=== PATIENT | male | born 1960 | race Caucasian/White ===

== ENCOUNTER 2022-12-14 14:26 | Outpatient (OUT) | payer BC, SELFPAY ==
[2022-12-14 15:16] LABS: Hematocrit 39.9 % (42.0-54.0); Hemoglobin 13.4 g/dL (14.0-18.0)
[2022-12-14 15:18] LABS: Bilirubin Urine NEGATIVE (NEGATIVE); Blood Urine SMALL (NEGATIVE); Clarity Urine CLEAR (CLEAR); Color Urine LT. YELLOW (YELLOW); Glucose Urine UA NEGATIVE (NEGATIVE); Ketones Urine NEGATIVE (NEGATIVE); Leukocyte Esterase Urine MODERATE (NEGATIVE); Nitrite Urine NEGATIVE (NEGATIVE); Protein Urine TRACE mg/dL (NEG/TRACE); Specific Gravity Urine 1.015 (1.005-1.025); Urobilinogen Urine 0.2 EU/dL (0.2-1.0); pH Urine 5.5 (5.0-9.0)
[2022-12-14 15:24] LABS: Protein Creatinine Ratio Urine 0.48; Total Protein Urine Random 32.2 mg/dL (<=11.9)
[2022-12-14 16:05] LABS: Percent Iron Saturation 31.4 %
[2022-12-14 16:08] LABS: Alanine Aminotransferase 25 U/L (16-63); Albumin Globulin Ratio 0.8; Albumin Level 3.7 g/dL (3.4-5.0); Alkaline Phosphatase 138 U/L (46-116); Anion Gap 13.7; Aspartate Amino Transferase 13 U/L (15-37); BUN Creatinine Ratio 17.5; Bilirubin Total 0.4 mg/dL (0.2-1.0); Calcium 8.9 mg/dL (8.5-10.1); Carbon Dioxide 20.9 mmol/L (21.0-32.0); Chloride 104 mmol/L (98-107); Estimated GFR (African America 30 (>=60); Estimated GFR (Non-African Ame 25 (>=60); Globulin 4.7 g/dL; Glucose 133 mg/dL (74-106); Phosphorus 5.2 mg/dL (2.6-4.7); Potassium 3.6 mmol/L (3.5-5.1); Sodium 135 mmol/L (136-145); Total Protein 8.4 g/dL (6.4-8.2); Uric Acid 7.4 mg/dL (3.5-7.2)
== END 2022-12-14 14:27 | disposition home or self-care (01) ==
LOC: LAB 14:30
PROVIDERS: PCP Family Medicine; Visit Provider Internal Medicine Nephrology
DX: E11.69 Type 2 diabetes mellitus with other specified complication (principal); N18.4 Chronic kidney disease, stage 4 (severe); N17.9 Acute kidney failure, unspecified; I95.89 Other hypotension; E66.9 Obesity, unspecified; D64.9 Anemia, unspecified; E11.22 Type 2 diabetes mellitus with diabetic chronic kidney disease
CPT/HCPCS: 36415; 80053; 81003; 82306; 82570; 82728; 82746; 83540; 83550; 83735; 83970; 84100; 84156; 84550; 85014; 85018

== ENCOUNTER 2023-04-28 13:15 | Outpatient (OUT) | payer BC, SELFPAY ==
[2023-04-28 13:44] LABS: Hematocrit 36.1 % (42.0-54.0); Hemoglobin 12.3 g/dL (14.0-18.0); Mean Corpuscular HGB Conc 34.1 g/dL (29.9-35.2); Mean Corpuscular Hemoglobin 30.7 pg (25.9-34.0); Platelet Count 278 10^3/uL (150-450); Red Blood Count 4.01 10^6/uL (4.70-6.10); Red Cell Distribution Width 13.5 % (11.0-15.0); White Blood Count 10.9 10^3/uL (4.0-11.0)
[2023-04-28 14:31] LABS: Alanine Aminotransferase 21 U/L (16-63); Albumin Globulin Ratio 0.8; Albumin Level 3.6 g/dL (3.4-5.0); Alkaline Phosphatase 135 U/L (46-116); Aspartate Amino Transferase 20 U/L (15-37); BUN Creatinine Ratio 16.4; Bilirubin Total 0.3 mg/dL (0.2-1.0); Calcium 9.1 mg/dL (8.5-10.1); Carbon Dioxide 19.1 mmol/L (21.0-32.0); Chloride 102 mmol/L (98-107); Estimated GFR (African America 30 (>=60); Estimated GFR (Non-African Ame 25 (>=60); Globulin 4.6 g/dL; Glucose 170 mg/dL (74-106); Phosphorus 2.3 mg/dL (2.6-4.7); Potassium 3.1 mmol/L (3.5-5.1); Sodium 138 mmol/L (136-145); Total Protein 8.2 g/dL (6.4-8.2); Uric Acid 7.5 mg/dL (3.5-7.2)
[2023-04-29 11:08] LABS: PTH, Intact 81 pg/mL (15-65)
== END 2023-04-28 13:16 | disposition home or self-care (01) ==
LOC: LAB 13:16
PROVIDERS: PCP Family Medicine; Visit Provider Internal Medicine Nephrology
DX: N18.4 Chronic kidney disease, stage 4 (severe) (principal); N17.9 Acute kidney failure, unspecified; I95.89 Other hypotension; E11.69 Type 2 diabetes mellitus with other specified complication; E66.9 Obesity, unspecified; D64.9 Anemia, unspecified; E79.0 Hyperuricemia without signs of inflammatory arthritis and tophaceous disease; E53.8 Deficiency of other specified B group vitamins
CPT/HCPCS: 36415; 80053; 81003; 82306; 82570; 82746; 83735; 83970; 84100; 84156; 84550; 85027

== ENCOUNTER 2023-04-29 03:00 | Outpatient (REF) | payer BC, SELFPAY ==
--- OUTSIDE RECORDS SUMMARY | 2023-04-29 13:30 | XMS_ITS | CCD ---
Author Name Unknown Address [address] [facility] [address] [place] [address] Organization [facility] Care Team Providers Care Medical Social Worker Name Role Phone NAZZAL, MUNIER Unavailable Unavailable NAZZAL, MUNIER Unavailable Unavailable TY RANDLEEN Unavailable Unavailable TY RANDLEEN Unavailable Unavailable Darion Randle MD Primary Care Provider Darion Randle MD Primary Care Provider SACHIN MCKEON Admitting Unavailable SACHIN MCKEON Attending Unavailable JERDARION Julia Primary Care Unavailable SACHIN MCKEON Consulting Unavailable KENROY BAHENA Consulting Unavailable DERIC, AKINFEMI S Consulting Unavailable UDAY, LIVIA Consulting Unavailable SACHIN MCKEON Admitting Unavailable SACHIN MCKEON Attending Unavailable JERDARION Primary Care Unavailable KENROY BAHENA Consulting Unavailable PARINJA, CHRIS Consulting Unavailable KAMERON, HAI S Consulting Unavailable KATHY PIMENTEL B Consulting Unavailable STEFANI AUGUSTIN Admitting Unavailable LAKISHA CARRIZALES Referring Unavailable MESERET BALLARD Consulting Unavailable ROSALES SINGH Attending Unavailable JERDARION Primary Care Unavailable CAITY RICHARDSON Consulting Unavailable SHELLEY HUGGINS Consulting Unavailable JERDARION Julia Primary Care Unavailable SHARON BARRY Consulting Unavailable LOVE HESS Attending Unavailable SHEYLA VIVEROS Admitting Unavailable ALLEGRA SCHERER Consulting Unavailable CECILIA HERNÁNDEZ Consulting Unavailable RICHARD, ZAINULABEDIN Consulting Unavailable KEVIN MYLES Consulting Unavailable ACE HANSON Consulting Unavailable ADRIENNE MEANS Consulting Unavailable BRENT OWEN Consulting Unavailable MARCUS YEPEZ Consulting Unavailable NATALIYA DUNN Consulting Unavailable MARKER, JÚNIOR Referring Unavailable JERDARION Primary Care Unavailable SHEELA, YO Consulting Unavailable CORDOVA, CHEPE Admitting Unavailable ABDOUL CAMARGO Attending Unavailable JOHAR, UMESH Dias Consulting Unavailable DOMINGO, IRAIS Dias Consulting Unavailable ABDOUL CAMARGO Consulting Unavailable JER, DR ORLANDO Primary Care Unavailable JER, DR ORLANDO Attending Unavailable JER, DR ORLANDO Admitting Unavailable JER, DR ORLANDO Primary Care Unavailable JER, DR ORLANDO Attending Unavailable JER, DR ORLANDO Admitting Unavailable CARRIZALES ., DR LAKISHA Tello Consulting Unavailable CARRIZALES ., DR LAKISHA Tello Attending Unavailable CARRIZALES ., DR LAKSIHA Tello Admitting Unavailable JER, DR ORLANDO Primary Care Unavailable COOK, DR KEVIN Daly Consulting Unavailable ZIEBER, DR JOSÉ Stokes Consulting Unavailable KRYSTAL, GABRIELE Consulting Unavailable KARISSA ., GIULIANA Consulting Unavailable ZULEIKA, KASSIE Consulting Unavailable SISTER, NEFTALI Consulting Unavailable SHAHLA II, SATURNINO Consulting Unavailable DIAB ., KENDELL Attending Unavailable DIAB ., KENDELL Admitting Unavailable GRECHNY ., THANH MAIER Consulting Unavailabl e JER, DR ORLANDO Primary Care Unavailable MARKER ., DR CALLEJAS Consulting Unavailable KLIPPER, MIRELA Consulting Unavailable DIAB ., KENDELL Consulting Unavailable UNLU, ERICK Consulting Unavailable JER, DR ORLANDO Consulting Unavailable JER, DR ORLANDO Primary Care Unavailable JER, DR ORLANDO Attending Unavailable JER, DR ORLANDO Admitting Unavailable MISC, DR GARCIA Consulting Unavailable JER, DR ORLANDO Primary Care Unavailable MISC, DR GARCIA Attending Unavailable MISC, DR GARCIA Admitting Unavailable FANI DILL Consulting Unavailable JER, DR ORLANDO Primary Care Unavailable FANI DILL Attending Unavailable AFNI DILL Admitting Unavailable MISC, DR GARCIA Consulting Unavailable JER, DR ORLANDO Primary Care Unavailable MISC, DR GARCIA Attending Unavailable MISC, DR GARCIA Admitting Unavailable MARIAMA, AVA Consulting Unavailable JER, DR ORLANDO Primary Care Unavailable MARIAMAAVA GARCIA Attending Unavailable MARIAMA, DELD Admitting Unavailable JER, DR ORLANDO Primary Care Unavailable MISC, DR GARCIA Attending Unavailable MISC, DR GARCIA Admitting Unavailable JER, DR ORLANDO Primary Care Unavailable MISC, DR GARCIA Attending Unavailable MISC, DR GARCIA Admitting Unavailable Luceros, Aziz Unavailable FANI DILL Referring Unavailable JER, RUGEN M Primary Care Unavailable GILLIAN BATISTA Admitting Unavailable GILLIAN BATISTA Attending Unavailable Darion Randle MD Primary Care Provider BRAYAN, BABAR Attending Unavailable EBRAHEIM, CITLALY Attending Unavailable BRAYAN, BABAR Attending Unavailable BRAYAN, BABAR Attending Unavailable BRAYAN, BABAR Admitting Unavailable MYLA LEGGETT Attending Unavailable BRAYAN, BABAR Attending Unavailable BRAYAN, BABAR Referring Unavailable BRAYAN, BABAR Referring Unavailable BRAYAN, BABAR Referring Unavailable EBRAHEIM, CITLALY Referring Unavailable RUTHIE DEVINE Attending Unavailable NON STAFF Primary Care Provider UnavailMD Jessica [facility]za [facility] MD Darion Randle Primary Care Provider [phone] MD Brandon Henrymi Admit Provider [phone] MD Arash Henry Attending Provider NON STAFF Primary Care Provider UnavailMD Jessica Esparza Emergency Provider [facility] Emergency Provider MD Darion Randle Primary Care Provider MD Arash Henry Admit Provider MD Arash Henry Attending Provider MD Saturnino Kaur Jr Emergency Provider CATHY LOW Attending Unavailable LEXIS KEEN Attending Unavailab LEXIS Freeman Attending Unavailab CATHY Garcia Attending Unavailable DARION RANDLE Attending Unavailable LAKISHA VIZCARRA Attending Unavailable LEXIS KEEN Attending Unavailab CATHY Garcia Attending Unavailable Jessica Black Admitting Unavailable Jessica Black Attending Unavailable NON STAFF Primary Care Unavailable Saturnino Kaur Jr Admitting Unavailable Saturnino Kaur Jr Attending Unavailable Darion Radnle Primary Care Unavailable NON STAFF Primary Care Unavailable Gary Wiley Admitting Unavailab Gary Varghese Attending Unavailab Darion Morel Primary Care Unavailable Arash Henry Admitting Unavailable Arash Henry Attending Unavailable Medications Current Medications Medication Drug Class(es) Dates Sig (Normalized) Sig (Original) acetaminophen 325 mg oral tablet (5 sources) Start: 07-08-2022 take 2 tablets by mouth every six hours as needed for pain acetaminophen (TYLENOL) 325 MG tablet Take 2 tablets by mouth every 6 hours as needed for Pain 0 07/08/2022 Active Start: 07-02-2022 acetaminophen (TYLENOL) tablet 650 mg Start: 06-04-2022 acetaminophen (TYLENOL) tablet 650 mg Start: 05-28-2022 acetaminophen (TYLENOL) tablet 650 mg acetaminophen 325 mg / HYDROcodone bitartrate 5 mg oral tablet (2 sources) Opioid Agonist Start: 05-31-2022 HYDROcodone-ac etaminophen (NORCO) 5-325 MG per tablet 1 tablet [id number] 200 actuat albuterol 0.09 mg/actuat metered dose inhaler (13 sources) beta2-Adrenerg ic Agonist Start: 06-30-2022 albuterol sulfate HF A (PROVENTIL;VENTOLIN;PROAIR) 108 (90 Base) MCG/ACT inhaler 2 puff Start: 06-04-2022 albuterol sulf ate HFA (PROVENTIL;VENTOLIN;PROAIR) 108 (90 Base) MCG/ACT inhaler 2 puff Start: 05-29-2022 take 2 puff(s) by inhalation every six hours as needed 2 puff, Inhalation, EVERY 6 HOURS PRN, Starting on 06/20/22 at 0654, Until Discontinued, Wheezing, Shortness of Breath Initiate RT Bronchodilator Protocol: Yes - Inpatient Protocol take 1 puff(s) by inhalation every four hours as needed Albuterol Sulfate HFA 108 (90 Base) MCG/ACT 1 puff as needed Inhalation every 4 hrs Active take 1 puff(s) by inhalation every four hours as needed Albuterol Sulfate HFA 108 (90 Base) MCG/ACT 1 puff as needed Inhalation every 4 hrs Active allopurinol 100 mg oral tablet (13 sources) Xanthine Oxidase Inhibitor Start: 06-05-2022 End: 07-08-2022 take 1 tablet by mouth once daily allopurinol (ZYLOPRIM) 100 MG tablet Take 1 tablet by mouth daily 30 tablet 0 07/08/2022 Active ALPRAZolam 0.5 mg oral tablet (8 sources) Benzodiazepine Start: 06-25-2022 ALPRAZolam (XANAX) tablet 0.5 mg Start: 06-24-2022 End: 06-25-2022 take 0.5 mg by mouth once daily as needed for sleep 0.5 mg, Oral, NIGHTLY PRN, Starting on Candace 06/24/22 at 2304, Until 06/25/22 at 1414, Sleep Start: 06-04-2022 End: 06-03-2022 ALPRAZolam (XANAX) tablet 0. 5 mg Start: 05-29-2022 take 0.5 mg by mouth once daily as needed 0.5 mg, Oral, NIGHTLY PRN, Starting on 05/29/22 at 2100, Until Discontinued, Sleep End: 07-08-2022 take 1 tablet by mouth once daily as needed for sleep ALPRAZolam (XANAX) 0.5 MG tablet Take 0.5 mg by mouth nightly as needed for Sleep. 0 07/08/2022 Discontinued (Stop Taking at Discharge) anticoagulant sodium citrate 4 % injection 1.7 mL (1 source) Start: 07-01-2022 anticoagulant sodium citrate 4 % injection 1.7 mL anticoagulant sodium citrate 4 % injection 1.8 mL (1 source) Start: 07-01-2022 anticoagulant sodium citrate 4 % injection 1.8 mL atorvastatin 20 mg oral tablet (17 sources) HMG-CoA Reductase Inhibitor Start: 01-23-2023 take 20 mg by mouth once daily Atorvastatin Active 20 MG PO Daily February 07, 2023 11:00pm Start: 05-29-2022 End: 07-08-2022 take 1 tablet by mouth once daily atorvastatin (LIPITOR) 20 MG tablet Take 1 tablet by mouth nightly 30 tablet 0 07/08/2022 Active benztropine mesylate 1 mg oral tablet (2 sources) Anticholinergic, Antihistamine Start: 02-08-2023 End: 02-14-2023 take 1 mg by mouth twice daily Benztropine Active 1 MG PO Twice daily 60 February 14, 2023 8:46am bisacodyl 10 mg rectal suppository (3 sources) Stimulant Laxative Start: 06-21-2022 bisacodyl (DULCOLAX) suppository 10 mg Start: 06-04-2022 bisacodyl (DUL COLAX) suppository 10 mg Blood Pressure Monitor KIT (2 sources) Start: 07-08-2022 Blood Pressure Monitor KIT Please check your blood pressure at least once daily (around the same time each day). 1 kit 0 07/08/2022 Active brexpiprazole 2 mg oral tablet (20 sources) Atypical Antipsychotic Start: 01-23-2023 take 1 tablet by mouth once daily Brexpiprazole (Rexulti) 2 mg Tablet Active 2 MG PO Daily January 23, 2023 12:00am Start: 06-24-2022 take 2 mg by mouth once daily 2 mg, Oral, DAILY, First dose (after last modification) on Cnadace 06/24/22 at 2330, Until Discontinued Start: 06-16-2022 End: 07-08-2022 take 1 tablet by mouth once daily REXULTI 2 MG TABS tablet Take 1 tablet by mouth daily 30 tablet 0 07/08/2022 Active Start: 06-11-2022 End: 06-20-2022 Start: 06-11-2022 take 1 tablet by gertrude th once daily brexpiprazole (REXULTI) 1 MG TABS tablet Take 1 tablet by mouth daily 30 tablet 1 06/11/2022 Active Start: 06-10-2022 brexpiprazole (REXULTI) tablet 1 mg Start: 06-05-2022 End: 06-11-2022 take 1 tablet by mouth once daily brexpiprazole (REXULTI) 2 MG TABS tablet Take 1 tablet by mouth daily 30 tablet 0 06/05/2022 06/11/2022 Discontinued (Stop Taking at Discharge) Start: 06-01-2022 brexpiprazole (REXULTI) tablet 2 mg Start: 05-29-2022 End: 05-31-2022 take 4 mg by mouth once daily 4 mg, Oral, DAILY, First dose on 05/29/22 at 1000, Until Discontinued End: 06-04-2022 take 1 tablet by mouth once daily brexpiprazole (REXULTI) 4 MG TABS tablet Take 4 mg by mouth daily 0 06/04/2022 Discontinued (Stop Taking at Discharge) 60 actuat budesonide 0.08 mg/actuat / formoterol fumarate 0.0045 mg/actuat metered dose inhaler (15 sources) Corticosteroid, beta2-Adrenergic Agonist Start: 06-30-2022 budesonide-formoterol (SYMBICORT) 80-4.5 MCG/ACT inhaler 2 puff Start: 06-20-2022 take 2 puff(s) by in halation twice daily 2 puff, Inhalation, 2 TIMES DAILY, First dose on 06/20/22 at 0800, Until Discontinued Rinse mouth out with water (without swallowing) after every dose. Start: 06-11-2022 End: 07-08-2022 take 2 puff(s) by inhalation in the morning budesonide-formoterol (SYMBICORT) 80-4.5 MCG/ACT AERO Inhale 2 puffs into the lungs in the morning and 2 puffs in the evening. 10.2 g 0 07/08/2022 Active Start: 06-11-2022 Start: 06-05-2022 budesonide-for moterol (SYMBICORT) 80-4.5 MCG/ACT inhaler 2 puff Start: 05-29-2022 End: 06-11-2022 take 2 puff(s) by inhalation twice daily 2 puff, Inhalation, 2 TIMES DAILY, First dose on 05/29/22 at 1000, Until Discontinued Rinse mouth out with water (without swallowing) after every dose. take 2 puff(s) by in halation twice daily Symbicort 80-4.5 MCG/ACT 2 puffs Inhalation Twice a day Active busPIRone hydrochloride 15 mg oral tablet (1 source) Start: 02-13-2023 take 15 mg by mouth twice daily Buspirone Active 15 MG PO Twice daily 60 February 12, 2023 11:00pm cefepime (MAXIPIME) infusion (1 source) Start: 06-25-2022 End: 07-08-2022 take 2000 mg intravenously three times weekly cefepime (MAXIPIME) infusion Infuse 2,000 mg intravenously three times a week for 6 doses Compound per protocol 12 g 0 06/25/2022 07/08/2022 Discontinued (Stop Taking at Discharge) dapagliflozin 10 mg oral tablet (2 sources) Sodium-Glucose Cotransporter 2 Inhibitor Start: 06-14-2022 End: 07-08-2022 take 1 tablet by mouth once daily FARXIGA 10 MG tablet TAKE 1 TABLET BY MOUTH ONCE DAILY 0 06/14/2022 07/08/2022 Discontinued (Stop Taking at Discharge) Drug or medicament (substance) (2 sources) Start: 06-25-2022 End: 07-08-2022 Start: 06-11-2022 0.5 ML dulaglutide 6 MG/ML Auto-Injector [Trulicity] (9 sources) GLP-1 Receptor Agonist Trulicity 3 MG/0.5ML as directed Subcutaneous ONCE A WEEK Active End: 07-08-2022 Dulaglutide (TRULICITY) 0.75 MG/0.5ML SOPN Inject 0.75 mg into the skin once a week 0 07/08/2022 Discontinued (Stop Taking at Discharge) End: 06-20-2022 ergocalciferol 1.25 mg oral capsule (7 sources) Provitamin D2 Compound Start: 06-14-2022 End: 07-08-2022 take 1 capsule by mouth every week Ergocalciferol (VITAMIN D) 50605 units CAPS Take 50,000 Units by mouth once a week for 4 doses 4 capsule 0 06/14/2022 07/08/2022 Discontinued (Stop Taking at Discharge) Start: 06-07-2022 vitamin D (ERG OCALCIFEROL) capsule 50,000 Units Start: 05-31-2022 vitamin D (ERG OCALCIFEROL) capsule 50,000 Units End: 06-11-2022 take 1.25 mg by mouth every week vitamin D (ERGOCALCIFEROL) 1.25 MG (37333 UT) CAPS capsule Take 50,000 Units by mouth once a week Tuesday 0 06/11/2022 Discontinued (Stop Taking at Discharge) fluconazole 100 mg oral tablet (1 source) Azole Antifungal Start: 02-22-2023 take 1 tablet by mouth once daily Fluconazole (Diflucan) 100 mg tablet Active 100 MG PO Daily 10 15February 22, 2023 12:00am fluticasone propionate 0.05 mg/actuat metered dose nasal spray (4 sources) Corticosteroid Start: 07-09-2022 take 1 spray(s) nasal route once daily fluticasone (FLONASE) 50 MCG/ACT nasal spray 1 spray by Each Nostril route daily 0 07/09/2022 Active Start: 07-09-2022 take 1 spray(s) nasa l route once daily fluticasone (FLONASE) 50 MCG/ACT nasal spray 1 spray by Each Nostril route daily 0 07/09/2022 Active Start: 07-02-2022 fluticasone (F LONASE) 50 MCG/ACT nasal spray 1 spray take 1 spray(s) nasa l route once daily Flonase Allergy Relief 50 MCG/ACT 1 spray in each nostril Nasally Once a day Active folic acid 1 mg oral tablet (4 sources) Start: 12-21-2022 take 1 mg by mouth once daily Folic Acid Active 1 MG PO Daily February 07, 2023 11:00pm furosemide 40 mg oral tablet (8 sources) Loop Diuretic Start: 01-23-2023 take 40 mg by mouth once daily Furosemide Active 40 MG PO Daily February 07, 2023 11:00pm Start: 06-26-2022 End: 06-26-2022 40 mg, IntraVENous, ONCE, 1 dose, On 06/26/22 at 1330 gabapentin 300 mg oral capsule (19 sources) Anti-epileptic Agent Start: 02-08-2023 take 300 mg by mouth once daily Gabapentin Active 300 MG PO Daily February 07, 2023 11:00pm Start: 01-23-2023 End: 01-23-2023 Gabapentin Discontinued MG O ctober 2022 11:00pm January 23, 2023 3:59pm Start: 01-23-2023 take 300 mg by mouth twice daily Gabapentin Active 300 MG PO Twice daily January 23, 2023 12:00am Start: 06-27-2022 End: 08-07-2022 take 1 capsule by mouth once daily gabapentin (NEURONTIN) 300 MG capsule Take 1 capsule by mouth daily for 30 days. 30 capsule 0 07/08/2022 Active Start: 06-25-2022 End: 07-08-2022 take 300 mg by mouth twice daily 300 mg, Oral, 2 TIMES DAILY, First dose on Tue06/25/22 at 2100, Until Discontinued glucagon (rdna) 1 mg injection (4 sources) Antihypoglycemic Agent Start: 06-20-2022 glucago n (rDNA) injection 1 mg Start: 05-29-2022 glucagon (rDNA ) injection 1 mg Glucose (13 sources) Start: 06-30-2022 dextrose bolus 10% 125 mL Start: 06-30-2022 glucose chewab le tablet 16 g Start: 06-20-2022 dextrose 10 % infusion Start: 06-20-2022 16 g (4 tablet ), Oral, PRN, Starting on Tue06/20/22 at 0654, Until Discontinued, Low blood sugar If blood glucose is LESS THAN 70 mg/dL and patient is alert and tolerating oral. Give 4 tablets (16g) Repeat blood glucose in 15 minutes. If blood glucose is LESS THAN 70 mg/dL, repeat treatment and recheck blood glucose in 15 minutes x 2. If blood glucose remains LESS THAN 70 mg/dL, notify provider. Start: 06-04-2022 dextrose 10 % infusion Start: 06-04-2022 glucose chewab le tablet 16 g Start: 06-04-2022 dextrose bolus 10% 125 mL Start: 05-29-2022 End: 06-01-2022 dextrose 10 % infusion Start: 05-29-2022 dextrose bolus 10% 125 mL Start: 05-29-2022 glucose chewab le tablet 16 g Start: 05-28-2022 dextrose 50 % IV solution Handicap Placard MISC (3 sources) Start: 06-11-[address] MISC by Does not apply route Duration: 3 months / Dx:Amb difficulty 1 each 0 06/11/2022 Suspended Start: 06-11-[address] MISC by Does not apply route Duration: 3 months / Dx:Amb difficulty 1 each 0 06/11/2022 Active 1 ml heparin sodium, porcine 5000 unt/ml prefilled syringe (13 sources) Unfractionated Heparin, Anti-coagulant Start: 07-06-2022 heparin (porcine) injection 2,500 Units Start: 06-30-2022 heparin (porci ne) injection 5,000 Units Start: 06-29-2022 1,800 Units, I ntraCATHeter, PRN, Starting on Tue06/29/22 at 1655, Until Discontinued, Line Care For installation into each catheter limb Venous 1800 units To be given in Dialysis Start: 06-29-2022 1,700 Units, I ntraCATHeter, PRN, Starting on Tue06/29/22 at 1655, Until Discontinued, Line Care For installation into each catheter limb Arterial 1700 units To be given in Dialysis Start: 06-28-2022 End: 06-28-2022 ONCE PRN, 1 dose, Starting o n Tue06/28/22 at 1558, Until Tue06/28/22 at 1558 Start: 06-24-2022 End: 06-29-2022 1,400 Units, IntraCATHeter, PRN, Starting on Tue06/24/22 at 1611, Until Tue06/29/22 at 1656, Line Care For installation into each catheter limb Venous 1400 units To be given in Dialysis Start: 06-24-2022 End: 06-29-2022 1,100 Units, IntraCATHeter, PRN, Starting on Tue06/24/22 at 1611, Until Tue06/29/22 at 1656, Line Care For installation into each catheter limb Arterial 1100 units To be given in Dialysis Start: 06-24-2022 End: 06-24-2022 ONCE PRN, 1 dose, Starting o n Tue06/24/22 at 1438, Until Tue06/24/22 at 1438 Start: 06-21-2022 inject 1 dose by sub cutaneous injection three times daily 5,000 Units, SubCUTAneous, EVERY 8 HOURS SCHEDULED (3 times per day), First dose on Tue06/21/22 at 2200, Until Discontinued Start: 05-29-2022 heparin (porci ne) injection 5,000 Units hyoscyamine sulfate 0.125 mg sublingual tablet (2 sources) Start: 05-28-2022 hyoscyamine (L EVSIN/SL) sublingual tablet 125 mcg 3 ml insulin glargine 100 unt/ml pen injector (6 sources) Insulin Analog Start: 07-08-2022 insulin glargi ne (LANTUS SOLOSTAR) 100 UNIT/ML injection pen Inject 25 Units into the skin nightly 5 Adjustable Dose Pre-filled Pen Syringe 0 07/08/2022 Active Start: 06-30-2022 insulin glargi ne (LANTUS) injection vial 25 Units Start: 06-25-2022 inject 25 [IU] by clements bcutaneous injection once daily 25 Units, SubCUTAneous, NIGHTLY, First dose (after last modification) on Tue06/25/22 at 2100, Until Discontinued Start: 06-23-2022 End: 06-25-2022 inject 20 [IU] by subcutaneous injection once daily 20 Units, SubCUTAneous, NIGHTLY, First dose (after last modification) on Tue06/23/22 at 2100, Until Discontinued Start: 06-22-2022 End: 06-23-2022 inject 15 [IU] by subcutaneous injection once daily 15 Units, SubCUTAneous, NIGHTLY, First dose on Tue06/22/22 at 2230, Until Discontinued insulin lispro 100 unt/ml injectable solution (8 sources) Insulin Analog Start: 06-30-2022 insulin lispro (HUMALOG) injection vial 0-4 Units Start: 06-20-2022 0-4 Units, Sub CUTAneous, NIGHTLY, First dose on Tue06/20/22 at 2100, Until Discontinued If continuous tube feedings/TPN/NPO, give correction dose based on result, no reduction in dose. If eating or bolus tube feeding: Corrective Bedtime Algorithm Glucose: Dose: 70-299 No Insulin 300-349 4 Units Over 349 4 Units and notify physician Start: 06-20-2022 0-8 Units, Sub CUTAneous, 3 TIMES DAILY WITH MEALS, First dose on 06/20/22 at 0800, Until Discontinued Medium Dose Corrective Algorithm Glucose: Dose: 70-199 No Insulin 200-249 2 Units 250-299 4 Units 300-349 6 Units Over 349 8 Units and notify physician Start: 05-29-2022 insulin lispro (HUMALOG) injection vial 0-16 Units 3 ml insulin, regular, human 500 unt/ml pen injector (15 sources) Insulin Start: 06-11-2022 End: 07-11-2022 insulin regular human (HUMUL IN R U-500 KWIKPEN) 500 UNIT/ML SOPN concentrated injection pen Inject 10 Units into the skin 2 times daily (with meals) F/u with PCP for further adjustment, monitor gluc 1 each 0 06/11/2022 07/08/2022 Discontinued (Stop Taking at Discharge) Start: 06-11-2022 End: 07-11-2022 Start: 06-04-2022 insulin regula r human (humuLIN R U-500 KWIKPEN) 500 UNIT/ML concentrated injection pen 50 Units Start: 06-04-2022 End: 06-11-2022 insulin regular human (HUMUL IN R U-500 KWIKPEN) 500 UNIT/ML SOPN concentrated injection pen Inject 50 Units into the skin 2 times daily (with meals) 0 06/04/2022 06/11/2022 Discontinued (REORDER) Start: 06-03-2022 End: 06-04-2022 insulin regular human (HUMUL IN R U-500 KWIKPEN) 500 UNIT/ML SOPN concentrated injection pen Inject 85 Units into the skin 2 times daily (with meals) 0 06/03/2022 06/04/2022 Discontinued (Stop Taking at Discharge) Start: 05-31-2022 End: 06-04-2022 insulin regular human (humuL IN R U-500 KWIKPEN) 500 UNIT/ML concentrated injection pen 85 Units inject 50 [IU] by clements bcutaneous injection at dinner HumuLIN R U-500 KwikPen 500 UNIT/ML as directed Subcutaneous 40-50 UNITS BEFORE AM AND PM MEALS Active End: 06-03-2022 insulin regular human (HUMUL IN R) 500 UNIT/ML concentrated injection vial Inject 200 Units into the skin 3 times daily (with meals) 0 06/03/2022 Discontinued (Stop Taking at Discharge) KERENDIA 10 MG TABS (1 source) Start: 06-16-2022 End: 07-08-2022 KERENDIA 10 MG TABS lamoTRIgine 200 mg oral tablet (17 sources) Mood Stabilizer, Anti-epileptic Agent Start: 01-23-2023 take 200 mg by mouth once daily Lamotrigine Active 200 MG PO Daily February 07, 2023 11:00pm Start: 07-08-2022 End: 07-08-2022 take 1 tablet by mouth once daily lamoTRIgine (LAMICTAL) 200 MG tablet Take 1 tablet by mouth daily 30 tablet 0 07/08/2022 Active Start: 06-20-2022 lamoTRIgine (L AMICTAL) tablet 200 mg Start: 05-29-2022 lamoTRIgine (L AMICTAL) tablet 200 mg LORazepam 1 mg oral tablet (3 sources) Benzodiazepine Start: 02-08-2023 take 1 mg by mouth three times daily Lorazepam Active 1 MG PO Three times daily February 07, 2023 11:00pm Start: 01-23-2023 take 1 tablet by gertrude th every twelve hours Lorazepam (Ativan) 2 mg tablet Active 2 MG PO Q12H 10 January 23, 2023 12:00am metoprolol tartrate 25 mg oral tablet (7 sources) beta-Adrenergic Sapna Start: 07-19-2022 End: 09-08-2022 take 1 tablet by mouth twice daily metoprolol tartrate (LOPRESSOR) 25 MG tablet Take 1 tablet by mouth 2 times daily 60 tablet 0 07/19/2022 09/08/2022 Discontinued (LIST CLEANUP) Start: 06-22-2022 End: 06-22-2022 2.5 mg, IntraVENous, ONCE, 1 dose, On Tue06/22/22 at 2030 DO NOT ADMINISTER IF HEART RATE LESS THAN 60 Start: 06-04-2022 End: 06-04-2022 metoprolol tartrate (LOPRESS OR) tablet 25 mg Start: 05-29-2022 End: 07-08-2022 take 50 mg by mouth twice daily 50 mg, Oral, 2 TIMES DAILY, First dose on 05/29/22 at 1000, Until Discontinued midodrine hydrochloride 2.5 mg oral tablet (5 sources) alpha-Adrenergic Agonist Start: 02-08-2023 take 5 mg by mouth once daily Midodrine Active 5 MG PO Q1D@February 07, 2023 11:00pm Start: 01-23-2023 take 5 mg by mouth t hree times daily Midodrine Active 5 MG PO Three times daily January 23, 2023 12:00am Start: 07-19-2022 take 1 tablet by gertrude th three times daily at mealtime midodrine (PROAMATINE) 2.5 MG tablet Take 1 tablet by mouth 3 times daily (with meals) Hold for systolic blood pressure greater than 110 90 tablet 0 07/19/2022 Active mirtazapine 45 mg oral tablet (18 sources) Start: 02-13-2023 take 45 mg by mouth once daily at bedtime Mirtazapine Active 45 MG PO Daily at bedtime February 12, 2023 11:00pm Start: 01-23-2023 End: 02-13-2023 take 30 mg by mouth at bedtime Mirtazapine Discontinue d 30 MG PO Bedtime February 07, 2023 11:00pm February 13, 2023 10:29am Start: 05-29-2022 End: 07-08-2022 take 1 tablet by mouth once daily mirtazapine (REMERON) 30 MG tablet Take 1 tablet by mouth nightly 30 tablet 0 07/08/2022 Active nitrofurantoin, macrocrystals 25 mg / nitrofurantoin, monohydrate 75 mg oral capsule (1 source) Nitrofuran Antibacterial Start: 02-22-2023 take 1 capsule by mouth every twelve hours at mealtime Nitrofurantoin Monohyd/M-Cryst (Macrobid) 100 mg capsule Active 100 MG PO Q12H 10 February 22, 2023 12:00am administer with a meal/food; swallow whole; do not open, crush, dissolve , or chew omeprazole 40 mg delayed release oral capsule (14 sources) Proton Pump Inhibitor Start: 01-23-2023 End: 02-08-2023 take 40 mg by mouth once daily Omeprazole Active 40 MG PO Daily February 07, 2023 11:00pm Start: 07-08-2022 End: 07-08-2022 take 1 capsule by mouth once daily omeprazole (PRILOSEC) 40 MG delayed release capsule Take 1 capsule by mouth daily 30 capsule 0 07/08/2022 Active ondansetron (ZOFRAN-ODT) disintegrating tablet 4 mg (3 sources) Start: 07-02-2022 ondansetron (Z OFRAN-ODT) disintegrating tablet 4 mg Start: 06-04-2022 ondansetron (Z OFRAN-ODT) disintegrating tablet 4 mg Start: 05-28-2022 ondansetron (Z OFRAN-ODT) disintegrating tablet 4 mg oxyCODONE hydrochloride 5 mg oral tablet (2 sources) Opioid Agonist Start: 06-20-2022 oxyCODONE (MARCELO ICODONE) immediate release tablet 5 mg pantoprazole 40 mg delayed release oral tablet (6 sources) Proton Pump Inhibitor Start: 07-01-2022 pantoprazole (PROTONIX) tablet 40 mg Start: 05-30-2022 End: 06-20-2022 take 40 mg by mouth once daily before breakfast 40 mg, Oral, DAILY BEFORE BREAKFAST, First dose on 06/20/22 at 0715, Until Discontinued Do not crush or break. polyethylene glycol 3350 [id number] mg powder for oral solution (6 sources) Osmotic Laxative Start: 07-08-2022 take 17 g by mouth once daily as needed for constipation polyethylene glycol (GLYCOLAX) 17 g packet Take 17 g by mouth daily as needed for Constipation 0 07/08/2022 Active Start: 06-05-2022 polyethylene g lycol (GLYCOLAX) packet 17 g potassium bicarbonate 20 meq effervescent oral tablet (1 source) Start: 06-01-2022 potassium bicarb-citric acid (EFFER-K) effervescent tablet 20 mEq promethazine hydrochloride 12.5 mg oral tablet (3 sources) Phenothiazine End: 07-08-2022 take 1 tablet by mouth every six hours as needed for nausea promethazine (PHENERGAN) 12.5 MG tablet Take 12.5 mg by mouth every 6 hours as needed for Nausea 0 07/08/2022 Discontinued (Stop Taking at Discharge) propranolol hydrochloride 20 mg oral tablet (9 sources) beta-Adrenergic Sapna Start: 07-08-2022 take 1 tablet by mouth three times daily propranolol (INDERAL) 20 MG tablet Take 1 tablet by mouth 3 times daily 90 tablet 0 07/08/2022 Active Start: 06-30-2022 propranolol (I NDERAL) tablet 20 mg Start: 06-04-2022 End: 06-20-2022 take 20 mg by mouth three times daily 20 mg, Oral, 3 TIMES DAILY, First dose on 06/20/22 at 0900, Until Discontinued sennosides, fdc 8.6 mg oral tablet (4 sources) Start: 06-30-2022 senna (SENOKOT ) tablet 17.2 mg Start: 06-21-2022 senna (SENOKOT ) tablet 8.6 mg Start: 06-04-2022 senna (SENOKOT ) tablet 17.2 mg tamsulosin hydrochloride 0.4 mg oral capsule (10 sources) alpha-Adrenergic Sapna Start: 07-08-2022 take 1 capsule by mouth once daily tamsulosin (FLOMAX) 0.4 MG capsule Take 1 capsule by mouth daily 30 capsule 0 07/08/2022 Active Start: 05-28-2022 End: 07-08-2022 tamsulosin (FLOMAX) capsule 0.4 mg traZODone hydrochloride 100 mg oral tablet (1 source) Serotonin Reuptake Inhibitor Start: 02-13-2023 take 100 mg by mouth once daily at bedtime Trazodone Active 100 MG PO Daily at bedtime February 12, 2023 11:00pm 24 hr venlafaxine 150 mg extended release oral capsule (20 sources) Serotonin and Norepinephrine Reuptake Inhibitor Start: 02-08-2023 take 150 mg by mouth once daily Venlafaxine Active 150 MG PO Daily February 07, 2023 11:00pm Start: 01-23-2023 Venlafaxine Ac tive 75 MG PO Daily January 22, 2023 11:00pm Take with 150 to make 225mg Start: 01-23-2023 take 225 mg by mouth once addie y Venlafaxine Active 225 MG PO Daily January 23, 2023 12:00am Start: 07-01-2022 venlafaxine (E FFEXOR XR) extended release capsule 150 mg Start: 06-05-2022 venlafaxine (E FFEXOR XR) extended release capsule 150 mg Start: 06-01-2022 End: 07-08-2022 take 1 capsule by mouth once daily venlafaxine (EFFEXOR XR) 150 MG extended release capsule Take 1 capsule by mouth daily 30 capsule 0 07/08/2022 Active Start: 05-29-2022 End: 05-31-2022 take 225 mg by mouth once daily 225 mg, Oral, DAILY, F irst dose on 05/29/22 at 1000, Until Discontinued Do not crush or break. take 1 capsule by [facility] every twenty-four hours Venlafaxine HCl ER 75 MG 1 capsule with food Orally Once a day Active End: 06-11-2022 take 3 capsules by mouth once daily venlafaxine (EFFEXOR XR) 75 MG extended release capsule Take 225 mg by mouth daily 0 06/11/2022 Discontinued (Stop Taking at Discharge) (1 source) Start: 06-16-2022 (10 sources) Start: 06-29-2022 End: 07-10-2022 take 20 mL intravenously every hour 2,000 mg, IntraVENous, at 40 mL/hr, Administer over 30 Minutes, USER SPECIFIED (Once per day on Tue Sat), First dose (after last reorder) on Tue06/29/22 at 0900, For 5 doses Please administer after dialysis on dialysis days. Please contact pharmacy to adjust times if dialysis schedule changes.- if HD stops, pls give it 3 x per week on the floor - Administer as slow IV Push over 5 mins Reconst itute 2 g vial with 10 mL of designated diluent. Then, to produce a 100 mg/mL solution, further dilute in syringe to 20 mL. Start: 06-24-2022 End: 06-28-2022 take 20 mL intravenously every hour 2,000 mg, IntraVENous, at 40 mL/hr, Administer over 30 Minutes, THREE TIMES WEEKLY (Once per day on Tue), First dose on Tue06/24/22 at 1445, For 14 days Please administer after dialysis on dialysis days. Please contact pharmacy to adjust times if dialysis schedule changes.- if HD stops, pls give it 3 x per week on the floor - Administer as slow IV Push over 5 mins Reconstitute 2 g vial with 10 mL of designated diluent. Then, to produce a 100 mg/mL solution, further dilute in syringe to 20 mL. Start: 06-22-2022 End: 06-24-2022 take 100 mg intravenously every twenty-four hours 2,000 mg, IntraVENous, EVERY 24 HOURS, 14 doses, First dose on Tue06/22/22 at 1900, Last dose on Tue07/05/22 at 1900 Antimicrobial Indications: Urinary Tract Infection UTI duration of therapy: Other Other Urinary Tract Infection Duration: 14 Administer as slow IV Push over 5 mins Reconstitute 2 g vials with 19.2 mL of designated diluent to produce a 100mg/mL solution Start: 06-21-2022 End: 06-24-2022 IntraVENous, at 75 mL/hr, CONTINUOUS, Starting on Tue06/21/22 at 0945 Start: 06-20-2022 End: 06-20-2022 2,500 mg (15.7 mg/kg), Intra VENous, at 166.7 mL/hr, Administer over 180 Minutes, ONCE, On [place] 06/20/22 at 0930, For 1 dose Start: 06-20-2022 End: 06-22-2022 2,250 mg, IntraVENous, EVERY 8 HOURS, 21 doses, First dose on [place] 06/20/22 at 0900, Last dose on [place] 06/27/22 at 0500 Antimicrobial Indications: Urinary Tract Infection UTI duration of therapy: 7 days Start: 06-20-2022 [Order 1 Start ] Name: dextrose bolus 10% 125 mL Signed Summary: 125 mL, IntraVENous, at 937.5 mL/hr, Administer over 8 Minutes, PRN, Other, Blood glucose 40 - 69 mg/dL and patient NOT ALERT or NPO, Starting on [place] 06/20/22 at 0654 Repeat blood glucose in 15 minutes. If blood glucose remains LESS THAN 70 mg/dL, repeat treatment and recheck blood glucose in 15 minutes x 2. If using glycemic management system, dose as instructed per system. If blood glucose remains LESS THAN 70 mg/dL after 2 intravenous boluses start dextrose 10% at 100 mL/hour and notify provider. [Order 1 End] [Order 2 Start] Name: dextrose bolus 10% 250 mL Signed Summary: 250 mL, IntraVENous, at 937.5 mL/hr, Administer over 16 Minutes, PRN, Other, Blood glucose LESS THAN 40 mg/dL and patient NOT ALERT or NPO, Starting on [place] 06/20/22 at 0654 Repeat blood glucose in 15 minutes. If blood glucose remains LESS THAN 70 mg/dL, repeat treatment and recheck blood glucose in 15 minutes x 2. If using glycemic management system, dose as instructed per system. If blood glucose remains LESS THAN 70 mg/dL after 2 intravenous boluses start dextrose 10% at 100 mL/hour and notify provider. [Order 2 End] Start: 06-20-2022 [Order 1 Start ] Name: acetaminophen (TYLENOL) tablet 650 mg Signed Summary: 650 mg, Oral, EVERY 6 HOURS PRN, Starting on [place] 06/20/22 at 0654, Until Discontinued, Pain Mild (1-3), Fever, For temp greater than 100.4 F (38 C) Maximum dose of acetaminophen is 4000 mg from all sources in 24 hours. [Order 1 End] [Order 2 Start] Name: acetaminophen (TYLENOL) suppository 650 mg Signed Summary: 650 mg, Rectal, EVERY 6 HOURS PRN, Starting on 06/20/22 at 0654, Until Discontinued, Pain Mild (1-3), Fever, For temp greater than 100.4 F (38 C) Administer if oral route cannot be used. [Order 2 End] Start: 06-20-2022 [Order 1 Start ] Name: ondansetron (ZOFRAN-ODT) disintegrating tablet 4 mg Signed Summary: 4 mg, Oral, EVERY 8 HOURS PRN, Starting on 06/20/22 at 0654, Until Discontinued, Nausea, Vomiting [Order 1 End] [Order 2 Start] Name: ondansetron (ZOFRAN) injection 4 mg Signed Summary: 4 mg, IntraVENous, EVERY 6 HOURS PRN, Starting on 06/20/22 at 0654, Until Discontinued, Nausea, Vomiting Administer if oral route cannot be used. [Order 2 End] Start: 06-20-2022 End: 06-20-2022 take 100 mg intravenously once 1,000 mg, IntraVENous, ONCE, 1 dose, On 06/20/22 at 0515 Antimicrobial Indications: Urinary Tract Infection Administer as slow IV Push over 5 mins Reconstitute 1 g vials with 9.6 mL of designated diluent to produce a 100 mg/mL solution. Completed/Discontinued Medications Medication Drug Class(es) Dates Sig (Normalized) Sig (Original) amLODIPine 10 mg oral tablet (4 sources) Dihydropyridine Calcium Channel Sapna Start: 05-29-2022 End: 06-11-2022 amLODIPine (NORVASC) tablet 10 mg calcium chloride 0.0014 meq/ml / potassium chloride 0.004 meq/ml / sodium chloride 0.103 meq/ml / sodium lactate 0.028 meq/ml injectable solution (2 sources) Start: 06-20-2022 End: 06-20-2022 1,300 mL, IntraVENous, at 644.6 mL/hr, Administer over 121 Minutes, ONCE, On 06/20/22 at 0615, For 1 dose cefepime (MAXIPIME) 2,000 mg in sodium chloride 0.9 % 50 mL IVPB (mini-bag) (1 source) Start: 07-01-2022 End: 07-07-2022 cefepime (MAXIPIME) 2,000 mg in sodium chloride 0.9 % 50 mL IVPB (mini-bag) cephalexin 500 mg oral capsule (4 sources) Cephalosporin Antibacterial Start: 05-31-2022 End: 06-11-2022 cephALEXin (KEFLEX) capsule 500 mg clonazePAM 0.5 mg oral tablet (1 source) Benzodiazepine Start: 06-25-2022 End: 06-27-2022 take 0.5 mg by mouth every twelve hours 0.5 mg, Oral, EVERY 12 HOURS, First dose on Tue06/25/22 at 1530, Until Discontinued 0.4 ml enoxaparin sodium 100 mg/ml prefilled syringe (1 source) Low Molecular Weight Heparin Start: 06-20-2022 End: 06-21-2022 inject 40 mg by subcutaneous injection twice daily 40 mg, SubCUTAneous, 2 TIMES DAILY, First dose on Tue06/20/22 at 0900, Until Discontinued Indication of Use: Prophylaxis-DVT/P E Administer by deep subCUTAneous injection with pt lying down. Alternate injection sites on abdominal wall. Do not rub site after injection. Check with provider prior to any invasive procedure. 10 ml lidocaine hydrochloride 10 mg/ml injection (3 sources) Antiarrhythmic, Amide Local Anesthetic Start: 09-08-2022 End: 09-08-2022 lidocaine PF 1 % injection Start: 06-30-2022 lidocaine (XYL OCAINE) 2 % uro-jet Start: 06-20-2022 Topical, PRN, Pain, Starting on Tue06/20/22 at 0805 300 ml linezolid 2 mg/ml injection (1 source) Oxazolidinone Antibacterial Start: 06-21-2022 End: 06-22-2022 600 mg, IntraVENous, at 300 mL/hr, Administer over 60 Minutes, EVERY 12 HOURS, First dose on Tue06/21/22 at 0015 Avoid aged, smoked, or fermented foods including cheese, sour cream, soy sauce, sauerkraut, yogurt, sausage, pepperoni, salami, and dried fruit. Limit caffeine. lisinopril 20 mg oral tablet (2 sources) Angiotensin Converting Enzyme Inhibitor Start: 05-29-2022 End: 06-03-2022 take 20 mg by mouth once daily 20 mg, Oral, DAILY, First dose on Tue05/29/22 at 1000, Until Discontinued 50 ml magnesium sulfate 40 mg/ml injection (1 source) Start: 05-29-2022 End: 05-29-2022 magnesium sulfate 2000 mg in 50 mL IVPB premix piperacillin-carrol obactam (ZOSYN) 3,375 mg in sodium chloride 0.9 % 50 mL IVPB (mini-bag) (1 source) Start: 05-28-2022 End: 05-31-2022 3,375 mg, IntraVENous, EVERY 8 HOURS, 21 doses, First dose on Tue05/28/22 at 1645, Last dose on Tue06/04/22 at 0845 Antimicrobial Indications: Urinary Tract Infection UTI duration of therapy: 7 days QUEtiapine 100 mg oral tablet (1 source) Atypical Antipsychotic Start: 02-08-2023 End: 02-13-2023 take 100 mg by mouth at bedtime Quetiapine Discontinued 100 MG PO Bedtime February 07, 2023 11:00pm February 13, 2023 10:29am 72 hr scopolamine 0.0139 mg/hr transdermal system (1 source) Anticholinergic Start: 06-29-2022 End: 06-29-2022 1 patch, TransDERmal, Administer over 72 Hours, EVERY 72 HOURS, First dose on Tue06/29/22 at 0845, For 1 dose Remove in 72 hours Pre-op (day of surgery) sodium bicarbonate 150 mEq in sterile water infusion (1 source) Start: 05-28-2022 End: 05-29-2022 sodium bicarbonate 150 mEq in sterile water infusion sodium bicarbonate 75 mEq in sodium chloride 0.45 % 1,000 mL infusion (1 source) Start: 05-29-2022 End: 05-31-2022 sodium bicarbonate 75 mEq in sodium chloride 0.45 % 1,000 mL infusion 5 ml sodium chloride 9 mg/ml injection (15 sources) Start: 07-02-2022 0.9 % sodium chloride infusion Start: 07-02-2022 End: 07-04-2022 sodium chloride flush 0.9 % injection 5-40 mL Start: 06-20-2022 take 1 dose intraven ously twice daily 5-40 mL, IntraVENous, EVERY 12 HOURS SCHEDULED (2 times per day), First dose on Tue06/20/22 at 0900, Until Discontinued For Line Patency: Peripheral IV = 5 mL; Midline or Central Line = 10 mL/lumen. If following IV push medication, administer flush at same rate as the IV push. Flush volume is determined by type of infusion therapy being given. For non-viscous solutions use: Peripheral IV = 5 mL Midline or Central Line = 10 mL/lumen For viscous solutions (i.e. blood components, parenteral nutrition, contrast media, or after obtaining blood sample) use: Peripheral IV = 10 mL Midline or Central Line = 20 mL/lumen Start: 06-20-2022 End: 06-21-2022 IntraVENous, at 100 mL/hr, CONTINUOUS, Starting on Tue06/20/22 at 0715 Start: 06-20-2022 End: 06-29-2022 IntraVENous, at 100 mL/hr, CONTINUOUS, Starting on Tue06/29/22 at 0800, Pre-op (day of surgery) Start: 06-20-2022 take 5-40 mL intrave nously once as needed 5-40 mL, IntraVENous, PRN, Starting on Tue06/20/22 at 0654, Until Discontinued, Line Care, After every IV line use For Line Patency: Peripheral IV = 5 mL; Midline or Central Line = 10 mL/lumen. If following IV push medication, administer flush at same rate as the IV push. Flush volume is determined by type of infusion therapy being given. For non-viscous solutions use: Peripheral IV = 5 mL Midline or Central Line = 10 mL/lumen For viscous solutions (i.e. blood components, parenteral nutrition, contrast media, or after obtaining blood sample) use: Peripheral IV = 10 mL Midline or Central Line = 20 mL/lumen Start: 05-28-2022 take 1 dose intraven ously twice daily 5-40 mL, IntraVENous, EVERY 12 HOURS SCHEDULED (2 times per day), First dose on Tue05/28/22 at 2100, Until Discontinued For Line Patency: Peripheral IV = 5 mL; Midline or Central Line = 10 mL/lumen. If following IV push medication, administer flush at same rate as the IV push. Flush volume is determined by type of infusion therapy being given. For non-viscous solutions use: Peripheral IV = 5 mL Midline or Central Line = 10 mL/lumen For viscous solutions (i.e. blood components, parenteral nutrition, contrast media, or after obtaining blood sample) use: Peripheral IV = 10 mL Midline or Central Line = 20 mL/lumen Start: 05-28-2022 sodium chlorid e flush 0.9 % injection 5-40 mL Start: 05-28-2022 End: 05-28-2022 0.9 % sodium chloride infusi on Start: 05-28-2022 IntraVENous, a t 5-250 mL/hr, PRN, if patient receiving piggyback infusions and maintenance fluids are not ordered OR KVO fluids to protect IV site / prevent frequent line interruptions/ long duration, Starting on Tue05/28/22 at 1626 For piggyback infusion, administer at same rate as piggyback for a total of 25 mL. Enter 25 mL into dose field and piggyback rate into rate field of order. If piggyback is infusing at a rate less than 100 mL/hr, enter 25 mL into dose field and 100 mL/hr into rate field of order. For KVO fluids, enter rate of 20 mL/hr or less into rate field of order. Start: 05-28-2022 take 5-40 mL intrave nously once as needed 5-40 mL, IntraVENous, PRN, Starting on Tue05/28/22 at 1626, Until Discontinued, Line Care, After every IV line use For Line Patency: Peripheral IV = 5 mL; Midline or Central Line = 10 mL/lumen. If following IV push medication, administer flush at same rate as the IV push. Flush volume is determined by type of infusion therapy being given. For non-viscous solutions use: Peripheral IV = 5 mL Midline or Central Line = 10 mL/lumen For viscous solutions (i.e. blood components, parenteral nutrition, contrast media, or after obtaining blood sample) use: Peripheral IV = 10 mL Midline or Central Line = 20 mL/lumen sodium zirconium cyclosilicate 5000 mg powder for oral suspension (1 source) Start: 05-28-2022 End: 05-28-2022 sodium zirconium cyclosilicate (LOKELMA) oral suspension 5 g spironolactone 25 mg oral tablet (2 sources) Aldosterone Antagonist Start: 06-01-2022 End: 06-03-2022 spironolactone (ALDACTONE) tablet 25 mg Problems Active Problems Problem Classification Problem Date Documented Date Episodic/Chronic Acute and unspecified renal failure (20 sources) Acute renal failure due to acute cortical necrosis; Translations: [Acute kidney failure with acute cortical necrosis] Onset: 3 Episodic Anxiety disorders (14 sources) Generalized anxiety disorder; Translations: [Generalized anxiety disorder] Onset: 3 Chronic Bacterial infection; unspecified site (1 source) Other staphylococcus as the cause of diseases classified elsewhere; Translations: [OTH STAPH CAUSE OF DZ CLASS ELSW] Onset: 3 Episodic Calculus of urinary tract (20 sources) Ureteric stone; Translations: [Calculus of ureter] Onset: 3 Episodic Chronic kidney disease (20 sources) Chronic kidney disease; Translations: [Chronic kidney disease, unspecified] Onset: 3 Chronic Chronic kidney disease (1 source) Chronic kidney disease; Translations: [Chronic kidney disease, stage 3a] Onset: 3 Conditions associated with dizziness or vertigo (1 source) Dizziness and giddiness; Translations: [DIZZINESS AND GIDDINESS] Onset: 3 Episodic Deficiency and other anemia (1 source) Anemia, unspecified Episodic Diabetes mellitus with complications (20 sources) Type 2 diabetes mellitus; Translations: [Type 2 diabetes mellitus with diabetic chronic kidney disease] Onset: 2 Chronic Diseases of white blood cells (4 sources) Band neutrophil count above reference range; Translations: [Bandemia] Onset: 3 Chronic Disorders of lipid metabolism (8 sources) Hyperlipidemia; Translations: [Hyperlipidemia, unspecified] Onset: 2 Chronic Essential hypertension (9 sources) Essential hypertension; Translations: [Essential (primary) hypertension] Onset: 3 Chronic Fever of unknown origin (1 source) Fever, unspecified; Translations: [FEVER UNSPECIFIED] Onset: 3 Episodic Fluid and electrolyte disorders (11 sources) Hyponatremia; Translations: [Hypo-osmolality and hyponatremia] Onset: 3 Episodic Genitourinary symptoms and ill-defined conditions (1 source) Personal history of other diseases of urinary system; Translations: [Personal history of other specified urinary system disorders] Onset: 3 07-19-2022 Episodic Hypertension with complications and secondary hypertension (5 sources) Hypertensive chronic kidney disease with stage 1 through stage 4 chronic kidney disease, or unspecified chronic kidney disease; Translations: [Hypertensive renal disease] Onset: 3 Chronic Mood disorders (14 sources) Recurrent major depressive episodes, moderate ; Translations: [Major depressive disorder, recurrent, moderate] Onset: 2 Chronic Mood disorders (2 sources) Mood disorders; Translations: [DEPRESSION UNSPECIFIED] Onset: 3 Nephritis; nephrosis; renal sclerosis (7 sources) Atrophy of right kidney; 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 kidney (terminal)] Onset: 3 Chronic Nutritional deficiencies (1 source) Vitamin D deficiency, unspecified; Translations: [VITAMIN D DEFICIENCY UNSPECIFIED] Onset: 2 Chronic Nutritional deficiencies (1 source) Deficiency of other specified B group vitamins Episodic Other aftercare (1 source) retirement (current) use of insulin; Translations: [OVEN WORKER CURRENT USE OF INSULIN] Onset: 3 Episodic Other aftercare (1 source) Other intermission coordinator (current) drug therapy; Translations: [OTH OVEN WORKER CURRENT DRUG THERAPY] Onset: 3 Episodic Other circulatory disease (2 sources) Orthostatic hypotension; Translations: [Orthostatic hypotension] Onset: 3 07-19-2022 Episodic Other circulatory disease (1 source) Orthostatic hypotension; Translations: [Orthostatic hypotension] Onset: 3 Episodic Other circulatory disease (1 source) Other hypotension Episodic Other connective tissue disease (1 source) Muscle weakness (generalized); Translations: [MUSCLE WEAKNESS GENERALIZED] Onset: 3 Episodic Other diseases of kidney and ureters (4 sources) Hyperparathyroidism due to renal insufficiency; Translations: [Secondary hyperparathyroidism of renal origin] Chronic Other diseases of kidney and ureters (1 source) Disorder of kidney and ureter, unspecified; Translations: [DISORDER KIDNEY AND URETER UNS] Onset: 3 Episodic Other hematologic conditions (1 source) History of anemia; Translations: [Personal history of diseases of the blood and blood-forming organs and certain disorders involving the immune mechanism] Onset: 3 07-19-2022 Episodic Other hereditary and degenerative nervous system conditions (2 sources) Multi-system degeneration of the autonomic nervous system; Translations: [Multi-system degeneration of the autonomic nervous system] Onset: 3 Chronic Other lower respiratory disease (4 sources) Hyperventilation; Translations: [Hyperventilation] 01-23-2023 Episodic Other lower respiratory disease (1 source) Shortness of breath; Translations: [Shortness of breath] Onset: 3 Episodic Other lower respiratory disease (1 source) Hyperventilation; Translations: [Hyperventilation] Onset: 3 Episodic Other nervous system disorders (1 source) Other abnormalities of gait and mobility; Translations: [OTHER ABNORMALITIES GAIT AND MOBILITY] Onset: 3 Episodic Other nervous system disorders (1 source) Unspecified abnormalities of gait and mobility; Translations: [UNS ABNORMALITIES GAIT AND MOBILITY] Onset: 3 Episodic Other nutritional; endocrine; and metabolic disorders (1 source) Body mass index (BMI) 45.0-49.9, adult; Translations: [BODY MASS INDEX BMI 45.0-49.9 ADULT] Onset: 3 Chronic Other nutritional; endocrine; and metabolic disorders (1 source) Morbid (severe) obesity due to excess calories; Translations: [MORBID SEVERE OBES D/T EXCESS FEI] Onset: 3 Chronic Other nutritional; endocrine; and metabolic disorders (4 sources) Body mass index 30+ - obesity; Translations: [Obesity, unspecified] Chronic Other nutritional; endocrine; and metabolic disorders (1 source) Obesity; Translations: [Obesity, unspecified] Onset: 3 07-19-2022 Chronic Other nutritional; endocrine; and metabolic disorders (1 source) Obesity, unspecified Chronic Other nutritional; endocrine; and metabolic disorders (1 source) Hyperuricemia without signs of inflammatory arthritis and tophaceous disease Episodic Peripheral and visceral atherosclerosis (1 source) Peripheral vascular disease, unspecified; Translations: [PERIPHERAL VASCULAR DISEASE, UNSPECIFIED] Onset: 7 Chronic Residual codes; unclassified (5 sources) Obstructive sleep apnea (adult) (pediatric); Translations: [OBSTRUCTIVE SLEEP APNEA] Onset: 3 Chronic Residual codes; unclassified (1 source) Acquired absence of other specified parts of digestive tract; Translations: [ACQ ABSENCE OTH PART DIGESTV TRACT] Onset: 3 Episodic Syncope (9 sources) Syncope and collapse; Translations: [Syncope] Onset: 3 Episodic Unclassified (2 sources) Unknown / UNK(Unknown) Onset: 7 Unclassified (4 sources) CONTACT W/AND (SUSP) EXPOS COVID-19; Translations: [CONTACT W/AND (SUSP) EXPOS COVID-19] Onset: 2 Unclassified (1 source) CHRN KIDNEY DISEASE STG 3 UNSP; Translations: [CHRN KIDNEY DISEASE STG 3 UNSP] Onset: 3 Unclassified (1 source) COUGH, UNSPECIFIED; Translations: [COUGH, UNSPECIFIED] Onset: 2 Urinary tract infections (15 sources) Pyelonephritis; Translations: [Tubulo-interstitial nephritis, not specified as acute or chronic] Onset: 3 Episodic Past or Other Problems Problem Classification Problem Date Documented Date Episodic/Chronic Malaise and fatigue (15 sources) Asthenia; Translations: [Other malaise] Onset: 06-01-2022 Episodic Other circulatory disease (4 sources) Other specified symptoms and signs involving the circulatory and respiratory systems; Translations: [OTH SYMPTOMS AND SIGNS INVOLVING THE CIRC AND RESP SYSTEMS] Onset: 09-17-2016 Episodic Other connective tissue disease (2 sources) Pain in right hand; Translations: [Pain in right hand] Onset: 01-09-2022 Episodic Other diseases of kidney and ureters (6 sources) Hydronephrosis; Translations: [Unspecified hydronephrosis] Onset: 05-28-2022 Episodic Other injuries and conditions due to external causes (2 sources) Other injury of unspecified body region, initial encounter; Translations: [Other injury of unspecified body region, initial encounter] Onset: 12-29-2021 Episodic Other injuries and conditions due to external causes (2 sources) Unspecified injury of right wrist, hand and finger(s), initial encounter; Translations: [Unspecified injury of right wrist, hand and finger(s), initial encounter] Onset: 12-25-2021 Episodic Other nervous system disorders (5 sources) Tremor; Translations: [Tremor, unspecified] Onset: 06-07-2022 Episodic Other nervous system disorders (2 sources) Other acute postprocedural pain; Translations: [Other acute postprocedural pain] Onset: 12-29-2021 Episodic Other upper respiratory disease (1 source) Nasal congestion; Translations: [NASAL CONGESTION] Onset: 04-07-2022 Episodic Residual codes; unclassified (1 source) Pain, unspecified; Translations: [PAIN UNSPECIFIED] Onset: 04-07-2022 Episodic Unclassified (1 source) Edema, unspecified; Translations: [EDEMA, UNSPECIFIED] Onset: 09-17-2016 Episodic Unclassified (1 source) CONTACT W/AND (SUSP) EXPOS COVID-19; Translations: [CONTACT W/AND (SUSP) EXPOS COVID-19] Onset: 03-31-2022 Results Test Name Value Interpretation Reference Range Facility Alanine aminotransferase [En zymatic activity/volume] in Serum or PlasmaOrdered By: Saturnino Kaur on 02-22-2023 ALT [Catalytic activity/Vol] 18 U/L 7-52 [facility] Albumin [Mass/volume] in Ser um or Plasma by Bromocresol green (BCG) dye binding methoOrdered By: Saturnino Kaur on 02-22-2023 Albumin BCG dye [Mass/Vol] 4.4 g/dL 3.5-5.7 [facility] Alkaline phosphatase [Enzyma tic activity/volume] in Serum or PlasmaOrdered By: Saturnino Kaur on 02-22-2023 ALP [Catalytic activity/Vol] 109 U/L 34-104 [facility] Amphetamine Screen Ql (U)Ord ered By: Saturnino Kaur on 02-22-2023 Amphetamines Ql (U) Negative Negative [facility] Aspartate aminotransferase [ Enzymatic activity/volume] in Serum or PlasmaOrdered By: Saturnino Kaur on 02-22-2023 AST [Catalytic activity/Vol] 19 U/L 13-39 [facility] Automated erythrocytes count in urine sediment (number/area)Ordered By: Saturnino Kaur on 02-22-2023 RBC Auto (Urine sed) [#/Area] 1-2 [HPF] 0-4 [facility] Automated leukocytes count i n urine sediment (number/area)Ordered By: Saturnino Kaur on 02-22-2023 WBC Auto (Urine sed) [#/Area] Innumerable [HPF] 0-4 [facility] Barbiturates [Presence] in U rine by Screen methodOrdered By: Saturnino Kaur on 02-22-2023 Barbiturates Screen Ql (U) Negative Negative [facility] Basophils Auto (Bld) [#/Vol] Ordered By: Saturnino Kaur on 02-22-2023 Basophils (Bld) [#/Vol] 0.1 10*3/uL 0.0-0.2 [facility] Basophils/100 WBC Auto (Bld) Ordered By: Saturnino Kaur on 02-22-2023 Basophils/100 WBC (Bld) 0.7 % . [facility] Benzodiazepines Screen Ql (U )Ordered By: Saturnino Kaur on 02-22-2023 Benzodiazepines Ql (U) Negative Negative [facility] Benzoylecgonine [Presence] i n Urine by Screen methodOrdered By: Saturnino Kaur on 02-22-2023 Benzoylecgonine Screen Ql (U) Negative Negative [facility] Beta Hydroxybuterateon 02-22 Beta Hydroxybuterate 0.30 mmol/L High 0.02-0.27 [facility] Comment on above: Result Comment: PERF ORMED BY: [place] [address] [employer] YOJANA GUADARRAMA M.D. Performed By: #### B HOB #### [address] Beta hydroxybutyrate [Moles/ volume] in Serum or PlasmaOrdered By: Saturnino Kaur on 02-22-2023 Beta hydroxybutyrate [Moles/Vol] 0.30 mmol/L 0.02-0.27 [facility] Bilirubin Test strip Ql (U)O rdered By: Saturnino Kaur on 02-22-2023 Bilirubin Ql (U) Negative Negative [facility] Bilirubin.total [Mass/volume ] in Serum or PlasmaOrdered By: Saturnino Kaur on 02-22-2023 Bilirubin [Mass/Vol] 0.6 mg/dL 0.3-1.[address] [facility] [address] abdomen pelvis wo conon 1 04-24-2022 CT abdomen pelvis wo con [facility] Main [place] [address] [place] [address] CT Scan Report Signed Patient: Steven Walden MR#: [id number] : 1960 Acct:[id number] Age/Sex: 63 / M ADM Date: 02/21/23 Loc: ER Room: Type: [facility] ER Attending Dr: Copies to: Saturnino Kaur Jr, MD Ordering Provider: Saturnino Kaur Jr, MD Date of Service: 02/22/23 CT/CT abdomen pelvis wo con: uti, hx stones CT ABDOMEN AND PELVIS WITHOUT INTRAVENOUS CONTRAST: CLINICAL HISTORY: Recent UTI. Panic attack. COMPARISON: None TECHNIQUE: Spiral images were obtained through the abdomen and pelvis without intravenous contrast. This CT exam was performed using one or more following dose reduction techniques: Automated exposure control, adjustment of the mA and/or kV according to patient size, or use of iterative reconstruction technique. FINDINGS: Lung Bases: [Calcified granulomas. Mild bibasilar scarring.] Organs:Suboptimal evaluation due to lack of IV contrast. Gallbladder has been removed. Splenic granulomas. Liver pancreas and adrenal glands appear unremarkable. There is asymmetrical atrophy of the right kidney when compared to the left with a nonobstructing calculus involving the right renal pelvis measuring 12 mm in greatest axial dimension. Abdominal aorta appears normal in caliber.[ GI: Stomach is grossly unremarkable. Small bowel appears nondilated. No acute colonic abnormality.[ Pelvis:[Urinary bladder is grossly unremarkable. Prostate gland is normal in size. Small right-sided fat filled hernia.] Peritoneum/Retroperi toneum:No free air, free fluid or lymphadenopathy.[ Abd wall/Bones:Abdominal wall demonstrates presumed postinjection changes. Osseous structures demonstrate degenerative change.[ CT/CT abdomen pelvis wo con IMPRESSION: No acute findings. Impression dictated by: Jose Raul Meyers Jr., DJustusOJustus02/22/2023 8:49 AM Dictation Location: [place] [address] Transcribed By: [place] 02/22/2349 Dictated By: Jose Raul Meyers Jr, DO 02/22/2345 Signed By: 02/22/2349 Normal [facility] Calcium [Mass/volume] in Ser um or PlasmaOrdered By: Saturnino Kaur on 02-22-2023 Calcium [Mass/Vol] 9.8 mg/dL 8.6-10.3 [facility] Cannabinoids [Presence] in U rine by Screen methodOrdered By: Saturnino Kaur on 02-22-2023 Cannabinoids Screen Ql (U) Negative Negative [facility] Comment on above: These are unconfirme d results and should not be used for legal purposes. Drug Cut-Off Concentration: AMPH 1000 ng/mL WILMER 200 ng/mL FELICIA 200 ng/mL COCM 300 ng/mL OP 300 ng/mL PCP 25 ng/mL THC 20 ng/mL Carbon dioxide, total [Moles /volume] in Serum or PlasmaOrdered By: Saturnino Kaur on 02-22-2023 CO2 [Moles/Vol] 14.9 mmol/L 21.0-31.0 [facility] Chloride [Moles/volume] in S russ or PlasmaOrdered By: Saturnino Kaur on 02-22-2023 Chloride [Moles/Vol] 106 mmol/L 98-107 [facility] Color Auto (U)Ordered By: Vish Kaur on 02-22-2023 Color (U) Yellow Yellow [facility] Complete Blood Count Auto Di ffon 02-22-2023 Basophils (Bld) [#/Vol] 0.1 10*3/uL Normal 0.0-0.2 [facility] Comment on above: Result Comment: PERF ORMED BY: [facility] [address] [place] [address] [employer] YOJANA GUADARRAMA M.D. Performed By: #### G LULS #### Point of Care testing , Basophils/100 WBC (Bld) 0.7 % Normal . [facility] Comment on above: Performed By: #### G TOSHA #### Point of Care testing , Eosinophils (Bld) [#/Vol] 0.2 10*3/uL Normal 0.0-0.45 [facility] Comment on above: Performed By: #### G TOSHA #### Point of Care testing , Eosinophils/100 WBC (Bld) 2.0 % Normal . [facility] Comment on above: Performed By: #### G CAITLINLS #### Point of Care testing , Erythrocyte distribution width (RBC) [Ratio] 14.7 % Normal 12.0-14.8 [facility] Comment on above: Performed By: #### G CAITLINLS #### Point of Care testing , Hematocrit (Bld) [Volume fraction] 38.4 % Low 38.8-50.0 [facility] Comment on above: Performed By: #### G TOSHA #### Point of Care testing , Hemoglobin (Bld) [Mass/Vol] 13.0 g/dL Normal 13.0-17.0 [facility] Comment on above: Performed By: #### G TOSHA #### Point of Care testing , Lymphocytes (Bld) [#/Vol] 3.7 10*3/uL Normal 1.00-4.8 [facility] Comment on above: Performed By: #### G TOSHA #### Point of Care testing , Lymphocytes/100 WBC (Bld) 31.4 % Normal . [facility] Comment on above: Performed By: #### G TOSHA #### Point of Care testing , MCH (RBC) [Entitic mass] 29.7 pg Normal 27.5-35.2 [facility] Comment on above: Performed By: #### G CAITLINLS #### Point of Care testing , MCV (RBC) [Entitic vol] 87.6 fL Normal 83.5-101 [facility] Comment on above: Performed By: #### G TOSHA #### Point of Care testing , Mean Corpuscular HGB Conc 33.9 g/dL Normal 32.5-35.6 [facility] Comment on above: Performed By: #### Carri GIVENS #### Point of Care testing , Monocytes (Bld) [#/Vol] 1.0 10*3/uL High 0.0-0.8 [facility] Comment on above: Performed By: #### Carri GIVENS #### Point of Care testing , Monocytes/100 WBC (Bld) 19.65 % Normal 0.00-20.00 [facility] Comment on above: Performed By: #### Carri TUCKERLS #### Point of Care testing , Monocytes/100 WBC (Bld) 8.5 % Normal . [facility] Comment on above: Performed By: #### Carri GIVENS #### Point of Care testing , Neutrophils (Bld) [#/Vol] 6.8 10*3/uL Normal 1.8-7.7 [facility] Comment on above: Performed By: #### Carri GIVENS #### Point of Care testing , Neutrophils/100 WBC (Bld) 57.4 % Normal . [facility] Comment on above: Performed By: #### Carri GIVENS #### Point of Care testing , NRBC% 0.1 /100{WBC} Normal 0-0.5 [facility] Comment on above: Performed By: #### Carri GIVENS #### Point of Care testing , Platelet mean volume (Bld) [Entitic vol] 8.6 fL Normal 6.6-10.1 [facility] Comment on above: Performed By: #### Carri GIVENS #### Point of Care testing , Platelets (Bld) [#/Vol] 333 10*3/uL Normal 150-450 [facility] Comment on above: Performed By: #### Carri GIVENS #### Point of Care testing , RBC (Bld) [#/Vol] 4.39 10*6/uL Normal 3.90-5.60 [facility] Comment on above: Performed By: #### Carri GIVENS #### Point of Care testing , WBC (Bld) [#/Vol] 11.8 10*3/uL High 4.1-10.5 [facility] Comment on above: Performed By: #### G TOSHA #### Point of Care testing , Comprehensive Metabolic Pane benoit 02-22-2023 Albumin [Mass/Vol] 4.4 g/dL Normal 3.5-5.7 [facility] Comment on above: Performed By: #### G CAITLINLS #### Point of Care testing , Albumin/Globulin [Mass ratio] 1.1 {ratio} Normal [facility] Comment on above: Performed By: #### G CAITLINLS #### Point of Care testing , ALP [Catalytic activity/Vol] 109 U/L High 34-104 [facility] Comment on above: Performed By: #### Carri GIVENS #### Point of Care testing , ALT [Catalytic activity/Vol] 18 U/L Normal 7-52 [facility] Comment on above: Performed By: #### Carri GIVENS #### Point of Care testing , Anion gap [Moles/Vol] 19.4 mmol/L High 6.0-15.0 [facility] Comment on above: Performed By: #### Carri GIVENS #### Point of Care testing , AST [Catalytic activity/Vol] 19 U/L Normal 13-39 [facility] Comment on above: Performed By: #### Carri GIVENS #### Point of Care testing , Bilirubin [Mass/Vol] 0.6 mg/dL Normal 0.3-1.0 [facility] Comment on above: Performed By: #### Carri GIVENS #### Point of Care testing , Calcium [Mass/Vol] 9.8 mg/dL Normal 8.6-10.3 [facility] Comment on above: Performed By: #### Carri GIVENS #### Point of Care testing , Chloride [Moles/Vol] 106 mmol/L Normal 98-107 [facility] Comment on above: Performed By: #### G CAITLINLS #### Point of Care testing , CO2 [Moles/Vol] 14.9 mmol/L Low 21.0-31.0 [facility] Comment on above: Performed By: #### G LULS #### Point of Care testing , Creatinine [Mass/Vol] 2.50 mg/dL High 0.70-1.30 [facility] Comment on above: Performed By: #### G LULS #### Point of Care testing , Creatinine Clr Calc Pharmacy 47.49 [facility] Comment on above: Result Comment: PERF ORMED BY: [facility] [place] [address] [employer] YOJANA GUADARRAMA M.D. Performed By: #### G LULS #### Point of Care testing , GFR/1.73 sq M.predicted MDRD (S/P/Bld) [Vol rate/Area] 28.516 mL/min/{1.73_m2} [facility] Comment on above: Performed By: #### G LULS #### Point of Care testing , Globulin (S) [Mass/Vol] 4.1 g/dL [facility] Comment on above: Performed By: #### G LULS #### Point of Care testing , Glucose [Mass/Vol] 196 mg/dL High 70-100 [facility] Comment on above: Result Comment: [facility] Glucose Reference Range is dependent on time and content of last meal. Glucose of more than 200 mg/dL in a nonstressed, ambulatory subject supports the diagnosis of Diabetes Mellitus. ADA recommended reference range Performed By: #### G LULS #### Point of Care testing , Potassium [Moles/Vol] 3.3 mmol/L Low 3.5-5.1 [facility] Comment on above: Performed By: #### G LULS #### Point of Care testing , Protein [Mass/Vol] 8.5 g/dL Normal 6.4-8.9 [facility] Comment on above: Performed By: #### G LULS #### Point of Care testing , Sodium [Moles/Vol] 137 mmol/L Normal 136-145 [facility] Comment on above: Performed By: #### G LULS #### Point of Care testing , Urea nitrogen [Mass/Vol] 46 mg/dL High 7-25 [facility] Comment on above: Performed By: #### G LULS #### Point of Care testing , Creatinine [Mass/volume] in Serum or PlasmaOrdered By: Saturnino Kaur on 02-22-2023 Creatinine [Mass/Vol] 2.50 mg/dL 0.70-1.30 [facility] Dipstick and Microscopicon 1 04-24-2022 Appearance (U) Cloudy Critically abnormal Clear [facility] Comment on above: Order Comment: Name Collection Type:: Voided Performed By: #### A DDONUAPLUS, URDS, CUU #### [facility] [address] [place] [address] Bacteria,Urine None Seen Normal None Seen [facility] Comment on above: Order Comment: Name Collection Type:: Voided Performed By: #### A DDONUAPLUS, URDS, CUU #### [facility] [address] [place] [address] [place] Bilirubin,Urine Negative Normal Negative [facility] Comment on above: Order Comment: Name Collection Type:: Voided Performed By: #### A DDONUAPLUS, URDS, CUU #### [facility] [address] [place] [address] [place] Color (U) Yellow Normal Yellow [facility] Comment on above: Order Comment: Name Collection Type:: Voided Performed By: #### A DDONUAPLUS, URDS, CUU #### [facility] [address] [place] [address] [place] Glucose Ql (U) Normal Normal Normal [facility] Comment on above: Order Comment: Name Collection Type:: Voided Performed By: #### A DDONUAPLUS, URDS, CUU #### [facility] [address] [place] [address] [place] Hyaline Casts,Urine 0-8 Normal 0-8 [facility] Comment on above: Order Comment: Name Collection Type:: Voided Result Comment: PERF ORMED BY: [place] [address] [employer] YOJANA GUADARRAMA M.D. Performed By: #### A DDONUAPLUS, URDS, CUU #### [address] Ketones Ql (U) Negative Normal Negative [facility] Comment on above: Order Comment: Name Collection Type:: Voided Performed By: #### A DDONUAPLUS, URDS, CUU #### [address] Leukocyte esterase Test strip Ql (U) 4+ High Negative [facility] Comment on above: Order Comment: Name Collection Type:: Voided Performed By: #### A DDONUAPLUS, URDS, CUU #### [address] Nitrite,Urine Negative Normal Negative [facility] Comment on above: Order Comment: Name Collection Type:: Voided Performed By: #### A DDONUAPLUS, URDS, CUU #### [address] Occult Blood,Urine 1+ High Negative [facility] Comment on above: Order Comment: Name Collection Type:: Voided Result Comment: PERF ORMED BY: [place] [address] [employer] YOJANA GUADARRAMA M.D. Performed By: #### A DDONUAPLUS, URDS, CUU #### [address] pH (U) 5.5 [pH] Normal 5.0-9.0 [facility] Comment on above: Order Comment: Name Collection Type:: Voided Performed By: #### A DDONUAPLUS, URDS, CUU #### [address] Protein (U) [Mass/Vol] 30 mg/dL High Negative [facility] Comment on above: Order Comment: Name Collection Type:: Voided Performed By: #### A DDONUAPLUS, URDS, CUU #### [address] RBC,Urine 1-2 Normal 0-4 [facility] Comment on above: Order Comment: Name Collection Type:: Voided Performed By: #### A DDONUAPLUS, URDS, CUU #### [address] Specificy Grabill,Urine 1.016 Normal 1.001-1.030 [facility] Comment on above: Order Comment: Name Collection Type:: Voided Performed By: #### A DDONUAPLUS, URDS, CUU #### [address] Squamous Epithelial Cell,Urine 3-4 High 0-2 [facility] Comment on above: Order Comment: Name Collection Type:: Voided Performed By: #### A DDONUAPLUS, URDS, CUU #### [address] Urobilinogen,Urine Normal Normal Normal [facility] Comment on above: Order Comment: Name Collection Type:: Voided Performed By: #### A DDONUAPLUS, URDS, CUU #### [place] [address] [place] WBC,Urine Innumerable High 0-4 [facility] Comment on above: Order Comment: Name Collection Type:: Voided Performed By: #### A DDONUAPLUS, URDS, CUU #### [place] [address] [place] Drug Screen,Urineon 02-23-20 Amphetamine Screen,Urine Negative Normal Negative [facility] Comment on above: Performed By: #### A DDONUAPLUS, URDS, CUU #### [place] [address] [place] Barbiturate Screen,Urine Negative Normal Negative [facility] Comment on above: Performed By: #### A DDONUAPLUS, URDS, CUU #### [address] Benzodiazepines Screen,Urine Negative Normal Negative [facility] Comment on above: Performed By: #### A DDONUAPLUS, URDS, CUU #### [place] [address] [place] Cannabinoid Screen,Urine Negative Normal Negative [facility] Comment on above: Result Comment: Thes e are unconfirmed results and should not be used for legal purposes. Drug Cut-Off Concentration: AMPH 1000 ng/mL WILMER 200 ng/mL FELICIA 200 ng/mL COCM 300 ng/mL OP 300 ng/mL PCP 25 ng/mL THC 20 ng/mL PERFORMED BY: [place] [address] [employer] YOJANA GUADARRAMA M.D. Performed By: #### A DDONUAPLUS, URDS, CUU #### [place] [address] [place] Cocaine Screen,Urine Negative Normal Negative [facility] Comment on above: Performed By: #### A DDONUAPLUS, URDS, CUU #### [place] [address] [place] Opiate Screen,Urine Negative Normal Negative [facility] Comment on above: Performed By: #### A DDONUAPLUS, URDS, CUU #### [place] [address] [place] Phencyclidine Screen,Urine Negative Normal Negative [facility] Comment on above: Performed By: #### A DDONUAPLUS, URDS, CUU #### [address] ECG 12 lead ECGon 02-22-2023 ECG 12 lead ECG [facility] [place] [address] Electrocardiograph Report Signed Patient: Steven Walden MR#: [id number] : 1960 Acct:[id number] Age/Sex: 63 / M ADM Date: 02/21/23 Loc: ER Room: Type: [facility] ER Attending Dr: Ordering Provider: Saturnino Kaur Jr, MD Date of Service: 02/22/23 ECG/ECG 12 lead ECG: Psychiatric Symptoms Copies to: Test Reason : Blood Pressure : / mmHG Vent. Rate : 076 BPM Atrial Rate : 076 BPM P-R Int : 174 ms QRS Dur : 102 ms QT Int : 410 ms P-R-T Axes : 045 002 -07 degrees QTc Int : 461 ms Normal sinus rhythm Normal ECG When compared with ECG of 09-FEB-2023 08:35, Nonspecific ST abnormality is no longer present Confirmed by SATURNINO KAUR MD ([id number]) on 02/22/2023 6:41:07 AM Referred By: Electronically Signed By:SATURNINO KAUR MD Transcribed By: MUS Signed By Saturnino Kaur Jr, MD 0641 Normal [facility] Eosinophils Auto (Bld) [#/Vo l]Ordered By: Saturnino Kaur on 02-22-2023 Eosinophils (Bld) [#/Vol] 0.2 10*3/uL 0.0-0.45 [facility] Eosinophils/100 WBC Auto (Bl d)Ordered By: Saturnino Kaur on 02-22-2023 Eosinophils/100 WBC (Bld) 2.0 % . [facility] Erythrocyte distribution wid th Auto (RBC) [Ratio]Ordered By: Saturnino Kaur on 02-22-2023 Erythrocyte distribution width (RBC) [Ratio] 14.7 % 12.0-14.8 [facility] Ethanol [Mass/volume] in Ser um or PlasmaOrdered By: Saturnino Kaur on 02-22-2023 Ethanol [Mass/Vol] mg/dL [facility] Ethanol [Mass/Vol] TNP [facility] Comment on above: Test not performed Ethyl Alcohol Profileon 02-09 Ethanol [Mass/Vol] mg/dL Normal [facility] Comment on above: Performed By: #### G LULS #### Point of Care testing , Percent Ethanol Not performed Normal [facility] Comment on above: Result Comment: PERF ORMED BY: [facility] [address] [place] [address] [employer] YOJANA GUADARRAMA M.D. Performed By: #### G LULS #### Point of Care testing , Globulin Calc (S) [Mass/Vol] Ordered By: Saturnino Kaur on 02-22-2023 Globulin (S) [Mass/Vol] 4.1 g/dL [facility] Glucose [Mass/volume] in Ser um or PlasmaOrdered By: Saturnino Kaur on 02-22-2023 Glucose [Mass/Vol] 196 mg/dL 70-100 [facility] Comment on above: ADA recommended refe rence rangeRandom Glucose Reference Range is dependent on time and content of last meal. Glucose of more than 200 mg/dL in a nonstressed, ambulatory subject supports the diagnosis of Diabetes Mellitus. Hematocrit Auto (Bld) [Volum e fraction]Ordered By: Saturnino Kaur on 02-22-2023 Hematocrit (Bld) [Volume fraction] 38.4 % 38.8-50.0 [facility] Hemoglobin [Mass/volume] in BloodOrdered By: Saturnino Kaur on 02-22-2023 Hemoglobin (Bld) [Mass/Vol] 13.0 g/dL 13.0-17.0 [facility] Ketones Auto test strip (U) [Mass/Vol]Ordered By: Saturnino Kaur on 02-22-2023 Ketones (U) [Mass/Vol] Negative Negative [facility] - UrinalysisOrder ed By: Saturnino Kaur on 02-22-2023 Hyaline casts LM Ql (Urine sed) 0-8 [LPF] 0-8 [facility] Leukocytes [#/volume] correc heather for nucleated erythrocytes in Blood by Automated counOrdered By: Saturnino Kaur on 02-22-2023 WBC corrected for nucl RBC Auto (Bld) [#/Vol] 11.8 10*3/uL 4.1-10.5 [facility] Lymphocytes Auto (Bld) [#/Vo l]Ordered By: Saturnino aKur on 02-22-2023 Lymphocytes (Bld) [#/Vol] 3.7 10*3/uL 1.00-4.8 [facility] Lymphocytes/100 WBC Auto (Bl d)Ordered By: Saturnino Kaur on 02-22-2023 Lymphocytes/100 WBC (Bld) 31.4 % . [facility] MCH Auto (RBC) [Entitic mass ]Ordered By: Saturnino Kaur on 02-22-2023 MCH (RBC) [Entitic mass] 29.7 pg 27.5-35.2 [facility] MCHC Auto (RBC) [Mass/Vol]Or dered By: Saturnino Kaur on 02-22-2023 MCHC (RBC) [Mass/Vol] 33.9 g/dL 32.5-35.6 [facility] MCV Auto (RBC) [Entitic vol] Ordered By: Saturnino Kaur on 02-22-2023 MCV (RBC) [Entitic vol] 87.6 fL 83.5-101 [facility] Monocyte distribution width [Entitic volume] in Blood by AutomatedOrdered By: Saturnino Kaur on 02-22-2023 Monocyte distribution width Auto (Bld) [Entitic vol] 19.65 % 0.00-20.00 [facility] Monocytes Auto (Bld) [#/Vol] Ordered By: Saturnino Kaur on 02-22-2023 Monocytes (Bld) [#/Vol] 1.0 10*3/uL 0.0-0.8 [facility] Monocytes/100 WBC Auto (Bld) Ordered By: Saturnino Kaur on 02-22-2023 Monocytes/100 WBC (Bld) 8.5 % . [facility] Neutrophils Auto (Bld) [#/Vo l]Ordered By: Saturnino Kaur on 02-22-2023 Neutrophils (Bld) [#/Vol] 6.8 10*3/uL 1.8-7.7 [facility] Neutrophils/100 WBC Auto (Bl d)Ordered By: Saturnino Kaur on 02-22-2023 Neutrophils/100 WBC (Bld) 57.4 % . [facility] Nitrite Test strip Ql (U)Ord ered By: Saturnino Kaur on 02-22-2023 Nitrite Ql (U) Negative Negative [facility] No Panel InformationOrdered By: Saturnino Kaur on 02-22-2023 Estimated GFR (CKD-EPI) 28.516 mL/Min [facility] Creatinine Clearance (Chem 47.49 [facility] Nucleated erythrocytes [Pres ence] in Blood by Automated countOrdered By: Saturnino Kaur on 02-22-2023 Nucleated RBC Auto Ql (Bld) 0.1 /100{WBC} 0-0.5 [facility] Opiates [Presence] in Urine by Screen methodOrdered By: Saturnino Kaur on 02-22-2023 Opiates Screen Ql (U) Negative Negative [facility] Phencyclidine Screen Ql (U)O rdered By: Saturnnio Kaur on 02-22-2023 Phencyclidine Ql (U) Negative Negative [facility] Platelet mean volume Auto (B ld) [Entitic vol]Ordered By: Saturnino Kaur on 02-22-2023 Platelet mean volume (Bld) [Entitic vol] 8.6 fL 6.6-10.1 [facility] Platelets Auto (Bld) [#/Vol] Ordered By: Saturnino Kaur on 02-22-2023 Platelets (Bld) [#/Vol] 333 10*3/uL 150-450 [facility] Potassium [Moles/volume] in Serum or PlasmaOrdered By: Saturnino Kaur on 02-22-2023 Potassium [Moles/Vol] 3.3 mmol/L 3.5-5.1 [facility] Protein Auto test strip (U) [Mass/Vol]Ordered By: Saturnino Kaur on 02-22-2023 Protein (U) [Mass/Vol] 30 mg/dL Negative [facility] Protein [Mass/volume] in Ser um or PlasmaOrdered By: Saturnino Kaur on 02-22-2023 Protein [Mass/Vol] 8.5 g/dL 6.4-8.9 [facility] RBC Auto (Bld) [#/Vol]Ordere d By: Saturnino Kaur on 02-22-2023 RBC (Bld) [#/Vol] 4.39 10*6/uL 3.90-5.60 [facility] Serum or plasma albumin/glob ulin mass ratioOrdered By: Saturnino Kaur on 02-22-2023 Albumin/Globulin [Mass ratio] 1.1 {ratio} [facility] Serum or plasma anion gap de terminationOrdered By: Saturnino Kaur on 02-22-2023 Anion gap [Moles/Vol] 19.4 mmol/L 6.0-15.0 [facility] Sodium [Moles/volume] in Ser um or PlasmaOrdered By: Saturnino Kaur on 02-22-2023 Sodium [Moles/Vol] 137 mmol/L 136-145 [facility] Specific gravity Auto test s trip (U) [Rel density]Ordered By: Saturnino Kaur on 02-22-2023 Specific gravity (U) [Rel density] 1.016 1.001-1.030 [facility] Squamous epithelial cells de tection in urine sediment by light microscopyOrdered By: Saturnino Kaur on 02-22-2023 Epithelial cells.squamous LM Ql (Urine sed) 3-4 [HPF] 0-2 [facility] Troponin I High Sensitivityo n 02-22-2023 Troponin I High Sensitivity 4.4 pg/mL Normal 0.0-20.0 [facility] Comment on above: Result Comment: PERF ORMED BY: [place] [address] [employer] YOJANA GUADARRAMA M.D. Performed By: #### H S TROP #### [facility] [address] [place] [address] Troponin I.cardiac [Mass/vol ume] in Serum or Plasma by Detection limit <= 0.01 ng/Ordered By: Saturnino Kaur on 02-22-2023 Troponin I.cardiac DL <= 0.01 ng/mL [Mass/Vol] 4.4 pg/mL 0.0-20.0 [facility] Urea nitrogen [Mass/volume] in Serum or PlasmaOrdered By: Saturnino Kaur on 02-22-2023 Urea nitrogen [Mass/Vol] 46 mg/dL 7-25 [facility] Urine Cultureon 02-22-2023 Bacteria identified Cx Nom (U) ORGANISM: Nida albicans (O:CANALB) [place] Count <10,000 PERFORMED BY: [place] [address] [employer] YOJANA GUADARRAMA M.D. Normal [facility] Comment on above: Performed By: #### A DDONUAPLUS, URDS, CUU #### [facility] [address] [place] [address] Urine bacteria detection by automated methodOrdered By: Saturnino Kaur on 02-22-2023 Bacteria Auto Ql (U) None seen None Seen [facility] Urine clarity by refractomet ry automatedOrdered By: Saturnino Kaur on 02-22-2023 Clarity Refractometry automated (U) Cloudy Clear [facility] Urine glucose measurement by automated test strip (mass/volume)Ordered By: Saturnino Kaur on 02-22-2023 Glucose Auto test strip (U) [Mass/Vol] Normal mg/dL Normal [facility] Urine hemoglobin detection b y automated test stripOrdered By: Saturnino Kaur on 02-22-2023 Hemoglobin Auto test strip Ql (U) 1+ Negative [facility] Urine leukocyte esterase det ection by automated test stripOrdered By: Saturnino Kaur on 02-22-2023 Leukocyte esterase Auto test strip Ql (U) 4+ Negative [facility] Urobilinogen Auto test strip (U) [Mass/Vol]Ordered By: Saturnino Kaur on 02-22-2023 Urobilinogen (U) [Mass/Vol] Normal mg/dL Normal [facility] WBC Auto (Bld) [#/Vol]Ordere d By: Saturnino Kaur on 02-22-2023 WBC (Bld) [#/Vol] 11.8 10*3/uL 4.1-10.5 [facility] pH Auto test strip (U)Ordere d By: Saturnino Kaur on 02-22-2023 pH (U) 5.5 [pH] 5.0-9.0 [facility] Glucose Glucometer (BldC) [M ass/Vol]Ordered By: Arash Henry on 02-13-2023 Glucose [Mass/Vol] 224 mg/dL [facility] Comment on above: Random Glucose Refer ence Range is dependent on time and content of last meal. Glucose of more than 200 mg/dL in a nonstressed, ambulatory subject supports the diagnosis of Diabetes Mellitus. Glucose Poct Glucometerson 1 04-15-2022 Glucose [Mass/Vol] 224 mg/dL Normal [facility] Comment on above: Result Comment: Randall om Glucose Reference Range is dependent on time and content of last meal. Glucose of more than 200 mg/dL in a nonstressed, ambulatory subject supports the diagnosis of Diabetes Mellitus. PERFORMED BY: [facility] [address] [employer] YOJANA GUADARRAMA M.D. Performed By: #### G TOSHA #### Point of Care testing , Glucose Poct Glucometerson 1 04-14-2022 Glucose [Mass/Vol] 240 mg/dL Normal [facility] Comment on above: Result Comment: Randall om Glucose Reference Range is dependent on time and content of last meal. Glucose of more than 200 mg/dL in a nonstressed, ambulatory subject supports the diagnosis of Diabetes Mellitus. PERFORMED BY: [place] [address] [employer] YOJANA GUADARRAMA M.D. Performed By: #### G LULS #### Point of Care testing , Glucose Poct Glucometerson 1 04-13-2022 Glucose [Mass/Vol] 195 mg/dL Normal [facility] Comment on above: Result Comment: Randall om Glucose Reference Range is dependent on time and content of last meal. Glucose of more than 200 mg/dL in a nonstressed, ambulatory subject supports the diagnosis of Diabetes Mellitus. PERFORMED BY: [place] [address] [employer] YOJANA GUADARRAMA M.D. Performed By: #### G LULS #### Point of Care testing , Glucose Poct Glucometerson 1 04-12-2022 Glucose [Mass/Vol] 219 mg/dL Normal [facility] Comment on above: Result Comment: Randall om Glucose Reference Range is dependent on time and content of last meal. Glucose of more than 200 mg/dL in a nonstressed, ambulatory subject supports the diagnosis of Diabetes Mellitus. PERFORMED BY: [place] [address] [employer] YOJANA GUADARRAMA M.D. Performed By: #### C BC #### [facility] [address] [place] [address] [facility] Basic Metabolic Panelon 11-0 Anion gap [Moles/Vol] 13.2 mmol/L Normal 6.0-15.0 [facility] Comment on above: Performed By: #### B MP #### [address] [address] [facility] Calcium [Mass/Vol] 9.1 mg/dL Normal 8.6-10.3 [facility] Comment on above: Performed By: #### B MP #### [facility] [address] [place] [address] [place] Chloride [Moles/Vol] 108 mmol/L High 98-107 [facility] Comment on above: Performed By: #### B MP #### [facility] [address] CO2 [Moles/Vol] 22.5 mmol/L Normal 21.0-31.0 [facility] Comment on above: Performed By: #### B MP #### [facility] [address] Creatinine [Mass/Vol] 2.68 mg/dL High 0.70-1.30 [facility] Comment on above: Performed By: #### B MP #### [address] Creatinine Clr Calc Pharmacy 44.00 [facility] Comment on above: Result Comment: PERF ORMED BY: [place] [address] [employer] YOJANA GUADARRAMA M.D. Performed By: #### B MP #### [address] GFR/1.73 sq M.predicted MDRD (S/P/Bld) [Vol rate/Area] 26.234 mL/min/{1.73_m2} [facility] Comment on above: Performed By: #### B MP #### [facility] [address] Glucose [Mass/Vol] 162 mg/dL High 70-100 [facility] Comment on above: Result Comment: Randall Glucose Reference Range is dependent on time and content of last meal. Glucose of more than 200 mg/dL in a nonstressed, ambulatory subject supports the diagnosis of Diabetes Mellitus. ADA recommended reference range Performed By: #### B MP #### [facility] [address] Potassium [Moles/Vol] 3.7 mmol/L Normal 3.5-5.1 [facility] Comment on above: Performed By: #### B MP #### [facility] [address] [place] [address] [place] Sodium [Moles/Vol] 140 mmol/L Normal 136-145 [facility] Comment on above: Performed By: #### B MP #### [facility] [address] [place] [id number] [place] Urea nitrogen [Mass/Vol] 39 mg/dL High 7-25 [facility] Comment on above: Performed By: #### B MP #### [facility] [address] Calcium [Mass/volume] in Ser um or PlasmaOrdered By: Arash Henry on 02-09-2023 Calcium [Mass/Vol] 9.1 mg/dL 8.6-10.3 [facility] Carbon dioxide, total [Moles /volume] in Serum or PlasmaOrdered By: Arash Henry on 02-09-2023 CO2 [Moles/Vol] 22.5 mmol/L 21.0-31.0 [facility] Chloride [Moles/volume] in S russ or PlasmaOrdered By: Arash Henry on 02-09-2023 Chloride [Moles/Vol] 108 mmol/L 98-107 [facility] Creatinine [Mass/volume] in Serum or PlasmaOrdered By: Arash Henry on 02-09-2023 Creatinine [Mass/Vol] 2.68 mg/dL 0.70-1.30 [facility] ECG 12 lead ECGon 02-09-2023 ECG 12 lead ECG [facility] Main [place] [address] [place] [address] Electrocardiograph Report Signed Patient: Steven Walden MR#: [id number] : 1960 Acct:[id number] Age/Sex: 63 / M ADM Date: 02/07/23 Loc: Room: [address] [place] [address] Type: ADM IN Attending Dr: Arash Henry MD Ordering Provider: Arash Henry MD Date of Service: 02/09/23/ ECG/ECG 12 lead ECG: anti psychotic treatment Copies to: Test Reason : Blood Pressure : / mmHG Vent. Rate : 073 BPM Atrial Rate : 073 BPM P-R Int : 172 ms QRS Dur : 108 ms QT Int : 422 ms P-R-T Axes : -04 001 000 degrees QTc Int : 464 ms Normal sinus rhythm Nonspecific ST abnormality Borderline ECG When compared with ECG of 23-JAN-2023 17:45, No significant change was found Confirmed by GIORGI ROMERO [facility], LORY ([id number]) on 02/09/2023 3:26:40 PM Referred By: Electronically Signed By:LORY RAND MD [facility] Transcribed By: MUS Signed By Lory Rand MD, [facility] 02/09/23 1526 Normal [facility] Glucose [Mass/volume] in Ser um or PlasmaOrdered By: Arash Henry on 02-09-2023 Glucose [Mass/Vol] 162 mg/dL 70-100 [facility] Comment on above: ADA recommended refe rence rangeRandom Glucose Reference Range is dependent on time and content of last meal. Glucose of more than 200 mg/dL in a nonstressed, ambulatory subject supports the diagnosis of Diabetes Mellitus. No Panel InformationOrdered By: Arash Henry on 02-09-2023 Estimated GFR (CKD-EPI) 26.234 mL/Min [facility] Creatinine Clearance (Chem 44.00 [facility] Potassium [Moles/volume] in Serum or PlasmaOrdered By: Arash Henry on 02-09-2023 Potassium [Moles/Vol] 3.7 mmol/L 3.5-5.1 [facility] Serum or plasma anion gap de terminationOrdered By: Arash Henry on 02-09-2023 Anion gap [Moles/Vol] 13.2 mmol/L 6.0-15.0 [facility] Sodium [Moles/volume] in Ser um or PlasmaOrdered By: Arash Henry on 02-09-2023 Sodium [Moles/Vol] 140 mmol/L 136-145 [facility] Urea nitrogen [Mass/volume] in Serum or PlasmaOrdered By: Arash Henry on 02-09-2023 Urea nitrogen [Mass/Vol] 39 mg/dL 7-25 [facility] Basophils Auto (Bld) [#/Vol] Ordered By: Arash Henry on 02-08-2023 Basophils (Bld) [#/Vol] 0.1 10*3/uL 0.0-0.2 [facility] Basophils/100 WBC Auto (Bld) Ordered By: Arash Henry on 02-08-2023 Basophils/100 WBC (Bld) 0.8 % . [facility] Complete Blood Count Auto Di ffon 02-08-2023 Basophils (Bld) [#/Vol] 0.1 10*3/uL Normal 0.0-0.2 [facility] Comment on above: Result Comment: PERF ORMED BY: [place] [address] [employer] YOJANA GUADARRAMA M.D. Performed By: #### C BC #### [address] Basophils/100 WBC (Bld) 0.8 % Normal . [facility] Comment on above: Performed By: #### C BC #### [place] [address] [place] Eosinophils (Bld) [#/Vol] 0.4 10*3/uL Normal 0.0-0.45 [facility] Comment on above: Performed By: #### C BC #### [place] [address] [place] Eosinophils/100 WBC (Bld) 3.8 % Normal . [facility] Comment on above: Performed By: #### C BC #### [address] Erythrocyte distribution width (RBC) [Ratio] 14.4 % Normal 12.0-14.8 [facility] Comment on above: Performed By: #### C BC #### [address] Hematocrit (Bld) [Volume fraction] 37.5 % Low 38.8-50.0 [facility] Comment on above: Performed By: #### C BC #### [facility] [address] Hemoglobin (Bld) [Mass/Vol] 12.9 g/dL Low 13.0-17.0 [facility] Comment on above: Performed By: #### C BC #### [address] Lymphocytes (Bld) [#/Vol] 2.7 10*3/uL Normal 1.00-4.8 [facility] Comment on above: Performed By: #### C BC #### [address] Lymphocytes/100 WBC (Bld) 28.9 % Normal . [facility] Comment on above: Performed By: #### C BC #### [address] MCH (RBC) [Entitic mass] 30.1 pg Normal 27.5-35.2 [facility] Comment on above: Performed By: #### C BC #### [address] MCV (RBC) [Entitic vol] 87.2 fL Normal 83.5-101 [facility] Comment on above: Performed By: #### C BC #### [address] Mean Corpuscular HGB Conc 34.5 g/dL Normal 32.5-35.6 [facility] Comment on above: Performed By: #### C BC #### [place] [address] [place] Monocytes (Bld) [#/Vol] 0.7 10*3/uL Normal 0.0-0.8 [facility] Comment on above: Performed By: #### C BC #### [address] Monocytes/100 WBC (Bld) 7.3 % Normal . [facility] Comment on above: Performed By: #### C BC #### [place] [address] Neutrophils (Bld) [#/Vol] 5.5 10*3/uL Normal 1.8-7.7 [facility] Comment on above: Performed By: #### C BC #### [address] Neutrophils/100 WBC (Bld) 59.2 % Normal . [facility] Comment on above: Performed By: #### C BC #### [address] NRBC% 0.1 /100{WBC} Normal 0-0.5 [facility] Comment on above: Performed By: #### C BC #### [address] Platelet mean volume (Bld) [Entitic vol] 8.1 fL Normal 6.6-10.1 [facility] Comment on above: Performed By: #### C BC #### [address] Platelets (Bld) [#/Vol] 302 10*3/uL Normal 150-450 [facility] Comment on above: Performed By: #### C BC #### [address] RBC (Bld) [#/Vol] 4.30 10*6/uL Normal 3.90-5.60 [facility] Comment on above: Performed By: #### C BC #### [address] WBC (Bld) [#/Vol] 9.3 10*3/uL Normal 4.1-10.5 [facility] Comment on above: Performed By: #### C BC #### [address] Eosinophils Auto (Bld) [#/Vo l]Ordered By: Arash Henry on 02-08-2023 Eosinophils (Bld) [#/Vol] 0.4 10*3/uL 0.0-0.45 [facility] Eosinophils/100 WBC Auto (Bl d)Ordered By: Arash Henry on 02-08-2023 Eosinophils/100 WBC (Bld) 3.8 % . [facility] Erythrocyte distribution wid th Auto (RBC) [Ratio]Ordered By: Arash Henry on 02-08-2023 Erythrocyte distribution width (RBC) [Ratio] 14.4 % 12.0-14.8 [facility] Hematocrit Auto (Bld) [Volum e fraction]Ordered By: Arash Henry on 02-08-2023 Hematocrit (Bld) [Volume fraction] 37.5 % 38.8-50.0 [facility] Hemoglobin [Mass/volume] in BloodOrdered By: Arash Henry on 02-08-2023 Hemoglobin (Bld) [Mass/Vol] 12.9 g/dL 13.0-17.0 [facility] Leukocytes [#/volume] correc heather for nucleated erythrocytes in Blood by Automated counOrdered By: Arash Hnery on 02-08-2023 WBC corrected for nucl RBC Auto (Bld) [#/Vol] 9.3 10*3/uL 4.1-10.5 [facility] Lymphocytes Auto (Bld) [#/Vo l]Ordered By: Arash Henry on 02-08-2023 Lymphocytes (Bld) [#/Vol] 2.7 10*3/uL 1.00-4.8 [facility] Lymphocytes/100 WBC Auto (Bl d)Ordered By: Arash Henry on 02-08-2023 Lymphocytes/100 WBC (Bld) 28.9 % . [facility] MCH Auto (RBC) [Entitic mass ]Ordered By: Arash Henry on 02-08-2023 MCH (RBC) [Entitic mass] 30.1 pg 27.5-35.2 [facility] MCHC Auto (RBC) [Mass/Vol]Or dered By: Arash Henry on 02-08-2023 MCHC (RBC) [Mass/Vol] 34.5 g/dL 32.5-35.6 [facility] MCV Auto (RBC) [Entitic vol] Ordered By: Arash Henry on 02-08-2023 MCV (RBC) [Entitic vol] 87.2 fL 83.5-101 [facility] Monocytes Auto (Bld) [#/Vol] Ordered By: Arash Henry on 02-08-2023 Monocytes (Bld) [#/Vol] 0.7 10*3/uL 0.0-0.8 [facility] Monocytes/100 WBC Auto (Bld) Ordered By: Arash Henry on 02-08-2023 Monocytes/100 WBC (Bld) 7.3 % . [facility] Neutrophils Auto (Bld) [#/Vo l]Ordered By: Arash Henry on 02-08-2023 Neutrophils (Bld) [#/Vol] 5.5 10*3/uL 1.8-7.7 [facility] Neutrophils/100 WBC Auto (Bl d)Ordered By: Arash Henry on 02-08-2023 Neutrophils/100 WBC (Bld) 59.2 % . [facility] Nucleated erythrocytes [Pres ence] in Blood by Automated countOrdered By: Arash Henry on 02-08-2023 Nucleated RBC Auto Ql (Bld) 0.1 /100{WBC} 0-0.5 [facility] Platelet mean volume Auto (B ld) [Entitic vol]Ordered By: Arash Henry on 02-08-2023 Platelet mean volume (Bld) [Entitic vol] 8.1 fL 6.6-10.1 [facility] Platelets Auto (Bld) [#/Vol] Ordered By: Arash Henry on 02-08-2023 Platelets (Bld) [#/Vol] 302 10*3/uL 150-450 [facility] RBC Auto (Bld) [#/Vol]Ordere d By: Arash Henry on 02-08-2023 RBC (Bld) [#/Vol] 4.30 10*6/uL 3.90-5.60 [facility] WBC Auto (Bld) [#/Vol]Ordere d By: Arash Henry on 02-08-2023 WBC (Bld) [#/Vol] 9.3 10*3/uL 4.1-10.5 [facility] Alanine aminotransferase [En zymatic activity/volume] in Serum or PlasmaOrdered By: Ewa Bullimore on 02-07-2023 ALT [Catalytic activity/Vol] 10 U/L 7-52 [facility] Albumin [Mass/volume] in Ser um or Plasma by Bromocresol green (BCG) dye binding methoOrdered By: Ewa Bullimore on 02-07-2023 Albumin BCG dye [Mass/Vol] 4.3 g/dL 3.5-5.7 [facility] Alkaline phosphatase [Enzyma tic activity/volume] in Serum or PlasmaOrdered By: Ewa Bullimore on 02-07-2023 ALP [Catalytic activity/Vol] 123 U/L 34-104 [facility] Amphetamine Screen Ql (U)Ord ered By: Ewa Bullimore on 02-07-2023 Amphetamines Ql (U) Negative Negative [facility] Aspartate aminotransferase [ Enzymatic activity/volume] in Serum or PlasmaOrdered By: Ewa Stevenimore on 02-07-2023 AST [Catalytic activity/Vol] 15 U/L 13-39 [facility] Automated erythrocytes count in urine sediment (number/area)Ordered By: Ewa Stevenimore on 02-07-2023 RBC Auto (Urine sed) [#/Area] 0-1 [HPF] 0-4 [facility] Automated leukocytes count i n urine sediment (number/area)Ordered By: Ewa Stevenimore on 02-07-2023 WBC Auto (Urine sed) [#/Area] Innumerable [HPF] 0-4 [facility] Barbiturates [Presence] in U rine by Screen methodOrdered By: Ewa Stevenimore on 02-07-2023 Barbiturates Screen Ql (U) Negative Negative [facility] Basophils Auto (Bld) [#/Vol] Ordered By: Ewa Stevenimore on 02-07-2023 Basophils (Bld) [#/Vol] 0.1 10*3/uL 0.0-0.2 [facility] Basophils/100 WBC Auto (Bld) Ordered By: Ewa Stevenimore on 02-07-2023 Basophils/100 WBC (Bld) 0.9 % . [facility] Benzodiazepines Screen Ql (U )Ordered By: Ewa Bullimore on 02-07-2023 Benzodiazepines Ql (U) Negative Negative [facility] Benzoylecgonine [Presence] i n Urine by Screen methodOrdered By: Ewa Bullimore on 02-07-2023 Benzoylecgonine Screen Ql (U) Negative Negative [facility] Bilirubin Test strip Ql (U)O rdered By: Eaw Kim on 02-07-2023 Bilirubin Ql (U) Negative Negative [facility] Bilirubin.total [Mass/volume ] in Serum or PlasmaOrdered By: Ewa Bullmarito on 02-07-2023 Bilirubin [Mass/Vol] 0.7 mg/dL 0.3-1.0 [facility] Calcium [Mass/volume] in Ser um or PlasmaOrdered By: Ewa Bullimore on 02-07-2023 Calcium [Mass/Vol] 9.8 mg/dL 8.6-10.3 [facility] Cannabinoids [Presence] in U rine by Screen methodOrdered By: Ewa Kim on 02-07-2023 Cannabinoids Screen Ql (U) Negative Negative [facility] Comment on above: These are unconfirme d results and should not be used for legal purposes. Drug Cut-Off Concentration: AMPH 1000 ng/mL WILMER 200 ng/mL FELICIA 200 ng/mL COCM 300 ng/mL OP 300 ng/mL PCP 25 ng/mL THC 20 ng/mL Carbon dioxide, total [Moles /volume] in Serum or PlasmaOrdered By: Ewa Kim on 02-07-2023 CO2 [Moles/Vol] 18.4 mmol/L 21.0-31.0 [facility] Chloride [Moles/volume] in S russ or PlasmaOrdered By: Ewa Bullimore on 02-07-2023 Chloride [Moles/Vol] 102 mmol/L 98-107 [facility] Cholesterol [Mass/volume] in Serum or PlasmaOrdered By: Arash Henry on 02-07-2023 Cholesterol [Mass/Vol] 142 mg/dL 140-200 [facility] Comment on above: Chol less than 200 m g/dl low riskChol 201-239 mg/dl borderline riskChol 240 mg/dl and greater high risk Cholesterol in LDL Calc [Mas s/Vol]Ordered By: Arash Carl on 02-07-2023 Cholesterol in LDL [Mass/Vol] 58 mg/dL 0-100 [facility] Comment on above: LDL ATP III CLASSIFI CATIONLDL less than 100 mg/dL OptimalLDL 100-129 mg/dL Near or above optimalLDL 130-159 mg/dL Borderline highLDL 160-189 mg/dL HighLDL greater than 189 mg/dL Very high Cholesterol in VLDL Calc [Ma ss/Vol]Ordered By: Arash Henry on 02-07-2023 Cholesterol in VLDL [Mass/Vol] 53 mg/dL [facility] Color Auto (U)Ordered By: Jailyn Kim on 02-07-2023 Color (U) Yellow Yellow [facility] Complete Blood Count Auto Di ffon 02-07-2023 Basophils (Bld) [#/Vol] 0.1 10*3/uL Normal 0.0-0.2 [facility] Comment on above: Result Comment: PERF ORMED BY: [place] [address] [employer] YOJANA GUADARRAMA M.D. Performed By: #### C BC #### [address] Basophils/100 WBC (Bld) 0.9 % Normal . [facility] Comment on above: Performed By: #### C BC #### [facility] [address] [place] [address] [place] Eosinophils (Bld) [#/Vol] 0.3 10*3/uL Normal 0.0-0.45 [facility] Comment on above: Performed By: #### C BC #### [facility] [address] [place] [address] [place] Eosinophils/100 WBC (Bld) 2.1 % Normal . [facility] Comment on above: Performed By: #### C BC #### [facility] [address] Erythrocyte distribution width (RBC) [Ratio] 14.2 % Normal 12.0-14.8 [facility] Comment on above: Performed By: #### C BC #### [facility] [address] Hematocrit (Bld) [Volume fraction] 37.7 % Low 38.8-50.0 [facility] Comment on above: Performed By: #### C BC #### [facility] [address] Hemoglobin (Bld) [Mass/Vol] 13.3 g/dL Normal 13.0-17.0 [facility] Comment on above: Performed By: #### C BC #### [address] Lymphocytes (Bld) [#/Vol] 4.0 10*3/uL Normal 1.00-4.8 [facility] Comment on above: Performed By: #### C BC #### [address] Lymphocytes/100 WBC (Bld) 32.2 % Normal . [facility] Comment on above: Performed By: #### C BC #### [address] MCH (RBC) [Entitic mass] 30.2 pg Normal 27.5-35.2 [facility] Comment on above: Performed By: #### C BC #### [address] MCV (RBC) [Entitic vol] 85.7 fL Normal 83.5-101 [facility] Comment on above: Performed By: #### C BC #### [address] Mean Corpuscular HGB Conc 35.2 g/dL Normal 32.5-35.6 [facility] Comment on above: Performed By: #### C BC #### [address] Monocytes (Bld) [#/Vol] 1.2 10*3/uL High 0.0-0.8 [facility] Comment on above: Performed By: #### C BC #### [address] [place] [address] [place] Monocytes/100 WBC (Bld) 17.26 % Normal 0.00-20.00 [facility] Comment on above: Performed By: #### C BC #### [address] Monocytes/100 WBC (Bld) 9.4 % Normal . [facility] Comment on above: Performed By: #### C BC #### [address] Neutrophils (Bld) [#/Vol] 6.8 10*3/uL Normal 1.8-7.7 [facility] Comment on above: Performed By: #### C BC #### [address] Neutrophils/100 WBC (Bld) 55.4 % Normal . [facility] Comment on above: Performed By: #### C BC #### [address] NRBC% 0.0 /100{WBC} Normal 0-0.5 [facility] Comment on above: Performed By: #### C BC #### [address] Platelet mean volume (Bld) [Entitic vol] 8.4 fL Normal 6.6-10.1 [facility] Comment on above: Performed By: #### C BC #### [place] [address] [place] Platelets (Bld) [#/Vol] 332 10*3/uL Normal 150-450 [facility] Comment on above: Performed By: #### C BC #### [place] [address] [place] RBC (Bld) [#/Vol] 4.40 10*6/uL Normal 3.90-5.60 [facility] Comment on above: Performed By: #### C BC #### [address] WBC (Bld) [#/Vol] 12.4 10*3/uL High 4.1-10.5 [facility] Comment on above: Performed By: #### C BC #### [facility] [address] Comprehensive Metabolic Pane benoit 02-07-2023 Albumin [Mass/Vol] 4.3 g/dL Normal 3.5-5.7 [facility] Comment on above: Performed By: #### C BC #### [address] Albumin/Globulin [Mass ratio] 1.1 {ratio} Normal [facility] Comment on above: Performed By: #### C BC #### [address] ALP [Catalytic activity/Vol] 123 U/L High 34-104 [facility] Comment on above: Performed By: #### C BC #### [address] ALT [Catalytic activity/Vol] 10 U/L Normal 7-52 [facility] Comment on above: Performed By: #### C BC #### [address] Anion gap [Moles/Vol] 17.4 mmol/L High 6.0-15.0 [facility] Comment on above: Performed By: #### C BC #### [facility] [address] [place] [address] AST [Catalytic activity/Vol] 15 U/L Normal 13-39 [facility] Comment on above: Performed By: #### C BC #### [address] Bilirubin [Mass/Vol] 0.7 mg/dL Normal 0.3-1.0 [facility] Comment on above: Performed By: #### C BC #### [address] Calcium [Mass/Vol] 9.8 mg/dL Normal 8.6-10.3 [facility] Comment on above: Performed By: #### C BC #### [facility] [address] Chloride [Moles/Vol] 102 mmol/L Normal 98-107 [facility] Comment on above: Performed By: #### C BC #### [facility] [address] CO2 [Moles/Vol] 18.4 mmol/L Low 21.0-31.0 [facility] Comment on above: Performed By: #### C BC #### [facility] [address] Creatinine [Mass/Vol] 2.87 mg/dL High 0.70-1.30 [facility] Comment on above: Performed By: #### C BC #### [address] Creatinine Clr Calc Pharmacy 41.08 [facility] Comment on above: Result Comment: PERF ORMED BY: [place] [address] [employer] YOJANA GUADARRAMA M.D. Performed By: #### C BC #### [address] GFR/1.73 sq M.predicted MDRD (S/P/Bld) [Vol rate/Area] 24.164 mL/min/{1.73_m2} [facility] Comment on above: Performed By: #### C BC #### [address] Globulin (S) [Mass/Vol] 3.8 g/dL [facility] Comment on above: Performed By: #### C BC #### [address] Glucose [Mass/Vol] 63 mg/dL Low 70-100 [facility] Comment on above: Result Comment: [place] Glucose Reference Range is dependent on time and content of last meal. Glucose of more than 200 mg/dL in a nonstressed, ambulatory subject supports the diagnosis of Diabetes Mellitus. ADA recommended reference range Performed By: #### C BC #### [address] Potassium [Moles/Vol] 2.8 mmol/L Off scale low 3.5-5.1 [facility] Comment on above: Result Comment: Crit ical Result Called to and read back by: IONA HIGGINBOTHAM at: 02/07/2023 14:36:39 by:[id number] Performed By: #### C BC #### [address] Protein [Mass/Vol] 8.1 g/dL Normal 6.4-8.9 [facility] Comment on above: Performed By: #### C BC #### [address] Sodium [Moles/Vol] 135 mmol/L Low 136-145 [facility] Comment on above: Performed By: #### C BC #### [address] Urea nitrogen [Mass/Vol] 50 mg/dL High 7-25 [facility] Comment on above: Performed By: #### C BC #### [address] Creatinine [Mass/volume] in Serum or PlasmaOrdered By: Ewa Kim on 02-07-2023 Creatinine [Mass/Vol] 2.87 mg/dL 0.70-1.30 [facility] Dipstick and Microscopicon 1 Appearance (U) Cloudy Critically abnormal Clear [facility] Comment on above: Order Comment: Name Collection Type:: Clean-Voided Midstream Performed By: #### C BC #### [place] [address] [place] Bacteria,Urine 2+ High None Seen [facility] Comment on above: Order Comment: Name Collection Type:: Clean-Voided Midstream Performed By: #### C BC #### [place] [address] [place] Bilirubin,Urine Negative Normal Negative [facility] Comment on above: Order Comment: Name Collection Type:: Clean-Voided Midstream Performed By: #### C BC #### [facility] [address] [place] [address] [place] Color (U) Yellow Normal Yellow [facility] Comment on above: Order Comment: Name Collection Type:: Clean-Voided Midstream Performed By: #### C BC #### [address] Glucose Ql (U) Normal Normal Normal [facility] Comment on above: Order Comment: Name Collection Type:: Clean-Voided Midstream Performed By: #### C BC #### [address] Hyaline Casts,Urine 0-8 Normal 0-8 [facility] Comment on above: Order Comment: Name Collection Type:: Clean-Voided Midstream Result Comment: PERF ORMED BY: [place] [address] [employer] YOJANA GUADARRAMA M.D. Performed By: #### C BC #### [address] Ketones Ql (U) Negative Normal Negative [facility] Comment on above: Order Comment: Name Collection Type:: Clean-Voided Midstream Performed By: #### C BC #### [address] Leukocyte esterase Test strip Ql (U) 4+ High Negative [facility] Comment on above: Order Comment: Name Collection Type:: Clean-Voided Midstream Performed By: #### C BC #### [place] [address] [place] Nitrite,Urine Negative Normal Negative [facility] Comment on above: Order Comment: Name Collection Type:: Clean-Voided Midstream Performed By: #### C BC #### [place] [address] [place] Occult Blood,Urine Trace High Negative [facility] Comment on above: Order Comment: Name Collection Type:: Clean-Voided Midstream Result Comment: PERF ORMED BY: [place] [address] [employer] YOJANA GUADARRAMA M.D. Performed By: #### C BC #### [address] pH (U) 5.5 [pH] Normal 5.0-9.0 [facility] Comment on above: Order Comment: Name Collection Type:: Clean-Voided Midstream Performed By: #### C BC #### [address] Protein,Urine Trace High Negative [facility] Comment on above: Order Comment: Name Collection Type:: Clean-Voided Midstream Performed By: #### C BC #### [address] RBC LM.HPF (Urine sed) [#/Area] 0 /[HPF] Normal 0-4 [facility] Comment on above: Order Comment: Name Collection Type:: Clean-Voided Midstream Performed By: #### C BC #### [address] Specificy Grabill,Urine 1.012 Normal 1.001-1.030 [facility] Comment on above: Order Comment: Name Collection Type:: Clean-Voided Midstream Performed By: #### C BC #### [place] [address] [place] Squamous Epithelial Cell,Urine 3-4 High 0-2 [facility] Comment on above: Order Comment: Name Collection Type:: Clean-Voided Midstream Performed By: #### C BC #### [place] [address] [place] Urobilinogen,Urine Normal Normal Normal [facility] Comment on above: Order Comment: Name Collection Type:: Clean-Voided Midstream Performed By: #### C BC #### [place] [address] [place] WBC,Urine Innumerable High 0-4 [facility] Comment on above: Order Comment: Name Collection Type:: Clean-Voided Midstream Performed By: #### C BC #### [address] Drug Screen,Urineon 02-08-20 Amphetamine Screen,Urine Negative Normal Negative [facility] Comment on above: Performed By: #### C BC #### [address] Barbiturate Screen,Urine Negative Normal Negative [facility] Comment on above: Performed By: #### C BC #### [address] Benzodiazepines Screen,Urine Negative Normal Negative [facility] Comment on above: Performed By: #### C BC #### [address] Cannabinoid Screen,Urine Negative Normal Negative [facility] Comment on above: Result Comment: Thes e are unconfirmed results and should not be used for legal purposes. Drug Cut-Off Concentration: AMPH 1000 ng/mL WILMER 200 ng/mL FELICIA 200 ng/mL COCM 300 ng/mL OP 300 ng/mL PCP 25 ng/mL THC 20 ng/mL PERFORMED BY: [place] [address] [employer] YOJANA GUADARRAMA M.D. Performed By: #### C BC #### [address] Cocaine Screen,Urine Negative Normal Negative [facility] Comment on above: Performed By: #### C BC #### [address] Opiate Screen,Urine Negative Normal Negative [facility] Comment on above: Performed By: #### C BC #### [address] Phencyclidine Screen,Urine Negative Normal Negative [facility] Comment on above: Performed By: #### C BC #### [address] Eosinophils Auto (Bld) [#/Vo l]Ordered By: Ewa Kim on 02-07-2023 Eosinophils (Bld) [#/Vol] 0.3 10*3/uL 0.0-0.45 [facility] Eosinophils/100 WBC Auto (Bl d)Ordered By: Ewa Stevenimore on 02-07-2023 Eosinophils/100 WBC (Bld) 2.1 % . [facility] Erythrocyte distribution wid th Auto (RBC) [Ratio]Ordered By: Ewa Stevenimore on 02-07-2023 Erythrocyte distribution width (RBC) [Ratio] 14.2 % 12.0-14.8 [facility] Ethanol [Mass/volume] in Ser um or PlasmaOrdered By: Ewaroosevelt Stevenimore on 02-07-2023 Ethanol [Mass/Vol] mg/dL [facility] Ethanol [Mass/Vol] TNP [facility] Comment on above: Test not performed Ethyl Alcohol Profileon 01-11 Ethanol [Mass/Vol] mg/dL Normal [facility] Comment on above: Performed By: #### C BC #### [facility] [address] [place] [address] Percent Ethanol Not performed Normal [facility] Comment on above: Result Comment: PERF ORMED BY: [place] [address] [employer] YOJANA GUADARRAMA M.D. Performed By: #### C BC #### [facility] [address] [place] [address] Globulin Calc (S) [Mass/Vol] Ordered By: Ewa Kim on 02-07-2023 Globulin (S) [Mass/Vol] 3.8 g/dL [facility] Glucose [Mass/volume] in Ser um or PlasmaOrdered By: Ewaroosevelt Butterfieldore on 02-07-2023 Glucose [Mass/Vol] 63 mg/dL 70-100 [facility] Comment on above: ADA recommended refe rence rangeRandom Glucose Reference Range is dependent on time and content of last meal. Glucose of more than 200 mg/dL in a nonstressed, ambulatory subject supports the diagnosis of Diabetes Mellitus. Hematocrit Auto (Bld) [Volum e fraction]Ordered By: Ewa Stevenimore on 02-07-2023 Hematocrit (Bld) [Volume fraction] 37.7 % 38.8-50.0 [facility] Hemoglobin [Mass/volume] in BloodOrdered By: Ewa Julio on 02-07-2023 Hemoglobin (Bld) [Mass/Vol] 13.3 g/dL 13.0-17.0 [facility] Ketones Auto test strip (U) [Mass/Vol]Ordered By: Ewa Kim on 02-07-2023 Ketones (U) [Mass/Vol] Negative Negative [facility] - UrinalysisOrder ed By: Ewa Julio on 02-07-2023 Hyaline casts LM Ql (Urine sed) 0-8 [LPF] 0-8 [facility] Leukocytes [#/volume] correc heather for nucleated erythrocytes in Blood by Automated counOrdered By: Ewaroosevelt Stevenmarito on 02-07-2023 WBC corrected for nucl RBC Auto (Bld) [#/Vol] 12.4 10*3/uL 4.1-10.5 [facility] Lipid Panelon 02-07-2023 Cholesterol [Mass/Vol] 142 mg/dL Normal 140-200 [facility] Comment on above: Result Comment: Chol less than 200 mg/dl low risk Chol 201-239 mg/dl borderline risk Chol 240 mg/dl and greater high risk Performed By: #### C BC #### [facility] [address] Cholesterol in HDL [Mass/Vol] 31 mg/dL Normal 23-92 [facility] Comment on above: Result Comment: HDL CHOL ATP-III CLASSIFICATION Cardiovascular Risk HDL > or equal to 60 mg/dL LOW HDL < 40 mg/dL HIGH Performed By: #### C BC #### [facility] [address] [place] [id number] [facility] Cholesterol.total/Chol esterol in HDL [Mass ratio] 4.6 {ratio} Normal <5.0 [facility] Comment on above: Performed By: #### C BC #### [facility] [address] [place] [id number] [facility] LDL Cholesterol,Calculated 58 mg/dL Normal 0-100 [facility] Comment on above: Result Comment: LDL ATP III CLASSIFICATION LDL less than 100 mg/dL Optimal LDL 100-129 mg/dL Near or above optimal LDL 130-159 mg/dL Borderline high LDL 160-189 mg/dL High LDL greater than 189 mg/dL Very high Performed By: #### C BC #### [facility] [address] Triglyceride w/Reflex 265 mg/dL High 0-149 [facility] Comment on above: Result Comment: TRIG ATP III CLASSIFICATION TRIG less than 150 mg/dL Normal TRIG 150-199 mg/dL Borderline high TRIG 200-500 mg/dL High TRIG greater than 500 mg/dL Very high Standard traceable to the Center for Disease Conrtrol and Prevention (CDC) test method. Performed By: #### C BC #### [address] VLDL CHOLESTEROL 53 mg/dL Normal [facility] Comment on above: Performed By: #### C BC #### [facility] [address] Lymphocytes Auto (Bld) [#/Vo l]Ordered By: Ewa Stevenimore on 02-07-2023 Lymphocytes (Bld) [#/Vol] 4.0 10*3/uL 1.00-4.8 [facility] Lymphocytes/100 WBC Auto (Bl d)Ordered By: Ewa Bullimore on 02-07-2023 Lymphocytes/100 WBC (Bld) 32.2 % . [facility] MCH Auto (RBC) [Entitic mass ]Ordered By: Ewa Bullimore on 02-07-2023 MCH (RBC) [Entitic mass] 30.2 pg 27.5-35.2 [facility] MCHC Auto (RBC) [Mass/Vol]Or dered By: Ewa Bullimore on 02-07-2023 MCHC (RBC) [Mass/Vol] 35.2 g/dL 32.5-35.6 [facility] MCV Auto (RBC) [Entitic vol] Ordered By: Ewa Bullimore on 02-07-2023 MCV (RBC) [Entitic vol] 85.7 fL 83.5-101 [facility] Monocyte distribution width [Entitic volume] in Blood by AutomatedOrdered By: Ewa Stevenimore on 02-07-2023 Monocyte distribution width Auto (Bld) [Entitic vol] 17.26 % 0.00-20.00 [facility] Monocytes Auto (Bld) [#/Vol] Ordered By: Ewa Bullimore on 02-07-2023 Monocytes (Bld) [#/Vol] 1.2 10*3/uL 0.0-0.8 [facility] Monocytes/100 WBC Auto (Bld) Ordered By: Ewa Bullimore on 02-07-2023 Monocytes/100 WBC (Bld) 9.4 % . [facility] Neutrophils Auto (Bld) [#/Vo l]Ordered By: Ewa Stevenimore on 02-07-2023 Neutrophils (Bld) [#/Vol] 6.8 10*3/uL 1.8-7.7 [facility] Neutrophils/100 WBC Auto (Bl d)Ordered By: Ewa Stevenimore on 02-07-2023 Neutrophils/100 WBC (Bld) 55.4 % . [facility] Nitrite Test strip Ql (U)Ord ered By: Ewaroosevelt Kim on 02-07-2023 Nitrite Ql (U) Negative Negative [facility] No Panel InformationOrdered By: Ewa Kim on 02-07-2023 Estimated GFR (CKD-EPI) 24.164 mL/Min [facility] Creatinine Clearance (Chem 41.08 [facility] Nucleated erythrocytes [Pres ence] in Blood by Automated countOrdered By: Ewa Kim on 02-07-2023 Nucleated RBC Auto Ql (Bld) 0.0 /100{WBC} 0-0.5 [facility] Opiates [Presence] in Urine by Screen methodOrdered By: Ewa Kim on 02-07-2023 Opiates Screen Ql (U) Negative Negative [facility] Phencyclidine Screen Ql (U)O rdered By: Ewa Stevenimore on 02-07-2023 Phencyclidine Ql (U) Negative Negative [facility] Platelet mean volume Auto (B ld) [Entitic vol]Ordered By: Ewa Bullimore on 02-07-2023 Platelet mean volume (Bld) [Entitic vol] 8.4 fL 6.6-10.1 [facility] Platelets Auto (Bld) [#/Vol] Ordered By: Ewa Bullimore on 02-07-2023 Platelets (Bld) [#/Vol] 332 10*3/uL 150-450 [facility] Potassium [Moles/volume] in Serum or PlasmaOrdered By: Ewa Bullimore on 02-07-2023 Potassium [Moles/Vol] 2.8 mmol/L 3.5-5.1 [facility] Comment on above: Critical Result Call ed to and read back by: IONA HIGGINBOTHAM at: 02/07/2023 14:36:39 by:[id number] Protein Auto test strip (U) [Mass/Vol]Ordered By: Ewa Bullimore on 02-07-2023 Protein (U) [Mass/Vol] Trace mg/dL Negative [facility] Protein [Mass/volume] in Ser um or PlasmaOrdered By: Ewa Bullimore on 02-07-2023 Protein [Mass/Vol] 8.1 g/dL 6.4-8.9 [facility] RBC Auto (Bld) [#/Vol]Ordere d By: Ewa Bullimore on 02-07-2023 RBC (Bld) [#/Vol] 4.40 10*6/uL 3.90-5.60 [facility] Serum or plasma albumin/glob ulin mass ratioOrdered By: Ewa Bullimore on 02-07-2023 Albumin/Globulin [Mass ratio] 1.1 {ratio} [facility] Serum or plasma anion gap de terminationOrdered By: Ewa Bullimore on 02-07-2023 Anion gap [Moles/Vol] 17.4 mmol/L 6.0-15.0 [facility] Serum or plasma high density lipoprotein (HDL) cholesterol measurementOrdered By: Arash Henry on 02-07-2023 Cholesterol in HDL [Mass/Vol] 31 mg/dL 23-92 [facility] Comment on above: HDL CHOL ATP-III CLA SSIFICATION Cardiovascular RiskHDL > or equal to 60 mg/dL LOWHDL < 40 mg/dL HIGH Serum or plasma total choles terol/high density lipoprotein (HDL) cholesterol mass ratOrdered By: Arash Henry on 02-07-2023 Cholesterol.total/Chol esterol in HDL [Mass ratio] 4.6 {ratio} <5.0 [facility] Sodium [Moles/volume] in Ser um or PlasmaOrdered By: Ewa Kim on 02-07-2023 Sodium [Moles/Vol] 135 mmol/L 136-145 [facility] Specific gravity Auto test s trip (U) [Rel density]Ordered By: Ewa Kim on 02-07-2023 Specific gravity (U) [Rel density] 1.012 1.001-1.030 [facility] Squamous epithelial cells de tection in urine sediment by light microscopyOrdered By: Ewa Kim on 02-07-2023 Epithelial cells.squamous LM Ql (Urine sed) 3-4 [HPF] 0-2 [facility] Thyroid Stim Hormone w/Rflxo n 02-07-2023 Thyroid Stim Hormone w/Rflx 4.29 u[iU]/mL Normal 0.45-5.33 [facility] Comment on above: Performed By: #### C #### [address] Thyrotropin [Units/volume] i n Serum or PlasmaOrdered By: Ewa Kim on 02-07-2023 TSH Qn 4.29 m[IU]/L 0.45-5.33 [facility] Triglyceride [Mass/volume] i n Serum or PlasmaOrdered By: Arash Henry on 02-07-2023 Triglyceride [Mass/Vol] 265 mg/dL 0-149 [facility] Comment on above: TRIG ATP III CLASSIF ICATIONTRIG less than 150 mg/dL NormalTRIG 150-199 mg/dL Borderline highTRIG 200-500 mg/dL High TRIG greater than 500 mg/dL Very highStandard traceable to the Center for Disease Conrtrol and Prevention (CDC) test method. Urea nitrogen [Mass/volume] in Serum or PlasmaOrdered By: Ewa Kim on 02-07-2023 Urea nitrogen [Mass/Vol] 50 mg/dL 7 [facility] Urine Cultureon 02-07-2023 Bacteria identified Cx Nom (U) ORGANISM: Nida albicans (O:CANALB) [place] Count 30,000 PERFORMED BY: [place] [address] [employer] YOJANA GUADARRAMA M.D. [facility] Comment on above: Performed By: #### C BC #### [address] Urine bacteria detection by automated methodOrdered By: Ewa Kim on 02-07-2023 Bacteria Auto Ql (U) 2+ None Seen [facility] Urine clarity by refractomet ry automatedOrdered By: Ewa Kim on 02-07-2023 Clarity Refractometry automated (U) Cloudy Clear [facility] Urine culture routineOrdered By: Ewaroosevelt Kim on 02-07-2023 Bacteria identified Cx Nom (U) Nida albicans [facility] Urine glucose measurement by automated test strip (mass/volume)Ordered By: Ewa Kim on 02-07-2023 Glucose Auto test strip (U) [Mass/Vol] Normal mg/dL Normal [facility] Urine hemoglobin detection b y automated test stripOrdered By: Ewa Kim on 02-07-2023 Hemoglobin Auto test strip Ql (U) Trace Negative [facility] Urine leukocyte esterase det ection by automated test stripOrdered By: Ewa Kim on 02-07-2023 Leukocyte esterase Auto test strip Ql (U) 4+ Negative [facility] Urobilinogen Auto test strip (U) [Mass/Vol]Ordered By: Ewaroosevelt Kim on 02-07-2023 Urobilinogen (U) [Mass/Vol] Normal mg/dL Normal [facility] Vitamin D 25 Hydroxy Totalon 02-07-2023 Vitamin D 25 Hydroxy Total 27.2 ng/mL Low 30-100 [facility] Comment on above: Result Comment: HEATHER MIN D STATUS 25(OH)VITAMIN D RANGE (ng/mL) Deficient <20 Insufficient 20 to <30 Sufficient 30 to 100 Reference: Patricia MF,Arron CROWLEY, Elizabeth CARBAJAL, et al. Evaluation,treatment, and prevention of vitamin D deficiency; an Endocrine Society clinical practice guideline. JCEM. 2010; 96(7):191-. PERFORMED BY: [address] [address] [employer] YOJANA GUADARRAMA M.D. Performed By: #### C BC #### [facility] [address] [place] [address] [facility] Vitamin D+Metabolites [Mass/ volume] in Serum or PlasmaOrdered By: Ewa Kim on 02-07-2023 Vitamin D+Metabolites [Mass/Vol] 27.2 ng/mL 30-100 [facility] Comment on above: VITAMIN D STATUS 25( OH)VITAMIN D RANGE (ng/mL) Deficient <20 Insufficient 20 to <30Sufficient 30 to 100Reference: Patricia MF,Arron NC, Elizabeth CARBAJAL, et al. Evaluation,treatment, and prevention of vitamin D deficiency; an Endocrine Society clinical practice guideline. JCEM. 2010; 96(7):1911-. WBC Auto (Bld) [#/Vol]Ordere d By: Ewaroosevelt Kim on 02-07-2023 WBC (Bld) [#/Vol] 12.4 10*3/uL 4.1-10.5 [facility] pH Auto test strip (U)Ordere d By: Ewaroosevelt Kim on 02-07-2023 pH (U) 5.5 [pH] 5.0-9.0 [facility] B-Type Natriuretic Peptideon 01-23-2023 Natriuretic peptide B (Bld) [Mass/Vol] 43.0 pg/mL Normal 5-100 [facility] Comment on above: Result Comment: PERF ORMED BY: [address] [place] [address] [employer] YOJANA GUADARRAMA M.D. Performed By: #### H S TROP #### [facility] [address] [place] [address] [facility] Basic Metabolic Panelon 10- Anion gap [Moles/Vol] 21.7 mmol/L High 6.0-15.0 [facility] Comment on above: Performed By: #### H S TROP #### [facility] [address] [place] [address] [place] Calcium [Mass/Vol] 9.7 mg/dL Normal 8.6-10.3 [facility] Comment on above: Performed By: #### H S TROP #### [facility] [address] [place] [address] [place] Chloride [Moles/Vol] 104 mmol/L Normal 98-107 [facility] Comment on above: Performed By: #### H S TROP #### [facility] [address] CO2 [Moles/Vol] 15.4 mmol/L Low 21.0-31.0 [facility] Comment on above: Performed By: #### H S TROP #### [facility] [address] [place] [address] [place] Creatinine [Mass/Vol] 2.90 mg/dL High 0.70-1.30 [facility] Comment on above: Performed By: #### H S TROP #### [facility] [address] [place] [address] [place] Creatinine Clr Calc Pharmacy 40.73 [facility] Comment on above: Result Comment: PERF ORMED BY: [place] [address] [employer] YOJANA GUADARRAMA M.D. Performed By: #### H S TROP #### [place] [address] [place] GFR/1.73 sq M.predicted MDRD (S/P/Bld) [Vol rate/Area] 23.864 mL/min/{1.73_m2} [facility] Comment on above: Performed By: #### H S TROP #### [place] [address] [place] Glucose [Mass/Vol] 203 mg/dL High 70-100 [facility] Comment on above: Result Comment: [place] Glucose Reference Range is dependent on time and content of last meal. Glucose of more than 200 mg/dL in a nonstressed, ambulatory subject supports the diagnosis of Diabetes Mellitus. ADA recommended reference range Performed By: #### H S TROP #### [facility] [address] Potassium [Moles/Vol] 3.1 mmol/L Low 3.5-5.1 [facility] Comment on above: Performed By: #### H S TROP #### [facility] [address] Sodium [Moles/Vol] 138 mmol/L Normal 136-145 [facility] Comment on above: Performed By: #### H S TROP #### [facility] [address] Urea nitrogen [Mass/Vol] 42 mg/dL High 7-25 [facility] Comment on above: Performed By: #### H S TROP #### [facility] [address] Basophils Auto (Bld) [#/Vol] Ordered By: Jessica Black on 01-23-2023 Basophils (Bld) [#/Vol] 0.1 10*3/uL 0.0-0.2 [facility] Basophils/100 WBC Auto (Bld) Ordered By: Jessica Black on 01-23-2023 Basophils/100 WBC (Bld) 0.9 % . [facility] Calcium [Mass/volume] in Ser um or PlasmaOrdered By: Jessica Black on 01-23-2023 Calcium [Mass/Vol] 9.7 mg/dL 8.6-10.3 [facility] Carbon dioxide, total [Moles /volume] in Serum or PlasmaOrdered By: Jessica Black on 01-23-2023 CO2 [Moles/Vol] 15.4 mmol/L 21.0-31.0 [facility] Chloride [Moles/volume] in S russ or PlasmaOrdered By: Jessica Black on 01-23-2023 Chloride [Moles/Vol] 104 mmol/L 98-107 [facility] Complete Blood Count Auto Di ffon 01-23-2023 Basophils (Bld) [#/Vol] 0.1 10*3/uL Normal 0.0-0.2 [facility] Comment on above: Result Comment: PERF ORMED BY: [place] [address] [employer] YOJANA GUADARRAMA M.D. Performed By: #### H S TROP #### [place] [address] [place] Basophils/100 WBC (Bld) 0.9 % Normal . [facility] Comment on above: Performed By: #### H S TROP #### [place] [address] [place] Eosinophils (Bld) [#/Vol] 0.3 10*3/uL Normal 0.0-0.45 [facility] Comment on above: Performed By: #### H S TROP #### [address] Eosinophils/100 WBC (Bld) 2.6 % Normal . [facility] Comment on above: Performed By: #### H S TROP #### [address] Erythrocyte distribution width (RBC) [Ratio] 14.1 % Normal 12.0-14.8 [facility] Comment on above: Performed By: #### H S TROP #### [address] Hematocrit (Bld) [Volume fraction] 39.6 % Normal 38.8-50.0 [facility] Comment on above: Performed By: #### H S TROP #### [place] [address] [place] Hemoglobin (Bld) [Mass/Vol] 13.4 g/dL Normal 13.0-17.0 [facility] Comment on above: Performed By: #### H S TROP #### [place] [address] [place] Lymphocytes (Bld) [#/Vol] 3.7 10*3/uL Normal 1.00-4.8 [facility] Comment on above: Performed By: #### H S TROP #### [address] Lymphocytes/100 WBC (Bld) 31.2 % Normal . [facility] Comment on above: Performed By: #### H S TROP #### [address] MCH (RBC) [Entitic mass] 29.4 pg Normal 27.5-35.2 [facility] Comment on above: Performed By: #### H S TROP #### [address] MCV (RBC) [Entitic vol] 86.9 fL Normal 83.5-101 [facility] Comment on above: Performed By: #### H S TROP #### [address] Mean Corpuscular HGB Conc 33.9 g/dL Normal 32.5-35.6 [facility] Comment on above: Performed By: #### H S TROP #### [place] [address] [place] Monocytes (Bld) [#/Vol] 1.1 10*3/uL High 0.0-0.8 [facility] Comment on above: Performed By: #### H S TROP #### [address] Monocytes/100 WBC (Bld) 20.47 % High 0.00-20.00 [facility] Comment on above: Result Comment: For adults in ED, MDW > 20.0 may be associated with a higher risk of sepsis during the first 12 hrs of hospital admission Performed By: #### H S TROP #### [place] [address] [place] Monocytes/100 WBC (Bld) 9.1 % Normal . [facility] Comment on above: Performed By: #### H S TROP #### [place] [address] [place] Neutrophils (Bld) [#/Vol] 6.6 10*3/uL Normal 1.8-7.7 [facility] Comment on above: Performed By: #### H S TROP #### [facility] [address] [place] [address] [place] Neutrophils/100 WBC (Bld) 56.2 % Normal . [facility] Comment on above: Performed By: #### H S TROP #### [facility] [address] [place] [address] [place] NRBC% 0.1 /100{WBC} Normal 0-0.5 [facility] Comment on above: Performed By: #### H S TROP #### [facility] [address] Platelet mean volume (Bld) [Entitic vol] 8.4 fL Normal 6.6-10.1 [facility] Comment on above: Performed By: #### H S TROP #### [facility] [address] [place] [address] [place] Platelets (Bld) [#/Vol] 315 10*3/uL Normal 150-450 [facility] Comment on above: Performed By: #### H S TROP #### [facility] [address] [place] [address] [place] RBC (Bld) [#/Vol] 4.56 10*6/uL Normal 3.90-5.60 [facility] Comment on above: Performed By: #### H S TROP #### [facility] [address] [place] [address] [place] WBC (Bld) [#/Vol] 11.7 10*3/uL High 4.1-10.5 [facility] Comment on above: Performed By: #### H S TROP #### [facility] [address] [place] [address] [place] Creatinine [Mass/volume] in Serum or PlasmaOrdered By: Jessica Black on 01-23-2023 Creatinine [Mass/Vol] 2.90 mg/dL 0.70-1.30 [facility] ECG 12 lead ECGon 01-23-2023 ECG 12 lead ECG [facility] Main [place] [address] [place] [address] Electrocardiograph Report Signed Patient: Steven Walden MR#: [id number] : 1960 Acct:[id number] Age/Sex: 63 / M ADM Date: 01/23/23 Loc: ER Room: Type: [facility] ER Attending Dr: Ordering Provider: Jessica Black MD Date of Service: 01/23/23 ECG/ECG 12 lead ECG: Shortness of Breath/Dyspnea Copies to: Test Reason : Blood Pressure : 139/080 mmHG Vent. Rate : 084 BPM Atrial Rate : 084 BPM P-R Int : 204 ms QRS Dur : 106 ms QT Int : 414 ms P-R-T Axes : 043 -05 -32 degrees QTc Int : 489 ms Normal sinus rhythm Nonspecific T wave abnormality Prolonged QT Abnormal ECG When compared with ECG of 23-JAN-2023 16:31, (Unconfirmed) ST no longer elevated in Inferior leads ST no longer depressed in Lateral leads T wave inversion now evident in Inferior leads T wave inversion no longer evident in Lateral leads Confirmed by JESSICA BLACK MD ([id number]) on 01/24/2023 2:18:45 AM Referred By: Electronically Signed By:JESSICA BLACK MD Transcribed By: MUS Signed By Jessica Black MD 01/09 10/01 0218 Normal [facility] ECG 12 lead ECG [facility] [place] [address] Electrocardiograph Report Signed Patient: Steven Walden MR#: [id number] : 1960 Acct:[id number] Age/Sex: 63 / M ADM Date: 01/23/23 Loc: ER Room: Type: [facility] ER Attending Dr: Ordering Provider: Jessica Black MD Date of Service: 01/23/23 ECG/ECG 12 lead ECG: Shortness of Breath/Dyspnea Copies to: Test Reason : Blood Pressure : / mmHG Vent. Rate : 086 BPM Atrial Rate : 086 BPM P-R Int : 182 ms QRS Dur : 102 ms QT Int : 434 ms P-R-T Axes : 119 044 132 degrees QTc Int : 519 ms Normal sinus rhythm ST elevation, consider inferior injury or acute infarct Prolonged QT ACUTE AL / STEMI Consider right ventricular involvement in acute inferior infarct Abnormal ECG No previous ECGs available Confirmed by JESSICA BLACK MD ([id number]) on 01/24/2023 2:19:05 AM Referred By: Electronically Signed By:JESSICA BLACK MD Transcribed By: MUS Signed By Jessica Black MD 01/09 10/01 021 Normal [facility] Eosinophils Auto (Bld) [#/Vo l]Ordered By: Jessica Black on 01-23-2023 Eosinophils (Bld) [#/Vol] 0.3 10*3/uL 0.0-0.45 [facility] Eosinophils/100 WBC Auto (Bl d)Ordered By: Jessica Black on 01-23-2023 Eosinophils/100 WBC (Bld) 2.6 % . [facility] Erythrocyte distribution wid th Auto (RBC) [Ratio]Ordered By: Jessica Black on 01-23-2023 Erythrocyte distribution width (RBC) [Ratio] 14.1 % 12.0-14.8 [facility] Glucose [Mass/volume] in Ser um or PlasmaOrdered By: Jessica Black on 01-23-2023 Glucose [Mass/Vol] 203 mg/dL 70-100 [facility] Comment on above: ADA recommended refe rence rangeRandom Glucose Reference Range is dependent on time and content of last meal. Glucose of more than 200 mg/dL in a nonstressed, ambulatory subject supports the diagnosis of Diabetes Mellitus. Hematocrit Auto (Bld) [Volum e fraction]Ordered By: Jessica Black on 01-23-2023 Hematocrit (Bld) [Volume fraction] 39.6 % 38.8-50.0 [facility] Hemoglobin [Mass/volume] in BloodOrdered By: Jessica Black on 01-23-2023 Hemoglobin (Bld) [Mass/Vol] 13.4 g/dL 13.0-17.0 [facility] Laboratory - Chemistry and C hemistry - challengeOrdered By: Jessica Black on 01-23-2023 CO2 [Moles/Vol] 16.1 mmol/L 24.0-29.0 [facility] HCO3 (Bld) [Moles/Vol] 15.6 mmol/L 23.0-29.0 [facility] Leukocytes [#/volume] correc heather for nucleated erythrocytes in Blood by Automated counOrdered By: Jesscia Black on 01-23-2023 WBC corrected for nucl RBC Auto (Bld) [#/Vol] 11.7 10*3/uL 4.1-10.5 [facility] Lymphocytes Auto (Bld) [#/Vo l]Ordered By: Jessica Black on 01-23-2023 Lymphocytes (Bld) [#/Vol] 3.7 10*3/uL 1.00-4.8 [facility] Lymphocytes/100 WBC Auto (Bl d)Ordered By: Jessica Black on 01-23-2023 Lymphocytes/100 WBC (Bld) 31.2 % . [facility] MCH Auto (RBC) [Entitic mass ]Ordered By: Jessica Black on 01-23-2023 MCH (RBC) [Entitic mass] 29.4 pg 27.5-35.2 [facility] MCHC Auto (RBC) [Mass/Vol]Or dered By: Jessica Black on 01-23-2023 MCHC (RBC) [Mass/Vol] 33.9 g/dL 32.5-35.6 [facility] MCV Auto (RBC) [Entitic vol] Ordered By: Jessica Black on 01-23-2023 MCV (RBC) [Entitic vol] 86.9 fL 83.5-101 [facility] Monocyte distribution width [Entitic volume] in Blood by AutomatedOrdered By: Jessica Black on 01-23-2023 Monocyte distribution width Auto (Bld) [Entitic vol] 20.47 % 0.00-20.00 [facility] Comment on above: For adults in ED, MD W > 20.0 may be associated with a higher risk of sepsis during the first 12 hrs of hospital admission Monocytes Auto (Bld) [#/Vol] Ordered By: Jessica Black on 01-23-2023 Monocytes (Bld) [#/Vol] 1.1 10*3/uL 0.0-0.8 [facility] Monocytes/100 WBC Auto (Bld) Ordered By: Jessica Black on 01-23-2023 Monocytes/100 WBC (Bld) 9.1 % . [facility] Natriuretic peptide B [Mass/ Vol]Ordered By: Jessica Black on 01-23-2023 Natriuretic peptide B (Bld) [Mass/Vol] 43.0 pg/mL 5-100 [facility] Neutrophils Auto (Bld) [#/Vo l]Ordered By: Jessica Black on 01-23-2023 Neutrophils (Bld) [#/Vol] 6.6 10*3/uL 1.8-7.7 [facility] Neutrophils/100 WBC Auto (Bl d)Ordered By: Jessica Black on 01-23-2023 Neutrophils/100 WBC (Bld) 56.2 % . [facility] No Panel InformationOrdered By: Jessica Black on 01-23-2023 Blood Gas Critical Value See comment [facility] Comment on above: Critical Value vicente d on: 01/23/2023 at 17:09 Blood Gas Sample Site Venous Fir [facility] FiO2 21 % [facility] Venous Blood Base Excess -2.8 mmol/L -3.0-3.0 [facility] Venous Blood Oxygen Content 6.2 mmol/L 6.6-9.7 [facility] Venous Blood Oxygen Saturation 74.5 % 73.0-76.0 [facility] Venous Blood Partial Pressure CO2 15.9 mm[Hg] 38.0-50.0 [facility] Venous Blood Partial Pressure O2 32.5 mm[Hg] 35.0-45.0 [facility] Venous Blood pH 7.61 7.32-7.43 [facility] Estimated GFR (CKD-EPI) 23.864 mL/Min [facility] Creatinine Clearance (Chem 40.73 [facility] Nucleated erythrocytes [Pres ence] in Blood by Automated countOrdered By: Jessica Black on 01-23-2023 Nucleated RBC Auto Ql (Bld) 0.1 /100{WBC} 0-0.5 [facility] Platelet mean volume Auto (B ld) [Entitic vol]Ordered By: Jessica Black on 01-23-2023 Platelet mean volume (Bld) [Entitic vol] 8.4 fL 6.6-10.1 [facility] Platelets Auto (Bld) [#/Vol] Ordered By: Jessica Black on 01-23-2023 Platelets (Bld) [#/Vol] 315 10*3/uL 150-450 [facility] Potassium [Moles/volume] in Serum or PlasmaOrdered By: Jessica Black on 01-23-2023 Potassium [Moles/Vol] 3.1 mmol/L 3.5-5.1 [facility] RBC Auto (Bld) [#/Vol]Ordere d By: Jessica Black on 01-23-2023 RBC (Bld) [#/Vol] 4.56 10*6/uL 3.90-5.60 [facility] Serum or plasma anion gap de terminationOrdered By: Jessica Black on 01-23-2023 Anion gap [Moles/Vol] 21.7 mmol/L 6.0-15.0 [facility] Sodium [Moles/volume] in Ser um or PlasmaOrdered By: Jessica Black on 01-23-2023 Sodium [Moles/Vol] 138 mmol/L 136-145 [facility] Troponin I High Sensitivityo n 01-23-2023 Troponin I High Sensitivity 7.3 pg/mL Normal 0.0-20.0 [facility] Comment on above: Result Comment: PERF ORMED BY: [place] [address] [employer] YOJANA GUADARRAMA M.D. Performed By: #### H S TROP #### [address] Troponin I.cardiac [Mass/vol ume] in Serum or Plasma by Detection limit <= 0.01 ng/Ordered By: Jessica Black on 01-23-2023 Troponin I.cardiac DL <= 0.01 ng/mL [Mass/Vol] 7.3 pg/mL 0.0-20.0 [facility] Urea nitrogen [Mass/volume] in Serum or PlasmaOrdered By: Jessica Black on 01-23-2023 Urea nitrogen [Mass/Vol] 42 mg/dL 7-25 [facility] Venous Blood [place] CO2 [Moles/Vol] 16.1 mmol/L Low 24.0-29.0 [facility] Comment on above: Performed By: #### V BG #### Point of Care testing , HCO3 (Bld) [Moles/Vol] 15.6 mmol/L Low 23.0-29.0 [facility] Comment on above: Performed By: #### V BG #### Point of Care testing , Respiratory Critical Normal [facility] Comment on above: Result Comment: Crit ical Value called on: 01/23/2023 at 17:09 PERFORMED BY: [facility] [address] [employer] YOJANA GUADARRAMA M.D. Performed By: #### V BG #### Point of Care testing , VBG Base Excess -2.8 mmol/L Normal -3.0-3.0 [facility] Comment on above: Performed By: #### V BG #### Point of Care testing , VBG Draw Site Venous Normal [facility] Comment on above: Performed By: #### V BG #### Point of Care testing , VBG Frac Inspired O2 21 % Normal [facility] Comment on above: Performed By: #### V BG #### Point of Care testing , VBG O2 Content 6.2 mmol/L Low 6.6-9.7 [facility] Comment on above: Performed By: #### V BG #### Point of Care testing , VBG Oxygen Saturation 74.5 % Normal 73.0-76.0 [facility] Comment on above: Performed By: #### V BG #### Point of Care testing , VBG PCO2 15.9 mm[Hg] Off scale low 38.0-50.0 [facility] Comment on above: Performed By: #### V BG #### Point of Care testing , VBG PH Venous PH 7.61 Off scale high 7.32-7.43 [facility] Comment on above: Performed By: #### V BG #### Point of Care testing , VBG PO2 32.5 mm[Hg] Low 35.0-45.0 [facility] Comment on above: Performed By: #### V BG #### Point of Care testing , WBC Auto (Bld) [#/Vol]Ordere d By: Jessica Black on 01-23-2023 WBC (Bld) [#/Vol] 11.7 10*3/uL 4.1-10.5 [facility] XR chest 1V portableon 01-23 XR chest 1V portable [facility] Main [address] [address] XRay Report Signed Patient: Steven Walden MR#: [id number] : 1960 Acct:[id number] Age/Sex: 63 / M ADM Date: 01/23/23 Loc: ER Room: Type: PRE ER Attending Dr: Copies to: Jessica Black MD Ordering Provider: Jessica Black MD Date of Service: 01/23/23 XR/XR chest 1V portable: Shortness of Breath/Dyspnea XR chest 1V portable 01/23/2023 4:30 PM SIGNS AND SYMPTOMS: Shortness of Breath/Dyspnea PROTOCOL: Frontal radiographs of the chest COMPARISON: None FINDINGS: The trachea is midline. The heart and mediastinal structures are within normal limits. There appears to be a calcified granuloma in the left lower chest. The lung parenchyma is clear, otherwise. The bony thorax is intact. XR/XR chest 1V portable IMPRESSION: No acute cardiopulmonary pathology. Impression dictated by: Steven Cardona M.D.01/23/2023 4:47 PM Dictation Location: [place] [address] Transcribed By: [place] 01/23/231646 Dictated By: Steven Cardona II, MD 01/23/231645 Signed By: 01/23/231646 Normal [facility] Telemedicineon 09-24-2022 Telemedicine [id number] Steven Walden 1960 [facility] Provider Department Center 09/24/2022 [facility] CARD [facility] Family History Family history unknown: Yes Level of Service:56185 [place] OFFICE/OUTPATIENT ESTABLISHED MOD MDM 30-39 MIN Reason for Visit and Comments: Telehealth Audio/video Visit [871] Normal [facility] PROF CHEM 8 (BAS METB)on Anion gap [Moles/Vol] 16.6 mmol/L Normal [facility] Comment on above: Performed By: #### C BC #### [facility] [address] [place] [address] [address] Kalie Rodas Calcium [Mass/Vol] 9.2 mg/dL Normal 8.5-10.1 [facility] Comment on above: Performed By: #### C BC #### [facility] [address] [place] [address] [address] Kalie Rodas Chloride [Moles/Vol] 101 mmol/L Normal 98-107 [facility] Comment on above: Performed By: #### C BC #### [facility] [address] [address] [address] Kalie Rodas CO2 [Moles/Vol] 26.0 mmol/L Normal 21.0-32.0 [facility] Comment on above: Performed By: #### C BC #### [facility] [address] [place] [address] [address] Kalie Rodas Creatinine [Mass/Vol] 3.76 mg/dL Critically high 0.70-1.30 [facility] Comment on above: Performed By: #### C BC #### [facility] [address] [address] [address] Kalie Rodas EGFR-AF PUERTO RICAN 20 mL/min/1.73m2 Critically low >=60 [facility] Comment on above: Performed By: #### C BC #### [facility] [address] [place] [address] [address] Kalie Rodas EGFR-NON AF PUERTO RICAN 17 mL/min/1.73m2 Critically low >=60 [facility] Comment on above: Performed By: #### C BC #### [facility] [address] [place] [address] Dr. Kalie Rodas Glucose [Mass/Vol] 244 mg/dL Critically high 74-106 [facility] Comment on above: Performed By: #### C BC #### [facility] [address] [address] [address] Kalie Rodas Potassium [Moles/Vol] 3.6 mmol/L Normal 3.5-5.1 [facility] Comment on above: Performed By: #### C BC #### [facility] [address] [address] [address] Kaile Rodas Sodium [Moles/Vol] 140 mmol/L Normal 136-145 [facility] Comment on above: Performed By: #### C BC #### [facility] [address] [address] [address] Kalie Rodas Urea nitrogen [Mass/Vol] 53.0 mg/dL Critically high 7.0-18.0 [facility] Comment on above: Performed By: #### C BC #### [facility] [address] [address] [address] Kalie Rdoas Urea nitrogen/Creatinine [Mass ratio] 14.1 mg/mg Normal [facility] Comment on above: Performed By: #### C BC #### [facility] [address] [address] [address] Kalie Rodas Office Visiton 08-09-2022 Follow-up visit [id number] Steven Walden 1960 M Date Provider Department Center 08/09/[address] [facility] Family History Family history unknown: Yes Level of Service:62928 [place] OFFICE/OUTPATIENT ESTABLISHED MOD MDM 30-39 MIN Reason for Visit and Comments: Hypertension [736931] Normal [facility] Cult,Bloodon 07-20-2022 Cult,Blood Specimen Description .BLOOD Special Requests R HAND 10ML Culture NO GROWTH 5 DAYS Report Status FINAL 07/20/2022 Normal [facility] Comment on above: Performed By: #### B MP, CBC #### [address] [id number] [place]: Rodrick Jones MD Cult,Blood Specimen Description .BLOOD Culture NO GROWTH 5 DAYS Report Status FINAL 07/20/2022 [facility] Comment on above: Performed By: #### B MP, CBC #### [address] [id number] [place]: Rodrick Jones MD Cult,Blood Specimen Description .BLOOD Special Requests RIGHT FOREARM 2ML Culture NO GROWTH 5 DAYS Report Status FINAL 07/20/2022 Normal [facility] Comment on above: Performed By: #### B MP, CBC #### [address] [address] [place]: Rodrick Jones MD Cult,Blood Specimen Description .BLOOD Special Requests RIGHT AC 3ML Culture NO GROWTH 5 DAYS Report Status FINAL 07/20/2022 Normal [facility] Comment on above: Performed By: #### C RP, RENP, CBC, MG #### [facility] [address] [place] [address] [place]: Rodrick Jones MD CBCon 07-19-2022 Erythrocyte distribution width (RBC) [Ratio] 13.4 % Normal 11.8-14.4 [facility] Comment on above: Performed By: #### C RP, RENP, CBC, MG #### [facility] [address] [place] [address] [place]: Rodrick Jones MD Hematocrit (Bld) [Volume fraction] 36.4 % Low 40.7-50.3 [facility] Comment on above: Performed By: #### C RP, RENP, CBC, MG #### [facility] [address] [place] [address] [place]: Rodrick Jones MD Hemoglobin (Bld) [Mass/Vol] 11.4 g/dL Low 13.0-17.0 [facility] Comment on above: Performed By: #### C RP, RENP, CBC, MG #### [facility] [place] [address] [place]: Rodrick Jones MD MCH (RBC) [Entitic mass] 31.1 pg Normal 25.2-33.5 [facility] Comment on above: Performed By: #### C RP, RENP, CBC, MG #### [facility] [address] [place] [address] [place]: Rodrick Jones MD MCHC (RBC) [Mass/Vol] 31.3 g/dL Normal 28.4-34.8 [facility] Comment on above: Performed By: #### C RP, RENP, CBC, MG #### [address] [address] [place]: Rodrick Jones MD MCV (RBC) [Entitic vol] 99.5 fL Normal 82.6-102.9 [facility] Comment on above: Performed By: #### C RP, RENP, CBC, MG #### [address] [address] [place]: Rodrick Jones MD NRBC Automated 0.0 per 100 WBC Normal 0.0 [facility] Comment on above: Performed By: #### C RP, RENP, CBC, MG #### [address] [address] [place]: Rodrick Jones MD Platelet mean volume (Bld) [Entitic vol] 10.7 fL Normal 8.1-13.5 [facility] Comment on above: Performed By: #### C RP, RENP, CBC, MG #### [facility] [address] [place] [address] [place]: Rodrick Jones MD Platelets (Bld) [#/Vol] 235 10*3/uL Normal 138-453 [facility] Comment on above: Performed By: #### C RP, RENP, CBC, MG #### [facility] [address] [place] [address] [place]: Rodrick Jones MD RBC (Bld) [#/Vol] 3.66 10*6/uL Low 4.21-5.77 [facility] Comment on above: Performed By: #### C RP, RENP, CBC, MG #### [address] [address] [place]: Rodrick Jones MD WBC (Bld) [#/Vol] 11.2 10*3/uL Normal 3.5-11.3 [facility] Comment on above: Performed By: #### C RP, RENP, CBC, MG #### [address] [address] [place]: Rodrick Jones MD Hemoglobin A1Con 07-19-2022 Glucose [Mass/Vol] 180 mg/dL Normal [facility] Comment on above: Result Comment: The ADA and AACC recommend providing the estimated average glucose result to permit better patient understanding of their HBA1c result. Performed By: #### C RP, RENP, CBC, MG #### [address] [address] [place]: Rodrick Jones MD HbA1c (Bld) [Mass fraction] 7.9 % High 4.0-6.0 [facility] Comment on above: Performed By: #### C RP, RENP, CBC, MG #### [facility] [address] [place] [address] [place]: Rodrick Jones MD Magnesiumon 2 Magnesium [Mass/Vol] 1.8 mg/dL Normal 1.6-2.6 [facility] Comment on above: Performed By: #### C RP, RENP, CBC, MG #### [facility] [address] [place] [address] [place]: Rodrick Jones MD Renal Function Panelon 07-19 Albumin [Mass/Vol] 3.4 g/dL Low 3.5-5.2 [facility] Comment on above: Performed By: #### C RP, RENP, CBC, MG #### [facility] [address] [place] [address] [place] [place]: Rodrick Jones MD Anion gap [Moles/Vol] 18 mmol/L High 9-17 [facility] Comment on above: Performed By: #### C RP, RENP, CBC, MG #### [facility] [address] [place] [address] [place]: Rodrick Jones MD Calcium [Mass/Vol] 9.4 mg/dL Normal 8.6-10.4 [facility] Comment on above: Performed By: #### C RP, RENP, CBC, MG #### [facility] [address] [place] [address] [place] [place]: Rodrick Jones MD Chloride [Moles/Vol] 101 mmol/L Normal 98-107 [facility] Comment on above: Performed By: #### C RP, RENP, CBC, MG #### [facility] [address] [place] [address] [place] [place]: Rodrick Jones MD CO2 [Moles/Vol] 24 mmol/L Normal 20-31 [facility] Comment on above: Performed By: #### C RP, RENP, CBC, MG #### [facility] [address] [place] [address] [place] [place]: Rodrick Jones MD Creatinine [Mass/Vol] 3.74 mg/dL High 0.70-1.20 [facility] Comment on above: Performed By: #### C RP, RENP, CBC, MG #### [facility] [address] [place] [address] [place] [place]: Rodrick Jones MD GFR/1.73 sq M.predicted among non-blacks MDRD (S/P/Bld) [Vol rate/Area] 18 mL/min/{1.73_m2} Low >60 [facility] Comment on above: Result Comment: These results are not intended for use in patients <18 years of age. eGFR results are calculated without a race factor using the 2020 CKD-EPI equation. Careful clinical correlation is recommended, particularly when comparing to results calculated using previous equations. The CKD-EPI equation is less accurate in patients with extremes of muscle mass, extra-renal metabolism of creatine, excessive creatine ingestion, or following therapy that affects renal tubular secretion. Performed By: #### C RP, RENP, CBC, MG #### [facility] [address] [place] [address] [place]: Rodrick Jones MD Glucose [Mass/Vol] 197 mg/dL High 70-99 [facility] Comment on above: Performed By: #### C RP, RENP, CBC, MG #### [facility] [address] [place] [address] [place]: Rodrick Jones MD Phosphorus, Inorg. 4.3 mg/dL Normal 2.5-4.5 [facility] Comment on above: Performed By: #### C RP, RENP, CBC, MG #### [facility] [address] [place] [address] [place]: Rodrick Jones MD Potassium [Moles/Vol] 4.7 mmol/L Normal 3.7-5.3 [facility] Comment on above: Performed By: #### C RP, RENP, CBC, MG #### [facility] [address] [place] [address] [place]: Rodrick Jones MD Sodium [Moles/Vol] 143 mmol/L Normal 135-144 [facility] Comment on above: Performed By: #### C RP, RENP, CBC, MG #### [facility] [address] [place] [address] [place]: Rodrick Jones MD Urea nitrogen [Mass/Vol] 36 mg/dL High 8-23 [facility] Comment on above: Performed By: #### C RP, RENP, CBC, MG #### [facility] [address] [place] [address] [place]: Rodrick Jones MD TSH w/reflex to FT4on 2022 Thyroid Stim. Horm. 1.72 uIU/mL Normal 0.30-5.00 [facility] Comment on above: Performed By: #### C RP, RENP, CBC, MG #### [address] [address] [place]: Rodrick Jones MD CBCon 07-18-2022 Erythrocyte distribution width (RBC) [Ratio] 13.2 % Normal 11.8-14.4 [facility] Comment on above: Performed By: #### I FX, URI, C4, PE, FKLLC, C3, PTHNCA #### [address] [address] [place]: Rodrick Jones MD Hematocrit (Bld) [Volume fraction] 34.3 % Low 40.7-50.3 [facility] Comment on above: Performed By: #### I FX, URI, C4, PE, FKLLC, C3, PTHNCA #### [address] [address] [place]: Rodrick Jones MD Hemoglobin (Bld) [Mass/Vol] 11.4 g/dL Low 13.0-17.0 [facility] Comment on above: Performed By: #### I FX, URI, C4, PE, FKLLC, C3, PTHNCA #### [address] [address] [place]: Rodrick Jones MD MCH (RBC) [Entitic mass] 30.6 pg Normal 25.2-33.5 [facility] Comment on above: Performed By: #### I FX, URI, C4, PE, FKLLC, C3, PTHNCA #### [address] [address] [place]: Rodrick Jones MD MCHC (RBC) [Mass/Vol] 33.2 g/dL Normal 28.4-34.8 [facility] Comment on above: Performed By: #### I FX, URI, C4, PE, FKLLC, C3, PTHNCA #### [place] [address] [place] [place]: Rodrick Jones MD MCV (RBC) [Entitic vol] 92.2 fL Normal 82.6-102.9 [facility] Comment on above: Performed By: #### I FX, URI, C4, PE, FKLLC, C3, PTHNCA #### [place] [address] [place] [place]: Rodrick Jones MD NRBC Automated 0.0 per 100 WBC Normal 0.0 [facility] Comment on above: Performed By: #### I FX, URI, C4, PE, FKLLC, C3, PTHNCA #### [place] [address] [place]: Rodrick Jones MD Platelet mean volume (Bld) [Entitic vol] 10.8 fL Normal 8.1-13.5 [facility] Comment on above: Performed By: #### I FX, URI, C4, PE, FKLLC, C3, PTHNCA #### [place] [address] [place] [place]: Rodrick Jones MD Platelets (Bld) [#/Vol] 220 10*3/uL Normal 138-453 [facility] Comment on above: Performed By: #### I FX, URI, C4, PE, FKLLC, C3, PTHNCA #### [place] [address] [place]: Rodrick Jones MD RBC (Bld) [#/Vol] 3.72 10*6/uL Low 4.21-5.77 [facility] Comment on above: Performed By: #### I FX, URI, C4, PE, FKLLC, C3, PTHNCA #### [address] [address] [place]: Rodrick Jones MD WBC (Bld) [#/Vol] 11.1 10*3/uL Normal 3.5-11.3 [facility] Comment on above: Performed By: #### I FX, URI, C4, PE, FKLLC, C3, PTHNCA #### [address] [address] [place]: Rodrick Jones MD Magnesiumon 07-18-2022 Magnesium [Mass/Vol] 1.6 mg/dL Normal 1.6-2.6 [facility] Comment on above: Performed By: #### I FX, URI, C4, PE, FKLLC, C3, PTHNCA #### [address] [address] [place]: Rodrick Jones MD Renal Function Panelon 07-18 Albumin [Mass/Vol] 3.6 g/dL Normal 3.5-5.2 [facility] Comment on above: Performed By: #### I FX, URI, C4, PE, FKLLC, C3, PTHNCA #### [address] [address] [place] [place]: Rodrick Jones MD Anion gap [Moles/Vol] 11 mmol/L Normal 9-17 [facility] Comment on above: Performed By: #### I FX, URI, C4, PE, FKLLC, C3, PTHNCA #### [address] [address] [place]: Rodrick Jones MD Calcium [Mass/Vol] 9.4 mg/dL Normal 8.6-10.4 [facility] Comment on above: Performed By: #### I FX, URI, C4, PE, FKLLC, C3, PTHNCA #### [address] [address] [place]: Rodrick Jones MD Chloride [Moles/Vol] 98 mmol/L Normal 98-107 [facility] Comment on above: Performed By: #### I FX, URI, C4, PE, FKLLC, C3, PTHNCA #### [address] [address] [place]: Rodrick Jones MD CO2 [Moles/Vol] 28 mmol/L Normal 20-31 [facility] Comment on above: Performed By: #### I FX, URI, C4, PE, FKLLC, C3, PTHNCA #### [address] [address] [place]: Rodrick Jones MD Creatinine [Mass/Vol] 3.43 mg/dL High 0.70-1.20 [facility] Comment on above: Performed By: #### I FX, URI, C4, PE, FKLLC, C3, PTHNCA #### [address] [address] [place]: Rodrick Jones MD GFR/1.73 sq M.predicted among non-blacks MDRD (S/P/Bld) [Vol rate/Area] 20 mL/min/{1.73_m2} Low >60 [facility] Comment on above: Result Comment: These results are not intended for use in patients <18 years of age. eGFR results are calculated without a race factor using the 2020 CKD-EPI equation. Careful clinical correlation is recommended, particularly when comparing to results calculated using previous equations. The CKD-EPI equation is less accurate in patients with extremes of muscle mass, extra-renal metabolism of creatine, excessive creatine ingestion, or following therapy that affects renal tubular secretion. Performed By: #### I FX, URI, C4, PE, FKLLC, C3, PTHNCA #### [address] [address] [place]: Rodrick Jones MD Glucose [Mass/Vol] 205 mg/dL High 70-99 [facility] Comment on above: Performed By: #### I FX, URI, C4, PE, FKLLC, C3, PTHNCA #### [address] [address] [place]: Rodrick Jones MD Phosphorus, Inorg. 3.9 mg/dL Normal 2.5-4.5 [facility] Comment on above: Performed By: #### I FX, URI, C4, PE, FKLLC, C3, PTHNCA #### [address] [address] [place]: Rodrick Jones MD Potassium [Moles/Vol] 4.4 mmol/L Normal 3.7-5.3 [facility] Comment on above: Result Comment: SPEC IMEN SLIGHTLY HEMOLYZED, RESULTS MAY BE ADVERSELY AFFECTED. Performed By: #### I FX, URI, C4, PE, FKLLC, C3, PTHNCA #### [address] [address] [place]: Rodrick Jones MD Sodium [Moles/Vol] 137 mmol/L Normal 135-144 [facility] Comment on above: Performed By: #### I FX, URI, C4, PE, FKLLC, C3, PTHNCA #### [address] [address] [place]: Rodrick Jones MD Urea nitrogen [Mass/Vol] 30 mg/dL High 8-23 [facility] Comment on above: Performed By: #### I FX, URI, C4, PE, FKLLC, C3, PTHNCA #### [address] [address] [place]: Rodrick Jones MD CBCon 07-17-2022 Erythrocyte distribution width (RBC) [Ratio] 13.2 % Normal 11.8-14.4 [facility] Comment on above: Performed By: #### B MP, CBC #### [address] [address] [place]: Rodrick Jones MD Hematocrit (Bld) [Volume fraction] 34.2 % Low 40.7-50.3 [facility] Comment on above: Performed By: #### B MP, CBC #### [address] [address] [place]: Rodrick Jones MD Hemoglobin (Bld) [Mass/Vol] 11.0 g/dL Low 13.0-17.0 [facility] Comment on above: Performed By: #### B MP, CBC #### [address] [address] [place]: Rodrick Jones MD MCH (RBC) [Entitic mass] 30.6 pg Normal 25.2-33.5 [facility] Comment on above: Performed By: #### B MP, CBC #### [address] [address] [place]: Rodrick Jones MD MCHC (RBC) [Mass/Vol] 32.2 g/dL Normal 28.4-34.8 [facility] Comment on above: Performed By: #### B MP, CBC #### [address] [address] [place]: Rodrick Jones MD MCV (RBC) [Entitic vol] 95.0 fL Normal 82.6-102.9 [facility] Comment on above: Performed By: #### B MP, CBC #### [address] [address] [place]: Rodrick Jones MD NRBC Automated 0.0 per 100 WBC Normal 0.0 [facility] Comment on above: Performed By: #### B MP, CBC #### [address] [address] [place]: Rodrick Jones MD Platelet mean volume (Bld) [Entitic vol] 10.9 fL Normal 8.1-13.5 [facility] Comment on above: Performed By: #### B MP, CBC #### [address] [address] [place]: Rodrick Jones MD Platelets (Bld) [#/Vol] 211 10*3/uL Normal 138-453 [facility] Comment on above: Performed By: #### B MP, CBC #### [address] [address] [place]: Rodrick Jones MD RBC (Bld) [#/Vol] 3.60 10*6/uL Low 4.21-5.77 [facility] Comment on above: Performed By: #### B MP, CBC #### [address] [address] [place]: Rodrick Jones MD WBC (Bld) [#/Vol] 9.7 10*3/uL Normal 3.5-11.3 [facility] Comment on above: Performed By: #### B MP, CBC #### [address] [address] [place]: Rodrick Jones MD Magnesiumon 07-17-2022 Magnesium [Mass/Vol] 1.6 mg/dL Normal 1.6-2.6 [facility] Comment on above: Performed By: #### B MP, CBC #### [address] [address] [place]: Rodrick Jones MD Renal Function Panelon 07-17 Albumin [Mass/Vol] 3.7 g/dL Normal 3.5-5.2 [facility] Comment on above: Performed By: #### B MP, CBC #### [address] [address] [place]: Rodrick Jones MD Anion gap [Moles/Vol] 13 mmol/L Normal 9-17 [facility] Comment on above: Performed By: #### B MP, CBC #### [address] [address] [place]: Rodrick Jones MD Calcium [Mass/Vol] 9.1 mg/dL Normal 8.6-10.4 [facility] Comment on above: Performed By: #### B MP, CBC #### [facility] [address] [place] [address] [place]: Rodrick Jones MD Chloride [Moles/Vol] 96 mmol/L Low 98-107 [facility] Comment on above: Performed By: #### B MP, CBC #### [facility] [address] [place] [address] [place]: Rodrick Jones MD CO2 [Moles/Vol] 28 mmol/L Normal 20-31 [facility] Comment on above: Performed By: #### B MP, CBC #### [address] [address] [place]: Rodrick Jones MD Creatinine [Mass/Vol] 2.91 mg/dL High 0.70-1.20 [facility] Comment on above: Performed By: #### B MP, CBC #### [address] [address] [place]: Rodrick Jones MD GFR/1.73 sq M.predicted among non-blacks MDRD (S/P/Bld) [Vol rate/Area] 24 mL/min/{1.73_m2} Low >60 [facility] Comment on above: Result Comment: These results are not intended for use in patients <18 years of age. eGFR results are calculated without a race factor using the 2020 CKD-EPI equation. Careful clinical correlation is recommended, particularly when comparing to results calculated using previous equations. The CKD-EPI equation is less accurate in patients with extremes of muscle mass, extra-renal metabolism of creatine, excessive creatine ingestion, or following therapy that affects renal tubular secretion. Performed By: #### B MP, CBC #### [facility] [address] [place] [address] [place] [place]: Rodrick Jones MD Glucose [Mass/Vol] 240 mg/dL High 70-99 [facility] Comment on above: Performed By: #### B MP, CBC #### [facility] [address] [place] [address] [place] [place]: Rodrick Jones MD Phosphorus, Inorg. 3.4 mg/dL Normal 2.5-4.5 [facility] Comment on above: Performed By: #### B MP, CBC #### [facility] [address] [place] [address] [place]: Rodrick Jones MD Potassium [Moles/Vol] 3.9 mmol/L Normal 3.7-5.3 [facility] Comment on above: Performed By: #### B MP, CBC #### [facility] [address] [place] [address] [place]: Rodrick Jones MD Sodium [Moles/Vol] 137 mmol/L Normal 135-144 [facility] Comment on above: Performed By: #### B MP, CBC #### [facility] [address] [place] [address] [place] [place]: Rodrick Jones MD Urea nitrogen [Mass/Vol] 25 mg/dL High 8-23 [facility] Comment on above: Performed By: #### B MP, CBC #### [facility] [address] [place] [address] [place]: Rodrick Jones MD CBCon 07-16-2022 Erythrocyte distribution width (RBC) [Ratio] 13.4 % Normal 11.8-14.4 [facility] Comment on above: Performed By: #### B MP, CBC #### [address] [address] [place] [place]: Rodrick Jones MD Hematocrit (Bld) [Volume fraction] 36.2 % Low 40.7-50.3 [facility] Comment on above: Performed By: #### B MP, CBC #### [address] [address] [place] [place]: Rodrick Jones MD Hemoglobin (Bld) [Mass/Vol] 11.3 g/dL Low 13.0-17.0 [facility] Comment on above: Performed By: #### B MP, CBC #### [address] [address] [place] [place]: Rodrick Jones MD MCH (RBC) [Entitic mass] 31.1 pg Normal 25.2-33.5 [facility] Comment on above: Performed By: #### B MP, CBC #### [facility] [address] [place] [address] [place]: Rodrick Jones MD MCHC (RBC) [Mass/Vol] 31.2 g/dL Normal 28.4-34.8 [facility] Comment on above: Performed By: #### B MP, CBC #### [address] [address] [place] [place]: Rodrick Jones MD MCV (RBC) [Entitic vol] 99.7 fL Normal 82.6-102.9 [facility] Comment on above: Performed By: #### B MP, CBC #### [facility] [address] [place] [address] [employer] [place]: Rodrick Jones MD NRBC Automated 0.0 per 100 WBC Normal 0.0 [facility] Comment on above: Performed By: #### B MP, CBC #### [address] [address] [employer] [place]: Rodrick Jones MD Platelet mean volume (Bld) [Entitic vol] 11.1 fL Normal 8.1-13.5 [facility] Comment on above: Performed By: #### B MP, CBC #### [address] [address] [employer] [place]: Rodrick Jones MD Platelets (Bld) [#/Vol] 202 10*3/uL Normal 138-453 [facility] Comment on above: Performed By: #### B MP, CBC #### [address] [address] [employer] [place]: Rodrick Jones MD RBC (Bld) [#/Vol] 3.63 10*6/uL Low 4.21-5.77 [facility] Comment on above: Performed By: #### B MP, CBC #### [address] [address] [employer] [place]: Rodrick Jones MD WBC (Bld) [#/Vol] 9.0 10*3/uL Normal 3.5-11.3 [facility] Comment on above: Performed By: #### B MP, CBC #### [address] [address] [place] [place]: Rodrick Jones MD Cult,Urineon 07-16-2022 Cult,Urine Specimen Description .URINE Culture Nida albicans/dubliniensi s 50 to 100,000 CFU/ML Report Status FINAL 07/16/2022 Normal [facility] Comment on above: Performed By: #### B MP, CBC #### [address] [address] [place]: Rodrick Jones MD Magnesiumon 07-16-2022 Magnesium [Mass/Vol] 2.0 mg/dL Normal 1.6-2.6 [facility] Comment on above: Performed By: #### B MP, CBC #### [facility] [address] [place] [address] [place]: Rodrick Jones MD Renal Function Panelon 07-16 Albumin [Mass/Vol] 3.1 g/dL Low 3.5-5.2 [facility] Comment on above: Performed By: #### B MP, CBC #### [facility] [address] [place] [address] [id number] [employer] [place]: Rodrick Jones MD Anion gap [Moles/Vol] 15 mmol/L Normal 9-17 [facility] Comment on above: Performed By: #### B MP, CBC #### [facility] [address] [place] [address] [employer] [place]: Rodrick Jones MD Calcium [Mass/Vol] 9.2 mg/dL Normal 8.6-10.4 [facility] Comment on above: Performed By: #### B MP, CBC #### [facility] [address] [place] [address] [employer] [place]: Rodrick Jones MD Chloride [Moles/Vol] 102 mmol/L Normal 98-107 [facility] Comment on above: Performed By: #### B MP, CBC #### [facility] [address] [place] [address] [employer] [place]: Rodrick Jones MD CO2 [Moles/Vol] 19 mmol/L Low 20-31 [facility] Comment on above: Performed By: #### B MP, CBC #### [facility] [address] [place] [address] [employer] [place]: Rodrick Jones MD Creatinine [Mass/Vol] 3.48 mg/dL High 0.70-1.20 [facility] Comment on above: Performed By: #### B MP, CBC #### [facility] [address] [place] [address] [employer] [place]: Rodrick Jones MD GFR/1.73 sq M.predicted among non-blacks MDRD (S/P/Bld) [Vol rate/Area] 19 mL/min/{1.73_m2} Low >60 [facility] Comment on above: Result Comment: These results are not intended for use in patients <18 years of age. eGFR results are calculated without a race factor using the 2020 CKD-EPI equation. Careful clinical correlation is recommended, particularly when comparing to results calculated using previous equations. The CKD-EPI equation is less accurate in patients with extremes of muscle mass, extra-renal metabolism of creatine, excessive creatine ingestion, or following therapy that affects renal tubular secretion. Performed By: #### B CECY, CBC #### [facility] [address] [place] [address] [employer] [place]: Rodrick Jones MD Glucose [Mass/Vol] 207 mg/dL High 70-99 [facility] Comment on above: Performed By: #### B MP, CBC #### [facility] [address] [place] [address] [employer] [place]: Rodrick Jones MD Phosphorus, Inorg. 5.4 mg/dL High 2.5-4.5 [facility] Comment on above: Performed By: #### B MP, CBC #### [facility] [address] [place] [address] [employer] [place]: Rodrick Jones MD Potassium [Moles/Vol] 4.8 mmol/L Normal 3.7-5.3 [facility] Comment on above: Result Comment: SPEC IMEN MODERATELY HEMOLYZED, RESULTS MAY BE ADVERSELY AFFECTED ACCEPTED PER HAYDE CHOI Performed By: #### B MP, CBC #### [facility] [address] [place] [address] [employer] [place]: Rodrick Jones MD Sodium [Moles/Vol] 136 mmol/L Normal 135-144 [facility] Comment on above: Performed By: #### B MP, CBC #### [facility] [address] [place] [address] [employer] [place]: Rodrick Joens MD Urea nitrogen [Mass/Vol] 35 mg/dL High 8-23 [facility] Comment on above: Performed By: #### B MP, CBC #### [facility] [address] [place] [address] [employer] [place]: Rodrick Jones MD Brain Natri. Peptideon 07-15 Natriuretic peptide B (Bld) [Mass/Vol] 368 pg/mL High <300 [facility] Comment on above: Result Comment: An age-independent cutoff point of 300 pg/ml has a 98% negative predictive value excluding acute heart failure. Performed By: #### B MP, CBC #### [facility] [address] [place] [address] [employer] [place]: Rodrick Jones MD CT ABDOMEN PELVIS WO CONTRAS Ton 07-15-2022 CT ABDOMEN PELVIS WO CONTRAST EXAMINATION: CT OF THE ABDOMEN AND PELVIS WITHOUT CONTRAST 07/15/2022 10:14 am TECHNIQUE: CT of the abdomen and pelvis was performed without the administration of intravenous contrast. Multiplanar reformatted images are provided for review. Automated exposure control, iterative reconstruction, and/or weight based adjustment of the mA/kV was utilized to reduce the radiation dose to as low as reasonably achievable. COMPARISON: CT 06/20/2022 HISTORY: ORDERING SYSTEM PROVIDED HISTORY: eval obst uropathy TECHNOLOGIST PROVIDED HISTORY: eval obst uropathy Reason for Exam: eval obst uropathy FINDINGS: LOWER CHEST: Sequela of old granulomatous disease. No acute findings. KIDNEYS AND URINARY TRACT: Small right kidney with nonobstructing 1.2 cm stone in the renal pelvis and punctate stone in the superior pole. Left double-J ureteral stent has been removed. No hydronephrosis or ureteral stone. A punctate stone is present in the lower pole the left kidney. Left perinephric stranding appears improved. ORGANS: Lack of intravenous contrast limits evaluation of the solid organs and bowel. The liver, pancreas, spleen, and adrenals reveal no acute abnormality. GI/BOWEL: No bowel dilatation or wall thickening. Mild rectal stool burden. PELVIS: No acute findings. PERITONEUM/RETROPERI TONEUM: No lymphadenopathy is noted. No free air or free fluid. The aorta is normal in caliber. BONES/SOFT TISSUES: No acute osseous abnormality is identified. Localized induration of the superficial subcutaneous fat in the right anterior abdomen again noted. *Unless otherwise specified, incidental findings do not require dedicated imaging follow-up. IMPRESSION: 1. Bilateral nonobstructing renal calculi. 2. Left double-J ureteral stent is no longer present and the left ureteral stone is no longer visualized. Interpreted by: Gillian Watters MD Signed by: Gillian Watters MD 07/15/22 Final result Normal [facility] POINT OF CARE GLUCOSEon 04-0 Glucose [Mass/Vol] 158 mg/dL Critically high 74-106 [facility] Comment on above: Performed By: #### C MP, TSH #### [facility] [address] [address] [address] Kalie Rodas Renal Function Panelon 07-15 Albumin [Mass/Vol] 3.4 g/dL Low 3.5-5.2 [facility] Comment on above: Performed By: #### B MP, CBC #### [facility] [place] [address] [employer]: Rodrick Jones MD Anion gap [Moles/Vol] 20 mmol/L High 9-17 [facility] Comment on above: Performed By: #### B MP, CBC #### [facility] [address] [place] [address] [employer] [place]: Rodrick Jones MD Calcium [Mass/Vol] 9.2 mg/dL Normal 8.6-10.4 [facility] Comment on above: Performed By: #### B MP, CBC #### [facility] [address] [place] [address] [employer]: Rodrick Jones MD Chloride [Moles/Vol] 94 mmol/L Low 98-107 [facility] Comment on above: Performed By: #### B MP, CBC #### [facility] [address] [place] [address] [employer]: Rodrick Jones MD CO2 [Moles/Vol] 18 mmol/L Low 20-31 [facility] Comment on above: Performed By: #### B MP, CBC #### [facility] [address] [place] [address] [employer]: Rodrick Jones MD Creatinine [Mass/Vol] 2.93 mg/dL High 0.70-1.20 [facility] Comment on above: Performed By: #### B MP, CBC #### [address] [address] [employer]: Rodrick Jones MD GFR/1.73 sq M.predicted among non-blacks MDRD (S/P/Bld) [Vol rate/Area] 24 mL/min/{1.73_m2} Low >60 [facility] Comment on above: Result Comment: These results are not intended for use in patients <18 years of age. eGFR results are calculated without a race factor using the 2020 CKD-EPI equation. Careful clinical correlation is recommended, particularly when comparing to results calculated using previous equations. The CKD-EPI equation is less accurate in patients with extremes of muscle mass, extra-renal metabolism of creatine, excessive creatine ingestion, or following therapy that affects renal tubular secretion. Performed By: #### B MP, CBC #### [facility] [address] [place] [address] [employer]: Rodrick Jones MD Glucose [Mass/Vol] 159 mg/dL High 70-99 [facility] Comment on above: Performed By: #### B MP, CBC #### [facility] [address] [place] [address] [employer]: Rodrick Jones MD Phosphorus, Inorg. 4.2 mg/dL Normal 2.5-4.5 [facility] Comment on above: Performed By: #### B MP, CBC #### [address] [address] [employer]: Rodrick Jones MD Potassium [Moles/Vol] 3.5 mmol/L Low 3.7-5.3 [facility] Comment on above: Performed By: #### B MP, CBC #### [address] [address] [employer]: Rodrick Jones MD Sodium [Moles/Vol] 132 mmol/L Low 135-144 [facility] Comment on above: Performed By: #### B MP, CBC #### [address] [address] [employer]: Rodrick Jones MD Urea nitrogen [Mass/Vol] 30 mg/dL High 8-23 [facility] Comment on above: Performed By: #### B MP, CBC #### [address] [address] [employer]: Rodrick Jones MD UA w/Reflex Cultureon 2022 Bilirubin, SemiQt,Ur Negative Normal NEG [facility] Comment on above: Performed By: #### B MP, CBC #### [address] [address] [employer]: Rodrick Jones MD Blood, Urine LARGE Abnormal NEG [facility] Comment on above: Performed By: #### B MP, CBC #### [address] [address] [employer]: Rodrick Jones MD Clarity (U) Cloudy Abnormal CLEAR [facility] Comment on above: Performed By: #### B MP, CBC #### [address] [place] [address] [employer]: Rodrick Jones MD Color (U) Yellow Normal YEL [facility] Comment on above: Performed By: #### B MP, CBC #### [facility] [address] [place] [address] [employer]: Rodrick Jones MD Glucose Ql (U) Negative Normal NEG [facility] Comment on above: Performed By: #### B MP, CBC #### [facility] [address] [place] [address] [employer]: Rodrick Jones MD Ketones Ql (U) Negative Normal NEG [facility] Comment on above: Performed By: #### B MP, CBC #### [address] [address] [employer]: Rodrick Jones MD Leukocyte esterase Test strip Ql (U) SMALL Abnormal NEG [facility] Comment on above: Performed By: #### B MP, CBC #### [address] [address] [employer]: Rodrick Jones MD Nitrite,Ur Negative Normal NEG [facility] Comment on above: Performed By: #### B MP, CBC #### [address] [address] [employer]: Rodrick Jones MD PH,Ur 5.0 Normal 5.0-8.0 [facility] Comment on above: Performed By: #### B MP, CBC #### [address] [address] [employer]: Rodrick Jones MD Protein Ql (U) 2+ Abnormal NEG [facility] Comment on above: Performed By: #### B MP, CBC #### [address] [address] [employer]: Rodrick Jones MD Spec. Grabill,Ur 1.014 Normal 1.005-1.030 [facility] Comment on above: Performed By: #### B MP, CBC #### [facility] [address] [place] [address] [employer]: Rodrick Jones MD Urobilinogen,Ur Normal Normal NORM [facility] Comment on above: Performed By: #### B MP, CBC #### [facility] [address] [place] [address] [employer]: Rodrick Jones MD Urinalysis,Microon 3 Casts 5 TO 10 Normal 0-2 [facility] Comment on above: Result Comment: HYAL INE Performed By: #### B MP, CBC #### [address] [address] [employer]: Rodrick Jones MD Epithelial cells LM Ql (Urine sed) 2 TO 5 Normal 0-5 [facility] Comment on above: Performed By: #### B MP, CBC #### [address] [address] [employer]: Rodrick Jones MD Urine RBC's 10 TO 20 Normal 0-2 [facility] Comment on above: Performed By: #### B MP, CBC #### [facility] [address] [place] [address] [employer]: Rodrick Jones MD Urine WBC's 10 TO 20 Normal 0-5 [facility] Comment on above: Performed By: #### B MP, CBC #### [address] [address] [employer]: Rodrick Jones MD Yeast MODERATE Abnormal NONE [facility] Comment on above: Performed By: #### B MP, CBC #### [facility] [address] [place] [address] [employer]: Rodrick Jones MD ACETONE SERUMon 07-14-2022 ACETONE Negative Normal NEGATIVE [facility] Comment on above: Performed By: #### C VDTBH #### [facility] [address] [place] [address] Dr. Kalie Rodas CARDIAC STEVEN 3-6on 3 CK [Catalytic activity/Vol] 91 U/L Normal 39-[address] [facility] Comment on above: Performed By: #### M ALBCRL #### [facility] [address] [place] [address] Dr. Kalie Rodas CK.MB [Mass/Vol] 1.78 ng/mL Normal <=3.60 [facility] Comment on above: Performed By: #### M ALBCRL #### [facility] [address] [place] [address] Dr. Kalie Rodas HSTROP 7.2 pg/mL Normal 4.0-76.[address] [facility] Comment on above: Result Comment: CUT- OFF POINTS HAVE BEEN ESTABLISHED BASED ON THE FOURTH UNIVERSAL DEFINITIONS OF MYOCARDIAL INFARCTION. THE UPPER REFERENCE LIMIT (URL) OF TROPONIN, DEFINED THE 99TH PERCENTILE OF cTnI DISTRIBUTION IN A REFERENCE POPULATION, HAS BEEN CONFIRMED THE DECISION THRESHOLD FOR AL DIAGNOSIS. Performed By: #### M ALBCRL #### [facility] [address] [place] [address] Dr. Kalie Rodas CBC AUTO DIFFon 07-14-2022 BASO # 0.1 103/ul Normal 0.0-0.1 [facility] Comment on above: Performed By: #### C BC #### [facility] [address] [place] [address] Dr. Kalie Rodas Basophils/100 WBC (Bld) 0.7 % Normal 0.2-2.[address] [facility] Comment on above: Performed By: #### C BC #### [facility] [address] [place] [address] Dr. Kalie Rodas EO # 0.4 103/ul Normal 0.0-0.7 [facility] Comment on above: Performed By: #### C BC #### [facility] [address] [address] [address] Kalie Rodas Eosinophils/100 WBC (Bld) 3.7 % Normal 0.9-7.[address] [facility] Comment on above: Performed By: #### C BC #### [facility] [address] [place] [address] Dr. Kalie Rodas Erythrocyte distribution width (RBC) [Ratio] 13.2 % Normal 11.0-15.0 [facility] Comment on above: Performed By: #### C BC #### [facility] [address] [place] [address] Dr. Kalie Rodas Hematocrit (Bld) [Volume fraction] 34.5 % Critically low 42.0-54.0 [facility] Comment on above: Performed By: #### C BC #### [facility] [address] [place] [address] Dr. Kalie Rodas Hemoglobin (Bld) [Mass/Vol] 11.5 g/dL Critically low 14.0-18.0 [facility] Comment on above: Performed By: #### C BC #### [facility] [address] [place] [address] Dr. Kalie Rodas IG # 0.09 10e3/ul Critically high 0.00-0.03 [facility] Comment on above: Performed By: #### C BC #### [facility] [address] [place] [address] Dr. Kalie Rodas IG % 1.0 % Critically high 0.0-0.5 [facility] Comment on above: Performed By: #### C BC #### [facility] [address] [place] [address] Dr. Kalie Rodas LYMPH # 2.8 103/ul Normal 1.2-3.[address] [facility] Comment on above: Performed By: #### C BC #### [facility] [address] [place] [address] Dr. Kalie Rodas Lymphocytes/100 WBC (Bld) 29.8 % Normal 20.5-60.[address] [facility] Comment on above: Performed By: #### C BC #### [facility] [address] [place] [address] Dr. Kalie Rodas MANUAL DIFF REQ NO Normal [facility] Comment on above: Performed By: #### C BC #### [facility] [address] [place] [address] Dr. Kalie Rodas MCH (RBC) [Entitic mass] 30.3 pg Normal 25.9-34.0 [facility] Comment on above: Performed By: #### C BC #### [facility] [address] [place] [address] Dr. Kalie oRdas MCHC (RBC) [Mass/Vol] 33.3 g/dL Normal 29.9-35.[address] [facility] Comment on above: Performed By: #### C BC #### [facility] [address] [place] [address] Dr. Kalie Rodas MCV (RBC) [Entitic vol] 91.0 fL Normal 80.0-94.0 [facility] Comment on above: Performed By: #### C BC #### [facility] [address] [place] [address] Dr. Kalie Rodas MONO # 0.9 103/ul Critically high 0.3-0.8 [facility] Comment on above: Performed By: #### C BC #### [facility] [address] [place] [address] Dr. Kalie Rodas Monocytes/100 WBC (Bld) 9.1 % Normal 1.7-12.[address] [facility] Comment on above: Performed By: #### C BC #### [facility] [address] [place] [address] Dr. Kalie Rodas NEUT # 5.2 103/ul Normal 1.4-6.[address] [facility] Comment on above: Performed By: #### C BC #### [facility] [address] [place] [address] Dr. Kalie Rodas Neutrophils/100 WBC (Bld) 55.7 % Normal 43.0-75.[address] [facility] Comment on above: Performed By: #### C BC #### [facility] [address] [place] [address] Dr. Kalie Rodas Platelet mean volume (Bld) [Entitic vol] 10.5 fL Normal 9.5-13.5 [facility] Comment on above: Performed By: #### C BC #### [facility] [address] [place] [address] Dr. Kalie Rodas PLT 221 103/ul Normal 150-[address] [facility] Comment on above: Performed By: #### C BC #### [facility] [address] [place] [address] Dr. Kalie Rodas RBC 3.79 106/ul Critically low 4.70-6.10 [facility] Comment on above: Performed By: #### C BC #### [facility] [address] [place] [address] Dr. Kalie Rodas WBC 9.4 103/ul Normal 4.0-11.0 [facility] Comment on above: Performed By: #### C BC #### [facility] [address] [place] [address] HEAD WO CONon 07-14-2022 CT HEAD WO CON EXAMINATION: CT HEAD WO CON HISTORY: Syncope COMPARISON: None. TECHNIQUE: Axial CT scans through the head were obtained without IV contrast administration. Dose reduction techniques were achieved by using: automated exposure control and/or adjustment of mA and /or kV according to patient size and/or use of iterative reconstruction technique. FINDINGS: There is no acute intracranial hemorrhage or abnormal extra-axial fluid collection. No mass effect or midline shift is seen. There is no evidence of large acute territorial infarction. There is no hydrocephalus. To the limit of CT, the posterior fossa appears unremarkable. The calvaria and extra cranial soft tissues are unremarkable. The visualized orbits show no abnormal mass. The visualized paranasal sinuses show no air-fluid level. Mastoid air cells are clear. IMPRESSION: No acute intracranial abnormality. Electronically authenticated by: [facility] Date: 2022-07-14 18:[address] [facility] Covid-19 PCR (CVDTB)on SARS-CoV-2 (COVID-19) RNA BENTLEY+probe Ql (Unsp spec) Not detected Normal NOT DETECTED [facility] Comment on above: Result Comment: When diagnostic testing is negative, the possibility of a false negative should be considered in the context of a patient's recent exposures and the presence of clinical signs and symptoms consistent with SARS-CoV-2. This test is not yet approved or cleared by the [place] FDA. When there are no FDA-approved or cleared tests available, and other criteria are met, FDA can make tests available under an emergency access mechanism called an Emergency Use Authorization (EUA). The EUA for this test is supported by the [place] of Health and Human Service's declaration that circumstances exist to justify the emergency use of in vitro diagnostics for the detection and/or diagnosis of the virus that causes COVID-19. This EUA will remain in effect for the duration of the COVID-19 declaration justifying emergency of IVDs, unless it is terminated or revoked by the FDA (after which the test may no longer be used). Performed By: #### C VDTB #### [facility] [address] [place] [address] Dr. Kalie Rodas ER URINE PROFILEon 3 Bilirubin Ql (U) Negative Normal NEGATIVE [facility] Comment on above: Performed By: #### C BC #### [facility] [address] [place] [address] Dr. Kalie Rodas Clarity (U) CLOUDY Abnormal CLEAR [facility] Comment on above: Performed By: #### C BC #### [facility] [address] [place] [address] Dr. Kalie Rodas Color (U) LT. YELLOW Normal YELLOW [facility] Comment on above: Performed By: #### C BC #### [facility] [address] [place] [address] Dr. Kalie Rodas ERUAHD A micrscopic examination will be performed if indicated. Normal [facility] Comment on above: Performed By: #### C BC #### [facility] [address] [place] [address] Dr. Kalie Rodas Glucose Ql (U) Negative Normal NEGATIVE [facility] Comment on above: Performed By: #### C BC #### [facility] [address] [place] [address] Dr. Kalie Rodas Hemoglobin Ql (U) LARGE Abnormal NEGATIVE [facility] Comment on above: Performed By: #### C BC #### [facility] [address] [place] [address] Dr. Kalie Rodas Ketones Ql (U) Negative Normal NEGATIVE [facility] Comment on above: Performed By: #### C BC #### [facility] [address] [place] [address] Dr. Kalie Rodas LEUKOCYTES MODERATE Abnormal NEGATIVE [facility] Comment on above: Performed By: #### C BC #### [facility] [address] [place] [address] Dr. Klaie Rodas Nitrite Ql (U) Negative Normal NEGATIVE [facility] Comment on above: Performed By: #### C BC #### [facility] [address] [place] [address] Dr. Kalie Rodas pH (U) 5.5 [pH] Normal 5-9 [facility] Comment on above: Performed By: #### C BC #### [facility] [address] [place] [address] Dr. Kalie Rodas Protein (U) [Mass/Vol] 100 mg/dL Abnormal NEGAT HARISH/ TRACE [facility] Comment on above: Performed By: #### C BC #### [facility] [address] [place] [address] Dr. Kalie Rodas SPEC GRAVITY 1.025 Normal 1.005-<=1.025 [facility] Comment on above: Performed By: #### C BC #### [facility] [address] [place] [address] Dr. Kalie Rodas UR MICRO IND INDICATED Normal [facility] Comment on above: Performed By: #### C BC #### [facility] [address] [place] [address] Dr. Kalie Rodas Urobilinogen Qn (U) 0.2 {Naresh'U}/dL Normal 0.2 - 1. 0 [facility] Comment on above: Performed By: #### C BC #### [facility] [address] [place] [address] Dr. Kalie Rodas LACTATE/LACTIC ACIDon 2022 Lactate [Moles/Vol] 1.5 mmol/L Normal 0.4-2.0 [facility] Comment on above: Performed By: #### L ACT #### [facility] [address] [place] [address] Dr. Kalie Rodas Lactate [Moles/Vol] 2.2 mmol/L Critically high 0.4-2.0 [facility] [facility] Comment on above: Performed By: #### C MP, TSH #### [facility] [address] [place] [address] Dr. Kalie Rodas POINT OF CARE GLUCOSEon Glucose [Mass/Vol] 189 mg/dL Critically high 74-106 [facility] Comment on above: Performed By: #### M ALBCRL #### [facility] [address] [place] [address] Dr. Kalie Rodas PROF 14(COMP METB)on 023 Albumin [Mass/Vol] 3.2 g/dL Critically low 3.4-5.0 [facility] Comment on above: Performed By: #### C BC #### [facility] [address] [place] [address] Dr. Kalie Rodas Albumin/Globulin [Mass ratio] 0.6 {ratio} Normal [facility] Comment on above: Performed By: #### C BC #### [facility] [address] [place] [address] Dr. Kalie Rodas ALP [Catalytic activity/Vol] 124 U/L Critically high 46-116 [facility] Comment on above: Performed By: #### C BC #### [facility] [address] [place] [address] Dr. Kalie Rodas ALT [Catalytic activity/Vol] 31 U/L Normal 16-63 [facility] Comment on above: Performed By: #### C BC #### [facility] [address] [place] [address] Dr. Kalie Rodas Anion gap [Moles/Vol] 14.3 mmol/L Normal [facility] Comment on above: Performed By: #### C BC #### [facility] [address] [address] [address] Kalie Rodas AST [Catalytic activity/Vol] 30 U/L Normal 15-37 [facility] Comment on above: Performed By: #### C BC #### [facility] [address] [address] [address] Kalie Rodas Bilirubin [Mass/Vol] 0.6 mg/dL Normal 0.2-1.0 [facility] Comment on above: Performed By: #### C BC #### [facility] [address] [address] [address] Kalie Rodas Calcium [Mass/Vol] 8.9 mg/dL Normal 8.5-10.1 [facility] Comment on above: Performed By: #### C BC #### [facility] [address] [place] [address] Dr. Kalie Rodas Chloride [Moles/Vol] 98 mmol/L Normal 98-107 [facility] Comment on above: Performed By: #### C BC #### [facility] [address] [address] [address] Kalie Rodas CO2 [Moles/Vol] 25.2 mmol/L Normal 21.0-32.0 [facility] Comment on above: Performed By: #### C BC #### [facility] [address] [address] [address] Kalie Rodas Creatinine [Mass/Vol] 2.52 mg/dL Critically high 0.70-1.30 [facility] Comment on above: Performed By: #### C BC #### [facility] [address] [address] [address] Kalie Rodas EGFR-AF PUERTO RICAN 32 mL/min/1.73m2 Critically low >=60 [facility] Comment on above: Performed By: #### C BC #### [facility] [address] [address] [address] Kalie Rodas EGFR-NON AF PUERTO RICAN 26 mL/min/1.73m2 Critically low >=60 [facility] Comment on above: Performed By: #### C BC #### [facility] [address] [address] [address] Kalie Rodas Globulin (S) [Mass/Vol] 5.1 g/dL Normal [facility] Comment on above: Performed By: #### C BC #### [facility] [address] [address] [address] Kalie Rodas Glucose [Mass/Vol] 167 mg/dL Critically high 74-106 [facility] Comment on above: Performed By: #### C BC #### [facility] [address] [place] [address] Dr. Kalie Rodas Potassium [Moles/Vol] 3.5 mmol/L Normal 3.5-5.1 [facility] Comment on above: Performed By: #### C BC #### [facility] [address] [place] [address] Dr. Kalie Rodas Protein [Mass/Vol] 8.3 g/dL Critically high 6.4-8.2 [facility] Comment on above: Performed By: #### C BC #### [facility] [address] [place] [address] Dr. Kalie Rodas Sodium [Moles/Vol] 134 mmol/L Critically low 136-145 [facility] Comment on above: Performed By: #### C BC #### [facility] [address] [place] [address] Dr. Kalie Rodas Urea nitrogen [Mass/Vol] 28.0 mg/dL Critically high 7.0-18.0 [facility] Comment on above: Performed By: #### C BC #### [facility] [address] [place] [address] Dr. Kalie Rodas Urea nitrogen/Creatinine [Mass ratio] 11.1 mg/mg [facility] Comment on above: Performed By: #### C BC #### [facility] [address] [place] [address] Dr. Kalie Rodas PROTIMEon 07-14-2022 INR Coag (PPP) [Relative time] 1.03 {INR} Normal [facility] Comment on above: Performed By: #### M ALBCRL #### [facility] [address] [address] [address] Kalie Rodas INR GUIDELINES SEE BELOW Normal [facility] Comment on above: Result Comment: DENNIS RED INR: 2.0 - 3.0 CONDITIONS NOT LISTED BELOW 2.5 - 3.5 FOR PROSTHETIC HEART VALVE REPLACEMENT 2.5 - 3.5 RECURRENT THROMBOSIS Performed By: #### M ALBCRL #### [facility] [address] [address] [address] Kalie Rodas PT Coag (PPP) [Time] 10.9 s Normal 9.0-11.[address] [facility] Comment on above: Performed By: #### M ALBCRL #### [facility] [address] [place] [address] Dr. Kalie Rodas PTTon 07-14-2022 aPTT Coag (Bld) [Time] 43.5 s Critically high 22.3-36. [address] [facility] Comment on above: Performed By: #### M ALBCRL #### [facility] [address] [place] [address] Dr. Kalie Rodas TROPONIN, HIGH SENSITIVITYon 07-14-2022 HSTROP 6.7 pg/mL Normal 4.0-76.[address] [facility] Comment on above: Result Comment: CUT- OFF POINTS HAVE BEEN ESTABLISHED BASED ON THE FOURTH UNIVERSAL DEFINITIONS OF MYOCARDIAL INFARCTION. THE UPPER REFERENCE LIMIT (URL) OF TROPONIN, DEFINED THE 99TH PERCENTILE OF cTnI DISTRIBUTION IN A REFERENCE POPULATION, HAS BEEN CONFIRMED THE DECISION THRESHOLD FOR AL DIAGNOSIS. Performed By: #### C BC #### [facility] [address] [place] [address] Dr. Kalie Rodas TSHon 07-14-2022 TSH 1.760 uIU/mL Normal 0.358-3.740 [facility] Comment on above: Performed By: #### C MP, HSTROPN, TSH #### [facility] [address] [place] [address] Dr. Kalie Rodas URINE MICROSCOPIC ONLYon BACTERIA TRACE Abnormal NONE SEEN [facility] Comment on above: Performed By: #### C BC #### [facility] [address] [place] [address] Dr. Kalie Rodas Bacteria identified Cx Nom (U) INDICATED Normal [facility] Comment on above: Performed By: #### C BC #### [facility] [address] [place] [address] Dr. Kalie Rodas CAST NONE SEEN Normal NONE SEEN [facility] Comment on above: Performed By: #### C BC #### [facility] [address] [place] [address] Dr. Kalie Rodas Crystals LM Nom (Urine sed) NONE SEEN Normal NONE SEEN [facility] Comment on above: Performed By: #### C BC #### [facility] [address] [place] [address] Dr. Kalie Rodas Epithelial cells LM Ql (Urine sed) MANY Abnormal NONE SEEN /RARE [facility] Comment on above: Performed By: #### C BC #### [facility] [address] [place] [address] Dr. Kalie Rodas MUCOUS NONE SEEN Normal NONE SEEN [facility] Comment on above: Performed By: #### C BC #### [facility] [address] [place] [address] Dr. Kalie Rodas RBC 0-2 Normal 0-[address] [facility] Comment on above: Performed By: #### C BC #### [facility] [address] [place] [address] Dr. Kalie Rodas WBC 10-20 Abnormal NONE SEEN [facility] Comment on above: Performed By: #### C BC #### [facility] [address] [place] [address] Dr. Kalie Rodas XR CHEST 1 Von 07-14-2022 XR CHEST 1 V EXAMINATION: XR CHEST 1 V HISTORY: Dizziness after dialysis. COMPARISON: None. TECHNIQUE: Portable chest FINDINGS: The lung parenchyma is free of consolidation or infiltrate. No pneumothorax or pleural effusion. Right sided central venous access cath. The cardiac, mediastinal and hilar contours are normal. The visualized osseous structures exhibit no gross abnormality. IMPRESSION: No acute cardiopulmonary abnormality. Electronically authenticated by: MIRELA HUFFMAN Date: 2022-07-14 19:[address] [facility] Basic Metab w/rfx MGon 07-08 Anion gap [Moles/Vol] 13 mmol/L Normal 9-17 [facility] Comment on above: Performed By: #### C DP, BMPX #### [facility] [address] [facility] [place] [address] [employer]: You Bro DO Calcium [Mass/Vol] 9.3 mg/dL Normal 8.6-10.4 [facility] Comment on above: Performed By: #### C DP, BMPX #### [facility] [address] [facility] [place] [address] [employer]: You Bro DO Chloride [Moles/Vol] 100 mmol/L Normal 98-107 [facility] Comment on above: Performed By: #### C DP, BMPX #### [facility] [address] [facility] [place] [address] [employer]: You Bro DO CO2 [Moles/Vol] 23 mmol/L Normal 20-31 [facility] Comment on above: Performed By: #### C DP, BMPX #### [facility] [address] [facility] [place] [address] [employer]: You Bro DO Creatinine [Mass/Vol] 3.50 mg/dL High 0.70-1.20 [facility] Comment on above: Performed By: #### C DP, BMPX #### [facility] [address] [facility] [place] [address] [employer]: You Bro DO GFR/1.73 sq M.predicted among non-blacks MDRD (S/P/Bld) [Vol rate/Area] 19 mL/min/{1.73_m2} Low >60 [facility] Comment on above: Result Comment: These results are not intended for use in patients <18 years of age. eGFR results are calculated without a race factor using the 2020 CKD-EPI equation. Careful clinical correlation is recommended, particularly when comparing to results calculated using previous equations. The CKD-EPI equation is less accurate in patients with extremes of muscle mass, extra-renal metabolism of creatine, excessive creatine ingestion, or following therapy that affects renal tubular secretion. Performed By: #### C DP, BMPX #### [facility] [place] [address] [employer]: You Bro DO Glucose [Mass/Vol] 176 mg/dL High 70-99 [facility] Comment on above: Performed By: #### C GAYLE, BMPX #### [facility] [address] [place] [address] [employer]: You Bro DO Potassium [Moles/Vol] 4.7 mmol/L Normal 3.7-5.3 [facility] Comment on above: Performed By: #### C GAYLE, BMPX #### [facility] [address] [place] [address] [employer]: You Bro DO Sodium [Moles/Vol] 136 mmol/L Normal 135-144 [facility] Comment on above: Performed By: #### C GAYLE, BMPX #### [facility] [address] [place] [address] [employer]: You Bro DO Urea nitrogen [Mass/Vol] 56 mg/dL High 8-23 [facility] Comment on above: Performed By: #### C GAYLE, BMPX #### [facility] [address] [place] [address] [employer]: You Bro DO Basic Metabolic Panel w/ Ref artis to MGon 07-08-2022 Anion gap [Moles/Vol] 13 mmol/L 9 - 17 mmol/L [facility] Calcium [Mass/Vol] 9.3 mg/dL 8.6 - 10. 4 mg/dL [facility] Chloride [Moles/Vol] 100 mmol/L 98 - 10 7 mmol/L [facility] CO2 [Moles/Vol] 23 mmol/L 20 - 31 mmol/L [facility] Creatinine [Mass/Vol] 3.5 mg/dL High 0.70 - 1.20 mg/dL [facility] GFR/1.73 sq M.predicted MDRD (S/P/Bld) [Vol rate/Area] 19 mL/min/{1.73_m2} Low - PINF [facility] Comment on above: These results are not intended for use in patients <18 years of age. eGFR results are calculated without a race factor using the 2020 CKD-EPI equation. Careful clinical correlation is recommended, particularly when comparing to results calculated using previous equations. The CKD-EPI equation is less accurate in patients with extremes of muscle mass, extra-renal metabolism of creatine, excessive creatine ingestion, or following therapy that affects renal tubular secretion. Glucose [Mass/Vol] 176 mg/dL High 70 - 99 mg/dL [facility] Interpretation and review of laboratory results Abnormal [facility] Potassium [Moles/Vol] 4.7 mmol/L 3.7 - 5.3 mmol/L [facility] Sodium [Moles/Vol] 136 mmol/L 135 - 144 mmol/L [facility] Urea nitrogen [Mass/Vol] 56 mg/dL High 8 - 23 mg/dL [facility] CBC auto differentialon 03-3 Absolute Eos # 0.30 [place] [facility] Absolute Lymph # 2.40 [facility] Absolute [place] # 0.80 [facility] Basophils (Bld) [#/Vol] 0.10 10*3/uL [facility] Basophils/100 WBC (Bld) 1 % 0 - 2 % [facility] Eosinophils/100 WBC (Bld) 4 % 0 - 4 % [facility] Hematocrit (Bld) [Volume fraction] 34.0 % Low 41 - 53 % [facility] Hemoglobin (Bld) [Mass/Vol] 11.2 g/dL Low 13.5 - 17.5 g/dL [facility] Interpretation and review of laboratory results Abnormal [facility] Lymphocytes/100 WBC (Bld) 29 % 24 - 44 % [facility] MCH (RBC) [Entitic mass] 30.9 pg 26 - 34 pg [facility] MCHC (RBC) [Mass/Vol] 32.8 g/dL 31 - 37 g/dL [facility] MCV (RBC) [Entitic vol] 94.3 fL 80 - 100 fL [facility] Monocytes/100 WBC (Bld) 9 % High 1 - 7 % [facility] Platelet distribution width (Bld) [Ratio] 14.2 % 11.5 - 14.9 % [facility] Platelet mean volume (Bld) [Entitic vol] 9.2 fL 6.0 - 12.0 fL [facility] Platelets (Bld) [#/Vol] 150 10*3/uL [facility] RBC (Bld) [#/Vol] 3.61 10*6/uL Low 4.5 - 5.9 m/uL [facility] Segmented neutrophils/100 WBC (Bld) 57 % 36 - 66 % [facility] Segs Absolute 4.80 [facility] WBC (Bld) [#/Vol] 8.4 10*3/uL [facility] CBC with Diffon 07-08-2022 Abs. Basophil 0.10 k/uL Normal 0.0-0.2 [facility] Comment on above: Performed By: #### C DP, BMPX #### [facility] [address] [place] [address] [employer]: You Bro DO Abs.Neutrophil (Seg) 4.80 k/uL Normal 1.3-9.1 [facility] Comment on above: Performed By: #### C DP, BMPX #### [facility] [address] [place] [address] [employer]: You Bro DO Basophils/100 WBC (Bld) 1 % Normal 0-2 [facility] Comment on above: Performed By: #### C DP, BMPX #### [facility] [place] [address] [employer]: You Bro DO Eosinophils (Bld) [#/Vol] 0.30 10*3/uL Normal 0.0-0.4 [facility] Comment on above: Performed By: #### C DP, BMPX #### [facility] [address] [place] [address] [employer]: You Bro DO Eosinophils/100 WBC (Bld) 4 % Normal 0-4 [facility] Comment on above: Performed By: #### C DP, BMPX #### [facility] [address] [place] [phone] [employer]: You Bro DO Erythrocyte distribution width (RBC) [Ratio] 14.2 % Normal 11.5-14.9 [facility] Comment on above: Performed By: #### C DP, BMPX #### [facility] [address] [place] [address] [employer]: You Bro DO Hematocrit (Bld) [Volume fraction] 34.0 % Low 41-53 [facility] Comment on above: Performed By: #### C DP, BMPX #### [facility] [address] [place] [address] [employer]: You Bro DO Hemoglobin (Bld) [Mass/Vol] 11.2 g/dL Low 13.5-17.5 [facility] Comment on above: Performed By: #### C DP, BMPX #### [facility] [address] [place] [address] [employer]: You Bro DO Lymphocytes (Bld) [#/Vol] 2.40 10*3/uL Normal 1.0-4.8 [facility] Comment on above: Performed By: #### C DP, BMPX #### [facility] [place] [address] [employer]: You Bro DO Lymphocytes/100 WBC (Bld) 29 % Normal 24-44 [facility] Comment on above: Performed By: #### C DP, BMPX #### [facility] [address] [place] [address] [employer]: You Bro DO MCH (RBC) [Entitic mass] 30.9 pg Normal 26-34 [facility] Comment on above: Performed By: #### C DP, BMPX #### [facility] [address] [place] [address] [employer]: You Bro DO MCHC (RBC) [Mass/Vol] 32.8 g/dL Normal 31-37 [facility] Comment on above: Performed By: #### C GAYLE, BMPX #### [facility] [address] [place] [address] [employer]: You Bro DO MCV (RBC) [Entitic vol] 94.3 fL Normal 80-100 [facility] Comment on above: Performed By: #### C GAYLE, BMPX #### [facility] [address] [place] [address] [employer]: You Bro DO Monocytes (Bld) [#/Vol] 0.80 10*3/uL Normal 0.1-1.3 [facility] Comment on above: Performed By: #### C DP, BMPX #### [facility] [address] [place] [address] [employer]: You Bro DO Monocytes/100 WBC (Bld) 9 % High 1-7 [facility] Comment on above: Performed By: #### C DP, BMPX #### [facility] [place] [address] [employer]: You Bro DO Neutrophil (Seg) 57 % Normal 36-66 [facility] Comment on above: Performed By: #### C DP, BMPX #### [facility] [address] [place] [phone] [employer]: You Bro DO Platelet mean volume (Bld) [Entitic vol] 9.2 fL Normal 6.0-12.0 [facility] Comment on above: Performed By: #### C DP, BMPX #### [facility] [address] [place] [phone] [employer]: You Bro DO Platelets (Bld) [#/Vol] 150 10*3/uL Normal 150-450 [facility] Comment on above: Performed By: #### C GAYLE, BMPX #### [facility] [address] [place] [address] [employer]: You Bro DO RBC (Bld) [#/Vol] 3.61 10*6/uL Low 4.5-5.9 [facility] Comment on above: Performed By: #### C DP, BMPX #### [facility] [address] [place] [address] [employer]: You Bro DO WBC (Bld) [#/Vol] 8.4 10*3/uL Normal 3.5-11.0 [facility] Comment on above: Performed By: #### C DP, BMPX #### [facility] [address] [place] [address] [employer]: You Bro DO POC Glucose Fingerstickon Glucose [Mass/Vol] 267 mg/dL High 75 - 110 mg/dL [facility] Interpretation and review of laboratory results Abnormal [facility] Glucose [Mass/Vol] 160 mg/dL High 75 - 110 mg/dL [facility] Interpretation and review of laboratory results Abnormal [facility] POC Glucose Fingerstickon Glucose [Mass/Vol] 210 mg/dL High 75 - 110 mg/dL [facility] Interpretation and review of laboratory results Abnormal [facility] Glucose [Mass/Vol] 173 mg/dL High 75 - 110 mg/dL [facility] Interpretation and review of laboratory results Abnormal [facility] Glucose [Mass/Vol] 247 mg/dL High 75 - 110 mg/dL [facility] Interpretation and review of laboratory results Abnormal [facility] Glucose [Mass/Vol] 158 mg/dL High 75 - 110 mg/dL [facility] Interpretation and review of laboratory results Abnormal [facility] Basic Metab w/rfx MGon 07-06 Anion gap [Moles/Vol] 15 mmol/L Normal 9-17 [facility] Comment on above: Performed By: #### B MPX #### [facility] [address] [place] [address] [employer]: You Bro DO Calcium [Mass/Vol] 9.4 mg/dL Normal 8.6-10.4 [facility] Comment on above: Performed By: #### B MPX #### [facility] [address] [place] [address] [employer]: You Bro DO Chloride [Moles/Vol] 101 mmol/L Normal 98-107 [facility] Comment on above: Performed By: #### B MPX #### [facility] [address] [place] [address] [employer]: You Bro DO CO2 [Moles/Vol] 22 mmol/L Normal 20-31 [facility] Comment on above: Performed By: #### B MPX #### [facility] [address] [place] [address] [employer]: You Bro DO Creatinine [Mass/Vol] 4.01 mg/dL High 0.70-1.20 [facility] Comment on above: Performed By: #### B MPX #### [facility] [address] [facility] [place] [address] [employer]: You Bro DO GFR/1.73 sq M.predicted among non-blacks MDRD (S/P/Bld) [Vol rate/Area] 16 mL/min/{1.73_m2} Low >60 [facility] Comment on above: Result Comment: These results are not intended for use in patients <18 years of age. eGFR results are calculated without a race factor using the 2020 CKD-EPI equation. Careful clinical correlation is recommended, particularly when comparing to results calculated using previous equations. The CKD-EPI equation is less accurate in patients with extremes of muscle mass, extra-renal metabolism of creatine, excessive creatine ingestion, or following therapy that affects renal tubular secretion. Performed By: #### B MPX #### [facility] [address] [facility] [place] [address] [employer]: You Bro DO Glucose [Mass/Vol] 191 mg/dL High 70-99 [facility] Comment on above: Performed By: #### B MPX #### [facility] [facility] [place] [address] [employer]: You Bro DO Potassium [Moles/Vol] 4.6 mmol/L Normal 3.7-5.3 [facility] Comment on above: Performed By: #### B MPX #### [facility] [address] [facility] [place] [address] [employer]: You Bro DO Sodium [Moles/Vol] 138 mmol/L Normal 135-144 [facility] Comment on above: Performed By: #### B MPX #### [facility] [address] [facility] [place] [address] [employer]: You Bro DO Urea nitrogen [Mass/Vol] 66 mg/dL High 8-23 [facility] Comment on above: Performed By: #### B MPX #### [facility] [address] [facility] [place] [address] [employer]: You Bro DO Basic Metabolic Panel w/ Ref artis to MG 07-06-2022 Anion gap [Moles/Vol] 15 mmol/L 9 - 17 mmol/L [facility] [employer] Calcium [Mass/Vol] 9.4 mg/dL 8.6 - 10. 4 mg/dL [facility] Chloride [Moles/Vol] 101 mmol/L 98 - 10 7 mmol/L [facility] CO2 [Moles/Vol] 22 mmol/L 20 - 31 mmol/L [facility] Creatinine [Mass/Vol] 4.01 mg/dL High 0.70 - 1.20 mg/dL [facility] GFR/1.73 sq M.predicted MDRD (S/P/Bld) [Vol rate/Area] 16 mL/min/{1.73_m2} Low - PINF [facility] Comment on above: These results are not intended for use in patients <18 years of age. eGFR results are calculated without a race factor using the 2020 CKD-EPI equation. Careful clinical correlation is recommended, particularly when comparing to results calculated using previous equations. The CKD-EPI equation is less accurate in patients with extremes of muscle mass, extra-renal metabolism of creatine, excessive creatine ingestion, or following therapy that affects renal tubular secretion. Glucose [Mass/Vol] 191 mg/dL High 70 - 99 mg/dL [facility] [employer] Interpretation and review of laboratory results Abnormal [facility] Potassium [Moles/Vol] 4.6 mmol/L 3.7 - 5.3 mmol/L [facility] Sodium [Moles/Vol] 138 mmol/L 135 - 144 mmol/L [facility] Urea nitrogen [Mass/Vol] 66 mg/dL High 8 - 23 mg/dL [facility] Glucose Fingerstickon Glucose [Mass/Vol] 261 mg/dL High 75 - 110 mg/dL [facility] Interpretation and review of laboratory results Abnormal [facility] Glucose [Mass/Vol] 181 mg/dL High 75 - 110 mg/dL [facility] Interpretation and review of laboratory results Abnormal [facility] Glucose [Mass/Vol] 228 mg/dL High 75 - 110 mg/dL [facility] Interpretation and review of laboratory results Abnormal [facility] Glucose [Mass/Vol] 163 mg/dL High 75 - 110 mg/dL [facility] Interpretation and review of laboratory results Abnormal [facility] Glucose Fingerstickon Glucose [Mass/Vol] 239 mg/dL High 75 - 110 mg/dL [facility] Interpretation and review of laboratory results Abnormal [facility] Glucose [Mass/Vol] 191 mg/dL High 75 - 110 mg/dL [facility] Interpretation and review of laboratory results Abnormal [facility] Glucose [Mass/Vol] 213 mg/dL High 75 - 110 mg/dL [facility] Interpretation and review of laboratory results Abnormal [facility] Glucose [Mass/Vol] 184 mg/dL High 75 - 110 mg/dL [facility] Interpretation and review of laboratory results Abnormal [facility] Glucose Fingerstickon Glucose [Mass/Vol] 215 mg/dL High 75 - 110 mg/dL [facility] Interpretation and review of laboratory results Abnormal [facility] Glucose [Mass/Vol] 172 mg/dL High 75 - 110 mg/dL [facility] Interpretation and review of laboratory results Abnormal [facility] Glucose [Mass/Vol] 276 mg/dL High 75 - 110 mg/dL [facility] Interpretation and review of laboratory results Abnormal [facility] Glucose [Mass/Vol] 176 mg/dL High 75 - 110 mg/dL [facility] Interpretation and review of laboratory results Abnormal [facility] Basic Metabolic Panelon - Anion gap [Moles/Vol] 13 mmol/L 9 - 17 mmol/L [facility] Calcium [Mass/Vol] 9.5 mg/dL 8.6 - 10. 4 mg/dL [facility] Chloride [Moles/Vol] 100 mmol/L 98 - 10 7 mmol/L [facility] CO2 [Moles/Vol] 25 mmol/L 20 - 31 mmol/L [facility] Creatinine [Mass/Vol] 3.55 mg/dL High 0.70 - 1.20 mg/dL [facility] GFR/1.73 sq M.predicted MDRD (S/P/Bld) [Vol rate/Area] 19 mL/min/{1.73_m2} Low - PINF [facility] Comment on above: These results are not intended for use in patients <18 years of age. eGFR results are calculated without a race factor using the 2020 CKD-EPI equation. Careful clinical correlation is recommended, particularly when comparing to results calculated using previous equations. The CKD-EPI equation is less accurate in patients with extremes of muscle mass, extra-renal metabolism of creatine, excessive creatine ingestion, or following therapy that affects renal tubular secretion. Glucose [Mass/Vol] 159 mg/dL High 70 - 99 mg/dL [facility] Interpretation and review of laboratory results Abnormal [facility] Potassium [Moles/Vol] 4.3 mmol/L 3.7 - 5.3 mmol/L [facility] Sodium [Moles/Vol] 138 mmol/L 135 - 144 mmol/L [facility] Urea nitrogen [Mass/Vol] 47 mg/dL High 8 - 23 mg/dL [facility] Basic Metabolic Profon 07-03 Anion gap [Moles/Vol] 13 mmol/L Normal 9-17 [facility] Comment on above: Performed By: #### BARBARA Tan, CDP #### [facility] [address] [place] [address] [employer]: You Bro DO Calcium [Mass/Vol] 9.5 mg/dL Normal 8.6-10.4 [facility] Comment on above: Performed By: #### BARBARA Tan, CDP #### [facility] [address] [facility] [place] [address] [employer]: You Bro DO Chloride [Moles/Vol] 100 mmol/L Normal 98-107 [facility] Comment on above: Performed By: #### BARBARA Tan, CDP #### [facility] [address] [facility] [place] [address] [employer]: You Bro DO CO2 [Moles/Vol] 25 mmol/L Normal 20-31 [facility] Comment on above: Performed By: #### BARBARA Tan, CDP #### [facility] [address] [facility] [place] [address] [employer]: You Bro DO Creatinine [Mass/Vol] 3.55 mg/dL High 0.70-1.20 [facility] Comment on above: Performed By: #### BARBARA Tan, CDP #### [facility] [address] [place] [address] [employer]: You Bro DO GFR/1.73 sq M.predicted among non-blacks MDRD (S/P/Bld) [Vol rate/Area] 19 mL/min/{1.73_m2} Low >60 [facility] Comment on above: Result Comment: These results are not intended for use in patients <18 years of age. eGFR results are calculated without a race factor using the 2020 CKD-EPI equation. Careful clinical correlation is recommended, particularly when comparing to results calculated using previous equations. The CKD-EPI equation is less accurate in patients with extremes of muscle mass, extra-renal metabolism of creatine, excessive creatine ingestion, or following therapy that affects renal tubular secretion. Performed By: #### BARBARA Tan, CDP #### [facility] [address] [place] [address] [employer]: You Bro DO Glucose [Mass/Vol] 159 mg/dL High 70-99 [facility] Comment on above: Performed By: #### BARBAAR Tan, CDP #### [facility] [address] [place] [address] [employer]: You Bro DO Potassium [Moles/Vol] 4.3 mmol/L Normal 3.7-5.3 [facility] Comment on above: Performed By: #### BARBARA Tan, CDP #### [facility] [address] [place] [address] [employer]: You Bro DO Sodium [Moles/Vol] 138 mmol/L Normal 135-144 [facility] Comment on above: Performed By: #### BARBARA Tan, CDP #### [facility] [address] [place] [address] [employer]: You Bro DO Urea nitrogen [Mass/Vol] 47 mg/dL High 8-23 [facility] Comment on above: Performed By: #### BARBARA Tan, CDP #### [facility] [address] [place] [address] [employer]: You Bro DO CBC with Auto Differentialon 07-03-2022 Absolute Eos # 0.30 [facility] Absolute Lymph # 2.50 [facility] Absolute [place] # 1.10 [facility] Basophils (Bld) [#/Vol] 0.10 10*3/uL [facility] Basophils/100 WBC (Bld) 1 % 0 - 2 % [facility] Eosinophils/100 WBC (Bld) 3 % 0 - 4 % [facility] Hematocrit (Bld) [Volume fraction] 33.8 % Low 41 - 53 % [facility] Hemoglobin (Bld) [Mass/Vol] 11.2 g/dL Low 13.5 - 17.5 g/dL [facility] Interpretation and review of laboratory results Abnormal [facility] Lymphocytes/100 WBC (Bld) 22 % Low 24 - 44 % [facility] MCH (RBC) [Entitic mass] 30.6 pg 26 - 34 pg [facility] MCHC (RBC) [Mass/Vol] 33.2 g/dL 31 - 37 g/dL [facility] MCV (RBC) [Entitic vol] 92.0 fL 80 - 100 fL [facility] Monocytes/100 WBC (Bld) 9 % High 1 - 7 % [facility] Platelet distribution width (Bld) [Ratio] 14.9 % 11.5 - 14.9 % [facility] Platelet mean volume (Bld) [Entitic vol] 8.2 fL 6.0 - 12.0 fL [facility] Platelets (Bld) [#/Vol] 243 10*3/uL [facility] RBC (Bld) [#/Vol] 3.67 10*6/uL Low 4.5 - 5.9 m/uL [facility] Segmented neutrophils/100 WBC (Bld) 65 % 36 - 66 % [facility] Segs Absolute 7.80 [facility] WBC (Bld) [#/Vol] 11.8 10*3/uL High [facility] CBC with Diffon 07-03-2022 Abs. Basophil 0.10 k/uL Normal 0.0-0.2 [facility] Comment on above: Performed By: #### M Carri, BMP, CDP #### [facility] [address] [place] [address] [employer]: You Bro DO Abs.Neutrophil (Seg) 7.80 k/uL Normal 1.3-9.1 [facility] Comment on above: Performed By: #### BARBARA Tan, CDP #### [facility] [facility] [place] [address] [employer]: You Bro DO Basophils/100 WBC (Bld) 1 % Normal 0-2 [facility] Comment on above: Performed By: #### BARBARA Tan, CDP #### [facility] [address] [place] [address]. [place] [address] [employer]: You Bro DO Eosinophils (Bld) [#/Vol] 0.30 10*3/uL Normal 0.0-0.4 [facility] Comment on above: Performed By: #### BARBARA Tan, CDP #### [facility] [address] [place] [address] [employer]: You Bro DO Eosinophils/100 WBC (Bld) 3 % Normal 0-4 [facility] Comment on above: Performed By: #### BARBARA Tan, CDP #### [facility] [address] [place] [address] [employer]: You Bro DO Erythrocyte distribution width (RBC) [Ratio] 14.9 % Normal 11.5-14.9 [facility] Comment on above: Performed By: #### BARBARA Tan, CDP #### [facility] [address] [place] [phone] [employer]: You Bro DO Hematocrit (Bld) [Volume fraction] 33.8 % Low 41-53 [facility] Comment on above: Performed By: #### BARBARA Tan, CDP #### [facility] [address] [place] [address] [employer]: You Bro DO Hemoglobin (Bld) [Mass/Vol] 11.2 g/dL Low 13.5-17.5 [facility] Comment on above: Performed By: #### BARBARA Tan, CDP #### [facility] [place] [address] [employer]: You Bro DO Lymphocytes (Bld) [#/Vol] 2.50 10*3/uL Normal 1.0-4.8 [facility] Comment on above: Performed By: #### BARBARA Tan, CDP #### [facility] [address] [place] [address] [employer]: You Bro DO Lymphocytes/100 WBC (Bld) 22 % Low 24-44 [facility] Comment on above: Performed By: #### BARBARA Tan, CDP #### [facility] [address] [place] [address] [employer]: You Bro DO MCH (RBC) [Entitic mass] 30.6 pg Normal 26-34 [facility] Comment on above: Performed By: #### BARBARA Tan, CDP #### [facility] [address] [place] [address] [employer]: You Bro DO MCHC (RBC) [Mass/Vol] 33.2 g/dL Normal 31-37 [facility] Comment on above: Performed By: #### BARBARA Tan, CDP #### [facility] [address] [place] [address] [employer]: You Bro DO MCV (RBC) [Entitic vol] 92.0 fL Normal 80-100 [facility] Comment on above: Performed By: #### BARBARA Tan, CDP #### [facility] [address] [place] [address] [employer]: You Bro DO Monocytes (Bld) [#/Vol] 1.10 10*3/uL Normal 0.1-1.3 [facility] Comment on above: Performed By: #### BARBARA Tan, CDP #### [facility] [address] [place] [address] [employer]: You Bro DO Monocytes/100 WBC (Bld) 9 % High 1-7 [facility] Comment on above: Performed By: #### BARBARA Tan, CDP #### [facility] [address] [place] [address] [employer]: You Bro DO Neutrophil (Seg) 65 % Normal 36-66 [facility] Comment on above: Performed By: #### BARBARA Tan, CDP #### [facility] [address] [place] [address] [employer]: You Bro DO Platelet mean volume (Bld) [Entitic vol] 8.2 fL Normal 6.0-12.0 [facility] Comment on above: Performed By: #### BARBARA Tan, CDP #### [facility] [address] [place] [address] [employer]: You Bro DO Platelets (Bld) [#/Vol] 243 10*3/uL Normal 150-450 [facility] Comment on above: Performed By: #### BARBARA Tan, CDP #### [facility] [address] [place] [address] [employer]: You Bro DO RBC (Bld) [#/Vol] 3.67 10*6/uL Low 4.5-5.9 [facility] Comment on above: Performed By: #### BARBARA Tan, CDP #### [facility] [address] [place] [address] [employer]: You Bro DO WBC (Bld) [#/Vol] 11.8 10*3/uL High 3.5-11.0 [facility] Comment on above: Performed By: #### M BARBARA Christina, CDP #### [facility] [address] [place] [address] [employer]: You Bro DO Magnesiumon 07-03-2022 Magnesium [Mass/Vol] 1.8 mg/dL Normal 1.6-2.6 [facility] Comment on above: Performed By: #### M BARBARA Christina, CDP #### [facility] [address] [place] [address] [employer]: You Bro DO Magnesium [Mass/Vol] 1.8 mg/dL 1.6 - 2 .6 mg/dL [facility] No Panel Informationon 07-03 [facility] POC Glucose Fingerstickon Glucose [Mass/Vol] 248 mg/dL High 75 - 110 mg/dL [facility] Interpretation and review of laboratory results Abnormal [facility] Glucose [Mass/Vol] 168 mg/dL High 75 - 110 mg/dL [facility] Interpretation and review of laboratory results Abnormal [facility] Glucose [Mass/Vol] 214 mg/dL High 75 - 110 mg/dL [facility] Interpretation and review of laboratory results Abnormal [facility] Glucose [Mass/Vol] 151 mg/dL High 75 - 110 mg/dL [facility] Interpretation and review of laboratory results Abnormal [facility] POC Glucose Fingerstickon Glucose [Mass/Vol] 206 mg/dL High 75 - 110 mg/dL [facility] Interpretation and review of laboratory results Abnormal [facility] Glucose [Mass/Vol] 203 mg/dL High 75 - 110 mg/dL [facility] Interpretation and review of laboratory results Abnormal [facility] Glucose [Mass/Vol] 168 mg/dL High 75 - 110 mg/dL [facility] Interpretation and review of laboratory results Abnormal [facility] Basic Metab w/rfx MGon 07-01 Anion gap [Moles/Vol] 11 mmol/L Normal 9-17 [facility] Comment on above: Performed By: #### C DP, BMPX #### [facility] [address] [facility] [place] [address] [employer]: You Bro DO Calcium [Mass/Vol] 9.2 mg/dL Normal 8.6-10.4 [facility] Comment on above: Performed By: #### C DP, BMPX #### [facility] [address] [facility] [place] [address] [employer]: You Bro DO Chloride [Moles/Vol] 98 mmol/L Normal 98-107 [facility] Comment on above: Performed By: #### C DP, BMPX #### [facility] [address] [facility] [place] [address] [employer]: You Bro DO CO2 [Moles/Vol] 27 mmol/L Normal 20-31 [facility] Comment on above: Performed By: #### C DP, BMPX #### [facility] [place] [address] [employer]: You Bro DO Creatinine [Mass/Vol] 4.26 mg/dL High 0.70-1.20 [facility] Comment on above: Performed By: #### C DP, BMPX #### [facility] [address] [facility] [place] [address] [employer]: You Bro DO GFR/1.73 sq M.predicted among non-blacks MDRD (S/P/Bld) [Vol rate/Area] 15 mL/min/{1.73_m2} Low >60 [facility] Comment on above: Result Comment: These results are not intended for use in patients <18 years of age. eGFR results are calculated without a race factor using the 2020 CKD-EPI equation. Careful clinical correlation is recommended, particularly when comparing to results calculated using previous equations. The CKD-EPI equation is less accurate in patients with extremes of muscle mass, extra-renal metabolism of creatine, excessive creatine ingestion, or following therapy that affects renal tubular secretion. Performed By: #### C DP, BMPX #### [facility] [address] [place] [address]. [place] [address] [employer]: You Bro DO Glucose [Mass/Vol] 147 mg/dL High 70-99 [facility] Comment on above: Performed By: #### C DP, BMPX #### [facility] [address] [place] [address]. [place] [address] [employer]: You Bro DO Potassium [Moles/Vol] 3.9 mmol/L Normal 3.7-5.3 [facility] Comment on above: Performed By: #### C DP, BMPX #### [facility] [address] [place] [address]. [place] [address] [employer]: You Bro DO Sodium [Moles/Vol] 136 mmol/L Normal 135-144 [facility] Comment on above: Performed By: #### C DP, BMPX #### [facility] [address] [place] [address]. [place] [address] [employer]: You Bro DO Urea nitrogen [Mass/Vol] 44 mg/dL High 8-23 [facility] Comment on above: Performed By: #### C DP, BMPX #### [facility] [address] [place] [address]. [place] [address] [employer]: You Bro DO Basic Metabolic Panel w/ Ref artis to MGon 07-01-2022 Anion gap [Moles/Vol] 11 mmol/L 9 - 17 mmol/L [facility] Calcium [Mass/Vol] 9.2 mg/dL 8.6 - 10. 4 mg/dL [facility] Chloride [Moles/Vol] 98 mmol/L 98 - 10 7 mmol/L [facility] CO2 [Moles/Vol] 27 mmol/L 20 - 31 mmol/L [facility] Creatinine [Mass/Vol] 4.26 mg/dL High 0.70 - 1.20 mg/dL [facility] GFR/1.73 sq M.predicted MDRD (S/P/Bld) [Vol rate/Area] 15 mL/min/{1.73_m2} Low - PINF [facility] Comment on above: These results are not intended for use in patients <18 years of age. eGFR results are calculated without a race factor using the 2020 CKD-EPI equation. Careful clinical correlation is recommended, particularly when comparing to results calculated using previous equations. The CKD-EPI equation is less accurate in patients with extremes of muscle mass, extra-renal metabolism of creatine, excessive creatine ingestion, or following therapy that affects renal tubular secretion. Glucose [Mass/Vol] 147 mg/dL High 70 - 99 mg/dL [facility] Potassium [Moles/Vol] 3.9 mmol/L 3.7 - 5.3 mmol/L [facility] Sodium [Moles/Vol] 136 mmol/L 135 - 144 mmol/L [facility] Urea nitrogen [Mass/Vol] 44 mg/dL High 8 - 23 mg/dL [facility] CBC auto differentialon 06-10 Absolute Eos # 0.40 [facility] Absolute Lymph # 2.30 [facility] Absolute [place] # 1.10 [facility] Basophils (Bld) [#/Vol] 0.10 10*3/uL [facility] Basophils/100 WBC (Bld) 1 % 0 - 2 % [facility] Eosinophils/100 WBC (Bld) 3 % 0 - 4 % [facility] Hematocrit (Bld) [Volume fraction] 32.9 % Low 41 - 53 % [facility] Hemoglobin (Bld) [Mass/Vol] 11.0 g/dL Low 13.5 - 17.5 g/dL [facility] Interpretation and review of laboratory results Abnormal [facility] Lymphocytes/100 WBC (Bld) 19 % Low 24 - 44 % [facility] MCH (RBC) [Entitic mass] 30.9 pg 26 - 34 pg [facility] MCHC (RBC) [Mass/Vol] 33.5 g/dL 31 - 37 g/dL [facility] MCV (RBC) [Entitic vol] 92.4 fL 80 - 100 fL [facility] Monocytes/100 WBC (Bld) 9 % High 1 - 7 % [facility] Platelet distribution width (Bld) [Ratio] 14.5 % 11.5 - 14.9 % [facility] Platelet mean volume (Bld) [Entitic vol] 8.0 fL 6.0 - 12.0 fL [facility] Platelets (Bld) [#/Vol] 285 10*3/uL [facility] RBC (Bld) [#/Vol] 3.56 10*6/uL Low 4.5 - 5.9 m/uL [facility] Segmented neutrophils/100 WBC (Bld) 68 % High 36 - 66 % [facility] Segs Absolute 8.70 [facility] WBC (Bld) [#/Vol] 12.6 10*3/uL High [facility] CBC with Diffon 07-01-2022 Abs. Basophil 0.10 k/uL Normal 0.0-0.2 [facility] Comment on above: Performed By: #### C SARI ARAUJO #### [facility] [address] [place] [address] [employer] [place]: You Bro DO Abs.Neutrophil (Seg) 8.70 k/uL Normal 1.3-9.1 [facility] Comment on above: Performed By: #### C DP, BMPX #### [facility] [place] [address] [employer] [place]: You Bro DO Basophils/100 WBC (Bld) 1 % Normal 0-2 [facility] Comment on above: Performed By: #### C DP, BMPX #### [facility] [address] [place] [address] [employer]: You Bro DO Eosinophils (Bld) [#/Vol] 0.40 10*3/uL Normal 0.0-0.4 [facility] Comment on above: Performed By: #### C DP, BMPX #### [facility] [address] [place] [address] [employer]: You Bro DO Eosinophils/100 WBC (Bld) 3 % Normal 0-4 [facility] Comment on above: Performed By: #### C DP, BMPX #### [facility] [address] [place] [address] [employer]: You Bro DO Erythrocyte distribution width (RBC) [Ratio] 14.5 % Normal 11.5-14.9 [facility] Comment on above: Performed By: #### C DP, BMPX #### [facility] [address] [place] [address] [employer]: You Bro DO Hematocrit (Bld) [Volume fraction] 32.9 % Low 41-53 [facility] Comment on above: Performed By: #### C DP, BMPX #### [facility] [address] [place] [address] [employer]: You Bro DO Hemoglobin (Bld) [Mass/Vol] 11.0 g/dL Low 13.5-17.5 [facility] Comment on above: Performed By: #### C DP, BMPX #### [facility] [place] [address] [employer]: You Bro DO Lymphocytes (Bld) [#/Vol] 2.30 10*3/uL Normal 1.0-4.8 [facility] Comment on above: Performed By: #### C DP, BMPX #### [facility] [address] [place] [address] [employer]: You Bro DO Lymphocytes/100 WBC (Bld) 19 % Low 24-44 [facility] Comment on above: Performed By: #### C DP, BMPX #### [facility] [address] [place] [address] [employer]: You Bro DO MCH (RBC) [Entitic mass] 30.9 pg Normal 26-34 [facility] Comment on above: Performed By: #### C GAYLE, BMPX #### [facility] [address] [place] [address] [employer]: You Bro DO MCHC (RBC) [Mass/Vol] 33.5 g/dL Normal 31-37 [facility] Comment on above: Performed By: #### C GAYLE, BMPX #### [facility] [address] [place] [address] [employer]: You Bro DO MCV (RBC) [Entitic vol] 92.4 fL Normal 80-100 [facility] Comment on above: Performed By: #### C DP, BMPX #### [facility] [address] [place] [address] [employer]: You Bro DO Monocytes (Bld) [#/Vol] 1.10 10*3/uL Normal 0.1-1.3 [facility] Comment on above: Performed By: #### C DP, BMPX #### [facility] [place] [address] [employer]: You Bro DO Monocytes/100 WBC (Bld) 9 % High 1-7 [facility] Comment on above: Performed By: #### C DP, BMPX #### [facility] [address] [place] [address] [employer]: You Bro DO Neutrophil (Seg) 68 % High 36-66 [facility] Comment on above: Performed By: #### C DP, BMPX #### [facility] [address] [place] [address] [employer]: You Bro DO Platelet mean volume (Bld) [Entitic vol] 8.0 fL Normal 6.0-12.0 [facility] Comment on above: Performed By: #### C DP, BMPX #### [facility] [address] [place] [address] [employer]: You Bro DO Platelets (Bld) [#/Vol] 285 10*3/uL Normal 150-450 [facility] Comment on above: Performed By: #### C GAYLE, BMPX #### [facility] [address] [place] [address] [employer]: You Bro DO RBC (Bld) [#/Vol] 3.56 10*6/uL Low 4.5-5.9 [facility] Comment on above: Performed By: #### C DP, BMPX #### [facility] [place] [address] [employer]: You Bro DO WBC (Bld) [#/Vol] 12.6 10*3/uL High 3.5-11.0 [facility] Comment on above: Performed By: #### C DP, BMPX #### [facility] [address] [place] [address] [employer] [place]: You Bro DO Hepatic Function Panelon Albumin [Mass/Vol] 3.1 g/dL Low 3.5 - 5.2 g/dL [facility] ALP [Catalytic activity/Vol] 94 U/L 40 - 129 U/L [facility] ALT [Catalytic activity/Vol] 10 U/L 5 - 41 U/L [facility] AST [Catalytic activity/Vol] 19 U/L NINF - 40 U/L [facility] Bilirubin [Mass/Vol] 0.4 mg/dL 0.3 - 1 .2 mg/dL [facility] Bilirubin.direct [Mass/Vol] 0.1 mg/dL NINF - 0.3 mg/dL [facility] Bilirubin.indirect [Mass/Vol] 0.3 mg/dL 0.0 - 1.0 mg/dL [facility] Protein [Mass/Vol] 7.2 g/dL 6.4 - 8.3 g/dL [facility] Liver Profileon 07-01-2022 Albumin [Mass/Vol] 3.1 g/dL Low 3.5-5.2 [facility] Comment on above: Performed By: #### C DP, BMPX #### [facility] [address] [place], [place] [phone] [employer]: You Bro DO Alkaline Phos 94 U/L Normal 40-129 [facility] Comment on above: Performed By: #### C DP, BMPX #### [facility] [address] [place], [place] [phone] [employer]: You Bro DO ALT [Catalytic activity/Vol] 10 U/L Normal 5-41 [facility] Comment on above: Performed By: #### C GAYLE, BMPX #### [facility] [address] [facility] [place] [address] [employer]: You Bro DO AST [Catalytic activity/Vol] 19 U/L Normal <40 [facility] Comment on above: Performed By: #### C DP, BMPX #### [facility] [address] [facility] [place] [address] [employer]: You Bro DO Bilirubin [Mass/Vol] 0.4 mg/dL Normal 0.3-1.2 [facility] Comment on above: Performed By: #### C DP, BMPX #### [facility] [address] [facility] [place] [address] [employer]: You Bro DO Bilirubin, Indirect 0.3 mg/dL Normal 0.0-1.0 [facility] Comment on above: Performed By: #### C DP, BMPX #### [facility] [address] [facility] [place] [address] [employer]: You Bro DO Bilirubin.indirect [Mass/Vol] 0.1 mg/dL Normal <0.3 [facility] Comment on above: Performed By: #### C DP, BMPX #### [facility] [place] [address] [employer]: You Bro DO Protein [Mass/Vol] 7.2 g/dL Normal 6.4-8.3 [facility] Comment on above: Performed By: #### C DP, BMPX #### [facility] [place] [address] [employer]: You Bro DO No Panel Informationon 07-01 Interpretation and review of laboratory results Abnormal [facility] Glucose Fingerstickon Glucose [Mass/Vol] 230 mg/dL High 75 - 110 mg/dL [facility] Interpretation and review of laboratory results Abnormal [facility] Glucose [Mass/Vol] 179 mg/dL High 75 - 110 mg/dL [facility] Interpretation and review of laboratory results Abnormal [facility] Glucose [Mass/Vol] 230 mg/dL High 75 - 110 mg/dL [facility] Interpretation and review of laboratory results Abnormal [facility] Stone Analysison 07-01-2022 Calculi description See Note Normal [facility] Comment on above: Result Comment: (NOT E) Specimen consists of one brown calculus. The total weight is 51 mg. Performed By: #### B CECY, CBC #### [facility] [address] [place] [address] [phone] [employer]: Rodrick Jones MD Composition See Note Normal [facility] [place] [facility] Comment on above: Result Comment: (NOT E) Calculi composed primarily of calcium oxalate monohydrate. INTERPRETIVE INFORMATION: Calculi (Stone) analysis Calculi are the products of physiological processes that yield crystalline compounds in a matrix of biological compounds and blood. Matrix components are not reported. The clinically significant crystalline components identified in calculi specimens are reported. Gross description may not be consistent with composition determined by FTIR analysis. Performed By: [employer] [address] [place] [id number] Shuttle Operator: Sandeep Paredes MD, PhD Performed By: #### B CECY, CBC #### [facility] [address] [place] [address] [phone] [employer]: Rodrick Jones MD Mass 51 mg [facility] Comment on above: Performed By: #### B CECY, CBC #### [facility] [address] [place] [address] [phone] [employer]: Rodrick Jones MD Basic Metabolic Panelon 06-10 Anion gap [Moles/Vol] 13 mmol/L 9 - 17 mmol/L [facility] Calcium [Mass/Vol] 9.1 mg/dL 8.6 - 10. 4 mg/dL [facility] Chloride [Moles/Vol] 98 mmol/L 98 - 10 7 mmol/L [facility] CO2 [Moles/Vol] 26 mmol/L 20 - 31 mmol/L [facility] Creatinine [Mass/Vol] 3.7 mg/dL High 0.70 - 1.20 mg/dL [facility] GFR/1.73 sq M.predicted MDRD (S/P/Bld) [Vol rate/Area] 18 mL/min/{1.73_m2} Low - PINF [facility] Glucose [Mass/Vol] 209 mg/dL High 70 - 99 mg/dL [facility] Interpretation and review of laboratory results Abnormal [facility] Potassium [Moles/Vol] 3.7 mmol/L 3.7 - 5.3 mmol/L [facility] Sodium [Moles/Vol] 137 mmol/L 135 - 144 mmol/L [facility] Urea nitrogen [Mass/Vol] 32 mg/dL High 8 - 23 mg/dL [facility] Basic Metabolic Profon 06-30 Anion gap [Moles/Vol] 13 mmol/L Normal 9-17 [facility] Comment on above: Performed By: #### B CECY, CBC #### [facility] [address] [place] [address] [employer]: Rodrick Jones MD Calcium [Mass/Vol] 9.1 mg/dL Normal 8.6-10.4 [facility] Comment on above: Performed By: #### B MP, CBC #### [facility] [place], [place] [phone] [employer]: Rodrick Jones MD Chloride [Moles/Vol] 98 mmol/L Normal 98-107 [facility] Comment on above: Performed By: #### B MP, CBC #### [facility] [place], [place] [phone] [employer]: Rodrick Jones MD CO2 [Moles/Vol] 26 mmol/L Normal 20-31 [facility] Comment on above: Performed By: #### B MP, CBC #### [facility] [address] [place] [address] [employer]: Rodrick Jones MD Creatinine [Mass/Vol] 3.70 mg/dL High 0.70-1.20 [facility] Comment on above: Performed By: #### B MP, CBC #### [address] [address] [employer]: Rodrick Jones MD GFR/1.73 sq M.predicted among non-blacks MDRD (S/P/Bld) [Vol rate/Area] 18 mL/min/{1.73_m2} Low >60 [facility] Comment on above: Result Comment: These results are not intended for use in patients <18 years of age. eGFR results are calculated without a race factor using the 2020 CKD-EPI equation. Careful clinical correlation is recommended, particularly when comparing to results calculated using previous equations. The CKD-EPI equation is less accurate in patients with extremes of muscle mass, extra-renal metabolism of creatine, excessive creatine ingestion, or following therapy that affects renal tubular secretion. Performed By: #### B MP, CBC #### [address] [address] [employer]: Rodrick Jones MD Glucose [Mass/Vol] 209 mg/dL High 70-99 [facility] Comment on above: Performed By: #### B MP, CBC #### [address] [address] [employer]: Rodrick Jones MD Potassium [Moles/Vol] 3.7 mmol/L Normal 3.7-5.3 [facility] Comment on above: Performed By: #### B MP, CBC #### [address] [address] [employer]: Rodrick Jones MD Sodium [Moles/Vol] 137 mmol/L Normal 135-144 [facility] Comment on above: Performed By: #### B MP, CBC #### [address] [address] [employer]: Rodrick Jones MD Urea nitrogen [Mass/Vol] 32 mg/dL High 8-23 [facility] Comment on above: Performed By: #### B MP, CBC #### [address] [address] [employer]: Rodrick Jones MD CBCon 06-30-2022 Erythrocyte distribution width (RBC) [Ratio] 13.7 % Normal 11.8-14.4 [facility] Comment on above: Performed By: #### B MP, CBC #### [address] [address] [employer]: Rodrick Jones MD Hematocrit (Bld) [Volume fraction] 36.0 % Low 40.7-50.3 [facility] Comment on above: Performed By: #### B MP, CBC #### [address] [address] [employer]: Rodrick Jones MD Hemoglobin (Bld) [Mass/Vol] 11.6 g/dL Low 13.0-17.0 [facility] Comment on above: Performed By: #### B MP, CBC #### [address] [address] [employer]: Rodrick Jones MD MCH (RBC) [Entitic mass] 30.9 pg Normal 25.2-33.5 [facility] Comment on above: Performed By: #### B MP, CBC #### [address] [address] [employer]: Rodrick Jones MD MCHC (RBC) [Mass/Vol] 32.2 g/dL Normal 28.4-34.8 [facility] Comment on above: Performed By: #### B MP, CBC #### [address] [id number] [place] [address] [employer]: Rodrick Jones MD MCV (RBC) [Entitic vol] 95.7 fL Normal 82.6-102.9 [facility] Comment on above: Performed By: #### B MP, CBC #### [address] [address] [employer]: Rodrick Jones MD NRBC Automated 0.0 per 100 WBC Normal 0.0 [facility] Comment on above: Performed By: #### B MP, CBC #### [address] [address] [employer]: Rodrick Jones MD Platelet mean volume (Bld) [Entitic vol] 9.7 fL Normal 8.1-13.5 [facility] Comment on above: Performed By: #### B MP, CBC #### [address] [address] [employer]: Rodrick Jones MD Platelets (Bld) [#/Vol] 276 10*3/uL Normal 138-453 [facility] Comment on above: Performed By: #### B MP, CBC #### [address] [address] [employer]: Rodrick Jones MD RBC (Bld) [#/Vol] 3.76 10*6/uL Low 4.21-5.77 [facility] Comment on above: Performed By: #### B MP, CBC #### [address] [address] [employer]: Rodrick Jones MD WBC (Bld) [#/Vol] 13.6 10*3/uL High 3.5-11.3 [facility] Comment on above: Performed By: #### B MP, CBC #### [address] [id number] [place] [address] [employer]: Rodrick Jones MD Hematocrit (Bld) [Volume fraction] 36.0 % Low 40.7 - 50.3 % [facility] Hemoglobin (Bld) [Mass/Vol] 11.6 g/dL Low 13.0 - 17.0 g/dL [facility] Interpretation and review of laboratory results Abnormal [facility] MCH (RBC) [Entitic mass] 30.9 pg 25.2 - 33.5 pg [facility] MCHC (RBC) [Mass/Vol] 32.2 g/dL 28.4 - 34.8 g/dL [facility] MCV (RBC) [Entitic vol] 95.7 fL 82.6 - 102.9 fL [facility] NRBC Automated 0.0 0.0 per 100 WBC [facility] Platelet distribution width (Bld) [Ratio] 13.7 % 11.8 - 14.4 % [facility] Platelet mean volume (Bld) [Entitic vol] 9.7 fL 8.1 - 13.5 fL [facility] Platelets (Bld) [#/Vol] 276 10*3/uL [facility] RBC (Bld) [#/Vol] 3.76 10*6/uL Low 4.21 - 5.7 7 m/uL [facility] WBC (Bld) [#/Vol] 13.6 10*3/uL High [facility] Glucose Fingerstickon Glucose [Mass/Vol] 223 mg/dL High 75 - 110 mg/dL [facility] Interpretation and review of laboratory results Abnormal [facility] Glucose [Mass/Vol] 180 mg/dL High 75 - 110 mg/dL [facility] Interpretation and review of laboratory results Abnormal [facility] Glucose [Mass/Vol] 216 mg/dL High 75 - 110 mg/dL [facility] Interpretation and review of laboratory results Abnormal [facility] Glucose [Mass/Vol] 174 mg/dL High 75 - 110 mg/dL [facility] Interpretation and review of laboratory results Abnormal [facility] Basic Metab w/rfx MGon 06-29 Anion gap [Moles/Vol] 11 mmol/L Normal 9-17 [facility] Comment on above: Performed By: #### B MP, CBC #### [facility] [address] [place] [address] [employer]: Rodrick Jones MD Calcium [Mass/Vol] 9.1 mg/dL Normal 8.6-10.4 [facility] Comment on above: Performed By: #### B MP, CBC #### [facility] [address] [place] [address] [employer]: Rodrick Jones MD Chloride [Moles/Vol] 103 mmol/L Normal 98-107 [facility] Comment on above: Performed By: #### B MP, CBC #### [facility] [address] [place] [address] [employer]: Rodrick Jones MD CO2 [Moles/Vol] 24 mmol/L Normal 20-31 [facility] Comment on above: Performed By: #### B MP, CBC #### [facility] [address] [place] [address] [employer]: Rodrick Jones MD Creatinine [Mass/Vol] 4.38 mg/dL High 0.70-1.20 [facility] Comment on above: Performed By: #### B MP, CBC #### [facility] [address] [place] [address] [employer]: Rodrick Jones MD GFR/1.73 sq M.predicted among non-blacks MDRD (S/P/Bld) [Vol rate/Area] 15 mL/min/{1.73_m2} Low >60 [facility] Comment on above: Result Comment: These results are not intended for use in patients <18 years of age. eGFR results are calculated without a race factor using the 2020 CKD-EPI equation. Careful clinical correlation is recommended, particularly when comparing to results calculated using previous equations. The CKD-EPI equation is less accurate in patients with extremes of muscle mass, extra-renal metabolism of creatine, excessive creatine ingestion, or following therapy that affects renal tubular secretion. Performed By: #### B MP, CBC #### [facility] [address] [place] [address] [employer]: Rodrick Jones MD Glucose [Mass/Vol] 161 mg/dL High 70-99 [facility] Comment on above: Performed By: #### B CCEY, CBC #### [facility] [address] [place] [address] [employer]: Rodrick Jones MD Potassium [Moles/Vol] 4.0 mmol/L Normal 3.7-5.3 [facility] Comment on above: Performed By: #### B CECY, CBC #### [facility] [address] [place] [address] [employer]: Rodrick Jones MD Sodium [Moles/Vol] 138 mmol/L Normal 135-144 [facility] Comment on above: Performed By: #### B MP, CBC #### [facility] [address] [place] [address] [employer]: Rodrick Jones MD Urea nitrogen [Mass/Vol] 43 mg/dL High 8-23 [facility] Comment on above: Performed By: #### B CECY, CBC #### [facility] [address] [place] [address] [employer]: Rodrick Jones MD Basic Metabolic Panel w/ Ref artis to MGon 06-29-2022 Anion gap [Moles/Vol] 11 mmol/L 9 - 17 mmol/L [facility] Calcium [Mass/Vol] 9.1 mg/dL 8.6 - 10. 4 mg/dL [facility] Chloride [Moles/Vol] 103 mmol/L 98 - 10 7 mmol/L [facility] CO2 [Moles/Vol] 24 mmol/L 20 - 31 mmol/L [facility] Creatinine [Mass/Vol] 4.38 mg/dL High 0.70 - 1.20 mg/dL [facility] GFR/1.73 sq M.predicted MDRD (S/P/Bld) [Vol rate/Area] 15 mL/min/{1.73_m2} Low - PINF [facility] Glucose [Mass/Vol] 161 mg/dL High 70 - 99 mg/dL [facility] Interpretation and review of laboratory results Abnormal [facility] Potassium [Moles/Vol] 4.0 mmol/L 3.7 - 5.3 mmol/L [facility] Sodium [Moles/Vol] 138 mmol/L 135 - 144 mmol/L [facility] Urea nitrogen [Mass/Vol] 43 mg/dL High 8 - 23 mg/dL [facility] CALCIUM, IONIC (POC)on 06-29 POC Ionized Calcium 1.13 mmol/L Low 1.15 - 1 .33 mmol/L [facility] CBCon 06-29-2022 Erythrocyte distribution width (RBC) [Ratio] 13.4 % Normal 11.8-14.4 [facility] Comment on above: Performed By: #### C RP, RENP, CBC, MG #### [facility] [address] [place] [address] [employer]: Rodrick Jones MD Hematocrit (Bld) [Volume fraction] 35.4 % Low 40.7-50.3 [facility] Comment on above: Performed By: #### C RP, RENP, CBC, MG #### [facility] [address] [place], [place] [id number] [place]: Rodrick Jones MD Hemoglobin (Bld) [Mass/Vol] 11.4 g/dL Low 13.0-17.0 [facility] Comment on above: Performed By: #### C RP, RENP, CBC, MG #### [address] [address] [place]: Rodrick Jones MD MCH (RBC) [Entitic mass] 30.3 pg Normal 25.2-33.5 [facility] Comment on above: Performed By: #### C RP, RENP, CBC, MG #### [address] [address] [place]: Rodrick Jones MD MCHC (RBC) [Mass/Vol] 32.2 g/dL Normal 28.4-34.8 [facility] Comment on above: Performed By: #### C RP, RENP, CBC, MG #### [address] [address] [place]: Rodrick Jones MD MCV (RBC) [Entitic vol] 94.1 fL Normal 82.6-102.9 [facility] Comment on above: Performed By: #### C RP, RENP, CBC, MG #### [address] [address] [place]: Rodrick Jones MD NRBC Automated 0.0 per 100 WBC Normal 0.0 [facility] Comment on above: Performed By: #### C RP, RENP, CBC, MG #### [place] [address] [place]: Rodrick Jones MD Platelet mean volume (Bld) [Entitic vol] 10.4 fL Normal 8.1-13.5 [facility] Comment on above: Performed By: #### C RP, RENP, CBC, MG #### [address] [address] [place]: Rodrick Jones MD Platelets (Bld) [#/Vol] 357 10*3/uL Normal 138-453 [facility] Comment on above: Performed By: #### C RP, RENP, CBC, MG #### [facility] [address] [place], [place] [id number] [place]: Rodrick Jones MD RBC (Bld) [#/Vol] 3.76 10*6/uL Low 4.21-5.77 [facility] Comment on above: Performed By: #### C RP, RENP, CBC, MG #### [email or web address] [address] [place], [place] [id number] [place]: Rodrick Jones MD WBC (Bld) [#/Vol] 13.4 10*3/uL High 3.5-11.3 [facility] Comment on above: Performed By: #### C RP, RENP, CBC, MG #### [email or web address] [address] [place], [place] [id number] [place]: Rodrick Jones MD Hematocrit (Bld) [Volume fraction] 35.4 % Low 40.7 - 50.3 % [facility] Hemoglobin (Bld) [Mass/Vol] 11.4 g/dL Low 13.0 - 17.0 g/dL [facility] Interpretation and review of laboratory results Abnormal [facility] MCH (RBC) [Entitic mass] 30.3 pg 25.2 - 33.5 pg [facility] MCHC (RBC) [Mass/Vol] 32.2 g/dL 28.4 - 34.8 g/dL [facility] MCV (RBC) [Entitic vol] 94.1 fL 82.6 - 102.9 fL [facility] NRBC Automated 0.0 0.0 per 100 WBC [facility] Platelet distribution width (Bld) [Ratio] 13.4 % 11.8 - 14.4 % [facility] Platelet mean volume (Bld) [Entitic vol] 10.4 fL 8.1 - 13.5 fL [facility] Platelets (Bld) [#/Vol] 357 10*3/uL [facility] RBC (Bld) [#/Vol] 3.76 10*6/uL Low 4.21 - 5.7 7 m/uL [facility] WBC (Bld) [#/Vol] 13.4 10*3/uL High [facility] CBC with Auto Differentialon 06-29-2022 Absolute Eos # 0.37 [facility] Absolute Immature Granulocyte 0.49 High [facility] Absolute Lymph # 2.09 [facility] Absolute [place] # 1.01 [facility] Basophils (Bld) [#/Vol] 0.10 10*3/uL [facility] Basophils/100 WBC (Bld) 1 % 0 - 2 % [facility] Eosinophils/100 WBC (Bld) 3 % 1 - 4 % [facility] Hematocrit (Bld) [Volume fraction] 35.7 % Low 40.7 - 50.3 % [facility] Hemoglobin (Bld) [Mass/Vol] 11.4 g/dL Low 13.0 - 17.0 g/dL [facility] Immature granulocytes/100 WBC (Bld) 4 % High 0 [facility] Interpretation and review of laboratory results Abnormal [facility] Lymphocytes/100 WBC (Bld) 16 % Low 24 - 43 % [facility] MCH (RBC) [Entitic mass] 30.5 pg 25.2 - 33.5 pg [facility] MCHC (RBC) [Mass/Vol] 31.9 g/dL 28.4 - 34.8 g/dL [facility] MCV (RBC) [Entitic vol] 95.5 fL 82.6 - 102.9 fL [facility] Monocytes/100 WBC (Bld) 8 % 3 - 12 % [facility] NRBC Automated 0.0 0.0 per 100 WBC [facility] Platelet distribution width (Bld) [Ratio] 13.5 % 11.8 - 14.4 % [facility] Platelet mean volume (Bld) [Entitic vol] 9.7 fL 8.1 - 13.5 fL [facility] Platelets (Bld) [#/Vol] 301 10*3/uL [facility] RBC (Bld) [#/Vol] 3.74 10*6/uL Low 4.21 - 5.7 7 m/uL [facility] Seg Neutrophils 68 % High 36 - 65 % [facility] Segs Absolute 8.88 High [facility] WBC (Bld) [#/Vol] 12.9 10*3/uL High [facility] CBC with Diffon 06-29-2022 Abs. Basophil 0.10 k/uL Normal 0.00-0.20 [facility] Comment on above: Performed By: #### B MP, CBC #### [address] [address] [place]: Rodrick Jones MD Abs.Imm.Granulocyte 0.49 k/uL High 0.00-0.30 [facility] Comment on above: Performed By: #### B MP, CBC #### [facility] [address] [place] [address] [place]: Rodrick Jones MD Abs.Neutrophil (Seg) 8.88 k/uL High 1.50-8.10 [facility] Comment on above: Performed By: #### B MP, CBC #### [facility] [address] [place] [address] [place]: Rodrick Jones MD Basophils/100 WBC (Bld) 1 % Normal 0-2 [facility] Comment on above: Performed By: #### B MP, CBC #### [facility] [address] [place] [address] [place]: Rodrick Jones MD Eosinophils (Bld) [#/Vol] 0.37 10*3/uL Normal 0.00-0.44 [facility] Comment on above: Performed By: #### B MP, CBC #### [facility] [address] [place] [phone] [place]: Rodrick Jones MD Eosinophils/100 WBC (Bld) 3 % Normal 1-4 [facility] Comment on above: Performed By: #### B MP, CBC #### [address] [address] [place]: Rodrick Jones MD Erythrocyte distribution width (RBC) [Ratio] 13.5 % Normal 11.8-14.4 [facility] Comment on above: Performed By: #### B MP, CBC #### [address] [address] [place]: Rodrick Jones MD Hematocrit (Bld) [Volume fraction] 35.7 % Low 40.7-50.3 [facility] Comment on above: Performed By: #### B MP, CBC #### [place] [address] [place]: Rodrick Jones MD Hemoglobin (Bld) [Mass/Vol] 11.4 g/dL Low 13.0-17.0 [facility] Comment on above: Performed By: #### B MP, CBC #### [address] [address] [place]: Rodrick Jones MD Immature granulocytes/100 WBC (Bld) 4 % High 0 [facility] Comment on above: Performed By: #### B MP, CBC #### [address] [address] [place]: Rodrick Jones MD Lymphocytes (Bld) [#/Vol] 2.09 10*3/uL Normal 1.10-3.70 [facility] Comment on above: Performed By: #### B MP, CBC #### [facility] [address] [place] [address] [employer] [place]: Rodrick Jones MD Lymphocytes/100 WBC (Bld) 16 % Low 24-43 [facility] Comment on above: Performed By: #### B MP, CBC #### [address] [address] [place]: Rodrick Jones MD MCH (RBC) [Entitic mass] 30.5 pg Normal 25.2-33.5 [facility] Comment on above: Performed By: #### B MP, CBC #### [address] [address] [place]: Rodrick Jones MD MCHC (RBC) [Mass/Vol] 31.9 g/dL Normal 28.4-34.8 [facility] Comment on above: Performed By: #### B MP, CBC #### [address] [address] [employer] [place]: Rodrick Jones MD MCV (RBC) [Entitic vol] 95.5 fL Normal 82.6-102.9 [facility] Comment on above: Performed By: #### B MP, CBC #### [address] [address] [place]: Rodrick Jones MD Monocytes (Bld) [#/Vol] 1.01 10*3/uL Normal 0.10-1.20 [facility] Comment on above: Performed By: #### B MP, CBC #### [address] [address] [employer] [place]: Rodrick Jones MD Monocytes/100 WBC (Bld) 8 % Normal 3-12 [facility] Comment on above: Performed By: #### B MP, CBC #### [address] [address] [place]: Rodrick Jones MD Neutrophil (Seg) 68 % High 36-65 [facility] Comment on above: Performed By: #### B MP, CBC #### [address] [address] [place] [employer]: Rodrick Jones MD NRBC Automated 0.0 per 100 WBC Normal 0.0 [facility] Comment on above: Performed By: #### B MP, CBC #### [facility] [address] [place] [address] [place]: Rodrick Jones MD Platelet mean volume (Bld) [Entitic vol] 9.7 fL Normal 8.1-13.5 [facility] Comment on above: Performed By: #### B MP, CBC #### [facility] [address] [place] [address] [employer] [place]: Rodrick Jones MD Platelets (Bld) [#/Vol] 301 10*3/uL Normal 138-453 [facility] Comment on above: Performed By: #### B MP, CBC #### [facility] [address] [place] [address] [place]: Rodrick Jones MD RBC (Bld) [#/Vol] 3.74 10*6/uL Low 4.21-5.77 [facility] Comment on above: Performed By: #### B MP, CBC #### [facility] [address] [place] [address] [place]: Rodrick Jones MD WBC (Bld) [#/Vol] 12.9 10*3/uL High 3.5-11.3 [facility] Comment on above: Performed By: #### B MP, CBC #### [facility] [address] [place] [address] [place]: Rodrick Jones MD Creatinine W/GFR Point of Ca reon 06-29-2022 Creatinine [Mass/Vol] 4.68 mg/dL High 0.51 - 1.19 mg/dL [facility] eGFR, POC 14 mL/min/1.73m2 [facility] Differentialon 06-29-2022 Abs. Basophil 0.13 k/uL Normal 0.0-0.2 [facility] Comment on above: Performed By: #### C RP, RENP, CBC, MG #### [address] [address] [place]: Rodrick Jones MD Abs.Imm.Granulocyte 0.00 k/uL Normal 0.00-0.30 [facility] Comment on above: Performed By: #### C RP, RENP, CBC, MG #### [place] [address] [place]: Rodrick Jones MD Abs.Neutrophil (Seg) 9.92 k/uL High 1.8-7.7 [facility] Comment on above: Performed By: #### C RP, RENP, CBC, MG #### [place] [address] [place]: Rodrick Jones MD Basophils/100 WBC (Bld) 1 % Normal 0-2 [facility] Comment on above: Performed By: #### C RP, RENP, CBC, MG #### [place] [address] [place]: Rodrick Jones MD Eosinophils (Bld) [#/Vol] 0.27 10*3/uL Normal 0.0-0.4 [facility] Comment on above: Performed By: #### C RP, RENP, CBC, MG #### [facility] [address] [place] [address] [place]: Rodrick Jones MD Eosinophils/100 WBC (Bld) 2 % Normal 1-4 [facility] Comment on above: Performed By: #### C RP, RENP, CBC, MG #### [facility] [address] [place] [address] [employer] [place]: Rodrick Jones MD Immature granulocytes/100 WBC (Bld) 0 % Normal 0 [facility] Comment on above: Performed By: #### C RP, RENP, CBC, MG #### [facility] [address] [place] [address] [place]: Rodrick Jones MD Lymphocytes (Bld) [#/Vol] 2.14 10*3/uL Normal 1.0-4.8 [facility] Comment on above: Performed By: #### C RP, RENP, CBC, MG #### [address] [address] [place]: Rodrick Jones MD Lymphocytes/100 WBC (Bld) 16 % Low 24-44 [facility] Comment on above: Performed By: #### C RP, RENP, CBC, MG #### [place] [address] [place]: Rodrick Jones MD Monocytes (Bld) [#/Vol] 0.94 10*3/uL High 0.1-0.8 [facility] Comment on above: Performed By: #### C RP, RENP, CBC, MG #### [place] [address] [place] [employer]: Rodrick Jones MD Monocytes/100 WBC (Bld) 7 % Normal 1-7 [facility] Comment on above: Performed By: #### C RP, RENP, CBC, MG #### [facility] [address] [place] [address] [place]: Rodrick Jones MD Morphology Cale (Bld) [Interp] Normal Normal [facility] Comment on above: Performed By: #### C RP, RENP, CBC, MG #### [facility] [address] [place] [address] [place]: Rodrick Jones MD Neutrophil (Seg) 74 % High 36-66 [facility] Comment on above: Performed By: #### C RP, RENP, CBC, MG #### [facility] [address] [place] [address] [place]: Rodrick Jones MD Absolute Eos # 0.27 [facility] Absolute Immature Granulocyte 0.00 [facility] Absolute Lymph # 2.14 [facility] Absolute [place] # 0.94 High [facility] Basophils (Bld) [#/Vol] 0.13 10*3/uL [facility] Basophils/100 WBC (Bld) 1 % 0 - 2 % [facility] Eosinophils/100 WBC (Bld) 2 % 1 - 4 % [facility] Immature granulocytes/100 WBC (Bld) 0 % 0 [facility] Interpretation and review of laboratory results Abnormal [facility] Lymphocytes/100 WBC (Bld) 16 % Low 24 - 44 % [facility] Monocytes/100 WBC (Bld) 7 % 1 - 7 % [facility] Morphology Cale (Bld) [Interp] Normal [facility] Seg Neutrophils 74 % High 36 - 66 % [facility] Segs Absolute 9.92 High [facility] ELECTROLYTES PLUSon 06-30-19 23 Anion gap [Moles/Vol] 14 mmol/L 7 - 16 mmol/L [facility] Chloride [Moles/Vol] 101 mmol/L 98 - 10 7 mmol/L [facility] CO2 [Moles/Vol] 26 mmol/L 22 - 30 mmol/L [facility] Potassium [Moles/Vol] 4.0 mmol/L 3.5 - 4.5 mmol/L [facility] Sodium [Moles/Vol] 140 mmol/L 138 - 146 mmol/L [facility] FLUORO FOR SURGICAL PROCEDUR ESon 06-29-2022 FLUORO FOR SURGICAL PROCEDURES Radiology exam is complete. No Radiologist dictation. Please follow up with ordering provider. Final result Normal [facility] MHPN RIS CONSOLIDATED Hemoglobin and hematocrit, b loodon 06-29-2022 Hematocrit (Bld) [Volume fraction] 36 % Low 41 - 53 % [facility] Hemoglobin (Bld) [Mass/Vol] 12.2 g/dL Low 13.5 - 17.5 g/dL [facility] No Panel Informationon 06-29 Interpretation and review of laboratory results Abnormal [facility] POC Glucose Fingerstickon Glucose [Mass/Vol] 208 mg/dL High 75 - 110 mg/dL [facility] Interpretation and review of laboratory results Abnormal [facility] Glucose [Mass/Vol] 142 mg/dL High 75 - 110 mg/dL [facility] Interpretation and review of laboratory results Abnormal [facility] Glucose [Mass/Vol] 179 mg/dL High 75 - 110 mg/dL [facility] Interpretation and review of laboratory results Abnormal [facility] Glucose [Mass/Vol] 157 mg/dL High 75 - 110 mg/dL [facility] Interpretation and review of laboratory results Abnormal [facility] Glucose [Mass/Vol] 163 mg/dL High 75 - 110 mg/dL [facility] Interpretation and review of laboratory results Abnormal [facility] Glucose [Mass/Vol] 145 mg/dL High 75 - 110 mg/dL [facility] Interpretation and review of laboratory results Abnormal [facility] POCT Glucoseon 06-29-2022 Glucose [Mass/Vol] 153 mg/dL High 74 - 100 mg/dL [facility] POCT urea (BUN)on 06-29-2022 Urea nitrogen [Mass/Vol] 49 mg/dL High 8 - 26 mg/dL [facility] Basic Metab w/rfx MGon 06-28 Anion gap [Moles/Vol] 14 mmol/L Normal 9-17 [facility] Comment on above: Performed By: #### C RP, RENP, CBC, MG #### [facility] [place] [address] [place]: Rodrick Jones MD Calcium [Mass/Vol] 9.3 mg/dL Normal 8.6-10.4 [facility] Comment on above: Performed By: #### C RP, RENP, CBC, MG #### [facility] [address] [place] [address] [place]: Rodrick Jones MD Chloride [Moles/Vol] 98 mmol/L Normal 98-107 [facility] Comment on above: Performed By: #### C RP, RENP, CBC, MG #### [facility] [address] [place] [address] [place]: Rodrick Jones MD CO2 [Moles/Vol] 24 mmol/L Normal 20-31 [facility] Comment on above: Performed By: #### C RP, RENP, CBC, MG #### [address] [address] [place]: Rodrick Jones MD Creatinine [Mass/Vol] 4.49 mg/dL High 0.70-1.20 [facility] Comment on above: Performed By: #### C RP, RENP, CBC, MG #### [address] [address] [place]: Rodrick Jones MD GFR/1.73 sq M.predicted among non-blacks MDRD (S/P/Bld) [Vol rate/Area] 14 mL/min/{1.73_m2} Low >60 [facility] Comment on above: Result Comment: These results are not intended for use in patients <18 years of age. eGFR results are calculated without a race factor using the 2020 CKD-EPI equation. Careful clinical correlation is recommended, particularly when comparing to results calculated using previous equations. The CKD-EPI equation is less accurate in patients with extremes of muscle mass, extra-renal metabolism of creatine, excessive creatine ingestion, or following therapy that affects renal tubular secretion. Performed By: #### C RP, RENP, CBC, MG #### [address] [address] [place]: Rodrick Jones MD Glucose [Mass/Vol] 166 mg/dL High 70-99 [facility] Comment on above: Performed By: #### C RP, RENP, CBC, MG #### [facility] [address] [place] [address] [place]: Rodrick Jones MD Potassium [Moles/Vol] 3.9 mmol/L Normal 3.7-5.3 [facility] Comment on above: Performed By: #### C RP, RENP, CBC, MG #### [facility] [address] [place] [address] [place]: Rodrick Jones MD Sodium [Moles/Vol] 136 mmol/L Normal 135-144 [facility] Comment on above: Performed By: #### C RP, RENP, CBC, MG #### [facility] [address] [place] [address] [place]: Rodrick Jones MD Urea nitrogen [Mass/Vol] 42 mg/dL High 8-23 [facility] Comment on above: Performed By: #### C RP, RENP, CBC, MG #### [facility] [address] [place] [address] [place] [employer]: Rodrick Jones MD Basic Metabolic Panelon -2 Anion gap [Moles/Vol] 15 mmol/L 9 - 17 mmol/L [facility] [employer] [facility] Calcium [Mass/Vol] 9.1 mg/dL 8.6 - 10. 4 mg/dL [facility] Chloride [Moles/Vol] 97 mmol/L Low 98 - 10 7 mmol/L [facility] [employer] [facility] CO2 [Moles/Vol] 24 mmol/L 20 - 31 mmol/L [facility] Creatinine [Mass/Vol] 4.44 mg/dL High 0.70 - 1.20 mg/dL [facility] GFR/1.73 sq M.predicted MDRD (S/P/Bld) [Vol rate/Area] 14 mL/min/{1.73_m2} Low - PINF [facility] Glucose [Mass/Vol] 184 mg/dL High 70 - 99 mg/dL [facility] Interpretation and review of laboratory results Abnormal [facility] Potassium [Moles/Vol] 3.7 mmol/L 3.7 - 5.3 mmol/L [facility] Sodium [Moles/Vol] 136 mmol/L 135 - 144 mmol/L [facility] Urea nitrogen [Mass/Vol] 42 mg/dL High 8 - 23 mg/dL [facility] Basic Metabolic Panel w/ Ref artis to MGon 06-28-2022 Anion gap [Moles/Vol] 14 mmol/L 9 - 17 mmol/L [facility] Calcium [Mass/Vol] 9.3 mg/dL 8.6 - 10. 4 mg/dL [facility] Chloride [Moles/Vol] 98 mmol/L 98 - 10 7 mmol/L [facility] CO2 [Moles/Vol] 24 mmol/L 20 - 31 mmol/L [facility] Creatinine [Mass/Vol] 4.49 mg/dL High 0.70 - 1.20 mg/dL [facility] GFR/1.73 sq M.predicted MDRD (S/P/Bld) [Vol rate/Area] 14 mL/min/{1.73_m2} Low - PINF [facility] Glucose [Mass/Vol] 166 mg/dL High 70 - 99 mg/dL [facility] Interpretation and review of laboratory results Abnormal [facility] Potassium [Moles/Vol] 3.9 mmol/L 3.7 - 5.3 mmol/L [facility] Sodium [Moles/Vol] 136 mmol/L 135 - 144 mmol/L [facility] Urea nitrogen [Mass/Vol] 42 mg/dL High 8 - 23 mg/dL [facility] Basic Metabolic Profon 06-28 Potassium [Moles/Vol] 3.7 mmol/L Normal 3.7-5.3 [facility] Comment on above: Performed By: #### C RP, RENP, CBC, MG #### [facility] [address] [place] [address] [place]: Rodrick Jones MD Anion gap [Moles/Vol] 15 mmol/L Normal 9-17 [facility] Comment on above: Performed By: #### C RP, RENP, CBC, MG #### [facility] [address] [place] [address] [place]: Rodrick Jones MD Calcium [Mass/Vol] 9.1 mg/dL Normal 8.6-10.4 [facility] Comment on above: Performed By: #### C RP, RENP, CBC, MG #### [facility] [address] [place] [address] [employer] [place]: Rodrick Jones MD Chloride [Moles/Vol] 97 mmol/L Low 98-107 [facility] Comment on above: Performed By: #### C RP, RENP, CBC, MG #### [facility] [address] [place] [address] [employer]: Rodrick Jones MD CO2 [Moles/Vol] 24 mmol/L Normal 20-31 [facility] Comment on above: Performed By: #### C RP, RENP, CBC, MG #### [facility] [address] [place] [address] [place] [employer]: Rodrick Jones MD Creatinine [Mass/Vol] 4.44 mg/dL High 0.70-1.20 [facility] Comment on above: Performed By: #### C RP, RENP, CBC, MG #### [facility] [address] [place] [address] [employer] [place]: Rodrick Jones MD GFR/1.73 sq M.predicted among non-blacks MDRD (S/P/Bld) [Vol rate/Area] 14 mL/min/{1.73_m2} Low >60 [facility] Comment on above: Result Comment: These results are not intended for use in patients <18 years of age. eGFR results are calculated without a race factor using the 2020 CKD-EPI equation. Careful clinical correlation is recommended, particularly when comparing to results calculated using previous equations. The CKD-EPI equation is less accurate in patients with extremes of muscle mass, extra-renal metabolism of creatine, excessive creatine ingestion, or following therapy that affects renal tubular secretion. Performed By: #### C RP, RENP, CBC, MG #### [facility] [address] [place] [address] [employer] [place]: Rodrick Jones MD Glucose [Mass/Vol] 184 mg/dL High 70-99 [facility] Comment on above: Performed By: #### C RP, RENP, CBC, MG #### [facility] [address] [place] [address] [employer] [place]: Rodrick Jones MD Sodium [Moles/Vol] 136 mmol/L Normal 135-144 [facility] Comment on above: Performed By: #### C RP, RENP, CBC, MG #### [facility] [address] [place] [address] [employer]: Rodrick Jones MD Urea nitrogen [Mass/Vol] 42 mg/dL High 8-23 [facility] Comment on above: Performed By: #### C RP, RENP, CBC, MG #### [facility] [address] [place] [address] [employer] [place]: Rodrick Jones MD CBCon 06-28-2022 Erythrocyte distribution width (RBC) [Ratio] 13.5 % Normal 11.8-14.4 [facility] Comment on above: Performed By: #### C RP, RENP, CBC, MG #### [facility] [address] [place] [address] [employer]: Rodrick Jones MD Hematocrit (Bld) [Volume fraction] 37.1 % Low 40.7-50.3 [facility] Comment on above: Performed By: #### C RP, RENP, CBC, MG #### [address] [address] [employer]: Rodrick Jones MD Hemoglobin (Bld) [Mass/Vol] 11.7 g/dL Low 13.0-17.0 [facility] Comment on above: Performed By: #### C RP, RENP, CBC, MG #### [facility] [address] [place] [address] [employer]: Rodrick Jones MD MCH (RBC) [Entitic mass] 30.7 pg Normal 25.2-33.5 [facility] Comment on above: Performed By: #### C RP, RENP, CBC, MG #### [address] [address] [employer]: Rodrick Jones MD MCHC (RBC) [Mass/Vol] 31.5 g/dL Normal 28.4-34.8 [facility] Comment on above: Performed By: #### C RP, RENP, CBC, MG #### [place] [address] [employer]: Rodrick Jones MD MCV (RBC) [Entitic vol] 97.4 fL Normal 82.6-102.9 [facility] Comment on above: Performed By: #### C RP, RENP, CBC, MG #### [facility] [address] [place] [address] [employer]: Rodrick Jones MD NRBC Automated 0.0 per 100 WBC Normal 0.0 [facility] Comment on above: Performed By: #### C RP, RENP, CBC, MG #### [facility] [address] [place] [address] [employer]: Rodrick Jones MD Platelet mean volume (Bld) [Entitic vol] 9.9 fL Normal 8.1-13.5 [facility] Comment on above: Performed By: #### C RP, RENP, CBC, MG #### [email or web address] [place] [address] [employer] [place]: Rodrick Jones MD Platelets (Bld) [#/Vol] 301 10*3/uL Normal 138-453 [facility] Comment on above: Performed By: #### C RP, RENP, CBC, MG #### [email or web address] [place] [address] [employer]: Rodrick Jones MD RBC (Bld) [#/Vol] 3.81 10*6/uL Low 4.21-5.77 [facility] Comment on above: Performed By: #### C RP, RENP, CBC, MG #### [facility] [address] [place] [address] [employer]: Rodrick Jones MD WBC (Bld) [#/Vol] 13.5 10*3/uL High 3.5-11.3 [facility] Comment on above: Performed By: #### C RP, RENP, CBC, MG #### [facility] [place] [address] [employer]: Rodrick Jones MD Hematocrit (Bld) [Volume fraction] 37.1 % Low 40.7 - 50.3 % [facility] Hemoglobin (Bld) [Mass/Vol] 11.7 g/dL Low 13.0 - 17.0 g/dL [facility] Interpretation and review of laboratory results Abnormal [facility] MCH (RBC) [Entitic mass] 30.7 pg 25.2 - 33.5 pg [facility] MCHC (RBC) [Mass/Vol] 31.5 g/dL 28.4 - 34.8 g/dL [facility] MCV (RBC) [Entitic vol] 97.4 fL 82.6 - 102.9 fL [facility] NRBC Automated 0.0 0.0 per 100 WBC [employer] Platelet distribution width (Bld) [Ratio] 13.5 % 11.8 - 14.4 % [facility] [employer] Platelet mean volume (Bld) [Entitic vol] 9.9 fL 8.1 - 13.5 fL [facility] [employer] Platelets (Bld) [#/Vol] 301 10*3/uL [facility] [employer] RBC (Bld) [#/Vol] 3.81 10*6/uL Low 4.21 - 5.7 7 m/uL 3D [employer] [facility] [employer] WBC (Bld) [#/Vol] 13.5 10*3/uL High [facility] [employer] [facility] IR TUNNELED CVC PLACE WO SQ PORT/PUMP > 5 YEARSon 06-28-2022 MHPN RIS CONSOLIDATED MHPN RIS CONSOLIDATED [employer] Work Phone: LIANAI Work Phone: Radiology Study observation (narrative) [employer] Work Phone: POC Glucose Fingerstickon Glucose [Mass/Vol] 181 mg/dL High 75 - 110 mg/dL [facility] Interpretation and review of laboratory results Abnormal [facility] [facility] Glucose [Mass/Vol] 197 mg/dL High 75 - 110 mg/dL [facility] [employer] Interpretation and review of laboratory results Abnormal [facility] Glucose [Mass/Vol] 180 mg/dL High 75 - 110 mg/dL [facility] [employer] Interpretation and review of laboratory results Abnormal [facility] Glucose [Mass/Vol] 137 mg/dL High 75 - 110 mg/dL [facility] [employer] Interpretation and review of laboratory results Abnormal [facility] [employer] [facility] [employer] [facility] PTon 06-28-2022 INR Coag (PPP) [Relative time] 1.0 {INR} Normal [facility] Comment on above: Result Comment: Therapeutic Range: Moderate Anticoagulant Intensity: INR = 2.0-3.0 High Anticoagulant Intensity: INR = 2.5-3.5 Performed By: #### B MP, CBC #### [facility] [address] [place] [address] [employer]: Rodrick Jonse MD PT Coag (PPP) [Time] 11.1 s Normal 9.1-12.3 [facility] Comment on above: Performed By: #### B MP, CBC #### [facility] [address] [place] [address] [employer]: Rodrick Jones MD [employer] INR Coag (PPP) [Relative time] 1.0 {INR} [facility] PT Coag (PPP) [Time] 11.1 s [facility] Basic Metab w/rfx MGon 06-270 Anion gap [Moles/Vol] 15 mmol/L Normal 9-17 [facility] Comment on above: Performed By: #### B CECY, CBC #### [facility] [address] [place] [address] [employer]: Rodrick Jones MD Calcium [Mass/Vol] 9.2 mg/dL Normal 8.6-10.4 [facility] Comment on above: Performed By: #### B MP, CBC #### [facility] [address] [place] [address] [employer]: Rodrick Jones MD Chloride [Moles/Vol] 100 mmol/L Normal 98-107 [facility] Comment on above: Performed By: #### B MP, CBC #### [facility] [address] [place] [address] [employer]: Rodrick Jones MD CO2 [Moles/Vol] 25 mmol/L Normal 20-31 [facility] Comment on above: Performed By: #### B MP, CBC #### [facility] [address] [place] [address] [employer]: Rodrick Jones MD Creatinine [Mass/Vol] 4.39 mg/dL High 0.70-1.20 [facility] Comment on above: Performed By: #### B CECY, CBC #### [facility] [address] [place] [address] [employer]: Rodrick Jones MD GFR/1.73 sq M.predicted among non-blacks MDRD (S/P/Bld) [Vol rate/Area] 15 mL/min/{1.73_m2} Low >60 [facility] Comment on above: Result Comment: These results are not intended for use in patients <18 years of age. eGFR results are calculated without a race factor using the 2020 CKD-EPI equation. Careful clinical correlation is recommended, particularly when comparing to results calculated using previous equations. The CKD-EPI equation is less accurate in patients with extremes of muscle mass, extra-renal metabolism of creatine, excessive creatine ingestion, or following therapy that affects renal tubular secretion. Performed By: #### B CECY, CBC #### [facility] [address] [place] [address] [employer]: Rodrick Jones MD Glucose [Mass/Vol] 120 mg/dL High 70-99 [facility] Comment on above: Performed By: #### B CECY, CBC #### [facility] [address] [place] [address] [employer]: Rodrick Jones MD Potassium [Moles/Vol] 3.7 mmol/L Normal 3.7-5.3 [facility] Comment on above: Performed By: #### B MP, CBC #### [facility] [address] [place] [address] [employer]: Rodrick Jones MD Sodium [Moles/Vol] 140 mmol/L Normal 135-144 [facility] Comment on above: Performed By: #### B CECY, CBC #### [facility] [address] [place] [address] [employer]: Rodrick Jones MD Urea nitrogen [Mass/Vol] 35 mg/dL High 8-23 [facility] Comment on above: Performed By: #### B MP, CBC #### [facility] [address] [place] [address] [employer]: Rodrick Jones MD Basic Metabolic Panel w/ Ref artis to MGon 06-27-2022 Anion gap [Moles/Vol] 15 mmol/L 9 - 17 mmol/L [facility] Calcium [Mass/Vol] 9.2 mg/dL 8.6 - 10. 4 mg/dL [facility] Chloride [Moles/Vol] 100 mmol/L 98 - 10 7 mmol/L [facility] CO2 [Moles/Vol] 25 mmol/L 20 - 31 mmol/L [facility] Creatinine [Mass/Vol] 4.39 mg/dL High 0.70 - 1.20 mg/dL [facility] GFR/1.73 sq M.predicted MDRD (S/P/Bld) [Vol rate/Area] 15 mL/min/{1.73_m2} Low - PINF [facility] Glucose [Mass/Vol] 120 mg/dL High 70 - 99 mg/dL [facility] Interpretation and review of laboratory results Abnormal [facility] Potassium [Moles/Vol] 3.7 mmol/L 3.7 - 5.3 mmol/L [facility] Sodium [Moles/Vol] 140 mmol/L 135 - 144 mmol/L [facility] Urea nitrogen [Mass/Vol] 35 mg/dL High 8 - 23 mg/dL [facility] CBC with Auto Differentialon 06-27-2022 Absolute Eos # 0.48 High [facility] Absolute Immature Granulocyte 0.47 High [facility] Absolute Lymph # 2.72 [facility] Absolute [place] # 0.95 [facility] Basophils (Bld) [#/Vol] 0.15 10*3/uL [facility] Basophils/100 WBC (Bld) 1 % 0 - 2 % [facility] Eosinophils/100 WBC (Bld) 3 % 1 - 4 % [facility] Hematocrit (Bld) [Volume fraction] 34.5 % Low 40.7 - 50.3 % [facility] Hemoglobin (Bld) [Mass/Vol] 11.9 g/dL Low 13.0 - 17.0 g/dL [facility] Immature granulocytes/100 WBC (Bld) 3 % High 0 [facility] Interpretation and review of laboratory results Abnormal [facility] Lymphocytes/100 WBC (Bld) 19 % Low 24 - 43 % [facility] MCH (RBC) [Entitic mass] 33.3 pg 25.2 - 33.5 pg [facility] MCHC (RBC) [Mass/Vol] 34.5 g/dL 28.4 - 34.8 g/dL [facility] MCV (RBC) [Entitic vol] 96.6 fL 82.6 - 102.9 fL [facility] Monocytes/100 WBC (Bld) 7 % 3 - 12 % [facility] NRBC Automated 0.0 0.0 per 100 WBC [facility] Platelet distribution width (Bld) [Ratio] 14.1 % 11.8 - 14.4 % [facility] Platelet mean volume (Bld) [Entitic vol] 11.9 fL 8.1 - 13.5 fL [facility] Platelets (Bld) [#/Vol] 487 10*3/uL High [facility] RBC (Bld) [#/Vol] 3.57 10*6/uL Low 4.21 - 5.7 7 m/uL [facility] Seg Neutrophils 66 % High 36 - 65 % [facility] Segs Absolute 9.37 High [facility] WBC (Bld) [#/Vol] 14.1 10*3/uL High [facility] CBC with Diffon 06-27-2022 Abs. Basophil 0.15 k/uL Normal 0.00-0.20 [facility] Comment on above: Performed By: #### B MP, CBC #### [facility] [address] [place] [address] [employer]: Rodrick Jones MD Abs.Imm.Granulocyte 0.47 k/uL High 0.00-0.30 [facility] Comment on above: Performed By: #### B MP, CBC #### [address] [address] [employer]: Rodrick Jones MD Abs.Neutrophil (Seg) 9.37 k/uL High 1.50-8.10 [facility] Comment on above: Performed By: #### B MP, CBC #### [address] [address] [employer]: Rodrick Jones MD Basophils/100 WBC (Bld) 1 % Normal 0-2 [facility] Comment on above: Performed By: #### B MP, CBC #### [place] [address] [employer]: Rodrick Jones MD Eosinophils (Bld) [#/Vol] 0.48 10*3/uL High 0.00-0.44 [facility] Comment on above: Performed By: #### B MP, CBC #### [address] [address] [employer]: Rodrick Jones MD Eosinophils/100 WBC (Bld) 3 % Normal 1-4 [facility] Comment on above: Performed By: #### B MP, CBC #### [place] [address] [employer]: Rodrick Jones MD Erythrocyte distribution width (RBC) [Ratio] 14.1 % Normal 11.8-14.4 [facility] Comment on above: Performed By: #### B MP, CBC #### [address] [address] [employer]: Rodrick Jones MD Hematocrit (Bld) [Volume fraction] 34.5 % Low 40.7-50.3 [facility] Comment on above: Performed By: #### B MP, CBC #### [address] [address] [employer]: Rodrick Jones MD Hemoglobin (Bld) [Mass/Vol] 11.9 g/dL Low 13.0-17.0 [facility] Comment on above: Performed By: #### B MP, CBC #### [address] [address] [employer]: Rodrick Jones MD Immature granulocytes/100 WBC (Bld) 3 % High 0 [facility] Comment on above: Performed By: #### B MP, CBC #### [address] [address] [employer]: Rodrick Jones MD Lymphocytes (Bld) [#/Vol] 2.72 10*3/uL Normal 1.10-3.70 [facility] Comment on above: Performed By: #### B MP, CBC #### [address] [address] [employer]: Rodrick Jones MD Lymphocytes/100 WBC (Bld) 19 % Low 24-43 [facility] Comment on above: Performed By: #### B MP, CBC #### [address] [address] [employer]: Rodrick Jones MD MCH (RBC) [Entitic mass] 33.3 pg Normal 25.2-33.5 [facility] Comment on above: Performed By: #### B MP, CBC #### [address] [address] [employer]: Rodrick Jones MD MCHC (RBC) [Mass/Vol] 34.5 g/dL Normal 28.4-34.8 [facility] Comment on above: Performed By: #### B MP, CBC #### [address] [address] [employer]: Rodrick Jones MD MCV (RBC) [Entitic vol] 96.6 fL Normal 82.6-102.9 [facility] Comment on above: Performed By: #### B MP, CBC #### [address] [address] [employer]: Rodrick Jones MD Monocytes (Bld) [#/Vol] 0.95 10*3/uL Normal 0.10-1.20 [facility] Comment on above: Performed By: #### B MP, CBC #### [address] [address] [employer]: Rodrick Jones MD Monocytes/100 WBC (Bld) 7 % Normal 3-12 [facility] Comment on above: Performed By: #### B MP, CBC #### [address] [address] [employer]: Rodrick Jones MD Neutrophil (Seg) 66 % High 36-65 [facility] Comment on above: Performed By: #### B MP, CBC #### [address] [address] [employer]: Rodrick Jones MD NRBC Automated 0.0 per 100 WBC Normal 0.0 [facility] Comment on above: Performed By: #### B MP, CBC #### [address] [address] [employer]: Rodrick Jones MD Platelet mean volume (Bld) [Entitic vol] 11.9 fL Normal 8.1-13.5 [facility] Comment on above: Performed By: #### B MP, CBC #### [address] [address] [employer]: Rodrick Jones MD Platelets (Bld) [#/Vol] 487 10*3/uL High 138-453 [facility] Comment on above: Performed By: #### B MP, CBC #### [facility] [address] [place] [address] [employer]: Rodrick Jones MD RBC (Bld) [#/Vol] 3.57 10*6/uL Low 4.21-5.77 [facility] Comment on above: Performed By: #### B MP, CBC #### [facility] [address] [place] [address] [employer]: Rodrick Jones MD WBC (Bld) [#/Vol] 14.1 10*3/uL High 3.5-11.3 [facility] Comment on above: Performed By: #### B MP, CBC #### [email or web address] [address] [place] [address] [employer]: Rodrick Jones MD POC Glucose Fingerstickon Glucose [Mass/Vol] 167 mg/dL High 75 - 110 mg/dL [facility] Interpretation and review of laboratory results Abnormal [facility] Glucose [Mass/Vol] 171 mg/dL High 75 - 110 mg/dL [facility] Interpretation and review of laboratory results Abnormal [facility] Glucose [Mass/Vol] 196 mg/dL High 75 - 110 mg/dL [facility] Interpretation and review of laboratory results Abnormal [facility] Glucose [Mass/Vol] 117 mg/dL High 75 - 110 mg/dL [facility] Interpretation and review of laboratory results Abnormal [facility] Arterial Blood Gas, POCon [place] Test Positive [facility] FIO2 30.0 [facility] HCO3 (Bld) [Moles/Vol] 27.8 mmol/L 21.0 - 28.0 mmol/L [facility] Interpretation and review of laboratory results Abnormal [facility] Mode CPAP/PS [facility] O2 Device/Flow/% CPAP [facility] Oxygen saturation in Blood 96 % 94.0 - 98.0 % [facility] POC pCO2 42.6 [facility] POC pH 7.423 7.350 - 7.450 [facility] POC PO2 78.7 Low [facility] Positive Base Excess, Art 3 0.0 - 3.0 [facility] Sample Site Left Radial Artery [facility] SOM [facility] Basic Metab w/rfx MGon 06-26 Anion gap [Moles/Vol] 15 mmol/L Normal 9-17 [facility] Comment on above: Performed By: #### B MP, CBC #### [facility] [address] [place] [address] [employer]: Rodrick Jones MD Calcium [Mass/Vol] 9.0 mg/dL Normal 8.6-10.4 [facility] Comment on above: Performed By: #### B MP, CBC #### [facility] [address] [place] [address] [employer]: Rodrick Jones MD Chloride [Moles/Vol] 100 mmol/L Normal 98-107 [facility] Comment on above: Performed By: #### B MP, CBC #### [facility] [address] [place] [address] [employer]: Rodrick Jones MD CO2 [Moles/Vol] 23 mmol/L Normal 20-31 [facility] Comment on above: Performed By: #### B MP, CBC #### [facility] [address] [place] [address] [employer]: Rodrick Jones MD Creatinine [Mass/Vol] 3.79 mg/dL High 0.70-1.20 [facility] Comment on above: Performed By: #### B MP, CBC #### [facility] [address] [place] [address] [employer]: Rodrick Jones MD GFR/1.73 sq M.predicted among non-blacks MDRD (S/P/Bld) [Vol rate/Area] 17 mL/min/{1.73_m2} Low >60 [facility] Comment on above: Result Comment: These results are not intended for use in patients <18 years of age. eGFR results are calculated without a race factor using the 2020 CKD-EPI equation. Careful clinical correlation is recommended, particularly when comparing to results calculated using previous equations. The CKD-EPI equation is less accurate in patients with extremes of muscle mass, extra-renal metabolism of creatine, excessive creatine ingestion, or following therapy that affects renal tubular secretion. Performed By: #### B MP, CBC #### [facility] [address] [place] [address] [employer]: Rodrick Jones MD Glucose [Mass/Vol] 130 mg/dL High 70-99 [facility] Comment on above: Performed By: #### B MP, CBC #### [facility] [address] [place] [address] [employer]: Rodrick Jones MD Potassium [Moles/Vol] 3.6 mmol/L Low 3.7-5.3 [facility] Comment on above: Performed By: #### B MP, CBC #### [facility] [address] [place] [address] [employer]: Rodrick Jones MD Sodium [Moles/Vol] 138 mmol/L Normal 135-144 [facility] Comment on above: Performed By: #### B MP, CBC #### [facility] [address] [place] [address] [employer]: Rodrick Jones MD Urea nitrogen [Mass/Vol] 31 mg/dL High 8-23 [facility] Comment on above: Performed By: #### B MP, CBC #### [facility] [address] [place] [address] [employer]: Rodrick Jones MD Basic Metabolic Panel w/ Ref artis to MGon 06-26-2022 Anion gap [Moles/Vol] 15 mmol/L 9 - 17 mmol/L [facility] Calcium [Mass/Vol] 9.0 mg/dL 8.6 - 10. 4 mg/dL [facility] Chloride [Moles/Vol] 100 mmol/L 98 - 10 7 mmol/L [facility] CO2 [Moles/Vol] 23 mmol/L 20 - 31 mmol/L [facility] Creatinine [Mass/Vol] 3.79 mg/dL High 0.70 - 1.20 mg/dL [facility] GFR/1.73 sq M.predicted MDRD (S/P/Bld) [Vol rate/Area] 17 mL/min/{1.73_m2} Low - PINF [facility] Glucose [Mass/Vol] 130 mg/dL High 70 - 99 mg/dL [facility] Interpretation and review of laboratory results Abnormal [facility] Potassium [Moles/Vol] 3.6 mmol/L Low 3.7 - 5.3 mmol/L [facility] Sodium [Moles/Vol] 138 mmol/L 135 - 144 mmol/L [facility] Urea nitrogen [Mass/Vol] 31 mg/dL High 8 - 23 mg/dL [facility] CBCon 0 Erythrocyte distribution width (RBC) [Ratio] 13.3 % Normal 11.8-14.4 [facility] Comment on above: Performed By: #### B MP, CBC #### [email or web address] [address] [place], [place] [id number] [employer]: Rodrick Jones MD Hematocrit (Bld) [Volume fraction] 37.5 % Low 40.7-50.3 [facility] Comment on above: Performed By: #### B MP, CBC #### [email or web address] [address] [place], [place] [id number] [employer]: Rodrick Jones MD Hemoglobin (Bld) [Mass/Vol] 12.1 g/dL Low 13.0-17.0 [facility] Comment on above: Performed By: #### B MP, CBC #### [address] [address] [employer]: Rodrick Jones MD MCH (RBC) [Entitic mass] 30.8 pg Normal 25.2-33.5 [facility] Comment on above: Performed By: #### B MP, CBC #### [place] [address] [employer]: Rodrick Jones MD MCHC (RBC) [Mass/Vol] 32.3 g/dL Normal 28.4-34.8 [facility] Comment on above: Performed By: #### B MP, CBC #### [place] [address] [employer]: Rodrick Jones MD MCV (RBC) [Entitic vol] 95.4 fL Normal 82.6-102.9 [facility] Comment on above: Performed By: #### B MP, CBC #### [address] [address] [employer]: Rodrick Jones MD NRBC Automated 0.0 per 100 WBC Normal 0.0 [facility] Comment on above: Performed By: #### B MP, CBC #### [place] [address] [employer]: Rodrick Jones MD Platelet mean volume (Bld) [Entitic vol] 10.0 fL Normal 8.1-13.5 [facility] Comment on above: Performed By: #### B MP, CBC #### [address] [address] [employer]: Rodrick Jones MD Platelets (Bld) [#/Vol] 299 10*3/uL Normal 138-453 [facility] Comment on above: Performed By: #### B MP, CBC #### [email or web address] [address] [place], [place] [id number] [employer]: Rodrick Jones MD RBC (Bld) [#/Vol] 3.93 10*6/uL Low 4.21-5.77 [facility] Comment on above: Performed By: #### B MP, CBC #### [email or web address] [address] [place], [place] [id number] [employer]: Rodrick Jones MD WBC (Bld) [#/Vol] 13.7 10*3/uL High 3.5-11.3 [facility] Comment on above: Performed By: #### B MP, CBC #### [email or web address] [address] [place], [place] [id number] [employer]: Rodrick Jones MD Hematocrit (Bld) [Volume fraction] 37.5 % Low 40.7 - 50.3 % [facility] Hemoglobin (Bld) [Mass/Vol] 12.1 g/dL Low 13.0 - 17.0 g/dL [facility] Interpretation and review of laboratory results Abnormal [facility] MCH (RBC) [Entitic mass] 30.8 pg 25.2 - 33.5 pg [facility] MCHC (RBC) [Mass/Vol] 32.3 g/dL 28.4 - 34.8 g/dL [facility] MCV (RBC) [Entitic vol] 95.4 fL 82.6 - 102.9 fL [facility] NRBC Automated 0.0 0.0 per 100 WBC [facility] Platelet distribution width (Bld) [Ratio] 13.3 % 11.8 - 14.4 % [facility] Platelet mean volume (Bld) [Entitic vol] 10.0 fL 8.1 - 13.5 fL [facility] Platelets (Bld) [#/Vol] 299 10*3/uL [facility] RBC (Bld) [#/Vol] 3.93 10*6/uL Low 4.21 - 5.7 7 m/uL [facility] WBC (Bld) [#/Vol] 13.7 10*3/uL High [place] [facility] CT HEAD WO CONTRASTon 2022 CT HEAD WO CONTRAST EXAMINATION: CT OF THE HEAD WITHOUT CONTRAST 06/26/2022 2:05 pm TECHNIQUE: CT of the head was performed without the administration of intravenous contrast. Automated exposure control, iterative reconstruction, and/or weight based adjustment of the mA/kV was utilized to reduce the radiation dose to as low as reasonably achievable. COMPARISON: 06/20/2022 and prior HISTORY: ORDERING SYSTEM PROVIDED HISTORY: worsening mentation TECHNOLOGIST PROVIDED HISTORY: worsening mentation Reason for Exam: WORSENING MENTATION FINDINGS: BRAIN/VENTRICLES: There is no acute intracranial hemorrhage, mass effect, or midline shift. No abnormal extra-axial fluid collection. The browne-white differentiation is maintained without evidence of an acute infarct. There is no evidence of hydrocephalus. Ventricles, sulci, and basilar cisterns are normal. No white matter lesions. ORBITS: The visualized portion of the orbits demonstrate no acute abnormality. SINUSES: The visualized paranasal sinuses and mastoid air cells demonstrate no acute abnormality. SOFT TISSUES/SKULL: No acute abnormality of the visualized skull or soft tissues. IMPRESSION: No acute intracranial abnormality. Interpreted by: Justin Villanueva DO Signed by: Justin Villanueva DO 06/26/22 Final result Normal [facility] MHPN RIS CONSOLIDATED PN RIS CONSOLIDATED [facility] Phone: Radiology Study observation (narrative) [facility] [employer] Phone: CT HEAD WO CONTRASTOrdered B y: Justin Villanueva on 06-26-2022 [facility] Work Phone: Magnesiumon 06-26-2022 Magnesium [Mass/Vol] 2.0 mg/dL Normal 1.6-2.6 [facility] Comment on above: Performed By: #### B MP, CBC #### [facility] [address] [place] [address] [employer]: Rodrick Jones MD Magnesium [Mass/Vol] 2.0 mg/dL 1.6 - 2 .6 mg/dL [facility] No Panel Informationon 06-26 [facility] POC Glucose Fingerstickon Glucose [Mass/Vol] 158 mg/dL High 75 - 110 mg/dL [facility] Interpretation and review of laboratory results Abnormal [facility] Glucose [Mass/Vol] 140 mg/dL High 75 - 110 mg/dL [facility] Interpretation and review of laboratory results Abnormal [facility] Glucose [Mass/Vol] 134 mg/dL High 75 - 110 mg/dL [facility] Interpretation and review of laboratory results Abnormal [facility] Glucose [Mass/Vol] 152 mg/dL High 75 - 110 mg/dL [facility] Interpretation and review of laboratory results Abnormal [facility] Glucose [Mass/Vol] 122 mg/dL High 75 - 110 mg/dL [facility] Interpretation and review of laboratory results Abnormal [facility] XR CHEST PORTABLEon 06-27-19 XR CHEST PORTABLE EXAMINATION: ONE XRAY VIEW OF THE CHEST 06/26/2022 1:28 pm COMPARISON: Chest radiograph performed 06/20/2022. HISTORY: ORDERING SYSTEM PROVIDED HISTORY: mentation TECHNOLOGIST PROVIDED HISTORY: mentation FINDINGS: There is no acute consolidation or effusion. There is no pneumothorax. The mediastinal structures are unremarkable. The upper abdomen is unremarkable. The extrathoracic soft tissues are unremarkable. There is no acute osseous abnormality. There is a right internal jugular line with the tip near the cavoatrial junction. IMPRESSION: No acute cardiopulmonary process. Right internal jugular line with the tip near the cavoatrial junction. Interpreted by: Ankush Palomino MD Signed by: Ankush Palomino MD 06/26/22 Final result Normal [facility] MHPN RIS CONSOLIDATED MHPN RIS CONSOLIDATED [facility] Work Phone: Radiology Study observation (narrative) [facility] Phone: XR CHEST PORTABLEOrdered By: Ankush Palomino on 06-26-2022 [facility] Work Phone: Basic Metab w/rfx MGon 06-25 Anion gap [Moles/Vol] 15 mmol/L Normal 9-17 [facility] Comment on above: Performed By: #### B MP, CBC #### [address] [address] [place]: Rodrick Jones MD Calcium [Mass/Vol] 8.9 mg/dL Normal 8.6-10.4 [facility] Comment on above: Performed By: #### B MP, CBC #### [address] [address] [employer] [place]: Rodrick Jones MD Chloride [Moles/Vol] 101 mmol/L Normal 98-107 [facility] Comment on above: Performed By: #### B CECY, CBC #### [facility] [address] [place] [address] [employer]: Rodrick Jones MD CO2 [Moles/Vol] 23 mmol/L Normal 20-31 [facility] Comment on above: Performed By: #### B MP, CBC #### [facility] [address] [place] [address] [employer]: Rodrick Jones MD Creatinine [Mass/Vol] 4.65 mg/dL High 0.70-1.20 [facility] Comment on above: Performed By: #### B MP, CBC #### [facility] [address] [place] [address] [employer]: Rodrick Jones MD GFR/1.73 sq M.predicted among non-blacks MDRD (S/P/Bld) [Vol rate/Area] 14 mL/min/{1.73_m2} Low >60 [facility] Comment on above: Result Comment: These results are not intended for use in patients <18 years of age. eGFR results are calculated without a race factor using the 2021 CKD-EPI equation. Careful clinical correlation is recommended, particularly when comparing to results calculated using previous equations. The CKD-EPI equation is less accurate in patients with extremes of muscle mass, extra-renal metabolism of creatine, excessive creatine ingestion, or following therapy that affects renal tubular secretion. Performed By: #### B CECY, CBC #### [facility] [address] [place] [address] [employer] [place]: Rodrick Jones MD Glucose [Mass/Vol] 205 mg/dL High 70-99 [facility] Comment on above: Performed By: #### B MP, CBC #### [facility] [address] [place] [address] [employer]: Rodrick Jones MD Potassium [Moles/Vol] 3.7 mmol/L Normal 3.7-5.3 [facility] Comment on above: Performed By: #### B CECY, CBC #### [facility] [address] [place] [address] [employer]: Rodrick Jones MD Sodium [Moles/Vol] 139 mmol/L Normal 135-144 [facility] Comment on above: Performed By: #### B MP, CBC #### [facility] [address] [place] [address] [employer]: Rodrick Jones MD Urea nitrogen [Mass/Vol] 41 mg/dL High 8-23 [facility] Comment on above: Performed By: #### B MP, CBC #### [facility] [address] [place] [address] [employer]: Rodrick Jones MD Anion gap [Moles/Vol] 15 mmol/L Normal 9-17 [facility] Comment on above: Performed By: #### B MP, CBC #### [facility] [address] [place] [address] [employer]: Rodrick Jones MD Chloride [Moles/Vol] 99 mmol/L Normal 98-107 [facility] Comment on above: Performed By: #### B MP, CBC #### [facility] [address] [place], [place] [phone] [employer]: Rodrick Jones MD Potassium [Moles/Vol] 3.8 mmol/L Normal 3.7-5.3 [facility] Comment on above: Performed By: #### B MP, CBC #### [facility] [address] [place], [place] [phone] [employer]: Rodrick Jones MD Sodium [Moles/Vol] 137 mmol/L Normal 135-144 [facility] Comment on above: Performed By: #### B CECY, CBC #### [facility] [address] [place], [place] [phone] [employer]: Rodrick Jones MD Basic Metabolic Panel w/ Ref artis to MGon 06-25-2022 Anion gap [Moles/Vol] 15 mmol/L 9 - 17 mmol/L [facility] Calcium [Mass/Vol] 8.9 mg/dL 8.6 - 10. 4 mg/dL [facility] Chloride [Moles/Vol] 101 mmol/L 98 - 10 7 mmol/L [facility] CO2 [Moles/Vol] 23 mmol/L 20 - 31 mmol/L [facility] Creatinine [Mass/Vol] 4.65 mg/dL High 0.70 - 1.20 mg/dL [facility] GFR/1.73 sq M.predicted MDRD (S/P/Bld) [Vol rate/Area] 14 mL/min/{1.73_m2} Low - PINF [facility] Glucose [Mass/Vol] 205 mg/dL High 70 - 99 mg/dL [facility] Interpretation and review of laboratory results Abnormal [facility] Potassium [Moles/Vol] 3.7 mmol/L 3.7 - 5.3 mmol/L [facility] Sodium [Moles/Vol] 139 mmol/L 135 - 144 mmol/L [facility] [employer] [facility] Urea nitrogen [Mass/Vol] 41 mg/dL High 8 - 23 mg/dL [facility] CBCon 06-25-2022 Erythrocyte distribution width (RBC) [Ratio] 13.6 % Normal 11.8-14.4 [facility] Comment on above: Performed By: #### B MP, CBC #### [address] [address] [employer]: Rodrick Jones MD Hematocrit (Bld) [Volume fraction] 36.9 % Low 40.7-50.3 [facility] Comment on above: Performed By: #### B MP, CBC #### [address] [address] [employer]: Rodrick Jones MD Hemoglobin (Bld) [Mass/Vol] 12.0 g/dL Low 13.0-17.0 [facility] Comment on above: Performed By: #### B MP, CBC #### [address] [address] [employer]: Rodrick Jones MD MCH (RBC) [Entitic mass] 31.0 pg Normal 25.2-33.5 [facility] Comment on above: Performed By: #### B MP, CBC #### [address] [address] [employer]: Rodrick Jones MD MCHC (RBC) [Mass/Vol] 32.5 g/dL Normal 28.4-34.8 [facility] Comment on above: Performed By: #### B MP, CBC #### [address] [address] [employer]: Rodrick Joens MD MCV (RBC) [Entitic vol] 95.3 fL Normal 82.6-102.9 [facility] Comment on above: Performed By: #### B MP, CBC #### [address] [address] [employer]: Rodrick Jones MD NRBC Automated 0.0 per 100 WBC Normal 0.0 [facility] Comment on above: Performed By: #### B MP, CBC #### [facility] [address] [place] [address] [employer]: Rodrick Jones MD Platelet mean volume (Bld) [Entitic vol] 10.0 fL Normal 8.1-13.5 [facility] Comment on above: Performed By: #### B MP, CBC #### [facility] [address] [place] [address] [employer]: Rodrick Jones MD Platelets (Bld) [#/Vol] 283 10*3/uL Normal 138-453 [facility] Comment on above: Performed By: #### B MP, CBC #### [address] [address] [employer]: Rodrick Jones MD RBC (Bld) [#/Vol] 3.87 10*6/uL Low 4.21-5.77 [facility] Comment on above: Performed By: #### B MP, CBC #### [facility] [address] [place] [address] [employer]: Rodrick Jones MD WBC (Bld) [#/Vol] 10.9 10*3/uL Normal 3.5-11.3 [facility] Comment on above: Performed By: #### B MP, CBC #### [address] [address] [employer]: Rodrick Jones MD Hematocrit (Bld) [Volume fraction] 36.9 % Low 40.7 - 50.3 % [facility] Hemoglobin (Bld) [Mass/Vol] 12.0 g/dL Low 13.0 - 17.0 g/dL [facility] [employer] [facility] Interpretation and review of laboratory results Abnormal [facility] [employer] [facility] MCH (RBC) [Entitic mass] 31.0 pg 25.2 - 33.5 pg [facility] MCHC (RBC) [Mass/Vol] 32.5 g/dL 28.4 - 34.8 g/dL [facility] MCV (RBC) [Entitic vol] 95.3 fL 82.6 - 102.9 fL [facility] NRBC Automated 0.0 0.0 per 100 WBC [facility] Platelet distribution width (Bld) [Ratio] 13.6 % 11.8 - 14.4 % [facility] Platelet mean volume (Bld) [Entitic vol] 10.0 fL 8.1 - 13.5 fL [facility] Platelets (Bld) [#/Vol] 283 10*3/uL [facility] RBC (Bld) [#/Vol] 3.87 10*6/uL Low 4.21 - 5.7 7 m/uL [facility] WBC (Bld) [#/Vol] 10.9 10*3/uL [facility] [facility] Cult,Bloodon 06-25-2022 Cult,Blood Specimen Description .BLOOD Special Requests RAC 10ML Culture NO GROWTH 5 DAYS Report Status FINAL 06/25/2022 [facility] Comment on above: Performed By: #### C RP, RENP, CBC, MG #### [facility] [address] [place] [address] [employer]: Rodrick Jones MD Cult,Blood Specimen Description .BLOOD Special Requests LFA 10ML Culture NO GROWTH 5 DAYS Report Status FINAL 06/25/2022 [facility] Comment on above: Performed By: #### B MP, CBC #### [facility] [address] [place], [place] [phone] [employer]: Rodrick Jones MD Culture, Blood 1on 3 Service comment (Unsp spec) [Interp] LFA 10ML [facility] Service comment (Unsp spec) [Interp] RAC 10ML [facility] Laboratoryon 06-25-2022 Microorganism identified Cx Nom (Unsp spec) NO GROWTH 5 DAYS [facility] Magnesiumon 06-25-2022 Magnesium [Mass/Vol] 1.9 mg/dL Normal 1.6-2.6 [facility] Comment on above: Performed By: #### B MP, CBC #### [facility] [address] [place], [place] [id number] [employer]: Rodrick Jones MD Magnesium [Mass/Vol] 1.9 mg/dL 1.6 - 2 .6 mg/dL [facility] No Panel Informationon 06-25 [facility] Specimen Description .BLOOD [facility] POC Glucose Fingerstickon Glucose [Mass/Vol] 173 mg/dL High 75 - 110 mg/dL [facility] Interpretation and review of laboratory results Abnormal [facility] Glucose [Mass/Vol] 207 mg/dL High 75 - 110 mg/dL [facility] Interpretation and review of laboratory results Abnormal [facility] Glucose [Mass/Vol] 161 mg/dL High 75 - 110 mg/dL [facility] Interpretation and review of laboratory results Abnormal [facility] Glucose [Mass/Vol] 224 mg/dL High 75 - 110 mg/dL [facility] Interpretation and review of laboratory results Abnormal [facility] Glucose [Mass/Vol] 206 mg/dL High 75 - 110 mg/dL [facility] Interpretation and review of laboratory results Abnormal [facility] Basic Metab w/rfx MGon 06-24 Calcium [Mass/Vol] 8.3 mg/dL Low 8.6-10.4 [facility] Comment on above: Performed By: #### B MP, CBC #### [facility] [address] [place], [place] [phone] [employer]: Rodrcik Jones MD CO2 [Moles/Vol] 23 mmol/L Normal 20-31 [facility] Comment on above: Performed By: #### B MP, CBC #### [facility] [address] [place] [address] [employer]: Rodrick Jones MD Creatinine [Mass/Vol] 4.24 mg/dL High 0.70-1.20 [facility] Comment on above: Performed By: #### B MP, CBC #### [facility] [address] [place] [address] [employer]: Rodrick Jones MD GFR/1.73 sq M.predicted among non-blacks MDRD (S/P/Bld) [Vol rate/Area] 15 mL/min/{1.73_m2} Low >60 [facility] Comment on above: Result Comment: These results are not intended for use in patients <18 years of age. eGFR results are calculated without a race factor using the 2020 CKD-EPI equation. Careful clinical correlation is recommended, particularly when comparing to results calculated using previous equations. The CKD-EPI equation is less accurate in patients with extremes of muscle mass, extra-renal metabolism of creatine, excessive creatine ingestion, or following therapy that affects renal tubular secretion. Performed By: #### B MP, CBC #### [facility] [address] [place] [address] [employer]: Rodrick Jones MD Glucose [Mass/Vol] 191 mg/dL High 70-99 [facility] Comment on above: Performed By: #### B MP, CBC #### [facility] [address] [place] [address] [employer]: Rodrick Jones MD Urea nitrogen [Mass/Vol] 39 mg/dL High 8-23 [facility] Comment on above: Performed By: #### B MP, CBC #### [facility] [address] [place] [address] [employer]: Rodrick Jones MD Creatinine [Mass/Vol] 5.19 mg/dL Critically high 0.70-1.20 [facility] Comment on above: Result Comment: Prev ious Alert Value Reported Performed By: #### C RP, RENP, CBC, MG #### [facility] [address] [place] [address] [employer]: Rodrick Jones MD GFR/1.73 sq M.predicted among non-blacks MDRD (S/P/Bld) [Vol rate/Area] 12 mL/min/{1.73_m2} Low >60 [facility] Comment on above: Result Comment: These results are not intended for use in patients <18 years of age. eGFR results are calculated without a race factor using the 2020 CKD-EPI equation. Careful clinical correlation is recommended, particularly when comparing to results calculated using previous equations. The CKD-EPI equation is less accurate in patients with extremes of muscle mass, extra-renal metabolism of creatine, excessive creatine ingestion, or following therapy that affects renal tubular secretion. Performed By: #### C RP, RENP, CBC, MG #### [address] [address] [employer]: Rodrick Jones MD Anion gap [Moles/Vol] 14 mmol/L Normal 9-17 [facility] Comment on above: Performed By: #### C RP, RENP, CBC, MG #### [facility] [address] [place] [address] [employer]: Rodrick Jones MD Calcium [Mass/Vol] 8.8 mg/dL Normal 8.6-10.4 [facility] Comment on above: Performed By: #### C RP, RENP, CBC, MG #### [facility] [address] [place] [address] [employer]: Rodrick Jones MD Chloride [Moles/Vol] 101 mmol/L Normal 98-107 [facility] Comment on above: Performed By: #### C RP, RENP, CBC, MG #### [facility] [address] [place] [address] [employer]: Rodrick Jones MD CO2 [Moles/Vol] 22 mmol/L Normal 20-31 [facility] Comment on above: Performed By: #### C RP, RENP, CBC, MG #### [facility] [address] [place] [address] [employer]: Rodrick Jones MD Glucose [Mass/Vol] 203 mg/dL High 70-99 [facility] Comment on above: Performed By: #### C RP, RENP, CBC, MG #### [facility] [address] [place] [address] [employer]: Rodrick Jones MD Potassium [Moles/Vol] 3.9 mmol/L Normal 3.7-5.3 [facility] Comment on above: Performed By: #### C RP, RENP, CBC, MG #### [facility] [address] [place] [address] [employer]: Rodrick Jones MD Sodium [Moles/Vol] 137 mmol/L Normal 135-144 [facility] Comment on above: Performed By: #### C RP, RENP, CBC, MG #### [facility] [address] [place] [phone] [employer]: Rodrick Jones MD Urea nitrogen [Mass/Vol] 52 mg/dL High 8-23 [facility] Comment on above: Performed By: #### C RP, RENP, CBC, MG #### [facility] [address] [place] [phone] [employer]: Rodrick Jones MD Basic Metabolic Panel w/ Ref artis to MGon 06-24-2022 Anion gap [Moles/Vol] 15 mmol/L 9 - 17 mmol/L [facility] Calcium [Mass/Vol] 8.3 mg/dL Low 8.6 - 10. 4 mg/dL [facility] Chloride [Moles/Vol] 99 mmol/L 98 - 10 7 mmol/L [facility] CO2 [Moles/Vol] 23 mmol/L 20 - 31 mmol/L [facility] Creatinine [Mass/Vol] 4.24 mg/dL High 0.70 - 1.20 mg/dL [facility] GFR/1.73 sq M.predicted MDRD (S/P/Bld) [Vol rate/Area] 15 mL/min/{1.73_m2} Low - PINF [facility] Glucose [Mass/Vol] 191 mg/dL High 70 - 99 mg/dL [facility] Interpretation and review of laboratory results Abnormal [facility] Potassium [Moles/Vol] 3.8 mmol/L 3.7 - 5.3 mmol/L [facility] Sodium [Moles/Vol] 137 mmol/L 135 - 144 mmol/L [facility] Urea nitrogen [Mass/Vol] 39 mg/dL High 8 - 23 mg/dL [facility] Anion gap [Moles/Vol] 14 mmol/L 9 - 17 mmol/L [facility] Calcium [Mass/Vol] 8.8 mg/dL 8.6 - 10. 4 mg/dL [facility] Chloride [Moles/Vol] 101 mmol/L 98 - 10 7 mmol/L [facility] CO2 [Moles/Vol] 22 mmol/L 20 - 31 mmol/L [facility] Creatinine [Mass/Vol] 5.19 mg/dL Critically high 0.7 0 - 1.20 mg/dL [facility] GFR/1.73 sq M.predicted MDRD (S/P/Bld) [Vol rate/Area] 12 mL/min/{1.73_m2} Low - PINF [facility] Glucose [Mass/Vol] 203 mg/dL High 70 - 99 mg/dL [facility] Interpretation and review of laboratory results Abnormal [facility] Potassium [Moles/Vol] 3.9 mmol/L 3.7 - 5.3 mmol/L [facility] Sodium [Moles/Vol] 137 mmol/L 135 - 144 mmol/L [facility] Urea nitrogen [Mass/Vol] 52 mg/dL High 8 - 23 mg/dL [facility] CBCon 06-24-2022 Erythrocyte distribution width (RBC) [Ratio] 14.0 % Normal 11.8-14.4 [facility] Comment on above: Performed By: #### C RP, RENP, CBC, MG #### [facility] [address] [place] [address] [employer]: Rodrick Jones MD Hematocrit (Bld) [Volume fraction] 35.9 % Low 40.7-50.3 [facility] Comment on above: Performed By: #### C RP, RENP, CBC, MG #### [facility] [address] [place] [address] [employer]: Rodrick Jones MD Hemoglobin (Bld) [Mass/Vol] 11.9 g/dL Low 13.0-17.0 [facility] Comment on above: Performed By: #### C RP, RENP, CBC, MG #### [facility] [address] [place] [address] [employer]: Rodrick Jones MD MCH (RBC) [Entitic mass] 31.6 pg Normal 25.2-33.5 [facility] Comment on above: Performed By: #### C RP, RENP, CBC, MG #### [facility] [address] [place] [address] [employer]: Rodrick Jones MD MCHC (RBC) [Mass/Vol] 33.1 g/dL Normal 28.4-34.8 [facility] Comment on above: Performed By: #### C RP, RENP, CBC, MG #### [facility] [address] [place] [address] [employer]: Rodrick Jones MD MCV (RBC) [Entitic vol] 95.2 fL Normal 82.6-102.9 [facility] Comment on above: Performed By: #### C RP, RENP, CBC, MG #### [facility] [address] [place] [address] [employer]: Rodrick Jones MD NRBC Automated 0.0 per 100 WBC Normal 0.0 [facility] Comment on above: Performed By: #### C RP, RENP, CBC, MG #### [facility] [address] [place] [address] [employer]: Rodrick Jones MD Platelet mean volume (Bld) [Entitic vol] 10.4 fL Normal 8.1-13.5 [facility] Comment on above: Performed By: #### C RP, RENP, CBC, MG #### [facility] [address] [place] [address] [employer]: Rodrick Jones MD Platelets (Bld) [#/Vol] 223 10*3/uL Normal 138-453 [facility] Comment on above: Performed By: #### C RP, RENP, CBC, MG #### [facility] [address] [place] [address] [employer]: Rodrick Jones MD RBC (Bld) [#/Vol] 3.77 10*6/uL Low 4.21-5.77 [facility] Comment on above: Performed By: #### C RP, RENP, CBC, MG #### [facility] [address] [place] [address] [employer]: Rodrick Jones MD WBC (Bld) [#/Vol] 10.1 10*3/uL Normal 3.5-11.3 [facility] Comment on above: Performed By: #### C RP, RENP, CBC, MG #### [facility] [address] [place] [address] [id number] [employer]: Rodrick Jones MD Hematocrit (Bld) [Volume fraction] 35.9 % Low 40.7 - 50.3 % [facility] Hemoglobin (Bld) [Mass/Vol] 11.9 g/dL Low 13.0 - 17.0 g/dL [facility] Interpretation and review of laboratory results Abnormal [facility] MCH (RBC) [Entitic mass] 31.6 pg 25.2 - 33.5 pg [facility] MCHC (RBC) [Mass/Vol] 33.1 g/dL 28.4 - 34.8 g/dL [facility] MCV (RBC) [Entitic vol] 95.2 fL 82.6 - 102.9 fL [facility] NRBC Automated 0.0 0.0 per 100 WBC [facility] Platelet distribution width (Bld) [Ratio] 14.0 % 11.8 - 14.4 % [facility] Platelet mean volume (Bld) [Entitic vol] 10.4 fL 8.1 - 13.5 fL [facility] Platelets (Bld) [#/Vol] 223 10*3/uL [facility] RBC (Bld) [#/Vol] 3.77 10*6/uL Low 4.21 - 5.7 7 m/uL [facility] WBC (Bld) [#/Vol] 10.1 10*3/uL [facility] WO PORT REPLACEMENTon 06-24-2022 [facility] RIS CONSOLIDATED [facility] RIS CONSOLIDATED [facility] Work Phone: Radiology Study observation (narrative) [facility] Work Phone: IR NON TUNNELED CATH WO PORT REPLACEMENTOrdered By: Jessica Bolivar on 06-24-2022 [facility] Work Phone: Immunofixation urine random profileon 06-24-2022 Protein (U) [Mass/Vol] 187 mg/dL [facility] Urine IFX Interp IMMUNOFIXATION IS NEGATIVE FOR MONOCLONAL IMMUNOGLOBULIN. [facility] Urine IFX Specimen .Random Urine [facility] Immunofixation,Urineon 06-24 Ur. IFX-Interpret IMMUNOFIXATION IS NEGATIVE FOR MONOCLONAL IMMUNOGLOBULIN. Normal [facility] Comment on above: Performed By: #### C RP, RENP, CBC, MG #### [facility] [address] [place], [place] [id number] [employer]: Rodrick Jones MD Magnesiumon 06-24-2022 Magnesium [Mass/Vol] 1.8 mg/dL Normal 1.6-2.6 [facility] Comment on above: Performed By: #### C RP, RENP, CBC, MG #### [facility] [address] [place], [place] [id number] [employer]: Rodrick Jones MD Magnesium [Mass/Vol] 1.8 mg/dL 1.6 - 2 .6 mg/dL [facility] POC Glucose Fingerstickon Glucose [Mass/Vol] 179 mg/dL High 75 - 110 mg/dL [facility] Interpretation and review of laboratory results Abnormal [facility] Glucose [Mass/Vol] 179 mg/dL High 75 - 110 mg/dL [facility] Interpretation and review of laboratory results Abnormal [facility] Glucose [Mass/Vol] 173 mg/dL High 75 - 110 mg/dL [facility] Interpretation and review of laboratory results Abnormal [facility] Glucose [Mass/Vol] 227 mg/dL High 75 - 110 mg/dL [facility] Interpretation and review of laboratory results Abnormal [facility] Glucose [Mass/Vol] 186 mg/dL High 75 - 110 mg/dL [facility] Interpretation and review of laboratory results Abnormal [facility] PROTEIN ELECTROPHORESIS, URI NEon 06-24-2022 P E Interpretation, U ELEVATED PROTEIN CONCENTRATION. MOST SERUM PROTEINS ARE DETECTED IN THIS URINE. USUALLY OBSERVED WITH MARKEDLY INCREASED NON-SELECTIVE GLOMERULAR PERMEABILITY (i.e. SEVERE GLOMERULAR DISEASE), CONTAMINATION OF [facility] Pathologist ELECTRONICALLY SIGNED. KUSUM VILLAFANA M.D. [facility] Protein (U) [Mass/Vol] 187 mg/dL [facility] Specimen Type .Random Urine [facility] Prot. Electrophoresis, Uron 06-24-2022 Pathologist Review: ELECTRONICALLY SIGNED. KUSUM VILLAFANA M.D. Normal [facility] Comment on above: Performed By: #### I FX, URI, C4, PE, FKLLC, C3, PTHNCA #### [address] [id number] [employer]: Rodrick Jones MD Ur.-Prot.Elect-Inter ELEVATED PROTEIN CONCENTRATION. MOST SERUM PROTEINS ARE DETECTED IN THIS URINE. Normal [facility] Comment on above: Result Comment: USUA LLY OBSERVED WITH MARKEDLY INCREASED NON-SELECTIVE GLOMERULAR PERMEABILITY (i.e. SEVERE GLOMERULAR DISEASE), CONTAMINATION OF URINE WITH BLOOD, OR A COMBINATION OF THESE. A DECREASE IN TUBULAR FUNCTION CANNOT BE RULED OUT. IMMUNOFIXATION IS NEGATIVE FOR MONOCLONAL IMMUNOGLOBULIN. SPECIMEN IS BLOODY. Performed By: #### I FX, URI, C4, PE, FKLLC, C3, PTHNCA #### [address] [id number] [employer]: Rodrick Jones MD Basic Metab w/rfx MGon 06-23 Creatinine [Mass/Vol] 5.25 mg/dL Critically high 0.70-1.20 [facility] Comment on above: Result Comment: Prev ious Alert Value Reported Performed By: #### B MP, CBC #### [address] [phone] [employer]: Rodrick Jones MD GFR/1.73 sq M.predicted among non-blacks MDRD (S/P/Bld) [Vol rate/Area] 12 mL/min/{1.73_m2} Low >60 [facility] Comment on above: Result Comment: These results are not intended for use in patients <18 years of age. eGFR results are calculated without a race factor using the 2020 CKD-EPI equation. Careful clinical correlation is recommended, particularly when comparing to results calculated using previous equations. The CKD-EPI equation is less accurate in patients with extremes of muscle mass, extra-renal metabolism of creatine, excessive creatine ingestion, or following therapy that affects renal tubular secretion. Performed By: #### B MP, CBC #### [facility] [address] [place] [id number] [employer]: Rodrick Jones MD Anion gap [Moles/Vol] 16 mmol/L Normal 9-17 [facility] Comment on above: Performed By: #### B MP, CBC #### [facility] [address] [place] [phone] [employer]: Rodrick Jones MD Calcium [Mass/Vol] 8.8 mg/dL Normal 8.6-10.4 [facility] Comment on above: Performed By: #### B MP, CBC #### [facility] [address] [place] [phone] [employer]: Rodrick Jones MD Chloride [Moles/Vol] 100 mmol/L Normal 98-107 [facility] Comment on above: Performed By: #### B MP, CBC #### [facility] [address] [place] [phone] [employer]: Rodrick Jones MD CO2 [Moles/Vol] 20 mmol/L Normal 20-31 [facility] Comment on above: Performed By: #### B MP, CBC #### [facility] [address] [place] [phone] [employer]: Rodrick Jones MD Glucose [Mass/Vol] 249 mg/dL High 70-99 [facility] Comment on above: Performed By: #### B MP, CBC #### [facility] [address] [place] [phone] [employer]: Rodrick Jones MD Potassium [Moles/Vol] 4.5 mmol/L Normal 3.7-5.3 [facility] Comment on above: Performed By: #### B MP, CBC #### [facility] [address] [place] [phone] [employer]: Rodrick Jones MD Sodium [Moles/Vol] 136 mmol/L Normal 135-144 [facility] Comment on above: Performed By: #### B MP, CBC #### [facility] [address] [place], [place] [phone] [employer]: Rodrick Jones MD Urea nitrogen [Mass/Vol] 53 mg/dL High 8-23 [facility] Comment on above: Performed By: #### B MP, CBC #### [facility] [address] [place], [place] [phone] [employer]: Rodrick Jones MD Basic Metabolic Panel w/ Ref artis to MGon 06-23-2022 Anion gap [Moles/Vol] 16 mmol/L 9 - 17 mmol/L [facility] Calcium [Mass/Vol] 8.8 mg/dL 8.6 - 10. 4 mg/dL [facility] Chloride [Moles/Vol] 100 mmol/L 98 - 10 7 mmol/L [facility] CO2 [Moles/Vol] 20 mmol/L 20 - 31 mmol/L [facility] Creatinine [Mass/Vol] 5.25 mg/dL Critically high 0.7 0 - 1.20 mg/dL [facility] GFR/1.73 sq M.predicted MDRD (S/P/Bld) [Vol rate/Area] 12 mL/min/{1.73_m2} Low - PINF [facility] Glucose [Mass/Vol] 249 mg/dL High 70 - 99 mg/dL [facility] Interpretation and review of laboratory results Abnormal [facility] Potassium [Moles/Vol] 4.5 mmol/L 3.7 - 5.3 mmol/L [facility] Sodium [Moles/Vol] 136 mmol/L 135 - 144 mmol/L [facility] Urea nitrogen [Mass/Vol] 53 mg/dL High 8 - 23 mg/dL [facility] C-Reactive Proteinon 023 CRP [Mass/Vol] 111.5 mg/L High 0.0-5.0 [facility] Comment on above: Performed By: #### B MP, CBC #### [address] [address] [employer]: Rodrick Jones MD CRP High sensitivity method [Mass/Vol] 111.5 mg/L High 0.0 - 5.0 mg/L [facility] Interpretation and review of laboratory results Abnormal [facility] CBCon 06-23-2022 Erythrocyte distribution width (RBC) [Ratio] 14.2 % Normal 11.8-14.4 [facility] Comment on above: Performed By: #### B MP, CBC #### [address] [address] [employer]: Rodrick Jones MD Hematocrit (Bld) [Volume fraction] 36.4 % Low 40.7-50.3 [facility] Comment on above: Performed By: #### B MP, CBC #### [address] [address] [employer]: Rodrick Jones MD Hemoglobin (Bld) [Mass/Vol] 11.7 g/dL Low 13.0-17.0 [facility] Comment on above: Performed By: #### B MP, CBC #### [address] [address] [employer]: Rodrick Jones MD MCH (RBC) [Entitic mass] 30.5 pg Normal 25.2-33.5 [facility] Comment on above: Performed By: #### B MP, CBC #### [address] [address] [employer]: Rodrick Jones MD MCHC (RBC) [Mass/Vol] 32.1 g/dL Normal 28.4-34.8 [facility] Comment on above: Performed By: #### B MP, CBC #### [address] [address] [employer]: Rodrick Jones MD MCV (RBC) [Entitic vol] 95.0 fL Normal 82.6-102.9 [facility] Comment on above: Performed By: #### B MP, CBC #### [address] [address] [employer]: Rodrick Jones MD NRBC Automated 0.0 per 100 WBC Normal 0.0 [facility] Comment on above: Performed By: #### B MP, CBC #### [address] [address] [employer]: Rodrick Jones MD Platelet mean volume (Bld) [Entitic vol] 11.1 fL Normal 8.1-13.5 [facility] Comment on above: Performed By: #### B MP, CBC #### [address] [address] [employer]: Rodrick Jones MD Platelets (Bld) [#/Vol] 216 10*3/uL Normal 138-453 [facility] Comment on above: Performed By: #### B MP, CBC #### [address] [address] [employer]: Rodrick Jones MD RBC (Bld) [#/Vol] 3.83 10*6/uL Low 4.21-5.77 [facility] Comment on above: Performed By: #### B MP, CBC #### [address] [address] [employer]: Rodrick Jones MD WBC (Bld) [#/Vol] 9.7 10*3/uL Normal 3.5-11.3 [facility] Comment on above: Performed By: #### B MP, CBC #### [address] [address] [employer]: Rodrick Jones MD Hematocrit (Bld) [Volume fraction] 36.4 % Low 40.7 - 50.3 % [facility] Hemoglobin (Bld) [Mass/Vol] 11.7 g/dL Low 13.0 - 17.0 g/dL [facility] Interpretation and review of laboratory results Abnormal [facility] MCH (RBC) [Entitic mass] 30.5 pg 25.2 - 33.5 pg [facility] MCHC (RBC) [Mass/Vol] 32.1 g/dL 28.4 - 34.8 g/dL [facility] MCV (RBC) [Entitic vol] 95.0 fL 82.6 - 102.9 fL [facility] NRBC Automated 0.0 0.0 per 100 WBC [facility] Platelet distribution width (Bld) [Ratio] 14.2 % 11.8 - 14.4 % [facility] Platelet mean volume (Bld) [Entitic vol] 11.1 fL 8.1 - 13.5 fL [facility] Platelets (Bld) [#/Vol] 216 10*3/uL [facility] RBC (Bld) [#/Vol] 3.83 10*6/uL Low 4.21 - 5.7 7 m/uL [facility] WBC (Bld) [#/Vol] 9.7 10*3/uL [facility] CT ABDOMEN PELVIS WO CONTRAS Ton 06-23-2022 CT ABDOMEN PELVIS WO CONTRAST EXAMINATION: CT OF THE ABDOMEN AND PELVIS WITHOUT CONTRAST 06/20/2022 4:20 am TECHNIQUE: CT of the abdomen and pelvis was performed without the administration of intravenous contrast. Multiplanar reformatted images are provided for review. Automated exposure control, iterative reconstruction, and/or weight based adjustment of the mA/kV was utilized to reduce the radiation dose to as low as reasonably achievable. COMPARISON: None. HISTORY: ORDERING SYSTEM PROVIDED HISTORY: worsening flank pain, hx of left sided obstructive nephrolithiasis with stent placement TECHNOLOGIST PROVIDED HISTORY: worsening flank pain, hx of left sided obstructive nephrolithiasis with stent placement Decision Support Exception - unselect if not a suspected or confirmed emergency medical condition->Emergency Medical Condition (MA) Reason for Exam: Fall; Fever; Flank Pain FINDINGS: Lower Chest: Calcified granulomas bilaterally. Lung bases otherwise grossly clear. Organs: Status post cholecystectomy. The unenhanced liver, spleen, pancreas and adrenal glands are without focal abnormality. Nonobstructing right renal calculi the largest measuring up to 11 mm. There is moderate to severe atrophy of the right kidney. There is a left ureteral stent in place. There is a 3 mm distal left ureteral calculus. There is also a 2 mm nonobstructing left renal calculus. There is mild left periureteral and perinephric stranding. GI/Bowel: No dilated loops of bowel or bowel wall thickening. Scattered colonic diverticula without acute diverticulitis. Moderate amount of stool in the colon. No free air. The appendix is normal. Pelvis: Gas is noted within the bladder. There is multiple foci of gas along the wall of the bladder as well suspicious for emphysematous cystitis. Small fat containing right inguinal hernia. No pathologically enlarged adenopathy or free fluid. Peritoneum/Retroperi toneum: The aorta is normal caliber with mild atherosclerosis. Subcentimeter left periaortic lymph nodes, nonspecific but likely reactive. No other pathologically enlarged adenopathy. No ascites or drainable fluid collection. Bones/Soft Tissues: Remote right rib fractures. No acute findings in the bones or soft tissues. IMPRESSION: 1. Left ureteral stent in place with a 3 mm distal left ureteral calculus. No significant left hydronephrosis however there is perinephric and periureteral stranding suggestive of superimposed infection/inflammati on. 2. 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 3. Nonobstructing bilateral renal calculi. Interpreted by: Radha Caceres MD Signed by: Radha Caceres MD 06/23/22 Final result Normal [facility] CT ABDOMEN PELVIS WO CONTRAS T Additional Contrast? Noneon 06-23-2022 [facility] RIS CONSOLIDATED [facility] RIS CONSOLIDATED [facility] Work Phone: [email or web address] Phone: CT HEAD WO CONTRASTon 2022 CT HEAD WO CONTRAST EXAMINATION: CT OF THE HEAD WITHOUT CONTRAST 06/20/2022 4:20 am TECHNIQUE: CT of the head was performed without the administration of intravenous contrast. Automated exposure control, iterative reconstruction, and/or weight based adjustment of the mA/kV was utilized to reduce the radiation dose to as low as reasonably achievable. COMPARISON: MRI 06/02/2022. HISTORY: ORDERING SYSTEM PROVIDED HISTORY: Fall, head injury TECHNOLOGIST PROVIDED HISTORY: Fall, head injury Decision Support Exception - unselect if not a suspected or confirmed emergency medical condition->Emergency Medical Condition (MA) Reason for Exam: Fall; Fever; Flank Pain FINDINGS: BRAIN/VENTRICLES: There is no acute intracranial hemorrhage, mass effect or midline shift. No abnormal extra-axial fluid collection. The browne-white differentiation is maintained without evidence of an acute infarct. There is no evidence of hydrocephalus. Mild patchy areas of low-attenuation in the periventricular white matter likely related to chronic small vessel ischemic changes. ORBITS: The visualized portion of the orbits demonstrate no acute abnormality. SINUSES: The visualized paranasal sinuses and mastoid air cells demonstrate no acute abnormality. SOFT TISSUES/SKULL: No acute abnormality of the visualized skull or soft tissues. IMPRESSION: No acute intracranial abnormality. Interpreted by: Radha Caceres MD Signed by: Radha Caceres MD 06/23/22 Final result Normal [facility] MHPN RIS CONSOLIDATED [facility]PN RIS CONSOLIDATED [employer] Phone: [employer] Phone: EKG 12 Leadon 06-23-2022 Atrial Rate 85 BPM [employer] Phone: P [place] 15 degrees [employer] Phone: P-R Interval 190 ms [employer] Phone: Q-T Interval 382 ms [employer] Phone: QRS Duration 106 ms [employer] Phone: QTc Calculation (Bazett) 454 ms [employer] Phone: R [place] -18 degrees [employer] Phone: T [place] -11 degrees [employer] Work Phone: Ventricular Rate 85 BPM [employer] Work Phone: [facility] STV MUSE [facility] Work Phone: [employer] Work Phone: [facility] STV MUSE [facility] Work Phone: EKG 12 LeadOrdered By: Karely Ewing on 06-23-2022 Atrial Rate 89 BPM [employer] Work Phone: P [place] 49 degrees [employer] Work Phone: P-R Interval 178 ms [employer] Work Phone: Q-T Interval 380 ms [employer] Work Phone: QRS Duration 96 ms [employer] Work Phone: QTc Calculation (Bazett) 462 ms [employer] Work Phone: R [place] -12 degrees [employer] Work Phone: T [place] -6 degrees [employer] Work Phone: Ventricular Rate 89 BPM [employer] Work Phone: [facility] Work Phone: Electrolyte Panelon 06-24-19 Anion gap [Moles/Vol] 14 mmol/L 9 - 17 mmol/L [facility] Chloride [Moles/Vol] 99 mmol/L 98 - 10 7 mmol/L [facility] CO2 [Moles/Vol] 22 mmol/L 20 - 31 mmol/L [facility] Potassium [Moles/Vol] 4.2 mmol/L 3.7 - 5.3 mmol/L [facility] Sodium [Moles/Vol] 135 mmol/L 135 - 144 mmol/L [place] Electroly[employer] 06-23-2022 Anion gap [Moles/Vol] 14 mmol/L Normal 9-17 [facility] Comment on above: Performed By: #### I FX, URI, C4, PE, FKLLC, C3, PTHNCA #### [address] [address] [employer] [place]: Rodrick Jones MD Chloride [Moles/Vol] 99 mmol/L Normal 98-107 [facility] Comment on above: Performed By: #### I FX, URI, C4, PE, FKLLC, C3, PTHNCA #### [address] [address] [employer]: Rodrick Jones MD CO2 [Moles/Vol] 22 mmol/L Normal 20-31 [facility] Comment on above: Performed By: #### I FX, URI, C4, PE, FKLLC, C3, PTHNCA #### [address] [address] [employer]: Rodrick Jones MD Potassium [Moles/Vol] 4.2 mmol/L Normal 3.7-5.3 [facility] Comment on above: Performed By: #### I FX, URI, C4, PE, FKLLC, C3, PTHNCA #### [address] [address] [employer]: Rodrick Jones MD Sodium [Moles/Vol] 135 mmol/L Normal 135-144 [facility] Comment on above: Performed By: #### I FX, URI, C4, PE, FKLLC, C3, PTHNCA #### [address] [address] [employer]: Rodrick Jones MD Immunofixation,Urineon 06-23 Protein (U) [Mass/Vol] 187 mg/dL Normal [facility] Comment on above: Performed By: #### C RP, RENP, CBC, MG #### [facility] [address] [place], [place] [phone] [employer]: Rodrick Jones MD Type of Specimen .Random Urine Normal [facility] Comment on above: Performed By: #### C RP, RENP, CBC, MG #### [facility] [address] [place], [place] [phone] [employer]: Rodrick Jones MD Magnesiumon 06-23-2022 Magnesium [Mass/Vol] 1.8 mg/dL Normal 1.6-2.6 [facility] Comment on above: Performed By: #### B MP, CBC #### [facility] [address] [place], [place] [phone] [employer]: Rodrick Jones MD Magnesium [Mass/Vol] 1.8 mg/dL 1.6 - 2 .6 mg/dL [facility] [employer] No Panel Informationon 06-23 [facility] [employer] [facility] POC Glucose Fingerstickon Glucose [Mass/Vol] 238 mg/dL High 75 - 110 mg/dL [facility] Interpretation and review of laboratory results Abnormal [facility] Glucose [Mass/Vol] 242 mg/dL High 75 - 110 mg/dL [facility] Interpretation and review of laboratory results Abnormal [facility] Glucose [Mass/Vol] 237 mg/dL High 75 - 110 mg/dL [facility] Interpretation and review of laboratory results Abnormal [facility] Glucose [Mass/Vol] 240 mg/dL High 75 - 110 mg/dL [facility] Interpretation and review of laboratory results Abnormal [facility] Glucose [Mass/Vol] 239 mg/dL High 75 - 110 mg/dL [facility] Interpretation and review of laboratory results Abnormal [facility] Basic Metabolic Panelon 06-09 Anion gap [Moles/Vol] 13 mmol/L 9 - 17 mmol/L [facility] Calcium [Mass/Vol] 8.5 mg/dL Low 8.6 - 10. 4 mg/dL [facility] Chloride [Moles/Vol] 99 mmol/L 98 - 10 7 mmol/L [facility] CO2 [Moles/Vol] 21 mmol/L 20 - 31 mmol/L [facility] Creatinine [Mass/Vol] 5.19 mg/dL Critically high 0.7 0 - 1.20 mg/dL [facility] GFR/1.73 sq M.predicted MDRD (S/P/Bld) [Vol rate/Area] 12 mL/min/{1.73_m2} Low - PINF [facility] Glucose [Mass/Vol] 280 mg/dL High 70 - 99 mg/dL [facility] Interpretation and review of laboratory results Abnormal [facility] Potassium [Moles/Vol] 4.5 mmol/L 3.7 - 5.3 mmol/L [facility] Sodium [Moles/Vol] 133 mmol/L Low 135 - 144 mmol/L [facility] Urea nitrogen [Mass/Vol] 53 mg/dL High 8 - 23 mg/dL [facility] Anion gap [Moles/Vol] 15 mmol/L 9 - 17 mmol/L [facility] Calcium [Mass/Vol] 8.5 mg/dL Low 8.6 - 10. 4 mg/dL [facility] Chloride [Moles/Vol] 98 mmol/L 98 - 10 7 mmol/L [facility] CO2 [Moles/Vol] 20 mmol/L 20 - 31 mmol/L [facility] Creatinine [Mass/Vol] 5.19 mg/dL Critically high 0.7 0 - 1.20 mg/dL [facility] GFR/1.73 sq M.predicted MDRD (S/P/Bld) [Vol rate/Area] 12 mL/min/{1.73_m2} Low - PINF [facility] Glucose [Mass/Vol] 284 mg/dL High 70 - 99 mg/dL [facility] Interpretation and review of laboratory results Abnormal [facility] Potassium [Moles/Vol] 4.3 mmol/L 3.7 - 5.3 mmol/L [facility] Sodium [Moles/Vol] 133 mmol/L Low 135 - 144 mmol/L [facility] Urea nitrogen [Mass/Vol] 53 mg/dL High 8 - 23 mg/dL [facility] Basic Metabolic Profon 06-22 Creatinine [Mass/Vol] 5.19 mg/dL Critically high 0.70-1.20 [facility] Comment on above: Result Comment: Prev ious Alert Value Reported Performed By: #### B CECY, CBC #### [facility] [address] [place] [address] [phone] [employer]: Rodrick Jones MD GFR/1.73 sq M.predicted among non-blacks MDRD (S/P/Bld) [Vol rate/Area] 12 mL/min/{1.73_m2} Low >60 [facility] Comment on above: Result Comment: These results are not intended for use in patients <18 years of age. eGFR results are calculated without a race factor using the 2020 CKD-EPI equation. Careful clinical correlation is recommended, particularly when comparing to results calculated using previous equations. The CKD-EPI equation is less accurate in patients with extremes of muscle mass, extra-renal metabolism of creatine, excessive creatine ingestion, or following therapy that affects renal tubular secretion. Performed By: #### B CECY, CBC #### [facility] [address] [place] [address] [phone] [employer]: Rodrick Jones MD Anion gap [Moles/Vol] 13 mmol/L Normal 9-17 [facility] Comment on above: Performed By: #### B CECY, CBC #### [facility] [address] [place] [address] [phone] [employer]: Rodrick Jones MD Calcium [Mass/Vol] 8.5 mg/dL Low 8.6-10.4 [facility] Comment on above: Performed By: #### B MP, CBC #### [facility] [address] [place] [address] [phone] [employer]: Rodrick Jones MD Chloride [Moles/Vol] 99 mmol/L Normal 98-107 [facility] [facility] Comment on above: Performed By: #### B MP, CBC #### [facility] [address] [place] [address] [place]: Rodrick Jones MD CO2 [Moles/Vol] 21 mmol/L Normal 20-31 [facility] Comment on above: Performed By: #### B MP, CBC #### [facility] [address] [place] [address] [place]: Rodrick Jones MD Glucose [Mass/Vol] 280 mg/dL High 70-99 [facility] Comment on above: Performed By: #### B CECY, CBC #### [address] [address] [place]: Rodrick Jones MD Potassium [Moles/Vol] 4.5 mmol/L Normal 3.7-5.3 [facility] Comment on above: Performed By: #### B CECY, CBC #### [address] [address] [place]: Rodrick Jones MD Sodium [Moles/Vol] 133 mmol/L Low 135-144 [facility] Comment on above: Performed By: #### B CECY, CBC #### [facility] [address] [place] [address] [place]: Rodrick Jones MD Urea nitrogen [Mass/Vol] 53 mg/dL High 8-23 [facility] Comment on above: Performed By: #### B MP, CBC #### [facility] [address] [place] [address] [employer] [place]: Rodrick Jones MD Creatinine [Mass/Vol] 5.19 mg/dL Critically high 0.70-1.20 [facility] Comment on above: Result Comment: Prev ious Alert Value Reported Performed By: #### C RP, RENP, CBC, MG #### [address] [phone] [employer] [place]: Rodrick Jones MD GFR/1.73 sq M.predicted among non-blacks MDRD (S/P/Bld) [Vol rate/Area] 12 mL/min/{1.73_m2} Low >60 [facility] Comment on above: Result Comment: These results are not intended for use in patients <18 years of age. eGFR results are calculated without a race factor using the 2020 CKD-EPI equation. Careful clinical correlation is recommended, particularly when comparing to results calculated using previous equations. The CKD-EPI equation is less accurate in patients with extremes of muscle mass, extra-renal metabolism of creatine, excessive creatine ingestion, or following therapy that affects renal tubular secretion. Performed By: #### C RP, RENP, CBC, MG #### [facility] [address] [place] [address] [employer] [place]: Rodrick Jones MD Anion gap [Moles/Vol] 15 mmol/L Normal 9-17 [facility] Comment on above: Performed By: #### C RP, RENP, CBC, MG #### [facility] [address] [place] [address] [place]: Rodrick Jones MD Calcium [Mass/Vol] 8.5 mg/dL Low 8.6-10.4 [facility] Comment on above: Performed By: #### C RP, RENP, CBC, MG #### [facility] [address] [place] [address] [employer] [place]: Rodrick Jones MD Chloride [Moles/Vol] 98 mmol/L Normal 98-107 [facility] Comment on above: Performed By: #### C RP, RENP, CBC, MG #### [facility] [address] [place] [address] [phone] [employer] [place]: Rodrick Jones MD CO2 [Moles/Vol] 20 mmol/L Normal 20-31 [facility] Comment on above: Performed By: #### C RP, RENP, CBC, MG #### [facility] [address] [place] [address] [employer] [place]: Rodrick Jones MD Glucose [Mass/Vol] 284 mg/dL High 70-99 [facility] Comment on above: Performed By: #### C RP, RENP, CBC, MG #### [facility] [address] [place] [address] [employer] [place]: Rodrick Jones MD Potassium [Moles/Vol] 4.3 mmol/L Normal 3.7-5.3 [facility] Comment on above: Performed By: #### C RP, RENP, CBC, MG #### [facility] [address] [place] [address] [employer] [place]: Rodrick Jones MD Sodium [Moles/Vol] 133 mmol/L Low 135-144 [facility] Comment on above: Performed By: #### C RP, RENP, CBC, MG #### [facility] [address] [place] [address] [employer]: Rodrick Jones MD Urea nitrogen [Mass/Vol] 53 mg/dL High 8-23 [facility] Comment on above: Performed By: #### C RP, RENP, CBC, MG #### [facility] [address] [place] [address] [employer] [place]: Rodrick Jones MD GFR/1.73 sq M.predicted among non-blacks MDRD (S/P/Bld) [Vol rate/Area] 12 mL/min/{1.73_m2} Low >60 [facility] Comment on above: Result Comment: These results are not intended for use in patients <18 years of age. eGFR results are calculated without a race factor using the 2020 CKD-EPI equation. Careful clinical correlation is recommended, particularly when comparing to results calculated using previous equations. The CKD-EPI equation is less accurate in patients with extremes of muscle mass, extra-renal metabolism of creatine, excessive creatine ingestion, or following therapy that affects renal tubular secretion. Performed By: #### C RP, RENP, CBC, MG #### [address] [address] [employer] [place]: Rodrick Jones MD CBCon 06-22-2022 Erythrocyte distribution width (RBC) [Ratio] 14.0 % Normal 11.8-14.4 [facility] Comment on above: Performed By: #### B MP, CBC #### [facility] [address] [place] [address] [employer] [place]: Rodrick Jones MD Hematocrit (Bld) [Volume fraction] 36.9 % Low 40.7-50.3 [facility] Comment on above: Performed By: #### B MP, CBC #### [facility] [address] [place] [address] [employer]: Rodrick Jones MD Hemoglobin (Bld) [Mass/Vol] 12.0 g/dL Low 13.0-17.0 [facility] Comment on above: Performed By: #### B MP, CBC #### [facility] [address] [place] [address] [employer]: Rodrick Jones MD MCH (RBC) [Entitic mass] 30.5 pg Normal 25.2-33.5 [facility] Comment on above: Performed By: #### B MP, CBC #### [facility] [address] [place] [address] [employer]: Rodrick Jones MD MCHC (RBC) [Mass/Vol] 32.5 g/dL Normal 28.4-34.8 [facility] Comment on above: Performed By: #### B MP, CBC #### [facility] [address] [place] [address] [employer]: Rodrick Jones MD MCV (RBC) [Entitic vol] 93.9 fL Normal 82.6-102.9 [facility] Comment on above: Performed By: #### B MP, CBC #### [address] [address] [employer] [place]: Rodrick Jones MD NRBC Automated 0.0 per 100 WBC Normal 0.0 [facility] Comment on above: Performed By: #### B MP, CBC #### [address] [address] [employer]: Rodrick Jones MD Platelet mean volume (Bld) [Entitic vol] 10.9 fL Normal 8.1-13.5 [facility] Comment on above: Performed By: #### B MP, CBC #### [address] [address] [employer]: Rodrick Jones MD Platelets (Bld) [#/Vol] 163 10*3/uL Normal 138-453 [facility] Comment on above: Performed By: #### B MP, CBC #### [address] [address] [employer]: Rodrick Jones MD RBC (Bld) [#/Vol] 3.93 10*6/uL Low 4.21-5.77 [facility] Comment on above: Performed By: #### B MP, CBC #### [address] [address] [employer]: Rodrick Jones MD WBC (Bld) [#/Vol] 8.7 10*3/uL Normal 3.5-11.3 [facility] Comment on above: Performed By: #### B MP, CBC #### [address] [address] [employer]: Rodrick Jones MD Hematocrit (Bld) [Volume fraction] 36.9 % Low 40.7 - 50.3 % [facility] Hemoglobin (Bld) [Mass/Vol] 12.0 g/dL Low 13.0 - 17.0 g/dL [facility] Interpretation and review of laboratory results Abnormal [facility] MCH (RBC) [Entitic mass] 30.5 pg 25.2 - 33.5 pg [facility] MCHC (RBC) [Mass/Vol] 32.5 g/dL 28.4 - 34.8 g/dL [facility] MCV (RBC) [Entitic vol] 93.9 fL 82.6 - 102.9 fL [facility] NRBC Automated 0.0 0.0 per 100 WBC [facility] Platelet distribution width (Bld) [Ratio] 14.0 % 11.8 - 14.4 % [facility] Platelet mean volume (Bld) [Entitic vol] 10.9 fL 8.1 - 13.5 fL [facility] Platelets (Bld) [#/Vol] 163 10*3/uL [facility] RBC (Bld) [#/Vol] 3.93 10*6/uL Low 4.21 - 5.7 7 m/uL [facility] WBC (Bld) [#/Vol] 8.7 10*3/uL [facility] Cult,Urineon 06-22-2022 Cult,Urine Specimen Description .CLEAN CATCH URINE Culture NO SIGNIFICANT GROWTH Identified as : VIRIDANS STREPTOCOCCUS GROUP <[id number] CFU/ML Report Status FINAL 06/22/2022 Normal [facility] Comment on above: Performed By: #### B MP, CBC #### [facility] [place], [place] [id number] [employer] [place]: Rodrick Jones MD Culture, Urineon 06-22-2022 Microorganism identified Cx Nom (Unsp spec) NO SIGNIFICANT GROWTH Identified as : VIRIDANS STREPTOCOCCUS GROUP <[id number] CFU/ML [facility] Specimen Description .CLEAN CATCH URINE [facility] Eosinophils, Urineon 023 Eosinophils, Urine NONE SEEN Normal NSN [facility] Comment on above: Performed By: #### I FX, URI, C4, PE, FKLLC, C3, PTHNCA #### [facility] [address] [place], [place] [phone] [employer] [place]: Rodrick Jones MD Magnesiumon 06-22-2022 Magnesium [Mass/Vol] 1.8 mg/dL Normal 1.6-2.6 [facility] Comment on above: Performed By: #### B MP, CBC #### [facility] [address] [place], [place] [phone] [employer] [place]: Rodrick Jones MD Magnesium [Mass/Vol] 1.8 mg/dL 1.6 - 2 .6 mg/dL [facility] Magnesium [Mass/Vol] 1.8 mg/dL Normal 1.6-2.6 [facility] Comment on above: Performed By: #### C RP, RENP, CBC, MG #### [facility] [address] [place], [place] [phone] [employer] [place]: Rodrick Jones MD Magnesium [Mass/Vol] 1.8 mg/dL 1.6 - 2 .6 mg/dL [facility] No Panel Informationon 06-22 [facility] POC Glucose Fingerstickon Glucose [Mass/Vol] 292 mg/dL High 75 - 110 mg/dL [facility] Interpretation and review of laboratory results Abnormal [facility] Glucose [Mass/Vol] 250 mg/dL High 75 - 110 mg/dL [facility] Interpretation and review of laboratory results Abnormal [facility] Glucose [Mass/Vol] 270 mg/dL High 75 - 110 mg/dL [facility] Interpretation and review of laboratory results Abnormal [facility] Glucose [Mass/Vol] 248 mg/dL High 75 - 110 mg/dL [facility] Interpretation and review of laboratory results Abnormal [facility] Phosphoruson 06-22-2022 Interpretation and review of laboratory results Abnormal [facility] Phosphate [Mass/Vol] 5.2 mg/dL High 2.5 - 4 .5 mg/dL [facility] Phosphorus, Inorg.on 023 Phosphorus, Inorg. 5.2 mg/dL High 2.5-4.5 [facility] Comment on above: Performed By: #### C RP, RENP, CBC, MG #### [facility] [address] [place], [place] [phone] [employer] [place]: Rodrick Jones MD Prot. Electrophoresis, Uron 06-22-2022 Total Protein Conc. 187 mg/dL Normal [facility] Comment on above: Performed By: #### I FX, URI, C4, PE, FKLLC, C3, PTHNCA #### [facility] [address] [place] [address] [employer] [place]: Rodrick Jones MD Basic Metabolic Panelon 06-09 Anion gap [Moles/Vol] 15 mmol/L 9 - 17 mmol/L [facility] Calcium [Mass/Vol] 8.2 mg/dL Low 8.6 - 10. 4 mg/dL [facility] Chloride [Moles/Vol] 96 mmol/L Low 98 - 10 7 mmol/L [facility] CO2 [Moles/Vol] 18 mmol/L Low 20 - 31 mmol/L [facility] GFR/1.73 sq M.predicted MDRD (S/P/Bld) [Vol rate/Area] 12 mL/min/{1.73_m2} Low - PINF [facility] Glucose [Mass/Vol] 348 mg/dL High 70 - 99 mg/dL [facility] Interpretation and review of laboratory results Abnormal [facility] Potassium [Moles/Vol] 4.4 mmol/L 3.7 - 5.3 mmol/L [facility] Sodium [Moles/Vol] 129 mmol/L Low 135 - 144 mmol/L [facility] Urea nitrogen [Mass/Vol] 50 mg/dL High 8 - 23 mg/dL [facility] Anion gap [Moles/Vol] 15 mmol/L 9 - 17 mmol/L [facility] Calcium [Mass/Vol] 8.1 mg/dL Low 8.6 - 10. 4 mg/dL [facility] Chloride [Moles/Vol] 94 mmol/L Low 98 - 10 7 mmol/L [facility] CO2 [Moles/Vol] 17 mmol/L Low 20 - 31 mmol/L [facility] Creatinine [Mass/Vol] 4.7 mg/dL High 0.70 - 1.20 mg/dL [facility] GFR/1.73 sq M.predicted MDRD (S/P/Bld) [Vol rate/Area] 13 mL/min/{1.73_m2} Low - PINF [facility] Glucose [Mass/Vol] 380 mg/dL High 70 - 99 mg/dL [facility] Potassium [Moles/Vol] 4.3 mmol/L 3.7 - 5.3 mmol/L [facility] Sodium [Moles/Vol] 126 mmol/L Low 135 - 144 mmol/L [facility] Urea nitrogen [Mass/Vol] 50 mg/dL High 8 - 23 mg/dL [facility] Basic Metabolic Profon 06-21 Anion gap [Moles/Vol] 15 mmol/L Normal 9-17 [facility] Comment on above: Performed By: #### C RP, RENP, CBC, MG #### [facility] [address] [place], [place] [id number] [employer]: Rodrick Jones MD Calcium [Mass/Vol] 8.2 mg/dL Low 8.6-10.4 [facility] Comment on above: Performed By: #### C RP, RENP, CBC, MG #### [email or web address] [address] [place], [place] [phone] [employer] [place]: Rodrick Jones MD Chloride [Moles/Vol] 96 mmol/L Low 98-107 [facility] Comment on above: Performed By: #### C RP, RENP, CBC, MG #### [facility] [place] [address] [employer] [place]: Rodrick Jones MD CO2 [Moles/Vol] 18 mmol/L Low 20-31 [facility] Comment on above: Performed By: #### C RP, RENP, CBC, MG #### [facility] [address] [place] [address] [employer]: Rodrick Jones MD Glucose [Mass/Vol] 348 mg/dL High 70-99 [facility] Comment on above: Performed By: #### C RP, RENP, CBC, MG #### [facility] [address] [place] [address] [employer]: Rodrick Jones MD Potassium [Moles/Vol] 4.4 mmol/L Normal 3.7-5.3 [facility] Comment on above: Performed By: #### C RP, RENP, CBC, MG #### [facility] [address] [place] [address] [employer] [place]: Rodrick Jones MD Sodium [Moles/Vol] 129 mmol/L Low 135-144 [facility] Comment on above: Performed By: #### C RP, RENP, CBC, MG #### [facility] [address] [place] [address] [employer]: Rodrick Jones MD Urea nitrogen [Mass/Vol] 50 mg/dL High 8-23 [facility] Comment on above: Performed By: #### C RP, RENP, CBC, MG #### [facility] [address] [place] [address] [employer]: Rodrick Jones MD Creatinine [Mass/Vol] 5.13 mg/dL Critically high 0.70-1.20 [facility] Comment on above: Performed By: #### C RP, RENP, CBC, MG #### [facility] [address] [place], [place] [address] [place] [address] [employer]: Rodrick Jones MD Anion gap [Moles/Vol] 15 mmol/L Normal 9-17 [facility] Comment on above: Performed By: #### I FX, URI, C4, PE, FKLLC, C3, PTHNCA #### [address] [address] [employer] [place]: Rodrick Jones MD Calcium [Mass/Vol] 8.1 mg/dL Low 8.6-10.4 [facility] Comment on above: Performed By: #### I FX, URI, C4, PE, FKLLC, C3, PTHNCA #### [address] [address] [employer]: Rodrick Jones MD Chloride [Moles/Vol] 94 mmol/L Low 98-107 [facility] Comment on above: Performed By: #### I FX, URI, C4, PE, FKLLC, C3, PTHNCA #### [address] [address] [employer]: Rodrick Jones MD CO2 [Moles/Vol] 17 mmol/L Low 20-31 [facility] Comment on above: Performed By: #### I FX, URI, C4, PE, FKLLC, C3, PTHNCA #### [address] [address] [employer] [place]: Rodrick Jones MD Creatinine [Mass/Vol] 4.70 mg/dL High 0.70-1.20 [facility] Comment on above: Performed By: #### I FX, URI, C4, PE, FKLLC, C3, PTHNCA #### [address] [address] [employer]: Rodrick Jones MD GFR/1.73 sq M.predicted among non-blacks MDRD (S/P/Bld) [Vol rate/Area] 13 mL/min/{1.73_m2} Low >60 [facility] Comment on above: Result Comment: These results are not intended for use in patients <18 years of age. eGFR results are calculated without a race factor using the 2020 CKD-EPI equation. Careful clinical correlation is recommended, particularly when comparing to results calculated using previous equations. The CKD-EPI equation is less accurate in patients with extremes of muscle mass, extra-renal metabolism of creatine, excessive creatine ingestion, or following therapy that affects renal tubular secretion. Performed By: #### I FX, URI, C4, PE, FKLLC, C3, PTHNCA #### [address] [address] [employer]: Rodrick Jones MD Glucose [Mass/Vol] 380 mg/dL High 70-99 [facility] Comment on above: Performed By: #### I FX, URI, C4, PE, FKLLC, C3, PTHNCA #### [address] [address] [employer] [place]: Rodrick Jones MD Potassium [Moles/Vol] 4.3 mmol/L Normal 3.7-5.3 [facility] Comment on above: Performed By: #### I FX, URI, C4, PE, FKLLC, C3, PTHNCA #### [address] [address] [employer]: Rodrick Jones MD Sodium [Moles/Vol] 126 mmol/L Low 135-144 [facility] Comment on above: Performed By: #### I FX, URI, C4, PE, FKLLC, C3, PTHNCA #### [address] [address] [employer]: Rodrick Jones MD Urea nitrogen [Mass/Vol] 50 mg/dL High 8-23 [facility] Comment on above: Performed By: #### I FX, URI, C4, PE, FKLLC, C3, PTHNCA #### [address] [phone] [employer]: Rodrick Jones MD C-Reactive Proteinon 023 CRP [Mass/Vol] 163.6 mg/L High 0.0-5.0 [facility] Comment on above: Performed By: #### C RP, RENP, CBC, MG #### [facility] [address] [place] [address] [phone] [employer]: Rodrick Jones MD CRP High sensitivity method [Mass/Vol] 163.6 mg/L High 0.0 - 5.0 mg/L [facility] Interpretation and review of laboratory results Abnormal [facility] C3on 06-21-2022 C3 167 mg/dL Normal 90-180 [facility] Comment on above: Performed By: #### I FX, URI, C4, PE, FKLLC, C3, PTHNCA #### [address] [phone] [employer]: Rodrick Jones MD C3 Complementon 06-21-2022 Complement C3 167 mg/dL 90 - 180 mg/dL [facility] C4on 06-21-2022 C4 58 mg/dL High 10-40 [facility] Comment on above: Performed By: #### I FX, URI, C4, PE, FKLLC, C3, PTHNCA #### [facility] [address] [place] [address] [phone] [employer]: Rodrick Jones MD C4 Complementon 06-21-2022 Complement C4 58 mg/dL High 10 - 40 mg/dL [facility] CBCon 06-21-2022 Erythrocyte distribution width (RBC) [Ratio] 13.7 % Normal 11.8-14.4 [facility] Comment on above: Performed By: #### C RP, RENP, CBC, MG #### [address] [address] [employer]: Rodrick Jones MD Hematocrit (Bld) [Volume fraction] 43.7 % Normal 40.7-50.3 [facility] Comment on above: Performed By: #### C RP, RENP, CBC, MG #### [address] [address] [employer]: Rodrick Jones MD Hemoglobin (Bld) [Mass/Vol] 15.2 g/dL Normal 13.0-17.0 [facility] Comment on above: Performed By: #### C RP, RENP, CBC, MG #### [place] [address] [employer] [place]: Rodrick Jones MD MCH (RBC) [Entitic mass] 30.9 pg Normal 25.2-33.5 [facility] Comment on above: Performed By: #### C RP, RENP, CBC, MG #### [place] [address] [employer]: Rodrick Jones MD MCHC (RBC) [Mass/Vol] 34.8 g/dL Normal 28.4-34.8 [facility] Comment on above: Performed By: #### C RP, RENP, CBC, MG #### [place] [address] [employer]: Rodrick Jones MD MCV (RBC) [Entitic vol] 88.8 fL Normal 82.6-102.9 [facility] Comment on above: Performed By: #### C RP, RENP, CBC, MG #### [facility] [address] [place] [address] [employer]: Rodrick Jones MD NRBC Automated 0.0 per 100 WBC Normal 0.0 [facility] Comment on above: Performed By: #### C RP, RENP, CBC, MG #### [place] [id number] [place] [address] [employer]: Rodrick Jones MD Platelet mean volume (Bld) [Entitic vol] 10.4 fL Normal 8.1-13.5 [facility] Comment on above: Performed By: #### C RP, RENP, CBC, MG #### [facility] [address] [place] [address] [employer]: Rodrick Jones MD Platelets (Bld) [#/Vol] 147 10*3/uL Normal 138-453 [facility] Comment on above: Performed By: #### C RP, RENP, CBC, MG #### [address] [address] [employer]: Rodrick Jones MD RBC (Bld) [#/Vol] 4.92 10*6/uL Normal 4.21-5.77 [facility] Comment on above: Performed By: #### C RP, RENP, CBC, MG #### [address] [address] [employer]: Rodrick Jones MD WBC (Bld) [#/Vol] 8.0 10*3/uL Normal 3.5-11.3 [facility] Comment on above: Performed By: #### C RP, RENP, CBC, MG #### [facility] [address] [place] [address] [employer]: Rodrick Jones MD Hematocrit (Bld) [Volume fraction] 43.7 % 40.7 - 50.3 % [facility] Hemoglobin (Bld) [Mass/Vol] 15.2 g/dL 13.0 - 17.0 g/dL [facility] MCH (RBC) [Entitic mass] 30.9 pg 25.2 - 33.5 pg [facility] MCHC (RBC) [Mass/Vol] 34.8 g/dL 28.4 - 34.8 g/dL [facility] MCV (RBC) [Entitic vol] 88.8 fL 82.6 - 102.9 fL [facility] NRBC Automated 0.0 0.0 per 100 WBC [facility] Platelet distribution width (Bld) [Ratio] 13.7 % 11.8 - 14.4 % [facility] Platelet mean volume (Bld) [Entitic vol] 10.4 fL 8.1 - 13.5 fL [facility] Platelets (Bld) [#/Vol] 147 10*3/uL [facility] RBC (Bld) [#/Vol] 4.92 10*6/uL 4.21 - 5.7 7 m/uL [facility] WBC (Bld) [#/Vol] 8.0 10*3/uL [facility] CREATININE, RANDOM URINEon 0 06-21-2022 Creatinine, Ur 99.0 mg/dL 39.0 - 259.0 mg/dL [facility] Creatinine,Random Uron 06-21 Creatinine [Mass/Vol] 99.0 mg/dL Normal 39.0-259.0 [facility] Comment on above: Performed By: #### I FX, URI, C4, PE, FKLLC, C3, PTHNCA #### [facility] [address] [place] [address] [employer] [place]: Rodrick Jones MD EKG 12 LeadOrdered By: Unkno wn Result on 06-21-2022 Atrial Rate 91 BPM [facility] P [place] 59 degrees [facility] P-R Interval 186 ms [facility] Q-T Interval 348 ms [facility] QRS Duration 92 ms [facility] QTc Calculation (Bazett) 428 ms [facility] R [place] -22 degrees [facility] T [place] 8 degrees [facility] Ventricular Rate 91 BPM [facility] EKG 12 Leadon 06-21-[address] [facility] Work Phone: EOSINOPHILS, URINEon 023 Eosinophil, Ur NONE SEEN NONE SEEN [facility] Hepatitis Acute Ifeanyi 06-21 Hep A Ab,IgM Non-Reactive Normal [facility] Comment on above: Performed By: #### I FX, URI, C4, PE, FKLLC, C3, PTHNCA #### [facility] [address] [place] [address] [employer] [place]: Rodrick Jones MD Hep B Core Ab,IgM Non-Reactive Normal [facility] Comment on above: Performed By: #### I FX, URI, C4, PE, FKLLC, C3, PTHNCA #### [facility] [address] [place] [address] [employer] [place]: Rodrick Jones MD Hep B Surf Ag Non-Reactive Normal [facility] Comment on above: Performed By: #### I FX, URI, C4, PE, FKLLC, C3, PTHNCA #### [facility] [address] [place] [address] [employer]: Rodrick Jones MD Hep C Ab Non-Reactive Normal [facility] Comment on above: Result Comment: The hepatitis C procedure used in our laboratory is a Chemiluminescent test specific for three recombinant HCV antigens. A negative anti-HCV result indicates that the antibodies to hepatitis C virus are not present at this time. Individuals with reactive anti-HCV should be considered infected and infectious until proven otherwise. Confirmation of all equivocal or reactive results is recommended by ordering HCV RNA by PCR. Performed By: #### I FX, URI, C4, PE, FKLLC, C3, PTHNCA #### [address] [address] [place]: Rodrick Jones MD Hepatitis Panel, Acuteon HAV IgM Ql (S) Non-Reactive NONREACTIVE [facility] HBV core IgM Ql (S) Non-Reactive NONREACTIVE [facility] HBV surface Ag Ql (S) Non-Reactive NONREACTIVE [facility] HCV Ab Ql (S) Non-Reactive NONREACTIVE [facility] Magnesiumon 06-21-2022 Magnesium [Mass/Vol] 1.7 mg/dL Normal 1.6-2.6 [facility] Comment on above: Performed By: #### C RP, RENP, CBC, MG #### [email or web address] [address] [place] [address] [place]: Rodrick Jones MD Magnesium [Mass/Vol] 1.7 mg/dL 1.6 - 2 .6 mg/dL [facility] No Panel Informationon 06-21 [facility] Interpretation and review of laboratory results Abnormal [facility] OSMOLALITY, URINEon 06-22-19 23 Osmolality, Ur 361 [facility] Osmolality, Urineon 06-22-19 23 Osmolality - Urine 361 mOsm/kg Normal 80-1300 [facility] Comment on above: Performed By: #### I FX, URI, C4, PE, FKLLC, C3, PTHNCA #### [facility] [address] [place] [address] [place]: Rodrick Jones MD POC Glucose Fingerstickon Glucose [Mass/Vol] 326 mg/dL High 75 - 110 mg/dL [facility] Interpretation and review of laboratory results Abnormal [facility] Glucose [Mass/Vol] 330 mg/dL High 75 - 110 mg/dL [facility] Interpretation and review of laboratory results Abnormal [facility] Glucose [Mass/Vol] 273 mg/dL High 75 - 110 mg/dL [facility] Interpretation and review of laboratory results Abnormal [facility] Glucose [Mass/Vol] 248 mg/dL High 75 - 110 mg/dL [facility] Interpretation and review of laboratory results Abnormal [facility] POTASSIUM, URINE, RANDOMon 0 06-21-2022 Potassium, Ur 19.1 mmol/L [facility] Potassium,Random Uron 2022 Potassium [Moles/Vol] 19.1 mmol/L Normal [facility] Comment on above: Result Comment: No n ormal range established. Performed By: #### I FX, URI, C4, PE, FKLLC, C3, PTHNCA #### [facility] [address] [place] [address] [employer] [place]: Rodirck Jones MD Prot. Electrophoresis, Uron 06-21-2022 Type of Specimen .Random Urine Normal [facility] Comment on above: Performed By: #### I FX, URI, C4, PE, FKLLC, C3, PTHNCA #### [facility] [address] [place] [address] [employer]: Rodrick Jones MD Renal Function Panelon 06-21 Albumin [Mass/Vol] 3.0 g/dL Low 3.5-5.2 [facility] Comment on above: Performed By: #### C RP, RENP, CBC, MG #### [facility] [address] [place] [address] [employer]: Rodrick Jones MD Anion gap [Moles/Vol] 17 mmol/L Normal 9-17 [facility] Comment on above: Performed By: #### C RP, RENP, CBC, MG #### [facility] [address] [place] [address] [employer]: Rodrick Jones MD Calcium [Mass/Vol] 8.6 mg/dL Normal 8.6-10.4 [facility] Comment on above: Performed By: #### C RP, RENP, CBC, MG #### [facility] [address] [place] [address] [employer]: Rodrick Jones MD Chloride [Moles/Vol] 93 mmol/L Low 98-107 [facility] Comment on above: Performed By: #### C RP, RENP, CBC, MG #### [facility] [address] [place] [address] [employer]: Rodrick Jones MD CO2 [Moles/Vol] 16 mmol/L Low 20-31 [facility] Comment on above: Performed By: #### C RP, RENP, CBC, MG #### [facility] [address] [place] [address] [employer] [place]: Rodrick Jones MD Creatinine [Mass/Vol] 4.50 mg/dL High 0.70-1.20 [facility] Comment on above: Performed By: #### C RP, RENP, CBC, MG #### [facility] [address] [place] [address] [employer]: Rodrick Jones MD GFR/1.73 sq M.predicted among non-blacks MDRD (S/P/Bld) [Vol rate/Area] 14 mL/min/{1.73_m2} Low >60 [facility] Comment on above: Result Comment: These results are not intended for use in patients <18 years of age. eGFR results are calculated without a race factor using the 2020 CKD-EPI equation. Careful clinical correlation is recommended, particularly when comparing to results calculated using previous equations. The CKD-EPI equation is less accurate in patients with extremes of muscle mass, extra-renal metabolism of creatine, excessive creatine ingestion, or following therapy that affects renal tubular secretion. Performed By: #### C RP, RENP, CBC, MG #### [facility] [address] [place] [address] [employer]: Rodrick Jones MD Glucose [Mass/Vol] 283 mg/dL High 70-99 [facility] Comment on above: Performed By: #### C RP, RENP, CBC, MG #### [facility] [address] [place] [address] [employer]: Rodrick Jones MD Phosphorus, Inorg. 4.1 mg/dL Normal 2.5-4.5 [facility] Comment on above: Performed By: #### C RP, RENP, CBC, MG #### [facility] [place], [place] [phone] [employer]: Rodrick Jones MD Potassium [Moles/Vol] 5.1 mmol/L Normal 3.7-5.3 [facility] Comment on above: Performed By: #### C RP, RENP, CBC, MG #### [facility] [place], [place] [phone] [employer]: Rodrick Jones MD Sodium [Moles/Vol] 126 mmol/L Low 135-144 [facility] Comment on above: Performed By: #### C RP, RENP, CBC, MG #### [facility] [place], [place] [phone] [employer]: Rodrick Jones MD Urea nitrogen [Mass/Vol] 51 mg/dL High 8-23 [facility] Comment on above: Performed By: #### C RP, RENP, CBC, MG #### [facility] [place], [place] [phone] [employer]: Rodrick Jones MD Albumin [Mass/Vol] 3 g/dL Low 3.5 - 5.2 g/dL [facility] - [employer] Anion gap [Moles/Vol] 17 mmol/L 9 - 17 mmol/L [facility] Calcium [Mass/Vol] 8.6 mg/dL 8.6 - 10. 4 mg/dL [facility] Chloride [Moles/Vol] 93 mmol/L Low 98 - 10 7 mmol/L [facility] CAL - [employer] CO2 [Moles/Vol] 16 mmol/L Low 20 - 31 mmol/L [facility] - [employer] Creatinine [Mass/Vol] 4.5 mg/dL High 0.70 - 1.20 mg/dL [facility] GFR/1.73 sq M.predicted MDRD (S/P/Bld) [Vol rate/Area] 14 mL/min/{1.73_m2} Low - PINF [facility] Glucose [Mass/Vol] 283 mg/dL High 70 - 99 mg/dL [facility] Interpretation and review of laboratory results Abnormal [facility] Phosphate [Mass/Vol] 4.1 mg/dL 2.5 - 4 .5 mg/dL [facility] Potassium [Moles/Vol] 5.1 mmol/L 3.7 - 5.3 mmol/L [facility] Sodium [Moles/Vol] 126 mmol/L Low 135 - 144 mmol/L [facility] Urea nitrogen [Mass/Vol] 51 mg/dL High 8 - 23 mg/dL [facility] SODIUM, URINE, RANDOMon 06-09 Sodium (U) [Moles/Vol] 41 mmol/L [facility] Sodium, Random Uron 06-22-19 Sodium (U) [Moles/Vol] 41 mmol/L Normal [facility] Comment on above: Result Comment: No n ormal range established. Performed By: #### I FX, URI, C4, PE, FKLLC, C3, PTHNCA #### [place] [address] [employer]: Rodrick Jones MD UA w/Reflex Cultureon 2022 Bilirubin, SemiQt,Ur Negative Normal NEG [facility] Comment on above: Performed By: #### B MP, CBC #### [facility] [address] [place], [place] [phone] [employer]: Rodrick Jones MD Blood, Urine LARGE Abnormal NEG [facility] Comment on above: Performed By: #### B MP, CBC #### [facility] [address] [place], [place] [phone] [employer]: Rodrick Jones MD Clarity (U) Cloudy Abnormal CLEAR [facility] Comment on above: Performed By: #### B MP, CBC #### [facility] [address] [place] [address] [employer]: Rodrick Jones MD Color (U) [place] Abnormal YEL [facility] Comment on above: Result Comment: INTE RPRET WITH CAUTION DUE TO INTENSE COLOR OF URINE. Performed By: #### B MP, CBC #### [facility] [address] [place] [address] [employer]: Rodrick Jones MD Glucose Ql (U) Negative Normal NEG [facility] Comment on above: Performed By: #### B MP, CBC #### [address] [address] [employer]: Rodrick Jones MD Ketones Ql (U) Negative Normal NEG [facility] Comment on above: Performed By: #### B MP, CBC #### [address] [address] [employer]: Rodrick Jones MD Leukocyte esterase Test strip Ql (U) SMALL Abnormal NEG [facility] Comment on above: Performed By: #### B MP, CBC #### [address] [address] [employer]: Rodrick Jones MD Nitrite,Ur Negative Normal NEG [facility] Comment on above: Performed By: #### B MP, CBC #### [address] [address] [employer]: Rodrick Jones MD PH,Ur 5.5 Normal 5.0-8.0 [facility] Comment on above: Performed By: #### B MP, CBC #### [facility] [address] [place] [address] [employer]: Rodrick Joens MD Protein Ql (U) 4+ Abnormal NEG [facility] Comment on above: Performed By: #### B MP, CBC #### [facility] [address] [place] [address] [employer]: Rodrick Jones MD Spec. Grabill,Ur 1.010 Normal 1.005-1.030 [facility] Comment on above: Performed By: #### B MP, CBC #### [address] [address] [employer]: Rodrick Jones MD Urobilinogen,Ur Normal Normal NORM [facility] Comment on above: Performed By: #### B MP, CBC #### [address] [address] [employer]: Rodrick Jones MD Urinalysis,Microon 3 Bacteria FEW Abnormal NONE [facility] Comment on above: Performed By: #### B MP, CBC #### [address] [address] [employer]: Rodrick Jones MD Casts 0 TO 2 Normal 02 [facility] Comment on above: Result Comment: [employer] [place] Performed By: #### B MP, CBC #### [address] [address] [employer]: Rodrick Jones MD Epithelial cells LM Ql (Urine sed) 5 TO 10 Normal 0-5 [facility] Comment on above: Performed By: #### B MP, CBC #### [address] [address] [employer]: Rodrick Jones MD Urine RBC's TOO NUMEROUS TO COUNT Normal 0-2 [facility] Comment on above: Performed By: #### B MP, CBC #### [facility] [address] [place] [address] [employer]: Rodrick Jones MD Urine WBC's 5 TO 10 Normal 0-5 [facility] Comment on above: Performed By: #### B MP, CBC #### [facility] [address] [place], [place] [phone] [employer]: Rodrick Jones MD Basic Metabolic Panelon 06-09 Anion gap [Moles/Vol] 19 mmol/L High 9 - 17 mmol/L [facility] Calcium [Mass/Vol] 9.0 mg/dL 8.6 - 10. 4 mg/dL [facility] Chloride [Moles/Vol] 93 mmol/L Low 98 - 10 7 mmol/L [facility] CO2 [Moles/Vol] 15 mmol/L Low 20 - 31 mmol/L [facility] Creatinine [Mass/Vol] 3.65 mg/dL High 0.70 - 1.20 mg/dL [facility] GFR/1.73 sq M.predicted MDRD (S/P/Bld) [Vol rate/Area] 18 mL/min/{1.73_m2} Low - PINF [facility] Glucose [Mass/Vol] 152 mg/dL High 70 - 99 mg/dL [facility] Interpretation and review of laboratory results Abnormal [facility] Potassium [Moles/Vol] 4.3 mmol/L 3.7 - 5.3 mmol/L [facility] Sodium [Moles/Vol] 127 mmol/L Low 135 - 144 mmol/L [facility] Urea nitrogen [Mass/Vol] 49 mg/dL High 8 - 23 mg/dL [facility] Basic Metabolic Profon 06-20 Anion gap [Moles/Vol] 19 mmol/L High 9-17 [facility] Comment on above: Performed By: #### I FX, URI, C4, PE, FKLLC, C3, PTHNCA #### [facility] [place] [address] [employer]: Rodrick Jones MD Calcium [Mass/Vol] 9.0 mg/dL Normal 8.6-10.4 [facility] Comment on above: Performed By: #### I FX, URI, C4, PE, FKLLC, C3, PTHNCA #### [address] [address] [employer]: Rodrick Jones MD Chloride [Moles/Vol] 93 mmol/L Low 98-107 [facility] Comment on above: Performed By: #### I FX, URI, C4, PE, FKLLC, C3, PTHNCA #### [address] [address] [employer]: Rodrick Jones MD CO2 [Moles/Vol] 15 mmol/L Low 20-31 [facility] Comment on above: Performed By: #### I FX, URI, C4, PE, FKLLC, C3, PTHNCA #### [address] [address] [employer]: Rodrick Jones MD Creatinine [Mass/Vol] 3.65 mg/dL High 0.70-1.20 [facility] Comment on above: Performed By: #### I FX, URI, C4, PE, FKLLC, C3, PTHNCA #### [address] [address] [employer]: Rodrick Jones MD GFR/1.73 sq M.predicted among non-blacks MDRD (S/P/Bld) [Vol rate/Area] 18 mL/min/{1.73_m2} Low >60 [facility] Comment on above: Result Comment: These results are not intended for use in patients <18 years of age. eGFR results are calculated without a race factor using the 2020 CKD-EPI equation. Careful clinical correlation is recommended, particularly when comparing to results calculated using previous equations. The CKD-EPI equation is less accurate in patients with extremes of muscle mass, extra-renal metabolism of creatine, excessive creatine ingestion, or following therapy that affects renal tubular secretion. Performed By: #### I FX, URI, C4, PE, FKLLC, C3, PTHNCA #### [address] [address] [employer]: Rodrick Jones MD Glucose [Mass/Vol] 152 mg/dL High 70-99 [facility] Comment on above: Performed By: #### I FX, URI, C4, PE, FKLLC, C3, PTHNCA #### [facility] [address] [place] [address] [employer]: Rodrick Jones MD Potassium [Moles/Vol] 4.3 mmol/L Normal 3.7-5.3 [facility] Comment on above: Performed By: #### I FX, URI, C4, PE, FKLLC, C3, PTHNCA #### [facility] [address] [place] [address] [employer]: Rodrick Jones MD Sodium [Moles/Vol] 127 mmol/L Low 135-144 [facility] Comment on above: Performed By: #### I FX, URI, C4, PE, FKLLC, C3, PTHNCA #### [facility] [address] [place] [address] [employer]: Rodrick Jones MD Urea nitrogen [Mass/Vol] 49 mg/dL High 8-23 [facility] Comment on above: Performed By: #### I FX, URI, C4, PE, FKLLC, C3, PTHNCA #### [facility] [address] [place] [address] [employer]: Rodrick Jones MD CBC with Auto Differentialon 06-20-2022 Absolute Eos # 0.04 [facility] Absolute Immature Granulocyte 0.07 [facility] Absolute Lymph # 0.73 Low [facility] Absolute [place] # 1.00 [facility] Basophils (Bld) [#/Vol] 0.07 10*3/uL [facility] Basophils/100 WBC (Bld) 1 % 0 - 2 % [facility] Eosinophils/100 WBC (Bld) 0 % Low 1 - 4 % [facility] Hematocrit (Bld) [Volume fraction] 42.2 % 40.7 - 50.3 % [facility] Hemoglobin (Bld) [Mass/Vol] 13.7 g/dL 13.0 - 17.0 g/dL [facility] Immature granulocytes/100 WBC (Bld) 1 % High 0 [facility] Interpretation and review of laboratory results Abnormal [facility] Lymphocytes/100 WBC (Bld) 6 % Low 24 - 43 % [facility] MCH (RBC) [Entitic mass] 30.4 pg 25.2 - 33.5 pg [facility] MCHC (RBC) [Mass/Vol] 32.5 g/dL 28.4 - 34.8 g/dL [facility] MCV (RBC) [Entitic vol] 93.6 fL 82.6 - 102.9 fL [facility] Monocytes/100 WBC (Bld) 8 % 3 - 12 % [facility] NRBC Automated 0.0 0.0 per 100 WBC [facility] Platelet distribution width (Bld) [Ratio] 13.8 % 11.8 - 14.4 % [facility] Platelet mean volume (Bld) [Entitic vol] 11.1 fL 8.1 - 13.5 fL [facility] Platelets (Bld) [#/Vol] 199 10*3/uL [facility] RBC (Bld) [#/Vol] 4.51 10*6/uL 4.21 - 5.7 7 m/uL [facility] Seg Neutrophils 85 % High 36 - 65 % [facility] Segs Absolute 10.81 High [facility] WBC (Bld) [#/Vol] 12.7 10*3/uL High [facility] CBC with Diffon 06-20-2022 Abs. Basophil 0.07 k/uL Normal 0.00-0.20 [facility] Comment on above: Performed By: #### I FX, URI, C4, PE, FKLLC, C3, PTHNCA #### [facility] [address] [place] [address] [employer]: Rodrick Jones MD Abs.Imm.Granulocyte 0.07 k/uL Normal 0.00-0.30 [facility] Comment on above: Performed By: #### I FX, URI, C4, PE, FKLLC, C3, PTHNCA #### [address] [address] [employer]: Rodrick Jones MD Abs.Neutrophil (Seg) 10.81 k/uL High 1.50-8.10 [facility] Comment on above: Performed By: #### I FX, URI, C4, PE, FKLLC, C3, PTHNCA #### [place] [address] [employer]: Rodrick Jones MD Basophils/100 WBC (Bld) 1 % Normal 0-2 [facility] Comment on above: Performed By: #### I FX, URI, C4, PE, FKLLC, C3, PTHNCA #### [place] [address] [employer]: Rodrick Jones MD Eosinophils (Bld) [#/Vol] 0.04 10*3/uL Normal 0.00-0.44 [facility] Comment on above: Performed By: #### I FX, URI, C4, PE, FKLLC, C3, PTHNCA #### [place] [address] [employer]: Rodrick Jones MD Eosinophils/100 WBC (Bld) 0 % Low 1-4 [facility] Comment on above: Performed By: #### I FX, URI, C4, PE, FKLLC, C3, PTHNCA #### [address] [address] [employer]: Rodrick Jones MD Erythrocyte distribution width (RBC) [Ratio] 13.8 % Normal 11.8-14.4 [facility] Comment on above: Performed By: #### I FX, URI, C4, PE, FKLLC, C3, PTHNCA #### [place] [address] [employer]: Rodrick Jonse MD Hematocrit (Bld) [Volume fraction] 42.2 % Normal 40.7-50.3 [facility] Comment on above: Performed By: #### I FX, URI, C4, PE, FKLLC, C3, PTHNCA #### [place] [address] [employer]: Rodrick Jones MD Hemoglobin (Bld) [Mass/Vol] 13.7 g/dL Normal 13.0-17.0 [facility] Comment on above: Performed By: #### I FX, URI, C4, PE, FKLLC, C3, PTHNCA #### [place] [address] [employer]: Rodrick Jones MD Immature granulocytes/100 WBC (Bld) 1 % High 0 [facility] Comment on above: Performed By: #### I FX, URI, C4, PE, FKLLC, C3, PTHNCA #### [place] [address] [employer]: Rodrick Jones MD Lymphocytes (Bld) [#/Vol] 0.73 10*3/uL Low 1.10-3.70 [facility] Comment on above: Performed By: #### I FX, URI, C4, PE, FKLLC, C3, PTHNCA #### [place] [address] [employer]: Rodrick Jones MD Lymphocytes/100 WBC (Bld) 6 % Low 24-43 [facility] Comment on above: Performed By: #### I FX, URI, C4, PE, FKLLC, C3, PTHNCA #### [address] [address] [employer]: Rodrick Jones MD MCH (RBC) [Entitic mass] 30.4 pg Normal 25.2-33.5 [facility] Comment on above: Performed By: #### I FX, URI, C4, PE, FKLLC, C3, PTHNCA #### [place] [address] [employer]: Rodrick Jones MD MCHC (RBC) [Mass/Vol] 32.5 g/dL Normal 28.4-34.8 [facility] Comment on above: Performed By: #### I FX, URI, C4, PE, FKLLC, C3, PTHNCA #### [place] [address] [employer]: Rodrick Jones MD MCV (RBC) [Entitic vol] 93.6 fL Normal 82.6-102.9 [facility] Comment on above: Performed By: #### I FX, URI, C4, PE, FKLLC, C3, PTHNCA #### [place] [address] [employer]: Rodrick Jones MD Monocytes (Bld) [#/Vol] 1.00 10*3/uL Normal 0.10-1.20 [facility] Comment on above: Performed By: #### I FX, URI, C4, PE, FKLLC, C3, PTHNCA #### [place] [address] [employer]: Rodrick Jones MD Monocytes/100 WBC (Bld) 8 % Normal 3-12 [facility] Comment on above: Performed By: #### I FX, URI, C4, PE, FKLLC, C3, PTHNCA #### [address] [address] [employer]: Rodrick Jones MD Neutrophil (Seg) 85 % High 36-65 [facility] Comment on above: Performed By: #### I FX, URI, C4, PE, FKLLC, C3, PTHNCA #### [address] [address] [employer]: Rodrick Jones MD NRBC Automated 0.0 per 100 WBC Normal 0.0 [facility] Comment on above: Performed By: #### I FX, URI, C4, PE, FKLLC, C3, PTHNCA #### [address] [address] [employer]: Rodrick Jones MD Platelet mean volume (Bld) [Entitic vol] 11.1 fL Normal 8.1-13.5 [facility] Comment on above: Performed By: #### I FX, URI, C4, PE, FKLLC, C3, PTHNCA #### [address] [address] [employer]: Rodrick Jones MD Platelets (Bld) [#/Vol] 199 10*3/uL Normal 138-453 [facility] Comment on above: Performed By: #### I FX, URI, C4, PE, FKLLC, C3, PTHNCA #### [address] [address] [employer]: Rodrick Jones MD RBC (Bld) [#/Vol] 4.51 10*6/uL Normal 4.21-5.77 [facility] Comment on above: Performed By: #### I FX, URI, C4, PE, FKLLC, C3, PTHNCA #### [address] [address] [employer]: Rodrick Jones MD WBC (Bld) [#/Vol] 12.7 10*3/uL High 3.5-11.3 [facility] Comment on above: Performed By: #### I FX, URI, C4, PE, FKLLC, C3, PTHNCA #### [address] [address] [employer]: Rodrick Jones MD COVID-19, Rapidon 06-20-2022 SARS-CoV-2 (COVID-19) RdRp gene BENTLEY+probe Ql (Resp) Not detected Not Detected [facility] Specimen Description .NASOPHARYNGEAL SWAB [facility] Comp Metabolic Pr/rfx MGon 0 06-20-2022 Albumin [Mass/Vol] 3.5 g/dL Normal 3.5-5.2 [facility] Comment on above: Performed By: #### I FX, URI, C4, PE, FKLLC, C3, PTHNCA #### [address] [address] [employer]: Rodrick Jones MD Albumin/Glob Ratio 0.8 Low 1.0-2.5 [facility] Comment on above: Performed By: #### I FX, URI, C4, PE, FKLLC, C3, PTHNCA #### [facility] [address] [place] [address] [employer]: Rodrick Jones MD Alkaline Phos 93 U/L Normal 40-129 [facility] Comment on above: Performed By: #### I FX, URI, C4, PE, FKLLC, C3, PTHNCA #### [facility] [address] [place] [address] [employer]: Rodrick Jones MD ALT [Catalytic activity/Vol] 13 U/L Normal 5-41 [facility] Comment on above: Performed By: #### I FX, URI, C4, PE, FKLLC, C3, PTHNCA #### [facility] [address] [place] [address] [employer]: Rodrick Jones MD Anion gap [Moles/Vol] 17 mmol/L Normal 9-17 [facility] Comment on above: Performed By: #### I FX, URI, C4, PE, FKLLC, C3, PTHNCA #### [address] [address] [employer]: Rodrick Jones MD AST [Catalytic activity/Vol] 21 U/L Normal <40 [facility] Comment on above: Performed By: #### I FX, URI, C4, PE, FKLLC, C3, PTHNCA #### [address] [address] [place]: Rodrick Jones MD Bilirubin [Mass/Vol] 0.7 mg/dL Normal 0.3-1.2 [facility] Comment on above: Performed By: #### I FX, URI, C4, PE, FKLLC, C3, PTHNCA #### [address] [address] [place]: Rodrick Jones MD Calcium [Mass/Vol] 9.1 mg/dL Normal 8.6-10.4 [facility] Comment on above: Performed By: #### I FX, URI, C4, PE, FKLLC, C3, PTHNCA #### [address] [address] [place]: Rodrick Jones MD Chloride [Moles/Vol] 92 mmol/L Low 98-107 [facility] Comment on above: Performed By: #### I FX, URI, C4, PE, FKLLC, C3, PTHNCA #### [address] [address] [place]: Rodrick Jones MD CO2 [Moles/Vol] 19 mmol/L Low 20-31 [facility] Comment on above: Performed By: #### I FX, URI, C4, PE, FKLLC, C3, PTHNCA #### [address] [id number] [place] [employer]: Rodrick Jones MD Creatinine [Mass/Vol] 3.64 mg/dL High 0.70-1.20 [facility] Comment on above: Performed By: #### I FX, URI, C4, PE, FKLLC, C3, PTHNCA #### [address] [id number] [place]: Rodrick Jones MD GFR/1.73 sq M.predicted among non-blacks MDRD (S/P/Bld) [Vol rate/Area] 18 mL/min/{1.73_m2} Low >60 [facility] Comment on above: Result Comment: These results are not intended for use in patients <18 years of age. eGFR results are calculated without a race factor using the 2020 CKD-EPI equation. Careful clinical correlation is recommended, particularly when comparing to results calculated using previous equations. The CKD-EPI equation is less accurate in patients with extremes of muscle mass, extra-renal metabolism of creatine, excessive creatine ingestion, or following therapy that affects renal tubular secretion. Performed By: #### I FX, URI, C4, PE, FKLLC, C3, PTHNCA #### [address] [id number] [place] [place]: Rodrick Jones MD Glucose [Mass/Vol] 145 mg/dL High 70-99 [facility] Comment on above: Performed By: #### I FX, URI, C4, PE, FKLLC, C3, PTHNCA #### [address] [phone] [place]: Rodrick Jones MD Potassium [Moles/Vol] 4.3 mmol/L Normal 3.7-5.3 [facility] Comment on above: Performed By: #### I FX, URI, C4, PE, FKLLC, C3, PTHNCA #### [facility] [place] [address] [place]: Rodrick Jones MD Protein [Mass/Vol] 7.8 g/dL Normal 6.4-8.3 [facility] Comment on above: Performed By: #### I FX, URI, C4, PE, FKLLC, C3, PTHNCA #### [facility] [address] [place] [address] [place]: Rodrick Jones MD Sodium [Moles/Vol] 128 mmol/L Low 135-144 [facility] Comment on above: Performed By: #### I FX, URI, C4, PE, FKLLC, C3, PTHNCA #### [facility] [address] [place] [address] [place]: Rodrick Jones MD Urea nitrogen [Mass/Vol] 47 mg/dL High 8-23 [facility] Comment on above: Performed By: #### I FX, URI, C4, PE, FKLLC, C3, PTHNCA #### [facility] [address] [place] [address] [employer] [place]: Rodrick Jones MD Comprehensive Metabolic Pane l w/ Reflex to MGon 06-20-2022 Albumin [Mass/Vol] 3.5 g/dL 3.5 - 5.2 g/dL [facility] Albumin/Globulin [Mass ratio] 0.8 {ratio} Low 1.0 - 2.5 [facility] ALP [Catalytic activity/Vol] 93 U/L 40 - 129 U/L [facility] ALT [Catalytic activity/Vol] 13 U/L 5 - 41 U/L [facility] Anion gap [Moles/Vol] 17 mmol/L 9 - 17 mmol/L [facility] AST [Catalytic activity/Vol] 21 U/L NINF - 40 U/L [facility] Bilirubin [Mass/Vol] 0.7 mg/dL 0.3 - 1 .2 mg/dL [facility] Calcium [Mass/Vol] 9.1 mg/dL 8.6 - 10. 4 mg/dL [facility] Chloride [Moles/Vol] 92 mmol/L Low 98 - 10 7 mmol/L [facility] CO2 [Moles/Vol] 19 mmol/L Low 20 - 31 mmol/L [facility] Creatinine [Mass/Vol] 3.64 mg/dL High 0.70 - 1.20 mg/dL [facility] GFR/1.73 sq M.predicted MDRD (S/P/Bld) [Vol rate/Area] 18 mL/min/{1.73_m2} Low - PINF [facility] Glucose [Mass/Vol] 145 mg/dL High 70 - 99 mg/dL [facility] Interpretation and review of laboratory results Abnormal [facility] Potassium [Moles/Vol] 4.3 mmol/L 3.7 - 5.3 mmol/L [facility] Protein [Mass/Vol] 7.8 g/dL 6.4 - 8.3 g/dL [facility] Sodium [Moles/Vol] 128 mmol/L Low 135 - 144 mmol/L [facility] Urea nitrogen [Mass/Vol] 47 mg/dL High 8 - 23 mg/dL [facility] Flu A/B Ag Detectionon 06-20 Flu A Ag Detection Negative Normal NEG [facility] Comment on above: Result Comment: for Influenza A Antigen Performed By: #### C RP, RENP, CBC, MG #### [facility] [address] [place] [address] [place]: Rodrick Jones MD Flu B Ag Detection Negative Normal NEG [facility] Comment on above: Result Comment: for Influenza B Antigen. Performed By: #### C RP, RENP, CBC, MG #### [facility] [address] [place], [place] [phone] [employer] [place]: Rodrick Jones MD Lactate, Sepsison 06-20-2022 Lactic Acid,Sep Wbld 1.1 mmol/L Normal 0.5-1.9 [facility] Comment on above: Performed By: #### C RP, RENP, CBC, MG #### [email or web address] [address] [place], [place] [phone] [place]: Rodrick Jones MD Lactic Acid, Sepsis, Whole Blood 1.1 mmol/L 0.5 - 1.9 mmol/L [facility] Lactic Acid,Sep Wbld 2.1 mmol/L High 0.5-1.9 [facility] Comment on above: Performed By: #### I FX, URI, C4, PE, FKLLC, C3, PTHNCA #### [facility] [address] [place] [address] [place]: Rodrick Jones MD Interpretation and review of laboratory results Abnormal [facility] Lactic Acid, Sepsis, Whole Blood 2.1 mmol/L High 0.5 - 1.9 mmol/L [facility] Microscopic Urinalysison Bacteria, UA FEW Abnormal None [facility] Casts UA 0 TO 2 [facility] Casts UA COARSELY GRANULAR [facility] Epithelial Cells UA 5 TO 10 [facility] Interpretation and review of laboratory results Abnormal [facility] RBC clumps Auto (Urine sed) [#/Area] TOO NUMEROUS TO COUNT [facility] WBC, UA 5 TO 10 [facility] Bacteria, UA MANY Abnormal None [facility] Casts UA 0 TO 2 [facility] Casts UA COARSELY GRANULAR [facility] Epithelial Cells UA None [facility] Interpretation and review of laboratory results Abnormal [facility] RBC clumps Auto (Urine sed) [#/Area] TOO NUMEROUS TO COUNT [facility] WBC, UA 5 TO 10 [facility] No Panel Informationon 06-20 Radiology Study observation (narrative) [facility] Work Phone: POC Glucose Fingerstickon Glucose [Mass/Vol] 183 mg/dL High 75 - 110 mg/dL [facility] Interpretation and review of laboratory results Abnormal [facility] Glucose [Mass/Vol] 163 mg/dL High 75 - 110 mg/dL [facility] Interpretation and review of laboratory results Abnormal [facility] Glucose [Mass/Vol] 129 mg/dL High 75 - 110 mg/dL [facility] Interpretation and review of laboratory results Abnormal [facility] Glucose [Mass/Vol] 92 mg/dL 75 - 110 mg/dL [facility] RAPID INFLUENZA A/B ANTIGENS on 06-20-2022 FLUAV Ag Ql (Unsp spec) Negative NEGATIVE [facility] FLUBV Ag Ql (Unsp spec) Negative NEGATIVE [facility] [id number] 06-20-2022 SARS-CoV-2 (COVID-19) RNA BENTLEY+probe Ql (Unsp spec) Not detected Normal [facility] Comment on above: Result Comment: Rapid NAAT: The specimen is NEGATIVE for SARS-CoV-2, the novel coronavirus associated with COVID-19. The ID NOW COVID-19 assay is designed to detect the virus that causes COVID-19 in patients with signs and symptoms of infection who are suspected of COVID-19. An individual without symptoms of COVID-19 and who is not shedding SARS-CoV-2 virus would expect to have a negative (not detected) result in this assay. Negative results should be treated as presumptive and, if inconsistent with clinical signs and symptoms or necessary for patient management, should be tested with an alternative molecular assay. Negative results do not preclude SARS-CoV-2 infection and should not be used as the sole basis for patient management decisions. Fact sheet for Healthcare Providers: https://www.fda.gov/media/270073/download Fact sheet for Patients: https://www.fda.gov/media/458561/download Methodology: Isothermal Nucleic Acid Amplification Performed By: #### I FX, URI, C4, PE, FKLLC, C3, PTHNCA #### [facility] [address] [place] [address] [place]: Rodrick Jones MD Troponinon 5 Troponin, High Sens 51 ng/L High 0-[address] [place] [address] Comment on above: Result Comment: High Sensitivity Troponin values cannot be compared with other Troponin methodologies. Performed By: #### I FX, URI, C4, PE, FKLLC, C3, PTHNCA #### [facility] [address] [place] [address] [place]: Rodrick Jones MD Troponin, High Sens 52 ng/L Critically high 022 [facility] Comment on above: Result Comment: High Sensitivity Troponin values cannot be compared with other Troponin methodologies. Performed By: #### I FX, URI, C4, PE, FKLLC, C3, PTHNCA #### [address] [address] [place]: Rodrick Jones MD Interpretation and review of laboratory results Abnormal [facility] Troponin I.cardiac DL <= 0.01 ng/mL [Mass/Vol] 51 ng/L High 0 - 22 ng/L [facility] Interpretation and review of laboratory results Abnormal [facility] Troponin I.cardiac DL <= 0.01 ng/mL [Mass/Vol] 52 ng/L Critically high 0 - 22 ng/L [facility] UA w/Reflex Cultureon 6 Bilirubin, SemiQt,Ur Negative Normal NEG [facility] Comment on above: Performed By: #### B MP, CBC #### [facility] [address] [place] [address] [place]: Rodrick Jones MD Blood, Urine LARGE Abnormal NEG [facility] Comment on above: Performed By: #### B MP, CBC #### [facility] [address] [place] [address] [employer] [place]: Rodrick Jones MD Clarity (U) Cloudy Abnormal CLEAR [facility] Comment on above: Performed By: #### B MP, CBC #### [facility] [address] [place] [address] [place] [place]: Rodrick Jones MD Color (U) Red Abnormal YEL [facility] Comment on above: Result Comment: INTE RPRET WITH CAUTION DUE TO INTENSE COLOR OF URINE. Performed By: #### B MP, CBC #### [facility] [address] [place] [address] [place]: Rodrick Jones MD Glucose Ql (U) Negative Normal NEG [facility] Comment on above: Performed By: #### B MP, CBC #### [facility] [address] [place] [address] [place]: Rodrick Jones MD Ketones Ql (U) Negative Normal NEG [facility] Comment on above: Performed By: #### B MP, CBC #### [facility] [address] [place] [address] [place]: Rodrick Jones MD Leukocyte esterase Test strip Ql (U) SMALL Abnormal NEG [facility] Comment on above: Performed By: #### B MP, CBC #### [facility] [address] [place] [address] [place]: Rodrick Jones MD Nitrite,Ur Positive Abnormal NEG [facility] Comment on above: Performed By: #### B MP, CBC #### [facility] [address] [place] [address] [place]: Rodrick Jones MD PH,Ur 5.0 Normal 5.0-8.0 [facility] Comment on above: Performed By: #### B MP, CBC #### [facility] [address] [place] [address] [place]: Rodrick Jones MD Protein Ql (U) 4+ Abnormal NEG [facility] Comment on above: Performed By: #### B MP, CBC #### [facility] [address] [place] [address] [place]: Rodrick Jones MD Spec. Grabill,Ur 1.015 Normal 1.005-1.030 [facility] Comment on above: Performed By: #### B MP, CBC #### [facility] [address] [place] [address] [place]: Rodrick Jones MD Urobilinogen,Ur Normal Normal NORM [facility] Comment on above: Performed By: #### B MP, CBC #### [facility] [address] [place], [place] [phone] [place]: Rodrick Jones MD Urinalysis with Reflex to Cu ltureon 06-20-2022 Bilirubin Urine Negative NEGATIVE [facility] [employer] Color, UA [place] Abnormal Yellow [facility] Glucose Auto test strip (U) [Mass/Vol] Negative NEGATIVE [facility] Interpretation and review of laboratory results Abnormal [facility] Ketones (U) [Mass/Vol] Negative NEGATIVE [facility] Leukocyte esterase Auto test strip Ql (U) SMALL Abnormal NEGATIVE [facility] Nitrite Auto test strip Ql (U) Negative NEGATIVE [facility] Protein (U) [Mass/Vol] 5.5 mg/dL 5.0 - 8.[address] [facility] Protein (U) [Mass/Vol] 4+ Abnormal NEGATIVE [facility] Specific Grabill, UA 1.010 1.005 - 1.030 [facility] Turbidity UA Cloudy Abnormal Clear [facility] Urine Hgb LARGE Abnormal NEGATIVE [facility] Urobilinogen, Urine Normal Normal [facility] Bilirubin Urine Negative NEGATIVE [facility] [employer] Color, UA Red Abnormal Yellow [facility] Glucose Auto test strip (U) [Mass/Vol] Negative NEGATIVE [facility] Interpretation and review of laboratory results Abnormal [facility] Ketones (U) [Mass/Vol] Negative NEGATIVE [facility] Leukocyte esterase Auto test strip Ql (U) SMALL Abnormal NEGATIVE [facility] Nitrite Auto test strip Ql (U) Positive Abnormal NEGATIVE [facility] Protein (U) [Mass/Vol] 5.0 mg/dL 5.0 - 8.0 [facility] Protein (U) [Mass/Vol] 4+ Abnormal NEGATIVE [facility] Specific Grabill, UA 1.015 1.005 - 1.030 B ON [facility] Turbidity UA Cloudy Abnormal Clear [facility] Urine Hgb LARGE Abnormal NEGATIVE [facility] Urobilinogen, Urine Normal Normal [facility] Urinalysis,Microon 3 Bacteria MANY Abnormal NONE [facility] Comment on above: Performed By: #### B MP, CBC #### [facility] [address] [place] [address] [place]: Rodrick Jones MD Casts 0 TO [address] [place] [address] Comment on above: Result Comment: COAR MEL BALDWIN Performed By: #### B MP, CBC #### [facility] [address] [place] [address] [place]: Rodrick Jones MD Epithelial cells LM Ql (Urine sed) None Normal [address] [place] [address] Comment on above: Performed By: #### B MP, CBC #### [facility] [address] [place] [address] [phone] [place]: Rodrick Jones MD Urine RBC's TOO NUMEROUS TO COUNT Normal 02 [facility] Comment on above: Performed By: #### B MP, CBC #### [facility] [address] [place] [address] [phone] [employer] [place]: Rodrick Jones MD Urine WBC's 5 TO 10 Normal 05 [facility] Comment on above: Performed By: #### B MP, CBC #### [facility] [address] [place] [address] [place]: Rodrick Jones MD XR CHEST PORTABLEon 06-21-19 XR CHEST PORTABLE EXAMINATION: ONE XRAY VIEW OF THE CHEST 06/20/2022 4:04 am COMPARISON: 05/29/2022 HISTORY: ORDERING SYSTEM PROVIDED HISTORY: shortness of breath TECHNOLOGIST PROVIDED HISTORY: shortness of breath Initial encounter FINDINGS: No focal consolidation, pleural effusion or pneumothorax. The cardiomediastinal silhouette is stable. No overt pulmonary edema. The osseous structures are stable. IMPRESSION: No acute cardiopulmonary findings. Interpreted by: Radha Caceres MD Signed by: Radha Caceres MD 06/20/22 Final result Normal [facility] MHPN RIS CONSOLIDATED MHPN RIS CONSOLIDATED [facility] Work Phone: XR CHEST PORTABLEOrdered By: Radha Caceres on 06-20-2022 [facility] Work Phone: POC Glucose Fingerstickon Glucose [Mass/Vol] 269 mg/dL High 75 - 110 mg/dL [facility] Interpretation and review of laboratory results Abnormal [facility] Glucose [Mass/Vol] 248 mg/dL High 75 - 110 mg/dL [facility] Interpretation and review of laboratory results Abnormal [facility] Basic Metabolic Panelon Anion gap [Moles/Vol] 14 mmol/L 9 - 17 mmol/L [facility] Calcium [Mass/Vol] 9.4 mg/dL 8.6 - 10. 4 mg/dL [facility] Chloride [Moles/Vol] 103 mmol/L 98 - 10 7 mmol/L [facility] CO2 [Moles/Vol] 20 mmol/L 20 - 31 mmol/L [facility] Creatinine [Mass/Vol] 2.11 mg/dL High 0.70 - 1.20 mg/dL [facility] GFR/1.73 sq M.predicted MDRD (S/P/Bld) [Vol rate/Area] 35 mL/min/{1.73_m2} Low - PINF [facility] Comment on above: These results are not intended for use in patients <18 years of age. eGFR results are calculated without a race factor using the 2020 CKD-EPI equation. Careful clinical correlation is recommended, particularly when comparing to results calculated using previous equations. The CKD-EPI equation is less accurate in patients with extremes of muscle mass, extra-renal metabolism of creatine, excessive creatine ingestion, or following therapy that affects renal tubular secretion. Glucose [Mass/Vol] 254 mg/dL High 70 - 99 mg/dL [facility] Interpretation and review of laboratory results Abnormal [facility] Potassium [Moles/Vol] 4.4 mmol/L 3.7 - 5.3 mmol/L [facility] Sodium [Moles/Vol] 137 mmol/L 135 - 144 mmol/L [facility] Urea nitrogen [Mass/Vol] 29 mg/dL High 8 - 23 mg/dL [facility] Basic Metabolic Profon 06-10 Anion gap [Moles/Vol] 14 mmol/L Normal 9-17 [facility] Comment on above: Performed By: #### C GAYLE BMPX #### [facility] [place] [address] [place]: You Bro DO Calcium [Mass/Vol] 9.4 mg/dL Normal 8.6-10.4 [facility] Comment on above: Performed By: #### C GAYLE, BMPX #### [facility] [place] [address] [place]: You Bro DO Chloride [Moles/Vol] 103 mmol/L Normal 98-107 [facility] Comment on above: Performed By: #### C DP, BMPX #### [facility] [place] [address] [place]: You Bro DO CO2 [Moles/Vol] 20 mmol/L Normal 20-31 [facility] Comment on above: Performed By: #### C DP, BMPX #### [facility] [address] [place] [address] [place] [employer]: You Bro DO Creatinine [Mass/Vol] 2.11 mg/dL High 0.70-1.20 [facility] Comment on above: Performed By: #### C DP, BMPX #### [facility] [address] [facility] [place] [address] [employer] [place]: You Bro DO GFR/1.73 sq M.predicted among non-blacks MDRD (S/P/Bld) [Vol rate/Area] 35 mL/min/{1.73_m2} Low >60 [facility] Comment on above: Result Comment: These results are not intended for use in patients <18 years of age. eGFR results are calculated without a race factor using the 2020 CKD-EPI equation. Careful clinical correlation is recommended, particularly when comparing to results calculated using previous equations. The CKD-EPI equation is less accurate in patients with extremes of muscle mass, extra-renal metabolism of creatine, excessive creatine ingestion, or following therapy that affects renal tubular secretion. Performed By: #### C DP, BMPX #### [facility] [address] [facility] [place] [address] [employer]: You Bro DO Glucose [Mass/Vol] 254 mg/dL High 70-99 [facility] Comment on above: Performed By: #### C DP, BMPX #### [facility] [address] [facility] [place] [address] [employer]: You Bro DO Potassium [Moles/Vol] 4.4 mmol/L Normal 3.7-5.3 [facility] Comment on above: Performed By: #### C DP, BMPX #### [facility] [address] [facility] [place] [address] [employer]: You Bro DO Sodium [Moles/Vol] 137 mmol/L Normal 135-144 [facility] Comment on above: Performed By: #### C DP, BMPX #### [facility] [place] [address] [employer] [place]: You Bro DO Urea nitrogen [Mass/Vol] 29 mg/dL High 8-23 [facility] Comment on above: Performed By: #### C DP, BMPX #### [facility] [place] [address] [employer]: You Bro DO CBCon 06-10-2022 Erythrocyte distribution width (RBC) [Ratio] 15.0 % High 11.5-14.9 [facility] Comment on above: Performed By: #### C DP, BMPX #### [facility] [address] [place] [address] [employer]: You Bro DO Hematocrit (Bld) [Volume fraction] 40.7 % Low 41-53 [facility] Comment on above: Performed By: #### C GAYLE, BMPX #### [facility] [address] [place] [address] [employer]: You Bro DO Hemoglobin (Bld) [Mass/Vol] 13.7 g/dL Normal 13.5-17.5 [facility] Comment on above: Performed By: #### C DP, BMPX #### [facility] [address] [place] [address] [employer]: You Bro DO MCH (RBC) [Entitic mass] 30.9 pg Normal 26-34 [facility] Comment on above: Performed By: #### C DP, BMPX #### [facility] [address] [place] [address] [employer]: You Bro DO MCHC (RBC) [Mass/Vol] 33.7 g/dL Normal 31-37 [facility] Comment on above: Performed By: #### C DP, BMPX #### [facility] [place] [address] [employer]: You Bro DO MCV (RBC) [Entitic vol] 91.5 fL Normal 80-100 [facility] Comment on above: Performed By: #### C DP, BMPX #### [facility] [address] [place] [address] [employer]: You Bro DO Platelet mean volume (Bld) [Entitic vol] 8.2 fL Normal 6.0-12.0 [facility] Comment on above: Performed By: #### C GAYLE, BMPX #### [facility] [address] [place] [address] [employer]: You Bro DO Platelets (Bld) [#/Vol] 312 10*3/uL Normal 150-450 [facility] Comment on above: Performed By: #### C GAYLE, BMPX #### [facility] [address] [place] [address] [employer]: You Bro DO RBC (Bld) [#/Vol] 4.44 10*6/uL Low 4.5-5.9 [facility] Comment on above: Performed By: #### C GAYLE, BMPX #### [facility] [address] [place] [address] [employer]: You Bro DO WBC (Bld) [#/Vol] 10.3 10*3/uL Normal 3.5-11.0 [facility] Comment on above: Performed By: #### C DP, BMPX #### [facility] [address] [place] [address] [employer]: You Bro DO Hematocrit (Bld) [Volume fraction] 40.7 % Low 41 - 53 % [facility] Hemoglobin (Bld) [Mass/Vol] 13.7 g/dL 13.5 - 17.5 g/dL [facility] Interpretation and review of laboratory results Abnormal [facility] MCH (RBC) [Entitic mass] 30.9 pg 26 - 34 pg [facility] MCHC (RBC) [Mass/Vol] 33.7 g/dL 31 - 37 g/dL B ON [facility] MCV (RBC) [Entitic vol] 91.5 fL 80 - 100 fL [facility] Platelet distribution width (Bld) [Ratio] 15.0 % High 11.5 - 14.9 % [facility] Platelet mean volume (Bld) [Entitic vol] 8.2 fL 6.0 - 12.0 fL [facility] Platelets (Bld) [#/Vol] 312 10*3/uL [facility] RBC (Bld) [#/Vol] 4.44 10*6/uL Low 4.5 - 5.9 m/uL [facility] WBC (Bld) [#/Vol] 10.3 10*3/uL [facility] Lamotrigineon 06-10-2022 Lamotrigine 3.3 ug/mL Normal 3.0-15.0 [facility] Comment on above: Result Comment: Neither a therapeutic or toxic range for Lamotrigine have been well established. Some reports suggest a target for steady-state concentrations of 3 - 15 ug/mL. However, there is not a clear relationship between lamotrigine serum concentrations and clinical response. The assay should be used in conjunction with information available from clinical evaluations and other diagnostic procedures. Multiple measurements of lamotrigine may be needed. Performed By: #### L MERLIN #### [facility] [address] [place] [address] [employer]: Rodrick Jones MD POC Glucose Fingerstickon Glucose [Mass/Vol] 206 mg/dL High 75 - 110 mg/dL [facility] Interpretation and review of laboratory results Abnormal [facility] Glucose [Mass/Vol] 244 mg/dL High 75 - 110 mg/dL [facility] Interpretation and review of laboratory results Abnormal [facility] Glucose [Mass/Vol] 223 mg/dL High 75 - 110 mg/dL [facility] Interpretation and review of laboratory results Abnormal [facility] Glucose [Mass/Vol] 208 mg/dL High 75 - 110 mg/dL [facility] Interpretation and review of laboratory results Abnormal [facility] Lamotrigine Levelon 06-10-19 23 Lamotrigine Lvl 3.3 ug/mL 3.0 - 15.0 ug/mL [facility] Comment on above: Neither a therapeutic or toxic range for Lamotrigine have been well established. Some reports suggest a target for steady-state concentrations of 3 - 15 ug/mL. However, there is not a clear relationship between lamotrigine serum concentrations and clinical response. The assay should be used in conjunction with information available from clinical evaluations and other diagnostic procedures. Multiple measurements of lamotrigine may be needed. [facility] POC Glucose Fingerstickon Glucose [Mass/Vol] 175 mg/dL High 75 - 110 mg/dL [facility] Interpretation and review of laboratory results Abnormal [facility] Glucose [Mass/Vol] 232 mg/dL High 75 - 110 mg/dL [facility] Interpretation and review of laboratory results Abnormal [facility] Glucose [Mass/Vol] 215 mg/dL High 75 - 110 mg/dL [facility] Interpretation and review of laboratory results Abnormal [facility] Glucose [Mass/Vol] 187 mg/dL High 75 - 110 mg/dL [facility] Interpretation and review of laboratory results Abnormal [facility] POC Glucose Fingerstickon Glucose [Mass/Vol] 202 mg/dL High 75 - 110 mg/dL [facility] Interpretation and review of laboratory results Abnormal [facility] Glucose [Mass/Vol] 216 mg/dL High 75 - 110 mg/dL [facility] Interpretation and review of laboratory results Abnormal [facility] Glucose [Mass/Vol] 248 mg/dL High 75 - 110 mg/dL [facility] Interpretation and review of laboratory results Abnormal [facility] Glucose [Mass/Vol] 175 mg/dL High 75 - 110 mg/dL [facility] Interpretation and review of laboratory results Abnormal [facility] POC Glucose Fingerstickon Glucose [Mass/Vol] 219 mg/dL High 75 - 110 mg/dL [facility] Interpretation and review of laboratory results Abnormal [facility] Glucose [Mass/Vol] 221 mg/dL High 75 - 110 mg/dL [facility] Interpretation and review of laboratory results Abnormal [facility] Glucose [Mass/Vol] 180 mg/dL High 75 - 110 mg/dL [facility] Interpretation and review of laboratory results Abnormal [facility] Glucose [Mass/Vol] 181 mg/dL High 75 - 110 mg/dL [facility] Interpretation and review of laboratory results Abnormal [facility] POC Glucose Fingerstickon Glucose [Mass/Vol] 209 mg/dL High 75 - 110 mg/dL [facility] Interpretation and review of laboratory results Abnormal [facility] Glucose [Mass/Vol] 133 mg/dL High 75 - 110 mg/dL [facility] Interpretation and review of laboratory results Abnormal [facility] Glucose [Mass/Vol] 255 mg/dL High 75 - 110 mg/dL [facility] Interpretation and review of laboratory results Abnormal [facility] Glucose [Mass/Vol] 158 mg/dL High 75 - 110 mg/dL [facility] Interpretation and review of laboratory results Abnormal [facility] Basic Metab w/rfx MGon 06-05 Anion gap [Moles/Vol] 11 mmol/L Normal 9-17 [facility] Comment on above: Performed By: #### L IVP, CDP, BMPX #### [facility] [address] [facility] [place] [address] [employer]: You Bro DO Calcium [Mass/Vol] 8.9 mg/dL Normal 8.6-10.4 [facility] Comment on above: Performed By: #### L IVP, CDP, BMPX #### [facility] [address] [facility] [place] [address] [employer]: You Bro DO Chloride [Moles/Vol] 105 mmol/L Normal 98-107 [facility] Comment on above: Performed By: #### L IVP, CDP, BMPX #### [facility] [address] [facility] [place] [address] [employer]: You Bro DO CO2 [Moles/Vol] 24 mmol/L Normal 20-31 [facility] Comment on above: Performed By: #### L IVP, CDP, BMPX #### [facility] [place] [address] [employer]: You Bro DO Creatinine [Mass/Vol] 2.07 mg/dL High 0.70-1.20 [facility] Comment on above: Performed By: #### L IVP, CDP, BMPX #### [facility] [place] [address] [employer]: You Bro DO GFR/1.73 sq M.predicted among non-blacks MDRD (S/P/Bld) [Vol rate/Area] 36 mL/min/{1.73_m2} Low >60 [facility] Comment on above: Result Comment: These results are not intended for use in patients <18 years of age. eGFR results are calculated without a race factor using the 2020 CKD-EPI equation. Careful clinical correlation is recommended, particularly when comparing to results calculated using previous equations. The CKD-EPI equation is less accurate in patients with extremes of muscle mass, extra-renal metabolism of creatine, excessive creatine ingestion, or following therapy that affects renal tubular secretion. Performed By: #### L IVP, CDP, BMPX #### [facility] [address] [facility] [place] [address] [employer]: You Bro DO Glucose [Mass/Vol] 171 mg/dL High 70-99 [facility] Comment on above: Performed By: #### L IVP, CDP, BMPX #### [facility] [address] [place] [address] [employer]: You Bro DO Potassium [Moles/Vol] 3.7 mmol/L Normal 3.7-5.3 [facility] Comment on above: Performed By: #### L IVP, CDP, BMPX #### [facility] [address] [place] [address] [employer]: You Bro DO Sodium [Moles/Vol] 140 mmol/L Normal 135-144 [facility] Comment on above: Performed By: #### L IVP, CDP, BMPX #### [facility] [address] [place] [address] [employer]: You Bro DO Urea nitrogen [Mass/Vol] 27 mg/dL High 8-23 [facility] Comment on above: Performed By: #### L IVP, CDP, BMPX #### [facility] [address] [place] [address]. [place] [address] [employer]: You Bro DO Basic Metabolic Panel w/ Ref artis to MGon 06-05-2022 Anion gap [Moles/Vol] 11 mmol/L 9 - 17 mmol/L [facility] Calcium [Mass/Vol] 8.9 mg/dL 8.6 - 10. 4 mg/dL [facility] Chloride [Moles/Vol] 105 mmol/L 98 - 10 7 mmol/L [facility] CO2 [Moles/Vol] 24 mmol/L 20 - 31 mmol/L [facility] Creatinine [Mass/Vol] 2.07 mg/dL High 0.70 - 1.20 mg/dL [facility] GFR/1.73 sq M.predicted MDRD (S/P/Bld) [Vol rate/Area] 36 mL/min/{1.73_m2} Low - PINF [facility] Comment on above: These results are not intended for use in patients <18 years of age. eGFR results are calculated without a race factor using the 2020 CKD-EPI equation. Careful clinical correlation is recommended, particularly when comparing to results calculated using previous equations. The CKD-EPI equation is less accurate in patients with extremes of muscle mass, extra-renal metabolism of creatine, excessive creatine ingestion, or following therapy that affects renal tubular secretion. Glucose [Mass/Vol] 171 mg/dL High 70 - 99 mg/dL [facility] Potassium [Moles/Vol] 3.7 mmol/L 3.7 - 5.3 mmol/L [facility] Sodium [Moles/Vol] 140 mmol/L 135 - 144 mmol/L [facility] Urea nitrogen [Mass/Vol] 27 mg/dL High 8 - 23 mg/dL [facility] CBC auto differentialon 05-13 Absolute Eos # 0.52 High [place] [facility] Absolute Lymph # 2.50 [facility] Absolute [place] # 0.83 [facility] Basophils (Bld) [#/Vol] 0.10 10*3/uL [facility] Basophils/100 WBC (Bld) 1 % 0 - 2 % [facility] Eosinophils/100 WBC (Bld) 5 % High 0 - 4 % [facility] Hematocrit (Bld) [Volume fraction] 38.0 % Low 41 - 53 % [facility] Hemoglobin (Bld) [Mass/Vol] 12.5 g/dL Low 13.5 - 17.5 g/dL [facility] Interpretation and review of laboratory results Abnormal [facility] Lymphocytes/100 WBC (Bld) 24 % 24 - 44 % [facility] MCH (RBC) [Entitic mass] 31.1 pg 26 - 34 pg [facility] MCHC (RBC) [Mass/Vol] 33.1 g/dL 31 - 37 g/dL B ON [facility] MCV (RBC) [Entitic vol] 94.2 fL 80 - 100 fL [facility] Monocytes/100 WBC (Bld) 8 % High 1 - 7 % [facility] Morphology Cale (Bld) [Interp] ANISOCYTOSIS PRESENT [facility] Platelet distribution width (Bld) [Ratio] 14.3 % 11.5 - 14.9 % [facility] Platelet mean volume (Bld) [Entitic vol] 7.4 fL 6.0 - 12.0 fL [facility] Platelets (Bld) [#/Vol] 357 10*3/uL [facility] RBC (Bld) [#/Vol] 4.03 10*6/uL Low 4.5 - 5.9 m/uL [facility] Segmented neutrophils/100 WBC (Bld) 62 % 36 - 66 % [facility] Segs Absolute 6.45 [facility] WBC (Bld) [#/Vol] 10.4 10*3/uL [facility] with Diffon 06-05-2022 Abs. Basophil 0.10 k/uL Normal 0.0-0.2 [facility] Comment on above: Performed By: #### L IVP, CDP, BMPX #### [facility] [address] [place] [address] [employer]: You Bro DO Abs.Neutrophil (Seg) 6.45 k/uL Normal 1.3-9.1 [facility] Comment on above: Performed By: #### L IVP, CDP, BMPX #### [facility] [address] [place] [address] [employer]: You Bro DO Basophils/100 WBC (Bld) 1 % Normal 0-2 [facility] Comment on above: Performed By: #### L IVP, CDP, BMPX #### [facility] [address] [place] [address] [employer]: You Bro DO Eosinophils (Bld) [#/Vol] 0.52 10*3/uL High 0.0-0.4 [facility] Comment on above: Performed By: #### L IVP, CDP, BMPX #### [facility] [address] [place] [address] [employer]: You Bro DO Eosinophils/100 WBC (Bld) 5 % High 0-4 [facility] Comment on above: Performed By: #### L IVP, CDP, BMPX #### [facility] [address] [facility] [place] [address] [employer]: You Bro DO Lymphocytes (Bld) [#/Vol] 2.50 10*3/uL Normal 1.0-4.8 [facility] Comment on above: Performed By: #### L IVP, CDP, BMPX #### [facility] [address] [facility] [place] [address] [employer]: You Bro DO Lymphocytes/100 WBC (Bld) 24 % Normal 24-44 [facility] Comment on above: Performed By: #### L IVP, CDP, BMPX #### [facility] [address] [place] [address] [employer]: You Bro DO Monocytes (Bld) [#/Vol] 0.83 10*3/uL Normal 0.1-1.3 [facility] Comment on above: Performed By: #### L IVP, CDP, BMPX #### [facility] [address] [facility] [place] [address] [employer]: You Bro DO Monocytes/100 WBC (Bld) 8 % High 1-7 [facility] Comment on above: Performed By: #### L IVP, CDP, BMPX #### [facility] [place] [address] [employer]: You Bro DO Morphology Cale (Bld) [Interp] ANISOCYTOSIS PRESENT Normal [facility] Comment on above: Performed By: #### L IVP, CDP, BMPX #### [facility] [facility] [place] [address] [employer]: You Bro DO Neutrophil (Seg) 62 % Normal 36-66 [facility] Comment on above: Performed By: #### L IVP, CDP, BMPX #### [facility] [place] [address] [employer]: You Bro DO Erythrocyte distribution width (RBC) [Ratio] 14.3 % Normal 11.5-14.9 [facility] Comment on above: Performed By: #### L IVP, CDP, BMPX #### [facility] [place] [address] [employer]: You Bro DO Hematocrit (Bld) [Volume fraction] 38.0 % Low 41-53 [facility] Comment on above: Performed By: #### L IVP, CDP, BMPX #### [facility] [place] [address] [employer]: You Bro DO Hemoglobin (Bld) [Mass/Vol] 12.5 g/dL Low 13.5-17.5 [facility] Comment on above: Performed By: #### L IVP, CDP, BMPX #### [facility] [place] [address] [employer]: You Bro DO MCH (RBC) [Entitic mass] 31.1 pg Normal 26-34 [facility] Comment on above: Performed By: #### L IVP, CDP, BMPX #### [facility] [address] [place] [address] [employer]: You Bro DO MCHC (RBC) [Mass/Vol] 33.1 g/dL Normal 31-37 [facility] Comment on above: Performed By: #### L IVP, CDP, BMPX #### [facility] [address] [place] [address] [employer]: You Bro DO MCV (RBC) [Entitic vol] 94.2 fL Normal 80-100 [facility] Comment on above: Performed By: #### L IVP, CDP, BMPX #### [facility] [address] [place] [address] [employer]: You Bro DO Platelet mean volume (Bld) [Entitic vol] 7.4 fL Normal 6.0-12.0 [facility] Comment on above: Performed By: #### L IVP, CDP, BMPX #### [facility] [place] [address] [employer]: You Bro DO Platelets (Bld) [#/Vol] 357 10*3/uL Normal 150-450 [facility] Comment on above: Performed By: #### L IVP, CDP, BMPX #### [facility] [address] [place] [address] [employer]: You Bro DO RBC (Bld) [#/Vol] 4.03 10*6/uL Low 4.5-5.9 [facility] Comment on above: Performed By: #### L IVP, CDP, BMPX #### [facility] [address] [place] [address] [employer]: You Bro DO WBC (Bld) [#/Vol] 10.4 10*3/uL Normal 3.5-11.0 [facility] Comment on above: Performed By: #### L IVP, CDP, BMPX #### [facility] [address] [place] [address] [employer]: You Bro DO Hepatic function panelon Albumin [Mass/Vol] 3.4 g/dL Low 3.5 - 5.2 g/dL [facility] ALP [Catalytic activity/Vol] 92 U/L 40 - 129 U/L [facility] ALT [Catalytic activity/Vol] 33 U/L 5 - 41 U/L [facility] AST [Catalytic activity/Vol] 30 U/L NINF - 40 U/L [facility] Bilirubin [Mass/Vol] 0.4 mg/dL 0.3 - 1 .2 mg/dL [facility] Bilirubin.direct [Mass/Vol] 0.1 mg/dL NINF - 0.3 mg/dL [facility] Bilirubin.indirect [Mass/Vol] 0.3 mg/dL 0.0 - 1.0 mg/dL [facility] Protein [Mass/Vol] 7.2 g/dL 6.4 - 8.3 g/dL [facility] Liver Profileon 06-05-2022 Albumin [Mass/Vol] 3.4 g/dL Low 3.5-5.2 [facility] Comment on above: Performed By: #### L IVP, CDP, BMPX #### [facility] [address] [place] [address] [employer]: You Bro DO Alkaline Phos 92 U/L Normal 40-129 [facility] Comment on above: Performed By: #### L IVP, CDP, BMPX #### [facility] [address] [place] [address] [employer]: You Bro DO ALT [Catalytic activity/Vol] 33 U/L Normal 5-41 [facility] Comment on above: Performed By: #### L IVP, CDP, BMPX #### [facility] [address] [place] [address] [employer]: You Bro DO AST [Catalytic activity/Vol] 30 U/L Normal <40 [facility] Comment on above: Performed By: #### L IVP, CDP, BMPX #### [facility] [address] [facility] [place] [address] [employer]: You Bro DO Bilirubin [Mass/Vol] 0.4 mg/dL Normal 0.3-1.2 [facility] Comment on above: Performed By: #### L IVMalika, CDP, BMPX #### [facility] [address] [facility] [place] [address] [employer]: You Bro DO Bilirubin, Indirect 0.3 mg/dL Normal 0.0-1.0 [facility] Comment on above: Performed By: #### L IVP, CDP, BMPX #### [facility] [address] [facility] [place] [address] [employer]: You Bro DO Bilirubin.indirect [Mass/Vol] 0.1 mg/dL Normal <0.3 [facility] Comment on above: Performed By: #### L IVP, CDP, BMPX #### [facility] [address] [facility] [place] [address] [employer]: You Bro DO Protein [Mass/Vol] 7.2 g/dL Normal 6.4-8.3 [facility] Comment on above: Performed By: #### L IVP, CDP, BMPX #### [facility] [address] [place] [address] [employer]: You Bro DO No Panel Informationon 06-05 Interpretation and review of laboratory results Abnormal [facility] POC Glucose Fingerstickon Glucose [Mass/Vol] 216 mg/dL High 75 - 110 mg/dL [facility] Interpretation and review of laboratory results Abnormal [facility] [facility] Glucose [Mass/Vol] 178 mg/dL High 75 - 110 mg/dL [facility] Interpretation and review of laboratory results Abnormal [facility] Glucose [Mass/Vol] 218 mg/dL High 75 - 110 mg/dL [facility] Interpretation and review of laboratory results Abnormal [facility] Glucose [Mass/Vol] 156 mg/dL High 75 - 110 mg/dL [facility] Interpretation and review of laboratory results Abnormal [facility] Basic Metabolic Panelon 05-13 Anion gap [Moles/Vol] 12 mmol/L 9 - 17 mmol/L [facility] Calcium [Mass/Vol] 9.0 mg/dL 8.6 - 10. 4 mg/dL [facility] Chloride [Moles/Vol] 111 mmol/L High 98 - 10 7 mmol/L [facility] CO2 [Moles/Vol] 20 mmol/L 20 - 31 mmol/L [facility] Creatinine [Mass/Vol] 2.23 mg/dL High 0.70 - 1.20 mg/dL [facility] GFR/1.73 sq M.predicted MDRD (S/P/Bld) [Vol rate/Area] 33 mL/min/{1.73_m2} Low - PINF [facility] Comment on above: These results are not intended for use in patients <18 years of age. eGFR results are calculated without a race factor using the 2020 CKD-EPI equation. Careful clinical correlation is recommended, particularly when comparing to results calculated using previous equations. The CKD-EPI equation is less accurate in patients with extremes of muscle mass, extra-renal metabolism of creatine, excessive creatine ingestion, or following therapy that affects renal tubular secretion. Glucose [Mass/Vol] 56 mg/dL Low 70 - 99 mg/dL [facility] Interpretation and review of laboratory results Abnormal [facility] Potassium [Moles/Vol] 4.4 mmol/L 3.7 - 5.3 mmol/L [facility] Sodium [Moles/Vol] 143 mmol/L 135 - 144 mmol/L [facility] Urea nitrogen [Mass/Vol] 27 mg/dL High 8 - 23 mg/dL [facility] Basic Metabolic Profon 06-04 Glucose [Mass/Vol] 56 mg/dL Low 70-99 [facility] Comment on above: Performed By: #### B MP #### [address] [address] [employer]: Rodrick Jones MD Anion gap [Moles/Vol] 12 mmol/L Normal 9-17 [facility] Comment on above: Performed By: #### B MP #### [address] [address] [employer]: Rodrick Jones MD Calcium [Mass/Vol] 9.0 mg/dL Normal 8.6-10.4 [facility] Comment on above: Performed By: #### B MP #### [facility] [address] [place] [address] [employer]: Rodrick Jones MD Chloride [Moles/Vol] 111 mmol/L High 98-107 [facility] Comment on above: Performed By: #### B MP #### [facility] [address] [place] [address] [employer]: Rodrick Jones MD CO2 [Moles/Vol] 20 mmol/L Normal 20-31 [facility] Comment on above: Performed By: #### B MP #### [address] [address] [employer]: Rodrick Jones MD Creatinine [Mass/Vol] 2.23 mg/dL High 0.70-1.20 [facility] Comment on above: Performed By: #### B MP #### [address] [address] [employer]: Rodrick Jones MD GFR/1.73 sq M.predicted among non-blacks MDRD (S/P/Bld) [Vol rate/Area] 33 mL/min/{1.73_m2} Low >60 [facility] Comment on above: Result Comment: These results are not intended for use in patients <18 years of age. eGFR results are calculated without a race factor using the 2020 CKD-EPI equation. Careful clinical correlation is recommended, particularly when comparing to results calculated using previous equations. The CKD-EPI equation is less accurate in patients with extremes of muscle mass, extra-renal metabolism of creatine, excessive creatine ingestion, or following therapy that affects renal tubular secretion. Performed By: #### B MP #### [address] [address] [employer]: Rodrick Jones MD Potassium [Moles/Vol] 4.4 mmol/L Normal 3.7-5.3 [facility] Comment on above: Performed By: #### B MP #### [address] [address] [employer]: Rodrick Jones MD Sodium [Moles/Vol] 143 mmol/L Normal 135-144 [facility] Comment on above: Performed By: #### B MP #### [address] [address] [employer]: Rodrick Jones MD Urea nitrogen [Mass/Vol] 27 mg/dL High 8-23 [facility] Comment on above: Performed By: #### B #### [facility] [address] [place] [address] [employer]: Rodrick Jones MD POC Glucose Fingerstickon Glucose [Mass/Vol] 213 mg/dL High 75 - 110 mg/dL [facility] Interpretation and review of laboratory results Abnormal [facility] Glucose [Mass/Vol] 215 mg/dL High 75 - 110 mg/dL [facility] Interpretation and review of laboratory results Abnormal [facility] Glucose [Mass/Vol] 107 mg/dL 75 - 110 mg/dL [facility] Glucose [Mass/Vol] 79 mg/dL 75 - 110 mg/dL [facility] [employer] CAL [employer] Basic Metabolic Panelon 05-13 Anion gap [Moles/Vol] 14 mmol/L 9 - 17 mmol/L [facility] Calcium [Mass/Vol] 8.8 mg/dL 8.6 - 10. 4 mg/dL [facility] Chloride [Moles/Vol] 105 mmol/L 98 - 10 7 mmol/L [facility] CO2 [Moles/Vol] 20 mmol/L 20 - 31 mmol/L [facility] Creatinine [Mass/Vol] 2.05 mg/dL High 0.70 - 1.20 mg/dL [facility] GFR/1.73 sq M.predicted MDRD (S/P/Bld) [Vol rate/Area] 36 mL/min/{1.73_m2} Low - PINF [facility] Comment on above: These results are not intended for use in patients <18 years of age. eGFR results are calculated without a race factor using the 2020 CKD-EPI equation. Careful clinical correlation is recommended, particularly when comparing to results calculated using previous equations. The CKD-EPI equation is less accurate in patients with extremes of muscle mass, extra-renal metabolism of creatine, excessive creatine ingestion, or following therapy that affects renal tubular secretion. Glucose [Mass/Vol] 197 mg/dL High 70 - 99 mg/dL [facility] Interpretation and review of laboratory results Abnormal [facility] Potassium [Moles/Vol] 4.5 mmol/L 3.7 - 5.3 mmol/L [facility] Comment on above: SPECIMEN SLIGHTLY HE MOLYZED, RESULTS MAY BE ADVERSELY AFFECTED. Sodium [Moles/Vol] 139 mmol/L 135 - 144 mmol/L [facility] Urea nitrogen [Mass/Vol] 26 mg/dL High 8 - 23 mg/dL [facility] Basic Metabolic Profon 06-03 Anion gap [Moles/Vol] 14 mmol/L Normal 9-17 [facility] Comment on above: Performed By: #### C RP, RENP, CBC, MG #### [facility] [address] [place] [address] [employer]: Rodrick Jones MD Calcium [Mass/Vol] 8.8 mg/dL Normal 8.6-10.4 [facility] Comment on above: Performed By: #### C RP, RENP, CBC, MG #### [facility] [address] [place] [address] [employer]: Rodrick Jones MD Chloride [Moles/Vol] 105 mmol/L Normal 98-107 [facility] Comment on above: Performed By: #### C RP, RENP, CBC, MG #### [facility] [address] [place] [address] [employer]: Rodrick Jones MD CO2 [Moles/Vol] 20 mmol/L Normal 20-31 [facility] Comment on above: Performed By: #### C RP, RENP, CBC, MG #### [facility] [address] [place] [address] [employer]: Rodrick Jones MD Creatinine [Mass/Vol] 2.05 mg/dL High 0.70-1.20 [facility] Comment on above: Performed By: #### C RP, RENP, CBC, MG #### [facility] [address] [place] [address] [employer]: Rodrick Jones MD GFR/1.73 sq M.predicted among non-blacks MDRD (S/P/Bld) [Vol rate/Area] 36 mL/min/{1.73_m2} Low >60 [facility] Comment on above: Result Comment: These results are not intended for use in patients <18 years of age. eGFR results are calculated without a race factor using the 2020 CKD-EPI equation. Careful clinical correlation is recommended, particularly when comparing to results calculated using previous equations. The CKD-EPI equation is less accurate in patients with extremes of muscle mass, extra-renal metabolism of creatine, excessive creatine ingestion, or following therapy that affects renal tubular secretion. Performed By: #### C RP, RENP, CBC, MG #### [address] [address] [employer]: Rodrick Jones MD Glucose [Mass/Vol] 197 mg/dL High 70-99 [facility] Comment on above: Performed By: #### C RP, RENP, CBC, MG #### [facility] [address] [place] [address] [employer]: Rodrick Jones MD Potassium [Moles/Vol] 4.5 mmol/L Normal 3.7-5.3 [facility] Comment on above: Result Comment: SPEC IMEN SLIGHTLY HEMOLYZED, RESULTS MAY BE ADVERSELY AFFECTED. Performed By: #### C RP, RENP, CBC, MG #### [facility] [address] [place] [address] [employer]: Rodrick Jones MD Sodium [Moles/Vol] 139 mmol/L Normal 135-144 [facility] Comment on above: Performed By: #### C RP, RENP, CBC, MG #### [facility] [address] [place] [address] [employer]: Rodrick Jones MD Urea nitrogen [Mass/Vol] 26 mg/dL High 8-23 [facility] Comment on above: Performed By: #### C RP, RENP, CBC, MG #### [facility] [place], [place] [id number] [employer]: Rodrick Jones MD POC Glucose Fingerstickon Glucose [Mass/Vol] 140 mg/dL High 75 - 110 mg/dL [facility] Interpretation and review of laboratory results Abnormal [facility] Glucose [Mass/Vol] 181 mg/dL High 75 - 110 mg/dL [facility] Interpretation and review of laboratory results Abnormal [facility] Glucose [Mass/Vol] 206 mg/dL High 75 - 110 mg/dL [facility] Interpretation and review of laboratory results Abnormal [facility] Glucose [Mass/Vol] 107 mg/dL 75 - 110 mg/dL [facility] Glucose [Mass/Vol] 96 mg/dL 75 - 110 mg/dL [facility] Glucose [Mass/Vol] 71 mg/dL Low 75 - 110 mg/dL [facility] Interpretation and review of laboratory results Abnormal [facility] Basic Metab w/rfx MGon 06-02 Anion gap [Moles/Vol] 13 mmol/L Normal 9-17 [facility] Comment on above: Performed By: #### C RP, RENP, CBC, MG #### [facility] [place], [place] [phone] [employer]: Rodrick Jones MD Calcium [Mass/Vol] 8.6 mg/dL Normal 8.6-10.4 [facility] Comment on above: Performed By: #### C RP, RENP, CBC, MG #### [facility] [address] [place], [place] [phone] [employer]: Rodrick Jones MD Chloride [Moles/Vol] 108 mmol/L High 98-107 [facility] Comment on above: Performed By: #### C RP, RENP, CBC, MG #### [facility] [address] [place] [address] [employer]: Rodrick Jones MD CO2 [Moles/Vol] 20 mmol/L Normal 20-31 [facility] Comment on above: Performed By: #### C RP, RENP, CBC, MG #### [facility] [address] [place] [address] [employer]: Rodrick Jones MD Creatinine [Mass/Vol] 2.22 mg/dL High 0.70-1.20 [facility] Comment on above: Performed By: #### C RP, RENP, CBC, MG #### [facility] [address] [place] [address] [employer]: Rodrick Jones MD GFR/1.73 sq M.predicted among non-blacks MDRD (S/P/Bld) [Vol rate/Area] 33 mL/min/{1.73_m2} Low >60 [facility] Comment on above: Result Comment: These results are not intended for use in patients <18 years of age. eGFR results are calculated without a race factor using the 2020 CKD-EPI equation. Careful clinical correlation is recommended, particularly when comparing to results calculated using previous equations. The CKD-EPI equation is less accurate in patients with extremes of muscle mass, extra-renal metabolism of creatine, excessive creatine ingestion, or following therapy that affects renal tubular secretion. Performed By: #### C RP, RENP, CBC, MG #### [facility] [place] [address] [employer]: Rodrick Jones MD Glucose [Mass/Vol] 181 mg/dL High 70-99 [facility] Comment on above: Performed By: #### C RP, RENP, CBC, MG #### [facility] [address] [place] [address] [employer]: Rodrick Jones MD Potassium [Moles/Vol] 4.0 mmol/L Normal 3.7-5.3 [facility] Comment on above: Performed By: #### C RP, RENP, CBC, MG #### [facility] [address] [place], [place] [phone] [employer]: Rodrick Jones MD Sodium [Moles/Vol] 141 mmol/L Normal 135-144 [facility] Comment on above: Performed By: #### C RP, RENP, CBC, MG #### [facility] [address] [place], [place] [phone] [employer]: Rodrick Jones MD Urea nitrogen [Mass/Vol] 31 mg/dL High 8-23 [facility] Comment on above: Performed By: #### C RP, RENP, CBC, MG #### [facility] [place], [place] [phone] [employer]: Rodrick Jones MD Basic Metabolic Panel w/ Ref artis to [facility] 06-02-2022 Anion gap [Moles/Vol] 13 mmol/L 9 - 17 mmol/L [facility] Calcium [Mass/Vol] 8.6 mg/dL 8.6 - 10. 4 mg/dL [facility] Chloride [Moles/Vol] 108 mmol/L High 98 - 10 7 mmol/L [facility] CO2 [Moles/Vol] 20 mmol/L 20 - 31 mmol/L [facility] Creatinine [Mass/Vol] 2.22 mg/dL High 0.70 - 1.20 mg/dL [facility] GFR/1.73 sq M.predicted MDRD (S/P/Bld) [Vol rate/Area] 33 mL/min/{1.73_m2} Low - PINF [facility] Comment on above: These results are not intended for use in patients <18 years of age. eGFR results are calculated without a race factor using the 2020 CKD-EPI equation. Careful clinical correlation is recommended, particularly when comparing to results calculated using previous equations. The CKD-EPI equation is less accurate in patients with extremes of muscle mass, extra-renal metabolism of creatine, excessive creatine ingestion, or following therapy that affects renal tubular secretion. Glucose [Mass/Vol] 181 mg/dL High 70 - 99 mg/dL [facility] Interpretation and review of laboratory results Abnormal [facility] Potassium [Moles/Vol] 4.0 mmol/L 3.7 - 5.3 mmol/L [facility] Sodium [Moles/Vol] 141 mmol/L 135 - 144 mmol/L [facility] Urea nitrogen [Mass/Vol] 31 mg/dL High 8 - 23 mg/dL [facility] CBCon 06-02-2022 Erythrocyte distribution width (RBC) [Ratio] 13.8 % Normal 11.8-14.4 [facility] Comment on above: Performed By: #### C RP, RENP, CBC, MG #### [facility] [address] [place] [phone] [employer]: Rodrick Jones MD Hematocrit (Bld) [Volume fraction] 40.3 % Low 40.7-50.3 [facility] Comment on above: Performed By: #### C RP, RENP, CBC, MG #### [facility] [address] [place] [address] [employer]: Rodrick Jones MD Hemoglobin (Bld) [Mass/Vol] 12.9 g/dL Low 13.0-17.0 [facility] Comment on above: Performed By: #### C RP, RENP, CBC, MG #### [facility] [address] [place] [phone] [employer]: Rodrick Jones MD MCH (RBC) [Entitic mass] 30.8 pg Normal 25.2-33.5 [facility] Comment on above: Performed By: #### C RP, RENP, CBC, MG #### [facility] [address] [place] [phone] [employer]: Rodrick Jones MD MCHC (RBC) [Mass/Vol] 32.0 g/dL Normal 28.4-34.8 [facility] Comment on above: Performed By: #### C RP, RENP, CBC, MG #### [facility] [address] [place] [address] [employer]: Rodrick Jones MD MCV (RBC) [Entitic vol] 96.2 fL Normal 82.6-102.9 [facility] Comment on above: Performed By: #### C RP, RENP, CBC, MG #### [facility] [address] [place] [address] [employer]: Rodrick Jones MD NRBC Automated 0.0 per 100 WBC Normal 0.0 [facility] Comment on above: Performed By: #### C RP, RENP, CBC, MG #### [address] [address] [employer]: Rodrick Jones MD Platelet mean volume (Bld) [Entitic vol] 10.3 fL Normal 8.1-13.5 [facility] Comment on above: Performed By: #### C RP, RENP, CBC, MG #### [address] [address] [employer]: Rodrick Jones MD Platelets (Bld) [#/Vol] 336 10*3/uL Normal 138-453 [facility] Comment on above: Performed By: #### C RP, RENP, CBC, MG #### [address] [address] [employer]: Rodrick Jones MD RBC (Bld) [#/Vol] 4.19 10*6/uL Low 4.21-5.77 [facility] Comment on above: Performed By: #### C RP, RENP, CBC, MG #### [address] [address] [employer]: Rodrick Jones MD WBC (Bld) [#/Vol] 10.4 10*3/uL Normal 3.5-11.3 [facility] Comment on above: Performed By: #### C RP, RENP, CBC, MG #### [facility] [address] [place], [place] [phone] [employer]: Rodrick Jones MD Hematocrit (Bld) [Volume fraction] 40.3 % Low 40.7 - 50.3 % [facility] Hemoglobin (Bld) [Mass/Vol] 12.9 g/dL Low 13.0 - 17.0 g/dL [facility] Interpretation and review of laboratory results Abnormal [facility] MCH (RBC) [Entitic mass] 30.8 pg 25.2 - 33.5 pg [facility] MCHC (RBC) [Mass/Vol] 32.0 g/dL 28.4 - 34.8 g/dL [facility] MCV (RBC) [Entitic vol] 96.2 fL 82.6 - 102.9 fL [facility] NRBC Automated 0.0 0.0 per 100 WBC [facility] Platelet distribution width (Bld) [Ratio] 13.8 % 11.8 - 14.4 % [facility] Platelet mean volume (Bld) [Entitic vol] 10.3 fL 8.1 - 13.5 fL [facility] Platelets (Bld) [#/Vol] 336 10*3/uL [facility] RBC (Bld) [#/Vol] 4.19 10*6/uL Low 4.21 - 5.7 7 m/uL [facility] WBC (Bld) [#/Vol] 10.4 10*3/uL [facility] Cult,Bloodon 06-02-2022 Cult,Blood Specimen Description .BLOOD Culture NO GROWTH 5 DAYS Report Status FINAL 06/02/2022 Normal [facility] Comment on above: Performed By: #### B MP, CBC #### [facility] [address] [place] [address] [employer]: Rodrick Jones MD Cult,Blood Specimen Description .BLOOD Culture NO GROWTH 5 DAYS Report Status FINAL 06/02/2022 Normal [facility] Comment on above: Performed By: #### I FX, URI, C4, PE, FKLLC, C3, PTHNCA #### [facility] [address] [place] [address] [employer]: Rodrick Jones MD Culture, Blood 1on 3 Microorganism identified Cx Nom (Unsp spec) NO GROWTH 5 DAYS [facility] Specimen Description .BLOOD [facility] Microorganism identified Cx Nom (Unsp spec) NO GROWTH 5 DAYS [facility] Specimen Description .BLOOD [facility] MRI BRAIN WO CONTRASTon 05-13 MRI BRAIN WO CONTRAST EXAMINATION: MRI OF THE BRAIN WITHOUT CONTRAST 06/02/2022 6:57 pm TECHNIQUE: Multiplanar multisequence MRI of the brain was performed without the administration of intravenous contrast. COMPARISON: None. HISTORY: ORDERING SYSTEM PROVIDED HISTORY: tremors TECHNOLOGIST PROVIDED HISTORY: tremors Reason for Exam: Tremors. FINDINGS: INTRACRANIAL STRUCTURES/VENTRICLE S: There is no acute infarct. No mass effect or midline shift. No evidence of an acute intracranial hemorrhage. The ventricles and sulci are normal in size and configuration. The sellar/suprasellar regions appear unremarkable. The normal signal voids within the major intracranial vessels appear maintained. There are scattered periventricular and deep subcortical white matter T2/FLAIR hyperintensities, consistent with microangiopathic change. There is mild parenchymal volume loss. ORBITS: The visualized portion of the orbits demonstrate no acute abnormality. SINUSES: There is scattered mucosal thickening in the paranasal sinuses. The mastoid air cells are clear. BONES/SOFT TISSUES: The bone marrow signal intensity appears normal. The soft tissues demonstrate no acute abnormality. IMPRESSION: 1. No acute intracranial abnormality. 2. Microangiopathic change. Interpreted by: Vandana Tyson MD Signed by: Vandana Tyson MD 06/02/22 Final result Normal [facility] 1. No acute intracranial abnormality. 2. Microangiopathic change. [facility] RIS CONSOLIDATED EXAMINATION: MRI OF THE BRAIN WITHOUT CONTRAST 06/02/2022 6:57 pm TECHNIQUE: Multiplanar multisequence MRI of the brain was performed without the administration of intravenous contrast. COMPARISON: None. HISTORY: ORDERING SYSTEM PROVIDED HISTORY: tremors TECHNOLOGIST PROVIDED HISTORY: tremors Reason for Exam: Tremors. FINDINGS: INTRACRANIAL STRUCTURES/VENTRICLE S: There is no acute infarct. No mass effect or midline shift. No evidence of an acute intracranial hemorrhage. The ventricles and sulci are normal in size and configuration. The sellar/suprasellar regions appear unremarkable. The normal signal voids within the major intracranial vessels appear maintained. There are scattered periventricular and deep subcortical white matter T2/FLAIR hyperintensities, consistent with microangiopathic change. There is mild parenchymal volume loss. ORBITS: The visualized portion of the orbits demonstrate no acute abnormality. SINUSES: There is scattered mucosal thickening in the paranasal sinuses. The mastoid air cells are clear. BONES/SOFT TISSUES: The bone marrow signal intensity appears normal. The soft tissues demonstrate no acute abnormality. [facility] Vandana Masters MD - 06/02/2022 EXAMINATION: MRI OF THE BRAIN WITHOUT CONTRAST 06/02/2022 6:57 pm TECHNIQUE: Multiplanar multisequence MRI of the brain was performed without the administration of intravenous contrast. COMPARISON: None. HISTORY: ORDERING SYSTEM PROVIDED HISTORY: tremors TECHNOLOGIST PROVIDED HISTORY: tremors Reason for Exam: Tremors. FINDINGS: INTRACRANIAL STRUCTURES/VENTRICLE S: There is no acute infarct. No mass effect or midline shift. No evidence of an acute intracranial hemorrhage. The ventricles and sulci are normal in size and configuration. The sellar/suprasellar regions appear unremarkable. The normal signal voids within the major intracranial vessels appear maintained. There are scattered periventricular and deep subcortical white matter T2/FLAIR hyperintensities, consistent with microangiopathic change. There is mild parenchymal volume loss. ORBITS: The visualized portion of the orbits demonstrate no acute abnormality. SINUSES: There is scattered mucosal thickening in the paranasal sinuses. The mastoid air cells are clear. BONES/SOFT TISSUES: The bone marrow signal intensity appears normal. The soft tissues demonstrate no acute abnormality. IMPRESSION: 1. No acute intracranial abnormality. 2. Microangiopathic change. [employer] Phone: Radiology Study observation (narrative) [employer] Phone: MRI BRAIN WO CONTRASTOrdered By: Vandana Tyson on 06-02-2022 LIANAI Work Phone: POC Glucose Fingerstickon Glucose [Mass/Vol] 89 mg/dL 75 - 110 mg/dL [facility] Glucose [Mass/Vol] 110 mg/dL 75 - 110 mg/dL [facility] [place] [facility] Glucose [Mass/Vol] 75 mg/dL 75 - 110 mg/dL [facility] Glucose [Mass/Vol] 64 mg/dL Low 75 - 110 mg/dL [facility] [facility] [employer] Interpretation and review of laboratory results Abnormal [facility] SECE[facility]Y HEALTH [facility] Glucose [Mass/Vol] 85 mg/dL 75 - 110 mg/dL [facility] [facility] Glucose [Mass/Vol] 57 mg/dL Low 75 - 110 mg/dL [facility] [employer] Interpretation and review of laboratory results Abnormal [facility] [facility] Glucose [Mass/Vol] 49 mg/dL Low 75 - 110 mg/dL [facility] Interpretation and review of laboratory results Abnormal [facility] [facility] Glucose [Mass/Vol] 181 mg/dL High 75 - 110 mg/dL [facility] Interpretation and review of laboratory results Abnormal [facility] [facility] Glucose [Mass/Vol] 183 mg/dL High 75 - 110 mg/dL [facility] Interpretation and review of laboratory results Abnormal [facility] Basic Metab w/rfx MGon 06-01 Anion gap [Moles/Vol] 12 mmol/L Normal 9-17 [facility] Comment on above: Performed By: #### B MP, CBC #### [facility] [address] [place] [address] [employer]: Rodrick Jones MD Calcium [Mass/Vol] 8.6 mg/dL Normal 8.6-10.4 [facility] Comment on above: Performed By: #### B MP, CBC #### [facility] [address] [place] [address] [employer]: Rodrick Jones MD Chloride [Moles/Vol] 108 mmol/L High 98-107 [facility] Comment on above: Performed By: #### B MP, CBC #### [facility] [address] [place] [address] [employer]: Rodrick Jones MD CO2 [Moles/Vol] 22 mmol/L Normal 20-31 [facility] Comment on above: Performed By: #### B MP, CBC #### [facility] [address] [place] [address] [employer]: Rodrick Jones MD Creatinine [Mass/Vol] 2.52 mg/dL High 0.70-1.20 [facility] Comment on above: Performed By: #### B MP, CBC #### [facility] [address] [place] [address] [employer]: Rodrick Jones MD GFR/1.73 sq M.predicted among non-blacks MDRD (S/P/Bld) [Vol rate/Area] 28 mL/min/{1.73_m2} Low >60 [facility] Comment on above: Result Comment: These results are not intended for use in patients <18 years of age. eGFR results are calculated without a race factor using the 2020 CKD-EPI equation. Careful clinical correlation is recommended, particularly when comparing to results calculated using previous equations. The CKD-EPI equation is less accurate in patients with extremes of muscle mass, extra-renal metabolism of creatine, excessive creatine ingestion, or following therapy that affects renal tubular secretion. Performed By: #### B MP, CBC #### [facility] [address] [place] [address] [employer]: Rodrick Jones MD Glucose [Mass/Vol] 74 mg/dL Normal 70-99 [facility] Comment on above: Performed By: #### B MP, CBC #### [facility] [address] [place] [address] [employer]: Rodrick Jones MD Potassium [Moles/Vol] 3.6 mmol/L Low 3.7-5.3 [facility] Comment on above: Performed By: #### B MP, CBC #### [facility] [address] [place] [address] [employer]: Rodrick Jones MD Sodium [Moles/Vol] 142 mmol/L Normal 135-144 [facility] Comment on above: Performed By: #### B MP, CBC #### [facility] [address] [place] [address] [employer]: Rodrick Jones MD Urea nitrogen [Mass/Vol] 40 mg/dL High 8-23 [facility] Comment on above: Performed By: #### B MP, CBC #### [facility] [address] [place] [address] [employer]: Rodrick Jones MD Basic Metabolic Panel w/ Ref artis to MGon 06-01-2022 Anion gap [Moles/Vol] 12 mmol/L 9 - 17 mmol/L [facility] Calcium [Mass/Vol] 8.6 mg/dL 8.6 - 10. 4 mg/dL [facility]BuyitBetter [facility] CAL - [employer] Chloride [Moles/Vol] 108 mmol/L High 98 - 10 7 mmol/L [facility] CO2 [Moles/Vol] 22 mmol/L 20 - 31 mmol/L [facility] Creatinine [Mass/Vol] 2.52 mg/dL High 0.70 - 1.20 mg/dL [facility] GFR/1.73 sq M.predicted MDRD (S/P/Bld) [Vol rate/Area] 28 mL/min/{1.73_m2} Low - PINF [facility] Comment on above: These results are not intended for use in patients <18 years of age. eGFR results are calculated without a race factor using the 2020 CKD-EPI equation. Careful clinical correlation is recommended, particularly when comparing to results calculated using previous equations. The CKD-EPI equation is less accurate in patients with extremes of muscle mass, extra-renal metabolism of creatine, excessive creatine ingestion, or following therapy that affects renal tubular secretion. Glucose [Mass/Vol] 74 mg/dL 70 - 99 mg/dL [facility] Interpretation and review of laboratory results Abnormal [facility] Potassium [Moles/Vol] 3.6 mmol/L Low 3.7 - 5.3 mmol/L [facility] Sodium [Moles/Vol] 142 mmol/L 135 - 144 mmol/L [facility] Urea nitrogen [Mass/Vol] 40 mg/dL High 8 - 23 mg/dL [facility] CBCon 06-01-2022 Erythrocyte distribution width (RBC) [Ratio] 14.3 % Normal 11.8-14.4 [facility] Comment on above: Performed By: #### B MP, CBC #### [facility] [address] [place] [address] [employer]: Rodrick Jones MD Hematocrit (Bld) [Volume fraction] 38.3 % Low 40.7-50.3 [facility] Comment on above: Performed By: #### B MP, CBC #### [facility] [address] [place] [address] [employer]: Rodrick Jones MD Hemoglobin (Bld) [Mass/Vol] 12.5 g/dL Low 13.0-17.0 [facility] Comment on above: Performed By: #### B MP, CBC #### [facility] [address] [place] [address] [employer]: Rodrick Jones MD MCH (RBC) [Entitic mass] 30.8 pg Normal 25.2-33.5 [facility] Comment on above: Performed By: #### B MP, CBC #### [facility] [address] [place] [address] [employer]: Rodrick Jones MD MCHC (RBC) [Mass/Vol] 32.6 g/dL Normal 28.4-34.8 [facility] Comment on above: Performed By: #### B MP, CBC #### [address] [address] [employer]: Rodrick Jones MD MCV (RBC) [Entitic vol] 94.3 fL Normal 82.6-102.9 [facility] Comment on above: Performed By: #### B MP, CBC #### [address] [address] [employer]: Rodrick Jones MD NRBC Automated 0.0 per 100 WBC Normal 0.0 [facility] Comment on above: Performed By: #### B MP, CBC #### [address] [address] [employer]: Rodrick Jones MD Platelet mean volume (Bld) [Entitic vol] 11.0 fL Normal 8.1-13.5 [facility] Comment on above: Performed By: #### B MP, CBC #### [address] [address] [employer]: Rodrick Jones MD Platelets (Bld) [#/Vol] 334 10*3/uL Normal 138-453 [facility] Comment on above: Performed By: #### B MP, CBC #### [address] [address] [employer]: Rodrick Jones MD RBC (Bld) [#/Vol] 4.06 10*6/uL Low 4.21-5.77 [facility] Comment on above: Performed By: #### B MP, CBC #### [address] [address] [employer]: Rodrick Jones MD WBC (Bld) [#/Vol] 9.8 10*3/uL Normal 3.5-11.3 [facility] Comment on above: Performed By: #### B MP, CBC #### [facility] [address] [place] [phone] [employer]: Rodrick Jones MD Hematocrit (Bld) [Volume fraction] 38.3 % Low 40.7 - 50.3 % [facility] Hemoglobin (Bld) [Mass/Vol] 12.5 g/dL Low 13.0 - 17.0 g/dL [facility] Interpretation and review of laboratory results Abnormal [facility] MCH (RBC) [Entitic mass] 30.8 pg 25.2 - 33.5 pg [facility] MCHC (RBC) [Mass/Vol] 32.6 g/dL 28.4 - 34.8 g/dL [facility] MCV (RBC) [Entitic vol] 94.3 fL 82.6 - 102.9 fL [facility] NRBC Automated 0.0 0.0 per 100 WBC [facility] Platelet distribution width (Bld) [Ratio] 14.3 % 11.8 - 14.4 % [facility] Platelet mean volume (Bld) [Entitic vol] 11.0 fL 8.1 - 13.5 fL [facility] Platelets (Bld) [#/Vol] 334 10*3/uL [facility] RBC (Bld) [#/Vol] 4.06 10*6/uL Low 4.21 - 5.7 7 m/uL [facility] WBC (Bld) [#/Vol] 9.8 10*3/uL [facility] CULTURE BLOODon 06-01-2022 Microscopic examination of blood, culture Culture Observations: Positive blood culture. Aerobic and Anaerobic bottle. BCID=Staph epidermidis. Isolate 1 Staphylococcus hominis Growth of Isolate 2 Staphylococcus epidermidis Growth of ORGANISM 1 Staphylococcus hominis ANTIBIOTIC M.I.C RX STATUS Benzylpenicillin <=0.3 R F Cefoxitin Screen Pos POS F Ciprofloxacin <=0.5 S F Clindamycin >=8 R F Erythromycin <=0.25 I F Gentamicin <=0.5 S F Inducible Clindamycin Resistance Neg NEG F Levofloxacin <=0.12 S F Linezolid 4 S F Oxacillin 2 R F Quinupristin/Dalfopr istin 0.5 S F Beta-Lactamase Pos POS F Rifampicin >=32 R F Tetracycline 2 S F Trimethoprim/Sulfame thoxazole <=10 S F Vancomycin 1 S F ORGANISM 2 Staphylococcus epidermidis ANTIBIOTIC M.I.C RX STATUS Beta-Lactamase Pos POS F Benzylpenicillin 0.06 R F Oxacillin <=0.25 S F Gentamicin <=0.5 S F Ciprofloxacin <=0.5 S F Levofloxacin 0.25 S F Inducible Clindamycin Resistance Neg NEG F Erythromycin >=8 R F Clindamycin <=0.25 S F Quinupristin/Dalfopr istin <=0.25 S F Linezolid 4 S F Vancomycin 2 S F Tetracycline 8 I F Rifampicin <=0.5 S F Trimethoprim/Sulfame thoxazole <=10 S F Normal [facility] Comment on above: Performed By: #### C #### [facility] [address] [place] [address] Dr. Kalie Rodas POC Glucose Fingerstickon Glucose [Mass/Vol] 171 mg/dL High 75 - 110 mg/dL [facility]ITALEktronSELECT [facility] Interpretation and review of laboratory results Abnormal [facility]ITALEktronMARIA PARHAM HEALTHEktronSELECT [facility]ICAL [facility] Glucose [Mass/Vol] 236 mg/dL High 75 - 110 mg/dL [facility]ITALEktronSELECT [facility] Interpretation and review of laboratory results Abnormal [facility] ExhbitMARIA PARHAM HEALTHEktronSELECT [facility]ICAL [facility] Glucose [Mass/Vol] 269 mg/dL High 75 - 110 mg/dL [facility] ExhbitSELECT [facility] [place] Interpretation and review of laboratory results Abnormal [facility]ITALEktronMARIA PARHAM HEALTHEktronSELECT [facility] Glucose [Mass/Vol] 203 mg/dL High 75 - 110 mg/dL [facility]ITALEktronSELECT [facility] Interpretation and review of laboratory results Abnormal [facility]ITALEktronMARIA PARHAM HEALTHEktronSELECT [facility] [place] Glucose [Mass/Vol] 94 mg/dL 75 - 110 mg/dL [facility]ITALEktronMARIA PARHAM HEALTHEktronSELECT [facility] Glucose [Mass/Vol] 144 mg/dL High 75 - 110 mg/dL [facility]ITALEktronSELECT [facility] [place] Interpretation and review of laboratory results Abnormal [facility]ITALEktronMARIA PARHAM [facility]ALTHAB[facility] Glucose [Mass/Vol] 58 mg/dL Low 75 - 110 mg/dL [facility] Interpretation and review of laboratory results Abnormal [facility] Glucose [Mass/Vol] 70 mg/dL Low 75 - 110 mg/dL [facility] Interpretation and review of laboratory results Abnormal [facility] Glucose [Mass/Vol] 89 mg/dL 75 - 110 mg/dL [facility] Glucose [Mass/Vol] 59 mg/dL Low 75 - 110 mg/dL [facility] Interpretation and review of laboratory results Abnormal [facility] Glucose [Mass/Vol] 50 mg/dL Low 75 - 110 mg/dL [facility] Comment on above: Critical Noted Interpretation and review of laboratory results Abnormal [facility] Glucose [Mass/Vol] 60 mg/dL Low 75 - 110 mg/dL [facility] Interpretation and review of laboratory results Abnormal [facility] Basic Metab w/rfx MGon 05-31 Anion gap [Moles/Vol] 14 mmol/L Normal 9-17 [facility] Comment on above: Performed By: #### I FX, URI, C4, PE, FKLLC, C3, PTHNCA #### [facility] [address] [place] [address] [employer]: Rodrick Jones MD Calcium [Mass/Vol] 8.4 mg/dL Low 8.6-10.4 [facility] Comment on above: Performed By: #### I FX, URI, C4, PE, FKLLC, C3, PTHNCA #### [facility] [address] [place] [address] [employer]: Rodrick Jones MD Chloride [Moles/Vol] 105 mmol/L Normal 98-107 [facility] Comment on above: Performed By: #### I FX, URI, C4, PE, FKLLC, C3, PTHNCA #### [facility] [address] [place] [address] [employer]: Rodrick Jones MD CO2 [Moles/Vol] 21 mmol/L Normal 20-31 [facility] Comment on above: Performed By: #### I FX, URI, C4, PE, FKLLC, C3, PTHNCA #### [address] [address] [employer]: Rodrick Jones MD Creatinine [Mass/Vol] 3.07 mg/dL High 0.70-1.20 [facility] Comment on above: Performed By: #### I FX, URI, C4, PE, FKLLC, C3, PTHNCA #### [address] [address] [employer]: Rodrick Jones MD GFR/1.73 sq M.predicted among non-blacks MDRD (S/P/Bld) [Vol rate/Area] 22 mL/min/{1.73_m2} Low >60 [facility] Comment on above: Result Comment: These results are not intended for use in patients <18 years of age. eGFR results are calculated without a race factor using the 2020 CKD-EPI equation. Careful clinical correlation is recommended, particularly when comparing to results calculated using previous equations. The CKD-EPI equation is less accurate in patients with extremes of muscle mass, extra-renal metabolism of creatine, excessive creatine ingestion, or following therapy that affects renal tubular secretion. Performed By: #### I FX, URI, C4, PE, FKLLC, C3, PTHNCA #### [address] [address] [employer]: Rodrick Jones MD Glucose [Mass/Vol] 183 mg/dL High 70-99 [facility] Comment on above: Performed By: #### I FX, URI, C4, PE, FKLLC, C3, PTHNCA #### [address] [address] [employer]: Rodrick Jones MD Potassium [Moles/Vol] 3.8 mmol/L Normal 3.7-5.3 [facility] Comment on above: Performed By: #### I FX, URI, C4, PE, FKLLC, C3, PTHNCA #### [facility] [address] [place], [place] [phone] [employer]: Rodrick Jones MD Sodium [Moles/Vol] 140 mmol/L Normal 135-144 [facility] Comment on above: Performed By: #### I FX, URI, C4, PE, FKLLC, C3, PTHNCA #### [facility] [place], [place] [phone] [employer]: Rodrick Jones MD Urea nitrogen [Mass/Vol] 54 mg/dL High 8-23 [facility] Comment on above: Performed By: #### I FX, URI, C4, PE, FKLLC, C3, PTHNCA #### [facility] [address] [place] [address] [phone] [employer]: Rodrick Jones MD Basic Metabolic Panel w/ Ref artis to MGon 05-31-2022 Anion gap [Moles/Vol] 14 mmol/L 9 - 17 mmol/L [facility] Calcium [Mass/Vol] 8.4 mg/dL Low 8.6 - 10. 4 mg/dL [facility] Chloride [Moles/Vol] 105 mmol/L 98 - 10 7 mmol/L [facility] CO2 [Moles/Vol] 21 mmol/L 20 - 31 mmol/L [facility] Creatinine [Mass/Vol] 3.07 mg/dL High 0.70 - 1.20 mg/dL [facility] GFR/1.73 sq M.predicted MDRD (S/P/Bld) [Vol rate/Area] 22 mL/min/{1.73_m2} Low - PINF [facility] Comment on above: These results are not intended for use in patients <18 years of age. eGFR results are calculated without a race factor using the 2020 CKD-EPI equation. Careful clinical correlation is recommended, particularly when comparing to results calculated using previous equations. The CKD-EPI equation is less accurate in patients with extremes of muscle mass, extra-renal metabolism of creatine, excessive creatine ingestion, or following therapy that affects renal tubular secretion. Glucose [Mass/Vol] 183 mg/dL High 70 - 99 mg/dL [facility] Interpretation and review of laboratory results Abnormal [facility] Potassium [Moles/Vol] 3.8 mmol/L 3.7 - 5.3 mmol/L [facility] Sodium [Moles/Vol] 140 mmol/L 135 - 144 mmol/L [facility] Urea nitrogen [Mass/Vol] 54 mg/dL High 8 - 23 mg/dL [facility] CBCon 05-31-2022 Erythrocyte distribution width (RBC) [Ratio] 14.2 % Normal 11.8-14.4 [facility] Comment on above: Performed By: #### I FX, URI, C4, PE, FKLLC, C3, PTHNCA #### [facility] [address] [place] [address] [phone] [employer]: Rodrick Jones MD Hematocrit (Bld) [Volume fraction] 38.1 % Low 40.7-50.3 [facility] Comment on above: Performed By: #### I FX, URI, C4, PE, FKLLC, C3, PTHNCA #### [facility] [address] [place] [address] [employer]: Rodrick Jones MD Hemoglobin (Bld) [Mass/Vol] 12.5 g/dL Low 13.0-17.0 [facility] Comment on above: Performed By: #### I FX, URI, C4, PE, FKLLC, C3, PTHNCA #### [address] [address] [employer]: Rodrick Jones MD MCH (RBC) [Entitic mass] 30.6 pg Normal 25.2-33.5 [facility] Comment on above: Performed By: #### I FX, URI, C4, PE, FKLLC, C3, PTHNCA #### [address] [address] [employer]: Rodrick Jones MD MCHC (RBC) [Mass/Vol] 32.8 g/dL Normal 28.4-34.8 [facility] Comment on above: Performed By: #### I FX, URI, C4, PE, FKLLC, C3, PTHNCA #### [place] [address] [employer]: Rodrick Jones MD MCV (RBC) [Entitic vol] 93.4 fL Normal 82.6-102.9 [facility] Comment on above: Performed By: #### I FX, URI, C4, PE, FKLLC, C3, PTHNCA #### [place] [address] [employer]: Rodrick Jones MD NRBC Automated 0.0 per 100 WBC Normal 0.0 [facility] Comment on above: Performed By: #### I FX, URI, C4, PE, FKLLC, C3, PTHNCA #### [place] [address] [employer]: Rodrick Jones MD Platelet mean volume (Bld) [Entitic vol] 10.2 fL Normal 8.1-13.5 [facility] Comment on above: Performed By: #### I FX, URI, C4, PE, FKLLC, C3, PTHNCA #### [place] [address] [employer]: Rodrick Jones MD Platelets (Bld) [#/Vol] 227 10*3/uL Normal 138-453 [facility] Comment on above: Performed By: #### I FX, URI, C4, PE, FKLLC, C3, PTHNCA #### [facility] [address] [place], [place] [phone] [employer]: Rodrick Jones MD RBC (Bld) [#/Vol] 4.08 10*6/uL Low 4.21-5.77 [facility] Comment on above: Performed By: #### I FX, URI, C4, PE, FKLLC, C3, PTHNCA #### [facility] [address] [place], [place] [phone] [employer]: Rodrick Jones MD WBC (Bld) [#/Vol] 7.9 10*3/uL Normal 3.5-11.3 [facility] Comment on above: Performed By: #### I FX, URI, C4, PE, FKLLC, C3, PTHNCA #### [facility] [place], [place] [phone] [employer]: Rodrick Jones MD Hematocrit (Bld) [Volume fraction] 38.1 % Low 40.7 - 50.3 % [facility] Hemoglobin (Bld) [Mass/Vol] 12.5 g/dL Low 13.0 - 17.0 g/dL [facility] Interpretation and review of laboratory results Abnormal [facility] MCH (RBC) [Entitic mass] 30.6 pg 25.2 - 33.5 pg [facility] MCHC (RBC) [Mass/Vol] 32.8 g/dL 28.4 - 34.8 g/dL [facility] MCV (RBC) [Entitic vol] 93.4 fL 82.6 - 102.9 fL [facility] NRBC Automated 0.0 0.0 per 100 WBC [facility] Platelet distribution width (Bld) [Ratio] 14.2 % 11.8 - 14.4 % [facility] Platelet mean volume (Bld) [Entitic vol] 10.2 fL 8.1 - 13.5 fL [facility] Platelets (Bld) [#/Vol] 227 10*3/uL [facility] RBC (Bld) [#/Vol] 4.08 10*6/uL Low 4.21 - 5.7 7 m/uL [facility] WBC (Bld) [#/Vol] 7.9 10*3/uL [facility] EKG 12 LeadOrdered By: Unkno wn Result on 05-31-2022 Atrial Rate 82 BPM [facility] P-R Interval 186 ms [facility] Q-T Interval 396 ms [facility] QRS Duration 108 ms [facility] QTc Calculation (Bazett) 462 ms [facility] R [place] -155 degrees [facility] T [place] -172 degrees [facility] Ventricular Rate 82 BPM [facility] EKG 12 Leadon 05-31-2022 Normal sinus rhythm Right superior axis deviation T wave abnormality, consider inferior ischemia Abnormal ECG No previous ECGs available [facility] STV MUSE Result, Unknown Provider - 05/31/2022 Normal sinus rhythm Right superior axis deviation T wave abnormality, consider inferior ischemia Abnormal ECG No previous ECGs available [facility] Work Phone: Electrophoresis Protein, Ser umon 05-31-2022 Albumin % 51 % 45 - 65 % [facility] Albumin [Mass/Vol] 3.4 g/dL 3.2 - 5.2 g/dL [facility] Alpha 1 % 4 % 3 - 6 % [facility] Alpha 1 globulin Elph [Mass/Vol] 0.3 g/dL 0.1 - 0.4 g/dL [facility] Alpha 2 % 16 % High 6 - 13 % [facility] Alpha 2 globulin Elph [Mass/Vol] 1.1 g/dL High 0.5 - 0.9 g/dL [facility] Beta globulin Elph [Mass/Vol] 0.9 g/dL 0.5 - 1.1 g/dL [facility] Beta Percent 14 % 11 - 19 % [facility] Gamma Globulin % 15 % 9 - 20 % [facility] Gamma globulin Elph [Mass/Vol] 1 g/dL 0.5 - 1.5 g/dL [facility] Interpretation and review of laboratory results Abnormal [facility] Pathologist Cyto stain Nom (Cvx/Vag) [ID] ELECTRONICALLY SIGNED. KUSUM VILLAFANA M.D. [facility] Protein [Mass/Vol] 6.7 g/dL 6.4 - 8.3 g/dL [facility] Protein Electrophoresis, Serum ELEVATED ALPHA 2 GLOBULINS. MAY BE OBSERVED IN A VARIETY OF CONDITIONS ASSOCIATED WITH ACUTE TISSUE DAMAGE/NECROSIS AND/OR ACUTE INFECTION/INFLAMMATI ON, AND ALSO NEPHROTIC DISEASE. [facility] Comment on above: IMMUNOFIXATION IS NE GATIVE FOR MONOCLONAL IMMUNOGLOBULIN. Total Prot. Sum 6.7 g/dL 6.3 - 8.2 g/dL [facility] Total Prot. Sum,% 100 % 98 - 102 % [facility] Hemoglobin A1Con 05-31-2022 Glucose [Mass/Vol] 160 mg/dL Normal [facility] Comment on above: Result Comment: The ADA and AACC recommend providing the estimated average glucose result to permit better patient understanding of their HBA1c result. Performed By: #### B MP, CBC #### [facility] [address] [place] [address] [employer]: Rodrick Jones MD HbA1c (Bld) [Mass fraction] 7.2 % High 4.0-6.0 [facility] Comment on above: Performed By: #### B MP, CBC #### [facility] [address] [place] [address] [employer] [place]: Rodrick Jones MD Average glucose Estimated from glycated hemoglobin (Bld) [Mass/Vol] 160 mg/dL [facility] Comment on above: The ADA and AACC rec ommend providing the estimated average glucose result to permit better patient understanding of their HBA1c result. HbA1c (Bld) [Mass fraction] 7.2 % High 4.0 - 6.0 % [facility] Interpretation and review of laboratory results Abnormal [facility] Immunofixation serum profile on 05-31-2022 Pathologist Cyto stain Nom (Cvx/Vag) [ID] ELECTRONICALLY SIGNED. KUSUM VILLAFANA M.D. [facility] Serum IFX Interp IMMUNOFIXATION IS NEGATIVE FOR MONOCLONAL IMMUNOGLOBULIN. [facility] Immunofixation,Bloodon 05-31 IFX - Interpret. IMMUNOFIXATION IS NEGATIVE FOR MONOCLONAL IMMUNOGLOBULIN. Normal [facility] [place] [facility] Comment on above: Performed By: #### B MP, CBC #### [facility] [address] [place] [address] [employer] [place]: Rodrick Jones MD No Panel Informationon 05-31 Interpretation and review of laboratory results Abnormal [facility] Glucose Fingerstickon Glucose [Mass/Vol] 63 mg/dL Low 75 - 110 mg/dL [facility] Interpretation and review of laboratory results Abnormal [facility] Glucose [Mass/Vol] 81 mg/dL 75 - 110 mg/dL [facility] Glucose [Mass/Vol] 68 mg/dL Low 75 - 110 mg/dL [facility] Glucose [Mass/Vol] 135 mg/dL High 75 - 110 mg/dL [facility] Glucose [Mass/Vol] 57 mg/dL Low 75 - 110 mg/dL [facility] Comment on above: Critical Noted Interpretation and review of laboratory results Abnormal [facility] Glucose [Mass/Vol] 75 mg/dL 75 - 110 mg/dL [facility] Glucose [Mass/Vol] 218 mg/dL High 75 - 110 mg/dL [facility] Interpretation and review of laboratory results Abnormal [facility] Ex[facility] Glucose [Mass/Vol] 238 mg/dL High 75 - 110 mg/dL [facility] Interpretation and review of laboratory results Abnormal [facility] Ex[facility]bit[facility] Glucose [Mass/Vol] 169 mg/dL High 75 - 110 mg/dL [facility] Interpretation and review of laboratory results Abnormal [facility] Prot. Electroph, Blon 2022 Pathologist Review: ELECTRONICALLY SIGNED. KUSUM VILLAFANA M.D. Normal [facility] [place] [facility] Comment on above: Performed By: #### B MP, CBC #### [address] [address] [employer] [place]: Rodrick Jones MD Prot. Elect-Interp ELEVATED ALPHA 2 GLOBULINS. MAY BE OBSERVED IN A VARIETY OF CONDITIONS [facility] Comment on above: Result Comment: ASSO CIATED WITH ACUTE TISSUE DAMAGE/NECROSIS AND/OR ACUTE INFECTION/INFLAMMATION, AND ALSO NEPHROTIC DISEASE. IMMUNOFIXATION IS NEGATIVE FOR MONOCLONAL IMMUNOGLOBULIN. Performed By: #### B MP, CBC #### [address] [address] [employer]: Rodrick Jones MD CBCon 7 Erythrocyte distribution width (RBC) [Ratio] 14.2 % Normal 11.8-14.4 [facility] [place] [facility] Comment on above: Performed By: #### B MP, CBC #### [address] [address] [employer]: Rodrick Jones MD Hematocrit (Bld) [Volume fraction] 41.1 % Normal 40.7-50.3 [facility] [place] [facility] Comment on above: Performed By: #### B MP, CBC #### [facility] [address] [place] [address] [employer]: Rodrick Jones MD Hemoglobin (Bld) [Mass/Vol] 13.2 g/dL Normal 13.0-17.0 [facility] [place] [facility] Comment on above: Performed By: #### B MP, CBC #### [facility] [address] [place] [address] [employer]: Rodrick Jones MD MCH (RBC) [Entitic mass] 30.6 pg Normal 25.2-33.5 [facility] [place] [facility] Comment on above: Performed By: #### B MP, CBC #### [address] [address] [employer]: Rodrick Jones MD MCHC (RBC) [Mass/Vol] 32.1 g/dL Normal 28.4-34.8 [facility] Comment on above: Performed By: #### B MP, CBC #### [address] [address] [employer]: Rodrick Jones MD MCV (RBC) [Entitic vol] 95.1 fL Normal 82.6-102.9 [facility] [place] [facility] Comment on above: Performed By: #### B MP, CBC #### [address] [address] [employer]: Rodrick Jones MD NRBC Automated 0.0 per 100 WBC Normal 0.0 [facility] [place] [facility] Comment on above: Performed By: #### B MP, CBC #### [address] [address] [employer] [place]: Rodrick Jones MD Platelet mean volume (Bld) [Entitic vol] 10.2 fL Normal 8.1-13.5 [facility] [place] [facility] Comment on above: Performed By: #### B MP, CBC #### [address] [address] [employer]: Rodrick Jones MD Platelets (Bld) [#/Vol] 206 10*3/uL Normal 138-453 [facility] [place] [facility] Comment on above: Performed By: #### B MP, CBC #### [address] [address] [employer]: Rodrick Jones MD RBC (Bld) [#/Vol] 4.32 10*6/uL Normal 4.21-5.77 [facility] [place] [facility] Comment on above: Performed By: #### B MP, CBC #### [address] [address] [place] [address] [employer]: Rodrick Jones MD WBC (Bld) [#/Vol] 8.3 10*3/uL Normal 3.5-11.3 [facility] [place] [facility] Comment on above: Performed By: #### B MP, CBC #### [facility] [address] [place], [place] [id number] [employer]: Rodrick Jones MD Hematocrit (Bld) [Volume fraction] 41.1 % 40.7 - 50.3 % [facility] Hemoglobin (Bld) [Mass/Vol] 13.2 g/dL 13.0 - 17.0 g/dL [facility] MCH (RBC) [Entitic mass] 30.6 pg 25.2 - 33.5 pg [facility] MCHC (RBC) [Mass/Vol] 32.1 g/dL 28.4 - 34.8 g/dL [facility] MCV (RBC) [Entitic vol] 95.1 fL 82.6 - 102.9 fL [facility] NRBC Automated 0.0 0.0 per 100 WBC [facility] Platelet distribution width (Bld) [Ratio] 14.2 % 11.8 - 14.4 % [facility] Platelet mean volume (Bld) [Entitic vol] 10.2 fL 8.1 - 13.5 fL [facility] Platelets (Bld) [#/Vol] 206 10*3/uL [facility] RBC (Bld) [#/Vol] 4.32 10*6/uL 4.21 - 5.7 7 m/uL [facility] WBC (Bld) [#/Vol] 8.3 10*3/uL [facility] Comp Metabolic Pr/rfx MGon 0 - Albumin [Mass/Vol] 3.0 g/dL Low 3.5-5.2 [facility] [place] [facility] Comment on above: Performed By: #### B MP, CBC #### [facility] [address] [place] [address] [employer] [place]: Rodrick Jones MD Albumin/Glob Ratio 0.8 Low 1.0-2.5 [facility] [place] [facility] Comment on above: Performed By: #### B MP, CBC #### [address] [address] [employer] [place]: Rodrick Jones MD Alkaline Phos 97 U/L Normal 40-129 [facility] [place] [facility] Comment on above: Performed By: #### B MP, CBC #### [address] [address] [employer]: Rodrick Jones MD ALT [Catalytic activity/Vol] 19 U/L Normal 5-41 [facility] [place] [facility] Comment on above: Performed By: #### B MP, CBC #### [address] [address] [employer]: Rodrick Jones MD Anion gap [Moles/Vol] 14 mmol/L Normal 9-17 [facility] Comment on above: Performed By: #### B MP, CBC #### [address] [address] [employer]: Rodrick Jones MD AST [Catalytic activity/Vol] 24 U/L Normal <40 [facility] [place] [facility] Comment on above: Performed By: #### B MP, CBC #### [address] [address] [employer]: Rodrick Jones MD Bilirubin [Mass/Vol] 0.3 mg/dL Normal 0.3-1.2 [facility] Comment on above: Performed By: #### B MP, CBC #### [address] [address] [employer] [place]: Rodrick Jones MD Calcium [Mass/Vol] 8.6 mg/dL Normal 8.6-10.4 [facility] [place] [facility] Comment on above: Performed By: #### B MP, CBC #### [facility] [address] [place] [address] [employer] [place]: Rodrick Jones MD Chloride [Moles/Vol] 109 mmol/L High 98-107 [facility] Comment on above: Performed By: #### B MP, CBC #### [facility] [address] [place] [address] [employer] [place]: Rodrick Jones MD CO2 [Moles/Vol] 20 mmol/L Normal 20-31 [facility] [place] [facility] Comment on above: Performed By: #### B MP, CBC #### [facility] [place] [address] [employer] [place]: Rodrick Jones MD Creatinine [Mass/Vol] 4.53 mg/dL High 0.70-1.20 [facility] Comment on above: Performed By: #### B MP, CBC #### [facility] [address] [place] [address] [employer]: Rodrick Jones MD GFR/1.73 sq M.predicted among non-blacks MDRD (S/P/Bld) [Vol rate/Area] 14 mL/min/{1.73_m2} Low >60 [facility] [place] [facility] Comment on above: Result Comment: These results are not intended for use in patients <18 years of age. eGFR results are calculated without a race factor using the 2020 CKD-EPI equation. Careful clinical correlation is recommended, particularly when comparing to results calculated using previous equations. The CKD-EPI equation is less accurate in patients with extremes of muscle mass, extra-renal metabolism of creatine, excessive creatine ingestion, or following therapy that affects renal tubular secretion. Performed By: #### B MP, CBC #### [facility] [address] [place] [address] [employer]: Rodrick Jones MD Glucose [Mass/Vol] 189 mg/dL High 70-99 [facility] [place] [facility] Comment on above: Performed By: #### B MP, CBC #### [facility] [address] [place] [address] [employer]: Rodrick Jones MD Potassium [Moles/Vol] 4.3 mmol/L Normal 3.7-5.3 [facility] Comment on above: Performed By: #### B MP, CBC #### [facility] [address] [place] [address] [employer]: Rodrick Jones MD Protein [Mass/Vol] 6.6 g/dL Normal 6.4-8.3 [facility] [place] [facility] Comment on above: Performed By: #### B MP, CBC #### [facility] [address] [place] [address] [employer]: Rodrick Jones MD Sodium [Moles/Vol] 143 mmol/L Normal 135-144 [facility] [place] [facility] Comment on above: Performed By: #### B MP, CBC #### [facility] [address] [place] [address] [employer]: Rodrick Jones MD Urea nitrogen [Mass/Vol] 71 mg/dL High 8-23 [facility] [place] [facility] Comment on above: Performed By: #### B MP, CBC #### [facility] [address] [place] [address] [employer]: Rodrick Jones MD Comprehensive Metabolic Pane l w/ Reflex to MGon 05-30-2022 Albumin [Mass/Vol] 3 g/dL Low 3.5 - 5.2 g/dL [facility] Albumin/Globulin [Mass ratio] 0.8 {ratio} Low 1.0 - 2.5 [facility] ALP [Catalytic activity/Vol] 97 U/L 40 - 129 U/L [facility] ALT [Catalytic activity/Vol] 19 U/L 5 - 41 U/L [facility] Anion gap [Moles/Vol] 14 mmol/L 9 - 17 mmol/L [facility] AST [Catalytic activity/Vol] 24 U/L NINF - 40 U/L [facility] Bilirubin [Mass/Vol] 0.3 mg/dL 0.3 - 1 .2 mg/dL [facility] Calcium [Mass/Vol] 8.6 mg/dL 8.6 - 10. 4 mg/dL [facility] Chloride [Moles/Vol] 109 mmol/L High 98 - 10 7 mmol/L [facility] CO2 [Moles/Vol] 20 mmol/L 20 - 31 mmol/L [facility] Creatinine [Mass/Vol] 4.53 mg/dL High 0.70 - 1.20 mg/dL [facility] GFR/1.73 sq M.predicted MDRD (S/P/Bld) [Vol rate/Area] 14 mL/min/{1.73_m2} Low - PINF [facility] Comment on above: These results are not intended for use in patients <18 years of age. eGFR results are calculated without a race factor using the 2020 CKD-EPI equation. Careful clinical correlation is recommended, particularly when comparing to results calculated using previous equations. The CKD-EPI equation is less accurate in patients with extremes of muscle mass, extra-renal metabolism of creatine, excessive creatine ingestion, or following therapy that affects renal tubular secretion. Glucose [Mass/Vol] 189 mg/dL High 70 - 99 mg/dL [facility] Interpretation and review of laboratory results Abnormal [facility] Potassium [Moles/Vol] 4.3 mmol/L 3.7 - 5.3 mmol/L [facility] Protein [Mass/Vol] 6.6 g/dL 6.4 - 8.3 g/dL [facility] Sodium [Moles/Vol] 143 mmol/L 135 - 144 mmol/L [facility] Urea nitrogen [Mass/Vol] 71 mg/dL High 8 - 23 mg/dL [facility] Electrolyte Panelon 05-30-19 23 Anion gap [Moles/Vol] 13 mmol/L 9 - 17 mmol/L [facility] Chloride [Moles/Vol] 107 mmol/L 98 - 10 7 mmol/L [facility] CO2 [Moles/Vol] 21 mmol/L 20 - 31 mmol/L [facility] Potassium [Moles/Vol] 3.9 mmol/L 3.7 - 5.3 mmol/L [facility] Sodium [Moles/Vol] 141 mmol/L 135 - 144 mmol/L [facility] Anion gap [Moles/Vol] 16 mmol/L 9 - 17 mmol/L [facility] Chloride [Moles/Vol] 107 mmol/L 98 - 10 7 mmol/L [facility] CO2 [Moles/Vol] 20 mmol/L 20 - 31 mmol/L [facility] Interpretation and review of laboratory results Abnormal [facility] Potassium [Moles/Vol] 3.6 mmol/L Low 3.7 - 5.3 mmol/L [facility] Sodium [Moles/Vol] 143 mmol/L 135 - 144 mmol/L [facility] Electrolyteson 05-30-2022 Anion gap [Moles/Vol] 13 mmol/L Normal 9-17 [facility] Comment on above: Performed By: #### B MP, CBC #### [facility] [address] [place] [address] [employer] [place]: Rodrick Jones MD Chloride [Moles/Vol] 107 mmol/L Normal 98-107 [facility] Comment on above: Performed By: #### B MP, CBC #### [facility] [address] [place] [address] [employer]: Rodrick Jones MD CO2 [Moles/Vol] 21 mmol/L Normal 20-31 [facility] [place] [facility] Comment on above: Performed By: #### B MP, CBC #### [facility] [address] [place] [address] [employer]: Rodrick Jones MD Potassium [Moles/Vol] 3.9 mmol/L Normal 3.7-5.3 [facility] Comment on above: Performed By: #### B MP, CBC #### [facility] [address] [place] [address] [employer]: Rodrick Jones MD Sodium [Moles/Vol] 141 mmol/L Normal 135-144 [facility] [place] [facility] Comment on above: Performed By: #### B MP, CBC #### [facility] [address] [place] [address] [employer]: Rodrick Jones MD Anion gap [Moles/Vol] 16 mmol/L Normal 9-17 [facility] Comment on above: Performed By: #### B MP, CBC #### [facility] [address] [place] [address] [employer]: Rodrick Jones MD Chloride [Moles/Vol] 107 mmol/L Normal 98-107 [facility] Comment on above: Performed By: #### B MP, CBC #### [facility] [address] [place] [address] [employer]: Rodrick Jones MD CO2 [Moles/Vol] 20 mmol/L Normal 20-31 [facility] [place] [facility] Comment on above: Performed By: #### B MP, CBC #### [facility] [address] [place] [address] [employer]: Rodrick Jones MD Potassium [Moles/Vol] 3.6 mmol/L Low 3.7-5.3 [facility] Comment on above: Performed By: #### B MP, CBC #### [facility] [address] [place] [address] [employer]: Rodrick Jones MD Sodium [Moles/Vol] 143 mmol/L Normal 135-144 [facility] [place] [facility] Comment on above: Performed By: #### B MP, CBC #### [facility] [address] [place] [address] [employer]: Rodrick Jones MD Hemoglobin A1Con 05-30-2022 Glucose [Mass/Vol] 160 mg/dL Normal [facility] [place] [facility] Comment on above: Result Comment: The ADA and AACC recommend providing the estimated average glucose result to permit better patient understanding of their HBA1c result. Performed By: #### C RP, RENP, CBC, MG #### [facility] [address] [place], [place] [id number] [employer] [place]: Rodrick Jones MD HbA1c (Bld) [Mass fraction] 7.2 % High 4.0-6.0 [facility] [place] [facility] Comment on above: Performed By: #### C RP, RENP, CBC, MG #### [facility] [place], [place] [phone] [employer] [place]: Rodrick Jones MD Average glucose Estimated from glycated hemoglobin (Bld) [Mass/Vol] 160 mg/dL [facility] [employer] [facility] Comment on above: The ADA and AACC rec ommend providing the estimated average glucose result to permit better patient understanding of their HBA1c result. HbA1c (Bld) [Mass fraction] 7.2 % High 4.0 - 6.0 % [facility] [employer] [facility] Interpretation and review of laboratory results Abnormal [facility] [employer] [facility] Magnesiumon 05-30-2022 Magnesium [Mass/Vol] 1.9 mg/dL Normal 1.6-2.6 [facility] Comment on above: Performed By: #### B MP, CBC #### [facility] [address] [place] [phone] [employer] [place]: Rodrick Jones MD Magnesium [Mass/Vol] 1.9 mg/dL 1.6 - 2 .6 mg/dL [facility] [employer] [facility] No Panel Informationon 05-30 [facility] [employer] [facility] POC Glucose Fingerstickon Glucose [Mass/Vol] 197 mg/dL High 75 - 110 mg/dL [facility] [employer] [facility] Interpretation and review of laboratory results Abnormal [facility] [employer] [facility] Glucose [Mass/Vol] 189 mg/dL High 75 - 110 mg/dL [facility] [employer] [facility] Interpretation and review of laboratory results Abnormal [facility] [employer] [facility] Glucose [Mass/Vol] 146 mg/dL High 75 - 110 mg/dL [facility] Interpretation and review of laboratory results Abnormal [facility] Prot. Electroph, Blon 2022 Albumin [Mass/Vol] 3.4 g/dL Normal 3.2-5.2 [facility] [place] [facility] Comment on above: Performed By: #### B MP, CBC #### [facility] [place] [address] [employer] [place]: Rodrick Jones MD Albumin, % 51 % Normal 45-65 [facility] [place] [facility] Comment on above: Performed By: #### B MP, CBC #### [facility] [address] [place] [address] [employer] [place]: Rodrick Jones MD Kszmo-3-bzeiwzgjn 0.3 g/dL Normal 0.1-0.4 [facility] Comment on above: Performed By: #### B MP, CBC #### [facility] [address] [place] [address] [employer]: Rodrick Jones MD Qecbr-2-wyrlqvmbs,% 4 % Normal 3-6 [facility] [place] [facility] Comment on above: Performed By: #### B MP, CBC #### [facility] [address] [place] [address] [employer] [place]: Rodrcik Jones MD Owzsn-4-eofebijkb 1.1 g/dL High 0.5-0.9 [facility] Comment on above: Performed By: #### B MP, CBC #### [facility] [address] [place] [address] [employer] [place]: Rodrick Jones MD Gokxy-2-mnkspuzuz,% 16 % High 6-13 [facility] [place] [facility] Comment on above: Performed By: #### B MP, CBC #### [facility] [address] [place] [address] [employer]: Rodrick Jones MD Beta-globulins 0.9 g/dL Normal 0.5-1.1 [facility] [place] [facility] Comment on above: Performed By: #### B MP, CBC #### [address] [address] [employer]: Rodrick Jones MD Beta-globulins,% 14 % Normal 11-19 [facility] Comment on above: Performed By: #### B MP, CBC #### [address] [address] [employer]: Rodrick Jones MD Gamma-globulins 1.0 g/dL Normal 0.5-1.5 [facility] [place] [facility] Comment on above: Performed By: #### B MP, CBC #### [address] [address] [employer]: Rodrick Jones MD Gamma-globulins,% 15 % Normal 9-20 [facility] Comment on above: Performed By: #### B MP, CBC #### [address] [address] [employer]: Rodrick Jones MD Total Prot. Sum 6.7 g/dL Normal 6.3-8.2 [facility] [place] [facility] Comment on above: Performed By: #### B MP, CBC #### [address] [address] [employer]: Rodrick Jones MD Total Prot. Sum,% 100 % Normal 98-102 [facility] Comment on above: Performed By: #### B MP, CBC #### [address] [address] [employer]: Rodrick Jones MD CULTURE URINEon 05-29-2022 CULTURE URINE Culture Observations: METHICILLIN RESISTANT STAPH EPIDERMIDIS ISOLATED. PLEASE FOLLOW APPROPRIATE ISOLATION PROCEDURES. Isolate 1 Staphylococcus epidermidis >100,000 cfu/mL of ORGANISM 1 Staphylococcus epidermidis ANTIBIOTIC M.I.C RX STATUS Beta-Lactamase Neg NEG F Cefoxitin Screen Neg NEG F Benzylpenicillin <=0.03 R F Oxacillin >=4 R F Ciprofloxacin <=0.5 S F Levofloxacin <=0.12 S F Inducible Clindamycin Resistance Neg NEG F Quinupristin/Dalfopr istin <=0.25 S F Linezolid 1 S F Vancomycin 1 S F Tetracycline <=1 S F Nitrofurantoin <=16 S F Rifampicin <=0.5 S F Trimethoprim/Sulfame thoxazole <=10 S F Normal [facility] Comment on above: Performed By: #### C BC #### [facility] [address] [place], [place] [address] Dr. Kalie Rodas Comp Metabolic Pr/rfx MGon 0 05-29-2022 GFR/1.73 sq M.predicted among non-blacks MDRD (S/P/Bld) [Vol rate/Area] 10 mL/min/{1.73_m2} Low >60 [facility] [place] [facility] Comment on above: Result Comment: These results are not intended for use in patients <18 years of age. eGFR results are calculated without a race factor using the 2020 CKD-EPI equation. Careful clinical correlation is recommended, particularly when comparing to results calculated using previous equations. The CKD-EPI equation is less accurate in patients with extremes of muscle mass, extra-renal metabolism of creatine, excessive creatine ingestion, or following therapy that affects renal tubular secretion. Performed By: #### B CECY, CBC #### [facility] [address] [place] [phone] [employer]: Rodrick Jones MD Albumin [Mass/Vol] 3.1 g/dL Low 3.5-5.2 [facility] [place] [facility] Comment on above: Performed By: #### B CECY, CBC #### [facility] [address] [place], [place] [phone] [employer]: Rodrick Jones MD Albumin/Glob Ratio 0.8 Low 1.0-2.5 [facility] [place] [facility] Comment on above: Performed By: #### B CECY, CBC #### [facility] [address] [place], [place] [phone] [employer]: Rodrick Jones MD Alkaline Phos 104 U/L Normal 40-129 [facility] [place] [facility] Comment on above: Performed By: #### B MP, CBC #### [address] [address] [employer]: Rodrick Jones MD ALT [Catalytic activity/Vol] 21 U/L Normal 5-41 [facility] [place] [facility] Comment on above: Performed By: #### B MP, CBC #### [address] [address] [employer]: Rodrick Jones MD Anion gap [Moles/Vol] 20 mmol/L High 9-17 [facility] Comment on above: Performed By: #### B MP, CBC #### [address] [address] [employer]: Rodrick Jones MD AST [Catalytic activity/Vol] 32 U/L Normal <40 [facility] [place] [facility] Comment on above: Performed By: #### B MP, CBC #### [address] [address] [employer]: Rodrick Jones MD Bilirubin [Mass/Vol] 0.4 mg/dL Normal 0.3-1.2 [facility] Comment on above: Performed By: #### B MP, CBC #### [address] [address] [employer]: Rodrick Jones MD Calcium [Mass/Vol] 9.1 mg/dL Normal 8.6-10.4 [facility] [place] [facility] Comment on above: Performed By: #### B MP, CBC #### [address] [address] [employer]: Rodrick Jones MD Chloride [Moles/Vol] 105 mmol/L Normal 98-107 [facility] Comment on above: Performed By: #### B MP, CBC #### [address] [address] [employer]: Rodrick Jones MD CO2 [Moles/Vol] 14 mmol/L Low 20-31 [facility] [place] [facility] Comment on above: Performed By: #### B MP, CBC #### [facility] [address] [place] [address] [employer]: Rodrick Jones MD Glucose [Mass/Vol] 187 mg/dL High 70-99 [facility] [place] [facility] Comment on above: Performed By: #### B MP, CBC #### [facility] [address] [place] [address] [employer]: Rodrick Jones MD Potassium [Moles/Vol] 4.6 mmol/L Normal 3.7-5.3 [facility] Comment on above: Performed By: #### B MP, CBC #### [address] [address] [employer]: Rodrick Jones MD Protein [Mass/Vol] 7.1 g/dL Normal 6.4-8.3 [facility] [place] [facility] Comment on above: Performed By: #### B MP, CBC #### [address] [address] [employer]: Rodrick Jones MD Sodium [Moles/Vol] 139 mmol/L Normal 135-144 [facility] [place] [facility] Comment on above: Performed By: #### B MP, CBC #### [facility] [address] [place] [address] [employer]: Rodrick Jones MD Urea nitrogen [Mass/Vol] 78 mg/dL High 8-23 [facility] [place] [facility] Comment on above: Performed By: #### B MP, CBC #### [facility] [address] [place] [address] [employer]: Rodrick Jones MD Creatinine [Mass/Vol] 5.79 mg/dL Critically high 0.70-1.20 [facility] [employer] Comment on above: Previous Alert Value Reported Result Comment: Prev ious Alert Value Reported Performed By: #### B MP, CBC #### [facility] [address] [id number] [employer]: Rodrick Jones MD Comprehensive Metabolic Pane l w/ Reflex to MGon 05-29-2022 Albumin [Mass/Vol] 3.1 g/dL Low 3.5 - 5.2 g/dL [facility] Albumin/Globulin [Mass ratio] 0.8 {ratio} Low 1.0 - 2.5 [facility] [employer] ALP [Catalytic activity/Vol] 104 U/L 40 - 129 U/L [facility] ALT [Catalytic activity/Vol] 21 U/L 5 - 41 U/L [facility] Anion gap [Moles/Vol] 20 mmol/L High 9 - 17 mmol/L [facility] AST [Catalytic activity/Vol] 32 U/L NINF - 40 U/L [facility] Bilirubin [Mass/Vol] 0.4 mg/dL 0.3 - 1 .2 mg/dL [facility] Calcium [Mass/Vol] 9.1 mg/dL 8.6 - 10. 4 mg/dL [facility] Chloride [Moles/Vol] 105 mmol/L 98 - 10 7 mmol/L [facility] CO2 [Moles/Vol] 14 mmol/L Low 20 - 31 mmol/L [facility] GFR/1.73 sq M.predicted MDRD (S/P/Bld) [Vol rate/Area] 10 mL/min/{1.73_m2} Low - PINF [facility] Comment on above: These results are not intended for use in patients <18 years of age. eGFR results are calculated without a race factor using the 2020 CKD-EPI equation. Careful clinical correlation is recommended, particularly when comparing to results calculated using previous equations. The CKD-EPI equation is less accurate in patients with extremes of muscle mass, extra-renal metabolism of creatine, excessive creatine ingestion, or following therapy that affects renal tubular secretion. Glucose [Mass/Vol] 187 mg/dL High 70 - 99 mg/dL [facility] Interpretation and review of laboratory results Abnormal [facility] Potassium [Moles/Vol] 4.6 mmol/L 3.7 - 5.3 mmol/L [facility] Protein [Mass/Vol] 7.1 g/dL 6.4 - 8.3 g/dL [facility] Sodium [Moles/Vol] 139 mmol/L 135 - 144 mmol/L [facility] Urea nitrogen [Mass/Vol] 78 mg/dL High 8 - 23 mg/dL [facility] Cult,Urineon 05-29-2022 Cult,Urine Specimen Description .BLADDER URINE FROM CYSTOSCOPY Culture NO SIGNIFICANT GROWTH Report Status FINAL 05/29/2022 [facility] Comment on above: Performed By: #### B MP, CBC #### [facility] [address] [place], [place] [id number] [employer]: Rodrick Jones MD Cult,Urine Specimen Description .CLEAN CATCH URINE Culture NO SIGNIFICANT GROWTH Report Status FINAL 05/29/2022 [facility] Comment on above: Performed By: #### B MP, CBC #### [email or web address] [address] [place], [place] [id number] [employer]: Rodrick Jones MD Culture, Urineon 05-29-2022 Microorganism identified Cx Nom (Unsp spec) NO SIGNIFICANT GROWTH [facility] Specimen Description .BLADDER URINE FROM CYSTOSCOPY [facility] Microorganism identified Cx Nom (Unsp spec) NO SIGNIFICANT GROWTH [facility] Specimen Description .CLEAN CATCH URINE [facility] Electrolyte Panelon 05-29-19 Anion gap [Moles/Vol] 15 mmol/L 9 - 17 mmol/L [facility] Chloride [Moles/Vol] 106 mmol/L 98 - 10 7 mmol/L [facility] CO2 [Moles/Vol] 19 mmol/L Low 20 - 31 mmol/L [facility] Interpretation and review of laboratory results Abnormal [facility] Potassium [Moles/Vol] 4.0 mmol/L 3.7 - 5.3 mmol/L [facility] Sodium [Moles/Vol] 140 mmol/L 135 - 144 mmol/L [facility] Electrolyteson 05-29-2022 Anion gap [Moles/Vol] 15 mmol/L Normal 9-17 [facility] Comment on above: Performed By: #### C RP, RENP, CBC, MG #### [facility] [address] [place] [address] [employer]: Rodrick Jones MD Chloride [Moles/Vol] 106 mmol/L Normal 98-107 [facility] Comment on above: Performed By: #### C RP, RENP, CBC, MG #### [facility] [address] [place] [address] [employer]: Rodrick Jones MD CO2 [Moles/Vol] 19 mmol/L Low 20-31 [facility] [place] [facility] Comment on above: Performed By: #### C RP, RENP, CBC, MG #### [facility] [address] [place] [address] [employer]: Rodrick Jones MD Potassium [Moles/Vol] 4.0 mmol/L Normal 3.7-5.3 [facility] Comment on above: Performed By: #### C RP, RENP, CBC, MG #### [facility] [address] [place] [address] [employer]: Rodrick Jones MD Sodium [Moles/Vol] 140 mmol/L Normal 135-144 [facility] [place] [facility] Comment on above: Performed By: #### C RP, RENP, CBC, MG #### [facility] [address] [place] [address] [employer]: Rodrick Jones MD [place] + Lambdaon [address] [place] Lt Chains 7.89 mg/dL High 0.37-1.94 [facility] Comment on above: Performed By: #### B MP, CBC #### [facility] [address] [place], [place] [id number] [employer]: Rodrick Jones MD [place]/Lambda Rat 1.63 Normal 0.26-1.65 [facility] Comment on above: Performed By: #### B MP, CBC #### [facility] [place], [place] 1908208 [employer]: Rodrick Jones MD [place]/Lambda Quantitative Fr ee Light Chains, Serumon 05-29-2022 [address] [place]/Lambda Ratio 1.63 0.26 - 1.65 [facility] Immunoglobulin light chains.kappa.free (S) [Mass/Vol] 7.89 mg/dL High 0.37 - 1.94 mg/dL [facility] Immunoglobulin light chains.lambda.free [Mass/Vol] 4.85 mg/dL High 0.57 - 2.63 mg/dL [facility] Interpretation and review of laboratory results Abnormal [facility] Magnesiumon 05-29-2022 Magnesium [Mass/Vol] 1.8 mg/dL Normal 1.6-2.6 [facility] Comment on above: Performed By: #### B MP, CBC #### [facility] [phone] [employer]: Rodrick Jones MD Magnesium [Mass/Vol] 1.8 mg/dL 1.6 - 2 .6 mg/dL [facility] No Panel Informationon 05-29 [facility] POC Glucose Fingerstickon Glucose [Mass/Vol] 290 mg/dL High 75 - 110 mg/dL [facility] Interpretation and review of laboratory results Abnormal [facility] Glucose [Mass/Vol] 307 mg/dL High 75 - 110 mg/dL [facility] Interpretation and review of laboratory results Abnormal [facility] Glucose [Mass/Vol] 187 mg/dL High 75 - 110 mg/dL [facility] Interpretation and review of laboratory results Abnormal [facility] Glucose [Mass/Vol] 165 mg/dL High 75 - 110 mg/dL [facility] Interpretation and review of laboratory results Abnormal [facility] Phosphoruson 05-29-2022 Interpretation and review of laboratory results Abnormal [facility] Phosphate [Mass/Vol] 5.6 mg/dL High 2.5 - 4 .5 mg/dL [facility] Phosphorus, Inorg.on 023 Phosphorus, Inorg. 5.6 mg/dL High 2.5-4.5 [facility] [place] [facility] Comment on above: Performed By: #### B MP, CBC #### [facility] [address] [place], [place] [id number] [employer]: Rodrick Jones MD Prot. Electroph, Blon 2022 Protein [Mass/Vol] 6.7 g/dL Normal 6.4-8.3 [facility] [place] [facility] Comment on above: Performed By: #### B MP, CBC #### [email or web address] [address] [place], [place] [phone] [employer]: Rodrick Jones MD US RETROPERITONEAL COMPLETEo n 05-29-2022 US RETROPERITONEAL COMPLETE EXAMINATION: RETROPERITONEAL ULTRASOUND OF THE KIDNEYS AND URINARY BLADDER 05/28/2022 COMPARISON: None HISTORY: ORDERING SYSTEM PROVIDED HISTORY: Acute renal failure TECHNOLOGIST PROVIDED HISTORY: Acute renal failure FINDINGS: Kidneys: The right kidney measures 11 x 5.8 x 5.5 cm in length and the left kidney measures 14.1 x 6.8 x 8.6 cm in length. Kidneys demonstrate normal cortical echogenicity. No evidence of hydronephrosis or intrarenal stones. Bladder: Bladder cannot be well evaluated due to presence of Carballo catheter IMPRESSION: No stone, mass or hydronephrosis within the kidneys. Kidneys have normal size. Interpreted by: Franklin Barker MD Signed by: Franklin Barker MD 05/28/22 Final result Normal [facility] [place] [facility] XR CHEST PORTABLEon 05-29-19 XR CHEST PORTABLE EXAMINATION: ONE XRAY VIEW OF THE CHEST 05/29/2022 6:03 am COMPARISON: None. HISTORY: ORDERING SYSTEM PROVIDED HISTORY: sob TECHNOLOGIST PROVIDED HISTORY: sob 62-year-old male with shortness of breath FINDINGS: Portable upright view of the chest alarm security or surveillance monitor leads overlie the chest. Mild cardiomegaly. Mild pulmonary vascular congestion. No pneumothorax. Trachea midline. No confluent airspace consolidation or pleural effusions. Probable calcified granulomata projecting over the left lower lung zone. No acute osseous abnormality. IMPRESSION: 1. Mild cardiomegaly. Mild pulmonary vascular congestion. 2. Old granulomatous disease. 3. No confluent airspace consolidation. Interpreted by: Jacob Garcia MD Signed by: Jacob Garcia MD 05/29/22 Final result Normal [facility] [place] [facility] 1. Mild cardiomegaly. Mild pulmonary vascular congestion. 2. Old granulomatous disease. 3. No confluent airspace consolidation. [facility]PN RIS CONSOLIDATED EXAMINATION: ONE XRAY VIEW OF THE CHEST 05/29/2022 6:03 am COMPARISON: None. HISTORY: ORDERING SYSTEM PROVIDED HISTORY: sob TECHNOLOGIST PROVIDED HISTORY: sob 62-year-old male with shortness of breath FINDINGS: Portable upright view of the chest alarm security or surveillance monitor leads overlie the chest. Mild cardiomegaly. Mild pulmonary vascular congestion. No pneumothorax. Trachea midline. No confluent airspace consolidation or pleural effusions. Probable calcified granulomata projecting over the left lower lung zone. No acute osseous abnormality. [facility] RIS CONSOLIDATED Jacob Garcia MD - 05/29/2022 EXAMINATION: ONE XRAY VIEW OF THE CHEST 05/29/2022 6:03 am COMPARISON: None. HISTORY: ORDERING SYSTEM PROVIDED HISTORY: sob TECHNOLOGIST PROVIDED HISTORY: sob 62-year-old male with shortness of breath FINDINGS: Portable upright view of the chest alarm security or surveillance monitor leads overlie the chest. Mild cardiomegaly. Mild pulmonary vascular congestion. No pneumothorax. Trachea midline. No confluent airspace consolidation or pleural effusions. Probable calcified granulomata projecting over the left lower lung zone. No acute osseous abnormality. IMPRESSION: 1. Mild cardiomegaly. Mild pulmonary vascular congestion. 2. Old granulomatous disease. 3. No confluent airspace consolidation. [facility] [employer] Phone: Radiology Study observation (narrative) [employer] Phone: XR CHEST PORTABLEOrdered By: Jacob Garcia on 05-29-2022 [facility] Work Phone: BLOOD CULTURE ID PANELon Bottle: Anaerobic Normal [facility] Comment on above: Performed By: #### C VDTBH #### [facility] [address] [place] [address] Dr. Kalie Rodas Site: Right AC Normal [facility] Comment on above: Performed By: #### C VDTBH #### [facility] [address] [place] [address] Dr. Kalie Rodas Nael/Casie Resist. Gene Not Applicable Normal NOT DETECTED [facility] Comment on above: Performed By: #### C VDTBH #### [facility] [address] [place] [address] Dr. Kalie Rodas Brain Natri. Peptideon 05-28 Natriuretic peptide B (Bld) [Mass/Vol] 2234 pg/mL High <300 [facility] [place] [facility] Comment on above: Result Comment: An age-independent cutoff point of 300 pg/ml has a 98% negative predictive value excluding acute heart failure. Performed By: #### B MP, CBC #### [facility] [address] [place] [phone] [employer]: Rodrick Jones MD Brain Natriuretic Peptideon 05-28-2022 Natriuretic peptide B (Bld) [Mass/Vol] 2234 pg/mL High NINF - 300 pg/mL [facility] Comment on above: An age-independent cutoff point of 300 pg/ml has a 98% negative predictive value excluding acute heart failure. C3on 05-28-2022 C3 185 mg/dL High 90-180 [facility] [place] [facility] Comment on above: Performed By: #### I FX, URI, C4, PE, FKLLC, C3, PTHNCA #### [facility] [place], [place] [id number] [employer]: Rodrick Jones MD C3 Complementon 05-28-2022 Complement C3 185 mg/dL High 90 - 180 mg/dL [facility] C4on 05-28-2022 C4 62 mg/dL High 10-40 [facility] [place] [facility] Comment on above: Performed By: #### I FX, URI, C4, PE, FKLLC, C3, PTHNCA #### [facility] [address] [place] [address] [id number] [employer]: Rodrick Jones MD C4 Complementon 05-28-2022 Complement C4 62 mg/dL High 10 - 40 mg/dL [facility] CBCon 05-28-2022 Erythrocyte distribution width (RBC) [Ratio] 14.4 % Normal 11.8-14.4 [facility] [place] [facility] Comment on above: Performed By: #### C RP, RENP, CBC, MG #### [facility] [address] [place] [address] [phone] [employer]: Rodrick Jones MD Hematocrit (Bld) [Volume fraction] 48.9 % Normal 40.7-50.3 [facility] [place] [facility] Comment on above: Performed By: #### C RP, RENP, CBC, MG #### [facility] [address] [place] [address] [employer]: Rodrick Jones MD Hemoglobin (Bld) [Mass/Vol] 14.6 g/dL Normal 13.0-17.0 [facility] [place] [facility] Comment on above: Performed By: #### C RP, RENP, CBC, MG #### [facility] [address] [place] [address] [employer]: Rodrick Jones MD MCH (RBC) [Entitic mass] 30.9 pg Normal 25.2-33.5 [facility] [place] [facility] Comment on above: Performed By: #### C RP, RENP, CBC, MG #### [facility] [address] [place] [address] [employer]: Rodrick Jones MD MCHC (RBC) [Mass/Vol] 29.9 g/dL Normal 28.4-34.8 [facility] Comment on above: Performed By: #### C RP, RENP, CBC, MG #### [address] [address] [employer]: Rodrick Jones MD MCV (RBC) [Entitic vol] 103.4 fL High 82.6-102.9 [facility] [place] [facility] Comment on above: Performed By: #### C RP, RENP, CBC, MG #### [address] [address] [employer]: Rodrick Jones MD NRBC Automated 0.0 per 100 WBC Normal 0.0 [facility] [place] [facility] Comment on above: Performed By: #### C RP, RENP, CBC, MG #### [place] [address] [employer]: Rodrick Jones MD Platelet mean volume (Bld) [Entitic vol] 9.8 fL Normal 8.1-13.5 [facility] [place] [facility] Comment on above: Performed By: #### C RP, RENP, CBC, MG #### [address] [address] [employer]: Rodrick Jones MD Platelets (Bld) [#/Vol] 118 10*3/uL Low 138-453 [facility] [place] [facility] Comment on above: Performed By: #### C RP, RENP, CBC, MG #### [facility] [address] [place] [address] [employer]: Rodrick Jones MD RBC (Bld) [#/Vol] 4.73 10*6/uL Normal 4.21-5.77 [facility] [place] [facility] Comment on above: Performed By: #### C RP, RENP, CBC, MG #### [address] [address] [employer]: Rodrick Jones MD WBC (Bld) [#/Vol] 7.2 10*3/uL Normal 3.5-11.3 [facility] [place] [facility] Comment on above: Performed By: #### C RP, RENP, CBC, MG #### [facility] [place] [address] [employer]: Rodrick Jones MD Hematocrit (Bld) [Volume fraction] 48.9 % 40.7 - 50.3 % [facility] Hemoglobin (Bld) [Mass/Vol] 14.6 g/dL 13.0 - 17.0 g/dL [facility] Interpretation and review of laboratory results Abnormal [facility] MCH (RBC) [Entitic mass] 30.9 pg 25.2 - 33.5 pg [facility] MCHC (RBC) [Mass/Vol] 29.9 g/dL 28.4 - 34.8 g/dL [facility] MCV (RBC) [Entitic vol] 103.4 fL High 82.6 - 102.9 fL [facility] NRBC Automated 0.0 0.0 per 100 WBC [facility] Platelet distribution width (Bld) [Ratio] 14.4 % 11.8 - 14.4 % [facility] Platelet mean volume (Bld) [Entitic vol] 9.8 fL 8.1 - 13.5 fL [facility] Platelets (Bld) [#/Vol] 118 10*3/uL Low [facility] RBC (Bld) [#/Vol] 4.73 10*6/uL 4.21 - 5.7 7 m/uL [facility] WBC (Bld) [#/Vol] 7.2 10*3/uL [facility] CBC AUTO DIFFon 05-28-2022 BASO # 0.1 103/ul Normal 0.0-0.1 [facility] Comment on above: Performed By: #### M ALBCRL #### [facility] [address] [place], [place] [address] Dr. Kalie Rodas Basophils/100 WBC (Bld) 0.7 % Normal 0.2-2.0 [facility] Comment on above: Performed By: #### M ALBCRL #### [facility] [address] [place] [address] Dr. Kalie Rodas EO # 0.1 103/ul Normal 0.0-0.7 [facility] Comment on above: Performed By: #### M ALBCRL #### [facility] [address] [place] [address] Dr. Kalie Rodas Eosinophils/100 WBC (Bld) 0.5 % Critically low 0.9-7.0 [facility] Comment on above: Performed By: #### M ALBCRL #### [facility] [address] [place] [address] Dr. Kalie Rodas Erythrocyte distribution width (RBC) [Ratio] 14.0 % Normal 11.0-15.0 [facility] Comment on above: Performed By: #### M ALBCRL #### [facility] [address] [place] [address] Dr. Kalie Rodas Hematocrit (Bld) [Volume fraction] 38.1 % Critically low 42.0-54.0 [facility] Comment on above: Performed By: #### M ALBCRL #### [facility] [address] [place] [address] Dr. Kalie Rodas Hemoglobin (Bld) [Mass/Vol] 12.9 g/dL Critically low 14.0-18.0 [facility] Comment on above: Performed By: #### M ALBCRL #### [facility] [address] [place] [address] Dr. Kalie Rodas IG # 0.06 10e3/ul Critically high 0.00-0.03 [facility] Comment on above: Performed By: #### M ALBCRL #### [facility] [address] [place] [address] Dr. Kalie Rodas IG % 0.6 % Critically high 0.0-0.5 [facility] Comment on above: Performed By: #### M ALBCRL #### [facility] [address] [place] [address] Dr. Kalie Rodas LYMPH # 1.5 103/ul Normal 1.2-3.8 [facility] Comment on above: Performed By: #### M ALBCRL #### [facility] [address] [place] [address] Dr. Kalie Rodas Lymphocytes/100 WBC (Bld) 14.4 % Critically low 20.5-60.0 [facility] Comment on above: Performed By: #### M ALBCRL #### [facility] [address] [place] [address] Dr. Kalie Rodas MANUAL DIFF REQ NO Normal [facility] Comment on above: Performed By: #### M ALBCRL #### [facility] [address] [place] [address] Dr. Kalie Rodas MCH (RBC) [Entitic mass] 30.4 pg Normal 25.9-34.0 [facility] Comment on above: Performed By: #### M ALBCRL #### [facility] [address] [place] [address] Dr. Kalie Rodas MCHC (RBC) [Mass/Vol] 33.9 g/dL Normal 29.9-35.2 [facility] Comment on above: Performed By: #### M ALBCRL #### [facility] [address] [place] [address] Dr. Kalie Rodas MCV (RBC) [Entitic vol] 89.9 fL Normal 80.0-94.0 [facility] Comment on above: Performed By: #### M ALBCRL #### [facility] [address] [place] [address] Dr. Kalie Rodas MONO # 1.5 103/ul Critically high 0.3-0.8 [facility] Comment on above: Performed By: #### M ALBCRL #### [facility] [address] [place] [address] Dr. Kalie Rodas Monocytes/100 WBC (Bld) 13.6 % Critically high 1.7-12.0 [facility] Comment on above: Performed By: #### M ALBCRL #### [facility] [address] [place] [address] Dr. Kalie Rodas NEUT # 7.5 103/ul Critically high 1.4-6.5 [facility] Comment on above: Performed By: #### M ALBCRL #### [facility] [address] [place] [address] Dr. Kalie Rodas Neutrophils/100 WBC (Bld) 70.2 % Normal 43.0-75.[address] [facility] Comment on above: Performed By: #### M ALBCRL #### [facility] [address] [place] [address] Dr. Kalie Rodas Platelet mean volume (Bld) [Entitic vol] 9.8 fL Normal 9.5-13.[address] [facility] Comment on above: Performed By: #### M ALBCRL #### [facility] [address] [place] [address] Dr. Kalie Rodas PLT 205 103/ul Normal 150-[address] [facility] Comment on above: Performed By: #### M ALBCRL #### [facility] [address] [place] [address] Dr. Kalie Rodas RBC 4.24 106/ul Critically low 4.70-6.10 [facility] Comment on above: Performed By: #### M ALBCRL #### [facility] [address] [place] [address] Dr. Kalie Rodas WBC 10.6 103/ul Normal 4.0-11.[address] [facility] Comment on above: Performed By: #### M ALBCRL #### [facility] [address] [place] [address] Dr. Kalie Rodas BASO # 0.1 103/ul Normal 0.0-0.[address] [facility] Comment on above: Performed By: #### C VDTBH #### [facility] [address] [place] [address] Dr. Kalie Rodas Basophils/100 WBC (Bld) 0.5 % Normal 0.2-2.[address] [facility] Comment on above: Performed By: #### C VDTBH #### [facility] [address] [place] [address] Dr. Kalie Rodas EO # 0.0 103/ul Normal 0.0-0.7 [facility] Comment on above: Performed By: #### C VDTBH #### [facility] [address] [place] [address] Dr. Kalie Rodas Eosinophils/100 WBC (Bld) 0.2 % Critically low 0.9-7.0 [facility] Comment on above: Performed By: #### C VDTBH #### [facility] [address] [place] [address] Dr. Kalie Rodas Erythrocyte distribution width (RBC) [Ratio] 14.0 % Normal 11.0-15.0 [facility] Comment on above: Performed By: #### C VDTBH #### [facility] [address] [place] [address] Dr. Kalie Rodas Hematocrit (Bld) [Volume fraction] 38.1 % Critically low 42.0-54.0 [facility] Comment on above: Performed By: #### C VDTBH #### [facility] [address] [place] [address] Dr. Kalie Rodas Hemoglobin (Bld) [Mass/Vol] 13.1 g/dL Critically low 14.0-18.0 [facility] Comment on above: Performed By: #### C VDTBH #### [facility] [address] [place] [address] Dr. Kalie Rodas IG # 0.04 10e3/ul Critically high 0.00-0.03 [facility] Comment on above: Performed By: #### C VDTBH #### [facility] [address] [place] [address] Dr. Kalie Rodas IG % 0.4 % Normal 0.0-0.[address] [facility] Comment on above: Performed By: #### C VDTBH #### [facility] [address] [place] [address] Dr. Kalie Rodas LYMPH # 1.6 103/ul Normal 1.2-3.[address] [facility] Comment on above: Performed By: #### C VDTBH #### [facility] [address] [address] [address] Kalie Rodas Lymphocytes/100 WBC (Bld) 14.5 % Critically low 20.5-60.[address] [facility] Comment on above: Performed By: #### C VDTBH #### [facility] [address] [place] [address] Dr. Kalie Rodas MANUAL DIFF REQ NO Normal [facility] Comment on above: Performed By: #### C VDTBH #### [facility] [address] [place] [address] Dr. Kalie Rodas MCH (RBC) [Entitic mass] 30.8 pg Normal 25.9-34.[address] [facility] Comment on above: Performed By: #### C VDTBH #### [facility] [address] [place] [address] Dr. Kalie Rodas MCHC (RBC) [Mass/Vol] 34.4 g/dL Normal 29.9-35.[address] [facility] Comment on above: Performed By: #### C VDTBH #### [facility] [address] [place] [address] Dr. Kalie Rodas MCV (RBC) [Entitic vol] 89.4 fL Normal 80.0-94.0 [facility] Comment on above: Performed By: #### C VDTBH #### [facility] [address] [place] [address] Dr. Kalie Rodas MONO # 1.4 103/ul Critically high 0.3-0.8 [facility] Comment on above: Performed By: #### C VDTBH #### [facility] [address] [place] [address] Dr. Kalie Rodas Monocytes/100 WBC (Bld) 12.8 % Critically high 1.7-12.[address] [facility] Comment on above: Performed By: #### C VDTBH #### [facility] [address] [place] [address] Dr. Kalie Rodas NEUT # 7.9 103/ul Critically high 1.4-6.5 [facility] Comment on above: Performed By: #### C VDTBH #### [facility] [address] [address] [address] Kalie Rodas Neutrophils/100 WBC (Bld) 71.6 % Normal 43.0-75.0 [facility] Comment on above: Performed By: #### C VDTBH #### [facility] [address] [address] [address] Kalie Rodas Platelet mean volume (Bld) [Entitic vol] 9.5 fL Normal 9.5-13.5 [facility] Comment on above: Performed By: #### C VDTBH #### [facility] [address] [address] [address] Kalie Rodas PLT 200 103/ul Normal 150-450 [facility] Comment on above: Performed By: #### C VDTBH #### [facility] [address] [place] [address] Dr. Kalie Rodas RBC 4.26 106/ul Critically low 4.70-6.10 [facility] Comment on above: Performed By: #### C VDTBH #### [facility] [address] [address] [address] Kalie Rodas WBC 11.1 103/ul Critically high 4.0-11.0 [facility] [place] [facility] Comment on above: Performed By: #### C VDTBH #### [facility] [address] [address] [address] Kalie Rodas Comp Metabolic Pr/rfx MGon 0 - Albumin [Mass/Vol] 2.8 g/dL Low 3.5-5.2 [facility] [place] [facility] Comment on above: Performed By: #### B MP, CBC #### [facility] [address] [place] [phone] [employer]: Rodrick Jones MD Albumin/Glob Ratio 0.6 Low 1.0-2.5 [facility] [place] [facility] Comment on above: Performed By: #### B MP, CBC #### [facility] [address] [place] [address] [employer]: Rodrick Jones MD Alkaline Phos 107 U/L Normal 40-129 [facility] [place] [facility] Comment on above: Result Comment: SPEC IMEN SLIGHTLY HEMOLYZED, RESULTS MAY BE ADVERSELY AFFECTED. Performed By: #### B MP, CBC #### [facility] [address] [place] [phone] [employer]: Rodrick Jones MD ALT [Catalytic activity/Vol] 23 U/L Normal 5-41 [facility] [place] [facility] Comment on above: Result Comment: SPEC IMEN SLIGHTLY HEMOLYZED, RESULTS MAY BE ADVERSELY AFFECTED. Performed By: #### B MP, CBC #### [facility] [address] [place] [address] [employer]: Rodrick Jones MD Anion gap [Moles/Vol] 19 mmol/L High 9-17 [facility] Comment on above: Performed By: #### B MP, CBC #### [address] [address] [employer]: Rodrick Jones MD AST [Catalytic activity/Vol] 44 U/L High <40 [facility] [place] [facility] Comment on above: Result Comment: SPEC IMEN SLIGHTLY HEMOLYZED, RESULTS MAY BE ADVERSELY AFFECTED. Performed By: #### B MP, CBC #### [facility] [address] [place] [phone] [employer]: Rodrick Jones MD Bilirubin [Mass/Vol] 0.5 mg/dL Normal 0.3-1.2 [facility] Comment on above: Performed By: #### B MP, CBC #### [facility] [address] [place] [address] [employer]: Rodrick Jones MD Calcium [Mass/Vol] 9.0 mg/dL Normal 8.6-10.4 [facility] [place] [facility] Comment on above: Performed By: #### B MP, CBC #### [facility] [address] [place] [address] [employer]: Rodrick Jones MD Chloride [Moles/Vol] 103 mmol/L Normal 98-107 [facility] Comment on above: Performed By: #### B MP, CBC #### [facility] [address] [place] [address] [employer]: Rodrick Jones MD CO2 [Moles/Vol] 9 mmol/L Critically low 20-31 [facility] [place] [facility] Comment on above: Performed By: #### B MP, CBC #### [facility] [address] [place] [address] [employer]: Rodrick Jones MD Creatinine [Mass/Vol] 7.05 mg/dL Critically high 0.70-1.20 [facility] [place] [facility] Comment on above: Performed By: #### B MP, CBC #### [address] [address] [employer]: Rodrick Jones MD GFR/1.73 sq M.predicted among non-blacks MDRD (S/P/Bld) [Vol rate/Area] 8 mL/min/{1.73_m2} Low >60 [facility] [place] [facility] Comment on above: Result Comment: These results are not intended for use in patients <18 years of age. eGFR results are calculated without a race factor using the 2020 CKD-EPI equation. Careful clinical correlation is recommended, particularly when comparing to results calculated using previous equations. The CKD-EPI equation is less accurate in patients with extremes of muscle mass, extra-renal metabolism of creatine, excessive creatine ingestion, or following therapy that affects renal tubular secretion. Performed By: #### B MP, CBC #### [facility] [address] [place] [address] [employer]: Rodrick Jones MD Glucose [Mass/Vol] 153 mg/dL High 70-99 [facility] [place] [facility] Comment on above: Performed By: #### B MP, CBC #### [facility] [address] [place] [address] [employer]: Rodrick Jones MD Potassium [Moles/Vol] 5.6 mmol/L High 3.7-5.3 [facility] Comment on above: Result Comment: SPEC IMEN SLIGHTLY HEMOLYZED, RESULTS MAY BE ADVERSELY AFFECTED. Performed By: #### B MP, CBC #### [facility] [place] [address] [employer]: Rodrick Jones MD Protein [Mass/Vol] 7.2 g/dL Normal 6.4-8.3 [facility] [place] [facility] Comment on above: Performed By: #### B MP, CBC #### [facility] [place] [address] [employer]: Rodrick Jones MD Sodium [Moles/Vol] 131 mmol/L Low 135-144 [facility] [place] [facility] Comment on above: Performed By: #### B MP, CBC #### [facility] [address] [place] [address] [employer]: Rodrick Jones MD Urea nitrogen [Mass/Vol] 85 mg/dL High 8-23 [facility] [place] [facility] Comment on above: Performed By: #### B MP, CBC #### [facility] [address] [place] [address] [employer]: Rodrick Jones MD Comprehensive Metabolic Pane l w/ Reflex to MGon 05-28-2022 Albumin [Mass/Vol] 2.8 g/dL Low 3.5 - 5.2 g/dL [facility] [employer] Albumin/Globulin [Mass ratio] 0.6 {ratio} Low 1.0 - 2.5 [facility] ALP [Catalytic activity/Vol] 107 U/L 40 - 129 U/L [facility] [employer] Comment on above: SPECIMEN SLIGHTLY HE MOLYZED, RESULTS MAY BE ADVERSELY AFFECTED. ALT [Catalytic activity/Vol] 23 U/L 5 - 41 U/L [facility] [employer] Comment on above: SPECIMEN SLIGHTLY HE MOLYZED, RESULTS MAY BE ADVERSELY AFFECTED. Anion gap [Moles/Vol] 19 mmol/L High 9 - 17 mmol/L [facility] AST [Catalytic activity/Vol] 44 U/L High NINF - 40 U/L [facility] Comment on above: SPECIMEN SLIGHTLY HE MOLYZED, RESULTS MAY BE ADVERSELY AFFECTED. Bilirubin [Mass/Vol] 0.5 mg/dL 0.3 - 1 .2 mg/dL [facility] Calcium [Mass/Vol] 9.0 mg/dL 8.6 - 10. 4 mg/dL [facility] Chloride [Moles/Vol] 103 mmol/L 98 - 10 7 mmol/L [facility] CO2 [Moles/Vol] 9 mmol/L Critically low 20 - 31 mmol/L [facility] Creatinine [Mass/Vol] 7.05 mg/dL Critically high 0.7 0 - 1.20 mg/dL [facility] GFR/1.73 sq M.predicted MDRD (S/P/Bld) [Vol rate/Area] 8 mL/min/{1.73_m2} Low - PINF [facility] Comment on above: These results are not intended for use in patients <18 years of age. eGFR results are calculated without a race factor using the 2020 CKD-EPI equation. Careful clinical correlation is recommended, particularly when comparing to results calculated using previous equations. The CKD-EPI equation is less accurate in patients with extremes of muscle mass, extra-renal metabolism of creatine, excessive creatine ingestion, or following therapy that affects renal tubular secretion. Glucose [Mass/Vol] 153 mg/dL High 70 - 99 mg/dL [facility] Potassium [Moles/Vol] 5.6 mmol/L High 3.7 - 5.3 mmol/L [facility] Comment on above: SPECIMEN SLIGHTLY HE MOLYZED, RESULTS MAY BE ADVERSELY AFFECTED. Protein [Mass/Vol] 7.2 g/dL 6.4 - 8.3 g/dL [facility] Sodium [Moles/Vol] 131 mmol/L Low 135 - 144 mmol/L [facility] Urea nitrogen [Mass/Vol] 85 mg/dL High 8 - 23 mg/dL [facility] Creatinine, urine, randomon 05-28-2022 Creatinine, Ur 82.7 mg/dL 39.0 - 259.0 mg/dL [facility] Creatinine,Random Uron 05-28 Creatinine [Mass/Vol] 82.7 mg/dL Normal 39.0-259.0 [facility] Comment on above: Performed By: #### C RP RENP, CBC, MG #### [facility] [address] [place] [address] [phone] [employer]: Rodrick Jones MD FLUORO FOR SURGICAL PROCEDUR ESon 05-28-2022 FLUORO FOR SURGICAL PROCEDURES Radiology exam is complete. No Radiologist dictation. Please follow up with ordering provider. Final result Normal [facility] Radiology exam is complete. No Radiologist dictation. Please follow up with ordering provider. MHPN RIS CONSOLIDATED [place] + Lambdaon 2022 Free Lambda Lt Chains 4.85 mg/dL High 0.57-2.63 [facility] Comment on above: Performed By: #### B CECY, CBC #### [facility] [address] [place] [address] [phone] [employer]: Rodrick Jones MD K (Potassium)on 05-28-2022 Potassium [Moles/Vol] 5.4 mmol/L High 3.7-5.3 [facility] Comment on above: Performed By: #### C RPCRESCENCIO, CBC, MG #### [facility] [address] [place] [address] [phone] [employer]: Rodrick Jones MD LACTATE/LACTIC ACIDon 2022 Lactate [Moles/Vol] 0.6 mmol/L Normal 0.4-1.9 [facility] Comment on above: Performed By: #### C MP, TSH #### [facility] [address] [address] [address] Kalie Rodas Lactate [Moles/Vol] 0.6 mmol/L Normal 0.4-1.9 [facility] Comment on above: Performed By: #### C MP, TSH #### [facility] [address] [place], [place] [address] Dr. Kalie Rodas Magnesiumon 05-28-2022 Magnesium [Mass/Vol] 1.9 mg/dL Normal 1.6-2.6 [facility] Comment on above: Performed By: #### B MP, CBC #### [email or web address] [address] [place], [place] [phone] [employer]: Rodrick Jones MD Magnesium [Mass/Vol] 1.9 mg/dL 1.6 - 2 .6 mg/dL [facility] No Panel Informationon 05-28 Interpretation and review of laboratory results Abnormal [facility] Interpretation and review of laboratory results Abnormal [facility] Osmolality, Urineon 05-28-19 23 Osmolality - Urine 317 mOsm/kg Normal 80-1300 [facility] [place] [facility] Comment on above: Performed By: #### C RP, RENP, CBC, MG #### [email or web address] [address] [place] [address] [employer]: Rodrick Jones MD Osmolality, urineon 05-28-19 23 Osmolality, Ur 317 [facility] Glucose Fingerstickon Glucose [Mass/Vol] 187 mg/dL High 75 - 110 mg/dL [facility] Interpretation and review of laboratory results Abnormal [facility] Glucose [Mass/Vol] 160 mg/dL High 75 - 110 mg/dL [facility] Interpretation and review of laboratory results Abnormal [facility] Glucose [Mass/Vol] 126 mg/dL High 75 - 110 mg/dL [facility] Interpretation and review of laboratory results Abnormal [facility] POINT OF CARE GLUCOSEon 05-12 Glucose [Mass/Vol] 118 mg/dL Critically high 74-106 [facility] Comment on above: Performed By: #### C MP, TSH #### [facility] [address] [address] [address] Kalie Rodas PROF 14(COMP METB)on 023 Albumin [Mass/Vol] 2.6 g/dL Critically low 3.4-5.0 [facility] Comment on above: Performed By: #### C VDTBH #### [facility] [address] [place] [address] Dr. Kalie Rodas Albumin/Globulin [Mass ratio] 0.6 {ratio} Normal [facility] Comment on above: Performed By: #### C VDTBH #### [facility] [address] [place] [address] Dr. Kalie Rodas ALP [Catalytic activity/Vol] 106 U/L Normal 46-116 [facility] Comment on above: Performed By: #### C VDTBH #### [facility] [address] [place] [address] Dr. Kalie Rodas ALT [Catalytic activity/Vol] 29 U/L Normal 16-63 [facility] Comment on above: Performed By: #### C VDTBH #### [facility] [address] [place] [address] Dr. Kalie Rodas Anion gap [Moles/Vol] 21.6 mmol/L Normal [facility] Comment on above: Performed By: #### C VDTBH #### [facility] [address] [place] [address] Dr. Kalie Rodas AST [Catalytic activity/Vol] 45 U/L Critically high 15-37 [facility] Comment on above: Performed By: #### C VDTBH #### [facility] [address] [place] [address] Dr. Kalie Rodas Bilirubin [Mass/Vol] 0.4 mg/dL Normal 0.2-1.0 [facility] Comment on above: Performed By: #### C VDTBH #### [facility] [address] [place] [address] Dr. Kalie Rodas Calcium [Mass/Vol] 8.5 mg/dL Normal 8.5-10.1 [facility] Comment on above: Performed By: #### C VDTBH #### [facility] [address] [place] [address] Dr. Kalie Rodas Chloride [Moles/Vol] 101 mmol/L Normal 98-107 [facility] Comment on above: Performed By: #### C VDTBH #### [facility] [address] [place] [address] Dr. Kalie Rodas CO2 [Moles/Vol] 15.3 mmol/L Critically low 21.0-32.0 [facility] Comment on above: Performed By: #### C VDTBH #### [facility] [address] [place] [address] Dr. Kalie Rodas Creatinine [Mass/Vol] 8.78 mg/dL Critically high 0.70-1.30 [facility] Comment on above: Performed By: #### C VDTBH #### [facility] [address] [place] [address] Dr. Kalie Rodas EGFR-AF PUERTO RICAN 8 mL/min/1.73m2 Critically low >=60 [facility] Comment on above: Performed By: #### C VDTBH #### [facility] [address] [place] [address] Dr. Kalie Rodas EGFR-NON AF PUERTO RICAN 6 mL/min/1.73m2 Critically low >=60 [facility] Comment on above: Performed By: #### C VDTBH #### [facility] [address] [place] [address] Dr. Kalie Rodas Globulin (S) [Mass/Vol] 4.2 g/dL Normal [facility] Comment on above: Performed By: #### C VDTBH #### [facility] [address] [place] [address] Dr. Kalie Rodas Glucose [Mass/Vol] 112 mg/dL Critically high 74-106 [facility] Comment on above: Performed By: #### C VDTBH #### [facility] [address] [place] [address] Dr. Kalie Rodas Potassium [Moles/Vol] 4.9 mmol/L Normal 3.5-5.1 [facility] Comment on above: Performed By: #### C VDTBH #### [facility] [address] [place] [address] Dr. Kalie Rodas Protein [Mass/Vol] 6.8 g/dL Normal 6.4-8.2 [facility] Comment on above: Performed By: #### C VDTBH #### [facility] [address] [place] [address] Dr. Kalie Rodas Sodium [Moles/Vol] 133 mmol/L Critically low 136-145 [facility] Comment on above: Performed By: #### C VDTBH #### [facility] [address] [place] [address] Dr. Kalie Rodas Urea nitrogen [Mass/Vol] 86.0 mg/dL Critically high 7.0-18.0 [facility] Comment on above: Performed By: #### C VDTBH #### [facility] [address] [place] [address] Dr. Kalie Rodas Urea nitrogen/Creatinine [Mass ratio] 9.8 mg/mg Normal [facility] Comment on above: Performed By: #### C VDTBH #### [facility] [address] [place] [address] Dr. Kalie Rodas Albumin [Mass/Vol] 2.7 g/dL Critically low 3.4-5.0 [facility] Comment on above: Performed By: #### C VDTBH #### [facility] [address] [place] [address] Dr. Kalie Rodas Albumin/Globulin [Mass ratio] 0.6 {ratio} Normal [facility] Comment on above: Performed By: #### C VDTBH #### [facility] [address] [place] [address] Dr. Kalie Rodas ALP [Catalytic activity/Vol] 100 U/L Normal 46-116 [facility] Comment on above: Performed By: #### C VDTBH #### [facility] [address] [place] [address] Dr. Kalie Rodas ALT [Catalytic activity/Vol] 30 U/L Normal 16-63 [facility] Comment on above: Performed By: #### C VDTBH #### [facility] [address] [place] [address] Dr. Kalie Rodas Anion gap [Moles/Vol] 21.1 mmol/L Normal [facility] Comment on above: Performed By: #### C VDTBH #### [facility] [address] [place] [address] Dr. Kalie Rodas AST [Catalytic activity/Vol] 46 U/L Critically high 15-37 [facility] Comment on above: Performed By: #### C VDTBH #### [facility] [address] [place] [address] Dr. Kalie Rodas Bilirubin [Mass/Vol] 0.4 mg/dL Normal 0.2-1.0 [facility] Comment on above: Performed By: #### C VDTBH #### [facility] [address] [place] [address] Dr. Kalie Rodas Calcium [Mass/Vol] 8.5 mg/dL Normal 8.5-10.1 [facility] Comment on above: Performed By: #### C VDTBH #### [facility] [address] [place] [address] Dr. Kalie Rodas Chloride [Moles/Vol] 103 mmol/L Normal 98-107 [facility] Comment on above: Performed By: #### C VDTBH #### [facility] [address] [place] [address] Dr. Kalie Rodas CO2 [Moles/Vol] 15.6 mmol/L Critically low 21.0-32.0 [facility] Comment on above: Performed By: #### C VDTBH #### [facility] [address] [place] [address] Dr. Kalie Rodas Creatinine [Mass/Vol] 8.52 mg/dL Critically high 0.70-1.30 [facility] Comment on above: Performed By: #### C VDTBH #### [facility] [address] [place] [address] Dr. Kalie Rodas EGFR-AF PUERTO RICAN 8 mL/min/1.73m2 Critically low >=60 [facility] Comment on above: Performed By: #### C VDTBH #### [facility] [address] [place] [address] Dr. Kalie Rodas EGFR-NON AF PUERTO RICAN 6 mL/min/1.73m2 Critically low >=60 [facility] Comment on above: Performed By: #### C VDTBH #### [facility] [address] [address] [address] Kalie Rodas Globulin (S) [Mass/Vol] 4.5 g/dL Normal [facility] Comment on above: Performed By: #### C VDTBH #### [facility] [address] [address] [address] Kalie Rodas Glucose [Mass/Vol] 98 mg/dL Normal 74-106 [facility] Comment on above: Performed By: #### C VDTBH #### [facility] [address] [place] [address] Dr. Kalie Rodas Potassium [Moles/Vol] 4.7 mmol/L Normal 3.5-5.1 [facility] Comment on above: Performed By: #### C VDTBH #### [facility] [address] [place] [address] Dr. Kalie Rodas Protein [Mass/Vol] 7.2 g/dL Normal 6.4-8.2 [facility] Comment on above: Performed By: #### C VDTBH #### [facility] [address] [place] [address] Dr. Kalie Rodas Sodium [Moles/Vol] 135 mmol/L Critically low 136-145 [facility] Comment on above: Performed By: #### C VDTBH #### [facility] [address] [place] [address] Dr. Kalie Rodas Urea nitrogen [Mass/Vol] 83.0 mg/dL Critically high 7.0-18.0 [facility] Comment on above: Performed By: #### C VDTBH #### [facility] [address] [place] [address] Dr. Kalie Rodas Urea nitrogen/Creatinine [Mass ratio] 9.7 mg/mg Normal [facility] Comment on above: Performed By: #### C VDTBH #### [facility] [id number] Kalie Rodas PTon 05-28-2022 INR Coag (PPP) [Relative time] 1.0 {INR} Normal [facility] Comment on above: Result Comment: Therapeutic Range: Moderate Anticoagulant Intensity: INR = 2.0-3.0 High Anticoagulant Intensity: INR = 2.5-3.5 Performed By: #### B MP, CBC #### [facility] [address] [place] [address] [phone] [employer]: Rodrick Jones MD PT Coag (PPP) [Time] 11.1 s Normal 9.1-12.3 [facility] Comment on above: Performed By: #### B MP, CBC #### [facility] [address] [place] [address] [phone] [employer]: Rodrick Jones MD PTH, Intacton 05-28-2022 PTH, Intact 152.9 pg/mL High 14.0-72.0 [facility] Comment on above: Result Comment: SAMP LES FROM PATIENTS ROUTINELY RECEIVING HIGH DOSE BIOTIN THERAPY MAY SHOW FALSELY DEPRESSED RESULTS. ADDITIONAL INFORMATION MAY BE REQUIRED FOR DIAGNOSIS. Performed By: #### B MP, CBC #### [facility] [address] [place] [address] [phone] [employer]: Rodrick Jones MD Interpretation and review of laboratory results Abnormal [facility] [employer] Parathyrin.intact [Mass/Vol] 152.9 pg/mL High 14.0 - 72.0 pg/mL [facility] Comment on above: SAMPLES FROM PATIENT S ROUTINELY RECEIVING HIGH DOSE BIOTIN THERAPY MAY SHOW FALSELY DEPRESSED RESULTS. ADDITIONAL INFORMATION MAY BE REQUIRED FOR DIAGNOSIS. [facility] [employer] Potassiumon 05-28-2022 Interpretation and review of laboratory results Abnormal [facility] [employer] Potassium [Moles/Vol] 5.4 mmol/L High 3.7 - 5.3 mmol/L [facility] [employer] [facility] Protein, urine, randomon Protein (U) [Mass/Vol] 67 mg/dL JAMILAH [employer] Comment on above: No normal range esta blished. Protein,Tot,Randall Uron 2022 Tot Prot. Conc. 67 mg/dL Normal [facility] Comment on above: Result Comment: No n ormal range established. Performed By: #### C RP, RENP, CBC, MG #### [facility] [address] [place], [place] [phone] [employer]: Rodrick Jones MD Protime-INRon 05-28-2022 INR Coag (PPP) [Relative time] 1.0 {INR} [facility] Comment on above: Therapeutic Range: Moderate Anticoagulant Intensity: INR = 2.0-3.0 High Anticoagulant Intensity: INR = 2.5-3.5 PT Coag (PPP) [Time] 11.1 s [facility] Sodium, Random Uron 05-28-19 Sodium (U) [Moles/Vol] 61 mmol/L Normal [facility] Comment on above: Result Comment: No n ormal range established. Performed By: #### C RP, RENP, CBC, MG #### [facility] [address] [place] [address] [phone] [employer]: Rodrick Jones MD Sodium, urine, randomon 05-12 Sodium (U) [Moles/Vol] 61 mmol/L [facility] Comment on above: No normal range esta blished. US RETROPERITONEAL COMPLETEo n 05-28-2022 No stone, mass or hydronephrosis within the kidneys. Kidneys have normal size. [facility] CONSOLIDATED EXAMINATION: RETROPERITONEAL ULTRASOUND OF THE KIDNEYS AND URINARY BLADDER 05/28/2022 COMPARISON: None HISTORY: ORDERING SYSTEM PROVIDED HISTORY: Acute renal failure TECHNOLOGIST PROVIDED HISTORY: Acute renal failure FINDINGS: Kidneys: The right kidney measures 11 x 5.8 x 5.5 cm in length and the left kidney measures 14.1 x 6.8 x 8.6 cm in length. Kidneys demonstrate normal cortical echogenicity. No evidence of hydronephrosis or intrarenal stones. Bladder: Bladder cannot be well evaluated due to presence of Carballo catheter [facility]IS CONSOLIDATED Franklin Barker MD - 05/28/2022 EXAMINATION: RETROPERITONEAL ULTRASOUND OF THE KIDNEYS AND URINARY BLADDER 05/28/2022 COMPARISON: None HISTORY: ORDERING SYSTEM PROVIDED HISTORY: Acute renal failure TECHNOLOGIST PROVIDED HISTORY: Acute renal failure FINDINGS: Kidneys: The right kidney measures 11 x 5.8 x 5.5 cm in length and the left kidney measures 14.1 x 6.8 x 8.6 cm in length. Kidneys demonstrate normal cortical echogenicity. No evidence of hydronephrosis or intrarenal stones. Bladder: Bladder cannot be well evaluated due to presence of Carballo catheter IMPRESSION: No stone, mass or hydronephrosis within the kidneys. Kidneys have normal size. [employer] Phone: Radiology Study observation (narrative) [employer] Phone: US RETROPERITONEAL COMPLETEO rdered By: Franklin Barker on 05-28-2022 [facility] [employer] Phone: Uric Acidon 05-28-2022 Urate [Mass/Vol] 7.8 mg/dL High 3.4-7.0 [facility] Comment on above: Performed By: #### I FX, URI, C4, PE, FKLLC, C3, PTHNCA #### [facility] [address] [place] [phone] [employer]: Rodrick Jones MD Urate [Mass/Vol] 7.8 mg/dL High 3.4 - 7.0 mg/dL [facility] [employer] Urinalysis w/ Microon 2022 Bilirubin, SemiQt,Ur Negative Normal NEG [facility] Comment on above: Performed By: #### C RP, RENP, CBC, MG #### [facility] [address] [place] [address] [phone] [employer]: Rodrick Jones MD Blood, Urine LARGE Abnormal NEG [facility] Comment on above: Performed By: #### C RP, RENP, CBC, MG #### [facility] [address] [place] [address] [phone] [employer]: Rodrick Jones MD Casts 2 TO 5 HYALINE Normal 0-8 [facility] Comment on above: Result Comment: Refe rence range defined for non-centrifuged specimen. Performed By: #### C RP, RENP, CBC, MG #### [address] [phone] [employer]: Rodrick Jones MD Clarity (U) Clear Normal CLEAR [facility] Comment on above: Performed By: #### C RP, RENP, CBC, MG #### [address] [phone] [employer]: Rodrick Jones MD Color (U) Yellow Normal YEL [facility] Comment on above: Performed By: #### C RP, RENP, CBC, MG #### [address] [phone] [employer]: Rodrick Jones MD Epithelial cells LM Ql (Urine sed) None Normal 0-5 [facility] Comment on above: Performed By: #### C RP, RENP, CBC, MG #### [facility] [employer] [address] [place] [address] [phone] [employer]: Rodrick Jones MD Glucose Ql (U) Negative Normal NEG [facility] Comment on above: Performed By: #### C RP, RENP, CBC, MG #### [facility] [employer] [address] [place] [address] [phone] [employer]: Rodrick Jones MD Ketones Ql (U) Negative Normal NEG [facility] Comment on above: Performed By: #### C RP, RENP, CBC, MG #### [facility] [address] [place] [address] [phone] [employer]: Rodrick Jones MD Leukocyte esterase Test strip Ql (U) TRACE Abnormal NEG [facility] Comment on above: Performed By: #### C RP, RENP, CBC, MG #### [facility] [address] [place] [address] [phone] [employer]: Rodrick Jones MD Nitrite,Ur Negative Normal NEG [facility] Comment on above: Performed By: #### C RP, RENP, CBC, MG #### [facility] [address] [place] [address] [phone] [employer]: Rodrick Jones MD PH,Ur 5.5 Normal 5.0-8.0 [facility] Comment on above: Performed By: #### C RP, RENP, CBC, MG #### [facility] [address] [place] [address] [phone] [employer]: Rodrick Jones MD Protein Ql (U) 2+ Abnormal NEG [facility] Comment on above: Performed By: #### C RP, RENP, CBC, MG #### [facility] [employer] [address] [place] [phone] [employer]: Rodrick Jones MD Spec. Grabill,Ur 1.011 Normal 1.005-1.030 [facility] Comment on above: Performed By: #### C RP, RENP, CBC, MG #### [facility] [address] [place] [address] [phone] [employer]: Rodrick Jones MD Urine RBC's TOO NUMEROUS TO COUNT Normal 0-4 [facility] Comment on above: Result Comment: Refe rence range defined for non-centrifuged specimen. Performed By: #### C RP, RENP, CBC, MG #### [facility] [address] [place] [address] [phone] [employer]: Rodrick Jones MD Urine WBC's 10 TO 20 Normal 0-5 [facility] Comment on above: Performed By: #### C RP, RENP, CBC, MG #### [facility] [address] [place] [address] [phone] [employer]: Rodrick Jones MD Urobilinogen,Ur Normal Normal NORM [facility] Comment on above: Performed By: #### C RP, RENP, CBC, MG #### [facility] [address] [place], [place] [phone] [employer]: Rodrick Jones MD Urinalysis with Microscopico n 05-28-2022 Bilirubin Urine Negative NEGATIVE [facility] Casts UA 2 TO 5 HYALINE Reference range defined for non-centrifuged specimen. [facility] Color, UA Yellow Yellow [facility] Epithelial Cells UA None [facility] Glucose Auto test strip (U) [Mass/Vol] Negative NEGATIVE [facility] Interpretation and review of laboratory results Abnormal [facility] Ketones (U) [Mass/Vol] Negative NEGATIVE [facility] Leukocyte esterase Auto test strip Ql (U) TRACE Abnormal NEGATIVE [facility] Nitrite Auto test strip Ql (U) Negative NEGATIVE [facility] Protein (U) [Mass/Vol] 5.5 mg/dL 5.0 - 8.0 J[facility] Protein (U) [Mass/Vol] 2+ Abnormal NEGATIVE [facility] RBC clumps Auto (Urine sed) [#/Area] TOO NUMEROUS TO COUNT [facility] Comment on above: Reference range defi jya jay for non-centrifuged specimen. Specific Grabill, UA 1.011 1.005 - 1.030 B ON [facility] Turbidity UA Clear Clear [facility] Urine Hgb LARGE Abnormal NEGATIVE [facility] Urobilinogen, Urine Normal Normal [facility] WBC, UA 10 TO 20 [facility] XR CHEST 1 Von 05-28-2022 XR CHEST 1 V EXAMINATION: XR CHEST 1 V HISTORY: SHORTNESS OF BREATH COMPARISON: XR chest 05/27/2022 FINDINGS: LUNGS: Stable calcified nodules within lung bases favoring chronic granulomas. Mild opacity over left lung base. VASCULATURE: No increased pulmonary vasculature. PLEURA: No pneumothorax, effusion, or pleural thickening. CARDIAC: No cardiomegaly or cardiac silhouette abnormality. MEDIASTINUM: No visible mass or adenopathy. BONES: No fracture or visible bone lesion. OTHER: Negative. IMPRESSION: 1. Mild opacity over left lung base suspected to be anterior soft tissue artifact. Mild infiltrates are not completely excluded. Electronically authenticated by: JOSÉ SYLVESTER Date: 2022-05-28 12:[address] [facility] BLOOD CULTURE ID PANELon A. baumannii Not detected Normal NOT DETECTED [facility] Comment on above: Performed By: #### C VDTBH #### [facility] [address] [place] [address] Dr. Kalie Rodas Bacteriodes fragilis Not detected Normal NOT DETECTED [facility] Comment on above: Performed By: #### C VDTBH #### [facility] [address] [place] [address] Dr. Kalie CAMPBELLD CONTROLS PASSED Normal [facility] Comment on above: Performed By: #### C VDTBH #### [facility] [address] [place] [address] Dr. Kalie CAMPBELLDBTHD BLOOD CULTURE BOTTLE INFORMATION Normal [facility] Comment on above: Performed By: #### C VDTBH #### [facility] [address] [place] [address] Dr. Kalie Rodas BCIDHD1 ANTIMICROBIAL RESISTANCE GENES Normal [facility] Comment on above: Performed By: #### C VDTBH #### [facility] [address] [place] [address] Dr. Kalie CAMPBELLDHD2 SEE BELOW Normal [facility] Comment on above: Result Comment: Note : Antimicrobial resitance can occur via multiple mechanisms. A Not Detected result for the [employer] antomicrobial resistance gene assays does not indicate antimicrobial susceptibility. Subculturing is required for species identification and susceptibility testing of isolates. Performed By: #### C VDTBH #### [facility] [address] [place] [address] Dr. Kalie Rodas BCIDHD3 Positive Normal [facility] Comment on above: Performed By: #### C VDTBH #### [facility] [address] [place] [address] Dr. Kalie Rodas BCIDHD4 Negative Normal [facility] Comment on above: Performed By: #### C VDTBH #### [facility] [address] [place] [address] Dr. Kalie Rodas BCIDHD5 YEAST Normal [facility] Comment on above: Performed By: #### C VDTBH #### [facility] [address] [place] [address] Dr. Kalie Rodas Bottle Set: Set [address] [facility] Comment on above: Performed By: #### C VDTBH #### [facility] [address] [place] [address] Dr. Kalie Rodas Bottle: Aerobic Normal [facility] Comment on above: Performed By: #### C VDTBH #### [facility] [address] [place] [address] Dr. Kalie Rodas C. neoformans/gattii Not detected Normal NOT DETECTED [facility] Comment on above: Performed By: #### C VDTBH #### [facility] [address] [place] [address] Dr. Kalie Rodas Nida albicans Not detected Normal NOT DETECTED [facility] Comment on above: Performed By: #### C VDTBH #### [facility] [address] [place] [address] Dr. Kalie Rodas Nida auris Not detected Normal NOT DETECTED [facility] Comment on above: Performed By: #### C VDTBH #### [facility] [address] [place] [address] Dr. Kalie Rodas Nida glabrata Not detected Normal NOT DETECTED [facility] Comment on above: Performed By: #### C VDTBH #### [facility] [address] [place] [address] Dr. Kalie Rodas Nida Krusei Not detected Normal NOT DETECTED [facility] Comment on above: Performed By: #### C VDTBH #### [facility] [address] [place] [address] Dr. Kalie Rodas Nida Parapsilosis Not detected Normal NOT DETECTED [facility] Comment on above: Performed By: #### C VDTBH #### [facility] [address] [place] [address] Dr. Kalie Rodas Nida Tropicalis Not detected Normal NOT DETECTED [facility] Comment on above: Performed By: #### C VDTBH #### [facility] [address] [place] [address] Dr. Kalie Rodas CTX-M Resistant Gene Not Applicable Normal NOT DETECTE D [facility] Comment on above: Performed By: #### C VDTBH #### [facility] [address] [place] [address] Dr. Kalie Rodas E. Cloacae complex Not detected Normal NOT DETECTED [facility] Comment on above: Performed By: #### C VDTBH #### [facility] [address] [place] [address] Dr. Kalie Rodas E. faecalis Not detected Normal NOT DETECTED [facility] Comment on above: Performed By: #### C VDTBH #### [facility] [address] [place] [address] Dr. Kalie Rodas E. faecium Not detected Normal NOT DETECTED [facility] Comment on above: Performed By: #### C VDTBH #### [facility] [address] [place] [address] Dr. Kalie Rodas Enterobacteriaceae Not detected Normal NOT DETECTED [facility] Comment on above: Performed By: #### C VDTBH #### [facility] [address] [place] [address] Dr. Kalie Rodas Escherichia coli Not detected Normal NOT DETECTED [facility] Comment on above: Performed By: #### C VDTBH #### [facility] [address] [place] [address] Dr. Kalie Rodas H. influenzae Not detected Normal NOT DETECTED [facility] Comment on above: Performed By: #### C VDTBH #### [facility] [address] [place] [address] Dr. Kalie Rodas IMP Resistant Gene Not Applicable Normal NOT DETECTED [facility] Comment on above: Performed By: #### C VDTBH #### [facility] [address] [place] [address] Dr. Kalie Rodas K. oxytoca Not detected Normal NOT DETECTED [facility] Comment on above: Performed By: #### C VDTBH #### [facility] [address] [place] [address] Dr. Kalie Rodas K. pneumoniae Not detected Normal NOT DETECTED [facility] Comment on above: Performed By: #### C VDTBH #### [facility] [address] [place] [address] Dr. Kalie Rodas Klebsiella aerogenes Not detected Normal NOT DETECTED [facility] Comment on above: Performed By: #### C VDTBH #### [facility] [address] [place] [address] Dr. Kalie Rodas KPC Resistant Gene Not Applicable Normal NOT DETECTED [facility] Comment on above: Performed By: #### C VDTBH #### [facility] [address] [place] [address] Dr. Kalie Rodas List. monocytogenes Not detected Normal NOT DETECTED [facility] Comment on above: Performed By: #### C VDTBH #### [facility] [address] [place] [address] Dr. Kalie Rodas Mcr-1 Resistant Gene Not Applicable Normal NOT DETECTE D [facility] Comment on above: Performed By: #### C VDTBH #### [facility] [address] [place] [address] Dr. Kalie Rodas mecA/C Detected Abnormal NOT DETECTED [facility] Comment on above: Performed By: #### C VDTBH #### [facility] [address] [place] [address] Dr. Kalie Rodas mecA/C MREJ Not Applicable Normal NOT DETECTED [facility] Comment on above: Performed By: #### C VDTBH #### [facility] [address] [place] [address] Dr. Kalie Rodas N. meningitidis Not detected Normal NOT DETECTED [facility] [place] Comment on above: Performed By: #### C VDTBH #### [facility] [address] [place] [address] Dr. Kalie Rodas NDM Resistant Gene Not Applicable Normal NOT DETECTED [facility] Comment on above: Performed By: #### C VDTBH #### [facility] [address] [place] [address] Dr. Kalie Rodas Oxa-48-like Not Applicable Normal NOT DETECTED [facility] Comment on above: Performed By: #### C VDTBH #### [facility] [address] [place] [address] Dr. Kalie Rodas Proteus Not detected Normal NOT DETECTED [facility] Comment on above: Performed By: #### C VDTBH #### [facility] [address] [place] [address] Dr. Kalie Rodas Pseud. aeruginosa Not detected Normal NOT DETECTED [facility] Comment on above: Performed By: #### C VDTBH #### [facility] [address] [place] [address] Dr. Kalie Rodas S. maltophilia Not detected Normal NOT DETECTED [facility] Comment on above: Performed By: #### C VDTBH #### [facility] [address] [place] [address] Dr. Kalie Rodas Salmonella Not detected Normal NOT DETECTED [facility] Comment on above: Performed By: #### C VDTBH #### [facility] [address] [place] [address] Dr. Kalie Rodas Seratia marcescens Not detected Normal NOT DETECTED [facility] Comment on above: Performed By: #### C VDTBH #### [facility] [address] [place] [address] Dr. Kalie Rodas Site: rt. hand Normal [facility] Comment on above: Performed By: #### C VDTBH #### [facility] [address] [place] [address] Dr. Kalie Rodas Stapsharla. aureus Not detected Normal NOT DETECTED [facility] Comment on above: Performed By: #### C VDTBH #### [facility] [address] [place] [address] Dr. Kalie Rodas Staph. epidermidis Detected Critically abnormal NOT DETECTED [facility] Comment on above: Performed By: #### C VDTBH #### [facility] [address] [place] [address] Dr. Kalie Rodas Staph. lugdunensis Not detected Normal NOT DETECTED [facility] Comment on above: Performed By: #### C VDTBH #### [facility] [address] [place] [address] Dr. Kalie Rodas Staphylococcus Detected Critically abnormal NOT DETECTED [facility] Comment on above: Performed By: #### C VDTBH #### [facility] [address] [place] [address] Dr. Kalie Rodas Strep. agalactiae Not detected Normal NOT DETECTED [facility] Comment on above: Performed By: #### C VDTBH #### [facility] [address] [place] [address] Dr. Kalie Rodas Strep. pneumoniae Not detected Normal NOT DETECTED [facility] Comment on above: Performed By: #### C VDTBH #### [facility] [address] [place] [address] Dr. Kalie Rodas Strep. pyogenes Not detected Normal NOT DETECTED [facility] Comment on above: Performed By: #### C VDTBH #### [facility] [address] [place] [address] Dr. Kalie Rodas Streptococcus Not detected Normal NOT DETECTED [facility] Comment on above: Performed By: #### C VDTBH #### [facility] [address] [place] [address] Dr. Kalie Rodas Nael/B Resist. Gene Not detected Normal NOT DETECTED [facility] Comment on above: Performed By: #### C VDTBH #### [facility] [address] [place] [address] Dr. Kalie Rodas VIM Resistant Gene Not Applicable Normal NOT DETECTED [facility] Comment on above: Performed By: #### C VDTBH #### [facility] [address] [place] [address] Dr. Kalie Rodas CBC AUTO DIFFon 05-27-2022 BASO # 0.0 103/ul Normal 0.0-0.1 [facility] Comment on above: Performed By: #### C VDTBH #### [facility] [address] [place] [address] Dr. Kalie Rodas Basophils/100 WBC (Bld) 0.4 % Normal 0.2-2.0 [facility] Comment on above: Performed By: #### C VDTBH #### [facility] [address] [place] [address] Dr. Kalie Rodas EO # 0.0 103/ul Normal 0.0-0.7 [facility] Comment on above: Performed By: #### C VDTBH #### [facility] [address] [place] [address] Dr. Kalie Rodas Eosinophils/100 WBC (Bld) 0.0 % Critically low 0.9-7.0 [facility] Comment on above: Performed By: #### C VDTBH #### [facility] [address] [place] [address] Dr. Kalie Rodas Erythrocyte distribution width (RBC) [Ratio] 13.9 % Normal 11.0-15.0 [facility] Comment on above: Performed By: #### C VDTBH #### [facility] [address] [place] [address] Dr. Kalie Rodas Hematocrit (Bld) [Volume fraction] 37.9 % Critically low 42.0-54.0 [facility] Comment on above: Performed By: #### C VDTBH #### [facility] [address] [place] [address] Dr. Kalie Rodas Hemoglobin (Bld) [Mass/Vol] 12.8 g/dL Critically low 14.0-18.0 [facility] Comment on above: Performed By: #### C VDTBH #### [facility] [address] [place] [address] Dr. Kalie Rodas IG # 0.05 10e3/ul Critically high 0.00-0.03 [facility] Comment on above: Performed By: #### C VDTBH #### [facility] [address] [place] [address] Dr. Kalie Rodas IG % 0.5 % Normal 0.0-0.5 [facility] Comment on above: Performed By: #### C VDTBH #### [facility] [address] [address] [address] Kalie Rodas LYMPH # 1.1 103/ul Critically low 1.2-3.8 [facility] Comment on above: Performed By: #### C VDTBH #### [facility] [address] [address] [address] Kalie Rodas Lymphocytes/100 WBC (Bld) 9.6 % Critically low 20.5-60.0 [facility] Comment on above: Performed By: #### C VDTBH #### [facility] [address] [place] [address] Dr. Kalie Rodas MANUAL DIFF REQ NO Normal [facility] Comment on above: Performed By: #### C VDTBH #### [facility] [address] [place] [address] Dr. Kalie Rodas MCH (RBC) [Entitic mass] 30.3 pg Normal 25.9-34.0 [facility] Comment on above: Performed By: #### C VDTBH #### [facility] [address] [place] [address] Dr. Kalie Rodas MCHC (RBC) [Mass/Vol] 33.8 g/dL Normal 29.9-35.2 [facility] Comment on above: Performed By: #### C VDTBH #### [facility] [address] [place] [address] Dr. Kalie Rodas MCV (RBC) [Entitic vol] 89.8 fL Normal 80.0-94.[address] [facility] Comment on above: Performed By: #### C VDTBH #### [facility] [address] [place] [address] Dr. Kalie Rodas MONO # 1.1 103/ul Critically high 0.3-0.8 [facility] Comment on above: Performed By: #### C VDTBH #### [facility] [address] [place] [address] Dr. Kalie Rodas Monocytes/100 WBC (Bld) 10.1 % Normal 1.7-12.[address] [facility] Comment on above: Performed By: #### C VDTBH #### [facility] [address] [place] [address] Dr. Kalie Rodas NEUT # 8.8 103/ul Critically high 1.4-6.5 [facility] Comment on above: Performed By: #### C VDTBH #### [facility] [address] [place] [address] Dr. Kalie Rodas Neutrophils/100 WBC (Bld) 79.4 % Critically high 43.0-75.[address] [facility] Comment on above: Performed By: #### C VDTBH #### [facility] [address] [place] [address] Dr. Kalie Rodas Platelet mean volume (Bld) [Entitic vol] 10.0 fL Normal 9.5-13.5 [facility] Comment on above: Performed By: #### C VDTBH #### [facility] [address] [place] [address] Dr. Kalie Rodas PLT 187 103/ul Normal 150-[address] [facility] Comment on above: Performed By: #### C VDTBH #### [facility] [address] [place] [address] Dr. Kalie Rodas RBC 4.22 106/ul Critically low 4.70-6.10 [facility] Comment on above: Performed By: #### C VDTBH #### [facility] [address] [place] [address] Dr. Kalie Rodas WBC 11.0 103/ul Normal 4.0-11.[address] [facility] Comment on above: Performed By: #### C VDTBH #### [facility] [address] [place] [address] Dr. Kalie Rodas CBC W MANUAL DIFFon 05-27-19 23 ATYPICAL LYMPH # Normal [facility] Comment on above: Performed By: #### C VDTBH #### [facility] [address] [place] [address] Dr. Kalie Rodas ATYPICAL LYMPH % Normal [facility] [place] [facility] Comment on above: Performed By: #### C VDTBH #### [facility] [address] [place] [address] Dr. Kalie Rodas BAND # Normal 0.0-0.3 [facility] Comment on above: Performed By: #### C VDTBH #### [facility] [address] [place] [address] Dr. Kalie Rodas BAND % Normal 0-5 [facility] Comment on above: Performed By: #### C VDTBH #### [facility] [address] [place] [address] Dr. Kalie Rodas BASOM # 0.00 103/ul Normal 0.00-0.10 [facility] Comment on above: Performed By: #### C VDTBH #### [facility] [address] [place] [address] Dr. Kalie Rodas BASOM % 0.0 % Critically low 0.2-2.0 [facility] Comment on above: Performed By: #### C VDTBH #### [facility] [address] [place] [address] Dr. Kalie Rodas BLAST # Normal [facility] Comment on above: Performed By: #### C VDTBH #### [facility] [address] [place] [address] Dr. Kalie Rodas BLAST % Normal [facility] Comment on above: Performed By: #### C VDTBH #### [facility] [address] [place] [address] Dr. Kalie Rodas CORRECTED WBC Normal 4.0-11.0 [facility] Comment on above: Performed By: #### C VDTBH #### [facility] [address] [place] [address] Dr. Kalie Rodas EOS # 0.00 103/ul Normal 0.00-0.70 [facility] Comment on above: Performed By: #### C VDTBH #### [facility] [address] [place] [address] Dr. Kalie Rodas EOS% 0.0 % Critically low 0.9-7.0 [facility] Comment on above: Performed By: #### C VDTBH #### [facility] [address] [place] [address] Dr. Kalie Rodas HCT 40.1 % Critically low 42.0-54.0 [facility] Comment on above: Performed By: #### C VDTBH #### [facility] [address] [address] [address] Kalie Rodas HGB 13.9 g/dl Critically low 14.0-18.0 [facility] Comment on above: Performed By: #### C VDTBH #### [facility] [address] [place] [address] Dr. Kalie Rodas LYMPHM # 0.75 103/ul Critically low 1.20-3.80 [facility] Comment on above: Performed By: #### C VDTBH #### [facility] [address] [place] [address] Dr. Kalie Rodas LYMPHM% 5.0 % Critically low 20.5-60.0 [facility] Comment on above: Performed By: #### C VDTBH #### [facility] [address] [place] [address] Dr. Kalie Rodas MCH 30.8 pg Normal 25.9-34.0 [facility] Comment on above: Performed By: #### C VDTBH #### [facility] [address] [place] [address] Dr. Kalie Rodas MCHC 34.7 g/dl Normal 29.9-35.[address] [facility] Comment on above: Performed By: #### C VDTBH #### [facility] [address] [place] [address] Dr. Kalie Rodas MCV 88.9 fL Normal 80.0-94.0 [facility] Comment on above: Performed By: #### C VDTBH #### [facility] [address] [place] [address] Dr. Kalie Rodas METAMYELOCYTE # Normal [facility] Comment on above: Performed By: #### C VDTBH #### [facility] [address] [address] [address] Kalie Rodas METAMYELOCYTE % Normal [facility] Comment on above: Performed By: #### C VDTBH #### [facility] [address] [address] [address] Kalie Rodas MONOM# 1.80 103/ul Critically high 0.30-0.80 [facility] [place] [facility] Comment on above: Performed By: #### C VDTBH #### [facility] [address] [place] [address] Dr. Kalie Rodas MONOM% 12.0 % Normal 1.7-12.0 [facility] Comment on above: Performed By: #### C VDTBH #### [facility] [address] [place] [address] Dr. Kalie Rodas MPV 9.6 fL Normal 9.5-13.5 [facility] Comment on above: Performed By: #### C VDTBH #### [facility] [address] [place] [address] Dr. Kalie Rodas MYELOCYTE # Normal [facility] Comment on above: Performed By: #### C VDTBH #### [facility] [address] [place] [address] Dr. Kalie Rodas MYELOCYTE % Normal [facility] Comment on above: Performed By: #### C VDTBH #### [facility] [address] [place] [address] Dr. Kalie Rodas NRBC Normal [facility] Comment on above: Performed By: #### C VDTBH #### [facility] [address] [place] [address] Dr. Kalie Rodas PLT 236 103/ul Normal 150-450 [facility] Comment on above: Performed By: #### C VDTBH #### [facility] [address] [place] [address] Dr. Kalie Rodas RBC 4.51 106/ul Critically low 4.70-6.10 [facility] Comment on above: Performed By: #### C VDTBH #### [facility] [address] [place], [place] [address] Dr. Kalie Rodas RDW 13.7 % Normal 11.0-15.0 [facility] Comment on above: Performed By: #### C VDTBH #### [facility] [address] [place], [place] [address] Dr. Kalie Rodas SEG # 12.45 103/ul Critically high 1.40-6.50 [facility] Comment on above: Performed By: #### C VDTBH #### [facility] [address] [place], [place] [address] Dr. Kalie Rodas SEG % 83.0 % Critically high 43.0-75.0 [facility] Comment on above: Performed By: #### C VDTBH #### [facility] [address] [place], [place] [address] Dr. Kalie Rodas WBC 15.0 103/ul Critically high 4.0-11.0 [facility] [place] [facility] Comment on above: Performed By: #### C VDTBH #### [facility] [address] [place], [place] [address] ABD/PELVIS WO CONon 05-27 CT ABD/PELVIS WO CON EXAMINATION: CT ABD/PELVIS WO CON, 05/27/2022 12:31 PM EST HISTORY: CALCULUS OF KIDNEY COMPARISON: None. TECHNIQUE: CT scan of the abdomen and pelvis was performed without IV contrast. CT dose reduction technique was used, including Automated Exposure Control. ABDOMEN/PELVIS FINDINGS: Lower Chest: A couple calcified pulmonary nodules are present in the lung bases, likely due to remote granulomatous disease. Liver: Normal nonenhanced appearance and contour. Biliary/Gallbladder: Prior cholecystectomy. Pancreas: Unremarkable. Spleen: Multiple punctate calcifications are present in the spleen, likely due to remote granulomatous disease. Adrenal Glands: Unremarkable. Kidneys: Mild left-sided hydronephrosis is present with an obstructive calculus at the distal left ureter measuring 6.1 mm. Bilateral renal calculi are present that are nonobstructive. The right kidney is severely atrophic. Gastrointestinal/Per itoneum: No acute abnormality. The appendix is unremarkable. No free air or free fluid. Vascular: There are mild scattered atherosclerotic calcifications present. Lymph Nodes: No enlarged lymph nodes by CT size criteria. Pelvic Organs: Unremarkable. Bladder: Unremarkable. Bones: No acute osseous abnormality. A prominent posterior disc osteophyte complex is present at L1-L2 causing moderate spinal canal stenosis. Soft tissues: There is focal subcutaneous edema present at the right anterior abdominal wall. IMPRESSION: 1. Mild left-sided obstructive uropathy with a 6.1 mm calculus at the distal ureter. 2. Bilateral nephrolithiasis. 3. Severe atrophy of the right kidney. 4. Focal subcutaneous edema at the right anterior abdominal wall, possibly due to contusion. 5. Prior cholecystectomy. 6. Prominent posterior disc osteophyte complex at L1-L2 causing moderate spinal canal stenosis. Electronically authenticated by: KASSIE TO Date: 2022-05-27 13:[address] [facility] CULTURE BLOODon 05-27-2022 Microscopic examination of blood, culture Culture Observations: Aerobic & Anaerobic bottles positive; BCID- Staphylococcus Epidermidis Culture Observations: Please refer to accession #[id number] for susceptibilities. Isolate 1 Staphylococcus epidermidis Growth of Isolate 2 Staphylococcus hominis Growth of Normal [facility] Comment on above: Performed By: #### C BC #### [facility] [address] [place] [address] Dr. Kalie Rodas [facility]12 SARS-CoV-2 (COVID-19) RNA BENTLEY+probe Ql (Unsp spec) Not detected Normal NOT DETECTED [facility] Comment on above: Result Comment: When diagnostic testing is negative, the possibility of a false negative should be considered in the context of a patient's recent exposures and the presence of clinical signs and symptoms consistent with SARS-CoV-2. This test is not yet approved or cleared by the [place] FDA. When there are no FDA-approved or cleared tests available, and other criteria are met, FDA can make tests available under an emergency access mechanism called an Emergency Use Authorization (EUA). The EUA for this test is supported by the [place] of Health and Human Service's declaration that circumstances exist to justify the emergency use of in vitro diagnostics for the detection and/or diagnosis of the virus that causes COVID-19. This EUA will remain in effect for the duration of the COVID-19 declaration justifying emergency of IVDs, unless it is terminated or revoked by the FDA (after which the test may no longer be used). Performed By: #### C MP, TSH #### [facility] [address] [place] [address] Dr. Kalie Rodas ER URINE PROFILEon 3 Bilirubin Ql (U) Negative Normal NEGATIVE [facility] Comment on above: Performed By: #### M ALBCRL #### [facility] [address] [place] [address] Dr. Kalie Rodas Clarity (U) CLEAR Normal CLEAR [facility] Comment on above: Performed By: #### M ALBCRL #### [facility] [address] [place] [address] Dr. Kalie Rodas Color (U) LT. YELLOW Normal YELLOW [facility] Comment on above: Performed By: #### M ALBCRL #### [facility] [address] [place] [address] Dr. Kalie FLORESAHMachelle A micrscopic examination will be performed if indicated. Normal [facility] Comment on above: Performed By: #### M ALBCRL #### [facility] [address] [place] [address] Dr. Kalie Rodas Glucose Ql (U) Negative Normal NEGATIVE [facility] Comment on above: Performed By: #### M ALBCRL #### [facility] [address] [place] [address] Dr. Kalie Rodas Hemoglobin Ql (U) LARGE Abnormal NEGATIVE [facility] Comment on above: Performed By: #### M ALBCRL #### [facility] [address] [place] [address] Dr. Kalie Rodas Ketones Ql (U) Negative Normal NEGATIVE [facility] Comment on above: Performed By: #### M ALBCRL #### [facility] [address] [place] [address] Dr. Kalie Rodas LEUKOCYTES MODERATE Abnormal NEGATIVE [facility] Comment on above: Performed By: #### M ALBCRL #### [facility] [address] [place] [address] Dr. Kalie Rodas Nitrite Ql (U) Negative Normal NEGATIVE [facility] Comment on above: Performed By: #### M ALBCRL #### [facility] [address] [place] [address] Dr. Kalie Rodas pH (U) 6.0 [pH] Normal 5-9 [facility] Comment on above: Performed By: #### M ALBCRL #### [facility] [address] [place] [address] Dr. Kalie Rodas Protein (U) [Mass/Vol] 100 mg/dL Abnormal NEGAT AHRISH/ TRACE [facility] Comment on above: Performed By: #### M ALBCRL #### [facility] [address] [place] [address] Dr. Kalie Rodas SPEC GRAVITY 1.015 Normal 1.005-<=1.025 [facility] Comment on above: Performed By: #### M ALBCRL #### [facility] [address] [place] [address] Dr. Kalie Rodas UR MICRO IND INDICATED Normal [facility] Comment on above: Performed By: #### M ALBCRL #### [facility] [address] [place] [address] Dr. Kalie Rodas Urobilinogen Qn (U) 0.2 {Naresh'U}/dL Normal 0.2 - 1. 0 [facility] Comment on above: Performed By: #### M ALBCRL #### [facility] [address] [place] [address] Dr. Kalie Rodas POINT OF CARE GLUCOSEon - Glucose [Mass/Vol] 109 mg/dL Critically high 74-106 [facility] Comment on above: Performed By: #### M ALBCRL #### [facility] [address] [place] [address] Dr. Kalie Rodas Glucose [Mass/Vol] 65 mg/dL Critically low 74-106 [facility] Comment on above: Performed By: #### P OCGLUC #### [facility] [address] [place] [address] Dr. Kalie Rodas Performed By: #### C VDTBH #### [facility] [address] [place] [address] Dr. Kalie Rodas Glucose [Mass/Vol] 117 mg/dL Critically high 74-106 [facility] Comment on above: Performed By: #### M ALBCRL #### [facility] [address] [place] [address] Dr. Kalie Rodas Glucose [Mass/Vol] 62 mg/dL Critically low 74-106 [facility] Comment on above: Performed By: #### C BC #### [facility] [address] [place] [address] Dr. Kalie Rodas PROF 14(COMP METB)on 023 Albumin [Mass/Vol] 3.1 g/dL Critically low 3.4-5.0 [facility] Comment on above: Performed By: #### C VDTBH #### [facility] [address] [place] [address] Dr. Kalie Rodas Albumin/Globulin [Mass ratio] 0.6 {ratio} Normal [facility] Comment on above: Performed By: #### C VDTBH #### [facility] [address] [place] [address] Dr. Kalie Rodas ALP [Catalytic activity/Vol] 112 U/L Normal 46-116 [facility] Comment on above: Performed By: #### C VDTBH #### [facility] [address] [place] [address] Dr. Kalie Rodas ALT [Catalytic activity/Vol] 28 U/L Normal 16-63 [facility] Comment on above: Performed By: #### C VDTBH #### [facility] [address] [place] [address] Dr. Kalie Rodas Anion gap [Moles/Vol] 23.2 mmol/L Normal [facility] Comment on above: Performed By: #### C VDTBH #### [facility] [address] [place] [address] Dr. Kalie Rodas AST [Catalytic activity/Vol] 37 U/L Normal 15-37 [facility] Comment on above: Performed By: #### C VDTBH #### [facility] [address] [address] [address] Kalie Rodas Bilirubin [Mass/Vol] 0.4 mg/dL Normal 0.2-1.0 [facility] Comment on above: Performed By: #### C VDTBH #### [facility] [address] [address] [address] Kalie Rodas Calcium [Mass/Vol] 9.2 mg/dL Normal 8.5-10.1 [facility] Comment on above: Performed By: #### C VDTBH #### [facility] [address] [address] [address] Kalie Rodas Chloride [Moles/Vol] 100 mmol/L Normal 98-107 [facility] Comment on above: Performed By: #### C VDTBH #### [facility] [address] [address] [address] Kalie Rodas CO2 [Moles/Vol] 16.1 mmol/L Critically low 21.0-32.0 [facility] Comment on above: Performed By: #### C VDTBH #### [facility] [address] [address] [address] Kalie Rodas Creatinine [Mass/Vol] 8.75 mg/dL Critically high 0.70-1.30 [facility] Comment on above: Performed By: #### C VDTBH #### [facility] [address] [address] [address] Kalie Rodas EGFR-NON AF PUERTO RICAN 6 mL/min/1.73m2 Critically low >=60 [facility] Comment on above: Performed By: #### C VDTBH #### [facility] [address] [address] [address] Kalie Rodas Globulin (S) [Mass/Vol] 5.1 g/dL Normal [facility] Comment on above: Performed By: #### C VDTBH #### [facility] [address] [address] [address] Kalie Rodas Potassium [Moles/Vol] 4.3 mmol/L Normal 3.5-5.1 [facility] Comment on above: Performed By: #### C VDTBH #### [facility] [address] [place] [address] Dr. Kalie Rodas Protein [Mass/Vol] 8.2 g/dL Normal 6.4-8.2 [facility] Comment on above: Performed By: #### C VDTBH #### [facility] [address] [place] [address] Dr. Kalie Rodas Sodium [Moles/Vol] 135 mmol/L Critically low 136-145 [facility] Comment on above: Performed By: #### C VDTBH #### [facility] [address] [place] [address] Dr. Kalie Rodas Urea nitrogen [Mass/Vol] 86.0 mg/dL Critically high 7.0-18.0 [facility] Comment on above: Performed By: #### C VDTBH #### [facility] [address] [place] [address] Dr. Kalie Rodas Urea nitrogen/Creatinine [Mass ratio] 9.8 mg/mg Normal [facility] Comment on above: Performed By: #### C VDTBH #### [facility] [address] [place] [address] Dr. Kalie Rodas PROF CHEM 8 (BAS METB)on Anion gap [Moles/Vol] 19.3 mmol/L Normal [facility] Comment on above: Performed By: #### M ALBCRL #### [facility] [address] [place] [address] Dr. Kalie Rodas Calcium [Mass/Vol] 8.6 mg/dL Normal 8.5-10.[address] [facility] Comment on above: Performed By: #### M ALBCRL #### [facility] [address] [place] [address] Dr. Kalie Rodas Chloride [Moles/Vol] 101 mmol/L Normal 98-107 [facility] Comment on above: Performed By: #### M ALBCRL #### [facility] [address] [place] [address] Dr. Kalie Rodas CO2 [Moles/Vol] 17.1 mmol/L Critically low 21.0-32.0 [facility] Comment on above: Performed By: #### M ALBCRL #### [facility] [address] [place] [address] Dr. Kalie Rodas Creatinine [Mass/Vol] 8.07 mg/dL Critically high 0.70-1.30 [facility] Comment on above: Performed By: #### M ALBCRL #### [facility] [address] [place] [address] Dr. Kalie Rodas EGFR-AF PUERTO RICAN 8 mL/min/1.73m2 Critically low >=60 [facility] Comment on above: Performed By: #### M ALBCRL #### [facility] [address] [place] [address] Dr. Kalie Rodas Performed By: #### C VDTBH #### [facility] [address] [place] [address] Dr. Kalie Rodas EGFR-NON AF PUERTO RICAN 7 mL/min/1.73m2 Critically low >=60 [facility] Comment on above: Performed By: #### M ALBCRL #### [facility] [address] [place] [address] Dr. Kalie Rodas Glucose [Mass/Vol] 58 mg/dL Critically low 74-106 Th [facility] Comment on above: Performed By: #### M ALBCRL #### [facility] [address] [place] [address] Dr. Kalie Rodas Potassium [Moles/Vol] 4.4 mmol/L Normal 3.5-5.1 [facility] Comment on above: Performed By: #### M ALBCRL #### [facility] [address] [place] [address] Dr. Kalie Rodas Sodium [Moles/Vol] 133 mmol/L Critically low 136-145 Th [facility] Comment on above: Performed By: #### M ALBCRL #### [facility] [address] [place] [address] Dr. Kalie Rodas Urea nitrogen [Mass/Vol] 85.0 mg/dL Critically high 7.0-18.[address] [facility] Comment on above: Performed By: #### M ALBCRL #### [facility] [address] [place] [address] Dr. Kalie Rodas Urea nitrogen/Creatinine [Mass ratio] 10.5 mg/mg Normal [facility] Comment on above: Performed By: #### M ALBCRL #### [facility] [address] [place] [address] Dr. Kalie Rodas URINE MICROSCOPIC ONLYon BACTERIA SMALL Abnormal NONE SEEN [facility] Comment on above: Performed By: #### M ALBCRL #### [facility] [address] [place] [address] Dr. Kalie Rodas Bacteria identified Cx Nom (U) INDICATED Normal [facility] Comment on above: Performed By: #### M ALBCRL #### [facility] [address] [place] [address] Dr. Kalie Rodas CAST SEEN Abnormal NONE SEEN [facility] Comment on above: Performed By: #### M ALBCRL #### [facility] [address] [place] [address] Dr. Kalie Rodas Crystals LM Nom (Urine sed) NONE SEEN Normal NONE SEEN [facility] Comment on above: Performed By: #### M ALBCRL #### [facility] [address] [place] [address] Dr. Kalie Rodas Epithelial cells LM Ql (Urine sed) FEW Abnormal NONE SEEN /RARE [facility] Comment on above: Performed By: #### M ALBCRL #### [facility] [address] [place] [address] Dr. Kalie Rodas HYALINE CAST RARE Normal [facility] Comment on above: Performed By: #### M ALBCRL #### [facility] [address] [place] [address] Dr. Kalie Rodas MUCOUS NONE SEEN Normal NONE SEEN [facility] Comment on above: Performed By: #### M ALBCRL #### [facility] [address] [place] [address] Dr. Kalie Rodas RBC 10-20 Abnormal 0-[address] [facility] Comment on above: Performed By: #### M ALBCRL #### [facility] [address] [address] [address] Kalie Rodas WBC 10-20 Abnormal NONE SEEN [facility] Comment on above: Performed By: #### M ALBCRL #### [facility] [address] [address] [address] Kalie Rodas XR CHEST 1 Von 05-27-2022 XR CHEST 1 V EXAM: XR CHEST 1 V HISTORY: COUGH COMPARISON: Chest x-ray, 06/23/2021. TECHNIQUE: AP upright portable chest x-ray. FINDINGS: Cardiac size is normal. Pulmonary vascularity appears within normal limits. Mild nonspecific upper mediastinal widening is partially due to mild patient rotation to the right and body habitus. Nonspecific partial obscuration of the left diaphragm may reflect suboptimal penetration of the left lung base versus underlying pleural fluid, atelectasis and/or infiltrate. The lungs are well expanded and otherwise grossly clear. IMPRESSION: Nonspecific partial obscuration of the left diaphragm may reflect suboptimal penetration of the left lung base due to body habitus, versus underlying pleural fluid, atelectasis and/or infiltrate. The lungs are well expanded and otherwise grossly clear. Electronically authenticated by: GABRIELE RICE Date: 2022-05-27 18:[address] [facility] RESPIRATORY PANEL PLUSon Adenovirus Not detected Normal NOT DETECTED [facility] Comment on above: Performed By: #### C MP, TSH #### [facility] [address] [place] [address] Dr. Kalie Rodas B. Parapertusis Not detected Normal NOT DETECTED The [place] Comment on above: Performed By: #### C MP, TSH #### [facility] [address] [address] [address] Kalie Jason. Pertussis Not detected Normal NOT DETECTED [facility] Comment on above: Performed By: #### C MP, TSH #### [facility] [address] [place] [address] Dr. Kalie Rodas Chlamydia Pneumoniae Not detected Normal NOT DETECTED [facility] Comment on above: Performed By: #### C MP, TSH #### [facility] [address] [place] [address] Dr. Kalie Rodas Coronavirus 229E Not detected Normal NOT DETECTED [facility] Comment on above: Performed By: #### C MP, TSH #### [facility] [address] [address] [address] Kalie Rodas Coronavirus HKU1 Not detected Normal NOT DETECTED [facility] Comment on above: Performed By: #### C MP, TSH #### [facility] [address] [place] [address] Dr. Kalie Rodas Coronavirus NL63 Not detected Normal NOT DETECTED [facility] Comment on above: Performed By: #### C MP, TSH #### [facility] [address] [place] [address] Dr. Kalie Rodas Coronavirus OC43 Not detected Normal NOT DETECTED [facility] Comment on above: Performed By: #### C MP, TSH #### [facility] [address] [place] [address] Dr. Kalie Rodas Influenza A H1 2009 Not detected Normal NOT DETECTED [facility] Comment on above: Performed By: #### C MP, TSH #### [facility] [address] [place] [address] Dr. Kalie Rodas Influenza A H3 Not detected Normal NOT DETECTED [facility] Comment on above: Performed By: #### C MP, TSH #### [facility] [address] [place] [address] Dr. Kalie Rodas Influenza B Not detected Normal NOT DETECTED [facility] Comment on above: Performed By: #### C MP, TSH #### [facility] [address] [place] [address] Dr. Kalie Rodas Metapneumovirus Not detected Normal NOT DETECTED [facility] Comment on above: Performed By: #### C MP, TSH #### [facility] [address] [place] [address] Dr. Kalie Rodas Mycoplas. Pneumoniae Not detected Normal NOT DETECTED [facility] Comment on above: Performed By: #### C MP, TSH #### [facility] [address] [place] [address] Dr. Kalie Rodas Parainfluenza 1 Not detected Normal NOT DETECTED [facility] Comment on above: Performed By: #### C MP, TSH #### [facility] [address] [place] [address] Dr. Kalie Rodas Parainfluenza 2 Not detected Normal NOT DETECTED [facility] Comment on above: Performed By: #### C MP, TSH #### [facility] [address] [place] [address] Dr. Kalie Rodas Parainfluenza 3 Not detected Normal NOT DETECTED [facility] Comment on above: Performed By: #### C MP, TSH #### [facility] [address] [place] [address] Dr. Kalie Rodas Parainfluenza 4 Not detected Normal NOT DETECTED [facility] Comment on above: Performed By: #### C MP, TSH #### [facility] [address] [place] [address] Dr. Kalie Rodas Rhino/Enterovirus Not detected Normal NOT DETECTED [facility] Comment on above: Performed By: #### C MP, TSH #### [facility] [address] [place] [address] Dr. Kalie Rodas RP2 Header 1 RESPIRATORY PANEL: VIRUSES Normal [facility] Comment on above: Performed By: #### C MP, TSH #### [facility] [address] [place] [address] Dr. Kalie Rodas RP2 Header 2 RESPIRATORY PANEL: BACTERIA Normal [facility] Comment on above: Performed By: #### C MP, TSH #### [facility] [address] [place] [address] Dr. Kalie Rodas RSV Not detected Normal NOT DETECTED [facility] Comment on above: Performed By: #### C MP, TSH #### [facility] [address] [place] [address] Dr. Kalie Rodas SARS-CoV-2 (COVID-19) RNA BENTLEY+probe Ql (Unsp spec) Detected Critically abnormal NOT DETECTED [facility] Comment on above: Performed By: #### C MP, TSH #### [facility] [address] [address] [address] Kalie Rodas Follow-Upon 03-11-2022 Follow-Up [id number] Steven Walden 1960 M Date Provider Department Center 03/11/2022 RANDY ASTORGA Family History Family history unknown: Yes Level of Service:20425 [place] POSTOP FOLLOW UP VISIT RELATED TO ORIGINAL PX Reason for Visit and Comments: Follow-up [868267] [facility] Office Visiton 02-11-2022 Follow-up visit [id number] Steven Walden 1960 M Date Provider Department Center 02/11/2022 RANDY ASTORGA Family History Family history unknown: Yes Level of Service:17780 [place] POSTOP FOLLOW UP VISIT RELATED TO ORIGINAL PX (GC) Reason for Visit and Comments: Follow-up [444978] - Closed reduction on 12/29/21 small finger PIP [facility] HPon 01-16-2022 History Of Present Illness Steven Walden is a 61 y.o. male presenting with injury involving his right small finger. Past Medical History He has a past medical history of Asthma, Depression, Kidney disease, Neuropathy, and Sleep apnea. Surgical History He has a past surgical history that includes Cholecystectomy; Colonoscopy; and Nasal endoscopy. Social History He reports that he has never smoked. He has never used smokeless tobacco. No history on file for alcohol use and drug use. Family History Family History Family history unknown: Yes Allergies Patient has no known allergies. Medications Medications Prior to Admission Medication Sig Dispense Refill Last Dose allopurinol (Zyloprim) 100 mg tablet Take 1 tablet twice a day by oral route. 12/29/2021 amLODIPine (Norvasc) 10 mg tablet Take 1 tablet every day by oral route for 90 days. 12/29/2021 aspirin 81 mg EC tablet Take 1 tablet every day by oral route. 12/29/2021 atorvastatin (Lipitor) 20 mg tablet Take 1 tablet by mouth once daily for 90 days 12/29/2021 brexpiprazole (Rexulti) 0.5 mg tablet Take 1 tablet every day by oral route. 12/29/2021 dulaglutide (Trulicity) 0.75 mg/0.5 mL pen injector Inject 0.75 mg under the skin 1 (one) time per week. 12/29/2021 gabapentin (Neurontin) 300 mg capsule Take 1 capsule 3 times a day by oral route. 12/29/2021 insulin regular (HumuLIN R Regular U-100 Insuln) 100 unit/mL injection Take by injection route. 12/29/2021 at 0800 lisinopril 20 mg tablet Take 1 tablet every day by oral route. 12/29/2021 metoprolol tartrate (Lopressor) 50 mg tablet Take 1 tablet by mouth in the morning and at bedtime. 12/29/2021 mirtazapine (Remeron) 45 mg tablet Take 1 tablet every day by oral route. 12/29/2021 OLANZapine (ZyPREXA) 15 mg tablet Take 1 tablet every day by oral route. 12/29/2021 omeprazole (PriLOSEC) [address] capsule Take 1 capsule every day by oral route. 12/29/2021 spironolactone (Aldactone) 25 mg tablet Take 1 tablet by mouth in the morning. 12/29/2021 venlafaxine (Effoxor) 100 mg tablet Take 1 tablet twice a day by oral route. 12/29/2021 nitroglycerin (Nitrostat) 0.[address] 1 tablet as needed by sublingual route. Review of Systems Last Recorded Vitals No data found. Physical Exam Relevant Lab Results No results found for: NA, K, CL, CO2, BUN, CREATININE, GLUCOSE, CALCIUM, ANIONGAP, EGFR, BCR Head and neck exam: No abnormality detected RS: Normal respiratory rate with no labored breathing CV: Bilateral palpable pulses with good perfusion MSK: Swelling and minimal deformity of the right small finger with tenderness at the PIP joint. Radiographs reviewed demonstrating fracture dislocation of the PIP joint of the right small finger Relevant Imaging Results XR hand 3+ views right Narrative: History: Pain and deformity fifth digit follow-up postop EXAM: Right hand x-ray 1220 COMPARISON: December 25 Impression: IMPRESSION: External fixator anchored in the middle and proximal phalanx of the fifth finger with K wire reducing the intra-articular fracture at the base of the middle phalanx Mild degenerative change is seen Electronically signed: Sandeep Knott. Assessment/Plan Principal Problem: Finger injury, right, initial encounter Right small finger PIP joint fracture dislocation with plans to stabilize the joint with traction and application of an external fixator [facility] Office Visiton 01-09-2022 Follow-up visit [id number] Steven Walden 1960 [facility] Provider Department [place] 01/09/2022 373-RANDY SCHMIDT MPORTHO Family History Family history unknown: Yes Level of Service:00763 [place] POSTOP FOLLOW UP VISIT RELATED TO ORIGINAL PX Reason for Visit and Comments: Post-op [483] [facility] Anesthesiaon 12-29-2021 Anesthesia [id number] Steven Walden 1960 [facility] Department [place] 12/29/2021 [id number]-CYNDI BR[facility] SIL[place] Family History Family history unknown: Yes [facility] OPNOTEon 12-29-2021 OPNOTE Attestation signed by Babar Schmidt MD at 12/30/2021 7:23 AM I personally saw and examined the patient on the same date of service as resident/fellow . I discussed the findings and therapeutic plan with the resident/fellow . I agree with the documentation, except for any edits/updates below. Teaching Physician's Revisions: Orthopedic Brief Postoperative Note Procedure Date: 12/29/2021 Surgeon(s): * Babar Schmidt - Primary Lead Injection Mold Technician: Viotr Mares MD Anesthesia: Anesthesiologist: Sharon Alvarez MD Agricultural Engineering Technologist: DARVIN Johnson OR Staff: Pmp Project Manager: Brea Mensah RN Scrub Person: Keyla Chapman CST Pre-Operative Diagnosis: Right small finger proximal phalanx fracture Post-Operative Diagnosis: Right small finger proximal phalanx fracture Procedure(s) Performed: Procedure(s): PERCUATNEOUS ASSISTED CLOSED REDUCTION RIGHT SMALL FINGER AND EXTERNAl FIXATION Anesthesia Regional EBL: 1 mL Specimen(s): No specimens collected Complications: None Concerns: No concerns, see operative report Vitor Mares MD Orthopaedic Surgery, PGY-5 2:56 PM [facility] ORTHOPAEDIC SURGERY OPERATIVE REPORT Date of Surgery: 12/29/2021 Surgeon: Babar Schmidt MD Lead Injection Mold Technician: Vitor Mares MD Preoperative Diagnosis: Right small finger P2 intra-articular base fracture with joint subluxation Postoperative Diagnosis: Right small finger P2 intra-articular base fracture with joint subluxation Procedures Performed: Percutaneous assisted closed reduction of right small finger middle phalanx fracture-subluxation Right small finger external fixator application, spanning PIP joint Anesthesia: Monitored anesthesia care with regional block IV Fluids: Per anesthesia record Tourniquet Time: none Estimated Blood Loss: 1 cc Complications: none Implants: Synthes mini external fixator system with 4 associated 1.25 mm pins 0.045 inch K-wire x1 Specimens: none Intraoperative Findings: Fracture subluxation of right small finger middle phalanx base with articular involvement was noted. This was able to be closed reduced into appropriate position. Fluoroscopy demonstrated impaction of the articular surface. Overall joint congruity was restored and appropriate hardware positioning was noted at the completion of the case. Indications For Procedure: Steven Walden is a 61 y.o. male who previously sustained a fall onto his outstretched right hand on 12/24/2021. The patient presented to an outside urgent care where x-rays demonstrated a fracture of his right small finger middle phalanx with extension into the PIP joint. Due to the fracture displacement and joint incongruity, this was indicated for operative intervention. Patient was scheduled for surgery after discussing the risks, benefits, and alternatives to the procedure. He presented to the preoperative holding area on the day of surgery. Procedure Detail: The patient was met in the preoperative holding area where their identity, procedure to be performed, and correct operative site were identified. The operative site was marked with the attending's initials. The patient was taken back to the operative theater where they were placed under monitored anesthesia care with regional block without complication. The patient's right upper extremity was then prepped and draped in the usual sterile fashion. A preoperative timeout was performed, confirming the patient's identity, procedure to be performed, and correct operative site. Everyone present was in agreement. Preoperative antibiotics were administered. We began by first evaluating the fracture under fluoroscopy. It was noted that there was a slightly comminuted fracture of the small finger middle phalanx with proximal extension into the PIP joint with dorsal fragment. There was significant joint incongruity noted. Additionally, it was noted that there appeared to be some impaction of the most central aspect of the joint. We initially performed closed reduction maneuvers and noted improvement of fracture alignment, though it still was not satisfactory. We then elected to perform a percutaneous assisted reduction of the fracture. We hyperflexed the PIP joint, which afforded appropriate reduction of the dorsal fragment of the fracture. We then placed a 0.045 inch K wire in a slightly distal to proximal direction from the dorsal aspect of the finger. Once this was in appropriate position, we thenextended the PIP joint. The K wire provided a blocking effect of the dorsal fragment and this allowed the volar aspect of the fracture to reduce nicely. We then applied some additional manual longitudinal traction and noted that this provided appropriate fracture reduction with satisfactory joint congruity. We then placed four 1.25 mm threaded pins from the Synthes mini external fixator system from ulnar to radial, 2 in the proximal phalanx, and 2 in the middle phalanx. A bar was placed, traction was applied, and the clamps were tightened. Fluoroscopy obtained at this time continued to demonstrate appropriate hardware position as well as fracture reduction and joint congruity. We then cut and bent our K wire and obtained our final fluoroscopic images. Sterile dressings were applied. All counts were correct x2 at this time. The drapes were taken down and the patient was awoken from anesthesia without complication. They were transferred back to their hospital bed and taken to PACU in stable condition. Postoperative Plan: The patient will be nonweightbearing to the right upper extremity. He will leave his surgical dressings in place for approximately 2 to 3 days after which time he can remove these, may shower, and cover with dry dressing as needed. Patient would be discharged home with a short course of narcotic pain medication per protocol. The patient will follow up with Dr. Schmidt in clinic in approximately 7 to 10 days time for clinical evaluation and new x-rays of the right hand at that time. Dr. Babar Schmidt MD was present for the entirety of the elana (more content not included)... Normal [facility] POCT GLUCOSE METER UNSOLICIT ED RESULTSon 12-29-2021 Glucose [Mass/Vol] 167 mg/dL High 70-105 [facility] Comment on above: Result Comment: ngro marlin Performed By: #### L [id number] ####[facility] ([facility]AK[facility])[address] [place] [address] Glucose [Mass/Vol] 154 mg/dL High 70-105 [facility] Comment on above: Result Comment: epaw low Performed By: #### L [id number] ####[facility] ([facility])[address] [place] [address] POCT SARS-COV-2 PCRon 2021 POC SARS-COV-2 ANTIGEN Negative Normal Negative [facility] Comment on above: Result Comment: ID N OW COVID-19 assay performed on the ID NOW Instrument is a rapid molecular in vitro diagnostic test utilizing an isothermal nucleic acid amplification technology intended for the qualitative detection of nucleic acid from the SARS-CoV-2 virus in direct anterior nasal(nasal), nasopharyngeal or throat swabs from individuals who are suspected of COVID-19 by their healthcare provider within the first seven days of the onset of symptoms.Testing is limited to laboratories certified under the Clinical Laboratory Improvement Amendments of 1988 (CLIA), 42 U.S.C. ???263a,that meet the requirements to perform high, moderate, or waived complexity tests. The ID NOW COVID-19 assay is also authorized for use at the Point of Care (POC), i.e., in patient care settings operating under a CLIA Certificate of Waiver, Certificate of Compliance, or Certificate of Accreditation. Performed By: #### L [id number] ####[facility] (BEAKER)[address] [place] [address] Hospital Encounteron 09-16-2 022 Hospital Encounter [id number] Steven Walden 1960 Julia [facility] Provider Department Center 12/25/2021 None-None ASC OR GEORGEI Family History Family history unknown: Yes Normal [facility] MICROALBUMIN/ CREATININE RAT IOon 11-26-2021 Albumin, Urine 136.7 ug/mL Normal Not Estab. [facility] Comment on above: Performed By: #### M ALBCRL #### [facility] [address] [address] [address] Kalie Rodas Albumin/ Creatinine Ratio 81 mg/g creat Critically high 0-29 [facility] Comment on above: Result Comment: Norm al: 0 - 29 Moderately increased: 30 - 300 Severely increased: >300 Performed By: #### M ALBCRL #### [facility] [address] [address] [address] Kalie Rodas Creatinine, Urine 169.4 mg/dL Normal Not Estab. The [facility] Comment on above: Performed By: #### M ALBCRL #### [facility] [address] [address] [address] Kalie Rodas VIT D 25-OH LABCORPon 2021 Vitamin D, 25-Hydroxy 43.3 ng/mL Normal 30.0-100.0 [facility] Comment on above: Result Comment: Heather min D deficiency has been defined by the [place] of [employer] and an Endocrine Society practice guideline as a level of serum 25-OH vitamin D less than 20 ng/mL (1,2). The Endocrine Society went on to further define vitamin D insufficiency as a level between 21 and 29 ng/mL (2). 1. IOM ([place] [employer]). 2010. Dietary reference intakes for calcium and D. [place]: The National Academies Press. 2. Patricia MF, Arron [place], Elizabeth CARBAJAL, et al. Evaluation, treatment, and prevention of vitamin D deficiency: an Endocrine Society clinical practice guideline. JCEM. 2010; 96(7):1911-30. Performed By: #### V ITADLC #### [facility] [address] [address] [address] Kalie Rodas CBC AUTO DIFFon 11-25-2021 BASO # 0.1 103/ul Normal 0.0-0.1 [facility] Comment on above: Performed By: #### C VDTBH #### [facility] [address] [place] [address] Dr. Kalie Rodas Basophils/100 WBC (Bld) 0.6 % Normal 0.2-2.0 [facility] Comment on above: Performed By: #### C VDTBH #### [facility] [address] [place] [address] Dr. Kalie Rodas EO # 0.3 103/ul Normal 0.0-0.[address] [facility] Comment on above: Performed By: #### C VDTBH #### [facility] [address] [place] [address] Dr. Kalie Rodas Eosinophils/100 WBC (Bld) 3.1 % Normal 0.9-7.0 [facility] Comment on above: Performed By: #### C VDTBH #### [facility] [address] [place] [address] Dr. Kalie Rodas Erythrocyte distribution width (RBC) [Ratio] 13.4 % Normal 11.0-15.0 [facility] Comment on above: Performed By: #### C VDTBH #### [facility] [facility] [address] [place] [address] Dr. Kalie Rodas Hematocrit (Bld) [Volume fraction] 44.1 % Normal 42.0-54.0 [facility] Comment on above: Performed By: #### C VDTBH #### [facility] [address] [place] [address] Dr. Kalie Rodas Hemoglobin (Bld) [Mass/Vol] 15.0 g/dL Normal 14.0-18.0 [facility] Comment on above: Performed By: #### C VDTBH #### [facility] [address] [place] [address] Dr. Kalie Rodas IG # 0.05 10e3/ul Critically high 0.00-0.03 [facility] Comment on above: Performed By: #### C VDTBH #### [facility] [address] [address] [address] Kalie Rodas IG % 0.5 % Normal 0.0-0.5 [facility] Comment on above: Performed By: #### C VDTBH #### [facility] [address] [place] [address] Dr. Kalie Rodas LYMPH # 1.9 103/ul Normal 1.2-3.[address] [facility] Comment on above: Performed By: #### C VDTBH #### [facility] [address] [place] [address] Dr. Kalie Rodas Lymphocytes/100 WBC (Bld) 20.0 % Critically low 20.5-60.[address] [facility] Comment on above: Performed By: #### C VDTBH #### [facility] [address] [place] [address] Dr. Kalie Rodas MANUAL DIFF REQ NO Normal [facility] Comment on above: Performed By: #### C VDTBH #### [facility] [address] [place] [address] Dr. Kalie Rodas MCH (RBC) [Entitic mass] 31.1 pg Normal 25.9-34.[address] [facility] Comment on above: Performed By: #### C VDTBH #### [facility] [address] [place] [address] Dr. Kalie Rodas MCHC (RBC) [Mass/Vol] 34.0 g/dL Normal 29.9-35.[address] [facility] Comment on above: Performed By: #### C VDTBH #### [facility] [address] [place] [address] Dr. Kalie Rodas MCV (RBC) [Entitic vol] 91.3 fL Normal 80.0-94.[address] [facility] Comment on above: Performed By: #### C VDTBH #### [facility] [address] [place] [address] Dr. Kalie Rodas MONO # 0.8 103/ul Normal 0.3-0.[address] [facility] Comment on above: Performed By: #### C VDTBH #### [facility] [address] [place] [address] Dr. Kalie Rodas Monocytes/100 WBC (Bld) 8.4 % Normal 1.7-12.0 [facility] Comment on above: Performed By: #### C VDTBH #### [facility] [address] [place] [address] Dr. Kalie Rodas NEUT # 6.3 103/ul Normal 1.4-6.5 [facility] Comment on above: Performed By: #### C VDTBH #### [facility] [address] [place] [address] Dr. Kalie Rodas Neutrophils/100 WBC (Bld) 67.4 % Normal 43.0-75.0 [facility] Comment on above: Performed By: #### C VDTBH #### [facility] [address] [place] [address] Dr. Kalie Rodas Platelet mean volume (Bld) [Entitic vol] 9.4 fL Critically low 9.5-13.5 [facility] Comment on above: Performed By: #### C VDTBH #### [facility] [address] [place] [address] Dr. Kalie Rodas PLT 264 103/ul Normal 150-450 [facility] Comment on above: Performed By: #### C VDTBH #### [facility] [address] [place] [address] Dr. Kalie Rodas RBC 4.83 106/ul Normal 4.70-6.10 [facility] Comment on above: Performed By: #### C VDTBH #### [facility] [address] [place] [address] Dr. Kalie Rodas WBC 9.3 103/ul Normal 4.0-11.[address] [facility] Comment on above: Performed By: #### C VDTBH #### [facility] [address] [place] [address] Dr. Kalie Rodas FREE T4on 11-25-2021 Free T4 [Mass/Vol] 0.94 ng/dL Normal 0.76-1.46 [facility] Comment on above: Performed By: #### F T4 #### [facility] [address] [address] [address] Kalie Rodas LIPID PROFILEon 11-25-2021 CHOL-HDL RATIO NORM SEE BELOW Normal [facility] Comment on above: Result Comment: 3.3 - 4.4 LOW RISK 4.4 - 7.1 AVERAGE RISK 7.1 - 11.0 MODERATE RISK >11.0 HIGH RISK Performed By: #### C MP, TSH #### [facility] [address] [address] [address] Kalie Rodas Cholesterol [Mass/Vol] 179 mg/dL Normal <=200 [facility] Comment on above: Performed By: #### C MP, TSH #### [facility] [address] [place] [address] Dr. Kalie Rodas Cholesterol in HDL [Mass/Vol] 40 mg/dL Normal 40-60 [facility] Comment on above: Performed By: #### C MP, TSH #### [facility] [address] [address] [address] Kalie Rodas Cholesterol in LDL [Mass/Vol] 108.0 mg/dL Normal [facility] Comment on above: Performed By: #### C MP, TSH #### [facility] [address] [place] [address] Dr. Kalie Rodas Cholesterol.total/Chol esterol in HDL [Mass ratio] 4.5 {ratio} Normal [facility] Comment on above: Performed By: #### C MP, TSH #### [facility] [address] [address] [address] Kalie Rodas HDL NORMAL > or = 60 mg/dl - LOW CARDIOVASCULAR RISK <40 mg/dl - HIGH CARDIOVASCULAR RISK Normal [facility] Comment on above: Performed By: #### C MP, TSH #### [facility] [address] [place] [address] Dr. Kalie Rodas LDL CALC NORMAL SEE BELOW Normal [facility] Comment on above: Result Comment: <100 mg/dl OPTIMAL 100 - 129 mg/dl NEAR OR ABOVE OPTIMAL 130 - 159 mg/dl BORDERLINE HIGH 160 - 189 mg/dl HIGH >190 mg/dl VERY HIGH Performed By: #### C MP, TSH #### [facility] [address] [address] [address] Kalie Rodas Triglyceride [Mass/Vol] 155 mg/dL Critically high <=150 [facility] Comment on above: Performed By: #### C MP, TSH #### [facility] [address] [place] [address] Dr. Kalie Rodas VLDL CALC 31.0 mg/dL Normal [facility] Comment on above: Performed By: #### C MP, TSH #### [facility] [address] [place] [address] Dr. Kalie Rodas PHOSPHORUSon 11-25-2021 Phosphate [Mass/Vol] 2.5 mg/dL Critically low 2.6-4.7 [facility] Comment on above: Performed By: #### C MP, TSH #### [facility] [address] [place] [address] Dr. Kalie Rodas PROF 14(COMP METB)on 022 Albumin [Mass/Vol] 3.7 g/dL Normal 3.4-5.0 [facility] Comment on above: Performed By: #### C MP, TSH #### [facility] [address] [place] [address] Dr. Kalie Rodas Albumin/Globulin [Mass ratio] 0.9 {ratio} Normal [facility] Comment on above: Performed By: #### C MP, TSH #### [facility] [address] [place] [address] Dr. Kalie Rodas ALP [Catalytic activity/Vol] 106 U/L Normal 46-116 [facility] Comment on above: Performed By: #### C MP, TSH #### [facility] [address] [place] [address] Dr. Kalie Rodas ALT [Catalytic activity/Vol] 28 U/L Normal 16-63 [facility] Comment on above: Performed By: #### C MP, TSH #### [facility] [address] [place] [address] Dr. Kalie Rodas Anion gap [Moles/Vol] 14.9 mmol/L Normal [facility] Comment on above: Performed By: #### C MP, TSH #### [facility] [address] [address] [address] Kalie Rodas AST [Catalytic activity/Vol] 23 U/L Normal 15-37 [facility] Comment on above: Performed By: #### C MP, TSH #### [facility] [address] [address] [address] Kalie Rodas Bilirubin [Mass/Vol] 0.4 mg/dL Normal 0.2-1.0 [facility] Comment on above: Performed By: #### C MP, TSH #### [facility] [address] [address] [address] Kalie Rodas Calcium [Mass/Vol] 9.2 mg/dL Normal 8.5-10.1 [facility] Comment on above: Performed By: #### C MP, TSH #### [facility] [address] [address] [address] Kalie Rodas Chloride [Moles/Vol] 103 mmol/L Normal 98-107 [facility] Comment on above: Performed By: #### C MP, TSH #### [facility] [address] [address] [address] Kalie Rodas CO2 [Moles/Vol] 23.0 mmol/L Normal 21.0-32.0 [facility] Comment on above: Performed By: #### C MP, TSH #### [facility] [address] [address] [address] Kalie Rodas Creatinine [Mass/Vol] 1.51 mg/dL Critically high 0.70-1.30 [facility] Comment on above: Performed By: #### C MP, TSH #### [facility] [address] [address] [address] Kalie Rodas EGFR-AF PUERTO RICAN 58 mL/min/1.73m2 Critically low >=60 [facility] Comment on above: Performed By: #### C MP, TSH #### [facility] [address] [address] [address] Kalie Rodas EGFR-NON AF PUERTO RICAN 48 mL/min/1.73m2 Critically low >=60 [facility] Comment on above: Performed By: #### C MP, TSH #### [facility] [address] [place] [address] Dr. Kalie Rodas Globulin (S) [Mass/Vol] 4.3 g/dL Normal [facility] Comment on above: Performed By: #### C MP, TSH #### [facility] [address] [place] [address] Dr. Kalie Rodas Glucose [Mass/Vol] 148 mg/dL Critically high 74-106 [facility] Comment on above: Performed By: #### C MP, TSH #### [facility] [address] [place] [address] Dr. Kalie Rodas Potassium [Moles/Vol] 3.9 mmol/L Normal 3.5-5.1 [facility] Comment on above: Performed By: #### C MP, TSH #### [facility] [address] [place] [address] Dr. Kalie Rodas Protein [Mass/Vol] 8.0 g/dL Normal 6.4-8.2 [facility] Comment on above: Performed By: #### C MP, TSH #### [facility] [address] [place] [address] Dr. Kalie Rodas Sodium [Moles/Vol] 137 mmol/L Normal 136-145 [facility] Comment on above: Performed By: #### C MP, TSH #### [facility] [address] [place] [address] Dr. Kalie Rodas Urea nitrogen [Mass/Vol] 23.0 mg/dL Critically high 7.0-18.0 [facility] Comment on above: Performed By: #### C MP, TSH #### [facility] [address] [place] [address] Dr. Kalie Rodas Urea nitrogen/Creatinine [Mass ratio] 15.2 mg/mg Normal [facility] Comment on above: Performed By: #### C MP, TSH #### [facility] [address] [place] [address] Dr. Kalie Rodas TSHon 11-25-2021 TSH 1.820 uIU/mL Normal 0.358-3.740 [facility] Comment on above: Performed By: #### C MP, TSH #### [facility] [address] [place] [address] Dr. Kalie Rodas Vital Signs Date Time Vital Sign Value Performing Clinician Facility 02-22-2023 03:46-0500 Diastolic blood pressure 85 mm[Hg] [facility] 02-22-2023 03:46-0500 Heart rate 81 /min [facility] 02-22-2023 03:46-0500 Respiratory rate 20 /min [facility] 02-22-2023 03:46-0500 SaO2% (BldA) [Mass fraction] 98 % [facility] 02-22-2023 03:46-0500 Systolic blood pressure 124 mm[Hg] [facility] 02-21-2023 21:34-0500 Body height 190.5 cm [facility] 02-21-2023 21:34-0500 Body temperature 98.2 [degF] [facility] 02-21-2023 21:34-0500 Body weight 143.78 kg [facility] 02-13-2023 07:30-0500 Body temperature 98.4 [degF] [facility] 02-13-2023 07:30-0500 Diastolic blood pressure 76 mm[Hg] [facility] 02-13-2023 07:30-0500 Heart rate 73 /min [facility] 02-13-2023 07:30-0500 Respiratory rate 18 /min [facility] 02-13-2023 07:30-0500 SaO2% (BldA) [Mass fraction] 96 % [facility] 02-13-2023 07:30-0500 Systolic blood pressure 124 mm[Hg] [facility] 02-08-2023 14:53-0400 Body height 190.5 cm [facility] 02-07-2023 19:10-0400 Respiratory rate 18 /min [facility] 02-07-2023 16:04-0400 Heart rate 74 /min [facility] 02-07-2023 13:17-0400 Body height 190.5 cm [facility] 02-07-2023 13:17-0400 Body temperature 98.2 [degF] [facility] 02-07-2023 13:17-0400 Body weight 141.9 kg [facility] 02-07-2023 13:17-0400 Diastolic blood pressure 64 mm[Hg] [facility] 02-07-2023 13:17-0400 SaO2% (BldA) [Mass fraction] 100 % [facility] 02-07-2023 13:17-0400 Systolic blood pressure 128 mm[Hg] [facility] 01-23-2023 17:47-0400 Heart rate 84 /min [facility] 01-23-2023 17:44-0400 Diastolic blood pressure 90 mm[Hg] [facility] 01-23-2023 17:44-0400 Respiratory rate 18 /min [facility] 01-23-2023 17:44-0400 SaO2% (BldA) [Mass fraction] 98 % [facility] 01-23-2023 17:44-0400 Systolic blood pressure 121 mm[Hg] [facility] 01-23-2023 16:21-0400 Body height 190.5 cm [facility] 01-23-2023 16:21-0400 Body temperature 98 [degF] [facility] 01-23-2023 16:21-0400 Body weight 142.4 kg [facility] 12-21-2022 14:00-0400 Body height 190.5 cm Fani [employer] Other [employer] Other 12-21-2022 14:00-0400 Body mass index (BMI) [Ratio] 40.59 kg/m2 [employer] Other [employer] Other 12-21-2022 14:00-0400 Body temperature 96 [degF] [employer] Other [employer] Other 12-21-2022 14:00-0400 Body weight 147.33 kg Fani Dill Other [employer] Other 12-21-2022 14:00-0400 Diastolic blood pressure 87 mm[Hg] Fani Barkers Other [employer] Other 12-21-2022 14:00-0400 Respiratory rate 20 /min Fani Dill Other [employer] Other 12-21-2022 14:00-0400 SaO2% (BldA) [Mass fraction] 99 % Fani Dill Other [employer] Other 12-21-2022 14:00-0400 Systolic blood pressure 135 mm[Hg] Fani Dill Other [employer] Other 09-08-2022 11:30-0400 Diastolic blood pressure 78 mm[Hg] Gillian Batista MD Work Phone: [facility] [employer] 09-08-2022 11:30-0400 Heart rate 76 /min Gillian Batista MD Work Phone: [facility] [employer] 09-08-2022 11:30-0400 Respiratory rate 16 /min Gillian Batista MD Work Phone: [facility] 09-08-2022 11:30-0400 SaO2% (BldA) [Mass fraction] 96 % Gillian Batista MD Work Phone: [facility] [employer] 09-08-2022 11:30-0400 Systolic blood pressure 126 mm[Hg] Gillian Batista MD Work Phone: [facility] [employer] 09-08-2022 10:06-0400 Body height 190.5 cm Gillian Batista MD Work Phone: [facility] [employer] 09-08-2022 10:06-0400 Body mass index (BMI) [Ratio] 40 kg/m2 Gillian Batista MD Work Phone: [facility] [employer] 09-08-2022 10:06-0400 Body temperature 97.7 [degF] Gillian Batista MD Work Phone: [facility] [employer] 09-08-2022 10:06-0400 Body weight 145.15 kg Gillian Batista MD Work Phone: [facility] [employer] 07-08-2022 05:42-0400 Body temperature 97.9 [degF] Sachin Mckeon MD Work Phone: [facility] [employer] 07-08-2022 05:42-0400 Diastolic blood pressure 67 mm[Hg] Sachin Mckeon MD Work Phone: [facility] [employer] 07-08-2022 05:42-0400 Heart rate 64 /min Sachin Mckeon MD Work Phone: [facility] [employer] 07-08-2022 05:42-0400 Respiratory rate 18 /min Sachin Mckeon MD Work Phone: [facility] [employer] 07-08-2022 05:42-0400 SaO2% (BldA) [Mass fraction] 97 % Sachin Mckeon MD Work Phone: [facility] [employer] 07-08-2022 05:42-0400 Systolic blood pressure 131 mm[Hg] Sachin Mckeon MD Work Phone: [facility] [employer] 07-07-2022 13:22-0400 Body height 195.6 cm Sachin Mckeon MD Work Phone: [facility] [employer] 07-07-2022 13:18-0400 Body mass index (BMI) [Ratio] 37.91 kg/m2 Sachin Mckeon MD Work Phone: [facility] [employer] 07-07-2022 13:18-0400 Body weight 145 kg Sachin Mckeon MD Work Phone: [facility] 06-30-2022 07:37-0400 Body temperature 97.5 [degF] Carlyle Gilmore MD Work Phone: [facility] [employer] 06-30-2022 07:37-0400 Diastolic blood pressure 84 mm[Hg] Carlyle Gilmore MD Work Phone: [facility] [employer] 06-30-2022 07:37-0400 Heart rate 84 /min Carlyle Gilmore MD Work Phone: [facility] [employer] 06-30-2022 07:37-0400 Respiratory rate 19 /min Carlyle Gilmore MD Work Phone: [facility] [employer] 06-30-2022 07:37-0400 SaO2% (BldA) [Mass fraction] 91 % Carlyle Gilmore MD Work Phone: [facility] [employer] 06-30-2022 07:37-0400 Systolic blood pressure 126 mm[Hg] Carlyle Gilmore MD Work Phone: [facility] [employer] 06-30-2022 05:12-0400 Body mass index (BMI) [Ratio] 40.08 kg/m2 Carlyle Gilmore MD Work Phone: [facility] [employer] 06-30-2022 05:12-0400 Body weight 153.3 kg Carlyle Gilmore MD Work Phone: [facility] [employer] 06-28-2022 13:25-0400 Body height 195.6 cm Carlyle Gilmore MD Work Phone: [facility] [employer] 06-11-2022 05:55-0500 Body temperature 97.7 [degF] Sachin Mckeon MD Work Phone: [facility] [employer] 06-11-2022 05:55-0500 Diastolic blood pressure 87 mm[Hg] Sachin Mckeon MD Work Phone: [facility] [employer] 06-11-2022 05:55-0500 Heart rate 79 /min Sachin Mckeon MD Work Phone: [facility] [employer] 06-11-2022 05:55-0500 Respiratory rate 16 /min Sachin Mckeon MD Work Phone: [facility] [employer] 06-11-2022 05:55-0500 SaO2% (BldA) [Mass fraction] 93 % Sachin Mckeon MD Work Phone: [facility] [employer] 06-11-2022 05:55-0500 Systolic blood pressure 132 mm[Hg] Sachin Mckeon MD Work Phone: [facility] [employer] 06-09-2022 10:01-0500 Body mass index (BMI) [Ratio] 42.82 kg/m2 Sachin Mckeon MD Work Phone: [facility] [employer] 06-09-2022 10:01-0500 Body weight 159.49 kg Sachin Mckeon MD Work Phone: [facility] [employer] 06-05-2022 10:18-0500 Body height 193 cm Sachin Mckeon MD Work Phone: [facility] [employer] 06-04-2022 16:31-0500 Body temperature 97.7 [degF] Stefani Orlop DO Work Phone: [facility] 06-04-2022 16:31-0500 Diastolic blood pressure 95 mm[Hg] Stefani Orlop DO Work Phone: [facility] [employer] 06-04-2022 16:31-0500 Heart rate 76 /min Stefani Orlop DO Work Phone: [facility] [employer] 06-04-2022 16:31-0500 Respiratory rate 18 /min Stefani Orlop DO Work Phone: [facility] 06-04-2022 16:31-0500 SaO2% (BldA) [Mass fraction] 96 % Stefani Orlop DO Work Phone: [facility] 06-04-2022 16:31-0500 Systolic blood pressure 146 mm[Hg] Stefani Orlop DO Work Phone: [facility] [employer] 06-04-2022 11:39-0500 Body height 193 cm Stefani Orlop DO Work Phone: [facility] 06-04-2022 05:50-0500 Body mass index (BMI) [Ratio] 43.85 kg/m2 Stefani Orlop DO Work Phone: [facility] [employer] 06-04-2022 05:50-0500 Body weight 163.3 kg Stefani Orlop DO Work Phone: [facility] [employer] Encounters Encounter Date Encounter Type Care Provider Facility Start: 04-19-2023 End: 04-19-2023 ambulatory LEXIS M FINN-NOSSEK Not Available Start: 04-19-2023 End: 04-19-2023 ambulatory CATHY W LOW Not Available Start: 03-31-2023 End: 03-31-2023 ambulatory CATHY W LOW Not Available Start: 03-22-2023 End: 03-22-2023 ambulatory LEXIS M FINN-NOSSEK Not Available Start: 03-17-2023 End: 03-17-2023 ambulatory LAKISHA VIZCARRA Not Available Start: 03-08-2023 End: 03-08-2023 ambulatory DARION M JER Not Available Start: 03-01-2023 End: 03-01-2023 ambulatory CATHY W LOW Not Available Start: 02-24-2023 End: 02-24-2023 ambulatory LEXIS M FINN-NOSSEK Not Available Start: 02-21-2023 End: 02-22-2023 Emergency department patient visit Saturnino Kaur Jr Facility:[facility] Start: 02-21-2023 End: 02-22-2023 Emergency department patient visit [facility] Work Phone: Start: 02-15-2023 End: 02-15-2023 ambulatory Aziz Bakhous Other [employer] Other Start: 02-15-2023 Telephone encounter Aziz Bakhous [facility] Start: 02-07-2023 End: 02-13-2023 Evaluation and management of inpatient Darion Randle Facility:[facility] Start: 02-07-2023 End: 02-13-2023 Evaluation and management of inpatient [facility] Work Phone: Start: 02-07-2023 ambulatory NON STAFF Facility:[facility] Start: 01-24-2023 End: 01-24-2023 ambulatory Aziz Bakhous Other [employer] Other Start: 01-24-2023 Telephone encounter Aziz Bakhous [facility] Start: 01-23-2023 End: 01-23-2023 Emergency department patient visit Jessica Black Facility:[facility] Start: 01-23-2023 End: 01-23-2023 Emergency department patient visit [facility] Work Phone: Start: 12-21-2022 End: 12-21-2022 ambulatory Aziz Bakhous Other [employer] Other Start: 12-21-2022 Office outpatient vi sit 25 minutes Aziz Bakhous [facility] Start: 09-24-2022 ambulatory MYLA Tellez [facility] Start: 09-08-2022 End: 09-08-2022 [facility] Start: 09-08-2022 End: 09-08-2022 Subsequent hospital visit by physician Gillian Batista MD Work Phone: [facility] [employer] [facility] [employer] Start: 09-03-2022 End: 09-03-2022 ambulatory Aziz Bakhous Other [facility] [employer] Other Start: 09-03-2022 Telephone encounter [facility] Start: 08-23-2022 End: 08-24-2022 ambulatory FANI DILL Facility:[facility] Start: 08-09-2022 End: 08-09-2022 ambulatory [facility] Start: 08-01-2022 End: 08-02-[address] DARION RANDLE Facility:[facility] Start: 07-26-[address] DARION RANDLE Facility: [facility] Start: 07-15-2022 End: 07-19-2022 Evaluation and management of inpatient JÚNIOR RYAN [facility] Start: 07-14-2022 End: 07-15-2022 ambulatory KENDELL DIAB . Facility:[facility] Start: 06-30-2022 End: 07-08-2022 Evaluation and management of inpatient [facility] Start: 06-30-2022 End: 07-08-2022 Evaluation and management of inpatient Sachin Mckeon MD Work Phone: [facility] Acute Rehab Comment on above: Debility (Primary Dx ) Start: 06-20-2022 End: 06-30-2022 Evaluation and management of inpatient DARION RANDLE [facility] Start: 06-20-2022 End: 06-30-2022 Evaluation and management of inpatient Carlyle Gilmore MD Work Phone: [address] Onc/Med Surg Start: 06-04-2022 End: 06-11-2022 Evaluation and management of inpatient SACHIN [facility] Start: 06-04-2022 End: 06-11-2022 Evaluation and management of inpatient Sachin Mckeon MD Work Phone: [facility] Acute Rehab Comment on above: Stage 3a chronic kid nando disease (HCC) (Primary Dx); Type 2 diabetes mellitus with stage 3a chronic kidney disease, unspecified whether alf insulin use (HCC); Physical deconditioning Start: 05-28-2022 End: 06-04-2022 Evaluation and management of inpatient STEFANI AUGUSTIN [facility] Start: 05-28-2022 End: 06-04-2022 Evaluation and management of inpatient Stefani Augustin DO Work Phone: [facility] Comment on above: Acute renal failure with acute cortical necrosis (HCC) (Primary Dx); Left ureteral stone Start: 05-27-2022 End: 05-28-2022 Evaluation and management of inpatient DR LAKISHA CARRIZALES . Facility:[facility] Start: 04-16-[address] DARION RANDLE Facility: [facility] Start: 03-31-2022 End: 03-31-[address] DOCTOR HUSSEIN Facility:[facility] Start: 03-11-2022 End: 03-11-2022 ambulatory [facility] Start: 02-11-2022 End: 02-12-2022 ambulatory [facility] Start: 01-09-2022 End: 01-10-2022 ambulatory [facility] Start: 12-29-2021 End: 12-30-2021 ambulatory [facility] Start: 12-29-2021 End: 12-29-2021 ambulatory [facility] Start: 12-25-2021 End: 12-26-2021 ambulatory CITLALY FARRELLURBAN [facility] Start: 11-25-2021 End: 11-26-2021 ambulatory AVA LESLIE Facility:[facility] Start: 09-17-2016 End: 09-18-2016 Ambulatory DIONE GILLESPIE Facility:[facility] Procedures Date Procedure Procedure Detail Performing Clinician Start: 02-07-2023 Urine culture Start: 01-23-2023 Plain chest X-ray Start: 07-08-2022 Glucose blood reagent strip Sachin Mckeon MD Work Phone: Start: 07-08-2022 BASIC METABOLIC PANE L W/ REFLEX TO MG FOR LOW K Sachin Mckeon MD Work Phone: Start: 07-08-2022 Blood count complete auto&auto difrntl wbc Sachin Mckeon MD Work Phone: Start: 07-08-2022 Glucose blood reagent strip Sachin Mckeon MD Work Phone: Start: 07-07-2022 Glucose blood reagent strip Sachin Mckeon MD Work Phone: Start: 07-07-2022 Glucose blood reagent strip Sachin Mckeon MD Work Phone: Start: 07-07-2022 Glucose blood reagent strip Sachin Mckeon MD Work Phone: Start: 07-07-2022 Glucose blood reagent strip Sachin Mckeon MD Work Phone: Start: 07-06-2022 Glucose blood reagent strip Sachin Mckeon MD Work Phone: Start: 07-06-2022 Glucose blood reagent strip Sachin Mckeon MD Work Phone: Start: 07-06-2022 BASIC METABOLIC PANE L W/ REFLEX TO MG FOR LOW K Shelley Huggins MD Work Phone: Start: 07-06-2022 End: 07-06-2022 Glucose blood reagent strip Sachin jones MD Work Phone: Start: 07-05-2022 Glucose blood reagent strip Sachin Mckeon MD Work Phone: Start: 07-05-2022 Glucose blood reagent strip Sachin Mckeon MD Work Phone: Start: 07-05-2022 Glucose blood reagent strip Sachin Mckeon MD Work Phone: Start: 07-05-2022 Glucose blood reagent strip Sachin Mckeon MD Work Phone: Start: 07-04-2022 Glucose blood reagent strip Sachin Mckeon MD Work Phone: Start: 07-04-2022 Glucose blood reagent strip Sachin Mckeon MD Work Phone: Start: 07-04-2022 Glucose blood reagent strip Sachin Mckeon MD Work Phone: Start: 07-04-2022 Glucose blood reagent strip Sachin Mckeon MD Work Phone: Start: 07-03-2022 Glucose blood reagent strip Sachin Mckeon MD Work Phone: Start: 07-03-2022 Glucose blood reagent strip Sachin Mckeon MD Work Phone: Start: 07-03-2022 Glucose blood reagent strip Sachin Mckeon MD Work Phone: Start: 07-03-2022 Basic metabolic pane l calcium total Mirela Meraz MD Work Phone: Start: 07-03-2022 Glucose blood reagent strip Sachin Mckeon MD Work Phone: Start: 07-02-2022 Glucose blood reagent strip Sachin Mckeon MD Work Phone: Start: 07-02-2022 Glucose blood reagent strip Sachin Mckeon MD Work Phone: Start: 07-02-2022 Glucose blood reagent strip Sachin Mckeon MD Work Phone: Start: 07-01-2022 Glucose blood reagent strip Sachin Mckeon MD Work Phone: Start: 07-01-2022 Glucose blood reagent strip Sachin Mckeon MD Work Phone: Start: 07-01-2022 BASIC METABOLIC PANE L W/ REFLEX TO MG FOR LOW K Sachin Mckeon MD Work Phone: Start: 07-01-2022 End: 07-01-2022 Blood count complete auto&auto difrntl wbc Sachin Mckeon MD Work Phone: Start: 07-01-2022 Hepatic function panel Sachin Mckeon MD Work Phone: Start: 06-30-2022 Glucose blood reagent strip Sachin Mckeon MD Work Phone: Start: 06-30-2022 Glucose blood reagent strip Sachin Mckeon MD Work Phone: Start: 06-30-2022 Glucose blood reagent strip Love Hess MD Work Phone: Start: 06-30-2022 Basic metabolic pane l calcium total Yo Batista MD Work Phone: Start: 06-30-2022 Glucose blood reagent strip Love Hess MD Work Phone: Start: 06-29-2022 Glucose blood reagent strip Love Hess MD Work Phone: Start: 06-29-2022 Glucose blood reagent strip Love Hess MD Work Phone: Start: 06-29-2022 BASIC METABOLIC PANE L W/ REFLEX TO MG FOR LOW K Miles Mitchell MD Work Phone: Start: 06-29-2022 End: 06-29-2022 Blood count complete auto&auto difrntl wbc Miles Mitchell MD Work Phone: Start: 06-29-2022 Glucose blood reagent strip Love Hess MD Work Phone: Start: 06-29-2022 Fluoroscopy during operation Kevin Myles MD Work Phone: Start: 06-29-2022 End: 06-29-2022 URETEROSCOPY STONE REMOVAL LASER Kevin Myles MD Work Phone: Start: 06-29-2022 CALCIUM, IONIC (POC) Coral Hess MD Work Phone: Start: 06-29-2022 CREATININE W/GFR POI NT OF CARE Love Hess MD Work Phone: Start: 06-29-2022 ELECTROLYTES PLUS Willi Hess MD Work Phone: Start: 06-29-2022 Gluc bld gluc mntr d ev cleared fda spec home use Love Hess MD Work Phone: Start: 06-29-2022 Glucose blood reagent strip Jerome Simon DO Work Phone: Start: 06-28-2022 Glucose blood reagent strip Jerome Simon DO Work Phone: Start: 06-28-2022 Glucose blood reagent strip Sheyla Viveros MD Work Phone: Start: 06-28-2022 HC MISC CATH HEMODIALYSIS Meseret Ballard MD Work Phone: Start: 06-28-2022 End: 06-28-2022 Prothrombin time Gillian Batista MD Work Phone: Start: 06-28-2022 End: 06-28-2022 Basic metabolic panel calcium total Meseret Ballard MD Work Phone: Start: 06-28-2022 DIFFERENTIAL Meseret virk MD Work Phone: Start: 06-28-2022 BASIC METABOLIC PANE L W/ REFLEX TO MG FOR LOW K Meseret Ballard MD Work Phone: Start: 06-28-2022 Glucose blood reagent strip Sheyla Viveros MD Work Phone: Start: 06-27-2022 Glucose blood reagent strip Sheyla Viveros MD Work Phone: Start: 06-27-2022 Glucose blood reagent strip Sheyla Viveros MD Work Phone: Start: 06-27-2022 Glucose blood reagent strip Sheyla Viveros MD Work Phone: Start: 06-27-2022 Glucose blood reagent strip Sheyla Viveros MD Work Phone: Start: 06-27-2022 BASIC METABOLIC PANE L W/ REFLEX TO MG FOR LOW K Mane Triplett MD Work Phone: Start: 06-27-2022 Blood count complete auto&auto difrntl wbc Mane Triplett MD Work Phone: Start: 06-26-2022 Glucose blood reagent strip Sheyla Viveros MD Work Phone: Start: 06-26-2022 Glucose blood reagent strip Sheyla Viveros MD Work Phone: Start: 06-26-2022 Ct head/brain w/o co ntrast material Sheyla Viveros MD Work Phone: Start: 06-26-2022 ARTERIAL BLOOD GAS, POC Sheyla Viveros MD Work Phone: Start: 06-26-2022 Radiologic exam ches t single view Sheyla Viveros MD Work Phone: Start: 06-26-2022 Glucose blood reagent strip Sheyla Viveros MD Work Phone: Start: 06-26-2022 Glucose blood reagent strip Sheyla Viveros MD Work Phone: Start: 06-26-2022 End: 06-26-2022 Assay of magnesium Chepe Cordova DO Work Phone: Start: 06-26-2022 BASIC METABOLIC PANE L W/ REFLEX TO MG FOR LOW K Mane Triplett MD Work Phone: Start: 06-25-2022 Glucose blood reagent strip Sheyla Viveros MD Work Phone: Start: 06-25-2022 Glucose blood reagent strip Sheyla Viveros MD Work Phone: Start: 06-25-2022 Glucose blood reagent strip Sheyla Viveros MD Work Phone: Start: 06-25-2022 End: 06-25-2022 Assay of magnesium Chepe Cordova DO Work Phone: Start: 06-25-2022 BASIC METABOLIC PANE L W/ REFLEX TO MG FOR LOW K Mane Triplett MD Work Phone: Start: 06-24-2022 BASIC METABOLIC PANE L W/ REFLEX TO MG FOR LOW K Angel Frazier MD Work Phone: Start: 06-24-2022 End: 06-24-2022 Glucose blood reagent strip Sheyla Montenegro i, MD Work Phone: Start: 06-24-2022 Glucose blood reagent strip Sheyla Viveros MD Work Phone: Start: 06-24-2022 Rplcmt compl non-hernesto cvc w/o subq port/shelter advocate Angel Frazier MD Work Phone: Start: 06-24-2022 Glucose blood reagent strip Sheyla Viveros MD Work Phone: Start: 06-24-2022 End: 06-24-2022 Assay of magnesium Chepe Cordova DO Work Phone: Start: 06-24-2022 BASIC METABOLIC PANE L W/ REFLEX TO MG FOR LOW K Mane Triplett MD Work Phone: Start: 06-23-2022 Glucose blood reagent strip Sheyla Viveros MD Work Phone: Start: 06-23-2022 Glucose blood reagent strip Sheyla Viveros MD Work Phone: Start: 06-23-2022 Electrolyte panel Ace Hanson MD Work Phone: Start: 06-23-2022 Glucose blood reagent strip Sheyla Viveros MD Work Phone: Start: 06-23-2022 Glucose blood reagent strip Sheyla Viveros MD Work Phone: Start: 06-23-2022 Assay of magnesium Euge ne Cordova DO Work Phone: Start: 06-23-2022 BASIC METABOLIC PANE L W/ REFLEX TO MG FOR LOW K Mane Triplett MD Work Phone: Start: 06-23-2022 C-reactive protein Molly Scherer MD Work Phone: Start: 06-23-2022 Glucose blood reagent strip Sheyla Viveros MD Work Phone: Start: 06-22-2022 Basic metabolic pane l calcium total Adrienne Jevon Means MD Work Phone: Start: 06-22-2022 End: 06-22-2022 Ecg routine ecg w/least 12 lds i&r only Sheyla Viveros MD Work Phone: Start: 06-22-2022 Glucose blood reagent strip Sheyla Viveros MD Work Phone: Start: 06-22-2022 Glucose blood reagent strip Sheyla Viveros MD Work Phone: Start: 06-22-2022 Glucose blood reagent strip Sheyla Viveros MD Work Phone: Start: 06-22-2022 End: 06-22-2022 Basic metabolic panel calcium total Ace Hanson MD Work Phone: Start: 06-21-2022 EOSINOPHILS, URINE Eitan aorn Frazier MD Work Phone: Start: 06-21-2022 Immunofixj electroph oresis other fluids Sheyla Viveros MD Work Phone: Start: 06-21-2022 End: 06-21-2022 Basic metabolic panel calcium total Ace Hanson MD Work Phone: Start: 06-21-2022 Glucose blood reagent strip Chepe Cordova DO Work Phone: Start: 06-21-2022 Basic metabolic pane l calcium total Ace Hanson MD Work Phone: Start: 06-21-2022 Complement antigen e ach component Ace Hanson MD Work Phone: Start: 06-21-2022 Glucose blood reagent strip Chepe Cordova DO Work Phone: Start: 06-21-2022 C-reactive protein Euge ne Cordova DO Work Phone: Start: 06-21-2022 Renal function panel Eu gene Cordova DO Work Phone: Start: 06-21-2022 Glucose blood reagent strip Chepe Cordova DO Work Phone: Start: 06-20-2022 Glucose blood reagent strip Chepe Cordova DO Work Phone: Start: 06-20-2022 Glucose blood reagent strip Love Hess MD Work Phone: Start: 06-20-2022 Glucose blood reagent strip Love Hess MD Work Phone: Start: 06-20-2022 Glucose blood reagent strip Love Hess MD Work Phone: Start: 06-20-2022 Urnls dip stick/tabl et rgnt auto w/o microscopy Love Hess MD Work Phone: Start: 06-20-2022 End: 06-20-2022 Culture bacterial quanttative colony count urine Jessenia Eduardo MD Work Phone: Start: 06-20-2022 LACTATE, SEPSIS Jose Raul Stack Sharp DO Work Phone: Start: 06-20-2022 End: 06-20-2022 Basic metabolic panel calcium total Jose Raul Stack Sharp DO Work Phone: Start: 06-20-2022 Ct abdomen & pelvis w/o contrast material Jose Raul C Sharp DO Work Phone: Start: 06-20-2022 Ct head/brain w/o co ntrast material Jose Raul C Sharp DO Work Phone: Start: 06-20-2022 Radiologic exam ches t single view Jose Raul C Sharp DO Work Phone: Start: 06-20-2022 Urnls dip stick/tabl et rgnt auto w/o microscopy Jose Raul Stack Sharp DO Work Phone: Start: 06-20-2022 COVID-19, RAPID Jose Raul C Sharp DO Work Phone: Start: 06-20-2022 LACTATE, SEPSIS Jose Raul Stack Sharp DO Work Phone: Start: 06-20-2022 End: 06-20-2022 Iaadiadoo influenza Jose Raul Stack Sharp DO Work Phone: Start: 06-20-2022 End: 06-20-2022 CULTURE, BLOOD 1 Jose Raul Stack Sharp DO Work Phone: Start: 06-20-2022 Ecg routine ecg w/le ast 12 lds trcg only w/o i&r Jose Raul Stack Sharp DO Work Phone: Start: 06-11-2022 Glucose blood reagent strip Sachin Mckeon MD Work Phone: Start: 06-11-2022 Glucose blood reagent strip Sachin Mckeon MD Work Phone: Start: 06-10-2022 Glucose blood reagent strip Sachin Mckeon MD Work Phone: Start: 06-10-2022 Glucose blood reagent strip Sachin Mckeon MD Work Phone: Start: 06-10-2022 Basic metabolic pane l calcium total Marcus Yepez MD Work Phone: Start: 06-10-2022 Glucose blood reagent strip Sachin Mckeon MD Work Phone: Start: 06-10-2022 Glucose blood reagent strip Sachin Mckeon MD Work Phone: Start: 06-09-2022 Glucose blood reagent strip Sachin Mckeon MD Work Phone: Start: 06-09-2022 Quantitation drug no t elsewhere specified Kathy Pimentel MD Work Phone: Start: 06-09-2022 Glucose blood reagent strip Sachin Mckeon MD Work Phone: Start: 06-09-2022 Glucose blood reagent strip Sachin Mckeon MD Work Phone: Start: 06-09-2022 Glucose blood reagent strip Sachin Mckeon MD Work Phone: Start: 06-08-2022 Glucose blood reagent strip Sachin Mckeon MD Work Phone: Start: 06-08-2022 Glucose blood reagent strip Sachin Mckeon MD Work Phone: Start: 06-08-2022 Glucose blood reagent strip Sachin Mckeon MD Work Phone: Start: 06-08-2022 Glucose blood reagent strip Sachin Mckeon MD Work Phone: Start: 06-07-2022 Glucose blood reagent strip Sachin Mckeon MD Work Phone: Start: 06-07-2022 Glucose blood reagent strip Sachin Mckeon MD Work Phone: Start: 06-07-2022 Glucose blood reagent strip Sachin Mckeon MD Work Phone: Start: 06-07-2022 Glucose blood reagent strip Sachin Mckeon MD Work Phone: Start: 06-06-2022 Glucose blood reagent strip Sachin Mckeon MD Work Phone: Start: 06-06-2022 Glucose blood reagent strip Sachin Mckeon MD Work Phone: Start: 06-06-2022 Glucose blood reagent strip Sachin Mckeon MD Work Phone: Start: 06-06-2022 Glucose blood reagent strip Sachin Mckeon MD Work Phone: Start: 06-05-2022 Glucose blood reagent strip Sachin Mckeon MD Work Phone: Start: 06-05-2022 Glucose blood reagent strip Sachin Mckeon MD Work Phone: Start: 06-05-2022 Glucose blood reagent strip Sachin Mckeon MD Work Phone: Start: 06-05-2022 BASIC METABOLIC PANE L W/ REFLEX TO MG FOR LOW K Sachin Mckeon MD Work Phone: Start: 06-05-2022 Blood count complete auto&auto difrntl wbc Sachin Mckeon MD Work Phone: Start: 06-05-2022 Hepatic function panel Sachin Mckeon MD Work Phone: Start: 06-05-2022 Glucose blood reagent strip Sachin Mckeon MD Work Phone: Start: 06-04-2022 Glucose blood reagent strip Sachin Mckeon MD Work Phone: Start: 06-04-2022 Glucose blood reagent strip Rosales Singh MD Work Phone: Start: 06-04-2022 Glucose blood reagent strip Rosales Singh MD Work Phone: Start: 06-04-2022 Glucose blood reagent strip Rosales Singh MD Work Phone: Start: 06-04-2022 Basic metabolic pane l calcium total Rosales Singh MD Work Phone: Start: 06-03-2022 Glucose blood reagent strip Rosales Singh MD Work Phone: Start: 06-03-2022 Glucose blood reagent strip Rosales Singh MD Work Phone: Start: 06-03-2022 Basic metabolic pane l calcium total Rosales Singh MD Work Phone: Start: 06-03-2022 Glucose blood reagent strip Rosales Singh MD Work Phone: Start: 06-03-2022 Glucose blood reagent strip Rosales Singh MD Work Phone: Start: 06-03-2022 Glucose blood reagent strip Rosales Singh MD Work Phone: Start: 06-03-2022 Glucose blood reagent strip Rosales Singh MD Work Phone: Start: 06-02-2022 Glucose blood reagent strip Rosales Singh MD Work Phone: Start: 06-02-2022 Glucose blood reagent strip Rosales Singh MD Work Phone: Start: 06-02-2022 End: 06-02-2022 Glucose blood reagent strip Rosales bowie MD Work Phone: Start: 06-02-2022 Mri brain brain stem w/o contrast material Rosales Singh MD Work Phone: Start: 06-02-2022 Glucose blood reagent strip Rosales Singh MD Work Phone: Start: 06-02-2022 End: 06-02-2022 Glucose blood reagent strip Rosales bowie MD Work Phone: Start: 06-02-2022 Glucose blood reagent strip Rosales Singh MD Work Phone: Start: 06-02-2022 BASIC METABOLIC PANE L W/ REFLEX TO MG FOR LOW K Yesenia Espino APRN - [employer] HEL[employer] Work Phone: Start: 06-02-2022 End: 06-02-2022 Blood count complete automated Yesenia Espino APRN - [employer] HEL[employer] Work Phone: Start: 06-01-2022 Glucose blood reagent strip Rosales Singh MD Work Phone: Start: 06-01-2022 Glucose blood reagent strip Rosales Singh MD Work Phone: Start: 06-01-2022 Glucose blood reagent strip Rosales Singh MD Work Phone: Start: 06-01-2022 Glucose blood reagent strip Rosales Singh MD Work Phone: Start: 06-01-2022 Glucose blood reagent strip Rsoales Singh MD Work Phone: Start: 06-01-2022 End: 06-01-2022 Glucose blood reagent strip Rosales bowie MD Work Phone: Start: 06-01-2022 BASIC METABOLIC PANE L W/ REFLEX TO MG FOR LOW K Yesenia Espino SCREWMAKER AUTOMATIC - [employer] HEL[employer] Work Phone: Start: 06-01-2022 Blood count complete automated Yesenia Espino APRN - [employer] HEL[employer] Work Phone: Start: 06-01-2022 Glucose blood reagent strip Rosales Singh MD Work Phone: Start: 06-01-2022 End: 06-01-2022 Glucose blood reagent strip Rosales bowie MD Work Phone: Start: 06-01-2022 Glucose blood reagent strip Rosales Singh MD Work Phone: Start: 05-31-2022 End: 06-01-2022 Glucose blood reagent strip Rosales bowie MD Work Phone: Start: 05-31-2022 Glucose blood reagent strip Rosales Singh MD Work Phone: Start: 05-31-2022 End: 05-31-2022 Glucose blood reagent strip Rosales bowie MD Work Phone: Start: 05-31-2022 Glucose blood reagent strip Rosales Singh MD Work Phone: Start: 05-31-2022 Glucose blood reagent strip Rosales Singh MD Work Phone: Start: 05-31-2022 BASIC METABOLIC PANE L W/ REFLEX TO MG FOR LOW K Yesenia Espino SCREWMAKER AUTOMATIC - [employer] HEL[employer] Work Phone: Start: 05-31-2022 End: 05-31-2022 Blood count complete automated Yesenia Espino APRN - [employer] HEL[employer] Work Phone: Start: 05-30-2022 Glucose blood reagent strip Stefani Augustin DO Work Phone: Start: 05-30-2022 Glucose blood reagent strip Rosales Singh MD Work Phone: Start: 05-30-2022 Electrolyte panel Monique Triplett MD Work Phone: Start: 05-30-2022 Glucose blood reagent strip Stefani Augustin DO Work Phone: Start: 05-30-2022 Electrolyte panel Monique Triplett MD Work Phone: Start: 05-30-2022 Glucose blood reagent strip Stefani J Fernandolop DO Work Phone: Start: 05-30-2022 Assay of magnesium Parminder Babb MD Work Phone: Start: 05-29-2022 Electrolyte panel Monique Triplett MD Work Phone: Start: 05-29-2022 Glucose blood reagent strip Stefani J Orlop DO Work Phone: Start: 05-29-2022 Glucose blood reagent strip Stefani J Orlop DO Work Phone: Start: 05-29-2022 Ecg routine ecg w/le ast 12 lds trcg only w/o i&r Yesenia Espino SCREWMAKER [employer]ATIC - [employer] Work Phone: Start: 05-29-2022 Glucose blood reagent strip Stefani J Orlop DO Work Phone: Start: 05-29-2022 Glucose blood reagent strip Stefani J Orlop DO Work Phone: Start: 05-29-2022 Hemoglobin glycosylated a1c Yesenia Espino SCREWMAKER [employer]ATIC - [employer] HEL[employer] Work Phone: Start: 05-29-2022 Radiologic exam ches t single view Yesenia Espino SCREWMAKER [employer]OMATIC - [employer] HEL[employer] Work Phone: Start: 05-28-2022 Us retroperitoneal r eal time w/image complete Mirela Babb MD Work Phone: Start: 05-28-2022 End: 05-28-2022 Assay of parathormone Mane Bowie Work Phone: Start: 05-28-2022 Complement antigen e ach component Mane Triplett MD Work Phone: Start: 05-28-2022 IMMUNOFIXATION SERUM PROFILE Mane Triplett MD Work Phone: Start: 05-28-2022 Culture bacterial quanttative colony count urine Stefani J Orlop DO Work Phone: Start: 05-28-2022 Fluoroscopy during operation Kevin Myles MD Work Phone: Start: 05-28-2022 End: 05-28-2022 Creatinine other source Yesenia Seay [employer] HELPER Work Phone: Start: 05-28-2022 End: 05-28-2022 CYSTOSCOPY URETERAL STENT INSERTION Kevin Myles MD Work Phone: Start: 05-28-2022 End: 05-28-2022 Culture bacterial quanttative colony count urine Yesenia Seay [employer] HELPER Work Phone: Start: 05-28-2022 CULTURE, BLOOD 1 Beba Gonzáles PA-C Work Phone: Start: 05-28-2022 End: 05-28-2022 Assay of magnesium Mirela Babb MD Work Phone: Start: 03-11-2022 Follow-up visit Follow-up ELLIS BROWNE Start: 06-09-2018 Colonoscopy Stefani Or lop DO Work Phone: Plan of Treatment Date Care Activity Detail Author Start: 06-09-2028 Screening for malignant neoplasm of [facility] Start: 07-20-2023 Hemoglobin A1c measurement A1C test (Diabetic or Prediabetic) [facility] Start: 06-11-2023 GFR test (Diabetes, CKD 3-4, OR last GFR 15-59) GFR test (Diabetes, CKD 3-4, OR last GFR 15-59) [facility] Start: 06-04-2023 GFR test (Diabetes, CKD 3-4, OR last GFR 15-59) GFR test (Diabetes, CKD 3-4, OR last GFR 15-59) [facility] Start: 05-30-2023 Hemoglobin A1c measurement [facility] [employer] Start: 02-22-2023 Bacteria identified in Urine by Culture Urine Culture [facility] Start: 02-22-2023 CT Abdomen and Pelvi s WO contrast [facility] Start: 02-22-2023 CT of abdomen and pelvis without contrast CT abdomen pelvis wo con [facility] Start: 02-13-2023 [facility] Start: 02-07-2023 Hospital admission [facility] Start: 02-07-2023 Bacteria identified in Urine by Culture [facility] Start: 11-09-2022 Influenza vaccination Flu vacc ine (Season Ended) [facility] Start: 08-30-2022 End: 08-30-2022 Patient encounter procedure 08/30/2022 Office Visit Physical [place] [address] [place] [id number] [facility] Start: 08-30-2022 End: 08-30-2022 ambulatory [facility] Start: 08-19-2022 End: 08-19-2022 ambulatory [facility] Start: 08-19-2022 End: 08-19-2022 Patient encounter procedure 08/19/2022 Office Visit Urology Kevin Myles MD [address] [facility] [facility], [address] [place] [address] [facility] Start: 08-09-2022 End: 08-09-2022 ambulatory [facility] Start: 08-09-2022 End: 08-09-2022 Patient encounter procedure 08/09/2022 Office Visit Neurology Kayli Preciado MD [address] [facility] [address] [facility] [address] [place] [address] [facility] Start: 08-03-2022 End: 08-03-2022 ambulatory [facility] Start: 08-03-2022 End: 08-03-2022 Patient encounter procedure 08/03/2022 Office Visit Nephrology Mane Triplett MD [address] [place] [address] [facility] Start: 06-15-2022 End: 06-15-2022 Admission to same day surgery center 06/15/2022 Surgery IP Unit Kevin Myles MD [address] [facility] [facility], [address] [place] [address] HOLMIUM, CYSTOSCOPY, URETEROSCOPY, STENT EXCHANGE [facility] OR Comment on above: HOLMIUM, CYSTOSCOPY, URETEROSCOPY, STENT EXCHANGE Start: 06-15-2022 End: 06-15-2022 Cysto/uretero w/lithotripsy &indwell stent insrt URETEROSCOPY STONE REMOVAL LASER Ureteral stone 06/15/2022 8:00 AM [facility] Start: 06-15-2022 Subsequent hospital visit by physician 06/15/2022 Hospital Encounter IP Unit Kevin Myles MD [address] [facility], [address] [place] [address] [facility] [place] Start: 06-14-2022 End: 06-10-2023 Basic metabolic 2000 panel - Serum or Plasma Basic Metabolic Panel Lab Routine Type 2 diabetes mellitus with stage 3a chronic kidney disease, unspecified whether alf insulin use (HCC) Expected: 06/14/2022, Expires: 06/10/2023 [facility] Work Phone: Comment on above: Expected: 06/14/2022 , Expires: 06/10/2023 Start: 11-09-2021 Influenza vaccination Flu vaccine (# 1) [facility] Start: 11-09-2021 [facility] Start: 10-30-2020 COVID-19 Vaccine (2 - Booster for [place] series) COVID-19 Vaccine (2 - Booster for [place] series) [facility] Start: 10-30-2020 [facility] Start: 01-20-2012 Shingles vaccine (1 of 2) Shingles vaccine (1 of 2) [facility] Start: 01-20-2012 [facility] Start: 2007 Screening for malignant neoplasm of colon [facility] [employer] Start: 1982 Hepatitis B vaccine (1 of 3 - Risk Dialysis 4-dose series) Hepatitis B vaccine (1 of 3 - Risk Dialysis 4-dose series) [facility] [employer] Start: 1982 [facility] Start: 1981 DTaP/Tdap/Td vaccine (1 - Tdap) DTaP/Tdap/Td vaccine (1 - Tdap) [facility] Start: 1981 Shingles vaccine (1 of 2) Shingles vaccine (1 of 2) [facility] [employer] Start: 1981 [facility] [employer] Start: 01-20-1980 Glaucoma screening [facility] Start: 01-20-1980 Hepatitis C screening Hepatitis C sc reen [facility] [employer] Start: 01-20-1980 Urine screening for protein Diabetic Alb to Cr ratio (uACR) test [facility] [employer] Start: 1977 HIV screening [facility] [employer] Start: 1974 Depression Monitoring Depression Mon itoring [facility] [employer] Start: 1974 Depression Screen Depression Screen [facility] [employer] Start: 1974 [facility] [employer] Start: 01-20-1972 Diabetic foot examination [facility] [employer] Start: 01-20-1972 Lipid panel [facility] [employer] Start: 01-20-1968 Pneumococcal 0-64 years Vaccine (1 - PCV) Pneumococcal 0-64 years Vaccine (1 - PCV) [facility] Start: 01-20-1968 [facility] [employer] Adult NIV/Positive Airway Pressure [facility] [employer] Work Phone: Adult NIV/Positive Airway Pressure Adult NIV/Positive Airway Pressure Respiratory Care Routine Every 4hr until discontinued starting 06/30/2022 [facility] [employer] Work Phone: Comment on above: Every 4hr until disc ontinued starting 06/30/2022 Bacteria identified in Urine by Culture [facility] End: 07-01-2022 Basic metabolic 2000 panel - Serum or Plasma Basic Metabolic Panel Lab Routine Acute renal failure with acute cortical necrosis (HCC) Once a week for 3 Occurrences starting 06/03/2022 until 07/01/2022 [employer] Phone: Comment on above: Once a week for 3 Oc currences starting 06/03/2022 until 07/01/2022 End: 07-22-2022 Basic Metabolic Panel w/ Reflex to MG Basic Metabolic Panel w/ Reflex to MG Lab Routine Weekly for 4 Occurrences starting 07/01/2022 until 07/22/2022, 2 completed [employer] Phone: Comment on above: Weekly for 4 Occurre nces starting 07/01/2022 until 07/22/2022, 2 completed End: 07-27-2022 Basic Metabolic Panel w/ Reflex to MG Basic Metabolic Panel w/ Reflex to MG Lab Routine Weekly for 4 Occurrences starting 07/06/2022 until 07/27/2022, 1 completed [employer] Phone: Comment on above: Weekly for 4 Occurre nces starting 07/06/2022 until 07/27/2022, 1 completed End: 07-31-2022 Basic Metabolic Panel w/ Reflex to MG Basic Metabolic Panel w/ Reflex to MG Lab Routine Weekly for 4 Occurrences starting 07/10/2022 until 07/31/2022 [employer] Phone: Comment on above: Weekly for 4 Occurre nces starting 07/10/2022 until 07/31/2022 End: 07-22-2022 CBC W Auto Differential panel - Blood CBC auto differential Lab Routine Weekly for 4 Occurrences starting 07/01/2022 until 07/22/2022, 2 completed [employer] Phone: Comment on above: Weekly for 4 Occurre nces starting 07/01/2022 until 07/22/2022, 2 completed Continuous pulse oximetry Pulse oximetry, continuous Respiratory Care Routine Every 4hr until discontinued starting 05/29/2022 [employer] Phone: Comment on above: Every 4hr until disc ontinued starting 05/29/2022 Continuous pulse oximetry Pulse oximetry, continuous Respiratory Care Routine Every 4hr until discontinued starting 06/30/2022 [employer] Phone: Comment on above: Every 4hr until disc ontinued starting 06/30/2022 Glucose [Mass/volume ] in Serum or Plasma [employer] Phone: Comment on above: 4X Daily (AC & HS) u ntil discontinued starting 05/29/2022 As Needed until disc ontinued starting 05/29/2022 Glucose [Mass/volume ] in Serum or Plasma [employer] Phone: Comment on above: 4X Daily (AC & HS) u ntil discontinued starting 06/04/2022 As Needed until disc ontinued starting 06/04/2022 Glucose [Mass/volume ] in Serum or Plasma [employer] Phone: Glucose [Mass/volume ] in Serum or Plasma [employer] Phone: Comment on above: 4X Daily (AC & HS) u ntil discontinued starting 06/30/2022 As Needed until disc ontinued starting 06/30/2022 End: 06-28-2022 Hemodialysis [facility] Work Phone: Hemodialysis Hemodialysis Radha lysis Routine Once per day on Tueu Sat until discontinued starting 07/03/2022 [employer] Phone: Comment on above: Once per day on Tueu Sat until discontinued starting 07/03/2022 End: 06-24-2022 Hemodialysis inpatient [employer] Phone: End: 06-25-2022 Hemodialysis inpatient [employer] Phone: End: 06-29-2022 Hemodialysis inpatient [employer] Phone: Home BIPAP or CPAP Home BIPAP or CPAP Respiratory Care Routine Daily until discontinued starting 05/31/2022 [employer] Phone: Comment on above: Daily until disconti nued starting 05/31/2022 Home BIPAP or CPAP Home BIPAP or CPAP Respiratory Care Routine Daily until discontinued starting 06/05/2022 [employer] Phone: Comment on above: Daily until disconti nued starting 06/05/2022 End: 05-28-2022 Insert/Change Carballo Catheter Insert/Change Carballo Catheter Procedure STAT One Time for 1 Occurrences starting 05/28/2022 until 05/28/2022 [employer] Phone: Comment on above: One Time for 1 Occur rences starting 05/28/2022 until 05/28/2022 Intermittent pulse oximetry Pulse Oximetry Spot Check Respiratory Care Routine As Needed until discontinued starting 05/28/2022 [employer] Phone: Comment on above: As Needed until disc ontinued starting 05/28/2022 Intermittent pulse oximetry Pulse Oximetry Spot Check Respiratory Care Routine As Needed until discontinued starting 06/04/2022 [employer] Phone: Comment on above: As Needed until disc ontinued starting 06/04/2022 End: 06-20-2022 Intermittent pulse oximetry [employer] Phone: Intermittent pulse oximetry Pulse Oximetry Spot Check Respiratory Care Routine As Needed until discontinued starting 06/30/2022 [employer] Phone: Comment on above: As Needed until disc ontinued starting 06/30/2022 End: 07-02-2022 Intermittent pulse oximetry Pulse Oximetry Spot Check Respiratory Care Routine One Time for 1 Occurrences starting 07/02/2022 until 07/02/2022 [employer] Phone: Comment on above: One Time for 1 Occur rences starting 07/02/2022 until 07/02/2022 End: 09-08-2022 IR REMOVE TUNNELED CVAD WO SQ PORT/PUMP IR REMOVE TUNNELED CVAD WO SQ PORT/PUMP Imaging Routine Once for 1 Occurrences starting 09/08/2022 until 09/08/2022 [employer] Phone: Comment on above: Once for 1 Occurrenc es starting 09/08/2022 until 09/08/2022 Nasal Cannula Oxygen Nasal Cannu la Oxygen Respiratory Care Routine Daily until discontinued starting 05/29/2022 [employer] Phone: Comment on above: Daily until disconti nued starting 05/29/2022 Nasal Cannula oxygen Nasal Cannu la oxygen Respiratory Care Routine As Needed until discontinued starting 06/04/2022 [employer] Phone: Comment on above: As Needed until disc ontinued starting 06/04/2022 Nasal Cannula oxygen Nasal Cannu la oxygen Respiratory Care Routine Daily until discontinued starting 06/30/2022 [employer] Phone: Comment on above: Daily until disconti nued starting 06/30/2022 Oxygen therapy [Minimum Data Set] Initiate Oxygen Therapy Protocol Respiratory Care Routine As Needed until discontinued starting 05/28/2022 [employer] Phone: Comment on above: As Needed until disc ontinued starting 05/28/2022 Oxygen therapy [Minimum Data Set] [employer] Phone: Comment on above: As Needed until disc ontinued starting 06/04/2022 Daily until disconti nued starting 06/04/2022 Oxygen therapy [Minimum Data Set] [employer] Phone: Oxygen therapy [Minimum Data Set] Initiate Oxygen Therapy Protocol Respiratory Care Routine Daily until discontinued starting 06/30/2022 [employer] Phone: Comment on above: Daily until disconti nued starting 06/30/2022 Oxygen therapy [Minimum Data Set] Initiate Oxygen Therapy Protocol Respiratory Care Routine As Needed until discontinued starting 07/02/2022 [employer] Phone: Comment on above: As Needed until disc ontinued starting 07/02/2022 Patient Education [facility] Work Phone: Patient referral [facility] Work Phone: End: 06-29-2022 POCT POTASSIUM SOM JO [facility] Work Phone: End: 06-30-2022 POCT POTASSIUM POCT POTASSIUM Point of Care Testing Routine One Time for 1 Occurrences starting 06/30/2022 until 06/30/[address] [facility] [employer] Work Phone: Comment on above: One Time for 1 Occur rences starting 06/30/2022 until 06/30/2022 Spirometry panel Incentive adrianna metry Respiratory Care Routine As Needed until discontinued starting 06/04/2022 SOM EUDOWEBCHANDRA [employer] Work Phone: Comment on above: As Needed until disc ontinued starting 06/04/2022 Spirometry panel Incentive adrianna metry Respiratory Care Routine As Needed until discontinued starting 06/30/2022 SOM [employer] [facility] [employer] Work Phone: Comment on above: As Needed until disc ontinued starting 06/30/2022 Stone Analysis 3D FUTURE VISION II JENNIFER [facility] [employer] Work Phone: Immunizations Immunization Date Immunization Notes Care Provider Sarahi shea 02-09-2023 influenza, injectabl e, quadrivalent, preservative free [facility] Payers Date Payer Category Payer [facility] [id number] 2022 Self-pay 2022 Medicaid [id number] 1962 Unknown [id number] 2.16.8 40.1.511516.3.579.2.176 1962 Unknown [id number] 2.16.8 40.1.938492.3.579.2.176 1962 Unknown [id number] 2.16. 840.1.851017.3.579.2.175 1962 Unknown [id number] 2.16. 840.1.068144.3.579.2.175 1962 Unknown [id number] 2.16. 840.1.186444.3.579.2.175 1962 Unknown [id number] 2.16.84 0.1.705697.3.579.2.593 1962 Unknown [id number] 2.16.84 0.1.407730.3.579.2.593 1962 Unknown [id number] 2.16.84 0.1.997701.3.579.2.593 1962 Unknown [id number] 2.16.84 0.1.323470.3.579.2.593 1962 Unknown [id number] 2.16.84 0.1.476357.3.579.2.593 1962 Unknown [id number] 2.16.84 0.1.511504.3.579.2.593 1962 Unknown [id number] 2.16.84 0.1.951202.3.579.2.593 1962 Unknown [id number] 2.16.84 0.1.308398.3.579.2.593 1962 Unknown [id number] 2.16.84 0.1.301565.3.579.2.593 1962 Unknown [id number] 2.16.84 0.1.096306.3.579.2.593 1962 Unknown [id number] 2.16.84 0.1.007221.3.579.2.593 1962 Unknown [id number] 2.16.8 40.1.891261.3.579.2.173 1962 Unknown [id number] 2.16.84 0.1.208993.3.579.2.1259 1962 Unknown [id number] 2.16.84 0.1.552024.3.579.2.1259 1962 Unknown [id number] 2.16.840 .1.420042.3.579.2.1259 1962 Unknown [id number] 2.16.840 .1.650441.3.579.2.1259 1962 Unknown [id number] 2.16.840 .1.332920.3.579.2.1259 1962 Unknown [id number] 2.16.840 .1.945826.3.579.2.1259 1962 Unknown [id number] 2.16.840 .1.634070.3.579.2.1259 1962 Unknown [id number] 2.16.840 .1.576964.3.579.2.1259 1959 Unknown [id number] Unknown [id number] Unknown [id number] 2.16.8 40.1.961198.3.579.2.531 Unknown [id number] 2.16.8 40.1.526575.3.579.2.531 Unknown [id number] 2.16.8 40.1.489160.3.579.2.531 Unknown [id number] 2.16.8 40.1.335528.3.579.2.531 Social History Date Type Detail Facility Start: 05-29-2022 End: 02-22-2023 Tobacco smoking status [facility] Never smoked tobacco [facility]IA[facility] Start: 05-29-2022 Tobacco use and exposure Smokeless tobacco non-user [employer] Phone: Start: 05-31-2022 End: 09-08-2022 Alcohol intake Current drinker of alcohol (finding) [employer] Phone: Start: 05-28-2022 History SDOH Alcohol Frequency 2 [employer] Phone: Start: 05-29-2022 Alcohol Comment less than 6 be ers annually [employer] Phone: Start: 1960 Sex Assigned At Not on file B ON [employer] Phone: Start: 05-18-2022 End: 07-02-2022 Exposure to SARS-CoV-2 (event) Not sure BON [employer] Phone: Sex Assigned At Sex Assigned At Bir th [facility] [employer] Other Start: 1960 Sex Assigned At Male F [facility] Medical Equipment Procedure Code Equipment Code Equipment Origin al Text Equipment Identifier Dates [id number] Start: 05-28-2022 [id number] Start: 06-29-2022 Use one needle f or each insulin injection [id number] Start: 07-08-2022 Goals Date Patient Goal Desired Activity /State Functional Status Date Assessment Result Facility 02-13-2023 Functional status Patient at Baseline [facility] [employer] Work Phone: Mental Status Date Assessment Result Facility 02-13-2023 Cognitive function Cognitive Sta tus Patient at Baseline [facility] [employer] Work Phone: Clinical Notes 12-25-2021 to 02-08-2023 Note Date & Type Note Facility 02-08-2023 Hospital Discharg e instructions Additional Instructions As we discussed, your urine still looks like a UTI. We do not have a culture from your recent urinalysis available, so we are going to change the antibiotics. You did have a culture here positive for Nida (yeast) a couple of weeks ago. This is why we are adding the antifungal medication as well as the regular antibiotic. Culture should be back in 2 days. If you are having worsening symptoms, high fever, pain, vomiting, etc., please come back. You do still have a stone in your right renal pelvis (just outside your kidney), where it is not causing any apparent problems, and where it has been for some time looking at your CAT scan reports from [employer] online. This seems to be unchanged from the past. The left side shows no stones. [facility] Work Phone: 12-21-2022 Evaluation note Encounter Date Diagnosis Assessment Notes Dec, CKD (chronic kidney disease), stage IV (ICD-10 - N18.4) Patient has CKD likely from right atrophic kidney addition to possibly diabetes and obstructive nephropathy.La st creatinine is 2.6 with GFR 25 mm/minI Mild proteinuria 480 mg/g. Not on ACEI/ARB edema well controlled. will continue lasix Kep hemoglobin A1c below 7% to preserve kidney function. Avoid NSAIDs completely. I will follow-up with the patient in 4 months Dec, Acute kidney injury (ICD-10 - N17.9) Patient was admitted June 2022 with DAISY on CKD requiring hemodialysis. DAISY was contributed to obstructive nephropathy from left ureter stone. Status post cystoscopy with ureteral stent placement. Follow-up with urology clinic. The stent was removed. R IJ TC was removed Dec, Other hypotension (ICD-10 - I95.89) Will stop midodrine. BP is well controlled Dec, Type 2 diabetes mellitus with other specified complication (ICD-10 - E11.69) Patient has long history of diabetes. Keep hemoglobin A1c below 7%. Patient has been on insulin and Trulicity . Explained the patient necessity of controlling diabetes to preserve kidney function Dec, Obesity, unspecified (ICD-10 - E66.9) Advised wieght loss to preserve kidney function Dec, Anemia, unspecified type (ICD-10 - D64.9) Last hemoglobin in dialysis was 13.4 g/dL. no need for REEMA Dec, Hyperuricemia (ICD-10 - E79.0) uric acid is 7.4. slightly elevated. No gout attack. will re check UA level next visit Dec, Folate deficiency (ICD-10 - E53.8) folate level is low at 7.0. Will start folic acid supplement [employer] Other 06-16-2023 NoteSteven Walden is a pleasant 62 year old referred to Dr Glenroy Green and the [facility] in the [facility] at the [facility] for an evaluation of neurogenic orthostatic hypotension. Hx CKD dialysis 6 weeks. Type II diabetes (10 years) insulin dependant 5 years. No CAD. Cardiac catherization about five years ago Dr. Leonardo and found myocardial bridge. Continues to follow with interventional cardiology twice years. HPI: Began to experience postural dizziness in the last six month and especially with dialysis. One episode of syncope during dialysis. Continues to have near syncope/ lightheaded with standing, moving rapidly. Blood pressure is noted to be 129/85 mmhg seated. Highest SPB 140mmhg seated. Neuropathy feet/ diabetes. Evaluated by Ruthie Devine [employer], started midodrine, stopped metoprolol and helpful. Chief Complaint: Telehealth Audio/video Visit Review of Systems Cardiovascular: Positive for near-syncope. Negative for syncope. Improving with midodrine, stopping metoprolol and stopping dialysis. 60% improvement. Musculoskeletal: Positive for falls. Neurological: Positive for dizziness, light-headedness and weakness. Objective Neurological: Mental Status: Alert and oriented to person, place and time. Comments: Alert and oriented. Able to convey information. Assessment/Plan The primary encounter diagnosis was Autonomic neuropathy due to type 2 diabetes mellitus (CMS/HCC). Diagnoses of Neurogenic orthostatic hypotension (CMS/HCC) and Primary hypertension were also pertinent to this visit. 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 Patients usually have some form of pure autonomic failure (PAF). Parkinson's disease (PD) is commonly associated with nOH, but not all with nOH have PD. Another common cause of nOH is diabetes, indeed, 7-8% of both type I and type II diabetics suffer from this autonomic neuropathy. Patients typically present with severe orthostatic hypotension and the age of onset is usually over the 5th decade of life. Often the blood pressure may plummet 40 points or more from a supine or seated position. With that being said, the patient is at a high risk for injury or falls. 70% of patients may also have severe supine hypertension (SH). Thus, management can be quite challenging. Unlike a younger individual, patients with these disorders do not augment their heart rate with the orthostatic blood pressure drop, on the contrary, the HR increase is usually less than 15 bpm with standing. Some patients may require pacemaker support for their heart rate. Patients usually exhibit hypotension in the am and hypertension in the evening, thus a reversal of the normal circadian rhythm. Nocturnal polyuria is frequent due to the blood volume return to the vasculature when lying. This nighttime urination can be worrisome for falls. Many of the patients suffer from postrprandial hypotension as well. Heat, upright posture, prolonged standing, dehydration (common in the elderly) and a number of medications may contribute to the OH. Recognition of this syndrome in the elderly may be evasive. Unlike a young patient who interprets the blood pressure drop as a lightheaded, near syncope and sweating presentation, the patient with nOH may appear to be dazed, describe weakness, drop to the knees and fall with little warning. Because the blood pressure is typically taken lying or seated, the syndrome may be missed, as the blood pressure may be elevated. Unfortunately the first point of contact with these patients may be after a catastrophic fall from syncope. Patients with nOH are managed with medications which increase the blood volume (fludrocortisone, desmopressin acetate- but caution is that of edema and fluid volume overload). Peripheral vasoconstrictive agents like midodrine and droxidopa are used precautions for supine hypertension. Pyridostigmine has nice utility because it can increase standing pressure without contributing to supine hypertension. It is also a GI promotility agent which can help the chronic constipation that is characteristic of the PAF. Many patients require medication to manage the supine hypertension, and shorter acting agents are usually preferred (clonidine, captopril). The HOB should be elevated 30 degrees to help with nighttime frequent voiding and supine hypertension. Gentle recumbent reconditioning (bike, stationary pedal early morning) will help strengthen skeletal muscle support and referral to PT is helpful (more content not included)... [facility]05-31-2023 History of Present illness Narrative* Jessenia Lawrence RN - 09/08/2022 11:51 AM EDT Received to recovery per cart. Vital signs stable. No drainage noted to dressing. Discharge instructions reviewed with patient, voices understanding. Padded tegaderms sent with patient, directions given on how and when to change dressing. Dressed for home. Ambulates off department unaided, all belongings sent with patient. [facility] Phone: 1(777) 174-832605-31-2023 Hospital Discharge instructions* Discharge Instructions* Jessenia Lawrence RN - 09/08/2022 11:30 AM EDT DISCHARGE INSTRUCTIONS FOR Dialysis Catheter Removal WOUND CARE: The clear bandage may be changed after 24 hours and daily until healed. You may shower after 24 hours but keep site covered with clear dressing to keep dry. No baths or swimming for 5-7 days or until site is healed. Some patients are allergic to the dressing and notice a rash; if this happens notify your physician. After showering pat incision area dry. DIET: Resume your normal diet. ACTIVITY: You may resume your normal activity after 24 hours. No exercising, lifting heavy objects or strenuous activity for 7 days. PAIN: You may use Tylenol for pain or apply ice to the site on for 20 min each hour x 24 hours. WHEN TO CALL PHYSICIAN: Fever greater than 101.5 and chills. Swelling or severe pain in arm/leg on side of port. Bleeding, redness, drainage or swelling at or around the port. Call 911 for any shortness of breath, severe bleeding or chest pain. [facility] [employer] Phone: 1(560) 445-634905-01-2023 NoteCardiology Clinic Note Subjective Steven Walden is a 62 y.o. year old male hypertension, CKD on dialysis, type II diabetes, LAD myocardial bridging, obstructive sleep apnea, peripheral artery disease, and lower extremity cellulitis seen in follow-up. He was last seen by Deangelo Montana CNP in May 2021. He was recently started on dialysis, about a month ago and is following with nephrology in [place]. He has since developed more pronounced lightheadedness especially following dialysis. He had a syncopal event about a month ago and was hospitalized at [facility] where he had a normal carotid duplex. He has continued to experience postural lightheadedness without recurrent syncope. He denies chest pain, palpitations, or dyspnea on exertion. Patient Active Problem List Diagnosis Finger injury, right, initial encounter Acute kidney injury superimposed on CKD ([facility]) Adjustment disorder with depressed mood DAISY (acute kidney injury) ([facility]) Anxiety Atrophy of right kidney Bandemia Chest pain Chronic gouty arthritis Constipation Urinary tract obstruction by kidney stone Tremor Syncope Stage 3 chronic kidney disease ([facility]) Pyelonephritis of left kidney Pure hyperglyceridemia Primary gout Polyneuropathy due to type 2 diabetes mellitus ([facility]) Primary hypertension Orthostatic hypotension Obstructive sleep apnea syndrome Obesity Mononeuropathy of lower extremity Moderate major depression, single episode ([facility]) Migraine without aura, not refractory Metabolic acidosis Major depressive disorder, recurrent, moderate ([facility]) Major depression retirement current use of insulin ([facility]) Left ureteral stone Hyponatremia Hyperlipidemia History of hydronephrosis History of anemia of chronic disease BRITTANY (generalized anxiety disorder) ESRD (end stage renal disease) ([place]) Emphysematous cystitis Edema Dyspnea Dizziness Duodenal ulcer Disorder of nervous system due to type 2 diabetes mellitus ([place]) Diabetic neuropathic arthropathy ([place]) Diabetes mellitus type 2 in obese ([place]) Diabetes mellitus ([place]) Dependent on hemodialysis ([place]) Debility Coronary-myocardial bridge Lymphedema Diabetes mellitus due to underlying condition, uncontrolled, with hyperglycemia ([place]) Class 3 severe obesity due to excess calories with body mass index (BMI) of 40.0 to 44.9 in adult ([place]) Peripheral vascular disease ([place]) Family History Family history unknown: Yes Social History Tobacco Use Smoking status: Never Smokeless tobacco: Never Vaping Use Vaping Use: Never used Substance Use Topics Alcohol use: Never Drug use: Never HPI Mr Walden is a 62-year-old male with LAD myocardial bridging by cath in 2017, hypertension and CKD3. SHADE wears CPAP, PAD, leg cellulitis treated by vascular surgery. 06/04/2021 -Over the last 6 months he has had c/o worsening GA such as with carrying in groceries. -He has gained 10lbs in the last year. He suffers from severe depression and doesn't leave his house much. He also has c/o fatigue. He is following with his PCP for medication management. -He has chronic LE edema. -Denies CP, orthopnea, PND, dizziness/LH, syncope. Review of Systems Cardiovascular: Positive for leg swelling and syncope. Negative for chest pain, claudication, dyspnea on exertion, irregular heartbeat, near-syncope, orthopnea, palpitations and paroxysmal nocturnal dyspnea. Neurological: Positive for dizziness and light-headedness. Objective Visit Vitals BP 82/59 (BP Location: Left arm, Patient Position: Standing) Pulse 75 Ht 1.93 m (6' 4 ) Wt (!) 147 kg (323 lb) SpO2 99% BMI 39.32 kg/m??? Smoking Status Never BSA 2.81 m??? Physical Exam General: Awake, alert, good spirits. NAD Pulm: Breath sounds clear to ascultation bilaterally with no wheeze, crackles or rhonchi Cards: Regular rate and rhythm, S1, S2. No S3 or S4 gallop. Murmur: none Abd: Soft, Nontender, physiologic bowel sounds are present Extr: Lower extremity edema: trace. Skin: warm, dry, well perfused Neuro: A&Ox3, No gross deficits Allergies No Known Allergies Medications Current Outpatient Medications: acetaminophen (Tylenol) 325 mg tablet, Take 2 tablets by mouth every 6 (six) hours if needed., Disp: , Rfl: albuterol 90 mcg/actuation inhaler, Inhale 2 puffs., Disp: , Rfl: allopurinol (Zyloprim) 100 mg tablet, Take 1 tablet twice a day by oral route., Disp: , Rfl: brexpiprazole 2 mg tablet, 2 mg., Disp: , Rfl: budesonide-formoteroL (Symbicort) 80-4.5 mcg/actuation inhaler, Inhale 2 puffs., Disp: , Rfl: gabapentin (Neurontin) 300 mg capsule, Take 1 capsule 3 times a day by oral route., Disp: , Rfl: insulin glargine (Lantus) 100 unit/mL (3 mL) pen, Inject 25 Units under the skin., Disp: , Rfl: lamoTRIgine (LaMICtal) 200 mg tablet, Take 1 tablet by mouth in the morning., Disp: , Rfl: metoprolol tartra (more content not included)...[facility]05-01-2023 NotePt is here today for hypertension possible heart related issue. Review of Systems Constitutional: Positive for weight loss. Respiratory: Positive for snoring. All other systems reviewed and are negative.[facility] 07-08-2022 History of Present illness Narrative* Ernestina Steve LPN - 07/08/2022 1:01 PM EDT Patient discharged from facility. Chain Maker Machine reviewed discharge orders with patient and family member. All questions and concern addressed. Patient left with medication from pharmacy, patient to fruit picker walker. All belongings packed with patient. Patient required no assistance with getting in the vehicle. * Jeff Ramirez - 07/08/2022 12:32 PM EDT CLINICAL PHARMACY NOTE: MEDS TO BEDS Total # of Prescriptions Filled: 9 The following medications were delivered to the patient: Symbicort 80/4.5 Gabapentin 300mg Venlafaxine HCL ER 150mg Atorvastatin Calcium 20mg Propranolol HCL 20mg Allopurinol 100mg Omeprazole 40mg Lantus Solostar 100unit/ml Pen Parachute [id number] Additional Documentation: Delivered Medication to Patients Room * Ernestina Steve LPN - 07/08/2022 7:06 AM EDT Images from the original note were not included. ACUTE INPATIENT REHABILITATION DISCHARGE [facility] Patient Name: Steven Walden Patient discharged in stable condition as per order of attending physician. AVS provided by nurse at time of discharge, which includes all necessary medical information pertaining to the patients current course of illness, treatment, medications, post-discharge goals of care, and treatment preferences. Provision of Current Reconciled Medication List to Patient at Discharge Indicate the route(s) of transmission of the current reconciled medication list to the patient/family/caregiver. Paper Based (e.g. fax, copies, print outs) Availability of My Chart offered to patient as a tool for updated health record. Steps for activation discussed with patient as mentioned on AVS. Patient/responsible republican verbalize understanding of discharge plan and are in agreement with goal/plan/treatment preferences. Belongings including Glasses, Tshirt,Pants, Cellphone, Caddie Supervisor, sent with patient/responsible republican. Home medications sent home with patient/responsible republican yes Car Transfer Level of assistance required for patient transfer into vehicle: INDEPENDENT: Patient completes the activity by him/herself with no assistance from a helper High-Risk Drug Classes: Use and Indication Check if the patient is taking any medications by pharmacological classification If yes, check if there is an indication noted for all meds in the drug class Antipsychotic No If yes: indication noted? [] If no indication noted, follow up with provider for order clarification Anticoagulant Yes If yes: indication noted? [x] Antibiotic No If yes: indication noted? [] Opioid No If yes: indication noted? [] Antiplatelet No If yes: indication noted? [] Hypoglycemic (Including Insulin) Yes If yes: indication noted? [x] Pain Assessment Over the past 5 days, how much of the time has pain made it hard for you to sleep at night? Rarely or not at all Over the past 5 days, how often have you limited your participation in rehabilitation therapy sessions due to pain? Rarely or not at all Over the past 5 days, how often have you limited your day-to-day activities (excluding rehabilitation therapy session)? Rarely or not at all Special Treatments, Procedures, and Programs Check all of the following treatments, procedures, and programs that apply on admission. Cancer Treatments Chemotherapy No If Yes, Check All That Apply []IV Chemotherapy []Oral Chemotherapy [] Chemotherapy Radiation No Respiratory Therapies Oxygen Therapy No If Yes, Check All That Apply []Continuous []Intermittent []High-Concentration Suctioning No If Yes, Check All That Apply []Scheduled []As Needed Tracheostomy Care No Invasive Mechanical Ventilator (Ventilator or Respirator) No If Yes, Check All That Apply [] Non-invasive Mechanical Ventilator []BiPAP []CPAP Other IV Medications No If Yes, Check All That Apply [] IV Vasoactive Medications []IV Antibiotics []IV Anticoagulation [] IV Medications Transfusions No Dialysis Yes If Yes, Check All That Apply [x]Hemodialysis [] Dialysis IV Access Yes If Yes, Check All That Apply []Peripheral []Midline [] (PICC, tunneled, port) * Tawana Dias OT - 07/07/2022 3:41 PM EDT [facility] Acute Rehabilitation Occupational Therapy Daily Treatment Note Date: 07/07/22 Patient Name: Steven Walden Room: 2632/2632-01 Account: [id number] : 1960 (62 y.o.) Gender: male Referring Practitioner: Sachin Mckeon MD Diagnosis: 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 Additional Pertinent Hx: 62-year-old male with fall, fever and flank pain admitted for management of DAISY-has history of CKD stage III, diabetes, hypertension hyperlipidemia, obesity presented as above. 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 Cardiology-sinus tachycardia artifact due to essential tremors, no further cardiac work-up. Treatment Diagnosis: Impaired self-care status Past Medical History: has a past medical history of Anxiety, Chronic kidney disease, Congenital heart defect, Diabetes mellitus (HCC), Gout, Hyperlipidemia, Hypertension, Major depressive disorder, Morbid obesity (HCC), Neuropathy, SHADE (obstructive sleep apnea), and Peptic ulcer disease. Past Surgical History: has a past surgical history that includes Cholecystectomy (2010); Hand surgery (Right, 12/2021); Cystoscopy (Left, 05/28/2022); IR TUNNELED CVC PLACE WO SQ PORT/PUMP > 5 YEARS (06/28/2022); Cystostomy w/ stent insertion (Left, 06/29/2022); Cystoscopy (Left, 06/29/2022); and Ureter surgery (Left, 06/29/2022). Restrictions Restrictions/Precautions Restrictions/Precautions: Fall Risk, Up as Tolerated (fell 12 times over past few months per pt) Required Braces or Orthoses?: No Implants present? : (pt denies) Position Activity Restriction Other position/activity restrictions: OT PT eval and treat Vitals Subjective Subjective Subjective: slow down, don't overreach yourself. pt naming fall prevention principles , also noted correct hand placement during transfers. Objective Cognition Cognition Overall Cognitive Status: WFL Activities of Daily Living Feeding Assistance Level: Independent Grooming/Oral Hygiene Assistance Level: Independent Skilled Clinical Factors: seated sinkside to complete oral hygiene, face washing, hair combing, andshaving Upper Extremity Bathing Assistance Level: Independent Skilled Clinical Factors: seated sinkside in w/c to complete, CHG soap used, mod indep obtain set up for adls amb with RW. Lower Extremity Bathing Assistance Level: Modified independent Skilled Clinical Factors: standing sinkside to cleanse braxton area/buttocks, no loss of balance, unilateral support on sink Upper Extremity Dressing Assistance Level: Modified independent Lower Extremity Dressing Assistance Level: Modified independent Skilled Clinical Factors: underpants and pants Putting On/Taking Off Footwear Assistance Level: Modified independent Skilled Clinical Factors: pt uses figure 4 position to don/doff footies , declines TEDs Toileting Assistance Level: Modified independent Toilet Transfers Equipment: Grab bars Assistance Level: Modified independent OT scores Eating Assistance Needed: Independent CARE Score: 6 Oral Hygiene Assistance Needed: Independent CARE Score: 6 Toileting Hygiene Assistance needed: Independent CARE Score: 6 Shower/Bathe Self Assistance Needed: Independent CARE Score: 6 Upper Body Dressing Assistance Needed: Independent CARE Score: 6 Lower Body Dressing Assistance Needed: Independent CARE Score: 6 Putting On/Taking Off Footwear Assistance Needed: Independent CARE Score: 6 Toilet Transfer Assistance needed: Independent CARE Score: 6 Instrumental ADL's Instrumental ADLs: Yes Meal Prep Meal Prep Level: Walker Meal Prep Level of Assistance: Modified independent Meal Preparation: mod indep obtain set up for adls amb with RW and during room mobility am and pm, demo safe technique and no LOB even while completing advanced adls - simple homemaking and simulatedcooking tasks. Light Housekeeping Light Housekeeping Level: Walker Light Housekeeping Level of Assistance: Modified independent Light Housekeeping: mod indep obtain set up for adls amb with RW and during room mobility am and pm, demo safe technique and no LOB even while completing advanced adls - simple homemaking and simulated cooking tasks. pt practiced how to carry a plate of food across kitchen while amb with RW. Mobility Functional Mobility Device: Rolling walker Activity: To/From bathroom;Retrieve items;Transport items Assistance Level: Modified independent Skilled Clinical Factors: mod indep obtain set up for adls amb with RW and during room mobility am and pm, demo safe technique and no LOB even while completing advanced adls - simple homemaking and simulated cooking tasks. OT Exercises Exercise Treatment: pt improved RUE coordination from 43 to 31 and on L from 44 to 36. improved uniform designer strength on R from 44 to 67 and on L from 47 to 69. Dynamic Standing Balance Exercises: mod indep with RW room ambulation and pipo 7 min, 13 min and several shorter times in am and 5 min x 3 in pm. Assessment Assessment Activity Tolerance: Patient tolerated treatment well Patient Education Education Education Given To: Patient Education Provided: Fall Prevention Strategies Education Provided Comments: slow down, don't overreach yourself. pt naming fall prevention principles , also noted correct hand placement during transfers. Education Method: Verbal Barriers to Learning: None Education Outcome: Verbalized understanding;Demonstrated understanding Goals Patient Goals Patient goals : To work on my stability and endurance. That's the worst part for me Pt stated in regards to his goal for occupational therapy. Short Term Goals Time Frame for Short Term Goals: By 4-5 days Short Term Goal 1: Pt will perform upper body dressing and bathing with supervision and Good safety/met Short Term Goal 2: Pt will perform lower body dressing/bathing with SBA, using appropriate adaptivetechniques/equipment as needed/met Short Term Goal 3: Pt will perform functional transfers/mobility with SBA, using least restrictive device, and Good safety/met Short Term Goal 4: Pt will tolerate standing for 5+ minutes, participating in dynamic standing and reaching as tolerated, during self care/functional activity of choice/met Short Term Goal 5: Pt will actively partcipate in therapeutic social participation activity to facilitate peer discussion regarding coping strategies and/or feelings of loss/grief related to current medical status, to promote engagement in self care and functional activities/ 07-07-22: pt declined pa rticipation in group, pt ID self coping skills of listening to music and distraction, finding something else to occupy your time. Short Term Goal 6: Pt will actively participate in 30+ minutes of therapeutic exercise/functional activity to promote safety and independence with self care and mobility/met Short Term Goal 7: - Water And Gas Helper Goals Time Frame for Halfway Goals : By discharge Water And Gas Helper Goal 1: Pt will perform BADLs mod I, using appropriate adaptive techniques/equipment, andGood safety/met Halfway Goal 2: Pt will perform functional transfers/mobility, using least restrictive device, mod I and Good safety/met Water And Gas Helper Goal 3: Pt will tolerate standing for 10+ minutes, participating in dynamic standing and reaching as tolerated, during self care/functional activity of choice/met Halfway Goal 4: Pt will V/D use of energy conservation/work simplification techniques to increaseIND during daily routine/met Water And Gas Helper Goal 5: Pt will V/D at least three fall prevention/home safety modifications that are applicable to his daily routine and home environment/met Water And Gas Helper Goal 6: Pt will improve opening small containers during self-care tasks as evidenced by 5seconds improvement on 9 hole peg test and 5# improvement of uniform designer strength/met pt improved RUE coordination from 43 to 31 and on L from 44 to 36. improved uniform designer strength on R from 44 to 67 and on L from 47 to 69. Water And Gas Helper Goal 7: Pt will perform light housekeeping/simple meal preparation with supervision, using adaptive techniques as needed, and Good safety/ met and surpassed- mod indep. Plan Occupational Therapy Plan Times Per Week: 900 minutes between OT/PT/SOCIAL SERVICE ASSISTANT Current Treatment Recommendations: Strengthening, Balance training, ROM, Functional mobility training, Endurance training, Safety education & training, Equipment evaluation, education, & procurement, Patient/Caregiver education & training, Self-Care / ADL, Positioning, Home management training, Coordination training, Pain management 07/07/22 1521 07/07/22 1523 OT Individual Minutes Time In 0830 1302 Time Out 0930 1332 Minutes 60 30 OT Individual Minutes OT Individual Minutes Time In: 1302 Time Out: 1332 Minutes: 30 * Lisset Lockett, CHAU, LD - 07/07/2022 1:01 PM EDT Comprehensive Nutrition Assessment Type and Reason for Visit: Reassess Nutrition Recommendations/Plan: Continue crrent diet. Malnutrition Assessment: Malnutrition Status: At risk for malnutrition (Comment) (07/01/22 1603) Context: Acute Illness Nutrition Assessment: Pt receptive to diet education. Nutrition Related Findings: Edema: +1 Generalized, RLE, LLE. POC Glucose: 158-247 (07/07); K: 4.6 (07/06). Other labs and meds reviewed. Current Nutrition Intake & Therapies: Average Meal Intake: 51-75%, 76-100% ADULT DIET; Regular; 5 carb choices (75 gm/meal); Low Phosphorus (Less than 1000 mg); 1500 ml Anthropometric Measures: Height: 6' 5 (195.6 cm) [place] Body Weight (IBW): 208 lbs (95 kg) Admission Body Weight: 329 lb 5.9 oz (149.4 kg) (Method not specified) Current Body Weight: 319 lb 10.7 oz (145 kg) (07/07), 153.7 % IBW. Weight Source: Bed Scale Current BMI (kg/m2): 37.9 BMI Categories: Obese Class 2 (BMI 35.0 -39.9) Estimated Daily Nutrient Needs: Energy Requirements Based On: Formula Weight Used for Energy Requirements: Admission Energy (kcal/day): 8314-4179 based on [place]-St. Jeor with 1-1.1 factor Weight Used for Protein Requirements: [place] Protein (g/day): 124-133 basee on 1.3-1.4 gm per kg Nutrition Diagnosis: Altered nutrition-related lab values related to renal dysfunction, endocrine dysfuntion as evidenced by lab values Nutrition Interventions: Food and/or Nutrient Delivery: Continue Current Diet Nutrition Education/Counseling: Education completed Coordination of Nutrition Care: Continue to monitor while inpatient Goals: Previous Goal Met: (Goal revised) Goals: Meet at least 75% of estimated needs (with stabilization/improvment in lab values) Nutrition Monitoring and Evaluation: Behavioral-Environmental Outcomes: None Identified Food/Nutrient Intake Outcomes: Food and Nutrient Intake Physical Signs/Symptoms Outcomes: Biochemical Data, Fluid Status or Edema Discharge Planning: Too soon to determine Lisset Lockett RD, JOSE Contact: * Shelley Huggins MD - 07/07/2022 9:18 AM EDT Physical Medicine & Rehabilitation Progress Note Subjective: Steven Walden is a 62 y.o. 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 He reports doing pretty well today. He denies any acute concerns. He is looking forward to discharge tomorrow. He states that he would like to do outpatient therapy after discharge. ROS: Denies fevers, chills, sweats. No chest pain, palpitations, lightheadedness. Denies coughing, wheezing or shortness of breath. Denies abdominal pain, nausea, diarrhea or constipation. No new areas of joint pain. Denies new areas of numbness or weakness. Denies new anxiety or depression issues. No new skin problems. Rehabilitation: Physical Therapy Restrictions/Precautions: Fall Risk, Up as Tolerated (fell 12 times over past few months per pt) Implants present? : (pt denies) Other position/activity restrictions: OT PT eval and treat Bed mobility Rolling to Left: Independent Supine to Sit: Independent Sit to Supine: Independent Scooting: Stand by assistance, Independent Bed Mobility Comments: HOB flat, use of hand rail to complete bed mob. Transfers Sit to Stand: Modified independent (to RW, including low surface) Stand to Sit: Modified independent (from RW) Bed to Chair: Contact guard assistance Stand Pivot Transfers: Independent (RW) Comment: CGA with RW. Good hand placement throughout tx with all transfers. Slight decrease eccentric control noted this date with stand to sit transfers d/t increase fatigue. Pt is able to transfer from various height's this date. Ambulation Surface: Level tile Device: Rolling Walker Other Apparatus: Wheelchair follow (w/c follow for PM only, however did not need.) Assistance: Supervision Quality of Gait: hip external rotation , decreased step width, and intermittent foot clearance Gait Deviations: Slow Reyna, Decreased step height Distance: 240 ft and 2 turns Comments: no LOB , pt reports fatigue at completion More Ambulation?: Yes Occupational Therapy ADL Feeding: Setup Grooming: Stand by assistance Grooming Skilled Clinical Factors: Pt combed his hair, brushed his teeth, and shaved seated in w/c at sink. Pt initially stood at sink to brush his teeth, CGA for standing balance, however requested to sit back down due to fatigue UE Bathing: Stand by assistance UE Bathing Skilled Clinical Factors: Seated in w/c at sinkside. CHG solution used for trunk and RUE. Assist with washing/drying backside LE Bathing: Contact guard assistance LE Bathing Skilled Clinical Factors: Pt stood to wash/dry periarea and buttocks, CGA for standing balance for safety. Pt used figure four method to wash/dry B feet and lower extremities UE Dressing: Minimal assistance UE Dressing Skilled Clinical Factors: Pt able to doff shirt seated in w/c, able to thread UEs into shirt and overhead. Assist with pulling down on backside LE Dressing: Minimal assistance LE Dressing Skilled Clinical Factors: Pt doffed underwear/pants off hips standing at sink, threadedoff B feet seated in w/c. Assist doffing B socks. Pt donned L sock using modified figure four technique. Assist with donning HEATHER hose and R sock. Toileting: Contact guard assistance Toileting Skilled Clinical Factors: Per STATISTICIAN THEORETICAL report- pt able to manage clothing, CGA for standing Additional Comments: OT facilitated pt's engagement in self care tasks. Pt politely declined showering but agreeable to bathing at sinkside. Pt is limited due to fine motor deficits, weakness, and low endurance/activity tolerance, inhibiting performance of self care tasks Instrumental ADL's Instrumental ADLs: Yes Balance Sitting Balance: Supervision Standing Balance: Contact guard assistance Standing Balance Time: <60 seconds x2, 1-2 minutes x2, 2 minutes x1 Activity: functional transfers, functional mobility, self care tasks Comment: UE support throughout Functional Mobility Functional - Mobility Device: Rolling Walker Activity: To/from bathroom Assist Level: Contact guard assistance Transfers Stand Pivot Transfers: Contact guard assistance Sit to stand: Contact guard assistance Stand to sit: Contact guard assistance Transfer Comments: Minimal cues for hand placement for safety Toilet Transfers Toilet - Technique: Ambulating Equipment Used: Grab bars Toilet Transfer: Contact guard assistance Toilet Transfers Comments: Per STATISTICIAN THEORETICAL report Speech Therapy Current Medications: Current Facility-Administered Medications: heparin (porcine) injection 2,500 Units, 2,500 Units, IntraCATHeter, PRN fluticasone (FLONASE) 50 MCG/ACT nasal spray 1 spray, 1 spray, Each Nostril, Daily sodium chloride flush 0.9 % injection 5-40 mL, 5-40 mL, IntraVENous, PRN 0.9 % sodium chloride infusion, , IntraVENous, PRN ondansetron (ZOFRAN-ODT) disintegrating tablet 4 mg, 4 mg, Oral, Q8H PRN OR ondansetron (ZOFRAN) injection 4 mg, 4 mg, IntraVENous, Q6H PRN acetaminophen (TYLENOL) tablet 650 mg, 650 mg, Oral, Q6H PRN OR acetaminophen (TYLENOL) suppository 650 mg, 650 mg, Rectal, Q6H PRN anticoagulant sodium citrate 4 % injection 1.8 mL, 1.8 mL, IntraCATHeter, PRN anticoagulant sodium citrate 4 % injection 1.7 mL, 1.7 mL, IntraCATHeter, PRN albuterol sulfate HFA (PROVENTIL;VENTOLIN;PROAIR) 108 (90 Base) MCG/ACT inhaler 2 puff, 2 puff, Inhalation, Q6H PRN allopurinol (ZYLOPRIM) tablet 100 mg, 100 mg, Oral, Daily atorvastatin (LIPITOR) tablet 20 mg, 20 mg, Oral, Nightly budesonide-formoterol (SYMBICORT) 80-4.5 MCG/ACT inhaler 2 puff, 2 puff, Inhalation, BID lamoTRIgine (LAMICTAL) tablet 200 mg, 200 mg, Oral, Daily mirtazapine (REMERON) tablet 30 mg, 30 mg, Oral, Nightly pantoprazole (PROTONIX) tablet 40 mg, 40 mg, Oral, QAM AC propranolol (INDERAL) tablet 20 mg, 20 mg, Oral, TID tamsulosin (FLOMAX) capsule 0.4 mg, 0.4 mg, Oral, Daily venlafaxine (EFFEXOR XR) extended release capsule 150 mg, 150 mg, Oral, Daily insulin lispro (HUMALOG) injection vial 0-8 Units, 0-8 Units, SubCUTAneous, TID WC insulin lispro (HUMALOG) injection vial 0-4 Units, 0-4 Units, SubCUTAneous, Nightly glucose chewable tablet 16 g, 4 tablet, Oral, PRN dextrose bolus 10% 125 mL, 125 mL, IntraVENous, PRN OR dextrose bolus 10% 250 mL, 250 mL, IntraVENous, PRN glucagon (rDNA) injection 1 mg, 1 mg, IntraMUSCular, PRN dextrose 10 % infusion, , IntraVENous, Continuous PRN lidocaine (XYLOCAINE) 2 % uro-jet, , Topical, PRN oxyCODONE (ROXICODONE) immediate release tablet 5 mg, 5 mg, Oral, Q4H PRN senna (SENOKOT) tablet 8.6 mg, 1 tablet, Oral, Nightly heparin (porcine) injection 5,000 Units, 5,000 Units, SubCUTAneous, 3 times per day brexpiprazole (REXULTI) tablet 2 mg, 2 mg, Oral, Daily insulin glargine (LANTUS) injection vial 25 Units, 25 Units, SubCUTAneous, Nightly ALPRAZolam (XANAX) tablet 0.5 mg, 0.5 mg, Oral, BID PRN gabapentin (NEURONTIN) capsule 300 mg, 300 mg, Oral, Daily polyethylene glycol (GLYCOLAX) packet 17 g, 17 g, Oral, Daily senna (SENOKOT) tablet 17.2 mg, 2 tablet, Oral, Daily PRN bisacodyl (DULCOLAX) suppository 10 mg, 10 mg, Rectal, Daily PRN Objective: BP (!) 99/49 Pulse 72 Temp 98.2 F (36.8 C) Resp 18 Ht 6' 5 (1.956 m) Wt (!) 319 lb 10.7 oz (145 kg) SpO2 97% BMI 37.91 kg/m GEN: Well developed, well nourished, no acute distress HEENT: NCAT. EOM grossly intact. Hearing grossly intact. Mucous membranes pink and moist. RESP: Normal breath sounds with no wheezing, rales, or rhonchi. Respirations WNL and unlabored. CV: Regular rate and rhythm. No murmurs, rubs, or gallops. ABD: Soft, non-distended, BS+ and equal. NEURO: Alert. Speech fluent. Sensation to light touch intact in bilateral lower limbs. Tremors noted in bilateral lower limbs with strength testing. MSK: Muscle tone and bulk are normal bilaterally. Moving bilateral upper limbs with at least antigravity strength. Strength 4+/5 in bilateral lower limbs. LIMBS: Edema present in bilateral lower limbs - stable. SKIN: Warm and dry with good turgor. PSYCH: Mood WNL. Affect WNL. Appropriately interactive. Diagnostics: CBC: No results for input(s): WBC, RBC, HGB, HCT, MCV, RDW, PLT in the last 72 hours. BMP: Recent Labs 07/06/22 0613 NA 138 K 4.6 CL 101 CO2 22 BUN 66* CREATININE 4.01* GLUCOSE 191* BNP: No results for input(s): BNP in the last 72 hours. PT/INR: No results for input(s): PROTIME, INR in the last 72 hours. APTT: No results for input(s): APTT in the last 72 hours. CARDIAC ENZYMES: No results for input(s): CKMB, CKMBINDEX, TROPONINT in the last 72 hours. Invalid input(s): CKTOTAL;3 FASTING LIPID PANEL:No results found for: CHOL, HDL, TRIG LIVER PROFILE: No results for input(s): AST, ALT, ALB, BILIDIR, BILITOT, ALKPHOS in the last 72 hours. Reviewed notes from nephrology, OT, PT. 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 Nephrology following. On TTS schedule while inpatient, will be switching to MWF schedule as outpatient. Discussed with nephrology today - he will skip HD tomorrow but start HD at outpatient center on Tuesday. On 1500 ml fluid restriction. PT/OT for gait, mobility, strengthening, endurance, ADLs, and self care. Cystitis: On cefepime until 07/06 with HD. Left hydroephrosis: S/p cysto, ureteroscopy and stent removal with stone basketing by urology 06/29. HTN/HLD: On atorvastatin, propranolol SHADE: On CPAP COPD: On albuterol prn, Symbicort BID Anemia of chronic disease: Hemoglobin 11.2 on 07/03, stable. Monitoring. Morbid obesity: BMI 39.27. Dietitian to follow DM II with neuropathy: On Lantus, sliding scale, gabapentin. Depression/anxiety: Has alprazolam prn, Rexulti, Lamictal, mirtazapine, venlafaxine. Psychiatry evaluated 06/27 - recommended continued home doses and outpatient follow up Tremors: Was previously evaluated by neurology determined to be positional tremor with some cogwheel rigidity possibly attributed to side effects of medications. For outpatient neurology follow up in2-[address] Pimentel. Gout: On allopurinol Hoarseness: Flonase added on 07/02. BPH: On flomax Bowel Management: Miralax daily, senokot prn, dulcolax prn. DVT Prophylaxis: heparin, SCD's while in bed, and HEATHER's during the day Internal medicine for medical management Follow up PCP 1-2 weeks, Urology, Nephrology, Psychiatry, Neurology Plan is for discharge to home on 07/08/22 after team meeting * Aleena Luis MD - 07/07/2022 9:08 AM EDT NEPHROLOGY PROGRESS NOTE Reason for consultation: Management of hemodialysis dependent acute kidney injury. Consulting physician: Sachin Mckeon MD. Interval history: Patient was seen and examined today and he is comfortable at rest. Hemodialysis treatment yesterday was uneventful with removal of 2 kg of fluid using IJ tunneled hemodialysis catheter. History of present illness:This is a 62 y.o. male with a significant medical history of of type 2 DM, diagnosed 15 years ago with vision compromise (no diagnosis of retinopathy), poorly controlled CKD stage 3B, previous follow-up with nephrology in the [facility] and had not seen his retort loader in the last 6 years, with unknown baseline creatinine, chronic lower extremity edema, morbid obesity (BMI 41.5), essential hypertension, remote history of nephrolithiasis. He was recently discharged from [facility] 06/30/2022 after initially presenting on 06/20/2022 with left flank pain, fever chills and gross hematuria.Patient was recently admitted in May for anobstructing stone and solitary working kidney, urology had placed a stent and Carballo was placed with intraoperative dilation. Patient was supposed to follow-up in 2 weeks with urology for definitive stone treatment however patient did not follow-up. Patient was found to have emphysematous cystitis on presentation. He was also in severe acute renal failure secondary to obstructive uropathy and ischemic ATN with peak creatinine of 5.25 mg/dL. He was started on acute hemodialysis on 06/24/2022. He is status post cystoscopy, ureteroscopy, left stent removal and stone basketing for left ureteral stone on 06/29/2022. He had a right IJ tunneled catheter placed on 06/28/22. Current Medications: heparin (porcine) injection 2,500 Units, PRN fluticasone (FLONASE) 50 MCG/ACT nasal spray 1 spray, Daily sodium chloride flush 0.9 % injection 5-40 mL, PRN 0.9 % sodium chloride infusion, PRN ondansetron (ZOFRAN-ODT) disintegrating tablet 4 mg, Q8H PRN Or ondansetron (ZOFRAN) injection 4 mg, Q6H PRN acetaminophen (TYLENOL) tablet 650 mg, Q6H PRN Or acetaminophen (TYLENOL) suppository 650 mg, Q6H PRN cefepime (MAXIPIME) 2,000 mg in sodium chloride 0.9 % 50 mL IVPB (mini-bag), Once per day on Tue Sat anticoagulant sodium citrate 4 % injection 1.8 mL, PRN anticoagulant sodium citrate 4 % injection 1.7 mL, PRN albuterol sulfate HFA (PROVENTIL;VENTOLIN;PROAIR) 108 (90 Base) MCG/ACT inhaler 2 puff, Q6H PRN allopurinol (ZYLOPRIM) tablet 100 mg, Daily atorvastatin (LIPITOR) tablet 20 mg, Nightly budesonide-formoterol (SYMBICORT) 80-4.5 MCG/ACT inhaler 2 puff, BID lamoTRIgine (LAMICTAL) tablet 200 mg, Daily mirtazapine (REMERON) tablet 30 mg, Nightly pantoprazole (PROTONIX) tablet 40 mg, QAM AC propranolol (INDERAL) tablet 20 mg, TID tamsulosin (FLOMAX) capsule 0.4 mg, Daily venlafaxine (EFFEXOR XR) extended release capsule 150 mg, Daily insulin lispro (HUMALOG) injection vial 0-8 Units, TID WC insulin lispro (HUMALOG) injection vial 0-4 Units, Nightly glucose chewable tablet 16 g, PRN dextrose bolus 10% 125 mL, PRN Or dextrose bolus 10% 250 mL, PRN glucagon (rDNA) injection 1 mg, PRN dextrose 10 % infusion, Continuous PRN lidocaine (XYLOCAINE) 2 % uro-jet, PRN oxyCODONE (ROXICODONE) immediate release tablet 5 mg, Q4H PRN senna (SENOKOT) tablet 8.6 mg, Nightly heparin (porcine) injection 5,000 Units, 3 times per day brexpiprazole (REXULTI) tablet 2 mg, Daily insulin glargine (LANTUS) injection vial 25 Units, Nightly ALPRAZolam (XANAX) tablet 0.5 mg, BID PRN gabapentin (NEURONTIN) capsule 300 mg, Daily polyethylene glycol (GLYCOLAX) packet 17 g, Daily senna (SENOKOT) tablet 17.2 mg, Daily PRN bisacodyl (DULCOLAX) suppository 10 mg, Daily PRN BP 122/76 Pulse 70 Temp 97.3 F (36.3 C) Resp 16 Ht 6' 5 (1.956 m) Wt (!) 325 lb 9.9 oz (147.7 kg) SpO2 96% BMI 38.61 kg/m Physical Exam Constitutional: Appearance: He is well-developed. HENT: Head: Normocephalic and atraumatic. Eyes: Conjunctiva/sclera: Conjunctivae normal. Neck: Vascular: No JVD. Cardiovascular: Rate and Rhythm: Normal rate and regular rhythm. Heart sounds: Normal heart sounds. No murmur heard. No friction rub. Pulmonary: Effort: No respiratory distress. Breath sounds: Normal breath sounds. No wheezing or rales. Abdominal: General: Bowel sounds are normal. Palpations: Abdomen is soft. Tenderness: There is no abdominal tenderness. Musculoskeletal: General: Normal range of motion. Cervical back: Normal range of motion and neck supple. Skin: Findings: No rash. Neurological: Mental Status: He is alert and oriented to person, place, and time. Labs: CBC: No results for input(s): WBC, RBC, HGB, HCT, MCV, MCH, MCHC, RDW, PLT, MPV in the last 72 hours. BMP: Recent Labs 07/06/22 0613 NA 138 K 4.6 CL 101 CO2 22 BUN 66* CREATININE 4.01* GLUCOSE 191* CALCIUM 9.4 Wt Readings from Last 3 Encounters: 07/06/22 (!) 325 lb 9.9 oz (147.7 kg) 06/30/22 (!) 337 lb 15.4 oz (153.3 kg) 06/09/22 (!) 351 lb 9.6 oz (159.5 kg) Temp Readings from Last 3 Encounters: 07/07/22 97.3 F (36.3 C) 06/30/22 97.5 F (36.4 C) (Oral) 06/11/22 97.7 F (36.5 C) BP Readings from Last 3 Encounters: 07/07/22 122/76 06/30/22 126/84 06/11/22 132/87 Pulse Readings from Last 3 Encounters: 07/07/22 70 06/30/22 84 06/11/22 79 Assessment/plan: 1. Acute kidney injury - secondary to obstructive uropathy and ischemic ATN from complicated UTI. There is no evidence of recovery of renal function at this time and we will continue hemodialysis on a Tuesday//Tuesday schedule. Monitor urine output and serum creatinine closely for any evidence of renal function recovery. Renal diet,i.e 2-gram sodium,2-gram potassium,1500 ml fluid restriction,1-gram phosphorus, 1800 KCal and 1.2 gram/kg protein per day. 2. Chronic kidney disease stage IIIb - secondary to diabetic nephrosclerosis baseline creatinine approximately 2.1 to 2.3 mg/dL 3. Systemic hypertension - blood pressure is adequately controlled. Prognosis is guarded. Aleena Luis MD Attending [employer] Performer * Alejandro Rios MD - 07/06/2022 4:06 PM EDT Interval history Patient is seen and examined during dialysis No new complains no shortness of breath. Scr 4.0 mg/dl HPI: This is a 62 y.o. male with a significant medical history of of type 2 DM, diagnosed 15 years ago with vision compromise (no diagnosis of retinopathy), poorly controlled CKD stage 3B, previous follow-up with nephrology in the [facility] and had not seen his retort loader in the last 6 years, withunknown baseline creatinine, chronic lower extremity edema, morbid obesity (BMI 41.5), essential hypertension, remote history of nephrolithiasis. He was recently discharged from [facility] 06/30/2022 after initially presenting on 06/20/2022 with left flank pain, fever chills and gross hematuria.Patient was recently admitted in May for anobstructing stone and solitary working kidney, urology had placed a stent and Carballo was placed with intraoperative dilation. Patient was supposed to follow-up in 2 weeks with urology for definitive stone treatment however patient did not follow-up. Patient was found to have emphysematous cystitis on presentation.He was also in severe acute renal failure secondary to obstructive uropathy and ischemic ATN with peak creatinine of 5.25 mg/dL.He was started on acute hemodialysis on 06/24/2022. He is status post cystoscopy, Ureteroscopy, left stent removal and stone basketing for left ureteral stone on 06/29/2022. He has a right IJ tunneled catheter placed on 06/28/22. 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, neuropathy and CKD stage 3 Gout Hyperlipidemia Hypertension 1999 Major depressive disorder Morbid obesity (HCC) Neuropathy SHADE (obstructive sleep apnea) 2002 Peptic ulcer disease 2018 Duodenal Ulcer Past Surgical History: Procedure Laterality Date CHOLECYSTECTOMY 2011 CYSTOSCOPY Left 05/28/2022 CYSTOSCOPY, URETERAL STENT INSERTION, URETHRAL DILATION performed by Kevin Myles MD at [facility] OR CYSTOSCOPY Left 06/29/2022 CYSTOSCOPY, URETEROSCOPY, LEFT STENT REMOVAL, STONE BASKETING (Left) CYSTOSTOMY W/ STENT INSERTION Left 06/29/2022 Stent exchange HAND SURGERY Right 12/2021 IR TUNNELED CATHETER PLACEMENT GREATER THAN 5 YEARS 06/28/2022 IR TUNNELED CATHETER PLACEMENT GREATER THAN 5 YEARS 06/28/2022 Gillian Batista MD [facility] SPECIAL PROCEDURES URETER SURGERY Left 06/29/2022 CYSTOSCOPY, URETEROSCOPY, LEFT STENT REMOVAL, STONE BASKETING performed by Kevin Myles MD at [facility] OR Current Medications: heparin (porcine) injection 2,500 Units, PRN fluticasone (FLONASE) 50 MCG/ACT nasal spray 1 spray, Daily sodium chloride flush 0.9 % injection 5-40 mL, PRN 0.9 % sodium chloride infusion, PRN ondansetron (ZOFRAN-ODT) disintegrating tablet 4 mg, Q8H PRN Or ondansetron (ZOFRAN) injection 4 mg, Q6H PRN acetaminophen (TYLENOL) tablet 650 mg, Q6H PRN Or acetaminophen (TYLENOL) suppository 650 mg, Q6H PRN cefepime (MAXIPIME) 2,000 mg in sodium chloride 0.9 % 50 mL IVPB (mini-bag), Once per day on Tue Sat anticoagulant sodium citrate 4 % injection 1.8 mL, PRN anticoagulant sodium citrate 4 % injection 1.7 mL, PRN albuterol sulfate HFA (PROVENTIL;VENTOLIN;PROAIR) 108 (90 Base) MCG/ACT inhaler 2 puff, Q6H PRN allopurinol (ZYLOPRIM) tablet 100 mg, Daily atorvastatin (LIPITOR) tablet 20 mg, Nightly budesonide-formoterol (SYMBICORT) 80-4.5 MCG/ACT inhaler 2 puff, BID lamoTRIgine (LAMICTAL) tablet 200 mg, Daily mirtazapine (REMERON) tablet 30 mg, Nightly pantoprazole (PROTONIX) tablet 40 mg, QAM AC propranolol (INDERAL) tablet 20 mg, TID tamsulosin (FLOMAX) capsule 0.4 mg, Daily venlafaxine (EFFEXOR XR) extended release capsule 150 mg, Daily insulin lispro (HUMALOG) injection vial 0-8 Units, TID WC insulin lispro (HUMALOG) injection vial 0-4 Units, Nightly glucose chewable tablet 16 g, PRN dextrose bolus 10% 125 mL, PRN Or dextrose bolus 10% 250 mL, PRN glucagon (rDNA) injection 1 mg, PRN dextrose 10 % infusion, Continuous PRN lidocaine (XYLOCAINE) 2 % uro-jet, PRN oxyCODONE (ROXICODONE) immediate release tablet 5 mg, Q4H PRN senna (SENOKOT) tablet 8.6 mg, Nightly heparin (porcine) injection 5,000 Units, 3 times per day brexpiprazole (REXULTI) tablet 2 mg, Daily insulin glargine (LANTUS) injection vial 25 Units, Nightly ALPRAZolam (XANAX) tablet 0.5 mg, BID PRN gabapentin (NEURONTIN) capsule 300 mg, Daily polyethylene glycol (GLYCOLAX) packet 17 g, Daily senna (SENOKOT) tablet 17.2 mg, Daily PRN bisacodyl (DULCOLAX) suppository 10 mg, Daily PRN Allergies: Patient has no known allergies. Social History: Social History Socioeconomic History Marital status: Spouse name: Not on file Number of children: Not on file Years of education: Not on file Highest education level: Not on file Occupational History Not on file Tobacco Use Smoking status: Never Smokeless tobacco: Never Substance and Sexual Activity Alcohol use: Yes Comment: less than 6 beers annually Drug use: Not on file Sexual activity: Not on file Other Topics Concern Not on file Social History Narrative Unemployed Social Determinants of Health Financial Resource Strain: Not on file Food Insecurity: Not on file Transportation Needs: Not on file Physical Activity: Not on file Stress: Not on file Social Connections: Not on file Intimate Partner Violence: Not on file Housing Stability: Not on file Family History: Family History Problem Relation Age of Onset Heart Disease Mother pacer Cancer Sister 58 Kidney Review of Systems Constitutional: Negative for chills and fever. Respiratory: Negative for cough, shortness of breath and wheezing. Cardiovascular: Positive for leg swelling. Negative for chest pain and palpitations. Gastrointestinal: Negative for abdominal pain, blood in stool, constipation, diarrhea, nausea and vomiting. Genitourinary: Negative for dysuria, flank pain, frequency, hematuria and urgency. Neurological: Negative for dizziness, seizures and headaches. Labs: CBC: No results for input(s): WBC, RBC, HGB, HCT, MCV, MCH, MCHC, RDW, PLT, MPV in the last 72 hours. BMP: Recent Labs 07/06/22 0613 NA 138 K 4.6 CL 101 CO2 22 BUN 66* CREATININE 4.01* GLUCOSE 191* CALCIUM 9.4 Phosphorus: No results for input(s): PHOS in the last 72 hours. Magnesium: No results for input(s): MG in the last 72 hours. Albumin: No results for input(s): LABALBU in the last 72 hours. Wt Readings from Last 3 Encounters: 07/06/22 (!) 331 lb 2.1 oz (150.2 kg) 06/30/22 (!) 337 lb 15.4 oz (153.3 kg) 06/09/22 (!) 351 lb 9.6 oz (159.5 kg) Temp Readings from Last 3 Encounters: 07/06/22 97.7 F (36.5 C) 06/30/22 97.5 F (36.4 C) (Oral) 06/11/22 97.7 F (36.5 C) BP Readings from Last 3 Encounters: 07/06/22 138/76 06/30/22 126/84 06/11/22 132/87 Pulse Readings from Last 3 Encounters: 07/06/22 78 06/30/22 84 06/11/22 79 Physical Exam Constitutional: Appearance: He is well-developed. HENT: Head: Normocephalic and atraumatic. Eyes: Conjunctiva/sclera: Conjunctivae normal. Neck: Vascular: No JVD. Cardiovascular: Rate and Rhythm: Normal rate and regular rhythm. Heart sounds: Normal heart sounds. No murmur heard. No friction rub. Pulmonary: Effort: No respiratory distress. Breath sounds: Normal breath sounds. No wheezing or rales. Abdominal: General: Bowel sounds are normal. Palpations: Abdomen is soft. Tenderness: There is no abdominal tenderness. Musculoskeletal: General: Normal range of motion. Cervical back: Normal range of motion and neck supple. Skin: Findings: No rash. Neurological: Mental Status: He is alert and oriented to person, place, and time. Assessment: 1.Acute kidney injury secondary to obstructive uropathy and ischemic ATN from complicated UTI.Peak creatinine 5.23 mg/dL-Initiated on acute dialysis and dependent since 06/24/2022.Status post tunnel catheter on 06/29/2019 2.Chronic kidney disease stage IIIb secondary to diabetic nephrosclerosis baseline creatinine approximately 2.1 to 2.3 mg/dL 3.Emphysematous cystitis/Complicated UTI 4.Left hydronephrosis S/P cystoscopy, ureteroscopy and stent removal and stone basketing 06/29/2022 by urology 5.Type 2 diabetes mellitus 6.Anemia of CKD Plan: Continue dialysis Tuesday schedule, HD today as per orders 1500 mils fluid restriction Basic metabolic panel Tuesday Continue Flomax Strict I's and O F/u Labs BMP in AM Heparin for DVT prophylaxis. Alejandro Rios MD [employer] Performer * Ada Vizcarra OT - 07/06/2022 3:35 PM EDT Occupational Therapy [facility] Occupational Therapy Daily Treatment Note Date: 07/06/22 Patient Name: Steven Walden Room: 2632/2632-01 Account: [id number] : 1960 (62 y.o.) Gender: male Referring Practitioner: Sachin Mckeon MD Diagnosis: Debility Additional Pertinent Hx: 62-year-old male with fall, fever and flank pain admitted for management of DAISY-has history of CKD stage III, diabetes, hypertension hyperlipidemia, obesity presented as above. 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 Cardiology-sinus tachycardia artifact due to essential tremors, no further cardiac work-up. Treatment Diagnosis: Impaired self-care status Past Medical History: has a past medical history of Anxiety, Chronic kidney disease, Congenital heart defect, Diabetes mellitus (HCC), Gout, Hyperlipidemia, Hypertension, Major depressive disorder, Morbid obesity (HCC), Neuropathy, SHADE (obstructive sleep apnea), and Peptic ulcer disease. Past Surgical History: has a past surgical history that includes Cholecystectomy (2010); Hand surgery (Right, 12/2021); Cystoscopy (Left, 05/28/2022); IR TUNNELED CVC PLACE WO SQ PORT/PUMP > 5 YEARS (06/28/2022); Cystostomy w/ stent insertion (Left, 06/29/2022); Cystoscopy (Left, 06/29/2022); and Ureter surgery (Left, 06/29/2022). Restrictions Restrictions/Precautions Restrictions/Precautions: Fall Risk, Up as Tolerated (fell 12 times over past few months per pt) Required Braces or Orthoses?: No Implants present? : (pt denies) Position Activity Restriction Other position/activity restrictions: OT PT eval and treat Vitals Vital Signs O2 Device: None (Room air) Subjective Subjective Subjective: I was just being prepared pt sitting at edge of bed upon OT entry and is eager and ready to participate in therapy this date. Pain Assessment Pain Assessment: None - Denies Pain Pain Level: 0 Patient's Stated Pain Goal: 0 - No pain Objective Cognition Overall Orientation Status: Within Normal Limits Cognition Overall Cognitive Status: Exceptions Arousal/Alertness: Delayed responses to stimuli Following Commands: Follows multistep commands with repitition;Follows multistep commands with increased time Attention Span: Attends with cues to redirect;Difficulty attending to directions Memory: Appears intact Safety Judgement: Decreased awareness of need for safety Problem Solving: Decreased awareness of errors Insights: Decreased awareness of deficits Initiation: Requires cues for some Sequencing: Requires cues for some Cognition Comment: delayed responses at time, pt can be impulsive at times requiring cues for safety awareness Activities of Daily Living Feeding Assistance Level: Independent Skilled Clinical Factors: per pt report Grooming/Oral Hygiene Assistance Level: Set-up Skilled Clinical Factors: seated sinkside to complete oral hygiene, face washing, hair combing, andshaving Upper Extremity Bathing Assistance Level: Set-up Skilled Clinical Factors: seated sinkside in w/c to complete, CHG soap used Lower Extremity Bathing Assistance Level: Stand by assist Skilled Clinical Factors: standing sinkside to cleanse braxton area/buttocks, no loss of balance, unilateral support on sink Upper Extremity Dressing Assistance Level: Set-up Skilled Clinical Factors: to doff/don overhead shirt while seated sinkside Lower Extremity Dressing Assistance Level: Stand by assist Skilled Clinical Factors: standing with SBA to pull up over hips Putting On/Taking Off Footwear Assistance Level: Supervision Skilled Clinical Factors: pt uses figure 4 position to don/doff footies and sneakers, increased time to complete; declines TEDs despite education/encouragement Toileting Assistance Level: Stand by assist Skilled Clinical Factors: verbal cues for proper hand placement on GB, safe descent Toilet Transfers Technique: (ambulating with RW) Equipment: Grab bars (bedside commode placed over top toilet) Additional Factors: Cues for hand placement;Increased time to complete Assistance Level: Stand by assist Skilled Clinical Factors: completed in PM; Good use of GB Mobility Sit to Stand Assistance Level: Stand by assist Skilled Clinical Factors: Good hand placement this date Stand to Sit Assistance Level: Stand by assist Skilled Clinical Factors: Good hand placement this date Functional Mobility Device: Rolling walker (bariatric rolling walker) Activity: To/From bathroom Assistance Level: Stand by assist Skilled Clinical Factors: no loss of balance, more steady this date OT Exercises Exercise Treatment: PM: OTR facilitated pt engagement in seated table top game of Trouble with 2# wrist weights donned to B wrists. Activity done to promote overall strength/endurance needed for ADLs/IADLs. Resistive Exercises: AM: Chain Maker Machine provided pt with handout/HEP on hand strengthening exercises and ptparticipated in blue resistive foam block exercises, 10 reps x2 sets, Good tolerance. Assessment Assessment Activity Tolerance: Patient limited by endurance;Patient limited by fatigue Discharge Recommendations: Continue to assess pending progress Patient Education Education Education Given To: Patient Education Provided: Role of Therapy;Plan of Care;Safety;Precautions;ADL Function;IADL Function;HomeExercise Program Education Method: Demonstration;Verbal;Printed Information/Hand-outs Barriers to Learning: None Education Outcome: Verbalized understanding;Demonstrated understanding;Continued education needed Safety Devices Safety Devices in place: Yes Type of devices: (left pt in therapy gym with STOCKKEEPER Joelle) Restraints Initially in place: No Goals Patient Goals Patient goals : To work on my stability and endurance. That's the worst part for me Pt stated in regards to his goal for occupational therapy. Short Term Goals Time Frame for Short Term Goals: By 4-5 days Short Term Goal 1: Pt will perform upper body dressing and bathing with supervision and Good safety Short Term Goal 2: Pt will perform lower body dressing/bathing with SBA, using appropriate adaptivetechniques/equipment as needed Short Term Goal 3: Pt will perform functional transfers/mobility with SBA, using least restrictive device, and Good safety Short Term Goal 4: Pt will tolerate standing for 5+ minutes, participating in dynamic standing and reaching as tolerated, during self care/functional activity of choice Short Term Goal 5: Pt will actively partcipate in therapeutic social participation activity to facilitate peer discussion regarding coping strategies and/or feelings of loss/grief related to current medical status, to promote engagement in self care and functional activities Short Term Goal 6: Pt will actively participate in 30+ minutes of therapeutic exercise/functional activity to promote safety and independence with self care and mobility Short Term Goal 7: - Halfway Goals Time Frame for Water And Gas Helper Goals : By discharge Halfway Goal 1: Pt will perform BADLs mod I, using appropriate adaptive techniques/equipment, andGood safety Halfway Goal 2: Pt will perform functional transfers/mobility, using least restrictive device, mod I and Good safety Water And Gas Helper Goal 3: Pt will tolerate standing for 10+ minutes, participating in dynamic standing and reaching as tolerated, during self care/functional activity of choice Water And Gas Helper Goal 4: Pt will V/D use of energy conservation/work simplification techniques to increaseIND during daily routine Water And Gas Helper Goal 5: Pt will V/D at least three fall prevention/home safety modifications that are applicable to his daily routine and home environment Halfway Goal 6: Pt will improve opening small containers during self-care tasks as evidenced by 5seconds improvement on 9 hole peg test and 5# improvement of uniform designer strength Halfway Goal 7: Pt will perform light housekeeping/simple meal preparation with supervision, using adaptive techniques as needed, and Good safety Plan Occupational Therapy Plan Times Per Week: 900 minutes between OT/PT/SOCIAL SERVICE ASSISTANT Current Treatment Recommendations: Strengthening, Balance training, ROM, Functional mobility training, Endurance training, Safety education & training, Equipment evaluation, education, & procurement, Patient/Caregiver education & training, Self-Care / ADL, Positioning, Home management training, Coordination training, Pain management OT Individual Minutes 07/06/22 0913 07/06/22 1533 OT Individual Minutes Time In 0906 1303 Time Out 1001 1333 Minutes 55 30 Time Code Minutes Timed Code Treatment Minutes 55 Minutes 30 Minutes * Steph George - 07/06/2022 2:56 PM EDT HEMODIALYSIS PRE-TREATMENT NOTE Patient Identifiers prior to treatment: name, birthdate and band Isolation Required: na Isolation Type: na (please document if patient is being managed as a PUI/COVID-19 patient) Hepatitis status: Date Drawn Result Hepatitis B Surface Antigen 06/21/2022 neg Hepatitis B Surface Antibody 06/21/2022 neg Hepatitis B Core Antibody How was Hepatitis Status verified: labs Was a copy of the labs you documented provided to facility for the patient's chart: yes Hemodialysis orders verified: yes Access Within normal limits ( I.e. s/s of infection,...): yes Pre-Assessment completed: yes Pre-dialysis report received from: [facility] Time: 1400 * Shelley Huggins MD - 07/06/2022 9:36 AM EDT Physical Medicine & Rehabilitation Progress Note Subjective: Steven Walden is a 62 y.o. 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 He reports doing fine today. He denies any acute concerns. Discussed estimated discharge date on 07/08/22 after team meeting this morning. ROS: Denies fevers, chills, sweats. No chest pain, palpitations, lightheadedness. Denies coughing, wheezing or shortness of breath. Denies abdominal pain, nausea, diarrhea or constipation. No new areas of joint pain. Denies new areas of numbness or weakness. Denies new anxiety or depression issues. No new skin problems. Rehabilitation: Physical Therapy Restrictions/Precautions: Fall Risk, Up as Tolerated (fell 12 times over past few months per pt) Implants present? : (pt denies) Other position/activity restrictions: OT PT eval and treat Bed mobility Rolling to Left: Stand by assistance Supine to Sit: Stand by assistance Sit to Supine: Stand by assistance Scooting: Stand by assistance Bed Mobility Comments: HOB flat, use of hand rail to complete bed mob. Transfers Sit to Stand: Stand by assistance Stand to Sit: Stand by assistance Bed to Chair: Contact guard assistance Stand Pivot Transfers: Stand by assistance (RW) Comment: CGA with RW. Good hand placement throughout tx with all transfers. Slight decrease eccentric control noted this date with stand to sit transfers d/t increase fatigue. Pt is able to transfer from various height's this date. Ambulation Surface: Level tile Device: Rolling Walker Other Apparatus: Wheelchair follow (w/c follow for PM only, however did not need.) Assistance: Contact guard assistance, Stand by assistance Quality of Gait: hip external rotation , decreased step width, and intermittent foot clearance Gait Deviations: Slow Reyna, Decreased step height Distance: 200 ft Comments: VCs to correct gait deviations as needed More Ambulation?: Yes Occupational Therapy ADL Feeding: Setup Grooming: Stand by assistance Grooming Skilled Clinical Factors: Pt combed his hair, brushed his teeth, and shaved seated in w/c at sink. Pt initially stood at sink to brush his teeth, CGA for standing balance, however requested to sit back down due to fatigue UE Bathing: Stand by assistance UE Bathing Skilled Clinical Factors: Seated in w/c at sinkside. CHG solution used for trunk and RUE. Assist with washing/drying backside LE Bathing: Contact guard assistance LE Bathing Skilled Clinical Factors: Pt stood to wash/dry periarea and buttocks, CGA for standing balance for safety. Pt used figure four method to wash/dry B feet and lower extremities UE Dressing: Minimal assistance UE Dressing Skilled Clinical Factors: Pt able to doff shirt seated in w/c, able to thread UEs into shirt and overhead. Assist with pulling down on backside LE Dressing: Minimal assistance LE Dressing Skilled Clinical Factors: Pt doffed underwear/pants off hips standing at sink, threadedoff B feet seated in w/c. Assist doffing B socks. Pt donned L sock using modified figure four technique. Assist with donning HEATHER hose and R sock. Toileting: Contact guard assistance Toileting Skilled Clinical Factors: Per STATISTICIAN THEORETICAL report- pt able to manage clothing, CGA for standing Additional Comments: OT facilitated pt's engagement in self care tasks. Pt politely declined showering but agreeable to bathing at sinkside. Pt is limited due to fine motor deficits, weakness, and low endurance/activity tolerance, inhibiting performance of self care tasks Balance Sitting Balance: Supervision Standing Balance: Contact guard assistance Standing Balance Time: <60 seconds x2, 1-2 minutes x2, 2 minutes x1 Activity: functional transfers, functional mobility, self care tasks Comment: UE support throughout Functional Mobility Functional - Mobility Device: Rolling Walker Activity: To/from bathroom Assist Level: Contact guard assistance Transfers Stand Pivot Transfers: Contact guard assistance Sit to stand: Contact guard assistance Stand to sit: Contact guard assistance Transfer Comments: Minimal cues for hand placement for safety Toilet Transfers Toilet - Technique: Ambulating Equipment Used: Grab bars Toilet Transfer: Contact guard assistance Toilet Transfers Comments: Per STATISTICIAN THEORETICAL report Speech Therapy Current Medications: Current Facility-Administered Medications: heparin (porcine) injection 2,500 Units, 2,500 Units, IntraCATHeter, PRN fluticasone (FLONASE) 50 MCG/ACT nasal spray 1 spray, 1 spray, Each Nostril, Daily sodium chloride flush 0.9 % injection 5-40 mL, 5-40 mL, IntraVENous, PRN 0.9 % sodium chloride infusion, , IntraVENous, PRN ondansetron (ZOFRAN-ODT) disintegrating tablet 4 mg, 4 mg, Oral, Q8H PRN OR ondansetron (ZOFRAN) injection 4 mg, 4 mg, IntraVENous, Q6H PRN acetaminophen (TYLENOL) tablet 650 mg, 650 mg, Oral, Q6H PRN OR acetaminophen (TYLENOL) suppository 650 mg, 650 mg, Rectal, Q6H PRN cefepime (MAXIPIME) 2,000 mg in sodium chloride 0.9 % 50 mL IVPB (mini-bag), 2,000 mg, IntraVENous,Once per day on Tue Sat anticoagulant sodium citrate 4 % injection 1.8 mL, 1.8 mL, IntraCATHeter, PRN anticoagulant sodium citrate 4 % injection 1.7 mL, 1.7 mL, IntraCATHeter, PRN albuterol sulfate HFA (PROVENTIL;VENTOLIN;PROAIR) 108 (90 Base) MCG/ACT inhaler 2 puff, 2 puff, Inhalation, Q6H PRN allopurinol (ZYLOPRIM) tablet 100 mg, 100 mg, Oral, Daily atorvastatin (LIPITOR) tablet 20 mg, 20 mg, Oral, Nightly budesonide-formoterol (SYMBICORT) 80-4.5 MCG/ACT inhaler 2 puff, 2 puff, Inhalation, BID lamoTRIgine (LAMICTAL) tablet 200 mg, 200 mg, Oral, Daily mirtazapine (REMERON) tablet 30 mg, 30 mg, Oral, Nightly pantoprazole (PROTONIX) tablet 40 mg, 40 mg, Oral, QAM AC propranolol (INDERAL) tablet 20 mg, 20 mg, Oral, TID tamsulosin (FLOMAX) capsule 0.4 mg, 0.4 mg, Oral, Daily venlafaxine (EFFEXOR XR) extended release capsule 150 mg, 150 mg, Oral, Daily insulin lispro (HUMALOG) injection vial 0-8 Units, 0-8 Units, SubCUTAneous, TID WC insulin lispro (HUMALOG) injection vial 0-4 Units, 0-4 Units, SubCUTAneous, Nightly glucose chewable tablet 16 g, 4 tablet, Oral, PRN dextrose bolus 10% 125 mL, 125 mL, IntraVENous, PRN OR dextrose bolus 10% 250 mL, 250 mL, IntraVENous, PRN glucagon (rDNA) injection 1 mg, 1 mg, IntraMUSCular, PRN dextrose 10 % infusion, , IntraVENous, Continuous PRN lidocaine (XYLOCAINE) 2 % uro-jet, , Topical, PRN oxyCODONE (ROXICODONE) immediate release tablet 5 mg, 5 mg, Oral, Q4H PRN senna (SENOKOT) tablet 8.6 mg, 1 tablet, Oral, Nightly heparin (porcine) injection 5,000 Units, 5,000 Units, SubCUTAneous, 3 times per day brexpiprazole (REXULTI) tablet 2 mg, 2 mg, Oral, Daily insulin glargine (LANTUS) injection vial 25 Units, 25 Units, SubCUTAneous, Nightly ALPRAZolam (XANAX) tablet 0.5 mg, 0.5 mg, Oral, BID PRN gabapentin (NEURONTIN) capsule 300 mg, 300 mg, Oral, Daily polyethylene glycol (GLYCOLAX) packet 17 g, 17 g, Oral, Daily senna (SENOKOT) tablet 17.2 mg, 2 tablet, Oral, Daily PRN bisacodyl (DULCOLAX) suppository 10 mg, 10 mg, Rectal, Daily PRN Objective: BP 116/78 Pulse 71 Temp 97.5 F (36.4 C) (Oral) Resp 14 Ht 6' 5 (1.956 m) Wt (!) 325 lb 9.9 oz (147.7 kg) SpO2 93% BMI 38.61 kg/m GEN: Well developed, well nourished, no acute distress HEENT: NCAT. EOM grossly intact. Hearing grossly intact. Mucous membranes pink and moist. RESP: Normal breath sounds with no wheezing, rales, or rhonchi. Respirations WNL and unlabored. CV: Regular rate and rhythm. No murmurs, rubs, or gallops. ABD: Soft, non-distended, BS+ and equal. NEURO: Alert. Speech fluent. Sensation to light touch intact in bilateral lower limbs. Tremors noted in bilateral lower limbs with strength testing. MSK: Muscle tone and bulk are normal bilaterally. Moving bilateral upper limbs with at least antigravity strength. Strength 4+/5 in bilateral lower limbs. LIMBS: Edema present in bilateral lower limbs - stable. SKIN: Warm and dry with good turgor. PSYCH: Mood WNL. Affect WNL. Appropriately interactive. Diagnostics: CBC: No results for input(s): WBC, RBC, HGB, HCT, MCV, RDW, PLT in the last 72 hours. BMP: Recent Labs 07/06/22 0613 NA 138 K 4.6 CL 101 CO2 22 BUN 66* CREATININE 4.01* GLUCOSE 191* BNP: No results for input(s): BNP in the last 72 hours. PT/INR: No results for input(s): PROTIME, INR in the last 72 hours. APTT: No results for input(s): APTT in the last 72 hours. CARDIAC ENZYMES: No results for input(s): CKMB, CKMBINDEX, TROPONINT in the last 72 hours. Invalid input(s): CKTOTAL;3 FASTING LIPID PANEL:No results found for: CHOL, HDL, TRIG LIVER PROFILE: No results for input(s): AST, ALT, ALB, BILIDIR, BILITOT, ALKPHOS in the last 72 hours. Reviewed notes from internal medicine, nephrology, OT, PT. 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 Nephrology following. On 1500 ml fluid restriction. PT/OT for gait, mobility, strengthening, endurance, ADLs, and self care. Cystitis: On cefepime until 07/06 with HD. Left hydroephrosis: S/p cysto, ureteroscopy and stent removal with stone basketing by urology 06/29. HTN/HLD: On atorvastatin, propranolol SHADE: On CPAP COPD: On albuterol prn, Symbicort BID Anemia of chronic disease: Hemoglobin 11.2 on 07/03, stable. Monitoring. Morbid obesity: BMI 39.27. Dietitian to follow DM II with neuropathy: On Lantus, sliding scale, gabapentin. Depression/anxiety: Has alprazolam prn, Rexulti, Lamictal, mirtazapine, venlafaxine. Psychiatry evaluated 06/27 - recommended continued home doses and outpatient follow up Tremors: Was previously evaluated by neurology determined to be positional tremor with some cogwheel rigidity possibly attributed to side effects of medications. For outpatient neurology follow up in2-[address] Pimentel. Gout: On allopurinol Hoarseness: Flonase added on 07/02. BPH: On flomax Bowel Management: Miralax daily, senokot prn, dulcolax prn. DVT Prophylaxis: heparin, SCD's while in bed, and HEATHER's during the day Internal medicine for medical management Follow up PCP 1-2 weeks, Urology, Nephrology, Psychiatry, Neurology Plan is for discharge to home on 07/08/22 after team meeting today Steven Walden was evaluated today and a DME order was entered for a wheeled walker because he requiresthis to successfully complete daily living tasks of toileting, personal cares, and ambulating. A wheeled walker is necessary due to the patient's unsteady gait, upper body weakness, and inability to fruit picker an ambulation device; and he can ambulate only by pushing a walker instead of a lesser assistive device such as a cane, crutch, or standard walker. The need for this equipment was discussed with the patient and he understands and is in agreement. * Alejandro Rios MD - 07/05/2022 7:46 PM EDT Interval history Patient is seen and examined No new complains Reports no shortness of breath. No labs today Scr 3.5 mg/dl on 07/03/22 Uop NOT Recorded Last HD tuesday HPI: This is a 62 y.o. male with a significant medical history of of type 2 DM, diagnosed 15 years ago with vision compromise (no diagnosis of retinopathy), poorly controlled CKD stage 3B, previous follow-up with nephrology in the [facility] and had not seen his retort loader in the last 6 years, withunknown baseline creatinine, chronic lower extremity edema, morbid obesity (BMI 41.5), essential hypertension, remote history of nephrolithiasis. He was recently discharged from [facility] 06/30/2022 after initially presenting on 06/20/2022 with left flank pain, fever chills and gross hematuria.Patient was recently admitted in May for anobstructing stone and solitary working kidney, urology had placed a stent and Carballo was placed with intraoperative dilation. Patient was supposed to follow-up in 2 weeks with urology for definitive stone treatment however patient did not follow-up. Patient was found to have emphysematous cystitis on presentation.He was also in severe acute renal failure secondary to obstructive uropathy and ischemic ATN with peak creatinine of 5.25 mg/dL.He was started on acute hemodialysis on 06/24/2022. He is status post cystoscopy, Ureteroscopy, left stent removal and stone basketing for left ureteral stone on 06/29/2022. He has a right IJ tunneled catheter placed on 06/28/22. 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, neuropathy and CKD stage 3 Gout Hyperlipidemia Hypertension 1999 Major depressive disorder Morbid obesity (HCC) Neuropathy SHADE (obstructive sleep apnea) 2002 Peptic ulcer disease 2018 Duodenal Ulcer Past Surgical History: Procedure Laterality Date CHOLECYSTECTOMY 2011 CYSTOSCOPY Left 05/28/2022 CYSTOSCOPY, URETERAL STENT INSERTION, URETHRAL DILATION performed by Kevin Myles MD at [facility] OR CYSTOSCOPY Left 06/29/2022 CYSTOSCOPY, URETEROSCOPY, LEFT STENT REMOVAL, STONE BASKETING (Left) CYSTOSTOMY W/ STENT INSERTION Left 06/29/2022 Stent exchange HAND SURGERY Right 12/2021 IR TUNNELED CATHETER PLACEMENT GREATER THAN 5 YEARS 06/28/2022 IR TUNNELED CATHETER PLACEMENT GREATER THAN 5 YEARS 06/28/2022 Gillian Batista MD [facility] SPECIAL PROCEDURES URETER SURGERY Left 06/29/2022 CYSTOSCOPY, URETEROSCOPY, LEFT STENT REMOVAL, STONE BASKETING performed by Kevin Myles MD at [facility] OR Current Medications: fluticasone (FLONASE) 50 MCG/ACT nasal spray 1 spray, Daily sodium chloride flush 0.9 % injection 5-40 mL, PRN 0.9 % sodium chloride infusion, PRN ondansetron (ZOFRAN-ODT) disintegrating tablet 4 mg, Q8H PRN Or ondansetron (ZOFRAN) injection 4 mg, Q6H PRN acetaminophen (TYLENOL) tablet 650 mg, Q6H PRN Or acetaminophen (TYLENOL) suppository 650 mg, Q6H PRN cefepime (MAXIPIME) 2,000 mg in sodium chloride 0.9 % 50 mL IVPB (mini-bag), Once per day on Tue Sat anticoagulant sodium citrate 4 % injection 1.8 mL, PRN anticoagulant sodium citrate 4 % injection 1.7 mL, PRN albuterol sulfate HFA (PROVENTIL;VENTOLIN;PROAIR) 108 (90 Base) MCG/ACT inhaler 2 puff, Q6H PRN allopurinol (ZYLOPRIM) tablet 100 mg, Daily atorvastatin (LIPITOR) tablet 20 mg, Nightly budesonide-formoterol (SYMBICORT) 80-4.5 MCG/ACT inhaler 2 puff, BID lamoTRIgine (LAMICTAL) tablet 200 mg, Daily mirtazapine (REMERON) tablet 30 mg, Nightly pantoprazole (PROTONIX) tablet 40 mg, QAM AC propranolol (INDERAL) tablet 20 mg, TID tamsulosin (FLOMAX) capsule 0.4 mg, Daily venlafaxine (EFFEXOR XR) extended release capsule 150 mg, Daily insulin lispro (HUMALOG) injection vial 0-8 Units, TID WC insulin lispro (HUMALOG) injection vial 0-4 Units, Nightly glucose chewable tablet 16 g, PRN dextrose bolus 10% 125 mL, PRN Or dextrose bolus 10% 250 mL, PRN glucagon (rDNA) injection 1 mg, PRN dextrose 10 % infusion, Continuous PRN lidocaine (XYLOCAINE) 2 % uro-jet, PRN oxyCODONE (ROXICODONE) immediate release tablet 5 mg, Q4H PRN senna (SENOKOT) tablet 8.6 mg, Nightly heparin (porcine) injection 5,000 Units, 3 times per day brexpiprazole (REXULTI) tablet 2 mg, Daily insulin glargine (LANTUS) injection vial 25 Units, Nightly ALPRAZolam (XANAX) tablet 0.5 mg, BID PRN gabapentin (NEURONTIN) capsule 300 mg, Daily polyethylene glycol (GLYCOLAX) packet 17 g, Daily senna (SENOKOT) tablet 17.2 mg, Daily PRN bisacodyl (DULCOLAX) suppository 10 mg, Daily PRN Allergies: Patient has no known allergies. Social History: Social History Socioeconomic History Marital status: Spouse name: Not on file Number of children: Not on file Years of education: Not on file Highest education level: Not on file Occupational History Not on file Tobacco Use Smoking status: Never Smokeless tobacco: Never Substance and Sexual Activity Alcohol use: Yes Comment: less than 6 beers annually Drug use: Not on file Sexual activity: Not on file Other Topics Concern Not on file Social History Narrative Unemployed Social Determinants of Health Financial Resource Strain: Not on file Food Insecurity: Not on file Transportation Needs: Not on file Physical Activity: Not on file Stress: Not on file Social Connections: Not on file Intimate Partner Violence: Not on file Housing Stability: Not on file Family History: Family History Problem Relation Age of Onset Heart Disease Mother pacer Cancer Sister 58 Kidney Review of Systems Constitutional: Negative for chills and fever. Respiratory: Negative for cough, shortness of breath and wheezing. Cardiovascular: Positive for leg swelling. Negative for chest pain and palpitations. Gastrointestinal: Negative for abdominal pain, blood in stool, constipation, diarrhea, nausea and vomiting. Genitourinary: Negative for dysuria, flank pain, frequency, hematuria and urgency. Neurological: Negative for dizziness, seizures and headaches. Labs: CBC: Recent Labs 07/03/22 0711 WBC 11.8* RBC 3.67* HGB 11.2* HCT 33.8* MCV 92.0 MCH 30.6 MCHC 33.2 RDW 14.9 PLT 243 MPV 8.2 BMP: Recent Labs 07/03/22 0711 NA 138 K 4.3 CL 100 CO2 25 BUN 47* CREATININE 3.55* GLUCOSE 159* CALCIUM 9.5 Phosphorus: No results for input(s): PHOS in the last 72 hours. Magnesium: Recent Labs 07/03/22 0711 MG 1.8 Albumin: No results for input(s): LABALBU in the last 72 hours. Wt Readings from Last 3 Encounters: 07/03/22 (!) 331 lb 2.1 oz (150.2 kg) 06/30/22 (!) 337 lb 15.4 oz (153.3 kg) 06/09/22 (!) 351 lb 9.6 oz (159.5 kg) Temp Readings from Last 3 Encounters: 07/05/22 97.6 F (36.4 C) (Oral) 06/30/22 97.5 F (36.4 C) (Oral) 06/11/22 97.7 F (36.5 C) BP Readings from Last 3 Encounters: 07/05/22 101/66 06/30/22 126/84 06/11/22 132/87 Pulse Readings from Last 3 Encounters: 07/05/22 79 06/30/22 84 06/11/22 79 Physical Exam Constitutional: Appearance: He is well-developed. HENT: Head: Normocephalic and atraumatic. Eyes: Conjunctiva/sclera: Conjunctivae normal. Neck: Vascular: No JVD. Cardiovascular: Rate and Rhythm: Normal rate and regular rhythm. Heart sounds: Normal heart sounds. No murmur heard. No friction rub. Pulmonary: Effort: No respiratory distress. Breath sounds: Normal breath sounds. No wheezing or rales. Abdominal: General: Bowel sounds are normal. Palpations: Abdomen is soft. Tenderness: There is no abdominal tenderness. Musculoskeletal: General: Normal range of motion. Cervical back: Normal range of motion and neck supple. Skin: Findings: No rash. Neurological: Mental Status: He is alert and oriented to person, place, and time. Assessment: 1.Acute kidney injury secondary to obstructive uropathy and ischemic ATN from complicated UTI.Peak creatinine 5.23 mg/dL-Initiated on acute dialysis and dependent since 06/24/2022.Status post tunnel catheter on 06/29/2019 2.Chronic kidney disease stage IIIb secondary to diabetic nephrosclerosis baseline creatinine approximately 2.1 to 2.3 mg/dL 3.Emphysematous cystitis/Complicated UTI 4.Left hydronephrosis S/P cystoscopy, ureteroscopy and stent removal and stone basketing 06/29/2022 by urology 5.Type 2 diabetes mellitus 6.Anemia of CKD Plan: Continue dialysis Tuesday schedule, HD tomorrow. 1500 mils fluid restriction Basic metabolic panel Tuesday Continue Flomax Strict I's and O F/u Labs BMP in AM Heparin for DVT prophylaxis. Alejandro Rios MD [employer] Performer * Janet Emmanuel PTA - 07/05/2022 4:04 PM EDT Physical Therapy Facility/Department: [facility] Rehabilitation Physical Therapy Daily Treatment Note NAME: Steven Walden : 1960 (62 y.o.) CODE STATUS: Full Code Date of Service: 07/05/22 Chart Reviewed: Yes Patient assessed for rehabilitation services?: Yes Additional Pertinent Hx: He initially presented with left flank pain, fevers, and chills for 3 days. 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 He was started on hemodialysis on 06/24/22. He then underwent cystoscopy, ureteroscopy, left stent removal, and stone basketing on 06/29/22 (Dr. Myles). ID is recommending cefepime with dialysis until 07/02/22. Admitted to [facility] 06/30/22. Family / Caregiver Present: No Referring Practitioner: Sachin Mckeon MD Referral Date : 06/30/22 Diagnosis: debility Restrictions: Restrictions/Precautions: Fall Risk;Up as Tolerated (fell 12 times over past few months per pt) Position Activity Restriction Other position/activity restrictions: OT PT eval and treat SUBJECTIVE Subjective: Pt is pleasant and agreeable to PT. Pt reports a fair night of sleep. PM: Pt is agreeable to trail a rollator, however reports concerns with the width of the rollator fitting throughout his house. Chain Maker Machine edu/encouraged his to ask his family to measure door widths and hallways to ensure an appropriate fit. Pt trailed a rollator and a bariatric rollator this date. Pt reports feeling more stable with bariatic rollator vs regular, however the regular rollator did not adjust to pt's height. Pain: Pt reports a burning sensation on anterior thighs of BLE's rating 4/10. Pt also describes it as discomfort this date. OBJECTIVE Vision Vision: Impaired Vision Exceptions: Wears glasses at all times Hearing Hearing: Within functional limits Cognition Overall Cognitive Status: Exceptions Arousal/Alertness: Delayed responses to stimuli Following Commands: Follows multistep commands with repitition;Follows multistep commands with increased time Attention Span: Attends with cues to redirect;Difficulty attending to directions Memory: Appears intact Safety Judgement: Decreased awareness of need for safety Problem Solving: Decreased awareness of errors Insights: Decreased awareness of deficits Initiation: Requires cues for some Sequencing: Requires cues for some Cognition Comment: delayed responses at time Quality of Movement Sensation Overall Sensation Status: Impaired (Neuropathy in B hands/feet) Functional Mobility Bed mobility Rolling to Left: Stand by assistance Supine to Sit: Stand by assistance Sit to Supine: Stand by assistance Scooting: Stand by assistance Bed Mobility Comments: HOB flat, use of hand rail to complete bed mob. Transfers Sit to Stand: Contact guard assistance;Stand by assistance (CGA progressing towards SBA) Stand to Sit: Contact guard assistance Bed to Chair: Contact guard assistance Comment: CGA with RW. Good hand placement throughout tx with all transfers. Slight decrease eccentric control noted this date with stand to sit transfers d/t increase fatigue. Pt is able to transfer from various height's this date. Balance Posture: Fair Sitting - Static: Good;- Sitting - Dynamic: Good;- Standing - Static: Fair Standing - Dynamic: Fair Comments: Standing balance with RW Environmental Mobility Ambulation Surface: Level tile;Ramp Device: Rolling Walker Assistance: Contact guard assistance Quality of Gait: AM: Pt amb with RW and in PM pt amb with rollator. Slow moving, forward flexed posture. BLE's in external rotation at baseline. Cues to increase ELSA with fair carryover and fleeting return. Increase shakiness noted with increase fatigue. Pt requires short standing rest breaks d/t fa tigue/weakness. Cues to improve posture with fair carryover. Gait Deviations: Slow Reyna;Decreased step length Distance: 242'x2 Comments: Good negotiation of RW. More Ambulation?: Yes Ambulation 2 Surface - 2: level tile Device 2: No device Assistance 2: Contact guard assistance Quality of Gait 2: Pt is fairly steady, however demos increase shakiness. No LOB noted. NBOS noted. Gait Deviations: Slow Reyna;Decreased step length;Decreased step height Ambulation 3 Surface - 3: level tile Device 3: Rollator (regular and bariatric) Assistance 3: Contact guard assistance Quality of Gait 3: Pt is more stable with bariatric rollator than regular rollator this date. Pt continues with same amb techniques as above. Pt is able to demo good safety awareness with brake management on rollator. Pt demos good technique to complete a SPT and STS from rollator seat. No LOB noted. Gait Deviations: Slow Reyna;Decreased step length;Decreased step height Distance: 100'x2 Stairs/Curb Stairs?: Yes Stairs # Steps : 9 Stairs Height: (7.5 ) Rails: Right ascending Assistance: Contact guard assistance Comment: Pt is able to complete a step through gait pattern. No LOB noted, however pt continues to demo increase shakiness > with descending stairs. Good foot clearance noted, however cues to improve entire foot placement as able on each step. PT Exercises Resistive Exercises: BLE seated exercise green tband, 1.5# weights, BLE x10-15 reps Functional Mobility Circuit Training: STS x10 this date from various heights. Postural Correction Exercises: standing no UE support standard ELSA , shoulder flexion bilateral, trunk rotation , D2 shoulder flexion. Completed with yellow weighted ball. Standing no UE support witharound the world using yellow weighted ball. Initially started on blue foam, however pt unable to tolerate. Pt is able to complete on level surface. Duration ~3-4min total. Standing/seated rest breaks PRN. ASSESSMENT Vitals O2 Device: PAP (positive airway pressure) Activity Tolerance Activity Tolerance: Patient limited by endurance;Patient limited by fatigue Activity Tolerance Comments: Pt is limited by fatigue this date. Multiple rest breaks throughout tx. Assessment Assessment: Pt very motivated and cooperative, easy going. Pt is a 1 assist and mobile with RW and rollator. Will continue to work on strengthening, balance and endurance Performance Deficits/Impairments: Decreased ADL status;Decreased functional mobility ;Decreased strength;Decreased posture;Decreased balance;Decreased endurance;Decreased ROM;Decreased sensation Treatment Diagnosis: impaired functional mobility 2* weakness and falls Therapy Prognosis: Good Decision Making: Medium Complexity Exam: ROM, MMT, Bed mobility, transfers, amb, balance Clinical Presentation: Pt cooperative, alert, motivated Barriers to Learning: increased processing time, assisted with education Discharge Recommendations: Continue to assess pending progress;Home with assist PRN PT D/C Equipment Equipment Needed: (TBD) Walker: Rolling PT Equipment Recommendations Equipment Needed: Yes (ambulates with cane at home, CTA at IPR) Walker: Rolling CLINICAL IMPRESSION Pt very motivated and cooperative, easy going. Pt is a 1 assist and mobile with RW and rollator. Will continue to work on strengthening, balance and endurance GOALS Patient Goals Patient Goals : To get more stable Short Term Goals Time Frame for Short Term Goals: 5 days Short Term Goal 1: Pt to demo IND bed mobility from flat surface. Short Term Goal 2: Pt to peform transfers SBA. Short Term Goal 3: Pt to amb 150' on level surfaces SBA. Short Term Goal 4: Pt to improve posture/sitting balance to GOOD. Short Term Goal 5: pt to perform 5 minutes on the nustep for increased endurance and speed, BUE/LE Water And [employer] Helper Goals Time Frame for Water And Gas Helper Goals : by D/C Halfway Goal 1: Pt to demo IND transfers from varied surface heights. Water And Gas Helper Goal 2: Pt to amb 200' with least restrictive device on varied surfaces, MOD I Halfway Goal 3: Pt to ascend/descend at least 8 stairs per home entry, SBA. Halfway Goal 4: Pt to score at least a 24 on Tinetti to improve standing balance to GOOD and reduce risk of falls for safe D/C. Halfway Goal 5: pt to improve BLE strength by 1/2 MMG. Additional Goals?: Yes retirement goal 6: Pt to complete 2MWT wtih distance of at least 175' with device, MOD I. retirement goal 7: Pt to improve 5xSTS to 20 seconds or less. PLAN OF CARE Physcial Therapy Plan General Plan: Other (See Comment) (900 minutes/week of combined PT/OT due to decreased endurance) Specific Instructions for Next Treatment: nustep, balance, gait Current Treatment Recommendations: Strengthening;ROM;Balance training;Gait training;Therapeutic activities;Patient/Caregiver education & training;Transfer training;Endurance training;Equipment evaluation, education, & procurement;Stair training;Functional mobility training;Home exercise program;Safety education & training Safety Devices Type of Devices: Nurse notified;Call light within reach;Patient at risk for falls;All fall risk precautions in place;Gait belt;Left in chair (nurse Lebron) Restraints Restraints Initially in Place: No Therapy Time 07/05/22 0755 07/05/22 1335 PT Individual Minutes Time In 1009 1335 Time Out 1102 1400 Minutes 53 25 Janet Emmanuel STOCKKEEPER, 07/05/22 at 4:04 PM * SANCHEZ Ramey - 07/05/2022 3:45 PM EDT [facility] Occupational Therapy Daily Treatment Note Date: 07/05/22 Patient Name: Steven Walden Room: 2632/2632-01 Account: [id number] : 1960 (62 y.o.) Gender: male Referring Practitioner: Sachin Mckeon MD Diagnosis: Debility Additional Pertinent Hx: 62-year-old male with fall, fever and flank pain admitted for management of DAISY-has history of CKD stage III, diabetes, hypertension hyperlipidemia, obesity presented as above. 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 Cardiology-sinus tachycardia artifact due to essential tremors, no further cardiac work-up. Treatment Diagnosis: Impaired self-care status Past Medical History: has a past medical history of Anxiety, Chronic kidney disease, Congenital heart defect, Diabetes mellitus (HCC), Gout, Hyperlipidemia, Hypertension, Major depressive disorder, Morbid obesity (HCC), Neuropathy, SHADE (obstructive sleep apnea), and Peptic ulcer disease. Past Surgical History: has a past surgical history that includes Cholecystectomy (2010); Hand surgery (Right, 12/2021); Cystoscopy (Left, 05/28/2022); IR TUNNELED CVC PLACE WO SQ PORT/PUMP > 5 YEARS (06/28/2022); Cystostomy w/ stent insertion (Left, 06/29/2022); Cystoscopy (Left, 06/29/2022); and Ureter surgery (Left, 06/29/2022). Restrictions Restrictions/Precautions Restrictions/Precautions: Fall Risk, Up as Tolerated Required Braces or Orthoses?: No Implants present? : (pt denies) Position Activity Restriction Other position/activity restrictions: Vitals Vital Signs O2 Device: None (Room air) Subjective Subjective Subjective: I'm doing alright Pain Assessment Pain Assessment: None - Denies Pain Pain Level: 0 Objective Cognition Overall Orientation Status: Within Normal Limits Orientation Level: Oriented X4 Cognition Overall Cognitive Status: Exceptions Arousal/Alertness: Delayed responses to stimuli Following Commands: Follows multistep commands with repitition;Follows multistep commands with increased time Attention Span: Attends with cues to redirect;Difficulty attending to directions Memory: Appears intact Safety Judgement: Decreased awareness of need for safety Problem Solving: Decreased awareness of errors Insights: Decreased awareness of deficits Initiation: Requires cues for some Sequencing: Requires cues for some Cognition Comment: delayed responses at time, pt can be impulsive at times requiring cues for safety awareness Activities of Daily Living See AM note for ADL activities. Mobility Bed Mobility Overall Assistance Level: Stand By Assist Sit to Supine Assistance Level: Stand by assist Skilled Clinical Factors: head of bed flat Supine to Sit Sit to Stand Assistance Level: Stand by assist Skilled Clinical Factors: Good hand placement this date Stand to Sit Assistance Level: Stand by assist Skilled Clinical Factors: Good hand placement this date Functional Mobility Device: Rolling walker Activity: (in room) Assistance Level: Stand by assist Skilled Clinical Factors: close SBA, no loss of balance OT Exercises Exercise Treatment: Pt engaged in BUE exercises with 3# free weight completing 15 reps in all planes.Pt completed activites to increase strength and endurance for ADL and BADL activites. Assessment Assessment Activity Tolerance: Patient limited by endurance;Patient limited by fatigue;Patient tolerated treatment well Patient Education Education Education Given To: Patient Education Provided: Role of Therapy;Plan of Care;Safety;ADL Function;Mobility Training;Transfer Training;DME/Home Modifications Education Provided Comments: OTR engages pt in discussion about potential DME needed for home. Pt states that he has a walk in shower with GB, GB around toilet, and a shower chair with a back and handheld shower head. Education Method: Verbal;Demonstration Barriers to Learning: None Education Outcome: Verbalized understanding;Demonstrated understanding;Continued education needed OT Equipment Recommendations Other: TBD Safety Devices Safety Devices in place: Yes Type of devices:left in bed with call light Goals Patient Goals Patient goals : To work on my stability and endurance. That's the worst part for me Pt stated in regards to his goal for occupational therapy. Short Term Goals Time Frame for Short Term Goals: By 4-5 days Short Term Goal 1: Pt will perform upper body dressing and bathing with supervision and Good safety Short Term Goal 2: Pt will perform lower body dressing/bathing with SBA, using appropriate adaptivetechniques/equipment as needed Short Term Goal 3: Pt will perform functional transfers/mobility with SBA, using least restrictive device, and Good safety Short Term Goal 4: Pt will tolerate standing for 5+ minutes, participating in dynamic standing and reaching as tolerated, during self care/functional activity of choice Short Term Goal 5: Pt will actively partcipate in therapeutic social participation activity to facilitate peer discussion regarding coping strategies and/or feelings of loss/grief related to current medical status, to promote engagement in self care and functional activities Short Term Goal 6: Pt will actively participate in 30+ minutes of therapeutic exercise/functional activity to promote safety and independence with self care and mobility Short Term Goal 7: verbalize 3+ fall prevention strategies to implement into home environment to engage in ADLs safely Halfway Goals Time Frame for Halfway Goals : By discharge Halfway Goal 1: Pt will perform BADLs mod I, using appropriate adaptive techniques/equipment, andGood safety Water And Gas Helper Goal 2: Pt will perform functional transfers/mobility, using least restrictive device, mod I and Good safety Halfway Goal 3: Pt will tolerate standing for 10+ minutes, participating in dynamic standing and reaching as tolerated, during self care/functional activity of choice Water And Gas Helper Goal 4: Pt will V/D use of energy conservation/work simplification techniques to increaseIND during daily routine Halfway Goal 5: Pt will V/D at least three fall prevention/home safety modifications that are applicable to his daily routine and home environment Halfway Goal 6: Pt will improve opening small containers during self-care tasks as evidenced by 5seconds improvement on 9 hole peg test and 5# improvement of uniform designer strength Water And Gas Helper Goal 7: Pt will perform light housekeeping/simple meal preparation with supervision, using adaptive techniques as needed, and Good safety Plan Occupational Therapy Plan Times Per Week: 900 minutes between OT/PT/SOCIAL SERVICE ASSISTANT Current Treatment Recommendations: Strengthening, Balance training, ROM, Functional mobility training, Endurance training, Safety education & training, Equipment evaluation, education, & procurement, Patient/Caregiver education & training, Self-Care / ADL, Positioning, Home management training, Coordination training, Pain management OT Individual Minutes OT Individual Minutes Time In: 1400 Time Out: 1430 Minutes: 30 * Shelley Huggins MD - 07/05/2022 10:32 AM EDT Physical Medicine & Rehabilitation Progress Note Subjective: Steven Walden is a 62 y.o. 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 He reports doing pretty well today. He denies any acute concerns. He states that therapies are going well. ROS: Denies fevers, chills, sweats. No chest pain, palpitations, lightheadedness. Denies coughing, wheezing or shortness of breath. Denies abdominal pain, nausea, diarrhea or constipation. No new areas of joint pain. Denies new areas of numbness or weakness. Denies new anxiety or depression issues. No new skin problems. Rehabilitation: Physical Therapy Restrictions/Precautions: Fall Risk, Up as Tolerated Implants present? : (pt denies) Other position/activity restrictions: OT PT eval and treat Bed mobility Rolling to Left: Stand by assistance Supine to Sit: Stand by assistance Sit to Supine: Stand by assistance Scooting: Stand by assistance Bed Mobility Comments: HOB flat, use of hand rail to complete bed mob. Transfers Sit to Stand: Contact guard assistance, Stand by assistance (CGA progressing towards SBA) Stand to Sit: Contact guard assistance Bed to Chair: Contact guard assistance Comment: CGA with RW. Good hand placement throughout tx with all transfers. Slight decrease eccentric control noted this date with stand to sit transfers d/t increase fatigue. Pt is able to transfer from various height's this date. Ambulation Surface: Level tile, Ramp Device: Rolling Walker Other Apparatus: Wheelchair follow (w/c follow for PM only, however did not need.) Assistance: Contact guard assistance Quality of Gait: AM: Pt amb with RW and in PM pt amb with rollator. Slow moving, forward flexed posture. BLE's in external rotation at baseline. Cues to increase ELSA with fair carryover and fleeting return. Increase shakiness noted with increase fatigue. Pt requires short standing rest breaks d/t fa tigue/weakness. Cues to improve posture with fair carryover. Gait Deviations: Slow Reyna, Decreased step length Distance: 242'x2 Comments: Good negotiation of RW. More Ambulation?: Yes Occupational Therapy ADL Feeding: Setup Grooming: Stand by assistance Grooming Skilled Clinical Factors: Pt combed his hair, brushed his teeth, and shaved seated in w/c at sink. Pt initially stood at sink to brush his teeth, CGA for standing balance, however requested to sit back down due to fatigue UE Bathing: Stand by assistance UE Bathing Skilled Clinical Factors: Seated in w/c at sinkside. CHG solution used for trunk and RUE. Assist with washing/drying backside LE Bathing: Contact guard assistance LE Bathing Skilled Clinical Factors: Pt stood to wash/dry periarea and buttocks, CGA for standing balance for safety. Pt used figure four method to wash/dry B feet and lower extremities UE Dressing: Minimal assistance UE Dressing Skilled Clinical Factors: Pt able to doff shirt seated in w/c, able to thread UEs into shirt and overhead. Assist with pulling down on backside LE Dressing: Minimal assistance LE Dressing Skilled Clinical Factors: Pt doffed underwear/pants off hips standing at sink, threadedoff B feet seated in w/c. Assist doffing B socks. Pt donned L sock using modified figure four technique. Assist with donning HEATHER hose and R sock. Toileting: Contact guard assistance Toileting Skilled Clinical Factors: Per STATISTICIAN THEORETICAL report- pt able to manage clothing, CGA for standing Additional Comments: OT facilitated pt's engagement in self care tasks. Pt politely declined showering but agreeable to bathing at sinkside. Pt is limited due to fine motor deficits, weakness, and low endurance/activity tolerance, inhibiting performance of self care tasks Balance Sitting Balance: Supervision Standing Balance: Contact guard assistance Standing Balance Time: <60 seconds x2, 1-2 minutes x2, 2 minutes x1 Activity: functional transfers, functional mobility, self care tasks Comment: UE support throughout Functional Mobility Functional - Mobility Device: Rolling Walker Activity: To/from bathroom Assist Level: Contact guard assistance Transfers Stand Pivot Transfers: Contact guard assistance Sit to stand: Contact guard assistance Stand to sit: Contact guard assistance Transfer Comments: Minimal cues for hand placement for safety Toilet Transfers Toilet - Technique: Ambulating Equipment Used: Grab bars Toilet Transfer: Contact guard assistance Toilet Transfers Comments: Per STATISTICIAN THEORETICAL report Speech Therapy Current Medications: Current Facility-Administered Medications: fluticasone (FLONASE) 50 MCG/ACT nasal spray 1 spray, 1 spray, Each Nostril, Daily sodium chloride flush 0.9 % injection 5-40 mL, 5-40 mL, IntraVENous, PRN 0.9 % sodium chloride infusion, , IntraVENous, PRN ondansetron (ZOFRAN-ODT) disintegrating tablet 4 mg, 4 mg, Oral, Q8H PRN OR ondansetron (ZOFRAN) injection 4 mg, 4 mg, IntraVENous, Q6H PRN acetaminophen (TYLENOL) tablet 650 mg, 650 mg, Oral, Q6H PRN OR acetaminophen (TYLENOL) suppository 650 mg, 650 mg, Rectal, Q6H PRN cefepime (MAXIPIME) 2,000 mg in sodium chloride 0.9 % 50 mL IVPB (mini-bag), 2,000 mg, IntraVENous,Once per day on Tue Sat anticoagulant sodium citrate 4 % injection 1.8 mL, 1.8 mL, IntraCATHeter, PRN anticoagulant sodium citrate 4 % injection 1.7 mL, 1.7 mL, IntraCATHeter, PRN albuterol sulfate HFA (PROVENTIL;VENTOLIN;PROAIR) 108 (90 Base) MCG/ACT inhaler 2 puff, 2 puff, Inhalation, Q6H PRN allopurinol (ZYLOPRIM) tablet 100 mg, 100 mg, Oral, Daily atorvastatin (LIPITOR) tablet 20 mg, 20 mg, Oral, Nightly budesonide-formoterol (SYMBICORT) 80-4.5 MCG/ACT inhaler 2 puff, 2 puff, Inhalation, BID lamoTRIgine (LAMICTAL) tablet 200 mg, 200 mg, Oral, Daily mirtazapine (REMERON) tablet 30 mg, 30 mg, Oral, Nightly pantoprazole (PROTONIX) tablet 40 mg, 40 mg, Oral, QAM AC propranolol (INDERAL) tablet 20 mg, 20 mg, Oral, TID tamsulosin (FLOMAX) capsule 0.4 mg, 0.4 mg, Oral, Daily venlafaxine (EFFEXOR XR) extended release capsule 150 mg, 150 mg, Oral, Daily insulin lispro (HUMALOG) injection vial 0-8 Units, 0-8 Units, SubCUTAneous, TID WC insulin lispro (HUMALOG) injection vial 0-4 Units, 0-4 Units, SubCUTAneous, Nightly glucose chewable tablet 16 g, 4 tablet, Oral, PRN dextrose bolus 10% 125 mL, 125 mL, IntraVENous, PRN OR dextrose bolus 10% 250 mL, 250 mL, IntraVENous, PRN glucagon (rDNA) injection 1 mg, 1 mg, IntraMUSCular, PRN dextrose 10 % infusion, , IntraVENous, Continuous PRN lidocaine (XYLOCAINE) 2 % uro-jet, , Topical, PRN oxyCODONE (ROXICODONE) immediate release tablet 5 mg, 5 mg, Oral, Q4H PRN senna (SENOKOT) tablet 8.6 mg, 1 tablet, Oral, Nightly heparin (porcine) injection 5,000 Units, 5,000 Units, SubCUTAneous, 3 times per day brexpiprazole (REXULTI) tablet 2 mg, 2 mg, Oral, Daily insulin glargine (LANTUS) injection vial 25 Units, 25 Units, SubCUTAneous, Nightly ALPRAZolam (XANAX) tablet 0.5 mg, 0.5 mg, Oral, BID PRN gabapentin (NEURONTIN) capsule 300 mg, 300 mg, Oral, Daily polyethylene glycol (GLYCOLAX) packet 17 g, 17 g, Oral, Daily senna (SENOKOT) tablet 17.2 mg, 2 tablet, Oral, Daily PRN bisacodyl (DULCOLAX) suppository 10 mg, 10 mg, Rectal, Daily PRN Objective: BP 114/77 Pulse 88 Temp 98.2 F (36.8 C) Resp 18 Ht 6' 5 (1.956 m) Wt (!) 331 lb 2.1 oz (150.2 kg) SpO2 99% BMI 39.27 kg/m GEN: Well developed, well nourished, no acute distress HEENT: NCAT. EOM grossly intact. Hearing grossly intact. Mucous membranes pink and moist. RESP: Normal breath sounds with no wheezing, rales, or rhonchi. Respirations WNL and unlabored. CV: Regular rate and rhythm. No murmurs, rubs, or gallops. ABD: Soft, non-distended, BS+ and equal. NEURO: Alert. Speech fluent. Sensation to light touch intact in bilateral lower limbs. Tremors noted in all limbs with strength testing. MSK: Muscle tone and bulk are normal bilaterally. Moving bilateral upper limbs with at least antigravity strength. Strength 4+/5 in bilateral lower limbs. LIMBS: Edema present in bilateral lower limbs - stable. SKIN: Warm and dry with good turgor. PSYCH: Mood WNL. Affect WNL. Appropriately interactive. Diagnostics: CBC: Recent Labs 07/03/22 0711 WBC 11.8* RBC 3.67* HGB 11.2* HCT 33.8* MCV 92.0 RDW 14.9 PLT 243 BMP: Recent Labs 07/03/22 0711 NA 138 K 4.3 CL 100 CO2 25 BUN 47* CREATININE 3.55* GLUCOSE 159* BNP: No results for input(s): BNP in the last 72 hours. PT/INR: No results for input(s): PROTIME, INR in the last 72 hours. APTT: No results for input(s): APTT in the last 72 hours. CARDIAC ENZYMES: No results for input(s): CKMB, CKMBINDEX, TROPONINT in the last 72 hours. Invalid input(s): CKTOTAL;3 FASTING LIPID PANEL:No results found for: CHOL, HDL, TRIG LIVER PROFILE: No results for input(s): AST, ALT, ALB, BILIDIR, BILITOT, ALKPHOS in the last 72 hours. Reviewed notes from internal medicine, nephrology, OT, PT. 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 Nephrology following. On 1500 ml fluid restriction. PT/OT for gait, mobility, strengthening, endurance, ADLs, and self care. Cystitis: On cefepime until 07/06 with HD. Left hydroephrosis: S/p cysto, ureteroscopy and stent removal with stone basketing by urology 06/29. HTN/HLD: On atorvastatin, propranolol SHADE: On CPAP COPD: On albuterol prn, Symbicort BID Anemia of chronic disease: Hemoglobin 11.2 on 07/03, stable. Monitoring. Morbid obesity: BMI 39.27. Dietitian to follow DM II with neuropathy: On Lantus, sliding scale, gabapentin. Depression/anxiety: Has alprazolam prn, Rexulti, Lamictal, mirtazapine, venlafaxine. Psychiatry evaluated 06/27 - recommended continued home doses and outpatient follow up Tremors: Was previously evaluated by neurology determined to be positional tremor with some cogwheel rigidity possibly attributed to side effects of medications. For outpatient neurology follow up in2-[address] Pimentel. Gout: On allopurinol Hoarseness: Flonase added on 07/02. BPH: On flomax Bowel Management: Miralax daily, senokot prn, dulcolax prn. DVT Prophylaxis: heparin, SCD's while in bed, and HEATHER's during the day Internal medicine for medical management Follow up PCP 1-2 weeks, Urology, Nephrology, Psychiatry, Neurology Per report, patient and prefer MWF hemodialysis schedule as outpatient * Ada Vizcarra, OT - 07/05/2022 10:25 AM EDT Occupational Therapy [facility] Occupational Therapy Daily Treatment Note Date: 07/05/22 Patient Name: Steven Walden Room: 2632/2632-01 Account: [id number] : 1960 (62 y.o.) Gender: male Referring Practitioner: Sachin Mckeon MD Diagnosis: Debility Additional Pertinent Hx: 62-year-old male with fall, fever and flank pain admitted for management of DAISY-has history of CKD stage III, diabetes, hypertension hyperlipidemia, obesity presented as above. 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 Cardiology-sinus tachycardia artifact due to essential tremors, no further cardiac work-up. Treatment Diagnosis: Impaired self-care status Past Medical History: has a past medical history of Anxiety, Chronic kidney disease, Congenital heart defect, Diabetes mellitus (HCC), Gout, Hyperlipidemia, Hypertension, Major depressive disorder, Morbid obesity (HCC), Neuropathy, SHADE (obstructive sleep apnea), and Peptic ulcer disease. Past Surgical History: has a past surgical history that includes Cholecystectomy (2010); Hand surgery (Right, 12/2021); Cystoscopy (Left, 05/28/2022); IR TUNNELED CVC PLACE WO SQ PORT/PUMP > 5 YEARS (06/28/2022); Cystostomy w/ stent insertion (Left, 06/29/2022); Cystoscopy (Left, 06/29/2022); and Ureter surgery (Left, 06/29/2022). Restrictions Restrictions/Precautions Restrictions/Precautions: Fall Risk, Up as Tolerated (fell 12 times over past few months per pt) Required Braces or Orthoses?: No Implants present? : (pt denies) Vitals Vital Signs O2 Device: None (Room air) Subjective Subjective Subjective: I'm doing alright Pain Assessment Pain Assessment: None - Denies Pain Pain Level: 0 Objective Cognition Overall Orientation Status: Within Normal Limits Orientation Level: Oriented X4 Cognition Overall Cognitive Status: Exceptions Arousal/Alertness: Delayed responses to stimuli Following Commands: Follows multistep commands with repitition;Follows multistep commands with increased time Attention Span: Attends with cues to redirect;Difficulty attending to directions Memory: Appears intact Safety Judgement: Decreased awareness of need for safety Problem Solving: Decreased awareness of errors Insights: Decreased awareness of deficits Initiation: Requires cues for some Sequencing: Requires cues for some Cognition Comment: delayed responses at time, pt can be impulsive at times requiring cues for safety awareness Activities of Daily Living Feeding Assistance Level: Independent Skilled Clinical Factors: per pt report Grooming/Oral Hygiene Assistance Level: Set-up Skilled Clinical Factors: seated sinkside to complete oral hygiene, face washing, hair combing, andshaving Upper Extremity Bathing Assistance Level: Set-up Skilled Clinical Factors: seated sinkside in w/c to complete, CHG soap used Lower Extremity Bathing Assistance Level: Stand by assist Skilled Clinical Factors: standing sinkside to cleanse braxton area/buttocks Upper Extremity Dressing Assistance Level: Set-up Skilled Clinical Factors: to doff/don overhead shirt while seated sinkside Lower Extremity Dressing Assistance Level: Stand by assist Skilled Clinical Factors: standing with SBA to pull up over hips Putting On/Taking Off Footwear Assistance Level: Stand by assist Skilled Clinical Factors: pt uses figure 4 position to don/doff footies and sneakers, increased time to complete; declines TEDs despite education/encouragement Mobility Supine to Sit Assistance Level: Stand by assist Skilled Clinical Factors: head of bed partially elevated with use of bed rail Scooting Assistance Level: Stand by assist Skilled Clinical Factors: to progress hips to EOB Sit to Stand Assistance Level: Stand by assist Skilled Clinical Factors: Good hand placement this date Stand to Sit Assistance Level: Stand by assist Skilled Clinical Factors: Good hand placement this date Functional Mobility Device: Rolling walker (bariatric rolling walker) Activity: To/From bathroom Assistance Level: Stand by assist Skilled Clinical Factors: close SBA, no loss of balance OT Exercises Resistive Exercises: AM: OTR facilitated pt engagement in hand strengthening exercise through use of velcro board. Pt completes activity with both hands and requests rest break after. Activity done to promote functional uniform designer strength in B hands needed for increased independence in self care. Pt also completes 10 reps x2 sets of hand gripper and 3# finger gripper. Assessment Assessment Activity Tolerance: Patient limited by endurance;Patient limited by fatigue;Patient tolerated treatment well Patient Education Education Education Given To: Patient Education Provided: Role of Therapy;Plan of Care;Safety;ADL Function;Mobility Training;Transfer Training;DME/Home Modifications Education Provided Comments: OTR engages pt in discussion about potential DME needed for home. Pt states that he has a walk in shower with GB, GB around toilet, and a shower chair with a back and handheld shower head. Education Method: Verbal;Demonstration Barriers to Learning: None Education Outcome: Verbalized understanding;Demonstrated understanding;Continued education needed OT Equipment Recommendations Other: TBD Safety Devices Safety Devices in place: Yes Type of devices: (left pt in gym with STOCKKEEPER Sofiya) Goals Patient Goals Patient goals : To work on my stability and endurance. That's the worst part for me Pt stated in regards to his goal for occupational therapy. Short Term Goals Time Frame for Short Term Goals: By 4-5 days Short Term Goal 1: Pt will perform upper body dressing and bathing with supervision and Good safety Short Term Goal 2: Pt will perform lower body dressing/bathing with SBA, using appropriate adaptivetechniques/equipment as needed Short Term Goal 3: Pt will perform functional transfers/mobility with SBA, using least restrictive device, and Good safety Short Term Goal 4: Pt will tolerate standing for 5+ minutes, participating in dynamic standing and reaching as tolerated, during self care/functional activity of choice Short Term Goal 5: Pt will actively partcipate in therapeutic social participation activity to facilitate peer discussion regarding coping strategies and/or feelings of loss/grief related to current medical status, to promote engagement in self care and functional activities Short Term Goal 6: Pt will actively participate in 30+ minutes of therapeutic exercise/functional activity to promote safety and independence with self care and mobility Short Term Goal 7: verbalize 3+ fall prevention strategies to implement into home environment to engage in ADLs safely Halfway Goals Time Frame for Water And [employer] Helper Goals : By discharge Halfway Goal 1: Pt will perform BADLs mod I, using appropriate adaptive techniques/equipment, andGood safety [employer] Helper Goal 2: Pt will perform functional transfers/mobility, using least restrictive device, mod I and Good safety [employer] Helper Goal 3: Pt will tolerate standing for 10+ minutes, participating in dynamic standing and reaching as tolerated, during self care/functional activity of choice [employer] Helper Goal 4: Pt will V/D use of energy conservation/work simplification techniques to increaseIND during daily routine Halfway Goal 5: Pt will V/D at least three fall prevention/home safety modifications that are applicable to his daily routine and home environment Halfway Goal 6: Pt will improve opening small containers during self-care tasks as evidenced by 5seconds improvement on 9 hole peg test and 5# improvement of uniform designer strength [employer] Helper Goal 7: Pt will perform light housekeeping/simple meal preparation with supervision, using adaptive techniques as needed, and Good safety Plan Occupational Therapy Plan Times Per Week: 900 minutes between OT/PT/SOCIAL SERVICE ASSISTANT Current Treatment Recommendations: Strengthening, Balance training, ROM, Functional mobility training, Endurance training, Safety education & training, Equipment evaluation, education, & procurement, Patient/Caregiver education & training, Self-Care / ADL, Positioning, Home management training, Coordination training, Pain management OT Individual Minutes OT Individual Minutes Time In: 0903 Time Out: 0959 Minutes: 56 Time Code Minutes Timed Code Treatment Minutes: 56 Minutes * Ada Vizcarra OT - 07/04/2022 3:33 PM EDT Occupational Therapy [facility] Occupational Therapy Daily Treatment Note Date: 07/04/22 Patient Name: Steven Walden Room: 2632/2632-01 Account: [id number] : 1960 (62 y.o.) Gender: male Referring Practitioner: Sachin Mckeon MD Diagnosis: Debility Additional Pertinent Hx: 62-year-old male with fall, fever and flank pain admitted for management of DAISY-has history of CKD stage III, diabetes, hypertension hyperlipidemia, obesity presented as above. 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 Cardiology-sinus tachycardia artifact due to essential tremors, no further cardiac work-up. Treatment Diagnosis: Impaired self-care status Past Medical History: has a past medical history of Anxiety, Chronic kidney disease, Congenital heart defect, Diabetes mellitus (HCC), Gout, Hyperlipidemia, Hypertension, Major depressive disorder, Morbid obesity (HCC), Neuropathy, SHADE (obstructive sleep apnea), and Peptic ulcer disease. Past Surgical History: has a past surgical history that includes Cholecystectomy (2010); Hand surgery (Right, 12/2021); Cystoscopy (Left, 05/28/2022); IR TUNNELED CVC PLACE WO SQ PORT/PUMP > 5 YEARS (06/28/2022); Cystostomy w/ stent insertion (Left, 06/29/2022); Cystoscopy (Left, 06/29/2022); and Ureter surgery (Left, 06/29/2022). Restrictions Restrictions/Precautions Restrictions/Precautions: Fall Risk, Up as Tolerated (fell 12 times over past few months per pt) Required Braces or Orthoses?: No Implants present? : (pt denies) Position Activity Restriction Other position/activity restrictions: OT PT eval and treat Vitals Vital Signs O2 Device: None (Room air) Subjective Subjective Subjective: I think i'll just get washed up at the sink today pt states Pain Assessment Pain Assessment: None - Denies Pain Pain Level: 0 Patient's Stated Pain Goal: 0 - No pain Objective Cognition Overall Orientation Status: Within Normal Limits Orientation Level: Oriented X4 Cognition Overall Cognitive Status: Exceptions Arousal/Alertness: Delayed responses to stimuli Following Commands: Follows multistep commands with repitition;Follows multistep commands with increased time Attention Span: Attends with cues to redirect;Difficulty attending to directions Memory: Appears intact Safety Judgement: Decreased awareness of need for safety Problem Solving: Decreased awareness of errors Insights: Decreased awareness of deficits Initiation: Requires cues for some Sequencing: Requires cues for some Cognition Comment: delayed responses at time Activities of Daily Living Feeding Assistance Level: Independent Skilled Clinical Factors: per pt report he was able to manage all food containers and cut up food Grooming/Oral Hygiene Assistance Level: Set-up Skilled Clinical Factors: seated sinkside to complete oral hygiene, face washing, hair combing, andshaving Upper Extremity Bathing Assistance Level: Set-up Skilled Clinical Factors: seated sinkside in w/c to complete, CHG soap used Lower Extremity Bathing Assistance Level: Contact guard assist Skilled Clinical Factors: CGA-SBA while standing sinkside to cleanse braxton area/buttocks Upper Extremity Dressing Assistance Level: Set-up Skilled Clinical Factors: to doff/don overhead shirt while seated sinkside Lower Extremity Dressing Assistance Level: Contact guard assist Skilled Clinical Factors: standing with CGA to pull up over hips Putting On/Taking Off Footwear Assistance Level: Stand by assist Skilled Clinical Factors: pt uses figure 4 position to don/doff footies, increased time to complete; declines TEDs despite education/encouragement Mobility Sit to Stand Assistance Level: Stand by assist Skilled Clinical Factors: Good hand placement this date Stand to Sit Assistance Level: Stand by assist Skilled Clinical Factors: Good hand placement this date Functional Mobility Device: Rolling walker (bariatric rolling walker) Activity: To/From bathroom Assistance Level: Stand by assist Skilled Clinical Factors: no loss of balance OT Exercises Exercise Treatment: PM: Pt participated in BUE strengthening ex's outside in all planes with 3# free weight. Pt tolerated treatment well, requests rest breaks as needed. Activity done to promote functional strength/endurance needed for ADLs/IADLs. Resistive Exercises: AM: pt participated in graded resistive clothespins activity to increase overall hand strength in B hands needed for increased independence in self care. Static Standing Balance Exercises: AM: Pt requests to play game of checkers with fiction and nonfiction prose writer, and standsat table top surface with unilateral hand support for 3 minutes total. Pt requests to sit down stating my legs feel like rubber . Pt completes stand with SBA. Assessment Assessment Activity Tolerance: Patient limited by endurance;Patient limited by fatigue Patient Education Education Education Given To: Patient Education Provided: Role of Therapy;Plan of Care;Safety;ADL Function;Transfer Training;Home Exercise Program Education Method: Verbal;Demonstration Barriers to Learning: None Education Outcome: Verbalized understanding;Demonstrated understanding;Continued education needed OT Equipment Recommendations Other: TBD Safety Devices Safety Devices in place: Yes Type of devices: Left in bed;Call light within reach (spouse present in room) Restraints Initially in place: No Goals Patient Goals Patient goals : To work on my stability and endurance. That's the worst part for me Pt stated in regards to his goal for occupational therapy. Short Term Goals Time Frame for Short Term Goals: By 4-5 days Short Term Goal 1: Pt will perform upper body dressing and bathing with supervision and Good safety Short Term Goal 2: Pt will perform lower body dressing/bathing with SBA, using appropriate adaptivetechniques/equipment as needed Short Term Goal 3: Pt will perform functional transfers/mobility with SBA, using least restrictive device, and Good safety Short Term Goal 4: Pt will tolerate standing for 5+ minutes, participating in dynamic standing and reaching as tolerated, during self care/functional activity of choice Short Term Goal 5: Pt will actively partcipate in therapeutic social participation activity to facilitate peer discussion regarding coping strategies and/or feelings of loss/grief related to current medical status, to promote engagement in self care and functional activities Short Term Goal 6: Pt will actively participate in 30+ minutes of therapeutic exercise/functional activity to promote safety and independence with self care and mobility Short Term Goal 7: verbalize 3+ fall prevention strategies to implement into home environment to engage in ADLs safely Halfway Goals Time Frame for Water [employer] Helper Goals : By discharge Halfway Goal 1: Pt will perform BADLs mod I, using appropriate adaptive techniques/equipment, andGood safety [employer] Helper Goal 2: Pt will perform functional transfers/mobility, using least restrictive device, mod I and Good safety Halfway Goal 3: Pt will tolerate standing for 10+ minutes, participating in dynamic standing and reaching as tolerated, during self care/functional activity of choice [employer] Helper Goal 4: Pt will V/D use of energy conservation/work simplification techniques to increaseIND during daily routine [employer] Helper Goal 5: Pt will V/D at least three fall prevention/home safety modifications that are applicable to his daily routine and home environment Halfway Goal 6: Pt will improve opening small containers during self-care tasks as evidenced by 5seconds improvement on 9 hole peg test and 5# improvement of uniform designer strength Halfway Goal 7: Pt will perform light housekeeping/simple meal preparation with supervision, using adaptive techniques as needed, and Good safety Plan Occupational Therapy Plan Times Per Week: 900 minutes between OT/PT/SOCIAL SERVICE ASSISTANT Current Treatment Recommendations: Strengthening, Balance training, ROM, Functional mobility training, Endurance training, Safety education & training, Equipment evaluation, education, & procurement, Patient/Caregiver education & training, Self-Care / ADL, Positioning, Home management training, Coordination training OT Individual Minutes 07/04/22 0752 07/04/22 1533 OT Individual Minutes Time In 0901 1403 Time Out 1001 1431 Minutes 60 28 Time Code Minutes Timed Code Treatment Minutes 60 Minutes 28 Minutes * Shelley Huggins MD - 07/04/2022 9:39 AM EDT Physical Medicine & Rehabilitation Progress Note Subjective: Steven Walden is a 62 y.o. 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 He reports doing fine today. He notes stable hoarseness of voice. He states that he worked on stairs and ambulation in the halls in therapy. He denies any other acute concerns. ROS: Denies fevers, chills, sweats. No chest pain, palpitations, lightheadedness. Denies coughing, wheezing or shortness of breath. Denies abdominal pain, nausea, diarrhea or constipation. No new areas of joint pain. Denies new areas of numbness or weakness. Denies new anxiety or depression issues. No new skin problems. Rehabilitation: Physical Therapy Restrictions/Precautions: Fall Risk, Up as Tolerated (fell 12 times over past few months per pt) Implants present? : (pt denies) Other position/activity restrictions: OT PT eval and treat Bed mobility Rolling to Left: Stand by assistance Supine to Sit: Stand by assistance Sit to Supine: Stand by assistance Scooting: Stand by assistance Bed Mobility Comments: HOB flat, use of hand rail to complete bed mob. Transfers Sit to Stand: Contact guard assistance, Stand by assistance (CGA progressing towards SBA) Stand to Sit: Contact guard assistance Bed to Chair: Contact guard assistance Comment: CGA with RW. Good hand placement throughout tx with all transfers. Decrease eccentric control noted this date with stand to sit transfers d/t increase fatigue. Ambulation Surface: Level tile Device: Rolling Walker Other Apparatus: Wheelchair follow (w/c follow for PM only, however did not need.) Assistance: Contact guard assistance Quality of Gait: Pt is more stable with RW than without this date. Slow moving, forward flexed posture. BLE's in external rotation at baseline. Cues to increase ELSA with fair carryover and fleeting retur. Increase shakiness noted with increase fatigue. Pt requires short standing rest breaks d/t fatigue/weakness. Cues to improve posture with fair carryover. Gait Deviations: Slow Reyna, Decreased step length Distance: 100'x2 (AM) and 262'(PM) Comments: Good negotiation of RW. More Ambulation?: Yes Occupational Therapy ADL Feeding: Setup Grooming: Stand by assistance Grooming Skilled Clinical Factors: Pt combed his hair, brushed his teeth, and shaved seated in w/c at sink. Pt initially stood at sink to brush his teeth, CGA for standing balance, however requested to sit back down due to fatigue UE Bathing: Stand by assistance UE Bathing Skilled Clinical Factors: Seated in w/c at sinkside. CHG solution used for trunk and RUE. Assist with washing/drying backside LE Bathing: Contact guard assistance LE Bathing Skilled Clinical Factors: Pt stood to wash/dry periarea and buttocks, CGA for standing balance for safety. Pt used figure four method to wash/dry B feet and lower extremities UE Dressing: Minimal assistance UE Dressing Skilled Clinical Factors: Pt able to doff shirt seated in w/c, able to thread UEs into shirt and overhead. Assist with pulling down on backside LE Dressing: Minimal assistance LE Dressing Skilled Clinical Factors: Pt doffed underwear/pants off hips standing at sink, threadedoff B feet seated in w/c. Assist doffing B socks. Pt donned L sock using modified figure four technique. Assist with donning HEATHER hose and R sock. Toileting: Contact guard assistance Toileting Skilled Clinical Factors: Per STATISTICIAN THEORETICAL report- pt able to manage clothing, CGA for standing Additional Comments: OT facilitated pt's engagement in self care tasks. Pt politely declined showering but agreeable to bathing at sinkside. Pt is limited due to fine motor deficits, weakness, and low endurance/activity tolerance, inhibiting performance of self care tasks Balance Sitting Balance: Supervision Standing Balance: Contact guard assistance Standing Balance Time: <60 seconds x2, 1-2 minutes x2, 2 minutes x1 Activity: functional transfers, functional mobility, self care tasks Comment: UE support throughout Functional Mobility Functional - Mobility Device: Rolling Walker Activity: To/from bathroom Assist Level: Contact guard assistance Transfers Stand Pivot Transfers: Contact guard assistance Sit to stand: Contact guard assistance Stand to sit: Contact guard assistance Transfer Comments: Minimal cues for hand placement for safety Toilet Transfers Toilet - Technique: Ambulating Equipment Used: Grab bars Toilet Transfer: Contact guard assistance Toilet Transfers Comments: Per STATISTICIAN THEORETICAL report Speech Therapy Current Medications: Current Facility-Administered Medications: fluticasone (FLONASE) 50 MCG/ACT nasal spray 1 spray, 1 spray, Each Nostril, Daily sodium chloride flush 0.9 % injection 5-40 mL, 5-40 mL, IntraVENous, PRN 0.9 % sodium chloride infusion, , IntraVENous, PRN ondansetron (ZOFRAN-ODT) disintegrating tablet 4 mg, 4 mg, Oral, Q8H PRN OR ondansetron (ZOFRAN) injection 4 mg, 4 mg, IntraVENous, Q6H PRN acetaminophen (TYLENOL) tablet 650 mg, 650 mg, Oral, Q6H PRN OR acetaminophen (TYLENOL) suppository 650 mg, 650 mg, Rectal, Q6H PRN cefepime (MAXIPIME) 2,000 mg in sodium chloride 0.9 % 50 mL IVPB (mini-bag), 2,000 mg, IntraVENous,Once per day on Tue Sat anticoagulant sodium citrate 4 % injection 1.8 mL, 1.8 mL, IntraCATHeter, PRN anticoagulant sodium citrate 4 % injection 1.7 mL, 1.7 mL, IntraCATHeter, PRN albuterol sulfate HFA (PROVENTIL;VENTOLIN;PROAIR) 108 (90 Base) MCG/ACT inhaler 2 puff, 2 puff, Inhalation, Q6H PRN allopurinol (ZYLOPRIM) tablet 100 mg, 100 mg, Oral, Daily atorvastatin (LIPITOR) tablet 20 mg, 20 mg, Oral, Nightly budesonide-formoterol (SYMBICORT) 80-4.5 MCG/ACT inhaler 2 puff, 2 puff, Inhalation, BID lamoTRIgine (LAMICTAL) tablet 200 mg, 200 mg, Oral, Daily mirtazapine (REMERON) tablet 30 mg, 30 mg, Oral, Nightly pantoprazole (PROTONIX) tablet 40 mg, 40 mg, Oral, QAM AC propranolol (INDERAL) tablet 20 mg, 20 mg, Oral, TID tamsulosin (FLOMAX) capsule 0.4 mg, 0.4 mg, Oral, Daily venlafaxine (EFFEXOR XR) extended release capsule 150 mg, 150 mg, Oral, Daily insulin lispro (HUMALOG) injection vial 0-8 Units, 0-8 Units, SubCUTAneous, TID WC insulin lispro (HUMALOG) injection vial 0-4 Units, 0-4 Units, SubCUTAneous, Nightly glucose chewable tablet 16 g, 4 tablet, Oral, PRN dextrose bolus 10% 125 mL, 125 mL, IntraVENous, PRN OR dextrose bolus 10% 250 mL, 250 mL, IntraVENous, PRN glucagon (rDNA) injection 1 mg, 1 mg, IntraMUSCular, PRN dextrose 10 % infusion, , IntraVENous, Continuous PRN lidocaine (XYLOCAINE) 2 % uro-jet, , Topical, PRN oxyCODONE (ROXICODONE) immediate release tablet 5 mg, 5 mg, Oral, Q4H PRN senna (SENOKOT) tablet 8.6 mg, 1 tablet, Oral, Nightly heparin (porcine) injection 5,000 Units, 5,000 Units, SubCUTAneous, 3 times per day brexpiprazole (REXULTI) tablet 2 mg, 2 mg, Oral, Daily insulin glargine (LANTUS) injection vial 25 Units, 25 Units, SubCUTAneous, Nightly ALPRAZolam (XANAX) tablet 0.5 mg, 0.5 mg, Oral, BID PRN gabapentin (NEURONTIN) capsule 300 mg, 300 mg, Oral, Daily polyethylene glycol (GLYCOLAX) packet 17 g, 17 g, Oral, Daily senna (SENOKOT) tablet 17.2 mg, 2 tablet, Oral, Daily PRN bisacodyl (DULCOLAX) suppository 10 mg, 10 mg, Rectal, Daily PRN Objective: BP 112/74 Pulse 82 Temp 98.2 F (36.8 C) Resp 16 Ht 6' 5 (1.956 m) Wt (!) 331 lb 2.1 oz (150.2 kg) SpO2 96% BMI 39.27 kg/m GEN: Well developed, well nourished, no acute distress HEENT: NCAT. EOM grossly intact. Hearing grossly intact. Mucous membranes pink and moist. RESP: Normal breath sounds with no wheezing, rales, or rhonchi. Respirations WNL and unlabored. CV: Regular rate and rhythm. No murmurs, rubs, or gallops. ABD: Soft, non-distended, BS+ and equal. NEURO: Alert. Speech fluent. Sensation to light touch intact. Tremors noted manual muscle testing. MSK: Muscle tone and bulk are normal bilaterally. Strength 4+/5 in all limbs. LIMBS: Edema present in bilateral lower limbs. SKIN: Warm and dry with good turgor. PSYCH: Mood WNL. Affect WNL. Appropriately interactive. Diagnostics: CBC: Recent Labs 07/03/22 0711 WBC 11.8* RBC 3.67* HGB 11.2* HCT 33.8* MCV 92.0 RDW 14.9 PLT 243 BMP: Recent Labs 07/03/22 0711 NA 138 K 4.3 CL 100 CO2 25 BUN 47* CREATININE 3.55* GLUCOSE 159* BNP: No results for input(s): BNP in the last 72 hours. PT/INR: No results for input(s): PROTIME, INR in the last 72 hours. APTT: No results for input(s): APTT in the last 72 hours. CARDIAC ENZYMES: No results for input(s): CKMB, CKMBINDEX, TROPONINT in the last 72 hours. Invalid input(s): CKTOTAL;3 FASTING LIPID PANEL:No results found for: CHOL, HDL, TRIG LIVER PROFILE: No results for input(s): AST, ALT, ALB, BILIDIR, BILITOT, ALKPHOS in the last 72 hours. Reviewed notes from internal medicine, OT, PT. 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 Nephrology following. On 1500 ml fluid restriction. PT/OT for gait, mobility, strengthening, endurance, ADLs, and self care. Cystitis: On cefepime until 07/06 with HD. Left hydroephrosis: S/p cysto, ureteroscopy and stent removal with stone basketing by urology 06/29. HTN/HLD: On atorvastatin, propranolol SHADE: On CPAP COPD: On albuterol prn, Symbicort BID Anemia of chronic disease: Hemoglobin 11.2 on 07/03, stable. Monitoring. Morbid obesity: BMI 39.27. Dietitian to follow DM II with neuropathy: On Lantus, sliding scale, gabapentin. Depression/anxiety: Has alprazolam prn, Rexulti, Lamictal, mirtazapine, venlafaxine. Psychiatry evaluated 06/27 - recommended continued home doses and outpatient follow up Tremors: Was previously evaluated by neurology determined to be positional tremor with some cogwheel rigidity possibly attributed to side effects of medications. For outpatient neurology follow up in2-[address] Pimentel. Gout: On allopurinol Hoarseness: Flonase added on 07/02. BPH: On flomax Bowel Management: Miralax daily, senokot prn, dulcolax prn. DVT Prophylaxis: heparin, SCD's while in bed, and HEATHER's during the day Internal medicine for medical management Follow up PCP 1-2 weeks, Urology, Nephrology, Psychiatry, Neurology * Frances Jeffery RN - 07/03/2022 6:33 PM EDT HEMODIALYSIS POST TREATMENT NOTE Treatment time ordered: 3 hrs 15 min Actual treatment time: 3 hrs 15 min UltraFiltration Goal: 2000mls UltraFiltration Removed: 2000mls Pre Treatment weight: unable to get bed to weigh Post Treatment weight: na Estimated Dry Weight: na Access used: Central Venous Catheter: Tunneled or Non-tunneled: tunneled Site: right chest Access Flow: fair, blood flow 250-300 with freq alarms Internal Access: AV Fistula or AV Graft: na Site: na Access Flow: na Sign and symptoms of infection: no If YES: na Medications or blood products given: na Chronic outpatient schedule: na Chronic outpatient unit: na Summary of response to treatment: well Explain if orders NOT met, was physician notified:rogelio PEARSON flowsheet faxed to patient unit/ placed in patient chart: yes Post assessment completed: yes Report given to: damir randall lpn * Intra-treatment documented Safety Checks include the followin) Access and face visible at all times. 2) All connections and blood lines are secure with no kinks. 3) NVL alarm engaged. 4) Hemosafe device applied (if applicable). 5) No collapse of Arterial or Venous blood chambers. 6) All blood lines / pump segments in the air detectors. * Janet Emmanuel PTA - 07/03/2022 4:00 PM EDT Physical Therapy Facility/Department: [facility] Rehabilitation Physical Therapy Daily Treatment Note NAME: Steven Walden : 1960 (62 y.o.) CODE STATUS: Full Code Date of Service: 07/03/22 Chart Reviewed: Yes Patient assessed for rehabilitation services?: Yes Additional Pertinent Hx: He initially presented with left flank pain, fevers, and chills for 3 days. 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 He was started on hemodialysis on 06/24/22. He then underwent cystoscopy, ureteroscopy, left stent removal, and stone basketing on 06/29/22 (Dr. Myles). ID is recommending cefepime with dialysis until 07/02/22. Admitted to [facility] 06/30/22. Family / Caregiver Present: No Referring Practitioner: Sachin Mckeon MD Referral Date : 06/30/22 Diagnosis: debility Restrictions: Restrictions/Precautions: Fall Risk;Up as Tolerated (fell 12 times over past few months per pt) Position Activity Restriction Other position/activity restrictions: OT PT eval and treat SUBJECTIVE Subjective: Pt is pleasant and agreeable to PT. PM: Pt is just woken up by nursing staff, however agreeable to PT. Pain: Pt reports a burning sensation on anterior thighs of BLE's rating 4/10 at rest and increases to 6/10 with mobility. OBJECTIVE Vision Vision: Impaired Vision Exceptions: Wears glasses at all times Hearing Hearing: Within functional limits Cognition Overall Cognitive Status: Exceptions Arousal/Alertness: Delayed responses to stimuli Following Commands: Follows multistep commands with repitition;Follows multistep commands with increased time Attention Span: Attends with cues to redirect;Difficulty attending to directions Memory: Appears intact Safety Judgement: Decreased awareness of need for safety Problem Solving: Decreased awareness of errors Insights: Decreased awareness of deficits Initiation: Requires cues for some Sequencing: Requires cues for some Cognition Comment: delayed responses at time Sensation Overall Sensation Status: Impaired (Neuropathy in B hands/feet) Functional Mobility Bed mobility Rolling to Left: Stand by assistance Supine to Sit: Stand by assistance Sit to Supine: Stand by assistance Scooting: Stand by assistance Bed Mobility Comments: HOB flat, use of hand rail from supine->sit. Transfers Sit to Stand: Contact guard assistance Stand to Sit: Contact guard assistance Bed to Chair: Contact guard assistance Comment: CGA with RW. Good hand placement throughout tx with all transfers. Decrease eccentric control noted this date with stand to sit transfers d/t increase fatigue. Balance Posture: Fair Sitting - Static: Good;- Sitting - Dynamic: Good;- Standing - Static: Fair Standing - Dynamic: Fair Comments: Standing balance with RW Environmental Mobility Ambulation Surface: Level tile Device: Rolling Walker Assistance: Contact guard assistance Quality of Gait: slow moving, forward flexed posture, small steps. Increase shakiness noted. Pt requires short standing rest breaks d/t fatigue/weakness. Cues to improve posture with fair carryover. Gait Deviations: Slow Reyna;Decreased step length Distance: 100'x2 (Pt requires a sitting rest break after 100' d/t increase fatigue and shortness ofbreath. Vitals are WNL.) Comments: Good negotiation of RW. More Ambulation?: Yes Ambulation 2 Surface - 2: level tile Device 2: No device Assistance 2: Contact guard assistance Quality of Gait 2: Pt is steady, however demos increase shakiness. No LOB noted. NBOS noted. Gait Deviations: Slow Reyna;Decreased step length;Decreased step height Distance: 20' Ambulation 3 Surface - 3: level tile Device 3: Monge rail Assistance 3: Contact guard assistance;Minimal assistance Quality of Gait 3: Pt is able to amb F/R at monge rail with Unilateral UE support. CGA for F amb andMin A for Retro amb this date. Pt demos BLE's in external rotation, NBOS, and slighlty unsteady. Ptdemos a varying reyna with retro amb, however is able to amb at at steady reyna while amb F. Ptis also able to amb laterally at monge rail with BUE's. Slightly unsteady d/t increase fatigue. Seated rest breaks between each. Gait Deviations: Slow Reyna;Decreased step length;Decreased step height Distance: 20' x1 (laterally) and 20'x2 (F/R) Stairs/Curb Stairs?: Yes Stairs # Steps : 10 Stairs Height: 4 (and 6 ) Rails: Left ascending Assistance: Contact guard assistance Comment: Pt is able to complete a step through gait pattern. Cues for foot placement with fair + carryover. No LOB noted, however pt continues to demo increase shakiness > with descending stairs. PT Exercises A/AROM Exercises: standing BLE exs x 10- marching, 3way hip, HS curls, Heel raises. RW for BUE support. (CGA progressing to Rebekah d/t fatigue. Seated rest breaks between each d/t fatigue.) Resistive Exercises: BLE seated exercise green tband, 1.5# weights, BLE x10-15 reps Functional Mobility Circuit Training: STS x10 this date. Dynamic Standing Balance Exercises: standing on foam with BUE support on // bars. SLS cone tapping 2x4 each. Pt requires a seated rest break d/t fatigue. ASSESSMENT Vitals O2 Device: None (Room air) Activity Tolerance Activity Tolerance: Patient limited by endurance;Patient limited by fatigue Activity Tolerance Comments: Pt is very limited by fatigue this date. Multiple rest breaks throughout tx. Assessment Assessment: Pt very motivated and cooperative, easy going. Pt is a 1 assist and mobile with RW. Will continue to work on strengthening, balance and endurance Performance Deficits/Impairments: Decreased ADL status;Decreased functional mobility ;Decreased strength;Decreased posture;Decreased balance;Decreased endurance;Decreased ROM;Decreased sensation Treatment Diagnosis: impaired functional mobility 2* weakness and falls Therapy Prognosis: Good Decision Making: Medium Complexity Exam: ROM, MMT, Bed mobility, transfers, amb, balance Clinical Presentation: Pt cooperative, alert, motivated Barriers to Learning: increased processing time, assisted with education Discharge Recommendations: Continue to assess pending progress;Home with assist PRN PT D/C Equipment Equipment Needed: (TBD) Walker: Rolling PT Equipment Recommendations Equipment Needed: Yes (ambulates with cane at home, CTA at IPR) Walker: Rolling CLINICAL IMPRESSION Pt very motivated and cooperative, easy going. Pt is a 1 assist and mobile with RW. Will continue to work on strengthening, balance and endurance GOALS Patient Goals Patient Goals : To get more stable Short Term Goals Time Frame for Short Term Goals: 5 days Short Term Goal 1: Pt to demo IND bed mobility from flat surface. Short Term Goal 2: Pt to peform transfers SBA. Short Term Goal 3: Pt to amb 150' on level surfaces SBA. Short Term Goal 4: Pt to improve posture/sitting balance to GOOD. Short Term Goal 5: pt to perform 5 minutes on the nustep for increased endurance and speed, BUE/LE Halfway Goals Time Frame for Water And Gas Helper Goals : by D/C Water And Gas Helper Goal 1: Pt to demo IND transfers from varied surface heights. Halfway Goal 2: Pt to amb 200' with least restrictive device on varied surfaces, MOD I Water And Gas Helper Goal 3: Pt to ascend/descend at least 8 stairs per home entry, SBA. Water And Gas Helper Goal 4: Pt to score at least a 24 on Tinetti to improve standing balance to GOOD and reduce risk of falls for safe D/C. Water And Gas Helper Goal 5: pt to improve BLE strength by 1/2 MMG. Additional Goals?: Yes rat exterminator goal 6: Pt to complete 2MWT wtih distance of at least 175' with device, MOD I. retirement goal 7: Pt to improve 5xSTS to 20 seconds or less. PLAN OF CARE Physcial Therapy Plan General Plan: Other (See Comment) (900 minutes/week of combined PT/OT due to decreased endurance) Specific Instructions for Next Treatment: nustep, balance, gait Current Treatment Recommendations: Strengthening;ROM;Balance training;Gait training;Therapeutic activities;Patient/Caregiver education & training;Transfer training;Endurance training;Equipment evaluation, education, & procurement;Stair training;Functional mobility training;Home exercise program;Safety education & training Safety Devices Type of Devices: Nurse notified;Call light within reach;Patient at risk for falls;All fall risk precautions in place;Gait belt;Left in chair (nurse Lebron) Restraints Restraints Initially in Place: No Therapy Time 07/03/22 0757 07/03/22 1342 PT Individual Minutes Time In 1007 1342 Time Out 1100 1404 Minutes 53 22 Janet Emmanuel, STOCKKEEPER, 07/03/22 at 4:00 PM * Ada Vizcarra, OT - 07/03/2022 3:34 PM EDT Occupational Therapy [facility] Occupational Therapy Daily Treatment Note Date: 07/03/22 Patient Name: Steven Walden Room: 2632/2632-01 Account: [id number] : 1960 (62 y.o.) Gender: male Referring Practitioner: Sachin Mckeon MD Diagnosis: Debility Additional Pertinent Hx: 62-year-old male with fall, fever and flank pain admitted for management of DAISY-has history of CKD stage III, diabetes, hypertension hyperlipidemia, obesity presented as above. 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 Cardiology-sinus tachycardia artifact due to essential tremors, no further cardiac work-up. Treatment Diagnosis: Impaired self-care status Past Medical History: has a past medical history of Anxiety, Chronic kidney disease, Congenital heart defect, Diabetes mellitus (HCC), Gout, Hyperlipidemia, Hypertension, Major depressive disorder, Morbid obesity (HCC), Neuropathy, SHADE (obstructive sleep apnea), and Peptic ulcer disease. Past Surgical History: has a past surgical history that includes Cholecystectomy (2010); Hand surgery (Right, 12/2021); Cystoscopy (Left, 05/28/2022); IR TUNNELED CVC PLACE WO SQ PORT/PUMP > 5 YEARS (06/28/2022); Cystostomy w/ stent insertion (Left, 06/29/2022); Cystoscopy (Left, 06/29/2022); and Ureter surgery (Left, 06/29/2022). Restrictions Restrictions/Precautions Restrictions/Precautions: Fall Risk, Up as Tolerated (fell 12 times over past few months per pt) Required Braces or Orthoses?: No Implants present? : (pt denies) Position Activity Restriction Other position/activity restrictions: OT PT eval and treat Vitals Vital Signs O2 Device: None (Room air) Subjective Subjective Subjective: Sure that sounds good pt reports in response to shower. HD port waterproofed, CHG soap used, ok to shower per SONIA Viveros. Pain: Pt denies pain in AM however states he is just sore. Pain Assessment Pain Assessment: None - Denies Pain Objective Cognition Overall Orientation Status: Within Normal Limits Orientation Level: Oriented X4 Cognition Overall Cognitive Status: Exceptions Arousal/Alertness: Delayed responses to stimuli Following Commands: Follows multistep commands with repitition;Follows multistep commands with increased time Attention Span: Attends with cues to redirect;Difficulty attending to directions Memory: Appears intact Safety Judgement: Decreased awareness of need for safety Problem Solving: Decreased awareness of errors Insights: Decreased awareness of deficits Initiation: Requires cues for some Sequencing: Requires cues for some Cognition Comment: delayed responses at time Activities of Daily Living Feeding Assistance Level: Set-up Skilled Clinical Factors: per pt report Grooming/Oral Hygiene Assistance Level: Set-up Skilled Clinical Factors: seated sinkside to complete oral hygiene, face washing, hair combing, andshaving Upper Extremity Bathing Assistance Level: Stand by assist Skilled Clinical Factors: seated on tub bench to complete- pt utilized CHG soap and HD port waterproofed Lower Extremity Bathing Assistance Level: Minimal assistance Skilled Clinical Factors: standing in shower with BUE support on GB, A for thoroughness of buttocks; pt able to complete remainder of LB bathing with CGA Upper Extremity Dressing Skilled Clinical Factors: pt requests to wear hospital gown this date as he states it is easy access for dialysis port later Lower Extremity Dressing Assistance Level: Contact guard assist Skilled Clinical Factors: standing with CGA to pull up over hips Putting On/Taking Off Footwear Assistance Level: Stand by assist Skilled Clinical Factors: figure 4 to don footies with increased time and effort due to decreased endurance; pt refuses TEDs this date Toileting Assistance Level: Stand by assist Skilled Clinical Factors: verbal cues for proper hand placement on GB, safe descent Toilet Transfers Technique: (ambulating) Equipment: Grab bars (handicap toilet) Additional Factors: Cues for hand placement;Increased time to complete Assistance Level: Stand by assist Skilled Clinical Factors: completed in PM; Good use of GB Tub/Shower Transfers Type: Shower Transfer From: Rolling walker Transfer To: Tub transfer bench Additional Factors: Cues for hand placement;Increased time to complete Assistance Level: Contact guard assist Skilled Clinical Factors: pt uses RW to transfer into shower, does stand pivot into wheelchair to transfer out of shower due to wet environment and decreased endurance Mobility Sit to Stand Assistance Level: Contact guard assist Skilled Clinical Factors: verbal cues for hand placement and cues to lock brakes on w/c as pt is slightly impulsive Stand to Sit Assistance Level: Contact guard assist Skilled Clinical Factors: verbal cues for hand placement and cues to lock brakes on w/c as pt is slightly impulsive Functional Mobility Device: Rolling walker (bariatric rolling walker) Activity: To/From bathroom Assistance Level: Contact guard assist Skilled Clinical Factors: CGA for safety as pt is slightly unsteady at times due to BLE weakness/shakiness OT Exercises Exercise Treatment: PM: Pt engaged in BUE strengthening ex's during seated game of checkers per pt request and B 1.5# wrist weights donned. Activity done for 25 minutes to promote functional strength/endurance needed for ADLs/IADLs. Assessment Assessment Activity Tolerance: Patient limited by endurance;Patient limited by fatigue Patient Education Education Education Given To: Patient Education Provided: Role of Therapy;Plan of Care;Safety;ADL Function;Transfer Training Education Method: Verbal;Demonstration Barriers to Learning: None Education Outcome: Verbalized understanding;Demonstrated understanding;Continued education needed OT Equipment Recommendations Other: TBD Safety Devices Safety Devices in place: Yes Type of devices: (left pt in gym with STOCKKEEPER Sofiya present) Restraints Initially in place: No Goals Patient Goals Patient goals : To work on my stability and endurance. That's the worst part for me Pt stated in regards to his goal for occupational therapy. Short Term Goals Time Frame for Short Term Goals: By 4-5 days Short Term Goal 1: Pt will perform upper body dressing and bathing with supervision and Good safety Short Term Goal 2: Pt will perform lower body dressing/bathing with SBA, using appropriate adaptivetechniques/equipment as needed Short Term Goal 3: Pt will perform functional transfers/mobility with SBA, using least restrictive device, and Good safety Short Term Goal 4: Pt will tolerate standing for 5+ minutes, participating in dynamic standing and reaching as tolerated, during self care/functional activity of choice Short Term Goal 5: Pt will actively partcipate in therapeutic social participation activity to facilitate peer discussion regarding coping strategies and/or feelings of loss/grief related to current medical status, to promote engagement in self care and functional activities Short Term Goal 6: Pt will actively participate in 30+ minutes of therapeutic exercise/functional activity to promote safety and independence with self care and mobility Short Term Goal 7: verbalize 3+ fall prevention strategies to implement into home environment to engage in ADLs safely Halfway Goals Time Frame for Halfway Goals : By discharge Halfway Goal 1: Pt will perform BADLs mod I, using appropriate adaptive techniques/equipment, andGood safety Water And Gas Helper Goal 2: Pt will perform functional transfers/mobility, using least restrictive device, mod I and Good safety Water And Gas Helper Goal 3: Pt will tolerate standing for 10+ minutes, participating in dynamic standing and reaching as tolerated, during self care/functional activity of choice Water And Gas Helper Goal 4: Pt will V/D use of energy conservation/work simplification techniques to increaseIND during daily routine Water And Gas Helper Goal 5: Pt will V/D at least three fall prevention/home safety modifications that are applicable to his daily routine and home environment Water And Gas Helper Goal 6: Pt will improve opening small containers during self-care tasks as evidenced by 5seconds improvement on 9 hole peg test and 5# improvement of uniform designer strength Halfway Goal 7: Pt will perform light housekeeping/simple meal preparation with supervision, using adaptive techniques as needed, and Good safety Plan Occupational Therapy Plan Times Per Week: 900 minutes between OT/PT/SOCIAL SERVICE ASSISTANT Current Treatment Recommendations: Strengthening, Balance training, ROM, Functional mobility training, Endurance training, Safety education & training, Equipment evaluation, education, & procurement, Patient/Caregiver education & training, Self-Care / ADL, Positioning, Home management training, Coordination training OT Individual Minutes 07/03/22 0941 07/03/22 1533 OT Individual Minutes Time In 0900 1406 Time Out 0957 1434 Minutes 57 28 Time Code Minutes Timed Code Treatment Minutes 57 Minutes 28 Minutes * Frances Jeffery RN - 07/03/2022 3:18 PM EDT HEMODIALYSIS PRE-TREATMENT NOTE Patient Identifiers prior to treatment: name, , mrn Isolation Required: na Isolation Type: na (please document if patient is being managed as a PUI/COVID-19 patient) Hepatitis status: Date Drawn Result Hepatitis B Surface Antigen 06/21/22 neg Hepatitis B Surface Antibody 06/21/92 neg Hepatitis B Core Antibody na na How was Hepatitis Status verified: epic Was a copy of the labs you documented provided to facility for the patient's chart: yes Hemodialysis orders verified: yes Access Within normal limits ( I.e. s/s of infection,...): yes Pre-Assessment completed: yes Pre-dialysis report received from: julius Menon lpn, rn Time: 1420 * Jacki Davila - 07/03/2022 1:08 PM EDT Chain Maker Machine responded to consult for spiritual care. Patient said he was in a much better frame of mind and processing his condition and current need for dialysis. He is hopeful that it will not be a fci need. Therapy, while intense and tiring, is going well. When asked, patient noted he is not very tenriism and doesn't find prayer helpful but he did appreciate an opportunity to talk through his thoughts and feelings. 07/03/22 1306 Encounter Summary Encounter Overview/Reason Spiritual/Emotional Needs Service Provided For: Patient Referral/Consult From: Nurse Support System Spouse;Children;Family members Last Encounter 07/03/22 Complexity of Encounter Moderate Begin Time 1130 End Time 1145 Total Time Calculated 15 min Spiritual/Emotional needs Type Spiritual Support Assessment/Intervention/Outcome Assessment Calm;Hopeful Intervention Active listening;Discussed illness injury and it s impact;Discussed belief system/tenriism practices/philippe;Explored/Affirmed feelings, thoughts, concerns;Sustaining Presence/Ministry ofpresence Outcome Engaged in conversation;Expressed feelings, needs, and concerns;Expressed Gratitude;Receptive * Shelley Huggins MD - 07/03/2022 10:42 AM EDT Physical Medicine & Rehabilitation Progress Note Subjective: Steven Walden is a 62 y.o. 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 He reports doing fine today. He notes ongoing hoarseness of voice and chronic cough. He denies any sore throat and congestion. He denies any other acute concerns. ROS: Denies fevers, chills, sweats. No chest pain, palpitations, lightheadedness. Denies coughing, wheezing or shortness of breath. Denies abdominal pain, nausea, diarrhea or constipation. No new areas of joint pain. Denies new areas of numbness or weakness. Denies new anxiety or depression issues. No new skin problems. Rehabilitation: Physical Therapy Restrictions/Precautions: Fall Risk, Up as Tolerated (fell 12 times over past few months per pt) Implants present? : (pt denies) Other position/activity restrictions: OT PT eval and treat Bed mobility Rolling to Left: Stand by assistance Supine to Sit: Stand by assistance Sit to Supine: Stand by assistance Scooting: Stand by assistance Bed Mobility Comments: HOB flat, use of hand rail from supine->sit. Transfers Sit to Stand: Contact guard assistance Stand to Sit: Contact guard assistance Bed to Chair: Contact guard assistance Comment: CGA with RW. Good hand placement throughout tx with all transfers. Decrease eccentric control noted this date with stand to sit transfers d/t increase fatigue. Ambulation Surface: Level tile Device: Rolling Walker Other Apparatus: Wheelchair follow Assistance: Contact guard assistance Quality of Gait: slow moving, forward flexed posture, small steps. Increase shakiness noted. Pt requires short standing rest breaks d/t fatigue/weakness. Cues to improve posture with fair carryover. Gait Deviations: Slow Reyna, Decreased step length Distance: 100'x2 (Pt requires a sitting rest break after 100' d/t increase fatigue and shortness ofbreath. Vitals are WNL.) Comments: Good negotiation of RW. More Ambulation?: Yes Occupational Therapy ADL Feeding: Setup Grooming: Stand by assistance Grooming Skilled Clinical Factors: Pt combed his hair, brushed his teeth, and shaved seated in w/c at sink. Pt initially stood at sink to brush his teeth, CGA for standing balance, however requested to sit back down due to fatigue UE Bathing: Stand by assistance UE Bathing Skilled Clinical Factors: Seated in w/c at sinkside. CHG solution used for trunk and RUE. Assist with washing/drying backside LE Bathing: Contact guard assistance LE Bathing Skilled Clinical Factors: Pt stood to wash/dry periarea and buttocks, CGA for standing balance for safety. Pt used figure four method to wash/dry B feet and lower extremities UE Dressing: Minimal assistance UE Dressing Skilled Clinical Factors: Pt able to doff shirt seated in w/c, able to thread UEs into shirt and overhead. Assist with pulling down on backside LE Dressing: Minimal assistance LE Dressing Skilled Clinical Factors: Pt doffed underwear/pants off hips standing at sink, threadedoff B feet seated in w/c. Assist doffing B socks. Pt donned L sock using modified figure four technique. Assist with donning HEATHER hose and R sock. Toileting: Contact guard assistance Toileting Skilled Clinical Factors: Per STATISTICIAN THEORETICAL report- pt able to manage clothing, CGA for standing Additional Comments: OT facilitated pt's engagement in self care tasks. Pt politely declined showering but agreeable to bathing at sinkside. Pt is limited due to fine motor deficits, weakness, and low endurance/activity tolerance, inhibiting performance of self care tasks Balance Sitting Balance: Supervision Standing Balance: Contact guard assistance Standing Balance Time: <60 seconds x2, 1-2 minutes x2, 2 minutes x1 Activity: functional transfers, functional mobility, self care tasks Comment: UE support throughout Functional Mobility Functional - Mobility Device: Rolling Walker Activity: To/from bathroom Assist Level: Contact guard assistance Transfers Stand Pivot Transfers: Contact guard assistance Sit to stand: Contact guard assistance Stand to sit: Contact guard assistance Transfer Comments: Minimal cues for hand placement for safety Toilet Transfers Toilet - Technique: Ambulating Equipment Used: Grab bars Toilet Transfer: Contact guard assistance Toilet Transfers Comments: Per STATISTICIAN THEORETICAL report Speech Therapy Current Medications: Current Facility-Administered Medications: fluticasone (FLONASE) 50 MCG/ACT nasal spray 1 spray, 1 spray, Each Nostril, Daily sodium chloride flush 0.9 % injection 5-40 mL, 5-40 mL, IntraVENous, 2 times per day sodium chloride flush 0.9 % injection 5-40 mL, 5-40 mL, IntraVENous, PRN 0.9 % sodium chloride infusion, , IntraVENous, PRN ondansetron (ZOFRAN-ODT) disintegrating tablet 4 mg, 4 mg, Oral, Q8H PRN OR ondansetron (ZOFRAN) injection 4 mg, 4 mg, IntraVENous, Q6H PRN acetaminophen (TYLENOL) tablet 650 mg, 650 mg, Oral, Q6H PRN OR acetaminophen (TYLENOL) suppository 650 mg, 650 mg, Rectal, Q6H PRN cefepime (MAXIPIME) 2,000 mg in sodium chloride 0.9 % 50 mL IVPB (mini-bag), 2,000 mg, IntraVENous,Once per day on Tue Sat anticoagulant sodium citrate 4 % injection 1.8 mL, 1.8 mL, IntraCATHeter, PRN anticoagulant sodium citrate 4 % injection 1.7 mL, 1.7 mL, IntraCATHeter, PRN albuterol sulfate HFA (PROVENTIL;VENTOLIN;PROAIR) 108 (90 Base) MCG/ACT inhaler 2 puff, 2 puff, Inhalation, Q6H PRN allopurinol (ZYLOPRIM) tablet 100 mg, 100 mg, Oral, Daily atorvastatin (LIPITOR) tablet 20 mg, 20 mg, Oral, Nightly budesonide-formoterol (SYMBICORT) 80-4.5 MCG/ACT inhaler 2 puff, 2 puff, Inhalation, BID lamoTRIgine (LAMICTAL) tablet 200 mg, 200 mg, Oral, Daily mirtazapine (REMERON) tablet 30 mg, 30 mg, Oral, Nightly pantoprazole (PROTONIX) tablet 40 mg, 40 mg, Oral, QAM AC propranolol (INDERAL) tablet 20 mg, 20 mg, Oral, TID tamsulosin (FLOMAX) capsule 0.4 mg, 0.4 mg, Oral, Daily venlafaxine (EFFEXOR XR) extended release capsule 150 mg, 150 mg, Oral, Daily insulin lispro (HUMALOG) injection vial 0-8 Units, 0-8 Units, SubCUTAneous, TID WC insulin lispro (HUMALOG) injection vial 0-4 Units, 0-4 Units, SubCUTAneous, Nightly glucose chewable tablet 16 g, 4 tablet, Oral, PRN dextrose bolus 10% 125 mL, 125 mL, IntraVENous, PRN OR dextrose bolus 10% 250 mL, 250 mL, IntraVENous, PRN glucagon (rDNA) injection 1 mg, 1 mg, IntraMUSCular, PRN dextrose 10 % infusion, , IntraVENous, Continuous PRN lidocaine (XYLOCAINE) 2 % uro-jet, , Topical, PRN oxyCODONE (ROXICODONE) immediate release tablet 5 mg, 5 mg, Oral, Q4H PRN senna (SENOKOT) tablet 8.6 mg, 1 tablet, Oral, Nightly heparin (porcine) injection 5,000 Units, 5,000 Units, SubCUTAneous, 3 times per day brexpiprazole (REXULTI) tablet 2 mg, 2 mg, Oral, Daily insulin glargine (LANTUS) injection vial 25 Units, 25 Units, SubCUTAneous, Nightly ALPRAZolam (XANAX) tablet 0.5 mg, 0.5 mg, Oral, BID PRN gabapentin (NEURONTIN) capsule 300 mg, 300 mg, Oral, Daily polyethylene glycol (GLYCOLAX) packet 17 g, 17 g, Oral, Daily senna (SENOKOT) tablet 17.2 mg, 2 tablet, Oral, Daily PRN bisacodyl (DULCOLAX) suppository 10 mg, 10 mg, Rectal, Daily PRN Objective: BP (!) 118/92 Pulse 81 Temp 97.8 F (36.6 C) (Oral) Resp 16 Ht 6' 5 (1.956 m) Wt (!) 331 lb 2.1 oz (150.2 kg) SpO2 96% BMI 39.27 kg/m GEN: Well developed, well nourished, no acute distress HEENT: NCAT. EOM grossly intact. Hearing grossly intact. Mucous membranes pink and moist. RESP: Normal breath sounds with no wheezing, rales, or rhonchi. Respirations WNL and unlabored. CV: Regular rate and rhythm. No murmurs, rubs, or gallops. ABD: Soft, non-distended, BS+ and equal. NEURO: Alert. Speech fluent. Sensation to light touch intact. MSK: Muscle tone and bulk are normal bilaterally. Strength 4+/5 in all limbs. LIMBS: Edema present in bilateral lower limbs. SKIN: Warm and dry with good turgor. PSYCH: Mood WNL. Affect WNL. Appropriately interactive. Diagnostics: CBC: Recent Labs 07/01/2262207/03/22 0711 WBC 12.6* 11.8* RBC 3.56* 3.67* HGB 11.0* 11.2* HCT 32.9* 33.8* MCV 92.4 92.0 RDW 14.5 14.9 PLT 285 243 BMP: Recent Labs 07/01/2262207/03/22 0711 NA 136 138 K 3.9 4.3 CL 98 100 CO2 27 25 BUN 44* 47* CREATININE 4.26* 3.55* GLUCOSE 147* 159* BNP: No results for input(s): BNP in the last 72 hours. PT/INR: No results for input(s): PROTIME, INR in the last 72 hours. APTT: No results for input(s): APTT in the last 72 hours. CARDIAC ENZYMES: No results for input(s): CKMB, CKMBINDEX, TROPONINT in the last 72 hours. Invalid input(s): CKTOTAL;3 FASTING LIPID PANEL:No results found for: CHOL, HDL, TRIG LIVER PROFILE: Recent Labs 07/01/2223 AST 19 ALT 10 BILIDIR 0.1 BILITOT 0.4 ALKPHOS 94 Reviewed notes from internal medicine, nephrology, OT, PT. 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 Nephrology following. On 1500 ml fluid restriction. PT/OT for gait, mobility, strengthening, endurance, ADLs, and self care. Cystitis: On cefepime until 07/06 with HD Left hydroephrosis: S/p cysto, ureteroscopy and stent removal with stone basketing by urology 06/29. HTN/HLD: On atorvastatin, propranolol SHADE: On CPAP COPD: On albuterol prn, Symbicort BID Anemia of chronic disease: Hemoglobin 11.2 on 07/03, stable. Monitoring. Morbid obesity: BMI 39.27. Dietitian to follow DM II with neuropathy: On Lantus, sliding scale, gabapentin. Depression/anxiety: Has alprazolam prn, Rexulti, Lamictal, mirtazapine, venlafaxine. Psychiatry evaluated 06/27 - recommended continued home doses and outpatient follow up Tremors: Was previously evaluated by neurology determined to be positional tremor with some cogwheel rigidity possibly attributed to side effects of medications. For outpatient neurology follow up in2-[address] Pimentel. Gout: On allopurinol Hoarseness: Flonase added on 07/02. BPH: On flomax Bowel Management: Miralax daily, senokot prn, dulcolax prn. DVT Prophylaxis: heparin, SCD's while in bed, and HEATHER's during the day Internal medicine for medical management Follow up PCP 1-2 weeks, Urology, Nephrology, Psychiatry, Neurology * Jeanie Hunt - 07/02/2022 7:02 PM EDT Chain Maker Machine received consult to see patient; patient attempting to rest and asked fiction and nonfiction prose writer to come back tomorrow ; 07/02/22 1901 Encounter Summary Encounter Overview/Reason Spiritual/Emotional Needs Service Provided For: Patient Referral/Consult From: Nurse Last Encounter 07/02/22 Complexity of Encounter Low Spiritual/Emotional needs Type Spiritual Support Assessment/Intervention/Outcome Assessment Unable to assess Intervention Explored/Affirmed feelings, thoughts, concerns Outcome Expressed Gratitude;Engaged in conversation;Expressed feelings, needs, and concerns * Ada Vizcarra OT - 07/02/2022 2:51 PM EDT Occupational Therapy [facility] Occupational Therapy Daily Treatment Note Date: 07/02/22 Patient Name: Steven Walden Room: 2632/2632-01 Account: [id number] : 1960 (62 y.o.) Gender: male Referring Practitioner: Sahcin Mckeon MD Diagnosis: Debility Additional Pertinent Hx: 62-year-old male with fall, fever and flank pain admitted for management of DAISY-has history of CKD stage III, diabetes, hypertension hyperlipidemia, obesity presented as above. 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 Cardiology-sinus tachycardia artifact due to essential tremors, no further cardiac work-up. Treatment Diagnosis: Impaired self-care status Past Medical History: has a past medical history of Anxiety, Chronic kidney disease, Congenital heart defect, Diabetes mellitus (HCC), Gout, Hyperlipidemia, Hypertension, Major depressive disorder, Morbid obesity (HCC), Neuropathy, SHADE (obstructive sleep apnea), and Peptic ulcer disease. Past Surgical History: has a past surgical history that includes Cholecystectomy (2010); Hand surgery (Right, 12/2021); Cystoscopy (Left, 05/28/2022); IR TUNNELED CVC PLACE WO SQ PORT/PUMP > 5 YEARS (06/28/2022); Cystostomy w/ stent insertion (Left, 06/29/2022); Cystoscopy (Left, 06/29/2022); and Ureter surgery (Left, 06/29/2022). Restrictions Restrictions/Precautions Restrictions/Precautions: Fall Risk, Up as Tolerated (fell 12 times over past few months per pt) Required Braces or Orthoses?: No Implants present? : (pt denies) Position Activity Restriction Other position/activity restrictions: OT PT eval and treat Vitals Vital Signs O2 Device: None (Room air) Subjective Subjective Subjective: I would like to stretch out pt requests to lay in bed after PM session due to fatigue. Pain Assessment Pain Assessment: None - Denies Pain Objective Cognition Overall Orientation Status: Within Normal Limits Orientation Level: Oriented X4 Cognition Overall Cognitive Status: Exceptions Arousal/Alertness: Delayed responses to stimuli Following Commands: Follows multistep commands with repitition;Follows multistep commands with increased time Attention Span: Attends with cues to redirect;Difficulty attending to directions Memory: Appears intact Safety Judgement: Decreased awareness of need for safety Problem Solving: Decreased awareness of errors Insights: Decreased awareness of deficits Initiation: Requires cues for some Sequencing: Requires cues for some Cognition Comment: delayed responses at time Activities of Daily Living Feeding Assistance Level: Set-up Skilled Clinical Factors: per pt report Grooming/Oral Hygiene Assistance Level: Set-up Skilled Clinical Factors: seated sinkside to complete oral hygiene, face washing, shower cap, and hair combing Upper Extremity Bathing Assistance Level: Stand by assist Skilled Clinical Factors: seated sinkside in wheelchair to complete, CHG soap used Lower Extremity Bathing Assistance Level: Minimal assistance Skilled Clinical Factors: Min A for thoroughness of buttocks; pt able to complete remainder of LB bathing with CGA Upper Extremity Dressing Assistance Level: Stand by assist Skilled Clinical Factors: to doff overhead shirt, pt donned gown due to environmental barriers Lower Extremity Dressing Assistance Level: Contact guard assist Skilled Clinical Factors: standing with CGA to pull up over hips Putting On/Taking Off Footwear Equipment Provided: Sock aid Assistance Level: Moderate assistance Skilled Clinical Factors: TA for TEDs, pt uses sock aid to don L sock, figure 4 to don R with increased time and effort due to decreased endurance Mobility Bed Mobility Overall Assistance Level: Stand By Assist Additional Factors: (head of bed flat) Sit to Supine Assistance Level: Stand by assist Skilled Clinical Factors: head of bed flat Sit to Stand Assistance Level: Contact guard assist Skilled Clinical Factors: verbal cues for hand placement and cues to lock brakes on w/c Stand to Sit Assistance Level: Contact guard assist Skilled Clinical Factors: verbal cues for hand placement and cues to lock brakes on w/c Functional Mobility Device: Rolling walker (bariatric rolling walker) Activity: To/From bathroom Assistance Level: Contact guard assist Skilled Clinical Factors: CGA for safety as pt is slightly unsteady at times due to BLE weakness OT Exercises Static Standing Balance Exercises: PM: OTR facilitated pt engagement in game of checkers. Pt standsfor 6 minutes with SBA, unilateral hand support, no loss of balance. Motor Control/Coordination: PM: Pt engaged in fine motor coordination activity of opening/closing small self care containers. Pt demonstrates slight difficulty with screw on caps due to decreased hand coordination. Assessment Assessment Activity Tolerance: Patient limited by endurance;Patient limited by fatigue Patient Education Education Education Given To: Patient Education Provided: Role of Therapy;Plan of Care;Safety;Transfer Training;ADL Function Education Provided Comments: sock aid/adaptive equipment Education Method: Verbal;Demonstration Barriers to Learning: None Education Outcome: Verbalized understanding;Demonstrated understanding;Continued education needed OT Equipment Recommendations Other: TBD Safety Devices Safety Devices in place: Yes Type of devices: Left in bed;Call light within reach;Bed alarm in place Restraints Initially in place: No Goals Patient Goals Patient goals : To work on my stability and endurance. That's the worst part for me Pt stated in regards to his goal for occupational therapy. Short Term Goals Time Frame for Short Term Goals: By 4-5 days Short Term Goal 1: Pt will perform upper body dressing and bathing with supervision and Good safety Short Term Goal 2: Pt will perform lower body dressing/bathing with SBA, using appropriate adaptivetechniques/equipment as needed Short Term Goal 3: Pt will perform functional transfers/mobility with SBA, using least restrictive device, and Good safety Short Term Goal 4: Pt will tolerate standing for 5+ minutes, participating in dynamic standing and reaching as tolerated, during self care/functional activity of choice Short Term Goal 5: Pt will actively partcipate in therapeutic social participation activity to facilitate peer discussion regarding coping strategies and/or feelings of loss/grief related to current medical status, to promote engagement in self care and functional activities Short Term Goal 6: Pt will actively participate in 30+ minutes of therapeutic exercise/functional activity to promote safety and independence with self care and mobility Short Term Goal 7: verbalize 3+ fall prevention strategies to implement into home environment to engage in ADLs safely Water And [employer] Helper Goals Time Frame for Water And Gas Helper Goals : By discharge Water And Gas Helper Goal 1: Pt will perform BADLs mod I, using appropriate adaptive techniques/equipment, andGood safety Halfway Goal 2: Pt will perform functional transfers/mobility, using least restrictive device, mod I and Good safety Halfway Goal 3: Pt will tolerate standing for 10+ minutes, participating in dynamic standing and reaching as tolerated, during self care/functional activity of choice Water And Gas Helper Goal 4: Pt will V/D use of energy conservation/work simplification techniques to increaseIND during daily routine Halfway Goal 5: Pt will V/D at least three fall prevention/home safety modifications that are applicable to his daily routine and home environment Halfway Goal 6: Pt will improve opening small containers during self-care tasks as evidenced by 5seconds improvement on 9 hole peg test and 5# improvement of uniform designer strength Halfway Goal 7: Pt will perform light housekeeping/simple meal preparation with supervision, using adaptive techniques as needed, and Good safety Plan Occupational Therapy Plan Times Per Week: 900 minutes between OT/PT/SOCIAL SERVICE ASSISTANT Current Treatment Recommendations: Strengthening, Balance training, ROM, Functional mobility training, Endurance training, Safety education & training, Equipment evaluation, education, & procurement, Patient/Caregiver education & training, Self-Care / ADL, Positioning, Home management training, Coordination training OT Individual Minutes 07/02/22 1439 07/02/22 1451 OT Individual Minutes Time In 1100 1407 Time Out 1202 1437 Minutes 62 30 Time Code Minutes Timed Code Treatment Minutes 62 Minutes 30 Minutes * Janet Emmanuel, STOCKKEEPER - 07/02/2022 2:09 PM EDT Physical Therapy Facility/Department: [facility] Rehabilitation Physical Therapy Daily Treatment Note NAME: Steven Walden : 1960 (62 y.o.) CODE STATUS: Full Code Date of Service: 07/02/22 Chart Reviewed: Yes Patient assessed for rehabilitation services?: Yes Additional Pertinent Hx: He initially presented with left flank pain, fevers, and chills for 3 days. 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 He was started on hemodialysis on 06/24/22. He then underwent cystoscopy, ureteroscopy, left stent removal, and stone basketing on 06/29/22 (Dr. Myles). ID is recommending cefepime with dialysis until 07/02/22. Admitted to [facility] 06/30/22. Family / Caregiver Present: No Referring Practitioner: Sachin Mckeon MD Referral Date : 06/30/22 Diagnosis: debility Restrictions: Restrictions/Precautions: Fall Risk;Up as Tolerated (fell 12 times over past few months per pt) Position Activity Restriction Other position/activity restrictions: OT PT eval and treat SUBJECTIVE Subjective: Pt is sitting up on EOB upon arrival. Agreeable to PT. Pt reports a burning sensation in BLE's anterior thigh area. Pt reports 3-4/10 with mobility, however subsides at rest. RN informed.PM:Pt is agreeable to PT despite fatigue. Pain: Pt reports a burning sensation on anterior thighs of BLE's rating 3-4/10 with mobility and subsides at rest. OBJECTIVE Vision Vision: Impaired Vision Exceptions: Wears glasses at all times Hearing Hearing: Within functional limits Cognition Overall Cognitive Status: Exceptions Arousal/Alertness: Delayed responses to stimuli Following Commands: Follows multistep commands with repitition;Follows multistep commands with increased time Attention Span: Attends with cues to redirect;Difficulty attending to directions Memory: Appears intact Safety Judgement: Decreased awareness of need for safety Problem Solving: Decreased awareness of errors Insights: Decreased awareness of deficits Initiation: Requires cues for some Sequencing: Requires cues for some Cognition Comment: delayed responses at time Sensation Overall Sensation Status: Impaired (Neuropathy in B hands/feet) Functional Mobility Bed mobility Rolling to Left: Stand by assistance Supine to Sit: Stand by assistance Scooting: Stand by assistance Bed Mobility Comments: HOB flat, use of hand rail from supine->sit. Transfers Sit to Stand: Contact guard assistance Stand to Sit: Contact guard assistance Bed to Chair: Contact guard assistance Comment: CGA with RW. Good hand placement throughout tx with all transfers. Decrease eccentric control noted this date with all stand to sit transfers d/t increase fatigue. Balance Posture: Fair Sitting - Static: Good;- Sitting - Dynamic: Good;- Standing - Static: Fair Standing - Dynamic: Fair Comments: Standing balance with RW Environmental Mobility Ambulation Surface: Level tile Device: Rolling Walker Other Apparatus: Wheelchair follow Assistance: Contact guard assistance Quality of Gait: slow moving, forward flexed posture, small steps. Increase shakiness noted. Pt requires short standing rest breaks d/t fatigue/weakness. Gait Deviations: Slow Reyna;Decreased step length Distance: 87'x3 and 40'x2 (AM) and 15'x1 (PM) Comments: Good negotiation of RW. Had chair nearby in case but was not needed. More Ambulation?: No Stairs/Curb Stairs?: Yes Stairs # Steps : 10 Stairs Height: 4 (and 6 ) Rails: Left ascending Assistance: Contact guard assistance Comment: Pt is able to complete a step through gait pattern. Cues for foot placement with fair + carryover. No LOB noted, however pt continues to demo increase shakiness > with descending stairs. PT Exercises Resistive Exercises: BLE seated exercise green tband, 1.5# weights, BLE x10-15 reps Dynamic Standing Balance Exercises: Sm/Lg hurdles in // bars with BUE support. Pt requires cues fortechnique with fair carryover. Pt demos difficulties clearing Lg hurdles this date. Exercise Equipment: nustep L2 12 minutes. ASSESSMENT Vitals O2 Device: PAP (positive airway pressure) Activity Tolerance Activity Tolerance: Patient limited by endurance;Patient limited by fatigue Assessment Assessment: Pt very motivated and cooperative, easy going. Pt is a 1 assist and mobile with RW. Will continue to work on strengthening, balance and endurance Performance Deficits/Impairments: Decreased ADL status;Decreased functional mobility ;Decreased strength;Decreased posture;Decreased balance;Decreased endurance;Decreased ROM;Decreased sensation Treatment Diagnosis: impaired functional mobility 2* weakness and falls Therapy Prognosis: Good Decision Making: Medium Complexity Exam: ROM, MMT, Bed mobility, transfers, amb, balance Clinical Presentation: Pt cooperative, alert, motivated Barriers to Learning: increased processing time, assisted with education Discharge Recommendations: Continue to assess pending progress;Home with assist PRN PT D/C Equipment Equipment Needed: (TBD) Walker: Rolling PT Equipment Recommendations Equipment Needed: Yes (ambulates with cane at home, CTA at IPR) Walker: Rolling CLINICAL IMPRESSION Pt very motivated and cooperative, easy going. Pt is a 1 assist and mobile with RW. Will continue to work on strengthening, balance and endurance GOALS Patient Goals Patient Goals : To get more stable Short Term Goals Time Frame for Short Term Goals: 5 days Short Term Goal 1: Pt to demo IND bed mobility from flat surface. Short Term Goal 2: Pt to peform transfers SBA. Short Term Goal 3: Pt to amb 150' on level surfaces SBA. Short Term Goal 4: Pt to improve posture/sitting balance to GOOD. Short Term Goal 5: pt to perform 5 minutes on the nustep for increased endurance and speed, BUE/LE Water And Gas Helper Goals Time Frame for Water And Gas Helper Goals : by D/C Halfway Goal 1: Pt to demo IND transfers from varied surface heights. Halfway Goal 2: Pt to amb 200' with least restrictive device on varied surfaces, MOD I Water And Gas Helper Goal 3: Pt to ascend/descend at least 8 stairs per home entry, SBA. Water And Gas Helper Goal 4: Pt to score at least a 24 on Tinetti to improve standing balance to GOOD and reduce risk of falls for safe D/C. Halfway Goal 5: pt to improve BLE strength by 1/2 MMG. Additional Goals?: Yes retirement goal 6: Pt to complete 2MWT wtih distance of at least 175' with device, MOD I. retirement goal 7: Pt to improve 5xSTS to 20 seconds or less. PLAN OF CARE Physcial Therapy Plan General Plan: Other (See Comment) (900 minutes/week of combined PT/OT due to decreased endurance) Specific Instructions for Next Treatment: nustep, balance, gait Current Treatment Recommendations: Strengthening;ROM;Balance training;Gait training;Therapeutic activities;Patient/Caregiver education & training;Transfer training;Endurance training;Equipment evaluation, education, & procurement;Stair training;Functional mobility training;Home exercise program;Safety education & training Safety Devices Type of Devices: Nurse notified;Call light within reach;Patient at risk for falls;All fall risk precautions in place;Gait belt;Left in chair (nurse Lebron) Restraints Restraints Initially in Place: No Therapy Time 07/02/22 1012 07/02/22 1409 PT Individual Minutes Time In 1012 1337 Time Out 1059 1405 Minutes 47 28 Janet Emmanuel PTA, 07/02/22 at 2:09 PM * Sachin Mckeon MD - 07/02/2022 11:56 AM EDT Physical Medicine & Rehabilitation Progress Note Subjective: 62 year-old male with Debility secondary to renal failure. Patient is well, but has had some minor complaints of hoarse voice and frequent throat clearing. No new issues with sleep, appetite, pain, bowel, or bladder. ROS: Denies fevers, chills, sweats. No chest pain, palpitations, lightheadedness. Denies coughing, wheezing or shortness of breath. Denies abdominal pain, nausea, diarrhea or constipation. No new areas of joint pain. Denies new areas of numbness or weakness. Denies new anxiety or depression issues. No new skin problems. Rehabilitation: Progressing in therapies. PT: Bed mobility Rolling to Left: Stand by assistance Supine to Sit: Stand by assistance Sit to Supine: Stand by assistance Scooting: Stand by assistance Bed Mobility Comments: HOB flat, use of hand rail from supine->sit. Transfers Sit to Stand: Contact guard assistance Stand to Sit: Contact guard assistance Bed to Chair: Contact guard assistance Comment: CGA with RW. Good hand placement throughout tx with all transfers. Ambulation Surface: Level tile Device: Rolling Walker Other Apparatus: Wheelchair follow Assistance: Contact guard assistance Quality of Gait: slow moving, forward flexed posture, small steps. Increase shakiness noted. Pt requires short standing rest breaks d/t fatigue/weakness. Gait Deviations: Slow Reyna, Decreased step length Distance: 262' and 40'x2 Comments: Good negotiation of RW. Had chair nearby in case but was not needed. More Ambulation?: No OT: SPEECH: Objective: BP 126/84 Pulse 70 Temp 98.1 F (36.7 C) Resp 13 Ht 6' 5 (1.956 m) Wt (!) 326 lb 1 oz (147.9 kg) SpO2 95% BMI 38.67 kg/m GEN: Well developed, well nourished, in NAD HEENT: NCAT. PERRL. EOMI. Mucous membranes pink and moist. PULM: Clear to ausculation. No rales or rhonchi. Respirations WNL and unlabored. CV: Regular rate rhythm. No murmurs or gallops. GI: Abdomen soft. Nontender. Non-distended. BS + and equal. NEUROLOGICAL: A&O x3. Sensation intact to light touch. MSK: Functional ROM BUE and BLEs. Motor testing 4+/5 [place] muscles BUEs, 4/5 [place] muscles BLEs. SKIN: Warm dry and intact. Good turgor. EXTREMITIES: No calf tenderness to palpation. 1+ edema BLEs. PSYCH: Mood WNL. Appropriately interactive. Affect flat. Diagnostics: CBC: Recent Labs 06/30/22 0958 07/01/2223 WBC 13.6* 12.6* RBC 3.76* 3.56* HGB 11.6* 11.0* HCT 36.0* 32.9* MCV 95.7 92.4 RDW 13.7 14.5 PLT 276 285 BMP: Recent Labs 06/30/22 0958 07/01/22622 NA 137 136 K 3.7 3.9 CL 98 98 CO2 26 27 BUN 32* 44* CREATININE 3.70* 4.26* GLUCOSE 209* 147* BNP: No results for input(s): BNP in the last 72 hours. PT/INR: No results for input(s): PROTIME, INR in the last 72 hours. APTT: No results for input(s): APTT in the last 72 hours. CARDIAC ENZYMES: No results for input(s): CKMB, CKMBINDEX, TROPONINT in the last 72 hours. Invalid input(s): CKTOTAL;3 troponins FASTING LIPID PANEL:No results found for: CHOL, HDL, TRIG LIVER PROFILE: Recent Labs 07/01/22 0623 AST 19 ALT 10 BILIDIR 0.1 BILITOT 0.4 ALKPHOS 94 Current Medications: Current Facility-Administered Medications: cefepime (MAXIPIME) 2,000 mg in sodium chloride 0.9 % 50mL IVPB (mini-bag), 2,000 mg, IntraVENous, Once per day on Tue Sat anticoagulant sodium citrate 4 % injection 1.8 mL, 1.8 mL, IntraCATHeter, PRN anticoagulant sodium citrate 4 % injection 1.7 mL, 1.7 mL, IntraCATHeter, PRN albuterol sulfate HFA (PROVENTIL;VENTOLIN;PROAIR) 108 (90 Base) MCG/ACT inhaler 2 puff, 2 puff, Inhalation, Q6H PRN allopurinol (ZYLOPRIM) tablet 100 mg, 100 mg, Oral, Daily atorvastatin (LIPITOR) tablet 20 mg, 20 mg, Oral, Nightly budesonide-formoterol (SYMBICORT) 80-4.5 MCG/ACT inhaler 2 puff, 2 puff, Inhalation, BID lamoTRIgine (LAMICTAL) tablet 200 mg, 200 mg, Oral, Daily mirtazapine (REMERON) tablet 30 mg, 30 mg, Oral, Nightly pantoprazole (PROTONIX) tablet 40 mg, 40 mg, Oral, QAM AC propranolol (INDERAL) tablet 20 mg, 20 mg, Oral, TID tamsulosin (FLOMAX) capsule 0.4 mg, 0.4 mg, Oral, Daily venlafaxine (EFFEXOR XR) extended release capsule 150 mg, 150 mg, Oral, Daily insulin lispro (HUMALOG) injection vial 0-8 Units, 0-8 Units, SubCUTAneous, TID WC insulin lispro (HUMALOG) injection vial 0-4 Units, 0-4 Units, SubCUTAneous, Nightly glucose chewable tablet 16 g, 4 tablet, Oral, PRN dextrose bolus 10% 125 mL, 125 mL, IntraVENous, PRN OR dextrose bolus 10% 250 mL, 250 mL, IntraVENous, PRN glucagon (rDNA) injection 1 mg, 1 mg, IntraMUSCular, PRN dextrose 10 % infusion, , IntraVENous, Continuous PRN lidocaine (XYLOCAINE) 2 % uro-jet, , Topical, PRN oxyCODONE (ROXICODONE) immediate release tablet 5 mg, 5 mg, Oral, Q4H PRN senna (SENOKOT) tablet 8.6 mg, 1 tablet, Oral, Nightly heparin (porcine) injection 5,000 Units, 5,000 Units, SubCUTAneous, 3 times per day brexpiprazole (REXULTI) tablet 2 mg, 2 mg, Oral, Daily insulin glargine (LANTUS) injection vial 25 Units, 25 Units, SubCUTAneous, Nightly ALPRAZolam (XANAX) tablet 0.5 mg, 0.5 mg, Oral, BID PRN gabapentin (NEURONTIN) capsule 300 mg, 300 mg, Oral, Daily acetaminophen (TYLENOL) tablet 650 mg, 650 mg, Oral, Q4H PRN polyethylene glycol (GLYCOLAX) packet 17 g, 17 g, Oral, Daily senna (SENOKOT) tablet 17.2 mg, 2 tablet, Oral, Daily PRN bisacodyl (DULCOLAX) suppository 10 mg, 10 mg, Rectal, Daily PRN Impression/Plan: Impaired ADLs, gait, and mobility due to: Debility secondary to renal failure: on HD via tunnel cath placed 06/24. Nephrology following. On 1500 ml fluid restriction. PT/OT for gait, mobility, strengthening, endurance, ADLs, and self care. Cystitis: on cefepime until 07/06 with HD L hydroephrosis: s/p cysto, ureteroscopy and stent removal with stone basketing by urology 06/29. HTN/HLD: on atorvastatin, propranolol SHADE: on CPAP COPD: on albuterol prn, Symbicort BID Anemia of chronic disease. Morbid obesity: BMI 39. Dietitian to follow DM II with neuropathy: on Lantus, sliding scale, gabapentin. Depression/anxiety: has alprazolam prn, Rexulti, Lamictal, mirtazapine, venlafaxine. Psychiatry evaluated 06/27 - recommended continued home doses and outpatient follow up Tremors: was previously evaluated by neurology determined to be positional tremor with some cogwheel rigidity possibly attributed to side effects of medications. For outpatient neurology follow up in2-[address] Pimentel. Gout: on allopurinol Hoarseness: will add trial of Flonase BPH: on flomax Bowel Management: Miralax daily, senokot prn, dulcolax prn. DVT Prophylaxis: heparin, SCD's while in bed, and HEATHER's during the day Internal medicine for medical management This note is created with the assistance of a speech recognition program. While intending to generate a document that actually reflects the content of the visit, the document can still have some errors including those of syntax and sound a like substitutions which may escape proof reading. In such instances, actual meaning can be extrapolated by contextual diversion. * Mandeep Davenport RN - 07/01/2022 8:24 PM EDT HEMODIALYSIS POST TREATMENT NOTE Treatment time ordered: 3.15 Hours Actual treatment time: 3 hours 28 minutes UltraFiltration Goal: 2583-1857 L as tolerated UltraFiltration Removed: 2000 ml Pre Treatment weight: 149.9 kg Post Treatment weight: 147.9 kg Estimated Dry Weight: TBD Access used: Central Venous Catheter: Tunneled or Non-tunneled: Tunneled Site: Right chest wall Access Flow: Good with lines reversed Internal Access: AV Fistula or AV Graft: Site: Access Flow: Sign and symptoms of infection: If YES: Medications or blood products given: None Chronic outpatient schedule: TTS Chronic outpatient unit: TBD Summary of response to treatment: Patient tolerated treatment well. System clotted once during treatment thus delaying ending time slightly. Patient awake with vitals stable post blood return. Pigtail lumens ran in reverse all treatment to promote better blood flow. Both flushed well with normal saline, clamped, and locked with Sodium citrate. Target goal was met without interventions for BP support. Explain if orders NOT met, was physician notified: [facility] flowsheet faxed to patient unit/ placed in patient chart: Faxed to patient unit. Floor staff to place in hospital chart. Post assessment completed: Yes Report given to: Kourtney Farr RN * Intra-treatment documented Safety Checks include the followin) Access and face visible at all times. 2) All connections and blood lines are secure with no kinks. 3) NVL alarm engaged. 4) Hemosafe device applied (if applicable). 5) No collapse of Arterial or Venous blood chambers. 6) All blood lines / pump segments in the air detectors. * Steph George - 07/01/2022 4:39 PM EDT HEMODIALYSIS PRE-TREATMENT NOTE Patient Identifiers prior to treatment: name, birthdate and band Isolation Required: na Isolation Type: na (please document if patient is being managed as a PUI/COVID-19 patient) Hepatitis status: Date Drawn Result Hepatitis B Surface Antigen 06/21/2022 neg Hepatitis B Surface Antibody 06/21/2022 neg Hepatitis B Core Antibody How was Hepatitis Status verified: labs Was a copy of the labs you documented provided to facility for the patient's chart: yes Hemodialysis orders verified: yes Access Within normal limits ( I.e. s/s of infection,...): yes Pre-Assessment completed: yes Pre-dialysis report received from: Alba Miller Rn Time: 1400 * Janet Emmanuel PTA - 07/01/2022 3:54 PM EDT Physical Therapy Facility/Department: [facility] Rehabilitation Physical Therapy Daily Treatment Note NAME: Steven Walden : 1960 (62 y.o.) CODE STATUS: Full Code Date of Service: 07/01/22 Chart Reviewed: Yes Patient assessed for rehabilitation services?: Yes Additional Pertinent Hx: He initially presented with left flank pain, fevers, and chills for 3 days. 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 He was started on hemodialysis on 06/24/22. He then underwent cystoscopy, ureteroscopy, left stent removal, and stone basketing on 06/29/22 (Dr. Myles). ID is recommending cefepime with dialysis until 07/02/22. Admitted to [facility] 06/30/22. Family / Caregiver Present: No Referring Practitioner: Sachin Mckeon MD Referral Date : 06/30/22 Diagnosis: debility Restrictions: Restrictions/Precautions: Fall Risk;Up as Tolerated (fell 12 times over past few months per pt) Position Activity Restriction Other position/activity restrictions: OT PT eval and treat SUBJECTIVE Subjective: Pt in recliner, agreeable to PT. Pt request to return to bed post tx d/t increase fatigue. Pain: Pt denied pain at beginning and end of session OBJECTIVE Vision Vision: Impaired Vision Exceptions: Wears glasses at all times Hearing Hearing: Within functional limits Cognition Overall Cognitive Status: Exceptions Arousal/Alertness: Delayed responses to stimuli Following Commands: Follows multistep commands with repitition;Follows multistep commands with increased time Attention Span: Attends with cues to redirect;Difficulty attending to directions Memory: Appears intact Safety Judgement: Decreased awareness of need for safety Problem Solving: Decreased awareness of errors Insights: Decreased awareness of deficits Initiation: Requires cues for some Sequencing: Requires cues for some Cognition Comment: delayed responses at time Sensation Overall Sensation Status: Impaired (Neuropathy in B hands/feet) Functional Mobility Bed mobility Rolling to Left: Stand by assistance Sit to Supine: Stand by assistance Scooting: Stand by assistance Bed Mobility Comments: HOB flat, use of hand rail from supine->sit. Transfers Sit to Stand: Contact guard assistance Stand to Sit: Contact guard assistance Bed to Chair: Contact guard assistance Comment: CGA with RW. 5xSTS test in 40 seconds this pm. Good hand placement throughout tx with all transfers. Balance Posture: Fair Sitting - Static: Good;- Sitting - Dynamic: Good;- Standing - Static: Fair Standing - Dynamic: Fair Comments: Standing balance with RW Environmental Mobility Ambulation Surface: Level tile Device: Rolling Walker Assistance: Contact guard assistance Quality of Gait: slow moving, forward flexed posture, small steps. Increase shakiness noted. Gait Deviations: Slow Reyna;Decreased step length Distance: 10'x2 (TUG: completed in 39.51sec) Comments: Good negotiation of RW. Had chair nearby in case but was not needed. More Ambulation?: No Stairs/Curb Stairs?: No PT Exercises Exercise Treatment: 5xSTS test: 40 seconds A/AROM Exercises: standing BLE exs x 10- marching, 3way hip, HS curls, Heel raises. RW for BUE support. (CGA progressing to Rebekah d/t fatigue. Seated ex's between each d/t fatigue.) ASSESSMENT Vitals O2 Device: None (Room air) Activity Tolerance Activity Tolerance: Patient tolerated treatment well;Patient limited by endurance Assessment Assessment: Pt very motivated and cooperative, easy going. Pt is a 1 assist and mobile with RW. Will continue to work on strengthening, balance and endurance Performance Deficits/Impairments: Decreased ADL status;Decreased functional mobility ;Decreased strength;Decreased posture;Decreased balance;Decreased endurance;Decreased ROM;Decreased sensation Treatment Diagnosis: impaired functional mobility 2* weakness and falls Therapy Prognosis: Good Decision Making: Medium Complexity Exam: ROM, MMT, Bed mobility, transfers, amb, balance Clinical Presentation: Pt cooperative, alert, motivated Barriers to Learning: increased processing time, assisted with education Discharge Recommendations: Continue to assess pending progress;Home with assist PRN PT D/C Equipment Equipment Needed: (TBD) Walker: Rolling PT Equipment Recommendations Equipment Needed: Yes (ambulates with cane at home, CTA at IPR) Walker: Rolling CLINICAL IMPRESSION Pt very motivated and cooperative, easy going. Pt is a 1 assist and mobile with RW. Will continue to work on strengthening, balance and endurance GOALS Patient Goals Patient Goals : To get more stable Short Term Goals Time Frame for Short Term Goals: 5 days Short Term Goal 1: Pt to demo IND bed mobility from flat surface. Short Term Goal 2: Pt to peform transfers SBA. Short Term Goal 3: Pt to amb 150' on level surfaces SBA. Short Term Goal 4: Pt to improve posture/sitting balance to GOOD. Short Term Goal 5: pt to perform 5 minutes on the nustep for increased endurance and speed, BUE/LE Water And Gas Helper Goals Time Frame for Halfway Goals : by D/C Halfway Goal 1: Pt to demo IND transfers from varied surface heights. Halfway Goal 2: Pt to amb 200' with least restrictive device on varied surfaces, MOD I Halfway Goal 3: Pt to ascend/descend at least 8 stairs per home entry, SBA. Water And Gas Helper Goal 4: Pt to score at least a 24 on Tinetti to improve standing balance to GOOD and reduce risk of falls for safe D/C. Halfway Goal 5: pt to improve BLE strength by 1/2 MMG. Additional Goals?: Yes rat exterminator goal 6: Pt to complete 2MWT wtih distance of at least 175' with device, MOD I. retirement goal 7: Pt to improve 5xSTS to 20 seconds or less. PLAN OF CARE Physcial Therapy Plan General Plan: Other (See Comment) (900 minutes/week of combined PT/OT due to decreased endurance) Specific Instructions for Next Treatment: nustep, balance, gait Current Treatment Recommendations: Strengthening;ROM;Balance training;Gait training;Therapeutic activities;Patient/Caregiver education & training;Transfer training;Endurance training;Equipment evaluation, education, & procurement;Stair training;Functional mobility training;Home exercise program;Safety education & training Safety Devices Type of Devices: Nurse notified;Call light within reach;Patient at risk for falls;All fall risk precautions in place;Gait belt;Left in chair (nurse Lebron) Restraints Restraints Initially in Place: No Therapy Time Individual Concurrent Group Co-treatment Time In 1339 Time Out 1412 Minutes 33 Janet Emmanuel PTA, 07/01/22 at 3:54 PM * Sophia Greco PT - 07/01/2022 1:29 PM EDT Physical Therapy Facility/Department: [facility] Physical Therapy Initial Assessment Name: Steven Walden : 1960 Date of Service: 07/01/2022 Discharge Recommendations: Continue to assess pending progress, Home with assist PRN Patient Diagnosis(es): There were no encounter diagnoses. Past Medical History: has a past medical history of Anxiety, Chronic kidney disease, Congenital heart defect, Diabetes mellitus (HCC), Gout, Hyperlipidemia, Hypertension, Major depressive disorder, Morbid obesity (HCC), Neuropathy, SHADE (obstructive sleep apnea), and Peptic ulcer disease. Past Surgical History: has a past surgical history that includes Cholecystectomy (2010); Hand surgery (Right, 12/2021); Cystoscopy (Left, 05/28/2022); IR TUNNELED CVC PLACE WO SQ PORT/PUMP > 5 YEARS (06/28/2022); Cystostomy w/ stent insertion (Left, 06/29/2022); Cystoscopy (Left, 06/29/2022); and Ureter surgery (Left, 06/29/2022). Assessment Assessment: Pt very motivated and cooperative, easy going. Pt is a 1 assist and mobile with RW. Will continue to work on strengthening, balance and endurance Treatment Diagnosis: impaired functional mobility 2* weakness and falls Specific Instructions for Next Treatment: nustep, balance, gait Therapy Prognosis: Good Decision Making: Medium Complexity Exam: ROM, MMT, Bed mobility, transfers, amb, balance Clinical Presentation: Pt cooperative, alert, motivated Requires PT Follow-Up: Yes Activity Tolerance Activity Tolerance: Patient tolerated treatment well;Patient limited by endurance Plan Physcial Therapy Plan General Plan: Other (See Comment) (900 minutes/week of combined PT/OT due to decreased endurance) Specific Instructions for Next Treatment: nustep, balance, gait Current Treatment Recommendations: Strengthening, ROM, Balance training, Gait training, Therapeuticactivities, Patient/Caregiver education & training, Transfer training, Endurance training, Equipment evaluation, education, & procurement, Stair training, Functional mobility training, Home exercise program, Safety education & training Safety Devices Type of Devices: Nurse notified, Call light within reach, Patient at risk for falls, All fall risk precautions in place, Gait belt, Left in chair (nurse Lebron) Restraints Restraints Initially in Place: No Restrictions Restrictions/Precautions Restrictions/Precautions: Fall Risk, Up as Tolerated (fell 12 times over past few months per pt) Required Braces or Orthoses?: No Implants present? : (pt denies) Position Activity Restriction Other position/activity restrictions: OT PT eval and treat Subjective Pain: Pt denied pain at beginning and end of session General Chart Reviewed: Yes Patient assessed for rehabilitation services?: Yes Additional Pertinent Hx: He initially presented with left flank pain, fevers, and chills for 3 days. 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 He was started on hemodialysis on 06/24/22. He then underwent cystoscopy, ureteroscopy, left stent removal, and stone basketing on 06/29/22 (Dr. Myles). ID is recommending cefepime with dialysis until 07/02/22. [facility]. Family / Caregiver Present: No Referring Practitioner: Sachin Mckeon MD Referral Date : 06/30/22 Diagnosis: debility Follows Commands: Within Functional Limits Subjective Subjective: Pt in bed, agreeable to PT.Nurse is Lebron today. Social/Functional History Social/Functional History Lives With: Spouse Type of Home: House Home Layout: One level Home Access: Stairs to enter with rails Entrance Stairs - Number of Steps: 8 Entrance Stairs - Rails: Right Bathroom Shower/Tub: Walk-in shower, Curtain Bathroom Toilet: Standard Bathroom Equipment: Shower chair, Grab bars in shower, Grab bars around toilet, Hand-held shower Bathroom Accessibility: Not accessible (Pt reported that walker may too tight to fit into bathroom) Home Equipment: Cane (CPAP machine for night only) Has the patient had two or more falls in the past year or any fall with injury in the past year?: Yes (Pt reported four falls since discharge from [facility] on 06-11-2022) Receives Help From: Family ADL Assistance: Needs assistance (Pt reported that he is independent with feeding, bathing, and toileting; occasional assist from spouse for foot level care) Ambulation Assistance: Independent (used cane PRN) Transfer Assistance: Independent Active Scada Operator: No Patient's Scada Operator Info: Spouse Mode of Transportation: Van Occupation: On disability 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 No therapy upon discharge from [facility]. Also has daughter who is currently not working. Vision/Hearing Vision Vision: Impaired Vision Exceptions: Wears glasses at all times Hearing Hearing: Within functional limits Cognition Orientation Overall Orientation Status: Within Normal Limits Objective Heart Rate: 72 BP: 125/80 MAP (Calculated): 95 Resp: 18 SpO2: 93 % O2 Device: None (Room air) Observation/Palpation Edema: BLE edema noted AROM RLE (degrees) RLE AROM: WFL AROM LLE (degrees) LLE AROM : WFL AROM RUE (degrees) RUE General AROM: See OT AROM LUE (degrees) LUE General AROM: See OT Strength RLE Strength RLE: WFL Comment: Grossly 4-/5 Strength LLE Strength LLE: WFL Comment: Grossly 4-/5 Strength RUE Comment: See OT Strength LUE Comment: See OT Sensation Overall Sensation Status: Impaired (Neuropathy in B hands/feet) Bed mobility Rolling to Left: Stand by assistance Supine to Sit: Stand by assistance Sit to Supine: Stand by assistance Scooting: Stand by assistance Bed Mobility Comments: HOB flat, use of hand rail from supine->sit. Denied feeling lightheaded upon sitting EOB. Pt up in recliner for lunch end of session. Transfers Sit to Stand: Contact guard assistance Stand to Sit: Contact guard assistance Bed to Chair: Contact guard assistance Comment: CGA with RW. 5xSTS test in 38 seconds Ambulation Surface: Level tile Device: Rolling Walker Assistance: Contact guard assistance Quality of Gait: slow moving, forward flexed posture, small steps Gait Deviations: Slow Reyna;Decreased step length Distance: 2MWT: 106', additional 17' Comments: Good negotiation of RW. Had chair nearby in case but was not needed. Stairs/Curb Stairs?: No Balance Posture: Fair Sitting - Static: Good;- Sitting - Dynamic: Good;- Standing - Static: Fair Standing - Dynamic: Fair Comments: Standing balance with RW Exercise Treatment: 5xSTS test: 38 seconds Resistive Exercises: BLE seated exercise green tband, 1# weights, BLE x15 reps OutComes Score Balance Score: 10 (07/01/22 132) Gait Score: 9 (07/01/22 132) Tinetti Total Score: 19 (07/01/22 132) Tinneti Score Balance Score: 10 (07/01/22 132) Gait Score: 9 (07/01/22 1327) Tinetti Total Score: 19 (07/01/22 1327) Tinetti Disability Index: 20-39% (07/01/22 132) 5xSTS: 38 seconds 2MWT: 106' CGA with RW Goals Short Term Goals Time Frame for Short Term Goals: 5 days Short Term Goal 1: Pt to demo IND bed mobility from flat surface. Short Term Goal 2: Pt to peform transfers SBA. Short Term Goal 3: Pt to amb 150' on level surfaces SBA. Short Term Goal 4: Pt to improve posture/sitting balance to GOOD. Short Term Goal 5: pt to perform 5 minutes on the nustep for increased endurance and speed, BUE/LE Halfway Goals Time Frame for Water And Gas Helper Goals : by D/C Water And Gas Helper Goal 1: Pt to demo IND transfers from varied surface heights. Water And Gas Helper Goal 2: Pt to amb 200' with least restrictive device on varied surfaces, MOD I Halfway Goal 3: Pt to ascend/descend at least 8 stairs per home entry, SBA. Halfway Goal 4: Pt to score at least a 24 on Tinetti to improve standing balance to GOOD and reduce risk of falls for safe D/C. Water And Gas Helper Goal 5: pt to improve BLE strength by 1/2 MMG. Additional Goals?: Yes retirement goal 6: Pt to complete 2MWT wtih distance of at least 175' with device, MOD I. rat exterminator goal 7: Pt to improve 5xSTS to 20 seconds or less. Patient Goals Patient Goals : To get more stable Education Patient Education Education Given To: Patient Education Provided: Role of Therapy;Plan of Care;Precautions;Transfer Training;Equipment;Fall Prevention Strategies Education Method: Demonstration;Verbal Barriers to Learning: None Education Outcome: Continued education needed Therapy Time Individual Concurrent Group Co-treatment Time In 1050 Time Out 1135 Minutes 45 Timed Code Treatment Minutes: 25 Minutes Sophia Greco PT * PENNY Barbosa/Jevon - 07/01/2022 1:17 PM EDT Occupational Therapy [facility] Acute Rehabilitation Occupational Therapy Evaluation Date: 07/01/22 Patient Name: Steven Walden Room: 2632/2632-01 Account: [id number] : 1960 (62 y.o.) Gender: male Referring Practitioner: Sachin Mckeon MD Diagnosis: Debility Additional Pertinent Hx: 62-year-old male with fall, fever and flank pain admitted for management of DAISY-has history of CKD stage III, diabetes, hypertension hyperlipidemia, obesity presented as above. 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 Cardiology-sinus tachycardia artifact due to essential tremors, no further cardiac work-up. Treatment Diagnosis: Impaired self-care status Past Medical History: has a past medical history of Anxiety, Chronic kidney disease, Congenital heart defect, Diabetes mellitus (HCC), Gout, Hyperlipidemia, Hypertension, Major depressive disorder, Morbid obesity (HCC), Neuropathy, SHADE (obstructive sleep apnea), and Peptic ulcer disease. Past Surgical History: has a past surgical history that includes Cholecystectomy (2010); Hand surgery (Right, 12/2021); Cystoscopy (Left, 05/28/2022); IR TUNNELED CVC PLACE WO SQ PORT/PUMP > 5 YEARS (06/28/2022); Cystostomy w/ stent insertion (Left, 06/29/2022); Cystoscopy (Left, 06/29/2022); and Ureter surgery (Left, 06/29/2022). Restrictions Restrictions/Precautions: Fall Risk, Up as Tolerated (fell 12 times over past few months per pt) Required Braces or Orthoses?: No Implants present? : (pt denies) Position Activity Restriction Other position/activity restrictions: OT PT eval and treat Vitals Vitals SpO2: 91 % O2 Device: None (Room air) Subjective Subjective: To work on my stability and endurance. That's the worst part for me Pt stated in regards to his goal for occupational therapy. Comments: Okay for OT evaluation and treatment per STATISTICIAN THEORETICAL Vitor. Okay to shower but seal dialysis port per STATISTICIAN THEORETICAL Pain: Pt denied pain at beginning and end of session Social/Functional History Social/Functional History Lives With: Spouse Type of Home: House Home Layout: One level Home Access: Stairs to enter with rails Entrance Stairs - Number of Steps: 8 Entrance Stairs - Rails: Right Bathroom Shower/Tub: Walk-in shower, Curtain Bathroom Toilet: Standard Bathroom Equipment: Shower chair, Grab bars in shower, Grab bars around toilet, Hand-held shower Bathroom Accessibility: Not accessible (Pt reported that walker may too tight to fit into bathroom) Home Equipment: Cane (CPAP machine for night only) Has the patient had two or more falls in the past year or any fall with injury in the past year?: Yes (Pt reported four falls since [facility]) Receives Help From: Family ADL Assistance: Needs assistance (Pt reported that he is independent with feeding, bathing, and toileting; occasional assist from spouse for foot level care) Homemaking Assistance: Independent Homemaking Responsibilities: Yes (Shares responsibiltiies with spouse) Meal Prep Responsibility: Secondary Laundry Responsibility: Secondary Cleaning Responsibility: Secondary Shopping Responsibility: Secondary Ambulation Assistance: Independent (used cane PRN) Transfer Assistance: Independent Active Scada Operator: No Patient's Scada Operator Info: Spouse Mode of Transportation: Van Occupation: On disability 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 No therapy upon discharge from [facility]. Also has daughter who is currently not working. Occupational therapy includes sexuality, sexual activity, and relationship roles into activities ofdaily living. The following questions were included in the prior level of function section of the Occupational therapy evaluation to address intimacy and relationship roles: Is it important is it for you to participate in intimacy? Yes Are you distressed or concerned about your future intimacy/ relationship roles with your partner? Yes Are you comfortable discussing your intimacy concerns with your partner? Yes Would you like to address intimacy and relationship roles in your plan of care? No Objective Vision Vision: Impaired Vision Exceptions: Wears glasses at all times Hearing Hearing: Within functional limits Sensation Overall Sensation Status: Impaired (Neuropathy in B hands/feet) Observation/Palpation Observation: Generalized intention tremor noted of bilateral UE and LE extermities Edema: BLE edema noted Cognition Overall Orientation Status: Within Normal Limits Orientation Level: Oriented X4 Cognition Overall Cognitive Status: Exceptions Arousal/Alertness: Delayed responses to stimuli Following Commands: Follows multistep commands with repitition, Follows multistep commands with increased time Attention Span: Attends with cues to redirect, Difficulty attending to directions Memory: Appears intact Safety Judgement: Decreased awareness of need for safety Problem Solving: Decreased awareness of errors Insights: Decreased awareness of deficits Initiation: Requires cues for some Sequencing: Requires cues for some Cognition Comment: delayed responses at time Patient affect:: Flat Activities of Daily Living Feeding: Setup Grooming: Stand by assistance Grooming Skilled Clinical Factors: Pt combed his hair, brushed his teeth, and shaved seated in w/c at sink. Pt initially stood at sink to brush his teeth, CGA for standing balance, however requested to sit back down due to fatigue UE Bathing: Stand by assistance UE Bathing Skilled Clinical Factors: Seated in w/c at sinkside. CHG solution used for trunk and RUE. Assist with washing/drying backside LE Bathing: Contact guard assistance LE Bathing Skilled Clinical Factors: Pt stood to wash/dry periarea and buttocks, CGA for standing balance for safety. Pt used figure four method to wash/dry B feet and lower extremities UE Dressing: Minimal assistance UE Dressing Skilled Clinical Factors: Pt able to doff shirt seated in w/c, able to thread UEs into shirt and overhead. Assist with pulling down on backside LE Dressing: Minimal assistance LE Dressing Skilled Clinical Factors: Pt doffed underwear/pants off hips standing at sink, threadedoff B feet seated in w/c. Assist doffing B socks. Pt donned L sock using modified figure four technique. Assist with donning HEATHER hose and R sock. Toileting: Contact guard assistance Toileting Skilled Clinical Factors: Per STATISTICIAN THEORETICAL report- pt able to manage clothing, CGA for standing Additional Comments: OT facilitated pt's engagement in self care tasks. Pt politely declined showering but agreeable to bathing at sinkside. Pt is limited due to fine motor deficits, weakness, and low endurance/activity tolerance, inhibiting performance of self care tasks OT scores Eating Assistance Needed: Setup or clean-up assistance CARE Score: 5 Discharge Goal: Independent Oral Hygiene Assistance Needed: Supervision or touching assistance CARE Score: 4 Discharge Goal: Independent Toileting Hygiene Assistance needed: Supervision or touching assistance Comment: Per STATISTICIAN THEORETICAL report CARE Score: 4 Discharge Goal: Independent Shower/Bathe Self Assistance Needed: Supervision or touching assistance CARE Score: 4 Discharge Goal: Independent Upper Body Dressing Assistance Needed: Partial/moderate assistance CARE Score: 3 Discharge Goal: Set-up or clean-up assistance Lower Body Dressing Assistance Needed: Supervision or touching assistance CARE Score: 4 Discharge Goal: Independent Putting On/Taking Off Footwear Assistance Needed: Partial/moderate assistance CARE Score: 3 Discharge Goal: Independent Toilet Transfer Assistance needed: Supervision or touching assistance Comment: Per STATISTICIAN THEORETICAL report CARE Score: 4 Discharge Goal: Independent UE Function LUE AROM (degrees) LUE AROM : WFL Tone RUE RUE Tone: Normotonic LUE Strength L Hand General: 4-/5 LUE Strength Comment: Overall 4-/5 Left Hand Strength - Hose Seamer (lbs) Handle Setting 3: 47# (50, 49, 42) (Impaired, Norm: 65-103#) RUE AROM (degrees) RUE AROM : WFL Right Hand AROM (degrees) Right Hand AROM: WFL Tone LUE LUE Tone: Normotonic RUE Strength R Hand General: 4-/5 RUE Strength Comment: Overall 4-/5 Right Hand Strength - Hose Seamer (lbs) Handle Setting 3: 44.33# (39, 45, 49) (Impaired, Norm: 65-103#) Fine Motor Skills/Coordination Hand Dominance Hand Dominance: Right Coordination Movements Are Fluid And Coordinated: No Coordination and Movement Description: Intention tremors, Fine motor impairments, Decreased accuracy, Right UE, Left UE Fine Motor Skills Left 9-Hole Peg Test: Impaired (Norm: 21-29 secs) Left 9 Hole Peg Test Time (secs): 43.96 Right 9-Hole Peg Test: Impaired (Norm: 21-29 secs) Right 9 Hole Peg Test Time (secs): 42.57 Mobility Bed mobility Supine to Sit: Stand by assistance Sit to Supine: Stand by assistance Scooting: Stand by assistance Bed Mobility Comments: HOB flat, use of hand rail from supine->sit. Denied feeling lightheaded upon sitting EOB. Pt requested to lay down at end of session. Time: <60 seconds x2, 1-2 minutes x2, 2 minutes x1 Balance Balance Sitting Balance: Supervision Standing Balance: Contact guard assistance Standing Balance Time: <60 seconds x2, 1-2 minutes x2, 2 minutes x1 Activity: functional transfers, functional mobility, self care tasks Comment: UE support throughout Transfers Transfers Stand Pivot Transfers: Contact guard assistance Sit to stand: Contact guard assistance Stand to sit: Contact guard assistance Transfer Comments: Minimal cues for hand placement for safety Toilet Transfers Toilet - Technique: Ambulating Equipment Used: Grab bars Toilet Transfer: Contact guard assistance Toilet Transfers Comments: Per STATISTICIAN THEORETICAL report Functional mobility Functional Mobility Functional - Mobility Device: Rolling Walker Activity: To/from bathroom Assist Level: Contact guard assistance Assessment Activity Tolerance Activity Tolerance: Patient Tolerated treatment well, Patient limited by fatigue Assessment Performance deficits / Impairments: Decreased functional mobility , Decreased ADL status, Decreasedstrength, Decreased cognition, Decreased endurance, Decreased balance, Decreased fine motor control, Decreased coordination, Decreased high-level IADLs Treatment Diagnosis: Impaired self-care status Prognosis: Good Decision Making: Medium Complexity Discharge Recommendations: Continue to assess pending progress Patient Education Education Education Given To: Patient Education Provided: Role of Therapy, Plan of Care, Safety, Transfer Training Education Method: Verbal Barriers to Learning: None Education Outcome: Verbalized understanding, Demonstrated understanding, Continued education needed OT Equipment Recommendations Other: TBD Safety Devices Type of Devices: Nurse notified, Call light within reach, Patient at risk for falls, All fall risk precautions in place, Gait belt, Left in chair (nurse Lebron) Restraints Restraints Initially in Place: No Goals Patient Goals Patient goals : To work on my stability and endurance. That's the worst part for me Pt stated in regards to his goal for occupational therapy. Short Term Goals Time Frame for Short Term Goals: By 4-5 days Short Term Goal 1: Pt will perform upper body dressing and bathing with supervision and Good safety Short Term Goal 2: Pt will perform lower body dressing/bathing with SBA, using appropriate adaptivetechniques/equipment as needed Short Term Goal 3: Pt will perform functional transfers/mobility with SBA, using least restrictive device, and Good safety Short Term Goal 4: Pt will tolerate standing for 5+ minutes, participating in dynamic standing and reaching as tolerated, during self care/functional activity of choice Short Term Goal 5: Pt will actively partcipate in therapeutic social participation activity to facilitate peer discussion regarding coping strategies and/or feelings of loss/grief related to current medical status, to promote engagement in self care and functional activities Short Term Goal 6: Pt will actively participate in 30+ minutes of therapeutic exercise/functional activity to promote safety and independence with self care and mobility Water And Gas Helper Goals Time Frame for Halfway Goals : By discharge Halfway Goal 1: Pt will perform BADLs mod I, using appropriate adaptive techniques/equipment, andGood safety Water And Gas Helper Goal 2: Pt will perform functional transfers/mobility, using least restrictive device, mod I and Good safety Water And Gas Helper Goal 3: Pt will tolerate standing for 10+ minutes, participating in dynamic standing and reaching as tolerated, during self care/functional activity of choice Halfway Goal 4: Pt will V/D use of energy conservation/work simplification techniques to increaseIND during daily routine Water And Gas Helper Goal 5: Pt will V/D at least three fall prevention/home safety modifications that are applicable to his daily routine and home environment Water And Gas Helper Goal 6: Pt will improve opening small containers during self-care tasks as evidenced by 5seconds improvement on 9 hole peg test and 5# improvement of uniform designer strength Water And Gas Helper Goal 7: Pt will perform light housekeeping/simple meal preparation with supervision, using adaptive techniques as needed, and Good safety Plan Occupational Therapy Plan Times Per Week: 900 minutes between OT/PT/SOCIAL SERVICE ASSISTANT Current Treatment Recommendations: Strengthening, Balance training, ROM, Functional mobility training, Endurance training, Safety education & training, Equipment evaluation, education, & procurement, Patient/Caregiver education & training, Self-Care / ADL, Positioning, Home management training, Coordination training 07/01/22 0810 07/01/22 1306 OT Individual Minutes Time In 0810 1306 Time Out 0932 1320 Minutes 82 14 Time Code Minutes Timed Code Treatment Minutes 60 Minutes 14 Minutes * Kassie Gonzalez LPN - 07/01/2022 3:43 AM EDT Pt. Got up at 0200, had to urinate, asst. Pt. To bathroom, was able to void. Did a bladder scan postvoid =196ml will continue to monitor and educate pt. * Sahra Cruz II, LPN - 06/30/2022 3:35 PM EDT Images from the original note were not included. ACUTE INPATIENT REHABILITATION ADMISSION [facility] Patient Name: Steven Walden Date of Admit: 06/30/2022 Time of Arrival: 3:30pm Patient admitted to the Acute Inpatient Rehabilitation Unit via Wheelchair Patient oriented to room, unit and fall prevention safety measures. Education provided on the rehabilitation routine and therapy schedules. Drug / Medication Regimen Review Admitting medication orders compared with acute stay medications; home medication list reviewed with patient/family. Medication Issues Identified ? No If Yes, Check All That Apply [] Allergy to medication [] Drug interactions (drug/drug, drug/food, drug/disease interactions) [] Duplicate drug [] Omission (drug missing from prescribed regimen) [] Non adherence [] Adverse reaction [] Wrong patient, drug, dose, route, time error [] Ineffective drug therapy High-Risk Drug Classes: Use and Indication Check if the patient is taking any medications by pharmacological classification If yes, check if there is an indication noted for all meds in the drug class Antipsychotic No If yes: indication noted? [] If no indication noted, follow up with provider for order clarification Anticoagulant Yes If yes: indication noted? [] Antibiotic Yes If yes: indication noted? [] Opioid No If yes: indication noted? [] Antiplatelet No If yes: indication noted? [] Hypoglycemic (Including Insulin) Yes If yes: indication noted? [] Attending Physical Medicine & Rehabilitation (PM&R) Admitting Order Review Admission orders reviewed with Acute Inpatient Rehabilitation Attending PM&R Physician: Sachin Mckeon MD Skin Assessment Skin assessment performed by two nurses: all active alterations in skin integrity, wounds, lines, drains and airways assessed, measured, recorded and reconciled. Refer to LDA avatar and LDA flowsheetfor additional information. Nurse 1 Completing Skin Assessment sonia Bocanegra Nurse 2 Completing Skin Assessment Isha AIRZA Active pressure injuries or complex wounds identified? No If yes: contact provider for wound care consult order [] Admission Weight Patient's Weight Upon Admission 329.5lb Bowel and Bladder Functional Assessment Prior history of bladder problems: Kidney stone removed and bladder infection Number of pads used per day: 0 Frequency of night time voiding: twice Fluid intake volume and pattern: Last Bowel Movement 06/29/22 Prior history of bowel problems: No If Yes, Check All That Apply []Incontinence []Frequent Diarrhea []Constipation []Hemorrhoids []Diverticulitis []Bowel Surgery Pain Assessment Over the past 5 days, how much of the time has pain made it hard for you to sleep at night? Rarely or not at all Over the past 5 days, how often have you limited your participation in rehabilitation therapy sessions due to pain? Does not apply - I have not received rehabilitation therapy in the past 5 days Over the past 5 days, how often have you limited your day-to-day activities (excluding rehabilitation therapy session)? Rarely or not at all Special Treatments, Procedures, and Programs Check all of the following treatments, procedures, and programs that apply on admission. Cancer Treatments Chemotherapy No If Yes, Check All That Apply []IV Chemotherapy []Oral Chemotherapy []Chemotherapy Radiation No Respiratory Therapies Oxygen Therapy No If Yes, Check All That Apply []Continuous []Intermittent []High-Concentration Suctioning No If Yes, Check All That Apply []Scheduled []As Needed Tracheostomy Care No Invasive Mechanical Ventilator (Ventilator or Respirator) No If Yes, Check All That Apply []Non-invasive Mechanical Ventilator []BiPap []CPAP Other IV Medications Yes If Yes, Check All That Apply []IV Vasoactive Medications [x]IV Antibiotics []IV Anticoagulation []Other IV Medications Transfusions No Dialysis Yes If Yes, Check All That Apply [x]Hemodialysis []Peritoneal Dialysis IV Access Yes If Yes, Check All That Apply []Peripheral []Midline [x](PICC, tunneled, port) Admission folder with the following documents provided to patient/responsible republican: 1. [facility] Acute Rehabilitation [facility] Individualized Disclosure Statement 2. Data Collection Information Summary for Patients in Inpatient Rehabilitation Facilities 3. Privacy Act Statement - Health Care Records Care plan was created with patient/responsible republican input and goals were agreed upon. Please refer to the admission navigator for further information. [facility] [employer] [facility] Work Phone: [phone] 750-878203-22-2023 Hospital Discharge instructions* Discharge Instructions* Sara Delgadillo RN - 06/30/2022 3:56 PM EDT Kevin Myles MD [address] [facility] [id number] Follow up in 6 week(s) for stone fu Darion Randle MD [address] [facility] [address] [facility] [place] [address] Follow up Yo Batista MD [address] [facility] [id number] Follow up * Discharge Instr - SHAYNE* Sara Delgadillo RN - 07/07/2022 11:36 AM EDT Continuity of Care Form Patient Name: Steven Walden : 1960 Admit date: 06/30/2022 Discharge date: Code Status Order: Full Code Advance Directives: Admitting Physician: Sachin Mckeon MD PCP: Darion Randle MD Discharging Nurse: Discharging Hospital Unit/Room#: 2632/2632-01 Discharging Unit Phone Number: Emergency Contact: Extended Emergency Contact Information Primary Emergency Contact: Umm Walden Mobile Relation: Spouse Preferred language: Citizen Of [place] Operator needed? No Secondary Emergency Contact: Racheal Walden Mobile Relation: Child Preferred language: Citizen Of [place] Operator needed? No Past Surgical History: Past Surgical History: Procedure Laterality Date CHOLECYSTECTOMY 2010 CYSTOSCOPY Left 05/28/2022 CYSTOSCOPY, URETERAL STENT INSERTION, URETHRAL DILATION performed by Kevin Myles MD at [facility] OR CYSTOSCOPY Left 06/29/2022 CYSTOSCOPY, URETEROSCOPY, LEFT STENT REMOVAL, STONE BASKETING (Left) CYSTOSTOMY W/ STENT INSERTION Left 06/29/2022 Stent exchange HAND SURGERY Right 12/2021 IR TUNNELED CATHETER PLACEMENT GREATER THAN 5 YEARS 06/28/2022 IR TUNNELED CATHETER PLACEMENT GREATER THAN 5 YEARS 06/28/2022 Gillian Batista MD [facility] SPECIAL PROCEDURES URETER SURGERY Left 06/29/2022 CYSTOSCOPY, URETEROSCOPY, LEFT STENT REMOVAL, STONE BASKETING performed by Kevin Myles MD at [facility] OR Immunization History: Immunization History Administered Date(s) Administered COVID-19, J&J, (age 18y+), IM, 0.5 mL 09/04/2020 Active Problems: Patient Active Problem List Diagnosis Code DAISY (acute kidney injury) ([facility]) N17.9 Acute kidney injury superimposed on CKD ([facility]) N17.9, N18.9 Chronic kidney disease N18.9 Type 2 diabetes mellitus with stage 3a chronic kidney disease ([facility]) E11.22, N18.31 Hyperlipidemia E78.5 Primary hypertension I10 Urinary tract obstruction by kidney stone N20.0, N13.8 Hydronephrosis of left kidney N13.30 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 Left ureteral stone N20.1 Debility R53.81 BRITTANY (generalized anxiety disorder) F41.1 Major depressive disorder, recurrent, moderate ([facility]) F33.1 Tremor R25.1 Bandemia D72.825 Pyelonephritis of left kidney N12 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 Hyponatremia E87.1 Dependence on renal dialysis (HCC) Z99.2 Metabolic acidosis E87.20 Isolation/Infection: Isolation No Isolation Patient Infection Status Infection Onset Added Last Indicated Last Indicated By Review Planned Expiration Resolved Resolved By None active Resolved COVID-19 (Rule Out) 06/20/22 06/20/22 06/20/22 COVID-19, Rapid (Ordered) 06/20/22 Rule-Out Test Resulted C-diff Rule Out 05/28/22 05/28/22 05/28/22 C DIFF TOXIN/ANTIGEN (Ordered) 05/29/22 Rule-Out Test Canceled Nurse Assessment: Last Vital Signs: BP 122/76 Pulse 70 Temp 97.3 F (36.3 C) Resp 16 Ht 6' 5 (1.956 m) Wt (!) 325 lb 9.9 oz (147.7 kg) SpO2 96% BMI 38.61 kg/m Last documented pain score (0-10 scale): Pain Level: 0 Last Weight: Wt Readings from Last 1 Encounters: 07/06/22 (!) 325 lb 9.9 oz (147.7 kg) Mental Status: {IP PT MENTAL STATUS:} IV Access: { SHAYNE IV ACCESS:176289958} Nursing Mobility/ADLs: Walking {CHP DME ADLs:752137182} Transfer {CHP DME ADLs:480953324} Bathing {CHP DME ADLs:359312364} Dressing {CHP DME ADLs:177928477} Toileting {CHP DME ADLs:445967264} Feeding {CHP DME ADLs:710374097} Autism Teacher {CHP DME ADLs:252209497} Med Delivery { SHAYNE MED Delivery:268872994} Wound Care Documentation and Therapy: Elimination: Continence: Bowel: {YES / NO:} Bladder: {YES / NO:} Urinary Catheter: {Urinary Catheter:405444703} Colostomy/Ileostomy/Ileal Conduit: {YES / NO:} Date of Last BM: Intake/Output Summary (Last 24 hours) at 07/07/2022 1133 Last data filed at 07/06/2022 1800 Gross per 24 hour Intake 5860 ml Output 2500 ml Net 3360 ml I/O last 3 completed shifts: In: 6580 [P.O.:1080; I.V.:5000] Out: 2500 Safety Concerns: { SHAYNE Safety Concerns:290822456} Impairments/Disabilities: { SHAYNE Impairments/Disabilities:190125400} Nutrition Therapy: Current Nutrition Therapy: { SHAYNE Diet List:684159590} Routes of Feeding: {[facility] DME Other Feedings:177472973} Liquids: {[facility] liquid thickness:05763} Daily Fluid Restriction: {[facility] DME Yes amt example:226570727} Last Modified Barium Swallow with Video (Video Swallowing Test): {Done Not Done Date:} Treatments at the Time of Hospital Discharge: Respiratory Treatments: Oxygen Therapy: {Therapy; copd oxygen:84976} Ventilator: { CC Vent List:082267822} Rehab Therapies: {THERAPEUTIC INTERVENTION:4017196238} Weight Bearing Status/Restrictions: {[facility] Weight Bearin} Other Medical Equipment (for information only, NOT a DME order): {EQUIPMENT:391173841} Other Treatments: Patient's personal belongings (please select all that are sent with patient): {[facility] DME Belongings:431824217} RN SIGNATURE: {Esignature:046100019} CASE MANAGEMENT/SOCIAL WORK SECTION Inpatient Status Date: 06/30/2022 Readmission Risk Assessment Score: Readmission Risk Risk of Unplanned Readmission: 31 Discharging to Facility/ Agency Declined Home Health Care/ Will attend OP Therapy~ per patient Dialysis Facility (if applicable) [facility] [address] [place] [address] M W F treatment days. 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 Update Admission H&P: {CHP DME Changes in HandP:633653102} PHYSICIAN SIGNATURE: {Esignature:386507389} documented in this encounterBON [employer] Phone: 1(101) 179-247603-22-2023 History of Present illness Narrative* Love Hess MD - 06/30/2022 1:24 PM EDT Physician Progress Note PATIENT: STEVEN WALDEN CSN #: [id number] : 1960 ADMIT DATE: 06/20/2022 1:58 AM DISCH DATE: RESPONDING PROVIDER #: Love Hess MD QUERY TEXT: Patient admitted with sepsis due to pyeonephritis as noted in PN of 06/21. If possible, please document in the progress notes and discharge summary if sepsis due to pyeonephritis was: The medical record reflects the following: Risk Factors: Daisy wiht ATN, pyenp[hritis, left kidney calculus, hyponetremia, Clinical Indicators: --wbc- 12.7, 8.0, temp- 100., 98.5, 100.9, HR- 93-88-103, RR- 16-30-20'S NA- 128-127- , LAC ACID - 2.1, 1.1, creatinine- 3.55-4.50 Treatment: IV- Vancomycin, Zyvox, LR- 1 L bolus, 1.3 bolus. sodium bi -carb gtt. Thank you, please contact me for any questions. Jessica Alvarez RN, CDS cell- [phone] office hours - [phone] Options provided: -- sepsis due to pyeonephritis confirmed after study -- sepsis due to pyeonephritis treated and resolved was POA -- sepsis ruled out after study -- Other - I will add my own diagnosis -- Disagree - Not applicable / Not valid -- Disagree - Clinically unable to determine / Unknown -- Refer to Clinical Documentation Reviewer PROVIDER RESPONSE TEXT: sepsis due to pyeonephritis treated and resolved was POA. Query created by: Jessica Alvarez on 06/30/2022 12:43 PM Electronically signed by: Love Hess MD 06/30/2022 1:23 PM * oY Batista MD - 06/30/2022 11:30 AM EDT Nephrology Progress Note SUBJECTIVE Patient was seen and examined. No new issues reported overnight. Patient was initiated on dialysis on 06/24/2022. Tunneled catheter was placed by IR 06/28/2022 and now working well. Patient underwent cystoscopy, ureteroscopy and stent removal and stone basketing 06/29/2022 by urology. BMP results from today reviewed electrolytes stable with sodium 137, potassium 3.7, chloride 98, bicarb 26, calcium 9.1, BUN 32, creatinine 3.70 mg/dl. Hemoglobin 9.6. Urine output documented as about 500 cc in the last 24 hours. Patient is to get discharged today and will be getting his outpatient dialysis at [facility]. HPI: 62-year-old male with a PMH significant of type II DM, diagnosed 15 years ago with vision compromise (no diagnosis of retinopathy), A1c has been fluctuating between 7 and 11 according to his family, CKD stage III, used to follow up at [facility] nephrology, has not seen retort loader in the last 6 years, with unknown baseline creatinine, chronic lower extremity edema, morbid obesity (BMI 41.5),essential hypertension, remote history of nephrolithiasis. He presented with fever, chills and left-sided flank pain days prior to presentation on 06/20/2022. Patient also had apparently a fall at home. Patient was recently admitted in May for an obstructing stone and solitary working kidney, urology had placed stent and Carballo was placed with intraoperative dilation. Patient now has gross hematuria. Patient was supposed to follow-up in 2 weeks with urology for definitive stone treatment however patient did not follow-up. Patient was found to have emphysematous cystitis. Patient was taking Farxiga on discharge. OBJECTIVE CURRENT TEMPERATURE: Temp: 97.5 F (36.4 C) MAXIMUM TEMPERATURE OVER 24HRS: Temp (24hrs), Av.9 F (36.6 C), Min:97.5 F (36.4 C), Max:98 F (36.7 C) CURRENT RESPIRATORY RATE: Resp: 19 CURRENT PULSE: Heart Rate: 84 CURRENT BLOOD PRESSURE: BP: 126/84 24HR BLOOD PRESSURE RANGE: Systolic (24hrs), Av , Min:116 , Max:174 ; Diastolic (24hrs), Av, Min:78, Max:92 24HR INTAKE/OUTPUT: Intake/Output Summary (Last 24 hours) at 06/30/2022 1348 Last data filed at 06/30/2022 1223 Gross per 24 hour Intake 400 ml Output 2646 ml Net -2246 ml PHYSICAL EXAM General: AAO x 3, NAD. HEENT: Atraumatic, normocephalic. Eyes: Normal conjunctiva, no icterus Neck: No JVD, no accessory muscle use, midline trachea Chest: Good bilateral air entry and clear to auscultation bilaterally and symmetrically with no wheezes or rales or rhonchi Cardiac: S1 S2 audible. No S3. Abdomen: Obese and soft and not tender not distended with active bowel sounds : No suprapubic or flank tenderness. Neuro: AAO x 3, No FND. No asterixis or clonus SKIN: No rashes, good skin turgor. Extremities: Trace edema. CURRENT MEDICATIONS heparin (porcine) injection 1,700 Units, PRN heparin (porcine) injection 1,800 Units, PRN cefepime (MAXIPIME) 2,000 mg in sterile water 20 mL IV syringe, Once per day on Tue gabapentin (NEURONTIN) capsule 300 mg, Daily insulin glargine (LANTUS) injection vial 25 Units, Nightly ALPRAZolam (XANAX) tablet 0.5 mg, BID PRN brexpiprazole (REXULTI) tablet 2 mg, Daily senna (SENOKOT) tablet 8.6 mg, Nightly polyethylene glycol (GLYCOLAX) packet 17 g, Daily bisacodyl (DULCOLAX) suppository 10 mg, Daily heparin (porcine) injection 5,000 Units, 3 times per day albuterol sulfate HFA (PROVENTIL;VENTOLIN;PROAIR) 108 (90 Base) MCG/ACT inhaler 2 puff, Q6H PRN allopurinol (ZYLOPRIM) tablet 100 mg, Daily atorvastatin (LIPITOR) tablet 20 mg, Nightly budesonide-formoterol (SYMBICORT) 80-4.5 MCG/ACT inhaler 2 puff, BID lamoTRIgine (LAMICTAL) tablet 200 mg, Daily mirtazapine (REMERON) tablet 30 mg, Nightly pantoprazole (PROTONIX) tablet 40 mg, QAM AC propranolol (INDERAL) tablet 20 mg, TID tamsulosin (FLOMAX) capsule 0.4 mg, Daily venlafaxine (EFFEXOR XR) extended release capsule 150 mg, Daily sodium chloride flush 0.9 % injection 5-40 mL, 2 times per day sodium chloride flush 0.9 % injection 5-40 mL, PRN 0.9 % sodium chloride infusion, PRN ondansetron (ZOFRAN-ODT) disintegrating tablet 4 mg, Q8H PRN Or ondansetron (ZOFRAN) injection 4 mg, Q6H PRN acetaminophen (TYLENOL) tablet 650 mg, Q6H PRN Or acetaminophen (TYLENOL) suppository 650 mg, Q6H PRN insulin lispro (HUMALOG) injection vial 0-8 Units, TID WC insulin lispro (HUMALOG) injection vial 0-4 Units, Nightly glucose chewable tablet 16 g, PRN dextrose bolus 10% 125 mL, PRN Or dextrose bolus 10% 250 mL, PRN glucagon (rDNA) injection 1 mg, PRN dextrose 10 % infusion, Continuous PRN lidocaine (XYLOCAINE) 2 % uro-jet, PRN oxyCODONE (ROXICODONE) immediate release tablet 5 mg, Q4H PRN LABS CBC: Recent Labs 06/28/22 1017 06/29/22 1135 06/30/22 0958 WBC 13.4* 12.9* 13.6* RBC 3.76* 3.74* 3.76* HGB 11.4* 11.4* 11.6* HCT 35.4* 35.7* 36.0* MCV 94.1 95.5 95.7 MCH 30.3 30.5 30.9 MCHC 32.2 31.9 32.2 RDW 13.4 13.5 13.7 PLT 357 301 276 MPV 10.4 9.7 9.7 BMP: Recent Labs 06/28/22 1017 06/29/22 0747 06/29/22 1135 06/30/22 0958 NA 136 -- 138 137 K 3.7 -- 4.0 3.7 CL 97* -- 103 98 CO2 24 -- 24 26 BUN 42* -- 43* 32* CREATININE 4.44* 4.68* 4.38* 3.70* GLUCOSE 184* -- 161* 209* CALCIUM 9.1 -- 9.1 9.1 SPEP: Lab Results Component Value Date/Time PROT 7.8 06/20/2022 03:31 AM ALBCAL 3.4 05/28/2022 08:45 PM ALBPCT 51 05/28/2022 08:45 PM LABALPH 0.3 05/28/2022 08:45 PM LABALPH 1.1 05/28/2022 08:45 PM A1PCT 4 05/28/2022 08:45 PM A2PCT 16 05/28/2022 08:45 PM LABBETA 0.9 05/28/2022 08:45 PM BETAPCT 14 05/28/2022 08:45 PM GAMGLOB 1.0 05/28/2022 08:45 PM GGPCT 15 05/28/2022 08:45 PM PATH ELECTRONICALLY SIGNED. KUSUM VILLAFANA M.D. 06/21/2022 09:35 PM UPEP: Lab Results Component Value Date/Time TPU 187 06/21/2022 09:35 PM TPU 187 06/21/2022 09:35 PM HEPBSAG: Lab Results Component Value Date/Time HEPBSAG NONREACTIVE 06/21/2022 02:32 PM HEPCAB: Lab Results Component Value Date/Time HEPCAB NONREACTIVE 06/21/2022 02:32 PM C3: Lab Results Component Value Date C3 167 06/21/2022 C4: Lab Results Component Value Date C4 58 (H) 06/21/2022 URINE SODIUM: Lab Results Component Value Date/Time KYLAH 41 06/21/2022 09:35 PM URINE POTASSIUM: Lab Results Component Value Date/Time KUR 19.1 06/21/2022 09:35 PM URINE OSMOLARITY: Lab Results Component Value Date/Time OSMOU 361 06/21/2022 09:35 PM URINE CREATININE: Lab Results Component Value Date/Time LABCREA 99.0 06/21/2022 09:35 PM URINE PROTEIN: Lab Results Component Value Date/Time TPU 187 06/21/2022 09:35 PM TPU 187 06/21/2022 09:35 PM URINALYSIS: U/A: Lab Results Component Value Date/Time NITRU NEGATIVE 06/20/2022 08:30 AM COLORU [place] 06/20/2022 08:30 AM PHUR 5.5 06/20/2022 08:30 AM WBCUA 5 TO 10 06/20/2022 08:30 AM RBCUA TOO NUMEROUS TO COUNT 06/20/2022 08:30 AM BACTERIA FEW 06/20/2022 08:30 AM SPECGRAV 1.010 06/20/2022 08:30 AM LEUKOCYTESUR SMALL 06/20/2022 08:30 AM UROBILINOGEN Normal 06/20/2022 08:30 AM BILIRUBINUR NEGATIVE 06/20/2022 08:30 AM GLUCOSEU NEGATIVE 06/20/2022 08:30 AM KETUA NEGATIVE 06/20/2022 08:30 AM RADIOLOGY Reviewed as available. ASSESSMENT 1. Acute Kidney Injury: Nonoliguric secondary to ATN (complicated UTI) -dialysis dependent since 06/24/2022. Nonoliguric urine output with blood-tinged urine (hematuria improved) and Carballo was placed but seems to have poor clearances. Has tunneled catheter which was replaced by IR on 06/28/2022. 2. High anion gap metabolic acidosis secondary to acute kidney injury-resolved 3. Hyponatremia -combination of appropriate (volume depletion) and inappropriate (infection) ADH excess- resolved. 4. Chronic kidney disease stage IIIb secondary to diabetic nephrosclerosis with baseline creatininelikely 2.1-2.3 mg/dl. 5. 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 History of left hydronephrosis recently with urological surgical intervention and stent placement last month 7. Type II DM has been on Farxiga at home 8. Complicated UTI/pyelonephritis post stent placement 9. Left-sided nephrolithiasis cystoscopy, ureteroscopy and stent removal and stone basketing 06/29/2022 by urology. PLAN No acute need for dialysis today. To get regular dialysis in a.m., will be getting his outpatient dialysis at [facility] upon discharge. Postop management per urology. Continue antibiotics as per GFR<15. Avoid nephrotoxin. Continue on renal diet. Okay to discharge from nephrology standpoint.. Please do not hesitate to call with questions. Yo Batista MD [facility] This note is created with the assistance of a speech-recognition program. While intending to generate a document that actually reflects the content of the visit, no guarantees can be provided that every mistake has been identified and corrected by editing. * Love Hess MD - 06/30/2022 11:03 AM EDT Images from the original note were not included. [facility] Office: [phone] Chris Osman DO, Terrence Johns DO, Stefani Augustin DO, Jaspreet Mosley DO, Surekha Batista MD, Adrienne Means MD, Rosales Singh MD, Caitlyn Benz MD, Abdoul Camargo MD, Cathy Farooq MD, Chepe Cordova DO, Love Hess MD, Deja Guevara DO, April Girard MD, Arvin Maya MD, Jessica Osman DO, Shima Watson MD, Raphael Connor MD, Jerome Simon DO, Yoselyn Thakkar MD, Codi Self MD, Gilda Sousa MD, Sheyla Viveros MD, Vikki Adorno MD, Jarocho Real DO, Krishan Vogt MD, Radha William MD, Shaunna Freitas CNP, Prabha Hauser CNP, Shirlene Dacosta CNP, Favian Ji CNP, Yesenia Espino DNP, Ema Mason, KARINA, Calista Mendez, HOUSE MOVING SUPERVISOR, Gunjan Ruiz CNP, Sharon Barry CNP, Sri Weiner CNP, Gillian Valles PA-C, Carleen Paiz, SARA, Catie Cheema, HOUSE MOVING SUPERVISOR, Chelsea Kulkarni, KARINA [facility] IN-PATIENT SERVICE [facility] Progress Note 06/30/2022 11:03 AM Name: Steven Walden Acct: [id number] Room: [address] [place] [address] Day: 10 Admit Date: 06/20/2022 1:58 AM PCP: Darion Randle MD Code Status: Full Code Subjective: C/C: Chief Complaint Patient presents with Fall Fever Flank Pain Interval History Status: improved. Patient seen and examined.feeling well. Carballo is out. No other issues, asked about dialysis, assured him that his acute rehab should be able to accommodate him. Brief History: 62-year-old male past medical history of CKD stage III, diabetes, hypertension, hyperlipidemia, obesity, obesity hypoventilation syndrome presents with fevers chills left-sided flank pain for the past 3 days found to have emphysematous cystitis and being followed by urology and infectious disease. Kidney function unfortunately worsened and was started on dialysis. Plan for tunnel catheter placement on 06/30/2022. Patient underwent cystoscopy, left stent removal, stone basketing with urology on 06/29/2022. Patient to continue with cefepime for antibiotics till 07/02/2022. Discharge planning to acute rehab. Patient has been followed by urology, nephrology, physiatry. Date of Procedure: 06/29/2022 Pre-Op Diagnosis: LEFT URETERAL STONE Post-Op Diagnosis: Same Procedure(s): CYSTOSCOPY, URETEROSCOPY, LEFT STENT REMOVAL, STONE BASKETING Surgeon(s): Kevin Myles MD Lead Injection Mold Technician: * No surgical staff found * Anesthesia: Monitor Anesthesia Care Estimated Blood Loss (mL): Minimal Complications: None Review of Systems: Review of Systems Constitutional: Negative for activity change and fatigue. HENT: Negative for congestion and nosebleeds. Eyes: Negative for pain and redness. Respiratory: Negative for choking and shortness of breath. Cardiovascular: Negative for chest pain and palpitations. Gastrointestinal: Negative for abdominal distention and diarrhea. Genitourinary: Negative for difficulty urinating and hematuria. Psychiatric/Behavioral: Negative for agitation and behavioral problems. Medications: Allergies: No Known Allergies Current Meds: Scheduled Meds: cefepime 2,000 mg IntraVENous Once per day on Tue Sat gabapentin 300 mg Oral Daily insulin glargine 25 Units SubCUTAneous Nightly brexpiprazole 2 mg Oral Daily senna 1 tablet Oral Nightly polyethylene glycol 17 g Oral Daily bisacodyl 10 mg Rectal Daily heparin (porcine) 5,000 Units SubCUTAneous 3 times per day allopurinol 100 mg Oral Daily atorvastatin 20 mg Oral Nightly budesonide-formoterol 2 puff Inhalation BID lamoTRIgine 200 mg Oral Daily mirtazapine 30 mg Oral Nightly pantoprazole 40 mg Oral QAM AC propranolol 20 mg Oral TID tamsulosin 0.4 mg Oral Daily venlafaxine 150 mg Oral Daily sodium chloride flush 5-40 mL IntraVENous 2 times per day insulin lispro 0-8 Units SubCUTAneous TID WC insulin lispro 0-4 Units SubCUTAneous Nightly Continuous Infusions: sodium chloride dextrose PRN Meds: heparin (porcine), heparin (porcine), ALPRAZolam, albuterol sulfate HFA, sodium chloride flush, sodium chloride, ondansetron OR ondansetron, acetaminophen OR acetaminophen, glucose,dextrose bolus OR dextrose bolus, glucagon (rDNA), dextrose, lidocaine, oxyCODONE Data: Past Medical History: has a past medical history of Anxiety, Chronic kidney disease, Congenital heart defect, Diabetes mellitus (HCC), Gout, Hyperlipidemia, Hypertension, Major depressive disorder, Morbid obesity (HCC), Neuropathy, SHADE (obstructive sleep apnea), and Peptic ulcer disease. Social History: reports that he has never smoked. He has never used smokeless tobacco. He reports current alcohol use. Family History: Family History Problem Relation Age of Onset Heart Disease Mother pacer Cancer Sister 58 Kidney Vitals: BP 126/84 Pulse 84 Temp 97.5 F (36.4 C) (Oral) Resp 19 Ht 6' 5 (1.956 m) Wt (!) 337 lb 15.4 oz (153.3 kg) SpO2 91% BMI 40.08 kg/m Temp (24hrs), Av.8 F (36.6 C), Min:97.1 F (36.2 C), Max:98.4 F (36.9 C) Recent Labs 06/29/22 1157 06/29/22 1746 06/29/22200106/30/22 0548 POCGLU 179* 142* 208* 174* I/O (24Hr): Intake/Output Summary (Last 24 hours) at 06/30/2022 1103 Last data filed at 06/30/2022 0627 Gross per 24 hour Intake 400 ml Output 2300 ml Net -1900 ml Labs: Hematology: Recent Labs 06/28/22 1017 06/28/22 1315 06/29/22 1135 06/30/22 0958 WBC 13.4* -- 12.9* 13.6* RBC 3.76* -- 3.74* 3.76* HGB 11.4* -- 11.4* 11.6* HCT 35.4* -- 35.7* 36.0* MCV 94.1 -- 95.5 95.7 MCH 30.3 -- 30.5 30.9 MCHC 32.2 -- 31.9 32.2 RDW 13.4 -- 13.5 13.7 PLT 357 -- 301 276 MPV 10.4 -- 9.7 9.7 INR -- 1.0 -- -- Chemistry: Recent Labs 06/28/22 0927 06/28/22 1017 06/29/22 0747 06/29/22 1135 NA 136 136 -- 138 K 3.9 3.7 -- 4.0 CL 98 97* -- 103 CO2 24 24 -- 24 GLUCOSE 166* 184* -- 161* BUN 42* 42* -- 43* CREATININE 4.49* 4.44* 4.68* 4.38* ANIONGAP 14 15 -- 11 LABGLOM 14* 14* -- 15* CALCIUM 9.3 9.1 -- 9.1 Recent Labs 06/29/22 1029 06/29/22 1135 06/29/22 1157 06/29/22 1746 06/29/22200106/30/22 0548 POCGLU 163* 157* 179* 142* 208* 174* ABG: Lab Results Component Value Date/Time POCPH 7.423 06/26/2022 01:49 PM POCPCO2 42.6 06/26/2022 01:49 PM POCPO2 78.7 06/26/2022 01:49 PM POCHCO3 27.8 06/26/2022 01:49 PM PBEA 3 06/26/2022 01:49 PM XOZG5QEG 96 06/26/2022 01:49 PM FIO2 30.0 06/26/2022 01:49 PM Lab Results Component Value Date/Time SPECIAL RAC 10ML 06/20/2022 03:51 AM Lab Results Component Value Date/Time CULTURE 06/20/2022 08:28 AM NO SIGNIFICANT GROWTH Identified as : VIRIDANS STREPTOCOCCUS GROUP <[id number] CFU/ML Radiology: CT HEAD WO CONTRAST Result Date: 06/26/2022 No acute intracranial abnormality. XR CHEST PORTABLE Result Date: 06/26/2022 No acute cardiopulmonary process. Right internal jugular line with the tip near the cavoatrial junction. IR TUNNELED CVC PLACE WO SQ PORT/PUMP > 5 YEARS Result Date: 06/28/2022 Successful ultrasound and fluoroscopy guided tunneled catheter placement, as above. Dialysis catheter is ready for use at this time. IR NON TUNNELED CATH WO PORT REPLACEMENT Result Date: 06/24/2022 Successful ultrasound and fluoroscopy guided non-tunneled hemodialysis catheter placement via the right internal jugular vein. Okay to use. Physical Examination: Physical Exam Constitutional: Appearance: He is obese. Comments: Chronically ill-appearing HENT: Right Ear: External ear normal. Left Ear: External ear normal. Nose: No congestion. Comments: Nasal cannula Mouth/Throat: Mouth: Mucous membranes are moist. Eyes: Pupils: Pupils are equal, round, and reactive to light. Cardiovascular: Comments: Regular rate and rhythm, no murmurs rubs or gallops Pulmonary: Comments: Diminished breath sounds at bases, no wheezing, no rhonchi, no crackles Abdominal: Palpations: Abdomen is soft. Tenderness: There is no abdominal tenderness. There is no guarding. Musculoskeletal: Cervical back: Neck supple. Right lower leg: No edema. Left lower leg: No edema. Skin: General: Skin is dry. Capillary Refill: Capillary refill takes less than 2 seconds. Coloration: Skin is pale. Neurological: General: No focal deficit present. Mental Status: He is alert and oriented to person, place, and time. Psychiatric: Mood and Affect: Mood normal. Behavior: Behavior normal. Assessment: Hospital Problems Last Modified POA * (Principal) DAISY (acute kidney injury) ([facility]) 06/20/2022 Yes Acute kidney injury superimposed on CKD (HCC) 06/20/2022 Yes Chronic kidney disease 06/20/2022 Yes Type 2 diabetes mellitus with stage 3a chronic kidney disease (HCC) 06/20/2022 Yes Hyperlipidemia 06/20/2022 Yes Primary hypertension 06/20/2022 Yes Left ureteral stone 06/20/2022 Yes BRITTANY (generalized anxiety disorder) 06/20/2022 Yes Major depressive disorder, recurrent, moderate (HCC) 06/20/2022 Yes Bandemia 06/20/2022 Yes Pyelonephritis 06/29/2022 Yes 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 Yes Hyponatremia 06/21/2022 Yes Dependence on renal dialysis (HCC) 06/29/2022 Yes Metabolic acidosis 06/29/2022 Yes Plan: Acute emphysematous cystitis. Appreciate urology, infectious disease, nephrology recommendations. Plan to remove Carballo catheter 06/30/2022. Continue with cefepime for antibiotics with dialysis. CKD stage III with worsening renal function requiring dialysis. Will need placement as outpateint Discharge planning today to [facility] Discussed with case management, appreciate assistance Love Hess MD 06/30/2022 11:03 AM * Kristina Burleson MD - 06/30/2022 8:02 AM EDT Images from the original note were not included. Kevin Myles MD FACS Urology Progress Note Subjective: S/p left ureteral stone basket, stent removal 06/29/22 No fevers No acute events overnight Currently on cefepime per ID recs for streptococcus positive urine Cx Denies fever, chills, nausea and vomiting UOP 500 cc Underwent dialysis yesterday Cr 4.38 (4.44) WBC 12.9 (13.4) Patient Vitals for the past 24 hrs: BP Temp Temp src Pulse Resp SpO2 Weight 06/30/22 0737 126/84 97.5 F (36.4 C) Oral 84 19 91 % -- 06/30/22 0512 -- -- -- -- -- -- (!) 337 lb 15.4 oz (153.3 kg) 06/30/22 0332 -- -- -- -- 13 -- -- 06/30/22 0008 -- -- -- -- 12 -- -- 06/29/222115 -- -- -- -- 10 -- -- 06/29/222052 125/84 97.9 F (36.6 C) Oral 77 18 98 % -- 06/29/22 1737 116/78 97.9 F (36.6 C) Oral 83 19 97 % -- 06/29/22 1700 (!) 174/92 98 F (36.7 C) -- 77 18 -- (!) 335 lb 1.6 oz (152 kg) 06/29/22 1658 -- 97.9 F (36.6 C) -- 80 18 -- -- 06/29/22 1654 -- 97.9 F (36.6 C) -- -- -- -- -- 06/29/22 1320 (!) 171/91 -- -- 77 -- -- -- 06/29/22 1314 -- 97.1 F (36.2 C) -- -- 19 -- (!) 338 lb 6.5 oz (153.5 kg) 06/29/22 1109 (!) 143/82 98.4 F (36.9 C) -- 80 16 95 % -- 06/29/22 1045 137/81 -- -- 80 13 94 % -- 06/29/22 1030 134/83 -- -- 81 13 96 % -- 06/29/22 1024 132/89 97.3 F (36.3 C) -- 82 13 95 % -- Intake/Output Summary (Last 24 hours) at 06/30/2022 0802 Last data filed at 06/30/2022 0627 Gross per 24 hour Intake 700 ml Output 2300 ml Net -1600 ml Recent Labs 06/28/2292606/28/22 1017 06/29/22 1135 WBC 13.5* 13.4* 12.9* HGB 11.7* 11.4* 11.4* HCT 37.1* 35.4* 35.7* MCV 97.4 94.1 95.5 PLT 301 357 301 Recent Labs 06/28/22926 06/28/22 1017 06/29/22 0747 06/29/22 1135 NA 136 136 -- 138 K 3.9 3.7 -- 4.0 CL 98 97* -- 103 CO2 24 24 -- 24 BUN 42* 42* -- 43* CREATININE 4.49* 4.44* 4.68* 4.38* No results for input(s): COLORU, PHUR, LABCAST, WBCUA, RBCUA, MUCUS, TRICHOMONAS, YEAST, BACTERIA, CLARITYU, SPECGRAV, LEUKOCYTESUR, UROBILINOGEN, BILIRUBINUR, BLOODU in the last 72 hours. Invalid input(s): NITRATE, GLUCOSEUKETONESUAMORPHOUS Additional Lab/culture results: Physical Exam: AO x 3/ On BiPAP Neck supple Chest: NLB Circulatory: peripheries warm and well perfused Abdomen: soft Interval Imaging Findings: none Impression: Patient Active Problem List Diagnosis DAISY (acute kidney injury) (HCC) Acute kidney injury superimposed on CKD (HCC) Chronic kidney disease Type 2 diabetes mellitus with stage 3a chronic kidney disease (HCC) Hyperlipidemia Primary hypertension Urinary tract obstruction by kidney stone Hydronephrosis of left kidney Atrophy of right kidney Left ureteral stone Debility BRITTANY (generalized anxiety disorder) Major depressive disorder, recurrent, moderate (HCC) Tremor Bandemia Pyelonephritis Emphysematous cystitis Hyponatremia Dependence on renal dialysis (HCC) Metabolic acidosis S/p left ureteral stone basket, stent removal 06/29/22 Plan: Carballo catheter removed, follow up PVRs Most recent urine Cx from 06/20 - Continue cefepime per ID recs Appreciate nephrology recommendations Please do not hesitate to call urology with any questions or concerns Kristina Burleson MD 8:02 AM 06/30/2022 * Kari Mcbride RN - 06/29/2022 5:11 PM EDT Dialysis Post Treatment Note Vitals: 06/29/22 1700 BP: (!) 174/92 Pulse: 77 Resp: 18 Temp: 98 F (36.7 C) SpO2: Pre-Weight = 153.5KG Post-weight = Weight: (!) 335 lb 1.6 oz (152 kg) Total Liters Processed = Blood Volume Processed (Liters): 44.53 l/min Rinseback Volume (mL) = Rinseback Volume (ml): 300 ml Net Removal (mL) = 1500mL Type of access used=RT tunneled cath Length of treatment=3.5 hours Pt tolerated tx well. * Kari Mcbride RN - 06/29/2022 1:26 PM EDT Dialysis Time Out To be done by RN and tech or 2 RNs Staff Names Tjnilton Ariza and Kassandra Bowie [x] Identity of the patient using 2 patient identifiers [x] Consent for treatment [x] Equipment-proper machine and dialyzer [x] B-Hep B status [x] Orders- to include bath, blood flow, dialyzer, time and fluid removal [x] Access-Correct site and in working order [x] Time for patient to ask questions. * Love Hess MD - 06/29/2022 12:28 PM EDT Images from the original note were not included. [facility] Office: [phone] Chris Osman DO, Terrence Johns DO, Stefani Augustin DO, Jaspreet Mosley DO, Surekha Batista MD, Adrienne Means MD, Rosales Singh MD, Caitlyn Benz MD, Abdoul Camargo MD, Cathy Farooq MD, Chepe Cordova DO, Love Hess MD, Deja Guevara DO, April Girard MD, Arvin Maya MD, Jessica Osman DO, Shima Watson MD, Raphael Connor MD, Jerome Simon DO, Yoselyn Thakkar MD, Codi Self MD, Gilda Sousa MD, Sheyla Viveros MD, Vikki Adorno MD, Jarocho Real DO, Krishan Vogt MD, Radha William MD, Shaunna Freitas, KARINA, Prabha Hauser, KARINA, Shirlene Dacosta, KARINA, Favian Ji, KARINA, Yesenia Espino, TEJINDER, Ema Mason, KARINA, Calista Mendez, HOUSE MOVING SUPERVISOR, Gunjan Ruiz, HOUSE MOVING SUPERVISOR, Sharon Barry, HOUSE MOVING SUPERVISOR, Sri Weiner, HOUSE MOVING SUPERVISOR, MEGAN SosaC, Carleen Paiz, [facility], Catie Cheema, HOUSE MOVING SUPERVISOR, Chelsea Kulkarni, KARINA [facility] IN-PATIENT SERVICE [facility] Progress Note 06/29/2022 12:28 PM Name: Steven Walden Acct: [id number] Room: [facility] Day: 9 Admit Date: 06/20/2022 1:58 AM PCP: Darion Randle MD Code Status: Full Code Subjective: C/C: Chief Complaint Patient presents with Fall Fever Flank Pain Interval History Status: improved. Patient seen and examined. Status post cystoscopy. Feeling better. No back pain, no flank pain, fevers have resolved. Slight hypertension but otherwise doing well. Brief History: 62-year-old male past medical history of CKD stage III, diabetes, hypertension, hyperlipidemia, obesity, obesity hypoventilation syndrome presents with fevers chills left-sided flank pain for the past 3 days found to have emphysematous cystitis and being followed by urology and infectious disease. Kidney function unfortunately worsened and was started on dialysis. Plan for tunnel catheter placement on 06/30/2022. Patient underwent cystoscopy, left stent removal, stone basketing with urology on 06/29/2022. Patient to continue with cefepime for antibiotics till 07/02/2022. Discharge planning to acute rehab. Patient has been followed by urology, nephrology, physiatry. Review of Systems: Review of Systems Constitutional: Negative for activity change and fatigue. HENT: Negative for congestion and nosebleeds. Eyes: Negative for pain and redness. Respiratory: Negative for choking and shortness of breath. Cardiovascular: Negative for chest pain and palpitations. Gastrointestinal: Negative for abdominal distention and diarrhea. Genitourinary: Negative for difficulty urinating and hematuria. Psychiatric/Behavioral: Negative for agitation and behavioral problems. Medications: Allergies: No Known Allergies Current Meds: Scheduled Meds: cefepime 2,000 mg IntraVENous Once per day on Tue Sat gabapentin 300 mg Oral Daily insulin glargine 25 Units SubCUTAneous Nightly brexpiprazole 2 mg Oral Daily senna 1 tablet Oral Nightly polyethylene glycol 17 g Oral Daily bisacodyl 10 mg Rectal Daily heparin (porcine) 5,000 Units SubCUTAneous 3 times per day allopurinol 100 mg Oral Daily atorvastatin 20 mg Oral Nightly budesonide-formoterol 2 puff Inhalation BID lamoTRIgine 200 mg Oral Daily mirtazapine 30 mg Oral Nightly pantoprazole 40 mg Oral QAM AC propranolol 20 mg Oral TID tamsulosin 0.4 mg Oral Daily venlafaxine 150 mg Oral Daily sodium chloride flush 5-40 mL IntraVENous 2 times per day insulin lispro 0-8 Units SubCUTAneous TID WC insulin lispro 0-4 Units SubCUTAneous Nightly Continuous Infusions: sodium chloride dextrose PRN Meds: ALPRAZolam, heparin (porcine), heparin (porcine), albuterol sulfate HFA, sodium chloride flush, sodium chloride, ondansetron OR ondansetron, acetaminophen OR acetaminophen, glucose,dextrose bolus OR dextrose bolus, glucagon (rDNA), dextrose, lidocaine, oxyCODONE Data: Past Medical History: has a past medical history of Anxiety, Chronic kidney disease, Congenital heart defect, Diabetes mellitus (HCC), Gout, Hyperlipidemia, Hypertension, Major depressive disorder, Morbid obesity (HCC), Neuropathy, SHADE (obstructive sleep apnea), and Peptic ulcer disease. Social History: reports that he has never smoked. He has never used smokeless tobacco. He reports current alcohol use. Family History: Family History Problem Relation Age of Onset Heart Disease Mother pacer Cancer Sister 58 Kidney Vitals: BP (!) 143/82 Pulse 80 Temp 98.4 F (36.9 C) Resp 16 Ht 6' 5 (1.956 m) Wt (!) 343 lb 7.6 oz (155.8 kg) SpO2 95% BMI 40.73 kg/m Temp (24hrs), Av.8 F (36.6 C), Min:97.3 F (36.3 C), Max:98.4 F (36.9 C) Recent Labs 06/29/22 0747 06/29/22 1029 06/29/22 1135 06/29/22 1157 POCGLU 153* 163* 157* 179* I/O (24Hr): Intake/Output Summary (Last 24 hours) at 06/29/2022 1228 Last data filed at 06/29/2022 1001 Gross per 24 hour Intake 300 ml Output 1300 ml Net -1000 ml Labs: Hematology: Recent Labs 06/28/22 0927 06/28/22 1017 06/28/22 1315 06/29/22 1135 WBC 13.5* 13.4* -- 12.9* RBC 3.81* 3.76* -- 3.74* HGB 11.7* 11.4* -- 11.4* HCT 37.1* 35.4* -- 35.7* MCV 97.4 94.1 -- 95.5 MCH 30.7 30.3 -- 30.5 MCHC 31.5 32.2 -- 31.9 RDW 13.5 13.4 -- 13.5 PLT 301 357 -- 301 MPV 9.9 10.4 -- 9.7 INR -- -- 1.0 -- Chemistry: Recent Labs 06/27/22 0541 06/28/22 0927 06/28/22 1017 06/29/22 0747 NA 140 136 136 -- K 3.7 3.9 3.7 -- CL 100 98 97* -- CO2 25 24 24 -- GLUCOSE 120* 166* 184* -- BUN 35* 42* 42* -- CREATININE 4.39* 4.49* 4.44* 4.68* ANIONGAP 15 14 15 -- LABGLOM 15* 14* 14* -- CALCIUM 9.2 9.3 9.1 -- Recent Labs 06/28/22202306/29/22 0552 06/29/22 0747 06/29/22 1029 06/29/22 1135 06/29/22 1157 POCGLU 181* 145* 153* 163* 157* 179* ABG: Lab Results Component Value Date/Time POCPH 7.423 06/26/2022 01:49 PM POCPCO2 42.6 06/26/2022 01:49 PM POCPO2 78.7 06/26/2022 01:49 PM POCHCO3 27.8 06/26/2022 01:49 PM PBEA 3 06/26/2022 01:49 PM TSFP4IKY 96 06/26/2022 01:49 PM FIO2 30.0 06/26/2022 01:49 PM Lab Results Component Value Date/Time SPECIAL RAC 10ML 06/20/2022 03:51 AM Lab Results Component Value Date/Time CULTURE 06/20/2022 08:28 AM NO SIGNIFICANT GROWTH Identified as : VIRIDANS STREPTOCOCCUS GROUP <[id number] CFU/ML Radiology: CT HEAD WO CONTRAST Result Date: 06/26/2022 No acute intracranial abnormality. XR CHEST PORTABLE Result Date: 06/26/2022 No acute cardiopulmonary process. Right internal jugular line with the tip near the cavoatrial junction. IR TUNNELED CVC PLACE WO SQ PORT/PUMP > 5 YEARS Result Date: 06/28/2022 Successful ultrasound and fluoroscopy guided tunneled catheter placement, as above. Dialysis catheter is ready for use at this time. IR NON TUNNELED CATH WO PORT REPLACEMENT Result Date: 06/24/2022 Successful ultrasound and fluoroscopy guided non-tunneled hemodialysis catheter placement via the right internal jugular vein. Okay to use. Physical Examination: Physical Exam Constitutional: Appearance: He is obese. Comments: Chronically ill-appearing HENT: Right Ear: External ear normal. Left Ear: External ear normal. Nose: No congestion. Comments: Nasal cannula Mouth/Throat: Mouth: Mucous membranes are moist. Eyes: Pupils: Pupils are equal, round, and reactive to light. Cardiovascular: Comments: Regular rate and rhythm, no murmurs rubs or gallops Pulmonary: Comments: Diminished breath sounds at bases, no wheezing, no rhonchi, no crackles Abdominal: Palpations: Abdomen is soft. Tenderness: There is no abdominal tenderness. There is no guarding. Genitourinary: Comments: Carballo catheter in place draining serosanguineous output Musculoskeletal: Cervical back: Neck supple. Right lower leg: No edema. Left lower leg: No edema. Skin: General: Skin is dry. Capillary Refill: Capillary refill takes less than 2 seconds. Coloration: Skin is pale. Neurological: General: No focal deficit present. Mental Status: He is alert and oriented to person, place, and time. Psychiatric: Mood and Affect: Mood normal. Behavior: Behavior normal. Assessment: Hospital Problems Last Modified POA * (Principal) DAISY (acute kidney injury) ([facility]) 06/20/2022 Yes Acute kidney injury superimposed on CKD ([facility]) 06/20/2022 Yes Chronic kidney disease 06/20/2022 Yes Type 2 diabetes mellitus with stage 3a chronic kidney disease ([facility]) 06/20/2022 Yes Hyperlipidemia 06/20/2022 Yes Primary hypertension 06/20/2022 Yes Left ureteral stone 06/20/2022 Yes BRITTANY (generalized anxiety disorder) 06/20/2022 Yes Major depressive disorder, recurrent, moderate ([facility]) 06/20/2022 Yes Bandemia 06/20/2022 Yes Pyelonephritis of left kidney 06/20/2022 Yes 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 Yes Hyponatremia 06/21/2022 Yes Plan: Acute emphysematous cystitis. Appreciate urology, infectious disease, nephrology recommendations. Plan to remove Carballo catheter 06/30/2022. Continue with cefepime for antibiotics with dialysis. CKD stage III with worsening renal function requiring dialysis. Will need placement as outpateint Discharge planning most likely next 24 hours. Plan for void trial on 06/30/22 in the morning. Continue dialysis per nephrology recommendations Love Hess MD 06/29/2022 12:28 PM * Yo Batista MD - 06/29/2022 9:57 AM EDT Nephrology Progress Note SUBJECTIVE Patient was seen and examined on HD. Tolerating the procedure well. No new issues reported overnight. Patient remained afebrile and hemodynamically stable. Yesterday, patient's nontunneled dialysis catheter was nonfunctioning and patient was unable to receive hemodialysis session. Tunneled catheter was placed by IR yesterday 06/28/2022 and now working well. Dialysis was initiated on 06/24/2022. Patient underwent cystoscopy, ureteroscopy and stent removal and stone basketing today 06/29/2022 byurology. Patient was n.p.o. since midnight for that. He reported doing well post procedure. Denies any complains. Uout: 1.3 L/24 hours; Patient has a Carballo's catheter in place. Labs reviewed: BMP pending; POC BMP labs showed: Na 140, K 4, BUN 49<<42; Cr 4.68<<4.44; Hgb 12.2; HPI: 62-year-old male with a PMH significant of type II DM, diagnosed 15 years ago with vision compromise (no diagnosis of retinopathy), A1c has been fluctuating between 7 and 11 according to his family, CKD stage III, used to follow up at [facility] nephrology, has not seen retort loader in the last 6 years, with unknown baseline creatinine, chronic lower extremity edema, morbid obesity (BMI 41.5),essential hypertension, remote history of nephrolithiasis. He presented with fever, chills and left-sided flank pain days prior to presentation on 06/20/2022. Patient also had apparently a fall at home. Patient was recently admitted in May for an obstructing stone and solitary working kidney, urology had placed stent and Carballo was placed with intraoperative dilation. Patient now has gross hematuria. Patient was supposed to follow-up in 2 weeks with urology for definitive stone treatment however patient did not follow-up. Patient was found to have emphysematous cystitis. Patient was taking Farxiga on discharge. OBJECTIVE CURRENT TEMPERATURE: Temp: 97.7 F (36.5 C) MAXIMUM TEMPERATURE OVER 24HRS: Temp (24hrs), Av.9 F (36.6 C), Min:97.5 F (36.4 C), Max:98.4 F (36.9 C) CURRENT RESPIRATORY RATE: Resp: 16 CURRENT PULSE: Heart Rate: 68 CURRENT BLOOD PRESSURE: BP: 133/67 24HR BLOOD PRESSURE RANGE: Systolic (24hrs), Av , Min:125 , Max:145 ; Diastolic (24hrs), Av, Min:56, Max:87 24HR INTAKE/OUTPUT: Intake/Output Summary (Last 24 hours) at 06/29/2022 0957 Last data filed at 06/29/2022 0929 Gross per 24 hour Intake 200 ml Output 1300 ml Net -1100 ml PHYSICAL EXAM General: AAO x 3, NAD. HEENT: Atraumatic, normocephalic. Eyes: Normal conjunctiva, no icterus Neck: No JVD, no accessory muscle use, midline trachea Chest: Good bilateral air entry and clear to auscultation bilaterally and symmetrically with no wheezes or rales or rhonchi Cardiac: S1 S2 audible. No S3. Abdomen: Obese and soft and not tender not distended with active bowel sounds : No suprapubic or flank tenderness. Carballo in place with blood-tinged urine Neuro: AAO x 3, No FND. No asterixis or clonus SKIN: No rashes, good skin turgor. Extremities: Mild peripheral edema, no cyanosis CURRENT MEDICATIONS lidocaine 1 % injection 1 mL, Once PRN fentaNYL (SUBLIMAZE) injection 25 mcg, Once PRN Or fentaNYL (SUBLIMAZE) injection 50 mcg, Once PRN scopolamine (TRANSDERM-SCOP) transdermal patch 1 patch, Q72H lactated ringers IV soln infusion, Continuous midazolam PF (VERSED) injection 1 mg, Q10 Min PRN 0.9 % sodium chloride infusion, Continuous sod chloride IRR soln 0.9 % irrigation, Continuous PRN sterile water for irrigation, PRN [Jun] cefepime (MAXIPIME) 2,000 mg in sterile water 20 mL IV syringe, Once per day on Tue Sat [Jun] gabapentin (NEURONTIN) capsule 300 mg, Daily [JUN Hold] insulin glargine (LANTUS) injection vial 25 Units, Nightly [Jun] ALPRAZolam (XANAX) tablet 0.5 mg, BID PRN [JUN Hold] heparin (porcine) injection 1,100 Units, PRN [JUN Hold] heparin (porcine) injection 1,400 Units, PRN [JUN Hold] brexpiprazole (REXULTI) tablet 2 mg, Daily [JUN Hold] senna (SENOKOT) tablet 8.6 mg, Nightly [JUN Hold] polyethylene glycol (GLYCOLAX) packet 17 g, Daily [JUN Hold] bisacodyl (DULCOLAX) suppository 10 mg, Daily [JUN Hold] heparin (porcine) injection 5,000 Units, 3 times per day [JUN Hold] albuterol sulfate HFA (PROVENTIL;VENTOLIN;PROAIR) 108 (90 Base) MCG/ACT inhaler 2 puff, Q6H PRN [JUN Hold] allopurinol (ZYLOPRIM) tablet 100 mg, Daily [MAR Hold] atorvastatin (LIPITOR) tablet 20 mg, Nightly [JUN Hold] budesonide-formoterol (SYMBICORT) 80-4.5 MCG/ACT inhaler 2 puff, BID [Jun] lamoTRIgine (LAMICTAL) tablet 200 mg, Daily [JUN Hold] mirtazapine (REMERON) tablet 30 mg, Nightly [JUN Hold] pantoprazole (PROTONIX) tablet 40 mg, QAM AC [Jun] propranolol (INDERAL) tablet 20 mg, TID [JUN Hold] tamsulosin (FLOMAX) capsule 0.4 mg, Daily [JUN Hold] venlafaxine (EFFEXOR XR) extended release capsule 150 mg, Daily [Jun] sodium chloride flush 0.9 % injection 5-40 mL, 2 times per day [JUN Hold] sodium chloride flush 0.9 % injection 5-40 mL, PRN [Jun] 0.9 % sodium chloride infusion, PRN [Jun] ondansetron (ZOFRAN-ODT) disintegrating tablet 4 mg, Q8H PRN Or [Jun] ondansetron (ZOFRAN) injection 4 mg, Q6H PRN [JUN Hold] acetaminophen (TYLENOL) tablet 650 mg, Q6H PRN Or [JUN Hold] acetaminophen (TYLENOL) suppository 650 mg, Q6H PRN [JUN Hold] insulin lispro (HUMALOG) injection vial 0-8 Units, TID WC [JUN Hold] insulin lispro (HUMALOG) injection vial 0-4 Units, Nightly [Jun] glucose chewable tablet 16 g, PRN [Jun] dextrose bolus 10% 125 mL, PRN Or [JUN Hold] dextrose bolus 10% 250 mL, PRN [JUN Hold] glucagon (rDNA) injection 1 mg, PRN [Jun] dextrose 10 % infusion, Continuous PRN [Jun] lidocaine (XYLOCAINE) 2 % uro-jet, PRN [JUN Hold] oxyCODONE (ROXICODONE) immediate release tablet 5 mg, Q4H PRN midazolam (VERSED) injection, PRN lidocaine PF 1 % injection, PRN propofol injection, PRN fentaNYL (SUBLIMAZE) injection, PRN phenylephrine (KAREN-SYNEPHRINE) injection, PRN ketamine (KETALAR) injection, PRN ceFAZolin (ANCEF) injection, PRN LABS CBC: Recent Labs 06/27/22 0541 06/28/22 0927 06/28/22 1017 WBC 14.1* 13.5* 13.4* RBC 3.57* 3.81* 3.76* HGB 11.9* 11.7* 11.4* HCT 34.5* 37.1* 35.4* MCV 96.6 97.4 94.1 MCH 33.3 30.7 30.3 MCHC 34.5 31.5 32.2 RDW 14.1 13.5 13.4 PLT 487* 301 357 MPV 11.9 9.9 10.4 BMP: Recent Labs 06/27/22 0541 06/28/22 0927 06/28/22 1017 06/29/22 0747 NA 140 136 136 -- K 3.7 3.9 3.7 -- CL 100 98 97* -- CO2 25 24 24 -- BUN 35* 42* 42* -- CREATININE 4.39* 4.49* 4.44* 4.68* GLUCOSE 120* 166* 184* -- CALCIUM 9.2 9.3 9.1 -- SPEP: Lab Results Component Value Date/Time PROT 7.8 06/20/2022 03:31 AM ALBCAL 3.4 05/28/2022 08:45 PM ALBPCT 51 05/28/2022 08:45 PM LABALPH 0.3 05/28/2022 08:45 PM LABALPH 1.1 05/28/2022 08:45 PM A1PCT 4 05/28/2022 08:45 PM A2PCT 16 05/28/2022 08:45 PM LABBETA 0.9 05/28/2022 08:45 PM BETAPCT 14 05/28/2022 08:45 PM GAMGLOB 1.0 05/28/2022 08:45 PM GGPCT 15 05/28/2022 08:45 PM PATH ELECTRONICALLY SIGNED. KUSUM VILLAFANA M.D. 06/21/2022 09:35 PM UPEP: Lab Results Component Value Date/Time TPU 187 06/21/2022 09:35 PM TPU 187 06/21/2022 09:35 PM HEPBSAG: Lab Results Component Value Date/Time HEPBSAG NONREACTIVE 06/21/2022 02:32 PM HEPCAB: Lab Results Component Value Date/Time HEPCAB NONREACTIVE 06/21/2022 02:32 PM C3: Lab Results Component Value Date C3 167 06/21/2022 C4: Lab Results Component Value Date C4 58 (H) 06/21/2022 URINE SODIUM: Lab Results Component Value Date/Time KYLAH 41 06/21/2022 09:35 PM URINE POTASSIUM: Lab Results Component Value Date/Time KUR 19.1 06/21/2022 09:35 PM URINE OSMOLARITY: Lab Results Component Value Date/Time OSMOU 361 06/21/2022 09:35 PM URINE CREATININE: Lab Results Component Value Date/Time LABCREA 99.0 06/21/2022 09:35 PM URINE PROTEIN: Lab Results Component Value Date/Time TPU 187 06/21/2022 09:35 PM TPU 187 06/21/2022 09:35 PM URINALYSIS: U/A: Lab Results Component Value Date/Time NITRU NEGATIVE 06/20/2022 08:30 AM COLORU [place] 06/20/2022 08:30 AM PHUR 5.5 06/20/2022 08:30 AM WBCUA 5 TO 10 06/20/2022 08:30 AM RBCUA TOO NUMEROUS TO COUNT 06/20/2022 08:30 AM BACTERIA FEW 06/20/2022 08:30 AM SPECGRAV 1.010 06/20/2022 08:30 AM LEUKOCYTESUR SMALL 06/20/2022 08:30 AM UROBILINOGEN Normal 06/20/2022 08:30 AM BILIRUBINUR NEGATIVE 06/20/2022 08:30 AM GLUCOSEU NEGATIVE 06/20/2022 08:30 AM KETUA NEGATIVE 06/20/2022 08:30 AM RADIOLOGY Reviewed as available. ASSESSMENT 1. Acute Kidney Injury: Nonoliguric secondary to ATN (complicated UTI) -dialysis dependent since 06/24/2022. Nonoliguric urine output with blood-tinged urine (hematuria improved) and Carballo in place but seems to have poor clearances. Has tunneled catheter which was replaced by IR on 06/28/2022. 2. High anion gap metabolic acidosis secondary to acute kidney injury-resolved 3. Hyponatremia -combination of appropriate (volume depletion) and inappropriate (infection) ADH excess- resolved. 4. Chronic kidney disease stage IIIb secondary to diabetic nephrosclerosis with baseline creatininelikely 2.1-2.3 mg/dl. 5. 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 History of left hydronephrosis recently with urological surgical intervention and stent placement last month 7. Type II DM has been on Farxiga at home 8. Complicated UTI/pyelonephritis post stent placement 9. Left-sided nephrolithiasis cystoscopy, ureteroscopy and stent removal and stone basketing 06/29/2022 by urology. PLAN Patient was seen and examined on HD at bedside. Orders were confirmed with the HD nurse. Postop management per urology. Continue antibiotics as per GFR<15. Avoid nephrotoxin. Continue on renal diet. BMP in AM. director patient financial services to help towards finding outpatient hemodialysis spot but might be getting discharged to [facility]. Will follow. Please do not hesitate to call with questions. Angel Frazier MD, MPH, PGY-2 Internal Medicine Resident [facility], [place], [place] Attending Physician Statement I have discussed the care of this patient, including pertinent history and exam findings, with the Resident/HOUSE MOVING SUPERVISOR. I have reviewed and edited the [place] elements of all parts of the encounter with the Resident/HOUSE MOVING SUPERVISOR. I agree with the assessment, plan and orders as documented by the Resident/HOUSE MOVING SUPERVISOR. Yo Batista MD [facility] This note is created with the assistance of a speech-recognition program. While intending to generate a document that actually reflects the content of the visit, no guarantees can be provided that every mistake has been identified and corrected by editing. * Kassandra Kaye PTA - 06/29/2022 7:46 AM EDT Images from the original note were not included. Physical Therapy Physical Therapy Cancel Note DATE: 06/29/2022 NAME: Steven Walden : 1960 Patient not seen this date for Physical Therapy due to: CYSTOSCOPY, URETEROSCOPY, STENT EXCHANGE * Emiliano Leavitt MD - 06/29/2022 6:54 AM EDT Images from the original note were not included. Kevin Myles MD [facility] Urology Progress Note Subjective: S/p left ureteral stent in a solitary kidney No acute events overnight Currently on cefepime per ID recs for streptococcus positive urine Cx Denies fever, chills, nausea and vomiting UOP 1300 cc Patient Vitals for the past 24 hrs: BP Temp Temp src Pulse Resp SpO2 Height Weight 06/29/22 0555 -- -- -- -- -- -- -- (!) 343 lb 7.6 oz (155.8 kg) 06/29/22 0350 -- -- -- -- 16 -- -- -- 06/28/22 2115 -- -- -- -- 16 -- -- -- 06/28/22 1939 137/87 97.9 F (36.6 C) Oral 80 18 94 % -- -- 06/28/22 1555 (!) 125/56 -- -- 79 19 95 % -- -- 06/28/22 1550 131/66 -- -- 80 20 94 % -- -- 06/28/22 1545 133/69 -- -- 78 20 94 % -- -- 06/28/22 1540 128/63 -- -- 79 24 94 % -- -- 06/28/22 1535 (!) 145/59 -- -- 78 19 94 % -- -- 06/28/22 1530 (!) 145/59 -- -- 78 23 93 % -- -- 06/28/22 1325 -- -- -- -- -- -- 6' 5 (1.956 m) -- 06/28/22 1258 (!) 143/82 97.5 F (36.4 C) Oral 85 -- 95 % -- -- 06/28/22 1002 -- 98.4 F (36.9 C) -- -- 18 -- -- (!) 337 lb 15.4 oz (153.3 kg) 06/28/22 0920 -- -- -- -- -- 94 % -- -- 06/28/22 0805 118/76 98.1 F (36.7 C) Oral 70 15 94 % -- -- Intake/Output Summary (Last 24 hours) at 06/29/2022 0654 Last data filed at 06/29/2022 0346 Gross per 24 hour Intake -- Output 1300 ml Net -1300 ml Recent Labs 06/27/22 0541 06/28/22 0927 WBC 14.1* 13.5* HGB 11.9* 11.7* HCT 34.5* 37.1* MCV 96.6 97.4 PLT 487* 301 Recent Labs 06/27/22 0541 06/28/22 0927 06/28/22 1017 NA 140 136 136 K 3.7 3.9 3.7 CL 100 98 97* CO2 25 24 24 BUN 35* 42* 42* CREATININE 4.39* 4.49* 4.44* No results for input(s): COLORU, PHUR, LABCAST, WBCUA, RBCUA, MUCUS, TRICHOMONAS, YEAST, BACTERIA, CLARITYU, SPECGRAV, LEUKOCYTESUR, UROBILINOGEN, BILIRUBINUR, BLOODU in the last 72 hours. Invalid input(s): NITRATE, GLUCOSEUKETONESUAMORPHOUS Additional Lab/culture results: Physical Exam: AO x 3/ On BiPAP Neck supple Chest: NLB Circulatory: peripheries warm and well perfused Abdomen: soft Interval Imaging Findings: none Impression: Patient Active Problem List Diagnosis DAISY (acute kidney injury) (HCC) Acute kidney injury superimposed on CKD (HCC) Chronic kidney disease Type 2 diabetes mellitus with stage 3a chronic kidney disease ([facility]) Hyperlipidemia Primary hypertension Urinary tract obstruction by kidney stone Hydronephrosis of left kidney Atrophy of right kidney Left ureteral stone Debility BRITTANY (generalized anxiety disorder) Major depressive disorder, recurrent, moderate ([facility]) Tremor Bandemia Pyelonephritis of left kidney Emphysematous cystitis Hyponatremia Plan: Maintain carballo catheter as needed for I/O monitoring Most recent urine Cx from 06/20 - NG Continue cefepime per ID recs WBC 13.5 (14) Ok per ID for ureteroscopy today Keep NPO until then Shiva Damodaran, MD 6:54 AM 06/29/2022 * Kari Mcbride RN - 06/28/2022 6:06 PM EDT Pt arterial pressures elevated despite all provided interventions. Both arterial and venous lumens had sluggish blood return upon tx initiation. MD notified. IR will place tunneled cath today, hold HD per Dr Ballard. * Allegra Scherer MD - 06/28/2022 1:53 PM EDT Images from the original note were not included. 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 Emphysematous cystitis-strep low count bandemia Bilateral nonobstructive kidney stones Diabetes mellitus, CKD 3, obesity Discussion / summary of stay / plan of care Up trending WBC since admission Today's WBC 13.5, down from 14.1 Recommendations BC neg Post Zosyn vanco Then zyvox zosyn 06/22 switch AB to cefepime 2 g QHD till 07/02 - reconsield to treat the Streptococcus growing in the urine Tunneled placed 06/28 Severely depressed - med to resume past doses of antidepressants 06/28 - WBC slightly elevated - no clear cause on exam -no fever Ok for procedure Ok for DC Infection Control Recommendations [place] Precautions Contact Isolation Antimicrobial Stewardship Recommendations Simplification of therapy Targeted therapy History of Present Illness: Initial history: Steven Walden is a 62 y.o.-year-old male presents with a left flank pain, dysuria, as well as fever ongoing for 3 days, in the ER CT scan of the abdomen suggest of a emphysematous cystitis through air in the bladder, as well as left pyelonephritis, with a stent in the left ureter, no hydronephrosis but ureteral stones. Blood cultures and urine culture were sent, ID consult placed due to emphysematous pyelonephritis Patient is diabetic, his white count is 12, creatinine clearance 36, he does have a fever of 38.3 today. Interval changes 06/28/2022 Patient Vitals for the past 8 hrs: BP Temp Temp src Pulse Resp SpO2 Height Weight 06/28/22 1325 -- -- -- -- -- -- 6' 5 (1.956 m) -- 06/28/22 1258 (!) 143/82 97.5 F (36.4 C) Oral 85 -- 95 % -- -- 06/28/22 1002 -- 98.4 F (36.9 C) -- -- 18 -- -- (!) 337 lb 15.4 oz (153.3 kg) 06/28/22 0920 -- -- -- -- -- 94 % -- -- 06/28/22 0805 118/76 98.1 F (36.7 C) Oral 70 15 94 % -- -- 06/28 - afebrile, hemodynamically stable, no new worsening signs or symptoms. 06/21 LGF, Tmax 100.9. Pt currently on Zyvox and Zosyn. BC NGTD, Ucx neg. Still bladder pain - Carballo bloody Looks better and no fever 06/22 Afebrile, vitals stable. Pt carballo has bloody output. Pt states his bladder pain is worse compared to yesterday but denies dysuria today. 06/24 Afebrile, vitals stable. Pt on ceftriaxone. No pain supra pubic area - seen in HD and had a R IJ QMthis am placed 06/25 Afebrile. Pt on cefepime w/HD. Dialyzed 06/24, nephro rec dialysis again today. Pt had low mood today, but states that bladder pain has improved. Carballo was blood-tinged but less significantly than prior day. Summary of relevant labs: Labs: WBC 12.7 - 8 - 8.7 - 9.7 - 10.1 - 10.9 - 13.7 - 14.1 - 13.5 CRP 111.5 Micro: Blood culture X2 NGTD 06/20 Urine culture 06/20 strep <[id number] cfu/ml Imaging: CT abdomen and pelvis 06/20 Left ureteral stent in place, 3 mm distal left ureteral calculus, no left hydro- Perinephric and periureteral stranding on the left suggestive of infection, gas in the bladder concerning for emphysematous cystitis Nonobstructive bilateral renal calculi Chest x-ray negative CT head negative I have personally reviewed the past medical history, past surgical history, medications, social history, and family history, and I haveupdated the database accordingly. Allergies: Patient has no known allergies. Review of Systems: Review of Systems Constitutional: Negative for activity change, chills, diaphoresis and fever. HENT: Negative for congestion. Eyes: Negative for photophobia, pain, discharge and redness. Respiratory: Negative for apnea, cough and shortness of breath. Cardiovascular: Negative for chest pain. Gastrointestinal: Negative for abdominal distention and abdominal pain. Endocrine: Negative for cold intolerance and polyphagia. Genitourinary: Negative for dysuria and flank pain. Musculoskeletal: Negative for arthralgias. Skin: Negative for color change. Allergic/Immunologic: Negative for food allergies. Neurological: Negative for dizziness, tremors, syncope and headaches. Hematological: Negative for adenopathy. Psychiatric/Behavioral: Negative for agitation. Physical Examination : Physical Exam Constitutional: Appearance: Normal appearance. He is not ill-appearing, toxic-appearing or diaphoretic. HENT: Head: Normocephalic and atraumatic. Nose: Nose normal. No congestion or rhinorrhea. Mouth/Throat: Mouth: Mucous membranes are moist. Eyes: Pupils: Pupils are equal, round, and reactive to light. Cardiovascular: Rate and Rhythm: Normal rate and regular rhythm. Heart sounds: Normal heart sounds. No murmur heard. No friction rub. Pulmonary: Effort: Pulmonary effort is normal. No respiratory distress. Breath sounds: Normal breath sounds. No stridor. No wheezing or rhonchi. Abdominal: General: There is no distension. Palpations: Abdomen is soft. There is no mass. Tenderness: There is no abdominal tenderness. There is no guarding. Genitourinary: Comments: Carballo Musculoskeletal: General: No swelling, tenderness, deformity or signs of injury. Cervical back: Neck supple. No rigidity or tenderness. Skin: General: Skin is warm and dry. Coloration: Skin is not jaundiced. Findings: No bruising. Neurological: General: No focal deficit present. Mental Status: He is alert and oriented to person, place, and time. Psychiatric: Thought Content: Thought content normal. 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, neuropathy and CKD stage 3 Gout Hyperlipidemia Hypertension 2000 Major depressive disorder Morbid obesity (HCC) Neuropathy SHADE (obstructive sleep apnea) 2003 Peptic ulcer disease 2018 Duodenal Ulcer Past Surgical History: Past Surgical History: Procedure Laterality Date CHOLECYSTECTOMY 2011 CYSTOSCOPY Left 05/28/2022 CYSTOSCOPY, URETERAL STENT INSERTION, URETHRAL DILATION performed by Kevin Myles MD at [facility] OR HAND SURGERY Right 12/2021 Medications: gabapentin 300 mg Oral Daily insulin glargine 25 Units SubCUTAneous Nightly cefepime 2,000 mg IntraVENous Once per day on Tue brexpiprazole 2 mg Oral Daily senna 1 tablet Oral Nightly polyethylene glycol 17 g Oral Daily bisacodyl 10 mg Rectal Daily heparin (porcine) 5,000 Units SubCUTAneous 3 times per day allopurinol 100 mg Oral Daily atorvastatin 20 mg Oral Nightly budesonide-formoterol 2 puff Inhalation BID lamoTRIgine 200 mg Oral Daily mirtazapine 30 mg Oral Nightly pantoprazole 40 mg Oral QAM AC propranolol 20 mg Oral TID tamsulosin 0.4 mg Oral Daily venlafaxine 150 mg Oral Daily sodium chloride flush 5-40 mL IntraVENous 2 times per day insulin lispro 0-8 Units SubCUTAneous TID WC insulin lispro 0-4 Units SubCUTAneous Nightly Social History: Social History Socioeconomic History Marital status: Spouse name: Not on file Number of children: Not on file Years of education: Not on file Highest education level: Not on file Occupational History Not on file Tobacco Use Smoking status: Never Smokeless tobacco: Never Substance and Sexual Activity Alcohol use: Yes Comment: less than 6 beers annually Drug use: Not on file Sexual activity: Not on file Other Topics Concern Not on file Social History Narrative Unemployed Social Determinants of Health Financial Resource Strain: Not on file Food Insecurity: Not on file Transportation Needs: Not on file Physical Activity: Not on file Stress: Not on file Social Connections: Not on file Intimate Partner Violence: Not on file Housing Stability: Not on file Family History: Family History Problem Relation Age of Onset Heart Disease Mother pacer Cancer Sister 58 Kidney Medical Decision Making: I have independently reviewed/ordered the following labs: CBC with Differential: Recent Labs 06/27/22 0541 06/28/22 0927 WBC 14.1* 13.5* HGB 11.9* 11.7* HCT 34.5* 37.1* PLT 487* 301 LYMPHOPCT 19* -- MONOPCT 7 -- BMP: Recent Labs 06/26/22 0648 06/27/22 0541 06/28/22 0927 06/28/22 1017 NA 138 < > 136 136 K 3.6* < > 3.9 3.7 CL 100 < > 98 97* CO2 23 < > 24 24 BUN 31* < > 42* 42* CREATININE 3.79* < > 4.49* 4.44* MG 2.0 -- -- -- < > = values in this interval not displayed. Hepatic Function Panel: No results for input(s): PROT, LABALBU, BILIDIR, IBILI, BILITOT, ALKPHOS, ALT, AST in the last 72 hours. No results for input(s): RPR in the last 72 hours. No results for input(s): HIV in the last 72 hours. No results for input(s): BC in the last 72 hours. Lab Results Component Value Date/Time CREATININE 4.44 06/28/2022 10:17 AM GLUCOSE 184 06/28/2022 10:17 AM Detailed results: Thank you for allowing us to participate in the care of this patient.Please call with questions. This note is created with the assistance of a speech recognition program. While intending to generate adocument that actually reflects the content of the visit, the document can still have some errors including those of syntax and sound a like substitutions which may escape proof reading. It such instances, actual meaningcan be extrapolated by contextual diversion. Eldon Mcallister Office: Perfect serve / office [phone] I have discussed the care of the patient, including pertinent history and exam findings, with the resident. I have seen and examined the patient and the [place] elements of all parts of the encounter have been performed by me. I agree with the assessment, plan and orders as documented by the resident. Allegra Scherer, Infectious Diseases * Toshia Hammonds RD - 06/28/2022 1:40 PM EDT Nutrition Assessment Type and Reason for Visit: RD Nutrition Re-Screen/LOS Nutrition Recommendations/Plan: Continue current diet Monitor weight, labs and intake. Malnutrition Assessment: Malnutrition Status: No malnutrition Nutrition Assessment: Patient seen for LOS. Admittd for DAISY on CKD, PMH T2DM, major depressive disorder, generalized anxiety disorder. He reports his intake is variable, reports food is cold and often does not taste good.He reports he is doing his best to eat well. Per EHR, intake 51-75% on average. glucose 137-196. Meds include dulcolax, glycolax and senna. Last BM 06/23. Estimated Daily Nutrient Needs: Energy (kcal): 2700 kcal/day Weight Used for Energy Requirements: Current Protein (g): 170-180 gm Weight Used for Protein Requirements: [place] Fluid (ml/day): Per MD Method Used for Fluid Requirements: 1 ml/kcal Nutrition Related Findings: Labs/meds review. BM 06/23 Wound Type: None Current Nutrition Therapies: ADULT DIET; Regular; 5 carb choices (75 gm/meal); Low Potassium (Less than 3000 mg/day); Low Phosphorus (Less than 1000 mg) Anthropometric Measures: Height: 6' 5 (195.6 cm) Current Body Wt: 337 lb 15.4 oz (153.3 kg) BMI: 40.1 Nutrition Diagnosis: No nutrition diagnosis at this time related to as evidenced by Nutrition Interventions: Food and/or Nutrient Delivery: Continue Current Diet Nutrition Education/Counseling: No recommendation at this time Coordination of Nutrition Care: Continue to monitor while inpatient Plan of Care discussed with: Patient Goals: Goals: Meet at least 75% of estimated needs, prior to discharge Nutrition Monitoring and Evaluation: Food/Nutrient Intake Outcomes: Food and Nutrient Intake Physical Signs/Symptoms Outcomes: Biochemical Data, GI Status, Skin, Weight Discharge Planning: Too soon to determine Toshia Hammonds RD Contact: [phone] * Kari Mcbride RN - 06/28/2022 10:00 AM EDT Dialysis Time Out To be done by RN and tech or 2 RNs Staff Names Jax ARIZA and Ani [x] Identity of the patient using 2 patient identifiers [x] Consent for treatment [x] Equipment-proper machine and dialyzer [x] B-Hep B status [x] Orders- to include bath, blood flow, dialyzer, time and fluid removal [x] Access-Correct site and in working order [x] Time for patient to ask questions. * Sheyla Viveros MD - 06/28/2022 9:14 AM EDT Images from the original note were not included. [facility] Office: [phone] Chris Osman DO, Terrence Johns DO, Stefani Augustin DO, Jaspreet Mosley DO, Surekha Batista MD, Adrienne Means MD, Rosales Singh MD, Caitlyn Benz MD, Abdoul Camargo MD, Cathy Farooq MD, Chepe Cordova DO, Love Hess MD, eDja Guevara DO, April Girard MD, Arvin Maya MD, Jessica Osman DO, Shima Watson MD, Raphael Connor MD, Jerome Simon DO, Yoselyn Thakkar MD, Codi Self MD, Gilda Sousa MD, Sheyla Viveros MD, Vikki Adorno MD, Jarocho Real DO, Krishan Vogt MD, Radha William MD, Shaunna Freitas CNP, Prabha Hauser CNP, Shirlene Dacosta CNP, Favian Ji CNP, Yesenia Espino, TEJINDER, Ema Mason, KARINA, Calista Mendez, KARINA, Gunjan Ruiz CNP, Sharon Barry CNP, Sri Weiner CNP, Gillian Valles PA-C, Carleen Paiz, SARA, Catie Cheema, KARINA, Chelsea Kulkarni, HOUSE MOVING SUPERVISOR [facility] IN-PATIENT SERVICE [facility] Progress Note 06/28/2022 9:14 AM Name: Steven Walden Acct: [id number] Room: [facility]-01 Day: 8 Admit Date: 06/20/2022 1:58 AM PCP: Darion Randle MD Code Status: Full Code Subjective: C/C: Chief Complaint Patient presents with Fall Fever Flank Pain Interval History Status: Stable now No overnight events. Mentation at baseline. Better Getting hemodialysis today. Plan for tunneled catheter placement. Brief History: 62 year old male with ps tmedicla history of CKD stage III, Diabetes, HTN, HLD, Obesity, presents with left sided flank pain and fevers and chills for the past 3 days. Patient found to have emphasematus cystitis. Urology and ID following.. Patient was initially on Zyvox and Zosyn for UTI later switched to Rocephin.. Her kidney function continue to worsen and then plateaued. He was continued on bicarb drip. He started having mild uremic symptoms. Hemodialysis was initiated. He received hemodialysis sessions management nephrology. He became anxious and started on suicidal thoughts during stay. Psychiatry was consulted. Patient was much calmer the following day. He developed an episode of altered mentation which later improved with use of BiPAP. He continues to be stable around. Was evaluated by psychiatry as well. On hemodialysis sessions per nephrology. Review of Systems: Constitutional: negative for chills, fevers, sweats Respiratory: negative for cough, dyspnea on exertion, shortness of breath, wheezing Cardiovascular: negative for chest pain, chest pressure/discomfort, lower extremity edema, palpitations Gastrointestinal: negative for abdominal pain, constipation, diarrhea, nausea, vomiting Neurological: Has mild tremors. Negative for dizziness, headache Psychiatric-positive for anxiety.-better Medications: Allergies: No Known Allergies Current Meds: Scheduled Meds: gabapentin 300 mg Oral Daily insulin glargine 25 Units SubCUTAneous Nightly cefepime 2,000 mg IntraVENous Once per day on Tue brexpiprazole 2 mg Oral Daily senna 1 tablet Oral Nightly polyethylene glycol 17 g Oral Daily bisacodyl 10 mg Rectal Daily heparin (porcine) 5,000 Units SubCUTAneous 3 times per day allopurinol 100 mg Oral Daily atorvastatin 20 mg Oral Nightly budesonide-formoterol 2 puff Inhalation BID lamoTRIgine 200 mg Oral Daily mirtazapine 30 mg Oral Nightly pantoprazole 40 mg Oral QAM AC propranolol 20 mg Oral TID tamsulosin 0.4 mg Oral Daily venlafaxine 150 mg Oral Daily sodium chloride flush 5-40 mL IntraVENous 2 times per day insulin lispro 0-8 Units SubCUTAneous TID WC insulin lispro 0-4 Units SubCUTAneous Nightly Continuous Infusions: sodium chloride dextrose PRN Meds: ALPRAZolam, heparin (porcine), heparin (porcine), albuterol sulfate HFA, sodium chloride flush, sodium chloride, ondansetron OR ondansetron, acetaminophen OR acetaminophen, glucose,dextrose bolus OR dextrose bolus, glucagon (rDNA), dextrose, lidocaine, oxyCODONE Data: Past Medical History: has a past medical history of Anxiety, Chronic kidney disease, Congenital heart defect, Diabetes mellitus (HCC), Gout, Hyperlipidemia, Hypertension, Major depressive disorder, Morbid obesity (HCC), Neuropathy, SHADE (obstructive sleep apnea), and Peptic ulcer disease. Social History: reports that he has never smoked. He has never used smokeless tobacco. He reports current alcohol use. Family History: Family History Problem Relation Age of Onset Heart Disease Mother pacer Cancer Sister 58 Kidney Vitals: BP 118/76 Pulse 70 Temp 98.1 F (36.7 C) (Oral) Resp 15 Ht 6' 5 (1.956 m) Wt (!) 343 lb (155.6 kg) SpO2 94% BMI 40.67 kg/m Temp (24hrs), Av.1 F (36.7 C), Min:97.7 F (36.5 C), Max:98.4 F (36.9 C) Recent Labs 06/27/22 1211 06/27/22 1715 06/27/22 1948 06/28/22 0804 POCGLU 196* 171* 167* 137* I/O (24Hr): Intake/Output Summary (Last 24 hours) at 06/28/2022 0914 Last data filed at 06/28/2022 0400 Gross per 24 hour Intake 120 ml Output 1625 ml Net -1505 ml Labs: Hematology: Recent Labs 06/26/22 0648 06/27/22 0541 WBC 13.7* 14.1* RBC 3.93* 3.57* HGB 12.1* 11.9* HCT 37.5* 34.5* MCV 95.4 96.6 MCH 30.8 33.3 MCHC 32.3 34.5 RDW 13.3 14.1 PLT 299 487* MPV 10.0 11.9 Chemistry: Recent Labs 06/26/22 0648 06/27/22 0541 NA 138 140 K 3.6* 3.7 CL 100 100 CO2 23 25 GLUCOSE 130* 120* BUN 31* 35* CREATININE 3.79* 4.39* MG 2.0 -- ANIONGAP 15 15 LABGLOM 17* 15* CALCIUM 9.0 9.2 Recent Labs 06/26/22 2039 06/27/22 0831 06/27/22 1211 06/27/22 1715 06/27/22 1948 06/28/22 0804 POCGLU 158* 117* 196* 171* 167* 137* ABG: Lab Results Component Value Date/Time POCPH 7.423 06/26/2022 01:49 PM POCPCO2 42.6 06/26/2022 01:49 PM POCPO2 78.7 06/26/2022 01:49 PM POCHCO3 27.8 06/26/2022 01:49 PM PBEA 3 06/26/2022 01:49 PM EAKV7OUC 96 06/26/2022 01:49 PM FIO2 30.0 06/26/2022 01:49 PM Lab Results Component Value Date/Time SPECIAL RAC 10ML 06/20/2022 03:51 AM Lab Results Component Value Date/Time CULTURE 06/20/2022 08:28 AM NO SIGNIFICANT GROWTH Identified as : VIRIDANS STREPTOCOCCUS GROUP <[id number] CFU/ML Radiology: CT ABDOMEN PELVIS WO CONTRAST Additional Contrast? None Result Date: 06/20/2022 1. Left ureteral stent in place with a 3 mm distal left ureteral calculus. No significant left hydronephrosis however there is perinephric and periureteral stranding suggestive of superimposed infection/inflammation. 2. 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 3. Nonobstructing bilateral renal calculi. CT HEAD WO CONTRAST Result Date: 06/20/2022 No acute intracranial abnormality. XR CHEST PORTABLE Result Date: 06/20/2022 No acute cardiopulmonary findings. Physical Examination: General appearance: alert, cooperative and no distress Mental Status: oriented to person, place and time and normal affect Lungs: clear to auscultation bilaterally, normal effort Heart: regular rate and rhythm, no murmur Abdomen: soft, nontender, nondistended, normal bowel sounds, no masses, hepatomegaly, splenomegaly Extremities: no edema, redness, tenderness in the calves Skin: no gross lesions, rashes, induration Neuro- positive for mild tremors. Psychiatry-positive for anxiety-better Assessment: Hospital Problems Last Modified POA * (Principal) DAISY (acute kidney injury) ([facility]) 06/20/2022 Yes Acute kidney injury superimposed on CKD ([facility]) 06/20/2022 Yes Chronic kidney disease 06/20/2022 Yes Type 2 diabetes mellitus with stage 3a chronic kidney disease ([facility]) 06/20/2022 Yes Hyperlipidemia 06/20/2022 Yes Primary hypertension 06/20/2022 Yes Left ureteral stone 06/20/2022 Yes BRITTANY (generalized anxiety disorder) 06/20/2022 Yes Major depressive disorder, recurrent, moderate ([facility]) 06/20/2022 Yes Bandemia 06/20/2022 Yes Pyelonephritis of left kidney 06/20/2022 Yes 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 Non oliguric secondary to ATN(complicated UTI)-received 2 session of hemodialysis so far. On hemodialysis sessions per nephrology. Plan to get tunneled catheter today. 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 Appreciate ID recommendations. Depression anxiety-much better. Appreciate psychiatry recommendations. Nephrolithiasis status post stent placement 05/28/2022- Plans for lithotripsy 06/29/2022 after activeinfection is resolved. Appreciate urology recommendations. Episode of sinus tachycardia-likely from electrolyte abnormalities. Evaluated by cardiology. Continue to monitor. Obstructive sleep apnea-uses CPAP at night. Morbid obesity-lifestyle changes Type 2 diabetes-insulin sliding scale. Hypoglycemia protocol. POCT glucose checks. Tremors-on propanolol. Outpatient neurology follow-up. DVT prophylaxis-subcu heparin GI prophylaxis-on Protonix Discharge planning-was evaluated by acute rehab who recommended that patient would benefit from acute inpatient rehab when medically clear. Sheyla Viveros MD 06/28/2022 9:14 AM * Meseret Ballard MD - 06/28/2022 8:49 AM EDT Nephrology Progress Note SUBJECTIVE Patient was seen at dialysis and chart reviewed. No acute events overnight. Patient remained afebrile and hemodynamically stable. Psychiatry evaluated the patient yesterday due to severe anxiety and intermittent suicidal ideation. Psychiatry recommended to continue current medication that includes Klonopin. Patient was not deemed a candidate for inpatient psychiatric care at present time and recommended outpatient follow-up and therapy upon discharge. Patient received 2 sessions of dialysis. He is doing well today. Denies any complains. Urology planning for left URS with Dr. Sheikh possibly tomorrow. Labs reviewed: BMP pending this am, WBC 14.1<<13.7; Hgb 11.9, Plt 487. HPI: 62-year-old male with a PMH significant of type II DM, diagnosed 15 years ago with vision compromise (no diagnosis of retinopathy), A1c has been fluctuating between 7 and 11 according to his family, CKD stage III, used to follow up at [facility] nephrology, has not seen retort loader in the last 6 years, with unknown baseline creatinine, chronic lower extremity edema, morbid obesity (BMI 41.5),essential hypertension, remote history of nephrolithiasis. He presented with fever, chills and left-sided flank pain days prior to presentation on 06/20/2022. Patient also had apparently a fall at home. Patient was recently admitted in May for an obstructing stone and solitary working kidney, urology had placed stent and Carballo was placed with intraoperative dilation. Patient now has gross hematuria. Patient was supposed to follow-up in 2 weeks with urology for definitive stone treatment however patient did not follow-up. Patient was found to have emphysematous cystitis. Patient was taking Farxiga on discharge. OBJECTIVE CURRENT TEMPERATURE: Temp: 98.1 F (36.7 C) MAXIMUM TEMPERATURE OVER 24HRS: Temp (24hrs), Av.1 F (36.7 C), Min:97.7 F (36.5 C), Max:98.4 F (36.9 C) CURRENT RESPIRATORY RATE: Resp: 15 CURRENT PULSE: Heart Rate: 70 CURRENT BLOOD PRESSURE: BP: 118/76 24HR BLOOD PRESSURE RANGE: Systolic (24hrs), Av , Min:118 , Max:150 ; Diastolic (24hrs), Av, Min:76, Max:87 24HR INTAKE/OUTPUT: Intake/Output Summary (Last 24 hours) at 06/28/2022 0850 Last data filed at 06/28/2022 0400 Gross per 24 hour Intake 120 ml Output 1625 ml Net -1505 ml PHYSICAL EXAM General: AAO x 3, HEENT: Atraumatic, normocephalic. Eyes: Normal conjunctiva, no icterus Neck: No JVD, no accessory muscle use, midline trachea Chest: Good bilateral air entry and clear to auscultation bilaterally and symmetrically with no wheezes or rales or rhonchi Cardiac: S1 S2 audible. No S3. Abdomen: Obese and soft and not tender not distended with active bowel sounds : No suprapubic or flank tenderness. Carballo in place with blood-tinged urine Neuro: AAO x 3, No FND. No asterixis or clonus SKIN: No rashes, good skin turgor. Extremities: Mild peripheral edema, no cyanosis CURRENT MEDICATIONS gabapentin (NEURONTIN) capsule 300 mg, Daily insulin glargine (LANTUS) injection vial 25 Units, Nightly ALPRAZolam (XANAX) tablet 0.5 mg, BID PRN cefepime (MAXIPIME) 2,000 mg in sterile water 20 mL IV syringe, Once per day on Tue heparin (porcine) injection 1,100 Units, PRN heparin (porcine) injection 1,400 Units, PRN brexpiprazole (REXULTI) tablet 2 mg, Daily senna (SENOKOT) tablet 8.6 mg, Nightly polyethylene glycol (GLYCOLAX) packet 17 g, Daily bisacodyl (DULCOLAX) suppository 10 mg, Daily heparin (porcine) injection 5,000 Units, 3 times per day albuterol sulfate HFA (PROVENTIL;VENTOLIN;PROAIR) 108 (90 Base) MCG/ACT inhaler 2 puff, Q6H PRN allopurinol (ZYLOPRIM) tablet 100 mg, Daily atorvastatin (LIPITOR) tablet 20 mg, Nightly budesonide-formoterol (SYMBICORT) 80-4.5 MCG/ACT inhaler 2 puff, BID lamoTRIgine (LAMICTAL) tablet 200 mg, Daily mirtazapine (REMERON) tablet 30 mg, Nightly pantoprazole (PROTONIX) tablet 40 mg, QAM AC propranolol (INDERAL) tablet 20 mg, TID tamsulosin (FLOMAX) capsule 0.4 mg, Daily venlafaxine (EFFEXOR XR) extended release capsule 150 mg, Daily sodium chloride flush 0.9 % injection 5-40 mL, 2 times per day sodium chloride flush 0.9 % injection 5-40 mL, PRN 0.9 % sodium chloride infusion, PRN ondansetron (ZOFRAN-ODT) disintegrating tablet 4 mg, Q8H PRN Or ondansetron (ZOFRAN) injection 4 mg, Q6H PRN acetaminophen (TYLENOL) tablet 650 mg, Q6H PRN Or acetaminophen (TYLENOL) suppository 650 mg, Q6H PRN insulin lispro (HUMALOG) injection vial 0-8 Units, TID WC insulin lispro (HUMALOG) injection vial 0-4 Units, Nightly glucose chewable tablet 16 g, PRN dextrose bolus 10% 125 mL, PRN Or dextrose bolus 10% 250 mL, PRN glucagon (rDNA) injection 1 mg, PRN dextrose 10 % infusion, Continuous PRN lidocaine (XYLOCAINE) 2 % uro-jet, PRN oxyCODONE (ROXICODONE) immediate release tablet 5 mg, Q4H PRN LABS CBC: Recent Labs 06/26/22 0648 06/27/22 0541 WBC 13.7* 14.1* RBC 3.93* 3.57* HGB 12.1* 11.9* HCT 37.5* 34.5* MCV 95.4 96.6 MCH 30.8 33.3 MCHC 32.3 34.5 RDW 13.3 14.1 PLT 299 487* MPV 10.0 11.9 BMP: Recent Labs 06/26/22 0648 06/27/22 0541 NA 138 140 K 3.6* 3.7 CL 100 100 CO2 23 25 BUN 31* 35* CREATININE 3.79* 4.39* GLUCOSE 130* 120* CALCIUM 9.0 9.2 BNP:No results found for: BNP PHOSPHORUS: No results for input(s): PHOS in the last 72 hours. MAGNESIUM: Recent Labs 06/26/22 0648 MG 2.0 ALBUMIN: No results for input(s): LABALBU in the last 72 hours. IRON: No results found for: IRON IRON SATURATION: No results found for: LABIRON TIBC: No results found for: TIBC FERRITIN: No results found for: FERRITIN AMY: No results found for: AMY SPEP: Lab Results Component Value Date/Time PROT 7.8 06/20/2022 03:31 AM ALBCAL 3.4 05/28/2022 08:45 PM ALBPCT 51 05/28/2022 08:45 PM LABALPH 0.3 05/28/2022 08:45 PM LABALPH 1.1 05/28/2022 08:45 PM A1PCT 4 05/28/2022 08:45 PM A2PCT 16 05/28/2022 08:45 PM LABBETA 0.9 05/28/2022 08:45 PM BETAPCT 14 05/28/2022 08:45 PM GAMGLOB 1.0 05/28/2022 08:45 PM GGPCT 15 05/28/2022 08:45 PM PATH ELECTRONICALLY SIGNED. KUSUM VILLAFANA M.D. 06/21/2022 09:35 PM UPEP: Lab Results Component Value Date/Time TPU 187 06/21/2022 09:35 PM TPU 187 06/21/2022 09:35 PM HEPBSAG: Lab Results Component Value Date/Time HEPBSAG NONREACTIVE 06/21/2022 02:32 PM HEPCAB: Lab Results Component Value Date/Time HEPCAB NONREACTIVE 06/21/2022 02:32 PM C3: Lab Results Component Value Date C3 167 06/21/2022 C4: Lab Results Component Value Date C4 58 (H) 06/21/2022 MPO ANCA: No results found for: MPO . PR3 ANCA: No results found for: PR3 URINE SODIUM: Lab Results Component Value Date/Time KYLAH 41 06/21/2022 09:35 PM URINE POTASSIUM: Lab Results Component Value Date/Time KUR 19.1 06/21/2022 09:35 PM URINE CHLORIDE: No results found for: CLU URINE PH: No components found for: PO4U URINE OSMOLARITY: Lab Results Component Value Date/Time OSMOU 361 06/21/2022 09:35 PM URINE CREATININE: Lab Results Component Value Date/Time LABCREA 99.0 06/21/2022 09:35 PM URINE EOSINOPHILS: No components found for: EOSU URINE PROTEIN: Lab Results Component Value Date/Time TPU 187 06/21/2022 09:35 PM TPU 187 06/21/2022 09:35 PM URINALYSIS: U/A: Lab Results Component Value Date/Time NITRU NEGATIVE 06/20/2022 08:30 AM COLORU [place] 06/20/2022 08:30 AM PHUR 5.5 06/20/2022 08:30 AM WBCUA 5 TO 10 06/20/2022 08:30 AM RBCUA TOO NUMEROUS TO COUNT 06/20/2022 08:30 AM BACTERIA FEW 06/20/2022 08:30 AM SPECGRAV 1.010 06/20/2022 08:30 AM LEUKOCYTESUR SMALL 06/20/2022 08:30 AM UROBILINOGEN Normal 06/20/2022 08:30 AM BILIRUBINUR NEGATIVE 06/20/2022 08:30 AM GLUCOSEU NEGATIVE 06/20/2022 08:30 AM KETUA NEGATIVE 06/20/2022 08:30 AM ANTIGBM:No results found for: GBMABIGG RADIOLOGY Reviewed as available. ASSESSMENT 1. Acute Kidney Injury: Nonoliguric secondary to ATIN (complicated UTI) - dialysis dependent nonoliguric urine output with blood-tinged urine (hematuria improved) and Carballo in place. 2. High anion gap metabolic acidosis secondary to acute kidney injury-resolved 3. Hyponatremia -combination of appropriate (volume depletion) and inappropriate (infection) ADH excess- resolved 4. Chronic kidney disease stage IIIb secondary to diabetic nephrosclerosis with baseline creatininelikely 2.1-2.3 5. 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 History of left hydronephrosis recently with urological surgical intervention and stent placement last month 7. Type II DM has been on Farxiga at home 8. Complicated UTI/pyelonephritis post stent placement PLAN HD today. Orders reviewed. Received 2 sessions of HD on 06/24 and 06/25. Patient tolerated treatment well so far. Patient will get tunneled catheter today and non-tunneled will be removed. Continue antibiotics as per GFR<15. Avoid nephrotoxin. Continue on renal diet. We will follow. Monitor daily BMP. Please do not hesitate to call with questions. Angel Frazier MD, MPH, PGY-2 Internal Medicine Resident [facility], [place], [place] Attending Physician Statement I have discussed the care of Steven Walden, including pertinent history and exam findings with the resident/fellow. I have reviewed the [place] elements of all parts of the encounter with the resident/fellow. I have seen and examined the patient with the resident/fellow. I agree with the assessment and plan and status of the problem list as documented. Addiitionally I recommend with the patient having anonfunctional temporary dialysis catheter noted today when trying to start him on dialysis, we willorder a tunneled hemodialysis catheter for dialysis access for his acute kidney injury. Urine output is reasonable. Very mild swelling of the extremities. No chest pain or significant shortness of ethan ath. He is on room air. No nausea or vomiting. We will perform his dialysis tomorrow and cancel today's treatment. He is scheduled for tunneled hemodialysis catheter later this afternoon. Meseret Ballard MD Nephrology Attending Physician [facility] 06/28/2022 * Emiliano Leavitt MD - 06/28/2022 7:31 AM EDT Images from the original note were not included. Kevin Myles MD [facility] Urology Progress Note Subjective: S/p left ureteral stent in a solitary kidney Currently on cefepime per ID recs for streptococcus positive urine Cx Feeling better Denies fever, chills, nausea and vomiting UOP 1625 cc Patient Vitals for the past 24 hrs: BP Temp Temp src Pulse Resp SpO2 Weight 06/28/22 0507 -- -- -- -- -- -- (!) 343 lb (155.6 kg) 06/28/22 0339 -- -- -- -- 18 -- -- 06/28/22 0012 -- -- -- -- 15 -- -- 06/27/22 194 (!) 150/87 98.4 F (36.9 C) Oral 73 17 98 % -- 06/27/22 1213 123/77 97.7 F (36.5 C) Oral 70 18 94 % -- 06/27/22 0908 -- -- -- 74 14 96 % -- 06/27/22 0825 129/78 97.9 F (36.6 C) Oral 75 14 94 % -- Intake/Output Summary (Last 24 hours) at 06/28/2022 0731 Last data filed at 06/28/2022 0400 Gross per 24 hour Intake 120 ml Output 1625 ml Net -1505 ml Recent Labs 06/26/22 0648 06/27/22 0541 WBC 13.7* 14.1* HGB 12.1* 11.9* HCT 37.5* 34.5* MCV 95.4 96.6 PLT 299 487* Recent Labs 06/26/22 0648 06/27/22 0541 NA 138 140 K 3.6* 3.7 CL 100 100 CO2 23 25 BUN 31* 35* CREATININE 3.79* 4.39* No results for input(s): COLORU, PHUR, LABCAST, WBCUA, RBCUA, MUCUS, TRICHOMONAS, YEAST, BACTERIA, CLARITYU, SPECGRAV, LEUKOCYTESUR, UROBILINOGEN, BILIRUBINUR, BLOODU in the last 72 hours. Invalid input(s): NITRATE, GLUCOSEUKETONESUAMORPHOUS Additional Lab/culture results: Physical Exam: AO x 3 Neck supple Chest: NLB Circulatory: peripheries warm and well perfused Abdomen: soft Interval Imaging Findings: none Impression: Patient Active Problem List Diagnosis DAISY (acute kidney injury) (HCC) Acute kidney injury superimposed on CKD (HCC) Chronic kidney disease Type 2 diabetes mellitus with stage 3a chronic kidney disease (HCC) Hyperlipidemia Primary hypertension Urinary tract obstruction by kidney stone Hydronephrosis of left kidney Atrophy of right kidney Left ureteral stone Debility BRITTANY (generalized anxiety disorder) Major depressive disorder, recurrent, moderate ([facility]) Tremor Bandemia Pyelonephritis of left kidney Emphysematous cystitis Hyponatremia Plan: Maintain carballo catheter as needed for I/O monitoring Most recent urine Cx from 06/20 - NG Continue cefepime per ID recs However his WBC is going up 14.1 (12) from yesterday, am labs pending . He is scheduled for left URS with Dr. Myles tomorrow. Will heck if he is ok with URS or just do stent exchange for now. Emiliano Leavitt MD 7:31 AM 06/28/2022 * Ace Hanson MD - 06/27/2022 2:30 PM EDT Nephrology Progress Note SUBJECTIVE Patient was seen at bedside. Ate better today for lunch, no vomiting food still takes strange, lessanxious on klonocordelia, family at bedside. Urine in Carballo does not appear to have gross hematuria at this point. Denies CP/SOB U/o picking up 2000cc's past 24 hours. Na 140 K 3.7 CO225 BUN 35 Cr 4.39 fei 9.2, glucose 120 HPI: 62-year-old male with a PMH significant of type II DM, diagnosed 15 years ago with vision compromise (no diagnosis of retinopathy), A1c has been fluctuating between 7 and 11 according to his family, CKD stage III, used to follow up at [facility] nephrology, has not seen retort loader in the last 6 years, with unknown baseline creatinine, chronic lower extremity edema, morbid obesity (BMI 41.5),essential hypertension, remote history of nephrolithiasis. He presented with fever, chills and left-sided flank pain days prior to presentation on 06/20/2022. Patient also had apparently a fall at home. Patient was recently admitted in May for an obstructing stone and solitary working kidney, urology had placed stent and Carballo was placed with intraoperative dilation. Patient now has gross hematuria. Patient was supposed to follow-up in 2 weeks with urology for definitive stone treatment however patient did not follow-up. Patient was found to have emphysematous cystitis. Patient was taking Farxiga on discharge. OBJECTIVE CURRENT TEMPERATURE: Temp: 97.7 F (36.5 C) MAXIMUM TEMPERATURE OVER 24HRS: Temp (24hrs), Av.9 F (36.6 C), Min:97.7 F (36.5 C), Max:98 F (36.7 C) CURRENT RESPIRATORY RATE: Resp: 18 CURRENT PULSE: Heart Rate: 70 CURRENT BLOOD PRESSURE: BP: 123/77 24HR BLOOD PRESSURE RANGE: Systolic (24hrs), Av , Min:123 , Max:144 ; Diastolic (24hrs), Av, Min:77, Max:80 24HR INTAKE/OUTPUT: Intake/Output Summary (Last 24 hours) at 06/27/2022 1430 Last data filed at 06/27/2022 0400 Gross per 24 hour Intake -- Output 2000 ml Net -2000 ml PHYSICAL EXAM General: AAO x 3, HEENT: Atraumatic, normocephalic. Eyes: Normal conjunctiva, no icterus Neck: No JVD, no accessory muscle use, midline trachea Chest: Good bilateral air entry and clear to auscultation bilaterally and symmetrically with no wheezes or rales or rhonchi Cardiac: S1 S2 audible. No S3. Abdomen: Obese and soft and not tender not distended with active bowel sounds : No suprapubic or flank tenderness. Carballo in place with blood-tinged urine Neuro: AAO x 3, No FND. No asterixis or clonus SKIN: No rashes, good skin turgor. Extremities: Mild peripheral edema, no cyanosis CURRENT MEDICATIONS gabapentin (NEURONTIN) capsule 300 mg, Daily insulin glargine (LANTUS) injection vial 25 Units, Nightly ALPRAZolam (XANAX) tablet 0.5 mg, BID PRN cefepime (MAXIPIME) 2,000 mg in sterile water 20 mL IV syringe, Once per day on Tue heparin (porcine) injection 1,100 Units, PRN heparin (porcine) injection 1,400 Units, PRN brexpiprazole (REXULTI) tablet 2 mg, Daily senna (SENOKOT) tablet 8.6 mg, Nightly polyethylene glycol (GLYCOLAX) packet 17 g, Daily bisacodyl (DULCOLAX) suppository 10 mg, Daily heparin (porcine) injection 5,000 Units, 3 times per day albuterol sulfate HFA (PROVENTIL;VENTOLIN;PROAIR) 108 (90 Base) MCG/ACT inhaler 2 puff, Q6H PRN allopurinol (ZYLOPRIM) tablet 100 mg, Daily atorvastatin (LIPITOR) tablet 20 mg, Nightly budesonide-formoterol (SYMBICORT) 80-4.5 MCG/ACT inhaler 2 puff, BID lamoTRIgine (LAMICTAL) tablet 200 mg, Daily mirtazapine (REMERON) tablet 30 mg, Nightly pantoprazole (PROTONIX) tablet 40 mg, QAM AC propranolol (INDERAL) tablet 20 mg, TID tamsulosin (FLOMAX) capsule 0.4 mg, Daily venlafaxine (EFFEXOR XR) extended release capsule 150 mg, Daily sodium chloride flush 0.9 % injection 5-40 mL, 2 times per day sodium chloride flush 0.9 % injection 5-40 mL, PRN 0.9 % sodium chloride infusion, PRN ondansetron (ZOFRAN-ODT) disintegrating tablet 4 mg, Q8H PRN Or ondansetron (ZOFRAN) injection 4 mg, Q6H PRN acetaminophen (TYLENOL) tablet 650 mg, Q6H PRN Or acetaminophen (TYLENOL) suppository 650 mg, Q6H PRN insulin lispro (HUMALOG) injection vial 0-8 Units, TID WC insulin lispro (HUMALOG) injection vial 0-4 Units, Nightly glucose chewable tablet 16 g, PRN dextrose bolus 10% 125 mL, PRN Or dextrose bolus 10% 250 mL, PRN glucagon (rDNA) injection 1 mg, PRN dextrose 10 % infusion, Continuous PRN lidocaine (XYLOCAINE) 2 % uro-jet, PRN oxyCODONE (ROXICODONE) immediate release tablet 5 mg, Q4H PRN LABS CBC: Recent Labs 06/25/22 0630 06/26/22 0648 06/27/22 0541 WBC 10.9 13.7* 14.1* RBC 3.87* 3.93* 3.57* HGB 12.0* 12.1* 11.9* HCT 36.9* 37.5* 34.5* MCV 95.3 95.4 96.6 MCH 31.0 30.8 33.3 MCHC 32.5 32.3 34.5 RDW 13.6 13.3 14.1 PLT 283 299 487* MPV 10.0 10.0 11.9 BMP: Recent Labs 06/25/22 0630 06/26/22 0648 06/27/22 0541 NA 139 138 140 K 3.7 3.6* 3.7 CL 101 100 100 CO2 25 BUN 41* 31* 35* CREATININE 4.65* 3.79* 4.39* GLUCOSE 205* 130* 120* CALCIUM 8.9 9.0 9.2 BNP:No results found for: BNP PHOSPHORUS: No results for input(s): PHOS in the last 72 hours. MAGNESIUM: Recent Labs 06/25/22 0630 06/26/22 0648 MG 1.9 2.0 ALBUMIN: No results for input(s): LABALBU in the last 72 hours. IRON: No results found for: IRON IRON SATURATION: No results found for: LABIRON TIBC: No results found for: TIBC FERRITIN: No results found for: FERRITIN AMY: No results found for: AMY SPEP: Lab Results Component Value Date/Time PROT 7.8 06/20/2022 03:31 AM ALBCAL 3.4 05/28/2022 08:45 PM ALBPCT 51 05/28/2022 08:45 PM LABALPH 0.3 05/28/2022 08:45 PM LABALPH 1.1 05/28/2022 08:45 PM A1PCT 4 05/28/2022 08:45 PM A2PCT 16 05/28/2022 08:45 PM LABBETA 0.9 05/28/2022 08:45 PM BETAPCT 14 05/28/2022 08:45 PM GAMGLOB 1.0 05/28/2022 08:45 PM GGPCT 15 05/28/2022 08:45 PM PATH ELECTRONICALLY SIGNED. KUSUM VILLAFANA M.D. 06/21/2022 09:35 PM UPEP: Lab Results Component Value Date/Time TPU 187 06/21/2022 09:35 PM TPU 187 06/21/2022 09:35 PM HEPBSAG: Lab Results Component Value Date/Time HEPBSAG NONREACTIVE 06/21/2022 02:32 PM HEPCAB: Lab Results Component Value Date/Time HEPCAB NONREACTIVE 06/21/2022 02:32 PM C3: Lab Results Component Value Date C3 167 06/21/2022 C4: Lab Results Component Value Date C4 58 (H) 06/21/2022 MPO ANCA: No results found for: MPO . PR3 ANCA: No results found for: PR3 URINE SODIUM: Lab Results Component Value Date/Time KYLAH 41 06/21/2022 09:35 PM URINE POTASSIUM: Lab Results Component Value Date/Time KUR 19.1 06/21/2022 09:35 PM URINE CHLORIDE: No results found for: CLU URINE PH: No components found for: PO4U URINE OSMOLARITY: Lab Results Component Value Date/Time OSMOU 361 06/21/2022 09:35 PM URINE CREATININE: Lab Results Component Value Date/Time LABCREA 99.0 06/21/2022 09:35 PM URINE EOSINOPHILS: No components found for: EOSU URINE PROTEIN: Lab Results Component Value Date/Time TPU 187 06/21/2022 09:35 PM TPU 187 06/21/2022 09:35 PM URINALYSIS: U/A: Lab Results Component Value Date/Time NITRU NEGATIVE 06/20/2022 08:30 AM COLORU [place] 06/20/2022 08:30 AM PHUR 5.5 06/20/2022 08:30 AM WBCUA 5 TO 10 06/20/2022 08:30 AM RBCUA TOO NUMEROUS TO COUNT 06/20/2022 08:30 AM BACTERIA FEW 06/20/2022 08:30 AM SPECGRAV 1.010 06/20/2022 08:30 AM LEUKOCYTESUR SMALL 06/20/2022 08:30 AM UROBILINOGEN Normal 06/20/2022 08:30 AM BILIRUBINUR NEGATIVE 06/20/2022 08:30 AM GLUCOSEU NEGATIVE 06/20/2022 08:30 AM KETUA NEGATIVE 06/20/2022 08:30 AM ANTIGBM:No results found for: GBMABIGG RADIOLOGY Reviewed as available. ASSESSMENT 1. Acute Kidney Injury: Nonoliguric secondary to ATIN (complicated UTI) - dialysis dependent nonoliguric urine output with blood-tinged urine (hematuria improved) and Carballo in place. 2. High anion gap metabolic acidosis secondary to acute kidney injury-resolved 3. Hyponatremia -combination of appropriate (volume depletion) and inappropriate (infection) ADH excess- resolved 4. Chronic kidney disease stage IIIb secondary to diabetic nephrosclerosis with baseline creatininelikely 2.1-2.3 5. 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 History of left hydronephrosis recently with urological surgical intervention and stent placement last month 7. Type II DM has been on Farxiga at home 8. Complicated UTI/pyelonephritis post stent placement PLAN Received 2 sessions of HD on 06/24 and 06/25. Patient tolerated treatment well so far. No need for HDagain today, will continue daily assessment, but suspect he will need additional tx tomorrow. Continue antibiotics as per GFR<15. Avoid nephrotoxin. Continue on renal diet. We will follow. Monitor daily BMP. LISSET BAUTISTA APN 06/27/2022 2:30 PM [facility] Attending Physician Statement I have discussed the care of Steven Walden, including pertinent history and exam findings, with the HOUSE MOVING SUPERVISOR. I have reviewed the [place] elements of all parts of the encounter with the HOUSE MOVING SUPERVISOR. I agree with the assessment, plan and orders as documented. Ace Hanson MD MD, MRCP (), FACP 06/27/2022 3:45 PM [facility] * Carolina Marquez, STOCKKEEPER - 06/27/2022 10:43 AM EDT Physical Therapy Facility/Department: [address] ONC/MED SURG Physical Therapy Daily treatment note Name: Steven Walden : 1960 Date of Service: 06/27/2022 Discharge Recommendations: Further therapy recommended at discharge.The patient should be able to tolerate at least 3 hours of therapy per day over 5 days or 15 hours over 7 days. This patient may benefit from a Physical Medicine and Rehab consult. Patient would benefit from continued therapy after discharge PT Equipment Recommendations Equipment Needed: Yes (ambulates with cane at home, CTA at [facility]) Patient Diagnosis(es): The primary encounter diagnosis was Acute kidney injury superimposed on CKD (HCC). A diagnosis of Pyelonephritis was also pertinent to this visit. Past Medical History: has a past medical history of Anxiety, Chronic kidney disease, Congenital heart defect, Diabetes mellitus (HCC), Gout, Hyperlipidemia, Hypertension, Major depressive disorder, Morbid obesity (HCC), Neuropathy, SHADE (obstructive sleep apnea), and Peptic ulcer disease. Past Surgical History: has a past surgical history that includes Cholecystectomy (2010); Hand surgery (Right, 12/2021); and Cystoscopy (Left, 05/28/2022). Assessment Body Structures, Functions, Activity Limitations Requiring Skilled Therapeutic Intervention: Decreased functional mobility ;Decreased endurance;Increased pain;Decreased posture;Decreased balance;Decreased ROM;Decreased strength Assessment: Pt requiring SBA with increased cues and increased time to complete, to perform bed mobility at this time, pt ambulated 25 ft x2 with RW CGA, pt stated he needed to head back to room after 25 ft. Pt demonstrates generalized weakness and would be unable to perform stair negotiation at this time which is required at prior living arrangments. Recommending continued skilled physical therapy to address these deficits and maximize independence upon discharge. Therapy Prognosis: Good Decision Making: Medium Complexity Barriers to Learning: increased processing time, assisted with education Requires PT Follow-Up: Yes Activity Tolerance Activity Tolerance: Patient limited by endurance Activity Tolerance Comments: Pt stated after 25 ft he needed to turn around and head back to room Plan Physcial Therapy Plan General Plan: (5-6 x week) Current Treatment Recommendations: Strengthening, ROM, Balance training, Gait training, Therapeuticactivities, Patient/Caregiver education & training, Transfer training, Endurance training, Equipment evaluation, education, & procurement, Stair training, Functional mobility training Safety Devices Type of Devices: Left in chair, Nurse notified, Gait belt, Call light within reach, Heels elevated for pressure relief, Sitter present Restraints Restraints Initially in Place: No Restrictions Restrictions/Precautions Restrictions/Precautions: Fall Risk Required Braces or Orthoses?: No Position Activity Restriction Other position/activity restrictions: amb pt.; up w/assist Subjective General Chart Reviewed: Yes Patient assessed for rehabilitation services?: Yes Response To Previous Treatment: Patient with no complaints from previous session. Family / Caregiver Present: Yes ( and sitter) Follows Commands: Within Functional Limits General Comment Comments: Pt retired to recliner at chair side , chair alarm set Subjective Subjective: RN and pt in agreement for PT treatment Denied pain, Pt supine in bed upon PT arrival, pt stated feeling better, bedside very supportive, aggreable for ambulation and transfer to chair Cognition Orientation Overall Orientation Status: Within Functional Limits Orientation Level: Oriented to place;Oriented to situation;Disoriented to time;Oriented to person Cognition Overall Cognitive Status: Exceptions Arousal/Alertness: Delayed responses to stimuli Following Commands: Follows multistep commands with repitition;Follows multistep commands with increased time Attention Span: Attends with cues to redirect;Difficulty attending to directions Safety Judgement: Decreased awareness of need for safety Problem Solving: Decreased awareness of errors Insights: Decreased awareness of deficits Initiation: Requires cues for some Sequencing: Requires cues for some Cognition Comment: delayed responses at time Objective Bed mobility Supine to Sit: Stand by assistance (set up, increased time) Sit to Supine: Unable to assess Scooting: Stand by assistance Bed Mobility Comments: Increased time to complete; HOB raised, increased time, slow moving, sat EOBunassisted x 10 Transfers Sit to Stand: Contact guard assistance Stand to Sit: Contact guard assistance Bed to Chair: Contact guard assistance Comment: STS performed with use of RW, cues for correct UE hand placement for all transfers, fair return Ambulation Surface: Level tile Device: Rolling Walker Assistance: Contact guard assistance Quality of Gait: slow moving Gait Deviations: Slow Reyna;Decreased step length;Decreased step height Distance: 25 ft x2 Comments: Pt dragging feet, lowered head posture, CGA will cues to advance walker More Ambulation?: No Stairs/Curb Stairs?: No Balance Posture: Fair Sitting - Static: Good;- Sitting - Dynamic: Fair;+ Standing - Static: Fair Standing - Dynamic: Fair Comments: standing balance assesed with RW; pt able to sit EOB without assist Exercise Treatment: seated BLE ther ex ankle pumps, marches, LAQs x10, cues for sequencing and complete ROM Static Sitting Balance Exercises: EOB x 10 mins SBA once feet on floor Breathing Techniques: pursed lip breathing--constant verbal cues and visual cues/demonstration AM-PAC Score AM-PAC Inpatient Mobility Raw Score : 16 (06/27/221042) AM-PAC Inpatient T-Scale Score : 40.78 (06/27/221042) Mobility Inpatient CMS 0-100% Score: 54.16 (06/27/221042) Mobility Inpatient CMS G-Code Modifier : CK (06/27/221042) Goals Short Term Goals Time Frame for Short Term Goals: 14 Short Term Goal 1: Pt to perform bed mobility from flat surface CGA Short Term Goal 2: Pt to demonstrate functional transfers independently Short Term Goal 3: Ambulate 300ft w/ no AD independently Short Term Goal 4: Ascend/descend 8 stairs with bilateral rails to simulate home environment independently Patient Goals Patient Goals : To go home Education Patient Education Education Given To: Patient;Family Education Provided: Role of Therapy;Plan of Care;Home Exercise Program;Fall Prevention Strategies Education Provided Comments: increased encourgment, disctraction methods, relaxation tech Education Method: Demonstration;Verbal Barriers to Learning: Other (Comment) (slow processing/response time, assisted with education) Education Outcome: Verbalized understanding;Demonstrated understanding Therapy Time Individual Concurrent Group Co-treatment Time In 956 Time Out 1029 Minutes 32 Timed Code Treatment Minutes: 32 Minutes Carolina Marquez PTA * David Brooks MD - 06/27/2022 9:54 AM EDT Images from the original note were not included. 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 Stop date 07/06/22 - reconciled Office f/up in [address] Scherer for infection. Please call [phone] for appointment Infection Control Recommendations [place] Precautions Contact Isolation Antimicrobial Stewardship Recommendations Simplification of therapy Targeted therapy History of Present Illness: Initial history: Steven Walden is a 62 y.o.-year-old male presents with a left flank pain, dysuria, as well as fever ongoing for 3 days, in the ER CT scan of the abdomen suggest of a emphysematous cystitis through air in the bladder, as well as left pyelonephritis, with a stent in the left ureter, no hydronephrosis but ureteral stones. Blood cultures and urine culture were sent, ID consult placed due to emphysematous pyelonephritis Patient is diabetic, his white count is 12, creatinine clearance 36, he does have a fever of 38.3 today. Interval changes 06/27/2022 Patient Vitals for the past 8 hrs: BP Temp Temp src Pulse Resp SpO2 Weight 06/27/22 0908 -- -- -- 74 14 96 % -- 06/27/22 0825 129/78 97.9 F (36.6 C) Oral 75 14 94 % -- 06/27/22 0448 -- -- -- -- -- -- (!) 343 lb 14.7 oz (156 kg) 06/27/22 0324 -- -- -- 81 13 97 % -- 06/21 LGF, Tmax 100.9. Pt currently on Zyvox and Zosyn. BC NGTD, Ucx neg. Still bladder pain - Carballo bloody Looks better and no fever 06/22 Afebrile, vitals stable. Pt carballo has bloody output. Pt states his bladder pain is worse compared to yesterday but denies dysuria today. 06/24 Afebrile, vitals stable. Pt on ceftriaxone. No pain supra pubic area - seen in HD and had a R IJ QMthis am placed CURRENT EVALUATION : 06/27/2022 Afebrile VS stable Patient feels better No complaints No new issues per RN Medications reviewed: On Cefepime 2 g after each hemodialysis. Stop date 07/06/22 Office f/up in [address] Scherer for infection. Please call [phone] for appointment Evaluated by Psychiatry for recurrent moderate major depression generalized anxiety disorder. Summary of relevant labs: 06/27/2022 Labs: WBC 8.7 - 9.7 - 10.1-->14.1 Hb 11.9 Plat 487 BUN 36 Cr 4.39 CRP 111 Micro: Blood culture X2 06/20: No growth Urine culture 06/20 : Viridans strep Imaging: CT abdomen and pelvis 06/20 Left ureteral stent in place, 3 mm distal left ureteral calculus, no left hydro- Perinephric and periureteral stranding on the left suggestive of infection, gas in the bladder concerning for emphysematous cystitis Nonobstructive bilateral renal calculi Chest x-ray negative CT head negative I have personally reviewed the past medical history, past surgical history, medications, social history, and family history, and I haveupdated the database accordingly. Allergies: Patient has no known allergies. Review of Systems: Review of Systems Constitutional: Negative for activity change, chills and fever. HENT: Negative for congestion. Eyes: Negative for pain, discharge and redness. Respiratory: Negative for apnea and cough. Cardiovascular: Negative for chest pain. Gastrointestinal: Negative for abdominal distention and abdominal pain. Endocrine: Negative for cold intolerance. Genitourinary: Negative for dysuria and flank pain. Musculoskeletal: Negative for arthralgias. Skin: Negative for color change. Allergic/Immunologic: Negative for food allergies. Neurological: Negative for dizziness, tremors, syncope and headaches. Hematological: Negative for adenopathy. Psychiatric/Behavioral: Negative for agitation. Physical Examination : Physical Exam Constitutional: General: He is not in acute distress. Appearance: Normal appearance. He is not ill-appearing, toxic-appearing or diaphoretic. HENT: Head: Normocephalic and atraumatic. Nose: Nose normal. No congestion. Mouth/Throat: Mouth: Mucous membranes are moist. Eyes: Pupils: Pupils are equal, round, and reactive to light. Cardiovascular: Rate and Rhythm: Normal rate and regular rhythm. Heart sounds: Normal heart sounds. No murmur heard. Pulmonary: Effort: Pulmonary effort is normal. No respiratory distress. Breath sounds: Normal breath sounds. No stridor. No wheezing or rhonchi. Abdominal: General: There is no distension. Palpations: Abdomen is soft. Tenderness: There is no abdominal tenderness. There is no guarding. Genitourinary: Comments: Carballo Musculoskeletal: General: No swelling, tenderness, deformity or signs of injury. Cervical back: Neck supple. No rigidity or tenderness. Skin: General: Skin is warm and dry. Coloration: Skin is not jaundiced. Neurological: General: No focal deficit present. Mental Status: He is alert and oriented to person, place, and time. Psychiatric: Mood and Affect: Mood normal. Thought Content: Thought content normal. 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, neuropathy and CKD stage 3 Gout Hyperlipidemia Hypertension 2000 Major depressive disorder Morbid obesity (HCC) Neuropathy SHADE (obstructive sleep apnea) 2002 Peptic ulcer disease 2018 Duodenal Ulcer Past Surgical History: Past Surgical History: Procedure Laterality Date CHOLECYSTECTOMY 2011 CYSTOSCOPY Left 05/28/2022 CYSTOSCOPY, URETERAL STENT INSERTION, URETHRAL DILATION performed by Kevin Myles MD at [facility] OR HAND SURGERY Right 12/2021 Medications: gabapentin 300 mg Oral Daily insulin glargine 25 Units SubCUTAneous Nightly [Held by provider] clonazePAM 0.5 mg Oral Q12H cefepime 2,000 mg IntraVENous Once per day on Tue brexpiprazole 2 mg Oral Daily senna 1 tablet Oral Nightly polyethylene glycol 17 g Oral Daily bisacodyl 10 mg Rectal Daily heparin (porcine) 5,000 Units SubCUTAneous 3 times per day allopurinol 100 mg Oral Daily atorvastatin 20 mg Oral Nightly budesonide-formoterol 2 puff Inhalation BID lamoTRIgine 200 mg Oral Daily mirtazapine 30 mg Oral Nightly pantoprazole 40 mg Oral QAM AC propranolol 20 mg Oral TID tamsulosin 0.4 mg Oral Daily venlafaxine 150 mg Oral Daily sodium chloride flush 5-40 mL IntraVENous 2 times per day insulin lispro 0-8 Units SubCUTAneous TID WC insulin lispro 0-4 Units SubCUTAneous Nightly Social History: Social History Socioeconomic History Marital status: Spouse name: Not on file Number of children: Not on file Years of education: Not on file Highest education level: Not on file Occupational History Not on file Tobacco Use Smoking status: Never Smokeless tobacco: Never Substance and Sexual Activity Alcohol use: Yes Comment: less than 6 beers annually Drug use: Not on file Sexual activity: Not on file Other Topics Concern Not on file Social History Narrative Unemployed Social Determinants of Health Financial Resource Strain: Not on file Food Insecurity: Not on file Transportation Needs: Not on file Physical Activity: Not on file Stress: Not on file Social Connections: Not on file Intimate Partner Violence: Not on file Housing Stability: Not on file Family History: Family History Problem Relation Age of Onset Heart Disease Mother pacer Cancer Sister 58 Kidney Medical Decision Making: I have independently reviewed/ordered the following labs: CBC with Differential: Recent Labs 06/26/22 0648 06/27/22 0541 WBC 13.7* 14.1* HGB 12.1* 11.9* HCT 37.5* 34.5* PLT 299 487* LYMPHOPCT -- 19* MONOPCT -- 7 BMP: Recent Labs 06/25/22 0630 06/26/22 0648 06/27/22 0541 NA 139 138 140 K 3.7 3.6* 3.7 CL 101 100 100 CO2 23 23 25 BUN 41* 31* 35* CREATININE 4.65* 3.79* 4.39* MG 1.9 2.0 -- Hepatic Function Panel: No results for input(s): PROT, LABALBU, BILIDIR, IBILI, BILITOT, ALKPHOS, ALT, AST in the last 72 hours. No results for input(s): RPR in the last 72 hours. No results for input(s): HIV in the last 72 hours. No results for input(s): BC in the last 72 hours. Lab Results Component Value Date/Time CREATININE 4.39 06/27/2022 05:41 AM GLUCOSE 120 06/27/2022 05:41 AM Detailed results: Thank you for allowing us to participate in the care of this patient.Please call with questions. This note is created with the assistance of a speech recognition program. While intending to generate adocument that actually reflects the content of the visit, the document can still have some errors including those of syntax and sound a like substitutions which may escape proof reading. It such instances, actual meaningcan be extrapolated by contextual diversion. David Brooks MD Office: Perfect serve / office [phone] * Sheyla Viveros MD - 06/27/2022 7:58 AM EDT Images from the original note were not included. [facility] Office: [phone] Chris Osman DO, Terrence Johns DO, Stefani Augustin DO, Jaspreet Mosley DO, Surekha Batista MD, Adrienne Means MD, Rosales Singh MD, Caitlyn Benz MD, Abdoul Camargo MD, Cathy Farooq MD, Chepe Cordova DO, Love Hess MD, Deja Guevara DO, April Girard MD, Arvin Maya MD, Jessica Osman DO, Shima Watson MD, Raphael Connor MD, Jerome Simon DO, Yoselyn Thakkar MD, Codi Self MD, Gilda Sousa MD, Sheyla Viveros MD, Vikki Adorno MD, Jarocho Real DO, Krishan Vogt MD, Radha William MD, Shaunna Freitas, HOUSE MOVING SUPERVISOR, Prabha Hauser, HOUSE MOVING SUPERVISOR, Shirlene Dacosta, HOUSE MOVING SUPERVISOR, Favian Ji, HOUSE MOVING SUPERVISOR, Yesenia Espino DNP, Ema Mason, HOUSE MOVING SUPERVISOR, Calista Mendez, HOUSE MOVING SUPERVISOR, Gunjan Ruiz, HOUSE MOVING SUPERVISOR, Sharon Barry, HOUSE MOVING SUPERVISOR, Sri Weiner, HOUSE MOVING SUPERVISOR, MEGAN SosaC, Carleen Paiz, SOCIAL WORK FACULTY MEMBER, Catie Cheema, HOUSE MOVING SUPERVISOR, Chelsea Kulkarni, HOUSE MOVING SUPERVISOR [facility] IN-PATIENT SERVICE [facility] Progress Note 06/27/2022 7:58 AM Name: Steven Walden Acct: [id number] Room: [address] [place], [place] [address]-[facility] Day: 7 Admit Date: 06/20/2022 1:58 AM PCP: Darion Randle MD Code Status: Full Code Subjective: C/C: Chief Complaint Patient presents with Fall Fever Flank Pain Interval History Status: Stable now No overnight events. Mentation at baseline. Creatinine worse than before. Nephrology to decide on hemodialysis today. at bedside. Answered all concerns to patient's satisfaction. Brief History: 62 year old male with ps tmedicla history of CKD stage III, Diabetes, HTN, HLD, Obesity, presents with left sided flank pain and fevers and chills for the past 3 days. Patient found to have emphasematus cystitis. Urology and ID following.. Patient was initially on Zyvox and Zosyn for UTI later switched to Rocephin.. Her kidney function continue to worsen and then plateaued. He was continued on bicarb drip. He started having mild uremic symptoms. Hemodialysis was initiated. He received hemodialysis sessions management nephrology. He became anxious and started on suicidal thoughts during stay. Psychiatry was consulted. Patient was much calmer the following day. He developed an episode of altered mentation which later improved with use of BiPAP. Review of Systems: Constitutional: negative for chills, fevers, sweats Respiratory: negative for cough, dyspnea on exertion, shortness of breath, wheezing Cardiovascular: negative for chest pain, chest pressure/discomfort, lower extremity edema, palpitations Gastrointestinal: negative for abdominal pain, constipation, diarrhea, nausea, vomiting Neurological: Has mild tremors. Negative for dizziness, headache Psychiatric-positive for anxiety. Medications: Allergies: No Known Allergies Current Meds: Scheduled Meds: gabapentin 300 mg Oral Daily insulin glargine 25 Units SubCUTAneous Nightly [Held by provider] clonazePAM 0.5 mg Oral Q12H cefepime 2,000 mg IntraVENous Once per day on Tue brexpiprazole 2 mg Oral Daily senna 1 tablet Oral Nightly polyethylene glycol 17 g Oral Daily bisacodyl 10 mg Rectal Daily heparin (porcine) 5,000 Units SubCUTAneous 3 times per day allopurinol 100 mg Oral Daily atorvastatin 20 mg Oral Nightly budesonide-formoterol 2 puff Inhalation BID lamoTRIgine 200 mg Oral Daily mirtazapine 30 mg Oral Nightly pantoprazole 40 mg Oral QAM AC propranolol 20 mg Oral TID tamsulosin 0.4 mg Oral Daily venlafaxine 150 mg Oral Daily sodium chloride flush 5-40 mL IntraVENous 2 times per day insulin lispro 0-8 Units SubCUTAneous TID WC insulin lispro 0-4 Units SubCUTAneous Nightly Continuous Infusions: sodium chloride dextrose PRN Meds: ALPRAZolam, heparin (porcine), heparin (porcine), albuterol sulfate HFA, sodium chloride flush, sodium chloride, ondansetron OR ondansetron, acetaminophen OR acetaminophen, glucose,dextrose bolus OR dextrose bolus, glucagon (rDNA), dextrose, lidocaine, oxyCODONE Data: Past Medical History: has a past medical history of Anxiety, Chronic kidney disease, Congenital heart defect, Diabetes mellitus (HCC), Gout, Hyperlipidemia, Hypertension, Major depressive disorder, Morbid obesity (HCC), Neuropathy, SHADE (obstructive sleep apnea), and Peptic ulcer disease. Social History: reports that he has never smoked. He has never used smokeless tobacco. He reports current alcohol use. Family History: Family History Problem Relation Age of Onset Heart Disease Mother pacer Cancer Sister 58 Kidney Vitals: BP (!) 144/80 Pulse 81 Temp 98 F (36.7 C) (Oral) Resp 13 Ht 6' 5 (1.956 m) Wt (!) 343 lb14.7 oz (156 kg) SpO2 97% BMI 40.78 kg/m Temp (24hrs), Av F (36.7 C), Min:97.9 F (36.6 C), Max:98 F (36.7 C) Recent Labs 06/26/22 1145 06/26/22 1315 06/26/22 16506/26/222038 POCGLU 152* 134* 140* 158* I/O (24Hr): Intake/Output Summary (Last 24 hours) at 06/27/2022 0758 Last data filed at 06/27/2022 0400 Gross per 24 hour Intake -- Output 2000 ml Net -2000 ml Labs: Hematology: Recent Labs 06/25/22 0630 06/26/22 0648 WBC 10.9 13.7* RBC 3.87* 3.93* HGB 12.0* 12.1* HCT 36.9* 37.5* MCV 95.3 95.4 MCH 31.0 30.8 MCHC 32.5 32.3 RDW 13.6 13.3 PLT 283 299 MPV 10.0 10.0 Chemistry: Recent Labs 06/25/22 0630 06/26/22 0648 06/27/22 0541 NA 139 138 140 K 3.7 3.6* 3.7 CL 101 100 100 CO2 23 25 GLUCOSE 205* 130* 120* BUN 41* 31* 35* CREATININE 4.65* 3.79* 4.39* MG 1.9 2.0 -- ANIONGAP 15 15 15 LABGLOM 14* 17* 15* CALCIUM 8.9 9.0 9.2 Recent Labs 06/25/22 1936 06/26/22 0747 06/26/22 1145 06/26/22 1315 06/26/22 1652 06/26/222038 POCGLU 173* 122* 152* 134* 140* 158* ABG: Lab Results Component Value Date/Time POCPH 7.423 06/26/2022 01:49 PM POCPCO2 42.6 06/26/2022 01:49 PM POCPO2 78.7 06/26/2022 01:49 PM POCHCO3 27.8 06/26/2022 01:49 PM PBEA 3 06/26/2022 01:49 PM VRVC7ZIS 96 06/26/2022 01:49 PM FIO2 30.0 06/26/2022 01:49 PM Lab Results Component Value Date/Time SPECIAL RAC 10ML 06/20/2022 03:51 AM Lab Results Component Value Date/Time CULTURE 06/20/2022 08:28 AM NO SIGNIFICANT GROWTH Identified as : VIRIDANS STREPTOCOCCUS GROUP <[id number] CFU/ML Radiology: CT ABDOMEN PELVIS WO CONTRAST Additional Contrast? None Result Date: 06/20/2022 1. Left ureteral stent in place with a 3 mm distal left ureteral calculus. No significant left hydronephrosis however there is perinephric and periureteral stranding suggestive of superimposed infection/inflammation. 2. 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 3. Nonobstructing bilateral renal calculi. CT HEAD WO CONTRAST Result Date: 06/20/2022 No acute intracranial abnormality. XR CHEST PORTABLE Result Date: 06/20/2022 No acute cardiopulmonary findings. Physical Examination: General appearance: alert, cooperative and no distress Mental Status: oriented to person, place and time and normal affect Lungs: clear to auscultation bilaterally, normal effort Heart: regular rate and rhythm, no murmur Abdomen: soft, nontender, nondistended, normal bowel sounds, no masses, hepatomegaly, splenomegaly Extremities: no edema, redness, tenderness in the calves Skin: no gross lesions, rashes, induration Neuro- positive for mild tremors. Psychiatry-positive for anxiety Assessment: Hospital Problems Last Modified POA * (Principal) DAISY (acute kidney injury) ([facility]) 06/20/2022 Yes Acute kidney injury superimposed on CKD ([facility]) 06/20/2022 Yes Chronic kidney disease 06/20/2022 Yes Type 2 diabetes mellitus with stage 3a chronic kidney disease (HCC) 06/20/2022 Yes Hyperlipidemia 06/20/2022 Yes Primary hypertension 06/20/2022 Yes Left ureteral stone 06/20/2022 Yes BRITTANY (generalized anxiety disorder) 06/20/2022 Yes Major depressive disorder, recurrent, moderate (HCC) 06/20/2022 Yes Bandemia 06/20/2022 Yes Pyelonephritis of left kidney 06/20/2022 Yes 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 Non oliguric secondary to ATN(complicated UTI)-received 2 session of hemodialysis so far. Creatinine little worse than yesterday. No current signs of uremia. Nephrology to decideon hemodialysis. 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 Appreciate ID recommendations. Depression-was calm and comfortable today. Denied any suicidal thoughts today. Appreciate psychiatry recommendations. Nephrolithiasis status post stent placement 05/28/2022- Plans for lithotripsy 06/29/2022 after activeinfection is resolved. Appreciate urology recommendations. Episode of sinus tachycardia-likely from electrolyte abnormalities. Evaluated by cardiology. Continue to monitor. Obstructive sleep apnea-uses CPAP at night. Morbid obesity-lifestyle changes Type 2 diabetes-insulin sliding scale. Hypoglycemia protocol. POCT glucose checks. Tremors-on propanolol. Outpatient neurology follow-up. DVT prophylaxis-subcu heparin GI prophylaxis-on Protonix Discharge planning-was evaluated by acute rehab who recommended that patient would benefit from acute inpatient rehab when medically clear. Sheyla Viveros MD 06/27/2022 7:58 AM * Sheyla Viveros MD - 06/26/2022 2:05 PM EDT Called to update . No response. Could not leave a voicemail. Ll follow up. Sheyla Viveros MD * Sheyla Viveros MD - 06/26/2022 2:00 PM EDT Images from the original note were not included. [facility] Office: [phone] Chris Osman DO, Terrence Johns DO, Stefani Augustin, DO, Jaspreet Mosley, DO, Surekha Batista MD, Adrienne Means MD, Rosales Singh MD, Caitlyn Benz MD, Abdoul Camargo MD, Cathy Farooq MD, Chepe Cordova,DO, Love Hess MD, Deja Guevara, DO, April Girard MD, Arvin Maya MD, Jessica Osman, DO, Shima Watson MD, Raphael Connor MD, Jerome Simon DO, Yoselyn Thakkar MD, Codi Self MD, Gilda Sousa MD, Sheyla Viveros MD, Vikki Adorno MD, Jarocho Real, DO, Krishan Vogt MD, Radha William MD, Shaunna Freitas, HOUSE MOVING SUPERVISOR, Prabha Hauser, HOUSE MOVING SUPERVISOR, Shirlene Dacosta, HOUSE MOVING SUPERVISOR, Favian Ji, HOUSE MOVING SUPERVISOR, Yesenia Espino, TEJINDER, Ema Mason, HOUSE MOVING SUPERVISOR, Calista Mendez, HOUSE MOVING SUPERVISOR, Gunjan Ruiz, HOUSE MOVING SUPERVISOR, Sharon Barry, HOUSE MOVING SUPERVISOR, Sri Weiner, HOUSE MOVING SUPERVISOR, THANH Sosa-C, Carleen Paiz, SOCIAL WORK FACULTY MEMBER, Catie Cheema, HOUSE MOVING SUPERVISOR, Chelsea Kulkarni, HOUSE MOVING SUPERVISOR [facility] IN-PATIENT SERVICE [facility] Second Visit Note For more detailed information please refer to the progress note of the day 06/27/2022 8:00 AM Name: Steven Walden Acct: [id number] Room: 0438/0438-01 Day: 7 Admit Date: 06/20/2022 1:58 AM PCP: Darion Randle MD Code Status: Full Code Later afternoon received perfect serve that patient is very drowsy and is having abnormal movements. Patient seen and examined bedside. Patient was very drowsy and hardly waking up or answering any questions for me. He also had abnormal body movement/clonus. Did not have any hemodialysis session today. Elevated creatinine better than yesterday. Stat CT head, chest x-ray, ABG and labs ordered. Updated plan : Patient placed on BiPAP. Given a dose of Lasix. His Klonopin and Xanax held.. All work-up was negative. Discussed with nephrology as well since patient has been exhibiting signs of uremia. Patient might have underlying severe sleep apnea. Mentation improved in few hours after using BiPAP. Advised to use BiPAP as needed and during sleep. Limit use of benzos, medications or additional psych meds. Sheyla Viveros MD 06/27/2022 8:00 AM * Sailaja Schaefer RP - 06/26/2022 12:51 PM EDT Pharmacy Note Renal Dose Adjustment Steven Win is a 62 y.o. male. Pharmacist assessment of renally cleared medications. Recent Labs 06/25/22 0630 06/26/22 0648 BUN 41* 31* Recent Labs 06/25/22 0630 06/26/22 0648 CREATININE 4.65* 3.79* Estimated Creatinine Clearance: 34 mL/min (A) (based on SCr of 3.79 mg/dL (H)). Height: Ht Readings from Last 1 Encounters: 06/20/22 6' 5 (1.956 m) Weight: Wt Readings from Last 1 Encounters: 06/25/22 (!) 350 lb 15.6 oz (159.2 kg) The following medication dose has been adjusted based upon renal function per P&T Guidelines: Patient now on HD. No established schedule yet. Gabapentin 300 mg BID --> Gabapentin 300 mg daily; consider further adjustment if needed to align with dialysis schedule Sailaja Schaefer PharmD, BCCCP 06/26/2022 12:49 PM * Ace Hanson MD - 06/26/2022 8:08 AM EDT Nephrology Progress Note SUBJECTIVE Patient was seen at bedside and chart reviewed. No acute events overnight. Patient underwent second session of HD yesterday. 200 mL was removed. He tolerated the treatment well. Treatment ended 20 mins early to machine clotting. Patient is doing well this morning. Reported feeling better with anxiety. Still reports low appetite and food tasting metallic. Psychiatry was consulted yesterday due patient having severe anxiety. He was started on Klonopin. Uout: 600 mL/24 hours Labs reviewed: Na 138, K 3.6, bicarb 23, Cr 3.79<<4.65; BUN 31, Ca 9 WBC 13.7; Hgb 12.1; Plt 299 HPI: 62-year-old male with a PMH significant of type II DM, diagnosed 15 years ago with vision compromise (no diagnosis of retinopathy), A1c has been fluctuating between 7 and 11 according to his family, CKD stage III, used to follow up at [facility] nephrology, has not seen retort loader in the last 6 years, with unknown baseline creatinine, chronic lower extremity edema, morbid obesity (BMI 41.5),essential hypertension, remote history of nephrolithiasis. He presented with fever, chills and left-sided flank pain days prior to presentation on 06/20/2022. Patient also had apparently a fall at home. Patient was recently admitted in May for an obstructing stone and solitary working kidney, urology had placed stent and Carballo was placed with intraoperative dilation. Patient now has gross hematuria. Patient was supposed to follow-up in 2 weeks with urology for definitive stone treatment however patient did not follow-up. Patient was found to have emphysematous cystitis. Patient was taking Farxiga on discharge. OBJECTIVE CURRENT TEMPERATURE: Temp: 98.2 F (36.8 C) MAXIMUM TEMPERATURE OVER 24HRS: Temp (24hrs), Av F (36.7 C), Min:97.2 F (36.2 C), Max:98.5 F (36.9 C) CURRENT RESPIRATORY RATE: Resp: 18 CURRENT PULSE: Heart Rate: 70 CURRENT BLOOD PRESSURE: BP: (!) 138/91 24HR BLOOD PRESSURE RANGE: Systolic (24hrs), Av , Min:134 , Max:184 ; Diastolic (24hrs), Av, Min:80, Max:106 24HR INTAKE/OUTPUT: Intake/Output Summary (Last 24 hours) at 06/26/2022 0808 Last data filed at 06/26/2022 0000 Gross per 24 hour Intake 530 ml Output 1100 ml Net -570 ml PHYSICAL EXAM General: AAO x 3, HEENT: Atraumatic, normocephalic. Eyes: Normal conjunctiva, no icterus Neck: No JVD, no accessory muscle use, midline trachea Chest: Good bilateral air entry and clear to auscultation bilaterally and symmetrically with no wheezes or rales or rhonchi Cardiac: S1 S2 audible. No S3. Abdomen: Obese and soft and not tender not distended with active bowel sounds : No suprapubic or flank tenderness. Carballo in place with blood-tinged urine Neuro: AAO x 3, No FND. No asterixis or clonus SKIN: No rashes, good skin turgor. Extremities: Mild peripheral edema, no cyanosis CURRENT MEDICATIONS insulin glargine (LANTUS) injection vial 25 Units, Nightly ALPRAZolam (XANAX) tablet 0.5 mg, BID PRN clonazePAM (KLONOPIN) tablet 0.5 mg, Q12H gabapentin (NEURONTIN) capsule 300 mg, BID cefepime (MAXIPIME) 2,000 mg in sterile water 20 mL IV syringe, Once per day on Tue heparin (porcine) injection 1,100 Units, PRN heparin (porcine) injection 1,400 Units, PRN brexpiprazole (REXULTI) tablet 2 mg, Daily senna (SENOKOT) tablet 8.6 mg, Nightly polyethylene glycol (GLYCOLAX) packet 17 g, Daily bisacodyl (DULCOLAX) suppository 10 mg, Daily heparin (porcine) injection 5,000 Units, 3 times per day albuterol sulfate HFA (PROVENTIL;VENTOLIN;PROAIR) 108 (90 Base) MCG/ACT inhaler 2 puff, Q6H PRN allopurinol (ZYLOPRIM) tablet 100 mg, Daily atorvastatin (LIPITOR) tablet 20 mg, Nightly budesonide-formoterol (SYMBICORT) 80-4.5 MCG/ACT inhaler 2 puff, BID lamoTRIgine (LAMICTAL) tablet 200 mg, Daily mirtazapine (REMERON) tablet 30 mg, Nightly pantoprazole (PROTONIX) tablet 40 mg, QAM AC propranolol (INDERAL) tablet 20 mg, TID tamsulosin (FLOMAX) capsule 0.4 mg, Daily venlafaxine (EFFEXOR XR) extended release capsule 150 mg, Daily sodium chloride flush 0.9 % injection 5-40 mL, 2 times per day sodium chloride flush 0.9 % injection 5-40 mL, PRN 0.9 % sodium chloride infusion, PRN ondansetron (ZOFRAN-ODT) disintegrating tablet 4 mg, Q8H PRN Or ondansetron (ZOFRAN) injection 4 mg, Q6H PRN acetaminophen (TYLENOL) tablet 650 mg, Q6H PRN Or acetaminophen (TYLENOL) suppository 650 mg, Q6H PRN insulin lispro (HUMALOG) injection vial 0-8 Units, TID WC insulin lispro (HUMALOG) injection vial 0-4 Units, Nightly glucose chewable tablet 16 g, PRN dextrose bolus 10% 125 mL, PRN Or dextrose bolus 10% 250 mL, PRN glucagon (rDNA) injection 1 mg, PRN dextrose 10 % infusion, Continuous PRN lidocaine (XYLOCAINE) 2 % uro-jet, PRN oxyCODONE (ROXICODONE) immediate release tablet 5 mg, Q4H PRN LABS CBC: Recent Labs 06/24/2255306/25/2230 06/26/22 0648 WBC 10.1 10.9 13.7* RBC 3.77* 3.87* 3.93* HGB 11.9* 12.0* 12.1* HCT 35.9* 36.9* 37.5* MCV 95.2 95.3 95.4 MCH 31.6 31.0 30.8 MCHC 33.1 32.5 32.3 RDW 14.0 13.6 13.3 PLT 223 283 299 MPV 10.4 10.0 10.0 BMP: Recent Labs 06/24/22203006/25/2230 06/26/22 0648 NA 137 139 138 K 3.8 3.7 3.6* CL 99 101 100 CO2 BUN 39* 41* 31* CREATININE 4.24* 4.65* 3.79* GLUCOSE 191* 205* 130* CALCIUM 8.3* 8.9 9.0 BNP:No results found for: BNP PHOSPHORUS: No results for input(s): PHOS in the last 72 hours. MAGNESIUM: Recent Labs 06/24/2255306/25/2262906/26/22 0648 MG 1.8 1.9 2.0 ALBUMIN: No results for input(s): LABALBU in the last 72 hours. IRON: No results found for: IRON IRON SATURATION: No results found for: LABIRON TIBC: No results found for: TIBC FERRITIN: No results found for: FERRITIN AMY: No results found for: AMY SPEP: Lab Results Component Value Date/Time PROT 7.8 06/20/2022 03:31 AM ALBCAL 3.4 05/28/2022 08:45 PM ALBPCT 51 05/28/2022 08:45 PM LABALPH 0.3 05/28/2022 08:45 PM LABALPH 1.1 05/28/2022 08:45 PM A1PCT 4 05/28/2022 08:45 PM A2PCT 16 05/28/2022 08:45 PM LABBETA 0.9 05/28/2022 08:45 PM BETAPCT 14 05/28/2022 08:45 PM GAMGLOB 1.0 05/28/2022 08:45 PM GGPCT 15 05/28/2022 08:45 PM PATH ELECTRONICALLY SIGNED. KUSUM VILLAFANA M.D. 06/21/2022 09:35 PM UPEP: Lab Results Component Value Date/Time TPU 187 06/21/2022 09:35 PM TPU 187 06/21/2022 09:35 PM HEPBSAG: Lab Results Component Value Date/Time HEPBSAG NONREACTIVE 06/21/2022 02:32 PM HEPCAB: Lab Results Component Value Date/Time HEPCAB NONREACTIVE 06/21/2022 02:32 PM C3: Lab Results Component Value Date C3 167 06/21/2022 C4: Lab Results Component Value Date C4 58 (H) 06/21/2022 MPO ANCA: No results found for: MPO . PR3 ANCA: No results found for: PR3 URINE SODIUM: Lab Results Component Value Date/Time KYLAH 41 06/21/2022 09:35 PM URINE POTASSIUM: Lab Results Component Value Date/Time KUR 19.1 06/21/2022 09:35 PM URINE CHLORIDE: No results found for: CLU URINE PH: No components found for: PO4U URINE OSMOLARITY: Lab Results Component Value Date/Time OSMOU 361 06/21/2022 09:35 PM URINE CREATININE: Lab Results Component Value Date/Time LABCREA 99.0 06/21/2022 09:35 PM URINE EOSINOPHILS: No components found for: EOSU URINE PROTEIN: Lab Results Component Value Date/Time TPU 187 06/21/2022 09:35 PM TPU 187 06/21/2022 09:35 PM URINALYSIS: U/A: Lab Results Component Value Date/Time NITRU NEGATIVE 06/20/2022 08:30 AM COLORU [place] 06/20/2022 08:30 AM PHUR 5.5 06/20/2022 08:30 AM WBCUA 5 TO 10 06/20/2022 08:30 AM RBCUA TOO NUMEROUS TO COUNT 06/20/2022 08:30 AM BACTERIA FEW 06/20/2022 08:30 AM SPECGRAV 1.010 06/20/2022 08:30 AM LEUKOCYTESUR SMALL 06/20/2022 08:30 AM UROBILINOGEN Normal 06/20/2022 08:30 AM BILIRUBINUR NEGATIVE 06/20/2022 08:30 AM GLUCOSEU NEGATIVE 06/20/2022 08:30 AM KETUA NEGATIVE 06/20/2022 08:30 AM ANTIGBM:No results found for: GBMABIGG RADIOLOGY Reviewed as available. ASSESSMENT 1. Acute Kidney Injury: Nonoliguric secondary to ATIN (complicated UTI) - dialysis dependent 4.65<<4.24<<5.19<<5.25<<5.19<<5.13<<4.70; nonoliguric urine output with blood-tinged urine and Carballo in place. 2. High anion gap metabolic acidosis secondary to acute kidney injury-resolved 3. Hyponatremia -combination of appropriate (volume depletion) and inappropriate (infection) ADH excess- resolved 4. Chronic kidney disease stage IIIb secondary to diabetic nephrosclerosis with baseline creatininelikely 2.1-2.3 5. 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 History of left hydronephrosis recently with urological surgical intervention and stent placement last month 7. Type II DM has been on Farxiga at home 8. Complicated UTI/pyelonephritis post stent placement PLAN Received 2 sessions of HD on 06/24 and 06/25. Patient tolerated treatment well so far. No need for HDtoday. Will reassess tomorrow. Continue antibiotics as per GFR<15. Avoid nephrotoxin. Continue on renal diet. We will follow. Monitor daily BMP. Please do not hesitate to call with questions. Angel Frazier MD, MPH, PGY-2 Internal Medicine Resident [facility], [place], [place] Attending Physician Statement I have discussed the care of Steven Walden, including pertinent history and exam findings, with the Fellow/Residentt. I have reviewed the [place] elements of all parts of the encounter with the Fellow/ Resident. I agree with the assessment, plan and orders as documented by the resident. Ace Hanson MD MD, MRCP (), FACP 06/26/2022 12:28 PM [facility] * Sheyla Viveros MD - 06/26/2022 8:04 AM EDT Images from the original note were not included. [facility] Office: [phone] Chris Osman DO, Terrence Johns DO, Stefani Augustin DO, Jaspreet Mosley DO, Surekha Batista MD, Adrienne Means MD, Rosales Singh MD, Caitlyn Benz MD, Abdoul Camargo MD, Cathy Farooq MD, Chepe Cordova DO, Love Hess MD, Deja Guevara DO, April Girard MD, Arvin Maya MD, Jessica Osman DO, Shima Watson MD, Raphael Connor MD, Jerome Simon DO, Yoselyn Thakkar MD, Codi Self MD, Gilda Sousa MD, Sheyla Viveros MD, Vikki Adorno MD, Jarocho Real DO, Krishan Vogt MD, Radha William MD, Shaunna Freitas CNP, Prabha Hauser CNP, Shirlene Dacosta CNP, Favian Ji CNP, Yesenia Espino, TEJINDER, Ema Mason, KARINA, Calista Mendez, HOUSE MOVING SUPERVISOR, Gunjan Ruiz, KARINA, Sharon Barry, HOUSE MOVING SUPERVISOR, Sri Weiner, KARINA, Gillian Valles PA-C, Carleen Paiz, SOCIAL WORK FACULTY MEMBER, Catie Cheema, KARINA, Chelsea Kulkarni, HOUSE MOVING SUPERVISOR [facility] IN-PATIENT SERVICE [facility] Progress Note 06/26/2022 8:04 AM Name: Steven Walden Acct: [id number] Room: 0438/0438-01 Day: 6 Admit Date: 06/20/2022 1:58 AM PCP: Darion Randle MD Code Status: Full Code Subjective: C/C: Chief Complaint Patient presents with Fall Fever Flank Pain Interval History Status: Stable Patient was lying comfortably in bed. Hemodynamically stable. Looks much better and calm today. Denied any suicidal thoughts today.. Denied any current complaints today. Brief History: 62 year old male with ps tmedicla history of CKD stage III, Diabetes, HTN, HLD, Obesity, presents with left sided flank pain and fevers and chills for the past 3 days. Patient found to have emphasematus cystitis. Urology and ID following.. Patient was initially on Zyvox and Zosyn for UTI later switched to Rocephin.. Her kidney function continue to worsen and then plateaued. He was continued on bicarb drip. He started having mild uremic symptoms. Hemodialysis was initiated. He received hemodialysis sessions management nephrology. He became anxious and started on suicidal thoughts during stay. Psychiatry was consulted. Review of Systems: Constitutional: negative for chills, fevers, sweats Respiratory: negative for cough, dyspnea on exertion, shortness of breath, wheezing Cardiovascular: negative for chest pain, chest pressure/discomfort, lower extremity edema, palpitations Gastrointestinal: negative for abdominal pain, constipation, diarrhea, nausea, vomiting Neurological: Has mild tremors. Negative for dizziness, headache Psychiatric-positive for anxiety. Medications: Allergies: No Known Allergies Current Meds: Scheduled Meds: insulin glargine 25 Units SubCUTAneous Nightly clonazePAM 0.5 mg Oral Q12H gabapentin 300 mg Oral BID cefepime 2,000 mg IntraVENous Once per day on Tue brexpiprazole 2 mg Oral Daily senna 1 tablet Oral Nightly polyethylene glycol 17 g Oral Daily bisacodyl 10 mg Rectal Daily heparin (porcine) 5,000 Units SubCUTAneous 3 times per day allopurinol 100 mg Oral Daily atorvastatin 20 mg Oral Nightly budesonide-formoterol 2 puff Inhalation BID lamoTRIgine 200 mg Oral Daily mirtazapine 30 mg Oral Nightly pantoprazole 40 mg Oral QAM AC propranolol 20 mg Oral TID tamsulosin 0.4 mg Oral Daily venlafaxine 150 mg Oral Daily sodium chloride flush 5-40 mL IntraVENous 2 times per day insulin lispro 0-8 Units SubCUTAneous TID WC insulin lispro 0-4 Units SubCUTAneous Nightly Continuous Infusions: sodium chloride dextrose PRN Meds: ALPRAZolam, heparin (porcine), heparin (porcine), albuterol sulfate HFA, sodium chloride flush, sodium chloride, ondansetron OR ondansetron, acetaminophen OR acetaminophen, glucose,dextrose bolus OR dextrose bolus, glucagon (rDNA), dextrose, lidocaine, oxyCODONE Data: Past Medical History: has a past medical history of Anxiety, Chronic kidney disease, Congenital heart defect, Diabetes mellitus (HCC), Gout, Hyperlipidemia, Hypertension, Major depressive disorder, Morbid obesity (HCC), Neuropathy, SHADE (obstructive sleep apnea), and Peptic ulcer disease. Social History: reports that he has never smoked. He has never used smokeless tobacco. He reports current alcohol use. Family History: Family History Problem Relation Age of Onset Heart Disease Mother pacer Cancer Sister 58 Kidney Vitals: BP (!) 138/91 Pulse 70 Temp 98.2 F (36.8 C) (Oral) Resp 18 Ht 6' 5 (1.956 m) Wt (!) 350 lb 15.6 oz (159.2 kg) SpO2 92% BMI 41.62 kg/m Temp (24hrs), Av F (36.7 C), Min:97.2 F (36.2 C), Max:98.5 F (36.9 C) Recent Labs 06/25/22 1300 06/25/22 1708 06/25/22 1936 06/26/22 0747 POCGLU 161* 207* 173* 122* I/O (24Hr): Intake/Output Summary (Last 24 hours) at 06/26/2022 0804 Last data filed at 06/26/2022 0000 Gross per 24 hour Intake 530 ml Output 1100 ml Net -570 ml Labs: Hematology: Recent Labs 06/24/22 0554 06/25/22 0630 06/26/22 0648 WBC 10.1 10.9 13.7* RBC 3.77* 3.87* 3.93* HGB 11.9* 12.0* 12.1* HCT 35.9* 36.9* 37.5* MCV 95.2 95.3 95.4 MCH 31.6 31.0 30.8 MCHC 33.1 32.5 32.3 RDW 14.0 13.6 13.3 PLT 223 283 299 MPV 10.4 10.0 10.0 Chemistry: Recent Labs 06/24/22 0554 06/24/22 20306/25/22 0630 NA 137 137 139 K 3.9 3.8 3.7 CL 101 99 101 CO2 GLUCOSE 203* 191* 205* BUN 52* 39* 41* CREATININE 5.19* 4.24* 4.65* MG 1.8 -- 1.9 ANIONGAP 14 15 15 LABGLOM 12* 15* 14* CALCIUM 8.8 8.3* 8.9 Recent Labs 06/25/22 0624 06/25/22 0805 06/25/22 1300 06/25/22 1708 06/25/22 1936 06/26/22 0747 POCGLU 206* 224* 161* 207* 173* 122* ABG:No results found for: POCPH, PHART, PH, POCPCO2, SEI9CCN, PCO2, POCPO2, PO2ART, PO2, POCHCO3, QDD6ZJV, HCO3, NBEA, PBEA, BEART, BE, THGBART, THB, PKL9INT, YUSE2PJT, Q7WSDPWZ, O2SAT, FIO2 Lab Results Component Value Date/Time SPECIAL RAC 10ML 06/20/2022 03:51 AM Lab Results Component Value Date/Time CULTURE 06/20/2022 08:28 AM NO SIGNIFICANT GROWTH Identified as : VIRIDANS STREPTOCOCCUS GROUP <[id number] CFU/ML Radiology: CT ABDOMEN PELVIS WO CONTRAST Additional Contrast? None Result Date: 06/20/2022 1. Left ureteral stent in place with a 3 mm distal left ureteral calculus. No significant left hydronephrosis however there is perinephric and periureteral stranding suggestive of superimposed infection/inflammation. 2. 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 3. Nonobstructing bilateral renal calculi. CT HEAD WO CONTRAST Result Date: 06/20/2022 No acute intracranial abnormality. XR CHEST PORTABLE Result Date: 06/20/2022 No acute cardiopulmonary findings. Physical Examination: General appearance: alert, cooperative and no distress Mental Status: oriented to person, place and time and normal affect Lungs: clear to auscultation bilaterally, normal effort Heart: regular rate and rhythm, no murmur Abdomen: soft, nontender, nondistended, normal bowel sounds, no masses, hepatomegaly, splenomegaly Extremities: no edema, redness, tenderness in the calves Skin: no gross lesions, rashes, induration Neuro- positive for mild tremors. Psychiatry-positive for anxiety Assessment: Hospital Problems Last Modified POA * (Principal) DAISY (acute kidney injury) ([facility]) 06/20/2022 Yes Acute kidney injury superimposed on CKD ([facility]) 06/20/2022 Yes Chronic kidney disease 06/20/2022 Yes Type 2 diabetes mellitus with stage 3a chronic kidney disease ([facility]) 06/20/2022 Yes Hyperlipidemia 06/20/2022 Yes Primary hypertension 06/20/2022 Yes Left ureteral stone 06/20/2022 Yes BRITTANY (generalized anxiety disorder) 06/20/2022 Yes Major depressive disorder, recurrent, moderate ([facility]) 06/20/2022 Yes Bandemia 06/20/2022 Yes Pyelonephritis of left kidney 06/20/2022 Yes 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 Non oliguric secondary to ATN(complicated UTI)-received 2 session of hemodialysis so far. Responding well. Appreciate nephrology recommendations. Follow-up nephrology on decisionfor hemodialysis. 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 Appreciate ID recommendations. Depression-was calm and comfortable today. Denied any suicidal thoughts today. Follow-up psychiatryrecommendations. Nephrolithiasis status post stent placement 05/28/2022- Plans for lithotripsy 06/29/2022 after activeinfection is resolved. Appreciate urology recommendations. Episode of sinus tachycardia-likely from electrolyte abnormalities. Evaluated by cardiology. Continue to monitor. Obstructive sleep apnea-uses CPAP at night. Morbid obesity-lifestyle changes Type 2 diabetes-insulin sliding scale. Hypoglycemia protocol. POCT glucose checks. Tremors-on propanolol. Outpatient neurology follow-up. DVT prophylaxis-subcu heparin GI prophylaxis-on Protonix Discharge planning-was evaluated by acute rehab who recommended that patient would benefit from acute inpatient rehab when medically clear. Sheyla Viveros MD 06/26/2022 8:04 AM * David Brooks MD - 06/26/2022 7:32 AM EDT Images from the original note were not included. 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 Stop date 07/06/22 - reconciled Office f/up in [address] Scherer for infection. Please call [phone] for appointment Infection Control Recommendations [place] Precautions Contact Isolation Antimicrobial Stewardship Recommendations Simplification of therapy Targeted therapy History of Present Illness: Initial history: Steven Waldne is a 62 y.o.-year-old male presents with a left flank pain, dysuria, as well as fever ongoing for 3 days, in the ER CT scan of the abdomen suggest of a emphysematous cystitis through air in the bladder, as well as left pyelonephritis, with a stent in the left ureter, no hydronephrosis but ureteral stones. Blood cultures and urine culture were sent, ID consult placed due to emphysematous pyelonephritis Patient is diabetic, his white count is 12, creatinine clearance 36, he does have a fever of 38.3 today. Interval changes 06/26/2022 Patient Vitals for the past 8 hrs: Resp 06/26/22 0054 12 06/21 LGF, Tmax 100.9. Pt currently on Zyvox and Zosyn. BC NGTD, Ucx neg. Still bladder pain - Carballo bloody Looks better and no fever 06/22 Afebrile, vitals stable. Pt carballo has bloody output. Pt states his bladder pain is worse compared to yesterday but denies dysuria today. 06/24 Afebrile, vitals stable. Pt on ceftriaxone. No pain supra pubic area - seen in HD and had a R IJ QMthis am placed CURRENT EVALUATION : 06/26/2022 Afebrile VS stable, intermittent HTN Patient feels better No complaints No new issues per RN Medications reviewed On Cefepime 2 g after each hemodialysis. Stop date 07/06/22 Office f/up in [address] Scherer for infection. Please call [phone] for appointment Summary of relevant labs: 06/26/2022 Labs: WBC 12.7 - 8 - 8.7 - 9.7 - 10.1 CRP 111 Micro: Blood culture X206/[id number] Urine culture 06/20 strep Imaging: CT abdomen and pelvis 06/20 Left ureteral stent in place, 3 mm distal left ureteral calculus, no left hydro- Perinephric and periureteral stranding on the left suggestive of infection, gas in the bladder concerning for emphysematous cystitis Nonobstructive bilateral renal calculi Chest x-ray negative CT head negative I have personally reviewed the past medical history, past surgical history, medications, social history, and family history, and I haveupdated the database accordingly. Allergies: Patient has no known allergies. Review of Systems: Review of Systems Constitutional: Negative for activity change, chills and fever. HENT: Negative for congestion. Eyes: Negative for pain, discharge and redness. Respiratory: Negative for apnea and cough. Cardiovascular: Negative for chest pain. Gastrointestinal: Negative for abdominal distention and abdominal pain. Endocrine: Negative for cold intolerance. Genitourinary: Negative for dysuria and flank pain. Musculoskeletal: Negative for arthralgias. Skin: Negative for color change. Allergic/Immunologic: Negative for food allergies. Neurological: Negative for dizziness, tremors, syncope and headaches. Hematological: Negative for adenopathy. Psychiatric/Behavioral: Negative for agitation. Physical Examination : Physical Exam Constitutional: General: He is not in acute distress. Appearance: Normal appearance. He is not ill-appearing, toxic-appearing or diaphoretic. HENT: Head: Normocephalic and atraumatic. Nose: Nose normal. No congestion. Mouth/Throat: Mouth: Mucous membranes are moist. Eyes: Pupils: Pupils are equal, round, and reactive to light. Cardiovascular: Rate and Rhythm: Normal rate and regular rhythm. Heart sounds: Normal heart sounds. No murmur heard. Pulmonary: Effort: Pulmonary effort is normal. No respiratory distress. Breath sounds: Normal breath sounds. No stridor. No wheezing or rhonchi. Abdominal: General: There is no distension. Palpations: Abdomen is soft. Tenderness: There is no abdominal tenderness. There is no guarding. Genitourinary: Comments: Carballo Musculoskeletal: General: No swelling, tenderness, deformity or signs of injury. Cervical back: Neck supple. No rigidity or tenderness. Skin: General: Skin is warm and dry. Coloration: Skin is not jaundiced. Neurological: General: No focal deficit present. Mental Status: He is alert and oriented to person, place, and time. Psychiatric: Mood and Affect: Mood normal. Thought Content: Thought content normal. 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, neuropathy and CKD stage 3 Gout Hyperlipidemia Hypertension 2000 Major depressive disorder Morbid obesity (HCC) Neuropathy SHADE (obstructive sleep apnea) 2002 Peptic ulcer disease 2018 Duodenal Ulcer Past Surgical History: Past Surgical History: Procedure Laterality Date CHOLECYSTECTOMY 2011 CYSTOSCOPY Left 05/28/2022 CYSTOSCOPY, URETERAL STENT INSERTION, URETHRAL DILATION performed by Kevin Myles MD at [facility] OR HAND SURGERY Right 12/2021 Medications: insulin glargine 25 Units SubCUTAneous Nightly clonazePAM 0.5 mg Oral Q12H gabapentin 300 mg Oral BID cefepime 2,000 mg IntraVENous Once per day on Tue brexpiprazole 2 mg Oral Daily senna 1 tablet Oral Nightly polyethylene glycol 17 g Oral Daily bisacodyl 10 mg Rectal Daily heparin (porcine) 5,000 Units SubCUTAneous 3 times per day allopurinol 100 mg Oral Daily atorvastatin 20 mg Oral Nightly budesonide-formoterol 2 puff Inhalation BID lamoTRIgine 200 mg Oral Daily mirtazapine 30 mg Oral Nightly pantoprazole 40 mg Oral QAM AC propranolol 20 mg Oral TID tamsulosin 0.4 mg Oral Daily venlafaxine 150 mg Oral Daily sodium chloride flush 5-40 mL IntraVENous 2 times per day insulin lispro 0-8 Units SubCUTAneous TID WC insulin lispro 0-4 Units SubCUTAneous Nightly Social History: Social History Socioeconomic History Marital status: Spouse name: Not on file Number of children: Not on file Years of education: Not on file Highest education level: Not on file Occupational History Not on file Tobacco Use Smoking status: Never Smokeless tobacco: Never Substance and Sexual Activity Alcohol use: Yes Comment: less than 6 beers annually Drug use: Not on file Sexual activity: Not on file Other Topics Concern Not on file Social History Narrative Unemployed Social Determinants of Health Financial Resource Strain: Not on file Food Insecurity: Not on file Transportation Needs: Not on file Physical Activity: Not on file Stress: Not on file Social Connections: Not on file Intimate Partner Violence: Not on file Housing Stability: Not on file Family History: Family History Problem Relation Age of Onset Heart Disease Mother pacer Cancer Sister 58 Kidney Medical Decision Making: I have independently reviewed/ordered the following labs: CBC with Differential: Recent Labs 06/24/22 0554 06/25/22 0630 WBC 10.1 10.9 HGB 11.9* 12.0* HCT 35.9* 36.9* PLT 223 283 BMP: Recent Labs 06/24/22 0554 06/24/22 2031 06/25/22 0630 NA 137 137 139 K 3.9 3.8 3.7 CL 101 99 101 CO2 22 23 23 BUN 52* 39* 41* CREATININE 5.19* 4.24* 4.65* MG 1.8 -- 1.9 Hepatic Function Panel: No results for input(s): PROT, LABALBU, BILIDIR, IBILI, BILITOT, ALKPHOS, ALT, AST in the last 72 hours. No results for input(s): RPR in the last 72 hours. No results for input(s): HIV in the last 72 hours. No results for input(s): BC in the last 72 hours. Lab Results Component Value Date/Time CREATININE 4.65 06/25/2022 06:30 AM GLUCOSE 205 06/25/2022 06:30 AM Detailed results: Thank you for allowing us to participate in the care of this patient.Please call with questions. This note is created with the assistance of a speech recognition program. While intending to generate adocument that actually reflects the content of the visit, the document can still have some errors including those of syntax and sound a like substitutions which may escape proof reading. It such instances, actual meaningcan be extrapolated by contextual diversion. David Brooks MD Office: Perfect serve / office [phone] * Carolina Marquez, STOCKKEEPER - 06/25/2022 4:15 PM EDT Physical Therapy Facility/Department: [address] ONC/MED SURG Physical Therapy Daily treatment note Name: Steven Walden : 1960 Date of Service: 06/25/2022 Discharge Recommendations: Patient would benefit from continued therapy after discharge PT Equipment Recommendations Equipment Needed: Yes Mobility Devices: Walker Walker: Rolling Patient Diagnosis(es): The primary encounter diagnosis was Acute kidney injury superimposed on CKD (HCC). A diagnosis of Pyelonephritis was also pertinent to this visit. Past Medical History: has a past medical history of Anxiety, Chronic kidney disease, Congenital heart defect, Diabetes mellitus (HCC), Gout, Hyperlipidemia, Hypertension, Major depressive disorder, Morbid obesity ([facility]), Neuropathy, SHADE (obstructive sleep apnea), and Peptic ulcer disease. Past Surgical History: has a past surgical history that includes Cholecystectomy (2010); Hand surgery (Right, 12/2021); and Cystoscopy (Left, 05/28/2022). Assessment Body Structures, Functions, Activity Limitations Requiring Skilled Therapeutic Intervention: Decreased functional mobility ;Decreased endurance;Increased pain;Decreased posture;Decreased balance;Decreased ROM;Decreased strength Assessment: Pt ambulated 10ft with RW Rebekah, requiring MIN a to perform bed mobility at this time, Pt sat EOB 30 mins with CGA than SBA. pt stated he felt depressed and suicidal, RN notified and a sitter entered. Therapist educated pt on relaxation techniques, deep breathing, and some distraction techniques. Pt demonstrates generalized weakness and would be unable to perform stair negotiation at this time which is required at prior living arrangments. Recommending continued skilled physical therapy to address these deficits and maximize independence upon discharge. Therapy Prognosis: Good Decision Making: Medium Complexity Requires PT Follow-Up: Yes Activity Tolerance Activity Tolerance: Patient limited by endurance;Other (comment) (Pt feeling depressed and suicidal) Plan Physcial Therapy Plan General Plan: (5-6 X WEEK) Current Treatment Recommendations: Strengthening, ROM, Balance training, Gait training, Therapeuticactivities, Patient/Caregiver education & training, Transfer training, Endurance training, Equipment evaluation, education, & procurement, Stair training, Functional mobility training Safety Devices Type of Devices: Left in chair, Nurse notified, Gait belt, Call light within reach, Heels elevated for pressure relief, Sitter present Restraints Restraints Initially in Place: No Restrictions Restrictions/Precautions Restrictions/Precautions: Fall Risk Required Braces or Orthoses?: No Position Activity Restriction Other position/activity restrictions: amb pt.; up w/assist Subjective General Chart Reviewed: Yes Patient assessed for rehabilitation services?: Yes Response To Previous Treatment: Patient with no complaints from previous session. Family / Caregiver Present: No Follows Commands: Within Functional Limits General Comment Comments: Pt retired to recliner NT at chair side , chair alarm set Subjective Subjective: RN and pt in agreement for PT eval. Denied pain, Pt supine in bed upon PT arrival, pt with flat affect, stated he was struggling, feeling very depressed, panicking, visibily notable tremors. Pt stated he is afraid HD caused his meds to be depleted. Increased time spent with pt for encourgment to participate and reassurance. Pt stated to STOCKKEEPER that he wants to kill himself, and they took his tools away , STOCKKEEPER immediately notified RN, and they followed SI protocals Cognition Orientation Overall Orientation Status: Within Functional Limits Orientation Level: Oriented to place;Oriented to situation;Disoriented to time;Oriented to person Cognition Overall Cognitive Status: Exceptions Arousal/Alertness: Delayed responses to stimuli Following Commands: Follows multistep commands with repitition;Follows multistep commands with increased time Attention Span: Attends with cues to redirect;Difficulty attending to directions Safety Judgement: Decreased awareness of need for safety Problem Solving: Decreased awareness of errors Insights: Decreased awareness of deficits Initiation: Requires cues for some Sequencing: Requires cues for some Cognition Comment: Pt observadlty depressed, stated he wants to kill himself, precautions and measures taken to ensure pt safety Objective Bed mobility Supine to Sit: Minimal assistance Sit to Supine: Unable to assess Scooting: Minimal assistance Bed Mobility Comments: Increased time to complete; HOB raised, increased assist due to pt fatigue from depression retired to bedside recliner at end of session Transfers Sit to Stand: Contact guard assistance Stand to Sit: Contact guard assistance Bed to Chair: Minimal assistance Comment: STS performed with use of RW Ambulation Surface: Level tile Device: Rolling Walker Assistance: Minimal assistance Quality of Gait: Bilateral upper and lower extremity tremor noted throughout session Gait Deviations: Slow Reyna;Decreased step length;Decreased step height Distance: 10 ft Comments: Pt dragging feet, lowered head posture, notable tremors, min asist for safety More Ambulation?: No Stairs/Curb Stairs?: No Balance Posture: Fair Sitting - Static: Good;- Sitting - Dynamic: Fair;+ Standing - Static: Fair Standing - Dynamic: Fair Comments: standing balance assesed with RW; pt able to sit EOB CGA Exercise Treatment: seated BLE ther ex ankle pumps, marches, LAQs x10, HS stretch 30 sec x2 Static Sitting Balance Exercises: EOB x 30 mins CGA than SBA AM-PAC Score [facility] Inpatient Mobility Raw Score : 16 (06/25/221614) AM-[facility] Inpatient T-Scale Score : 40.78 (06/25/221614) Mobility Inpatient CMS 0-100% Score: 54.16 (06/25/221614) Mobility Inpatient CMS G-Code Modifier : CK (06/25/221614) Goals Short Term Goals Time Frame for Short Term Goals: 14 Short Term Goal 1: Pt to perform bed mobility from flat surface CGA Short Term Goal 2: Pt to demonstrate functional transfers independently Short Term Goal 3: Ambulate 300ft w/ no AD independently Short Term Goal 4: Ascend/descend 8 stairs with bilateral rails to simulate home environment independently Patient Goals Patient Goals : To go home Education Patient Education Education Given To: Patient Education Provided: Role of Therapy;Plan of Care;Home Exercise Program;Fall Prevention Strategies Education Provided Comments: increased encourgment, disctraction methods, relaxation tech Education Method: Demonstration Barriers to Learning: None Education Outcome: Verbalized understanding;Demonstrated understanding Therapy Time Individual Concurrent Group Co-treatment Time In 1445 Time Out 1545 Minutes 60 Timed Code Treatment Minutes: 60 Minutes Carolina Marquez PTA * Sheyla Viveros MD - 06/25/2022 3:10 PM EDT Came bedside to evaluate pt. He was very anxious. Otherwise AAOx3. Consulted psychiatry. Spoke to psychiatrist. Started on Klonopin 05 Bid, further recs to follow. Sheyla Viveros MD * Brynn Charles RN - 06/25/2022 3:01 PM EDT Pt has been feeling anxious since returning from dialysis. Attending was notified and Xanax was increased to Q12 hours. Dose administered. Vitals stable. Physical therapy now at bedside. PT stated towriter pt is feeling suicidal. Attending notified and call placed to staffing to request bedside sitter. 1504 Dr Viveros at bedside for evaluation. Suicide precautions activated. Sitter at bedside. * Estela Hugo - 06/25/2022 12:27 PM EDT Dialysis Post Treatment Note Vitals: 06/25/22 1216 BP: (!) 171/98 Pulse: 85 Resp: 16 Temp: 98.5 F (36.9 C) SpO2: Pre-Weight = 159.6kg Post-weight = Weight: (!) 350 lb 15.6 oz (159.2 kg) Total Liters Processed = Blood Volume Processed (Liters): 44.53 l/min Rinseback Volume (mL) = Rinseback Volume (ml): 280 ml Net Removal (mL) = 200 Patient's dry weight=n/a Type of access used=Temp catheter Length of jhapxnpar=718 Patient tolerated second treatment well with no complaints. Treatment ended 20 mins early d/t machine clotting. last repairer Jodi notified. * Estela Hugo - 06/25/2022 9:50 AM EDT Dialysis Time Out To be done by RN and tech or 2 RNs Staff Names Estela CHONG & Tiffany RN [x] Identity of the patient using 2 patient identifiers [x] Consent for treatment [x] Equipment-proper machine and dialyzer [x] B-Hep B status [x] Orders- to include bath, blood flow, dialyzer, time and fluid removal [x] Access-Correct site and in working order [x] Time for patient to ask questions. * Allegra Scherer MD - 06/25/2022 9:44 AM EDT Images from the original note were not included. 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 Emphysematous cystitis-strep low count bandemia Bilateral nonobstructive kidney stones Diabetes mellitus, CKD 3, obesity Discussion / summary of stay / plan of care Recommendations BC neg Post Zosyn vanco Then zyvox zosyn 06/22 switch AB to cefepime 2 g QHD till 07/02 - reconsield to treat the Streptococcus growing in the urine 06/25 HD might stop due to recovering kid function - keep cefepime as planned but 3 x per week - till 07/02 Severely depressed - med to resume past doses of antidepressants Ok for DC Infection Control Recommendations [place] Precautions Contact Isolation Antimicrobial Stewardship Recommendations Simplification of therapy Targeted therapy History of Present Illness: Initial history: Steven Walden is a 62 y.o.-year-old male presents with a left flank pain, dysuria, as well as fever ongoing for 3 days, in the ER CT scan of the abdomen suggest of a emphysematous cystitis through air in the bladder, as well as left pyelonephritis, with a stent in the left ureter, no hydronephrosis but ureteral stones. Blood cultures and urine culture were sent, ID consult placed due to emphysematous pyelonephritis Patient is diabetic, his white count is 12, creatinine clearance 36, he does have a fever of 38.3 today. Interval changes 06/25/2022 Patient Vitals for the past 8 hrs: BP Temp Temp src Pulse Resp SpO2 Weight 06/25/22 0754 (!) 148/85 98.2 F (36.8 C) Oral 85 17 93 % -- 06/25/22 0600 -- -- -- -- -- -- (!) 342 lb 2.5 oz (155.2 kg) 06/25/22 0435 133/73 97.8 F (36.6 C) Oral 83 18 92 % -- 06/21 LGF, Tmax 100.9. Pt currently on Zyvox and Zosyn. BC NGTD, Ucx neg. Still bladder pain - Carballo bloody Looks better and no fever 06/22 Afebrile, vitals stable. Pt carballo has bloody output. Pt states his bladder pain is worse compared to yesterday but denies dysuria today. 06/24 Afebrile, vitals stable. Pt on ceftriaxone. No pain supra pubic area - seen in HD and had a R IJ QMthis am placed 06/25 Afebrile. Pt on cefepime w/HD. Dialyzed 06/24, nephro rec dialysis again today. Pt had low mood today, but states that bladder pain has improved. Carballo was blood-tinged but less significantly than prior day. Summary of relevant labs: Labs: WBC 12.7 - 8 - 8.7 - 9.7 - 10.1 - 10.9 CRP 111 Micro: Blood culture [id number] Urine culture 06/20 strep Imaging: CT abdomen and pelvis 06/20 Left ureteral stent in place, 3 mm distal left ureteral calculus, no left hydro- Perinephric and periureteral stranding on the left suggestive of infection, gas in the bladder concerning for emphysematous cystitis Nonobstructive bilateral renal calculi Chest x-ray negative CT head negative I have personally reviewed the past medical history, past surgical history, medications, social history, and family history, and I haveupdated the database accordingly. Allergies: Patient has no known allergies. Review of Systems: Review of Systems Constitutional: Negative for activity change, chills, diaphoresis and fever. HENT: Negative for congestion. Eyes: Negative for pain, discharge and redness. Respiratory: Negative for apnea, cough and shortness of breath. Cardiovascular: Negative for chest pain. Gastrointestinal: Negative for abdominal distention and abdominal pain. Endocrine: Negative for cold intolerance. Genitourinary: Negative for dysuria and flank pain. Musculoskeletal: Negative for arthralgias. Skin: Negative for color change. Allergic/Immunologic: Negative for food allergies. Neurological: Negative for dizziness, tremors, syncope and headaches. Hematological: Negative for adenopathy. Psychiatric/Behavioral: Negative for agitation. Physical Examination : Physical Exam Constitutional: General: He is not in acute distress. Appearance: Normal appearance. He is not ill-appearing, toxic-appearing or diaphoretic. HENT: Head: Normocephalic and atraumatic. Nose: Nose normal. No congestion or rhinorrhea. Mouth/Throat: Mouth: Mucous membranes are moist. Eyes: Pupils: Pupils are equal, round, and reactive to light. Cardiovascular: Rate and Rhythm: Normal rate and regular rhythm. Heart sounds: Normal heart sounds. No murmur heard. Pulmonary: Effort: Pulmonary effort is normal. No respiratory distress. Breath sounds: Normal breath sounds. No stridor. No wheezing or rhonchi. Abdominal: General: There is no distension. Palpations: Abdomen is soft. There is no mass. Tenderness: There is no abdominal tenderness. There is no guarding. Genitourinary: Comments: Carballo Musculoskeletal: General: No swelling, tenderness, deformity or signs of injury. Cervical back: Neck supple. No rigidity or tenderness. Skin: General: Skin is warm and dry. Coloration: Skin is not jaundiced. Findings: No bruising. Neurological: General: No focal deficit present. Mental Status: He is alert and oriented to person, place, and time. Psychiatric: Thought Content: Thought content normal. 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, neuropathy and CKD stage 3 Gout Hyperlipidemia Hypertension 2000 Major depressive disorder Morbid obesity (HCC) Neuropathy SHADE (obstructive sleep apnea) 2002 Peptic ulcer disease 2018 Duodenal Ulcer Past Surgical History: Past Surgical History: Procedure Laterality Date CHOLECYSTECTOMY 2011 CYSTOSCOPY Left 05/28/2022 CYSTOSCOPY, URETERAL STENT INSERTION, URETHRAL DILATION performed by Kevin Myles MD at [facility] OR HAND SURGERY Right 12/2021 Medications: cefepime 2,000 mg IntraVENous Once per day on Tue brexpiprazole 2 mg Oral Daily insulin glargine 20 Units SubCUTAneous Nightly senna 1 tablet Oral Nightly polyethylene glycol 17 g Oral Daily bisacodyl 10 mg Rectal Daily heparin (porcine) 5,000 Units SubCUTAneous 3 times per day allopurinol 100 mg Oral Daily atorvastatin 20 mg Oral Nightly budesonide-formoterol 2 puff Inhalation BID lamoTRIgine 200 mg Oral Daily mirtazapine 30 mg Oral Nightly pantoprazole 40 mg Oral QAM AC propranolol 20 mg Oral TID tamsulosin 0.4 mg Oral Daily venlafaxine 150 mg Oral Daily sodium chloride flush 5-40 mL IntraVENous 2 times per day insulin lispro 0-8 Units SubCUTAneous TID WC insulin lispro 0-4 Units SubCUTAneous Nightly Social History: Social History Socioeconomic History Marital status: Spouse name: Not on file Number of children: Not on file Years of education: Not on file Highest education level: Not on file Occupational History Not on file Tobacco Use Smoking status: Never Smokeless tobacco: Never Substance and Sexual Activity Alcohol use: Yes Comment: less than 6 beers annually Drug use: Not on file Sexual activity: Not on file Other Topics Concern Not on file Social History Narrative Unemployed Social Determinants of Health Financial Resource Strain: Not on file Food Insecurity: Not on file Transportation Needs: Not on file Physical Activity: Not on file Stress: Not on file Social Connections: Not on file Intimate Partner Violence: Not on file Housing Stability: Not on file Family History: Family History Problem Relation Age of Onset Heart Disease Mother pacer Cancer Sister 58 Kidney Medical Decision Making: I have independently reviewed/ordered the following labs: CBC with Differential: Recent Labs 06/24/22 0554 06/25/22 0630 WBC 10.1 10.9 HGB 11.9* 12.0* HCT 35.9* 36.9* PLT 223 283 BMP: Recent Labs 06/24/22 0554 06/24/22203006/25/22 0630 NA 137 137 139 K 3.9 3.8 3.7 CL 101 99 101 CO2 22 23 23 BUN 52* 39* 41* CREATININE 5.19* 4.24* 4.65* MG 1.8 -- 1.9 Hepatic Function Panel: No results for input(s): PROT, LABALBU, BILIDIR, IBILI, BILITOT, ALKPHOS, ALT, AST in the last 72 hours. No results for input(s): RPR in the last 72 hours. No results for input(s): HIV in the last 72 hours. No results for input(s): BC in the last 72 hours. Lab Results Component Value Date/Time CREATININE 4.65 06/25/2022 06:30 AM GLUCOSE 205 06/25/2022 06:30 AM Detailed results: Thank you for allowing us to participate in the care of this patient.Please call with questions. This note is created with the assistance of a speech recognition program. While intending to generate adocument that actually reflects the content of the visit, the document can still have some errors including those of syntax and sound a like substitutions which may escape proof reading. It such instances, actual meaningcan be extrapolated by contextual diversion. Chela Gonsalves Office: Perfect serve / office [phone] I have discussed the care of the patient, including pertinent history and exam findings, with the resident. I have seen and examined the patient and the [place] elements of all parts of the encounter have been performed by me. I agree with the assessment, plan and orders as documented by the resident. Allegra Scherer, Infectious Diseases * SANCHEZ Aaron - 06/25/2022 9:08 AM EDT Images from the original note were not included. Occupational Therapy [facility] Occupational Therapy Not Seen Note DATE: 06/25/2022 NAME: Steven Walden : 1960 Patient not seen this date for Occupational Therapy due to: Hemodialysis: Next Scheduled Treatment: 06/26 * Sheyla Viveros MD - 06/25/2022 8:43 AM EDT Images from the original note were not included. [facility] Office: [phone] Chris Osman DO, Terrence Johns DO, Stefani Augustin DO, Jaspreet Mosley DO, Surekha Batista MD, Adrienne Means MD, Rosales Singh MD, Caitlyn Benz MD, Abdoul Camargo MD, Cathy Farooq MD, Chepe Cordova DO, Love Hess MD, Deja Guevara DO, April Girard MD, Arvin Maya MD, Jessica Osman DO, Shima Watson MD, Raphael Connor MD, Jerome Simon DO, Yoselyn Thakkar MD, Codi Self MD, Gilda Sousa MD, Sheyla Viveros MD, Vikki Adorno MD, Jarocho Real DO, Krishan Vogt MD, Radha William MD, Shaunna Freitas, KARINA, Prabha Hauser CNP, Shirlene Dacosta CNP, Favian Ji CNP, Yesenia Espino, TEJINDER, Ema Mason CNP, Calista Mendez CNP, Gunjan Ruiz CNP, Sharon Barry, HOUSE MOVING SUPERVISOR, Sri Weiner, HOUSE MOVING SUPERVISOR, MEGAN SosaC, Carleen Paiz, SOCIAL WORK FACULTY MEMBER, Catie Cheema, HOUSE MOVING SUPERVISOR, Chelsea Kulkarni, HOUSE MOVING SUPERVISOR [facility] IN-PATIENT SERVICE [facility] Progress Note 06/25/2022 8:43 AM Name: Steven Walden Acct: [id number] Room: [facility]/0438-[facility] Day: 5 Admit Date: 06/20/2022 1:58 AM PCP: Darion Randle MD Code Status: Full Code Subjective: C/C: Chief Complaint Patient presents with Fall Fever Flank Pain Interval History Status: Stable Patient received hemodialysis this morning which was a uneventful.. Later afternoon patient had seen and examined bedside. He was very anxious. Mentioned having suicidal thoughts. No intent or ideation. Psychiatry was consulted and he was started on Klonopin. Bedside sitter in place. Brief History: 62 year old male with ps tmedicla history of CKD stage III, Diabetes, HTN, HLD, Obesity, presents with left sided flank pain and fevers and chills for the past 3 days. Patient found to have emphasematus cystitis. Urology and ID following.. Patient was initially on Zyvox and Zosyn for UTI later switched to Rocephin.. Her kidney function continue to worsen and then plateaued. He was continued on bicarb drip. He started having mild uremic symptoms. Hemodialysis was initiated. He received hemodialysis sessions management nephrology. He became anxious and started on suicidal thoughts during stay. Psychiatry was consulted. Review of Systems: Constitutional: negative for chills, fevers, sweats Respiratory: negative for cough, dyspnea on exertion, shortness of breath, wheezing Cardiovascular: negative for chest pain, chest pressure/discomfort, lower extremity edema, palpitations Gastrointestinal: negative for abdominal pain, constipation, diarrhea, nausea, vomiting Neurological: Has mild tremors. Negative for dizziness, headache Psychiatric-anxious. Positive for suicidal thoughts Medications: Allergies: No Known Allergies Current Meds: Scheduled Meds: cefepime 2,000 mg IntraVENous Once per day on Tue brexpiprazole 2 mg Oral Daily insulin glargine 20 Units SubCUTAneous Nightly senna 1 tablet Oral Nightly polyethylene glycol 17 g Oral Daily bisacodyl 10 mg Rectal Daily heparin (porcine) 5,000 Units SubCUTAneous 3 times per day allopurinol 100 mg Oral Daily atorvastatin 20 mg Oral Nightly budesonide-formoterol 2 puff Inhalation BID lamoTRIgine 200 mg Oral Daily mirtazapine 30 mg Oral Nightly pantoprazole 40 mg Oral QAM AC propranolol 20 mg Oral TID tamsulosin 0.4 mg Oral Daily venlafaxine 150 mg Oral Daily sodium chloride flush 5-40 mL IntraVENous 2 times per day insulin lispro 0-8 Units SubCUTAneous TID WC insulin lispro 0-4 Units SubCUTAneous Nightly Continuous Infusions: sodium chloride dextrose PRN Meds: heparin (porcine), heparin (porcine), ALPRAZolam, albuterol sulfate HFA, sodium chloride flush, sodium chloride, ondansetron OR ondansetron, acetaminophen OR acetaminophen, glucose,dextrose bolus OR dextrose bolus, glucagon (rDNA), dextrose, lidocaine, oxyCODONE Data: Past Medical History: has a past medical history of Anxiety, Chronic kidney disease, Congenital heart defect, Diabetes mellitus (HCC), Gout, Hyperlipidemia, Hypertension, Major depressive disorder, Morbid obesity (HCC), Neuropathy, SHADE (obstructive sleep apnea), and Peptic ulcer disease. Social History: reports that he has never smoked. He has never used smokeless tobacco. He reports current alcohol use. Family History: Family History Problem Relation Age of Onset Heart Disease Mother pacer Cancer Sister 58 Kidney Vitals: BP (!) 148/85 Pulse 85 Temp 98.2 F (36.8 C) (Oral) Resp 17 Ht 6' 5 (1.956 m) Wt (!) 342 lb 2.5 oz (155.2 kg) SpO2 93% BMI 40.57 kg/m Temp (24hrs), Av.2 F (36.8 C), Min:97.8 F (36.6 C), Max:98.7 F (37.1 C) Recent Labs 06/24/22 19306/24/22201106/25/22 0624 06/25/22 0805 POCGLU 179* 179* 206* 224* I/O (24Hr): Intake/Output Summary (Last 24 hours) at 06/25/2022 0843 Last data filed at 06/25/2022 0611 Gross per 24 hour Intake 1002 ml Output 1600 ml Net -598 ml Labs: Hematology: Recent Labs 06/23/22 0551 06/24/22 0554 06/25/22 0630 WBC 9.7 10.1 10.9 RBC 3.83* 3.77* 3.87* HGB 11.7* 11.9* 12.0* HCT 36.4* 35.9* 36.9* MCV 95.0 95.2 95.3 MCH 30.5 31.6 31.0 MCHC 32.1 33.1 32.5 RDW 14.2 14.0 13.6 PLT 216 223 283 MPV 11.1 10.4 10.0 CRP 111.5* -- -- Chemistry: Recent Labs 06/23/22 0551 06/23/22 1407 06/24/22 0554 06/24/22203006/25/22 0630 NA 136 < > 137 137 139 K 4.5 < > 3.9 3.8 3.7 CL 100 < > 101 99 101 CO2 20 < > 22 23 GLUCOSE 249* -- 203* 191* 205* BUN 53* -- 52* 39* 41* CREATININE 5.25* -- 5.19* 4.24* 4.65* MG 1.8 -- 1.8 -- 1.9 ANIONGAP 16 < > 14 15 15 LABGLOM 12* -- 12* 15* 14* CALCIUM 8.8 -- 8.8 8.3* 8.9 < > = values in this interval not displayed. Recent Labs 06/24/22 1141 06/24/22 1836 06/24/22 1939 06/24/22201106/25/22 0624 06/25/22 0805 POCGLU 227* 173* 179* 179* 206* 224* ABG:No results found for: POCPH, PHART, PH, POCPCO2, CLO0VZX, PCO2, POCPO2, PO2ART, PO2, POCHCO3, BAH9OHN, HCO3, NBEA, PBEA, BEART, BE, THGBART, THB, GEG4HEE, BMAA7XBK, P4BHHBKY, O2SAT, FIO2 Lab Results Component Value Date/Time SPECIAL RAC 10ML 06/20/2022 03:51 AM Lab Results Component Value Date/Time CULTURE 06/20/2022 08:28 AM NO SIGNIFICANT GROWTH Identified as : VIRIDANS STREPTOCOCCUS GROUP <[id number] CFU/ML Radiology: CT ABDOMEN PELVIS WO CONTRAST Additional Contrast? None Result Date: 06/20/2022 1. Left ureteral stent in place with a 3 mm distal left ureteral calculus. No significant left hydronephrosis however there is perinephric and periureteral stranding suggestive of superimposed infection/inflammation. 2. 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 3. Nonobstructing bilateral renal calculi. CT HEAD WO CONTRAST Result Date: 06/20/2022 No acute intracranial abnormality. XR CHEST PORTABLE Result Date: 06/20/2022 No acute cardiopulmonary findings. Physical Examination: General appearance: alert, cooperative and no distress Mental Status: oriented to person, place and time and normal affect Lungs: clear to auscultation bilaterally, normal effort Heart: regular rate and rhythm, no murmur Abdomen: soft, nontender, nondistended, normal bowel sounds, no masses, hepatomegaly, splenomegaly Extremities: no edema, redness, tenderness in the calves Skin: no gross lesions, rashes, induration Neuro- positive for mild tremors. Psychiatry-anxious. Positive for suicidal thoughts Assessment: Hospital Problems Last Modified POA * (Principal) DAISY (acute kidney injury) ([facility]) 06/20/2022 Yes Acute kidney injury superimposed on CKD ([facility]) 06/20/2022 Yes Chronic kidney disease 06/20/2022 Yes Type 2 diabetes mellitus with stage 3a chronic kidney disease ([facility]) 06/20/2022 Yes Hyperlipidemia 06/20/2022 Yes Primary hypertension 06/20/2022 Yes Left ureteral stone 06/20/2022 Yes BRITTANY (generalized anxiety disorder) 06/20/2022 Yes Major depressive disorder, recurrent, moderate ([facility]) 06/20/2022 Yes Bandemia 06/20/2022 Yes Pyelonephritis of left kidney 06/20/2022 Yes 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 Non oliguric secondary to ATN(complicated UTI)-receiving hemodialysis sessions. Had hemodialysis today. Appreciate nephrology recommendations. CKD stage IIIb-baseline 2.0-2.2 Emphysematous cystitis-on cefepime. Appreciate ID recommendations. Depression-became anxious this afternoon. Mentioned having suicidal thoughts. Already on on Lamictal, Effexor and Remeron and Rexulti which are his home medications. Consulted psychiatry. Added Klonopin. Further recommendations to follow. Bedside sitter.... Nephrolithiasis status post stent placement 05/28/2022- Plans for lithotripsy 06/29/2022 after activeinfection is resolved. Appreciate urology recommendations. Episode of sinus tachycardia-likely from electrolyte abnormalities. Evaluated by cardiology. Continue to monitor. Obstructive sleep apnea-uses CPAP at night. Morbid obesity-lifestyle changes Type 2 diabetes-insulin sliding scale. Hypoglycemia protocol. POCT glucose checks. Tremors-on propanolol. Outpatient neurology follow-up. DVT prophylaxis-subcu heparin GI prophylaxis-on Protonix Discharge planning-PT OT following. schedule manager to follow. Dilnoor Jackeline, MD 06/25/2022 8:43 AM * Ace Hanson MD - 06/25/2022 8:33 AM EDT Nephrology Progress Note SUBJECTIVE Patient was seen at dialysis and chart reviewed. No acute events overnight. Patient remained afebrile and hemodynamically stable. Tunneled catheter was placed yesterday and patient was initiated on hemodialysis. Patient complained of trouble with breathing in the last 30-minute of treatment. He was started on 2 L nasal cannula oxygen that helped his symptoms. No fluid removal was done on first dialysis session. Urine output: 1.3 L /24 hours Patient has a Carballo catheter in place. Labs reviewed: Sodium 139, potassium 3.7, bicarb 23, BUN 41<<39; creatinine 4.65<<4.24<<5.19; calcium 8.9; WBC 10.9, hemoglobin 12, platelets 283 HPI: 62-year-old male with a PMH significant of type II DM, diagnosed 15 years ago with vision compromise (no diagnosis of retinopathy), A1c has been fluctuating between 7 and 11 according to his family, CKD stage III, used to follow up at [facility] nephrology, has not seen retort loader in the last 6 years, with unknown baseline creatinine, chronic lower extremity edema, morbid obesity (BMI 41.5),essential hypertension, remote history of nephrolithiasis. He presented with fever, chills and left-sided flank pain days prior to presentation on 06/20/2022. Patient also had apparently a fall at home. Patient was recently admitted in May for an obstructing stone and solitary working kidney, urology had placed stent and Carballo was placed with intraoperative dilation. Patient now has gross hematuria. Patient was supposed to follow-up in 2 weeks with urology for definitive stone treatment however patient did not follow-up. Patient was found to have emphysematous cystitis. Patient was taking Farxiga on discharge. OBJECTIVE CURRENT TEMPERATURE: Temp: 98.2 F (36.8 C) MAXIMUM TEMPERATURE OVER 24HRS: Temp (24hrs), Av.2 F (36.8 C), Min:97.8 F (36.6 C), Max:98.7 F (37.1 C) CURRENT RESPIRATORY RATE: Resp: 17 CURRENT PULSE: Heart Rate: 85 CURRENT BLOOD PRESSURE: BP: (!) 148/85 24HR BLOOD PRESSURE RANGE: Systolic (24hrs), Av , Min:132 , Max:155 ; Diastolic (24hrs), Av, Min:73, Max:93 24HR INTAKE/OUTPUT: Intake/Output Summary (Last 24 hours) at 06/25/2022 0833 Last data filed at 06/25/2022 0611 Gross per 24 hour Intake 1002 ml Output 1600 ml Net -598 ml PHYSICAL EXAM General: AAO x 3, HEENT: Atraumatic, normocephalic. Eyes: Normal conjunctiva, no icterus Neck: No JVD, no accessory muscle use, midline trachea Chest: Good bilateral air entry and clear to auscultation bilaterally and symmetrically with no wheezes or rales or rhonchi Cardiac: S1 S2 audible. No S3. Abdomen: Obese and soft and not tender not distended with active bowel sounds : No suprapubic or flank tenderness. Carballo in place with blood-tinged urine Neuro: AAO x 3, No FND. No asterixis or clonus SKIN: No rashes, good skin turgor. Extremities: Mild peripheral edema, no cyanosis CURRENT MEDICATIONS cefepime (MAXIPIME) 2,000 mg in sterile water 20 mL IV syringe, Once per day on Tue heparin (porcine) injection 1,100 Units, PRN heparin (porcine) injection 1,400 Units, PRN ALPRAZolam (XANAX) tablet 0.5 mg, Nightly PRN brexpiprazole (REXULTI) tablet 2 mg, Daily insulin glargine (LANTUS) injection vial 20 Units, Nightly senna (SENOKOT) tablet 8.6 mg, Nightly polyethylene glycol (GLYCOLAX) packet 17 g, Daily bisacodyl (DULCOLAX) suppository 10 mg, Daily heparin (porcine) injection 5,000 Units, 3 times per day albuterol sulfate HFA (PROVENTIL;VENTOLIN;PROAIR) 108 (90 Base) MCG/ACT inhaler 2 puff, Q6H PRN allopurinol (ZYLOPRIM) tablet 100 mg, Daily atorvastatin (LIPITOR) tablet 20 mg, Nightly budesonide-formoterol (SYMBICORT) 80-4.5 MCG/ACT inhaler 2 puff, BID lamoTRIgine (LAMICTAL) tablet 200 mg, Daily mirtazapine (REMERON) tablet 30 mg, Nightly pantoprazole (PROTONIX) tablet 40 mg, QAM AC propranolol (INDERAL) tablet 20 mg, TID tamsulosin (FLOMAX) capsule 0.4 mg, Daily venlafaxine (EFFEXOR XR) extended release capsule 150 mg, Daily sodium chloride flush 0.9 % injection 5-40 mL, 2 times per day sodium chloride flush 0.9 % injection 5-40 mL, PRN 0.9 % sodium chloride infusion, PRN ondansetron (ZOFRAN-ODT) disintegrating tablet 4 mg, Q8H PRN Or ondansetron (ZOFRAN) injection 4 mg, Q6H PRN acetaminophen (TYLENOL) tablet 650 mg, Q6H PRN Or acetaminophen (TYLENOL) suppository 650 mg, Q6H PRN insulin lispro (HUMALOG) injection vial 0-8 Units, TID WC insulin lispro (HUMALOG) injection vial 0-4 Units, Nightly glucose chewable tablet 16 g, PRN dextrose bolus 10% 125 mL, PRN Or dextrose bolus 10% 250 mL, PRN glucagon (rDNA) injection 1 mg, PRN dextrose 10 % infusion, Continuous PRN lidocaine (XYLOCAINE) 2 % uro-jet, PRN oxyCODONE (ROXICODONE) immediate release tablet 5 mg, Q4H PRN LABS CBC: Recent Labs 06/23/22 0551 06/24/22 0554 06/25/22 0630 WBC 9.7 10.1 10.9 RBC 3.83* 3.77* 3.87* HGB 11.7* 11.9* 12.0* HCT 36.4* 35.9* 36.9* MCV 95.0 95.2 95.3 MCH 30.5 31.6 31.0 MCHC 32.1 33.1 32.5 RDW 14.2 14.0 13.6 PLT 216 223 283 MPV 11.1 10.4 10.0 BMP: Recent Labs 06/24/22 0554 06/24/22 2031 06/25/22 0630 NA 137 137 139 K 3.9 3.8 3.7 CL 101 99 101 CO2 BUN 52* 39* 41* CREATININE 5.19* 4.24* 4.65* GLUCOSE 203* 191* 205* CALCIUM 8.8 8.3* 8.9 BNP:No results found for: BNP PHOSPHORUS: No results for input(s): PHOS in the last 72 hours. MAGNESIUM: Recent Labs 06/23/22 0551 06/24/22 0554 06/25/22 0630 MG 1.8 1.8 1.9 ALBUMIN: No results for input(s): LABALBU in the last 72 hours. IRON: No results found for: IRON IRON SATURATION: No results found for: LABIRON TIBC: No results found for: TIBC FERRITIN: No results found for: FERRITIN AMY: No results found for: AMY SPEP: Lab Results Component Value Date/Time PROT 7.8 06/20/2022 03:31 AM ALBCAL 3.4 05/28/2022 08:45 PM ALBPCT 51 05/28/2022 08:45 PM LABALPH 0.3 05/28/2022 08:45 PM LABALPH 1.1 05/28/2022 08:45 PM A1PCT 4 05/28/2022 08:45 PM A2PCT 16 05/28/2022 08:45 PM LABBETA 0.9 05/28/2022 08:45 PM BETAPCT 14 05/28/2022 08:45 PM GAMGLOB 1.0 05/28/2022 08:45 PM GGPCT 15 05/28/2022 08:45 PM PATH ELECTRONICALLY SIGNED. KUSUM VILLAFANA M.D. 06/21/2022 09:35 PM UPEP: Lab Results Component Value Date/Time TPU 187 06/21/2022 09:35 PM TPU 187 06/21/2022 09:35 PM HEPBSAG: Lab Results Component Value Date/Time HEPBSAG NONREACTIVE 06/21/2022 02:32 PM HEPCAB: Lab Results Component Value Date/Time HEPCAB NONREACTIVE 06/21/2022 02:32 PM C3: Lab Results Component Value Date C3 167 06/21/2022 C4: Lab Results Component Value Date C4 58 (H) 06/21/2022 MPO ANCA: No results found for: MPO . PR3 ANCA: No results found for: PR3 URINE SODIUM: Lab Results Component Value Date/Time KYLAH 41 06/21/2022 09:35 PM URINE POTASSIUM: Lab Results Component Value Date/Time KUR 19.1 06/21/2022 09:35 PM URINE CHLORIDE: No results found for: CLU URINE PH: No components found for: PO4U URINE OSMOLARITY: Lab Results Component Value Date/Time OSMOU 361 06/21/2022 09:35 PM URINE CREATININE: Lab Results Component Value Date/Time LABCREA 99.0 06/21/2022 09:35 PM URINE EOSINOPHILS: No components found for: EOSU URINE PROTEIN: Lab Results Component Value Date/Time TPU 187 06/21/2022 09:35 PM TPU 187 06/21/2022 09:35 PM URINALYSIS: U/A: Lab Results Component Value Date/Time NITRU NEGATIVE 06/20/2022 08:30 AM COLORU [place] 06/20/2022 08:30 AM PHUR 5.5 06/20/2022 08:30 AM WBCUA 5 TO 10 06/20/2022 08:30 AM RBCUA TOO NUMEROUS TO COUNT 06/20/2022 08:30 AM BACTERIA FEW 06/20/2022 08:30 AM SPECGRAV 1.010 06/20/2022 08:30 AM LEUKOCYTESUR SMALL 06/20/2022 08:30 AM UROBILINOGEN Normal 06/20/2022 08:30 AM BILIRUBINUR NEGATIVE 06/20/2022 08:30 AM GLUCOSEU NEGATIVE 06/20/2022 08:30 AM KETUA NEGATIVE 06/20/2022 08:30 AM ANTIGBM:No results found for: GBMABIGG RADIOLOGY Reviewed as available. ASSESSMENT 1. Acute Kidney Injury: Nonoliguric secondary to ATIN (complicated UTI) - dialysis dependent 4.65<<4.24<<5.19<<5.25<<5.19<<5.13<<4.70; nonoliguric urine output with blood-tinged urine and Carballo in place. 2. High anion gap metabolic acidosis secondary to acute kidney injury-resolved 3. Hyponatremia -combination of appropriate (volume depletion) and inappropriate (infection) ADH excess- resolved 4. Chronic kidney disease stage IIIb secondary to diabetic nephrosclerosis with baseline creatininelikely 2.1-2.3 5. 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 History of left hydronephrosis recently with urological surgical intervention and stent placement last month 7. Type II DM has been on Farxiga at home 8. Complicated UTI/pyelonephritis post stent placement PLAN Initiated HD yesterday. Will dialyze again today. Dialysis orders reviewed with nurse. Continue antibiotics as per GFR<15. Avoid nephrotoxin. Continue on renal diet. We will follow. Please do not hesitate to call with questions. Angel Frazier MD, MPH, PGY-2 Internal Medicine Resident [place], [place] Attending Physician Statement I have discussed the care of Steven Walden, including pertinent history and exam findings, with the Fellow/Residentt. I have reviewed the [place] elements of all parts of the encounter with the Fellow/ Resident. I agree with the assessment, plan and orders as documented by the resident. Ace Hanson MD MD, MRCP (), FACP 06/25/2022 10:25 AM [facility] * Albertina Pitts RN - 06/24/2022 6:26 PM EDT Dialysis Post Treatment Note Vitals: 06/24/22 1745 BP: (!) 144/81 Pulse: 84 Resp: 20 Temp: 97.9 F (36.6 C) SpO2: 94% Pre-Weight = 154kg Post-weight = Weight: (!) 339 lb 11.7 oz (154.1 kg) Total Liters Processed = Blood Volume Processed (Liters): 26.51 l/min Rinseback Volume (mL) = Rinseback Volume (ml): 280 ml Net Removal (mL) = No UF Patient's dry weight= Not established Type of access used= CVC Right Length of luxjaqvhs=542 Pt completed 1st tx with no fluid removal. Pt c/o trouble breathing in the last 30 mins of tx with O2 sat of 91%. Hooked to O2 @ 2Lpm via NC with positive effect. No O2 support needed post rinse back. No other complication noted. Cefepime given. Report given to floor nurse. Returned to room per stretcher. * Albertina Pitts RN - 06/24/2022 3:42 PM EDT Dialysis Time Out To be done by RN and tech or 2 RNs Staff Names Albertina Hernandez RN & Lakisha Morris RN [x] Identity of the patient using 2 patient identifiers [x] Consent for treatment [x] Equipment-proper machine and dialyzer [x] B-Hep B status [x] Orders- to include bath, blood flow, dialyzer, time and fluid removal [x] Access-Correct site and in working order [x] Time for patient to ask questions. * Allegra Scherer MD - 06/24/2022 2:10 PM EDT Images from the original note were not included. 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 Emphysematous cystitis-strep low count bandemia Bilateral nonobstructive kidney stones Diabetes mellitus, CKD 3, obesity Discussion / summary of stay / plan of care Recommendations BC neg Zosyn then switch to Zyvox from vancomycin 06/22 stop Zyvox and Zosyn and start cefepime 2 g QHD till 07/06 - reconsield to treat the Streptococcus growing in the urine 06/24 ok for tunneled HD cath Ok for DC Infection Control Recommendations [place] Precautions Contact Isolation Antimicrobial Stewardship Recommendations Simplification of therapy Targeted therapy History of Present Illness: Initial history: Steven Walden is a 62 y.o.-year-old male presents with a left flank pain, dysuria, as well as fever ongoing for 3 days, in the ER CT scan of the abdomen suggest of a emphysematous cystitis through air in the bladder, as well as left pyelonephritis, with a stent in the left ureter, no hydronephrosis but ureteral stones. Blood cultures and urine culture were sent, ID consult placed due to emphysematous pyelonephritis Patient is diabetic, his white count is 12, creatinine clearance 36, he does have a fever of 38.3 today. Interval changes 06/24/2022 Patient Vitals for the past 8 hrs: BP Temp Temp src Pulse Resp SpO2 06/24/22 0808 137/84 97.8 F (36.6 C) Oral 71 18 92 % 06/21 LGF, Tmax 100.9. Pt currently on Zyvox and Zosyn. BC NGTD, Ucx neg. Still bladder pain - Carballo bloody Looks better and no fever 06/22 Afebrile, vitals stable. Pt carballo has bloody output. Pt states his bladder pain is worse compared to yesterday but denies dysuria today. 06/24 Afebrile, vitals stable. Pt on ceftriaxone. No pain supra pubic area - seen in HD and had a R IJ QMthis am placed Summary of relevant labs: Labs: WBC 12.7 - 8 - 8.7 - 9.7 - 10.1 CRP 111 Micro: Blood culture [id number] Urine culture 06/20 strep Imaging: CT abdomen and pelvis 06/20 Left ureteral stent in place, 3 mm distal left ureteral calculus, no left hydro- Perinephric and periureteral stranding on the left suggestive of infection, gas in the bladder concerning for emphysematous cystitis Nonobstructive bilateral renal calculi Chest x-ray negative CT head negative I have personally reviewed the past medical history, past surgical history, medications, social history, and family history, and I haveupdated the database accordingly. Allergies: Patient has no known allergies. Review of Systems: Review of Systems Constitutional: Negative for activity change, chills and fever. HENT: Negative for congestion. Eyes: Negative for pain, discharge and redness. Respiratory: Negative for apnea and cough. Cardiovascular: Negative for chest pain. Gastrointestinal: Negative for abdominal distention and abdominal pain. Endocrine: Negative for cold intolerance. Genitourinary: Negative for dysuria and flank pain. Musculoskeletal: Negative for arthralgias. Skin: Negative for color change. Allergic/Immunologic: Negative for food allergies. Neurological: Negative for dizziness, tremors, syncope and headaches. Hematological: Negative for adenopathy. Psychiatric/Behavioral: Negative for agitation. Physical Examination : Physical Exam Constitutional: General: He is not in acute distress. Appearance: Normal appearance. He is not ill-appearing, toxic-appearing or diaphoretic. HENT: Head: Normocephalic and atraumatic. Nose: Nose normal. No congestion. Mouth/Throat: Mouth: Mucous membranes are moist. Eyes: Pupils: Pupils are equal, round, and reactive to light. Cardiovascular: Rate and Rhythm: Normal rate and regular rhythm. Heart sounds: Normal heart sounds. No murmur heard. Pulmonary: Effort: Pulmonary effort is normal. No respiratory distress. Breath sounds: Normal breath sounds. No stridor. No wheezing or rhonchi. Abdominal: General: There is no distension. Palpations: Abdomen is soft. Tenderness: There is no abdominal tenderness. There is no guarding. Genitourinary: Comments: Carballo Musculoskeletal: General: No swelling, tenderness, deformity or signs of injury. Cervical back: Neck supple. No rigidity or tenderness. Skin: General: Skin is warm and dry. Coloration: Skin is not jaundiced. Neurological: General: No focal deficit present. Mental Status: He is alert and oriented to person, place, and time. Psychiatric: Mood and Affect: Mood normal. Thought Content: Thought content normal. 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, neuropathy and CKD stage 3 Gout Hyperlipidemia Hypertension 2000 Major depressive disorder Morbid obesity (HCC) Neuropathy SHADE (obstructive sleep apnea) 2003 Peptic ulcer disease 2018 Duodenal Ulcer Past Surgical History: Past Surgical History: Procedure Laterality Date CHOLECYSTECTOMY 2011 CYSTOSCOPY Left 05/28/2022 CYSTOSCOPY, URETERAL STENT INSERTION, URETHRAL DILATION performed by Kevin Myles MD at [facility] OR HAND SURGERY Right 12/2021 Medications: insulin glargine 20 Units SubCUTAneous Nightly cefTRIAXone (ROCEPHIN) IV 2,000 mg IntraVENous Q24H senna 1 tablet Oral Nightly polyethylene glycol 17 g Oral Daily bisacodyl 10 mg Rectal Daily heparin (porcine) 5,000 Units SubCUTAneous 3 times per day allopurinol 100 mg Oral Daily atorvastatin 20 mg Oral Nightly budesonide-formoterol 2 puff Inhalation BID lamoTRIgine 200 mg Oral Daily mirtazapine 30 mg Oral Nightly pantoprazole 40 mg Oral QAM AC propranolol 20 mg Oral TID tamsulosin 0.4 mg Oral Daily venlafaxine 150 mg Oral Daily sodium chloride flush 5-40 mL IntraVENous 2 times per day insulin lispro 0-8 Units SubCUTAneous TID WC insulin lispro 0-4 Units SubCUTAneous Nightly Social History: Social History Socioeconomic History Marital status: Spouse name: Not on file Number of children: Not on file Years of education: Not on file Highest education level: Not on file Occupational History Not on file Tobacco Use Smoking status: Never Smokeless tobacco: Never Substance and Sexual Activity Alcohol use: Yes Comment: less than 6 beers annually Drug use: Not on file Sexual activity: Not on file Other Topics Concern Not on file Social History Narrative Unemployed Social Determinants of Health Financial Resource Strain: Not on file Food Insecurity: Not on file Transportation Needs: Not on file Physical Activity: Not on file Stress: Not on file Social Connections: Not on file Intimate Partner Violence: Not on file Housing Stability: Not on file Family History: Family History Problem Relation Age of Onset Heart Disease Mother pacer Cancer Sister 58 Kidney Medical Decision Making: I have independently reviewed/ordered the following labs: CBC with Differential: Recent Labs 06/23/22 0551 06/24/22 0554 WBC 9.7 10.1 HGB 11.7* 11.9* HCT 36.4* 35.9* PLT 216 223 BMP: Recent Labs 06/23/22 0551 06/23/22 1407 06/24/22 0554 NA 136 135 137 K 4.5 4.2 3.9 CL 100 99 101 CO2 20 22 22 BUN 53* -- 52* CREATININE 5.25* -- 5.19* MG 1.8 -- 1.8 Hepatic Function Panel: No results for input(s): PROT, LABALBU, BILIDIR, IBILI, BILITOT, ALKPHOS, ALT, AST in the last 72 hours. No results for input(s): RPR in the last 72 hours. No results for input(s): HIV in the last 72 hours. No results for input(s): BC in the last 72 hours. Lab Results Component Value Date/Time CREATININE 5.19 06/24/2022 05:54 AM GLUCOSE 203 06/24/2022 05:54 AM Detailed results: Thank you for allowing us to participate in the care of this patient.Please call with questions. This note is created with the assistance of a speech recognition program. While intending to generate adocument that actually reflects the content of the visit, the document can still have some errors including those of syntax and sound a like substitutions which may escape proof reading. It such instances, actual meaningcan be extrapolated by contextual diversion. Allegra Scherer MD Office: [facility] / office [phone] I have discussed the care of the patient, including pertinent history and exam findings, with the resident. I have seen and examined the patient and the [place] elements of all parts of the encounter have been performed by me. I agree with the assessment, plan and orders as documented by the resident. Allegra Scherer, Infectious Diseases * Toshia Bui, OT - 06/24/2022 1:09 PM EDT Occupational Therapy Facility/Department: [address] ONC/MED SURG Occupational Therapy Initial Assessment Name: Steven Walden : 1960 Date of Service: 06/24/2022 Chief Complaint Patient presents with Fall Fever Flank Pain Discharge Recommendations: Patient would benefit from continued therapy after discharge OT Equipment Recommendations Equipment Needed: Yes Mobility Devices: ADL Assistive Devices ADL Assistive Devices: Toileting - Drop Arm Commode, Heavy Duty Drop Arm Commode;Land Reclamation Specialist Patient Diagnosis(es): The primary encounter diagnosis was Acute kidney injury superimposed on CKD (HCC). A diagnosis of Pyelonephritis was also pertinent to this visit. Past Medical History: has a past medical history of Anxiety, Chronic kidney disease, Congenital heart defect, Diabetes mellitus (HCC), Gout, Hyperlipidemia, Hypertension, Major depressive disorder, Morbid obesity (HCC), Neuropathy, SHADE (obstructive sleep apnea), and Peptic ulcer disease. Past Surgical History: has a past surgical history that includes Cholecystectomy (2010); Hand surgery (Right, 12/2021); and Cystoscopy (Left, 05/28/2022). Assessment Performance deficits / Impairments: Decreased ADL status;Decreased functional mobility ;Decreased safe awareness;Decreased high-level IADLs;Decreased strength;Decreased cognition;Decreased balance;Decreased endurance;Decreased coordination;Decreased posture;Decreased fine motor control Assessment: Patient demonstrates bed mobility at CGA to sit EOB to engage in static seated tasks. Pt completed functional transfer/mobility using RW at Min A - CGA for transfers, demo decreased strength and balance impacting performance and safety in standing tasks and functional mobility tasks. Ptcompleted sinkside ADLs and toileting tasks with increased time, demonstrates decreased standing tolerance and SOB with engagment in functional activity. Patient would benefit from continued acute OTservices to address functional deficits through skilled intervention impacting performance and safety with ADLs/IADLs. Prognosis: Good Decision Making: Medium Complexity REQUIRES OT FOLLOW-UP: Yes Activity Tolerance Activity Tolerance: Patient limited by fatigue Plan Occupational Therapy Plan Times Per Week: 3-4x/wk Current Treatment Recommendations: Strengthening, Balance training, Functional mobility training, Endurance training, Patient/Caregiver education & training, Safety education & training, Self-Care / ADL, Home management training, Equipment evaluation, education, & procurement Restrictions Restrictions/Precautions Restrictions/Precautions: Fall Risk Required Braces or Orthoses?: No Position Activity Restriction Other position/activity restrictions: amb pt.; up w/assist Subjective General Patient assessed for rehabilitation services?: Yes Family / Caregiver Present: No General Comment Comments: RN ok'd patient for OT session. Pt pleasant, cooperative and agreeable. Pt reports 2/10 pain in B ankles and declined intervention from therapist. OT provided repositioning and elevation with good return. Social/Functional History Social/Functional History Lives With: Spouse Type of Home: House Home Layout: One level Home Access: Stairs to enter with rails Entrance Stairs - Number of Steps: 8 Entrance Stairs - Rails: Right Bathroom Shower/Tub: Walk-in shower, Shower chair with back, Curtain Bathroom Toilet: Standard Bathroom Equipment: Shower chair Bathroom Accessibility: Walker accessible Home Equipment: Cane ADL Assistance: Independent Homemaking Assistance: Independent Homemaking Responsibilities: Yes (Shares with ) Meal Prep Responsibility: Secondary Laundry Responsibility: Secondary Cleaning Responsibility: Secondary Shopping Responsibility: Secondary Ambulation Assistance: Independent Transfer Assistance: Independent Active Scada Operator: No Mode of Transportation: Van, Family Occupation: On disability 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 Objective Safety Devices Type of Devices: Left in chair;Nurse notified;Gait belt;Call light within reach;Heels elevated for pressure relief Restraints Restraints Initially in Place: No Balance Sitting: Intact (SBA grossly seated EOB statically; ~10-11 min; on toilet ~6-7 min and supported inrecliner) Standing: With support (~4 min standing to complete sinkside ADL tasks and ~2 min for personal hygiene tasks with unilateral release from RW) Transfer Training Transfer Training: Yes Overall Level of Assistance: Minimum assistance Interventions: Verbal cues;Safety awareness training (hand placement for transfers and appropriate use of RW for functional mobility) Sit to Stand: Minimum assistance Stand to Sit: Contact-guard assistance Toilet Transfer: Contact-guard assistance (std toilet with use of B GBs) Gait Overall Level of Assistance: Contact-guard assistance Interventions: Verbal cues;Safety awareness training Assistive Device: Gait belt;Walker, rolling (EOB > bathroom > chair > toilet > chair) AROM: Within functional limits Strength: Within functional limits Coordination: Generally decreased, functional (decreased speed with small tremors in digits; noted edema in B hands) Tone: Normal Sensation: Impaired (reports numbness and tingling in B feet) ADL Feeding: Modified independent Grooming: Stand by assistance;Setup;Verbal cueing;Increased time to complete UE Bathing: Increased time to complete;Setup;Verbal cueing;Stand by assistance LE Bathing: Moderate assistance;Setup;Verbal cueing;Increased time to complete UE Dressing: Increased time to complete;Verbal cueing;Setup;Stand by assistance LE Dressing: Moderate assistance;Setup;Verbal cueing;Increased time to complete Toileting: Minimal assistance;Increased time to complete;Setup Additional Comments: Patient completed functional mobility to bathroom to stand sinkside and complete washing face and oral care, unable to tolerate >5 min of standing tolerance d/t SOB and fatigue; Pt slow moving and required SBA to safely complete grooming tasks with cues. Pt required rest break and then engaged in toileting tasks and gown change at SBA with cues to complete task fully. Pt required Min A for thorough personal hygiene on backside with VCs for task completion. Pt required VCfor washing face seated on toilet and for rinsing mouth, requiring assistance for grasping and utilizing supplies appropriately. Bed mobility Supine to Sit: Contact guard assistance Scooting: Contact guard assistance Bed Mobility Comments: Increased time to complete; retired to bedside recliner at end of session Vision Vision: Impaired Vision Exceptions: Wears glasses at all times Hearing Hearing: Within functional limits Cognition Overall Cognitive Status: Exceptions Arousal/Alertness: Delayed responses to stimuli Following Commands: Follows multistep commands with repitition;Follows multistep commands with increased time Attention Span: Attends with cues to redirect Problem Solving: Decreased awareness of errors Insights: Decreased awareness of deficits Initiation: Does not require cues Sequencing: Does not require cues Orientation Orientation Level: Oriented to place;Oriented to situation;Disoriented to time;Oriented to person Education Given To: Patient Education Provided: Role of Therapy;Plan of Care;Energy Conservation;Fall Prevention Strategies;Precautions;ADL Adaptive Strategies;Transfer Training;Equipment Education Method: Verbal Education Outcome: Verbalized understanding;Continued education needed Hand Dominance Hand Dominance: Right AM-[facility] Score AM-[facility] Inpatient Daily Activity Raw Score: 17 (06/24/22 1310) -[facility] Inpatient ADL T-Scale Score : 37.26 (06/24/22 1310) ADL Inpatient [facility] 0-100% Score: 50.11 (06/24/22 1310) ADL Inpatient [facility] G-Code Modifier : CK (06/24/221309) Goals Short Term Goals Time Frame for Short Term Goals: Patient will, by discharge Short Term Goal 1: demo UB ADLs independently Short Term Goal 2: demo LB ADLs using AE PRN at CGA Short Term Goal 3: demo toileting tasks at SBA using AE PRN Short Term Goal 4: demo functional transfers/mobility using LRAD at supervision to engage in ADLs Short Term Goal 5: demo 10+ min of dynamic standing tolerance at SBA to engage in ADLs safely Short Term Goal 6: demo use of EC/WS techs at SBA with x1 VC to reduce exertion with functional tasks Short Term Goal 7: verbalize 3+ fall prevention strategies to implement into home environment to engage in ADLs safely Therapy Time Individual Concurrent Group Co-treatment Time In 1027 Time Out 1109 Minutes 42 Timed Code Treatment Minutes: 38 Minutes Toshia Bui OTR/L * Ace Hanson MD - 06/24/2022 8:24 AM EDT Nephrology Progress Note SUBJECTIVE Patient was seen at bedside and chart reviewed. No acute events overnight. Patient remained afebrile and hemodynamically stable. Urine output: 1.8 L/24 hours Patient has a Carballo's catheter in place. Labs reviewed: Sodium 137, potassium 3.9, bicarb 22, BUN 52<53; creatinine 5.19<<5.25; mag1.8; calcium 8.8 WBC 10.1, hemoglobin 11.9; platelets 223 HPI: 62-year-old male with a PMH significant of type II DM, diagnosed 15 years ago with vision compromise (no diagnosis of retinopathy), A1c has been fluctuating between 7 and 11 according to his family, CKD stage III, used to follow up at [facility] nephrology, has not seen retort loader in the last 6 years, with unknown baseline creatinine, chronic lower extremity edema, morbid obesity (BMI 41.5),essential hypertension, remote history of nephrolithiasis. He presented with fever, chills and left-sided flank pain days prior to presentation on 06/20/2022. Patient also had apparently a fall at home. Patient was recently admitted in May for an obstructing stone and solitary working kidney, urology had placed stent and Carballo was placed with intraoperative dilation. Patient now has gross hematuria. Patient was supposed to follow-up in 2 weeks with urology for definitive stone treatment however patient did not follow-up. Patient was found to have emphysematous cystitis. Patient was taking Farxiga on discharge. OBJECTIVE CURRENT TEMPERATURE: Temp: 97.8 F (36.6 C) MAXIMUM TEMPERATURE OVER 24HRS: Temp (24hrs), Av.8 F (36.6 C), Min:97.3 F (36.3 C), Max:98.1 F (36.7 C) CURRENT RESPIRATORY RATE: Resp: 18 CURRENT PULSE: Heart Rate: 71 CURRENT BLOOD PRESSURE: BP: 137/84 24HR BLOOD PRESSURE RANGE: Systolic (24hrs), Av , Min:121 , Max:143 ; Diastolic (24hrs), Av, Min:76, Max:86 24HR INTAKE/OUTPUT: Intake/Output Summary (Last 24 hours) at 06/24/2022 0825 Last data filed at 06/24/2022 0617 Gross per 24 hour Intake 600 ml Output 1830 ml Net -1230 ml PHYSICAL EXAM General: AAO x 3, HEENT: Atraumatic, normocephalic. Eyes: Normal conjunctiva, no icterus Neck: No JVD, no accessory muscle use, midline trachea Chest: Good bilateral air entry and clear to auscultation bilaterally and symmetrically with no wheezes or rales or rhonchi Cardiac: S1 S2 audible. No S3. Abdomen: Obese and soft and not tender not distended with active bowel sounds : No suprapubic or flank tenderness. Carballo in place with blood-tinged urine Neuro: AAO x 3, No FND. No asterixis or clonus SKIN: No rashes, good skin turgor. Extremities: Mild peripheral edema, no cyanosis CURRENT MEDICATIONS insulin glargine (LANTUS) injection vial 20 Units, Nightly cefTRIAXone (ROCEPHIN) 2,000 mg in sterile water 20 mL IV syringe, Q24H senna (SENOKOT) tablet 8.6 mg, Nightly polyethylene glycol (GLYCOLAX) packet 17 g, Daily bisacodyl (DULCOLAX) suppository 10 mg, Daily sodium bicarbonate 75 mEq in sodium chloride 0.45 % 1,000 mL infusion, Continuous heparin (porcine) injection 5,000 Units, 3 times per day albuterol sulfate HFA (PROVENTIL;VENTOLIN;PROAIR) 108 (90 Base) MCG/ACT inhaler 2 puff, Q6H PRN allopurinol (ZYLOPRIM) tablet 100 mg, Daily atorvastatin (LIPITOR) tablet 20 mg, Nightly budesonide-formoterol (SYMBICORT) 80-4.5 MCG/ACT inhaler 2 puff, BID lamoTRIgine (LAMICTAL) tablet 200 mg, Daily mirtazapine (REMERON) tablet 30 mg, Nightly pantoprazole (PROTONIX) tablet 40 mg, QAM AC propranolol (INDERAL) tablet 20 mg, TID tamsulosin (FLOMAX) capsule 0.4 mg, Daily venlafaxine (EFFEXOR XR) extended release capsule 150 mg, Daily sodium chloride flush 0.9 % injection 5-40 mL, 2 times per day sodium chloride flush 0.9 % injection 5-40 mL, PRN 0.9 % sodium chloride infusion, PRN ondansetron (ZOFRAN-ODT) disintegrating tablet 4 mg, Q8H PRN Or ondansetron (ZOFRAN) injection 4 mg, Q6H PRN acetaminophen (TYLENOL) tablet 650 mg, Q6H PRN Or acetaminophen (TYLENOL) suppository 650 mg, Q6H PRN insulin lispro (HUMALOG) injection vial 0-8 Units, TID WC insulin lispro (HUMALOG) injection vial 0-4 Units, Nightly glucose chewable tablet 16 g, PRN dextrose bolus 10% 125 mL, PRN Or dextrose bolus 10% 250 mL, PRN glucagon (rDNA) injection 1 mg, PRN dextrose 10 % infusion, Continuous PRN lidocaine (XYLOCAINE) 2 % uro-jet, PRN oxyCODONE (ROXICODONE) immediate release tablet 5 mg, Q4H PRN LABS CBC: Recent Labs 06/22/22 0643 06/23/22 0551 06/24/22 0554 WBC 8.7 9.7 10.1 RBC 3.93* 3.83* 3.77* HGB 12.0* 11.7* 11.9* HCT 36.9* 36.4* 35.9* MCV 93.9 95.0 95.2 MCH 30.5 30.5 31.6 MCHC 32.5 32.1 33.1 RDW 14.0 14.2 14.0 PLT 163 216 223 MPV 10.9 11.1 10.4 BMP: Recent Labs 06/22/22 2110 06/23/22 0551 06/23/22 1407 06/24/22 0554 NA 133* 136 135 137 K 4.5 4.5 4.2 3.9 CL 99 100 99 101 CO2 21 20 22 22 BUN 53* 53* -- 52* CREATININE 5.19* 5.25* -- 5.19* GLUCOSE 280* 249* -- 203* CALCIUM 8.5* 8.8 -- 8.8 BNP:No results found for: BNP PHOSPHORUS: Recent Labs 06/21/22 0830 06/22/22 0643 PHOS 4.1 5.2* MAGNESIUM: Recent Labs 06/22/22 2110 06/23/22 0551 06/24/22 0554 MG 1.8 1.8 1.8 ALBUMIN: Recent Labs 06/21/22 0830 LABALBU 3.0* IRON: No results found for: IRON IRON SATURATION: No results found for: LABIRON TIBC: No results found for: TIBC FERRITIN: No results found for: FERRITIN AMY: No results found for: AMY SPEP: Lab Results Component Value Date/Time PROT 7.8 06/20/2022 03:31 AM ALBCAL 3.4 05/28/2022 08:45 PM ALBPCT 51 05/28/2022 08:45 PM LABALPH 0.3 05/28/2022 08:45 PM LABALPH 1.1 05/28/2022 08:45 PM A1PCT 4 05/28/2022 08:45 PM A2PCT 16 05/28/2022 08:45 PM LABBETA 0.9 05/28/2022 08:45 PM BETAPCT 14 05/28/2022 08:45 PM GAMGLOB 1.0 05/28/2022 08:45 PM GGPCT 15 05/28/2022 08:45 PM PATH ELECTRONICALLY SIGNED. KUSUM VILLAFANA M.D. 06/21/2022 09:35 PM UPEP: Lab Results Component Value Date/Time TPU 187 06/21/2022 09:35 PM TPU 187 06/21/2022 09:35 PM HEPBSAG: Lab Results Component Value Date/Time HEPBSAG NONREACTIVE 06/21/2022 02:32 PM HEPCAB: Lab Results Component Value Date/Time HEPCAB NONREACTIVE 06/21/2022 02:32 PM C3: Lab Results Component Value Date C3 167 06/21/2022 C4: Lab Results Component Value Date C4 58 (H) 06/21/2022 MPO ANCA: No results found for: MPO . PR3 ANCA: No results found for: PR3 URINE SODIUM: Lab Results Component Value Date/Time KYLAH 41 06/21/2022 09:35 PM URINE POTASSIUM: Lab Results Component Value Date/Time KUR 19.1 06/21/2022 09:35 PM URINE CHLORIDE: No results found for: CLU URINE PH: No components found for: PO4U URINE OSMOLARITY: Lab Results Component Value Date/Time OSMOU 361 06/21/2022 09:35 PM URINE CREATININE: Lab Results Component Value Date/Time LABCREA 99.0 06/21/2022 09:35 PM URINE EOSINOPHILS: No components found for: EOSU URINE PROTEIN: Lab Results Component Value Date/Time TPU 187 06/21/2022 09:35 PM TPU 187 06/21/2022 09:35 PM URINALYSIS: U/A: Lab Results Component Value Date/Time NITRU NEGATIVE 06/20/2022 08:30 AM COLORU [place] 06/20/2022 08:30 AM PHUR 5.5 06/20/2022 08:30 AM WBCUA 5 TO 10 06/20/2022 08:30 AM RBCUA TOO NUMEROUS TO COUNT 06/20/2022 08:30 AM BACTERIA FEW 06/20/2022 08:30 AM SPECGRAV 1.010 06/20/2022 08:30 AM LEUKOCYTESUR SMALL 06/20/2022 08:30 AM UROBILINOGEN Normal 06/20/2022 08:30 AM BILIRUBINUR NEGATIVE 06/20/2022 08:30 AM GLUCOSEU NEGATIVE 06/20/2022 08:30 AM KETUA NEGATIVE 06/20/2022 08:30 AM ANTIGBM:No results found for: GBMABIGG RADIOLOGY Reviewed as available. ASSESSMENT 1. Acute Kidney Injury: Nonoliguric secondary to ATIN (complicated UTI) plateauing renal function. Cr 5.19<<5.25<<5.19<<5.13<<4.70; The patient's creatinine appears to have plateaued around 5.2 and still unchanged today nonoliguricurine output with blood-tinged urine and Carballo in place. 2. High anion gap metabolic acidosis secondary to acute kidney injury-resolved 3. Hyponatremia -combination of appropriate (volume depletion) and inappropriate (infection) ADH excess- resolved 4. Chronic kidney disease stage IIIb secondary to diabetic nephrosclerosis with baseline creatininelikely 2.1-2.3 5. 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 History of left hydronephrosis recently with urological surgical intervention and stent placement last month 7. Type II DM has been on Farxiga at home 8. Complicated UTI/pyelonephritis post stent placement PLAN #1 exhibiting uremic symptoms of easy fatigability/asthenia/poor p.o. Will initiate hemodialysis. This has been discussed with him in the past and is verbalized understanding and willing to proceed #2 continue IV fluids #3 antibiotics as per GFR less than 15 Please do not hesitate to call with questions. Angel Frazier MD, MPH, PGY-2 Internal Medicine Resident [facility], [place], [place] Attending Physician Statement I have discussed the care of Steven Walden, including pertinent history and exam findings, with the Fellow/Residentt. I have reviewed the [place] elements of all parts of the encounter with the Fellow/ Resident. I agree with the assessment, plan and orders as documented by the resident. Ace Hanson MD MD, MRCP (), FACP 06/24/2022 12:03 PM [facility] * Sheyla Viveros MD - 06/24/2022 7:25 AM EDT Images from the original note were not included. [facility] Office: [phone] Chris Osman DO, Terrence Johns DO, Stefani Augustin DO, Jaspreet Mosley DO, Surekha Batista MD, Adrienne Means MD, Rosales Singh MD, Caitlyn Benz MD, Abdoul Camargo MD, Cathy Farooq MD, Chepe Cordova DO, Love Hess MD, Deja Guevara DO, April Girard MD, Arvin Maya MD, Jessica Osman DO, Shima Watson MD, Raphael Connor MD, Jerome Simon DO, Yoselyn Thakkar MD, Codi Self MD, Gilda Sousa MD, Sheyla Viveros MD, Vikki Adorno MD, Jarocho Real DO, Krishan Vogt MD, Radha William MD, Shaunna Freitas, KARINA, Prabha Hauser CNP, Shirlene Dacosta CNP, Favian Ji, KARINA, Yesenia Espino, TEJINDER, Ema Mason, KARINA, Calista Mendez, HOUSE MOVING SUPERVISOR, Gunjan Ruiz, HOUSE MOVING SUPERVISOR, Sharon Barry, HOUSE MOVING SUPERVISOR, Sri Weiner, HOUSE MOVING SUPERVISOR, MEGAN SosaC, Carleen Paiz, [facility], Catie Cheema, KARINA, Chelsea Kulkarni, KARINA [facility] IN-PATIENT SERVICE [facility] Progress Note 06/24/2022 7:25 AM Name: Steven Walden Acct: [id number] Room: 0438/0438-01 Day: 4 Admit Date: 06/20/2022 1:58 AM PCP: Darion Randle MD Code Status: Full Code Subjective: C/C: Chief Complaint Patient presents with Fall Fever Flank Pain Interval History Status: Improved Hemodynamically stable. Saturating well on room air. Creatinine 5.19 that is plateaued. Mild uremic symptoms present. Plan to initiate hemodialysis. Brief History: 62 year old male with ps tmedicla history of CKD stage III, Diabetes, HTN, HLD, Obesity, presents with left sided flank pain and fevers and chills for the past 3 days. Patient found to have emphasematus cystitis. Urology and ID following.. Patient was initially on Zyvox and Zosyn for UTI later switched to Rocephin.. Her kidney function continue to worsen and then plateaued. He was continued on bicarb drip. He started having mild uremic symptoms. Hemodialysis was initiated. Review of Systems: Constitutional: negative for chills, fevers, sweats Respiratory: negative for cough, dyspnea on exertion, shortness of breath, wheezing Cardiovascular: negative for chest pain, chest pressure/discomfort, lower extremity edema, palpitations Gastrointestinal: negative for abdominal pain, constipation, diarrhea, nausea, vomiting Neurological: Has mild tremors. Negative for dizziness, headache Medications: Allergies: No Known Allergies Current Meds: Scheduled Meds: insulin glargine 20 Units SubCUTAneous Nightly cefTRIAXone (ROCEPHIN) IV 2,000 mg IntraVENous Q24H senna 1 tablet Oral Nightly polyethylene glycol 17 g Oral Daily bisacodyl 10 mg Rectal Daily heparin (porcine) 5,000 Units SubCUTAneous 3 times per day allopurinol 100 mg Oral Daily atorvastatin 20 mg Oral Nightly budesonide-formoterol 2 puff Inhalation BID lamoTRIgine 200 mg Oral Daily mirtazapine 30 mg Oral Nightly pantoprazole 40 mg Oral QAM AC propranolol 20 mg Oral TID tamsulosin 0.4 mg Oral Daily venlafaxine 150 mg Oral Daily sodium chloride flush 5-40 mL IntraVENous 2 times per day insulin lispro 0-8 Units SubCUTAneous TID WC insulin lispro 0-4 Units SubCUTAneous Nightly Continuous Infusions: IV infusion builder 75 mL/hr at 06/23/22 1755 sodium chloride dextrose PRN Meds: albuterol sulfate HFA, sodium chloride flush, sodium chloride, ondansetron OR ondansetron, acetaminophen OR acetaminophen, glucose, dextrose bolus OR dextrose bolus, glucagon (rDNA), dextrose, lidocaine, oxyCODONE Data: Past Medical History: has a past medical history of Anxiety, Chronic kidney disease, Congenital heart defect, Diabetes mellitus (HCC), Gout, Hyperlipidemia, Hypertension, Major depressive disorder, Morbid obesity (HCC), Neuropathy, SHADE (obstructive sleep apnea), and Peptic ulcer disease. Social History: reports that he has never smoked. He has never used smokeless tobacco. He reports current alcohol use. Family History: Family History Problem Relation Age of Onset Heart Disease Mother pacer Cancer Sister 58 Kidney Vitals: BP (!) 143/86 Pulse 77 Temp 97.7 F (36.5 C) (Oral) Resp 18 Ht 6' 5 (1.956 m) Wt (!) 353 lb 6.4 oz (160.3 kg) SpO2 92% BMI 41.91 kg/m Temp (24hrs), Av F (36.7 C), Min:97.3 F (36.3 C), Max:98.8 F (37.1 C) Recent Labs 06/23/22 1144 06/23/22 1610 06/23/228 06/24/22 0648 POCGLU 237* 242* 238* 186* I/O (24Hr): Intake/Output Summary (Last 24 hours) at 06/24/2022 0725 Last data filed at 06/24/2022 0617 Gross per 24 hour Intake 600 ml Output 1830 ml Net -1230 ml Labs: Hematology: Recent Labs 06/21/22 0830 06/22/22 0643 06/23/22 0551 06/24/22 0554 WBC 8.0 8.7 9.7 10.1 RBC 4.92 3.93* 3.83* 3.77* HGB 15.2 12.0* 11.7* 11.9* HCT 43.7 36.9* 36.4* 35.9* MCV 88.8 93.9 95.0 95.2 MCH 30.9 30.5 30.5 31.6 MCHC 34.8 32.5 32.1 33.1 RDW 13.7 14.0 14.2 14.0 PLT 147 163 216 223 MPV 10.4 10.9 11.1 10.4 CRP 163.6* -- 111.5* -- Chemistry: Recent Labs 06/21/22 0830 06/21/22 1432 06/22/22 0643 06/22/22 2110 06/23/22 0551 06/23/22 1407 06/24/22 0554 NA 126* < > 133* 133* 136 135 137 K 5.1 < > 4.3 4.5 4.5 4.2 3.9 CL 93* < > 98 99 100 99 101 CO2 16* < > 20 21 20 22 22 GLUCOSE 283* < > 284* 280* 249* -- 203* BUN 51* < > 53* 53* 53* -- 52* CREATININE 4.50* < > 5.19* 5.19* 5.25* -- 5.19* MG 1.7 -- 1.8 1.8 1.8 -- 1.8 ANIONGAP 17 < > 15 13 16 14 14 LABGLOM 14* < > 12* 12* 12* -- 12* CALCIUM 8.6 < > 8.5* 8.5* 8.8 -- 8.8 PHOS 4.1 -- 5.2* -- -- -- -- < > = values in this interval not displayed. Recent Labs 06/21/22 0830 06/21/22 1121 06/23/22 0006 06/23/22 0712 06/23/22 1144 06/23/22 1610 06/23/228 06/24/22 0648 LABALBU 3.0* -- -- -- -- -- -- -- POCGLU -- < > 239* 240* 237* 242* 238* 186* < > = values in this interval not displayed. ABG:No results found for: POCPH, PHART, PH, POCPCO2, TVR5HST, PCO2, POCPO2, PO2ART, PO2, POCHCO3, MIU9GRD, HCO3, NBEA, PBEA, BEART, BE, THGBART, THB, [id number], [id number], [id number], O2SAT, FIO2 Lab Results Component Value Date/Time SPECIAL RAC 10ML 06/20/2022 03:51 AM Lab Results Component Value Date/Time CULTURE 06/20/2022 08:28 AM NO SIGNIFICANT GROWTH Identified as : VIRIDANS STREPTOCOCCUS GROUP <[id number] CFU/ML Radiology: CT ABDOMEN PELVIS WO CONTRAST Additional Contrast? None Result Date: 06/20/2022 1. Left ureteral stent in place with a 3 mm distal left ureteral calculus. No significant left hydronephrosis however there is perinephric and periureteral stranding suggestive of superimposed infection/inflammation. 2. 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 3. Nonobstructing bilateral renal calculi. CT HEAD WO CONTRAST Result Date: 06/20/2022 No acute intracranial abnormality. XR CHEST PORTABLE Result Date: 06/20/2022 No acute cardiopulmonary findings. Physical Examination: General appearance: alert, cooperative and no distress Mental Status: oriented to person, place and time and normal affect Lungs: clear to auscultation bilaterally, normal effort Heart: regular rate and rhythm, no murmur Abdomen: soft, nontender, nondistended, normal bowel sounds, no masses, hepatomegaly, splenomegaly Extremities: no edema, redness, tenderness in the calves Skin: no gross lesions, rashes, induration Neuro- positive for mild tremors. Assessment: Hospital Problems Last Modified POA * (Principal) DAISY (acute kidney injury) ([facility]) 06/20/2022 Yes Acute kidney injury superimposed on CKD ([facility]) 06/20/2022 Yes Chronic kidney disease 06/20/2022 Yes Type 2 diabetes mellitus with stage 3a chronic kidney disease (HCC) 06/20/2022 Yes Hyperlipidemia 06/20/2022 Yes Primary hypertension 06/20/2022 Yes Left ureteral stone 06/20/2022 Yes BRITTANY (generalized anxiety disorder) 06/20/2022 Yes Major depressive disorder, recurrent, moderate (HCC) 06/20/2022 Yes Bandemia 06/20/2022 Yes Pyelonephritis of left kidney 06/20/2022 Yes 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 Non oliguric secondary to ATN(complicated UTI)-renal function plateaued.. Discussed with nephrology. Plan to initiate hemodialysis since patient is exhibiting mild uremic symptoms now. Appreciate nephrology recommendations. CKD stage IIIb-baseline 2.0-2.2 Emphysematous cystitis-started on Rocephin. Appreciate ID recommendations. Nephrolithiasis status post stent placement 05/28/2022- Plans for lithotripsy 06/29/2022 after activeinfection is resolved. Appreciate urology recommendations. Episode of sinus tachycardia-likely from electrolyte abnormalities. Evaluated by cardiology. Continue to monitor. Obstructive sleep apnea-uses CPAP at night. Morbid obesity-lifestyle changes Type 2 diabetes-insulin sliding scale. Hypoglycemia protocol. POCT glucose checks. Depression-on Lamictal and Effexor and Remeron. Tremors-on propanolol. Outpatient neurology follow-up. DVT prophylaxis-subcu heparin GI prophylaxis-on Protonix Discharge planning-PT OT following. schedule manager to follow. Sheyla Viveros MD 06/24/2022 7:25 AM * Meseret Ballard MD - 06/23/2022 2:39 PM EDT Nephrology Progress Note SUBJECTIVE Patient was seen at bedside and chart reviewed. Patient is seen for acute on chronic kidney injury with baseline creatinine in the 2 to 2.2 mg/dL range. Creatinine is stable but not improved at 5.2 today. No acute events overnight. Patient feels well. Mild swelling. Carballo catheter is in place with blood-tinged urine. IV fluids are running at 125 mL an hour with bicarbonate containing solution. Serum creatinine is essentially unchanged at 5.2. Repeat electrolytes show sodium 135 potassium 4.2 chloride 99 and CO2 22 from this afternoon. Intake and output shows 3 L in and 1.7 L out yesterday.- He reported improvement with abdominal pain. His appetite is low. Denies shortness of breath, chest pain. Denies any muscle twitching. Does have resting tremor even prior to this event. Planning to see neurology have some suspicion of Parkinson disease. CT scan of the head shows no acute abnormality on this admission. No confusion or loss of memory. Able to hold conversation. No chest pains or shortness of breath. Creatinine appears to be plateauing in the 5.1-5.2 range. -ID following: Continue on Zyvox and Zosyn per ID Hepatitis panel nonreactive Urine studies: osmolarity 361; sodium 41; total protein 187; HPI: 62-year-old male with a PMH significant of type II DM, diagnosed 15 years ago with vision compromise (no diagnosis of retinopathy), A1c has been fluctuating between 7 and 11 according to his family, CKD stage III, used to follow up at [facility] nephrology, has not seen retort loader in the last 6 years, with unknown baseline creatinine, chronic lower extremity edema, morbid obesity (BMI 41.5),essential hypertension, remote history of nephrolithiasis. He presented with fever, chills and left-sided flank pain days prior to presentation on 06/20/2022. Patient also had apparently a fall at home. Patient was recently admitted in May for an obstructing stone and solitary working kidney, urology had placed stent and Carballo was placed with intraoperative dilation. Patient now has gross hematuria. Patient was supposed to follow-up in 2 weeks with urology for definitive stone treatment however patient did not follow-up. Patient was found to have emphysematous cystitis. Patient was taking Farxiga on discharge. OBJECTIVE CURRENT TEMPERATURE: Temp: 98.8 F (37.1 C) MAXIMUM TEMPERATURE OVER 24HRS: Temp (24hrs), Av F (36.7 C), Min:97.5 F (36.4 C), Max:98.8 F (37.1 C) CURRENT RESPIRATORY RATE: Resp: 24 CURRENT PULSE: Heart Rate: 95 CURRENT BLOOD PRESSURE: BP: 126/88 24HR BLOOD PRESSURE RANGE: Systolic (24hrs), Av , Min:122 , Max:126 ; Diastolic (24hrs), Av, Min:70, Max:90 24HR INTAKE/OUTPUT: Intake/Output Summary (Last 24 hours) at 06/23/2022 1440 Last data filed at 06/23/2022 1200 Gross per 24 hour Intake 3000 ml Output 2400 ml Net 600 ml PHYSICAL EXAM General: AAO x 3, HEENT: Atraumatic, normocephalic. Eyes: Normal conjunctiva, no icterus Neck: No JVD, no accessory muscle use, midline trachea Chest: Good bilateral air entry and clear to auscultation bilaterally and symmetrically with no wheezes or rales or rhonchi Cardiac: S1 S2 audible. No S3. Abdomen: Obese and soft and not tender not distended with active bowel sounds : No suprapubic or flank tenderness. Carballo in place with blood-tinged urine Neuro: AAO x 3, No FND. No asterixis or clonus SKIN: No rashes, good skin turgor. Extremities: Mild peripheral edema, no cyanosis CURRENT MEDICATIONS insulin glargine (LANTUS) injection vial 20 Units, Nightly cefTRIAXone (ROCEPHIN) 2,000 mg in sterile water 20 mL IV syringe, Q24H senna (SENOKOT) tablet 8.6 mg, Nightly polyethylene glycol (GLYCOLAX) packet 17 g, Daily bisacodyl (DULCOLAX) suppository 10 mg, Daily sodium bicarbonate 75 mEq in sodium chloride 0.45 % 1,000 mL infusion, Continuous heparin (porcine) injection 5,000 Units, 3 times per day albuterol sulfate HFA (PROVENTIL;VENTOLIN;PROAIR) 108 (90 Base) MCG/ACT inhaler 2 puff, Q6H PRN allopurinol (ZYLOPRIM) tablet 100 mg, Daily atorvastatin (LIPITOR) tablet 20 mg, Nightly budesonide-formoterol (SYMBICORT) 80-4.5 MCG/ACT inhaler 2 puff, BID lamoTRIgine (LAMICTAL) tablet 200 mg, Daily mirtazapine (REMERON) tablet 30 mg, Nightly pantoprazole (PROTONIX) tablet 40 mg, QAM AC propranolol (INDERAL) tablet 20 mg, TID tamsulosin (FLOMAX) capsule 0.4 mg, Daily venlafaxine (EFFEXOR XR) extended release capsule 150 mg, Daily sodium chloride flush 0.9 % injection 5-40 mL, 2 times per day sodium chloride flush 0.9 % injection 5-40 mL, PRN 0.9 % sodium chloride infusion, PRN ondansetron (ZOFRAN-ODT) disintegrating tablet 4 mg, Q8H PRN Or ondansetron (ZOFRAN) injection 4 mg, Q6H PRN acetaminophen (TYLENOL) tablet 650 mg, Q6H PRN Or acetaminophen (TYLENOL) suppository 650 mg, Q6H PRN insulin lispro (HUMALOG) injection vial 0-8 Units, TID WC insulin lispro (HUMALOG) injection vial 0-4 Units, Nightly glucose chewable tablet 16 g, PRN dextrose bolus 10% 125 mL, PRN Or dextrose bolus 10% 250 mL, PRN glucagon (rDNA) injection 1 mg, PRN dextrose 10 % infusion, Continuous PRN lidocaine (XYLOCAINE) 2 % uro-jet, PRN oxyCODONE (ROXICODONE) immediate release tablet 5 mg, Q4H PRN LABS CBC: Recent Labs 06/21/22 0830 06/22/22 0643 06/23/22 0551 WBC 8.0 8.7 9.7 RBC 4.92 3.93* 3.83* HGB 15.2 12.0* 11.7* HCT 43.7 36.9* 36.4* MCV 88.8 93.9 95.0 MCH 30.9 30.5 30.5 MCHC 34.8 32.5 32.1 RDW 13.7 14.0 14.2 PLT 147 163 216 MPV 10.4 10.9 11.1 BMP: Recent Labs 06/22/22 0643 06/22/22 2110 06/23/22 0551 06/23/22 1407 NA 133* 133* 136 135 K 4.3 4.5 4.5 4.2 CL 98 99 100 99 CO2 20 21 20 22 BUN 53* 53* 53* -- CREATININE 5.19* 5.19* 5.25* -- GLUCOSE 284* 280* 249* -- CALCIUM 8.5* 8.5* 8.8 -- BNP:No results found for: BNP PHOSPHORUS: Recent Labs 06/21/22 0830 06/22/22 0643 PHOS 4.1 5.2* MAGNESIUM: Recent Labs 06/22/22 0643 06/22/22 2110 06/23/22 0551 MG 1.8 1.8 1.8 ALBUMIN: Recent Labs 06/21/22 0830 LABALBU 3.0* IRON: No results found for: IRON IRON SATURATION: No results found for: LABIRON TIBC: No results found for: TIBC FERRITIN: No results found for: FERRITIN AMY: No results found for: AMY SPEP: Lab Results Component Value Date/Time PROT 7.8 06/20/2022 03:31 AM ALBCAL 3.4 05/28/2022 08:45 PM ALBPCT 51 05/28/2022 08:45 PM LABALPH 0.3 05/28/2022 08:45 PM LABALPH 1.1 05/28/2022 08:45 PM A1PCT 4 05/28/2022 08:45 PM A2PCT 16 05/28/2022 08:45 PM LABBETA 0.9 05/28/2022 08:45 PM BETAPCT 14 05/28/2022 08:45 PM GAMGLOB 1.0 05/28/2022 08:45 PM GGPCT 15 05/28/2022 08:45 PM PATH PENDING 06/21/2022 09:35 PM UPEP: Lab Results Component Value Date/Time TPU 187 06/21/2022 09:35 PM TPU 187 06/21/2022 09:35 PM HEPBSAG: Lab Results Component Value Date/Time HEPBSAG NONREACTIVE 06/21/2022 02:32 PM HEPCAB: Lab Results Component Value Date/Time HEPCAB NONREACTIVE 06/21/2022 02:32 PM C3: Lab Results Component Value Date C3 167 06/21/2022 C4: Lab Results Component Value Date C4 58 (H) 06/21/2022 MPO ANCA: No results found for: MPO . PR3 ANCA: No results found for: PR3 URINE SODIUM: Lab Results Component Value Date/Time KYLAH 41 06/21/2022 09:35 PM URINE POTASSIUM: Lab Results Component Value Date/Time KUR 19.1 06/21/2022 09:35 PM URINE CHLORIDE: No results found for: CLU URINE PH: No components found for: PO4U URINE OSMOLARITY: Lab Results Component Value Date/Time OSMOU 361 06/21/2022 09:35 PM URINE CREATININE: Lab Results Component Value Date/Time LABCREA 99.0 06/21/2022 09:35 PM URINE EOSINOPHILS: No components found for: EOSU URINE PROTEIN: Lab Results Component Value Date/Time TPU 187 06/21/2022 09:35 PM TPU 187 06/21/2022 09:35 PM URINALYSIS: U/A: Lab Results Component Value Date/Time NITRU NEGATIVE 06/20/2022 08:30 AM COLORU [place] 06/20/2022 08:30 AM PHUR 5.5 06/20/2022 08:30 AM WBCUA 5 TO 10 06/20/2022 08:30 AM RBCUA TOO NUMEROUS TO COUNT 06/20/2022 08:30 AM BACTERIA FEW 06/20/2022 08:30 AM SPECGRAV 1.010 06/20/2022 08:30 AM LEUKOCYTESUR SMALL 06/20/2022 08:30 AM UROBILINOGEN Normal 06/20/2022 08:30 AM BILIRUBINUR NEGATIVE 06/20/2022 08:30 AM GLUCOSEU NEGATIVE 06/20/2022 08:30 AM KETUA NEGATIVE 06/20/2022 08:30 AM ANTIGBM:No results found for: GBMABIGG RADIOLOGY Reviewed as available. ASSESSMENT 1. Acute Kidney Injury: Nonoliguric secondary to ATIN (complicated UTI) now oliguric-worsening renal function. Cr 5.19<<5.13<<4.70; The patient's creatinine appears to have plateaued around 5.2 and still unchanged today nonoliguricurine output with blood-tinged urine and Carballo in place 2. High anion gap metabolic acidosis secondary to acute kidney injury- Improving 3. Hyponatremia -combination of appropriate (volume depletion) and inappropriate (infection) ADH excess- improving, resolved 4. Chronic kidney disease stage IIIb secondary to diabetic nephrosclerosis with baseline creatininelikely 2.1-2.3 5. 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 History of left hydronephrosis recently with urological surgical intervention and stent placement last month 7. Type II DM has been on Farxiga at home 8. Complicated UTI/pyelonephritis post stent placement PLAN Decrease rate on bicarbonate containing IV fluids to 75 mL an hour hold diuretics Continue antibiotics as per EGFR less than 15 Avoid nephrotoxin No evidence of postinfectious GN but high risk of needing dialysis. Explained to him. He verbalized understanding and willing to proceedif needed. We will hold off at present as creatinine appears to be plateauing and urine output continues to be excellent. Only uremic symptom is change in taste with a metallic taste with the patientstates even water tastes bad. No signs of volume overload. No hyperkalemia and serum bicarbonate within normal limits on bicarbonate containing IV fluids Check BMP daily Please do not hesitate to call with questions. * Sheyla Viveros MD - 06/23/2022 8:44 AM EDT Images from the original note were not included. [facility] Office: [phone] Chris Osman DO, Terrence Johns DO, Stefani Augustin DO, Jaspreet Mosley DO, Surekha Batista MD, Adrienne Means MD, Rosales Singh MD, Caitlyn Benz MD, Abdoul Camargo MD, Cathy Farooq MD, Chepe CordovaDO, Love Hess MD, Deja Guevara DO, April Girard MD, Arvin Maya MD, Jessica Osman DO, Shima Watson MD, Raphael oCnnor MD, Jerome Simon DO, Yoselyn Thakkar MD, Codi Self MD, Gilda Sousa MD, Sheyla Viveros MD, Vikki Adorno MD, Jarocho Real DO, Krishan Vogt MD, Radha William MD, Shaunna Freitas CNP, Prabha Hauser CNP, Shirlene Dacosta CNP, Favian Ji CNP, Yesenia Espino DNP, Ema Mason CNP, Calista Mendez CNP, Gunjan Ruiz, HOUSE MOVING SUPERVISOR, Sharon Barry, HOUSE MOVING SUPERVISOR, Sri Weiner, HOUSE MOVING SUPERVISOR, Gillian Valles PA-C, Carleen Paiz, SARA, Catie Cheema CNP, Chelsea Kulkarni, KARINA [facility] IN-PATIENT SERVICE [facility] Progress Note 06/23/2022 8:44 AM Name: Steven Walden Acct: [id number] Room: Day: 3 Admit Date: 06/20/2022 1:58 AM PCP: Darion Randle MD Code Status: Full Code Subjective: C/C: Chief Complaint Patient presents with Fall Fever Flank Pain Interval History Status: Unchanged. Overnight rapid response was called when patient had an episode of tachycardia with heart rate 140sand going up to 220. EKG showed normal sinus rhythm With no other acute changes.. Responded to Lopressor. This morning he was hemodynamically stable. Saturating well on room air. Creatinine 5.25 today plateaued. Denied any current complaints. Continued on Rocephin. U/O is good. Using CPAP at night. Brief History: 62 year old male with ps tmedicla history of CKD stage III, Diabetes, HTN, HLD, Obesity, presents with left sided flank pain and fevers and chills for the past 3 days. Patient found to have emphasematus cystitis. Urology and ID following.. Patient was initially on Zyvox and Zosyn for UTI later switched to Rocephin.. Her kidney function continue to worsen and then plateaued. He was continued on bicarb drip. Patient and family was explained about being at high risk for hemodialysis. Nephrology following. Review of Systems: Constitutional: negative for chills, fevers, sweats Respiratory: negative for cough, dyspnea on exertion, shortness of breath, wheezing Cardiovascular: negative for chest pain, chest pressure/discomfort, lower extremity edema, palpitations Gastrointestinal: negative for abdominal pain, constipation, diarrhea, nausea, vomiting Neurological: Has mild tremors. Negative for dizziness, headache Medications: Allergies: No Known Allergies Current Meds: Scheduled Meds: cefTRIAXone (ROCEPHIN) IV 2,000 mg IntraVENous Q24H insulin glargine 15 Units SubCUTAneous Nightly senna 1 tablet Oral Nightly polyethylene glycol 17 g Oral Daily bisacodyl 10 mg Rectal Daily heparin (porcine) 5,000 Units SubCUTAneous 3 times per day allopurinol 100 mg Oral Daily atorvastatin 20 mg Oral Nightly budesonide-formoterol 2 puff Inhalation BID lamoTRIgine 200 mg Oral Daily mirtazapine 30 mg Oral Nightly pantoprazole 40 mg Oral QAM AC [Held by provider] propranolol 20 mg Oral TID tamsulosin 0.4 mg Oral Daily venlafaxine 150 mg Oral Daily sodium chloride flush 5-40 mL IntraVENous 2 times per day insulin lispro 0-8 Units SubCUTAneous TID WC insulin lispro 0-4 Units SubCUTAneous Nightly Continuous Infusions: IV infusion builder 125 mL/hr at 06/23/22 0249 sodium chloride dextrose PRN Meds: albuterol sulfate HFA, sodium chloride flush, sodium chloride, ondansetron OR ondansetron, acetaminophen OR acetaminophen, glucose, dextrose bolus OR dextrose bolus, glucagon (rDNA), dextrose, lidocaine, oxyCODONE Data: Past Medical History: has a past medical history of Anxiety, Chronic kidney disease, Congenital heart defect, Diabetes mellitus (HCC), Gout, Hyperlipidemia, Hypertension, Major depressive disorder, Morbid obesity (HCC), Neuropathy, SHADE (obstructive sleep apnea), and Peptic ulcer disease. Social History: reports that he has never smoked. He has never used smokeless tobacco. He reports current alcohol use. Family History: Family History Problem Relation Age of Onset Heart Disease Mother pacer Cancer Sister 58 Kidney Vitals: BP 123/70 Pulse 95 Temp 97.9 F (36.6 C) (Oral) Resp 17 Ht 6' 5 (1.956 m) Wt (!) 352 lb 8.3 oz (159.9 kg) SpO2 93% BMI 41.80 kg/m Temp (24hrs), Av.8 F (36.6 C), Min:97.5 F (36.4 C), Max:98 F (36.7 C) Recent Labs 06/22/22 1558 06/22/22 1930 06/23/22 0006 06/23/22 0712 POCGLU 250* 292* 239* 240* I/O (24Hr): Intake/Output Summary (Last 24 hours) at 06/23/2022 0844 Last data filed at 06/23/2022 0600 Gross per 24 hour Intake 3000 ml Output 1700 ml Net 1300 ml Labs: Hematology: Recent Labs 06/21/22 0830 06/22/22 0643 06/23/22 0551 WBC 8.0 8.7 9.7 RBC 4.92 3.93* 3.83* HGB 15.2 12.0* 11.7* HCT 43.7 36.9* 36.4* MCV 88.8 93.9 95.0 MCH 30.9 30.5 30.5 MCHC 34.8 32.5 32.1 RDW 13.7 14.0 14.2 PLT 147 163 216 MPV 10.4 10.9 11.1 CRP 163.6* -- 111.5* Chemistry: Recent Labs 06/21/22 0830 06/21/22 1432 06/22/22 0643 06/22/22 2110 06/23/22 0551 NA 126* < > 133* 133* 136 K 5.1 < > 4.3 4.5 4.5 CL 93* < > 98 99 100 CO2 16* < > 20 21 20 GLUCOSE 283* < > 284* 280* 249* BUN 51* < > 53* 53* 53* CREATININE 4.50* < > 5.19* 5.19* 5.25* MG 1.7 -- 1.8 1.8 1.8 ANIONGAP 17 < > 15 13 16 LABGLOM 14* < > 12* 12* 12* CALCIUM 8.6 < > 8.5* 8.5* 8.8 PHOS 4.1 -- 5.2* -- -- < > = values in this interval not displayed. Recent Labs 06/21/22 0830 06/21/22 1121 06/22/22 0728 06/22/22 1113 06/22/22 1558 06/22/22 1930 06/23/22 0006 06/23/22 0712 LABALBU 3.0* -- -- -- -- -- -- -- POCGLU -- < > 248* 270* 250* 292* 239* 240* < > = values in this interval not displayed. ABG:No results found for: POCPH, PHART, PH, POCPCO2, VJC5GHE, PCO2, POCPO2, PO2ART, PO2, POCHCO3, [id number], HCO3, NBEA, PBEA, BEART, BE, THGBART, THB, [id number], [id number], [id number], O2SAT, FIO2 Lab Results Component Value Date/Time SPECIAL RAC 10ML 06/20/2022 03:51 AM Lab Results Component Value Date/Time CULTURE 06/20/2022 08:28 AM NO SIGNIFICANT GROWTH Identified as : VIRIDANS STREPTOCOCCUS GROUP <[id number] CFU/ML Radiology: CT ABDOMEN PELVIS WO CONTRAST Additional Contrast? None Result Date: 06/20/2022 1. Left ureteral stent in place with a 3 mm distal left ureteral calculus. No significant left hydronephrosis however there is perinephric and periureteral stranding suggestive of superimposed infection/inflammation. 2. 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 3. Nonobstructing bilateral renal calculi. CT HEAD WO CONTRAST Result Date: 06/20/2022 No acute intracranial abnormality. XR CHEST PORTABLE Result Date: 06/20/2022 No acute cardiopulmonary findings. Physical Examination: General appearance: alert, cooperative and no distress Mental Status: oriented to person, place and time and normal affect Lungs: clear to auscultation bilaterally, normal effort Heart: regular rate and rhythm, no murmur Abdomen: soft, nontender, nondistended, normal bowel sounds, no masses, hepatomegaly, splenomegaly Extremities: no edema, redness, tenderness in the calves Skin: no gross lesions, rashes, induration Neuro- positive for mild tremors. Assessment: Hospital Problems Last Modified POA * (Principal) DAISY (acute kidney injury) ([facility]) 06/20/2022 Yes Acute kidney injury superimposed on CKD ([facility]) 06/20/2022 Yes Chronic kidney disease 06/20/2022 Yes Type 2 diabetes mellitus with stage 3a chronic kidney disease ([facility]) 06/20/2022 Yes Hyperlipidemia 06/20/2022 Yes Primary hypertension 06/20/2022 Yes Left ureteral stone 06/20/2022 Yes BRITTANY (generalized anxiety disorder) 06/20/2022 Yes Major depressive disorder, recurrent, moderate ([facility]) 06/20/2022 Yes Bandemia 06/20/2022 Yes Pyelonephritis of left kidney 06/20/2022 Yes 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 oliguric secondary to ATN(complicated UTI)-renal function plateaued.. Continued on bicarb drip. At high risk for hemodialysis. Appreciate nephrology recommendations. CKD stage IIIb-baseline 2.0-2.2 Emphysematous cystitis-started on Rocephin. Appreciate ID recommendations. Nephrolithiasis status post stent placement 05/28/2022- Plans for lithotripsy 06/29/2022 after activeinfection is resolved. Appreciate urology recommendations. Episode of sinus tachycardia-likely from electrolyte abnormalities. Evaluated by cardiology. Continue to monitor. Obstructive sleep apnea-uses CPAP at night. Morbid obesity-lifestyle changes Type 2 diabetes-insulin sliding scale. Hypoglycemia protocol. POCT glucose checks. Depression-on Lamictal and Effexor and Remeron. Tremors-restarted propanolol. Outpatient neurology follow-up. DVT prophylaxis-subcu heparin GI prophylaxis-on Protonix Discharge planning-PT OT eval. schedule manager to follow. Sheyla Viveros MD 06/23/2022 8:44 AM * Ivanna Donahue PT - 06/22/2022 1:12 PM EDT Images from the original note were not included. Physical Therapy Physical Therapy Cancel Note DATE: 06/22/2022 NAME: Steven Walden : 1960 Patient not seen this date for Physical Therapy due to: Other: family member states pt is resting. PT to further attempt tx at later as time allows. * Mane Triplett MD - 06/22/2022 11:17 AM EDT Nephrology Progress Note SUBJECTIVE Patient was seen at bedside and chart reviewed. No acute events overnight. Urine output continues to be excellent, 8200 mL an hour. Today carballo has about 1.2 L of urine sincemorning. - He reported improvement with abdominal pain. His appetite is low. Denies shortness of breath, chest pain. -Continue on IV fluids-bicarb plus half normal saline at 75 mill per hour Denies any muscle twitching. Does have resting tremor even prior to this event. Planning to see neurology have some suspicion of Parkinson disease. No confusion or loss of memory. Able to hold conversation. No chest pains or shortness of breath. Creatinine appears to be plateauing down to 5.1-5.2 range. -ID following: Continue on Zyvox and Zosyn per ID Labs reviewed: Sodium 133<<129; K 4.3; bicarb 20; BUN 53<<50; Cr 5.19<<5.13<&lt ;4.70; mag 1.8, calcium 8.5, Phos 5.2, CRP 163.6; WBC 8.7; hemoglobin 12; platelet 163 Hepatitis panel nonreactive Urine studies: osmolarity 361; sodium 41; total protein 187; HPI: 62-year-old male with a PMH significant of type II DM, diagnosed 15 years ago with vision compromise (no diagnosis of retinopathy), A1c has been fluctuating between 7 and 11 according to his family, CKD stage III, used to follow up at [facility] nephrology, has not seen retort loader in the last 6 years, with unknown baseline creatinine, chronic lower extremity edema, morbid obesity (BMI 41.5),essential hypertension, remote history of nephrolithiasis. He presented with fever, chills and left-sided flank pain days prior to presentation on 06/20/2022. Patient also had apparently a fall at home. Patient was recently admitted in May for an obstructing stone and solitary working kidney, urology had placed stent and Carballo was placed with intraoperative dilation. Patient now has gross hematuria. Patient was supposed to follow-up in 2 weeks with urology for definitive stone treatment however patient did not follow-up. Patient was found to have emphysematous cystitis. Patient was taking Farxiga on discharge. Creatinine OBJECTIVE CURRENT TEMPERATURE: Temp: 98 F (36.7 C) MAXIMUM TEMPERATURE OVER 24HRS: Temp (24hrs), Av.2 F (36.8 C), Min:97.5 F (36.4 C), Max:99.1 F (37.3 C) CURRENT RESPIRATORY RATE: Resp: 24 CURRENT PULSE: Heart Rate: 76 CURRENT BLOOD PRESSURE: BP: 125/83 24HR BLOOD PRESSURE RANGE: Systolic (24hrs), Av , Min:111 , Max:125 ; Diastolic (24hrs), Av, Min:73, Max:83 24HR INTAKE/OUTPUT: Intake/Output Summary (Last 24 hours) at 06/22/2022 1118 Last data filed at 06/22/2022 0443 Gross per 24 hour Intake -- Output 800 ml Net -800 ml PHYSICAL EXAM General: AAO x 3, HEENT: Atraumatic, normocephalic. Eyes: Pupils equal, round and reactive to light, EOMI. Neck: No JVD, no thyromegaly, no lymphadenopathy. Chest: Bilateral vesicular breath sounds, no rales or wheezes. No pericardial friction rub Cardiac: S1 S2 audible. No S3. Abdomen: Soft, non-tender, no masses or organomegaly, BS audible. : No suprapubic or flank tenderness. Neuro: AAO x 3, No FND. No asterixis or clonus SKIN: No rashes, good skin turgor. Extremities: + edema. Sluggish peripheral pulses, no calf tenderness. CURRENT MEDICATIONS senna (SENOKOT) tablet 8.6 mg, Nightly polyethylene glycol (GLYCOLAX) packet 17 g, Daily bisacodyl (DULCOLAX) suppository 10 mg, Daily sodium bicarbonate 75 mEq in sodium chloride 0.45 % 1,000 mL infusion, Continuous heparin (porcine) injection 5,000 Units, 3 times per day albuterol sulfate HFA (PROVENTIL;VENTOLIN;PROAIR) 108 (90 Base) MCG/ACT inhaler 2 puff, Q6H PRN allopurinol (ZYLOPRIM) tablet 100 mg, Daily atorvastatin (LIPITOR) tablet 20 mg, Nightly budesonide-formoterol (SYMBICORT) 80-4.5 MCG/ACT inhaler 2 puff, BID lamoTRIgine (LAMICTAL) tablet 200 mg, Daily mirtazapine (REMERON) tablet 30 mg, Nightly pantoprazole (PROTONIX) tablet 40 mg, QAM AC [Held by provider] propranolol (INDERAL) tablet 20 mg, TID tamsulosin (FLOMAX) capsule 0.4 mg, Daily venlafaxine (EFFEXOR XR) extended release capsule 150 mg, Daily sodium chloride flush 0.9 % injection 5-40 mL, 2 times per day sodium chloride flush 0.9 % injection 5-40 mL, PRN 0.9 % sodium chloride infusion, PRN ondansetron (ZOFRAN-ODT) disintegrating tablet 4 mg, Q8H PRN Or ondansetron (ZOFRAN) injection 4 mg, Q6H PRN acetaminophen (TYLENOL) tablet 650 mg, Q6H PRN Or acetaminophen (TYLENOL) suppository 650 mg, Q6H PRN insulin lispro (HUMALOG) injection vial 0-8 Units, TID WC insulin lispro (HUMALOG) injection vial 0-4 Units, Nightly glucose chewable tablet 16 g, PRN dextrose bolus 10% 125 mL, PRN Or dextrose bolus 10% 250 mL, PRN glucagon (rDNA) injection 1 mg, PRN dextrose 10 % infusion, Continuous PRN lidocaine (XYLOCAINE) 2 % uro-jet, PRN piperacillin-tazobactam (ZOSYN) 2,250 mg in sodium chloride 0.9 % 50 mL IVPB (mini-bag), Q8H oxyCODONE (ROXICODONE) immediate release tablet 5 mg, Q4H PRN linezolid (ZYVOX) IVPB 600 mg, Q12H LABS CBC: Recent Labs 06/20/22 0331 06/21/22 0830 06/22/22 0643 WBC 12.7* 8.0 8.7 RBC 4.51 4.92 3.93* HGB 13.7 15.2 12.0* HCT 42.2 43.7 36.9* MCV 93.6 88.8 93.9 MCH 30.4 30.9 30.5 MCHC 32.5 34.8 32.5 RDW 13.8 13.7 14.0 PLT 199 147 163 MPV 11.1 10.4 10.9 BMP: Recent Labs 06/21/22 1432 06/21/22 2036 06/22/22 0643 NA 126* 129* 133* K 4.3 4.4 4.3 CL 94* 96* 98 CO2 17* 18* 20 BUN 50* 50* 53* CREATININE 4.70* 5.13* 5.19* GLUCOSE 380* 348* 284* CALCIUM 8.1* 8.2* 8.5* BNP:No results found for: BNP PHOSPHORUS: Recent Labs 06/21/22 0830 06/22/22 0643 PHOS 4.1 5.2* MAGNESIUM: Recent Labs 06/21/22 0830 06/22/22 0643 MG 1.7 1.8 ALBUMIN: Recent Labs 06/20/22 0331 06/21/22 0830 LABALBU 3.5 3.0* IRON: No results found for: IRON IRON SATURATION: No results found for: LABIRON TIBC: No results found for: TIBC FERRITIN: No results found for: FERRITIN AMY: No results found for: AMY SPEP: Lab Results Component Value Date/Time PROT 7.8 06/20/2022 03:31 AM ALBCAL 3.4 05/28/2022 08:45 PM ALBPCT 51 05/28/2022 08:45 PM LABALPH 0.3 05/28/2022 08:45 PM LABALPH 1.1 05/28/2022 08:45 PM A1PCT 4 05/28/2022 08:45 PM A2PCT 16 05/28/2022 08:45 PM LABBETA 0.9 05/28/2022 08:45 PM BETAPCT 14 05/28/2022 08:45 PM GAMGLOB 1.0 05/28/2022 08:45 PM GGPCT 15 05/28/2022 08:45 PM PATH PENDING 06/21/2022 09:35 PM UPEP: Lab Results Component Value Date/Time TPU 187 06/21/2022 09:35 PM HEPBSAG: Lab Results Component Value Date/Time HEPBSAG NONREACTIVE 06/21/2022 02:32 PM HEPCAB: Lab Results Component Value Date/Time HEPCAB NONREACTIVE 06/21/2022 02:32 PM C3: Lab Results Component Value Date C3 167 06/21/2022 C4: Lab Results Component Value Date C4 58 (H) 06/21/2022 MPO ANCA: No results found for: MPO . PR3 ANCA: No results found for: PR3 URINE SODIUM: Lab Results Component Value Date/Time KYLAH 41 06/21/2022 09:35 PM URINE POTASSIUM: Lab Results Component Value Date/Time KUR 19.1 06/21/2022 09:35 PM URINE CHLORIDE: No results found for: CLU URINE PH: No components found for: PO4U URINE OSMOLARITY: Lab Results Component Value Date/Time OSMOU 361 06/21/2022 09:35 PM URINE CREATININE: Lab Results Component Value Date/Time LABCREA 99.0 06/21/2022 09:35 PM URINE EOSINOPHILS: No components found for: EOSU URINE PROTEIN: Lab Results Component Value Date/Time TPU 187 06/21/2022 09:35 PM URINALYSIS: U/A: Lab Results Component Value Date/Time NITRU NEGATIVE 06/20/2022 08:30 AM COLORU [place] 06/20/2022 08:30 AM PHUR 5.5 06/20/2022 08:30 AM WBCUA 5 TO 10 06/20/2022 08:30 AM RBCUA TOO NUMEROUS TO COUNT 06/20/2022 08:30 AM BACTERIA FEW 06/20/2022 08:30 AM SPECGRAV 1.010 06/20/2022 08:30 AM LEUKOCYTESUR SMALL 06/20/2022 08:30 AM UROBILINOGEN Normal 06/20/2022 08:30 AM BILIRUBINUR NEGATIVE 06/20/2022 08:30 AM GLUCOSEU NEGATIVE 06/20/2022 08:30 AM KETUA NEGATIVE 06/20/2022 08:30 AM ANTIGBM:No results found for: GBMABIGG RADIOLOGY Reviewed as available. ASSESSMENT 1. Acute Kidney Injury: Nonoliguric secondary to ATIN (complicated UTI) now oliguric-worsening renal function. Cr 5.19<<5.13<<4.70; IR creatinine appears to have plateaued around 5.2 expected to improve. Nonoliguric urine output more than 80 mL an hour. Carballo in place 2. High anion gap metabolic acidosis secondary to acute kidney injury- Improving 3. Hyponatremia -combination of appropriate (volume depletion) and inappropriate (infection) ADH excess- improving, resolved 4. Chronic kidney disease stage IIIb secondary to diabetic nephrosclerosis with baseline creatininelikely 2.1-2.3 5. 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 History of left hydronephrosis recently with urological surgical intervention and stent placement last month 7. Type II DM has been on Farxiga at home 8. Complicated UTI/pyelonephritis post stent placement PLAN Continue IVF bicarb + 0.45 NS @ 75 mL/hr. Hold diuretics continue antibiotics as per EGFR less than 15 Avoid nephrotoxin No evidence of postinfectious GN high risk of needing dialysis. Explained to him. He verbalized understanding and willing to proceedif needed. We will hold off at present as creatinine appears to be plateauing and urine output continues to be excellent. No uremic signs or symptoms. No signs of volume overload. No hyperkalemia no metabolic acidosis. Check BMP daily Please do not hesitate to call with questions. Angel Frazier MD, MPH, PGY-2 Internal Medicine Resident [facility], [place], [place] Patient seen with resident. Known history of chronic kidney disease baseline creatinine now in the 2.0-2.2 range. Recently was in the hospital for left-sided nephrolithiasis and obstructing stone. Underwent stent placement. Had developed acute kidney injury which resolved on admission creatinine was down to 2.0 on discharge. Subsequently presented to the hospital a week later with complaints of fever and chills of 104 F and left-sided flank pain. Patient had restarted Farxiga. On presentation was found to be in acute kidney injury creatinine was 3.8 which is now gone up to 5.2. Fortunately continues to be nonoliguric after Carballo was placed. Urine is dark in color. IV antibiotics continue. Urine culture positive for viridans Streptococcus. Blood cultures negative. Hemodynamically stop stable. Labs today showed a potassium of 4.3 sodium 133 BUN 53 creatinine 5.2 bicarb 20. Clinically no asterixis or clonus, no signs of volume overload Plan 1. Continue Carballo 2. Continue IV fluids 3. Expect renal function to recover 4. If creatinine continues to rise or he develop symptoms and signs of uremia will initiate renal replacement therapy same was discussed with him 5. We will follow Attending Physician Statement I have discussed the care of Steven Walden, including pertinent history and exam findings with the resident/fellow. I have reviewed the [place] elements of all parts of the encounter with the resident/fellow. I have seen and examined the patient with the resident/fellow. I agree with the assessment and plan and status of the problem list as documented. . 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 Emphysematous cystitis-strep low count bandemia Bilateral nonobstructive kidney stones Diabetes mellitus, CKD 3, obesity Discussion / summary of stay / plan of care Recommendations Pending blood cultures and urine culture continue Zosyn, switch to Zyvox from vancomycin 06/22 stop Zyvox and Zosyn and start ceftriaxone to treat the Streptococcus growing in the urine Discussed with daughter and patient Adjust antibiotics to final cultures- disc w daughter Infection Control Recommendations [place] Precautions Contact Isolation Antimicrobial Stewardship Recommendations Simplification of therapy Targeted therapy History of Present Illness: Initial history: Steven Walden is a 62 y.o.-year-old male presents with a left flank pain, dysuria, as well as fever ongoing for 3 days, in the ER CT scan of the abdomen suggest of a emphysematous cystitis through air in the bladder, as well as left pyelonephritis, with a stent in the left ureter, no hydronephrosis but ureteral stones. Blood cultures and urine culture were sent, ID consult placed due to emphysematous pyelonephritis Patient is diabetic, his white count is 12, creatinine clearance 36, he does have a fever of 38.3 today. Interval changes 06/22/2022 Patient Vitals for the past 8 hrs: BP Temp Temp src Pulse Resp SpO2 06/22/22 0723 125/83 98 F (36.7 C) Oral 92 -- 94 % 06/22/22 0558 -- -- -- -- 24 -- 06/22/22 0230 -- -- -- -- 21 -- 06/21 LGF, Tmax 100.9. Pt currently on Zyvox and Zosyn. BC NGTD, Ucx neg. Still bladder pain - Carballo bloody Looks better and no fever / Afebrile, vitals stable. Pt carballo has bloody output. Pt states his bladder pain is worse compared to yesterday but denies dysuria today. Summary of relevant labs: Labs: WBC 12.7 - 8 - 8.7 Micro: Blood culture X23/12 Urine culture 06/20 Imaging: CT abdomen and pelvis 06/20 Left ureteral stent in place, 3 mm distal left ureteral calculus, no left hydro- Perinephric and periureteral stranding on the left suggestive of infection, gas in the bladder concerning for emphysematous cystitis Nonobstructive bilateral renal calculi Chest x-ray negative CT head negative I have personally reviewed the past medical history, past surgical history, medications, social history, and family history, and I haveupdated the database accordingly. Allergies: Patient has no known allergies. Review of Systems: Review of Systems Constitutional: Negative for activity change, chills and fever. HENT: Negative for congestion. Eyes: Negative for pain, discharge and redness. Respiratory: Negative for apnea and cough. Cardiovascular: Negative for chest pain. Gastrointestinal: Negative for abdominal distention and abdominal pain. Endocrine: Negative for cold intolerance. Genitourinary: Positive for dysuria and flank pain. Musculoskeletal: Negative for arthralgias. Skin: Negative for color change. Allergic/Immunologic: Negative for food allergies. Neurological: Negative for dizziness, tremors, syncope and headaches. Hematological: Negative for adenopathy. Psychiatric/Behavioral: Negative for agitation. Physical Examination : Physical Exam Constitutional: Appearance: Normal appearance. He is not ill-appearing, toxic-appearing or diaphoretic. HENT: Head: Normocephalic and atraumatic. Nose: Nose normal. No congestion. Mouth/Throat: Mouth: Mucous membranes are moist. Eyes: Pupils: Pupils are equal, round, and reactive to light. Cardiovascular: Rate and Rhythm: Normal rate and regular rhythm. Heart sounds: Normal heart sounds. No murmur heard. Pulmonary: Effort: Pulmonary effort is normal. No respiratory distress. Breath sounds: Normal breath sounds. No stridor. No wheezing or rhonchi. Abdominal: General: There is no distension. Palpations: Abdomen is soft. Tenderness: There is no abdominal tenderness. There is no guarding. Genitourinary: Comments: Carballo Musculoskeletal: General: No swelling, tenderness, deformity or signs of injury. Cervical back: Neck supple. No rigidity. Skin: General: Skin is warm and dry. Coloration: Skin is not jaundiced. Neurological: General: No focal deficit present. Mental Status: He is alert and oriented to person, place, and time. Psychiatric: Mood and Affect: Mood normal. Thought Content: Thought content normal. 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, neuropathy and CKD stage 3 Gout Hyperlipidemia Hypertension 2000 Major depressive disorder Morbid obesity (HCC) Neuropathy SHADE (obstructive sleep apnea) 2002 Peptic ulcer disease 2018 Duodenal Ulcer Past Surgical History: Past Surgical History: Procedure Laterality Date CHOLECYSTECTOMY 2011 CYSTOSCOPY Left 05/28/2022 CYSTOSCOPY, URETERAL STENT INSERTION, URETHRAL DILATION performed by Kevin Myles MD at [facility] OR HAND SURGERY Right 12/2021 Medications: senna 1 tablet Oral Nightly polyethylene glycol 17 g Oral Daily bisacodyl 10 mg Rectal Daily heparin (porcine) 5,000 Units SubCUTAneous 3 times per day allopurinol 100 mg Oral Daily atorvastatin 20 mg Oral Nightly budesonide-formoterol 2 puff Inhalation BID lamoTRIgine 200 mg Oral Daily mirtazapine 30 mg Oral Nightly pantoprazole 40 mg Oral QAM AC [Held by provider] propranolol 20 mg Oral TID tamsulosin 0.4 mg Oral Daily venlafaxine 150 mg Oral Daily sodium chloride flush 5-40 mL IntraVENous 2 times per day insulin lispro 0-8 Units SubCUTAneous TID WC insulin lispro 0-4 Units SubCUTAneous Nightly piperacillin-tazobactam 2,250 mg IntraVENous Q8H linezolid 600 mg IntraVENous Q12H Social History: Social History Socioeconomic History Marital status: Spouse name: Not on file Number of children: Not on file Years of education: Not on file Highest education level: Not on file Occupational History Not on file Tobacco Use Smoking status: Never Smokeless tobacco: Never Substance and Sexual Activity Alcohol use: Yes Comment: less than 6 beers annually Drug use: Not on file Sexual activity: Not on file Other Topics Concern Not on file Social History Narrative Unemployed Social Determinants of Health Financial Resource Strain: Not on file Food Insecurity: Not on file Transportation Needs: Not on file Physical Activity: Not on file Stress: Not on file Social Connections: Not on file Intimate Partner Violence: Not on file Housing Stability: Not on file Family History: Family History Problem Relation Age of Onset Heart Disease Mother pacer Cancer Sister 58 Kidney Medical Decision Making: I have independently reviewed/ordered the following labs: CBC with Differential: Recent Labs 06/20/22 0331 06/21/22 0830 06/22/22 0643 WBC 12.7* 8.0 8.7 HGB 13.7 15.2 12.0* HCT 42.2 43.7 36.9* PLT 199 147 163 LYMPHOPCT 6* -- -- MONOPCT 8 -- -- BMP: Recent Labs 06/21/22 0830 06/21/22 1432 06/21/22 2036 06/22/22 0643 NA 126* < > 129* 133* K 5.1 < > 4.4 4.3 CL 93* < > 96* 98 CO2 16* < > 18* 20 BUN 51* < > 50* 53* CREATININE 4.50* < > 5.13* 5.19* MG 1.7 -- -- 1.8 < > = values in this interval not displayed. Hepatic Function Panel: Recent Labs 06/20/22 0331 06/21/22 0830 PROT 7.8 -- LABALBU 3.5 3.0* BILITOT 0.7 -- ALKPHOS 93 -- ALT 13 -- AST 21 -- No results for input(s): RPR in the last 72 hours. No results for input(s): HIV in the last 72 hours. No results for input(s): BC in the last 72 hours. Lab Results Component Value Date/Time CREATININE 5.19 06/22/2022 06:43 AM GLUCOSE 284 06/22/2022 06:43 AM Detailed results: Thank you for allowing us to participate in the care of this patient.Please call with questions. This note is created with the assistance of a speech recognition program. While intending to generate adocument that actually reflects the content of the visit, the document can still have some errors including those of syntax and sound a like substitutions which may escape proof reading. It such instances, actual meaningcan be extrapolated by contextual diversion. Chela Gonsalves Office: Perfect serve / office [phone] I have discussed the care of the patient, including pertinent history and exam findings, with the resident. I have seen and examined the patient and the [place] elements of all parts of the encounter have been performed by me. I agree with the assessment, plan and orders as documented by the resident. Allegra Scherer, Infectious Diseases * Sheyla Viveros MD - 06/22/2022 8:52 AM EDT Images from the original note were not included. [facility] Office: [phone] Chris Osman DO, Terrence Johns DO, Stefani Augustin DO, Jaspreet Mosley DO, Surekha Batista MD, Adrienne Means MD, Rosales Singh MD, Caitlyn Benz MD, Abdoul Camargo MD, Cathy Farooq MD, Chepe Cordova DO, Love Hess MD, Deja Guevara DO, April Girard MD, Arvin Maya MD, Jessica Osman DO, Shima Watson MD, Raphael Connor MD, Jerome Simon DO, Yoselyn Thakkar MD, Codi Self MD, Gilda Sousa MD, Sheyla Viveros MD, Vikki Adorno MD, Jarocho Real DO, Krishan Vogt MD, Radha William MD, Shaunna Freitas CNP, Prabha Hauser CNP, Shirlene Dacosta CNP, Favian Ji CNP, Yesenia Espino, TEJINDER, Ema Mason, KARINA, Calista Mendez CNP, Gunjan Ruiz CNP, Sharon Barry CNP, Sri Weiner CNP, Gillian Valles PA-C, Carleen Paiz, SOCIAL WORK FACULTY MEMBER, Catie Cheema, HOUSE MOVING SUPERVISOR, Chelsea Kulkarni, HOUSE MOVING SUPERVISOR [facility] IN-PATIENT SERVICE [facility] Progress Note 06/22/2022 8:52 AM Name: Steven Walden Acct: [id number] Room: [facility]7/0317-01 Day: 2 Admit Date: 06/20/2022 1:58 AM PCP: Darion Randle MD Code Status: Full Code Subjective: C/C: Chief Complaint Patient presents with Fall Fever Flank Pain Interval History Status: worsened. Hemodynamically stable. Discussed with daughter and patient about worsening renal function and likely need for hemodialysis. Awaited nephrology recommendations. Continued on antibiotics for UTI. Net -2l since admission Using CPAP at night. Brief History: 62 year old male with ps tmedicla history of CKD stage III, Diabetes, HTN, HLD, Obesity, presents with left sided flank pain and fevers and chills for the past 3 days. Patient found to have emphasematus cystitis. Urology and ID following.. Patient is continued on Zyvox at [facility] for UTI. Her kidney function continue to worsen. He is at high risk for hemodialysis. Consulted nephrology.. Review of Systems: Constitutional: negative for chills, fevers, sweats Respiratory: negative for cough, dyspnea on exertion, shortness of breath, wheezing Cardiovascular: negative for chest pain, chest pressure/discomfort, lower extremity edema, palpitations Gastrointestinal: negative for abdominal pain, constipation, diarrhea, nausea, vomiting Neurological: negative for dizziness, headache Medications: Allergies: No Known Allergies Current Meds: Scheduled Meds: senna 1 tablet Oral Nightly polyethylene glycol 17 g Oral Daily bisacodyl 10 mg Rectal Daily heparin (porcine) 5,000 Units SubCUTAneous 3 times per day allopurinol 100 mg Oral Daily atorvastatin 20 mg Oral Nightly budesonide-formoterol 2 puff Inhalation BID lamoTRIgine 200 mg Oral Daily mirtazapine 30 mg Oral Nightly pantoprazole 40 mg Oral QAM AC [Held by provider] propranolol 20 mg Oral TID tamsulosin 0.4 mg Oral Daily venlafaxine 150 mg Oral Daily sodium chloride flush 5-40 mL IntraVENous 2 times per day insulin lispro 0-8 Units SubCUTAneous TID WC insulin lispro 0-4 Units SubCUTAneous Nightly piperacillin-tazobactam 2,250 mg IntraVENous Q8H linezolid 600 mg IntraVENous Q12H Continuous Infusions: IV infusion builder 125 mL/hr at 06/21/22 1325 sodium chloride dextrose PRN Meds: albuterol sulfate HFA, sodium chloride flush, sodium chloride, ondansetron OR ondansetron, acetaminophen OR acetaminophen, glucose, dextrose bolus OR dextrose bolus, glucagon (rDNA), dextrose, lidocaine, oxyCODONE Data: Past Medical History: has a past medical history of Anxiety, Chronic kidney disease, Congenital heart defect, Diabetes mellitus (HCC), Gout, Hyperlipidemia, Hypertension, Major depressive disorder, Morbid obesity (HCC), Neuropathy, SHADE (obstructive sleep apnea), and Peptic ulcer disease. Social History: reports that he has never smoked. He has never used smokeless tobacco. He reports current alcohol use. Family History: Family History Problem Relation Age of Onset Heart Disease Mother pacer Cancer Sister 58 Kidney Vitals: BP 125/83 Pulse 92 Temp 98 F (36.7 C) (Oral) Resp 24 Ht 6' 5 (1.956 m) Wt (!) 350 lb (158.8 kg) SpO2 94% BMI 41.50 kg/m Temp (24hrs), Av.2 F (36.8 C), Min:97.5 F (36.4 C), Max:99.1 F (37.3 C) Recent Labs 06/21/22 1121 06/21/22 1612 06/21/22202706/22/22 0728 POCGLU 273* 330* 326* 248* I/O (24Hr): Intake/Output Summary (Last 24 hours) at 06/22/2022 0852 Last data filed at 06/22/2022 0443 Gross per 24 hour Intake -- Output 800 ml Net -800 ml Labs: Hematology: Recent Labs 06/20/22 0331 06/21/22 0830 06/22/22 0643 WBC 12.7* 8.0 8.7 RBC 4.51 4.92 3.93* HGB 13.7 15.2 12.0* HCT 42.2 43.7 36.9* MCV 93.6 88.8 93.9 MCH 30.4 30.9 30.5 MCHC 32.5 34.8 32.5 RDW 13.8 13.7 14.0 PLT 199 147 163 MPV 11.1 10.4 10.9 CRP -- 163.6* -- Chemistry: Recent Labs 06/20/22 0331 06/20/22 0429 06/21/22 0830 06/21/22 1432 06/21/22 2036 06/22/22 0643 NA 128* 127* 126* 126* 129* 133* K 4.3 4.3 5.1 4.3 4.4 4.3 CL 92* 93* 93* 94* 96* 98 CO2 19* 15* 16* 17* 18* 20 GLUCOSE 145* 152* 283* 380* 348* 284* BUN 47* 49* 51* 50* 50* 53* CREATININE 3.64* 3.65* 4.50* 4.70* 5.13* 5.19* MG -- -- 1.7 -- -- 1.8 ANIONGAP 17 19* 17 15 15 15 LABGLOM 18* 18* 14* 13* 12* 12* CALCIUM 9.1 9.0 8.6 8.1* 8.2* 8.5* PHOS -- -- 4.1 -- -- 5.2* TROPHS 52* 51* -- -- -- -- Recent Labs 06/20/22 03306/20/22 0905 06/20/22200806/21/22 0707 06/21/22 0830 06/21/22 1121 06/21/22 1612 06/21/22202706/22/22 0728 PROT 7.8 -- -- -- -- -- -- -- -- LABALBU 3.5 -- -- -- 3.0* -- -- -- -- AST 21 -- -- -- -- -- -- -- -- ALT 13 -- -- -- -- -- -- -- -- ALKPHOS 93 -- -- -- -- -- -- -- -- BILITOT 0.7 -- -- -- -- -- -- -- -- POCGLU -- < > 183* 248* -- 273* 330* 326* 248* < > = values in this interval not displayed. ABG:No results found for: POCPH, PHART, PH, POCPCO2, NYE9TMY, PCO2, POCPO2, PO2ART, PO2, POCHCO3, JFC8NRO, HCO3, NBEA, PBEA, BEART, BE, THGBART, THB, [id number], [id number], A8HJSAHA, O2SAT, FIO2 Lab Results Component Value Date/Time SPECIAL RAC 10ML 06/20/2022 03:51 AM Lab Results Component Value Date/Time CULTURE NO SIGNIFICANT GROWTH 06/20/2022 08:28 AM CULTURE Work up all organisms per physician request. 06/20/2022 08:28 AM Radiology: CT ABDOMEN PELVIS WO CONTRAST Additional Contrast? None Result Date: 06/20/2022 1. Left ureteral stent in place with a 3 mm distal left ureteral calculus. No significant left hydronephrosis however there is perinephric and periureteral stranding suggestive of superimposed infection/inflammation. 2. 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 3. Nonobstructing bilateral renal calculi. CT HEAD WO CONTRAST Result Date: 06/20/2022 No acute intracranial abnormality. XR CHEST PORTABLE Result Date: 06/20/2022 No acute cardiopulmonary findings. Physical Examination: General appearance: alert, cooperative and no distress Mental Status: oriented to person, place and time and normal affect Lungs: clear to auscultation bilaterally, normal effort Heart: regular rate and rhythm, no murmur Abdomen: soft, nontender, nondistended, normal bowel sounds, no masses, hepatomegaly, splenomegaly Extremities: no edema, redness, tenderness in the calves Skin: no gross lesions, rashes, induration Assessment: Hospital Problems Last Modified POA * (Principal) DAISY (acute kidney injury) ([facility]) 06/20/2022 Yes Acute kidney injury superimposed on CKD ([facility]) 06/20/2022 Yes Chronic kidney disease 06/20/2022 Yes Type 2 diabetes mellitus with stage 3a chronic kidney disease ([facility]) 06/20/2022 Yes Hyperlipidemia 06/20/2022 Yes Primary hypertension 06/20/2022 Yes Left ureteral stone 06/20/2022 Yes BRITTANY (generalized anxiety disorder) 06/20/2022 Yes Major depressive disorder, recurrent, moderate ([facility]) 06/20/2022 Yes Bandemia 06/20/2022 Yes Pyelonephritis of left kidney 06/20/2022 Yes 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 Nonoliguric secondary to ATN(complicated UTI)-worsening renal function. Continued on bicarb drip. Will likely need hemodialysis at this point. Discussed in details with patient and family. Awaited nephrology recommendations. CKD stage IIIb-baseline 2.1-2.3 Emphysematous cystitis-Continue Zosyn and Zyvox. Appreciate ID recommendations. Nephrolithiasis status post stent placement 05/28/2022- Plans for lithotripsy 06/29/2022 after activeinfection is resolved. Appreciate urology recommendations. Obstructive sleep apnea-uses CPAP at night. Morbid obesity-lifestyle changes Type 2 diabetes-insulin sliding scale. Hypoglycemia protocol. POCT glucose checks. Depression-resumed Lamictal and Effexor. DVT prophylaxis-subcu heparin GI prophylaxis-on Protonix Discharge planning-PT OT eval. schedule manager to follow. Sheyla Viveros MD 06/22/2022 8:52 AM * Fanny Del Rosario, PT - 06/21/2022 12:35 PM EDT Physical Therapy Facility/Department: [facility] RENAL//MED SURG Physical Therapy Initial Assessment Name: Steven Walden : 1960 Date of Service: 06/21/2022 Chief Complaint Patient presents with Fall Fever Flank Pain Discharge Recommendations: Further therapy recommended at discharge. PT Equipment Recommendations Equipment Needed: Yes Mobility Devices: Walker Walker: Rolling Patient Diagnosis(es): The primary encounter diagnosis was Acute kidney injury superimposed on CKD (HCC). A diagnosis of Pyelonephritis was also pertinent to this visit. Past Medical History: has a past medical history of Anxiety, Chronic kidney disease, Congenital heart defect, Diabetes mellitus (HCC), Gout, Hyperlipidemia, Hypertension, Major depressive disorder, Morbid obesity (HCC), Neuropathy, SHADE (obstructive sleep apnea), and Peptic ulcer disease. Past Surgical History: has a past surgical history that includes Cholecystectomy (2010); Hand surgery (Right, 12/2021); and Cystoscopy (Left, 05/28/2022). Assessment Body Structures, Functions, Activity Limitations Requiring Skilled Therapeutic Intervention: Decreased functional mobility ;Decreased endurance;Increased pain;Decreased posture;Decreased balance;Decreased ROM;Decreased strength Assessment: Pt ambulated 8ft with RW Rebekah, requiring modA to perform bed mobility at this time. Pt demonstrates generalized weakness and would be unable to perform stair negotiation at this time which is required at prior living arrangments. Recommending continued skilled physical therapy to address these deficits and maximize independence upon discharge. Therapy Prognosis: Good Decision Making: Medium Complexity Requires PT Follow-Up: Yes Activity Tolerance Activity Tolerance: Patient limited by fatigue;Patient limited by endurance Plan Physcial Therapy Plan General Plan: (5-6x/week) Current Treatment Recommendations: Strengthening, ROM, Balance training, Gait training, Therapeuticactivities, Patient/Caregiver education & training, Transfer training, Endurance training, Equipment evaluation, education, & procurement, Stair training, Functional mobility training Safety Devices Type of Devices: Left in chair, Nurse notified, Gait belt, Chair alarm in place, Call light within reach Restraints Restraints Initially in Place: No Restrictions Restrictions/Precautions Restrictions/Precautions: Fall Risk Required Braces or Orthoses?: No Position Activity Restriction Other position/activity restrictions: amb pt.; up w/assist Subjective General Patient assessed for rehabilitation services?: Yes Response To Previous Treatment: Not applicable Family / Caregiver Present: No Follows Commands: Within Functional Limits General Comment Comments: pt denying pain at time of evaluation Subjective Subjective: RN and pt in agreement for PT eval. Pt supine in bed upon PT arrival, pt with flat affect, however, cooperative throughout session. Social/Functional History Social/Functional History Lives With: Spouse Type of Home: House Home Layout: One level Home Access: Stairs to enter with rails Entrance Stairs - Number of Steps: 8 Entrance Stairs - Rails: Right Bathroom Shower/Tub: Walk-in shower, Shower chair with back, Curtain Bathroom Toilet: Standard Bathroom Equipment: Shower chair Bathroom Accessibility: Walker accessible Home Equipment: Cane ADL Assistance: Independent Homemaking Assistance: Independent Homemaking Responsibilities: Yes (Shares with ) Ambulation Assistance: Independent Transfer Assistance: Independent Active Scada Operator: No Mode of Transportation: Van, Family Occupation: On disability 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 Vision/Hearing Vision Vision: Impaired Vision Exceptions: Wears glasses at all times Hearing Hearing: Within functional limits Cognition Orientation Overall Orientation Status: Within Functional Limits Cognition Overall Cognitive Status: WFL Objective Observation/Palpation Observation: Generalized intention tremor noted of bilateral UE and LE extermities Gross Assessment Sensation: Impaired (chronic numbness/ tingling of bilateral feet) Joint Mobility ROM RLE: WFL ROM LLE: WFL ROM RUE: WFL ROM LUE: WFL Strength RLE Strength RLE: WFL Strength LLE Strength LLE: WFL Strength RUE Strength RUE: WFL Strength LUE Strength LUE: WFL Bed mobility Supine to Sit: Moderate assistance Sit to Supine: (Did not assess- pt seated in bedside chair upon fiction and nonfiction prose writer's exit) Bed Mobility Comments: Assist provided for trunk progression Transfers Sit to Stand: Minimal Assistance Stand to Sit: Minimal Assistance Comment: STS performed with use of RW Ambulation Surface: Level tile Device: Rolling Walker Assistance: Minimal assistance Quality of Gait: Bilateral upper and lower extremity tremor noted throughout session Gait Deviations: Slow Reyna Distance: 8ft More Ambulation?: No Stairs/Curb Stairs?: No Balance Posture: Fair Sitting - Static: Good;- Sitting - Dynamic: Fair;+ Standing - Static: Fair;+ Standing - Dynamic: Fair;- Comments: standing balance assesed with RW; pt able to sit EOB CGA AM-PAC Score AM-PAC Inpatient Mobility Raw Score : 16 (06/21/221233) AM-PAC Inpatient T-Scale Score : 40.78 (06/21/221233) Mobility Inpatient CMS 0-100% Score: 54.16 (06/21/22 [facility]) Mobility Inpatient [facility] G-Code Modifier : CK (06/21/221233) Goals Short Term Goals Time Frame for Short Term Goals: 14 Short Term Goal 1: Pt to perform bed mobility from flat surface CGA Short Term Goal 2: Pt to demonstrate functional transfers independently Short Term Goal 3: Ambulate 300ft w/ no AD independently Short Term Goal 4: Ascend/descend 8 stairs with bilateral rails to simulate home environment independently Patient Goals Patient Goals : To go home Education Patient Education Education Given To: Patient Education Provided: Role of Therapy;Plan of Care Education Method: Demonstration Barriers to Learning: None Education Outcome: Verbalized understanding;Demonstrated understanding Therapy Time Individual Concurrent Group Co-treatment Time In 1021 Time Out 1055 Minutes 34 Timed Code Treatment Minutes: 24 Minutes Fanny Del Rosario PT * Chepe Cordova DO - 06/21/2022 10:30 AM EDT Images from the original note were not included. [facility] Office: [phone] Chris Osman DO, Terrence Johns DO, Stefani Augustin DO, Jaspreet Mosley DO, Surekha Batista MD, Adrienne Means MD, Rosales Singh MD, Caitlyn Benz MD, Abdoul Camargo MD, Cathy Farooq MD, Chepe Cordova DO, Love Hess MD, Deja Guevara DO, April Girard MD, Arvin Maya MD, Jessica Osman DO, Shima Watson MD, Raphael Connor MD, Jerome Simon DO, Yoselyn Thakkar MD, Codi Self MD, Gilda Sousa MD, Sheyla Viveros MD, Vikki Adorno MD, Jarocho Real DO, Krishan Vogt MD, Radha William MD, Shaunna Freitas CNP, Prabha Hauser CNP, Shirlene Dacosta CNP, Favian Ji CNP, Yesenia Espino, TEJINDER, Ema Mason CNP, Calista Mendez CNP, Gunjan Ruiz CNP, Sharon Barry CNP, Sri Weiner CNP, Gillian Valles PA-C, Carleen Paiz, SARA, Catie Cheema, HOUSE MOVING SUPERVISOR, Chelsea Kulkarni, HOUSE MOVING SUPERVISOR [facility] IN-PATIENT SERVICE [facility] Progress Note 06/21/2022 10:30 AM Name: Steven Walden Acct: [id number] Room: 0317/0317-01 IP Day: 1 Admit Date: 06/20/2022 1:58 AM PCP: Darion Randle MD Code Status: Full Code Subjective: C/C: Chief Complaint Patient presents with Fall Fever Flank Pain Interval History Status: worsened. Family at bedside, discussed surgical intervention and worsening kidney function. Consulted nephrology this morning, family was worried regarding urine and blood cultures. They inquired about kidney function to had not resulted yet. Brief History: 62 year old male with ps tmedicla history of CKD stage III, Diabetes, HTN, HLD, Obesity, presents with left sided flank pain and fevers and chills for the past 3 days. Patient found to have emphasematus cystitis. Urology and ID consulted. Review of Systems: Constitutional: negative for chills, fevers, sweats Respiratory: negative for cough, dyspnea on exertion, shortness of breath, wheezing Cardiovascular: negative for chest pain, chest pressure/discomfort, lower extremity edema, palpitations Gastrointestinal: negative for abdominal pain, constipation, diarrhea, nausea, vomiting Neurological: negative for dizziness, headache Medications: Allergies: No Known Allergies Current Meds: Scheduled Meds: senna 1 tablet Oral Nightly polyethylene glycol 17 g Oral Daily bisacodyl 10 mg Rectal Daily allopurinol 100 mg Oral Daily atorvastatin 20 mg Oral Nightly budesonide-formoterol 2 puff Inhalation BID lamoTRIgine 200 mg Oral Daily mirtazapine 30 mg Oral Nightly pantoprazole 40 mg Oral QAM AC [Held by provider] propranolol 20 mg Oral TID tamsulosin 0.4 mg Oral Daily venlafaxine 150 mg Oral Daily sodium chloride flush 5-40 mL IntraVENous 2 times per day enoxaparin 40 mg SubCUTAneous BID insulin lispro 0-8 Units SubCUTAneous TID WC insulin lispro 0-4 Units SubCUTAneous Nightly piperacillin-tazobactam 2,250 mg IntraVENous Q8H linezolid 600 mg IntraVENous Q12H Continuous Infusions: IV infusion builder sodium chloride dextrose PRN Meds: albuterol sulfate HFA, sodium chloride flush, sodium chloride, ondansetron OR ondansetron, acetaminophen OR acetaminophen, glucose, dextrose bolus OR dextrose bolus, glucagon (rDNA), dextrose, lidocaine, oxyCODONE Data: Past Medical History: has a past medical history of Anxiety, Chronic kidney disease, Congenital heart defect, Diabetes mellitus (HCC), Gout, Hyperlipidemia, Hypertension, Major depressive disorder, Morbid obesity (HCC), Neuropathy, SHADE (obstructive sleep apnea), and Peptic ulcer disease. Social History: reports that he has never smoked. He has never used smokeless tobacco. He reports current alcohol use. Family History: Family History Problem Relation Age of Onset Heart Disease Mother pacer Cancer Sister 58 Kidney Vitals: BP (!) 141/87 Pulse (!) 104 Temp 100.4 F (38 C) Resp 18 Ht 6' 5 (1.956 m) Wt (!) 350 lb (158.8 kg) SpO2 95% BMI 41.50 kg/m Temp (24hrs), Av.9 F (37.7 C), Min:97.7 F (36.5 C), Max:100.9 F (38.3 C) Recent Labs 06/20/22 11506/20/22161106/20/22200806/21/22 0707 POCGLU 129* 163* 183* 248* I/O (24Hr): Intake/Output Summary (Last 24 hours) at 06/21/2022 1030 Last data filed at 06/21/2022 0406 Gross per 24 hour Intake -- Output 2975 ml Net -2975 ml Labs: Hematology: Recent Labs 06/20/22 03306/21/22 0830 WBC 12.7* 8.0 RBC 4.51 4.92 HGB 13.7 15.2 HCT 42.2 43.7 MCV 93.6 88.8 MCH 30.4 30.9 MCHC 32.5 34.8 RDW 13.8 13.7 PLT 199 147 MPV 11.1 10.4 Chemistry: Recent Labs 06/20/22 03306/20/22 0429 06/21/22 0830 NA 128* 127* 126* K 4.3 4.3 5.1 CL 92* 93* 93* CO2 19* 15* 16* GLUCOSE 145* 152* 283* BUN 47* 49* 51* CREATININE 3.64* 3.65* 4.50* MG -- -- 1.7 ANIONGAP 17 19* 17 LABGLOM 18* 18* 14* CALCIUM 9.1 9.0 8.6 PHOS -- -- 4.1 TROPHS 52* 51* -- Recent Labs 06/20/22 03306/20/22 0905 06/20/22 11506/20/22 1612 06/20/22200806/21/22 0707 06/21/22 0830 PROT 7.8 -- -- -- -- -- -- LABALBU 3.5 -- -- -- -- -- 3.0* AST 21 -- -- -- -- -- -- ALT 13 -- -- -- -- -- -- ALKPHOS 93 -- -- -- -- -- -- BILITOT 0.7 -- -- -- -- -- -- POCGLU -- 92 129* 163* 183* 248* -- ABG:No results found for: POCPH, PHART, PH, POCPCO2, [id number], PCO2, POCPO2, PO2ART, PO2, POCHCO3, JEL2NIZ, HCO3, NBEA, PBEA, BEART, BE, THGBART, THB, [id number], [id number], [id number], O2SAT, FIO2 Lab Results Component Value Date/Time SPECIAL RAC 10ML 06/20/2022 03:51 AM Lab Results Component Value Date/Time CULTURE NO SIGNIFICANT GROWTH 06/20/2022 08:28 AM Radiology: CT ABDOMEN PELVIS WO CONTRAST Additional Contrast? None Result Date: 06/20/2022 1. Left ureteral stent in place with a 3 mm distal left ureteral calculus. No significant left hydronephrosis however there is perinephric and periureteral stranding suggestive of superimposed infection/inflammation. 2. 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 3. Nonobstructing bilateral renal calculi. CT HEAD WO CONTRAST Result Date: 06/20/2022 No acute intracranial abnormality. XR CHEST PORTABLE Result Date: 06/20/2022 No acute cardiopulmonary findings. Physical Examination: General appearance: alert, cooperative and no distress Mental Status: oriented to person, place and time and normal affect Lungs: clear to auscultation bilaterally, normal effort Heart: regular rate and rhythm, no murmur Abdomen: soft, nontender, nondistended, normal bowel sounds, no masses, hepatomegaly, splenomegaly Extremities: no edema, redness, tenderness in the calves Skin: no gross lesions, rashes, induration Assessment: Hospital Problems Last Modified POA * (Principal) DAISY (acute kidney injury) (HCC) 06/20/2022 Yes Acute kidney injury superimposed on CKD ([facility]) 06/20/2022 Yes Chronic kidney disease 06/20/2022 Yes Type 2 diabetes mellitus with stage 3a chronic kidney disease ([facility]) 06/20/2022 Yes Hyperlipidemia 06/20/2022 Yes Primary hypertension 06/20/2022 Yes Left ureteral stone 06/20/2022 Yes BRITTANY (generalized anxiety disorder) 06/20/2022 Yes Major depressive disorder, recurrent, moderate ([facility]) 06/20/2022 Yes Bandemia 06/20/2022 Yes Pyelonephritis of left kidney 06/20/2022 Yes 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 Yes Plan: DAISY on CKD Unlikely obstructive DAISY, likely from vancomycin versus sepsis We will consult nephrology for dialysis needs Emphysematous cystitis Continue Zosyn and Zyvox for antibiotics Infectious disease consulted Non-anion gap metabolic acidosis Start half bicarb drip, 75 and half-normal saline Likely from DAISY Nephrolithiasis status post stent placement 05/28/2022 Plans for lithotripsy 06/29/2022 No plans for surgical intervention at this point due to ongoing infection Phimosis Sepsis Obstructive sleep apnea Patient's CPAP currently not working, will order CPAP while inpatient Morbid obesity Type 2 diabetes Continue sliding scale Major depressive disorder Debility Patient initially left the hospital to go to inpatient rehab and when transitioned to nursing facility was brought back to the hospital for sepsis. Patient will need to work with physical therapy, unclear on discharge plan as patient is scheduled for lithotripsy next week. Case management consulted Chepe Cordova DO 06/21/2022 10:30 AM * Allegra Scherer MD - 06/21/2022 9:59 AM EDT Images from the original note were not included. 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 Emphysematous cystitis bandemia Bilateral nonobstructive kidney stones Diabetes mellitus, CKD 3, obesity Discussion / summary of stay / plan of care Recommendations Pending blood cultures and urine culture continue Zosyn, switch to Zyvox from vancomycin to protect the kidney Adjust antibiotics to final cultures- disc w daughter Infection Control Recommendations [place] Precautions Contact Isolation Antimicrobial Stewardship Recommendations Simplification of therapy Targeted therapy History of Present Illness: Initial history: Steven Walden is a 62 y.o.-year-old male presents with a left flank pain, dysuria, as well as fever ongoing for 3 days, in the ER CT scan of the abdomen suggest of a emphysematous cystitis through air in the bladder, as well as left pyelonephritis, with a stent in the left ureter, no hydronephrosis but ureteral stones. Blood cultures and urine culture were sent, ID consult placed due to emphysematous pyelonephritis Patient is diabetic, his white count is 12, creatinine clearance 36, he does have a fever of 38.3 today. Interval changes 06/21/2022 Patient Vitals for the past 8 hrs: BP Temp Temp src Pulse Resp SpO2 06/21/22 0851 (!) 141/87 100.4 F (38 C) -- (!) 104 18 95 % 06/21/22 0405 -- 97.7 F (36.5 C) Oral -- -- -- 06/21 LGF, Tmax 100.9. Pt currently on Zyvox and Zosyn. BC NGTD, Ucx neg. Still bladder pain - Carballo bloody Looks better and no fever Summary of relevant labs: Labs: WBC 12.7 - 8 Micro: Blood culture X23/12 Urine culture 06/20 Imaging: CT abdomen and pelvis 06/20 Left ureteral stent in place, 3 mm distal left ureteral calculus, no left hydro- Perinephric and periureteral stranding on the left suggestive of infection, gas in the bladder concerning for emphysematous cystitis Nonobstructive bilateral renal calculi Chest x-ray negative CT head negative I have personally reviewed the past medical history, past surgical history, medications, social history, and family history, and I haveupdated the database accordingly. Allergies: Patient has no known allergies. Review of Systems: Review of Systems Constitutional: Positive for fever. Negative for activity change. HENT: Negative for congestion. Eyes: Negative for pain, discharge and redness. Respiratory: Negative for apnea. Cardiovascular: Negative for chest pain. Gastrointestinal: Negative for abdominal distention. Endocrine: Negative for cold intolerance. Genitourinary: Positive for dysuria and flank pain. Musculoskeletal: Negative for arthralgias. Skin: Negative for color change. Allergic/Immunologic: Negative for food allergies. Neurological: Negative for dizziness, tremors and syncope. Hematological: Negative for adenopathy. Psychiatric/Behavioral: Negative for agitation. Physical Examination : Physical Exam Constitutional: Appearance: Normal appearance. He is not ill-appearing, toxic-appearing or diaphoretic. HENT: Head: Normocephalic and atraumatic. Nose: Nose normal. Mouth/Throat: Mouth: Mucous membranes are moist. Eyes: Pupils: Pupils are equal, round, and reactive to light. Cardiovascular: Rate and Rhythm: Normal rate and regular rhythm. Heart sounds: Normal heart sounds. No murmur heard. Pulmonary: Effort: No respiratory distress. Breath sounds: Normal breath sounds. No wheezing. Abdominal: General: There is no distension. Tenderness: There is no abdominal tenderness. There is no guarding. Genitourinary: Comments: No carballo Musculoskeletal: General: No swelling, tenderness, deformity or signs of injury. Cervical back: Neck supple. No rigidity. Skin: General: Skin is dry. Coloration: Skin is not jaundiced. Neurological: General: No focal deficit present. Mental Status: He is alert and oriented to person, place, and time. Psychiatric: Mood and Affect: Mood normal. Thought Content: Thought content normal. 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, neuropathy and CKD stage 3 Gout Hyperlipidemia Hypertension 2000 Major depressive disorder Morbid obesity (HCC) Neuropathy SHADE (obstructive sleep apnea) 2003 Peptic ulcer disease 2018 Duodenal Ulcer Past Surgical History: Past Surgical History: Procedure Laterality Date CHOLECYSTECTOMY 2011 CYSTOSCOPY Left 05/28/2022 CYSTOSCOPY, URETERAL STENT INSERTION, URETHRAL DILATION performed by Kevin Myles MD at [facility] OR HAND SURGERY Right 12/2021 Medications: senna 1 tablet Oral Nightly polyethylene glycol 17 g Oral Daily bisacodyl 10 mg Rectal Daily allopurinol 100 mg Oral Daily atorvastatin 20 mg Oral Nightly budesonide-formoterol 2 puff Inhalation BID lamoTRIgine 200 mg Oral Daily mirtazapine 30 mg Oral Nightly pantoprazole 40 mg Oral QAM AC [Held by provider] propranolol 20 mg Oral TID tamsulosin 0.4 mg Oral Daily venlafaxine 150 mg Oral Daily sodium chloride flush 5-40 mL IntraVENous 2 times per day enoxaparin 40 mg SubCUTAneous BID insulin lispro 0-8 Units SubCUTAneous TID WC insulin lispro 0-4 Units SubCUTAneous Nightly piperacillin-tazobactam 2,250 mg IntraVENous Q8H linezolid 600 mg IntraVENous Q12H Social History: Social History Socioeconomic History Marital status: Spouse name: Not on file Number of children: Not on file Years of education: Not on file Highest education level: Not on file Occupational History Not on file Tobacco Use Smoking status: Never Smokeless tobacco: Never Substance and Sexual Activity Alcohol use: Yes Comment: less than 6 beers annually Drug use: Not on file Sexual activity: Not on file Other Topics Concern Not on file Social History Narrative Unemployed Social Determinants of Health Financial Resource Strain: Not on file Food Insecurity: Not on file Transportation Needs: Not on file Physical Activity: Not on file Stress: Not on file Social Connections: Not on file Intimate Partner Violence: Not on file Housing Stability: Not on file Family History: Family History Problem Relation Age of Onset Heart Disease Mother pacer Cancer Sister 58 Kidney Medical Decision Making: I have independently reviewed/ordered the following labs: CBC with Differential: Recent Labs 06/20/22 0331 06/21/22 0830 WBC 12.7* 8.0 HGB 13.7 15.2 HCT 42.2 43.7 PLT 199 147 LYMPHOPCT 6* -- MONOPCT 8 -- BMP: Recent Labs 06/20/22 0429 06/21/22 0830 NA 127* 126* K 4.3 5.1 CL 93* 93* CO2 15* 16* BUN 49* 51* CREATININE 3.65* 4.50* MG -- 1.7 Hepatic Function Panel: Recent Labs 06/20/22 0331 06/21/22 0830 PROT 7.8 -- LABALBU 3.5 3.0* BILITOT 0.7 -- ALKPHOS 93 -- ALT 13 -- AST 21 -- No results for input(s): RPR in the last 72 hours. No results for input(s): HIV in the last 72 hours. No results for input(s): BC in the last 72 hours. Lab Results Component Value Date/Time CREATININE 4.50 06/21/2022 08:30 AM GLUCOSE 283 06/21/2022 08:30 AM Detailed results: Thank you for allowing us to participate in the care of this patient.Please call with questions. This note is created with the assistance of a speech recognition program. While intending to generate adocument that actually reflects the content of the visit, the document can still have some errors including those of syntax and sound a like substitutions which may escape proof reading. It such instances, actual meaningcan be extrapolated by contextual diversion. Chela Gonsalves Office: Perfect serve / office [phone] I have discussed the care of the patient, including pertinent history and exam findings, with the resident. I have seen and examined the patient and the [place] elements of all parts of the encounter have been performed by me. I agree with the assessment, plan and orders as documented by the resident. Allegra Scherer, Infectious Diseases * Kristina Burleson MD - 06/21/2022 6:57 AM EDT Urology Progress Note Subjective: Fever to 100.9 F overnight Mildly tachycardic No nausea/vomiting No flank pain WBC pending (12.7) Cr pending (3.65) Carballo clear pink urine 2.9 L over 24 hours Patient Vitals for the past 24 hrs: BP Temp Temp src Pulse Resp SpO2 06/21/22 0405 -- 97.7 F (36.5 C) Oral -- -- -- 06/21/22 0006 -- 99.7 F (37.6 C) Oral -- -- -- 06/20/22 2245 -- 100.4 F (38 C) -- (!) 110 -- -- 06/20/22 2000 124/78 (!) 100.9 F (38.3 C) Oral (!) 104 16 94 % 06/20/22 1831 -- -- -- -- 16 -- 06/20/22 1614 133/83 100 F (37.8 C) Oral 94 16 95 % 06/20/22 1357 -- -- -- -- 16 -- 06/20/22 1153 127/76 100.3 F (37.9 C) Oral 85 16 95 % 06/20/22 0828 (!) 114/58 (!) 100.7 F (38.2 C) Oral 79 16 93 % Intake/Output Summary (Last 24 hours) at 06/21/2022 0657 Last data filed at 06/21/2022 0406 Gross per 24 hour Intake -- Output 2975 ml Net -2975 ml Recent Labs 06/20/22 0331 WBC 12.7* HGB 13.7 HCT 42.2 MCV 93.6 PLT 199 Recent Labs 06/20/22 0331 06/20/22 0429 NA 128* 127* K 4.3 4.3 CL 92* 93* CO2 19* 15* BUN 47* 49* CREATININE 3.64* 3.65* Recent Labs 06/20/22 0830 COLORU [place]* PHUR 5.5 WBCUA 5 TO 10 RBCUA TOO NUMEROUS TO COUNT BACTERIA FEW* SPECGRAV 1.010 LEUKOCYTESUR SMALL* UROBILINOGEN Normal BILIRUBINUR NEGATIVE Additional Lab/culture results: Urine culture 06/20/22 no growth Blood cultures 06/20/22 prelim no growth Physical Exam: Constitutional: Patient in no acute distress; Neuro: alert and oriented to person place and time. Psych: Mood and affect normal. Skin: Normal Lungs: Respiratory effort normal Cardiovascular: Normal peripheral pulses Abdomen: Soft, non-tender, non-distended, no CVA tenderness, hepatosplenomegaly or hernia. Kidneys normal. Bladder non-tender and not distended. Lymphatics: no palpable lymphadenopathy Penis normal and uncircumcised, phimotic Urethral meatus normal Scrotal exam normal Testicles normal bilaterally Epididymis normal bilaterally Interval Imaging Findings: None Impression: 62 year old male Active problem list Emphysematous cystitis Hx of obstructing left ureteral stone s/p stent placement on 05/28/22 Hx of phimosis Hx of CKD Plan: Maintain carballo for maximal decompression Urine and blood cultures no growth CT A/P showed left ureteral stent in place with no significant hydronephrosis, however there is perinephric and periureteral stranding with gas noted within the bladder wall suspicious for emphysematous cystitis On Zosyn and Linezolid Patient has CKD, creatinine elevated from baseline, continue to trend No obstructive uropathy noted on CT Will continue to follow Kristina Burleson MD 6:57 AM 06/21/2022 * Chrissie Medrano RPH - 06/20/2022 9:04 AM EDT [facility] Pharmacokinetic Monitoring Service - Vancomycin Steven Walden is a 62 y.o. male starting on vancomycin therapy for UTI. Pharmacy consulted by Dr. Hess for monitoring and adjustment. Target Concentration: Dosing based on anticipated concentration <15 mg/L due to renal impairment/insufficiency Additional Antimicrobials: Piperacillin/tazobactam Pertinent Laboratory Values: Wt Readings from Last 1 Encounters: 06/20/22 (!) 350 lb (158.8 kg) Temp Readings from Last 1 Encounters: 06/20/22 (!) 100.7 F (38.2 C) (Oral) Estimated Creatinine Clearance: 36 mL/min (A) (based on SCr of 3.64 mg/dL (H)). Recent Labs 06/20/22 0331 CREATININE 3.64* WBC 12.7* Pertinent Cultures: Culture Date Source Results 06/20 Blood x 2 NGTD 06/20 Urine NGTD MRSA Nasal Swab: N/A. Non-respiratory infection. Scr elevated to 3.64 from previously down to ~2.1. Gram positive coverage warranted for UTI given recent stent. Plan: Concentration-guided dosing due to renal impairment/insufficiency Start vancomycin 2500 mg x 1, followed by dose by levels Renal labs as indicated Vancomycin concentration ordered for 06/21 @ AM labs Pharmacy will continue to monitor patient and adjust therapy as indicated Thank you for the consult, Chrissie Medrano RPH 06/20/2022 9:02 AM documented in this encounterBON [facility] Work Phone: 1(561) 833-895403-22-2023 Hospital course Narrative* Love Hess MD - 06/30/2022 11:06 AM EDT Images from the original note were not included. [facility] Office: [phone] Chris Osman DO, Terrence Johns DO, Stefani Augustin DO, Jaspreet Mosley, DO, Surekha Batista MD, Adrienne Means MD, Rosales Singh MD, Caitlyn Benz MD, Abdoul Camargo MD, Cathy Farooq MD, Chepe CordovaDO, Love Hess MD, Deja Guevara DO, pAril Girard MD, Arvin Maya MD, Jessica Osman DO, Shima Watson MD, Raphael Connor MD, Jerome Simon DO, Yoselyn Thakkar MD, Codi Self MD, Gilda Sousa MD, Sheyla Viveros MD, Vikki Adorno MD, Jarocho Real DO, Krishan Vogt MD, Radha William MD, Shaunna Freitas, HOUSE MOVING SUPERVISOR, Prabha Hauser, HOUSE MOVING SUPERVISOR, Shirlene Dacosta, HOUSE MOVING SUPERVISOR, Favian Ji, HOUSE MOVING SUPERVISOR, Yesenia Espino, TEJINDER, Ema Mason, HOUSE MOVING SUPERVISOR, Calista Mendez, HOUSE MOVING SUPERVISOR, Gunjan Ruiz, HOUSE MOVING SUPERVISOR, Sharon Barry, HOUSE MOVING SUPERVISOR, Sri Weiner, HOUSE MOVING SUPERVISOR, Gillian Valles PA-C, Carleen Paiz, SOCIAL WORK FACULTY MEMBER, Catie Cheema, HOUSE MOVING SUPERVISOR, Chelsea Kulkarni, HOUSE MOVING SUPERVISOR [facility] IN-PATIENT SERVICE [facility] Discharge Summary Patient ID: Steven Walden : 1960 ACCOUNT: [id number] Patient's PCP: Darion Randle MD Admit Date: 06/20/2022 Discharge Date: 06/30/2022 Length of Stay: 10 Code Status: Full Code Admitting Physician: Sheyla Viveros MD Discharge Physician: Love Hess MD Active Discharge Diagnoses: Hospital Problem Lists: Principal Problem: DAISY (acute kidney injury) (HCC) Active Problems: Acute kidney injury superimposed on CKD (HCC) Chronic kidney disease Type 2 diabetes mellitus with stage 3a chronic kidney disease (HCC) Hyperlipidemia Primary hypertension Left ureteral stone BRITTANY (generalized anxiety disorder) Major depressive disorder, recurrent, moderate (HCC) Bandemia Pyelonephritis Emphysematous cystitis Hyponatremia Dependence on renal dialysis (HCC) Metabolic acidosis Resolved Problems: * No resolved hospital problems. * Admission Condition: stable Discharged Condition: stable Hospital Stay: Hospital Course: Steven Walden is a 62 y.o. male who was admitted for the management of DAISY (acute kidney injury) (HCC) , presented to ER with Fall, Fever, and Flank Pain 62-year-old male past medical history of CKD stage III, diabetes, hypertension, hyperlipidemia, obesity, obesity hypoventilation syndrome presents with fevers chills left-sided flank pain for the past 3 days found to have emphysematous cystitis and being followed by urology and infectious disease. Kidney function unfortunately worsened and was started on dialysis. Plan for tunnel catheter placement on 06/30/2022. Patient underwent cystoscopy, left stent removal, stone basketing with urology on 06/29/2022. Patient to continue with cefepime for antibiotics till 07/02/2022. Discharge planning to acute rehab. Patient has been followed by urology, nephrology, physiatry. Date of Procedure: 06/29/2022 Pre-Op Diagnosis: LEFT URETERAL STONE Post-Op Diagnosis: Same Procedure(s): CYSTOSCOPY, URETEROSCOPY, LEFT STENT REMOVAL, STONE BASKETING Surgeon(s): Kevin Myles MD Lead Injection Mold Technician: * No surgical staff found * Anesthesia: Monitor Anesthesia Care Estimated Blood Loss (mL): Minimal Complications: None Significant therapeutic interventions: see above Significant Diagnostic Studies: Labs / Micro: CBC: Lab Results Component Value Date/Time WBC 13.6 06/30/2022 09:58 AM RBC 3.76 06/30/2022 09:58 AM HGB 11.6 06/30/2022 09:58 AM HCT 36.0 06/30/2022 09:58 AM MCV 95.7 06/30/2022 09:58 AM MCH 30.9 06/30/2022 09:58 AM MCHC 32.2 06/30/2022 09:58 AM RDW 13.7 06/30/2022 09:58 AM PLT 276 06/30/2022 09:58 AM BMP: Lab Results Component Value Date/Time GLUCOSE 209 06/30/2022 09:58 AM NA 137 06/30/2022 09:58 AM K 3.7 06/30/2022 09:58 AM CL 98 06/30/2022 09:58 AM CO2 26 06/30/2022 09:58 AM ANIONGAP 13 06/30/2022 09:58 AM BUN 32 06/30/2022 09:58 AM CREATININE 3.70 06/30/2022 09:58 AM CALCIUM 9.1 06/30/2022 09:58 AM LABGLOM 18 06/30/2022 09:58 AM Radiology: CT HEAD WO CONTRAST Result Date: 06/26/2022 No acute intracranial abnormality. XR CHEST PORTABLE Result Date: 06/26/2022 No acute cardiopulmonary process. Right internal jugular line with the tip near the cavoatrial junction. IR TUNNELED CVC PLACE WO SQ PORT/PUMP > 5 YEARS Result Date: 06/28/2022 Successful ultrasound and fluoroscopy guided tunneled catheter placement, as above. Dialysis catheter is ready for use at this time. IR NON TUNNELED CATH WO PORT REPLACEMENT Result Date: 06/24/2022 Successful ultrasound and fluoroscopy guided non-tunneled hemodialysis catheter placement via the right internal jugular vein. Okay to use. Consultations: Consults: Final Specialist Recommendations/Findings: IP CONSULT TO HOSPITALIST IP CONSULT TO INFECTIOUS DISEASES IP CONSULT TO UROLOGY IP CONSULT TO NEPHROLOGY IP CONSULT TO CARDIOLOGY IP CONSULT TO PHYSICAL MEDICINE REHAB IP CONSULT TO PSYCHIATRY IP CONSULT TO IV TEAM IP CONSULT TO HOSPITALIST The patient was seen and examined on day of discharge and this discharge summary is in conjunction with any daily progress note from day of discharge. Discharge plan: Disposition: ARU Physician Follow Up: Kevin Myles MD [address] [facility] [id number] Follow up in 6 week(s) for stone fu Darion Randle MD [address] [facility] [address] [facility] [place] [address] Follow up Yo Batista MD [address] [facility] [id number] Follow up Requiring Further Evaluation/Follow Up POST HOSPITALIZATION/Incidental Findings: Continue acute rehab, dialysis per nephrology recommenations, cefepime with dialysis Diet: renal diet Activity: As tolerated Instructions to Patient: Continue acute rehab, dialysis per nephrology recommenations, cefepime with dialysis Discharge Medications: Medication List START taking these medications cefepime infusion Commonly known as: MAXIPIME Infuse 2,000 mg intravenously three times a week for 6 doses Compound per protocol CONTINUE taking these medications Handicap Ravin Misc by Does not apply route Duration: 3 months / Dx:Amb difficulty ASK your doctor about these medications albuterol sulfate HFA 108 (90 Base) MCG/ACT inhaler Commonly known as: PROVENTIL;VENTOLIN;PROAIR allopurinol 100 MG tablet Commonly known as: ZYLOPRIM ALPRAZolam 0.5 MG tablet Commonly known as: XANAX atorvastatin 20 MG tablet Commonly known as: LIPITOR budesonide-formoterol 80-4.5 MCG/ACT Aero Commonly known as: Symbicort Inhale 2 puffs into the lungs in the morning and 2 puffs in the evening. Farxiga 10 MG tablet Generic drug: dapagliflozin gabapentin 300 MG capsule Commonly known as: NEURONTIN insulin regular human 500 UNIT/ML Sopn concentrated injection pen Commonly known as: humuLIN R U-500 KWIKPEN Inject 10 Units into the skin 2 times daily (with meals) F/u with PCP for further adjustment, monitor gluc Kerendia 10 MG Tabs Generic drug: Finerenone lamoTRIgine 200 MG tablet Commonly known as: LAMICTAL metoprolol tartrate 50 MG tablet Commonly known as: LOPRESSOR mirtazapine 30 MG tablet Commonly known as: REMERON omeprazole 40 MG delayed release capsule Commonly known as: PRILOSEC promethazine 12.5 MG tablet Commonly known as: PHENERGAN Rexulti 2 MG Tabs tablet Generic drug: brexpiprazole Ask about: Which instructions should I use? tamsulosin 0.4 MG capsule Commonly known as: FLOMAX Take 1 capsule by mouth daily Trulicity 0.75 MG/0.5ML Sopn Generic drug: Dulaglutide Ask about: Which instructions should I use? venlafaxine 150 MG extended release capsule Commonly known as: EFFEXOR XR Take 1 capsule by mouth daily Vitamin D (Ergocalciferol) 85066 units Caps Take 50,000 Units by mouth once a week for 4 doses Where to Get Your Medications You can get these medications from any pharmacy Bring a paper prescription for each of these medications cefepime infusion No discharge procedures on file. Time Spent on discharge is 33 mins in patient examination, evaluation, counseling as well as medication reconciliation, prescriptions for required medications, discharge plan and follow up. Electronically signed by Love Hess MD 06/30/2022 11:[address] Darion Randle MD for the opportunity to be involved in this patient's care. documented in this encounterBON [employer] Phone: 1(194) 920-337003-21-2023 Hospital Discharge instructions* Discharge Instructions* Miles Mitchell MD - 06/29/2022 10:14 AM EDT Follow up with urology in [address] Myles. Call to confirm appt * Discharge Instr - SHAYNE* Love Hess MD - 06/29/2022 5:05 PM EDT Continuity of Care Form Patient Name: Steven Walden : 1960 Admit date: 06/20/2022 Discharge date: Code Status Order: Full Code Advance Directives: Advance Care Flowsheet Documentation Date/Time Healthcare Directive Type of Healthcare Directive Copy in Chart Healthcare Agent Appointed Healthcare Agent's Name Healthcare Agent's Phone Number 06/29/22 0725 Yes, patient has an advance directive for healthcare treatment Durable power of machine installer for health care;Health care treatment directive No, copy requested from family -- Umm Walden [phone] Admitting Physician: Sheyla Viveros MD PCP: Darion Randle MD Discharging Nurse: Discharging Hospital Unit/Room#: 0438/0438-01 Discharging Unit Phone Number: Emergency Contact: Extended Emergency Contact Information Primary Emergency Contact: Umm Walden [employer] Relation: Spouse Preferred language: Citizen Of [place] Operator needed? No Secondary Emergency Contact: Racheal Walden [employer] Relation: Child Preferred language: Citizen Of [place] Operator needed? No Past Surgical History: Past Surgical History: Procedure Laterality Date CHOLECYSTECTOMY 2011 CYSTOSCOPY Left 05/28/2022 CYSTOSCOPY, URETERAL STENT INSERTION, URETHRAL DILATION performed by Kevin Myles MD at [facility] OR CYSTOSCOPY Left 06/29/2022 CYSTOSCOPY, URETEROSCOPY, LEFT STENT REMOVAL, STONE BASKETING (Left) CYSTOSTOMY W/ STENT INSERTION Left 06/29/2022 Stent exchange HAND SURGERY Right 12/2021 IR TUNNELED CATHETER PLACEMENT GREATER THAN 5 YEARS 06/28/2022 IR TUNNELED CATHETER PLACEMENT GREATER THAN 5 YEARS 06/28/2022 Gillian Batista MD [facility] SPECIAL PROCEDURES Immunization History: Immunization History Administered Date(s) Administered COVID-19, J&J, (age 18y+), IM, 0.5 mL 09/04/2020 Active Problems: Patient Active Problem List Diagnosis Code DAISY (acute kidney injury) ([facility]) N17.9 Acute kidney injury superimposed on CKD ([facility]) N17.9, N18.9 Chronic kidney disease N18.9 Type 2 diabetes mellitus with stage 3a chronic kidney disease ([facility]) E11.22, N18.31 Hyperlipidemia E78.5 Primary hypertension I10 Urinary tract obstruction by kidney stone N20.0, N13.8 Hydronephrosis of left kidney N13.30 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 Left ureteral stone N20.1 Debility R53.81 BRITTANY (generalized anxiety disorder) F41.1 Major depressive disorder, recurrent, moderate ([facility]) F33.1 Tremor R25.1 Bandemia D72.825 Pyelonephritis N12 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 Hyponatremia E87.1 Dependence on renal dialysis ([facility]) Z99.2 Metabolic acidosis E87.20 Isolation/Infection: Isolation No Isolation Patient Infection Status Infection Onset Added Last Indicated Last Indicated By Review Planned Expiration Resolved Resolved By None active Resolved COVID-19 (Rule Out) 06/20/22 06/20/22 06/20/22 COVID-19, Rapid (Ordered) 06/20/22 Rule-Out Test Resulted C-diff Rule Out 05/28/22 05/28/22 05/28/22 C DIFF TOXIN/ANTIGEN (Ordered) 05/29/22 Rule-Out Test Canceled Nurse Assessment: Last Vital Signs: BP (!) 171/91 Pulse 80 Temp 97.9 F (36.6 C) Resp 18 Ht 6' 5 (1.956 m) Wt (!) 338 lb 6.5 oz (153.5 kg) SpO2 95% BMI 40.13 kg/m Last documented pain score (0-10 scale): Pain Level: 0 Last Weight: Wt Readings from Last 1 Encounters: 06/29/22 (!) 338 lb 6.5 oz (153.5 kg) Mental Status: {IP PT MENTAL STATUS:} IV Access: { SHAYNE IV ACCESS:526009201} Nursing Mobility/ADLs: Walking {CHP DME ADLs:477117058} Transfer {CHP DME ADLs:455175404} Bathing {CHP DME ADLs:730373008} Dressing {CHP DME ADLs:820472353} Toileting {CHP DME ADLs:501436588} Feeding {CHP DME ADLs:545119820} Autism Teacher {CHP DME ADLs:726606598} Med Delivery { SHAYNE MED Delivery:211476848} Wound Care Documentation and Therapy: Elimination: Continence: Bowel: {YES / NO:} Bladder: {YES / NO:} Urinary Catheter: {Urinary Catheter:176929952} Colostomy/Ileostomy/Ileal Conduit: {YES / NO:} Date of Last BM: Intake/Output Summary (Last 24 hours) at 06/29/2022 1704 Last data filed at 06/29/2022 1001 Gross per 24 hour Intake 300 ml Output 1300 ml Net -1000 ml I/O last 3 completed shifts: In: 120 [P.O.:120] Out: 2124 [Urine:2124] Safety Concerns: { SHAYNE Safety Concerns:711362124} Impairments/Disabilities: { SHAYNE Impairments/Disabilities:924468091} Nutrition Therapy: Current Nutrition Therapy: { SHAYNE Diet List:645145497} Routes of Feeding: {P DME Other Feedings:422081836} Liquids: {Almond Paste Mixer liquid thickness:07555} Daily Fluid Restriction: {CHP DME Yes amt example:277271357} Last Modified Barium Swallow with Video (Video Swallowing Test): {Done Not Done Date:} Treatments at the Time of Hospital Discharge: Respiratory Treatments: Oxygen Therapy: {Therapy; copd oxygen:18777} Ventilator: { CC Vent List:714571507} Rehab Therapies: {THERAPEUTIC INTERVENTION:4707560637} Weight Bearing Status/Restrictions: { CC Weight Bearin} Other Medical Equipment (for information only, NOT a DME order): {EQUIPMENT:269764834} Other Treatments: Patient's personal belongings (please select all that are sent with patient): {CHP DME Belongings:869203448} RN SIGNATURE: {Esignature:214608555} CASE MANAGEMENT/SOCIAL WORK SECTION Inpatient Status Date: Readmission Risk Assessment Score: Readmission Risk Risk of Unplanned Readmission: 29 Discharging to Facility/ Agency Name: Address: Phone: Fax: Dialysis Facility (if applicable) Name: Address: Dialysis Schedule: Phone: Fax: [employer] Administrator signature: {Esignature:878499652} PHYSICIAN SECTION Prognosis: Guarded Condition at Discharge: Stable Rehab Potential (if transferring to Rehab): Fair Recommended Labs or Other Treatments After Discharge: PT, OT, nursing evaluation and treatment, follow up void trial on 06/30/22, dialysis per nephroligy recommendations, cefepime with dialysis till 07/02/22. Physician Certification: I certify the above information and transfer of Steven Walden is necessary for the continuing treatment of the diagnosis listed and that he requires Acute Rehab for less 30 days. Update Admission H&P: No change in H&P PHYSICIAN SIGNATURE: documented in this encounterBON [facility] Phone: 1(546) 127-236403-20-2023 NotePROCEDURE: ULTRASOUND GUIDED VASCULAR ACCESS. FLUOROSCOPY GUIDED PLACEMENT OF A TUNNELED CATHETER. 06/28/2022. HISTORY: ORDERING SYSTEM PROVIDED HISTORY: Hemodialysis access TECHNOLOGIST PROVIDED HISTORY: Hemodialysis access How many lumens are being requested?->2 What side should this line be placed?->Either What site is the preferred site?->Internal Jugular Recent temp cath SEDATION: Local anesthesia FLUOROSCOPY DOSE AND TYPE: Fluoroscopy time 0 point minutes D AP-909 cGy cm squared TECHNIQUE: Informed consent was obtained after a detailed explanation of the procedure including risks, benefits, and alternatives. All aspects of maximum sterile barrier technique were used including washing hands with conventional soap and water or with alcohol-based hand rubs (ABHR), skin preparation, cap, mask, sterile gown, sterile gloves, and sterile full body drape. The existing temporary IJ catheter insertion site was too high; it was removed uneventfully. Local anesthesia was achieved with lidocaine. A micropuncture needle was used to access the right internal jugular vein more inferiorly using ultrasound guidance. An ultrasound image demonstrating patency of the vein with needle tip located within it was obtained and stored in PACS. A 0.018 inch guidewire 2 in 1 transition set left in place, with the tip of the wire in the lower a RA. A subcutaneous tunnel was created to the infraclavicular region and a tunneled 14 Taj[place] x 28 cm split cath tunneled dialysis catheter was pulled through the subcutaneous tunnel to the venotomy site. A 0.035 guidewire was used to place a peel-away sheath. Catheter was then advanced through the peel-away sheath under fluoroscopic guidance to the right atrium. The catheter flushed easily and there was a good blood return. The catheter was sutured to the skin. The catheter was locked with heparinized saline. The patient tolerated the procedure well and there were no immediate complications. FINDINGS: Fluoroscopic image demonstrates the tip of the catheter in the right atrium. IMPRESSION: Successful ultrasound and fluoroscopy guided tunneled catheter placement, as above. Dialysis catheter is ready for use at this time. Interpreted by: Gillian Batista MD Signed by: Gillian Batista MD 06/28/22 [facility] NotePROCEDURE: ULTRASOUND GUIDED VASCULAR ACCESS. FLUOROSCOPY GUIDED PLACEMENT OF A NON-TUNNELED CATHETER. 06/24/2022. HISTORY: ORDERING SYSTEM PROVIDED HISTORY: Temporary dialysis catheter TECHNOLOGIST PROVIDED HISTORY: Temporary dialysis catheter How many lumens are being requested?->2 What site is the preferred site?->Internal Jugular What side should this line be placed?->Right SEDATION: None FLUOROSCOPY DOSE AND TYPE: Fluoro time 4.5 minutes DAP 8306.56 uGy cm 2 Views: 4 TECHNIQUE: This procedure was performed by Jeff Milner PA-C under indirect supervision of Dr. Bolivar. Informed consent was obtained after a detailed explanation of the procedure including risks, benefits, and alternatives. [place] protocol was observed using maximum sterile barrier technique. All elements of maximal sterile barrier technique, including cap, mask, sterile gown, sterile gloves, a large sterile sheet, hand hygiene and 2% chlorhexidine for cutaneous antisepsis were followed. Using ultrasound guidance, after anesthetizing the skin with one percent lidocaine, a micropuncture needle was advanced into the patent right internal jugular vein. An ultrasound image demonstrating patency of the vein with needle tip located within it was obtained and stored in PACs. A microwire was inserted under fluoroscopic guidance and the needle was removed and a 5 [place] sheath was placed. The microwire was exchanged for an 0.035 stiff glide wire, and the tract was serially dilated up to 12 [place]; attempted dilation up to 14 [place] was initially unsuccessful. A 0.035 stiff Glidewire was exchanged for a 0.035 Amplatz wire, and the vessel was dilated with a 14 [place] vessel dilator. Subsequently this allowed for accommodation of a 14 [place] by 20 cm non tunneled Schon hemodialysis catheter. An image was saved demonstrating the catheter tip projecting over the expected position of the distal SVC. The catheter flushed and aspirated appropriately. This was sutured to the skin using 2-0 Ethilon and dressed appropriately. Estimated blood loss was 5 mL. The patient tolerated the procedure well and left the department stable condition. COMPLICATIONS: None immediately apparent IMPRESSION: Successful ultrasound and fluoroscopy guided non-tunneled hemodialysis catheter placement via the right internal jugular vein. Okay to use. Interpreted by: MD Jeff Borja PA Signed by: Jessica Bolivar MD 06/24/22 [facility] History of Present illness Narrative* Gunjan Jackson - 06/11/2022 12:39 PM EST CLINICAL PHARMACY NOTE: MEDS TO BEDS Total # of Prescriptions Filled: 3 The following medications were delivered to the patient: Pantoprazole 40mg Symbicort 80-4.5mcg Rexulti 1mg Additional Documentation: Delivered medications to patients room * Thea Montes RN - 06/11/2022 11:19 AM EST Images from the original note were not included. ACUTE INPATIENT REHABILITATION DISCHARGE [facility] Patient Name: Steven Walden Patient discharged in stable condition as per order of attending physician. AVS provided by nurse at time of discharge, which includes all necessary medical information pertaining to the patients current course of illness, treatment, medications, post-discharge goals of care, and treatment preferences. Provision of Current Reconciled Medication List to Patient at Discharge Indicate the route(s) of transmission of the current reconciled medication list to the patient/family/caregiver. Paper Based (e.g. fax, copies, print outs) Availability of My Chart offered to patient as a tool for updated health record. Steps for activation discussed with patient as mentioned on AVS. Patient/responsible republican verbalize understanding of discharge plan and are in agreement with goal/plan/treatment preferences. Belongings including Glasses, C=PAP, clothes, cell phone and sausage meat trimmer sent with patient/responsible republican. Home medications sent home with patient/responsible republican N/A Car Transfer Level of assistance required for patient transfer into vehicle: INDEPENDENT: Patient completes the activity by him/herself with no assistance from a helper High-Risk Drug Classes: Use and Indication Check if the patient is taking any medications by pharmacological classification If yes, check if there is an indication noted for all meds in the drug class Antipsychotic No If yes: indication noted? [] If no indication noted, follow up with provider for order clarification Anticoagulant No If yes: indication noted? [] Antibiotic No If yes: indication noted? [] Opioid No If yes: indication noted? [] Antiplatelet No If yes: indication noted? [] Hypoglycemic (Including Insulin) Yes If yes: indication noted? [] Pain Assessment Over the past 5 days, how much of the time has pain made it hard for you to sleep at night? Does not apply - I have not had any pain or hurting in the past 5 days Over the past 5 days, how often have you limited your participation in rehabilitation therapy sessions due to pain? Does not apply - I have not received rehabilitation therapy in the past 5 days Over the past 5 days, how often have you limited your day-to-day activities (excluding rehabilitation therapy session)? Rarely or not at all Special Treatments, Procedures, and Programs Check all of the following treatments, procedures, and programs that apply on admission. Cancer Treatments Chemotherapy No If Yes, Check All That Apply []IV Chemotherapy []Oral Chemotherapy [] Chemotherapy Radiation No Respiratory Therapies Oxygen Therapy No If Yes, Check All That Apply []Continuous []Intermittent []High-Concentration Suctioning No If Yes, Check All That Apply []Scheduled []As Needed Tracheostomy Care No Invasive Mechanical Ventilator (Ventilator or Respirator) No If Yes, Check All That Apply [] Non-invasive Mechanical Ventilator []BiPAP []CPAP Other IV Medications No If Yes, Check All That Apply [] IV Vasoactive Medications []IV Antibiotics []IV Anticoagulation [] IV Medications Transfusions No Dialysis No If Yes, Check All That Apply []Hemodialysis [] Dialysis IV Access No If Yes, Check All That Apply []Peripheral []Midline [] (PICC, tunneled, port) * Marcus Yepez MD - 06/11/2022 8:05 AM EST Physical Medicine & Rehabilitation Progress Note 06/11/2022 8:05 AM CC: Ambulatory and ADL dysfunction status post nephrolithiasis/stent. Subjective: Continues with tremors possibly mildly decreased otherwise no complaints. Feels well ready for discharge ROS: Denies fevers, chills, sweats. No chest pain, palpitations, lightheadedness. Denies coughing, wheezing or shortness of breath. Denies abdominal pain, nausea, diarrhea or constipation. No new areas of joint pain. Denies new areas of numbness or weakness. Denies new anxiety or depression issues. No new skin problems. Rehabilitation: PT: Restrictions/Precautions: Fall Risk, General Precautions, Up as Tolerated Other position/activity restrictions: up with assist, ureteral stent 05/29 Transfers Sit to Stand: Independent Stand to Sit: Independent Bed to Chair: Contact guard assistance Stand Pivot Transfers: Independent (no AD or UE support) Comment: RW used for transfers. Generally, good hand placement, with some cues at times to correct Ambulation Surface: Level tile, Ramp Device: No Device Other Apparatus: Wheelchair follow Assistance: Independent Quality of Gait: narrow step width, bilateral hip external rotation Gait Deviations: Slow Reyna, Decreased step length, Decreased step height, Decreased arm swing Distance: 300 and 340 ft including ramp 80 ft Comments: no complaints More Ambulation?: Yes OT: ADL Feeding: Setup Feeding Skilled Clinical Factors: reports slight trouble due to tremors Grooming: Minimal assistance Grooming Skilled Clinical Factors: Minimal assist for standing balance at sink. Supervision while seated in w/c at sink UE Bathing: Stand by assistance UE Bathing Skilled Clinical Factors: seated on tub transfer bench in shower LE Bathing: Contact guard assistance LE Bathing Skilled Clinical Factors: Minimal assist standing balance for buttocks while standing; SBA for all other tasks while seated UE Dressing: Stand by assistance UE Dressing Skilled Clinical Factors: overhead shirt LE Dressing: Moderate assistance LE Dressing Skilled Clinical Factors: assist to thread L LE this date into pants; SBA thread B LE underwear & R LE into pants. HEATHER hose measured and applied. Assist to don B socks Toileting: Minimal assistance Toileting Skilled Clinical Factors: Minimal assist standing balance for clothing management and personal hygiene Additional Comments: OT facilitated patient engagement in showering routine including bathing, dressing, toileting, and grooming tasks this date. Please see above for details. Patient reports high motivation with independence with self- care and occupational therapy. Throughout standing tolerance tasks, patient's B LE were intermittently shaking. Patient reports it is weakness. Balance Sitting Balance: Stand by assistance Standing Balance: Minimal assistance (Min/CGA) Standing Balance Time: 3 minutes x 1, 30-60 seconds x 4 Activity: self-care tasks Functional Mobility Functional - Mobility Device: Rolling Walker Activity: To/from bathroom Assist Level: Minimal assistance Functional Mobility Comments: with Minimal verbal cues for safety Bed mobility Rolling to Left: Independent Rolling to Right: Minimal assistance Supine to Sit: Independent Sit to Supine: Independent Scooting: Independent Bed Mobility Comments: up in recliner Transfers Sit to stand: Contact guard assistance Stand to sit: Contact guard assistance Transfer Comments: with Minimal VCs for hand placement Toilet Transfers Toilet - Technique: Ambulating Equipment Used: Extra wide bedside commode Toilet Transfer: Minimal assistance Toilet Transfers Comments: bariatric BSC placed over toilet Shower Transfers Shower - Transfer From: Walker Shower - Transfer Type: To and From Shower - Transfer To: Transfer tub bench Shower - Technique: Ambulating Shower Transfers: Minimal assistance Shower Transfers Comments: with VCs for technique ST: Objective: BP 132/87 Pulse 79 Temp 97.7 F (36.5 C) Resp 16 Ht 6' 3.98 (1.93 m) Wt (!) 351 lb 9.6 oz(159.5 kg) SpO2 93% BMI 42.82 kg/m I Body mass index is 42.82 kg/m . I Wt Readings from Last 1 Encounters: 06/09/22 (!) 351 lb 9.6 oz (159.5 kg) Temp (24hrs), Av F (36.7 C), Min:97.7 F (36.5 C), Max:98.4 F (36.9 C) GEN: well developed, well nourished, no acute distress HEENT: Normocephalic atraumatic, EOMI, mucous membranes pink and moist CV: RRR, no murmurs, rubs or gallops PULM: CTAB, no rales or rhonchi. Respirations WNL and unlabored ABD: soft, NT, ND, +BS and equal NEURO: A&O x3. Sensation intact to light touch. Intentional tremors bilateral upper extremities MSK: Range of motion 4+/5 upper and distal lower extremities EXTREMITIES: No calf tenderness to palpation bilaterally. No edema BLEs SKIN: warm dry and intact with good turgor PSYCH: appropriately interactive. Affect WNL. Medications Scheduled Meds: brexpiprazole 1 mg Oral Daily allopurinol 100 mg Oral Daily atorvastatin 20 mg Oral Nightly budesonide-formoterol 2 puff Inhalation BID heparin (porcine) 5,000 Units SubCUTAneous 3 times per day insulin lispro 0-16 Units SubCUTAneous TID WC insulin lispro 0-4 Units SubCUTAneous Nightly lamoTRIgine 200 mg Oral Daily mirtazapine 30 mg Oral Nightly pantoprazole 40 mg Oral QAM AC propranolol 20 mg Oral TID tamsulosin 0.4 mg Oral Daily venlafaxine 150 mg Oral Daily vitamin D 50,000 Units Oral Weekly polyethylene glycol 17 g Oral Daily Continuous Infusions: dextrose PRN Meds:.ondansetron OR ondansetron, albuterol sulfate HFA, ALPRAZolam, dextrose, dextrose bolus OR dextrose bolus, glucagon (rDNA), glucose, HYDROcodone 5 mg - acetaminophen, hyoscyamine, acetaminophen, senna, bisacodyl Diagnostics: CBC: Recent Labs 06/10/22 1248 WBC 10.3 RBC 4.44* HGB 13.7 HCT 40.7* MCV 91.5 RDW 15.0* PLT 312 BMP: Recent Labs 06/10/22 1248 NA 137 K 4.4 CL 103 CO2 20 BUN 29* CREATININE 2.11* BNP: No results for input(s): BNP in the last 72 hours. PT/INR: No results for input(s): PROTIME, INR in the last 72 hours. APTT: No results for input(s): APTT in the last 72 hours. CARDIAC ENZYMES: No results for input(s): CKMB, CKMBINDEX, TROPONINT in the last 72 hours. Invalid input(s): CKTOTAL;3 FASTING LIPID PANEL:No results found for: CHOL, HDL, TRIG LIVER PROFILE: No results for input(s): AST, ALT, ALB, BILIDIR, BILITOT, ALKPHOS in the last 72 hours. I/O (24Hr): No intake or output data in the 24 hours ending 06/11/22 0805 Glu last 24 hour Recent Labs 06/10/22 1121 06/10/22 1557 06/10/22 2102 06/11/22 0552 POCGLU 223* 244* 206* 248* No results for input(s): CLARITYU, COLORU, PHUR, SPECGRAV, PROTEINU, RBCUA, BLOODU, BACTERIA, NITRU, WBCUA, LEUKOCYTESUR, YEAST, GLUCOSEU, BILIRUBINUR in the last 72 hours. Impression/Plan: Impaired ADLs, gait, and mobility due to: Debility secondary to obstructing nephrolithiasis: s/p L ureteral stent 05/28/22. Carballo removed 06/02. PT/OT for gait, mobility, strengthening, endurance, ADLs, and self care. Has Lena prn pain/has not been using discharge plan 06/11 Carballo removed 06/02 on Keflex until 06/09/22. Voiding well per nursing- DAISY on CKD III: Will monitor. Lisinopril and aldactone were held in the hospital. Creatinine stable2.11 Tremors: on propranolol. Possibly medication induced vs anxiety- Rexulti dose adjusted by psychiatry will follow with slow taper as outpatient. neuro, checking lamotrigine level 3.3 Anemia: Hb mildly reduced. Will monitor. HTN/HLD: on amlodipine, atorvastatin monitor blood pressure as lisinopril Aldactone were held in hospital, internal medicine follow DM: on U500 50 units BID DC'd 06/05 and sliding scale. Personally discussed with Dr. Menezes- glucose as above was on dulaglutide resume on discharge and-10 units twice daily Humulin R per IM Dr Menezes, monitor glucose discussed with patient Asthma: Albuterol prn and Symbicort BID Gout: was on allopurinol at home -resume Major Depressive Disorder, Recurrent Moderate: on Rexulti, Remeron, Effexor, Lamictal. Psych follow-up has not used Xanax SHADE: has home CPAP at hs. Panic Disorder, Generalized Anxiety Disorder: Hax Xanax prn. On propranolol TID. Psychiatry recommended outpatient CBT.-Psych. Discharge follow-up with own PCP Hx peptic ulcer: was on omeprazole prn at home. On Levsin prn as adjunct therapy. BPH: on tamsulosin Vitamin D deficiency: on repletion Morbid obesity: BMI 43.95. Dietitian following Bowel Management: Miralax daily, senokot prn, dulcolax prn. DVT Prophylaxis: heparin, SCD's while in bed, and HEATHER's during the day Internal medicine for medical management DC 3/3 okay with internal medicine/[id number] with 1. Yoana Randle MD 2. Neurology - Margarito 3. Urology 4. Psychiatry- Gisele, or own psych Rexulti wean 5. Nephrology Dr. Triplett 1-2 weeks, monitor glucose, out patient therapyPT/OT, no driving, weekly BMP x4 results to Dr. Triplett, med reconciliation done with patient and above reviewed with patient 35 min spent on dc Marcus Garcia MD This note is created with the assistance of a speech recognition program. While intending to generate a document that actually reflects the content of the visit, the document can still have some errors including those of syntax and sound a like substitutions which may escape proof reading. In such instances, actual meaning can be extrapolated by contextual diversion * Chris Gordon MD - 06/10/2022 8:04 PM EST Department of Psychiatry Consult Progress Note 06/10/2022 Patient Name: Steven Walden Reason for initial consult: Depression with anxiety Interval History: The patient was seen [id number]. We discussed that neurology had recommended weaning him off Rexulti. The patient is hesitant because he has found an improvement in his mood with Rexulti. He is agreeable to a reduction in the dose. His tremors are largely resolved. He denies any depressive symptoms or suicidal ideation and has been participating in therapy. At this time we will hold his Rexultidose at 1 mg daily Mental Status Exam Level of consciousness: Alert and awake Appearance: Appropriate attire for setting, seated in therapy area, with fair grooming and hygiene Behavior/Motor: Approachable, no e/o tremor. No psychomotor abnormalities Attitude toward examiner: Cooperative, attentive, good eye contact Speech: normal rate and normal volume Mood: euthymic Affect: Congruent Thought processes: linear, goal directed, and coherent Thought content: Denies homicidal ideation Suicidal Ideation: Denies suicidal ideations, contracts for safety on the unit. Delusions: No evidence of delusions. Perceptual Disturbance: Patient does not appear to be responding to internal stimuli. Cognition: Oriented to self, location, time, and situation Memory: intact Insight: good Judgement: good Data height is 6' 3.98 (1.93 m) and weight is 351 lb 9.6 oz (159.5 kg) (abnormal). His oral temperatureis 97.9 F (36.6 C). His blood pressure is 125/85 and his pulse is 70. His respiration is 16 and oxygen saturation is 95%. Labs: Admission on 06/04/2022 Component Date Value Ref Range Status Glucose 06/05/2022 171 (A) 70 - 99 mg/dL Final BUN 06/05/2022 27 (A) 8 - 23 mg/dL Final Creatinine 06/05/2022 2.07 (A) 0.70 - 1.20 mg/dL Final Est, Glom Filt Rate 06/05/2022 36 (A) >60 mL/min/1.73m2 Final Comment: These results are not intended for use in patients <18 years of age. eGFR results are calculated without a race factor using the 2020 CKD-EPI equation. Careful clinical correlation is recommended, particularly when comparing to results calculated using previous equations. The CKD-EPI equation is less accurate in patients with extremes of muscle mass, extra-renal metabolism of creatine, excessive creatine ingestion, or following therapy that affects renal tubular secretion. Calcium 06/05/2022 8.9 8.6 - 10.4 mg/dL Final Sodium 06/05/2022 140 135 - 144 mmol/L Final Potassium 06/05/2022 3.7 3.7 - 5.3 mmol/L Final Chloride 06/05/2022 105 98 - 107 mmol/L Final CO2 06/05/2022 24 20 - 31 mmol/L Final Anion Gap 06/05/2022 11 9 - 17 mmol/L Final Albumin 06/05/2022 3.4 (A) 3.5 - 5.2 g/dL Final Alkaline Phosphatase 06/05/2022 92 40 - 129 U/L Final ALT 06/05/2022 33 5 - 41 U/L Final AST 06/05/2022 30 <40 U/L Final Total Bilirubin 06/05/2022 0.4 0.3 - 1.2 mg/dL Final Bilirubin, Direct 06/05/2022 0.1 <0.3 mg/dL Final Bilirubin, Indirect 06/05/2022 0.3 0.0 - 1.0 mg/dL Final Total Protein 06/05/2022 7.2 6.4 - 8.3 g/dL Final WBC 06/05/2022 10.4 3.5 - 11.0 k/uL Final RBC 06/05/2022 4.03 (A) 4.5 - 5.9 m/uL Final Hemoglobin 06/05/2022 12.5 (A) 13.5 - 17.5 g/dL Final Hematocrit 06/05/2022 38.0 (A) 41 - 53 % Final MCV 06/05/2022 94.2 80 - 100 fL Final MCH 06/05/2022 31.1 26 - 34 pg Final MCHC 06/05/2022 33.1 31 - 37 g/dL Final RDW 06/05/2022 14.3 11.5 - 14.9 % Final Platelets 06/05/2022 357 150 - 450 k/uL Final MPV 06/05/2022 7.4 6.0 - 12.0 fL Final Seg Neutrophils 06/05/2022 62 36 - 66 % Final Lymphocytes 06/05/2022 24 24 - 44 % Final Monocytes 06/05/2022 8 (A) 1 - 7 % Final Eosinophils % 06/05/2022 5 (A) 0 - 4 % Final Basophils 06/05/2022 1 0 - 2 % Final Segs Absolute 06/05/2022 6.45 1.3 - 9.1 k/uL Final Absolute Lymph # 06/05/2022 2.50 1.0 - 4.8 k/uL Final Absolute [place] # 06/05/2022 0.83 0.1 - 1.3 k/uL Final Absolute Eos # 06/05/2022 0.52 (A) 0.0 - 0.4 k/uL Final Basophils Absolute 06/05/2022 0.10 0.0 - 0.2 k/uL Final Morphology 06/05/2022 ANISOCYTOSIS PRESENT Final POC Glucose 06/04/2022 213 (A) 75 - 110 mg/dL Final POC Glucose 06/05/2022 156 (A) 75 - 110 mg/dL Final POC Glucose 06/05/2022 218 (A) 75 - 110 mg/dL Final POC Glucose 06/05/2022 178 (A) 75 - 110 mg/dL Final POC Glucose 06/05/2022 216 (A) 75 - 110 mg/dL Final POC Glucose 06/06/2022 158 (A) 75 - 110 mg/dL Final POC Glucose 06/06/2022 255 (A) 75 - 110 mg/dL Final POC Glucose 06/06/2022 133 (A) 75 - 110 mg/dL Final POC Glucose 06/06/2022 209 (A) 75 - 110 mg/dL Final POC Glucose 06/07/2022 181 (A) 75 - 110 mg/dL Final POC Glucose 06/07/2022 180 (A) 75 - 110 mg/dL Final POC Glucose 06/07/2022 221 (A) 75 - 110 mg/dL Final POC Glucose 06/07/2022 219 (A) 75 - 110 mg/dL Final POC Glucose 06/08/2022 175 (A) 75 - 110 mg/dL Final POC Glucose 06/08/2022 248 (A) 75 - 110 mg/dL Final POC Glucose 06/08/2022 216 (A) 75 - 110 mg/dL Final POC Glucose 06/08/2022 202 (A) 75 - 110 mg/dL Final POC Glucose 06/09/2022 187 (A) 75 - 110 mg/dL Final POC Glucose 06/09/2022 215 (A) 75 - 110 mg/dL Final Lamotrigine Lvl 06/09/2022 3.3 3.0 - 15.0 ug/mL Final Comment: Neither a therapeutic or toxic range for Lamotrigine have been well established. Some reports suggest a target for steady-state concentrations of 3 - 15 ug/mL. However, there is not a clear relationship between lamotrigine serum concentrations and clinical response. The assay should be used in conjunction with information available from clinical evaluations and other diagnostic procedures. Multiple measurements of lamotrigine may be needed. POC Glucose 06/09/2022 232 (A) 75 - 110 mg/dL Final POC Glucose 06/09/2022 175 (A) 75 - 110 mg/dL Final POC Glucose 06/10/2022 208 (A) 75 - 110 mg/dL Final POC Glucose 06/10/2022 223 (A) 75 - 110 mg/dL Final Glucose 06/10/2022 254 (A) 70 - 99 mg/dL Final BUN 06/10/2022 29 (A) 8 - 23 mg/dL Final Creatinine 06/10/2022 2.11 (A) 0.70 - 1.20 mg/dL Final Est, Glom Filt Rate 06/10/2022 35 (A) >60 mL/min/1.73m2 Final Comment: These results are not intended for use in patients <18 years of age. eGFR results are calculated without a race factor using the 2020 CKD-EPI equation. Careful clinical correlation is recommended, particularly when comparing to results calculated using previous equations. The CKD-EPI equation is less accurate in patients with extremes of muscle mass, extra-renal metabolism of creatine, excessive creatine ingestion, or following therapy that affects renal tubular secretion. Calcium 06/10/2022 9.4 8.6 - 10.4 mg/dL Final Sodium 06/10/2022 137 135 - 144 mmol/L Final Potassium 06/10/2022 4.4 3.7 - 5.3 mmol/L Final Chloride 06/10/2022 103 98 - 107 mmol/L Final CO2 06/10/2022 20 20 - 31 mmol/L Final Anion Gap 06/10/2022 14 9 - 17 mmol/L Final WBC 06/10/2022 10.3 3.5 - 11.0 k/uL Final RBC 06/10/2022 4.44 (A) 4.5 - 5.9 m/uL Final Hemoglobin 06/10/2022 13.7 13.5 - 17.5 g/dL Final Hematocrit 06/10/2022 40.7 (A) 41 - 53 % Final MCV 06/10/2022 91.5 80 - 100 fL Final MCH 06/10/2022 30.9 26 - 34 pg Final MCHC 06/10/2022 33.7 31 - 37 g/dL Final RDW 06/10/2022 15.0 (A) 11.5 - 14.9 % Final Platelets 06/10/2022 312 150 - 450 k/uL Final MPV 06/10/2022 8.2 6.0 - 12.0 fL Final POC Glucose 06/10/2022 244 (A) 75 - 110 mg/dL Final Reviewed patient's current plan of care and vital signs. Labs reviewed: [x] Yes Medications Current Facility-Administered Medications: brexpiprazole (REXULTI) tablet 1 mg, 1 mg, Oral, Daily allopurinol (ZYLOPRIM) tablet 100 mg, 100 mg, Oral, Daily ondansetron (ZOFRAN-ODT) disintegrating tablet 4 mg, 4 mg, Oral, Q8H PRN OR ondansetron (ZOFRAN) injection 4 mg, 4 mg, IntraVENous, Q6H PRN albuterol sulfate HFA (PROVENTIL;VENTOLIN;PROAIR) 108 (90 Base) MCG/ACT inhaler 2 puff, 2 puff, Inhalation, Q6H PRN ALPRAZolam (XANAX) tablet 0.5 mg, 0.5 mg, Oral, Nightly PRN atorvastatin (LIPITOR) tablet 20 mg, 20 mg, Oral, Nightly budesonide-formoterol (SYMBICORT) 80-4.5 MCG/ACT inhaler 2 puff, 2 puff, Inhalation, BID dextrose 10 % infusion, , IntraVENous, Continuous PRN dextrose bolus 10% 125 mL, 125 mL, IntraVENous, PRN OR dextrose bolus 10% 250 mL, 250 mL, IntraVENous, PRN glucagon (rDNA) injection 1 mg, 1 mg, IntraMUSCular, PRN glucose chewable tablet 16 g, 4 tablet, Oral, PRN heparin (porcine) injection 5,000 Units, 5,000 Units, SubCUTAneous, 3 times per day HYDROcodone-acetaminophen (NORCO) 5-325 MG per tablet 1 tablet, 1 tablet, Oral, Q6H PRN hyoscyamine (LEVSIN/SL) sublingual tablet 125 mcg, 125 mcg, SubLINGual, Q4H PRN insulin lispro (HUMALOG) injection vial 0-16 Units, 0-16 Units, SubCUTAneous, TID WC insulin lispro (HUMALOG) injection vial 0-4 Units, 0-4 Units, SubCUTAneous, Nightly lamoTRIgine (LAMICTAL) tablet 200 mg, 200 mg, Oral, Daily mirtazapine (REMERON) tablet 30 mg, 30 mg, Oral, Nightly pantoprazole (PROTONIX) tablet 40 mg, 40 mg, Oral, QAM AC propranolol (INDERAL) tablet 20 mg, 20 mg, Oral, TID tamsulosin (FLOMAX) capsule 0.4 mg, 0.4 mg, Oral, Daily venlafaxine (EFFEXOR XR) extended release capsule 150 mg, 150 mg, Oral, Daily vitamin D (ERGOCALCIFEROL) capsule 50,000 Units, 50,000 Units, Oral, Weekly acetaminophen (TYLENOL) tablet 650 mg, 650 mg, Oral, Q4H PRN polyethylene glycol (GLYCOLAX) packet 17 g, 17 g, Oral, Daily senna (SENOKOT) tablet 17.2 mg, 2 tablet, Oral, Daily PRN bisacodyl (DULCOLAX) suppository 10 mg, 10 mg, Rectal, Daily PRN ASSESSMENT DSM-5 Diagnosis: Major depressive disorder, recurrent, moderate Panic disorder BRITTANY Patient Active Problem List Diagnosis DAISY (acute kidney injury) (HCC) ARF (acute renal failure) (HCC) Chronic kidney disease Type 2 diabetes mellitus with stage 3a chronic kidney disease (HCC) Hyperlipidemia Primary hypertension Urinary tract obstruction by kidney stone Hydronephrosis of left kidney Atrophy of right kidney Left ureteral stone Debility BRITTANY (generalized anxiety disorder) Major depressive disorder, recurrent, moderate (HCC) Tremor PLAN Patient does not meet criteria for inpatient hospitalization at this time. Rexulti continued at 1mg daily. Will not taper further at this time. Would revisit if mood remains stable for several days. We will sign off on patient, please do not hesitate to contact us with any additional concerns. Thank you very much for allowing us to participate in the care of this patient. This report has been created using voice recognition software. It may contain minor errors which are inherent in voice recognition technology. * Kathy Pimentel MD - 06/10/2022 4:12 PM EST Images from the original note were not included. [facility] Neurology Specialist [address] [place] [address] PH: [phone] or [phone] FAX: [phone] Brief history: Steven Walden is a 62 y.o. old male admitted on 06/04/2022 with tremors Subjective: No new neurological events overnight. The patient resting comfortably. He denies any new complaints of weakness numbness tingling. He believes tremors are improved from yesterday. Objective: BP 117/89 Pulse 82 Temp 98.2 F (36.8 C) Resp 16 Ht 6' 3.98 (1.93 m) Wt (!) 351 lb 9.6 oz (159.5 kg) SpO2 96% BMI 42.82 kg/m Medications: brexpiprazole 1 mg Oral Daily allopurinol 100 mg Oral Daily atorvastatin 20 mg Oral Nightly budesonide-formoterol 2 puff Inhalation BID heparin (porcine) 5,000 Units SubCUTAneous 3 times per day insulin lispro 0-16 Units SubCUTAneous TID WC insulin lispro 0-4 Units SubCUTAneous Nightly lamoTRIgine 200 mg Oral Daily mirtazapine 30 mg Oral Nightly pantoprazole 40 mg Oral QAM AC propranolol 20 mg Oral TID tamsulosin 0.4 mg Oral Daily venlafaxine 150 mg Oral Daily vitamin D 50,000 Units Oral Weekly polyethylene glycol 17 g Oral Daily Neurological examination: Mental status Alert and oriented; intact memory with no confusion, speech or language problems; no hallucinationsor delusions Cranial nerves II - visual skaggs intact to confrontation III, IV, - extra-ocular muscles full: no pupillary defect; no [place], no nystagmus, no ptosis V - normal facial sensation VII - normal facial symmetry VIII - intact hearing IX, X - symmetrical palate XI - symmetrical shoulder shrug XII - midline tongue without atrophy or fasciculation Motor function Normal muscle bulk and tone; normal power 5/5, including fine motor movements Sensory function Intact to touch, pin, vibration, proprioception Cerebellar Mild positional tremors in both upper extremities, unchanged from yesterday. Reflex function Intact 2+ DTR and symmetric. Negative Babinski Gait Not tested No results found for: LDLCALC, LDLCHOLESTEROL, LDLDIRECT No components found for: CHLPL No results found for: TRIG No results found for: HDL No results found for: LDLCALC No results found for: LABVLDL Lab Results Component Value Date LABA1C 7.2 (H) 05/30/2022 Lab Results Component Value Date EAG 160 05/30/2022 No results found for: [id number] Neurological work up: Study Finding CT head CTA Head and neck MRI brain 06/02/2022 Unremarkable 2 D Echo KOFFI EEG Assessment and Recommendations: Mild positional tremor in both upper extremities with some cogwheel rigidity Patient with CKD stage III, hypertension, hyperlipidemia, history of anxiety and depression The patient does report improvement of tremors. He is currently on tapering dose of Rexulti Okay to discharge from neurological standpoint outpatient follow-up in next 4 to 6 weeks. We will sign off. Please call with questions. Thank you for the consult. Kathy Pimentel MD Neurology This note is created with the assistance of a speech-recognition program. While intending to generate a document that actually reflects the content of the visit, the document can still have some errors including those of syntax and sound a- like substitutions which may escape proofreading. In such instances, actual meaning can be extrapolated by contextual derivation. * Isha Mcdaniel RN - 06/10/2022 4:06 PM EST [employer] resumed care of patient at this time * Sahra Seay 06/10/2022 1:11 PM EST 06/10/22 1045 Encounter Summary Encounter Overview/Reason Spiritual/Emotional Needs Service Provided For: [facility] Spouse;Family members Last Encounter 06/10/22 Complexity of Encounter Low Begin Time 1045 End Time 1100 Total Time Calculated 15 min Spiritual/Emotional needs Type Spiritual Support Assessment/Intervention/Outcome Assessment Calm;Coping Intervention Active listening;Discussed illness injury and it s impact;Explored/Affirmed feelings, thoughts, concerns;Prayer (assurance of)/[place];Sustaining Presence/Ministry of presence Outcome Coping;Engaged in conversation;Expressed Gratitude;Receptive;Expressed feelings, needs, andconcerns * Marcus Yepez MD - 06/10/2022 12:34 PM EST Physical Medicine & Rehabilitation Progress Note 06/10/2022 12:34 PM CC: Ambulatory and ADL dysfunction status post nephrolithiasis/stent. Subjective: Continues with tremors possibly mildly decreased otherwise no complaints. Adjustments noted. ROS: Denies fevers, chills, sweats. No chest pain, palpitations, lightheadedness. Denies coughing, wheezing or shortness of breath. Denies abdominal pain, nausea, diarrhea or constipation. No new areas of joint pain. Denies new areas of numbness or weakness. Denies new anxiety or depression issues. No new skin problems. Rehabilitation: PT: Restrictions/Precautions: Fall Risk, General Precautions, Up as Tolerated Other position/activity restrictions: up with assist, ureteral stent 05/29 Transfers Sit to Stand: Independent Stand to Sit: Independent Bed to Chair: Contact guard assistance Stand Pivot Transfers: Independent (no AD or UE support) Comment: RW used for transfers. Generally, good hand placement, with some cues at times to correct Ambulation Surface: Level tile, Ramp Device: No Device Other Apparatus: Wheelchair follow Assistance: Independent Quality of Gait: narrow step width, bilateral hip external rotation,mild tremors Gait Deviations: Slow Reyna, Decreased step length, Decreased step height, Decreased arm swing Distance: 300 and 340 ft including ramp 80 ft Comments: no complaints More Ambulation?: Yes OT: ADL Feeding: Setup Feeding Skilled Clinical Factors: reports slight trouble due to tremors Grooming: Minimal assistance Grooming Skilled Clinical Factors: Minimal assist for standing balance at sink. Supervision while seated in w/c at sink UE Bathing: Stand by assistance UE Bathing Skilled Clinical Factors: seated on tub transfer bench in shower LE Bathing: Contact guard assistance LE Bathing Skilled Clinical Factors: Minimal assist standing balance for buttocks while standing; SBA for all other tasks while seated UE Dressing: Stand by assistance UE Dressing Skilled Clinical Factors: overhead shirt LE Dressing: Moderate assistance LE Dressing Skilled Clinical Factors: assist to thread L LE this date into pants; SBA thread B LE underwear & R LE into pants. HEATHER hose measured and applied. Assist to don B socks Toileting: Minimal assistance Toileting Skilled Clinical Factors: Minimal assist standing balance for clothing management and personal hygiene Additional Comments: OT facilitated patient engagement in showering routine including bathing, dressing, toileting, and grooming tasks this date. Please see above for details. Patient reports high motivation with independence with self- care and occupational therapy. Throughout standing tolerance tasks, patient's B LE were intermittently shaking. Patient reports it is weakness. Balance Sitting Balance: Stand by assistance Standing Balance: Minimal assistance (Min/CGA) Standing Balance Time: 3 minutes x 1, 30-60 seconds x 4 Activity: self-care tasks Functional Mobility Functional - Mobility Device: Rolling Walker Activity: To/from bathroom Assist Level: Minimal assistance Functional Mobility Comments: with Minimal verbal cues for safety Bed mobility Rolling to Left: Independent Rolling to Right: Minimal assistance Supine to Sit: Independent Sit to Supine: Independent Scooting: Independent Bed Mobility Comments: up in recliner Transfers Sit to stand: Contact guard assistance Stand to sit: Contact guard assistance Transfer Comments: with Minimal VCs for hand placement Toilet Transfers Toilet - Technique: Ambulating Equipment Used: Extra wide bedside commode Toilet Transfer: Minimal assistance Toilet Transfers Comments: bariatric BSC placed over toilet Shower Transfers Shower - Transfer From: Walker Shower - Transfer Type: To and From Shower - Transfer To: Transfer tub bench Shower - Technique: Ambulating Shower Transfers: Minimal assistance Shower Transfers Comments: with VCs for technique ST: Objective: BP 126/87 Pulse 69 Temp 98.2 F (36.8 C) Resp 16 Ht 6' 3.98 (1.93 m) Wt (!) 351 lb 9.6 oz(159.5 kg) SpO2 96% BMI 42.82 kg/m I Body mass index is 42.82 kg/m . I Wt Readings from Last 1 Encounters: 06/09/22 (!) 351 lb 9.6 oz (159.5 kg) Temp (24hrs), Av.4 F (36.9 C), Min:98.2 F (36.8 C), Max:98.6 F (37 C) GEN: well developed, well nourished, no acute distress HEENT: Normocephalic atraumatic, EOMI, mucous membranes pink and moist CV: RRR, no murmurs, rubs or gallops PULM: CTAB, no rales or rhonchi. Respirations WNL and unlabored ABD: soft, NT, ND, +BS and equal NEURO: A&O x3. Sensation intact to light touch. Intentional tremors bilateral upper extremities MSK: Range of motion 4+/5 upper and distal lower extremities EXTREMITIES: No calf tenderness to palpation bilaterally. No edema BLEs SKIN: warm dry and intact with good turgor PSYCH: appropriately interactive. Affect WNL. Medications Scheduled Meds: brexpiprazole 1 mg Oral Daily allopurinol 100 mg Oral Daily atorvastatin 20 mg Oral Nightly budesonide-formoterol 2 puff Inhalation BID heparin (porcine) 5,000 Units SubCUTAneous 3 times per day insulin lispro 0-16 Units SubCUTAneous TID WC insulin lispro 0-4 Units SubCUTAneous Nightly lamoTRIgine 200 mg Oral Daily mirtazapine 30 mg Oral Nightly pantoprazole 40 mg Oral QAM AC propranolol 20 mg Oral TID tamsulosin 0.4 mg Oral Daily venlafaxine 150 mg Oral Daily vitamin D 50,000 Units Oral Weekly polyethylene glycol 17 g Oral Daily Continuous Infusions: dextrose PRN Meds:.ondansetron OR ondansetron, albuterol sulfate HFA, ALPRAZolam, dextrose, dextrose bolus OR dextrose bolus, glucagon (rDNA), glucose, HYDROcodone 5 mg - acetaminophen, hyoscyamine, acetaminophen, senna, bisacodyl Diagnostics: CBC: No results for input(s): WBC, RBC, HGB, HCT, MCV, RDW, PLT in the last 72 hours. BMP: No results for input(s): NA, K, CL, CO2, PHOS, BUN, CREATININE, CA in the last 72 hours. BNP: No results for input(s): BNP in the last 72 hours. PT/INR: No results for input(s): PROTIME, INR in the last 72 hours. APTT: No results for input(s): APTT in the last 72 hours. CARDIAC ENZYMES: No results for input(s): CKMB, CKMBINDEX, TROPONINT in the last 72 hours. Invalid input(s): CKTOTAL;3 FASTING LIPID PANEL:No results found for: CHOL, HDL, TRIG LIVER PROFILE: No results for input(s): AST, ALT, ALB, BILIDIR, BILITOT, ALKPHOS in the last 72 hours. I/O (24Hr): Intake/Output Summary (Last 24 hours) at 06/10/2022 1234 Last data filed at 06/10/2022 0700 Gross per 24 hour Intake 240 ml Output 1200 ml Net -960 ml Glu last 24 hour Recent Labs 06/09/22 1618 06/09/22 2055 06/10/22 0529 06/10/22 1121 POCGLU 232* 175* 208* 223* No results for input(s): CLARITYU, COLORU, PHUR, SPECGRAV, PROTEINU, RBCUA, BLOODU, BACTERIA, NITRU, WBCUA, LEUKOCYTESUR, YEAST, GLUCOSEU, BILIRUBINUR in the last 72 hours. Impression/Plan: Impaired ADLs, gait, and mobility due to: Debility secondary to obstructing nephrolithiasis: s/p L ureteral stent 05/28/22. Carballo removed 06/02. PT/OT for gait, mobility, strengthening, endurance, ADLs, and self care. Has Lena prn pain discharge plan 06/11 Carballo removed 06/02 on Keflex until 06/09/22. Voiding well per nursing- DAISY on CKD III: Will monitor. Lisinopril and aldactone were held in the hospital. Creatinine stable2.11 Tremors: on propranolol. Possibly medication induced vs anxiety- Rexulti dose adjusted by psychiatry will follow with slow taper as outpatient. neuro, checking lamotrigine level 3.3 Anemia: Hb mildly reduced. Will monitor. HTN/HLD: on amlodipine, atorvastatin monitor blood pressure as lisinopril Aldactone were held in hospital, internal medicine follow DM: on U500 50 units BID DC'd 06/05 and sliding scale. IM following, glucose as above was on dulaglutide clarify if resume on discharge with internal medicine Asthma: Albuterol prn and Symbicort BID Gout: was on allopurinol at home -resume Major Depressive Disorder, Recurrent Moderate: on Rexulti, Remeron, Effexor, Lamictal. Psych follow-up has not used Xanax SHADE: has home CPAP at hs. Panic Disorder, Generalized Anxiety Disorder: Hax Xanax prn. On propranolol TID. Psychiatry recommended outpatient CBT.-Psych signed off Hx peptic ulcer: was on omeprazole prn at home. On Levsin prn as adjunct therapy. BPH: on tamsulosin Vitamin D deficiency: on repletion Morbid obesity: BMI 43.95. Dietitian following Bowel Management: Miralax daily, senokot prn, dulcolax prn. DVT Prophylaxis: heparin, SCD's while in bed, and HEATHER's during the day Internal medicine for medical management DC 06/11 okay with internal medicine/[id number] with 1. Yoana Randle MD 2. Neurology - Margarito 3. Urology 4. Psychiatry- Gisele win 5. Nephrology Dr. Triplett 1-2 weeks, monitor glucose, out patient therapy, no driving, weekly BMP x4 results to Dr. Triplett, clarify diabetic man on discharge dulaglutide Marcus Garcia MD This note is created with the assistance of a speech recognition program. While intending to generate a document that actually reflects the content of the visit, the document can still have some errors including those of syntax and sound a like substitutions which may escape proof reading. In such instances, actual meaning can be extrapolated by contextual diversion * Chris Gordon MD - 06/09/2022 8:49 PM EST Department of Psychiatry Consult Progress Note 06/09/2022 Patient Name: Steven Walden Reason for initial consult: Depression with anxiety Interval History: The patient was seen [id number]. He is sitting out of bed in a chair. His mood appears to be euthymic. He states his symptoms of tremors are well controlled. At this time he is denying any suicidalideation. The patient has been seen by neurology and they have asked about weaning him off Rexulti.We will taper the dose of Rexulti as noted below. Mental Status Exam Level of consciousness: Alert and awake Appearance: Appropriate attire for setting, seated in chair, with fair grooming and hygiene Behavior/Motor: Approachable, no e/o tremor. No psychomotor abnormalities Attitude toward examiner: Cooperative, attentive, good eye contact Speech: normal rate and normal volume Mood: euthymic Affect: Congruent Thought processes: linear, goal directed, and coherent Thought content: Denies homicidal ideation Suicidal Ideation: Denies suicidal ideations, contracts for safety on the unit. Delusions: No evidence of delusions. Perceptual Disturbance: Patient does not appear to be responding to internal stimuli. Cognition: Oriented to self, location, time, and situation Memory: intact Insight: good Judgement: good Data height is 6' 3.98 (1.93 m) and weight is 351 lb 9.6 oz (159.5 kg) (abnormal). His temperature is 98.6 F (37 C). His blood pressure is 125/79 and his pulse is 73. His respiration is 18 and oxygen saturation is 96%. Labs: Admission on 06/04/2022 Component Date Value Ref Range Status Glucose 06/05/2022 171 (A) 70 - 99 mg/dL Final BUN 06/05/2022 27 (A) 8 - 23 mg/dL Final Creatinine 06/05/2022 2.07 (A) 0.70 - 1.20 mg/dL Final Est, Glom Filt Rate 06/05/2022 36 (A) >60 mL/min/1.73m2 Final Comment: These results are not intended for use in patients <18 years of age. eGFR results are calculated without a race factor using the 2020 CKD-EPI equation. Careful clinical correlation is recommended, particularly when comparing to results calculated using previous equations. The CKD-EPI equation is less accurate in patients with extremes of muscle mass, extra-renal metabolism of creatine, excessive creatine ingestion, or following therapy that affects renal tubular secretion. Calcium 06/05/2022 8.9 8.6 - 10.4 mg/dL Final Sodium 06/05/2022 140 135 - 144 mmol/L Final Potassium 06/05/2022 3.7 3.7 - 5.3 mmol/L Final Chloride 06/05/2022 105 98 - 107 mmol/L Final CO2 06/05/2022 24 20 - 31 mmol/L Final Anion Gap 06/05/2022 11 9 - 17 mmol/L Final Albumin 06/05/2022 3.4 (A) 3.5 - 5.2 g/dL Final Alkaline Phosphatase 06/05/2022 92 40 - 129 U/L Final ALT 06/05/2022 33 5 - 41 U/L Final AST 06/05/2022 30 <40 U/L Final Total Bilirubin 06/05/2022 0.4 0.3 - 1.2 mg/dL Final Bilirubin, Direct 06/05/2022 0.1 <0.3 mg/dL Final Bilirubin, Indirect 06/05/2022 0.3 0.0 - 1.0 mg/dL Final Total Protein 06/05/2022 7.2 6.4 - 8.3 g/dL Final WBC 06/05/2022 10.4 3.5 - 11.0 k/uL Final RBC 06/05/2022 4.03 (A) 4.5 - 5.9 m/uL Final Hemoglobin 06/05/2022 12.5 (A) 13.5 - 17.5 g/dL Final Hematocrit 06/05/2022 38.0 (A) 41 - 53 % Final MCV 06/05/2022 94.2 80 - 100 fL Final MCH 06/05/2022 31.1 26 - 34 pg Final MCHC 06/05/2022 33.1 31 - 37 g/dL Final RDW 06/05/2022 14.3 11.5 - 14.9 % Final Platelets 06/05/2022 357 150 - 450 k/uL Final MPV 06/05/2022 7.4 6.0 - 12.0 fL Final Seg Neutrophils 06/05/2022 62 36 - 66 % Final Lymphocytes 06/05/2022 24 24 - 44 % Final Monocytes 06/05/2022 8 (A) 1 - 7 % Final Eosinophils % 06/05/2022 5 (A) 0 - 4 % Final Basophils 06/05/2022 1 0 - 2 % Final Segs Absolute 06/05/2022 6.45 1.3 - 9.1 k/uL Final Absolute Lymph # 06/05/2022 2.50 1.0 - 4.8 k/uL Final Absolute [place] # 06/05/2022 0.83 0.1 - 1.3 k/uL Final Absolute Eos # 06/05/2022 0.52 (A) 0.0 - 0.4 k/uL Final Basophils Absolute 06/05/2022 0.10 0.0 - 0.2 k/uL Final Morphology 06/05/2022 ANISOCYTOSIS PRESENT Final POC Glucose 06/04/2022 213 (A) 75 - 110 mg/dL Final POC Glucose 06/05/2022 156 (A) 75 - 110 mg/dL Final POC Glucose 06/05/2022 218 (A) 75 - 110 mg/dL Final POC Glucose 06/05/2022 178 (A) 75 - 110 mg/dL Final POC Glucose 06/05/2022 216 (A) 75 - 110 mg/dL Final POC Glucose 06/06/2022 158 (A) 75 - 110 mg/dL Final POC Glucose 06/06/2022 255 (A) 75 - 110 mg/dL Final POC Glucose 06/06/2022 133 (A) 75 - 110 mg/dL Final POC Glucose 06/06/2022 209 (A) 75 - 110 mg/dL Final POC Glucose 06/07/2022 181 (A) 75 - 110 mg/dL Final POC Glucose 06/07/2022 180 (A) 75 - 110 mg/dL Final POC Glucose 06/07/2022 221 (A) 75 - 110 mg/dL Final POC Glucose 06/07/2022 219 (A) 75 - 110 mg/dL Final POC Glucose 06/08/2022 175 (A) 75 - 110 mg/dL Final POC Glucose 06/08/2022 248 (A) 75 - 110 mg/dL Final POC Glucose 06/08/2022 216 (A) 75 - 110 mg/dL Final POC Glucose 06/08/2022 202 (A) 75 - 110 mg/dL Final POC Glucose 06/09/2022 187 (A) 75 - 110 mg/dL Final POC Glucose 06/09/2022 215 (A) 75 - 110 mg/dL Final POC Glucose 06/09/2022 232 (A) 75 - 110 mg/dL Final Reviewed patient's current plan of care and vital signs. Labs reviewed: [x] Yes Medications Current Facility-Administered Medications: [START ON 06/10/2022] brexpiprazole (REXULTI) tablet 1 mg,1 mg, Oral, Daily allopurinol (ZYLOPRIM) tablet 100 mg, 100 mg, Oral, Daily ondansetron (ZOFRAN-ODT) disintegrating tablet 4 mg, 4 mg, Oral, Q8H PRN OR ondansetron (ZOFRAN) injection 4 mg, 4 mg, IntraVENous, Q6H PRN albuterol sulfate HFA (PROVENTIL;VENTOLIN;PROAIR) 108 (90 Base) MCG/ACT inhaler 2 puff, 2 puff, Inhalation, Q6H PRN ALPRAZolam (XANAX) tablet 0.5 mg, 0.5 mg, Oral, Nightly PRN atorvastatin (LIPITOR) tablet 20 mg, 20 mg, Oral, Nightly budesonide-formoterol (SYMBICORT) 80-4.5 MCG/ACT inhaler 2 puff, 2 puff, Inhalation, BID dextrose 10 % infusion, , IntraVENous, Continuous PRN dextrose bolus 10% 125 mL, 125 mL, IntraVENous, PRN OR dextrose bolus 10% 250 mL, 250 mL, IntraVENous, PRN glucagon (rDNA) injection 1 mg, 1 mg, IntraMUSCular, PRN glucose chewable tablet 16 g, 4 tablet, Oral, PRN heparin (porcine) injection 5,000 Units, 5,000 Units, SubCUTAneous, 3 times per day HYDROcodone-acetaminophen (NORCO) 5-325 MG per tablet 1 tablet, 1 tablet, Oral, Q6H PRN hyoscyamine (LEVSIN/SL) sublingual tablet 125 mcg, 125 mcg, SubLINGual, Q4H PRN insulin lispro (HUMALOG) injection vial 0-16 Units, 0-16 Units, SubCUTAneous, TID WC insulin lispro (HUMALOG) injection vial 0-4 Units, 0-4 Units, SubCUTAneous, Nightly lamoTRIgine (LAMICTAL) tablet 200 mg, 200 mg, Oral, Daily mirtazapine (REMERON) tablet 30 mg, 30 mg, Oral, Nightly pantoprazole (PROTONIX) tablet 40 mg, 40 mg, Oral, QAM AC propranolol (INDERAL) tablet 20 mg, 20 mg, Oral, TID tamsulosin (FLOMAX) capsule 0.4 mg, 0.4 mg, Oral, Daily venlafaxine (EFFEXOR XR) extended release capsule 150 mg, 150 mg, Oral, Daily vitamin D (ERGOCALCIFEROL) capsule 50,000 Units, 50,000 Units, Oral, Weekly acetaminophen (TYLENOL) tablet 650 mg, 650 mg, Oral, Q4H PRN polyethylene glycol (GLYCOLAX) packet 17 g, 17 g, Oral, Daily senna (SENOKOT) tablet 17.2 mg, 2 tablet, Oral, Daily PRN bisacodyl (DULCOLAX) suppository 10 mg, 10 mg, Rectal, Daily PRN ASSESSMENT DSM-5 Diagnosis: Major depressive disorder, recurrent, moderate Panic disorder BRITTANY Patient Active Problem List Diagnosis DAISY (acute kidney injury) (HCC) ARF (acute renal failure) (HCC) Chronic kidney disease Type 2 diabetes mellitus with stage 3a chronic kidney disease (HCC) Hyperlipidemia Primary hypertension Urinary tract obstruction by kidney stone Hydronephrosis of left kidney Atrophy of right kidney Left ureteral stone Debility BRITTANY (generalized anxiety disorder) Major depressive disorder, recurrent, moderate (HCC) Tremor PLAN Patient does not meet criteria for inpatient hospitalization at this time. Rexulti decreased to 1mg daily. Will follow and wean gradually. We will sign off on patient, please do not hesitate to contact us with any additional concerns. Thank you very much for allowing us to participate in the care of this patient. This report has been created using voice recognition software. It may contain minor errors which are inherent in voice recognition technology. * Joelle Burks, STOCKKEEPER - 06/09/2022 3:33 PM EST Physical Therapy Facility/Department: [facility] Rehabilitation Physical Therapy Progress Note NAME: Steven Walden : 1960 (62 y.o.) CODE STATUS: Full Code Date of Service: 06/09/22 Additional Pertinent Hx: Steven Walden is a 62 y.o. male with history of HTN, HLD, diabetes, CKD, peptic ulcer, gout, and depression admitted to [facility] on 05/28/2022. He initially presented to [facility] with flank pain and fever for 2 days. He was found to have obstructing kidney stone andAKI. He underwent urethral dilation, cystoscopy, left ureteral stent insertion, and difficult foleycatheter insertion on 05/28/22 (Dr. Myles). He reports tremors in all limbs, which are improvingoverall. He also notes mild shortness of breath and chronic numbness/tingling in the bilateral feet. He denies any pain and any other acute concerns. Admitted to rehab unit on 06/04/22. Family / Caregiver Present: No Referring Practitioner: Dr Mckeon Referral Date : 06/04/22 Diagnosis: Debility General Comment Comments: pt defers family transfer training, pt demonstrates mod I /I functional mobility and transfers and able to request assistance as needed. PT Mod I/I in room , nursing notified , pt educated use of call light system if needed Restrictions: Restrictions/Precautions: Fall Risk;General Precautions;Up as Tolerated Position Activity Restriction Other position/activity restrictions: up with assist, ureteral stent 05/29 SUBJECTIVE Subjective: pt reports MATHEW 8 inch height Pain: Patient denies pain. OBJECTIVE Vision Vision: Impaired Vision Exceptions: Wears glasses at all times Hearing Hearing: Within functional limits Cognition Overall Cognitive Status: WFL Sensation Overall Sensation Status: Impaired (pt reported neuropathy in bilateral feet, primarily the soles of his feet) Functional Mobility Bed mobility Rolling to Left: Independent Supine to Sit: Independent Sit to Supine: Independent Scooting: Independent Transfers Sit to Stand: Independent Stand to Sit: Independent Stand Pivot Transfers: Supervision;Independent (no AD or UE support) Balance Posture: Fair Sitting - Static: Good Sitting - Dynamic: Good;- Standing - Static: Good Standing - Dynamic: Fair Environmental Mobility Ambulation Surface: Level tile;Ramp Device: No Device Assistance: Independent Quality of Gait: narrow step width, bilateral hip external rotation,mild tremors Gait Deviations: Slow Reyna;Decreased step length;Decreased step height;Decreased arm swing Distance: 175 ft and 150 ft Comments: no complaints More Ambulation?: Yes Ambulation 2 Surface - 2: level tile Device 2: No device Assistance 2: Independent Quality of Gait 2: narrow step width , bilateral hip external rotation, mild tremors Gait Deviations: Decreased step height;Slow Reyna;Decreased arm swing Distance: 155 ft x 2 Comments: VCs increased arm swing Stairs/Curb Stairs?: Yes Stairs # Steps : 8 Stairs Height: 8 (box step) Rails: Right ascending (and left ascending) Assistance: Modified independent Comment: good technique PT Exercises Exercise Treatment: VCs and return demonstration HEP with written instructions (VCs for balance andenergy conservation) PROM Exercises: PROM bilateral hamstring and gastrocnemius seated Resistive Exercises: seated bilateral LE 2# x 15 Motor Control/Coordination: advanced gait training , weaving cones 180 degree to 30 degree turns , hurdles 4 inch fwd and bilateral lateral , forward 12 inch (no LOB or contact with cones) Exercise Equipment: nustep L4 10 minutes ASSESSMENT Vitals O2 Device: None (Room air) Activity Tolerance Activity Tolerance: Patient tolerated treatment well Assessment Treatment Diagnosis: Impaired function. Therapy Prognosis: Good Decision Making: Medium Complexity History: B UE/LE tremors, Hx of depression Discharge Recommendations: Home with assist PRN;Patient would benefit from continued therapy after discharge;Therapy recommended at discharge PT D/C Equipment Other: none PT Equipment Recommendations Other: none GOALS Patient Goals Patient Goals : get better, go home Short Term Goals Time Frame for Short Term Goals: 5 days Short Term Goal 1: Independent bed mobility Short Term Goal 2: SBA transfers Short Term Goal 3: SBA gait with appropriate device 150' to 200'. Short Term Goal 4: stair ambulation x 10 steps with 1 HR and CGA+1 Short Term Goal 5: ambulation with assistive device on ramp 50 ft x 2, CGA Halfway Goals Time Frame for Water And Gas Helper Goals : By DC Halfway Goal 1: Mod-I transfers Halfway Goal 2: Mod-I gait withleast restricitive device distance of 150 ft on level as well as incline surfaces. Halfway Goal 3: Pt able to go up and down 8 to 12 steps with 1 UE support at supervision level. Halfway Goal 4: Improve 2MWT distance to atleast 150 ft to improve activity tolerance and gait speed. Water And Gas Helper Goal 5: 5 X sit<>stand without UE support in < 20 seconds to improve fluidity for transfers/mobility PLAN OF CARE Frequency: 1-2 treatment sessions per day, 5-7 days per week Physcial Therapy Plan General Plan: 60-120 minutes of therapy at least 5 out of 7 days a week (5 to 7 days/week) Current Treatment Recommendations: Strengthening;ROM;Balance training;Functional mobility training;Transfer training;Endurance training;Gait training;Stair training;Neuromuscular re-education;Home exercise program;Safety education & training;Patient/Caregiver education & training;Equipment evaluation, education, & procurement;Positioning;Therapeutic activities Safety Devices Type of Devices: Call light within reach;Gait belt;Patient at risk for falls;Left in chair EDUCATION Education Education Given To: Patient Education Provided: Mobility Training;Transfer Training;Fall Prevention Strategies;Energy Conservation;Home Exercise Program Education Method: Verbal;Demonstration Barriers to Learning: None Education Outcome: Verbalized understanding;Demonstrated understanding 06/09/22 1217 06/09/22 1356 PT Individual Minutes Time In 0959 1258 Time Out 1059 1328 Minutes 60 30 Joelle Burks PTA, 06/09/22 at 3:38 PM * Kathy Pimentel MD - 06/09/2022 3:30 PM EST Images from the original note were not included. [facility] Neurology Specialist [address] [place] [address] PH: [phone] or [phone] FAX: [phone] Brief history: Steven Walden is a 62 y.o. old male admitted on 06/04/2022 with tremors Subjective: No new neurological events overnight. The patient reports tremors are improved. Objective: BP (!) 143/82 Pulse 72 Temp 97.5 F (36.4 C) Resp 16 Ht 6' 3.98 (1.93 m) Wt (!) 351 lb 9.6 oz (159.5 kg) SpO2 95% BMI 42.82 kg/m Medications: allopurinol 100 mg Oral Daily atorvastatin 20 mg Oral Nightly brexpiprazole 2 mg Oral Daily budesonide-formoterol 2 puff Inhalation BID heparin (porcine) 5,000 Units SubCUTAneous 3 times per day insulin lispro 0-16 Units SubCUTAneous TID WC insulin lispro 0-4 Units SubCUTAneous Nightly lamoTRIgine 200 mg Oral Daily mirtazapine 30 mg Oral Nightly pantoprazole 40 mg Oral QAM AC propranolol 20 mg Oral TID tamsulosin 0.4 mg Oral Daily venlafaxine 150 mg Oral Daily vitamin D 50,000 Units Oral Weekly polyethylene glycol 17 g Oral Daily Neurological examination: Mental status Alert and oriented; intact memory with no confusion, speech or language problems; no hallucinationsor delusions Cranial nerves II - visual skaggs intact to confrontation III, IV, - extra-ocular muscles full: no pupillary defect; no DAYTON, no nystagmus, no ptosis V - normal facial sensation VII - normal facial symmetry VIII - intact hearing IX, X - symmetrical palate XI - symmetrical shoulder shrug XII - midline tongue without atrophy or fasciculation Motor function Normal muscle bulk and tone; normal power 5/5, including fine motor movements Sensory function Intact to touch, pin, vibration, proprioception Cerebellar Mild positional tremors in both upper extremities, unchanged from yesterday. Reflex function Intact 2+ DTR and symmetric. Negative Babinski Gait Not tested No results found for: LDLCALC, LDLCHOLESTEROL, LDLDIRECT No components found for: CHLPL No results found for: TRIG No results found for: HDL No results found for: LDLCALC No results found for: LABVLDL Lab Results Component Value Date LABA1C 7.2 (H) 05/30/2022 Lab Results Component Value Date EAG 160 05/30/2022 No results found for: [id number] Neurological work up: Study Finding CT head CTA Head and neck MRI brain 06/02/2022 Unremarkable 2 D Echo KOFFI EEG Assessment and Recommendations: Mild positional tremor in both upper extremities with some cogwheel rigidity Patient with CKD stage III, hypertension, hyperlipidemia, history of anxiety and depression Tremors are improved from yesterday. Await psych input if Rexulti can be weaned off Patient to follow-up with neurology in outpatient in next 4 to 6 weeks We will follow. Kathy Pimentel MD Neurology This note is created with the assistance of a speech-recognition program. While intending to generate a document that actually reflects the content of the visit, the document can still have some errors including those of syntax and sound a- like substitutions which may escape proofreading. In such instances, actual meaning can be extrapolated by contextual derivation. * SANCHEZ Saba - 06/09/2022 3:25 PM EST [facility] Acute Rehabilitation Occupational Therapy Daily Treatment Note Date: 06/09/22 Patient Name: Steven Walden Room: 2609/2609-01 Account: [id number] : 1960 (62 y.o.) Gender: male Referring Practitioner: Sachin Mckeon MD Diagnosis: Debility Treatment Diagnosis: Impaired self-care status. Past Medical History: has a past medical history of Anxiety, Chronic kidney disease, Congenital heart defect, Diabetes mellitus (HCC), Gout, Hyperlipidemia, Hypertension, Major depressive disorder, Morbid obesity (HCC), Neuropathy, SHADE (obstructive sleep apnea), and Peptic ulcer disease. Past Surgical History: has a past surgical history that includes Cholecystectomy (2010); Hand surgery (Right, 12/2021); and Cystoscopy (Left, 05/28/2022). Restrictions Restrictions/Precautions Restrictions/Precautions: Fall Risk, General Precautions, Up as Tolerated Required Braces or Orthoses?: No Position Activity Restriction Other position/activity restrictions: up with assist, ureteral stent 05/29 Vitals Vital Signs O2 Device: None (Room air) Subjective Subjective Subjective: i think I'll wash up for the most part. Pain: denies pain Pain Assessment Pain Assessment: None - Denies Pain Objective Cognition Overall Orientation Status: Within Functional Limits Orientation Level: Oriented X4 Cognition Overall Cognitive Status: WFL Activities of Daily Living Feeding Assistance Level: Modified independent Skilled Clinical Factors: utilizes weighted utenils for increased control from tremors per pt report Grooming/Oral Hygiene Assistance Level: Modified independent Skilled Clinical Factors: Completes oral care, washing face, and shaving face seated in w/c Upper Extremity Bathing Assistance Level: Modified independent Skilled Clinical Factors: seated in w/c sink level Lower Extremity Bathing Assistance Level: Modified independent Skilled Clinical Factors: able to wash BLEs while seated in w/c displaying trunk flexion, did not wash braxton/buttock area this date Upper Extremity Dressing Assistance Level: Modified independent Skilled Clinical Factors: able to don/doff [place] shirt with ease Lower Extremity Dressing Assistance Level: Supervision Skilled Clinical Factors: seated to thread/unthread pants and able to stand with sink for UE support to place clothing on/off hips Putting On/Taking Off Footwear Assistance Level: Modified independent Skilled Clinical Factors: able to doff footies and shoes with increased trunk flexion and don shoesand footies with figure 4 tech; declines TEDs Pet Care Pet Care Level: (no device) Pet Care Level of Assistance: Supervision Pet Care: pt engagement in simulated pet care activity to address increased indep and safety for IADLs. Pt instructed to gather all neccessary items from various surface levels (/lower cabinets./floor level). Pt able ambulate around therapy gym with no device, SUP reaching within and outside ELSA with no gross LOB. Pt tolerated well. Mobility Sit to Stand Assistance Level: Independent Skilled Clinical Factors: G hand placement. Stand to Sit Assistance Level: Independent Skilled Clinical Factors: G hand placement, safe descend. Functional Mobility Device: Rolling walker (MOD IND with RW and SUP with no device) Activity: To/From bathroom;To/From therapy gym Assistance Level: Supervision Skilled Clinical Factors: no LOB, 1-2 vc on spatial awareness/ safety; functional mobility completed with RW in AM and no device in PM OT Exercises Exercise Treatment: Engaged pt in BUE ex's for overall strengthening needed for increased indep with IADL tasks. Completed X20 reps ea in all available planes upgrading to 3# free weight. . Pt. tolerated well. Resistive Exercises: Green theraflex bar exercises utilized for 25 reps to address strength and endurance to increase indep and safety with ADLs and IADLs. G tolerance Dynamic Standing Balance Exercises: Facilitated pt engagement in multiple standing table top tasks for increased balance, standing, and activity tolerance needed for improved performance in householdtasks. Pt tolerated standing 6-7 mins and 4-5 min with seated RB and no LOB Motor Control/Coordination: Pt engagement in seated table top task,retrieval and placement of keyedpegs onto knotched baord alternating hands . Addressing FMC, finger isolation, in-hand manipulation, shifting and rotation. pt verbalizes increased difficulty and increased time for completion and tolerated well. Additional Activities Additional Activities Comment: pt engagement in functional mobility around kitchen retrievaing and transporting cones from various heights (upper cabinets/lower cabinets/floor level/ in refridgerator/oven) to address abiltiy to self correct should balance be lost in prep for d/c to private residence . Pt able to complete with no device with SUP 1-2 vc for scanning enviornement to avoid expected/ unexpected obstacles. Pt able to demo safe reaching technques avoiding excessive reaching/bending with no LOB noted. Assessment Assessment Activity Tolerance: Patient tolerated treatment well Discharge Recommendations: Home with assist PRN;Patient would benefit from continued therapy after discharge Patient Education Education Education Given To: Patient Education Provided: Role of Therapy;Plan of Care;ADL Function;Mobility Training;Transfer Training;Home Exercise Program;IADL Function;Safety Education Method: Verbal;Demonstration Barriers to Learning: None Education Outcome: Verbalized understanding;Continued education needed OT Equipment Recommendations ADL Assistive Devices: Land Reclamation Specialist;Sock-Aid Hard;Long-handled Shoe Horn Safety Devices Safety Devices in place: Yes Type of devices: Left in chair;Call light within reach Goals Patient Goals Patient goals : To return to home Short Term Goals Time Frame for Short Term Goals: 5 to 7 days Short Term Goal 1: Patient will verbalize/demonstrate Good understanding of assistive equipment/durable medical equipment/modified techniques to promote increased safety and independence with self-care. Short Term Goal 2: Patient will verbalize/demonstrate Good understanding of Fall Prevention Strategies to promote increased safety and independence with self-care. Short Term Goal 3: Patient will perform lower body bathing and dressing with stand by assist. Short Term Goal 4: Patient will perform toileting tasks with stand by assist and toilet transfer with stand by assist, RW, and Good safety. Short Term Goal 5: Patient will actively participate in 30+ minutes of therapeutic exercise/functional activities to promote increased independence with self-care and mobility Water And Gas Helper Goals Time Frame for Water And Gas Helper Goals : By discharge Water And Gas Helper Goal 1: Patient will perform BADLs with modified independence and Good safety. Water And Gas Helper Goal 2: Patient will perform functional mobility and transfers during self-care with modified independence, least restrictive mobility device, and good safety. Halfway Goal 3: Patient will stand for 10+ minutes with 0-1 UE support, modified independence, and no LOB while engaging functional activity of choice. Water And Gas Helper Goal 4: Patient will perform simple meal prep (i.e. breakfast sandwich) with modified independence. Halfway Goal 5: Patient will perform pet care (i.e. feeding his dog Pumpkin, taking her outside on leash) with stand by assist. Halfway Goal 6: Patient will perform self-care with improved bilateral fine motor control as evidenced by bilateral 5 second improvement in 9 hole peg test. Water And Gas Helper Goal 7: Patient will perform self-care with improved R hand uniform designer strength as evidenced by10# improvement in dynamometer test score. Plan Occupational Therapy Plan Times Per Week: 5-7 Times Per Day: Twice a day Current Treatment Recommendations: Self-Care / ADL, Home management training, Strengthening, Balance training, Functional mobility training, Endurance training, Safety education & training, Patient/Caregiver education & training, Equipment evaluation, education, & procurement 06/09/22 0901 06/09/22 1332 OT Individual Minutes Time In 0800 1332 Time Out 0901 1403 Minutes 61 31 * Marcus Yepez MD - 06/09/2022 9:49 AM EST Physical Medicine & Rehabilitation Progress Note 06/09/2022 9:49 AM CC: Ambulatory and ADL dysfunction status post nephrolithiasis/stent. Subjective: Continues with tremors possibly mildly decreased otherwise no complaints. Feels well. ROS: Denies fevers, chills, sweats. No chest pain, palpitations, lightheadedness. Denies coughing, wheezing or shortness of breath. Denies abdominal pain, nausea, diarrhea or constipation. No new areas of joint pain. Denies new areas of numbness or weakness. Denies new anxiety or depression issues. No new skin problems. Rehabilitation: PT: Restrictions/Precautions: Fall Risk, General Precautions, Up as Tolerated Other position/activity restrictions: up with assist, ureteral stent 05/29 Transfers Sit to Stand: Supervision Stand to Sit: Supervision Bed to Chair: Contact guard assistance Stand Pivot Transfers: Supervision (no AD or UE support) Comment: RW used for transfers. Generally, good hand placement, with some cues at times to correct Ambulation Surface: Level tile Device: No Device Other Apparatus: Wheelchair follow Assistance: Stand by assistance Quality of Gait: narrow step width, bilateral hip external rotation,mild tremors Gait Deviations: Slow Reyna, Decreased step length, Decreased step height, Decreased arm swing Distance: 200 ft Comments: pt reports mild SOB at completion , SpO2 95 % More Ambulation?: Yes OT: ADL Feeding: Setup Feeding Skilled Clinical Factors: reports slight trouble due to tremors Grooming: Minimal assistance Grooming Skilled Clinical Factors: Minimal assist for standing balance at sink. Supervision while seated in w/c at sink UE Bathing: Stand by assistance UE Bathing Skilled Clinical Factors: seated on tub transfer bench in shower LE Bathing: Contact guard assistance LE Bathing Skilled Clinical Factors: Minimal assist standing balance for buttocks while standing; SBA for all other tasks while seated UE Dressing: Stand by assistance UE Dressing Skilled Clinical Factors: overhead shirt LE Dressing: Moderate assistance LE Dressing Skilled Clinical Factors: assist to thread L LE this date into pants; SBA thread B LE underwear & R LE into pants. HEATHER hose measured and applied. Assist to don B socks Toileting: Minimal assistance Toileting Skilled Clinical Factors: Minimal assist standing balance for clothing management and personal hygiene Additional Comments: OT facilitated patient engagement in showering routine including bathing, dressing, toileting, and grooming tasks this date. Please see above for details. Patient reports high motivation with independence with self- care and occupational therapy. Throughout standing tolerance tasks, patient's B LE were intermittently shaking. Patient reports it is weakness. Balance Sitting Balance: Stand by assistance Standing Balance: Minimal assistance (Min/CGA) Standing Balance Time: 3 minutes x 1, 30-60 seconds x 4 Activity: self-care tasks Functional Mobility Functional - Mobility Device: Rolling Walker Activity: To/from bathroom Assist Level: Minimal assistance Functional Mobility Comments: with Minimal verbal cues for safety Bed mobility Rolling to Left: Supervision Rolling to Right: Minimal assistance Supine to Sit: Supervision Sit to Supine: Supervision Scooting: Supervision Bed Mobility Comments: up in recliner Transfers Sit to stand: Contact guard assistance Stand to sit: Contact guard assistance Transfer Comments: with Minimal VCs for hand placement Toilet Transfers Toilet - Technique: Ambulating Equipment Used: Extra wide bedside commode Toilet Transfer: Minimal assistance Toilet Transfers Comments: bariatric BSC placed over toilet Shower Transfers Shower - Transfer From: Walker Shower - Transfer Type: To and From Shower - Transfer To: Transfer tub bench Shower - Technique: Ambulating Shower Transfers: Minimal assistance Shower Transfers Comments: with VCs for technique ST: Objective: BP (!) 143/82 Pulse 72 Temp 97.5 F (36.4 C) Resp 16 Ht 6' 3.98 (1.93 m) Wt (!) 361 lb 1.6 oz (163.8 kg) SpO2 95% BMI 43.97 kg/m I Body mass index is 43.97 kg/m . I Wt Readings from Last 1 Encounters: 06/04/22 (!) 361 lb 1.6 oz (163.8 kg) Temp (24hrs), Av.6 F (36.4 C), Min:97.5 F (36.4 C), Max:97.6 F (36.4 C) GEN: well developed, well nourished, no acute distress HEENT: Normocephalic atraumatic, EOMI, mucous membranes pink and moist CV: RRR, no murmurs, rubs or gallops PULM: CTAB, no rales or rhonchi. Respirations WNL and unlabored ABD: soft, NT, ND, +BS and equal NEURO: A&O x3. Sensation intact to light touch. Intentional tremors bilateral upper extremities MSK: Range of motion 4+/5 upper and distal lower extremities EXTREMITIES: No calf tenderness to palpation bilaterally. No edema BLEs SKIN: warm dry and intact with good turgor PSYCH: appropriately interactive. Affect WNL. Medications Scheduled Meds: allopurinol 100 mg Oral Daily atorvastatin 20 mg Oral Nightly brexpiprazole 2 mg Oral Daily budesonide-formoterol 2 puff Inhalation BID heparin (porcine) 5,000 Units SubCUTAneous 3 times per day insulin lispro 0-16 Units SubCUTAneous TID WC insulin lispro 0-4 Units SubCUTAneous Nightly lamoTRIgine 200 mg Oral Daily mirtazapine 30 mg Oral Nightly pantoprazole 40 mg Oral QAM AC propranolol 20 mg Oral TID tamsulosin 0.4 mg Oral Daily venlafaxine 150 mg Oral Daily vitamin D 50,000 Units Oral Weekly polyethylene glycol 17 g Oral Daily Continuous Infusions: dextrose PRN Meds:.ondansetron OR ondansetron, albuterol sulfate HFA, ALPRAZolam, dextrose, dextrose bolus OR dextrose bolus, glucagon (rDNA), glucose, HYDROcodone 5 mg - acetaminophen, hyoscyamine, acetaminophen, senna, bisacodyl Diagnostics: CBC: No results for input(s): WBC, RBC, HGB, HCT, MCV, RDW, PLT in the last 72 hours. BMP: No results for input(s): NA, K, CL, CO2, PHOS, BUN, CREATININE, CA in the last 72 hours. BNP: No results for input(s): BNP in the last 72 hours. PT/INR: No results for input(s): PROTIME, INR in the last 72 hours. APTT: No results for input(s): APTT in the last 72 hours. CARDIAC ENZYMES: No results for input(s): CKMB, CKMBINDEX, TROPONINT in the last 72 hours. Invalid input(s): CKTOTAL;3 FASTING LIPID PANEL:No results found for: CHOL, HDL, TRIG LIVER PROFILE: No results for input(s): AST, ALT, ALB, BILIDIR, BILITOT, ALKPHOS in the last 72 hours. I/O (24Hr): Intake/Output Summary (Last 24 hours) at 06/09/2022 0949 Last data filed at 06/09/2022 0700 Gross per 24 hour Intake -- Output 1100 ml Net -1100 ml Glu last 24 hour Recent Labs 06/08/22 1123 06/08/22 1606 06/08/22 2102 06/09/22 0613 POCGLU 248* 216* 202* 187* No results for input(s): CLARITYU, COLORU, PHUR, SPECGRAV, PROTEINU, RBCUA, BLOODU, BACTERIA, NITRU, WBCUA, LEUKOCYTESUR, YEAST, GLUCOSEU, BILIRUBINUR in the last 72 hours. Impression/Plan: Impaired ADLs, gait, and mobility due to: Debility secondary to obstructing nephrolithiasis: s/p L ureteral stent 05/28/22. Carballo removed 06/02. PT/OT for gait, mobility, strengthening, endurance, ADLs, and self care. Has Lena prn pain discharge plan 06/11 Carballo removed 06/02 on Keflex until 06/09/22. Voiding well per nursing- DAISY on CKD III: Will monitor. Lisinopril and aldactone were held in the hospital. Creatinine improving 2.07 Tremors: on propranolol. Possibly medication induced vs anxiety- Rexulti dose adjusted by psychiatry in hospital. Psychiatry consulted to follow-continue current. Continues with tremor-feels may be secondary to Rexulti-neurology plans to discuss with psychiatry for possible weaning, checking lamotrigine level Anemia: Hb mildly reduced. Will monitor. HTN/HLD: on amlodipine, atorvastatin monitor blood pressure as lisinopril Aldactone were held in hospital, internal medicine follow DM: on U500 50 units BID DC'd 06/05 and sliding scale. IM following, glucose as above Asthma: Albuterol prn and Symbicort BID Gout: was on allopurinol at home -resume Major Depressive Disorder, Recurrent Moderate: on Rexulti, Remeron, Effexor, Lamictal. Psych follow-up SHADE: has home CPAP at . Panic Disorder, Generalized Anxiety Disorder: Hax Xanax prn. On propranolol TID. Psychiatry recommended outpatient CBT.-Psych signed off Hx peptic ulcer: was on omeprazole prn at home. On Levsin prn as adjunct therapy. BPH: on tamsulosin Vitamin D deficiency: on repletion Morbid obesity: BMI 43.95. Dietitian following Bowel Management: Miralax daily, senokot prn, dulcolax prn. DVT Prophylaxis: heparin, SCD's while in bed, and HEATHER's during the day Internal medicine for medical management DC 3/3 if okay with internal medicine/ndezfcwsow-czqbft-rk with 1. PCP 2. Neurology 3. Urology 4. Psychiatry, monitor glucose, out patient therapy, no driving Marcus Garcia MD This note is created with the assistance of a speech recognition program. While intending to generate a document that actually reflects the content of the visit, the document can still have some errors including those of syntax and sound a like substitutions which may escape proof reading. In such instances, actual meaning can be extrapolated by contextual diversion * Adolph Romero APRN - HOUSE MOVING SUPERVISOR - 06/08/2022 9:14 PM EST Department of Psychiatry Consult Progress Note 06/08/2022 Patient Name: Steven Walden Reason for initial consult: Depression with anxiety Interval History: Patient was met with on unit for follow-up interview. When approached patient states depression is low and is denying suicidal ideation. Patient reports continued desire to follow-up in community with mental health treatment and continue with medication compliance. Patient is denying medication side effects. Patient does not meet criteria for inpatient hospitalization at this time. Mental Status Exam Level of consciousness: Alert and awake Appearance: Appropriate attire for setting, seated in chair, with fair grooming and hygiene Behavior/Motor: Approachable, engages with interviewer, no psychomotor abnormalities Attitude toward examiner: Cooperative, attentive, good eye contact Speech: normal rate and normal volume Mood: Alright Affect: Congruent Thought processes: linear, goal directed, and coherent Thought content: Denies homicidal ideation Suicidal Ideation: Denies suicidal ideations, contracts for safety on the unit. Delusions: No evidence of delusions. Perceptual Disturbance: Patient does not appear to be responding to internal stimuli. Cognition: Oriented to self, location, time, and situation Memory: intact Insight: good Judgement: good Data height is 6' 3.98 (1.93 m) and weight is 361 lb 1.6 oz (163.8 kg) (abnormal). His oral temperatureis 97.6 F (36.4 C). His blood pressure is 138/71 and his pulse is 62. His respiration is 14 and oxygen saturation is 98%. Labs: Admission on 06/04/2022 Component Date Value Ref Range Status Glucose 06/05/2022 171 (A) 70 - 99 mg/dL Final BUN 06/05/2022 27 (A) 8 - 23 mg/dL Final Creatinine 06/05/2022 2.07 (A) 0.70 - 1.20 mg/dL Final Est, Glom Filt Rate 06/05/2022 36 (A) >60 mL/min/1.73m2 Final Comment: These results are not intended for use in patients <18 years of age. eGFR results are calculated without a race factor using the 2020 CKD-EPI equation. Careful clinical correlation is recommended, particularly when comparing to results calculated using previous equations. The CKD-EPI equation is less accurate in patients with extremes of muscle mass, extra-renal metabolism of creatine, excessive creatine ingestion, or following therapy that affects renal tubular secretion. Calcium 06/05/2022 8.9 8.6 - 10.4 mg/dL Final Sodium 06/05/2022 140 135 - 144 mmol/L Final Potassium 06/05/2022 3.7 3.7 - 5.3 mmol/L Final Chloride 06/05/2022 105 98 - 107 mmol/L Final CO2 06/05/2022 24 20 - 31 mmol/L Final Anion Gap 06/05/2022 11 9 - 17 mmol/L Final Albumin 06/05/2022 3.4 (A) 3.5 - 5.2 g/dL Final Alkaline Phosphatase 06/05/2022 92 40 - 129 U/L Final ALT 06/05/2022 33 5 - 41 U/L Final AST 06/05/2022 30 <40 U/L Final Total Bilirubin 06/05/2022 0.4 0.3 - 1.2 mg/dL Final Bilirubin, Direct 06/05/2022 0.1 <0.3 mg/dL Final Bilirubin, Indirect 06/05/2022 0.3 0.0 - 1.0 mg/dL Final Total Protein 06/05/2022 7.2 6.4 - 8.3 g/dL Final WBC 06/05/2022 10.4 3.5 - 11.0 k/uL Final RBC 06/05/2022 4.03 (A) 4.5 - 5.9 m/uL Final Hemoglobin 06/05/2022 12.5 (A) 13.5 - 17.5 g/dL Final Hematocrit 06/05/2022 38.0 (A) 41 - 53 % Final MCV 06/05/2022 94.2 80 - 100 fL Final MCH 06/05/2022 31.1 26 - 34 pg Final MCHC 06/05/2022 33.1 31 - 37 g/dL Final RDW 06/05/2022 14.3 11.5 - 14.9 % Final Platelets 06/05/2022 357 150 - 450 k/uL Final MPV 06/05/2022 7.4 6.0 - 12.0 fL Final Seg Neutrophils 06/05/2022 62 36 - 66 % Final Lymphocytes 06/05/2022 24 24 - 44 % Final Monocytes 06/05/2022 8 (A) 1 - 7 % Final Eosinophils % 06/05/2022 5 (A) 0 - 4 % Final Basophils 06/05/2022 1 0 - 2 % Final Segs Absolute 06/05/2022 6.45 1.3 - 9.1 k/uL Final Absolute Lymph # 06/05/2022 2.50 1.0 - 4.8 k/uL Final Absolute [place] # 06/05/2022 0.83 0.1 - 1.3 k/uL Final Absolute Eos # 06/05/2022 0.52 (A) 0.0 - 0.4 k/uL Final Basophils Absolute 06/05/2022 0.10 0.0 - 0.2 k/uL Final Morphology 06/05/2022 ANISOCYTOSIS PRESENT Final POC Glucose 06/04/2022 213 (A) 75 - 110 mg/dL Final POC Glucose 06/05/2022 156 (A) 75 - 110 mg/dL Final POC Glucose 06/05/2022 218 (A) 75 - 110 mg/dL Final POC Glucose 06/05/2022 178 (A) 75 - 110 mg/dL Final POC Glucose 06/05/2022 216 (A) 75 - 110 mg/dL Final POC Glucose 06/06/2022 158 (A) 75 - 110 mg/dL Final POC Glucose 06/06/2022 255 (A) 75 - 110 mg/dL Final POC Glucose 06/06/2022 133 (A) 75 - 110 mg/dL Final POC Glucose 06/06/2022 209 (A) 75 - 110 mg/dL Final POC Glucose 06/07/2022 181 (A) 75 - 110 mg/dL Final POC Glucose 06/07/2022 180 (A) 75 - 110 mg/dL Final POC Glucose 06/07/2022 221 (A) 75 - 110 mg/dL Final POC Glucose 06/07/2022 219 (A) 75 - 110 mg/dL Final POC Glucose 06/08/2022 175 (A) 75 - 110 mg/dL Final POC Glucose 06/08/2022 248 (A) 75 - 110 mg/dL Final POC Glucose 06/08/2022 216 (A) 75 - 110 mg/dL Final POC Glucose 06/08/2022 202 (A) 75 - 110 mg/dL Final Reviewed patient's current plan of care and vital signs. Labs reviewed: [x] Yes Medications Current Facility-Administered Medications: allopurinol (ZYLOPRIM) tablet 100 mg, 100 mg, Oral, Daily ondansetron (ZOFRAN-ODT) disintegrating tablet 4 mg, 4 mg, Oral, Q8H PRN OR ondansetron (ZOFRAN) injection 4 mg, 4 mg, IntraVENous, Q6H PRN albuterol sulfate HFA (PROVENTIL;VENTOLIN;PROAIR) 108 (90 Base) MCG/ACT inhaler 2 puff, 2 puff, Inhalation, Q6H PRN ALPRAZolam (XANAX) tablet 0.5 mg, 0.5 mg, Oral, Nightly PRN atorvastatin (LIPITOR) tablet 20 mg, 20 mg, Oral, Nightly brexpiprazole (REXULTI) tablet 2 mg, 2 mg, Oral, Daily budesonide-formoterol (SYMBICORT) 80-4.5 MCG/ACT inhaler 2 puff, 2 puff, Inhalation, BID cephALEXin (KEFLEX) capsule 500 mg, 500 mg, Oral, 2 times per day dextrose 10 % infusion, , IntraVENous, Continuous PRN dextrose bolus 10% 125 mL, 125 mL, IntraVENous, PRN OR dextrose bolus 10% 250 mL, 250 mL, IntraVENous, PRN glucagon (rDNA) injection 1 mg, 1 mg, IntraMUSCular, PRN glucose chewable tablet 16 g, 4 tablet, Oral, PRN heparin (porcine) injection 5,000 Units, 5,000 Units, SubCUTAneous, 3 times per day HYDROcodone-acetaminophen (NORCO) 5-325 MG per tablet 1 tablet, 1 tablet, Oral, Q6H PRN hyoscyamine (LEVSIN/SL) sublingual tablet 125 mcg, 125 mcg, SubLINGual, Q4H PRN insulin lispro (HUMALOG) injection vial 0-16 Units, 0-16 Units, SubCUTAneous, TID WC insulin lispro (HUMALOG) injection vial 0-4 Units, 0-4 Units, SubCUTAneous, Nightly lamoTRIgine (LAMICTAL) tablet 200 mg, 200 mg, Oral, Daily mirtazapine (REMERON) tablet 30 mg, 30 mg, Oral, Nightly pantoprazole (PROTONIX) tablet 40 mg, 40 mg, Oral, QAM AC propranolol (INDERAL) tablet 20 mg, 20 mg, Oral, TID tamsulosin (FLOMAX) capsule 0.4 mg, 0.4 mg, Oral, Daily venlafaxine (EFFEXOR XR) extended release capsule 150 mg, 150 mg, Oral, Daily vitamin D (ERGOCALCIFEROL) capsule 50,000 Units, 50,000 Units, Oral, Weekly acetaminophen (TYLENOL) tablet 650 mg, 650 mg, Oral, Q4H PRN polyethylene glycol (GLYCOLAX) packet 17 g, 17 g, Oral, Daily senna (SENOKOT) tablet 17.2 mg, 2 tablet, Oral, Daily PRN bisacodyl (DULCOLAX) suppository 10 mg, 10 mg, Rectal, Daily PRN ASSESSMENT DSM-5 Diagnosis: Major depressive disorder, recurrent, moderate Panic disorder BRITTANY Patient Active Problem List Diagnosis DAISY (acute kidney injury) (HCC) ARF (acute renal failure) (HCC) Chronic kidney disease Type 2 diabetes mellitus with stage 3a chronic kidney disease (HCC) Hyperlipidemia Primary hypertension Urinary tract obstruction by kidney stone Hydronephrosis of left kidney Atrophy of right kidney Left ureteral stone Debility BRITTANY (generalized anxiety disorder) Major depressive disorder, recurrent, moderate (HCC) Tremor PLAN Patient does not meet criteria for inpatient hospitalization at this time. No Medication Changes Today. We will sign off on patient, please do not hesitate to contact us with any additional concerns. Thank you very much for allowing us to participate in the care of this patient. This report has been created using voice recognition software. It may contain minor errors which are inherent in voice recognition technology. * Marcus Yepez MD - 06/08/2022 5:18 PM EST Physical Medicine & Rehabilitation Progress Note 06/08/2022 5:18 PM CC: Ambulatory and ADL dysfunction status post nephrolithiasis/stent. Subjective: Continues with tremors possibly mildly decreased otherwise no complaints. Feels well. ROS: Denies fevers, chills, sweats. No chest pain, palpitations, lightheadedness. Denies coughing, wheezing or shortness of breath. Denies abdominal pain, nausea, diarrhea or constipation. No new areas of joint pain. Denies new areas of numbness or weakness. Denies new anxiety or depression issues. No new skin problems. Rehabilitation: PT: Restrictions/Precautions: Fall Risk, General Precautions, Up as Tolerated Other position/activity restrictions: up with assist, ureteral stent 05/29 Transfers Sit to Stand: Supervision Stand to Sit: Supervision Bed to Chair: Contact guard assistance Stand Pivot Transfers: Supervision (no AD or UE support) Comment: RW used for transfers. Generally, good hand placement, with some cues at times to correct Ambulation Surface: Level tile Device: No Device Other Apparatus: Wheelchair follow Assistance: Stand by assistance Quality of Gait: narrow step width, bilateral hip external rotation,mild tremors Gait Deviations: Slow Reyna, Decreased step length, Decreased step height, Decreased arm swing Distance: 200 ft Comments: pt reports mild SOB at completion , SpO2 95 % More Ambulation?: Yes OT: ADL Feeding: Setup Feeding Skilled Clinical Factors: reports slight trouble due to tremors Grooming: Minimal assistance Grooming Skilled Clinical Factors: Minimal assist for standing balance at sink. Supervision while seated in w/c at sink UE Bathing: Stand by assistance UE Bathing Skilled Clinical Factors: seated on tub transfer bench in shower LE Bathing: Contact guard assistance LE Bathing Skilled Clinical Factors: Minimal assist standing balance for buttocks while standing; SBA for all other tasks while seated UE Dressing: Stand by assistance UE Dressing Skilled Clinical Factors: overhead shirt LE Dressing: Moderate assistance LE Dressing Skilled Clinical Factors: assist to thread L LE this date into pants; SBA thread B LE underwear & R LE into pants. HEATHER hose measured and applied. Assist to don B socks Toileting: Minimal assistance Toileting Skilled Clinical Factors: Minimal assist standing balance for clothing management and personal hygiene Additional Comments: OT facilitated patient engagement in showering routine including bathing, dressing, toileting, and grooming tasks this date. Please see above for details. Patient reports high motivation with independence with self- care and occupational therapy. Throughout standing tolerance tasks, patient's B LE were intermittently shaking. Patient reports it is weakness. Balance Sitting Balance: Stand by assistance Standing Balance: Minimal assistance (Min/CGA) Standing Balance Time: 3 minutes x 1, 30-60 seconds x 4 Activity: self-care tasks Functional Mobility Functional - Mobility Device: Rolling Walker Activity: To/from bathroom Assist Level: Minimal assistance Functional Mobility Comments: with Minimal verbal cues for safety Bed mobility Rolling to Left: Supervision Rolling to Right: Minimal assistance Supine to Sit: Supervision Sit to Supine: Supervision Scooting: Supervision Bed Mobility Comments: up in recliner Transfers Sit to stand: Contact guard assistance Stand to sit: Contact guard assistance Transfer Comments: with Minimal VCs for hand placement Toilet Transfers Toilet - Technique: Ambulating Equipment Used: Extra wide bedside commode Toilet Transfer: Minimal assistance Toilet Transfers Comments: bariatric BSC placed over toilet Shower Transfers Shower - Transfer From: Walker Shower - Transfer Type: To and From Shower - Transfer To: Transfer tub bench Shower - Technique: Ambulating Shower Transfers: Minimal assistance Shower Transfers Comments: with VCs for technique ST: Objective: BP 138/84 Pulse 75 Temp 97.9 F (36.6 C) Resp 16 Ht 6' 3.98 (1.93 m) Wt (!) 361 lb 1.6 oz(163.8 kg) SpO2 98% BMI 43.97 kg/m I Body mass index is 43.97 kg/m . I Wt Readings from Last 1 Encounters: 06/04/22 (!) 361 lb 1.6 oz (163.8 kg) Temp (24hrs), Av F (36.7 C), Min:97.9 F (36.6 C), Max:98 F (36.7 C) GEN: well developed, well nourished, no acute distress HEENT: Normocephalic atraumatic, EOMI, mucous membranes pink and moist CV: RRR, no murmurs, rubs or gallops PULM: CTAB, no rales or rhonchi. Respirations WNL and unlabored ABD: soft, NT, ND, +BS and equal NEURO: A&O x3. Sensation intact to light touch. Intentional tremors bilateral upper extremities MSK: Range of motion 4+/5 upper and distal lower extremities EXTREMITIES: No calf tenderness to palpation bilaterally. No edema BLEs SKIN: warm dry and intact with good turgor PSYCH: appropriately interactive. Affect WNL. Medications Scheduled Meds: allopurinol 100 mg Oral Daily atorvastatin 20 mg Oral Nightly brexpiprazole 2 mg Oral Daily budesonide-formoterol 2 puff Inhalation BID cephALEXin 500 mg Oral 2 times per day heparin (porcine) 5,000 Units SubCUTAneous 3 times per day insulin lispro 0-16 Units SubCUTAneous TID WC insulin lispro 0-4 Units SubCUTAneous Nightly lamoTRIgine 200 mg Oral Daily mirtazapine 30 mg Oral Nightly pantoprazole 40 mg Oral QAM AC propranolol 20 mg Oral TID tamsulosin 0.4 mg Oral Daily venlafaxine 150 mg Oral Daily vitamin D 50,000 Units Oral Weekly polyethylene glycol 17 g Oral Daily Continuous Infusions: dextrose PRN Meds:.ondansetron OR ondansetron, albuterol sulfate HFA, ALPRAZolam, dextrose, dextrose bolus OR dextrose bolus, glucagon (rDNA), glucose, HYDROcodone 5 mg - acetaminophen, hyoscyamine, acetaminophen, senna, bisacodyl Diagnostics: CBC: No results for input(s): WBC, RBC, HGB, HCT, MCV, RDW, PLT in the last 72 hours. BMP: No results for input(s): NA, K, CL, CO2, PHOS, BUN, CREATININE, CA in the last 72 hours. BNP: No results for input(s): BNP in the last 72 hours. PT/INR: No results for input(s): PROTIME, INR in the last 72 hours. APTT: No results for input(s): APTT in the last 72 hours. CARDIAC ENZYMES: No results for input(s): CKMB, CKMBINDEX, TROPONINT in the last 72 hours. Invalid input(s): CKTOTAL;3 FASTING LIPID PANEL:No results found for: CHOL, HDL, TRIG LIVER PROFILE: No results for input(s): AST, ALT, ALB, BILIDIR, BILITOT, ALKPHOS in the last 72 hours. I/O (24Hr): No intake or output data in the 24 hours ending 06/08/22 1718 Glu last 24 hour Recent Labs 06/07/22 2026 06/08/22 0513 06/08/22 1123 06/08/22 1606 POCGLU 219* 175* 248* 216* No results for input(s): CLARITYU, COLORU, PHUR, SPECGRAV, PROTEINU, RBCUA, BLOODU, BACTERIA, NITRU, WBCUA, LEUKOCYTESUR, YEAST, GLUCOSEU, BILIRUBINUR in the last 72 hours. Impression/Plan: Impaired ADLs, gait, and mobility due to: Debility secondary to obstructing nephrolithiasis: s/p L ureteral stent 05/28/22. Carballo removed 06/02. PT/OT for gait, mobility, strengthening, endurance, ADLs, and self care. Has Lena prn pain discharge plan 06/11 Carballo removed 06/02 on Keflex until 06/09/22. Voiding well per nursing- DAISY on CKD III: Will monitor. Lisinopril and aldactone were held in the hospital. Creatinine improving 2.07 Tremors: on propranolol. Possibly medication induced vs anxiety- Rexulti dose adjusted by psychiatry in hospital. Psychiatry consulted to follow-continue current. Continues with tremor-feels may be secondary to Rexulti-neurology plans to discuss with psychiatry for possible weaning Anemia: Hb mildly reduced. Will monitor. HTN/HLD: on amlodipine, atorvastatin monitor blood pressure as lisinopril Aldactone were held in hospital, internal medicine follow DM: on U500 50 units BID DC'd 06/05 and sliding scale. IM following, glucose as above Asthma: Albuterol prn and Symbicort BID Gout: was on allopurinol at home -resume Major Depressive Disorder, Recurrent Moderate: on Rexulti, Remeron, Effexor, Lamictal. Psych follow-up SHADE: has home CPAP at . Panic Disorder, Generalized Anxiety Disorder: Hax Xanax prn. On propranolol TID. Psychiatry recommended outpatient CBT. Hx peptic ulcer: was on omeprazole prn at home. On Levsin prn as adjunct therapy. BPH: on tamsulosin Vitamin D deficiency: on repletion Morbid obesity: BMI 43.95. Dietitian following Bowel Management: Miralax daily, senokot prn, dulcolax prn. DVT Prophylaxis: heparin, SCD's while in bed, and HEATHER's during the day Internal medicine for medical management DC 3 if okay with internal medicine/fghtkzyorm-wryjex-oz with 1. PCP 2. Neurology 3. Urology 4. Psychiatry, monitor glucose Marcus Garcia MD This note is created with the assistance of a speech recognition program. While intending to generate a document that actually reflects the content of the visit, the document can still have some errors including those of syntax and sound a like substitutions which may escape proof reading. In such instances, actual meaning can be extrapolated by contextual diversion * Kathy Pimentel MD - 06/08/2022 3:45 PM EST Images from the original note were not included. [facility] Neurology Specialist [facility] [facility] [address] [place] [address] PH: [phone] or [phone] FAX: [phone] Brief history: Steven Walden is a 62 y.o. old male admitted on 06/04/2022 with tremors Subjective: No new neurological events overnight. The patient continues to have positional tremors in both upper extremities. Unchanged from yesterday. Objective: BP 138/84 Pulse 75 Temp 97.9 F (36.6 C) Resp 16 Ht 6' 3.98 (1.93 m) Wt (!) 361 lb 1.6 oz (163.8 kg) SpO2 98% BMI 43.97 kg/m Medications: allopurinol 100 mg Oral Daily atorvastatin 20 mg Oral Nightly brexpiprazole 2 mg Oral Daily budesonide-formoterol 2 puff Inhalation BID cephALEXin 500 mg Oral 2 times per day heparin (porcine) 5,000 Units SubCUTAneous 3 times per day insulin lispro 0-16 Units SubCUTAneous TID WC insulin lispro 0-4 Units SubCUTAneous Nightly lamoTRIgine 200 mg Oral Daily mirtazapine 30 mg Oral Nightly pantoprazole 40 mg Oral QAM AC propranolol 20 mg Oral TID tamsulosin 0.4 mg Oral Daily venlafaxine 150 mg Oral Daily vitamin D 50,000 Units Oral Weekly polyethylene glycol 17 g Oral Daily Neurological examination: Mental status Alert and oriented; intact memory with no confusion, speech or language problems; no hallucinationsor delusions Cranial nerves II - visual skaggs intact to confrontation III, IV, - extra-ocular muscles full: no pupillary defect; no [place], no nystagmus, no ptosis V - normal facial sensation VII - normal facial symmetry VIII - intact hearing IX, X - symmetrical palate XI - symmetrical shoulder shrug XII - midline tongue without atrophy or fasciculation Motor function Normal muscle bulk and tone; normal power 5/5, including fine motor movements Sensory function Intact to touch, pin, vibration, proprioception Cerebellar Mild positional tremors in both upper extremities, unchanged from yesterday. Reflex function Intact 2+ DTR and symmetric. Negative Babinski Gait Not tested No results found for: LDLCALC, LDLCHOLESTEROL, LDLDIRECT No components found for: CHLPL No results found for: TRIG No results found for: HDL No results found for: LDLCALC No results found for: LABVLDL Lab Results Component Value Date LABA1C 7.2 (H) 05/30/2022 Lab Results Component Value Date EAG 160 05/30/2022 No results found for: [id number] Neurological work up: Study Finding CT head CTA Head and neck MRI brain 2 D Echo KOFFI EEG Assessment and Recommendations: Mild positional tremor in both upper extremities with some cogwheel rigidity Patient with CKD stage III, hypertension, hyperlipidemia, history of anxiety and depression Tremors are marginally improved. Will discuss with psych if Rexulti can be weaned off or dose adjusted. Will follow. Kathy Pimentel MD Neurology This note is created with the assistance of a speech-recognition program. While intending to generate a document that actually reflects the content of the visit, the document can still have some errors including those of syntax and sound a- like substitutions which may escape proofreading. In such instances, actual meaning can be extrapolated by contextual derivation. * Joelle Burks PTA - 06/08/2022 3:36 PM EST Physical Therapy Facility/Department: [facility] Rehabilitation Physical Therapy Progress Note NAME: Steven Walden : 1960 (62 y.o.) CODE STATUS: Full Code Date of Service: 06/08/22 Additional Pertinent Hx: Steven Walden is a 62 y.o. male with history of HTN, HLD, diabetes, CKD, peptic ulcer, gout, and depression admitted to [facility] on 05/28/2022. He initially presented to [facility] with flank pain and fever for 2 days. He was found to have obstructing kidney stone andAKI. He underwent urethral dilation, cystoscopy, left ureteral stent insertion, and difficult foleycatheter insertion on 05/28/22 (Dr. Myles). He reports tremors in all limbs, which are improvingoverall. He also notes mild shortness of breath and chronic numbness/tingling in the bilateral feet. He denies any pain and any other acute concerns. Admitted to rehab unit on 06/04/22. Family / Caregiver Present: No Referring Practitioner: Dr Mckeon Referral Date : 06/04/22 Diagnosis: Debility Restrictions: Restrictions/Precautions: Fall Risk;General Precautions;Up as Tolerated Position Activity Restriction Other position/activity restrictions: up with assist, ureteral stent 05/29 SUBJECTIVE Subjective: pt reports MATHEW 8 inch height Pain: Patient denies pain. OBJECTIVE Vision Vision: Impaired Vision Exceptions: Wears glasses at all times Hearing Hearing: Within functional limits Cognition Overall Cognitive Status: WFL Sensation Overall Sensation Status: Impaired (pt reported neuropathy in bilateral feet, primarily the soles of his feet) Functional Mobility Bed mobility Bed Mobility Comments: up in recliner Transfers Sit to Stand: Supervision Stand to Sit: Supervision Stand Pivot Transfers: Supervision (no AD or UE support) Balance Posture: Fair Sitting - Static: Good Sitting - Dynamic: Good;- Standing - Static: Good Standing - Dynamic: Fair Environmental Mobility Ambulation Surface: Level tile Device: No Device Assistance: Stand by assistance Quality of Gait: narrow step width, bilateral hip external rotation,mild tremors Gait Deviations: Slow Reyna;Decreased step length;Decreased step height;Decreased arm swing Distance: 200 ft Comments: pt reports mild SOB at completion , SpO2 95 % More Ambulation?: Yes Ambulation 2 Surface - 2: level tile Assistance 2: Stand by assistance Quality of Gait 2: narrow step width , bilateral hip external rotation, mild tremors Gait Deviations: Decreased step height;Slow Reyna;Decreased arm swing Distance: 155 ft x 2 Comments: VCs increased arm swing Stairs/Curb Stairs?: Yes Stairs # Steps : 8 (5 AM) Stairs Height: 8 (box step) Rails: Right ascending (and left ascending) Assistance: Contact guard assistance;Stand by assistance Comment: ascending /descending right LE ,2 VCs increased heel clearance , no LOB PT Exercises Exercise Treatment: seated bilateral 2.5 and blue x 15 PROM Exercises: PROM bilateral hamstring and gastrocnemius seated Resistive Exercises: ankle 4 way lt green x 10 Dynamic Standing Balance Exercises: bilateral LE lunges fwd , lateral. and retro 1 UE support Postural Correction Exercises: standing no UE support standard ELSA , shoulder flexion bilateral , D2 shoulder flexion, progression LE in lunge position bilateral with shoulder flexion and D2 flexion (no LOB 40 - 50 second bouts) Vestibular Exercises: standing on foam static no UE support with multi directional pertubations , progressing in amplitude and frequecy (SBA , VCs for equal weight distribution thru feet withdecreased posterior) ASSESSMENT Vitals O2 Device: None (Room air) Activity Tolerance Activity Tolerance: Patient tolerated treatment well Assessment Treatment Diagnosis: Impaired function. Therapy Prognosis: Good Decision Making: Medium Complexity History: B UE/LE tremors, Hx of depression Discharge Recommendations: Home with assist PRN;Patient would benefit from continued therapy after discharge;Therapy recommended at discharge PT D/C Equipment Other: none PT Equipment Recommendations Other: none GOALS Patient Goals Patient Goals : get better, go home Short Term Goals Time Frame for Short Term Goals: 5 days Short Term Goal 1: Independent bed mobility Short Term Goal 2: SBA transfers Short Term Goal 3: SBA gait with appropriate device 150' to 200'. Short Term Goal 4: stair ambulation x 10 steps with 1 HR and CGA+1 Short Term Goal 5: ambulation with assistive device on ramp 50 ft x 2, CGA [employer] Goals Time Frame for Halfway Goals : By DC [employer] Goal 1: Mod-I transfers [employer] Goal 2: Mod-I gait withleast restricitive device distance of 150 ft on level as well as incline surfaces. [employer] Goal 3: Pt able to go up and down 8 to 12 steps with 1 UE support at supervision level. Halfway Goal 4: Improve 2MWT distance to atleast 150 ft to improve activity tolerance and gait speed. [employer] Goal 5: 5 X sit<>stand without UE support in < 20 seconds to improve fluidity for transfers/mobility PLAN OF CARE Frequency: 1-2 treatment sessions per day, 5-7 days per week Physcial Therapy Plan General Plan: 60-120 minutes of therapy at least 5 out of 7 days a week (5 to 7 days/week) Current Treatment Recommendations: Strengthening;ROM;Balance training;Functional mobility training;Transfer training;Endurance training;Gait training;Stair training;Neuromuscular re-education;Home exercise program;Safety education & training;Patient/Caregiver education & training;Equipment evaluation, education, & procurement;Positioning;Therapeutic activities Safety Devices Type of Devices: Call light within reach;Gait belt;Patient at risk for falls;Left in chair EDUCATION Education Education Given To: Patient Education Provided: Mobility Training;Transfer Training;Fall Prevention Strategies;Energy Conservation Education Method: Verbal;Demonstration Barriers to Learning: None Education Outcome: Verbalized understanding;Demonstrated understanding;Continued education needed 06/08/22 1218 06/08/22 1536 PT Individual Minutes Time In 1003 1259 Time Out 1100 1334 Minutes 57 35 Joelle Burks PTA, 06/08/22 at 3:37 PM * Joelle Burks PTA - 06/07/2022 3:31 PM EST Physical Therapy Facility/Department: [facility] Rehabilitation Physical Therapy Progress Note NAME: Steven Walden : 1960 (62 y.o.) CODE STATUS: Full Code Date of Service: 06/07/22 Additional Pertinent Hx: Steven Walden is a 62 y.o. male with history of HTN, HLD, diabetes, CKD, peptic ulcer, gout, and depression admitted to [facility] on 05/28/2022. He initially presented to [facility] with flank pain and fever for 2 days. He was found to have obstructing kidney stone andAKI. He underwent urethral dilation, cystoscopy, left ureteral stent insertion, and difficult foleycatheter insertion on 05/28/22 (Dr. Myles). He reports tremors in all limbs, which are improvingoverall. He also notes mild shortness of breath and chronic numbness/tingling in the bilateral feet. He denies any pain and any other acute concerns. Admitted to rehab unit on 06/04/22. Family / Caregiver Present: No Referring Practitioner: Dr Mckeon Referral Date : 06/04/22 Diagnosis: Debility General Comment Comments: pt up in recliner dressed AM Restrictions: Restrictions/Precautions: Fall Risk;General Precautions;Up as Tolerated Position Activity Restriction Other position/activity restrictions: up with assist, ureteral stent 05/29 SUBJECTIVE Subjective: pt reports MATHEW 8 inch height Pain: Patient denies pain. OBJECTIVE Vision Vision: Impaired Vision Exceptions: Wears glasses at all times Hearing Hearing: Within functional limits Cognition Overall Cognitive Status: WFL Sensation Overall Sensation Status: Impaired (pt reported neuropathy in bilateral feet, primarily the soles of his feet) Functional Mobility Bed mobility Rolling to Left: Supervision Supine to Sit: Supervision Sit to Supine: Supervision Scooting: Supervision Bed Mobility Comments: mat table left side as home enviroment Transfers Sit to Stand: Stand by assistance Stand to Sit: Stand by assistance Stand Pivot Transfers: Stand by assistance (no AD or UE support) Balance Posture: Fair Sitting - Static: Good Sitting - Dynamic: Good;- Standing - Static: Good Standing - Dynamic: Fair Environmental Mobility Ambulation Surface: Level tile Device: Rolling Walker Assistance: Contact guard assistance;Stand by assistance (Progressed to SBA) Quality of Gait: narrow step width, bilateral hip external rotation, occasional swing stance collision and decreased right foot clearance, mild tremors Gait Deviations: Slow Reyna;Decreased step length;Decreased step height Distance: 200 ft Comments: corrects right LE gait deviations with VCs , pt reports mild SOB at completion , SpO2 95 % More Ambulation?: Yes Ambulation 2 Surface - 2: level tile Device 2: Monge rail Assistance 2: Contact guard assistance Quality of Gait 2: narrow step width , bilateral hip external rotation, mild tremors Gait Deviations: Decreased step height;Slow Reyna;Decreased step length Distance: 40 ft Comments: no right LE swing stance collision or decreased foot clearance Ambulation 3 Surface - 3: level tile Device 3: No device Assistance 3: Contact guard assistance Quality of Gait 3: decreased step widt , bilateral hip external rotation , mild tremors Gait Deviations: Slow Reyna;Decreased step length;Decreased step height Distance: 40 ft AM 190 ft PM Comments: HR present but no use AM, no HR PM, SpO2 95 % HR 83 Stairs/Curb Stairs?: Yes Stairs # Steps : 9 (5 AM) Stairs Height: 8 (stairwell PM, 4-6 inch AM) Rails: Right ascending Assistance: Contact guard assistance (step to sequence right ascending and descending, 1 VC for foot placement) Comment: 1 VC foot placement PT Exercises Dynamic Standing Balance Exercises: stand bilateral LE x 15 (1 UE support at leonardo hand rail) Postural Correction Exercises: standing no UE support D2 shoulder flexion , scapular retraction , shoulder extension , x 15 lt green band (no LOB 40 - 50 second bouts) Motor Control/Coordination: advanced gait training retro and lateral bilateral 40 ft each (CGA no LOB) Vestibular Exercises: standing on foam static no UE support 40 and 50 seconds (CGA , VCs for equal weight distribution thru feet) ASSESSMENT Vitals O2 Device: None (Room air) Activity Tolerance Activity Tolerance: Patient tolerated treatment well Assessment Treatment Diagnosis: Impaired function. Therapy Prognosis: Good Decision Making: Medium Complexity History: B UE/LE tremors, Hx of depression Discharge Recommendations: Home with assist PRN;Patient would benefit from continued therapy after discharge;Therapy recommended at discharge PT D/C Equipment Other: TBD PT Equipment Recommendations Other: TBD GOALS Patient Goals Patient Goals : get better, go home Short Term Goals Time Frame for Short Term Goals: 5 days Short Term Goal 1: Independent bed mobility Short Term Goal 2: SBA transfers Short Term Goal 3: SBA gait with appropriate device 150' to 200'. Short Term Goal 4: stair ambulation x 10 steps with 1 HR and CGA+1 Short Term Goal 5: ambulation with assistive device on ramp 50 ft x 2, CGA [employer] Goals Time Frame for Halfway Goals : By DC [employer] Goal 1: Mod-I transfers Halfway Goal 2: Mod-I gait withleast restricitive device distance of 150 ft on level as well as incline surfaces. [employer] Goal 3: Pt able to go up and down 8 to 12 steps with 1 UE support at supervision level. Halfway Goal 4: Improve 2MWT distance to atleast 150 ft to improve activity tolerance and gait speed. [employer] Goal 5: 5 X sit<>stand without UE support in < 20 seconds to improve fluidity for transfers/mobility PLAN OF CARE Frequency: 1-2 treatment sessions per day, 5-7 days per week Physcial Therapy Plan General Plan: 60-120 minutes of therapy at least 5 out of 7 days a week (5 to 7 days/week) Current Treatment Recommendations: Strengthening;ROM;Balance training;Functional mobility training;Transfer training;Endurance training;Gait training;Stair training;Neuromuscular re-education;Home exercise program;Safety education & training;Patient/Caregiver education & training;Equipment evaluation, education, & procurement;Positioning;Therapeutic activities Safety Devices Type of Devices: Call light within reach;Gait belt;Patient at risk for falls;Left in chair EDUCATION Education Education Given To: Patient Education Provided: Mobility Training;Transfer Training;Fall Prevention Strategies;Energy Conservation Education Method: Verbal;Demonstration Barriers to Learning: None Education Outcome: Verbalized understanding;Demonstrated understanding;Continued education needed 06/07/22 1219 06/07/22 1530 PT Individual Minutes Time In 1002 1407 Time Out 1102 1442 Minutes 60 35 Joelle Burks PTA, 06/07/22 at 3:31 PM * Marcus Yepez MD - 06/07/2022 12:26 PM EST Physical Medicine & Rehabilitation Progress Note 06/07/2022 12:26 PM CC: Ambulatory and ADL dysfunction status post nephrolithiasis/stent. Subjective: Continues with tremors otherwise no complaints. Feels well. ROS: Denies fevers, chills, sweats. No chest pain, palpitations, lightheadedness. Denies coughing, wheezing or shortness of breath. Denies abdominal pain, nausea, diarrhea or constipation. No new areas of joint pain. Denies new areas of numbness or weakness. Denies new anxiety or depression issues. No new skin problems. Rehabilitation: PT: Restrictions/Precautions: Fall Risk, General Precautions, Up as Tolerated Other position/activity restrictions: up with assist, ureteral stent 05/29 Transfers Sit to Stand: Contact guard assistance Stand to Sit: Contact guard assistance Bed to Chair: Contact guard assistance Stand Pivot Transfers: Contact guard assistance Comment: RW used for transfers. Generally, good hand placement, with some cues at times to correct Ambulation Surface: Level tile Device: Rolling Walker Other Apparatus: Wheelchair follow Assistance: Contact guard assistance, Stand by assistance (Progressed to SBA) Quality of Gait: slightly unsteady, narrow step width, bilateral hip external rotation, tremors seem to increase with fatigue Gait Deviations: Slow Reyna, Decreased step length, Decreased step height Distance: 195ft both AM and PM Comments: Steady gait, good use of RW, demos SOB following amb. SpO2 95% More Ambulation?: No OT: ADL Feeding: Setup Feeding Skilled Clinical Factors: reports slight trouble due to tremors Grooming: Minimal assistance Grooming Skilled Clinical Factors: Minimal assist for standing balance at sink. Supervision while seated in w/c at sink UE Bathing: Stand by assistance UE Bathing Skilled Clinical Factors: seated on tub transfer bench in shower LE Bathing: Contact guard assistance LE Bathing Skilled Clinical Factors: Minimal assist standing balance for buttocks while standing; SBA for all other tasks while seated UE Dressing: Stand by assistance UE Dressing Skilled Clinical Factors: overhead shirt LE Dressing: Moderate assistance LE Dressing Skilled Clinical Factors: assist to thread L LE this date into pants; SBA thread B LE underwear & R LE into pants. HEATHER hose measured and applied. Assist to don B socks Toileting: Minimal assistance Toileting Skilled Clinical Factors: Minimal assist standing balance for clothing management and personal hygiene Additional Comments: OT facilitated patient engagement in showering routine including bathing, dressing, toileting, and grooming tasks this date. Please see above for details. Patient reports high motivation with independence with self- care and occupational therapy. Throughout standing tolerance tasks, patient's B LE were intermittently shaking. Patient reports it is weakness. Balance Sitting Balance: Stand by assistance Standing Balance: Minimal assistance (Min/CGA) Standing Balance Time: 3 minutes x 1, 30-60 seconds x 4 Activity: self-care tasks Functional Mobility Functional - Mobility Device: Rolling Walker Activity: To/from bathroom Assist Level: Minimal assistance Functional Mobility Comments: with Minimal verbal cues for safety Bed mobility Rolling to Left: Minimal assistance Rolling to Right: Minimal assistance Supine to Sit: Minimal assistance Sit to Supine: Minimal assistance Scooting: (Bed mobility without use of bed rail.) Bed Mobility Comments: Was not able to assess. Pt up in recliner in beginning and end of AM and PM treatment Transfers Sit to stand: Contact guard assistance Stand to sit: Contact guard assistance Transfer Comments: with Minimal VCs for hand placement Toilet Transfers Toilet - Technique: Ambulating Equipment Used: Extra wide bedside commode Toilet Transfer: Minimal assistance Toilet Transfers Comments: bariatric BSC placed over toilet Shower Transfers Shower - Transfer From: Walker Shower - Transfer Type: To and From Shower - Transfer To: Transfer tub bench Shower - Technique: Ambulating Shower Transfers: Minimal assistance Shower Transfers Comments: with VCs for technique ST: Objective: BP (!) 154/81 Pulse 74 Temp 97.4 F (36.3 C) (Oral) Resp 16 Ht 6' 3.98 (1.93 m) Wt (!) 361 lb 1.6 oz (163.8 kg) SpO2 97% BMI 43.97 kg/m I Body mass index is 43.97 kg/m . I Wt Readings from Last 1 Encounters: 06/04/22 (!) 361 lb 1.6 oz (163.8 kg) Temp (24hrs), Av.8 F (36.6 C), Min:97.4 F (36.3 C), Max:98.1 F (36.7 C) GEN: well developed, well nourished, no acute distress HEENT: Normocephalic atraumatic, EOMI, mucous membranes pink and moist CV: RRR, no murmurs, rubs or gallops PULM: CTAB, no rales or rhonchi. Respirations WNL and unlabored ABD: soft, NT, ND, +BS and equal NEURO: A&O x3. Sensation intact to light touch. Intentional tremors bilateral upper extremities MSK: Range of motion 4+/5 upper and distal lower extremities EXTREMITIES: No calf tenderness to palpation bilaterally. No edema BLEs SKIN: warm dry and intact with good turgor PSYCH: appropriately interactive. Affect WNL. Medications Scheduled Meds: allopurinol 100 mg Oral Daily amLODIPine 10 mg Oral Daily atorvastatin 20 mg Oral Nightly brexpiprazole 2 mg Oral Daily budesonide-formoterol 2 puff Inhalation BID cephALEXin 500 mg Oral 2 times per day heparin (porcine) 5,000 Units SubCUTAneous 3 times per day insulin lispro 0-16 Units SubCUTAneous TID WC insulin lispro 0-4 Units SubCUTAneous Nightly lamoTRIgine 200 mg Oral Daily mirtazapine 30 mg Oral Nightly pantoprazole 40 mg Oral QAM AC propranolol 20 mg Oral TID tamsulosin 0.4 mg Oral Daily venlafaxine 150 mg Oral Daily vitamin D 50,000 Units Oral Weekly polyethylene glycol 17 g Oral Daily Continuous Infusions: dextrose PRN Meds:.ondansetron OR ondansetron, albuterol sulfate HFA, ALPRAZolam, dextrose, dextrose bolus OR dextrose bolus, glucagon (rDNA), glucose, HYDROcodone 5 mg - acetaminophen, hyoscyamine, acetaminophen, senna, bisacodyl Diagnostics: CBC: Recent Labs 06/05/22 0647 WBC 10.4 RBC 4.03* HGB 12.5* HCT 38.0* MCV 94.2 RDW 14.3 PLT 357 BMP: Recent Labs 06/05/22 0647 NA 140 K 3.7 CL 105 CO2 24 BUN 27* CREATININE 2.07* BNP: No results for input(s): BNP in the last 72 hours. PT/INR: No results for input(s): PROTIME, INR in the last 72 hours. APTT: No results for input(s): APTT in the last 72 hours. CARDIAC ENZYMES: No results for input(s): CKMB, CKMBINDEX, TROPONINT in the last 72 hours. Invalid input(s): CKTOTAL;3 FASTING LIPID PANEL:No results found for: CHOL, HDL, TRIG LIVER PROFILE: Recent Labs 06/05/22 0647 AST 30 ALT 33 BILIDIR 0.1 BILITOT 0.4 ALKPHOS 92 I/O (24Hr): No intake or output data in the 24 hours ending 06/07/22 1226 Glu last 24 hour Recent Labs 06/06/22 1656 06/06/22200206/07/22 0539 06/07/22 1201 POCGLU 133* 209* 181* 180* No results for input(s): CLARITYU, COLORU, PHUR, SPECGRAV, PROTEINU, RBCUA, BLOODU, BACTERIA, NITRU, WBCUA, LEUKOCYTESUR, YEAST, GLUCOSEU, BILIRUBINUR in the last 72 hours. Impression/Plan: Impaired ADLs, gait, and mobility due to: Debility secondary to obstructing nephrolithiasis: s/p L ureteral stent 05/28/22. Carballo removed 06/02. PT/OT for gait, mobility, strengthening, endurance, ADLs, and self care. Has Lena prn pain Carballo removed 06/02 on Keflex until 06/09/22. Voiding well per nursing- DAISY on CKD III: Will monitor. Lisinopril and aldactone were held in the hospital. Creatinine improving 2.07 Tremors: on propranolol. Possibly medication induced vs anxiety- Rexulti dose adjusted by psychiatry in hospital. Psychiatry consulted to follow-await follow- up. Continues with tremor-consult neurology Anemia: Hb mildly reduced. Will monitor. HTN/HLD: on amlodipine, atorvastatin monitor blood pressure as lisinopril Aldactone were held in hospital, internal medicine follow DM: on U500 50 units BID and sliding scale. IM following, glucose as above Asthma: Albuterol prn and Symbicort BID Gout: was on allopurinol at home - will resume here Major Depressive Disorder, Recurrent Moderate: on Rexulti, Remeron, Effexor, Lamictal. Psych follow-up pending SHADE: has home CPAP at hs. Panic Disorder, Generalized Anxiety Disorder: Hax Xanax prn. On propranolol TID. Psychiatry recommended outpatient CBT. Hx peptic ulcer: was on omeprazole prn at home. On Levsin prn as adjunct therapy. BPH: on tamsulosin Vitamin D deficiency: on repletion Morbid obesity: BMI 43.95. Dietitian following Bowel Management: Miralax daily, senokot prn, dulcolax prn. DVT Prophylaxis: heparin, SCD's while in bed, and HEATHER's during the day Internal medicine for medical management Marcus Garcia MD This note is created with the assistance of a speech recognition program. While intending to generate a document that actually reflects the content of the visit, the document can still have some errors including those of syntax and sound a like substitutions which may escape proof reading. In such instances, actual meaning can be extrapolated by contextual diversion * Gillian Jay RCP - 06/06/2022 7:47 PM EST BRONCHOSPASM/BRONCHOCONSTRICTION [x] IMPROVE AERATION/BREATH SOUNDS [x] ADMINISTER BRONCHODILATOR THERAPY APPROPRIATE [x] ASSESS BREATH SOUNDS [] IMPLEMENT AEROSOL/MDI PROTOCOL [x] PATIENT EDUCATION NEEDED * Cathy Bai PTA - 06/06/2022 3:16 PM EST Physical Therapy Facility/Department: [facility] Rehabilitation Physical Therapy Daily Treatment Note NAME: Steven Walden : 1960 (62 y.o.) CODE STATUS: Full Code Date of Service: 06/06/22 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, neuropathy and CKD stage 3 Gout Hyperlipidemia Hypertension 1999 Major depressive disorder Morbid obesity (HCC) Neuropathy SHADE (obstructive sleep apnea) 2002 Peptic ulcer disease 2018 Duodenal Ulcer Past Surgical History: Procedure Laterality Date CHOLECYSTECTOMY 2011 CYSTOSCOPY Left 05/28/2022 w/stent CYSTOSCOPY Left 05/28/2022 CYSTOSCOPY, URETERAL STENT INSERTION, URETHRAL DILATION performed by Kevin Myles MD at [facility] OR HAND SURGERY Right 12/2021 Patient assessed for rehabilitation services?: Yes Referring Practitioner: Dr Mckeon Referral Date : 06/04/22 Diagnosis: Debility Restrictions: Restrictions/Precautions: Fall Risk;General Precautions;Up as Tolerated Position Activity Restriction Other position/activity restrictions: up with assist, ureteral stent 05/29 SUBJECTIVE Subjective: Pt seated up in recliner on writers arrival, dressed and ready for treatment Pain: Patient denies pain. OBJECTIVE Vision Vision: Impaired Vision Exceptions: Wears glasses at all times Hearing Hearing: Within functional limits Cognition Overall Cognitive Status: WFL Sensation Overall Sensation Status: Impaired (pt reported neuropathy in bilateral feet, primarily the soles of his feet) Functional Mobility Bed mobility Bed Mobility Comments: Was not able to assess. Pt up in recliner in beginning and end of AM and PM treatment Transfers Sit to Stand: Contact guard assistance Stand to Sit: Contact guard assistance Stand Pivot Transfers: Contact guard assistance Comment: RW used for transfers. Generally, good hand placement, with some cues at times to correct Balance Posture: Fair Sitting - Static: Good Sitting - Dynamic: Good;- Standing - Static: Good Standing - Dynamic: Fair;- Environmental Mobility Ambulation Surface: Level tile Device: Rolling Walker Other Apparatus: Wheelchair follow Assistance: Contact guard assistance;Stand by assistance (Progressed to SBA) Quality of Gait: slightly unsteady, narrow step width, bilateral hip external rotation, tremors seem to increase with fatigue Gait Deviations: Slow Reyna;Decreased step length;Decreased step height Distance: 195ft both AM and PM Comments: Steady gait, good use of RW, demos SOB following amb. SpO2 95% PT Exercises A/AROM Exercises: standing BLE exs x 10- marching, 3way hip, HS curls, Heel raises. (CGA progressing to Rebekah d/t fatigue) Resistive Exercises: Seated BLE exs x 15-20. 2# cuffs and [place] tband Circulation/Endurance Exercises: UBE 4' FWD/RETRO Dynamic Standing Balance Exercises: Standing dynamic reaching hand taps across midline from variousheights. 2 x 10 each UE Standing Open/Closed Kinetic Chain Exercises: 4 inch step up /down retro 2 x 10 in parallel bars. 10x leading with RLE, 10x leading with LLE ASSESSMENT Vitals O2 Device: None (Room air) Activity Tolerance Activity Tolerance: Patient tolerated treatment well Assessment Treatment Diagnosis: Impaired function. Therapy Prognosis: Good Decision Making: Medium Complexity History: B UE/LE tremors, Hx of depression Discharge Recommendations: Home with assist PRN;Patient would benefit from continued therapy after discharge;Therapy recommended at discharge PT D/C Equipment Other: TBD PT Equipment Recommendations Other: TBD GOALS Patient Goals Patient Goals : get better, go home Short Term Goals Time Frame for Short Term Goals: 5 days Short Term Goal 1: Independent bed mobility Short Term Goal 2: SBA transfers Short Term Goal 3: SBA gait with appropriate device 150' to 200'. Short Term Goal 4: stair ambulation x 10 steps with 1 HR and CGA+1 Short Term Goal 5: ambulation with assistive device on ramp 50 ft x 2, CGA Halfway Goals Time Frame for Water And Gas Helper Goals : By DC Halfway Goal 1: Mod-I transfers Halfway Goal 2: Mod-I gait withleast restricitive device distance of 150 ft on level as well as incline surfaces. Halfway Goal 3: Pt able to go up and down 8 to 12 steps with 1 UE support at supervision level. Water And Gas Helper Goal 4: Improve 2MWT distance to atleast 150 ft to improve activity tolerance and gait speed. Halfway Goal 5: 5 X sit<>stand without UE support in < 20 seconds to improve fluidity for transfers/mobility PLAN OF CARE Physcial Therapy Plan General Plan: 60-120 minutes of therapy at least 5 out of 7 days a week (5 to 7 days/week) Current Treatment Recommendations: Strengthening;ROM;Balance training;Functional mobility training;Transfer training;Endurance training;Gait training;Stair training;Neuromuscular re-education;Home exercise program;Safety education & training;Patient/Caregiver education & training;Equipment evaluation, education, & procurement;Positioning;Therapeutic activities Safety Devices Type of Devices: Call light within reach;Gait belt;Patient at risk for falls;Left in chair Restraints Restraints Initially in Place: No EDUCATION Education Education Given To: Patient Education Provided: Mobility Training;Transfer Training;Fall Prevention Strategies;Energy Conservation;Role of Therapy;Plan of Care Education Method: Verbal;Demonstration Barriers to Learning: None Education Outcome: Verbalized understanding;Demonstrated understanding;Continued education needed Therapy Time 06/06/22 0800 06/06/22 1334 PT Individual Minutes Time In 0800 1334 Time Out 0859 1407 Minutes 59 33 Cathy Bai, STOCKKEEPER, 06/06/22 at 3:16 PM * Jose Raul Krause - 06/06/2022 1:42 PM EST [facility] PROGRESS NOTE Room # 2609/2609-01 Name: Steven Walden Reason for visit: nurse referred I visited the patient. Admit Date & Time: 06/04/2022 8:44 PM Assessment: Steven Walden is a 62 y.o. male in the hospital because debility. Upon entering the room pt was sitting in chair Intervention: I introduced myself and my title as bi tri operator I offered space for pt to express feelings, needs, andconcerns and provided a ministry presence. Pt shared about his recent health challenges. Pt also shared about his family. Pt has good support from family. This fiction and nonfiction prose writer engaged in conversation w/ pt actively listening to pt and providing emotional support. Pt appeared to be coping Outcome: Pt expressed gratitude for this bi tri operator visit Plan: Chaplains will remain available to offer spiritual and emotional support as needed. . Spiritual Care Department [facility] 06/06/22 1340 Encounter Summary Service Provided For: Patient Referral/Consult From: Nurse Support System Spouse;Family members Last Encounter 06/06/22 Complexity of Encounter Low Begin Time 1250 End Time 1305 Total Time Calculated 15 min Encounter Type Follow up Spiritual/Emotional needs Type Spiritual Support Assessment/Intervention/Outcome Assessment Calm;Coping Intervention Active listening;Sustaining Presence/Ministry of presence;Explored/Affirmed feelings, thoughts, concerns;Life review/Legacy Outcome Engaged in conversation;Coping;Expressed Gratitude;Optimistic;Receptive;Expressed feelings,needs, and concerns * Ashley Johns, OT - 06/06/2022 12:51 PM EST [facility] Occupational Therapy Daily Treatment Note Date: 06/06/22 Patient Name: Steven Walden Room: 2609/2609-01 Account: [id number] : 1960 (62 y.o.) Gender: male Referring Practitioner: Sachin Mckeon MD Diagnosis: Debility Treatment Diagnosis: Impaired self-care status. Past Medical History: has a past medical history of Anxiety, Chronic kidney disease, Congenital heart defect, Diabetes mellitus (HCC), Gout, Hyperlipidemia, Hypertension, Major depressive disorder, Morbid obesity ([facility]), Neuropathy, SHADE (obstructive sleep apnea), and Peptic ulcer disease. Past Surgical History: has a past surgical history that includes Cholecystectomy (2010); Hand surgery (Right, 12/2021); Cystocopy (Left, 05/28/2022); and Cystoscopy (Left, 05/28/2022). Restrictions Restrictions/Precautions Restrictions/Precautions: Fall Risk, General Precautions, Up as Tolerated Required Braces or Orthoses?: No Position Activity Restriction Other position/activity restrictions: up with assist, ureteral stent 05/29 Vitals Vital Signs O2 Device: None (Room air) Subjective Subjective Subjective: Its a dying hobby. Pt stated in regards to hobby of stamp collecting. Pt was pleasantand agreeable to occupational therapy Pain: Pt denies pain Pain Assessment Pain Assessment: None - Denies Pain Objective Cognition Overall Orientation Status: Within Functional Limits Orientation Level: Oriented X4 Cognition Overall Cognitive Status: WFL Activities of Daily Living Feeding Assistance Level: Set-up Skilled Clinical Factors: Pt reports slight difficutly with cutting due to tremors. OT educated pt on use of weighted utensils to assist with self feeding and potentially reduce termors. Pt educated on use of weighted rocker knife to assist with cutting food. Pt demonstrate Good understanding and to trial during lunch. Grooming/Oral Hygiene Assistance Level: Stand by assist Skilled Clinical Factors: Sitting in wheelchair at sink side with increased time to complete. Pt completed grooming task of shaving face and oral hygiene Upper Extremity Bathing Assistance Level: Stand by assist Skilled Clinical Factors: B arms only on this date with shirt on Pt declines all other ADLs at this time Mobility OT Exercises Motor Control/Coordination: OT facilitated pts engagement in small mosaic peg activity to increase FMC in BUE. Pt required increased time to complete task. Pt completed additional image with 1# wristweights applied with pt demonstrating increased ease and speed with completing task. Pt reports improvement with use of wrist weights. Pt completed large bead lacing activity with use of BUE to increase FMC and coordination. Pt able to complete with increased time. Good tolerance noted. Assessment Assessment Activity Tolerance: Patient tolerated treatment well;Patient limited by fatigue Discharge Recommendations: Home with assist PRN;Patient would benefit from continued therapy after discharge Patient Education Education Education Given To: Patient Education Provided: Role of Therapy;Plan of Care;Precautions;Safety;ADL Function Education Method: Verbal Barriers to Learning: None Education Outcome: Verbalized understanding;Continued education needed Safety Devices Safety Devices in place: Yes Type of devices: Call light within reach;Left in chair Goals Patient Goals Patient goals : To return to home Short Term Goals Time Frame for Short Term Goals: 5 to 7 days Short Term Goal 1: Patient will verbalize/demonstrate Good understanding of assistive equipment/durable medical equipment/modified techniques to promote increased safety and independence with self-care. Short Term Goal 2: Patient will verbalize/demonstrate Good understanding of Fall Prevention Strategies to promote increased safety and independence with self-care. Short Term Goal 3: Patient will perform lower body bathing and dressing with stand by assist. Short Term Goal 4: Patient will perform toileting tasks with stand by assist and toilet transfer with stand by assist, RW, and Good safety. Short Term Goal 5: Patient will actively participate in 30+ minutes of therapeutic exercise/functional activities to promote increased independence with self-care and mobility Halfway Goals Time Frame for Water And Gas Helper Goals : By discharge Water And Gas Helper Goal 1: Patient will perform BADLs with modified independence and Good safety. Halfway Goal 2: Patient will perform functional mobility and transfers during self-care with modified independence, least restrictive mobility device, and good safety. Water And Gas Helper Goal 3: Patient will stand for 10+ minutes with 0-1 UE support, modified independence, and no LOB while engaging functional activity of choice. Halfway Goal 4: Patient will perform simple meal prep (i.e. breakfast sandwich) with modified independence. Halfway Goal 5: Patient will perform pet care (i.e. feeding his dog Pumpkin, taking her outside on leash) with stand by assist. Halfway Goal 6: Patient will perform self-care with improved bilateral fine motor control as evidenced by bilateral 5 second improvement in 9 hole peg test. Water And Gas Helper Goal 7: Patient will perform self-care with improved R hand uniform designer strength as evidenced by10# improvement in dynamometer test score. Plan Occupational Therapy Plan Times Per Week: 5-7 Times Per Day: Twice a day Current Treatment Recommendations: Self-Care / ADL, Home management training, Strengthening, Balance training, Functional mobility training, Endurance training, Safety education & training, Patient/Caregiver education & training, Equipment evaluation, education, & procurement OT Individual Minutes OT Individual Minutes Time In: 904 Time Out: 1006 Minutes: 61 Time Code Minutes Timed Code Treatment Minutes: 61 Minutes * Sachin Mckeon MD - 06/06/2022 10:13 AM EST Physical Medicine & Rehabilitation Progress Note Subjective: 62 year-old male with Debility after nephrolithiasis/stent. Patient is well, and has had no acute complaints or problems. He notes that tremor is present with use of limbs, not at rest. No new issueswith sleep, appetite, bowel, or bladder. ROS: Denies fevers, chills, sweats. No chest pain, palpitations, lightheadedness. Denies coughing, wheezing or shortness of breath. Denies abdominal pain, nausea, diarrhea or constipation. No new areas of joint pain. Denies new areas of numbness or weakness. Denies new anxiety or depression issues. No new skin problems. Rehabilitation: Progressing in therapies. PT: Bed mobility Rolling to Left: Minimal assistance Rolling to Right: Minimal assistance Supine to Sit: Minimal assistance Sit to Supine: Minimal assistance Scooting: (Bed mobility without use of bed rail.) Bed Mobility Comments: Was not able to assess. Pt up in recliner in beginning and end of AM and PM treatment Transfers Sit to Stand: Contact guard assistance Stand to Sit: Contact guard assistance Bed to Chair: Contact guard assistance Stand Pivot Transfers: Contact guard assistance Comment: RW used for transfers. Generally, good hand placement, with some cues at times to correct Ambulation Surface: Level tile Device: Rolling Walker Other Apparatus: Wheelchair follow Assistance: Contact guard assistance, Stand by assistance (Progressed to SBA) Quality of Gait: slightly unsteady, narrow step width, bilateral hip external rotation, tremors seem to increase with fatigue Gait Deviations: Slow Reyna, Decreased step length, Decreased step height Distance: 195ft both AM and PM Comments: Steady gait, good use of RW, demos SOB following amb. SpO2 95% More Ambulation?: No OT: Grooming/Oral Hygiene Assistance Level: Stand by assist Skilled Clinical Factors: Sitting in wheelchair at sink side with increased time to complete. Pt completed grooming task of shaving face and oral hygiene Upper Extremity Bathing Assistance Level: Stand by assist Skilled Clinical Factors: B arms only on this date with shirt on SPEECH: Objective: BP (!) 141/76 Pulse 70 Temp 98.1 F (36.7 C) (Oral) Resp 16 Ht 6' 3.98 (1.93 m) Wt (!) 361 lb 1.6 oz (163.8 kg) SpO2 97% BMI 43.97 kg/m GEN: Well developed, well nourished, in NAD HEENT: NCAT. PERRL. EOMI. Mucous membranes pink and moist. PULM: Clear to ausculation. No rales or rhonchi. Respirations WNL and unlabored. CV: Regular rate rhythm. No murmurs or gallops. GI: Abdomen soft. Nontender. Non-distended. BS + and equal. NEUROLOGICAL: A&O x3. Sensation intact to light touch. intention tremor BUEs. MSK: Functional ROM all extremities. Motor testing 4+/5 [place] muscles BUEs, 4/5 [place] muscles BLEs. SKIN: Warm dry and intact. Good turgor. EXTREMITIES: No calf tenderness to palpation. No edema BLEs. PSYCH: Mood WNL. Appropriately interactive. Affect WNL. Diagnostics: CBC: Recent Labs 06/05/22 0647 WBC 10.4 RBC 4.03* HGB 12.5* HCT 38.0* MCV 94.2 RDW 14.3 PLT 357 BMP: Recent Labs 06/04/22 0516 06/05/22 0647 NA 143 140 K 4.4 3.7 CL 111* 105 CO2 20 24 BUN 27* 27* CREATININE 2.23* 2.07* GLUCOSE 56* 171* BNP: No results for input(s): BNP in the last 72 hours. PT/INR: No results for input(s): PROTIME, INR in the last 72 hours. APTT: No results for input(s): APTT in the last 72 hours. CARDIAC ENZYMES: No results for input(s): CKMB, CKMBINDEX, TROPONINT in the last 72 hours. Invalid input(s): CKTOTAL;3 troponins FASTING LIPID PANEL:No results found for: CHOL, HDL, TRIG LIVER PROFILE: Recent Labs 06/05/22 0647 AST 30 ALT 33 BILIDIR 0.1 BILITOT 0.4 ALKPHOS 92 Current Medications: Current Facility-Administered Medications: allopurinol (ZYLOPRIM) tablet 100 mg, 100 mg, Oral, Daily ondansetron (ZOFRAN-ODT) disintegrating tablet 4 mg, 4 mg, Oral, Q8H PRN OR ondansetron (ZOFRAN) injection 4 mg, 4 mg, IntraVENous, Q6H PRN albuterol sulfate HFA (PROVENTIL;VENTOLIN;PROAIR) 108 (90 Base) MCG/ACT inhaler 2 puff, 2 puff, Inhalation, Q6H PRN ALPRAZolam (XANAX) tablet 0.5 mg, 0.5 mg, Oral, Nightly PRN amLODIPine (NORVASC) tablet 10 mg, 10 mg, Oral, Daily atorvastatin (LIPITOR) tablet 20 mg, 20 mg, Oral, Nightly brexpiprazole (REXULTI) tablet 2 mg, 2 mg, Oral, Daily budesonide-formoterol (SYMBICORT) 80-4.5 MCG/ACT inhaler 2 puff, 2 puff, Inhalation, BID cephALEXin (KEFLEX) capsule 500 mg, 500 mg, Oral, 2 times per day dextrose 10 % infusion, , IntraVENous, Continuous PRN dextrose bolus 10% 125 mL, 125 mL, IntraVENous, PRN OR dextrose bolus 10% 250 mL, 250 mL, IntraVENous, PRN glucagon (rDNA) injection 1 mg, 1 mg, IntraMUSCular, PRN glucose chewable tablet 16 g, 4 tablet, Oral, PRN heparin (porcine) injection 5,000 Units, 5,000 Units, SubCUTAneous, 3 times per day HYDROcodone-acetaminophen (NORCO) 5-325 MG per tablet 1 tablet, 1 tablet, Oral, Q6H PRN hyoscyamine (LEVSIN/SL) sublingual tablet 125 mcg, 125 mcg, SubLINGual, Q4H PRN insulin lispro (HUMALOG) injection vial 0-16 Units, 0-16 Units, SubCUTAneous, TID WC insulin lispro (HUMALOG) injection vial 0-4 Units, 0-4 Units, SubCUTAneous, Nightly lamoTRIgine (LAMICTAL) tablet 200 mg, 200 mg, Oral, Daily mirtazapine (REMERON) tablet 30 mg, 30 mg, Oral, Nightly pantoprazole (PROTONIX) tablet 40 mg, 40 mg, Oral, QAM AC propranolol (INDERAL) tablet 20 mg, 20 mg, Oral, TID tamsulosin (FLOMAX) capsule 0.4 mg, 0.4 mg, Oral, Daily venlafaxine (EFFEXOR XR) extended release capsule 150 mg, 150 mg, Oral, Daily [START ON 06/07/2022] vitamin D (ERGOCALCIFEROL) capsule 50,000 Units, 50,000 Units, Oral, Weekly acetaminophen (TYLENOL) tablet 650 mg, 650 mg, Oral, Q4H PRN polyethylene glycol (GLYCOLAX) packet 17 g, 17 g, Oral, Daily senna (SENOKOT) tablet 17.2 mg, 2 tablet, Oral, Daily PRN bisacodyl (DULCOLAX) suppository 10 mg, 10 mg, Rectal, Daily PRN Impression/Plan: Impaired ADLs, gait, and mobility due to: Debility secondary to obstructing nephrolithiasis: s/p L ureteral stent 05/28/22. Carballo removed 06/02. PT/OT for gait, mobility, strengthening, endurance, ADLs, and self care. On Keflex until 06/09/22. Has Lena prn pain DAISY on CKD III: Will monitor. Lisinopril and aldactone were held in the hospital. Tremors: on propranolol. Possibly medication induced vs anxiety- Rexulti dose adjusted by psychiatry in hospital. Psychiatry consulted to follow. May consider neuro eval if no improvement. Anemia: Hb mildly reduced. Will monitor. HTN/HLD: on amlodipine, atorvastatin DM: on U500 50 units BID and sliding scale. IM following Asthma: Albuterol prn and Symbicort BID Gout: was on allopurinol at home - will resume here Major Depressive Disorder, Recurrent Moderate: on Rexulti, Remeron, Effexor, Lamictal. SHADE: has home CPAP at . Panic Disorder, Generalized Anxiety Disorder: Hax Xanax prn. On propranolol TID. Psychiatry recommended outpatient CBT. Hx peptic ulcer: was on omeprazole prn at home. On Levsin prn as adjunct therapy. BPH: on tamsulosin Vitamin D deficiency: on repletion Morbid obesity: BMI 43.95. Dietitian following Bowel Management: Miralax daily, senokot prn, dulcolax prn. DVT Prophylaxis: heparin, SCD's while in bed, and HEATHER's during the day Internal medicine for medical management This note is created with the assistance of a speech recognition program. While intending to generate a document that actually reflects the content of the visit, the document can still have some errors including those of syntax and sound a like substitutions which may escape proof reading. In such instances, actual meaning can be extrapolated by contextual diversion. * Alba Miller RN - 06/05/2022 4:[address] Gordon notified per perfectserve in regards to consult. * Joelle Burks PTA - 06/05/2022 4:20 PM EST Physical Therapy Facility/Department: [facility] Rehabilitation Physical Therapy Progress Note NAME: Steven Walden : 1960 (62 y.o.) CODE STATUS: Full Code Date of Service: 06/05/22 Additional Pertinent Hx: Steven Walden is a 62 y.o. male with history of HTN, HLD, diabetes, CKD, peptic ulcer, gout, and depression admitted to [facility] on 05/28/2022. He initially presented to [facility] with flank pain and fever for 2 days. He was found to have obstructing kidney stone andAKI. He underwent urethral dilation, cystoscopy, left ureteral stent insertion, and difficult foleycatheter insertion on 05/28/22 (Dr. Myles). He reports tremors in all limbs, which are improvingoverall. He also notes mild shortness of breath and chronic numbness/tingling in the bilateral feet. He denies any pain and any other acute concerns. Admitted to rehab unit on 06/04/22. Referring Practitioner: Dr Mckeon Referral Date : 06/04/22 Diagnosis: Debility Restrictions: Restrictions/Precautions: Fall Risk;General Precautions;Up as Tolerated Position Activity Restriction Other position/activity restrictions: up with assist, ureteral stent 05/29 SUBJECTIVE Pain: Patient denies pain. OBJECTIVE Vision Vision: Impaired Vision Exceptions: Wears glasses at all times Hearing Hearing: Within functional limits Cognition Overall Cognitive Status: WFL Sensation Overall Sensation Status: Impaired (patient reports neuropathy in bilateral feet, primarily the soles of his feet) Functional Mobility Bed mobility Bed Mobility Comments: pt up in recliner Transfers Sit to Stand: Contact guard assistance Stand to Sit: Contact guard assistance Bed to Chair: Contact guard assistance Comment: RW used for transfers, good hand placement during transfers Balance Posture: Fair Sitting - Static: Good Sitting - Dynamic: Good;- Standing - Static: Good Standing - Dynamic: Fair;- Comments: RW used to assess standing balance, pt able to sit up on edge of chair with supervision. Environmental Mobility Ambulation Surface: Level tile Device: Rolling Walker Assistance: Contact guard assistance Quality of Gait: tremors BU/BLE, slightly unsteady, narrow step width with left heel contact right , bilateral hip external rotation Gait Deviations: Slow Reyna;Decreased step length;Decreased step height Distance: 90 ft Comments: increased tremors with increased distance , no LOB , VCs increased facilitation quadriceps stance phase with education of benefits, mild SOB SpO2 95 % More Ambulation?: No Stairs/Curb Stairs?: No PT Exercises A/AROM Exercises: standing bilateral hip flexion x 10 Dynamic Standing Balance Exercises: bilateral 4 inch step up /down retro x 10 in parallel bars Activity Tolerance Activity Tolerance: Patient limited by endurance;Patient limited by fatigue Activity Tolerance Comments: BL/BUE tremors. Assessment Treatment Diagnosis: Impaired function. Therapy Prognosis: Good Decision Making: Medium Complexity History: B UE/LE tremors, Hx of depression Discharge Recommendations: Home with assist PRN;Patient would benefit from continued therapy after discharge;Therapy recommended at discharge PT D/C Equipment Other: TBD PT Equipment Recommendations Other: TBD GOALS Patient Goals Patient Goals : get better, go home Short Term Goals Time Frame for Short Term Goals: 5 days Short Term Goal 1: Independent bed mobility Short Term Goal 2: SBA transfers Short Term Goal 3: SBA gait with appropriate device 150' to 200'. Short Term Goal 4: stair ambulation x 10 steps with 1 HR and CGA+1 Short Term Goal 5: ambulation with assistive device on ramp 50 ft x 2, CGA Water And Gas Helper Goals Time Frame for Halfway Goals : By DC Water And Gas Helper Goal 1: Mod-I transfers Halfway Goal 2: Mod-I gait withleast restricitive device distance of 150 ft on level as well as incline surfaces. Water And Gas Helper Goal 3: Pt able to go up and down 8 to 12 steps with 1 UE support at supervision level. Water And Gas Helper Goal 4: Improve 2MWT distance to atleast 150 ft to improve activity tolerance and gait speed. Water And Gas Helper Goal 5: 5 X sit<>stand without UE support in < 20 seconds to improve fluidity for transfers/mobility rat exterminator goal 6: Improve Tinetti balance score to atleast 24/28 to reduce fall risk. PLAN OF CARE Frequency: 1-2 treatment sessions per day, 5-7 days per week Physcial Therapy Plan General Plan: 60-120 minutes of therapy at least 5 out of 7 days a week (5 to 7 days/week) Current Treatment Recommendations: Strengthening;ROM;Balance training;Functional mobility training;Transfer training;Endurance training;Gait training;Stair training;Neuromuscular re-education;Home exercise program;Safety education & training;Patient/Caregiver education & training;Equipment evaluation, education, & procurement;Positioning;Therapeutic activities Safety Devices Type of Devices: Call light within reach;Gait belt;Patient at risk for falls;Left in chair EDUCATION Education Education Given To: Patient Education Provided: Mobility Training;Transfer Training;Fall Prevention Strategies Education Method: Verbal Education Outcome: Verbalized understanding;Demonstrated understanding;Continued education needed 06/05/22 1619 PT Individual Minutes Time In 1451 Time Out 1524 Minutes 33 Joelle Julia Burks, STOCKKEEPER, 06/05/22 at 4:21 PM * Virginia Caceres, PT - 06/05/2022 1:22 PM EST Physical Therapy Facility/Department: [facility] Rehabilitation Physical Therapy Initial Assessment NAME: Steven Walden : 1960 (62 y.o.) CODE STATUS: Full Code Date of Service: 06/05/22 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 male with history of HTN, HLD, diabetes, CKD, peptic ulcer, gout, and depression admitted to [facility] on 05/28/2022. He initially presented to [facility] with flank pain and fever for 2 days. He was found to have obstructing kidney stone andAKI. He underwent urethral dilation, cystoscopy, left ureteral stent insertion, and difficult foleycatheter insertion on 05/28/22 (Dr. Myles). He reports tremors in all limbs, which are improvingoverall. He also notes mild shortness of breath and chronic numbness/tingling in the bilateral feet. He denies any pain and any other acute concerns. Admitted to rehab unit on 06/04/22. Referring Practitioner: Dr Mckeon Referral Date : 06/04/22 Diagnosis: Debility Restrictions: Restrictions/Precautions: Fall Risk;General Precautions;Up as Tolerated Position Activity Restriction Other position/activity restrictions: up with assist, ureteral stent 05/29 SUBJECTIVE Pain: Patient denies pain. Post Treatment Pain Screening Prior Level of Function: Social/Functional History Lives With: Spouse Type of Home: House Home Layout: One level Home Access: Stairs to enter with rails Entrance Stairs - Number of Steps: 8 Entrance Stairs - Rails: Right Bathroom Shower/Tub: Walk-in shower, Shower chair with back, Curtain Bathroom Toilet: Standard Bathroom Equipment: Shower chair Bathroom Accessibility: Walker accessible Home Equipment: Cane ADL Assistance: Independent Homemaking Assistance: Independent Homemaking Responsibilities: (pt reports his spouse is primary for IADL tasks) Ambulation Assistance: Independent Transfer Assistance: Independent Active Scada Operator: Yes Mode of Transportation: Van 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 Mostly carpetted area in the home. Additional Comments: Patient's works full-time for the [employer], however is currently on leave of absence due to rotator cuff injury. OBJECTIVE Vision Vision: Impaired Vision Exceptions: Wears glasses at all times Hearing Hearing: Within functional limits Cognition Overall Cognitive Status: WFL ROM AROM RLE (degrees) RLE AROM: WFL RLE General AROM: Swelling noted lower leg AROM LLE (degrees) LLE AROM : WFL LLE General AROM: Swelling noted lower leg Strength Strength RLE Comment: 4-/5 Strength LLE Comment: 4/5 Strength RUE Strength RUE: WFL Strength LUE Strength LUE: WFL Quality of Movement Sensation Overall Sensation Status: Impaired (patient reports neuropathy in bilateral feet, primarily the soles of his feet) Functional Mobility Bed mobility Rolling to Left: Minimal assistance Rolling to Right: Minimal assistance Supine to Sit: Minimal assistance Sit to Supine: Minimal assistance Scooting: (Bed mobility without use of bed rail.) Transfers Sit to Stand: Contact guard assistance Stand to Sit: Contact guard assistance Bed to Chair: Contact guard assistance Comment: RW used for transfers, good hand placement during transfers, performed x3 from chair. Balance Posture: Fair Sitting - Static: Good Sitting - Dynamic: Good;- Standing - Static: Good Standing - Dynamic: Fair;- Comments: RW used to assess standing balance, pt able to sit up on edge of chair with supervision. Environmental Mobility Ambulation Surface: Level tile Device: Rolling Walker Assistance: Minimal assistance;Contact guard assistance Quality of Gait: very small steps, tremors BU/BLE, slightly unsteady. Decreased step height and clearnace noted on R side. Gait Deviations: Slow Reyna;Increased ELSA;Decreased step length;Decreased step height Distance: 114 ft (2MWT), 25 ft Comments: Pt ambulated with a slow cautious gait, no true LOB but unsteady during ambulation d/t tremors. More Ambulation?: No Stairs/Curb Stairs?: No PT Exercises Exercise Treatment: Standing B LE ex's 10 reps with RW-marches and forward kicks. A/AROM Exercises: Seated B LE ex's in chair-10 reps ASSESSMENT Activity Tolerance Activity Tolerance: Patient limited by endurance;Patient limited by fatigue Activity Tolerance Comments: BL/BUE tremors. Assessment Assessment: Pt presents with generalized weakness and decreased tolerance to activity. Fatiques easily, requires rest breaks in between. Will continue POC to improve strength and endruance for safe DC home. Performance Deficits/Impairments: Decreased functional mobility ;Decreased strength;Decreased endurance;Decreased balance Treatment Diagnosis: Impaired function. Therapy Prognosis: Good Decision Making: Medium Complexity History: B UE/LE tremors, Hx of depression Discharge Recommendations: Home with assist PRN;Patient would benefit from continued therapy after discharge;Therapy recommended at discharge PT D/C Equipment Other: TBD PT Equipment Recommendations Other: TBD CLINICAL IMPRESSION Pt presents with generalized weakness and decreased tolerance to activity. Fatiques easily, requires rest breaks in between. Will continue POC to improve strength and endruance for safe DC home. GOALS Patient Goals Patient Goals : get better, go home Short Term Goals Time Frame for Short Term Goals: 5 days Short Term Goal 1: Independent bed mobility Short Term Goal 2: SBA transfers Short Term Goal 3: SBA gait with appropriate device 150' to 200'. Short Term Goal 4: stair ambulation x 10 steps with 1 HR and CGA+1 Short Term Goal 5: ambulation with assistive device on ramp 50 ft x 2, CGA Halfway Goals Time Frame for Halfway Goals : By DC Halfway Goal 1: Mod-I transfers Halfway Goal 2: Mod-I gait withleast restricitive device distance of 150 ft on level as well as incline surfaces. Water And Gas Helper Goal 3: Pt able to go up and down 8 to 12 steps with 1 UE support at supervision level. Halfway Goal 4: Improve 2MWT distance to atleast 150 ft to improve activity tolerance and gait speed. Halfway Goal 5: 5 X sit<>stand without UE support in < 20 seconds to improve fluidity for transfers/mobility retirement goal 6: Improve Tinetti balance score to atleast 24/28 to reduce fall risk. PLAN OF CARE Physcial Therapy Plan General Plan: 60-120 minutes of therapy at least 5 out of 7 days a week (5 to 7 days/week) Current Treatment Recommendations: Strengthening;ROM;Balance training;Functional mobility training;Transfer training;Endurance training;Gait training;Stair training;Neuromuscular re-education;Home exercise program;Safety education & training;Patient/Caregiver education & training;Equipment evaluation, education, & procurement;Positioning;Therapeutic activities Safety Devices Type of Devices: Call light within reach;Gait belt;Patient at risk for falls;Left in bed Restraints Restraints Initially in Place: No EDUCATION Education Education Given To: Patient Education Provided: Role of Therapy;Plan of Care;Precautions;Safety;Mobility Training;Transfer Training;Energy Conservation;Equipment;Fall Prevention Strategies Therapy Time Individual Concurrent Group Co-treatment Time In 1013 Time Out 1115 Minutes 62 Timed Code Treatment Minutes: 40 Minutes Virginia Caceres PT, 06/05/22 at 1:23 PM * BRIAN Espinoza - 06/05/2022 12:30 PM EST [facility] Acute Rehabilitation Occupational Therapy Evaluation Date: 06/05/22 Patient Name: Steven Walden Room: 2609/2609-01 Account: [id number] : 1960 (62 y.o.) Gender: male Referring Practitioner: Sachin Mckeon MD Diagnosis: Debility Treatment Diagnosis: Impaired self-care status. Additional Pertinent Hx: Steven Walden is a 62 y.o. male with history of HTN, HLD, diabetes, CKD, peptic ulcer, gout, and depression admitted to [facility] on 05/28/2022. He initially presented to [facility] with flank pain and fever for 2 days. He was found to have obstructing kidney stone andAKI. He underwent urethral dilation, cystoscopy, left ureteral stent insertion, and difficult foleycatheter insertion on 05/28/22 (Dr. Myles). He reports tremors in all limbs, which are improvingoverall. He also notes mild shortness of breath and chronic numbness/tingling in the bilateral feet. He denies any pain and any other acute concerns. Admitted to [facility] Inpatient Rehabilitation Unit on 06/04/22 to maximize safety and independence with self-care and functional mobility fordischarge home. Past Medical History: has a past medical history of Anxiety, Chronic kidney disease, Congenital heart defect, Diabetes mellitus ([facility]), Gout, Hyperlipidemia, Hypertension, Major depressive disorder, Morbid obesity ([facility]), Neuropathy, SHADE (obstructive sleep apnea), and Peptic ulcer disease. Past Surgical History: has a past surgical history that includes Cholecystectomy (2010); Hand surgery (Right, 12/2021); Cystocopy (Left, 05/28/2022); and Cystoscopy (Left, 05/28/2022). Restrictions Restrictions/Precautions: Fall Risk, General Precautions, Up as Tolerated Required Braces or Orthoses?: No Position Activity Restriction Other position/activity restrictions: up with assist, ureteral stent 05/29 Vitals Vitals intermittently monitored throughout OT evaluation with HR 77-82 and SpO2 96-97% on room air. Subjective Subjective: Yeah, I had 3 of them last week patient recounts his falls last week prior to admission. Patient reports his knees buckled and he fell. When I focus on trembling...when you realize you're doing it, it gets worse patient reports regarding his tremors. Pain: Patient denies pain. Social/Functional History Social/Functional History Lives With: Spouse Type of Home: House Home Layout: One level Home Access: Stairs to enter with rails Entrance Stairs - Number of Steps: 8 Entrance Stairs - Rails: Right Bathroom Shower/Tub: Walk-in shower, Shower chair with back, Curtain Bathroom Toilet: Standard Bathroom Equipment: Shower chair Bathroom Accessibility: Walker accessible Home Equipment: Cane ADL Assistance: Independent Homemaking Assistance: Independent Homemaking Responsibilities: (pt reports his spouse is primary for IADL tasks) Ambulation Assistance: Independent Transfer Assistance: Independent Active Scada Operator: Yes Mode of Transportation: Van 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 Mostly carpetted area in the home. Additional Comments: Patient's works full-time for the [employer], however is currently on leave of absence due to rotator cuff injury. Occupational therapy includes sexuality, sexual activity, and relationship roles into activities ofdaily living. The following questions were included in the prior level of function section of the Occupational therapy evaluation to address intimacy and relationship roles: Is it important is it for you to participate in intimacy? Yes Are you distressed or concerned about your future intimacy/ relationship roles with your partner? Yes Are you comfortable discussing your intimacy concerns with your partner? Yes Would you like to address intimacy and relationship roles in your plan of care? No Objective Vision Vision: Impaired Vision Exceptions: Wears glasses at all times Vision - Basic Assessment Prior Vision: Wears glasses all the time Hearing Hearing: Within functional limits Perception Overall Perceptual Status: WFL Sensation Overall Sensation Status: Impaired (patient reports neuropathy in bilateral feet, primarily the soles of his feet) Observation/Palpation Posture: Fair Observation: pt with intention tremors mostly in the arms > legs, has worsen since this illness. Edema: Swelling in the feet-its normal for him Cognition Overall Orientation Status: Within Functional Limits Orientation Level: Oriented X4 Cognition Overall Cognitive Status: WFL Activities of Daily Living Feeding: Setup Feeding Skilled Clinical Factors: reports slight trouble due to tremors Grooming: Minimal assistance Grooming Skilled Clinical Factors: Minimal assist for standing balance at sink. Supervision while seated in w/c at sink UE Bathing: Stand by assistance UE Bathing Skilled Clinical Factors: seated on tub transfer bench in shower LE Bathing: Contact guard assistance LE Bathing Skilled Clinical Factors: Minimal assist standing balance for buttocks while standing; SBA for all other tasks while seated UE Dressing: Stand by assistance UE Dressing Skilled Clinical Factors: overhead shirt LE Dressing: Moderate assistance LE Dressing Skilled Clinical Factors: assist to thread L LE this date into pants; SBA thread B LE underwear & R LE into pants. HEATHER lucero measured and applied. Assist to don B socks Toileting: Minimal assistance Toileting Skilled Clinical Factors: Minimal assist standing balance for clothing management and personal hygiene Additional Comments: OT facilitated patient engagement in showering routine including bathing, dressing, toileting, and grooming tasks this date. Please see above for details. Patient reports high motivation with independence with self- care and occupational therapy. Throughout standing tolerance tasks, patient's B LE were intermittently shaking. Patient reports it is weakness. OT scores Eating Assistance Needed: Setup or clean-up assistance CARE Score: 5 Discharge Goal: Independent Oral Hygiene Assistance Needed: Partial/moderate assistance CARE Score: 3 Discharge Goal: Independent Toileting Hygiene Assistance needed: Partial/moderate assistance CARE Score: 3 Discharge Goal: Independent Shower/Bathe Self Assistance Needed: Partial/moderate assistance CARE Score: 3 Discharge Goal: Independent Upper Body Dressing Assistance Needed: Supervision or touching assistance CARE Score: 4 Discharge Goal: Independent Lower Body Dressing Assistance Needed: Partial/moderate assistance CARE Score: 3 Discharge Goal: Independent Putting On/Taking Off Footwear Assistance Needed: Dependent CARE Score: 1 Discharge Goal: Independent Toilet Transfer Assistance needed: Partial/moderate assistance CARE Score: 3 Discharge Goal: Independent UE Function LUE AROM (degrees) LUE AROM : WFL Tone RUE RUE Tone: Normotonic LUE Strength Gross LUE Strength: WFL L Hand General: 4+/5 Left Hand Strength - Hose Seamer (lbs) Handle Setting 3: 75.33# (66#, 75#, 85#; norms: 65-103#) RUE AROM (degrees) RUE AROM : WFL Right Hand AROM (degrees) Right Hand AROM: WFL Tone LUE LUE Tone: Normotonic RUE Strength Gross RUE Strength: WFL R Hand General: 4/5 Right Hand Strength - Hose Seamer (lbs) Handle Setting 3: 56.33# (49#, 55#, 65#; norms: 65-103#) Fine Motor Skills/Coordination Hand Dominance Hand Dominance: Right Coordination Movements Are Fluid And Coordinated: No Coordination and Movement Description: Left UE, Right UE, Tremors (patient reports tremors began over the last year and a half, however have worsened significantly with current admission) Fine Motor Skills Left 9-Hole Peg Test: Impaired Left 9 Hole Peg Test Time (secs): 40.9 (norms: 21-29 seconds) Right 9-Hole Peg Test: Impaired Right 9 Hole Peg Test Time (secs): 46.47 (norms: 21-29 seconds) Mobility Bed mobility Bed Mobility Comments: Patient seated in recliner at start and end of session Time: 3 minutes x 1, 30-60 seconds x 4 Balance Balance Sitting Balance: Stand by assistance Standing Balance: Minimal assistance (Min/CGA) Standing Balance Time: 3 minutes x 1, 30-60 seconds x 4 Activity: self-care tasks Transfers Transfers Sit to stand: Contact guard assistance Stand to sit: Contact guard assistance Transfer Comments: with Minimal VCs for hand placement Toilet Transfers Toilet - Technique: Ambulating Equipment Used: Extra wide bedside commode Toilet Transfer: Minimal assistance Toilet Transfers Comments: bariatric BSC placed over toilet Shower Transfers Shower - Transfer From: Walker Shower - Transfer Type: To and From Shower - Transfer To: Transfer tub bench Shower - Technique: Ambulating Shower Transfers: Minimal assistance Shower Transfers Comments: with VCs for technique Functional mobility Functional Mobility Functional - Mobility Device: Rolling Walker Activity: To/from bathroom Assist Level: Minimal assistance Functional Mobility Comments: with Minimal verbal cues for safety Assessment Activity Tolerance Activity Tolerance: Patient Tolerated treatment well Assessment Performance deficits / Impairments: Decreased functional mobility , Decreased ADL status, Decreasedendurance, Decreased high-level IADLs, Decreased fine motor control, Decreased coordination, Decreased balance, Decreased strength, Decreased safe awareness Treatment Diagnosis: Impaired self-care status. Prognosis: Good Decision Making: Medium Complexity Discharge Recommendations: Home with assist PRN, Patient would benefit from continued therapy afterdischarge Patient Education Education Education Given To: Patient Education Provided: Role of Therapy, Plan of Care, Precautions, Safety, ADL Function Education Method: Verbal Barriers to Learning: None Education Outcome: Verbalized understanding, Continued education needed Safety Devices Type of Devices: Call light within reach, Gait belt, Patient at risk for falls, Left in bed Restraints Restraints Initially in Place: No Goals Patient Goals Patient goals : To return to home Short Term Goals Time Frame for Short Term Goals: 5 to 7 days Short Term Goal 1: Patient will verbalize/demonstrate Good understanding of assistive equipment/durable medical equipment/modified techniques to promote increased safety and independence with self-care. Short Term Goal 2: Patient will verbalize/demonstrate Good understanding of Fall Prevention Strategies to promote increased safety and independence with self-care. Short Term Goal 3: Patient will perform lower body bathing and dressing with stand by assist. Short Term Goal 4: Patient will perform toileting tasks with stand by assist and toilet transfer with stand by assist, RW, and Good safety. Short Term Goal 5: Patient will actively participate in 30+ minutes of therapeutic exercise/functional activities to promote increased independence with self-care and mobility Halfway Goals Time Frame for Water And Gas Helper Goals : By discharge Halfway Goal 1: Patient will perform BADLs with modified independence and Good safety. Halfway Goal 2: Patient will perform functional mobility and transfers during self-care with modified independence, least restrictive mobility device, and good safety. Water And Gas Helper Goal 3: Patient will stand for 10+ minutes with 0-1 UE support, modified independence, and no LOB while engaging functional activity of choice. Water And Gas Helper Goal 4: Patient will perform simple meal prep (i.e. breakfast sandwich) with modified independence. Water And Gas Helper Goal 5: Patient will perform pet care (i.e. feeding his dog Pumpkin, taking her outside on leash) with stand by assist. Halfway Goal 6: Patient will perform self-care with improved bilateral fine motor control as evidenced by bilateral 5 second improvement in 9 hole peg test. Halfway Goal 7: Patient will perform self-care with improved R hand uniform designer strength as evidenced by10# improvement in dynamometer test score. Plan Occupational Therapy Plan Times Per Week: 5-7 Times Per Day: Twice a day Current Treatment Recommendations: Self-Care / ADL, Home management training, Strengthening, Balance training, Functional mobility training, Endurance training, Safety education & training, Patient/Caregiver education & training, Equipment evaluation, education, & procurement 06/05/2285606/05/22 1402 Time Code Minutes Timed Code Treatment Minutes 54 Minutes 20 Minutes OT Individual Minutes Time In 0857 1402 Time Out 1007 1422 Minutes 70 20 * Tammy Obregon RN - 06/04/2022 8:44 PM EST Images from the original note were not included. ACUTE INPATIENT REHABILITATION ADMISSION [facility] Patient Name: Steven Walden Date of Admit: 06/04/2022 Time of Arrival: 20:44 Patient admitted to the Acute Inpatient Rehabilitation Unit via Wheelchair Patient oriented to room, unit and fall prevention safety measures. Education provided on the rehabilitation routine and therapy schedules. Drug / Medication Regimen Review Admitting medication orders compared with acute stay medications; home medication list reviewed with patient/family. Medication Issues Identified ? Yes If Yes, Check All That Apply [] Allergy to medication [] Drug interactions (drug/drug, drug/food, drug/disease interactions) [x] Duplicate drug [] Omission (drug missing from prescribed regimen) [] Non adherence [] Adverse reaction [] Wrong patient, drug, dose, route, time error [] Ineffective drug therapy High-Risk Drug Classes: Use and Indication Check if the patient is taking any medications by pharmacological classification If yes, check if there is an indication noted for all meds in the drug class Antipsychotic Yes If yes: indication noted? [] If no indication noted, follow up with provider for order clarification Anticoagulant Yes If yes: indication noted? [] Antibiotic Yes If yes: indication noted? [] Opioid No If yes: indication noted? [] Antiplatelet Yes If yes: indication noted? [] Hypoglycemic (Including Insulin) Yes If yes: indication noted? [] Attending Physical Medicine & Rehabilitation (PM&R) Admitting Order Review Admission orders reviewed with Acute Inpatient Rehabilitation Attending PM&R Physician: Sachin Mckeon MD Skin Assessment Skin assessment performed by two nurses: all active alterations in skin integrity, wounds, lines, drains and airways assessed, measured, recorded and reconciled. Refer to LDA avatar and LDA flowsheetfor additional information. Nurse 1 Completing Skin Assessment Ryann Magana Nurse 2 Completing Skin Assessment Fercho B Active pressure injuries or complex wounds identified? Yes If yes: contact provider for wound care consult order [] Admission Weight Patient's Weight Upon Admission 361.1 Bowel and Bladder Functional Assessment Prior history of bladder problems: retention Number of pads used per day: N/A Frequency of night time voiding: once Fluid intake volume and pattern: Regular Last Bowel Movement 06/04/2022 Prior history of bowel problems: No If Yes, Check All That Apply []Incontinence []Frequent Diarrhea []Constipation []Hemorrhoids []Diverticulitis []Bowel Surgery Pain Assessment Over the past 5 days, how much of the time has pain made it hard for you to sleep at night? Does not apply - I have not had any pain or hurting in the past 5 days Over the past 5 days, how often have you limited your participation in rehabilitation therapy sessions due to pain? Does not apply - I have not received rehabilitation therapy in the past 5 days Over the past 5 days, how often have you limited your day-to-day activities (excluding rehabilitation therapy session)? Almost constantly Special Treatments, Procedures, and Programs Check all of the following treatments, procedures, and programs that apply on admission. Cancer Treatments Chemotherapy No If Yes, Check All That Apply []IV Chemotherapy []Oral Chemotherapy []Chemotherapy Radiation No Respiratory Therapies Oxygen Therapy No If Yes, Check All That Apply []Continuous []Intermittent []High-Concentration Suctioning No If Yes, Check All That Apply []Scheduled []As Needed Tracheostomy Care No Invasive Mechanical Ventilator (Ventilator or Respirator) Yes If Yes, Check All That Apply []Non-invasive Mechanical Ventilator []BiPap [x]CPAP Other IV Medications No If Yes, Check All That Apply []IV Vasoactive Medications []IV Antibiotics []IV Anticoagulation []Other IV Medications Transfusions No Dialysis No If Yes, Check All That Apply []Hemodialysis []Peritoneal Dialysis IV Access No If Yes, Check All That Apply []Peripheral []Midline [](PICC, tunneled, port) Admission folder with the following documents provided to patient/responsible republican: 1. [facility] Individualized Disclosure Statement 2. Data Collection Information Summary for Patients in Inpatient Rehabilitation Facilities 3. Privacy Act Statement - Health Care Records Care plan was created with patient/responsible republican input and goals were agreed upon. Please refer to the admission navigator for further information. documented in this encounterBON [employer] [facility] [employer] Phone: [phone] 601-680003-03-2023 Evaluation note* Diagnosis Debility- Primary Debility, unspecified Stage 3a chronic kidney disease (HCC) Type 2 diabetes mellitus with stage 3a chronic kidney disease, unspecified whether alf insulin use (HCC) Physical deconditioning Debility, unspecified Major depressive disorder, recurrent, moderate (HCC) Major depressive disorder, recurrent episode, moderate Tremor Abnormal involuntary movements documented in this encounter [employer] Phone: 1(377) 484-178302-28-2023 Hospital Discharge instructions* Discharge Instr - SHAYNE* Thea Montes RN - 06/08/2022 4:15 PM EST Continuity of Care Form Patient Name: Steven Walden : 1960 Admit date: 06/04/2022 Discharge date: 06/11/2022 Code Status Order: Full Code Advance Directives: Admitting Physician: Sachin Mckeon MD PCP: Darion Randle MD Discharging Nurse: Thea Montes Discharging Hospital Unit/Room#: 2609/2609-01 Discharging Unit Emergency Contact: Extended Emergency Contact Information Primary Emergency Contact: Umm Walden Mobile Relation: Spouse Preferred language: Citizen Of [place] [employer]ble [employer] Operator needed? No Secondary Emergency Contact: Racheal Walden Mobile Relation: Child Preferred language: Citizen Of [place] [place] Operator needed? No Past Surgical History: Past Surgical History: Procedure Laterality Date CHOLECYSTECTOMY 2011 CYSTOSCOPY Left 05/28/2022 CYSTOSCOPY, URETERAL STENT INSERTION, URETHRAL DILATION performed by Kevin Myles MD at [facility] OR HAND SURGERY Right 12/2021 Immunization History: Immunization History Administered Date(s) Administered COVID-19, J&J, (age 18y+), IM, 0.5 mL 09/04/2020 Active Problems: Patient Active Problem List Diagnosis Code DAISY (acute kidney injury) ([facility]) N17.9 ARF (acute renal failure) ([facility]) N17.9 Chronic kidney disease N18.9 Type 2 diabetes mellitus with stage 3a chronic kidney disease ([facility]) E11.22, N18.31 Hyperlipidemia E78.5 Primary hypertension I10 Urinary tract obstruction by kidney stone N20.0, N13.8 Hydronephrosis of left kidney N13.30 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 Left ureteral stone N20.1 Debility R53.81 BRITTANY (generalized anxiety disorder) F41.1 Major depressive disorder, recurrent, moderate (HCC) F33.1 Tremor R25.1 Isolation/Infection: Isolation No Isolation Patient Infection Status Infection Onset Added Last Indicated Last Indicated By Review Planned Expiration Resolved Resolved By None active Resolved C-diff Rule Out 05/28/22 05/28/22 05/28/22 C DIFF TOXIN/ANTIGEN (Ordered) 05/29/22 Rule-Out Test Canceled Nurse Assessment: Last Vital Signs: BP 138/84 Pulse 75 Temp 97.9 F (36.6 C) Resp 16 Ht 6' 3.98 (1.93 m) Wt(!) 361 lb 1.6 oz (163.8 kg) SpO2 98% BMI 43.97 kg/m Last documented pain score (0-10 scale): Pain Level: 0 Last Weight: Wt Readings from Last 1 Encounters: 06/04/22 (!) 361 lb 1.6 oz (163.8 kg) Mental Status: oriented IV Access: - None Nursing Mobility/ADLs: Walking Independent Transfer Independent Bathing Independent Dressing Independent Toileting Independent Feeding Independent Autism Teacher Assisted Med Delivery none Wound Care Documentation and Therapy: Elimination: Continence: Bowel: Yes Bladder: Yes Urinary Catheter: None Colostomy/Ileostomy/Ileal Conduit: No Date of Last BM: 06/11/2022 No intake or output data in the 24 hours ending 06/08/22 1614 No intake/output data recorded. Safety Concerns: None Impairments/Disabilities: None Nutrition Therapy: Current Nutrition Therapy: - Oral Diet: Carb Control 4 carbs/meal (1800kcals/day) Routes of Feeding: Oral Liquids: No Restrictions Daily Fluid Restriction: no Last Modified Barium Swallow with Video (Video Swallowing Test): not done Treatments at the Time of Hospital Discharge: Respiratory Treatments: Oxygen Therapy: is not on home oxygen therapy. Ventilator: - No ventilator support Rehab Therapies: Physical Therapy and Occupational Therapy Weight Bearing Status/Restrictions: No weight bearing restrictions Other Medical Equipment (for information only, NOT a DME order): walker and chief clerk, grab bars Other Treatments: none Patient's personal belongings (please select all that are sent with patient): Glasses RN SIGNATURE: CASE MANAGEMENT/SOCIAL WORK SECTION Inpatient Status Date: Readmission Risk Assessment Score: Readmission Risk Risk of Unplanned Readmission: 15 Discharging to Facility/ Agency Dialysis Facility (if applicable) Name: Address: Dialysis Schedule: Phone: Fax: [employer] Hel[employer]/Server Systems Administrator signature: {Esignature:[id number]} PHYSICIAN SECTION Prognosis: {Prognosis:2412784436} Condition at Discharge: { Patient Condition:969635038} Rehab Potential (if transferring to Rehab): {Prognosis:8856534687} Recommended Labs or Other Treatments After Discharge: Physician Certification: I certify the above information and transfer of Steven Walden is necessary for the continuing treatment of the diagnosis listed and that he requires {Admit to Appropriate Level of Care:68812} for {GREATER/LESS:571407094} 30 days. Update Admission H&P: {CHP DME Changes in HandP:598745237} PHYSICIAN SIGNATURE: {Esignature:[id number]} documented in this encounterBON [facility] [employer] Work Phone: [phone]) [phone] History of Present illness Narrative* Belgica Liriano RN - 06/04/2022 8:11 PM EST PT discharged to [facility] via transport with all of his belongings. Discharge instructions completed and report was called to [facility] by day shift nurse. * Rakesh Knutson RN - 06/04/2022 7:18 PM EST Report called to [facility]. All questions were answered at this time. * Rosales Singh MD - 06/04/2022 3:00 PM EST Images from the original note were not included. [facility] Office: [phone] Chris Osman DO, Terrence Johns DO, Stefani Augustin DO, Jaspreet Mosley DO, Surekha Batista MD, Adrienne Means MD, Rosales Singh MD, Caitlyn Benz MD, Abdoul Camargo MD, Cathy Farooq MD, Chepe CordvoaDO, Love Hess MD, Deja Guevara DO, April Girard MD, Arvin Maya MD, Jessica Osman DO, Shima Watson MD, Raphael Connor MD, Jerome Simon DO, Yoselyn Thakkar MD, Codi Self MD, Gilda Sousa MD, Vikki Adorno MD, Jarocho Real DO, Krishan Vogt MD, Radha William MD, Shaunna Freitas, HOUSE MOVING SUPERVISOR, Prabha Hauser HOUSE MOVING SUPERVISOR, Shirlene Dacosta HOUSE MOVING SUPERVISOR, Favian Ji, HOUSE MOVING SUPERVISOR, Yesenia Espino, [facility], Ema Mason, [facility], Calista Mendez, [facility], Gunjan Ruiz, [facility], Sharon Barry, [facility], Sri Weiner, [facility], Gillian Valles PA-C, Carleen Paiz, [facility], Catie Cheema, [facility], Chelsea Kulkarni, [facility] Daily Progress Note Admit Date: 05/28/2022 Bed/Room No. Admitting Physician : Rosales Singh MD Code Status :Full Code Hospital Day: LOS: 7 days Chief Complaint: Tremors Kidney failure Kidney stones Principal Problem: DAISY (acute kidney injury) ([facility]) Active Problems: ARF (acute renal failure) (HCC) Chronic kidney disease Type 2 diabetes mellitus with stage 3a chronic kidney disease (HCC) Hyperlipidemia Primary hypertension Urinary tract obstruction by kidney stone Hydronephrosis of left kidney Atrophy of right kidney Left ureteral stone Debility BRITTANY (generalized anxiety disorder) Resolved Problems: * No resolved hospital problems. * Subjective : Interval History/Significant events : 06/04/22 Patient able to work with physical therapy. He still has tremors. Patient has Carballo catheter out and is urinating well without difficulty. He is still waiting for acute rehab placement. He continues to have persistent hypoglycemia. Patient has on lesser dose of insulin than what he takes at home. Vitals - Stable afebrile Labs - creatinine improving 7.05 -->> 3.07 >> 2.52 >> 2.22 >> 2.23. Labs pending Nursing notes , Consults notes reviewed. Overnight events and updates discussed with Nursing staff . Background History: Steven Walden is 62 y.o. male Who was admitted to the hospital on 05/28/2022 for treatment of DAISY (acute kidney injury) (HCC). Patient was transferred from [facility] to [facility] where he presented with generalizedtremors , weakness and inability to walk. He was noted to have Acute renal failure with Creatinine of 8. CT abdomen plevis showed left nephrolithiasis, atrophic right kidney, acute kidney injury. Patient has underlying history of diabetes mellitus, CKD stage III, hypertension, hyperlipidemia. Patient has cystoscopy with stent placement. Creatinine is improving. He has underlying severe depression , Unemployed for many years , SHADE on CPAP, morbid Obesity. PMH: 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, neuropathy and CKD stage 3 Gout Hyperlipidemia Hypertension 1999 Major depressive disorder Morbid obesity ([facility]) Neuropathy SHADE (obstructive sleep apnea) 2002 Peptic ulcer disease 2017 Duodenal Ulcer Allergies: No Known Allergies Medications : insulin regular human, 50 Units, SubCUTAneous, BID WC metoprolol tartrate, 25 mg, Oral, BID potassium bicarb-citric acid, 20 mEq, Oral, Once cephALEXin, 500 mg, Oral, 2 times per day brexpiprazole, 2 mg, Oral, Daily venlafaxine, 150 mg, Oral, Daily amLODIPine, 10 mg, Oral, Daily atorvastatin, 20 mg, Oral, Nightly budesonide-formoterol, 2 puff, Inhalation, BID lamoTRIgine, 200 mg, Oral, Daily [Held by provider] lisinopril, 20 mg, Oral, Daily mirtazapine, 30 mg, Oral, Nightly insulin lispro, 0-16 Units, SubCUTAneous, TID WC insulin lispro, 0-4 Units, SubCUTAneous, Nightly vitamin D, 50,000 Units, Oral, Weekly pantoprazole, 40 mg, Oral, QAM AC sodium chloride flush, 5-40 mL, IntraVENous, 2 times per day heparin (porcine), 5,000 Units, SubCUTAneous, 3 times per day dextrose, 25 g, IntraVENous, Once tamsulosin, 0.4 mg, Oral, Daily sodium chloride flush, 5-40 mL, IntraVENous, 2 times per day Review of Systems Review of Systems Constitutional: Positive for appetite change and fatigue. Negative for activity change, fever and unexpected weight change. HENT: Negative for congestion, nosebleeds, rhinorrhea, sinus pressure, sneezing and voice change. Respiratory: Negative for cough, choking, chest tightness, shortness of breath and wheezing. Cardiovascular: Negative for chest pain, palpitations and leg swelling. Gastrointestinal: Negative for abdominal pain, constipation, diarrhea, nausea and vomiting. Genitourinary: Negative for difficulty urinating, dysuria, frequency, penile discharge and testicular pain. Musculoskeletal: Negative for back pain. Skin: Negative for rash. Neurological: Positive for tremors. Negative for dizziness, weakness, light- headedness and headaches. Hematological: Does not bruise/bleed easily. Psychiatric/Behavioral: Negative for agitation, behavioral problems, confusion, self-injury, sleep disturbance and suicidal ideas. Objective : Current Vitals : Temp: 97.7 F (36.5 C), Heart Rate: 71, Resp: 20, BP: (!) 138/95, SpO2: 97 % Last 24 Hrs Vitals Patient Vitals for the past 24 hrs: BP Temp Temp src Pulse Resp SpO2 Height Weight 06/04/22 1213 (!) 138/95 97.7 F (36.5 C) Oral 71 20 97 % -- -- 06/04/22 1200 -- -- -- 61 -- -- -- -- 06/04/22 1139 -- -- -- -- -- -- 6' 3.98 (1.93 m) -- 06/04/22 0947 (!) 148/87 -- -- 63 -- -- -- -- 06/04/22 0827 137/83 97.9 F (36.6 C) Oral 59 18 98 % -- -- 06/04/22 0800 -- -- -- 68 -- -- -- -- 06/04/22 0550 -- -- -- -- -- -- -- (!) 360 lb 0.2 oz (163.3 kg) 06/04/22 0402 -- -- -- 50 16 -- -- -- 06/04/22 0400 (!) 140/92 98.3 F (36.8 C) Axillary 51 16 96 % -- -- 06/04/22 0200 -- -- -- 57 18 95 % -- -- 06/04/22 0000 -- -- -- 61 16 -- -- -- 06/03/22 2339 125/66 98.1 F (36.7 C) Oral 66 18 95 % -- -- 06/03/222030 -- -- -- 73 -- -- -- -- 06/03/222000 137/84 97.8 F (36.6 C) Oral 69 -- 95 % -- -- 06/03/22 1617 (!) 153/87 98 F (36.7 C) Oral 66 16 93 % -- -- Intake / output 06/02 1901 - 06/04 0700 In: 1530 [P.O.:1520; I.V.:10] Out: 2250 [Urine:2250] Physical Exam: Physical Exam Vitals and nursing note reviewed. Constitutional: General: He is not in acute distress. Appearance: He is morbidly obese. He is ill-appearing. He is not diaphoretic. HENT: Head: Normocephalic and atraumatic. Nose: Right Sinus: No maxillary sinus tenderness or frontal sinus tenderness. Left Sinus: No maxillary sinus tenderness or frontal sinus tenderness. Mouth/Throat: Pharynx: No oropharyngeal exudate. Eyes: General: No scleral icterus. Conjunctiva/sclera: Conjunctivae normal. Pupils: Pupils are equal, round, and reactive to light. Neck: Thyroid: No thyromegaly. Vascular: No JVD. Cardiovascular: Rate and Rhythm: Normal rate and regular rhythm. Pulses: Dorsalis pedis pulses are 2+ on the right side and 2+ on the left side. Heart sounds: Normal heart sounds. No murmur heard. Pulmonary: Effort: Pulmonary effort is normal. Breath sounds: Normal breath sounds. No wheezing or rales. Abdominal: Palpations: Abdomen is soft. There is no mass. Tenderness: There is no abdominal tenderness. Musculoskeletal: Cervical back: Full passive range of motion without pain and neck supple. Lymphadenopathy: Head: Right side of head: No submandibular adenopathy. Left side of head: No submandibular adenopathy. Cervical: No cervical adenopathy. Skin: General: Skin is warm. Neurological: Mental Status: He is alert and oriented to person, place, and time. Motor: Tremor (intentional) present. Psychiatric: Behavior: Behavior is cooperative. Laboratory findings: Recent Labs 06/02/22 0529 WBC 10.4 HGB 12.9* HCT 40.3* PLT 336 Recent Labs 06/02/22 0529 06/03/22 1344 06/04/22 0516 NA 141 139 143 K 4.0 4.5 4.4 CL 108* 105 111* CO2 20 20 20 GLUCOSE 181* 197* 56* BUN 31* 26* 27* CREATININE 2.22* 2.05* 2.23* CALCIUM 8.6 8.8 9.0 No results for input(s): PROT, LABALBU, LABA1C, U8LVCFQ, K6HWJNV, FT4, TSH, AST, ALT, LDH, GGT, ALKPHOS, BILITOT, BILIDIR, AMMONIA, AMYLASE, LIPASE, LACTATE, CHOL, HDL, LDLCHOLESTEROL, CHOLHDLRATIO, TRIG, VLDL, BNP, TROPONINI, CKTOTAL, CKMB, CKMBINDEX, RF, AMY in the last 72 hours. Specific [place], UA Date Value Ref Range Status 05/28/2022 1.011 1.005 - 1.030 Final Protein, UA Date Value Ref Range Status 05/28/2022 2+ (A) NEGATIVE Final RBC, UA Date Value Ref Range Status 05/28/2022 TOO NUMEROUS TO COUNT 0 - 4 /HPF Final Comment: Reference range defined for non-centrifuged specimen. Nitrite, Urine Date Value Ref Range Status 05/28/2022 NEGATIVE NEGATIVE Final WBC, UA Date Value Ref Range Status 05/28/2022 10 TO 20 0 - 5 /HPF Final Leukocyte Esterase, Urine Date Value Ref Range Status 05/28/2022 TRACE (A) NEGATIVE Final Imaging / Clinical Data :- XR CHEST PORTABLE Result Date: 05/29/2022 1. Mild cardiomegaly. Mild pulmonary vascular congestion. 2. Old granulomatous disease. 3. No confluent airspace consolidation. US RETROPERITONEAL COMPLETE Result Date: 05/28/2022 No stone, mass or hydronephrosis within the kidneys. Kidneys have normal size. Clinical Course : gradually improving Assessment and Plan : Left ureteral stone s/p Cystoscopy, Coude catheter insertion and left ureteral stent placement - continue Flomax,Carballo catheter removed on 06/02/22. Acute kidney injury superimposed on chronic kidney disease stage III -treated with bicarb infusion and IV fluids, IV fluids. . Monitor creatinine. Lisinopril and aldactone on hold. KVO. Type 2 diabetes mellitus - insulin dependent - on U500 ( 50 Units BID) Essential hypertension Major depression - on Remeron, effexor, Rexulti ( dose adjustment for kidney function given neurologic side effects, change dose to home dose when kidney function improves ) Dyslipidemia Type 2 diabetes mellitus. Patient on U-500. Use 100 units 3 times daily with meals. Generalized debility and tremors from renal failure. PMNR following. Tremors - likely secondary to Psych medications - reports that medication ( Rexulti) was started few months before. Appreciate psych input. Dose changed to 2 mg daily. . Recommend propanolol foressential tremors. PT OT Planing discharge to acute rehab Continue to monitor vitals , Intake / output , Cell count , HGB , Kidney function, oxygenation as indicated . Plan and updates discussed with patient , answers explained to satisfaction. Discussed with and daughter ar bed side Plan discussed with zoo caretaker (Please note that portions of this note were completed with a voice recognition program. Efforts were made to edit the dictations but occasionally words are mis-transcribed.) Rosales Singh MD 06/04/2022 * Tammy Lobato MD - 06/04/2022 1:51 PM EST Department of Psychiatry Consult Service Progress Note Reason for Consult: Medication management,Depression and anxiety SUBJECTIVE: Patient reports that his mood is largely unchanged. Continues to report feeling very anxious today. Continues to have some essential tremors. Denies any suicidal ideation plan or intent today. OBJECTIVE Medications Current Facility-Administered Medications: insulin regular human (humuLIN R U- 500 KWIKPEN) 500 UNIT/ML concentrated injection pen 50 Units, 50 Units, SubCUTAneous, BID WC metoprolol tartrate (LOPRESSOR) tablet 25 mg, 25 mg, Oral, BID potassium bicarb-citric acid (EFFER-K) effervescent tablet 20 mEq, 20 mEq, Oral, Once HYDROcodone-acetaminophen (NORCO) 5-325 MG per tablet 1 tablet, 1 tablet, Oral, Q6H PRN cephALEXin (KEFLEX) capsule 500 mg, 500 mg, Oral, 2 times per day brexpiprazole (REXULTI) tablet 2 mg, 2 mg, Oral, Daily venlafaxine (EFFEXOR XR) extended release capsule 150 mg, 150 mg, Oral, Daily albuterol sulfate HFA (PROVENTIL;VENTOLIN;PROAIR) 108 (90 Base) MCG/ACT inhaler 2 puff, 2 puff, Inhalation, Q6H PRN ALPRAZolam (XANAX) tablet 0.5 mg, 0.5 mg, Oral, Nightly PRN amLODIPine (NORVASC) tablet 10 mg, 10 mg, Oral, Daily atorvastatin (LIPITOR) tablet 20 mg, 20 mg, Oral, Nightly budesonide-formoterol (SYMBICORT) 80-4.5 MCG/ACT inhaler 2 puff, 2 puff, Inhalation, BID lamoTRIgine (LAMICTAL) tablet 200 mg, 200 mg, Oral, Daily [Held by provider] lisinopril (PRINIVIL;ZESTRIL) tablet 20 mg, 20 mg, Oral, Daily mirtazapine (REMERON) tablet 30 mg, 30 mg, Oral, Nightly glucose chewable tablet 16 g, 4 tablet, Oral, PRN dextrose bolus 10% 125 mL, 125 mL, IntraVENous, PRN OR dextrose bolus 10% 250 mL, 250 mL, IntraVENous, PRN glucagon (rDNA) injection 1 mg, 1 mg, IntraMUSCular, PRN dextrose 10 % infusion, , IntraVENous, Continuous PRN insulin lispro (HUMALOG) injection vial 0-16 Units, 0-16 Units, SubCUTAneous, TID WC insulin lispro (HUMALOG) injection vial 0-4 Units, 0-4 Units, SubCUTAneous, Nightly vitamin D (ERGOCALCIFEROL) capsule 50,000 Units, 50,000 Units, Oral, Weekly pantoprazole (PROTONIX) tablet 40 mg, 40 mg, Oral, QAM AC sodium chloride flush 0.9 % injection 5-40 mL, 5-40 mL, IntraVENous, 2 times per day sodium chloride flush 0.9 % injection 5-40 mL, 5-40 mL, IntraVENous, PRN 0.9 % sodium chloride infusion, , IntraVENous, PRN ondansetron (ZOFRAN-ODT) disintegrating tablet 4 mg, 4 mg, Oral, Q8H PRN OR ondansetron (ZOFRAN) injection 4 mg, 4 mg, IntraVENous, Q6H PRN acetaminophen (TYLENOL) tablet 650 mg, 650 mg, Oral, Q6H PRN OR acetaminophen (TYLENOL) suppository 650 mg, 650 mg, Rectal, Q6H PRN heparin (porcine) injection 5,000 Units, 5,000 Units, SubCUTAneous, 3 times per day dextrose 50 % IV solution, 25 g, IntraVENous, Once tamsulosin (FLOMAX) capsule 0.4 mg, 0.4 mg, Oral, Daily hyoscyamine (LEVSIN/SL) sublingual tablet 125 mcg, 125 mcg, SubLINGual, Q4H PRN sodium chloride flush 0.9 % injection 5-40 mL, 5-40 mL, IntraVENous, 2 times per day sodium chloride flush 0.9 % injection 5-40 mL, 5-40 mL, IntraVENous, PRN 0.9 % sodium chloride infusion, , IntraVENous, PRN Physical BP (!) 138/95 Pulse 71 Temp 97.7 F (36.5 C) (Oral) Resp 20 Ht 6' 3.98 (1.93 m) Wt (!) 360 lb 0.2 oz (163.3 kg) SpO2 97% BMI 43.85 kg/m Mental Status Examination: Level of consciousness: Within normal limits Appearance: good grooming Behavior/Motor: No abnormalities noted Attitude toward examiner: cooperative Speech: Spontaneous, normal rate and volume Mood: anxious Affect: Full range Thought processes: linear coherent Thought content: denies suicidal or homicidal ideations, denies hallucinations or delusions, does not appear to be responding to internal stimuli Memory: age appropriate Insight & Judgement: improving Medication side effects: denies ASSESSMENT MDD recurrent moderate Panic disorder BRITTANY Patient Active Problem List Diagnosis DAISY (acute kidney injury) (HCC) ARF (acute renal failure) (HCC) Chronic kidney disease Type 2 diabetes mellitus with stage 3a chronic kidney disease (HCC) Hyperlipidemia Primary hypertension Urinary tract obstruction by kidney stone Hydronephrosis of left kidney Atrophy of right kidney Left ureteral stone Debility BRITTANY (generalized anxiety disorder) PLAN Recommend switching metoprolol to propranolol to help with both essential tremors and high anxiety. We will continue to follow as needed. * Trina Rueda RD, LD - 06/04/2022 11:45 AM EST Nutrition Assessment Type and Reason for Visit: Initial, RD Nutrition Re-Screen/LOS Nutrition Recommendations/Plan: Continue current diet. Encourage/monitor PO intakes as tolerated. Will monitor plan of care. Malnutrition Assessment: Malnutrition Status: No malnutrition Nutrition Assessment: Chart reviewed/pt seen for length of stay. Admitted for obstructing kidney stone and low blood sugar. PMH: CKD, DM, HTN. S/p cystoscopy with stent placement. Pt reports having a poor appetite x past few days before admission and during admission. States his appetite has been improving. Reports eating 50-100% of meals. Last BM 06/03. Labs reviewed: Glucose 56-107 mg/dL, BUN 27 mg/dL, CR 2.23 mg/dL.Meds include: Remeron. Estimated Daily Nutrient Needs: Energy (kcal): 1376-7750 kcals/day Weight Used for Energy Requirements: Current Protein (g): 110-140 gm pro/day Weight Used for Protein Requirements: [place] Fluid (ml/day): per MD Method Used for Fluid Requirements: Other (Comment) Nutrition Related Findings: Labs/Meds reviewed. Last BM 06/03. Wound Type: None Current Nutrition Therapies: ADULT DIET; Regular; 4 carb choices (60 gm/meal); Low Potassium (Less than 3000 mg/day) Anthropometric Measures: Height: 6' 3.98 (193 cm) Current Body Wt: 360 lb 0.2 oz (163.3 kg) BMI: 43.8 Nutrition Diagnosis: Altered nutrition-related lab values related to endocrine dysfuntion as evidenced by lab values (fluctuating blood sugars) Nutrition Interventions: Food and/or Nutrient Delivery: Continue Current Diet Nutrition Education/Counseling: No recommendation at this time Coordination of Nutrition Care: Continue to monitor while inpatient Plan of Care discussed with: Patient Nutrition Monitoring and Evaluation: Behavioral-Environmental Outcomes: None Identified Food/Nutrient Intake Outcomes: Food and Nutrient Intake Physical Signs/Symptoms Outcomes: Biochemical Data, GI Status, Weight, Skin Discharge Planning: No discharge needs at this time Trina Rueda RD, JOSE Contact: [phone] * Kevin Cunningham RCP - 06/03/2022 8:32 PM EST Pt places self on BiPap/CPAP. Will monitor throughout the night. * Amanda Celestin RN - 06/03/2022 5:10 PM EST Patient's BG is currently 181. No sliding scale coverage required. U500 85 units due at this time. Dr. Singh made aware of patient's BG and patient's low blood glucose the past two night. Per Dr. Singh, administer U500 85 units now. No further orders received. * Amanda Aguilera PTA - 06/03/2022 3:09 PM EST Physical Therapy Facility/Department: [facility] Physical Therapy Daily Treatment Note Name: Steven Walden : 1960 Date of Service: 06/03/2022 Discharge Recommendations: Patient would benefit from continued therapy after discharge PT Equipment Recommendations Equipment Needed: No Patient Diagnosis(es): The primary encounter diagnosis was Acute renal failure with acute cortical necrosis (HCC). A diagnosis of Left ureteral stone was also pertinent to this visit. Past Medical History: has a past medical history of Anxiety, Chronic kidney disease, Congenital heart defect, Diabetes mellitus (HCC), Gout, Hyperlipidemia, Hypertension, Major depressive disorder, Morbid obesity (HCC), Neuropathy, SHADE (obstructive sleep apnea), and Peptic ulcer disease. Past Surgical History: has a past surgical history that includes Cholecystectomy (2010); Hand surgery (Right, 12/2021); Cystocopy (Left, 05/28/2022); and Cystoscopy (Left, 05/28/2022). Assessment Body Structures, Functions, Activity Limitations Requiring Skilled Therapeutic Intervention: Decreased functional mobility ;Decreased ROM;Decreased endurance;Decreased balance;Decreased fine motor control;Decreased coordination;Decreased posture Assessment: Pt ambulated 30ft x3 with RW and CGA/Rebekah, requiring 2 seated rest breaks throughout for endurance recovery. Pt most limited this date by decreased endurance also BU/BLE tremors. Pt currently unsafe to return to prior living arrangements, recommending continued PT to address deficits and assist in return to prior level of independence. Therapy Prognosis: Good Requires PT Follow-Up: Yes Activity Tolerance Activity Tolerance: Patient tolerated treatment well;Patient limited by endurance Activity Tolerance Comments: BL/BUE tremors. Plan Physcial Therapy Plan General Plan: (5-6x/week) Current Treatment Recommendations: Strengthening, ROM, Balance training, Functional mobility training, Transfer training, Endurance training, Gait training, Stair training, Neuromuscular re-education, Home exercise program, Safety education & training, Patient/Caregiver education & training, Equipment evaluation, education, & procurement, Positioning, Therapeutic activities Safety Devices Type of Devices: Call light within reach, Gait belt, Patient at risk for falls, Left in chair, Chair alarm in place Restraints Restraints Initially in Place: No Restrictions Restrictions/Precautions Restrictions/Precautions: Fall Risk, General Precautions, Up as Tolerated Required Braces or Orthoses?: No Position Activity Restriction Other position/activity restrictions: up with assist, ureteral stent 05/29 Subjective General Chart Reviewed: Yes Patient assessed for rehabilitation services?: Yes Response To Previous Treatment: Patient with no complaints from previous session. Family / Caregiver Present: Yes () Follows Commands: Within Functional Limits General Comment Comments: Pt returned to seated in chair at end of session with call light in reach and present. Subjective Subjective: Pt and RN agreeable to PT this morning. Pt seated in chair upon arrival with no c/o pain. Pt pleasant and cooperative throughout session. Cognition Orientation Overall Orientation Status: Within Functional Limits Orientation Level: Oriented X4 Cognition Overall Cognitive Status: WFL Objective Bed mobility Supine to Sit: Unable to assess Sit to Supine: Unable to assess Scooting: Unable to assess Bed Mobility Comments: Pt up in chair upon entry/exit this date. Transfers Sit to Stand: Contact guard assistance Stand to Sit: Contact guard assistance Comment: RW used for transfers, good hand placement during transfers, performed x3 from chair. Ambulation Surface: Level tile Device: Rolling Walker Assistance: Minimal assistance;Contact guard assistance Quality of Gait: very small steps, tremors BU/BLE, unsteady Gait Deviations: Slow Reyna;Increased ELSA;Decreased step length;Decreased step height Distance: 30ft x3 Comments: Pt ambulated with a slow cautious gait, no true LOB but unsteady during ambulation d/t tremors. More Ambulation?: No Stairs/Curb Stairs?: No Balance Posture: Fair Sitting - Static: Good Sitting - Dynamic: Good Standing - Static: Good Standing - Dynamic: Fair;- Comments: RW used to assess standing balance, pt able to sit up on edge of chair with supervision. Exercise Treatment: Seated LE exercise program: Long Arc Quads, hip abduction/adduction, heel/toe raises, and marches. Reps: x10 BLE Comments: Pt performed while seated EOB. AM-PAC Score AM-PAC Inpatient Mobility Raw Score : 18 (06/03/221455) AM-PAC Inpatient T-Scale Score : 43.63 (06/03/221455) Mobility Inpatient CMS 0-100% Score: 46.58 (06/03/221455) Mobility Inpatient CMS G-Code Modifier : CK (06/03/221455) Goals Short Term Goals Time Frame for Short Term Goals: 12 visits Short Term Goal 1: independent bed mobility Short Term Goal 2: independent transfers Short Term Goal 3: independent gait with appropriate device vs none x 100' Short Term Goal 4: stair ambulation x 10 steps with 1 HR and CG+1 Short Term Goal 5: pt independent with pursed lip breathing to keep RR <24 Patient Goals Patient Goals : get better, go home Education Patient Education Education Given To: Patient Education Provided: Role of Therapy;Plan of Care;Home Exercise Program;Precautions;Transfer Training;Fall Prevention Strategies Education Method: Verbal;Demonstration Barriers to Learning: None Education Outcome: Demonstrated understanding;Verbalized understanding Therapy Time Individual Concurrent Group Co-treatment Time In 1019 Time Out 1045 Minutes 26 Timed Code Treatment Minutes: 25 Minutes Amanda Aguilera PTA * Rosales Singh MD - 06/03/2022 7:44 AM EST Images from the original note were not included. [facility] Office: [phone] Chris Osman DO, Terrence Johns DO, Stefani Augustin, DO, Jaspreet Mosley, DO, Surekha Batista MD, Adrienne Means MD, Rosales Singh MD, Caitlyn Benz MD, Abdoul Camargo MD, Cathy Farooq MD, Chepe Cordova,DO, Love Hess MD, Deja Guevara, DO, April Girard MD, Arvin Maya MD, Jessica Osman DO, Shima Watson MD, Raphael Connor MD, Jerome Simon DO, Yoselyn Thakkar MD, Codi Self MD, Gilda Sousa MD, Vikki Adorno MD, Jarocho Real DO, Krishan Vogt MD, Radha William MD, Shaunna Freitas, HOUSE MOVING SUPERVISOR, Prabha Hauser, HOUSE MOVING SUPERVISOR, Shirlene Dacosta, HOUSE MOVING SUPERVISOR, Favian Ji, [facility], Yesenia Espino, [facility], Ema Mason, HOUSE MOVING SUPERVISOR, Calista Mendez, HOUSE MOVING SUPERVISOR, Gunjan Ruiz, HOUSE MOVING SUPERVISOR, Sharon Barry, HOUSE MOVING SUPERVISOR, Sri Weiner, HOUSE MOVING SUPERVISOR, MEGAN SosaC, Carleen Paiz, SOC[employer] FAC[employer] MEMBER, Catie Cheema, HOUSE MOVING SUPERVISOR, Chelsea Kulkarni, HOUSE MOVING SUPERVISOR [facility] Daily Progress Note Admit Date: 05/28/2022 Bed/Room No. Admitting Physician : Rosales Singh MD Code Status :Full Code Hospital Day: LOS: 6 days Chief Complaint: Tremors Kidney failure Kidney stones Principal Problem: DAISY (acute kidney injury) (HCC) Active Problems: ARF (acute renal failure) (HCC) Chronic kidney disease Type 2 diabetes mellitus with stage 3a chronic kidney disease (HCC) Hyperlipidemia Primary hypertension Urinary tract obstruction by kidney stone Hydronephrosis of left kidney Atrophy of right kidney Left ureteral stone Debility Resolved Problems: * No resolved hospital problems. * Subjective : Interval History/Significant events : 06/03/22 Patient walked with PT. Tremors are stable . Carballo catheter is out and he is urinating , had some irritation. He is breathing on room air. Vitals - Stable afebrile Labs - creatinine improving 7.05 -->> 3.07 >> 2.52 >> 2.22 Labs pending Nursing notes , Consults notes reviewed. Overnight events and updates discussed with Nursing staff . Background History: Steven Walden is 62 y.o. male Who was admitted to the hospital on 05/28/2022 for treatment of DAISY (acute kidney injury) ([facility]). Patient was transferred from [facility] to [facility] where he presented with generalizedtremors , weakness and inability to walk. He was noted to have Acute renal failure with Creatinine of 8. CT abdomen plevis showed left nephrolithiasis, atrophic right kidney, acute kidney injury. Patient has underlying history of diabetes mellitus, CKD stage III, hypertension, hyperlipidemia. Patient has cystoscopy with stent placement. Creatinine is improving. He has underlying severe depression , Unemployed for many years , SHADE on CPAP, morbid Obesity. PMH: Past Medical History: Diagnosis Date Anxiety Chronic kidney disease Congenital heart defect Diabetes mellitus ([facility]) 2007 inulin dependent, neuropathy and CKD stage 3 Gout Hyperlipidemia Hypertension 1999 Major depressive disorder Morbid obesity ([facility]) Neuropathy SHADE (obstructive sleep apnea) 2002 Peptic ulcer disease 2017 Duodenal Ulcer Allergies: No Known Allergies Medications : insulin regular human, 100 Units, SubCUTAneous, BID WC potassium bicarb-citric acid, 20 mEq, Oral, Once cephALEXin, 500 mg, Oral, 2 times per day brexpiprazole, 2 mg, Oral, Daily venlafaxine, 150 mg, Oral, Daily amLODIPine, 10 mg, Oral, Daily atorvastatin, 20 mg, Oral, Nightly budesonide-formoterol, 2 puff, Inhalation, BID lamoTRIgine, 200 mg, Oral, Daily [Held by provider] lisinopril, 20 mg, Oral, Daily metoprolol tartrate, 50 mg, Oral, BID mirtazapine, 30 mg, Oral, Nightly insulin lispro, 0-16 Units, SubCUTAneous, TID WC insulin lispro, 0-4 Units, SubCUTAneous, Nightly vitamin D, 50,000 Units, Oral, Weekly pantoprazole, 40 mg, Oral, QAM AC sodium chloride flush, 5-40 mL, IntraVENous, 2 times per day heparin (porcine), 5,000 Units, SubCUTAneous, 3 times per day dextrose, 25 g, IntraVENous, Once tamsulosin, 0.4 mg, Oral, Daily sodium chloride flush, 5-40 mL, IntraVENous, 2 times per day Review of Systems Review of Systems Constitutional: Positive for appetite change and fatigue. Negative for activity change, fever and unexpected weight change. HENT: Negative for congestion, nosebleeds, rhinorrhea, sinus pressure, sneezing and voice change. Respiratory: Negative for cough, choking, chest tightness, shortness of breath and wheezing. Cardiovascular: Negative for chest pain, palpitations and leg swelling. Gastrointestinal: Negative for abdominal pain, constipation, diarrhea, nausea and vomiting. Genitourinary: Negative for difficulty urinating, dysuria, frequency, penile discharge and testicular pain. Musculoskeletal: Negative for back pain. Skin: Negative for rash. Neurological: Positive for tremors. Negative for dizziness, weakness, light- headedness and headaches. Hematological: Does not bruise/bleed easily. Psychiatric/Behavioral: Negative for agitation, behavioral problems, confusion, self-injury, sleep disturbance and suicidal ideas. Objective : Current Vitals : Temp: 98 F (36.7 C), Heart Rate: 60, Resp: 16, BP: 132/74, SpO2: 96 % Last 24 Hrs Vitals Patient Vitals for the past 24 hrs: BP Temp Temp src Pulse Resp SpO2 Weight 06/03/22 0347 132/74 98 F (36.7 C) Axillary 60 16 96 % (!) 361 lb 15.9 oz (164.2 kg) 06/02/22 2330 (!) 138/98 98.2 F (36.8 C) Oral 66 20 96 % -- 06/02/222015 -- -- -- 78 16 95 % -- 06/02/221999 130/70 98.1 F (36.7 C) Oral 74 18 93 % -- 06/02/22 1559 133/88 98 F (36.7 C) Oral 72 23 98 % -- 06/02/22 1515 -- -- -- -- -- 100 % -- 06/02/22 1227 (!) 148/90 97.6 F (36.4 C) Oral 71 18 94 % -- 06/02/22 0818 (!) 142/79 98.1 F (36.7 C) Oral 74 17 93 % -- Intake / output 06/01 1901 - 06/03 0700 In: 2009 [P.O.:2000; I.V.:10] Out: 2500 [Urine:2500] Physical Exam: Physical Exam Vitals and nursing note reviewed. Constitutional: General: He is not in acute distress. Appearance: He is morbidly obese. He is ill-appearing. He is not diaphoretic. HENT: Head: Normocephalic and atraumatic. Nose: Right Sinus: No maxillary sinus tenderness or frontal sinus tenderness. Left Sinus: No maxillary sinus tenderness or frontal sinus tenderness. Mouth/Throat: Pharynx: No oropharyngeal exudate. Eyes: General: No scleral icterus. Conjunctiva/sclera: Conjunctivae normal. Pupils: Pupils are equal, round, and reactive to light. Neck: Thyroid: No thyromegaly. Vascular: No JVD. Cardiovascular: Rate and Rhythm: Normal rate and regular rhythm. Pulses: Dorsalis pedis pulses are 2+ on the right side and 2+ on the left side. Heart sounds: Normal heart sounds. No murmur heard. Pulmonary: Effort: Pulmonary effort is normal. Breath sounds: Normal breath sounds. No wheezing or rales. Abdominal: Palpations: Abdomen is soft. There is no mass. Tenderness: There is no abdominal tenderness. Musculoskeletal: Cervical back: Full passive range of motion without pain and neck supple. Lymphadenopathy: Head: Right side of head: No submandibular adenopathy. Left side of head: No submandibular adenopathy. Cervical: No cervical adenopathy. Skin: General: Skin is warm. Neurological: Mental Status: He is alert and oriented to person, place, and time. Motor: Tremor (intentional) present. Psychiatric: Behavior: Behavior is cooperative. Laboratory findings: Recent Labs 06/01/22 0508 06/02/22 0529 WBC 9.8 10.4 HGB 12.5* 12.9* HCT 38.3* 40.3* PLT 334 336 Recent Labs 06/01/22 0508 06/02/22 0529 NA 142 141 K 3.6* 4.0 CL 108* 108* CO2 22 20 GLUCOSE 74 181* BUN 40* 31* CREATININE 2.52* 2.22* CALCIUM 8.6 8.6 No results for input(s): PROT, LABALBU, LABA1C, H4RNNRJ, E7GSGEW, FT4, TSH, AST, ALT, LDH, GGT, ALKPHOS, BILITOT, BILIDIR, AMMONIA, AMYLASE, LIPASE, LACTATE, CHOL, HDL, LDLCHOLESTEROL, CHOLHDLRATIO, TRIG, VLDL, BNP, TROPONINI, CKTOTAL, CKMB, CKMBINDEX, RF, AMY in the last 72 hours. Specific Grabill, UA Date Value Ref Range Status 05/28/2022 1.011 1.005 - 1.030 Final Protein, UA Date Value Ref Range Status 05/28/2022 2+ (A) NEGATIVE Final RBC, UA Date Value Ref Range Status 05/28/2022 TOO NUMEROUS TO COUNT 0 - 4 /HPF Final Comment: Reference range defined for non-centrifuged specimen. Nitrite, Urine Date Value Ref Range Status 05/28/2022 NEGATIVE NEGATIVE Final WBC, UA Date Value Ref Range Status 05/28/2022 10 TO 20 0 - 5 /HPF Final Leukocyte Esterase, Urine Date Value Ref Range Status 05/28/2022 TRACE (A) NEGATIVE Final Imaging / Clinical Data :- XR CHEST PORTABLE Result Date: 05/29/2022 1. Mild cardiomegaly. Mild pulmonary vascular congestion. 2. Old granulomatous disease. 3. No confluent airspace consolidation. US RETROPERITONEAL COMPLETE Result Date: 05/28/2022 No stone, mass or hydronephrosis within the kidneys. Kidneys have normal size. Clinical Course : gradually improving Assessment and Plan : Left ureteral stone s/p Cystoscopy, Coude catheter insertion and left ureteral stent placement - continue Flomax,Carballo catheter removed on 06/02/22. Acute kidney injury superimposed on chronic kidney disease stage III -treated with bicarb infusion and IV fluids, IV fluids. . Monitor creatinine. Lisinopril and aldactone on hold. KVO. Type 2 diabetes mellitus - insulin dependent - on U500 ( 85 Units BID) Essential hypertension Major depression - on Remeron, effexor, Rexulti ( dose adjustment for kidney function given neurologic side effects, change dose to home dose when kidney function improves ) Dyslipidemia Type 2 diabetes mellitus. Patient on U-500. Use 100 units 3 times daily with meals. Generalized debility and tremors from renal failure. PMNR following. Tremors - likely secondary to Psych medications - reports that medication ( Rexulti) was started few months before. Psych Consult pending . PT OT Planing discharge to acute rehab Continue to monitor vitals , Intake / output , Cell count , HGB , Kidney function, oxygenation as indicated . Plan and updates discussed with patient , answers explained to satisfaction. Discussed with and daughter ar bed side Plan discussed with zoo caretaker (Please note that portions of this note were completed with a voice recognition program. Efforts were made to edit the dictations but occasionally words are mis-transcribed.) Rosales Singh MD 06/03/2022 * Amanda Celestin RN - 06/02/2022 5:30 PM EST Patient's BG is 49 and 57. Patient and state patient takes U500 100 units BID, not TID with meals. Dr. Singh made aware. Awaiting order. * Carolina Marquez PTA - 06/02/2022 3:06 PM EST Physical Therapy Facility/Department: [facility] Physical Therapy Daily treatment note Name: Steven Walden : 1960 Date of Service: 06/02/2022 Discharge Recommendations: Patient would benefit from continued therapy after discharge PT Equipment Recommendations Equipment Needed: No Patient Diagnosis(es): The encounter diagnosis was Left ureteral stone. Past Medical History: has a past medical history of Anxiety, Chronic kidney disease, Congenital heart defect, Diabetes mellitus (HCC), Gout, Hyperlipidemia, Hypertension, Major depressive disorder, Morbid obesity (HCC), Neuropathy, SHADE (obstructive sleep apnea), and Peptic ulcer disease. Past Surgical History: has a past surgical history that includes Cholecystectomy (2010); Hand surgery (Right, 12/2021); Cystocopy (Left, 05/28/2022); and Cystoscopy (Left, 05/28/2022). Assessment Body Structures, Functions, Activity Limitations Requiring Skilled Therapeutic Intervention: Decreased functional mobility ;Decreased ROM;Decreased endurance;Decreased balance;Decreased fine motor control;Decreased coordination;Decreased posture Assessment: Pt ambulated ~32ft total with RW and Rebekah, unsteady with no true LOB, limited by tremors and decreased strength, endurance and balance. Pt currently unsafe to return to prior living arrangements, recommending continued PT to address deficits and assist in return to prior level of independence. Therapy Prognosis: Good Decision Making: High Complexity Requires PT Follow-Up: Yes Activity Tolerance Activity Tolerance: Patient tolerated treatment well Activity Tolerance Comments: BL/BUE tremors. Plan Physcial Therapy Plan General Plan: (5-6 x week) Current Treatment Recommendations: Strengthening, ROM, Balance training, Functional mobility training, Transfer training, Endurance training, Gait training, Stair training, Neuromuscular re-education, Home exercise program, Safety education & training, Patient/Caregiver education & training, Equipment evaluation, education, & procurement, Positioning, Therapeutic activities Safety Devices Type of Devices: Call light within reach, Gait belt, Patient at risk for falls, Left in chair, Chair alarm in place Restraints Restraints Initially in Place: No Restrictions Restrictions/Precautions Restrictions/Precautions: Surgical Protocols, Fall Risk, General Precautions, Contact Precautions, Up as Tolerated Required Braces or Orthoses?: No Position Activity Restriction Other position/activity restrictions: up with assist, ureteral stent 05/29 Subjective General Chart Reviewed: Yes Patient assessed for rehabilitation services?: Yes Response To Previous Treatment: Patient with no complaints from previous session. Family / Caregiver Present: Yes () Follows Commands: Within Functional Limits General Comment Comments: Pt returned to seated in chair at end of session with call light in reach and present. Subjective Subjective: Pt and RN agreeable to PT this afternoon. Pt seated in chair upon arrival with no c/o pain. Pt pleasant and cooperative throughout session. Cognition Orientation Overall Orientation Status: Within Functional Limits Orientation Level: Oriented X4 Cognition Overall Cognitive Status: WFL Objective: Bed mobility Supine to Sit: Unable to assess Sit to Supine: Unable to assess Bed Mobility Comments: Pt up in chair upon entry/exit this date. Transfers Sit to Stand: Minimal Assistance Stand to Sit: Minimal Assistance Bed to Chair: Unable to assess Stand Pivot Transfers: Unable to assess Comment: RW used for transfers, required Rebekah to stand from low bedside chair. Performed transfers x2 from chair. Ambulation Surface: Level tile Device: Rolling Walker Assistance: Minimal assistance Quality of Gait: very small steps, tremors BU/BLE, unsteady Gait Deviations: Slow Reyna;Increased ELSA;Decreased step length;Decreased step height Distance: 16ft x2 Comments: Pt ambulated with a slow cautious gait, no true LOB but very unsteady during ambulation. More Ambulation?: No Stairs/Curb Stairs?: No Balance Posture: Fair Sitting - Static: Good Sitting - Dynamic: Good Standing - Static: Good Standing - Dynamic: Fair;- Comments: RW used for standing balance. Exercise Treatment: Seated LE exercise program: Long Arc Quads, hip abduction/adduction, heel/toe raises, and marches. Reps: 15 Breathing Techniques: pursed lip breathing--constant verbal cues and visual cues/demonstration AM-PAC Score AM-PAC Inpatient Mobility Raw Score : 16 (06/02/22 1507) AM-PAC Inpatient T-Scale Score : 40.78 (06/02/22 1507) Mobility Inpatient CMS 0-100% Score: 54.16 (06/02/22 1507) Mobility Inpatient CMS G-Code Modifier : CK (06/02/221506) Goals Short Term Goals Time Frame for Short Term Goals: 12 visits Short Term Goal 1: independent bed mobility Short Term Goal 2: independent transfers Short Term Goal 3: independent gait with appropriate device vs none x 100' Short Term Goal 4: stair ambulation x 10 steps with 1 HR and CG+1 Short Term Goal 5: pt independent with pursed lip breathing to keep RR <24 Patient Goals Patient Goals : get better, go home Education Patient Education Education Given To: Patient Education Provided: Role of Therapy;Plan of Care;Home Exercise Program;Precautions;Transfer Training;Fall Prevention Strategies Education Method: Verbal;Demonstration Barriers to Learning: None Education Outcome: Demonstrated understanding;Verbalized understanding Therapy Time Individual Concurrent Group Co-treatment Time In 1114 Time Out 1140 Minutes 26 Timed Code Treatment Minutes: 26 Minutes Carolina Marquez PTA * Rosales Singh MD - 06/02/2022 3:05 PM EST Images from the original note were not included. [facility] Office: [phone] Chris Osman DO, Terrence Johns DO, Stefani Augustin DO, Jaspreet Mosley DO, Surekha Batista MD, Adrienne Means MD, Rosales Singh MD, Caitlyn Benz MD, Abdoul Camargo MD, Cathy Farooq MD, Chepe Cordova DO, Love Hess MD, Deja Guevara DO, April Girard MD, Arvin Maya MD, Jessica Osman DO, Shima Watson MD, Raphael Connor MD, Jerome Simon DO, Yoselyn Thakkar MD, Codi Self MD, Gilda Sousa MD, Vikki Adorno MD, Jarocho Real DO, Krishan Vogt MD, Radha William MD, Shaunna Freitas, HOUSE MOVING SUPERVISOR, Prabha Hauser, HOUSE MOVING SUPERVISOR, Shirlene Dacosta, HOUSE MOVING SUPERVISOR, Favian Ji, HOUSE MOVING SUPERVISOR, Yesenia Espino, [facility], Ema Mason, HOUSE MOVING SUPERVISOR, Calista Mendez, HOUSE MOVING SUPERVISOR, Gunjan Ruiz, [facility], Sharon Barry, HOUSE MOVING SUPERVISOR, Sri Weiner, [facility], Gillian Valles PA-C, Carleen Paiz, [facility], Catie Cheema, [facility], Chelsea Kulkarni, [facility] Daily Progress Note Admit Date: 05/28/2022 Bed/Room No. Admitting Physician : Rosales Singh MD Code Status :Full Code Hospital Day: LOS: 5 days Chief Complaint: Tremors Kidney failure Kidney stones Principal Problem: DAISY (acute kidney injury) (HCC) Active Problems: ARF (acute renal failure) (HCC) Chronic kidney disease Type 2 diabetes mellitus with stage 3a chronic kidney disease (HCC) Hyperlipidemia Primary hypertension Urinary tract obstruction by kidney stone Hydronephrosis of left kidney Atrophy of right kidney Left ureteral stone Debility Resolved Problems: * No resolved hospital problems. * Subjective : Interval History/Significant events : 06/02/22 Patient is doing better , still has tremors . Is sitting up in chair. Urine output good. Kidney function is improving . Vitals - Stable afebrile Labs - creatinine improving 7.05 -->> 3.07 >> 2.52 >> 2.22 Nursing notes , Consults notes reviewed. Overnight events and updates discussed with Nursing staff . Background History: Steven Walden is 62 y.o. male Who was admitted to the hospital on 05/28/2022 for treatment of DAISY (acute kidney injury) (HCC). Patient was transferred from [facility] to [facility] where he presented with generalizedtremors , weakness and inability to walk. He was noted to have Acute renal failure with Creatinine of 8. CT abdomen plevis showed left nephrolithiasis, atrophic right kidney, acute kidney injury. Patient has underlying history of diabetes mellitus, CKD stage III, hypertension, hyperlipidemia. Patient has cystoscopy with stent placement. Creatinine is improving. He has underlying severe depression , Unemployed for many years , SHADE on CPAP, morbid Obesity. PMH: Past Medical History: Diagnosis Date Anxiety Chronic kidney disease Congenital heart defect Diabetes mellitus (HCC) 2008 inulin dependent, neuropathy and CKD stage 3 Gout Hyperlipidemia Hypertension 2000 Major depressive disorder Morbid obesity (HCC) Neuropathy SHADE (obstructive sleep apnea) 2002 Peptic ulcer disease 2017 Duodenal Ulcer Allergies: No Known Allergies Medications : insulin regular human, 100 Units, SubCUTAneous, TID WC potassium bicarb-citric acid, 20 mEq, Oral, Once cephALEXin, 500 mg, Oral, 2 times per day brexpiprazole, 2 mg, Oral, Daily venlafaxine, 150 mg, Oral, Daily amLODIPine, 10 mg, Oral, Daily atorvastatin, 20 mg, Oral, Nightly budesonide-formoterol, 2 puff, Inhalation, BID lamoTRIgine, 200 mg, Oral, Daily [Held by provider] lisinopril, 20 mg, Oral, Daily metoprolol tartrate, 50 mg, Oral, BID mirtazapine, 30 mg, Oral, Nightly insulin lispro, 0-16 Units, SubCUTAneous, TID WC insulin lispro, 0-4 Units, SubCUTAneous, Nightly vitamin D, 50,000 Units, Oral, Weekly pantoprazole, 40 mg, Oral, QAM AC sodium chloride flush, 5-40 mL, IntraVENous, 2 times per day heparin (porcine), 5,000 Units, SubCUTAneous, 3 times per day dextrose, 25 g, IntraVENous, Once tamsulosin, 0.4 mg, Oral, Daily sodium chloride flush, 5-40 mL, IntraVENous, 2 times per day Review of Systems Review of Systems Constitutional: Positive for appetite change and fatigue. Negative for activity change, fever and unexpected weight change. HENT: Negative for congestion, nosebleeds, rhinorrhea, sinus pressure, sneezing and voice change. Respiratory: Negative for cough, choking, chest tightness, shortness of breath and wheezing. Cardiovascular: Negative for chest pain, palpitations and leg swelling. Gastrointestinal: Negative for abdominal pain, constipation, diarrhea, nausea and vomiting. Genitourinary: Negative for difficulty urinating, dysuria, frequency, penile discharge and testicular pain. Musculoskeletal: Negative for back pain. Skin: Negative for rash. Neurological: Positive for tremors. Negative for dizziness, weakness, light- headedness and headaches. Hematological: Does not bruise/bleed easily. Psychiatric/Behavioral: Negative for agitation, behavioral problems, confusion, self-injury, sleep disturbance and suicidal ideas. Objective : Current Vitals : Temp: 97.6 F (36.4 C), Heart Rate: 71, Resp: 18, BP: (!) 148/90, SpO2: 94 % Last 24 Hrs Vitals Patient Vitals for the past 24 hrs: BP Temp Temp src Pulse Resp SpO2 06/02/22 1227 (!) 148/90 97.6 F (36.4 C) Oral 71 18 94 % 06/02/22 0818 (!) 142/79 98.1 F (36.7 C) Oral 74 17 93 % 06/02/22 0350 (!) 111/97 97.7 F (36.5 C) Oral 69 16 95 % 06/01/22 2351 (!) 145/64 97.9 F (36.6 C) Oral 81 19 94 % 06/01/221999 -- -- -- 65 -- -- 06/01/221957 -- -- -- 69 17 -- 06/01/221954 -- -- -- 62 -- -- 06/01/221952 (!) 131/98 98.1 F (36.7 C) Oral 67 22 95 % 06/01/22 1716 (!) 149/98 97.9 F (36.6 C) Oral 73 22 93 % Intake / output 05/31 1901 - 06/02 0700 In: 1251.1 [P.O.:800; I.V.:451.1] Out: 4450 [Urine:4450] Physical Exam: Physical Exam Vitals and nursing note reviewed. Constitutional: General: He is not in acute distress. Appearance: He is morbidly obese. He is ill-appearing. He is not diaphoretic. HENT: Head: Normocephalic and atraumatic. Nose: Right Sinus: No maxillary sinus tenderness or frontal sinus tenderness. Left Sinus: No maxillary sinus tenderness or frontal sinus tenderness. Mouth/Throat: Pharynx: No oropharyngeal exudate. Eyes: General: No scleral icterus. Conjunctiva/sclera: Conjunctivae normal. Pupils: Pupils are equal, round, and reactive to light. Neck: Thyroid: No thyromegaly. Vascular: No JVD. Cardiovascular: Rate and Rhythm: Normal rate and regular rhythm. Pulses: Dorsalis pedis pulses are 2+ on the right side and 2+ on the left side. Heart sounds: Normal heart sounds. No murmur heard. Pulmonary: Effort: Pulmonary effort is normal. Breath sounds: Normal breath sounds. No wheezing or rales. Abdominal: Palpations: Abdomen is soft. There is no mass. Tenderness: There is no abdominal tenderness. Musculoskeletal: Cervical back: Full passive range of motion without pain and neck supple. Lymphadenopathy: Head: Right side of head: No submandibular adenopathy. Left side of head: No submandibular adenopathy. Cervical: No cervical adenopathy. Skin: General: Skin is warm. Neurological: Mental Status: He is alert and oriented to person, place, and time. Motor: Tremor (intentional) present. Psychiatric: Behavior: Behavior is cooperative. Laboratory findings: Recent Labs 05/31/22 0552 06/01/22 0508 06/02/22 0529 WBC 7.9 9.8 10.4 HGB 12.5* 12.5* 12.9* HCT 38.1* 38.3* 40.3* PLT 227 334 336 Recent Labs 05/31/22 0552 06/01/22 0508 06/02/22 0529 NA 140 142 141 K 3.8 3.6* 4.0 CL 105 108* 108* CO2 GLUCOSE 183* 74 181* BUN 54* 40* 31* CREATININE 3.07* 2.52* 2.22* CALCIUM 8.4* 8.6 8.6 No results for input(s): PROT, LABALBU, LABA1C, R1OEYXW, T9BFYBG, FT4, TSH, AST, ALT, LDH, GGT, ALKPHOS, BILITOT, BILIDIR, AMMONIA, AMYLASE, LIPASE, LACTATE, CHOL, HDL, LDLCHOLESTEROL, CHOLHDLRATIO, TRIG, VLDL, BNP, TROPONINI, CKTOTAL, CKMB, CKMBINDEX, RF, AMY in the last 72 hours. Specific [place], UA Date Value Ref Range Status 05/28/2022 1.011 1.005 - 1.030 Final Protein, UA Date Value Ref Range Status 05/28/2022 2+ (A) NEGATIVE Final RBC, UA Date Value Ref Range Status 05/28/2022 TOO NUMEROUS TO COUNT 0 - 4 /HPF Final Comment: Reference range defined for non-centrifuged specimen. Nitrite, Urine Date Value Ref Range Status 05/28/2022 NEGATIVE NEGATIVE Final WBC, UA Date Value Ref Range Status 05/28/2022 10 TO 20 0 - 5 /HPF Final Leukocyte Esterase, Urine Date Value Ref Range Status 05/28/2022 TRACE (A) NEGATIVE Final Imaging / Clinical Data :- XR CHEST PORTABLE Result Date: 05/29/2022 1. Mild cardiomegaly. Mild pulmonary vascular congestion. 2. Old granulomatous disease. 3. No confluent airspace consolidation. US RETROPERITONEAL COMPLETE Result Date: 05/28/2022 No stone, mass or hydronephrosis within the kidneys. Kidneys have normal size. Clinical Course : gradually improving Assessment and Plan : Left ureteral stone s/p Cystoscopy, Coude catheter insertion and left ureteral stent placement - continue Flomax, remove Carballo catheter. Acute kidney injury superimposed on chronic kidney disease stage III -treated with bicarb infusion and IV fluids. Stop IV fluids. . Monitor creatinine. Lisinopril and aldactone on hold . Type 2 diabetes mellitus - insulin dependent - on U500 ( 100 Units BID) Essential hypertension Major depression - on Remeron, effexor, Rexulti ( dose adjustment for kidney function given neurologic side effects, change dose to home dose when kidney function improves ) Dyslipidemia Type 2 diabetes mellitus. Patient on U-500. Use 100 units 3 times daily with meals. Generalized debility and tremors from renal failure. PMNR following. Tremors - likely secondary to Psych medications - reports that medication ( Rexulti) was started few months before. consult Psych . PT OT Continue to monitor vitals , Intake / output , Cell count , HGB , Kidney function, oxygenation as indicated . Plan and updates discussed with patient , answers explained to satisfaction. Discussed with and daughter ar bed side Plan discussed with zoo caretaker (Please note that portions of this note were completed with a voice recognition program. Efforts were made to edit the dictations but occasionally words are mis-transcribed.) Rosales Singh MD 06/02/2022 * Shelley Huggins MD - 06/02/2022 2:01 PM EST Physical Medicine & Rehabilitation Progress Note Admitting Physician: Rosales Singh MD Primary Care Provider: No primary care provider on file. Chief Complaint: Flank pain, fever Brief History: This is a follow up to the initial consult on Mr. Steven Walden who is a 62 y.o. male admitted to [facility] on 05/28/2022. He initially presented to [facility] with flank pain and fever for 2 days. He was found to have obstructing kidney stone and DAISY. He underwent urethral dilation, cystoscopy, left ureteral stent insertion, and difficult carballo catheter insertion on 05/28/22 (Dr. Myles). He has been noted tohave tremors in all limbs - MRI brain pending. Subjective: He reports feeling pretty well today. He notes ongoing tremors and mild shortness of breath. He denies any pain. ROS: Review of Systems Constitutional: Negative for fever. Respiratory: Positive for shortness of breath. Cardiovascular: Negative for chest pain. Gastrointestinal: Negative for abdominal pain. Neurological: Positive for tremors. Rehabilitation: Physical Therapy Restrictions/Precautions: Surgical Protocols, Fall Risk, General Precautions, Contact Precautions, Up as Tolerated Other position/activity restrictions: up with assist, ureteral stent 05/29 Bed mobility Rolling to Right: Minimal assistance Supine to Sit: Unable to assess Sit to Supine: Unable to assess Scooting: Unable to assess Bed Mobility Comments: Pt up in chair upon entry/exit this date. Transfers Sit to Stand: Minimal Assistance Stand to Sit: Minimal Assistance Bed to Chair: Moderate assistance Stand Pivot Transfers: Moderate Assistance Comment: RW used for transfers, required Rebekah to stand from low bedside chair. Performed transfers x2 from chair. Ambulation Surface: Level tile Device: Rolling Walker Assistance: Minimal assistance Quality of Gait: very small steps, tremors BU/BLE, unsteady Gait Deviations: Slow Reyna, Increased ELSA, Decreased step length, Decreased step height Distance: 16ft x2 Comments: Pt ambulated with a slow cautious gait, no true LOB but very unsteady during ambulation. More Ambulation?: No Occupational Therapy ADL Feeding: Modified independent Grooming: Stand by assistance, Setup UE Bathing: Minimal assistance LE Bathing: Moderate assistance UE Dressing: Minimal assistance LE Dressing: Moderate assistance Toileting: Minimal assistance Additional Comments: OT facilitated pt in donning/doffing sock while sitting in chair. pt able to doff socks, but required mod A for donning d/t tremors and decreased trunk flexion Speech Therapy Current Medications: Current Facility-Administered Medications: insulin regular human (humuLIN R U- 500 KWIKPEN) 500 UNIT/ML concentrated injection pen 100 Units, 100 Units, SubCUTAneous, TID WC potassium bicarb-citric acid (EFFER-K) effervescent tablet 20 mEq, 20 mEq, Oral, Once HYDROcodone-acetaminophen (NORCO) 5-325 MG per tablet 1 tablet, 1 tablet, Oral, Q6H PRN cephALEXin (KEFLEX) capsule 500 mg, 500 mg, Oral, 2 times per day brexpiprazole (REXULTI) tablet 2 mg, 2 mg, Oral, Daily venlafaxine (EFFEXOR XR) extended release capsule 150 mg, 150 mg, Oral, Daily albuterol sulfate HFA (PROVENTIL;VENTOLIN;PROAIR) 108 (90 Base) MCG/ACT inhaler 2 puff, 2 puff, Inhalation, Q6H PRN ALPRAZolam (XANAX) tablet 0.5 mg, 0.5 mg, Oral, Nightly PRN amLODIPine (NORVASC) tablet 10 mg, 10 mg, Oral, Daily atorvastatin (LIPITOR) tablet 20 mg, 20 mg, Oral, Nightly budesonide-formoterol (SYMBICORT) 80-4.5 MCG/ACT inhaler 2 puff, 2 puff, Inhalation, BID lamoTRIgine (LAMICTAL) tablet 200 mg, 200 mg, Oral, Daily [Held by provider] lisinopril (PRINIVIL;ZESTRIL) tablet 20 mg, 20 mg, Oral, Daily metoprolol tartrate (LOPRESSOR) tablet 50 mg, 50 mg, Oral, BID mirtazapine (REMERON) tablet 30 mg, 30 mg, Oral, Nightly glucose chewable tablet 16 g, 4 tablet, Oral, PRN dextrose bolus 10% 125 mL, 125 mL, IntraVENous, PRN OR dextrose bolus 10% 250 mL, 250 mL, IntraVENous, PRN glucagon (rDNA) injection 1 mg, 1 mg, IntraMUSCular, PRN dextrose 10 % infusion, , IntraVENous, Continuous PRN insulin lispro (HUMALOG) injection vial 0-16 Units, 0-16 Units, SubCUTAneous, TID WC insulin lispro (HUMALOG) injection vial 0-4 Units, 0-4 Units, SubCUTAneous, Nightly vitamin D (ERGOCALCIFEROL) capsule 50,000 Units, 50,000 Units, Oral, Weekly pantoprazole (PROTONIX) tablet 40 mg, 40 mg, Oral, QAM AC sodium chloride flush 0.9 % injection 5-40 mL, 5-40 mL, IntraVENous, 2 times per day sodium chloride flush 0.9 % injection 5-40 mL, 5-40 mL, IntraVENous, PRN 0.9 % sodium chloride infusion, , IntraVENous, PRN ondansetron (ZOFRAN-ODT) disintegrating tablet 4 mg, 4 mg, Oral, Q8H PRN OR ondansetron (ZOFRAN) injection 4 mg, 4 mg, IntraVENous, Q6H PRN acetaminophen (TYLENOL) tablet 650 mg, 650 mg, Oral, Q6H PRN OR acetaminophen (TYLENOL) suppository 650 mg, 650 mg, Rectal, Q6H PRN heparin (porcine) injection 5,000 Units, 5,000 Units, SubCUTAneous, 3 times per day dextrose 50 % IV solution, 25 g, IntraVENous, Once tamsulosin (FLOMAX) capsule 0.4 mg, 0.4 mg, Oral, Daily hyoscyamine (LEVSIN/SL) sublingual tablet 125 mcg, 125 mcg, SubLINGual, Q4H PRN sodium chloride flush 0.9 % injection 5-40 mL, 5-40 mL, IntraVENous, 2 times per day sodium chloride flush 0.9 % injection 5-40 mL, 5-40 mL, IntraVENous, PRN 0.9 % sodium chloride infusion, , IntraVENous, PRN Objective: BP (!) 142/79 Pulse 74 Temp 97.7 F (36.5 C) (Oral) Resp 16 Ht 6' 3.98 (1.93 m) Wt (!) 364 lb 10.3 oz (165.4 kg) SpO2 95% BMI 44.40 kg/m GEN: Well developed, well nourished, no acute distress HEENT: NCAT. EOM grossly intact. Hearing grossly intact. Mucous membranes pink and moist. RESP: Normal breath sounds with no wheezing, rales, or rhonchi. Respirations WNL and unlabored. CV: Regular rate and rhythm. No murmurs, rubs, or gallops. ABD: Soft, non-distended, BS+ and equal. NEURO: Alert. Speech fluent. Sensation to light touch decreased in bilateral feet, right greater than left. MSK: Muscle tone and bulk are normal bilaterally. Strength 4+/5 in all limbs. LIMBS: No edema in bilateral lower limbs. SKIN: Warm and dry with good turgor. PSYCH: Mood WNL. Affect WNL. Appropriately interactive. Diagnostics: CBC: Recent Labs 05/31/22 0552 06/01/22 0508 06/02/22 0529 WBC 7.9 9.8 10.4 RBC 4.08* 4.06* 4.19* HGB 12.5* 12.5* 12.9* HCT 38.1* 38.3* 40.3* MCV 93.4 94.3 96.2 RDW 14.2 14.3 13.8 PLT 227 334 336 BMP: Recent Labs 05/31/22 0552 06/01/22 0508 06/02/22 0529 NA 140 142 141 K 3.8 3.6* 4.0 CL 105 108* 108* CO2 21 22 20 BUN 54* 40* 31* CREATININE 3.07* 2.52* 2.22* BNP: No results for input(s): BNP in the last 72 hours. PT/INR: No results for input(s): PROTIME, INR in the last 72 hours. APTT: No results for input(s): APTT in the last 72 hours. CARDIAC ENZYMES: No results for input(s): CKMB, CKMBINDEX, TROPONINT in the last 72 hours. Invalid input(s): CKTOTAL;3 FASTING LIPID PANEL:No results found for: CHOL, HDL, TRIG LIVER PROFILE: No results for input(s): AST, ALT, ALB, BILIDIR, BILITOT, ALKPHOS in the last 72 hours. Reviewed notes from OT. Impression: Debility secondary to obstructing nephrolithiasis s/p left ureteral stent insertion on 05/28 DAISY on CKD - improving Tremors Anemia HTN HLD Diabetes History of peptic ulcer Gout Depression Morbid obesity Recommendations: Diagnosis: Debility secondary to obstructing nephrolithiasis s/p left ureteral stent insertion, AKIon CKD Therapy: Has PT/OT needs Medical Necessity: As above Support: Lives with spouse Rehab Recommendation: The patient will benefit from acute inpatient rehabilitation once medically stable per primary service. Anticipate he will be able to tolerate 3 hours of therapy per day in rehabilitation. The patient requires multidisciplinary rehabilitation treatment including medical management by a PM&R physician, 24 hour rehabilitation nursing, physical therapy, occupational therapy, rehabilitation social work, and nutrition services. Patient and family also require education in post-hospital precautions and home exercise routine, adaptive techniques and deficit compensation strategies, strengthening and conditioning, equipment prescription and instructions in use. DVT Prophylaxis: Heparin * Maribell Bonilla OT - 06/02/2022 1:21 PM EST Occupational Therapy Facility/Department: [facility] [place] [facility] Occupational Therapy Initial Assessment Name: Steven Walden : 1960 Date of Service: 06/02/2022 Discharge Recommendations: Further therapy recommended at discharge.The patient should be able to tolerate at least 3 hours oftherapy per day over 5 days or 15 hours over 7 days. This patient may benefit from a Physical Medicine and Rehab consult. Patient Diagnosis(es): The encounter diagnosis was Left ureteral stone. Past Medical History: has a past medical history of Anxiety, Chronic kidney disease, Congenital heart defect, Diabetes mellitus (HCC), Gout, Hyperlipidemia, Hypertension, Major depressive disorder, Morbid obesity (HCC), Neuropathy, SHADE (obstructive sleep apnea), and Peptic ulcer disease. Past Surgical History: has a past surgical history that includes Cholecystectomy (2010); Hand surgery (Right, 12/2021); Cystocopy (Left, 05/28/2022); and Cystoscopy (Left, 05/28/2022). Assessment Performance deficits / Impairments: Decreased functional mobility ;Decreased ADL status;Decreased endurance;Decreased high-level IADLs;Decreased fine motor control;Decreased coordination;Decreased balance Assessment: pt demonstrated above deficits impacting occupational performance. pt would be unsafe to return to prior living arrangement at this time d/t increased risk for falls. pt would benefit from further therapy at discharge in order to increase safety and independencewith ADLS and functional t ransfers/functional mobility. Prognosis: Good Decision Making: Medium Complexity REQUIRES OT FOLLOW-UP: Yes Activity Tolerance Activity Tolerance: Patient Tolerated treatment well Plan Occupational Therapy Plan Times Per Week: 3-5x/wk Restrictions Restrictions/Precautions Restrictions/Precautions: Surgical Protocols, Fall Risk, General Precautions, Contact Precautions, Up as Tolerated Required Braces or Orthoses?: No Position Activity Restriction Other position/activity restrictions: up with assist, ureteral stent 05/29 Subjective General Patient assessed for rehabilitation services?: Yes Family / Caregiver Present: No Diagnosis: DAISY General Comment Comments: RN ok'd fortherapy this morning. pt agreeable to participate in session and cooperative/pleasant throughout throughout. pt denied pain Social/Functional History Social/Functional History Lives With: Spouse Type of Home: House Home Layout: One level Home Access: Stairs to enter with rails Entrance Stairs - Number of Steps: 8 Entrance Stairs - Rails: Right Bathroom Shower/Tub: Walk-in shower Bathroom Toilet: Standard Bathroom Equipment: Shower chair Home Equipment: Cane (pt reported no use of DME at baseline) ADL Assistance: Independent Homemaking Assistance: Independent Homemaking Responsibilities: No (pt reported completes majority of IADLs) Ambulation Assistance: Independent Transfer Assistance: Independent Active Scada Operator: Yes Mode of Transportation: Van 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 Leisure & Hobbies: stamp collection Additional Comments: pt reported able to provide 24hr supervision if needed Objective Safety Devices Type of Devices: Call light within reach;Gait belt;Patient at risk for falls;Left in chair;Chair alarm in place Restraints Restraints Initially in Place: No Bed Mobility Training Bed Mobility Training: Yes Overall Level of Assistance: Stand-by assistance;Additional time Supine to Sit: Stand-by assistance Sit to Supine: (pt retired to chair at end of session) Scooting: Stand-by assistance Balance Sitting: Intact (~15 minutes on eOB and in chair with SBA) Standing: With support (~2 minutes. pt completed static standing at bedside and took a few steps totransfer to chair from bed. pt required min A with hand held assist d/t unsteadiness.) Transfer Training Transfer Training: Yes Overall Level of Assistance: Contact-guard assistance (hand held) Sit to Stand: Contact-guard assistance Stand to Sit: Contact-guard assistance Gait Overall Level of Assistance: Minimum assistance AROM: Within functional limits Strength: Generally decreased, functional (B uniform designer 4/5) Coordination: Generally decreased, functional (pt exhibited B UE tremors impacting B UE coordination and accuracy. pt reported difficulty holding onto objects) Tone: Normal Sensation: Impaired (pt reported neuropathy to B feet) ADL Feeding: Modified independent Grooming: Stand by assistance;Setup UE Bathing: Minimal assistance LE Bathing: Moderate assistance UE Dressing: Minimal assistance LE Dressing: Moderate assistance Toileting: Minimal assistance Additional Comments: OT facilitated pt in donning/doffing sock while sitting in chair. pt able to doff socks, but required mod A for donning d/t tremors and decreased trunk flexion Vision Vision: Impaired Vision Exceptions: Wears glasses at all times Hearing Hearing: Within functional limits Cognition Overall Cognitive Status: WFL Orientation Overall Orientation Status: Within Functional Limits Education Given To: Patient Education Provided: Role of Therapy;Plan of Care;Transfer Training Education Provided Comments: benefits of being OOB, different rehab options Education Method: Verbal Barriers to Learning: None Education Outcome: Verbalized understanding LUE AROM (degrees) LUE AROM : WFL Left Hand AROM (degrees) Left Hand AROM: WFL RUE AROM (degrees) RUE AROM : WFL Right Hand AROM (degrees) Right Hand AROM: WFL Hand Dominance Hand Dominance: Right AM-PAC Score AM-PAC Inpatient Daily Activity Raw Score: 17 (06/02/221316) AM-PAC Inpatient ADL T-Scale Score : 37.26 (06/02/221316) ADL Inpatient CMS 0-100% Score: 50.11 (06/02/221316) ADL Inpatient CMS G-Code Modifier : CK (06/02/221316) Goals Short Term Goals Time Frame for Short Term Goals: pt will, by discharge Short Term Goal 1: complete LB ADLs with min A, set up and Ae, as needed Short Term Goal 2: complete UB ADLs with mod I and set up Short Term Goal 3: dem CGA during functional transfers/functional mobility with LRd, as needed Short Term Goal 4: dem ~5 minutes dynamic standing tolerance with CGA in order to complete functional tasks Short Term Goal 5: participate in meaningful task for 15+ minutes in order to increase B UE coordination Therapy Time Individual Concurrent Group Co-treatment Time In 1041 Time Out 1105 Minutes 24 Timed Code Treatment Minutes: 15 Minutes Maribell Bonilla OTR/L * Mane Triplett MD - 06/01/2022 4:37 PM EST Renal Progress Note Patient : Steven Walden; 62 y.o. Location: Attending: Rosales Singh MD Admit Date: 05/28/2022 Hospital Day: 4 Subjective: Following for DAISY secondary to obstructive uropathy s/p left ureteral stent, ATN/SIRS from complicated UTI. Creatinine peaked to 8.0. He does have CKD III with unknown baseline, has followed up with nephrology although has not seen them in 6 years. Presented to the hospital with 2-day history of generalized weakness difficulty ambulation tremors unsteady gait and decreased appetite. On the day of admission his blood sugar was 46. He was taken to [facility] was found to have a creatinine of 8. Imaging study showed atrophic right kidney and left hydronephrosis with left ureteral stone. He was then transferred to [facility]. Lab work initially showed a potassium of 5.6 and bicarb of 9. He was seen by urology taken emergently to the OR underwent cystoscopy was found to have significant phimosis and significant urethral obstruction requiring dilatation for rigid cystoscope could be placed. Thereafter left ureteral orifice was cannulated and left ureteral stent was placed by bypassing the stone. He had brisk urine output. Carballo catheter was then placed. Coud and urology instructed not to remove the catheter. Postprocedure he had a study improvement in renal function. Creatinine this morning down to 2.5 mg/dl from yesterday's 3.07 rest of the labs show potassium of 3.6 bicarb 22 calcium 8.6 hemoglobin 12.5 white count 9.8 Oral intake good, normal saline has been discontinued. Blood sugars still fluctuate some readings are high. Blood pressures fluctuate as well. Awaiting placement. Intention tremor evident no resting tremor no myoclonus. Carballo catheter in place hematuria noted but hemoglobin stable Outpatient Medications: Medications Prior to Admission: venlafaxine (EFFEXOR XR) 75 MG extended release capsule, Take 225 mg by mouth daily brexpiprazole (REXULTI) 4 MG TABS tablet, Take 4 mg by mouth daily mirtazapine (REMERON) 30 MG tablet, Take 30 mg by mouth nightly lamoTRIgine (LAMICTAL) 200 MG tablet, Take 200 mg by mouth daily gabapentin (NEURONTIN) 300 MG capsule, Take 300 mg by mouth 2 times daily. omeprazole (PRILOSEC) 40 MG delayed release capsule, Take 40 mg by mouth daily atorvastatin (LIPITOR) 20 MG tablet, Take 20 mg by mouth nightly allopurinol (ZYLOPRIM) 100 MG tablet, Take 100 mg by mouth daily amLODIPine (NORVASC) 10 MG tablet, Take 10 mg by mouth daily metoprolol tartrate (LOPRESSOR) 50 MG tablet, Take 50 mg by mouth 2 times daily spironolactone (ALDACTONE) 25 MG tablet, Take 25 mg by mouth daily insulin regular human (HUMULIN R) 500 UNIT/ML concentrated injection vial, Inject 200 Units into the skin 3 times daily (with meals) Dulaglutide 0.75 MG/0.5ML SOPN, Inject 0.75 mg into the skin once a week Mondays budesonide-formoterol (SYMBICORT) 80-4.5 MCG/ACT AERO, Inhale 2 puffs into the lungs 2 times daily vitamin D (ERGOCALCIFEROL) 1.25 MG (36189 UT) CAPS capsule, Take 50,000 Units by mouth once a week Tuesday promethazine (PHENERGAN) 12.5 MG tablet, Take 12.5 mg by mouth every 6 hours as needed for Nausea ALPRAZolam (XANAX) 0.5 MG tablet, Take 0.5 mg by mouth nightly as needed for Sleep. albuterol sulfate HFA (VENTOLIN HFA) 108 (90 Base) MCG/ACT inhaler, Inhale 2 puffs into the lungs every 6 hours as needed for Wheezing lisinopril (PRINIVIL;ZESTRIL) 20 MG tablet, Take 20 mg by mouth daily Current Medications: Scheduled Meds: insulin regular human 100 Units SubCUTAneous TID WC potassium bicarb-citric acid 20 mEq Oral Once spironolactone 25 mg Oral Once cephALEXin 500 mg Oral 2 times per day brexpiprazole 2 mg Oral Daily venlafaxine 150 mg Oral Daily amLODIPine 10 mg Oral Daily atorvastatin 20 mg Oral Nightly budesonide-formoterol 2 puff Inhalation BID lamoTRIgine 200 mg Oral Daily [Held by provider] lisinopril 20 mg Oral Daily metoprolol tartrate 50 mg Oral BID mirtazapine 30 mg Oral Nightly insulin lispro 0-16 Units SubCUTAneous TID WC insulin lispro 0-4 Units SubCUTAneous Nightly vitamin D 50,000 Units Oral Weekly pantoprazole 40 mg Oral QAM AC sodium chloride flush 5-40 mL IntraVENous 2 times per day heparin (porcine) 5,000 Units SubCUTAneous 3 times per day dextrose 25 g IntraVENous Once tamsulosin 0.4 mg Oral Daily sodium chloride flush 5-40 mL IntraVENous 2 times per day Continuous Infusions: dextrose sodium chloride sodium chloride PRN Meds: HYDROcodone 5 mg - acetaminophen, albuterol sulfate HFA, ALPRAZolam, glucose, dextrose bolus OR dextrose bolus, glucagon (rDNA), dextrose, sodium chloride flush, sodium chloride, ondansetron OR ondansetron, acetaminophen OR acetaminophen, hyoscyamine, sodium chloride flush, sodium chloride Input/Output: I/O last 3 completed shifts: In: 3121.4 [P.O.:1200; I.V.:1771.6; IV Piggyback:149.8] Out: 4485 [Urine:4485]. Patient Vitals for the past 96 hrs (Last 3 readings): Weight 06/01/22 0428 (!) 364 lb 10.3 oz (165.4 kg) 05/31/22 0400 (!) 361 lb 15.9 oz (164.2 kg) 05/30/22 0514 (!) 359 lb 2.1 oz (162.9 kg) Vital Signs: Temperature: Temp: 97.9 F (36.6 C) TMax: Temp (24hrs), Av.9 F (36.6 C), Min:97.5 F (36.4 C), Max:98.2 F (36.8 C) Respirations: Resp: 21 Pulse: Heart Rate: 72 BP: BP: (!) 147/108 BP Range: Systolic (24hrs), Av , Min:118 , Max:147 Diastolic (24hrs), Av, Min:72, Max:108 Physical Examination: General: AAO x 3, speaking in full sentences, no accessory muscle use. HEENT: Atraumatic, normocephalic, moist mucosa. Eyes: Normal conjunctiva, no icterus Neck: No JVD, midline trachea no accessory muscle use Chest: Normal bilateral air entry and clear to auscultation bilaterally and symmetrically without any wheezes or rales or rhonchi Cardiac: Regular rate and rhythm with positive S1 and S2 and no rubs or gallops Abdomen: Obese and soft and not tender and not distended with active bowel sounds Neuro: AAO x 3, No FND. SKIN: No rashes, good skin turgor. Extremities: No edema, palpable peripheral pulses, no calf tenderness. Labs: Recent Labs 05/30/22 0308 05/31/22 0552 06/01/22 0508 WBC 8.3 7.9 9.8 RBC 4.32 4.08* 4.06* HGB 13.2 12.5* 12.5* HCT 41.1 38.1* 38.3* MCV 95.1 93.4 94.3 MCH 30.6 30.6 30.8 MCHC 32.1 32.8 32.6 RDW 14.2 14.2 14.3 PLT 206 227 334 MPV 10.2 10.2 11.0 BMP: Recent Labs 05/30/22 0308 05/30/22 0945 05/30/22 1501 05/31/22 0552 06/01/22 0508 NA 143 < > 141 140 142 K 4.3 < > 3.9 3.8 3.6* CL 109* < > 107 105 108* CO2 20 < > 21 21 22 BUN 71* -- -- 54* 40* CREATININE 4.53* -- -- 3.07* 2.52* GLUCOSE 189* -- -- 183* 74 CALCIUM 8.6 -- -- 8.4* 8.6 < > = values in this interval not displayed. Phosphorus: No results for input(s): PHOS in the last 72 hours. Magnesium: Recent Labs 05/30/22 0308 MG 1.9 Albumin: Recent Labs 05/30/22 0308 LABALBU 3.0* SPEP: Lab Results Component Value Date/Time PROT 6.6 05/30/2022 03:08 AM ALBCAL 3.4 05/28/2022 08:45 PM ALBPCT 51 05/28/2022 08:45 PM LABALPH 0.3 05/28/2022 08:45 PM LABALPH 1.1 05/28/2022 08:45 PM A1PCT 4 05/28/2022 08:45 PM A2PCT 16 05/28/2022 08:45 PM LABBETA 0.9 05/28/2022 08:45 PM BETAPCT 14 05/28/2022 08:45 PM GAMGLOB 1.0 05/28/2022 08:45 PM GGPCT 15 05/28/2022 08:45 PM PATH ELECTRONICALLY SIGNED. KUSUM VILLAFANA M.D. 05/28/2022 08:45 PM PATH ELECTRONICALLY SIGNED. KUSUM VILLAFANA M.D. 05/28/2022 08:45 PM C3: Lab Results Component Value Date/Time C3 185 05/28/2022 08:45 PM C4: Lab Results Component Value Date/Time C4 62 05/28/2022 08:45 PM Urinalysis/Chemistries: Lab Results Component Value Date/Time NITRU NEGATIVE 05/28/2022 06:21 PM COLORU Yellow 05/28/2022 06:21 PM PHUR 5.5 05/28/2022 06:21 PM WBCUA 10 TO 20 05/28/2022 06:21 PM RBCUA TOO NUMEROUS TO COUNT 05/28/2022 06:21 PM SPECGRAV 1.011 05/28/2022 06:21 PM LEUKOCYTESUR TRACE 05/28/2022 06:21 PM UROBILINOGEN Normal 05/28/2022 06:21 PM BILIRUBINUR NEGATIVE 05/28/2022 06:21 PM GLUCOSEU NEGATIVE 05/28/2022 06:21 PM KETUA NEGATIVE 05/28/2022 06:21 PM Urine Sodium: Lab Results Component Value Date/Time KYLAH 61 05/28/2022 06:21 PM Urine Osmolarity: Lab Results Component Value Date/Time OSMOU 317 05/28/2022 06:21 PM Urine Creatinine: Lab Results Component Value Date/Time LABCREA 82.7 05/28/2022 06:21 PM Radiology: CXR: Assessment: 1. Acute Kidney Injury: Secondary to obstructive uropathy from left ureteral obstruction, left nephrolithiasis in a patient with an atrophic right kidney on imaging studies. Additionally, ischemic ATN from systemic inflammatory response syndrome related to complicated UTI. Creatinine peaked to 8.0 and is down to 3.07 today with normal electrolytes. 2. Chronic kidney disease stage III based on history baseline creatinine not known has followed up with nephrology in the past, last seen 6 years ago. Baseline unknown. 3. Left hydronephrosis s/p cystoscopy and left ureter stent. Continues to have carballo catheter in place per urology. 4. Obstructive uropathy and a solitary functioning left kidney secondary to left ureteral obstruction from left nephrolithiasis appears to be acute in nature given the sudden onset of symptoms over aperiod of 2 days, status post cystoscopy left ureteral stent placement. Also found to have severe phimosis and urethral obstruction requiring urethral dilatation 5. Hyperkalemia from acute kidney injury and hemolyzed specimen and Aldactone use and extracellularshift from metabolic acidosis, potassium was 5.6 on presentation 6. Diabetes mellitus type 2 7. Complicated UTI 8. Mild anemia of chronic disease with hemoglobin 12.5 today Plan: 1. Discontinue maintenance IV fluids 2. Patient is stable for discharge from a nephrology standpoint 3. Carballo management per urology 4. Patient should be seen in the [facility] with Dr. Triplett within the next 3 to 4 weeks. Clinic number is [phone] 5. Expect continued renal recovery 6. If internal medicine could order weekly basic metabolic panel for the next 4 weeks with results to Dr. Triplett, nephrology would appreciate it 7. Start Aldactone 25 daily, hold off starting lisinopril he seen in the office by me 8. Replace potassium 9. Nothing else to add we will sign off please call for questions Mane Triplett MD Nephrology Attending Physician [facility] 05/31/2022 * Amanda Aguilera, STOCKKEEPER - 06/01/2022 4:22 PM EST Physical Therapy Facility/Department: [facility] Physical Therapy Daily Treatment Note Name: Steven Walden : 1960 Date of Service: 06/01/2022 Discharge Recommendations: Patient would benefit from continued therapy after discharge PT Equipment Recommendations Equipment Needed: No Patient Diagnosis(es): The encounter diagnosis was Left ureteral stone. Past Medical History: has a past medical history of Anxiety, Chronic kidney disease, Congenital heart defect, Diabetes mellitus (HCC), Gout, Hyperlipidemia, Hypertension, Major depressive disorder, Morbid obesity (HCC), Neuropathy, SHADE (obstructive sleep apnea), and Peptic ulcer disease. Past Surgical History: has a past surgical history that includes Cholecystectomy (2010); Hand surgery (Right, 12/2021); Cystocopy (Left, 05/28/2022); and Cystoscopy (Left, 05/28/2022). Assessment Body Structures, Functions, Activity Limitations Requiring Skilled Therapeutic Intervention: Decreased functional mobility ;Decreased ROM;Decreased endurance;Decreased balance;Decreased fine motor control;Decreased coordination;Decreased posture Assessment: Pt ambulated ~32ft total with RW and Rebekah, unsteady with no true LOB, 1 seated rest break required. Pt most limited by tremors and decreased strength, endurance and balance. Pt currently unsafe to return to prior living arrangements, recommending continued PT to address deficits and assist in return to prior level of independence. Therapy Prognosis: Good Requires PT Follow-Up: Yes Activity Tolerance Activity Tolerance: Patient limited by endurance;Patient tolerated treatment well Activity Tolerance Comments: BL/BUE tremors. Plan Physcial Therapy Plan General Plan: (5-6x/week) Current Treatment Recommendations: Strengthening, ROM, Balance training, Functional mobility training, Transfer training, Endurance training, Gait training, Stair training, Neuromuscular re-education, Home exercise program, Safety education & training, Patient/Caregiver education & training, Equipment evaluation, education, & procurement, Positioning, Therapeutic activities Safety Devices Type of Devices: Call light within reach, Gait belt, Patient at risk for falls, Left in chair, Nurse notified Restraints Restraints Initially in Place: No Restrictions Restrictions/Precautions Restrictions/Precautions: Surgical Protocols, Fall Risk, General Precautions, Contact Precautions, Up as Tolerated Required Braces or Orthoses?: No Subjective General Chart Reviewed: Yes Patient assessed for rehabilitation services?: Yes Response To Previous Treatment: Patient with no complaints from previous session. Family / Caregiver Present: Yes () Follows Commands: Within Functional Limits General Comment Comments: Pt returned to seated in chair at end of session with call light in reach and present. Subjective Subjective: Pt and RN agreeable to PT this afternoon. Pt seated in chair upon arrival with no c/o pain. Pt pleasant and cooperative throughout session. Cognition Orientation Overall Orientation Status: Within Functional Limits Cognition Overall Cognitive Status: WFL Objective Bed mobility Supine to Sit: Unable to assess Sit to Supine: Unable to assess Scooting: Unable to assess Bed Mobility Comments: Pt up in chair upon entry/exit this date. Transfers Sit to Stand: Minimal Assistance Stand to Sit: Minimal Assistance Comment: RW used for transfers, required Rebekah to stand from low bedside chair. Performed transfers x2 from chair. Ambulation Surface: Level tile Device: Rolling Walker Assistance: Minimal assistance Quality of Gait: very small steps, tremors BU/BLE, unsteady Gait Deviations: Slow Reyna;Increased ELSA;Decreased step length;Decreased step height Distance: 16ft x2 Comments: Pt ambulated with a slow cautious gait, no true LOB but very unsteady during ambulation. More Ambulation?: No Stairs/Curb Stairs?: No Balance Posture: Fair Sitting - Static: Good Sitting - Dynamic: Good Standing - Static: Good Standing - Dynamic: Fair;- Comments: RW used for standing balance. Exercise Treatment: Seated LE exercise program: Long Arc Quads, hip abduction/adduction, heel/toe raises, and marches. Reps: x10 BLE Comments: Pt performed while seated in chair. AM-PAC Score AM-PAC Inpatient Mobility Raw Score : 16 (06/01/221611) AM-PAC Inpatient T-Scale Score : 40.78 (06/01/221611) Mobility Inpatient CMS 0-100% Score: 54.16 (06/01/221611) Mobility Inpatient CMS G-Code Modifier : CK (06/01/221611) Goals Short Term Goals Time Frame for Short Term Goals: 12 visits Short Term Goal 1: independent bed mobility Short Term Goal 2: independent transfers Short Term Goal 3: independent gait with appropriate device vs none x 100' Short Term Goal 4: stair ambulation x 10 steps with 1 HR and CG+1 Short Term Goal 5: pt independent with pursed lip breathing to keep RR <24 Patient Goals Patient Goals : get better, go home Education Patient Education Education Given To: Patient Education Provided: Role of Therapy;Plan of Care;Home Exercise Program;Precautions;Transfer Training;Fall Prevention Strategies Education Method: Verbal;Demonstration Barriers to Learning: None Education Outcome: Demonstrated understanding;Verbalized understanding Therapy Time Individual Concurrent Group Co-treatment Time In 1536 Time Out 1605 Minutes 29 Timed Code Treatment Minutes: 25 Minutes Amanda Aguilera PTA * Rosales Singh MD - 06/01/2022 4:18 PM EST Images from the original note were not included. [facility] Office: [phone] Chris Osman DO, Terrence Johns DO, Stefani Augustin DO, Jaspreet Mosley DO, Surekha Batista MD, Adrienne Means MD, Rosales Singh MD, Caitlyn Benz MD, Abdoul Camargo MD, Cathy Farooq MD, Chepe Cordova DO, Love Hess MD, Deja Guevara DO, Arpil Girard MD, Arvin Maya MD, Jessica Osman DO, Shima Watson MD, Raphael Connor MD, Jerome Simon DO, Yoselyn Thakkar MD, Codi Self MD, Gilda Sousa MD, Vikki Adorno MD, Jarocho Real DO, Krishan Vogt MD, Radha William MD, Shaunna Freitas CNP, Prabha Hauser CNP, Shirlene Dacosta CNP, Favian Ji CNP, Yesenia Espino, TEJINDER, Ema Mason, KARINA, Calista Mendez, HOUSE MOVING SUPERVISOR, Gunjan Ruiz, HOUSE MOVING SUPERVISOR, Sharon Barry, HOUSE MOVING SUPERVISOR, Sri Weiner, HOUSE MOVING SUPERVISOR, Gillian Valles, PA-C, Carleen Paiz, SOCIAL WORK FACULTY MEMBERCatie CNP, Chelsea Kulkarni CNP [facility] Daily Progress Note Admit Date: 05/28/2022 Bed/Room No. Admitting Physician : Rosales Singh MD Code Status :Full Code Hospital Day: LOS: 4 days Chief Complaint: Tremors Kidney failure Kidney stones Principal Problem: DAISY (acute kidney injury) ([facility]) Active Problems: ARF (acute renal failure) (HCC) Chronic kidney disease Type 2 diabetes mellitus with stage 3a chronic kidney disease (HCC) Hyperlipidemia Primary hypertension Urinary tract obstruction by kidney stone Hydronephrosis of left kidney Atrophy of right kidney Left ureteral stone Resolved Problems: * No resolved hospital problems. * Subjective : Interval History/Significant events : 06/01/22 Patient continues to have interventional tremors. He remains afebrile. Patient is breathing on roomair. He is in sinus rhythm. He is alert, oriented. Patient does not have any focal weakness. Urine output is high and had 1985 in last 24 hours. Patient IV fluids. Vitals - Stable afebrile Labs - creatinine improving 7.05 -->> 3.07 >> 2.52. Nursing notes , Consults notes reviewed. Overnight events and updates discussed with Nursing staff . Background History: Steven Walden is 62 y.o. male Who was admitted to the hospital on 05/28/2022 for treatment of DAISY (acute kidney injury) ([facility]). Patient was transferred from [facility] to [facility] where he presented with generalizedtremors , weakness and inability to walk. He was noted to have Acute renal failure with Creatinine of 8. CT abdomen plevis showed left nephrolithiasis, atrophic right kidney, acute kidney injury. Patient has underlying history of diabetes mellitus, CKD stage III, hypertension, hyperlipidemia. Patient has cystoscopy with stent placement. Creatinine is improving. He has underlying severe depression , Unemployed for many years , SHADE on CPAP, morbid Obesity. PMH: 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, neuropathy and CKD stage 3 Gout Hyperlipidemia Hypertension 1999 Major depressive disorder Morbid obesity (HCC) Neuropathy SHADE (obstructive sleep apnea) 2002 Peptic ulcer disease 2018 Duodenal Ulcer Allergies: No Known Allergies Medications : insulin regular human, 100 Units, SubCUTAneous, TID WC cephALEXin, 500 mg, Oral, 2 times per day brexpiprazole, 2 mg, Oral, Daily venlafaxine, 150 mg, Oral, Daily amLODIPine, 10 mg, Oral, Daily atorvastatin, 20 mg, Oral, Nightly budesonide-formoterol, 2 puff, Inhalation, BID lamoTRIgine, 200 mg, Oral, Daily [Held by provider] lisinopril, 20 mg, Oral, Daily metoprolol tartrate, 50 mg, Oral, BID mirtazapine, 30 mg, Oral, Nightly insulin lispro, 0-16 Units, SubCUTAneous, TID WC insulin lispro, 0-4 Units, SubCUTAneous, Nightly vitamin D, 50,000 Units, Oral, Weekly pantoprazole, 40 mg, Oral, QAM AC sodium chloride flush, 5-40 mL, IntraVENous, 2 times per day heparin (porcine), 5,000 Units, SubCUTAneous, 3 times per day dextrose, 25 g, IntraVENous, Once tamsulosin, 0.4 mg, Oral, Daily sodium chloride flush, 5-40 mL, IntraVENous, 2 times per day Review of Systems Review of Systems Constitutional: Positive for appetite change and fatigue. Negative for activity change, fever and unexpected weight change. HENT: Negative for congestion, nosebleeds, rhinorrhea, sinus pressure, sneezing and voice change. Respiratory: Negative for cough, choking, chest tightness, shortness of breath and wheezing. Cardiovascular: Negative for chest pain, palpitations and leg swelling. Gastrointestinal: Negative for abdominal pain, constipation, diarrhea, nausea and vomiting. Genitourinary: Negative for difficulty urinating, dysuria, frequency, penile discharge and testicular pain. Musculoskeletal: Negative for back pain. Skin: Negative for rash. Neurological: Positive for tremors. Negative for dizziness, weakness, light- headedness and headaches. Hematological: Does not bruise/bleed easily. Psychiatric/Behavioral: Negative for agitation, behavioral problems, confusion, self-injury, sleep disturbance and suicidal ideas. Objective : Current Vitals : Temp: 97.9 F (36.6 C), Heart Rate: 72, Resp: 21, BP: (!) 147/108, SpO2: 95 % Last 24 Hrs Vitals Patient Vitals for the past 24 hrs: BP Temp Temp src Pulse Resp SpO2 Weight 06/01/22 1322 (!) 147/108 97.9 F (36.6 C) Axillary 72 21 -- -- 06/01/22 0856 133/80 97.7 F (36.5 C) Axillary 64 13 95 % -- 06/01/22 0800 -- -- -- 63 -- -- -- 06/01/22 0428 121/72 98.2 F (36.8 C) Axillary 61 14 94 % (!) 364 lb 10.3 oz (165.4 kg) 06/01/22 0404 (!) 118/99 98.2 F (36.8 C) Axillary -- 19 95 % -- 06/01/22 0027 (!) 126/99 97.5 F (36.4 C) Axillary 62 15 95 % -- 05/31/222014 136/84 98 F (36.7 C) Axillary 68 17 96 % -- 05/31/221999 -- -- -- 69 -- -- -- 05/31/22 1730 (!) 142/85 -- -- 74 14 93 % -- Intake / output 05/30 190 - 06/01 0700 In: 3121.4 [P.O.:1200; I.V.:1771.6] Out: 4485 [Urine:4485] Physical Exam: Physical Exam Vitals and nursing note reviewed. Constitutional: General: He is not in acute distress. Appearance: He is morbidly obese. He is ill-appearing. He is not diaphoretic. HENT: Head: Normocephalic and atraumatic. Nose: Right Sinus: No maxillary sinus tenderness or frontal sinus tenderness. Left Sinus: No maxillary sinus tenderness or frontal sinus tenderness. Mouth/Throat: Pharynx: No oropharyngeal exudate. Eyes: General: No scleral icterus. Conjunctiva/sclera: Conjunctivae normal. Pupils: Pupils are equal, round, and reactive to light. Neck: Thyroid: No thyromegaly. Vascular: No JVD. Cardiovascular: Rate and Rhythm: Normal rate and regular rhythm. Pulses: Dorsalis pedis pulses are 2+ on the right side and 2+ on the left side. Heart sounds: Normal heart sounds. No murmur heard. Pulmonary: Effort: Pulmonary effort is normal. Breath sounds: Normal breath sounds. No wheezing or rales. Abdominal: Palpations: Abdomen is soft. There is no mass. Tenderness: There is no abdominal tenderness. Musculoskeletal: Cervical back: Full passive range of motion without pain and neck supple. Lymphadenopathy: Head: Right side of head: No submandibular adenopathy. Left side of head: No submandibular adenopathy. Cervical: No cervical adenopathy. Skin: General: Skin is warm. Neurological: Mental Status: He is alert and oriented to person, place, and time. Motor: Tremor (intentional) present. Psychiatric: Behavior: Behavior is cooperative. Laboratory findings: Recent Labs 05/30/22 0308 05/31/22 0552 06/01/22 0508 WBC 8.3 7.9 9.8 HGB 13.2 12.5* 12.5* HCT 41.1 38.1* 38.3* PLT 206 227 334 Recent Labs 05/30/22 0308 05/30/22 0945 05/30/22 1501 05/31/22 0552 06/01/22 0508 NA 143 < > 141 140 142 K 4.3 < > 3.9 3.8 3.6* CL 109* < > 107 105 108* CO2 20 < > 21 21 22 GLUCOSE 189* -- -- 183* 74 BUN 71* -- -- 54* 40* CREATININE 4.53* -- -- 3.07* 2.52* MG 1.9 -- -- -- -- CALCIUM 8.6 -- -- 8.4* 8.6 < > = values in this interval not displayed. Recent Labs 05/30/22 0308 05/30/22 0945 PROT 6.6 -- LABALBU 3.0* -- LABA1C -- 7.2* AST 24 -- ALT 19 -- ALKPHOS 97 -- BILITOT 0.3 -- Specific Grabill, UA Date Value Ref Range Status 05/28/2022 1.011 1.005 - 1.030 Final Protein, UA Date Value Ref Range Status 05/28/2022 2+ (A) NEGATIVE Final RBC, UA Date Value Ref Range Status 05/28/2022 TOO NUMEROUS TO COUNT 0 - 4 /HPF Final Comment: Reference range defined for non-centrifuged specimen. Nitrite, Urine Date Value Ref Range Status 05/28/2022 NEGATIVE NEGATIVE Final WBC, UA Date Value Ref Range Status 05/28/2022 10 TO 20 0 - 5 /HPF Final Leukocyte Esterase, Urine Date Value Ref Range Status 05/28/2022 TRACE (A) NEGATIVE Final Imaging / Clinical Data :- XR CHEST PORTABLE Result Date: 05/29/2022 1. Mild cardiomegaly. Mild pulmonary vascular congestion. 2. Old granulomatous disease. 3. No confluent airspace consolidation. US RETROPERITONEAL COMPLETE Result Date: 05/28/2022 No stone, mass or hydronephrosis within the kidneys. Kidneys have normal size. Clinical Course : gradually improving Assessment and Plan : Left ureteral stone s/p Cystoscopy, Coude catheter insertion and left ureteral stent placement -continue Flomax, Zosyn, keep Carballo in place for now until kidney function at [facility]. Acute kidney injury superimposed on chronic kidney disease stage III -treated with bicarb infusion.Continue IVF.. Monitor creatinine . Keep Carballo . Lisinopril and aldactone on hold . Type 2 diabetes mellitus - insulin dependent - on U500 . Resume insulin. Essential hypertension Major depression - on Remeron, effexor, Rexulti ( dose adjustment for kidney function given neurologic side effects, change dose to home dose when kidney function improves ) Dyslipidemia Type 2 diabetes mellitus. Patient on U-500. Use 100 units 3 times daily with meals. Generalized debility and tremors from renal failure. PMNR consult. PT OT Continue to monitor vitals , Intake / output , Cell count , HGB , Kidney function, oxygenation as indicated . Plan and updates discussed with patient , answers explained to satisfaction. Discussed with and daughter ar bed side Plan discussed with zoo caretaker (Please note that portions of this note were completed with a voice recognition program. Efforts were made to edit the dictations but occasionally words are mis-transcribed.) Rosales Singh MD 06/01/2022 * Desean Kitchen RN - 06/01/2022 1:00 AM EST Patient was hypoglycemic treated with the bolus doses of 10%Dextrose ,rechecked blood sugar and wasstill hypoglycemic notified organizational development consultant CAFE HELPER Carleen Paiz,as per the order,10%Dextrose 100ml/hr started. * Meseret Ballard MD - 05/31/2022 11:13 AM EST Renal Progress Note Patient : Steven Walden; 62 y.o. Location: Attending: Rosales Singh MD Admit Date: 05/28/2022 Hospital Day: 3 Subjective: Following for DAISY secondary to obstructive uropathy s/p left ureteral stent, ATN/SIRS from complicated UTI. Creatinine peaked to 8.0. He does have CKD III with unknown baseline. Creatinine this morning down to 3.07 mg/dl from yesterday's 4.53, from 5.79. Electrolytes within normal limits. He has orders for normal saline at 100 mL an hour. He is not requiring any oxygen. He has no chest pain or shortness of breath. Last bowel movement a couple days ago. No swelling of the extremities. No belly pain. Tolerated breakfast today well. Outpatient Medications: Medications Prior to Admission: venlafaxine (EFFEXOR XR) 75 MG extended release capsule, Take 225 mg by mouth daily brexpiprazole (REXULTI) 4 MG TABS tablet, Take 4 mg by mouth daily mirtazapine (REMERON) 30 MG tablet, Take 30 mg by mouth nightly lamoTRIgine (LAMICTAL) 200 MG tablet, Take 200 mg by mouth daily gabapentin (NEURONTIN) 300 MG capsule, Take 300 mg by mouth 2 times daily. omeprazole (PRILOSEC) 40 MG delayed release capsule, Take 40 mg by mouth daily atorvastatin (LIPITOR) 20 MG tablet, Take 20 mg by mouth nightly allopurinol (ZYLOPRIM) 100 MG tablet, Take 100 mg by mouth daily amLODIPine (NORVASC) 10 MG tablet, Take 10 mg by mouth daily metoprolol tartrate (LOPRESSOR) 50 MG tablet, Take 50 mg by mouth 2 times daily spironolactone (ALDACTONE) 25 MG tablet, Take 25 mg by mouth daily insulin regular human (HUMULIN R) 500 UNIT/ML concentrated injection vial, Inject 200 Units into the skin 3 times daily (with meals) Dulaglutide 0.75 MG/0.5ML SOPN, Inject 0.75 mg into the skin once a week Mondays budesonide-formoterol (SYMBICORT) 80-4.5 MCG/ACT AERO, Inhale 2 puffs into the lungs 2 times daily vitamin D (ERGOCALCIFEROL) 1.25 MG (60012 UT) CAPS capsule, Take 50,000 Units by mouth once a week Tuesday promethazine (PHENERGAN) 12.5 MG tablet, Take 12.5 mg by mouth every 6 hours as needed for Nausea ALPRAZolam (XANAX) 0.5 MG tablet, Take 0.5 mg by mouth nightly as needed for Sleep. albuterol sulfate HFA (VENTOLIN HFA) 108 (90 Base) MCG/ACT inhaler, Inhale 2 puffs into the lungs every 6 hours as needed for Wheezing lisinopril (PRINIVIL;ZESTRIL) 20 MG tablet, Take 20 mg by mouth daily Current Medications: Scheduled Meds: insulin regular human 200 Units SubCUTAneous TID WC cephALEXin 500 mg Oral 2 times per day [START ON 06/01/2022] brexpiprazole 2 mg Oral Daily [START ON 06/01/2022] venlafaxine 150 mg Oral Daily amLODIPine 10 mg Oral Daily atorvastatin 20 mg Oral Nightly budesonide-formoterol 2 puff Inhalation BID lamoTRIgine 200 mg Oral Daily [Held by provider] lisinopril 20 mg Oral Daily metoprolol tartrate 50 mg Oral BID mirtazapine 30 mg Oral Nightly insulin lispro 0-16 Units SubCUTAneous TID WC insulin lispro 0-4 Units SubCUTAneous Nightly vitamin D 50,000 Units Oral Weekly pantoprazole 40 mg Oral QAM AC sodium chloride flush 5-40 mL IntraVENous 2 times per day heparin (porcine) 5,000 Units SubCUTAneous 3 times per day insulin regular 10 Units IntraVENous Once dextrose 25 g IntraVENous Once tamsulosin 0.4 mg Oral Daily sodium chloride flush 5-40 mL IntraVENous 2 times per day Continuous Infusions: sodium chloride dextrose sodium chloride sodium chloride PRN Meds: HYDROcodone 5 mg - acetaminophen, albuterol sulfate HFA, ALPRAZolam, glucose, dextrose bolus OR dextrose bolus, glucagon (rDNA), dextrose, sodium chloride flush, sodium chloride, ondansetron OR ondansetron, acetaminophen OR acetaminophen, hyoscyamine, sodium chloride flush, sodium chloride Input/Output: I/O last 3 completed shifts: In: 4174.7 [P.O.:640; I.V.:3198.1; IV Piggyback:336.7] Out: 5400 [Urine:5400]. Patient Vitals for the past 96 hrs (Last 3 readings): Weight 05/31/22 0400 (!) 361 lb 15.9 oz (164.2 kg) 05/30/22 0514 (!) 359 lb 2.1 oz (162.9 kg) 05/29/22 0600 (!) 364 lb 10.3 oz (165.4 kg) Vital Signs: Temperature: Temp: 97.9 F (36.6 C) TMax: Temp (24hrs), Av F (36.7 C), Min:97.6 F (36.4 C), Max:98.2 F (36.8 C) Respirations: Resp: 17 Pulse: Heart Rate: 63 BP: BP: 121/71 BP Range: Systolic (24hrs), Av , Min:118 , Max:126 Diastolic (24hrs), Av, Min:62, Max:92 Physical Examination: General: AAO x 3, speaking in full sentences, no accessory muscle use. HEENT: Atraumatic, normocephalic, moist mucosa. Eyes: Normal conjunctiva, no icterus Neck: No JVD, midline trachea no accessory muscle use Chest: Normal bilateral air entry and clear to auscultation bilaterally and symmetrically without any wheezes or rales or rhonchi Cardiac: Regular rate and rhythm with positive S1 and S2 and no rubs or gallops Abdomen: Obese and soft and not tender and not distended with active bowel sounds Neuro: AAO x 3, No FND. SKIN: No rashes, good skin turgor. Extremities: No edema, palpable peripheral pulses, no calf tenderness. Labs: Recent Labs 05/28/22 1659 05/30/22 0308 05/31/22 0552 WBC 7.2 8.3 7.9 RBC 4.73 4.32 4.08* HGB 14.6 13.2 12.5* HCT 48.9 41.1 38.1* MCV 103.4* 95.1 93.4 MCH 30.9 30.6 30.6 MCHC 29.9 32.1 32.8 RDW 14.4 14.2 14.2 PLT 118* 206 227 MPV 9.8 10.2 10.2 BMP: Recent Labs 05/29/22 0701 05/29/22 2046 05/30/22 0308 05/30/22 0945 05/30/22 1501 05/31/22 0552 NA 139 < > 143 143 141 140 K 4.6 < > 4.3 3.6* 3.9 3.8 CL 105 < > 109* 107 107 105 CO2 14* < > 20 20 21 21 BUN 78* -- 71* -- -- 54* CREATININE 5.79* -- 4.53* -- -- 3.07* GLUCOSE 187* -- 189* -- -- 183* CALCIUM 9.1 -- 8.6 -- -- 8.4* < > = values in this interval not displayed. Phosphorus: Recent Labs 05/29/22 0701 PHOS 5.6* Magnesium: Recent Labs 05/28/22 1655 05/29/22 0701 05/30/22 0308 MG 1.9 1.8 1.9 Albumin: Recent Labs 05/28/22 1655 05/29/22 0701 05/30/22 0308 LABALBU 2.8* 3.1* 3.0* SPEP: Lab Results Component Value Date/Time PROT 6.6 05/30/2022 03:08 AM ALBCAL 3.4 05/28/2022 08:45 PM ALBPCT 51 05/28/2022 08:45 PM LABALPH 0.3 05/28/2022 08:45 PM LABALPH 1.1 05/28/2022 08:45 PM A1PCT 4 05/28/2022 08:45 PM A2PCT 16 05/28/2022 08:45 PM LABBETA 0.9 05/28/2022 08:45 PM BETAPCT 14 05/28/2022 08:45 PM GAMGLOB 1.0 05/28/2022 08:45 PM GGPCT 15 05/28/2022 08:45 PM PATH PENDING 05/28/2022 08:45 PM PATH PENDING 05/28/2022 08:45 PM C3: Lab Results Component Value Date/Time C3 185 05/28/2022 08:45 PM C4: Lab Results Component Value Date/Time C4 62 05/28/2022 08:45 PM Urinalysis/Chemistries: Lab Results Component Value Date/Time NITRU NEGATIVE 05/28/2022 06:21 PM COLORU Yellow 05/28/2022 06:21 PM PHUR 5.5 05/28/2022 06:21 PM WBCUA 10 TO 20 05/28/2022 06:21 PM RBCUA TOO NUMEROUS TO COUNT 05/28/2022 06:21 PM SPECGRAV 1.011 05/28/2022 06:21 PM LEUKOCYTESUR TRACE 05/28/2022 06:21 PM UROBILINOGEN Normal 05/28/2022 06:21 PM BILIRUBINUR NEGATIVE 05/28/2022 06:21 PM GLUCOSEU NEGATIVE 05/28/2022 06:21 PM KETUA NEGATIVE 05/28/2022 06:21 PM Urine Sodium: Lab Results Component Value Date/Time KYLAH 61 05/28/2022 06:21 PM Urine Osmolarity: Lab Results Component Value Date/Time OSMOU 317 05/28/2022 06:21 PM Urine Creatinine: Lab Results Component Value Date/Time LABCREA 82.7 05/28/2022 06:21 PM Radiology: CXR: Assessment: 1. Acute Kidney Injury: Secondary to obstructive uropathy from left ureteral obstruction, left nephrolithiasis in a patient with an atrophic right kidney on imaging studies. Additionally, ischemic ATN from systemic inflammatory response syndrome related to complicated UTI. Creatinine peaked to 8.0 and is down to 3.07 today with normal electrolytes. 2. Chronic kidney disease stage III based on history baseline creatinine not known has followed up with nephrology in the past, last seen 6 years ago. Baseline unknown. 3. Left hydronephrosis s/p cystoscopy and left ureter stent. Continues to have carballo catheter in place per urology. 4. Obstructive uropathy and a solitary functioning left kidney secondary to left ureteral obstruction from left nephrolithiasis appears to be acute in nature given the sudden onset of symptoms over aperiod of 2 days, status post cystoscopy left ureteral stent placement. Also found to have severe phimosis and urethral obstruction requiring urethral dilatation 5. Hyperkalemia from acute kidney injury and hemolyzed specimen and Aldactone use and extracellularshift from metabolic acidosis, potassium was 5.6 on presentation 6. Diabetes mellitus type 2 7. Complicated UTI 8. Mild anemia of chronic disease with hemoglobin 12.5 today Plan: 1. Discontinue maintenance IV fluids 2. Patient is stable for discharge from a nephrology standpoint 3. Carballo management per urology 4. Patient should be seen in the [facility] with Dr. Triplett within the next 3 to 4 weeks. Clinic number is [phone] 5. Expect continued renal recovery 6. If internal medicine could order weekly basic metabolic panel for the next 4 weeks with results to Dr. Triplett, nephrology would appreciate it Meseret Ballard MD Nephrology Attending Physician [facility] 05/31/2022 * Kevin Myles MD - 05/31/2022 7:51 AM EST Images from the original note were not included. Kevin Myles MD FACS Urology Progress Note Subjective: Diet: No acute events overnight Continues to improve Denies flank pain Denies nausea, vomiting, fevers and chills Output- 3500 cc Patient Vitals for the past 24 hrs: BP Temp Temp src Pulse Resp SpO2 Weight 05/31/22 0400 123/69 97.9 F (36.6 C) Axillary 67 12 -- (!) 361 lb 15.9 oz (164.2 kg) 05/31/22 0000 (!) 126/92 98 F (36.7 C) Oral 69 19 95 % -- 05/30/221999 -- -- -- 78 -- -- -- 05/30/22 1945 121/75 97.6 F (36.4 C) Oral 74 20 94 % -- 05/30/22 1800 -- -- -- 70 19 94 % -- 05/30/22 1700 -- -- -- 70 20 92 % -- 05/30/22 1618 118/77 98.1 F (36.7 C) Oral 67 21 -- -- 05/30/22 1600 -- -- -- 66 20 93 % -- 05/30/22 1500 -- -- -- 77 16 92 % -- 05/30/22 1400 -- -- -- 63 16 93 % -- 05/30/22 1300 -- -- -- 72 26 92 % -- 05/30/22 1224 120/62 98.2 F (36.8 C) Oral 63 15 92 % -- 05/30/22 1200 -- -- -- -- 12 -- -- 05/30/22 1100 -- -- -- 60 15 92 % -- 05/30/22 1000 -- -- -- 62 24 93 % -- 05/30/22 0900 -- -- -- 60 20 95 % -- 05/30/22 0825 110/69 98.6 F (37 C) Oral 63 21 94 % -- 05/30/22 0800 -- -- -- 55 15 94 % -- Intake/Output Summary (Last 24 hours) at 05/31/2022 0751 Last data filed at 05/31/2022 0600 Gross per 24 hour Intake 1870.31 ml Output 3500 ml Net -1629.69 ml Recent Labs 05/28/22 1659 05/30/22 0308 05/31/22 0552 WBC 7.2 8.3 7.9 HGB 14.6 13.2 12.5* HCT 48.9 41.1 38.1* MCV 103.4* 95.1 93.4 PLT 118* 206 227 Recent Labs 05/29/22 0701 05/29/22 2046 05/30/22 0308 05/30/22 0945 05/30/22 1501 05/31/22 0552 NA 139 < > 143 143 141 140 K 4.6 < > 4.3 3.6* 3.9 3.8 CL 105 < > 109* 107 107 105 CO2 14* < > 20 20 21 21 PHOS 5.6* -- -- -- -- -- BUN 78* -- 71* -- -- 54* CREATININE 5.79* -- 4.53* -- -- 3.07* < > = values in this interval not displayed. Recent Labs 05/28/22 1821 COLORU Yellow PHUR 5.5 WBCUA 10 TO 20 RBCUA TOO NUMEROUS TO COUNT SPECGRAV 1.011 LEUKOCYTESUR TRACE* UROBILINOGEN Normal BILIRUBINUR NEGATIVE Additional Lab/culture results: Physical Exam: AO X 3 Neck: Supple Chest: bilateral symmetrical chest rise/ Non labored breathing Circulatory: Peripheries warm , well perfused P/A: soft, nondistended Carballo catheter with clear yellow urine Interval Imaging Findings: None Impression: Steven Walden is a obstructing left ureteral stone and a solitary kidney, s/p cystoscopy, left ureteral stent insertion and ureteral dilatation with difficult Carballo catheter insertion on 05/28/2022 Acute kidney injury on chronic kidney disease stage III Plan: Diet : Okay for regular diet Supportive care per primary team Continue broad-spectrum antibiotics for now, follow-up cultures. , plan for discharge on 10 days ofculture sensitive oral antibiotics Urine output 3600 cc. Please monitor for postobstructive diuresis Ambulation / IS 10 times per hour AM labs : Creatinine trending down, 3.07 from 4.5 Continue to trend creatinine and maintain Carballo catheter for now. 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 OK to remove catheter when creat nadirs. Urology will sign off and will arrange for outpatient Rx of his stone in 1.5 to 2 weeks. Mirela Babb MD 7:51 AM 05/31/2022 I have reviewed the history above and agree. I have reviewed all laboratory findings and imaging reports/films. I agree with the plan as noted above. * Rosales Singh MD - 05/31/2022 7:45 AM EST Images from the original note were not included. [facility] Office: [phone] Chris Osman DO, Terrence Johns DO, Stefani Augustin DO, Jaspreet Mosley DO, Surekha Batista MD, Adrienne Means MD, Rosales Singh MD, Caitlyn Benz MD, Abdoul Camargo MD, Cathy Farooq MD, Chepe Cordova DO, Love Hess MD, Deja Guevara DO, Apirl Girard MD, Arvin Maya MD, Jessica Osman DO, Shima Watson MD, Raphael Connor MD, Jerome Simon, DO, Yoselyn Thakkar MD, Codi Self MD, Gilda Sousa MD, Vikki Adorno MD, Jarocho Real DO, Krishan Vogt MD, Radha William MD, Shaunna Freitas, HOUSE MOVING SUPERVISOR, Prabha Hauser, HOUSE MOVING SUPERVISOR, Shirlene Dacosta, HOUSE MOVING SUPERVISOR, Favian Ji, HOUSE MOVING SUPERVISOR, Yesenia Espino, TEJINDER, Ema Mason, HOUSE MOVING SUPERVISOR, Calista Mendez, HOUSE MOVING SUPERVISOR, Gunjan Ruiz, HOUSE MOVING SUPERVISOR, Sharon Barry, HOUSE MOVING SUPERVISOR, Sri Weiner, HOUSE MOVING SUPERVISOR, Gillian Valles PA-C, Carleen Paiz, SARA, Catie Cheema, HOUSE MOVING SUPERVISOR, Chelsea Kulkarni, HOUSE MOVING SUPERVISOR [facility] Daily Progress Note Admit Date: 05/28/2022 Bed/Room No. Admitting Physician : Rosales Singh MD Code Status :Full Code Hospital Day: LOS: 3 days Chief Complaint: Tremors Kidney failure Kidney stones Principal Problem: DAISY (acute kidney injury) (HCC) Active Problems: ARF (acute renal failure) (HCC) Chronic kidney disease Type 2 diabetes mellitus with stage 3a chronic kidney disease (HCC) Hyperlipidemia Primary hypertension Urinary tract obstruction by kidney stone Hydronephrosis of left kidney Atrophy of right kidney Left ureteral stone Resolved Problems: * No resolved hospital problems. * Subjective : Interval History/Significant events : 05/31/22 Patient continues to have tremors and fatigue . Tremors have improved and are only intentional now,without any resting tremors. Patient denies any dyspnea. He has low appetite Urine output is high and had 3500 ml in last 24 Hrs Vitals - Stable afebrile Labs - creatinine improving 7.05 -->> 3.07 Nursing notes , Consults notes reviewed. Overnight events and updates discussed with Nursing staff . Background History: Steven aWlden is 62 y.o. male Who was admitted to the hospital on 05/28/2022 for treatment of DAISY (acute kidney injury) (HCC). Patient was transferred from [facility] to [facility] where he presented with generalizedtremors , weakness and inability to walk. He was noted to have Acute renal failure with Creatinine of 8. CT abdomen plevis showed left nephrolithiasis, atrophic right kidney, acute kidney injury. Patient has underlying history of diabetes mellitus, CKD stage III, hypertension, hyperlipidemia. Patient has cystoscopy with stent placement. Creatinine is improving. He has underlying severe depression , Unemployed for many years , SHADE on CPAP, morbid Obesity. PMH: Past Medical History: Diagnosis Date Anxiety Chronic kidney disease Congenital heart defect Diabetes mellitus (HCC) Gout Hyperlipidemia Hypertension Major depressive disorder Neuropathy Peptic ulcer disease Allergies: No Known Allergies Medications : amLODIPine, 10 mg, Oral, Daily atorvastatin, 20 mg, Oral, Nightly brexpiprazole, 4 mg, Oral, Daily budesonide-formoterol, 2 puff, Inhalation, BID lamoTRIgine, 200 mg, Oral, Daily [Held by provider] lisinopril, 20 mg, Oral, Daily metoprolol tartrate, 50 mg, Oral, BID mirtazapine, 30 mg, Oral, Nightly venlafaxine, 225 mg, Oral, Daily insulin lispro, 0-16 Units, SubCUTAneous, TID WC insulin lispro, 0-4 Units, SubCUTAneous, Nightly vitamin D, 50,000 Units, Oral, Weekly pantoprazole, 40 mg, Oral, QAM AC sodium chloride flush, 5-40 mL, IntraVENous, 2 times per day piperacillin-tazobactam, 3,375 mg, IntraVENous, Q8H heparin (porcine), 5,000 Units, SubCUTAneous, 3 times per day insulin regular, 10 Units, IntraVENous, Once dextrose, 25 g, IntraVENous, Once tamsulosin, 0.4 mg, Oral, Daily sodium chloride flush, 5-40 mL, IntraVENous, 2 times per day Review of Systems Review of Systems Constitutional: Positive for appetite change and fatigue. Negative for activity change, fever and unexpected weight change. HENT: Negative for congestion, nosebleeds, rhinorrhea, sinus pressure, sneezing and voice change. Respiratory: Negative for cough, choking, chest tightness, shortness of breath and wheezing. Cardiovascular: Negative for chest pain, palpitations and leg swelling. Gastrointestinal: Negative for abdominal pain, constipation, diarrhea, nausea and vomiting. Genitourinary: Negative for difficulty urinating, dysuria, frequency, penile discharge and testicular pain. Musculoskeletal: Negative for back pain. Skin: Negative for rash. Neurological: Positive for tremors. Negative for dizziness, weakness, light- headedness and headaches. Hematological: Does not bruise/bleed easily. Psychiatric/Behavioral: Negative for agitation, behavioral problems, confusion, self-injury, sleep disturbance and suicidal ideas. Objective : Current Vitals : Temp: 97.9 F (36.6 C), Heart Rate: 67, Resp: 12, BP: 123/69, SpO2: 95 % Last 24 Hrs Vitals Patient Vitals for the past 24 hrs: BP Temp Temp src Pulse Resp SpO2 Weight 05/31/22 0400 123/69 97.9 F (36.6 C) Axillary 67 12 -- (!) 361 lb 15.9 oz (164.2 kg) 05/31/22 0000 (!) 126/92 98 F (36.7 C) Oral 69 19 95 % -- 05/30/221999 -- -- -- 78 -- -- -- 05/30/22 1945 121/75 97.6 F (36.4 C) Oral 74 20 94 % -- 05/30/22 1800 -- -- -- 70 19 94 % -- 05/30/22 1700 -- -- -- 70 20 92 % -- 05/30/22 1618 118/77 98.1 F (36.7 C) Oral 67 21 -- -- 05/30/22 1600 -- -- -- 66 20 93 % -- 05/30/22 1500 -- -- -- 77 16 92 % -- 05/30/22 1400 -- -- -- 63 16 93 % -- 05/30/22 1300 -- -- -- 72 26 92 % -- 05/30/22 1224 120/62 98.2 F (36.8 C) Oral 63 15 92 % -- 05/30/22 1200 -- -- -- -- 12 -- -- 05/30/22 1100 -- -- -- 60 15 92 % -- 05/30/22 1000 -- -- -- 62 24 93 % -- 05/30/22 0900 -- -- -- 60 20 95 % -- 05/30/22 0825 110/69 98.6 F (37 C) Oral 63 21 94 % -- 05/30/22 0800 -- -- -- 55 15 94 % -- Intake / output 05/29 1901 - 05/31 0700 In: 4174.7 [P.O.:640; I.V.:3198.1] Out: 5400 [Urine:5400] Physical Exam: Physical Exam Vitals and nursing note reviewed. Constitutional: General: He is not in acute distress. Appearance: He is morbidly obese. He is ill-appearing. He is not diaphoretic. HENT: Head: Normocephalic and atraumatic. Nose: Right Sinus: No maxillary sinus tenderness or frontal sinus tenderness. Left Sinus: No maxillary sinus tenderness or frontal sinus tenderness. Mouth/Throat: Pharynx: No oropharyngeal exudate. Eyes: General: No scleral icterus. Conjunctiva/sclera: Conjunctivae normal. Pupils: Pupils are equal, round, and reactive to light. Neck: Thyroid: No thyromegaly. Vascular: No JVD. Cardiovascular: Rate and Rhythm: Normal rate and regular rhythm. Pulses: Dorsalis pedis pulses are 2+ on the right side and 2+ on the left side. Heart sounds: Normal heart sounds. No murmur heard. Pulmonary: Effort: Pulmonary effort is normal. Breath sounds: Normal breath sounds. No wheezing or rales. Abdominal: Palpations: Abdomen is soft. There is no mass. Tenderness: There is no abdominal tenderness. Musculoskeletal: Cervical back: Full passive range of motion without pain and neck supple. Lymphadenopathy: Head: Right side of head: No submandibular adenopathy. Left side of head: No submandibular adenopathy. Cervical: No cervical adenopathy. Skin: General: Skin is warm. Neurological: Mental Status: He is alert and oriented to person, place, and time. Motor: Tremor (intentional) present. Psychiatric: Behavior: Behavior is cooperative. Laboratory findings: Recent Labs 05/28/22 16505/28/22 16505/30/22 0308 05/31/22 0552 WBC -- 7.2 8.3 7.9 HGB -- 14.6 13.2 12.5* HCT -- 48.9 41.1 38.1* PLT -- 118* 206 227 INR 1.0 -- -- -- Recent Labs 05/28/22 16505/28/22202305/29/22 0701 05/29/22 2046 05/30/22 0308 05/30/22 0945 05/30/22 1501 05/31/22 0552 NA 131* -- 139 < > 143 143 141 140 K 5.6* < > 4.6 < > 4.3 3.6* 3.9 3.8 CL 103 -- 105 < > 109* 107 107 105 CO2 9* -- 14* < > 20 20 21 21 GLUCOSE 153* -- 187* -- 189* -- -- 183* BUN 85* -- 78* -- 71* -- -- 54* CREATININE 7.05* -- 5.79* -- 4.53* -- -- 3.07* MG 1.9 -- 1.8 -- 1.9 -- -- -- CALCIUM 9.0 -- 9.1 -- 8.6 -- -- 8.4* PHOS -- -- 5.6* -- -- -- -- -- < > = values in this interval not displayed. Recent Labs 05/28/22 1655 05/28/22 2045 05/29/22 0701 05/30/22 0308 05/30/22 0945 PROT 7.2 6.7 7.1 6.6 -- LABALBU 2.8* -- 3.1* 3.0* -- LABA1C -- -- -- -- 7.2* AST 44* -- 32 24 -- ALT 23 -- 19 -- ALKPHOS 107 -- 104 97 -- BILITOT 0.5 -- 0.4 0.3 -- Specific Grabill, UA Date Value Ref Range Status 05/28/2022 1.011 1.005 - 1.030 Final Protein, UA Date Value Ref Range Status 05/28/2022 2+ (A) NEGATIVE Final RBC, UA Date Value Ref Range Status 05/28/2022 TOO NUMEROUS TO COUNT 0 - 4 /HPF Final Comment: Reference range defined for non-centrifuged specimen. Nitrite, Urine Date Value Ref Range Status 05/28/2022 NEGATIVE NEGATIVE Final WBC, UA Date Value Ref Range Status 05/28/2022 10 TO 20 0 - 5 /HPF Final Leukocyte Esterase, Urine Date Value Ref Range Status 05/28/2022 TRACE (A) NEGATIVE Final Imaging / Clinical Data :- XR CHEST PORTABLE Result Date: 05/29/2022 1. Mild cardiomegaly. Mild pulmonary vascular congestion. 2. Old granulomatous disease. 3. No confluent airspace consolidation. US RETROPERITONEAL COMPLETE Result Date: 05/28/2022 No stone, mass or hydronephrosis within the kidneys. Kidneys have normal size. Clinical Course : gradually improving Assessment and Plan : Left ureteral stone s/p Cystoscopy, Coude catheter insertion and left ureteral stent placement -continue Flomax, Zosyn, keep Carballo in place for now until kidney function improves. Acute kidney injury superimposed on chronic kidney disease stage III -treated with bicarb infusion.Stop bicarb and start 0.9 % saline @ 100 ml per hr, has post obstructive Diuresis . Monitor creatinine . Keep Carballo . Lisinopril and aldactone on hold . Type 2 diabetes mellitus - insulin dependent - on U500 . Resume insulin. Essential hypertension Major depression - on Remeron, effexor, Rexulti ( dose adjustment for kidney function given neurologic side effects, change dose to home dose when kidney function improves ) Dyslipidemia PT OT Continue to monitor vitals , Intake / output , Cell count , HGB , Kidney function, oxygenation as indicated . Plan and updates discussed with patient , answers explained to satisfaction. Discussed with and daughter ar bed side Plan discussed with zoo caretaker (Please note that portions of this note were completed with a voice recognition program. Efforts were made to edit the dictations but occasionally words are mis-transcribed.) Rosales Singh MD 05/31/2022 * Kari Segura - 05/30/2022 12:34 PM EST SPIRITUAL CARE DEPARTMENT - [facility] – [place] PROGRESS NOTE Shift date: 05/30/2022 Shift day: Tuesday Shift # 1 Room # Name: Steven Walden Referral: Routine Visit Admit Date & Time: 05/28/2022 4:25 PM Assessment: Steven Walden is a 62 y.o. male in the hospital. Upon entering the room fiction and nonfiction prose writer observes the patient lying in bed in a dark room, appearing to be falling asleep. A visitor was bedside, reclined in a chair. The patient explained the day started hectic and they desired to rest and calm. Overseamer offered to return later or the next day. Intervention: Chain Maker Machine introduced self and title as bi tri operator Chain Maker Machine offered space for the patient to express feelings, needs, and concerns and provided a ministry presence. Outcome: Expressed gratitude. Plan: Chaplains will remain available to offer spiritual and emotional support as needed. 05/30/22 1233 Encounter Summary Service Provided For: Patient Referral/Consult From: [email or web address] Support System Family members Last Encounter 05/30/22 Complexity of Encounter Low Begin Time 1032 End Time 1035 Total Time Calculated 3 min Assessment/Intervention/Outcome Assessment Calm;Coping;Other (Comment) (Tired) Intervention Sustaining Presence/Ministry of presence Outcome Expressed Gratitude . Spiritual Care Department [facility] [phone] * Meseret Ballard MD - 05/30/2022 9:07 AM EST Renal Progress Note Patient : Steven Walden; 62 y.o. Location: Attending: Stefani Augustin DO Admit Date: 05/28/2022 Hospital Day: 2 Subjective: Following for DAISY secondary to obstructive uropathy s/p left ureteral stent, ATN/SIRS from complicated UTI. Creatinine peaked to 8.0. He does have CKD III with unknown baseline. Creatinine this morning down to 4.53, from 5.79. Potassium stable at 4.3, Bicarb 20 Urine output last 24 hours 3600. He is negative 5.7 liters. He remains on Bicarb drip 75meq in 0.45 at 100. He is weak but did work with PT yesterday. On nasal canula. Blood pressures stable Outpatient Medications: Medications Prior to Admission: venlafaxine (EFFEXOR XR) 75 MG extended release capsule, Take 225 mg by mouth daily brexpiprazole (REXULTI) 4 MG TABS tablet, Take 4 mg by mouth daily mirtazapine (REMERON) 30 MG tablet, Take 30 mg by mouth nightly lamoTRIgine (LAMICTAL) 200 MG tablet, Take 200 mg by mouth daily gabapentin (NEURONTIN) 300 MG capsule, Take 300 mg by mouth 2 times daily. omeprazole (PRILOSEC) 40 MG delayed release capsule, Take 40 mg by mouth daily atorvastatin (LIPITOR) 20 MG tablet, Take 20 mg by mouth nightly allopurinol (ZYLOPRIM) 100 MG tablet, Take 100 mg by mouth daily amLODIPine (NORVASC) 10 MG tablet, Take 10 mg by mouth daily metoprolol tartrate (LOPRESSOR) 50 MG tablet, Take 50 mg by mouth 2 times daily spironolactone (ALDACTONE) 25 MG tablet, Take 25 mg by mouth daily insulin regular human (HUMULIN R) 500 UNIT/ML concentrated injection vial, Inject 200 Units into the skin 3 times daily (with meals) Dulaglutide 0.75 MG/0.5ML SOPN, Inject 0.75 mg into the skin once a week Mondays budesonide-formoterol (SYMBICORT) 80-4.5 MCG/ACT AERO, Inhale 2 puffs into the lungs 2 times daily vitamin D (ERGOCALCIFEROL) 1.25 MG (46462 UT) CAPS capsule, Take 50,000 Units by mouth once a week Tuesday promethazine (PHENERGAN) 12.5 MG tablet, Take 12.5 mg by mouth every 6 hours as needed for Nausea ALPRAZolam (XANAX) 0.5 MG tablet, Take 0.5 mg by mouth nightly as needed for Sleep. albuterol sulfate HFA (VENTOLIN HFA) 108 (90 Base) MCG/ACT inhaler, Inhale 2 puffs into the lungs every 6 hours as needed for Wheezing lisinopril (PRINIVIL;ZESTRIL) 20 MG tablet, Take 20 mg by mouth daily Current Medications: Scheduled Meds: amLODIPine 10 mg Oral Daily atorvastatin 20 mg Oral Nightly brexpiprazole 4 mg Oral Daily budesonide-formoterol 2 puff Inhalation BID lamoTRIgine 200 mg Oral Daily [Held by provider] lisinopril 20 mg Oral Daily metoprolol tartrate 50 mg Oral BID mirtazapine 30 mg Oral Nightly venlafaxine 225 mg Oral Daily insulin lispro 0-16 Units SubCUTAneous TID WC insulin lispro 0-4 Units SubCUTAneous Nightly [START ON 05/31/2022] vitamin D 50,000 Units Oral Weekly pantoprazole 40 mg Oral QAM AC sodium chloride flush 5-40 mL IntraVENous 2 times per day piperacillin-tazobactam 3,375 mg IntraVENous Q8H heparin (porcine) 5,000 Units SubCUTAneous 3 times per day insulin regular 10 Units IntraVENous Once dextrose 25 g IntraVENous Once tamsulosin 0.4 mg Oral Daily sodium chloride flush 5-40 mL IntraVENous 2 times per day Continuous Infusions: sodium bicarbonate infusion 100 mL/hr at 05/30/22 0637 dextrose sodium chloride sodium chloride PRN Meds: albuterol sulfate HFA, ALPRAZolam, glucose, dextrose bolus OR dextrose bolus, glucagon (rDNA), dextrose, sodium chloride flush, sodium chloride, ondansetron OR ondansetron, acetaminophen OR acetaminophen, hyoscyamine, sodium chloride flush, sodium chloride, fentanNYL, morphine Input/Output: I/O last 3 completed shifts: In: 2784.4 [P.O.:720; I.V.:1877.5; IV Piggyback:186.9] Out: 7700 [Urine:7700]. Patient Vitals for the past 96 hrs (Last 3 readings): Weight 05/30/22 0514 (!) 359 lb 2.1 oz (162.9 kg) 05/29/22 0600 (!) 364 lb 10.3 oz (165.4 kg) Vital Signs: Temperature: Temp: 98.4 F (36.9 C) TMax: Temp (24hrs), Av.5 F (36.9 C), Min:98.1 F (36.7 C), Max:99.1 F (37.3 C) Respirations: Resp: 12 Pulse: Heart Rate: 57 BP: BP: 111/66 BP Range: Systolic (24hrs), Av , Min:98 , Max:144 Diastolic (24hrs), Av, Min:61, Max:90 Physical Examination: General: AAO x 3, speaking in full sentences, no accessory muscle use. HEENT: Atraumatic, normocephalic, no throat congestion, moist mucosa. Eyes: Pupils equal, round and reactive to light, EOMI. Neck: No JVD, no thyromegaly, no lymphadenopathy. Chest: Diminished breath sounds, no rales or wheezes. Cardiac: S1 S2 RR, no murmurs, gallops or rubs, JVP not raised. Abdomen: Soft, non-tender, no masses or organomegaly, BS audible. : No suprapubic or flank tenderness. Neuro: AAO x 3, No FND. SKIN: No rashes, good skin turgor. Extremities: No edema, palpable peripheral pulses, no calf tenderness. Labs: Recent Labs 05/28/22165805/30/22 0308 WBC 7.2 8.3 RBC 4.73 4.32 HGB 14.6 13.2 HCT 48.9 41.1 MCV 103.4* 95.1 MCH 30.9 30.6 MCHC 29.9 32.1 RDW 14.4 14.2 PLT 118* 206 MPV 9.8 10.2 BMP: Recent Labs 05/28/22165405/28/22202305/29/22 0705/29/22204505/30/22 0308 NA 131* -- 139 140 143 K 5.6* < > 4.6 4.0 4.3 CL 103 -- 105 106 109* CO2 9* -- 14* 19* 20 BUN 85* -- 78* -- 71* CREATININE 7.05* -- 5.79* -- 4.53* GLUCOSE 153* -- 187* -- 189* CALCIUM 9.0 -- 9.1 -- 8.6 < > = values in this interval not displayed. Phosphorus: Recent Labs 05/29/22 0701 PHOS 5.6* Magnesium: Recent Labs 05/28/22165405/29/22 0701 05/30/22 0308 MG 1.9 1.8 1.9 Albumin: Recent Labs 05/28/22165405/29/22 0701 05/30/22 0308 LABALBU 2.8* 3.1* 3.0* SPEP: Lab Results Component Value Date/Time PROT 6.6 05/30/2022 03:08 AM ALBCAL PENDING 05/28/2022 08:45 PM ALBPCT PENDING 05/28/2022 08:45 PM LABALPH PENDING 05/28/2022 08:45 PM LABALPH PENDING 05/28/2022 08:45 PM A1PCT PENDING 05/28/2022 08:45 PM A2PCT PENDING 05/28/2022 08:45 PM LABBETA PENDING 05/28/2022 08:45 PM BETAPCT PENDING 05/28/2022 08:45 PM GAMGLOB PENDING 05/28/2022 08:45 PM GGPCT PENDING 05/28/2022 08:45 PM PATH PENDING 05/28/2022 08:45 PM C3: Lab Results Component Value Date/Time C3 185 05/28/2022 08:45 PM C4: Lab Results Component Value Date/Time C4 62 05/28/2022 08:45 PM Urinalysis/Chemistries: Lab Results Component Value Date/Time NITRU NEGATIVE 05/28/2022 06:21 PM COLORU Yellow 05/28/2022 06:21 PM PHUR 5.5 05/28/2022 06:21 PM WBCUA 10 TO 20 05/28/2022 06:21 PM RBCUA TOO NUMEROUS TO COUNT 05/28/2022 06:21 PM SPECGRAV 1.011 05/28/2022 06:21 PM LEUKOCYTESUR TRACE 05/28/2022 06:21 PM UROBILINOGEN Normal 05/28/2022 06:21 PM BILIRUBINUR NEGATIVE 05/28/2022 06:21 PM GLUCOSEU NEGATIVE 05/28/2022 06:21 PM KETUA NEGATIVE 05/28/2022 06:21 PM Urine Sodium: Lab Results Component Value Date/Time KYLAH 61 05/28/2022 06:21 PM Urine Osmolarity: Lab Results Component Value Date/Time OSMOU 317 05/28/2022 06:21 PM Urine Creatinine: Lab Results Component Value Date/Time LABCREA 82.7 05/28/2022 06:21 PM Radiology: CXR: Assessment: 1. Acute Kidney Injury: Secondary to obstructive uropathy from left ureteral obstruction, left nephrolithiasis in a patient with an atrophic right kidney on imaging studies. Additionally, ischemic ATN from systemic inflammatory response syndrome related to complicated UTI. Creatinine peaked to 8.0 2. Chronic kidney disease stage III based on history baseline creatinine not known has followed up with nephrology in the past, last seen 6 years ago. Baseline unknown. 3. Left hydronephrosis s/p cystoscopy and left ureter stent. Continues to have carballo catheter in place per urology. 4. Obstructive uropathy and a solitary functioning left kidney secondary to left ureteral obstruction from left nephrolithiasis appears to be acute in nature given the sudden onset of symptoms over aperiod of 2 days, status post cystoscopy left ureteral stent placement. Also found to have severe phimosis and urethral obstruction requiring urethral dilatation 5. Hyperkalemia from acute kidney injury and hemolyzed specimen and Aldactone use and extracellularshift from metabolic acidosis, potassium was 5.6 on presentation 6. Diabetes 7. Complicated UTI Plan: 1. Decrease Bicarb IV fluid to 75 ml/hour. Will discontinue once oral intake improves further 2. Daily Labs 3. Keep carballo per urology recommendation 4. Increase activity 5. Expect renal recovery 6. No indications for dialysis Nutrition Please ensure that patient is on a renal diet/TF. Avoid nephrotoxic drugs/contrast exposure. We will continue to follow along with you. Elise Beach HOUSE MOVING SUPERVISOR Attending Physician Statement I have discussed the care of Steven Walden, including pertinent history and exam findings with the HOUSE MOVING SUPERVISOR. I have reviewed the [place] elements of all parts of the encounter with the HOUSE MOVING SUPERVISOR. I have seen and examined the patient. I agree with the assessment and plan and status of the problem list as documented. Meseret Ballard MD Nephrology Attending Physician [facility] 05/30/2022 * Yesenia EspinoBRODIE - CAFE HELPER - 05/30/2022 8:23 AM EST Images from the original note were not included. [facility] Office: [phone] Chris Osman DO, Terrence Johns DO, Stefani Augustin DO, Jaspreet Mosley DO, Surekha Batista MD, Adrienne Means MD, Rosales Singh MD, Caitlyn Benz MD, Abdoul Camargo MD, Cathy Farooq MD, Chepe Cordova DO, Love Hess MD, Deja Guevara DO, April Girard MD, Arvin Maya MD, Jessica Osman DO, Shima Watson MD, Raphael Connor MD, Jerome Simon DO, Yoselyn Thakkar MD, Codi Self MD, Gilda Sousa MD, Vikki Adorno MD, Jarocho Real DO, Krishan Vogt MD, Radha William MD, Shaunna Freitas, HOUSE MOVING SUPERVISOR, Prabha Hauser, HOUSE MOVING SUPERVISOR, Shirlene Dacosta, HOUSE MOVING SUPERVISOR, Favian Ji, HOUSE MOVING SUPERVISOR, Yesenia Espino, [facility], Ema Mason, HOUSE MOVING SUPERVISOR, Calista Mendez, HOUSE MOVING SUPERVISOR, Gunjan Ruiz, HOUSE MOVING SUPERVISOR, Sharon Barry, HOUSE MOVING SUPERVISOR, Sri Weiner, HOUSE MOVING SUPERVISOR, Gillian Valles PA-C, Carleen Paiz, SOCIAL WORK FACULTY MEMBER, Catie Cheema, HOUSE MOVING SUPERVISOR, Chelsea Kulkarni, [facility] IN-PATIENT SERVICE [facility] Progress Note 05/30/2022 8:23 AM Name: Steven Walden Acct: [id number] Room: IP Day: 2 Admit Date: 05/28/2022 4:25 PM PCP: No primary care provider on file. Code Status: Full Code Subjective: C/C: Flank pain, sent for obstructing kidney stone Interval History Status: improved. Patient evaluated in room, renal function still elevated but showing improvement. Patient is tolerating p.o. intake well. Discussed with nephrology, planning on transitioning sodium bicarb infusion today to a decreased rate. Patient's blood pressure better controlled after resuming home medications yesterday. Carballo continues with hematuria Brief History: This is a 62-year-old male that is transferred to [facility] from [facility] for obstructing kidney stone with acute kidney injury. He presented there with a 2-day history of flank pain with associated fever. He denies any dysuria or pyuria. He has a remote history of akidney stone 30 years ago but has not had recurrence until this current episode. He has felt well up till approximately 2 days ago, family reports that he has bilateral fatigue and not acting his normal self for approximately a week. Underwent cystoscopy, coud catheter insertion and left ureter stent on 05/28/2022. Urology and nephrology evaluations underway Review of Systems: Constitutional: negative for chills, fever, sweats, + tremors Respiratory: negative for cough, dyspnea on exertion, shortness of breath, wheezing Cardiovascular: negative for chest pain, chest pressure/discomfort, lower extremity edema, palpitations Gastrointestinal: negative for abdominal pain, constipation, diarrhea, nausea, vomiting Neurological: negative for dizziness, headache Medications: Allergies: No Known Allergies Current Meds: Scheduled Meds: amLODIPine 10 mg Oral Daily atorvastatin 20 mg Oral Nightly brexpiprazole 4 mg Oral Daily budesonide-formoterol 2 puff Inhalation BID lamoTRIgine 200 mg Oral Daily [Held by provider] lisinopril 20 mg Oral Daily metoprolol tartrate 50 mg Oral BID mirtazapine 30 mg Oral Nightly venlafaxine 225 mg Oral Daily insulin lispro 0-16 Units SubCUTAneous TID WC insulin lispro 0-4 Units SubCUTAneous Nightly [START ON 05/31/2022] vitamin D 50,000 Units Oral Weekly pantoprazole 40 mg Oral QAM AC sodium chloride flush 5-40 mL IntraVENous 2 times per day piperacillin-tazobactam 3,375 mg IntraVENous Q8H heparin (porcine) 5,000 Units SubCUTAneous 3 times per day insulin regular 10 Units IntraVENous Once dextrose 25 g IntraVENous Once tamsulosin 0.4 mg Oral Daily sodium chloride flush 5-40 mL IntraVENous 2 times per day Continuous Infusions: sodium bicarbonate infusion 100 mL/hr at 05/30/22 0637 dextrose sodium chloride sodium chloride PRN Meds: albuterol sulfate HFA, ALPRAZolam, glucose, dextrose bolus OR dextrose bolus, glucagon (rDNA), dextrose, sodium chloride flush, sodium chloride, ondansetron OR ondansetron, acetaminophen OR acetaminophen, hyoscyamine, sodium chloride flush, sodium chloride, fentanNYL, morphine Data: Past Medical History: has a past medical history of Anxiety, Chronic kidney disease, Congenital heart defect, Diabetes mellitus (HCC), Gout, Hyperlipidemia, Hypertension, Major depressive disorder, Neuropathy, and Peptic ulcer disease. Social History: reports that he has never smoked. He has never used smokeless tobacco. He reports current alcohol use. Family History: Family History Problem Relation Age of Onset Heart Disease Mother pacer Cancer Sister Vitals: BP 111/66 Pulse 57 Temp 98.4 F (36.9 C) (Oral) Resp 12 Ht 6' 3.98 (1.93 m) Wt (!) 359 lb2.1 oz (162.9 kg) SpO2 95% BMI 43.73 kg/m Temp (24hrs), Av.4 F (36.9 C), Min:98.1 F (36.7 C), Max:99.1 F (37.3 C) Recent Labs 05/29/22 1106 05/29/22 1621 05/29/22192305/30/22 0801 POCGLU 187* 307* 290* 146* I/O (24Hr): Intake/Output Summary (Last 24 hours) at 05/30/2022 0823 Last data filed at 05/30/2022 0637 Gross per 24 hour Intake 2784.43 ml Output 3600 ml Net -815.57 ml Labs: Hematology: Recent Labs 05/28/22165405/28/22165805/30/22 0308 WBC -- 7.2 8.3 RBC -- 4.73 4.32 HGB -- 14.6 13.2 HCT -- 48.9 41.1 MCV -- 103.4* 95.1 MCH -- 30.9 30.6 MCHC -- 29.9 32.1 RDW -- 14.4 14.2 PLT -- 118* 206 MPV -- 9.8 10.2 INR 1.0 -- -- Chemistry: Recent Labs 05/28/22165405/28/22202305/29/22 0701 05/29/22204505/30/22 0308 NA 131* -- 139 140 143 K 5.6* < > 4.6 4.0 4.3 CL 103 -- 105 106 109* CO2 9* -- 14* 19* 20 GLUCOSE 153* -- 187* -- 189* BUN 85* -- 78* -- 71* CREATININE 7.05* -- 5.79* -- 4.53* MG 1.9 -- 1.8 -- 1.9 ANIONGAP 19* -- 20* 15 14 LABGLOM 8* -- 10* -- 14* CALCIUM 9.0 -- 9.1 -- 8.6 PHOS -- -- 5.6* -- -- PROBNP 2,234* -- -- -- -- < > = values in this interval not displayed. Recent Labs 05/28/22 1655 05/28/22 1904 05/28/22 2044 05/28/22 2045 05/29/22 0701 05/29/22 0810 05/29/22 1106 05/29/22 1621 05/29/22 1924 05/30/22 0308 05/30/22 0801 PROT 7.2 -- -- 6.7 7.1 -- -- -- -- 6.6 -- LABALBU 2.8* -- -- -- 3.1* -- -- -- -- 3.0* -- AST 44* -- -- -- 32 -- -- -- -- 24 -- ALT 23 -- -- -- 21 -- -- -- -- 19 -- ALKPHOS 107 -- -- -- 104 -- -- -- -- 97 -- BILITOT 0.5 -- -- -- 0.4 -- -- -- -- 0.3 -- URICACID -- -- -- 7.8* -- -- -- -- -- -- -- POCGLU -- < > 187* -- -- 165* 187* 307* 290* -- 146* < > = values in this interval not displayed. ABG:No results found for: POCPH, PHART, PH, POCPCO2, BHB2VVF, PCO2, POCPO2, PO2ART, PO2, POCHCO3, YEH5GMB, HCO3, NBEA, PBEA, BEART, BE, THGBART, THB, OBR5UGX, GTPT4VON, H5ZEAAUE, O2SAT, FIO2 No results found for: SPECIAL Lab Results Component Value Date/Time CULTURE NO SIGNIFICANT GROWTH 05/28/2022 06:52 PM Radiology: US RETROPERITONEAL COMPLETE Result Date: 05/28/2022 No stone, mass or hydronephrosis within the kidneys. Kidneys have normal size. Physical Examination: General appearance: alert, cooperative and no distress, tremoring/twitching noted improved in comparison to yesterday Mental Status: oriented to person, place and time and normal affect Lungs: clear to auscultation bilaterally, normal effort Heart: regular rate and rhythm, no murmur Abdomen: Obese, soft, nontender, nondistended, normal bowel sounds, no masses, hepatomegaly, splenomegaly : Carballo catheter with hematuria Extremities: +2 bilateral lower extremity nonpitting edema, redness, tenderness in the calves Skin: no gross lesions, rashes, induration Assessment: Hospital Problems Last Modified POA * (Principal) DAISY (acute kidney injury) ([facility]) 05/28/2022 Yes ARF (acute renal failure) ([facility]) 05/28/2022 Yes Chronic kidney disease 05/28/2022 Yes Type 2 diabetes mellitus with stage 3a chronic kidney disease ([facility]) 05/28/2022 Yes Hyperlipidemia 05/28/2022 Yes Primary hypertension 05/28/2022 Yes Urinary tract obstruction by kidney stone 05/28/2022 Yes Hydronephrosis of left kidney 05/28/2022 Yes Atrophy of right kidney 05/28/2022 Yes Left ureteral stone 05/28/2022 Yes Plan: Left-sided obstructing kidney stone with hydronephrosis: Status post cystoscopy with required dilation secondary to phimosis and left-sided stent placement with coud Carballo catheter insertion completed urgently on admission in the evening of 05/28/2022. Continue Flomax, levsin, coud catheter per urology's recommendation. Continue Zosyn DAISY on CKD stage IIIa with atrophic right kidney: Nephrology following. Appreciate recommendations.On sodium bicarb infusion at this time, planning to transition to normal saline. Hold lisinopril, hydrochlorothiazide Primary hypertension: Uncontrolled, resume home medications Diabetes mellitus type 2: Check A1c. Continue Hi-iss Hypoglycemic protocol. Consistent carb diet Dyslipidemia: Statin therapy GI/DVT prophylaxis: No GI prophylaxis warranted, continue heparin PT, OT BRODIE Valente NP 05/30/2022 8:23 AM * Kevin Myles MD - 05/30/2022 7:53 AM EST Images from the original note were not included. Kevin Myles MD [facility] Urology Progress Note Subjective: Diet: No acute events overnight Continues to improve Denies flank pain Denies nausea, vomiting, fevers and chills Output- 3600 cc Patient Vitals for the past 24 hrs: BP Temp Temp src Pulse Resp SpO2 Height Weight 05/30/22 0557 -- -- -- -- -- 95 % -- -- 05/30/22 0514 -- -- -- -- -- -- -- (!) 359 lb 2.1 oz (162.9 kg) 05/30/22 0322 111/66 -- -- -- -- -- -- -- 05/30/22 0315 98/61 98.4 F (36.9 C) Oral 57 12 94 % -- -- 05/29/22 2316 100/79 98.2 F (36.8 C) Oral 60 16 94 % -- -- 05/29/22 2208 -- -- -- -- -- 94 % -- -- 05/29/22 1912 (!) 144/90 98.1 F (36.7 C) Oral 80 25 94 % -- -- 05/29/22 1530 124/84 98.6 F (37 C) Oral 81 30 91 % -- -- 05/29/22 1226 (!) 142/83 99.1 F (37.3 C) Temporal 88 (!) 34 94 % -- -- 05/29/22 1215 -- -- -- -- -- -- 6' 3.98 (1.93 m) -- 05/29/22 1132 (!) 142/83 98.4 F (36.9 C) Temporal 88 29 92 % -- -- 05/29/22 1004 -- -- -- 88 (!) 31 92 % -- -- 05/29/22 0828 (!) 202/96 98.2 F (36.8 C) Oral 74 24 97 % -- -- Intake/Output Summary (Last 24 hours) at 05/30/2022 0753 Last data filed at 05/30/2022 0637 Gross per 24 hour Intake 2784.43 ml Output 3600 ml Net -815.57 ml Recent Labs 05/28/22 1659 05/30/22 0308 WBC 7.2 8.3 HGB 14.6 13.2 HCT 48.9 41.1 MCV 103.4* 95.1 PLT 118* 206 Recent Labs 05/28/22 1655 05/28/224 05/29/22 0701 05/29/22 2046 05/30/22 0308 NA 131* -- 139 140 143 K 5.6* < > 4.6 4.0 4.3 CL 103 -- 105 106 109* CO2 9* -- 14* 19* 20 PHOS -- -- 5.6* -- -- BUN 85* -- 78* -- 71* CREATININE 7.05* -- 5.79* -- 4.53* < > = values in this interval not displayed. Recent Labs 05/28/22 1821 COLORU Yellow PHUR 5.5 WBCUA 10 TO 20 RBCUA TOO NUMEROUS TO COUNT SPECGRAV 1.011 LEUKOCYTESUR TRACE* UROBILINOGEN Normal BILIRUBINUR NEGATIVE Additional Lab/culture results: Physical Exam: AO X 3 Neck: Supple Chest: bilateral symmetrical chest rise/ Non labored breathing Circulatory: Peripheries warm , well perfused P/A: soft, nondistended Carballo catheter with clear yellow urine Interval Imaging Findings: Impression: Steven Walden is a obstructing left ureteral stone and a solitary kidney, s/p cystoscopy, left ureteral stent insertion and ureteral dilatation with difficult Carballo catheter insertion on 05/28/2022 Acute kidney injury on chronic kidney disease stage III Plan: Diet : Okay for regular diet Supportive care per primary team Continue broad-spectrum antibiotics for now, follow-up cultures. , plan for discharge on 10 days ofculture sensitive oral antibiotics Urine output 3600 cc. Please monitor for postobstructive diuresis Ambulation / IS 10 times per hour AM labs : Creatinine trending down, 4.5 from 5.7 Continue to trend creatinine and maintain Carballo catheter for now. 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 Please check with urology service before Carballo catheter removal. Emiliano Leavitt MD 7:53 AM 05/30/2022 I have reviewed the history above and agree. I have repeated the [place] portions of the physical exam and concur with the resident's findings. I have reviewed all laboratory findings and imaging reports/films. I agree with the plan as noted above. * Alexandria Conroy, PT - 05/29/2022 12:39 PM EST Physical Therapy Facility/Department: [facility] Physical Therapy Initial Assessment Name: Steven Walden : 1960 Date of Service: 05/29/2022 This is a 62-year-old male that is transferred to [facility] from [facility] for obstructing kidney stone with acute kidney injury. He presented there with a 2-day history of flank pain with associated fever. He denies any dysuria or pyuria. He has a remote history of akidney stone 30 years ago but has not had recurrence until this current episode. He has felt well up till approximately 2 days ago, family reports that he has bilateral fatigue and not acting his normal self for approximately a week. He has been eval by urology and will go emergently for cystoscopyand stone management tonight. Pt underwent: Urethral dilation with S dilators to 24F Cystoscopy Left ureteral stent insertion Difficult Carballo catheter insertion 05/28/22. Discharge Recommendations: In my professional opinion, this patient could tolerate a total of 3 hours of combined therapies post-acute care. PT Equipment Recommendations Equipment Needed: No (defer equipment recommendations to rehab facility) Patient Diagnosis(es): The encounter diagnosis was Left ureteral stone. Past Medical History: has a past medical history of Anxiety, Chronic kidney disease, Congenital heart defect, Diabetes mellitus (HCC), Gout, Hyperlipidemia, Hypertension, Major depressive disorder, Neuropathy, and Peptic ulcer disease. Past Surgical History: has a past surgical history that includes Cholecystectomy (2010); Hand surgery (Right, 12/2021); and Cystocopy (Left, 05/28/2022). Assessment Pt cooperative, flat affect; intention tremors x 4; possible hyperventilation (RR into the 30's anddizzy with mobility; BP WNL). Unsafe gait d/t tremors, difficulty mobilizing d/t same. Frequent cues including demonstration for pursed lip breathing to slow down RR. Body Structures, Functions, Activity Limitations Requiring Skilled Therapeutic Intervention: Decreased functional mobility ;Decreased ROM;Decreased endurance;Decreased balance;Decreased fine motor control;Decreased coordination;Decreased posture Therapy Prognosis: Good Decision Making: High Complexity Requires PT Follow-Up: Yes Activity Tolerance Activity Tolerance: Patient limited by endurance;Other (comment) (pt with frequently increased RR (mid 30's) with exertion--able to decrease with frequent cues for pursed lip breathing (down as low as 16-24)) Plan Physcial Therapy Plan General Plan: (5-6 visits weekly) Current Treatment Recommendations: Strengthening, ROM, Balance training, Functional mobility training, Transfer training, Endurance training, Gait training, Stair training, Neuromuscular re-education, Home exercise program, Safety education & training, Patient/Caregiver education & training, Equipment evaluation, education, & procurement, Positioning, Therapeutic activities Safety Devices Type of Devices: Call light within reach, Gait belt, Patient at risk for falls, Left in chair, Nurse notified Restraints Restraints Initially in Place: No Restrictions Restrictions/Precautions Restrictions/Precautions: Surgical Protocols, Fall Risk, General Precautions, Contact Precautions, Up as Tolerated Required Braces or Orthoses?: No Subjective General Patient assessed for rehabilitation services?: Yes Response To Previous Treatment: Not applicable Family / Caregiver Present: No Follows Commands: Impaired (slow to respond, needs occasional repetition, visual/tactile cues) Subjective Subjective: denies pain Social/Functional History Social/Functional History Lives With: Spouse Type of Home: House Home Layout: Two level, Able to Live on Main level with bedroom/bathroom Home Access: Stairs to enter with rails Entrance Stairs - Number of Steps: 8-10 Entrance Stairs - Rails: Right Home Equipment: None ADL Assistance: Independent Ambulation Assistance: Independent Transfer Assistance: Independent Active Scada Operator: Yes 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 Vision/Hearing Vision Vision: Impaired Vision Exceptions: Wears glasses at all times Hearing Hearing: Within functional limits Cognition Orientation Overall Orientation Status: Within Functional Limits Orientation Level: (flat affect but oriented) Cognition Overall Cognitive Status: WFL Objective Heart Rate: 88 Heart Rate Source: Monitor BP: (!) 142/83 BP Location: Left upper arm BP Method: Automatic MAP (Calculated): 103 Resp: 29 SpO2: 94 % O2 Device: None (Room air) Comment: pt tends to hyperventilate--c/o dizziness; BP stable/WNL; improved when he slowed down hisbreathing Observation/Palpation Posture: Fair PROM RLE (degrees) RLE PROM: WFL PROM LLE (degrees) LLE PROM: WFL PROM RUE (degrees) RUE PROM: Exceptions--shoulder elevation ~90 degrees; elbow distal WFL PROM LUE (degrees) LUE PROM: Exceptions--shoulder elevation ~90 degrees; elbow distal WFL Strength RLE Strength RLE: WFL Strength LLE Strength LLE: WFL Strength RUE Strength RUE: WFL Strength LUE Strength LUE: WFL Strength Other Other: (pt with intention tremors x 4-- no tremors at rest) Bed mobility Rolling to Right: Minimal assistance Supine to Sit: Minimal assistance Scooting: Minimal assistance Transfers Sit to Stand: Moderate Assistance x 4 with seated rest break in between d/t increased RR Stand to Sit: Minimal Assistance Bed to Chair: Moderate assistance Stand Pivot Transfers: Moderate Assistance Ambulation Surface: Level tile Device: Rolling Walker Assistance: Minimal assistance Quality of Gait: pt takes very small, choppy steps; tremors x 4 with all mobility Gait Deviations: Slow Reyna;Increased ELSA;Decreased step length;Decreased step height;Decreased arm swing;Decreased head and trunk rotation;Shuffles Distance: 6' (3' forward, 3' back) Stairs/Curb Stairs?: No Balance Posture: Fair Sitting - Static: Good Sitting - Dynamic: Good Standing - Static: Good Standing - Dynamic: Fair;- A/AROM Exercises: AROM x 4 Breathing Techniques: pursed lip breathing--constant verbal cues and visual cues/demonstration AM-PAC Score [facility] Inpatient Mobility Raw Score : 14 (05/29/221242) AM-PAC Inpatient T-Scale Score : 38.1 (05/29/221242) Mobility Inpatient CMS 0-100% Score: 61.29 (05/29/221242) Mobility Inpatient [facility] G-Code Modifier : CL (05/29/221242) Goals Short Term Goals Time Frame for Short Term Goals: 12 visits Short Term Goal 1: independent bed mobility Short Term Goal 2: independent transfers Short Term Goal 3: independent gait with appropriate device vs none x 100' Short Term Goal 4: stair ambulation x 10 steps with 1 HR and CG+1 Short Term Goal 5: pt independent with pursed lip breathing to keep RR <24 Patient Goals Patient Goals : get better, go home Education Patient Education Education Given To: Patient Education Provided: Role of Therapy;Plan of Care;Home Exercise Program;Precautions;Transfer Training;Fall Prevention Strategies Education Method: Verbal;Demonstration;Teach Back Education Outcome: Continued education needed Therapy Time Individual Concurrent Group Co-treatment Time In 1136 Time Out 1220 Minutes 44 Rafiq Ibrahim PT * Meseret Ballard MD - 05/29/2022 8:51 AM EST Renal Progress Note Patient : Steven Walden; 62 y.o. Location: Attending: Stefani Augustin DO Admit Date: 05/28/2022 Hospital Day: 1 Subjective Patient was seen and examined. Feeling better overall. Slept overnight. Mental fogginess has improved overnight. No acute events overnight. Vital signs stable Chart reviewed. Urine output 5.3 L overnight. Had urethral stent placed yesterday left side. Carballo remains Work Up: Immunifixation pending. [place] Lambda ratio pending. Complement C3 - 185 Complement C4 - 62 UA noted 2 to 5 casts, 10 to 20 WBC, large urine hgb too large to count. Urine creatinine 82.7, urine osmolality 317, urine sodium 61. Objective VS: BP (!) 202/96 Pulse 72 Temp 98.2 F (36.8 C) (Oral) Resp 26 Wt (!) 364 lb 10.3 oz (165.4kg) SpO2 97% MAXIMUM TEMPERATURE OVER 24HRS: Temp (24hrs), Av.2 F (36.8 C), Min:97.7 F (36.5 C), Max:98.6 F (37 C) 24HR BLOOD PRESSURE RANGE: Systolic (24hrs), Av , Min:105 , Max:202 ; Diastolic (24hrs), Av, Min:60, Max:100 24HR INTAKE/OUTPUT: Intake/Output Summary (Last 24 hours) at 05/29/2022 0851 Last data filed at 05/29/2022 0600 Gross per 24 hour Intake 400 ml Output 5300 ml Net -4900 ml WEIGHT :Patient Vitals for the past 96 hrs (Last 3 readings): Weight 05/29/22 0600 (!) 364 lb 10.3 oz (165.4 kg) Current Medications: Scheduled Meds: sodium chloride flush 5-40 mL IntraVENous 2 times per day piperacillin-tazobactam 3,375 mg IntraVENous Q8H heparin (porcine) 5,000 Units SubCUTAneous 3 times per day insulin regular 10 Units IntraVENous Once dextrose 25 g IntraVENous Once tamsulosin 0.4 mg Oral Daily sodium chloride flush 5-40 mL IntraVENous 2 times per day Continuous Infusions: sodium chloride sodium chloride IV infusion builder 100 mL/hr at 05/29/22 0713 Physical Examination: General: AAO x 3, speaking in full sentences, no accessory muscle use. HEENT: Atraumatic, normocephalic, no throat congestion, moist mucosa. Eyes: Pupils equal, round and reactive to light, EOMI. Neck: No JVD, no thyromegaly, no lymphadenopathy. Chest: Bilateral vesicular breath sounds, no rales or wheezes. Cardiac: S1 S2 RR, no murmurs, gallops or rubs, JVP not raised. No rubs heard. Abdomen: Soft, non-tender, no masses or organomegaly, BS audible. : No suprapubic or flank tenderness. Neuro: AAO x 3, No FND. SKIN: No rashes, good skin turgor. Extremities: 1+ edema, palpable peripheral pulses, no calf tenderness. No asterixis on exam today, mild clonus in the ankle area Labs: Recent Labs 05/28/22 1659 WBC 7.2 RBC 4.73 HGB 14.6 HCT 48.9 MCV 103.4* MCH 30.9 MCHC 29.9 RDW 14.4 PLT 118* MPV 9.8 BMP: Recent Labs 05/28/22 16505/28/22202305/29/22 0701 NA 131* -- 139 K 5.6* 5.4* 4.6 CL 103 -- 105 CO2 9* -- 14* BUN 85* -- 78* CREATININE 7.05* -- 5.79* GLUCOSE 153* -- 187* CALCIUM 9.0 -- 9.1 Phosphorus: Recent Labs 05/29/22 0701 PHOS 5.6* Magnesium: Recent Labs 05/28/22 1655 05/29/22 0701 MG 1.9 1.8 Albumin: Recent Labs 05/28/22 1655 05/29/22 0701 LABALBU 2.8* 3.1* PTH: Lab Results Component Value Date/Time IPTH 152.9 05/28/2022 08:45 PM Urinalysis/Chemistries: Lab Results Component Value Date/Time NITRU NEGATIVE 05/28/2022 06:21 PM COLORU Yellow 05/28/2022 06:21 PM PHUR 5.5 05/28/2022 06:21 PM WBCUA 10 TO 20 05/28/2022 06:21 PM RBCUA TOO NUMEROUS TO COUNT 05/28/2022 06:21 PM SPECGRAV 1.011 05/28/2022 06:21 PM LEUKOCYTESUR TRACE 05/28/2022 06:21 PM UROBILINOGEN Normal 05/28/2022 06:21 PM BILIRUBINUR NEGATIVE 05/28/2022 06:21 PM GLUCOSEU NEGATIVE 05/28/2022 06:21 PM KETUA NEGATIVE 05/28/2022 06:21 PM Radiology: CXR: Assessment: 1. Acute Kidney Injury: Secondary to obstructive uropathy from left ureteral obstruction, left nephrolithiasis in a patient with an atrophic right kidney on imaging studies. Element of ischemic ATN from systemic inflammatory response syndrome related to complicated UTI may be contributing as well. Urinalysis showed 10-20 WBCs and too numerous to count RBCs. CT scan showed left hydronephrosis as described above. He is s/p left ureteral stent placement. Baseline creatinine not known does have known history of chronic kidney disease stage III creatinine peaked up to 8.0. Did have uremic symptomsaccording to his family. Expect renal function to improve after relief of obstruction. now down to 5. 2. Obstructive uropathy and a solitary functioning left kidney secondary to left ureteral obstruction from left nephrolithiasis appears to be acute in nature given the sudden onset of symptoms over aperiod of 2 days, status post cystoscopy left ureteral stent placement. Also found to have severe phimosis and urethral obstruction requiring urethral dilatation 3. Hyperkalemia from acute kidney injury and hemolyzed specimen and Aldactone use and extracellularshift from metabolic acidosis, potassium was 5.6 on presentation 4. Anion gap metabolic acidosis secondary to acute kidney injury 5. Uremia by his history secondary to acute kidney injury 6. Hypoglycemia secondary to acute kidney injury 7. Morbid obesity with suspected pulmonary hypertension and right heart failure based on lower extremity edema 8. Chronic kidney disease stage III based on history baseline creatinine not known has followed up with nephrology in the past, last seen 6 years ago 9. Type 2 diabetes with complications 10. Complicated UTI 11. History of nephrolithiasis Plan: 1. Continue IV fluids to sterile water with 150 mEq of sodium bicarbonate but decrease the rate to 100 ml an hour 2. Leave Carballo in per urology instructions 3. Creatinine improving urine output adequate. 4. Labs in am 5. Following. Nutrition Renal Diet/TF Electronically signed by Aguila Ramirez CNP, SCREW[employer] - HOUSE MOVING SUPERVISOR on 05/29/2022 at 8:51 AM [facility]. Attending Physician Statement I have discussed the care of Steven Walden, including pertinent history and exam findings with the HOUSE MOVING SUPERVISOR. I have reviewed the [place] elements of all parts of the encounter with the HOUSE MOVING SUPERVISOR. I have seen and examined the patient. I agree with the assessment and plan and status of the problem list as documented and have edited the documentation as appropriate. Addiitionally I anticipate further improvement in renal function and electrolyte and acid-base status. Meseret Ballard MD Nephrology Attending Physician [facility] 05/29/2022 * Kevin Myles MD - 05/29/2022 8:47 AM EST Images from the original note were not included. Kevin Myles MD [facility] Urology Progress Note Subjective: Diet: No acute events overnight Reports interval improvement in mental status Denies flank pain Denies nausea, vomiting, fevers and chills Output-5300 cc Patient Vitals for the past 24 hrs: BP Temp Temp src Pulse Resp SpO2 Weight 05/29/22 0828 (!) 202/96 98.2 F (36.8 C) Oral -- -- 97 % -- 05/29/22 0600 -- -- -- -- -- -- (!) 364 lb 10.3 oz (165.4 kg) 05/29/22 0422 (!) 138/90 97.8 F (36.6 C) Axillary 72 26 95 % -- 05/28/222351 122/83 97.7 F (36.5 C) Oral 71 15 95 % -- 05/28/222026 105/60 98.2 F (36.8 C) -- 67 16 95 % -- 05/28/221944 117/67 97.9 F (36.6 C) -- 70 23 95 % -- 05/28/22 193 118/71 -- -- 71 16 94 % -- 05/28/221914 124/74 -- -- 72 23 97 % -- 05/28/22 190 122/65 -- -- 74 22 99 % -- 05/28/22 1852 -- -- -- 75 25 98 % -- 05/28/22 1845 138/80 -- -- 77 27 94 % -- 05/28/221836 116/68 98.6 F (37 C) Temporal 79 25 95 % -- 05/28/22 183 (!) 122/91 98.6 F (37 C) -- 73 23 93 % -- 05/28/22 1710 -- -- -- 67 -- -- -- 05/28/22 1636 (!) 132/100 98.4 F (36.9 C) Oral 69 18 -- -- 05/28/22 1629 (!) 132/100 -- -- 71 23 -- -- Intake/Output Summary (Last 24 hours) at 05/29/2022 0847 Last data filed at 05/29/2022 0600 Gross per 24 hour Intake 400 ml Output 5300 ml Net -4900 ml Recent Labs 05/28/22 1659 WBC 7.2 HGB 14.6 HCT 48.9 MCV 103.4* PLT 118* Recent Labs 05/28/22 1655 05/28/22202305/29/22 0701 NA 131* -- 139 K 5.6* 5.4* 4.6 CL 103 -- 105 CO2 9* -- 14* PHOS -- -- 5.6* BUN 85* -- 78* CREATININE 7.05* -- 5.79* Recent Labs 05/28/22 1821 COLORU Yellow PHUR 5.5 WBCUA 10 TO 20 RBCUA TOO NUMEROUS TO COUNT SPECGRAV 1.011 LEUKOCYTESUR TRACE* UROBILINOGEN Normal BILIRUBINUR NEGATIVE Additional Lab/culture results: Physical Exam: AO X 3 Neck: Supple Chest: bilateral symmetrical chest rise/ Non labored breathing Circulatory: Peripheries warm , well perfused P/A: soft, nondistended Carballo catheter with clear yellow urine Interval Imaging Findings: Impression: Steven Walden is a obstructing left ureteral stone and a solitary kidney, s/p cystoscopy, left ureteral stent insertion and ureteral dilatation with difficult Carballo catheter insertion on 05/28/2022 Acute kidney injury on chronic kidney disease stage III Plan: Diet : Okay for regular diet Supportive care per primary team Continue broad-spectrum antibiotics for now, follow-up cultures. , plan for discharge on 10 days ofculture sensitive oral antibiotics Urine output-5300 cc. Please monitor for postobstructive diuresis Ambulation / IS 10 times per hour AM labs : Creatinine trending down, 5.7 from 8. Continue to trend creatinine and maintain Carballo catheter for now. 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 Please check with urology service before Carballo catheter removal. Emiliano Leavitt MD 8:47 AM 05/29/2022 I have reviewed the history above and agree. I have repeated the [place] portions of the physical exam and concur with the resident's findings. I have reviewed all laboratory findings and imaging reports/films. I agree with the plan as noted above. * Yesenia Espino APRN - MINESH - 05/29/2022 7:43 AM EST Images from the original note were not included. [facility] Office: [phone] Chris Osman DO, Terrence Johns DO, Stefani Augustin DO, Jaspreet Mosley DO, Surekha Batista MD, Adrienne Means MD, Rosales Singh MD, Caitlyn Benz MD, Abdoul Camargo MD, Cathy Farooq MD, Chepe Cordova DO, Love Hess MD, Deja Guevara DO, April Girard MD, Arvin Maya MD, Jessica Osman DO, Shima Watson MD, Raphael Connor MD, Jerome Simon DO, Yoselyn Thakkar MD, Codi Self MD, Gilda Sousa MD, Vikki Adorno MD, Jarocho Real DO, Krishan Vogt MD, Radha William MD, Shaunna Freitas, HOUSE MOVING SUPERVISOR, Prabha Hauser, HOUSE MOVING SUPERVISOR, Shirlene Dacosta, HOUSE MOVING SUPERVISOR, Favian Ji, HOUSE MOVING SUPERVISOR, Yesenia Espino, [facility], Ema Mason, HOUSE MOVING SUPERVISOR, Calista Mendez, HOUSE MOVING SUPERVISOR, Gunjan Ruiz, HOUSE MOVING SUPERVISOR, Sharon Barry, HOUSE MOVING SUPERVISOR, Sri Weiner, HOUSE MOVING SUPERVISOR, Gillian Valles PA-C, Carleen Paiz, [facility], Catie Cheema, HOUSE MOVING SUPERVISOR, Chelsea Kulkarni, HOUSE MOVING SUPERVISOR [facility] IN-PATIENT SERVICE [facility] Progress Note 05/29/2022 7:47 AM Name: Steven Walden Acct: [id number] Room: Day: 1 Admit Date: 05/28/2022 4:25 PM PCP: No primary care provider on file. Code Status: Full Code Subjective: C/C: Flank pain, sent for obstructing kidney stone Interval History Status: improved. Patient evaluated in room resting in bed. Underwent cystoscopy, coud catheter insertion and left ureter stent on 05/28/2022. Carballo catheter demonstrating hematuria. Renal function downtrending as expected but still elevated. Blood pressure elevated, home medications resumed. Patient states he is feeling much better in comparison to yesterday Brief History: This is a 62-year-old male that is transferred to [facility] for obstructing kidney stone with acute kidney injury. He presented there with a 2-day history of flank pain with associated fever. He denies any dysuria or pyuria. He has a remote history of akidney stone 30 years ago but has not had recurrence until this current episode. He has felt well up till approximately 2 days ago, family reports that he has bilateral fatigue and not acting his normal self for approximately a week. Underwent cystoscopy, coud catheter insertion and left ureter stent on 05/28/2022. Urology and nephrology evaluations underway Review of Systems: Constitutional: negative for chills, + improving fevers, sweats, + tremors Respiratory: negative for cough, dyspnea on exertion, shortness of breath, wheezing Cardiovascular: negative for chest pain, chest pressure/discomfort, lower extremity edema, palpitations Gastrointestinal: negative for abdominal pain, constipation, diarrhea, nausea, vomiting Neurological: negative for dizziness, headache Medications: Allergies: No Known Allergies Current Meds: Scheduled Meds: sodium chloride flush 5-40 mL IntraVENous 2 times per day piperacillin-tazobactam 3,375 mg IntraVENous Q8H heparin (porcine) 5,000 Units SubCUTAneous 3 times per day insulin regular 10 Units IntraVENous Once dextrose 25 g IntraVENous Once tamsulosin 0.4 mg Oral Daily sodium chloride flush 5-40 mL IntraVENous 2 times per day Continuous Infusions: sodium chloride sodium chloride IV infusion builder 100 mL/hr at 05/29/22 0713 PRN Meds: sodium chloride flush, sodium chloride, ondansetron OR ondansetron, acetaminophen OR acetaminophen, hyoscyamine, sodium chloride flush, sodium chloride, fentanNYL, morphine, ondansetron, diphenhydrAMINE Data: Past Medical History: has a past medical history of Chronic kidney disease, Congenital heart defect, Diabetes mellitus (HCC), Gout, Hyperlipidemia, Hypertension, and Neuropathy. Social History: Family History: Family History Problem Relation Age of Onset Heart Disease Mother pacer Cancer Sister Vitals: BP (!) 138/90 Pulse 72 Temp 97.8 F (36.6 C) (Axillary) Resp 26 Wt (!) 364 lb 10.3 oz (165.4kg) SpO2 95% Temp (24hrs), Av.2 F (36.8 C), Min:97.7 F (36.5 C), Max:98.6 F (37 C) Recent Labs 05/28/22 1649 05/28/22 1904 05/28/22 2044 POCGLU 126* 160* 187* I/O (24Hr): Intake/Output Summary (Last 24 hours) at 05/29/2022 0747 Last data filed at 05/29/2022 0600 Gross per 24 hour Intake 400 ml Output 5300 ml Net -4900 ml Labs: Hematology: Recent Labs 05/28/22165405/28/221658 WBC -- 7.2 RBC -- 4.73 HGB -- 14.6 HCT -- 48.9 MCV -- 103.4* MCH -- 30.9 MCHC -- 29.9 RDW -- 14.4 PLT -- 118* MPV -- 9.8 INR 1.0 -- Chemistry: Recent Labs 05/28/22165405/28/222023 NA 131* -- K 5.6* 5.4* CL 103 -- CO2 9* -- GLUCOSE 153* -- BUN 85* -- CREATININE 7.05* -- MG 1.9 -- ANIONGAP 19* -- LABGLOM 8* -- CALCIUM 9.0 -- PROBNP 2,234* -- Recent Labs 05/28/22164805/28/22165405/28/22 1904 05/28/22204305/28/222044 PROT -- 7.2 -- -- 6.7 LABALBU -- 2.8* -- -- -- AST -- 44* -- -- -- ALT -- 23 -- -- -- ALKPHOS -- 107 -- -- -- BILITOT -- 0.5 -- -- -- URICACID -- -- -- -- 7.8* POCGLU 126* -- 160* 187* -- ABG:No results found for: POCPH, PHART, PH, POCPCO2, QKD2SCH, PCO2, POCPO2, PO2ART, PO2, POCHCO3, XOP0YBH, HCO3, NBEA, PBEA, BEART, BE, THGBART, THB, FDC7JMJ, XZWQ4PME, T8YCMAJD, O2SAT, FIO2 No results found for: SPECIAL Lab Results Component Value Date/Time CULTURE NO GROWTH 12 HOURS 05/28/2022 04:59 PM Radiology: US RETROPERITONEAL COMPLETE Result Date: 05/28/2022 No stone, mass or hydronephrosis within the kidneys. Kidneys have normal size. Physical Examination: General appearance: alert, cooperative and no distress, tremoring/twitching noted Mental Status: oriented to person, place and time and normal affect Lungs: clear to auscultation bilaterally, normal effort Heart: regular rate and rhythm, no murmur Abdomen: Obese, soft, nontender, nondistended, normal bowel sounds, no masses, hepatomegaly, splenomegaly : Carballo catheter with hematuria Extremities: +2 bilateral lower extremity nonpitting edema, redness, tenderness in the calves Skin: no gross lesions, rashes, induration Assessment: Hospital Problems Last Modified POA * (Principal) DAISY (acute kidney injury) ([facility]) 05/28/2022 Yes ARF (acute renal failure) ([facility]) 05/28/2022 Yes Chronic kidney disease 05/28/2022 Yes Type 2 diabetes mellitus with stage 3a chronic kidney disease ([facility]) 05/28/2022 Yes Hyperlipidemia 05/28/2022 Yes Primary hypertension 05/28/2022 Yes Urinary tract obstruction by kidney stone 05/28/2022 Yes Hydronephrosis of left kidney 05/28/2022 Yes Atrophy of right kidney 05/28/2022 Yes Left ureteral stone 05/28/2022 Yes Plan: Left-sided obstructing kidney stone with hydronephrosis: Status post cystoscopy with required dilation secondary to phimosis and left-sided stent placement with coud Carballo catheter insertion completed urgently on admission in the evening of 05/28/2022. Continue Flomax, levsin, coud catheter per urology's recommendation. Continue Zosyn DAISY on CKD stage IIIa with atrophic right kidney: Nephrology following. Appreciate recommendations.On sodium bicarb infusion at this time. Hold lisinopril, hydrochlorothiazide Primary hypertension: Uncontrolled, resume home medications Diabetes mellitus type 2: Check A1c. Continue Hi-iss Hypoglycemic protocol. Consistent carb diet Dyslipidemia: Statin therapy GI/DVT prophylaxis: No GI prophylaxis warranted, continue heparin PT, OT BRODIE Valente NP 05/29/2022 7:47 AM * Leslie Masterson RN - 05/28/2022 6:35 PM EST PT GLASSES GIVEN TO SANDRA CASTRO RN. * Dara Denton RN - 05/28/2022 6:03 PM EST Notified OR to give d50 and IV insulin. * Dara Denton RN - 05/28/2022 5:50 PM EST Nepro paged and notified of chemistry labs and critical. * Dara Denton RN - 05/28/2022 5:29 PM EST Pt to OR. * Dara Denton RN - 05/28/2022 5:08 PM EST Pt arrived from [facility] for obstructing kidney stone. Pt reports he went to the hospital for a fall and he was taken to the [facility] ER and found to have a BS of 46 per pt. [facility] Phone: [phone]) 903-433202-24-2023 Hospital course Narrative* Rosales Singh MD - 06/04/2022 3:47 PM EST Images from the original note were not included. [facility] Office: [phone] Chris Osman DO, Terrence Johns DO, Stefani Augustin DO, Jaspreet Mosley DO, Surekha Batista MD, Adrienne Means MD, Rosales Singh MD, Caitlyn Benz MD, Kt Gay MD, Vikki Adorno MD, Abdoul Camargo MD, Cathy Farooq MD, Zhanna Portillo MD, Jarocho Real DO, Mark Cade MD, Julianna Wallace MD, Chepe Cordova DO, Love Hess MD, Deja Guevara DO, Isiah Chavez MD, Orquidea Schneider MD, Shaunna Freitas HOUSE MOVING SUPERVISOR, Sri Weiner HOUSE MOVING SUPERVISOR, Chelsea Kulkarni HOUSE MOVING SUPERVISOR, Carleen Paiz SOCIAL WORK FACULTY MEMBER, Crispin Bey HOUSE MOVING SUPERVISOR, Edy HOUSE MOVING SUPERVISOR, Catie Bryant HOUSE MOVING SUPERVISOR, Shirlene Cha HOUSE MOVING SUPERVISOR, Favian Ji HOUSE MOVING SUPERVISOR, Gillian Valles PA-C, Yesenia Espino HOUSE MOVING SUPERVISOR, Amanda Pina HOUSE MOVING SUPERVISOR, Shana Ashford HOUSE MOVING SUPERVISOR, Ema Mason HOUSE MOVING SUPERVISOR, Karuna Moreira HOUSE MOVING SUPERVISOR, Calista Mendez CNP [facility] Discharge Summary Patient ID: Steven Walden : 1960 ACCOUNT: [id number] Patient Location : Patient's PCP: Darion Randle MD Admit Date: 05/28/2022 Discharge Date: 06/04/22 Length of Stay: 7 Code Status: Full Code Admitting Physician: No admitting provider for patient encounter. Discharge Physician: Rosales Singh MD Active Discharge Diagnosis : Primary Problem DAISY (acute kidney injury) ([facility]) Hospital Problems Active Hospital Problems Diagnosis Date Noted BRITTANY (generalized anxiety disorder) [F41.1] 06/03/2022 Priority: Medium Debility [R53.81] 06/01/2022 Priority: Medium DAISY (acute kidney injury) ([facility]) [N17.9] 05/28/2022 Priority: Medium ARF (acute renal failure) ([facility]) [N17.9] 05/28/2022 Priority: Medium Chronic kidney disease [N18.9] 05/28/2022 Priority: Medium Type 2 diabetes mellitus with stage 3a chronic kidney disease (HCC) [E11.22, N18.31] 05/28/2022 Priority: Medium Hyperlipidemia [E78.5] 05/28/2022 Priority: Medium Primary hypertension [I10] 05/28/2022 Priority: Medium Urinary tract obstruction by kidney stone [N20.0, N13.8] 05/28/2022 Priority: Medium Hydronephrosis of left kidney [N13.30] 05/28/2022 Priority: Medium Atrophy of right kidney [N26.1] 05/28/2022 Priority: Medium Left ureteral stone [N20.1] 05/28/2022 Priority: Medium Admission Condition: fair Discharged Condition: stable Hospital Stay: Hospital Course: Steven Walden is a 62 y.o. male who was admitted for the management of DAISY (acute kidney injury) ([facility]) , presented to ER with tremors , renal failure Patient was transferred from [facility] to [facility] where he presented with generalizedtremors , weakness and inability to walk. He was noted to have Acute renal failure with Creatinine of 8. CT abdomen plevis showed left nephrolithiasis, atrophic right kidney, acute kidney injury. Patient has underlying history of diabetes mellitus, CKD stage III, hypertension, hyperlipidemia. Patient has cystoscopy with stent placement. Creatinine is improving. He has underlying severe depression , Unemployed for many years , SHADE on CPAP, morbid Obesity. Patient underwent cystoscopy with coronary catheter insertion and left ureteral stent placement forleft ureteral stone. Urinary catheter was left in place until 06/02/2022. Patient's kidney function improved. Catheter was removed. He was also treated with IV fluids and bicarb infusion. Patient is Aldactone and lisinopril is on hold for planned he was advised to follow-up with urology and nephrology as outpatient. Patient has history of insulin-dependent diabetes mellitus on U-500 and takes 100 units twice dailyat home. Patient was having hypoglycemic events in the hospital and dose was decreased. Significant therapeutic interventions: Left ureteral stone s/p Cystoscopy, Coude catheter insertion and left ureteral stent placement - continue Flomax,Carballo catheter removed on 06/02/22. Follow outpatient with urology in 1 week. Acute kidney injury superimposed on chronic kidney disease stage III - treated with bicarb infusionand IV fluids, IV fluids. . Monitor creatinine. Lisinopril and aldactone on hold. KVO. Follow outpatient with Dr. Triplett retort loader. Type 2 diabetes mellitus - insulin dependent - on U500 ( 50 Units BID) -monitor blood sugar closely. Essential hypertension -well-controlled for now. Major depression - on Remeron, effexor, Rexulti ( dose adjustment for kidney function given neurologic side effects, change dose to home dose when kidney function improves ) Dyslipidemia Type 2 diabetes mellitus. Patient on U-500. Use 100 units 3 times daily with meals. Generalized debility and tremors from renal failure. PMNR following. Tremors - likely secondary to Psych medications - reports that medication ( Rexulti) was started few months before. Appreciate psych input. Dose changed to 2 mg daily. . Recommend propanolol foressential tremors. Significant Diagnostic Studies: Labs / Micro:/Radiology Recent Labs 06/02/22 0529 06/01/22 0508 05/31/22 0552 WBC 10.4 9.8 7.9 HGB 12.9* 12.5* 12.5* HCT 40.3* 38.3* 38.1* MCV 96.2 94.3 93.4 PLT 336 334 227 Labs Renal Latest Ref Rng & Units 06/04/2022 06/03/2022 06/02/2022 06/01/2022 05/31/2022 BUN 8 - 23 mg/dL 27(H) 26(H) 31(H) 40(H) 54(H) Cr 0.70 - 1.20 mg/dL 2.23(H) 2.05(H) 2.22(H) 2.52(H) 3.07(H) K 3.7 - 5.3 mmol/L 4.4 4.5 4.0 3.6(L) 3.8 Na 135 - 144 mmol/L 143 139 141 142 140 Lab Results Component Value Date ALT 19 05/30/2022 AST 24 05/30/2022 ALKPHOS 97 05/30/2022 BILITOT 0.3 05/30/2022 No results found for: TSHFT4, TSH No results found for: HAV, HEPAIGM, HEPBIGM, HEPBCAB, HBEAG, HEPCAB Lab Results Component Value Date/Time COLORU Yellow 05/28/2022 06:21 PM NITRU NEGATIVE 05/28/2022 06:21 PM GLUCOSEU NEGATIVE 05/28/2022 06:21 PM KETUA NEGATIVE 05/28/2022 06:21 PM UROBILINOGEN Normal 05/28/2022 06:21 PM BILIRUBINUR NEGATIVE 05/28/2022 06:21 PM Lab Results Component Value Date LABA1C 7.2 (H) 05/30/2022 Lab Results Component Value Date EAG 160 05/30/2022 Lab Results Component Value Date INR 1.0 05/28/2022 PROTIME 11.1 05/28/2022 XR CHEST PORTABLE Result Date: 05/29/2022 1. Mild cardiomegaly. Mild pulmonary vascular congestion. 2. Old granulomatous disease. 3. No confluent airspace consolidation. US RETROPERITONEAL COMPLETE Result Date: 05/28/2022 No stone, mass or hydronephrosis within the kidneys. Kidneys have normal size. MRI BRAIN WO CONTRAST Result Date: 06/02/2022 1. No acute intracranial abnormality. 2. Microangiopathic change. Consultations: Consults: Final Specialist Recommendations/Findings: IP CONSULT TO NEPHROLOGY IP CONSULT TO UROLOGY IP CONSULT TO RESPIRATORY CARE IP CONSULT TO IV TEAM IP CONSULT TO IV TEAM IP CONSULT TO PHYSICAL MEDICINE REHAB IP CONSULT TO PSYCHIATRY IP CONSULT TO RESPIRATORY CARE The patient was seen and examined on day of discharge and this discharge summary is in conjunction with any daily progress note from day of discharge. Discharge plan: Disposition: Acute rehab at [facility]. Physician Follow Up: Kevin Myles MD [address] [facility], [address] [facility] [address] Follow up in 1 week(s) follow up for definitive stone treatment Mane Triplett MD [address] [facility] [address] Schedule an appointment as soon as possible for a visit in 1 month(s) hospital follow up Requiring Further Evaluation/Follow Up POST HOSPITALIZATION/Incidental Findings: Diet: diabetic diet Activity: As tolerated. Instructions to Patient: Follow-up with nephrology and urology. Discharge Medications: Medication List START taking these medications cephALEXin 500 MG capsule Commonly known as: KEFLEX Take 1 capsule by mouth every 12 hours for 3 doses insulin regular human 500 UNIT/ML Sopn concentrated injection pen Commonly known as: humuLIN R U-500 KWIKPEN Inject 50 Units into the skin 2 times daily (with meals) Replaces: HumuLIN R 500 UNIT/ML concentrated injection vial propranolol 20 MG tablet Commonly known as: INDERAL Take 1 tablet by mouth 3 times daily tamsulosin 0.4 MG capsule Commonly known as: FLOMAX Take 1 capsule by mouth daily CHANGE how you take these medications brexpiprazole 2 MG Tabs tablet Commonly known as: REXULTI Take 1 tablet by mouth daily Start taking on: June 05, 2022 What changed: medication strength how much to take CONTINUE taking these medications allopurinol 100 MG tablet Commonly known as: ZYLOPRIM amLODIPine 10 MG tablet Commonly known as: NORVASC atorvastatin 20 MG tablet Commonly known as: LIPITOR Dulaglutide 0.75 MG/0.5ML Sopn gabapentin 300 MG capsule Commonly known as: NEURONTIN lamoTRIgine 200 MG tablet Commonly known as: LAMICTAL mirtazapine 30 MG tablet Commonly known as: REMERON omeprazole 40 MG delayed release capsule Commonly known as: PRILOSEC Symbicort 80-4.5 MCG/ACT Aero Generic drug: budesonide-formoterol venlafaxine 75 MG extended release capsule Commonly known as: EFFEXOR XR Ventolin HFA 108 (90 Base) MCG/ACT inhaler Generic drug: albuterol sulfate HFA vitamin D 1.25 MG (66412 UT) Caps capsule Commonly known as: ERGOCALCIFEROL STOP taking these medications ALPRAZolam 0.5 MG tablet Commonly known as: XANAX HumuLIN R 500 UNIT/ML concentrated injection vial Generic drug: insulin regular human Replaced by: insulin regular human 500 UNIT/ML Sopn concentrated injection pen lisinopril 20 MG tablet Commonly known as: PRINIVIL;ZESTRIL metoprolol tartrate 50 MG tablet Commonly known as: LOPRESSOR promethazine 12.5 MG tablet Commonly known as: PHENERGAN spironolactone 25 MG tablet Commonly known as: ALDACTONE Where to Get Your Medications These medications were sent to [facility] [address] [place] [address] - [phone] - F [phone] [place] [id number] brexpiprazole 2 MG Tabs tablet propranolol 20 MG tablet tamsulosin 0.4 MG capsule Information about where to get these medications is not yet available Ask your nurse or doctor about these medications cephALEXin 500 MG capsule insulin regular human 500 UNIT/ML Sopn concentrated injection pen Time Spent on discharge is 35 mins in patient examination, evaluation, counseling as well as medication reconciliation, prescriptions for required medications, discharge plan and follow up. Electronically signed by Rosales Singh MD 06/04/[address] Darion Randle MD for the opportunity to be involved in this patient's care. documented in this encounterB[facility] Work Phone: [phone] 266-343312-01-2022 NoteOrthopedic Surgery Subjective Follow-up of the Right Hand 03/15/22 Steven Walden is a 62 y.o. year old [id number] male presenting 2-1/2 months status post closed reduction and application of small joint external fixator right fifth finger for PIP joint fracture dislocation. Noted and subsequent follow-up was that there was residual loss of congruency of the joint. Crepitus present time the patient reports no significant pain or issues. He has been able to demonstrate fairly decent motion. Patient History Past Surgical History: Procedure Laterality Date CHOLECYSTECTOMY COLONOSCOPY FINGER SURGERY Right 12/29/2021 small finger closed reduction PIP NASAL ENDOSCOPY Past Medical History: Diagnosis Date Asthma Depression Diabetic acidosis, type II (CMS/HCC) Kidney disease Neuropathy Sleep apnea Objective General: Body mass index is 44.31 kg/m???. No acute distress, comfortable Respiratory: Unlabored breathing with normal rate, no cough Cardiovascular: Warm well perfused extremities Psych: Appropriate mood behavior MSK: Examination of his right hand revealed no significant swelling. He in fact demonstrated fairly good motion of the digit able to come within 2.5 cm of the distal palmar flexion crease and demonstrated near full extension. Specific range of motion was documented MP joint 0/80, PIP 25/65 and at the DIP 10/40 Assessment/Plan Steven Walden is a 62 y.o. year old male with status post external fixator right small finger PIP joint fracture dislocation doing reasonably well. I did indicate the patient had pain to the digit the best option would be to consider definitive fusion. At this time we will follow-up in as-needed basis.[facility]11-03-2022 NoteOrthopedic Surgery Subjective Follow-up of the Right Hand (Closed reduction on 12/29/21 small finger PIP) 02/11/22 Steven Walden is a 62 y.o. male presenting for 6 weeks postop evaluation of right fifth finger PIP joint fracture dislocation status post external fixation. the patient reports about 10 days ago his volar pin loosened and fell out while he was taking a nap. He denies seeing purulence or drainage from the pin site. He continues to have some pain at the fracture site which is well controlled by pain medication. Patient denies new injury to the finger. Patient History Past Surgical History: Procedure Laterality Date CHOLECYSTECTOMY COLONOSCOPY FINGER SURGERY Right 12/29/2021 small finger closed reduction PIP NASAL ENDOSCOPY Past Medical History: Diagnosis Date Asthma Depression Diabetic acidosis, type II (CMS/HCC) Kidney disease Neuropathy Sleep apnea Objective General: Body mass index is 45.5 kg/m???. No acute distress, comfortable Respiratory: Unlabored breathing with normal rate, no cough Cardiovascular: Warm well perfused extremities Psych: Appropriate mood behavior physical exam of the right upper extremity: Ex-Fix pin sites clean, dry, and intact without drainage or purulence. Minimal tenderness to palpation over the PIP with obvious deformity of the finger. Sensation intact to light touch in ulnar and radial distributions. Flexion to PIP intact. 2+ radial pulse. Imaging x-rays obtained in clinic today demonstrating displacement of the fracture at the articular surface. hardware intact without signs of failure. Assessment/Plan Steven Walden is a 62 y.o. male right fifth finger PIP fracture dislocation status post closed reduction and percutaneous Ex-Fix. articular surface no longer in adequate alignment with joint. Discussed need for possible PIP fusion of the joint due to Loss of congruency of the joint surface. Right hand pain - Ex-Fix removed in clinic today - discussed operative treatment of PIP fusion with patient. we will discuss more in depth at follow-up in 4 weeks -Return to clinic in 4 weeks KARI CODY MD Orthopedic Surgery, PGY-1 Ortho Pager [phone] 02/11/22 2:24 PM By using the attestations below, the signing clinician agrees that I have read and verify that the documentation has been personally reviewed by me and ensure that the documentation accurately reflects the encounter. GC: I personally saw this patient on the day of the encounter, performed the [place] portion(s) of the service and participated in the management and confirm the resident's documentation. Please note there may be an additional personal documentation from me.[facility]10-01-2022 Note Orthopedic Surgery Subjective Post-op of the Right Little Finger 01/15/22 Steven Walden is a 61 y.o. year old xpycg-[id number] male presenting 10 days status post closed reduction and application of small joint external fixator to his right small finger having sustained a fracture dislocation of the PIP joint, date of surgery 12/29/2021. Patient reports he is doing well with no significant pain. Patient History Past Surgical History: Procedure Laterality Date CHOLECYSTECTOMY COLONOSCOPY NASAL ENDOSCOPY Past Medical History: Diagnosis Date Asthma Depression Kidney disease Neuropathy Sleep apnea Objective General: Body mass index is 43.75 kg/m???. No acute distress, comfortable Respiratory: Unlabored breathing with normal rate, no cough Cardiovascular: Warm well perfused extremities Psych: Appropriate mood behavior MSK: Examination of his digit revealed that the pin sites were clean and intact. There was minimal swelling, no signs of infection. He was assessed to be neurovascular intact. Assessment/Plan Steven Walden is a 61 y.o. year old male with status post closed reduction and percutaneous Ex-Fix of a fracture dislocation PIP joint right small finger. Patient instructed in pin site care. He will be reassessed again in 5 weeks radiographs taken of the right small finger plans to remove the fixator. [facility]09-20-2022 NotePt dc with to home in wheelchair. given two prescriptions for IBU and norco to take to local pharmacy. All belongings given to Pt and .[facility]09-20-2022 NotePatient: Steven Walden Procedure Summary Date: 12/29/21 Room / Location: [address] [facility] OR Anesthesia Start: 1405 Anesthesia Stop: 1455 Procedure: PERCUATNEOUS ASSISTED CLOSED REDUCTION RIGHT SMALL FINGER AND EXTERNAl FIXATION (Right: Little Finger) Diagnosis: Finger injury, right, initial encounter (Finger injury, right, initial encounter [S69.91XA]) Surgeons: Babar Schmidt MD Responsible Provider: Sharon Alvarez MD Anesthesia Type: MAC ASA Status: 4 Anesthesia Type: MAC Vitals Value Taken Time BP 142/78 12/29/21 1510 Temp 36.3 ???C (97.3 ???F) 12/29/21 1455 Pulse 66 12/29/21 1510 Resp 15 12/29/21 1510 SpO2 95 % 12/29/21 1510 Anesthesia Post Evaluation Patient location during evaluation: PACU Patient participation: complete - patient participated Level of consciousness: awake and alert Pain score: 0 Pain management: satisfactory to patient Airway patency: patent Cardiovascular status: acceptable Respiratory status: acceptable Hydration status: acceptable No notable events documented.[facility]09-20-2022 Note Peripheral Block Patient location during procedure: pre-op Start time: 12/29/2021 1:21 PM End time: 12/29/2021 1:34 PM Reason for block: at surgeon's request Staffing Performed: anesthesiologist Anesthesiologist: Sharon Alvarez MD Preanesthetic Checklist Completed: patient identified, IV checked, site marked, risks and benefits discussed, surgical consent, monitors and equipment checked, pre-op evaluation and timeout performed Peripheral Block Patient position: sitting Prep: ChloraPrep Patient monitoring: continuous pulse ox Block type: axillary Laterality: right Injection technique: single-shot Guidance: ultrasound guided Needle Needle type: short-bevel Needle gauge: 22 G Needle length: 4 in Needle localization: ultrasound guidance Medications Administered Midazolam (VERSED) IV, 2 mg fentaNYL (SUBLIMAZE) IV, 50 mcg bupivacaine HCl (Marcaine) 0.5 % (5 mg/mL) injection, 150 mg Assessment Injection assessment: negative aspiration for heme, no paresthesia on injection, incremental injection and local visualized surrounding nerve on ultrasound Paresthesia pain: none Heart rate change: no[facility] NotePatient: Steven Walden Procedure Information Date/Time: 12/29/21 1315 Procedures: ORIF, FINGER, EXTERNAL FIXATION (Right: Little Finger) - C-ARM, biomet, Open reduction and internal fixation versus closed reduction, possible ex fix placement, possible CRPP and all other indicated procedures CLOSED REDUCTION, FINGER, WITH INTERNAL FIXATION (Right: Little Finger) Location: [address] Surgeons: Babar Schmidt MD Relevant Problems No relevant active problems Clinical information reviewed: Tobacco Allergies Meds Med Hx Surg Hx Fam Hx Soc Hx Physical Exam Airway Mallampati: III Cardiovascular - normal exam Rhythm: regular Rate: normal Dental - normal exam Pulmonary Abdominal (+) obese Other findings: Supermorbid obesity, obstructive sleep apnea, diabetes. Pt. Is near dyspneic lying in bed speaking to me. Anesthesia Plan ASA 4 regional The patient is not a current smoker. Patient was previously instructed to abstain from smoking on day of procedure. Patient did not smoke on day of procedure. intravenous induction Postoperative administration of opioids is intended. Anesthetic plan and risks discussed with patient and spouse. Plan discussed with CAA and medical student. [facility] Note Attestation signed by Citlaly Daniel MD at 12/25/2021 1:52 PM I personally saw and examined the patient on the same date of service as resident. I discussed the findings and therapeutic plan with the resident. I agree with the documentation, except for any edits/updates below. Teaching Physician's Revisions: None Orthopedic Surgery Subjective Pain of the Right Hand 12/25/21 Steven Walden is a 61 y.o. year old male presenting for evaluation of his right small finger. Patient states that he fell yesterday morning while tying his shoes and taking most of the weight on small finger. Afterwards he states that he immediately felt pain and noticed swelling and went to an urgent care where x-rays were taken and showed a fracture at the base of the second phalanx of the right small finger. Patient denies numbness or tingling. Patient History Past Surgical History: Procedure Laterality Date CHOLECYSTECTOMY COLONOSCOPY NASAL ENDOSCOPY Past Medical History: Diagnosis Date Asthma Depression Kidney disease Neuropathy Sleep apnea Objective General: Body mass index is 43.75 kg/m???. No acute distress, comfortable Respiratory: Unlabored breathing with normal rate, no cough Cardiovascular: Warm well perfused extremities Psych: Appropriate mood behavior Right Hand: Inspection- no ecchymosis, no erythema, moderate swelling on the volar surface of right small finger, volar displacement of the right small finger noted distal to the PIP Tender to palpation over radial, ulnar and volar aspect of the right small finger AIN/PIN/U motor intact Patient unable to fully flex at the PIP or DIP of the right small finger due to swelling and pain Sensation: intact over median, ulnar, and radial nerve distributions Cardiovascular: Well-perfused digits Assessment/Plan Steven Walden is a 61 y.o. year old male with a volarly displaced P2 base fracture of right small finger Finger injury, right, initial encounter -Discussed the risks versus benefits of closed versus open reduction with possible Ex-Fix application versus CRPP of the right small finger with the patient and his in detail and answered all questions. The patient demonstrated good understanding and opted to schedule surgery with Dr. Schmidt on Tuesday at 1230. -Verbal and informed consent obtained -Preoperative labs ordered -Preop we will call the patient on Tuesday for a report time for Tuesday -Patient to be n.p.o. at midnight on Tuesday Derick Hughes MD Orthopaedic Surgery PGY-1 12/25/21 1:21 PM By using the attestations below, the signing clinician agrees that I have read and verify that the documentation has been personally reviewed by me and ensure that the documentation accurately reflects the encounter. GC: I personally saw this patient on the day of the encounter, performed the [place] portion(s) of the service and participated in the management and confirm the resident's documentation. Please note there may be an additional personal documentation from me.[facility] Diagnosis DAISY (acute kidney injury) (HCC)- Primary Acute kidney failure, unspecified Left ureteral stone Acute renal failure with acute cortical necrosis (HCC) Acute kidney failure with lesion of renal cortical necrosis ARF (acute renal failure) (HCC) Acute kidney failure, unspecified Chronic kidney disease Chronic kidney disease, unspecified Type 2 diabetes mellitus with stage 3a chronic kidney disease (HCC) Hyperlipidemia Other and unspecified hyperlipidemia Primary hypertension Unspecified essential hypertension Urinary tract obstruction by kidney stone Calculus of kidney Hydronephrosis of left kidney Hydronephrosis Atrophy of right kidney Renal sclerosis, unspecified Left ureteral stone Debility Debility, unspecified BRITTANY (generalized anxiety disorder) Generalized anxiety disorder Ureteral stone Calculus of ureter documented in this encounter [employer] Phone: evaluation note* Diagnosis DAISY (acute kidney injury) (HCC)- Primary Acute kidney failure, unspecified Acute kidney injury superimposed on CKD (HCC) Pyelonephritis Pyelonephritis, unspecified Left ureteral stone Chronic kidney disease Chronic kidney disease, unspecified Type 2 diabetes mellitus with stage 3a chronic kidney disease (HCC) Hyperlipidemia Other and unspecified hyperlipidemia Primary hypertension Unspecified essential hypertension BRITTANY (generalized anxiety disorder) Generalized anxiety disorder Major depressive disorder, recurrent, moderate (HCC) Major depressive disorder, recurrent episode, moderate Acute kidney injury superimposed on CKD (HCC) Bandemia Pyelonephritis Pyelonephritis, unspecified Emphysematous cystitis Other specified types of cystitis Hyponatremia Hyposmolality and/or hyponatremia Dependence on renal dialysis (HCC) Renal dialysis status Metabolic acidosis Acidosis documented in this encounter [employer] Phone: [email or web address] note* Diagnosis Debility- Primary Debility, unspecified Debility Debility, unspecified documented in this encounter [employer] Phone: [email or web address] noteNo InformationNort [place] Other Evaluation noteNo assessment information available [facility] Work Phone: Evaluation note* Diagnosis Onset Date Resolution Status Acute anxiety acute [facility] Work Phone: Evaluation note* Diagnosis Onset Date Resolution Status Acute anxiety acute Major depression acute [facility] Work Phone: H[place] general Narrative - Reported* Type Description Date Medical History diabetes mellitus Medical History edema Medical History kidney disease, stage 3 Medical History hypertension Medical History Charcot foot Medical History Sleep apnea Medical History Kindey stone in 1989, passed Medical History KIDNEY FAILURE Medical History GOUT Medical History ASTHMA Surgical History heart catheterization [place] 2016 Surgical History gallbladder 2010 Surgical History egd 2020 Surgical History colonoscopy 2020 Surgical History PORT IN CHEST 2022 Hospitalization History see above Hospitalization History [facility] 05/2022 [facility] Other History general Narrative - Reported* Type Description Date Medical History diabetes mellitus Medical History edema Medical History kidney disease, stage 3 Medical History hypertension Medical History Charcot foot Medical History Sleep apnea Medical History Kindey stone in 1989, passed Medical History KIDNEY FAILURE Medical History GOUT Medical History ASTHMA Surgical History heart catheterization at [facility] 2016 Surgical History gallbladder 2011 Surgical History egd 2020 Surgical History colonoscopy 2020 Surgical History PORT IN CHEST 2022 Hospitalization History see above Hospitalization History [facility] X3 TIMES 05/2022 [facility] Other Summary Purpose Family History No Family History Records FoundNo Family History Records FoundNo Family History Records FoundNo Family History Records FoundNo Family History Records FoundNo Family History Records FoundNo Family History Records FoundNo Family History Records Found Advance Directives No Advanced Directives Records FoundLatest Code Status on File Code Status Date Activated Date Inactivated Comments Full Code 05/28/2022 4:26 PM Latest Code Status on File Code Status Date Activated Date Inactivated Comments Full Code 06/04/2022 8:52 PM Full Code 05/28/2022 4:26 PM 06/04/2022 8:44 PM Latest Code Status on File Code Status Date Activated Date Inactivated Comments Full Code 06/20/2022 6:54 AM Full Code 06/04/2022 8:52 PM 06/11/2022 3:21 PM Full Code 05/28/2022 4:26 PM 06/04/2022 8:44 PM Latest Code Status on File Code Status Date Activated Date Inactivated Comments Full Code 07/02/2022 6:59 PM Full Code 06/30/2022 3:33 PM 07/02/2022 6:59 PM Cont code status as per acute but confirm with patient/family Full Code 06/20/2022 6:54 AM 06/30/2022 3:28 PM Full Code 06/04/2022 8:52 PM 06/11/2022 3:21 PM Latest Code Status on File Code Status Date Activated Date Inactivated Comments Full Code 07/15/2022 1:19 AM 07/19/2022 9:10 PM Code Status History Code Status Date Activated Date Inactivated Comments Full Code 07/02/2022 6:59 PM 07/08/2022 3:13 PM Full Code 06/30/2022 3:33 PM 07/02/2022 6:59 PM Cont code status as per acute but confirm with patient/family Full Code 06/20/2022 6:54 AM 06/30/2022 3:28 PM Full Code 06/04/2022 8:52 PM 06/11/2022 3:21 PM Advance Directive Response Recorded Date/ Time Advance Directives No December 7:59am Advance Directive Response Recorded Date/ Time Advance Directives No December 6:59am Reason for Referral Specialty Diagnoses / Procedures Referred By Mark t Referred To Contact Occupational Therapy Diagnoses Physical deconditioning Marcus Yepez MD [address] [place] [address] [facility] Occupation [address] [address] Referral ID Status Reason Start Date Expiration Date V isits Requested Visits Authorized [id number] Open Specialty Services Required 06/11/2022 06/11/2023 1 1 Scheduling Instructions [facility] - Occupational Therapy [address] [place] [id number] Please call within 48 hours to schedule your appointment. Comments Diagnosis: Debility sec to obstructive nephrolithiasis status post ureteral stent Precautions: Tremors Length: 3 times a week for 4 weeks OT: Active assisted active range of motion, mild general condition exercises, ADL evaluation skills, adaptive equipment, home exercise program, family training The patient can be scheduled with any member of the group, including the provider with the first available appointments. Specialty Diagnoses / Procedures Referred By Mark t Referred To Contact Physical Therapist / Physical Therapy Diagnoses Physical deconditioning Marcus Yepez MD [address] [place] [address] [address] Referral ID Status Reason Start Date Expiration Date V isits Requested Visits Authorized [id number] Open Specialty Services Required 06/11/2022 06/11/2023 1 1 Scheduling Instructions [facility] - Physical [address] , [address] [id number] Please call within 48 hours to schedule your appointment. Comments Diagnosis: Debility sec to obstructive nephrolithiasis status post ureteral stent Precautions: Tremors Length: 3 times a week for 4 weeks Physical therapy: Active assisted active range of motion, mild general condition exercises, transfer training, ambulation training best assistive device, step training, family training, home exercise program The patient can be scheduled with any member of the group, including the provider with the first available appointments. Specialty Diagnoses / Procedures Referred By Mark nash Referred To Contact Physical Therapist Diagnoses Debility Shelley Huggins MD [address] [phone] Referral ID Status Reason Start Date Expiration Date V isits Requested Visits Authorized [id number] Open Specialty Services Required 07/08/2022 01/04/2023 1 1 Scheduling Instructions Patient with debility secondary to UTI and renal failure. Will need continuation of physical therapy after discharge from [facility]. Question Answer Reason For External Referral? Location Comments The patient can be scheduled with any member of the group, including the provider with the first available appointments. Chief Complaint and Reason for Visit Chief Complaint sob tremors Chief Complaint sob tremors anxiety Reason for Visit Acute anxiety Chief Complaint sob tremors anxiety Sent by Reason for Visit Acute anxiety Major depression Additional Source Comments (unrecognized sect ion and content) No Status Records FoundNo Status Records FoundNo Status Records FoundNo Status Records FoundNo Status Records FoundNo Status Records FoundNo Status Records FoundNo Status Records Found INFORMATION SOURCE (unrecogn ized section and content) DATE CREATED AUTHOR 09/28/2017 [facility] DATE CREATED AUTHOR AUTHOR'S ORGANIZ ATION 07/12/2022 [facility] DATE CREATED AUTHOR AUTHOR'S ORGANIZ ATION 07/21/2022 [facility] DATE CREATED AUTHOR AUTHOR'S ORGANIZ ATION 08/23/2022 [facility] DATE CREATED AUTHOR AUTHOR'S ORGANIZ ATION 09/17/2022 [facility] DATE CREATED AUTHOR AUTHOR'S ORGANIZ ATION 09/25/2022 [facility] DATE CREATED AUTHOR AUTHOR'S ORGANIZ ATION 04/20/2023 [facility] DATE CREATED AUTHOR AUTHOR'S ORGANIZ ATION 04/21/2023 [facility] Reason for Visit (unrecogniz ed section and content) Specialty Diagnoses / Procedures Referred By Mark nash Referred To Contact Diagnoses Acute renal failure (ARF) (HCC) ARF (acute renal failure) (HCC) ARF Stvz Car 2- Stepdown [address] [place] [address] [facility] [address] [place] [address] Referral ID Status Reason Start Date Expiration Date Visits Re quested Visits Authorized [id number] 1 1 Reason Comments Fall Fever Flank Pain Specialty Diagnoses / Procedures Referred By Mark nash Referred To Contact Diagnoses Pyelonephritis DAISY (acute kidney injury) (HCC) Acute kidney injury superimposed on CKD (HCC) Stvz 3b Renal/Med Surg [facility] [place] [address] [facility] [address] [place] [address] Referral ID Status Reason Start Date Expiration Date Visits Re quested Visits Authorized [id number] 1 1 Ordered Prescriptions (unrec ognized section and content) Prescription Sig Dispensed Refills Start Date End Da te propranolol (INDERAL) 20 MG tablet Take 1 tablet by mouth 3 times daily 90 tablet 3 06/04/2022 insulin regular human (HUMULIN R U-500 KWIKPEN) 500 UNIT/ML SOPN concentrated injection pen Inject 50 Units into the skin 2 times daily (with meals) 0 06/04/2022 brexpiprazole (REXULTI) 2 MG TABS tablet Take 1 tablet by mouth daily 30 tablet 0 06/05/2022 tamsulosin (FLOMAX) 0.4 MG capsule Take 1 capsule by mouth daily 30 capsule 3 06/04/2022 cephALEXin (KEFLEX) 500 MG capsule Take 1 capsule by mouth every 12 hours for 3 doses 3 capsule 0 06/03/2022 06/05/2022 insulin regular human (HUMULIN R U-500 KWIKPEN) 500 UNIT/ML SOPN concentrated injection pen Inject 85 Units into the skin 2 times daily (with meals) 0 06/03/2022 06/04/2022 Prescription Sig Dispensed Refills Start Date End Da te insulin regular human (HUMULIN R U-500 KWIKPEN) 500 UNIT/ML SOPN concentrated injection pen Inject 10 Units into the skin 2 times daily (with meals) F/u with PCP for further adjustment, monitor gluc 1 each 0 06/11/2022 07/11/2022 tamsulosin (FLOMAX) 0.4 MG capsule Take 1 capsule by mouth daily 30 capsule 3 06/11/2022 propranolol (INDERAL) 20 MG tablet Take 1 tablet by mouth 3 times daily 90 tablet 1 06/11/2022 Handicap Ravin [facility] by Does not apply route Duration: 3 months / Dx:Amb difficulty 1 each 0 06/11/2022 Ergocalciferol (VITAMIN D) 25152 units CAPS Take 50,000 Units by mouth once a week for 4 doses 4 capsule 0 06/14/2022 07/06/2022 pantoprazole (PROTONIX) 40 MG tablet Take 1 tablet by mouth every morning (before breakfast) 30 tablet 0 06/11/2022 budesonide-formoterol (SYMBICORT) 80-4.5 MCG/ACT AERO Inhale 2 puffs into the lungs in the morning and 2 puffs in the evening. 10.2 g 3 06/11/2022 brexpiprazole (REXULTI) 1 MG TABS tablet Take 1 tablet by mouth daily 30 tablet 1 06/11/2022 venlafaxine (EFFEXOR XR) 150 MG extended release capsule Take 1 capsule by mouth daily 30 capsule 3 06/11/2022 Prescription Sig Dispensed Refills Start Date End Da te cefepime (MAXIPIME) infusion Infuse 2,000 mg intravenously three times a week for 6 doses Compound per protocol 12 g 0 06/25/2022 07/08/2022 Prescription Sig Dispensed Refills Start Date End Da te Blood Pressure Monitor KIT Please check your blood pressure at least once daily (around the same time each day). 1 kit 0 07/08/2022 Insulin Pen Needle 32G X 6 MM [facility] Use one needle for each insulin injection 30 each 0 07/08/2022 insulin glargine (LANTUS SOLOSTAR) 100 UNIT/ML injection pen Inject 25 Units into the skin nightly 5 Adjustable Dose Pre-filled Pen Syringe 0 07/08/2022 omeprazole (PRILOSEC) 40 MG delayed release capsule Take 1 capsule by mouth daily 30 capsule 0 07/08/2022 tamsulosin (FLOMAX) 0.4 MG capsule Take 1 capsule by mouth daily 30 capsule 0 07/08/2022 polyethylene glycol (GLYCOLAX) 17 g packet Take 17 g by mouth daily as needed for Constipation 0 07/08/2022 allopurinol (ZYLOPRIM) 100 MG tablet Take 1 tablet by mouth daily 30 tablet 0 07/08/2022 fluticasone (FLONASE) 50 MCG/ACT nasal spray 1 spray by Each Nostril route daily 0 07/09/2022 propranolol (INDERAL) 20 MG tablet Take 1 tablet by mouth 3 times daily 90 tablet 0 07/08/2022 REXULTI 2 MG TABS tablet Take 1 tablet by mouth daily 30 tablet 0 07/08/2022 atorvastatin (LIPITOR) 20 MG tablet Take 1 tablet by mouth nightly 30 tablet 0 07/08/2022 venlafaxine (EFFEXOR XR) 150 MG extended release capsule Take 1 capsule by mouth daily 30 capsule 0 07/08/2022 mirtazapine (REMERON) 30 MG tablet Take 1 tablet by mouth nightly 30 tablet 0 07/08/2022 lamoTRIgine (LAMICTAL) 200 MG tablet Take 1 tablet by mouth daily 30 tablet 0 07/08/2022 gabapentin (NEURONTIN) 300 MG capsule Take 1 capsule by mouth daily for 30 days. 30 capsule 0 07/08/2022 08/07/2022 budesonide-formoter ol (SYMBICORT) 80-4.5 MCG/ACT AERO Inhale 2 puffs into the lungs in the morning and 2 puffs in the evening. 10.2 g 0 07/08/2022 acetaminophen (TYLENOL) 325 MG tablet Take 2 tablets by mouth every 6 hours as needed for Pain 0 07/08/2022 Scheduled Active and Recently Administ ered Medications (unrecognized section and content) Medication Order 06/02/2022 06/03/2022 06/04/2022 amLODIPine (NORVASC) tablet 10 mg 10 mg, Oral, DAILY, First dose on 05/29/22 at 1000, Until Discontinued 08 (Given - Provider: Amanda Celestin RN) 0904 (Given - Provider: Amanda Celestin RN) 0835 (Given - Provider: Rakesh Knutson RN) atorvastatin (LIPITOR) tablet 20 mg 20 mg, Oral, NIGHTLY, First dose on 05/29/22 at 2100, Until Discontinued 2133 (Given - Provider: Desean Kitchen RN) 2034 (Given - Provider: Kirk Street RN) 2100 (Due) brexpiprazole (REXULTI) tablet 2 mg 2 mg, Oral, DAILY, First dose (after last modification) on Tue06/01/22 at 0900, Until Discontinued 0818 (Given - Provider: Amanda Celestin RN) 1044 (Given - Provider: Amanda Celestin RN) 0835 (Given - Provider: Rakesh Knutson RN) budesonide-formoterol (SYMBICORT) 80-4.5 MCG/ACT inhaler 2 puff 2 puff, Inhalation, 2 TIMES DAILY, First dose on Tue05/29/22 at 1000, Until Discontinued, Rinse mouth out with water (without swallowing) after every dose. 1249 (Given - Provider: Alice Gonzalez RCP)2014 (Given - Provider: Jerome Cooley RCP) 0744 (Given - Provider: Caitlin Covington RCP)2026 (Given - Provider: Kevin Cunningham RCP) 0814 (Given - Provider: Shivam Higginbotham RCP)2007 (Not Given - Provider: Perla Ware RCP - Reason: Patient not available - Comment: not in room) cephALEXin (KEFLEX) capsule 500 mg 500 mg, Oral, EVERY 12 HOURS SCHEDULED (2 times per day), 10 doses, First dose on Tue05/31/22 at 1045, Last dose on Tue06/04/22 at 2100, Antimicrobial Indications: Urinary Tract Infection, UTI duration of therapy: 5 days 0830 (Given - Provider: Amanda Celestin RN)213 (Given - Provider: Desean Kitchen RN) 0904 (Given - Provider: Amanda Celestin RN)2034 (Given - Provider: Kirk Street RN) 0835 (Given - Provider: Rakesh Knutson RN)2099 (Due) dextrose 50 % IV solution 25 g, IntraVENous, ONCE, 1 dose, On Tue05/28/22 at 1830 heparin (porcine) injection 5,000 Units 5,000 Units, SubCUTAneous, EVERY 8 HOURS SCHEDULED (3 times per day), First dose (after last modification) on Tue05/29/22 at 0600, Until Discontinued 0532 (Given - Provider: Kari Cox RN)1442 (Given - Provider: Amanda Celestin RN)2134 (Given - Provider: Desean Kitchen RN) 0614 (Given - Provider: Desean Kitchen RN)1344 (Given - Provider: Amanda Celestin RN)2034 (Given - Provider: [address], HAYDE) 0602 (Given - Provider: Gina Pradhan RN)1342 (Given - Provider: Rakesh Knutson RN)2200 (Due) insulin lispro (HUMALOG) injection vial 0-16 Units 0-16 Units, SubCUTAneous, 3 TIMES DAILY WITH MEALS, First dose on 05/29/22 at 1200, Until Discontinued, High Dose Corrective Algorithm Glucose: Dose: 70-199 No Insulin 200-249 4 Units 250-299 8 Units 300-349 12 Units Over 349 16 Units and notify physician 0810 (Not Given - Provider: Amanda Celestin RN - Reason: Order parameters not met - Comment: BG 183)1237 (Not Given - Provider: Amanda Celestin RN - Reason: Order parameters not met - Comment: BGH 181)1725 (Not Given - Provider: Amanda Celestin RN - Reason: Order parameters not met - Comment: BG 49) 0900 (Not Given - Provider: Amanda Celestin RN - Reason: Order parameters not met - Comment: BG 107)1206 (Given - Provider: Amanda Celestin RN)1658 (Not Given - Provider: mAanda Celestin RN - Reason: Order parameters not met - Comment: BG 181) 0726 (Not Given - Provider: Rakesh Knutson RN - Reason: Order parameters not met)1157 (Not Given - Provider: Rakesh Knutson RN - Reason: Order parameters not met)1738 (Given - Provider: Rakesh Knutson RN) insulin lispro (HUMALOG) injection vial 0-4 Units 0-4 Units, SubCUTAneous, NIGHTLY, First dose on 05/29/22 at 2100, Until Discontinued, If continuous tube feedings/TPN/NPO, give correction dose based on result, no reduction in dose. If eating or bolus tube feeding: Corrective Bedtime Algorithm Glucose: Dose: 70-299 No Insulin 300-349 4 Units Over 349 4 Units and notify physician 214 (Not Given - Provider: Desean Kitchen RN - Reason: Order parameters not met) 2026 (Not Given - Provider: Kirk Street RN - Reason: Order parameters not met) 2100 (Due) insulin regular human (humuLIN R U-500 KWIKPEN) 500 UNIT/ML concentrated injection pen 100 Units (CANCELED) 100 Units, SubCUTAneous, 3 TIMES DAILY WITH MEALS, First dose (after last modification) on Tue06/01/22 at 1700, Until Discontinued, THIS IS HIGHLY CONCENTRATED INSULIN!!!!! 0829 (Given - Provider: Amanda Celestin RN)1236 (Given - Provider: Amanda Celestin RN)1746 (Not Given - Provider: Amanda Celestin RN - Reason: Other - Comment: BG 49, 57 and 85, physician made aware) insulin regular human (humuLIN R U-500 KWIKPEN) 500 UNIT/ML concentrated injection pen 50 Units 50 Units, SubCUTAneous, 2 TIMES DAILY WITH MEALS, First dose (after last modification) on Tue06/04/22 at 1700, Until Discontinued, THIS IS HIGHLY CONCENTRATED INSULIN!!!!! 1633 (Given - Provid er: Rakesh Knutson RN) insulin regular human (humuLIN R U-500 KWIKPEN) 500 UNIT/ML concentrated injection pen 85 Units (CANCELED) 85 Units, SubCUTAneous, 2 TIMES DAILY WITH MEALS, First dose (after last modification) on Tue06/03/22 at 1700, Until Discontinued, THIS IS HIGHLY CONCENTRATED INSULIN!!!!! 1741 (Given - Provider: Amanda Celestin RN) 0816 (Held - Provider: Rakesh Knutson RN - Reason: Contraindicated - Comment: BS 79. Held per Dr. Singh) lamoTRIgine (LAMICTAL) tablet 200 mg 200 mg, Oral, DAILY, First dose on Tue05/29/22 at 1000, Until Discontinued 0830 (Given - Provider: Amanda Celestin RN) 0903 (Given - Provider: Amanda Celestin RN) 0835 (Given - Provider: Rakesh Knutson RN) lisinopril (PRINIVIL;ZESTRIL) tablet 20 mg 20 mg, Oral, DAILY, First dose on Tue05/29/22 at 1000, Until Discontinued 0900 (Automatically Held) 0900 (Automatically Held) 0900 (Automatically Held) metoprolol tartrate (LOPRESSOR) tablet 25 mg (CANCELED) 25 mg, Oral, 2 TIMES DAILY, First dose (after last modification) on Tue06/04/22 at 0900, Until Discontinued 09 (Given - Provid er: Rakesh Knutson RN) metoprolol tartrate (LOPRESSOR) tablet 50 mg (CANCELED) 50 mg, Oral, 2 TIMES DAILY, First dose on Tue05/29/22 at 1000, Until Discontinued 08 (Given - Provider: Amanda Celestin RN)2133 (Given - Provider: Desean Kitchen RN) 902 (Given - Provider: Amanda Celestin RN)2034 (Given - Provider: Kirk Street RN) mirtazapine (REMERON) tablet 30 mg 30 mg, Oral, NIGHTLY, First dose on Tue05/29/22 at 2100, Until Discontinued 2133 (Given - Provider: Desean Kitchen RN) 2034 (Given - Provider: Kirk Street RN) 2099 (Due) pantoprazole (PROTONIX) tablet 40 mg 40 mg, Oral, DAILY BEFORE BREAKFAST, First dose on Tue05/30/22 at 0700, Until Discontinued, Do not crush or break. 0533 (Given - Provider: Kari Cox RN) 09 (Given - Provider: Amanda Celestin RN) 0834 (Given - Provider: Rakesh Knutson RN) potassium bicarb-citric acid (EFFER-K) effervescent tablet 20 mEq 20 mEq, Oral, ONCE, 1 dose, On Tue06/01/22 at 1700, Do not chew or crush. Dissolve flavored tablets completely in 3 to 4 ounces of cold water; unflavored tablets may be dissolved in 3 to 4 ounces of cold juice. Patient to sip slowly over a 5 to 10 minute period. May further dilute if GI adverse effects occur. propranolol (INDERAL) tablet 20 mg 20 mg, Oral, 3 TIMES DAILY, First dose on Tue06/04/22 at 1530, Until Discontinued 163 (Given - Provid er: Rakesh Knutson RN)2099 (Due) sodium chloride flush 0.9 % injection 5-40 mL 5-40 mL, IntraVENous, EVERY 12 HOURS SCHEDULED (2 times per day), First dose on Tue05/28/22 at 2100, Until Discontinued, For Line Patency: Peripheral IV = 5 mL; Midline or Central Line = 10 mL/lumen. If following IV push medication, administer flush at same rate as the IV push. Flush volume is determined by type of infusion therapy being given. For non-viscous solutions use: Peripheral IV = 5 mL Midline or Central Line = 10 mL/lumen For viscous solutions (i.e. blood components, parenteral nutrition, contrast media, or after obtaining blood sample) use: Peripheral IV = 10 mL Midline or Central Line = 20 mL/lumen 08 (Given - Provider: Amanda Celestin RN)2145 (Not Given - Provider: Desean Kitchen RN - Reason: Other) 09 (Given - Provider: Amanda Celestin RN)2034 (Given - Provider: Kirk [address], HAYDE) 0838 (Given - Provider: Rakesh Knutson RN)2099 (Due) sodium chloride flush 0.9 % injection 5-40 mL 5-40 mL, IntraVENous, EVERY 12 HOURS SCHEDULED (2 times per day), First dose on Tue05/28/22 at 2100, Until Discontinued, For Line Patency: Peripheral IV = 5 mL; Midline or Central Line = 10 mL/lumen. If following IV push medication, administer flush at same rate as the IV push. Flush volume is determined by type of infusion therapy being given. For non-viscous solutions use: Peripheral IV = 5 mL Midline or Central Line = 10 mL/lumen For viscous solutions (i.e. blood components, parenteral nutrition, contrast media, or after obtaining blood sample) use: Peripheral IV = 10 mL Midline or Central Line = 20 mL/lumen, PACU only 08 (Given - Provider: Amanda Celestin RN)2145 (Given - Provider: Desean Kitchen RN) 09 (Given - Provider: Amanda Celestin RN)2035 (Not Given - Provider: Kirk Street RN - Reason: Other) 0838 (Given - Provider: Rakesh Knutson, HAYDE)2100 (Due) tamsulosin (FLOMAX) capsule 0.4 mg 0.4 mg, Oral, DAILY, First dose on Tue05/28/22 at 1900, Until Discontinued, Do not crush or break. 0819 (Given - Provider: Amanda Celestin RN) 09 (Given - Provider: Amanda Celestin RN) 0834 (Given - Provider: Rakesh Knutson RN) venlafaxine (EFFEXOR XR) extended release capsule 150 mg 150 mg, Oral, DAILY, First dose (after last modification) on Tue06/01/22 at 0900, Until Discontinued, Do not crush or break. 0819 (Given - Provider: Amanda Celestin RN) 09 (Given - Provider: Amanda Celestin RN) 0834 (Given - Provider: Rakesh Knutson RN) vitamin D (ERGOCALCIFEROL) capsule 50,000 Units 50,000 Units, Oral, WEEKLY, First dose (after last modification) on Tue05/31/22 at 0900, Until Discontinued PRN Medication Order 06/02/2022 06/03/2022 06/04/2022 0.9 % sodium chloride infusion IntraVENous, at 5-250 mL/hr, PRN, if patient receiving piggyback infusions and maintenance fluids are not ordered OR KVO fluids to protect IV site / prevent frequent line interruptions/ long duration, Starting on Tue05/28/22 at 1626, For piggyback infusion, administer at same rate as piggyback for a total of 25 mL. Enter 25 mL into dose field and piggyback rate into rate field of order. If piggyback is infusing at a rate less than 100 mL/hr, enter 25 mL into dose field and 100 mL/hr into rate field of order. For KVO fluids, enter rate of 20 mL/hr or less into rate field of order. 0.9 % sodium chloride infusion IntraVENous, at 5-250 mL/hr, PRN, if patient receiving piggyback infusions and maintenance fluids are not ordered OR KVO fluids to protect IV site / prevent frequent line interruptions/ long duration, Starting on Tue05/28/22 at 2019, For piggyback infusion, administer at same rate as piggyback for a total of 25 mL. Enter 25 mL into dose field and piggyback rate into rate field of order. If piggyback is infusing at a rate less than 100 mL/hr, enter 25 mL into dose field and 100 mL/hr into rate field of order. For KVO fluids, enter rate of 20 mL/hr or less into rate field of order., PACU only acetaminophen (TYLENOL) suppository 650 mg(Linked Group 1) 650 mg, Rectal, EVERY 6 HOURS PRN, Starting on Tue05/28/22 at 1626, Until Discontinued, Pain Mild (1-3), Fever, For temp greater than 100.4 F (38 C), Administer if oral route cannot be used. acetaminophen (TYLENOL) tablet 650 mg(Linked Group 1) 650 mg, Oral, EVERY 6 HOURS PRN, Starting on Tue05/28/22 at 1626, Until Discontinued, Pain Mild (1-3), Fever, For temp greater than 100.4 F (38 C), Maximum dose of acetaminophen is 4000 mg from all sources in 24 hours. albuterol sulfate HFA (PROVENTIL;VENTOLIN;PROAIR) 108 (90 Base) MCG/ACT inhaler 2 puff 2 puff, Inhalation, EVERY 6 HOURS PRN, Starting on 05/29/22 at 0934, Until Discontinued, Wheezing, Initiate RT Bronchodilator Protocol: Yes - Inpatient Protocol ALPRAZolam (XANAX) tablet 0.5 mg 0.5 mg, Oral, NIGHTLY PRN, Starting on 05/29/22 at 2100, Until Discontinued, Sleep dextrose 10 % infusion IntraVENous, at 100 mL/hr, CONTINUOUS PRN, if blood glucose remains LESS THAN 70 mg/dL after 2 dextrose 10% intravenous boluses or administration of glucagon, Starting on 05/29/22 at 1021, If blood glucose fails to stabilize after 2 dextrose 10% intravenous boluses or glucagon administration, start dextrose 10% infusion at 100 mL/hour and repeat blood glucose at 30 and 60 minutes. If blood glucose is GREATER THAN 70 mg/dL after 60 minutes, discontinue dextrose 10% infusion. dextrose bolus 10% 125 mL(Linked Group 2) 125 mL, IntraVENous, at 937.5 mL/hr, Administer over 8 Minutes, PRN, Other, Blood glucose 40 - 69 mg/dL and patient NOT ALERT or NPO, Starting on 05/29/22 at 1021, Repeat blood glucose in 15 minutes. If blood glucose remains LESS THAN 70 mg/dL, repeat treatment and recheck blood glucose in 15 minutes x 2. If using glycemic management system, dose as instructed per system. If blood glucose remains LESS THAN 70 mg/dL after 2 intravenous boluses start dextrose 10% at 100 mL/hour and notify provider. dextrose bolus 10% 250 mL(Linked Group 2) 250 mL, IntraVENous, at 937.5 mL/hr, Administer over 16 Minutes, PRN, Other, Blood glucose LESS THAN 40 mg/dL and patient NOT ALERT or NPO, Starting on 05/29/22 at 1021, Repeat blood glucose in 15 minutes. If blood glucose remains LESS THAN 70 mg/dL, repeat treatment and recheck blood glucose in 15 minutes x 2. If using glycemic management system, dose as instructed per system. If blood glucose remains LESS THAN 70 mg/dL after 2 intravenous boluses start dextrose 10% at 100 mL/hour and notify provider. glucagon (rDNA) injection 1 mg 1 mg, IntraMUSCular, PRN, Starting on 05/29/22 at 1021, Until Discontinued, Low blood sugar, Blood glucose less than 70 mg/dL and patient NOT ALERT or NPO and does not have IV access., After administration, attempt intravenous access and start D5W at 100 mL/hr. Repeat blood glucose in 15 minutes x2 and notify provider. glucose chewable tablet 16 g 16 g (4 tablet), Oral, PRN, Starting on 05/29/22 at 1021, Until Discontinued, Low blood sugar, If blood glucose is LESS THAN 70 mg/dL and patient is alert and tolerating oral. Give 4 tablets (16g) Repeat blood glucose in 15 minutes. If blood glucose is LESS THAN 70 mg/dL, repeat treatment and recheck blood glucose in 15 minutes x 2. If blood glucose remains LESS THAN 70 mg/dL, notify provider. HYDROcodone-acetaminophen (NORCO) 5-325 MG per tablet 1 tablet 1 tablet, Oral, EVERY 6 HOURS PRN, Starting on 05/31/22 at 1023, Until Discontinued, Pain Severe (7-10), Maximum dose of acetaminophen is 4000 mg from all sources in 24 hours. hyoscyamine (LEVSIN/SL) sublingual tablet 125 mcg 125 mcg, SubLINGual, EVERY 4 HOURS PRN, Starting on Tue05/28/22 at 1842, Until Discontinued, Cramping ondansetron (ZOFRAN) injection 4 mg(Linked Group 3) 4 mg, IntraVENous, EVERY 6 HOURS PRN, Starting on Tue05/28/22 at 1626, Until Discontinued, Nausea, Vomiting, Administer if oral route cannot be used. ondansetron (ZOFRAN-ODT) disintegrating tablet 4 mg(Linked Group 3) 4 mg, Oral, EVERY 8 HOURS PRN, Starting on Tue05/28/22 at 1626, Until Discontinued, Nausea, Vomiting sodium chloride flush 0.9 % injection 5-40 mL 5-40 mL, IntraVENous, PRN, Starting on Tue05/28/22 at 1626, Until Discontinued, Line Care, After every IV line use, For Line Patency: Peripheral IV = 5 mL; Midline or Central Line = 10 mL/lumen. If following IV push medication, administer flush at same rate as the IV push. Flush volume is determined by type of infusion therapy being given. For non-viscous solutions use: Peripheral IV = 5 mL Midline or Central Line = 10 mL/lumen For viscous solutions (i.e. blood components, parenteral nutrition, contrast media, or after obtaining blood sample) use: Peripheral IV = 10 mL Midline or Central Line = 20 mL/lumen sodium chloride flush 0.9 % injection 5-40 mL 5-40 mL, IntraVENous, PRN, Starting on Tue05/28/22 at 2019, Until Discontinued, Line Care, After every IV line use, For Line Patency: Peripheral IV = 5 mL; Midline or Central Line = 10 mL/lumen. If following IV push medication, administer flush at same rate as the IV push. Flush volume is determined by type of infusion therapy being given. For non-viscous solutions use: Peripheral IV = 5 mL Midline or Central Line = 10 mL/lumen For viscous solutions (i.e. blood components, parenteral nutrition, contrast media, or after obtaining blood sample) use: Peripheral IV = 10 mL Midline or Central Line = 20 mL/lumen, PACU only Linked Groups Order Group 1: acetaminophen (TYLENOL) tablet 650 mgJump to med 650 mg, Oral, EVERY 6 HOURS PRN, Starting on Tue05/28/22 at 1626, Until Discontinued, Pain Mild (1-3), Fever, For temp greater than 100.4 F (38 C)
Maximum dose of acetaminophen is 4000 mg from all sources in 24 hours.
Or acetaminophen (TYLENOL) suppository 650 mgJump to med 650 mg, Rectal, EVERY 6 HOURS PRN, Starting on Tue05/28/22 at 1626, Until Discontinued, Pain Mild (1-3), Fever, For temp greater than 100.4 F (38 C)
Administer if oral route cannot be used.
Group 2: dextrose bolus 10% 125 mLJump to med 125 mL, IntraVENous, at 937.5 mL/hr, Administer over 8 Minutes, PRN, Other, Blood glucose 40 - 69 mg/dL and patient NOT ALERT or NPO, Starting on 05/29/22 at 1021
Repeat blood glucose in 15 minutes. If blood glucose remains LESS THAN 70 mg/dL, repeat treatment and recheck blood glucose in 15 minutes x 2. If using glycemic management system, dose as instructed per system. If blood glucose remains LESS THAN 70 mg/dL after 2 intravenous boluses start dextrose 10% at 100 mL/hour and notify provider.
Or dextrose bolus 10% 250 mLJump to med 250 mL, IntraVENous, at 937.5 mL/hr, Administer over 16 Minutes, PRN, Other, Blood glucose LESS THAN 40 mg/dL and patient NOT ALERT or NPO, Starting on 05/29/22 at 1021
Repeat blood glucose in 15 minutes. If blood glucose remains LESS THAN 70 mg/dL, repeat treatment and recheck blood glucose in 15 minutes x 2. If using glycemic management system, dose as instructed per system. If blood glucose remains LESS THAN 70 mg/dL after 2 intravenous boluses start dextrose 10% at 100 mL/hour and notify provider.
Group 3: ondansetron (ZOFRAN-ODT) disintegrating tablet 4 mgJump to med 4 mg, Oral, EVERY 8 HOURS PRN, Starting on Tue05/28/22 at 1626, Until Discontinued, Nausea, Vomiting Or ondansetron (ZOFRAN) injection 4 mgJump to med 4 mg, IntraVENous, EVERY 6 HOURS PRN, Starting on Tue05/28/22 at 1626, Until Discontinued, Nausea, Vomiting
Administer if oral route cannot be used.
Scheduled Medication Order 06/09/2022 06/10/2022 06/11/2022 allopurinol (ZYLOPRIM) tablet 100 mg 100 mg, Oral, DAILY, First dose on 06/05/22 at 1415, Until Discontinued 0712 (Given - Provider: Alba Miller RN) 0740 (Given - Provider: Glenda Stinson RN) 0819 (Given - Provider: Thea Montes RN) atorvastatin (LIPITOR) tablet 20 mg 20 mg, Oral, NIGHTLY, First dose (after last modification) on Tue06/04/22 at 2115, Until Discontinued 2207 (Given - Provider: Priya Londono LPN) 2225 (Given - Provider: Priya Londono LPN) 2099 (Due) brexpiprazole (REXULTI) tablet 1 mg 1 mg, Oral, DAILY, First dose (after last modification) on Candace 06/10/22 at 0900, Until Discontinued 0739 (Given - Provider: Glenda Stinson RN)0850 (Canceled Entry - Provider: Glenda Stinson RN) 0819 (Given - Provider: Thea Montes RN) brexpiprazole (REXULTI) tablet 2 mg (CANCELED) 2 mg, Oral, DAILY, First dose (after last modification) on 06/05/22 at 0900, Until Discontinued 1251 (Given - Provider: Alba Miller RN) budesonide-formoterol (SYMBICORT) 80-4.5 MCG/ACT inhaler 2 puff 2 puff, Inhalation, 2 TIMES DAILY, First dose (after last modification) on 06/05/22 at 0800, Until Discontinued, Rinse mouth out with water (without swallowing) after every dose. 0911 (Given - Provider: Marsha Soliz)2017 (Given - Provider: Agnes Powell RCP) 0700 (Given - Provider: Prabha Gomez RCP)195 (Given - Provider: Maddy Abarca RCP) 0947 (Not Given - Provider: Eugenie Charles RCP - Reason: Patient not available)1999 (Due) cephALEXin (KEFLEX) capsule 500 mg (COMPLETED) 500 mg, Oral, EVERY 12 HOURS SCHEDULED (2 times per day), 10 doses, First dose (after last modification) on Tue06/04/22 at 2115, Last dose on Tue06/09/22 at 0900, Antimicrobial Indications: Urinary Tract Infection, UTI duration of therapy: 5 days 0712 (Given - Provider: Alba Miller RN) heparin (porcine) injection 5,000 Units 5,000 Units, SubCUTAneous, EVERY 8 HOURS SCHEDULED (3 times per day), First dose (after last modification) on Tue06/04/22 at 2200, Until Discontinued 0603 (Given - Provider: Gisselle Barry RN)1251 (Given - Provider: Alba Miller RN)2208 (Given - Provider: Priya Londono LPN) 0547 (Given - Provider: Stephania Corey RN)1351 (Given - Provider: Glenda Stinson RN)2226 (Given - Provider: Priya Londono LPN) 0551 (Given - Provider: Priya Londono LPN)1240 (Not Given - Provider: Thea Montes RN - Reason: Other - Comment: discharge)220 (Due) insulin lispro (HUMALOG) injection vial 0-16 Units 0-16 Units, SubCUTAneous, 3 TIMES DAILY WITH MEALS, First dose (after last modification) on Tue06/05/22 at 0800, Until Discontinued, High Dose Corrective Algorithm Glucose: Dose: 70-199 No Insulin 200-249 4 Units 250-299 8 Units 300-349 12 Units Over 349 16 Units and notify physician 0951 (Not Given - Provider: Alba Miller RN - Reason: Order parameters not met)1253 (Given - Provider: Alba Miller RN)1731 (Given - Provider: Alba Miller RN) 0740 (Given - Provider: Glenda Stinson RN)1301 (Given - Provider: Glenda Stinson RN)1639 (Given - Provider: Isha Mcdaniel RN) 0629 (Given - Provider: Priya Londono LPN)1107 (Given - Provider: Thea Montes, HAYDE)1700 (Due) insulin lispro (HUMALOG) injection vial 0-4 Units 0-4 Units, SubCUTAneous, NIGHTLY, First dose (after last modification) on Tue06/04/22 at 2115, Until Discontinued, If continuous tube feedings/TPN/NPO, give correction dose based on result, no reduction in dose. If eating or bolus tube feeding: Corrective Bedtime Algorithm Glucose: Dose: 70-299 No Insulin 300-349 4 Units Over 349 4 Units and notify physician 2058 (Not Given - Provider: Priya Londono LPN - Reason: Order parameters not met) 222 (Given - Provider: Priya Londono LPN) 2100 (Due) lamoTRIgine (LAMICTAL) tablet 200 mg 200 mg, Oral, DAILY, First dose (after last modification) on 06/05/22 at 0900, Until Discontinued 1251 (Given - Provider: Alba Miller RN) 0851 (Given - Provider: Glenda Stinson RN) 0820 (Given - Provider: Thea Montes RN) mirtazapine (REMERON) tablet 30 mg 30 mg, Oral, NIGHTLY, First dose (after last modification) on Tue06/04/22 at 2115, Until Discontinued 2210 (Given - Provider: Priya Londono LPN) 222 (Given - Provider: Priya Londono LPN) 2100 (Due) pantoprazole (PROTONIX) tablet 40 mg 40 mg, Oral, DAILY BEFORE BREAKFAST, First dose (after last modification) on 06/05/22 at 0700, Until Discontinued, Do not crush or break. 0603 (Given - Provider: Gisselle Barry RN) 0547 (Given - Provider: Stephania Corey RN) 0551 (Given - Provider: Priya Londono LPN) polyethylene glycol (GLYCOLAX) packet 17 g 17 g, Oral, DAILY, First dose on 06/05/22 at 0900, Until Discontinued 0951 (Not Given - Provider: Alba Miller RN - Reason: Patient/family refused) 0739 (Not Given - Provider: Glenda Stinson RN - Reason: Patient/family refused) 0821 (Not Given - Provider: Thea Montes RN - Reason: Patient/family refused) propranolol (INDERAL) tablet 20 mg 20 mg, Oral, 3 TIMES DAILY, First dose (after last modification) on Tue06/04/22 at 2115, Until Discontinued 0712 (Given - Provider: Alba Miller RN)1250 (Given - Provider: Alba Miller RN)2208 (Given - Provider: Priya Londono LPN) 0740 (Given - Provider: Glenda Stinson RN)1352 (Given - Provider: Glenda Stinson RN)2225 (Given - Provider: Priya Londono LPN) 0819 (Given - Provider: Thea Montes RN)1247 (Given - Provider: Thea Montes RN)2100 (Due) tamsulosin (FLOMAX) capsule 0.4 mg 0.4 mg, Oral, DAILY, First dose (after last modification) on 06/05/22 at 0900, Until Discontinued, Do not crush or break. 0712 (Given - Provider: Alba Miller RN) 0740 (Given - Provider: Glenda Stinson RN) 0819 (Given - Provider: Thea Montes, HAYDE) venlafaxine (EFFEXOR XR) extended release capsule 150 mg 150 mg, Oral, DAILY, First dose (after last modification) on 06/05/22 at 0900, Until Discontinued, Do not crush or break. 0712 (Given - Provider: Alba Miller RN) 0740 (Given - Provider: Glenda Stinson RN) 0819 (Given - Provider: Thea Montes RN) vitamin D (ERGOCALCIFEROL) capsule 50,000 Units 50,000 Units, Oral, WEEKLY, First dose (after last modification) on Tue06/07/22 at 0900, Until Discontinued PRN Medication Order 06/09/2022 06/10/2022 06/11/2022 acetaminophen (TYLENOL) tablet 650 mg 650 mg, Oral, EVERY 4 HOURS PRN, Starting on Tue06/04/22 at 2105, Until Discontinued, Pain Mild (1-3), Fever, Fever >100.5 F (38 C), Maximum dose of acetaminophen is 4000 mg from all sources in 24 hours. albuterol sulfate HFA (PROVENTIL;VENTOLIN;PROAIR) 108 (90 Base) MCG/ACT inhaler 2 puff 2 puff, Inhalation, EVERY 6 HOURS PRN, Starting on Tue06/04/22 at 2051, Until Discontinued, Wheezing, Initiate RT Bronchodilator Protocol: Yes - Inpatient Protocol ALPRAZolam (XANAX) tablet 0.5 mg 0.5 mg, Oral, NIGHTLY PRN, Starting on Tue06/04/22 at 2051, Until Discontinued, Sleep bisacodyl (DULCOLAX) suppository 10 mg 10 mg, Rectal, DAILY PRN, Starting on Tue06/04/22 at 2106, Until Discontinued, Constipation, TO BE GIVEN AFTER THERAPY COMPLETED FOR THE DAY dextrose 10 % infusion IntraVENous, at 100 mL/hr, CONTINUOUS PRN, if blood glucose remains LESS THAN 70 mg/dL after 2 dextrose 10% intravenous boluses or administration of glucagon, Starting on Tue06/04/22 at 2051, If blood glucose fails to stabilize after 2 dextrose 10% intravenous boluses or glucagon administration, start dextrose 10% infusion at 100 mL/hour and repeat blood glucose at 30 and 60 minutes. If blood glucose is GREATER THAN 70 mg/dL after 60 minutes, discontinue dextrose 10% infusion. dextrose bolus 10% 125 mL(Linked Group 1) 125 mL, IntraVENous, at 937.5 mL/hr, Administer over 8 Minutes, PRN, Other, Blood glucose 40 - 69 mg/dL and patient NOT ALERT or NPO, Starting on Tue06/04/22 at 2051, Repeat blood glucose in 15 minutes. If blood glucose remains LESS THAN 70 mg/dL, repeat treatment and recheck blood glucose in 15 minutes x 2. If using glycemic management system, dose as instructed per system. If blood glucose remains LESS THAN 70 mg/dL after 2 intravenous boluses start dextrose 10% at 100 mL/hour and notify provider. dextrose bolus 10% 250 mL(Linked Group 1) 250 mL, IntraVENous, at 937.5 mL/hr, Administer over 16 Minutes, PRN, Other, Blood glucose LESS THAN 40 mg/dL and patient NOT ALERT or NPO, Starting on Tue06/04/22 at 2051, Repeat blood glucose in 15 minutes. If blood glucose remains LESS THAN 70 mg/dL, repeat treatment and recheck blood glucose in 15 minutes x 2. If using glycemic management system, dose as instructed per system. If blood glucose remains LESS THAN 70 mg/dL after 2 intravenous boluses start dextrose 10% at 100 mL/hour and notify provider. glucagon (rDNA) injection 1 mg 1 mg, IntraMUSCular, PRN, Starting on Tue06/04/22 at 2051, Until Discontinued, Low blood sugar, Blood glucose less than 70 mg/dL and patient NOT ALERT or NPO and does not have IV access., After administration, attempt intravenous access and start D5W at 100 mL/hr. Repeat blood glucose in 15 minutes x2 and notify provider. glucose chewable tablet 16 g 16 g (4 tablet), Oral, PRN, Starting on Tue06/04/22 at 2051, Until Discontinued, Low blood sugar, If blood glucose is LESS THAN 70 mg/dL and patient is alert and tolerating oral. Give 4 tablets (16g) Repeat blood glucose in 15 minutes. If blood glucose is LESS THAN 70 mg/dL, repeat treatment and recheck blood glucose in 15 minutes x 2. If blood glucose remains LESS THAN 70 mg/dL, notify provider. HYDROcodone-acetaminophen (NORCO) 5-325 MG per tablet 1 tablet 1 tablet, Oral, EVERY 6 HOURS PRN, Starting on Tue06/04/22 at 2051, Until Discontinued, Pain Severe (7-10), Maximum dose of acetaminophen is 4000 mg from all sources in 24 hours. hyoscyamine (LEVSIN/SL) sublingual tablet 125 mcg 125 mcg, SubLINGual, EVERY 4 HOURS PRN, Starting on Tue06/04/22 at 2051, Until Discontinued, Cramping ondansetron (ZOFRAN) injection 4 mg(Linked Group 2) 4 mg, IntraVENous, EVERY 6 HOURS PRN, Starting on Tue06/04/22 at 2051, Until Discontinued, Nausea, Vomiting, Administer if oral route cannot be used. ondansetron (ZOFRAN-ODT) disintegrating tablet 4 mg(Linked Group 2) 4 mg, Oral, EVERY 8 HOURS PRN, Starting on Tue06/04/22 at 2051, Until Discontinued, Nausea, Vomiting senna (SENOKOT) tablet 17.2 mg 17.2 mg (2 tablet), Oral, DAILY PRN, Starting on Tue06/04/22 at 2105, Until Discontinued, Constipation, First line therapy for constipation Linked Groups Order Group 1: dextrose bolus 10% 125 mLJump to med 125 mL, IntraVENous, at 937.5 mL/hr, Administer over 8 Minutes, PRN, Other, Blood glucose 40 - 69 mg/dL and patient NOT ALERT or NPO, Starting on Tue06/04/22 at 2051
Repeat blood glucose in 15 minutes. If blood glucose remains LESS THAN 70 mg/dL, repeat treatment and recheck blood glucose in 15 minutes x 2. If using glycemic management system, dose as instructed per system. If blood glucose remains LESS THAN 70 mg/dL after 2 intravenous boluses start dextrose 10% at 100 mL/hour and notify provider.
Or dextrose bolus 10% 250 mLJump to med 250 mL, IntraVENous, at 937.5 mL/hr, Administer over 16 Minutes, PRN, Other, Blood glucose LESS THAN 40 mg/dL and patient NOT ALERT or NPO, Starting on Tue06/04/22 at 2051
Repeat blood glucose in 15 minutes. If blood glucose remains LESS THAN 70 mg/dL, repeat treatment and recheck blood glucose in 15 minutes x 2. If using glycemic management system, dose as instructed per system. If blood glucose remains LESS THAN 70 mg/dL after 2 intravenous boluses start dextrose 10% at 100 mL/hour and notify provider.
Group 2: ondansetron (ZOFRAN-ODT) disintegrating tablet 4 mgJump to med 4 mg, Oral, EVERY 8 HOURS PRN, Starting on Tue06/04/22 at 2051, Until Discontinued, Nausea, Vomiting Or ondansetron (ZOFRAN) injection 4 mgJump to med 4 mg, IntraVENous, EVERY 6 HOURS PRN, Starting on Tue06/04/22 at 2051, Until Discontinued, Nausea, Vomiting
Administer if oral route cannot be used.
Scheduled Medication Order 06/28/2022 06/29/2022 06/30/2022 allopurinol (ZYLOPRIM) tablet 100 mg 100 mg, Oral, DAILY, First dose on 06/20/22 at 0900, Until Discontinued 153 (Not Given - Provider: Keyla Metzger RN - Reason: Medication not available - Comment: Med not available and scheduled time. Patient in dialysis) 07 (JUN Hold - Provider: Rey Autohold - Reason: Unreviewed Transfer Orders)0900 (Automatically Held - Provider: Rey Autohold)1112 (JUN Unhold - Provider: Jessenia Norton RN)180 (Given - Provider: Jessenia Norton RN) 0954 (Given - Provider: Keyla Metzger RN) atorvastatin (LIPITOR) tablet 20 mg 20 mg, Oral, NIGHTLY, First dose on 06/20/22 at 2100, Until Discontinued 2007 (Given - Provider: Levi Javier RN) 07 (JUN Hold - Provider: Rey Autohold - Reason: Unreviewed Transfer Orders)1112 (MAR Unhold - Provider: Jessenia Norton RN)210 (Given - Provider: Levi Javier RN) 2100 (Due) bisacodyl (DULCOLAX) suppository 10 mg 10 mg, Rectal, DAILY, First dose on Tue06/21/22 at 0900, Until Discontinued 1027 (Not Given - Provider: Keyla Metzger RN - Reason: Patient/family refused) 0723 (MAR Hold - Provider: Rey Autohold - Reason: Unreviewed Transfer Orders)0900 (Automatically Held - Provider: Rey Autohold)1112 (MAR Unhold - Provider: Jessenia Norton RN) 0954 (Not Given - Provider: Keyla Metzger RN - Reason: Patient/family refused) brexpiprazole (REXULTI) tablet 2 mg 2 mg, Oral, DAILY, First dose (after last modification) on Tue06/24/22 at 2330, Until Discontinued 1359 (Given - Provider: Keyla Metzger RN) 0723 (MAR Hold - Provider: Rey Autohold - Reason: Unreviewed Transfer Orders)0900 (Automatically Held - Provider: Rey Schaferhold)1112 (MAR Unhold - Provider: Jessenia Norton RN)1805 (Given - Provider: Jessenia Norton RN) 0954 (Given - Provider: Keyla Metzger RN) budesonide-formoterol (SYMBICORT) 80-4.5 MCG/ACT inhaler 2 puff 2 puff, Inhalation, 2 TIMES DAILY, First dose on Tue06/20/22 at 0800, Until Discontinued, Rinse mouth out with water (without swallowing) after every dose. 0920 (Given - Provider: Rayray Mack RCP)2112 (Given - Provider: Eldon Romero RCP) 0723 (MAR Hold - Provider: Rey Autohold - Reason: Unreviewed Transfer Orders)0800 (Automatically Held - Provider: Rey Autohold)1112 (MAR Unhold - Provider: Jessenia Norton RN)2111 (Given - Provider: Eldon Romero RCP) 0846 (Given - Provider: Iona Zhang RCP)1999 (Due) cefepime (MAXIPIME) 2,000 mg in sterile water 20 mL IV syringe 2,000 mg, IntraVENous, at 40 mL/hr, Administer over 30 Minutes, USER SPECIFIED (Once per day on Tue), First dose (after last reorder) on Tue06/29/22 at 0900, For 5 doses, Please administer after dialysis on dialysis days. Please contact pharmacy to adjust times if dialysis schedule changes.- if HD stops, pls give it 3 x per week on the floor - Administer as slow IV Push over 5 mins Reconstitute 2 g vial with 10 mL of designated diluent. Then, to produce a 100 mg/mL solution, further dilute in syringe to 20 mL. 0723 (MAR Hold - Provider: Rey Autohold - Reason: Unreviewed Transfer Orders)0900 (Automatically Held - Provider: Rey Autohold)1112 (MAR Unhold - Provider: Jessenia Norton RN)1123 (Not Given - Provider: Jessenia Norton RN - Reason: Loss of IV access)1910 (Given - Provider: Jessenia Norton RN) gabapentin (NEURONTIN) capsule 300 mg 300 mg, Oral, DAILY, First dose (after last modification) on Tue06/27/22 at 1300, Until Discontinued 1359 (Given - Provider: Keyla Metzger RN) 0723 (JUN Hold - Provider: Rey Autohold - Reason: Unreviewed Transfer Orders)111 (MAR Unhold - Provider: Jessenia Norton RN)180 (Given - Provider: Jessenia Norton RN) 1318 (Given - Provider: Keyla Metzger RN) heparin (porcine) injection 5,000 Units 5,000 Units, SubCUTAneous, EVERY 8 HOURS SCHEDULED (3 times per day), First dose on Tue06/21/22 at 2200, Until Discontinued 0547 (Given - Provider: Kari Jones RN)1355 (Not Given - Provider: Keyla Metzger RN - Reason: Contraindicated - Comment: IR procedure)2148 (Given - Provider: Levi Javier RN) 0553 (Given - Provider: Levi Javier RN)0723 (MAR Hold - Provider: Rey Autohold - Reason: Unreviewed Transfer Orders)111 (MAR Unhold - Provider: Jessenia Norton RN)180 (Given - Provider: Jessenia Norton RN)215 (Not Given - Provider: Levi Javier RN - Reason: Other - Comment: given at 1806) 0549 (Given - Provider: Levi Javier RN)1400 (Due)2200 (Due) insulin glargine (LANTUS) injection vial 25 Units 25 Units, SubCUTAneous, NIGHTLY, First dose (after last modification) on Tue06/25/22 at 2100, Until Discontinued 2029 (Given - Provider: Levi Javier RN) 0723 (JUN Hold - Provider: Rey Autohold - Reason: Unreviewed Transfer Orders)1112 (MAR Unhold - Provider: Jessenia Norton RN)2102 (Given - Provider: Levi Javier RN) 2099 (Due) insulin lispro (HUMALOG) injection vial 0-4 Units 0-4 Units, SubCUTAneous, NIGHTLY, First dose on 06/20/22 at 2100, Until Discontinued, If continuous tube feedings/TPN/NPO, give correction dose based on result, no reduction in dose. If eating or bolus tube feeding: Corrective Bedtime Algorithm Glucose: Dose: 70-299 No Insulin 300-349 4 Units Over 349 4 Units and notify physician 2024 (Not Given - Provider: Levi Javier RN - Reason: Order parameters not met) 0723 (JUN Hold - Provider: Rey Autohold - Reason: Unreviewed Transfer Orders)111 (MAR Unhold - Provider: Jessenia Norton RN)2047 (Not Given - Provider: Levi Javier RN - Reason: Order parameters not met) 2099 (Due) insulin lispro (HUMALOG) injection vial 0-8 Units 0-8 Units, SubCUTAneous, 3 TIMES DAILY WITH MEALS, First dose on 06/20/22 at 0800, Until Discontinued, Medium Dose Corrective Algorithm Glucose: Dose: 70-199 No Insulin 200-249 2 Units 250-299 4 Units 300-349 6 Units Over 349 8 Units and notify physician 1025 (Not Given - Provider: Keyla Metzger RN - Reason: Order parameters not met)1401 (Not Given - Provider: Keyla Metzger RN - Reason: Order parameters not met)1746 (Not Given - Provider: Keyla Metzger RN - Reason: Order parameters not met) 0723 (MAR Hold - Provider: Rey Autohold - Reason: Unreviewed Transfer Orders)0800 (Automatically Held - Provider: Rey Autohold)1112 (MAR Unhold - Provider: Jessenia Norton RN)1212 (Not Given - Provider: Jessenia Norton RN - Reason: Order parameters not met)181 (Not Given - Provider: Jessenia Norton RN - Reason: Order parameters not met) 0914 (Not Given - Provider: Keyla Metzger RN - Reason: Order parameters not met)1318 (Given - Provider: Keyla Metzger RN)1700 (Due) lamoTRIgine (LAMICTAL) tablet 200 mg 200 mg, Oral, DAILY, First dose on 06/20/22 at 0900, Until Discontinued 1359 (Given - Provider: Keyla Metzger RN) 0723 (MAR Hold - Provider: Rey Autohold - Reason: Unreviewed Transfer Orders)0900 (Automatically Held - Provider: Rey Autohold)1112 (MAR Unhold - Provider: Jessenia Norton RN)1804 (Given - Provider: Jessenia Norton RN) 1210 (Given - Provider: Keyla Metzger RN - Comment: medication not available at scheduled time) mirtazapine (REMERON) tablet 30 mg 30 mg, Oral, NIGHTLY, First dose on 06/20/22 at 2100, Until Discontinued 2007 (Given - Provider: Levi Javier RN) 0723 (MAR Hold - Provider: Rey Autohold - Reason: Unreviewed Transfer Orders)1112 (MAR Unhold - Provider: Jessenia Norton RN)2109 (Given - Provider: Levi Javier RN) 2100 (Due) pantoprazole (PROTONIX) tablet 40 mg 40 mg, Oral, DAILY BEFORE BREAKFAST, First dose on 06/20/22 at 0715, Until Discontinued, Do not crush or break. 1025 (Not Given - Provider: Keyla Metzger RN - Reason: Patient not available) 0658 (Given - Provider: Levi Javier RN)0723 (MAR Hold - Provider: Rey Autohold - Reason: Unreviewed Transfer Orders)1112 (MAR Unhold - Provider: Jessenia Norton RN)1804 (Given - Provider: Jessenia Norton RN) 0954 (Given - Provider: Keyla Metzger RN) polyethylene glycol (GLYCOLAX) packet 17 g 17 g, Oral, DAILY, First dose on 06/21/22 at 0900, Until Discontinued, Stir and dissolve one packet of powder (17 g) in any 4 to 8 ounces of beverage (cold, hot or room temperature) then drink 1026 (Not Given - Provider: Keyla Metzger RN - Reason: Patient/family refused) 0723 (MAR Hold - Provider: Rey Autohold - Reason: Unreviewed Transfer Orders)0900 (Automatically Held - Provider: Rey Autohold)111 (MAR Unhold - Provider: Jessenia Norton RN) 0954 (Not Given - Provider: Keyla Metzger RN - Reason: Patient/family refused) propranolol (INDERAL) tablet 20 mg 20 mg, Oral, 3 TIMES DAILY, First dose on Tue06/20/22 at 0900, Until Discontinued 1026 (Not Given - Provider: Keyla Metzger RN - Reason: Patient not available - Comment: Dialysis)1359 (Given - Provider: Keyla Metzger RN)2008 (Given - Provider: Levi Javier RN) 0723 (MAR Hold - Provider: Rey Autohold - Reason: Unreviewed Transfer Orders)0900 (Automatically Held - Provider: Rey Autohold)111 (MAR Unhold - Provider: Jessenia Norton RN)180 (Given - Provider: Jessenia Nortno RN)2120 (Not Given - Provider: Levi Javier RN - Reason: Other - Comment: given at 180) 0955 (Given - Provider: Keyla Metzger RN)1400 (Due)2100 (Due) scopolamine (TRANSDERM-SCOP) transdermal patch 1 patch (CANCELED) 1 patch, TransDERmal, Administer over 72 Hours, EVERY 72 HOURS, First dose on Tue06/29/22 at 0845, For 1 dose, Remove in 72 hours, Pre-op (day of surgery) 0823 (Patch Applied - Provider: Jodi Frederick RN - Comment: Behind right ear)111 (Patch Verified - Provider: Jessenia Norton RN - Comment: Time automatically adjusted from order being discontinued) senna (SENOKOT) tablet 8.6 mg 8.6 mg (1 tablet), Oral, NIGHTLY, First dose on Tue06/21/22 at 2100, Until Discontinued 2019 (Not Given - Provider: Levi Javier RN - Reason: Patient/family refused) 0723 (MAR Hold - Provider: Rey Autohold - Reason: Unreviewed Transfer Orders)111 (MAR Unhold - Provider: Jessenia Norton RN)2122 (Not Given - Provider: Levi Javier RN - Reason: Patient/family refused) 2100 (Due) sodium chloride flush 0.9 % injection 5-40 mL 5-40 mL, IntraVENous, EVERY 12 HOURS SCHEDULED (2 times per day), First dose on 06/20/22 at 0900, Until Discontinued, For Line Patency: Peripheral IV = 5 mL; Midline or Central Line = 10 mL/lumen. If following IV push medication, administer flush at same rate as the IV push. Flush volume is determined by type of infusion therapy being given. For non-viscous solutions use: Peripheral IV = 5 mL Midline or Central Line = 10 mL/lumen For viscous solutions (i.e. blood components, parenteral nutrition, contrast media, or after obtaining blood sample) use: Peripheral IV = 10 mL Midline or Central Line = 20 mL/lumen 1359 (Given - Provider: Keyla Metzger RN)2030 (Given - Provider: Levi Javier RN) 0723 (MAR Hold - Provider: Rey Autohold - Reason: Unreviewed Transfer Orders)0900 (Automatically Held - Provider: Rey Autohold)1112 (MAR Unhold - Provider: Jessenia Norton RN)1123 (Given - Provider: Jessenia Norton RN)2109 (Given - Provider: Levi Javier RN) 0954 (Given - Provider: Keyla Metzger RN)2100 (Due) tamsulosin (FLOMAX) capsule 0.4 mg 0.4 mg, Oral, DAILY, First dose on 06/20/22 at 0900, Until Discontinued, Do not crush or break. 1359 (Given - Provider: Keyla Metzger RN) 0723 (MAR Hold - Provider: Rey Autohold - Reason: Unreviewed Transfer Orders)0900 (Automatically Held - Provider: Rey Autohold)1112 (MAR Unhold - Provider: Jessenia Norton RN)1806 (Given - Provider: Jessenia Norton RN) 0954 (Given - Provider: Keyla Metzger RN) venlafaxine (EFFEXOR XR) extended release capsule 150 mg 150 mg, Oral, DAILY, First dose on 06/20/22 at 0900, Until Discontinued, Do not crush or break. 1359 (Given - Provider: Keyla Metzger RN) 0723 (MAR Hold - Provider: Rey Autohold - Reason: Unreviewed Transfer Orders)0900 (Automatically Held - Provider: Rey Autohold)1112 ([facility] Unhold - Provider: Jessenia Norton RN)1805 (Given - Provider: Jessenia Norton RN) 0954 (Given - Provider: Keyla Metzger RN) Continuous Medication Order 06/28/2022 06/29/2022 06/30/2022 0.9 % sodium chloride infusion (CANCELED) IntraVENous, at 100 mL/hr, CONTINUOUS, Starting on Tue06/29/22 at 0800, Pre-op (day of surgery) 0822 (New Bag - Provider: Jodi Frederick RN)0907 (Paused - Provider: BRODIE Dietrich CRNA - Comment: Switch to gravity)0908 (Restarted - Provider: BRODIE Dietrich CRNA)0929 (Anesthesia Volume Adjustment - Provider: BRODIE Dietrich CRNA)1001 (Anesthesia Volume Adjustment - Provider: BRODIE Dietrich CRNA) PRN Medication Order 06/28/2022 06/29/2022 06/30/2022 0.9 % sodium chloride infusion IntraVENous, at 5-250 mL/hr, PRN, if patient receiving piggyback infusions and maintenance fluids are not ordered OR KVO fluids to protect IV site / prevent frequent line interruptions/ long duration, Starting on Tue06/20/22 at 0654, For piggyback infusion, administer at same rate as piggyback for a total of 25 mL. Enter 25 mL into dose field and piggyback rate into rate field of order. If piggyback is infusing at a rate less than 100 mL/hr, enter 25 mL into dose field and 100 mL/hr into rate field of order. For KVO fluids, enter rate of 20 mL/hr or less into rate field of order. 0723 ([facility] Hold - Provider: Rey Autohold - Reason: Unreviewed Transfer Orders)1112 ([facility] Unhold - Provider: Jessenia Norton RN) acetaminophen (TYLENOL) suppository 650 mg(Linked Group 1) 650 mg, Rectal, EVERY 6 HOURS PRN, Starting on Tue06/20/22 at 0654, Until Discontinued, Pain Mild (1-3), Fever, For temp greater than 100.4 F (38 C), Administer if oral route cannot be used. 722 ([facility] Hold - Provider: Rey Autohold - Reason: Unreviewed Transfer Orders)111 ([facility] Unhold - Provider: Jessenia Norton RN) acetaminophen (TYLENOL) tablet 650 mg(Linked Group 1) 650 mg, Oral, EVERY 6 HOURS PRN, Starting on 06/20/22 at 0654, Until Discontinued, Pain Mild (1-3), Fever, For temp greater than 100.4 F (38 C), Maximum dose of acetaminophen is 4000 mg from all sources in 24 hours. 722 ([facility] Hold - Provider: Rey Autohold - Reason: Unreviewed Transfer Orders)111 ([facility] Unhold - Provider: Jessenia Norton RN) albuterol sulfate HFA (PROVENTIL;VENTOLIN;PROAIR) 108 (90 Base) MCG/ACT inhaler 2 puff 2 puff, Inhalation, EVERY 6 HOURS PRN, Starting on 06/20/22 at 0654, Until Discontinued, Wheezing, Shortness of Breath, Initiate RT Bronchodilator Protocol: Yes - Inpatient Protocol 722 ([facility] Hold - Provider: Rey Autohold - Reason: Unreviewed Transfer Orders)111 ([facility] Unhold - Provider: Jessenia Norton RN) ALPRAZolam (XANAX) tablet 0.5 mg 0.5 mg, Oral, 2 TIMES DAILY PRN, Starting on Tue06/25/22 at 1415, Until Discontinued, Anxiety 722 ([facility] Hold - Provider: Rey Autohold - Reason: Unreviewed Transfer Orders)1111 ([facility] Unhold - Provider: Jessenia Norton RN) dextrose 10 % infusion IntraVENous, at 100 mL/hr, CONTINUOUS PRN, if blood glucose remains LESS THAN 70 mg/dL after 2 dextrose 10% intravenous boluses or administration of glucagon, Starting on 06/20/22 at 0654, If blood glucose fails to stabilize after 2 dextrose 10% intravenous boluses or glucagon administration, start dextrose 10% infusion at 100 mL/hour and repeat blood glucose at 30 and 60 minutes. If blood glucose is GREATER THAN 70 mg/dL after 60 minutes, discontinue dextrose 10% infusion. 07 ([facility] Hold - Provider: Rey Autohold - Reason: Unreviewed Transfer Orders)111 ([facility] Unhold - Provider: Jessenia Norton RN) dextrose bolus 10% 125 mL(Linked Group 2) 125 mL, IntraVENous, at 937.5 mL/hr, Administer over 8 Minutes, PRN, Other, Blood glucose 40 - 69 mg/dL and patient NOT ALERT or NPO, Starting on 06/20/22 at 0654, Repeat blood glucose in 15 minutes. If blood glucose remains LESS THAN 70 mg/dL, repeat treatment and recheck blood glucose in 15 minutes x 2. If using glycemic management system, dose as instructed per system. If blood glucose remains LESS THAN 70 mg/dL after 2 intravenous boluses start dextrose 10% at 100 mL/hour and notify provider. 07 ([facility] Hold - Provider: Rey Autohold - Reason: Unreviewed Transfer Orders)111 ([facility] Unhold - Provider: Jessenia Norton RN) dextrose bolus 10% 250 mL(Linked Group 2) 250 mL, IntraVENous, at 937.5 mL/hr, Administer over 16 Minutes, PRN, Other, Blood glucose LESS THAN 40 mg/dL and patient NOT ALERT or NPO, Starting on 06/20/22 at 0654, Repeat blood glucose in 15 minutes. If blood glucose remains LESS THAN 70 mg/dL, repeat treatment and recheck blood glucose in 15 minutes x 2. If using glycemic management system, dose as instructed per system. If blood glucose remains LESS THAN 70 mg/dL after 2 intravenous boluses start dextrose 10% at 100 mL/hour and notify provider. 0723 ([facility] Hold - Provider: Rey Autohold - Reason: Unreviewed Transfer Orders)111 ([facility] Unhold - Provider: Jessenia Norton RN) glucagon (rDNA) injection 1 mg 1 mg, IntraMUSCular, PRN, Starting on 06/20/22 at 0654, Until Discontinued, Low blood sugar, Blood glucose less than 70 mg/dL and patient NOT ALERT or NPO and does not have IV access., After administration, attempt intravenous access and start D5W at 100 mL/hr. Repeat blood glucose in 15 minutes x2 and notify provider. 0723 ([facility] Hold - Provider: [facility] [employer] - Reason: Unreviewed Transfer Orders)1112 ([facility] Unhold - Provider: Jessenia Norton RN) glucose chewable tablet 16 g 16 g (4 tablet), Oral, PRN, Starting on 06/20/22 at 0654, Until Discontinued, Low blood sugar, If blood glucose is LESS THAN 70 mg/dL and patient is alert and tolerating oral. Give 4 tablets (16g) Repeat blood glucose in 15 minutes. If blood glucose is LESS THAN 70 mg/dL, repeat treatment and recheck blood glucose in 15 minutes x 2. If blood glucose remains LESS THAN 70 mg/dL, notify provider. 722 ([facility] Hold - Provider: Rey Autohold - Reason: Unreviewed Transfer Orders)1111 ([facility] Unhold - Provider: Jessenia Norton RN) heparin (porcine) injection 1,700 Units 1,700 Units, IntraCATHeter, PRN, Starting on Tue06/29/22 at 1655, Until Discontinued, Line Care, For installation into each catheter limb Arterial 1700 units To be given in Dialysis 1655 (Given - Provider: Kari Mcbride RN) heparin (porcine) injection 1,800 Units 1,800 Units, IntraCATHeter, PRN, Starting on Tue06/29/22 at 1655, Until Discontinued, Line Care, For installation into each catheter limb Venous 1800 units To be given in Dialysis 1656 (Given - Provider: Kari Mcbride RN) heparin (porcine) injection (COMPLETED) ONCE PRN, 1 dose, Starting on Tue06/28/22 at 1555, Until Tue06/28/22 at 1555 1555 (Given - Provider: Leon Cam RN - Comment: blue port flush) heparin (porcine) injection (COMPLETED) ONCE PRN, 1 dose, Starting on Tue06/28/22 at 1558, Until Tue06/28/22 at 1558 1558 (Given - Provider: Leon Cam RN - Comment: red port flush) lidocaine (XYLOCAINE) 2 % uro-jet Topical, PRN, Pain, Starting on 06/20/22 at 0805 07 ([facility] Hold - Provider: Rey Autohold - Reason: Unreviewed Transfer Orders)1111 ([facility] Unhold - Provider: Jessenia Norton RN) ondansetron (ZOFRAN) injection 4 mg(Linked Group 3) 4 mg, IntraVENous, EVERY 6 HOURS PRN, Starting on 06/20/22 at 0654, Until Discontinued, Nausea, Vomiting, Administer if oral route cannot be used. 07 ([facility] Hold - Provider: Rey Autohold - Reason: Unreviewed Transfer Orders)1112 ([facility] Unhold - Provider: Jessenia Norton, HAYDE) ondansetron (ZOFRAN-ODT) disintegrating tablet 4 mg(Linked Group 3) 4 mg, Oral, EVERY 8 HOURS PRN, Starting on 06/20/22 at 0654, Until Discontinued, Nausea, Vomiting 0723 ([facility] Hold - Provider: [facility] [employer] - Reason: Unreviewed Transfer Orders)1112 ([facility] Unhold - Provider: Jessenia Norton RN) oxyCODONE (ROXICODONE) immediate release tablet 5 mg 5 mg, Oral, EVERY 4 HOURS PRN, Starting on 06/20/22 at 1322, Until Discontinued, Pain Severe (7-10) 0723 ([facility] Hold - Provider: Rey Autohold - Reason: Unreviewed Transfer Orders)111 ([facility] Unhold - Provider: Jessenia Norton RN) sod chloride IRR soln 0.9 % irrigation (CANCELED) CONTINUOUS PRN, Starting on Tue06/29/22 at 0934, Intra-op 0934 (New Bag - Provider: Kevin Myles MD) sodium chloride flush 0.9 % injection 5-40 mL 5-40 mL, IntraVENous, PRN, Starting on 06/20/22 at 0654, Until Discontinued, Line Care, After every IV line use, For Line Patency: Peripheral IV = 5 mL; Midline or Central Line = 10 mL/lumen. If following IV push medication, administer flush at same rate as the IV push. Flush volume is determined by type of infusion therapy being given. For non-viscous solutions use: Peripheral IV = 5 mL Midline or Central Line = 10 mL/lumen For viscous solutions (i.e. blood components, parenteral nutrition, contrast media, or after obtaining blood sample) use: Peripheral IV = 10 mL Midline or Central Line = 20 mL/lumen 0723 ([facility] Hold - Provider: Rey Autohold - Reason: Unreviewed Transfer Orders)1112 ([facility] Unhold - Provider: Jessenia Norton RN) sterile water for irrigation (CANCELED) PRN, Starting on Tue06/29/22 at 0941, Intra-op 0941 (Given - Provider: Kevin Myles MD - Comment: poured on backtable) Linked Groups Order Group 1: acetaminophen (TYLENOL) tablet 650 mgJump to med 650 mg, Oral, EVERY 6 HOURS PRN, Starting on 06/20/22 at 0654, Until Discontinued, Pain Mild (1-3), Fever, For temp greater than 100.4 F (38 C)
Maximum dose of acetaminophen is 4000 mg from all sources in 24 hours.
Or acetaminophen (TYLENOL) suppository 650 mgJump to med 650 mg, Rectal, EVERY 6 HOURS PRN, Starting on 06/20/22 at 0654, Until Discontinued, Pain Mild (1-3), Fever, For temp greater than 100.4 F (38 C)
Administer if oral route cannot be used.
Group 2: dextrose bolus 10% 125 mLJump to med 125 mL, IntraVENous, at 937.5 mL/hr, Administer over 8 Minutes, PRN, Other, Blood glucose 40 - 69 mg/dL and patient NOT ALERT or NPO, Starting on 06/20/22 at 0654
Repeat blood glucose in 15 minutes. If blood glucose remains LESS THAN 70 mg/dL, repeat treatment and recheck blood glucose in 15 minutes x 2. If using glycemic management system, dose as instructed per system. If blood glucose remains LESS THAN 70 mg/dL after 2 intravenous boluses start dextrose 10% at 100 mL/hour and notify provider.
Or dextrose bolus 10% 250 mLJump to med 250 mL, IntraVENous, at 937.5 mL/hr, Administer over 16 Minutes, PRN, Other, Blood glucose LESS THAN 40 mg/dL and patient NOT ALERT or NPO, Starting on 06/20/22 at 0654
Repeat blood glucose in 15 minutes. If blood glucose remains LESS THAN 70 mg/dL, repeat treatment and recheck blood glucose in 15 minutes x 2. If using glycemic management system, dose as instructed per system. If blood glucose remains LESS THAN 70 mg/dL after 2 intravenous boluses start dextrose 10% at 100 mL/hour and notify provider.
Group 3: ondansetron (ZOFRAN-ODT) disintegrating tablet 4 mgJump to med 4 mg, Oral, EVERY 8 HOURS PRN, Starting on 06/20/22 at 0654, Until Discontinued, Nausea, Vomiting Or ondansetron (ZOFRAN) injection 4 mgJump to med 4 mg, IntraVENous, EVERY 6 HOURS PRN, Starting on Tue06/20/22 at 0654, Until Discontinued, Nausea, Vomiting
Administer if oral route cannot be used.
Scheduled Medication Order 07/06/2022 07/07/2022 07/08/2022 allopurinol (ZYLOPRIM) tablet 100 mg 100 mg, Oral, DAILY, First dose (after last modification) on Tue07/01/22 at 0900, Until Discontinued 0747 (Given - Provider: Sahra Cruz II, LPN) 0740 (Given - Provider: Ernestina Steve LPN) 0811 (Given - Provider: Ernestina Steve LPN) atorvastatin (LIPITOR) tablet 20 mg 20 mg, Oral, NIGHTLY, First dose (after last modification) on Tue06/30/22 at 2100, Until Discontinued 2137 (Given - Provider: Vitor Iniguez LPN) 2137 (Given - Provider: Quinn Vazquez LPN) 2099 (Due) brexpiprazole (REXULTI) tablet 2 mg 2 mg, Oral, DAILY, First dose (after last modification) on Tue07/01/22 at 0900, Until Discontinued 0748 (Given - Provider: Sahra Cruz II, LPN) 0741 (Given - Provider: Ernestina Steve LPN) 0813 (Given - Provider: Ernestina Steve LPN) budesonide-formoterol (SYMBICORT) 80-4.5 MCG/ACT inhaler 2 puff 2 puff, Inhalation, 2 TIMES DAILY, First dose (after last modification) on Tue06/30/22 at 2000, Until Discontinued, Rinse mouth out with water (without swallowing) after every dose. 1123 (Given - Provider: Saturnino Moe RCP)1937 (Given - Provider: Erica Pandya RCP) 1053 (Given - Provider: Karina Charles RCP)2017 (Given - Provider: Erica Pandya RCP) 1105 (Given - Provider: Jarocho Snell RCP)1999 (Due) cefepime (MAXIPIME) 2,000 mg in sodium chloride 0.9 % 50 mL IVPB (mini-bag) (CANCELED) 2,000 mg, IntraVENous, at 100 mL/hr, Administer over 30 Minutes, USER SPECIFIED (Once per day on Tue), First dose (after last modification) on Tue07/01/22 at 1900, For 4 doses, Please administer after dialysis on dialysis days. Please contact pharmacy to adjust times if dialysis schedule changes.- if HD stops, pls give it 3 x per week on the floor - 1655 (New Bag - Provider: Africa Ocampo RN)1820 (Stopped - Provider: Sahra Cruz II, LPN) fluticasone (FLONASE) 50 MCG/ACT nasal spray 1 spray 1 spray, Each Nostril, DAILY, First dose on Tue07/02/22 at 1815, Until Discontinued 0749 (Given - Provider: Sahra Cruz II, LPN) 0741 (Given - Provider: Ernestina Steve LPN) 0813 (Given - Provider: Ernestina Steve LPN) gabapentin (NEURONTIN) capsule 300 mg 300 mg, Oral, DAILY, First dose (after last modification) on Tue07/01/22 at 1300, Until Discontinued 1232 (Given - Provider: Sahra Cruz II, LPN) 1157 (Given - Provider: Ernestina Steve LPN) 1228 (Given - Provider: Ernestina Steve LPN) heparin (porcine) injection 5,000 Units 5,000 Units, SubCUTAneous, EVERY 8 HOURS SCHEDULED (3 times per day), First dose (after last modification) on Tue06/30/22 at 2200, Until Discontinued 0621 (Given - Provider: Quinn Vazquez LPN)1225 (Given - Provider: Sahra Cruz II, LPN)2138 (Given - Provider: Vitor Iniguez LPN) 0601 (Given - Provider: Vitor Iniguez LPN)1409 (Given - Provider: Ernestina Steve LPN)2138 (Given - Provider: Quinn Vazquez LPN) 0609 (Given - Provider: Quinn Vazquez LPN)1400 (Due)2200 (Due) insulin glargine (LANTUS) injection vial 25 Units 25 Units, SubCUTAneous, NIGHTLY, First dose (after last modification) on Tue06/30/22 at 2100, Until Discontinued 2138 (Given - Provider: Vitor Iniguez LPN) 2137 (Given - Provider: Quinn Vazquez LPN) 2099 (Due) insulin lispro (HUMALOG) injection vial 0-4 Units 0-4 Units, SubCUTAneous, NIGHTLY, First dose (after last modification) on Tue06/30/22 at 2100, Until Discontinued, If continuous tube feedings/TPN/NPO, give correction dose based on result, no reduction in dose. If eating or bolus tube feeding: Corrective Bedtime Algorithm Glucose: Dose: 70-299 No Insulin 300-349 4 Units Over 349 4 Units and notify physician 2130 (Not Given - Provider: Vitor Iniguez LPN - Reason: Order parameters not met - Comment: Blood sugar was 261.) 2146 (Not Given - Provider: Quinn Vazquez LPN - Reason: Order parameters not met) 2099 (Due) insulin lispro (HUMALOG) injection vial 0-8 Units 0-8 Units, SubCUTAneous, 3 TIMES DAILY WITH MEALS, First dose (after last modification) on Tue06/30/22 at 1700, Until Discontinued, Medium Dose Corrective Algorithm Glucose: Dose: 70-199 No Insulin 200-249 2 Units 250-299 4 Units 300-349 6 Units Over 349 8 Units and notify physician 0749 (Not Given - Provider: Sahra Cruz II, LPN - Reason: Order parameters not met)1136 (Given - Provider: Sahra Cruz II, LPN)1820 (Not Given - Provider: Sahra Cruz II, LPN - Reason: Order parameters not met) 0746 (Not Given - Provider: Ernestina Steve LPN - Reason: Order parameters not met)1157 (Given - Provider: Ernestina Steve LPN)1637 (Not Given - Provider: Ernestina Steve LPN - Reason: Order parameters not met) 0813 (Not Given - Provider: Ernestina Steve LPN - Reason: Order parameters not met - Comment: CCurren blood glucose 176 mg/dl)1228 (Given - Provider: Ernestina Steve LPN)1700 (Due) lamoTRIgine (LAMICTAL) tablet 200 mg 200 mg, Oral, DAILY, First dose (after last modification) on Tue07/01/22 at 0900, Until Discontinued 0748 (Given - Provider: Sahra Cruz II, LPN) 0922 (Given - Provider: Ernestina Steve LPN) 0813 (Given - Provider: Ernestina Steve LPN) mirtazapine (REMERON) tablet 30 mg 30 mg, Oral, NIGHTLY, First dose (after last modification) on Tue06/30/22 at 2100, Until Discontinued 2137 (Given - Provider: Vitor Iniguez LPN) 2143 (Given - Provider: Quinn Vazquez LPN) 2099 (Due) pantoprazole (PROTONIX) tablet 40 mg 40 mg, Oral, DAILY BEFORE BREAKFAST, First dose (after last modification) on Tue07/01/22 at 0700, Until Discontinued, Do not crush or break. 0621 (Given - Provider: Quinn Vazquez LPN) 0602 (Given - Provider: Vitor Iniguez LPN) 0609 (Given - Provider: Quinn Vazquez LPN) polyethylene glycol (GLYCOLAX) packet 17 g 17 g, Oral, DAILY, First dose on Tue06/30/22 at 1700, Until Discontinued 0749 (Not Given - Provider: Sahra Cruz II, LPN - Reason: Patient/family refused) 0740 (Not Given - Provider: Ernestina Steve LPN - Reason: Patient/family refused) 0816 (Not Given - Provider: Ernestina Steve LPN - Reason: Patient/family refused) propranolol (INDERAL) tablet 20 mg 20 mg, Oral, 3 TIMES DAILY, First dose (after last modification) on Tue06/30/22 at 2100, Until Discontinued 0747 (Given - Provider: Sahra Cruz II, LPN)1225 (Given - Provider: Sahra Cruz II, LPN)2139 (Given - Provider: Vitor Iniguez LPN) 0740 (Given - Provider: Ernestina Steve LPN)1410 (Given - Provider: Ernestina Steve LPN)2138 (Given - Provider: Quinn Vazquez LPN) 0811 (Given - Provider: Ernestina Steve LPN)1400 (Due)2100 (Due) senna (SENOKOT) tablet 8.6 mg 8.6 mg (1 tablet), Oral, NIGHTLY, First dose (after last modification) on Tue06/30/22 at 2100, Until Discontinued 2138 (Given - Provider: Vitor Iniguez LPN) 2137 (Given - Provider: Quinn Vazquez LPN) 2099 (Due) tamsulosin (FLOMAX) capsule 0.4 mg 0.4 mg, Oral, DAILY, First dose (after last modification) on Tue07/01/22 at 0900, Until Discontinued, Do not crush or break. 0747 (Given - Provider: Sahra Cruz II, LPN) 0740 (Given - Provider: Ernestina Steve LPN) 0811 (Given - Provider: Ernestina Steve LPN) venlafaxine (EFFEXOR XR) extended release capsule 150 mg 150 mg, Oral, DAILY, First dose (after last modification) on Tue07/01/22 at 0900, Until Discontinued, Do not crush or break. 0747 (Given - Provider: Sahra Cruz II, LPN) 0740 (Given - Provider: Ernestina Steve LPN) 0811 (Given - Provider: Ernestina Steve LPN) PRN Medication Order 07/06/2022 07/07/2022 07/08/2022 0.9 % sodium chloride infusion IntraVENous, at 5-250 mL/hr, PRN, if patient receiving piggyback infusions and maintenance fluids are not ordered OR KVO fluids to protect IV site / prevent frequent line interruptions/ long duration, Starting on Tue07/02/22 at 1859, For piggyback infusion, administer at same rate as piggyback for a total of 25 mL. Enter 25 mL into dose field and piggyback rate into rate field of order. If piggyback is infusing at a rate less than 100 mL/hr, enter 25 mL into dose field and 100 mL/hr into rate field of order. For KVO fluids, enter rate of 20 mL/hr or less into rate field of order. acetaminophen (TYLENOL) suppository 650 mg(Linked Group 1) 650 mg, Rectal, EVERY 6 HOURS PRN, Starting on Tue07/02/22 at 1859, Until Discontinued, Pain Mild (1-3), Fever, For temp greater than 100.4 F (38 C), Administer if oral route cannot be used. acetaminophen (TYLENOL) tablet 650 mg(Linked Group 1) 650 mg, Oral, EVERY 6 HOURS PRN, Starting on Tue07/02/22 at 1859, Until Discontinued, Pain Mild (1-3), Fever, For temp greater than 100.4 F (38 C), Maximum dose of acetaminophen is 4000 mg from all sources in 24 hours. albuterol sulfate HFA (PROVENTIL;VENTOLIN;PROAIR) 108 (90 Base) MCG/ACT inhaler 2 puff 2 puff, Inhalation, EVERY 6 HOURS PRN, Starting on Tue06/30/22 at 1529, Until Discontinued, Wheezing, Shortness of Breath, Initiate RT Bronchodilator Protocol: Yes - Inpatient Protocol ALPRAZolam (XANAX) tablet 0.5 mg 0.5 mg, Oral, 2 TIMES DAILY PRN, Starting on Tue06/30/22 at 1529, Until Discontinued, Anxiety anticoagulant sodium citrate 4 % injection 1.7 mL 1.7 mL, IntraCATHeter, PRN, Starting on Tue07/01/22 at 1039, Until Discontinued, Post dialysis use only. Arterial lumen locking agent 1756 (Given - Provider: Africa Ocampo RN) anticoagulant sodium citrate 4 % injection 1.8 mL 1.8 mL, IntraCATHeter, PRN, Starting on Tue07/01/22 at 1040, Until Discontinued, Post dialysis use only. Venous lumen locking agent bisacodyl (DULCOLAX) suppository 10 mg 10 mg, Rectal, DAILY PRN, Starting on Tue06/30/22 at 1530, Until Discontinued, Constipation, TO BE GIVEN AFTER THERAPY COMPLETED FOR THE DAY dextrose 10 % infusion IntraVENous, at 100 mL/hr, CONTINUOUS PRN, if blood glucose remains LESS THAN 70 mg/dL after 2 dextrose 10% intravenous boluses or administration of glucagon, Starting on Tue06/30/22 at 1529, If blood glucose fails to stabilize after 2 dextrose 10% intravenous boluses or glucagon administration, start dextrose 10% infusion at 100 mL/hour and repeat blood glucose at 30 and 60 minutes. If blood glucose is GREATER THAN 70 mg/dL after 60 minutes, discontinue dextrose 10% infusion. dextrose bolus 10% 125 mL(Linked Group 2) 125 mL, IntraVENous, at 937.5 mL/hr, Administer over 8 Minutes, PRN, Other, Blood glucose 40 - 69 mg/dL and patient NOT ALERT or NPO, Starting on Tue06/30/22 at 1529, Repeat blood glucose in 15 minutes. If blood glucose remains LESS THAN 70 mg/dL, repeat treatment and recheck blood glucose in 15 minutes x 2. If using glycemic management system, dose as instructed per system. If blood glucose remains LESS THAN 70 mg/dL after 2 intravenous boluses start dextrose 10% at 100 mL/hour and notify provider. dextrose bolus 10% 250 mL(Linked Group 2) 250 mL, IntraVENous, at 937.5 mL/hr, Administer over 16 Minutes, PRN, Other, Blood glucose LESS THAN 40 mg/dL and patient NOT ALERT or NPO, Starting on Tue06/30/22 at 1529, Repeat blood glucose in 15 minutes. If blood glucose remains LESS THAN 70 mg/dL, repeat treatment and recheck blood glucose in 15 minutes x 2. If using glycemic management system, dose as instructed per system. If blood glucose remains LESS THAN 70 mg/dL after 2 intravenous boluses start dextrose 10% at 100 mL/hour and notify provider. glucagon (rDNA) injection 1 mg 1 mg, IntraMUSCular, PRN, Starting on Tue06/30/22 at 1529, Until Discontinued, Low blood sugar, Blood glucose less than 70 mg/dL and patient NOT ALERT or NPO and does not have IV access., After administration, attempt intravenous access and start D5W at 100 mL/hr. Repeat blood glucose in 15 minutes x2 and notify provider. glucose chewable tablet 16 g 16 g (4 tablet), Oral, PRN, Starting on Tue06/30/22 at 1529, Until Discontinued, Low blood sugar, If blood glucose is LESS THAN 70 mg/dL and patient is alert and tolerating oral. Give 4 tablets (16g) Repeat blood glucose in 15 minutes. If blood glucose is LESS THAN 70 mg/dL, repeat treatment and recheck blood glucose in 15 minutes x 2. If blood glucose remains LESS THAN 70 mg/dL, notify provider. heparin (porcine) injection 2,500 Units 2,500 Units, IntraCATHeter, NEEDED, Starting on Tue07/06/22 at 1545, Until Discontinued, pre and mid treatment dialysis 1608 (Given - Provider: Africa Ocampo RN - Comment: dialysis)1701 (Given - Provider: Africa Ocampo RN - Comment: diaylsis mid dose) lidocaine (XYLOCAINE) 2 % uro-jet Topical, PRN, Pain, Starting on Tue06/30/22 at 1529 ondansetron (ZOFRAN) injection 4 mg(Linked Group 3) 4 mg, IntraVENous, EVERY 6 HOURS PRN, Starting on Tue07/02/22 at 1859, Until Discontinued, Nausea, Vomiting, Administer if oral route cannot be used. ondansetron (ZOFRAN-ODT) disintegrating tablet 4 mg(Linked Group 3) 4 mg, Oral, EVERY 8 HOURS PRN, Starting on Tue07/02/22 at 1859, Until Discontinued, Nausea, Vomiting oxyCODONE (ROXICODONE) immediate release tablet 5 mg 5 mg, Oral, EVERY 4 HOURS PRN, Starting on Tue06/30/22 at 1529, Until Discontinued, Pain Severe (7-10) senna (SENOKOT) tablet 17.2 mg 17.2 mg (2 tablet), Oral, DAILY PRN, Starting on Tue06/30/22 at 1530, Until Discontinued, Constipation, First line therapy for constipation sodium chloride flush 0.9 % injection 5-40 mL 5-40 mL, IntraVENous, PRN, Starting on Tue07/02/22 at 1859, Until Discontinued, Line Care, After every IV line use, For Line Patency: Peripheral IV = 5 mL; Midline or Central Line = 10 mL/lumen. If following IV push medication, administer flush at same rate as the IV push. Flush volume is determined by type of infusion therapy being given. For non-viscous solutions use: Peripheral IV = 5 mL Midline or Central Line = 10 mL/lumen For viscous solutions (i.e. blood components, parenteral nutrition, contrast media, or after obtaining blood sample) use: Peripheral IV = 10 mL Midline or Central Line = 20 mL/lumen Linked Groups Order Group 1: acetaminophen (TYLENOL) tablet 650 mgJump to med 650 mg, Oral, EVERY 6 HOURS PRN, Starting on Tue07/02/22 at 1859, Until Discontinued, Pain Mild (1-3), Fever, For temp greater than 100.4 F (38 C)
Maximum dose of acetaminophen is 4000 mg from all sources in 24 hours.
Or acetaminophen (TYLENOL) suppository 650 mgJump to med 650 mg, Rectal, EVERY 6 HOURS PRN, Starting on Tue07/02/22 at 1859, Until Discontinued, Pain Mild (1-3), Fever, For temp greater than 100.4 F (38 C)
Administer if oral route cannot be used.
Group 2: dextrose bolus 10% 125 mLJump to med 125 mL, IntraVENous, at 937.5 mL/hr, Administer over 8 Minutes, PRN, Other, Blood glucose 40 - 69 mg/dL and patient NOT ALERT or NPO, Starting on Tue06/30/22 at 1529
Repeat blood glucose in 15 minutes. If blood glucose remains LESS THAN 70 mg/dL, repeat treatment and recheck blood glucose in 15 minutes x 2. If using glycemic management system, dose as instructed per system. If blood glucose remains LESS THAN 70 mg/dL after 2 intravenous boluses start dextrose 10% at 100 mL/hour and notify provider.
Or dextrose bolus 10% 250 mLJump to med 250 mL, IntraVENous, at 937.5 mL/hr, Administer over 16 Minutes, PRN, Other, Blood glucose LESS THAN 40 mg/dL and patient NOT ALERT or NPO, Starting on Tue06/30/22 at 1529
Repeat blood glucose in 15 minutes. If blood glucose remains LESS THAN 70 mg/dL, repeat treatment and recheck blood glucose in 15 minutes x 2. If using glycemic management system, dose as instructed per system. If blood glucose remains LESS THAN 70 mg/dL after 2 intravenous boluses start dextrose 10% at 100 mL/hour and notify provider.
Group 3: ondansetron (ZOFRAN-ODT) disintegrating tablet 4 mgJump to med 4 mg, Oral, EVERY 8 HOURS PRN, Starting on Tue07/02/22 at 1859, Until Discontinued, Nausea, Vomiting Or ondansetron (ZOFRAN) injection 4 mgJump to med 4 mg, IntraVENous, EVERY 6 HOURS PRN, Starting on Tue07/02/22 at 1859, Until Discontinued, Nausea, Vomiting
Administer if oral route cannot be used.
PRN Medication Order 09/06/2022 09/07/2022 09/08/2022 lidocaine PF 1 % injection (COMPLETED) PRN, Starting on Tue09/08/22 at 1105, Until Tue09/08/22 at 1105, Intra-op 1105 (Given - Provid er: Gillian Batista MD) Care Teams (unrecognized sec tion and content) Team Status: Active Member Role Status Dates Darion Randle MD Primary Care Provider Active Team Status: Inactive Member Role Status [facility] Active Darion Randle MD Primary Care Provider Active Arash Henry MD Admit Provider, Attending Provider Active Team Status: Inactive Member Role Status Dates Darion Randle MD Primary Care Provider Active Saturnino Kaur Jr, MD Emergency Provider Active Team Status: Inactive Member Role Status Dates NON STAFF Primary Care Provider Active Jessica Black MD Emergency Provider Active Medical Social Worker Relationship Specialty Start Date End Date Darion Randle MD [address] [place] [address] PCP - General Family Medicine 06/03/22 Medical Social Worker Relationship Specialty Start Date End Date Darion Randle MD [address] [place] [address] PCP - General Family Medicine 06/03/22 Medical Social Worker Relationship Specialty Start Date End Date Darion Randle MD [address] [place] [address] PCP - General Family Medicine 06/03/22 Medical Social Worker Relationship Specialty Start Date End Date Darion Randle MD [address] [place] [address] PCP - General Family Medicine 06/03/22 Medical Social Worker Relationship Specialty Start Date End Date Darion Radnle MD [address] [place] [address] PCP - General Family Medicine 06/03/22 Team Status: Active Member Role Status Dates NON STAFF Primary Care Provider Active Team Status: Active Member Role Status Dates Ewa Kim [facility] Emergency Provider Active Darion Randle MD Primary Care Provider Active Arash Henry MD Admit Provider, Attending Provider Active Goals (unrecognized section and content) Goals may be documented in a n alternate section FOR RECORDS PERTAINING TO PATIENTS WHO ARE OR HAVE BEEN ENROLLED IN A CHEMICAL DEPENDENCY/SUBSTANCEABUSE PROGRAM, SOME INFORMATION MAY BE OMITTED. This clinical summary was aggregated from multiple sources. Caution should be exercised in using it in the provision of clinical care. This summary normalizes information from multiple sources, and as a consequence, information in this document may materially change the coding, format and clinical context of patient data. In addition, data may be omitted in some cases. CLINICAL DECISIONS SHOULD BE BASED ON THE PRIMARY CLINICAL RECORDS. [facility] [employer] provides no warranty or guarantee of the accuracy or completeness of information in this document.
[2023-04-29 13:42] LABS: Creatinine Urine Random 69.83 mg/dL (20.00-300.00); Total Protein Urine Random 20.8 mg/dL (<=11.9)
[2023-04-29 13:58] LABS: Bilirubin Urine NEGATIVE (NEGATIVE); Blood Urine TRACE-L (NEGATIVE); Clarity Urine CLEAR (CLEAR); Color Urine LT. YELLOW (YELLOW); Glucose Urine UA NEGATIVE (NEGATIVE); Ketones Urine NEGATIVE (NEGATIVE); Leukocyte Esterase Urine SMALL (NEGATIVE); Nitrite Urine NEGATIVE (NEGATIVE); Protein Urine NEGATIVE (NEG/TRACE); Urobilinogen Urine 0.2 EU/dL (0.2-1.0)
== END 2023-04-29 03:01 | disposition home or self-care (01) ==
LOC: LAB 03:00
PROVIDERS: PCP Family Medicine; Visit Provider Internal Medicine Nephrology
DX: N18.4 Chronic kidney disease, stage 4 (severe) (principal); N17.9 Acute kidney failure, unspecified; I95.89 Other hypotension; E11.69 Type 2 diabetes mellitus with other specified complication; E66.9 Obesity, unspecified; D64.9 Anemia, unspecified; E79.0 Hyperuricemia without signs of inflammatory arthritis and tophaceous disease; E53.8 Deficiency of other specified B group vitamins
CPT/HCPCS: 81003; 82570; 84156

== ENCOUNTER 2023-08-05 07:22 | Outpatient (OUT) | payer BC, SELFPAY ==
--- NOTE | 2023-08-05 | ECG_ITS ---
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 Order Number: [id number] Reading MD: YANETH YUN Measurements Intervals [place] Rate: 63 P: -44 UT: 177 QRS: 22 QRSD: 98 T: 59 QT: 417 QTc: 428 Interpretive Statements SINUS RHYTHM WITH OCCASIONAL VENTRICULAR PREMATURE COMPLEXES Compared to ECG 07/14/2022 22:52:37 Ventricular premature complex(es) now present Possible ischemia no longer present Electronically Signed On 08-08-2023 6:48:58 EDT by YANETH YUN
--- OUTSIDE RECORDS SUMMARY | 2023-08-05 07:29 | XMS_ITS | CCD ---
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 [employer] Name Role Phone NAZZAL, MUNIER Unavailable Unavailable NAZZAL, MUNIER Unavailable Unavailable JERDARION Raymond Unavailable Unavailable JERDARION Unavailable Unavailable Jer Darion ROMERO Primary Care Provider [phone] Darion Randle MD Primary Care Provider [phone] STEFANI AUGUSTIN Admitting Unavailable LAKISHA CARRIZALES Referring Unavailable MESERET BALLARD Consulting Unavailable ROSALES SINGH Attending Unavailable DARION RANDLE Primary Care Unavailable CAITY RICHARDSON Consulting Unavailable SHELLEY HUGGINS Consulting Unavailable DARION RANDLE Primary Care Unavailable SHARON BARRY Consulting Unavailable RICHARD, ZAINSAMMYIN Attending Unavailable SHEYLA VIVEROS Admitting Unavailable ALLEGRA SCHERER Consulting Unavailable CECILIA HERNÁNDEZ Consulting Unavailable RICHARD, ZAINULABEDIN Consulting Unavailable KEVIN MYLES Consulting Unavailable ACE HANSON Consulting Unavailable AMPAROADRIENNE SUTTON Consulting Unavailable LEXIEBRENT SHIPMAN Consulting Unavailable MARCUS YEPEZ Consulting Unavailable NATALIYA DUNN Consulting Unavailable MARKERJÚNIOR Referring Unavailable DARION RANDLE Primary Care Unavailable YO BATISTA Consulting Unavailable CHEPE CORDOVA Admitting Unavailable ABDOUL CAMARGO Attending Unavailable UMESH CLINE Consulting Unavailable IRAIS LANE Consulting Unavailable ABDOUL CAMARGO Consulting Unavailable JER, DR ORLANDO Primary Care Unavailable JER, DR ORLANDO Attending Unavailable JER, DR ORLANDO Admitting Unavailable JER, DR ORLANDO Primary Care Unavailable JER, DR ORLANDO Attending Unavailable JER, DR ORLANDO Admitting Unavailable CARRIZALES ., DR LAKISHA Tello Consulting Unavailable CARRIZALES ., DR LAKISHA Tello Attending Unavailable CARRIZALES ., DR LAKISHA Tello Admitting Unavailable JER, DR ORLANDO Primary [...] Unavailable JER, DR ORLANDO Primary Care Unavailable BAKFANI VIDES Attending Unavailable BAKFANI VIDES Admitting Unavailable MISC, DR GARCIA Consulting Unavailable JER, DR ORLANDO Primary Care Unavailable MISC, DR GARCIA Attending Unavailable MISC, DR GARCIA Admitting Unavailable MARIAMAAVA GARCIA Consulting Unavailable JER, DR ORLANDO Primary Care Unavailable MARIAMA, AVA Attending Unavailable MARIAMA, AHMAD Admitting Unavailable JER, DR ORLANDO Primary Care Unavailable MISC, DR GARCIA Attending Unavailable MISC, DR GARCIA Admitting Unavailable JER, DR ORLANDO Primary Care Unavailable MISC, DR GARCIA Attending Unavailable MISC, DR GARCIA Admitting Unavailable Luceros, Aziz Unavailable FANI DILL Referring Unavailable JER, DARION Dumont Primary Care Unavailable GILLIAN BATISTA Admitting Unavailable GILLIAN BATISTA Attending Unavailable Duncombe Darion ROMERO Primary Care Provider [phone] NON STAFF Primary Care Provider UnavailMD Jessica Esparza Emergency Provider Julio [facility] [place] Emergency Provider MD Darion Randle Primary Care Provider MD Arash Henry Admit Provider MD Arash Henry Attending Provider [phone] NON STAFF Primary Care Provider UnavailMD Jessica Esparza Emergency Provider Julio [facility] [place] Emergency Provider MD Darion Randle Primary Care Provider [phone] MD Arash Henry Admit Provider [phone] MD Arash Henry Attending Provider MD Saturnino Kaur Jr Emergency Provider Darion Randle MD Primary Care Provider Avinash PHYSICAL THERAPIST-Lexis RUIZ Unavailable DARION RANDLE Primary Care Unavailable SACHIN MCKEON Admitting Unavailable SACHIN MCKEON L Consulting Unavailable SACHIN MCKEON Attending Unavailable KENROY BAHENA Consulting Unavailable DERIC, AKINFEMI S Consulting Unavailable UDAY, LIVIA Consulting Unavailable DARION RANDLE Primary Care Unavailable KENROY BAHENA Consulting Unavailable DIANA SACHIN L Admitting Unavailable SACHIN MCKEON L Attending Unavailable PARINJA, CHRIS Consulting Unavailable KAMERON, HAI S Consulting Unavailable KATHY PIMENTEL Consulting Unavailable NATALIYA DUNN Attending Unavailable DARION RANDLE Primary Care Unavailable PARINJA, CHRIS Admitting Unavailable KAMERON, HAI S Consulting Unavailable MICK SORTO Consulting Unavailable Jessica Black Attending Unavailable Jessica Black Admitting Unavailable NON STAFF Primary Care Unavailable Darion Randle Primary Care Unavailable Saturnino Kaur Jr Admitting Unavailable Saturnino Kaur Jr Attending Unavailable Gary Wiley Admitting Unavailab le Gary Wiley Attending Unavailab le NON STAFF Primary Care Unavailable Darion Randle Primary Care Unavailable Arash Henry Admitting Unavailable Arash Henry Attending Unavailable SONDRA MONTANA Attending Unavailable MYLA LEGGETT Attending Unavailable RUTHIE DEVINE Attending Unavailable GORDO LOW Attending Unavailable LEXIS KEEN Attending Unavailab le LEXIS KEEN Attending LEXIS Faria Attending LEXIS Faria Attending GORDO Platt Attending LEXIS Skinner Attending LEXIS Faria Attending GORDO Platt Attending Unavailable DARION RANDLE Attending Unavailable LAKISHA VIZCARRA Attending LEXIS Skinner Attending GORDO Platt Attending Unavailable Medications Current Medications Medication Drug [...] tablet (2 sources) Opioid Agonist Start: 05-31-2022 HYDROcodone-acetaminophen (NORCO) 5-325 MG per tablet 1 tablet [id number] 200 actuat albuterol 0.09 mg/actuat metered dose inhaler (17 sources) beta2-Adren ergic Agonist Start: 07-19-2022 take 1 puff(s) by inhalation every four hours for wheezing albuterol HFA 90 mcg/act inhaler Inhale 1 puff every 4 (four) hours if needed for wheezing or shortness of breath. 0 07/19/2022 Active Start: 06-30-2022 albuterol sulf ate HFA (PROVENTIL;VENTOLIN;PROAIR) 108 (90 [...] hrs Active allopurinol 100 mg oral tablet (17 sources) Xanthine Oxidase Inhibitor Start: 03-31-2023 take 1 tablet by mouth in the morning allopurinol (Zyloprim) 100 MG tablet Indications: Idiopathic chronic gout without tophus, unspecified site Take 1 tablet (100 mg) by mouth in the morning. 100 tablet 2 03/31/2023 Active Start: 06-05-2022 End: 07-08-2022 take 1 tablet by mouth once daily allopurinol (ZYLOPRIM) 100 MG tablet Take 1 tablet by mouth daily 30 tablet 0 07/08/2022 Active ALPRAZolam 0.5 mg oral tablet (8 sources) Benzodiazepine Start: 06-25-2022 ALPRAZolam (XA NAX) tablet 0.5 mg Start: 06-24-2022 End: 06-25-2022 [...] 1.8 mL atorvastatin 20 mg oral tablet (20 sources) HMG-CoA Reductase Inhibitor Start: 08-31-2022 take 1 tablet by mouth in the morning atorvastatin (Lipitor) 20 MG tablet Indications: Pure hyperglyceridemia (CMS/HCC) Take 1 tablet (20 mg) by mouth in the morning. 100 tablet 4 08/31/2022 Active Start: 05-29-2022 End: 07-08-2022 take 1 tablet by mouth once daily atorvastatin (LIPITOR) 20 MG tablet Take 1 tablet by mouth nightly 30 tablet 0 07/08/2022 Active benztropine mesylate 1 mg oral tablet (6 sources) Anticholinergic, Antihistamine Start: 03-22-2023 End: 03-21-2024 take 1 tablet by mouth in the morning benztropine (Cogentin) 1 MG tablet Indications: Movement disorder Take 1 tablet (1 mg) by mouth in the morning and 1 tablet (1 mg) before bedtime. 60 tablet 2 03/22/2023 03/21/2024 Active Start: 02-08-2023 End: 02-14-2023 take 1 mg by mouth twice daily Benztropine Active 1 MG PO Twice daily 60 February 14, 2023 8:46am bisacodyl 10 mg rectal suppository (3 sources) Stimulant Laxative Start: 06-21-2022 bisacodyl ( DULCOLAX) suppository 10 mg Start: 06-04-2022 bisacodyl (DUL [...] DAILY, First dose (after last modification) on [facility] 06/24/22 at 2330, Until Discontinued Start: 06-16-2022 [...] formoterol fumarate 0.0045 mg/actuat metered dose inhaler (19 sources) Corticosteroid, beta2-Adrenergic Agonist Start: 07-08-2022 take 2 puff(s) by inhalation once daily budesonide-formoterol (Symbicort) 80-4.5 MCG/ACT inhaler Inhale 2 puffs 1 (one) time each day. 0 07/08/2022 Active Start: 06-30-2022 budesonide-for moterol (SYMBICORT) 80-4.5 MCG/ACT inhaler 2 [...] dose on Tue05/29/22 at 1000, Until Discontinued Rinse mouth out [...] 06/25/2022 07/08/2022 Discontinued (Stop Taking at Discharge) clonazePAM 0.5 mg oral tablet (5 sources) Benzodiazepine Start: 03-22-2023 take 1 tablet by mouth in the morning clonazePAM (KlonoPIN) 0.5 MG tablet Indications: BRITTANY (generalized anxiety disorder) (CMS/FORMERLY [facility]) Take 1 tablet (0.5 mg) by mouth in the morning and 1 tablet (0.5 mg) before bedtime. 60 tablet 1 03/22/2023 Active Start: 06-25-2022 End: 06-27-2022 take 0.5 mg by mouth every twelve hours 0.5 mg, Oral, EVERY 12 HOURS, First dose on Tue06/25/22 at 1530, Until Discontinued dapagliflozin 10 mg oral tablet (2 sources) [...] Discontinued (Stop Taking at Discharge) End: 06-20-2022 dulaglutide (Trulicity) 3 MG/0.5ML solution pen-injector (4 sources) inject 3 mg by subcutaneous injection every week dulaglutide (Trulicity) 3 MG/0.5ML solution pen-injector Inject 3 mg under the skin 1 (one) time per week. 0 Active ergocalciferol 1.25 mg oral capsule (7 sources) Provitamin D2 Compound Start: 023 End: 023 take 1 capsule by mouth every week Ergocalciferol (VITAMIN D) 72205 units CAPS Take 50,000 Units by mouth once a week for 4 doses 4 capsule 0 06/14/2022 07/08/2022 Discontinued (Stop Taking at Discharge) Start: 06-07-2022 vitamin D (ERG OCALCIFEROL) capsule 50,000 Units Start: 05-31-2022 vitamin D (ERG OCALCIFEROL) capsule 50,000 Units End: 06-11-2022 take 1.25 mg by mouth every week vitamin D (ERGOCALCIFEROL) 1.25 MG (28139 UT) CAPS capsule Take 50,000 Units by mouth once a week Tuesday 0 06/11/2022 Discontinued (Stop Taking at Discharge) fluconazole 100 mg oral tablet (1 source) Azole Antifungal Start: 02-22-2023 take 1 tablet by mouth once daily Fluconazole (Diflucan) 100 mg tablet Active 100 MG PO Daily 7 February 22, 2023 12:00am fluticasone propionate 0.05 mg/actuat [...] Active folic acid 1 mg oral tablet (8 sources) Start: 12-21-2022 take 1 tablet by mouth in the morning folic acid (Folvite) 1 MG tablet Take 1 mg by mouth in the morning. 0 12/21/2022 Active furosemide 40 mg oral tablet (12 sources) Loop Diuretic Start: 10-01-2022 take 1 tablet by mouth in the morning furosemide (Lasix) 40 MG tablet Take 40 mg by mouth in the morning. 0 10/01/2022 Active Start: 06-26-2022 End: 06-26-2022 40 mg, IntraVENous, [...] ONCE PRN, 1 dose, Starting o n Candace 06/24/22 at 1438, Until Tue06/24/22 at 1438 Start: [...] Units, Sub CUTAneous, NIGHTLY, First dose on 06/20/22 at 2100, Until Discontinued If continuous tube [...] insulin lispro (HUMALOG) injection vial 0-16 Units Insulin Regular Human (HUMULIN R U-500 KWIKPEN SC) (4 sources) inject 50-80 [IU] by subcutaneous injection twice daily Insulin Regular Human (HUMULIN R U-500 KWIKPEN SC) Inject under the skin. 50-80 units BID 0 Active 3 ml insulin, regular, human 500 unt/ml pen injector (15 sources) Insulin Start: 06-11-2022 End: 07-11-2022 insulin regular human (HUMULIN R U-500 KWIKPEN) [...] 06-16-2022 End: 07-08-2022 KERENDIA 10 MG TABS X-Hdgoemqfhonp-Vgtq e-B12-B6 (Metanx) 3-90.314-2-35 MG capsule (4 sources) Start: 04-21-2023 End: 07-20-2023 P-Bhrizmgwswxo-Absme- B12-B6 (Metanx) 3-90.314-2-35 MG capsule Indications: Diabetic neuropathic arthropathy (CMS/HCC) , Polyneuropathy due to type 2 diabetes mellitus (CMS/HCC) , Intractable chronic migraine with aura with status migrainosus , Polyneuropathy Take 1 capsule by mouth in the morning. 90 capsule 3 04/21/2023 07/20/2023 Active lamoTRIgine 200 mg oral tablet (20 sources) Mood Stabilizer, Anti-epilepti c Agent Start: 04-19-2023 End: 07-18-2023 take 1 tablet by mouth in the morning lamoTRIgine (LaMICtal) 200 MG tablet Indications: Major depressive disorder, single episode, moderate (HCC) (CMS/HCC) Take 1 tablet (200 mg) by mouth in the morning. 90 tablet 0 04/19/2023 07/18/2023 Active Start: 01-23-2023 take 200 mg by mouth once addie y Lamotrigine Active 200 MG PO Daily February [...] Discontinued midodrine hydrochloride 2.5 mg oral tablet (9 sources) alpha-Adrenergic Agonist Start: 02-08-2023 take 5 [...] 07/19/2022 Active mirtazapine 45 mg oral tablet (20 sources) Start: 04-19-2023 End: 04-18-2024 take 1 tablet by mouth at bedtime mirtazapine (Remeron) 45 MG tablet Indications: Insomnia, unspecified type Take 1 tablet (45 mg) by mouth at bedtime 30 tablet 2 04/19/2023 04/18/2024 Active Start: 02-13-2023 take 45 mg by mouth [...] not open, crush, dissolve , or chew nitroglycerin 0.4 mg sublingual tablet (4 sources) Nitrate Vasodilator nitroglycerin (Nitrostat) 0.4 MG SL tablet nitroglycerin 0.[address] 1 tablet as needed by sublingual route. Place 1 tablet under the tongue for chest pain as needed, can repeat every 5 minutes x3 and then call 911 0 Active omeprazole 40 mg delayed release oral capsule (18 sources) Proton Pump Inhibitor Start: 03-15-2023 take 1 capsule by mouth before mealtime omeprazole (PriLOSEC) [address] capsule Indications: Duodenal ulcer Take 1 capsule (40 mg) by mouth in the morning. Take before meals. 100 capsule 3 03/15/2023 Active Start: 01-23-2023 End: 02-08-2023 take 40 mg [...] not crush or break. polyethylene glycol 3350 51335 mg powder for oral solution (10 sources) Osmotic Laxative Start: 06-05-2022 polyethylene glycol, PEG, 3350 (Glycolax) 17 GM/SCOOP powder Take 17 g by mouth. Daily as needed 0 07/08/2022 Active potassium bicarbonate 20 meq effervescent oral tablet (1 source) Start: 06-01-2022 potassium bicarb-citric acid (EFFER-K) effervescent tablet 20 mEq microencapsulated potassium chloride 20 meq extended release oral tablet (4 sources) potassium chlori de CR (Klor-Con M20) 20 MEQ ER tablet Take 20 mEq by mouth in the morning. Do not crush or chew.. 0 Active primidone 250 mg oral tablet (6 sources) Anti-epileptic Agent Start: 04-25-2023 End: 05-25-2023 take 1 tablet by mouth in the morning primidone (Mysoline) 250 MG tablet Indications: Tremor Take 1 tablet (250 mg) by mouth in the morning and 1 tablet (250 mg) before bedtime. 60 tablet 3 04/25/2023 05/25/2023 Active Start: 04-21-2023 End: 05-17-2023 take 3 tablets by mouth in the morning primidone (Mysoline) 50 MG tablet Indications: Tremor 3 po am and 3 po hs 180 tablet 11 04/21/2023 05/17/2023 Discontinued promethazine hydrochloride 12.5 mg oral tablet (3 [...] on 06/20/22 at 0900, Until Discontinued sennosides, nursing home 8.6 mg oral tablet (4 sources) Start: 06-30-2022 senna (SENOKOT ) tablet 17.2 mg Start: 06-21-2022 senna (SENOKOT ) tablet 8.6 mg Start: 06-04-2022 senna (SENOKOT ) tablet 17.2 mg sertraline 100 mg oral tablet (6 sources) Serotonin Reuptake Inhibitor Start: 04-19-2023 End: 06-16-2023 take 1.5 tablets by mouth in the morning sertraline (Zoloft) 100 MG tablet Indications: Major depressive disorder, single episode, moderate (HCC) (CMS/HCC) Take 1.5 tablets (150 mg) by mouth in the morning. 45 tablet 2 05/17/2023 06/16/2023 Active tamsulosin hydrochloride 0.4 mg oral capsule (10 sources) alpha-Adrenergic Sapna Start: 07-08-2022 take 1 capsule by mouth once daily tamsulosin (FLOMAX) 0.4 MG capsule Take 1 capsule by mouth daily 30 capsule 0 07/08/2022 Active Start: 05-28-2022 End: 07-08-2022 tamsulosin (FLOMAX) capsule 0.4 mg thiamine 100 mg oral tablet (4 sources) Start: 04-19-2023 End: 04-18-2024 take 1 tablet by mouth in the morning thiamine (Vitamin B-1) 100 MG tablet Indications: Tremor Take 1 tablet (100 mg) by mouth in the morning. 30 tablet 11 04/19/2023 04/18/2024 Active traZODone hydrochloride 100 mg oral tablet (1 [...] crush or break. take 1 capsule by [facility] every twenty-four hours Venlafaxine HCl ER 75 [...] mL/hr, Administer over 180 Minutes, ONCE, On Tue06/20/22 at 0930, For 1 dose Start: 06-20-2022 End: 06-22-2022 2,250 mg, IntraVENous, EVERY 8 HOURS, 21 doses, First dose on 06/20/22 at 0900, Last dose on Tue06/27/22 at 0500 Antimicrobial Indications: Urinary Tract Infection UTI duration of therapy: 7 days Start: 06-20-2022 [Order 1 Start ] Name: dextrose bolus 10% 125 mL Signed Summary: 125 mL, IntraVENous, at 937.5 mL/hr, Administer over 8 Minutes, PRN, Other, Blood glucose 40 - 69 mg/dL and patient NOT ALERT or NPO, Starting on Tue06/20/22 at 0654 Repeat blood glucose in 15 [...] patient NOT ALERT or NPO, Starting on Tue06/20/22 at 0654 Repeat blood glucose in 15 [...] Oral, EVERY 6 HOURS PRN, Starting on Tue06/20/22 [...] Oral, EVERY 8 HOURS PRN, Starting on Tue06/20/22 at 0654, Until Discontinued, Nausea, Vomiting [Order 1 End] [Order 2 Start] Name: ondansetron (ZOFRAN) injection 4 mg Signed Summary: 4 mg, IntraVENous, EVERY 6 HOURS PRN, Starting on 06/20/22 at 0654, Until Discontinued, Nausea, Vomiting Administer if oral route cannot be used. [Order 2 End] Start: 06-20-2022 End: 06-20-2022 take 100 mg intravenously once 1,000 mg, IntraVENous, ONCE, 1 dose, On Tue06/20/22 at 0515 Antimicrobial Indications: Urinary Tract Infection [...] End: 06-11-2022 cephALEXin (KEFLEX) capsule 500 mg 0.4 ml enoxaparin sodium 100 mg/ml prefilled syringe (1 source) Low Molecular Weight Heparin Start: 06-20-2022 End: 06-21-2022 inject 40 mg by subcutaneous injection twice daily 40 mg, SubCUTAneous, 2 TIMES DAILY, First dose on 06/20/22 at 0900, Until Discontinued Indication of Use: [...] Start: 06-20-2022 Topical, PRN, Pain, Starting on 06/20/22 at 0805 300 ml linezolid 2 mg/ml injection (1 source) Oxazolidinone Antibacterial Start: 06-21-2022 End: 06-22-2022 600 mg, IntraVENous, at 300 mL/hr, Administer over 60 Minutes, EVERY 12 HOURS, First dose on 06/21/22 at 0015 Avoid aged, smoked, or fermented foods including cheese, sour cream, soy sauce, sauerkraut, yogurt, sausage, pepperoni, salami, and dried fruit. Limit caffeine. lisinopril 20 mg oral tablet (2 sources) Angiotensin Converting Enzyme Inhibitor Start: 05-29-2022 End: 06-03-2022 take 20 mg by mouth once daily 20 mg, Oral, DAILY, First dose on 05/29/22 at 1000, Until Discontinued 50 ml magnesium [...] Problem Classification Problem Date Documented Date Episodic/Chronic Anxiety disorders (20 sources) Generalized anxiety disorder; Translations: [Generalized anxiety disorder] Onset: 3 Resolved: 3 Chronic Bacterial infection; unspecified site (1 source) Other staphylococcus as the cause of diseases classified elsewhere; Translations: [OTH STAPH CAUSE OF DZ CLASS ELSW] Onset: 3 Episodic Cardiac and circulatory congenital anomalies (6 sources) Myocardial bridge of coronary artery; 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] Onset: 2 12-05-2022 Chronic Chronic kidney disease (20 sources) Chronic kidney disease; Translations: [Chronic kidney disease, unspecified] Onset: 3 Chronic Chronic kidney disease (1 source) Chronic kidney disease; Translations: [Chronic kidney disease, stage 3a] Onset: 3 Deficiency and other anemia (1 source) Anemia, unspecified Episodic Diabetes mellitus with complications (20 sources) Type 2 diabetes mellitus; Translations: [Type 2 diabetes mellitus with diabetic chronic kidney disease] Onset: 5 Chronic Diseases of white blood cells (8 sources) Band neutrophil count above reference range; Translations: [Bandemia] Onset: 3 Chronic Disorders of lipid metabolism (18 sources) Hyperlipidemia; Translations: [Hyperlipidemia, unspecified] Onset: 6 Chronic Essential hypertension (13 sources) Essential hypertension; Translations: [Essential (primary) hypertension] Onset: 5 Chronic Fever of unknown origin (1 source) Fever, unspecified; Translations: [FEVER UNSPECIFIED] Onset: 3 Episodic Gastroduodenal ulcer (except hemorrhage) (4 sources) Ulcer of duodenum; Translations: [Duodenal ulcer, unspecified as acute or chronic, without hemorrhage or perforation] Onset: 9 12-05-2022 Chronic Gout and other crystal arthropathies (12 sources) Primary gout; Translations: [Idiopathic gout, left ankle and foot] Onset: 5 12-05-2022 Chronic Headache; including migraine (8 sources) Migraine; Translations: [Migraine, unspecified, not intractable, without status migrainosus] Onset: 6 12-05-2022 Chronic Hyperplasia of prostate (4 sources) Benign prostatic hyperplasia; Translations: [Benign prostatic hyperplasia without lower urinary tract symptoms] Onset: 3 12-05-2022 Chronic Hypertension with complications and secondary hypertension (9 sources) Hypertensive chronic kidney disease with stage 1 through stage 4 chronic kidney disease, or unspecified chronic kidney disease; Translations: [Hypertensive renal disease] Onset: 3 12-05-2022 Chronic Mood disorders (20 sources) Recurrent major depressive episodes, moderate ; Translations: [Major depressive disorder, recurrent, moderate] Onset: 2 Resolved: 4 Chronic Mood disorders (6 sources) Mood disorders; Translations: [DEPRESSION UNSPECIFIED] Onset: 3 03-22-2023 Nephritis; nephrosis; renal sclerosis (11 sources) Atrophy of right kidney; 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 kidney (terminal)] Onset: 3 Chronic Nutritional deficiencies (1 source) Vitamin D deficiency, unspecified; Translations: [VITAMIN D DEFICIENCY UNSPECIFIED] Onset: 2 Chronic Nutritional deficiencies (1 source) Deficiency of other specified B group vitamins Episodic Other aftercare (1 source) residential (current) use of insulin; Translations: [ASSISTED CURRENT USE OF INSULIN] Onset: 3 Episodic Other aftercare (1 source) 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 therapy; Translations: [OTH OCCUPATIONAL THERAPIST ASSISTANTS CURRENT DRUG THERAPY] Onset: 3 Episodic Other circulatory disease (1 [...] AND URETER UNS] Onset: 3 Episodic Other diseases of veins and lymphatics (4 sources) Lymphedema; Translations: [Lymphedema, not elsewhere classified] Onset: 9 12-05-2022 Chronic Other hereditary and degenerative nervous system conditions (2 sources) Multi-system degeneration of the autonomic nervous system; Translations: [Multi-system degeneration of the autonomic nervous system] Onset: 3 Chronic Other lower respiratory disease (4 sources) Hyperventilation; Translations: [Hyperventilation] 01-23-2023 Episodic Other nervous system disorders (4 sources) Mononeuropathy of lower limb; Translations: [Unspecified mononeuropathy of unspecified lower limb] Onset: 9 12-05-2022 Chronic Other nervous system disorders (1 source) Other [...] nutritional; endocrine; and metabolic disorders (4 sources) Severe obesity; Translations: [Morbid (severe) obesity due to excess calories] Onset: 1 12-05-2022 Chronic Other nutritional; endocrine; and metabolic disorders (4 sources) Morbid obesity; Translations: [Morbid (severe) obesity due to excess calories] Onset: 3 12-06-2022 Chronic Other nutritional; endocrine; and metabolic disorders (1 source) Hyperuricemia without signs of inflammatory arthritis and tophaceous disease Episodic Peripheral and visceral atherosclerosis (5 sources) Peripheral vascular disease, unspecified; Translations: [Peripheral vascular disease] Onset: 7 12-05-2022 Chronic Residual codes; unclassified (5 sources) Obstructive sleep apnea (adult) (pediatric); Translations: [OBSTRUCTIVE SLEEP APNEA] Onset: 3 Chronic Residual codes; unclassified (4 sources) Obstructive sleep apnea syndrome; Translations: [Obstructive sleep apnea (adult) (pediatric)] Onset: 7 12-05-2022 Chronic Residual codes; unclassified (1 source) Acquired absence of other specified parts of digestive tract; Translations: [ACQ ABSENCE OTH PART DIGESTV TRACT] Onset: 3 Episodic Residual codes; unclassified (4 sources) Confusional state; Translations: [Disorientation, unspecified] Onset: 3 03-08-2023 Episodic Unclassified (2 sources) Unknown / UNK(Unknown) Onset: 7 Unclassified (4 sources) CONTACT W/AND (SUSP) EXPOS COVID-19; Translations: [CONTACT W/AND (SUSP) EXPOS COVID-19] Onset: 2 Unclassified (1 source) CHRN KIDNEY DISEASE STG 3 UNSP; Translations: [CHRN KIDNEY DISEASE STG 3 UNSP] Onset: 3 Unclassified (1 source) COUGH, UNSPECIFIED; Translations: [COUGH, UNSPECIFIED] Onset: 2 Urinary tract infections (20 sources) Pyelonephritis; Translations: [Tubulo-interstitial nephritis, not specified as acute or chronic] Onset: 3 Episodic Past or Other Problems Problem Classification Problem Date Documented Da te Episodic/Chronic Acute and unspecified renal failure (20 sources) Acute renal failure due to acute cortical necrosis; Translations: [Acute kidney failure with acute cortical necrosis] Onset: 05-28-2022 Episodic Adjustment disorders (4 sources) Adjustment disorder with depressed mood; Translations: [Adjustment disorder with depressed mood] Onset: 08-10-2022 Resolved: 09-07-2022 09-07-2022 Chronic Calculus of urinary tract (20 sources) Ureteric stone; Translations: [Calculus of ureter] Onset: 06-27-2015 Episodic Conditions associated with dizziness or vertigo (5 sources) Dizziness and giddiness; Translations: [Dizziness] Onset: 08-12-2016 12-05-2022 Episodic Fluid and electrolyte disorders (19 sources) Hyponatremia; Translations: [Hypo-osmolality and hyponatremia] Onset: 06-21-2022 Episodic Genitourinary symptoms and ill-defined conditions (5 sources) Personal history of other diseases of urinary system; Translations: [Personal history of other specified urinary system disorders] Onset: 07-15-2022 07-19-2022 Episodic Malaise and fatigue (19 sources) Asthenia; Translations: [Other malaise] Onset: 06-01-2022 Episodic Nonspecific chest pain (4 sources) Chest pain; Translations: [Chest pain, unspecified] Onset: 08-12-2016 12-05-2022 Episodic Other aftercare (4 sources) Long-term current use of insulin; Translations: [residential (current) use of insulin] Onset: 01-24-2019 12-05-2022 Episodic Other circulatory disease (4 sources) Other specified symptoms and signs involving the circulatory and respiratory systems; Translations: [OTH SYMPTOMS AND SIGNS INVOLVING THE CIRC AND RESP SYSTEMS] Onset: 09-17-2016 Episodic Other circulatory disease (6 sources) Orthostatic hypotension; Translations: [Orthostatic hypotension] Onset: 07-15-2022 07-19-2022 Episodic Other circulatory disease (1 source) Orthostatic hypotension; Translations: [Orthostatic hypotension] Onset: 08-09-2022 Episodic Other diseases of kidney and ureters (6 sources) Hydronephrosis; Translations: [Unspecified hydronephrosis] Onset: 05-28-2022 Episodic Other gastrointestinal disorders (4 sources) Constipation; Translations: [Constipation, unspecified] Onset: 05-15-2018 12-05-2022 Episodic Other hematologic conditions (5 sources) History of anemia; Translations: [Personal history of diseases of the blood and blood-forming organs and certain disorders involving the immune mechanism] Onset: 07-17-2022 07-19-2022 Episodic Other injuries and conditions due to external causes (4 sources) Injury of finger of right hand; Translations: [Unspecified injury of right wrist, hand and finger(s), initial encounter] Onset: 12-25-2021 12-05-2022 Episodic Other lower respiratory disease (4 sources) Dyspnea; Translations: [Dyspnea, unspecified] Onset: 08-12-2016 12-05-2022 Episodic Other lower respiratory disease (2 sources) Hyperventilation; Translations: [Hyperventilation] Onset: 01-23-2023 Episodic Other lower respiratory disease (1 source) Shortness of breath; Translations: [Shortness of breath] Onset: 01-23-2023 Episodic Other nervous system disorders (9 sources) Tremor; Translations: [Tremor, unspecified] Onset: 06-07-2022 Episodic Other screening for suspected conditions (not mental disorders or infectious disease) (4 sources) Patient encounter status; Translations: [Encounter for screening for malignant neoplasm of prostate] Onset: 12-06-2022 12-06-2022 Episodic Other upper respiratory disease (1 source) Nasal congestion; Translations: [NASAL CONGESTION] Onset: 04-07-2022 Episodic Residual codes; unclassified (1 source) Pain, unspecified; Translations: [PAIN UNSPECIFIED] Onset: 04-07-2022 Episodic Residual codes; unclassified (4 sources) Edema; Translations: [Edema, unspecified] Onset: 02-06-2015 12-05-2022 Episodic Residual codes; unclassified (4 sources) Insomnia; Translations: [Insomnia, unspecified] Onset: 12-05-2022 12-05-2022 Episodic Syncope (13 sources) Syncope and collapse; Translations: [Syncope] Onset: 07-14-2022 Episodic Unclassified (1 source) Edema, unspecified; Translations: [EDEMA, UNSPECIFIED] Onset: 09-17-2016 Episodic Unclassified (1 source) CONTACT W/AND (SUSP) EXPOS COVID-19; Translations: [CONTACT W/AND (SUSP) EXPOS COVID-19] Onset: 03-31-2022 Results Test Name Value Interpretation Reference Range Facility Orders Onlyon 07-27-2023 Orders Only [id number] Steven Walden 1960 M Date Provider Department Center [facility] [facility] Family History Family history unknown: Yes [facility] 36on 07-22-2023 36 I added a CK to his follow-up labs with LFTs/lipids in 6 weeks. Please make sure [facility] has this as well. Thanks! [facility] Telephoneon 07-21-2023 Telephone [id number] Steven Walden 1960 M Date Provider Department Center 07/21/2023 SONDRA DAN Family History Family history unknown: Yes Normal [facility] Office Visiton 07-19-2023 Follow-up visit [id number] Steven Walden 1960 M Date Provider Department Center 07/19/2023 SONDRA DAN Anisa Kentrell Family History Family history unknown: Yes Level of Service:49399 [place] OFFICE/OUTPATIENT ESTABLISHED MOD MDM 30 MIN Normal [facility] Glucose,Whole Bloodon 2023 Glucose [Mass/Vol] 137 mg/dL High 75-110 [facility] Glucose,Whole Bloodon 2023 Glucose [Mass/Vol] 274 mg/dL High 75-110 [facility] Glucose [Mass/Vol] 229 mg/dL High 75-110 [facility] Glucose [Mass/Vol] 188 mg/dL High 75-110 [facility] Glucose [Mass/Vol] 163 mg/dL High 75-110 [facility] Glucose,Whole Bloodon 2023 Glucose [Mass/Vol] 275 mg/dL High 75-110 [facility] Glucose [Mass/Vol] 162 mg/dL High 75-110 [facility] Glucose [Mass/Vol] 250 mg/dL High 75-110 [facility] Glucose [Mass/Vol] 150 mg/dL High 75-110 [facility] Glucose,Whole Bloodon 2023 Glucose [Mass/Vol] 213 mg/dL High 75-110 [facility] Glucose [Mass/Vol] 142 mg/dL High 75-110 [facility] Glucose [Mass/Vol] 126 mg/dL High 75-110 [facility] Glucose [Mass/Vol] 141 mg/dL High 75-110 [facility] Glucose,Whole Bloodon 2023 Glucose [Mass/Vol] 274 mg/dL High 75-110 [facility] Glucose [Mass/Vol] 229 mg/dL High 75-110 [facility] Glucose [Mass/Vol] 154 mg/dL High 75-110 [facility] Glucose [Mass/Vol] 161 mg/dL High 75-110 [facility] Cult,Urineon 05-20-2023 Cult,Urine Specimen Description .CLEAN CATCH URINE Culture NO SIGNIFICANT GROWTH Report Status FINAL 05/20/2023 Normal [facility] Comment on above: Performed By: #### B MP, CBC #### [facility] [address] [place] [address] Block Sealer: You Bro DO Glucose,Whole Bloodon 2023 Glucose [Mass/Vol] 336 mg/dL High 75-110 [facility] Glucose [Mass/Vol] 193 mg/dL High 75-110 [facility] Glucose [Mass/Vol] 200 mg/dL High 75-110 [facility] Glucose [Mass/Vol] 150 mg/dL High 75-110 [facility] MHPT CULT,URINEon 05-20-2023 MHPT CULT,URINE Specimen Description .[facility] Culture NO SIGNIFICANT GROWTH [facility] Report Status FINAL 05/20/2023 [facility] Original Ordering Provider: NATALIYA DUNN [facility] B12/Folate Panelon Cobalamin (Vitamin B12) [Mass/Vol] 426 pg/mL Normal 232-1245 [facility] Comment on above: Performed By: #### B 12FOL #### [facility] [address] [place], [place] [id number] Block Sealer: Rodrick Jones MD Folic Acid 15.3 ng/mL Normal >4.8 [facility] Comment on above: Performed By: #### B 12FOL #### [facility] [address] [place], [place] [id number] Block Sealer: Rodrick Jones MD Comp Metabolic Profon 2023 Albumin [Mass/Vol] 4.3 g/dL Normal 3.5-5.2 [facility] Comment on above: Performed By: #### L IPR, TSHX, CP ####[facility] [address] [place] [address] lab Director: You Bro DO Alkaline Phos 165 U/L High 40-129 [facility] Comment on above: Performed By: #### L IPR, TSHX, CP ####[facility] [address] [facility] [place] [address] lab Director: You Bro DO ALT [Catalytic activity/Vol] 13 U/L Normal 5-41 [facility] Comment on above: Performed By: #### L IPR, TSHX, CP ####[facility] [address] [facility] [place] [address] lab Director: You Bro DO Anion gap [Moles/Vol] 13 mmol/L Normal 9-17 [facility] Comment on above: Performed By: #### L IPR, TSHX, CP ####[facility] [address] [facility] [place] [address] lab Director: You Bro DO AST [Catalytic activity/Vol] 17 U/L Normal <40 [facility] Comment on above: Performed By: #### L GINO, TSHX, CP ####[facility] [address] [facility] [place] [address] lab Director: You Bro DO Bilirubin [Mass/Vol] 0.3 mg/dL Normal 0.3-1.2 [facility] Comment on above: Performed By: #### L IPR, TSHX, CP ####[facility] [address]ch[address] [facility] [place] [address] lab Director: You Bro DO Calcium [Mass/Vol] 10.0 mg/dL Normal 8.6-10.4 [facility] Comment on above: Performed By: #### L IPR, TSHX, CP ####[facility] [address] [place] [address] Lab Director: You Bro DO Chloride [Moles/Vol] 103 mmol/L Normal 98-107 [facility] Comment on above: Performed By: #### L IPR, TSHX, CP ####[facility] [address] [place] [address] lab Director: You Bro DO CO2 [Moles/Vol] 22 mmol/L Normal 20-31 [facility] Comment on above: Performed By: #### L GINO, TSHX, CP ####[facility] [address]we[address] [facility] [place] [address] lab Director: You Bro DO Creatinine [Mass/Vol] 2.3 mg/dL High 0.7-1.2 [facility] Comment on above: Performed By: #### L GINO, TSHX, CP ####[facility] [address] [facility] [place] [address] Lab Director: You Bro DO GFR/1.73 sq M.predicted among non-blacks MDRD (S/P/Bld) [Vol rate/Area] 32 mL/min/{1.73_m2} Low >60 [facility] Comment on above: Result Comment: [...] renal tubular secretion. Performed By: #### L IPR, TSHX, CP ####[facility] [address] [facility] [place] [address] Lab Director: You Bro DO Glucose [Mass/Vol] 207 mg/dL High 70-99 [facility] Comment on above: Performed By: #### L GINO TSHX, CP ####[facility] [address] [facility] [place] [address] lab Director: You Bro DO Potassium [Moles/Vol] 4.2 mmol/L Normal 3.7-5.3 [facility] Comment on above: Performed By: #### L GINO TSHX, CP ####[facility] [address] [facility] [place] [address] lab Director: You Bro DO Protein [Mass/Vol] 8.7 g/dL High 6.4-8.3 [facility] Comment on above: Performed By: #### L GINO TSHX, CP ####[facility] [address] [facility] [place] [address] Lab Director: You Bro DO Sodium [Moles/Vol] 138 mmol/L Normal 135-144 [facility] Comment on above: Performed By: #### L GINO TSHX, CP ####[facility] [address] [facility] [place] [address] lab Director: You Bro DO Urea nitrogen [Mass/Vol] 48 mg/dL High 8-23 [facility] Comment on above: Performed By: #### L GINO TSHX, CP ####[facility] [address] [facility] [place] [address] Lab Director: You Bro DO Glucose,Whole Bloodon 2023 Glucose [Mass/Vol] 280 mg/dL High 75-110 [facility] Glucose [Mass/Vol] 219 mg/dL High 75-110 [facility] Glucose [Mass/Vol] 178 mg/dL High 75-110 [facility] Glucose [Mass/Vol] 148 mg/dL High 75-110 [facility] Hemoglobin A1Con 05-19-2023 Glucose [Mass/Vol] 160 mg/dL Normal [facility] Comment on above: Result Comment: The ADA and AACC recommend providing the estimated average glucose result to permit better patient understanding of their HBA1c result. Performed By: #### G LYHGB #### [facility] [address] [place] [address] Block Sealer: Rodrick Jones MD HbA1c (Bld) [Mass fraction] 7.2 % High 4.0-6.0 [facility] Comment on above: Performed By: #### G LYHGB #### [facility] [address] [place] [address] Block Sealer: Rodrick Jones MD Lipid Profileon 05-19-2023 Cholesterol [Mass/Vol] 189 mg/dL Normal <200 [facility] Comment on above: Result Comment: Cholesterol Guidelines: <200 Desirable 200-240 Borderline >240 Undesirable Performed By: #### L IPR, TSHX, CP ####[facility] [address] [place] [address] Lab Director: You Bro DO Cholesterol in HDL [Mass/Vol] 31 mg/dL Low >40 [facility] Comment on above: Result Comment: HDL Guidelines: <40 Undesirable 40-59 Borderline >59 Desirable Performed By: #### L IPR, TSHX, CP ####[facility] [address] [facility] [place] [address] Lab Director: You Bro DO Cholesterol in LDL [Mass/Vol] 117 mg/dL Normal 0-130 [facility] Comment on above: Result Comment: LDL Guidelines: <100 Desirable 100-129 Near to/above Desirable 130-159 Borderline >159 Undesirable Direct (measured) LDL and calculated LDL are not interchangeable tests. Performed By: #### L IPR, TSHX, CP ####[facility] [address] [facility] [place] [address] Lab Director: You Bro DO Cholesterol.total/Chol esterol in HDL [Mass ratio] 6.1 {ratio} High <5 [facility] Comment on above: Performed By: #### L IPR, TSHX, CP ####[facility] [address] [place] [address] Lab Director: You Bro DO Triglyceride [Mass/Vol] 204 mg/dL High <150 [facility] Comment on above: Result Comment: Triglyceride Guidelines: <150 Desirable 150-199 Borderline 200-499 High >499 Very high Based on AHA Guidelines for fasting triglyceride, January 2012. Performed By: #### L IPR, TSHX, CP ####[facility] [address] [place] [address] Lab Director: You Bro DO TSH w/reflex to FT4on 2023 Thyroid Stim. Horm. 2.38 uIU/mL Normal 0.30-5.00 [facility] Comment on above: Performed By: #### L IPR, TSHX, CP ####[facility] [address] [place] [address] Lab Director: You Bro DO Glucose,Whole Bloodon 2023 Glucose [Mass/Vol] 270 mg/dL High 75-110 [facility] Glucose [Mass/Vol] 192 mg/dL High 75-110 [facility] UA w/Reflex Cultureon 2023 Bilirubin, SemiQt,Ur Negative Normal NEG [facility] Comment on above: Performed By: #### B MP, CBC #### [facility] [address] [place] [address] Block Sealer: You Bro DO Blood, Urine Negative Normal NEG [facility] Comment on above: Performed By: #### B MP, CBC #### [facility] [address] [place] [address] Block Sealer: You Bro DO Clarity (U) Clear Normal CLEAR [facility] Comment on above: Performed By: #### B MP, CBC #### [facility] [address] [place] [address] Block Sealer: You Bro DO Color (U) Yellow Normal YEL [facility] Comment on above: Performed By: #### B MP, CBC #### [facility] [address] [place] [address] Block Sealer: You Bro DO Glucose Ql (U) Negative Normal NEG [facility] Comment on above: Performed By: #### B MP, CBC #### [facility] [address] [place] [address] Block Sealer: You Bro DO Ketones Ql (U) Negative Normal NEG [facility] Comment on above: Performed By: #### B MP, CBC #### [facility] [address] [place] [place] [address] Block Sealer: You Bro DO Leukocyte esterase Test strip Ql (U) SMALL Abnormal NEG [facility] Comment on above: Performed By: #### B MP, CBC #### [facility] [address] [place] [address] Block Sealer: You Bro, Nitrite,Ur Negative Normal NEG [facility] Comment on above: Performed By: #### B MP, CBC #### [facility] [address] [place] [address] Block Sealer: You Bro DO PH,Ur 5.0 Normal 5.0-8.0 [facility] Comment on above: Performed By: #### B MP, CBC #### [facility] [address] [place] [address] Block Sealer: You Bro DO Protein Ql (U) Negative Normal NEG [facility] Comment on above: Performed By: #### B CECY, CBC #### [facility] [address] [place] [address] Block Sealer: You Bro DO Spec. [place],Ur 1.011 Normal 1.000-1.030 [facility] Comment on above: Performed By: #### B MP, CBC #### [facility] [address] [place] [address] Block Sealer: You Bro DO Urobilinogen,Ur Normal Normal 0.0-1.0 [facility] Comment on above: Performed By: #### B CECY, CBC #### [facility] [address] [place] [address] Block Sealer: You Bro DO Urinalysis,Microon 4 Bacteria None Normal NONE [facility] Comment on above: Performed By: #### B CECY, CBC #### [facility] [address] [place] [address] Block Sealer: You Bro DO Casts 0 TO 2 Abnormal NONE [facility] Comment on above: Performed By: #### B CECY, CBC #### [facility] [address] [place] [address] Block Sealer: You Bro DO Epithelial cells LM Ql (Urine sed) 0 TO 2 Normal [facility] Comment on above: Performed By: #### B MP, CBC #### [facility] [address] [place] [address] Block Sealer: You Bro DO Urine RBC's 3 to 5 Abnormal R02 [facility] Comment on above: Performed By: #### B MP, CBC #### [facility] [address] [place] [address] Block Sealer: You Bro DO Urine WBC's 6 TO 9 Abnormal R05 [facility] Comment on above: Performed By: #### B MP, CBC #### [facility] [address] [place] [address] Block Sealer: You Bro DO CBC with Diffon 05-17-2023 Abs. Basophil 0.10 k/uL Normal 0.0-0.2 [facility] Comment on above: Performed By: #### Julia Christina, CP, ALCB, CDP ####[facility] [address] [facility], [place] [phone] Director: You Bro DO Abs.Neutrophil (Seg) 6.90 k/uL Normal 1.3-9.1 [facility] Comment on above: Performed By: #### Julia Christina, DIANE, ALCB, CDP ####[facility] [address] [facility], [place] [phone] Director: You Bro DO Basophils/100 WBC (Bld) 1 % Normal 0-2 [facility] Comment on above: Performed By: #### Julia Christina, DIANE, ALCB, CDP ####[facility] [address] [facility], [place] [phone] Director: You Bro DO Eosinophils (Bld) [#/Vol] 0.40 10*3/uL Normal 0.0-0.4 [facility] Comment on above: Performed By: #### Julia Christina, CP, ALCB, CDP ####[facility] [address] [facility], [place] [phone] Director: You Bro DO Eosinophils/100 WBC (Bld) 4 % Normal 0-4 [facility] Comment on above: Performed By: #### Julia Christina, CP, ALCB, CDP ####[facility] [address] [place] [address] Lab Director: You Bro DO Erythrocyte distribution width (RBC) [Ratio] 14.3 % Normal 11.5-14.9 [facility] Comment on above: Performed By: #### Julia Christina, CP, ALCB, CDP ####[facility] [address], [place] [phone] Director: You Bro DO Hematocrit (Bld) [Volume fraction] 39.5 % Low 41-53 [facility] Comment on above: Performed By: #### Julia Christina, DIANE, ALCB, CDP ####[facility] [address], [place] [phone] Director: You Bro DO Hemoglobin (Bld) [Mass/Vol] 13.5 g/dL Normal 13.5-17.5 [facility] Comment on above: Performed By: #### Julia Christina, DIANE, ALCB, CDP ####[facility] [address] [facility] [place] [address] [facility] Director: You Bro DO Lymphocytes (Bld) [#/Vol] 2.70 10*3/uL Normal 1.0-4.8 [facility] Comment on above: Performed By: #### Julia Christina, DIANE, ALCB, CDP ####[facility] [address] [place] [address] Lab Director: You Bro DO Lymphocytes/100 WBC (Bld) 25 % Normal 24-44 [facility] Comment on above: Performed By: #### Julia Christina, CP, ALCB, CDP ####[facility] [address] [place] [address] Lab Director: Fanelly, You, DO MCH (RBC) [Entitic mass] 31.3 pg Normal 26-34 [facility] Comment on above: Performed By: #### Julia Christina, CP, ALCB, CDP ####[facility] [address], [place] [phone] Director: You Bro DO MCHC (RBC) [Mass/Vol] 34.1 g/dL Normal 31-37 [facility] Comment on above: Performed By: #### Julia Christina, CP, ALCB, CDP ####[facility] [address], [place] [phone] Director: You Bro DO MCV (RBC) [Entitic vol] 91.9 fL Normal 80-100 [facility] Comment on above: Performed By: #### Julia Christina, CP, ALCB, CDP ####[facility] [address] [place] [address].[place], [place] [phone] Director: You Bro DO Monocytes (Bld) [#/Vol] 0.70 10*3/uL Normal 0.1-1.3 [facility] Comment on above: Performed By: #### Julia Christina, CP, ALCB, CDP ####[facility] [address]nm[address] [facility], [place] [phone] Director: You Bro DO Monocytes/100 WBC (Bld) 6 % Normal 1-7 [facility] Comment on above: Performed By: #### Julia G, CP, ALCB, CDP ####[facility] [address] [facility], [place] [phone] Director: You Bro DO Neutrophil (Seg) 64 % Normal 36-66 [facility] Comment on above: Performed By: #### Julia G, CP, ALCB, CDP ####[facility] [address] [facility], [place] [phone] Director: You Bro DO Platelet mean volume (Bld) [Entitic vol] 7.7 fL Normal 6.0-12.0 [facility] Comment on above: Performed By: #### Julia Christina, CP, ALCB, CDP ####[facility] [address], [place] [phone] Director: You Bro DO Platelets (Bld) [#/Vol] 332 10*3/uL Normal 150-450 [facility] Comment on above: Performed By: #### Julia Christina, CP, ALCB, CDP ####[facility] [address], [place] [phone] Director: You Bro DO RBC (Bld) [#/Vol] 4.30 10*6/uL Low 4.5-5.9 [facility] Comment on above: Performed By: #### Julia Christina, CP, ALCB, CDP ####[facility] [address] [facility], [place] [phone] Director: You Bro DO WBC (Bld) [#/Vol] 10.8 10*3/uL Normal 3.5-11.0 [facility] Comment on above: Performed By: #### Julia Christina, CP, ALCB, CDP ####[facility] [address] [facility] [place] [phone] Director: You Bro DO Comp Metabolic Profon 2023 Albumin [Mass/Vol] 4.3 g/dL Normal 3.5-5.2 [facility] Comment on above: Performed By: #### C DP, LIVP, BMPX #### [facility] [address] [place] [address] Block Sealer: You Bro DO Alkaline Phos 162 U/L High 40-129 [facility] Comment on above: Performed By: #### C DP, LIVP, BMPX #### [facility] [address] [place] [address] Block Sealer: You Bro DO ALT [Catalytic activity/Vol] 12 U/L Normal 5-41 [facility] Comment on above: Performed By: #### C DP, LIVP, BMPX #### [facility] [address] [facility] [place] [address] Block Sealer: You Bro DO Anion gap [Moles/Vol] 16 mmol/L Normal 9-17 [facility] Comment on above: Performed By: #### C DP, LIVP, BMPX #### [facility] [address] [place] [address] Block Sealer: You Bro DO AST [Catalytic activity/Vol] 17 U/L Normal <40 [facility] Comment on above: Performed By: #### C DP, LIVP, BMPX #### [facility] [address] [facility] [place] [address] Block Sealer: You Bro DO Bilirubin [Mass/Vol] 0.3 mg/dL Normal 0.3-1.2 [facility] Comment on above: Performed By: #### C DP, LIVP, BMPX #### [facility] [place] [facility] [place] [address] Block Sealer: You Bro DO Calcium [Mass/Vol] 9.5 mg/dL Normal 8.6-10.4 [facility] Comment on above: Performed By: #### C DP, LIVP, BMPX #### [facility] [place] [facility] [place] [address] Block Sealer: You Bro DO Chloride [Moles/Vol] 102 mmol/L Normal 98-107 [facility] Comment on above: Performed By: #### C DP, LIVP, BMPX #### [facility] [address] [facility] [place] [address] Block Sealer: You Bro DO CO2 [Moles/Vol] 17 mmol/L Low 20-31 [facility] Comment on above: Performed By: #### C DP, LIVP, BMPX #### [facility] [address] [facility] [place] [address] Block Sealer: You Bro DO Creatinine [Mass/Vol] 2.5 mg/dL High 0.7-1.2 [facility] Comment on above: Performed By: #### C DP, LIVP, BMPX #### [facility] [place] [facility] [place] [address] Block Sealer: You Bro DO GFR/1.73 sq M.predicted among non-blacks MDRD (S/P/Bld) [Vol rate/Area] 29 mL/min/{1.73_m2} Low >60 [facility] Comment on above: Result Comment: [...] tubular secretion. Performed By: #### C DP, LIVP, BMPX #### [facility] [address] [facility] [place] [address] Block Sealer: You Bro DO Glucose [Mass/Vol] 177 mg/dL High 70-99 [facility] Comment on above: Performed By: #### C DP, LIVP, BMPX #### [facility] [address] [facility] [place] [address] Block Sealer: You Bro DO Potassium [Moles/Vol] 4.0 mmol/L Normal 3.7-5.3 [facility] Comment on above: Performed By: #### C DP, LIVP, BMPX #### [facility] [address] [place] [address] Block Sealer: You Bro DO Protein [Mass/Vol] 8.3 g/dL Normal 6.4-8.3 [facility] Comment on above: Performed By: #### C DP, LIVP, BMPX #### [facility] [address] [place] [address] Block Sealer: You Bro DO Sodium [Moles/Vol] 135 mmol/L Normal 135-144 [facility] Comment on above: Performed By: #### C DP, LIVP, BMPX #### [facility] [address] [place] [address] Block Sealer: You Bro DO Urea nitrogen [Mass/Vol] 53 mg/dL High 8-23 [facility] Comment on above: Performed By: #### C DP, LIVP, BMPX #### [facility] [address] [place] [address] Block Sealer: You Bro DO Drug Scr, Abuse, Uron 2023 Amphetamine(s),Ur Negative Normal NEG [facility] Comment on above: Result Comment: (Positive cutoff 1000 ng/mL) Performed By: #### B MP, CBC #### [facility] [address] [place] [address] Block Sealer: You Bro DO Barbiturate(s),Ur Positive Abnormal NEG [facility] Comment on above: Result Comment: (Positive cutoff 200 ng/mL) Performed By: #### B MP, CBC #### [facility] [address] [place] [address] Block Sealer: You Bro DO Benzodiazepine(s) Negative Normal NEG [facility] Comment on above: Result Comment: (Positive cutoff 200 ng/mL) Performed By: #### B MP, CBC #### [facility] [address] [place] [address] Block Sealer: You Bro DO Cannabinoid(s),Ur Negative Normal [facility] Comment on above: Result Comment: (Positive cutoff 50 ng/mL) Performed By: #### B MP, CBC #### [facility] [address] [place] [address] Block Sealer: You Bro DO Cocaine Metabolite Negative [facility] Comment on above: Result Comment: (Positive cutoff 300 ng/mL) Performed By: #### B MP, CBC #### [facility] [address] [place] [address] Block Sealer: You Bro DO Fentanyl, Urine Negative [facility] Comment on above: Result Comment: (Positive cutoff 5 ng/ml) Performed By: #### B MP, CBC #### [facility] [address] [place] [address] Block Sealer: You Bro DO Interpretive Info Assay provides medical screening only. The absence of expected drug(s) and/or Normal [facility] Comment on above: Result Comment: meta bolite(s) may indicate diluted or adulterated urine, limitations of testing or timing of collection. Testing for legal purposes should be confirmed by another method. To request confirmation of test result, please call the lab within 7 days of sample submission. Performed By: #### B MP, CBC #### [facility] [address] [place] [address] Block Sealer: You Bro DO Methadone Ql (U) Negative Normal [facility] Comment on above: Result Comment: (Positive cutoff 300 ng/mL) Performed By: #### B MP, CBC #### [facility] [address] [place] [address] Block Sealer: You Bro DO Opiate(s), Ur Negative Normal NEG [facility] Comment on above: Result Comment: (Positive cutoff 300 ng/mL) Performed By: #### B MP, CBC #### [facility] [address] [place] [address] Block Sealer: You Bro DO Oxycodone, Urine Negative Normal NEG [facility] Comment on above: Result Comment: (Positive cutoff 100 ng/mL) Performed By: #### B MP, CBC #### [facility] [address] [place] [address] Block Sealer: You Bro DO Phencyclidine, Ur Negative Normal NEG [facility] Comment on above: Result Comment: (Positive cutoff 25 ng/mL) Performed By: #### B MP, CBC #### [facility] [address] [place] [address] Block Sealer: You Bro DO Ethanol Alcoholon 05-17-2023 Ethanol [Mass/Vol] mg/dL Normal <10 [facility] Comment on above: Performed By: #### Julia Christina CP, ALCB, CDP ####[facility] [id number] [place] [address] Lab Director: You Bro DO Ethanol percent <0.010 Normal [facility] Comment on above: Performed By: #### Julia Christina, CP, ALCB, CDP ####[facility] [address] [place] [address] Lab Director: You Bro DO Magnesiumon 05-17-2023 Magnesium [Mass/Vol] 2.2 mg/dL Normal 1.6-2.6 [facility] Comment on above: Performed By: #### C DP, LIVP, BMPX #### [facility] [address] [place] [address] Block Sealer: You Bro DO Alanine aminotransferase [En zymatic activity/volume] in Serum or PlasmaOrdered By: Saturnino Kaur on 02-22-2023 ALT [Catalytic activity/Vol] 18 U/L 7-52 [facility] Albumin [Mass/volume] in Ser um or Plasma by Bromocresol green (BCG) dye binding methoOrdered By: Saturnino Kaur on 02-22-2023 Albumin BCG dye [Mass/Vol] 4.4 g/dL 3.5-5.7 [facility] Alkaline phosphatase [Enzyma tic activity/volume] in Serum or PlasmaOrdered By: Saturnino Kaur on 02-22-2023 ALP [Catalytic activity/Vol] 109 U/L 34-104 [facility] Amphetamine Screen Ql (U)Ord ered By: Saturnino Kaur on 02-22-2023 Amphetamines Ql (U) Negative Negative [facility] Aspartate aminotransferase [ Enzymatic activity/volume] in Serum or PlasmaOrdered By: Saturnino Kaur on 02-22-2023 AST [Catalytic activity/Vol] 19 U/L 13-39 [facility] Automated erythrocytes count in urine sediment (number/area)Ordered By: Saturnino Kaur on 02-22-2023 RBC Auto (Urine sed) [#/Area] 1-2 [HPF] 0-4 [facility] Automated leukocytes count i n urine sediment (number/area)Ordered By: Saturnino Kaur on 02-22-2023 WBC Auto (Urine sed) [#/Area] Innumerable [HPF] 0-4 [facility] Barbiturates [Presence] in U rine by Screen methodOrdered By: Saturnino Kaur on 02-22-2023 Barbiturates Screen Ql (U) Negative Negative [facility] Basophils Auto (Bld) [#/Vol] Ordered By: Saturnino Kaur on 02-22-2023 Basophils (Bld) [#/Vol] 0.1 10*3/uL 0.0-0.2 [facility] Basophils/100 WBC Auto (Bld) Ordered By: Saturnino Kaur on 02-22-2023 Basophils/100 WBC (Bld) 0.7 % . [facility] Benzodiazepines Screen Ql (U )Ordered By: Saturnino Kaur on 02-22-2023 Benzodiazepines Ql (U) Negative Negative [facility] Benzoylecgonine [Presence] i n Urine by Screen methodOrdered By: Saturnino Kaur on 02-22-2023 Benzoylecgonine Screen Ql (U) Negative Negative [facility] Beta Hydroxybuterateon 02-22 Beta Hydroxybuterate 0.30 mmol/L High 0.02-0.27 [facility] Comment on above: Result Comment: PERF ORMED BY: [place] [address] PATHOLOGIST [employer]PER[employer] YOJANA GUADARRAMA M.D. Performed By: #### B HOB #### [address] Beta hydroxybutyrate [Moles/ volume] in Serum or PlasmaOrdered By: Saturnino Kaur on 02-22-2023 Beta hydroxybutyrate [Moles/Vol] 0.30 mmol/L 0.02-0.27 [facility] Bilirubin Test strip Ql (U)O rdered By: Saturnino Kaur on 02-22-2023 Bilirubin Ql (U) Negative Negative [facility] Bilirubin.total [Mass/volume ] in Serum or PlasmaOrdered By: Saturnino Kaur on 02-22-2023 Bilirubin [Mass/Vol] 0.6 mg/dL 0.3-1.0 [facility] CT abdomen pelvis wo conon 1 04-24-2022 CT abdomen pelvis wo con [facility] [place] [address] CT Scan Report Signed Patient: Steven Walden MR#: [id number] : 1960 Acct:[id number] Age/Sex: 63 / M ADM Date: 02/21/23 Loc: ER Room: Type: [facility] ER Attending Dr: Copies to: Saturnino Kaur Jr, MD Ordering Provider: Saturnino Kaur Jr, MD Date of Service: 11/14/23 CT/CT abdomen pelvis wo con: uti, hx [...] Impression dictated by: Jose Raul Meyers Jr., D.O.02/22/2023 8:49 AM Dictation Location: [place] [address] Transcribed By: [facility] 02/22/2349 Dictated By: Jose Raul Meyers Jr, DO 02/22/2345 Signed By: 02/22/23848 Normal [facility] Calcium [Mass/volume] in Ser um or PlasmaOrdered By: Saturnino Kaur on 02-22-2023 Calcium [Mass/Vol] 9.8 mg/dL 8.6-10.3 [facility] Cannabinoids [Presence] in U rine by Screen methodOrdered By: Saturnino Kaur on 02-22-2023 Cannabinoids Screen Ql (U) Negative Negative [facility] Comment on above: These are unconfirme d results and should not be used for legal purposes. Drug Cut-Off Concentration: AMPH 1000 ng/mL WILMER 200 ng/mL FELICIA 200 ng/mL COCM 300 ng/mL OP 300 ng/mL PCP 25 ng/mL THC 20 ng/mL Carbon dioxide, total [Moles /volume] in Serum or PlasmaOrdered By: Saturnino Kaur on 02-22-2023 CO2 [Moles/Vol] 14.9 mmol/L 21.0-31.0 [facility] Chloride [Moles/volume] in S russ or PlasmaOrdered By: Saturnino Kaur on 02-22-2023 Chloride [Moles/Vol] 106 mmol/L 98-107 [facility] Color Auto (U)Ordered By: Vish camarenaharpreet Elio on 02-22-2023 Color (U) Yellow Yellow [facility] Complete Blood Count Auto Di ffon 02-22-2023 Basophils (Bld) [#/Vol] 0.1 10*3/uL Normal 0.0-0.2 [facility] Comment on above: Result Comment: PERF ORMED BY: [facility] [address] [place] [address] PATHOLOGIST [employer] YOJANA GUADARRAMA M.D. Performed By: #### G LULS #### Point of Care testing , Basophils/100 WBC (Bld) 0.7 % Normal . [facility] Comment on above: Performed By: #### G LULS #### Point of Care testing , Eosinophils (Bld) [#/Vol] 0.2 10*3/uL Normal 0.0-0.45 [facility] Comment on above: Performed By: #### G LULS #### Point of Care testing , Eosinophils/100 WBC (Bld) 2.0 % Normal . [facility] Comment on above: Performed By: #### G LULS #### Point of Care testing , Erythrocyte distribution width (RBC) [Ratio] 14.7 % Normal 12.0-14.8 [facility] Comment on above: Performed By: #### G LULS #### Point of Care testing , Hematocrit (Bld) [Volume fraction] 38.4 % Low 38.8-50.0 [facility] Comment on above: Performed By: #### G LULS #### Point of Care testing , Hemoglobin (Bld) [Mass/Vol] 13.0 g/dL Normal 13.0-17.0 [facility] Comment on above: Performed By: #### G LULS #### Point of Care testing , Lymphocytes (Bld) [#/Vol] 3.7 10*3/uL Normal 1.00-4.8 [facility] Comment on above: Performed By: #### G LULS #### Point of Care testing , Lymphocytes/100 WBC (Bld) 31.4 % Normal . [facility] Comment on above: Performed By: #### G LULS #### Point of Care testing , MCH (RBC) [Entitic mass] 29.7 pg Normal 27.5-35.2 [facility] Comment on above: Performed By: #### G LULS #### Point of Care testing , MCV (RBC) [Entitic vol] 87.6 fL Normal 83.5-101 [facility] Comment on above: Performed By: #### G LULS #### Point of Care testing , Mean Corpuscular HGB Conc 33.9 g/dL Normal 32.5-35.6 [facility] Comment on above: Performed By: #### G LULS #### Point of Care testing , Monocytes (Bld) [#/Vol] 1.0 10*3/uL High 0.0-0.8 [facility] Comment on above: Performed By: #### G LULS #### Point of Care testing , Monocytes/100 WBC (Bld) 19.65 % Normal 0.00-20.00 [facility] Comment on above: Performed By: #### G LULS #### Point of Care testing , Monocytes/100 WBC (Bld) 8.5 % Normal . [facility] Comment on above: Performed By: #### G LULS #### Point of Care testing , Neutrophils (Bld) [#/Vol] 6.8 10*3/uL Normal 1.8-7.7 [facility] Comment on above: Performed By: #### G LULS #### Point of Care testing , Neutrophils/100 WBC (Bld) 57.4 % Normal . [facility] Comment on above: Performed By: #### G LULS #### Point of Care testing , NRBC% 0.1 /100{WBC} Normal 0-0.5 [facility] Comment on above: Performed By: #### G LULS #### Point of Care testing , Platelet mean volume (Bld) [Entitic vol] 8.6 fL Normal 6.6-10.1 [facility] Comment on above: Performed By: #### G LULS #### Point of Care testing , Platelets (Bld) [#/Vol] 333 10*3/uL Normal 150-450 [facility] Comment on above: Performed By: #### G LULS #### Point of Care testing , RBC (Bld) [#/Vol] 4.39 10*6/uL Normal 3.90-5.60 [facility] Comment on above: Performed By: #### G LULS #### Point of Care testing , WBC (Bld) [#/Vol] 11.8 10*3/uL High 4.1-10.5 [facility] Comment on above: Performed By: #### G LULS #### Point of Care testing , Comprehensive Metabolic Pane benoit 02-22-2023 Albumin [Mass/Vol] 4.4 g/dL Normal 3.5-5.7 [facility] Comment on above: Performed By: #### G LULS #### Point of Care testing , Albumin/Globulin [Mass ratio] 1.1 {ratio} Normal [facility] Comment on above: Performed By: #### G LULS #### Point of Care testing , ALP [Catalytic activity/Vol] 109 U/L High 34-104 [facility] Comment on above: Performed By: #### G LULS #### Point of Care testing , ALT [Catalytic activity/Vol] 18 U/L Normal 7-52 [facility] Comment on above: Performed By: #### G LULS #### Point of Care testing , Anion gap [Moles/Vol] 19.4 mmol/L High 6.0-15.0 [facility] Comment on above: Performed By: #### G LULS #### Point of Care testing , AST [Catalytic activity/Vol] 19 U/L Normal 13-39 [facility] Comment on above: Performed By: #### G LULS #### Point of Care testing , Bilirubin [Mass/Vol] 0.6 mg/dL Normal 0.3-1.0 [facility] Comment on above: Performed By: #### G LULS #### Point of Care testing , Calcium [Mass/Vol] 9.8 mg/dL Normal 8.6-10.3 [facility] Comment on above: Performed By: #### G LULS #### Point of Care testing , Chloride [Moles/Vol] 106 mmol/L Normal 98-107 [facility] Comment on above: Performed By: #### G LULS #### Point of Care testing , CO2 [Moles/Vol] 14.9 mmol/L Low 21.0-31.0 [facility] Comment on above: Performed By: #### G LULS #### Point of Care testing , Creatinine [Mass/Vol] 2.50 mg/dL High 0.70-1.30 [facility] Comment on above: Performed By: #### G LULS #### Point of Care testing , Creatinine Clr Calc Pharmacy 47.49 Normal [facility] Comment on above: Result Comment: PERF ORMED BY: [address] [place] [address] PATHOLOGIST [employer] YOJANA GUADARRAMA M.D. Performed By: #### G LULS #### Point of Care testing , GFR/1.73 sq M.predicted MDRD (S/P/Bld) [Vol rate/Area] 28.516 mL/min/{1.73_m2} Normal [facility] Comment on above: Performed By: #### G LULS #### Point of Care testing , Globulin (S) [Mass/Vol] 4.1 g/dL Normal [facility] Comment on above: Performed By: #### G LULS #### Point of Care testing , Glucose [Mass/Vol] 196 mg/dL High 70-100 [facility] Comment on above: Result Comment: [place] Glucose Reference Range is dependent on time and content of last meal. Glucose of more than 200 mg/dL in a nonstressed, ambulatory subject supports the diagnosis of Diabetes Mellitus. ADA recommended reference range Performed By: #### G LULS #### Point of Care testing , Potassium [Moles/Vol] 3.3 mmol/L Low 3.5-5.1 [facility] Comment on above: Performed By: #### G LULS #### Point of Care testing , Protein [Mass/Vol] 8.5 g/dL Normal 6.4-8.9 [facility] Comment on above: Performed By: #### G LULS #### Point of Care testing , Sodium [Moles/Vol] 137 mmol/L Normal 136-145 [facility] Comment on above: Performed By: #### G LULS #### Point of Care testing , Urea nitrogen [Mass/Vol] 46 mg/dL High 7-25 [facility] Comment on above: Performed By: #### G LULS #### Point of Care testing , Creatinine [Mass/volume] in Serum or PlasmaOrdered By: Saturnino Kaur on 02-22-2023 Creatinine [Mass/Vol] 2.50 mg/dL 0.70-1.30 [facility] Dipstick and Microscopicon 1 04-24-2022 Appearance (U) Cloudy Critically abnormal Clear [facility] Comment on above: Order Comment: Name Collection Type:: Voided Performed By: #### A DDONUAPLUS, URDS, CUU #### [facility] [address] [place] [address] [place] Bacteria,Urine None Seen Normal None Seen [facility] Comment on above: Order Comment: Name Collection Type:: Voided Performed By: #### A DDONUAPLUS, URDS, CUU #### [facility] [address] [place] [address] [place] Bilirubin,Urine Negative Normal Negative The [facility] Comment on above: Order Comment: Name Collection Type:: Voided Performed By: #### A DDONUAPLUS, URDS, CUU #### [facility] [address] [place] [address] [place] Color (U) Yellow Normal Yellow [facility] Comment on above: Order Comment: Name Collection Type:: Voided Performed By: #### A DDONUAPLUS, URDS, CUU #### [facility] [address] [place] [address] [place] Glucose Ql (U) Normal Normal Normal [facility] Comment on above: Order Comment: Name Collection Type:: Voided Performed By: #### A DDONUAPLUS, URDS, CUU #### [place] [address] [place] Hyaline Casts,Urine 0-8 Normal 0-8 [facility] Comment on above: Order Comment: Name Collection Type:: Voided Result Comment: PERF ORMED BY: [place] [address] PATHOLOGIST SUPER[employer] YOJANA GUADARRAMA M.D. Performed By: #### A DDONUAPLUS, URDS, CUU #### [place] [address] [place] Ketones Ql (U) Negative Normal Negative [facility] Comment on above: Order Comment: Name Collection Type:: Voided Performed By: #### A DDONUAPLUS, URDS, CUU #### [place] [address] [place] Leukocyte esterase Test strip Ql (U) 4+ High Negative [facility] Comment on above: Order Comment: Name Collection Type:: Voided Performed By: #### A DDONUAPLUS, URDS, CUU #### [place] [address] [place] Nitrite,Urine Negative Normal Negative [facility] Comment on above: Order Comment: Name Collection Type:: Voided Performed By: #### A DDONUAPLUS, URDS, CUU #### [place] [address] [place] Occult Blood,Urine 1+ High Negative [facility] Comment on above: Order Comment: Name Collection Type:: Voided Result Comment: PERF ORMED BY: [place] [address] PATHOLOGIST SU[employer] YOJANA GUADARRAMA M.D. Performed By: #### A DDONUAPLUS, URDS, CUU #### [address] pH (U) 5.5 [pH] Normal 5.0-9.0 [facility] Comment on above: Order Comment: Name Collection Type:: Voided Performed By: #### A DDONUAPLUS, URDS, CUU #### [address] Protein (U) [Mass/Vol] 30 mg/dL High Negative [facility] Comment on above: Order Comment: Name Collection Type:: Voided Performed By: #### A DDONUAPLUS, URDS, CUU #### [address] RBC,Urine 1-2 Normal 0-4 [facility] Comment on above: Order Comment: Name Collection Type:: Voided Performed By: #### A DDONUAPLUS, URDS, CUU #### [address] Specificy [place],Urine 1.016 Normal 1.001-1.030 [facility] Comment on above: Order Comment: Name Collection Type:: Voided Performed By: #### A DDONUAPLUS, URDS, CUU #### [address] Squamous Epithelial Cell,Urine 3-4 High 0-2 [facility] Comment on above: Order Comment: Name Collection Type:: Voided Performed By: #### A DDONUAPLUS, URDS, CUU #### [address] Urobilinogen,Urine Normal Normal Normal [facility] Comment on above: Order Comment: Name Collection Type:: Voided Performed By: #### A DDONUAPLUS, URDS, CUU #### [address] WBC,Urine Innumerable High 0-4 [facility] Comment on above: Order Comment: Name Collection Type:: Voided Performed By: #### A DDONUAPLUS, URDS, CUU #### [address] Drug Screen,Urineon 02-23-20 Amphetamine Screen,Urine Negative Normal Negative [facility] Comment on above: Performed By: #### A DDONUAPLUS, URDS, CUU #### [address] Barbiturate Screen,Urine Negative Normal Negative [facility] Comment on above: Performed By: #### A DDONUAPLUS, URDS, CUU #### [address] Benzodiazepines Screen,Urine Negative Normal Negative [facility] Comment on above: Performed By: #### A DDONUAPLUS, URDS, CUU #### [address] Cannabinoid Screen,Urine Negative Normal Negative [facility] Comment on above: Result Comment: Thes e are unconfirmed results and should not be used for legal purposes. Drug Cut-Off Concentration: AMPH 1000 ng/mL WILMER 200 ng/mL FELICIA 200 ng/mL COCM 300 ng/mL OP 300 ng/mL PCP 25 ng/mL THC 20 ng/mL PERFORMED BY: [place] [address] PATHOLOGIST SUPER[employer] YOJANA GUADARRAMA M.D. Performed By: #### A DDONUAPLUS, URDS, CUU #### [address] Cocaine Screen,Urine Negative Normal Negative [facility] Comment on above: Performed By: #### A DDONUAPLUS, URDS, CUU #### [place] [address] [place] Opiate Screen,Urine Negative Normal Negative [facility] Comment on above: Performed By: #### A DDONUAPLUS, URFRANK, CUU #### [facility] [address] Phencyclidine Screen,Urine Negative Normal Negative [facility] Comment on above: Performed By: #### A DDONUAPLUS, URDS, CUU #### [facility] [address] ECG 12 lead ECGon 02-22-2023 ECG 12 lead ECG [facility] Main [place] [address] [place] [address] Electrocardiograph Report Signed Patient: Steven Walden MR#: [id number] : 1960 Acct:[id number] Age/Sex: 63 / M ADM Date: 02/21/23 Loc: ER Room: Type: [facility] ER Attending Dr: Ordering Provider: Saturnino Kaur [...] longer present Confirmed by SATURNINO KAUR MD ([id number]) on 02/22/2023 6:41:07 AM Referred By: Electronically Signed By:SATURNINO KAUR MD Transcribed By: MUS Signed By Saturnino Kaur Jr, MD [id number] Normal [facility] Eosinophils Auto (Bld) [#/Vo l]Ordered By: Saturnino Kaur on 02-22-2023 Eosinophils (Bld) [#/Vol] 0.2 10*3/uL 0.0-0.45 [facility] Eosinophils/100 WBC Auto (Bl d)Ordered By: Saturnino Kaur on 02-22-2023 Eosinophils/100 WBC (Bld) 2.0 % . [facility] Erythrocyte distribution wid th Auto (RBC) [Ratio]Ordered By: Saturnino Kaur on 02-22-2023 Erythrocyte distribution width (RBC) [Ratio] 14.7 % 12.0-14.8 [facility] Ethanol [Mass/volume] in Ser um or PlasmaOrdered By: Saturnino Kaur on 02-22-2023 Ethanol [Mass/Vol] mg/dL [facility] Ethanol [Mass/Vol] TNP [facility] Comment on above: Test not performed Ethyl Alcohol Profileon 02-09 Ethanol [Mass/Vol] mg/dL Normal [facility] Comment on above: Performed By: #### G LULS #### Point of Care testing , Percent Ethanol Not performed Normal [facility] Comment on above: Result Comment: PERF ORMED BY: [facility] [address] [place] [address] PATHOLOGIST [employer] YOJANA GUADARRAMA M.D. Performed By: #### G LULS #### Point of Care testing , Globulin Calc (S) [Mass/Vol] Ordered By: Saturnino Kaur on 02-22-2023 Globulin (S) [Mass/Vol] 4.1 g/dL [facility] Glucose [Mass/volume] in Ser um or PlasmaOrdered By: Saturnino Kaur on 02-22-2023 Glucose [Mass/Vol] 196 mg/dL 70-100 [facility] Comment on above: ADA recommended refe rence rangeRandom Glucose Reference Range is dependent on time and content of last meal. Glucose of more than 200 mg/dL in a nonstressed, ambulatory subject supports the diagnosis of Diabetes Mellitus. Hematocrit Auto (Bld) [Volum e fraction]Ordered By: Saturnino Kaur on 02-22-2023 Hematocrit (Bld) [Volume fraction] 38.4 % 38.8-50.0 [facility] Hemoglobin [Mass/volume] in BloodOrdered By: Saturnino Kaur on 02-22-2023 Hemoglobin (Bld) [Mass/Vol] 13.0 g/dL 13.0-17.0 [facility] Ketones Auto test strip (U) [Mass/Vol]Ordered By: Saturnino Kaur on 02-22-2023 Ketones (U) [Mass/Vol] Negative Negative [facility] - UrinalysisOrder ed By: Saturnino Kaur on 02-22-2023 Hyaline casts LM Ql (Urine sed) 0-8 [LPF] 0-8 [facility] Leukocytes [#/volume] correc heather for nucleated erythrocytes in Blood by Automated counOrdered By: Saturnino Kaur on 02-22-2023 WBC corrected for nucl RBC Auto (Bld) [#/Vol] 11.8 10*3/uL 4.1-10.5 [facility] Lymphocytes Auto (Bld) [#/Vo l]Ordered By: Saturnino Kaur on 02-22-2023 Lymphocytes (Bld) [#/Vol] 3.7 10*3/uL 1.00-4.8 [facility] Lymphocytes/100 WBC Auto (Bl d)Ordered By: Saturnino Kaur on 02-22-2023 Lymphocytes/100 WBC (Bld) 31.4 % . [facility] MCH Auto (RBC) [Entitic mass ]Ordered By: Saturnino Kaur on 02-22-2023 MCH (RBC) [Entitic mass] 29.7 pg 27.5-35.2 [facility] MCHC Auto (RBC) [Mass/Vol]Or dered By: Saturnino Kaur on 02-22-2023 MCHC (RBC) [Mass/Vol] 33.9 g/dL 32.5-35.6 [facility] MCV Auto (RBC) [Entitic vol] Ordered By: Saturnino Kaur on 02-22-2023 MCV (RBC) [Entitic vol] 87.6 fL 83.5-101 [facility] Monocyte distribution width [Entitic volume] in Blood by AutomatedOrdered By: Saturnino Kaur on 02-22-2023 Monocyte distribution width Auto (Bld) [Entitic vol] 19.65 % 0.00-20.00 [facility] Monocytes Auto (Bld) [#/Vol] Ordered By: Saturnino Kaur on 02-22-2023 Monocytes (Bld) [#/Vol] 1.0 10*3/uL 0.0-0.8 [facility] Monocytes/100 WBC Auto (Bld) Ordered By: Saturnino Kaur on 02-22-2023 Monocytes/100 WBC (Bld) 8.5 % . [facility] Neutrophils Auto (Bld) [#/Vo l]Ordered By: Saturnino Kaur on 02-22-2023 Neutrophils (Bld) [#/Vol] 6.8 10*3/uL 1.8-7.7 [facility] Neutrophils/100 WBC Auto (Bl d)Ordered By: Saturnino Kaur on 02-22-2023 Neutrophils/100 WBC (Bld) 57.4 % . [facility] Nitrite Test strip Ql (U)Ord ered By: Saturnino Kaur on 02-22-2023 Nitrite Ql (U) Negative Negative [facility] No Panel InformationOrdered By: Saturnino Kaur on 02-22-2023 Estimated GFR (CKD-EPI) 28.516 mL/Min [facility] Creatinine Clearance (Chem 47.49 [facility] Nucleated erythrocytes [Pres ence] in Blood by Automated countOrdered By: Saturnino Kaur on 02-22-2023 Nucleated RBC Auto Ql (Bld) 0.1 /100{WBC} 0-0.5 [facility] Opiates [Presence] in Urine by Screen methodOrdered By: Saturnino Kaur on 02-22-2023 Opiates Screen Ql (U) Negative Negative [facility] Phencyclidine Screen Ql (U)O rdered By: Saturnino Kaur on 02-22-2023 Phencyclidine Ql (U) Negative Negative [facility] Platelet mean volume Auto (B ld) [Entitic vol]Ordered By: Saturnino Kaur on 02-22-2023 Platelet mean volume (Bld) [Entitic vol] 8.6 fL 6.6-10.1 [facility] Platelets Auto (Bld) [#/Vol] Ordered By: Saturnino Kaur on 02-22-2023 Platelets (Bld) [#/Vol] 333 10*3/uL 150-450 [facility] Potassium [Moles/volume] in Serum or PlasmaOrdered By: Saturnino Kaur on 02-22-2023 Potassium [Moles/Vol] 3.3 mmol/L 3.5-5.1 [facility] Protein Auto test strip (U) [Mass/Vol]Ordered By: Saturnino Kaur on 02-22-2023 Protein (U) [Mass/Vol] 30 mg/dL Negative Fi [facility] Protein [Mass/volume] in Ser um or PlasmaOrdered By: Saturnino Kaur on 02-22-2023 Protein [Mass/Vol] 8.5 g/dL 6.4-8.9 [facility] RBC Auto (Bld) [#/Vol]Ordere d By: Saturnino Kaur on 02-22-2023 RBC (Bld) [#/Vol] 4.39 10*6/uL 3.90-5.60 [facility] Serum or plasma albumin/glob ulin mass ratioOrdered By: Saturnino Kaur on 02-22-2023 Albumin/Globulin [Mass ratio] 1.1 {ratio} [facility] Serum or plasma anion gap de terminationOrdered By: Saturnino Kaur on 02-22-2023 Anion gap [Moles/Vol] 19.4 mmol/L 6.0-15.0 [facility] Sodium [Moles/volume] in Ser um or PlasmaOrdered By: Saturnino Kaur on 02-22-2023 Sodium [Moles/Vol] 137 mmol/L 136-145 [facility] Specific gravity Auto test s trip (U) [Rel density]Ordered By: Saturnino Kaur on 02-22-2023 Specific gravity (U) [Rel density] 1.016 1.001-1.030 [facility] Squamous epithelial cells de tection in urine sediment by light microscopyOrdered By: Saturnino Kaur on 02-22-2023 Epithelial cells.squamous LM Ql (Urine sed) 3-4 [HPF] 0-2 [facility] Troponin I High Sensitivityo n 02-22-2023 Troponin I High Sensitivity 4.4 pg/mL Normal 0.0-20.0 [facility] Comment on above: Result Comment: PERF ORMED BY: [place] [address] PATHOLOGIST [employer] YOJANA GUADARRAMA M.D. Performed By: #### H S TROP #### [address] Troponin I.cardiac [Mass/vol ume] in Serum or Plasma by Detection limit <= 0.01 ng/Ordered By: Saturnino Kaur on 02-22-2023 Troponin I.cardiac DL <= 0.01 ng/mL [Mass/Vol] 4.4 pg/mL 0.0-20.0 [facility] Urea nitrogen [Mass/volume] in Serum or PlasmaOrdered By: Saturnino Kaur on 02-22-2023 Urea nitrogen [Mass/Vol] 46 mg/dL 7-25 [facility] Urine Cultureon 02-22-2023 Bacteria identified Cx Nom (U) ORGANISM: Nida albicans (O:CANALB) [place] Count <10,000 PERFORMED BY: [facility] [address] [place] [address] PATHOLOGIST [employer] YOJANA GUADARRAMA M.D. Normal [facility] Comment on above: Performed By: #### A DDONUAPLUS, URDS, CUU #### [address] Urine bacteria detection by automated methodOrdered By: Saturnino Kaur on 02-22-2023 Bacteria Auto Ql (U) None seen None Seen [facility] Urine clarity by refractomet ry automatedOrdered By: Saturnino Kaur on 02-22-2023 Clarity Refractometry automated (U) Cloudy Clear [facility] Urine glucose measurement by automated test strip (mass/volume)Ordered By: Saturnino Kaur on 02-22-2023 Glucose Auto test strip (U) [Mass/Vol] Normal mg/dL Normal [facility] Urine hemoglobin detection b y automated test stripOrdered By: Saturnino Kaur on 02-22-2023 Hemoglobin Auto test strip Ql (U) 1+ Negative [facility] Urine leukocyte esterase det ection by automated test stripOrdered By: Saturnino Kaur on 02-22-2023 Leukocyte esterase Auto test strip Ql (U) 4+ Negative [facility] Urobilinogen Auto test strip (U) [Mass/Vol]Ordered By: Saturnino Kaur on 02-22-2023 Urobilinogen (U) [Mass/Vol] Normal mg/dL Normal [facility] WBC Auto (Bld) [#/Vol]Ordere d By: Saturnino Kaur on 02-22-2023 WBC (Bld) [#/Vol] 11.8 10*3/uL 4.1-10.5 [facility] pH Auto test strip (U)Ordere d By: Saturnino Kaur on 02-22-2023 pH (U) 5.5 [pH] 5.0-9.0 [facility] Glucose Glucometer (BldC) [M ass/Vol]Ordered By: Arash Carl on 02-13-2023 Glucose [Mass/Vol] 224 mg/dL [facility] Comment on above: Random Glucose Refer ence Range is dependent on time and content of last meal. Glucose of more than 200 mg/dL in a nonstressed, ambulatory subject supports the diagnosis of Diabetes Mellitus. Glucose Poct Glucometerson 1 04-15-2022 Glucose [Mass/Vol] 224 mg/dL Normal [facility] Comment on above: Result Comment: [place] [facility] Glucose Reference Range is dependent on time and content of last meal. Glucose of more than 200 mg/dL in a nonstressed, ambulatory subject supports the diagnosis of Diabetes Mellitus. PERFORMED BY: [address] [address] PATHOLOGIST [employer] YOJANA GUADARRAMA M.D. Performed By: #### G LULS #### Point of Care testing , Glucose Poct Glucometerson 1 04-14-2022 Glucose [Mass/Vol] 240 mg/dL Normal [facility] Comment on above: Result Comment: [place] [facility] Glucose Reference Range is dependent on time and content of last meal. Glucose of more than 200 mg/dL in a nonstressed, ambulatory subject supports the diagnosis of Diabetes Mellitus. PERFORMED BY: [address] [place] [address] PATHOLOGIST [employer] YOJANA GUADARRAMA M.D. Performed By: #### G LULS #### Point of Care testing , Glucose Poct Glucometerson 1 04-13-2022 Glucose [Mass/Vol] 195 mg/dL Normal [facility] Comment on above: Result Comment: [place] [facility] Glucose Reference Range is dependent on time and content of last meal. Glucose of more than 200 mg/dL in a nonstressed, ambulatory subject supports the diagnosis of Diabetes Mellitus. PERFORMED BY: [address] [place] [address] PATHOLOGIST [employer] YOJANA GUADARRAMA M.D. Performed By: #### G LULS #### Point of Care testing , Glucose Poct Glucometerson 1 04-12-2022 Glucose [Mass/Vol] 219 mg/dL Normal [facility] Comment on above: Result Comment: [facility] Glucose Reference Range is dependent on time and content of last meal. Glucose of more than 200 mg/dL in a nonstressed, ambulatory subject supports the diagnosis of Diabetes Mellitus. PERFORMED BY: [place] [address] PATHOLOGIST [employer] YOJANA GUADARRAMA M.D. Performed By: #### C BC #### [address] Basic Metabolic Panelon 11-0 Anion gap [Moles/Vol] 13.2 mmol/L Normal 6.0-15.0 [facility] Comment on above: Performed By: #### B MP #### [address] Calcium [Mass/Vol] 9.1 mg/dL Normal 8.6-10.3 [facility] Comment on above: Performed By: #### B MP #### [place] [address] [place] Chloride [Moles/Vol] 108 mmol/L High 98-107 [facility] Comment on above: Performed By: #### B MP #### [address] CO2 [Moles/Vol] 22.5 mmol/L Normal 21.0-31.0 [facility] Comment on above: Performed By: #### B MP #### [address] Creatinine [Mass/Vol] 2.68 mg/dL High 0.70-1.30 [facility] Comment on above: Performed By: #### B MP #### [address] Creatinine Clr Calc Pharmacy 44.00 Normal [facility] Comment on above: Result Comment: PERF ORMED BY: [place] [address] PATHOLOGIST [employer] YOJANA GUADARRAMA M.D. Performed By: #### B MP #### [facility] [address] [place] [address] [place] GFR/1.73 sq M.predicted MDRD (S/P/Bld) [Vol rate/Area] 26.234 mL/min/{1.73_m2} Normal [facility] Comment on above: Performed By: #### B MP #### [facility] [address] Glucose [Mass/Vol] 162 mg/dL High 70-100 [facility] Comment on above: Result Comment: [facility] Glucose Reference Range is dependent on time and content of last meal. Glucose of more than 200 mg/dL in a nonstressed, ambulatory subject supports the diagnosis of Diabetes Mellitus. ADA recommended reference range Performed By: #### B MP #### [facility] [address] Potassium [Moles/Vol] 3.7 mmol/L Normal 3.5-5.1 [facility] Comment on above: Performed By: #### B MP #### [facility] [address] Sodium [Moles/Vol] 140 mmol/L Normal 136-145 [facility] Comment on above: Performed By: #### B MP #### [facility] [address] Urea nitrogen [Mass/Vol] 39 mg/dL High 7-25 [facility] Comment on above: Performed By: #### B MP #### [facility] [address] [place] [address] [place] Calcium [Mass/volume] in Ser um or PlasmaOrdered By: Arash Henry on 02-09-2023 Calcium [Mass/Vol] 9.1 mg/dL 8.6-10.3 [facility] Carbon dioxide, total [Moles /volume] in Serum or PlasmaOrdered By: Arash Henry on 02-09-2023 CO2 [Moles/Vol] 22.5 mmol/L 21.0-31.0 [facility] Chloride [Moles/volume] in S russ or PlasmaOrdered By: Arash Henry on 02-09-2023 Chloride [Moles/Vol] 108 mmol/L 98-107 [facility] Creatinine [Mass/volume] in Serum or PlasmaOrdered By: Arash Henry on 02-09-2023 Creatinine [Mass/Vol] 2.68 mg/dL 0.70-1.30 [facility] ECG 12 lead ECGon 02-09-2023 ECG 12 lead ECG [facility] [place] [address] Electrocardiograph Report Signed Patient: Steven Walden MR#: [id number] : 1960 Acct:[id number] Age/Sex: 63 / M ADM Date: 02/07/23 Loc: Room: [address] [place] [address] Type: ADM IN Attending Dr: Arash Henry [...] change was found Confirmed by [id number] on 02/09/2023 3:26:40 PM Referred By: Electronically Signed By:LORY RAND MD [facility] Transcribed By: MUS Signed By Lory Rand MD, FACC 02/09/23 1526 Normal [facility] Glucose [Mass/volume] in Ser um or PlasmaOrdered By: Arash Henry on 02-09-2023 Glucose [Mass/Vol] 162 mg/dL 70-100 [facility] Comment on above: ADA recommended refe rence rangeRandom Glucose Reference Range is dependent on time and content of last meal. Glucose of more than 200 mg/dL in a nonstressed, ambulatory subject supports the diagnosis of Diabetes Mellitus. No Panel InformationOrdered By: Arash Henry on 02-09-2023 Estimated GFR (CKD-EPI) 26.234 mL/Min [facility] Creatinine Clearance (Chem 44.00 [facility] Potassium [Moles/volume] in Serum or PlasmaOrdered By: Arash Henry on 02-09-2023 Potassium [Moles/Vol] 3.7 mmol/L 3.5-5.1 [facility] Serum or plasma anion gap de terminationOrdered By: Arash Henry on 02-09-2023 Anion gap [Moles/Vol] 13.2 mmol/L 6.0-15.0 [facility] Sodium [Moles/volume] in Ser um or PlasmaOrdered By: Arash Henry on 02-09-2023 Sodium [Moles/Vol] 140 mmol/L 136-145 [facility] Urea nitrogen [Mass/volume] in Serum or PlasmaOrdered By: Arash Henry on 02-09-2023 Urea nitrogen [Mass/Vol] 39 mg/dL 7-25 [facility] Basophils Auto (Bld) [#/Vol] Ordered By: Arash Henry on 02-08-2023 Basophils (Bld) [#/Vol] 0.1 10*3/uL 0.0-0.2 [facility] Basophils/100 WBC Auto (Bld) Ordered By: Arash Henry on 02-08-2023 Basophils/100 WBC (Bld) 0.8 % . [facility] Complete Blood Count Auto Di ffon 02-08-2023 Basophils (Bld) [#/Vol] 0.1 10*3/uL Normal 0.0-0.2 [facility] Comment on above: Result Comment: PERF ORMED BY: [place] [address] PATHOLOGIST [employer]OJA[employer] GUADARRAMA M.D. Performed By: #### C #### [address] Basophils/100 WBC (Bld) 0.8 % Normal . [facility] Comment on above: Performed By: #### C BC #### [facility] [address] [place] [address] [place] Eosinophils (Bld) [#/Vol] 0.4 10*3/uL Normal 0.0-0.45 [facility] Comment on above: Performed By: #### C BC #### [facility] [address] Eosinophils/100 WBC (Bld) 3.8 % Normal . [facility] Comment on above: Performed By: #### C BC #### [address] Erythrocyte distribution width (RBC) [Ratio] 14.4 % Normal 12.0-14.8 [facility] Comment on above: Performed By: #### C BC #### [address] Hematocrit (Bld) [Volume fraction] 37.5 % Low 38.8-50.0 [facility] Comment on above: Performed By: #### C BC #### [address] Hemoglobin (Bld) [Mass/Vol] 12.9 g/dL Low 13.0-17.0 [facility] Comment on above: Performed By: #### C BC #### [address] Lymphocytes (Bld) [#/Vol] 2.7 10*3/uL Normal 1.00-4.8 [facility] Comment on above: Performed By: #### C BC #### [address] Lymphocytes/100 WBC (Bld) 28.9 % Normal . [facility] Comment on above: Performed By: #### C BC #### [address] MCH (RBC) [Entitic mass] 30.1 pg Normal 27.5-35.2 [facility] Comment on above: Performed By: #### C BC #### [address] MCV (RBC) [Entitic vol] 87.2 fL Normal 83.5-101 [facility] Comment on above: Performed By: #### C BC #### [address] Mean Corpuscular HGB Conc 34.5 g/dL Normal 32.5-35.6 [facility] Comment on above: Performed By: #### C BC #### [address] Monocytes (Bld) [#/Vol] 0.7 10*3/uL Normal 0.0-0.8 [facility] Comment on above: Performed By: #### C BC #### [address] Monocytes/100 WBC (Bld) 7.3 % Normal . [facility] Comment on above: Performed By: #### C BC #### [address] Neutrophils (Bld) [#/Vol] 5.5 10*3/uL Normal 1.8-7.7 [facility] Comment on above: Performed By: #### C BC #### [address] Neutrophils/100 WBC (Bld) 59.2 % Normal . [facility] Comment on above: Performed By: #### C BC #### [address] NRBC% 0.1 /100{WBC} Normal 0-0.5 [facility] Comment on above: Performed By: #### C BC #### [address] Platelet mean volume (Bld) [Entitic vol] 8.1 fL Normal 6.6-10.1 [facility] Comment on above: Performed By: #### C BC #### [address] Platelets (Bld) [#/Vol] 302 10*3/uL Normal 150-450 [facility] Comment on above: Performed By: #### C BC #### [facility] [address] RBC (Bld) [#/Vol] 4.30 10*6/uL Normal 3.90-5.60 [facility] Comment on above: Performed By: #### C BC #### [facility] [address] [place] [address] [place] WBC (Bld) [#/Vol] 9.3 10*3/uL Normal 4.1-10.5 [facility] Comment on above: Performed By: #### C BC #### [facility] [address] Eosinophils Auto (Bld) [#/Vo l]Ordered By: Arash Henry on 02-08-2023 Eosinophils (Bld) [#/Vol] 0.4 10*3/uL 0.0-0.45 [facility] Eosinophils/100 WBC Auto (Bl d)Ordered By: Arash Henry on 02-08-2023 Eosinophils/100 WBC (Bld) 3.8 % . [facility] Erythrocyte distribution wid th Auto (RBC) [Ratio]Ordered By: Arash Henry on 02-08-2023 Erythrocyte distribution width (RBC) [Ratio] 14.4 % 12.0-14.8 [facility] Hematocrit Auto (Bld) [Volum e fraction]Ordered By: Arash Henry on 02-08-2023 Hematocrit (Bld) [Volume fraction] 37.5 % 38.8-50.0 [facility] Hemoglobin [Mass/volume] in BloodOrdered By: Arash Henry on 02-08-2023 Hemoglobin (Bld) [Mass/Vol] 12.9 g/dL 13.0-17.0 [facility] Leukocytes [#/volume] correc heather for nucleated erythrocytes in Blood by Automated counOrdered By: Arash Henry on 02-08-2023 WBC corrected for nucl RBC Auto (Bld) [#/Vol] 9.3 10*3/uL 4.1-10.5 [facility] Lymphocytes Auto (Bld) [#/Vo l]Ordered By: Arash Henry on 02-08-2023 Lymphocytes (Bld) [#/Vol] 2.7 10*3/uL 1.00-4.8 [facility] Lymphocytes/100 WBC Auto (Bl d)Ordered By: Arash Henry on 02-08-2023 Lymphocytes/100 WBC (Bld) 28.9 % . [facility] MCH Auto (RBC) [Entitic mass ]Ordered By: Arash Henry on 02-08-2023 MCH (RBC) [Entitic mass] 30.1 pg 27.5-35.2 [facility] MCHC Auto (RBC) [Mass/Vol]Or dered By: Arash Henry on 02-08-2023 MCHC (RBC) [Mass/Vol] 34.5 g/dL 32.5-35.6 [facility] MCV Auto (RBC) [Entitic vol] Ordered By: Arash Henry on 02-08-2023 MCV (RBC) [Entitic vol] 87.2 fL 83.5-101 [facility] Monocytes Auto (Bld) [#/Vol] Ordered By: Arash Henry on 02-08-2023 Monocytes (Bld) [#/Vol] 0.7 10*3/uL 0.0-0.8 [facility] Monocytes/100 WBC Auto (Bld) Ordered By: Arash Henry on 02-08-2023 Monocytes/100 WBC (Bld) 7.3 % . [facility] Neutrophils Auto (Bld) [#/Vo l]Ordered By: Arash Henry on 02-08-2023 Neutrophils (Bld) [#/Vol] 5.5 10*3/uL 1.8-7.7 [facility] Neutrophils/100 WBC Auto (Bl d)Ordered By: Arash Henry on 02-08-2023 Neutrophils/100 WBC (Bld) 59.2 % . [facility] Nucleated erythrocytes [Pres ence] in Blood by Automated countOrdered By: Arash Henry on 02-08-2023 Nucleated RBC Auto Ql (Bld) 0.1 /100{WBC} 0-0.5 [facility] Platelet mean volume Auto (B ld) [Entitic vol]Ordered By: Arash Henry on 02-08-2023 Platelet mean volume (Bld) [Entitic vol] 8.1 fL 6.6-10.1 [facility] Platelets Auto (Bld) [#/Vol] Ordered By: Arash Henry on 02-08-2023 Platelets (Bld) [#/Vol] 302 10*3/uL 150-450 [facility] RBC Auto (Bld) [#/Vol]Ordere d By: Arash Henry on 02-08-2023 RBC (Bld) [#/Vol] 4.30 10*6/uL 3.90-5.60 [facility] WBC Auto (Bld) [#/Vol]Ordere d By: Arash Henry on 02-08-2023 WBC (Bld) [#/Vol] 9.3 10*3/uL 4.1-10.5 [facility] Alanine aminotransferase [En zymatic activity/volume] in Serum or PlasmaOrdered By: Ewa Kim on 02-07-2023 ALT [Catalytic activity/Vol] 10 U/L 7-52 [facility] Albumin [Mass/volume] in Ser um or Plasma by Bromocresol green (BCG) dye binding methoOrdered By: Ewa Kim on 02-07-2023 Albumin BCG dye [Mass/Vol] 4.3 g/dL 3.5-5.7 [facility] Alkaline phosphatase [Enzyma tic activity/volume] in Serum or PlasmaOrdered By: Ewa Kim on 02-07-2023 ALP [Catalytic activity/Vol] 123 U/L 34-104 [facility] Amphetamine Screen Ql (U)Ord ered By: Ewa Kim on 02-07-2023 Amphetamines Ql (U) Negative Negative [facility] Aspartate aminotransferase [ Enzymatic activity/volume] in Serum or PlasmaOrdered By: Ewa Kim on 02-07-2023 AST [Catalytic activity/Vol] 15 U/L 13-39 [facility] Automated erythrocytes count in urine sediment (number/area)Ordered By: Ewa Kim on 02-07-2023 RBC Auto (Urine sed) [#/Area] 0-1 [HPF] 0-4 [facility] Automated leukocytes count i n urine sediment (number/area)Ordered By: Ewa Bullimore on 02-07-2023 WBC Auto (Urine sed) [#/Area] Innumerable [HPF] 0-4 [facility] Barbiturates [Presence] in U rine by Screen methodOrdered By: Wea Bullimore on 02-07-2023 Barbiturates Screen Ql (U) Negative Negative [facility] Basophils Auto (Bld) [#/Vol] Ordered By: Ewa Bullimore on 02-07-2023 Basophils (Bld) [#/Vol] 0.1 10*3/uL 0.0-0.2 [facility] Basophils/100 WBC Auto (Bld) Ordered By: Ewa Bullimore on 02-07-2023 Basophils/100 WBC (Bld) 0.9 % . [facility] Benzodiazepines Screen Ql (U )Ordered By: Ewa Bullimore on 02-07-2023 Benzodiazepines Ql (U) Negative Negative [facility] Benzoylecgonine [Presence] i n Urine by Screen methodOrdered By: Ewa Bullimore on 02-07-2023 Benzoylecgonine Screen Ql (U) Negative Negative [facility] Bilirubin Test strip Ql (U)O rdered By: Ewa Bullimore on 02-07-2023 Bilirubin Ql (U) Negative Negative [facility] Bilirubin.total [Mass/volume ] in Serum or PlasmaOrdered By: Ewa Bullimore on 02-07-2023 Bilirubin [Mass/Vol] 0.7 mg/dL 0.3-1.0 [facility] Calcium [Mass/volume] in Ser um or PlasmaOrdered By: Ewa Bullimore on 02-07-2023 Calcium [Mass/Vol] 9.8 mg/dL 8.6-10.3 [facility] Cannabinoids [Presence] in U rine by Screen methodOrdered By: Ewa Bullimore on 02-07-2023 Cannabinoids Screen Ql (U) Negative Negative [facility] Comment on above: These are unconfirme d results and should not be used for legal purposes. Drug Cut-Off Concentration: AMPH 1000 ng/mL WILMER 200 ng/mL FELICIA 200 ng/mL COCM 300 ng/mL OP 300 ng/mL PCP 25 ng/mL THC 20 ng/mL Carbon dioxide, total [Moles /volume] in Serum or PlasmaOrdered By: Ewa Kim on 02-07-2023 CO2 [Moles/Vol] 18.4 mmol/L 21.0-31.0 [facility] Chloride [Moles/volume] in S russ or PlasmaOrdered By: Ewa Kim on 02-07-2023 Chloride [Moles/Vol] 102 mmol/L 98-107 [facility] Cholesterol [Mass/volume] in Serum or PlasmaOrdered By: Arash Henry on 02-07-2023 Cholesterol [Mass/Vol] 142 mg/dL 140-200 [facility] Comment on above: Chol less than 200 m g/dl low riskChol 201-239 mg/dl borderline riskChol 240 mg/dl and greater high risk Cholesterol in LDL Calc [Mas s/Vol]Ordered By: Arash Henry on 02-07-2023 Cholesterol in LDL [Mass/Vol] 58 mg/dL 0-100 [facility] Comment on above: LDL ATP III CLASSIFI CATIONLDL less than 100 mg/dL OptimalLDL 100-129 mg/dL Near or above optimalLDL 130-159 mg/dL Borderline highLDL 160-189 mg/dL HighLDL greater than 189 mg/dL Very high Cholesterol in VLDL Calc [Ma ss/Vol]Ordered By: Arash Henry on 02-07-2023 Cholesterol in VLDL [Mass/Vol] 53 mg/dL [facility] Color Auto (U)Ordered By: Jailyn Kim on 02-07-2023 Color (U) Yellow Yellow [facility] Complete Blood Count Auto Di ffon 02-07-2023 Basophils (Bld) [#/Vol] 0.1 10*3/uL Normal 0.0-0.2 [facility] Comment on above: Result Comment: PERF ORMED BY: [facility] [address] [place] [address] PATHOLOGIST [employer] YOJANA GUADARRAMA M.D. Performed By: #### C BC #### [place] [address] [place] Basophils/100 WBC (Bld) 0.9 % Normal . [facility] Comment on above: Performed By: #### C BC #### [place] [address] [place] Eosinophils (Bld) [#/Vol] 0.3 10*3/uL Normal 0.0-0.45 [facility] Comment on above: Performed By: #### C BC #### [place] [address] [place] Eosinophils/100 WBC (Bld) 2.1 % Normal . [facility] Comment on above: Performed By: #### C BC #### [address] Erythrocyte distribution width (RBC) [Ratio] 14.2 % Normal 12.0-14.8 [facility] Comment on above: Performed By: #### C BC #### [address] Hematocrit (Bld) [Volume fraction] 37.7 % Low 38.8-50.0 [facility] Comment on above: Performed By: #### C BC #### [address] Hemoglobin (Bld) [Mass/Vol] 13.3 g/dL Normal 13.0-17.0 [facility] Comment on above: Performed By: #### C BC #### [place] [address] [place] Lymphocytes (Bld) [#/Vol] 4.0 10*3/uL Normal 1.00-4.8 [facility] Comment on above: Performed By: #### C BC #### [place] [address] [place] Lymphocytes/100 WBC (Bld) 32.2 % Normal . [facility] Comment on above: Performed By: #### C BC #### [address] MCH (RBC) [Entitic mass] 30.2 pg Normal 27.5-35.2 [facility] Comment on above: Performed By: #### C BC #### [address] MCV (RBC) [Entitic vol] 85.7 fL Normal 83.5-101 [facility] Comment on above: Performed By: #### C BC #### [address] Mean Corpuscular HGB Conc 35.2 g/dL Normal 32.5-35.6 [facility] Comment on above: Performed By: #### C BC #### [address] Monocytes (Bld) [#/Vol] 1.2 10*3/uL High 0.0-0.8 [facility] Comment on above: Performed By: #### C BC #### [address] Monocytes/100 WBC (Bld) 17.26 % Normal 0.00-20.00 [facility] Comment on above: Performed By: #### C BC #### [address] Monocytes/100 WBC (Bld) 9.4 % Normal . [facility] Comment on above: Performed By: #### C BC #### [address] Neutrophils (Bld) [#/Vol] 6.8 10*3/uL Normal 1.8-7.7 [facility] Comment on above: Performed By: #### C BC #### [address] Neutrophils/100 WBC (Bld) 55.4 % Normal . [facility] Comment on above: Performed By: #### C BC #### [address] NRBC% 0.0 /100{WBC} Normal 0-0.5 [facility] Comment on above: Performed By: #### C BC #### [address] Platelet mean volume (Bld) [Entitic vol] 8.4 fL Normal 6.6-10.1 [facility] Comment on above: Performed By: #### C BC #### [address] Platelets (Bld) [#/Vol] 332 10*3/uL Normal 150-450 [facility] Comment on above: Performed By: #### C BC #### [address] RBC (Bld) [#/Vol] 4.40 10*6/uL Normal 3.90-5.60 [facility] Comment on above: Performed By: #### C BC #### [address] WBC (Bld) [#/Vol] 12.4 10*3/uL High 4.1-10.5 [facility] Comment on above: Performed By: #### C BC #### [address] Comprehensive Metabolic Pane benoit 02-07-2023 Albumin [Mass/Vol] 4.3 g/dL Normal 3.5-5.7 [facility] Comment on above: Performed By: #### C BC #### [address] Albumin/Globulin [Mass ratio] 1.1 {ratio} Normal [facility] Comment on above: Performed By: #### C BC #### [address] ALP [Catalytic activity/Vol] 123 U/L High 34-104 [facility] Comment on above: Performed By: #### C BC #### [address] ALT [Catalytic activity/Vol] 10 U/L Normal 7-52 [facility] Comment on above: Performed By: #### C BC #### [address] Anion gap [Moles/Vol] 17.4 mmol/L High 6.0-15.0 [facility] Comment on above: Performed By: #### C BC #### [address] AST [Catalytic activity/Vol] 15 U/L Normal 13-39 [facility] Comment on above: Performed By: #### C BC #### [address] Bilirubin [Mass/Vol] 0.7 mg/dL Normal 0.3-1.0 [facility] Comment on above: Performed By: #### C BC #### [address] Calcium [Mass/Vol] 9.8 mg/dL Normal 8.6-10.3 [facility] Comment on above: Performed By: #### C BC #### [address] Chloride [Moles/Vol] 102 mmol/L Normal 98-107 [facility] Comment on above: Performed By: #### C BC #### [address] CO2 [Moles/Vol] 18.4 mmol/L Low 21.0-31.0 [facility] Comment on above: Performed By: #### C BC #### [address] Creatinine [Mass/Vol] 2.87 mg/dL High 0.70-1.30 [facility] Comment on above: Performed By: #### C BC #### [address] Creatinine Clr Calc Pharmacy 41.08 Normal [facility] Comment on above: Result Comment: PERF ORMED BY: [place] [address] PATHOLOGIST [employer] YOJANA GUADARRAMA M.D. Performed By: #### C BC #### [facility] [address] [place] [address] [place] GFR/1.73 sq M.predicted MDRD (S/P/Bld) [Vol rate/Area] 24.164 mL/min/{1.73_m2} Normal [facility] Comment on above: Performed By: #### C BC #### [address] Globulin (S) [Mass/Vol] 3.8 g/dL Normal [facility] Comment on above: Performed By: #### C BC #### [address] Glucose [Mass/Vol] 63 mg/dL Low 70-100 [facility] Comment on above: Result Comment: [facility] Glucose Reference Range is dependent on time and content of last meal. Glucose of more than 200 mg/dL in a nonstressed, ambulatory subject supports the diagnosis of Diabetes Mellitus. ADA recommended reference range Performed By: #### C BC #### [address] Potassium [Moles/Vol] 2.8 mmol/L Off scale low 3.5-5.1 [facility] Comment on above: Result Comment: Crit ical Result Called to and read back by: IONA HIGGINBOTHAM at: 02/07/2023 14:36:39 by:[id number] Performed By: #### C BC #### [address] Protein [Mass/Vol] 8.1 g/dL Normal 6.4-8.9 [facility] Comment on above: Performed By: #### C BC #### [address] Sodium [Moles/Vol] 135 mmol/L Low 136-145 [facility] Comment on above: Performed By: #### C BC #### [address] Urea nitrogen [Mass/Vol] 50 mg/dL High 7-25 [facility] Comment on above: Performed By: #### C BC #### [facility] [address] [place] [id number] [facility] Creatinine [Mass/volume] in Serum or PlasmaOrdered By: Ewa Kim on 02-07-2023 Creatinine [Mass/Vol] 2.87 mg/dL 0.70-1.30 [facility] Dipstick and Microscopicon 1 Appearance (U) Cloudy Critically abnormal Clear [facility] Comment on above: Order Comment: Name Collection Type:: Clean-Voided Midstream Performed By: #### C BC #### [facility] [address] [place] [address] [place] Bacteria,Urine 2+ High None Seen [facility] Comment on above: Order Comment: Name Collection Type:: Clean-Voided Midstream Performed By: #### C BC #### [facility] [address] [place] [address] [place] Bilirubin,Urine Negative Normal Negative The [facility] Comment on above: Order Comment: Name Collection Type:: Clean-Voided Midstream Performed By: #### C BC #### [facility] [address] [place] [address] [place] Color (U) Yellow Normal Yellow [facility] Comment on above: Order Comment: Name Collection Type:: Clean-Voided Midstream Performed By: #### C BC #### [facility] [address] [place] [id number] [place] Glucose Ql (U) Normal Normal Normal [facility] Comment on above: Order Comment: Name Collection Type:: Clean-Voided Midstream Performed By: #### C BC #### [facility] [address] [place] [id number] [place] Hyaline Casts,Urine 0-8 Normal 0-8 [facility] Comment on above: Order Comment: Name Collection Type:: Clean-Voided Midstream Result Comment: PERF ORMED BY: [place] [address] PATHOLOGIST [employer] YOJANA GUADARRAMA M.D. Performed By: #### C BC #### [address] Ketones Ql (U) Negative Normal Negative [facility] Comment on above: Order Comment: Name Collection Type:: Clean-Voided Midstream Performed By: #### C BC #### [address] Leukocyte esterase Test strip Ql (U) 4+ High Negative [facility] Comment on above: Order Comment: Name Collection Type:: Clean-Voided Midstream Performed By: #### C BC #### [place] [address] [place] Nitrite,Urine Negative Normal Negative [facility] Comment on above: Order Comment: Name Collection Type:: Clean-Voided Midstream Performed By: #### C BC #### [address] Occult Blood,Urine Trace High Negative [facility] Comment on above: Order Comment: Name Collection Type:: Clean-Voided Midstream Result Comment: PERF ORMED BY: [place] [address] PATHOLOGIST [employer] YOJANA GUADARRAMA M.D. Performed By: #### C BC #### [address] pH (U) 5.5 [pH] Normal 5.0-9.0 [facility] Comment on above: Order Comment: Name Collection Type:: Clean-Voided Midstream Performed By: #### C BC #### [place] [address] [place] Protein,Urine Trace High Negative [facility] Comment on above: Order Comment: Name Collection Type:: Clean-Voided Midstream Performed By: #### C BC #### [place] [address] [place] RBC LM.HPF (Urine sed) [#/Area] 0 /[HPF] Normal 0-4 [facility] Comment on above: Order Comment: Name Collection Type:: Clean-Voided Midstream Performed By: #### C BC #### [address] Specificy [place],Urine 1.012 Normal 1.001-1.030 [facility] Comment on above: Order Comment: Name Collection Type:: Clean-Voided Midstream Performed By: #### C BC #### [place] [address] [place] Squamous Epithelial Cell,Urine 3-4 High 0-2 [facility] Comment on above: Order Comment: Name Collection Type:: Clean-Voided Midstream Performed By: #### C BC #### [place] [address] [place] Urobilinogen,Urine Normal Normal Normal [facility] Comment on above: Order Comment: Name Collection Type:: Clean-Voided Midstream Performed By: #### C BC #### [place] [address] [place] WBC,Urine Innumerable High 0-4 [facility] Comment on above: Order Comment: Name Collection Type:: Clean-Voided Midstream Performed By: #### C BC #### [place] [address] [place] Drug Screen,Urineon 02-08-20 23 Amphetamine Screen,Urine Negative Normal Negative [facility] Comment on above: Performed By: #### C BC #### [place] [address] [place] Barbiturate Screen,Urine Negative Normal Negative [facility] Comment on above: Performed By: #### C BC #### [place] [address] [place] Benzodiazepines Screen,Urine Negative Normal Negative [facility] Comment on above: Performed By: #### C BC #### [place] [address] [place] Cannabinoid Screen,Urine Negative Normal Negative [facility] Comment on above: Result Comment: Thes e are unconfirmed results and should not be used for legal purposes. Drug Cut-Off Concentration: AMPH 1000 ng/mL WILMER 200 ng/mL FELICIA 200 ng/mL COCM 300 ng/mL OP 300 ng/mL PCP 25 ng/mL THC 20 ng/mL PERFORMED BY: [place] [address] PATHOLOGIST SU[employer] YOJANA GUADARRAMA M.D. Performed By: #### C BC #### [address] Cocaine Screen,Urine Negative Normal Negative [facility] Comment on above: Performed By: #### C BC #### [address] Opiate Screen,Urine Negative Normal Negative [facility] Comment on above: Performed By: #### C BC #### [address] Phencyclidine Screen,Urine Negative Normal Negative [facility] Comment on above: Performed By: #### C BC #### [address] Eosinophils Auto (Bld) [#/Vo l]Ordered By: Ewa Stevenimore on 02-07-2023 Eosinophils (Bld) [#/Vol] 0.3 10*3/uL 0.0-0.45 [facility] Eosinophils/100 WBC Auto (Bl d)Ordered By: Ewa Bullimore on 02-07-2023 Eosinophils/100 WBC (Bld) 2.1 % . [facility] Erythrocyte distribution wid th Auto (RBC) [Ratio]Ordered By: Ewa Bullimore on 02-07-2023 Erythrocyte distribution width (RBC) [Ratio] 14.2 % 12.0-14.8 [facility] Ethanol [Mass/volume] in Ser um or PlasmaOrdered By: Ewa Bullimore on 02-07-2023 Ethanol [Mass/Vol] mg/dL [facility] Ethanol [Mass/Vol] TNP [facility] Comment on above: Test not performed Ethyl Alcohol Profileon 01-11 Ethanol [Mass/Vol] mg/dL Normal [facility] Comment on above: Performed By: #### C BC #### [address] Percent Ethanol Not performed Normal [facility] Comment on above: Result Comment: PERF ORMED BY: [facility] [address] [facility] [place] [address] PATHOLOGIST SU[employer] YOJANA GUADARRAMA M.D. Performed By: #### C BC #### [facility] [address] Globulin Calc (S) [Mass/Vol] Ordered By: Ewa Kim on 02-07-2023 Globulin (S) [Mass/Vol] 3.8 g/dL [facility] Glucose [Mass/volume] in Ser um or PlasmaOrdered By: Ewa Kim on 02-07-2023 Glucose [Mass/Vol] 63 mg/dL 70-100 [facility] Comment on above: ADA recommended refe rence rangeRandom Glucose Reference Range is dependent on time and content of last meal. Glucose of more than 200 mg/dL in a nonstressed, ambulatory subject supports the diagnosis of Diabetes Mellitus. Hematocrit Auto (Bld) [Volum e fraction]Ordered By: Ewa Kim on 02-07-2023 Hematocrit (Bld) [Volume fraction] 37.7 % 38.8-50.0 [facility] Hemoglobin [Mass/volume] in BloodOrdered By: Ewa Kim on 02-07-2023 Hemoglobin (Bld) [Mass/Vol] 13.3 g/dL 13.0-17.0 [facility] Ketones Auto test strip (U) [Mass/Vol]Ordered By: Ewa Kim on 02-07-2023 Ketones (U) [Mass/Vol] Negative Negative [facility] - UrinalysisOrder ed By: Ewa Kim on 02-07-2023 Hyaline casts LM Ql (Urine sed) 0-8 [LPF] 0-8 [facility] Leukocytes [#/volume] correc heather for nucleated erythrocytes in Blood by Automated counOrdered By: Ewa Butterfieldore on 02-07-2023 WBC corrected for nucl RBC Auto (Bld) [#/Vol] 12.4 10*3/uL 4.1-10.5 [facility] Lipid Panelon 02-07-2023 Cholesterol [Mass/Vol] 142 mg/dL Normal 140-200 [facility] Comment on above: Result Comment: Chol less than 200 mg/dl low risk Chol 201-239 mg/dl borderline risk Chol 240 mg/dl and greater high risk Performed By: #### C BC #### [facility] [address] Cholesterol in HDL [Mass/Vol] 31 mg/dL Normal 23-92 [facility] Comment on above: Result Comment: HDL CHOL ATP-III CLASSIFICATION Cardiovascular Risk HDL > or equal to 60 mg/dL LOW HDL < 40 mg/dL HIGH Performed By: #### C BC #### [facility] [address] Cholesterol.total/Chol esterol in HDL [Mass ratio] 4.6 {ratio} Normal <5.0 [facility] Comment on above: Performed By: #### C BC #### [facility] [address] LDL Cholesterol,Calculated 58 mg/dL Normal 0-100 [facility] Comment on above: Result Comment: LDL ATP III CLASSIFICATION LDL less than 100 mg/dL Optimal LDL 100-129 mg/dL Near or above optimal LDL 130-159 mg/dL Borderline high LDL 160-189 mg/dL High LDL greater than 189 mg/dL Very high Performed By: #### C BC #### [facility] [address] [place] [id number] [facility] Triglyceride w/Reflex 265 mg/dL High 0-149 [facility] Comment on above: Result Comment: TRIG ATP III CLASSIFICATION TRIG less than 150 mg/dL Normal TRIG 150-199 mg/dL Borderline high TRIG 200-500 mg/dL High TRIG greater than 500 mg/dL Very high Standard traceable to the Center for Disease Conrtrol and Prevention (CDC) test method. Performed By: #### C BC #### [facility] [address] [place] [id number] [facility] VLDL CHOLESTEROL 53 mg/dL Normal [facility] Comment on above: Performed By: #### C BC #### [facility] [address] [place] [id number] [place] Lymphocytes Auto (Bld) [#/Vo l]Ordered By: Ewa Bullimore on 02-07-2023 Lymphocytes (Bld) [#/Vol] 4.0 10*3/uL 1.00-4.8 [facility] Lymphocytes/100 WBC Auto (Bl d)Ordered By: Ewa Bullimore on 02-07-2023 Lymphocytes/100 WBC (Bld) 32.2 % . [facility] MCH Auto (RBC) [Entitic mass ]Ordered By: Ewa Bullimore on 02-07-2023 MCH (RBC) [Entitic mass] 30.2 pg 27.5-35.2 [facility] MCHC Auto (RBC) [Mass/Vol]Or dered By: Ewa Bullimore on 02-07-2023 MCHC (RBC) [Mass/Vol] 35.2 g/dL 32.5-35.6 [facility] MCV Auto (RBC) [Entitic vol] Ordered By: Ewa Bullimore on 02-07-2023 MCV (RBC) [Entitic vol] 85.7 fL 83.5-101 [facility] Monocyte distribution width [Entitic volume] in Blood by AutomatedOrdered By: Ewa Bullimore on 02-07-2023 Monocyte distribution width Auto (Bld) [Entitic vol] 17.26 % 0.00-20.00 [facility] Monocytes Auto (Bld) [#/Vol] Ordered By: Ewa Bullimore on 02-07-2023 Monocytes (Bld) [#/Vol] 1.2 10*3/uL 0.0-0.8 [facility] Monocytes/100 WBC Auto (Bld) Ordered By: Ewa Bullimore on 02-07-2023 Monocytes/100 WBC (Bld) 9.4 % . [facility] Neutrophils Auto (Bld) [#/Vo l]Ordered By: Ewa Bullimore on 02-07-2023 Neutrophils (Bld) [#/Vol] 6.8 10*3/uL 1.8-7.7 [facility] Neutrophils/100 WBC Auto (Bl d)Ordered By: Ewa Bullimore on 02-07-2023 Neutrophils/100 WBC (Bld) 55.4 % . [facility] Nitrite Test strip Ql (U)Ord ered By: Ewa Kim on 02-07-2023 Nitrite Ql (U) Negative Negative [facility] No Panel InformationOrdered By: Ewa Kim on 02-07-2023 Estimated GFR (CKD-EPI) 24.164 mL/Min [facility] Creatinine Clearance (Chem 41.08 [facility] Nucleated erythrocytes [Pres ence] in Blood by Automated countOrdered By: Ewa Stevenimore on 02-07-2023 Nucleated RBC Auto Ql (Bld) 0.0 /100{WBC} 0-0.5 [facility] Opiates [Presence] in Urine by Screen methodOrdered By: Ewa Kim on 02-07-2023 Opiates Screen Ql (U) Negative Negative [facility] Phencyclidine Screen Ql (U)O rdered By: Ewa Stevenimore on 02-07-2023 Phencyclidine Ql (U) Negative Negative [facility] Platelet mean volume Auto (B ld) [Entitic vol]Ordered By: Ewa Stevenimore on 02-07-2023 Platelet mean volume (Bld) [Entitic vol] 8.4 fL 6.6-10.1 [facility] Platelets Auto (Bld) [#/Vol] Ordered By: Ewa Butterfieldore on 02-07-2023 Platelets (Bld) [#/Vol] 332 10*3/uL 150-450 [facility] Potassium [Moles/volume] in Serum or PlasmaOrdered By: Ewa Kim on 02-07-2023 Potassium [Moles/Vol] 2.8 mmol/L 3.5-5.1 [facility] Comment on above: Critical Result Call ed to and read back by: IONA HIGGINBOTHAM at: 02/07/2023 14:36:39 by:[id number] Protein Auto test strip (U) [Mass/Vol]Ordered By: Ewa Kim on 02-07-2023 Protein (U) [Mass/Vol] Trace mg/dL Negative [facility] Protein [Mass/volume] in Ser um or PlasmaOrdered By: Ewa Bullimore on 02-07-2023 Protein [Mass/Vol] 8.1 g/dL 6.4-8.9 [facility] RBC Auto (Bld) [#/Vol]Ordere d By: Ewa Kim on 02-07-2023 RBC (Bld) [#/Vol] 4.40 10*6/uL 3.90-5.60 [facility] Serum or plasma albumin/glob ulin mass ratioOrdered By: Ewa Kim on 02-07-2023 Albumin/Globulin [Mass ratio] 1.1 {ratio} [facility] Serum or plasma anion gap de terminationOrdered By: Ewa Kim on 02-07-2023 Anion gap [Moles/Vol] 17.4 mmol/L 6.0-15.0 [facility] Serum or plasma high density lipoprotein (HDL) cholesterol measurementOrdered By: Arash Henry on 02-07-2023 Cholesterol in HDL [Mass/Vol] 31 mg/dL 23-92 [facility] Comment on above: HDL CHOL ATP-III CLA SSIFICATION Cardiovascular RiskHDL > or equal to 60 mg/dL LOWHDL < 40 mg/dL HIGH Serum or plasma total choles terol/high density lipoprotein (HDL) cholesterol mass ratOrdered By: Arash Henry on 02-07-2023 Cholesterol.total/Chol esterol in HDL [Mass ratio] 4.6 {ratio} <5.0 [facility] Sodium [Moles/volume] in Ser um or PlasmaOrdered By: Ewa Kim on 02-07-2023 Sodium [Moles/Vol] 135 mmol/L 136-145 [facility] Specific gravity Auto test s trip (U) [Rel density]Ordered By: Ewa Kim on 02-07-2023 Specific gravity (U) [Rel density] 1.012 1.001-1.030 [facility] Squamous epithelial cells de tection in urine sediment by light microscopyOrdered By: Ewa Kim on 02-07-2023 Epithelial cells.squamous LM Ql (Urine sed) 3-4 [HPF] 0-2 [facility] Thyroid Stim Hormone w/Rflxo n 02-07-2023 Thyroid Stim Hormone w/Rflx 4.29 u[iU]/mL Normal 0.45-5.33 [facility] Comment on above: Performed By: #### C BC #### [facility] [address] [place] [address] Thyrotropin [Units/volume] i n Serum or PlasmaOrdered By: Ewa Kim on 02-07-2023 TSH Qn 4.29 m[IU]/L 0.45-5.33 [facility] Triglyceride [Mass/volume] i n Serum or PlasmaOrdered By: Arash Henry on 02-07-2023 Triglyceride [Mass/Vol] 265 mg/dL 0-149 [facility] Comment on above: TRIG ATP III CLASSIF ICATIONTRIG less than 150 mg/dL NormalTRIG 150-199 mg/dL Borderline highTRIG 200-500 mg/dL High TRIG greater than 500 mg/dL Very highStandard traceable to the Center for Disease Conrtrol and Prevention (CDC) test method. Urea nitrogen [Mass/volume] in Serum or PlasmaOrdered By: Ewa Kim on 02-07-2023 Urea nitrogen [Mass/Vol] 50 mg/dL 7-25 [facility] Urine Cultureon 02-07-2023 Bacteria identified Cx Nom (U) ORGANISM: Nida albicans (O:CANALB) [place] Count 30,000 PERFORMED BY: [place] [address] PATHOLOGIST SUPER[employer] YOJANA GUADARRAMA M.D. Normal [facility] Comment on above: Performed By: #### C BC #### [address] Urine bacteria detection by automated methodOrdered By: Ewa Kim on 02-07-2023 Bacteria Auto Ql (U) 2+ None Seen [facility] Urine clarity by refractomet ry automatedOrdered By: Ewa Kim on 02-07-2023 Clarity Refractometry automated (U) Cloudy Clear [facility] Urine culture routineOrdered By: Ewa Kim on 02-07-2023 Bacteria identified Cx Nom (U) Nida albicans [facility] Urine glucose measurement by automated test strip (mass/volume)Ordered By: Ewa Kim on 02-07-2023 Glucose Auto test strip (U) [Mass/Vol] Normal mg/dL Normal [facility] Urine hemoglobin detection b y automated test stripOrdered By: Ewa Stevenmarito on 02-07-2023 Hemoglobin Auto test strip Ql (U) Trace Negative [facility] Urine leukocyte esterase det ection by automated test stripOrdered By: Ewa Stevenmarito on 02-07-2023 Leukocyte esterase Auto test strip Ql (U) 4+ Negative [facility] Urobilinogen Auto test strip (U) [Mass/Vol]Ordered By: Ewaroosevelt Kim on 02-07-2023 Urobilinogen (U) [Mass/Vol] Normal mg/dL Normal [facility] Vitamin D 25 Hydroxy Totalon 02-07-2023 Vitamin D 25 Hydroxy Total 27.2 ng/mL Low 30-100 [facility] Comment on above: Result Comment: HEATHER MIN D STATUS 25(OH)VITAMIN D RANGE (ng/mL) Deficient <20 Insufficient 20 to <30 Sufficient 30 to 100 Reference: Arron Chao, Elizabeth CARBAJAL, et al. Evaluation,treatment, and prevention of vitamin D deficiency; an Endocrine Society clinical practice guideline. JCEM. 2010; 96(7):1911-. PERFORMED BY: [place] [address] PATHOLOGIST SUPER[employer] YOJANA GUADARRAMA M.D. Performed By: #### C #### [address] Vitamin D+Metabolites [Mass/ volume] in Serum or PlasmaOrdered By: Ewa Kim on 02-07-2023 Vitamin D+Metabolites [Mass/Vol] 27.2 ng/mL 30-100 [facility] Comment on above: VITAMIN D STATUS 25( OH)VITAMIN D RANGE (ng/mL) Deficient <20 Insufficient 20 to <30Sufficient 30 to 100Reference: Arron Chao, Elizabeth CARBAJAL, et al. Evaluation,treatment, and prevention of vitamin D deficiency; an Endocrine Society clinical practice guideline. JCEM. 2010; 96(7):1911-. WBC Auto (Bld) [#/Vol]Ordere d By: Ewa Bullimore on 02-07-2023 WBC (Bld) [#/Vol] 12.4 10*3/uL 4.1-10.5 [facility] pH Auto test strip (U)Ordere d By: Ewa Stevenimore on 02-07-2023 pH (U) 5.5 [pH] 5.0-9.0 [facility] B-Type Natriuretic Peptideon 01-23-2023 Natriuretic peptide B (Bld) [Mass/Vol] 43.0 pg/mL Normal 5-100 [facility] Comment on above: Result Comment: PERF ORMED BY: [place] [address] PATHOLOGIST SU[employer] YOJANA GUADARRAMA M.D. Performed By: #### H S TROP #### [address] Basic Metabolic Panelon 01-09 Anion gap [Moles/Vol] 21.7 mmol/L High 6.0-15.0 [facility] Comment on above: Performed By: #### H S TROP #### [address] Calcium [Mass/Vol] 9.7 mg/dL Normal 8.6-10.3 [facility] Comment on above: Performed By: #### H S TROP #### [place] [address] [place] Chloride [Moles/Vol] 104 mmol/L Normal 98-107 [facility] Comment on above: Performed By: #### H S TROP #### [place] [address] [place] CO2 [Moles/Vol] 15.4 mmol/L Low 21.0-31.0 [facility] Comment on above: Performed By: #### H S TROP #### [address] Creatinine [Mass/Vol] 2.90 mg/dL High 0.70-1.30 [facility] Comment on above: Performed By: #### H S TROP #### [address] Creatinine Clr Calc Pharmacy 40.73 Normal [facility] Comment on above: Result Comment: PERF ORMED BY: [place] [address] PATHOLOGIST SU[employer] YOJANA GUADARRAMA M.D. Performed By: #### H S TROP #### [address] GFR/1.73 sq M.predicted MDRD (S/P/Bld) [Vol rate/Area] 23.864 mL/min/{1.73_m2} Normal [facility] Comment on above: Performed By: #### H S TROP #### [address] Glucose [Mass/Vol] 203 mg/dL High 70-100 [facility] Comment on above: Result Comment: [place] Glucose Reference Range is dependent on time and content of last meal. Glucose of more than 200 mg/dL in a nonstressed, ambulatory subject supports the diagnosis of Diabetes Mellitus. ADA recommended reference range Performed By: #### H S TROP #### [address] Potassium [Moles/Vol] 3.1 mmol/L Low 3.5-5.1 [facility] Comment on above: Performed By: #### H S TROP #### [address] Sodium [Moles/Vol] 138 mmol/L Normal 136-145 [facility] Comment on above: Performed By: #### H S TROP #### [address] Urea nitrogen [Mass/Vol] 42 mg/dL High 7-25 [facility] Comment on above: Performed By: #### H S TROP #### [place] [address] [place] Basophils Auto (Bld) [#/Vol] Ordered By: Jessica Black on 01-23-2023 Basophils (Bld) [#/Vol] 0.1 10*3/uL 0.0-0.2 [facility] Basophils/100 WBC Auto (Bld) Ordered By: Jessica Black on 01-23-2023 Basophils/100 WBC (Bld) 0.9 % . [facility] Calcium [Mass/volume] in Ser um or PlasmaOrdered By: Jessica Black on 01-23-2023 Calcium [Mass/Vol] 9.7 mg/dL 8.6-10.3 [facility] Carbon dioxide, total [Moles /volume] in Serum or PlasmaOrdered By: Jessica Black on 01-23-2023 CO2 [Moles/Vol] 15.4 mmol/L 21.0-31.0 [facility] Chloride [Moles/volume] in S rsus or PlasmaOrdered By: Jessica Black on 01-23-2023 Chloride [Moles/Vol] 104 mmol/L 98-107 [facility] Complete Blood Count Auto Di ffon 01-23-2023 Basophils (Bld) [#/Vol] 0.1 10*3/uL Normal 0.0-0.2 [facility] Comment on above: Result Comment: PERF ORMED BY: [place] [address] PATHOLOGIST SU[employer] YOJANA GUADARRAMA M.D. Performed By: #### H S TROP #### [place] [address] [place] Basophils/100 WBC (Bld) 0.9 % Normal . [facility] Comment on above: Performed By: #### H S TROP #### [facility] [address] [place] [address] [place] Eosinophils (Bld) [#/Vol] 0.3 10*3/uL Normal 0.0-0.45 [facility] Comment on above: Performed By: #### H S TROP #### [place] [address] [place] Eosinophils/100 WBC (Bld) 2.6 % Normal . [facility] Comment on above: Performed By: #### H S TROP #### [address] Erythrocyte distribution width (RBC) [Ratio] 14.1 % Normal 12.0-14.8 [facility] Comment on above: Performed By: #### H S TROP #### [address] Hematocrit (Bld) [Volume fraction] 39.6 % Normal 38.8-50.0 [facility] Comment on above: Performed By: #### H S TROP #### [address] Hemoglobin (Bld) [Mass/Vol] 13.4 g/dL Normal 13.0-17.0 [facility] Comment on above: Performed By: #### H S TROP #### [address] Lymphocytes (Bld) [#/Vol] 3.7 10*3/uL Normal 1.00-4.8 [facility] Comment on above: Performed By: #### H S TROP #### [address] Lymphocytes/100 WBC (Bld) 31.2 % Normal . [facility] Comment on above: Performed By: #### H S TROP #### [address] MCH (RBC) [Entitic mass] 29.4 pg Normal 27.5-35.2 [facility] Comment on above: Performed By: #### H S TROP #### [address] MCV (RBC) [Entitic vol] 86.9 fL Normal 83.5-101 [facility] Comment on above: Performed By: #### H S TROP #### [address] Mean Corpuscular HGB Conc 33.9 g/dL Normal 32.5-35.6 [facility] Comment on above: Performed By: #### H S TROP #### [place] [id number] [place] Monocytes (Bld) [#/Vol] 1.1 10*3/uL High 0.0-0.8 [facility] Comment on above: Performed By: #### H S TROP #### [address] Monocytes/100 WBC (Bld) 20.47 % High 0.00-20.00 [facility] Comment on above: Result Comment: For adults in ED, MDW > 20.0 may be associated with a higher risk of sepsis during the first 12 hrs of hospital admission Performed By: #### H S TROP #### [place] [address] [place] Monocytes/100 WBC (Bld) 9.1 % Normal . [facility] Comment on above: Performed By: #### H S TROP #### [place] [address] [place] Neutrophils (Bld) [#/Vol] 6.6 10*3/uL Normal 1.8-7.7 [facility] Comment on above: Performed By: #### H S TROP #### [place] [address] [place] Neutrophils/100 WBC (Bld) 56.2 % Normal . [facility] Comment on above: Performed By: #### H S TROP #### [place] [address] [place] NRBC% 0.1 /100{WBC} Normal 0-0.5 [facility] Comment on above: Performed By: #### H S TROP #### [place] [address] [place] Platelet mean volume (Bld) [Entitic vol] 8.4 fL Normal 6.6-10.1 [facility] Comment on above: Performed By: #### H S TROP #### [place] [address] [place] Platelets (Bld) [#/Vol] 315 10*3/uL Normal 150-450 [facility] Comment on above: Performed By: #### H S TROP #### [facility] [address] RBC (Bld) [#/Vol] 4.56 10*6/uL Normal 3.90-5.60 [facility] Comment on above: Performed By: #### H S TROP #### [facility] [address] [place] [address] [place] WBC (Bld) [#/Vol] 11.7 10*3/uL High 4.1-10.5 [facility] Comment on above: Performed By: #### H S TROP #### [facility] [address] Creatinine [Mass/volume] in Serum or PlasmaOrdered By: Jessica Black on 01-23-2023 Creatinine [Mass/Vol] 2.90 mg/dL 0.70-1.30 [facility] ECG 12 lead ECGon 01-23-2023 ECG 12 lead ECG [facility] [place] [address] [place] [address] Electrocardiograph Report Signed Patient: Steven Walden MR#: [id number] : 1960 Acct:[id number] Age/Sex: 63 / M ADM Date: 01/23/23 Loc: ER Room: Type: [facility] ER Attending Dr: Ordering Provider: Jessica Black [...] MUS Signed By Jessica Black MD 01/09 Normal [facility] ECG 12 lead ECG [facility] [place] [address] Electrocardiograph Report Signed Patient: Steven Walden MR#: [id number] : 1960 Acct:[id number] Age/Sex: 63 / M ADM Date: 01/23/23 Loc: ER Room: Type: [facility] ER Attending Dr: Ordering Provider: Jessica Black [...] injury or acute infarct Prolonged QT ACUTE PA / STEMI Consider right ventricular involvement in acute inferior infarct Abnormal ECG No previous ECGs available Confirmed by JESSICA BLACK MD ([id number]) on 01/24/2023 2:19:05 AM Referred By: Electronically Signed By:JESSICA BLACK MD Transcribed By: MUS Signed By Jessica Black MD 01/09 Normal [facility] Eosinophils Auto (Bld) [#/Vo l]Ordered By: Jessica Black on 01-23-2023 Eosinophils (Bld) [#/Vol] 0.3 10*3/uL 0.0-0.45 [facility] Eosinophils/100 WBC Auto (Bl d)Ordered By: Jessica Black on 01-23-2023 Eosinophils/100 WBC (Bld) 2.6 % . [facility] Erythrocyte distribution wid th Auto (RBC) [Ratio]Ordered By: Jessica Black on 01-23-2023 Erythrocyte distribution width (RBC) [Ratio] 14.1 % 12.0-14.8 [facility] Glucose [Mass/volume] in Ser um or PlasmaOrdered By: Jessica Black on 01-23-2023 Glucose [Mass/Vol] 203 mg/dL 70-100 [facility] Comment on above: ADA recommended refe rence rangeRandom Glucose Reference Range is dependent on time and content of last meal. Glucose of more than 200 mg/dL in a nonstressed, ambulatory subject supports the diagnosis of Diabetes Mellitus. Hematocrit Auto (Bld) [Volum e fraction]Ordered By: Jessica Black on 01-23-2023 Hematocrit (Bld) [Volume fraction] 39.6 % 38.8-50.0 [facility] Hemoglobin [Mass/volume] in BloodOrdered By: Jessica Black on 01-23-2023 Hemoglobin (Bld) [Mass/Vol] 13.4 g/dL 13.0-17.0 [facility] Laboratory - Chemistry and C hemistry - challengeOrdered By: Jessica Black on 01-23-2023 CO2 [Moles/Vol] 16.1 mmol/L 24.0-29.0 [facility] HCO3 (Bld) [Moles/Vol] 15.6 mmol/L 23.0-29.0 [facility] Leukocytes [#/volume] correc heather for nucleated erythrocytes in Blood by Automated counOrdered By: Jessica Black on 01-23-2023 WBC corrected for nucl RBC Auto (Bld) [#/Vol] 11.7 10*3/uL 4.1-10.5 [facility] Lymphocytes Auto (Bld) [#/Vo l]Ordered By: Jessica Black on 01-23-2023 Lymphocytes (Bld) [#/Vol] 3.7 10*3/uL 1.00-4.8 [facility] Lymphocytes/100 WBC Auto (Bl d)Ordered By: Jessica Black on 01-23-2023 Lymphocytes/100 WBC (Bld) 31.2 % . [facility] MCH Auto (RBC) [Entitic mass ]Ordered By: Jessica Black on 01-23-2023 MCH (RBC) [Entitic mass] 29.4 pg 27.5-35.2 [facility] MCHC Auto (RBC) [Mass/Vol]Or dered By: Jessica Black on 01-23-2023 MCHC (RBC) [Mass/Vol] 33.9 g/dL 32.5-35.6 [facility] MCV Auto (RBC) [Entitic vol] Ordered By: Jessica Black on 01-23-2023 MCV (RBC) [Entitic vol] 86.9 fL 83.5-101 [facility] Monocyte distribution width [Entitic volume] in Blood by AutomatedOrdered By: Jessica Black on 01-23-2023 Monocyte distribution width Auto (Bld) [Entitic vol] 20.47 % 0.00-20.00 [facility] Comment on above: For adults in ED, MD W > 20.0 may be associated with a higher risk of sepsis during the first 12 hrs of hospital admission Monocytes Auto (Bld) [#/Vol] Ordered By: Jessica Black on 01-23-2023 Monocytes (Bld) [#/Vol] 1.1 10*3/uL 0.0-0.8 [facility] Monocytes/100 WBC Auto (Bld) Ordered By: Jessica Black on 01-23-2023 Monocytes/100 WBC (Bld) 9.1 % . [facility] Natriuretic peptide B [Mass/ Vol]Ordered By: Jessica Black on 01-23-2023 Natriuretic peptide B (Bld) [Mass/Vol] 43.0 pg/mL 5-100 [facility] Neutrophils Auto (Bld) [#/Vo l]Ordered By: Jessica Black on 01-23-2023 Neutrophils (Bld) [#/Vol] 6.6 10*3/uL 1.8-7.7 [facility] Neutrophils/100 WBC Auto (Bl d)Ordered By: Jessica Black on 01-23-2023 Neutrophils/100 WBC (Bld) 56.2 % . [facility] No Panel InformationOrdered By: Jessica Black on 01-23-2023 Blood Gas Critical Value See comment [facility] Comment on above: Critical Value vicente d on: 01/23/2023 at 17:09 Blood Gas Sample Site Venous Fir [facility] FiO2 21 % [facility] Venous Blood Base Excess -2.8 mmol/L -3.0-3.0 [facility] Venous Blood Oxygen Content 6.2 mmol/L 6.6-9.7 [facility] Venous Blood Oxygen Saturation 74.5 % 73.0-76.0 [facility] Venous Blood Partial Pressure CO2 15.9 mm[Hg] 38.0-50.0 [facility] Venous Blood Partial Pressure O2 32.5 mm[Hg] 35.0-45.0 [facility] Venous Blood pH 7.61 7.32-7.43 [facility] Estimated GFR (CKD-EPI) 23.864 mL/Min [facility] Creatinine Clearance (Chem 40.73 [facility] Nucleated erythrocytes [Pres ence] in Blood by Automated countOrdered By: Jessica Black on 01-23-2023 Nucleated RBC Auto Ql (Bld) 0.1 /100{WBC} 0-0.5 [facility] Platelet mean volume Auto (B ld) [Entitic vol]Ordered By: Jessica Black on 01-23-2023 Platelet mean volume (Bld) [Entitic vol] 8.4 fL 6.6-10.1 [facility] Platelets Auto (Bld) [#/Vol] Ordered By: Jessica Black on 01-23-2023 Platelets (Bld) [#/Vol] 315 10*3/uL 150-450 [facility] Potassium [Moles/volume] in Serum or PlasmaOrdered By: Jessica Black on 01-23-2023 Potassium [Moles/Vol] 3.1 mmol/L 3.5-5.1 [facility] RBC Auto (Bld) [#/Vol]Ordere d By: Jessica Black on 01-23-2023 RBC (Bld) [#/Vol] 4.56 10*6/uL 3.90-5.60 [facility] Serum or plasma anion gap de terminationOrdered By: Jessica Black on 01-23-2023 Anion gap [Moles/Vol] 21.7 mmol/L 6.0-15.0 [facility] Sodium [Moles/volume] in Ser um or PlasmaOrdered By: Jessica Black on 01-23-2023 Sodium [Moles/Vol] 138 mmol/L 136-145 [facility] Troponin I High Sensitivityo n 01-23-2023 Troponin I High Sensitivity 7.3 pg/mL Normal 0.0-20.0 [facility] Comment on above: Result Comment: PERF ORMED BY: [facility] [address] [place] [address] PATHOLOGIST [employer] YOJANA GUADARRAMA M.D. Performed By: #### H S TROP #### [address] Troponin I.cardiac [Mass/vol ume] in Serum or Plasma by Detection limit <= 0.01 ng/Ordered By: Jessica Black on 01-23-2023 Troponin I.cardiac DL <= 0.01 ng/mL [Mass/Vol] 7.3 pg/mL 0.0-20.0 [facility] Urea nitrogen [Mass/volume] in Serum or PlasmaOrdered By: Jessica Black on 01-23-2023 Urea nitrogen [Mass/Vol] 42 mg/dL 11-02 [facility] Venous Blood [place] CO2 [Moles/Vol] 16.1 mmol/L Low 24.0-29.0 [facility] Comment on above: Performed By: #### V BG #### Point of Care testing , HCO3 (Bld) [Moles/Vol] 15.6 mmol/L Low 23.0-29.0 [facility] Comment on above: Performed By: #### V BG #### Point of Care testing , Respiratory Critical Normal [facility] Comment on above: Result Comment: Crit ical Value called on: 01/23/2023 at 17:09 PERFORMED BY: [place] [address] PATHOLOGIST [employer] YOJANA GUADARRAMA M.D. Performed By: #### V BG #### Point of Care testing , VBG Base Excess -2.8 mmol/L Normal -3.0-3.0 [facility] Comment on above: Performed By: #### V BG #### Point of Care testing , VBG Draw Site Venous Normal [facility] Comment on above: Performed By: #### V BG #### Point of Care testing , VBG Frac Inspired O2 21 % Normal [facility] Comment on above: Performed By: #### V BG #### Point of Care testing , VBG O2 Content 6.2 mmol/L Low 6.6-9.7 [facility] Comment on above: Performed By: #### V BG #### Point of Care testing , VBG Oxygen Saturation 74.5 % Normal 73.0-76.0 [facility] Comment on above: Performed By: #### V BG #### Point of Care testing , VBG PCO2 15.9 mm[Hg] Off scale low 38.0-50.0 [facility] Comment on above: Performed By: #### V BG #### Point of Care testing , VBG PH Venous PH 7.61 Off scale high 7.32-7.43 [facility] Comment on above: Performed By: #### V BG #### Point of Care testing , VBG PO2 32.5 mm[Hg] Low 35.0-45.0 [facility] Comment on above: Performed By: #### V BG #### Point of Care testing , WBC Auto (Bld) [#/Vol]Ordere d By: Jessica Black on 01-23-2023 WBC (Bld) [#/Vol] 11.7 10*3/uL 4.1-10.5 [facility] XR chest 1V portableon 01-23 XR chest 1V portable [facility] [place] [address] XRay Report Signed Patient: Steven Walden MR#: [id number] : 1960 Acct:[id number] Age/Sex: 63 / M ADM Date: 01/23/23 [...] Steven Cardona M.D.01/23/2023 4:47 PM Dictation Location: [facility]--13 Transcribed By: [facility] 01/23/231646 Dictated By: Steven Cardona II, MD 01/23/231645 Signed By: 01/23/231646 Normal [facility] Telemedicineon 09-24-2022 Telemedicine [id number] Steven Walden 1960 [facility] Provider Department [place] 09/24/2022 MYLA [facility] CARD [facility] Family History Family history unknown: Yes Level of Service:05825 [place] OFFICE/OUTPATIENT ESTABLISHED MOD MDM 30-39 MIN Reason for Visit and Comments: Telehealth Audio/video Visit [871] Normal [facility] PROF CHEM 8 (BAS METB)on Anion gap [Moles/Vol] 16.6 mmol/L Normal [facility] Comment on above: Performed By: #### C BC #### [facility] [address] [place] [address] Dr. Kalie Rodas Calcium [Mass/Vol] 9.2 mg/dL Normal 8.5-10.1 [facility] Comment on above: Performed By: #### C BC #### [facility] [address] [place] [address] [address] Kalie Rodas Chloride [Moles/Vol] 101 mmol/L Normal 98-107 [facility] Comment on above: Performed By: #### C BC #### [facility] [address] [place] [address] [address] Kalie Rodas CO2 [Moles/Vol] 26.0 mmol/L Normal 21.0-32.0 [facility] Comment on above: Performed By: #### C BC #### [facility] [address] [place] [address] [address] Kalie Rodas Creatinine [Mass/Vol] 3.76 mg/dL Critically high 0.70-1.30 [facility] Comment on above: Performed By: #### C BC #### [facility] [address] [place] [address] [address] Kalie Rodas EGFR-AF SAUDI ARABIAN 20 mL/min/1.73m2 Critically low >=60 [facility] Comment on above: Performed By: #### C BC #### [facility] [address] [place] [address] [address] Kalie Rodas EGFR-NON AF SAUDI ARABIAN 17 mL/min/1.73m2 Critically low >=60 [facility] Comment on above: Performed By: #### C BC #### [facility] [address] [place] [address] [address] Kalie Rodas Glucose [Mass/Vol] 244 mg/dL Critically high 74-106 [facility] Comment on above: Performed By: #### C BC #### [facility] [address] [place] [address] [address] Kalie Rodas Potassium [Moles/Vol] 3.6 mmol/L Normal 3.5-5.1 [facility] Comment on above: Performed By: #### C BC #### [facility] [address] [place] [address] [address] Kalie Rodas Sodium [Moles/Vol] 140 mmol/L Normal 136-145 [facility] Comment on above: Performed By: #### C BC #### [facility] [address] [place] [address] [address] Kalie Rodas Urea nitrogen [Mass/Vol] 53.0 mg/dL Critically high 7.0-18.0 [facility] Comment on above: Performed By: #### C BC #### [facility] [address] [place] [address] [address] Kalie Rodas Urea nitrogen/Creatinine [Mass ratio] 14.1 mg/mg Normal [facility] Comment on above: Performed By: #### C BC #### [facility] [address] [place] [id number] Kalie Rodas Office Visiton 08-09-2022 Follow-up visit [id number] Steven Walden 1960 Date Provider Department [place] 08/09/2022 [id number] Family History Family history unknown: Yes Level of Service:65551 [place] OFFICE/OUTPATIENT ESTABLISHED MOD MDM 30-39 MIN Reason for Visit and Comments: Hypertension [481315] Normal [facility] Cult,Bloodon 07-20-2022 Cult,Blood Specimen Description .BLOOD Special Requests R HAND 10ML Culture NO GROWTH 5 DAYS Report Status FINAL 07/20/2022 Normal [facility] Comment on above: Performed By: #### B MP, CBC #### [facility] [address] [place] [address] Block Sealer: Rodrick Jones MD Cult,Blood Specimen Description .BLOOD Culture NO GROWTH 5 DAYS Report Status FINAL 07/20/2022 [facility] Comment on above: Performed By: #### B MP, CBC #### [facility] [address] [place] [address] Block Sealer: Rodrick Jones MD Cult,Blood Specimen Description .BLOOD Special Requests RIGHT FOREARM 2ML Culture NO GROWTH 5 DAYS Report Status FINAL 07/20/2022 Normal [facility] Comment on above: Performed By: #### B MP, CBC #### [address] [address] Block Sealer: Rodrick Jones MD Cult,Blood Specimen Description .BLOOD Special Requests RIGHT AC 3ML Culture NO GROWTH 5 DAYS Report Status FINAL 07/20/2022 [facility] Comment on above: Performed By: #### C CRESCENCIO URIARTE, CBC, MG #### [facility] [address] [place] [address] Block Sealer: Rodrick Jones MD CBCon 07-19-2022 Erythrocyte distribution width (RBC) [Ratio] 13.4 % Normal 11.8-14.4 [facility] Comment on above: Performed By: #### C RPDEBBIEP, CBC, MG #### [facility] [address] [place] [address] Block Sealer: Rordick Jones MD Hematocrit (Bld) [Volume fraction] 36.4 % Low 40.7-50.3 [facility] Comment on above: Performed By: #### C RP, RENP, CBC, MG #### [facility] [address] [place] [address] Block Sealer: Rodrick Jones MD Hemoglobin (Bld) [Mass/Vol] 11.4 g/dL Low 13.0-17.0 [facility] Comment on above: Performed By: #### C RP, RENP, CBC, MG #### [facility] [address] [place] [address] Block Sealer: Rodrick Jones MD MCH (RBC) [Entitic mass] 31.1 pg Normal 25.2-33.5 [facility] Comment on above: Performed By: #### C RP, RENP, CBC, MG #### [address] [address] Block Sealer: Rodrick Jones MD MCHC (RBC) [Mass/Vol] 31.3 g/dL Normal 28.4-34.8 [facility] Comment on above: Performed By: #### C RP, RENP, CBC, MG #### [facility] [address] [place] [address] 9[address]39 Block Sealer: Rodrick Jones MD MCV (RBC) [Entitic vol] 99.5 fL Normal 82.6-102.9 [facility] Comment on above: Performed By: #### C RP, RENP, CBC, MG #### [facility] [address] [place] [address] 289[address] Block Sealer: Rodrick Jones MD NRBC Automated 0.0 per 100 WBC Normal 0.0 [facility] Comment on above: Performed By: #### C RP, RENP, CBC, MG #### [facility] [address] [place] [address] Block Sealer: Rodrick Jones MD Platelet mean volume (Bld) [Entitic vol] 10.7 fL Normal 8.1-13.5 [facility] Comment on above: Performed By: #### C RP, RENP, CBC, MG #### [facility] [place] [address] Block Sealer: Rodrick Jones MD Platelets (Bld) [#/Vol] 235 10*3/uL Normal 138-453 [facility] Comment on above: Performed By: #### C RP, RENP, CBC, MG #### [facility] [address] [place] [address] 9[address]99 Block Sealer: Rodrick Jones MD RBC (Bld) [#/Vol] 3.66 10*6/uL Low 4.21-5.77 [facility] Comment on above: Performed By: #### C RP, RENP, CBC, MG #### [facility] [address] [place] [address] Block Sealer: Rodrick Jones MD WBC (Bld) [#/Vol] 11.2 10*3/uL Normal 3.5-11.3 [facility] Comment on above: Performed By: #### C RP, RENP, CBC, MG #### [facility] [address] [place] [address]199 Block Sealer: Rodrick Jones MD Hemoglobin A1Con 07-19-2022 Glucose [Mass/Vol] 180 mg/dL Normal [facility] Comment on above: Result Comment: The ADA and AACC recommend providing the estimated average glucose result to permit better patient understanding of their HBA1c result. Performed By: #### C RP, RENP, CBC, MG #### [facility] [address] [place] [address] 67406 Block Sealer: Rodrick Jones MD HbA1c (Bld) [Mass fraction] 7.9 % High 4.0-6.0 [facility] Comment on above: Performed By: #### C RP, RENP, CBC, MG #### [facility] [address] [place] [address] 9[address]14 Block Sealer: Rodrick Jones MD Magnesiumon 07-19-2022 Magnesium [Mass/Vol] 1.8 mg/dL Normal 1.6-2.6 [facility] Comment on above: Performed By: #### C RP, RENP, CBC, MG #### [facility] [address] [place] [address] 13353 Block Sealer: Rodrick Jones MD Renal Function Panelon 07-19 Albumin [Mass/Vol] 3.4 g/dL Low 3.5-5.2 [facility] Comment on above: Performed By: #### C RP, RENP, CBC, MG #### [facility] [address] [place] [address] 08667 Block Sealer: Rodirck Jones MD Anion gap [Moles/Vol] 18 mmol/L High 9-17 [facility] Comment on above: Performed By: #### C RP, RENP, CBC, MG #### [facility] [address] [place] [address] 54689 Block Sealer: Rodrick Jones MD Calcium [Mass/Vol] 9.4 mg/dL Normal 8.6-10.4 [facility] Comment on above: Performed By: #### C RP, RENP, CBC, MG #### [facility] [address] [place] [address] 31429 Block Sealer: Rodrick Jones MD Chloride [Moles/Vol] 101 mmol/L Normal 98-107 [facility] Comment on above: Performed By: #### C RP, RENP, CBC, MG #### [facility] [address] [place] [address] 47586 Block Sealer: Rodrick Jones MD CO2 [Moles/Vol] 24 mmol/L Normal 20-31 [facility] Comment on above: Performed By: #### C RP, RENP, CBC, MG #### [facility] [address] [place] [address] 71557 Block Sealer: Rodrick Jones MD Creatinine [Mass/Vol] 3.74 mg/dL High 0.70-1.20 [facility] Comment on above: Performed By: #### C RP, RENP, CBC, MG #### [address] [address] Block Sealer: Rodrick Jones MD GFR/1.73 sq M.predicted among non-blacks MDRD (S/P/Bld) [Vol rate/Area] 18 mL/min/{1.73_m2} Low >60 [facility] Comment on above: Result Comment: These [...] #### C RP, RENP, CBC, MG #### [facility] [address] [place] [address] 10120 Block Sealer: Rodrick Jones MD Glucose [Mass/Vol] 197 mg/dL High 70-99 [facility] Comment on above: Performed By: #### C RP, RENP, CBC, MG #### [facility] [address] [place] [address] 41394 Block Sealer: Rodrick Jones MD Phosphorus, Inorg. 4.3 mg/dL Normal 2.5-4.5 [facility] Comment on above: Performed By: #### C RP, RENP, CBC, MG #### [facility] [address] [place] [address] 99044 Block Sealer: Rordick Jones MD Potassium [Moles/Vol] 4.7 mmol/L Normal 3.7-5.3 [facility] Comment on above: Performed By: #### C RP, RENP, CBC, MG #### [facility] [address] [place] [address] Block Sealer: Rodrick Jones MD Sodium [Moles/Vol] 143 mmol/L Normal 135-144 [facility] Comment on above: Performed By: #### C RP, RENP, CBC, MG #### [facility] [address] [place] [address] 00268 Block Sealer: Rodrick Jones MD Urea nitrogen [Mass/Vol] 36 mg/dL High 8- [facility] Comment on above: Performed By: #### C RP, RENP, CBC, MG #### [facility] [address] [place] [address] 98510 Block Sealer: Rodrick Jones MD TSH w/reflex to FT4on 2022 Thyroid Stim. Horm. 1.72 uIU/mL Normal 0.30-5.00 [facility] Comment on above: Performed By: #### C RP RENP, CBC, MG #### [facility] [address] [place] [address] 05460 Block Sealer: Rodrick Jones MD CBCon 07-18-2022 Erythrocyte distribution width (RBC) [Ratio] 13.2 % Normal 11.8-14.4 [facility] Comment on above: Performed By: #### I FX, URI, C4, PE, FKLLC, C3, PTHNCA #### [facility] [address] [place] [address] 60519 Block Sealer: Rodrick Jones MD Hematocrit (Bld) [Volume fraction] 34.3 % Low 40.7-50.3 [facility] Comment on above: Performed By: #### I FX, URI, C4, PE, FKLLC, C3, PTHNCA #### [address] [address] Block Sealer: Rodrick Jones MD Hemoglobin (Bld) [Mass/Vol] 11.4 g/dL Low 13.0-17.0 [facility] Comment on above: Performed By: #### I FX, URI, C4, PE, FKLLC, C3, PTHNCA #### [address] [address] Block Sealer: Rodrick Jones MD MCH (RBC) [Entitic mass] 30.6 pg Normal 25.2-33.5 [facility] Comment on above: Performed By: #### I FX, URI, C4, PE, FKLLC, C3, PTHNCA #### [address] [address] Block Sealer: Rodrick Jones MD MCHC (RBC) [Mass/Vol] 33.2 g/dL Normal 28.4-34.8 [facility] Comment on above: Performed By: #### I FX, URI, C4, PE, FKLLC, C3, PTHNCA #### [address] [address] Block Sealer: Rodrick Jones MD MCV (RBC) [Entitic vol] 92.2 fL Normal 82.6-102.9 [facility] Comment on above: Performed By: #### I FX, URI, C4, PE, FKLLC, C3, PTHNCA #### [address] [address] Block Sealer: Rodrick Jones MD NRBC Automated 0.0 per 100 WBC Normal 0.0 [facility] Comment on above: Performed By: #### I FX, URI, C4, PE, FKLLC, C3, PTHNCA #### [address] [address] Block Sealer: Rodrick Jones MD Platelet mean volume (Bld) [Entitic vol] 10.8 fL Normal 8.1-13.5 [facility] Comment on above: Performed By: #### I FX, URI, C4, PE, FKLLC, C3, PTHNCA #### [address] [address] Block Sealer: Rodrick Jones MD Platelets (Bld) [#/Vol] 220 10*3/uL Normal 138-453 [facility] Comment on above: Performed By: #### I FX, URI, C4, PE, FKLLC, C3, PTHNCA #### [address] [address] Block Sealer: Rodrick Jones MD RBC (Bld) [#/Vol] 3.72 10*6/uL Low 4.21-5.77 [facility] Comment on above: Performed By: #### I FX, URI, C4, PE, FKLLC, C3, PTHNCA #### [address] [address] Block Sealer: Rodrick Jones MD WBC (Bld) [#/Vol] 11.1 10*3/uL Normal 3.5-11.3 [facility] Comment on above: Performed By: #### I FX, URI, C4, PE, FKLLC, C3, PTHNCA #### [address] [address] Block Sealer: Rodrick Jones MD Magnesiumon 07-18-2022 Magnesium [Mass/Vol] 1.6 mg/dL Normal 1.6-2.6 [facility] Comment on above: Performed By: #### I FX, URI, C4, PE, FKLLC, C3, PTHNCA #### [address] [address] Block Sealer: Rodrick Jones MD Renal Function Panelon 07-18 Albumin [Mass/Vol] 3.6 g/dL Normal 3.5-5.2 [facility] Comment on above: Performed By: #### I FX, URI, C4, PE, FKLLC, C3, PTHNCA #### [address] [address] Block Sealer: Rodrick Jones MD Anion gap [Moles/Vol] 11 mmol/L Normal 9-17 [facility] Comment on above: Performed By: #### I FX, URI, C4, PE, FKLLC, C3, PTHNCA #### [address] [address] Block Sealer: Rodrick Jones MD Calcium [Mass/Vol] 9.4 mg/dL Normal 8.6-10.4 [facility] Comment on above: Performed By: #### I FX, URI, C4, PE, FKLLC, C3, PTHNCA #### [address] [address] Block Sealer: Rodrick Jones MD Chloride [Moles/Vol] 98 mmol/L Normal 98-107 [facility] Comment on above: Performed By: #### I FX, URI, C4, PE, FKLLC, C3, PTHNCA #### [address] [address] Block Sealer: Rodrick Jones MD CO2 [Moles/Vol] 28 mmol/L Normal 20-31 [facility] Comment on above: Performed By: #### I FX, URI, C4, PE, FKLLC, C3, PTHNCA #### [address] 8[address] Block Sealer: Rodrick Jones MD Creatinine [Mass/Vol] 3.43 mg/dL High 0.70-1.20 [facility] Comment on above: Performed By: #### I FX, URI, C4, PE, FKLLC, C3, PTHNCA #### [address] [address] Block Sealer: Rodrick Jones MD GFR/1.73 sq M.predicted among non-blacks MDRD (S/P/Bld) [Vol rate/Area] 20 mL/min/{1.73_m2} Low >60 [facility] Comment on above: Result Comment: These [...] URI, C4, PE, FKLLC, C3, PTHNCA #### [place] [address] Block Sealer: Rodrick Jones MD Glucose [Mass/Vol] 205 mg/dL High 70-99 [facility] Comment on above: Performed By: #### I FX, URI, C4, PE, FKLLC, C3, PTHNCA #### [address] [address] Block Sealer: Rodrick Jones MD Phosphorus, Inorg. 3.9 mg/dL Normal 2.5-4.5 [facility] Comment on above: Performed By: #### I FX, URI, C4, PE, FKLLC, C3, PTHNCA #### [address] [address] Block Sealer: Rodrick Jones MD Potassium [Moles/Vol] 4.4 mmol/L Normal 3.7-5.3 [facility] Comment on above: Result Comment: SPEC IMEN SLIGHTLY HEMOLYZED, RESULTS MAY BE ADVERSELY AFFECTED. Performed By: #### I FX, URI, C4, PE, FKLLC, C3, PTHNCA #### [address] [address] Block Sealer: Rodrick Jones MD Sodium [Moles/Vol] 137 mmol/L Normal 135-144 [facility] Comment on above: Performed By: #### I FX, URI, C4, PE, FKLLC, C3, PTHNCA #### [address] [address] Block Sealer: Rodrick Jones MD Urea nitrogen [Mass/Vol] 30 mg/dL High 8-23 [facility] Comment on above: Performed By: #### I FX, URI, C4, PE, FKLLC, C3, PTHNCA #### [address] [address] Block Sealer: Rodrick Jones MD CBCon 07-17-2022 Erythrocyte distribution width (RBC) [Ratio] 13.2 % Normal 11.8-14.4 [facility] Comment on above: Performed By: #### B ECCY, CBC #### [address] [address] Block Sealer: Rodrick Jones MD Hematocrit (Bld) [Volume fraction] 34.2 % Low 40.7-50.3 [facility] Comment on above: Performed By: #### B MP, CBC #### [address] [address] Block Sealer: Rodrick Jones MD Hemoglobin (Bld) [Mass/Vol] 11.0 g/dL Low 13.0-17.0 [facility] Comment on above: Performed By: #### B MP, CBC #### [address] [address] Block Sealer: Rodrick Jones MD MCH (RBC) [Entitic mass] 30.6 pg Normal 25.2-33.5 [facility] Comment on above: Performed By: #### B MP, CBC #### [address] [address] Block Sealer: Rodrick Jones MD MCHC (RBC) [Mass/Vol] 32.2 g/dL Normal 28.4-34.8 [facility] Comment on above: Performed By: #### B MP, CBC #### [address] [address] Block Sealer: Rodrick Jones MD MCV (RBC) [Entitic vol] 95.0 fL Normal 82.6-102.9 [facility] Comment on above: Performed By: #### B MP, CBC #### [address] [address] Block Sealer: Rodrick Jones MD NRBC Automated 0.0 per 100 WBC Normal 0.0 [facility] Comment on above: Performed By: #### B MP, CBC #### [address] [address] Block Sealer: Rodrick Jones MD Platelet mean volume (Bld) [Entitic vol] 10.9 fL Normal 8.1-13.5 [facility] Comment on above: Performed By: #### B MP, CBC #### [address] [address] Block Sealer: Rodrick Jones MD Platelets (Bld) [#/Vol] 211 10*3/uL Normal 138-453 [facility] Comment on above: Performed By: #### B MP, CBC #### [address] [address] Block Sealer: Rodrick Jones MD RBC (Bld) [#/Vol] 3.60 10*6/uL Low 4.21-5.77 [facility] Comment on above: Performed By: #### B MP, CBC #### [facility] [address] [place] [address] 12799 Block Sealer: Rodrick Jones MD WBC (Bld) [#/Vol] 9.7 10*3/uL Normal 3.5-11.3 [facility] Comment on above: Performed By: #### B MP, CBC #### [facility] [address] [place] [address] Block Sealer: Rodrick Jones MD Magnesiumon 07-17-2022 Magnesium [Mass/Vol] 1.6 mg/dL Normal 1.6-2.6 [facility] Comment on above: Performed By: #### B MP, CBC #### [facility] [address] [place] [address]507 Block Sealer: Rodrick Jones MD Renal Function Panelon 07-17 Albumin [Mass/Vol] 3.7 g/dL Normal 3.5-5.2 [facility] Comment on above: Performed By: #### B MP, CBC #### [facility] [address] [place] [address] Block Sealer: Rodrick Jones MD Anion gap [Moles/Vol] 13 mmol/L Normal 9-17 [facility] Comment on above: Performed By: #### B MP, CBC #### [facility] [address] [place] [address] 15250 Block Sealer: Rodrick Jones MD Calcium [Mass/Vol] 9.1 mg/dL Normal 8.6-10.4 [facility] Comment on above: Performed By: #### B MP, CBC #### [facility] [address] [place] [address] 27518 Block Sealer: Rodrick Jones MD Chloride [Moles/Vol] 96 mmol/L Low 98-107 [facility] Comment on above: Performed By: #### B MP, CBC #### [facility] [address] [place] [address] 80881 Block Sealer: Rodrick Jones MD CO2 [Moles/Vol] 28 mmol/L Normal 20-31 [facility] Comment on above: Performed By: #### B MP, CBC #### [facility] [address] [place] [address] 25968 Block Sealer: Rodrick Jones MD Creatinine [Mass/Vol] 2.91 mg/dL High 0.70-1.20 [facility] Comment on above: Performed By: #### B MP, CBC #### [facility] [address] [place] [address]144 Block Sealer: Rodrick Jones MD GFR/1.73 sq M.predicted among non-blacks MDRD (S/P/Bld) [Vol rate/Area] 24 mL/min/{1.73_m2} Low >60 [facility] Comment on above: Result Comment: These [...] Performed By: #### B MP, CBC #### [facility] [address] [place] [address]19 Block Sealer: Rodrick Jones MD Glucose [Mass/Vol] 240 mg/dL High 70-99 [facility] Comment on above: Performed By: #### B MP, CBC #### [facility] [address] [place] [address]360 Block Sealer: Rodrick Jones MD Phosphorus, Inorg. 3.4 mg/dL Normal 2.5-4.5 [facility] Comment on above: Performed By: #### B MP, CBC #### [facility] [address] [place] [address] 51897 Block Sealer: Rodrick Jones MD Potassium [Moles/Vol] 3.9 mmol/L Normal 3.7-5.3 [facility] Comment on above: Performed By: #### B MP, CBC #### [facility] [address] [place] [address] 7[address] Block Sealer: Rodrick Jones MD Sodium [Moles/Vol] 137 mmol/L Normal 135-144 [facility] Comment on above: Performed By: #### B MP, CBC #### [facility] [address] [place] [address] Block Sealer: Rodrick Jones MD Urea nitrogen [Mass/Vol] 25 mg/dL High 8-23 [facility] Comment on above: Performed By: #### B MP, CBC #### [facility] [address] [place] [address]109 Block Sealer: Rodrick Jones MD CBCon 07-16-2022 Erythrocyte distribution width (RBC) [Ratio] 13.4 % Normal 11.8-14.4 [facility] Comment on above: Performed By: #### B MP, CBC #### [facility] [address] [place] [address] 48043 Block Sealer: Rodrick Jones MD Hematocrit (Bld) [Volume fraction] 36.2 % Low 40.7-50.3 [facility] Comment on above: Performed By: #### B MP, CBC #### [facility] [address] [place] [address] 15740 Block Sealer: Rodrick Jones MD Hemoglobin (Bld) [Mass/Vol] 11.3 g/dL Low 13.0-17.0 [facility] Comment on above: Performed By: #### B MP, CBC #### [facility] [address] [place] [address] [phone] Block Sealer: Rodrick Jones MD MCH (RBC) [Entitic mass] 31.1 pg Normal 25.2-33.5 [facility] Comment on above: Performed By: #### B MP, CBC #### [address] [address] Block Sealer: Rodrick Jones MD MCHC (RBC) [Mass/Vol] 31.2 g/dL Normal 28.4-34.8 [facility] Comment on above: Performed By: #### B MP, CBC #### [address] [address] Block Sealer: Rodrick Jones MD MCV (RBC) [Entitic vol] 99.7 fL Normal 82.6-102.9 [facility] Comment on above: Performed By: #### B MP, CBC #### [address] [address] Block Sealer: Rodrick Jones MD NRBC Automated 0.0 per 100 WBC Normal 0.0 [facility] Comment on above: Performed By: #### B MP, CBC #### [address] [address] Block Sealer: Rodrick Jones MD Platelet mean volume (Bld) [Entitic vol] 11.1 fL Normal 8.1-13.5 [facility] Comment on above: Performed By: #### B MP, CBC #### [address] [address] Block Sealer: Rodrick Jones MD Platelets (Bld) [#/Vol] 202 10*3/uL Normal 138-453 [facility] Comment on above: Performed By: #### B MP, CBC #### [address] [address] Block Sealer: Rodrick Jones MD RBC (Bld) [#/Vol] 3.63 10*6/uL Low 4.21-5.77 [facility] Comment on above: Performed By: #### B MP, CBC #### [facility] [address] [place] [address] Block Sealer: Rodrick Jones MD WBC (Bld) [#/Vol] 9.0 10*3/uL Normal 3.5-11.3 [facility] Comment on above: Performed By: #### B MP, CBC #### [facility] [address] [place] [address] Block Sealer: Rodrick Jones MD Cult,Urineon 07-16-2022 Cult,Urine Specimen Description .URINE Culture Nida albicans/dubliniensi s 50 to 100,000 CFU/ML Report Status FINAL 07/16/2022 Normal [facility] Comment on above: Performed By: #### B MP, CBC #### [facility] [address] [place] [address] Block Sealer: Rodrick Jones MD Magnesiumon 07-16-2022 Magnesium [Mass/Vol] 2.0 mg/dL Normal 1.6-2.6 [facility] Comment on above: Performed By: #### B MP, CBC #### [facility] [address] [place] [address]702 Block Sealer: Rodrick Jones MD Renal Function Panelon 07-16 Albumin [Mass/Vol] 3.1 g/dL Low 3.5-5.2 [facility] Comment on above: Performed By: #### B MP, CBC #### [facility] [address] [place] [address] Block Sealer: Rodrick Jones MD Anion gap [Moles/Vol] 15 mmol/L Normal 9-17 [facility] Comment on above: Performed By: #### B MP, CBC #### [facility] [address] [place] [address] 24902 Block Sealer: Rodrick Jones MD Calcium [Mass/Vol] 9.2 mg/dL Normal 8.6-10.4 [facility] Comment on above: Performed By: #### B MP, CBC #### [address] [address] Block Sealer: Rodrick Jones MD Chloride [Moles/Vol] 102 mmol/L Normal 98-107 [facility] Comment on above: Performed By: #### B MP, CBC #### [facility] [address] [place] [address] Block Sealer: Rodrick Jones MD CO2 [Moles/Vol] 19 mmol/L Low 20-31 [facility] Comment on above: Performed By: #### B CECY, CBC #### [address] [address] Block Sealer: Rodrick Jones MD Creatinine [Mass/Vol] 3.48 mg/dL High 0.70-1.20 [facility] Comment on above: Performed By: #### B CECY, CBC #### [address] [address] Block Sealer: Rodrick Jones MD GFR/1.73 sq M.predicted among non-blacks MDRD (S/P/Bld) [Vol rate/Area] 19 mL/min/{1.73_m2} Low >60 [facility] Comment on above: Result Comment: These [...] Performed By: #### B MP, CBC #### [address] [address] Block Sealer: Rodrick Jones MD Glucose [Mass/Vol] 207 mg/dL High 70-99 [facility] Comment on above: Performed By: #### B MP, CBC #### [facility] [address] [place] [address] Block Sealer: Rodrick Jones MD Phosphorus, Inorg. 5.4 mg/dL High 2.5-4.5 [facility] Comment on above: Performed By: #### B MP, CBC #### [facility] [address] [place] [address]998 Block Sealer: Rodrick Jones MD Potassium [Moles/Vol] 4.8 mmol/L Normal 3.7-5.3 [facility] Comment on above: Result Comment: SPEC IMEN MODERATELY HEMOLYZED, RESULTS MAY BE ADVERSELY AFFECTED ACCEPTED PER RN STEPH Performed By: #### B MP, CBC #### [facility] [address] [place] [address] Block Sealer: Rodrick Jones MD Sodium [Moles/Vol] 136 mmol/L Normal 135-144 [facility] Comment on above: Performed By: #### B MP, CBC #### [facility] [address] [place] [address]7 Block Sealer: Rodrick Jones MD Urea nitrogen [Mass/Vol] 35 mg/dL High 8-23 [facility] Comment on above: Performed By: #### B MP, CBC #### [facility] [address] [place] [address] Block Sealer: Rodrick Jones MD Brain Natri. Peptideon 07-15 Natriuretic peptide B (Bld) [Mass/Vol] 368 pg/mL High <300 [facility] Comment on above: Result Comment: An age-independent cutoff point of 300 pg/ml has a 98% negative predictive value excluding acute heart failure. Performed By: #### B MP, CBC #### [facility] [address] [place] [address] Block Sealer: Rodrick Jones MD CT ABDOMEN PELVIS WO [...] Gillian Watters MD 07/15/22 Final result Normal [facility] POINT OF CARE GLUCOSEon 04-0 Glucose [Mass/Vol] 158 mg/dL Critically high 74-106 [facility] Comment on above: Performed By: #### C MP, [facility] #### [facility] [address] [place], [place] [address] Dr. Kalie Rodas Renal Function Panelon 07-15 Albumin [Mass/Vol] 3.4 g/dL Low 3.5-5.2 [facility] Comment on above: Performed By: #### B MP, CBC #### [facility] [address] [place] [address] Block Sealer: Rodrick Jones MD Anion gap [Moles/Vol] 20 mmol/L High 9-17 [facility] Comment on above: Performed By: #### B MP, CBC #### [facility] [address] [place] [address] Block Sealer: Rodrick Jones MD Calcium [Mass/Vol] 9.2 mg/dL Normal 8.6-10.4 [facility] Comment on above: Performed By: #### B MP, CBC #### [facility] [address] [place] [address] Block Sealer: Rodrick Jones MD Chloride [Moles/Vol] 94 mmol/L Low 98-107 [facility] Comment on above: Performed By: #### B MP, CBC #### [facility] [address] [place] [address] Block Sealer: Rodrick Jones MD CO2 [Moles/Vol] 18 mmol/L Low 20-31 [facility] Comment on above: Performed By: #### B MP, CBC #### [facility] [address] [place] [address] Block Sealer: Rodrick Jones MD Creatinine [Mass/Vol] 2.93 mg/dL High 0.70-1.20 [facility] Comment on above: Performed By: #### B MP, CBC #### [facility] [address] [place] [address] Block Sealer: Rodrick Jones MD GFR/1.73 sq M.predicted among non-blacks MDRD (S/P/Bld) [Vol rate/Area] 24 mL/min/{1.73_m2} Low >60 [facility] Comment on above: Result Comment: These [...] Performed By: #### B MP, CBC #### [facility] [address] [place] [address] Block Sealer: Rodrick Jones MD Glucose [Mass/Vol] 159 mg/dL High 70-99 [facility] Comment on above: Performed By: #### B MP, CBC #### [facility] [address] [place] [address] Block Sealer: Rodrick Jones MD Phosphorus, Inorg. 4.2 mg/dL Normal 2.5-4.5 [facility] Comment on above: Performed By: #### B MP, CBC #### [facility] [address] [place] [address] Block Sealer: Rodrick Jones MD Potassium [Moles/Vol] 3.5 mmol/L Low 3.7-5.3 [facility] Comment on above: Performed By: #### B MP, CBC #### [facility] [address] [place] [address] Block Sealer: Rodrick Jones MD Sodium [Moles/Vol] 132 mmol/L Low 135-144 [facility] Comment on above: Performed By: #### B MP, CBC #### [facility] [address] [place] [address] Block Sealer: Rodrick Jones MD Urea nitrogen [Mass/Vol] 30 mg/dL High 8-23 [facility] Comment on above: Performed By: #### B MP, CBC #### [address] [address] Block Sealer: Rodrick Jones MD UA w/Reflex Cultureon 2022 Bilirubin, SemiQt,Ur Negative Normal NEG [facility] Comment on above: Performed By: #### B MP, CBC #### [address] [address] Block Sealer: Rodrick Jones MD Blood, Urine LARGE Abnormal NEG [facility] Comment on above: Performed By: #### B MP, CBC #### [address] [address] Block Sealer: Rodrick Jones MD Clarity (U) Cloudy Abnormal CLEAR [facility] Comment on above: Performed By: #### B MP, CBC #### [address] [address] Block Sealer: Rodrick Jones MD Color (U) Yellow Normal YEL [facility] Comment on above: Performed By: #### B MP, CBC #### [address] [address] Block Sealer: Rodrick Jones MD Glucose Ql (U) Negative Normal NEG [facility] Comment on above: Performed By: #### B MP, CBC #### [address] [address] Block Sealer: Rodrick Jones MD Ketones Ql (U) Negative Normal NEG [facility] Comment on above: Performed By: #### B MP, CBC #### [address] [address] Block Sealer: Rodrick Jones MD Leukocyte esterase Test strip Ql (U) SMALL Abnormal NEG [facility] Comment on above: Performed By: #### B MP, CBC #### [facility] [address] [place] [address] Block Sealer: Rodrick Jones MD Nitrite,Ur Negative Normal NEG [facility] Comment on above: Performed By: #### B MP, CBC #### [facility] [address] [place] [address] Block Sealer: Rodrick Jones MD PH,Ur 5.0 Normal 5.0-8.0 [facility] Comment on above: Performed By: #### B MP, CBC #### [address] [address] Block Sealer: Rodrick Jones MD Protein Ql (U) 2+ Abnormal NEG [facility] Comment on above: Performed By: #### B MP, CBC #### [address] [address] Block Sealer: Rodrick Jonse MD Spec. [place],Ur 1.014 Normal 1.005-1.030 [facility] Comment on above: Performed By: #### B MP, CBC #### [address] [address] Block Sealer: Rodrick Jones MD Urobilinogen,Ur Normal Normal NORM [facility] Comment on above: Performed By: #### B MP, CBC #### [address] [address] Block Sealer: Rodrick Jones MD Urinalysis,Microon 3 Casts 5 TO 10 Normal 0-2 [facility] Comment on above: Result Comment: HYAL INE Performed By: #### B MP, CBC #### [address] [address] Block Sealer: Rodrick Jones MD Epithelial cells LM Ql (Urine sed) 2 TO 5 Normal 0-5 [facility] Comment on above: Performed By: #### B MP, CBC #### [facility] [address] [place] [address] Block Sealer: Rodrick Jones MD Urine RBC's 10 TO 20 Normal 0-2 [facility] Comment on above: Performed By: #### B MP, CBC #### [facility] [address] [place] [address] Block Sealer: Rodrick Jones MD Urine WBC's 10 TO 20 Normal 0-5 [facility] Comment on above: Performed By: #### B MP, CBC #### [facility] [address] [place] [address] Block Sealer: Rodrick Jones MD Yeast MODERATE Abnormal NONE [facility] Comment on above: Performed By: #### B MP, CBC #### [facility] [address] [place] [address] Block Sealer: Rodrick Jones MD ACETONE SERUMon 07-14-2022 ACETONE Negative Normal NEGATIVE [facility] Comment on above: Performed By: #### C VDTBH #### [facility] [address] [place] [address] Dr. Kalie Rodas CARDIAC STEVEN 3-6on 3 CK [Catalytic activity/Vol] 91 U/L Normal 39-308 [facility] Comment on above: Performed By: #### M ALBCRL #### [facility] [address] [place] [address] Dr. Kalie Rodas CK.MB [Mass/Vol] 1.78 ng/mL Normal <=3.60 [facility] Comment on above: Performed By: #### M ALBCRL #### [facility] [address] [place] [address] Dr. Kalie Rodas HSTROP 7.2 pg/mL Normal 4.0-76.1 [facility] Comment on above: Result Comment: CUT- OFF POINTS HAVE BEEN ESTABLISHED BASED ON THE FOURTH UNIVERSAL DEFINITIONS OF MYOCARDIAL INFARCTION. THE UPPER REFERENCE LIMIT (URL) OF TROPONIN, DEFINED THE 99TH PERCENTILE OF cTnI DISTRIBUTION IN A REFERENCE POPULATION, HAS BEEN CONFIRMED THE DECISION THRESHOLD FOR PA DIAGNOSIS. Performed By: #### M ALBCRL #### [facility] [address] [place] [address] Dr. Kalie Rodas CBC AUTO DIFFon 07-14-2022 BASO # 0.1 103/ul Normal 0.0-0.1 [facility] Comment on above: Performed By: #### C BC #### [facility] [address] [place] [address] Dr. Kalie Rodas Basophils/100 WBC (Bld) 0.7 % Normal 0.2-2.0 [facility] Comment on above: Performed By: #### C BC #### [facility] [address] [place] [address] Dr. Kalie Rodas EO # 0.4 103/ul Normal 0.0-0.7 [facility] Comment on above: Performed By: #### C BC #### [facility] [address] [place] [address] Dr. Kalie Rodas Eosinophils/100 WBC (Bld) 3.7 % Normal 0.9-7.0 [facility] Comment on above: Performed By: #### C BC #### [facility] [address] [place] [address] Dr. Kalie Rodas Erythrocyte distribution width (RBC) [Ratio] 13.2 % Normal 11.0-15.0 [facility] Comment on above: Performed By: #### C BC #### [facility] [address] [place] [address] Dr. Kalie Rodas Hematocrit (Bld) [Volume fraction] 34.5 % Critically low 42.0-54.0 [facility] Comment on above: Performed By: #### C BC #### [facility] [address] [place] [address] Dr. Kalie Rodas Hemoglobin (Bld) [Mass/Vol] 11.5 g/dL Critically low 14.0-18.0 [facility] Comment on above: Performed By: #### C BC #### [facility] [address] [place] [address] Dr. Kalie Rodas IG # 0.09 10e3/ul Critically high 0.00-0.03 [facility] Comment on above: Performed By: #### C BC #### [facility] [address] [place] [address] Dr. Kalie Rodas IG % 1.0 % Critically high 0.0-0.5 [facility] Comment on above: Performed By: #### C BC #### [facility] [address] [place] [address] Dr. Kalie Rodas LYMPH # 2.8 103/ul Normal 1.2-3.8 [facility] Comment on above: Performed By: #### C BC #### [facility] [address] [place] [address] Dr. Kalie Rodas Lymphocytes/100 WBC (Bld) 29.8 % Normal 20.5-60.0 [facility] Comment on above: Performed By: #### C BC #### [facility] [address] [place] [address] Dr. Kalie Rodas MANUAL DIFF REQ NO Normal [facility] Comment on above: Performed By: #### C BC #### [facility] [address] [place] [address] Dr. Kalie Rodas MCH (RBC) [Entitic mass] 30.3 pg Normal 25.9-34.0 [facility] Comment on above: Performed By: #### C BC #### [facility] [address] [place] [address] Dr. Kalie Rodas MCHC (RBC) [Mass/Vol] 33.3 g/dL Normal 29.9-35.2 [facility] Comment on above: Performed By: #### C BC #### [facility] [address] [place] [address] Dr. Kalie Rodas MCV (RBC) [Entitic vol] 91.0 fL Normal 80.0-94.0 [facility] Comment on above: Performed By: #### C BC #### [facility] [address] [place] [address] Dr. Kalie Rodas MONO # 0.9 103/ul Critically high 0.3-0.8 [facility] Comment on above: Performed By: #### C BC #### [facility] [address] [place] [address] Dr. Kalie Rodas Monocytes/100 WBC (Bld) 9.1 % Normal 1.7-12.0 [facility] Comment on above: Performed By: #### C BC #### [facility] [address] [place] [address] Dr. Kalie Rodas NEUT # 5.2 103/ul Normal 1.4-6.5 [facility] Comment on above: Performed By: #### C BC #### [facility] [address] [place] [address] Dr. Kalie Rodas Neutrophils/100 WBC (Bld) 55.7 % Normal 43.0-75.0 [facility] Comment on above: Performed By: #### C BC #### [facility] [address] [place] [address] Dr. Kalie Rodas Platelet mean volume (Bld) [Entitic vol] 10.5 fL Normal 9.5-13.5 [facility] Comment on above: Performed By: #### C BC #### [facility] [address] [place] [address] Dr. Kalie Rodas PLT 221 103/ul Normal 150-450 [facility] Comment on above: Performed By: #### C BC #### [facility] [address] [place] [address] Dr. Kalie Rodas RBC 3.79 106/ul Critically low 4.70-6.10 [facility] Comment on above: Performed By: #### C BC #### [facility] [address] [place] [address] Dr. Kalie Rodas WBC 9.4 103/ul Normal 4.0-11.0 [facility] Comment on above: Performed By: #### C BC #### [facility] [address] [place] [address] HEAD WO CONon [...] acute intracranial abnormality. Electronically authenticated by: [facility] Date: 2022-07-14 18:48 Normal [facility]on SARS-CoV-2 (COVID-19) RNA BENTLEY+probe Ql (Unsp spec) Not detected Normal NOT DETECTED [facility] Comment on above: Result Comment: When [...] for this test is supported by the [place] of Health and Human Service's declaration that [...] used). Performed By: #### C VDTB #### [facility] [address] [place] [address] Dr. Kalie Rodas ER URINE PROFILEon 3 Bilirubin Ql (U) Negative Normal NEGATIVE [facility] Comment on above: Performed By: #### C BC #### [facility] [address] [place] [address] Dr. Kalie Rodas Clarity (U) CLOUDY Abnormal CLEAR [facility] Comment on above: Performed By: #### C BC #### [facility] [address] [place] [address] Dr. Kalie Rodas Color (U) LT. YELLOW Normal YELLOW [facility] Comment on above: Performed By: #### C BC #### [facility] [address] [place] [address] Dr. Kalie COBB A micrscopic examination will be performed if indicated. Normal [facility] Comment on above: Performed By: #### C BC #### [facility] [address] [place] [address] Dr. Kalie Rodas Glucose Ql (U) Negative Normal NEGATIVE [facility] Comment on above: Performed By: #### C BC #### [facility] [address] [place] [address] Dr. Kalie Rodas Hemoglobin Ql (U) LARGE Abnormal NEGATIVE [facility] Comment on above: Performed By: #### C BC #### [facility] [address] [place] [address] Dr. Kalie Rodas Ketones Ql (U) Negative Normal NEGATIVE [facility] Comment on above: Performed By: #### C BC #### [facility] [address] [place] [address] Dr. Kalei Rodas LEUKOCYTES MODERATE Abnormal NEGATIVE [facility] Comment on above: Performed By: #### C BC #### [facility] [address] [place] [address] Dr. Kalie Rodas Nitrite Ql (U) Negative Normal NEGATIVE [facility] Comment on above: Performed By: #### C BC #### [facility] [address] [place] [address] Dr. Kalie Rodas pH (U) 5.5 [pH] Normal 5-9 [facility] Comment on above: Performed By: #### C BC #### [facility] [address] [place] [address] Dr. Kalie Rodas Protein (U) [Mass/Vol] 100 mg/dL Abnormal NEGAT HARISH/ TRACE [facility] Comment on above: Performed By: #### C BC #### [facility] [address] [place] [address] Dr. Kalie Rodas SPEC GRAVITY 1.025 Normal 1.005-<=1.025 [facility] Comment on above: Performed By: #### C BC #### [facility] [address] [place] [address] Dr. Kalie Rodas UR MICRO IND INDICATED Normal [facility] Comment on above: Performed By: #### C BC #### [facility] [address] [place] [address] Dr. Kalie Rodas Urobilinogen Qn (U) 0.2 {Naresh'U}/dL Normal 0.2 - 1. 0 [facility] Comment on above: Performed By: #### C BC #### [facility] [address] [place] [address] Dr. Kalie Rodas LACTATE/LACTIC ACIDon 2022 Lactate [Moles/Vol] 1.5 mmol/L Normal 0.4-2.0 [facility] Comment on above: Performed By: #### L ACT #### [facility] [address] [place] [address] Dr. Kalie Rodas Lactate [Moles/Vol] 2.2 mmol/L Critically high 0.4-2.0 [facility] Comment on above: Performed By: #### C MP, TSH #### [facility] [address] [place] [address] Dr. Kalie Rodas POINT OF CARE GLUCOSEon Glucose [Mass/Vol] 189 mg/dL Critically high 74-106 [facility] Comment on above: Performed By: #### M ALBCRL #### [facility] [address] [place] [address] Dr. Kalie Rodas PROF 14(COMP METB)on 023 Albumin [Mass/Vol] 3.2 g/dL Critically low 3.4-5.0 [facility] Comment on above: Performed By: #### C BC #### [facility] [address] [address] [address] Kalie Rodas Albumin/Globulin [Mass ratio] 0.6 {ratio} Normal [facility] Comment on above: Performed By: #### C BC #### [facility] [address] [place] [address] Dr. Kalie Rodas ALP [Catalytic activity/Vol] 124 U/L Critically high 46-116 [facility] Comment on above: Performed By: #### C BC #### [facility] [address] [address] [address] Kalie Rodas ALT [Catalytic activity/Vol] 31 U/L Normal 16-63 [facility] Comment on above: Performed By: #### C BC #### [facility] [address] [place] [address] Dr. Kalie Rodas Anion gap [Moles/Vol] 14.3 mmol/L Normal [facility] Comment on above: Performed By: #### C BC #### [facility] [address] [place] [address] Dr. Kalie Rodas AST [Catalytic activity/Vol] 30 U/L Normal 15-37 [facility] Comment on above: Performed By: #### C BC #### [facility] [address] [place] [address] Dr. Kalie Rodas Bilirubin [Mass/Vol] 0.6 mg/dL Normal 0.2-1.0 [facility] Comment on above: Performed By: #### C BC #### [facility] [address] [place] [address] Dr. Kalie Rodas Calcium [Mass/Vol] 8.9 mg/dL Normal 8.5-10.1 [facility] Comment on above: Performed By: #### C BC #### [facility] [address] [place] [address] Dr. Kalie Rodas Chloride [Moles/Vol] 98 mmol/L Normal 98-107 [facility] Comment on above: Performed By: #### C BC #### [facility] [address] [address] [address] Kalie Rodas CO2 [Moles/Vol] 25.2 mmol/L Normal 21.0-32.0 [facility] Comment on above: Performed By: #### C BC #### [facility] [address] [address] [address] Kalie Rodas Creatinine [Mass/Vol] 2.52 mg/dL Critically high 0.70-1.30 [facility] Comment on above: Performed By: #### C BC #### [facility] [address] [address] [address] Kalie Rodas EGFR-AF SAUDI ARABIAN 32 mL/min/1.73m2 Critically low >=60 [facility] Comment on above: Performed By: #### C BC #### [facility] [address] [place] [address] Dr. Kalie Rodas EGFR-NON AF SAUDI ARABIAN 26 mL/min/1.73m2 Critically low >=60 [facility] Comment on above: Performed By: #### C BC #### [facility] [address] [address] [address] Kalie Rodas Globulin (S) [Mass/Vol] 5.1 g/dL Normal [facility] Comment on above: Performed By: #### C BC #### [facility] [address] [address] [address] Kalie Rodas Glucose [Mass/Vol] 167 mg/dL Critically high 74-106 [facility] Comment on above: Performed By: #### C BC #### [facility] [address] [address] [address] Kalie Rodas Potassium [Moles/Vol] 3.5 mmol/L Normal 3.5-5.1 [facility] Comment on above: Performed By: #### C BC #### [facility] [address] [place] [address] Dr. Kalie Rodas Protein [Mass/Vol] 8.3 g/dL Critically high 6.4-8.2 [facility] Comment on above: Performed By: #### C BC #### [facility] [address] [place] [address] Dr. Kalie Rodas Sodium [Moles/Vol] 134 mmol/L Critically low 136-145 [facility] Comment on above: Performed By: #### C BC #### [facility] [address] [place] [address] Dr. Kalie Rodas Urea nitrogen [Mass/Vol] 28.0 mg/dL Critically high 7.0-18.0 [facility] Comment on above: Performed By: #### C BC #### [facility] [address] [place] [address] Dr. Kalie Rodas Urea nitrogen/Creatinine [Mass ratio] 11.1 mg/mg Normal [facility] Comment on above: Performed By: #### C BC #### [facility] [address] [place] [address] Dr. Kalie Rodas PROTIMEon 07-14-2022 INR Coag (PPP) [Relative time] 1.03 {INR} Normal [facility] Comment on above: Performed By: #### M ALBCRL #### [facility] [address] [place] [address] Dr. Kalie Rodas INR GUIDELINES SEE BELOW Normal [facility] Comment on above: Result Comment: DENNIS RED INR: 2.0 - 3.0 CONDITIONS NOT LISTED BELOW 2.5 - 3.5 FOR PROSTHETIC HEART VALVE REPLACEMENT 2.5 - 3.5 RECURRENT THROMBOSIS Performed By: #### M ALBCRL #### [facility] [address] [place] [address] Dr. Kalie Rodas PT Coag (PPP) [Time] 10.9 s Normal 9.0-11.6 [facility] Comment on above: Performed By: #### M ALBCRL #### [facility] [address] [place] [address] Dr. Kalie Rodas PTTon 07-14-2022 aPTT Coag (Bld) [Time] 43.5 s Critically high 22.3-36. 2 [facility] Comment on above: Performed By: #### M ALBCRL #### [facility] [address] [place] [address] Dr. Kalie Rodas TROPONIN, HIGH SENSITIVITYon 07-14-2022 HSTROP 6.7 pg/mL Normal 4.0-76.1 [facility] Comment on above: Result Comment: CUT- OFF POINTS HAVE BEEN ESTABLISHED BASED ON THE FOURTH UNIVERSAL DEFINITIONS OF MYOCARDIAL INFARCTION. THE UPPER REFERENCE LIMIT (URL) OF TROPONIN, DEFINED THE 99TH PERCENTILE OF cTnI DISTRIBUTION IN A REFERENCE POPULATION, HAS BEEN CONFIRMED THE DECISION THRESHOLD FOR PA DIAGNOSIS. Performed By: #### C BC #### [facility] [address] [place] [address] Dr. Kalie Rodas TSHon 07-14-2022 TSH 1.760 uIU/mL Normal 0.358-3.740 [facility] Comment on above: Performed By: #### C MP, HSTROPN, TSH #### [facility] [address] [place] [address] Dr. Kalie Rodas URINE MICROSCOPIC ONLYon BACTERIA TRACE Abnormal NONE SEEN [facility] Comment on above: Performed By: #### C BC #### [facility] [address] [place] [address] Dr. Kalie Rodas Bacteria identified Cx Nom (U) INDICATED Normal [facility] Comment on above: Performed By: #### C BC #### [facility] [address] [place] [address] Dr. Kalie Rodas CAST NONE SEEN Normal NONE SEEN [facility] Comment on above: Performed By: #### C BC #### [facility] [address] [place] [address] Dr. Kalie Rodas Crystals LM Nom (Urine sed) NONE SEEN Normal NONE SEEN [facility] Comment on above: Performed By: #### C BC #### [facility] [address] [place] [address] Dr. Kalie Rodas Epithelial cells LM Ql (Urine sed) MANY Abnormal NONE SEEN /RARE [facility] Comment on above: Performed By: #### C BC #### [facility] [address] [place] [address] Dr. Kalie Rodas MUCOUS NONE SEEN Normal NONE SEEN [facility] Comment on above: Performed By: #### C BC #### [facility] [address] [place], [place] [address] Dr. Kalie Rodas RBC 0-2 Normal 0-2 [facility] Comment on above: Performed By: #### C BC #### [facility] [address] [address] [address] Kalie Rodas WBC 10-20 Abnormal NONE SEEN [facility] Comment on above: Performed By: #### C BC #### [facility] [address] [address] [address] Kalie Rodas XR CHEST 1 Von [...] acute cardiopulmonary abnormality. Electronically authenticated by: MIRELA HUFMFAN Date: 2022-07-14 19:07 Normal [facility] Basic Metab w/rfx MGon 07-08 Anion gap [Moles/Vol] 13 mmol/L Normal 9-17 [facility] Comment on above: Performed By: #### B CECY, CBC #### [facility] [address] [place] [address] Block Sealer: You Bro DO Calcium [Mass/Vol] 9.3 mg/dL Normal 8.6-10.4 [facility] Comment on above: Performed By: #### B MP, CBC #### [facility] [address] [place] [address] Block Sealer: You Bro DO Chloride [Moles/Vol] 100 mmol/L Normal 98-107 [facility] Comment on above: Performed By: #### B MP, CBC #### [facility] [address] [place] [address] Block Sealer: You Bro DO CO2 [Moles/Vol] 23 mmol/L Normal 20-31 [facility] Comment on above: Performed By: #### B MP, CBC #### [facility] [address] [facility] [place] [address] Block Sealer: You Bro DO Creatinine [Mass/Vol] 3.50 mg/dL High 0.70-1.20 [facility] Comment on above: Performed By: #### B MP, CBC #### [facility] [address] [facility] [place] [address] Block Sealer: You Bro DO GFR/1.73 sq M.predicted among non-blacks MDRD (S/P/Bld) [Vol rate/Area] 19 mL/min/{1.73_m2} Low >60 [facility] Comment on above: Result Comment: [...] Performed By: #### B CECY, CBC #### [facility] [address] [place] [address] Block Sealer: You Bro DO Glucose [Mass/Vol] 176 mg/dL High 70-99 [facility] Comment on above: Performed By: #### B CECY, CBC #### [facility] [address] [place] [address] Block Sealer: You Bro DO Potassium [Moles/Vol] 4.7 mmol/L Normal 3.7-5.3 [facility] Comment on above: Performed By: #### B MP, CBC #### [facility] [address] [facility] [place], [place] [id number] Block Sealer: You Bro DO Sodium [Moles/Vol] 136 mmol/L Normal 135-144 [facility] Comment on above: Performed By: #### B MP, CBC #### [facility] [address] [place] [address] Block Sealer: You Bro DO Urea nitrogen [Mass/Vol] 56 mg/dL High 8-23 [facility] Comment on above: Performed By: #### B MP, CBC #### [facility] [address] [place] [address] Block Sealer: You Bro DO Basic Metabolic Panel w/ Ref artis to MGon 07-08-2022 Anion gap [Moles/Vol] 13 mmol/L 9 - 17 mmol/L [facility] Calcium [Mass/Vol] 9.3 mg/dL 8.6 - 10. 4 mg/dL [facility] Chloride [Moles/Vol] 100 mmol/L 98 - 10 7 mmol/L [facility] CO2 [Moles/Vol] 23 mmol/L 20 - 31 mmol/L [facility] Creatinine [Mass/Vol] 3.5 mg/dL High 0.70 - 1.20 mg/dL [facility] GFR/1.73 sq M.predicted MDRD (S/P/Bld) [Vol rate/Area] 19 mL/min/{1.73_m2} Low - PINF [facility] Comment on above: These results are not [...] 176 mg/dL High 70 - 99 mg/dL [facility] Interpretation and review of laboratory results Abnormal [facility] Potassium [Moles/Vol] 4.7 mmol/L 3.7 - 5.3 mmol/L [facility] Sodium [Moles/Vol] 136 mmol/L 135 - 144 mmol/L [facility] Urea nitrogen [Mass/Vol] 56 mg/dL High 8 - 23 mg/dL [facility] CBC auto differentialon 06-11 Absolute Eos # 0.30 [facility] Absolute Lymph # 2.40 [facility] SECO URS [facility] Absolute Becker # 0.80 [facility] RS [facility] Basophils (Bld) [#/Vol] 0.10 10*3/uL [facility] Basophils/100 WBC (Bld) 1 % 0 - 2 % [facility] Eosinophils/100 WBC (Bld) 4 % 0 - 4 % [facility] Hematocrit (Bld) [Volume fraction] 34.0 % Low 41 - 53 % [facility] Hemoglobin (Bld) [Mass/Vol] 11.2 g/dL Low 13.5 - 17.5 g/dL [facility] Interpretation and review of laboratory results Abnormal [facility] Lymphocytes/100 WBC (Bld) 29 % 24 - 44 % [facility] MCH (RBC) [Entitic mass] 30.9 pg 26 - 34 pg [facility] MCHC (RBC) [Mass/Vol] 32.8 g/dL 31 - 37 g/dL B [facility] MCV (RBC) [Entitic vol] 94.3 fL 80 - 100 fL [facility] Monocytes/100 WBC (Bld) 9 % High 1 - 7 % [facility] Platelet distribution width (Bld) [Ratio] 14.2 % 11.5 - 14.9 % [facility] Platelet mean volume (Bld) [Entitic vol] 9.2 fL 6.0 - 12.0 fL [facility] Platelets (Bld) [#/Vol] 150 10*3/uL [facility] RBC (Bld) [#/Vol] 3.61 10*6/uL Low 4.5 - 5.9 m/uL [facility] Segmented neutrophils/100 WBC (Bld) 57 % 36 - 66 % [facility] Segs Absolute 4.80 [facility] WBC (Bld) [#/Vol] 8.4 10*3/uL [facility] CBC with Diffon 07-08-2022 Abs. Basophil 0.10 k/uL Normal 0.0-0.2 [facility] Comment on above: Performed By: #### B MP, CBC #### [facility] [address] [place] [address] Block Sealer: You Bro DO Abs.Neutrophil (Seg) 4.80 k/uL Normal 1.3-9.1 [facility] Comment on above: Performed By: #### B MP, CBC #### [facility] [address] [place] [address] Block Sealer: You Bro DO Basophils/100 WBC (Bld) 1 % Normal 0-2 [facility] Comment on above: Performed By: #### B MP, CBC #### [facility] [address] [place] [address] Block Sealer: You Bro DO Eosinophils (Bld) [#/Vol] 0.30 10*3/uL Normal 0.0-0.4 [facility] Comment on above: Performed By: #### B MP, CBC #### [facility] [address] [place] [address] Block Sealer: You Bro DO Eosinophils/100 WBC (Bld) 4 % Normal 0-4 [facility] Comment on above: Performed By: #### B MP, CBC #### [facility] [address] [place] [address] Block Sealer: You Bro DO Erythrocyte distribution width (RBC) [Ratio] 14.2 % Normal 11.5-14.9 [facility] Comment on above: Performed By: #### B MP, CBC #### [facility] [address] [place] [address] Block Sealer: You Bro DO Hematocrit (Bld) [Volume fraction] 34.0 % Low 41-53 [facility] Comment on above: Performed By: #### B MP, CBC #### [facility] [address] [place] [address] Block Sealer: You Bro DO Hemoglobin (Bld) [Mass/Vol] 11.2 g/dL Low 13.5-17.5 [facility] Comment on above: Performed By: #### B MP, CBC #### [facility] [address] [place] [address] Block Sealer: You Bro DO Lymphocytes (Bld) [#/Vol] 2.40 10*3/uL Normal 1.0-4.8 [facility] Comment on above: Performed By: #### B MP, CBC #### [facility] [address] [place] [address] Block Sealer: You Bro DO Lymphocytes/100 WBC (Bld) 29 % Normal 24-44 [facility] Comment on above: Performed By: #### B MP, CBC #### [facility] [address] [place] [address] Block Sealer: You Bro DO MCH (RBC) [Entitic mass] 30.9 pg Normal 26-34 [facility] Comment on above: Performed By: #### B MP, CBC #### [facility] [address] [place] [address] Block Sealer: You Bro DO MCHC (RBC) [Mass/Vol] 32.8 g/dL Normal 31-37 [facility] Comment on above: Performed By: #### B MP, CBC #### [facility] [address] [place] [address] Block Sealer: You Bro DO MCV (RBC) [Entitic vol] 94.3 fL Normal 80-100 [facility] Comment on above: Performed By: #### B MP, CBC #### [facility] [address] [place] [address] Block Sealer: You Bro DO Monocytes (Bld) [#/Vol] 0.80 10*3/uL Normal 0.1-1.3 [facility] Comment on above: Performed By: #### B MP, CBC #### [facility] [address] [place] [place] [address] Block Sealer: You Bro DO Monocytes/100 WBC (Bld) 9 % High 1-7 [facility] Comment on above: Performed By: #### B MP, CBC #### [facility] [place] [facility] [place] [address] Block Sealer: You Bro DO Neutrophil (Seg) 57 % Normal 36-66 [facility] Comment on above: Performed By: #### B MP, CBC #### [facility] [address] [place] [address] Block Sealer: You Bro DO Platelet mean volume (Bld) [Entitic vol] 9.2 fL Normal 6.0-12.0 [facility] Comment on above: Performed By: #### B MP, CBC #### [facility] [address] [place] [address] Block Sealer: You Bro DO Platelets (Bld) [#/Vol] 150 10*3/uL Normal 150-450 [facility] Comment on above: Performed By: #### B MP, CBC #### [facility] [address] [facility] [place] [address] Block Sealer: You Bro DO RBC (Bld) [#/Vol] 3.61 10*6/uL Low 4.5-5.9 [facility] Comment on above: Performed By: #### B MP, CBC #### [facility] [address] [facility] [place] [address] Block Sealer: You Bro DO WBC (Bld) [#/Vol] 8.4 10*3/uL Normal 3.5-11.0 [facility] Comment on above: Performed By: #### B MP, CBC #### [facility] [address] [facility] [place] [address] Block Sealer: You Bro DO POC Glucose Fingerstickon Glucose [Mass/Vol] 267 mg/dL High 75 - 110 mg/dL [facility] Interpretation and review of laboratory results Abnormal [facility] Glucose [Mass/Vol] 160 mg/dL High 75 - 110 mg/dL [facility] Interpretation and review of laboratory results Abnormal [facility] POC Glucose Fingerstickon Glucose [Mass/Vol] 210 mg/dL High 75 - 110 mg/dL [facility] Interpretation and review of laboratory results Abnormal [facility] Glucose [Mass/Vol] 173 mg/dL High 75 - 110 mg/dL [facility] Interpretation and review of laboratory results Abnormal [facility] Glucose [Mass/Vol] 247 mg/dL High 75 - 110 mg/dL [facility] Interpretation and review of laboratory results Abnormal [facility] Glucose [Mass/Vol] 158 mg/dL High 75 - 110 mg/dL [facility] Interpretation and review of laboratory results Abnormal [facility] Basic Metab w/rfx MGon 07-06 Anion gap [Moles/Vol] 15 mmol/L Normal 9-17 [facility] Comment on above: Performed By: #### B MPX ####[facility] [id number] [place] [address] Lab Director: You Bro DO Calcium [Mass/Vol] 9.4 mg/dL Normal 8.6-10.4 [facility] Comment on above: Performed By: #### B MPX ####[facility] [id number] [place] [address] Lab Director: You Bro DO Chloride [Moles/Vol] 101 mmol/L Normal 98-107 [facility] Comment on above: Performed By: #### B MPX ####[facility] [id number] [facility] [place] [address] Lab Director: You Bro DO CO2 [Moles/Vol] 22 mmol/L Normal 20-31 [facility] Comment on above: Performed By: #### B MPX ####[facility] [id number] [facility], [place] [phone] Director: You Bro DO Creatinine [Mass/Vol] 4.01 mg/dL High 0.70-1.20 [facility] Comment on above: Performed By: #### B MPX ####[facility] [id number] [facility] [place] [address] Lab Director: You Bro DO GFR/1.73 sq M.predicted among non-blacks MDRD (S/P/Bld) [Vol rate/Area] 16 mL/min/{1.73_m2} Low >60 [facility] Comment on above: Result Comment: [...] tubular secretion. Performed By: #### B MPX ####[facility] [id number] [facility] [place] [address] Lab Director: You Bro DO Glucose [Mass/Vol] 191 mg/dL High 70-99 [facility] Comment on above: Performed By: #### B MPX ####[facility] [id number] [facility] [place] [address] Lab Director: You Bro DO Potassium [Moles/Vol] 4.6 mmol/L Normal 3.7-5.3 [facility] Comment on above: Performed By: #### B MPX ####[facility] [id number] [place] [address] Lab Director: You Bro DO Sodium [Moles/Vol] 138 mmol/L Normal 135-144 [facility] Comment on above: Performed By: #### B MPX ####[facility] [id number] [place] [address].[place] [address] Lab Director: You Bro DO Urea nitrogen [Mass/Vol] 66 mg/dL High 8-23 [facility] Comment on above: Performed By: #### B MPX ####[facility] [id number] [place] [address] Lab Director: You Bro DO Basic Metabolic Panel w/ Ref artis to MGon 07-06-2022 Anion gap [Moles/Vol] 15 mmol/L 9 - 17 mmol/L [facility] Calcium [Mass/Vol] 9.4 mg/dL 8.6 - 10. 4 mg/dL [facility] Chloride [Moles/Vol] 101 mmol/L 98 - 10 7 mmol/L [facility] CO2 [Moles/Vol] 22 mmol/L 20 - 31 mmol/L [facility] Creatinine [Mass/Vol] 4.01 mg/dL High 0.70 - 1.20 mg/dL [facility] GFR/1.73 sq M.predicted MDRD (S/P/Bld) [Vol rate/Area] 16 mL/min/{1.73_m2} Low - PINF [facility] Comment on above: These results are not [...] 191 mg/dL High 70 - 99 mg/dL [facility] Interpretation and review of laboratory results Abnormal [facility] Potassium [Moles/Vol] 4.6 mmol/L 3.7 - 5.3 mmol/L [facility] Sodium [Moles/Vol] 138 mmol/L 135 - 144 mmol/L [facility] Urea nitrogen [Mass/Vol] 66 mg/dL High 8 - 23 mg/dL [facility] POC Glucose Fingerstickon Glucose [Mass/Vol] 261 mg/dL High 75 - 110 mg/dL [facility] Interpretation and review of laboratory results Abnormal [facility] Glucose [Mass/Vol] 181 mg/dL High 75 - 110 mg/dL [facility] Interpretation and review of laboratory results Abnormal [facility] Glucose [Mass/Vol] 228 mg/dL High 75 - 110 mg/dL [facility] Interpretation and review of laboratory results Abnormal [facility] Glucose [Mass/Vol] 163 mg/dL High 75 - 110 mg/dL [facility] Interpretation and review of laboratory results Abnormal [facility] POC Glucose Fingerstickon Glucose [Mass/Vol] 239 mg/dL High 75 - 110 mg/dL [facility] Interpretation and review of laboratory results Abnormal [facility] Glucose [Mass/Vol] 191 mg/dL High 75 - 110 mg/dL [facility] Interpretation and review of laboratory results Abnormal [facility] Glucose [Mass/Vol] 213 mg/dL High 75 - 110 mg/dL [facility] Interpretation and review of laboratory results Abnormal [facility] Glucose [Mass/Vol] 184 mg/dL High 75 - 110 mg/dL [facility] Interpretation and review of laboratory results Abnormal [facility] POC Glucose Fingerstickon Glucose [Mass/Vol] 215 mg/dL High 75 - 110 mg/dL [facility] Interpretation and review of laboratory results Abnormal [facility] Glucose [Mass/Vol] 172 mg/dL High 75 - 110 mg/dL [facility] Interpretation and review of laboratory results Abnormal [facility] Glucose [Mass/Vol] 276 mg/dL High 75 - 110 mg/dL [facility] Interpretation and review of laboratory results Abnormal [facility] Glucose [Mass/Vol] 176 mg/dL High 75 - 110 mg/dL [facility] Interpretation and review of laboratory results Abnormal [facility] Basic Metabolic Panelon 06-10 Anion gap [Moles/Vol] 13 mmol/L 9 - 17 mmol/L [facility] Calcium [Mass/Vol] 9.5 mg/dL 8.6 - 10. 4 mg/dL [facility] Chloride [Moles/Vol] 100 mmol/L 98 - 10 7 mmol/L [facility] CO2 [Moles/Vol] 25 mmol/L 20 - 31 mmol/L [facility] Creatinine [Mass/Vol] 3.55 mg/dL High 0.70 - 1.20 mg/dL [facility] GFR/1.73 sq M.predicted MDRD (S/P/Bld) [Vol rate/Area] 19 mL/min/{1.73_m2} Low - PINF [facility] Comment on above: These results are not [...] 159 mg/dL High 70 - 99 mg/dL [facility] Interpretation and review of laboratory results Abnormal [facility] Potassium [Moles/Vol] 4.3 mmol/L 3.7 - 5.3 mmol/L [facility] Sodium [Moles/Vol] 138 mmol/L 135 - 144 mmol/L [facility] Urea nitrogen [Mass/Vol] 47 mg/dL High 8 - 23 mg/dL [facility] Basic Metabolic Profon 07-03 Anion gap [Moles/Vol] 13 mmol/L Normal 9-17 [facility] Comment on above: Performed By: #### B DARLINE SAM, MG ####[facility] [id number] [facility] [place] [address] Lab Director: You Bro DO Calcium [Mass/Vol] 9.5 mg/dL Normal 8.6-10.4 [facility] Comment on above: Performed By: #### B DARLINE SAM, MG ####[facility] [id number] [facility] [place] [address] Lab Director: You Bro DO Chloride [Moles/Vol] 100 mmol/L Normal 98-107 [facility] Comment on above: Performed By: #### B CECY, CDP, MG ####[facility] [id number] [facility] [place] [address] Lab Director: You Bro DO CO2 [Moles/Vol] 25 mmol/L Normal 20-31 [facility] Comment on above: Performed By: #### B MP, CDP, MG ####[facility] [id number] [facility] [place] [address] Lab Director: You Bro DO Creatinine [Mass/Vol] 3.55 mg/dL High 0.70-1.20 [facility] Comment on above: Performed By: #### B MP, CDP, MG ####[facility] [id number] [facility] [place] [address] Lab Director: You Bro DO GFR/1.73 sq M.predicted among non-blacks MDRD (S/P/Bld) [Vol rate/Area] 19 mL/min/{1.73_m2} Low >60 [facility] Comment on above: Result Comment: [...] tubular secretion. Performed By: #### B MP, CDP, MG ####[facility] [id number] [facility] [place] [address] Lab Director: You Bro DO Glucose [Mass/Vol] 159 mg/dL High 70-99 [facility] Comment on above: Performed By: #### B MP, CDP, MG ####[facility] [id number] [facility] [place] [address] Lab Director: You Bro DO Potassium [Moles/Vol] 4.3 mmol/L Normal 3.7-5.3 [facility] Comment on above: Performed By: #### B MP, CDP, MG ####[facility] [id number] [facility] [place] [address] Lab Director: You Bro DO Sodium [Moles/Vol] 138 mmol/L Normal 135-144 [facility] Comment on above: Performed By: #### B DARLINE SAM, MG ####[facility] [id number] [place] [address] lab Director: You Bro DO Urea nitrogen [Mass/Vol] 47 mg/dL High 8-23 [facility] Comment on above: Performed By: #### B DARLINE SAM, MG ####[facility] [id number] [place] [address] lab Director: You Bro DO CBC with Auto Differentialon 07-03-2022 Absolute Eos # 0.30 [facility] Absolute Lymph # 2.50 [facility] Absolute Becker # 1.10 [facility] RS [facility] Basophils (Bld) [#/Vol] 0.10 10*3/uL [facility] Basophils/100 WBC (Bld) 1 % 0 - 2 % [facility] Eosinophils/100 WBC (Bld) 3 % 0 - 4 % [facility] Hematocrit (Bld) [Volume fraction] 33.8 % Low 41 - 53 % [facility] Hemoglobin (Bld) [Mass/Vol] 11.2 g/dL Low 13.5 - 17.5 g/dL [facility] Interpretation and review of laboratory results Abnormal [facility] Lymphocytes/100 WBC (Bld) 22 % Low 24 - 44 % [facility] MCH (RBC) [Entitic mass] 30.6 pg 26 - 34 pg [facility] MCHC (RBC) [Mass/Vol] 33.2 g/dL 31 - 37 g/dL [facility] MCV (RBC) [Entitic vol] 92.0 fL 80 - 100 fL [facility] Monocytes/100 WBC (Bld) 9 % High 1 - 7 % [facility] Platelet distribution width (Bld) [Ratio] 14.9 % 11.5 - 14.9 % [facility] Platelet mean volume (Bld) [Entitic vol] 8.2 fL 6.0 - 12.0 fL [facility] Platelets (Bld) [#/Vol] 243 10*3/uL [facility] RBC (Bld) [#/Vol] 3.67 10*6/uL Low 4.5 - 5.9 m/uL [facility] Segmented neutrophils/100 WBC (Bld) 65 % 36 - 66 % [facility] Segs Absolute 7.80 [facility] WBC (Bld) [#/Vol] 11.8 10*3/uL High [facility] CBC with Diffon 07-03-2022 Abs. Basophil 0.10 k/uL Normal 0.0-0.2 [facility] Comment on above: Performed By: #### B CECY, CDP, MG ####[facility] [id number] [place] [address] Lab Director: You Bro DO Abs.Neutrophil (Seg) 7.80 k/uL Normal 1.3-9.1 [facility] Comment on above: Performed By: #### B CECY, DARLINE, MG ####[facility] [id number] [place], [place] [address])[phone] Director: You Bro DO Basophils/100 WBC (Bld) 1 % Normal 0-2 [facility] Comment on above: Performed By: #### B MP, CDP, MG ####[facility] [id number] [place] [address] Lab Director: You Bro DO Eosinophils (Bld) [#/Vol] 0.30 10*3/uL Normal 0.0-0.4 [facility] Comment on above: Performed By: #### B MP, CDP, MG ####[facility] [id number] [place] [address] Lab Director: You Bro DO Eosinophils/100 WBC (Bld) 3 % Normal 0-4 [facility] Comment on above: Performed By: #### B MP, CDP, MG ####[facility] [id number] [facility] [place] [address] Lab Director: You Bro DO Erythrocyte distribution width (RBC) [Ratio] 14.9 % Normal 11.5-14.9 [facility] Comment on above: Performed By: #### B MP, CDP, MG ####[facility] [id number] [facility], [place] [phone] Director: You Bro DO Hematocrit (Bld) [Volume fraction] 33.8 % Low 41-53 [facility] Comment on above: Performed By: #### B MP, CDP, MG ####[facility] [id number] [facility] [place] [address] Lab Director: You Bro DO Hemoglobin (Bld) [Mass/Vol] 11.2 g/dL Low 13.5-17.5 [facility] Comment on above: Performed By: #### B CECY, CDP, MG ####[facility] [id number] [facility], [place] [phone] Director: You Bro DO Lymphocytes (Bld) [#/Vol] 2.50 10*3/uL Normal 1.0-4.8 [facility] Comment on above: Performed By: #### B MP, CDP, MG ####[facility] [id number] [facility], [place] [phone] Director: You Bro DO Lymphocytes/100 WBC (Bld) 22 % Low 24-44 [facility] Comment on above: Performed By: #### B MP, CDP, MG ####[facility] [id number] [facility] [place] [address] Lab Director: You Bro DO MCH (RBC) [Entitic mass] 30.6 pg Normal 26-34 [facility] Comment on above: Performed By: #### B CECY, DARLINE, MG ####[facility] [id number], [place] [phone] Director: You Bro DO MCHC (RBC) [Mass/Vol] 33.2 g/dL Normal 31-37 [facility] Comment on above: Performed By: #### B CECY, CDP, MG ####[facility] [id number] [facility], [place] [phone] Director: You Bro DO MCV (RBC) [Entitic vol] 92.0 fL Normal 80-100 [facility] Comment on above: Performed By: #### B CECY, DARLINE, MG ####[address], [place] [phone] Director: You Bro DO Monocytes (Bld) [#/Vol] 1.10 10*3/uL Normal 0.1-1.3 [facility] Comment on above: Performed By: #### B CECY, DARLINE, MG ####[address] [phone] Director: You Bro DO Monocytes/100 WBC (Bld) 9 % High 1-7 [facility] Comment on above: Performed By: #### B CECY, CDP, MG ####[facility] [id number] [place], [place] [phone] Director: You Bro DO Neutrophil (Seg) 65 % Normal 36-66 [facility] Comment on above: Performed By: #### B CECY, CDP, MG ####[facility] [id number] [facility], [place] [phone] Director: You Bro DO Platelet mean volume (Bld) [Entitic vol] 8.2 fL Normal 6.0-12.0 [facility] Comment on above: Performed By: #### B MP, CDP, MG ####[facility] [id number], [place] [phone] Director: You Bro DO Platelets (Bld) [#/Vol] 243 10*3/uL Normal 150-450 [facility] Comment on above: Performed By: #### B MP, CDP, MG ####[facility] [id number], [place] [phone] Director: You Bro DO RBC (Bld) [#/Vol] 3.67 10*6/uL Low 4.5-5.9 [facility] Comment on above: Performed By: #### B CECY, CDP, MG ####[facility] [id number] [facility].[place], [place] [phone] Director: You Bro DO WBC (Bld) [#/Vol] 11.8 10*3/uL High 3.5-11.0 [facility] Comment on above: Performed By: #### B CECY, CDP, MG ####[facility] [id number] [facility].[place], [place] [phone] Director: You Bro DO Magnesiumon 07-03-2022 Magnesium [Mass/Vol] 1.8 mg/dL Normal 1.6-2.6 [facility] Comment on above: Performed By: #### B CECY, CDP, MG ####[facility] [id number] [facility], [place] [phone] Director: You Bro DO Magnesium [Mass/Vol] 1.8 mg/dL 1.6 - 2 .6 mg/dL [facility] No Panel Informationon 07-03 [facility] POC Glucose Fingerstickon Glucose [Mass/Vol] 248 mg/dL High 75 - 110 mg/dL [facility] Interpretation and review of laboratory results Abnormal [facility] Glucose [Mass/Vol] 168 mg/dL High 75 - 110 mg/dL [facility] Interpretation and review of laboratory results Abnormal [facility] Glucose [Mass/Vol] 214 mg/dL High 75 - 110 mg/dL [facility] Interpretation and review of laboratory results Abnormal [facility] Glucose [Mass/Vol] 151 mg/dL High 75 - 110 mg/dL [facility] Interpretation and review of laboratory results Abnormal [facility] POC Glucose Fingerstickon Glucose [Mass/Vol] 206 mg/dL High 75 - 110 mg/dL [facility] Interpretation and review of laboratory results Abnormal [facility] Glucose [Mass/Vol] 203 mg/dL High 75 - 110 mg/dL [facility] Interpretation and review of laboratory results Abnormal [facility] Glucose [Mass/Vol] 168 mg/dL High 75 - 110 mg/dL [facility] Interpretation and review of laboratory results Abnormal [facility] Basic Metab w/rfx MGon 07-01 Anion gap [Moles/Vol] 11 mmol/L Normal 9-17 [facility] Comment on above: Performed By: #### B MP, CBC #### [facility] [address] [place] [address] Block Sealer: You Bro, DO Calcium [Mass/Vol] 9.2 mg/dL Normal 8.6-10.4 [facility] Comment on above: Performed By: #### B MP, CBC #### [facility] [address] [place], [place] [phone] Block Sealer: You Bro DO Chloride [Moles/Vol] 98 mmol/L Normal 98-107 [facility] Comment on above: Performed By: #### B MP, CBC #### [facility] [address] [place] [address] Block Sealer: You Bro DO CO2 [Moles/Vol] 27 mmol/L Normal 20-31 [facility] Comment on above: Performed By: #### B MP, CBC #### [facility] [address] [facility] [place] [address] Block Sealer: You Bro DO Creatinine [Mass/Vol] 4.26 mg/dL High 0.70-1.20 [facility] Comment on above: Performed By: #### B CECY, CBC #### [facility] [address] [facility] [place] [address] Block Sealer: You Bro DO GFR/1.73 sq M.predicted among non-blacks MDRD (S/P/Bld) [Vol rate/Area] 15 mL/min/{1.73_m2} Low >60 [facility] Comment on above: Result Comment: [...] Performed By: #### B CECY, CBC #### [facility] [address] [facility] [place] [address] Block Sealer: You Bro DO Glucose [Mass/Vol] 147 mg/dL High 70-99 [facility] Comment on above: Performed By: #### B MP, CBC #### [facility] [address] [facility] [place] [address] Block Sealer: You Bro DO Potassium [Moles/Vol] 3.9 mmol/L Normal 3.7-5.3 [facility] Comment on above: Performed By: #### B MP, CBC #### [facility] [address] [facility] [place] [address] Block Sealer: You Bro DO Sodium [Moles/Vol] 136 mmol/L Normal 135-144 [facility] Comment on above: Performed By: #### B MP, CBC #### [facility] [address] [facility] [place] [address] Block Sealer: You Bro DO Urea nitrogen [Mass/Vol] 44 mg/dL High 12-01 [facility] Comment on above: Performed By: #### B CECY, CBC #### [facility] [address] [facility] [place] [address] Block Sealer: You Bro DO Basic Metabolic Panel w/ Ref artis to MGon 07-01-2022 Anion gap [Moles/Vol] 11 mmol/L 9 - 17 mmol/L [facility] Calcium [Mass/Vol] 9.2 mg/dL 8.6 - 10. 4 mg/dL [facility] Chloride [Moles/Vol] 98 mmol/L 98 - 10 7 mmol/L [facility] CO2 [Moles/Vol] 27 mmol/L 20 - 31 mmol/L [facility] Creatinine [Mass/Vol] 4.26 mg/dL High 0.70 - 1.20 mg/dL [facility] GFR/1.73 sq M.predicted MDRD (S/P/Bld) [Vol rate/Area] 15 mL/min/{1.73_m2} Low - PINF [facility] Comment on above: These results are not [...] 147 mg/dL High 70 - 99 mg/dL [facility] Potassium [Moles/Vol] 3.9 mmol/L 3.7 - 5.3 mmol/L [facility] Sodium [Moles/Vol] 136 mmol/L 135 - 144 mmol/L [facility] Urea nitrogen [Mass/Vol] 44 mg/dL High 8 - 23 mg/dL [facility] CBC auto differentialon 06-10 Absolute Eos # 0.40 [facility] Absolute Lymph # 2.30 [facility] Absolute Becker # 1.10 [facility] Basophils (Bld) [#/Vol] 0.10 10*3/uL [facility] Basophils/100 WBC (Bld) 1 % 0 - 2 % [facility] Eosinophils/100 WBC (Bld) 3 % 0 - 4 % [facility] Hematocrit (Bld) [Volume fraction] 32.9 % Low 41 - 53 % [facility] Hemoglobin (Bld) [Mass/Vol] 11.0 g/dL Low 13.5 - 17.5 g/dL [facility] Interpretation and review of laboratory results Abnormal [facility] Lymphocytes/100 WBC (Bld) 19 % Low 24 - 44 % [facility] MCH (RBC) [Entitic mass] 30.9 pg 26 - 34 pg [facility] MCHC (RBC) [Mass/Vol] 33.5 g/dL 31 - 37 g/dL [facility] MCV (RBC) [Entitic vol] 92.4 fL 80 - 100 fL [facility] Monocytes/100 WBC (Bld) 9 % High 1 - 7 % [facility] Platelet distribution width (Bld) [Ratio] 14.5 % 11.5 - 14.9 % [facility] Platelet mean volume (Bld) [Entitic vol] 8.0 fL 6.0 - 12.0 fL [facility] Platelets (Bld) [#/Vol] 285 10*3/uL [facility] RBC (Bld) [#/Vol] 3.56 10*6/uL Low 4.5 - 5.9 m/uL [facility] Segmented neutrophils/100 WBC (Bld) 68 % High 36 - 66 % [facility] Segs Absolute 8.70 [facility] WBC (Bld) [#/Vol] 12.6 10*3/uL High [facility] CBC with Diffon 07-01-2022 Abs. Basophil 0.10 k/uL Normal 0.0-0.2 [facility] Comment on above: Performed By: #### B MP, CBC #### [facility] [address] [place] [address] Block Sealer: You Bro DO Abs.Neutrophil (Seg) 8.70 k/uL Normal 1.3-9.1 [facility] Comment on above: Performed By: #### B MP, CBC #### [facility] [place] [address] Block Sealer: You Bro DO Basophils/100 WBC (Bld) 1 % Normal 0-2 [facility] Comment on above: Performed By: #### B MP, CBC #### [facility] [place] [address] Block Sealer: You Bro DO Eosinophils (Bld) [#/Vol] 0.40 10*3/uL Normal 0.0-0.4 [facility] Comment on above: Performed By: #### B MP, CBC #### [facility] [place] [address] Block Sealer: You Bro DO Eosinophils/100 WBC (Bld) 3 % Normal 0-4 [facility] Comment on above: Performed By: #### B MP, CBC #### [facility] [place] [address] Block Sealer: You Bro DO Erythrocyte distribution width (RBC) [Ratio] 14.5 % Normal 11.5-14.9 [facility] Comment on above: Performed By: #### B MP, CBC #### [facility] [address] [place] [address] Block Sealer: You Bro DO Hematocrit (Bld) [Volume fraction] 32.9 % Low 41-53 [facility] Comment on above: Performed By: #### B MP, CBC #### [facility] [address] [place] [address] Block Sealer: You Bro DO Hemoglobin (Bld) [Mass/Vol] 11.0 g/dL Low 13.5-17.5 [facility] Comment on above: Performed By: #### B CECY, CBC #### [facility] [place] [address] Block Sealer: You Bro DO Lymphocytes (Bld) [#/Vol] 2.30 10*3/uL Normal 1.0-4.8 [facility] Comment on above: Performed By: #### B CECY, CBC #### [facility] [place] [address] Block Sealer: You Bro DO Lymphocytes/100 WBC (Bld) 19 % Low 24-44 [facility] Comment on above: Performed By: #### B MP, CBC #### [facility] [place] [address] Block Sealer: You Bro DO MCH (RBC) [Entitic mass] 30.9 pg Normal 26-34 [facility] Comment on above: Performed By: #### B MP, CBC #### [facility] [place] [address] Block Sealer: You Bro DO MCHC (RBC) [Mass/Vol] 33.5 g/dL Normal 31-37 [facility] Comment on above: Performed By: #### B MP, CBC #### [facility] [place] [address] Block Sealer: You Bro DO MCV (RBC) [Entitic vol] 92.4 fL Normal 80-100 [facility] Comment on above: Performed By: #### B MP, CBC #### [facility] [place] [address] Block Sealer: You Bro DO Monocytes (Bld) [#/Vol] 1.10 10*3/uL Normal 0.1-1.3 [facility] Comment on above: Performed By: #### B CECY, CBC #### [facility] [address] [place] [address] Block Sealer: You Bro DO Monocytes/100 WBC (Bld) 9 % High 1-7 [facility] Comment on above: Performed By: #### B MP, CBC #### [facility] [address] [place], [place] [address] [place] [address] Block Sealer: You Bro DO Neutrophil (Seg) 68 % High 36-66 [facility] Comment on above: Performed By: #### B MP, CBC #### [facility] [address] [place], [place] [address] [address] Block Sealer: You Bro DO Platelet mean volume (Bld) [Entitic vol] 8.0 fL Normal 6.0-12.0 [facility] Comment on above: Performed By: #### B MP, CBC #### [facility] [place] [address] Block Sealer: You Bro DO Platelets (Bld) [#/Vol] 285 10*3/uL Normal 150-450 [facility] Comment on above: Performed By: #### B MP, CBC #### [facility] [address] [facility] [place] [address] Block Sealer: You Bro DO RBC (Bld) [#/Vol] 3.56 10*6/uL Low 4.5-5.9 [facility] Comment on above: Performed By: #### B MP, CBC #### [facility] [address] [facility] [place] [address] Block Sealer: You Bro DO WBC (Bld) [#/Vol] 12.6 10*3/uL High 3.5-11.0 [facility] Comment on above: Performed By: #### B MP, CBC #### [facility] [address] [facility] [place] [address] Block Sealer: You Bro DO Hepatic Function Panelon Albumin [Mass/Vol] 3.1 g/dL Low 3.5 - 5.2 g/dL [facility] ALP [Catalytic activity/Vol] 94 U/L 40 - 129 U/L [facility] ALT [Catalytic activity/Vol] 10 U/L 5 - 41 U/L [facility] AST [Catalytic activity/Vol] 19 U/L NINF - 40 U/L [facility] Bilirubin [Mass/Vol] 0.4 mg/dL 0.3 - 1 .2 mg/dL [facility] Bilirubin.direct [Mass/Vol] 0.1 mg/dL NINF - 0.3 mg/dL [facility] Bilirubin.indirect [Mass/Vol] 0.3 mg/dL 0.0 - 1.0 mg/dL [facility] Protein [Mass/Vol] 7.2 g/dL 6.4 - 8.3 g/dL [facility] Liver Profileon 07-01-2022 Albumin [Mass/Vol] 3.1 g/dL Low 3.5-5.2 [facility] Comment on above: Performed By: #### B MP, CBC #### [facility] [address] [facility] [place] [address] Block Sealer: You Bro DO Alkaline Phos 94 U/L Normal 40-129 [facility] Comment on above: Performed By: #### B MP, CBC #### [facility] [address] [facility] [place] [address] Block Sealer: You Bro DO ALT [Catalytic activity/Vol] 10 U/L Normal 5-41 [facility] Comment on above: Performed By: #### B MP, CBC #### [facility] [address] [facility] [place] [address] Block Sealer: You Bro DO AST [Catalytic activity/Vol] 19 U/L Normal <40 [facility] Comment on above: Performed By: #### B MP, CBC #### [facility] [address] [facility] [place] [address] Block Sealer: You Bro DO Bilirubin [Mass/Vol] 0.4 mg/dL Normal 0.3-1.2 [facility] Comment on above: Performed By: #### B MP, CBC #### [facility] [facility] [place] [address] Block Sealer: You Bro DO Bilirubin, Indirect 0.3 mg/dL Normal 0.0-1.0 [facility] Comment on above: Performed By: #### B MP, CBC #### [facility] [address] [facility] [place] [address] Block Sealer: You Bro DO Bilirubin.indirect [Mass/Vol] 0.1 mg/dL Normal <0.3 [facility] Comment on above: Performed By: #### B MP, CBC #### [facility] [address] [place] [address] Block Sealer: You Bro DO Protein [Mass/Vol] 7.2 g/dL Normal 6.4-8.3 [facility] Comment on above: Performed By: #### B MP, CBC #### [facility] [address] [place] [address] Block Sealer: You Bro DO No Panel Informationon 07-01 Interpretation and review of laboratory results Abnormal [facility] POC Glucose Fingerstickon Glucose [Mass/Vol] 230 mg/dL High 75 - 110 mg/dL [facility] Interpretation and review of laboratory results Abnormal [facility] Glucose [Mass/Vol] 179 mg/dL High 75 - 110 mg/dL [facility] Interpretation and review of laboratory results Abnormal [facility] Glucose [Mass/Vol] 230 mg/dL High 75 - 110 mg/dL [facility] Interpretation and review of laboratory results Abnormal [facility] Stone Analysison 07-01-2022 Calculi description See Note Normal [facility] Comment on above: Result Comment: (NOT E) Specimen consists of one brown calculus. The total weight is 51 mg. Performed By: #### B MP, CBC #### [id number] [place] [address] Block Sealer: Rodrick Jones MD Composition See Note Normal [facility] Comment on above: Result Comment: (NOT [...] composition determined by FTIR analysis. Performed By: [facility] [address] [place] [id number] Vice President Network Development: Sandeep Paredes MD, PhD Performed By: #### B MP, CBC #### [id number] [address] [place], [place] [id number] Block Sealer: Rodrick Jones MD Mass 51 mg Normal [facility] Comment on above: Performed By: #### B MP, CBC #### [facility] [address] [place], [place] [address] Block Sealer: Rodrick Jones MD Basic Metabolic Panelon 06-10 Anion gap [Moles/Vol] 13 mmol/L 9 - 17 mmol/L [facility] Calcium [Mass/Vol] 9.1 mg/dL 8.6 - 10. 4 mg/dL [facility] Chloride [Moles/Vol] 98 mmol/L 98 - 10 7 mmol/L [facility] CO2 [Moles/Vol] 26 mmol/L 20 - 31 mmol/L [facility] Creatinine [Mass/Vol] 3.7 mg/dL High 0.70 - 1.20 mg/dL [facility] GFR/1.73 sq M.predicted MDRD (S/P/Bld) [Vol rate/Area] 18 mL/min/{1.73_m2} Low - PINF [facility] Glucose [Mass/Vol] 209 mg/dL High 70 - 99 mg/dL [facility] Interpretation and review of laboratory results Abnormal [facility] Potassium [Moles/Vol] 3.7 mmol/L 3.7 - 5.3 mmol/L [facility] Sodium [Moles/Vol] 137 mmol/L 135 - 144 mmol/L [facility] Urea nitrogen [Mass/Vol] 32 mg/dL High 8 - 23 mg/dL [facility] Basic Metabolic Profon 06-30 Anion gap [Moles/Vol] 13 mmol/L Normal 9-17 [facility] Comment on above: Performed By: #### B MP, CBC #### [facility] [address] [place] [address] Block Sealer: Rodrick Jones MD Calcium [Mass/Vol] 9.1 mg/dL Normal 8.6-10.4 [facility] Comment on above: Performed By: #### B MP, CBC #### [facility] [address] [place] [address] Block Sealer: Rodrick Jones MD Chloride [Moles/Vol] 98 mmol/L Normal 98-107 [facility] Comment on above: Performed By: #### B MP, CBC #### [facility] [address] [place] [address] Block Sealer: Rodrick Jones MD CO2 [Moles/Vol] 26 mmol/L Normal 20-31 [facility] Comment on above: Performed By: #### B MP, CBC #### [address] [address] Block Sealer: Rodrick Jones MD Creatinine [Mass/Vol] 3.70 mg/dL High 0.70-1.20 [facility] Comment on above: Performed By: #### B CECY, CBC #### [address] [address] Block Sealer: Rodrick Jones MD GFR/1.73 sq M.predicted among non-blacks MDRD (S/P/Bld) [Vol rate/Area] 18 mL/min/{1.73_m2} Low >60 [facility] Comment on above: Result Comment: These [...] Performed By: #### B MP, CBC #### [address] [address] Block Sealer: Rodrick Jones MD Glucose [Mass/Vol] 209 mg/dL High 70-99 [facility] Comment on above: Performed By: #### B MP, CBC #### [facility] [address] [place] [address] Block Sealer: Rodrick Jones MD Potassium [Moles/Vol] 3.7 mmol/L Normal 3.7-5.3 [facility] Comment on above: Performed By: #### B MP, CBC #### [facility] [address] [place] [address] Block Sealer: Rodrick Jones MD Sodium [Moles/Vol] 137 mmol/L Normal 135-144 [facility] Comment on above: Performed By: #### B MP, CBC #### [facility] [address] [place] [address] Block Sealer: Rodrick Jones MD Urea nitrogen [Mass/Vol] 32 mg/dL High 8-23 [facility] Comment on above: Performed By: #### B MP, CBC #### [facility] [address] [place] [address] Block Sealer: Rodrick Jones MD CBCon 06-30-2022 Erythrocyte distribution width (RBC) [Ratio] 13.7 % Normal 11.8-14.4 [facility] Comment on above: Performed By: #### B MP, CBC #### [facility] [address] [place] [address] Block Sealer: Rodrick Jones MD Hematocrit (Bld) [Volume fraction] 36.0 % Low 40.7-50.3 [facility] Comment on above: Performed By: #### B MP, CBC #### [facility] [address] [place] [address] Block Sealer: Rodrick Jones MD Hemoglobin (Bld) [Mass/Vol] 11.6 g/dL Low 13.0-17.0 [facility] Comment on above: Performed By: #### B MP, CBC #### [address] [address] Block Sealer: Rodrick Jones MD MCH (RBC) [Entitic mass] 30.9 pg Normal 25.2-33.5 [facility] Comment on above: Performed By: #### B MP, CBC #### [place] [address] Block Sealer: Rodrick Jones MD MCHC (RBC) [Mass/Vol] 32.2 g/dL Normal 28.4-34.8 [facility] Comment on above: Performed By: #### B MP, CBC #### [place] [address] Block Sealer: Rodrick Jones MD MCV (RBC) [Entitic vol] 95.7 fL Normal 82.6-102.9 [facility] Comment on above: Performed By: #### B MP, CBC #### [address] [address] Block Sealer: Rodrick Jones MD NRBC Automated 0.0 per 100 WBC Normal 0.0 [facility] Comment on above: Performed By: #### B MP, CBC #### [place] [address] Block Sealer: Rodrick Jones MD Platelet mean volume (Bld) [Entitic vol] 9.7 fL Normal 8.1-13.5 [facility] Comment on above: Performed By: #### B MP, CBC #### [address] [address] Block Sealer: Rodrick Jones MD Platelets (Bld) [#/Vol] 276 10*3/uL Normal 138-453 [facility] Comment on above: Performed By: #### B MP, CBC #### [facility] [address] [place], [place] [id number] Block Sealer: Rodrick Jones MD RBC (Bld) [#/Vol] 3.76 10*6/uL Low 4.21-5.77 [facility] Comment on above: Performed By: #### B MP, CBC #### [facility] [address] [place], [place] [id number] Block Sealer: Rodrick Jones MD WBC (Bld) [#/Vol] 13.6 10*3/uL High 3.5-11.3 [facility] Comment on above: Performed By: #### B MP, CBC #### [facility] [address] [place], [place] [phone] Block Sealer: Rodrick Jones MD Hematocrit (Bld) [Volume fraction] 36.0 % Low 40.7 - 50.3 % [facility] Hemoglobin (Bld) [Mass/Vol] 11.6 g/dL Low 13.0 - 17.0 g/dL [facility] Interpretation and review of laboratory results Abnormal [facility] MCH (RBC) [Entitic mass] 30.9 pg 25.2 - 33.5 pg [facility] MCHC (RBC) [Mass/Vol] 32.2 g/dL 28.4 - 34.8 g/dL [facility] MCV (RBC) [Entitic vol] 95.7 fL 82.6 - 102.9 fL [facility] NRBC Automated 0.0 0.0 per 100 WBC [facility] Platelet distribution width (Bld) [Ratio] 13.7 % 11.8 - 14.4 % [facility] Platelet mean volume (Bld) [Entitic vol] 9.7 fL 8.1 - 13.5 fL [facility] Platelets (Bld) [#/Vol] 276 10*3/uL [facility] RBC (Bld) [#/Vol] 3.76 10*6/uL Low 4.21 - 5.7 7 m/uL [facility] WBC (Bld) [#/Vol] 13.6 10*3/uL High [facility] POC Glucose Fingerstickon Glucose [Mass/Vol] 223 mg/dL High 75 - 110 mg/dL [facility] Interpretation and review of laboratory results Abnormal [facility] Glucose [Mass/Vol] 180 mg/dL High 75 - 110 mg/dL [facility] Interpretation and review of laboratory results Abnormal [facility] Glucose [Mass/Vol] 216 mg/dL High 75 - 110 mg/dL [facility] Interpretation and review of laboratory results Abnormal [facility] Glucose [Mass/Vol] 174 mg/dL High 75 - 110 mg/dL [facility] Interpretation and review of laboratory results Abnormal [facility] Basic Metab w/rfx MGon 06-29 Anion gap [Moles/Vol] 11 mmol/L Normal 9-17 [facility] Comment on above: Performed By: #### B CECY, CBC #### [facility] [address] [place] [address] Block Sealer: Rodrick Jones MD Calcium [Mass/Vol] 9.1 mg/dL Normal 8.6-10.4 [facility] Comment on above: Performed By: #### B MP, CBC #### [facility] [address] [place], [place] [id number] Block Sealer: Rodrick Jones MD Chloride [Moles/Vol] 103 mmol/L Normal 98-107 [facility] Comment on above: Performed By: #### B MP, CBC #### [facility] [place], [place] [id number] Block Sealer: Rodrick Jones MD CO2 [Moles/Vol] 24 mmol/L Normal 20-31 [facility] Comment on above: Performed By: #### B MP, CBC #### [facility] [address] [place] [address] Block Sealer: Rodrick Jones MD Creatinine [Mass/Vol] 4.38 mg/dL High 0.70-1.20 [facility] Comment on above: Performed By: #### B MP, CBC #### [facility] [address] [place] [address] Block Sealer: Rodrick Jones MD GFR/1.73 sq M.predicted among non-blacks MDRD (S/P/Bld) [Vol rate/Area] 15 mL/min/{1.73_m2} Low >60 [facility] Comment on above: Result Comment: These [...] Performed By: #### B CECY, CBC #### [facility] [address] [place] [address] Block Sealer: Rodrick Jones MD Glucose [Mass/Vol] 161 mg/dL High 70-99 [facility] Comment on above: Performed By: #### B MP, CBC #### [facility] [address] [place] [address] Block Sealer: Rodrick Jones MD Potassium [Moles/Vol] 4.0 mmol/L Normal 3.7-5.3 [facility] Comment on above: Performed By: #### B MP, CBC #### [facility] [address] [place] [address] Block Sealer: Rodrick Jones MD Sodium [Moles/Vol] 138 mmol/L Normal 135-144 [facility] Comment on above: Performed By: #### B MP, CBC #### [id number] [address] [place] [address] Block Sealer: Rodrick Jones MD Urea nitrogen [Mass/Vol] 43 mg/dL High 8-23 [facility] Comment on above: Performed By: #### B MP, CBC #### [facility] [address] [place], [place] [phone] Block Sealer: Rodrick Jones MD Basic Metabolic Panel w/ Ref artis to MGon 06-29-2022 Anion gap [Moles/Vol] 11 mmol/L 9 - 17 mmol/L [facility] Calcium [Mass/Vol] 9.1 mg/dL 8.6 - 10. 4 mg/dL [facility] Chloride [Moles/Vol] 103 mmol/L 98 - 10 7 mmol/L [facility] CO2 [Moles/Vol] 24 mmol/L 20 - 31 mmol/L [facility] Creatinine [Mass/Vol] 4.38 mg/dL High 0.70 - 1.20 mg/dL [facility] GFR/1.73 sq M.predicted MDRD (S/P/Bld) [Vol rate/Area] 15 mL/min/{1.73_m2} Low - PINF [facility] Glucose [Mass/Vol] 161 mg/dL High 70 - 99 mg/dL [facility] Interpretation and review of laboratory results Abnormal [facility] Potassium [Moles/Vol] 4.0 mmol/L 3.7 - 5.3 mmol/L [facility] Sodium [Moles/Vol] 138 mmol/L 135 - 144 mmol/L [facility] Urea nitrogen [Mass/Vol] 43 mg/dL High 8 - 23 mg/dL [facility] CALCIUM, IONIC (POC)on 06-29 POC Ionized Calcium 1.13 mmol/L Low 1.15 - 1 .33 mmol/L [facility] CBCon 06-29-2022 Erythrocyte distribution width (RBC) [Ratio] 13.4 % Normal 11.8-14.4 [facility] Comment on above: Performed By: #### C RP, CRESCENCIO, CBC, MG #### [address] [address] Block Sealer: Rodrick Jones MD Hematocrit (Bld) [Volume fraction] 35.4 % Low 40.7-50.3 [facility] Comment on above: Performed By: #### C RP, RENP, CBC, MG #### [place] [address] Block Sealer: Rodrick Jones MD Hemoglobin (Bld) [Mass/Vol] 11.4 g/dL Low 13.0-17.0 [facility] Comment on above: Performed By: #### C RP, RENP, CBC, MG #### [address] [address] Block Sealer: Rodrick Jones MD MCH (RBC) [Entitic mass] 30.3 pg Normal 25.2-33.5 [facility] Comment on above: Performed By: #### C RP, RENP, CBC, MG #### [place] [address] Block Sealer: Rodrick Jones MD MCHC (RBC) [Mass/Vol] 32.2 g/dL Normal 28.4-34.8 [facility] Comment on above: Performed By: #### C RP, RENP, CBC, MG #### [place] [address] Block Sealer: Rodrick Jones MD MCV (RBC) [Entitic vol] 94.1 fL Normal 82.6-102.9 [facility] Comment on above: Performed By: #### C RP, RENP, CBC, MG #### [address] [address] Block Sealer: Rodrick Jones MD NRBC Automated 0.0 per 100 WBC Normal 0.0 [facility] Comment on above: Performed By: #### C RP, RENP, CBC, MG #### [facility] [place] [address] Block Sealer: Rodrick Jones MD Platelet mean volume (Bld) [Entitic vol] 10.4 fL Normal 8.1-13.5 [facility] Comment on above: Performed By: #### C RP, RENP, CBC, MG #### [facility] [address] [place] [address] Block Sealer: Rodrick Jones MD Platelets (Bld) [#/Vol] 357 10*3/uL Normal 138-453 [facility] Comment on above: Performed By: #### C RP, RENP, CBC, MG #### [facility] [address] [place] [address] Block Sealer: Rodrick Jones MD RBC (Bld) [#/Vol] 3.76 10*6/uL Low 4.21-5.77 [facility] Comment on above: Performed By: #### C RP, RENP, CBC, MG #### [facility] [address] [place] [address] Block Sealer: Rodrick Jones MD WBC (Bld) [#/Vol] 13.4 10*3/uL High 3.5-11.3 [facility] Comment on above: Performed By: #### C RP, RENP, CBC, MG #### [facility] [address] [place] [address] Block Sealer: Rodrick Jones MD Hematocrit (Bld) [Volume fraction] 35.4 % Low 40.7 - 50.3 % [facility] Hemoglobin (Bld) [Mass/Vol] 11.4 g/dL Low 13.0 - 17.0 g/dL [facility] Interpretation and review of laboratory results Abnormal [facility] MCH (RBC) [Entitic mass] 30.3 pg 25.2 - 33.5 pg [facility] MCHC (RBC) [Mass/Vol] 32.2 g/dL 28.4 - 34.8 g/dL [facility] MCV (RBC) [Entitic vol] 94.1 fL 82.6 - 102.9 fL [facility] NRBC Automated 0.0 0.0 per 100 WBC [facility] Platelet distribution width (Bld) [Ratio] 13.4 % 11.8 - 14.4 % [facility] Platelet mean volume (Bld) [Entitic vol] 10.4 fL 8.1 - 13.5 fL [facility] Platelets (Bld) [#/Vol] 357 10*3/uL [facility] RBC (Bld) [#/Vol] 3.76 10*6/uL Low 4.21 - 5.7 7 m/uL [facility] WBC (Bld) [#/Vol] 13.4 10*3/uL High [facility] CBC with Auto Differentialon 06-29-2022 Absolute Eos # 0.37 [facility] Absolute Immature Granulocyte 0.49 High [facility] Absolute Lymph # 2.09 [facility] Absolute Becker # 1.01 [facility] Basophils (Bld) [#/Vol] 0.10 10*3/uL [facility] Basophils/100 WBC (Bld) 1 % 0 - 2 % [facility] Eosinophils/100 WBC (Bld) 3 % 1 - 4 % [facility] Hematocrit (Bld) [Volume fraction] 35.7 % Low 40.7 - 50.3 % [facility] Hemoglobin (Bld) [Mass/Vol] 11.4 g/dL Low 13.0 - 17.0 g/dL [facility] Immature granulocytes/100 WBC (Bld) 4 % High 0 [facility] Interpretation and review of laboratory results Abnormal [facility] Lymphocytes/100 WBC (Bld) 16 % Low 24 - 43 % [facility] MCH (RBC) [Entitic mass] 30.5 pg 25.2 - 33.5 pg [facility] MCHC (RBC) [Mass/Vol] 31.9 g/dL 28.4 - 34.8 g/dL [facility] MCV (RBC) [Entitic vol] 95.5 fL 82.6 - 102.9 fL [facility] Monocytes/100 WBC (Bld) 8 % 3 - 12 % [facility] NRBC Automated 0.0 0.0 per 100 WBC [facility] Platelet distribution width (Bld) [Ratio] 13.5 % 11.8 - 14.4 % [facility] Platelet mean volume (Bld) [Entitic vol] 9.7 fL 8.1 - 13.5 fL [facility] Platelets (Bld) [#/Vol] 301 10*3/uL [facility] RBC (Bld) [#/Vol] 3.74 10*6/uL Low 4.21 - 5.7 7 m/uL [facility] Seg Neutrophils 68 % High 36 - 65 % [facility] Segs Absolute 8.88 High [facility] WBC (Bld) [#/Vol] 12.9 10*3/uL High [facility] CBC with Diffon 06-29-2022 Abs. Basophil 0.10 k/uL Normal 0.00-0.20 [facility] Comment on above: Performed By: #### B MP, CBC #### [id number] [address] [place] [address] Block Sealer: Rodrick Jones MD Abs.Imm.Granulocyte 0.49 k/uL High 0.00-0.30 [facility] Comment on above: Performed By: #### B MP, CBC #### [facility] [address] [place] [address] Block Sealer: Rodrick Jones MD Abs.Neutrophil (Seg) 8.88 k/uL High 1.50-8.10 [facility] Comment on above: Performed By: #### B MP, CBC #### [facility] [address] [place], [place] [phone] Block Sealer: Rodrick Jones MD Basophils/100 WBC (Bld) 1 % Normal 0-2 [facility] Comment on above: Performed By: #### B MP, CBC #### [address] [address] Block Sealer: Rodrick Jones MD Eosinophils (Bld) [#/Vol] 0.37 10*3/uL Normal 0.00-0.44 [facility] Comment on above: Performed By: #### B MP, CBC #### [address] [address] Block Sealer: Rodrick Jones MD Eosinophils/100 WBC (Bld) 3 % Normal 1-4 [facility] Comment on above: Performed By: #### B MP, CBC #### [address] [address] Block Sealer: Rodrick Jones MD Erythrocyte distribution width (RBC) [Ratio] 13.5 % Normal 11.8-14.4 [facility] Comment on above: Performed By: #### B MP, CBC #### [address] [address] Block Sealer: Rodrick Jones MD Hematocrit (Bld) [Volume fraction] 35.7 % Low 40.7-50.3 [facility] Comment on above: Performed By: #### B MP, CBC #### [address] [address] Block Sealer: Rodrick Jones MD Hemoglobin (Bld) [Mass/Vol] 11.4 g/dL Low 13.0-17.0 [facility] Comment on above: Performed By: #### B MP, CBC #### [facility] [address] [place] [address] Block Sealer: Rodrick Jones MD Immature granulocytes/100 WBC (Bld) 4 % High 0 [facility] Comment on above: Performed By: #### B MP, CBC #### [place] [address] Block Sealer: Rodrick Jones MD Lymphocytes (Bld) [#/Vol] 2.09 10*3/uL Normal 1.10-3.70 [facility] Comment on above: Performed By: #### B MP, CBC #### [place] [address] Block Sealer: Rodrick Jones MD Lymphocytes/100 WBC (Bld) 16 % Low 24-43 [facility] Comment on above: Performed By: #### B MP, CBC #### [place] [address] Block Sealer: Rodrick Jones MD MCH (RBC) [Entitic mass] 30.5 pg Normal 25.2-33.5 [facility] Comment on above: Performed By: #### B MP, CBC #### [place] [address] Block Sealer: Rodrick Jones MD MCHC (RBC) [Mass/Vol] 31.9 g/dL Normal 28.4-34.8 [facility] Comment on above: Performed By: #### B MP, CBC #### [place] [address] Block Sealer: Rodrick Jones MD MCV (RBC) [Entitic vol] 95.5 fL Normal 82.6-102.9 [facility] Comment on above: Performed By: #### B MP, CBC #### [place] [address] Block Sealer: Rodrick Jones MD Monocytes (Bld) [#/Vol] 1.01 10*3/uL Normal 0.10-1.20 [facility] Comment on above: Performed By: #### B MP, CBC #### [address] [address] Block Sealer: Rodrick Jones MD Monocytes/100 WBC (Bld) 8 % Normal 3-12 [facility] Comment on above: Performed By: #### B MP, CBC #### [address] [address] Block Sealer: Rodrick Jones MD Neutrophil (Seg) 68 % High 36-65 [facility] Comment on above: Performed By: #### B MP, CBC #### [address] [address] Block Sealer: Rodrick Jones MD NRBC Automated 0.0 per 100 WBC Normal 0.0 [facility] Comment on above: Performed By: #### B MP, CBC #### [address] [address] Block Sealer: Rodrick Jones MD Platelet mean volume (Bld) [Entitic vol] 9.7 fL Normal 8.1-13.5 [facility] Comment on above: Performed By: #### B MP, CBC #### [address] [address] Block Sealer: Rodrick Jones MD Platelets (Bld) [#/Vol] 301 10*3/uL Normal 138-453 [facility] Comment on above: Performed By: #### B MP, CBC #### [address] [address] Block Sealer: Rodrick Jones MD RBC (Bld) [#/Vol] 3.74 10*6/uL Low 4.21-5.77 [facility] Comment on above: Performed By: #### B MP, CBC #### [address] [address] Block Sealer: Rodrick Jones MD WBC (Bld) [#/Vol] 12.9 10*3/uL High 3.5-11.3 [facility] Comment on above: Performed By: #### B MP, CBC #### [address] [address] Block Sealer: Rodrick Jones MD Creatinine W/GFR Point of Ca reon 06-29-2022 Creatinine [Mass/Vol] 4.68 mg/dL High 0.51 - 1.19 mg/dL [facility] eGFR, POC 14 mL/min/1.73m2 [facility] Differentialon 06-29-2022 Abs. Basophil 0.13 k/uL Normal 0.0-0.2 [facility] Comment on above: Performed By: #### C RP, RENP, CBC, MG #### [facility] [address] [place] [address] Block Sealer: Rodrick Jones MD Abs.Imm.Granulocyte 0.00 k/uL Normal 0.00-0.30 [facility] Comment on above: Performed By: #### C RP, RENP, CBC, MG #### [facility] [address] [place] [address] Block Sealer: Rodrick Jones MD Abs.Neutrophil (Seg) 9.92 k/uL High 1.8-7.7 [facility] Comment on above: Performed By: #### C RP, RENP, CBC, MG #### [facility] [address] [place] [address] Block Sealer: Rodrick Jones MD Basophils/100 WBC (Bld) 1 % Normal 0-2 [facility] Comment on above: Performed By: #### C RP, RENP, CBC, MG #### [facility] [address] [place] [address] Block Sealer: Rodrick Jones MD Eosinophils (Bld) [#/Vol] 0.27 10*3/uL Normal 0.0-0.4 [facility] Comment on above: Performed By: #### C RP, RENP, CBC, MG #### [facility] [address] [place] [address] Block Sealer: Rodrick Jones MD Eosinophils/100 WBC (Bld) 2 % Normal 1-4 [facility] Comment on above: Performed By: #### C RP, RENP, CBC, MG #### [facility] [address] [place] [address] Block Sealer: Rodrick Jones MD Immature granulocytes/100 WBC (Bld) 0 % Normal 0 [facility] Comment on above: Performed By: #### C RP, RENP, CBC, MG #### [facility] [address] [place] [address] Block Sealer: Rodrick Jones MD Lymphocytes (Bld) [#/Vol] 2.14 10*3/uL Normal 1.0-4.8 [facility] Comment on above: Performed By: #### C RP, RENP, CBC, MG #### [facility] [address] [place] [address] Block Sealer: Rodrick Jones MD Lymphocytes/100 WBC (Bld) 16 % Low 24-44 [facility] Comment on above: Performed By: #### C RP, RENP, CBC, MG #### [facility] [address] [place] [address] Block Sealer: Rodrick Jones MD Monocytes (Bld) [#/Vol] 0.94 10*3/uL High 0.1-0.8 [facility] Comment on above: Performed By: #### C RP, RENP, CBC, MG #### [facility] [address] [place] [address] Block Sealer: Rodrick Jones MD Monocytes/100 WBC (Bld) 7 % Normal 1-7 [facility] Comment on above: Performed By: #### C RP, RENP, CBC, MG #### [facility] [address] [place], [place] [phone] Block Sealer: Rodrick Jones MD Morphology Cale (Bld) [Interp] Normal Normal [facility] Comment on above: Performed By: #### C RP, RENP, CBC, MG #### [facility] [address] [place], [place] [phone] Block Sealer: Rodrick Jones MD Neutrophil (Seg) 74 % High 36-66 [facility] Comment on above: Performed By: #### C RP, RENP, CBC, MG #### [facility] [place], [place] [phone] Block Sealer: Rodrick Jones MD Absolute Eos # 0.27 [facility] Absolute Immature Granulocyte 0.00 [facility] Absolute Lymph # 2.14 [facility] Absolute Becker # 0.94 High [facility] Basophils (Bld) [#/Vol] 0.13 10*3/uL [facility] Basophils/100 WBC (Bld) 1 % 0 - 2 % [facility] Eosinophils/100 WBC (Bld) 2 % 1 - 4 % [facility] Immature granulocytes/100 WBC (Bld) 0 % 0 [facility] Interpretation and review of laboratory results Abnormal [facility] Lymphocytes/100 WBC (Bld) 16 % Low 24 - 44 % [facility] Monocytes/100 WBC (Bld) 7 % 1 - 7 % [facility] Morphology Cale (Bld) [Interp] Normal [facility] Seg Neutrophils 74 % High 36 - 66 % [facility] Segs Absolute 9.92 High [facility] ELECTROLYTES PLUSon 06-30-19 23 Anion gap [Moles/Vol] 14 mmol/L 7 - 16 mmol/L [facility] Chloride [Moles/Vol] 101 mmol/L 98 - 10 7 mmol/L [facility] CO2 [Moles/Vol] 26 mmol/L 22 - 30 mmol/L [facility] Potassium [Moles/Vol] 4.0 mmol/L 3.5 - 4.5 mmol/L [facility] Sodium [Moles/Vol] 140 mmol/L 138 - 146 mmol/L [facility] FLUORO FOR SURGICAL PROCEDUR ESon 06-29-2022 FLUORO FOR SURGICAL PROCEDURES Radiology exam is complete. No Radiologist dictation. Please follow up with ordering provider. Final result [facility] Hemoglobin and hematocrit, b loodon 06-29-2022 Hematocrit (Bld) [Volume fraction] 36 % Low 41 - 53 % [facility] Hemoglobin (Bld) [Mass/Vol] 12.2 g/dL Low 13.5 - 17.5 g/dL [facility] No Panel Informationon 06-29 Interpretation and review of laboratory results Abnormal [facility] POC Glucose Fingerstickon Glucose [Mass/Vol] 208 mg/dL High 75 - 110 mg/dL [facility] Interpretation and review of laboratory results Abnormal [facility] Glucose [Mass/Vol] 142 mg/dL High 75 - 110 mg/dL [facility] Interpretation and review of laboratory results Abnormal [facility] Glucose [Mass/Vol] 179 mg/dL High 75 - 110 mg/dL [facility] Interpretation and review of laboratory results Abnormal [facility] Glucose [Mass/Vol] 157 mg/dL High 75 - 110 mg/dL [facility] Interpretation and review of laboratory results Abnormal [facility] Glucose [Mass/Vol] 163 mg/dL High 75 - 110 mg/dL [facility] Interpretation and review of laboratory results Abnormal [facility] Glucose [Mass/Vol] 145 mg/dL High 75 - 110 mg/dL [facility] Interpretation and review of laboratory results Abnormal [facility] POCT Glucoseon 06-29-2022 Glucose [Mass/Vol] 153 mg/dL High 74 - 100 mg/dL [facility] POCT urea (BUN)on 06-29-2022 Urea nitrogen [Mass/Vol] 49 mg/dL High 8 - 26 mg/dL [facility] Basic Metab w/rfx MGon 06-28 Anion gap [Moles/Vol] 14 mmol/L Normal 9-17 [facility] Comment on above: Performed By: #### C RP, RENP, CBC, MG #### [facility] [address] [place] [address] Block Sealer: Rodrick Jones MD Calcium [Mass/Vol] 9.3 mg/dL Normal 8.6-10.4 [facility] Comment on above: Performed By: #### C RP, RENP, CBC, MG #### [facility] [address] [place] [address] Block Sealer: Rodrick Jones MD Chloride [Moles/Vol] 98 mmol/L Normal 98-107 [facility] Comment on above: Performed By: #### C RP, RENP, CBC, MG #### [facility] [address] [place] [address] Block Sealer: Rodrick Jones MD CO2 [Moles/Vol] 24 mmol/L Normal 20-31 [facility] Comment on above: Performed By: #### C RP, RENP, CBC, MG #### [facility] [address] [place] [address] Block Sealer: Rodrick Jones MD Creatinine [Mass/Vol] 4.49 mg/dL High 0.70-1.20 [facility] Comment on above: Performed By: #### C RP, RENP, CBC, MG #### [facility] [address] [place] [address] Block Sealer: Rodrick Jones MD GFR/1.73 sq M.predicted among non-blacks MDRD (S/P/Bld) [Vol rate/Area] 14 mL/min/{1.73_m2} Low >60 [facility] Comment on above: Result Comment: These [...] #### C RP, RENP, CBC, MG #### [facility] [address] [place] [address] Block Sealer: Rodrick Jones MD Glucose [Mass/Vol] 166 mg/dL High 70-99 [facility] Comment on above: Performed By: #### C RP, RENP, CBC, MG #### [facility] [address] [place] [address] Block Sealer: Rodrick Jones MD Potassium [Moles/Vol] 3.9 mmol/L Normal 3.7-5.3 [facility] Comment on above: Performed By: #### C RP, RENP, CBC, MG #### [id number] [address] [place] [address] Block Sealer: Rodrick Jones MD Sodium [Moles/Vol] 136 mmol/L Normal 135-144 [facility] Comment on above: Performed By: #### C RP, RENP, CBC, MG #### [facility] [address] [place] [address] Block Sealer: Rodrick Jones MD Urea nitrogen [Mass/Vol] 42 mg/dL High 8-23 [facility] Comment on above: Performed By: #### C RP, RENP, CBC, MG #### [id number] [address] [place] [address] Block Sealer: Rodrick Jones MD Basic Metabolic Panelon 03-2 Anion gap [Moles/Vol] 15 mmol/L 9 - 17 mmol/L [facility] Calcium [Mass/Vol] 9.1 mg/dL 8.6 - 10. 4 mg/dL [facility] Chloride [Moles/Vol] 97 mmol/L Low 98 - 10 7 mmol/L [facility] CO2 [Moles/Vol] 24 mmol/L 20 - 31 mmol/L [facility] Creatinine [Mass/Vol] 4.44 mg/dL High 0.70 - 1.20 mg/dL [facility] GFR/1.73 sq M.predicted MDRD (S/P/Bld) [Vol rate/Area] 14 mL/min/{1.73_m2} Low - PINF [facility] Glucose [Mass/Vol] 184 mg/dL High 70 - 99 mg/dL [facility] [employer] Interpretation and review of laboratory results Abnormal [facility] Potassium [Moles/Vol] 3.7 mmol/L 3.7 - 5.3 mmol/L [facility] Sodium [Moles/Vol] 136 mmol/L 135 - 144 mmol/L [facility] Urea nitrogen [Mass/Vol] 42 mg/dL High 8 - 23 mg/dL [facility] Basic Metabolic Panel w/ Ref artis to MGon 06-28-2022 Anion gap [Moles/Vol] 14 mmol/L 9 - 17 mmol/L [facility] Calcium [Mass/Vol] 9.3 mg/dL 8.6 - 10. 4 mg/dL [facility] [employer] [facility] Chloride [Moles/Vol] 98 mmol/L 98 - 10 7 mmol/L [facility] CO2 [Moles/Vol] 24 mmol/L 20 - 31 mmol/L [facility] Creatinine [Mass/Vol] 4.49 mg/dL High 0.70 - 1.20 mg/dL [facility] GFR/1.73 sq M.predicted MDRD (S/P/Bld) [Vol rate/Area] 14 mL/min/{1.73_m2} Low - PINF [facility] Glucose [Mass/Vol] 166 mg/dL High 70 - 99 mg/dL [facility] Interpretation and review of laboratory results Abnormal [facility] Potassium [Moles/Vol] 3.9 mmol/L 3.7 - 5.3 mmol/L [facility] Sodium [Moles/Vol] 136 mmol/L 135 - 144 mmol/L [facility] Urea nitrogen [Mass/Vol] 42 mg/dL High 8 - 23 mg/dL [facility] Basic Metabolic Profon 06-28 Potassium [Moles/Vol] 3.7 mmol/L Normal 3.7-5.3 [facility] Comment on above: Performed By: #### C RP, RENP, CBC, MG #### [id number] [address] [place] [address] [id number] Block Sealer: Rodrick Jones MD Anion gap [Moles/Vol] 15 mmol/L Normal 9-17 [facility] Comment on above: Performed By: #### C RP, RENP, CBC, MG #### [id number] [address] [place] [address] [phone] Block Sealer: Rodrick Jones MD Calcium [Mass/Vol] 9.1 mg/dL Normal 8.6-10.4 [facility] Comment on above: Performed By: #### C RP, RENP, CBC, MG #### [id number] [address] [place] [address] [phone] Block Sealer: Rodrick Jones MD Chloride [Moles/Vol] 97 mmol/L Low 98-107 [facility] Comment on above: Performed By: #### C RP, RENP, CBC, MG #### [id number] [address] [place] [address] [id number] Block Sealer: Rodrick Jones MD CO2 [Moles/Vol] 24 mmol/L Normal 20-31 [facility] Comment on above: Performed By: #### C RP, RENP, CBC, MG #### [facility] [facility] [address] [place] [address] Block Sealer: Rodrick Jones MD Creatinine [Mass/Vol] 4.44 mg/dL High 0.70-1.20 [facility] Comment on above: Performed By: #### C RP, RENP, CBC, MG #### [address] [address] Block Sealer: Rodrick Jones MD GFR/1.73 sq M.predicted among non-blacks MDRD (S/P/Bld) [Vol rate/Area] 14 mL/min/{1.73_m2} Low >60 [facility] Comment on above: Result Comment: These [...] #### C RP, RENP, CBC, MG #### [facility] [address] [place] [address] Block Sealer: Rodrick Jones MD Glucose [Mass/Vol] 184 mg/dL High 70-99 [facility] Comment on above: Performed By: #### C RP, RENP, CBC, MG #### [facility] [address] [place] [address] Block Sealer: Rodrick Jones MD Sodium [Moles/Vol] 136 mmol/L Normal 135-144 [facility] Comment on above: Performed By: #### C RP, RENP, CBC, MG #### [facility] [address] [place] [address] Block Sealer: Rodrick Jones MD Urea nitrogen [Mass/Vol] 42 mg/dL High 8-23 [facility] Comment on above: Performed By: #### C RP, RENP, CBC, MG #### [facility] [address] [place] [address] Block Sealer: Rodrick Jones MD CBCon 06-28-2022 Erythrocyte distribution width (RBC) [Ratio] 13.5 % Normal 11.8-14.4 [facility] Comment on above: Performed By: #### C RP, RENP, CBC, MG #### [facility] [address] [place] [address] Block Sealer: Rodrick Jones MD Hematocrit (Bld) [Volume fraction] 37.1 % Low 40.7-50.3 [facility] Comment on above: Performed By: #### C RP, RENP, CBC, MG #### [facility] [address] [place] [address] Block Sealer: Rodrick Jones MD Hemoglobin (Bld) [Mass/Vol] 11.7 g/dL Low 13.0-17.0 [facility] Comment on above: Performed By: #### C RP, RENP, CBC, MG #### [facility] [address] [place] [address] Block Sealer: Rodrick Jones MD MCH (RBC) [Entitic mass] 30.7 pg Normal 25.2-33.5 [facility] Comment on above: Performed By: #### C RP, RENP, CBC, MG #### [facility] [address] [place] [address] Block Sealer: Rodrick Jones MD MCHC (RBC) [Mass/Vol] 31.5 g/dL Normal 28.4-34.8 [facility] Comment on above: Performed By: #### C RP, RENP, CBC, MG #### [facility] [address] [place] [address] Block Sealer: Rodrick Jones MD MCV (RBC) [Entitic vol] 97.4 fL Normal 82.6-102.9 [facility] Comment on above: Performed By: #### C RP, RENP, CBC, MG #### [address] [address] Block Sealer: Rodrick Jones MD NRBC Automated 0.0 per 100 WBC Normal 0.0 [facility] Comment on above: Performed By: #### C RP, RENP, CBC, MG #### [address] [address] Block Sealer: Rodrick Jones MD Platelet mean volume (Bld) [Entitic vol] 9.9 fL Normal 8.1-13.5 [facility] Comment on above: Performed By: #### C RP, RENP, CBC, MG #### [address] [address] Block Sealer: Rodrick Jones MD Platelets (Bld) [#/Vol] 301 10*3/uL Normal 138-453 [facility] Comment on above: Performed By: #### C RP, RENP, CBC, MG #### [address] [address] Block Sealer: Rodrick Jones MD RBC (Bld) [#/Vol] 3.81 10*6/uL Low 4.21-5.77 [facility] Comment on above: Performed By: #### C RP, RENP, CBC, MG #### [address] [address] Block Sealer: Rodrick Jones MD WBC (Bld) [#/Vol] 13.5 10*3/uL High 3.5-11.3 [facility] Comment on above: Performed By: #### C RP, RENP, CBC, MG #### [address] [address] Block Sealer: Rodrick Jones MD Hematocrit (Bld) [Volume fraction] 37.1 % Low 40.7 - 50.3 % [facility] Hemoglobin (Bld) [Mass/Vol] 11.7 g/dL Low 13.0 - 17.0 g/dL [facility] [employer] Interpretation and review of laboratory results Abnormal [facility] MCH (RBC) [Entitic mass] 30.7 pg 25.2 - 33.5 pg [facility] MCHC (RBC) [Mass/Vol] 31.5 g/dL 28.4 - 34.8 g/dL [facility] MCV (RBC) [Entitic vol] 97.4 fL 82.6 - 102.9 fL [facility] [employer] NRBC Automated 0.0 0.0 per 100 WBC [facility] Platelet distribution width (Bld) [Ratio] 13.5 % 11.8 - 14.4 % [facility] Platelet mean volume (Bld) [Entitic vol] 9.9 fL 8.1 - 13.5 fL [facility] Platelets (Bld) [#/Vol] 301 10*3/uL [facility] RBC (Bld) [#/Vol] 3.81 10*6/uL Low 4.21 - 5.7 7 m/uL [facility] WBC (Bld) [#/Vol] 13.5 10*3/uL High [facility] [employer] IR TUNNELED CVC PLACE WO SQ PORT/PUMP > 5 YEARSon 06-28-2022 [facility] RIS CONSOLIDATED [facility] RIS CONSOLIDATED [facility] Work Phone: [facility] [employer] Work Phone: Radiology Study observation (narrative) [facility] [employer] Work Phone: POC Glucose [employer] Glucose [Mass/Vol] 181 mg/dL High 75 - 110 mg/dL [facility] [employer] Interpretation and review of laboratory results Abnormal [facility] Glucose [Mass/Vol] 197 mg/dL High 75 - 110 mg/dL [facility] Interpretation and review of laboratory results Abnormal [facility] Glucose [Mass/Vol] 180 mg/dL High 75 - 110 mg/dL [facility] Interpretation and review of laboratory results Abnormal [facility] Glucose [Mass/Vol] 137 mg/dL High 75 - 110 mg/dL [facility] Interpretation and review of laboratory results Abnormal [facility] PTon 06-28-2022 INR Coag (PPP) [Relative time] 1.0 {INR} Normal [facility] Comment on above: Result Comment: Therapeutic Range: Moderate Anticoagulant Intensity: INR = 2.0-3.0 High Anticoagulant Intensity: INR = 2.5-3.5 Performed By: #### B CECY, CBC #### [id number] [address] [place], [place] [id number] Block Sealer: Rodrick Jones MD PT Coag (PPP) [Time] 11.1 s Normal 9.1-12.3 [facility] Comment on above: Performed By: #### B CECY, CBC #### [employer] [address] [place] [address] Block Sealer: Rodrick Jones MD Protime-INRon 06-28-2022 INR Coag (PPP) [Relative time] 1.0 {INR} [facility] PT Coag (PPP) [Time] 11.1 s [facility] Basic Metab w/rfx MGon 06-27 Anion gap [Moles/Vol] 15 mmol/L Normal 9-17 [facility] Comment on above: Performed By: #### B MP, CBC #### [employer] [address] [place], [place] [id number] Block Sealer: Rodrick Jones MD Calcium [Mass/Vol] 9.2 mg/dL Normal 8.6-10.4 [facility] Comment on above: Performed By: #### B MP, CBC #### [address] [address] Block Sealer: Rodrick Jones MD Chloride [Moles/Vol] 100 mmol/L Normal 98-107 [facility] Comment on above: Performed By: #### B MP, CBC #### [address] [address] Block Sealer: Rodrick Jones MD CO2 [Moles/Vol] 25 mmol/L Normal 20-31 [facility] Comment on above: Performed By: #### B MP, CBC #### [address] [address] Block Sealer: Rodrick Jones MD Creatinine [Mass/Vol] 4.39 mg/dL High 0.70-1.20 [facility] Comment on above: Performed By: #### B MP, CBC #### [address] [address] Block Sealer: Rodrick Jones MD GFR/1.73 sq M.predicted among non-blacks MDRD (S/P/Bld) [Vol rate/Area] 15 mL/min/{1.73_m2} Low >60 [facility] Comment on above: Result Comment: These [...] Performed By: #### B MP, CBC #### [address] [address] Block Sealer: Rodrick Jones MD Glucose [Mass/Vol] 120 mg/dL High 70-99 [facility] Comment on above: Performed By: #### B MP, CBC #### [address] [id number] Block Sealer: Rodrick Jones MD Potassium [Moles/Vol] 3.7 mmol/L Normal 3.7-5.3 [facility] Comment on above: Performed By: #### B MP, CBC #### [facility] [address] [place] [address] Block Sealer: Rodrick Jones MD Sodium [Moles/Vol] 140 mmol/L Normal 135-144 [facility] Comment on above: Performed By: #### B MP, CBC #### [facility] [address] [place] [address] Block Sealer: Rodrick Jones MD Urea nitrogen [Mass/Vol] 35 mg/dL High 8-23 [facility] Comment on above: Performed By: #### B MP, CBC #### [facility] [address] [place] [address] Block Sealer: Rodrick Jones MD Basic Metabolic Panel w/ Ref artis to MGon 06-27-2022 Anion gap [Moles/Vol] 15 mmol/L 9 - 17 mmol/L [facility] Calcium [Mass/Vol] 9.2 mg/dL 8.6 - 10. 4 mg/dL [facility] Chloride [Moles/Vol] 100 mmol/L 98 - 10 7 mmol/L [facility] CO2 [Moles/Vol] 25 mmol/L 20 - 31 mmol/L [facility] Creatinine [Mass/Vol] 4.39 mg/dL High 0.70 - 1.20 mg/dL [facility] GFR/1.73 sq M.predicted MDRD (S/P/Bld) [Vol rate/Area] 15 mL/min/{1.73_m2} Low - PINF [facility] Glucose [Mass/Vol] 120 mg/dL High 70 - 99 mg/dL [facility] Interpretation and review of laboratory results Abnormal [facility] Potassium [Moles/Vol] 3.7 mmol/L 3.7 - 5.3 mmol/L [facility] Sodium [Moles/Vol] 140 mmol/L 135 - 144 mmol/L [facility] Urea nitrogen [Mass/Vol] 35 mg/dL High 8 - 23 mg/dL [facility] CBC with Auto Differentialon 06-27-2022 Absolute Eos # 0.48 High [facility] Absolute Immature Granulocyte 0.47 High [facility] Absolute Lymph # 2.72 [facility] Absolute Becker # 0.95 [facility] Basophils (Bld) [#/Vol] 0.15 10*3/uL [facility] Basophils/100 WBC (Bld) 1 % 0 - 2 % [facility] Eosinophils/100 WBC (Bld) 3 % 1 - 4 % [facility] Hematocrit (Bld) [Volume fraction] 34.5 % Low 40.7 - 50.3 % [facility] Hemoglobin (Bld) [Mass/Vol] 11.9 g/dL Low 13.0 - 17.0 g/dL [facility] Immature granulocytes/100 WBC (Bld) 3 % High 0 [facility] Interpretation and review of laboratory results Abnormal [facility] Lymphocytes/100 WBC (Bld) 19 % Low 24 - 43 % [facility] MCH (RBC) [Entitic mass] 33.3 pg 25.2 - 33.5 pg [facility] MCHC (RBC) [Mass/Vol] 34.5 g/dL 28.4 - 34.8 g/dL [facility] MCV (RBC) [Entitic vol] 96.6 fL 82.6 - 102.9 fL [facility] Monocytes/100 WBC (Bld) 7 % 3 - 12 % [facility] NRBC Automated 0.0 0.0 per 100 WBC [facility] Platelet distribution width (Bld) [Ratio] 14.1 % 11.8 - 14.4 % [facility] Platelet mean volume (Bld) [Entitic vol] 11.9 fL 8.1 - 13.5 fL [facility] Platelets (Bld) [#/Vol] 487 10*3/uL High [facility] RBC (Bld) [#/Vol] 3.57 10*6/uL Low 4.21 - 5.7 7 m/uL [facility] Seg Neutrophils 66 % High 36 - 65 % [facility] Segs Absolute 9.37 High [facility] WBC (Bld) [#/Vol] 14.1 10*3/uL High [facility] CBC with Diffon 06-27-2022 Abs. Basophil 0.15 k/uL Normal 0.00-0.20 [facility] Comment on above: Performed By: #### B MP, CBC #### [address] [address] Block Sealer: Rodrick Jones MD Abs.Imm.Granulocyte 0.47 k/uL High 0.00-0.30 [facility] Comment on above: Performed By: #### B MP, CBC #### [facility] [address] [place] [address] Block Sealer: Rodrick Jones MD Abs.Neutrophil (Seg) 9.37 k/uL High 1.50-8.10 [facility] Comment on above: Performed By: #### B MP, CBC #### [facility] [address] [place] [address] Block Sealer: Rodrick Jones MD Basophils/100 WBC (Bld) 1 % Normal 0-2 [facility] Comment on above: Performed By: #### B MP, CBC #### [facility] [address] [place] [address] Block Sealer: Rodrick Jones MD Eosinophils (Bld) [#/Vol] 0.48 10*3/uL High 0.00-0.44 [facility] Comment on above: Performed By: #### B MP, CBC #### [facility] [address] [place] [address] Block Sealer: Rodrick Jones MD Eosinophils/100 WBC (Bld) 3 % Normal 1-4 [facility] Comment on above: Performed By: #### B MP, CBC #### [address] [address] Block Sealer: Rodrick Jones MD Erythrocyte distribution width (RBC) [Ratio] 14.1 % Normal 11.8-14.4 [facility] Comment on above: Performed By: #### B MP, CBC #### [facility] [address] [place] [address] Block Sealer: Rodrick Jones MD Hematocrit (Bld) [Volume fraction] 34.5 % Low 40.7-50.3 [facility] Comment on above: Performed By: #### B MP, CBC #### [address] [address] Block Sealer: Rodrick Jones MD Hemoglobin (Bld) [Mass/Vol] 11.9 g/dL Low 13.0-17.0 [facility] Comment on above: Performed By: #### B MP, CBC #### [address] [address] Block Sealer: Rodrick Jones MD Immature granulocytes/100 WBC (Bld) 3 % High 0 [facility] Comment on above: Performed By: #### B MP, CBC #### [address] [address] Block Sealer: Rodrick Jones MD Lymphocytes (Bld) [#/Vol] 2.72 10*3/uL Normal 1.10-3.70 [facility] Comment on above: Performed By: #### B MP, CBC #### [address] [address] Block Sealer: Rodrick Jones MD Lymphocytes/100 WBC (Bld) 19 % Low 24-43 [facility] Comment on above: Performed By: #### B MP, CBC #### [address] [address] Block Sealer: Rodrick Jones MD MCH (RBC) [Entitic mass] 33.3 pg Normal 25.2-33.5 [facility] Comment on above: Performed By: #### B MP, CBC #### [address] [address] Block Sealer: Rodrick Jonse MD MCHC (RBC) [Mass/Vol] 34.5 g/dL Normal 28.4-34.8 [facility] Comment on above: Performed By: #### B MP, CBC #### [address] [address] Block Sealer: Rodrick Jones MD MCV (RBC) [Entitic vol] 96.6 fL Normal 82.6-102.9 [facility] Comment on above: Performed By: #### B MP, CBC #### [address] [address] Block Sealer: Rodrick Jones MD Monocytes (Bld) [#/Vol] 0.95 10*3/uL Normal 0.10-1.20 [facility] Comment on above: Performed By: #### B MP, CBC #### [address] [address] Block Sealer: Rodrick Jones MD Monocytes/100 WBC (Bld) 7 % Normal 3-12 [facility] Comment on above: Performed By: #### B MP, CBC #### [address] [address] Block Sealer: Rodrick Jones MD Neutrophil (Seg) 66 % High 36-65 [facility] Comment on above: Performed By: #### B MP, CBC #### [address] [address] Block Sealer: Rodrick Jones MD NRBC Automated 0.0 per 100 WBC Normal 0.0 [facility] Comment on above: Performed By: #### B MP, CBC #### [facility] [place] [address] Block Sealer: Rodrick Jones MD Platelet mean volume (Bld) [Entitic vol] 11.9 fL Normal 8.1-13.5 [facility] Comment on above: Performed By: #### B MP, CBC #### [facility] [place] [address] Block Sealer: Rodrick Jones MD Platelets (Bld) [#/Vol] 487 10*3/uL High 138-453 [facility] Comment on above: Performed By: #### B MP, CBC #### [facility] [address] [place] [address] Block Sealer: Rodrick Jones MD RBC (Bld) [#/Vol] 3.57 10*6/uL Low 4.21-5.77 [facility] Comment on above: Performed By: #### B MP, CBC #### [facility] [place] [address] Block Sealer: Rodrick Jones MD WBC (Bld) [#/Vol] 14.1 10*3/uL High 3.5-11.3 [facility] Comment on above: Performed By: #### B MP, CBC #### [facility] [address] [place] [address] Block Sealer: Rodrick Jones MD POC Glucose Fingerstickon Glucose [Mass/Vol] 167 mg/dL High 75 - 110 mg/dL [facility] Interpretation and review of laboratory results Abnormal [facility] Glucose [Mass/Vol] 171 mg/dL High 75 - 110 mg/dL [facility] Interpretation and review of laboratory results Abnormal [facility] Glucose [Mass/Vol] 196 mg/dL High 75 - 110 mg/dL [facility] Interpretation and review of laboratory results Abnormal [facility] Glucose [Mass/Vol] 117 mg/dL High 75 - 110 mg/dL [facility] Interpretation and review of laboratory results Abnormal [facility] Arterial Blood Gas, POCon Colton Test Positive [facility] FIO2 30.0 [facility] HCO3 (Bld) [Moles/Vol] 27.8 mmol/L 21.0 - 28.0 mmol/L [facility] Interpretation and review of laboratory results Abnormal [facility] Mode CPAP/PS [facility] O2 Device/Flow/% CPAP [facility] Oxygen saturation in Blood 96 % 94.0 - 98.0 % [facility] POC pCO2 42.6 [facility] POC pH 7.423 7.350 - 7.450 [facility] POC PO2 78.7 Low [facility] Positive Base Excess, Art 3 0.0 - 3.0 [facility] Sample Site Left Radial Artery [facility] Basic Metab w/rfx MGon 06-26 Anion gap [Moles/Vol] 15 mmol/L Normal 9-17 [facility] Comment on above: Performed By: #### B CECY, CBC #### [id number] [address] [place] [address] Block Sealer: Rodrick Jones MD Calcium [Mass/Vol] 9.0 mg/dL Normal 8.6-10.4 [facility] Comment on above: Performed By: #### B MP, CBC #### [facility] [address] [place], [place] [id number] Block Sealer: Rodrick Jones MD Chloride [Moles/Vol] 100 mmol/L Normal 98-107 [facility] Comment on above: Performed By: #### B MP, CBC #### [facility] [address] [place] [address] Block Sealer: Rodrick Jones MD CO2 [Moles/Vol] 23 mmol/L Normal 20-31 [facility] Comment on above: Performed By: #### B MP, CBC #### [address] [address] Block Sealer: Rodrick Jones MD Creatinine [Mass/Vol] 3.79 mg/dL High 0.70-1.20 [facility] Comment on above: Performed By: #### B CECY, CBC #### [facility] [address] [place] [address] Block Sealer: Rodrick Jones MD GFR/1.73 sq M.predicted among non-blacks MDRD (S/P/Bld) [Vol rate/Area] 17 mL/min/{1.73_m2} Low >60 [facility] Comment on above: Result Comment: These [...] Performed By: #### B CECY, CBC #### [facility] [address] [place] [address] Block Sealer: Rodrick Jones MD Glucose [Mass/Vol] 130 mg/dL High 70-99 [facility] Comment on above: Performed By: #### B MP, CBC #### [facility] [address] [place] [address] Block Sealer: Rodrick Jones MD Potassium [Moles/Vol] 3.6 mmol/L Low 3.7-5.3 [facility] Comment on above: Performed By: #### B MP, CBC #### [facility] [address] [place], [place] [id number] Block Sealer: Rodrick Jones MD Sodium [Moles/Vol] 138 mmol/L Normal 135-144 [facility] Comment on above: Performed By: #### B MP, CBC #### [facility] [address] [place], [place] [id number] Block Sealer: Rodrick Jones MD Urea nitrogen [Mass/Vol] 31 mg/dL High 8-23 [facility] Comment on above: Performed By: #### B MP, CBC #### [facility] [address] [place], [place] [id number] Block Sealer: Rodrick Jones MD Basic Metabolic Panel w/ Ref artis to MGon 06-26-2022 Anion gap [Moles/Vol] 15 mmol/L 9 - 17 mmol/L [facility] Calcium [Mass/Vol] 9.0 mg/dL 8.6 - 10. 4 mg/dL [facility] Chloride [Moles/Vol] 100 mmol/L 98 - 10 7 mmol/L [facility] CO2 [Moles/Vol] 23 mmol/L 20 - 31 mmol/L [facility] Creatinine [Mass/Vol] 3.79 mg/dL High 0.70 - 1.20 mg/dL [facility] GFR/1.73 sq M.predicted MDRD (S/P/Bld) [Vol rate/Area] 17 mL/min/{1.73_m2} Low - PINF [facility] Glucose [Mass/Vol] 130 mg/dL High 70 - 99 mg/dL [facility] Interpretation and review of laboratory results Abnormal [facility] Potassium [Moles/Vol] 3.6 mmol/L Low 3.7 - 5.3 mmol/L [facility] Sodium [Moles/Vol] 138 mmol/L 135 - 144 mmol/L [facility] Urea nitrogen [Mass/Vol] 31 mg/dL High 8 - 23 mg/dL [facility] Erythrocyte distribution width (RBC) [Ratio] 13.3 % Normal 11.8-14.4 [facility] Comment on above: Performed By: #### B MP, CBC #### [address] [address] Block Sealer: Rodrick Jones MD Hematocrit (Bld) [Volume fraction] 37.5 % Low 40.7-50.3 [facility] Comment on above: Performed By: #### B MP, CBC #### [facility] [address] [place] [address] Block Sealer: Rodrick Jones MD Hemoglobin (Bld) [Mass/Vol] 12.1 g/dL Low 13.0-17.0 [facility] Comment on above: Performed By: #### B MP, CBC #### [address] [address] Block Sealer: Rodrick Jones MD MCH (RBC) [Entitic mass] 30.8 pg Normal 25.2-33.5 [facility] Comment on above: Performed By: #### B MP, CBC #### [address] [address] Block Sealer: Rodrick Jones MD MCHC (RBC) [Mass/Vol] 32.3 g/dL Normal 28.4-34.8 [facility] Comment on above: Performed By: #### B MP, CBC #### [facility] [address] [place] [address] Block Sealer: Rodrick Jones MD MCV (RBC) [Entitic vol] 95.4 fL Normal 82.6-102.9 [facility] Comment on above: Performed By: #### B MP, CBC #### [facility] [address] [place] [address] Block Sealer: Rodrick Jones MD NRBC Automated 0.0 per 100 WBC Normal 0.0 [facility] Comment on above: Performed By: #### B MP, CBC #### [address] [address] Block Sealer: Rodrick Jones MD Platelet mean volume (Bld) [Entitic vol] 10.0 fL Normal 8.1-13.5 [facility] Comment on above: Performed By: #### B MP, CBC #### [address] [address] Block Sealer: Rodrick Jones MD Platelets (Bld) [#/Vol] 299 10*3/uL Normal 138-453 [facility] Comment on above: Performed By: #### B MP, CBC #### [address] [address] Block Sealer: Rodrick Jones MD RBC (Bld) [#/Vol] 3.93 10*6/uL Low 4.21-5.77 [facility] Comment on above: Performed By: #### B MP, CBC #### [address] [address] Block Sealer: Rodrick Jones MD WBC (Bld) [#/Vol] 13.7 10*3/uL High 3.5-11.3 [facility] Comment on above: Performed By: #### B MP, CBC #### [address] [address] Block Sealer: Rodrick Jones MD Hematocrit (Bld) [Volume fraction] 37.5 % Low 40.7 - 50.3 % [facility] Hemoglobin (Bld) [Mass/Vol] 12.1 g/dL Low 13.0 - 17.0 g/dL [facility] Interpretation and review of laboratory results Abnormal [facility] MCH (RBC) [Entitic mass] 30.8 pg 25.2 - 33.5 pg [facility] MCHC (RBC) [Mass/Vol] 32.3 g/dL 28.4 - 34.8 g/dL [facility] MCV (RBC) [Entitic vol] 95.4 fL 82.6 - 102.9 fL [facility] NRBC Automated 0.0 0.0 per 100 WBC [facility] Platelet distribution width (Bld) [Ratio] 13.3 % 11.8 - 14.4 % [facility] Platelet mean volume (Bld) [Entitic vol] 10.0 fL 8.1 - 13.5 fL [facility] Platelets (Bld) [#/Vol] 299 10*3/uL [facility] RBC (Bld) [#/Vol] 3.93 10*6/uL Low 4.21 - 5.7 7 m/uL [facility] WBC (Bld) [#/Vol] 13.7 10*3/uL High [facility] CT HEAD WO CONTRASTon 2022 CT HEAD [...] Justin Villanueva DO 06/26/22 Final result Normal [facility] RIS CONSOLIDATED PN RIS CONSOLIDATED [facility] Work Phone: Radiology Study observation (narrative) [email or web address] Work Phone: CT HEAD WO CONTRASTOrdered B y: Justin Villanueva on 06-26-2022 [email or web address] Work Phone: Magnesiumon 06-26-2022 Magnesium [Mass/Vol] 2.0 mg/dL Normal 1.6-2.6 [facility] Comment on above: Performed By: #### B MP, CBC #### [facility] [address] [id number] Block Sealer: Rodrick Jones MD Magnesium [Mass/Vol] 2.0 mg/dL 1.6 - 2 .6 mg/dL [facility] No Panel Informationon 06-26 [facility] POC Glucose Fingerstickon Glucose [Mass/Vol] 158 mg/dL High 75 - 110 mg/dL [facility] Interpretation and review of laboratory results Abnormal [facility] Glucose [Mass/Vol] 140 mg/dL High 75 - 110 mg/dL [facility] Interpretation and review of laboratory results Abnormal [facility] QobliQ Group [facility]Q Group Glucose [Mass/Vol] 134 mg/dL High 75 - 110 mg/dL [facility] [employer] Group Interpretation and review of laboratory results Abnormal [facility] Glucose [Mass/Vol] 152 mg/dL High 75 - 110 mg/dL [facility] Interpretation and review of laboratory results Abnormal [facility] Glucose [Mass/Vol] 122 mg/dL High 75 - 110 mg/dL [facility] Interpretation and review of laboratory results Abnormal [facility] XR CHEST PORTABLEon 06-27-19 XR CHEST PORTABLE [...] Ankush Palomino MD 06/26/22 Final result Normal [facility]PN RIS CONSOLIDATED MHPN RIS CONSOLIDATED [facility] Phone: Radiology Study observation (narrative) [facility] Phone: XR CHEST PORTABLEOrdered By: Ankush Palomino on 06-26-2022 [facility] Phone: Basic Metab w/rfx MGon 06-25 Anion gap [Moles/Vol] 15 mmol/L Normal 9-17 [facility] Comment on above: Performed By: #### B MP, CBC #### [facility] [address] [place] [address] Block Sealer: Rodrick Jones MD Calcium [Mass/Vol] 8.9 mg/dL Normal 8.6-10.4 [facility] Comment on above: Performed By: #### B MP, CBC #### [facility] [address] [place] [address] Block Sealer: Rodrick Jones MD Chloride [Moles/Vol] 101 mmol/L Normal 98-107 [facility] Comment on above: Performed By: #### B MP, CBC #### [facility] [address] [place] [address] Block Sealer: Rodrick Jones MD CO2 [Moles/Vol] 23 mmol/L Normal 20-31 [facility] Comment on above: Performed By: #### B MP, CBC #### [facility] [address] [place] [address]67 Block Sealer: Rodrick Jones MD Creatinine [Mass/Vol] 4.65 mg/dL High 0.70-1.20 [facility] Comment on above: Performed By: #### B MP, CBC #### [facility] [address] [place] [address]87 Block Sealer: Rodrick Jones MD GFR/1.73 sq M.predicted among non-blacks MDRD (S/P/Bld) [Vol rate/Area] 14 mL/min/{1.73_m2} Low >60 [facility] Comment on above: Result Comment: These [...] #### B CECY, CBC #### [facility] [address] [place] [address]65 Block Sealer: Rodrick Jones MD Glucose [Mass/Vol] 205 mg/dL High 70-99 [facility] Comment on above: Performed By: #### B MP, CBC #### [facility] [address] [place] [address] 20694 Block Sealer: Rodrick Jones MD Potassium [Moles/Vol] 3.7 mmol/L Normal 3.7-5.3 [facility] Comment on above: Performed By: #### B CECY, CBC #### [facility] [address] [place] [address] Block Sealer: Rodrick Jones MD Sodium [Moles/Vol] 139 mmol/L Normal 135-144 [facility] Comment on above: Performed By: #### B MP, CBC #### [facility] [address] [place] [address]26 Block Sealer: Rodrick Jones MD Urea nitrogen [Mass/Vol] 41 mg/dL High 8-23 [facility] Comment on above: Performed By: #### B MP, CBC #### [facility] [address] [place] [address] Block Sealer: Rodrick Jones MD Anion gap [Moles/Vol] 15 mmol/L Normal 9-17 [facility] Comment on above: Performed By: #### B MP, CBC #### [facility] [address] [place] [address] Block Sealer: Rodrick Jones MD Chloride [Moles/Vol] 99 mmol/L Normal 98-107 [facility] Comment on above: Performed By: #### B MP, CBC #### [facility] [address] [place] [address] Block Sealer: Rodrick Jones MD Potassium [Moles/Vol] 3.8 mmol/L Normal 3.7-5.3 [facility] Comment on above: Performed By: #### B MP, CBC #### [facility] [address] [place] [address] 112[address] Block Sealer: Rodrick Jones MD Sodium [Moles/Vol] 137 mmol/L Normal 135-144 [facility] Comment on above: Performed By: #### B MP, CBC #### [facility] [address] [place] [address] Block Sealer: Rodrick Jones MD Basic Metabolic Panel w/ Ref artis to MGon 06-25-2022 Anion gap [Moles/Vol] 15 mmol/L 9 - 17 mmol/L [facility] Calcium [Mass/Vol] 8.9 mg/dL 8.6 - 10. 4 mg/dL [facility] Chloride [Moles/Vol] 101 mmol/L 98 - 10 7 mmol/L [facility] CO2 [Moles/Vol] 23 mmol/L 20 - 31 mmol/L [facility] Creatinine [Mass/Vol] 4.65 mg/dL High 0.70 - 1.20 mg/dL [facility] GFR/1.73 sq M.predicted MDRD (S/P/Bld) [Vol rate/Area] 14 mL/min/{1.73_m2} Low - PINF [facility] Glucose [Mass/Vol] 205 mg/dL High 70 - 99 mg/dL [facility] Interpretation and review of laboratory results Abnormal [facility] Potassium [Moles/Vol] 3.7 mmol/L 3.7 - 5.3 mmol/L [facility] Sodium [Moles/Vol] 139 mmol/L 135 - 144 mmol/L [facility] Urea nitrogen [Mass/Vol] 41 mg/dL High 8 - 23 mg/dL [facility] CBCon 06-25-2022 Erythrocyte distribution width (RBC) [Ratio] 13.6 % Normal 11.8-14.4 [facility] Comment on above: Performed By: #### B MP, CBC #### [facility] [address] [place] [address] Block Sealer: Rodrick Jones MD Hematocrit (Bld) [Volume fraction] 36.9 % Low 40.7-50.3 [facility] Comment on above: Performed By: #### B MP, CBC #### [facility] [address] [place] [address] Block Sealer: Rodrick Jones MD Hemoglobin (Bld) [Mass/Vol] 12.0 g/dL Low 13.0-17.0 [facility] Comment on above: Performed By: #### B MP, CBC #### [facility] [address] [place] [address] Block Sealer: Rodrick Jones MD MCH (RBC) [Entitic mass] 31.0 pg Normal 25.2-33.5 [facility] Comment on above: Performed By: #### B MP, CBC #### [facility] [address] [place] [address]402 Block Sealer: Rodrick Jones MD MCHC (RBC) [Mass/Vol] 32.5 g/dL Normal 28.4-34.8 [facility] Comment on above: Performed By: #### B MP, CBC #### [address] [address] Block Sealer: Rodrick Jones MD MCV (RBC) [Entitic vol] 95.3 fL Normal 82.6-102.9 [facility] Comment on above: Performed By: #### B MP, CBC #### [address] [address] Block Sealer: Rodrick Jones MD NRBC Automated 0.0 per 100 WBC Normal 0.0 [facility] Comment on above: Performed By: #### B MP, CBC #### [address] [address] Block Sealer: Rodrick Jones MD Platelet mean volume (Bld) [Entitic vol] 10.0 fL Normal 8.1-13.5 [facility] Comment on above: Performed By: #### B MP, CBC #### [address] [address] Block Sealer: Rodrick Jones MD Platelets (Bld) [#/Vol] 283 10*3/uL Normal 138-453 [facility] Comment on above: Performed By: #### B MP, CBC #### [address] [address] Block Sealer: Rodrick Jones MD RBC (Bld) [#/Vol] 3.87 10*6/uL Low 4.21-5.77 [facility] Comment on above: Performed By: #### B MP, CBC #### [address] [address] Block Sealer: Rodrick Jones MD WBC (Bld) [#/Vol] 10.9 10*3/uL Normal 3.5-11.3 [facility] Comment on above: Performed By: #### B MP, CBC #### [id number] [address] [place] [address] Block Sealer: Rodrick Jones MD Hematocrit (Bld) [Volume fraction] 36.9 % Low 40.7 - 50.3 % [facility] Hemoglobin (Bld) [Mass/Vol] 12.0 g/dL Low 13.0 - 17.0 g/dL [facility] Interpretation and review of laboratory results Abnormal [facility] MCH (RBC) [Entitic mass] 31.0 pg 25.2 - 33.5 pg [facility] MCHC (RBC) [Mass/Vol] 32.5 g/dL 28.4 - 34.8 g/dL [facility] MCV (RBC) [Entitic vol] 95.3 fL 82.6 - 102.9 fL [facility] NRBC Automated 0.0 0.0 per 100 WBC [facility] Platelet distribution width (Bld) [Ratio] 13.6 % 11.8 - 14.4 % [facility] Platelet mean volume (Bld) [Entitic vol] 10.0 fL 8.1 - 13.5 fL [facility] Platelets (Bld) [#/Vol] 283 10*3/uL [facility] RBC (Bld) [#/Vol] 3.87 10*6/uL Low 4.21 - 5.7 7 m/uL [facility] WBC (Bld) [#/Vol] 10.9 10*3/uL [facility] Cult,Bloodon 06-25-2022 Cult,Blood Specimen Description .BLOOD Special Requests RAC 10ML Culture NO GROWTH 5 DAYS Report Status FINAL 06/25/2022 Normal [facility] Comment on above: Performed By: #### C RP, RENP, CBC, MG #### [id number] [address] [place] [address] Block Sealer: Rodrick Jnoes MD Cult,Blood Specimen Description .BLOOD Special Requests LFA 10ML Culture NO GROWTH 5 DAYS Report Status FINAL 06/25/2022 Normal [facility] Comment on above: Performed By: #### B MP, CBC #### [facility] [address] [place], [place] [phone] Block Sealer: Rodrick Jones MD Culture, Blood 1on 3 Service comment (Unsp spec) [Interp] LFA 10ML [facility] Service comment (Unsp spec) [Interp] RAC 10ML [facility] Laboratoryon 06-25-2022 Microorganism identified Cx Nom (Unsp spec) NO GROWTH 5 DAYS [facility] Magnesiumon 06-25-2022 Magnesium [Mass/Vol] 1.9 mg/dL Normal 1.6-2.6 [facility] Comment on above: Performed By: #### B MP, CBC #### [facility] [address] [place], [place] [phone] Block Sealer: Rodrick Jones MD Magnesium [Mass/Vol] 1.9 mg/dL 1.6 - 2 .6 mg/dL [facility] No Panel Informationon 06-25 [facility] Specimen Description .BLOOD [facility] POC Glucose Fingerstickon Glucose [Mass/Vol] 173 mg/dL High 75 - 110 mg/dL [facility] Interpretation and review of laboratory results Abnormal [facility] Glucose [Mass/Vol] 207 mg/dL High 75 - 110 mg/dL [facility] Interpretation and review of laboratory results Abnormal [facility] Glucose [Mass/Vol] 161 mg/dL High 75 - 110 mg/dL [facility] Interpretation and review of laboratory results Abnormal [facility] Glucose [Mass/Vol] 224 mg/dL High 75 - 110 mg/dL [facility] Interpretation and review of laboratory results Abnormal [facility] Glucose [Mass/Vol] 206 mg/dL High 75 - 110 mg/dL [facility] Interpretation and review of laboratory results Abnormal [facility] Basic Metab w/rfx MGon 06-24 Calcium [Mass/Vol] 8.3 mg/dL Low 8.6-10.4 [facility] Comment on above: Performed By: #### B MP, CBC #### [facility] [address] [place] [address]156 Block Sealer: Rodrick Jones MD CO2 [Moles/Vol] 23 mmol/L Normal 20-31 [facility] Comment on above: Performed By: #### B MP, CBC #### [facility] [address] [place] [address] 26593 Block Sealer: Rodrick Jones MD Creatinine [Mass/Vol] 4.24 mg/dL High 0.70-1.20 [facility] Comment on above: Performed By: #### B MP, CBC #### [facility] [address] [place] [address] 01051 Block Sealer: Rodrick Jones MD GFR/1.73 sq M.predicted among non-blacks MDRD (S/P/Bld) [Vol rate/Area] 15 mL/min/{1.73_m2} Low >60 [facility] Comment on above: Result Comment: These [...] Performed By: #### B MP, CBC #### [facility] [address] [place] [address] [phone] Block Sealer: Rodrick Jones MD Glucose [Mass/Vol] 191 mg/dL High 70-99 [facility] Comment on above: Performed By: #### B MP, CBC #### [facility] [address] [place] [address] 63110 Block Sealer: Rodrick Jones MD Urea nitrogen [Mass/Vol] 39 mg/dL High 8-23 [facility] Comment on above: Performed By: #### B MP, CBC #### [address] [address] Block Sealer: Rodrick Jones MD Creatinine [Mass/Vol] 5.19 mg/dL Critically high 0.70-1.20 [facility] Comment on above: Result Comment: Prev ious Alert Value Reported Performed By: #### C RP, RENP, CBC, MG #### [address] [address] Block Sealer: Rodrick Jones MD GFR/1.73 sq M.predicted among non-blacks MDRD (S/P/Bld) [Vol rate/Area] 12 mL/min/{1.73_m2} Low >60 [facility] Comment on above: Result Comment: These [...] #### C RP, RENP, CBC, MG #### [facility] [address] [place] [address] Block Sealer: Rodrick Jones MD Anion gap [Moles/Vol] 14 mmol/L Normal 9-17 [facility] Comment on above: Performed By: #### C RP, RENP, CBC, MG #### [facility] [address] [place] [address] [phone] Block Sealer: Rodrick Jones MD Calcium [Mass/Vol] 8.8 mg/dL Normal 8.6-10.4 [facility] Comment on above: Performed By: #### C RP, RENP, CBC, MG #### [facility] [address] [place] [address] Block Sealer: Rodrick Jones MD Chloride [Moles/Vol] 101 mmol/L Normal 98-107 [facility] Comment on above: Performed By: #### C RP, RENP, CBC, MG #### [facility] [address] [place] [address] Block Sealer: Rodrick Jones MD CO2 [Moles/Vol] 22 mmol/L Normal 20-31 [facility] Comment on above: Performed By: #### C RP, RENP, CBC, MG #### [facility] [address] [place] [address]40 Block Sealer: Rodrick Jones MD Glucose [Mass/Vol] 203 mg/dL High 70-99 [facility] Comment on above: Performed By: #### C RP, RENP, CBC, MG #### [facility] [address] [place] [address] 0[address]8 Block Sealer: Rodrick Jones MD Potassium [Moles/Vol] 3.9 mmol/L Normal 3.7-5.3 [facility] Comment on above: Performed By: #### C RP, RENP, CBC, MG #### [facility] [address] [place] [address] Block Sealer: Rodrick Jones MD Sodium [Moles/Vol] 137 mmol/L Normal 135-144 [facility] Comment on above: Performed By: #### C RP, RENP, CBC, MG #### [facility] [address] [place] [address] 79866 Block Sealer: Rodrick Jones MD Urea nitrogen [Mass/Vol] 52 mg/dL High 8-23 [facility] Comment on above: Performed By: #### C RP, RENP, CBC, MG #### [facility] [address] [place] [address] Block Sealer: Rodrick Jones MD Basic Metabolic Panel w/ Ref artis to MGon 06-24-2022 Anion gap [Moles/Vol] 15 mmol/L 9 - 17 mmol/L [facility] Calcium [Mass/Vol] 8.3 mg/dL Low 8.6 - 10. 4 mg/dL [facility] Chloride [Moles/Vol] 99 mmol/L 98 - 10 7 mmol/L [facility] CO2 [Moles/Vol] 23 mmol/L 20 - 31 mmol/L [facility] Creatinine [Mass/Vol] 4.24 mg/dL High 0.70 - 1.20 mg/dL [facility] GFR/1.73 sq M.predicted MDRD (S/P/Bld) [Vol rate/Area] 15 mL/min/{1.73_m2} Low - PINF [facility] Glucose [Mass/Vol] 191 mg/dL High 70 - 99 mg/dL [facility] Interpretation and review of laboratory results Abnormal [facility] [employer] [facility] Potassium [Moles/Vol] 3.8 mmol/L 3.7 - 5.3 mmol/L [facility] [employer] [facility] Sodium [Moles/Vol] 137 mmol/L 135 - 144 mmol/L [facility] [employer] Urea nitrogen [Mass/Vol] 39 mg/dL High 8 - 23 mg/dL [facility] [employer] HEALTH [facility] [employer] HEALTH Anion gap [Moles/Vol] 14 mmol/L 9 - 17 mmol/L [facility] Calcium [Mass/Vol] 8.8 mg/dL 8.6 - 10. 4 mg/dL [facility] Chloride [Moles/Vol] 101 mmol/L 98 - 10 7 mmol/L [facility] CO2 [Moles/Vol] 22 mmol/L 20 - 31 mmol/L [facility] Creatinine [Mass/Vol] 5.19 mg/dL Critically high 0.7 0 - 1.20 mg/dL [employer] [facility] GFR/1.73 sq M.predicted MDRD (S/P/Bld) [Vol rate/Area] 12 mL/min/{1.73_m2} Low - PINF [facility] Glucose [Mass/Vol] 203 mg/dL High 70 - 99 mg/dL [facility] Interpretation and review of laboratory results Abnormal [facility] Potassium [Moles/Vol] 3.9 mmol/L 3.7 - 5.3 mmol/L [facility] Sodium [Moles/Vol] 137 mmol/L 135 - 144 mmol/L [facility] Urea nitrogen [Mass/Vol] 52 mg/dL High 8 - 23 mg/dL [facility] CBCon 06-24-2022 Erythrocyte distribution width (RBC) [Ratio] 14.0 % Normal 11.8-14.4 [facility] Comment on above: Performed By: #### C RP, RENP, CBC, MG #### [facility] [address] [place] [address] [phone] Block Sealer: Rodrick Jones MD Hematocrit (Bld) [Volume fraction] 35.9 % Low 40.7-50.3 [facility] Comment on above: Performed By: #### C RP, RENP, CBC, MG #### [id number] [address] [place] [address] Block Sealer: Rodrick Jones MD Hemoglobin (Bld) [Mass/Vol] 11.9 g/dL Low 13.0-17.0 [facility] Comment on above: Performed By: #### C RP, RENP, CBC, MG #### [facility] [address] [place] [address] Block Sealer: Rodrick Jones MD MCH (RBC) [Entitic mass] 31.6 pg Normal 25.2-33.5 [facility] Comment on above: Performed By: #### C RP, RENP, CBC, MG #### [id number] [address] [place] [address] Block Sealer: Rodrick Jones MD MCHC (RBC) [Mass/Vol] 33.1 g/dL Normal 28.4-34.8 [facility] Comment on above: Performed By: #### C RP, RENP, CBC, MG #### [address] [address] Block Sealer: Rodrick Jones MD MCV (RBC) [Entitic vol] 95.2 fL Normal 82.6-102.9 [facility] Comment on above: Performed By: #### C RP, RENP, CBC, MG #### [address] [address] Block Sealer: Rodrick Jones MD NRBC Automated 0.0 per 100 WBC Normal 0.0 [facility] Comment on above: Performed By: #### C RP, RENP, CBC, MG #### [address] [address] Block Sealer: Rodrick Jones MD Platelet mean volume (Bld) [Entitic vol] 10.4 fL Normal 8.1-13.5 [facility] Comment on above: Performed By: #### C RP, RENP, CBC, MG #### [address] [address] Block Sealer: Rodrick Jones MD Platelets (Bld) [#/Vol] 223 10*3/uL Normal 138-453 [facility] Comment on above: Performed By: #### C RP, RENP, CBC, MG #### [address] [address] Block Sealer: Rodrick Jones MD RBC (Bld) [#/Vol] 3.77 10*6/uL Low 4.21-5.77 [facility] Comment on above: Performed By: #### C RP, RENP, CBC, MG #### [facility] [address] [place] [address], [place] [phone] Block Sealer: Rodrick Jones MD WBC (Bld) [#/Vol] 10.1 10*3/uL Normal 3.5-11.3 [facility] Comment on above: Performed By: #### C RP, RENP, CBC, MG #### [facility] [address] [place], [place] [phone] Block Sealer: Rodrick Jones MD Hematocrit (Bld) [Volume fraction] 35.9 % Low 40.7 - 50.3 % [facility] Hemoglobin (Bld) [Mass/Vol] 11.9 g/dL Low 13.0 - 17.0 g/dL [facility] Interpretation and review of laboratory results Abnormal [facility] MCH (RBC) [Entitic mass] 31.6 pg 25.2 - 33.5 pg [facility] MCHC (RBC) [Mass/Vol] 33.1 g/dL 28.4 - 34.8 g/dL [facility] MCV (RBC) [Entitic vol] 95.2 fL 82.6 - 102.9 fL [facility] NRBC Automated 0.0 0.0 per 100 WBC [facility] Platelet distribution width (Bld) [Ratio] 14.0 % 11.8 - 14.4 % [facility] Platelet mean volume (Bld) [Entitic vol] 10.4 fL 8.1 - 13.5 fL [facility] Platelets (Bld) [#/Vol] 223 10*3/uL [facility] RBC (Bld) [#/Vol] 3.77 10*6/uL Low 4.21 - 5.7 7 m/uL [facility] WBC (Bld) [#/Vol] 10.1 10*3/uL [facility] IR NON TUNNELED CATH WO PORT REPLACEMENTon 06-24-2022 MHPN RIS CONSOLIDATED MHPN RIS CONSOLIDATED [facility] Work Phone: Radiology Study observation (narrative) [facility] Work Phone: IR NON TUNNELED CATH WO PORT REPLACEMENTOrdered By: Jessica Bolivar on 06-24-2022 [facility] Work Phone: Immunofixation urine random profileon 06-24-2022 Protein (U) [Mass/Vol] 187 mg/dL [facility] Urine IFX Interp IMMUNOFIXATION IS NEGATIVE FOR MONOCLONAL IMMUNOGLOBULIN. [facility] Urine IFX Specimen .Random Urine [facility] Immunofixation,Urineon 06-24 Ur. IFX-Interpret IMMUNOFIXATION IS NEGATIVE FOR MONOCLONAL IMMUNOGLOBULIN. Normal [facility] Comment on above: Performed By: #### C RP, RENP, CBC, MG #### [facility] [address] [place], [place] [phone] Block Sealer: Rodrick Jones MD Magnesiumon 06-24-2022 Magnesium [Mass/Vol] 1.8 mg/dL Normal 1.6-2.6 [facility] Comment on above: Performed By: #### C RP, RENP, CBC, MG #### [id number] [address] [place], [place] [phone] Block Sealer: Rodrick Jones MD Magnesium [Mass/Vol] 1.8 mg/dL 1.6 - 2 .6 mg/dL [facility] POC Glucose Fingerstickon Glucose [Mass/Vol] 179 mg/dL High 75 - 110 mg/dL [facility] Interpretation and review of laboratory results Abnormal [facility] Glucose [Mass/Vol] 179 mg/dL High 75 - 110 mg/dL [facility] Interpretation and review of laboratory results Abnormal [facility] Glucose [Mass/Vol] 173 mg/dL High 75 - 110 mg/dL [facility] Interpretation and review of laboratory results Abnormal [facility] Glucose [Mass/Vol] 227 mg/dL High 75 - 110 mg/dL [facility] Interpretation and review of laboratory results Abnormal [facility] Glucose [Mass/Vol] 186 mg/dL High 75 - 110 mg/dL [facility] Interpretation and review of laboratory results Abnormal [facility] PROTEIN ELECTROPHORESIS, URI NEon 06-24-2022 P E Interpretation, U ELEVATED PROTEIN CONCENTRATION. MOST SERUM PROTEINS ARE DETECTED IN THIS URINE. USUALLY OBSERVED WITH MARKEDLY INCREASED NON-SELECTIVE GLOMERULAR PERMEABILITY (i.e. SEVERE GLOMERULAR DISEASE), CONTAMINATION OF [facility] Pathologist ELECTRONICALLY SIGNED. KUSUM VILLAFANA M.D. [facility] Protein (U) [Mass/Vol] 187 mg/dL [facility] Specimen Type .Random Urine [facility] Prot. Electrophoresis, Uron 06-24-2022 Pathologist Review: ELECTRONICALLY SIGNED. KUSUM VILLAFANA M.D. Normal [facility] Comment on above: Performed By: #### I FX, URI, C4, PE, FKLLC, C3, PTHNCA #### [id number] [address] [place] [address] Block Sealer: Rodrick Jones MD Ur.-Prot.Elect-Inter ELEVATED PROTEIN CONCENTRATION. MOST SERUM PROTEINS ARE DETECTED IN THIS URINE. Normal [facility] Comment on above: Result Comment: USUA LLY OBSERVED WITH MARKEDLY INCREASED NON-SELECTIVE GLOMERULAR PERMEABILITY (i.e. SEVERE GLOMERULAR DISEASE), CONTAMINATION OF URINE WITH BLOOD, OR A COMBINATION OF THESE. A DECREASE IN TUBULAR FUNCTION CANNOT BE RULED OUT. IMMUNOFIXATION IS NEGATIVE FOR MONOCLONAL IMMUNOGLOBULIN. SPECIMEN IS BLOODY. Performed By: #### I FX, URI, C4, PE, FKLLC, C3, PTHNCA #### [id number] [address] [place] [address] Block Sealer: Rodrick Jones MD Basic Metab w/rfx MGon 06-23 Creatinine [Mass/Vol] 5.25 mg/dL Critically high 0.70-1.20 [facility] Comment on above: Result Comment: Prev ious Alert Value Reported Performed By: #### B CECY, CBC #### [facility] [address] [place] [address] Block Sealer: Rodrick Jones MD GFR/1.73 sq M.predicted among non-blacks MDRD (S/P/Bld) [Vol rate/Area] 12 mL/min/{1.73_m2} Low >60 [facility] Comment on above: Result Comment: These [...] Performed By: #### B CECY, CBC #### [facility] [address] [place] [address] Block Sealer: Rodrick Jones MD Anion gap [Moles/Vol] 16 mmol/L Normal 9-17 [facility] Comment on above: Performed By: #### B CECY, CBC #### [facility] [address] [place] [address] Block Sealer: Rodrick Jones MD Calcium [Mass/Vol] 8.8 mg/dL Normal 8.6-10.4 [facility] Comment on above: Performed By: #### B CECY, CBC #### [facility] [address] [place] [address] Block Sealer: Rodrick Jones MD Chloride [Moles/Vol] 100 mmol/L Normal 98-107 [facility] Comment on above: Performed By: #### B MP, CBC #### [facility] [address] [place] [address] Block Sealer: Rodrick Jones MD CO2 [Moles/Vol] 20 mmol/L Normal 20-31 [facility] Comment on above: Performed By: #### B MP, CBC #### [facility] [address] [place] [address] Block Sealer: Rodrick Jones MD Glucose [Mass/Vol] 249 mg/dL High 70-99 [facility] Comment on above: Performed By: #### B MP, CBC #### [facility] [place] [address] Block Sealer: Rodrick Jones MD Potassium [Moles/Vol] 4.5 mmol/L Normal 3.7-5.3 [facility] Comment on above: Performed By: #### B MP, CBC #### [facility] [address] [place] [address] Block Sealer: Rodrick Jones MD Sodium [Moles/Vol] 136 mmol/L Normal 135-144 [facility] Comment on above: Performed By: #### B MP, CBC #### [facility] [address] [place] [address] Block Sealer: Rodrick Jones MD Urea nitrogen [Mass/Vol] 53 mg/dL High 8-23 [facility] Comment on above: Performed By: #### B MP, CBC #### [facility] [address] [place] [address] Block Sealer: Rodrick Jones MD Basic Metabolic Panel w/ Ref artis to MGon 06-23-2022 Anion gap [Moles/Vol] 16 mmol/L 9 - 17 mmol/L [facility] Calcium [Mass/Vol] 8.8 mg/dL 8.6 - 10. 4 mg/dL [facility] Chloride [Moles/Vol] 100 mmol/L 98 - 10 7 mmol/L [facility] CO2 [Moles/Vol] 20 mmol/L 20 - 31 mmol/L [facility] Creatinine [Mass/Vol] 5.25 mg/dL Critically high 0.7 0 - 1.20 mg/dL [facility] GFR/1.73 sq M.predicted MDRD (S/P/Bld) [Vol rate/Area] 12 mL/min/{1.73_m2} Low - PINF [facility] Glucose [Mass/Vol] 249 mg/dL High 70 - 99 mg/dL [facility] Interpretation and review of laboratory results Abnormal [facility] Potassium [Moles/Vol] 4.5 mmol/L 3.7 - 5.3 mmol/L [facility] Sodium [Moles/Vol] 136 mmol/L 135 - 144 mmol/L [facility] Urea nitrogen [Mass/Vol] 53 mg/dL High 8 - 23 mg/dL [facility] C-Reactive Proteinon 023 CRP [Mass/Vol] 111.5 mg/L High 0.0-5.0 [facility] Comment on above: Performed By: #### B CECY, CBC #### [id number] [address] [place], [place] [id number] Block Sealer: Rodrick Jones MD CRP High sensitivity method [Mass/Vol] 111.5 mg/L High 0.0 - 5.0 mg/L [facility] Interpretation and review of laboratory results Abnormal [facility] CBCon 06-23-2022 Erythrocyte distribution width (RBC) [Ratio] 14.2 % Normal 11.8-14.4 [facility] Comment on above: Performed By: #### B MP, CBC #### [facility] [address] [place], [place] [phone] Block Sealer: Rodrick Jones MD Hematocrit (Bld) [Volume fraction] 36.4 % Low 40.7-50.3 [facility] Comment on above: Performed By: #### B MP, CBC #### [facility] [address] [place], [place] [phone] Block Sealer: Rodrick Jones MD Hemoglobin (Bld) [Mass/Vol] 11.7 g/dL Low 13.0-17.0 [facility] Comment on above: Performed By: #### B MP, CBC #### [address] [address] Block Sealer: Rodrick Jones MD MCH (RBC) [Entitic mass] 30.5 pg Normal 25.2-33.5 [facility] Comment on above: Performed By: #### B MP, CBC #### [address] [address] Block Sealer: Rodrick Jones MD MCHC (RBC) [Mass/Vol] 32.1 g/dL Normal 28.4-34.8 [facility] Comment on above: Performed By: #### B MP, CBC #### [address] [address] Block Sealer: Rodrick Jones MD MCV (RBC) [Entitic vol] 95.0 fL Normal 82.6-102.9 [facility] Comment on above: Performed By: #### B MP, CBC #### [address] [address] Block Sealer: Rodrick Jones MD NRBC Automated 0.0 per 100 WBC Normal 0.0 [facility] Comment on above: Performed By: #### B MP, CBC #### [address] [address] Block Sealer: Rodrick Jones MD Platelet mean volume (Bld) [Entitic vol] 11.1 fL Normal 8.1-13.5 [facility] Comment on above: Performed By: #### B MP, CBC #### [address] [address] Block Sealer: Rodrick Jones MD Platelets (Bld) [#/Vol] 216 10*3/uL Normal 138-453 [facility] Comment on above: Performed By: #### B MP, CBC #### [address] [address] Block Sealer: Rodrick Jones MD RBC (Bld) [#/Vol] 3.83 10*6/uL Low 4.21-5.77 [facility] Comment on above: Performed By: #### B MP, CBC #### [facility] [address] [place], [place] [phone] Block Sealer: Rodrick Jones MD WBC (Bld) [#/Vol] 9.7 10*3/uL Normal 3.5-11.3 [facility] Comment on above: Performed By: #### B MP, CBC #### [facility] [address] [place] [address] Block Sealer: Rodrick Jones MD Hematocrit (Bld) [Volume fraction] 36.4 % Low 40.7 - 50.3 % [facility] Hemoglobin (Bld) [Mass/Vol] 11.7 g/dL Low 13.0 - 17.0 g/dL [facility] Interpretation and review of laboratory results Abnormal [facility] MCH (RBC) [Entitic mass] 30.5 pg 25.2 - 33.5 pg [facility] MCHC (RBC) [Mass/Vol] 32.1 g/dL 28.4 - 34.8 g/dL [facility] MCV (RBC) [Entitic vol] 95.0 fL 82.6 - 102.9 fL [facility] NRBC Automated 0.0 0.0 per 100 WBC [facility] Platelet distribution width (Bld) [Ratio] 14.2 % 11.8 - 14.4 % [facility] Platelet mean volume (Bld) [Entitic vol] 11.1 fL 8.1 - 13.5 fL [facility] Platelets (Bld) [#/Vol] 216 10*3/uL [facility] RBC (Bld) [#/Vol] 3.83 10*6/uL Low 4.21 - 5.7 7 m/uL [facility] WBC (Bld) [#/Vol] 9.7 10*3/uL [facility] ABDOMEN PELVIS WO CONTRAS Ton [...] Radha Caceres MD 06/23/22 Final result Normal [facility] CT ABDOMEN PELVIS WO CONTRAS T Additional Contrast? Noneon 06-23-2022 [facility] Work Phone: [facility] [employer] Phone: CT HEAD WO CONTRASTon 2022 CT [...] Radha Caceres MD 06/23/22 Final result Normal [facility] RIS CONSOLIDATED [facility] Work Phone: [facility] [employer] Phone: EKG 12 Leadon 06-23-2022 Atrial Rate 85 BPM [email or web address] Work Phone: P [place] 15 degrees [email or web address] Work Phone: P-R Interval 190 ms [email or web address] Work Phone: Q-T Interval 382 ms [email or web address] Work Phone: QRS Duration 106 ms [email or web address] Work Phone: QTc Calculation (Bazett) 454 ms [email or web address] Work Phone: R [place] -18 degrees [email or web address] Work Phone: T [place] -11 degrees [email or web address] Work Phone: Ventricular Rate 85 BPM [employer] Work Phone: MHPN STV MUSE [email or web address] Work Phone: [email or web address] Work Phone: MHPN STV MUSE [email or web address] Work Phone: EKG 12 LeadOrdered By: Karely Ewing on 06-23-2022 Atrial Rate 89 BPM [email or web address] Work Phone: P [place] 49 degrees [email or web address] Work Phone: P-R Interval 178 ms [email or web address] Work Phone: Q-T Interval 380 ms [email or web address] Work Phone: QRS Duration 96 ms [email or web address] Work Phone: QTc Calculation (Bazett) 462 ms [email or web address] Work Phone: R [place] -12 degrees [employer] Work Phone: T [place] -6 degrees [email or web address] Work Phone: Ventricular Rate 89 BPM [employer] Work Phone: [facility] Work Phone: Electrolyte Panelon 06-24-19 Anion gap [Moles/Vol] 14 mmol/L 9 - 17 mmol/L [facility] Chloride [Moles/Vol] 99 mmol/L 98 - 10 7 mmol/L [facility] CO2 [Moles/Vol] 22 mmol/L 20 - 31 mmol/L [facility] Potassium [Moles/Vol] 4.2 mmol/L 3.7 - 5.3 mmol/L [facility] Sodium [Moles/Vol] 135 mmol/L 135 - 144 mmol/L [facility] Electrolyteson 06-23-2022 Anion gap [Moles/Vol] 14 mmol/L Normal 9-17 [facility] Comment on above: Performed By: #### I FX, URI, C4, PE, FKLLC, C3, PTHNCA #### [id number] [address] [place] [address] Block Sealer: Rodrick Jones MD Chloride [Moles/Vol] 99 mmol/L Normal 98-107 [facility] Comment on above: Performed By: #### I FX, URI, C4, PE, FKLLC, C3, PTHNCA #### [facility] [address] [place], [place] [phone] Block Sealer: Rodrick Jones MD CO2 [Moles/Vol] 22 mmol/L Normal 20-31 [facility] Comment on above: Performed By: #### I FX, URI, C4, PE, FKLLC, C3, PTHNCA #### [facility] [address] [place] [address] Block Sealer: Rodrick Jones MD Potassium [Moles/Vol] 4.2 mmol/L Normal 3.7-5.3 [facility] Comment on above: Performed By: #### I FX, URI, C4, PE, FKLLC, C3, PTHNCA #### [address] [address] Block Sealer: Rodrick Jones MD Sodium [Moles/Vol] 135 mmol/L Normal 135-144 [facility] Comment on above: Performed By: #### I FX, URI, C4, PE, FKLLC, C3, PTHNCA #### [address] [address] Block Sealer: Rodrick Jones MD Immunofixation,Urineon 06-23 Protein (U) [Mass/Vol] 187 mg/dL Normal [facility] Comment on above: Performed By: #### C RP, RENP, CBC, MG #### [address] [address] Block Sealer: Rodrick Jones MD Type of Specimen .Random Urine Normal [facility] Comment on above: Performed By: #### C RP, RENP, CBC, MG #### [address] [address] Block Sealer: Rodrick Jones MD Magnesiumon 06-23-2022 Magnesium [Mass/Vol] 1.8 mg/dL Normal 1.6-2.6 [facility] Comment on above: Performed By: #### B MP, CBC #### [address] [address] Block Sealer: Rodrick Jones MD Magnesium [Mass/Vol] 1.8 mg/dL 1.6 - 2 .6 mg/dL [facility] No Panel Informationon 06-23 [facility] POC Glucose Fingerstickon Glucose [Mass/Vol] 238 mg/dL High 75 - 110 mg/dL [facility] Interpretation and review of laboratory results Abnormal [facility] Glucose [Mass/Vol] 242 mg/dL High 75 - 110 mg/dL [facility] Interpretation and review of laboratory results Abnormal [facility] Glucose [Mass/Vol] 237 mg/dL High 75 - 110 mg/dL [facility] Interpretation and review of laboratory results Abnormal [facility] Glucose [Mass/Vol] 240 mg/dL High 75 - 110 mg/dL [facility] Interpretation and review of laboratory results Abnormal [facility] Glucose [Mass/Vol] 239 mg/dL High 75 - 110 mg/dL [facility] Interpretation and review of laboratory results Abnormal [facility] Basic Metabolic Panelon 06-09 Anion gap [Moles/Vol] 13 mmol/L 9 - 17 mmol/L [facility] Calcium [Mass/Vol] 8.5 mg/dL Low 8.6 - 10. 4 mg/dL [facility] Chloride [Moles/Vol] 99 mmol/L 98 - 10 7 mmol/L [facility] CO2 [Moles/Vol] 21 mmol/L 20 - 31 mmol/L [facility] Creatinine [Mass/Vol] 5.19 mg/dL Critically high 0.7 0 - 1.20 mg/dL [facility] GFR/1.73 sq M.predicted MDRD (S/P/Bld) [Vol rate/Area] 12 mL/min/{1.73_m2} Low - PINF [facility] Glucose [Mass/Vol] 280 mg/dL High 70 - 99 mg/dL [facility] Interpretation and review of laboratory results Abnormal [facility] Potassium [Moles/Vol] 4.5 mmol/L 3.7 - 5.3 mmol/L [facility] Sodium [Moles/Vol] 133 mmol/L Low 135 - 144 mmol/L [facility] Urea nitrogen [Mass/Vol] 53 mg/dL High 8 - 23 mg/dL [facility] Anion gap [Moles/Vol] 15 mmol/L 9 - 17 mmol/L [facility] Calcium [Mass/Vol] 8.5 mg/dL Low 8.6 - 10. 4 mg/dL [facility] Chloride [Moles/Vol] 98 mmol/L 98 - 10 7 mmol/L [facility] CO2 [Moles/Vol] 20 mmol/L 20 - 31 mmol/L [facility] Creatinine [Mass/Vol] 5.19 mg/dL Critically high 0.7 0 - 1.20 mg/dL [facility] GFR/1.73 sq M.predicted MDRD (S/P/Bld) [Vol rate/Area] 12 mL/min/{1.73_m2} Low - PINF [facility] Glucose [Mass/Vol] 284 mg/dL High 70 - 99 mg/dL [facility] Interpretation and review of laboratory results Abnormal [facility] Potassium [Moles/Vol] 4.3 mmol/L 3.7 - 5.3 mmol/L [facility] Sodium [Moles/Vol] 133 mmol/L Low 135 - 144 mmol/L [facility] Urea nitrogen [Mass/Vol] 53 mg/dL High 8 - 23 mg/dL [facility] Basic Metabolic Profon 06-22 Creatinine [Mass/Vol] 5.19 mg/dL Critically high 0.70-1.20 [facility] Comment on above: Result Comment: Prev ious Alert Value Reported Performed By: #### B MP, CBC #### [facility] [address] [place], [place] [id number] Block Sealer: Rodrick Jones MD GFR/1.73 sq M.predicted among non-blacks MDRD (S/P/Bld) [Vol rate/Area] 12 mL/min/{1.73_m2} Low >60 [facility] Comment on above: Result Comment: These [...] #### B MP, CBC #### [facility] [address] [place] [address] Block Sealer: Rodrick Jones MD Anion gap [Moles/Vol] 13 mmol/L Normal 9-17 [facility] Comment on above: Performed By: #### B MP, CBC #### [facility] [address] [place] [address] Block Sealer: Rodrick Jones MD Calcium [Mass/Vol] 8.5 mg/dL Low 8.6-10.4 [facility] Comment on above: Performed By: #### B MP, CBC #### [facility] [address] [place] [address] Block Sealer: Rodrick Jones MD Chloride [Moles/Vol] 99 mmol/L Normal 98-107 [facility] Comment on above: Performed By: #### B MP, CBC #### [facility] [address] [place] [address] Block Sealer: Rodrick Jones MD CO2 [Moles/Vol] 21 mmol/L Normal 20-31 [facility] Comment on above: Performed By: #### B MP, CBC #### [facility] [address] [place] [address] Block Sealer: Rodrick Jones MD Glucose [Mass/Vol] 280 mg/dL High 70-99 [facility] Comment on above: Performed By: #### B MP, CBC #### [facility] [address] [place] [address] Block Sealer: Rodrick Jones MD Potassium [Moles/Vol] 4.5 mmol/L Normal 3.7-5.3 [facility] Comment on above: Performed By: #### B MP, CBC #### [facility] [address] [place] [address] Block Sealer: Rodrick Jones MD Sodium [Moles/Vol] 133 mmol/L Low 135-144 [facility] Comment on above: Performed By: #### B MP, CBC #### [facility] [address] [place] [address] Block Sealer: Rodrick Jones MD Urea nitrogen [Mass/Vol] 53 mg/dL High 8-23 [facility] Comment on above: Performed By: #### B MP, CBC #### [facility] [address] [place] [address] Block Sealer: Rodrick Jones MD Creatinine [Mass/Vol] 5.19 mg/dL Critically high 0.70-1.20 [facility] Comment on above: Result Comment: Prev ious Alert Value Reported Performed By: #### C RP, RENP, CBC, MG #### [address] [address] Block Sealer: Rodrick Jones MD GFR/1.73 sq M.predicted among non-blacks MDRD (S/P/Bld) [Vol rate/Area] 12 mL/min/{1.73_m2} Low >60 [facility] Comment on above: Result Comment: These [...] #### C RP, RENP, CBC, MG #### [facility] [address] [place] [address] Block Sealer: Rodrick Jones MD Anion gap [Moles/Vol] 15 mmol/L Normal 9-17 [facility] Comment on above: Performed By: #### C RP, RENP, CBC, MG #### [facility] [address] [place] [address] Block Sealer: Rodrick Jones MD Calcium [Mass/Vol] 8.5 mg/dL Low 8.6-10.4 [facility] Comment on above: Performed By: #### C RP, RENP, CBC, MG #### [facility] [address] [place] [address] Block Sealer: Rodrick Jones MD Chloride [Moles/Vol] 98 mmol/L Normal 98-107 [facility] Comment on above: Performed By: #### C RP, RENP, CBC, MG #### [facility] [address] [place] [address] Block Sealer: Rodrick Jones MD CO2 [Moles/Vol] 20 mmol/L Normal 20-31 [facility] Comment on above: Performed By: #### C RP, RENP, CBC, MG #### [facility] [address] [place] [address] Block Sealer: Rodrick Jones MD Glucose [Mass/Vol] 284 mg/dL High 70-99 [facility] Comment on above: Performed By: #### C RP, RENP, CBC, MG #### [facility] [address] [place] [address] Block Sealer: Rodrick Jones MD Potassium [Moles/Vol] 4.3 mmol/L Normal 3.7-5.3 [facility] Comment on above: Performed By: #### C RP, RENP, CBC, MG #### [facility] [address] [place] [address] Block Sealer: Rodrick Jones MD Sodium [Moles/Vol] 133 mmol/L Low 135-144 [facility] Comment on above: Performed By: #### C RP, RENP, CBC, MG #### [facility] [address] [place] [address] Block Sealer: Rodrick Jones MD Urea nitrogen [Mass/Vol] 53 mg/dL High 8-23 [facility] Comment on above: Performed By: #### C RP RENP, CBC, MG #### [facility] [address] [place] [address] Block Sealer: Rodrick Jones MD GFR/1.73 sq M.predicted among non-blacks MDRD (S/P/Bld) [Vol rate/Area] 12 mL/min/{1.73_m2} Low >60 [facility] Comment on above: Result Comment: These [...] renal tubular secretion. Performed By: #### C RP RENP, CBC, MG #### [facility] [address] [place] [address] Block Sealer: Rodrick Jones MD CBCon 06-22-2022 Erythrocyte distribution width (RBC) [Ratio] 14.0 % Normal 11.8-14.4 [facility] Comment on above: Performed By: #### B MP, CBC #### [facility] [address] [place] [address] Block Sealer: Rodrick Jones MD Hematocrit (Bld) [Volume fraction] 36.9 % Low 40.7-50.3 [facility] Comment on above: Performed By: #### B MP, CBC #### [facility] [address] [place] [address] Block Sealer: Rodrick Jones MD Hemoglobin (Bld) [Mass/Vol] 12.0 g/dL Low 13.0-17.0 [facility] Comment on above: Performed By: #### B MP, CBC #### [facility] [address] [place] [address] Block Sealer: Rodrick Jones MD MCH (RBC) [Entitic mass] 30.5 pg Normal 25.2-33.5 [facility] Comment on above: Performed By: #### B MP, CBC #### [address] [address] Block Sealer: Rodrick Jones MD MCHC (RBC) [Mass/Vol] 32.5 g/dL Normal 28.4-34.8 [facility] Comment on above: Performed By: #### B MP, CBC #### [address] [address] Block Sealer: Rodrick Jones MD MCV (RBC) [Entitic vol] 93.9 fL Normal 82.6-102.9 [facility] Comment on above: Performed By: #### B MP, CBC #### [address] [address] Block Sealer: Rodrick Jones MD NRBC Automated 0.0 per 100 WBC Normal 0.0 [facility] Comment on above: Performed By: #### B MP, CBC #### [address] [address] Block Sealer: Rodrick Jones MD Platelet mean volume (Bld) [Entitic vol] 10.9 fL Normal 8.1-13.5 [facility] Comment on above: Performed By: #### B MP, CBC #### [address] [address] Block Sealer: Rodrick Jones MD Platelets (Bld) [#/Vol] 163 10*3/uL Normal 138-453 [facility] Comment on above: Performed By: #### B MP, CBC #### [address] [address] Block Sealer: Rodrick Jones MD RBC (Bld) [#/Vol] 3.93 10*6/uL Low 4.21-5.77 [facility] Comment on above: Performed By: #### B MP, CBC #### [facility] [address] [place], [place] [id number] Block Sealer: Rodrick Jones MD WBC (Bld) [#/Vol] 8.7 10*3/uL Normal 3.5-11.3 [facility] Comment on above: Performed By: #### B MP, CBC #### [id number] [address] [place], [place] [phone] Block Sealer: Rodrick Jones MD Hematocrit (Bld) [Volume fraction] 36.9 % Low 40.7 - 50.3 % [facility] Hemoglobin (Bld) [Mass/Vol] 12.0 g/dL Low 13.0 - 17.0 g/dL [facility] Interpretation and review of laboratory results Abnormal [facility] MCH (RBC) [Entitic mass] 30.5 pg 25.2 - 33.5 pg [facility] MCHC (RBC) [Mass/Vol] 32.5 g/dL 28.4 - 34.8 g/dL [facility] MCV (RBC) [Entitic vol] 93.9 fL 82.6 - 102.9 fL [facility] NRBC Automated 0.0 0.0 per 100 WBC [facility] Platelet distribution width (Bld) [Ratio] 14.0 % 11.8 - 14.4 % [facility] Platelet mean volume (Bld) [Entitic vol] 10.9 fL 8.1 - 13.5 fL [facility] Platelets (Bld) [#/Vol] 163 10*3/uL [facility] RBC (Bld) [#/Vol] 3.93 10*6/uL Low 4.21 - 5.7 7 m/uL [facility] WBC (Bld) [#/Vol] 8.7 10*3/uL [facility] Cult,Urineon 06-22-2022 Cult,Urine Specimen Description .CLEAN CATCH URINE Culture NO SIGNIFICANT GROWTH Identified as : VIRIDANS STREPTOCOCCUS GROUP <[id number] CFU/ML Report Status FINAL 06/22/2022 Normal [facility] Comment on above: Performed By: #### B MP, CBC #### [facility] [address] [place] [address] [id number] Block Sealer: Rodrick Jones MD Culture, Urineon 06-22-2022 Microorganism identified Cx Nom (Unsp spec) NO SIGNIFICANT GROWTH Identified as : VIRIDANS STREPTOCOCCUS GROUP <[id number] CFU/ML [facility] Specimen Description .CLEAN CATCH URINE [facility] [employer]ob[employer] Group Eosinophils, Urineon 023 Eosinophils, Urine NONE SEEN Normal NSN [facility] Comment on above: Performed By: #### I FX, URI, C4, PE, FKLLC, C3, PTHNCA #### [facility] [address] [place] [address] [phone] Block Sealer: Rodrick Jones MD Magnesiumon 06-22-2022 Magnesium [Mass/Vol] 1.8 mg/dL Normal 1.6-2.6 [facility] Comment on above: Performed By: #### B MP, CBC #### [facility] [address] [place] [address] [phone] Block Sealer: Rodrick Jones MD Magnesium [Mass/Vol] 1.8 mg/dL 1.6 - 2 .6 mg/dL [facility] Magnesium [Mass/Vol] 1.8 mg/dL Normal 1.6-2.6 [facility] Comment on above: Performed By: #### C RP, RENP, CBC, MG #### [facility] [address] [place] [address] Block Sealer: Rodrick Jones MD Magnesium [Mass/Vol] 1.8 mg/dL 1.6 - 2 .6 mg/dL [facility] [employer] No Panel Informationon 06-22 [facility] [employer] POC Glucose Fingerstickon Glucose [Mass/Vol] 292 mg/dL High 75 - 110 mg/dL [facility] Interpretation and review of laboratory results Abnormal [facility] Glucose [Mass/Vol] 250 mg/dL High 75 - 110 mg/dL [facility] Interpretation and review of laboratory results Abnormal [facility] Glucose [Mass/Vol] 270 mg/dL High 75 - 110 mg/dL [facility] Interpretation and review of laboratory results Abnormal [facility] Glucose [Mass/Vol] 248 mg/dL High 75 - 110 mg/dL [facility] Interpretation and review of laboratory results Abnormal [facility] Phosphoruson 06-22-2022 Interpretation and review of laboratory results Abnormal [facility] Phosphate [Mass/Vol] 5.2 mg/dL High 2.5 - 4 .5 mg/dL [facility] Phosphorus, Inorg.on 023 Phosphorus, Inorg. 5.2 mg/dL High 2.5-4.5 [facility] Comment on above: Performed By: #### C RP, RENP, CBC, MG #### [id number] [place] [address] Block Sealer: Rodrick Jones MD Prot. Electrophoresis, Uron 06-22-2022 Total Protein Conc. 187 mg/dL Normal [facility] Comment on above: Performed By: #### I FX, URI, C4, PE, FKLLC, C3, PTHNCA #### [id number] [place] [address] Block Sealer: Rodrick Jones MD Basic Metabolic Panelon 06-09 Anion gap [Moles/Vol] 15 mmol/L 9 - 17 mmol/L [facility] Calcium [Mass/Vol] 8.2 mg/dL Low 8.6 - 10. 4 mg/dL [facility] Chloride [Moles/Vol] 96 mmol/L Low 98 - 10 7 mmol/L [facility] CO2 [Moles/Vol] 18 mmol/L Low 20 - 31 mmol/L [facility] GFR/1.73 sq M.predicted MDRD (S/P/Bld) [Vol rate/Area] 12 mL/min/{1.73_m2} Low - PINF [facility] Glucose [Mass/Vol] 348 mg/dL High 70 - 99 mg/dL [facility] Interpretation and review of laboratory results Abnormal [facility] Potassium [Moles/Vol] 4.4 mmol/L 3.7 - 5.3 mmol/L [facility] Sodium [Moles/Vol] 129 mmol/L Low 135 - 144 mmol/L [facility] Urea nitrogen [Mass/Vol] 50 mg/dL High 8 - 23 mg/dL [facility] Anion gap [Moles/Vol] 15 mmol/L 9 - 17 mmol/L [facility] Calcium [Mass/Vol] 8.1 mg/dL Low 8.6 - 10. 4 mg/dL [facility] Chloride [Moles/Vol] 94 mmol/L Low 98 - 10 7 mmol/L [facility] CO2 [Moles/Vol] 17 mmol/L Low 20 - 31 mmol/L [facility] Creatinine [Mass/Vol] 4.7 mg/dL High 0.70 - 1.20 mg/dL [facility] GFR/1.73 sq M.predicted MDRD (S/P/Bld) [Vol rate/Area] 13 mL/min/{1.73_m2} Low - PINF [facility] Glucose [Mass/Vol] 380 mg/dL High 70 - 99 mg/dL [facility] Potassium [Moles/Vol] 4.3 mmol/L 3.7 - 5.3 mmol/L [facility] Sodium [Moles/Vol] 126 mmol/L Low 135 - 144 mmol/L [facility] Urea nitrogen [Mass/Vol] 50 mg/dL High 8 - 23 mg/dL [facility] Basic Metabolic Profon 06-21 Anion gap [Moles/Vol] 15 mmol/L Normal 9-17 [facility] Comment on above: Performed By: #### C RP, RENP, CBC, MG #### [facility] [address] [place] [address] Block Sealer: Rodrick Jones MD Calcium [Mass/Vol] 8.2 mg/dL Low 8.6-10.4 [facility] Comment on above: Performed By: #### C RP, RENP, CBC, MG #### [facility] [address] [place] [address] Block Sealer: Rodrick Jones MD Chloride [Moles/Vol] 96 mmol/L Low 98-107 [facility] Comment on above: Performed By: #### C RP, RENP, CBC, MG #### [facility] [address] [place] [address] Block Sealer: Rodrick Jones MD CO2 [Moles/Vol] 18 mmol/L Low 20-31 [facility] Comment on above: Performed By: #### C RP, RENP, CBC, MG #### [facility] [address] [place] [address] Block Sealer: Rodrick Jones MD Glucose [Mass/Vol] 348 mg/dL High 70-99 [facility] Comment on above: Performed By: #### C RP, RENP, CBC, MG #### [facility] [address] [place] [address] Block Sealer: Rodrick Jones MD Potassium [Moles/Vol] 4.4 mmol/L Normal 3.7-5.3 [facility] Comment on above: Performed By: #### C RP, RENP, CBC, MG #### [facility] [address] [place] [address] Block Sealer: Rodrick Jones MD Sodium [Moles/Vol] 129 mmol/L Low 135-144 [facility] Comment on above: Performed By: #### C RP, RENP, CBC, MG #### [facility] [place] [address] Block Sealer: Rodrick Jones MD Urea nitrogen [Mass/Vol] 50 mg/dL High 8-23 [facility] Comment on above: Performed By: #### C RP, RENP, CBC, MG #### [facility] [address] [place] [address] Block Sealer: Rodrick Jones MD Creatinine [Mass/Vol] 5.13 mg/dL Critically high 0.70-1.20 [facility] Comment on above: Performed By: #### C RP, RENP, CBC, MG #### [facility] [address] [place] [address] Block Sealer: Rodrick Jones MD Anion gap [Moles/Vol] 15 mmol/L Normal 9-17 [facility] Comment on above: Performed By: #### I FX, URI, C4, PE, FKLLC, C3, PTHNCA #### [address] [address] Block Sealer: Rodrick Jones MD Calcium [Mass/Vol] 8.1 mg/dL Low 8.6-10.4 [facility] Comment on above: Performed By: #### I FX, URI, C4, PE, FKLLC, C3, PTHNCA #### [address] [address] Block Sealer: Rodrick Jones MD Chloride [Moles/Vol] 94 mmol/L Low 98-107 [facility] Comment on above: Performed By: #### I FX, URI, C4, PE, FKLLC, C3, PTHNCA #### [address] [address] Block Sealer: Rodrick Jones MD CO2 [Moles/Vol] 17 mmol/L Low 20-31 [facility] Comment on above: Performed By: #### I FX, URI, C4, PE, FKLLC, C3, PTHNCA #### [address] [id number] Block Sealer: Rodrick Jones MD Creatinine [Mass/Vol] 4.70 mg/dL High 0.70-1.20 [facility] Comment on above: Performed By: #### I FX, URI, C4, PE, FKLLC, C3, PTHNCA #### [address] [phone] Block Sealer: Rodrick Jones MD GFR/1.73 sq M.predicted among non-blacks MDRD (S/P/Bld) [Vol rate/Area] 13 mL/min/{1.73_m2} Low >60 [facility] Comment on above: Result Comment: These [...] URI, C4, PE, FKLLC, C3, PTHNCA #### [address] [id number] Block Sealer: Rodrick Jones MD Glucose [Mass/Vol] 380 mg/dL High 70-99 [facility] Comment on above: Performed By: #### I FX, URI, C4, PE, FKLLC, C3, PTHNCA #### [address] [id number] Block Sealer: Rodrick Jones MD Potassium [Moles/Vol] 4.3 mmol/L Normal 3.7-5.3 [facility] Comment on above: Performed By: #### I FX, URI, C4, PE, FKLLC, C3, PTHNCA #### [address] [address] Block Sealer: Rodrick Jones MD Sodium [Moles/Vol] 126 mmol/L Low 135-144 [facility] Comment on above: Performed By: #### I FX, URI, C4, PE, FKLLC, C3, PTHNCA #### [address] [address] Block Sealer: Rodrick Jones MD Urea nitrogen [Mass/Vol] 50 mg/dL High 8-23 [facility] Comment on above: Performed By: #### I FX, URI, C4, PE, FKLLC, C3, PTHNCA #### [address] [address] Block Sealer: Rodrick Jones MD C-Reactive Proteinon 023 CRP [Mass/Vol] 163.6 mg/L High 0.0-5.0 [facility] Comment on above: Performed By: #### C RP, RENP, CBC, MG #### [address] [address] Block Sealer: Rodrick Jones MD CRP High sensitivity method [Mass/Vol] 163.6 mg/L High 0.0 - 5.0 mg/L [facility] Interpretation and review of laboratory results Abnormal [facility] C3on 06-21-2022 C3 167 mg/dL Normal 90-180 [facility] Comment on above: Performed By: #### I FX, URI, C4, PE, FKLLC, C3, PTHNCA #### [address] [address] Block Sealer: Rodrick Jones MD C3 Complementon 06-21-2022 Complement C3 167 mg/dL 90 - 180 mg/dL [facility] C4on 06-21-2022 C4 58 mg/dL High 10-40 [facility] Comment on above: Performed By: #### I FX, URI, C4, PE, FKLLC, C3, PTHNCA #### [address] [address] Block Sealer: Rodrick Jones MD C4 Complementon 06-21-2022 Complement C4 58 mg/dL High 10 - 40 mg/dL [facility] CBCon 06-21-2022 Erythrocyte distribution width (RBC) [Ratio] 13.7 % Normal 11.8-14.4 [facility] Comment on above: Performed By: #### C RP, RENP, CBC, MG #### [facility] [address] [place] [address] Block Sealer: Rodrick Jones MD Hematocrit (Bld) [Volume fraction] 43.7 % Normal 40.7-50.3 [facility] Comment on above: Performed By: #### C RP, RENP, CBC, MG #### [facility] [address] [place] [address] Block Sealer: Rodrick Jones MD Hemoglobin (Bld) [Mass/Vol] 15.2 g/dL Normal 13.0-17.0 [facility] Comment on above: Performed By: #### C RP, RENP, CBC, MG #### [facility] [address] [place] [address] Block Sealer: Rodrick Jones MD MCH (RBC) [Entitic mass] 30.9 pg Normal 25.2-33.5 [facility] Comment on above: Performed By: #### C RP, RENP, CBC, MG #### [facility] [address] [place] [address] Block Sealer: Rodrick Jones MD MCHC (RBC) [Mass/Vol] 34.8 g/dL Normal 28.4-34.8 [facility] Comment on above: Performed By: #### C RP, RENP, CBC, MG #### [address] [address] Block Sealer: Rodrick Jones MD MCV (RBC) [Entitic vol] 88.8 fL Normal 82.6-102.9 [facility] Comment on above: Performed By: #### C RP, RENP, CBC, MG #### [place] [address] Block Sealer: Rodrick Jones MD NRBC Automated 0.0 per 100 WBC Normal 0.0 [facility] Comment on above: Performed By: #### C RP, RENP, CBC, MG #### [place] [address] Block Sealer: Rodrick Jones MD Platelet mean volume (Bld) [Entitic vol] 10.4 fL Normal 8.1-13.5 [facility] Comment on above: Performed By: #### C RP, RENP, CBC, MG #### [place] [address] Block Sealer: Rodrick Jones MD Platelets (Bld) [#/Vol] 147 10*3/uL Normal 138-453 [facility] Comment on above: Performed By: #### C RP, RENP, CBC, MG #### [place] [address] Block Sealer: Rodrick Jones MD RBC (Bld) [#/Vol] 4.92 10*6/uL Normal 4.21-5.77 [facility] Comment on above: Performed By: #### C RP, RENP, CBC, MG #### [facility] [address] [place] [address] Block Sealer: Rodrick Jones MD WBC (Bld) [#/Vol] 8.0 10*3/uL Normal 3.5-11.3 [facility] Comment on above: Performed By: #### C RP, RENP, CBC, MG #### [facility] [place] [id number] Block Sealer: Rodrick Jones MD Hematocrit (Bld) [Volume fraction] 43.7 % 40.7 - 50.3 % [facility] Hemoglobin (Bld) [Mass/Vol] 15.2 g/dL 13.0 - 17.0 g/dL [facility] MCH (RBC) [Entitic mass] 30.9 pg 25.2 - 33.5 pg [facility] MCHC (RBC) [Mass/Vol] 34.8 g/dL 28.4 - 34.8 g/dL [facility] MCV (RBC) [Entitic vol] 88.8 fL 82.6 - 102.9 fL [facility] NRBC Automated 0.0 0.0 per 100 WBC [facility] Platelet distribution width (Bld) [Ratio] 13.7 % 11.8 - 14.4 % [facility] Platelet mean volume (Bld) [Entitic vol] 10.4 fL 8.1 - 13.5 fL [facility] Platelets (Bld) [#/Vol] 147 10*3/uL [facility] RBC (Bld) [#/Vol] 4.92 10*6/uL 4.21 - 5.7 7 m/uL [facility] WBC (Bld) [#/Vol] 8.0 10*3/uL [facility] CREATININE, RANDOM URINEon 0 06-21-2022 Creatinine, Ur 99.0 mg/dL 39.0 - 259.0 mg/dL [facility] Creatinine,Random Uron 06-21 Creatinine [Mass/Vol] 99.0 mg/dL Normal 39.0-259.0 [facility] Comment on above: Performed By: #### I FX, URI, C4, PE, FKLLC, C3, PTHNCA #### [id number] [place] [id number] Block Sealer: Rodrick Jones MD EKG 12 LeadOrdered By: Unkno wn Result on 06-21-2022 Atrial Rate 91 BPM [facility] P [place] 59 degrees [facility] P-R Interval 186 ms [facility] Q-T Interval 348 ms [facility] QRS Duration 92 ms [facility] QTc Calculation (Bazett) 428 ms [facility] R [place] -22 degrees [facility] T [place] 8 degrees [facility] Ventricular Rate 91 BPM [facility] EKG 12 Leadon 06-21-2022 [address] [address] MUSE [facility] Work Phone: EOSINOPHILS, URINEon 023 Eosinophil, Ur NONE SEEN NONE SEEN [facility] Hepatitis Acute [facility] 06-21 Hep A Ab,IgM Non-Reactive Normal [facility] Comment on above: Performed By: #### I FX, URI, C4, PE, FKLLC, C3, PTHNCA #### [facility] [address] [place] [address] [id number] Block Sealer: Rodrick Jones MD Hep B Core Ab,IgM Non-Reactive Normal [facility] Comment on above: Performed By: #### I FX, URI, C4, PE, FKLLC, C3, PTHNCA #### [facility] [address] [place] [address] [phone] Block Sealer: Rodrick Jones MD Hep B Surf Ag Non-Reactive Normal [facility] Comment on above: Performed By: #### I FX, URI, C4, PE, FKLLC, C3, PTHNCA #### [facility] [address] [place] [address] [id number] Block Sealer: Rodrick Jones MD Hep C Ab Non-Reactive Normal [facility] Comment on above: Result Comment: The hepatitis [...] URI, C4, PE, FKLLC, C3, PTHNCA #### [id number] [place] [address] Block Sealer: Rodrick Jones MD Hepatitis Panel, Acuteon HAV IgM Ql (S) Non-Reactive NONREACTIVE [facility] HBV core IgM Ql (S) Non-Reactive NONREACTIVE [facility] HBV surface Ag Ql (S) Non-Reactive NONREACTIVE [facility] HCV Ab Ql (S) Non-Reactive NONREACTIVE [facility] Magnesiumon 06-21-2022 Magnesium [Mass/Vol] 1.7 mg/dL Normal 1.6-2.6 [facility] Comment on above: Performed By: #### C RP, RENP, CBC, MG #### [id number] [address] [place] [address] Block Sealer: Rodrick Jones MD Magnesium [Mass/Vol] 1.7 mg/dL 1.6 - 2 .6 mg/dL [facility] No Panel Informationon 06-21 [facility] Interpretation and review of laboratory results Abnormal [facility] OSMOLALITY, URINEon 06-22-19 23 Osmolality, Ur 361 [facility] Osmolality, Urineon 06-22-19 23 Osmolality - Urine 361 mOsm/kg Normal 80-1300 [facility] Comment on above: Performed By: #### I FX, URI, C4, PE, FKLLC, C3, PTHNCA #### [id number] [place] [address] Block Sealer: Rodrick Jones MD POC Glucose Fingerstickon Glucose [Mass/Vol] 326 mg/dL High 75 - 110 mg/dL [facility] Interpretation and review of laboratory results Abnormal [facility] Glucose [Mass/Vol] 330 mg/dL High 75 - 110 mg/dL [facility] Interpretation and review of laboratory results Abnormal [facility] Glucose [Mass/Vol] 273 mg/dL High 75 - 110 mg/dL [facility] Interpretation and review of laboratory results Abnormal [facility] Glucose [Mass/Vol] 248 mg/dL High 75 - 110 mg/dL [facility] Interpretation and review of laboratory results Abnormal [facility] POTASSIUM, URINE, RANDOMon 0 06-21-2022 Potassium, Ur 19.1 mmol/L [facility] Potassium,Random Uron 2022 Potassium [Moles/Vol] 19.1 mmol/L Normal [facility] Comment on above: Result Comment: No n ormal range established. Performed By: #### I FX, URI, C4, PE, FKLLC, C3, PTHNCA #### [facility] [address] [place] [address] Block Sealer: Rodrick Jones MD Prot. Electrophoresis, Uron 06-21-2022 Type of Specimen .Random Urine Normal [facility] Comment on above: Performed By: #### I FX, URI, C4, PE, FKLLC, C3, PTHNCA #### [facility] [address] [place] [address] Block Sealer: Rodrick Jones MD Renal Function Panelon 06-21 Albumin [Mass/Vol] 3.0 g/dL Low 3.5-5.2 [facility] Comment on above: Performed By: #### C RP, RENP, CBC, MG #### [facility] [address] [place] [address] Block Sealer: Rodrick Jones MD Anion gap [Moles/Vol] 17 mmol/L Normal 9-17 [facility] Comment on above: Performed By: #### C RP, RENP, CBC, MG #### [facility] [address] [place] [address] Block Sealer: Rodrick Jones MD Calcium [Mass/Vol] 8.6 mg/dL Normal 8.6-10.4 [facility] Comment on above: Performed By: #### C RP, RENP, CBC, MG #### [facility] [address] [place] [address] Block Sealer: Rordick Jones MD Chloride [Moles/Vol] 93 mmol/L Low 98-107 [facility] Comment on above: Performed By: #### C RP, RENP, CBC, MG #### [facility] [address] [place] [address] Block Sealer: Rodrick Jones MD CO2 [Moles/Vol] 16 mmol/L Low 20-31 [facility] Comment on above: Performed By: #### C RP, RENP, CBC, MG #### [facility] [address] [place] [address] Block Sealer: Rodrick Jones MD Creatinine [Mass/Vol] 4.50 mg/dL High 0.70-1.20 [facility] Comment on above: Performed By: #### C RP, RENP, CBC, MG #### [facility] [address] [place] [address] Block Sealer: Rodrick Jones MD GFR/1.73 sq M.predicted among non-blacks MDRD (S/P/Bld) [Vol rate/Area] 14 mL/min/{1.73_m2} Low >60 [facility] Comment on above: Result Comment: These [...] RP, RENP, CBC, MG #### [facility] [address] [place] [address] Block Sealer: Rodrick Jones MD Glucose [Mass/Vol] 283 mg/dL High 70-99 [facility] Comment on above: Performed By: #### C RP, RENP, CBC, MG #### [facility] [address] [place] [address] Block Sealer: Rodrick Jones MD Phosphorus, Inorg. 4.1 mg/dL Normal 2.5-4.5 [facility] Comment on above: Performed By: #### C RP, RENP, CBC, MG #### [facility] [address] [place] [address] Block Sealer: Rodrick Jones MD Potassium [Moles/Vol] 5.1 mmol/L Normal 3.7-5.3 [facility] Comment on above: Performed By: #### C RP, RENP, CBC, MG #### [facility] [address] [place] [address] Block Sealer: Rodrick Jones MD Sodium [Moles/Vol] 126 mmol/L Low 135-144 [facility] Comment on above: Performed By: #### C RP, RENP, CBC, MG #### [facility] [address] [place] [address] Block Sealer: Rodrick Jones MD Urea nitrogen [Mass/Vol] 51 mg/dL High 8-23 [facility] Comment on above: Performed By: #### C RP, RENP, CBC, MG #### [facility] [address] [place] [address] Block Sealer: Rodrick Jones MD Albumin [Mass/Vol] 3 g/dL Low 3.5 - 5.2 g/dL [facility] Anion gap [Moles/Vol] 17 mmol/L 9 - 17 mmol/L [facility] [employer] Calcium [Mass/Vol] 8.6 mg/dL 8.6 - 10. 4 mg/dL [facility] Chloride [Moles/Vol] 93 mmol/L Low 98 - 10 7 mmol/L [facility] [employer] CO2 [Moles/Vol] 16 mmol/L Low 20 - 31 mmol/L [facility] Creatinine [Mass/Vol] 4.5 mg/dL High 0.70 - 1.20 mg/dL [facility] GFR/1.73 sq M.predicted MDRD (S/P/Bld) [Vol rate/Area] 14 mL/min/{1.73_m2} Low - PINF [facility] Glucose [Mass/Vol] 283 mg/dL High 70 - 99 mg/dL [facility] Interpretation and review of laboratory results Abnormal [facility] Phosphate [Mass/Vol] 4.1 mg/dL 2.5 - 4 .5 mg/dL [facility] Potassium [Moles/Vol] 5.1 mmol/L 3.7 - 5.3 mmol/L [facility] Sodium [Moles/Vol] 126 mmol/L Low 135 - 144 mmol/L [facility] Urea nitrogen [Mass/Vol] 51 mg/dL High 8 - 23 mg/dL [facility] SODIUM, URINE, RANDOMon 06-09 Sodium (U) [Moles/Vol] 41 mmol/L [facility] Sodium, Random Uron 06-22-19 Sodium (U) [Moles/Vol] 41 mmol/L Normal [facility] Comment on above: Result Comment: No n ormal range established. Performed By: #### I FX, URI, C4, PE, FKLLC, C3, PTHNCA #### [facility] [address] [place] [id number] Block Sealer: Rodrick Jones MD UA w/Reflex Cultureon 2022 Bilirubin, SemiQt,Ur Negative Normal NEG [facility] Comment on above: Performed By: #### B MP, CBC #### [address] [address] Block Sealer: Rodrick Jones MD Blood, Urine LARGE Abnormal NEG [facility] Comment on above: Performed By: #### B MP, CBC #### [facility] [address] [place] [address] Block Sealer: Rodrick Jones MD Clarity (U) Cloudy Abnormal CLEAR [facility] Comment on above: Performed By: #### B MP, CBC #### [facility] [address] [place] [address] Block Sealer: Rodrick Jones MD Color (U) Gloster Abnormal YEL [facility] Comment on above: Result Comment: INTE RPRET WITH CAUTION DUE TO INTENSE COLOR OF URINE. Performed By: #### B MP, CBC #### [address] [address] Block Sealer: Rodrick Jones MD Glucose Ql (U) Negative Normal NEG [facility] Comment on above: Performed By: #### B MP, CBC #### [address] [address] Block Sealer: Rodrick Jones MD Ketones Ql (U) Negative Normal NEG [facility] Comment on above: Performed By: #### B MP, CBC #### [address] [address] Block Sealer: Rodrick Jones MD Leukocyte esterase Test strip Ql (U) SMALL Abnormal NEG [facility] Comment on above: Performed By: #### B MP, CBC #### [facility] [address] [place] [address] Block Sealer: Rodrick Jones MD Nitrite,Ur Negative Normal NEG [facility] Comment on above: Performed By: #### B MP, CBC #### [facility] [address] [place] [address] Block Sealer: Rodrick Jones MD PH,Ur 5.5 Normal 5.0-8.0 [facility] Comment on above: Performed By: #### B MP, CBC #### [facility] [address] [place] [address] Block Sealer: Rodrick Jones MD Protein Ql (U) 4+ Abnormal NEG [facility] Comment on above: Performed By: #### B MP, CBC #### [facility] [address] [place] [address] Block Sealer: Rodrick Jones MD Spec. [place],Ur 1.010 Normal 1.005-1.030 [facility] Comment on above: Performed By: #### B MP, CBC #### [facility] [address] [place] [address] Block Sealer: Rodrick Jones MD Urobilinogen,Ur Normal Normal NORM [facility] Comment on above: Performed By: #### B MP, CBC #### [address] [address] Block Sealer: Rodrick Jones MD Urinalysis,Microon 3 Bacteria FEW Abnormal NONE [facility] Comment on above: Performed By: #### B MP, CBC #### [facility] [address] [place] [address] Block Sealer: Rodrick Jones MD Casts 0 TO 2 Normal 0-2 [facility] Comment on above: Result Comment: ALIS BALDWIN Performed By: #### B MP, CBC #### [address] [address] Block Sealer: Rodrick Jones MD Epithelial cells LM Ql (Urine sed) 5 TO 10 Normal 0-5 [facility] Comment on above: Performed By: #### B MP, CBC #### [facility] [address] [place], [place] [id number] Block Sealer: Rodrick Jones MD Urine RBC's TOO NUMEROUS TO COUNT Normal 0-2 [facility] Comment on above: Performed By: #### B MP, CBC #### [facility] [address], [place] [id number] Block Sealer: Rodrick Jones MD Urine WBC's 5 TO 10 Normal 0-5 [facility] Comment on above: Performed By: #### B MP, CBC #### [facility] [address], [place] [id number] Block Sealer: Rodrick Jones MD Basic Metabolic Panelon 06-09 Anion gap [Moles/Vol] 19 mmol/L High 9 - 17 mmol/L [facility] [employer] Calcium [Mass/Vol] 9.0 mg/dL 8.6 - 10. 4 mg/dL [facility] Chloride [Moles/Vol] 93 mmol/L Low 98 - 10 7 mmol/L [facility] CO2 [Moles/Vol] 15 mmol/L Low 20 - 31 mmol/L [facility] Creatinine [Mass/Vol] 3.65 mg/dL High 0.70 - 1.20 mg/dL [facility] GFR/1.73 sq M.predicted MDRD (S/P/Bld) [Vol rate/Area] 18 mL/min/{1.73_m2} Low - PINF [facility] [employer] Glucose [Mass/Vol] 152 mg/dL High 70 - 99 mg/dL [facility] Interpretation and review of laboratory results Abnormal [facility] [employer] Potassium [Moles/Vol] 4.3 mmol/L 3.7 - 5.3 mmol/L [facility] Sodium [Moles/Vol] 127 mmol/L Low 135 - 144 mmol/L [facility] Urea nitrogen [Mass/Vol] 49 mg/dL High 8 - 23 mg/dL [facility] Basic Metabolic Profon 06-20 Anion gap [Moles/Vol] 19 mmol/L High 9-17 [facility] Comment on above: Performed By: #### I FX, URI, C4, PE, FKLLC, C3, PTHNCA #### [address] [address] Block Sealer: Rodrick Jones MD Calcium [Mass/Vol] 9.0 mg/dL Normal 8.6-10.4 [facility] Comment on above: Performed By: #### I FX, URI, C4, PE, FKLLC, C3, PTHNCA #### [address] [address] Block Sealer: Rodrick Jones MD Chloride [Moles/Vol] 93 mmol/L Low 98-107 [facility] Comment on above: Performed By: #### I FX, URI, C4, PE, FKLLC, C3, PTHNCA #### [address] [address] Block Sealer: Rodrick Jones MD CO2 [Moles/Vol] 15 mmol/L Low 20-31 [facility] Comment on above: Performed By: #### I FX, URI, C4, PE, FKLLC, C3, PTHNCA #### [address] [address] Block Sealer: Rodrick Jones MD Creatinine [Mass/Vol] 3.65 mg/dL High 0.70-1.20 [facility] Comment on above: Performed By: #### I FX, URI, C4, PE, FKLLC, C3, PTHNCA #### [address] [address] Block Sealer: Rodrick Jones MD GFR/1.73 sq M.predicted among non-blacks MDRD (S/P/Bld) [Vol rate/Area] 18 mL/min/{1.73_m2} Low >60 [facility] Comment on above: Result Comment: These [...] URI, C4, PE, FKLLC, C3, PTHNCA #### [address] [address] Block Sealer: Rodrick Jones MD Glucose [Mass/Vol] 152 mg/dL High 70-99 [facility] Comment on above: Performed By: #### I FX, URI, C4, PE, FKLLC, C3, PTHNCA #### [address] [address] Block Sealer: Rodrick Jones MD Potassium [Moles/Vol] 4.3 mmol/L Normal 3.7-5.3 [facility] Comment on above: Performed By: #### I FX, URI, C4, PE, FKLLC, C3, PTHNCA #### [address] [address] Block Sealer: Rodrick Jones MD Sodium [Moles/Vol] 127 mmol/L Low 135-144 [facility] Comment on above: Performed By: #### I FX, URI, C4, PE, FKLLC, C3, PTHNCA #### [address] [address] Block Sealer: Rodrick Jonse MD Urea nitrogen [Mass/Vol] 49 mg/dL High 8-23 [facility] Comment on above: Performed By: #### I FX, URI, C4, PE, FKLLC, C3, PTHNCA #### [facility] [address] [place] [address] Block Sealer: Rodrick Jones MD CBC with Auto Differentialon 06-20-2022 Absolute Eos # 0.04 [facility] Absolute Immature Granulocyte 0.07 [facility] Absolute Lymph # 0.73 Low [facility] Absolute Becker # 1.00 [facility] Basophils (Bld) [#/Vol] 0.07 10*3/uL [facility] Basophils/100 WBC (Bld) 1 % 0 - 2 % [facility] Eosinophils/100 WBC (Bld) 0 % Low 1 - 4 % [facility] Hematocrit (Bld) [Volume fraction] 42.2 % 40.7 - 50.3 % [facility] Hemoglobin (Bld) [Mass/Vol] 13.7 g/dL 13.0 - 17.0 g/dL [facility] Immature granulocytes/100 WBC (Bld) 1 % High 0 [facility] Interpretation and review of laboratory results Abnormal [facility] Lymphocytes/100 WBC (Bld) 6 % Low 24 - 43 % [facility] MCH (RBC) [Entitic mass] 30.4 pg 25.2 - 33.5 pg [facility] MCHC (RBC) [Mass/Vol] 32.5 g/dL 28.4 - 34.8 g/dL [facility] MCV (RBC) [Entitic vol] 93.6 fL 82.6 - 102.9 fL [facility] Monocytes/100 WBC (Bld) 8 % 3 - 12 % [facility] NRBC Automated 0.0 0.0 per 100 WBC [facility] Platelet distribution width (Bld) [Ratio] 13.8 % 11.8 - 14.4 % [facility] Platelet mean volume (Bld) [Entitic vol] 11.1 fL 8.1 - 13.5 fL [facility] Platelets (Bld) [#/Vol] 199 10*3/uL [facility] RBC (Bld) [#/Vol] 4.51 10*6/uL 4.21 - 5.7 7 m/uL [facility] Seg Neutrophils 85 % High 36 - 65 % [facility] Segs Absolute 10.81 High [facility] WBC (Bld) [#/Vol] 12.7 10*3/uL High [facility] CBC with Diffon 06-20-2022 Abs. Basophil 0.07 k/uL Normal 0.00-0.20 [facility] Comment on above: Performed By: #### I FX, URI, C4, PE, FKLLC, C3, PTHNCA #### [place] [address] Block Sealer: Rodrick Jones MD Abs.Imm.Granulocyte 0.07 k/uL Normal 0.00-0.30 [facility] Comment on above: Performed By: #### I FX, URI, C4, PE, FKLLC, C3, PTHNCA #### [facility] [address] [place] [address] Block Sealer: Rodrick Jones MD Abs.Neutrophil (Seg) 10.81 k/uL High 1.50-8.10 [facility] Comment on above: Performed By: #### I FX, URI, C4, PE, FKLLC, C3, PTHNCA #### [facility] [address] [place] [address] Block Sealer: Rodrick Jones MD Basophils/100 WBC (Bld) 1 % Normal 0-2 [facility] Comment on above: Performed By: #### I FX, URI, C4, PE, FKLLC, C3, PTHNCA #### [address] [address] Block Sealer: Rodrick Jones MD Eosinophils (Bld) [#/Vol] 0.04 10*3/uL Normal 0.00-0.44 [facility] Comment on above: Performed By: #### I FX, URI, C4, PE, FKLLC, C3, PTHNCA #### [address] [address] Block Sealer: Rodrick Jones MD Eosinophils/100 WBC (Bld) 0 % Low 1-4 [facility] Comment on above: Performed By: #### I FX, URI, C4, PE, FKLLC, C3, PTHNCA #### [address] [address] Block Sealer: Rodrick Jones MD Erythrocyte distribution width (RBC) [Ratio] 13.8 % Normal 11.8-14.4 [facility] Comment on above: Performed By: #### I FX, URI, C4, PE, FKLLC, C3, PTHNCA #### [place] [address] Block Sealer: Rodrick Jones MD Hematocrit (Bld) [Volume fraction] 42.2 % Normal 40.7-50.3 [facility] Comment on above: Performed By: #### I FX, URI, C4, PE, FKLLC, C3, PTHNCA #### [place] [address] Block Sealer: Rodrick Jones MD Hemoglobin (Bld) [Mass/Vol] 13.7 g/dL Normal 13.0-17.0 [facility] Comment on above: Performed By: #### I FX, URI, C4, PE, FKLLC, C3, PTHNCA #### [address] [address] Block Sealer: Rodrick Jones MD Immature granulocytes/100 WBC (Bld) 1 % High 0 [facility] Comment on above: Performed By: #### I FX, URI, C4, PE, FKLLC, C3, PTHNCA #### [address] [address] Block Sealer: Rodrick Jones MD Lymphocytes (Bld) [#/Vol] 0.73 10*3/uL Low 1.10-3.70 [facility] Comment on above: Performed By: #### I FX, URI, C4, PE, FKLLC, C3, PTHNCA #### [address] [address] Block Sealer: Rodrick Jones MD Lymphocytes/100 WBC (Bld) 6 % Low 24-43 [facility] Comment on above: Performed By: #### I FX, URI, C4, PE, FKLLC, C3, PTHNCA #### [address] [address] Block Sealer: Rodrick Jones MD MCH (RBC) [Entitic mass] 30.4 pg Normal 25.2-33.5 [facility] Comment on above: Performed By: #### I FX, URI, C4, PE, FKLLC, C3, PTHNCA #### [address] [address] Block Sealer: Rodrick Jones MD MCHC (RBC) [Mass/Vol] 32.5 g/dL Normal 28.4-34.8 [facility] Comment on above: Performed By: #### I FX, URI, C4, PE, FKLLC, C3, PTHNCA #### [address] [address] Block Sealer: Rodrick Jones MD MCV (RBC) [Entitic vol] 93.6 fL Normal 82.6-102.9 [facility] Comment on above: Performed By: #### I FX, URI, C4, PE, FKLLC, C3, PTHNCA #### [address] [address] Block Sealer: Rodrick Jones MD Monocytes (Bld) [#/Vol] 1.00 10*3/uL Normal 0.10-1.20 [facility] Comment on above: Performed By: #### I FX, URI, C4, PE, FKLLC, C3, PTHNCA #### [address] [address] Block Sealer: Rodrick Jones MD Monocytes/100 WBC (Bld) 8 % Normal 3-12 [facility] Comment on above: Performed By: #### I FX, URI, C4, PE, FKLLC, C3, PTHNCA #### [address] [address] Block Sealer: Rodrick Jones MD Neutrophil (Seg) 85 % High 36-65 [facility] Comment on above: Performed By: #### I FX, URI, C4, PE, FKLLC, C3, PTHNCA #### [address] [address] Block Sealer: Rodrick Jones MD NRBC Automated 0.0 per 100 WBC Normal 0.0 [facility] Comment on above: Performed By: #### I FX, URI, C4, PE, FKLLC, C3, PTHNCA #### [address] [address] Block Sealer: Rodrick Jones MD Platelet mean volume (Bld) [Entitic vol] 11.1 fL Normal 8.1-13.5 [facility] Comment on above: Performed By: #### I FX, URI, C4, PE, FKLLC, C3, PTHNCA #### [address] [address] Block Sealer: Rodrick Jones MD Platelets (Bld) [#/Vol] 199 10*3/uL Normal 138-453 [facility] Comment on above: Performed By: #### I FX, URI, C4, PE, FKLLC, C3, PTHNCA #### [address] [id number] Block Sealer: Rodrick Jones MD RBC (Bld) [#/Vol] 4.51 10*6/uL Normal 4.21-5.77 [facility] Comment on above: Performed By: #### I FX, URI, C4, PE, FKLLC, C3, PTHNCA #### [address] [id number] Block Sealer: Rodrick Jones MD WBC (Bld) [#/Vol] 12.7 10*3/uL High 3.5-11.3 [facility] Comment on above: Performed By: #### I FX, URI, C4, PE, FKLLC, C3, PTHNCA #### [place] [address] Block Sealer: Rodrick Jones MD COVID-19, Rapidon 06-20-2022 SARS-CoV-2 (COVID-19) RdRp gene BENTLEY+probe Ql (Resp) Not detected Not Detected [facility] Specimen Description .NASOPHARYNGEAL SWAB [facility] Comp Metabolic Pr/rfx MGon 0 06-20-2022 Albumin [Mass/Vol] 3.5 g/dL Normal 3.5-5.2 [facility] Comment on above: Performed By: #### I FX, URI, C4, PE, FKLLC, C3, PTHNCA #### [address] [id number] Block Sealer: Rodrick Jones MD Albumin/Glob Ratio 0.8 Low 1.0-2.5 [facility] Comment on above: Performed By: #### I FX, URI, C4, PE, FKLLC, C3, PTHNCA #### [address] [address] Block Sealer: Rodrick Jones MD Alkaline Phos 93 U/L Normal 40-129 [facility] Comment on above: Performed By: #### I FX, URI, C4, PE, FKLLC, C3, PTHNCA #### [address] [address] Block Sealer: Rodrick Jones MD ALT [Catalytic activity/Vol] 13 U/L Normal 5-41 [facility] Comment on above: Performed By: #### I FX, URI, C4, PE, FKLLC, C3, PTHNCA #### [address] [address] Block Sealer: Rodrick Jones MD Anion gap [Moles/Vol] 17 mmol/L Normal 9-17 [facility] Comment on above: Performed By: #### I FX, URI, C4, PE, FKLLC, C3, PTHNCA #### [address] [address] Block Sealer: Rodrick Jones MD AST [Catalytic activity/Vol] 21 U/L Normal <40 [facility] Comment on above: Performed By: #### I FX, URI, C4, PE, FKLLC, C3, PTHNCA #### [address] [address] Block Sealer: Rodrick Jones MD Bilirubin [Mass/Vol] 0.7 mg/dL Normal 0.3-1.2 [facility] Comment on above: Performed By: #### I FX, URI, C4, PE, FKLLC, C3, PTHNCA #### [address] [address] Block Sealer: Rodrick Jones MD Calcium [Mass/Vol] 9.1 mg/dL Normal 8.6-10.4 [facility] Comment on above: Performed By: #### I FX, URI, C4, PE, FKLLC, C3, PTHNCA #### [address] [address] Block Sealer: Rodrick Jones MD Chloride [Moles/Vol] 92 mmol/L Low 98-107 [facility] Comment on above: Performed By: #### I FX, URI, C4, PE, FKLLC, C3, PTHNCA #### [address] [address] Block Sealer: Rodrick Jones MD CO2 [Moles/Vol] 19 mmol/L Low 20-31 [facility] Comment on above: Performed By: #### I FX, URI, C4, PE, FKLLC, C3, PTHNCA #### [address] [address] Block Sealer: Rodrick Jones MD Creatinine [Mass/Vol] 3.64 mg/dL High 0.70-1.20 [facility] Comment on above: Performed By: #### I FX, URI, C4, PE, FKLLC, C3, PTHNCA #### [address] [address] Block Sealer: Rodrick Jones MD GFR/1.73 sq M.predicted among non-blacks MDRD (S/P/Bld) [Vol rate/Area] 18 mL/min/{1.73_m2} Low >60 [facility] Comment on above: Result Comment: These [...] URI, C4, PE, FKLLC, C3, PTHNCA #### [address] [address] Block Sealer: Rodrick Jones MD Glucose [Mass/Vol] 145 mg/dL High 70-99 [facility] Comment on above: Performed By: #### I FX, URI, C4, PE, FKLLC, C3, PTHNCA #### [address] [address] Block Sealer: Rodrick Jones MD Potassium [Moles/Vol] 4.3 mmol/L Normal 3.7-5.3 [facility] Comment on above: Performed By: #### I FX, URI, C4, PE, FKLLC, C3, PTHNCA #### [address] [address] Block Sealer: Rodrick Jones MD Protein [Mass/Vol] 7.8 g/dL Normal 6.4-8.3 [facility] Comment on above: Performed By: #### I FX, URI, C4, PE, FKLLC, C3, PTHNCA #### [address] [address] Block Sealer: Rodrick Jones MD Sodium [Moles/Vol] 128 mmol/L Low 135-144 [facility] Comment on above: Performed By: #### I FX, URI, C4, PE, FKLLC, C3, PTHNCA #### [address] [address] Block Sealer: Rodrick Jones MD Urea nitrogen [Mass/Vol] 47 mg/dL High 8-23 [facility] Comment on above: Performed By: #### I FX, URI, C4, PE, FKLLC, C3, PTHNCA #### [address] [address] Block Sealer: Rodrick Jones MD Comprehensive Metabolic Pane l w/ Reflex to MGon 06-20-2022 Albumin [Mass/Vol] 3.5 g/dL 3.5 - 5.2 g/dL [facility] Albumin/Globulin [Mass ratio] 0.8 {ratio} Low 1.0 - 2.5 [facility] ALP [Catalytic activity/Vol] 93 U/L 40 - 129 U/L [facility] ALT [Catalytic activity/Vol] 13 U/L 5 - 41 U/L [facility] Anion gap [Moles/Vol] 17 mmol/L 9 - 17 mmol/L [facility] AST [Catalytic activity/Vol] 21 U/L NINF - 40 U/L [facility] Bilirubin [Mass/Vol] 0.7 mg/dL 0.3 - 1 .2 mg/dL [facility] Calcium [Mass/Vol] 9.1 mg/dL 8.6 - 10. 4 mg/dL [facility] Chloride [Moles/Vol] 92 mmol/L Low 98 - 10 7 mmol/L [facility] CO2 [Moles/Vol] 19 mmol/L Low 20 - 31 mmol/L [facility] Creatinine [Mass/Vol] 3.64 mg/dL High 0.70 - 1.20 mg/dL [facility] GFR/1.73 sq M.predicted MDRD (S/P/Bld) [Vol rate/Area] 18 mL/min/{1.73_m2} Low - PINF [facility] Glucose [Mass/Vol] 145 mg/dL High 70 - 99 mg/dL [facility] Interpretation and review of laboratory results Abnormal [facility] Potassium [Moles/Vol] 4.3 mmol/L 3.7 - 5.3 mmol/L [facility] Protein [Mass/Vol] 7.8 g/dL 6.4 - 8.3 g/dL [facility] Sodium [Moles/Vol] 128 mmol/L Low 135 - 144 mmol/L [facility] Urea nitrogen [Mass/Vol] 47 mg/dL High 8 - 23 mg/dL [facility] Flu A/B Ag Detectionon 06-20 Flu A Ag Detection Negative Normal NEG [facility] Comment on above: Result Comment: for Influenza A Antigen Performed By: #### C RP, RENP, CBC, MG #### [id number] [address] [place] [address] [id number] Block Sealer: Rodrick Jones MD Flu B Ag Detection Negative Normal NEG [facility] Comment on above: Result Comment: for Influenza B Antigen. Performed By: #### C RP, RENP, CBC, MG #### [id number] [address] [place] [address] [id number] Block Sealer: Rodrick Jones MD Lactate, Sepsison 06-20-2022 Lactic Acid,Sep Wbld 1.1 mmol/L Normal 0.5-1.9 [facility] Comment on above: Performed By: #### C RP, RENP, CBC, MG #### [id number] [address] [place] [address] [id number] Block Sealer: Rodrick Jones MD Lactic Acid, Sepsis, Whole Blood 1.1 mmol/L 0.5 - 1.9 mmol/L [facility] Lactic Acid,Sep Wbld 2.1 mmol/L High 0.5-1.9 [facility] Comment on above: Performed By: #### I FX, URI, C4, PE, FKLLC, C3, PTHNCA #### [facility] [address] [place] [id number] Block Sealer: Rodrick Jones MD Interpretation and review of laboratory results Abnormal [facility] Lactic Acid, Sepsis, Whole Blood 2.1 mmol/L High 0.5 - 1.9 mmol/L [facility] Microscopic Urinalysison Bacteria, UA FEW Abnormal None [facility] Casts UA 0 TO 2 [facility] Casts UA COARSELY GRANULAR [facility] Epithelial Cells UA 5 TO 10 [facility] Interpretation and review of laboratory results Abnormal [facility] RBC clumps Auto (Urine sed) [#/Area] TOO NUMEROUS TO COUNT [facility] WBC, UA 5 TO 10 [facility] Bacteria, UA MANY Abnormal None [facility] Casts UA 0 TO 2 [facility] Casts UA COARSELY GRANULAR [facility] Epithelial Cells UA None [facility] Interpretation and review of laboratory results Abnormal [facility] RBC clumps Auto (Urine sed) [#/Area] TOO NUMEROUS TO COUNT [facility] WBC, UA 5 TO 10 [facility] No Panel Informationon 06-20 Radiology Study observation (narrative) [facility] Work Phone: POC Glucose Fingerstickon Glucose [Mass/Vol] 183 mg/dL High 75 - 110 mg/dL [facility] Interpretation and review of laboratory results Abnormal [facility] Glucose [Mass/Vol] 163 mg/dL High 75 - 110 mg/dL [facility] Interpretation and review of laboratory results Abnormal [facility] Glucose [Mass/Vol] 129 mg/dL High 75 - 110 mg/dL [facility] Interpretation and review of laboratory results Abnormal [facility] Glucose [Mass/Vol] 92 mg/dL 75 - 110 mg/dL [facility] RAPID INFLUENZA A/B ANTIGENS on 06-20-2022 FLUAV Ag Ql (Unsp spec) Negative NEGATIVE [facility] FLUBV Ag Ql (Unsp spec) Negative NEGATIVE [facility] [id number] 06-20-2022 SARS-CoV-2 (COVID-19) RNA BENTLEY+probe Ql (Unsp spec) Not detected Normal [facility] Comment on above: Result Comment: Rapid NAAT: [...] management decisions. Fact sheet for Healthcare Providers: https://www.fda.gov/media/757218/download Fact sheet for Patients: https://www.fda.gov/media/200307/download Methodology: Isothermal Nucleic Acid Amplification Performed By: #### I FX, URI, C4, PE, FKLLC, C3, PTHNCA #### [facility] [address] [place] [id number] Block Sealer: Rodrick Jones MD Troponinon 06-20-2022 Troponin, High Sens 51 ng/L High 0-22 [facility] Comment on above: Result Comment: High Sensitivity Troponin values cannot be compared with other Troponin methodologies. Performed By: #### I FX, URI, C4, PE, FKLLC, C3, PTHNCA #### [id number] [address] [place], [place] [id number] Block Sealer: Rodrick Jones MD Troponin, High Sens 52 ng/L Critically high [address] [place] [address] Comment on above: Result Comment: High Sensitivity Troponin values cannot be compared with other Troponin methodologies. Performed By: #### I FX, URI, C4, PE, FKLLC, C3, PTHNCA #### [id number] [address] [place], [place] [phone] Block Sealer: Rodrick Jones MD Interpretation and review of laboratory results Abnormal [facility] [employer] Troponin I.cardiac DL <= 0.01 ng/mL [Mass/Vol] 51 ng/L High 0 - 22 ng/L [facility] Interpretation and review of laboratory results Abnormal [facility] Troponin I.cardiac DL <= 0.01 ng/mL [Mass/Vol] 52 ng/L Critically high 0 - 22 ng/L [facility] UA w/Reflex Cultureon 2022 Bilirubin, SemiQt,Ur Negative Normal NEG [facility] Comment on above: Performed By: #### B MP, CBC #### [address] [address] Block Sealer: Rodrick Jones MD Blood, Urine LARGE Abnormal NEG [facility] Comment on above: Performed By: #### B MP, CBC #### [address] [address] Block Sealer: Rodrick Jones MD Clarity (U) Cloudy Abnormal CLEAR [facility] Comment on above: Performed By: #### B MP, CBC #### [address] [address] Block Sealer: Rodrick Jones MD Color (U) Red Abnormal YEL [facility] Comment on above: Result Comment: INTE RPRET WITH CAUTION DUE TO INTENSE COLOR OF URINE. Performed By: #### B MP, CBC #### [address] [address] Block Sealer: Rodrick Jones MD Glucose Ql (U) Negative Normal NEG [facility] Comment on above: Performed By: #### B MP, CBC #### [facility] [address] [place] [address] Block Sealer: Rodrick Jones MD Ketones Ql (U) Negative Normal NEG [facility] Comment on above: Performed By: #### B MP, CBC #### [facility] [address] [place] [address] Block Sealer: Rodrick Jones MD Leukocyte esterase Test strip Ql (U) SMALL Abnormal NEG [facility] Comment on above: Performed By: #### B MP, CBC #### [facility] [address] [place] [address] Block Sealer: Rodrick Jones MD Nitrite,Ur Positive Abnormal NEG [facility] Comment on above: Performed By: #### B MP, CBC #### [facility] [address] [place] [address] Block Sealer: Rodrick Jones MD PH,Ur 5.0 Normal 5.0-8.0 [facility] Comment on above: Performed By: #### B MP, CBC #### [facility] [address] [place] [address] Block Sealer: Rodrick Jones MD Protein Ql (U) 4+ Abnormal NEG [facility] Comment on above: Performed By: #### B MP, CBC #### [facility] [address] [place] [address] Block Sealer: Rodrick Jones MD Spec. [place],Ur 1.015 Normal 1.005-1.030 [facility] Comment on above: Performed By: #### B MP, CBC #### [facility] [address] [place] [address] Block Sealer: Rodrick Jones MD Urobilinogen,Ur Normal Normal NORM [facility] Comment on above: Performed By: #### B MP, CBC #### [facility] [address] [place] [address] Block Sealer: Rodrick Jones MD Urinalysis with Reflex to Cu ltureon 06-20-2022 Bilirubin Urine Negative NEGATIVE [facility] [employer] Color, UA Gloster Abnormal Yellow [facility] Glucose Auto test strip (U) [Mass/Vol] Negative NEGATIVE [facility] Interpretation and review of laboratory results Abnormal [facility] Ketones (U) [Mass/Vol] Negative NEGATIVE [facility] Leukocyte esterase Auto test strip Ql (U) SMALL Abnormal NEGATIVE [facility] Nitrite Auto test strip Ql (U) Negative NEGATIVE [facility] Protein (U) [Mass/Vol] 5.5 mg/dL 5.0 - 8.0 J[facility]ILAH N [facility] Protein (U) [Mass/Vol] 4+ Abnormal NEGATIVE JAMILAH [facility] Specific [place], UA 1.010 1.005 - 1.030 B ON [facility] Turbidity UA Cloudy Abnormal Clear [facility] Urine Hgb LARGE Abnormal NEGATIVE [facility] Urobilinogen, Urine Normal Normal [facility] Bilirubin Urine Negative NEGATIVE [facility] Color, UA Red Abnormal Yellow [facility] Glucose Auto test strip (U) [Mass/Vol] Negative NEGATIVE [facility] Interpretation and review of laboratory results Abnormal [facility] Ketones (U) [Mass/Vol] Negative NEGATIVE [facility] Leukocyte esterase Auto test strip Ql (U) SMALL Abnormal NEGATIVE [facility] Nitrite Auto test strip Ql (U) Positive Abnormal NEGATIVE [facility] Protein (U) [Mass/Vol] 5.0 mg/dL 5.0 - 8.0 J[facility]AH N [facility] Protein (U) [Mass/Vol] 4+ Abnormal NEGATIVE [facility] Specific [place], UA 1.015 1.005 - 1.030 B ON [facility] Turbidity UA Cloudy Abnormal Clear [facility] Urine Hgb LARGE Abnormal NEGATIVE [facility] Urobilinogen, Urine Normal Normal [facility] Urinalysis,Microon 3 Bacteria MANY Abnormal NONE [facility] Comment on above: Performed By: #### B MP, CBC #### [id number] [address] [place] [address] Block Sealer: Rodrick Jones MD Casts 0 TO 2 Normal 0-2 [facility] Comment on above: Result Comment: COAR MEL BALDWIN Performed By: #### B MP, CBC #### [id number] [address] [place] [address] Block Sealer: Rodrick Jones MD Epithelial cells LM Ql (Urine sed) None Normal 0-5 [facility] Comment on above: Performed By: #### B MP, CBC #### [facility] [address] [place], [place] [id number] Block Sealer: Rodrick Jones MD Urine RBC's TOO NUMEROUS TO COUNT Normal 0-2 [facility] Comment on above: Performed By: #### B MP, CBC #### [facility] [address] [place], [place] [id number] Block Sealer: Rodrick Jones MD Urine WBC's 5 TO 10 Normal 0-5 [facility] Comment on above: Performed By: #### B MP, CBC #### [facility] [address] [place] [address] [id number] Block Sealer: Rodrick Jones MD XR CHEST PORTABLEon 06-21-19 [...] Radha Caceres MD 06/20/22 Final result Normal [facility] MHPN RIS CONSOLIDATED MHPN RIS CONSOLIDATED [facility] Work Phone: XR CHEST PORTABLEOrdered By: Radha Caceres on 06-20-2022 [facility] [employer] Work Phone: POC Glucose Fingerstickon Glucose [Mass/Vol] 269 mg/dL High 75 - 110 mg/dL [facility] Interpretation and review of laboratory results Abnormal [facility] Glucose [Mass/Vol] 248 mg/dL High 75 - 110 mg/dL [facility] Interpretation and review of laboratory results Abnormal [facility] Basic Metabolic Panelon Anion gap [Moles/Vol] 14 mmol/L 9 - 17 mmol/L [facility] Calcium [Mass/Vol] 9.4 mg/dL 8.6 - 10. 4 mg/dL [facility] Chloride [Moles/Vol] 103 mmol/L 98 - 10 7 mmol/L [facility] CO2 [Moles/Vol] 20 mmol/L 20 - 31 mmol/L [facility] Creatinine [Mass/Vol] 2.11 mg/dL High 0.70 - 1.20 mg/dL [facility] GFR/1.73 sq M.predicted MDRD (S/P/Bld) [Vol rate/Area] 35 mL/min/{1.73_m2} Low - PINF [facility] Comment on above: These results are not [...] 254 mg/dL High 70 - 99 mg/dL [facility] Interpretation and review of laboratory results Abnormal [facility] Potassium [Moles/Vol] 4.4 mmol/L 3.7 - 5.3 mmol/L [facility] Sodium [Moles/Vol] 137 mmol/L 135 - 144 mmol/L [facility] Urea nitrogen [Mass/Vol] 29 mg/dL High 8 - 23 mg/dL [facility] Basic Metabolic Profon 06-10 Anion gap [Moles/Vol] 14 mmol/L Normal 9-17 [facility] Comment on above: Performed By: #### B CECY, JORDAN #### [facility] [address] [place] [address] Block Sealer: Fanelly, You, DO Calcium [Mass/Vol] 9.4 mg/dL Normal 8.6-10.4 [facility] Comment on above: Performed By: #### B CECY, CBC #### [facility] [address] [facility] [place] [address] Block Sealer: You Bro DO Chloride [Moles/Vol] 103 mmol/L Normal 98-107 [facility] Comment on above: Performed By: #### B MP, CBC #### [facility] [address] [facility] [place] [address] Block Sealer: You Bro DO CO2 [Moles/Vol] 20 mmol/L Normal 20-31 [facility] Comment on above: Performed By: #### B CECY, CBC #### [facility] [facility] [place] [address] Block Sealer: You Bro DO Creatinine [Mass/Vol] 2.11 mg/dL High 0.70-1.20 [facility] Comment on above: Performed By: #### B CECY, CBC #### [facility] [facility] [place] [address] Block Sealer: You Bro DO GFR/1.73 sq M.predicted among non-blacks MDRD (S/P/Bld) [Vol rate/Area] 35 mL/min/{1.73_m2} Low >60 [facility] Comment on above: Result Comment: [...] Performed By: #### B MP, CBC #### [facility] [address] [facility] [place] [address] Block Sealer: You Bro DO Glucose [Mass/Vol] 254 mg/dL High 70-99 [facility] Comment on above: Performed By: #### B MP, CBC #### [facility] [address] [place] [address] Block Sealer: You Bro DO Potassium [Moles/Vol] 4.4 mmol/L Normal 3.7-5.3 [facility] Comment on above: Performed By: #### B MP, CBC #### [facility] [address] [place] [address] Block Sealer: You Bro DO Sodium [Moles/Vol] 137 mmol/L Normal 135-144 [facility] Comment on above: Performed By: #### B CECY, CBC #### [facility] [facility] [place] [address] Block Sealer: You Bro DO Urea nitrogen [Mass/Vol] 29 mg/dL High 8-23 [facility] Comment on above: Performed By: #### B CECY, CBC #### [facility] [facility] [place] [address] Block Sealer: You Bro DO CBCon 06-10-2022 Erythrocyte distribution width (RBC) [Ratio] 15.0 % High 11.5-14.9 [facility] Comment on above: Performed By: #### B MP, CBC #### [facility] [facility] [place] [address] Block Sealer: You Bro DO Hematocrit (Bld) [Volume fraction] 40.7 % Low 41-53 [facility] Comment on above: Performed By: #### B MP, CBC #### [facility] [facility] [place] [address] Block Sealer: You Bro DO Hemoglobin (Bld) [Mass/Vol] 13.7 g/dL Normal 13.5-17.5 [facility] Comment on above: Performed By: #### B MP, CBC #### [facility] [place] [address] Block Sealer: You Bro DO MCH (RBC) [Entitic mass] 30.9 pg Normal 26-34 [facility] Comment on above: Performed By: #### B MP, CBC #### [facility] [address] [place] [address] Block Sealer: You Bro DO MCHC (RBC) [Mass/Vol] 33.7 g/dL Normal 31-37 [facility] Comment on above: Performed By: #### B CECY, CBC #### [facility] [address] [place] [address] Block Sealer: You Bro DO MCV (RBC) [Entitic vol] 91.5 fL Normal 80-100 [facility] Comment on above: Performed By: #### B MP, CBC #### [facility] [address] [place] [address] Block Sealer: You Bro DO Platelet mean volume (Bld) [Entitic vol] 8.2 fL Normal 6.0-12.0 [facility] Comment on above: Performed By: #### B MP, CBC #### [facility] [address] [place] [address] Block Sealer: You Bro DO Platelets (Bld) [#/Vol] 312 10*3/uL Normal 150-450 [facility] Comment on above: Performed By: #### B MP, CBC #### [facility] [address] [place] [address] Block Sealer: You Bro DO RBC (Bld) [#/Vol] 4.44 10*6/uL Low 4.5-5.9 [facility] Comment on above: Performed By: #### B MP, CBC #### [facility] [address] [place] [address] Block Sealer: You Bro DO WBC (Bld) [#/Vol] 10.3 10*3/uL Normal 3.5-11.0 [facility] Comment on above: Performed By: #### B MP, CBC #### [facility] [address] [place] [address] Block Sealer: You Bro DO Hematocrit (Bld) [Volume fraction] 40.7 % Low 41 - 53 % [facility] Hemoglobin (Bld) [Mass/Vol] 13.7 g/dL 13.5 - 17.5 g/dL [facility] Interpretation and review of laboratory results Abnormal [facility] MCH (RBC) [Entitic mass] 30.9 pg 26 - 34 pg [facility] MCHC (RBC) [Mass/Vol] 33.7 g/dL 31 - 37 g/dL [facility] MCV (RBC) [Entitic vol] 91.5 fL 80 - 100 fL [facility] Platelet distribution width (Bld) [Ratio] 15.0 % High 11.5 - 14.9 % [facility] Platelet mean volume (Bld) [Entitic vol] 8.2 fL 6.0 - 12.0 fL [facility] Platelets (Bld) [#/Vol] 312 10*3/uL [facility] RBC (Bld) [#/Vol] 4.44 10*6/uL Low 4.5 - 5.9 m/uL [facility] WBC (Bld) [#/Vol] 10.3 10*3/uL [facility] Lamotrigineon 06-10-2022 Lamotrigine 3.3 ug/mL Normal 3.0-15.0 [facility] Comment on above: Result Comment: [...] may be needed. Performed By: #### L NORFOLK ####[id number] [place] [address] lab Director: Rodrick Jones MD POC Glucose Fingerstickon Glucose [Mass/Vol] 206 mg/dL High 75 - 110 mg/dL [facility] Interpretation and review of laboratory results Abnormal [facility] Glucose [Mass/Vol] 244 mg/dL High 75 - 110 mg/dL [facility] Interpretation and review of laboratory results Abnormal [facility] Glucose [Mass/Vol] 223 mg/dL High 75 - 110 mg/dL [facility] Interpretation and review of laboratory results Abnormal [facility] Glucose [Mass/Vol] 208 mg/dL High 75 - 110 mg/dL [facility] Interpretation and review of laboratory results Abnormal [facility] Lamotrigine Levelon 06-10-19 23 Lamotrigine Lvl 3.3 ug/mL 3.0 - 15.0 ug/mL [facility] Comment on above: Neither a therapeutic or [...] Multiple measurements of lamotrigine may be needed. [facility] POC Glucose Fingerstickon Glucose [Mass/Vol] 175 mg/dL High 75 - 110 mg/dL [facility] Interpretation and review of laboratory results Abnormal [facility] Glucose [Mass/Vol] 232 mg/dL High 75 - 110 mg/dL [facility] Interpretation and review of laboratory results Abnormal [facility] Glucose [Mass/Vol] 215 mg/dL High 75 - 110 mg/dL [facility] Interpretation and review [facility] laboratory results Abnormal [facility] Glucose [Mass/Vol] 187 mg/dL High 75 - 110 mg/dL [facility] Interpretation and review of laboratory results Abnormal [facility] POC Glucose Fingerstickon Glucose [Mass/Vol] 202 mg/dL High 75 - 110 mg/dL [facility] Interpretation and review of laboratory results Abnormal [facility] Glucose [Mass/Vol] 216 mg/dL High 75 - 110 mg/dL [facility] Interpretation and review of laboratory results Abnormal [facility] Glucose [Mass/Vol] 248 mg/dL High 75 - 110 mg/dL [facility] Interpretation and review of laboratory results Abnormal [facility] Glucose [Mass/Vol] 175 mg/dL High 75 - 110 mg/dL [facility] Interpretation and review of laboratory results Abnormal [facility] Glucose Fingerstickon Glucose [Mass/Vol] 219 mg/dL High 75 - 110 mg/dL [facility] Interpretation and review of laboratory results Abnormal [facility] Glucose [Mass/Vol] 221 mg/dL High 75 - 110 mg/dL [facility] Interpretation and review of laboratory results Abnormal [facility] Glucose [Mass/Vol] 180 mg/dL High 75 - 110 mg/dL [facility] Interpretation and review of laboratory results Abnormal [facility] Glucose [Mass/Vol] 181 mg/dL High 75 - 110 mg/dL [facility] Interpretation and review of laboratory results Abnormal [facility] Glucose Fingerstickon Glucose [Mass/Vol] 209 mg/dL High 75 - 110 mg/dL [facility] Interpretation and review of laboratory results Abnormal [facility] Glucose [Mass/Vol] 133 mg/dL High 75 - 110 mg/dL [facility] Interpretation and review of laboratory results Abnormal [facility] Glucose [Mass/Vol] 255 mg/dL High 75 - 110 mg/dL [facility] Interpretation and review of laboratory results Abnormal [facility] Glucose [Mass/Vol] 158 mg/dL High 75 - 110 mg/dL [facility] Interpretation and review of laboratory results Abnormal [facility] Basic Metab w/rfx MGon 06-05 Anion gap [Moles/Vol] 11 mmol/L Normal 9-17 [facility] Comment on above: Performed By: #### C DP, LIVP, BMPX #### [facility] [address] [place] [address] Block Sealer: You Bro, DO Calcium [Mass/Vol] 8.9 mg/dL Normal 8.6-10.4 [facility] Comment on above: Performed By: #### C DP, LIVP, BMPX #### [facility] [place] [address] Block Sealer: You Bro, DO Chloride [Moles/Vol] 105 mmol/L Normal 98-107 [facility] Comment on above: Performed By: #### C DP, LIVP, BMPX #### [facility] [address] [place] [address] Block Sealer: You Bro, DO CO2 [Moles/Vol] 24 mmol/L Normal 20-31 [facility] Comment on above: Performed By: #### C DP, LIVP, BMPX #### [facility] [facility] [place] [address] Block Sealer: You Bro DO Creatinine [Mass/Vol] 2.07 mg/dL High 0.70-1.20 [facility] Comment on above: Performed By: #### C DP, LIVP, BMPX #### [facility] [address] [facility] [place] [address] Block Sealer: You Bro DO GFR/1.73 sq M.predicted among non-blacks MDRD (S/P/Bld) [Vol rate/Area] 36 mL/min/{1.73_m2} Low >60 [facility] Comment on above: Result Comment: [...] tubular secretion. Performed By: #### C DP, LIVP, BMPX #### [facility] [address] [facility] [place] [address] Block Sealer: You Bro DO Glucose [Mass/Vol] 171 mg/dL High 70-99 [facility] Comment on above: Performed By: #### C DP, LIVP, BMPX #### [facility] [facility] [place] [address] Block Sealer: You Bro DO Potassium [Moles/Vol] 3.7 mmol/L Normal 3.7-5.3 [facility] Comment on above: Performed By: #### C DP, LIVP, BMPX #### [facility] [address] [facility] [place] [address] Block Sealer: You Bro DO Sodium [Moles/Vol] 140 mmol/L Normal 135-144 [facility] Comment on above: Performed By: #### C DP, LIVP, BMPX #### [facility] [address] [place] [address] Block Sealer: You Bro DO Urea nitrogen [Mass/Vol] 27 mg/dL High 8-23 [facility] Comment on above: Performed By: #### C DP, LIVP, BMPX #### [facility] [address] [facility] [place], [place] [id number] Block Sealer: You Bro DO Basic Metabolic Panel w/ Ref artis to MGon 06-05-2022 Anion gap [Moles/Vol] 11 mmol/L 9 - 17 mmol/L [facility] Calcium [Mass/Vol] 8.9 mg/dL 8.6 - 10. 4 mg/dL [facility] Chloride [Moles/Vol] 105 mmol/L 98 - 10 7 mmol/L [facility] CO2 [Moles/Vol] 24 mmol/L 20 - 31 mmol/L [facility] Creatinine [Mass/Vol] 2.07 mg/dL High 0.70 - 1.20 mg/dL [facility] GFR/1.73 sq M.predicted MDRD (S/P/Bld) [Vol rate/Area] 36 mL/min/{1.73_m2} Low - PINF [facility] Comment on above: These results are not [...] 171 mg/dL High 70 - 99 mg/dL [email or web address] Potassium [Moles/Vol] 3.7 mmol/L 3.7 - 5.3 mmol/L [facility] Sodium [Moles/Vol] 140 mmol/L 135 - 144 mmol/L [facility] Urea nitrogen [Mass/Vol] 27 mg/dL High 8 - 23 mg/dL [facility] CBC auto differentialon 05-13 Absolute Eos # 0.52 High [facility] Absolute Lymph # 2.50 [facility] Absolute Becker # 0.83 [facility] Basophils (Bld) [#/Vol] 0.10 10*3/uL [facility] Basophils/100 WBC (Bld) 1 % 0 - 2 % [facility] Eosinophils/100 WBC (Bld) 5 % High 0 - 4 % [facility] Hematocrit (Bld) [Volume fraction] 38.0 % Low 41 - 53 % [facility] Hemoglobin (Bld) [Mass/Vol] 12.5 g/dL Low 13.5 - 17.5 g/dL [facility] Interpretation and review of laboratory results Abnormal [facility] Lymphocytes/100 WBC (Bld) 24 % 24 - 44 % [facility] MCH (RBC) [Entitic mass] 31.1 pg 26 - 34 pg [facility] MCHC (RBC) [Mass/Vol] 33.1 g/dL 31 - 37 g/dL B ON [facility] MCV (RBC) [Entitic vol] 94.2 fL 80 - 100 fL [facility] Monocytes/100 WBC (Bld) 8 % High 1 - 7 % [facility] Morphology Cale (Bld) [Interp] ANISOCYTOSIS PRESENT [facility] Platelet distribution width (Bld) [Ratio] 14.3 % 11.5 - 14.9 % [facility] Platelet mean volume (Bld) [Entitic vol] 7.4 fL 6.0 - 12.0 fL [facility] Platelets (Bld) [#/Vol] 357 10*3/uL [facility] RBC (Bld) [#/Vol] 4.03 10*6/uL Low 4.5 - 5.9 m/uL [facility] Segmented neutrophils/100 WBC (Bld) 62 % 36 - 66 % [facility] Segs Absolute 6.45 [facility] WBC (Bld) [#/Vol] 10.4 10*3/uL [facility] CBC with Diffon 06-05-2022 Abs. Basophil 0.10 k/uL Normal 0.0-0.2 [facility] Comment on above: Performed By: #### C DP, LIVP, BMPX #### [facility] [address] [facility] [place] [address] Block Sealer: You Bro DO Abs.Neutrophil (Seg) 6.45 k/uL Normal 1.3-9.1 [facility] Comment on above: Performed By: #### C DP, LIVP, BMPX #### [facility] [place] [address] Block Sealer: You Bro DO Basophils/100 WBC (Bld) 1 % Normal 0-2 [facility] Comment on above: Performed By: #### C DP, LIVP, BMPX #### [facility] [facility] [place] [address] Block Sealer: You Bro DO Eosinophils (Bld) [#/Vol] 0.52 10*3/uL High 0.0-0.4 [facility] Comment on above: Performed By: #### C DP, LIVP, BMPX #### [facility] [address] [place] [address] Block Sealer: You Bro DO Eosinophils/100 WBC (Bld) 5 % High 0-4 [facility] Comment on above: Performed By: #### C DP, LIVP, BMPX #### [facility] [address] [place] [address] Block Sealer: You Bro DO Lymphocytes (Bld) [#/Vol] 2.50 10*3/uL Normal 1.0-4.8 [facility] Comment on above: Performed By: #### C DP, LIVP, BMPX #### [facility] [address] [place] [address] Block Sealer: You Bro DO Lymphocytes/100 WBC (Bld) 24 % Normal 24-44 [facility] Comment on above: Performed By: #### C DP, LIVP, BMPX #### [facility] [place] [address] Block Sealer: You Bro DO Monocytes (Bld) [#/Vol] 0.83 10*3/uL Normal 0.1-1.3 [facility] Comment on above: Performed By: #### C DP, LIVP, BMPX #### [facility] [address] [place] [address] Block Sealer: You Bro DO Monocytes/100 WBC (Bld) 8 % High 1-7 [facility] Comment on above: Performed By: #### C DP, LIVP, BMPX #### [facility] [address] [place] [address] Block Sealer: You Bro DO Morphology Cale (Bld) [Interp] ANISOCYTOSIS PRESENT Normal [facility] Comment on above: Performed By: #### C DP, LIVP, BMPX #### [facility] [address] [place] [address] Block Sealer: You Bro DO Neutrophil (Seg) 62 % Normal 36-66 [facility] Comment on above: Performed By: #### C DP, LIVP, BMPX #### [facility] [address] [place] [address] Block Sealer: You Bro DO Erythrocyte distribution width (RBC) [Ratio] 14.3 % Normal 11.5-14.9 [facility] Comment on above: Performed By: #### C DP, LIVP, BMPX #### [facility] [place] [address] Block Sealer: You Bro DO Hematocrit (Bld) [Volume fraction] 38.0 % Low 41-53 [facility] Comment on above: Performed By: #### C DP, LIVP, BMPX #### [facility] [address] [place], [place] [address] [place] [address] Block Sealer: You Bro DO Hemoglobin (Bld) [Mass/Vol] 12.5 g/dL Low 13.5-17.5 [facility] Comment on above: Performed By: #### C DP, LIVP, BMPX #### [facility] [address] [place] [address] Block Sealer: You Bro DO MCH (RBC) [Entitic mass] 31.1 pg Normal 26-34 [facility] Comment on above: Performed By: #### C DP, LIVP, BMPX #### [facility] [address] [place] [address] Block Sealer: You Bro DO MCHC (RBC) [Mass/Vol] 33.1 g/dL Normal 31-37 [facility] Comment on above: Performed By: #### C DP, LIVP, BMPX #### [facility] [address] [place] [address] Block Sealer: You Bro DO MCV (RBC) [Entitic vol] 94.2 fL Normal 80-100 [facility] Comment on above: Performed By: #### C DP, LIVP, BMPX #### [facility] [address] [place] [address] Block Sealer: You Bro DO Platelet mean volume (Bld) [Entitic vol] 7.4 fL Normal 6.0-12.0 [facility] Comment on above: Performed By: #### C DP, LIVP, BMPX #### [facility] Lab [address] [facility] [place] [address] Block Sealer: You Bro DO Platelets (Bld) [#/Vol] 357 10*3/uL Normal 150-450 [facility] Comment on above: Performed By: #### C DP, LIVP, BMPX #### [facility] [address] [place] [address] Block Sealer: You Bro DO RBC (Bld) [#/Vol] 4.03 10*6/uL Low 4.5-5.9 [facility] Comment on above: Performed By: #### C DP, LIVP, BMPX #### [facility] [address] [facility] [place] [address] Block Sealer: You Bro DO WBC (Bld) [#/Vol] 10.4 10*3/uL Normal 3.5-11.0 [facility] Comment on above: Performed By: #### C DP, LIVP, BMPX #### [facility] [address] [facility] [place] [address] Block Sealer: You Bro DO Hepatic function panelon Albumin [Mass/Vol] 3.4 g/dL Low 3.5 - 5.2 g/dL [facility] ALP [Catalytic activity/Vol] 92 U/L 40 - 129 U/L [facility] ALT [Catalytic activity/Vol] 33 U/L 5 - 41 U/L [facility] AST [Catalytic activity/Vol] 30 U/L [facility] - 40 U/L [facility] Bilirubin [Mass/Vol] 0.4 mg/dL 0.3 - 1 .2 mg/dL [facility] Bilirubin.direct [Mass/Vol] 0.1 mg/dL NINF - 0.3 mg/dL [facility] Bilirubin.indirect [Mass/Vol] 0.3 mg/dL 0.0 - 1.0 mg/dL [facility] Protein [Mass/Vol] 7.2 g/dL 6.4 - 8.3 g/dL [facility] Liver Profileon 06-05-2022 Albumin [Mass/Vol] 3.4 g/dL Low 3.5-5.2 [facility] Comment on above: Performed By: #### C DP, LIVP, BMPX #### [facility] [address] [place] [address] Block Sealer: You Bro DO Alkaline Phos 92 U/L Normal 40-129 [facility] Comment on above: Performed By: #### C DP, LIVP, BMPX #### [facility] [place] [place] [address] Block Sealer: You Bro DO ALT [Catalytic activity/Vol] 33 U/L Normal 5-41 [facility] Comment on above: Performed By: #### C DP, LIVP, BMPX #### [facility] [place] [place] [address] Block Sealer: You Bro DO AST [Catalytic activity/Vol] 30 U/L Normal <40 [facility] Comment on above: Performed By: #### C DP, LIVP, BMPX #### [facility] [address] [place] [address] Block Sealer: You Bro DO Bilirubin [Mass/Vol] 0.4 mg/dL Normal 0.3-1.2 [facility] Comment on above: Performed By: #### C DP, LIVP, BMPX #### [facility] [address] [place] [address] Block Sealer: You Bro DO Bilirubin, Indirect 0.3 mg/dL Normal 0.0-1.0 [facility] Comment on above: Performed By: #### C DP, LIVP, BMPX #### [facility] [address] [facility] [place] [address] Block Sealer: You Bro DO Bilirubin.indirect [Mass/Vol] 0.1 mg/dL Normal <0.3 [facility] Comment on above: Performed By: #### C DP, LIVP, BMPX #### [facility] [address] [facility] [place] [address] Block Sealer: You Bro DO Protein [Mass/Vol] 7.2 g/dL Normal 6.4-8.3 [facility] Comment on above: Performed By: #### C DP, LIVP, BMPX #### [facility] [address] [facility] [place] [address] Block Sealer: You Bro DO No Panel Informationon 06-05 Interpretation and review of laboratory results Abnormal [facility] POC Glucose Fingerstickon Glucose [Mass/Vol] 216 mg/dL High 75 - 110 mg/dL [facility] Interpretation and review of laboratory results Abnormal [facility] Glucose [Mass/Vol] 178 mg/dL High 75 - 110 mg/dL [facility] Interpretation and review of laboratory results Abnormal [facility] Glucose [Mass/Vol] 218 mg/dL High 75 - 110 mg/dL [facility] Interpretation and review of laboratory results Abnormal [facility] Glucose [Mass/Vol] 156 mg/dL High 75 - 110 mg/dL [facility] Interpretation and review of laboratory results Abnormal [facility] Basic Metabolic Panelon 05-13 Anion gap [Moles/Vol] 12 mmol/L 9 - 17 mmol/L [facility] Calcium [Mass/Vol] 9.0 mg/dL 8.6 - 10. 4 mg/dL [facility] Chloride [Moles/Vol] 111 mmol/L High 98 - 10 7 mmol/L [facility] CO2 [Moles/Vol] 20 mmol/L 20 - 31 mmol/L [facility] Creatinine [Mass/Vol] 2.23 mg/dL High 0.70 - 1.20 mg/dL [facility] GFR/1.73 sq M.predicted MDRD (S/P/Bld) [Vol rate/Area] 33 mL/min/{1.73_m2} Low - PINF [facility] Comment on above: These results are not [...] 56 mg/dL Low 70 - 99 mg/dL [facility] Interpretation and review of laboratory results Abnormal [facility] Potassium [Moles/Vol] 4.4 mmol/L 3.7 - 5.3 mmol/L [facility] Sodium [Moles/Vol] 143 mmol/L 135 - 144 mmol/L [facility] Urea nitrogen [Mass/Vol] 27 mg/dL High 8 - 23 mg/dL [facility] Basic Metabolic Profon 06-04 Glucose [Mass/Vol] 56 mg/dL Low 70-99 [facility] Comment on above: Performed By: #### B MP #### [facility] [address] [place] [address] Block Sealer: Rodrick Jones MD Anion gap [Moles/Vol] 12 mmol/L Normal 9-17 [facility] Comment on above: Performed By: #### B MP #### [facility] [place] [address] Block Sealer: Rodrick Jones MD Calcium [Mass/Vol] 9.0 mg/dL Normal 8.6-10.4 [facility] Comment on above: Performed By: #### B MP #### [facility] [address] [place] [address] Block Sealer: Rodrick Jones MD Chloride [Moles/Vol] 111 mmol/L High 98-107 [facility] Comment on above: Performed By: #### B MP #### [facility] [address] [place] [address] Block Sealer: Rodrick Jones MD CO2 [Moles/Vol] 20 mmol/L Normal 20-31 [facility] Comment on above: Performed By: #### B MP #### [facility] [address] [place] [address] Block Sealer: Rodrick Jones MD Creatinine [Mass/Vol] 2.23 mg/dL High 0.70-1.20 [facility] Comment on above: Performed By: #### B MP #### [address] [address] Block Sealer: Rodrick Jones MD GFR/1.73 sq M.predicted among non-blacks MDRD (S/P/Bld) [Vol rate/Area] 33 mL/min/{1.73_m2} Low >60 [facility] Comment on above: Result Comment: These [...] secretion. Performed By: #### B MP #### [address] [address] Block Sealer: Rodrick Jones MD Potassium [Moles/Vol] 4.4 mmol/L Normal 3.7-5.3 [facility] Comment on above: Performed By: #### B MP #### [facility] [address] [place] [address] Block Sealer: Rodrick Jones MD Sodium [Moles/Vol] 143 mmol/L Normal 135-144 [facility] Comment on above: Performed By: #### B MP #### [facility] [address] [place], [place] [id number] Block Sealer: Rodrick Jones MD Urea nitrogen [Mass/Vol] 27 mg/dL High 8- [facility] Comment on above: Performed By: #### B MP #### [facility] [place], [place] [phone] Block Sealer: Rodrick Jones MD POC Glucose Fingerstickon Glucose [Mass/Vol] 213 mg/dL High 75 - 110 mg/dL [facility] Interpretation and review of laboratory results Abnormal [facility] Glucose [Mass/Vol] 215 mg/dL High 75 - 110 mg/dL [facility] Interpretation and review of laboratory results Abnormal [facility] Glucose [Mass/Vol] 107 mg/dL 75 - 110 mg/dL [facility] Glucose [Mass/Vol] 79 mg/dL 75 - 110 mg/dL [facility] Basic Metabolic Panelon 05-13 Anion gap [Moles/Vol] 14 mmol/L 9 - 17 mmol/L [facility] Calcium [Mass/Vol] 8.8 mg/dL 8.6 - 10. 4 mg/dL [facility] Chloride [Moles/Vol] 105 mmol/L 98 - 10 7 mmol/L [facility] CO2 [Moles/Vol] 20 mmol/L 20 - 31 mmol/L [facility] Creatinine [Mass/Vol] 2.05 mg/dL High 0.70 - 1.20 mg/dL [facility] GFR/1.73 sq M.predicted MDRD (S/P/Bld) [Vol rate/Area] 36 mL/min/{1.73_m2} Low - PINF [facility] Comment on above: These results are not [...] 197 mg/dL High 70 - 99 mg/dL [facility] Interpretation and review of laboratory results Abnormal [facility] Potassium [Moles/Vol] 4.5 mmol/L 3.7 - 5.3 mmol/L [facility] Comment on above: SPECIMEN SLIGHTLY HE MOLYZED, RESULTS MAY BE ADVERSELY AFFECTED. Sodium [Moles/Vol] 139 mmol/L 135 - 144 mmol/L [facility] Urea nitrogen [Mass/Vol] 26 mg/dL High 8 - 23 mg/dL [facility] Basic Metabolic Profon 06-03 Anion gap [Moles/Vol] 14 mmol/L Normal 9-17 [facility] Comment on above: Performed By: #### C RP, RENP, CBC, MG #### [id number] [address] [place], [place] [id number] Block Sealer: Rodrick Jones MD Calcium [Mass/Vol] 8.8 mg/dL Normal 8.6-10.4 [facility] Comment on above: Performed By: #### C RP, RENP, CBC, MG #### [id number] [address] [place] [address] Block Sealer: Rodrick Jones MD Chloride [Moles/Vol] 105 mmol/L Normal 98-107 [facility] Comment on above: Performed By: #### C RP, RENP, CBC, MG #### [id number] [address] [place] [address] Block Sealer: Rodrick Jones MD CO2 [Moles/Vol] 20 mmol/L Normal 20-31 [facility] Comment on above: Performed By: #### C RP, RENP, CBC, MG #### [address] [address] Block Sealer: Rodrick Jones MD Creatinine [Mass/Vol] 2.05 mg/dL High 0.70-1.20 [facility] Comment on above: Performed By: #### C RP, RENP, CBC, MG #### [address] [address] Block Sealer: Rodrick Jones MD GFR/1.73 sq M.predicted among non-blacks MDRD (S/P/Bld) [Vol rate/Area] 36 mL/min/{1.73_m2} Low >60 [facility] Comment on above: Result Comment: These [...] #### C RP, RENP, CBC, MG #### [address] [address] Block Sealer: Rodrick Jones MD Glucose [Mass/Vol] 197 mg/dL High 70-99 [facility] Comment on above: Performed By: #### C RP, RENP, CBC, MG #### [address] [address] Block Sealer: Rodrick Jones MD Potassium [Moles/Vol] 4.5 mmol/L Normal 3.7-5.3 [facility] Comment on above: Result Comment: SPEC IMEN SLIGHTLY HEMOLYZED, RESULTS MAY BE ADVERSELY AFFECTED. Performed By: #### C RP, RENP, CBC, MG #### [facility] [place], [place] [id number] Block Sealer: Rodrick Jones MD Sodium [Moles/Vol] 139 mmol/L Normal 135-144 [facility] Comment on above: Performed By: #### C RP, RENP, CBC, MG #### [facility] [address] [place] [phone] Block Sealer: Rodrick Jones MD Urea nitrogen [Mass/Vol] 26 mg/dL High 12-01 [facility] Comment on above: Performed By: #### C RP, RENP, CBC, MG #### [id number] [address] [place] [id number] Block Sealer: Rodrick Jones MD POC Glucose Fingerstickon Glucose [Mass/Vol] 140 mg/dL High 75 - 110 mg/dL [facility] Interpretation and review of laboratory results Abnormal [facility] Glucose [Mass/Vol] 181 mg/dL High 75 - 110 mg/dL [facility] Interpretation and review of laboratory results Abnormal [facility] Glucose [Mass/Vol] 206 mg/dL High 75 - 110 mg/dL [facility] Interpretation and review of laboratory results Abnormal [facility] Glucose [Mass/Vol] 107 mg/dL 75 - 110 mg/dL [facility] Glucose [Mass/Vol] 96 mg/dL 75 - 110 mg/dL [facility] Glucose [Mass/Vol] 71 mg/dL Low 75 - 110 mg/dL [facility] Interpretation and review of laboratory results Abnormal [facility] Basic Metab w/rfx MGon 06-02 Anion gap [Moles/Vol] 13 mmol/L Normal 9-17 [facility] Comment on above: Performed By: #### C RP, RENP, CBC, MG #### [facility] [address] [place] [address] Block Sealer: Rodrick Jones MD Calcium [Mass/Vol] 8.6 mg/dL Normal 8.6-10.4 [facility] Comment on above: Performed By: #### C RP, RENP, CBC, MG #### [facility] [address] [place] [address] Block Sealer: Rodrick Jones MD Chloride [Moles/Vol] 108 mmol/L High 98-107 [facility] Comment on above: Performed By: #### C RP, RENP, CBC, MG #### [facility] [address] [place] [address] Block Sealer: Rodrick Jones MD CO2 [Moles/Vol] 20 mmol/L Normal 20-31 [facility] Comment on above: Performed By: #### C RP, RENP, CBC, MG #### [facility] [address] [place] [address] Block Sealer: Rodrick Jones MD Creatinine [Mass/Vol] 2.22 mg/dL High 0.70-1.20 [facility] Comment on above: Performed By: #### C RP, RENP, CBC, MG #### [facility] [address] [place] [address] Block Sealer: Rodrick Jones MD GFR/1.73 sq M.predicted among non-blacks MDRD (S/P/Bld) [Vol rate/Area] 33 mL/min/{1.73_m2} Low >60 [facility] Comment on above: Result Comment: These [...] #### C RP, RENP, CBC, MG #### [facility] [address] [place] [address] Block Sealer: Rodrick Jones MD Glucose [Mass/Vol] 181 mg/dL High 70-99 [facility] Comment on above: Performed By: #### C RP, RENP, CBC, MG #### [facility] [address] [place] [address] Block Sealer: Rodrick Jones MD Potassium [Moles/Vol] 4.0 mmol/L Normal 3.7-5.3 [facility] Comment on above: Performed By: #### C RP, RENP, CBC, MG #### [facility] [address] [place] [address] Block Sealer: Rodrick Jones MD Sodium [Moles/Vol] 141 mmol/L Normal 135-144 [facility] Comment on above: Performed By: #### C RP, RENP, CBC, MG #### [facility] [address] [place] [address] Block Sealer: Rodrick Jones MD Urea nitrogen [Mass/Vol] 31 mg/dL High 8-23 [facility] Comment on above: Performed By: #### C RP, RENP, CBC, MG #### [facility] [address] [place] [address] Block Sealer: Rodrick Jones MD Basic Metabolic Panel w/ Ref artis to MGon 06-02-2022 Anion gap [Moles/Vol] 13 mmol/L 9 - 17 mmol/L [facility] Calcium [Mass/Vol] 8.6 mg/dL 8.6 - 10. 4 mg/dL [facility] Chloride [Moles/Vol] 108 mmol/L High 98 - 10 7 mmol/L [facility] CO2 [Moles/Vol] 20 mmol/L 20 - 31 mmol/L [facility] Creatinine [Mass/Vol] 2.22 mg/dL High 0.70 - 1.20 mg/dL [facility] GFR/1.73 sq M.predicted MDRD (S/P/Bld) [Vol rate/Area] 33 mL/min/{1.73_m2} Low - PINF [facility] Comment on above: These results are not [...] 181 mg/dL High 70 - 99 mg/dL [facility] Interpretation and review of laboratory results Abnormal [facility] Potassium [Moles/Vol] 4.0 mmol/L 3.7 - 5.3 mmol/L [facility] Sodium [Moles/Vol] 141 mmol/L 135 - 144 mmol/L [facility] Urea nitrogen [Mass/Vol] 31 mg/dL High 8 - 23 mg/dL [facility] CBCon 06-02-2022 Erythrocyte distribution width (RBC) [Ratio] 13.8 % Normal 11.8-14.4 [facility] Comment on above: Performed By: #### C RP, RENP, CBC, MG #### [id number] [address] [place], [place] [id number] Block Sealer: Rodrick Jones MD Hematocrit (Bld) [Volume fraction] 40.3 % Low 40.7-50.3 [facility] Comment on above: Performed By: #### C RP, RENP, CBC, MG #### [id number] [address] [place], [place] [phone] Block Sealer: Rodrick Jones MD Hemoglobin (Bld) [Mass/Vol] 12.9 g/dL Low 13.0-17.0 [facility] Comment on above: Performed By: #### C RP, RENP, CBC, MG #### [address] [address] Block Sealer: Rodrick Jones MD MCH (RBC) [Entitic mass] 30.8 pg Normal 25.2-33.5 [facility] Comment on above: Performed By: #### C RP, RENP, CBC, MG #### [place] [address] Block Sealer: Rodrick Jones MD MCHC (RBC) [Mass/Vol] 32.0 g/dL Normal 28.4-34.8 [facility] Comment on above: Performed By: #### C RP, RENP, CBC, MG #### [place] [address] Block Sealer: Rodrick Jones MD MCV (RBC) [Entitic vol] 96.2 fL Normal 82.6-102.9 [facility] Comment on above: Performed By: #### C RP, RENP, CBC, MG #### [place] [address] Block Sealer: Rodrick Jones MD NRBC Automated 0.0 per 100 WBC Normal 0.0 [facility] Comment on above: Performed By: #### C RP, RENP, CBC, MG #### [place] [address] Block Sealer: Rodrick Jones MD Platelet mean volume (Bld) [Entitic vol] 10.3 fL Normal 8.1-13.5 [facility] Comment on above: Performed By: #### C RP, RENP, CBC, MG #### [address] [address] Block Sealer: Rodrick Jones MD Platelets (Bld) [#/Vol] 336 10*3/uL Normal 138-453 [facility] Comment on above: Performed By: #### C RP, RENP, CBC, MG #### [facility] [address] [place], [place] [phone] Block Sealer: Rodrick Jones MD RBC (Bld) [#/Vol] 4.19 10*6/uL Low 4.21-5.77 [facility] Comment on above: Performed By: #### C RP, RENP, CBC, MG #### [facility] [address] [place], [place] [phone] Block Sealer: Rodrick Jones MD WBC (Bld) [#/Vol] 10.4 10*3/uL Normal 3.5-11.3 [facility] Comment on above: Performed By: #### C RP, RENP, CBC, MG #### [facility] [place], [place] [phone] Block Sealer: Rodrick Jones MD Hematocrit (Bld) [Volume fraction] 40.3 % Low 40.7 - 50.3 % [facility] Hemoglobin (Bld) [Mass/Vol] 12.9 g/dL Low 13.0 - 17.0 g/dL [facility] Interpretation and review of laboratory results Abnormal [facility] MCH (RBC) [Entitic mass] 30.8 pg 25.2 - 33.5 pg [facility] MCHC (RBC) [Mass/Vol] 32.0 g/dL 28.4 - 34.8 g/dL [facility] MCV (RBC) [Entitic vol] 96.2 fL 82.6 - 102.9 fL [facility] NRBC Automated 0.0 0.0 per 100 WBC [facility] Platelet distribution width (Bld) [Ratio] 13.8 % 11.8 - 14.4 % [facility] Platelet mean volume (Bld) [Entitic vol] 10.3 fL 8.1 - 13.5 fL [facility] Platelets (Bld) [#/Vol] 336 10*3/uL [facility] RBC (Bld) [#/Vol] 4.19 10*6/uL Low 4.21 - 5.7 7 m/uL [facility] WBC (Bld) [#/Vol] 10.4 10*3/uL [facility] Cult,Bloodon 06-02-2022 Cult,Blood Specimen Description .BLOOD Culture NO GROWTH 5 DAYS Report Status FINAL 06/02/2022 [facility] Comment on above: Performed By: #### B MP, CBC #### [facility] [address] [place], [place] [id number] Block Sealer: Rodrick Jones MD Cult,Blood Specimen Description .BLOOD Culture NO GROWTH 5 DAYS Report Status FINAL 06/02/2022 [facility] Comment on above: Performed By: #### I FX, URI, C4, PE, FKLLC, C3, PTHNCA #### [facility] [address] [place], [place] [phone] Block Sealer: Rodrick Jones MD Culture, Blood 1on 3 Microorganism identified Cx Nom (Unsp spec) NO GROWTH 5 DAYS [facility] Specimen Description .BLOOD [facility] Microorganism identified Cx Nom (Unsp spec) NO GROWTH 5 DAYS [facility] Specimen Description .BLOOD [facility] MRI BRAIN WO CONTRASTon 05-13 MRI BRAIN [...] Vandana Tyson MD 06/02/22 Final result Normal [facility] 1. No acute intracranial abnormality. 2. Microangiopathic change. [facility] EXAMINATION: MRI OF THE BRAIN WITHOUT CONTRAST [...] The soft tissues demonstrate no acute abnormality. [facility] Vandana Tyson MD - 06/02/2022 EXAMINATION: MRI OF THE [...] No acute intracranial abnormality. 2. Microangiopathic change. [email or web address] Work Phone: Radiology Study observation (narrative) [email or web address] Work Phone: MRI BRAIN WO CONTRASTOrdered By: Vandana Tyson on 06-02-2022 [email or web address] Work Phone: POC Glucose [facility]on Glucose [Mass/Vol] 89 mg/dL 75 - 110 mg/dL [facility] Glucose [Mass/Vol] 110 mg/dL 75 - 110 mg/dL [facility] Glucose [Mass/Vol] 75 mg/dL 75 - 110 mg/dL [facility] Glucose [Mass/Vol] 64 mg/dL Low 75 - 110 mg/dL [facility] Interpretation and review of laboratory results Abnormal [facility]CC[facility] Glucose [Mass/Vol] 85 mg/dL 75 - 110 mg/dL [facility] SECCoPatient [facility] Glucose [Mass/Vol] 57 mg/dL Low 75 - 110 mg/dL [facility] Interpretation and review of laboratory results Abnormal [facility] SECCoPatient [facility] SECC[facility]Patient [facility] Glucose [Mass/Vol] 49 mg/dL Low 75 - 110 mg/dL [facility] Interpretation and review of laboratory results Abnormal [facility] SECm2fxY HEALTH [facility] Glucose [Mass/Vol] 181 mg/dL High 75 - 110 mg/dL [facility] Interpretation and review of laboratory results Abnormal [facility] Glucose [Mass/Vol] 183 mg/dL High 75 - 110 mg/dL [facility] Interpretation and review of laboratory results Abnormal [facility] Basic Metab w/rfx MGon 06-01 Anion gap [Moles/Vol] 12 mmol/L Normal 9-17 [facility] Comment on above: Performed By: #### B MP, CBC #### [facility] [address] [place] [address] Block Sealer: Rodrick Jones MD Calcium [Mass/Vol] 8.6 mg/dL Normal 8.6-10.4 [facility] Comment on above: Performed By: #### B MP, CBC #### [facility] [address] [place] [address] Block Sealer: Rodrick Jones MD Chloride [Moles/Vol] 108 mmol/L High 98-107 [facility] Comment on above: Performed By: #### B MP, CBC #### [facility] [address] [place] [address] Block Sealer: Rodrick Jones MD CO2 [Moles/Vol] 22 mmol/L Normal 20-31 [facility] Comment on above: Performed By: #### B MP, CBC #### [facility] [address] [place] [address] Block Sealer: Rodrick Jones MD Creatinine [Mass/Vol] 2.52 mg/dL High 0.70-1.20 [facility] Comment on above: Performed By: #### B MP, CBC #### [facility] [address] [place] [address] Block Sealer: Rodrick Jones MD GFR/1.73 sq M.predicted among non-blacks MDRD (S/P/Bld) [Vol rate/Area] 28 mL/min/{1.73_m2} Low >60 [facility] Comment on above: Result Comment: These [...] Performed By: #### B MP, CBC #### [facility] [address] [place] [address] Block Sealer: Rodrick Jones MD Glucose [Mass/Vol] 74 mg/dL Normal 70-99 [facility] Comment on above: Performed By: #### B CECY, CBC #### [facility] [address] [place] [address] Block Sealer: Rodrick Jones MD Potassium [Moles/Vol] 3.6 mmol/L Low 3.7-5.3 [facility] Comment on above: Performed By: #### B MP, CBC #### [facility] [address] [place] [address] Block Sealer: Rodrick Jones MD Sodium [Moles/Vol] 142 mmol/L Normal 135-144 [facility] Comment on above: Performed By: #### B MP, CBC #### [facility] [address] [place] [address] Block Sealer: Rodrick Jones MD Urea nitrogen [Mass/Vol] 40 mg/dL High 8-23 [facility] Comment on above: Performed By: #### B CECY, CBC #### [facility] [address] [place] [address] Block Sealer: Rodrick Jones MD Basic Metabolic Panel w/ Ref artis to MGon 06-01-2022 Anion gap [Moles/Vol] 12 mmol/L 9 - 17 mmol/L [facility] Calcium [Mass/Vol] 8.6 mg/dL 8.6 - 10. 4 mg/dL [facility] Chloride [Moles/Vol] 108 mmol/L High 98 - 10 7 mmol/L [facility] CO2 [Moles/Vol] 22 mmol/L 20 - 31 mmol/L [facility] Creatinine [Mass/Vol] 2.52 mg/dL High 0.70 - 1.20 mg/dL [facility] GFR/1.73 sq M.predicted MDRD (S/P/Bld) [Vol rate/Area] 28 mL/min/{1.73_m2} Low - PINF [facility] Comment on above: These results are not [...] [Mass/Vol] 74 mg/dL 70 - 99 mg/dL [facility] Interpretation and review of laboratory results Abnormal [facility] Potassium [Moles/Vol] 3.6 mmol/L Low 3.7 - 5.3 mmol/L [facility] Sodium [Moles/Vol] 142 mmol/L 135 - 144 mmol/L [facility] Urea nitrogen [Mass/Vol] 40 mg/dL High 8 - 23 mg/dL [facility] CBCon 06-01-2022 Erythrocyte distribution width (RBC) [Ratio] 14.3 % Normal 11.8-14.4 [facility] Comment on above: Performed By: #### B MP, CBC #### [id number] [address] [place] [address] Block Sealer: Rodrick Jones MD Hematocrit (Bld) [Volume fraction] 38.3 % Low 40.7-50.3 [facility] Comment on above: Performed By: #### B MP, CBC #### [facility] [address] [place], [place] [id number] Block Sealer: Rodrick Jones MD Hemoglobin (Bld) [Mass/Vol] 12.5 g/dL Low 13.0-17.0 [facility] Comment on above: Performed By: #### B MP, CBC #### [address] [address] Block Sealer: Rodrick Jones MD MCH (RBC) [Entitic mass] 30.8 pg Normal 25.2-33.5 [facility] Comment on above: Performed By: #### B MP, CBC #### [address] [address] Block Sealer: Rodrick Jones MD MCHC (RBC) [Mass/Vol] 32.6 g/dL Normal 28.4-34.8 [facility] Comment on above: Performed By: #### B MP, CBC #### [address] [address] Block Sealer: Rodrick Jones MD MCV (RBC) [Entitic vol] 94.3 fL Normal 82.6-102.9 [facility] Comment on above: Performed By: #### B MP, CBC #### [address] [address] Block Sealer: Rodrick Jones MD NRBC Automated 0.0 per 100 WBC Normal 0.0 [facility] Comment on above: Performed By: #### B MP, CBC #### [address] [address] Block Sealer: Rodrick Jones MD Platelet mean volume (Bld) [Entitic vol] 11.0 fL Normal 8.1-13.5 [facility] Comment on above: Performed By: #### B MP, CBC #### [address] [address] Block Sealer: Rodrick Jones MD Platelets (Bld) [#/Vol] 334 10*3/uL Normal 138-453 [facility] Comment on above: Performed By: #### B MP, CBC #### [facility] [address] [place], [place] [id number] Block Sealer: Rodrick Jones MD RBC (Bld) [#/Vol] 4.06 10*6/uL Low 4.21-5.77 [facility] Comment on above: Performed By: #### B MP, CBC #### [facility] [address] [place], [place] [phone] Block Sealer: Rodrick Jones MD WBC (Bld) [#/Vol] 9.8 10*3/uL Normal 3.5-11.3 [facility] Comment on above: Performed By: #### B MP, CBC #### [id number] [address] [place], [place] [id number] Block Sealer: Rodrick Jones MD Hematocrit (Bld) [Volume fraction] 38.3 % Low 40.7 - 50.3 % [facility] Hemoglobin (Bld) [Mass/Vol] 12.5 g/dL Low 13.0 - 17.0 g/dL [facility] Interpretation and review of laboratory results Abnormal [facility] MCH (RBC) [Entitic mass] 30.8 pg 25.2 - 33.5 pg [facility] MCHC (RBC) [Mass/Vol] 32.6 g/dL 28.4 - 34.8 g/dL [facility] MCV (RBC) [Entitic vol] 94.3 fL 82.6 - 102.9 fL [facility] NRBC Automated 0.0 0.0 per 100 WBC [facility] Platelet distribution width (Bld) [Ratio] 14.3 % 11.8 - 14.4 % [facility] Platelet mean volume (Bld) [Entitic vol] 11.0 fL 8.1 - 13.5 fL [facility] Platelets (Bld) [#/Vol] 334 10*3/uL [facility] RBC (Bld) [#/Vol] 4.06 10*6/uL Low 4.21 - 5.7 7 m/uL [facility] WBC (Bld) [#/Vol] 9.8 10*3/uL [facility] CULTURE BLOODon 06-01-2022 Microscopic examination of blood, [...] Trimethoprim/Sulfame thoxazole <=10 S F Normal [facility] Comment on above: Performed By: #### C BC #### [facility] [address] [place] [address] Dr. Kalie Rodas POC Glucose Fingerstickon Glucose [Mass/Vol] 171 mg/dL High 75 - 110 mg/dL [facility] Interpretation and review of laboratory results Abnormal [facility] Glucose [Mass/Vol] 236 mg/dL High 75 - 110 mg/dL [facility] Interpretation and review of laboratory results Abnormal [facility] Glucose [Mass/Vol] 269 mg/dL High 75 - 110 mg/dL [facility] Interpretation and review of laboratory results Abnormal [facility] Glucose [Mass/Vol] 203 mg/dL High 75 - 110 mg/dL [facility] Interpretation and review [facility] laboratory results Abnormal [facility] Glucose [Mass/Vol] 94 mg/dL 75 - 110 mg/dL [facility] Glucose [Mass/Vol] 144 mg/dL High 75 - 110 mg/dL [facility] Interpretation and review of laboratory results Abnormal [facility] Glucose [Mass/Vol] 58 mg/dL Low 75 - 110 mg/dL [facility] Interpretation and review of laboratory results Abnormal [facility] Glucose [Mass/Vol] 70 mg/dL Low 75 - 110 mg/dL [facility] Interpretation and review of laboratory results Abnormal [facility] Glucose [Mass/Vol] 89 mg/dL 75 - 110 mg/dL [facility] Glucose [Mass/Vol] 59 mg/dL Low 75 - 110 mg/dL [facility] Interpretation and review of laboratory results Abnormal [facility] Glucose [Mass/Vol] 50 mg/dL Low 75 - 110 mg/dL [facility] Comment on above: Critical Noted Interpretation and review of laboratory results Abnormal [facility] Glucose [Mass/Vol] 60 mg/dL Low 75 - 110 mg/dL [facility] Interpretation and review of laboratory results Abnormal [facility] Basic Metab w/rfx MGon 05-31 Anion gap [Moles/Vol] 14 mmol/L Normal 9-17 [facility] Comment on above: Performed By: #### I FX, URI, C4, PE, FKLLC, C3, PTHNCA #### [facility] [place] [address] Block Sealer: Rodrick Jones MD Calcium [Mass/Vol] 8.4 mg/dL Low 8.6-10.4 [facility] Comment on above: Performed By: #### I FX, URI, C4, PE, FKLLC, C3, PTHNCA #### [address] [address] Block Sealer: Rodrick Jones MD Chloride [Moles/Vol] 105 mmol/L Normal 98-107 [facility] Comment on above: Performed By: #### I FX, URI, C4, PE, FKLLC, C3, PTHNCA #### [address] [address] Block Sealer: Rodrick Jones MD CO2 [Moles/Vol] 21 mmol/L Normal 20-31 [facility] Comment on above: Performed By: #### I FX, URI, C4, PE, FKLLC, C3, PTHNCA #### [address] [address] Block Sealer: Rodrick Jones MD Creatinine [Mass/Vol] 3.07 mg/dL High 0.70-1.20 [facility] Comment on above: Performed By: #### I FX, URI, C4, PE, FKLLC, C3, PTHNCA #### [address] [address] Block Sealer: Rodrick Jones MD GFR/1.73 sq M.predicted among non-blacks MDRD (S/P/Bld) [Vol rate/Area] 22 mL/min/{1.73_m2} Low >60 [facility] Comment on above: Result Comment: These [...] URI, C4, PE, FKLLC, C3, PTHNCA #### [facility] [address] [place] [address] Block Sealer: Rodrick Jones MD Glucose [Mass/Vol] 183 mg/dL High 70-99 [facility] Comment on above: Performed By: #### I FX, URI, C4, PE, FKLLC, C3, PTHNCA #### [facility] [address] [place] [address] Block Sealer: Rodrick Jones MD Potassium [Moles/Vol] 3.8 mmol/L Normal 3.7-5.3 [facility] Comment on above: Performed By: #### I FX, URI, C4, PE, FKLLC, C3, PTHNCA #### [facility] [address] [place] [address] Block Sealer: Rodrick Jones MD Sodium [Moles/Vol] 140 mmol/L Normal 135-144 [facility] Comment on above: Performed By: #### I FX, URI, C4, PE, FKLLC, C3, PTHNCA #### [facility] [address] [place] [address] Block Sealer: Rodrick Jones MD Urea nitrogen [Mass/Vol] 54 mg/dL High 8-23 [facility] Comment on above: Performed By: #### I FX, URI, C4, PE, FKLLC, C3, PTHNCA #### [facility] [address] [place] [address] Block Sealer: Rodrick Jones MD Basic Metabolic Panel w/ Ref artis to MGon 05-31-2022 Anion gap [Moles/Vol] 14 mmol/L 9 - 17 mmol/L [facility] Calcium [Mass/Vol] 8.4 mg/dL Low 8.6 - 10. 4 mg/dL [facility] Chloride [Moles/Vol] 105 mmol/L 98 - 10 7 mmol/L [facility] CO2 [Moles/Vol] 21 mmol/L 20 - 31 mmol/L [facility] Creatinine [Mass/Vol] 3.07 mg/dL High 0.70 - 1.20 mg/dL [facility] GFR/1.73 sq M.predicted MDRD (S/P/Bld) [Vol rate/Area] 22 mL/min/{1.73_m2} Low - PINF [facility] Comment on above: These results are not [...] 183 mg/dL High 70 - 99 mg/dL [facility] Interpretation and review of laboratory results Abnormal [facility] Potassium [Moles/Vol] 3.8 mmol/L 3.7 - 5.3 mmol/L [facility] Sodium [Moles/Vol] 140 mmol/L 135 - 144 mmol/L [facility] Urea nitrogen [Mass/Vol] 54 mg/dL High 8 - 23 mg/dL [facility] CBCon 05-31-2022 Erythrocyte distribution width (RBC) [Ratio] 14.2 % Normal 11.8-14.4 [facility] Comment on above: Performed By: #### I FX, URI, C4, PE, FKLLC, C3, PTHNCA #### [id number] [place] [address] Block Sealer: Rodrick Jones MD Hematocrit (Bld) [Volume fraction] 38.1 % Low 40.7-50.3 [facility] Comment on above: Performed By: #### I FX, URI, C4, PE, FKLLC, C3, PTHNCA #### [address] [address] Block Sealer: Rodrick Jones MD Hemoglobin (Bld) [Mass/Vol] 12.5 g/dL Low 13.0-17.0 [facility] Comment on above: Performed By: #### I FX, URI, C4, PE, FKLLC, C3, PTHNCA #### [address] [address] Block Sealer: Rodrick Jones MD MCH (RBC) [Entitic mass] 30.6 pg Normal 25.2-33.5 [facility] Comment on above: Performed By: #### I FX, URI, C4, PE, FKLLC, C3, PTHNCA #### [address] [address] Block Sealer: Rodrick Jones MD MCHC (RBC) [Mass/Vol] 32.8 g/dL Normal 28.4-34.8 [facility] Comment on above: Performed By: #### I FX, URI, C4, PE, FKLLC, C3, PTHNCA #### [address] [address] Block Sealer: Rodrick Jones MD MCV (RBC) [Entitic vol] 93.4 fL Normal 82.6-102.9 [facility] Comment on above: Performed By: #### I FX, URI, C4, PE, FKLLC, C3, PTHNCA #### [address] [address] Block Sealer: Rodrick Jones MD NRBC Automated 0.0 per 100 WBC Normal 0.0 [facility] Comment on above: Performed By: #### I FX, URI, C4, PE, FKLLC, C3, PTHNCA #### [address] [address] Block Sealer: Rodrick Jones MD Platelet mean volume (Bld) [Entitic vol] 10.2 fL Normal 8.1-13.5 [facility] Comment on above: Performed By: #### I FX, URI, C4, PE, FKLLC, C3, PTHNCA #### [address] [address] Block Sealer: Rodrick Jones MD Platelets (Bld) [#/Vol] 227 10*3/uL Normal 138-453 [facility] Comment on above: Performed By: #### I FX, URI, C4, PE, FKLLC, C3, PTHNCA #### [address] [address] Block Sealer: Rodrick Jones MD RBC (Bld) [#/Vol] 4.08 10*6/uL Low 4.21-5.77 [facility] Comment on above: Performed By: #### I FX, URI, C4, PE, FKLLC, C3, PTHNCA #### [place] [address] Block Sealer: Rodrick Jones MD WBC (Bld) [#/Vol] 7.9 10*3/uL Normal 3.5-11.3 [facility] Comment on above: Performed By: #### I FX, URI, C4, PE, FKLLC, C3, PTHNCA #### [address] [address] Block Sealer: Rodrick Jones MD Hematocrit (Bld) [Volume fraction] 38.1 % Low 40.7 - 50.3 % [facility] Hemoglobin (Bld) [Mass/Vol] 12.5 g/dL Low 13.0 - 17.0 g/dL [facility] Interpretation and review of laboratory results Abnormal [facility] MCH (RBC) [Entitic mass] 30.6 pg 25.2 - 33.5 pg [facility] MCHC (RBC) [Mass/Vol] 32.8 g/dL 28.4 - 34.8 g/dL [facility] MCV (RBC) [Entitic vol] 93.4 fL 82.6 - 102.9 fL [facility] NRBC Automated 0.0 0.0 per 100 WBC [facility] Platelet distribution width (Bld) [Ratio] 14.2 % 11.8 - 14.4 % [facility] Platelet mean volume (Bld) [Entitic vol] 10.2 fL 8.1 - 13.5 fL [facility] Platelets (Bld) [#/Vol] 227 10*3/uL [facility] RBC (Bld) [#/Vol] 4.08 10*6/uL Low 4.21 - 5.7 7 m/uL [facility] WBC (Bld) [#/Vol] 7.9 10*3/uL [facility] EKG 12 LeadOrdered By: Unkno wn Result on 05-31-2022 Atrial Rate 82 BPM [facility] P-R Interval 186 ms [facility] Q-T Interval 396 ms [facility] QRS Duration 108 ms [facility] QTc Calculation (Bazett) 462 ms [facility] R [place] -155 degrees [facility] T [place] -172 degrees [facility] Ventricular Rate 82 BPM [facility] EKG 12 Leadon 05-31-2022 Normal sinus rhythm Right superior axis deviation T wave abnormality, consider inferior ischemia Abnormal ECG No previous ECGs available [facility] Result, Unknown Provider - 05/31/2022 Normal sinus rhythm Right superior axis deviation T wave abnormality, consider inferior ischemia Abnormal ECG No previous ECGs available [facility] Work Phone: Electrophoresis Protein, Ser umon 05-31-2022 Albumin % 51 % 45 - 65 % [facility] Albumin [Mass/Vol] 3.4 g/dL 3.2 - 5.2 g/dL [facility] Alpha 1 % 4 % 3 - 6 % [facility] Alpha 1 globulin Elph [Mass/Vol] 0.3 g/dL 0.1 - 0.4 g/dL [facility] Alpha 2 % 16 % High 6 - 13 % [facility] Alpha 2 globulin Elph [Mass/Vol] 1.1 g/dL High 0.5 - 0.9 g/dL [facility] Beta globulin Elph [Mass/Vol] 0.9 g/dL 0.5 - 1.1 g/dL [facility] Beta Percent 14 % 11 - 19 % [facility] Gamma Globulin % 15 % 9 - 20 % [facility] Gamma globulin Elph [Mass/Vol] 1 g/dL 0.5 - 1.5 g/dL [facility] Interpretation and review of laboratory results Abnormal [facility] Pathologist Cyto stain Nom (Cvx/Vag) [ID] ELECTRONICALLY SIGNED. KUSUM VILLAFANA M.D. [facility] Protein [Mass/Vol] 6.7 g/dL 6.4 - 8.3 g/dL [facility] Protein Electrophoresis, Serum ELEVATED ALPHA 2 GLOBULINS. MAY BE OBSERVED IN A VARIETY OF CONDITIONS ASSOCIATED WITH ACUTE TISSUE DAMAGE/NECROSIS AND/OR ACUTE INFECTION/INFLAMMATI ON, AND ALSO NEPHROTIC DISEASE. [facility] Comment on above: IMMUNOFIXATION IS NE GATIVE FOR MONOCLONAL IMMUNOGLOBULIN. Total Prot. Sum 6.7 g/dL 6.3 - 8.2 g/dL [facility] Total Prot. Sum,% 100 % 98 - 102 % [facility] Hemoglobin A1Con 05-31-2022 Glucose [Mass/Vol] 160 mg/dL Normal [facility] Comment on above: Result Comment: The ADA and AACC recommend providing the estimated average glucose result to permit better patient understanding of their HBA1c result. Performed By: #### B MP, CBC #### [facility] [address] [place], [place] [id number] Block Sealer: Rodrick Jones MD HbA1c (Bld) [Mass fraction] 7.2 % High 4.0-6.0 [facility] Comment on above: Performed By: #### B MP, CBC #### [facility] [address] [place], [place] [id number] Block Sealer: Rodrick Jones MD Average glucose Estimated from glycated hemoglobin (Bld) [Mass/Vol] 160 mg/dL [facility] Comment on above: The ADA and AACC rec ommend providing the estimated average glucose result to permit better patient understanding of their HBA1c result. HbA1c (Bld) [Mass fraction] 7.2 % High 4.0 - 6.0 % [facility] Interpretation and review of laboratory results Abnormal [facility] Immunofixation serum profile on 05-31-2022 Pathologist Cyto stain Nom (Cvx/Vag) [ID] ELECTRONICALLY SIGNED. KUSUM VILLAFANA M.D. [facility] Serum IFX Interp IMMUNOFIXATION IS NEGATIVE FOR MONOCLONAL IMMUNOGLOBULIN. [facility] Immunofixation,Bloodon 05-31 IFX - Interpret. IMMUNOFIXATION IS NEGATIVE FOR MONOCLONAL IMMUNOGLOBULIN. Normal [facility] Comment on above: Performed By: #### B MP, CBC #### [facility] [address] [place] [address] Block Sealer: Rodrick Jnoes MD No Panel Informationon 05-31 Interpretation and review of laboratory results Abnormal [facility] POC Glucose Fingerstickon Glucose [Mass/Vol] 63 mg/dL Low 75 - 110 mg/dL [facility] Interpretation and review of laboratory results Abnormal [facility] Glucose [Mass/Vol] 81 mg/dL 75 - 110 mg/dL [facility] Glucose [Mass/Vol] 68 mg/dL Low 75 - 110 mg/dL [facility] Glucose [Mass/Vol] 135 mg/dL High 75 - 110 mg/dL [facility] Glucose [Mass/Vol] 57 mg/dL Low 75 - 110 mg/dL [facility] Comment on above: Critical Noted Interpretation and review of laboratory results Abnormal [facility] Glucose [Mass/Vol] 75 mg/dL 75 - 110 mg/dL [facility] Glucose [Mass/Vol] 218 mg/dL High 75 - 110 mg/dL [facility] Interpretation and review of laboratory results Abnormal [facility] Glucose [Mass/Vol] 238 mg/dL High 75 - 110 mg/dL [facility] Interpretation and review of laboratory results Abnormal [facility] Glucose [Mass/Vol] 169 mg/dL High 75 - 110 mg/dL [facility] Interpretation and review of laboratory results Abnormal [facility] Prot. Electroph, Blon 2022 Pathologist Review: ELECTRONICALLY SIGNED. KUSUM VILLAFANA M.D. Normal [facility] Comment on above: Performed By: #### B MP, CBC #### [id number] [address] [place], [place] [id number] Block Sealer: Rodrick Jones MD Prot. Elect-Interp ELEVATED ALPHA 2 GLOBULINS. MAY BE OBSERVED IN A VARIETY OF CONDITIONS Normal [facility] Comment on above: Result Comment: ASSO CIATED WITH ACUTE TISSUE DAMAGE/NECROSIS AND/OR ACUTE INFECTION/INFLAMMATION, AND ALSO NEPHROTIC DISEASE. IMMUNOFIXATION IS NEGATIVE FOR MONOCLONAL IMMUNOGLOBULIN. Performed By: #### B MP, CBC #### [facility] [address] [place] [address] Block Sealer: Rodrick Jones MD CBCon 1 Erythrocyte distribution width (RBC) [Ratio] 14.2 % Normal 11.8-14.4 [facility] Comment on above: Performed By: #### B MP, CBC #### [facility] [address] [place] [address] Block Sealer: Rodrick Jones MD Hematocrit (Bld) [Volume fraction] 41.1 % Normal 40.7-50.3 [facility] Comment on above: Performed By: #### B MP, CBC #### [address] [address] Block Sealer: Rodrick Jones MD Hemoglobin (Bld) [Mass/Vol] 13.2 g/dL Normal 13.0-17.0 [facility] Comment on above: Performed By: #### B MP, CBC #### [address] [address] Block Sealer: Rodrick Jones MD MCH (RBC) [Entitic mass] 30.6 pg Normal 25.2-33.5 [facility] Comment on above: Performed By: #### B MP, CBC #### [address] [address] Block Sealer: Rodrick Jones MD MCHC (RBC) [Mass/Vol] 32.1 g/dL Normal 28.4-34.8 [facility] Comment on above: Performed By: #### B MP, CBC #### [address] [address] Block Sealer: Rodrick Jones MD MCV (RBC) [Entitic vol] 95.1 fL Normal 82.6-102.9 [facility] Comment on above: Performed By: #### B MP, CBC #### [address] [address] Block Sealer: Rodrick Jones MD NRBC Automated 0.0 per 100 WBC Normal 0.0 [facility] Comment on above: Performed By: #### B MP, CBC #### [address] [address] Block Sealer: Rodrick Jones MD Platelet mean volume (Bld) [Entitic vol] 10.2 fL Normal 8.1-13.5 [facility] Comment on above: Performed By: #### B MP, CBC #### [address], [place] [id number] Block Sealer: Rodrick Jones MD Platelets (Bld) [#/Vol] 206 10*3/uL Normal 138-453 [facility] Comment on above: Performed By: #### B MP, CBC #### [facility] [place] [address] Block Sealer: Rodrick Jones MD RBC (Bld) [#/Vol] 4.32 10*6/uL Normal 4.21-5.77 [facility] Comment on above: Performed By: #### B MP, CBC #### [facility] [address] [place] [address] Block Sealer: Rodrick Jones MD WBC (Bld) [#/Vol] 8.3 10*3/uL Normal 3.5-11.3 [facility] Comment on above: Performed By: #### B MP, CBC #### [address] [address] Block Sealer: Rodrick Jones MD Hematocrit (Bld) [Volume fraction] 41.1 % 40.7 - 50.3 % [facility] Hemoglobin (Bld) [Mass/Vol] 13.2 g/dL 13.0 - 17.0 g/dL [facility] MCH (RBC) [Entitic mass] 30.6 pg 25.2 - 33.5 pg [facility] MCHC (RBC) [Mass/Vol] 32.1 g/dL 28.4 - 34.8 g/dL [facility] MCV (RBC) [Entitic vol] 95.1 fL 82.6 - 102.9 fL [facility] NRBC Automated 0.0 0.0 per 100 WBC [facility] Platelet distribution width (Bld) [Ratio] 14.2 % 11.8 - 14.4 % [facility] Platelet mean volume (Bld) [Entitic vol] 10.2 fL 8.1 - 13.5 fL [facility] Platelets (Bld) [#/Vol] 206 10*3/uL [facility] RBC (Bld) [#/Vol] 4.32 10*6/uL 4.21 - 5.7 7 m/uL [facility] WBC (Bld) [#/Vol] 8.3 10*3/uL [facility] Comp Metabolic Pr/rfx MGon 0 2- Albumin [Mass/Vol] 3.0 g/dL Low 3.5-5.2 [facility] Comment on above: Performed By: #### B MP, CBC #### [facility] [address] [place] [address] Block Sealer: Rodrick Jones MD Albumin/Glob Ratio 0.8 Low 1.0-2.5 [facility] Comment on above: Performed By: #### B MP, CBC #### [facility] [address] [place] [address] 42694 Block Sealer: Rodrick Jones MD Alkaline Phos 97 U/L Normal 40-129 [facility] Comment on above: Performed By: #### B MP, CBC #### [facility] [address] [place] [address] 69696 Block Sealer: Rodrick Jones MD ALT [Catalytic activity/Vol] 19 U/L Normal 5-41 [facility] Comment on above: Performed By: #### B MP, CBC #### [facility] [address] [place] [address] 26541 Block Sealer: Rodrick Jones MD Anion gap [Moles/Vol] 14 mmol/L Normal 9-17 [facility] Comment on above: Performed By: #### B MP, CBC #### [facility] [address] [place] [address] 26457 Block Sealer: Rodrick Jones MD AST [Catalytic activity/Vol] 24 U/L Normal <40 [facility] Comment on above: Performed By: #### B MP, CBC #### [facility] [address] [place] [address] Block Sealer: Rodrick Jones MD Bilirubin [Mass/Vol] 0.3 mg/dL Normal 0.3-1.2 [facility] Comment on above: Performed By: #### B MP, CBC #### [facility] [address] [place] [address] 49899 Block Sealer: Rodrick Jones MD Calcium [Mass/Vol] 8.6 mg/dL Normal 8.6-10.4 [facility] Comment on above: Performed By: #### B MP, CBC #### [facility] [address] [place] [address] 29401 Block Sealer: Rodrick Jones MD Chloride [Moles/Vol] 109 mmol/L High 98-107 [facility] Comment on above: Performed By: #### B MP, CBC #### [facility] [address] [place] [address] 41627 Block Sealer: Rodrick Jones MD CO2 [Moles/Vol] 20 mmol/L Normal 20-31 [facility] Comment on above: Performed By: #### B MP, CBC #### [facility] [address] [place] [address] 72610 Block Sealer: Rodrick Jones MD Creatinine [Mass/Vol] 4.53 mg/dL High 0.70-1.20 [facility] Comment on above: Performed By: #### B MP, CBC #### [facility] [address] [place] [address] 13200 Block Sealer: Rodrick Jones MD GFR/1.73 sq M.predicted among non-blacks MDRD (S/P/Bld) [Vol rate/Area] 14 mL/min/{1.73_m2} Low >60 [facility] Comment on above: Result Comment: These [...] Performed By: #### B MP, CBC #### [facility] [address] [place] [address] 93649 Block Sealer: Rodrick Jones MD Glucose [Mass/Vol] 189 mg/dL High 70-99 [facility] Comment on above: Performed By: #### B MP, CBC #### [facility] [address] [place] [address] 73446 Block Sealer: Rodrick Jones MD Potassium [Moles/Vol] 4.3 mmol/L Normal 3.7-5.3 [facility] Comment on above: Performed By: #### B MP, CBC #### [facility] [address] [place] [address] 15556 Block Sealer: Rodrick Jones MD Protein [Mass/Vol] 6.6 g/dL Normal 6.4-8.3 [facility] Comment on above: Performed By: #### B MP, CBC #### [facility] [address] [place] [address] 77152 Block Sealer: Rodrick Jones MD Sodium [Moles/Vol] 143 mmol/L Normal 135-144 [facility] Comment on above: Performed By: #### B MP, CBC #### [facility] [address] [place] [address] 51978 Block Sealer: Rodrick Jones MD Urea nitrogen [Mass/Vol] 71 mg/dL High 8-23 [facility] Comment on above: Performed By: #### B MP, CBC #### [facility] [address] [place] [address] 20515 Block Sealer: Rodrick Jones MD Comprehensive Metabolic Pane l w/ Reflex to on 05-30-2022 Albumin [Mass/Vol] 3 g/dL Low 3.5 - 5.2 g/dL [facility] Albumin/Globulin [Mass ratio] 0.8 {ratio} Low 1.0 - 2.5 [facility] ALP [Catalytic activity/Vol] 97 U/L 40 - 129 U/L [facility] ALT [Catalytic activity/Vol] 19 U/L 5 - 41 U/L [facility] Anion gap [Moles/Vol] 14 mmol/L 9 - 17 mmol/L [facility] AST [Catalytic activity/Vol] 24 U/L NINF - 40 U/L [facility] Bilirubin [Mass/Vol] 0.3 mg/dL 0.3 - 1 .2 mg/dL [facility] Calcium [Mass/Vol] 8.6 mg/dL 8.6 - 10. 4 mg/dL [facility] Chloride [Moles/Vol] 109 mmol/L High 98 - 10 7 mmol/L [facility] CO2 [Moles/Vol] 20 mmol/L 20 - 31 mmol/L [facility] Creatinine [Mass/Vol] 4.53 mg/dL High 0.70 - 1.20 mg/dL [facility] GFR/1.73 sq M.predicted MDRD (S/P/Bld) [Vol rate/Area] 14 mL/min/{1.73_m2} Low - PINF [facility] Comment on above: These results are not [...] 189 mg/dL High 70 - 99 mg/dL [facility] Interpretation and review of laboratory results Abnormal [facility] Potassium [Moles/Vol] 4.3 mmol/L 3.7 - 5.3 mmol/L [facility] Protein [Mass/Vol] 6.6 g/dL 6.4 - 8.3 g/dL [facility] Sodium [Moles/Vol] 143 mmol/L 135 - 144 mmol/L [facility] Urea nitrogen [Mass/Vol] 71 mg/dL High 8 - 23 mg/dL [facility] Electrolyte Panelon 05-30-19 Anion gap [Moles/Vol] 13 mmol/L 9 - 17 mmol/L [facility] Chloride [Moles/Vol] 107 mmol/L 98 - 10 7 mmol/L [facility] CO2 [Moles/Vol] 21 mmol/L 20 - 31 mmol/L [facility] Potassium [Moles/Vol] 3.9 mmol/L 3.7 - 5.3 mmol/L [facility] Sodium [Moles/Vol] 141 mmol/L 135 - 144 mmol/L [facility] Anion gap [Moles/Vol] 16 mmol/L 9 - 17 mmol/L [facility] Chloride [Moles/Vol] 107 mmol/L 98 - 10 7 mmol/L [facility] CO2 [Moles/Vol] 20 mmol/L 20 - 31 mmol/L [facility] Interpretation and review of laboratory results Abnormal [facility] Potassium [Moles/Vol] 3.6 mmol/L Low 3.7 - 5.3 mmol/L [facility] Sodium [Moles/Vol] 143 mmol/L 135 - 144 mmol/L [facility] Electrolyteson 05-30-2022 Anion gap [Moles/Vol] 13 mmol/L Normal 9-17 [facility] Comment on above: Performed By: #### B MP, CBC #### [facility] [address] [place] [address] 43608 Block Sealer: Rodrick Jones MD Chloride [Moles/Vol] 107 mmol/L Normal 98-107 [facility] Comment on above: Performed By: #### B MP, CBC #### [facility] [address] [place] [address] 43608 Block Sealer: Rodrick Jones MD CO2 [Moles/Vol] 21 mmol/L Normal 20-31 [facility] Comment on above: Performed By: #### B MP, CBC #### [address] [address] Block Sealer: Rodrick Jones MD Potassium [Moles/Vol] 3.9 mmol/L Normal 3.7-5.3 [facility] Comment on above: Performed By: #### B MP, CBC #### [address] [address] Block Sealer: Rodrick Jones MD Sodium [Moles/Vol] 141 mmol/L Normal 135-144 [facility] Comment on above: Performed By: #### B MP, CBC #### [address] [address] Block Sealer: Rodrick Jones MD Anion gap [Moles/Vol] 16 mmol/L Normal 9-17 [facility] Comment on above: Performed By: #### B MP, CBC #### [address] [address] Block Sealer: Rodrick Jones MD Chloride [Moles/Vol] 107 mmol/L Normal 98-107 [facility] Comment on above: Performed By: #### B MP, CBC #### [address] [address] Block Sealer: Rodrick Jones MD CO2 [Moles/Vol] 20 mmol/L Normal 20-31 [facility] Comment on above: Performed By: #### B MP, CBC #### [address] 8[address] Block Sealer: Rodrick Jones MD Potassium [Moles/Vol] 3.6 mmol/L Low 3.7-5.3 [facility] Comment on above: Performed By: #### B MP, CBC #### [facility] [place] [address] Block Sealer: Rodrick Jones MD Sodium [Moles/Vol] 143 mmol/L Normal 135-144 [facility] Comment on above: Performed By: #### B MP, CBC #### [facility] [address] [place] [address] 89692 Block Sealer: Rodrick Jones MD Hemoglobin A1Con 05-30-2022 Glucose [Mass/Vol] 160 mg/dL Normal [facility] Comment on above: Result Comment: The ADA and AACC recommend providing the estimated average glucose result to permit better patient understanding of their HBA1c result. Performed By: #### C CRESCENCIO URIARTE CBC, MG #### [facility] [address] [place] [address] 11059 Block Sealer: Rodrick Jones MD HbA1c (Bld) [Mass fraction] 7.2 % High 4.0-6.0 [facility] Comment on above: Performed By: #### C CRESCENICO URIARTE, CBC, MG #### [facility] [address] [place] [address] 94385 Block Sealer: Rodrick Jones MD Average glucose Estimated from glycated hemoglobin (Bld) [Mass/Vol] 160 mg/dL [facility] Comment on above: The ADA and AACC rec ommend providing the estimated average glucose result to permit better patient understanding of their HBA1c result. HbA1c (Bld) [Mass fraction] 7.2 % High 4.0 - 6.0 % [facility] [employer] Interpretation and review of laboratory results Abnormal [employer] [facility] [employer] Magnesiumon 05-30-2022 Magnesium [Mass/Vol] 1.9 mg/dL Normal 1.6-2.6 [facility] Comment on above: Performed By: #### B MP, CBC #### [facility] [address] [place] [address] [phone] Block Sealer: Rodrick Jones MD Magnesium [Mass/Vol] 1.9 mg/dL 1.6 - 2 .6 mg/dL [facility] No Panel Informationon 05-30 [facility] POC Glucose Fingerstickon Glucose [Mass/Vol] 197 mg/dL High 75 - 110 mg/dL [facility] Interpretation and review of laboratory results Abnormal [facility] Glucose [Mass/Vol] 189 mg/dL High 75 - 110 mg/dL [facility] Interpretation and review of laboratory results Abnormal [facility] Glucose [Mass/Vol] 146 mg/dL High 75 - 110 mg/dL [facility] Interpretation and review of laboratory results Abnormal [facility] Prot. Electroph, Blon 2022 Albumin [Mass/Vol] 3.4 g/dL Normal 3.2-5.2 [facility] Comment on above: Performed By: #### B MP, CBC #### [facility] [address] [place] [address] 59233 Block Sealer: Rodrick Jones MD Albumin, % 51 % Normal 45-65 [facility] Comment on above: Performed By: #### B MP, CBC #### [facility] [address] [place] [address] 54665 Block Sealer: Rodrick Jones MD Tvkab-5-mqzqjoyza 0.3 g/dL Normal 0.1-0.4 [facility] Comment on above: Performed By: #### B MP, CBC #### [facility] [address] [place] [address] Block Sealer: Rodrick Jones MD Ulfhq-7-sclaomqyv,% 4 % Normal 3-6 [facility] Comment on above: Performed By: #### B MP, CBC #### [id number] [address] [place] [address] 94859 Block Sealer: Rodrick Jones MD Aiotb-1-cboalrnsg 1.1 g/dL High 0.5-0.9 [facility] Comment on above: Performed By: #### B MP, CBC #### [facility] [address] [place] [address] 90024 Block Sealer: Rodrick Jones MD Jkpdn-1-tzzjqpvxx,% 16 % High 6-13 [facility] Comment on above: Performed By: #### B MP, CBC #### [address] 6[address]65 Block Sealer: Rodrick Jones MD Beta-globulins 0.9 g/dL Normal 0.5-1.1 [facility] Comment on above: Performed By: #### B MP, CBC #### [facility] [address] [place] [address] 53114 Block Sealer: Rodrick Jones MD Beta-globulins,% 14 % Normal 11-19 [facility] Comment on above: Performed By: #### B MP, CBC #### [address] 0[address]42 Block Sealer: Rodrick Jones MD Gamma-globulins 1.0 g/dL Normal 0.5-1.5 [facility] Comment on above: Performed By: #### B MP, CBC #### [address] 81887 Block Sealer: Rodrick Jones MD Gamma-globulins,% 15 % Normal 9-20 [facility] Comment on above: Performed By: #### B MP, CBC #### [address] [address]40 Block Sealer: Rodrick Jones MD Total Prot. Sum 6.7 g/dL Normal 6.3-8.2 [facility] Comment on above: Performed By: #### B MP, CBC #### [facility] [address] [place] [address] [phone] Block Sealer: Rodrick Jones MD Total Prot. Sum,% 100 % Normal 98-102 [facility] Comment on above: Performed By: #### B MP, CBC #### [facility] [address] [place], [place] [phone] Block Sealer: Rodrick Jones MD CULTURE URINEon 05-29-2022 CULTURE [...] Trimethoprim/Sulfame thoxazole <=10 S F Normal [facility] Comment on above: Performed By: #### C BC #### [facility] [address] [place] [address] Dr. Kalie Rodas Comp Metabolic Pr/rfx MGon 0 05-29-2022 GFR/1.73 sq M.predicted among non-blacks MDRD (S/P/Bld) [Vol rate/Area] 10 mL/min/{1.73_m2} Low >60 [facility] Comment on above: Result Comment: These [...] Performed By: #### B MP, CBC #### [facility] [address] [place], [place] [phone] Block Sealer: Rodrick Jones MD Albumin [Mass/Vol] 3.1 g/dL Low 3.5-5.2 [facility] Comment on above: Performed By: #### B MP, CBC #### [facility] [address] [place] [address] 34114 Block Sealer: Rodrick Jones MD Albumin/Glob Ratio 0.8 Low 1.0-2.5 [facility] Comment on above: Performed By: #### B MP, CBC #### [facility] [address] [place] [address] 42929 Block Sealer: Rodrick Jones MD Alkaline Phos 104 U/L Normal 40-129 [facility] Comment on above: Performed By: #### B MP, CBC #### [facility] [address] [place] [address] 21099 Block Sealer: Rodrick Jones MD ALT [Catalytic activity/Vol] 21 U/L Normal 5-41 [facility] Comment on above: Performed By: #### B MP, CBC #### [address] [address] Block Sealer: Rodrick Jones MD Anion gap [Moles/Vol] 20 mmol/L High 9-17 [facility] Comment on above: Performed By: #### B MP, CBC #### [facility] [address] [place] [address] 95352 Block Sealer: Rodrick Jones MD AST [Catalytic activity/Vol] 32 U/L Normal <40 [facility] Comment on above: Performed By: #### B MP, CBC #### [facility] [address] [place] [address] 79284 Block Sealer: Rodrick Jones MD Bilirubin [Mass/Vol] 0.4 mg/dL Normal 0.3-1.2 [facility] Comment on above: Performed By: #### B MP, CBC #### [address] [address] Block Sealer: Rodrick Jones MD Calcium [Mass/Vol] 9.1 mg/dL Normal 8.6-10.4 [facility] Comment on above: Performed By: #### B MP, CBC #### [facility] [address] [place] [address] 96966 Block Sealer: Rodrick Jones MD Chloride [Moles/Vol] 105 mmol/L Normal 98-107 [facility] Comment on above: Performed By: #### B MP, CBC #### [address] [address] Block Sealer: Rodrick Jones MD CO2 [Moles/Vol] 14 mmol/L Low 20-31 [facility] Comment on above: Performed By: #### B MP, CBC #### [facility] [address] [place] [address] 90520 Block Sealer: Rodrick Jnoes MD Glucose [Mass/Vol] 187 mg/dL High 70-99 [facility] Comment on above: Performed By: #### B MP, CBC #### [address] [address] Block Sealer: Rodrick Jones MD Potassium [Moles/Vol] 4.6 mmol/L Normal 3.7-5.3 [facility] Comment on above: Performed By: #### B MP, CBC #### [facility] [address] [place] [address] 13359 Block Sealer: Rodrick Jones MD Protein [Mass/Vol] 7.1 g/dL Normal 6.4-8.3 [facility] Comment on above: Performed By: #### B MP, CBC #### [facility] [address] [place] [address] 20890 Block Sealer: Rodrick Jones MD Sodium [Moles/Vol] 139 mmol/L Normal 135-144 [facility] Comment on above: Performed By: #### B MP, CBC #### [facility] [address] [place], [place] [phone] Block Sealer: Rodrick Jones MD Urea nitrogen [Mass/Vol] 78 mg/dL High 8-23 [facility] Comment on above: Performed By: #### B MP, CBC #### [facility] [address] [place], [place] [phone] Block Sealer: Rodrick Jones MD Creatinine [Mass/Vol] 5.79 mg/dL Critically high 0.70-1.20 [facility] Comment on above: Previous Alert Value Reported Result Comment: Prev ious Alert Value Reported Performed By: #### B MP, CBC #### [facility] [place], [place] [phone] Block Sealer: Rodrick Jones MD Comprehensive Metabolic Pane l w/ Reflex to MGon 05-29-2022 Albumin [Mass/Vol] 3.1 g/dL Low 3.5 - 5.2 g/dL [facility] Albumin/Globulin [Mass ratio] 0.8 {ratio} Low 1.0 - 2.5 [facility] ALP [Catalytic activity/Vol] 104 U/L 40 - 129 U/L [facility] ALT [Catalytic activity/Vol] 21 U/L 5 - 41 U/L [facility] Anion gap [Moles/Vol] 20 mmol/L High 9 - 17 mmol/L [facility] AST [Catalytic activity/Vol] 32 U/L NINF - 40 U/L [facility] Bilirubin [Mass/Vol] 0.4 mg/dL 0.3 - 1 .2 mg/dL [facility] Calcium [Mass/Vol] 9.1 mg/dL 8.6 - 10. 4 mg/dL [facility] Chloride [Moles/Vol] 105 mmol/L 98 - 10 7 mmol/L [facility] CO2 [Moles/Vol] 14 mmol/L Low 20 - 31 mmol/L [facility] GFR/1.73 sq M.predicted MDRD (S/P/Bld) [Vol rate/Area] 10 mL/min/{1.73_m2} Low - PINF [facility] Comment on above: These results are not [...] 187 mg/dL High 70 - 99 mg/dL [facility] Interpretation and review of laboratory results Abnormal [facility] Potassium [Moles/Vol] 4.6 mmol/L 3.7 - 5.3 mmol/L [facility] Protein [Mass/Vol] 7.1 g/dL 6.4 - 8.3 g/dL [facility] Sodium [Moles/Vol] 139 mmol/L 135 - 144 mmol/L [facility] Urea nitrogen [Mass/Vol] 78 mg/dL High 8 - 23 mg/dL [facility] Cult,Urineon 05-29-2022 Cult,Urine Specimen Description .BLADDER URINE FROM CYSTOSCOPY Culture NO SIGNIFICANT GROWTH Report Status FINAL 05/29/2022 Normal [facility] Comment on above: Performed By: #### B MP, CBC #### [id number] [address] [place] [address]608 Block Sealer: Rodrick Jones MD Cult,Urine Specimen Description .CLEAN CATCH URINE Culture NO SIGNIFICANT GROWTH Report Status FINAL 05/29/2022 Normal [facility] Comment on above: Performed By: #### B MP, CBC #### [id number] [address] [place] [address]608 Block Sealer: Rodrick Jones MD Culture, Urineon 05-29-2022 Microorganism identified Cx Nom (Unsp spec) NO SIGNIFICANT GROWTH [facility] Specimen Description .BLADDER URINE FROM CYSTOSCOPY [facility] Microorganism identified Cx Nom (Unsp spec) NO SIGNIFICANT GROWTH [facility] Specimen Description .CLEAN CATCH URINE [facility] Electrolyte Panelon 05-29-19 Anion gap [Moles/Vol] 15 mmol/L 9 - 17 mmol/L [facility] Chloride [Moles/Vol] 106 mmol/L 98 - 10 7 mmol/L [facility] CO2 [Moles/Vol] 19 mmol/L Low 20 - 31 mmol/L [facility] Interpretation and review of laboratory results Abnormal [facility] Potassium [Moles/Vol] 4.0 mmol/L 3.7 - 5.3 mmol/L [facility] Sodium [Moles/Vol] 140 mmol/L 135 - 144 mmol/L [facility] Electrolyteson 05-29-2022 Anion gap [Moles/Vol] 15 mmol/L Normal 9-17 [facility] Comment on above: Performed By: #### C RP, RENP, CBC, MG #### [id number] [address] [place] [address] Block Sealer: Rodrick Jones MD Chloride [Moles/Vol] 106 mmol/L Normal 98-107 [facility] Comment on above: Performed By: #### C RP, RENP, CBC, MG #### [facility] [address] [place] [address] [phone] Block Sealer: Rodrick Jones MD CO2 [Moles/Vol] 19 mmol/L Low 20-31 [facility] Comment on above: Performed By: #### C RP, RENP, CBC, MG #### [id number] [address] [place] [address] Block Sealer: Rodrick Jones MD Potassium [Moles/Vol] 4.0 mmol/L Normal 3.7-5.3 [facility] Comment on above: Performed By: #### C RP, RENP, CBC, MG #### [id number] [address] [place] [address]000 Block Sealer: Rodrick Jones MD Sodium [Moles/Vol] 140 mmol/L Normal 135-144 [facility] Comment on above: Performed By: #### C RP, RENP, CBC, MG #### [facility] [address] [place] [address]253 Block Sealer: Rodrick Jones MD [place] + Lambdaon 2022 [place] Lt Chains 7.89 mg/dL High 0.37-1.94 [facility] Comment on above: Performed By: #### B MP, CBC #### [facility] [address] [place] [address] 41753 Block Sealer: Rodrick Jones MD [place]/Lambda Rat 1.63 Normal 0.26-1.65 [facility] Comment on above: Performed By: #### B MP, CBC #### [facility] [address] [place] [address] 01771 Block Sealer: Rodrick Jones MD [place]/Lambda Quantitative Fr ee Light Chains, Serumon 05-29-2022 [place]/Lambda Ratio 1.63 0.26 - 1.65 [facility] Immunoglobulin light chains.kappa.free (S) [Mass/Vol] 7.89 mg/dL High 0.37 - 1.94 mg/dL [facility] Immunoglobulin light chains.lambda.free [Mass/Vol] 4.85 mg/dL High 0.57 - 2.63 mg/dL [facility] Interpretation and review of laboratory results Abnormal [facility] Magnesiumon 05-29-2022 Magnesium [Mass/Vol] 1.8 mg/dL Normal 1.6-2.6 [facility] Comment on above: Performed By: #### B MP, CBC #### [facility] [place], [place] [phone] Block Sealer: Rodrick Jones MD Magnesium [Mass/Vol] 1.8 mg/dL 1.6 - 2 .6 mg/dL [facility] No Panel Informationon 05-29 [facility] POC Glucose Fingerstickon Glucose [Mass/Vol] 290 mg/dL High 75 - 110 mg/dL [facility] Interpretation and review of laboratory results Abnormal [facility] Glucose [Mass/Vol] 307 mg/dL High 75 - 110 mg/dL [facility] Interpretation and review of laboratory results Abnormal [facility] Glucose [Mass/Vol] 187 mg/dL High 75 - 110 mg/dL [facility] Interpretation and review of laboratory results Abnormal [facility] Glucose [Mass/Vol] 165 mg/dL High 75 - 110 mg/dL [facility] Interpretation and review of laboratory results Abnormal [facility] Phosphoruson 05-29-2022 Interpretation and review of laboratory results Abnormal [facility] Phosphate [Mass/Vol] 5.6 mg/dL High 2.5 - 4 .5 mg/dL [facility] Phosphorus, Inorg.on 023 Phosphorus, Inorg. 5.6 mg/dL High 2.5-4.5 [facility] Comment on above: Performed By: #### B MP, CBC #### [facility] [address] [place] [address] Block Sealer: Rodrick Jones MD Prot. Electroph, Blon 2022 Protein [Mass/Vol] 6.7 g/dL Normal 6.4-8.3 [facility] Comment on above: Performed By: #### B MP, CBC #### [id number] [address] [place], [place] [phone] Block Sealer: Rodrick Jones MD US RETROPERITONEAL COMPLETEo n [...] Franklin Barker MD 05/28/22 Final result Normal [facility] XR CHEST PORTABLEon 05-29-19 XR CHEST PORTABLE EXAMINATION: ONE XRAY VIEW OF THE CHEST 05/29/2022 6:03 am COMPARISON: None. HISTORY: ORDERING SYSTEM PROVIDED HISTORY: sob TECHNOLOGIST PROVIDED HISTORY: sob 62-year-old male with shortness of breath FINDINGS: Portable upright view of the chest ekg monitor tech leads overlie the chest. Mild cardiomegaly. Mild [...] Jacob Garcia MD 05/29/22 Final result Normal [facility] 1. Mild cardiomegaly. Mild pulmonary vascular congestion. 2. Old granulomatous disease. 3. No confluent airspace consolidation. MHPN RIS CONSOLIDATED EXAMINATION: ONE XRAY VIEW OF THE CHEST 05/29/2022 6:03 am COMPARISON: None. HISTORY: ORDERING SYSTEM PROVIDED HISTORY: sob TECHNOLOGIST PROVIDED HISTORY: sob 62-year-old male with shortness of breath FINDINGS: Portable upright view of the chest ekg monitor tech leads overlie the chest. Mild cardiomegaly. Mild [...] FINDINGS: Portable upright view of the chest ekg monitor tech leads overlie the chest. Mild cardiomegaly. Mild pulmonary vascular congestion. No pneumothorax. Trachea midline. No confluent airspace consolidation or pleural effusions. Probable calcified granulomata projecting over the left lower lung zone. No acute osseous abnormality. IMPRESSION: 1. Mild cardiomegaly. Mild pulmonary vascular congestion. 2. Old granulomatous disease. 3. No confluent airspace consolidation. [employer] Phone: Radiology Study observation (narrative) [employer] Phone: XR CHEST PORTABLEOrdered By: Jacob Garcia on 05-29-2022 [employer] Phone: BLOOD CULTURE ID PANELon Bottle: Anaerobic Normal [facility] Comment on above: Performed By: #### C VDTBH #### [facility] [address] [place] [address] Dr. Kalie Rodas Site: Right AC Normal [facility] Comment on above: Performed By: #### C VDTBH #### [facility] [address] [place] [address] Dr. Kalie Nayak/Casie Resist. Gene Not Applicable Normal NOT DETECTED [facility] Comment on above: Performed By: #### C VDTBH #### [facility] [address] [place] [address] Dr. Kalie Rodas Brain Natri. Peptideon 05-28 Natriuretic peptide B (Bld) [Mass/Vol] 2234 pg/mL High <300 [facility] Comment on above: Result Comment: An age-independent cutoff point of 300 pg/ml has a 98% negative predictive value excluding acute heart failure. Performed By: #### B MP, CBC #### [facility] [address] [place] [phone] Block Sealer: Rodrick Jones MD Brain Natriuretic Peptideon 05-28-2022 Natriuretic peptide B (Bld) [Mass/Vol] 2234 pg/mL High NINF - 300 pg/mL [facility] Comment on above: An age-independent cutoff point of 300 pg/ml has a 98% negative predictive value excluding acute heart failure. C3on 05-28-2022 C3 185 mg/dL High 90-180 [facility] Comment on above: Performed By: #### I FX, URI, C4, PE, FKLLC, C3, PTHNCA #### [facility] [address] [place] [address] Block Sealer: Rodrick Jones MD C3 Complementon 05-28-2022 Complement C3 185 mg/dL High 90 - 180 mg/dL [facility] C4on 05-28-2022 C4 62 mg/dL High 10-40 [facility] Comment on above: Performed By: #### I FX, URI, C4, PE, FKLLC, C3, PTHNCA #### [facility] [address] [place] [address] [phone] Block Sealer: Rodrick Jones MD C4 Complementon 05-28-2022 Complement C4 62 mg/dL High 10 - 40 mg/dL [facility] CBCon 05-28-2022 Erythrocyte distribution width (RBC) [Ratio] 14.4 % Normal 11.8-14.4 [facility] Comment on above: Performed By: #### C CRESCENCIO URIARTE, CBC, MG #### [facility] [address] [place] [address] Block Sealer: Rodrick Jones MD Hematocrit (Bld) [Volume fraction] 48.9 % Normal 40.7-50.3 [facility] Comment on above: Performed By: #### C CRESCENCIO URIARTE, CBC, MG #### [facility] [address] [place] [address] Block Sealer: Rodrick Jones MD Hemoglobin (Bld) [Mass/Vol] 14.6 g/dL Normal 13.0-17.0 [facility] Comment on above: Performed By: #### C RP, RENP, CBC, MG #### [address] [address] Block Sealer: Rodrick Jones MD MCH (RBC) [Entitic mass] 30.9 pg Normal 25.2-33.5 [facility] Comment on above: Performed By: #### C RP, RENP, CBC, MG #### [address] [address] Block Sealer: Rodrick Jones MD MCHC (RBC) [Mass/Vol] 29.9 g/dL Normal 28.4-34.8 [facility] Comment on above: Performed By: #### C RP, RENP, CBC, MG #### [address] [address] Block Sealer: Rodrick Jones MD MCV (RBC) [Entitic vol] 103.4 fL High 82.6-102.9 [facility] Comment on above: Performed By: #### C RP, RENP, CBC, MG #### [place] [address] Block Sealer: Rodrick Jones MD NRBC Automated 0.0 per 100 WBC Normal 0.0 [facility] Comment on above: Performed By: #### C RP, RENP, CBC, MG #### [place] [address] Block Sealer: Rodrick Jones MD Platelet mean volume (Bld) [Entitic vol] 9.8 fL Normal 8.1-13.5 [facility] Comment on above: Performed By: #### C RP, RENP, CBC, MG #### [facility] [address] [place] [address] Block Sealer: Rodrick Jones MD Platelets (Bld) [#/Vol] 118 10*3/uL Low 138-453 [facility] Comment on above: Performed By: #### C RP, RENP, CBC, MG #### [facility] [place], [place] [phone] Block Sealer: Rodrick Jones MD RBC (Bld) [#/Vol] 4.73 10*6/uL Normal 4.21-5.77 [facility] Comment on above: Performed By: #### C RP, RENP, CBC, MG #### [facility] [address] [place], [place] [phone] Block Sealer: Rodrick Jones MD WBC (Bld) [#/Vol] 7.2 10*3/uL Normal 3.5-11.3 [facility] Comment on above: Performed By: #### C RP, RENP, CBC, MG #### [facility] [place], [place] [phone] Block Sealer: Rodrick Jones MD Hematocrit (Bld) [Volume fraction] 48.9 % 40.7 - 50.3 % [facility] Hemoglobin (Bld) [Mass/Vol] 14.6 g/dL 13.0 - 17.0 g/dL [facility] Interpretation and review of laboratory results Abnormal [facility] MCH (RBC) [Entitic mass] 30.9 pg 25.2 - 33.5 pg [facility] MCHC (RBC) [Mass/Vol] 29.9 g/dL 28.4 - 34.8 g/dL [facility] MCV (RBC) [Entitic vol] 103.4 fL High 82.6 - 102.9 fL [facility] NRBC Automated 0.0 0.0 per 100 WBC [facility] Platelet distribution width (Bld) [Ratio] 14.4 % 11.8 - 14.4 % [facility] Platelet mean volume (Bld) [Entitic vol] 9.8 fL 8.1 - 13.5 fL [facility] Platelets (Bld) [#/Vol] 118 10*3/uL Low [facility] RBC (Bld) [#/Vol] 4.73 10*6/uL 4.21 - 5.7 7 m/uL [facility] WBC (Bld) [#/Vol] 7.2 10*3/uL [facility] CBC AUTO DIFFon 05-28-2022 BASO # 0.1 103/ul Normal 0.0-0.1 [facility] Comment on above: Performed By: #### M ALBCRL #### [facility] [address] [address] [address] Kalie Rodas Basophils/100 WBC (Bld) 0.7 % Normal 0.2-2.0 [facility] Comment on above: Performed By: #### M ALBCRL #### [facility] [address] [place] [address] Dr. Kalie Rodas EO # 0.1 103/ul Normal 0.0-0.7 [facility] Comment on above: Performed By: #### M ALBCRL #### [facility] [address] [address] [address] Kalie Rodas Eosinophils/100 WBC (Bld) 0.5 % Critically low 0.9-7.0 [facility] Comment on above: Performed By: #### M ALBCRL #### [facility] [address] [place] [address] Dr. Kalie Rodas Erythrocyte distribution width (RBC) [Ratio] 14.0 % Normal 11.0-15.0 [facility] Comment on above: Performed By: #### M ALBCRL #### [facility] [address] [place] [address] Dr. Kalie Rodas Hematocrit (Bld) [Volume fraction] 38.1 % Critically low 42.0-54.0 [facility] Comment on above: Performed By: #### M ALBCRL #### [facility] [address] [place] [address] Dr. Kalie Rodas Hemoglobin (Bld) [Mass/Vol] 12.9 g/dL Critically low 14.0-18.0 [facility] Comment on above: Performed By: #### M ALBCRL #### [facility] [address] [address] [address] Kalie Rodas IG # 0.06 10e3/ul Critically high 0.00-0.03 [facility] Comment on above: Performed By: #### M ALBCRL #### [facility] [address] [address] [address] Kalie Rodas IG % 0.6 % Critically high 0.0-0.5 [facility] Comment on above: Performed By: #### M ALBCRL #### [facility] [address] [address] [address] Kalie Rodas LYMPH # 1.5 103/ul Normal 1.2-3.8 [facility] Comment on above: Performed By: #### M ALBCRL #### [facility] [address] [place] [address] Dr. Kalie Rodas Lymphocytes/100 WBC (Bld) 14.4 % Critically low 20.5-60.0 [facility] Comment on above: Performed By: #### M ALBCRL #### [facility] [address] [place] [address] Dr. Kalie Rodas MANUAL DIFF REQ NO Normal [facility] Comment on above: Performed By: #### M ALBCRL #### [facility] [address] [place] [address] Dr. Kalie Rodas MCH (RBC) [Entitic mass] 30.4 pg Normal 25.9-34.0 [facility] Comment on above: Performed By: #### M ALBCRL #### [facility] [address] [place] [address] Dr. Kalie Rodas MCHC (RBC) [Mass/Vol] 33.9 g/dL Normal 29.9-35.2 [facility] Comment on above: Performed By: #### M ALBCRL #### [facility] [address] [place] [address] Dr. Kalie Rodas MCV (RBC) [Entitic vol] 89.9 fL Normal 80.0-94.0 [facility] Comment on above: Performed By: #### M ALBCRL #### [facility] [address] [address] [address] Kalie Rodas MONO # 1.5 103/ul Critically high 0.3-0.8 [facility] Comment on above: Performed By: #### M ALBCRL #### [facility] [address] [address] [address] Kalie Rodas Monocytes/100 WBC (Bld) 13.6 % Critically high 1.7-12.0 [facility] Comment on above: Performed By: #### M ALBCRL #### [facility] [address] [place] [address] Dr. Kalie Rodas NEUT # 7.5 103/ul Critically high 1.4-6.5 [facility] Comment on above: Performed By: #### M ALBCRL #### [facility] [address] [place] [address] Dr. Kalie Rodas Neutrophils/100 WBC (Bld) 70.2 % Normal 43.0-75.0 [facility] Comment on above: Performed By: #### M ALBCRL #### [facility] [address] [place] [address] Dr. Kalie Rodas Platelet mean volume (Bld) [Entitic vol] 9.8 fL Normal 9.5-13.5 [facility] Comment on above: Performed By: #### M ALBCRL #### [facility] [address] [place] [address] Dr. Kalie Rodas PLT 205 103/ul Normal 150-450 [facility] Comment on above: Performed By: #### M ALBCRL #### [facility] [address] [place] [address] Dr. Kalie Rodas RBC 4.24 106/ul Critically low 4.70-6.10 [facility] Comment on above: Performed By: #### M ALBCRL #### [facility] [address] [place] [address] Dr. Kalie Rodas WBC 10.6 103/ul Normal 4.0-11.0 [facility] Comment on above: Performed By: #### M ALBCRL #### [facility] [address] [place] [address] Dr. Kalie LAM # 0.1 103/ul Normal 0.0-0.1 [facility] Comment on above: Performed By: #### C VDTBH #### [facility] [address] [place] [address] Dr. Kalie Rodas Basophils/100 WBC (Bld) 0.5 % Normal 0.2-2.0 [facility] Comment on above: Performed By: #### C VDTBH #### [facility] [address] [place] [address] Dr. Kalie Rodas EO # 0.0 103/ul Normal 0.0-0.7 [facility] Comment on above: Performed By: #### C VDTBH #### [facility] [address] [place] [address] Dr. Kalie Rodas Eosinophils/100 WBC (Bld) 0.2 % Critically low 0.9-7.0 [facility] Comment on above: Performed By: #### C VDTBH #### [facility] [address] [place] [address] Dr. Kalie Rodas Erythrocyte distribution width (RBC) [Ratio] 14.0 % Normal 11.0-15.0 [facility] Comment on above: Performed By: #### C VDTBH #### [facility] [address] [place] [address] Dr. Kalie Rodas Hematocrit (Bld) [Volume fraction] 38.1 % Critically low 42.0-54.0 [facility] Comment on above: Performed By: #### C VDTBH #### [facility] [address] [place] [address] Dr. Kalie Rodas Hemoglobin (Bld) [Mass/Vol] 13.1 g/dL Critically low 14.0-18.0 [facility] Comment on above: Performed By: #### C VDTBH #### [facility] [address] [place] [address] Dr. Kalie Rodas IG # 0.04 10e3/ul Critically high 0.00-0.03 [facility] Comment on above: Performed By: #### C VDTBH #### [facility] [address] [place] [address] Dr. Kalie Rodas IG % 0.4 % Normal 0.0-0.5 [facility] Comment on above: Performed By: #### C VDTBH #### [facility] [address] [place] [address] Dr. Kalie Rodas LYMPH # 1.6 103/ul Normal 1.2-3.8 [facility] Comment on above: Performed By: #### C VDTBH #### [facility] [address] [place] [address] Dr. Kalie Rodas Lymphocytes/100 WBC (Bld) 14.5 % Critically low 20.5-60.0 [facility] Comment on above: Performed By: #### C VDTBH #### [facility] [address] [place] [address] Dr. Kalie Rodas MANUAL DIFF REQ NO Normal [facility] Comment on above: Performed By: #### C VDTBH #### [facility] [address] [place] [address] Dr. Kalie Rodas MCH (RBC) [Entitic mass] 30.8 pg Normal 25.9-34.0 [facility] Comment on above: Performed By: #### C VDTBH #### [facility] [address] [place] [address] Dr. Kalie Rodas MCHC (RBC) [Mass/Vol] 34.4 g/dL Normal 29.9-35.2 [facility] Comment on above: Performed By: #### C VDTBH #### [facility] [address] [place] [address] Dr. Kalie Rodas MCV (RBC) [Entitic vol] 89.4 fL Normal 80.0-94.0 [facility] Comment on above: Performed By: #### C VDTBH #### [facility] [address] [place] [address] Dr. Kalie Rodas MONO # 1.4 103/ul Critically high 0.3-0.8 [facility] Comment on above: Performed By: #### C VDTBH #### [facility] [address] [place] [address] Dr. Kalie Rodas Monocytes/100 WBC (Bld) 12.8 % Critically high 1.7-12.0 [facility] Comment on above: Performed By: #### C VDTBH #### [facility] [address] [place] [address] Dr. Kalie Rodas NEUT # 7.9 103/ul Critically high 1.4-6.5 [facility] Comment on above: Performed By: #### C VDTBH #### [facility] [address] [place] [address] Dr. Kalie Rodas Neutrophils/100 WBC (Bld) 71.6 % Normal 43.0-75.0 [facility] Comment on above: Performed By: #### C VDTBH #### [facility] [address] [place] [address] Dr. Kalie Rodas Platelet mean volume (Bld) [Entitic vol] 9.5 fL Normal 9.5-13.5 [facility] Comment on above: Performed By: #### C VDTBH #### [facility] [address] [place] [address] Dr. Kalie Rodas PLT 200 103/ul Normal 150-450 [facility] Comment on above: Performed By: #### C VDTBH #### [facility] [address] [place] [address] Dr. Kalie Rodas RBC 4.26 106/ul Critically low 4.70-6.10 [facility] Comment on above: Performed By: #### C VDTBH #### [facility] [address] [place] [address] Dr. Kalie Rodas WBC 11.1 103/ul Critically high 4.0-11.0 [facility] Comment on above: Performed By: #### C VDTBH #### [facility] [address] [place] [address] Dr. Kalie Rodas Comp Metabolic Pr/rfx MGon 0 - Albumin [Mass/Vol] 2.8 g/dL Low 3.5-5.2 [facility] Comment on above: Performed By: #### B MP, CBC #### [facility] [address] [place] [address] Block Sealer: Rodrick Jones MD Albumin/Glob Ratio 0.6 Low 1.0-2.5 [facility] Comment on above: Performed By: #### B MP, CBC #### [facility] [address] [place] [address] Block Sealer: Rodrick Jones MD Alkaline Phos 107 U/L Normal 40-129 [facility] Comment on above: Result Comment: SPEC IMEN SLIGHTLY HEMOLYZED, RESULTS MAY BE ADVERSELY AFFECTED. Performed By: #### B MP, CBC #### [facility] [address] [place] [address] Block Sealer: Rodrick Jones MD ALT [Catalytic activity/Vol] 23 U/L Normal 5-41 [facility] Comment on above: Result Comment: SPEC IMEN SLIGHTLY HEMOLYZED, RESULTS MAY BE ADVERSELY AFFECTED. Performed By: #### B MP, CBC #### [facility] [address] [place] [address] Block Sealer: Rodrick Jones MD Anion gap [Moles/Vol] 19 mmol/L High 9-17 [facility] Comment on above: Performed By: #### B MP, CBC #### [facility] [address] [place] [address] Block Sealer: Rodrick Jones MD AST [Catalytic activity/Vol] 44 U/L High <40 [facility] Comment on above: Result Comment: SPEC IMEN SLIGHTLY HEMOLYZED, RESULTS MAY BE ADVERSELY AFFECTED. Performed By: #### B MP, CBC #### [facility] [address] [place] [address] Block Sealer: Rodrick Jones MD Bilirubin [Mass/Vol] 0.5 mg/dL Normal 0.3-1.2 [facility] Comment on above: Performed By: #### B MP, CBC #### [facility] [address] [place] [address] Block Sealer: Rodrick Jones MD Calcium [Mass/Vol] 9.0 mg/dL Normal 8.6-10.4 [facility] Comment on above: Performed By: #### B MP, CBC #### [facility] [address] [place] [address] Block Sealer: Rodrick Jones MD Chloride [Moles/Vol] 103 mmol/L Normal 98-107 [facility] Comment on above: Performed By: #### B MP, CBC #### [facility] [address] [place] [address] Block Sealer: Rodrick Jones MD CO2 [Moles/Vol] 9 mmol/L Critically low 20-31 [facility] Comment on above: Performed By: #### B MP, CBC #### [facility] [address] [place] [address] Block Sealer: Rodrick Jones MD Creatinine [Mass/Vol] 7.05 mg/dL Critically high 0.70-1.20 [facility] Comment on above: Performed By: #### B MP, CBC #### [facility] [address] [place] [address] Block Sealer: Rodrick Jones MD GFR/1.73 sq M.predicted among non-blacks MDRD (S/P/Bld) [Vol rate/Area] 8 mL/min/{1.73_m2} Low >60 [facility] Comment on above: Result Comment: These [...] Performed By: #### B MP, CBC #### [facility] [address] [place] [address] Block Sealer: Rodrick Jones MD Glucose [Mass/Vol] 153 mg/dL High 70-99 [facility] Comment on above: Performed By: #### B MP, CBC #### [facility] [address] [place] [address] Block Sealer: Rodrick Jones MD Potassium [Moles/Vol] 5.6 mmol/L High 3.7-5.3 [facility] Comment on above: Result Comment: SPEC IMEN SLIGHTLY HEMOLYZED, RESULTS MAY BE ADVERSELY AFFECTED. Performed By: #### B CECY, CBC #### [facility] [address] [place] [address] Block Sealer: Rodrick Jones MD Protein [Mass/Vol] 7.2 g/dL Normal 6.4-8.3 [facility] Comment on above: Performed By: #### B MP, CBC #### [facility] [address] [place] [address] Block Sealer: Rodrick Jones MD Sodium [Moles/Vol] 131 mmol/L Low 135-144 [facility] Comment on above: Performed By: #### B MP, CBC #### [facility] [address] [place] [address] Block Sealer: oRdrick Jones MD Urea nitrogen [Mass/Vol] 85 mg/dL High 8-23 [facility] Comment on above: Performed By: #### B MP, CBC #### [facility] [address] [place] [address] Block Sealer: Rodrick Jones MD Comprehensive Metabolic Pane l w/ Reflex to MGon 05-28-2022 Albumin [Mass/Vol] 2.8 g/dL Low 3.5 - 5.2 g/dL [facility] Albumin/Globulin [Mass ratio] 0.6 {ratio} Low 1.0 - 2.5 [facility] [employer] ALP [Catalytic activity/Vol] 107 U/L 40 - 129 U/L [facility] Comment on above: SPECIMEN SLIGHTLY HE MOLYZED, RESULTS MAY BE ADVERSELY AFFECTED. ALT [Catalytic activity/Vol] 23 U/L 5 - 41 U/L [facility] [employer] Comment on above: SPECIMEN SLIGHTLY HE MOLYZED, RESULTS MAY BE ADVERSELY AFFECTED. Anion gap [Moles/Vol] 19 mmol/L High 9 - 17 mmol/L [facility] AST [Catalytic activity/Vol] 44 U/L High NINF - 40 U/L [facility] [employer] Comment on above: SPECIMEN SLIGHTLY HE MOLYZED, RESULTS MAY BE ADVERSELY AFFECTED. Bilirubin [Mass/Vol] 0.5 mg/dL 0.3 - 1 .2 mg/dL [facility] Calcium [Mass/Vol] 9.0 mg/dL 8.6 - 10. 4 mg/dL [facility] [employer] Chloride [Moles/Vol] 103 mmol/L 98 - 10 7 mmol/L [facility] CO2 [Moles/Vol] 9 mmol/L Critically low 20 - 31 mmol/L [facility] Creatinine [Mass/Vol] 7.05 mg/dL Critically high 0.7 0 - 1.20 mg/dL [facility] GFR/1.73 sq M.predicted MDRD (S/P/Bld) [Vol rate/Area] 8 mL/min/{1.73_m2} Low - PINF [facility] Comment on above: These results are [...] 153 mg/dL High 70 - 99 mg/dL [facility] [employer] Potassium [Moles/Vol] 5.6 mmol/L High 3.7 - 5.3 mmol/L [facility] Comment on above: SPECIMEN SLIGHTLY HE MOLYZED, RESULTS MAY BE ADVERSELY AFFECTED. Protein [Mass/Vol] 7.2 g/dL 6.4 - 8.3 g/dL [facility] Sodium [Moles/Vol] 131 mmol/L Low 135 - 144 mmol/L [facility] Urea nitrogen [Mass/Vol] 85 mg/dL High 8 - 23 mg/dL [facility] Creatinine, urine, randomon 05-28-2022 Creatinine, Ur 82.7 mg/dL 39.0 - 259.0 mg/dL [facility] Creatinine,Random Uron 05-28 Creatinine [Mass/Vol] 82.7 mg/dL Normal 39.0-259.0 [facility] Comment on above: Performed By: #### C RP, RENP, CBC, MG #### [facility] [address] [place] [id number] Block Sealer: Rodrick Jones MD FLUORO FOR SURGICAL PROCEDUR ESon 05-28-2022 FLUORO FOR SURGICAL PROCEDURES Radiology exam is complete. No Radiologist dictation. Please follow up with ordering provider. Final result Normal [facility] Radiology exam is complete. No Radiologist dictation. Please follow up with ordering provider. MHPN RIS CONSOLIDATED [employer] [place] + Lambdaon 2022 Free Lambda Lt Chains 4.85 mg/dL High 0.57-2.63 [facility] Comment on above: Performed By: #### B MP, CBC #### [id number] [address] [place] [address] Block Sealer: Rodrick Jones MD K (Potassium)on 05-28-2022 Potassium [Moles/Vol] 5.4 mmol/L High 3.7-5.3 [facility] Comment on above: Performed By: #### C RP, RENP, CBC, MG #### [id number] [address] [place] [address] Block Sealer: Rodrick Jones MD LACTATE/LACTIC ACIDon 2022 Lactate [Moles/Vol] 0.6 mmol/L Normal 0.4-1.9 [facility] Comment on above: Performed By: #### C MP, TSH #### [facility] Laboratory [address], [place] [address] Dr. Kalie Rodas Lactate [Moles/Vol] 0.6 mmol/L Normal 0.4-1.9 [facility] Comment on above: Performed By: #### C MP, TSH #### [facility] [address] [place], [place] [address] Dr. Kalie Rodas Magnesiumon 05-28-2022 Magnesium [Mass/Vol] 1.9 mg/dL Normal 1.6-2.6 [facility] Comment on above: Performed By: #### B MP, CBC #### [facility] [address] [place] [address] Block Sealer: Rodrick Jones MD Magnesium [Mass/Vol] 1.9 mg/dL 1.6 - 2 .6 mg/dL [facility] No Panel Informationon 05-28 Interpretation and review of laboratory results Abnormal [facility] Interpretation and review of laboratory results Abnormal [facility] Osmolality, Urineon 05-28-19 23 Osmolality - Urine 317 mOsm/kg Normal 80-1300 [facility] Comment on above: Performed By: #### C RP, RENP, CBC, MG #### [facility] [address] [place] [address] Block Sealer: Rodrick Jones MD Osmolality, urineon 05-28-19 23 Osmolality, Ur 317 [facility] POC Glucose Fingerstickon Glucose [Mass/Vol] 187 mg/dL High 75 - 110 mg/dL [facility] Interpretation and review of laboratory results Abnormal [facility] Glucose [Mass/Vol] 160 mg/dL High 75 - 110 mg/dL [facility] Interpretation and review of laboratory results Abnormal [facility] Glucose [Mass/Vol] 126 mg/dL High 75 - 110 mg/dL [facility] Interpretation and review of laboratory results Abnormal [facility] POINT OF CARE GLUCOSEon 05-12 Glucose [Mass/Vol] 118 mg/dL Critically high 74-106 T [facility] Comment on above: Performed By: #### C MP, TSH #### [facility] [address] [place] [address] Dr. Kalie Rodas PROF 14(COMP METB)on 023 Albumin [Mass/Vol] 2.6 g/dL Critically low 3.4-5.0 [facility] Comment on above: Performed By: #### C VDTBH #### [facility] [address] [place] [address] Dr. Kalie Rodas Albumin/Globulin [Mass ratio] 0.6 {ratio} Normal [facility] Comment on above: Performed By: #### C VDTBH #### [facility] [address] [place] [address] Dr. Kalie Rodas ALP [Catalytic activity/Vol] 106 U/L Normal 46-116 [facility] Comment on above: Performed By: #### C VDTBH #### [facility] [address] [place] [address] Dr. Kalie Rodas ALT [Catalytic activity/Vol] 29 U/L Normal 16-63 [facility] Comment on above: Performed By: #### C VDTBH #### [facility] [address] [place] [address] Dr. Kalie Rodas Anion gap [Moles/Vol] 21.6 mmol/L Normal [facility] Comment on above: Performed By: #### C VDTBH #### [facility] [address] [place] [address] Dr. Kalie Rodas AST [Catalytic activity/Vol] 45 U/L Critically high 15-37 [facility] Comment on above: Performed By: #### C VDTBH #### [facility] [address] [place] [address] [address] Kalie Rodas Bilirubin [Mass/Vol] 0.4 mg/dL Normal 0.2-1.0 [facility] Comment on above: Performed By: #### C VDTBH #### [facility] [address] [place] [address] Dr. Kalie Rodas Calcium [Mass/Vol] 8.5 mg/dL Normal 8.5-10.1 [facility] Comment on above: Performed By: #### C VDTBH #### [facility] [address] [place] [address] [address] Kalie Rodas Chloride [Moles/Vol] 101 mmol/L Normal 98-107 [facility] Comment on above: Performed By: #### C VDTBH #### [facility] [address] [place] [address] Dr. Kalie Rodas CO2 [Moles/Vol] 15.3 mmol/L Critically low 21.0-32.0 [facility] Comment on above: Performed By: #### C VDTBH #### [facility] [address] [place] [address] Dr. Kalie Rodas Creatinine [Mass/Vol] 8.78 mg/dL Critically high 0.70-1.30 [facility] Comment on above: Performed By: #### C VDTBH #### [facility] [address] [place] [address] Dr. Kalie Rodas EGFR-AF SAUDI ARABIAN 8 mL/min/1.73m2 Critically low >=60 [facility] Comment on above: Performed By: #### C VDTBH #### [facility] [address] [place] [address] Dr. Kalie Rodas EGFR-NON AF SAUDI ARABIAN 6 mL/min/1.73m2 Critically low >=60 [facility] Comment on above: Performed By: #### C VDTBH #### [facility] [address] [place] [address] Dr. Kalie Rodas Globulin (S) [Mass/Vol] 4.2 g/dL Normal [facility] Comment on above: Performed By: #### C VDTBH #### [facility] [address] [place] [address] [address] Kalie Rodas Glucose [Mass/Vol] 112 mg/dL Critically high 74-106 T [facility] Comment on above: Performed By: #### C VDTBH #### [facility] [address] [place] [address] [address] Kalie Rodas Potassium [Moles/Vol] 4.9 mmol/L Normal 3.5-5.1 [facility] Comment on above: Performed By: #### C VDTBH #### [facility] [address] [place] [address] [address] Kalie Rodas Protein [Mass/Vol] 6.8 g/dL Normal 6.4-8.2 [facility] Comment on above: Performed By: #### C VDTBH #### [facility] [address] [place] [address] Dr. Kalie Rodas Sodium [Moles/Vol] 133 mmol/L Critically low 136-145 [facility] Comment on above: Performed By: #### C VDTBH #### [facility] [address] [place] [address] [address] Kalie Rodas Urea nitrogen [Mass/Vol] 86.0 mg/dL Critically high 7.0-18.0 [facility] Comment on above: Performed By: #### C VDTBH #### [facility] [address] [place] [address] Dr. Kalie Rodas Urea nitrogen/Creatinine [Mass ratio] 9.8 mg/mg Normal [facility] Comment on above: Performed By: #### C VDTBH #### [facility] [address] [place] [address] Dr. Kalie Rodas Albumin [Mass/Vol] 2.7 g/dL Critically low 3.4-5.0 [facility] Comment on above: Performed By: #### C VDTBH #### [facility] [address] [place] [address] Dr. Kalie Rodas Albumin/Globulin [Mass ratio] 0.6 {ratio} Normal [facility] Comment on above: Performed By: #### C VDTBH #### [facility] [address] [place] [address] [address] Kalie Rodas ALP [Catalytic activity/Vol] 100 U/L Normal 46-116 [facility] Comment on above: Performed By: #### C VDTBH #### [facility] [address] [place] [address] [address] Kalie Rodas ALT [Catalytic activity/Vol] 30 U/L Normal 16-63 [facility] Comment on above: Performed By: #### C VDTBH #### [facility] [address] [place] [address] [address] Kalie Rodas Anion gap [Moles/Vol] 21.1 mmol/L Normal Th [facility] Comment on above: Performed By: #### C VDTBH #### [facility] [address] [place] [address] Dr. Kalie Rodas AST [Catalytic activity/Vol] 46 U/L Critically high 15-37 [facility] Comment on above: Performed By: #### C VDTBH #### [facility] [address] [place] [address] [address] Kalie Rodas Bilirubin [Mass/Vol] 0.4 mg/dL Normal 0.2-1.0 [facility] Comment on above: Performed By: #### C VDTBH #### [facility] [address] [place] [address] [address] Kalie Rodas Calcium [Mass/Vol] 8.5 mg/dL Normal 8.5-10.1 [facility] Comment on above: Performed By: #### C VDTBH #### [facility] [address] [place] [address] [address] Kalie Rodas Chloride [Moles/Vol] 103 mmol/L Normal 98-107 [facility] Comment on above: Performed By: #### C VDTBH #### [facility] [address] [place] [address] [address] Kalie Rodas CO2 [Moles/Vol] 15.6 mmol/L Critically low 21.0-32.0 [facility] Comment on above: Performed By: #### C VDTBH #### [facility] [address] [place] [address] [address] Kalie Rodas Creatinine [Mass/Vol] 8.52 mg/dL Critically high 0.70-1.30 [facility] Comment on above: Performed By: #### C VDTBH #### [facility] [address] [place] [address] [address] Kalie Rodas EGFR-AF SAUDI ARABIAN 8 mL/min/1.73m2 Critically low >=60 [facility] Comment on above: Performed By: #### C VDTBH #### [facility] [address] [place] [address] [address] Kalie Rodas EGFR-NON AF SAUDI ARABIAN 6 mL/min/1.73m2 Critically low >=60 [facility] Comment on above: Performed By: #### C VDTBH #### [facility] [address] [place] [address] [address] Kalie Rodas Globulin (S) [Mass/Vol] 4.5 g/dL Normal [facility] Comment on above: Performed By: #### C VDTBH #### [facility] [address] [place] [address] [address] Kalie Rodas Glucose [Mass/Vol] 98 mg/dL Normal 74-106 [facility] Comment on above: Performed By: #### C VDTBH #### [facility] [address] [place] [address] [address] Kalie Rodas Potassium [Moles/Vol] 4.7 mmol/L Normal 3.5-5.1 [facility] Comment on above: Performed By: #### C VDTBH #### [facility] [address] [place] [address] [address] Kalie Rodas Protein [Mass/Vol] 7.2 g/dL Normal 6.4-8.2 [facility] Comment on above: Performed By: #### C VDTBH #### [facility] [address] [place] [address] [address] Kalie Rodas Sodium [Moles/Vol] 135 mmol/L Critically low 136-145 [facility] Comment on above: Performed By: #### C VDTBH #### [facility] [address] [place] [address] [address] Kalie Rodas Urea nitrogen [Mass/Vol] 83.0 mg/dL Critically high 7.0-18.0 [facility] Comment on above: Performed By: #### C VDTBH #### [facility] [address] [place] [address] [address] Kalie Rodas Urea nitrogen/Creatinine [Mass ratio] 9.7 mg/mg Normal [facility] Comment on above: Performed By: #### C VDTBH #### [facility] [address] [place] [address] [address] Kalie Rodas PTon 05-28-2022 INR Coag (PPP) [Relative time] 1.0 {INR} Normal [facility] Comment on above: Result Comment: Therapeutic Range: Moderate Anticoagulant Intensity: INR = 2.0-3.0 High Anticoagulant Intensity: INR = 2.5-3.5 Performed By: #### B MP, CBC #### [id number] [address] [place] [address] Block Sealer: Rodrick Jones MD PT Coag (PPP) [Time] 11.1 s Normal 9.1-12.3 [facility] Comment on above: Performed By: #### B MP, CBC #### [id number] [address] [place] [address] [id number] Block Sealer: Rodrick Jones MD PTH, Intacton 05-28-2022 PTH, Intact 152.9 pg/mL High 14.0-72.0 [facility] Comment on above: Result Comment: SAMP LES FROM PATIENTS ROUTINELY RECEIVING HIGH DOSE BIOTIN THERAPY MAY SHOW FALSELY DEPRESSED RESULTS. ADDITIONAL INFORMATION MAY BE REQUIRED FOR DIAGNOSIS. Performed By: #### B MP, CBC #### [id number] [address] [place] [address] Block Sealer: Rodrick Jones MD Interpretation and review of laboratory results Abnormal [facility] Parathyrin.intact [Mass/Vol] 152.9 pg/mL High 14.0 - 72.0 pg/mL [facility] Comment on above: SAMPLES FROM PATIENT S ROUTINELY RECEIVING HIGH DOSE BIOTIN THERAPY MAY SHOW FALSELY DEPRESSED RESULTS. ADDITIONAL INFORMATION MAY BE REQUIRED FOR DIAGNOSIS. [facility] Potassiumon 05-28-2022 Interpretation and review of laboratory results Abnormal [facility] Potassium [Moles/Vol] 5.4 mmol/L High 3.7 - 5.3 mmol/L [facility] Protein, urine, randomon Protein (U) [Mass/Vol] 67 mg/dL [facility] Comment on above: No normal range esta blished. Protein,Tot,[place] Uron 2022 Tot Prot. Conc. 67 mg/dL Normal [facility] Comment on above: Result Comment: No n ormal range established. Performed By: #### C RP, RENP, CBC, MG #### [id number] [address] [place] [address] Block Sealer: Rodrick Jones MD Protime-INRon 05-28-2022 INR Coag (PPP) [Relative time] 1.0 {INR} [facility] Comment on above: Therapeutic Range: Moderate Anticoagulant Intensity: INR = 2.0-3.0 High Anticoagulant Intensity: INR = 2.5-3.5 PT Coag (PPP) [Time] 11.1 s [facility] Sodium, Random Uron 05-28-19 Sodium (U) [Moles/Vol] 61 mmol/L Normal [facility] Comment on above: Result Comment: No n ormal range established. Performed By: #### C RP, RENP, CBC, MG #### [id number] [address] [place] [address] Block Sealer: Rodrick Jones MD Sodium, urine, randomon 05-12 Sodium (U) [Moles/Vol] 61 mmol/L [facility] Comment on above: No normal range esta blished. US RETROPERITONEAL COMPLETEo n 05-28-2022 No stone, mass or hydronephrosis within the kidneys. Kidneys have normal size. [facility]ATION: RETROPERITONEAL ULTRASOUND OF THE KIDNEYS [...] evaluated due to presence of Carballo catheter [facility] Franklin Barker MD - 05/28/2022 [...] within the kidneys. Kidneys have normal size. [employer] Phone: Radiology Study observation (narrative) [facility] [email or web address] Phone: US RETROPERITONEAL COMPLETEO rdered By: Franklin Barker on 05-28-2022 [facility] [email or web address] Phone: Uric Acidon 05-28-2022 Urate [Mass/Vol] 7.8 mg/dL High 3.4-7.0 [facility] Comment on above: Performed By: #### I FX, URI, C4, PE, FKLLC, C3, PTHNCA #### [facility] [address] [place] [address] Block Sealer: Rodrick Jones MD Urate [Mass/Vol] 7.8 mg/dL High 3.4 - 7.0 mg/dL [facility] Urinalysis w/ Microon 2022 Bilirubin, SemiQt,Ur Negative Normal NEG [facility] Comment on above: Performed By: #### C RP, RENP, CBC, MG #### [address] [address] Block Sealer: Rodrick Jones MD Blood, Urine LARGE Abnormal NEG [facility] Comment on above: Performed By: #### C RP, RENP, CBC, MG #### [address] [address] Block Sealer: Rodrick Jones MD Casts 2 TO 5 HYALINE Normal 0-8 [facility] Comment on above: Result Comment: Refe rence range defined for non-centrifuged specimen. Performed By: #### C RP, RENP, CBC, MG #### [address] [address] Block Sealer: Rodrick Jones MD Clarity (U) Clear Normal CLEAR [facility] Comment on above: Performed By: #### C RP, RENP, CBC, MG #### [facility] [address] [place] [address] Block Sealer: Rodrick Jones MD Color (U) Yellow Normal YEL [facility] Comment on above: Performed By: #### C RP, RENP, CBC, MG #### [address] [address] Block Sealer: Rodrick Jones MD Epithelial cells LM Ql (Urine sed) None Normal 0-5 [facility] Comment on above: Performed By: #### C RP, RENP, CBC, MG #### [address] [address] Block Sealer: Rodrick Jones MD Glucose Ql (U) Negative Normal NEG [facility] Comment on above: Performed By: #### C RP, RENP, CBC, MG #### [facility] [address] [place] [address] Block Sealer: Rodrick Jones MD Ketones Ql (U) Negative Normal NEG [facility] Comment on above: Performed By: #### C RP, RENP, CBC, MG #### [address] [address] Block Sealer: Rodrick Jones MD Leukocyte esterase Test strip Ql (U) TRACE Abnormal NEG [facility] Comment on above: Performed By: #### C RP, RENP, CBC, MG #### [facility] [address] [place] [address] Block Sealer: Rodrick Jones MD Nitrite,Ur Negative Normal NEG [facility] Comment on above: Performed By: #### C RP, RENP, CBC, MG #### [facility] [address] [place] [address] Block Sealer: Rodrick Jones MD PH,Ur 5.5 Normal 5.0-8.0 [facility] Comment on above: Performed By: #### C RP, RENP, CBC, MG #### [facility] [address] [place] [address] Block Sealer: Rodrick Jones MD Protein Ql (U) 2+ Abnormal NEG [facility] Comment on above: Performed By: #### C RP, RENP, CBC, MG #### [facility] [address] [place] [address] Block Sealer: Rodrick Jones MD Spec. [place],Ur 1.011 Normal 1.005-1.030 [facility] Comment on above: Performed By: #### C RP, RENP, CBC, MG #### [facility] [address] [place] [address] [id number] Block Sealer: Rodrick Jones MD Urine RBC's TOO NUMEROUS TO COUNT Normal 0-4 [facility] Comment on above: Result Comment: Refe rence range defined for non-centrifuged specimen. Performed By: #### C RP, RENP, CBC, MG #### [facility] [address] [place] [address] Block Sealer: Rodrick Jones MD Urine WBC's 10 TO 20 Normal 0-5 [facility] Comment on above: Performed By: #### C RP, RENP, CBC, MG #### [facility] [address] [place] [address] Block Sealer: Rodrick Jones MD Urobilinogen,Ur Normal Normal NORM [facility] Comment on above: Performed By: #### C RP, RENP, CBC, MG #### [facility] [address] [place] [address] Block Sealer: Rodrick Jones MD Urinalysis with Microscopico n 05-28-2022 Bilirubin Urine Negative NEGATIVE [facility] [employer] Casts UA 2 TO 5 HYALINE Reference range defined for non-centrifuged specimen. [facility] [employer] Color, UA Yellow Yellow [facility] [employer] Epithelial Cells UA None [facility] [employer] Glucose Auto test strip (U) [Mass/Vol] Negative NEGATIVE [facility] [employer] Interpretation and review of laboratory results Abnormal [facility] [employer] Ketones (U) [Mass/Vol] Negative NEGATIVE [facility] [employer] Leukocyte esterase Auto test strip Ql (U) TRACE Abnormal NEGATIVE [facility] [employer] Nitrite Auto test strip Ql (U) Negative NEGATIVE [facility] [employer] Protein (U) [Mass/Vol] 5.5 mg/dL 5.0 - 8.0 [facility] [employer] Protein (U) [Mass/Vol] 2+ Abnormal NEGATIVE [facility] [employer] RBC clumps Auto (Urine sed) [#/Area] TOO NUMEROUS TO COUNT [facility] Comment on above: Reference range defi jay jay for non-centrifuged specimen. Specific [place], UA 1.011 1.005 - 1.030 [facility] Turbidity UA Clear Clear [facility] Urine Hgb LARGE Abnormal NEGATIVE [facility] Urobilinogen, Urine Normal Normal [facility] WBC, UA 10 TO 20 [facility] XR CHEST 1 Von 05-28-2022 XR CHEST [...] JOSÉ SYLVESTER Date: 2022-05-28 12:48 Normal [facility] BLOOD CULTURE ID PANELon A. baumannii Not detected Normal NOT DETECTED [facility] Comment on above: Performed By: #### C VDTBH #### [facility] [address] [place] [address] Dr. Kalie Rodas Bacteriodes fragilis Not detected Normal NOT DETECTED [facility] Comment on above: Performed By: #### C VDTBH #### [facility] [address] [place] [address] Dr. Kalie KITCHEN CONTROLS PASSED Normal [facility] Comment on above: Performed By: #### C VDTBH #### [facility] [address] [place] [address] [address] Kalie CAMPBELLDBTHD BLOOD CULTURE BOTTLE INFORMATION Normal [facility] Comment on above: Performed By: #### C VDTBH #### [facility] [address] [place] [address] Dr. Kalie Rodas BCIDHD1 ANTIMICROBIAL RESISTANCE GENES [facility] Comment on above: Performed By: #### C VDTBH #### [facility] [address] [place] [address] Dr. Kalie Rodas BCIDHD2 SEE BELOW Normal [facility] Comment on above: Result Comment: Note : Antimicrobial resitance can occur via multiple mechanisms. A Not Detected result for the [employer] antomicrobial resistance gene assays does not indicate antimicrobial susceptibility. Subculturing is required for species identification and susceptibility testing of isolates. Performed By: #### C VDTBH #### [facility] [address] [place] [address] Dr. Kalie Rodas BCIDHD3 Positive Normal [facility] Comment on above: Performed By: #### C VDTBH #### [facility] [address] [place] [address] Dr. Kalie Rodas BCIDHD4 Negative Normal [facility] Comment on above: Performed By: #### C VDTBH #### [facility] [address] [place] [address] Dr. Kalie Rodas BCIDHD5 YEAST Normal [facility] Comment on above: Performed By: #### C VDTBH #### [facility] [address] [place] [address] Dr. Kalie Rodas Bottle Set: Set 1 Normal [facility] Comment on above: Performed By: #### C VDTBH #### [facility] [address] [place] [address] Dr. Kalie Rodas Bottle: Aerobic Normal [facility] Comment on above: Performed By: #### C VDTBH #### [facility] [address] [place] [address] Dr. Kalie Rodas C. neoformans/gattii Not detected Normal NOT DETECTED [facility] Comment on above: Performed By: #### C VDTBH #### [facility] [address] [place] [address] Dr. Kalie Rodas Nida albicans Not detected Normal NOT DETECTED [facility] Comment on above: Performed By: #### C VDTBH #### [facility] [address] [place] [address] Dr. Kalie Rodas Nida auris Not detected Normal NOT DETECTED [facility] Comment on above: Performed By: #### C VDTBH #### [facility] [address] [place] [address] Dr. Kalie Rodas Nida glabrata Not detected Normal NOT DETECTED [facility] Comment on above: Performed By: #### C VDTBH #### [facility] [address] [place] [address] Dr. Kalie Rodas Nida Krusei Not detected Normal NOT DETECTED [facility] Comment on above: Performed By: #### C VDTBH #### [facility] [address] [place] [address] Dr. Kalie Rodas Nida Parapsilosis Not detected Normal NOT DETECTED [facility] Comment on above: Performed By: #### C VDTBH #### [facility] [address] [place] [address] Dr. Kalie Rodas Nida Tropicalis Not detected Normal NOT DETECTED [facility] Comment on above: Performed By: #### C VDTBH #### [facility] [address] [place] [address] Dr. Kalie Rodas CTX-M Resistant Gene Not Applicable Normal NOT DETECTE D [facility] Comment on above: Performed By: #### C VDTBH #### [facility] [address] [place] [address] Dr. Kalie Rodas E. Cloacae complex Not detected Normal NOT DETECTED [facility] Comment on above: Performed By: #### C VDTBH #### [facility] [address] [place] [address] Dr. Kalie Rodas E. faecalis Not detected Normal NOT DETECTED [facility] Comment on above: Performed By: #### C VDTBH #### [facility] [address] [place] [address] Dr. Kalie Rodas E. faecium Not detected Normal NOT DETECTED [facility] Comment on above: Performed By: #### C VDTBH #### [facility] [address] [place] [address] Dr. Kalie Rodas Enterobacteriaceae Not detected Normal NOT DETECTED [facility] Comment on above: Performed By: #### C VDTBH #### [facility] [address] [place] [address] Dr. Kalie Rodas Escherichia coli Not detected Normal NOT DETECTED [facility] Comment on above: Performed By: #### C VDTBH #### [facility] [address] [place] [address] Dr. Kalie Rodas H. influenzae Not detected Normal NOT DETECTED [facility] Comment on above: Performed By: #### C VDTBH #### [facility] [address] [place] [address] Dr. Kalie Rodas IMP Resistant Gene Not Applicable Normal NOT DETECTED [facility] Comment on above: Performed By: #### C VDTBH #### [facility] [address] [place] [address] Dr. Kalie Rodas K. oxytoca Not detected Normal NOT DETECTED [facility] Comment on above: Performed By: #### C VDTBH #### [facility] [address] [place] [address] Dr. Kalie Rodas K. pneumoniae Not detected Normal NOT DETECTED [facility] Comment on above: Performed By: #### C VDTBH #### [facility] [address] [place] [address] Dr. Kalie Rodas Klebsiella aerogenes Not detected Normal NOT DETECTED [facility] Comment on above: Performed By: #### C VDTBH #### [facility] [address] [place] [address] Dr. Kalie Rodas KPC Resistant Gene Not Applicable Normal NOT DETECTED [facility] Comment on above: Performed By: #### C VDTBH #### [facility] [address] [place] [address] Dr. Kalie Rodas List. monocytogenes Not detected Normal NOT DETECTED [facility] Comment on above: Performed By: #### C VDTBH #### [facility] [address] [place] [address] Dr. Kalie Rodas Mcr-1 Resistant Gene Not Applicable Normal NOT DETECTE D [facility] Comment on above: Performed By: #### C VDTBH #### [facility] [address] [place] [address] Dr. Kalie Rodas mecA/C Detected Abnormal NOT DETECTED [facility] Comment on above: Performed By: #### C VDTBH #### [facility] [address] [place] [address] Dr. Kalie Rodas mecA/C MREJ Not Applicable Normal NOT DETECTED [facility] Comment on above: Performed By: #### C VDTBH #### [facility] [address] [place] [address] Dr. Kalie Rodas N. meningitidis Not detected Normal NOT DETECTED [facility] Comment on above: Performed By: #### C VDTBH #### [facility] [address] [place] [address] Dr. Kalie Rodas NDM Resistant Gene Not Applicable Normal NOT DETECTED [facility] Comment on above: Performed By: #### C VDTBH #### [facility] [address] [place] [address] Dr. Kalie Rodas Oxa-48-like Not Applicable Normal NOT DETECTED [facility] Comment on above: Performed By: #### C VDTBH #### [facility] [address] [place] [address] Dr. Kalie Rodas Proteus Not detected Normal NOT DETECTED [facility] Comment on above: Performed By: #### C VDTBH #### [facility] [address] [place] [address] Dr. Kalie Rodas Pseud. aeruginosa Not detected Normal NOT DETECTED [facility] Comment on above: Performed By: #### C VDTBH #### [facility] [address] [place] [address] Dr. Kalie Rodas S. maltophilia Not detected Normal NOT DETECTED [facility] Comment on above: Performed By: #### C VDTBH #### [facility] [address] [place] [address] Dr. Kalie Rodas Salmonella Not detected Normal NOT DETECTED [facility] Comment on above: Performed By: #### C VDTBH #### [facility] [address] [place] [address] Dr. Kalie Rodas Seratia marcescens Not detected Normal NOT DETECTED [facility] Comment on above: Performed By: #### C VDTBH #### [facility] [address] [place] [address] Dr. Kalie Rodas Site: rt. hand Normal [facility] Comment on above: Performed By: #### C VDTBH #### [facility] [address] [place] [address] Dr. Kalie Rodas Staph. aureus Not detected Normal NOT DETECTED [facility] Comment on above: Performed By: #### C VDTBH #### [facility] [address] [place] [address] Dr. Kalie Rodas Stapsharla. epidermidis Detected Critically abnormal NOT DETECTED [facility] Comment on above: Performed By: #### C VDTBH #### [facility] [address] [place] [address] Dr. Kalie Rodas Stapsharla. lugdunensis Not detected Normal NOT DETECTED [facility] Comment on above: Performed By: #### C VDTBH #### [facility] [address] [place] [address] Dr. Kalie Rodas Staphylococcus Detected Critically abnormal NOT DETECTED [facility] Comment on above: Performed By: #### C VDTBH #### [facility] [address] [place] [address] Dr. Kalie Rodas Strep. agalactiae Not detected Normal NOT DETECTED [facility] Comment on above: Performed By: #### C VDTBH #### [facility] [address] [place] [address] Dr. Kalie Rodas Strep. pneumoniae Not detected Normal NOT DETECTED [facility] Comment on above: Performed By: #### C VDTBH #### [facility] [address] [place] [address] Dr. Kalie Rodas Strep. pyogenes Not detected Normal NOT DETECTED [facility] Comment on above: Performed By: #### C VDTBH #### [facility] [address] [place] [address] Dr. Kalie Rodas Streptococcus Not detected Normal NOT DETECTED [facility] Comment on above: Performed By: #### C VDTBH #### [facility] [address] [place] [address] Dr. Kalie Rodas Nael/B Resist. Gene Not detected Normal NOT DETECTED [facility] Comment on above: Performed By: #### C VDTBH #### [facility] [address] [place] [address] Dr. Kalie Rodas VIM Resistant Gene Not Applicable Normal NOT DETECTED [facility] Comment on above: Performed By: #### C VDTBH #### [facility] [address] [place] [address] Dr. Kalie Rodas CBC AUTO DIFFon 05-27-2022 BASO # 0.0 103/ul Normal 0.0-0.1 [facility] Comment on above: Performed By: #### C VDTBH #### [facility] [address] [place] [address] Dr. Kalie Rodas Basophils/100 WBC (Bld) 0.4 % Normal 0.2-2.0 [facility] Comment on above: Performed By: #### C VDTBH #### [facility] [address] [place] [address] Dr. Kalie Rodas EO # 0.0 103/ul Normal 0.0-0.7 [facility] Comment on above: Performed By: #### C VDTBH #### [facility] [address] [place] [address] Dr. Kalie Rodas Eosinophils/100 WBC (Bld) 0.0 % Critically low 0.9-7.0 [facility] Comment on above: Performed By: #### C VDTBH #### [facility] [address] [place] [address] Dr. Kalie Rodas Erythrocyte distribution width (RBC) [Ratio] 13.9 % Normal 11.0-15.0 [facility] Comment on above: Performed By: #### C VDTBH #### [facility] [address] [place] [address] Dr. Kalie Rodas Hematocrit (Bld) [Volume fraction] 37.9 % Critically low 42.0-54.0 [facility] Comment on above: Performed By: #### C VDTBH #### [facility] [address] [address] [address] Kalie Rodas Hemoglobin (Bld) [Mass/Vol] 12.8 g/dL Critically low 14.0-18.0 [facility] Comment on above: Performed By: #### C VDTBH #### [facility] [address] [address] [address] Kalie Rodas IG # 0.05 10e3/ul Critically high 0.00-0.03 [facility] Comment on above: Performed By: #### C VDTBH #### [facility] [address] [address] [address] Kalie Rodas IG % 0.5 % Normal 0.0-0.5 [facility] Comment on above: Performed By: #### C VDTBH #### [facility] [address] [place] [address] Dr. Kalie Rodas LYMPH # 1.1 103/ul Critically low 1.2-3.8 [facility] Comment on above: Performed By: #### C VDTBH #### [facility] [address] [place] [address] Dr. Kalie Rodas Lymphocytes/100 WBC (Bld) 9.6 % Critically low 20.5-60.0 [facility] Comment on above: Performed By: #### C VDTBH #### [facility] [address] [place] [address] Dr. Kalie Rodas MANUAL DIFF REQ NO Normal [facility] Comment on above: Performed By: #### C VDTBH #### [facility] [address] [place] [address] Dr. Kalie Rodas MCH (RBC) [Entitic mass] 30.3 pg Normal 25.9-34.0 [facility] Comment on above: Performed By: #### C VDTBH #### [facility] [address] [place] [address] Dr. Kalie Rodas MCHC (RBC) [Mass/Vol] 33.8 g/dL Normal 29.9-35.2 [facility] Comment on above: Performed By: #### C VDTBH #### [facility] [address] [place] [address] Dr. Kalei Rodas MCV (RBC) [Entitic vol] 89.8 fL Normal 80.0-94.0 [facility] Comment on above: Performed By: #### C VDTBH #### [facility] [address] [place] [address] Dr. Kalie Rodas MONO # 1.1 103/ul Critically high 0.3-0.8 [facility] Comment on above: Performed By: #### C VDTBH #### [facility] [address] [place] [address] Dr. Kalie Rodas Monocytes/100 WBC (Bld) 10.1 % Normal 1.7-12.0 [facility] Comment on above: Performed By: #### C VDTBH #### [facility] [address] [place] [address] Dr. Kalie Rodas NEUT # 8.8 103/ul Critically high 1.4-6.5 [facility] Comment on above: Performed By: #### C VDTBH #### [facility] [address] [place] [address] Dr. Kalie Rodas Neutrophils/100 WBC (Bld) 79.4 % Critically high 43.0-75.0 [facility] Comment on above: Performed By: #### C VDTBH #### [facility] [address] [place] [address] Dr. Kalie Rodas Platelet mean volume (Bld) [Entitic vol] 10.0 fL Normal 9.5-13.5 [facility] Comment on above: Performed By: #### C VDTBH #### [facility] [address] [place] [address] Dr. Kalie Rodas PLT 187 103/ul Normal 150-450 [facility] Comment on above: Performed By: #### C VDTBH #### [facility] [address] [place] [address] Dr. Kalie Rodas RBC 4.22 106/ul Critically low 4.70-6.10 [facility] Comment on above: Performed By: #### C VDTBH #### [facility] [address] [place] [address] Dr. Kalie Rodas WBC 11.0 103/ul Normal 4.0-11.0 [facility] Comment on above: Performed By: #### C VDTBH #### [facility] [address] [place] [address] Dr. Kalie Rodas CBC W MANUAL DIFFon 05-27-19 23 ATYPICAL LYMPH # Normal [facility] Comment on above: Performed By: #### C VDTBH #### [facility] [address] [place] [address] Dr. Kalie Rodas ATYPICAL LYMPH % Normal [facility] Comment on above: Performed By: #### C VDTBH #### [facility] [address] [place] [address] Dr. Kalie Rodas BAND # Normal 0.0-0.3 [facility] Comment on above: Performed By: #### C VDTBH #### [facility] [address] [place] [address] Dr. Kalie Rodas BAND % Normal 0-5 [facility] Comment on above: Performed By: #### C VDTBH #### [facility] [address] [place] [address] Dr. Kalie Rodas BASOM # 0.00 103/ul Normal 0.00-0.10 [facility] Comment on above: Performed By: #### C VDTBH #### [facility] [address] [place] [address] Dr. Kalie Rodas BASOM % 0.0 % Critically low 0.2-2.0 [facility] Comment on above: Performed By: #### C VDTBH #### [facility] [address] [place] [address] Dr. Kalie Rodas BLAST # Normal [facility] Comment on above: Performed By: #### C VDTBH #### [facility] [address] [place] [address] Dr. Kalie Rodas BLAST % Normal [facility] Comment on above: Performed By: #### C VDTBH #### [facility] [address] [address] [address] Kalie Rodas CORRECTED WBC Normal 4.0-11.0 [facility] Comment on above: Performed By: #### C VDTBH #### [facility] [address] [address] [address] Kalie Rodas EOS # 0.00 103/ul Normal 0.00-0.70 [facility] Comment on above: Performed By: #### C VDTBH #### [facility] [address] [address] [address] Kalie Rodas EOS% 0.0 % Critically low 0.9-7.0 [facility] Comment on above: Performed By: #### C VDTBH #### [facility] [address] [address] [address] Kalie Rodas HCT 40.1 % Critically low 42.0-54.0 [facility] Comment on above: Performed By: #### C VDTBH #### [facility] [address] [address] [address] Kalie Rodas HGB 13.9 g/dl Critically low 14.0-18.0 [facility] Comment on above: Performed By: #### C VDTBH #### [facility] [address] [address] [address] Kalie Rodas LYMPHM # 0.75 103/ul Critically low 1.20-3.80 [facility] Comment on above: Performed By: #### C VDTBH #### [facility] [address] [address] [address] Kalie Rodas LYMPHM% 5.0 % Critically low 20.5-60.0 [facility] Comment on above: Performed By: #### C VDTBH #### [facility] [address] [address] [address] Kalie Rodas MCH 30.8 pg Normal 25.9-34.0 [facility] Comment on above: Performed By: #### C VDTBH #### [facility] [address] [place] [address] Dr. Kalie Rodas MCHC 34.7 g/dl Normal 29.9-35.2 [facility] Comment on above: Performed By: #### C VDTBH #### [facility] [address] [place] [address] Dr. Kalie Rodas MCV 88.9 fL Normal 80.0-94.0 [facility] Comment on above: Performed By: #### C VDTBH #### [facility] [address] [place] [address] Dr. Kalie Rodas METAMYELOCYTE # Normal [facility] Comment on above: Performed By: #### C VDTBH #### [facility] [address] [place] [address] Dr. Kalie Rodas METAMYELOCYTE % Normal [facility] Comment on above: Performed By: #### C VDTBH #### [facility] [address] [place] [address] Dr. Kalie Rodas MONOM# 1.80 103/ul Critically high 0.30-0.80 [facility] Comment on above: Performed By: #### C VDTBH #### [facility] [address] [place] [address] Dr. Kalie Rodas MONOM% 12.0 % Normal 1.7-12.0 [facility] Comment on above: Performed By: #### C VDTBH #### [facility] [address] [place] [address] Dr. Kalie Rodas MPV 9.6 fL Normal 9.5-13.5 [facility] Comment on above: Performed By: #### C VDTBH #### [facility] [address] [place] [address] Dr. Kalie Rodas MYELOCYTE # Normal [facility] Comment on above: Performed By: #### C VDTBH #### [facility] [address] [place] [address] Dr. Kalie Rodas MYELOCYTE % Normal [facility] Comment on above: Performed By: #### C VDTBH #### [facility] [address] [address] [address] Kalie Rodas NRBC Normal [facility] Comment on above: Performed By: #### C VDTBH #### [facility] [address] [address] [address] Kalie Rodas PLT 236 103/ul Normal 150-450 [facility] Comment on above: Performed By: #### C VDTBH #### [facility] [address] [address] [address] Kalie Rodas RBC 4.51 106/ul Critically low 4.70-6.10 [facility] Comment on above: Performed By: #### C VDTBH #### [facility] [address] [place] [address] Dr. Kalie Rodas RDW 13.7 % Normal 11.0-15.0 [facility] Comment on above: Performed By: #### C VDTBH #### [facility] [address] [address] [address] Kalie Rodas SEG # 12.45 103/ul Critically high 1.40-6.50 [facility] Comment on above: Performed By: #### C VDTBH #### [facility] [address] [place] [address] Dr. Kalie Rodas SEG % 83.0 % Critically high 43.0-75.0 [facility] Comment on above: Performed By: #### C VDTBH #### [facility] [address] [address] [address] Kalie Rodas WBC 15.0 103/ul Critically high 4.0-11.0 [facility] Comment on above: Performed By: #### C VDTBH #### [facility] [address] [place] [address] ABD/PELVIS WO CONon [...] KASSIE TO Date: 2022-05-27 13:01 Normal [facility] CULTURE BLOODon 05-27-2022 Microscopic examination of blood, culture Culture Observations: Aerobic & Anaerobic bottles positive; BCID- Staphylococcus Epidermidis Culture Observations: Please refer to accession #[id number] for susceptibilities. Isolate 1 Staphylococcus epidermidis Growth of Isolate 2 Staphylococcus hominis Growth of Normal [facility] Comment on above: Performed By: #### C BC #### [facility] [address] [place] [address] Dr. Kalie Rodas [facility] SARS-CoV-2 (COVID-19) RNA BENTLEY+probe Ql (Unsp spec) Not detected Normal NOT DETECTED [facility] Comment on above: Result Comment: When [...] for this test is supported by the [place] of Health and Human Service's declaration that [...] Performed By: #### C MP, TSH #### [facility] [address] [place] [address] Dr. Kalie Rodas ER URINE PROFILEon 3 Bilirubin Ql (U) Negative Normal NEGATIVE [facility] Comment on above: Performed By: #### M ALBCRL #### [facility] [address] [place] [address] Dr. Kalie Rodas Clarity (U) CLEAR Normal CLEAR [facility] Comment on above: Performed By: #### M ALBCRL #### [facility] [address] [place] [address] Dr. Kalie Rodas Color (U) LT. YELLOW Normal YELLOW [facility] Comment on above: Performed By: #### M ALBCRL #### [facility] [address] [place] [address] Dr. Kalie Rodas ERUAHD A micrscopic examination will be performed if indicated. Normal [facility] Comment on above: Performed By: #### M ALBCRL #### [facility] [address] [place] [address] Dr. Kalie Rodas Glucose Ql (U) Negative Normal NEGATIVE [facility] Comment on above: Performed By: #### M ALBCRL #### [facility] [address] [place] [address] Dr. Kalie Rodas Hemoglobin Ql (U) LARGE Abnormal NEGATIVE [facility] Comment on above: Performed By: #### M ALBCRL #### [facility] [address] [place] [address] Dr. Kalie Rodas Ketones Ql (U) Negative Normal NEGATIVE [facility] Comment on above: Performed By: #### M ALBCRL #### [facility] [address] [place] [address] Dr. Kalie Rodas LEUKOCYTES MODERATE Abnormal NEGATIVE [facility] Comment on above: Performed By: #### M ALBCRL #### [facility] [address] [place] [address] Dr. Kalie Rodas Nitrite Ql (U) Negative Normal NEGATIVE [facility] Comment on above: Performed By: #### M ALBCRL #### [facility] [address] [place] [address] Dr. Kalie Rodas pH (U) 6.0 [pH] Normal 5-9 [facility] Comment on above: Performed By: #### M ALBCRL #### [facility] [address] [place] [address] Dr. Kalie Rodas Protein (U) [Mass/Vol] 100 mg/dL Abnormal NEGAT HARISH/ TRACE [facility] Comment on above: Performed By: #### M ALBCRL #### [facility] [address] [place] [address] Dr. Kalie Rodas SPEC GRAVITY 1.015 Normal 1.005-<=1.025 [facility] Comment on above: Performed By: #### M ALBCRL #### [facility] [address] [place] [address] Dr. Kalie Rodas UR MICRO IND INDICATED Normal [facility] Comment on above: Performed By: #### M ALBCRL #### [facility] [address] [place] [address] Dr. Kalie Rodas Urobilinogen Qn (U) 0.2 {Naresh'U}/dL Normal 0.2 - 1. 0 [facility] Comment on above: Performed By: #### M ALBCRL #### [facility] [address] [address] [address] Kalie Rodas POINT OF CARE GLUCOSEon 05-12 Glucose [Mass/Vol] 109 mg/dL Critically high 74-106 [facility] Comment on above: Performed By: #### M ALBCRL #### [facility] [address] [place] [address] Dr. Kalie Rodas Glucose [Mass/Vol] 65 mg/dL Critically low 74-106 [facility] Comment on above: Performed By: #### P OCGLUC #### [facility] [address] [place] [address] Dr. Kalie Rodas Performed By: #### C VDTBH #### [facility] [address] [place] [address] Dr. Kalie Rodas Glucose [Mass/Vol] 117 mg/dL Critically high 74-106 [facility] Comment on above: Performed By: #### M ALBCRL #### [facility] [address] [place] [address] Dr. Kalie Rodas Glucose [Mass/Vol] 62 mg/dL Critically low 74-106 [facility] Comment on above: Performed By: #### C BC #### [facility] [address] [place] [address] Dr. Kalie Rodas PROF 14(COMP METB)on 023 Albumin [Mass/Vol] 3.1 g/dL Critically low 3.4-5.0 [facility] Comment on above: Performed By: #### C VDTBH #### [facility] [address] [place] [address] Dr. Kalie Rodas Albumin/Globulin [Mass ratio] 0.6 {ratio} Normal [facility] Comment on above: Performed By: #### C VDTBH #### [facility] [address] [place] [address] Dr. Kalie Rodas ALP [Catalytic activity/Vol] 112 U/L Normal 46-116 [facility] Comment on above: Performed By: #### C VDTBH #### [facility] Laboratory [address] [address] [address] Kalie Rodas ALT [Catalytic activity/Vol] 28 U/L Normal 16-63 [facility] Comment on above: Performed By: #### C VDTBH #### [facility] [address] [place] [address] Dr. Kalie Rodas Anion gap [Moles/Vol] 23.2 mmol/L Normal Th [facility] Comment on above: Performed By: #### C VDTBH #### [facility] [address] [place] [address] Dr. Kalie Rodas AST [Catalytic activity/Vol] 37 U/L Normal 15-37 [facility] Comment on above: Performed By: #### C VDTBH #### [facility] [address] [place] [address] Dr. Kalie Rodas Bilirubin [Mass/Vol] 0.4 mg/dL Normal 0.2-1.0 [facility] Comment on above: Performed By: #### C VDTBH #### [facility] [address] [place] [address] Dr. Kalie Rodas Calcium [Mass/Vol] 9.2 mg/dL Normal 8.5-10.1 [facility] Comment on above: Performed By: #### C VDTBH #### [facility] [address] [place] [address] Dr. Kalie Rodas Chloride [Moles/Vol] 100 mmol/L Normal 98-107 [facility] Comment on above: Performed By: #### C VDTBH #### [facility] [address] [place] [address] Dr. Kalie Rodas CO2 [Moles/Vol] 16.1 mmol/L Critically low 21.0-32.0 [facility] Comment on above: Performed By: #### C VDTBH #### [facility] [address] [place] [address] Dr. Kalie Rodas Creatinine [Mass/Vol] 8.75 mg/dL Critically high 0.70-1.30 [facility] Comment on above: Performed By: #### C VDTBH #### [facility] [address] [address] [address] Kalie Rodas EGFR-NON AF SAUDI ARABIAN 6 mL/min/1.73m2 Critically low >=60 [facility] Comment on above: Performed By: #### C VDTBH #### [facility] [address] [address] [address] Kalie Rodas Globulin (S) [Mass/Vol] 5.1 g/dL Normal [facility] Comment on above: Performed By: #### C VDTBH #### [facility] [address] [place] [address] Dr. Kalie Rodas Potassium [Moles/Vol] 4.3 mmol/L Normal 3.5-5.1 [facility] Comment on above: Performed By: #### C VDTBH #### [facility] [address] [place] [address] Dr. Kalie Rodas Protein [Mass/Vol] 8.2 g/dL Normal 6.4-8.2 [facility] Comment on above: Performed By: #### C VDTBH #### [facility] [address] [place] [address] Dr. Kalie Rodas Sodium [Moles/Vol] 135 mmol/L Critically low 136-145 [facility] Comment on above: Performed By: #### C VDTBH #### [facility] [address] [place] [address] Dr. Kalie Rodas Urea nitrogen [Mass/Vol] 86.0 mg/dL Critically high 7.0-18.0 [facility] Comment on above: Performed By: #### C VDTBH #### [facility] [address] [place] [address] Dr. Kalie Rodas Urea nitrogen/Creatinine [Mass ratio] 9.8 mg/mg Normal [facility] Comment on above: Performed By: #### C VDTBH #### [facility] [address] [place] [address] Dr. Kalie Rodas PROF CHEM 8 (BAS METB)on Anion gap [Moles/Vol] 19.3 mmol/L Normal [facility] Comment on above: Performed By: #### M ALBCRL #### [facility] [address] [address] [address] Kalie Rodas Calcium [Mass/Vol] 8.6 mg/dL Normal 8.5-10.1 [facility] Comment on above: Performed By: #### M ALBCRL #### [facility] [address] [address] [address] Kalie Rodas Chloride [Moles/Vol] 101 mmol/L Normal 98-107 [facility] Comment on above: Performed By: #### M ALBCRL #### [facility] [address] [place] [address] Dr. Kalie Rodas CO2 [Moles/Vol] 17.1 mmol/L Critically low 21.0-32.0 [facility] Comment on above: Performed By: #### M ALBCRL #### [facility] [address] [place] [address] Dr. Kalie Rodas Creatinine [Mass/Vol] 8.07 mg/dL Critically high 0.70-1.30 [facility] Comment on above: Performed By: #### M ALBCRL #### [facility] [address] [place] [address] Dr. Kalie Rodas EGFR-AF SAUDI ARABIAN 8 mL/min/1.73m2 Critically low >=60 [facility] Comment on above: Performed By: #### M ALBCRL #### [facility] [address] [place] [address] Dr. Kalie Rodas Performed By: #### C VDTBH #### [facility] [address] [place] [address] Dr. Kalie Rodas EGFR-NON AF SAUDI ARABIAN 7 mL/min/1.73m2 Critically low >=60 [facility] Comment on above: Performed By: #### M ALBCRL #### [facility] [address] [place] [address] Dr. Kalie Rodas Glucose [Mass/Vol] 58 mg/dL Critically low 74-106 Th [facility] Comment on above: Performed By: #### M ALBCRL #### [facility] [address] [place] [address] Dr. Kalie Rodas Potassium [Moles/Vol] 4.4 mmol/L Normal 3.5-5.1 [facility] Comment on above: Performed By: #### M ALBCRL #### [facility] [address] [place] [address] Dr. Kalie Rodas Sodium [Moles/Vol] 133 mmol/L Critically low 136-145 Th [facility] Comment on above: Performed By: #### M ALBCRL #### [facility] [address] [place] [address] Dr. Kalie Rodas Urea nitrogen [Mass/Vol] 85.0 mg/dL Critically high 7.0-18.0 [facility] Comment on above: Performed By: #### M ALBCRL #### [facility] [address] [place] [address] Dr. Kalie Rodas Urea nitrogen/Creatinine [Mass ratio] 10.5 mg/mg Normal [facility] Comment on above: Performed By: #### M ALBCRL #### [facility] [address] [place] [address] Dr. Kalie Rodas URINE MICROSCOPIC ONLYon BACTERIA SMALL Abnormal NONE SEEN [facility] Comment on above: Performed By: #### M ALBCRL #### [facility] [address] [place] [address] Dr. Kalie Rodas Bacteria identified Cx Nom (U) INDICATED Normal [facility] Comment on above: Performed By: #### M ALBCRL #### [facility] [address] [place] [address] Dr. Kalie Rodas CAST SEEN Abnormal NONE SEEN [facility] Comment on above: Performed By: #### M ALBCRL #### [facility] [address] [place] [address] Dr. Kalie Rodas Crystals LM Nom (Urine sed) NONE SEEN Normal NONE SEEN [facility] Comment on above: Performed By: #### M ALBCRL #### [facility] [address] [place] [address] Dr. Kalie Rodas Epithelial cells LM Ql (Urine sed) FEW Abnormal NONE SEEN /RARE [facility] Comment on above: Performed By: #### M ALBCRL #### [facility] [address] [place] [address] Dr. Kalie Rodas HYALINE CAST RARE Normal [facility] Comment on above: Performed By: #### M ALBCRL #### [facility] [address] [place] [address] Dr. Kalie Rodas MUCOUS NONE SEEN Normal NONE SEEN [facility] Comment on above: Performed By: #### M ALBCRL #### [facility] [address] [place] [address] Dr. Kalie Rodas RBC 10-20 Abnormal 0-2 [facility] Comment on above: Performed By: #### M ALBCRL #### [facility] [address] [place] [address] Dr. Kalie Rodas WBC 10-20 Abnormal NONE SEEN [facility] Comment on above: Performed By: #### M ALBCRL #### [facility] [address] [place] [address] Dr. Kalie Rodas XR CHEST 1 Von [...] GABRIELE RICE Date: 2022-05-27 18:52 Normal [facility] RESPIRATORY PANEL PLUSon Adenovirus Not detected Normal NOT DETECTED [facility] Comment on above: Performed By: #### C MP, TSH #### [facility] [address] [address] [address] Kalie Metcalf Parapertusis Not detected Normal NOT DETECTED [facility] Comment on above: Performed By: #### C MP, TSH #### [facility] [address] [address] [address] Kalie Metcalf Pertussis Not detected Normal NOT DETECTED [facility] Comment on above: Performed By: #### C MP, TSH #### [facility] [address] [place] [address] Dr. Kalie Rodas Chlamydia Pneumoniae Not detected Normal NOT DETECTED [facility] Comment on above: Performed By: #### C MP, TSH #### [facility] [address] [place] [address] Dr. Kalie Rodas Coronavirus 229E Not detected Normal NOT DETECTED [facility] Comment on above: Performed By: #### C MP, TSH #### [facility] [address] [place] [address] Dr. Kalie Rodas Coronavirus HKU1 Not detected Normal NOT DETECTED [facility] Comment on above: Performed By: #### C MP, TSH #### [facility] [address] [place] [address] Dr. Kalie Rodas Coronavirus NL63 Not detected Normal NOT DETECTED [facility] Comment on above: Performed By: #### C MP, TSH #### [facility] [address] [place] [address] Dr. Kalie Rodas Coronavirus OC43 Not detected Normal NOT DETECTED [facility] Comment on above: Performed By: #### C MP, TSH #### [facility] [address] [place] [address] Dr. Kalie Rodas Influenza A H1 2009 Not detected Normal NOT DETECTED [facility] Comment on above: Performed By: #### C MP, TSH #### [facility] [address] [place] [address] Dr. Kalie Rodas Influenza A H3 Not detected Normal NOT DETECTED [facility] Comment on above: Performed By: #### C MP, TSH #### [facility] [address] [address] [address] Kalie Rodas Influenza B Not detected Normal NOT DETECTED [facility] Comment on above: Performed By: #### C MP, TSH #### [facility] [address] [address] [address] Kalie Rodas Metapneumovirus Not detected Normal NOT DETECTED [facility] Comment on above: Performed By: #### C MP, TSH #### [facility] [address] [place] [address] Dr. Kalie Rodas Mycoplas. Pneumoniae Not detected Normal NOT DETECTED [facility] Comment on above: Performed By: #### C MP, TSH #### [facility] [address] [place] [address] Dr. Kalie Rodas Parainfluenza 1 Not detected Normal NOT DETECTED [facility] Comment on above: Performed By: #### C MP, TSH #### [facility] [address] [place] [address] Dr. Kalie Rodas Parainfluenza 2 Not detected Normal NOT DETECTED [facility] Comment on above: Performed By: #### C MP, TSH #### [facility] [address] [place] [address] Dr. Kalie Rodas Parainfluenza 3 Not detected Normal NOT DETECTED [facility] Comment on above: Performed By: #### C MP, TSH #### [facility] [address] [place] [address] Dr. Kalie Rodas Parainfluenza 4 Not detected Normal NOT DETECTED [facility] Comment on above: Performed By: #### C MP, TSH #### [facility] [address] [place] [address] Dr. Kalie Rodas Rhino/Enterovirus Not detected Normal NOT DETECTED [facility] Comment on above: Performed By: #### C MP, TSH #### [facility] [address] [place] [address] Dr. Kalie Rodas RP2 Header 1 RESPIRATORY PANEL: VIRUSES Normal [facility] Comment on above: Performed By: #### C MP, TSH #### [facility] [address] [place] [address] Dr. Kalie Rodas RP2 Header 2 RESPIRATORY PANEL: BACTERIA Normal [facility] Comment on above: Performed By: #### C MP, TSH #### [facility] [address] [place] [address] Dr. Kalie Rodas RSV Not detected Normal NOT DETECTED [facility] Comment on above: Performed By: #### C MP, TSH #### [facility] [address] [place] [address] Dr. Kalie Rodas SARS-CoV-2 (COVID-19) RNA BENTLEY+probe Ql (Unsp spec) Detected Critically abnormal NOT DETECTED [facility] Comment on above: Performed By: #### C MP, TSH #### [facility] [address] [place] [address] Dr. Kalie Rodas MICROALBUMIN/ CREATININE RAT IOon 11-26-2021 Albumin, Urine 136.7 ug/mL Normal Not Estab. [facility] Comment on above: Performed By: #### M ALBCRL #### [facility] [address] [place] [address] Dr. Kalie Rodas Albumin/ Creatinine Ratio 81 mg/g creat Critically high 0-29 [facility] Comment on above: Result Comment: Norm al: 0 - 29 Moderately increased: 30 - 300 Severely increased: >300 Performed By: #### M ALBCRL #### [facility] [address] [place] [address] Dr. Kalie Rodas Creatinine, Urine 169.4 mg/dL Normal Not Estab. [facility] Comment on above: Performed By: #### M ALBCRL #### [facility] [address] [place] [address] Dr. Kalie Rodas VIT D 25-OH LABC[facility]Pon 2021 Vitamin D, 25-Hydroxy 43.3 ng/mL Normal 30.0-100.0 [facility] Comment on above: Result Comment: Heather min D deficiency has been defined by the [place] of [employer] and an Endocrine Society practice guideline as a level of serum 25-OH vitamin D less than 20 ng/mL (1,2). The Endocrine Society went on to further define vitamin D insufficiency as a level between 21 and 29 ng/mL (2). 1. IOM ([place] of [employer]). 2010. Dietary reference intakes for calcium and D. [place]: The National Academies Press. 2. Patricia DUMONT, Arron CROWLEY, Elizabeth CARBAJAL, et al. Evaluation, treatment, and prevention of vitamin D deficiency: an Endocrine Society clinical practice guideline. JCEM. 2010; 96(7):1911-30. Performed By: #### V ITADLC #### [facility] [address] [place] [address] Dr. Kalie Rodas CBC AUTO DIFFon 11-25-2021 BASO # 0.1 103/ul Normal 0.0-0.1 [facility] Comment on above: Performed By: #### C VDTBH #### [facility] [address] [place] [address] Dr. Kalie Rodas Basophils/100 WBC (Bld) 0.6 % Normal 0.2-2.0 [facility] Comment on above: Performed By: #### C VDTBH #### [facility] [address] [place] [address] Dr. Kalie Rodas EO # 0.3 103/ul Normal 0.0-0.7 [facility] Comment on above: Performed By: #### C VDTBH #### [facility] [address] [place] [address] Dr. Kalie Rodas Eosinophils/100 WBC (Bld) 3.1 % Normal 0.9-7.0 [facility] Comment on above: Performed By: #### C VDTBH #### [facility] [address] [place] [address] Dr. Kalie Rodas Erythrocyte distribution width (RBC) [Ratio] 13.4 % Normal 11.0-15.0 [facility] Comment on above: Performed By: #### C VDTBH #### [facility] [address] [place] [address] Dr. Kalie Rodas Hematocrit (Bld) [Volume fraction] 44.1 % Normal 42.0-54.0 [facility] Comment on above: Performed By: #### C VDTBH #### [facility] [address] [address] [address] Kalie Rodas Hemoglobin (Bld) [Mass/Vol] 15.0 g/dL Normal 14.0-18.0 [facility] Comment on above: Performed By: #### C VDTBH #### [facility] [address] [address] [address] Kalie Rodas IG # 0.05 10e3/ul Critically high 0.00-0.03 [facility] Comment on above: Performed By: #### C VDTBH #### [facility] [address] [place] [address] Dr. Kalie Rodas IG % 0.5 % Normal 0.0-0.5 [facility] Comment on above: Performed By: #### C VDTBH #### [facility] [address] [place] [address] Dr. Kalie Rodas LYMPH # 1.9 103/ul Normal 1.2-3.8 [facility] Comment on above: Performed By: #### C VDTBH #### [facility] [address] [place] [address] Dr. Kalie Rodas Lymphocytes/100 WBC (Bld) 20.0 % Critically low 20.5-60.0 [facility] Comment on above: Performed By: #### C VDTBH #### [facility] [address] [place] [address] Dr. Kalie Rodas MANUAL DIFF REQ NO Normal [facility] Comment on above: Performed By: #### C VDTBH #### [facility] [address] [address] [address] Kalie Rodas MCH (RBC) [Entitic mass] 31.1 pg Normal 25.9-34.0 [facility] Comment on above: Performed By: #### C VDTBH #### [facility] [address] [place] [address] Dr. Kalie Rodas MCHC (RBC) [Mass/Vol] 34.0 g/dL Normal 29.9-35.2 [facility] Comment on above: Performed By: #### C VDTBH #### [facility] [address] [address] [address] Kalie Rodas MCV (RBC) [Entitic vol] 91.3 fL Normal 80.0-94.0 [facility] Comment on above: Performed By: #### C VDTBH #### [facility] [address] [place] [address] Dr. Kalie Rodas MONO # 0.8 103/ul Normal 0.3-0.8 [facility] Comment on above: Performed By: #### C VDTBH #### [facility] [address] [place] [address] Dr. Kalie Rodas Monocytes/100 WBC (Bld) 8.4 % Normal 1.7-12.0 [facility] Comment on above: Performed By: #### C VDTBH #### [facility] [address] [place] [address] Dr. Kalie Rodas NEUT # 6.3 103/ul Normal 1.4-6.5 [facility] Comment on above: Performed By: #### C VDTBH #### [facility] [address] [place] [address] Dr. Kalie Rodas Neutrophils/100 WBC (Bld) 67.4 % Normal 43.0-75.0 [facility] Comment on above: Performed By: #### C VDTBH #### [facility] [address] [place] [address] Dr. Kalie Rodas Platelet mean volume (Bld) [Entitic vol] 9.4 fL Critically low 9.5-13.5 [facility] Comment on above: Performed By: #### C VDTBH #### [facility] [address] [place] [address] Dr. Kalie Rodas PLT 264 103/ul Normal 150-450 [facility] Comment on above: Performed By: #### C VDTBH #### [facility] [address] [place] [address] Dr. Kalie Rodas RBC 4.83 106/ul Normal 4.70-6.10 [facility] Comment on above: Performed By: #### C VDTBH #### [facility] [address] [address] [address] Kalie Rodas WBC 9.3 103/ul Normal 4.0-11.0 [facility] Comment on above: Performed By: #### C VDTBH #### [facility] [address] [address] [address] Kalie Rodas FREE T4on 11-25-2021 Free T4 [Mass/Vol] 0.94 ng/dL Normal 0.76-1.46 [facility] Comment on above: Performed By: #### F T4 #### [facility] [address] [address] [address] Kalie Rodas LIPID PROFILEon 11-25-2021 CHOL-HDL RATIO NORM SEE BELOW Normal [facility] Comment on above: Result Comment: 3.3 - 4.4 LOW RISK 4.4 - 7.1 AVERAGE RISK 7.1 - 11.0 MODERATE RISK >11.0 HIGH RISK Performed By: #### C MP, TSH #### [facility] [address] [place] [address] Dr. Kalie Rodas Cholesterol [Mass/Vol] 179 mg/dL Normal <=200 [facility] Comment on above: Performed By: #### C MP, TSH #### [facility] [address] [place] [address] Dr. Kalie Rodas Cholesterol in HDL [Mass/Vol] 40 mg/dL Normal 40-60 [facility] Comment on above: Performed By: #### C MP, TSH #### [facility] [address] [address] [address] Kalie Rodas Cholesterol in LDL [Mass/Vol] 108.0 mg/dL Normal [facility] Comment on above: Performed By: #### C MP, TSH #### [facility] [address] [place] [address] Dr. Kalie Rodas Cholesterol.total/Chol esterol in HDL [Mass ratio] 4.5 {ratio} Normal [facility] Comment on above: Performed By: #### C MP, TSH #### [facility] [address] [address] [address] Kalie Rodas HDL NORMAL > or = 60 mg/dl - LOW CARDIOVASCULAR RISK <40 mg/dl - HIGH CARDIOVASCULAR RISK Normal [facility] Comment on above: Performed By: #### C MP, TSH #### [facility] [address] [address] [address] Kalie Rodas LDL CALC NORMAL SEE BELOW Normal [facility] Comment on above: Result Comment: <100 mg/dl OPTIMAL 100 - 129 mg/dl NEAR OR ABOVE OPTIMAL 130 - 159 mg/dl BORDERLINE HIGH 160 - 189 mg/dl HIGH >190 mg/dl VERY HIGH Performed By: #### C MP, TSH #### [facility] [address] [address] [address] Kalie Rodas Triglyceride [Mass/Vol] 155 mg/dL Critically high <=150 [facility] Comment on above: Performed By: #### C MP, TSH #### [facility] [address] [address] [address] Kalie Rodas VLDL CALC 31.0 mg/dL Normal [facility] Comment on above: Performed By: #### C MP, TSH #### [facility] [address] [address] [address] Kalie Rodas PHOSPHORUSon 11-25-2021 Phosphate [Mass/Vol] 2.5 mg/dL Critically low 2.6-4.7 [facility] Comment on above: Performed By: #### C MP, TSH #### [facility] [address] [place] [address] Dr. Kalie Rodas PROF 14(COMP METB)on 022 Albumin [Mass/Vol] 3.7 g/dL Normal 3.4-5.0 [facility] Comment on above: Performed By: #### C MP, TSH #### [facility] [address] [place] [address] Dr. Kalie Rodas Albumin/Globulin [Mass ratio] 0.9 {ratio} Normal [facility] Comment on above: Performed By: #### C MP, TSH #### [facility] [address] [place] [address] Dr. Kalie Rodas ALP [Catalytic activity/Vol] 106 U/L Normal 46-116 [facility] Comment on above: Performed By: #### C MP, TSH #### [facility] [address] [address] [address] Kalie Rodas ALT [Catalytic activity/Vol] 28 U/L Normal 16-63 [facility] Comment on above: Performed By: #### C MP, TSH #### [facility] [address] [address] [address] Kalie Rodas Anion gap [Moles/Vol] 14.9 mmol/L Normal [facility] Comment on above: Performed By: #### C MP, TSH #### [facility] [address] [place] [address] Dr. Kalie Rodas AST [Catalytic activity/Vol] 23 U/L Normal 15-37 [facility] Comment on above: Performed By: #### C MP, TSH #### [facility] [address] [place] [address] Dr. Kalie Rodas Bilirubin [Mass/Vol] 0.4 mg/dL Normal 0.2-1.0 [facility] Comment on above: Performed By: #### C MP, TSH #### [facility] [address] [place] [address] Dr. Kalie Rodas Calcium [Mass/Vol] 9.2 mg/dL Normal 8.5-10.1 [facility] Comment on above: Performed By: #### C MP, TSH #### [facility] [address] [address] [address] Kalie Rodas Chloride [Moles/Vol] 103 mmol/L Normal 98-107 [facility] Comment on above: Performed By: #### C MP, TSH #### [facility] [address] [place] [address] Dr. Kalie Rodas CO2 [Moles/Vol] 23.0 mmol/L Normal 21.0-32.0 [facility] Comment on above: Performed By: #### C MP, TSH #### [facility] [address] [place] [address] Dr. Kalie Rodas Creatinine [Mass/Vol] 1.51 mg/dL Critically high 0.70-1.30 [facility] Comment on above: Performed By: #### C MP, TSH #### [facility] [address] [address] [address] Kalie Rodas EGFR-AF SAUDI ARABIAN 58 mL/min/1.73m2 Critically low >=60 [facility] Comment on above: Performed By: #### C MP, TSH #### [facility] [address] [address] [address] Kalie Rodas EGFR-NON AF SAUDI ARABIAN 48 mL/min/1.73m2 Critically low >=60 [facility] Comment on above: Performed By: #### C MP, TSH #### [facility] [address] [place] [address] Dr. Kalie Rodas Globulin (S) [Mass/Vol] 4.3 g/dL Normal [facility] Comment on above: Performed By: #### C MP, TSH #### [facility] [address] [place] [address] Dr. Kalie Rodas Glucose [Mass/Vol] 148 mg/dL Critically high 74-106 [facility] Comment on above: Performed By: #### C MP, TSH #### [facility] [address] [place] [address] Dr. Kalie Rodas Potassium [Moles/Vol] 3.9 mmol/L Normal 3.5-5.1 [facility] Comment on above: Performed By: #### C MP, TSH #### [facility] [address] [place] [address] Dr. Kalie Rodas Protein [Mass/Vol] 8.0 g/dL Normal 6.4-8.2 [facility] Comment on above: Performed By: #### C MP, TSH #### [facility] [address] [place] [address] Dr. Kalie Rodas Sodium [Moles/Vol] 137 mmol/L Normal 136-145 [facility] Comment on above: Performed By: #### C MP, TSH #### [facility] [address] [address] [address] Kalie Rodas Urea nitrogen [Mass/Vol] 23.0 mg/dL Critically high 7.0-18.0 [facility] Comment on above: Performed By: #### C MP, TSH #### [facility] [address] [address] [address] Kalie Rodas Urea nitrogen/Creatinine [Mass ratio] 15.2 mg/mg Normal [facility] Comment on above: Performed By: #### C MP, TSH #### [facility] [address] [address] [address] Kalie Rodas TSHon 11-25-2021 TSH 1.820 uIU/mL Normal 0.358-3.740 [facility] Comment on above: Performed By: #### C MP, TSH #### [facility] [address] [address] [address] Kalie Rodas Vital Signs Date Time Vital Sign Value Performing Clinician Facility 02-22-2023 03:46-0500 Diastolic blood pressure 85 mm[Hg] [facility] 02-22-2023 03:46-0500 Heart rate 81 /min [facility] 02-22-2023 03:46-0500 Respiratory rate 20 /min [facility] 02-22-2023 03:46-0500 SaO2% (BldA) [Mass fraction] 98 % [facility] 02-22-2023 03:46-0500 Systolic blood pressure 124 mm[Hg] [facility] 02-21-2023 21:34-0500 Body height 190.5 cm [facility] 02-21-2023 21:34-0500 Body temperature 98.2 [degF] [facility] 02-21-2023 21:34-0500 Body weight 143.78 kg [facility] 02-13-2023 07:30-0500 Body temperature 98.4 [degF] [facility] 02-13-2023 07:30-0500 Diastolic blood pressure 76 mm[Hg] [facility] 02-13-2023 07:30-0500 Heart rate 73 /min [facility] 02-13-2023 07:30-0500 Respiratory rate 18 /min [facility] 02-13-2023 07:30-0500 SaO2% (BldA) [Mass fraction] 96 % [facility] 02-13-2023 07:30-0500 Systolic blood pressure 124 mm[Hg] [facility] 02-08-2023 14:53-0400 Body height 190.5 cm [facility] 02-07-2023 19:10-0400 Respiratory rate 18 /min [facility] 02-07-2023 16:04-0400 Heart rate 74 /min [facility] 02-07-2023 13:17-0400 Body height 190.5 cm [facility] 02-07-2023 13:17-0400 Body temperature 98.2 [degF] [facility] 02-07-2023 13:17-0400 Body weight 141.9 kg [facility] 02-07-2023 13:17-0400 Diastolic blood pressure 64 mm[Hg] [facility] 02-07-2023 13:17-0400 SaO2% (BldA) [Mass fraction] 100 % [facility] 02-07-2023 13:17-0400 Systolic blood pressure 128 mm[Hg] [facility] 01-23-2023 17:47-0400 Heart rate 84 /min [facility] 01-23-2023 17:44-0400 Diastolic blood pressure 90 mm[Hg] [facility] 01-23-2023 17:44-0400 Respiratory rate 18 /min [facility] 01-23-2023 17:44-0400 SaO2% (BldA) [Mass fraction] 98 % [facility] 01-23-2023 17:44-0400 Systolic blood pressure 121 mm[Hg] [facility] 01-23-2023 16:21-0400 Body height 190.5 cm [facility] 01-23-2023 16:21-0400 Body temperature 98 [degF] [facility] 01-23-2023 16:21-0400 Body weight 142.4 kg [facility] 12-21-2022 14:00-0400 Body height 190.5 cm Fani Barkers Other [employer] Other 12-21-2022 14:00-0400 Body mass index (BMI) [Ratio] 40.59 kg/m2 Fani Barkers Other [employer] Other 12-21-2022 14:00-0400 Body temperature 96 [degF] Fani Barkers Other [employer] Other 12-21-2022 14:00-0400 Body weight 147.33 kg Fani Barkers Other [employer] Other 12-21-2022 14:00-0400 Diastolic blood pressure 87 mm[Hg] Azcandy Barkers Other [employer] Other 12-21-2022 14:00-0400 Respiratory rate 20 /min Fani Barkers Other [employer] Other 12-21-2022 14:00-0400 SaO2% (BldA) [Mass fraction] 99 % Fani Barkers Other [employer] Other 12-21-2022 14:00-0400 Systolic blood pressure 135 mm[Hg] Azcandy Barkers Other [employer] Other 09-08-2022 11:30-0400 Diastolic blood pressure 78 mm[Hg] Gillian Batista MD Work Phone: [email or web address] 09-08-2022 11:30-0400 Heart rate 76 /min Gillian Batista MD Work Phone: [facility] [employer] 09-08-2022 11:30-0400 Respiratory rate 16 /min Gillian Batista MD [facility] Phone: [facility] 09-08-2022 11:30-0400 SaO2% (BldA) [Mass fraction] 96 % Gillian Batista MD Work Phone: [facility] 09-08-2022 11:30-0400 Systolic blood pressure 126 mm[Hg] Gillian Batista MD Work Phone: [facility] 09-08-2022 10:06-0400 Body height 190.5 cm Gillian Batista MD Work Phone: [facility] [email or web address] 09-08-2022 10:06-0400 Body mass index (BMI) [Ratio] 40 kg/m2 Gillian Batista MD Work Phone: [facility] 09-08-2022 10:06-0400 Body temperature 97.7 [degF] Gillian Batista MD Work Phone: [facility] 09-08-2022 10:06-0400 Body weight 145.15 kg Gillian Batista MD Work Phone: [facility] 07-08-2022 05:42-0400 Body temperature 97.9 [degF] Sachin Mckeon MD Work Phone: [facility] 07-08-2022 05:42-0400 Diastolic blood pressure 67 mm[Hg] Sachin Mckeon MD Work Phone: [facility] [employer] 07-08-2022 05:42-0400 Heart rate 64 /min Sachin Mckeon MD Work Phone: [facility] [employer] 07-08-2022 05:42-0400 Respiratory rate 18 /min Sachin Mckeon MD Work Phone: [facility] [employer] 07-08-2022 05:42-0400 SaO2% (BldA) [Mass fraction] 97 % Sachin Mckeon MD Work Phone: [facility] [employer] 07-08-2022 05:42-0400 Systolic blood pressure 131 mm[Hg] Sachin Mckeon MD Work Phone: [facility] [employer] 07-07-2022 13:22-0400 Body height 195.6 cm Sachin Mckeon MD Work Phone: [facility] [employer] 07-07-2022 13:18-0400 Body mass index (BMI) [Ratio] 37.91 kg/m2 Sachin Mckeon MD Work Phone: [facility] [employer] 07-07-2022 13:18-0400 Body weight 145 kg Sachin Mckeon MD Work Phone: [facility] [employer] 06-30-2022 07:37-0400 Body temperature 97.5 [degF] Carlyle Gilmore MD Work Phone: [facility] [employer] 06-30-2022 07:37-0400 Diastolic blood pressure 84 mm[Hg] Carlyle Gilmore MD Work Phone: [facility] [employer] 06-30-2022 07:37-0400 Heart rate 84 /min Carlyle Gilmore MD Work Phone: [facility] [employer] 06-30-2022 07:37-0400 Respiratory rate 19 /min Carlyle Gilmore MD Work Phone: [facility] [employer] 06-30-2022 07:37-0400 SaO2% (BldA) [Mass fraction] 91 % Carlyle Gilmore MD Work Phone: [email or web address] 06-30-2022 07:37-0400 Systolic blood pressure 126 mm[Hg] Carlyle Gilmore MD Work Phone: [facility] [employer] 06-30-2022 05:12-0400 Body mass index (BMI) [Ratio] 40.08 kg/m2 Carlyel Gilmore MD Work Phone: [facility] [employer] 06-30-2022 05:12-0400 Body weight 153.3 kg Carlyle Gilmore MD Work Phone: [facility] [employer] 06-28-2022 13:25-0400 Body height 195.6 cm Carlyle Gilmore MD Work Phone: [facility] [employer] 06-11-2022 05:55-0500 Body temperature 97.7 [degF] Sachin Mckeon MD Work Phone: [facility] [employer] 06-11-2022 05:55-0500 Diastolic blood pressure 87 mm[Hg] Sachin Mckeon MD Work Phone: [facility] [employer] 06-11-2022 05:55-0500 Heart rate 79 /min Sachin Mckeon MD Work Phone: [facility] [employer] 06-11-2022 05:55-0500 Respiratory rate 16 /min Sachin Mckeon MD Work Phone: [facility] [employer] 06-11-2022 05:55-0500 SaO2% (BldA) [Mass fraction] 93 % Sachin Mckeon MD Work Phone: [facility] [employer] 06-11-2022 05:55-0500 Systolic blood pressure 132 mm[Hg] Sachin Mckeon MD Work Phone: [facility] [employer] 06-09-2022 10:01-0500 Body mass index (BMI) [Ratio] 42.82 kg/m2 Sachin Mckeon MD Work Phone: [facility] [employer] 06-09-2022 10:01-0500 Body weight 159.49 kg Sachin Mckeon MD Work Phone: [facility] [employer] 06-05-2022 10:18-0500 Body height 193 cm Sachin Mckeon MD Work Phone: [facility] [employer] 06-04-2022 16:31-0500 Body temperature 97.7 [degF] Stefani Orlop DO Work Phone: [email or web address] 06-04-2022 16:31-0500 Diastolic blood pressure 95 mm[Hg] Stefani Orlop DO Work Phone: [email or web address] 06-04-2022 16:31-0500 Heart rate 76 /min Stefani Orlop DO Work Phone: [email or web address] 06-04-2022 16:31-0500 Respiratory rate 18 /min Stefani Orlop DO Work Phone: [email or web address] 06-04-2022 16:31-0500 SaO2% (BldA) [Mass fraction] 96 % Stefani Orlop DO Work Phone: [email or web address] 06-04-2022 16:31-0500 Systolic blood pressure 146 mm[Hg] Stefani Orlop DO Work Phone: [email or web address] 06-04-2022 11:39-0500 Body height 193 cm Stefani Orlop DO Work Phone: [email or web address] 06-04-2022 05:50-0500 Body mass index (BMI) [Ratio] 43.85 kg/m2 Stefani Orlop DO Work Phone: [email or web address] 06-04-2022 05:50-0500 Body weight 163.3 kg Stefani Orlop DO Work Phone: [facility] [employer] Encounters Encounter Date Encounter Type Care Provider Facility Start: 08-03-2023 End: 08-03-2023 ambulatory GORDO LOW Not Available Start: 07-27-2023 End: 07-27-2023 ambulatory LEXIS KEEN Not Available Start: 07-19-2023 End: 07-19-2023 ambulatory [facility] Start: 07-07-2023 End: 07-07-2023 ambulatory LEXIS KEEN Not Available Start: 06-16-2023 End: 06-16-2023 ambulatory LEXIS Dumont FINN-NOSSEK Not Available Start: 06-03-2023 ambulatory Gary Smith acility:[facility] Start: 05-18-2023 Chart abstracting Gordo herrera MD Work Phone: [facility] [id number] Start: 05-17-2023 End: 05-25-2023 Evaluation and management of inpatient NATALIYA DUNN [facility] Start: 05-17-2023 End: 05-17-2023 ambulatory LEXIS Dumont FINN-NOSSEK Not Available Start: 05-17-2023 End: 05-17-2023 Office outpatient visit 40 minutes Lexis Dumont Finn-Nossek PHYSICAL THERAPIST-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 Comment on above: Major depressive dis order, single episode, moderate (HCC) (CMS/HCC) Start: 05-17-2023 Clinisync Result Encounter Generic External Data Provider [facility] External Department Unsolicited Start: 05-17-2023 Clinisync Result Encounter Generic External Data Provider [facility] External Department Unsolicited Start: 04-19-2023 End: 04-19-2023 ambulatory LEXIS Dumont FINN-NOSSEK Not Available Start: 04-19-2023 End: 04-19-2023 ambulatory GORDO LOW Not Available Start: 03-31-2023 End: 03-31-2023 ambulatory GORDO LOW Not Available Start: 03-22-2023 End: 03-22-2023 ambulatory LEXIS Julia FINN-NOSSEK Not Available Start: 03-17-2023 End: 03-17-2023 ambulatory LAKISHA VIZCARRA Not Available Start: 03-08-2023 End: 03-08-2023 ambulatory DARION RANDLE Not Available Start: 03-01-2023 End: 03-01-2023 ambulatory GORDO LOW Not Available Start: 02-24-2023 End: 02-24-2023 ambulatory LEXIS Julia FINN-NOSSEK Not Available Start: 02-21-2023 End: 02-22-2023 Emergency department patient visit Rugen M Jer Facility:[facility] Start: 02-21-2023 End: 02-22-2023 Emergency department patient visit [facility] Work Phone: Start: 02-15-2023 End: 02-15-2023 ambulatory Aziz Bakhous Other [employer] Other Start: 02-15-2023 Telephone encounter Aziz Bakhous [facility] Start: 02-07-2023 End: 02-13-2023 Evaluation and management of inpatient Darion Randle Facility:[facility] Start: 02-07-2023 End: 02-13-2023 Evaluation and management of inpatient [facility] [facility] Work Phone: Start: 01-24-2023 End: 01-24-2023 ambulatory Aziz Bakhous Other [employer] Other Start: 01-24-2023 Telephone encounter Aziz Bakhous [facility] Start: 01-23-2023 End: 01-23-2023 Emergency department patient visit Jessica Black Facility:[facility] Start: 01-23-2023 End: 01-23-2023 Emergency department patient visit [facility] Work Phone: Start: 12-21-2022 End: 12-21-2022 ambulatory Aziz Bakhous Other [employer] Other Start: 12-21-2022 Office outpatient vi sit 25 minutes Aziz Bakhous [facility] Start: 09-24-[facility]22 [facility] Start: 09-08-2022 End: 09-08-2022 [facility] Start: 09-08-2022 End: 09-08-2022 Subsequent hospital visit by physician Gillian Batista MD Work Phone: [facility] [employer] Start: 09-03-2022 End: 09-03-2022 ambulatory Aziz Bakhous Other [facility] [employer] Other Start: 09-03-2022 Telephone encounter Fani Dill [facility] Start: 08-23-2022 End: 08-24-2022 ambulatory FANI DILL Facility:[facility] Start: 08-09-2022 End: 08-09-2022 ambulatory [facility] Start: 08-01-2022 End: 08-02-[address] DARION RANDLE Facility:[facility] Start: 07-26-[address] DARION RANDLE Facility: [facility] Start: 07-15-2022 End: 07-19-2022 Evaluation and management of inpatient JÚNIOR RYAN [facility] Start: 07-14-2022 End: 07-15-2022 ambulatory KENDELL DIAB . Facility:[facility] Start: 06-30-2022 End: 07-08-2022 Evaluation and management of inpatient [facility] Start: 06-30-2022 End: 07-08-2022 Evaluation and management of inpatient Sachin Mckeon MD Work Phone: [facility] Comment on above: Debility (Primary Dx ) Start: 06-20-2022 End: 06-30-2022 Evaluation and management of inpatient [facility] Start: 06-20-2022 End: 06-30-2022 Evaluation and management of inpatient Carlyle Gilmore MD Work Phone: [address] Onc/Med Surg Start: 06-04-2022 End: 06-11-2022 Evaluation and management of inpatient [facility] Start: 06-04-2022 End: 06-11-2022 Evaluation and management of inpatient Sachin Mckeon MD Work Phone: [facility] Comment on above: Stage 3a chronic kid nando disease (HCC) (Primary Dx); Type 2 diabetes mellitus with stage 3a chronic kidney disease, unspecified whether wharf tally clerk insulin use (HCC); Physical deconditioning Start: 05-28-2022 End: 06-04-2022 Evaluation and management of inpatient STEFANI AUGUSTIN [facility] Start: 05-28-2022 End: 06-04-2022 Evaluation and management of inpatient Stefani Augustin DO Work Phone: [facility] Comment on above: Acute renal failure with acute cortical necrosis (HCC) (Primary Dx); Left ureteral stone Start: 05-27-2022 End: 05-28-2022 Evaluation and management of inpatient DR LAKISHA CARRIZALES . Facility:[facility] Start: 04-16-[address] DARION RANDLE Facility: [facility] Start: 03-31-2022 End: 03-31-[address] DOCTOR HUSSEIN Facility:[facility] Start: 11-25-2021 End: 11-26-2021 ambulatory AVA LESLIE Facility:[facility] Start: 09-17-2016 End: 09-18-2016 Ambulatory DIONE GILLESPIE Facility:[facility] Procedures Date Procedure Procedure Detail Performing Clinician Start: 05-17-2023 MHPT CULT,URINE Generic External Data Provider Start: 02-07-2023 Urine culture Start: 01-23-2023 Plain [...] Phone: Start: 06-30-2022 Glucose blood reagent strip Betty Hess MD Work Phone: Start: 06-30-2022 Basic metabolic pane l calcium total Yo Batista MD Work Phone: Start: 06-30-2022 Glucose blood reagent strip Betty Hess MD Work Phone: Start: 06-29-2022 Glucose blood reagent strip Betty Hess MD Work Phone: Start: 06-29-2022 Glucose blood reagent strip Betty Hess MD Work Phone: Start: 06-29-2022 BASIC METABOLIC PANE L W/ REFLEX TO MG FOR LOW K Miles Mitchell MD Work Phone: Start: 06-29-2022 End: 06-29-2022 Blood count complete auto&auto difrntl wbc Miles Mitchell MD Work Phone: Start: 06-29-2022 Glucose blood reagent strip Betty Hess MD Work Phone: Start: 06-29-2022 Fluoroscopy during operation Kevin Myles MD Work Phone: Start: 06-29-2022 End: 06-29-2022 URETEROSCOPY STONE REMOVAL LASER Kevin Myles MD Work Phone: Start: 06-29-2022 CALCIUM, IONIC (POC) Coral Hess MD Work Phone: Start: 06-29-2022 CREATININE W/GFR POI NT OF CARE Betty Hess MD Work Phone: Start: 06-29-2022 ELECTROLYTES PLUS Willi Hess MD Work Phone: Start: 06-29-2022 Gluc bld gluc mntr d ev cleared fda spec home use Betty Hess MD Work Phone: Start: 06-29-2022 Glucose [...] 06-24-2022 Rplcmt compl non-hernesto cvc w/o subq port/irrigationist designer Angel Frazier MD Work Phone: Start: 06-24-2022 [...] Basic metabolic pane l calcium total Adrienne Means MD Work Phone: Start: 06-22-2022 End: [...] Work Phone: Start: 06-21-2022 EOSINOPHILS, URINE Eitan aron Frazier MD Work Phone: Start: 06-21-2022 [employer]ofixj [...] Phone: Start: 06-20-2022 Glucose blood reagent strip Betty Hess MD Work Phone: Start: 06-20-2022 Glucose blood reagent strip Betty Hess MD Work Phone: Start: 06-20-2022 Glucose blood reagent strip Betty Hess MD Work Phone: Start: 06-20-2022 Urnls dip stick/tabl et rgnt auto w/o microscopy Betty Hess MD Work Phone: Start: 06-20-2022 End: 06-20-2022 Culture bacterial quanttative colony count urine Jessenia Eduardo MD Work Phone: Start: 06-20-2022 LACTATE, SEPSIS Jose Raul Stack Sharp DO Work Phone: Start: 06-20-2022 End: 06-20-2022 Basic metabolic panel calcium total Jose Raul Stack Sharp DO Work Phone: Start: 06-20-2022 Ct abdomen & pelvis w/o contrast material Jose Raul Stack Sharp DO Work Phone: Start: 06-20-2022 Ct head/brain w/o co ntrast material Jose Raul Stack Sharp DO Work Phone: Start: 06-20-2022 Radiologic exam ches t single view Jose Raul Stack Sharp DO Work Phone: Start: 06-20-2022 Urnls dip stick/tabl et rgnt auto w/o microscopy Jose Raul Stack Sharp DO Work Phone: Start: 06-20-2022 COVID-19, RAPID Jose Raul Stack Sharp DO Work Phone: Start: 06-20-2022 LACTATE, [...] Phone: Start: 06-06-2022 Glucose blood reagent strip Sacihn Mckeon MD Work Phone: Start: 06-05-2022 Glucose blood reagent strip Sachin Mckeon MD Work Phone: Start: 06-05-2022 Glucose blood reagent strip Sachin Mckeon MD Work Phone: Start: 06-05-2022 Glucose blood reagent strip Sachin Mckeno MD Work Phone: Start: 06-05-2022 BASIC METABOLIC [...] TO MG FOR LOW K Yesenia Espino PHYSICAL THERAPIST - [employer] Work Phone: Start: 06-02-2022 End: 06-02-2022 Blood count complete automated Yesenia Espino PHYSICAL THERAPIST - [employer]PATCH[employer] Work Phone: Start: 06-01-2022 Glucose blood reagent [...] TO MG FOR LOW K Yesenia Espino PHYSICAL THERAPIST - [employer] DISPATCHER Work Phone: Start: 06-01-2022 Blood count complete automated Yesenia Espino PHYSICAL THERAPIST - [employer] EM[employer]ENC[employer] DISPATCHER Work Phone: Start: 06-01-2022 Glucose blood reagent [...] TO MG FOR LOW K Yesenia Espino PHYSICAL THERAPIST - [employer] EM[employer]ENC[employer] DISPATCHER Work Phone: Start: 05-31-2022 End: 05-31-2022 Blood count complete automated Yesenia Espino PHYSICAL THERAPIST - [employer] EM[employer]ENCY DISPATCHER Work Phone: Start: 05-30-2022 Glucose blood reagent strip Stefani Hameedp DO Work Phone: Start: 05-30-2022 Glucose blood reagent strip Rosales Singh MD Work Phone: Start: 05-30-2022 Electrolyte panel Monique Triplett MD Work Phone: Start: 05-30-2022 Glucose blood reagent strip Stefani Augustin DO Work Phone: Start: 05-30-2022 Electrolyte panel Monique Triplett MD Work Phone: Start: 05-30-2022 Glucose blood reagent strip Stefani Kinglop DO Work Phone: Start: 05-30-2022 Assay of magnesium Parminder Babb MD Work Phone: Start: 05-29-2022 Electrolyte panel Monique Triplett MD Work Phone: Start: 05-29-2022 Glucose blood reagent strip Stefanikenneth Kinglop DO Work Phone: Start: 05-29-2022 Glucose blood reagent strip Stefanikenneth Kinglop DO Work Phone: Start: 05-29-2022 Ecg routine ecg w/le ast 12 lds trcg only w/o i&r Yesenia Kenzie Seay [employer] Work Phone: Start: 05-29-2022 Glucose blood reagent strip Stefani Kristy Augustin DO Work Phone: Start: 05-29-2022 Glucose blood reagent strip Stefani Kristy Augustin DO Work Phone: Start: 05-29-2022 Hemoglobin glycosylated a1c Yesenia Stomer [place] - [employer] DISPATCHER Work Phone: Start: 05-29-2022 Radiologic exam ches t single view Yeseniajael Seay [employer] Work Phone: Start: 05-28-2022 Us retroperitoneal r eal time w/image complete Mirela Babb MD Work Phone: Start: 05-28-2022 End: 05-28-2022 Assay of parathormone Mane Bowie Work Phone: Start: 05-28-2022 Complement antigen e ach component Mane Triplett MD Work Phone: Start: 05-28-2022 IMMUNOFIXATION SERUM PROFILE Mane Triplett MD Work Phone: Start: 05-28-2022 Culture bacterial quanttative colony count urine Stefani Augustin DO Work Phone: Start: 05-28-2022 Fluoroscopy during operation Kevin Myles MD Work Phone: Start: 05-28-2022 End: 05-28-2022 Creatinine other source Yesenia Seay NP Work Phone: Start: 05-28-2022 End: 05-28-2022 CYSTOSCOPY URETERAL STENT INSERTION Kevin Myles MD Work Phone: Start: 05-28-2022 End: 05-28-2022 Culture bacterial quanttative colony count urine Yesenia Espino PHYSICAL THERAPIST - [employer] Work Phone: Start: 05-28-2022 CULTURE, BLOOD 1 Beba Gonzáles PA-C Work Phone: Start: 05-28-2022 End: 05-28-2022 Assay of magnesium Mirela Babb MD Work Phone: Start: 06-09-2018 Colonoscopy Stefani Or lop DO Work Phone: Plan of Treatment Date Care Activity Detail Author Start: 06-09-2028 Screening for malignant neoplasm of colon [facility] [employer] [facility] Start: 07-20-2023 Hemoglobin A1c measurement A1C test (Diabetic or Prediabetic) [facility] Start: 06-16-2023 End: 06-16-2023 Patient encounter procedure 06/16/2023 2:00 PM EST Office Visit [facility] [address] [facility] [address] [place] [id number] Lexis Keen, PHYSICAL THERAPIST-PILE DRIVER OPERATOR [facility] [address] [place] [facility] [address] [place] [address] [facility] Start: 06-11-2023 GFR test (Diabetes, CKD 3-4, OR last GFR 15-59) GFR test (Diabetes, CKD 3-4, OR last GFR 15-59) [facility] Start: 06-04-2023 GFR test (Diabetes, CKD 3-4, OR last GFR 15-59) GFR test (Diabetes, CKD 3-4, OR last GFR 15-59) [facility] Start: 05-30-2023 Hemoglobin A1c measurement [facility] Start: 05-19-2023 End: 05-19-2023 Patient encounter procedure 05/19/2023 8:00 AM EST Office Visit [facility] [address] [place] [address] Gordo Low MD [address] [place] [id number] [facility] Start: 03-03-2023 Hemoglobin A1c measurement Diabetes: Hemoglobin A1C [facility] Start: 02-22-2023 Bacteria identified in Urine by Culture Urine Culture [facility] Start: 02-22-2023 CT Abdomen and Pelvi s WO contrast [facility] Start: 02-22-2023 CT of abdomen and pelvis without contrast CT abdomen pelvis wo con [facility] Start: 02-13-2023 [facility] Start: 02-07-2023 Hospital admission [facility] Start: 02-07-2023 Bacteria identified in Urine by Culture [facility] Start: 11-09-2022 Influenza vaccination Flu vacc ine (Season Ended) [facility] Start: 08-30-2022 End: 08-30-2022 Patient encounter procedure 08/30/2022 Office Visit Physical Medicine and Rehab Marcus Yepez MD [address] [id number] [facility] Start: 08-30-2022 End: 08-30-2022 ambulatory [facility] Physica l Medicine & Rehabilitation Start: 08-19-2022 End: 08-19-2022 ambulatory [facility] Start: 08-19-2022 End: 08-19-2022 Patient encounter procedure 08/19/2022 Office Visit Urology Kevin Myles MD [address] [facility], [address] [place], [place] [id number] [facility] Start: 08-09-2022 End: 08-09-2022 ambulatory [facility] Start: 08-09-2022 End: 08-09-2022 Patient encounter procedure 08/09/2022 Office Visit Neurology Kayli Preciado MD [address] [place] [id number] [facility] [address] [facility] Start: 08-03-2022 End: 08-03-2022 ambulatory [facility] Start: 08-03-2022 End: 08-03-2022 Patient encounter procedure 08/03/2022 Office Visit Nephrology Mane Triplett MD [address] [facility], [place] [address] [facility] Start: 06-15-2022 End: 06-15-2022 Admission to same day surgery center 06/15/2022 Surgery IP Unit Kevin Myles MD [address] [facility], [address] [place] [address] HOLMIUM, CYSTOSCOPY, URETEROSCOPY, STENT EXCHANGE [facility] Comment on above: HOLMIUM, CYSTOSCOPY, URETEROSCOPY, STENT EXCHANGE Start: 06-15-2022 End: 06-15-2022 Cysto/uretero w/lithotripsy &indwell stent insrt URETEROSCOPY STONE REMOVAL LASER Ureteral stone 06/15/2022 8:00 AM [facility] Start: 06-15-2022 Subsequent hospital visit by physician 06/15/2022 Hospital Encounter IP Unit Kevin Myles MD [address] [facility], [address] [place] [address] [facility] Start: 06-14-2022 End: 06-10-2023 Basic metabolic 2000 panel - Serum or Plasma Basic Metabolic Panel Lab Routine Type 2 diabetes mellitus with stage 3a chronic kidney disease, unspecified whether wharf tally clerk insulin use (HCC) Expected: 06/14/2022, Expires: 06/10/2023 [facility] Work Phone: Comment on above: Expected: 06/14/2022 , Expires: 06/10/2023 Start: 11-09-2021 Influenza vaccination Flu vaccine (# 1) [facility] Start: 11-09-2021 [facility] Start: 10-30-2020 COVID-19 Vaccine (2 - Booster for [place] series) COVID-19 Vaccine (2 - Booster for [place] series) [facility] Start: 10-30-2020 [facility] Start: 05-19-2020 Glaucoma screening Diabetes: R etinopathy Screening [facility] Start: 01-20-2012 Shingles vaccine (1 of 2) Shingles vaccine (1 of 2) [facility] Start: 01-20-2012 [facility] Start: 2007 Screening for malignant neoplasm of colon [facility] Start: 1982 Hepatitis B vaccine (1 of 3 - Risk Dialysis 4-dose series) Hepatitis B vaccine (1 of 3 - Risk Dialysis 4-dose series) [facility] Start: 1982 [facility] Start: 1981 DTaP/Tdap/Td vaccine (1 - Tdap) DTaP/Tdap/Td vaccine (1 - Tdap) [facility] Start: 1981 Shingles vaccine (1 of 2) Shingles vaccine (1 of 2) [facility] Start: 1981 [facility] Start: 01-20-1980 Glaucoma screening [facility] Start: 01-20-1980 Hepatitis C screening Hepatitis C sc reen [facility] Start: 01-20-1980 Urine screening for protein Diabetic Alb to Cr ratio (uACR) test [facility] Start: 1977 HIV screening [facility] Start: 1974 Depression Monitoring Depression Mon itoring [facility] Start: 1974 Depression Screen Depression Screen [facility] Start: 1974 [facility] Start: 01-20-1972 Diabetic foot examination [facility] Start: 01-20-1972 Lipid panel [facility] Start: 01-20-1968 Pneumococcal 0-64 years Vaccine (1 - PCV) Pneumococcal 0-64 years Vaccine (1 - PCV) [facility] Start: 01-20-1968 [facility] Start: 1962 Screening for malignant neoplasm of colon [facility] Adult NIV/Positive Airway Pressure [facility] [employer] Work Phone: Adult NIV/Positive Airway Pressure Adult NIV/Positive Airway Pressure Respiratory Care Routine Every 4hr until discontinued starting 06/30/2022 [employer] Phone: Comment on above: Every 4hr until disc ontinued starting 06/30/2022 Bacteria identified in Urine by Culture [facility] End: 07-01-2022 Basic metabolic 2000 panel - Serum or Plasma Basic Metabolic Panel Lab Routine Acute renal failure with acute cortical necrosis (HCC) Once a week for 3 Occurrences starting 06/03/2022 until 07/01/2022 [employer] Phone: Comment on above: Once a week for 3 Oc currences starting 06/03/2022 until 07/01/2022 End: 07-22-2022 Basic Metabolic Panel w/ Reflex to MG Basic Metabolic Panel w/ Reflex to MG Lab Routine Weekly for 4 Occurrences starting 07/01/2022 until 07/22/2022, 2 completed [employer] Phone: Comment on above: Weekly for 4 Occurre nces starting 07/01/2022 until 07/22/2022, 2 completed End: 07-27-2022 Basic Metabolic Panel w/ Reflex to MG Basic Metabolic Panel w/ Reflex to MG Lab Routine Weekly for 4 Occurrences starting 07/06/2022 until 07/27/2022, 1 completed [employer] Phone: Comment on above: Weekly for 4 Occurre nces starting 07/06/2022 until 07/27/2022, 1 completed End: 07-31-2022 Basic Metabolic Panel w/ Reflex to MG Basic Metabolic Panel w/ Reflex to MG Lab Routine Weekly for 4 Occurrences starting 07/10/2022 until 07/31/2022 [employer] Phone: Comment on above: Weekly for 4 Occurre nces starting 07/10/2022 until 07/31/2022 End: 07-22-2022 CBC W Auto Differential panel - Blood CBC auto differential Lab Routine Weekly for 4 Occurrences starting 07/01/2022 until 07/22/2022, 2 completed [employer] Phone: Comment on above: Weekly for 4 Occurre nces starting 07/01/2022 until 07/22/2022, 2 completed Continuous pulse oximetry Pulse oximetry, continuous Respiratory Care Routine Every 4hr until discontinued starting 05/29/2022 [employer] Phone: Comment on above: Every 4hr until disc ontinued starting 05/29/2022 Continuous pulse oximetry Pulse oximetry, continuous Respiratory Care Routine Every 4hr until discontinued starting 06/30/2022 [employer] Phone: Comment on above: Every 4hr until disc ontinued starting 06/30/2022 Glucose [Mass/volume ] in Serum or Plasma [employer] Phone: Comment on above: 4X Daily (AC & HS) u ntil discontinued starting 05/29/2022 As Needed until disc ontinued starting 05/29/2022 Glucose [Mass/volume ] in Serum or Plasma [employer] Phone: Comment on above: 4X Daily (AC & HS) u ntil discontinued starting 06/04/2022 As Needed until disc ontinued starting 06/04/2022 Glucose [Mass/volume ] in Serum or Plasma [employer] Phone: Glucose [Mass/volume ] in Serum or Plasma [employer] Phone: Comment on above: 4X Daily (AC & HS) u ntil discontinued starting 06/30/2022 As Needed until disc ontinued starting 06/30/2022 End: 06-28-2022 Hemodialysis [facility] Phone: Hemodialysis Hemodialysis Radha lysis Routine Once per day on Tue Sat until discontinued starting 07/03/2022 [employer] Phone: Comment on above: Once per day on Tue Sat until discontinued starting 07/03/2022 End: 06-24-2022 Hemodialysis inpatient [employer] Phone: End: 06-25-2022 Hemodialysis inpatient [employer] Phone: End: 06-29-2022 Hemodialysis inpatient [employer] Phone: Home BIPAP or CPAP Home BIPAP or CPAP Respiratory Care Routine Daily until discontinued starting 05/31/2022 [employer] Phone: Comment on above: Daily until disconti nued starting 05/31/2022 Home BIPAP or CPAP Home BIPAP or CPAP Respiratory Care Routine Daily until discontinued starting 06/05/2022 [employer] Phone: Comment on above: Daily until disconti nued starting 06/05/2022 End: 05-28-2022 Insert/Change Carballo Catheter Insert/Change Carballo Catheter Procedure STAT One Time for 1 Occurrences starting 05/28/2022 until 05/28/2022 [employer] Phone: Comment on above: One Time for 1 Occur rences starting 05/28/2022 until 05/28/2022 Intermittent pulse oximetry Pulse Oximetry Spot Check Respiratory Care Routine As Needed until discontinued starting 05/28/2022 [employer] Phone: Comment on above: As Needed until disc ontinued starting 05/28/2022 Intermittent pulse oximetry Pulse Oximetry Spot Check Respiratory Care Routine As Needed until discontinued starting 06/04/2022 [employer] Phone: Comment on above: As Needed until disc ontinued starting 06/04/2022 End: 06-20-2022 Intermittent pulse oximetry [employer] Phone: Intermittent pulse oximetry Pulse Oximetry Spot Check Respiratory Care Routine As Needed until discontinued starting 06/30/2022 [employer] Phone: Comment on above: As Needed until disc ontinued starting 06/30/2022 End: 07-02-2022 Intermittent pulse oximetry Pulse Oximetry Spot Check Respiratory Care Routine One Time for 1 Occurrences starting 07/02/2022 until 07/02/2022 [employer] Phone: Comment on above: One Time for 1 Occur rences starting 07/02/2022 until 07/02/2022 End: 09-08-2022 IR REMOVE TUNNELED CVAD WO SQ PORT/PUMP IR REMOVE TUNNELED CVAD WO SQ PORT/PUMP Imaging Routine Once for 1 Occurrences starting 09/08/2022 until 09/08/2022 [employer] Phone: Comment on above: Once for 1 Occurrenc es starting 09/08/2022 until 09/08/2022 Nasal Cannula Oxygen Nasal Cannu la Oxygen Respiratory Care Routine Daily until discontinued starting 05/29/2022 [employer] Phone: Comment on above: Daily until disconti nued starting 05/29/2022 Nasal Cannula oxygen Nasal Cannu la oxygen Respiratory Care Routine As Needed until discontinued starting 06/04/2022 [employer] Phone: Comment on above: As Needed until disc ontinued starting 06/04/2022 Nasal Cannula oxygen Nasal Cannu la oxygen Respiratory Care Routine Daily until discontinued starting 06/30/2022 [employer] Phone: Comment on above: Daily until disconti nued starting 06/30/2022 Oxygen therapy [Minimum Data Set] Initiate Oxygen Therapy Protocol Respiratory Care Routine As Needed until discontinued starting 05/28/2022 [employer] Phone: Comment on above: As Needed until disc ontinued starting 05/28/2022 Oxygen therapy [Minimum Data Set] [employer] Phone: Comment on above: As Needed until disc ontinued starting 06/04/2022 Daily until disconti nued starting 06/04/2022 Oxygen therapy [Minimum Data Set] [employer] Phone: Oxygen therapy [Minimum Data Set] Initiate Oxygen Therapy Protocol Respiratory Care Routine Daily until discontinued starting 06/30/2022 [employer] Phone: Comment on above: Daily until disconti nued starting 06/30/2022 Oxygen therapy [Minimum Data Set] Initiate Oxygen Therapy Protocol Respiratory Care Routine As Needed until discontinued starting 07/02/2022 [facility] [email or web address] Phone: Comment on above: As Needed until disc ontinued starting 07/02/2022 Patient Education [facility] Work Phone: Patient referral [facility] Work Phone: End: 06-29-2022 POCT POTASSIUM [facility] addwishCHANDRA mangof[employer] [facility] Work Phone: End: 06-30-2022 POCT POTASSIUM POCT POTASSIUM Point of Care Testing Routine One Time for 1 Occurrences starting 06/30/2022 until 06/30/2022 [facility] [email or web address] Phone: Comment on above: One Time for 1 Occur rences starting 06/30/2022 until 06/30/2022 Spirometry panel Incentive adrianna metry Respiratory Care Routine As Needed until discontinued starting 06/04/2022 [facility] [email or web address] Phone: Comment on above: As Needed until disc ontinued starting 06/04/2022 Spirometry panel Incentive adrianna metry Respiratory Care Routine As Needed until discontinued starting 06/30/2022 [facility] [email or web address] Phone: Comment on above: As Needed until disc ontinued starting 06/30/2022 Stone Analysis [employer] [facility] [employer] Work Phone: Immunizations Immunization Date Immunization Notes Care Provider Fa [facility] 02-09-2023 influenza, injectabl e, quadrivalent, preservative free [facility] Payers Date Payer Category Payer [facility] [id number] 2022 Unknown BCBS BCBS [id number] 2022-Present [phone] [address] [place] [address] [id number]. [id number] 2022 Self-pay 2022 Medicaid [id number] [id number]. [id number] 1962 Unknown [id number] 2.16.840.1.021112.3.579.2.17 5 1962 Unknown [id number] 2.16.840.1.285519.3.579.2.17 5 1962 Unknown [id number] 2.16.840.1.306300.3.579.2.17 5 1962 Unknown [id number] 2.16.840.1.116802.3.579.2.59 3 1962 Unknown [id number] 2.16.840.1.735364.3.579.2.59 3 1962 Unknown [id number] 2.16.840.1.214171.3.579.2.59 3 1962 Unknown [id number] 2.16.840.1.307427.3.579.2.59 3 1962 Unknown [id number] 2.16.840.1.796172.3.579.2.59 3 1962 Unknown [id number] 2.16.840.1.120236.3.579.2.59 3 1962 Unknown [id number] 2.16.840.1.010926.3.579.2.59 3 1962 Unknown [id number] 2.16.840.1.965558.3.579.2.59 3 1962 Unknown [id number] 2.16.840.1.140208.3.579.2.59 3 1962 Unknown [id number] 2.16.840.1.096443.3.579.2.59 3 1962 Unknown [id number] 2.16.840.1.549903.3.579.2.59 3 1962 Unknown [id number] 2.16.840.1.141420.3.579.2.17 3 1962 Unknown [id number] 2.16.840.1.991205.3.579.2.17 6 1962 Unknown [id number] 2.16.840.1.416916.3.579.2.17 6 1962 Unknown [id number] 2.16.840.1.808559.3.579.2.17 6 1962 Unknown [id number] 2.16.840.1.192891.3.579.2.12 59 1962 Unknown [id number] 2.16.840.1.713044.3.579.2.12 59 1962 Unknown [id number] 2.16.840.1.028160.3.579.2.12 59 1962 Unknown [id number] 2.16.840.1.495628.3.579.2.12 59 1962 Unknown [id number] 2.16.840.1.104618.3.579.2.12 59 1962 Unknown [id number] 2.16.840.1.090433.3.579.2.12 59 1962 Unknown [id number] 2.16.840.1.731866.3.579.2.12 59 1962 Unknown [id number] 2.16.840.1.119875.3.579.2.12 59 1962 Unknown [id number] 2.16.840.1.702701.3.579.2.12 59 1962 Unknown [id number] 2.16.840.1.139588.3.579.2.12 59 1962 Unknown [id number] 2.16.840.1.434440.3.579.2.12 59 1962 Unknown [id number] 2.16.840.1.250488.3.579.2.12 59 1962 Unknown [id number] 2.16.840.1.296823.3.579.2.12 59 1959 Unknown [id number] Unknown [id number] Unknown [id number] 2.16.840.1.645439.3.579.2.53 1 Unknown [id number] 2.16.840.1.575855.3.579.2.53 1 Unknown [id number] 2.16.840.1.961415.3.579.2.53 1 Unknown [id number] 2.16.840.1.609642.3.579.2.53 1 Social History Date Type Detail Facility Start: 05-29-2022 End: 08-31-2022 Tobacco smoking status MDIS Never smoked tobacco [email or web address] Start: 05-29-2022 End: 08-31-2022 Tobacco use and exposure Smokeless tobacco non-user [employer] Phone: Start: 05-31-2022 End: 09-08-2022 Alcohol intake Current drinker of alcohol (finding) [employer] Phone: Start: 05-28-2022 History SDOH Alcohol Frequency 2 [employer] Phone: Start: 05-29-2022 Alcohol Comment less than 6 beers annually [employer] Phone: Start: 1960 Sex Assigned At Not on file [employer] Phone: Start: 05-18-2022 End: 07-02-2022 Exposure to SARS-CoV-2 (event) Not sure [employer] Phone: Start: 01-04-2023 End: 03-22-2023 Sex Assigned At [employer] [facility] Start: 1960 Sex Assigned At Male [facility] Start: 05-17-2023 Alcohol intake Ex-drinker (finding) [facility] Start: 01-04-2023 End: 03-22-2023 History of Social function [facility] Within the last year , have you been afraid of your partner or ex-partner? No [facility] Are you now , , , , never or living with a partner? [facility] How often to you hav e a drink containing alcohol? Monthly or less [facility] How many standard dr inks containing alcohol do you have on a typical day? 1 or 2 [facility] How often do you hav e 6 or more drinks on 1 occasion? Never [facility] How hard is it for y ou to pay for the very basics like food, housing, medical care, and heating Not very hard [facility] Do you feel stress - tense, restless, nervous, or anxious, or unable to sleep at night because your mind is troubled all the time - these days [OSQ] Only a little [facility] (I/We) worried wheth er (my/our) food would run out before (I/we) got money to buy more. Never true [facility] In the past 12 month s, has lack of transportation kept you from medical appointments or from getting medications? No [facility] Start: 04-18-2023 Alcohol Comment no caffiene; Caffeine Intake: More than 4 cups per day soda [facility] Start: 08-31-2022 Gender identity Identifies as male gender (finding) [facility] Start: 08-31-2022 Sexual orientation Choose not to disclose [facility] Medical Equipment Procedure Code Equipment Code Equipment Origin al Text Equipment Identifier Dates [id number] Start: 05-28-2022 [id number] Start: 06-29-2022 Use one needle f or each insulin injection [id number] Start: 07-08-2022 USE DIRECTED THREE TIMES A DAY [id number] Start: 07-07-2022 OneTouch Verio t est strip [id number] Start: 03-15-2023 1 (one) time eac h day. [id number] Start: 07-08-2022 Inject under the skin 2 (two) times a day [id number] Start: 05-18-2023 Goals Date Patient Goal Desired Activity /State Functional Status Date Assessment Result Facility 02-13-2023 Functional status Patient at Baseline [facility] Work Phone: Mental Status Date Assessment Result Facility 02-13-2023 Cognitive function Cognitive Sta tus Patient at Baseline [facility] Work Phone: Clinical Notes 06-04-2022 to 07-19-2023 Lexis Keen, PHYSICAL THERAPIST-PILE DRIVER OPERATOR [employer] [facility] - 05/17/2023 4:00 PM ESTLorjesica Stout, PASSEMENTERIE WORKER - 05/17/2023 4:00 PM EST Note Date & Type Note Facility 07-19-2023 Note Cardiovascular Medic ine [facility] SUBJECTIVE No chief complaint on file. Steven Walden is a 63 y.o. male here for follow-up. HPI PMHx: LAD myocardial bridging by cath in 2017, hypertension, CKD on dialysis. SHADE wears CPAP, PAD, leg cellulitis treated by vascular surgery 07/16/2023 No longer on dialysis. He follows with nephrology, Dr. Ruiz from [facility]. He is having issues with debilitating anxiety. His medications have been adjusted. He is pending intitiation of bogdan for his TD side effects from his medications. Denies cardiac complaints besides palpitations which occur with anxiety. 08/09/2022 Steven Walden is a 62 y.o. year old male hypertension, CKD on dialysis, type II diabetes, LAD myocardial bridging, obstructive sleep apnea, peripheral artery disease, and lower extremity cellulitis seen in follow-up. He was last seen by Deangelo Montana CNP in May 2021. He was recently started on dialysis, about a month ago and is following with nephrology in [place]. He has since developed more pronounced lightheadedness especially following dialysis. He had a syncopal event about a month ago and was hospitalized at [facility] where he had a normal carotid duplex. He has continued to experience postural lightheadedness without recurrent syncope. He denies chest pain, palpitations, or dyspnea on exertion. Patient Active Problem List Diagnosis Finger injury, right, initial encounter Acute kidney injury superimposed on CKD (CMS/HCC) Adjustment disorder with depressed mood DAISY (acute kidney injury) ([facility]) Anxiety Atrophy of right kidney Bandemia Chest pain Chronic gouty arthritis Constipation Urinary tract obstruction by kidney stone Tremor Syncope Stage 3 chronic kidney disease ([facility]) Pyelonephritis of left kidney Pure hyperglyceridemia Primary gout Polyneuropathy due to type 2 diabetes mellitus ([facility]) Primary hypertension Orthostatic hypotension Obstructive sleep apnea syndrome Obesity Mononeuropathy of lower extremity Moderate major depression, single episode ([facility]) Migraine without aura, not refractory Metabolic acidosis Major depressive disorder, recurrent, moderate ([facility]) 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 ([facility]) Left ureteral stone Hyponatremia Hyperlipidemia History of hydronephrosis History of anemia of chronic disease BRITTANY (generalized anxiety disorder) ESRD (end stage renal disease) ([facility]) Emphysematous cystitis Edema Dyspnea Dizziness Duodenal ulcer Disorder of nervous system due to type 2 diabetes mellitus ([facility]) Diabetic neuropathic arthropathy ([facility]) Diabetes mellitus type 2 in obese Diabetes mellitus ([facility]) Dependent on hemodialysis ([facility]) Debility Coronary-myocardial bridge Lymphedema Diabetes mellitus due to underlying condition, uncontrolled, with hyperglycemia ([facility]) Class 3 severe obesity due to excess calories with body mass index (BMI) of 40.0 to 44.9 in adult ([facility]) Peripheral vascular disease ([facility]) Acute cystitis without hematuria Acute respiratory alkalosis Benign prostatic hyperplasia Confusion Diabetic renal disease ([facility]) Hyperventilation Insomnia Microalbuminuric diabetic nephropathy ([facility]) Migraine headache Nephrosclerosis Panic attack Poorly controlled diabetes mellitus ([facility]) Screening PSA (prostate specific antigen) UTI (urinary tract infection) Past Medical History: Diagnosis Date Asthma Depression Diabetic acidosis, type II ([facility] Kidney disease Neuropathy Sleep apnea Family History Family history unknown: Yes Social History Tobacco Use Smoking status: Never Smokeless tobacco: Never Vaping Use Vaping Use: Never used Substance Use Topics Alcohol use: Never Drug use: Never No Known Allergies Review of Systems Constitutional: Positive for malaise/fatigue. Negative for chills, decreased appetite, fever and weight gain. Cardiovascular: Positive for palpitations. Negative for chest pain, dyspnea on exertion, irregular heartbeat, leg swelling, near-syncope, orthopnea, paroxysmal nocturnal dyspnea and syncope. Hematologic/Lymphatic: Negative for bleeding problem. Does not bruise/bleed easily. Psychiatric/Behavioral: The patient is nervous/anxious. OBJECTIVE Visit Vitals Ht 1.905 m (6' 3 ) Wt 129 kg (285 lb) BMI 35.62 kg/m??? Smoking Status Never BSA 2.61 m??? Medications: Current Outpatient Medications: allopurinol (Zyloprim) 100 mg tablet, Take 1 tablet twice a day by oral route., Disp: , Rfl: folic acid (Folvite) 1 mg tablet, TAKE 1 TABLET BY MOUTH ONCE DAILY FOR 90 DAYS, Disp: , Rfl: furosemide (Lasix) 40 mg tablet, Take 40 mg by mouth in the morning., Disp: , Rfl: midodrine (Proamatine) 2.5 mg tablet, Take 2 tablets (5 mg) by mouth with breakfast, with lunch, and with evening meal. Will take 2 tablets if SBP seated 1 (more content not included)... [facility] 07-19-2023 Note Patient here for 1 y ear follow up orthostatic hypotension, hypertension, and syncope. He's also here to discuss starting a psych medication called Ingrezza. He is no longer on dialysis. Denies chest pain, palpitations, and recurrent syncope. Gets SOB with anxiety and activity. Review of Systems Cardiovascular: Positive for dyspnea on exertion. Respiratory: Positive for snoring. Psychiatric/Behavioral: The patient is nervous/anxious. All other systems reviewed and are negative. [facility] 05-17-2023 History of Present illness Narrative HPI Patient is here with his for med management. He appears to have decompensated. He was hyperventilating when he came in today. As visits extended he would hyperventilate. Depression Rates 7 (10worst). Anxiety 8 (10worst). Found out long hx of social anxiety. Movements in upper extremities. Has fallen twice at home. Gait is unsteady. Speech is distorted and this has worsened. Holding is head. He takes klonopin to complete appts with doctors. Saw Dr Low 04/19/23. Called 11th and seemed to be getting worse and informed MD. Primodone was increased by Neurologist. states he is worse since. He is crying out, moaning out loud, looking down at floor. Patient knows month and year. Trouble with finishing sentences. He has severe social anxiety. Denies suicidal thoughts. Passive thoughts of not wanting to be around. Sleeping 6-8 hours. Showering 2x week. Poor ADL's. Last few days slept pretty good 8 hours. Appetite is fair. Patient is taking cogentin for movements. The hand movements and jaw are worse today. Also having Lip movements. continues to hyperventilate. AIMS completed. [place] a counselor [place] [facility] [place] he was unable to talk. No appt was ever made for follow up. is setting up his medications. Denies thoughts of self harm. No plan or intent. Medication compliant. is managing his medications. Patient is not aware of his medications. No reported side effects. Denies abuse of substances. C/o of short term memory issues, losing words in middle of sentence. Psychosocial stressors -Current mental status. Finances afraid to go to hospital for rear of cost. Note: Austedo was not started for movements as when consulted with PCP -determined med would be contraindicated with patient who has cardiac hx. Mental Status Exam APPEARANCE: dissheveled, body odor. Tall stature and wt. ABNORMAL BODY MOVEMENTS: see hpi AFFECT: blunted/poor eye contact AGGRESSION:no agggression . ANGER CONTROL:In control. ATTENTION: poor ATTITUDE:cooperative. CURRENT HOMICIDALITY:none. CURRENT SUICIDALITY:Denies thoughts of self harm No history of self harm . DEGREE OF AWARENESS OF SURROUNDINGS:within normal limits. IMPULSE CONTROL:good. INSIGHT: fair INTELLIGENCE (estimate): below average JUDGEMENT: fair MOOD: depressed and anxious ORIENTATION:yes Time: Place: Person:. PERCEPTUAL DISORDERS: no perceptual disorder noted. PSYCHOMOTOR ACTIVITY: AIMS SEXUAL IMPULSE CONTROL:good. SPEECH:garbled, moaning THOUGHT CONTENT: unremarkable. THOUGHT PROCESS:thought blocking' ASSESSMENT MDD - r/o Dysthymia Anxiety Panic attacks. Involuntary movements TREATMENT PLAN Klonopin .5mg bid-prn anxiety Patient feels works better than ativan. Originally ordered by PCP. Lamotrigine 200mg daily off label prevent depression Cogentin 1.0 mg in am 1mg at hs -movements zoloft to 150mg daily Remeron 45mg at hs -target sleep To attend counseling- [facility]-has not been able to meet with phone. Continue to follow F/U with neuro Recommending [facility]-report was called to there ER by Efraín Stout., Allyson or Danielle Espinoza. Since Med resistant and having adverse medication effects. Patient may be a good candidate for ECT or Spravato. FOLLOW UP: 3weeks Suggested ambulance both patient and refused. Face to face with patient and ./documentation/review of record= 60min Since increase on Primidone to 300mg daily from Dr. Low he has worsened with movements in the mouth, vocalization has changed, memory, gait, and making noises. Umm reports he has fallen 2 times, denies injuries.. Taking Klonopin nightly. Reports hand tremors have improved but still having some movements. Breathing has a slowed down. This current state is pretty much all day. documented in this encounter [facility] 02-08-2023 Hospital Discharge instructions Additional Instructions As we discussed, your [...] looking at your CAT scan reports from [employer]. This seems to be unchanged from the past. The left side shows no stones. [facility] Work Phone: 12-21-2022 Evaluation note Encounter Date Diagnosis Assessment Notes Dec, CKD (chronic kidney disease), stage IV (ICD-10 - N18.4) Patient has CKD likely from right atrophic kidney addition to possibly diabetes and obstructive nephropathy.[facility] creatinine is 2.6 with GFR 25 mm/minI [...] at 7.0. Will start folic acid supplement [employer] Other 06-16-2023 Yeni Walden is a pleasant 62 year old referred to Dr Glenroy Green and the Syncope [facility] Autonomic Disorders [facility] in the [facility] at the [facility] for an evaluation of neurogenic orthostatic [...] Neuropathy feet/ diabetes. Evaluated by Ruthie Devine 911 EMERGENCY DISPATCHER, started midodrine, stopped metoprolol and helpful. Chief [...] hypertension. Gentle recumbent reconditioning (bike, stationary pedal assembler insulator) will help strengthen skeletal muscle support and referral to PT is helpful (more content not included)... [facility] History of Present illness Narrative* Jessenia Lawrence RN - 09/08/2022 11:51 AM EDT Received to recovery per cart. Vital signs stable. No drainage noted to dressing. Discharge instructions reviewed with patient, voices understanding. Padded tegaderms sent with patient, directions given on how and when to change dressing. Dressed for home. Ambulates off department unaided, all belongings sent with patient. documented in this encounter[facility] [email or web address] Phone: 1(685) 273-438905-31-2023 Hospital Discharge instructions* Discharge Instructions* Jessenia Lawrence [...] bleeding or chest pain. documented in this encounterBON [employer] Work Phone: [phone]) 634-786205-01-2023 NotePt is here today for hypertension possible heart related issue. Review of Systems Constitutional: Positive for weight loss. Respiratory: Positive for snoring. All other systems reviewed and are negative.[facility] 08-09-2022 NoteCardiology Clinic Note Subjective Steven Walden is a 62 y.o. year old male hypertension, CKD on dialysis, type II diabetes, LAD myocardial bridging, obstructive sleep apnea, peripheral artery disease, and lower extremity cellulitis seen in follow-up. He was last seen by Daengelo Montana CNP in May 2021. He was recently started on dialysis, about a month ago and is following with nephrology in [place]. He has since developed more pronounced lightheadedness especially following dialysis. He had a syncopal event about a month ago and was hospitalized at [facility] where he had a normal carotid duplex. He has continued to experience postural lightheadedness without recurrent syncope. He denies chest pain, palpitations, or dyspnea on exertion. Patient Active Problem List Diagnosis Finger injury, right, initial encounter Acute kidney injury superimposed on CKD ([facility]) Adjustment disorder with depressed mood DAISY (acute kidney injury) ([facility]) Anxiety Atrophy of right kidney Bandemia Chest pain Chronic gouty arthritis Constipation Urinary tract obstruction by kidney stone Tremor Syncope Stage 3 chronic kidney disease ([facility]) Pyelonephritis of left kidney Pure hyperglyceridemia Primary gout Polyneuropathy due to type 2 diabetes mellitus ([facility]) Primary hypertension Orthostatic hypotension Obstructive sleep apnea syndrome Obesity Mononeuropathy of lower extremity Moderate major depression, single episode ([facility]) Migraine without aura, not refractory Metabolic acidosis Major depressive disorder, recurrent, moderate ([facility]) Major depression residential current use of insulin ([facility]) Left ureteral stone Hyponatremia Hyperlipidemia History of hydronephrosis History of anemia of chronic disease BRITTANY (generalized anxiety disorder) ESRD (end stage renal disease) ([facility]) Emphysematous cystitis Edema Dyspnea Dizziness Duodenal ulcer Disorder of nervous system due to type 2 diabetes mellitus ([facility]) Diabetic neuropathic arthropathy ([facility]) Diabetes mellitus type 2 in obese ([facility]) Diabetes mellitus ([facility]) Dependent on hemodialysis ([facility]) Debility Coronary-myocardial bridge Lymphedema Diabetes mellitus due to underlying condition, uncontrolled, with hyperglycemia ([facility]) Class 3 severe obesity due to excess calories with body mass index (BMI) of 40.0 to 44.9 in adult ([facility]) Peripheral vascular disease ([facility]) Family History Family history unknown: Yes Social [...] , Rfl: metoprolol tartra (more content not included)...[facility] History of Present illness Narrative* Ernestina Steve LPN - 07/08/2022 1:01 PM EDT Patient discharged from facility. Franchise Sales Director reviewed discharge orders with patient and family member. All questions and concern addressed. Patient left with medication from pharmacy, patient to picking tech walker. All belongings packed with patient. Patient [...] 100mg Omeprazole 40mg Lantus Solostar 100unit/ml Pen [place] [id number] Additional Documentation: Delivered Medication to Patients Room * Ernestina Steve LPN - 07/08/2022 7:06 AM EDT Images from the original note were not included. ACUTE INPATIENT REHABILITATION DISCHARGE [facility] Patient Name: Steven Walden Patient discharged in [...] with patient as mentioned on AVS. Patient/responsible alliance party verbalize understanding of discharge plan and are in agreement with goal/plan/treatment preferences. Belongings including Glasses, Tshirt,Pants, Cellphone, Grey Percher, sent with patient/responsible alliance party. Home medications sent home with patient/responsible alliance party yes Car Transfer Level of assistance required [...] []Peripheral []Midline [] (PICC, tunneled, port) * Sondra Dias OT - 07/07/2022 3:41 PM EDT [facility] Occupational Therapy Daily Treatment Note Date: 07/07/22 Patient Name: Steven Walden Room: 2632/2632-01 Account: [id number] : 1960 (62 y.o.) Gender: male Referring [...] on L from 44 to 36. improved service agent strength on R from 44 to 67 [...] and mobility/met Short Term Goal 7: - Penitentiary Goals Time Frame for Cleaning Professional Goals : By discharge Penitentiary Goal 1: Pt will perform BADLs mod I, using appropriate adaptive techniques/equipment, andGood safety/met Cleaning Professional Goal 2: Pt will perform functional transfers/mobility, using least restrictive device, mod I and Good safety/met Penitentiary Goal 3: Pt will tolerate standing for 10+ minutes, participating in dynamic standing and reaching as tolerated, during self care/functional activity of choice/met Cleaning Professional Goal 4: Pt will V/D use of energy conservation/work simplification techniques to increaseIND during daily routine/met Cleaning Professional Goal 5: Pt will V/D at least three fall prevention/home safety modifications that are applicable to his daily routine and home environment/met Cleaning Professional Goal 6: Pt will improve opening small containers during self-care tasks as evidenced by 5seconds improvement on 9 hole peg test and 5# improvement of service agent strength/met pt improved RUE coordination from 43 to 31 and on L from 44 to 36. improved service agent strength on R from 44 to 67 and on L from 47 to 69. Penitentiary Goal 7: Pt will perform light housekeeping/simple meal preparation with supervision, using adaptive techniques as needed, and Good safety/ met and surpassed- mod indep. Plan Occupational Therapy Plan Times Per Week: 900 minutes between OT/PT/ASSEMBLER SURGICAL GARMENT Current Treatment Recommendations: Strengthening, Balance training, ROM, [...] Time Out: 1332 Minutes: 30 * Lisset Lockett RD, LD - 07/07/2022 1:01 PM EDT Comprehensive [...] Anthropometric Measures: Height: 6' 5 (195.6 cm) [place] Body Weight (IBW): 208 lbs (95 kg) [...] Used for Energy Requirements: Admission Energy (kcal/day): 7296-3741 based on [place] with 1-1.1 factor Weight Used for Protein Requirements: [place] Protein (g/day): 124-133 basee on 1.3-1.4 gm [...] guard assistance Toileting Skilled Clinical Factors: Per PASSEMENTERIE WORKER report- pt able to manage clothing, CGA [...] Contact guard assistance Toilet Transfers Comments: Per PASSEMENTERIE WORKER report Speech Therapy Current Medications: Current Facility-Administered [...] 3B, previous follow-up with nephrology in the [facility] and had not seen his hris administrator in the last 6 years, with unknown baseline creatinine, chronic lower extremity edema, morbid obesity (BMI 41.5), essential hypertension, remote history of nephrolithiasis. He was recently discharged from [facility] 06/30/2022 after initially presenting on 06/20/2022 with [...] Prognosis is guarded. Aleena Luis MD Attending Box Blank Machine Feeder * Alejandro Rios MD - 07/06/2022 4:06 [...] 3B, previous follow-up with nephrology in the [facility] and had not seen his hris administrator in the last 6 years, withunknown baseline creatinine, chronic lower extremity edema, morbid obesity (BMI 41.5), essential hypertension, remote history of nephrolithiasis. He was recently discharged from [facility] 06/30/2022 after initially presenting on 06/20/2022 with [...] DILATION performed by Kevin Myles MD at [facility] OR CYSTOSCOPY Left 06/29/2022 CYSTOSCOPY, URETEROSCOPY, LEFT STENT REMOVAL, STONE BASKETING (Left) CYSTOSTOMY W/ STENT INSERTION Left 06/29/2022 Stent exchange HAND SURGERY Right 12/2021 IR TUNNELED CATHETER PLACEMENT GREATER THAN 5 YEARS 06/28/2022 IR TUNNELED CATHETER PLACEMENT GREATER THAN 5 YEARS 06/28/2022 Gillian Batista MD [facility] SPECIAL PROCEDURES URETER SURGERY Left 06/29/2022 CYSTOSCOPY, URETEROSCOPY, LEFT STENT REMOVAL, STONE BASKETING performed by Kevin Myles MD at [facility] OR Current Medications: heparin (porcine) injection 2,500 [...] Heparin for DVT prophylaxis. Alejandro Rios MD Box Blank Machine Feeder * Ada Vizcarra, OT - 07/06/2022 3:35 PM EDT Occupational Therapy [facility] Occupational Therapy Daily Treatment Note Date: 07/06/22 Patient Name: Steven Walden Room: 2632/2632-01 Account: [id number] : 1960 (62 y.o.) Gender: male Referring [...] strength/endurance needed for ADLs/IADLs. Resistive Exercises: AM: Franchise Sales Director provided pt with handout/HEP on hand strengthening [...] devices: (left pt in therapy gym with RAT CULTURIST Joelle) Restraints Initially in place: No Goals [...] and mobility Short Term Goal 7: - Cleaning Professional Goals Time Frame for Cleaning Professional Goals : By discharge Penitentiary Goal 1: Pt will perform BADLs mod I, using appropriate adaptive techniques/equipment, andGood safety Cleaning Professional Goal 2: Pt will perform functional transfers/mobility, using least restrictive device, mod I and Good safety Penitentiary Goal 3: Pt will tolerate standing for 10+ minutes, participating in dynamic standing and reaching as tolerated, during self care/functional activity of choice Penitentiary Goal 4: Pt will V/D use of energy conservation/work simplification techniques to increaseIND during daily routine Penitentiary Goal 5: Pt will V/D at least three fall prevention/home safety modifications that are applicable to his daily routine and home environment Penitentiary Goal 6: Pt will improve opening small containers during self-care tasks as evidenced by 5seconds improvement on 9 hole peg test and 5# improvement of service agent strength Penitentiary Goal 7: Pt will perform light housekeeping/simple meal preparation with supervision, using adaptive techniques as needed, and Good safety Plan Occupational Therapy Plan Times Per Week: 900 minutes between OT/PT/ASSEMBLER SURGICAL GARMENT Current Treatment Recommendations: Strengthening, Balance training, ROM, [...] guard assistance Toileting Skilled Clinical Factors: Per PASSEMENTERIE WORKER report- pt able to manage clothing, CGA [...] Contact guard assistance Toilet Transfers Comments: Per PASSEMENTERIE WORKER report Speech Therapy Current Medications: Current Facility-Administered [...] gait, upper body weakness, and inability to picking tech an ambulation device; and he can ambulate [...] 3B, previous follow-up with nephrology in the [facility] and had not seen his hris administrator in the last 6 years, withunknown baseline creatinine, chronic lower extremity edema, morbid obesity (BMI 41.5), essential hypertension, remote history of nephrolithiasis. He was recently discharged from [facility] 06/30/2022 after initially presenting on 06/20/2022 with [...] DILATION performed by Kevin Myles MD at [facility] OR CYSTOSCOPY Left 06/29/2022 CYSTOSCOPY, URETEROSCOPY, LEFT STENT REMOVAL, STONE BASKETING (Left) CYSTOSTOMY W/ STENT INSERTION Left 06/29/2022 Stent exchange HAND SURGERY Right 12/2021 IR TUNNELED CATHETER PLACEMENT GREATER THAN 5 YEARS 06/28/2022 IR TUNNELED CATHETER PLACEMENT GREATER THAN 5 YEARS 06/28/2022 Gillian Batista MD [facility] SPECIAL PROCEDURES URETER SURGERY Left 06/29/2022 CYSTOSCOPY, URETEROSCOPY, LEFT STENT REMOVAL, STONE BASKETING performed by Kevin Myles MD at [facility] OR Current Medications: fluticasone (FLONASE) 50 MCG/ACT [...] Heparin for DVT prophylaxis. Alejandro Rios MD Box Blank Machine Feeder * Janet Emmanuel PTA - 07/05/2022 4:04 PM EDT Physical Therapy Facility/Department: [facility] Rehabilitation Physical Therapy Daily Treatment [...] cefepime with dialysis until 07/02/22. [facility] Family / Caregiver Present: No [...] of the rollator fitting throughout his house. Franchise Sales Director edu/encouraged his to ask his family to [...] nustep for increased endurance and speed, BUE/LE Penitentiary Goals Time Frame for Penitentiary Goals : by D/C Cleaning Professional Goal 1: Pt to demo IND transfers from varied surface heights. Penitentiary Goal 2: Pt to amb 200' with least restrictive device on varied surfaces, MOD I Cleaning Professional Goal 3: Pt to ascend/descend at least 8 stairs per home entry, SBA. Cleaning Professional Goal 4: Pt to score at least a 24 on Tinetti to improve standing balance to GOOD and reduce risk of falls for safe D/C. Penitentiary Goal 5: pt to improve BLE strength by 1/2 MMG. 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 domestic freight forwarder goal 7: Pt to improve 5xSTS to [...] 1102 1400 Minutes 53 25 Janet Emmanuel PTA, 07/05/22 at 4:04 PM * SANCHEZ Ramey - 07/05/2022 3:45 PM EDT [facility] Occupational Therapy Daily Treatment Note Date: 07/05/22 Patient Name: Steven Walden Room: 2632/2632-01 Account: [id number] : 1960 (62 y.o.) Gender: male Referring [...] home environment to engage in ADLs safely Penitentiary Goals Time Frame for Cleaning Professional Goals : By discharge Penitentiary Goal 1: Pt will perform BADLs mod I, using appropriate adaptive techniques/equipment, andGood safety Cleaning Professional Goal 2: Pt will perform functional transfers/mobility, using least restrictive device, mod I and Good safety Cleaning Professional Goal 3: Pt will tolerate standing for 10+ minutes, participating in dynamic standing and reaching as tolerated, during self care/functional activity of choice Cleaning Professional Goal 4: Pt will V/D use of energy conservation/work simplification techniques to increaseIND during daily routine Penitentiary Goal 5: Pt will V/D at least three fall prevention/home safety modifications that are applicable to his daily routine and home environment Penitentiary Goal 6: Pt will improve opening small containers during self-care tasks as evidenced by 5seconds improvement on 9 hole peg test and 5# improvement of service agent strength Cleaning Professional Goal 7: Pt will perform light housekeeping/simple meal preparation with supervision, using adaptive techniques as needed, and Good safety Plan Occupational Therapy Plan Times Per Week: 900 minutes between OT/PT/ASSEMBLER SURGICAL GARMENT Current Treatment Recommendations: Strengthening, Balance training, ROM, [...] guard assistance Toileting Skilled Clinical Factors: Per PASSEMENTERIE WORKER report- pt able to manage clothing, CGA [...] Contact guard assistance Toilet Transfers Comments: Per PASSEMENTERIE WORKER report Speech Therapy Current Medications: Current Facility-Administered [...] MWF hemodialysis schedule as outpatient * Ada Vizcarra OT - 07/05/2022 10:25 AM EDT Occupational Therapy [facility] Occupational Therapy Daily Treatment Note Date: 07/05/22 Patient Name: Steven Walden Room: 2632/2632-01 Account: [id number] : 1960 (62 y.o.) Gender: male Referring [...] break after. Activity done to promote functional service agent strength in B hands needed for increased [...] of devices: (left pt in gym with RAT CULTURIST Sofiya) Goals Patient Goals Patient goals : [...] home environment to engage in ADLs safely Penitentiary Goals Time Frame for Penitentiary Goals : By discharge Penitentiary Goal 1: Pt will perform BADLs mod I, using appropriate adaptive techniques/equipment, andGood safety Penitentiary Goal 2: Pt will perform functional transfers/mobility, using least restrictive device, mod I and Good safety Cleaning Professional Goal 3: Pt will tolerate standing for 10+ minutes, participating in dynamic standing and reaching as tolerated, during self care/functional activity of choice Cleaning Professional Goal 4: Pt will V/D use of energy conservation/work simplification techniques to increaseIND during daily routine Cleaning Professional Goal 5: Pt will V/D at least three fall prevention/home safety modifications that are applicable to his daily routine and home environment Cleaning Professional Goal 6: Pt will improve opening small containers during self-care tasks as evidenced by 5seconds improvement on 9 hole peg test and 5# improvement of service agent strength Penitentiary Goal 7: Pt will perform light housekeeping/simple meal preparation with supervision, using adaptive techniques as needed, and Good safety Plan Occupational Therapy Plan Times Per Week: 900 minutes between OT/PT/ASSEMBLER SURGICAL GARMENT Current Treatment Recommendations: Strengthening, Balance training, ROM, Functional mobility training, Endurance training, Safety education & training, Equipment evaluation, education, & procurement, Patient/Caregiver education & training, Self-Care / ADL, Positioning, Home management training, Coordination training, Pain management OT Individual Minutes OT Individual Minutes Time In: 902 Time Out: 59 Minutes: 56 Time Code Minutes Timed Code Treatment Minutes: 56 Minutes * Ada Vizcarra OT - 07/04/2022 3:33 PM EDT Occupational Therapy [facility] Occupational Therapy Daily Treatment Note Date: 07/04/22 Patient Name: Steven Walden Room: 2632/2632-01 Account: [id number] : 1960 (62 y.o.) Gender: male Referring [...] requests to play game of checkers with promotion writer, and standsat table top surface with [...] home environment to engage in ADLs safely Penitentiary Goals Time Frame for Cleaning Professional Goals : By discharge Penitentiary Goal 1: Pt will perform BADLs mod I, using appropriate adaptive techniques/equipment, andGood safety Cleaning Professional Goal 2: Pt will perform functional transfers/mobility, using least restrictive device, mod I and Good safety Cleaning Professional Goal 3: Pt will tolerate standing for 10+ minutes, participating in dynamic standing and reaching as tolerated, during self care/functional activity of choice Cleaning Professional Goal 4: Pt will V/D use of energy conservation/work simplification techniques to increaseIND during daily routine Cleaning Professional Goal 5: Pt will V/D at least three fall prevention/home safety modifications that are applicable to his daily routine and home environment Cleaning Professional Goal 6: Pt will improve opening small containers during self-care tasks as evidenced by 5seconds improvement on 9 hole peg test and 5# improvement of service agent strength Cleaning Professional Goal 7: Pt will perform light housekeeping/simple meal preparation with supervision, using adaptive techniques as needed, and Good safety Plan Occupational Therapy Plan Times Per Week: 900 minutes between OT/PT/ASSEMBLER SURGICAL GARMENT Current Treatment Recommendations: Strengthening, Balance training, ROM, [...] guard assistance Toileting Skilled Clinical Factors: Per PASSEMENTERIE WORKER report- pt able to manage clothing, CGA [...] Contact guard assistance Toilet Transfers Comments: Per PASSEMENTERIE WORKER report Speech Therapy Current Medications: Current Facility-Administered [...] Explain if orders NOT met, was physician notified:na ACES flowsheet faxed to patient unit/ placed [...] 07/03/2022 4:00 PM EDT Physical Therapy Facility/Department: [facility] Rehabilitation Physical Therapy Daily Treatment [...] cefepime with dialysis until 07/02/22. [facility] Family / Caregiver Present: No [...] nustep for increased endurance and speed, BUE/LE Cleaning Professional Goals Time Frame for Cleaning Professional Goals : by D/C Penitentiary Goal 1: Pt to demo IND transfers from varied surface heights. Cleaning Professional Goal 2: Pt to amb 200' with least restrictive device on varied surfaces, MOD I Cleaning Professional Goal 3: Pt to ascend/descend at least 8 stairs per home entry, SBA. Cleaning Professional Goal 4: Pt to score at least a 24 on Tinetti to improve standing balance to GOOD and reduce risk of falls for safe D/C. Cleaning Professional Goal 5: pt to improve BLE strength by 1/2 MMG. 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 domestic freight forwarder goal 7: Pt to improve 5xSTS to [...] 1100 1404 Minutes 53 22 Janet Emmanuel, RAT CULTURIST, 07/03/22 at 4:00 PM * Ada Vizcarra, OT - 07/03/2022 3:34 PM EDT Occupational Therapy [facility] Occupational Therapy Daily Treatment Note Date: 07/03/22 Patient Name: Steven Wadlen Room: 2632/2632-01 Account: [id number] : 1960 (62 y.o.) Gender: male Referring [...] of devices: (left pt in gym with RAT CULTURIST Sofiya present) Restraints Initially in place: No [...] home environment to engage in ADLs safely Cleaning Professional Goals Time Frame for Penitentiary Goals : By discharge Penitentiary Goal 1: Pt will perform BADLs mod I, using appropriate adaptive techniques/equipment, andGood safety Cleaning Professional Goal 2: Pt will perform functional transfers/mobility, using least restrictive device, mod I and Good safety Penitentiary Goal 3: Pt will tolerate standing for 10+ minutes, participating in dynamic standing and reaching as tolerated, during self care/functional activity of choice Penitentiary Goal 4: Pt will V/D use of energy conservation/work simplification techniques to increaseIND during daily routine Penitentiary Goal 5: Pt will V/D at least three fall prevention/home safety modifications that are applicable to his daily routine and home environment Cleaning Professional Goal 6: Pt will improve opening small containers during self-care tasks as evidenced by 5seconds improvement on 9 hole peg test and 5# improvement of service agent strength Penitentiary Goal 7: Pt will perform light housekeeping/simple meal preparation with supervision, using adaptive techniques as needed, and Good safety Plan Occupational Therapy Plan Times Per Week: 900 minutes between OT/PT/ASSEMBLER SURGICAL GARMENT Current Treatment Recommendations: Strengthening, Balance training, ROM, [...] Jacki Davila - 07/03/2022 1:08 PM EDT Franchise Sales Director responded to consult for spiritual care. Patient said he was in a much better frame of mind and processing his condition and current need for dialysis. He is hopeful that it will not be a halfway need. Therapy, while intense and tiring, is going well. When asked, patient noted he is not very alevism and doesn't find prayer helpful but he [...] illness injury and it s impact;Discussed belief system/alevism practices/philippe;Explored/Affirmed feelings, thoughts, concerns;Sustaining Presence/Ministry ofpresence Outcome [...] guard assistance Toileting Skilled Clinical Factors: Per PASSEMENTERIE WORKER report- pt able to manage clothing, CGA [...] Contact guard assistance Toilet Transfers Comments: Per PASSEMENTERIE WORKER report Speech Therapy Current Medications: Current Facility-Administered [...] 14.9 PLT 285 243 BMP: Recent Labs 07/01/22 0607/03/22 0711 NA 136 138 K 3.9 4.3 [...] Jeanie Hunt - 07/02/2022 7:02 PM EDT Franchise Sales Director received consult to see patient; patient attempting to rest and asked promotion writer to come back tomorrow ; 07/02/22 1901 Encounter Summary Encounter Overview/Reason Spiritual/Emotional Needs Service Provided For: Patient Referral/Consult From: Nurse Last Encounter 07/02/22 Complexity of Encounter Low Spiritual/Emotional needs Type Spiritual Support Assessment/Intervention/Outcome Assessment Unable to assess Intervention Explored/Affirmed feelings, thoughts, concerns Outcome Expressed Gratitude;Engaged in conversation;Expressed feelings, needs, and concerns * Ada Vizcarra OT - 07/02/2022 2:51 PM EDT Occupational Therapy [facility] Occupational Therapy Daily Treatment Note Date: 07/02/22 Patient Name: Steven Walden Room: 2632/2632-01 Account: [id number] : 1960 (62 y.o.) Gender: male Referring [...] home environment to engage in ADLs safely Penitentiary Goals Time Frame for Penitentiary Goals : By discharge Cleaning Professional Goal 1: Pt will perform BADLs mod I, using appropriate adaptive techniques/equipment, andGood safety Cleaning Professional Goal 2: Pt will perform functional transfers/mobility, using least restrictive device, mod I and Good safety Cleaning Professional Goal 3: Pt will tolerate standing for 10+ minutes, participating in dynamic standing and reaching as tolerated, during self care/functional activity of choice Penitentiary Goal 4: Pt will V/D use of energy conservation/work simplification techniques to increaseIND during daily routine Cleaning Professional Goal 5: Pt will V/D at least three fall prevention/home safety modifications that are applicable to his daily routine and home environment Penitentiary Goal 6: Pt will improve opening small containers during self-care tasks as evidenced by 5seconds improvement on 9 hole peg test and 5# improvement of service agent strength Cleaning Professional Goal 7: Pt will perform light housekeeping/simple meal preparation with supervision, using adaptive techniques as needed, and Good safety Plan Occupational Therapy Plan Times Per Week: 900 minutes between OT/PT/ASSEMBLER SURGICAL GARMENT Current Treatment Recommendations: Strengthening, Balance training, ROM, [...] Minutes 62 Minutes 30 Minutes * Janet Salcedosharla, RAT CULTURIST - 07/02/2022 2:09 PM EDT Physical Therapy Facility/Department: [facility] Rehabilitation Physical Therapy Daily Treatment [...] cefepime with dialysis until 07/02/22. Admitted to [facility] 06/30/22. Family / Caregiver Present: No [...] nustep for increased endurance and speed, BUE/LE Penitentiary Goals Time Frame for Penitentiary Goals : by D/C Penitentiary Goal 1: Pt to demo IND transfers from varied surface heights. Cleaning Professional Goal 2: Pt to amb 200' with least restrictive device on varied surfaces, MOD I Penitentiary Goal 3: Pt to ascend/descend at least 8 stairs per home entry, SBA. Cleaning Professional Goal 4: Pt to score at least a 24 on Tinetti to improve standing balance to GOOD and reduce risk of falls for safe D/C. Cleaning Professional Goal 5: pt to improve BLE strength by 1/2 MMG. 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 residential goal 7: Pt to improve 5xSTS to [...] flat. Diagnostics: CBC: Recent Labs 06/30/22 0958 07/01/22 0623 WBC 13.6* 12.6* RBC 3.76* 3.56* HGB 11.6* 11.0* HCT 36.0* 32.9* MCV 95.7 92.4 RDW 13.7 14.5 PLT 276 285 BMP: Recent Labs 06/30/22 0958 07/01/22 0623 NA 137 136 K 3.7 3.9 CL [...] time: 3 hours 28 minutes UltraFiltration Goal: 9087-7321 L as tolerated UltraFiltration Removed: 2000 ml [...] 07/01/2022 3:54 PM EDT Physical Therapy Facility/Department: [facility] Rehabilitation Physical Therapy Daily Treatment [...] cefepime with dialysis until 07/02/22. [facility] Family / Caregiver Present: No [...] nustep for increased endurance and speed, BUE/LE Penitentiary Goals Time Frame for Penitentiary Goals : by D/C Cleaning Professional Goal 1: Pt to demo IND transfers from varied surface heights. Penitentiary Goal 2: Pt to amb 200' with least restrictive device on varied surfaces, MOD I Cleaning Professional Goal 3: Pt to ascend/descend at least 8 stairs per home entry, SBA. Penitentiary Goal 4: Pt to score at least a 24 on Tinetti to improve standing balance to GOOD and reduce risk of falls for safe D/C. Penitentiary Goal 5: pt to improve BLE strength by 1/2 MMG. Additional Goals?: Yes residential goal 6: Pt to complete 2MWT wtih distance of at least 175' with device, MOD I. domestic freight forwarder goal 7: Pt to improve 5xSTS to [...] 07/01/2022 1:29 PM EDT Physical Therapy Facility/Department: [facility] Physical Therapy Initial Assessment Name: [...] cefepime with dialysis until 07/02/22. [facility] Family / Caregiver Present: No [...] (Pt reported four falls since discharge from [facility] on 06-11-2022) Receives Help From: Family ADL Assistance: Needs assistance (Pt reported that he is independent with feeding, bathing, and toileting; occasional assist from spouse for foot level care) Ambulation Assistance: Independent (used cane PRN) Transfer Assistance: Independent Active Glass Block Bender: No Patient's Glass Block Bender Info: Spouse Mode of Transportation: Van Occupation: On disability Type of Occupation: [employer] Leisure & Hobbies: Collecting stamps, caring for his dog IADL Comments: sleeps in a flat bed at home; R handed Additional Comments: Pt reported that his works and was home alone at times. No therapy upon discharge from [facility]. Also has daughter who is currently not [...] 1327) Tinetti Total Score: 19 (07/01/22 1327) Tinneti Score Balance Score: 10 (07/01/22 1327) Gait Score: 9 (07/01/22 1327) Tinetti Total [...] nustep for increased endurance and speed, BUE/LE Penitentiary Goals Time Frame for Cleaning Professional Goals : by D/C Cleaning Professional Goal 1: Pt to demo IND transfers from varied surface heights. Cleaning Professional Goal 2: Pt to amb 200' with least restrictive device on varied surfaces, MOD I Cleaning Professional Goal 3: Pt to ascend/descend at least 8 stairs per home entry, SBA. Penitentiary Goal 4: Pt to score at least a 24 on Tinetti to improve standing balance to GOOD and reduce risk of falls for safe D/C. Penitentiary Goal 5: pt to improve BLE strength by 1/2 MMG. 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 residential goal 7: Pt to improve 5xSTS to [...] - 07/01/2022 1:17 PM EDT Occupational Therapy [facility] Occupational Therapy Evaluation Date: 07/01/22 Patient Name: Steven Walden Room: 2632/2632-01 Account: [id number] : 1960 (62 y.o.) Gender: male Referring [...] Okay for OT evaluation and treatment per PASSEMENTERIE WORKER Vitor. 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 No therapy upon discharge from [facility]. Also has daughter who is currently not [...] guard assistance Toileting Skilled Clinical Factors: Per PASSEMENTERIE WORKER report- pt able to manage clothing, CGA [...] needed: Supervision or touching assistance Comment: Per PASSEMENTERIE WORKER report CARE Score: 4 Discharge Goal: Independent [...] needed: Supervision or touching assistance Comment: Per PASSEMENTERIE WORKER report CARE Score: 4 Discharge Goal: Independent UE Function LUE AROM (degrees) LUE AROM : WFL Tone RUE RUE Tone: Normotonic LUE Strength L Hand General: 4-/5 LUE Strength Comment: Overall 4-/5 Left Hand Strength - Agricultural Research Director (lbs) Handle Setting 3: 47# (50, 49, 42) (Impaired, Norm: 65-103#) RUE AROM (degrees) RUE AROM : WFL Right Hand AROM (degrees) Right Hand AROM: WFL Tone LUE LUE Tone: Normotonic RUE Strength R Hand General: 4-/5 RUE Strength Comment: Overall 4-/5 Right Hand Strength - Agricultural Research Director (lbs) Handle Setting 3: 44.33# (39, 45, [...] Contact guard assistance Toilet Transfers Comments: Per PASSEMENTERIE WORKER report Functional mobility Functional Mobility Functional - [...] and independence with self care and mobility Penitentiary Goals Time Frame for Penitentiary Goals : By discharge Cleaning Professional Goal 1: Pt will perform BADLs mod I, using appropriate adaptive techniques/equipment, andGood safety Penitentiary Goal 2: Pt will perform functional transfers/mobility, using least restrictive device, mod I and Good safety Cleaning Professional Goal 3: Pt will tolerate standing for 10+ minutes, participating in dynamic standing and reaching as tolerated, during self care/functional activity of choice Penitentiary Goal 4: Pt will V/D use of energy conservation/work simplification techniques to increaseIND during daily routine Penitentiary Goal 5: Pt will V/D at least three fall prevention/home safety modifications that are applicable to his daily routine and home environment Cleaning Professional Goal 6: Pt will improve opening small containers during self-care tasks as evidenced by 5seconds improvement on 9 hole peg test and 5# improvement of service agent strength Cleaning Professional Goal 7: Pt will perform light housekeeping/simple meal preparation with supervision, using adaptive techniques as needed, and Good safety Plan Occupational Therapy Plan Times Per Week: 900 minutes between OT/PT/ASSEMBLER SURGICAL GARMENT Current Treatment Recommendations: Strengthening, Balance training, ROM, [...] were not included. ACUTE INPATIENT REHABILITATION ADMISSION [facility] Patient Name: Steven Walden Date of Admit: [...] Bocanegra Nurse 2 Completing Skin Assessment Isha ARIZA Active pressure injuries or complex wounds identified? [...] with the following documents provided to patient/responsible alliance party: 1. [facility] Individualized Disclosure Statement 2. Data Collection Information Summary for Patients in Inpatient Rehabilitation Facilities 3. Privacy Act Statement - Health Care Records Care plan was created with patient/responsible alliance party input and goals were agreed upon. Please refer to the admission navigator for further information. documented [facility] [employer] Work Phone: 1(994) 121-705303-22-2023 Hospital Discharge instructions* Discharge Instructions* Sara Delgadillo RN - 06/30/2022 3:56 PM EDT Kevin Myles MD [address] [facility] [id number] Follow up in 6 week(s) for stone fu Darion Randle MD [address] [facility] [address] [facility] [id number] Follow up Yo Batista MD [address] [facility] [id number] Follow up * Discharge Instr - SHAYNE* [...] Umm Walden Mobile Relation: Spouse Preferred language: Paraguayan Switching Operator needed? No Secondary Emergency Contact: Racheal Walden Mobile Relation: Child Preferred language: Paraguayan Switching Operator needed? No Past Surgical History: Past Surgical History: Procedure Laterality Date CHOLECYSTECTOMY 2011 CYSTOSCOPY Left 05/28/2022 CYSTOSCOPY, URETERAL STENT INSERTION, URETHRAL DILATION performed by Kevin Myles MD at [facility] OR CYSTOSCOPY Left 06/29/2022 CYSTOSCOPY, URETEROSCOPY, LEFT STENT REMOVAL, STONE BASKETING (Left) CYSTOSTOMY W/ STENT INSERTION Left 06/29/2022 Stent exchange HAND SURGERY Right 12/2021 IR TUNNELED CATHETER PLACEMENT GREATER THAN 5 YEARS 06/28/2022 IR TUNNELED CATHETER PLACEMENT GREATER THAN 5 YEARS 06/28/2022 Gillian Batista MD [facility] SPECIAL PROCEDURES URETER SURGERY Left 06/29/2022 CYSTOSCOPY, URETEROSCOPY, LEFT STENT REMOVAL, STONE BASKETING performed by Kevin Myles MD at [facility] OR Immunization History: Immunization History Administered Date(s) Administered COVID-19, J&J, (age 18y+), IM, 0.5 mL 09/04/2020 Active Problems: Patient Active Problem List Diagnosis Code DAISY (acute kidney injury) (FORMERLY [facility]) N17.9 Acute kidney injury superimposed on CKD ([facility]) N17.9, N18.9 Chronic kidney disease N18.9 Type 2 diabetes mellitus with stage 3a chronic kidney disease ([facility]) E11.22, N18.31 Hyperlipidemia E78.5 Primary hypertension I10 Urinary tract obstruction by kidney stone N20.0, N13.8 Hydronephrosis of left kidney N13.30 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 Left ureteral stone N20.1 Debility R53.81 BRITTANY (generalized anxiety disorder) F41.1 Major depressive disorder, recurrent, moderate ([facility]) F33.1 Tremor R25.1 Bandemia D72.825 Pyelonephritis of left kidney N12 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 Hyponatremia E87.1 Dependence on renal dialysis ([facility]) Z99.2 Metabolic acidosis E87.20 Isolation/Infection: Isolation No [...] MENTAL STATUS:} IV Access: { SHAYNE IV ACCESS:392958458} Nursing Mobility/ADLs: Walking {CHP DME ADLs:772525276} Transfer {CHP DME ADLs:799860718} Bathing {CHP DME ADLs:500255659} Dressing {CHP DME ADLs:881580400} Toileting {CHP DME ADLs:364467026} Feeding {P DME ADLs:303845197} Data Warehousing Architect {P DME ADLs:606676060} Med Delivery { SHAYNE MED Delivery:258455975} Wound Care Documentation and Therapy: Elimination: Continence: Bowel: {YES / NO:} Bladder: {YES / NO:} Urinary Catheter: {Urinary Catheter:734078508} Colostomy/Ileostomy/Ileal Conduit: {YES / NO:} Date of Last BM: Intake/Output Summary (Last 24 hours) at 07/07/2022 1133 Last data filed at 07/06/2022 1800 Gross per 24 hour Intake 5860 ml Output 2500 ml Net 3360 ml I/O last 3 completed shifts: In: 6580 [P.O.:1080; I.V.:5000] Out: 2500 Safety Concerns: { SHAYNE Safety Concerns:528140217} Impairments/Disabilities: { SHAYNE Impairments/Disabilities:656999353} Nutrition Therapy: Current Nutrition Therapy: { SHAYNE Diet List:801910991} Routes of Feeding: {[facility] DME Other Feedings:501896759} Liquids: {[facility] liquid thickness:19971} Daily Fluid Restriction: {CH DME Yes amt example:081215582} Last Modified Barium Swallow with Video (Video Swallowing Test): {Done Not Done Date:} Treatments at the Time of Hospital Discharge: Respiratory Treatments: Oxygen Therapy: {Therapy; copd oxygen:93063} Ventilator: { CC Vent List:016922013} Rehab Therapies: {THERAPEUTIC INTERVENTION:2461418133} Weight Bearing Status/Restrictions: {[facility] Weight Bearin} Other Medical Equipment (for information only, NOT a DME order): {EQUIPMENT:250115584} Other Treatments: Patient's personal belongings (please select all that are sent with patient): {[facility] DME Belongings:518753518} RN SIGNATURE: {Esignature:889726551} CASE MANAGEMENT/SOCIAL WORK SECTION Inpatient Status Date: 06/30/2022 Readmission Risk Assessment Score: Readmission Risk Risk of Unplanned Readmission: 31 Discharging to Facility/ Agency Declined Home Health Care/ Will attend OP Therapy~ per patient Dialysis Facility (if applicable) [facility] [address] [place], [place] [id number] M W F treatment days. 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 Update Admission H&P: {CHP DME Changes in HandP:402472814} PHYSICIAN SIGNATURE: {Esignature:824632812} documented in this encounterBON [email or web address] Phone: [phone]) 134-338003-22-2023 History of Present illness Narrative* Betty Hess MD - 06/30/2022 1:24 PM EDT Physician Progress Note PATIENT: STEVEN WALDEN CSN #: [id number] : 1960 ADMIT DATE: 06/20/2022 1:58 AM DISCH DATE: RESPONDING PROVIDER #: Betty Hess MD QUERY TEXT: Patient admitted with [...] any questions. Jessica Alvarez RN, CDS cell- [phone] office hours - [id number] Options provided: -- sepsis due to pyeonephritis [...] on 06/30/2022 12:43 PM Electronically signed by: Betty Hess MD 06/30/2022 1:23 PM * Yo Batista MD - 06/30/2022 11:30 AM EDT [...] will be getting his outpatient dialysis at [facility]. HPI: 62-year-old male with a PMH significant of type II DM, diagnosed 15 years ago with vision compromise (no diagnosis of retinopathy), A1c has been fluctuating between 7 and 11 according to his family, CKD stage III, used to follow up at [facility] nephrology, has not seen hris administrator in the last 6 years, with unknown [...] syringe, Once per day on Tue Sat gabapentin (NEURONTIN) capsule 300 mg, Daily insulin [...] Date/Time NITRU NEGATIVE 06/20/2022 08:30 AM COLORU Gloster 06/20/2022 08:30 AM PHUR 5.5 06/20/2022 08:30 [...] will be getting his outpatient dialysis at [facility] upon discharge. Postop management per urology. Continue antibiotics as per GFR<15. Avoid nephrotoxin. Continue on renal diet. Okay to discharge from nephrology standpoint.. Please do not hesitate to call with questions. Yo Batista MD [facility] This note is created with the assistance of a speech-recognition program. While intending to generate a document that actually reflects the content of the visit, no guarantees can be provided that every mistake has been identified and corrected by editing. * Betty Hess MD - 06/30/2022 11:03 AM EDT Images from the original note were not included. [facility] Office: [phone] Chris Osman DO, Terrence Johns DO, Stefani Augustin DO, Jaspreet Mosley DO, Surekha Batista MD, Adrienne Means MD, Rosales Singh MD, Caitlyn Benz MD, Abdoul Camargo MD, Cathy Farooq MD, Chepe Cordova DO, Betty Hess MD, Deja Guevara DO, April Girard MD, Arvin Maya MD, Jessica Osman DO, Shima Watson MD, Raphael Connor MD, Jerome Simon DO, Yoselyn Thakkar MD, Codi Self MD, Gilda Sousa MD, Sheyla Viveros MD, Vikki Adorno MD, Jarocho Real DO, Krishan Vogt MD, Radha William MD, Shaunna Freitas CNP, Prabha Hauser CNP, Shirlene Dacosta ARCHITECTURAL INSPECTOR, Favian Ji, ARCHITECTURAL INSPECTOR, Yesenia Espino, TEJINDER, Ema Mason, KARINA, Calista Mendez, KARINA, Gunjan Ruiz CNP, Sharon Barry CNP, Sri Weiner CNP, Gillian Valles PARom, Carleen Paiz, PILE DRIVER OPERATOR BARGE MOUNTED, Catie Cheema, ARCHITECTURAL INSPECTOR, Chelsea Kulkarni, ARCHITECTURAL INSPECTOR [facility] IN-PATIENT SERVICE [facility] Progress Note 06/30/2022 11:03 AM Name: Steven Walden Acct: [id number] Room: [facility]0438-01 Day: 10 Admit Date: 06/20/2022 1:58 AM [...] REMOVAL, STONE BASKETING Surgeon(s): Kevin Myles MD Physician Relations Representative: * No surgical staff found * Anesthesia: [...] mg IntraVENous Once per day on Tue gabapentin 300 mg Oral Daily insulin glargine [...] 01:49 PM PBEA 3 06/26/2022 01:49 PM [id number] 06/26/2022 01:49 PM FIO2 30.0 06/26/2022 01:49 PM Lab Results Component Value Date/Time SPECIAL RAC 10ML 06/20/2022 03:51 AM Lab Results Component Value Date/Time CULTURE 06/20/2022 08:28 AM NO SIGNIFICANT GROWTH Identified as : VIRIDANS STREPTOCOCCUS GROUP <[id number] CFU/ML Radiology: CT HEAD WO CONTRAST Result [...] POA * (Principal) DAISY (acute kidney injury) (FORMERLY [facility]) 06/20/2022 Yes Acute kidney injury superimposed on CKD (FORMERLY [facility]) 06/20/2022 Yes Chronic kidney disease 06/20/2022 Yes [...] ARU Discussed with case management, appreciate assistance Betty Hess MD 06/30/2022 11:03 AM * Kristina Burleson MD - 06/30/2022 8:02 AM EDT Images from the original note were not included. Kevin Myles MD [facility] Urology Progress Note Subjective: S/p left ureteral [...] -- -- -- -- 10 -- -- 06/29/22 205 125/84 97.9 F (36.6 C) Oral 77 [...] 2300 ml Net -1600 ml Recent Labs 06/28/22 0927 06/28/22 1017 06/29/22 1135 WBC 13.5* 13.4* 12.9* HGB 11.7* 11.4* 11.4* HCT 37.1* 35.4* 35.7* MCV 97.4 94.1 95.5 PLT 301 357 301 Recent Labs 06/28/22 0927 06/28/22 1017 06/29/22 [...] Kristina Burleson MD 8:02 AM 06/30/2022 * Lety Mcbride RN - 06/29/2022 5:11 PM EDT [...] treatment=3.5 hours Pt tolerated tx well. * Lety Mcbride RN - 06/29/2022 1:26 PM EDT Dialysis Time Out To be done by RN and tech or 2 RNs Staff Names Jax To and Kassandra Bowie [x] Identity of the patient using 2 patient identifiers [x] Consent for treatment [x] Equipment-proper machine and dialyzer [x] B-Hep B status [x] Orders- to include bath, blood flow, dialyzer, time and fluid removal [x] Access-Correct site and in working order [x] Time for patient to ask questions. * Betty Hess MD - 06/29/2022 12:28 PM EDT Images from the original note were not included. [facility] Office: [phone] Chris Osman DO, Terrence Johns DO, Stefani Augustin DO, Jaspreet Mosley DO, Surekha Batista MD, Adrienne Means MD, Rosales Singh MD, Caitlyn Benz MD, Abdoul Camargo MD, Cathy Farooq MD, Chepe Cordova DO, Betty Hess MD, Deja Guevara DO, April Girard [...] Espino DNP, Ema Mason, KARINA, Calista Mendez, KARINA, Gunjan Ruiz, KARINA, Sharon Barry, KARINA, Sri Weiner, KARINA, Gillian Valles PA-C, Carleen Paiz, SARA, Catie Cheema, KARINA, Chelsea Kulkarni, KARINA [facility] IN-PATIENT SERVICE [facility] Progress Note 06/29/2022 12:28 PM Name: Steven Walden Acct: [id number] Room: [address] [place] [address] Day: 9 Admit Date: 06/20/2022 1:58 AM [...] mg IntraVENous Once per day on Tue gabapentin 300 mg Oral Daily insulin glargine [...] 01:49 PM PBEA 3 06/26/2022 01:49 PM [id number] 96 06/26/2022 01:49 PM FIO2 30.0 06/26/2022 01:49 PM Lab Results Component Value Date/Time SPECIAL RAC 10ML 06/20/2022 03:51 AM Lab Results Component Value Date/Time CULTURE 06/20/2022 08:28 AM NO SIGNIFICANT GROWTH Identified as : VIRIDANS STREPTOCOCCUS GROUP <[id number] CFU/ML Radiology: CT HEAD WO CONTRAST Result [...] POA * (Principal) DAISY (acute kidney injury) (FORMERLY [facility]) 06/20/2022 Yes Acute kidney injury superimposed on CKD (FORMER[facility]) 06/20/2022 Yes Chronic kidney disease 06/20/2022 Yes [...] the morning. Continue dialysis per nephrology recommendations Betty Hess MD 06/29/2022 12:28 PM * Yo [...] stage III, used to follow up at [facility] nephrology, has not seen hris administrator in the last 6 years, with unknown [...] [Jun] gabapentin (NEURONTIN) capsule 300 mg, Daily [Jun] insulin glargine (LANTUS) injection vial 25 Units, Nightly [JUN Hold] ALPRAZolam (XANAX) tablet 0.5 mg, BID PRN [JUN Hold] heparin (porcine) injection 1,100 Units, PRN [JUN Hold] heparin (porcine) injection 1,400 Units, PRN [JUN Hold] brexpiprazole (REXULTI) tablet 2 mg, Daily [JUN Hold] senna (SENOKOT) tablet 8.6 mg, Nightly [Jun] polyethylene glycol (GLYCOLAX) packet 17 g, Daily [Jun] bisacodyl (DULCOLAX) suppository 10 mg, Daily [JUN Hold] heparin (porcine) injection 5,000 Units, 3 times per day [JUN Hold] albuterol sulfate HFA (PROVENTIL;VENTOLIN;PROAIR) 108 (90 Base) MCG/ACT inhaler 2 puff, Q6H PRN [JUN Hold] allopurinol (ZYLOPRIM) tablet 100 mg, Daily [JUN Hold] atorvastatin (LIPITOR) tablet 20 mg, Nightly [JUN Hold] budesonide-formoterol (SYMBICORT) 80-4.5 MCG/ACT inhaler 2 puff, BID [MAR Hold] lamoTRIgine (LAMICTAL) tablet 200 mg, Daily [Jun] mirtazapine (REMERON) tablet 30 mg, Nightly [Jun] pantoprazole (PROTONIX) tablet 40 mg, QAM AC [Jun] propranolol (INDERAL) tablet 20 mg, TID [JUN Hold] tamsulosin (FLOMAX) capsule 0.4 mg, Daily [Jun] venlafaxine (EFFEXOR XR) extended release capsule 150 mg, Daily [Jun] sodium chloride flush 0.9 % injection 5-40 mL, 2 times per day [JUN Hold] sodium chloride flush 0.9 % injection 5-40 mL, PRN [Jun] 0.9 % sodium chloride infusion, PRN [Jun] ondansetron (ZOFRAN-ODT) disintegrating tablet 4 mg, Q8H PRN Or [Jun] ondansetron (ZOFRAN) injection 4 mg, Q6H PRN [Jun] acetaminophen (TYLENOL) tablet 650 mg, Q6H PRN Or [Jun] acetaminophen (TYLENOL) suppository 650 mg, Q6H PRN [JUN Hold] insulin lispro (HUMALOG) injection vial 0-8 Units, TID WC [Jun] insulin lispro (HUMALOG) injection vial 0-4 Units, Nightly [Jun] glucose chewable tablet 16 g, PRN [Jun] dextrose bolus 10% 125 mL, PRN Or [Jun] dextrose bolus 10% 250 mL, PRN [JUN [...] Date/Time NITRU NEGATIVE 06/20/2022 08:30 AM COLORU [place] 06/20/2022 08:30 AM PHUR 5.5 06/20/2022 08:30 [...] Continue on renal diet. BMP in AM. cloud services architect to help towards finding outpatient hemodialysis spot but might be getting discharged to [facility]. Will follow. Please do not hesitate to call with questions. Angel Frazier MD, MPH, PGY-2 Internal Medicine Resident [facility], [place], [place] Attending Physician Statement I have discussed the care of this patient, including pertinent history and exam findings, with the Resident/ARCHITECTURAL INSPECTOR. I have reviewed and edited the [place] elements of all parts of the encounter with the Resident/ARCHITECTURAL INSPECTOR. I agree with the assessment, plan and orders as documented by the Resident/ARCHITECTURAL INSPECTOR. Yo Batista MD [facility] This note is created with the assistance [...] note were not included. Kevin Myles MD [facility] Urology Progress Note Subjective: S/p left ureteral [...] disorder, recurrent, moderate (HCC) Tremor Bandemia Pyelonephritis of left kidney Emphysematous cystitis Hyponatremia Plan: Maintain carballo catheter as needed for I/O monitoring Most recent urine Cx from 06/20 - NG Continue cefepime per ID recs WBC 13.5 (14) Ok per ID for ureteroscopy today Keep NPO until then Emiliano Leavitt MD 6:54 AM 06/29/2022 * Lety Mcbride RN - 06/28/2022 6:06 PM EDT Pt arterial pressures elevated despite all provided interventions. Both arterial and venous lumens had sluggish blood return upon tx initiation. notified. IR will place tunneled cath today, hold HD per Dr Ballard. * Allegra Scherer MD - 06/28/2022 1:53 PM EDT Images from the original note were not included. [facility] - Infectious diseases evaluation admission date 06/20/2022 reason for consultation: pyelonephritis Impression : Current: Left pyelonephritis Left ureteral stent for obstructing stone placed 2 weeks RAT CULTURIST Emphysematous cystitis-strep low count bandemia Bilateral nonobstructive [...] procedure Ok for DC Infection Control Recommendations [place] Precautions Contact Isolation Antimicrobial Stewardship Recommendations Simplification [...] X2 NGTD 06/20 Urine culture 06/20 strep <[id number] cfu/ml Imaging: CT abdomen and pelvis 06/20 [...] DILATION performed by Kevin Myles MD at [facility] OR HAND SURGERY Right 12/2021 Medications: gabapentin [...] Eldon Mcallister Office: Perfect serve / office [phone] I have discussed the care of the [...] 170-180 gm Weight Used for Protein Requirements: [place] Fluid (ml/day): Per MD Method Used for [...] soon to determine Toshia [address]onds [address] Contact: [phone] * Lety Mcbride RN - 06/28/2022 10:00 AM EDT [...] from the original note were not included. [facility] Office: [phone] Chris Osman DO, Terrence Johns DO, Stefani Augustin DO, Jaspreet Mosley DO, Surekha Batista MD, Adrienne Means MD, Rosales Singh MD, Caitlyn Benz MD, Abdoul Camargo MD, Cathy Farooq MD, Chepe Cordova DO, Betty Hess MD, Deja Guevara DO, April Girard MD, Arvin Maya MD, Jessica Osman DO, Shima Watson MD, Raphael Connor MD, Jerome Simon DO, Yoselyn Thakkar MD, Codi Self MD, Gilda Sousa MD, Sheyla Viveros MD, Vikki Adorno MD, Jarocho Real DO, Krishan Vogt MD, Radha William MD, Shaunna Freitas CNP, Prabha Hauser CNP, Shirlene Dacosta, KARINA, Favian Ji, KARINA, Yesenia Espino, TEJINDER, Ema Mason, KARINA, Calista Mendez, KARINA, Gunjan Ruiz CNP, Sharon Barry CNP, Sri Weiner ARCHITECTURAL INSPECTOR, Gillian Valles PA-C, Carleen Paiz, SARA, Catie Cheema, ARCHITECTURAL INSPECTOR, Chelsea Kulkarni, ARCHITECTURAL INSPECTOR [facility] IN-PATIENT SERVICE [facility] Progress Note 06/28/2022 9:14 AM Name: Steven Walden Acct: [id number] Room: [address] [place], [place] [address] Day: 8 Admit Date: 06/20/2022 1:58 AM [...] 01:49 PM PBEA 3 06/26/2022 01:49 PM [id number] 96 06/26/2022 01:49 PM FIO2 30.0 06/26/2022 01:49 PM Lab Results Component Value Date/Time SPECIAL RAC 10ML 06/20/2022 03:51 AM Lab Results Component Value Date/Time CULTURE 06/20/2022 08:28 AM NO SIGNIFICANT GROWTH Identified as : VIRIDANS STREPTOCOCCUS GROUP <[id number] CFU/ML Radiology: CT ABDOMEN PELVIS WO CONTRAST [...] POA * (Principal) DAISY (acute kidney injury) (FORMERLY [facility]) 06/20/2022 Yes Acute kidney injury superimposed on CKD (FORMERLY [facility]) 06/20/2022 Yes Chronic kidney disease 06/20/2022 Yes Type 2 diabetes mellitus with stage 3a chronic kidney disease (HCC) 06/20/2022 Yes Hyperlipidemia 06/20/2022 Yes Primary hypertension 06/20/2022 Yes Left ureteral stone 06/20/2022 Yes BRITTANY (generalized anxiety disorder) 06/20/2022 Yes Major depressive disorder, recurrent, moderate (FORMERLY [facility]) 06/20/2022 Yes Bandemia 06/20/2022 Yes Pyelonephritis of [...] stage III, used to follow up at [facility] nephrology, has not seen hris administrator in the last 6 years, with unknown [...] Date/Time NITRU NEGATIVE 06/20/2022 08:30 AM COLORU [place] 06/20/2022 08:30 AM PHUR 5.5 06/20/2022 08:30 [...] Frazier MD, MPH, PGY-2 Internal Medicine Resident [facility], [place], [place] Attending Physician Statement I have discussed [...] MD Nephrology Attending Physician [facility] 06/28/2022 * Emiliano Leavitt MD - 06/28/2022 [...] -- -- -- 15 -- -- 06/27/22 1945 (!) 150/87 98.4 F (36.9 C) Oral [...] disorder, recurrent, moderate (HCC) Tremor Bandemia Pyelonephritis of left kidney Emphysematous [...] vomiting food still takes strange, lessanxious on klonopin, family at bedside. Urine in Carballo does [...] stage III, used to follow up at [facility] nephrology, has not seen hris administrator in the last 6 years, with unknown [...] Date/Time NITRU NEGATIVE 06/20/2022 08:30 AM COLORU [place] 06/20/2022 08:30 AM PHUR 5.5 06/20/2022 08:30 [...] BAUTISTA APN 06/27/2022 2:30 PM [facility] Attending Physician Statement I have discussed the care of Steven Walden, including pertinent history and exam findings, with the ARCHITECTURAL INSPECTOR. I have reviewed the [place] elements of all parts of the encounter with the ARCHITECTURAL INSPECTOR. I agree with the assessment, plan and orders as documented. Ace Hanson MD MD, MRCP (), FACP 06/27/2022 3:45 PM [facility] * Carolina Marquez, RAT CULTURIST - 06/27/2022 10:43 AM EDT Physical Therapy Facility/Department: [address] ONC/MED SURG Physical Therapy Daily treatment [...] (ambulates with cane at home, CTA at [facility]) Patient Diagnosis(es): The primary encounter diagnosis was Acute kidney injury superimposed on CKD (HCC). A diagnosis of Pyelonephritis was also pertinent to this visit. Past Medical History: has a past medical history of Anxiety, Chronic kidney disease, Congenital heart defect, Diabetes mellitus (), Gout, Hyperlipidemia, Hypertension, Major depressive disorder, Morbid obesity (), Neuropathy, SHADE (obstructive sleep apnea), and Peptic [...] were not included. [facility] - Infectious diseases evaluation Progress Note admission date 06/20/2022 reason for consultation: pyelonephritis Impression : Left pyelonephritis Left ureteral stent for obstructing stone placed 2 weeks RAT CULTURIST Emphysematous cystitis-strep low count bandemia Bilateral nonobstructive [...] with Dr Scherer for infection. Please call [phone] for appointment Infection Control Recommendations [place] Precautions Contact Isolation Antimicrobial Stewardship Recommendations Simplification [...] with Dr Scherer for infection. Please call [phone] for appointment Evaluated by Psychiatry for recurrent [...] DILATION performed by Kevin Myles MD at [facility] OR HAND SURGERY Right 12/2021 Medications: gabapentin [...] Brooks MD Office: Perfect serve / office [phone] * Sheyla Viveros MD - 06/27/2022 7:58 AM EDT Images from the original note were not included. [facility] Office: [phone] Chris Osman DO, Terrence Johns DO, Stefani Augustin DO, Jaspreet Mosley DO, Surekha Batista MD, Adrienne Means MD, Rosales Singh MD, Caitlyn Benz MD, Abdoul Camargo MD, Cathy Farooq MD, Chepe Cordova DO, Betty Hess MD, Deja Guevara DO, April Girard MD, Arvin Maya MD, Jessica Osman DO, Shima Watson MD, Raphael Connor MD, Jerome Simon DO, Yoselyn Thakkar MD, Codi Self MD, Gilda Sousa MD, Sheyla Viveros MD, Vikki Adorno MD, Jarocho Real DO, Krishan Vogt MD, Radha William MD, Shaunna Freitas, ARCHITECTURAL INSPECTOR, Prabha Hauser, ARCHITECTURAL INSPECTOR, Shirlene Dacosta, ARCHITECTURAL INSPECTOR, Favian Ji, ARCHITECTURAL INSPECTOR, Yesenia Espino, TEJINDER, Ema Mason, ARCHITECTURAL INSPECTOR, Calista Mendez, ARCHITECTURAL INSPECTOR, Gunjan Ruiz, ARCHITECTURAL INSPECTOR, Sharon Barry, ARCHITECTURAL INSPECTOR, Sri Weiner, ARCHITECTURAL INSPECTOR, Gillian Valles PA-C, Carleen Paiz, PILE DRIVER OPERATOR BARGE MOUNTED, Catie Cheema, ARCHITECTURAL INSPECTOR, Chelsea Kulkarni, ARCHITECTURAL INSPECTOR [facility] IN-PATIENT SERVICE [facility] Progress Note 06/27/2022 7:58 AM Name: Steven Walden Acct: [id number] Room: [facility] Day: 7 Admit Date: 06/20/2022 1:58 [...] 101 100 100 CO2 23 23 25 GLUCOSE 205* 130* 120* BUN 41* 31* 35* CREATININE 4.65* 3.79* 4.39* MG 1.9 2.0 -- ANIONGAP 15 15 15 LABGLOM 14* 17* 15* CALCIUM 8.9 9.0 9.2 Recent Labs 06/25/22 1936 06/26/22 0747 06/26/22 1145 06/26/22 1315 06/26/22 16506/26/222038 POCGLU 173* 122* 152* 134* 140* 158* ABG: Lab Results Component Value Date/Time POCPH 7.423 06/26/2022 01:49 PM POCPCO2 42.6 06/26/2022 01:49 PM POCPO2 78.7 06/26/2022 01:49 PM POCHCO3 27.8 06/26/2022 01:49 PM PBEA 3 06/26/2022 01:49 PM [id number] 96 06/26/2022 01:49 PM FIO2 30.0 06/26/2022 01:49 PM Lab Results Component Value Date/Time SPECIAL RAC 10ML 06/20/2022 03:51 AM Lab Results Component Value Date/Time CULTURE 06/20/2022 08:28 AM NO SIGNIFICANT GROWTH Identified as : VIRIDANS STREPTOCOCCUS GROUP <[id number] CFU/ML Radiology: CT ABDOMEN PELVIS WO CONTRAST [...] POA * (Principal) DAISY (acute kidney injury) (FORMERLY [facility]) 06/20/2022 Yes Acute kidney injury superimposed on CKD ([facility]) 06/20/2022 Yes Chronic kidney disease 06/20/2022 Yes Type 2 diabetes mellitus with stage 3a chronic kidney disease ([facility]) 06/20/2022 Yes Hyperlipidemia 06/20/2022 Yes Primary hypertension 06/20/2022 Yes Left ureteral stone 06/20/2022 Yes BRITTANY (generalized anxiety disorder) 06/20/2022 Yes Major depressive disorder, recurrent, moderate (FORMERLY [facility]) 06/20/2022 Yes Bandemia 06/20/2022 Yes Pyelonephritis of [...] from the original note were not included. [facility] Office: [phone] Chris Osman DO, Terrence Johns DO, Stefani Augustin DO, Jaspreet Mosley DO, Surekha Batista MD, Adrienne Means MD, Rosales Singh MD, aCitlyn Benz MD, Abdoul Camargo MD, Cathy Farooq MD, Chepe CordovaDO, Betty Hess MD, Deja Guevara DO, Aprli Girard MD, Arvin Maya MD, Jessica Osman DO, Shima Watson MD, Raphael Connor MD, Jerome Simon, DO, Yoselyn Thakkar MD, Codi Self MD, Gilda Sousa MD, Sheyla Viveros MD, Vikki Adorno MD, Jarocho Real DO, Krishan Vogt MD, Radha William MD, Shaunna Freitas, ARCHITECTURAL INSPECTOR, Prabha Hauser, ARCHITECTURAL INSPECTOR, Shirlene Dacosta, ARCHITECTURAL INSPECTOR, Favian Ji, ARCHITECTURAL INSPECTOR, Yesenia Espino, TEJINDER, Ema Mason, ARCHITECTURAL INSPECTOR, Calista Mendez, ARCHITECTURAL INSPECTOR, Gunjan Ruiz, ARCHITECTURAL INSPECTOR, Sharon Barry, ARCHITECTURAL INSPECTOR, Sri Weiner, ARCHITECTURAL INSPECTOR, THANH Sosa-Seda, Carlene Paiz, PILE DRIVER OPERATOR BARGE MOUNTED, Catie Cheema, ARCHITECTURAL INSPECTOR, Chelsea Kulkarni, ARCHITECTURAL INSPECTOR [facility] IN-PATIENT SERVICE [facility] Second Visit Note For more detailed information please refer to the progress note of the day 06/27/2022 8:00 AM Name: Steven Walden Acct: [id number] Room: 0438/0438-01 Day: 7 Admit Date: 06/20/2022 [...] MD 06/27/2022 8:00 AM * Sailaja Schaefer [facility] - 06/26/2022 12:51 PM EDT Pharmacy Note [...] stage III, used to follow up at [facility] nephrology, has not seen hris administrator in the last 6 years, with unknown [...] mg, Q4H PRN LABS CBC: Recent Labs 06/24/22 0554 06/25/22 0630 06/26/22 0648 WBC 10.1 10.9 13.7* RBC 3.77* 3.87* 3.93* HGB 11.9* 12.0* 12.1* HCT 35.9* 36.9* 37.5* MCV 95.2 95.3 95.4 MCH 31.6 31.0 30.8 MCHC 33.1 32.5 32.3 RDW 14.0 13.6 13.3 PLT 223 283 299 MPV 10.4 10.0 10.0 BMP: Recent Labs 06/24/22203006/25/22 0630 06/26/22 0648 NA 137 139 138 K 3.8 3.7 3.6* CL 99 101 100 CO2 BUN 39* 41* 31* CREATININE 4.24* 4.65* 3.79* GLUCOSE 191* 205* 130* CALCIUM 8.3* 8.9 9.0 BNP:No results found for: BNP PHOSPHORUS: No results for input(s): PHOS in the last 72 hours. MAGNESIUM: Recent Labs 06/24/22 0554 06/25/22 0630 06/26/22 0648 MG 1.8 1.9 2.0 ALBUMIN: No [...] Date/Time NITRU NEGATIVE 06/20/2022 08:30 AM COLORU [place] 06/20/2022 08:30 AM PHUR 5.5 06/20/2022 08:30 [...] Frazier MD, MPH, PGY-2 Internal Medicine Resident [facility], [place], [place] Attending Physician Statement I have discussed the care of Steven Walden, including pertinent history and exam findings, with the Fellow/Residentt. I have reviewed the [place] elements of all parts of the encounter with the Fellow/ Resident. I agree with the assessment, plan and orders as documented by the resident. Ace Hanson MD MD, MRCP (), FACP 06/26/2022 12:28 PM [facility] * Sheyla Viveros MD - 06/26/2022 8:04 AM EDT Images from the original note were not included. [facility] Office: [phone] Chris Osman DO, Terrence Johns DO, Stefani Augustin DO, Jaspreet Mosley DO, Surekha Batista MD, Adrienne Means MD, Rosales Singh MD, Caitlyn Benz MD, Abdoul Camargo MD, Cathy Farooq MD, Chepe Cordova DO, Betty Hess MD, Deja Guevara DO, April Girard [...] Carleen Paiz, SARA, Catie Cheema CNP, Chelsea Kulkarni CNP [facility] IN-PATIENT SERVICE [facility] Progress Note 06/26/2022 8:04 AM Name: Steven Walden Acct: [id number] Room: [address] [place] [address] Day: 6 Admit Date: 06/20/2022 1:58 AM [...] 10.0 Chemistry: Recent Labs 06/24/22 0554 06/24/22 2031 06/25/22 [...] results found for: POCPH, PHART, PH, POCPCO2, OPK0IOS, PCO2, POCPO2, PO2ART, PO2, POCHCO3, CQH6ZGA, HCO3, NBEA, PBEA, BEART, BE, THGBART, THB, LEX0CCL, YLKK8BHH, O6DYDMIL, O2SAT, FIO2 Lab Results Component Value Date/Time SPECIAL RAC 10ML 06/20/2022 03:51 AM Lab Results Component Value Date/Time CULTURE 06/20/2022 08:28 AM NO SIGNIFICANT GROWTH Identified as : VIRIDANS STREPTOCOCCUS GROUP <[id number] CFU/ML Radiology: CT ABDOMEN PELVIS WO CONTRAST [...] POA * (Principal) DAISY (acute kidney injury) (FORMERLY [facility]) 06/20/2022 Yes Acute kidney injury superimposed on CKD ([facility]) 06/20/2022 Yes Chronic kidney disease 06/20/2022 Yes Type 2 diabetes mellitus with stage 3a chronic kidney disease (FORMERLY [facility]) 06/20/2022 Yes Hyperlipidemia 06/20/2022 Yes Primary hypertension 06/20/2022 Yes Left ureteral stone 06/20/2022 Yes BRITTANY (generalized anxiety disorder) 06/20/2022 Yes Major depressive disorder, recurrent, moderate ([facility]) 06/20/2022 Yes Bandemia 06/20/2022 Yes Pyelonephritis of [...] were not included. [facility] - Infectious diseases evaluation Progress Note admission date 06/20/2022 reason for consultation: pyelonephritis Impression : Left pyelonephritis Left ureteral stent for obstructing stone placed 2 weeks RAT CULTURIST Emphysematous cystitis-strep low count bandemia Bilateral nonobstructive [...] with Dr Scherer for infection. Please call [phone] for appointment Infection Control Recommendations [place] Precautions Contact Isolation Antimicrobial Stewardship Recommendations Simplification [...] with Dr Scherer for infection. Please call [phone] for appointment Summary of relevant labs: 06/26/2022 [...] DILATION performed by Kevin Myles MD at [facility] OR HAND SURGERY Right 12/2021 Medications: insulin [...] Brooks MD Office: Perfect serve / office [phone] * Carolina Marquez, RAT CULTURIST - 06/25/2022 4:15 PM EDT Physical Therapy Facility/Department: [address] ONC/MED SURG Physical Therapy Daily treatment [...] kidney disease, Congenital heart defect, Diabetes mellitus (), Gout, Hyperlipidemia, Hypertension, Major depressive disorder, Morbid obesity (), Neuropathy, SHADE (obstructive sleep apnea), and Peptic [...] to participate and reassurance. Pt stated to RAT CULTURIST that he wants to kill himself, and they took his tools away , RAT CULTURIST immediately notified RN, and they followed SI [...] 30 mins CGA than SBA AM-PAC Score AM-[facility] Inpatient Mobility Raw Score : 16 (06/25/221614) AM-PAC Inpatient T-Scale Score : 40.78 (06/25/221614) Mobility [...] Timed Code Treatment Minutes: 60 Minutes Carolina Marquez, FAM * Sheyla Viveros MD - 06/25/2022 3:10 [...] Type of access used=Temp catheter Length of rleaxjten=701 Patient tolerated second treatment well with no complaints. Treatment ended 20 mins early d/t machine clotting. president trust companyChristopher Zapata notified. * Estela Hugo - 06/25/2022 9:50 [...] were not included. [facility] - Infectious diseases evaluation admission date 06/20/2022 reason for consultation: pyelonephritis Impression : Current: Left pyelonephritis Left ureteral stent for obstructing stone placed 2 weeks RAT CULTURIST Emphysematous cystitis-strep low count bandemia Bilateral nonobstructive [...] antidepressants Ok for DC Infection Control Recommendations [place] Precautions Contact Isolation Antimicrobial Stewardship Recommendations Simplification [...] - 10.9 CRP 111 Micro: Blood culture X206/20 Urine [...] DILATION performed by Kevin Myles MD at [facility] OR HAND SURGERY Right 12/2021 Medications: cefepime [...] Chela Gonsalves Office: Perfect serve / office [phone] I have discussed the care of the [...] original note were not included. Occupational Therapy [facility] Occupational Therapy Not Seen Note DATE: 06/25/2022 NAME: Steven Walden : 1960 Patient not seen this date for Occupational Therapy due to: Hemodialysis: Next Scheduled Treatment: 06/26 * Sheyla Viveros MD - 06/25/2022 8:43 AM EDT Images from the original note were not included. [facility] Office: [phone] Chris Osman DO, Terrence Johns DO, Stefani Augustin DO, Jaspreet Mosley DO, Surekha Batista MD, Adrienne Means MD, Rosales Singh MD, Caitlyn Benz MD, Abdoul Camargo MD, Cathy Farooq MD, Chepe CordovaDO, Betty Hess MD, Deja Guevara DO, April Girard MD, Arvin Maya MD, Jessica Osman DO, Shima Watson MD, Raphael Connor MD, Jerome Simon DO, Yoselyn Thakkar MD, Codi Self MD, Gilda Sousa MD, Sheyla Viveros MD, Vikki Adorno MD, Jarocho Real DO, Krishan Vogt MD, Radha William MD, Shaunna Freitas, ARCHITECTURAL INSPECTOR, Prabha Hauser, ARCHITECTURAL INSPECTOR, Shirlene Dacosta, ARCHITECTURAL INSPECTOR, Favian Ji, ARCHITECTURAL INSPECTOR, Yesenia Espino, TEJINDER, Ema Mason, ARCHITECTURAL INSPECTOR, Calista Mendez, ARCHITECTURAL INSPECTOR, Gunjan Ruiz, ARCHITECTURAL INSPECTOR, Sharon Barry, ARCHITECTURAL INSPECTOR, Sri Weiner, ARCHITECTURAL INSPECTOR, Gillian Valles PA-C, Carleen Paiz, PILE DRIVER OPERATOR BARGE MOUNTED, Catie Cheema, ARCHITECTURAL INSPECTOR, Chelsea Kulkarni, ARCHITECTURAL INSPECTOR [facility] IN-PATIENT SERVICE [facility] Progress Note 06/25/2022 8:43 AM Name: Steven Walden Acct: [id number] Room: 0438/0438-01 Day: 5 Admit Date: 06/20/2022 1:58 AM [...] -598 ml Labs: Hematology: Recent Labs 06/23/22 0506/24/22 0554 06/25/22 0630 WBC 9.7 10.1 10.9 [...] 101 CO2 20 < > 22 23 23 GLUCOSE 249* -- 203* 191* 205* [...] results found for: POCPH, PHART, PH, POCPCO2, XRX6JSO, PCO2, POCPO2, PO2ART, PO2, POCHCO3, OPX1EIR, HCO3, NBEA, PBEA, BEART, BE, THGBART, THB, UTB7BOO, TUDI7ZMX, Z5OHEDON, O2SAT, FIO2 Lab Results Component Value Date/Time SPECIAL RAC 10ML 06/20/2022 03:51 AM Lab Results Component Value Date/Time CULTURE 06/20/2022 08:28 AM NO SIGNIFICANT GROWTH Identified as : VIRIDANS STREPTOCOCCUS GROUP <[id number] CFU/ML Radiology: CT ABDOMEN PELVIS WO CONTRAST [...] POA * (Principal) DAISY (acute kidney injury) (FORMERLY [facility]) 06/20/2022 Yes Acute kidney injury superimposed on CKD (HCC) 06/20/2022 Yes Chronic kidney disease 06/20/2022 Yes Type 2 diabetes mellitus with stage 3a chronic kidney disease (HCC) 06/20/2022 Yes Hyperlipidemia 06/20/2022 Yes Primary hypertension 06/20/2022 Yes Left ureteral stone 06/20/2022 Yes BRITTANY (generalized anxiety disorder) 06/20/2022 Yes Major depressive disorder, recurrent, moderate ([facility]) 06/20/2022 Yes Bandemia 06/20/2022 Yes Pyelonephritis of [...] GI prophylaxis-on Protonix Discharge planning-PT OT following. medical and health services manager to follow. Sheyla Viveros MD 06/25/2022 8:43 AM * Ace Hanson [...] stage III, used to follow up at [facility] nephrology, has not seen hris administrator in the last 6 years, with unknown [...] 3.8 3.7 CL 101 99 101 CO2 23 BUN 52* 39* 41* CREATININE 5.19* [...] Date/Time NITRU NEGATIVE 06/20/2022 08:30 AM COLORU [place] 06/20/2022 08:30 AM PHUR 5.5 06/20/2022 08:30 [...] Frazier MD, MPH, PGY-2 Internal Medicine Resident [place], [place] Attending Physician Statement I have discussed the care of Steven Walden, including pertinent history and exam findings, with the Fellow/Residentt. I have reviewed the [place] elements of all parts of the encounter with the Fellow/ Resident. I agree with the assessment, plan and orders as documented by the resident. Ace Hanson MD MD, MRCP (), FACP 06/25/2022 10:25 AM [facility] * Albertina Pitts RN - 06/24/2022 6:26 [...] of access used= CVC Right Length of wozknazcm=093 Pt completed 1st tx with no fluid [...] were not included. [facility] - Infectious diseases evaluation admission date 06/20/2022 reason for consultation: pyelonephritis Impression : Current: Left pyelonephritis Left ureteral stent for obstructing stone placed 2 weeks RAT CULTURIST Emphysematous cystitis-strep low count bandemia Bilateral nonobstructive [...] cath Ok for DC Infection Control Recommendations [place] Precautions Contact Isolation Antimicrobial Stewardship Recommendations Simplification [...] - 10.1 CRP 111 Micro: Blood culture X23 Urine culture 06/20 strep Imaging: CT abdomen [...] DILATION performed by Kevin Myles MD at [facility] OR HAND SURGERY Right 12/2021 Medications: insulin [...] Scherer MD Office: Perfect serve / office [phone] I have discussed the care of the [...] 06/24/2022 1:09 PM EDT Occupational Therapy Facility/Department: [address] ONC/MED SURG Occupational Therapy Initial Assessment Name: Steven Walden : 1960 Date of Service: 06/24/2022 Chief Complaint Patient presents with Fall Fever Flank Pain Discharge Recommendations: Patient would benefit from continued therapy after discharge OT Equipment Recommendations Equipment Needed: Yes Mobility Devices: ADL Assistive Devices ADL Assistive Devices: Toileting - Drop Arm Commode, Heavy Duty Drop Arm Commode;Federal Appellate Clerk Patient Diagnosis(es): The primary encounter diagnosis was Acute kidney injury superimposed on CKD (HCC). A diagnosis of Pyelonephritis was also pertinent to this visit. Past Medical History: has a past medical history of Anxiety, Chronic kidney disease, Congenital heart defect, Diabetes mellitus (HCC), Gout, Hyperlipidemia, Hypertension, Major depressive disorder, Morbid obesity (), Neuropathy, SHADE (obstructive sleep apnea), and Peptic [...] Ambulation Assistance: Independent Transfer Assistance: Independent Active Glass Block Bender: No Mode of Transportation: Van, Family Occupation: [...] education needed Hand Dominance Hand Dominance: Right AM-PAC Score [facility] Inpatient Daily Activity Raw Score: 17 (06/24/22 1310) [facility] Inpatient ADL T-Scale Score : 37.26 (06/24/22 1310) ADL Inpatient CMS 0-100% Score: 50.11 (06/24/22 1310) ADL Inpatient CMS G-Code Modifier : CK (06/24/221309) Goals Short [...] stage III, used to follow up at [facility] nephrology, has not seen hris administrator in the last 6 years, with unknown [...] MPV 10.9 11.1 10.4 BMP: Recent Labs 06/22/22210906/23/22 0551 06/23/22 1407 06/24/22 0554 NA 133* 136 135 137 K 4.5 4.5 4.2 3.9 CL 99 100 99 101 CO2 21 20 22 22 BUN 53* 53* -- 52* CREATININE 5.19* 5.25* -- 5.19* GLUCOSE 280* 249* -- 203* CALCIUM 8.5* 8.8 -- 8.8 BNP:No results found for: BNP PHOSPHORUS: Recent Labs 06/21/22 0830 06/22/22 0643 PHOS 4.1 5.2* MAGNESIUM: Recent Labs 06/22/22210906/23/22 0551 06/24/22 0554 MG 1.8 1.8 1.8 [...] Date/Time NITRU NEGATIVE 06/20/2022 08:30 AM COLORU [place] 06/20/2022 08:30 AM PHUR 5.5 06/20/2022 08:30 [...] Frazier MD, MPH, PGY-2 Internal Medicine Resident [facility], [place], [place] Attending Physician Statement I have discussed the care of Steven Walden, including pertinent history and exam findings, with the Fellow/Residentt. I have reviewed the [place] elements of all parts of the encounter with the Fellow/ Resident. I agree with the assessment, plan and orders as documented by the resident. Ace Hanson MD MD, MRCP (), FACP 06/24/2022 12:03 PM [facility] * Sheyla Viveros MD - 06/24/2022 7:25 AM EDT Images from the original note were not included. [facility] Office: [phone] Chris Osman DO, Terrence Johns DO, Stefani Augustin DO, Jaspreet Mosley DO, Surekha Batista MD, Adrienne Means MD, Rosales Singh MD, Caitlyn Benz MD, Abdoul Camargo MD, Cathy Farooq MD, Chepe Cordova DO, Betty Hess MD, Deja Guevara DO, April Girard MD, Arvin Maya MD, Jessica Osman DO, Shima Watsno MD, Raphael Connor MD, Jerome Simon DO, Yoselyn Thakkar MD, Codi Self MD, Gilda Sousa MD, Sheyla Viveros MD, Vikki Adorno MD, Jarocho Real DO, Krishan Vogt MD, Radha William MD, Shaunna Freitas CNP, Prabha Hauser CNP, Shirlene Dacosta CNP, Favian Ji CNP, Yesenia Espino, TEJINDER, Ema Mason, KARINA, Calista Mendez, ARCHITECTURAL INSPECTOR, Gunjan Ruiz, ARCHITECTURAL INSPECTOR, Sharon Barry, ARCHITECTURAL INSPECTOR, Sri Weiner, KARINA, Gillian Valles PA-C, Carleen Paiz, PILE DRIVER OPERATOR BARGE [place]OUNTED, Catie Cheema, KARINA, Chelsea Kulkarni, ARCHITECTURAL INSPECTOR [facility] IN-PATIENT SERVICE [facility] Progress Note 06/24/2022 7:25 AM Name: Steven Walden Acct: [id number] Room: 0438/0438-01 Day: 4 Admit Date: 06/20/2022 [...] C) Recent Labs 06/23/22 1144 06/23/22 1610 06/23/22 2038 06/24/22 0648 POCGLU 237* 242* 238* 186* [...] 0006 06/23/22 0712 06/23/22 1144 06/23/22 1610 06/23/22 2038 06/24/22 0648 LABALBU 3.0* -- -- -- -- -- -- -- POCGLU -- < > 239* 240* 237* 242* 238* 186* < > = values in this interval not displayed. ABG:No results found for: POCPH, PHART, PH, POCPCO2, CGU1MIE, PCO2, POCPO2, PO2ART, PO2, POCHCO3, PTX9QMS, HCO3, NBEA, PBEA, BEART, BE, THGBART, THB, MKI3IPY, CMJE2SUU, U6TIVLVO, O2SAT, FIO2 Lab Results Component Value Date/Time SPECIAL RAC 10ML 06/20/2022 03:51 AM Lab Results Component Value Date/Time CULTURE 06/20/2022 08:28 AM NO SIGNIFICANT GROWTH Identified as : VIRIDANS STREPTOCOCCUS GROUP <[id number] CFU/ML Radiology: CT ABDOMEN PELVIS WO CONTRAST [...] POA * (Principal) DAISY (acute kidney injury) ([facility]) 06/20/2022 Yes Acute kidney injury superimposed on CKD ([facility]) 06/20/2022 Yes Chronic kidney disease 06/20/2022 Yes [...] GI prophylaxis-on Protonix Discharge planning-PT OT following. medical and health services manager to follow. Sheyla Viveros MD 06/24/2022 [...] stage III, used to follow up at [facility] nephrology, has not seen hris administrator in the last 6 years, with unknown [...] Date/Time NITRU NEGATIVE 06/20/2022 08:30 AM COLORU [place] 06/20/2022 08:30 AM PHUR 5.5 06/20/2022 08:30 [...] from the original note were not included. [facility] Office: [phone] Chris Osman DO, Terrence Johns DO, Stefani Augustin DO, Jaspreet Mosley DO, Surekha Batista MD, Adrienne Means MD, Rosales Singh MD, Caitlyn Benz MD, Abdoul Camargo MD, Cathy Farooq MD, Chepe Cordova DO, Betty Hess MD, Deja Guevara DO, April Girard [...] Ji CNP, Yesenia Espino, TEJINDER, Ema Mason, ARCHITECTURAL INSPECTOR, Calista Mendez, ARCHITECTURAL INSPECTOR, Gunjan Ruiz, ARCHITECTURAL INSPECTOR, Sharon Barry, ARCHITECTURAL INSPECTOR, Sri Weiner, ARCHITECTURAL INSPECTOR, Gillian Valles PA-C, Carleen Paiz, SARA, Catie Cheema, KARINA, Chelsea Kulkarni, KARINA [facility] IN-PATIENT SERVICE [facility] Progress Note 06/23/2022 8:44 AM Name: Steven Walden Acct: [id number] Room: Day: 3 Admit Date: 06/20/2022 1:58 [...] results found for: POCPH, PHART, PH, POCPCO2, VXM5GCF, PCO2, POCPO2, PO2ART, PO2, POCHCO3, BZJ1QLR, HCO3, NBEA, PBEA, BEART, BE, THGBART, THB, XYN7VSH, IKTH0OVV, J7UGXYHB, O2SAT, FIO2 Lab Results Component Value Date/Time SPECIAL RAC 10ML 06/20/2022 03:51 AM Lab Results Component Value Date/Time CULTURE 06/20/2022 08:28 AM NO SIGNIFICANT GROWTH Identified as : VIRIDANS STREPTOCOCCUS GROUP <[id number] CFU/ML Radiology: CT ABDOMEN PELVIS WO CONTRAST [...] POA * (Principal) DAISY (acute kidney injury) ([facility]) 06/20/2022 Yes Acute kidney injury superimposed on CKD ([facility]) 06/20/2022 Yes Chronic kidney disease 06/20/2022 Yes Type 2 diabetes mellitus with stage 3a chronic kidney disease ([facility]) 06/20/2022 Yes Hyperlipidemia 06/20/2022 Yes Primary hypertension 06/20/2022 Yes Left ureteral stone 06/20/2022 Yes BRITTANY (generalized anxiety disorder) 06/20/2022 Yes Major depressive disorder, recurrent, moderate ([facility]) 06/20/2022 Yes Bandemia 06/20/2022 Yes Pyelonephritis of [...] GI prophylaxis-on Protonix Discharge planning-PT OT eval. medical and health services manager to follow. Sheyla Viveros MD 06/23/2022 [...] be excellent, 8200 mL an hour. Today haris has about 1.2 L of urine sincemorning. [...] stage III, used to follow up at [facility] nephrology, has not seen hris administrator in the last 6 years, with unknown [...] Date/Time NITRU NEGATIVE 06/20/2022 08:30 AM COLORU [place] 06/20/2022 08:30 AM PHUR 5.5 06/20/2022 08:30 [...] Frazier MD, MPH, PGY-2 Internal Medicine Resident [place], [place] Patient seen with resident. Known history [...] 8:58 AM EDT [facility] - Infectious diseases evaluation admission date 06/20/2022 reason for consultation: pyelonephritis Impression : Current: Left pyelonephritis Left ureteral stent for obstructing stone placed 2 weeks RAT CULTURIST Emphysematous cystitis-strep low count bandemia Bilateral nonobstructive [...] cultures- disc w daughter Infection Control Recommendations [place] Precautions Contact Isolation Antimicrobial Stewardship Recommendations Simplification [...] DILATION performed by Kevin Myles MD at [facility] OR HAND SURGERY Right 12/2021 Medications: senna [...] BMP: Recent Labs 06/21/22 0830 06/21/22 1432 06/21/226 06/22/22 0643 NA 126* < > 129* 133* K 5.1 < > 4.4 4.3 CL 93* < > 96* 98 CO2 16* < > 18* 20 BUN 51* < > 50* 53* CREATININE 4.50* < > 5.13* 5.19* MG 1.7 -- -- 1.8 < > = values in this interval not displayed. Hepatic Function Panel: Recent Labs 06/20/22 03306/21/22 0830 PROT 7.8 -- LABALBU 3.5 3.0* [...] Chela Gonsalves Office: Perfect serve / office [phone] I have discussed the care of the [...] from the original note were not included. [facility] Office: [phone] Chris Osman DO, Terrence Johns DO, Stefani Augustin DO, Jaspreet Mosley DO, Surekha Batista MD, Adrienne Means MD, Rosales Singh MD, Caitlyn Benz MD, Abdoul Camargo MD, Cathy Farooq MD, Chepe Cordova DO, Betty Hess MD, Deja Guevara DO, April Girard MD, Arvin Maya MD, Jessica Osman DO, Shima Watson MD, Raphael Connor MD, Jerome Simon DO, Yoselyn Thakkar MD, Codi Self MD, Gilda Sousa MD, Sheyla Viveros MD, Vikki Adorno MD, Jarocho Real DO, Krishan Vogt MD, Radha William MD, Shaunna Freitas CNP, Prabha Hauser CNP, Shirlene Dacosta, ARCHITECTURAL INSPECTOR, Favian Ji, ARCHITECTURAL INSPECTOR, Yesenia Espino, TEJINDER, Ema Mason, ARCHITECTURAL INSPECTOR, Calista Mendez, KARINA, Gunjan Ruiz CNP, Sharon Barry ARCHITECTURAL INSPECTOR, Sri Weiner ARCHITECTURAL INSPECTOR, THANH Sosa-C, Carleen Paiz, PILE DRIVER OPERATOR BARGE [place]OUNTED, Catie Cheema, ARCHITECTURAL INSPECTOR, Chelsea Kulkarni, ARCHITECTURAL INSPECTOR [facility] IN-PATIENT SERVICE [facility] Progress Note 06/22/2022 8:52 AM Name: Steven Walden Acct: [id number] Room: [facility] Day: 2 Admit Date: 06/20/2022 1:58 AM [...] following.. Patient is continued on Zyvox at [facility] for UTI. Her kidney function continue [...] day insulin lispro 0-8 Units SubCUTAneous TID insulin lispro 0-4 Units SubCUTAneous Nightly piperacillin-tazobactam [...] -- -- -- -- Recent Labs 06/20/22 0331 06/20/22 0905 06/20/22200806/21/22 0707 06/21/22 0830 06/21/22 1121 [...] results found for: POCPH, PHART, PH, POCPCO2, VWG3LZL, PCO2, POCPO2, PO2ART, PO2, POCHCO3, SJR0ZYB, HCO3, NBEA, PBEA, BEART, BE, THGBART, THB, [id number], XTEQ0RPC, N8FIMIFZ, O2SAT, FIO2 Lab Results Component Value Date/Time [...] POA * (Principal) DAISY (acute kidney injury) (FORM[facility]LY [facility]) 06/20/2022 Yes Acute kidney injury superimposed on CKD ([facility]) 06/20/2022 Yes Chronic kidney disease 06/20/2022 Yes Type 2 diabetes mellitus with stage 3a chronic kidney disease ([facility]) 06/20/2022 Yes Hyperlipidemia 06/20/2022 Yes Primary hypertension 06/20/2022 Yes Left ureteral stone 06/20/2022 Yes BRITTANY (generalized anxiety disorder) 06/20/2022 Yes Major depressive disorder, recurrent, moderate ([facility]) 06/20/2022 Yes Bandemia 06/20/2022 Yes Pyelonephritis of [...] GI prophylaxis-on Protonix Discharge planning-PT OT eval. medical and health services manager to follow. Sheyla Viveros MD 06/22/2022 8:52 AM * Fanny Del Rosario, PT - 06/21/2022 12:35 PM EDT Physical Therapy Facility/Department: [facility] RENAL//MED SURG Physical Therapy Initial Assessment Name: [...] Ambulation Assistance: Independent Transfer Assistance: Independent Active Glass Block Bender: No Mode of Transportation: Van, Family Occupation: [...] assess- pt seated in bedside chair upon promotion writer's exit) Bed Mobility Comments: Assist provided [...] AM-PAC Inpatient Mobility Raw Score : 16 (06/21/22 123) AM-PAC Inpatient T-Scale Score : 40.78 (06/21/22 123) Mobility Inpatient CMS 0-100% Score: 54.16 (06/21/22 [facility]) Mobility Inpatient CMS G-Code Modifier : CK (06/21/221233) Goals Short [...] from the original note were not included. [facility] Office: [phone] Chris Osman DO, Terrence Johns DO, Stefani Augustin DO, Jaspreet Mosley DO, Surekha Batista MD, Adrienne Means MD, Rosales Singh MD, Caitlyn Benz MD, Abdoul Camargo MD, Cathy Farooq MD, Chepe Cordova DO, Betty Hess MD, Deja Guevara DO, April Girard MD, Arvin Maya MD, Jessica Osman DO, Shima Watson MD, Raphael Connor MD, Jerome Simon DO, Yoselyn Thakkar MD, Codi Self MD, Gilda Sousa MD, Sheyla Viveros MD, Vikki Adorno MD, Jarocho Real DO, Krishan Vogt MD, Radha William MD, Shaunna Freitas, ARCHITECTURAL INSPECTOR, Prabha Hauser, ARCHITECTURAL INSPECTOR, Shirlene Dacosta, ARCHITECTURAL INSPECTOR, Favian Ji, ARCHITECTURAL INSPECTOR, Yesenia Espino, DNP, Ema Mason, ARCHITECTURAL INSPECTOR, Calista Mendez, ARCHITECTURAL INSPECTOR, Gunjan Ruiz, ARCHITECTURAL INSPECTOR, Sharon Barry, ARCHITECTURAL INSPECTOR, Sri Weiner, ARCHITECTURAL INSPECTOR, Gillian Valles PA-C, Carleen Paiz, PILE DRIVER OPERATOR BARGE [place]OUNTED, Catie Cheema, ARCHITECTURAL INSPECTOR, Chelsea Kulkarni, ARCHITECTURAL INSPECTOR [facility] IN-PATIENT SERVICE [facility] Progress Note 06/21/2022 10:30 AM Name: Steven Walden Acct: [id number] Room: 0317/0317-01 Day: 1 Admit Date: 06/20/2022 1:58 AM [...] Net -2975 ml Labs: Hematology: Recent Labs 06/20/2233006/21/22 0830 WBC 12.7* 8.0 RBC 4.51 4.92 HGB 13.7 15.2 HCT 42.2 43.7 MCV 93.6 88.8 MCH 30.4 30.9 MCHC 32.5 34.8 RDW 13.8 13.7 PLT 199 147 MPV 11.1 10.4 Chemistry: Recent Labs 06/20/2233006/20/22 0429 06/21/22 0830 NA 128* 127* 126* K 4.3 4.3 5.1 CL 92* 93* 93* CO2 19* 15* 16* GLUCOSE 145* 152* 283* BUN 47* 49* 51* CREATININE 3.64* 3.65* 4.50* MG -- -- 1.7 ANIONGAP 17 19* 17 LABGLOM 18* 18* 14* CALCIUM 9.1 9.0 8.6 PHOS -- -- 4.1 TROPHS 52* 51* -- Recent Labs 06/20/22 03306/20/22 0905 06/20/22 11506/20/22161106/20/22200806/21/22 0707 06/21/22 0830 PROT 7.8 -- -- [...] results found for: POCPH, PHART, PH, POCPCO2, EXN1GAN, PCO2, POCPO2, PO2ART, PO2, POCHCO3, XTQ1KAE, HCO3, NBEA, PBEA, BEART, BE, THGBART, THB, DTP5GDS, KHIP7OZC, V6ZLSGII, O2SAT, FIO2 Lab Results Component Value Date/Time [...] POA * (Principal) DAISY (acute kidney injury) (FORM[facility]LY [facility]) 06/20/2022 Yes Acute kidney injury superimposed on CKD ([facility]) 06/20/2022 Yes Chronic kidney disease 06/20/2022 Yes [...] were not included. [facility] - Infectious diseases evaluation admission date 06/20/2022 reason for consultation: pyelonephritis Impression : Current: Left pyelonephritis Left ureteral stent for obstructing stone placed 2 weeks RAT CULTURIST Emphysematous cystitis bandemia Bilateral nonobstructive kidney stones Diabetes mellitus, CKD 3, obesity Discussion / summary of stay / plan of care Recommendations Pending blood cultures and urine culture continue Zosyn, switch to Zyvox from vancomycin to protect the kidney Adjust antibiotics to final cultures- disc w daughter Infection Control Recommendations [place] Precautions Contact Isolation Antimicrobial Stewardship Recommendations Simplification [...] DILATION performed by Kevin Myles MD at [facility] OR HAND SURGERY Right 12/2021 Medications: senna [...] Chela Gonsalves Office: Perfect serve / office [phone] I have discussed the care of the [...] 3.64* 3.65* Recent Labs 06/20/22 0830 COLORU Gloster* PHUR 5.5 WBCUA 5 TO 10 RBCUA [...] MD 6:57 AM 06/21/2022 * Chrissie Medrano [facility] - 06/20/2022 9:04 AM EDT [facility] Pharmacokinetic Monitoring Service - Vancomycin [...] 06/20/2022 9:02 AM documented in this [facility] Work Phone: 1(444) 258-807803-22-2023 Hospital course Narrative* Betty Hess MD - 06/30/2022 11:06 AM EDT Images from the original note were not included. [facility] Office: [phone] Chris Osman DO, Terrence Johns DO, Stefani Augustin DO, Jaspreet Mosley DO, Surekha Batista MD, Adrienne Means MD, Rosales Singh MD, Caitlyn Benz MD, Abdoul Camargo MD, Cathy Farooq MD, Chepe Cordova DO, Betty Hess MD, Deja Guevara DO, April Girard MD, Arvin Maya MD, Jessica Osman DO, Shima Watson MD, Raphael Connor MD, Jerome Simon DO, Yoselyn Thakkar MD, Codi Self MD, Gilda Sousa MD, Sheyla Viveros MD, Vikki Adorno MD, Jraocho Real DO, Krishan Vogt MD, Radha William MD, Shaunna Freitas, ARCHITECTURAL INSPECTOR, Prabha Hauser ARCHITECTURAL INSPECTOR, Shirlene Dacosta ARCHITECTURAL INSPECTOR, Favian iJ, ARCHITECTURAL INSPECTOR, Yseenia Espino, [facility], Ema Mason, ARCHITECTURAL INSPECTOR, Calista Mendez, ARCHITECTURAL INSPECTOR, Gunjan Ruiz, [facility], Sharon Barry, ARCHITECTURAL INSPECTOR, Sri Weiner, [facility], Gillian Valles PA-C, Carleen Paiz, [facility], Catie Cheema, [facility], Chelsea Kulkarni, [facility] IN-PATIENT SERVICE [facility] Discharge Summary Patient ID: Steven Walden : 1960 ACCOUNT: [id number] Patient's PCP: Darion Randle MD Admit Date: 06/20/2022 Discharge Date: 06/30/2022 Length of Stay: 10 Code Status: Full Code Admitting Physician: Sheyla Viveros MD Discharge Physician: Betty Hess MD Active Discharge Diagnoses: Hospital Problem [...] REMOVAL, STONE BASKETING Surgeon(s): Kevin Myles MD Physician Relations Representative: * No surgical staff found * Anesthesia: [...] Physician Follow Up: Kevin Myles MD [address] [facility] [id number] Follow up in 6 week(s) for stone fu Darion Randle MD [address] [facility] [address] [facility] [address] Follow up Yo Batista MD [address] [facility] [id number] Follow up Requiring Further Evaluation/Follow Up POST [...] per protocol CONTINUE taking these medications Handicap Placard Misc by Does not apply route Duration: [...] capsule by mouth daily Vitamin D (Ergocalciferol) 89182 units Caps Take 50,000 Units by mouth [...] plan and follow up. Electronically signed by Betty Hess MD 06/30/2022 11:[address] Darion Randle MD for the opportunity to be involved in this patient's care. documented in this encounter[email or web address] Phone: 1(349) 365-361603-21-2023 Hospital Discharge instructions* Discharge Instructions* Miles Mitchell MD - 06/29/2022 10:14 AM EDT Follow up with urology in [address] Myles. Call to confirm appt * Discharge Instr - SHAYNE* Betty Hess MD - 06/29/2022 5:05 PM EDT [...] directive for healthcare treatment Durable power of corporate attorney for health care;Health care treatment directive No, copy requested from family -- Umm Win [phone] Admitting Physician: Sheyla Viveros MD PCP: Darion Randle MD Discharging Nurse: Discharging Hospital Unit/Room#: 0438/0438-01 Discharging Unit Phone Number: Emergency Contact: Extended Emergency Contact Information Primary Emergency Contact: Umm Walden Mobile Relation: Spouse Preferred language: Paraguayan Switching Operator needed? No Secondary Emergency Contact: Racheal Walden [employer] Relation: Child Preferred language: Paraguayan Switching Operator needed? No Past Surgical History: Past Surgical History: Procedure Laterality Date CHOLECYSTECTOMY 2011 CYSTOSCOPY Left 05/28/2022 CYSTOSCOPY, URETERAL STENT INSERTION, URETHRAL DILATION performed by Kevin Myles MD at [facility] OR CYSTOSCOPY Left 06/29/2022 CYSTOSCOPY, URETEROSCOPY, LEFT STENT REMOVAL, STONE BASKETING (Left) CYSTOSTOMY W/ STENT INSERTION Left 06/29/2022 Stent exchange HAND SURGERY Right 12/2021 IR TUNNELED CATHETER PLACEMENT GREATER THAN 5 YEARS 06/28/2022 IR TUNNELED CATHETER PLACEMENT GREATER THAN 5 YEARS 06/28/2022 Gillian [facility]ista MD [facility] Immunization History: Immunization History Administered Date(s) Administered COVID-19, J&J, (age 18y+), IM, 0.5 mL 09/04/2020 Active Problems: Patient Active Problem List Diagnosis Code DAISY (acute kidney injury) ([facility]) N17.9 Acute kidney injury superimposed on CKD ([facility]) N17.9, N18.9 Chronic kidney disease N18.9 Type 2 diabetes mellitus with stage 3a chronic kidney disease ([facility]) E11.22, N18.31 Hyperlipidemia E78.5 Primary hypertension I10 Urinary tract obstruction by kidney stone N20.0, N13.8 Hydronephrosis of left kidney N13.30 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 Left ureteral stone N20.1 Debility R53.81 BRITTANY (generalized anxiety disorder) F41.1 Major depressive disorder, recurrent, moderate ([facility]) F33.1 Tremor R25.1 Bandemia D72.825 Pyelonephritis N12 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 Hyponatremia E87.1 Dependence on renal dialysis ([facility]) Z99.2 Metabolic acidosis E87.20 Isolation/Infection: Isolation No [...] (153.5 kg) Mental Status: {IP PT MENTAL STATUS:90377} IV Access: { SHAYNE IV ACCESS:333606242} Nursing Mobility/ADLs: Walking {CHP DME ADLs:749928556} Transfer {CHP DME ADLs:156701019} Bathing {CHP DME ADLs:503632449} Dressing {CHP DME ADLs:758958170} Toileting {CHP DME ADLs:703994923} Feeding {CHP DME ADLs:066675066} Data Warehousing Architect {CHP DME ADLs:310844321} Med Delivery { SHAYEN MED Delivery:551073560} Wound Care Documentation and Therapy: Elimination: Continence: Bowel: {YES / NO:} Bladder: {YES / NO:} Urinary Catheter: {Urinary Catheter:880314739} Colostomy/Ileostomy/Ileal Conduit: {YES / NO:} Date of Last BM: Intake/Output Summary (Last 24 hours) at 06/29/2022 1704 Last data filed at 06/29/2022 1001 Gross per 24 hour Intake 300 ml Output 1300 ml Net -1000 ml I/O last 3 completed shifts: In: 120 [P.O.:120] Out: 2124 [Urine:2124] Safety Concerns: { SHAYNE Safety Concerns:062624695} Impairments/Disabilities: { SHAYNE Impairments/Disabilities:664575173} Nutrition Therapy: Current Nutrition Therapy: { SHAYNE Diet List:241272562} Routes of Feeding: {[facility] DME Other Feedings:928780798} Liquids: {Desk Top Publisher liquid thickness:27518} Daily Fluid Restriction: {CHP DME Yes amt example:572831208} Last Modified Barium Swallow with Video (Video Swallowing Test): {Done Not Done Date:} Treatments at the Time of Hospital Discharge: Respiratory Treatments: Oxygen Therapy: {Therapy; copd oxygen:80404} Ventilator: { CC Vent List:413173368} Rehab Therapies: {THERAPEUTIC INTERVENTION:0021133724} Weight Bearing Status/Restrictions: { CC Weight Bearin} Other Medical Equipment (for information only, NOT a DME order): {EQUIPMENT:817513322} Other Treatments: Patient's personal belongings (please select all that are sent with patient): {CHP DME Belongings:958927989} RN SIGNATURE: {Esignature:179592847} CASE MANAGEMENT/SOCIAL WORK SECTION Inpatient Status Date: Readmission Risk Assessment Score: Readmission Risk Risk of Unplanned Readmission: 29 Discharging to Facility/ Agency Name: Address: Phone: Fax: Dialysis Facility (if applicable) Name: Address: Dialysis Schedule: Phone: Fax: [employer]Retail Consultant signature: {Esignature:172652876} PHYSICIAN SECTION Prognosis: Guarded Condition at Discharge: [...] H&P PHYSICIAN SIGNATURE: documented [facility] Phone: 1(112) 686-544003-20-2023 NotePROCEDURE: ULTRASOUND GUIDED VASCULAR ACCESS. FLUOROSCOPY GUIDED [...] the infraclavicular region and a tunneled 14 Greek x 28 cm split cath tunneled dialysis [...] Interpreted by: Gillian Batista MD Signed by: iGllian Batista MD 06/28/22 [facility] NotePROCEDURE: ULTRASOUND GUIDED VASCULAR ACCESS. FLUOROSCOPY GUIDED [...] the procedure including risks, benefits, and alternatives. [place] protocol was observed using maximum sterile barrier [...] the needle was removed and a 5 Greek sheath was placed. The microwire was exchanged for an 0.035 stiff glide wire, and the tract was serially dilated up to 12 Greek; attempted dilation up to 14 Greek was initially unsuccessful. A 0.035 stiff Glidewire was exchanged for a 0.035 Amplatz wire, and the vessel was dilated with a 14 Greek vessel dilator. Subsequently this allowed for accommodation of a 14 Greek by 20 cm non tunneled Schon hemodialysis [...] Signed by: Jessica Bolivar MD 06/24/22 [facility]23 History of Present illness Narrative* Gunjan [...] were not included. ACUTE INPATIENT REHABILITATION DISCHARGE [facility] Patient Name: Steven Walden Patient discharged in [...] with patient as mentioned on AVS. Patient/responsible alliance party verbalize understanding of discharge plan and are in agreement with goal/plan/treatment preferences. Belongings including Glasses, C=PAP, clothes, cell phone and adoption coordinator sent with patient/responsible alliance party. Home medications sent home with patient/responsible alliance party N/A Car Transfer Level of assistance required [...] strengthening, endurance, ADLs, and self care. Has [place] prn pain/has not been using discharge plan [...] used Xanax SHADE: has home CPAP at . Panic [...] medical management DC 06/11 okay with internal medicine/xvballdkch-lpyprz-vg with 1. PCPDarion Randle MD 2. Neurology - Marg[place] 3. [...] anxiety Interval History: The patient was seen [id number]. We discussed that neurology had recommended weaning [...] 2.50 1.0 - 4.8 k/uL Final Absolute Becker # 06/05/2022 0.83 0.1 - 1.3 k/uL [...] from the original note were not included. [facility] Neurology Specialist [address] [place] [address] [place] [address] PH: [phone] or [phone] FAX: [phone] Brief history: Steven Walden is a 62 [...] EAG 160 05/30/2022 No results found for: [id number] Neurological work up: Study Finding CT head [...] Mcdaniel RN - 06/10/2022 4:06 PM EST Franchise Sales Director resumed care of patient at this time * Sahra Dumont - 06/10/2022 1:11 PM EST 06/10/22 1045 Encounter Summary Encounter Overview/Reason Spiritual/Emotional Needs Service Provided For: Patient Referral/Consult From: Ver[employer] System Spouse;Family members Last Encounter 06/10/22 Complexity of Encounter Low Begin Time 1045 End Time 1100 Total Time Calculated 15 min Spiritual/Emotional needs Type Spiritual Support Assessment/Intervention/Outcome Assessment Calm;Coping Intervention Active listening;Discussed illness injury and it s impact;Explored/Affirmed feelings, thoughts, concerns;Prayer (assurance of)/Parks;Sustaining Presence/Ministry of presence Outcome Coping;Engaged in conversation;Expressed [...] strengthening, endurance, ADLs, and self care. Has [place] prn pain discharge plan 06/11 Carballo removed [...] used Xanax SHADE: has home CPAP at . Panic [...] medical management DC 06/11 okay with internal medicine/nqmwzlzilr-wvdgpf-pn with 1. Yoana Randle MD 2. Neurology - Margarito 3. Urology 4. Psychiatry- Gisele Foster wean 5. Nephrology Dr. Triplett 1-2 weeks, [...] anxiety Interval History: The patient was seen [id number]. He is sitting out of bed in [...] 2.50 1.0 - 4.8 k/uL Final Absolute Becker # 06/05/2022 0.83 0.1 - 1.3 k/uL [...] in voice recognition technology. * Joelle Burks, RAT CULTURIST - 06/09/2022 3:33 PM EST Physical Therapy Facility/Department: [facility] Rehabilitation Physical Therapy Progress Note NAME: Steven Walden : 1960 (62 y.o.) CODE STATUS: Full Code Date of Service: 06/09/22 Additional Pertinent Hx: Steven Walden is a 62 y.o. male with history of HTN, HLD, diabetes, CKD, peptic ulcer, gout, and depression admitted to [facility] on 05/28/2022. He initially presented to [facility] with flank pain and fever for [...] on ramp 50 ft x 2, CGA Penitentiary Goals Time Frame for Cleaning Professional Goals : By DC Cleaning Professional Goal 1: Mod-I transfers Penitentiary Goal 2: Mod-I gait withleast restricitive device distance of 150 ft on level as well as incline surfaces. Cleaning Professional Goal 3: Pt able to go up and down 8 to 12 steps with 1 UE support at supervision level. Penitentiary Goal 4: Improve 2MWT distance to atleast 150 ft to improve activity tolerance and gait speed. Penitentiary Goal 5: 5 X sit<>stand without UE [...] from the original note were not included. [facility] Neurology Specialist [address] [place] [address] PH: [phone] or [phone] FAX: [phone] Brief history: Steven Walden is a 62 [...] EAG 160 05/30/2022 No results found for: [id number] Neurological work up: Study Finding CT head [...] SANCHEZ Saba - 06/09/2022 3:25 PM EST [facility] Occupational Therapy Daily Treatment Note Date: 06/09/22 Patient Name: Steven Walden Room: 2609/2609-01 Account: [id number] : 1960 (62 y.o.) Gender: male Referring Practitioner: Sachin Mckeon MD Diagnosis: Debility Treatment Diagnosis: Impaired self-care status. Past Medical History: has a past medical history of Anxiety, Chronic kidney disease, Congenital heart defect, Diabetes mellitus (HCC), Gout, Hyperlipidemia, Hypertension, Major depressive disorder, Morbid obesity ([facility]), Neuropathy, SHADE (obstructive sleep apnea), and Peptic [...] needed OT Equipment Recommendations ADL Assistive Devices: Federal Appellate Clerk;Sock-Aid Hard;Long-handled Shoe Horn Safety Devices Safety Devices [...] promote increased independence with self-care and mobility Cleaning Professional Goals Time Frame for Penitentiary Goals : By discharge Penitentiary Goal 1: Patient will perform BADLs with modified independence and Good safety. Cleaning Professional Goal 2: Patient will perform functional mobility and transfers during self-care with modified independence, least restrictive mobility device, and good safety. Cleaning Professional Goal 3: Patient will stand for 10+ minutes with 0-1 UE support, modified independence, and no LOB while engaging functional activity of choice. Cleaning Professional Goal 4: Patient will perform simple meal prep (i.e. breakfast sandwich) with modified independence. Penitentiary Goal 5: Patient will perform pet care (i.e. feeding his dog Pumpkin, taking her outside on leash) with stand by assist. Penitentiary Goal 6: Patient will perform self-care with improved bilateral fine motor control as evidenced by bilateral 5 second improvement in 9 hole peg test. Penitentiary Goal 7: Patient will perform self-care with improved R hand service agent strength as evidenced by10# improvement in dynamometer test score. Plan Occupational Therapy Plan Times Per Week: 5-7 Times Per Day: Twice a day Current Treatment Recommendations: Self-Care / ADL, Home management training, Strengthening, Balance training, Functional mobility training, Endurance training, Safety education & training, Patient/Caregiver education & training, Equipment evaluation, education, & procurement 06/09/22 0906/09/22 1332 OT Individual Minutes Time In 0800 [...] strengthening, endurance, ADLs, and self care. Has [place] prn pain discharge plan 06/11 Carballo removed [...] management DC 3/3 if okay with internal medicine/ikhrqvphon-yehykk-zb with 1. PCP 2. Neurology 3. Urology [...] can be extrapolated by contextual diversion * BRODIE Stevenson CNP - 06/08/2022 9:14 PM EST Department of [...] 2.50 1.0 - 4.8 k/uL Final Absolute Becker # 06/05/2022 0.83 0.1 - 1.3 k/uL [...] strengthening, endurance, ADLs, and self care. Has [place] prn pain discharge plan 06/11 Carballo removed [...] Internal medicine for medical management DC 06/11 if okay with internal medicine/mqwotwvqwk-ivajnq-ox with 1. PCP 2. Neurology 3. Urology [...] from the original note were not included. [facility] Neurology Specialist [address] [facility] [address] [place] [address] PH: [phone] or [phone] FAX: [phone] Brief history: Steven Walden is a 62 [...] EAG 160 05/30/2022 No results found for: [id number] Neurological work up: Study Finding CT head [...] 06/08/2022 3:36 PM EST Physical Therapy Facility/Department: [facility] Rehabilitation Physical Therapy Progress Note NAME: Steven Walden : 1960 (62 y.o.) CODE STATUS: Full Code Date of Service: 06/08/22 Additional Pertinent Hx: Steven Walden is a 62 y.o. male with history of HTN, HLD, diabetes, CKD, peptic ulcer, gout, and depression admitted to [facility] on 05/28/2022. He initially presented to [facility] with flank pain and fever for [...] on ramp 50 ft x 2, CGA Cleaning Professional Goals Time Frame for Cleaning Professional Goals : By DC Cleaning Professional Goal 1: Mod-I transfers Cleaning Professional Goal 2: Mod-I gait withleast restricitive device distance of 150 ft on level as well as incline surfaces. Cleaning Professional Goal 3: Pt able to go up and down 8 to 12 steps with 1 UE support at supervision level. Penitentiary Goal 4: Improve 2MWT distance to atleast 150 ft to improve activity tolerance and gait speed. Cleaning Professional Goal 5: 5 X sit<>stand without UE [...] 06/07/2022 3:31 PM EST Physical Therapy Facility/Department: [facility] Rehabilitation Physical Therapy Progress Note NAME: Steven Walden : 1960 (62 y.o.) CODE STATUS: Full Code Date of Service: 06/07/22 Additional Pertinent Hx: Steven Walden is a 62 y.o. male with history of HTN, HLD, diabetes, CKD, peptic ulcer, gout, and depression admitted to [facility] on 05/28/2022. He initially presented to [facility] with flank pain and fever for [...] on ramp 50 ft x 2, CGA Cleaning Professional Goals Time Frame for Cleaning Professional Goals : By DC Penitentiary Goal 1: Mod-I transfers Penitentiary Goal 2: Mod-I gait withleast restricitive device distance of 150 ft on level as well as incline surfaces. Penitentiary Goal 3: Pt able to go up and down 8 to 12 steps with 1 UE support at supervision level. Cleaning Professional Goal 4: Improve 2MWT distance to atleast 150 ft to improve activity tolerance and gait speed. Penitentiary Goal 5: 5 X sit<>stand without UE [...] Out 1102 1442 Minutes 60 35 Joelle Burks, FAM, 06/07/22 at 3:31 PM * Marcus Yepez [...] strengthening, endurance, ADLs, and self care. Has [place] prn pain Carballo removed 06/02 on Keflex [...] 06/06/2022 3:16 PM EST Physical Therapy Facility/Department: [facility] Rehabilitation Physical Therapy Daily Treatment [...] DILATION performed by Kevin Myles MD at [facility] OR HAND SURGERY Right 12/2021 Patient assessed [...] BLE exs x 15-20. 2# cuffs and akutan tband Circulation/Endurance Exercises: UBE 4' FWD/RETRO Dynamic [...] on ramp 50 ft x 2, CGA Penitentiary Goals Time Frame for Penitentiary Goals : By DC Cleaning Professional Goal 1: Mod-I transfers Penitentiary Goal 2: Mod-I gait withleast restricitive device distance of 150 ft on level as well as incline surfaces. Cleaning Professional Goal 3: Pt able to go up and down 8 to 12 steps with 1 UE support at supervision level. Penitentiary Goal 4: Improve 2MWT distance to atleast 150 ft to improve activity tolerance and gait speed. Cleaning Professional Goal 5: 5 X sit<>stand without UE [...] 0859 1407 Minutes 59 33 Cathy Bai, RAT CULTURIST, 06/06/22 at 3:16 PM * Jose Raul Krause - 06/06/2022 1:42 PM EST [facility] PROGRESS NOTE Room # 2609/2609-01 Name: Steven Walden Reason for visit: nurse referred I visited the patient. Admit Date & Time: 06/04/2022 8:44 PM Assessment: Steven Walden is a 62 y.o. male in the hospital because debility. Upon entering the room pt was sitting in chair Intervention: I introduced myself and my title as hydro excavation operator I offered space for pt to express feelings, needs, andconcerns and provided a ministry presence. Pt shared about his recent health challenges. Pt also shared about his family. Pt has good support from family. This promotion writer engaged in conversation w/ pt actively listening to pt and providing emotional support. Pt appeared to be coping Outcome: Pt expressed gratitude for this hydro excavation operator visit Plan: Chaplains will remain available to offer spiritual and emotional support as needed. . Spiritual Care Department [facility] 06/06/22 1340 Encounter Summary Service Provided For: [...] Johns, OT - 06/06/2022 12:51 PM EST [facility] Occupational Therapy Daily Treatment Note Date: 06/06/22 Patient Name: Steven Walden Room: 2609/2609-01 Account: [id number] : 1960 (62 y.o.) Gender: male Referring [...] promote increased independence with self-care and mobility Cleaning Professional Goals Time Frame for Penitentiary Goals : By discharge Cleaning Professional Goal 1: Patient will perform BADLs with modified independence and Good safety. Penitentiary Goal 2: Patient will perform functional mobility and transfers during self-care with modified independence, least restrictive mobility device, and good safety. Penitentiary Goal 3: Patient will stand for 10+ minutes with 0-1 UE support, modified independence, and no LOB while engaging functional activity of choice. Penitentiary Goal 4: Patient will perform simple meal prep (i.e. breakfast sandwich) with modified independence. Penitentiary Goal 5: Patient will perform pet care (i.e. feeding his dog Pumpkin, taking her outside on leash) with stand by assist. Cleaning Professional Goal 6: Patient will perform self-care with improved bilateral fine motor control as evidenced by bilateral 5 second improvement in 9 hole peg test. Penitentiary Goal 7: Patient will perform self-care with improved R hand service agent strength as evidenced by10# improvement in dynamometer [...] self care. On Keflex until 06/09/22. Has [place] prn pain DAISY on CKD III: Will [...] Effexor, Lamictal. SHADE: has home CPAP at hs. Panic [...] 4:[address] Gordon notified per margasershaye in regards to consult. * Joelle Burks PTA - 06/05/2022 4:20 PM EST Physical Therapy Facility/Department: [facility] Rehabilitation Physical Therapy Progress Note NAME: Steven Walden : 1960 (62 y.o.) CODE STATUS: Full Code Date of Service: 06/05/22 Additional Pertinent Hx: Steven Walden is a 62 y.o. male with history of HTN, HLD, diabetes, CKD, peptic ulcer, gout, and depression admitted to [facility] on 05/28/2022. He initially presented to [facility] with flank pain and fever for 2 days. He was found to have obstructing kidney stone andAKI. He underwent urethral dilation, cystoscopy, left ureteral stent insertion, and difficult foleycatheter insertion on 05/28/22 (Dr. Myels). He reports tremors in all limbs, which [...] on ramp 50 ft x 2, CGA Penitentiary Goals Time Frame for Cleaning Professional Goals : By DC Cleaning Professional Goal 1: Mod-I transfers Penitentiary Goal 2: Mod-I gait withleast restricitive device distance of 150 ft on level as well as incline surfaces. Penitentiary Goal 3: Pt able to go up and down 8 to 12 steps with 1 UE support at supervision level. Cleaning Professional Goal 4: Improve 2MWT distance to atleast 150 ft to improve activity tolerance and gait speed. Cleaning Professional Goal 5: 5 X sit<>stand without UE support in < 20 seconds to improve fluidity for transfers/mobility residential goal 6: Improve Tinetti balance score to [...] 1451 Time Out 1524 Minutes 33 Joelle Burks, RAT CULTURIST, 06/05/22 at 4:21 PM * Virginia Caceres, PT - 06/05/2022 1:22 PM EST Physical Therapy Facility/Department: [facility] Rehabilitation Physical Therapy Initial Assessment [...] Laterality Date CHOLECYSTECTOMY 2010 CYSTOSCOPY Left 05/28/2022 w/stent CYSTOSCOPY Left 05/28/2022 CYSTOSCOPY, URETERAL STENT INSERTION, URETHRAL DILATION performed by Kevin Myles MD at [facility] OR HAND SURGERY Right 12/2021 Chart Reviewed: Yes Patient assessed for rehabilitation services?: Yes Additional Pertinent Hx: Steven Walden is a 62 y.o. male with history of HTN, HLD, diabetes, CKD, peptic ulcer, gout, and depression admitted to [facility] on 05/28/2022. 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 Penitentiary Goal 3: Pt able to go up and down 8 to 12 steps with 1 UE support at supervision level. Penitentiary Goal 4: Improve 2MWT distance to atleast 150 ft to improve activity tolerance and gait speed. Penitentiary Goal 5: 5 X sit<>stand without UE support in < 20 seconds to improve fluidity for transfers/mobility domestic freight forwarder goal 6: Improve Tinetti balance score to [...] Caceres PT, 06/05/22 at 1:23 PM * PENNY Espinoza/Jevon - 06/05/2022 12:30 PM EST [facility] Acute Rehabilitation Occupational Therapy Evaluation Date: 06/05/22 Patient Name: Steven Walden Room: 2609/2609-01 Account: [id number] : 1960 (62 y.o.) Gender: male Referring Practitioner: Sachin Mckeon MD Diagnosis: Debility Treatment Diagnosis: Impaired self-care status. Additional Pertinent Hx: Steven Walden is a 62 y.o. male with history of HTN, HLD, diabetes, CKD, peptic ulcer, gout, and depression admitted to [facility] on 05/28/2022. He initially presented to [facility] with flank pain and fever for [...] and any other acute concerns. Admitted to [facility] on 06/04/22 to maximize safety and independence with self-care and functional mobility fordischar home. 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 [...] Hand General: 4+/5 Left Hand Strength - Agricultural Research Director (lbs) Handle Setting 3: 75.33# (66#, 75#, 85#; norms: 65-103#) RUE AROM (degrees) RUE AROM : WFL Right Hand AROM (degrees) Right Hand AROM: WFL Tone LUE LUE Tone: Normotonic RUE Strength Gross RUE Strength: WFL R Hand General: 4/5 Right Hand Strength - Agricultural Research Director (lbs) Handle Setting 3: 56.33# (49#, 55#, [...] promote increased independence with self-care and mobility Cleaning Professional Goals Time Frame for Penitentiary Goals : By discharge Penitentiary Goal 1: Patient will perform BADLs with modified independence and Good safety. Cleaning Professional Goal 2: Patient will perform functional mobility and transfers during self-care with modified independence, least restrictive mobility device, and good safety. Cleaning Professional Goal 3: Patient will stand for 10+ minutes with 0-1 UE support, modified independence, and no LOB while engaging functional activity of choice. Cleaning Professional Goal 4: Patient will perform simple meal prep (i.e. breakfast sandwich) with modified independence. Cleaning Professional Goal 5: Patient will perform pet care (i.e. feeding his dog Pumpkin, taking her outside on leash) with stand by assist. Penitentiary Goal 6: Patient will perform self-care with improved bilateral fine motor control as evidenced by bilateral 5 second improvement in 9 hole peg test. Cleaning Professional Goal 7: Patient will perform self-care with improved R hand service agent strength as evidenced by10# improvement in dynamometer test score. Plan Occupational Therapy Plan Times Per Week: 5-7 Times Per Day: Twice a day Current Treatment Recommendations: Self-Care / ADL, Home management training, Strengthening, Balance training, Functional mobility training, Endurance training, Safety education & training, Patient/Caregiver education & training, Equipment evaluation, education, & procurement 06/05/22 0857 06/05/22 1402 Time Code Minutes Timed Code Treatment Minutes 54 Minutes 20 Minutes OT Individual Minutes Time In 0857 1402 Time Out 1007 1422 Minutes 70 20 * Tammy Obregon RN - 06/04/2022 8:44 PM EST Images from the original note were not included. ACUTE INPATIENT REHABILITATION ADMISSION [facility] Patient Name: Steven Walden Date of Admit: [...] Acute Inpatient Rehabilitation Attending PM&R Physician: Sachin Mckeno MD Skin Assessment Skin assessment performed by two nurses: all active alterations in skin integrity, wounds, lines, drains and airways assessed, measured, recorded and reconciled. Refer to LDA avatar and [facility] flowsheetfor additional information. Nurse 1 Completing Skin [...] with the following documents provided to patient/responsible alliance party: 1. [facility] Inpatient Acute Rehabilitation [facility] Individualized Disclosure Statement 2. Data Collection Information Summary for Patients in Inpatient Rehabilitation Facilities 3. Privacy Act Statement - Health Care Records Care plan was created with patient/responsible alliance party input and goals were agreed upon. Please refer to the admission navigator for further information. documented in [facility] [email or web address] Phone: 1(107) 435-228103-03-2023 Evaluation note* Diagnosis Debility- Primary Debility, unspecified Stage 3a chronic kidney disease (HCC) Type 2 diabetes mellitus with stage 3a chronic kidney disease, unspecified whether senior care insulin use (HCC) Physical deconditioning Debility, unspecified Major depressive disorder, recurrent, moderate (HCC) Major depressive disorder, recurrent episode, moderate Tremor Abnormal involuntary movements documented in this encounter [facility] [email or web address] Phone: 1(272) 875-209802-28-2023 Hospital Discharge instructions* Discharge Instr - SHAYNE* Thea Montes, RN - 06/08/2022 4:15 PM EST Continuity [...] Umm Walden Mobile Relation: Spouse Preferred language: Paraguayan Switching Operator needed? No Secondary Emergency Contact: Racheal Walden Mobile Relation: Child Preferred language: Paraguayan Switching Operator needed? No Past Surgical History: Past Surgical History: Procedure Laterality Date CHOLECYSTECTOMY 2011 CYSTOSCOPY Left 05/28/2022 CYSTOSCOPY, URETERAL STENT INSERTION, URETHRAL DILATION performed by Kevin Myles MD at [facility] OR HAND SURGERY Right 12/2021 Immunization History: Immunization History Administered Date(s) Administered COVID-19, J&J, (age 18y+), IM, 0.5 mL 09/04/2020 Active Problems: Patient Active Problem List Diagnosis Code DAISY (acute kidney injury) ([facility]) N17.9 ARF (acute renal failure) (FORM[facility]) N17.9 Chronic kidney disease N18.9 Type 2 diabetes mellitus with stage 3a chronic kidney disease ([facility]) E11.22, N18.31 Hyperlipidemia E78.5 Primary hypertension I10 Urinary tract obstruction by kidney stone N20.0, N13.8 Hydronephrosis of left kidney N13.30 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 Left ureteral stone N20.1 Debility R53.81 BRITTANY (generalized anxiety disorder) F41.1 Major depressive disorder, recurrent, moderate ([facility]) F33.1 Tremor R25.1 Isolation/Infection: Isolation No Isolation [...] Independent Dressing Independent Toileting Independent Feeding Independent Data Warehousing Architect Assisted Med Delivery none Wound Care Documentation [...] only, NOT a DME order): walker and territory sales consultant, grab bars Other Treatments: none Patient's personal belongings (please select all that are sent with patient): Glasses RN SIGNATURE: CASE MANAGEMENT/SOCIAL WORK SECTION Inpatient Status Date: Readmission Risk Assessment Score: Readmission Risk Risk of Unplanned Readmission: 15 Discharging to Facility/ Agency Dialysis Facility (if applicable) Name: Address: Dialysis Schedule: Phone: Fax: [employer]/Retail Consultant signature: {Esignature:[id number]} PHYSICIAN SECTION Prognosis: {Prognosis:9622861961} Condition at Discharge: { Patient Condition:057496906} Rehab Potential (if transferring to Rehab): {Prognosis:3664451243} Recommended Labs or Other Treatments After Discharge: Physician Certification: I certify the above information and transfer of Steven Walden is necessary for the continuing treatment of the diagnosis listed and that he requires {Admit to Appropriate Level of Care:83651} for {GREATER/LESS:852190559} 30 days. Update Admission H&P: {CHP DME Changes in HandP:102079752} PHYSICIAN SIGNATURE: {Esignature:466972343} documented in [facility] [employer] Work Phone: [phone]) 370-456902-24-2023 History of Present illness Narrative* Belgica Liriano RN - 06/04/2022 8:11 PM EST PT discharged to [facility] via transport with all of his belongings. Discharge instructions completed and report was called to [facility] by day shift nurse. * Rakesh Knutson RN - 06/04/2022 7:18 PM EST Report called to [facility]. All questions were answered at this time. * Rosales Singh MD - 06/04/2022 3:00 PM EST Images from the original note were not included. [facility] Office: [phone] Chris Osman DO, Terrence Johns DO, Stefani Augustin DO, Jaspreet Mosley DO, Surekha Batista MD, Adrienne Means MD, Rosales Singh MD, Caitlyn Benz MD, Abdoul Camargo MD, Cathy Farooq MD, Chepe Cordova DO, Betty Hess MD, Deja Guevara DO, April Girard MD, Arvin Maya MD, Jessica Osman, DO, Shima Watson MD, Raphael Connor MD, Jerome Simon, DO, Yoselyn Thakkar MD, Codi Self MD, Gilda Sousa MD, Vikki Adorno MD, Jarocho Real, DO, Krishan Vogt MD, Radha William MD, Shaunna Freitas, ARCHITECTURAL INSPECTOR, Prabha Hauser, ARCHITECTURAL INSPECTOR, Shirlene Dacosta, [facility], Favian Ji, [facility], Yesenia Espino, [facility], Ema Msaon, ARCHITECTURAL INSPECTOR, Calista Mendez, ARCHITECTURAL INSPECTOR, Gunjan Ruiz, [facility], Sharon Barry, ARCHITECTURAL INSPECTOR, Sri Weiner, [facility], Gillian Valles PA-C, Carleen Paiz, [facility], Catie Cheema, [facility], Chelsea Kulkarni, [facility] Daily Progress Note Admit Date: 05/28/2022 Bed/Room No. Admitting Physician : Rosales Singh MD Code Status :Full Code Hospital Day: LOS: 7 days Chief Complaint: Tremors Kidney failure Kidney stones Principal Problem: DAISY (acute kidney injury) (FORM[facility]) Active Problems: ARF (acute renal failure) (HCC) [...] kidney injury) (HCC). Patient was transferred from [facility] to [facility] where he presented with generalizedtremors , weakness [...] Hypertension 1999 Major depressive disorder Morbid obesity ([facility]) Neuropathy SHADE (obstructive sleep apnea) 2002 Peptic [...] -- -- 61 16 -- -- -- 02/23/23 2339 125/66 98.1 F (36.7 C) Oral [...] No results for input(s): PROT, LABALBU, LABA1C, F2TMHMA, V8UWTGH, FT4, TSH, AST, ALT, LDH, GGT, ALKPHOS, BILITOT, BILIDIR, AMMONIA, AMYLASE, LIPASE, LACTATE, CHOL, HDL, LDLCHOLESTEROL, CHOLHDLRATIO, TRIG, VLDL, BNP, TROPONINI, CKTOTAL, CKMB, CKMBINDEX, RF, AMY in the last 72 hours. Specific [place], UA Date Value Ref Range Status 05/28/2022 [...] daughter ar bed side Plan discussed with natural gas technician (Please note that portions of this note [...] Remeron. Estimated Daily Nutrient Needs: Energy (kcal): 1359-7935 kcals/day Weight Used for Energy Requirements: Current Protein (g): 110-140 gm pro/day Weight Used for Protein Requirements: [place] Fluid (ml/day): per MD Method Used for [...] this time [address], JOSE Contact: [phone] * Kevin Cunningham RCP - 06/03/2022 8:32 [...] 06/03/2022 3:09 PM EST Physical Therapy Facility/Department: [facility] CAR 2- STEPDOWN Physical Therapy Daily Treatment [...] from the original note were not included. [facility] Office: [phone] Chris Osman DO, Terrence Johns DO, Stefani Augustin DO, Jaspreet Mosley DO, Surekha Batista MD, Adrienne Means MD, Rosales Singh MD, Caitlyn Benz MD, Abdoul Camargo MD, Cathy Farooq MD, Chepe CordovaDO, Betty Hess MD, Deja Guevara DO, April Girard MD, Arvin Maya MD, Jessica Osman DO, Shima Watson MD, Raphael Connor MD, Jerome Simon DO, Yoselyn Thakkar MD, Codi Self MD, Gilda Sousa MD, Vikki Adorno MD, Jarocho Real DO, Krishan Vogt MD, Radha William MD, Shaunna Freitas, ARCHITECTURAL INSPECTOR, Prabha Hauser ARCHITECTURAL INSPECTOR, Shirlene Dacosta ARCHITECTURAL INSPECTOR, Favian Ji, ARCHITECTURAL INSPECTOR, Yesenia Espino [facility], Ema Mason, ARCHITECTURAL INSPECTOR, Calista Mendez, ARCHITECTURAL INSPECTOR, Gunjan Ruiz, ARCHITECTURAL INSPECTOR, Sharon Barry, ARCHITECTURAL INSPECTOR, Sri Weiner, ARCHITECTURAL INSPECTOR, Gillian Valles PA-C, Carleen Paiz, [facility], Catie Cheema, [facility], Chelsea Kulkarni, [facility] Daily Progress Note Admit Date: 05/28/2022 Bed/Room No. Admitting Physician : Rosales Singh MD Code Status :Full Code Hospital Day: LOS: 6 days Chief Complaint: Tremors Kidney failure Kidney stones Principal Problem: DAISY (acute kidney injury) ([facility]) Active Problems: ARF (acute renal failure) ([facility]) Chronic kidney disease Type 2 diabetes mellitus [...] kidney injury) (HCC). Patient was transferred from [facility] to [facility] where he presented with generalizedtremors , weakness [...] 93 % -- Intake / output 06/01 190 - 06/03 0700 In: 2009 [P.O.:2000; I.V.:10] [...] No results for input(s): PROT, LABALBU, LABA1C, K1ZHUCY, K7DLJPG, FT4, TSH, AST, ALT, LDH, GGT, ALKPHOS, BILITOT, BILIDIR, AMMONIA, AMYLASE, LIPASE, LACTATE, CHOL, HDL, LDLCHOLESTEROL, CHOLHDLRATIO, TRIG, VLDL, BNP, TROPONINI, CKTOTAL, CKMB, CKMBINDEX, RF, AMY in the last 72 hours. Specific [place], UA Date Value Ref Range Status 05/28/2022 [...] daughter ar bed side Plan discussed with natural gas technician (Please note that portions of this note [...] 06/02/2022 3:06 PM EST Physical Therapy Facility/Department: [facility] CAR 2- STEPDOWN Physical Therapy Daily treatment [...] Mobility Inpatient CMS G-Code Modifier : CK (06/02/22 150) Goals Short Term Goals Time Frame for [...] from the original note were not included. [facility] Office: [phone] Chris Osman DO, Terrence Johns DO, Stefani Augustin DO, Jaspreet Mosley DO, Surekha Batista MD, Adrienne Means MD, Rosales Singh MD, Caitlyn Benz MD, Abdoul Camargo MD, Cathy Farooq MD, Chepe Cordova DO, Betty Hess MD, Deja Guevara DO, April Girard MD, Arvin Maya MD, Jessica Osman DO, Shima Watson MD, Raphael Connor MD, Jerome Simon DO, Yoselyn Thakkar MD, Codi Self MD, Gilda Sousa MD, Vikki Adorno MD, Jarocho Real DO, Krishan Vogt MD, Radha William MD, Shaunna Freitas, ARCHITECTURAL INSPECTOR, Prabha Hauser, ARCHITECTURAL INSPECTOR, Shirlene Dacosta, ARCHITECTURAL INSPECTOR, Favian Ji, ARCHITECTURAL INSPECTOR, Yesenia Espino, [facility], Ema Mason, ARCHITECTURAL INSPECTOR, Calista Mendez, ARCHITECTURAL INSPECTOR, Gunjan Ruiz, [facility], Sharon Barry, [facility], Sri Weiner, [facility], Gillian Valles PA-C, Carleen Paiz, PILE DRIVER OPERATOR [place], Catie Cheema, ARCHITECTURAL INSPECTOR, Chelsea Kulkarni, [facility] Daily Progress Note Admit Date: 05/28/2022 [...] kidney injury) (HCC). Patient was transferred from [facility] to [facility] where he presented with generalizedtremors , weakness [...] 105 108* 108* CO2 21 22 20 GLUCOSE 183* 74 181* BUN 54* 40* 31* CREATININE 3.07* 2.52* 2.22* CALCIUM 8.4* 8.6 8.6 No results for input(s): PROT, LABALBU, LABA1C, D5JSRZP, F1XKZLE, FT4, TSH, AST, ALT, LDH, GGT, ALKPHOS, BILITOT, BILIDIR, AMMONIA, AMYLASE, LIPASE, LACTATE, CHOL, HDL, LDLCHOLESTEROL, CHOLHDLRATIO, TRIG, VLDL, BNP, TROPONINI, CKTOTAL, CKMB, CKMBINDEX, RF, AMY in the last 72 hours. Specific [place], UA Date Value Ref Range Status 05/28/2022 [...] daughter ar bed side Plan discussed with natural gas technician (Please note that portions of this note [...] is a 62 y.o. male admitted to [facility] on 05/28/2022. He initially presented to [facility] with flank pain and fever for [...] in use. 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 He was taken to [place] [facility] was found to have a creatinine of 8. Imaging study showed atrophic right kidney and left hydronephrosis with left ureteral stone. He was then transferred to [facility]. Lab work initially showed a potassium of [...] times daily vitamin D (ERGOCALCIFEROL) 1.25 MG (91634 UT) CAPS capsule, Take 50,000 Units by [...] 4. Patient should be seen in the [facility] clinic with Dr. Triplett within the next 3 to 4 weeks. Clinic number is [phone] 5. Expect continued renal recovery 6. If [...] MD Nephrology Attending Physician [facility] 05/31/2022 * Amanda Aguilera PTA - 06/01/2022 4:22 PM EST Physical Therapy Facility/Department: [facility] CAR 2- STEPDOWN Physical Therapy Daily Treatment [...] from the original note were not included. [facility] Office: [phone] Chris Osman DO, Terrence Johns DO, Stefani Augustin DO, Jaspreet Mosley DO, Surekha Batista MD, Adrienne Means MD, Rosales Singh MD, Caitlyn Benz MD, Abdoul Camargo MD, Cathy Farooq MD, Chepe Cordova DO, Betty Hess MD, Deja Guevara DO, April Girard MD, Arvin Maya MD, Jessica Osman DO, Shima Watson MD, Raphael Connor MD, Jerome Simon DO, Yoselyn Thakkar MD, Codi Self MD, Gilda Sousa MD, Vikki Adorno MD, Jarocho Real DO, Krishan Vogt MD, Radha iWlliam MD, Shaunna Freitas CNP, Prabha Hauser CNP, Shirlene Dacosta CNP, Favian Ji CNP, Yesenia Espino, TEJINDER, Ema Mason CNP, Calista Mendez CNP, Gunjan Ruiz CNP, Sharon Barry CNP, Sri Weiner CNP, Gillian Valles PA-C, Carleen Paiz, SARA, Catie Cheema CNP, Chelsea Kulkarni, ARCHITECTURAL INSPECTOR [facility] Daily Progress Note Admit Date: 05/28/2022 Bed/Room No. Admitting Physician : Rosales Singh MD Code Status :Full Code Hospital Day: LOS: 4 days Chief Complaint: Tremors Kidney failure Kidney stones Principal Problem: DAISY (acute kidney injury) ([facility]) Active Problems: ARF (acute renal failure) ([facility]) Chronic kidney disease Type 2 diabetes mellitus with stage 3a chronic kidney disease ([facility]) Hyperlipidemia Primary hypertension Urinary tract obstruction by [...] for treatment of DAISY (acute kidney injury) ([facility]). 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 Efforts were made to edit the dictations but occasionally words are mis-transcribed.) Rosales Singh MD 06/01/2022 * Desean Kitchen RN - 06/01/2022 1:00 AM EST Patient was hypoglycemic treated with the bolus doses of 10%Dextrose ,rechecked blood sugar and wasstill hypoglycemic notified air intercept controller 911 EMERGENCY DISPATCHER Carleen Paiz,as per the order,10%Dextrose 100ml/hr started. [...] times daily vitamin D (ERGOCALCIFEROL) 1.25 MG (70329 UT) CAPS capsule, Take 50,000 Units by [...] 0701 PHOS 5.6* Magnesium: Recent Labs 05/28/22 16505/29/22 0701 05/30/22 0308 MG 1.9 1.8 1.9 [...] 4. Patient should be seen in the [facility] clinic with Dr. Triplett within the next 3 to 4 weeks. Clinic number is [phone] 5. Expect continued renal recovery 6. If internal medicine could order weekly basic metabolic panel for the next 4 weeks with results to Dr. Triplett, nephrology would appreciate it Meseret Ballard MD Nephrology Attending Physician [facility] 05/31/2022 * Kevin Myles MD - 05/31/2022 7:51 AM EST Images from the original note were not included. Kevin Myles MD [facility] Urology Progress Note Subjective: Diet: No acute [...] C) Oral 69 19 95 % -- 05/30/22 2000 -- -- -- 78 -- -- -- [...] from the original note were not included. [facility] Office: [phone] Chris Osman DO, Terrence Johns DO, Stefani Augustin DO, Jaspreet Mosley DO, Surekha Batista MD, Adrienne Means MD, Rosales Singh MD, Caitlyn Benz MD, Abdoul Camargo MD, Cathy Farooq MD, Chepe Cordova DO, Betty Hess MD, Deja Guevara DO, April Girard MD, Arvin Maya MD, Jessica Osman DO, Shima Watson MD, Raphael Connor MD, Jerome Simon DO, Yoselyn Thakkar MD, Codi Self MD, Gilda Sousa MD, Vikki Adorno MD, Jarocho Real DO, Krishan Vogt MD, Radha William MD, Shaunna Freitas, KARINA, Prabha Hauser CNP, Shirlene Dacosta CNP, Favian Ji, ARCHITECTURAL INSPECTOR, Yesenai Espino, [facility], Ema Mason, ARCHITECTURAL INSPECTOR, Calista Mendez, ARCHITECTURAL INSPECTOR, Gunjan Ruiz, ARCHITECTURAL INSPECTOR, Sharon Barry, ARCHITECTURAL INSPECTOR, Sri Weiner, ARCHITECTURAL INSPECTOR, Gillian Valles PA-C, Carleen Paiz, [facility], Catie Cheema, ARCHITECTURAL INSPECTOR, Chelsea Kulkarni, ARCHITECTURAL INSPECTOR [facility] [facility] Daily [facility] Note Admit Date: 05/28/2022 Bed/Room No. Admitting Physician : Rosales Singh MD Code Status :Full Code Hospital Day: LOS: 3 days Chief Complaint: Tremors Kidney failure Kidney stones Principal Problem: DAISY (acute kidney injury) (HCC) Active Problems: ARF (acute renal failure) ([facility]) Chronic kidney disease Type 2 diabetes mellitus [...] kidney injury) (HCC). Patient was transferred from [facility] to [facility] where he presented with generalizedtremors , weakness [...] is cooperative. Laboratory findings: Recent Labs 05/28/22 1655 05/28/22 1659 05/30/22 0308 05/31/22 0552 WBC -- 7.2 8.3 7.9 HGB -- 14.6 13.2 12.5* HCT -- 48.9 41.1 38.1* PLT -- 118* 206 227 INR 1.0 -- -- -- Recent Labs 05/28/22 1655 05/28/22 2024 05/29/22 0701 05/29/22 2046 05/30/22 0308 05/30/22 [...] -- 32 24 -- ALT 23 -- 21 19 -- ALKPHOS 107 -- 104 97 -- BILITOT 0.5 -- 0.4 0.3 -- Specific [place], UA Date Value Ref Range Status 05/28/2022 [...] daughter ar bed side Plan discussed with natural gas technician (Please note that portions of this note were completed with a voice recognition program. Efforts were made to edit the dictations but occasionally words are mis-transcribed.) Rosales Singh MD 05/31/2022 * Lety Segura - 05/30/2022 12:34 PM EST SPIRITUAL CARE DEPARTMENT - [facility] [place] Shift date: 05/30/2022 Shift day: Tuesday Shift # 1 Room # Name: Steven Walden Referral: Routine Visit Admit Date & Time: 05/28/2022 4:25 PM Assessment: tSeven Walden is a 62 y.o. male in the hospital. Upon entering the room promotion writer observes the patient lying in bed in a dark room, appearing to be falling asleep. A visitor was bedside, reclined in a chair. The patient explained the day started hectic and they desired to rest and calm. Provider Relations Representative offered to return later or the next day. 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 Outcome: Expressed gratitude. Plan: Chaplains will remain available to offer spiritual and emotional support as needed. 05/30/22 1233 Encounter Summary Service Provided For: Patient Referral/Consult From: [facility] Support [facility] Family members Last Encounter 05/30/22 Complexity of Encounter Low Begin Time 1032 End Time 1035 Total Time Calculated 3 min Assessment/Intervention/Outcome Assessment Calm;Coping;Other (Comment) (Tired) Intervention Sustaining Presence/Ministry of presence Outcome Expressed Gratitude . Spiritual Care Department [facility] [phone] * Meseret Ballard MD - 05/30/2022 9:07 [...] times daily vitamin D (ERGOCALCIFEROL) 1.25 MG (88834 UT) CAPS capsule, Take 50,000 Units by [...] Daily insulin lispro 0-16 Units SubCUTAneous TID insulin lispro 0-4 Units SubCUTAneous Nightly [START [...] to follow along with you. Elise [place] ARCHITECTURAL INSPECTOR Attending Physician Statement I have discussed the care of Steven Walden, including pertinent history and exam findings with the ARCHITECTURAL INSPECTOR. I have reviewed the [place] elements of all parts of the encounter with the ARCHITECTURAL INSPECTOR. I have seen and examined the patient. I agree with the assessment and plan and status of the problem list as documented. Meseret Ballard MD Nephrology Attending Physician [facility] 05/30/2022 * Yesenia Espino APRN - 911 EMERGENCY DISPATCHER - 05/30/2022 8:23 AM EST Images from the original note were not included. [facility] Office: [phone] Chris Osman DO, Terrence Johns DO, Stefani Augustin DO, Jaspreet Mosley DO, Surekha Batista MD, Adrienne Means MD, Rosales Singh MD, Caitlyn Benz MD, Abdoul Camargo MD, Cathy Farooq MD, Chepe Cordova DO, Betty Hess MD, Deja Guevara DO, April Girard MD, Arvin Maya MD, Jessica Osman DO, Shima Watson MD, Raphael Connor MD, Jerome Simon DO, Yoselyn Thakkar MD, Codi Self MD, Gilda Sousa MD, Vikki Adorno MD, Jarocho Real DO, Krishan Vogt MD, Radha William MD, Shaunna Freitas, KARINA, Prabha Hauser CNP, Shirlene Dacosta CNP, Favian Ji, KARINA, Yesenia Espino DNP, Ema Mason, KARINA, Calista Mendez, KARINA, Gunjan Ruiz, ARCHITECTURAL INSPECTOR, Sharon Barry, ARCHITECTURAL INSPECTOR, Sri Weiner, KARINA, Gillian Valles PA-C, Carleen Paiz, PILE DRIVER OPERATOR [place], Catie Cheema CNP, Chelsea Kulkarni, KARINA [facility] IN-PATIENT SERVICE [facility] Progress Note 05/30/2022 8:23 AM Name: Steven Walden Acct: [id number] Room: IP Day: 2 Admit Date: 05/28/2022 [...] a 62-year-old male that is transferred to [facility] from [facility] for obstructing kidney stone with acute [...] Daily insulin lispro 0-16 Units SubCUTAneous TID insulin lispro 0-4 Units SubCUTAneous Nightly [START [...] 1.0 -- -- Chemistry: Recent Labs 05/28/22165405/28/22202305/29/22 0705/29/22204505/30/22 0308 NA 131* [...] in this interval not displayed. Recent Labs 05/28/22165405/28/22190305/28/22204305/28/22204405/29/22 0701 05/29/22 0810 05/29/22 1106 05/29/22 1621 [...] results found for: POCPH, PHART, PH, POCPCO2, UXF0IRI, PCO2, POCPO2, PO2ART, PO2, POCHCO3, GFC2MBQ, HCO3, NBEA, PBEA, BEART, BE, THGBART, THB, LUU0LKE, [id number], [id number], O2SAT, FIO2 No results found for: SPECIAL [...] POA * (Principal) DAISY (acute kidney injury) ([facility]) 05/28/2022 Yes ARF (acute renal failure) ([facility]) 05/28/2022 Yes Chronic kidney disease 05/28/2022 Yes Type 2 diabetes mellitus with stage 3a chronic kidney disease ([facility]) 05/28/2022 Yes Hyperlipidemia 05/28/2022 Yes Primary hypertension [...] note were not included. Kevin Myles MD [facility] Urology Progress Note Subjective: Diet: No acute [...] 3600 ml Net -815.57 ml Recent Labs 05/28/22165805/30/22 0308 WBC 7.2 8.3 HGB 14.6 13.2 HCT 48.9 41.1 MCV 103.4* 95.1 PLT 118* 206 Recent Labs 05/28/22165405/28/22202305/29/22 0701 05/29/22204505/30/22 0308 NA [...] 05/29/2022 12:39 PM EST Physical Therapy Facility/Department: [facility] CAR 2- STEPDOWN Physical Therapy Initial Assessment Name: Steven Walden : 1960 Date of Service: 05/29/2022 This is a 62-year-old male that is transferred to [facility] from [facility] for obstructing kidney stone with acute [...] Ambulation Assistance: Independent Transfer Assistance: Independent Active Glass Block Bender: Yes 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 Carballo remains Work Up: Immunifixation pending. [place] Lambda ratio pending. Complement C3 - 185 [...] PLT 118* MPV 9.8 BMP: Recent Labs 05/28/22165405/28/22202305/29/22 0701 NA 131* -- 139 K 5.6* 5.4* 4.6 CL 103 -- 105 CO2 9* -- 14* BUN 85* -- 78* CREATININE 7.05* -- 5.79* GLUCOSE 153* -- 187* CALCIUM 9.0 -- 9.1 Phosphorus: Recent Labs 05/29/22 0701 PHOS 5.6* Magnesium: Recent Labs 05/28/22165405/29/22 0701 MG 1.9 1.8 Albumin: Recent Labs 05/28/22165405/29/22 0701 LABALBU 2.8* 3.1* PTH: Lab Results [...] in am 5. Following. Nutrition Renal Diet/TF [facility]. Attending Physician Statement I have discussed the care of Steven Walden, including pertinent history and exam findings with the ARCHITECTURAL INSPECTOR. I have reviewed the [place] elements of all parts of the encounter with the ARCHITECTURAL INSPECTOR. I have seen and examined the patient. I agree with the assessment and plan and status of the problem list as documented and have edited the documentation as appropriate. Addiitionally I anticipate further improvement in renal function and electrolyte and acid-base status. Meseret Ballard MD Nephrology Attending Physician [facility] 05/29/2022 * Kevin Myles MD - 05/29/2022 8:47 AM EST Images from the original note were not included. Kevin Myles MD [facility] Urology Progress Note Subjective: Diet: No acute [...] C) Axillary 72 26 95 % -- 05/28/22 2352 122/83 97.7 F (36.5 C) Oral 71 15 95 % -- 05/28/222026 105/60 98.2 F (36.8 C) -- 67 16 95 % -- 05/28/221944 117/67 97.9 F (36.6 C) -- 70 23 95 % -- 05/28/22 193 118/71 -- -- 71 16 94 % -- 05/28/22 1915 124/74 -- -- 72 23 97 % -- 05/28/22 1900 122/65 -- -- 74 22 99 % -- 05/28/22 1852 -- -- -- 75 25 98 % -- 05/28/22 1845 138/80 -- -- 77 27 94 % -- 05/28/22 183 116/68 98.6 F (37 C) Temporal 79 25 95 % -- 05/28/22 1833 (!) 122/91 98.6 F (37 C) -- [...] ml Net -4900 ml Recent Labs 05/28/22 165 WBC 7.2 HGB 14.6 HCT 48.9 MCV 103.4* PLT 118* Recent Labs 05/28/22165405/28/22202305/29/22 0701 NA 131* -- 139 K 5.6* [...] noted above. * Yesenia Espino APRN - 911 EMERGENCY DISPATCHER - 05/29/2022 7:43 AM EST Images from the original note were not included. [facility] Office: [phone] Chris Osman DO, Terrence Johns DO, Stefani Augustin DO, Jaspreet Mosley DO, Surekha Batista MD, Adrienne Means MD, Rosales Singh MD, Caitlyn Benz MD, Abdoul Camargo MD, Cathy Farooq MD, Chepe Cordova DO, Betty Hess MD, Deja Guevara DO, April Girard MD, Arvin Maya MD, Jessica Osman DO, Shima Watson MD, Raphael Connor MD, Jerome Simon DO, Yoselyn Thakkar MD, Codi Self MD, Gilda Sousa MD, Vikki Adorno MD, Jarocho Real DO, Krishan Vogt MD, Radha William MD, Shaunna Freitas, ARCHITECTURAL INSPECTOR, Prabha Hauser, ARCHITECTURAL INSPECTOR, Shirlene Dacosta, ARCHITECTURAL INSPECTOR, Favian Ji, ARCHITECTURAL INSPECTOR, Yesenia Espino, [facility], Ema Mason, ARCHITECTURAL INSPECTOR, Calista Mendez, ARCHITECTURAL INSPECTOR, Gunjan Ruiz [facility], Sharon Barry, ARCHITECTURAL INSPECTOR, Sri Weiner, [facility], Gillian Valles PA-C, Carleen Paiz, [facility], Catie Cheema, ARCHITECTURAL INSPECTOR, Chelsea Kulkarni, [facility] IN-PATIENT SERVICE [facility] Progress Note 05/29/2022 7:47 AM Name: Steven Waledn Acct: [id number] Room: Day: 1 Admit Date: 05/28/2022 4:25 [...] a 62-year-old male that is transferred to [facility] from [facility] for obstructing kidney stone with acute [...] Net -4900 ml Labs: Hematology: Recent Labs 05/28/22 1655 05/28/22 1659 WBC -- 7.2 RBC -- 4.73 HGB [...] 9.0 -- PROBNP 2,234* -- Recent Labs 05/28/22 1649 05/28/22 16505/28/22 1904 05/28/22204305/28/222044 PROT -- 7.2 -- -- 6.7 LABALBU -- 2.8* -- -- -- AST -- 44* -- -- -- ALT -- 23 -- -- -- ALKPHOS -- 107 -- -- -- BILITOT -- 0.5 -- -- -- URICACID -- -- -- -- 7.8* POCGLU 126* -- 160* 187* -- ABG:No results found for: POCPH, PHART, PH, POCPCO2, PCS5ONP, PCO2, POCPO2, PO2ART, PO2, POCHCO3, FCY7GNZ, HCO3, NBEA, PBEA, BEART, BE, THGBART, THB, BRU4MKT, [id number], E3HRQEEU, O2SAT, FIO2 No results found for: SPECIAL [...] POA * (Principal) DAISY (acute kidney injury) ([facility]) 05/28/2022 Yes ARF (acute renal failure) ([facility]) 05/28/2022 Yes Chronic kidney disease 05/28/2022 Yes Type 2 diabetes mellitus with stage 3a chronic kidney disease (HCC) 05/28/2022 Yes Hyperlipidemia 05/28/2022 Yes Primary hypertension [...] Denton RN - 05/28/2022 5:50 PM EST Lindsayro paged and notified of chemistry labs and critical. * Dara Denton RN - 05/28/2022 5:29 PM EST Pt to OR. * Dara Denton RN - 05/28/2022 5:08 PM EST Pt arrived from [facility] for obstructing kidney stone. Pt reports he went to the hospital for a fall and he was taken to the [facility] ER and found to have a BS of 46 per pt. [facility] in [facility]. documented in this [facility] Work Phone: [phone]) 946-958602-24-2023 Hospital course Narrative* Rosales Singh MD - 06/04/2022 3:47 PM EST Images from the original note were not included. [facility] Office: [phone] Chris Osman DO, Terrence Johns DO, Stefani Augustin DO, Jaspreet Mosley DO, Surekha Batista MD, Adrienne Means MD, Rosales Singh MD, Caitlyn Benz MD, Kt Gay MD, Vikki Adorno MD, Abdoul Camargo MD, Cathy Farooq MD, Zhanna Portillo MD, Jarocho Real DO, Mark Cade MD, Julianna Wallace MD, Chepe Cordova DO, Betty Hess MD, Deja Guevara DO, Isiah Chavez MD, Orquidea Schneider MD, Shaunna Freitas ARCHITECTURAL INSPECTOR, Sri Weiner ARCHITECTURAL INSPECTOR, Chelsea Kulkarni ARCHITECTURAL INSPECTOR, Carleen RUIZ, Crispin Bey ARCHITECTURAL INSPECTOR, Edy ARCHITECTURAL INSPECTOR, Catie Bryant ARCHITECTURAL INSPECTOR, Shirlene Cha ARCHITECTURAL INSPECTOR, Favian Ji ARCHITECTURAL INSPECTOR, Gillian Valles PA-C, Yesenia Espino ARCHITECTURAL INSPECTOR, Amanda Pina ARCHITECTURAL INSPECTOR, Shana Ashford ARCHITECTURAL INSPECTOR, Ema Mason ARCHITECTURAL INSPECTOR, Karuna Moreira ARCHITECTURAL INSPECTOR, Calista Mendez, ARCHITECTURAL INSPECTOR [facility] Discharge Summary Patient ID: Steven Walden : 1960 ACCOUNT: [id number] Patient Location : Patient's PCP: Darion Randle MD Admit Date: 05/28/2022 Discharge Date: 06/04/22 Length of Stay: 7 Code Status: Full Code Admitting Physician: No admitting provider for patient encounter. Discharge Physician: Rosales Singh MD Active Discharge Diagnosis : Primary Problem DAISY (acute kidney injury) (HCC) Hospital Problems Active Hospital Problems Diagnosis Date Noted BRITTANY (generalized anxiety disorder) [F41.1] 06/03/2022 Priority: Medium Debility [R53.81] 06/01/2022 Priority: Medium DAISY (acute kidney injury) (HCC) [N17.9] 05/28/2022 Priority: Medium ARF (acute renal failure) (HCC) [N17.9] 05/28/2022 Priority: Medium Chronic kidney disease [...] injury) (HCC) , presented to ER with tremors , renal failure Patient was transferred from [facility] to [facility] where he presented with generalizedtremors , weakness [...] hold. KVO. Follow outpatient with Dr. Triplett hris administrator. Type 2 diabetes mellitus - insulin dependent [...] discharge. Discharge plan: Disposition: Acute rehab at [facility]. Physician Follow Up: Kevin Myles MD [address] [facility], [address] [facility] [address] Follow up in 1 week(s) follow up for definitive stone treatment Mane Triplett MD [address] [facility] [place] [id number] Schedule an appointment as soon as possible [...] albuterol sulfate HFA vitamin D 1.25 MG (40554 UT) Caps capsule Commonly known as: ERGOCALCIFEROL [...] Your Medications These medications were sent to [facility] [address] [place] [address] - [phone] - F [phone] [place] [address] brexpiprazole 2 MG Tabs tablet propranolol 20 [...] this patient's care. documented in this encounterBON [email or web address] Phone: evaluation note* Diagnosis DAISY (acute kidney [...] Calculus of ureter documented in this encounter [employer] Phone: evaluation note* Diagnosis DAISY (acute kidney injury) ([facility])- Primary Acute kidney failure, unspecified Acute kidney injury superimposed on CKD ([facility]) Pyelonephritis Pyelonephritis, unspecified Left ureteral stone Chronic kidney disease Chronic kidney disease, unspecified Type 2 diabetes mellitus with stage 3a chronic kidney disease (HCC) Hyperlipidemia Other and unspecified hyperlipidemia Primary hypertension Unspecified essential hypertension BRITTANY (generalized anxiety disorder) Generalized anxiety disorder Major depressive disorder, recurrent, moderate ([facility]) Major depressive disorder, recurrent episode, moderate Acute kidney injury superimposed on CKD ([facility]) Bandemia Pyelonephritis Pyelonephritis, unspecified Emphysematous cystitis Other specified types of cystitis Hyponatremia Hyposmolality and/or hyponatremia Dependence on renal dialysis ([facility]) Renal dialysis status Metabolic acidosis Acidosis documented in this encounter [employer] Phone: [email or web address] note* Diagnosis Debility- Primary Debility, unspecified Debility Debility, unspecified documented in this encounter [employer] Phone: [email or web address] noteNo InformationNomercy hospital st. [facility] vogogo Other Evaluation noteNo assessment information available [facility] Work Phone: Evaluation note* Diagnosis Onset Date Resolution Status Acute anxiety acute [facility] Work Phone: Evaluation note* Diagnosis Onset Date Resolution Status Acute anxiety acute Major depression acute [facility] Work Phone: Evaluation note* Diagnosis Major depressive disorder, single episode, moderate ([facility]) ([facility]/HCC) Major depressive disorder, single episode, moderate documented in this encounter [facility] HealthcareHistory general Narrative - Reported* Type Description Date Medical History diabetes mellitus Medical History edema Medical History kidney disease, stage 3 Medical History hypertension Medical History Charcot foot Medical History Sleep apnea Medical History Kindey stone in 1989, passed Medical History KIDNEY FAILURE Medical History GOUT Medical History ASTHMA Surgical History heart catheterization at [facility] 2016 Surgical History gallbladder 2010 Surgical History egd 2019 Surgical History colonoscopy 2019 Surgical History PORT IN CHEST 2022 Hospitalization History see above Hospitalization History [facility] 05/2022 [facility] Other History general Narrative - Reported* Type Description Date Medical History diabetes mellitus Medical History edema Medical History kidney disease, stage 3 Medical History hypertension Medical History Charcot foot Medical History Sleep apnea Medical History Kindey stone in 1989, passed Medical History KIDNEY FAILURE Medical History GOUT Medical History ASTHMA Surgical History heart catheterization at [facility] 2016 Surgical History gallbladder 2010 Surgical History egd 2019 Surgical History colonoscopy 2019 Surgical History PORT IN CHEST 2022 Hospitalization History see above Hospitalization History [facility] X3 TIMES 05/2022 [facility] Other Summary Purpose Family History No Family [...] Referred By Mark nash Referred To Contact Occupational Therapy [place] [address] [place] [address] [facility] Occupation Therapy [address] [place] [address] Referral ID Status Reason Start Date Expiration Date V isits Requested Visits Authorized [id number] Open Specialty Services Required 06/11/2022 06/11/2023 1 [address] [facility] - Occupational Therapy [address] [place] [address] , [address] [place] [address] Please call within 48 hours to schedule [...] Mark nash Referred To Contact Physical Therapist / Physical Therapy Diagnoses Physical deconditioning Marcus Yepez MD [address] [place] [address] [facility] Mob [address] [place] [address] Referral ID Status Reason Start Date Expiration Date V isits Requested Visits Authorized [id number] Open Specialty Services Required 06/11/2022 06/11/2023 1 [address] [facility] - Physical Therapy [address], , [address] [place] [address] Please call within 48 hours to schedule [...] Therapist Diagnoses Debility Shelley Huggins MD [address] [place] [address] Referral ID Status Reason Start Date Expiration Date V isits Requested Visits Authorized [id number] Open Specialty Services Required 07/08/2022 01/04/2023 1 1 Scheduling Instructions Patient with debility secondary to UTI and renal failure. Will need continuation of physical therapy after discharge from [facility]. Question Answer Reason For External Referral? Location [...] and content) DATE CREATED AUTHOR 09/28/2017 [facility] DATE CREATED AUTHOR AUTHOR'S ORGANIZ ATION 07/21/2022 [facility] DATE CREATED AUTHOR AUTHOR'S ORGANIZ ATION 08/23/2022 [facility] DATE CREATED AUTHOR AUTHOR'S ORGANIZ ATION 09/17/2022 [facility] DATE CREATED AUTHOR AUTHOR'S ORGANIZ ATION 05/25/2023 [facility] DATE CREATED AUTHOR AUTHOR'S ORGANIZ ATION 07/24/2023 [facility] DATE CREATED AUTHOR AUTHOR'S ORGANIZ ATION 08/01/2023 [facility] DATE CREATED AUTHOR AUTHOR'S ORGANIZ ATION 08/04/2023 [facility] Specialists EPIC Reason for Visit (unrecogniz ed section and content) Specialty Diagnoses / Procedures Referred By Contac t Referred To Contact Diagnoses Acute renal failure (ARF) (HCC) ARF (acute renal failure) (HCC) ARF Stvz Car 2- Stepdown [address] [place] [address] [email or web address] [address] [place] [address] Referral ID Status Reason Start Date Expiration Date Visits Re quested Visits Authorized [id number] 1 1 Reason Comments Fall Fever Flank Pain Specialty Diagnoses / Procedures Referred By Contac t Referred To Contact Diagnoses Pyelonephritis DAISY (acute kidney injury) (HCC) Acute kidney injury superimposed on CKD (HCC) Stvz 3b Renal/Med Surg [address] [place] [address] [email or web address] [address] [place] [address] Referral ID Status Reason Start Date Expiration Date Visits Re quested Visits Authorized [id number] 1 1 Reason Comments Med Management Follow-up Ordered Prescriptions (unrec ognized section and content) [...] times daily 90 tablet 1 06/11/2022 Handicap Placard MISC by Does not apply route Duration: 3 months / Dx:Amb difficulty 1 each 0 06/11/2022 Ergocalciferol (VITAMIN D) 52635 units CAPS Take 50,000 Units by mouth [...] Insulin Pen Needle 32G X 6 MM [facility] Use one needle for each insulin injection [...] 10 mg, Oral, DAILY, First dose on Tue05/29/22 at 1000, Until Discontinued 0818 (Given - Provider: Amanda Celestin RN) 0904 (Given - Provider: Amanda Celestin RN) 0835 (Given - Provider: Rakesh Knutson, TO) atorvastatin (LIPITOR) tablet 20 mg 20 mg, Oral, NIGHTLY, First dose on Tue05/29/22 at 2100, Until Discontinued 2133 (Given - Provider: Desean Kitchen RN) 2034 (Given - Provider: Kirk Street RN) 2099 (Due) brexpiprazole (REXULTI) tablet 2 mg 2 mg, Oral, DAILY, First dose (after last modification) on Tue06/01/22 at 0900, Until Discontinued 817 (Given - Provider: Amanda Celestin RN) 104 (Given - Provider: Amanda Celestin RN) 0835 (Given - Provider: Rakesh Knutson RN) budesonide-formoterol (SYMBICORT) 80-4.5 MCG/ACT inhaler 2 puff 2 puff, Inhalation, 2 TIMES DAILY, First dose on 05/29/22 at 1000, Until Discontinued, Rinse mouth out [...] Amanda Celestin RN)213 (Given - Provider: Desean Kitchen, TO) 0904 (Given - Provider: Amanda Celestin RN)2034 (Given - Provider: Kirk Street RN) 0835 (Given - Provider: Rakesh Knutson, TO)2100 (Due) dextrose 50 % IV solution 25 g, IntraVENous, ONCE, 1 dose, On Tue05/28/22 at 1830 heparin (porcine) injection 5,000 Units 5,000 Units, SubCUTAneous, EVERY 8 HOURS SCHEDULED (3 times per day), First dose (after last modification) on 05/29/22 at 0600, Until Discontinued 0532 (Given - Provider: Lety Cox RN)1442 (Given - Provider: Amanda Celestin RN)2133 (Given - Provider: Desean Kitchen, TO) 0614 (Given - Provider: Desean Kitchen, TO)1344 (Given - Provider: Amanda Celestin RN)2034 (Given - Provider: Kirk [address], TO) 0602 (Given - Provider: Gina Pradhan RN)1342 (Given - Provider: Rakesh Knutson, TO)2200 (Due) insulin lispro (HUMALOG) injection vial 0-16 [...] Amanda Celestin RN)1658 (Not Given - Provider: Amanda Celestin RN [...] 0-4 Units, SubCUTAneous, NIGHTLY, First dose on Tue05/29/22 at 2100, Until Discontinued, If continuous tube feedings/TPN/NPO, give correction dose based on result, no reduction in dose. If eating or bolus tube feeding: Corrective Bedtime Algorithm Glucose: Dose: 70-299 No Insulin 300-349 4 Units Over 349 4 Units and notify physician 2145 (Not Given - Provider: Desean Kitchen RN [...] MEALS, First dose (after last modification) on Candace 06/03/22 at 1700, Until Discontinued, THIS IS HIGHLY CONCENTRATED INSULIN!!!!! 1741 (Given - Provider: Amanda Celestin RN) 0816 (Held - Provider: Rakesh Knutson RN - Reason: Contraindicated - Comment: BS 79. Held per Dr. Singh) lamoTRIgine (LAMICTAL) tablet 200 mg 200 mg, Oral, DAILY, First dose on 05/29/22 at 1000, Until Discontinued 0830 (Given - Provider: Amanda Celestin RN) 09 (Given - Provider: Amanda Celestin RN) 834 (Given - Provider: Rakesh Knutson RN) lisinopril (PRINIVIL;ZESTRIL) tablet 20 mg 20 mg, Oral, DAILY, First dose on 05/29/22 at 1000, Until Discontinued 0900 (Automatically Held) [...] dose on 05/29/22 at 1000, Until Discontinued 817 (Given - Provider: Amanda Celestin RN)2133 (Given - Provider: Desean Kitchen RN) 902 (Given - Provider: Amanda Celestin RN)2034 (Given - Provider: Kirk [address], TO) mirtazapine (REMERON) tablet 30 mg 30 mg, Oral, NIGHTLY, First dose on 05/29/22 at 2100, Until Discontinued 2133 (Given - Provider: Desean Kitchen RN) 2034 (Given - Provider: Kirk [address], TO) 2100 (Due) pantoprazole (PROTONIX) tablet 40 mg 40 mg, Oral, DAILY BEFORE BREAKFAST, First dose on Tue05/30/22 at 0700, Until Discontinued, Do not crush or break. 0533 (Given - Provider: Lety Cox RN) 0903 (Given - Provider: Amanda Celestin RN) 0834 [...] dose on Tue06/04/22 at 1530, Until Discontinued 1631 (Given - Provid er: Rakesh Knutson RN)2100 (Due) sodium chloride flush 0.9 % injection [...] Midline or Central Line = 20 mL/lumen 0819 (Given - Provider: Amanda Celestin RN)2146 (Not Given - Provider: Desean Kitchen RN - Reason: Other) 0904 (Given - Provider: Amanda Celestin RN)203 (Given - Provider: Kirk Street RN) 0838 (Given - Provider: Rakesh Knutson RN)2100 (Due) sodium chloride flush 0.9 % injection [...] Central Line = 20 mL/lumen, PACU only 0819 (Given - Provider: Amanda Celestin RN)214 (Given - Provider: Desean Kitchen RN) 0904 (Given - Provider: Amanda Celestin RN)2035 (Not Given - Provider: Kirk Street RN - Reason: Other) 0838 (Given - Provider: Rakesh Knutson RN)2099 (Due) tamsulosin (FLOMAX) capsule 0.4 mg 0.4 mg, Oral, DAILY, First dose on Tue05/28/22 at 1900, Until Discontinued, Do not crush or break. 0819 (Given - Provider: Amanda Celestin RN) 0903 (Given - Provider: Amanda Celestin RN) 0834 (Given - Provider: Rakesh Knutson RN) venlafaxine (EFFEXOR XR) extended release capsule 150 mg 150 mg, Oral, DAILY, First dose (after last modification) on Tue06/01/22 at 0900, Until Discontinued, Do not crush or break. 0819 (Given - Provider: Amanda Celestin RN) 0903 (Given - Provider: Amanda Celestin RN) 0834 [...] Oral, EVERY 6 HOURS PRN, Starting on Tue05/31/22 at 1023, Until Discontinued, Pain Severe (7-10), [...] Until Discontinued 0712 (Given - Provider: Alba iMller RN) 0740 (Given - Provider: Glenda Stinson RN) 0819 (Given - Provider: Thea Montes, TO) atorvastatin (LIPITOR) tablet 20 mg 20 mg, Oral, NIGHTLY, First dose (after last modification) on Tue06/04/22 at 2115, Until Discontinued 2208 (Given - Provider: Priya Londono LPN) 2226 (Given - Provider: Priya Londono LPN) 2100 (Due) brexpiprazole (REXULTI) tablet 1 mg 1 mg, Oral, DAILY, First dose (after last modification) on Candace 06/10/22 at 0900, Until Discontinued 0739 (Given - Provider: Glenda Stinson RN)0850 (Canceled Entry - Provider: Glenda Stinson RN) 0819 (Given - Provider: Thea Montes, TO) brexpiprazole (REXULTI) tablet 2 mg (CANCELED) 2 [...] Marsha Soliz)2017 (Given - Provider: Agnes Powell BEE RAISER) 0700 (Given - Provider: Prabha Gomez BEE RAISER)195 (Given - Provider: Maddy Abarca BEE RAISER) 0947 (Not Given - Provider: Eugenie Charles BEE RAISER - Reason: Patient not available)1999 (Due) cephALEXin [...] Montes RN - Reason: Other - Comment: discharge)2199 (Due) insulin lispro (HUMALOG) injection vial 0-16 Units 0-16 Units, SubCUTAneous, 3 TIMES DAILY WITH MEALS, First dose (after last modification) on 06/05/22 at 0800, Until Discontinued, High Dose Corrective [...] Priya Londono LPN)1107 (Given - Provider: Thea Montes RN)1700 (Due) insulin lispro (HUMALOG) injection vial 0-4 [...] 2210 (Given - Provider: Priya Londono LPN) 2225 (Given - Provider: Priya Londono LPN) 2100 [...] RN) 0819 (Given - Provider: Thea Montes, TO) venlafaxine (EFFEXOR XR) extended release capsule 150 [...] Rectal, DAILY PRN, Starting on Tue06/04/22 at 2105, Until Discontinued, Constipation, TO BE GIVEN AFTER [...] available and scheduled time. Patient in dialysis) 0723 (MAR Hold - Provider: Kaye Autohold - Reason: Unreviewed Transfer Orders)0900 (Automatically Held - Provider: Kaye Autohold)1112 (MAR Unhold - Provider: Jessenia Norton RN)180 (Given - Provider: Jessenia Norton RN) 0954 (Given - Provider: Keyla Metzger RN) atorvastatin (LIPITOR) tablet 20 mg 20 mg, Oral, NIGHTLY, First dose on 06/20/22 at 2100, Until Discontinued 2007 (Given - Provider: Levi Javier RN) 0723 (MAR Hold - Provider: Kaye Autohold - Reason: Unreviewed Transfer Orders)1112 (MAR Unhold - Provider: Jessenia Norton RN)2108 (Given - Provider: Levi Javier RN) 2100 (Due) bisacodyl (DULCOLAX) suppository 10 mg 10 mg, Rectal, DAILY, First dose on 06/21/22 at 0900, Until Discontinued 102 (Not Given - Provider: Keyla Metzger RN - Reason: Patient/family refused) 0723 (MAR Hold - Provider: Kaye Autohold - Reason: Unreviewed Transfer Orders)0900 (Automatically Held - Provider: Kaye Autohold)1112 (MAR Unhold - Provider: Jessenia Norton RN) 0954 (Not Given - Provider: Keyla Metzger RN - Reason: Patient/family refused) brexpiprazole (REXULTI) tablet 2 mg 2 mg, Oral, DAILY, First dose (after last modification) on Candace 06/24/22 at 2330, Until Discontinued 135 (Given - Provider: Keyla Metzger RN) 0723 (MAR Hold - Provider: Kaye Autohold - Reason: Unreviewed Transfer Orders)0900 (Automatically Held - Provider: Kaye Autohold)1112 (MAR Unhold - Provider: Jessenia Norton RN)180 (Given - Provider: Jessenia Norton RN) 0954 (Given - Provider: Keyla Metzger RN) budesonide-formoterol (SYMBICORT) 80-4.5 MCG/ACT inhaler 2 puff 2 puff, Inhalation, 2 TIMES DAILY, First dose on Tue06/20/22 at 0800, Until Discontinued, Rinse mouth out with water (without swallowing) after every dose. 0920 (Given - Provider: Rayray Mack RCP)2111 (Given - Provider: Eldon Romero RCP) 07 (JUN Hold - Provider: Kaye Autohold - Reason: Unreviewed Transfer Orders)08 (Automatically Held - Provider: Kaye Autohold)111 (MAR Unhold - Provider: Jessenia Norton RN)2110 (Given - Provider: Eldon Romero RCP) 08 (Given - Provider: Iona Zhang RCP)1999 (Due) [...] dilute in syringe to 20 mL. 0723 ([facility] Hold - Provider: Kaye Autohold - Reason: Unreviewed Transfer Orders)0900 (Automatically Held - Provider: Kaye Schaferhold)111 ([facility] Unhold - Provider: Jessenia Norton RN)112 (Not Given - Provider: Jessenia Norton RN - Reason: Loss of IV access)191 (Given - Provider: Jessenia Norton RN) gabapentin (NEURONTIN) capsule 300 mg 300 mg, Oral, DAILY, First dose (after last modification) on Tue06/27/22 at 1300, Until Discontinued 1359 (Given - Provider: Keyla Metzger RN) 07 ([facility] Hold - Provider: Kaye Autohold - Reason: Unreviewed Transfer Orders)111 ([facility] Unhold - Provider: Jessenia Friend, RN)1803 (Given - Provider: Jessenia Norton RN) 1318 (Given - Provider: Keyla Metzger RN) heparin (porcine) injection 5,000 Units 5,000 Units, SubCUTAneous, EVERY 8 HOURS SCHEDULED (3 times per day), First dose on Tue06/21/22 at 2200, Until Discontinued 0547 (Given - Provider: Lety Jones RN)1355 (Not Given - Provider: Keyla Metzger RN - Reason: Contraindicated - Comment: IR procedure)2148 (Given - Provider: Levi Javier RN) 0553 (Given - Provider: Levi Javier RN)0723 (MAR Hold - Provider: Kaye Autohold - Reason: Unreviewed Transfer Orders)1112 (MAR Unhold - Provider: Jessenia Norton RN)180 (Given - Provider: Jessenia Norton RN)215 (Not Given - Provider: Levi Javier RN - Reason: Other - Comment: given at 180) 0549 (Given - Provider: Levi Javier RN)1400 (Due)2200 (Due) insulin glargine (LANTUS) injection vial 25 Units 25 Units, SubCUTAneous, NIGHTLY, First dose (after last modification) on Tue06/25/22 at 2100, Until Discontinued 2030 (Given - Provider: Levi Javier RN) 0723 (MAR Hold - Provider: Kaye Autohold - Reason: Unreviewed Transfer Orders)1112 (MAR Unhold - Provider: Jessenia Norton RN)210 (Given - Provider: Levi Javier RN) 2100 (Due) insulin lispro (HUMALOG) injection vial 0-4 Units 0-4 Units, SubCUTAneous, NIGHTLY, First dose on Tue06/20/22 at 2100, Until Discontinued, If continuous tube feedings/TPN/NPO, give correction dose based on result, no reduction in dose. If eating or bolus tube feeding: Corrective Bedtime Algorithm Glucose: Dose: 70-299 No Insulin 300-349 4 Units Over 349 4 Units and notify physician 2024 (Not Given - Provider: Levi Javier RN - Reason: Order parameters not met) 0723 (MAR Hold - Provider: Kaye Autohold - Reason: Unreviewed Transfer Orders)1112 (MAR Unhold - Provider: Jessenia Norton RN)2048 (Not Given - Provider: Levi Javier RN - Reason: Order parameters not met) 2100 (Due) insulin lispro (HUMALOG) injection vial 0-8 [...] not met) 0723 (MAR Hold - Provider: Kaye Autohold - Reason: Unreviewed Transfer Orders)0800 (Automatically Held - Provider: Kaye Autohold)1112 (MAR Unhold - Provider: Jessenia Norton RN)1212 (Not Given - Provider: Jessenia Norton RN - Reason: Order parameters not met)1815 (Not Given - Provider: Jessenia Norton RN - Reason: Order parameters not met) 0914 (Not Given - Provider: Keyla Metzger RN - Reason: Order parameters not met)1318 (Given - Provider: Keyla Metzger RN)1700 (Due) lamoTRIgine (LAMICTAL) tablet 200 mg 200 mg, Oral, DAILY, First dose on 06/20/22 at 0900, Until Discontinued 1359 (Given - Provider: Keyla Metzger RN) 0723 (MAR Hold - Provider: Kaye Autohold - Reason: Unreviewed Transfer Orders)0900 (Automatically Held - Provider: Kaye Autohold)1112 (MAR Unhold - Provider: Jessenia Norton RN)1804 (Given - Provider: eJssenia Norton RN) 1210 (Given - Provider: Keyla Metzger RN - Comment: medication not available at scheduled time) mirtazapine (REMERON) tablet 30 mg 30 mg, Oral, NIGHTLY, First dose on 06/20/22 at 2100, Until Discontinued 2007 (Given - Provider: Levi Javier RN) 0723 (MAR Hold - Provider: Kaye Autohold - Reason: Unreviewed Transfer Orders)1112 (MAR [...] Levi Javier RN)0723 (MAR Hold - Provider: Kaye Autohold - Reason: Unreviewed Transfer Orders)1112 (MAR Unhold - Provider: Jessenia Norton RN)180 (Given - Provider: Jessenia Norton RN) 0954 (Given - Provider: Keyla Metzger RN) polyethylene glycol (GLYCOLAX) packet 17 g 17 g, Oral, DAILY, First dose on Tue06/21/22 at 0900, Until Discontinued, Stir and dissolve one packet of powder (17 g) in any 4 to 8 ounces of beverage (cold, hot or room temperature) then drink 1026 (Not Given - Provider: Keyla Metzger RN - Reason: Patient/family refused) 0723 (MAR Hold - Provider: Kaye Autohold - Reason: Unreviewed Transfer Orders)0900 (Automatically Held - Provider: Kaye Autohold)1112 (MAR Unhold - Provider: Jessenia Norton RN) 0954 (Not Given - Provider: Keyla Metzger RN - Reason: Patient/family refused) propranolol (INDERAL) tablet 20 mg 20 mg, Oral, 3 TIMES DAILY, First dose on 06/20/22 at 0900, Until Discontinued 1026 (Not Given - Provider: Keyla Metzger RN - Reason: Patient not available - Comment: Dialysis)1359 (Given - Provider: Keyla Metzger RN)2008 (Given - Provider: Levi Javier RN) 0723 (MAR Hold - Provider: Kaye Autohold - Reason: Unreviewed Transfer Orders)0900 (Automatically Held - Provider: Kaye Autohold)1112 (MAR Unhold - Provider: Jessenia Norton RN)180 (Given - Provider: Jessenia Norton RN)2120 (Not Given - Provider: Levi Javier RN - Reason: Other - Comment: given at 1804) 0955 (Given - Provider: Keyla Metzger RN)1400 (Due)2099 (Due) scopolamine (TRANSDERM-SCOP) transdermal patch 1 patch (CANCELED) 1 patch, TransDERmal, Administer over 72 Hours, EVERY 72 HOURS, First dose on Tue06/29/22 at 0845, For 1 dose, Remove in 72 hours, Pre-op (day of surgery) 0823 (Patch Applied - Provider: Zunilda Frederick RN - Comment: Behind right ear)111 (Patch Verified - Provider: Jessenia Norton RN - Comment: Time automatically adjusted from order being discontinued) senna (SENOKOT) tablet 8.6 mg 8.6 mg (1 tablet), Oral, NIGHTLY, First dose on Tue06/21/22 at 2100, Until Discontinued 2018 (Not Given - Provider: Levi Javier RN - Reason: Patient/family refused) 0723 (MAR Hold - Provider: Kaye Autohold - Reason: Unreviewed Transfer Orders)111 (MAR Unhold - Provider: Jessenia Norton RN)2121 (Not Given - Provider: Levi Javier RN - Reason: Patient/family refused) 2099 (Due) sodium chloride flush 0.9 % injection 5-40 mL 5-40 mL, IntraVENous, EVERY 12 HOURS SCHEDULED (2 times per day), First dose on Tue06/20/22 at 0900, Until Discontinued, For Line Patency: [...] 20 mL/lumen 1359 (Given - Provider: Keyla Blunt V, RN)2030 (Given - Provider: Levi Javier RN) 0723 (MAR Hold - Provider: Kaye Autohold - Reason: Unreviewed Transfer Orders)0900 (Automatically Held - Provider: Kaye Autohold)1112 (MAR Unhold - Provider: Jessenia Norton RN)1123 (Given - Provider: Jessenia Norton RN)2109 (Given - Provider: Levi Javier RN) 0954 (Given - Provider: Keyla Metzger RN)2100 (Due) tamsulosin (FLOMAX) capsule 0.4 mg 0.4 mg, Oral, DAILY, First dose on 06/20/22 at 0900, Until Discontinued, Do not crush or break. 1359 (Given - Provider: Keyla Metzger RN) 0723 (MAR Hold - Provider: Kaye Autohold - Reason: Unreviewed Transfer Orders)0900 (Automatically Held - Provider: Kaye Autohold)1112 (MAR Unhold - Provider: Jessenia Norton RN)1806 (Given - Provider: Jessenia Norton RN) 0954 (Given - Provider: Keyla Metzger RN) venlafaxine (EFFEXOR XR) extended release capsule 150 mg 150 mg, Oral, DAILY, First dose on 06/20/22 at 0900, Until Discontinued, Do not crush or break. 1359 (Given - Provider: Keyla Metzger RN) 0723 (MAR Hold - Provider: Kaye Autohold - Reason: Unreviewed Transfer Orders)0900 (Automatically Held - Provider: Kaye Autohold)1112 (MAR Unhold - Provider: Jessenia Norton RN)1805 (Given - Provider: Jessenia Norton RN) 0954 (Given - Provider: Keyla Metzger RN) Continuous Medication Order 06/28/2022 06/29/2022 06/30/2022 0.9 % sodium chloride infusion (CANCELED) IntraVENous, at 100 mL/hr, CONTINUOUS, Starting on Tue06/29/22 at 0800, Pre-op (day of surgery) 0822 (New Bag - Provider: Zunilda Frederick RN)0907 (Paused - Provider: BRODIE Dietrich [...] frequent line interruptions/ long duration, Starting on 06/20/22 at 0654, For piggyback infusion, administer at [...] or less into rate field of order. 722 ([facility] Hold - Provider: Kaye Autohold - Reason: Unreviewed Transfer Orders)1111 ([facility] Unhold - Provider: Jessenia Norton RN) acetaminophen (TYLENOL) suppository 650 mg(Linked Group 1) 650 mg, Rectal, EVERY 6 HOURS PRN, Starting on 06/20/22 at 0654, Until Discontinued, Pain Mild (1-3), Fever, For temp greater than 100.4 F (38 C), Administer if oral route cannot be used. 722 ([facility] Hold - Provider: Kaye Autohold - Reason: Unreviewed Transfer Orders)1111 ([facility] Unhold - Provider: Jessenia Norton RN) acetaminophen (TYLENOL) tablet 650 mg(Linked Group 1) 650 mg, Oral, EVERY 6 HOURS PRN, Starting on 06/20/22 at 0654, Until Discontinued, Pain Mild (1-3), Fever, For temp greater than 100.4 F (38 C), Maximum dose of acetaminophen is 4000 mg from all sources in 24 hours. 722 ([facility] Hold - Provider: Kaye Autohold - Reason: Unreviewed Transfer Orders)1111 ([facility] Unhold - Provider: Jessenia Norton RN) albuterol sulfate HFA (PROVENTIL;VENTOLIN;PROAIR) 108 (90 Base) MCG/ACT inhaler 2 puff 2 puff, Inhalation, EVERY 6 HOURS PRN, Starting on 06/20/22 at 0654, Until Discontinued, Wheezing, Shortness of Breath, Initiate RT Bronchodilator Protocol: Yes - Inpatient Protocol 07 ([facility] Hold - Provider: Kaye Autohold - Reason: Unreviewed Transfer Orders)1111 ([facility] Unhold - Provider: Jessenia Norton RN) ALPRAZolam (XANAX) tablet 0.5 mg 0.5 mg, Oral, 2 TIMES DAILY PRN, Starting on Tue06/25/22 at 1415, Until Discontinued, Anxiety 722 ([facility] Hold - Provider: [facility] Autohold - Reason: Unreviewed Transfer Orders)1111 ([facility] Unhold - Provider: Jessenia Norton RN) dextrose [...] after 60 minutes, discontinue dextrose 10% infusion. 722 ([facility] Hold - Provider: Kaye Autohold - Reason: Unreviewed Transfer Orders)1111 ([facility] Unhold - Provider: Jessenia Norton RN) dextrose [...] 10% at 100 mL/hour and notify provider. 722 ([facility] Hold - Provider: Kaye Autohold - Reason: Unreviewed Transfer Orders)1111 ([facility] Unhold - Provider: Jessenia Norton RN) dextrose [...] at 100 mL/hour and notify provider. 0723 (JUN Hold - Provider: [facility] Autohold - Reason: Unreviewed Transfer Orders)1112 ([facility] Unhold - Provider: Jessenia Norton RN) glucagon (rDNA) injection 1 mg 1 mg, IntraMUSCular, PRN, Starting on Tue06/20/22 at 0654, Until Discontinued, Low blood sugar, Blood glucose less than 70 mg/dL and patient NOT ALERT or NPO and does not have IV access., After administration, attempt intravenous access and start D5W at 100 mL/hr. Repeat blood glucose in 15 minutes x2 and notify provider. 0723 (JUN Hold - Provider: [facility] Autohold - Reason: Unreviewed Transfer Orders)1112 ([facility] Unhold - Provider: Jessenia Norton RN) glucose chewable tablet 16 g 16 g (4 tablet), Oral, PRN, Starting on Tue06/20/22 at 0654, Until Discontinued, Low blood sugar, If blood glucose is LESS THAN 70 mg/dL and patient is alert and tolerating oral. Give 4 tablets (16g) Repeat blood glucose in 15 minutes. If blood glucose is LESS THAN 70 mg/dL, repeat treatment and recheck blood glucose in 15 minutes x 2. If blood glucose remains LESS THAN 70 mg/dL, notify provider. 0723 ([facility] Hold - Provider: [facility] Autohold - Reason: Unreviewed Transfer Orders)1112 ([facility] Unhold - Provider: Jessenia Norton RN) heparin (porcine) injection 1,700 Units 1,700 Units, IntraCATHeter, PRN, Starting on Tue06/29/22 at 1655, Until Discontinued, Line Care, For installation into each catheter limb Arterial 1700 units To be given in Dialysis 1655 (Given - Provider: Lety Mcbride RN) heparin (porcine) injection 1,800 Units 1,800 Units, IntraCATHeter, PRN, Starting on Tue06/29/22 at 1655, Until Discontinued, Line Care, For installation into each catheter limb Venous 1800 units To be given in Dialysis 1657 (Given - Provider: Lety Mcbride RN) heparin (porcine) injection (COMPLETED) ONCE [...] PRN, Pain, Starting on 06/20/22 at 0805 0723 (MAR Hold - Provider: Kaye Autohold - Reason: Unreviewed Transfer Orders)1112 ([facility] Unhold - Provider: Jessenia Norton RN) ondansetron (ZOFRAN) injection 4 mg(Linked Group 3) 4 mg, IntraVENous, EVERY 6 HOURS PRN, Starting on 06/20/22 at 0654, Until Discontinued, Nausea, Vomiting, Administer if oral route cannot be used. 0723 (MAR Hold - Provider: Kaye Autohold - Reason: Unreviewed Transfer Orders)1112 ([facility] Unhold - Provider: Jessenia Norton RN) ondansetron (ZOFRAN-ODT) disintegrating tablet 4 mg(Linked Group 3) 4 mg, Oral, EVERY 8 HOURS PRN, Starting on 06/20/22 at 0654, Until Discontinued, Nausea, Vomiting 0723 ([facility] Hold - Provider: [facility] Autohold - Reason: Unreviewed Transfer Orders)1112 ([facility] Unhold - Provider: Jessenia Norton RN) oxyCODONE (ROXICODONE) immediate release tablet 5 mg 5 mg, Oral, EVERY 4 HOURS PRN, Starting on 06/20/22 at 1322, Until Discontinued, Pain Severe (7-10) 0723 ([facility] Hold - Provider: [facility] Autohold - Reason: Unreviewed Transfer Orders)111 ([facility] Unhold - Provider: Jessenia Norton RN) sod chloride IRR soln 0.9 % irrigation (CANCELED) CONTINUOUS PRN, Starting on Tue06/29/22 at 0934, Intra-op 0934 (New Bag - Provider: Kevin Myles MD) sodium chloride flush 0.9 % injection 5-40 mL 5-40 mL, IntraVENous, PRN, Starting on Tue06/20/22 [...] or Central Line = 20 mL/lumen 0723 (JUN Hold - Provider: Kaye Autohold - Reason: Unreviewed Transfer Orders)1112 ([facility] Unhold - Provider: Jessenia Norton RN) sterile water for irrigation (CANCELED) PRN, Starting on Tue06/29/22 at 0941, Intra-op 0941 (Given - Provider: Kevin Myles MD - Comment: poured on backtable) Linked Groups Order Group 1: acetaminophen (TYLENOL) tablet 650 mgJump to med 650 mg, Oral, EVERY 6 HOURS PRN, Starting on Tue06/20/22 [...] patient NOT ALERT or NPO, Starting on Tue06/20/22 at 0654
Repeat blood glucose in 15 [...] 2137 (Given - Provider: Quinn Vazquez LPN) 2100 (Due) brexpiprazole (REXULTI) tablet 2 mg [...] dose. 1123 (Given - Provider: Saturnino Moe RCP)193 (Given - Provider: Erica Pandya RCP) 1053 [...] modification) on Tue06/30/22 at 2200, Until Discontinued 06 (Given - Provider: Quinn Vazquez LPN)1225 (Given [...] 2137 (Given - Provider: Quinn Vazquez LPN) 2100 (Due) insulin lispro (HUMALOG) injection vial 0-4 [...] 2137 (Given - Provider: Vitor Iniguez LPN) 214 (Given - Provider: Quinn Vazquez LPN) 2100 (Due) pantoprazole (PROTONIX) tablet 40 [...] 2138 (Given - Provider: Vitor Iniguez LPN) 213 (Given - Provider: Quinn Vazquez LPN) 2100 (Due) tamsulosin (FLOMAX) capsule 0.4 mg 0.4 [...] Status: Inactive Member Role [facility] Active Darion Randle MD Primary Care Provider Active Arash Henry MD Admit Provider, Attending Provider Active Team Status: Inactive Member Role Status Dates Darion Randle MD Primary Care Provider Active Saturnino Kaur Jr, MD Emergency Provider Active Team Status: Inactive Member Role Status Dates NON STAFF Primary Care Provider Active Jessica Black MD Emergency Provider Active [employer] Relationship Specialty Start Date End Date Darion Randle MD [address] [place] [address] PCP - General Family Medicine 06/03/22 [employer] Relationship Specialty Start Date End Date Darion Randle MD [address] [place] [address] PCP - General Family Medicine 06/03/22 [employer] Relationship Specialty Start Date End Date Darion Randle MD [address] [place] [address] PCP - General Family Medicine 06/03/22 [employer] Relationship Specialty Start Date End Date Darion Randle MD [address] [place] [address] PCP - General Family Medicine 06/03/22 [employer] Relationship Specialty Start Date End Date Darion Randle MD [address] [place] [address] PCP - General Family Medicine 06/03/22 Team Status: Active Member Role Status Dates NON STAFF Primary Care Provider Active Team Status: Active Member Role Status Dates Ewa Kim , [facility] Emergency Provider Active Darion Randle MD Primary Care Provider Active Arash Henry MD Admit Provider, Attending Provider Active Salesperson Yard Goods Relationship Specialty Start Date End Date Darion Randle MD [address] [place] [address] PCP - General Family Medicine 08/14/22 Lexis Keen PHYSICAL THERAPIST-PILE DRIVER OPERATOR BARGE MOUNTED [address] [place] [address] PCP - [facility] 04/11/23 Salesperson Yard Goods Relationship Specialty Start Date End Date Darion Randle MD [address] [place] [address] PCP - General Family Medicine 08/14/22 Lexis Keen PHYSICAL THERAPIST-PILE DRIVER OPERATOR BARGE MOUNTED 112 [facility] 160 [place] [address] [facility] 04/11/23 Salesperson Yard Goods Relationship Specialty Start Date End Date Darion Randle MD 112 [facility] 110 [place] [address] PCP - General Family Medicine 08/14/22 Lexis Keen, PHYSICAL THERAPIST-PILE DRIVER OPERATOR BARGE MOUNTED 112 [facility] [address] [place] [address] [facility] 04/11/23 Goals (unrecognized section and content) Goals may [...] BE BASED ON THE PRIMARY CLINICAL RECORDS. Left of the [employer] [facility]. provides no warranty or guarantee of the accuracy or completeness of information in this document.
== END 2023-08-05 07:23 | disposition home or self-care (01) ==
LOC: CARD 07:22
PROVIDERS: PCP Family Medicine; Visit Provider Internal Medicine Interventional Cardiology
DX: Q24.5 Malformation of coronary vessels (principal)
CPT/HCPCS: 93005

== ENCOUNTER 2023-09-02 08:57 | Outpatient (OUT) | payer BC, SELFPAY ==
[2023-09-02 09:33] LABS: Hematocrit 39.3 % (42.0-54.0); Hemoglobin 13.3 g/dL (14.0-18.0); Mean Corpuscular HGB Conc 33.8 g/dL (29.9-35.2); Mean Corpuscular Volume 88.7 fL (80.0-94.0); Mean Platelet Volume 10.1 fL (9.5-13.5); Platelet Count 217 10^3/uL (150-450); Red Blood Count 4.43 10^6/uL (4.70-6.10); Red Cell Distribution Width 12.3 % (11.0-15.0); White Blood Count 8.4 10^3/uL (4.0-11.0)
[2023-09-02 09:36] LABS: Bilirubin Urine NEGATIVE (NEGATIVE); Blood Urine SMALL (NEGATIVE); Clarity Urine CLEAR (CLEAR); Color Urine LT. YELLOW (YELLOW); Glucose Urine UA NEGATIVE (NEGATIVE); Ketones Urine NEGATIVE (NEGATIVE); Leukocyte Esterase Urine MODERATE (NEGATIVE); Nitrite Urine NEGATIVE (NEGATIVE); Protein Urine NEGATIVE (NEG/TRACE); Specific Gravity Urine 1.015 (1.005-1.025); Urobilinogen Urine 0.2 EU/dL (0.2-1.0)
[2023-09-02 09:52] LABS: Creatinine Urine Random 81.86 mg/dL (20.00-300.00); Protein Creatinine Ratio Urine 0.37; Total Protein Urine Random 30.6 mg/dL (<=11.9)
[2023-09-02 09:59] LABS: Magnesium 2.2 mg/dL (1.8-2.4); Phosphorus 4.1 mg/dL (2.6-4.7); Uric Acid 6.9 mg/dL (3.5-7.2)
[2023-09-02 11:46] LABS: Alanine Aminotransferase 46 U/L (16-63); Albumin Globulin Ratio 0.9; Albumin Level 3.6 g/dL (3.4-5.0); Alkaline Phosphatase 132 U/L (46-116); Aspartate Amino Transferase 29 U/L (15-37); BUN Creatinine Ratio 29.4; Bilirubin Total 0.3 mg/dL (0.2-1.0); Carbon Dioxide 18.8 mmol/L (21.0-32.0); Chloride 104 mmol/L (98-107); Estimated GFR (African America 40 (>=60); Estimated GFR (Non-African Ame 33 (>=60); Globulin 4.2 g/dL; Glucose 165 mg/dL (74-106); Potassium 3.8 mmol/L (3.5-5.1); Sodium 139 mmol/L (136-145); Total Protein 7.8 g/dL (6.4-8.2)
[2023-09-04 11:07] LABS: PTH, Intact 143 pg/mL (15-65)
== END 2023-09-02 08:58 | disposition home or self-care (01) ==
LOC: LAB 08:58
PROVIDERS: PCP Family Medicine; Visit Provider Internal Medicine Nephrology
DX: E78.2 Mixed hyperlipidemia (principal); Q24.5 Malformation of coronary vessels; N18.4 Chronic kidney disease, stage 4 (severe); N17.9 Acute kidney failure, unspecified; I95.89 Other hypotension; E11.69 Type 2 diabetes mellitus with other specified complication; E66.9 Obesity, unspecified; D64.9 Anemia, unspecified; E79.0 Hyperuricemia without signs of inflammatory arthritis and tophaceous disease; E53.8 Deficiency of other specified B group vitamins; E21.0 Primary hyperparathyroidism; E87.6 Hypokalemia
CPT/HCPCS: 36415; 80053; 80061; 81003; 82248; 82306; 82570; 82728; 82746; 83540; 83550; 83735; 83970; 84100; 84156; 84550; 85027

== ENCOUNTER 2023-09-02 08:59 | Outpatient (OUT) | payer BC, SELFPAY ==
[2023-09-02 10:53] LABS: Bilirubin Direct 0.1 mg/dL (0.0-0.2); Chol HDL Ratio 3.4; Cholesterol 167 mg/dL (<=200); HDL Cholesterol 49 mg/dL (40-60); Triglycerides 90 mg/dL (<=150)
== END 2023-09-02 09:00 | disposition home or self-care (01) ==
LOC: LAB 09:00
PROVIDERS: PCP Family Medicine; Visit Provider Nurse Practitioner Family
DX: E78.2 Mixed hyperlipidemia (principal); Q24.5 Malformation of coronary vessels
CPT/HCPCS: 36415; 80061; 82248

== ENCOUNTER 2024-02-29 09:52 | Outpatient (OUT) | payer MEDICARE, BC, SELFPAY ==
[2024-02-29 10:19] LABS: Hematocrit 41.6 % (42.0-54.0); Hemoglobin 14.4 g/dL (14.0-18.0); Mean Corpuscular HGB Conc 34.6 g/dL (29.9-35.2); Mean Corpuscular Hemoglobin 29.8 pg (25.9-34.0); Mean Platelet Volume 10.3 fL (9.5-13.5); Platelet Count 220 10^3/uL (150-450); Red Blood Count 4.84 10^6/uL (4.70-6.10); Red Cell Distribution Width 12.5 % (11.0-15.0); White Blood Count 9.4 10^3/uL (4.0-11.0)
[2024-02-29 10:25] LABS: Bilirubin Urine NEGATIVE (NEGATIVE); Blood Urine TRACE-I (NEGATIVE); Clarity Urine CLEAR (CLEAR); Color Urine LT. YELLOW (YELLOW); Glucose Urine UA 100 mg/dL (NEGATIVE); Ketones Urine NEGATIVE (NEGATIVE); Leukocyte Esterase Urine MODERATE (NEGATIVE); Nitrite Urine NEGATIVE (NEGATIVE); Protein Urine NEGATIVE (NEG/TRACE); Urobilinogen Urine 0.2 EU/dL (0.2-1.0)
[2024-02-29 10:31] LABS: Creatinine Urine Random 71.36 mg/dL (20.00-300.00); Protein Creatinine Ratio Urine 0.32; Total Protein Urine Random 22.6 mg/dL (<=11.9)
[2024-02-29 10:51] LABS: Albumin Level 3.4 g/dL (3.4-5.0); Anion Gap 21.1; BUN Creatinine Ratio 16.5; Calcium 8.7 mg/dL (8.5-10.1); Carbon Dioxide 17.7 mmol/L (21.0-32.0); Chloride 104 mmol/L (98-107); Estimated GFR (African America 33 (>=60 mL/min/1.73m^2); Estimated GFR (Non-African Ame 27 (>=60 mL/min/1.73m^2); Glucose 275 mg/dL (74-106); Phosphorus 2.7 mg/dL (2.6-4.7); Potassium 3.8 mmol/L (3.5-5.1); Sodium 139 mmol/L (136-145); Uric Acid 6.4 mg/dL (3.5-7.2)
[2024-02-29 11:17] LABS: Percent Iron Saturation 15.6 %
[2024-03-01 02:07] LABS: Vitamin B12 429 pg/mL (232-1245)
[2024-03-01 10:09] LABS: PTH, Intact 162 pg/mL (15-65)
== END 2024-02-29 09:53 | disposition home or self-care (01) ==
LOC: LAB 09:56
PROVIDERS: PCP Family Medicine; Visit Provider Internal Medicine Nephrology
DX: N20.0 Calculus of kidney (principal); E87.20 Acidosis, unspecified; I95.9 Hypotension, unspecified; E87.6 Hypokalemia; E21.0 Primary hyperparathyroidism; E53.8 Deficiency of other specified B group vitamins
CPT/HCPCS: 36415; 80069; 81003; 82043; 82306; 82570; 82607; 82728; 82746; 83540; 83550; 83970; 84156; 84550; 85027

== ENCOUNTER 2024-04-12 14:50 | Outpatient (OUT) | payer BC, MEDICARE, SELFPAY ==
--- NOTE | 2024-04-12 14:56 | XR_ITS ---
[address] [address] Patient Name: STEVEN BAIN MRN: [id number] date: 1960 Sex: M Assigned Patient Location: [facility] Current Patient Location: Accession/Order Number: [id number] Exam Date: 04/12/2024 15:00 Report Date: 04/13/2024 07:48 At the request of: BOSTON ROCHA Procedure: XR abdomen 1V EXAMINATION: XR abdomen 1V HISTORY: Kidney Stone COMPARISON: No relevant comparison available. FINDINGS: KIDNEY/URETER - RIGHT: 1.3 cm right nephrolith KIDNEY/URETER - LEFT: 2.2 cm left nephrolith PELVIS: No visible ureteral calcifications. Any visible calcifications favor phleboliths. BOWEL: No abnormal dilation or deviation. BONES: Mild degenerative spondylosis OTHER: Negative. No abnormal gaseous collections. XR/XR abdomen 1V IMPRESSION: Bilateral nephrolithiasis Electronically authenticated by: MIRELA OLIVAS Date: 04/13/2024 07:48
== END 2024-04-12 14:51 | disposition home or self-care (01) ==
LOC: RAD 14:52
PROVIDERS: PCP Family Medicine; Visit Provider Urology
DX: N20.0 Calculus of kidney (principal)
CPT/HCPCS: 74018

== ENCOUNTER 2024-07-04 13:14 | Outpatient (OUT) | payer BC, MEDICARE, SELFPAY ==
[2024-07-04 14:09] LABS: Creatinine Urine Random 95.68 mg/dL (20.00-300.00); Protein Creatinine Ratio Urine 0.24; Total Protein Urine Random 22.6 mg/dL (<=11.9)
[2024-07-04 14:12] LABS: Hemoglobin 15.3 g/dL (14.0-18.0); Mean Corpuscular Hemoglobin 29.9 pg (25.9-34.0); Mean Corpuscular Volume 87.9 fL (80.0-94.0); Platelet Count 238 10^3/uL (150-450); Red Blood Count 5.12 10^6/uL (4.70-6.10); Red Cell Distribution Width 12.9 % (11.0-15.0); White Blood Count 8.8 10^3/uL (4.0-11.0)
[2024-07-04 14:36] LABS: Percent Iron Saturation 28.9 %
[2024-07-04 15:14] LABS: Albumin Level 3.6 g/dL (3.4-5.0); Anion Gap 13.7; Calcium 9.1 mg/dL (8.5-10.1); Carbon Dioxide 24.8 mmol/L (21.0-32.0); Chloride 103 mmol/L (98-107); Estimated GFR (African America 38 (>=60 mL/min/1.73m^2); Estimated GFR (Non-African Ame 31 (>=60 mL/min/1.73m^2); Glucose 141 mg/dL (74-106); Magnesium 1.9 mg/dL (1.8-2.4); Phosphorus 3.8 mg/dL (2.6-4.7); Potassium 3.5 mmol/L (3.5-5.1); Sodium 138 mmol/L (136-145)
[2024-07-05 11:08] LABS: PTH, Intact 149 pg/mL (15-65)
== END 2024-07-04 13:15 | disposition home or self-care (01) ==
LOC: LAB 13:15
PROVIDERS: PCP Family Medicine; Visit Provider Internal Medicine Nephrology
DX: N39.43 Post-void dribbling (principal); E87.20 Acidosis, unspecified; I95.9 Hypotension, unspecified; E83.42 Hypomagnesemia; N20.0 Calculus of kidney; E87.6 Hypokalemia
CPT/HCPCS: 36415; 80069; 82570; 82728; 83540; 83550; 83735; 83970; 84156; 84550; 85027

== ENCOUNTER 2024-12-26 13:10 | Outpatient (OUT) | payer BC, MEDICARE, SELFPAY ==
--- OUTSIDE RECORDS SUMMARY | 2024-12-17 11:15 | XMS_ITS | Encounter Summary ---
Author Organization [facility] Address [address] [place] [address] Care Team Providers Care Composite Technician Name Role Phone Unavailable Primary Care Provider Unavailabl e Source Comments In the event this information is protected by the Federal Confidentiality of Alcohol and Drug AbusePatient Records regulations: The Federal rules restrict any use of the information to criminally investigate or prosecute any alcohol or drug abuse patient.[facility] Reason for Visit * Reason Comments Follow Up Encounter Details Date Type Department Care Team (Late st Contact Info) Description 12/17/2024 11:15 AM EDT Office Visit Urology [address] [address] Van Acosta MD [address] [place] [address] Acquired buried penis (Primary Dx) Social History Tobacco Use Types Packs/Day Years Used Date Smoking Tobacco: Never Passive Smoke Exposure: Past Smokeless Tobacco: Never Alcohol Use Standard Drinks/Week Comments Yes 0 (1 standard drink = 0.6 oz pur e alcohol) rare Area Deprivation Index Answer Date Jhon rded National Score (1-100), lower number is lower ri sk 78 06/15/2024 State Score (1-10), lower number is lower risk 6 06/15/2024 Data from: https://www.neighborhoodatlas.medicine.[facility]/. Last address used for calculation Anuj Sanchez 06/15/2024 Sex and Gender Information Value Date Recorded Sex Assigned at Not on file Legal Sex Male 2:15 PM EST Gender Identity Not on file Sexual Orientation Not on file documented as of this encounter Progress Notes * Van Acosta MD - 12/17/2024 11:12 AM EDT POST OP CHECK Doing well No pain Did 2 weeks self dilation with clobetasol Panniculectomy well healed Graft looks good, healing well Junction of graft and base of penis left sill with small open area, and ventrally at frenulum but both with good granulation tissue Scrotal incision well healed Meatus is patent but small Will see him in about 6 weeks Van Acosta MD Director, [facility], [facility] [place] documented in this encounter Plan of Treatment Upcoming Encounters Date Type Department Care Team (Late st Contact Info) Description 12/27/2024 1:45 PM EDT Office Visit [facility] Ophthalmology [address] [place] [address] Cinthya Velazquez MD [address] [place] [address] Diagnostics, Eye Tech And [address] [id number] CAT EVAL ref by Dr. Stout 01/09/2025 3:00 PM EDT Office Visit Plastic Surgery [address] [address] [place] [address] [place] [address] 3 week follow up 02/18/2025 10:00 AM EST Office Visit Urology [address] [id number] [place] [address] [place] [address] 2 month follow up add on ok per dr acosta documented as of this encounter Visit Diagnoses Diagnosis Acquired buried penis- Primary Other specified disorder of penis Nuclear senile cataract of left eye- Primary Nuclear senile cataract of right eye documented in this encounter
--- OUTSIDE RECORDS SUMMARY | 2024-12-19 08:20 | XMS_ITS | Encounter Summary ---
Author Organization [facility] Address [address] [facility] [place] [address] Care Team Providers Care Manager Cleaning Name Role Phone Slick Villaseñor MD Primary Care Provider [phone] Rachelle Monge LPN Unavailable Reason for Visit * Reason Comments Tardive dyskinesia Encounter Details Date Type Department Care Team (Late st Contact Info) Description 12/19/2024 8:20 AM EDT Office Visit [facility] [address] [facility] [address] [place] [phone] Gordo Hayden MD [address] [facility] [address] [place] [address] [place] [address] Tardive dyskinesia (Primary Dx); Tremor Social History Tobacco Use Types Packs/Day Years Used Date Smoking Tobacco: Never Smokeless Tobacco: Never Alcohol Use Standard Drinks/Week Comments Not Currently 0 (1 standard drink = 0.6 oz pur e alcohol) no caffiene; B1300 Health Literacy Answer Date Recor ded How often do you need to hav e someone help you when you read instructions, pamphlets, or other written material from your doctor or pharmacy? Rarely 11/28/2023 Humiliation, Afraid, Rape, and Kick questionnair e Answer Date Recorded Within the last year, have y ou been afraid of your partner or ex-partner? No 01/04/2023 Within the last year, have y ou been humiliated or emotionally abused in other ways by your partner or ex-partner? No Within the last year, have y ou been kicked, hit, slapped, or otherwise physically hurt by your partner or ex-partner? No 01/04/2023 Within the last year, have y ou been raped or forced to have any kind of sexual activity by your partner or ex-partner? No 01/04/2023 Social Connection and Isolation Panel [NHANES] A nswer Date Recorded In a typical week, how many times do you talk on the phone with family, friends, or neighbors? Never 01/04/2023 How often do you get together with friends or re latives? Never 01/04/2023 How often do you attend buddhism or mandaeism serv ices? Never 01/04/2023 Do you belong to any clubs o r organizations such as buddhism groups, unions, fraternal or athletic groups, or school groups? No 01/04/2023 How often do you attend meet ings of the clubs or organizations you belong to? Never 01/04/2023 Are you , , di vorced, , never , or living with a partner? 01/04/2023 AUDIT-C Answer Date Recorded Q1: How often do you have a drink containing alc ohol? Monthly or less 01/04/2023 Q2: How many drinks containi ng alcohol do you have on a typical day when you are drinking? 1 or 2 01/04/2023 Q3: How often do you have si x or more drinks on one occasion? Never 01/04/2023 Overall Financial Resource Strain (CARDIA) Answe r Date Recorded How hard is it for you to pa y for the very basics like food, housing, medical care, and heating? Not very hard 01/04/2023 PHQ-2 Answer Date Recorded Patient Health Questionnaire-2 Score 2 12/05/2024 [facility] of Occupat ional Health - Occupational Stress Questionnaire Answer Date Recorded Do you feel stress - tense, restless, nervous, or anxious, or unable to sleep at night because your mind is troubled all the time - these days? Only a little 01/04/2023 Exercise Vital Sign Answer Date Recorde d On average, how many days pe r week do you engage in moderate to strenuous exercise (like a brisk walk)? 2 days 01/04/2023 On average, how many minutes do you engage in exercise at this level? 20 min 01/04/2023 Hunger Vital Sign Answer Date Recorded Within the past 12 months, y ou worried that your food would run out before you got the money to buy more. Never true 01/05/20 Within the past 12 months, t he food you bought just didn't last and you didn't have money to get more. Never true 01/04/2023 PRAPARE - Transportation Answer Date Re corded In the past 12 months, has l ack of transportation kept you from medical appointments or from getting medications? No 12/11 In the past 12 months, has l ack of transportation kept you from meetings, work, or from getting things needed for daily living? No 01/04/2023 Housing Stability Vital Sign Answer Ranjit e Recorded In the last 12 months, was t here a time when you were not able to pay the mortgage or rent on time? No 01/04/2023 In the last 12 months, how many places have you lived? 1 01/04/2023 In the last 12 months, was t here a time when you did not have a steady place to sleep or slept in a correction (including now)? No 01/04/2023 Education Answer Date Recorded What is the highest level of school you have completed or the highest degree you have received? Associate degree: academic program 02/09/2024 Sex and Gender Information Value Date Recorded Sex Assigned at Male 08/31/2022 7:04 PM EDT Legal Sex Male 6:39 PM EDT Gender Identity Male 08/31/2022 7:04 PM EDT Sexual Orientation Choose not to disclose 2022 7:04 PM EDT Occupation Industry Job Start Date Job End Date Not on file Not on file Not on file Not on file documented as of this encounter Last Filed Vital Signs Vital Sign Reading Time Taken Comments Blood Pressure 116/78 12/19/2024 8:36 AM EDT Pulse - - Temperature - - Respiratory Rate - - Oxygen Saturation - - Inhaled Oxygen Concentration - - Weight 139 kg (307 lb) 12/19/2024 8:36 AM EDT Height 190.5 cm (6' 3 ) 12/19/2024 8:36 AM EDT Body Mass Index 38.37 12/19/2024 8:36 AM EDT documented in this encounter Progress Notes * Gordo Hayden MD - 12/19/2024 8:20 AM EDT Images from the original note were not included. CHIEF COMPLAINT REASON FOR VISIT : Patient here for a follow up for tardive dyskinesia. He has had more shakiness in his left hand. Patients spouse is concerned that the Ingrezza cannot be increased to due only having 33% kidney function. Subjective Anish Walden is a 64 y.o. male who presents for Tardive dyskinesia History of Present Illness The patient is a 64-year-old male with tardive dyskinesia who presents for evaluation of hand tremors. Over the past few months, he has noticed an increase in hand tremors, particularly when trying to sleep at night. These tremors are characterized by constant, moving, tapping, and writhing movements,which he can temporarily control by hyper-focusing on them. He reports no associated mouth movements. Once asleep, he does not experience any disturbances and gets a good amount of rest. The tremors are less severe during the day compared to the evening. He also experiences some fatigue during the day. His condition has improved compared to its worst state. He has not tried ropinirole or amantadine before. He does not experience any tremors in his legs. He is currently taking Ingrezza 60 mg andmay need a refill soon. He has stage 4 kidney disease with one atrophied kidney and the other functioning at only 30 percent. He was previously on gabapentin but had to discontinue it due to his kidney condition. A change in medication from Paxil to Zoloft resulted in severe itching, a side effect of Ingrezza. This led to the addition of Vistaril to his regimen, which helps manage his anxiety and itching. SOCIAL HISTORY: Sleep: He reports getting a good amount of sleep once he falls asleep. MEDICATIONS CURRENT MEDS: Paxil 40 mg Vistaril Ingrezza PREVIOUS MEDS: Zoloft Gabapentin Reason for Discontinuation: Kidney issues Review of Systems Const: Denies appetite change, fever, chills. Allergy: Denies medication reaction. Ocular: Denies visual acuity change. ENT: Denies hearing change. Endoc: Denies weight loss. Resp: Denies dyspnoea, wheezing. Cardiac: Denies angina, palpitations. GI: Denies nausea, vomiting. Haem: Denies bleeding. : Denies incontinence. MSK: Denies arthralgias, joint oedema. Derm: Denies rash, hair loss. Neuro: Denies ataxia, tremor. Also see HPI for elements of ROS documented therein and for details of positive findings, which shall supersede the foregoing. Objective Blood pressure 116/78, height 6' 3 , weight 307 lb. Physical Exam Motor Examination Strength: Hand strength shows increased shaking with squeezing. Involuntary Movements: Extra movements noted in hands, described as finger tapping. Vital Signs: Blood pressure 116/78. GENERAL EXAMINATION Appearance: in no acute distress, well developed, well nourished. Head: normocephalic, atraumatic. Eyes: pupils equal, round, reactive to light and accommodation. Ears: normal. Mouth: mucosa moist. Throat: clear. Neck: neck supple, full range of motion, no cervical lymphadenopathy. Skin: no suspicious lesions, warm and dry. Heart: no murmurs, regular rate and rhythm, S1, S2 normal. Lungs: clear to auscultation bilaterally. Abdomen: normal, bowel sounds present, soft, nontender, nondistended. Extremities: no clubbing, cyanosis, or edema. NEUROLOGICAL EXAMINATION Mental Status: The patient is alert and oriented to person, place, and time. Except as noted, thought content, form, and comprehension was normal. Phonation, articulation, resonance, and prosody are normal. Cranial Nerves: Pupils were 4.0 millimeters, equal, round, and reactive to light and accommodation,both directly and consensually. Visual skaggs were full by confrontation. There was no ptosis; extra-ocular movements were full; and there was no nystagmus. Funduscopic exam is normal. Masseters are of normal strength. Facial movement is normal. Hearing is grossly intact. There is no dysarthria. The gag reflex is equal bilaterally. Sternocleidomastoids and trapezii are of normal strength. The tongue protrudes in the midline. Motor: Muscle testing was performed in all four extremities, including at least client care manager, finger abductors, biceps, triceps, deltoid, toe flexors and extensors, tibialis anterior, triceps surae, quadriceps femoris, biceps femoris, and iliopsoases. Tone is normal. Muscle bulk is normal. Fasciculations are not seen . Pronator drift was not evident. Sensory: Sensation to touch, temperature, and vibration was normal in the arms, legs and face. Romberg is negative. Reflexes: Biceps, triceps, brachioradialis are 2/4 bilaterally. Patellar and Achilles reflexes are 2/4 bilaterally. Plantar responses were flexor bilaterally. Coordination: Dysmetria and dysdiadochokinesia are absent. Tremor is absent; dystonia is absent; chorea is absent. Gait And Station: Station and gait are normal. Apraxia and spasticity are not evident. Arm swing isnormal. Toe, heel, and tandem walking are performed without difficulty. Musculoskeletal: Trigger-point tenderness was absent. There is no spasm of the trapezii or paraspinals. Results Assessment & Plan 1. Tardive dyskinesia. He reports increased hand movements, especially at night, which he can sometimes control by hyper-focusing. The symptoms are more pronounced in the evening. He is currently on Ingrezza 60 mg, which has helped but not completely controlled the symptoms. A low dose of amantadine will be initiated once daily in the evening to help manage the extra movements. A prescription for amantadine [facility] be sent to [facility] pharmacy. A refill for Ingrezza will be provided through [facility]. 2. Stage 4 kidney disease. He has one atrophied kidney and the other functioning at only 30 percent. Increasing the dose of current medications is not advisable due to his kidney condition. Amantadine, which is metabolized through the liver, will be used cautiously. 3. Anxiety. He is currently on Vistaril, which helps with anxiety and itching. Previous medications like Paxil and Zoloft were discontinued due to adverse effects. 4. Add amantadine 100 mg po qam to see if increasing Dopamine binding helps decrease the TD symptoms. 5. I counseled the patient on the possible side effects and interactions of medications. This clinical note was created utilizing [employer] documentation system. All information has beenthoroughly reviewed, corrected as necessary, and authenticated by the provider to ensure accuracy and completeness. On occasion, [employer] documentation system erroneously drops words or replaces aspoken word with a similar sounding word. Please notify with any questions or concerns regarding this clinical note. documented in this encounter Plan of Treatment Upcoming Encounters Date Type Department Care Team (Late st Contact Info) Description 01/02/2025 9:10 AM EDT Office Visit [facility] [address] [place] [address] Francisco Houser MD [address] [place] [address] 01/30/2025 8:30 AM EDT Office Visit [facility] 112 [facility] 160 [place] [phone] Anastacia Da Silva APRN-FISH TRAPPER [address] [facility] 160 [place] [address] 03/20/2025 8:00 AM EST Office Visit [facility] [address] [place] [address] Gordo Hayden MD [address] [facility] [address] [address] documented as of this encounter Visit Diagnoses Diagnosis Tardive dyskinesia- Primary Subacute dyskinesia due to drugs Tremor Abnormal involuntary movements Type 2 diabetes mellitus with diabetic neuropathic arthropathy, with long-term current use of insulin ([facility]) documented in this encounter Additional Health Concerns Assessment Noted Time PHQ-9 Depression Total Score: 14 025 11:17 AM EDT documented as of this encounter Care Teams Manager Cleaning Relationship Specialty Start Date End Date Slick Villaseñor MD [address] [facility] 110 [place] [address] PCP - General Family Medicine 08/14/22 Rachelle Monge LPN [address] [facility] 110 [place] [address] 06/29/24 documented as of this encounter
--- OUTSIDE RECORDS SUMMARY | 2024-12-26 13:18 | XMS_ITS | Encounter Summary ---
Author Organization [facility] Address [address] [place] [address] Care Team Providers Care Armor Reconnaissance Specialist Name Role Phone Slick Villaseñor MD Primary Care Provider Anastacia Da Silva FOOD COOKING MACHINE OPERATOR-R D INTERNSHIP Unavailable Belgica Ayers RN Unavailable Rachelle Monge PUBLIC STENOGRAPHER Unavailable Encounter Details Date Type Department Care Team (Late st Contact Info) Description 09/13/2022 Abstract [facility] [place] [facility] 112 [facility] 110 [place] [phone] Slick Villaseñor MD [address] [facility] 110 [place], [place] [id number] Social History Tobacco Use Types Packs/Day Years Used Date Smoking Tobacco: Never Smokeless Tobacco: Never Alcohol Use Standard Drinks/Week Comments Not Currently 0 (1 standard drink = 0.6 oz pur e alcohol) PHQ-2 Answer Date Recorded Patient Health Questionnaire-2 Score 5 09/07/2022 Sex and Gender Information Value Date Recorded Sex Assigned at Male 08/31/2022 7:04 PM EDT Legal Sex Male 6:39 PM EDT Gender Identity Male 08/31/2022 7:04 PM EDT Sexual Orientation Choose not to disclose 2022 7:04 PM EDT documented as of this encounter Plan of Treatment Upcoming Encounters Date Type Department Care Team (Late st Contact Info) Description 01/02/2025 9:10 AM EDT Office Visit [facility] [address] [place] [phone] Francisco Houser MD [address] [place] [address] 01/30/2025 8:30 AM EDT Office Visit [facility] 112 [facility] 160 [place] [phone] Anastacia Da Silva, FOOD COOKING MACHINE OPERATOR-R D INTERNSHIP [address] [facility] 160 [place] [address] 03/20/2025 8:00 AM EST Office Visit [facility] [place] [facility] [address] [facility] 310 [place] [address] Gordo Hayden MD [address] [phone] documented as of this encounter Visit Diagnoses Not on filedocumented in this encounter Additional Health Concerns Assessment Noted Time PHQ-9 Depression Total Score: 13 023 11:02 AM EDT documented as of this encounter Care Teams Armor Reconnaissance Specialist Relationship Specialty Start Date End Date Slick Villaseñor MD 112 [facility] 110 [place] [address] PCP - General Family Medicine 08/14/22 Anastacia Da Silva, FOOD COOKING MACHINE OPERATOR-R D INTERNSHIP 112 [facility] 160 [place] [address] [facility] 12/10/22 Belgica Ayers, HAYDE [address] [place] [address] Clinical Advocate Family Medicine 05/18/24 06/29/24 Rachelle Monge LPN 112 [facility] 110 [place] [address] 06/29/24 documented as of this encounter
--- OUTSIDE RECORDS SUMMARY | 2024-12-26 13:18 | XMS_ITS | Encounter Summary ---
Author Organization [facility] Address [address] [place] [address] Care Team Providers Care Customer Service Analyst Name Role Phone Slick Villaseñor MD Primary Care Provider [phone] Anastacia Da Silva HEELER MACHINE-CLOTH NAPPING SUPERVISOR Unavailable Belgica Ayers RN Unavailable [phone] Rachelle Monge SENIOR SHAREPOINT ARCHITECT Unavailable Encounter Details Date Type Department Care Team (Late st Contact Info) Description 08/05/2023 Clinisync Result Encounter [facility] External Department Unsolicited Provider, Generic External Data Social History Tobacco Use Types Packs/Day Years Used Date Smoking Tobacco: Never Smokeless Tobacco: Never Alcohol Use Standard Drinks/Week Comments Not Currently 0 (1 standard drink = 0.6 oz pure alcohol) no caffiene; Caffeine Intake: More than 4 cups per day soda Humiliation, Afraid, Rape, and Kick questionnair e [...] Never 01/04/2023 How often do you attend hindu or quaker serv ices? Never 01/04/2023 Do you belong to any clubs o r organizations such as hindu groups, unions, fraternal or athletic groups, or [...] Answer Date Recorded Patient Health Questionnaire-2 Score 6 07/27/2023 [facility] Occupat ional [facility] - Occupational Stress Questionnaire Answer Date Recorded [...] money to buy more. Never true 01/05/20 23 Within the past 12 months, t he [...] place to sleep or slept in a residential (including now)? No 01/04/2023 Sex and Gender Information Value Date Recorded Sex Assigned at Male 08/31/2022 7:04 PM EDT Legal Sex Male 6:39 PM EDT Gender Identity Male 08/31/2022 7:04 PM EDT Sexual Orientation Choose not to disclose 2022 7:04 PM EDT Occupation Industry Job Start Date Job End Date Not on file Not on file Not on file Not on file documented as of this encounter Plan of Treatment Upcoming Encounters Date Type Department Care Team (Late st Contact Info) Description 01/02/2025 9:10 AM EDT Office Visit [facility] [address] [place] [address] Francisco Houser MD [address] [place] [address] 01/30/2025 8:30 AM EDT Office Visit [facility] [address] [place] [address] Anastacia Da Silva APRN-CLOTH NAPPING SUPERVISOR [address] [place] [address] 03/20/2025 8:00 AM EST Office Visit [facility] [address] [place] [address] Gordo Hayden MD [address] [facility] [address] [phone] documented as of this encounter Procedures Procedure Name Priority Date/Time Associated Diagnosis Comments ECG 12-LEAD 08/05/2023 7:36 AM EDT documented in this encounter Results * ECG 12-LEAD (08/05/2023 7:36 AM EDT) Anatomical Region Laterality Modality Other 08/05/2023 7:36 AM EDT Narrative 08/08/2023 6:49 AM EDT [address] [address] Electrocardiograph Report Signed Patient: STEVEN BAIN MR#: [id number] : 1960 Acct:[id number] Age/Sex: 63 / M ADM Date: 08/05/23 Loc: CARD Attending Dr: MEKA RUIZ Ordering Physician: MEKA RUIZ Date of Service: 08/05/23 Procedure(s): ECG 12 lead Accession Number(s): [id number] cc: [facility] Test Date: 2023-08-05 Pat Name: STEVEN BAIN Department: Room: - Gender: Male Cash Poster: : 1960 Requested By: MEKA RUIZ M.D. Order Number: [id number] Reading MD: NIKOLAI YUN Measurements Intervals [place] Rate: 63 P: -44 NE: 177 QRS: 22 QRSD: 98 T: 59 QT: 417 QTc: 428 Interpretive Statements SINUS RHYTHM WITH OCCASIONAL VENTRICULAR PREMATURE COMPLEXES Compared to ECG 07/14/2022 22:52:37 Ventricular premature complex(es) now present Possible ischemia no longer present Electronically Signed On 08-08-2023 6:48:58 EDT by NIKOLAI YUN Dictated By: Nikolai Yun D.O. Signed By: 08/08/23 0649 08/08/23 0649 DD/ 5 TD/TT: Liturgical Music Director: Procedure Note Radiology, Radiologist, - 08/08/[address] [address] Electrocardiograph Report Signed Patient: STEVEN BAIN RMR#: [id number] : 1960cct:[id number] Age/Sex: 63 / MADM Date: 08/05/23 Loc: CARD Attending Dr: MEKA RUIZ Ordering Physician: MEKA RUIZ Date of Service: 08/05/23 Procedure(s): ECG 12 lead Accession Number(s): [id number] cc: [facility] Test Date: 2023-08-05 Pat Name: STEVEN BAIN Department: Room: - Gender: Male Cash Poster: : 1960 Requested By: MEKA RUIZ M.D. Order Number: [id number] Reading MD: NIKOLAI YUN Measurements Intervals [place] Rate: 63 P: -44 NE: 177 QRS: 22 QRSD: 98 T: 59 QT: 417 QTc: 428 Interpretive Statements SINUS RHYTHM WITH OCCASIONAL VENTRICULAR PREMATURE COMPLEXES Compared to ECG 07/14/2022 22:52:37 Ventricular premature complex(es) now present Possible ischemia no longer present Electronically Signed On 08-08-2023 6:48:58 EDT by NIKOLAI YUN Dictated By: Nikolai Yun D.O. Signed By:08/08/23 0649 08/08/23 0649 DD/ 5 TD/TT: Liturgical Music Director: Generic External Data Provider [facility] Final Result documented in this encounter Visit Diagnoses Not on filedocumented in this encounter Additional Health Concerns Assessment Noted Time PHQ-9 Depression Total Score: 20 024 11:33 AM EDT documented as of this encounter Care Teams Customer Service Analyst Relationship Specialty Start Date End Date Slick Villaseñor MD [address] [facility] [address] [place] [address] PCP - General Family Medicine 08/14/22 Anastacia Da Silva APRN-CLOTH NAPPING SUPERVISOR [address] [facility] [address] [place] [address] PCP - [place] [employer] 12/10/22 Belgica Ayers, RN [address] [place] [address] [facility] 05/18/24 06/29/24 Rachelle Monge LPN [address] [facility] [address] [place] [address] 06/29/24 documented as of this encounter
--- OUTSIDE RECORDS SUMMARY | 2024-12-26 13:18 | XMS_ITS | Encounter Summary ---
Author Organization [facility] Address [address] [place] [address] Care Team Providers Care Trim Sawyer Name Role Phone Slick Villaseñor MD Primary Care Provider [phone] Rachelle Monge LPN Unavailable Encounter Details Date Type Department Care Team (Latest Contact Info) Description 12/19/2024 Travel Social History Tobacco Use Types Packs/Day Years [...] Never 01/04/2023 How often do you attend taoist or rastafari serv ices? Never 01/04/2023 Do you belong to any clubs o r organizations such as taoist groups, unions, fraternal or athletic groups, or [...] Recorded Patient Health Questionnaire-2 Score 2 12/05/2024 [facility] - Occupational Stress [...] place to sleep or slept in a jail (including now)? No 01/04/2023 Education Answer Date [...] 01/02/2025 9:10 AM EDT Office Visit [facility] [address] [place] [address] Francisco Houser MD [address] [place] [address] 01/30/2025 8:30 AM EDT Office Visit [facility] [address] [facility] [address] [place] [address] Anastacia Da Silva, ORE TRIMMER-AUDIO TECHNICIAN [address] [facility] [address] [place] [address] 03/20/2025 8:00 AM EST Office Visit [facility] [address] [facility] [address] [place] [address] Gordo Hayden MD [address] [facility] [address] [phone] documented as of this encounter Visit Diagnoses Not on filedocumented in this encounter Additional Health Concerns Assessment Noted Time PHQ-9 Depression Total Score: 14 025 11:17 AM EDT documented as of this encounter Care Teams Trim Sawyer Relationship Specialty Start Date End Date Slick Villaseñor MD [address] [facility] [address] [place] [address] PCP - General Family Medicine 08/14/22 Rachelle Monge LPN [address] [facility] [address] [place] [address] 06/29/24 documented as of this encounter
--- OUTSIDE RECORDS SUMMARY | 2024-12-26 13:18 | XMS_ITS | Clinical Summary ---
Author Organization [facility] Address [address] [place] [address] Care Team Providers Care Cell Tuber Machine Name Role Phone Slick Villaseñor MD Primary Care Provider [phone] Rachelle Monge LPN Unavailable Allergies Active Allergy Reactions Criticality Noted Date Comments Mirtazapine Anxiety Low 10/16/2024 Medications atorvastatin (Lipitor) 20 MG tabletIndications:P ure hyperglyceridemia Take 1 tablet (20 mg) by mouth in the morning. 100 tablet 4 023 Active Lancets (OneTouch Delica Plus [id number]) misc 023 Active furosemide (Lasix) 40 MG tablet Take 40 mg by mouth Daily 023 Active potassium chloride CR (K-Tab) 20 MEQ ER tablet Take 20 mEq by mouth Daily 024 Active sodium bicarbonate 650 MG tablet Take 650 mg by mouth in the morning and 650 mg before bedtime. Active folic acid (Folvite) 1 MG tablet Take 1 tablet by mouth Daily Active QUEtiapine (SEROquel) 25 MG tabletIndications:G AD (generalized anxiety disorder) Take 1 tablet (25 mg) by mouth 2 (two) times a day as needed (Anxiety) 60 tablet 2 024 Active ferrous sulfate 325 (65 Fe) MG tablet Take 1 tablet by mouth in the morning and 1 tablet before bedtime. 024 Active allopurinol (Zyloprim) 100 MG tabletIndications:I diopathic chronic gout without tophus, unspecified site Take 1 tablet (100 mg) by mouth in the morning. 90 tablet 3 Active omeprazole (PriLOSEC) [address] capsuleIndications: Duodenal ulcer Take 1 capsule (40 mg) by mouth in the morning. Do not crush or chew.. 90 capsule 3 Active Additional Information Patient taking differently: 20 mgOral Daily RT, Morning, Do not crush or chew., Reported on 12/05/2024 magnesium oxide (Mag-Ox) 400 (240 Mg) MG tabletIndications:I ntention tremor Take 1 tablet (400 mg) by mouth Daily 90 tablet 3 025 2025 Active thiamine (Vitamin B-1) 100 MG tabletIndications:T ardive dyskinesia Take 1 tablet (100 mg) by mouth Daily 90 tablet 3 025 2025 Active insulin pen needle (BD Pen Needle Micro U/F) 32G x 6 mm miscIndications:Radha betes mellitus due to underlying condition, uncontrolled, with hyperglycemia (HCC) USE DIRECTED UNDER THE SKIN TWICE DAILY 100 each 3 Active insulin regular (HumuLIN R U-500 KWIKPEN) 500 UNIT/ML CONCENTRATED injectionIndication s:Type 2 diabetes mellitus with diabetic neuropathic arthropathy, with long-term current use of insulin ([facility]) Inject 50 Units under the skin in the morning and 50 Units in the evening and 50 Units before bedtime. 50-80 units BID. 27 mL 1 025 2024 Active OneTouch Verio test stripIndications:Ty pe 2 diabetes mellitus with other diabetic neurological complication (HCC) USE TO TEST 3 TIMES A DAY 300 strip 2 025 Active PARoxetine (Paxil) 20 MG tabletIndications:G AD (generalized anxiety disorder) Take 1 tablet (20 mg) by mouth in the morning. 30 tablet 2 025 Active hydrOXYzine pamoate (Vistaril) 50 MG capsuleIndications: BRITTANY (generalized anxiety disorder) Take 1 capsule (50 mg) by mouth 2 (two) times a day as needed for itching or anxiety 180 capsule Active LORazepam (Ativan) 0.5 MG tabletIndications:P anic attack Take 1 tablet (0.5 mg) by mouth Daily as needed for anxiety 30 tablet Active midodrine (Proamatine) 2.5 MG tabletIndications:C hronic kidney disease, stage 4 (severe) ([facility]),Orthostatic hypotension Take 1 tablet (2.5 mg) by mouth Daily Daily in the morning, may take second dose if dizzy and BP is low 90 tablet 025 2024 Active Klayesta 160564 UNIT/GM powder APPLY TO AFFECTED AREA 4 TIMES A DAY Active QUEtiapine (SEROquel) 200 MG tabletIndications:S samantha recurrent major depression without psychotic features ([facility]) Take 1 tablet (200 mg) by mouth at bedtime 30 tablet 2 025 2024 Active amantadine (Symmetrel) 100 MG tabletIndications:T ardive dyskinesia,Tremor Take 1 tablet (100 mg) by mouth Daily 30 tablet 3 025 2024 Active Valbenazine Tosylate (Ingrezza) 60 MG capsuleIndications: Tardive dyskinesia Take 60 mg by mouth Daily 90 capsule 3 025 2024 Active Valbenazine Tosylate (Ingrezza) 60 MG capsuleIndications: Tardive dyskinesia Take 60 mg by mouth Daily 90 capsule 3 025 2024 Discontinued(R eorder) Dulaglutide (Trulicity) 3 MG/0.5ML solution auto-injectorIndica tions:Type 2 diabetes mellitus with diabetic neuropathic arthropathy, with long-term current use of insulin (HCC) Inject 3 mg under the skin 1 (one) time per week 6 mL 1 025 2024 Discontinued QUEtiapine (SEROquel) 200 MG tabletIndications:S evere recurrent major depression without psychotic features (HCC) Take 1 tablet (200 mg) by mouth at bedtime 30 tablet 2 025 2024 Discontinued(R eorder) Docusate Sodium (DSS) 100 MG capsule Take 100 mg by mouth in the morning and 100 mg in the evening. 025 2024 Discontinued(T herapy completed) Active Problems Problem Noted Date Diagnosed Date Insulin dose changed 11/08/2024 GERD (gastroesophageal reflux disease) Ascending aorta dilatation 10/23/2024 Acquired buried penis 08/28/2024 Nodule of kidney 06/14/2024 Phimosis 04/19/2024 BPH with urinary obstruction 04/19/2024 Type 2 diabetes mellitus wit h diabetic chronic kidney disease 04/19/2024 Chronic kidney disease, stage 4 (severe) 025 Type 2 diabetes mellitus wit h diabetic peripheral angiopathy without gangrene 04/19/2024 BMI 39.0-39.9,adult 04/19/2024 Nephrolithiasis 02/29/2024 Major depressive disorder, r ecurrent severe without psychotic features 12/15/2023 Hyperparathyroid bone disease 10/09/2023 Folate deficiency 10/09/2023 Anemia 10/09/2023 Hypokalemia 10/09/2023 Tardive dyskinesia 07/27/2023 Panic attack 03/08/2023 Assessment & Plan (03/08/2023 3:11 PM EST): Was in the psyche unit for 2 weeks Consider Sojourn Lorazepam 1 mg every 8 hours x 72 hrs. Consider Direct admit Confusion 03/08/2023 Assessment & Plan (03/08/2023 3:12 PM EST): Consider direct admit Screening PSA (prostate specific antigen) 2022 Morbid (severe) obesity due to excess calories 0 12/06/2022 Assessment & Plan (12/06/2022 3:40 PM EDT): Needs Weight loss Insomnia 12/05/2022 Microalbuminuric diabetic nephropathy 12/05/2022 Nephrosclerosis 12/05/2022 Stage 5 chronic kidney disease 08/10/2022 Dysthymia 08/10/2022 History of anemia of chronic disease 07/17/2022 History of hydronephrosis 07/15/2022 Orthostatic hypotension 07/15/2022 Syncope 07/15/2022 Dependent on hemodialysis 06/29/2022 Hyponatremia 06/21/2022 Bandemia 06/20/2022 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 Tremor 06/07/2022 BRITTANY (generalized anxiety disorder) 06/03/2022 Debility 06/01/2022 Atrophy of right kidney 05/28/2022 Urinary tract obstruction by kidney stone 2022 Hyperlipidemia 05/28/2022 Type 2 diabetes mellitus with other specified co mplication 05/28/2022 Overview (02/23/2024): Problem List Diagnosis Replacement Utility 01/10/2024 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/04/2021 intermediate (current) use of insulin 01/24/2019 Lymphedema 08/24/2018 Chronic gouty arthritis 08/15/2018 Disorder of nervous system due to type 2 diabete s mellitus 08/15/2018 Duodenal ulcer 05/29/2018 Constipation 05/15/2018 Chest pain 08/12/2016 Dizziness 08/12/2016 Dyspnea 08/12/2016 Obstructive sleep apnea syndrome 08/12/2016 Peripheral vascular disease 07/06/2016 Calculus of ureter 06/27/2015 Migraine without aura, not refractory 06/27/2015 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 03/18/2015 Type 2 diabetes mellitus with diabetic polyneuro elisa 02/20/2015 Edema 02/06/2015 Type 2 diabetes mellitus with hyperglycemia 01/10 Primary hypertension 02/06/2015 Resolved Problems Problem Noted Date Diagnosed Date Resolved Date H/O neuropathy 06/14/2024 08/28/2024 UTI (urinary tract infection) 07/19/2023 04/19/2024 Hyperventilation 07/19/2023 08/28/2024 Acute respiratory alkalosis 07/19/2023 04/19/2024 Acute cystitis without hematuria 03/08/2023 04/19/2024 Assessment & Plan (03/08/2023 3:09 PM EST): Add Probiotic to help replenish the good bacteria that are destroyed by the Antibiotics Florastor Florajen Align or try Activia in Yogurt Probiotics reduce the risk of antibiotic induced diarrhea Acute idiopathic gout of left foot 12/05/2022 04/19/2024 Benign prostatic hyperplasia 12/05/2022 04/19/2024 Major depressive disorder, s pamela episode, moderate 08/10/2022 04/21/2023 Adjustment disorder with depressed mood 08/10/2022 09/07/2022 Anxiety 08/10/2022 02/15/2023 End stage renal disease 07/15/2022 05/ Metabolic acidosis 06/29/2022 Pyelonephritis of left kidney 06/20/2022 08/28/2024 Major depressive disorder, r ecurrent, moderate 06/07/2022 04/19/2024 Assessment & Plan (12/06/2022 3:41 PM EDT): Sees Anastacia and Goes to [facility] counseling Acute kidney injury superimposed on CKD 05/28/2022 04/19/2024 DAISY (acute kidney injury) 05/28/2022 Assessment & Plan (12/06/2022 3:30 PM EDT): Patient is off dialysis Finger injury, right, initial encounter 12/25/2021 04/19/2024 Overview (12/05/2022): Added automatically from request for surgery [id number] Class 3 severe obesity due t o excess calories with body mass index (BMI) of 40.0 to 44.9 in adult 01/15/2021 08/28/2024 Mononeuropathy of lower extremity 08/15/2018 08/28/2024 Diabetic renal disease 02/20/201504/19 Assessment & Plan (12/06/2022 3:31 PM EDT): Sees Dr. Houser Diabetes mellitus due to und erlying condition, uncontrolled, with hyperglycemia 02/06/2015 04/19/2024 Encounters Date Type Department Care Team Description 12/19/2024 8:20 AM EDT Office Visit [facility] [address] [address] Gordo Hayden MD Tardive dyskinesia (Primary Dx); Tremor 12/19/2024 Bamboo flowsheet [facility] [address] [place] [address] Gordo Hayden MD 12/19/2024 Travel 12/06/2024 Telephone [facility] [address] [place] [address] Francisco Houser MD Medication Problem 12/05/2024 11:00 AM EDT Office Visit [facility] [address] [place] [address] Estefania-Nossek, Anastacia M, FORENSIC SCIENCE EXAMINER-AGRICULTURIST Severe recurrent major depression without psychotic features (HCC) 12/05/2024 Bamboo flowsheet [facility] [address] [place] [address] Estefania-NossekStacya M, FORENSIC SCIENCE EXAMINER-AGRICULTURIST 12/05/2024 Travel 12/03/2024 Patient Outreach [facility] [address] [place] [address] Rachelle Monge LPN 11/27/2024 Refill [facility] [address] [place] [address] Estefania-StefaniasekStacya M, FORENSIC SCIENCE EXAMINER-AGRICULTURIST BRITTANY (generalized anxiety disorder) 11/26/2024 Patient Outreach [facility] [address] [place] [address] Rachelle Monge LPN 11/24/2024 Refill [facility] [address] [facility] [address] [place] [address] Estefania-Kathi Mitchellicia M, FORENSIC SCIENCE EXAMINER-AGRICULTURIST BRITTANY (generalized anxiety disorder) 11/19/2024 Patient Outreach [facility] [address] [place] [address] Rachelle Monge LPN 11/13/2024 Patient Outreach [facility] [address] [place] [address] Rachelle Monge LPN 11/09/2024 Patient Outreach [facility] [address] [place] [address] Rachelle Monge, [facility] 11/07/2024 Telephone [facility] [place] [facility] [address] [place] [address] Alia Schilling, [facility] 11/07/2024 Patient Outreach [facility] [address] [place] [address] Rachelle Monge, [facility] 10/16/2024 11:00 AM EDT Office Visit [facility] [place] [facility] [address] [place] [address] Anastacia Da Silva, FORENSIC SCIENCE EXAMINER-AGRICULTURIST Panic attack (Primary Dx); BRITTANY (generalized anxiety disorder) 10/16/2024 Bamboo flowsheet [facility] [place] [facility] [address] [place] [address] Anastacia Da Silva, FORENSIC SCIENCE EXAMINER-AGRICULTURIST 10/16/2024 Travel from Last 3 Months Immunizations Immunization Administration Dates Next Due Hep B, Dialysis 08/13/2022,07/21/2022 Influenza, injectable, quadrivalent, preservativ e free 04/19/2024,02/09/2023 Family History Medical History Relation Name Comments Depression Father Other Father Lungs deformed Stroke Father Heart disease Mother Other Mother Pacemaker MD2 Diabetes Sister half sister Kidney cancer Sister half sister Obesity Sister half sister Relation Name Status Comments Daughter x 2 Alive Father Mother Sister half sister Social History Tobacco Use Types Packs/Day Years Used Date Smoking Tobacco: Never Smokeless Tobacco: Never Tobacco Cessation:Counseling Given: Not Answered Alcohol Use Standard Drinks/Week Comments Not Currently [...] Never 01/04/2023 How often do you attend evangelical or sabianism serv ices? Never 01/04/2023 Do you belong to any clubs o r organizations such as evangelical groups, unions, fraternal or athletic groups, or [...] Recorded Patient Health Questionnaire-2 Score 2 12/05/2024 [facility] - Occupational Stress [...] place to sleep or slept in a half-way (including now)? No 01/04/2023 Education Answer Date [...] file Not on file Not on file Last Filed Vital Signs Vital Sign Reading Time Taken Comments Blood Pressure 116/78 12/19/2024 8:36 AM EDT Pulse 67 12/05/2024 11:07 AM EDT Temperature - - Respiratory Rate 16 08/28/2024 1:13 PM EDT Oxygen Saturation 97% 08/28/2024 1:13 PM EDT Inhaled Oxygen Concentration - - Weight 139 kg (307 lb) 12/19/2024 8:36 AM EDT Height 190.5 cm (6' 3 ) 12/19/2024 8:36 AM EDT Body Mass Index 38.37 12/19/2024 8:36 AM EDT Plan of Treatment Upcoming Encounters Date Type Department Care Team (Late st Contact Info) Description 01/02/2025 9:10 AM EDT Office Visit [facility] [address] [place] [address] Francisco Houser MD [address] [place] [address] 01/30/2025 8:30 AM EDT Office Visit [facility] [address] [facility] [address] [place] [address] Estefania-Anastacia Mitchell, FORENSIC SCIENCE EXAMINER-AGRICULTURIST [address] [facility] [address] [place] [address] 03/20/2025 8:00 AM EST Office Visit [facility] [address] [facility] [address] [place] [address] Gordo Hayden MD 4005 [facility] [address] [address] Health Maintenance Due Date Last Done Comments CT Colonography 1962 FIT-DNA 1962 FIT 1962 FOBT 1962 Sigmoidoscopy 1962 Diabetes: Retinopathy Screening 05/19/2020 9 Diabetes: Hemoglobin A1C 11/09/2024 025, 06/15/2024, 05/10/2024, Additional history exists Influenza Vaccine (#1) 2024 04/19/2024, 2022 Diabetes: Urine Protein Screening 02/28/2025 02/29/2024, 11/25/2021, 01/15/2020 Colonoscopy 06/09/2028 06/09/2018 Colorectal Cancer Screening 06/09/2028 Procedures Procedure Name Priority Date/Time Associated Diagnosis Comments POCT GLYCOSYLATED HEMOGLOBIN (HGB A1C) Routine 08/09/2024 9:55 AM EDT Type 2 diabetes mellitus with diabetic neuropathic arthropathy, with long-term current use of insulin (HCC) MICROALBUMIN/ CREATININE RATIO Routine 11/25/2021 COLONOSCOPY Routine 06/09/2018 12:00 PM EST COLOR FUNDUS PHOTOGRAPHY - OU - BOTH EYES Routine 05/19/2018 12:00 PM EST from Last 3 Months or Most Recently Relevant to Health Maintenance Results * POCT glycosylated hemoglobin (Hb A1C) docked device (08/09/2024 9:55 AM EDT) Hemoglobin A1C 7.0 Blood Venous blood specimen / Unknown 08/09/2024 9:55 AM EDT Francisco Houser MD POINT OF CARE TEST ENTER/EDIT ORDERABLES Final Result * (ABNORMAL) MICROALBUMIN/ CREATININE RATIO (11/25/2021) CREATININE, URINE 169.4 Not Estab. [facility] MICROALBUMIN, URINE 136.7 Not Estab. [facility] MICROALB/CREAT RATIO 81(HH) 0 - 29 [facility] Comment: Normal: 0 - 29 Moderately increased: 30 - 300 Severely increased: >300 PERFORMING LAB: see note [facility] Comment:1 - [facility] - [address] [address] ,Ext. [phone] 11/25/2021 us Slick Villaseñor MD [facility] Final Result [facility] * Colonoscopy (06/09/2018 12:00 PM EST) Anatomical Region Laterality Modality Endoscopy 06/09/2018 12:0 0 PM EST Narrative 06/09/2018 12:00 PM EST PERFORMED AT [facility] LOCATION:[id number] IBS and diverticulosis Procedure Note CONVERSION, GENERIC - 08/25/2022 PERFORMED AT [facility] LOCATION:[id number] IBS and diverticulosis Slick Villaseñor MD ENDOSCOPY PROCEDURE ORDERABLES F inal Result * Color Fundus Photography - OU - Both Eyes (05/19/2018 12:00 PM EST) Anatomical Region Laterality Modality Head Fundus Photograp hy 05/19/2018 12:0 0 PM EST Narrative 05/19/2018 12:00 PM EST PERFORMED AT [facility] LOCATION:[id number] No Retinopathy Procedure Note CONVERSION, GENERIC - 08/25/2022 PERFORMED AT [facility] LOCATION:[id number] No Retinopathy Slick Villaseñor MD OPHTH PHOTOGRAPHY Final Result from Last 3 Months or Most Recently Relevant to Health Maintenance Insurance [facility] MEDICARE Care Teams Cell Tuber Machine Relationship Specialty Start Date End Date Slick Villaseñor MD [address] [facility] [address] [place] [address] PCP - General Family Medicine 08/14/22 Rachelle Monge LPN 112 [facility] 110 [place] [address] 06/29/24
--- OUTSIDE RECORDS SUMMARY | 2024-12-26 13:18 | XMS_ITS | Encounter Summary ---
Author Organization [facility] Address [address] [place] [address] Care Team Providers Care Flame Hardening Machine Setter Name Role Phone Slick Villaseñor MD Primary Care Provider [phone] Anastacia Da Silva VISION CARE ASSOCIATE-KEYBOARD INSTRUMENT TUNER Unavailable Belgica Ayers RN Unavailable [phone] Rachelle Monge SCOOP DRIVER Unavailable Encounter Details Date Type Department Care Team (Late st Contact Info) Description 03/10/2023 Abstract [facility] [place] [facility] 112 [facility] 110 [place] [address] Slick Villaseñor MD 112 [facility] 110 [place], [place] [id number] Social History Tobacco Use Types Packs/Day Years Used Date Smoking Tobacco: Never Smokeless Tobacco: Never Alcohol Use Standard Drinks/Week Comments Not Currently 0 (1 standard drink = 0.6 oz pur e alcohol) no caffiene Humiliation, Afraid, Rape, and Kick questionnair e [...] Never 01/04/2023 How often do you attend confucianist or temple serv ices? Never 01/04/2023 Do you belong to any clubs o r organizations such as confucianist groups, unions, fraternal or athletic groups, or [...] Answer Date Recorded Patient Health Questionnaire-2 Score 3 01/26/2023 [facility] ional Health - Occupational [...] place to sleep or slept in a custodial (including now)? No 01/04/2023 Sex and Gender [...] EDT Office Visit [facility] [address] [place] [address] Francisco Houser MD [address] [place] [address] 01/30/2025 8:30 AM EDT Office Visit [facility] [address] [facility] [address] [place] [address] Anastacia Da Silva APRN-KEYBOARD INSTRUMENT TUNER [address] [place] [address] 03/20/2025 8:00 AM EST Office Visit [facility] [address] [facility] [address] [place] [address] Gordo Hayden MD [address] [phone] documented as of this encounter Visit Diagnoses Not on filedocumented in this encounter Additional Health Concerns Assessment Noted Time PHQ-9 Depression Total Score: 14 023 2:37 PM EDT documented as of this encounter Care Teams Flame Hardening Machine Setter Relationship Specialty Start Date End Date Slick Villaseñor MD [address] [facility] 110 [place] [address] PCP - General Family Medicine 08/14/22 Anastacia Da Silva, VISION CARE ASSOCIATE-KEYBOARD INSTRUMENT TUNER [address] [facility] 160 [place] [address] PCP - [facility] 12/10/22 Belgica Ayers, RN [address] [place] [address] Clinical [facility] 05/18/24 06/29/24 Rachelle Monge LPN [address] [facility] [address] [place] [address] 06/29/24 documented as of this encounter
--- OUTSIDE RECORDS SUMMARY | 2024-12-26 13:18 | XMS_ITS | Encounter Summary ---
Author Organization [facility] Address [address] [facility] [place] [address] Care Team Providers Care Talent Advisor Name Role Phone Slick Villaseñor MD Primary Care Provider [phone] Rachelle Monge LPN Unavailable Encounter Details Date Type Department Care Team (Late st Contact Info) Description 12/19/2024 Bamboo flowsheet [facility] [address] [place] [address] Gordo Hayden MD 06[address] [facility] [address] [address] Social History Tobacco Use Types Packs/Day Years [...] Never 01/04/2023 How often do you attend religious or baptist serv ices? Never 01/04/2023 Do you belong to any clubs o r organizations such as religious groups, unions, fraternal or athletic groups, or [...] Recorded Patient Health Questionnaire-2 Score 2 12/05/2024 [facility] Occupat ional Health - Occupational Stress [...] place to sleep or slept in a usp (including now)? No 01/04/2023 Education Answer Date [...] EDT Office Visit [facility] [address] [place] [address] Francisco Houser MD [address] [place] [address] 01/30/2025 8:30 AM EDT Office Visit [facility] 112 [facility] 160 [place] [address] Anastacia Da Silva, TABLE GAMES DUAL RATE SUPERVISOR-YARN BLEACHING MACHINE OPERATOR 112 [facility] 160 [place] [address] 03/20/2025 8:00 AM EST Office Visit [facility] [place] [facility] [address] [facility] [address] [place] [address] Gordo Hayden MD 3452 [facility] [address] [id number] documented as of this encounter Visit Diagnoses Not on filedocumented in this encounter Additional Health Concerns Assessment Noted Time PHQ-9 Depression Total Score: 14 025 11:17 AM EDT documented as of this encounter Care Teams Talent Advisor Relationship Specialty Start Date End Date Slick Villaseñor MD 112 [facility] 110 [place] [address] PCP - General Family Medicine 08/14/22 Rachelle Monge LPN 112 [facility] 110 [place] [address] 06/29/24 documented as of this encounter
--- OUTSIDE RECORDS SUMMARY | 2024-12-26 13:18 | XMS_ITS | Encounter Summary ---
Author Organization [facility] Address [address] [place] [address] Care Team Providers Care Food Checkers And Cashiers Supervisor Name Role Phone Slick Villaseñor MD Primary Care Provider [phone] Anastacia Da Silva RETAIL DIRECTOR-CLINICAL CYTOGENETICIST SCIENTIST Unavailable Belgica Ayers RN Unavailable [phone] Rachelle Monge CONTRACT NEGOTIATION SPECIALIST Unavailable Encounter Details Date Type Department Care Team (Late st Contact Info) Description 09/13/2023 Abstract [facility] [place] [facility] 112 [facility] 110 [place] [id number] Slick Villaseñor MD 112 [facility] 110 [place], [place] [id number] Social History Tobacco Use Types Packs/Day Years Used Date Smoking Tobacco: Never Smokeless Tobacco: Never Alcohol Use Standard Drinks/Week Comments Not Currently 0 (1 standard drink = 0.6 oz pur e alcohol) no caffiene; Humiliation, Afraid, Rape, and Kick questionnair e [...] Never 01/04/2023 How often do you attend restoration or jew serv ices? Never 01/04/2023 Do you belong to any clubs o r organizations such as restoration groups, unions, fraternal or athletic groups, or [...] Date Recorded Patient Health Questionnaire-2 Score 6 09/15/2023 [facility] of Occupat ional Health - Occupational [...] place to sleep or slept in a halfway (including now)? No 01/04/2023 Sex and Gender [...] on file documented as of this encounter Functional Status * Over the past 2 weeks, how often have you been bothered by any of the following problems? Question Answer Date of Assessment Author Little interest or pleasure in doing things Nearly every day 09/15/2023 2:03 PM Cindy Talbert i, LPN Feeling down, depressed, or hopeless Nearly every day 09/15/2023 2:03 PM Adrianne Talbert LP N Patient Health Questionnaire-2 Score 6 09/15/2023 2:03 PM Adrianne Talbert LPN * Question Answer Date of Assessment Author Trouble falling or staying asleep, or sleeping too much Several days 09/15/2023 2:03 PM Adrianen Talbert LP N Feeling tired or having little energy Nearly every day 09/15/2023 2:03 PM EDT Adrianne Stout LP N Poor appetite or overeating Not at all 09/15/2023 2:03 PM EDT Adrianne Stout LP N Feeling bad about yourself - or that you are a failure or have let yourself or your family down Several days 09/15/2023 2:03 PM EDT Adrianne Stout LP N Trouble concentrating on things, such as reading the newspaper or watching television Nearly every day 09/15/2023 2:03 PM EDT Adrianne Stout LP N Moving or speaking so slowly that other people could have noticed? Or the opposite - being so fidgety or restless that you have been moving around a lot more than usual. Not at all 09/15/2023 2:03 PM EDT Adrianne Stout LP N Thoughts that you would be better off or hurting yourself in some way Not at all 09/15/2023 2:03 PM EDT Adrianne Stout L PN Patient Health Questionnaire-9 Score 14 09/15/2023 2:03 PM EDT Adrianne Stout LPN documented as of this encounter Plan of Treatment Upcoming Encounters Date Type Department Care Team (Late st Contact Info) Description 01/02/2025 9:10 AM EDT Office [facility] [address] [place] [phone] Francisco Houser MD [address] [place] [address] 01/30/2025 8:30 AM EDT Office [facility] [address] [facility] [address] [place] [address] Anastacia Da Silva APRN-CLINICAL CYTOGENETICIST SCIENTIST [address] [facility] [address] [place] [id number] 03/20/2025 8:00 AM EST Office Visit [facility] [address] [place] [address] Gordo Hayden MD 2073 [facility] [address] [address] documented as of this encounter Visit Diagnoses Not on filedocumented in this encounter Additional Health Concerns Assessment Noted Time PHQ-9 Depression Total Score: 20 024 11:33 AM EDT documented as of this encounter Care Teams Food Checkers And Cashiers Supervisor Relationship Specialty Start Date End Date Slick Villaseñor MD 112 [facility] 110 [place] [address] PCP - General Family Medicine 08/14/22 Anastacia Da Silva APRN-CLINICAL CYTOGENETICIST SCIENTIST 112 [facility] 160 [place] [address] [facility] 12/10/22 Belgica Ayers, RN [address] [place] [address] Clinical Advocate Family Medicine 05/18/24 06/29/24 Rachelle Monge LPN 112 [facility] 110 [place] [address] 06/29/24 documented as of this encounter
--- OUTSIDE RECORDS SUMMARY | 2024-12-26 13:18 | XMS_ITS | Encounter Summary ---
Author Organization [facility] Address [address] [facility] [place] [address] Care Team Providers Care Recycling Assistant Name Role Phone Slick Villaseñor MD Primary Care Provider [phone] Rachelle Monge LPN Unavailable Encounter Details Date Type Department Care Team (Late st Contact Info) Description 08/29/2024 Abstract [facility] [address] [facility] 110 [place] [address] Slick Villaseñor MD 112 [facility] 110 [place] [address] Social History Tobacco Use Types Packs/Day Years [...] Never 01/04/2023 How often do you attend mandaen or sikhism serv ices? Never 01/04/2023 Do you belong to any clubs o r organizations such as mandaen groups, unions, fraternal or athletic groups, or [...] Answer Date Recorded Patient Health Questionnaire-2 Score 0 08/28/2024 [facility] of Occupat ional Health - Occupational Stress [...] place to sleep or slept in a senior living (including now)? No 01/04/2023 Education Answer Date [...] Office Visit [facility] [place] [facility] [address] [place] [address] Francisco Houser MD [address] [place] [address] 01/30/2025 8:30 AM EDT Office Visit [facility] [address] [facility] 160 [place] [address] Anastacia Da Silva, PURCHASE ORDER CHECKER-WOOD FENCE ERECTOR 112 [facility] 160 [place] [address] 03/20/2025 8:00 AM EST Office Visit [facility] [address] [facility] 310 [place] [address] Gordo Hayden MD 9124 [facility] [address], [place] [id number] documented as of this encounter Visit Diagnoses Not on filedocumented in this encounter Additional Health Concerns Assessment Noted Time PHQ-9 Depression Total Score: 0 08/29/19 12:00 PM EDT documented as of this encounter Care Teams Recycling Assistant Relationship Specialty Start Date End Date Slick Villaseñor MD 112 [facility] 110 [place] [address] PCP - General Family Medicine 08/14/22 Rachelle Monge LPN 112 [facility] 110 [place] [address] 06/29/24 documented as of this encounter
--- OUTSIDE RECORDS SUMMARY | 2024-12-26 13:18 | XMS_ITS | Encounter Summary ---
Author Organization [facility] Address [address] [facility] [place] [address] Care Team Providers Care Renal Dialysis Rn Name Role Phone Slick Villaseñor MD Primary Care Provider [phone] Rachelle Monge LPN Unavailable Encounter Details Date Type Department Care Team (Late st Contact Info) Description 07/25/2024 Abstract [facility] [address] [facility] 110 [place] [address] Slick Villaseñor MD 112 [facility] 110 [place] [address] Social History Tobacco Use Types Packs/Day Years [...] Never 01/04/2023 How often do you attend scientologist or synagogue serv ices? Never 01/04/2023 Do you belong to any clubs o r organizations such as scientologist groups, unions, fraternal or athletic groups, or [...] Date Recorded Patient Health Questionnaire-2 Score 6 06/28/2024 [facility] of Occupat ional Health - Occupational [...] place to sleep or slept in a retirement (including now)? No 01/04/2023 Education Answer Date [...] [facility] [place] [facility] [address] [place] [address] Francisco Houser MD [address] [place] [address] 01/30/2025 8:30 AM EDT Office Visit [facility] [address] [facility] 160 [place] [address] Anastacia Da Silva, OLIVE GRADER-VIDEOGRAPHER 112 [facility] 160 [place] [address] 03/20/2025 8:00 AM EST Office Visit [facility] [place] [facility] [address] [facility] 310 [place] [address] Gordo Hayden MD 0979 [facility] [address], [place] [id number] documented as of this encounter Visit Diagnoses Not on filedocumented in this encounter Additional Health Concerns Assessment Noted Time PHQ-9 Depression Total Score: 17 025 10:03 AM EDT documented as of this encounter Care Teams Renal Dialysis Rn Relationship Specialty Start Date End Date Slick Villaseñor MD 112 [facility] 110 [place] [address] PCP - General Family Medicine 08/14/22 Rachelle Monge LPN 112 [facility] 110 [place] [address] 06/29/24 documented as of this encounter
--- OUTSIDE RECORDS SUMMARY | 2024-12-26 13:18 | XMS_ITS | Encounter Summary ---
Author Organization [facility] Address [address] [place] [address] Care Team Providers Care Training Analyst Name Role Phone Slick Villaseñor MD Primary Care Provider [phone] Anastacia Da Silva MANAGER MARKET RESEARCH-RESTAURANT SHIFT SUPERVISOR Unavailable Belgica Ayers RN Unavailable [phone] Rachelle Monge FLAKER TENDER Unavailable Reason for Visit * Reason Comments Med Refill Encounter Details Date Type Department Care Team (Late st Contact Info) Description 09/14/2023 Refill [facility] [place] [facility] 112 [facility] 160 [place] [address] Anastacia Da Silva, MANAGER MARKET RESEARCH-RESTAURANT SHIFT SUPERVISOR 112 [facility] 160 [place] [address] BRITTANY (generalized anxiety disorder) Social History Tobacco Use Types Packs/Day Years [...] Never 01/04/2023 How often do you attend jain or mormonism serv ices? Never 01/04/2023 Do you belong to any clubs o r organizations such as jain groups, unions, fraternal or athletic groups, or [...] Recorded Patient Health Questionnaire-2 Score 6 09/15/2023 [facility] of Occupat ional Health [...] place to sleep or slept in a m[facility]p (including now)? No 01/04/2023 Sex and Gender [...] things Nearly every day 09/15/2023 2:03 PM KOLET Cindy Stout i, LPN Feeling down, depressed, or hopeless Nearly every day 09/15/2023 2:03 PM KOLET Adrianne Stout LP N Patient Health Questionnaire-2 Score 6 09/15/2023 2:03 PM EDAdrianne Caldwell LPN * Question Answer Date of Assessment Author Trouble falling or staying asleep, or sleeping too much Several days 09/15/2023 2:03 PM EDT Adrianne Stout LP N Feeling tired or having little [...] Stout LPN documented as of this encounter Miscellaneous Notes * Telephone Encounter - Adrianne Stout LPN - 09/14/2023 8:04 AM EDT Patient has appointment today documented in this encounter Plan of Treatment Upcoming Encounters Date Type Department Care Team (Late st Contact Info) Description 01/02/2025 9:10 AM EDT Office Visit [facility] [place] [facility] [address] [place] [address] Francisco Houser MD [address] [place] [address] 01/30/2025 8:30 AM EDT Office Visit [facility] [place] [facility] [address] [place] 160 [place] [address] Anastacia Da Silva, MANAGER MARKET RESEARCH-RESTAURANT SHIFT SUPERVISOR 112 [facility] 160 [place] [address] 03/20/2025 8:00 AM EST Office Visit [facility] [place] [facility] [address] [facility] 310 [place] [address] Gordo Hayden MD 5195 [facility] [address] [id number] documented as of this encounter Visit Diagnoses Diagnosis BRITTANY (generalized anxiety disorder) Generalized anxiety disorder Type 2 diabetes mellitus with diabetic neuropathic arthropathy, with long-term current use of insulin (HCC) documented in this encounter Additional Health Concerns Assessment Noted Time PHQ-9 Depression Total Score: 20 024 11:33 AM EDT documented as of this encounter Care Teams Training Analyst Relationship Specialty Start Date End Date Slick Villaseñor MD 112 [facility] 110 [place] [address] PCP - General Family Medicine 08/14/22 Anastacia Da Silva, MANAGER MARKET RESEARCH-RESTAURANT SHIFT SUPERVISOR 112 [facility] 160 [place] [address] [facility] 12/10/22 Belgica Ayers, HAYDE [address] [place] [address] Clinical Advocate Family Medicine 05/18/24 06/29/24 Rachelle Monge LPN 112 [facility] 110 [place] [address] 06/29/24 documented as of this encounter
--- OUTSIDE RECORDS SUMMARY | 2024-12-26 13:18 | XMS_ITS | Encounter Summary ---
Author Organization [facility] Address [address] [place] [address] Care Team Providers Care Hand Leather Trimmer Name Role Phone Slick Villaseñor MD Primary Care Provider [phone] Rachelle Monge LPN Unavailable Reason for Visit * Reason Comments Med Change Request Encounter Details Date Type Department Care Team (Late st Contact Info) Description 08/30/2024 [facility]ill [facility] 112 [facility] 160 [place] [address] Estefania-Anastacia Mitchell, INFANT CAREGIVER-[facility] 112 [facility] 160 [place] [address] BRITTANY (generalized anxiety disorder) Social History Tobacco [...] Never 01/04/2023 How often do you attend methodist or hindu serv ices? Never 01/04/2023 Do you belong to any clubs o r organizations such as methodist groups, unions, fraternal or athletic groups, or [...] Recorded Patient Health Questionnaire-2 Score 0 08/28/2024 [facility] of Occupat ional Health - Occupational Stress [...] place to sleep or slept in a intermediate (including now)? No 01/04/2023 Education Answer Date [...] [facility] [place] [facility] [address] [place] [address] Francisco Houser MD [address] [place] [address] 01/30/2025 8:30 AM EDT Office Visit [facility] [place] [facility] 112 [facility] 160 [place] [address] Anastacia Da Silva, INFANT CAREGIVER-ROTARY SHEAR WORKER HELPER 112 [facility] 160 [place] [address] 03/20/2025 8:00 AM EST Office Visit [facility] [place] [facility] [address] [facility] 310 [place] [address] Gordo Hayden MD 4042 [facility] [address] [address] documented as of this encounter Visit Diagnoses Diagnosis BRITTANY (generalized anxiety disorder) Generalized anxiety disorder Type 2 diabetes mellitus with diabetic neuropathic arthropathy, with long-term current use of insulin (HCC) documented in this encounter Additional Health Concerns Assessment Noted Time PHQ-9 Depression Total Score: 0 08/29/19 25 12:00 PM EDT documented as of this encounter Care Teams Hand Leather Trimmer Relationship Specialty Start Date End Date Slick Villaseñor MD 112 [facility] 110 [place] [address] PCP - General Family Medicine 08/14/22 Rachelle Monge LPN 112 [facility] 110 [place] [address] 06/29/24 documented as of this encounter
--- OUTSIDE RECORDS SUMMARY | 2024-12-26 13:18 | XMS_ITS | Encounter Summary ---
Author Organization [facility] Address [address] [place] [address] Care Team Providers Care Electron Beam Operator Name Role Phone Slick Villaseñor MD Primary Care Provider [phone] Rachelle Monge LPN Unavailable Reason for Visit * Reason Comments Med Refill Encounter Details Date Type Department Care Team (Late st Contact Info) Description 11/24/2024 Refill [facility] [place] [facility] 112 [facility] 160 [place] [address] Estefania-Anastacia Mitcehll, PHOTO FINISH PHOTOGRAPHER-[facility] 112 [facility] 160 [place] [address] BRITTANY (generalized anxiety disorder) Social History Tobacco [...] Never 01/04/2023 How often do you attend cheondoism or christian serv ices? Never 01/04/2023 Do you belong to any clubs o r organizations such as cheondoism groups, unions, fraternal or athletic groups, or [...] Recorded Patient Health Questionnaire-2 Score 0 08/28/2024 [facility] of Occupat ional Health - Occupational Stress [...] [facility] [place] [facility] [address] [place] [address] Francisco Houser MD [address] [place] [address] 01/30/2025 8:30 AM EDT Office Visit [facility] [place] [facility] 112 [facility] 160 [place] [address] Anastacia Da Silva, PHOTO FINISH PHOTOGRAPHER-EMPLOYER RELATIONS REPRESENTATIVE 112 [facility] 160 [place] [address] 03/20/2025 8:00 AM EST Office Visit [facility] [place] [facility] [address] [facility] 310 [place] [address] Gordo Hayden MD 4091 [facility] [address] [address] documented as of this encounter Visit Diagnoses Diagnosis BRITTANY (generalized anxiety disorder) Generalized anxiety disorder Type 2 diabetes mellitus with diabetic neuropathic arthropathy, with long-term current use of insulin (HCC) documented in this encounter Additional Health Concerns Assessment Noted Time PHQ-9 Depression Total Score: 0 08/29/19 25 12:00 PM EDT documented as of this encounter Care Teams Electron Beam Operator Relationship Specialty Start Date End Date Slick Villaseñor MD 112 [facility] 110 [place] [address] PCP - General Family Medicine 08/14/22 Rachelle Monge LPN 112 [facility] 110 [place] [address] 06/29/24 documented as of this encounter
--- OUTSIDE RECORDS SUMMARY | 2024-12-26 13:18 | XMS_ITS | Encounter Summary ---
Author Organization [facility] Address [address] [place] [address] Care Team Providers Care Night Guard Name Role Phone Slick Randle MD Primary Care Provider [phone] Anastacia Da Silva HELPER METAL HANGING-HEDIS MANAGER Unavailable Belgica Ayers RN Unavailable [phone] Rachelle Monge GYRO COMPASS TESTER Unavailable Encounter Details Date Type Department Care Team (Late st Contact Info) Description 08/30/2022 Clinisync Result Encounter [facility] EXT DEP Slick Randle MD [address] [facility] 110 [place] [address] Social History Tobacco Use Types Packs/Day Years Used Date Smoking Tobacco: Never Assessed Sex and Gender Information Value Date Recorded [...] AM EDT Office Visit [facility] [address] [place] [address] Francisco Houser MD [address] [place] [address] 01/30/2025 8:30 AM EDT Office Visit [facility] 112 [facility] 160 [place] [address] Anastacia Da Silva Julia, HELPER METAL HANGING-HEDIS MANAGER 112 [facility] 160 [place] [address] 03/20/2025 8:00 AM EST Office Visit [facility] [place] [facility] [address] [place] [address] Gordo Hayden MD 5820 [facility] [address] [address] documented as of this encounter Procedures Procedure Name Priority Date/Time Associated Diagnosis Comments ECHOCARDIO M/2D COMPLETE 08/30/2022 7:00 AM EDT documented in this encounter Results * ECHOCARDIO M/2D COMPLETE (08/30/2022 7:00 AM EDT) Anatomical Region Laterality Modality Other 08/30/2022 7:00 AM EDT Narrative 08/30/2022 7:00 AM EDT Patient: STEVEN BAIN Exam Date: 08/30/2022 : 1960 Gender:M Ordering : MRS. KAVYA CALLAHAN DISSOLVER OPERATOR Admission #: [id number] Family : DR SLICK RANDLE M.D. Order #: [id number] CLICK HERE TO VIEW EXAM ECHOCARDIOGRAM REPORT PROCEDURE: CARDIO PULMONARY ECHOCARDIO M/2D COMP INDICATIONS: Syncope and collapse, chronic kidney disease, dialysis, COMPARISON: None. DESCRIPTION: COMPLETE ECHOCARDIOGRAM Real-time transthoracic echocardiography with 2D, M-mode, spectral and color flow Doppler performed. QUALITY: Technically difficult due to patients condition. LEFT VENTRICLE: Normal chamber size. Mild concentric left ventricular hypertrophy. LV EF: Normal left ventricular ejection fraction, (>55%). DIASTOLIC: Normal diastolic function. ATRIAL SEPTUM: Visually appears intact. LEFT ATRIUM: Normal chamber size. RIGHT ATRIUM: Normal chamber size. RIGHT VENTRICLE: Normal chamber size. Normal right ventricular systolic function. TRICUSPID VALVE: Normal mobility and thickness. No stenosis with trivial regurgitation. Unable to assess right-sided pressures due to lack of measurable tricuspid regurgitation. MITRAL VALVE: Normal mobility and thickness. No evidence of mitral valve stenosis. There is no mitral annular calcification. No mitral regurgitation. AORTIC VALVE: Normal trileaflet appearance. No visible sclerosis. Normal leaflet mobility. No evidence of aortic valve stenosis. No aortic regurgitation. AORTIC ROOT: Mildly dilated, measuring 4.0 cm. The ascending aorta is mildly dilated measuring 4.0 cm. PULMONIC VALVE: Normal thickness and mobility. No stenosis. Trivial regurgitation. PERICARDIUM: No evidence of pericardial effusion. IVC: Collapses with inspirations. IVC is normal in size. PLEURA: CONCLUSION: 1. Mild concentric left ventricular hypertrophy with normal ventricular systolic function. LVEF is 55 to 60%. 2. Normal right ventricular size and systolic function. 3. No significant valvular dysfunction. 4. Mildly dilated ascending aorta and aortic root. 5. Unable to assess right-sided pressures due to lack of measurable tricuspid regurgitation. Adult Echocardiography Procedure Report Left Ventricle LVEDD (3.7 - 5.6 cm): 4.55 cm LVESD (2.2 - 4.0 cm): 2.38 cm LVIVS thickness (0.6 - 1.2 cm): 1.11 cm LVPW thickness (0.5 - 1.0 cm): 1.15 cm e': 0.12 m/s E - e': 6.24 LVOT Max Gradient: 3.58 mm[Hg] Peak Velocity (LVOT): 0.95 m/s LVOT Diameter 2.43 cm Left Ventricular Ejection Fraction: 55-60 % Left Atrium LA Volume Index (2D A2C): 76.65 ml, 76.65 ml Left Atrium Systolic Dimension: 3.19 cm Mitral Valve MV E to A Ratio: 0.96 Mitral Valve A-Wave Peak Velocity: 0.80 m/s Mitral Valve E-Wave Peak Velocity: 0.77 m/s Right Ventricle Aorta AO Root Diam: 4.04 cm Ascending Ao Diam: 3.91 cm Aortic Valve AoV Area (Peak Aryan): 3.07 cm2, 3.07 cm2 Peak Velocity(Antegrade Flow): 1.42 m/s Peak Gradient(Antegrade Flow): 8.10 mm[Hg] Tricuspid Valve Peak Velocity: 0.66 m/s Pulmonic Valve Mean Gradient: 3.13 mm[Hg] Mean Velocity: 0.82 m/s Peak Velocity: 1.24 m/s, 1.28 m/s Peak Gradient: 6.16 mm[Hg], 6.56 mm[Hg] Right Atrium Right Atrium Systolic Pressure: 84.68 ml, 84.68 ml Dictated by: Sergey Leonardo M.D. on 08/31/2022 at 18:17 Approved by: Sergey Leonardo M.D. on 08/31/2022 at 18:22 Procedure Note Radiology, Radiologist, MD - 08/31/2022 Patient: STEVEN BAIN Exam Date: 08/30/2022 : 1960 Gender:M Ordering : MRS. KAVYA PARIKHGLENN EDEG Admission #: [id number] Family : DR SLICK RANDLE M.D. Order #: [id number] CLICK HERE TO VIEW EXAM ECHOCARDIOGRAM REPORT PROCEDURE: CARDIO PULMONARY ECHOCARDIO M/2D COMP INDICATIONS: Syncope and collapse, chronic kidney disease, dialysis, COMPARISON: None. DESCRIPTION: COMPLETE ECHOCARDIOGRAM Real-time transthoracic echocardiography with 2D, M-mode, spectral and color flow Dopplerperformed. QUALITY: Technically difficult due to patients condition. LEFT VENTRICLE: Normal chamber size. Mild concentric left ventricular hypertrophy. LV EF: Normal left ventricular ejection fraction, (>55%). DIASTOLIC: Normal diastolic function. ATRIAL SEPTUM: Visually appears intact. LEFT ATRIUM: Normal chamber size. RIGHT ATRIUM: Normal chamber size. RIGHT VENTRICLE: Normal chamber size. Normal right ventricularsystolic function. TRICUSPID VALVE: Normal mobility and thickness. No stenosis withtrivial regurgitation. Unable to assess right-sided pressures due to lack of measurable tricuspid regurgitation. MITRAL VALVE: Normal mobility and thickness. No evidence of mitralvalve stenosis. There is no mitral annular calcification. No mitralregurgitation. AORTIC VALVE: Normal trileaflet appearance. No visible sclerosis.Normal leaflet mobility. No evidence of aortic valve stenosis. No aortic regurgitation. AORTIC ROOT: Mildly dilated, measuring 4.0 cm. The ascending aorta is mildly dilated measuring 4.0 cm. PULMONIC VALVE: Normal thickness and mobility. No stenosis. Trivial regurgitation. PERICARDIUM: No evidence of pericardial effusion. IVC: Collapses with inspirations. IVC is normal in size. PLEURA: CONCLUSION: 1. Mild concentric left ventricular hypertrophy with normal ventricular systolic function. LVEF is 55 to 60%. 2. Normal right ventricular size and systolic function. 3. No significant valvular dysfunction. 4. Mildly dilated ascending aorta and aortic root. 5. Unable to assess right-sided pressures due to lack of measurabletricuspid regurgitation. Adult Echocardiography Procedure Report Left Ventricle LVEDD (3.7 - 5.6 cm): 4.55 cm LVESD (2.2 - 4.0 cm): 2.38 cm LVIVS thickness (0.6 - 1.2 cm): 1.11 cm LVPW thickness (0.5 - 1.0 cm): 1.15 cm e': 0.12 m/s E - e': 6.24 LVOT Max Gradient: 3.58 mm[Hg] Peak Velocity (LVOT): 0.95 m/s LVOT Diameter 2.43 cm Left Ventricular Ejection Fraction: 55-60 % Left Atrium LA Volume Index (2D A2C): 76.65 ml, 76.65 ml Left Atrium Systolic Dimension: 3.19 cm Mitral Valve MV E to A Ratio: 0.96 Mitral Valve A-Wave Peak Velocity: 0.80 m/s Mitral Valve E-Wave Peak Velocity: 0.77 m/s Right Ventricle Aorta AO Root Diam: 4.04 cm Ascending Ao Diam: 3.91 cm Aortic Valve AoV Area (Peak Aryan): 3.07 cm2, 3.07 cm2 Peak Velocity(Antegrade Flow): 1.42 m/s Peak Gradient(Antegrade Flow): 8.10 mm[Hg] Tricuspid Valve Peak Velocity: 0.66 m/s Pulmonic Valve Mean Gradient: 3.13 mm[Hg] Mean Velocity: 0.82 m/s Peak Velocity: 1.24 m/s, 1.28 m/s Peak Gradient: 6.16 mm[Hg], 6.56 mm[Hg] Right Atrium Right Atrium Systolic Pressure: 84.68 ml, 84.68 ml Dictated by: Sergey Leonardo M.D. on 08/31/2022 at 18:17 Approved by: Sergey Leonardo M.D. on 08/31/2022 at 18:22 Slick Randle MD [facility] Final Result documented in this encounter Visit Diagnoses Not on filedocumented in this encounter Care Teams Night Guard Relationship Specialty Start Date End Date Slick Randle MD 112 [facility] 110 [place] [address] PCP - General Family Medicine 08/14/22 Anastacia Da Silva, HELPER METAL HANGING-HEDIS MANAGER 112 [facility] 160 [place] [address] [facility] 12/10/22 Belgica Ayers, HAYDE [address] [place] [address] Clinical Advocate Family Medicine 05/18/24 06/29/24 Rachelle Monge LPN 112 [facility] 110 [place] [address] 06/29/24 documented as of this encounter
--- OUTSIDE RECORDS SUMMARY | 2024-12-26 13:18 | XMS_ITS | Encounter Summary ---
Author Organization [facility] Address [address] [place] [address] Care Team Providers Care Nursery Attendant Name Role Phone Slick Villaseñor MD Primary Care Provider [phone] Rachelle Monge LPN Unavailable Reason for Visit * Reason Comments Med Refill Encounter Details Date Type Department Care Team (Late st Contact Info) Description 11/27/2024 Refill [facility] [place] [facility] 112 [facility] 160 [place] [address] Estefania-Anastacia Mitchell, PRODUCTION SHIFT SUPERVISOR-[facility] 112 [facility] 160 [place] [address] BRITTANY (generalized anxiety disorder) Social History Tobacco [...] Never 01/04/2023 How often do you attend pentecostal or gnosticist serv ices? Never 01/04/2023 Do you belong to any clubs o r organizations such as pentecostal groups, unions, fraternal or athletic groups, or [...] Recorded Patient Health Questionnaire-2 Score 0 08/28/2024 [facility] of Occupat ional Health - Occupational Stress [...] [facility] [place] [facility] [address] [place] [address] Francisco Houser MD [address], [address] [place] [address] 01/30/2025 8:30 AM EDT Office Visit [facility] [place] [facility] 112 [facility] 160 [place] [address] Anastacia Da Silva, PRODUCTION SHIFT SUPERVISOR-SMALL BUSINESS SALES REPRESENTATIVE 112 [facility] 160 [place] [address] 03/20/2025 8:00 AM EST Office Visit [facility] [place] [facility] [address] [facility] 310 [place] [address] Gordo Hayden MD 1256 [facility] [address] [address] documented as of this encounter Visit Diagnoses Diagnosis BRITTANY (generalized anxiety disorder) Generalized anxiety disorder Type 2 diabetes mellitus with diabetic neuropathic arthropathy, with long-term current use of insulin (HCC) documented in this encounter Additional Health Concerns Assessment Noted Time PHQ-9 Depression Total Score: 0 08/29/19 25 12:00 PM EDT documented as of this encounter Care Teams Nursery Attendant Relationship Specialty Start Date End Date Slick Villaseñor MD 112 [facility] 110 [place] [address] PCP - General Family Medicine 08/14/22 Rachelle Monge LPN 112 [facility] 110 [place] [address] 06/29/24 documented as of this encounter
--- OUTSIDE RECORDS SUMMARY | 2024-12-26 13:19 | XMS_ITS | Encounter Summary ---
Author Organization [facility] Address [address] [place] [address] Care Team Providers Care Crankshaft Balancer Name Role Phone Unavailable Primary Care Provider Unavailabl e Source Comments In the event this information is protected by the Federal Confidentiality of Alcohol and Drug AbusePatient Records regulations: The Federal rules restrict any use of the information to criminally investigate or prosecute any alcohol or drug abuse patient.[facility] Encounter Details Date Type Department Care Team (Late st Contact Info) Description 11/05/2024 Patient Msg Medical Records [address] [place] [address] Provider, [facility] Managing Pain at Home After Surgery Social History Tobacco Use Types Packs/Day Years [...] is lower risk 6 06/15/2024 Data from: https://www.neighborhoodatlas.medicine.[facility].edu/. Last address used for calculation [address] [place] [address] 06/15/2024 Sex and Gender Information Value Date Recorded Sex Assigned at Not on file Legal Sex Male 2:15 PM EST Gender Identity Not on file Sexual Orientation Not on file documented as of this encounter Plan of Treatment Upcoming Encounters Date Type Department Care Team (Late st Contact Info) Description 12/27/2024 1:45 PM EDT Office Visit [facility] [address] [place] [address] Cinthya Velazquez MD [address] [place] [address] Diagnostics, [facility] [address] [address] CAT EVAL ref by Dr. Stout 01/09/2025 3:00 PM EDT Office Visit Plastic Surgery [address] [address] Abhi Galicia MD [address]00 [place], [place] [phone] 3 week follow up 02/18/2025 10:00 AM EST Office Visit Urology [address] [address] Van Acosta MD [address] [place] [phone] 2 month follow up add on ok per dr acosta documented as of this encounter Visit Diagnoses Not on filedocumented in this encounter
--- OUTSIDE RECORDS SUMMARY | 2024-12-26 13:19 | XMS_ITS | Encounter Summary ---
Author Organization [facility] Address [address] [place] [address] Care Team Providers Care Scorer Single Name Role Phone Unavailable Primary Care Provider Unavailabl e Source Comments In the event this information is protected by the Federal Confidentiality of Alcohol and Drug AbusePatient Records regulations: The Federal rules restrict any use of the information to criminally investigate or prosecute any alcohol or drug abuse patient.[facility] Encounter Details Date Type Department Care Team (Latest Contact Info) Description 12/17/2024 Travel Social History Tobacco Use Types Packs/Day Years Used Date Smoking Tobacco: Never Passive Smoke Exposure: Past Smokeless Tobacco: Never Alcohol Use Standard Drinks/Week Comments Yes 0 (1 standard drink = 0.6 oz pur e alcohol) [facility] Area Deprivation Index Answer Date Jhon rded National Score (1-100), lower number is lower ri sk 78 06/15/2024 State Score (1-10), lower number is lower risk 6 06/15/2024 Data from: https://www.neighborhoodatlas.medicine.[facility].edu/. Last address used for calculation [facility] [address] 06/15/2024 Sex and Gender Information Value Date Recorded Sex Assigned at Not on file Legal Sex Male 2:15 PM EST Gender Identity Not on file Sexual Orientation Not on file documented as of this encounter Plan of Treatment Upcoming Encounters Date Type Department Care Team ( st Contact Info) Description 12/27/2024 1:45 PM EDT Office Visit [facility] Ophthalmology [address] [place] [address] Cinthya Velazquez MD [address] [facility] [address] Diagnostics, [facility] [address] [address] CAT EVAL ref by Dr. Stout 01/09/2025 3:00 PM EDT Office Visit Plastic Surgery [address] [address] [place] [address] [place] [phone] 3 week follow up 02/18/2025 10:00 AM EST Office Visit Urology [address] [address] Van Acosta MD [address] [place], [place] [phone] 2 month follow up add on ok per dr acosta documented as of this encounter Visit Diagnoses Not on filedocumented in this encounter
--- OUTSIDE RECORDS SUMMARY | 2024-12-26 13:19 | XMS_ITS | Encounter Summary ---
Author Organization [facility] Address [address] [place] [address] Care Team Providers Care Mobile Patrol Officer Name Role Phone Slick Villaseñor MD Primary Care Provider [phone] Anastacia Da Silva FOREIGN CORRESPONDENT-OPERATIONS ASSOCIATE Unavailable Belgica Ayers RN Unavailable Rachelle Monge BUSINESS SERVICES SALES AGENT Unavailable Encounter Details Date Type Department Care Team (Late st Contact Info) Description 09/14/2022 Orders Only [facility] [place] [facility] [address] [facility] 110 [place] [address] Slick Villaseñor MD [address] [facility] 110 [place], [place] [address] Social History Tobacco Use Types Packs/Day Years [...] [facility] [place] [facility] [address] [place] [id number] Francisco Houser MD [address] [place] [address] 01/30/2025 8:30 AM EDT Office Visit [facility] [place] [facility] [address] [facility] 160 [place] [address] Anastacia Da Silva, FOREIGN CORRESPONDENT-OPERATIONS ASSOCIATE [address] [facility] 160 [place] [address] 03/20/2025 8:00 AM EST Office Visit [facility] [place] [facility] [address] [place] [address] Gordo Hayden MD 6918 [facility] [address] [phone] documented as of this encounter Procedures Procedure Name Priority Date/Time Associated Diagnosis Comments ECHOCARDIOGRAM Routine 08/30/2022 9:18 AM EDT documented in this encounter Results * ECHOCARDIOGRAM (08/30/2022 9:18 AM EDT) Anatomical Region Laterality Modality Other Slick Villaseñor MD [facility] Final Result documented in this encounter Visit Diagnoses Not on filedocumented in this encounter Additional Health Concerns Assessment Noted Time PHQ-9 Depression Total Score: 13 023 11:02 AM EDT documented as of this encounter Care Teams Mobile Patrol Officer Relationship Specialty Start Date End Date Slick Villaseñor MD [address] [facility] 110 [place] [address] PCP - General Family Medicine 08/14/22 Anastacia Da Silva, FOREIGN CORRESPONDENT-OPERATIONS ASSOCIATE [address] [facility] 160 [place] [address] PCP - [place] [employer] 12/10/22 Belgica Ayers, RN [address] [place] [address] Clinical Advocate Family Medicine 05/18/24 06/29/24 Rachelle Monge LPN 112 [facility] 110 [place] [address] 06/29/24 documented as of this encounter
--- OUTSIDE RECORDS SUMMARY | 2024-12-26 13:19 | XMS_ITS | Encounter Summary ---
Author Organization [facility] Address [address] [place] [address] Care Team Providers Care Linux Systems Administrator Name Role Phone Slick Villaseñor MD Primary Care Provider [phone] Anastacia Da Silva BRIDAL SERVICE SALES AND MANAGEMENT-INSTRUCTIONAL ASSISTANT Unavailable Belgica Ayers RN Unavailable Rachelle Monge MUSIC THERAPY TEACHER Unavailable Encounter Details Date Type Department Care Team (Late st Contact Info) Description 09/28/2022 Orders Only [facility] [place] [facility] [address] [facility] 110 [place] [address] Slick Villaseñor MD [address] [facility] 110 [place], [place] [id number] Social History Tobacco Use Types Packs/Day Years [...] [facility] [address] [place] [id number] Francisco Houser MD [address] [place] [address] 01/30/2025 8:30 AM EDT Office Visit [facility] [place] [address] [facility] 160 [place] [address] Anastacia Da Silva, BRIDAL SERVICE SALES AND MANAGEMENT-INSTRUCTIONAL ASSISTANT [address] [facility] 160 [place] [address] 03/20/2025 8:00 AM EST Office Visit [facility] [place] [facility] [address] [place] [address] Gordo Hayden MD 7599 [facility] [address] [phone] documented as of this encounter Procedures Procedure Name Priority Date/Time Associated Diagnosis Comments POLYSOMNOGRAPHY Routine 09/28/2022 10:42 AM EDT documented in this encounter Results * Polysomnography (09/28/2022 10:42 AM EDT) Slick Villaseñor MD [facility] ORDERABLES Final Re sult documented in this encounter Visit Diagnoses Not on filedocumented in this encounter Additional Health Concerns Assessment Noted Time PHQ-9 Depression Total Score: 13 09/07/ 023 11:02 AM EDT documented as of this encounter Care Teams Linux Systems Administrator Relationship Specialty Start Date End Date Slick Villaseñor MD [address] [facility] 110 [place] [address] PCP - General Family Medicine 08/14/22 Anastacia Da Silva, BRIDAL SERVICE SALES AND MANAGEMENT-INSTRUCTIONAL ASSISTANT [address] [facility] 160 [place] [address] PCP - [employer] 12/10/22 Belgica Ayers, RN [address] [place] [address] Clinical Advocate Family Medicine 05/18/24 06/29/24 Rachelle Monge LPN 112 [facility] 110 [place] [address] 06/29/24 documented as of this encounter
--- OUTSIDE RECORDS SUMMARY | 2024-12-26 13:19 | XMS_ITS | Encounter Summary ---
Author Organization [facility] Address [address] [place] [address] Care Team Providers Care Community Health Advocate Name Role Phone Slick Villaseñor MD Primary Care Provider [phone] Anastacia Da Silva RECONSTRUCTIVE DENTIST-SHAKE CUTTER Unavailable Belgica Ayers RN Unavailable [phone] Rachelle Monge EXTRACTOR MACHINE OPERATOR Unavailable Encounter Details Date Type Department Care Team (Late st Contact Info) Description 02/08/2023 [facility] [address] [place] [address] A, Unknown Practice [address] [place] [address] Social History Tobacco Use Types Packs/Day Years [...] Never 01/04/2023 How often do you attend baptist or episcopalian serv ices? Never 01/04/2023 Do you belong to any clubs o r organizations such as baptist groups, unions, fraternal or athletic groups, or [...] Recorded Patient Health Questionnaire-2 Score 3 01/26/2023 [facility] of Occupat [...] [facility] [place] [facility] [address] [place] [phone] Francisco Houser MD [address] [place] [address] 01/30/2025 8:30 AM EDT Office Visit [facility] [address] [facility] 160 [place] [address] Anastacia Da Silva, RECONSTRUCTIVE DENTIST-SHAKE CUTTER [address] [facility] 160 [place] [address] 03/20/2025 8:00 AM EST Office Visit [facility] [place] [facility] [address] [place] [address] Gordo Hayden MD 5174 [facility] [address] [place] [address] documented as of this encounter Procedures Procedure Name Priority Date/Time Associated Diagnosis Comments ELECTROCARDIOGRAM REPORT Routine 023 9:08 AM EDT documented in this encounter Results * Electrocardiogram Report (01/23/2023 9:08 AM EDT) us Unknown Practice A IN CLINIC/BEDSIDE ORDERABLES Final Result documented in this encounter Visit Diagnoses Not on filedocumented in this encounter Additional Health Concerns Assessment Noted Time PHQ-9 Depression Total Score: 14 023 2:37 PM EDT documented as of this encounter Care Teams Community Health Advocate Relationship Specialty Start Date End Date Slick Villaseñor MD 112 [facility] 110 [place] [address] PCP - General Family Medicine 08/14/22 Anastacia Da Silva, RECONSTRUCTIVE DENTIST-SHAKE CUTTER 112 [facility] 160 [place] [address] [facility] 12/10/22 Belgica Ayers, HAYDE [address] [place] [address] Clinical Advocate Family Medicine 05/18/24 06/29/24 Rachelle Monge LPN 112 [facility] 110 [place] [address] 06/29/24 documented as of this encounter
--- OUTSIDE RECORDS SUMMARY | 2024-12-26 13:19 | XMS_ITS | Encounter Summary ---
Author Organization [facility] Address [address] [place] [address] Care Team Providers Care Snout Puller Name Role Phone Slick Villaseñor MD Primary Care Provider [phone] Anastacia Da Silva ASSISTANT-POLLUTION CONTROL CHEMIST Unavailable Belgica Ayers RN Unavailable [phone] Rachelle Monge ANIMAL ATTENDANTS AND TRAINERS Unavailable Encounter Details Date Type Department Care Team (Late st Contact Info) Description 11/03/2023 Abstract [facility] [place] [facility] 112 [facility] 110 [place] [address] Slick Villaseñor MD 112 [facility] 110 [place], [place] [id number] Social History Tobacco Use Types Packs/Day Years [...] Never 01/04/2023 How often do you attend gnosticist or advent serv ices? Never 01/04/2023 Do you belong to any clubs o r organizations such as gnosticist groups, unions, fraternal or athletic groups, or [...] Date Recorded Patient Health Questionnaire-2 Score 6 11/03/2023 [facility] of Occupat ional Health [...] in a jail (including now)? No 01/04/2023 Sex and Gender [...] pleasure in doing things Nearly every day 11/03/2023 1:42 PM KOLET Cindy Stout i, LPN Feeling down, depressed, or hopeless Nearly every day 11/03/2023 1:42 PM KOLET Adrianne Stout LP N Patient Health Questionnaire-2 Score 6 11/03/2023 1:42 PM Adrianne Talbert LPN * Question Answer Date of Assessment Author Trouble falling or staying asleep, or sleeping too much Nearly every day 11/03/2023 1:42 PM KOLET Adrianne Stout LP N Feeling tired or having little energy Nearly every day 11/03/2023 1:42 PM EDT Adrianne Stout LP N Poor appetite or overeating Not at all 11/03/2023 1:42 PM EDT Adrianne Stout LP N Feeling bad about yourself - or that you are a failure or have let yourself or your family down Not at all 11/03/2023 1:42 PM EDT Adrianne Stout LP N Trouble concentrating on things, such as reading the newspaper or watching television Several days 11/03/2023 1:42 PM EDT Adrianne Stout LP N Moving or speaking so slowly that other people could have noticed? Or the opposite - being so fidgety or restless that you have been moving around a lot more than usual. Several days 11/03/2023 1:42 PM EDT Adrianne Stout LP N Thoughts that you would be better off or hurting yourself in some way Not at all 11/03/2023 1:42 PM EDT Adrianne Stout L PN Patient Health Questionnaire-9 Score 14 11/03/2023 1:42 PM EDT Adrianne Stout LPN documented as of this encounter Plan of Treatment Upcoming Encounters Date Type Department Care Team (Late st Contact Info) Description 01/02/2025 9:10 AM EDT Office Visit [facility] [address] [place] [address] Francisco Houser MD [address] [place] [address] 01/30/2025 8:30 AM EDT Office Visit [facility] [address] [facility] [address] [place] [address] Anastacia Da Silva APRN-POLLUTION CONTROL CHEMIST [address] [facility] [address] [place] [id number] 03/20/2025 8:00 AM EST Office Visit [facility] [address] [place] [address] Gordo Hayden MD [facility] [address] [address] documented as of this encounter Visit Diagnoses Not on filedocumented in this encounter Additional Health Concerns Assessment Noted Time PHQ-9 Depression Total Score: 14 11/02/ 024 1:42 PM EDT documented as of this encounter Care Teams Snout Puller Relationship Specialty Start Date End Date Slick Villaseñor MD 112 [facility] 110 [place] [address] PCP - General Family Medicine 08/14/22 Anastacia Da Silva APRN-POLLUTION CONTROL CHEMIST 112 [facility] 160 [place] [address] [facility] 12/10/22 Belgica Ayers, RN [address] [place] [address] Clinical Advocate Family Medicine 05/18/24 06/29/24 Rachelle Monge LPN 112 [facility] 110 [place] [address] 06/29/24 documented as of this encounter
--- OUTSIDE RECORDS SUMMARY | 2024-12-26 13:19 | XMS_ITS | Encounter Summary ---
Author Organization [facility] Address [address] [place] [address] Care Team Providers Care Counter Roller Name Role Phone Slick Randle MD Primary Care Provider [phone] Anastacia Da Silva FLOUR INSPECTOR-PERINATAL DIRECTOR Unavailable Belgica Ayers RN Unavailable [phone] Rachelle Monge [address]IVEWAY ATTENDANT Unavailable Encounter Details Date Type Department Care Team (Late st Contact Info) Description 04/13/2024 Clinisync Result Encounter [facility] External Department Unsolicited [...] Never 01/04/2023 How often do you attend druze or restoration serv ices? Never 01/04/2023 Do you belong to any clubs o r organizations such as druze groups, unions, fraternal or athletic groups, or [...] Date Recorded Patient Health Questionnaire-2 Score 3 03/29/2024 [facility] of Occupat ional Health - Occupational [...] place to sleep or slept in a snf (including now)? No 01/04/2023 Education Answer Date [...] [facility] [address] [place] [address] Francisco Houser MD [address], [address] [place] [address] 01/30/2025 8:30 AM EDT Office Visit [facility] [address] [place] 160 [place] [address] Anastacia Da Silva, FLOUR INSPECTOR-PERINATAL DIRECTOR [address] [facility] 160 [place] [address] 03/20/2025 8:00 AM EST Office Visit [facility] [place] [facility] [address] [facility] 310 [place] [address] Gordo Hayden MD 4640 [facility] [address] [place], [place] [address] documented as of this encounter Procedures Procedure Name Priority Date/Time Associated Diagnosis Comments XR ABDOMEN 1V 04/13/2024 7:48 AM EST documented in this encounter Results * XR ABDOMEN 1V (04/13/2024 7:48 AM EST) Anatomical Region Laterality Modality Other 04/13/2024 7:48 AM EST Narrative 04/13/2024 7:51 AM EST The [address] [address] XRay Report Signed Patient: STEVEN BAIN MR#: [id number] : 1960 Acct:[id number] Age/Sex: 64 / M ADM Date: 04/12/24 Loc: RAD Attending Dr: Sun Rocha M.D. Ordering Physician: Sun Rocha M.D. Date of Service: 04/12/24 Procedure(s): XR abdomen 1V Accession Number(s): [id number] cc: SLICK RANDLE Kathy M.D. The [address] [address] Patient Name: STEVEN BAIN MRN: [id number] date: 1960 Sex: M Assigned Patient Location: RAD Current Patient Location: Accession/Order Number: [id number] Exam Date: 04/12/2024 15:00 Report Date: 04/13/2024 07:48 At the request of: SUN ROCHA Procedure: XR abdomen 1V EXAMINATION: XR abdomen 1V HISTORY: Kidney Stone COMPARISON: No relevant comparison available. FINDINGS: KIDNEY/URETER - RIGHT: 1.3 cm right nephrolith KIDNEY/URETER - LEFT: 2.2 cm left nephrolith PELVIS: No visible ureteral calcifications. Any visible calcifications favor phleboliths. BOWEL: No abnormal dilation or deviation. BONES: Mild degenerative spondylosis OTHER: Negative. No abnormal gaseous collections. XR/XR abdomen 1V IMPRESSION: Bilateral nephrolithiasis Electronically authenticated by: MIRELA OLIVAS Date: 04/13/2024 07:48 Dictated By: Mirela Olivas M.D. Signed By: 04/13/24 0751 DD/ 0748 TD/TT: Dredge Runner: Procedure Note Radiology, Radiologist, - 04/13/2024 [place] [address] XRay Report Signed Patient: STEVEN BAIN RMR#: [id number] : 1960cct:[id number] Age/Sex: 64 / MADM Date: 04/12/24 Loc: RAD Attending Dr: Sun Rocha M.D. Ordering Physician: Sun Rocha M.D. Date of Service: 04/12/24 Procedure(s): XR abdomen 1V Accession Number(s): [id number] cc: SLICK RANDLE ; Sun Rocha M.D. The [place] [id number] Patient Name: STEVEN BAIN MRN: [id number] date: 1960 Sex: M Assigned Patient Location: [facility] Current Patient Location: Accession/Order Number: [id number] Exam Date: 04/12/2024 15:00 Report Date: 04/13/2024 07:48 At the request of: SUN ROCHA Procedure: XR abdomen 1V EXAMINATION: XR abdomen 1V HISTORY: Kidney Stone COMPARISON: No relevant comparison available. FINDINGS: KIDNEY/URETER - RIGHT: 1.3 cm right nephrolith KIDNEY/URETER - LEFT: 2.2 cm left nephrolith PELVIS: No visible ureteral calcifications. Any visible calcificationsfavor phleboliths. BOWEL: No abnormal dilation or deviation. BONES: Mild degenerative spondylosis OTHER: Negative. No abnormal gaseous collections. XR/XR abdomen 1V IMPRESSION: Bilateral nephrolithiasis Electronically authenticated by: MIRELA OLIVAS Date: 04/13/2024 07:48 Dictated By: Mirela Olivas M.D. Signed By:04/13/24 0751 DD/ 0748 TD/TT: Dredge Runner: us Generic External Data Provider [facility] Final Result documented in this encounter Visit Diagnoses Not on filedocumented in this encounter Additional Health Concerns Assessment Noted Time PHQ-9 Depression Total Score: 11 024 9:32 AM EST documented as of this encounter Care Teams Counter Roller Relationship Specialty Start Date End Date Slick Randle MD 112 [facility] 110 [place] [address] PCP - General Family Medicine 08/14/22 Anastacia Da Silva, FLOUR INSPECTOR-PERINATAL DIRECTOR 112 [facility] 160 [place] [address] [facility] 12/10/22 Belgica Ayers, RN [address] [place] [address] Clinical Advocate Family Medicine 05/18/24 06/29/24 Rachelle Monge LPN [address] [facility] 110 [place] [address] 06/29/24 documented as of this encounter
--- OUTSIDE RECORDS SUMMARY | 2024-12-26 13:19 | XMS_ITS | Encounter Summary ---
Author Organization [facility] Address [address] [place] [address] Care Team Providers Care Ordnance Corps Officer Name Role Phone Slick Villaseñor MD Primary Care Provider [phone] Anastacia Da Silva QUALITY CONTROL MICROBIOLOGIST-GLUE SPREADER Unavailable Blegica Ayers RN Unavailable [phone] Rachelle Monge CATH LAB RADIOLOGICAL TECHNOLOGIST Unavailable Encounter Details Date Type Department Care Team (Late st Contact Info) Description 02/01/2023 Orders Only [facility] [address] [place] [address] A, Unknown Practice [address] [place] [address] Social History Tobacco Use Types [...] How often do you attend cheondoism or sikhism serv ices? Never 01/04/2023 Do [...] Recorded Patient Health Questionnaire-2 Score 3 01/26/2023 [facility] of Occupat ional Health - Occupational [...] [facility] [place] [facility] [address] [place] [address] Francisco Houser MD [address], [address] [place] [address] 01/30/2025 8:30 AM EDT Office Visit [facility] [address] [facility] 160 [place] [address] Anastacia Da Silva, QUALITY CONTROL MICROBIOLOGIST-GLUE SPREADER [address] [facility] 160 [place] [address] 03/20/2025 8:00 AM EST Office Visit [facility] [place] [facility] [address] [place] [address] Gordo Hayden MD [address] [facility] [address] [place] [address] [place] [address] documented as of this encounter Procedures Procedure Name Priority Date/Time Associated Diagnosis Comments XR CHEST 1 VIEW Routine 01/23/2023 4:10 PM EDT SCANNED LABS Routine 01/23/2023 4:09 PM EDT documented in this encounter Results * XR chest 1 view (01/23/2023 4:10 PM EDT) Anatomical Region Laterality Modality Chest Radiographic Wilda ging us Unknown Practice A IMG XR PROCEDURES Final Resul t * SCANNED LABS (01/23/2023 4:09 PM EDT) us Unknown Practice A LAB CHG PERFORMABLES Final Re sult documented in this encounter Visit Diagnoses Not on filedocumented in this encounter Additional Health Concerns Assessment Noted Time PHQ-9 Depression Total Score: 14 023 2:37 PM EDT documented as of this encounter Care Teams Ordnance Corps Officer Relationship Specialty Start Date End Date Slick Villaseñor MD [address] [facility] [address] [place] [address] PCP - General Family Medicine 08/14/22 Anastacia Da Silva, QUALITY CONTROL MICROBIOLOGIST-GLUE SPREADER [address] [facility] [address] [place] [address] PCP - [place] [employer] 12/10/22 Belgica Ayers, RN [address] [place] [address] Clinical Advocate Family Medicine 05/18/24 06/29/24 Rachelle Monge LPN [address] [address] 06/29/24 documented as of this encounter
--- OUTSIDE RECORDS SUMMARY | 2024-12-26 13:19 | XMS_ITS | Encounter Summary ---
Author Organization [facility] Address [address] [place] [address] Care Team Providers Care Wood Room Supervisor Name Role Phone Slick Villaseñor MD Primary Care Provider [phone] Anastacia Da Silva SUPERVISOR AIRCRAFT MAINTENANCE-ADJUNCT TRAINER Unavailable Belgica Ayers RN Unavailable [phone] Rachelle Monge WORKFORCE DEVELOPMENT SPECIALIST Unavailable Encounter Details Date Type Department Care Team (Late st Contact Info) Description 04/05/2024 Abstract [facility] [place] [facility] 112 [facility] 110 [place] [address] Slick Villaseñor MD 112 [facility] 110 [place], [place] [address] Social History Tobacco Use Types Packs/Day Years [...] Never 01/04/2023 How often do you attend mormon or baptist serv ices? Never 01/04/2023 Do you belong to any clubs o r organizations such as mormon groups, unions, fraternal or athletic groups, or [...] Recorded Patient Health Questionnaire-2 Score 3 03/29/2024 [facility] [place] of Occupat ional Health - Occupational Stress [...] place to sleep or slept in a group home (including now)? No 01/04/2023 Education Answer Date [...] [place] [facility] [address] [place] [address] Francisco Houser MD [address], [address] [place] [address] 01/30/2025 8:30 AM EDT Office Visit [facility] [place] [facility] [address] [facility] [address] [place] [address] Anastacia Da Silva, [facility]-ADJUNCT TRAINER [address] [facility] 160 [place] [address] 03/20/2025 8:00 AM EST Office Visit [facility] [place] [facility] [address] [facility] 310 [place] [address] Gordo Hayden MD 0373 [facility] [address] [address] documented as of this encounter Visit Diagnoses Not on filedocumented in this encounter Additional Health Concerns Assessment Noted Time PHQ-9 Depression Total Score: 11 024 9:32 AM EST documented as of this encounter Care Teams Wood Room Supervisor Relationship Specialty Start Date End Date Slick Villaseñor MD [address] [facility] [address] [place] [address] PCP - General Family Medicine 08/14/22 Anastacia Da Silva, SUPERVISOR AIRCRAFT MAINTENANCE-[facility] [address] [facility] 160 [place] [address] PCP - [place] [facility] 12/10/22 Belgica Ayers, RN [address] [place] [address] Clinical Advocate Family Medicine 05/18/24 06/29/24 Rachelle Monge LPN [address] [facility] 110 [place] [address] 06/29/24 documented as of this encounter
--- OUTSIDE RECORDS SUMMARY | 2024-12-26 13:19 | XMS_ITS | Encounter Summary ---
Author Organization [facility] Address [address] [place] [address] Care Team Providers Care Mini Baccarat Dealer Name Role Phone Slick Villaseñor MD Primary Care Provider [phone] Anastacia Da Silva IN FLIGHT REFUELING SYSTEM REPAIRER-SPA THERAPIST Unavailable Belgica Ayers RN Unavailable [phone] Rachelle Monge SEWER LINE PHOTO INSPECTOR Unavailable Encounter Details Date Type Department Care Team (Late st Contact Info) Description 05/03/2024 Abstract [facility] [place] [facility] 112 [facility] 110 [place] [address] Slick Villaseñor MD 112 [facility] 110 [place], [place] [address] Social History Tobacco Use Types Packs/Day Years [...] Never 01/04/2023 How often do you attend holiness or judaism serv ices? Never 01/04/2023 Do you belong to any clubs o r organizations such as holiness groups, unions, fraternal or athletic groups, or [...] Recorded Patient Health Questionnaire-2 Score 3 03/29/2024 [facility] [place] of Occupat ional Health - Occupational Stress [...] [place] [facility] [address] [place] [address] Francisco Houser MD [address], [address] [place] [address] 01/30/2025 8:30 AM EDT Office Visit [facility] [place] [facility] [address] [facility] [address] [place] [address] Anastacia Da Silva, [facility]-SPA THERAPIST [address] [facility] [address] [place] [address] 03/20/2025 8:00 AM EST Office Visit [facility] [place] [facility] [address] [facility] 310 [place] [address] Gordo Hayden MD 1130 [facility] [address] [address] documented as of this encounter Visit Diagnoses Not on filedocumented in this encounter Additional Health Concerns Assessment Noted Time PHQ-9 Depression Total Score: 11 024 9:32 AM EST documented as of this encounter Care Teams Mini Baccarat Dealer Relationship Specialty Start Date End Date Slick Villaseñor MD [address] [facility] [address] [place] [address] PCP - General Family Medicine 08/14/22 Anastacia Da Silva, IN FLIGHT REFUELING SYSTEM REPAIRER-[facility] [address] [facility] 160 [place] [address] PCP - [place] 12/10/22 Belgica Ayers, RN [address] [place] [address] Clinical Advocate Family Medicine 05/18/24 06/29/24 Rachelle Monge LPN [address] [facility] [address] [place] [address] 06/29/24 documented as of this encounter
--- OUTSIDE RECORDS SUMMARY | 2024-12-26 13:19 | XMS_ITS | Encounter Summary ---
Author Organization [facility] Address [address] [place] [address] Care Team Providers Care Regional Engineer Name Role Phone Slick Villaseñor MD Primary Care Provider [phone] Anastacia Da Silva WIRE HANGER-HOOK AND EYE ATTACHER Unavailable Belgica Ayers RN Unavailable [phone] Rachelle Monge ALTERATION TAILOR Unavailable Encounter Details Date Type Department Care Team (Late st Contact Info) Description 02/08/2023 Abstract [facility] [place] [facility] 112 [facility] 110 [place] [address] Slick Villaseñor MD 112 [facility] 110 [place], [place] [address] Social History Tobacco Use Types Packs/Day Years [...] Never 01/04/2023 How often do you attend congregation or quaker serv ices? Never 01/04/2023 Do you belong to any clubs o r organizations such as congregation groups, unions, fraternal or athletic groups, or [...] Recorded Patient Health Questionnaire-2 Score 3 01/26/2023 [facility] of Occupat ional Health - [...] place to sleep or slept in a detention (including now)? No 01/04/2023 Sex and Gender [...] [facility] [address] [place] [address] Francisco Houser MD [address], [address] [place] [address] 01/30/2025 8:30 AM EDT Office Visit [facility] [address] [facility] 160 [place] [address] Anastacia Da Silva, WIRE HANGER-HOOK AND EYE ATTACHER 112 [facility] 160 [place], [place] [address] 03/20/2025 8:00 AM EST Office Visit [facility] [place] [facility] [address] [facility] 310 [place] [address] Gordo Hayden MD 0754 [facility] [address] [address] documented as of this encounter Visit Diagnoses Not on filedocumented in this encounter Additional Health Concerns Assessment Noted Time PHQ-9 Depression Total Score: 14 023 2:37 PM EDT documented as of this encounter Care Teams Regional Engineer Relationship Specialty Start Date End Date Slick Villaseñor MD 112 [facility] 110 [place] [address] PCP - General Family Medicine 08/14/22 Anastacia Da Silva, WIRE HANGER-HOOK AND EYE ATTACHER 112 [place] 160 [place] [address] PCP - [place] [employer] 12/10/22 Belgica Ayers, HAYDE [address] [place] [address] Clinical Advocate Family Medicine 05/18/24 06/29/24 Rachelle Monge LPN 112 [facility] 110 [place] [address] 06/29/24 documented as of this encounter
--- OUTSIDE RECORDS SUMMARY | 2024-12-26 13:19 | XMS_ITS | Encounter Summary ---
Author Organization [facility] Address [address] [place] [address] Care Team Providers Care Collection Systems Technician Name Role Phone Slick Villaseñor MD Primary Care Provider [phone] Anastacia Da Silva INSTALLER APPRENTICE-ANGLE ROLL OPERATOR Unavailable Belgica Ayers RN Unavailable [phone] Rachelle Monge PROSTHETIC ASSISTANT Unavailable Encounter Details Date Type Department Care Team (Late st Contact Info) Description 05/01/2024 Abstract [facility] [place] [facility] 112 [facility] 110 [place] [address] Slick Villaseñor MD 112 [facility] 110 [place], [place] [address] Social History Tobacco Use Types Packs/Day Years [...] Never 01/04/2023 How often do you attend congregational or orthodoxy serv ices? Never 01/04/2023 Do you belong to any clubs o r organizations such as congregational groups, unions, fraternal or athletic groups, or [...] Recorded Patient Health Questionnaire-2 Score 3 03/29/2024 [facility] [place] of Occupat ional Health - Occupational Stress [...] to sleep or slept in a senior care (including now)? No 01/04/2023 Education Answer Date [...] [place] [facility] [address] [place] [address] Francisco Houser MD [address], [address] [place] [address] 01/30/2025 8:30 AM EDT Office Visit [facility] [place] [facility] [address] [facility] [address] [place] [address] Anastacia Da Silva, [facility]-ANGLE ROLL OPERATOR [address] [facility] 160 [place] [address] 03/20/2025 8:00 AM EST Office Visit [facility] [place] [facility] [address] [facility] 310 [place] [address] Gordo Hayden MD 7453 [facility] [address] [address] documented as of this encounter Visit Diagnoses Not on filedocumented in this encounter Additional Health Concerns Assessment Noted Time PHQ-9 Depression Total Score: 11 024 9:32 AM EST documented as of this encounter Care Teams Collection Systems Technician Relationship Specialty Start Date End Date Slick Villaseñor MD [address] [facility] [address] [place] [address] PCP - General Family Medicine 08/14/22 Anastacia Da Silva, INSTALLER APPRENTICE-[facility] [address] [facility] 160 [place] [address] PCP - [place] [facility] 12/10/22 Belgica Ayers, RN [address] [place] [address] Clinical Advocate Family Medicine 05/18/24 06/29/24 Rachelle Monge LPN [address] [facility] 110 [place] [address] 06/29/24 documented as of this encounter
--- OUTSIDE RECORDS SUMMARY | 2024-12-26 13:19 | XMS_ITS | Encounter Summary ---
Author Organization [facility] Address [address] [place] [address] Care Team Providers Care Sow Farm Barn Technician Name Role Phone Slick Villaseñor MD Primary Care Provider [phone] Anastacia Da Silva CHOIR LEADER-DOBBY LOOM CHAIN PEGGER Unavailable Belgica Ayers RN Unavailable [phone] Rachelle Monge RECORDS MANAGEMENT TECHNICIAN Unavailable Encounter Details Date Type Department Care Team (Late st Contact Info) Description 05/03/2024 [facility] [address] [place] [address] Unallocated, Noms Provider, [address] [place], [place] [id number] Social History Tobacco Use Types Packs/Day Years [...] Never 01/04/2023 How often do you attend hoahaoism or mu-ism serv ices? Never 01/04/2023 Do you belong to any clubs o r organizations such as hoahaoism groups, unions, fraternal or athletic groups, or [...] Recorded Patient Health Questionnaire-2 Score 3 03/29/2024 [facility] [place] [facility] - Occupational Stress [...] EDT Office Visit [facility] [place] [facility] [address] [place] [address] Francisco Houser MD [address] [place] [address] 01/30/2025 8:30 AM EDT [facility] [address] [facility] [address] [place] [id number] Anastacia Da Silva, CHOIR LEADER-DOBBY LOOM CHAIN PEGGER 112 [facility] [address] [place] [address] 03/20/2025 8:00 AM EST [facility] [address] [place] [address] Gordo Hayden MD [address] [facility] [address] [address] documented as of this encounter Procedures Procedure Name Priority Date/Time Associated Diagnosis Comments HEMATOLOGY SPE.REQ. Routine 05/03/2024 1 :37 PM EST URINALYSIS, COMPLETE Routine 05/03/2024 1:37 PM EST ACTIVATED CLOTTING TIME Routine 05/03/19 25 1:37 PM EST COMPREHENSIVE METABOLIC PANEL Routine 05/03/2024 1:37 PM EST documented in this encounter Results * Comprehensive metabolic panel (05/03/2024 1:37 PM EST) Blood Venous blood specimen / Unknown us [facility] Provider Unallocated MD LAB BLOOD ORDERABLE S Final Result * Urinalysis with microscopic (05/03/2024 1:37 PM EST) Urine Urine specimen obtained by clean catch procedure / Unknown us [facility] Provider Unallocated MD LAB URINE ORDERABLE S Final Result * Activated clotting time (05/03/2024 1:37 PM EST) Blood Venous blood specimen / Unknown us [facility] Provider Unallocated LAB BLOOD ORDERABLE S Final Result * HEMATOLOGY SPE.REQ. (05/03/2024 1:37 PM EST) us [facility] Provider Unallocated MD LAB BLOOD ORDERABLE S Final Result documented in this encounter Visit Diagnoses Not on filedocumented in this encounter Additional Health Concerns Assessment Noted Time PHQ-9 Depression Total Score: 11 024 9:32 AM EST documented as of this encounter Care Teams Sow Farm Barn Technician Relationship Specialty Start Date End Date Slick Villaseñor MD [address] [facility] [address] [place] [address] PCP - General Family Medicine 08/14/22 Anastacia Da Silva APRN-DOBBY LOOM CHAIN PEGGER [address] [facility] [address] [place] [address] [facility] 12[facility]10/22 Belgica Ayers, RN [address] [place] [address] Clinical Advocate Family Medicine 05/18/24 06/29/24 Rachelle Monge LPN [address] [facility] [address] [place] [address] 06/29/24 documented as of this encounter
--- OUTSIDE RECORDS SUMMARY | 2024-12-26 13:19 | XMS_ITS | Clinical Summary ---
Author Organization [facility] Address [address] [place] [id number] Care Team Providers Care Frame Runner Name Role Phone Unavailable Primary Care Provider Unavailabl e Allergies Active Allergy Reactions Criticality Noted Date Comments Mirtazapine Mental Status Change Low 10/16/2024 Medications allopurinol (ZYLOPRIM) 100 mg tablet Take 100 mg by mouth once daily. Active folic acid 1 mg tablet Take 1 mg by mouth once daily. Active furosemide (LASIX) 40 mg tablet Take 40 mg by mouth once daily. Active omeprazole (PRILOSEC) 40 mg capsule Take 40 mg by mouth once daily. Active midodrine (PROAMATINE) 2.5 mg tablet Take 2.5 mg by mouth once daily. Active thiamine (VITAMIN B-1) 100 mg tablet Take 100 mg by mouth once daily. Active potassium chloride ER (KLOR-CON) 20 mEq tablet Take 20 mEq by mouth once daily. Active QUEtiapine (SEROQUEL) 25 mg tablet Take 25 mg by mouth daily at bedtime. Active QUEtiapine (SEROQUEL) 200 mg tablet Take 200 mg by mouth daily at bedtime. Active ferrous sulfate (IRON) 325 mg (65 mg iron) tablet Take 325 mg by mouth once daily. Active simethicone/so d bicarb/tta (SODIUM BICARB-TARTARI C ACID ORAL) Take 1,300 mg by mouth once daily. Active atorvastatin (LIPITOR) 20 mg tablet Take 20 mg by mouth once daily. Active magnesium oxide 400 mg magnesium tab Take 400 mg by mouth once daily. Active valbenazine (INGREZZA) 60 mg capsule Take 60 mg by mouth once daily. Active insulin regular, human (HUMULIN R U-500, CONC, INSULIN SUBCUTANEOUS) Inject subcutaneously. Sliding scale 30 to 50 units Active dulaglutide (TRULICITY SUBCUTANEOUS) Inject subcutaneously one time a week. Mondays Active PARoxetine (PAXIL) 20 mg tablet Take 20 mg by mouth. 05/30/19 25 Active Amoxicillin 500 mg tablet Take 500 mg by mouth two times a day. Active docusate sodium (COLACE) 100 mg capsule Take 1 capsule by mouth two times a day. 20 capsule 11/09/19 25 Active hydrOXYzine pamoate (VISTARIL) 50 mg capsule Take 50 mg by mouth. 07/07/19 24 025 clobetasol (TEMOVATE) 0.05 % ointment Apply to affected area two times a day for 14 days. Apply using urethral dilator as directed. 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 On Prilosec. Type 2 diabetes mellitus wit h kidney complication, with long-term current use of insulin 10/23/2024 Assessment & Plan (10/23/2024 12:04 PM EDT): [facility] Humulin R. FBS 140s HgA1C 7.0 on 08/09/2024. Morbid obesity 10/23/2024 Assessment & Plan (10/23/2024 12:03 PM EDT): Body mass index is 40.4 kg/m . On Trulicity, advised patient to stop 7 days prior to surgery. SHADE (obstructive sleep apnea) 10/23/2024 Assessment & Plan (10/23/2024 12:03 PM EDT): Compliant with CPAP. Myocardial bridge 10/23/2024 Assessment & Plan (10/23/2024 12:05 PM EDT): Cardiac cath with normal coronary arteries with mid LAD myocardial bridging in 2017. Follows with cardiology, last visit 02/29/2024. Orthostatic hypotension 10/23/2024 Assessment & Plan (10/23/2024 12:06 PM EDT): On midodrine. Denies syncope. BP 124/82 in office today. Follows with cardiology, last visit 02/29/2024. Denies new or worsening symptoms. CKD (chronic kidney disease) stage 4, GFR 15-29 ml/min 10/23/2024 Assessment & Plan (10/23/2024 12:09 PM EDT): H/o DAISY requiring dialysis temporarily. Now with CKD stage 4 per patient. Follows with nephrology. BMP pending. Anxiety 10/23/2024 Assessment & Plan (10/23/2024 12:10 PM EDT): Severe anxiety, on Paxil, hydroxyzine, Seroquel. Tardive dyskinesia 10/23/2024 Assessment & Plan (10/23/2024 12:11 PM EDT): On Ingrezza. Follows with neurology. Ascending aorta dilatation 10/23/2024 Assessment & Plan (10/23/2024 12:54 PM EDT): Mildly dilated ascending aorta and aortic root 4.0 cm on 08/30/2022. Encounters Date Type Department Care Team Description 12/17/2024 11:15 AM EDT Office Visit Urology [address] [address] Van Acosta MD Acquired buried penis (Primary Dx) 12/17/2024 Travel 11/30/2024 8:30 AM EDT Office Visit Plastic Surgery [address] [address] Abhi Galicia MD Postoperative visit (Primary Dx) 11/20/2024 9:00 AM EDT Office Visit Urology [address] [address] Van Acosta MD Other stricture of urethral meatus in male (Primary Dx); Acquired buried penis 11/19/2024 Telephone Urology [address] [address] Griselda Long, RN Post Op 11/19/2024 Telephone Plastic Surgery [address] [place] [address] Abhi Galicia MD 11/18/2024 Telephone Plastic Surgery [address] [address] Mary Kate Rosario MD 11/18/2024 Nurse Triage NURSE JEWEL HOLE CORNERER [address] [place] [phone] Dave Kwon RN Patient Update 11/15/2024 Telephone Urology [address] [place] [phone] Van Acosta MD Results (Would like to have the notes from his last visit () sent via fax, brice Traore) 11/14/2024 10:00 AM EDT Office Visit Plastic Surgery [address] [address] Abhi Galicia MD Postoperative visit (Primary Dx) 11/14/2024 8:20 AM EDT Office Visit Urology [address] [place] [address] Van Acosta MD Acquired buried penis (Primary Dx) 11/14/2024 Travel 11/06/2024 7:30 AM EDT - 11/06/2024 12:19 PM EDT Surgery Admitting [address] [place] [address] Van Acosta MD PARTIAL SCROTECTOMY 11/06/2024 7:24 AM EDT Anesthesia Event Admitting [address] [place] [address] Mauricio Hennessy MD 11/06/2024 5:26 AM EDT - 11/08/2024 4:46 PM EDT Hospital Encounter HOSP MAIN G090 [address] [place] [address] Van Acosta MD Acquired buried penis [N48.83] Discharge Disposition: Home 11/06/2024 Travel 11/05/2024 Patient Msg Medical Records [address] [place] [address] Provider, [facility] Managing Pain at Home After Surgery 10/30/2024 Telephone Urology [address] [address] Griselda Long RN 10/23/2024 1:10 PM EDT Procedure Cardiology [address] [address] 10/23/2024 10:50 AM EDT PAT Pre Anesthesia [address] [phone] 3, Pacc Main Gastroesophageal reflux disease, unspecified whether esophagitis present (Primary Dx); Type 2 diabetes mellitus with stage 4 chronic kidney disease, with long-term current use of insulin ([facility]); Morbid obesity ([facility]); SHADE (obstructive sleep apnea); Myocardial bridge ([facility]); Orthostatic hypotension; CKD (chronic kidney disease) stage 4, GFR 15-29 ml/min ([facility]); Anxiety; Tardive dyskinesia; Ascending aorta dilatation 10/23/2024 Travel from Last 3 Months Family History Medical History Relation Comments Anesthesia No Family History Social History Tobacco Use Types Packs/Day Years Used Date Smoking Tobacco: Never Passive Smoke Exposure: Past Smokeless Tobacco: Never Tobacco Cessation:Counseling Given: Not Answered Alcohol Use Standard Drinks/Week Comments Yes 0 (1 standard drink = 0.6 oz pur e alcohol) [facility] Area Deprivation Index Answer Date Jhon rded National Score (1-100), lower number is lower ri sk 78 06/15/2024 State Score (1-10), lower number is lower risk 6 06/15/2024 Data from: https://www.neighborhoodatlas.medicine.[facility].edu/. Last address used for calculation [address] [place] [address] 06/15/2024 Sex and Gender Information Value Date Recorded Sex Assigned at Not on file Legal Sex Male 2:15 PM EST Gender Identity Not on file Sexual Orientation Not on file Last Filed Vital Signs Vital Sign Reading Time Taken Comments Blood Pressure 118/81 11/30/2024 8:07 AM EDT Pulse 67 11/30/2024 8:07 AM EDT Temperature 36.3 C (97.4 F) 11/30/2024 8:07 AM EDT Respiratory Rate 16 11/08/2024 11:07 AM EDT Oxygen Saturation 98% 11/14/2024 9:57 AM EDT Inhaled Oxygen Concentration - - Weight 146.5 kg (323 lb) 11/06/2024 10:21 PM EDT Height 190.5 cm (6' 3 ) 11/06/2024 10:21 PM EDT Body Mass Index 40.37 11/06/2024 10:21 PM EDT Plan of Treatment Upcoming Encounters Date Type Department Care Team (Late st Contact Info) Description 12/27/2024 1:45 PM EDT Office Visit OPHT Ophthalmology [address] [place] [address] Cinthya Velazquez MD [address] [place] [address] Diagnostics, [facility] [address] [phone] CAT EVAL ref by Dr. Stout 01/09/2025 3:00 PM EDT Office Visit Plastic Surgery [address] [address] Abhi Galicia MD [address] [place] [address] [phone] 3 week follow up 02/18/2025 10:00 AM EST Office Visit Urology [address] [address] Van Acosta MD [address] [place], [place] [phone] 2 month follow up add on ok per dr acosta Health Maintenance Due Date Last Done Comments Dilated Retinal Exam 01/20/1972 Urine Albumin:Creatinine Ratio 01/20/1972 Annual PCP Team Chronic Disease Visit 01/20/1980 Depression Screening 01/20/1980 HIV Screening 01/20/1980 Hepatitis C Screening 01/20/1980 LDL Cholesterol 01/20/1980 DTaP,Tdap,Td Vaccine (1 - Tdap) 1981 Pneumococcal Vaccine: 50+ (1 of 2 - PCV) 1981 CT Colonography 2007 Cologuard (FIT-DNA) 2007 Fecal Occult Blood 2007 Sigmoidoscopy 2007 Shingrix Vaccine (1 of 2) 01/20/2012 Colonoscopy 06/10/2019 06/09/2018 Colorectal Cancer Screening 06/10/2019 RSV Vaccine (1 - Risk 60-74 years 1-dose series) 2022 Influenza Vaccine (#1) 2024 04/19/2024, 2022 HbA1C 02/09/2025 08/09/2024, 03/0 10/2024, 05/10/2024 Diabetic Foot Exam 09/11/2025 09/11/2024 Hemoglobin/Hematocrit 11/07/2025 11/07/2024 , 11/06/2024, 10/23/2024 Serum Creatinine 11/07/2025 11/07/2024, , 10/23/2024 Prostate Cancer Screening Discussion 08/28/202908/10 Procedures Procedure Name Priority Date/Time Associated Diagnosis Comments PHOTO PENIS DORSAL 11/30/2024 8: 31 AM EDT GLUCOSE, BLOOD (POC) Routine 11/08/2024 11:20 AM EDT GLUCOSE, BLOOD (POC) Routine 11/08/2024 8:22 AM EDT GLUCOSE, BLOOD (POC) Routine 11/07/2024 7:55 PM EDT GLUCOSE, BLOOD (POC) Routine 11/07/2024 6:20 PM EDT GLUCOSE, BLOOD (POC) Routine 11/07/2024 12:08 PM EDT GLUCOSE, BLOOD (POC) Routine 11/07/2024 7:57 AM EDT BASIC METABOLIC PANEL Routine 11/07/2024 12:14 AM EDT CBC + DIFF Routine 11/07/2024 12:14 AM EDT GLUCOSE, BLOOD (POC) Routine 11/06/2024 6:02 PM EDT BASIC METABOLIC PANEL STAT 11/06/2024 1:21 PM EDT CBC + DIFF STAT 11/06/2024 1:21 PM EDT GLUCOSE, BLOOD (POC) Routine 11/06/2024 1:15 PM EDT GLUCOSE, BLOOD (POC) Routine 11/06/2024 12:29 PM EDT GLUCOSE, BLOOD (POC) Routine 11/06/2024 9:47 AM EDT SURGICAL PATHOLOGY Routine 11/06/2024 9: 03 AM EDT Acquired buried penis PERIPHERAL IV PLACEMENT Routine 11/06/2024 7:38 AM EDT INTUBATION Routine 11/06/2024 7:31 AM EDT PREP SITE F/S/N/H/F/G/M/D GT ADDL 100 SQ CM/1PCT 11/06/2024 7:21 AM EDT Acquired buried penis SPLIT AGRFT F/S/N/H/F/G/M/D GT 1ST 100 CM/</1 % 11/06/2024 7:21 AM EDT Acquired buried penis PLASTIC RPR PENIS CORRECT ANGULATION 11/06/2024 7:21 AM EDT Acquired buried penis ATT/R ANY AREA DEFECT EA ADDL 30SQCM OR PART 11/06/2024 7:21 AM EDT Acquired buried penis PREP SITE F/S/N/H/F/G/M/D GT 1ST 100 SQ CM/1PCT 11/06/2024 7:21 AM EDT Acquired buried penis ATT/R ANY AREA DEFECT 30.1-60SQCM 11/06/2024 7:21 AM EDT Acquired buried penis RESECTION SCROTUM 11/06/2024 7:2 1 AM EDT Acquired buried penis GLUCOSE, BLOOD (POC) Routine 11/06/2024 6:17 AM EDT COMPLETE BLOOD COUNT Routine 10/23/2024 12:13 PM EDT Acquired buried penis BASIC METABOLIC PANEL Routine 10/23/2024 12:13 PM EDT Acquired buried penis ECG COMPLETE Routine 10/23/2024 12:00 PM EDT Acquired buried penis HEMOGLOBIN A1C Routine 06/15/2024 2:05 PM EST Acquired buried penis Encounter for screening for diabetes mellitus from Last 3 Months or Most Recently Relevant to Health Maintenance Results * PHOTO PENIS DORSAL (11/30/2024 8:31 AM EDT) Anatomical Region Laterality Modality Other 11/30/2024 8:31 AM EDT us [facility] Provider IMAGES Final Result * (ABNORMAL) GLUCOSE, BLOOD (POC) (11/08/2024 11:20 AM EDT) Only the most recent of11 resultswithin the time period is included. [facility] Glucose, Point of Care 219(A) 74 - 99 mg/dL [facility] Comment: Location:[facility], [address] [place] [address], [facility] The Accu-Chek Inform II glucose meter has not been approved for testing on patients receiving intensive medical intervention or therapy and results from this point of care glucose test should not be used for patient management decisions in these cases. Inaccurate results may also occur from other interfering factors, such as N-acetylcysteine (blood concentrations of greater than 5mg/dL), galactose, extremes of hematocrit (<10 or >65), or high doses of ascorbic acid (vitamin C) greater than 3mg/dL. Consider alternate testing mechanisms (e.g. core lab, blood gas instrument) in the above situations. 11/08/2024 11:2 0 AM EDT us Van Acosta MD POC TESTING Final Result [facility] POINT OF CARE [facility] [address] [place], [place] * (ABNORMAL) COMPLETE BLOOD COUNT AND DIFFERENTIAL (11/07/2024 12:14 AM EDT) Only the most recent of2 resultswithin the time period is included. WBC 14.38(H) 3.70 - 11.00 k/uL 11/07/2024 1:39 AM EDT [facility] RBC 4.47 4.20 - 6.00 m/uL 11/07/2024 1:39 AM EDT [facility] Hemoglobin 13.5 13.0 - 17.0 g/dL 11/07/2024 1:39 AM EDT [facility] Hematocrit 39.3 39.0 - 51.0 % 11/07/2024 1:39 AM EDT [facility] MCV 87.9 80.0 - 100.0 fL 11/07/2024 1:39 AM EDT [facility] MCH 30.2 26.0 - 34.0 pg 11/07/2024 1:39 AM EDT [facility] MCHC 34.4 30.5 - 36.0 g/dL 11/07/2024 1:39 AM EDT [facility] RDW-CV 13.1 11.5 - 15.0 % 11/07/2024 1:39 AM EDT [facility] Platelet Count 227 150 - 400 k/uL 11/07/2024 1:39 AM EDT [facility] MPV 10.3 9.0 - 12.7 fL 11/07/2024 1:39 AM EDT [facility] Neutrophils % 80.9 % 11/07/2024 1:39 AM EDT [facility] Abs Neut 11.62(H) 1.45 - 7.50 k/uL 11/07/2024 1:39 AM EDT [facility] Lymphocytes % 10.8 % 11/07/2024 1:39 AM EDT [facility] Abs Lymph 1.56 1.00 - 4.00 k/uL 11/07/2024 1:39 AM EDT [facility] Monocytes % 7.4 % 11/07/2024 1:39 AM EDT [facility] Abs Avery 1.07(H) <0.87 k/uL 11/07/2024 1:39 AM EDT [facility] Eosinophils % 0.1 % 11/07/2024 1:39 AM EDT [facility] Abs Eosin <0.03 <0.46 k/uL 11/07/2024 1:39 AM EDT [facility] Basophils % 0.3 % 11/07/2024 1:39 AM EDT [facility] Abs Baso 0.04 <0.11 k/uL 11/07/2024 1:39 AM EDT [facility] Immature Granulocytes % 0.5 % 11/07/2024 1:39 AM EDT [facility] Abs Immature Gran 0.07 <0.10 k/uL 11/07/2024 1:39 AM EDT [facility] NRBC 0.0 /100 WBC 11/07/2024 1:39 AM EDT [facility] Absolute nRBC <0.01 <0.01 k/uL 11/07/2024 1:39 AM EDT [facility] Diff Type Auto 11/07/2024 1:39 AM EDT [facility] Blood BLOOD SPECIMEN / Unknown Venipuncture / Unknown 11/07/2024 12:14 AM EDT 11/07/2024 1:05 AM EDT us Van Acosta MD LABORATORY Final Result [facility] [address] [place] [address], * (ABNORMAL) BASIC METABOLIC PANEL (11/07/2024 12:14 AM EDT) Only the most recent of3 resultswithin the time period is included. Glucose 183(H) 74 - 99 mg/dL 11/07/2024 2:50 AM EDT [facility] Comment: The [place] Diabetes Association (ADA) provides guidance for cutoff values for fasting glucose and random glucose. The ADA defines fasting as no caloric intake for at least 8 hours. Fasting plasma glucose results between 100 to 125 mg/dL indicate increased risk for diabetes (prediabetes). Fasting plasma glucose results greater than or equal to 126 mg/dL meet the criteria for diagnosis of diabetes. In the absence of unequivocal hyperglycemia, results should be confirmed by repeat testing. In a patient with classic symptoms of hyperglycemia or hyperglycemic crisis, random plasma glucose results greater than or equal to 200 mg/dL meet the criteria for diagnosis of diabetes. Reference: Standards of Medical Care in Diabetes 2016, [place] [employer] Association. Diabetes Care. 2016.39(Suppl 1). BUN 24 9 - 24 mg/dL 11/07/2024 2:50 AM [facility] Creatinine 2.10(H) 0.73 - 1.22 mg/dL 11/07/2024 2:50 AM [facility] Sodium 137 136 - 144 mmol/L 11/07/2024 2:50 AM [facility] Potassium 4.3 3.7 - 5.1 mmol/L 11/07/2024 2:50 AM [facility] Chloride 105 98 - 107 mmol/L 11/07/2024 2:50 AM [facility] CO2 17(L) 22 - 30 mmol/L 11/07/2024 2:50 AM [facility] Anion Gap 15 8 - 15 mmol/L 11/07/2024 2:50 AM [facility] Calcium, Total 8.5 8.5 - 10.2 mg/dL 11/07/2024 2:50 AM [facility] Estimated Glomerular Filtration Rate 35(L) >=60 mL/min/1. 73m 11/07/2024 2:50 AM [facility] Comment:Estimated Glomerular Filtration Rate (eGFR) is calculated using the 2020 CKD-EPI creatinine equation. This equation utilizes serum creatinine, sex, and age as parameters. The creatinine assay has traceable calibration to isotope dilution- mass spectrometry. Refer to KDIGO guidelines for clinical interpretation. In patients with unstable renal function, e.g. those with acute kidney injury, the eGFR may not accurately reflect actual GFR. Blood BLOOD SPECIMEN / Unknown Venipuncture / Unknown 11/07/2024 12:14 AM EDT 11/07/2024 1:05 AM EDT Van Acosta MD LABORATORY Final Result [facility] [address] [place] [address], [place] * SURGICAL PATHOLOGY (11/06/2024 9:03 AM EDT) Case Report Surgical Pathology Report Case: [id number] Authorizing Provider: Van Acosta MD Collected: 11/06/2024 09:03 AM Ordering Location: Admitting Received: 11/06/2024 09:08 AM Pathologist: David Palomino MD Intraop: Maritza Ballard MD Specimens: A) - Penis, Biopsy, penile skin rule out squamous cell carcinoma B) - Soft Tissue (Not otherwise specified), escutcheon 11/08/2024 1:54 PM EDT [facility] FINAL DIAGNOSIS A. Skin, penis, biopsy: - Scar-like tissue with minor chronic inflammation. - Negative for neoplasm. B. Skin, escutcheon, escutcheonectomy: - Benign skin and subcutaneous tissue with minor fibrosis. BZS 11/08/24 11/08/2024 1:54 PM EDT [facility] at 1354 EDT Gross Description A. Penis, Biopsy Received fresh for intraoperative consultation labeled penis, biopsy are 2 unoriented fragments. The first is a cauterized fragment of red soft tissue measuring 0.6 x 0.4 x 0.3 cm. The second is pink to red-negrete fragment of soft tissue with possible mucosal surface that measures 1.0 x 0.5 x 0.4 cm. Both fragments are entirely submitted for frozen section in FSA1. Gross examination performed at [facility], [address] [place], [place] [address]., [place] [address] CLIA# [id number] 11/06/24 9:21 AM B. Soft Tissue (Not otherwise specified) Received fresh labeled escutcheon is a segment of negrete soft tissue measuring 25 x 9.5 x 5 cm, weighing 517.6 g. The wrinkled skin surface is abundantly hairbearing and grossly unremarkable. Sectioning reveals negrete, glistening predominantly fatty cut surfaces. Skein Yarn Drier sections are submitted in 2 cassettes to include skin. Gross examination performed at [facility], [address] [place], [place] [id number] [facility] November 06, 2024 3:38 PM 11/08/2024 1:54 PM EDT [facility] Intraoperative Diagnosis A. Penis, Biopsy FSA1. Negative for carcinoma. Dr. Ballard. Intraoperative diagnosis performed at [facility], [address] [place] [address] CLIA# [id number] 11/08/2024 1:54 PM EDT [facility] Clinical History Pre-op diagnosis: Acquired buried penis [N48.83] 11/08/2024 1:54 PM EDT [facility] Performing Lab Diagnostic interpretation performed at: [facility], [address] [place] [address], [place] [address] CLIA# [id number] Military Lawyer: Harshad Roy MD 11/08/2024 1:54 PM EDT [facility] Disclaimer Laboratory Developed Test (LDT) Disclaimer: Performance characteristics of immunohistochemic al, immunofluorescent , and chromogenic in-situ hybridization tests have been determined by the performing laboratory within [facility]'s [facility] Pathology and Laboratory Medicine Department ([facility], [facility], [facility], [facility], [facility], [facility], or [facility]) in a manner consistent with CLIA requirements. One or more of these tests may not have been cleared or approved by the FDA. [facility] is regulated under CLIA as qualified to perform high-complexity testing. These tests are used for clinical purposes. These should not be regarded as investigational or for research. Positive and negative controls stain appropriately. 11/08/2024 1:54 PM EDT [facility] Tissue BIOPSY OF PENIS / Unknown 11/06/2024 9:03 AM EDT 11/06/2024 9:08 AM EDT Comment:Pre-op diagnosis: Acquired buried penis [N48.83] Tissue specimen (specimen) SOFT TISSUE SPECIMEN / Unknown 11/06/2024 9:48 AM EDT 11/06/2024 1:22 PM EDT Comment:Pre-op diagnosis: Acquired buried penis [N48.83] us Van Acosta MD SURGICAL PATHOLOGY Final Result [facility] [address] [facility] [address] [place] [address], [place] * PERIPHERAL IV PLACEMENT (11/06/2024 7:38 AM EDT) Narrative Chelsea Mendoza APRN.PAPER MACHINE TENDER - 11/06/2024 7:38 AM EDT Chelsea Mendoza APRN.CRNA 11/06/2024 8:10 AM PIV General Information Procedure Start Time/Medication Administration: 11/06/2024 7:38 AM Procedure End Time: 11/06/2024 7:40 AM Patient Location: OR Staffing Anesthesiologist: Mauricio Hennessy MD Performed by: anesthesiologist Preparation Sterility Preparation: hand hygiene performed prior to procedure, surgical cap used, mask used Site Prep: alcohol Procedure Details Indication: need for IV access Needle Size/Type: 16 gauge angiocath Orientation: Left Location: Hand Imaging Guidance Used: No Mauircio Hennessy MD ANESTHESIA ORDERABLES Final Resu lt * Airway (11/06/2024 7:31 AM EDT) Narrative Chelsea Mendoza APRN.PAPER MACHINE TENDER - 11/06/2024 7:31 AM EDT Chelsea Mendoza APRN.CRNA 11/06/2024 8:09 AM Airway General Information Procedure Start Time/Medication Administration: 11/06/2024 7:31 AM Procedure End Time: 11/06/2024 7:36 AM Patient location during procedure: OR Timeout Performed Pre-procedure: timeout performed Consent Obtained: Yes Patient identity confirmed: arm band, care steam tunnel feeder and patient Staffing PAPER MACHINE TENDER: Chelsea Mendoza APRN.PAPER MACHINE TENDER Performed by: GUSTABO Indications and Patient Condition Indications for airway management: anesthesia and airway protection Preoxygenated: yes Patient position: ramp Method: asleep Cricoid Pressure: No Manual In-Line Stabilization: No Difficult Mask: No Airway Accessory: oral airway Final Airway Details Final airway type: endotracheal airway Final Endotracheal Airway: ETT Cuffed: yes Successful intubation technique: video laryngoscopy Devices used: Hartman Endotracheal tube insertion site: oral Blade: Ashley Blade size: #4 ETT size (mm): 7.5 Measured from: teeth Measurement (cm): 23 Placement verified by: chest auscultation and capnometry Cormack-Lehane Classification: grade I - full view of glottis Number of attempts at approach: 1 Failed airway: no Unrecognized esophageal intubation: no Airway not difficult us Mauricio Hennessy MD ANESTHESIA ORDERABLES Final Resu lt * COMPLETE BLOOD COUNT (10/23/2024 12:13 PM EDT) WBC 9.42 3.70 - 11.00 k/uL 10/23/2024 1:38 PM EDT [facility] RBC 5.00 4.20 - 6.00 m/uL 10/23/2024 1:38 PM EDT [facility] Hemoglobin 15.2 13.0 - 17.0 g/dL 10/23/2024 1:38 PM EDT [facility] Hematocrit 43.5 39.0 - 51.0 % 10/23/2024 1:38 PM EDT [facility] MCV 87.0 80.0 - 100.0 fL 10/23/2024 1:38 PM EDT [facility] MCH 30.4 26.0 - 34.0 pg 10/23/2024 1:38 PM EDT [facility] MCHC 34.9 30.5 - 36.0 g/dL 10/23/2024 1:38 PM EDT [facility] RDW-CV 12.9 11.5 - 15.0 % 10/23/2024 1:38 PM EDT [facility] Platelet Count 241 150 - 400 k/uL 10/23/2024 1:38 PM EDT [facility] MPV 10.4 9.0 - 12.7 fL 10/23/2024 1:38 PM EDT [facility] Absolute nRBC <0.01 <0.01 k/uL 10/23/2024 1:38 PM EDT [facility] Blood BLOOD SPECIMEN / Unknown Venipuncture / Unknown 10/23/2024 12:13 PM EDT 10/23/2024 12:14 PM EDT Van Acosta MD LABORATORY Final Result Performing Organization Address City/[facility]/ZIP Co de Phone Number [facility] [address] [place] [address], * ECG COMPLETE (10/23/2024 12:00 PM EDT) Ventricular Rate 72 BPM [facility] Atrial Rate 72 BPM [facility] P-R Interval 186 ms [facility] QRS Duration 96 ms [facility] QT Interval 410 ms [facility] QTC Calculation (Bazett) 448 ms [facility] Calculated P Mallory 67 degrees [facility] Calculated R Mallory -3 degrees [facility] Calculated T Mallory 24 degrees [facility] 10/23/2024 12:0 0 PM EDT Impressions [facility] - 11/11/2024 8:10 PM EDT NORMAL SINUS RHYTHM NORMAL ECG Confirmed by MD ACOSTA TAMANNA ([id number]) on 11/11/2024 8:10:21 PM Narrative [facility] - 11/11/2024 8:10 PM EDT NAME : STEVEN WALDEN PID : [id number] : 1960 Gender : Male Race : ORD : [id number] Procedure Date : Oct 23 2024 12:00:20 Edit Date : Nov 11 2024 20:10:23 Diagnosis: NORMAL SINUS RHYTHM NORMAL ECG Confirmed by MD ACOSTA TAMANNA ([id number]) on 11/11/2024 8:10:21 PM Test Reason : Location : 119 : A17 A17-01 Overread By : MD ACOSTA TAMANNA Edited By : MD ACOSTA TAMANNA Referred By : , Acquired by : MICHELLE MORGAN Van Acosta MD EKG Final Result [facility] [address] [place] [address] * (ABNORMAL) HEMOGLOBIN A1C (06/15/2024 2:05 PM EST) Hemoglobin A1C 7.1(H) 4.3 - 5.6 % 06/15/2024 6:21 PM EST [facility] Comment:[place] Diabetes As sociation guidelines indicate that patients with HgbA1c in the range 5.7-6.4% are at increased risk for development of diabetes, and intervention by lifestyle modification may be beneficial. HgbA1c greater or equal to 6.5% is considered diagnostic of diabetes. Estimated Average Glucose 157 mg/dL 06/15/2024 6:21 PM EST [facility] Comment:eAG: (Estimated aver age glucose) is a calculated value from HgbA1c and is appeals representative of the average blood glucose level in the last 2-3 month period. Blood BLOOD SPECIMEN / Unknown Venipuncture / Unknown 06/15/2024 2:05 PM EST 06/15/2024 2:05 PM EST us Lakisha Gastelum BALL SHAGGER.ROUNDING MACHINE OPERATOR LABORATORY Fin al Result [facility] [address] [address], from Last 3 Months or Most Recently Relevant to Health Maintenance Insurance MEDICARE [facility] PPO
--- OUTSIDE RECORDS SUMMARY | 2024-12-26 13:19 | XMS_ITS | Clinical Summary ---
Author Organization [facility] Address [address] [address] Care Team Providers Care Operations Intern Name Role Phone Slick Villaseñor MD Primary Care Provider [phone] Allergies No known active allergies Medications allopurinol (Zyloprim) 100 mg tablet Take 100 mg by mouth in the morning. Active brexpiprazole 2 mg tablet 2 mg. Active gabapentin (Neurontin) 300 mg capsule Take 300 mg by mouth in the morning. Active mirtazapine (Remeron) 45 mg tablet Take 1 tablet every day by oral route. Active omeprazole (PriLOSEC) [address] capsule Take 1 capsule every day by oral route. Active venlafaxine (Effoxor) 100 mg tablet Take 1 tablet twice a day by oral route. Active albuterol 90 mcg/actuation inhaler Inhale 2 puffs. Acti ve budesonide-formote roL (Symbicort) 80-4.5 mcg/actuation inhaler Inhale 2 puffs. 07/09/19 23 Active insulin glargine (Lantus) 100 unit/mL (3 mL) pen Inject 25 Units under the skin. 07/09/19 23 Active lamoTRIgine (LaMICtal) 200 mg tablet Take 1 tablet by mouth in the morning. 07/09/19 23 Active venlafaxine XR (Effexor-XR) 75 mg 24 hr capsule TAKE 1 CAPSULE (75 MG) BY MOUTH IN THE MORNING DO NOT CRUSH OR CHEW 09/08/19 23 Active venlafaxine XR (Effexor-XR) 150 mg 24 hr capsule Take 150 mg by mouth in the morning. 04/15/19 23 Active midodrine (Proamatine) 2.5 mg tabletIndications: Autonomic neuropathy due to type 2 diabetes mellitus (CMS/HCC) Take 2 tablets (5 mg) by mouth with breakfast, with lunch, and with evening meal. Will take 2 tablets if SBP seated 100mmhg or less 540 tablet 3 09/25/19 23 Active Additional Information Patient taking differently: 2.5 mgoralOnce Daily, (No instructions reported), Reported on 02/29/2024 furosemide (Lasix) 40 mg tablet Take 40 mg by mouth in the morning. 10/02/19 23 Active folic acid (Folvite) 1 mg tablet TAKE 1 TABLET BY MOUTH ONCE DAILY FOR 90 DAYS 03/28/20 23 Active sertraline (Zoloft) 100 mg tablet 150 mg 1 (one) time each day. 07/13/19 24 Active Vitamin B-1, mononitrate, 100 mg tablet Use 1 tablet in the mouth or throat in the morning. 07/13/19 24 Active potassium chloride CR (K-Tab) 20 mEq ER tablet TAKE 1 TABLET BY MOUTH EVERY DAY WITH FOOD FOR 90 DAYS 05/04/19 24 Active Trulicity 3 mg/0.5 mL pen injector INJECT 3 MG SUBCUTANEOUSLY ONCE A WEEK 10/03/19 23 Active hydrOXYzine pamoate (Vistaril) 50 mg capsule TAKE 1 CAPSULE BY MOUTH EVERY 8 HOURS NEEDED FOR ITCHING OR ANXIETY 07/07/19 24 Active QUEtiapine (SEROquel) 100 mg tablet Take 150 mg by mouth at bedtime. 06/16/19 24 Active QUEtiapine (SEROquel) 25 mg tablet Take 25 mg by mouth if needed in the morning and at bedtime. 07/15/19 24 Active traZODone (Desyrel) 50 mg tablet TAKE 1 TABLET BY MOUTH EVERY DAY AT BEDTIME NEEDED FOR SLEEP 05/25/19 24 Active Ingrezza 60 mg capsule Take 60 mg by mouth in the morning. 09/07/19 24 Active HumuLIN R U-500, Conc, Kwikpen 500 unit/mL (3 mL) CONCENTRATED injection pen INJECT 30 - 40 - 50 UNITS SUBCUTANEOUSLY TWICE A DAY DIRECTED (EXPECT DOSE OF 150 UNITS DAILY) Active sodium bicarbonate 650 mg tablet Take 650 mg by mouth in the morning and at bedtime. Active atorvastatin (Lipitor) 20 mg tabletIndications: Mixed hyperlipidemia Take 1 tablet (20 mg) by mouth at bedtime. 90 tablet 3 02/29/20 24 025 Active Active Problems Problem Noted Date Diagnosed Date Nephrolithiasis 02/29/2024 Severe recurrent major depre ssion without psychotic features 12/15/2023 Anemia 10/09/2023 Folate deficiency 10/09/2023 Hyperparathyroid bone disease 10/09/2023 Hypokalemia 10/09/2023 Tardive dyskinesia 07/27/2023 Acute respiratory alkalosis 07/19/2023 04/0 12/2023 Hyperventilation 07/19/2023 07/19/2023 UTI (urinary tract infection) 07/19/2023 Acute cystitis without hematuria 03/08/2023 07/19/2023 Overview (07/19/2023): Last Assessment & Plan: Add Probiotic to help replenish the good bacteria that are destroyed by the Antibiotics Florastor Florajen Align or try Activia in Yogurt Probiotics reduce the risk of antibiotic induced diarrhea Confusion 03/08/2023 07/19/2023 Overview (07/19/2023): Last Assessment & Plan: Consider direct admit Panic attack 03/08/2023 07/19/2023 Overview (07/19/2023): Last Assessment & Plan: Was in the psyche unit for 2 weeks Consider Sojourn Lorazepam 1 mg every 8 hours x 72 hrs. Consider Direct admit Screening PSA (prostate specific antigen) 202207/19/2023 Benign prostatic hyperplasia 12/05/202212/2023 Insomnia 12/05/2022 07/19/2023 Microalbuminuric diabetic nephropathy 12/05/2022 07/19/2023 Migraine headache 12/05/2022 07/19/2023 Nephrosclerosis 12/05/2022 07/19/2023 History of anemia of chronic disease 07/17/2022 Syncope 07/15/2022 Orthostatic hypotension 07/15/2022 History of hydronephrosis 07/15/2022 ESRD (end stage renal disease) 07/15/2022 Metabolic acidosis 06/29/2022 Dependent on hemodialysis 06/29/2022 Hyponatremia 06/21/2022 Bandemia 06/20/2022 Pyelonephritis of left kidney 06/20/2022 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 Tremor 06/07/2022 Major depressive disorder, recurrent, moderate 0 06/07/2022 BRITTANY (generalized anxiety disorder) 06/03/2022 Debility 06/01/2022 Acute kidney injury superimposed on CKD 05/28/19 DAISY (acute kidney injury) 05/28/2022 Atrophy of right kidney 05/28/2022 Urinary tract obstruction by kidney stone 2022 Left ureteral stone 05/28/2022 Hyperlipidemia 05/28/2022 Diabetes mellitus type 2 in obese 05/28/2022 Finger injury, right, initial encounter 12/26/19 Overview (12/25/2021): Added automatically from request for surgery [id number] 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/04/2021 Class 3 severe obesity due t o excess calories with body mass index (BMI) of 40.0 to 44.9 in adult 01/15/2021 Anxiety 10/23/2019 Moderate major depression, single episode 2018 shelter current use of insulin 01/24/2019 Lymphedema 08/24/2018 Chronic gouty arthritis 08/15/2018 Mononeuropathy of lower extremity 08/15/2018 Disorder of nervous system due to type 2 diabete s mellitus 08/15/2018 Duodenal ulcer 05/29/2018 Constipation 05/15/2018 Major depression 05/15/2018 Chest pain 08/12/2016 Obstructive sleep apnea syndrome 08/12/2016 Obesity 08/12/2016 Dyspnea 08/12/2016 Dizziness 08/12/2016 Diabetes mellitus 08/12/2016 Peripheral vascular disease 07/06/2016 Primary hypertension 12/18/2015 Pure hyperglyceridemia 06/27/2015 Migraine without aura, not refractory 06/27/2015 Diabetic neuropathic arthropathy 03/18/2015 Stage 3 chronic kidney disease 02/20/2015 Polyneuropathy due to type 2 diabetes mellitus 1 04/22/2014 Diabetic renal disease 02/20/2015 4 Overview (07/19/2023): Last Assessment & Plan: Sees Dr. Houser Adjustment disorder with depressed mood 02/07/20 15 Primary gout 02/06/2015 Edema 02/06/2015 Diabetes mellitus due to und erlying condition, uncontrolled, with hyperglycemia 02/06/2015 Poorly controlled diabetes mellitus 02/06/2015 07/19/2023 Social History Tobacco Use Types Packs/Day Years Used Date Smoking Tobacco: Never Smokeless Tobacco: Never Tobacco Cessation:Counseling Given: Not Answered Alcohol Use Standard Drinks/Week Comments Never 0 (1 standard drink = 0.6 oz pur e alcohol) Humiliation, Afraid, Rape, and Kick questionnair e Answer Date Recorded Within the last year, have y ou been afraid of your partner or ex-partner? No 09/24/2022 Within the last year, have y ou been humiliated or emotionally abused in other ways by your partner or ex-partner? No Within the last year, have y ou been kicked, hit, slapped, or otherwise physically hurt by your partner or ex-partner? No 09/24/2022 Within the last year, have y ou been raped or forced to have any kind of sexual activity by your partner or ex-partner? No 09/24/2022 PHQ-2 Answer Date Recorded Patient Health Questionnaire-2 Score 6 09/24/2022 [place] Safety & Environment Answer Date Rec orded Fear of Current or Ex-Partner Not on file Emotionally Abused Not on file 09/28/2023 Physically Abused Not on file 09/28/2023 Sexually Abused Not on file 09/28/2023 Physically or Sexually Abused Not on file Hunger Vital Sign Answer Date Recorded Within the past 12 months, y ou worried that your food would run out before you got the money to buy more. Never true 09/25/19 23 Ran Out of Food in the Last Year Not on file 09/24/2022 Sex and Gender Information Value Date Recorded Sex Assigned at Not on file Legal Sex Male 10:41 PM EDT Gender Identity Not on file Sexual Orientation Not on file Last Filed Vital Signs Vital Sign Reading Time Taken Comments Blood Pressure 112/80 02/29/2024 11:21 AM EST Pulse 86 02/29/2024 11:21 AM EST Temperature 36.4 C (97.5 F) 12/29/2021 3:40 PM EDT Respiratory Rate 14 12/29/2021 3:40 PM EDT Oxygen Saturation 96% 02/29/2024 11:21 AM EST Inhaled Oxygen Concentration - - Weight 144 kg (318 lb) 02/29/2024 11:21 AM EST Height 190.5 cm (6' 3 ) 02/29/2024 11:21 AM EST Body Mass Index 39.75 02/29/2024 11:21 AM EST Plan of Treatment Health Maintenance Due Date Last Done Comments CT Colonography 1960 Diabetes: Hemoglobin A1C 1960 FIT-DNA 1960 FIT 1960 FOBT 1960 Medicare Annual Wellness (AWV) 1960 Sigmoidoscopy 1960 Diabetes: Retinopathy Screening 01/20/1972 Depression Screening 1974 Pneumococcal Vaccine: Pediat rics (0 to 5 Years) and At-Risk Patients (6 to 64 Years) (1 of 2 - PCV) 1981 Adult Tetanus 01/20/1984 Zoster Vaccines (1 of 2) 01/20/2012 COVID-19 Vaccine (2 - 2024-2 6 season) 2024 09/04/2020 Influenza Vaccine (#1) 2024 02/09/2023 Colonoscopy 06/09/2028 06/09/2018 Colorectal Cancer Screening 06/09/2028 HIB Vaccines Aged Out No longer eligi ble based on patient's age to complete this topic HPV Vaccines Aged Out No longer eligi ble based on patient's age to complete this topic IPV Vaccines Aged Out No longer eligi ble based on patient's age to complete this topic Meningococcal B Vaccine Aged Out No l onger eligible based on patient's age to complete this topic Meningococcal Vaccine Aged Out No benoit davion eligible based on patient's age to complete this topic Rotavirus Vaccines Aged Out No longer eligible based on patient's age to complete this topic Medical Devices Implanted Type Area Textile Machine Operator Device Identifier Shelf Expiration Date Model / Serial / Lot K-Wire,Threaded Tip,[id number] - [id number] Implanted:Qty: 4 on 12/29/2021 by Babar Chinchilla MD at [facility] Pin Right: Little Finger [employer]TE[employer] [id number] / / Description:SYNTHES MINI EX- FIX COMMON SET Insurance MEDICARE Care Teams Operations Intern Relationship Specialty Start Date End Date Slick Villaseñor MD [address] [place] [address] PCP - General 12/25/21
--- OUTSIDE RECORDS SUMMARY | 2024-12-26 13:19 | XMS_ITS | Encounter Summary ---
Author Organization [facility] Address [address] [place] [address] Care Team Providers Care Vice President Regulatory Name Role Phone Slick Villaseñor MD Primary Care Provider [phone] Anastacia Da Silva OVERHEAD CRANE INSPECTOR-COPPER PLATE LITHOGRAPHER Unavailable Belgica Ayers RN Unavailable [phone] Rachelle Monge SERVICE STATION HELPER Unavailable Encounter Details Date Type Department Care Team (Late st Contact Info) Description 05/03/2024 Abstract [facility] [place] [facility] 112 [facility] 110 [place] [phone] Slick Villaseñor MD 112 [facility] 110 [place], [place] [id number] Social History Tobacco Use Types Packs/Day Years [...] Never 01/04/2023 How often do you attend tenriism or anabaptism serv ices? Never 01/04/2023 Do you belong to any clubs o r organizations such as tenriism groups, unions, fraternal or athletic groups, or [...] Recorded Patient Health Questionnaire-2 Score 3 03/29/2024 [facility] [place] [facility] Occupat ional Health - Occupational Stress [...] place to sleep or slept in a penitentiary (including now)? No 01/04/2023 Education Answer Date [...] [facility] [address] [place] [address] Francisco Houser MD [address] [place] [address] 01/30/2025 8:30 AM EDT Office Visit [facility] [place] [facility] [address] [facility] [address] [place] [phone] Anastacia Da Silva, [facility]-COPPER PLATE LITHOGRAPHER [address] [facility] [address] [place] [address] 03/20/2025 8:00 AM EST Office Visit [facility] [address] [facility] [address] [place] [phone] Gordo Hayden MD 8516 [facility] [address] [address] documented as of this encounter Visit Diagnoses Not on filedocumented in this encounter Additional Health Concerns Assessment Noted Time PHQ-9 Depression Total Score: 11 024 9:32 AM EST documented as of this encounter Care Teams Vice President Regulatory Relationship Specialty Start Date End Date Slick Villaseñor MD [address] [facility] [address] [place] [address] PCP - General Family Medicine 08/14/22 Anastacia Da Silva, OVERHEAD CRANE INSPECTOR-[facility] [address] [facility] [address] [place] [address] PCP - [facility] 12/10/22 Belgica Ayers, RN [address] [place] [address] Clinical Advocate Family Medicine 05/18/24 06/29/24 Rachelle Monge LPN [address] [facility] [address] [place] [address] 06/29/24 documented as of this encounter
--- OUTSIDE RECORDS SUMMARY | 2024-12-26 13:19 | XMS_ITS | Encounter Summary ---
Author Organization [facility] Address [address] [place] [address] Care Team Providers Care Vice President Marketing & Development Name Role Phone Slick Villaseñor MD Primary Care Provider Anastacia Da Silva KAIAKO KURA KAUPAPA MAORI-INTERVENTIONAL CARDIOLOGIST Unavailable Belgica Ayers RN Unavailable [phone] Rachelle Monge YARDER Unavailable Encounter Details Date Type Department Care Team (Late st Contact Info) Description 09/13/2022 Orders Only [facility] [place] [facility] [address] [facility] [address] [place] [address] Slick Villaseñor MD [address] [facility] [address] [place], [place] [id number] Social History Tobacco Use Types Packs/Day Years [...] [place] [facility] [address] [place] [phone] Francisco Houser MD [address] [place] [address] 01/30/2025 8:30 AM EDT Office [facility] [address] [place] [address] [place] [address] Anastacia Da Silva, KAIAKO KURA KAUP[place] MAORI-INTERVENTIONAL CARDIOLOGIST [address] [facility] [address] [place] [address] 03/20/2025 8:00 AM EST Office Visit [facility] [place] [facility] [address] [place] [address] [place] [address] Gordo Hayden MD 7124 [facility] [address] [id number] documented as of this encounter Procedures Procedure Name Priority Date/Time Associated Diagnosis Comments POLYSOMNOGRAPHY Routine 08/01/2022 9:38 AM EDT documented in this encounter Results * Polysomnography (08/01/2022 9:38 AM EDT) Slick Villaseñor MD [facility] ORDERABLES Final Re sult documented in this encounter Visit Diagnoses Not on filedocumented in this encounter Additional Health Concerns Assessment Noted Time PHQ-9 Depression Total Score: 13 023 11:02 AM EDT documented as of this encounter Care Teams Vice President Marketing & Development Relationship Specialty Start Date End Date Slick Villaseñor MD [address] [facility] [address] [place] [address] PCP - General Family Medicine 08/14/22 Anastacia Da Silva, KAIAKO KURA K[place]UPAP[place] MAORI-INTERVENTIONAL CARDIOLOGIST [address] [facility] [address] [place] [address] PCP - [place] [facility] 12/10/22 Belgica Ayers, RN [address] [place] [address] Clinical Advocate Family Medicine 05/18/24 06/29/24 Rachelle Monge LPN 112 [facility] 110 [place] [address] 06/29/24 documented as of this encounter
--- OUTSIDE RECORDS SUMMARY | 2024-12-26 13:19 | XMS_ITS ---
Author Organization [facility] Address [address] [facility] [place] [address] Care Team Providers Care Road Packer Operator Name Role Phone Slick Villaseñor MD Primary Care Provider [phone] Rachelle Monge LPN Unavailable Chronic Care Management (CCM) Status:Enrolled (Active) Start date:08/26/2022 Enrollment date:08/26/2022 Overview 02/01/23, 3:56 PM - Roslyntuesday, SONIA- Patient gives verbal consent to be enrolled in CCM Program and understands there could be a bill for this service. Case Team Name Relationship Phone Rachelle Monge LPN(Responsible Staff) [phone] Continued Care and Services Coordination
--- OUTSIDE RECORDS SUMMARY | 2024-12-26 13:19 | XMS_ITS | Encounter Summary ---
Author Organization [facility] Address [address] [place] [address] Care Team Providers Care Biodiesel Plant Superintendent Name Role Phone Slick Villaseñor MD Primary Care Provider [phone] Anastacia Da Silva SUPERVISOR SHUTTLE FITTING-REGISTER REPAIRER Unavailable Belgica Ayers RN Unavailable [phone] Rachelle Monge MEDICAL CLAIMS REPRESENTATIVE Unavailable Encounter Details Date Type Department Care Team (Late st Contact Info) Description 05/03/2024 Abstract [facility] [place] [facility] 112 [facility] 110 [place] [phone] Slick Villaseñor MD 112 [facility] 110 [place], [place] [id number] Social History Tobacco Use Types Packs/Day Years [...] How often do you attend religious or samaritan serv ices? Never 01/04/2023 Do you belong [...] Recorded Patient Health Questionnaire-2 Score 3 03/29/2024 [facility] [place] of Occupat ional Health - Occupational Stress [...] place to sleep or slept in a longterm (including now)? No 01/04/2023 Education Answer Date [...] [place] [facility] [address] [place] [address] Francisco Houser MD [address] [place] [address] 01/30/2025 8:30 AM EDT Office Visit [facility] [place] [facility] [address] [facility] [address] [place] [phone] Anastacia Da Silva, [facility]-REGISTER REPAIRER [address] [facility] [address] [place] [address] 03/20/2025 8:00 AM EST Office Visit [facility] [place] [facility] [address] [facility] [address] [place] [phone] Gordo Hayden MD [address] [facility] [address] [address] documented as of this encounter Visit Diagnoses Not on filedocumented in this encounter Additional Health Concerns Assessment Noted Time PHQ-9 Depression Total Score: 11 024 9:32 AM EST documented as of this encounter Care Teams Biodiesel Plant Superintendent Relationship Specialty Start Date End Date Slick Villaseñor MD [address] [facility] [address] [place] [address] PCP - General Family Medicine 08/14/22 Anastacia Da Silva, SUPERVISOR SHUTTLE FITTING-[facility] [address] [facility] [address] [place] [address] PCP - [place] [facility] 12/10/22 Belgica Ayers, RN [address] [place] [address] Clinical Advocate Family Medicine 05/18/24 06/29/24 Rachelle Monge LPN [address] [facility] [address] [place] [address] 06/29/24 documented as of this encounter
--- OUTSIDE RECORDS SUMMARY | 2024-12-26 13:19 | XMS_ITS | Encounter Summary ---
Author Organization [facility] Address [address] [place] [address] Care Team Providers Care Molecular Technologist Name Role Phone Slick Villaseñor MD Primary Care Provider [phone] Anastacia Da Silva MAIL HANDLER EQUIPMENT OPERATOR-HIGH SCHOOL SOCIAL STUDIES TUTOR Unavailable Belgica Ayers RN Unavailable [phone] Rachelle Monge UNIT EDUCATOR Unavailable Encounter Details Date Type Department Care Team (Late st Contact Info) Description 02/14/2023 Abstract [facility] 112 [facility] 110 [place] [phone] Slick Villaseñor MD 112 [facility] 110 [place], [place] [id number] Social History Tobacco Use Types Packs/Day Years [...] Never 01/04/2023 How often do you attend episcopal or anabaptist serv ices? Never 01/04/2023 Do you belong to any clubs o r organizations such as episcopal groups, unions, fraternal or athletic groups, or [...] Recorded Patient Health Questionnaire-2 Score 3 01/26/2023 [facility] of Occupat ional Health - Occupational [...] place to sleep or slept in a fdc (including now)? No 01/04/2023 Sex and Gender [...] [facility] [address] [place] [address] Francisco Houser MD [address], [address] [place] [address] 01/30/2025 8:30 AM EDT Office Visit [facility] [address] [facility] 160 [place] [address] Anastacia Da Silva, MAIL HANDLER EQUIPMENT OPERATOR-HIGH SCHOOL SOCIAL STUDIES TUTOR 112 [facility] 160 [place], [place] [address] 03/20/2025 8:00 AM EST Office Visit [facility] [address] [facility] 310 [place] [address] Gordo Hayden MD 7186 [facility] [address] [address] documented as of this encounter Visit Diagnoses Not on filedocumented in this encounter Additional Health Concerns Assessment Noted Time PHQ-9 Depression Total Score: 14 023 2:37 PM EDT documented as of this encounter Care Teams Molecular Technologist Relationship Specialty Start Date End Date Slick Villaseñor MD 112 [facility] 110 [place] [address] PCP - General Family Medicine 08/14/22 Anastacia Da Silva, MAIL HANDLER EQUIPMENT OPERATOR-HIGH SCHOOL SOCIAL STUDIES TUTOR 112 [facility] 160 [place] [address] PCP - [place] [employer] 12/10/22 Belgica Ayers, HAYDE [address] [place] [address] [place] [address] Clinical Advocate Family Medicine 05/18/24 06/29/24 Rachelle Monge LPN 112 [facility] 110 [place] [address] 06/29/24 documented as of this encounter
--- OUTSIDE RECORDS SUMMARY | 2024-12-26 13:19 | XMS_ITS | Encounter Summary ---
Author Organization [facility] Address [address] [place] [address] Care Team Providers Care Checker And Packer Name Role Phone Slick Villaseñor MD Primary Care Provider [phone] Anastacia Da Silva BEHAVIORAL HEALTH THERAPIST-SAUSAGE STRINGER Unavailable Belgica Ayers RN Unavailable Rachelle Monge EMBEDDED SYSTEMS SOFTWARE ENGINEER Unavailable Encounter Details Date Type Department Care Team (Late st Contact Info) Description 12/08/2022 Abstract [facility] [address] [facility] 110 [place] [address] Slick Villaseñor MD 112 [facility] 110 [place], [place] [address] Social History Tobacco Use Types Packs/Day Years Used Date Smoking Tobacco: Never Smokeless Tobacco: Never Alcohol Use Standard Drinks/Week Comments Not Currently 0 (1 standard drink = 0.6 oz pur e alcohol) PHQ-2 Answer Date Recorded Patient Health Questionnaire-2 Score 2 10/11/2022 Sex and Gender Information Value Date Recorded [...] 01/02/2025 9:10 AM EDT Office Visit [facility] [address] [place] [phone] Francisco Houser MD [address], [address] [place] [address] 01/30/2025 8:30 AM EDT Office Visit [facility] 112 [facility] 160 [place] [address] Anastacia Da Silva, BEHAVIORAL HEALTH THERAPIST-SAUSAGE STRINGER [address] [facility] 160 [place] [address] 03/20/2025 8:00 AM EST Office Visit [facility] [place] [facility] [address] [facility] 310 [place] [address] Gordo Hayden MD [address] [phone] documented as of this encounter Visit Diagnoses Not on filedocumented in this encounter Additional Health Concerns Assessment Noted Time PHQ-9 Depression Total Score: 13 023 11:02 AM EDT documented as of this encounter Care Teams Checker And Packer Relationship Specialty Start Date End Date Slick Villaseñor MD 112 [facility] 110 [place] [address] PCP - General Family Medicine 08/14/22 Anastacia Da Silva, BEHAVIORAL HEALTH THERAPIST-SAUSAGE STRINGER 112 [facility] 160 [place] [address] [facility] 12/10/22 Belgica Ayers, HAYDE [address] [place] [address] Clinical Advocate Family Medicine 05/18/24 06/29/24 Rachelle Monge LPN 112 [facility] 110 [place] [address] 06/29/24 documented as of this encounter
--- OUTSIDE RECORDS SUMMARY | 2024-12-26 13:19 | XMS_ITS | Encounter Summary ---
Author Organization [facility] Address [address] [place] [address] Care Team Providers Care Associate Director Name Role Phone Slick Villaseñor MD Primary Care Provider [phone] Anastacia Da Silva INSTALLER APPRENTICE-FOLDING MACHINE FEEDER Unavailable Belgica Ayers RN Unavailable [phone] Rachelle Monge OUTREACH COUNSELOR Unavailable Encounter Details Date Type Department Care Team (Late st Contact Info) Description 02/01/2023 Abstract [facility] 112 [facility] 110 [place] [address] Slick Villaseñor MD 112 [facility] 110 [place], [place] [address] Social History Tobacco Use Types Packs/Day Years [...] Never 01/04/2023 How often do you attend mu-ism or anglican serv ices? Never 01/04/2023 Do you belong to any clubs o r organizations such as mu-ism groups, unions, fraternal or athletic groups, or [...] Recorded Patient Health Questionnaire-2 Score 3 01/26/2023 [facility] of Occupat ional Health - Occupational Stress [...] place to sleep or slept in a nursing home (including now)? No 01/04/2023 Sex and Gender [...] [facility] [address] [place] [address] Francisco Houser MD [address] [place] [address] 01/30/2025 8:30 AM EDT Office Visit [facility] [address] [facility] 160 [place] [address] Anastacia Da Silva, INSTALLER APPRENTICE-FOLDING MACHINE FEEDER 112 [facility] 160 [place], [place] [address] 03/20/2025 8:00 AM EST Office Visit [facility] [place] [facility] [address] [facility] 310 [place] [address] Gordo Hayden MD 3478 [facility] [address] [address] documented as of this encounter Visit Diagnoses Not on filedocumented in this encounter Additional Health Concerns Assessment Noted Time PHQ-9 Depression Total Score: 14 023 2:37 PM EDT documented as of this encounter Care Teams Associate Director Relationship Specialty Start Date End Date Slick Villaseñor MD 112 [facility] 110 [place] [address] PCP - General Family Medicine 08/14/22 Anastacia Da Silva, INSTALLER APPRENTICE-FOLDING MACHINE FEEDER 112 [place] [facility] 160 [place] [address] PCP - [place] [employer] 12/10/22 Belgica Ayers, HAYDE [address] [place] [address] Clinical Advocate Family Medicine 05/18/24 06/29/24 Rachelle Monge LPN 112 [facility] 110 [place] [address] 06/29/24 documented as of this encounter
--- OUTSIDE RECORDS SUMMARY | 2024-12-26 13:19 | XMS_ITS | Encounter Summary ---
Author Organization [facility] Address [address] [place] [address] Care Team Providers Care Anodiser Name Role Phone Slick Villaseñor MD Primary Care Provider [phone] Anastacia Da Silva SWIMMING POOL MAINTENANCE SUPERVISOR-CARGO AND RAMP SERVICES MANAGER Unavailable Belgica Ayers RN Unavailable [phone] Rachelle Monge STORE SPECIALIST Unavailable Encounter Details Date Type Department Care Team (Late st Contact Info) Description 02/08/2023 Abstract [facility] 112 [facility] 110 [place] [address] Slick Villaseñor MD 112 [facility] 110 [place], [place] [address] Social History Tobacco Use Types Packs/Day Years [...] How often do you attend religious or moravian serv ices? Never 01/04/2023 Do you belong [...] Patient Health Questionnaire-2 Score 3 01/26/2023 [facility] of Occupat ional Health - [...] place to sleep or slept in a mcc (including now)? No 01/04/2023 Sex and Gender [...] [facility] [address] [place] [address] Francisco Houser MD [address], [address] [place] [address] 01/30/2025 8:30 AM EDT Office Visit [facility] [address] [facility] 160 [place] [address] Anastacia Da Silva, SWIMMING POOL MAINTENANCE SUPERVISOR-CARGO AND RAMP SERVICES MANAGER 112 [facility] 160 [place], [place] [address] 03/20/2025 8:00 AM EST Office Visit [facility] [place] [facility] [address] [facility] 310 [place] [address] Gordo Hayden MD 2981 [facility] [address] [address] documented as of this encounter Visit Diagnoses Not on filedocumented in this encounter Additional Health Concerns Assessment Noted Time PHQ-9 Depression Total Score: 14 023 2:37 PM EDT documented as of this encounter Care Teams Anodiser Relationship Specialty Start Date End Date Slick Villaseñor MD 112 [facility] 110 [place] [address] PCP - General Family Medicine 08/14/22 Anastacia Da Silva, SWIMMING POOL MAINTENANCE SUPERVISOR-CARGO AND RAMP SERVICES MANAGER 112 [place] [facility] 160 [place] [address] PCP - [place] [employer] 12/10/22 Belgica Ayers, HAYDE [address] [place] [address] Clinical Advocate Family Medicine 05/18/24 06/29/24 Rachelle Monge LPN 112 [facility] 110 [place] [address] 06/29/24 documented as of this encounter
--- OUTSIDE RECORDS SUMMARY | 2024-12-26 13:19 | XMS_ITS | Encounter Summary ---
Author Organization [facility] Address [address] [place] [address] Care Team Providers Care Auto Washer Name Role Phone Unavailable Primary Care Provider Unavailabl e Source Comments In the event this information is protected by the Federal Confidentiality of Alcohol and Drug AbusePatient Records regulations: The Federal rules restrict any use of the information to criminally investigate or prosecute any alcohol or drug abuse patient.[facility] Reason for Referral * Outpatient Procedure (Routine) - Closed Specialty Diagnoses / Procedures Referred By Mark nash Referred To [facility] Diagnoses Acquired buried penis Procedures ECG COMPLETE ECG ROUTINE ECG W/LEAST 12 LDS W/I&R Van Acosta MD [address] [place] [address] Phone: tel: fax: [facility] [address] [address] Referral ID Status Reason Start Date Expiration Date V isits Requested Visits Authorized [id number] Closed Auto-Generate d Referral 09/11/2024 09/10/2025 1 1 * Consult, Test, Treat (Routine) - Authorized Specialty Diagnoses / Procedures Referred By Contac t Referred To Contact Diagnoses Acquired buried penis Procedures OFFICE/OUTPATIENT [facility] 60 MINUTES Van Acosta MD [address] [place] [address] Phone: tel: fax: Referral ID Status Reason Start Date Expiration Date Visits Requested Visits Authorized [id number] Authorized PCP Requested Referral 09/11/2024 09/10/2025 1 1 Encounter Details Date Type Department Care Team ([facility] Contact Info) Description 09/10/2024 Patient Update Urology [address] [address] Van Acosta MD [address] [place], [place] [id number] Social History Tobacco Use Types Packs/Day Years Used Date Smoking Tobacco: Never Smokeless Tobacco: Never Area Deprivation Index Answer Date Jhon rded National Score (1-100), lower number is lower ri sk 78 06/15/2024 State Score (1-10), lower number is lower risk 6 06/15/2024 Data from: https://www.neighborhoodatlas.medicine.[facility]/. Last address used for calculation [address] [place] [address] 06/15/2024 Sex and Gender Information Value Date Recorded Sex Assigned at Not on file Legal Sex Male 2:15 PM EST Gender Identity Not on file Sexual Orientation Not on file documented as of this encounter Plan of Treatment Upcoming Encounters Date Type Department Care Team (Late Contact Info) Description 12/27/2024 1:45 PM EDT Office Visit [facility] [address] [place] [address] Cinthya Velazquez MD [address] [place] [address] Diagnostics, [facility] [address] [address] CAT EVAL ref by Dr. Stout 01/09/2025 3:00 PM EDT Office Visit Plastic Surgery [address] [address] Abhi Galicia MD 9500 [place] [address] 3 week follow up 02/18/2025 10:00 AM EST Office Visit Urology [address] [address] Van Acosta MD [address] [place] [address] 2 month follow up add on ok per dr acosta Scheduled Referrals Name Type Priority Associated Diagnoses Orde r Schedule REFER TO [facility] - PREOPERATIVE OPTIMIZATION Referral Routine Acquired buried penis 1 Occurrences starting 09/11/2024 until 09/10/2025 documented as of this encounter Results * COMPLETE BLOOD COUNT (10/23/2024 12:13 PM EDT) WBC 9.42 3.70 - 11.00 k/uL 10/23/2024 1:38 PM EDT [facility] RBC 5.00 4.20 - 6.00 m/uL 10/23/2024 1:38 PM EDT [facility] Hemoglobin 15.2 13.0 - 17.0 g/dL 10/23/2024 1:38 PM EDT [facility] Hematocrit 43.5 39.0 - 51.0 % 10/23/2024 1:38 PM EDT [facility] MCV 87.0 80.0 - 100.0 fL 10/23/2024 1:38 PM EDT [facility] MCH 30.4 26.0 - 34.0 pg 10/23/2024 1:38 PM EDT [facility] MCHC 34.9 30.5 - 36.0 g/dL 10/23/2024 1:38 PM EDT [facility] RDW-CV 12.9 11.5 - 15.0 % 10/23/2024 1:38 PM EDT [facility] Platelet Count 241 150 - 400 k/uL 10/23/2024 1:38 PM EDT [facility] MPV 10.4 9.0 - 12.7 fL 10/23/2024 1:38 PM EDT [facility] Absolute nRBC <0.01 <0.01 k/uL 10/23/2024 1:38 PM EDT [facility] Blood BLOOD SPECIMEN / Unknown Venipuncture / Unknown 10/23/2024 12:13 PM EDT 10/23/2024 12:14 PM EDT us Van Acosta MD LABORATORY Final Result [facility] [address] [facility] [place] [address], * (ABNORMAL) BASIC METABOLIC PANEL (10/23/2024 12:13 PM EDT) Glucose 148(H) 74 - 99 mg/dL 10/23/2024 5:33 PM EDT [facility] Comment: The [place] Diabetes Association (ADA) provides guidance for cutoff [...] Standards of Medical Care in Diabetes 2016, [place] Diabetes Association. Diabetes Care. 2016.39(Suppl 1). BUN 29(H) 9 - 24 mg/dL 10/23/2024 5:33 PM EDT [facility] Creatinine 2.12(H) 0.73 - 1.22 mg/dL 10/23/2024 5:33 PM EDT [facility] Sodium 139 136 - 144 mmol/L 10/23/2024 5:33 PM EDT [facility] Potassium 3.6(L) 3.7 - 5.1 mmol/L 10/23/2024 5:33 PM EDT [facility] Chloride 103 98 - 107 mmol/L 10/23/2024 5:33 PM EDT [facility] CO2 18(L) 22 - 30 mmol/L 10/23/2024 5:33 PM EDT [facility] Anion Gap 18(H) 8 - 15 mmol/L 10/23/2024 5:33 PM EDT [facility] Calcium, Total 9.5 8.5 - 10.2 mg/dL 10/23/2024 5:33 PM EDT [facility] Estimated Glomerular Filtration Rate 35(L) >=60 mL/min/1. 73m 10/23/2024 5:33 PM EDT [facility] Comment:Estimated Glomerular Filtration Rate (eGFR) is [...] 12:13 PM EDT 10/23/2024 12:14 PM EDT us Van Acosta MD LABORATORY Final Result [facility] [address] [place] [address], * ECG COMPLETE (10/23/2024 12:00 PM EDT) Ventricular Rate 72 BPM [facility] Atrial Rate 72 BPM [facility] P-R Interval 186 ms [facility] QRS Duration 96 ms [facility] QT Interval 410 ms [facility] QTC Calculation (Bazett) 448 ms [facility] Calculated P [place] 67 degrees [facility] Calculated R [place] -3 degrees [facility] Calculated T [place] 24 degrees [facility] 10/23/2024 12:0 0 PM EDT Impressions [facility] - 11/11/2024 8:10 PM EDT NORMAL SINUS RHYTHM NORMAL ECG Confirmed by MD ACOSTA TAMANNA ([id number]) on 11/11/2024 8:10:21 PM Located Within [facility] - 11/11/2024 8:10 PM EDT NAME : STEVEN BAIN PID : [id number] : 1960 Gender : Male Race : ORD : [id number] Procedure Date : Oct 23 2024 12:00:20 Edit Date : Nov 11 2024 20:10:23 Diagnosis: NORMAL SINUS RHYTHM NORMAL ECG Confirmed by MD ACOSTA TAMANNA ([id number]) on 11/11/2024 8:10:21 PM Test Reason : Location : [facility] : [place] [address] Overread By : MD ACOSTA TAMANNA Edited By : MD ACOSTA TAMANNA Referred By : , Acquired by : MICHELLE MORGAN us Van Acosta MD EKG Final Result [facility] [address] [place] [address] documented in this encounter Visit Diagnoses Diagnosis Acquired buried penis- Primary Other specified disorder of penis Acquired buried penis Other specified disorder of penis Nuclear senile cataract of left eye- Primary Nuclear senile cataract of right eye documented in this encounter
--- OUTSIDE RECORDS SUMMARY | 2024-12-26 13:20 | XMS_ITS | Encounter Summary ---
Author Organization [facility] Address [address] [place] [address] Care Team Providers Care Residential Real Estate Assistant Name Role Phone Slick Villaseñor MD Primary Care Provider [phone] Anastacia Da Silva BUSINESS ECONOMIST-FITTING ROOM ATTENDANT Unavailable Belgica Ayers RN Unavailable [phone] Rachelle Monge ASSISTANT FARM OPERATIONS MANAGER Unavailable Encounter Details Date Type Department Care Team (Late st Contact Info) Description 05/04/2024 [facility] [address] [place] [address] [place] [address] Unallocated, Noms Provider, [address] [place], [place] [address] Social History Tobacco Use Types Packs/Day Years [...] How often do you attend restoration or islam serv ices? Never 01/04/2023 Do you belong [...] Recorded Patient Health Questionnaire-2 Score 3 03/29/2024 [facility] of Occupat ional Health - Occupational Stress [...] in a mcfp (including now)? No 01/04/2023 Education Answer Date [...] [facility] [address] [place] [address] Francisco Houser MD [address] [place] [address] 01/30/2025 8:30 AM EDT Office Visit [facility] 112 [facility] 160 [place] [address] Anastacia Da Silva, BUSINESS ECONOMIST-[facility] 112 [facility] 160 [place] [address] 03/20/2025 8:00 AM EST Office Visit [facility] [place] [facility] [address] [facility] 310 [place] [address] Gordo Hayden MD 5776 [facility] [address] [phone] documented as of this encounter Procedures Procedure Name Priority Date/Time Associated Diagnosis Comments XR CHEST 2 VIEWS Routine 05/04/2024 7:56 AM EST documented in this encounter Results * XR chest 2 views (05/04/2024 7:56 AM EST) Anatomical Region Laterality Modality Chest Radiographic Wilda ging us Noms Provider Unallocated IMG XR PROCEDURES F inal Result documented in this encounter Visit Diagnoses Not on filedocumented in this encounter Additional Health Concerns Assessment Noted Time PHQ-9 Depression Total Score: 11 024 9:32 AM EST documented as of this encounter Care Teams Residential Real Estate Assistant Relationship Specialty Start Date End Date Slick Villaseñor MD 112 [facility] 110 [place] [address] PCP - General Family Medicine 08/14/22 Anastacia Da Silva, BUSINESS ECONOMIST-FITTING ROOM ATTENDANT 112 [facility] 160 [place] [address] PCP - [place] [employer] 12/10/22 Belgica Ayers, HAYDE [address] [place] [address] Clinical Advocate Family Medicine 05/18/24 06/29/24 Rachelle Monge LPN [address] [address] 06/29/24 documented as of this encounter
--- OUTSIDE RECORDS SUMMARY | 2024-12-26 13:20 | XMS_ITS | Encounter Summary ---
Author Organization [facility] Address [address] [place] [address] Care Team Providers Care Warp Worker Name Role Phone Slick Villaseñor MD Primary Care Provider [phone] Anastacia Da Silva CANDLEMAKING LABORER-TUBE REBUILDER Unavailable Belgica Ayers RN Unavailable [phone] Rachelle Monge TILE MASON Unavailable Encounter Details Date Type Department Care Team (Late st Contact Info) Description 02/22/2023 Abstract [facility] [address] [facility] 110 [place] [address] Slick Villaseñor MD 112 [facility] 110 [place], [place] [address] Social History Tobacco Use Types Packs/Day Years [...] Never 01/04/2023 How often do you attend orthodoxy or lutheran serv ices? Never 01/04/2023 Do you belong to any clubs o r organizations such as orthodoxy groups, unions, fraternal or athletic groups, or [...] Recorded Patient Health Questionnaire-2 Score 3 01/26/2023 [facility] of Occupat ional Health - [...] [facility] [address] [place] [address] Francisco Houser MD [address] [place] [address] 01/30/2025 8:30 AM EDT Office Visit [facility] [address] [facility] 160 [place] [address] Anastacia Da Silva, CANDLEMAKING LABORER-TUBE REBUILDER 112 [facility] 160 [place], [place] [address] 03/20/2025 8:00 AM EST Office Visit [facility] [place] [facility] [address] [facility] 310 [place] [address] Gordo Hayden MD 8173 [facility] [address] [address] documented as of this encounter Visit Diagnoses Not on filedocumented in this encounter Additional Health Concerns Assessment Noted Time PHQ-9 Depression Total Score: 14 023 2:37 PM EDT documented as of this encounter Care Teams Warp Worker Relationship Specialty Start Date End Date Slick Villaseñor MD 112 [facility] 110 [place] [address] PCP - General Family Medicine 08/14/22 Anastacia Da Silva, CANDLEMAKING LABORER-TUBE REBUILDER 112 [facility] 160 [place] [address] PCP - [place] [employer] 12/10/22 Belgica Ayers, HAYDE [address] [place] [address] Clinical Advocate Family Medicine 05/18/24 06/29/24 Rachelle Monge LPN 112 [facility] 110 [place] [address] 06/29/24 documented as of this encounter
--- OUTSIDE RECORDS SUMMARY | 2024-12-26 13:20 | XMS_ITS | Encounter Summary ---
Author Organization [facility] Address [address] [place] [address] Care Team Providers Care Newsagent Name Role Phone Slick Villaseñor MD Primary Care Provider [phone] Anastacia Da Silva ADMINISTRATIVE ANALYST-ARMATURE TESTER Unavailable Belgica Ayers RN Unavailable [phone] Rachelle Monge SLURRY BLENDER Unavailable Encounter Details Date Type Department Care Team (Late st Contact Info) Description 05/07/2024 Abstract [facility] [place] [facility] 112 [facility] 110 [place] [id number] Slick Villaseñor MD 112 [facility] 110 [place], [place] [id number] Social History Tobacco Use Types Packs/Day Years [...] Never 01/04/2023 How often do you attend sikhism or holiness serv ices? Never 01/04/2023 Do you belong to any clubs o r organizations such as sikhism groups, unions, fraternal or athletic groups, or [...] Recorded Patient Health Questionnaire-2 Score 3 03/29/2024 [facility] of Occupat ional Health - Occupational Stress [...] place to sleep or slept in a skilled nursing (including now)? No 01/04/2023 Education Answer Date [...] [facility] [address] [place] [address] Francisco Houser MD [address] [place] [address] 01/30/2025 8:30 AM EDT Office Visit [facility] [address] [facility] [address] [place] [address] Anastacia Da Silva, [facility] [place]-ARMATURE TESTER [address] [facility] [address] [place] [address] 03/20/2025 8:00 AM EST Office Visit [facility] [address] [facility] [address] [place] [address] Gordo Hayden MD 5391 [facility] [address] [address] documented as of this encounter Visit Diagnoses Not on filedocumented in this encounter Additional Health Concerns Assessment Noted Time PHQ-9 Depression Total Score: 11 024 9:32 AM EST documented as of this encounter Care Teams Newsagent Relationship Specialty Start Date End Date Slick Villaseñor MD [address] [facility] [address] [place] [address] PCP - General Family Medicine 08/14/22 Anastacia Da Silva, ADMINISTRATIVE ANALYST-[facility] [address] [facility] 160 [place] [address] PCP - [facility] 12/10/22 Belgica Ayers, RN [address] [place] [address] Clinical Advocate Family Medicine 05/18/24 06/29/24 Rachelle Monge LPN [address] [facility] [address] [place] [address] 06/29/24 documented as of this encounter
--- OUTSIDE RECORDS SUMMARY | 2024-12-26 13:20 | XMS_ITS | Encounter Summary ---
Author Organization [facility] Address [address] [place] [address] Care Team Providers Care Contract Negotiation Specialist Name Role Phone Slick Villaseñor MD Primary Care Provider [phone] Anastacia Da Silva ENTERTAINMENT DIRECTOR-CERTIFIED PHARMACIST ASSISTANT Unavailable Belgica Ayers RN Unavailable [phone] Rachelle Monge MOLD INJECTOR Unavailable Encounter Details Date Type Department Care Team (Late st Contact Info) Description 05/18/2024 Abstract [facility] [place] [facility] 112 [facility] 110 [place] [phone] Slick Villaseñor MD 112 [facility] 110 [place], [place] [phone] Social History Tobacco Use Types Packs/Day Years [...] How often do you attend druze or confucianism serv ices? Never 01/04/2023 Do you belong [...] Date Recorded Patient Health Questionnaire-2 Score 5 05/17/2024 [facility] of Occupat ional Health - Occupational Stress [...] [facility] [address] [place] [address] Francisco Houser MD [address] [place] [address] 01/30/2025 8:30 AM EDT Office Visit [facility] [address] [facility] [address] [place] [address] Anastacia Da Silva, [facility]-CERTIFIED PHARMACIST ASSISTANT [address] [facility] [address] [place] [address] 03/20/2025 8:00 AM EST Office Visit [facility] [address] [facility] [address] [place] [address] Gordo Hayden MD 5396 [facility] [address] [address] documented as of this encounter Visit Diagnoses Not on filedocumented in this encounter Additional Health Concerns Assessment Noted Time PHQ-9 Depression Total Score: 15 025 12:56 PM EST documented as of this encounter Care Teams Contract Negotiation Specialist Relationship Specialty Start Date End Date Slick Villaseñor MD [address] [facility] [address] [place] [address] PCP - General Family Medicine 08/14/22 Anastacia Da Silva, ENTERTAINMENT DIRECTOR-[facility] [address] [facility] [address] [place] [address] [facility] 12/10/22 Belgica Ayers, RN [address] [place] [address] Clinical Advocate Family Medicine 05/18/24 06/29/24 Rachelle Monge LPN [address] [facility] [address] [place] [address] 06/29/24 documented as of this encounter
--- OUTSIDE RECORDS SUMMARY | 2024-12-26 13:20 | XMS_ITS | Encounter Summary ---
Author Organization [facility] Address [address] [place] [address] Care Team Providers Care Orchestra Musician Name Role Phone Slick Villaseñor MD Primary Care Provider [phone] Anastacia Da Silva MANAGER MEMBERSHIP-MANAGER OF PRODUCTION Unavailable Belgica Ayers RN Unavailable [phone] Rachelle Monge HELICOPTER OFFICER Unavailable Reason for Visit * Reason Comments Med Change Request Encounter Details Date Type Department Care Team (Late st Contact Info) Description 06/12/2024 Refill [facility] 112 [facility] 160 [place] [phone] Anastacia Da Silva, MANAGER MEMBERSHIP-MANAGER OF PRODUCTION 112 [facility] 160 [place] [address] BRITTANY (generalized anxiety disorder) Social History Tobacco [...] Never 01/04/2023 How often do you attend christianity or yazidi serv ices? Never 01/04/2023 Do you belong to any clubs o r organizations such as christianity groups, unions, fraternal or athletic groups, or [...] Recorded Patient Health Questionnaire-2 Score 5 05/17/2024 [facility] of Occupat ional Health - Occupational Stress [...] a nursing home (including now)? No 01/04/2023 Education Answer [...] [facility] [place] [facility] [address] [place] [phone] Francisco Houser MD [address] [place] [address] 01/30/2025 8:30 AM EDT Office Visit [facility] [address] [facility] 160 [place] [address] Anastacia Da Silva, MANAGER MEMBERSHIP-MANAGER OF PRODUCTION [address] [facility] [address] [place] [address] 03/20/2025 8:00 AM EST Office Visit [facility] [address] [facility] 310 [place] [address] Gordo Hayden MD 5355 [facility] [address] [id number] documented as of this encounter Visit Diagnoses Diagnosis BRITTANY (generalized anxiety disorder) Generalized anxiety disorder Type 2 diabetes mellitus with diabetic neuropathic arthropathy, with long-term current use of insulin (HCC) documented in this encounter Additional Health Concerns Assessment Noted Time PHQ-9 Depression Total Score: 15 025 12:56 PM EST documented as of this encounter Care Teams Orchestra Musician Relationship Specialty Start Date End Date Slick Villaseñor MD [address] [facility] 110 [place] [address] PCP - General Family Medicine 08/14/22 Anastacia Da Silva, MANAGER MEMBERSHIP-MANAGER OF PRODUCTION [address] [facility] 160 [place] [address] [facility] - [facility] 12/10/22 Belgica Ayers, RN [address] [place] [address] Clinical Advocate Family Medicine 05/18/24 06/29/24 Rachelle Monge LPN [address] [address] 06/29/24 documented as of this encounter
--- OUTSIDE RECORDS SUMMARY | 2024-12-26 13:20 | XMS_ITS | Encounter Summary ---
Author Organization [facility] Address [address] [place] [address] Care Team Providers Care Floor Tiling Professional Name Role Phone Slick Villaseñor MD Primary Care Provider [phone] Anastacia Da Silva DROP FORGE HAND-CHLORINATION OPERATOR Unavailable Belgica Ayers RN Unavailable [phone] Rachelle Monge FUNDING COORDINATOR Unavailable Encounter Details Date Type Department Care Team (Late st Contact Info) Description 02/17/2023 Abstract [facility] 112 [facility] 160 [place] [address] Anastacia Da Silva, DROP FORGE HANDCHLORINATION OPERATOR 112 [facility] 160 [place] [address] Social History Tobacco Use Types Packs/Day Years [...] Never 01/04/2023 How often do you attend yarsani or bahai serv ices? Never 01/04/2023 Do you belong to any clubs o r organizations such as yarsani groups, unions, fraternal or athletic groups, or [...] Recorded Patient Health Questionnaire-2 Score 3 01/26/2023 [facility] of Occupat ional Health - Occupational Stress [...] [facility] [address] [place] [address] Francisco Houser MD [address] [place] [address] 01/30/2025 8:30 AM EDT [facility] [address] [facility] [address] [place] [address] Anastacia Da Silva, DROP FORGE HAND-CHLORINATION OPERATOR [address] [facility] 160 [place], [place] [address] 03/20/2025 8:00 AM EST Office Visit [facility] [place] [facility] [address] [facility] [address] [place] [address] Gordo Hayden MD 2248 [facility] [address] [address] documented as of this encounter Visit Diagnoses Not on filedocumented in this encounter Additional Health Concerns Assessment Noted Time PHQ-9 Depression Total Score: 14 023 2:37 PM EDT documented as of this encounter Care Teams Floor Tiling Professional Relationship Specialty Start Date End Date Slick Villaseñor MD [address] [facility] 110 [place] [address] PCP - General Family Medicine 08/14/22 Anastacia Da Silva APRN-CHLORINATION OPERATOR [address] [facility] 160 [place] [address] [facility] - [facility] 12/10/22 Belgica Ayers, RN [address] [place] [address] Clinical Advocate Family Medicine 05/18/24 06/29/24 Rachelle Monge LPN [address] [facility] 110 [place] [address] 06/29/24 documented as of this encounter
--- OUTSIDE RECORDS SUMMARY | 2024-12-26 13:43 | XMS_ITS | CCD ---
Author Organization [facility] Care Team Providers Care [place] Stitcher Name Role Phone NAZZAL, MUNIER Unavailable Unavailable NAZZAL, MUNIER Unavailable Unavailable JERTY RaymondEN Unavailable Unavailable JERDARION Unavailable Unavailable [place] Darion ROMERO Primary Care Provider [phone] Darion Randle MD Primary Care Provider STEFANI AUGUSTIN Admitting Unavailable LAKISHA CARRIZALES Referring Unavailable MESERET BALLARD Consulting Unavailable ROSALES SINGH Attending Unavailable DARION RANDLE Primary Care Unavailable CAITY RICHARDSON Consulting Unavailable SHELLEY HUGGINS Consulting Unavailable DARION RANDLE Primary Care Unavailable SHARON BARRY Consulting Unavailable JUANY HESSIN Attending Unavailable SHEYLA VIVEROS Admitting Unavailable ALLEGRA SCHERER Consulting Unavailable CECILIA HERNÁNDEZ Consulting Unavailable RICHARD, ZAINULAVERENICEIN Consulting Unavailable KEVIN MYLES Consulting Unavailable ACE HANSON Consulting Unavailable ADRIENNE MEANS Consulting Unavailable LEXIEBRENT SHIPMAN Consulting Unavailable MARCUS YEPEZ Consulting Unavailable NATALIYA DUNN Consulting Unavailable MARKER, JÚNIOR Referring Unavailable DARION RANDLE Primary Care Unavailable [...] Attending Unavailable MISC, DR GARCIA Admitting Unavailable BAKFANI VIDES Consulting Unavailable JER, DR ORLANDO Primary Care Unavailable BAKHOUFANI Dias Attending Unavailable BAKHOUSFANI Admitting Unavailable MISC, DR GARCIA Consulting Unavailable JER, DR ORLANDO Primary Care Unavailable MISC, DR GARCIA Attending Unavailable MISC, DR GARCIA Admitting Unavailable MARIAMAFRANCISCO BENITES Consulting Unavailable JER, DR ORLANDO Primary Care Unavailable MARIAMA, FRANCISCO Attending Unavailable MARIAMA, AHMAD Admitting Unavailable JER, DR ORLANDO Primary Care Unavailable MISC, DR GARCIA Attending Unavailable MISC, DR GARCIA Admitting Unavailable JER, DR ORLANDO Primary Care Unavailable MISC, DR GARCIA Attending Unavailable MISC, DR GARCIA Admitting Unavailable Bakhous, Aziz Unavailable FANI DILL Referring Unavailable DARION RANDLE Primary Care Unavailable GILLIAN BATISTA Admitting Unavailable GILLIAN BATISTA Attending Unavailable Jer Darion ROMERO Primary Care Provider NON STAFF Primary Care Provider UnavailMD Cody Esparza Emergency Provider [phone] Julio [facility] Ewa Tello Emergency Provider MD Darion Randle Primary Care Provider [phone] MD Brandon Henrymi Admit Provider MD Brandon Henrymi Attending Provider [phone] NON STAFF Primary Care Provider UnavailMD Cody Esparza Emergency Provider [phone] Julio [facility] Ewa Tello Emergency Provider MD Darion Randle Primary Care Provider MD Arash Henry Admit Provider MD Arash Henry Attending Provider MD Saturnino Ballard Jr Emergency Provider Darion Randle MD Primary Care Provider Finn-Nossek REVERBERATORY FURNACE SUPERVISOR-CO PILOT, Lexis M Unavailable DARION RANDLE Primary Care Unavailable MCKEON, SACHIN L Admitting Unavailable MCKEON, SACHIN L Consulting Unavailable MCKEON SACHIN L Attending Unavailable KENROY BAHENA Consulting Unavailable DERIC, AKINFEMI S Consulting Unavailable UDAY, LIVIA Consulting Unavailable DARION RANDLE Primary Care Unavailable KENROY BAHENA Consulting Unavailable MCKEON, SACHIN L Admitting Unavailable MCKEON, SACHIN L Attending Unavailable PARINJA, CHRIS Consulting Unavailable KAMERON, HAI S Consulting Unavailable KATHY PIMENTEL Consulting Unavailable NATALIYA DUNN Attending Unavailable DARION RANDLE Primary Care Unavailable PARINJA, CHRIS Admitting Unavailable KMAERON, HAI S Consulting Unavailable MICK SORTO Consulting Unavailable NON STAFF Primary Care Provider UnavailMD Gary Peacock Attending Provider [phone] Finn-Nossek REVERBERATORY FURNACE SUPERVISOR-CO PILOT, Lexis M Unavailable SONDRA MONTANA Attending Unavailable MEKA RUIZ Attending Unavailable DARION RANDLE Primary Care Physician Lue, Sun M. Admitting Unavailable Lue, Sun M. Attending Unavailable Lue, Sun M. Referring Unavailable Lue, Sun M. Consulting Unavailable Lue, Sun M. Attending Unavailable Lue, Sun M. Referring Unavailable Lue, Sun M. Admitting Unavailable Lue, Sun M. Consulting Unavailable Lue, Sun M. Consulting Unavailable LueSun MJustus Consulting Unavailable Sun Quach Consulting Unavailable MD Sun Quach Consulting Unavailable Lue, Sun MJustus Attending Unavailable Lue, Sun M. Referring Unavailable Lue, Sun M. Admitting Unavailable Lue, Sun MJustus Attending Unavailable MD FANI DILL Referring Unavailable Lue, Sun MJustus Referring Unavailable Lue, Sun MJustus Admitting Unavailable Lue, Sun MJustus Attending Unavailable Lue, Sun MJustus Attending Unavailable LueSun MJustus Attending Unavailable Lue, Sun MJustus Referring Unavailable Lue, Sun MJustus Admitting Unavailable Belgica Ayers RN Unavailable [phone] Unavailable Primary Care Provider Unavailabl e Saleem GARGN, Rachelle Unavailable Unavailable NON STAFF Primary Care Provider Unavailabl e Gary Wiley MD Attending Provider [phone] Sun Quach Attending Unavailable Monge PROFESSIONAL SHOPPER, Rachelle Unavailable Gary Wiley Attending Unavailab Gary Varghese Admitting Unavailab le NON STAFF Primary Care Unavailable MARIAMA, AHMAD F Attending Unavailable FINN-NOSSEK, LEXIS M Attending Unavailab GORDO Garcia Attending Unavailable FINN-NOSSEK, LEXIS M Attending Unavailab le MARIAMA, AHMAD F Attending Unavailable MARIAMA, AHMAD F Referring Unavailable HEMIVANNA DORANTES Attending Unavailable MARIAMA, AHMAD F Attending Unavailable MARIAMA, AHMAD F Referring Unavailable FINN-NOSSEK, LEXIS M Attending Unavailab GORDO Garcia Attending Unavailable FINN-NOSSEK, LEXIS M Attending Unavailab le FINN-NOSSEK, LEXIS M Attending Unavailab le FINN-NOSSEK, LEXIS M Attending Unavailab le FINN-NOSSEK, LEXIS M Attending Unavailab GORDO Garcia Attending Unavailable HEMIVANNA DORANTES Attending Unavailable CYNTHIA BRANTLEYTH Attending Unavailable ANIBAL BRANTLEY Referring Unavailable VAN GILLIS Attending Unavailable BAJIC, VAN Referring Unavailable PADUBIDRI, ABHI Attending Unavailable BAJIC, VAN Admitting Unavailable BAJIC, VAN Attending Unavailable SELF Referring Unavailable BAJIC, VAN Attending Unavailable SELF Referring Unavailable PADUBIDRI, ABHI Attending Unavailable SELF Referring Unavailable BAJIC, VAN Attending Unavailable PADUBIDRI, ABHI Attending Unavailable SELF Referring Unavailable BAJIC, VAN Attending Unavailable Allergies Allergy Classification Reported Allergen(s) Allergy Type Date of Onset Reaction(s) Facility (10 sources) Mirtazapine; Translations: [MIRTAZAPINE] Drug Allergy 5 Anxiety [facility] (2 sources) Mirtazapine Drug Allergy 5 Mental Status Change [facility] Medications Current Medications Medication Drug Class(es) Dates Sig (Normalized) Sig (Original) ##### (5 sources) Start: 04-18-2024 inject 200 doses by subcutaneous injection twice daily ##### 200 EA, 0 Refill(s), USE DIRECTED UNDER THE SKIN TWICE DAILY Start Date: 04/18/24 Status: Ordered acetaminophen 325 mg oral tablet (5 sources) [...] / HYDROcodone bitartrate 5 mg oral tablet (3 sources) Opioid Agonist Start: 05-15-2024 End: 05-18-2024 [place] 325 mg-5 mg oral tablet 1 tab(s), Oral, q6hr for severe pain for 3 day(s), 12 tab(s), Refill(s) 0, [facility]/pharmacy #[id number], 190, cm, 05/03/24 12:23:00 EST, Height/Length Dosing, 143, kg, 05/03/24 12:23:00 EST, Weight Dosing Start Date: 05/15/24 Stop Date: 05/18/24 Status: Ordered Start: 05-31-2022 HYDROcodone-ac etaminophen (NORCO) 5-325 MG per tablet 1 tablet [id number] 200 actuat albuterol 0.09 mg/actuat metered dose inhaler (20 sources) beta2-Adrenergic Agonist Start: 07-19-2022 End: 12-15-2023 take 1 puff(s) by inhalation every four hours for wheezing albuterol HFA 90 mcg/act inhaler Inhale 1 puff every 4 (four) hours if needed for wheezing or shortness of breath. 07/19/2022 12/15/2023 Discontinued (Therapy completed) Start: 06-30-2022 albuterol sulf ate HFA (PROVENTIL;VENTOLIN;PROAIR) 108 (90 Base) MCG/ACT inhaler 2 puff Start: 06-04-2022 albuterol sulf ate HFA (PROVENTIL;VENTOLIN;PROAIR) 108 (90 Base) MCG/ACT inhaler 2 puff Start: 05-29-2022 take 2 puff(s) by inhalation every six hours as needed 2 puff, Inhalation, EVERY 6 HOURS PRN, Starting on Tue06/20/22 at 0654, Until Discontinued, Wheezing, Shortness of [...] hrs Active allopurinol 100 mg oral tablet (20 sources) Xanthine Oxidase Inhibitor Start: 03-31-2023 End: 04-19-2024 take 1 tablet by mouth in the morning allopurinol (Zyloprim) 100 MG tablet Indications: Idiopathic chronic gout without tophus, unspecified site Take 1 tablet (100 mg) by mouth in the morning. 90 tablet 3 04/19/2024 Active Start: 06-05-2022 End: 07-08-2022 take 1 [...] 0 07/08/2022 Discontinued (Stop Taking at Discharge) amantadine hydrochloride 100 mg oral tablet (2 sources) Influenza A M2 Protein Inhibitor Start: 12-19-2024 End: 01-18-2025 take 1 tablet by mouth once daily amantadine (Symmetrel) 100 MG tablet Indications: Tardive dyskinesia , Tremor Take 1 tablet (100 mg) by mouth Daily 30 tablet 3 12/19/2024 01/18/2025 Active amoxicillin 500 mg oral tablet (7 sources) Penicillin-class Antibacterial take 1 tablet by mouth twice daily Amoxicillin 500 mg tablet Take 500 mg by mouth two times a day. Active anticoagulant sodium citrate 4 % injection 1.7 [...] (Lipitor) 20 MG tablet Indications: Pure hyperglyceridemia Take 1 tablet (20 mg) by mouth in the morning. 100 tablet 4 08/31/2022 Active Start: 05-29-2022 End: 07-08-2022 take 1 tablet by mouth once daily atorvastatin (LIPITOR) 20 MG tablet Take 1 tablet by mouth nightly 30 tablet 0 07/08/2022 Active bisacodyl 10 mg rectal suppository (3 sources) [...] on Candace 06/24/22 at 2330, Until Discontinued Start: 06-16-2022 End: 07-08-2022 take 1 tablet by mouth once daily REXULTI 2 MG TABS tablet Take 1 tablet by mouth daily 30 tablet 0 07/08/2022 Active Start: 06-11-2022 End: 06-20-2022 Start: 06-11-2022 take 1 tablet by gertrude once daily brexpiprazole (REXULTI) 1 MG TABS [...] formoterol fumarate 0.0045 mg/actuat metered dose inhaler (20 sources) Corticosteroid, beta2-Adrenergic Agonist Start: 07-08-2022 End: 12-15-2023 take 2 puff(s) by inhalation once daily budesonide-formoterol (Symbicort) 80-4.5 MCG/ACT inhaler Inhale 2 puffs 1 (one) time each day. 07/08/2022 12/15/2023 Discontinued (Therapy completed) Start: 06-30-2022 budesonide-for moterol (SYMBICORT) 80-4.5 MCG/ACT [...] 2 puffs Inhalation Twice a day Active cefepime (MAXIPIME) infusion (1 source) Start: 06-25-2022 End: 07-08-2022 take 2000 mg intravenously three times weekly cefepime (MAXIPIME) infusion Infuse 2,000 mg intravenously three times a week for 6 doses Compound per protocol 12 g 0 06/25/2022 07/08/2022 Discontinued (Stop Taking at Discharge) cephalexin 500 mg oral capsule (5 sources) Cephalosporin Antibacterial Start: 05-15-2024 take 1 capsule by mouth every twelve hours Keflex 500 mg Cap 500 mg = 1 cap(s), Oral, q12hr, postop, # 20 cap(s), Refills(s) 0, Pharmacy: [facility]/pharmacy #[id number], 190, cm, 05/03/24 12:23:00 EST, Height/Length Dosing, 143, kg, 05/03/24 12:23:00 EST, Weight Dosing Start Date: 05/15/24 Status: Ordered Start: 05-31-2022 End: 06-11-2022 cephALEXin (KEFLEX) capsule 500 mg clobetasol propionate 0.0005 mg/mg topical ointment (2 sources) Corticosteroid Start: 11-20-2024 End: 12-04-2024 clobetasol (TEMOVATE) 0.05 % ointment Apply to affected area two times a day for 14 days. Apply using urethral dilator as directed. 30 g 11/20/2024 12/04/2024 Active clonazePAM 0.5 mg oral tablet (5 sources) Benzodiazepine Start: 03-22-2023 take 1 tablet by mouth in the morning clonazePAM (KlonoPIN) 0.5 MG tablet Indications: BRITTANY (generalized anxiety disorder) (CMS/HCC) Take 1 tablet (0.5 mg) by mouth [...] 06/14/2022 07/08/2022 Discontinued (Stop Taking at Discharge) docusate sodium 100 mg oral capsule (10 sources) Start: 11-08-2024 End: 12-05-2024 take 1 capsule by mouth twice daily docusate sodium (COLACE) 100 mg capsule Take 1 capsule by mouth two times a day. 20 capsule 11/08/2024 Active Drug or medicament (substance) (2 sources) Start: 06-25-2022 End: 07-08-2022 Start: 06-11-2022 dulaglutide (20 sources) GLP-1 Receptor Agonist Start: 05-03-2024 Trulici ty 1.5 mg/0.5 mL subcutaneous solution See Instructions, On Mondays, Refills(s) 0 Start Date: 05/03/24 Status: Ordered dulaglutide (MERLINE LICITY SUBCUTANEOUS) Inject subcutaneously one time a week. Mondays Active Trulicity 3 MG/0 .5ML as directed Subcutaneous ONCE A WEEK Active End: 07-08-2022 Dulaglutide (TRULICITY) 0.75 MG/0.5ML SOPN Inject 0.75 mg into the skin once a week 0 07/08/2022 Discontinued (Stop Taking at Discharge) End: 06-20-2022 Dulaglutide (Trulicity) 3 mg/0.5 mL pen injector (2 sources) Start: 09-07-2023 inject 1 mg by subcutaneous injection every week Dulaglutide (Trulicity) 3 mg/0.5 mL pen injector Active MG SUBCUT every week September 07, 2023 12:00am FreeTextSig: as directed Subcutaneous ONCE A WEEK; Note: Source Status: Taking; Provider: Fuentes Ramachandran Dulaglutide (Trulicity) 3 MG/0.5ML solution auto-injector (20 sources) Start: 08-09-2024 End: 12-05-2024 inject 3 mg by subcutaneous injection every week Dulaglutide (Trulicity) 3 MG/0.5ML solution auto-injector Indications: Type 2 diabetes mellitus with diabetic neuropathic arthropathy, with long-term current use of insulin (HCC) Inject 3 mg under the skin 1 (one) time per week 6 mL 1 08/09/2024 12/05/2024 Discontinued Start: 08-09-2024 inject 3 mg by subcu taneous injection every week Dulaglutide (Trulicity) 3 MG/0.5ML solution auto-injector Indications: Type 2 diabetes mellitus with diabetic neuropathic arthropathy, with long-term current use of insulin (HCC) Inject 3 mg under the skin 1 (one) time per week 6 mL 1 08/09/2024 Active Start: 08-09-2024 End: 11-07-2024 inject 3 mg by subcutaneous injection every week Dulaglutide (Trulicity) 3 MG/0.5ML solution auto-injector Indications: Type 2 diabetes mellitus with diabetic neuropathic arthropathy, with long-term current use of insulin (HCC) Inject 3 mg under the skin 1 (one) time per week 6 mL 1 08/09/2024 11/07/2024 Active Start: 08-09-2024 End: 11-07-2024 inject 3 mg by subcutaneous injection every week Dulaglutide (Trulicity) 3 MG/0.5ML solution auto-injector Indications: Type 2 diabetes mellitus with diabetic neuropathic arthropathy, with long-term current use of insulin (CMS/HCC) Inject 3 mg under the skin 1 (one) time per week 6 mL 1 08/09/2024 11/07/2024 Active Start: 05-10-2024 End: 08-09-2024 inject 3 mg by subcutaneous injection every week Dulaglutide (Trulicity) 3 MG/0.5ML solution auto-injector Indications: Type 2 diabetes mellitus with diabetic neuropathic arthropathy, with long-term current use of insulin (CMS/HCC) Inject 3 mg under the skin 1 (one) time per week 6 mL 1 05/10/2024 08/09/2024 Discontinued (Reorder) Start: 05-10-2024 inject 3 mg by subcu taneous injection every week Dulaglutide (Trulicity) 3 MG/0.5ML solution auto-injector Indications: Type 2 diabetes mellitus with diabetic neuropathic arthropathy, with long-term current use of insulin (CMS/HCC) Inject 3 mg under the skin 1 (one) time per week 6 mL 1 05/10/2024 Active Start: 05-10-2024 End: 08-08-2024 inject 3 mg by subcutaneous injection every week Dulaglutide (Trulicity) 3 MG/0.5ML solution auto-injector Indications: Type 2 diabetes mellitus with diabetic neuropathic arthropathy, with long-term current use of insulin (CMS/HCC) Inject 3 mg under the skin 1 (one) time per week 6 mL 1 05/10/2024 08/08/2024 Active dulaglutide (Trulicity) 3 MG/0.5ML solution pen-injector (20 sources) End: 05-10-2024 inject 3 mg by subcutaneous injection every week dulaglutide (Trulicity) 3 MG/0.5ML solution pen-injector Inject 3 mg under the skin 1 (one) time per week. 05/10/2024 Discontinued (Reorder) inject 3 mg by subcu taneous injection every week dulaglutide (Trulicity) 3 MG/0.5ML solution pen-injector Inject 3 mg under the skin 1 (one) time per week. Active inject 3 mg by subcu taneous injection every week dulaglutide (Trulicity) 3 MG/0.5ML solution pen-injector Inject 3 mg under the skin 1 (one) time per week. 0 Active ergocalciferol 1.25 mg oral capsule (7 sources) Provitamin D2 Compound Start: 06-14-2022 End: 07-08-2022 take 1 capsule by mouth every week Ergocalciferol (VITAMIN D) 59605 units CAPS Take 50,000 Units by mouth once a week for 4 doses 4 capsule 0 06/14/2022 07/08/2022 Discontinued (Stop Taking at Discharge) Start: 06-07-2022 vitamin D (ERG OCALCIFEROL) capsule 50,000 Units Start: 05-31-2022 vitamin D (ERG OCALCIFEROL) capsule 50,000 Units End: 06-11-2022 take 1.25 mg by mouth every week vitamin D (ERGOCALCIFEROL) 1.25 MG (76822 UT) CAPS capsule Take 50,000 Units by mouth once a week Tuesday 0 06/11/2022 Discontinued (Stop Taking at Discharge) ferrous sulfate 325 mg oral tablet (20 sources) Start: 03-07-2024 take 1 tablet by mouth in the morning ferrous sulfate 325 (65 Fe) MG tablet Take 1 tablet by mouth in the morning and 1 tablet before bedtime. 04/03/2024 Active take 1 tablet by mouth once addie y ferrous sulfate (IRON) 325 mg (65 mg iron) tablet Take 325 mg by mouth once daily. Active fluticasone propionate 0.05 mg/actuat metered dose nasal [...] each nostril Nasally Once a day Active furosemide 40 mg oral tablet (20 sources) Loop Diuretic Start: 10-01-2022 End: 03-07-2024 take 1 tablet by mouth once daily furosemide (Lasix) 40 MG tablet Take 40 mg by mouth Daily 10/01/2022 Active Start: 06-26-2022 End: 06-26-2022 40 mg, IntraVENous, ONCE, 1 dose, On 06/26/22 at 1330 glucagon (rdna) 1 mg injection (4 sources) Antihypoglycemic Agent Start: 06-20-2022 glucago n (rDNA) injection 1 mg Start: 05-29-2022 glucagon (rDNA ) injection 1 mg Glucose (13 sources) Start: 06-30-2022 dextrose bolus 10% 125 mL Start: 06-30-2022 glucose chewab le tablet 16 g Start: 06-20-2022 dextrose 10 % infusion Start: 06-20-2022 16 g (4 tablet ), Oral, PRN, Starting on 06/20/22 at 0654, Until Discontinued, Low blood sugar [...] 06-29-2022 1,100 Units, IntraCATHeter, PRN, Starting on Candace 06/24/22 at 1611, Until Tue06/29/22 at 1656, Line Care For installation into each catheter limb Arterial 1100 units To be given in Dialysis Start: 06-24-2022 End: 06-24-2022 ONCE PRN, 1 dose, Starting o n Candace 06/24/22 at 1438, Until Candace 06/24/22 at 1438 Start: 06-21-2022 inject 1 dose by sub cutaneous injection three times daily 5,000 Units, SubCUTAneous, EVERY 8 HOURS SCHEDULED (3 times per day), First dose on 06/21/22 at 2200, Until Discontinued Start: 05-29-2022 heparin (porci ne) injection 5,000 Units hydrOXYzine pamoate 50 mg oral capsule (20 sources) Antihistamine Start: 07-07-2023 End: 12-23-2024 take 1 capsule by mouth twice daily as needed for anxiety hydrOXYzine pamoate (Vistaril) 50 MG capsule Indications: BRITTANY (generalized anxiety disorder) Take 1 capsule (50 mg) by mouth 2 (two) times a day as needed for itching or anxiety 180 capsule 09/24/2024 12/23/2024 Active Start: 07-07-2023 End: 12-15-2023 take 1 capsule by mouth every eight hours for anxiety hydrOXYzine pamoate (Vistaril) 50 MG capsule Indications: Panic attack (CMS/HCC) Take 1 capsule (50 mg) by mouth every 8 (eight) hours if needed for itching or anxiety 30 capsule 2 07/07/2023 12/15/2023 Discontinued (Ineffective) hyoscyamine sulfate 0.125 mg sublingual tablet (2 [...] Regular Human (HUMULIN R U-500 KWIKPEN SC) (20 sources) End: 08-09-2024 inject 50-80 [IU] by subcutaneous injection twice daily Insulin Regular Human (HUMULIN R U-500 KWIKPEN SC) Inject under the skin 50-80 units BID 08/09/2024 Discontinued (Reorder) inject 50-80 [IU] by subcutaneous injection twice daily Insulin Regular Human (HUMULIN R U-500 KWIKPEN SC) Inject under the skin. 50-80 units BID Active inject 50-80 [IU] by subcutaneous injection twice daily Insulin Regular Human (HUMULIN R U-500 KWIKPEN SC) Inject under the skin. 50-80 units BID 0 Active insulin regular, human (HUMULIN R U-500, CONC, INSULIN SUBCUTANEOUS) (14 sources) insulin regular, human (HUMULIN R U-500, CONC, INSULIN SUBCUTANEOUS) Inject subcutaneously. Sliding scale 30 to 50 units Active 3 ml insulin, regular, human 500 unt/ml pen injector (20 sources) Insulin Start: End: inject 50 [IU] by subcutaneous injection in the morning, then inject 50 [IU] by subcutaneous injection in the evening, then inject 50 [IU] by subcutaneous injection at bedtime, then inject 50-80 [IU] by subcutaneous injection twice daily insulin regular (HumuLIN R U-500 KWIKPEN) 500 UNIT/ML CONCENTRATED injection Indications: Type 2 diabetes mellitus with diabetic neuropathic arthropathy, with long-term current use of insulin (HCC) Inject 50 Units under the skin in the morning and 50 Units in the evening and 50 Units before bedtime. 50-80 units BID. 27 mL 1 08/09/2024 02/05/2025 Active Start: 04-18-2024 HumuLIN R Kwik Pen (Concentrated) human recombinant 500 units/mL subcutaneous solution 30 mL, 0 Refill(s), INJECT 30 - 40 - 50 UNITS SUBCUTANEOUSLY TWICE A DAY DIRECTED (EXPECT DOSE OF 150 UNITS DAILY), Refills(s) 0, Blood glucose Start Date: 04/18/24 Status: Ordered Start: 09-07-2023 Insulin Regula r Hum U-500 Conc 500 unit/mL (3 mL) insulin pen Active UNIT SUBCUT As Directed September 07, 2023 12:00am FreeTextSig: as directed Subcutaneous sliding scale; Note: Source Status: Taking; Provider: Fuentes Ramachandran Start: 06-11-2022 End: 07-11-2022 insulin regular human [...] 06-16-2022 End: 07-08-2022 KERENDIA 10 MG TABS P-Zwmffgettrjd-Ei gae-B12-B6 (Metanx) 3-90.314-2-35 MG capsule (4 sources) Start: 04-21-2023 End: 07-20-2023 P-Geepbxutmqxf-Xvlni- B12-B6 (Metanx) 3-90.314-2-35 MG capsule Indications: Diabetic neuropathic arthropathy (CMS/HCC) , Polyneuropathy due to type 2 diabetes mellitus (CMS/HCC) , Intractable chronic migraine with aura with status migrainosus , Polyneuropathy Take 1 capsule by mouth in the morning. 90 capsule 3 04/21/2023 07/20/2023 Active LORazepam 0.5 mg oral tablet (20 sources) Benzodiazepine Start: 10-16-2024 End: 11-15-2024 take 1 tablet by mouth once daily as needed for anxiety LORazepam (Ativan) 0.5 MG tablet Indications: Panic attack Take 1 tablet (0.5 mg) by mouth Daily as needed for anxiety 30 tablet 10/16/2024 Active Start: 05-17-2024 End: 10-16-2024 take 0.5 tablet by mouth every eight hours for anxiety LORazepam (Ativan) 1 MG tablet Indications: Panic attack Take 0.5 tablets (0.5 mg) by mouth every 8 (eight) hours if needed for anxiety 15 tablet 05/17/2024 10/16/2024 Discontinued Start: 04-30-2024 End: 05-30-2024 LORazepam 1 mg Tab 1 mg = 1 tab(s), Refills(s) 0 Start Date: 05/30/24 Status: Ordered Start: 02-08-2023 End: 09-07-2023 take 1 tablet by mouth three times daily as needed for anxiety Lorazepam 1 mg tablet Discontinued 1 MG PO Three times daily as needed for Anxiety February 08, 2023 12:00am September 07, 2023 9:43am Start: 01-23-2023 take 1 tablet by gertrude th every twelve hours Lorazepam (Ativan) 2 mg tablet Active 2 MG PO Q12H 10 January 23, 2023 12:00am magnesium oxide 400 mg oral tablet (20 sources) Start: 11-03-2023 End: 06-09-2025 take 1 tablet by mouth once daily magnesium oxide (Mag-Ox) 400 (240 Mg) MG tablet Indications: Intention tremor Take 1 tablet (400 mg) by mouth Daily 90 tablet 3 06/14/2024 06/09/2025 Active Start: 11-02-2023 magnesium oxid e 400 mg, Oral, Daily, Oral, 0 Refill(s), Refills(s) 0, Prophylaxis Start Date: 11/02/23 Status: Ordered Start: 11-02-2023 magnesium oxid e Oral, 0 Refill(s), Refills(s) 0 Start Date: 11/02/23 Status: Ordered metoprolol tartrate 25 mg oral tablet (7 [...] Discontinued midodrine hydrochloride 2.5 mg oral tablet (20 sources) alpha-Adrenergic Agonist Start: 11-19-2024 End: 02-17-2025 take 1 tablet by mouth once daily in the morning midodrine (Proamatine) 2.5 MG tablet Indications: Chronic kidney disease, stage 4 (severe) ([facility]) , Orthostatic hypotension Take 1 tablet (2.5 mg) by mouth Daily Daily in the morning, may take second dose if dizzy and BP is low 90 tablet 11/19/2024 02/17/2025 Active Start: 04-18-2024 midodrine 2.5 mg oral tablet 2.5 mg = 1 tab(s), Oral, Daily, 90 EA, 0 Refill(s), TAKE 1 TABLET BY MOUTH 3 TIMES DAILY WITH MEALS hypotension, Refills(s) 0, Other (see comment) Start Date: 04/18/24 Status: Ordered Start: 09-07-2023 End: 07-10-2024 take 1 tablet by mouth once daily Midodrine 2.5 mg tablet Active 2.5 MG PO Daily July 10, 2024 9:31am Start: 02-08-2023 End: 09-07-2023 take 2 tablets by mouth once daily Midodrine 2.5 mg tablet Discontinued 5 MG PO Q1D@February 08, 2023 12:00am September 07, 2023 9:45am Start: 02-08-2023 End: 09-07-2023 take 5 mg by mouth once daily Midodrine Discontinued 5 MG PO Q1D@07 February 08, 2023 12:00am September 07, 2023 9:45am Start: 01-23-2023 take 5 mg by mouth [...] 110 90 tablet 0 07/19/2022 Active mirtazapine 15 mg oral tablet (20 sources) Start: 08-30-2024 End: 09-29-2024 take 1 tablet by mouth at bedtime mirtazapine (Remeron) 15 MG tablet Indications: Insomnia, unspecified type Take 1 tablet (15 mg) by mouth at bedtime 30 tablet 1 08/30/2024 09/29/2024 Active Start: 02-13-2023 End: 04-18-2024 take 1 tablet by mouth once daily at bedtime Mirtazapine 45 mg tablet Discontinued 45 MG PO Daily at bedtime February 13, 2023 12:00am September 07, 2023 9:43am Start: 01-23-2023 End: 02-13-2023 take 1 tablet by mouth at bedtime Mirtazapine 30 mg tablet Discontinued 30 MG PO Bedtime February 08, 2023 12:00am February 13, 2023 11:29am Start: 05-29-2022 End: 07-08-2022 take 1 tablet by mouth once daily mirtazapine (REMERON) 30 MG tablet Take 1 tablet by mouth nightly 30 tablet 0 07/08/2022 Active nitroglycerin 0.4 mg sublingual tablet (4 sources) Nitrate Vasodilator nitroglyceri n (Nitrostat) 0.4 [address] tablet nitroglycerin 0.[address] 1 tablet as needed by sublingual route. Place 1 tablet under the tongue for chest pain as needed, can repeat every 5 minutes x3 and then call 911 0 Active nystatin 100 unt/mg topical powder (8 sources) Polyene Antifungal Start: 10-30-2024 Klayesta [id number] UNIT/GM powder APPLY TO AFFECTED AREA 4 TIMES A DAY 10/30/2024 Active Start: 07-06-2024 End: 08-05-2024 nystatin (NYSTOP) powder Ind ications: Jock itch Apply 1 application to affected area four times daily. 60 g 2 07/06/2024 08/05/2024 Active omeprazole 40 mg delayed release oral capsule (20 sources) Proton Pump Inhibitor Start: 03-21-2024 End: 04-19-2024 take 1 capsule by mouth in the morning omeprazole (PriLOSEC) [address] capsule Indications: Duodenal ulcer Take 1 capsule (40 mg) by mouth in the morning. Do not crush or chew.. 90 capsule 3 04/19/2024 Active Start: 01-23-2023 End: 02-08-2023 take 1 capsule by mouth before mealtime omeprazole (PriLOSEC) [address] capsule Indications: Duodenal ulcer Take 1 capsule (40 mg) by mouth in the morning. Take before meals. 100 capsule 3 03/15/2023 Active Start: 07-08-2022 End: 07-08-2022 take 1 capsule [...] Until Discontinued Do not crush or break. PARoxetine hydrochloride 20 mg oral tablet (20 sources) Serotonin Reuptake Inhibitor Start: 06-28-2024 End: 08-27-2024 take 1 tablet by mouth once daily in the morning PARoxetine (Paxil) 40 MG tablet Indications: BRITTANY (generalized anxiety disorder) (CMS/HCC) TAKE 1 TABLET BY MOUTH EVERY DAY IN THE MORNING 90 tablet 07/02/2024 Active Start: 05-17-2024 End: 10-29-2024 take 1 tablet by mouth in the morning PARoxetine (Paxil) 20 MG tablet Indications: BRITTANY (generalized anxiety disorder) Take 1 tablet (20 mg) by mouth in the morning. 30 tablet 2 08/30/2024 Active polyethylene glycol 3350 63251 mg powder for oral solution (13 sources) Osmotic Laxative Start: 06-05-2022 End: 12-15-2023 polyethylene glycol, PEG, 3350 (Glycolax) 17 GM/SCOOP powder Take 17 g by mouth. Daily as needed 07/08/2022 12/15/2023 Discontinued (Therapy completed) potassium bicarbonate 20 meq effervescent oral tablet (1 source) Start: 06-01-2022 potassium bicarb-citric acid (EFFER-K) effervescent tablet 20 mEq potassium chloride 20 meq extended release oral tablet (20 sources) Start: 05-03-2023 End: 03-07-2024 take 1 tablet by mouth once daily potassium chloride CR (K-Tab) 20 MEQ ER tablet Take 20 mEq by mouth Daily 05/04/2023 Active take 1 tablet by mouth once addie y potassium chloride ER (KLOR-CON) 20 mEq tablet Take 20 mEq by mouth once daily. Active primidone 250 mg oral tablet (6 [...] dose on 06/20/22 at 0900, Until Discontinued QUEtiapine 200 mg oral tablet (20 sources) Atypical Antipsychotic Start: 08-30-2024 End: 01-04-2025 take 1 tablet by mouth at bedtime QUEtiapine (SEROquel) 200 MG tablet Indications: Severe recurrent major depression without psychotic features (HCC) Take 1 tablet (200 mg) by mouth at bedtime 30 tablet 2 12/05/2024 01/04/2025 Active Start: 07-10-2024 take 1 tablet by gertrude once daily as needed Quetiapine (Seroquel) 25 mg tablet Active 25 MG PO Daily as needed July 10, 2024 9:32am Start: 07-10-2024 take 2 tablets by mo [facility] once daily at bedtime Quetiapine (Seroquel) 100 mg tablet Active 200 MG PO Daily at bedtime July 10, 2024 9:32am Start: 03-29-2024 End: 07-28-2024 take 1 tablet by mouth at bedtime QUEtiapine (SEROquel) 200 MG tablet Indications: Severe recurrent major depression without psychotic features (HCC) (CMS/HCC) Take 1 tablet (200 mg) by mouth at bedtime 30 tablet 2 06/28/2024 Active Start: 03-07-2024 End: 07-10-2024 Quetiapine (Seroquel) 100 mg tablet Discontinued 150 MG PO Daily at bedtime March 07, 2024 10:00am July 10, 2024 9:34am Start: 02-09-2024 End: 04-19-2024 take 1.5 tablets by mouth at bedtime QUEtiapine (SEROquel) 100 MG tablet Indications: Severe recurrent major depression without psychotic features (HCC) (CMS/HCC) Take 1.5 tablets (150 mg) by mouth at bedtime 45 tablet 2 02/09/2024 04/19/2024 Discontinued (Dose adjustment) Start: 11-03-2023 End: 12-15-2023 take 1 tablet by mouth at bedtime QUEtiapine (SEROquel) 200 MG tablet Indications: Major depressive disorder, recurrent, moderate (HCC) (CMS/HCC) Take 1 tablet (200 mg) by mouth at bedtime 30 tablet 2 11/03/2023 12/15/2023 Discontinued Start: 09-07-2023 End: 07-10-2024 take 1 tablet by mouth twice daily as needed for anxiety QUEtiapine (SEROquel) 25 MG tablet Indications: BRITTANY (generalized anxiety disorder) Take 1 tablet (25 mg) by mouth 2 (two) times a day as needed (Anxiety) 60 tablet 2 03/29/2024 Active Start: 09-07-2023 End: 03-07-2024 take 1 tablet by mouth at bedtime QUEtiapine (SEROquel) 100 MG tablet Indications: Severe recurrent major depression without psychotic features (HCC) (CMS/HCC) Take 1 tablet (100 mg) by mouth at bedtime 30 tablet 2 12/15/2023 02/09/2024 Discontinued (Reorder) Start: 02-08-2023 End: 02-13-2023 take 1 tablet by mouth at bedtime Quetiapine 100 mg tablet Discontinued 100 MG PO Bedtime February 08, 2023 12:00am February 13, 2023 11:29am sennosides, detention 8.6 mg oral tablet (4 sources) Start: 06-30-2022 senna (SENOKOT ) tablet 17.2 mg Start: 06-21-2022 senna (SENOKOT ) tablet 8.6 mg Start: 06-04-2022 senna (SENOKOT ) tablet 17.2 mg sertraline 100 mg oral tablet (20 sources) Serotonin Reuptake Inhibitor Start: 04-18-2024 take 1 tablet by mouth twice daily sertraline 100 mg Tab 100 mg = 1 tab(s), Oral, BID, Refills(s) 0, Depression Start Date: 04/18/24 Status: Ordered Start: 04-18-2024 sertraline 100 mg Tab 135 EA, 0 Refill(s), TAKE 1.5 TABLETS BY MOUTH DAILY, Refills(s) 0 Start Date: 04/18/24 Status: Ordered Start: 03-29-2024 End: 05-17-2024 take 2 tablets by mouth once daily sertraline (Zoloft) 100 MG tablet Indications: BRITTANY (generalized anxiety disorder) (CMS/HCC) Take 2 tablets (200 mg) by mouth Daily 60 tablet 2 03/29/2024 05/17/2024 Discontinued Start: 09-15-2023 End: 04-19-2024 take 1.5 tablets by mouth once daily sertraline (Zoloft) 100 MG tablet Indications: Major depressive disorder, single episode, moderate (HCC) (CMS/HCC) Take 1.5 tablets (150 mg) by mouth Daily 45 tablet 2 02/09/2024 04/19/2024 Discontinued Start: 09-07-2023 End: 07-10-2024 Sertraline (Zoloft) 100 mg t ablet Discontinued 150 MG PO Daily September 07, 2023 12:00am July 10, 2024 9:32am Start: 04-19-2023 End: 06-16-2023 take 1.5 tablets by mouth in the morning sertraline (Zoloft) 100 MG tablet Indications: Major depressive disorder, single episode, moderate (HCC) (CMS/HCC) Take 1.5 tablets (150 mg) by mouth in the morning. 45 tablet 2 05/17/2023 06/16/2023 Active simethicone/sod bicarb/tta (SODIUM BICARB-TARTARIC ACID ORAL) (14 sources) take 1300 mg by mouth once daily simethicone/sod bicarb/tta (SODIUM BICARB-TARTARIC ACID ORAL) Take 1,300 mg by mouth once daily. Active sodium bicarbonate 650 mg oral tablet (20 sources) Start: 04-13-2024 take 2 tablets by mouth twice daily Sodium Bicarbonate 650 mg tablet Active 0 .ROUTE .COMPLEX 360 April 13, 2024 10:25am TAKE 2 TABLETS BY MOUTH TWICE A DAY Start: 03-07-2024 End: 04-13-2024 take 2 tablets by mouth twice daily Sodium Bicarbonate 650 mg tablet Discontinued 1300 MG PO Twice daily 180 March 07, 2024 10:08am April 13, 2024 10:25am Start: 01-24-2024 End: 03-07-2024 take 1 tablet by mouth twice daily Sodium Bicarbonate 650 mg tablet Discontinued 0 .ROUTE .COMPLEX 180 January 24, 2024 3:47pm March 07, 2024 10:15am TAKE 1 TABLET BY MOUTH TWICE A DAY Start: 09-07-2023 End: 01-24-2024 take 1 tablet by mouth twice daily Sodium Bicarbonate 650 mg tablet Discontinued 650 MG PO Twice daily 60 September 07, 2023 12:00am January 24, 2024 3:49pm tadalafil 5 mg oral tablet (17 sources) Phosphodiesterase 5 Inhibitor Start: 05-04-2024 End: 04-29-2025 tadalafil 5 mg oral tablet 5 mg = 1 tab(s), Oral, q72hr, X 30 day(s), # 10 tab(s), Refills(s) 11, Pharmacy: [facility]/pharmacy #[id number], 190, cm, 05/03/24 12:23:00 EST, Height/Length Dosing, 143, kg, 05/03/24 12:23:00 EST, Weight Dosing Start Date: 05/04/24 Stop Date: 04/29/25 Status: Ordered Start: 04-18-2024 End: 06-28-2024 take 1 tablet by mouth once daily tadalafil (Cialis) 5 MG tablet Take 5 mg by mouth Daily 04/18/2024 06/28/2024 Discontinued (Ineffective) tamsulosin hydrochloride 0.4 mg oral capsule (10 sources) alpha-Adrenergic Sapna Start: 07-08-2022 take 1 capsule by mouth once daily tamsulosin (FLOMAX) 0.4 MG capsule Take 1 capsule by mouth daily 30 capsule 0 07/08/2022 Active Start: 05-28-2022 End: 07-08-2022 tamsulosin (FLOMAX) capsule 0.4 mg thiamine 100 mg oral tablet (20 sources) Start: 04-19-2023 End: 06-09-2025 take 1 tablet by mouth once daily thiamine (Vitamin B-1) 100 MG tablet Indications: Tardive dyskinesia Take 1 tablet (100 mg) by mouth Daily 90 tablet 3 06/14/2024 06/09/2025 Active Start: 04-18-2023 triamcinolone acetonide 1 mg/ml topical cream (12 sources) Corticosteroid Start: 04-18-2024 End: 05-17-2024 triamcinolone (Kenalog) 0.1 % cream Apply 1 application topically in the morning and 1 application before bedtime. 04/18/2024 05/17/2024 Active Start: 04-18-2024 End: 05-16-2024 triamcinolone Top 0.1% Crm 1 5 gram 1 maikol, Topical, BID for 2 week(s), 30 gm, Refill(s) 1, apply a thin film to penile head skin twice a day for 2 weeks, [facility]/pharmacy #[id number], 184, cm, 04/18/24 8:42:00 EST, Height/Length Dosing, 160, kg, 04/18/24 8:42:00 EST, Weight Dosing Start Date: 04/18/24 Stop Date: 05/16/24 Status: Ordered Valbenazine (2 sources) Start: 09-07-2023 take 1 capsule by mouth once daily Valbenazine (Ingrezza) 60 mg capsule Active 60 MG PO Daily September 07, 2023 12:00am valbenazine (INGREZZA) 60 mg capsule (14 sources) take 1 capsule by mouth once daily valbenazine (INGREZZA) 60 mg capsule Take 60 mg by mouth once daily. Active Valbenazine Tosylate (Ingrezza) 60 MG capsule (20 sources) Start: 12-19-2024 End: 03-19-2025 take 1 capsule by mouth once daily Valbenazine Tosylate (Ingrezza) 60 MG capsule Indications: Tardive dyskinesia Take 60 mg by mouth Daily 90 capsule 3 12/19/2024 03/19/2025 Active Start: 06-14-2024 End: 12-19-2024 take 1 capsule by mouth once daily Valbenazine Tosylate (Ingrezza) 60 MG capsule Indications: Tardive dyskinesia Take 60 mg by mouth Daily 90 capsule 3 06/14/2024 12/19/2024 Discontinued (Reorder) Start: 06-14-2024 take 1 capsule by mo uth once daily Valbenazine Tosylate (Ingrezza) 60 MG capsule Indications: Tardive dyskinesia Take 60 mg by mouth Daily 90 capsule 3 06/14/2024 Active Start: 06-14-2024 End: 09-12-2024 take 1 capsule by mouth once daily Valbenazine Tosylate (Ingrezza) 60 MG capsule Indications: Tardive dyskinesia Take 60 mg by mouth Daily 90 capsule 3 06/14/2024 09/12/2024 Active Start: 02-23-2024 take 1 capsule by mo uth once daily Valbenazine Tosylate (Ingrezza) 60 MG capsule Indications: Tardive dyskinesia Take 60 mg by mouth Daily 90 capsule 3 02/23/2024 Active Start: 02-23-2024 End: 05-23-2024 take 1 capsule by mouth once daily Valbenazine Tosylate (Ingrezza) 60 MG capsule Indications: Tardive dyskinesia Take 60 mg by mouth Daily 90 capsule 3 02/23/2024 05/23/2024 Active Start: 11-03-2023 End: 02-23-2024 take 1 capsule by mouth once daily Valbenazine Tosylate (Ingrezza) 60 MG capsule Indications: Tardive dyskinesia Take 60 mg by mouth Daily 90 capsule 3 11/03/2023 02/23/2024 Discontinued (Reorder) Start: 11-03-2023 take 1 capsule by mo uth once daily Valbenazine Tosylate (Ingrezza) 60 MG capsule Indications: Tardive dyskinesia Take 60 mg by mouth Daily 90 capsule 3 11/03/2023 Active Start: 11-03-2023 End: 02-01-2024 take 1 capsule by mouth once daily Valbenazine Tosylate (Ingrezza) 60 MG capsule Indications: Tardive dyskinesia Take 60 mg by mouth Daily 90 capsule 3 11/03/2023 02/01/2024 Active (1 source) Start: 06-16-2022 (10 sources) Start: [...] mL/hr, Administer over 180 Minutes, ONCE, On 06/20/22 at 0930, For 1 dose Start: 06-20-2022 End: 06-22-2022 2,250 mg, IntraVENous, EVERY 8 HOURS, 21 doses, First dose on 06/20/22 at 0900, Last dose on 06/27/22 at 0500 Antimicrobial Indications: Urinary Tract [...] End: 06-11-2022 amLODIPine (NORVASC) tablet 10 mg B cmplx 4/vit D3/C/folic/zinc (VITAL-D RX ORAL) (6 sources) End: 10-23-2024 take 2000 mg by mouth once daily B cmplx 4/vit D3/C/folic/zinc (VITAL-D RX ORAL) Take 2,000 mg by mouth once daily. 10/23/2024 Discontinued take 2000 mg by mouth once daily B cmplx 4/vit D3/C/folic/zinc (VITAL-D RX ORAL) Take 2,000 mg by mouth once daily. Active benztropine mesylate 1 mg oral tablet (10 sources) Anticholinergic, Antihistamine Start: 02-08-2023 End: 03-21-2024 take 1 tablet by mouth twice daily Benztropine 1 mg tablet Discontinued 1 MG PO Twice daily February 14, 2023 9:46am September 07, 2023 9:44am biotin 10 mg oral tablet (14 sources) End: 04-19-2024 take 1 tablet by mouth once daily biotin 10 MG tablet Take 1 tablet by mouth Daily 04/19/2024 Discontinued busPIRone hydrochloride 15 mg oral tablet (3 sources) Start: 02-13-2023 End: 09-07-2023 take 1 tablet by mouth twice daily Buspirone 15 mg Tablet Discontinued 15 MG PO Twice daily 60 February 13, 2023 12:00am September 07, 2023 9:44am calcium chloride 0.0014 meq/ml / potassium chloride 0.004 meq/ml / sodium chloride 0.103 meq/ml / sodium lactate 0.028 meq/ml injectable solution (2 sources) Start: 06-20-2022 End: 06-20-2022 1,300 mL, IntraVENous, at 644.6 mL/hr, Administer over 121 Minutes, ONCE, On Tue06/20/22 at 0615, For 1 dose cefepime (MAXIPIME) 2,000 mg in sodium chloride 0.9 % 50 mL IVPB (mini-bag) (1 source) Start: 07-01-2022 End: 07-07-2022 cefepime (MAXIPIME) 2,000 mg in sodium chloride 0.9 % 50 mL IVPB (mini-bag) 0.4 ml enoxaparin sodium 100 mg/ml prefilled syringe (1 source) Low Molecular Weight Heparin Start: 06-20-2022 End: 06-21-2022 inject 40 mg by subcutaneous injection twice daily 40 mg, SubCUTAneous, 2 TIMES DAILY, First dose on Tue06/20/22 at 0900, Until Discontinued Indication of Use: Prophylaxis-DVT/ PE Administer by deep subCUTAneous injection with pt lying down. Alternate injection sites on abdominal wall. Do not rub site after injection. Check with provider prior to any invasive procedure. fluconazole 100 mg oral tablet (3 sources) Azole Antifungal Start: 02-22-2023 End: 09-07-2023 take 1 tablet by mouth once daily Fluconazole (Diflucan) 100 mg tablet Discontinued 100 MG PO Daily 7 February 22, 2023 1:00am September 07, 2023 9:43am folic acid 1 mg oral tablet (20 sources) Start: 12-21-2022 End: 09-07-2023 take 1 tablet by mouth once daily Folic Acid 1 mg tablet Discontinued 1 MG PO Daily February 08, 2023 12:00am August 11, 2023 5:03pm gabapentin 300 mg oral capsule (20 sources) Anti-epileptic Agent Start: 02-08-2023 End: 09-07-2023 take 1 capsule by mouth once daily Gabapentin 300 mg capsule Discontinued 300 MG PO Daily February 08, 2023 12:00am September 07, 2023 9:43am Start: 01-23-2023 End: 01-23-2023 Gabapentin 300 mg capsule Discontinued MG January 23, 2023 12:00am January 23, 2023 4:59pm Start: 01-23-2023 End: 01-23-2023 Gabapentin Discontinued MG O ct2022 12:00am January 23, 2023 4:59pm Start: 01-23-2023 take 300 mg by mouth [...] dose on Tue06/25/22 at 2100, Until Discontinued lamoTRIgine 200 mg oral tablet (20 sources) Mood Stabilizer, Anti-epileptic Agent Start: 01-23-2023 End: 09-07-2023 take 1 tablet by mouth once daily Lamotrigine 200 mg tablet Discontinued 200 MG PO Daily February 08, 2023 12:00am September 07, 2023 9:43am Start: 07-08-2022 End: 07-08-2022 take 1 tablet by mouth once daily lamoTRIgine (LAMICTAL) 200 MG tablet Take 1 tablet by mouth daily 30 tablet 0 07/08/2022 Active Start: 06-20-2022 lamoTRIgine (L AMICTAL) tablet 200 mg Start: 05-29-2022 lamoTRIgine (L AMICTAL) tablet 200 mg 10 ml lidocaine hydrochloride 10 mg/ml injection [...] 2000 mg in 50 mL IVPB premix MEDICATION, NON-DATABASE (6 sources) End: 10-23-2024 take 20 mg by mouth once daily MEDICATION, NON-DATABASE Take 20 mg by mouth once daily. Paxel 10/23/2024 Discontinued take 20 mg by mouth once daily M EDICATION, NON-DATABASE Take 20 mg by mouth once daily. Paxel Active nitrofurantoin, macrocrystals 25 mg / nitrofurantoin, monohydrate 75 mg oral capsule (3 sources) Nitrofuran Antibacterial Start: 02-22-2023 End: 09-07-2023 take 1 capsule by mouth every twelve hours at mealtime Nitrofurantoin Monohyd/M-Cryst (Macrobid) 100 mg capsule Discontinued 100 MG PO Q12H 10 5 February 22, 2023 1:00am September 07, 2023 9:43am administer with a meal/food; swallow whole; do not open, crush, dissolve , or chew piperacillin-tazobac thornton (ZOSYN) 3,375 mg in sodium chloride 0.9 % 50 mL IVPB (mini-bag) (1 source) Start: 05-28-2022 End: 05-31-2022 3,375 mg, IntraVENous, EVERY 8 HOURS, 21 doses, First dose on Tue05/28/22 at 1645, Last dose on Tue06/04/22 at 0845 Antimicrobial Indications: Urinary Tract Infection UTI duration of therapy: 7 days 72 hr scopolamine 0.0139 mg/hr transdermal system [...] End: 06-03-2022 spironolactone (ALDACTONE) tablet 25 mg traZODone hydrochloride 100 mg oral tablet (3 sources) Serotonin Reuptake Inhibitor Start: 02-13-2023 End: 09-07-2023 take 1 tablet by mouth once daily at bedtime as needed Trazodone 100 mg Tablet Discontinued 100 MG PO Daily at bedtime as needed for Insomnia February 13, 2023 12:00am September 07, 2023 9:42am valbenazine 60 MG Oral Capsule [Ingrezza] (5 sources) Start: 04-18-2024 Ingrezza 60 mg oral capsule 60 mg = 1 cap(s), Oral, Daily, 30 cap(s), 0 Refill(s) Tardive dyskinesia, Refills(s) 0, Other (see comment) Start Date: 04/18/24 Status: Ordered Start: 04-18-2024 Ingrezza 60 mg oral capsule 30 cap(s), 0 Refill(s), Refills(s) 0 Start Date: 04/18/24 Status: Ordered 24 hr venlafaxine 150 mg extended release oral capsule (20 sources) Serotonin and Norepinephrine Reuptake Inhibitor Start: 02-08-2023 End: 09-07-2023 take 1 capsule by mouth once daily Venlafaxine 150 mg capsule,extended release 24hr Discontinued 150 MG PO Daily February 08, 2023 12:00am September 07, 2023 9:42am Start: 01-23-2023 End: 09-07-2023 Venlafaxine 75 mg capsule,ex tended release 24hr Discontinued 75 MG PO Daily January 23, 2023 12:00am September 07, 2023 9:42am Take with 150 to make 225mg Start: 01-23-2023 take 225 mg by mouth once daily Venlafaxine Active 225 MG PO Daily January [...] mouth once daily 225 mg, Oral, DAILY, First dose on 05/29/22 at 1000, Until Discontinued Do not crush or break. take 1 capsule by mo [facility] every twenty-four hours Venlafaxine HCl ER 75 MG 1 capsule with food Orally Once a day Active End: 06-11-2022 take 3 capsules by mouth once daily venlafaxine (EFFEXOR XR) 75 MG extended release capsule Take 225 mg by mouth daily 0 06/11/2022 Discontinued (Stop Taking at Discharge) Problems Active Problems Problem Classification Problem Date Documented Date Episodic/Chronic Anxiety disorders (20 sources) Generalized anxiety disorder; Translations: [Generalized anxiety disorder] Onset: 3 Resolved: 3 Chronic Aortic; peripheral; and visceral artery aneurysms (13 sources) Ascending aorta dilatation; Translations: [Thoracic aortic ectasia] Onset: 5 10-23-2024 Chronic Bacterial infection; unspecified site (1 source) Other staphylococcus as the cause of diseases classified elsewhere; Translations: [OTH STAPH CAUSE OF DZ CLASS ELSW] Onset: 3 Episodic Cardiac and circulatory congenital anomalies (20 sources) Myocardial bridge of coronary artery; 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] Onset: 2 12-05-2022 Chronic Chronic kidney disease (20 sources) Chronic kidney disease; Translations: [Chronic kidney disease, unspecified] Onset: 3 Resolved: 5 Chronic Chronic kidney disease (3 sources) Chronic kidney disease; Translations: [Chronic kidney disease, stage 3a] Onset: 3 Deficiency and other anemia (3 sources) Anemia, unspecified; Translations: [Anemia, unspecified] Episodic Diabetes mellitus with complications (20 sources) Type 2 diabetes mellitus; Translations: [Type 2 diabetes mellitus with diabetic chronic kidney disease] Onset: 5 Resolved: 5 Chronic Diabetes mellitus without complication (4 sources) Diabetes mellitus; Translations: [Type 2 diabetes mellitus without complication] 01-23-2025 Chronic Diseases of white blood cells (20 sources) Band neutrophil count above reference range; Translations: [Bandemia] Onset: 3 Chronic Disorders of lipid metabolism (20 sources) Hyperlipidemia; Translations: [Hyperlipidemia, unspecified] Onset: 6 Chronic Esophageal disorders (13 sources) Gastroesophageal reflux disease; Translations: [Gastro-esophageal reflux disease without esophagitis] Onset: 5 10-23-2024 Chronic Essential hypertension (20 sources) Essential hypertension; Translations: [Essential (primary) hypertension] Onset: 5 Chronic Fever of unknown origin (1 source) Fever, unspecified; Translations: [FEVER UNSPECIFIED] Onset: 3 Episodic Gastroduodenal ulcer (except hemorrhage) (20 sources) Ulcer of duodenum; Translations: [Duodenal ulcer, unspecified as acute or chronic, without hemorrhage or perforation] Onset: 9 12-05-2022 Chronic Genitourinary symptoms and ill-defined conditions (2 sources) Dribbling of urine; Translations: [Post-void dribbling] 03-07-2024 Chronic Gout and other crystal arthropathies (20 sources) Primary gout; Translations: [Idiopathic gout, left ankle and foot] Onset: 5 Resolved: 5 12-05-2022 Chronic Headache; including migraine (20 sources) Migraine; Translations: [Migraine, unspecified, not intractable, without status migrainosus] Onset: 6 12-05-2022 Chronic Hyperplasia of prostate (20 sources) Benign prostatic hyperplasia; Translations: [Benign prostatic hyperplasia without lower urinary tract symptoms] Onset: 3 Resolved: 5 12-05-2022 Chronic Hypertension with complications and secondary hypertension (20 sources) Hypertensive chronic kidney disease with stage 1 through stage 4 chronic kidney disease, or unspecified chronic kidney disease; Translations: [Hypertensive renal disease] Onset: 3 12-05-2022 Chronic Immunizations and screening for infectious disease (4 sources) Vaccination needed; Translations: [Encounter for immunization] 04-19-2024 Episodic Miscellaneous mental health disorders (2 sources) Primary insomnia; Translations: [Primary insomnia] 08-28-2024 Chronic Mood disorders (20 sources) Recurrent major depressive episodes, moderate ; Translations: [Major depressive disorder, recurrent, moderate] Onset: 2 Resolved: 5 Chronic Mycoses (2 sources) Tinea cruris; Translations: [Tinea cruris] 07-05-2024 Episodic Nephritis; nephrosis; renal sclerosis (20 sources) Atrophy of right kidney; 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 kidney (terminal)] Onset: 3 Chronic Nutritional deficiencies (7 sources) Vitamin D deficiency, unspecified; Translations: [Vitamin D deficiency] Onset: 2 01-05-2024 Chronic Other aftercare (4 sources) [facility] (current) use of insulin; 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] Onset: 3 Episodic Other aftercare (1 source) Other [facility] (current) drug therapy; Translations: [OTH DETENTION CURRENT DRUG THERAPY] Onset: 3 Episodic Other aftercare (6 sources) Taking high risk medication; Translations: [Other group home (current) drug therapy] 01-05-2024 Episodic Other aftercare (9 sources) Insulin dose changed; Translations: [[facility] (current) use of insulin] Onset: 5 11-08-2024 Episodic Other aftercare (1 source) Postoperative visit; Translations: [Encounter for other specified surgical aftercare] 12-02-2024 Episodic Other circulatory disease (1 source) Other hypotension Episodic Other circulatory disease (2 sources) Low blood pressure; Translations: [Hypotension, unspecified] 08-20-2023 Episodic Other circulatory disease (2 sources) Hypotension, unspecified; Translations: [Hypotension, unspecified] 09-07-2023 Episodic Other circulatory disease (1 source) Orthostatic hypotension; Translations: [Orthostatic hypotension] Onset: 5 Episodic Other connective tissue disease (1 source) Muscle weakness (generalized); Translations: [MUSCLE WEAKNESS GENERALIZED] Onset: 3 Episodic Other diseases of bladder and urethra (1 source) Male urethral stricture; Translations: [Other urethral stricture, male, meatal] 11-20-2024 Episodic Other diseases of bladder and urethra (1 source) Other urethral stricture, male, meatal; Translations: [Other stricture of urethral meatus in male] Onset: 5 Episodic Other diseases of kidney and ureters (4 sources) Hyperparathyroidism due to renal insufficiency; Translations: [Secondary hyperparathyroidism of renal origin] Chronic Other diseases of kidney and ureters (1 source) Disorder of kidney and/or ureter; Translations: [Other specified disorders of kidney and ureter] Onset: 5 Chronic Other diseases of kidney and ureters (20 sources) Renal mass; Translations: [Other specified disorders of kidney and ureter] Onset: 5 05-30-2024 Chronic Other diseases of kidney and ureters (1 source) Disorder of kidney and ureter, unspecified; Translations: [DISORDER KIDNEY AND URETER UNS] Onset: 3 Episodic Other diseases of veins and lymphatics (20 sources) Lymphedema; Translations: [Lymphedema, not elsewhere classified] Onset: 9 12-05-2022 Chronic Other endocrine disorders (20 sources) Osteitis fibrosa cystica; Translations: [Primary hyperparathyroidism] Onset: 4 08-20-2023 Chronic Other endocrine disorders (2 sources) Primary hyperparathyroidism; Translations: [Primary hyperparathyroidism] 09-07-2023 Chronic Other gastrointestinal disorders (2 sources) Chronic idiopathic constipation; Translations: [Chronic idiopathic constipation] 08-28-2024 Chronic Other hereditary and degenerative nervous system conditions (20 sources) Tardive dyskinesia; Translations: [Drug induced subacute dyskinesia] Onset: 4 07-27-2023 Episodic Other hereditary and degenerative nervous system conditions (1 source) Drug induced subacute dyskinesia; Translations: [Tardive dyskinesia] Onset: 5 Episodic Other lower respiratory disease (1 source) Hyperventilation; Translations: [Hyperventilation] Onset: 4 Episodic Other lower respiratory disease (2 sources) Dyspnea on exertion; Translations: [Other forms of dyspnea] 08-28-2024 Episodic Other male genital disorders (20 sources) Acquired buried penis; Translations: [Acquired buried penis] Onset: 5 06-15-2024 Chronic Other male genital disorders (1 source) Secondary erectile dysfunction; Translations: [Male erectile dysfunction, unspecified] 07-05-2024 Chronic Other male genital disorders (1 source) Acquired buried penis; Translations: [Acquired buried penis] Onset: 5 Chronic Other nervous system disorders (20 sources) Tremor; Translations: [Tremor, unspecified] Onset: 3 Episodic Other nervous system disorders [...] Chronic Other nutritional; endocrine; and metabolic disorders (2 sources) Morbid (severe) obesity due to excess calories; Translations: [MORBID SEVERE OBES D/T EXCESS FEI] Onset: 3 Chronic Other nutritional; endocrine; and metabolic disorders (20 sources) Body mass index 30+ - obesity; Translations: [Obesity, unspecified] Onset: 5 04-19-2024 Chronic Other nutritional; endocrine; and metabolic disorders (3 sources) Obesity; Translations: [Obesity, unspecified] Onset: 3 07-19-2022 Chronic Other nutritional; endocrine; and metabolic disorders (3 sources) Obesity, unspecified; Translations: [Obesity, unspecified] Chronic Other nutritional; endocrine; and metabolic disorders (20 sources) Morbid obesity; Translations: [Morbid (severe) obesity due to excess calories] Onset: 3 12-06-2022 Chronic Other nutritional; endocrine; and metabolic disorders (20 sources) Obesity caused by energy imbalance; Translations: [Morbid (severe) obesity due to excess calories] Onset: 3 04-19-2024 Chronic Other nutritional; endocrine; and metabolic disorders (1 source) Hypomagnesemia; Translations: [Hypomagnesemia] 03-07-2024 Chronic Other nutritional; endocrine; and metabolic disorders (1 source) Hypomagnesemia; Translations: [Disorders of magnesium metabolism] 07-10-2024 Chronic Other nutritional; endocrine; and metabolic disorders (3 sources) Hyperuricemia without signs of inflammatory arthritis and tophaceous disease; Translations: [Other abnormal blood chemistry] Episodic Other nutritional; endocrine; and metabolic disorders (2 sources) Hyperuricemia; Translations: [Hyperuricemia without signs of inflammatory arthritis and tophaceous disease] 08-20-2023 Episodic Peripheral and visceral atherosclerosis (20 sources) Peripheral vascular disease, unspecified; Translations: [Peripheral vascular disease] Onset: 7 12-05-2022 Chronic Residual codes; unclassified (6 sources) Obstructive sleep apnea (adult) (pediatric); Translations: [OBSTRUCTIVE SLEEP APNEA] Onset: 3 Chronic Residual codes; unclassified (20 sources) Obstructive sleep apnea syndrome; Translations: [Obstructive sleep apnea (adult) (pediatric)] Onset: 7 12-05-2022 Chronic Residual codes; unclassified (3 sources) Sleep apnea 05-03-2024 Chronic Residual codes; unclassified (1 source) Acquired absence of other specified parts of digestive tract; Translations: [ACQ ABSENCE OTH PART DIGESTV TRACT] Onset: 3 Episodic Residual codes; unclassified (1 source) Absent kidney; Translations: [Acquired absence of kidney] 07-05-2024 Episodic Residual codes; unclassified (2 sources) Other problems related to lifestyle; Translations: [Other problems related to lifestyle] 08-28-2024 Episodic Residual codes; unclassified (2 sources) Localized edema; Translations: [Localized edema] 08-28-2024 Episodic Unclassified (2 sources) Unknown / UNK(Unknown) Onset: 7 Unclassified (4 sources) CONTACT W/AND (SUSP) EXPOS COVID-19; Translations: [CONTACT W/AND (SUSP) EXPOS COVID-19] Onset: 2 Unclassified (1 source) CHRN KIDNEY DISEASE STG 3 UNSP; Translations: [CHRN KIDNEY DISEASE STG 3 UNSP] Onset: 3 Unclassified (1 source) COUGH, UNSPECIFIED; Translations: [COUGH, UNSPECIFIED] Onset: 2 Unclassified (3 sources) History of clinical finding in subject 05-03-2024 Unclassified (1 source) Post Op Onset: 5 Past or Other Problems Problem Classification Problem Date Documented Da te Episodic/Chronic Acute and unspecified renal failure (20 sources) Acute renal failure due to acute cortical necrosis; Translations: [Acute kidney failure with acute cortical necrosis] Onset: 05-28-2022 Resolved: 04-19-2024 Episodic Adjustment disorders (20 sources) Adjustment disorder with depressed mood; Translations: [Adjustment disorder with depressed mood] Onset: 08-10-2022 Resolved: 09-07-2022 09-07-2022 Chronic Calculus of urinary tract (20 sources) Ureteric stone; Translations: [Calculus of ureter] Onset: 06-27-2015 Episodic Conditions associated with dizziness or vertigo (20 sources) Dizziness and giddiness; Translations: [Dizziness] Onset: 08-12-2016 12-05-2022 Episodic Deficiency and other anemia (20 sources) Anemia; Translations: [Anemia, unspecified] Onset: 10-09-2023 08-20-2023 Episodic Fluid and electrolyte disorders (20 sources) Hyponatremia; Translations: [Hypo-osmolality and hyponatremia] Onset: 06-21-2022 Resolved: 08-28-2024 Episodic Genitourinary symptoms and ill-defined conditions (20 sources) Personal history of other diseases of urinary system; Translations: [Personal history of other specified urinary system disorders] Onset: 07-15-2022 07-19-2022 Episodic Malaise and fatigue (20 sources) Asthenia; Translations: [Other malaise] Onset: 06-01-2022 Episodic Mood disorders (20 sources) Mood disorders; Translations: [DEPRESSION UNSPECIFIED] Onset: 03-22-2023 Resolved: 12-05-2024 03-22-2023 Nonspecific chest pain (20 sources) Chest pain; Translations: [Chest pain, unspecified] Onset: 08-12-2016 12-05-2022 Episodic Nutritional deficiencies (20 sources) Deficiency of other specified B group vitamins; Translations: [Folic acid deficiency] Onset: 10-09-2023 Episodic Other aftercare (20 sources) Long-term current use of insulin; Translations: [[facility] (current) use of insulin] Onset: 01-24-2019 12-05-2022 Episodic Other circulatory disease (4 sources) Other specified symptoms and signs involving the circulatory and respiratory systems; Translations: [OTH SYMPTOMS AND SIGNS INVOLVING THE CIRC AND RESP SYSTEMS] Onset: 09-17-2016 Episodic Other circulatory disease (20 sources) Orthostatic hypotension; Translations: [Orthostatic hypotension] Onset: 07-15-2022 07-19-2022 Episodic Other diseases of kidney and ureters (6 sources) Hydronephrosis; Translations: [Unspecified hydronephrosis] Onset: 05-28-2022 Episodic Other gastrointestinal disorders (20 sources) Constipation; Translations: [Constipation, unspecified] Onset: 05-15-2018 12-05-2022 Episodic Other hematologic conditions (20 sources) History of anemia; Translations: [Personal history of diseases of the blood and blood-forming organs and certain disorders involving the immune mechanism] Onset: 07-17-2022 07-19-2022 Episodic Other injuries and conditions due to external causes (20 sources) Injury of finger of right hand; Translations: [Unspecified injury of right wrist, hand and finger(s), initial encounter] Onset: 12-25-2021 Resolved: 04-19-2024 12-05-2022 Episodic Other lower respiratory disease (20 sources) Hyperventilation; Translations: [Hyperventilation] Onset: 07-19-2023 Resolved: 08-28-2024 01-23-2023 Episodic Other lower respiratory disease (20 sources) Dyspnea; Translations: [Dyspnea, unspecified] Onset: 08-12-2016 12-05-2022 Episodic Other male genital disorders (20 sources) Phimosis; Translations: [Phimosis] Onset: 04-18-2024 Episodic Other nervous system disorders (20 sources) Mononeuropathy of lower limb; Translations: [Unspecified mononeuropathy of unspecified lower limb] Onset: 08-15-2018 Resolved: 08-28-2024 12-05-2022 Chronic Other nervous system disorders (20 sources) History of clinical finding in subject; Translations: [Personal history of other diseases of the nervous system and sense organs] Onset: 06-14-2024 Resolved: 08-28-2024 06-14-2024 Episodic Other nutritional; endocrine; and metabolic disorders (20 sources) Severe obesity; Translations: [Morbid (severe) obesity due to excess calories] Onset: 01-15-2021 Resolved: 08-28-2024 12-05-2022 Chronic Other screening for suspected conditions (not mental disorders or infectious disease) (20 sources) Patient encounter status; Translations: [Encounter for screening for malignant neoplasm of prostate] Onset: 12-06-2022 12-06-2022 Episodic Other upper respiratory disease (1 source) Nasal congestion; Translations: [NASAL CONGESTION] Onset: 04-07-2022 Episodic Residual codes; unclassified (1 source) Pain, unspecified; Translations: [PAIN UNSPECIFIED] Onset: 04-07-2022 Episodic Residual codes; unclassified (20 sources) Edema; Translations: [Edema, unspecified] Onset: 02-06-2015 12-05-2022 Episodic Residual codes; unclassified (20 sources) Insomnia; Translations: [Insomnia, unspecified] Onset: 12-05-2022 12-05-2022 Episodic Residual codes; unclassified (20 sources) Confusional state; Translations: [Disorientation, unspecified] Onset: 03-08-2023 03-08-2023 Episodic Syncope (20 sources) Syncope and collapse; Translations: [Syncope] Onset: 07-14-2022 Episodic Unclassified (1 source) Edema, unspecified; Translations: [EDEMA, UNSPECIFIED] Onset: 09-17-2016 Episodic Unclassified (1 source) CONTACT W/AND (SUSP) EXPOS COVID-19; Translations: [CONTACT W/AND (SUSP) EXPOS COVID-19] Onset: 03-31-2022 Urinary tract infections (20 sources) Pyelonephritis; Translations: [Tubulo-interstitial nephritis, not specified as acute or chronic] Onset: 05-27-2022 Resolved: 08-28-2024 Episodic Results Test Name Value Interpretation Reference Range Facility [facility] 12-17-2024 CNOV Office Visit (UROLMN ) STEVEN WALDEN ([id number]) 1960 M Date Time Provider Department 12/17/24 11:15 AM VAN GILLIS During your visit today, we recorded the following information about you: Van Gillis MD 12/17/2024 11:16 AM Signed POST OP CHECK Doing well No pain Did 2 weeks self dilation with clobetasol Panniculectomy well healed Graft looks good, healing well Junction of graft and base of penis left sill with small open area, and ventrally at frenulum but both with good granulation tissue Scrotal incision well healed Meatus is patent but small Will see him in about 6 weeks Van Gillis MD Director, [facility] Referring Provider: SELF [[id number]] Allergies As of Date: 12/17/2024 Noted Allergy Reaction MIRTAZAPINE 10/16/2024 1 - Mental Status Change Date Reviewed: 12/17/2024 Reviewed by: Van Gillis MD - Fully Assessed Reason for Visit: Follow Up [171] Primary Visit Diagnosis: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 - Amoxicillin 500 mg tablet Take 500 mg by mouth two times a day. - hydrOXYzine pamoate (VISTARIL) 50 mg capsule Take 50 mg by mouth. - PARoxetine (PAXIL) 20 mg tablet Take 20 mg by mouth. - allopurinol (ZYLOPRIM) 100 mg tablet Take 100 mg by mouth once daily. - folic acid 1 mg tablet Take 1 mg by mouth once daily. - furosemide (LASIX) 40 mg tablet Take 40 mg by mouth once daily. - omeprazole (PRILOSEC) 40 mg capsule Take 40 mg by mouth once daily. - midodrine (PROAMATINE) 2.5 mg tablet Take 2.5 mg by mouth once daily. - thiamine (VITAMIN B-1) 100 mg tablet Take 100 mg by mouth once daily. - potassium chloride ER (KLOR-CON) 20 mEq tablet Take 20 mEq by mouth once daily. - QUEtiapine (SEROQUEL) 25 mg tablet Take 25 mg by mouth daily at bedtime. - QUEtiapine (SEROQUEL) 200 mg tablet Take 200 mg by mouth daily at bedtime. - ferrous sulfate (IRON) 325 mg (65 mg iron) tablet Take 325 mg by mouth once daily. - simethicone/sod bicarb/tta (SODIUM BICARB-TARTARIC ACID ORAL) Take 1,300 mg by mouth once daily. - atorvastatin (LIPITOR) 20 mg tablet Take 20 mg by mouth once daily. - magnesium oxide 400 mg magnesium tab Take 400 mg by mouth once daily. - valbenazine (INGREZZA) 60 mg capsule Take 60 mg by mouth once daily. - insulin regular, human (HUMULIN R U-500, CONC, INSULIN SUBCUTANEOUS) Inject subcutaneously. Sliding scale 30 to 50 units - dulaglutide (TRULICITY SUBCUTANEOUS) Inject subcutaneously one time a week. 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] 11/06/2024 Type 2 diabetes mellitus with hyperglycemia, wi*11/08/2024 Insulin dose changed (HCC) [Z79.4] 11/08/2024 Encounter Status:Closed by VAN GILLIS on 12/17/24 [facility] 11-30-2024 CNOV Office Visit (PLASMN ) STEVEN WALDEN ([id number]) 1960 M Date Time Provider Department 11/30/24 8:30 AM PADUBIDRI, ABHI PLASMN During your visit today, we recorded the following information about you: Temperature Pulse Blood pressure 97.4 degrees 67/minute 118/81 Abhi Galicia MD 12/02/2024 10:40 AM Signed Plastic Surgery Follow Up CC: Post op HPI: Steven is here for initial post op appointment following surgery. Patient had Split-thickness skin grafting shaft of the penis performed 11/06/2024 Time post op: 3 weeks Denies fevers, chills, erythema, induration, fluctuance, hematoma, seroma, purulent drainage, odor. He was having trouble urinating and followed up with Dr. Gillis on 11/20/24. He underwent meatal dilation and was prescribed clobetasol to apply to the area to prevent urethral closure. Patient reports he is using handheld urinal to urinate. His spouse uses a saline wound wash to cleanse the area if the dressing gets saturated with urine. He denies pain today, reports infrequent use of pain medications and is taking Tylenol as needed for pain. Surgical pathology/cultures: FINAL DIAGNOSIS A. Skin, penis, biopsy: - Scar-like tissue with minor chronic inflammation. - Negative for neoplasm. B. Skin, escutcheon, escutcheonectomy: - Benign skin and subcutaneous tissue with minor fibrosis. REVIEW OF SYSTEMS GENERAL: No weight loss, malaise or fevers SKIN: See HPI PMH: PAST MEDICAL HISTORY Diagnosis Date Anxiety 10/23/2024 Ascending aorta dilatation 10/23/2024 CKD (chronic kidney disease) stage 4, GFR 15-29 ml/min ([facility]) 10/23/2024 GERD (gastroesophageal reflux disease) 10/23/2024 Morbid obesity (HCC) 10/23/2024 Myocardial bridge ([facility]) 10/23/2024 Orthostatic hypotension 10/23/2024 SHADE (obstructive sleep apnea) 10/23/2024 Tardive dyskinesia 10/23/2024 Type 2 diabetes mellitus with kidney complication, with long-term current use of insulin ([facility]) 10/23/2024 PSH: PAST SURGICAL HISTORY Procedure Laterality Date PAST SURGICAL HISTORY OF 2011 cholecystectomy PAST SURGICAL HISTORY OF hand surgery PAST SURGICAL HISTORY OF circumcision MEDICATIONS: PAST MEDICAL HISTORY Diagnosis Date Anxiety 10/23/2024 Ascending aorta dilatation 10/23/2024 CKD (chronic kidney disease) stage 4, GFR 15-29 ml/min ([facility]) 10/23/2024 GERD (gastroesophageal reflux disease) 10/23/2024 Morbid obesity (HCC) 10/23/2024 Myocardial bridge ([facility]) 10/23/2024 Orthostatic hypotension 10/23/2024 SHADE (obstructive sleep apnea) 10/23/2024 Tardive dyskinesia 10/23/2024 Type 2 diabetes mellitus with kidney complication, with long-term current use of insulin ([facility]) 10/23/2024 PHYSICAL EXAM: BP 118/81 Pulse 67 Temp 36.3 ?C (97.4 ?F) (Temporal) GENERAL: Patient is a well-nourished , appearing stated age, resting comfortably, breathing regularly. No acute distress. WOUND: shaft of penis skin graft with good take, small sore area at tip of penis, right thigh donor site mostly healed with some small open areas ASSESSMENT/PLAN: Patient is 3 weeks s/p Split-thickness skin grafting shaft of the penis performed on 11/06/24 Expected post-operative course, 100% skin graft take -Ok to resume showering -Wound care instructions: May shower, gently wash surgical sites. Remove dressings when showering. Pat dry. To right thigh: continue applying Xeroform gauze until there are no more openings in the skin, cover and hold in place with ABD pad and tape. Change dressing daily after showering. To penis: apply a layer of antibiotic ointment to the sore area at the top of penis. Apply daily after showering. No need to cover penis with gauze at this point. -Can resume wearing regular underwear -Continue follow up with urology -Contact office with any questions/concerns/ch anges prior to next appointment Follow up in 3 weeks The patient is seen and examined by Dr. Abhi Galicia MD and the following reflects his service. Scribed by Leslie Ya RN Attending Note I have personally performed a face to face assessment of the patient and have reviewed the RN's note. I agree with the Chief Complaint, ROS, and Past Histories independently gathered by the clinical sales support assistant and the remaining scribed note accurately describes my personal service to the patient. SIGNATURE: Abhi Galicia MD DATE: December 02, 2024 TIME: 10:39 AM Allergies As of Date: 11/30/2024 Noted Allergy Reaction MIRTAZAPINE 10/16/2024 1 - Mental Status Change Date Reviewed: 11/20/2024 Reviewed by: Van Gillis MD - Fully Assessed Reason for Visit: Post Op [174] Primary Visit Diagnosis:Postoperati ve visit [Z48.89] Prescriptions as of 12/02/2024 - clobetasol (TEMOVATE) 0.05 % ointment Apply to affected area two times a day for 14 days. Apply using urethral dilator as directed. - docusate sodium (COLACE) 1 (more content not included)... Normal [facility] CNOVon 11-20-2024 CNOV Office Visit (UROLMN ) STEVEN WALDEN ([id number]) 1960 M Date Time Provider Department 11/20/24 9:00 AM VAN GILLIS UROLMN During your visit today, we recorded the following information about you: Van Gillis MD 11/20/2024 10:37 AM Signed POST OP CHECK Having trouble voiding Once gets stream started he's fine On exam his meatus is narrow with some surrounding inflammatory changes All wounds look great and healing well without dehiscence or infection. Showed patient how to use meatal dilator BID. He will use this with clobetasol for 2 weeks, and then we will see how he does. Will move follow up farther out since I was able to examine him today. 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 Apply using urethral dilator as directed.Disp: 30 gRfl: 0 Prescriptions as of 11/20/2024 - clobetasol (TEMOVATE) 0.05 % ointment Apply to affected area two times a day for 14 days. Apply using urethral dilator as directed. - docusate sodium (COLACE) 100 mg capsule Take 1 capsule by mouth two times a day. - Amoxicillin 500 mg tablet Take 500 mg by mouth two times a day. - hydrOXYzine pamoate (VISTARIL) 50 mg capsule Take 50 mg by mouth. - PARoxetine (PAXIL) 20 mg tablet Take 20 mg by mouth. - allopurinol (ZYLOPRIM) 100 mg tablet Take 100 mg by mouth once daily. - folic acid 1 mg tablet Take 1 mg by mouth once daily. - furosemide (LASIX) 40 mg tablet Take 40 mg by mouth once daily. - omeprazole (PRILOSEC) 40 mg capsule Take 40 mg by mouth once daily. - midodrine (PROAMATINE) 2.5 mg tablet Take 2.5 mg by mouth once daily. - thiamine (VITAMIN B-1) 100 mg tablet Take 100 mg by mouth once daily. - potassium chloride ER (KLOR-CON) 20 mEq tablet Take 20 mEq by mouth once daily. - QUEtiapine (SEROQUEL) 25 mg tablet Take 25 mg by mouth daily at bedtime. - QUEtiapine (SEROQUEL) 200 mg tablet Take 200 mg by mouth daily at bedtime. - ferrous sulfate (IRON) 325 mg (65 mg iron) tablet Take 325 mg by mouth once daily. - simethicone/sod bicarb/tta (SODIUM BICARB-TARTARIC ACID ORAL) Take 1,300 mg by mouth once daily. - atorvastatin (LIPITOR) 20 mg tablet Take 20 mg by mouth once daily. - magnesium oxide 400 mg magnesium tab Take 400 mg by mouth once daily. - valbenazine (INGREZZA) 60 mg capsule Take 60 mg by mouth once daily. - insulin regular, human (HUMULIN R U-500, CONC, INSULIN SUBCUTANEOUS) Inject subcutaneously. Sliding scale 30 to 50 units - dulaglutide (TRULICITY SUBCUTANEOUS) Inject subcutaneously one time a week. 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 Apply using urethral dilator as directed. Encounter Status:Closed by VAN GILLIS on 11/20/24 [facility] 11-19-2024 [facility] Telephone (UROMONICON) STEVEN WALDEN ([id number]) 1960 M Date Time Provider Department 11/19/24 RIKI LONG During your visit today, we recorded the following information about you: Riki Long RN 11/19/2024 12:23 PM Signed Received voicemail from patient's , Elidia, concerned about difficulty voiding. Steven Walden is s/p Buried Penis Repair with split thickness graft with Dr. Gillis and Dr. Galicia on 11/06/24. Patient c/o difficulty voiding since yesterday. Pushes to initiate urine flow and to finish voiding. Weak stream and takes longer to void. Reports emptying bladder. Reports burning on glans with voiding. Skin is raw on glans. Patient's spoke with Plastics yesterday and was advised to apply vaseline to penis to help with pain with voiding. Helped some. Home health nurse was unable to visualize the urethral meatus today. Patient's cleaned off clear yellow scab from meatus and meatus visualized. Patient has post-op with Dr. Gillis scheduled on 11/26/[address] Galicia on 11/30/24. Will send photo on [employer]. Message will be routed to Dr. Gillis. Riki Long RN 11/14/[address] Gillis POST OP VISIT Doing well. Minimal drain output. Seeing plastics today. Pain well controlled. Carballo and Jps removed Escutcheonectomy dressing removed. Looks good. Prineo still on mostly. Can leave open to air. No need for any wound care there. Dry gauze applied to drain sites. Scrotal incision looks good Left shaft Coban on for plastics and also thigh dressing. To see plastics today for graft care instructions Whatever he does to shaft can also be done to scrotal incision RTC with me 2 weeks, admin to arrange. Riki Long RN 11/19/2024 2:18 PM Signed Spoke with Elidia. Patient to come in for carballo placement tomorrow at 9:30 am. If unable to void or bladder pain/pressure in the interim, pt to go to local ED. Riki Long RN Allergies As of Date: 11/19/2024 (No Known Allergies) Date Reviewed: 11/14/2024 Reviewed by: Paul Dumont OCCA - Fully Assessed Reason for Visit: Post Op [174] Prescriptions as of 11/19/2024 - docusate sodium (COLACE) 100 mg capsule Take 1 capsule by mouth two times a day. - Amoxicillin 500 mg tablet Take 500 mg by mouth two times a day. - hydrOXYzine pamoate (VISTARIL) 50 mg capsule Take 50 mg by mouth. - PARoxetine (PAXIL) 20 mg tablet Take 20 mg by mouth. - allopurinol (ZYLOPRIM) 100 mg tablet Take 100 mg by mouth once daily. - folic acid 1 mg tablet Take 1 mg by mouth once daily. - furosemide (LASIX) 40 mg tablet Take 40 mg by mouth once daily. - omeprazole (PRILOSEC) 40 mg capsule Take 40 mg by mouth once daily. - midodrine (PROAMATINE) 2.5 mg tablet Take 2.5 mg by mouth once daily. - thiamine (VITAMIN B-1) 100 mg tablet Take 100 mg by mouth once daily. - potassium chloride ER (KLOR-CON) 20 mEq tablet Take 20 mEq by mouth once daily. - QUEtiapine (SEROQUEL) 25 mg tablet Take 25 mg by mouth daily at bedtime. - QUEtiapine (SEROQUEL) 200 mg tablet Take 200 mg by mouth daily at bedtime. - ferrous sulfate (IRON) 325 mg (65 mg iron) tablet Take 325 mg by mouth once daily. - simethicone/sod bicarb/tta (SODIUM BICARB-TARTARIC ACID ORAL) Take 1,300 mg by mouth once daily. - atorvastatin (LIPITOR) 20 mg tablet Take 20 mg by mouth once daily. - magnesium oxide 400 mg magnesium tab Take 400 mg by mouth once daily. - valbenazine (INGREZZA) 60 mg capsule Take 60 mg by mouth once daily. - insulin regular, human (HUMULIN R U-500, CONC, INSULIN SUBCUTANEOUS) Inject subcutaneously. Sliding scale 30 to 50 units - dulaglutide (TRULICITY SUBCUTANEOUS) Inject subcutaneously one time a week. 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 They are having a hard time seeing the whole. RN states that it looks raw and a n abrasion. This was a combo case with urology and plastics Shilpa from [facility] [phone] Brea Doss APRN.LINEN GRADER 11/19/2024 12:32 PM Signed Patient reached out to urology. Urology addressed concern Brea Doss APRN.LINEN GRADER Allergies As of Date: 11/19/2024 (No Known Allergies) Date Reviewed: 11/14/2024 Reviewed by: Paul Dumont OCCA - Fully Assessed Prescriptions as of 11/19/2024 - docusate sodium (COLACE) 100 mg capsule Take 1 capsule by mouth two times a day. - Amoxicillin 500 mg tablet Take 500 mg by mouth two times a day. - hydrOXYzine pamoate (VISTARIL) 50 mg capsule Take 50 mg by mouth. - PARoxetine (PAXIL) 20 mg tablet Take 20 mg by mouth. - allopurinol (ZYLOPRIM) 100 mg tablet Take 100 mg by mouth once daily. - folic acid 1 mg tablet Take 1 mg by mouth once daily. - furosemide (LASIX) 40 mg tablet Take 40 mg by mouth once daily. - omeprazole (PRILOSEC) 40 mg capsule Take 40 mg by mouth once daily. - midodrine (PROAMATINE) 2.5 mg tablet Take 2.5 mg by mouth once daily. - thiamine (VITAMIN B-1) 100 mg tablet Take 100 mg by mouth once daily. - potassium chloride ER (KLOR-CON) 20 mEq tablet Take 20 mEq by mouth once daily. - QUEtiapine (SEROQUEL) 25 mg tablet Take 25 mg by mouth daily at bedtime. - QUEtiapine (SEROQUEL) 200 mg tablet Take 200 mg by mouth daily at bedtime. - ferrous sulfate (IRON) 325 mg (65 mg iron) tablet Take 325 mg by mouth once daily. - simethicone/sod bicarb/tta (SODIUM BICARB-TARTARIC ACID ORAL) Take 1,300 mg by mouth once daily. - atorvastatin (LIPITOR) 20 mg tablet Take 20 mg by mouth once daily. - magnesium oxide 400 mg magnesium tab Take 400 mg by mouth once daily. - valbenazine (INGREZZA) 60 mg capsule Take 60 mg by mouth once daily. - insulin regular, human (HUMULIN R U-500, CONC, INSULIN SUBCUTANEOUS) Inject subcutaneously. Sliding scale 30 to 50 units - dulaglutide (TRULICITY SUBCUTANEOUS) Inject subcutaneously one time a week. 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] 11/06/2024 Type 2 diabetes mellitus with hyperglycemia, wi*11/08/2024 Insulin dose changed (HCC) [Z79.4] 11/08/2024 Encounter Status:Closed by JAQUI RUBIO on 11/19/24 [facility]PEnma 11-18-2024 CNPN Telephone (PLASMN) STEVEN WALDEN ([id number]) 1960 M Date Time Provider Department 11/18/24 MARY KATE BANUELOS During your visit today, we recorded the following information about you: Mary Kate Banuelos MD 11/18/2024 3:34 PM Signed Plastic Surgery Telephone Encounter Patient called with concern of: Pain with urination Steven Walden is a 64 year old male s/p STSG to penis shaft for buried penis with Dr. Galicia 11/06/24. Postop, patient had a mummy bandage around his penis. 11/14 bandage, LINDA, carballo removed. Since removal of the dressing, patient has noticed raw spots on the glans (away from the surgical site) where the dressing rubbed against it. Whenever he urinates, it hurts when the urine hits these raw spots. Today, his had to take a gauze and clean a scab off the uretheral opening in order to urinate. Denies fevers, chills, difficulty breathing, shortness of breath, diarrhea, increased pain or swelling at the incision site. Plan - Discussed with patient to try a thick occlusive barrier such as vaseline on the raw spots to prevent contact with urine before he goes to the bathroom. Clean the uretheral opening frequently to prevent buildup of occlusive ointment. - Continue wound care to the STSG site as directed - no concerns at the moment at the surgical site - Patient agreeable to plan at this time, all questions and concerns addressed. Patient encouraged to call back with any additional questions or concerns. Instructed on red-flag symptoms. - Upcoming followup appointment: 11/26 Allergies As of Date: 11/18/2024 (No Known Allergies) Date Reviewed: 11/14/2024 Reviewed by: Paul Dumont OCCA - Fully Assessed Prescriptions as of 11/18/2024 - docusate sodium (COLACE) 100 mg capsule Take 1 capsule by mouth two times a day. - Amoxicillin 500 mg tablet Take 500 mg by mouth two times a day. - hydrOXYzine pamoate (VISTARIL) 50 mg capsule Take 50 mg by mouth. - PARoxetine (PAXIL) 20 mg tablet Take 20 mg by mouth. - allopurinol (ZYLOPRIM) 100 mg tablet Take 100 mg by mouth once daily. - folic acid 1 mg tablet Take 1 mg by mouth once daily. - furosemide (LASIX) 40 mg tablet Take 40 mg by mouth once daily. - omeprazole (PRILOSEC) 40 mg capsule Take 40 mg by mouth once daily. - midodrine (PROAMATINE) 2.5 mg tablet Take 2.5 mg by mouth once daily. - thiamine (VITAMIN B-1) 100 mg tablet Take 100 mg by mouth once daily. - potassium chloride ER (KLOR-CON) 20 mEq tablet Take 20 mEq by mouth once daily. - QUEtiapine (SEROQUEL) 25 mg tablet Take 25 mg by mouth daily at bedtime. - QUEtiapine (SEROQUEL) 200 mg tablet Take 200 mg by mouth daily at bedtime. - ferrous sulfate (IRON) 325 mg (65 mg iron) tablet Take 325 mg by mouth once daily. - simethicone/sod bicarb/tta (SODIUM BICARB-TARTARIC ACID ORAL) Take 1,300 mg by mouth once daily. - atorvastatin (LIPITOR) 20 mg tablet Take 20 mg by mouth once daily. - magnesium oxide 400 mg magnesium tab Take 400 mg by mouth once daily. - valbenazine (INGREZZA) 60 mg capsule Take 60 mg by mouth once daily. - insulin regular, human (HUMULIN R U-500, CONC, INSULIN SUBCUTANEOUS) Inject subcutaneously. Sliding scale 30 to 50 units - dulaglutide (TRULICITY SUBCUTANEOUS) Inject subcutaneously one time a week. 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] 11/06/2024 Type 2 diabetes mellitus with hyperglycemia, wi*11/08/2024 Insulin dose changed (HCC) [Z79.4] 11/08/2024 Encounter Status:Closed by MARY KATE BANUELOS on 11/18/24 [facility] ([id number]) 1960 M Date Time Provider Department 11/15/24 VAN GILLIS During your visit today, we recorded the following information about you: Yenifer Powers 11/15/2024 9:07 AM Signed Steven is calling Van Gillis MD today to request Results (Would like to have the notes from his last visit () sent via fax, attention Eugenie) Patient has been identified by name and birthdate. Duration of symptoms: N/A Person calling: Eugenie [phone] [place] by [employer] Call patient at: na [phone] (home) [phone] (cell) Was an appointment scheduled: No Closing statement: Results or non-symptom based questions: Thank you for calling [facility], your call will be returned within the next business day. Fredo Sorenson OCCA 11/15/2024 1:33 PM Signed Last OV note faxed to Angie [place] by [employer] Allergies As of Date: 11/15/2024 (No Known Allergies) Date Reviewed: 11/14/2024 Reviewed by: Paul Dumont OCCA - Fully Assessed Reason for Visit: Results [95] Cmt: Would like to have the notes from his last visit () sent via fax, brice Traore Prescriptions as of 11/15/2024 - cephALEXin (KEFLEX) 500 mg capsule Take 1 capsule by mouth three times a day for 8 days. - docusate sodium (COLACE) 100 mg capsule Take 1 capsule by mouth two times a day. - Amoxicillin 500 mg tablet Take 500 mg by mouth two times a day. - hydrOXYzine pamoate (VISTARIL) 50 mg capsule Take 50 mg by mouth. - PARoxetine (PAXIL) 20 mg tablet Take 20 mg by mouth. - allopurinol (ZYLOPRIM) 100 mg tablet Take 100 mg by mouth once daily. - folic acid 1 mg tablet Take 1 mg by mouth once daily. - furosemide (LASIX) 40 mg tablet Take 40 mg by mouth once daily. - omeprazole (PRILOSEC) 40 mg capsule Take 40 mg by mouth once daily. - midodrine (PROAMATINE) 2.5 mg tablet Take 2.5 mg by mouth once daily. - thiamine (VITAMIN B-1) 100 mg tablet Take 100 mg by mouth once daily. - potassium chloride ER (KLOR-CON) 20 mEq tablet Take 20 mEq by mouth once daily. - QUEtiapine (SEROQUEL) 25 mg tablet Take 25 mg by mouth daily at bedtime. - QUEtiapine (SEROQUEL) 200 mg tablet Take 200 mg by mouth daily at bedtime. - ferrous sulfate (IRON) 325 mg (65 mg iron) tablet Take 325 mg by mouth once daily. - simethicone/sod bicarb/tta (SODIUM BICARB-TARTARIC ACID ORAL) Take 1,300 mg by mouth once daily. - atorvastatin (LIPITOR) 20 mg tablet Take 20 mg by mouth once daily. - magnesium oxide 400 mg magnesium tab Take 400 mg by mouth once daily. - valbenazine (INGREZZA) 60 mg capsule Take 60 mg by mouth once daily. - insulin regular, human (HUMULIN R U-500, CONC, INSULIN SUBCUTANEOUS) Inject subcutaneously. Sliding scale 30 to 50 units - dulaglutide (TRULICITY SUBCUTANEOUS) Inject subcutaneously one time a week. 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] 11/06/2024 Type 2 diabetes mellitus with hyperglycemia, wi*11/08/2024 Insulin dose changed (HCC) [Z79.4] 11/08/2024 Encounter Status:Closed by FREDO NICKERSON on 11/15/24 [facility] 11-14-2024 CNOV Office Visit (PLASMN ) STEVEN WALDEN ([id number]) 1960 M Date Time Provider Department 11/14/24 10:00 AM ABIH GALICIA During your visit today, we recorded the following information about you: Temperature Pulse Blood pressure 97.1 degrees 83/minute 133/87 Abhi Galicia MD 11/14/2024 2:07 PM Signed Plastic Surgery Follow Up CC: Post op HPI: Steven is here for initial post op appointment following surgery. Patient had Split-thickness skin grafting shaft of the penis performed 11/06/2024 Time post op: 1 week The patient was seen by urology today, and had both LINDA drains and his carballo catheter removed. He is taking keflex as prescribed, scheduled to complete course of 11/16/24. Denies fevers, chills, erythema, induration, fluctuance, hematoma, seroma, purulent drainage, odor. Surgical pathology/cultures: FINAL DIAGNOSIS A. Skin, penis, biopsy: - Scar-like tissue with minor chronic inflammation. - Negative for neoplasm. B. Skin, escutcheon, escutcheonectomy: - Benign skin and subcutaneous tissue with minor fibrosis. REVIEW OF SYSTEMS GENERAL: No weight loss, malaise or fevers SKIN: See HPI PMH: PAST MEDICAL HISTORY Diagnosis Date Anxiety 10/23/2024 Ascending aorta dilatation 10/23/2024 CKD (chronic kidney disease) stage 4, GFR 15-29 ml/min ([facility]) 10/23/2024 GERD (gastroesophageal reflux disease) 10/23/2024 Morbid obesity (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) 10/23/2024 PSH: PAST SURGICAL HISTORY Procedure Laterality Date PAST SURGICAL HISTORY OF 2011 cholecystectomy PAST SURGICAL HISTORY OF hand surgery PAST SURGICAL HISTORY OF circumcision MEDICATIONS: PAST MEDICAL HISTORY Diagnosis Date Anxiety 10/23/2024 Ascending aorta dilatation 10/23/2024 CKD (chronic kidney disease) stage 4, GFR 15-29 ml/min ([facility]) 10/23/2024 GERD (gastroesophageal reflux disease) 10/23/2024 Morbid obesity (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) 10/23/2024 PHYSICAL EXAM: BP 133/87 Pulse 83 Temp 36.2 ?C (97.1 ?F) (Temporal) SpO2 98% GENERAL: Patient is a well-nourished , appearing stated age, resting comfortably, breathing regularly. No acute distress. WOUND: shaft of penis skin graft with good take, donor site dressing on right thigh clean/dry/intact ASSESSMENT/PLAN: Patient is 8 days s/p Split-thickness skin grafting shaft of the penis performed on 11/06/24 Expected post-operative course, 100% skin graft take -Wound care instructions: Apply a Xeroform gauze around the penis skin graft, cover with a clean gauze. Wrap with a small Kerlix gauze to hold in place. Change daily. Do not shower for now, please sponge bathe only. Supplies given to patient for wound care, encouraged purchase of additional products in a drug store or online as needed. -Wear loose boxers only, avoid tight underwear -Contact office with any questions/concerns/ch anges prior to next appointment -If experiencing wound complications or have any questions or concerns during business hours call [phone], option 3 or after hours (after 5 pm or on the weekend) call [phone] and ask for the plastic surgery resident / fellow online affiliate marketing manager for further instructions. Follow up in 2 weeks The patient is seen and examined by Abhi Galicia M.D. and the following reflects his service. Scribed by Leslie Ya RN Referring Provider: SELF [200] Allergies As of Date: 11/14/2024 (No Known Allergies) Date Reviewed: 11/14/2024 Reviewed by: Paul Dumont OCCA - Fully Assessed Reason for Visit: Post Op [174] Primary Visit Diagnosis:Postoperati ve visit [Z48.89] Prescriptions as of 11/14/2024 - cephALEXin (KEFLEX) 500 mg capsule Take 1 capsule by mouth three times a day for 8 days. - docusate sodium (COLACE) 100 mg capsule Take 1 capsule by mouth two times a day. - Amoxicillin 500 mg tablet Take 500 mg by mouth two times a day. - hydrOXYzine pamoate (VISTARIL) 50 mg capsule Take 50 mg by mouth. - PARoxetine (PAXIL) 20 mg tablet Take 20 mg by mouth. - allopurinol (ZYLOPRIM) 100 mg tablet Take 100 mg by mouth once daily. - folic acid 1 mg tablet Take 1 mg by mouth once daily. - furosemide (LASIX) 40 mg tablet Take 40 mg by mouth once daily. - omeprazole (PRILOSEC) 40 mg capsule Take 40 mg by mouth once daily. - midodrine (PROAMATINE) 2.5 mg tablet Take 2.5 mg by mouth once daily. - thiamine (VITAMIN B-1) 100 mg tablet Take 100 mg by mouth onc (more content not included)... [facility] CNOV Office Visit (UROLBE ) STEVEN WALDEN ([id number]) 1960 M Date Time Provider Department 11/14/24 8:20 AM VAN GILLIS During your visit today, we recorded the following information about you: Van Gillis MD 11/14/2024 8:45 AM Signed POST OP VISIT Doing well. Minimal drain output. Seeing plastics today. Pain well controlled. Carballo and Jps removed Escutcheonectomy dressing removed. Looks good. Prineo still on mostly. Can leave open to air. No need for any wound care there. Dry gauze applied to drain sites. Scrotal incision looks good Left shaft Coban on for plastics and also thigh dressing. To see plastics today for graft care instructions Whatever he does to shaft can also be done to scrotal incision RTC with me 2 weeks, admin to arrange. 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 - docusate sodium (COLACE) 100 mg capsule Take 1 capsule by mouth two times a day. - Amoxicillin 500 mg tablet Take 500 mg by mouth two times a day. - hydrOXYzine pamoate (VISTARIL) 50 mg capsule Take 50 mg by mouth. - PARoxetine (PAXIL) 20 mg tablet Take 20 mg by mouth. - allopurinol (ZYLOPRIM) 100 mg tablet Take 100 mg by mouth once daily. - folic acid 1 mg tablet Take 1 mg by mouth once daily. - furosemide (LASIX) 40 mg tablet Take 40 mg by mouth once daily. - omeprazole (PRILOSEC) 40 mg capsule Take 40 mg by mouth once daily. - midodrine (PROAMATINE) 2.5 mg tablet Take 2.5 mg by mouth once daily. - thiamine (VITAMIN B-1) 100 mg tablet Take 100 mg by mouth once daily. - potassium chloride ER (KLOR-CON) 20 mEq tablet Take 20 mEq by mouth once daily. - QUEtiapine (SEROQUEL) 25 mg tablet Take 25 mg by mouth daily at bedtime. - QUEtiapine (SEROQUEL) 200 mg tablet Take 200 mg by mouth daily at bedtime. - ferrous sulfate (IRON) 325 mg (65 mg iron) tablet Take 325 mg by mouth once daily. - simethicone/sod bicarb/tta (SODIUM BICARB-TARTARIC ACID ORAL) Take 1,300 mg by mouth once daily. - atorvastatin (LIPITOR) 20 mg tablet Take 20 mg by mouth once daily. - magnesium oxide 400 mg magnesium tab Take 400 mg by mouth once daily. - valbenazine (INGREZZA) 60 mg capsule Take 60 mg by mouth once daily. - insulin regular, human (HUMULIN R U-500, CONC, INSULIN SUBCUTANEOUS) Inject subcutaneously. Sliding scale 30 to 50 units - dulaglutide (TRULICITY SUBCUTANEOUS) Inject subcutaneously one time a week. 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 I repeated and reviewed the relevant portions of the history, physical examination, assessment, and plan of management. I formulated the final plan for management. Hospitalization as noted in the discharge summary above. Van Gillis MD Director, [facility] for [facility] Staff, Department of [facility] [place] [id number] or ([phone]) [facility] C O N F I D E N T I A L I N F O R M A T I O N STANDARD [facility] DOCUMENT DISCHARGE SUMMARY Patient Name: Steven Walden Patient Admission Date: 11/06/2024 Discharge Date: 11/08/24 Attending Physician: Van Gillis MD Principal Diagnosis: Buried penis Secondary Diagnoses: Operations During Hospitalization: Procedure(s) (LRB): Excision, excessive skin and subcutaneous tissue (includes lipectomy); abdomen, infraumbilical panniculectomy (N/A) ADJACENT TISSUE TRANSFER / REARRANGEMENT ABDOMEN 30.1-60.0 SQCM (N/A) SCROTOPLASTY COMPLICATED (Bilateral) ADJACENT TISSUE TRANSFER / REARRANGEMENT ABDOMEN ADD'L < OR =30 SQCM SQCM (N/A) PLASTIC OP ON PENIS TO CORRECT ANGULATION (N/A) SPLIT-THICKNESS AUTOGRAFT MALE GENITALIA <100 SQ CM (Pending) Procedures Performed While Hospitalized: Intubation Reason for Hospitalization: Steven Walden is a 64 year old male with history of lichen sclerosis acquired buried penis now s/p complex wound closure of escutcheonectomy defect, lysis of penile adhesions, scrotectomy, penopubic junction fixation with creation of penopubic and penoscrotal angle. Plastic surgery completed split thickness skin graft harvest from the thigh and application. Hospital Course: The patient underwent the above procedure(s) (please see separately dictated operative report for full details of the procedure). Pt tolerated the procedure well and post-operatively was transferred to PACU and ultimately to a regular nursing unit. Pain was initially controlled with intravenous analgesia and pt's diet was restricted until signs of returning bowel function. Then diet was advanced as bowel function returned and pt was transitioned to oral pain medication as well as restarted on prior to admission medications. Hospital Summary: - 11/06/24: OR with urology for escutcheonectomy, plastics completed skin graft to penis from right thigh (15X7cm) - 11/07/24: Diet advanced to carb controlled, resumed activity per plastics, ambulated into hallway - 11/08/24: Resumed home insulin regimen, endocrinology offered homegoing recommendations to hold Trulicity and U500 20 units with breakfast and 30 units with dinner. 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 On post-operative day 2 pt was afebrile for 24 hours, ambulating without difficulty, tolerating a carb controlled diet, passing flatus, and pain was adequately controlled with PO medication. Patient discharged home with penile dressing in place, right thigh graft site with xeroform and tegaderm in place, escutcheonectomy dressings intact, bilateral LINDA drains. Discharged with carballo per urethra - 14Fr. Pt was discharged home with instructions to return for follow up in clinic with plastics and urology on 11/14/24. Patient Condition at Discharge: Stable Discharge Disposition: Home Information Provided to the Patient: Patient was given a copy of Discharge Instructions Discharge Medications: Medication List START taking these medications cephALEXin 500 mg capsule Commonly known as: KEFLEX Take 1 capsule by mouth three times a day for 8 days. docusate sodium 100 mg capsule Commonly known as: COLACE Take 1 capsule by mouth two times a day. oxyCODONE IR 5 mg immediate release tablet Commonly known as: ROXICODONE Take 1 tablet by mouth every 6 hours as needed for pain for up to 3 days. CONTINUE taking these medications allopurinol 100 mg tablet Commonly known as: ZYLOPRIM Amoxicillin 500 mg tablet atorvastatin 20 mg tablet Commonly known as: LIPITOR folic acid 1 mg tablet furosemide 40 mg tablet Commonly known as: LASIX HUMULIN R U-500 (CONC) INSULIN SQ hydrOXYzine pamoate 50 mg capsule Commonly known as: VISTARIL INGREZZA 60 mg capsule Generic drug: valbenazine Iron (more content not included)... Normal [facility] CONSULTon 11-08-2024 CONSULT HNO ID: [id number] Author: ANDREA GREEN APRN.CNP Service: Endocrinology Author Type: Nurse Practitioner Type: Consults Filed: 11/08/2024 16:37 Note Text: INITIAL CONSULT ENDOCRINOLOGY SERVICE DATE: 11/08/2024 SERVICE TIME: 8:26 AM Requesting Provider: Van Gillis MD Opinion/Advice Regarding: Management of Diabetes Mellitus Type 2 hyperglycemia Service: DCT (Diabetes Care Team) Subjective HPI: Mr. Steven Walden is a 64 year old male with a history of Diabetes Mellitus Type 2 hyperglycemia who was admitted on 11/06/2024 for s/p complex wound closure of escutcheonectomy defect, lysis of penile adhesions, scrotectomy, penopubic junction fixation with creation of penopubic and penoscrotal angle. Past medical history significant for CKD4, GERD, SHADE, DM2. Patient does not exercise. Last HbA1c was 7.1 on 06/15/24. He has a family history of diabetes in his mother, maternal grandmother and sister. He is followed by [employer], Dr. Houser for his diabetes. DIABETIC COMPLICATIONS: Neuropathy CKD4 Pre-Admission DM Regimen: Preadmission oral agents: Dulaglutide (Trulicity) 3 mg pen (once weekly on Tuesday)- last dose 10/23 Preadmission insulin regimen: U 500 concentrated insulin 30-40 units with breakfast and 50 units with dinner Self Monitoring Blood Glucose: Type of Monitor: One Touch Frequency of Monitoring: Two times a Day BG Values: Breakfast: 130-140s Dinner: 160-220 Hypoglycemia: rare, occasionally will wake up at 80-90s PAST MEDICAL HISTORY Diagnosis Date Anxiety 10/23/2024 Ascending aorta dilatation 10/23/2024 CKD (chronic kidney disease) stage 4, GFR 15-29 ml/min ([facility]) 10/23/2024 GERD (gastroesophageal reflux disease) 10/23/2024 Morbid obesity (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) 10/23/2024 PAST SURGICAL HISTORY Procedure Laterality Date PAST SURGICAL HISTORY OF 2011 cholecystectomy PAST SURGICAL HISTORY OF hand surgery PAST SURGICAL HISTORY OF circumcision FAMILY HISTORY Problem Relation Age of Onset Anesthesia No Family History Social History Tobacco Use Smoking status: Never Passive exposure: Past Smokeless tobacco: Never Substance Use Topics Alcohol use: Yes Comment: rare Drug use: Never MEDICATIONS: Amoxicillin 500 mg tablet, Take 500 mg by mouth two times a day., Disp: , Rfl: , 11/06/2024 at 2:15 AM hydrOXYzine pamoate (VISTARIL) 50 mg capsule, Take 50 mg by mouth., Disp: , Rfl: , 11/05/2024 Bedtime PARoxetine (PAXIL) 20 mg tablet, Take 20 mg by mouth., Disp: , Rfl: , 11/06/2024 at 2:15 AM allopurinol (ZYLOPRIM) 100 mg tablet, Take 100 mg by mouth once daily., Disp: , Rfl: , 11/05/2024 Morning folic acid 1 mg tablet, Take 1 mg by mouth once daily., Disp: , Rfl: , 11/05/2024 Morning furosemide (LASIX) 40 mg tablet, Take 40 mg by mouth once daily., Disp: , Rfl: , 11/05/2024 Morning omeprazole (PRILOSEC) 40 mg capsule, Take 40 mg by mouth once daily., Disp: , Rfl: , 11/06/2024 at 2:15 AM midodrine (PROAMATINE) 2.5 mg tablet, Take 2.5 mg by mouth once daily., Disp: , Rfl: , 11/06/2024 Morning thiamine (VITAMIN B-1) 100 mg tablet, Take 100 mg by mouth once daily., Disp: , Rfl: , 11/05/2024 Morning potassium chloride ER (KLOR-CON) 20 mEq tablet, Take 20 mEq by mouth once daily., Disp: , Rfl: , 11/06/2024 at 2:15 AM QUEtiapine (SEROQUEL) 200 mg tablet, Take 200 mg by mouth daily at bedtime., Disp: , Rfl: , 11/05/2024 Bedtime ferrous sulfate (IRON) 325 mg (65 mg iron) tablet, Take 325 mg by mouth once daily., Disp: , Rfl: , 11/05/2024 Bedtime simethicone/sod bicarb/tta (SODIUM BICARB-TARTARIC ACID ORAL), Take 1,300 mg by mouth once daily., Disp: , Rfl: , 11/05/2024 Bedtime atorvastatin (LIPITOR) 20 mg tablet, Take 20 mg by mouth once daily., Disp: , Rfl: , 11/05/2024 Bedtime magnesium oxide 400 mg magnesium tab, Take 400 mg by mouth once daily., Disp: , Rfl: , 11/05/2024 Bedtime valbenazine (INGREZZA) 60 mg capsule, Take 60 mg by mouth once daily., Disp: , Rfl: , 11/05/2024 Bedtime insulin regular, human (HUMULIN R U-500, CONC, INSULIN SUBCUTANEOUS), Inject subcutaneously. Sliding scale 30 to 50 units, Disp: , Rfl: , 11/05/2024 QUEtiapine (SEROQUEL) 25 mg tablet, Take 25 mg by mouth daily at bedtime., Disp: , Rfl: , Unknown dulaglutide (TRULICITY SUBCUTANEOUS), Inject subcutaneously one time a week. Mondays, Disp: , Rfl: , 10/24/2024 Current Facility-Administered Medications Medication Dose Route Frequency atorvastatin 20 mg tab(s) (LIPITOR) 20 mg ORAL AT BEDTIME midodrine 2.5 mg tab(s) (PROAMITINE) 2.5 mg ORAL DAILY furosemide 40 mg tab(s) (LASIX) 40 mg ORAL DAILY pantoprazole DR 40 mg tab(s) (PROTONIX) 40 mg ORAL DAILY (6 AM) PARoxetine 20 mg tab(s) (PAXIL) 20 mg ORAL DAILY valbenazine (more content not included)... Normal [facility] THERAPY NTon 11-08-2024 THERAPY NT HNO ID: [id number] Author: IRVING CRANE, PT Service: Physical Therapy Author Type: Physical Therapist Type: Therapy (PT/OT/Speech/Resp) Filed: 11/08/2024 09:19 Note Text: Physical Therapy Evaluation Summary SERVICE DATE: 11/08/2024 SERVICE TIME: 829 to 907 ROOM: [place] [address] PT 6 Clicks Score: 20 DISCHARGE RECOMMENDATIONS Home Anticipated Discharge Needs: Physical Assist at Home Physical Assist at Home for: Cleaning, Laundry, Meals, Transportation, Shopping Recommended Discharge Equipment: No equipment needs anticipated ASSESSMENT Response to Therapy Interventions: Good Participation in Activities, On-Track to Achieve Discharge Goals, Pain RN cleared session, VSS on RA. Pt educated on precautions, home safety, DME, HEP and role of PT in the hospital. Pt with no pain at rest that increases with transfers. Pt requiring VC only for log roll, able to stand from EOB with Min A d/t pain. Ambulated in monge with steady gait and no LOB, returned supine in bed with all needs met. Verbally reviewed stair negotiation with pt and spouse, one additional visit to trial next session. PRECAUTIONS Abdominal, Lines/Tubes/Drains Limit shearing forces to penis to allow adherence of skin graft. CURRENT HOSPITAL COURSE S/p Escutcheonectomy: Excision, excessive skin and subcutaneous tissue (includes lipectomy); other area; abdomen, infraumbilical panniculectomy ADJACENT TISSUE TRANSFER /REARRANGEMENT ABDOMEN 30.1-60.0 SQCM, SCROTOPLASTY COMPLICATED ADJACENT TISSUE TRANSFER / REARRANGEMENT ABDOMEN ADD'L < OR =30 SQCM SQCM PLASTIC OP ON PENIS TO CORRECT ANGULATION SPLIT-THICKNESS AUTOGRAFT MALE GENITALIA <100 SQ CM on 11/06/24 Relevant Past Medical History: GERD, T2DM, obesity, SHADE, myocardial bridge, orthostatic hypotension, CKD, anxiety HOME LIVING Patient Lives With: Family Assistance Available: 24-Hour Entry To Home: Stairs, With Rail Number Of Stairs Into Home: 5 Number Of Stairs To Bed/Bath: 0 Tub/Shower Type: walk in shower with stool Laundry: spouse completes Equipment Owned: Shower Chair, Walker- Wheeled PRIOR FUNCTIONAL LEVEL Within Functional Limits, Required Assistance Assistance Required With: Cleaning, Laundry, Meals, Shopping, Transportation Pt reports IND with ADLs, spouse completes IADLs, amb with no device, sleeps in standard bed, (-) falls, (-) driving SUBJECTIVE Agreeable to PT THERAPY DIAGNOSIS Reduced mobility-other, Abnormalities of gait and mobility-other, General symptoms and signs-other TREATMENT INTERVENTIONS Evaluation, Therapeutic Activity (47517), Gait Training (56804) Timed Code Treatment (minutes): 23 Skilled Treatment Time (minutes): 38 TRAINING AND EDUCATION PROVIDED Anatomy and Impact on Deficits, Bed Mobility, Benefits of In-Hospital Mobility, Discharge Planning, Disease Specific Education, Energy Conservation, Exercise Program, Expected Functional Level, Falls Prevention, Gait Pattern, Reduction of Deviations, Handout Issued, Home Safety, Patient Exercise/Therapy Program Support Needs, Precautions/Restricti ons, Positioning, Role of Physical Therapy, Transfers, Standing Balance, Treatment Protocol THERAPEUTIC SKILLS USED Activity Dosing, Assessment of Tolerance Including Vitals Response to Activity, Cues for Sequencing/Proper Technique for Activity, Cuing Verbal, Cuing Visual, Management of Critical Lines, Tubes and/or Drains, Movement Facilitation, Muscle Activation Facilitation, Physical Assist, Postural Alignment Correction, Task Analysis Learning, Teach-Back for Education FUNCTIONAL STATUS Bed Mobility Rolling: Stand By Assistance Supine To Sit: Verbal Cues Only Sit to Supine: Verbal Cues Only Scooting: Contact Guard Assistance Transfers Sit To Stand: Minimal Assistance Stand To Sit: Contact Guard Assistance Bed to Chair Gait Contact Guard Assistance Gait Device: IV Pole General Deviations/Observatio ns: Reyna decreased, Step length decreased Gait Distance (feet): 200ft Stairs Additional Information verbally reviewed at eval GOALS Patient will demonstrate progress with functional mobility to allow safe discharge to home with available support and/or physical assistance. Rehab Potential: Excellent Excellent Rehab Potential Due To: Good overall health status, Good support system/ coping skills, Good motivation, Current objective clinical presentation ACUTE CARE TREATMENT PLAN PT Frequency: One Additional Visit Treatment Interventions: Education, Self Care / Home Management, Energy Conservation Training, Strengthening, Joint Mobility, Functional Mobility Training Plan for Next Visit: Sit to Stand Transfers, Stair Training SIGNATURE: Irving Crane, PT PATIENT NAME: Steven Walden DATE: November 08, 2024 TIME: 9:[address] [facility] ANE POSTPROC EVALon 025 ANES POSTPROC EVAL HNO ID: [id number] Author: MAURICIO HENNESSY MD Service: ? Author Type: Anesthesiologist Type: Anesthesia Postprocedure Evaluation Filed: 11/07/2024 09:56 Note Text: POST ANESTHESIA EVALUATION NOTE : 1960 Procedure Summary Date: 11/06/24 Room / Location: [address] [facility] Anesthesia Start: 723 Anesthesia Stop: 1314 Procedures: Excision, excessive skin and subcutaneous tissue (includes lipectomy); abdomen, infraumbilical panniculectomy (Trunk) ADJACENT TISSUE TRANSFER / REARRANGEMENT ABDOMEN 30.1-60.0 SQCM (Abdomen) SCROTOPLASTY COMPLICATED (Bilateral: Scrotum) ADJACENT TISSUE TRANSFER / REARRANGEMENT ABDOMEN ADD'L < OR =30 SQCM SQCM (Abdomen) PLASTIC OP ON PENIS TO CORRECT ANGULATION (Penis) SPLIT-THICKNESS AUTOGRAFT MALE GENITALIA <100 SQ CM (Pending: Leg Upper) Diagnosis: Acquired buried penis (Acquired buried penis [N48.83]) Surgeons: Van Gillis MD; Abhi Galicia MD Responsible Provider: Mauricio Hennessy MD Anesthesia Type: general ASA Status: 3 Anesthesia Type: general Airway Type: ETT Last Vitals Vitals Value Taken Time BP 111/65 11/07/24 0726 Temp 36.4 ?C (97.5 ?F) 11/07/24 0726 Pulse 77 11/07/24 0726 Resp 20 11/07/24 0726 SpO2 97 % 11/07/24 0726 Post Anesthesia Patient Status Patient Evaluation: bedside. Anticipated Disposition: inpatient floor unplanned admission. Neurological Status: aware and responsive. Pulmonary Status: breathing comfortably on room air Airway Control: returned to baseline unsupported. Cardiovascular Status: stable. Pain Management: clinically adequate Postoperative Hydration: acceptable. Intraoperative Events: no significant anesthesia events Post Operative Nausea/Vomiting Status: no significant post operative nausea or vomiting Recommendation: continue current plan of care. Anesthesia Observations No Documentation SIGNATURE: Mauricio Hennessy MD PATIENT NAME: Steven Walden DATE: November 07, 2024 TIME: 9:55 AM CSN: [id number] Normal [facility] Basic metabolic 2000 panelon 11-07-2024 Anion gap [Moles/Vol] 15 mmol/L Normal 8-15 [facility] Comment on above: Order Comment: Speci men Type: BLOOD SPECIMENOrdering Facility: [facility] Address: [address] [place] [address] Performed By: #### 2 4321-2 ####[facility] LABCLIA [id number] [facility] [address] [address] [place] Calcium [Mass/Vol] 8.5 mg/dL Normal 8.5-10.2 [facility] Comment on above: Order Comment: Speci men Type: BLOOD SPECIMENOrdering Facility: [facility] Address: [address] [place] [address] Performed By: #### 2 4321-2 ####[facility] LABCLIA [id number] [facility] [address] [address] [place] Chloride [Moles/Vol] 105 mmol/L Normal 98-107 [facility] Comment on above: Order Comment: Speci men Type: BLOOD SPECIMENOrdering Facility: [facility] Address: [address] [place] [address] Performed By: #### 2 4321-2 ####[facility] LABCLIA [id number] [place] [id number] [place] CO2 [Moles/Vol] 17 mmol/L Low 22-30 [facility] Comment on above: Order Comment: Speci men Type: BLOOD SPECIMENOrdering Facility: [facility] Address: [address] [place] [address] Performed By: #### 2 4321-2 ####[facility] LABCLIA [id number] [place] [id number] [place] Creatinine [Mass/Vol] 2.10 mg/dL High 0.73-1.22 [facility] Comment on above: Order Comment: Speci men Type: BLOOD SPECIMENOrdering Facility: [facility] Address: [address] [place] [address] Performed By: #### 2 4321-2 ####[facility] LABCLIA [id number] [place] [address] [place] eGFRcr SerPlBld CKD-EPI 2020 35 mL/min/1.73m??? Low >=60 [facility] Comment on above: Order Comment: Batool carbajal Type: BLOOD SPECIMENOrdering Facility: [facility] Address: [address] [place] [address] Result Comment: Dulce mated Glomerular Filtration Rate (eGFR) is calculated using the 2020 CKD-EPI creatinine equation. This equation utilizes serum creatinine, sex, and age as parameters. The creatinine assay has traceable calibration to isotope dilution-mass spectrometry. Refer to KDIGO guidelines for clinical interpretation. In patients with unstable renal function, e.g. those with acute kidney injury, the eGFR may not accurately reflect actual GFR. Performed By: #### 2 4321-2 ####[facility] [id number] [place] [address] [place] Glucose [Mass/Vol] 183 mg/dL High 74-99 [facility] Comment on above: Order Comment: Batool carbajal Type: BLOOD SPECIMENOrdering Facility: [facility] Address: [address] [place] [address] Result Comment: The [place] Diabetes Association (ADA) provides guidance for cutoff [...] Standards of Medical Care in Diabetes 2016, [place] Diabetes Association. Diabetes Care. 2016.39(Suppl 1). Performed By: #### 2 4321-2 ####[facility] LABIA [id number] [place] [id number] [place] Potassium [Moles/Vol] 4.3 mmol/L Normal 3.7-5.1 [facility] Comment on above: Order Comment: Speci men Type: BLOOD SPECIMENOrdering Facility: [facility] Address: [address] [place] [address] Performed By: #### 2 4321-2 ####[facility] LABCLIA [id number] [place] [address] [place] Sodium [Moles/Vol] 137 mmol/L Normal 136-144 [facility] Comment on above: Order Comment: Speci men Type: BLOOD SPECIMENOrdering Facility: [facility] Address: [address] [place] [address] Performed By: #### 2 4321-2 ####[facility] LABCLIA [id number] [place] [address] [place] Urea nitrogen [Mass/Vol] 24 mg/dL Normal 9-24 [facility] Comment on above: Order Comment: Speci men Type: BLOOD SPECIMENOrdering Facility: [facility] Address: [address] [place] [address] Performed By: #### 2 4321-2 ####[facility] LABCLIA [id number] [place] [address] [place] CBC W Auto Differential pane l (Bld)on 11-07-2024 Basophils (Bld) [#/Vol] 0.04 10*3/uL Normal <0.11 [facility] Comment on above: Order Comment: Speci men Type: BLOOD SPECIMENOrdering Facility: [facility] Address: [address] [place] [address] Performed By: #### 5 7021-8 ####[facility] LABCLIA [id number] [place] [address] [place] Basophils/100 WBC (Bld) 0.3 % Normal [facility] Comment on above: Order Comment: Speci men Type: BLOOD SPECIMENOrdering Facility: [facility] Address: [address] [place] [address] Performed By: #### 5 7021-8 ####[facility] LABCLIA [id number] [address], [place] [address] [place] Differential cell count method Nom (Bld) Auto Normal [facility] Comment on above: Order Comment: Speci men Type: BLOOD SPECIMENOrdering Facility: [facility] Address: [address] [place] [address] Performed By: #### 5 7021-8 ####[facility] LABCLIA [id number] [address], [place] [address] [place] Eosinophils (Bld) [#/Vol] 10*3/uL Normal <0.46 [facility] Comment on above: Order Comment: Speci men Type: BLOOD SPECIMENOrdering Facility: [facility] Address: [address] [place] [address] Performed By: #### 5 7021-8 ####[facility] LABCLIA [id number] [address], [place] [address] [place] Eosinophils/100 WBC (Bld) 0.1 % Normal [facility] Comment on above: Order Comment: Speci men Type: BLOOD SPECIMENOrdering Facility: [facility] Address: [address] [place] [address] Performed By: #### 5 7021-8 ####[facility] LABCLIA [id number] [address], [facility] [place] Erythrocyte distribution width (RBC) [Ratio] 13.1 % Normal 11.5-15.0 [facility] Comment on above: Order Comment: Speci men Type: BLOOD SPECIMENOrdering Facility: [facility] Address: [address] [place] [address] Performed By: #### 5 7021-8 ####[facility] LABCLIA [id number] [place] [id number] [place] Hematocrit (Bld) [Volume fraction] 39.3 % Normal 39.0-51.0 [facility] Comment on above: Order Comment: Speci men Type: BLOOD SPECIMENOrdering Facility: [facility] Address: [address] [place] [address] Performed By: #### 5 7021-8 ####[facility] LABCLIA [id number] [place] [address] [place] Hemoglobin (Bld) [Mass/Vol] 13.5 g/dL Normal 13.0-17.0 [facility] Comment on above: Order Comment: Speci men Type: BLOOD SPECIMENOrdering Facility: [facility]. [facility] Address: [address] [place] [address] Performed By: #### 5 7021-8 ####[facility] LABCLIA [id number] [place] [address] [place] Immature granulocytes (Bld) [#/Vol] 0.07 10*3/uL Normal <0.10 [facility] Comment on above: Order Comment: Speci men Type: BLOOD SPECIMENOrdering Facility: [facility] Address: [address] [place] [address] Performed By: #### 5 7021-8 ####[facility] LABCLIA [id number] [place] [address] [place] Immature granulocytes/100 WBC (Bld) 0.5 % Normal [facility] Comment on above: Order Comment: Speci men Type: BLOOD SPECIMENOrdering Facility: [facility] Address: [address] [place] [address] Performed By: #### 5 7021-8 ####[facility] LABCLIA [id number] [place] [address] [place] Lymphocytes (Bld) [#/Vol] 1.56 10*3/uL Normal 1.00-4.00 [facility] Comment on above: Order Comment: Speci men Type: BLOOD SPECIMENOrdering Facility: [facility] Address: [address] [place] [address] Performed By: #### 5 7021-8 ####[facility] LABCLIA [id number] [place] [address] [place] Lymphocytes/100 WBC (Bld) 10.8 % Normal [facility] Comment on above: Order Comment: Speci men Type: BLOOD SPECIMENOrdering Facility: [facility] Address: [address] [place] [address] Performed By: #### 5 7021-8 ####[facility] LABCLIA [id number] [place] [address] [place] MCH (RBC) [Entitic mass] 30.2 pg Normal 26.0-34.0 [facility] Comment on above: Order Comment: Speci men Type: BLOOD SPECIMENOrdering Facility: [facility] Address: [address] [place] [address] Performed By: #### 5 7021-8 ####[facility] LABIA [id number] [place] [address] [place] MCHC (RBC) [Mass/Vol] 34.4 g/dL Normal 30.5-36.0 [facility] Comment on above: Order Comment: Speci men Type: BLOOD SPECIMENOrdering Facility: [facility] Address: [address] [place] [address] Performed By: #### 5 7021-8 ####[facility] LABCLIA [id number] [place] [id number] [place] MCV (RBC) [Entitic vol] 87.9 fL Normal 80.0-100.0 [facility] Comment on above: Order Comment: Speci men Type: BLOOD SPECIMENOrdering Facility: [facility] Address: [address] [place] [address] Performed By: #### 5 7021-8 ####[facility] LABCLIA [id number] [facility] [address] [place] [address] [place] Monocytes (Bld) [#/Vol] 1.07 10*3/uL High <0.87 [facility] Comment on above: Order Comment: Speci men Type: BLOOD SPECIMENOrdering Facility: [facility] Address: [address] [place] [address] Performed By: #### 5 7021-8 ####[facility] LABCLIA [id number] [facility] [address] [place] [address] [place] Monocytes/100 WBC (Bld) 7.4 % Normal [facility] Comment on above: Order Comment: Speci men Type: BLOOD SPECIMENOrdering Facility: [facility] Address: [address] [place] [address] Performed By: #### 5 7021-8 ####[facility] LABCLIA [id number] [facility] [address], [place] [address] [place] Neutrophils (Bld) [#/Vol] 11.62 10*3/uL High 1.45-7.50 [facility] Comment on above: Order Comment: Speci men Type: BLOOD SPECIMENOrdering Facility: [facility] Address: [address] [place] [address] Performed By: #### 5 7021-8 ####[facility] LABCLIA [id number] [facility] [address], [facility] [place] Neutrophils/100 WBC (Bld) 80.9 % Normal [facility] Comment on above: Order Comment: Speci men Type: BLOOD SPECIMENOrdering Facility: [facility] Address: [address] [place] [address] Performed By: #### 5 7021-8 ####[facility] LABCLIA [id number] [facility] [address] [place] [address] [place] Nucleated RBC (Bld) [#/Vol] 10*3/uL Normal <0.01 [facility] Comment on above: Order Comment: Speci men Type: BLOOD SPECIMENOrdering Facility: [facility] Address: [address] [place] [address] Performed By: #### 5 7021-8 ####[facility] LABIA [id number] [place] [address] [place] Nucleated RBC/100 WBC (Bld) [Ratio] 0.0 /[address] [facility] Comment on above: Order Comment: Speci men Type: BLOOD SPECIMENOrdering Facility: [facility] Address: [address] [place] [address] Performed By: #### 5 7021-8 ####[facility] LABIA [id number] [place] [address] [place] Platelet mean volume (Bld) [Entitic vol] 10.3 fL Normal 9.0-12.7 [facility] Comment on above: Order Comment: Speci men Type: BLOOD SPECIMENOrdering Facility: [facility] Address: [address] [place] [address] Performed By: #### 5 7021-8 ####[facility] LABIA [id number] [place] [address] [place] Platelets (Bld) [#/Vol] 227 10*3/uL Normal 150-400 [facility] Comment on above: Order Comment: Speci men Type: BLOOD SPECIMENOrdering Facility: [facility] Address: [address] [place] [address] Performed By: #### 5 7021-8 ####[facility] LABIA [id number] [place] [address] [place] RBC (Bld) [#/Vol] 4.47 10*6/uL Normal 4.20-6.00 [facility] Comment on above: Order Comment: Speci men Type: BLOOD SPECIMENOrdering Facility: [facility] Address: [address] [place] [address] Performed By: #### 5 7021-8 ####[facility] LABIA [id number] [address] [address] [place] WBC (Bld) [#/Vol] 14.38 10*3/uL High 3.70-11.00 [facility] Comment on above: Order Comment: Speci men Type: BLOOD SPECIMENOrdering Facility: 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 Pain relatively controlled. Has not ambulated yet. MEDICATIONS: Current Facility-Administered Medications Medication Dose Route Frequency atorvastatin 20 mg tab(s) (LIPITOR) 20 mg ORAL AT BEDTIME midodrine 2.5 mg tab(s) (PROAMITINE) 2.5 mg ORAL DAILY furosemide 40 mg tab(s) (LASIX) 40 mg ORAL DAILY pantoprazole DR 40 mg tab(s) (PROTONIX) 40 mg ORAL DAILY (6 AM) PARoxetine 20 mg tab(s) (PAXIL) 20 mg ORAL DAILY QUEtiapine 200 mg tab(s) (SEROquel) 200 mg ORAL AT BEDTIME valbenazine cap 60 mg (INGREZZA) 60 mg ORAL DAILY hydrOXYzine pamoate 50 mg cap(s) (VISTARIL) 50 mg ORAL AT BEDTIME PRN lactated ringers iv infusion 125 mL/hr INTRAVENOUS CONTINUOUS HYDROmorphone 0.2 mg injection (DILAUDID) 0.2 mg INTRAVENOUS q 4 H PRN oxyCODONE IR 5 mg tab(s) (ROXICODONE) 5 mg ORAL q 6 H PRN acetaminophen 1,000 mg tab(s) (TYLENOL) 1,000 mg ORAL q 6 H calcium carbonate 500 mg chewable tab(s) (TUMS) 500 mg ORAL TID PRN simethicone, chewable 80 mg tab(s) (MYLICON) 80 mg ORAL QID PRN prochlorperazine 5 mg injection (COMPAZINE) 5 mg INTRAVENOUS q 6 H PRN ondansetron (PF) 4 mg injection (ZOFRAN) 4 mg INTRAVENOUS q 6 H PRN phenol 1 spray (CHLORASEPTIC) 1 spray MUCOUS MEMBRANE (TOPICAL MOUTH AND THROAT) q 2 H PRN lidocaine urojet 2 % 11 mL topical gel (GLYDO) 11 mL MUCOUS MEMBRANE TID PRN polyethylene glycol 3350 17 g packet 17 g ORAL DAILY PRN docusate sodium 100 mg cap(s) (COLACE) 100 mg ORAL BID trospium 20 mg tab(s) (SANCTURA) 20 mg ORAL BID PRN melatonin 6 mg tab(s) 6 mg ORAL AT BEDTIME PRN gabapentin 300 mg cap(s) (NEURONTIN) 300 mg ORAL AT BEDTIME methocarbamol 500 mg tab(s) (ROBAXIN) 500 mg ORAL TID dextrose 15 gram/32 mL 15 g (TRUEPLUS) 15 g ORAL PRN Or glucagon 1 mg injection 1 mg INTRAMUSCULAR PRN Or dextrose 10% iv bolus 12.5 g INTRAVENOUS PRN insulin lispro injection (rapid acting) (ADMElog) SUBCUTANEOUS w MEALS heparin 5,000 Units injection 5,000 Units SUBCUTANEOUS q 12 H ferrous sulfate 325 mg tab(s) 325 mg ORAL BID polyvinyl alcohol-povidone 1.4-0.6 % 1 drop (REFRESH) 1 drop BOTH EYES PRN benzocaine-menthol 1 lozenge (CHLORASEPTIC) 1 lozenge MUCOUS MEMBRANE (TOPICAL MOUTH AND THROAT) q 2 H PRN QUEtiapine 25 mg tab(s) (SEROquel) 25 mg ORAL PRN PHYSICAL EXAM: BP 124/69 Pulse 76 Temp (Src) 97.5 (Axillary) Resp 20 Ht 6' 3 (1.91m) Wt 323 lb (146.5kg) SpO2 95% BMI 40.37 kg/(m2). O2 Therapy: Room Air General: NAD Pulm: normal respiratory effort on RA Groin: Penile dressing in place. Carballo in place. 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 Surgical site(s)/Wound care: Wound care: Penis: Maintain adpatic, baci, sameer, coban wrap around penis. Do not soil. Right Thigh: Maintain xeroform, tegaderm. Expect oozing from donor site. Can pad with ABD, kym wrap. Activity: Limit shearing forces to penis to allow adherence of skin graft. Ok to ambulate - Ok for discharge from PRS perspective. F[facility]. Assessment and plan discussed with staff physician, Dr. Galicia. Jerome Knight MD Plastic Surgery Resident [phone] After 6 pm and on-weekends, please page [phone] (on-call plastic surgery) Normal [facility] NUTRITIONon 11-07-2024 NUTRITION HNO ID: [id number] Author: MARLENE ROBBINS RD Service: Nutrition Therapy Author Type: Registered Dietitian Type: Nutrition Filed: 11/07/2024 11:39 Note Text: NUTRITION THERAPY SCREEN NOTE SERVICE DATE: 11/07/2024 SERVICE TIME: Start Time: 938 Care Plan: Continue current diet Supplements: Ensure Max Refer to: Med Peds to Follow Monitor and Evaluation: Meet greater than 75% of estimated needs Intake History: Nutrition Intake Prior to Admission: Greater than 75% estimated energy needs greater than or equal to 1 month Diet Orders (From admission, onward) Start Ordered 11/07/24 1015 SUPPLEMENT/SNACK PROVIDED START NOW Question Answer Comment Supplement 1 (19 years and up) ENSURE MAX STRAWBERRY Supplement 1 Frequency TWICE DAILY WITH MEALS 11/07/24 1010 11/07/24 0700 DIET CARBOHYDRATE CONTROLLED START NOW Question: Carbohydrate Control Answer: CONSISTENT CARBOHYDRATE 11/07/24 0650 Anthropometrics: Height: 190.5 cm (6' 3 ) Weight: (!) 146.5 kg (323 lb) Usual Weight: 142.9 kg (315 lb) 11/03/2023 Usual Weight Obtained From: Care Everywhere Weight Change: Weight gain Lines, Drains, and Airways Drain Duration Drain/Tube 11/06/24 0943 [facility] Right Lower Quadrant Abdomen Drain #1 1 day Drain/Tube 11/06/24 0944 [facility] Left Lower Quadrant Abdomen Drain #2 1 day Indwelling Urinary Catheter 11/06/24 1249 [facility] Carballo 14 Fr <1 day MNT Billing: $ Routine Care : 1 unit Time Spent (mins): 2 SIGNATURE: Marlene Robbins RD PATIENT NAME: Steven Walden DATE: November 07, 2024 TIME: 11:[address] [facility] ANES PRE-OPon 11-06-2024 ANES PRE-OP HNO ID: [id number] Author: MAURICIO HENNESSY MD Service: ? Author Type: Anesthesiologist Type: Anesthesia Preprocedure Evaluation Filed: 11/06/2024 07:12 Note Text: ANESTHESIOLOGY DAY OF SURGERY NOTE : 1960 Procedure Information Date/Time: 11/06/2430 Procedures: Excision, excessive skin and subcutaneous tissue (includes lipectomy); abdomen, infraumbilical panniculectomy (Trunk) ADJACENT TISSUE TRANSFER / REARRANGEMENT ABDOMEN 30.1-60.0 SQCM (Abdomen) SCROTOPLASTY COMPLICATED (Bilateral: Scrotum) ADJACENT TISSUE TRANSFER / REARRANGEMENT ABDOMEN ADD'L < OR =30 SQCM SQCM (Abdomen) PLASTIC OP ON PENIS TO CORRECT ANGULATION (Penis) SPLIT-THICKNESS AUTOGRAFT MALE GENITALIA <100 SQ CM (Pending: Leg Upper) [facility] Surgeons: Van Gillis MD; Abhi Galicia MD Estimated body mass index is 40.37 kg/m? as calculated from the following: Height as of this encounter: 190.5 cm (6' 3 ). Weight as of this encounter: 146.5 kg (323 lb). Most recent hematocrit and potassium results: Hematocrit 43.5 10/23/2024 Potassium 3.6 10/23/2024 Relevant Problems ANESTHESIA (+) SHADE (obstructive sleep apnea) CARDIO (+) Ascending aorta dilatation ENDO (+) Type 2 diabetes mellitus with kidney complication, with long-term current use of insulin (HCC) GI (+) GERD (gastroesophageal reflux disease) -RENAL (+) CKD (chronic kidney disease) stage 4, GFR 15-29 ml/min (HCC) (+) Type 2 diabetes mellitus with kidney complication, with long-term current use of insulin (HCC) PULMONARY (+) SHADE (obstructive sleep apnea) I - PHYSICAL EVALUATION AIRWAY Patient intubated: No. Tracheostomy tube not present Mallampati: IV. TM distance: >3 FB. Neck ROM: full ROM without neurological symptoms. Mouth opening: adequate. Short neck: yes. Thick neck: yes Wagner present: no II - ANESTHESIA PLAN ASA Score: 3 Anesthetic Plan: general Airway type: ETT Beta Sapna Monitoring Plan Post Procedure Analgesic Plan Informed Consent Anesthetic risks, benefits, alternatives, personnel and consent discussed: yes. Patient / Responsible Alliance Party agrees to proceed: yes Patient / Surrogate agrees to blood products: Yes Vitals Value Taken Time BP 120/76 11/06/24 0606 Pulse 77 11/06/24 0606 Resp 18 11/06/24 0606 Temp 36.6 ?C (97.9 ?F) 11/06/24 0606 SpO2 97 % 11/06/24 0606 Facility-Administered Medications as of 11/06/2024 Medication Dose Route Frequency lidocaine (PF) 10 mg/mL (1 %) 1-2 mg injection (XYLOCAINE) 0.1-0.2 mL INTRADERMAL PRN Or lidocaine 1% 0.25 mL subcutaneous j-tip syringe (XYLOCAINE) 0.25 mL SUBCUTANEOUS PRN lactated ringers iv infusion 5-30 mL/hr INTRAVENOUS CONTINUOUS NaCl 0.9% iv flush bag 20 mL INTRAVENOUS PRN ceFAZolin 3 g in D5W 100 mL (ANCEF) 3 g INTRAVENOUS Pre-Op Once Outpatient Medications as of 11/06/2024 Medication Sig Amoxicillin 500 mg tablet Take 500 mg by mouth two times a day. hydrOXYzine pamoate (VISTARIL) 50 mg capsule Take 50 mg by mouth. PARoxetine (PAXIL) 20 mg tablet Take 20 mg by mouth. allopurinol (ZYLOPRIM) 100 mg tablet Take 100 mg by mouth once daily. folic acid 1 mg tablet Take 1 mg by mouth once daily. furosemide (LASIX) 40 mg tablet Take 40 mg by mouth once daily. omeprazole (PRILOSEC) 40 mg capsule Take 40 mg by mouth once daily. midodrine (PROAMATINE) 2.5 mg tablet Take 2.5 mg by mouth once daily. thiamine (VITAMIN B-1) 100 mg tablet Take 100 mg by mouth once daily. potassium chloride ER (KLOR-CON) 20 mEq tablet Take 20 mEq by mouth once daily. QUEtiapine (SEROQUEL) 200 mg tablet Take 200 mg by mouth daily at bedtime. ferrous sulfate (IRON) 325 mg (65 mg iron) tablet Take 325 mg by mouth once daily. simethicone/sod bicarb/tta (SODIUM BICARB-TARTARIC ACID ORAL) Take 1,300 mg by mouth once daily. atorvastatin (LIPITOR) 20 mg tablet Take 20 mg by mouth once daily. magnesium oxide 400 mg magnesium tab Take 400 mg by mouth once daily. valbenazine (INGREZZA) 60 mg capsule Take 60 mg by mouth once daily. insulin regular, human (HUMULIN R U-500, CONC, INSULIN SUBCUTANEOUS) Inject subcutaneously. Sliding scale 30 to 50 units QUEtiapine (SEROQUEL) 25 mg tablet Take 25 mg by mouth daily at bedtime. dulaglutide (TRULICITY SUBCUTANEOUS) Inject subcutaneously one time a week. Mondays I have interviewed and examined the patient. I have reviewed the medical record and/or the pre-anesthesia evaluation, pertinent labs, and test results. This contains updated information obtained within 48 hours of Surgery/Procedure. SIGNATURE: Mauricio Hennessy MD PATIENT NAME: Steven Walden DATE: November 06, 2024 TIME: 7:10 AM CSN: [id number] Normal [facility] BRIEF OP NOTon 11-06-2024 BRIEF OP NOT HNO ID: [id number] Author: BECKY FARRAR MD Service: Plastic Surgery Author Type: Resident Type: Brief Op Note Filed: 11/06/2024 13:41 Note Text: PLASTIC SURGERY - BRIEF OP NOTE Patient Name: Steven Walden Log ID: [id number] Surgery Date: 11/06/2024 Incision/Procedure Start Time: 8:52 AM Incision Close/Procedure End Time: 12:37 PM Surgeon(s) and Assurance Analyst(s): Surgeons and Role: Panel 1: * Van Gillis MD - Primary * Sarah Fish MD - Resident - Assisting * Eric Boggs MD - Fellow Panel 2: * Abhi Galicia MD - Primary * Becky Farrar MD - Resident - Assisting * Jerome Knight MD - Resident - Assisting * Libra Hernandez DO - Resident - Assisting Procedure(s) (LRB): Procedure(s): Excision, excessive skin and subcutaneous tissue (includes lipectomy); abdomen, infraumbilical panniculectomy ADJACENT TISSUE TRANSFER / REARRANGEMENT ABDOMEN 30.1-60.0 SQCM SCROTOPLASTY COMPLICATED ADJACENT TISSUE TRANSFER / REARRANGEMENT ABDOMEN ADD'L < OR =30 SQCM SQCM PLASTIC OP ON PENIS TO CORRECT ANGULATION SPLIT-THICKNESS AUTOGRAFT MALE GENITALIA <100 SQ CM Anesthesia: General Findings: STSG to penis from Right thigh, 15x7cm For details, see operative dictation. 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 Basic metabolic 2000 panelon 11-06-2024 Anion gap [Moles/Vol] 16 mmol/L High 8-15 [facility] Comment on above: Order Comment: Speci men Type: BLOOD SPECIMENOrdering Facility: [facility] Address: [address] [place] [address] Performed By: #### 2 4321-2 ####[facility] LABCLIA [id number] [place] [address] [place] Calcium [Mass/Vol] 8.4 mg/dL Low 8.5-10.2 [facility] Comment on above: Order Comment: Speci men Type: BLOOD SPECIMENOrdering Facility: [facility] Address: [address] [place] [address] Performed By: #### 2 4321-2 ####[facility] LABCLIA [id number] [place] [id number] [place] Chloride [Moles/Vol] 106 mmol/L Normal 98-107 [facility] Comment on above: Order Comment: Speci men Type: BLOOD SPECIMENOrdering Facility: [facility] Address: [address] [place] [address] Performed By: #### 2 4321-2 ####[facility] LABCLIA [id number] [place] [id number] [place] CO2 [Moles/Vol] 18 mmol/L Low 22-30 [facility] Comment on above: Order Comment: Speci men Type: BLOOD SPECIMENOrdering Facility: [facility] Address: [address] [place] [address] Performed By: #### 2 4321-2 ####[facility] LABCLIA [id number] [place] [id number] [place] Creatinine [Mass/Vol] 2.13 mg/dL High 0.73-1.22 [facility] Comment on above: Order Comment: Speci men Type: BLOOD SPECIMENOrdering Facility: [facility] Address: [address] [place] [address] Performed By: #### 2 4321-2 ####[facility] LABIA [id number] [place] [address] [place] eGFRcr SerPlBld CKD-EPI 2020 34 mL/min/1.73m??? Low >=60 [facility] Comment on above: Order Comment: Batool carbajal Type: BLOOD SPECIMENOrdering Facility: [facility] Address: [address] [place] [address] Result Comment: Dulce mated Glomerular Filtration Rate (eGFR) is calculated using the 2020 CKD-EPI creatinine equation. This equation utilizes serum creatinine, sex, and age as parameters. The creatinine assay has traceable calibration to isotope dilution-mass spectrometry. Refer to KDIGO guidelines for clinical interpretation. In patients with unstable renal function, e.g. those with acute kidney injury, the eGFR may not accurately reflect actual GFR. Performed By: #### 2 4321-2 ####[facility] LABIA [id number] [place] [address] [place] Glucose [Mass/Vol] 213 mg/dL High 74-99 [facility] Comment on above: Order Comment: Batool carbajal Type: BLOOD SPECIMENOrdering Facility: [facility] Address: [address] [place] [address] Result Comment: The [place] Diabetes Association (ADA) provides guidance for cutoff [...] Standards of Medical Care in Diabetes 2016, [place] Diabetes Association. Diabetes Care. 2016.39(Suppl 1). Performed By: #### 2 4321-2 ####[facility] LABCLIA [id number] [place] [id number] [place] Potassium [Moles/Vol] 4.3 mmol/L Normal 3.7-5.1 [facility] Comment on above: Order Comment: Speci men Type: BLOOD SPECIMENOrdering Facility: [facility] Address: [address] [place] [address] Performed By: #### 2 4321-2 ####[facility] LABCLIA [id number] [place] [address] [place] Sodium [Moles/Vol] 140 mmol/L Normal 136-144 [facility] Comment on above: Order Comment: Speci men Type: BLOOD SPECIMENOrdering Facility: [facility] Address: [address] [place] [address] Performed By: #### 2 4321-2 ####[facility] LABIA [id number] [place] [address] [place] Urea nitrogen [Mass/Vol] 29 mg/dL High 9-24 [facility] Comment on above: Order Comment: Speci men Type: BLOOD SPECIMENOrdering Facility: [facility] Address: [address] [place] [address] Performed By: #### 2 4321-2 ####[facility] LABIA [id number] [place] [address] [place] CBC W Auto Differential pane l (Bld)on 11-06-2024 Basophils (Bld) [#/Vol] 10*3/uL Normal <0.11 [facility] Comment on above: Order Comment: Speci men Type: BLOOD SPECIMENOrdering Facility: [facility] Address: [address] [place] [address] Performed By: #### 5 7021-8 ####[facility] LABIA [id number] [place] [address] [place] Basophils/100 WBC (Bld) 0.2 % Normal [facility] Comment on above: Order Comment: Speci men Type: BLOOD SPECIMENOrdering Facility: [facility] Address: [address] [place] [address] Performed By: #### 5 7021-8 ####[facility] LABCLIA [id number] [place] [address] [place] Differential cell count method Nom (Bld) Auto Normal [facility] Comment on above: Order Comment: Speci men Type: BLOOD SPECIMENOrdering Facility: [facility] Address: [address] [place] [address] Performed By: #### 5 7021-8 ####[facility] LABCLIA [id number] [place] [address] [place] Eosinophils (Bld) [#/Vol] 10*3/uL Normal <0.46 [facility] Comment on above: Order Comment: Speci men Type: BLOOD SPECIMENOrdering Facility: [facility] Address: [address] [place] [address] Performed By: #### 5 7021-8 ####[facility] LABCLIA [id number] [place] [address] [place] Eosinophils/100 WBC (Bld) 0.2 % Normal [facility] Comment on above: Order Comment: Speci men Type: BLOOD SPECIMENOrdering Facility: [facility] Address: [address] [place] [address] Performed By: #### 5 7021-8 ####[facility] LABCLIA [id number] [place] [address] [place] Erythrocyte distribution width (RBC) [Ratio] 13.1 % Normal 11.5-15.0 [facility] Comment on above: Order Comment: Speci men Type: BLOOD SPECIMENOrdering Facility: [facility] Address: [address] [place] [address] Performed By: #### 5 7021-8 ####[facility] LABCLIA [id number] [place] [address] [place] Hematocrit (Bld) [Volume fraction] 39.6 % Normal 39.0-51.0 [facility] Comment on above: Order Comment: Speci men Type: BLOOD SPECIMENOrdering Facility: [facility] Address: [address] [place] [address] Performed By: #### 5 7021-8 ####[facility] LABCLIA [id number] [place] [address] [place] Hemoglobin (Bld) [Mass/Vol] 13.7 g/dL Normal 13.0-17.0 [facility] Comment on above: Order Comment: Speci men Type: BLOOD SPECIMENOrdering Facility: [facility] Address: [address] [place] [address] Performed By: #### 5 7021-8 ####[facility] LABIA [id number] [place] [address] [place] Immature granulocytes (Bld) [#/Vol] 0.06 10*3/uL Normal <0.10 [facility] Comment on above: Order Comment: Speci men Type: BLOOD SPECIMENOrdering Facility: [facility] Address: [address] [place] [address] Performed By: #### 5 7021-8 ####[facility] LABCLIA [id number] [place] [address] [place] Immature granulocytes/100 WBC (Bld) 0.5 % Normal [facility] Comment on above: Order Comment: Speci men Type: BLOOD SPECIMENOrdering Facility: [facility] Address: [address] [place] [address] Performed By: #### 5 7021-8 ####[facility] LABCLIA [id number] [place] [address] [place] Lymphocytes (Bld) [#/Vol] 1.10 10*3/uL Normal 1.00-4.00 [facility] Comment on above: Order Comment: Speci men Type: BLOOD SPECIMENOrdering Facility: [facility] Address: [address] [place] [address] Performed By: #### 5 7021-8 ####[facility] LABIA [id number] [place] [address] [place] Lymphocytes/100 WBC (Bld) 8.6 % Normal [facility] Comment on above: Order Comment: Speci men Type: BLOOD SPECIMENOrdering Facility: [facility] Address: [address] [place] [address] Performed By: #### 5 7021-8 ####[facility] LABIA [id number] [place] [address] [place] MCH (RBC) [Entitic mass] 30.1 pg Normal 26.0-34.0 [facility] Comment on above: Order Comment: Speci men Type: BLOOD SPECIMENOrdering Facility: [facility] Address: [address] [place] [address] Performed By: #### 5 7021-8 ####[facility] LABIA [id number] [place] [address] [place] MCHC (RBC) [Mass/Vol] 34.6 g/dL Normal 30.5-36.0 [facility] Comment on above: Order Comment: Speci men Type: BLOOD SPECIMENOrdering Facility: [facility] Address: [address] [place] [address] Performed By: #### 5 7021-8 ####[facility] LABIA [id number] [place] [address] [place] MCV (RBC) [Entitic vol] 87.0 fL Normal 80.0-100.0 [facility] Comment on above: Order Comment: Speci men Type: BLOOD SPECIMENOrdering Facility: [facility] Address: [address] [place] [address] Performed By: #### 5 7021-8 ####[facility] LABCLIA [id number] [facility] [address], [place] [address] [place] Monocytes (Bld) [#/Vol] 0.31 10*3/uL Normal <0.87 [facility] Comment on above: Order Comment: Speci men Type: BLOOD SPECIMENOrdering Facility: [facility] Address: [address] [place] [address] Performed By: #### 5 7021-8 ####[facility] LABCLIA [id number] [address], [place] [address] [place] Monocytes/100 WBC (Bld) 2.4 % Normal [facility] Comment on above: Order Comment: Speci men Type: BLOOD SPECIMENOrdering Facility: [facility] Address: [address] [place] [address] Performed By: #### 5 7021-8 ####[facility] LABCLIA [id number] [place] [address] [place] Neutrophils (Bld) [#/Vol] 11.35 10*3/uL High 1.45-7.50 [facility] Comment on above: Order Comment: Speci men Type: BLOOD SPECIMENOrdering Facility: [facility] Address: [address] [place] [address] Performed By: #### 5 7021-8 ####[facility] LABCLIA [id number] [place] [address] [place] Neutrophils/100 WBC (Bld) 88.1 % Normal [facility] Comment on above: Order Comment: Speci men Type: BLOOD SPECIMENOrdering Facility: [facility] Address: [address] [place] [address] Performed By: #### 5 7021-8 ####[facility] LABCLIA [id number] [address], [facility] [place] Nucleated RBC (Bld) [#/Vol] 10*3/uL Normal <0.01 [facility] Comment on above: Order Comment: Speci men Type: BLOOD SPECIMENOrdering Facility: [facility] Address: [address] [place] [address] Performed By: #### 5 7021-8 ####[facility] LABCLIA [id number] [place] [address] [place] Nucleated RBC/100 WBC (Bld) [Ratio] 0.0 /[address] [facility] Comment on above: Order Comment: Speci men Type: BLOOD SPECIMENOrdering Facility: [facility] Address: [address] [place] [address] Performed By: #### 5 7021-8 ####[facility] LABIA [id number] [place] [address] [place] Platelet mean volume (Bld) [Entitic vol] 10.2 fL Normal 9.0-12.7 [facility] Comment on above: Order Comment: Speci men Type: BLOOD SPECIMENOrdering Facility: [facility] Address: [address] [place] [address] Performed By: #### 5 7021-8 ####[facility] LABIA [id number] [place] [address] [place] Platelets (Bld) [#/Vol] 194 10*3/uL Normal 150-400 [facility] Comment on above: Order Comment: Speci men Type: BLOOD SPECIMENOrdering Facility: [facility] Address: [address] [place] [address] Performed By: #### 5 7021-8 ####[facility] LABIA [id number] [place] [address] [place] RBC (Bld) [#/Vol] 4.55 10*6/uL Normal 4.20-6.00 [facility] Comment on above: Order Comment: Speci men Type: BLOOD SPECIMENOrdering Facility: [facility] Address: [address] [place] [id number] Performed By: #### 5 7021-8 ####[facility] [id number] [place] [id number] [place] WBC (Bld) [#/Vol] 12.86 10*3/uL High 3.70-11.00 [facility] Comment on above: Order Comment: Speci men Type: BLOOD SPECIMENOrdering Facility: [facility] Address: [address] [place] [address] Performed By: #### 5 7021-8 ####[facility] [id number] [place] [id number] [facility] [place] OPERATIVE NOon 11-06-2024 OPERATIVE NO HNO ID: [id number] Author: VAN GILLIS MD Service: Urology Author Type: Physician Type: Operative Report Filed: 11/06/2024 15:45 Note Text: OPERATIVE/PROCEDURE REPORT LOG ID: [id number] Surgery/Procedure Date: 11/06/2024 Incision/Procedure Start Time: 8:52 AM Incision Close/Procedure End Time: 11:57 AM (urology portion) Surgeon(s)/Procedural ist(s) and Assurance Analyst(s): * Van Gillis MD - Primary * Sarah Fish MD - Resident - Assisting * Eric Boggs MD - Fellow Procedure(s): Escutcheonectomy: Excision, excessive skin and subcutaneous tissue (includes lipectomy); other area (CPT 23437) Complex wound closure of escutcheonectomy defect: Adjacent tissue transfer or rearrangement, any area; defect 30.1 sq cm to 60.0 sq cm (CPT 14281) Adjacent tissue transfer or rearrangement, any area; each additional 30.0 sq cm, or part thereof (CPT 80518 x 14) Excision of non-viable penile skin: Lysis or excision of penile post-circumcision adhesions (CPT 40507) Resection scrotum (CPT 03220) Penopubic junction fixation with creation of penopubic and penoscrotal angle: Plastic operation on penis to correct angulation (CPT 13455) Split thickness skin graft harvest from the thigh and application was performed by plastic surgery and will be dictated separately. 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 Procedure Findings: - Inflamed cicatrix with inability to deliver glans - Poorly demarcated garcia due to inflammation and scarring with inverted glans appearance; coronal tissue was excised and sent to pathology - 10 x 30 cm escutcheonectomy (defect 12 x 38 cm) - Tension-free closure of escutcheonectomy - Glans pexy after removal of excessive coronal tissue - Complex scrotoplasty with removal of redundant tissue at penoscrotal junction Procedure Details: The patient was correctly identified and the operative plan was confirmed with the patient and the operative team. A weight appropriate dose of prophylactic antibiotics (3g cefazolin) was administered intravenously prior to the procedure and sequential compression devices were applied to the lower extremities and activated prior to induction of anesthesia. The patient was placed in the supine position. The table was flexed slightly. General anesthesia was induced. All pressure points were padded per protocol and the operative area was prepped and draped in the standard sterile fashion. We began by performing a dorsal slit in order to deliver the glans and distal penile shaft. The garcia was poorly demarcated due to chronic inflammation and, given the appearance, was partially excised for frozen section to confirm there was no malignancy (the frozen was ultimately negative). We then placed a 0-silk stay suture through the glans and secured it with a hemostat. Next, we turned our attention to the escutcheonectomy. The proposed area of excision was marked out with a surgical marker: horizontally beneath the pannus, approximately ~2cm inferior to natural abdominal crease, and then a W-shaped incision extending inferomedially on each side toward the penis, terminating ~2cm superior to the penile base. The incisions were made with a 10 blade and carried deeply using electrocautery with care taken not to undermine the skin edges or to extend too deeply and risk injuring nearby structures. Once we achieved the appropriate depth, electrocautery was used to completely excise the escutcheon which contained skin and subcutaneous tissue, which was sent to pathology. The dimensions of the specimen were 30cm x 10cm in largest dimension without any tension on the skin edges. The remaining defect in skin and subcutaneous tissue measured at 38cm x 12cm. We used electrocautery to achieve hemostasis thereafter, again being careful not to avoid the spermatic cords bilaterally as well as the dorsal penile neurovascular bundle. We also irrigated the defect thereafter. Next, we began the penopubic junction fixation in order to recreate the penopubic angle. We used 0-PDS sutures x3 plicate and fix the deep dermis of the inferior skin flap to the fascia overlying the pubis (superficial to the periosteum) and then to the superior skin flap. Once this was completed the penopubic angle was re-created. Two 10Fr LINDA drains were placed bilaterally through separate stab incisions laterally to our initial incision. These were secured to the skin with 0-silk suture. We then began our complex wound closure of the escutcheonectomy defect which was 38 cm x 12 cm. The skin and subcutaneous tissues were reconfigu (more content not included)... Normal [facility] OPERATIVE NO HNO ID: [id number] Author: ABHI GALICIA MD Service: Plastic Surgery Author Type: Physician Type: Operative Report Filed: 11/07/2024 09:45 Note Text: PLASTIC SURGERY OPERATIVE REPORT Patient Name: Steven Walden Date of Surgery: 11/06/2024 Operating room location: Main Incision/Procedure Start Time: 8:52 AM Incision Close/Procedure End Time: 12:37 PM Preoperative Diagnosis: Acquired buried penis Operation: Split-thickness skin grafting shaft of the penis Postoperative Diagnosis: Same Surgeon(s) and Assurance Analyst(s). Surgeons and Role: Panel 1: * Van Gillis MD - Primary * Sarah Fish MD - Resident - Assisting * Eric Boggs MD - Fellow Panel 2: * Abhi Galicia MD - Primary * Becky Farrar MD - Resident - Assisting * Jerome Knight MD - Resident - Assisting * Libra Hernandez DO - Resident - Assisting Anesthesia: General Operative Indications: This is a 64-year-old male with acquired buried penis. Urology is planning escutcheonectomy and excision of nonviable penile skin, and have seek their assistance for skin grafting the penis. Discussed the nature of surgery, its benefits, risks, post-operative course and potential complications, alternatives with the patient, including the possibility of further surgery. All questions were answered . Patient expressed understanding and wishes to proceed with surgery. Informed consent has been obtained. Description of procedure: We were called in the operating room after urology completed their surgery. The wound on the shaft of the penis measured 7x9 cm. Split-thickness skin graft was harvested from the right thigh using a Kurt dermatome. The graft was fenestrated using 15 blade and applied over the wound on the penis. The skin graft was sutured to the adjacent skin edges and garcia glandis using 4-0 chromic. Several interrupted sutures were also placed holding the edges of the skin graft together. Dressing consisted of Adaptic with bacitracin ointment, Sameer and Coban. The donor site was dressed with Xeroform gauze and Tegaderm. Patient tolerated the procedure well and was transferred to the recovery room in a stable condition. Operative Findings: Open wound involving the entire shaft of the penis Specimen(s):None Estimated blood loss: Minimal Drains: None Complications:None Teaching Statement/Participati on: Resident performed the entire procedure with my assistance. I was present during all critical and [place] portions of the procedure and was immediately available to furnish services during the entire procedure. Dictated by: Abhi Galicia MD 11/07/2024 9:[address] [facility] Pathology biopsy report Cale (Tiss)on 11-06-[address] [facility] Comment on above: Order Comment: Speci men Type: TISSUE SPECIMENOrdering Facility: [facility] Address: [address] [place] [address] Result Comment: Elza Noguera (LDT) Disclaimer: Performance characteristics of immunohistochemical, immunofluorescent, and chromogenic in-situ hybridization tests have been determined by the performing laboratory within [facility] ([facility], [facility], [facility], [facility], [facility], [facility], or [facility]) in a manner consistent with CLIA requirements. One or more of these tests may not have been cleared or approved by the FDA. [facility] is regulated under CLIA as qualified to perform high-complexity testing. These tests are used for clinical purposes. These should not be regarded as investigational or for research. Positive and negative controls stain appropriately. Performed By: #### 6 6121-5 ####[facility] LABIA [id number] [place] [address] [place] CASE REPORT Normal [facility] Comment on above: Order Comment: Speci men Type: TISSUE SPECIMENOrdering Facility: [facility] Address: [address] [place] [address] Result Comment: Surg ica Pathology Report Case: [id number] Authorizing Provider: Van Gillis MD Collected: 11/06/2024 09:03 AM Ordering Location: Admitting Received: 11/06/2024 09:08 AM Pathologist: David Palomino MD Intraop: Fredo Ballard MD Specimens: A) - Penis, Biopsy, penile skin rule out squamous cell carcinoma B) - Soft Tissue (Not otherwise specified), escutcheon Performed By: #### 6 6121-5 ####[facility] LABIA [id number] [address] OF [facility] CLINICAL HISTORY Normal [facility] Comment on above: Order Comment: Speci men Type: TISSUE SPECIMENOrdering Facility: [facility] Address: [address] [place] [address] Result Comment: Pre- op diagnosis: Acquired buried penis [N48.83] Performed By: #### 6 6121-5 ####[facility] LABIA [id number] [address] [facility] FINAL DIAGNOSIS Normal [facility] Comment on above: Order Comment: Speci men Type: TISSUE SPECIMENOrdering Facility: [facility] Address: [address] [place] [address] Result Comment: A. S kin, penis, biopsy: - Scar-like tissue with minor chronic inflammation. - Negative for neoplasm. B. Skin, escutcheon, escutcheonectomy: - Benign skin and subcutaneous tissue with minor fibrosis. BZS 11/08/24 at 1354 EDT Performed By: #### 6 6121-5 ####[facility] LABCLIA [id number] [address] [place] FINAL PERFORMING LAB Normal [facility] Comment on above: Order Comment: Speci men Type: TISSUE SPECIMENOrdering Facility: [facility] Address: [address] [place] [address] Result Comment: Diag nostic interpretation performed at: [facility], [address] [place] [address] CLIA# [id number] Warranty Administrator: Harshad Roy MD Performed By: #### 6 6121-5 ####[facility] LABCLIA [id number] [address] STATES [facility] GROSS DESCRIPTION Normal [facility] Comment on above: Order Comment: Speci men Type: TISSUE SPECIMENOrdering Facility: [facility] Address: [address] [place] [address] Result Comment: Segundo. Juju wills, Biopsy Received fresh for intraoperative consultation labeled [...] section in FSA1. Gross examination performed at [facility], [address] [place] [address] CLIA# [id number] 11/06/24 9:21 AM B. Soft Tissue (Not otherwise specified) Received fresh labeled escutcheon is a segment of negrete soft tissue measuring 25 x 9.5 x 5 cm, weighing 517.6 g. The wrinkled skin surface is abundantly hairbearing and grossly unremarkable. Sectioning reveals negrete, glistening predominantly fatty cut surfaces. Counselor Supervisor sections are submitted in 2 cassettes to include skin. Gross examination performed at [facility], [address] [place] [address] RSA November 06, 2024 3:38 PM Performed By: #### 6 6121-5 ####[facility] LABCLIA [id number] [address] [place] INTRAOPERATIVE DIAGNOSIS Normal [facility] Comment on above: Order Comment: Speci men Type: TISSUE SPECIMENOrdering Facility: [facility] Address: [address] [place] [address] Result Comment: A. P elma, Biopsy FSA1. Negative for carcinoma. Dr. Ballard. Intraoperative diagnosis performed at [facility], [address] [place] [address] CLIA# [id number] Performed By: #### 6 6121-5 ####[facility] LABCLIA [id number] [address] [facility]EV[facility] ([id number]) 1960 M Date Time Provider Department 10/30/24 RIKI LONG During your visit today, we recorded the following information about you: Riki Long, RN 10/30/2024 12:13 PM Signed Pt's , Santo, called into office to report patient has infection in a molar. Asking if ok to proceed with upcoming surgery. Steven Walden is scheduled for buried penis repair next Tuesday11/06/[address] Gillis. Reports tooth pain for the last week. Denies swelling, fever. Saw dentist today and prescribed Amoxicillin for [address] Gillis will be notified and nurse will call back Santo at [phone] Routing to HAYDE Orellana Elizabeth, RN 10/30/2024 2:08 PM Signed Spoke with Santo. Notified ok to proceed. HAYDE Duenas Petar, MD You13 minutes ago (1:54 PM) Ok to proceed Allergies As of Date: 10/30/2024 (No Known Allergies) Date Reviewed: 10/23/2024 Reviewed by: Cintia Salinas PA-C - Fully Assessed Prescriptions as of 10/30/2024 - hydrOXYzine pamoate (VISTARIL) 50 mg capsule Take 50 mg by mouth. - PARoxetine (PAXIL) 20 mg tablet Take 20 mg by mouth. - allopurinol (ZYLOPRIM) 100 mg tablet Take 100 mg by mouth once daily. - folic acid 1 mg tablet Take 1 mg by mouth once daily. - furosemide (LASIX) 40 mg tablet Take 40 mg by mouth once daily. - omeprazole (PRILOSEC) 40 mg capsule Take 40 mg by mouth once daily. - midodrine (PROAMATINE) 2.5 mg tablet Take 2.5 mg by mouth once daily. - thiamine (VITAMIN B-1) 100 mg tablet Take 100 mg by mouth once daily. - potassium chloride ER (KLOR-CON) 20 mEq tablet Take 20 mEq by mouth once daily. - QUEtiapine (SEROQUEL) 25 mg tablet Take 25 mg by mouth daily at bedtime. - QUEtiapine (SEROQUEL) 200 mg tablet Take 200 mg by mouth daily at bedtime. - ferrous sulfate (IRON) 325 mg (65 mg iron) tablet Take 325 mg by mouth once daily. - simethicone/sod bicarb/tta (SODIUM BICARB-TARTARIC ACID ORAL) Take 1,300 mg by mouth once daily. - atorvastatin (LIPITOR) 20 mg tablet Take 20 mg by mouth once daily. - magnesium oxide 400 mg magnesium tab Take 400 mg by mouth once daily. - valbenazine (INGREZZA) 60 mg capsule Take 60 mg by mouth once daily. - insulin regular, human (HUMULIN R U-500, CONC, INSULIN SUBCUTANEOUS) Inject subcutaneously. Sliding scale 30 to 50 units - dulaglutide (TRULICITY SUBCUTANEOUS) Inject subcutaneously one time a week. 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 Basic metabolic 2000 panelon 10-23-2024 Anion gap [Moles/Vol] 18 mmol/L High 8-15 [facility] Comment on above: Order Comment: Speci men Type: BLOOD SPECIMENOrdering Facility: [facility] Address: [address] [place] [address] Performed By: #### 2 4321-2 ####[facility] LABCLIA [id number] [place] [address] [place] Calcium [Mass/Vol] 9.5 mg/dL Normal 8.5-10.2 [facility] Comment on above: Order Comment: Speci men Type: BLOOD SPECIMENOrdering Facility: [facility] Address: [address] [place] [address] Performed By: #### 2 4321-2 ####[facility] LABCLIA [id number] [place] [id number] [place] Chloride [Moles/Vol] 103 mmol/L Normal 98-107 [facility] Comment on above: Order Comment: Speci men Type: BLOOD SPECIMENOrdering Facility: [facility] Address: [address] [place] [address] Performed By: #### 2 4321-2 ####[facility] LABCLIA [id number] [facility] [address] [address] [place] CO2 [Moles/Vol] 18 mmol/L Low 22-30 [facility] Comment on above: Order Comment: Speci men Type: BLOOD SPECIMENOrdering Facility: [facility] Address: [address] [place] [address] Performed By: #### 2 4321-2 ####[facility] LABCLIA [id number] [place] [id number] [place] Creatinine [Mass/Vol] 2.12 mg/dL High 0.73-1.22 [facility] Comment on above: Order Comment: Speci men Type: BLOOD SPECIMENOrdering Facility: [facility] Address: [address] [place] [address] Performed By: #### 2 4321-2 ####[facility] LABIA [id number] [place] [address] [place] eGFRcr SerPlBld CKD-EPI 2020 35 mL/min/1.73m??? Low >=60 [facility] Comment on above: Order Comment: Speci men Type: BLOOD SPECIMENOrdering Facility: [facility] Address: [address] [place] [address] Result Comment: Dulce mated Glomerular Filtration Rate (eGFR) is calculated using the 2020 CKD-EPI creatinine equation. This equation utilizes serum creatinine, sex, and age as parameters. The creatinine assay has traceable calibration to isotope dilution-mass spectrometry. Refer to KDIGO guidelines for clinical interpretation. In patients with unstable renal function, e.g. those with acute kidney injury, the eGFR may not accurately reflect actual GFR. Performed By: #### 2 4321-2 ####[facility] LABCLIA [id number] [facility] [address] [address] [place] Glucose [Mass/Vol] 148 mg/dL High 74-99 [facility] Comment on above: Order Comment: Speci men Type: BLOOD SPECIMENOrdering Facility: [facility] Address: [address] [place], [place] [address] Result Comment: The [place] Diabetes Association (ADA) provides guidance for cutoff [...] Standards of Medical Care in Diabetes 2016, [place] Diabetes Association. Diabetes Care. 2016.39(Suppl 1). Performed By: #### 2 4321-2 ####[facility] LABCLIA [id number] [place] [address] [place] Potassium [Moles/Vol] 3.6 mmol/L Low 3.7-5.1 [facility] Comment on above: Order Comment: Speci men Type: BLOOD SPECIMENOrdering Facility: [facility] Address: [address] [place], [place] [address] Performed By: #### 2 4321-2 ####[facility] LABCLIA [id number] [place] [address] [place] Sodium [Moles/Vol] 139 mmol/L Normal 136-144 [facility] Comment on above: Order Comment: Speci men Type: BLOOD SPECIMENOrdering Facility: [facility] Address: [address] [place] [address] Performed By: #### 2 4321-2 ####[facility] LABCLIA [id number] [address] [address] [place] Urea nitrogen [Mass/Vol] 29 mg/dL High 9-24 [facility] Comment on above: Order Comment: Speci men Type: BLOOD SPECIMENOrdering Facility: [facility] Address: [address] [place] [address] Performed By: #### 2 4321-2 ####[facility] LABIA [id number] [place] [address] [place] CBC panel Auto (Bld)on 10-23 Erythrocyte distribution width (RBC) [Ratio] 12.9 % Normal 11.5-15.0 [facility] Comment on above: Order Comment: Speci men Type: BLOOD SPECIMENOrdering Facility: [facility] Address: [address] [place] [address] Performed By: #### 5 8410-2 ####[facility] LABIA [id number] [address] [place] Hematocrit (Bld) [Volume fraction] 43.5 % Normal 39.0-51.0 [facility] Comment on above: Order Comment: Speci men Type: BLOOD SPECIMENOrdering Facility: [facility] Address: [address] [place] [address] Performed By: #### 5 8410-2 ####[facility] LABIA [id number] [place] [address] [place] Hemoglobin (Bld) [Mass/Vol] 15.2 g/dL Normal 13.0-17.0 [facility] Comment on above: Order Comment: Speci men Type: BLOOD SPECIMENOrdering Facility: [facility] Address: [address] [place] [address] Performed By: #### 5 8410-2 ####[facility] LABIA [id number] [place] [address] [place] MCH (RBC) [Entitic mass] 30.4 pg Normal 26.0-34.0 [facility] Comment on above: Order Comment: Speci men Type: BLOOD SPECIMENOrdering Facility: [facility] Address: [address] [place] [address] Performed By: #### 5 8410-2 ####[facility] LABIA [id number] [place] [address] [place] MCHC (RBC) [Mass/Vol] 34.9 g/dL Normal 30.5-36.0 [facility] Comment on above: Order Comment: Speci men Type: BLOOD SPECIMENOrdering Facility: [facility] Address: [address] [place] [address] Performed By: #### 5 8410-2 ####[facility] LABIA [id number] [place] [address] [place] MCV (RBC) [Entitic vol] 87.0 fL Normal 80.0-100.0 [facility] Comment on above: Order Comment: Speci men Type: BLOOD SPECIMENOrdering Facility: [facility] Address: [address] [place] [address] Performed By: #### 5 8410-2 ####[facility] LABIA [id number] [place] [address] [place] Nucleated RBC (Bld) [#/Vol] 10*3/uL Normal <0.01 [facility] Comment on above: Order Comment: Speci men Type: BLOOD SPECIMENOrdering Facility: [facility] Address: [address] [place] [address] Performed By: #### 5 8410-2 ####[facility] LABIA [id number] [place] [address] [place] Platelet mean volume (Bld) [Entitic vol] 10.4 fL Normal 9.0-12.7 [facility] Comment on above: Order Comment: Speci men Type: BLOOD SPECIMENOrdering Facility: [facility] Address: [address] [place] [address] Performed By: #### 5 8410-2 ####[facility] LABIA [id number] [place] [address] [place] Platelets (Bld) [#/Vol] 241 10*3/uL Normal 150-400 [facility] Comment on above: Order Comment: Speci men Type: BLOOD SPECIMENOrdering Facility: [facility] Address: [address] [place] [address] Performed By: #### 5 8410-2 ####[facility] LABCLIA [id number] [place] [address] [place] RBC (Bld) [#/Vol] 5.00 10*6/uL Normal 4.20-6.00 [facility] Comment on above: Order Comment: Speci men Type: BLOOD SPECIMENOrdering Facility: [facility] Address: [address] [place] [address] Performed By: #### 5 8410-2 ####[facility] LABCLIA [id number] [place] [address] [place] WBC (Bld) [#/Vol] 9.42 10*3/uL Normal 3.70-11.00 [facility] Comment on above: Order Comment: Speci men Type: BLOOD SPECIMENOrdering Facility: [facility] Address: [address] [place] [address] Performed By: #### 5 8410-2 ####[facility] LABIA [id number] [place] [address] [place] ECG COMPLETEon 10-23-2024 ECG COMPLETE Ventricular Rate : 7 2 BPM Atrial Rate : 72 BPM P-R Interval : 186 ms QRS Duration : 96 ms Q-T Interval : 410 ms QTC Calculation(Bazett) : 448 ms Calculated P Thoreau : 67 degrees Calculated R Thoreau : -3 degrees Calculated T Thoreau : 24 degrees NORMAL SINUS RHYTHM NORMAL ECG Confirmed by MD ACOSTA TAMANNA ([id number]) on 11/11/2024 8:10:21 PM NAME : STEVEN WALDEN PID : [id number] : 1960 Gender : Male Race : ORD : [id number] Procedure Date : Oct 23 2024 12:00:20 Edit Date : Nov 11 2024 20:10:23 Diagnosis: NORMAL SINUS RHYTHM NORMAL ECG Confirmed by MD ACOSTA TAMANNA ([id number]) on 11/11/2024 8:10:21 PM Test Reason : Location : 119 : [facility] A17-01 Overread By : MD ACOSTA TAMANNA Edited By : MD ACOSTA TAMANNA Referred By : , Acquired by : MICHELLE MORGAN [facility] HISTORY PHYSICALon HISTORY PHYSICAL HNO ID: [id number] Author: CINTIA SALINAS PA-C Service: ? Author Type: Physician Assurance Analyst Type: H&P Filed: 10/24/2024 08:02 Note Text: [facility] HISTORY AND PHYSICAL EXAMINATION SERVICE DATE: 10/23/2024 SERVICE TIME: 8:02 AM PRIMARY CARE PHYSICIAN: No primary care provider on file. Assessment Patient has the following medical conditions which may affect sada-operative course: GERD (gastroesophageal reflux disease) H/o duodenal ulcers. On Prilosec. Type 2 diabetes mellitus with kidney complication, with long-term current use of insulin ([facility]) On Trulicity, Humulin R. FBS 140s HgA1C 7.0 on 08/09/2024. Morbid obesity ([facility]) Body mass index is 40.4 kg/m?. On Trulicity, advised patient to stop 7 days prior to surgery. SHADE (obstructive sleep apnea) Compliant with CPAP. Myocardial bridge ([facility]) Cardiac cath with normal coronary arteries with mid LAD myocardial bridging in 2017. Follows with cardiology, last visit 02/29/2024. Orthostatic hypotension On midodrine. Denies syncope. BP 124/82 in office today. Follows with cardiology, last visit 02/29/2024. Denies new or worsening symptoms. CKD (chronic kidney disease) stage 4, GFR 15-29 ml/min ([facility]) H/o DAISY requiring dialysis temporarily. Now with CKD stage 4 per patient. Follows with nephrology. BMP pending. Anxiety Severe anxiety, on Paxil, hydroxyzine, Seroquel. Tardive dyskinesia On Ingrezza. Follows with neurology. Ascending aorta dilatation Mildly dilated ascending aorta and aortic root 4.0 cm on 08/30/2022. ANESTHESIA FINDINGS: Intubation History: No history of difficult intubation Significant Anesthesia Considerations: hard stick - has better results with hand veins. Has needed US guidance once. potential difficult IV/vein access Airway History: No history of difficult airway Coles Activity Status Index: METS: Walk indoors, such as around the house (1.75 METs) Do light work around the house, such as dusting or washing dishes (2.70 METs) Take care of self; that is eating, dressing, bathing, using the toilet (2.75 METs) Climb a flight of stairs or walk up a hill (5.50 METs) DASI Score: 12.7 (Winded with walking long distances, housework. Has been going on for years, denies worsening. Able to climb one flight of stairs without symptoms.) Patient denies any chest pain or undue shortness of breath with the above physical activity. Clinical Frailty Scale: 3. Well, with treated comorbid disease STOP-Bang Score: BMI greater than 35 kg/m2 Patient over 50 years old Has a large neck Male patient STOP-Bang Score: 4 (SHADE uses CPAP. ) [id number] Score: Diabetes history: Yes [id number] Score: I - PHYSICAL EVALUATION AIRWAY Patient intubated: No. Tracheostomy tube not present Mallampati: IV. TM distance: >3 FB. Neck ROM: full ROM without neurological symptoms. Mouth opening: adequate. Short neck: yes. Thick neck: yes Lip Bite Test: I DENTAL Dental findings: broken tooth. Additional comments: Crowns Broken molar . II - ANESTHESIA PLAN Anesthetic plan additional comments: *PACC/TCI - anesthesia choice. Beta Sapna Monitoring Plan Post Procedure Analgesic Plan Prepared for Surgery: optimally prepared for surgery. CONSULTS: Patient does not require consults for optimization at this time Planned Anesthetic: anesthesia choice The Following Tests/Procedures Have Been Initiated: Labs and EKG per surgical service. REASON FOR VISIT: Steven Walden is a 64 year old male who is scheduled for Procedure(s): Excision, excessive skin and subcutaneous tissue (includes lipectomy); abdomen, infraumbilical panniculectomy (N/A) ADJACENT TISSUE TRANSFER / REARRANGEMENT ABDOMEN 30.1-60.0 SQCM (N/A) SCROTOPLASTY COMPLICATED (Bilateral) ADJACENT TISSUE TRANSFER / REARRANGEMENT ABDOMEN ADD'L < OR =30 SQCM SQCM (N/A) PLASTIC OP ON PENIS TO CORRECT ANGULATION (N/A) SPLIT-THICKNESS AUTOGRAFT MALE GENITALIA <100 SQ CM (Pending) at the request of Van Baron MD for consultation. My final recommendation will be communicated back to the requesting physician by way of shared medical record or letter. Subjective The patient has the following: COVID-19 Immunization Status Current Care Gaps Covid-19 Vaccine ( season) Overdue since 12/11/2023 09/04/2020 Imm Admin: COVID-19 vaccine ([place]) CHIEF COMPLAINT: Pre-op evaluation HPI: Patient is a 64 year old year old male who is scheduled for above case on 11/06/2024. Patient has buried penis causing difficulty with urination. He had a slit procedure by his local urologist which temporarily improved urine flow but the penis has retracted again. Denies any fevers, chills, nausea, vomiting, SOB or chest pain. REVIEW OF SYSTEMS: General: Negative for: weight loss >10% of BW in last 6 months, malaise and fever. Neurological: Negative for: del (more content not included)... Normal [facility] EXTRA LAVENDER-TOP TUBEon COMMENT Normal [facility] Comment on above: Result Comment: An e xtra specimen was received with no test requested. The specimen will be maintained in storage in case additional testing is needed. Please call the client service department for further assistance. Performed By: #### X LPB #### [facility] [address] [facility] [address] [place] [address] Seasonal Recruiter: Bony Garcia M.D. #### [phone], [phone] #### [facility] [address], [address] [place] [address] Seasonal Recruiter: Angelo Dhaliwal MD #### [id number] #### [facility] [address] [place] [address] Seasonal Recruiter: Anderson Vega M.D.,PhD EXTRA LAVENDER-TOP TUBE Normal [facility] Comment on above: Performed By: #### X LPB #### [facility] [address] [place] [address] Seasonal Recruiter: Bony Garcia M.D. #### 5363, [phone] #### [facility] [address], [address] [place], [place] [address] Seasonal Recruiter: Angelo Dhaliwal MD #### [id number] #### [facility] [place], [place] Seasonal Recruiter: Anderson Vega M.D.,PhD HEPATITIS C AB W/RFL HCV RNA , PCR W/RFL [facility] 09-02-2024 HEPATITIS C ANTIBODY Non-Reactive Normal [facility] Comment on above: Result Comment: HCV antibody was non-reactive. There is no laboratory evidence of HCV infection. In most cases, no further action is required. However, if recent HCV exposure is suspected, a test for HCV RNA (test code 49613) is suggested. REFERENCE RANGE: NONREACTIVE For additional information, please refer to http://[employer]/faq/CTA653 (This link is being provided for informational/ educational purposes only.) Performed By: #### X LPB #### [facility] [address] [place] [address] Seasonal Recruiter: Bony Garcia M.D. #### 5363, 7600 #### [facility] [address], [address] [place] [address] Seasonal Recruiter: Angelo Dhaliwal MD #### [id number] #### [facility] [place], [place] Seasonal Recruiter: Anderson Vega M.D.,PhD LIPID PANEL, [facility] 08-10 Cholesterol [Mass/Vol] 125 mg/dL Normal <200 [facility] Comment on above: Order Comment: FASTI NG:YES FASTING: YES Performed By: #### X LPB #### [facility] [address] [place] [phone] Seasonal Recruiter: Bony Garcia M.D. #### 5363, 7600 #### [facility] [address], [address] [place], [place] [address] Seasonal Recruiter: Angelo Dhaliwal MD #### [id number] #### [facility]/[address] [place], [place] Seasonal Recruiter: Anderson Vega M.D.,PhD Cholesterol in HDL [Mass/Vol] 37 mg/dL Low > OR = 40 [facility] Comment on above: Order Comment: FASTI NG:YES FASTING: YES Performed By: #### X LPB #### [facility] [address] [place] [phone] Seasonal Recruiter: Bony Garcia M.D. #### 5363, 7600 #### [facility] [address], [address] [place] [address] Seasonal Recruiter: Angelo Dhaliwal MD #### [id number] #### [facility] [address] [place] [address] [place], [place] Seasonal Recruiter: Anderson Vega M.D.,PhD Cholesterol in LDL [Mass/Vol] 63 mg/dL Normal [facility] Comment on above: Order Comment: FASTI NG:YES FASTING: YES Result Comment: Refe rence range: <100 Desirable range <100 mg/dL for primary prevention; <70 mg/dL for patients with CHD or diabetic patients with > or = 2 CHD risk factors. LDL-C is now calculated using the Lisa calculation, which is a validated novel method providing better accuracy than the Friedewald equation in the estimation of LDL-C. Mino CACERES et al. LACY. 2013;310(19): 1223-8468 (http://education.[employer]/faq/ZWV330) Performed By: #### X LPB #### [facility] [address] [place] [address] Seasonal Recruiter: Bony Garcia M.D. #### 5363, 7600 #### [facility] [address], [address] [place] [address] Seasonal Recruiter: Angelo Dhaliwal MD #### [id number] #### [facility] [address] [place] Seasonal Recruiter: Anderson Vega M.D.,PhD Cholesterol.total/Chol esterol in HDL [Mass ratio] 3.4 {ratio} Normal <5.0 [facility] Comment on above: Order Comment: FASTI NG:YES FASTING: YES Performed By: #### X LPB #### [facility] [address] [place] [phone] Seasonal Recruiter: Bony Garcia M.D. #### 5363, 7600 #### [facility] [address], [address] [place], [place] [address] Seasonal Recruiter: Angelo Dhaliwal MD #### [id number] #### [facility] [address] [place] [place] Seasonal Recruiter: Anderson Vega M.D.,PhD NON HDL CHOLESTEROL 88 mg/dL (calc) Normal <130 [facility] Comment on above: Order Comment: FASTI NG:YES FASTING: YES Result Comment: For patients with diabetes plus 1 major ASCVD risk factor, treating to a non-HDL-C goal of <100 mg/dL (LDL-C of <70 mg/dL) is considered a therapeutic option. Performed By: #### X LPB #### [facility] [address] [place] [address] Seasonal Recruiter: Bony Garcia M.D. #### 5363, 7600 #### [facility] [address], [address] [place], [place] [address] Seasonal Recruiter: Angelo Dhaliwal MD #### [id number] #### [facility] [address] [place] Seasonal Recruiter: Anderson Vega M.D.,PhD Triglyceride [Mass/Vol] 178 mg/dL High <150 [facility] Comment on above: Order Comment: FASTI NG:YES FASTING: YES Performed By: #### X LPB #### [facility] [address] [place] [address] Seasonal Recruiter: Bony Garcia M.D. #### 5363, 7600 #### [facility] [address], [address] [place] [address] Seasonal Recruiter: Angelo Dhaliwal MD #### [id number] #### [facility] [address] [facility] [place], [place] Seasonal Recruiter: Anderson Vega M.D.,PhD PSA, TOTALon 09-02-2024 PSA, TOTAL 0.43 ng/mL Normal < OR = 4.00 [facility] Comment on above: Result Comment: The total PSA value from this assay system is standardized against the WHO standard. The test result will be approximately 20% lower when compared to the equimolar-standardized total PSA ([facility]). Comparison of serial PSA results should be interpreted with this fact in mind. This test was performed using the Siemens chemiluminescent method. Values obtained from different assay methods cannot be used interchangeably. PSA levels, regardless of value, should not be interpreted as absolute evidence of the presence or absence of disease. Performed By: #### X LPB #### [facility] [address] [place] [phone] Seasonal Recruiter: Bony Garcia M.D. #### [phone], 7600 #### [facility] [address], [address] [place] [address] Seasonal Recruiter: Angelo Dhaliwal MD #### [id number] #### [facility] [address] [place] [place] Seasonal Recruiter: Anderson Vega M.D.,PhD Glucose (Bld) [Mass/Vol]on 0 08-09-2024 Glucose Blood, POC 96 mg/dL [facility] - Hematology and Cell countson 08-09-2024 HbA1c (Bld) [Mass fraction] 7 % [facility] No Panel Informationon 08-09 Interpretation and review of laboratory results Normal [facility] 08-06-2024 [facility] Telephone (URON) STEVEN WALDEN ([id number]) 1960 M Date Time Provider Department 08/06/24 RIKI LONG During your visit today, we recorded the following information about you: Riki Long RN 08/06/2024 4:20 PM Signed Spoke with pt's . Nurse will call back tomorrow morning to talk with both patient and his about surgery an dates. HAYDE Duenas Elizabeth, RN 08/07/2024 9:43 AM Signed Steven Walden accepts 11/06/24 surgical date at [facility] for Buried Penis Repair with skin graft with Dr. Gillis. Surgery schedulers will contact patient with pre-op appointments that are typically scheduled 7-10 days before surgery. Patient will find out arrival time the day before surgery. Steven Walden verifies understanding. Riki Long RN Allergies As of Date: 08/06/2024 (No Known Allergies) Date Reviewed: 07/18/2024 Reviewed by: Mamadou Flor MA - Fully Assessed Prescriptions as of 08/07/2024 - allopurinol (ZYLOPRIM) 100 mg tablet Take 100 mg by mouth once daily. - folic acid 1 mg tablet Take 1 mg by mouth once daily. - furosemide (LASIX) 40 mg tablet Take 40 mg by mouth once daily. - omeprazole (PRILOSEC) 40 mg capsule Take 40 mg by mouth once daily. - midodrine (PROAMATINE) 2.5 mg tablet Take 2.5 mg by mouth once daily. - MEDICATION, NON-DATABASE Take 20 mg by mouth once daily. Paxel - thiamine (VITAMIN B-1) 100 mg tablet Take 100 mg by mouth once daily. - potassium chloride ER (KLOR-CON) 20 mEq tablet Take 20 mEq by mouth once daily. - QUEtiapine (SEROQUEL) 25 mg tablet Take 25 mg by mouth daily at bedtime. - QUEtiapine (SEROQUEL) 200 mg tablet Take 200 mg by mouth daily at bedtime. - ferrous sulfate (IRON) 325 mg (65 mg iron) tablet Take 325 mg by mouth once daily. - simethicone/sod bicarb/tta (SODIUM BICARB-TARTARIC ACID ORAL) Take 1,300 mg by mouth once daily. - atorvastatin (LIPITOR) 20 mg tablet Take 20 mg by mouth once daily. - magnesium oxide 400 mg magnesium tab Take 400 mg by mouth once daily. - valbenazine (INGREZZA) 60 mg capsule Take 60 mg by mouth once daily. - insulin regular, human (HUMULIN R U-500, CONC, INSULIN SUBCUTANEOUS) Inject subcutaneously. Sliding scale 30 to 50 units - dulaglutide (TRULICITY SUBCUTANEOUS) Inject subcutaneously one time a week. Mondays - cmplx 4/vit D3/C/folic/zinc (VITAL-D RX ORAL) Take 2,000 mg by mouth once daily. Problem List As Of Date: 08/06/2024 (None) Encounter Status:Closed by RIKI LONG on 08/07/24 [facility] CNOVon 07-18-2024 CNOV Office Visit (PLASMN ) STEVEN WALDEN ([id number]) 1960 M Date Time Provider Department 07/18/24 1:00 PM ABHI GALICIA During your visit today, we recorded the following information about you: Temperature Pulse Blood pressure Weight 97.5 degrees 83/minute 148/76 143.8 kg Height 1.905 m Abhi Galicia MD 07/18/2024 2:18 PM Signed Plastic Surgery Note CC: Buried penis HPI: Steven is a 64 year old male from [place], [place] who presents today for evaluation of a buried penis causing difficulty with urination. He recently underwent a slit procedure (05/12/2024) with his local urologist (Ede DUFFY) which provided only temporary relief. He reports he is currently able to urinate without issue. He has been working on weight loss, but reports his weight has remained stable ~317 lbs. At his heaviest he was around 380 lbs. He was evaluated by Dr. Gillis in urology on 07/05/2024, who recommended surgical intervention to expose the penis and remove scar tissue. Patient presents today to discuss PRS role in reconstruction. PMH: DM 2 (A1C 7.1% 06/15/24), non smoker. No history of PR/stents. Review of Systems: GENERAL: No weight loss, malaise or fevers. SKIN: See HPI PAIN ASSESSMENT: None presently No past medical history on file. No past surgical history on file. Current Outpatient Medications Medication Sig Dispense Refill nystatin (NYSTOP) powder Apply 1 application to affected area four times daily. 60 g 2 allopurinol (ZYLOPRIM) 100 mg tablet Take 100 mg by mouth once daily. folic acid 1 mg tablet Take 1 mg by mouth once daily. furosemide (LASIX) 40 mg tablet Take 40 mg by mouth once daily. omeprazole (PRILOSEC) 40 mg capsule Take 40 mg by mouth once daily. midodrine (PROAMATINE) 2.5 mg tablet Take 2.5 mg by mouth once daily. MEDICATION, NON-DATABASE Take 20 mg by mouth once daily. Paxel (Patient taking differently: Take 40 mg by mouth once daily. Paxel) thiamine (VITAMIN B-1) 100 mg tablet Take 100 mg by mouth once daily. potassium chloride ER (KLOR-CON) 20 mEq tablet Take 20 mEq by mouth once daily. QUEtiapine (SEROQUEL) 25 mg tablet Take 25 mg by mouth daily at bedtime. QUEtiapine (SEROQUEL) 200 mg tablet Take 200 mg by mouth daily at bedtime. ferrous sulfate (IRON) 325 mg (65 mg iron) tablet Take 325 mg by mouth once daily. simethicone/sod bicarb/tta (SODIUM BICARB-TARTARIC ACID ORAL) Take 1,300 mg by mouth once daily. atorvastatin (LIPITOR) 20 mg tablet Take 20 mg by mouth once daily. magnesium oxide 400 mg magnesium tab Take 400 mg by mouth once daily. valbenazine (INGREZZA) 60 mg capsule Take 60 mg by mouth once daily. insulin regular, human (HUMULIN R U-500, CONC, INSULIN SUBCUTANEOUS) Inject subcutaneously. Sliding scale 30 to 50 units dulaglutide (TRULICITY SUBCUTANEOUS) Inject subcutaneously one time a week. Mondays B cmplx 4/vit D3/C/folic/zinc (VITAL-D RX ORAL) Take 2,000 mg by mouth once daily. No current facility-administered medications for this visit. ALLERGIES No Known Allergies PE: BP 148/76 Pulse 83 Temp 36.4 ?C (97.5 ?F) (Temporal) Ht 190.5 cm (6' 3 ) Wt (!) 143.8 kg (317 lb) BMI 39.62 kg/m? General: AANDO x 3; NAD Abdomen/Groin: Buried penis / prominent mons Assessment: Steven is a 64 year old male who presents today for surgical evaluation of a buried penis. He was evaluated by urology with plans for excision/scar tissue removal, and reconstruction with a skin graft. Plan: - Photo taken and uploaded to patient's chart with verbal consent - Plan for surgical reconstruction with skin grafting - Discussed importance of DM control to promote wound healing - Reviewed post op care for skin graft, discussed a likely 2-3 day hospital stay post operatively - Pre op testing per urology team Follow up at the time of surgery The patient is seen and examined by Dr. Galicia and the following reflects his service. 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 - allopurinol (ZYLOPRIM) 100 mg tablet Take 100 mg by mouth once daily. - folic acid 1 mg tablet Take 1 mg by mouth once daily. - furosemide (LASIX) 40 mg tablet Take 40 mg by mouth once daily. - omeprazole (PRILOSEC) 40 mg capsule Take 40 mg by mouth once daily. - midodrine (PROAMATINE) 2.5 mg tablet Take 2.5 mg by mouth once daily. - MEDICATION, NON-DATABASE Take 20 mg by mouth once daily. Paxel - thiamine (VITAMIN B-1) 100 mg tablet Take 100 mg by mouth once daily. - potassium chloride ER (KLOR-CON) 20 mEq tablet Take 20 mEq by mouth once daily. - (more content not included)... Normal [facility] CNOVon 07-05-2024 CNOV Office Visit (UROLIN ) STEVEN WALDEN ([id number]) 1960 M Date Time Provider Department 07/05/24 8:20 AM VAN GILLIS During your visit today, we recorded the following information about you: Van Gillis MD 07/05/2024 8:35 AM Signed Urology Note Patient info Steven Walden 1960 [id number] CC: The patient is a 64-year-old male with a history of diabetes mellitus and buried penis, presenting for further evaluation and management of his condition. HPI: The patient was referred by Anibal Marino and is accompanied by his . He has been experiencing difficulty with urination due to a buried penis. He was circumcised as a child and underwent a slit procedure by his local urologist in May, which temporarily improved urinary flow. However, the penis has retracted again, causing concern for future urinary difficulties. The patient reports that the area around the urethral meatus is scarred and rough following the procedure. The patient has a history of diabetes mellitus, with a recent hemoglobin A1c of 7.1 two weeks ago, indicating well-controlled diabetes. He is currently on Trulicity and insulin. He also reports weak erections. The patient has been managing his weight and has lost approximately 100 pounds over the past year, currently weighing around 317 pounds, down from nearly 400 pounds. He attributes his weight loss to dietary changes and denies the use of weight loss medications. He reports his weight has been consistent recently. The patient has a history of renal issues, with only one functioning kidney at approximately 33% capacity. He has a history of nephrolithiasis, which led to renal failure a few years ago. The right kidney is atrophied due to multiple stones. He is not a smoker. ROS: SENSITIVE EXAMINATION CONSENT: The sensitive examination was discussed with the Patient or Patient's Authorized Counselor Supervisor. As applicable, any other physician, advance practice provider, medical student, or other health professional student that will be observing or involved in the sensitive examination for educational or training purposes was discussed with the Patient or Authorized Counselor Supervisor. The Patient or Authorized Counselor Supervisor has agreed to proceed with the sensitive examination. (Sensitive examination includes inspection and/or palpation of the breasts, pelvis, prostate and anorectal regions) Exam: General: Alert AND oriented, no acute distress Skin: Tinea cruris bilaterally in groin creases Abdomen: Soft, non-tender, non-distended, obese with large pannus Genitourinary: Buried penis with large mobile escutcheon which is distinct from the pannus. There is a cicatrix of the surrounding penoscrotal skin which makes it impossible to deliver the penis. There is significant scarring and inflammation of the visualized shaft skin. The meatus is visible, and part of the glans, and there is no evidence of lichen sclerosus in this area. The scrotum is quite small and tethered upwards. Results: Labs: - Hemoglobin A1c: 7.1 - Hemoglobin A1c: 8.2 - Creatinine: 2.14 mg/dL A/P: 1. 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 Recent slit procedure by local urologist provided temporary relief but the condition has recurred. Examination reveals significant scarring and inflammation, making it difficult to visualize the penile shaft. - Discussed surgical intervention to expose the penis, remove scar tissue, and perform escutcheonectomy. - Explained potential need for scrotal flaps or skin graft from the thigh due to insufficient scrotal skin. - Discussed risks including graft failure and wound dehiscence. - Emphasized importance of weight loss and diabetes control to prevent recurrence. - Referred to Dr. Joey Galicia, plastic surgeon, for preoperative evaluation. - Scheduled surgery tentatively for August to September. 2. 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 - Addressed as part of overall management of diabetes and surgical intervention for buried penis. 3. Type 2 diabetes mellitus without complication, with long-term current use of insulin (HCC) (E11.9) Diabetes is well-controlled with recent HbA1c of 7.1%. Patient is on Trulicity and insulin therapy. - Continue current diabetes management. - Monitor blood glucose levels closely, especially postoperatively. 4. Stage 3 chronic kidney disease, unspecified whether stage 3a or 3b CKD (HCC) (N18.30) CKD stage 3 with a creatinine level of 2.14 mg/dL. Patient has a solitary functioning kidney. - Monitor renal function regularly. - Avoid nephrotoxic medications. 5. 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 - Prescr (more content not included)... Normal [facility] Erythrocyte distribution wid th Auto (RBC) [Ratio]on 07-04-2024 Erythrocyte distribution width (RBC) [Ratio] Erythrocyte distribution width [Ratio] by Automated count 11.0-15.0 [facility] Estimated glomerular filtrat ion rate (GFR) non- Americanon 07-04-2024 GFR/1.73 sq M.predicted among non-blacks MDRD (S/P/Bld) [Vol rate/Area] Estimated glomerular filtration rate (GFR) non- Low >=60 mL/min/1.73m 2 [facility] Hematocrit Auto (Bld) [Volum e fraction]on 07-04-2024 Hematocrit (Bld) [Volume fraction] Hematocrit [Volume Fraction] of Blood by Automated count 42.0-54.0 [facility] Hemoglobin [Mass/volume] in Bloodon 07-04-2024 Hemoglobin (Bld) [Mass/Vol] Hemoglobin [Mass/volume] in Blood 14.0-18.0 [facility] Iron binding capacity [Mass/ volume] in Serum or Plasmaon 07-04-2024 Iron binding capacity [Mass/Vol] Iron binding capacity [Mass/volume] in Serum or Plasma 250.0-450.0 [facility] Iron saturation [Mass Fracti on] in Serum or Plasmaon 07-04-2024 Iron saturation [Mass fraction] Iron saturation [Mass Fraction] in Serum or Plasma [facility] Laboratory - Chemistry and C hemistry - challengeon 07-04-2024 Albumin [Mass/Vol] 3.6 g/dL 3.4-5.0 [facility] Calcium [Mass/Vol] 9.1 mg/dL 8.5-10.1 [facility] Chloride [Moles/Vol] 103 mmol/L 98-107 [facility] CO2 [Moles/Vol] 24.8 mmol/L 21.0-32.0 [facility] Creatinine [Mass/Vol] 2.14 mg/dL High 0.70-1.30 [facility] Ferritin [Mass/Vol] 74.0 ng/mL 26.0-388.0 [facility] GFR/1.73 sq M.predicted MDRD (S/P/Bld) [Vol rate/Area] 38 mL/min/{1.73_m2} Low >=60 mL/min/1.73m 2 [facility] Glucose [Mass/Vol] 141 mg/dL High 74-106 [facility] Iron [Mass/Vol] 94.0 ug/dL 65.0-175.0 [facility] Magnesium [Mass/Vol] 1.9 mg/dL 1.8-2.4 [facility] Potassium [Moles/Vol] 3.5 mmol/L 3.5-5.1 [facility] Sodium [Moles/Vol] 138 mmol/L 136-145 [facility] Urate [Mass/Vol] 7.0 mg/dL 3.5-7.2 [facility] Urea nitrogen [Mass/Vol] 30.0 mg/dL High 7.0-18.0 [facility] Urea nitrogen/Creatinine [Mass ratio] 14.0 mg/mg [facility] Laboratory - Urinalysison Protein (U) [Mass/Vol] 22.6 mg/dL High <=11.9 [facility] Leukocytes [#/volume] correc heather for nucleated erythrocytes in Blood by Automated counon 07-04-2024 WBC corrected for nucl RBC Auto (Bld) [#/Vol] Leukocytes [#/volume] corrected for nucleated erythrocytes in Blood by Automated coun 4.0-11.0 [facility] MCH Auto (RBC) [Entitic mass ]on 07-04-2024 MCH (RBC) [Entitic mass] MCH [Entitic mass] by Automated count 25.9-34.0 [facility] MCHC Auto (RBC) [Mass/Vol]on 07-04-2024 MCHC (RBC) [Mass/Vol] MCHC [Mass/volume] by Automated count 29.9-35.2 [facility] MCV Auto (RBC) [Entitic vol] on 07-04-2024 MCV (RBC) [Entitic vol] MCV [Entitic volume] by Automated count 80.0-94.0 [facility] No Panel Informationon 07-04 Parathyroid Hormone (Intact) 149 pg/mL Abnormal 15-65 [facility] Comment on above: Performed at: [facility] [employer] [address] [id number] Director: James Marina PhD, Phone: [phone] Phosphorus Level 3.8 mg/dL 2.6-4.7 [facility] Urine Random Creatinine 95.68 mg/dL 20.00-300.00 [facility] Platelet mean volume Auto (B ld) [Entitic vol]on 07-04-2024 Platelet mean volume (Bld) [Entitic vol] Platelet mean volume [Entitic volume] in Blood by Automated count 9.5-13.5 [facility] Platelets Auto (Bld) [#/Vol] on 07-04-2024 Platelets (Bld) [#/Vol] Platelets [#/volume] in Blood by Automated count 150-450 [facility] RBC Auto (Bld) [#/Vol]on RBC (Bld) [#/Vol] Erythrocytes [#/volume] in Blood by Automated count 4.70-6.10 [facility] Serum or plasma anion gap de terminationon 07-04-2024 Anion gap [Moles/Vol] Serum or plasma an ion gap determination [facility]H URINE T PROTEIN CREAT RA TIOon 07-04-2024 CREATININE URINE RANDOM 95.68 mg/dL 20.00 - 300.00 mg/dL [facility] Interpretation and review of laboratory results Abnormal [facility] Protein (U) [Mass/Vol] 22.6 mg/dL High NINF - 11.9 mg/dL [facility] PROTEIN CREATININE RATIO URINE 0.24 [facility] Urine protein/creatinine rat ioon 07-04-2024 Protein/Creatinine (U) [Ratio] Urine protein/creatinine ratio [facility] CNOVon 06-15-2024 CNOV Office Visit (UROLMN ) STEVEN WALDEN ([id number]) 1960 M Date Time Provider Department 06/15/24 1:00 PM ANIBAL BRANTLEY During your visit today, we recorded the following information about you: Pulse Blood pressure Weight 81/minute 126/82 143.8 kg Anibal Brantley APRN.LINEN GRADER 06/17/2024 6:35 PM Addendum [facility] MALE PATIENT - HISTORY AND PHYSICAL EXAMINATION PATIENT: Steven Walden Patient has been identified by name and date of : Yes PCP: No primary care provider on file. CHIEF COMPLAINT: buried penis HISTORY OF PRESENT ILLNESS: Steven Walden is a 64 year old male presenting today for: buried penis. Pt presents with his to today's visit. Never seen in urology at [facility]. Pt is followed by urology near where he lives. He has had buried penis for a couple of years, but recently had difficulty urinating due to this. He was re-circumcised last month with local urology but already reports he is having difficulty with the buried penis again. He has Dm and last A1C was 8.2. Denies any urinary concerns at this time. He has a strong stream. Not having erections. Review: Daytime frequency: Q 2-3 Hrs; Night time frequency: 1X Irritative (STORAGE) symptoms: - Bothersome frequency: No - Urgency: Yes- sometimes - Incontinence: Stress No / Urge No Obstructive symptoms: - Force of stream Good - Hesitancy Yes - Intermittency: No - Straining: Yes- slightly - Incomplete emptying: No - Double voiding: No - Postvoid dribbling: No Current Urinary Status: - Indwelling catheter: No - Current intermittent Catheterization: No - Gross hematuria: No - UTI: No PVR 42 ml REVIEW OF SYSTEMS: relevant updates noted in HPI PAST MEDICAL HISTORY: No past medical history on file. No past surgical history on file. No family history on file. MEDICATIONS: reviewed and confirmed with patient OFFICE DATA: labs reviewed OTHER DATA: Labs reviewed No results found for: PSA No results found for: TESTOST , TESTFREE No results found for: HBA1C No results found for: TSH No results found for: CREAT PHYSICAL EXAMINATION: The sensitive examination was discussed with the Patient or Patient's Authorized Counselor Supervisor. As applicable, any other physician, advance practice provider, medical student, or other health professional student that will be observing or involved in the sensitive examination for educational or training purposes was discussed with the Patient or Authorized Counselor Supervisor. The Patient or Authorized Counselor Supervisor has agreed to proceed with the sensitive examination. (Sensitive examination includes inspection and/or palpation of the breasts, pelvis, prostate and anorectal regions) General appearance: cooperative, pleasant, no acute distress, alert and oriented Neuro: normal affect, normal speech, gait is normal. Lungs/chest: no signs of respiratory distress, no audible wheezing Extremities: no edema, normal motor function. Back: no CVA tenderness Abdomen: no suprapubic distention Scrotum: non-erythematous, no lesions, no hydrocele Penis: buried penis, circumcised. ASSESSMENT: 1. 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 Encounter for screening for diabetes mellitus - ICD9: V77.1, ICD10: Z13.1 PLAN: 1. Acquired buried penis (Primary) -will refer to Dr. Gillis for buried penis repair 2. Encounter for screening for diabetes mellitus - HEMOGLOBIN A1C; Future The results of tests will be communicated to patient via telephone. Patient verbalized understanding. Anibal Brantley APRN.KARINA Location:Sandie Spann [place] 06/15/2024 2:11 PM Signed Post Void Residual done on patient with 42ML residual volume remaining. notified. Sandie Perez MA Allergies As of Date: 06/15/2024 (No Known Allergies) Date Reviewed: 06/15/2024 Reviewed by: Sandie Perez MA - Fully Assessed Reason for Visit: Consult [173] Primary Visit Diagnosis:Acquired buried penis [N48.83] Other Visit Diagnosis:Encounter for screening for diabetes mellitus [Z13.1] Order(s):HEMOGLOBIN A1C [[id number]] Order #: [id number] FUTURE Prescriptions as of 06/17/2024 - allopurinol (ZYLOPRIM) 100 mg tablet Take 100 mg by mouth once daily. - folic acid 1 mg tablet Take 1 mg by mouth once daily. - furosemide (LASIX) 40 mg tablet Take 40 mg by mouth once daily. - omeprazole (PRILOSEC) 40 mg capsule Take 40 mg by mouth once daily. - midodrine (PROAMATINE) 2.5 mg tablet Take 2.5 mg by mouth once daily. - MEDICATION, NON-DATABASE Take 20 mg by mouth once daily. Paxel - thiamine (VITAMIN B-1) 100 mg tablet Take 100 mg by mouth once daily. - potassium chloride ER (KLOR-CON) 20 mEq tablet Take 20 mEq by mouth once daily. - QUEtiapine (SEROQUEL) 25 mg tablet Take 25 mg by mouth daily at bedtime. (more content not included)... Normal [facility] HbA1c (Bld)on 06-15-2024 Average glucose Estimated from glycated hemoglobin (Bld) [Mass/Vol] 157 mg/dL Normal [facility] Comment on above: Order Comment: Batool carbajal Type: BLOOD SPECIMENOrdering Facility: [facility] Address: [address] [place] [address] Result Comment: eAG: (Estimated average glucose) is a calculated value from HgbA1c and is sales representative church furniture of the average blood glucose level in the last 2-3 month period. Performed By: #### 5 [id number] ####[facility] LABCLIA [id number] [place] [address] [place] HbA1c (Bld) [Mass fraction] 7.1 % High 4.3-5.6 [facility] Comment on above: Order Comment: Batool carbajal Type: BLOOD SPECIMENOrdering Facility: [facility] Address: [address] [id number] Result Comment: [place] Diabetes Association guidelines indicate that patients with HgbA1c in the range 5.7-6.4% are at increased risk for development of diabetes, and intervention by lifestyle modification may be beneficial. HgbA1c greater or equal to 6.5% is considered diagnostic of diabetes. Performed By: #### 5 [id number] ####[facility] LABCLIA [id number] [place] [id number] [facility] Ambulatory Visit Summaryon 0 05-30-2024 Ambulatory Visit Summary Ambulatory Visit Summary STEVEN WALDEN :1960 Visit Date:05/30/2024 Ambulatory Visit Instructions Your Diagnosis Phimosis Kidney stone BPH with urinary obstruction Renal atrophy CKD (chronic kidney disease) Nodule of kidney Your Care Team Attending Physician - Sun Quach MD Primary Care Physician - DARION RANDLE MD This Is Your Medications List Contact prescribing physician if questions or concerns Misc Prescription (#####) allopurinol (allopurinol 100 mg Tab) atorvastatin (atorvastatin 20 mg Tab) dulaglutide (Trulicity 1.5 mg/0.5 mL subcutaneous solution) ferrous sulfate (ferrous sulfate 325 mg Tab) folic acid (folic acid 1 mg Tab) furosemide (furosemide 40 mg Tab) insulin regular (HumuLIN R KwikPen (Concentrated) human recombinant 500 units/mL subcutaneous solution) lorazepam (LORazepam 1 mg Tab) magnesium oxide midodrine (midodrine 2.5 mg oral tablet) omeprazole (omeprazole 40 mg Cap-DR) paroxetine (paroxetine 20 mg Tab) potassium chloride (potassium chloride 20 mEq ER Tab) quetiapine (quetiapine 200 mg Tab) sodium bicarbonate (sodium bicarbonate 650 mg Tab) valbenazine (Ingrezza 60 mg oral capsule) [Image Removed: STOP]Stop taking these medications tadalafil (tadalafil 5 mg oral tablet) Procedures Performed Circumcision (05/15/2024), Cholecystectomy, Cystoscopy, Insertion of catheter into heart chamber, Open reduction and internal fixation of fracture, Removal of stent. Discharge Vitals Heart Rate (Peripheral) 69 Respiratory Rate 18 Blood Pressure 121/79 Height 184 cm Height 72 in Weight 160 kg Weight 352.739 lb BMI 47.26 What to do next Scheduled Follow-Up Appointments Tuesday 8:00 AM EDT With: Main ROMERO, Sun Bright Where: [facility] [address] [address]- You Need to Schedule the Following Appointments Follow Up with Main ROMERO, Sun Bright, URL, URO When: Where: Medications What How Much When Instructions Unchanged allopurinol (allopurinol 100 mg Tab) 1 Tablets By Mouth Every day Contact prescribing physician if questions or concerns Unchanged atorvastatin (atorvastatin 20 mg Tab) 1 Tablets By Mouth Every day 90 EA, 0 Refill(s), TAKE 1 TABLET BY MOUTH AT BEDTIME Contact prescribing physician if questions or concerns Unchanged dulaglutide (Trulicity 1.5 mg/ 0.5 mL subcutaneous solution) See instructions On Mondays Contact prescribing physician if questions or concerns Unchanged ferrous sulfate (ferrous sulfate 325 mg Tab) 1 Tablets By Mouth Every day 180 EA, 0 Refill(s), TAKE 1 TABLET BY MOUTH TWICE A DAY Contact prescribing physician if questions or concerns Unchanged folic acid (folic acid 1 mg Tab) 1 Tablets By Mouth Every day Contact prescribing physician if questions or concerns Unchanged furosemide (furosemide 40 mg Tab) 1 Tablets By Mouth Every day 90 EA, 0 Refill(s), TAKE 1 TABLET BY MOUTH DAILY Contact prescribing physician if questions or concerns Unchanged insulin regular (HumuLIN R KwikPen (Concentrated) human recombinant 500 units/ mL subcutaneous solution) 30 mL, 0 Refill(s), INJECT 30 - 40 - 50 UNITS SUBCUTANEOUSLY TWICE A DAY DIRECTED (EXPECT DOSE OF 150 UNITS DAILY) Contact prescribing physician if questions or concerns Unchanged lorazepam (LORazepam 1 mg Tab) 1 Tablets Contact prescribing physician if questions or concerns Unchanged magnesium oxide 400 Milligram By Mouth Every day Oral, 0 Refill(s) Contact prescribing physician if questions or concerns Unchanged midodrine (midodrine 2.5 mg oral tablet) 1 Tablets By Mouth Every day 90 EA, 0 Refill(s), TAKE 1 TABLET BY MOUTH 3 TIMES DAILY WITH MEALS hypotension Contact prescribing physician if questions or concerns Unchanged Misc Prescription (#####) 0 200 EA, 0 Refill(s), USE DIRECTED UNDER THE SKIN TWICE DAILY Contact prescribing physician if questions or concerns Unchanged omeprazole (omeprazole 40 mg Cap-DR) 1 Capsules By Mouth Every day 14 EA, 0 Refill(s), TAKE 1 CAPSULE BY MOUTH IN THE MORNING BEFORE MEAL *MUST MAKE APPOINTMENT* Contact prescribing physician if questions or concerns Unchanged paroxetine (paroxetine 20 mg Tab) 1 Tablets Contact prescribing physician if questions or concerns Unchanged potassium chloride (potassium chloride 20 mEq ER Tab) 1 Tablets By Mouth Every day Oral, 0 Refill(s) Contact prescribing physician if questions or concerns Unchanged quetiapine (quetiapine 200 mg Tab) 1 Tablets By Mouth At bedtime Contact prescribing physician if questions or concerns Unchanged sodium bicarbonate (sodium bicarbonate 650 mg Tab) 2 Tablets By Mouth 2 times a day 360 EA, 0 Refill(s), TAKE 2 TABLETS BY MOUTH TWICE A DAY Contact prescribing physician if questions or concerns Unchanged valbenazine (Ingrezza 60 mg oral capsule) 1 Capsules By Mouth Every day 30 cap(s), 0 Refill(s) Tardive dyskinesia Contact prescribing physic (more content not included)... [facility] Urology Office/Clinic Noteon 05-30-2024 Urology Office/Clinic Note Urology Office/Clinic Note Chief Complaint 2wk f/u HPI Staff PO dorsal slit 05/15/24, here for 2 wk f/u. Pt states things are healing well, but has not solved any issues urinating. He can urinate better but not as well as they hoped. Denies any drainage, or signs any infection. Last seen IO 04/18/24, dx: kidney stone, renal atrophy, CKD, BPH with urinary obstruction, phimosis. *Prescribed Cialis 5mg qd at prior OV - has not started yet, pharmacist had concerns about kidney function, pt wants to review urine output testing triamcinolone 0.1% cream bid x 2 weeks at prior OV[address] CT AP wo con and NM kidney imaging w/ flow/[place] [facility] Pt's called 05/16/23 with concerns of difficulty with wound dressing change s/p dorsal slit. Was struggling to place gauze while trying to expose the buried penis, but was able to apply the ointment. Dysuria: denies Incomplete bladder emptying: denies Hematuria: denies Frequency: Urgency: yes Nocturia: 1x per night Stream: good stream - no longer has start/stop stream Leaking: denies Post void dripping: denies Wearing pads/ Depends: denies Urge incontinence: denies Stress incontinence: denies Incontinence without Sensory Awareness: denies Abdominal pain: denies Flank pain: right side occasional - wants to discuss Sexual complaints: _ History of Present Illness Tests reviewed: reviewed UA, path, CT, NM renal scan, UCx, renal function. I have reviewed the previous health record information and history for this patient from Dr. Quach I have reviewed and verified the staff HPI to be accurate for this encounter. There have been no associated fever, chills, flank pain, or blood in the urine. Denies any urinary infections since last encounter. Review of Systems PHQ Score Initial Depression Screen Score: 5 SCORE Detailed Depression Screen Score: 15 Total Depression Screen Score: 20 ROS - Provider Constitutional: denies weight loss, denies hot flashes. Eyes: denies eye problems. Gastrointestinal: denies nausea, denies vomiting. Cardiovascular: denies chest pain or angina. Integumentary: no dryness Musculoskeletal: denies musculoskeletal symptoms. ENMT: denies otolaryngeal symptoms. Respiratory: no shortness of breath. Heme/Lymph: denies easy bleeding tendency, denies easy bruising tendency. Psychiatric: no confusion, severe anxiety. Genitourinary: See HPI. Physical Exam Vitals & Measurements HR: 69(Peripheral) RR: 18 BP: 121/79 HT: 72 in HT: 184 cm WT: 160 kg WT: 352.739 lb BMI: 47.26 General Appearance: alert, no distress, well nourished, well developed male. Penis: Known buried phallus from excess suprapubic fat pad, dorsal incision healing adequately, still raw and mildly bleeding with attempted retraction, unable to fully expose phallus, glans is still mobile underneath tissue, meatus exposed. No purulence. Assessment/Plan 64 yo male with hx of anxiety, diabetes, CKD, kidney stones, hyperparathyroidism initially referred by Dr. Fani Dill for nephrolithiasis. Presents for f/up to recent dorsal slit. Pt accompanied by today. Denies hx of CVA or PR. Not on anticoagulation. PSH ~appendectomy. ANTONIO 0 (0) Not a priority. 1. Phimosis (N47.1: Phimosis) Acquired buried penis. Reports he has been circumcised in the past however his foreskin is constricted. Physical exam 04/18/24 ~severe phimosis. Near pin point opening. UCx 05/05/24 - 3k mixed skin contam Prescribed triamcinolone 0.1% cream bid x 2 weeks 04/18/24. S/p dorsal slit 05/15/24. Severely scarred pinpoint phimosis, scrotalized phallus, multiple dorsal slits needed to expose phallus, very poor underlying tissue/scar. Path ~fibroconnective tissue with chronic inflammation. Results reviewed with pt and his . Pt's , Santo called our office 05/16/24 stating she was having difficulty placing gauze while trying to expose the buried penis. We recommended applying ointment to the incision without the gauze. Reports he has noticed improvement in voiding since procedure. Strongly encouraged pt to lose weight. Offered referral to plastic surgeon or reconstructive urologist for buried penis repair. Wishes to consider. Encouraged pt's to avoid applying steroid cream for at least another week to avoid delayed healing vs rescarring Thorough discussion regarding need to keep area clean after voiding, retracting surrounding skin throughout the day to prevent closure Pt has issue with depression and self care, per -Periodically expose penis at least 3x during the day to avoid scarring, hot showers -Keep area dry -Weight loss, dm control -Consider referral to plastic surgeon or reconstructive urologist Follow up in 2 mos or sooner if needed. 2. Kidney stone (N20.0: Calculus of kidney) Admitted 06/2022 with DAISY and CKD requiring hemodialysis. DAISY secondary to obstructing left ureteral stone. S/p cysto and stent placement in [place]. Per referral notes, pt is no longer followin (more content not included)... [facility] Comment on above: Result Comment: Elec tronically Signed By: Sun Quach MD\.br\Date and Time Signed: 05/30/24 09:17 EST\.br\Electronically Co-Signed By: Eugenie Zabala\.br\Date and Time Co-Signed: 05/30/24 09:01 EST Surgical Pathology Reporton 05-17-2024 Surgical Pathology Report [facility] [address] [place] [address]- Surgical Pathology Report Collected Date/Time: 05/15/2024 08:05 EST Pathologist: Sabrina Duarte MD Received Date/Time: 05/15/2024 10:50 EST Main ROMERO, Sun Quach MD, Sun Fabian Surgical Pathology Report - 05/17/2024 14:55 EST - Auth (Verified) Final Diagnosis PHIMOSIS SCAR, EXCISION: --FIBROCONNECTIVE TISSUE WITH CHRONIC INFLAMMATION (Electronic Signature) Sadia. Felicia MD 05/17/2024 14:55 Clinical Information Phimosis Pre-Op Diagnosis: Phimosis Procedure: Dorsal slit circumcision Post-Op Diagnosis: Phimosis Specimen(s) Received Phimosis scar Gross Description Received in formalin labeled with patient name, number, and phimosis scar are multiple irregularly shaped fragments of negrete/red/pink firm granular tissue measuring in aggregate 2 x 2 x 0.7 cm. The tissue has a negrete/red firm granular appearance, and the larger pieces are trisected and the specimen is entirely submitted in one cassette. (DC) DC:[facility] Microscopic Description Microscopic examination performed unless gross only specified. This report was transcribed using voice recognition technology and might contain unintended computerized forklift technician errors. [facility] Comment on above: Performed By: #### [id number] #### [facility] [address] [place] [id number] Main OR Intraoperative Recor don 05-16-2024 Main OR Intraoperative Record Main OR Intraoperative Record IntraOp Document Type FT Summary Primary Physician: Sun Quach MD Finalized Date/Time: 05/16/24 12:51:45 Pt. Name: STEVEN WALDEN/Sex: 1960 Male Med Rec #: [id number] Physician: Sun Quach MD Financial #: [id number] Pt. Type: A Room/Bed: Admit/Disch: 05/15/24 05:30:19 - 05/15/24 10:50:00 Institution: Case Times FT Entry 1 Patient Times In Room 05/15/24 07:34:00 Out Room 05/15/24 08:43:00 Procedure Times Start 05/15/24 07:50:00 Stop 05/15/24 08:40:00 Anesthesia Times Start 05/15/24 07:34:00 Stop 05/15/24 08:43:00 Last Modified By: Nadia Erickson Ii 05/15/24 08:48:16 General Comments: 05/16/24 Chart opened to review and send charges LRoth CSFA Case Attendance FT Entry 1 Entry 2 Entry 3 Case Attendee Laury MARR, FIELD FOREMAN, Queen Main ROMERO, Sun Collado HEARING CONSULTANT, Channing Yeboah Role Performed FIELD FOREMAN Surgeon - Primary HEARING CONSULTANT/SA Time In 05/15/24 07:34:00 05/15/24 07:47:00 05/15/24 07:34:00 Time Out 05/15/24 08:43:00 05/15/24 08:43:00 05/15/24 08:43:00 Procedure CIRCUMCISION ADULT(.) CIRCUMCISION ADULT(.) CIRCUMCISION ADULT(.) Comments DR. GALVAN BEET WORKER ASSIST Last Modified By: Nadia Erickson Ii, Alfons Ii F Letrondo, Alfons Ii F 05/15/24 08:48:17 05/15/24 08:48:17 05/15/24 08:48:17 Entry 4 Entry 5 Case Attendee Merle Anaya Alfons Ii F Role Performed Scrub - Primary Sox Analyst - Primary Time In 05/15/24 07:34:00 05/15/24 07:34:00 Time Out 05/15/24 08:43:00 05/15/24 08:43:00 Procedure CIRCUMCISION ADULT(.) CIRCUMCISION ADULT(.) Comments Last Modified By: Nadia Erickson Ii, Alfons Ii F 05/15/24 08:48:17 05/15/24 08:48:17 General Comments: ARNULFO RAI, STUDENT TECH IS SCRUBBING. /HAYDE REIDsurvey party chief Protocols FT Pre-Care Text: Implements protective measures prior to operative or invasive procedure, confirms identity before the operative or invasive procedure, verifies operative procedure, surgical site, and laterality Entry 1 Procedure(s) CIRCUMCISION ADULT(.) Patient Identity Birthday, ID Band Verified (select at Check, Patient least 2): Participation Consents / H and P Anesthesia Consent, Operative Site N/A Verified H&P, Surgery/Procedure Marking Verified Consent Surgical Site Yes Laterality Verified n/a Verified Procedure Verified Yes Correct Patient Yes Position Verified Availability Equipment, Medication Prep Dry No Verified (If Applicable) PreOp Antibiotic Yes Time Out Laury MARR, GUSTABO, Queen Gustavo Yeboah, Main ROMERO, Sun Bright, Tobias LORA, Jaclyn Toth Madison A, Nadia Erickson Ii F Time Out Complete 05/15/24 07:49:00 Outcomes Met? Yes Last Modified By: Nadia Erickson Ii 05/15/24 07:57:43 Post-Care Text: The patient is free from signs and symptoms of injury caused by extraneous objects Allergy Information FT Pre-Care Text: Verifies allergies Entry 1 Allergies Reviewed? Yes Allergies Reviewed Self/Patient With Outcomes Met? Yes Last Modified By: Nadia Erickson Ii 05/15/24 07:57:49 Post-Care Text: The patient received appropriate medication(s) safely administered during the perioperative period Surgical Procedures FT Entry 1 Procedure Description Procedure CIRCUMCISION ADULT Modifiers . Surgeon Description DORSAL SLIT/ CIRCUMCISION Primary Procedure Yes Primary Surgeon Main ROMERO, Sun Bright Start 05/15/24 07:50:00 Stop 05/15/24 08:40:00 Anesthesia Type General Surgical Service Urology Wound Class 2 - Clean-Contaminated Last Modified By: Nadia Erickson Ii 05/15/24 08:48:18 General Case Data FT Pre-Care Text: Classifies surgical wound, implements aseptic technique, initiates traffic control Entry 1 Case Information OR OR 6 FT Case Level Level 2 Wound Class 2 - Clean-Contaminated Specialty Urology ASA Class 3 Preop Diagnosis PHIMOSIS Postop Same As Preop Yes Postop Diagnosis PHIMOSIS Outcomes Met? Yes Last Modified By: Magaly Garvin CST 05/16/24 12:51:43 Post-Care Text: The patient is free from signs and symptoms of infection Skin Assessment (Pre Procedure) FT Pre-Care Text: Implements protective measures to prevent skin/ tissue injury due to thermal or mechanical sources Evaluates for signs and symptoms of physical injury to skin and tissue Entry 1 Skin Integrity Intact, [place], Warm, & Skin Abnormality Yes Dry Abnormality Location BOTH GROIN Abnormality Type REDNESS AND IRRITATION Outcomes Met? Yes Last Modified By: Nadia Erickson Ii 05/15/24 07:58:49 Post-Care Text: The patient is free from signs and symptoms of injury caused by extraneous objects Patient Positioning FT Pre-Care Text: Identifies physical alterations that require additional precautions for procedure-specific positioning, verifies presence of prosthetics or corrective devices, positions the patient, evaluates the patient for signs and symptoms of injury as a resu (more content not included)... [facility] CHEMISTRYOrdered By: Lab ROP User on 05-15-2024 Glucose [Mass/Vol] 278 mg/dL High 55 - 99 mg/dL FT C POC Subsection Comment on above: Result Comment: Lucretia jay jay Meter POC Username DOMINGA SILVERMAN Invalid Interpretation Code [facility] POC Subsection Sodium [Moles/Vol] [id number] mmol/L Invalid Interpretation Code [facility] [place] Subsection Sodium [Moles/Vol] [id number] mmol/L Invalid Interpretation Code [facility] [place] Subsection Capillary Glucose POCon Glucose [Mass/Vol] 278 mg/dL High 55-99 [facility] Comment on above: Result Comment: Lucretia jay jay Meter Performed By: #### [id number] ####[facility] [address] [place] [address] Discharge Instructionson Discharge Instructions Discharge Instructions STEVEN WALDEN :1960 Visit Date:05/15/2024 Inpatient Discharge Instructions Your Care Team Admitting Physician - Sun Quach MD Referring Physician - Sun Quach MD Reason for Your Visit PHIMOSIS Your Diagnosis Phimosis Tests Performed Pathology Tissue Exam -- Results Pending -- Please visit your patient portal for your results or contact your primary care physician. This Is Your Medications List [facility] Prescription (#####) acetaminophen-hydroco done (Dayton 325 mg-5 mg oral tablet) allopurinol (allopurinol 100 mg Tab) atorvastatin (atorvastatin 20 mg Tab) cephalexin (Keflex 500 mg Cap) dulaglutide (Trulicity 1.5 mg/0.5 mL subcutaneous solution) ferrous sulfate (ferrous sulfate 325 mg Tab) folic acid (folic acid 1 mg Tab) furosemide (furosemide 40 mg Tab) insulin regular (HumuLIN R KwikPen (Concentrated) human recombinant 500 units/mL subcutaneous solution) magnesium oxide midodrine (midodrine 2.5 mg oral tablet) omeprazole (omeprazole 40 mg Cap-DR) potassium chloride (potassium chloride 20 mEq ER Tab) quetiapine (quetiapine 200 mg Tab) sertraline (sertraline 100 mg Tab) sodium bicarbonate (sodium bicarbonate 650 mg Tab) tadalafil (tadalafil 5 mg oral tablet) valbenazine (Ingrezza 60 mg oral capsule) [Image Removed: STOP]Stop taking these medications triamcinolone topical (triamcinolone Top 0.1% Crm 15 gram) Procedure History Cholecystectomy, Cystoscopy, Insertion of catheter into heart chamber, Open reduction and internal fixation of fracture, Removal of stent. What to do next Instructions From Your Doctor Event Name Event Result Discharge Instructions Freetext Keep incision wrapped with xeroform gauze daily. Apply polysporin to incision twice a day. Gauze twice a day to help protect clothing. OK to shower after 24 hours. No soaking in tubs, pools. Discharge Activity Ambulate as tolerated, Expect mild pain, Expect minimal amount of drainage and/or bleeding, Activity as tolerated Discharge Restrictions No driving for 24 hrs Discharge Diet(s) Regular Call Your Doctor For Persistent or heavy bleeding, Temperature above 101.5 degrees, Redness, swelling, or pus at operative site, Severe pain at the operative site, Persistent vomiting Discharge Instructions Discharge Instructions New Follow Up Appointments after Discharge Follow Up with Sun Quach When: Comments: Call for followup appointment in 2-3 weeks for postop check Where: [address] [place] [phone] Business (1) Medications What How Much When Instructions Next Dose New acetaminophen-hydroco done (Dayton 325 mg-5 mg oral tablet) 1 Tablets By Mouth Every 6 hours as needed for for severe pain Duration: 3 Days Pickup at [facility]/pharmacy #[id number] New cephalexin (Keflex 500 mg Cap) 1 Capsules By Mouth Every 12 hours postop Pickup at [facility]/pharmacy #[id number] Unchanged allopurinol (allopurinol 100 mg Tab) 1 Tablets By Mouth Every day Unchanged atorvastatin (atorvastatin 20 mg Tab) 1 Tablets By Mouth Every day 90 EA, 0 Refill(s), TAKE 1 TABLET BY MOUTH AT BEDTIME Unchanged dulaglutide (Trulicity 1.5 mg/ 0.5 mL subcutaneous solution) See instructions On Mondays Unchanged ferrous sulfate (ferrous sulfate 325 mg Tab) 1 Tablets By Mouth Every day 180 EA, 0 Refill(s), TAKE 1 TABLET BY MOUTH TWICE A DAY Unchanged folic acid (folic acid 1 mg Tab) 1 Tablets By Mouth Every day Unchanged furosemide (furosemide 40 mg Tab) 1 Tablets By Mouth Every day 90 EA, 0 Refill(s), TAKE 1 TABLET BY MOUTH DAILY Unchanged insulin regular (HumuLIN R KwikPen (Concentrated) human recombinant 500 units/ mL subcutaneous solution) 30 mL, 0 Refill(s), INJECT 30 - 40 - 50 UNITS SUBCUTANEOUSLY TWICE A DAY DIRECTED (EXPECT DOSE OF 150 UNITS DAILY) Unchanged magnesium oxide 400 Milligram By Mouth Every day Oral, 0 Refill(s) Unchanged midodrine (midodrine 2.5 mg oral tablet) 1 Tablets By Mouth Every day 90 EA, 0 Refill(s), TAKE 1 TABLET BY MOUTH 3 TIMES DAILY WITH MEALS hypotension Unchanged [facility] Prescription (#####) 0 200 EA, 0 Refill(s), USE DIRECTED UNDER THE SKIN TWICE DAILY Unchanged omeprazole (omeprazole 40 mg Cap-DR) 1 Capsules By Mouth Every day 14 EA, 0 Refill(s), TAKE 1 CAPSULE BY MOUTH IN THE MORNING BEFORE MEAL *MUST MAKE APPOINTMENT* Unchanged potassium chloride (potassium chloride 20 mEq ER Tab) 1 Tablets By Mouth Every day Oral, 0 Refill(s) Unchanged quetiapine (quetiapine 200 mg Tab) 1 Tablets By Mouth At bedtime Unchanged sertraline (sertraline 100 mg Tab) 1 Tablets By Mouth 2 times a day Unchanged sodium bicarbonate (sodium bicarbonate 650 mg Tab) 2 Tablets By Mouth 2 times a day 360 EA, 0 Refill(s), TAKE 2 TABLETS BY MOUTH TWICE A DAY Unchanged tadalafil (tadalafil 5 mg oral tablet) 1 Tablets By Mouth Every 72 hours Duration: 30 Days Unchanged valbenazine (Ingrezza 60 mg oral capsule) 1 Capsules By Mouth Every day 30 cap(s), (more content not included)... [facility] Comment on above: Result Comment: Elec tronically Signed By: Curtis ARIZA, Mala Dumont\.br\Date and Time Signed: 05/15/24 09:17 EST Inpatient Patient Summaryon 05-15-2024 Inpatient Patient Summary Inpatient Patient Summary [place] [id number] [facility] Clinical Discharge Instructions PERSON INFORMATION Name: STEVEN WALDEN [facility]ICIANS Admitting Physician: Sun Quach MD Attending Physician: Sun Quach MD PCP: DARION RANDLE MD Discharge Diagnosis: Phimosis Comment: PATIENT EDUCATION INFORMATION Instructions: Fausto Post-Op Instructions for Circumcision (Custom); Circumcision, Adult, Care After Medication Leaflets: Follow up: With: Address: When: Sun Main [facility] [place], [place] [phone] [facility] (1) Comments: Call for followup appointment in 2-3 weeks for postop check MEDICATION LIST New Medications [id number], [address] [place], [place] [phone], [phone] acetaminophen-hydroco done (Dayton 325 mg-5 mg oral tablet) 1 Tablets By Mouth every 6 hours as needed for severe pain for 3 Days. Refills: 0. cephalexin (Keflex 500 mg Cap) 1 Capsules By Mouth every 12 hours. postop. Refills: 0. Medications to Continue with No Changes Other Medications allopurinol (allopurinol 100 mg Tab) 1 Tablets By Mouth every day., Responsible Provider: DARION RANDLE atorvastatin (atorvastatin 20 mg Tab) 1 Tablets By Mouth every day. 90 EA, 0 Refill(s), TAKE 1 TABLET BY MOUTH AT BEDTIME., Responsible Provider: MEKA RUIZ dulaglutide (Trulicity 1.5 mg/0.5 mL subcutaneous solution) On Mondays. ferrous sulfate (ferrous sulfate 325 mg Tab) 1 Tablets By Mouth every day. 180 EA, 0 Refill(s), TAKE 1 TABLET BY MOUTH TWICE A DAY., Responsible Provider: FANI DILL folic acid (folic acid 1 mg Tab) 1 Tablets By Mouth every day. furosemide (furosemide 40 mg Tab) 1 Tablets By Mouth every day. 90 EA, 0 Refill(s), TAKE 1 TABLET BY MOUTH DAILY., Responsible Provider: FANI DILL insulin regular (HumuLIN R KwikPen (Concentrated) human recombinant 500 units/mL subcutaneous solution) 30 mL, 0 Refill(s), INJECT 30 - 40 - 50 UNITS SUBCUTANEOUSLY TWICE A DAY DIRECTED (EXPECT DOSE OF 150 UNITS DAILY)., Responsible Provider: FRANCISCO HOUSER magnesium oxide 400 Milligram By Mouth every day. Oral, 0 Refill(s). midodrine (midodrine 2.5 mg oral tablet) 1 Tablets By Mouth every day. 90 EA, 0 Refill(s), TAKE 1 TABLET BY MOUTH 3 TIMES DAILY WITH MEALS hypotension., Responsible Provider: NATALIYA DUNN [facility] Prescription (#####) 0. 200 EA, 0 Refill(s), USE DIRECTED UNDER THE SKIN TWICE DAILY., Responsible Provider: DARION RANDLE omeprazole (omeprazole 40 mg Cap-DR) 1 Capsules By Mouth every day. 14 EA, 0 Refill(s), TAKE 1 CAPSULE BY MOUTH IN THE MORNING BEFORE MEAL *MUST MAKE APPOINTMENT*., Responsible Provider: DARION RANDLE potassium chloride (potassium chloride 20 mEq ER Tab) 1 Tablets By Mouth every day. Oral, 0 Refill(s). quetiapine (quetiapine 200 mg Tab) 1 Tablets By Mouth at bedtime. sertraline (sertraline 100 mg Tab) 1 Tablets By Mouth 2 times a day., Responsible Provider: LEXIS KEEN sodium bicarbonate (sodium bicarbonate 650 mg Tab) 2 Tablets By Mouth 2 times a day. 360 EA, 0 Refill(s), TAKE 2 TABLETS BY MOUTH TWICE A DAY., Responsible Provider: FANI DILL tadalafil (tadalafil 5 mg oral tablet) 1 Tablets By Mouth every 72 hours for 30 Days. Refills: 11. valbenazine (Ingrezza 60 mg oral capsule) 1 Capsules By Mouth every day. 30 cap(s), 0 Refill(s) Tardive dyskinesia., Responsible Provider: Gordo Low No Longer Take the Following Medications triamcinolone topical (triamcinolone Top 0.1% Crm 15 gram) 1 Application Topical 2 times a day for 2 Weeks. apply a thin film to penile head skin twice a day for 2 weeks. Refills: 1. Comment: [facility] Main OR PACU I Recordon 0 Main OR PACU I Record Main OR PACU I Rec ord PACU Phase I Document Type FT Summary Primary Physician: Sun Quach MD Finalized Date/Time: 05/15/24 10:23:22 Pt. Name: STEVEN WALDEN /Sex: 1960 Male Med Rec #: [id number] Physician: Sun Quach MD Financial #: [id number] Pt. Type: A Room/Bed: [facility] Admit/Disch: 05/15/24 05:30:19 - Institution: Case Times PACU I FT Pre-Care Text: Identifies barriers to communication and implements measures to provide psychological support Develops individualized plan of care, and ensures continuity of care Maintains patient's dignity and privacy, and maintains patient confidentiality Identifies and reports philosophical, cultural, and spiritual beliefs and values Identifies individual values and wishes concerning care Implements aseptic technique, and administers prescribed antibiotic therapy and immunizing agents as ordered Evaluates postoperative tissue perfusion Implements thermoregulation measures, and monitors body temperature Evaluates postoperative respiratory status Evaluates postoperative cardiac status Evaluates postoperative neurological status Assesses pain control, collaborated in initiating patient-controlled analgesia and implements alternative methods of pain control Verifies allergies, administers prescribed medications and solutions, evaluates response to medications Entry 1 In PACU I 05/15/24 08:45:00 Discharge from PACU 05/15/24 09:15:00 I Outcomes Met? Yes Last Modified By: Lisset Yung RN 05/15/24 10:23:01 Post-Care Text: The patient demonstrates knowledge of the expected response to the operative or invasive procedure The patient's care is consistent with the individualized perioperative plan of care The patient's right to privacy is maintained The patient's value system, lifestyle, ethnicity, and culture are considered, respected, and incorporated into the perioperative plan of care The patient participates in decisions affecting his or her perioperative plan of care The patient is free from signs and symptoms of infection The patient has wound/tissue perfusion consistent with or improved from baseline levels established preoperatively The patient is at or returning to normothermia at the conclusion of the immediate postoperative period The patient's respiratory function is consistent with or improved from baseline levels established preoperatively The patient's cardiovascular status is consistent with or improved from baseline levels established preoperatively The patient's cardiovascular status is consistent with or improved from baseline levels established preoperatively The patient demonstrates and/or reports adequate pain control throughout the perioperative period The patient received appropriate medication(s), safely administered during the perioperative period Acuity Level PACU I FT Entry 1 Start Time 05/15/24 08:45:00 Stop Time 05/15/24 09:15:00 Acuity Level Acuity Level I Last Modified By: Lisset Yung RN 05/15/24 10:23:17 Finalized By: Lisset Yung RN Document Signatures Signed By: Lisset Yung RN 05/15/24 10:23 Normal [facility] Main OR PACU II Recordon Main OR PACU II Record Main OR PACU II Record PACU Phase II Document Type FT Summary Primary Physician: Sun Quach MD Finalized Date/Time: 05/15/24 10:55:37 Pt. Name: STEVEN WALDEN/Sex: 1960 Male Med Rec #: [id number] Physician: Sun Quach MD Financial #: [id number] Pt. Type: A Room/Bed: [place] [address] Admit/Disch: 05/15/24 05:30:19 - Institution: Case Times PACU II FT Pre-Care Text: Identifies barriers to communication and implements measures to provide psychological support and determines knowledge level Develops individualized plan of care, and ensures continuity of care Maintains patient's dignity and privacy, and maintains patient confidentiality Identifies and reports philosophical, cultural, and spiritual beliefs and values Identifies individual values and wishes concerning care administers prescribed antibiotic therapy and immunizing agents as ordered, Evaluates postoperative tissue perfusion Implements thermoregulation measures, and monitors body temperature Evaluates postoperative respiratory status Evaluates postoperative cardiac status Evaluates postoperative neurological status Assesses pain control, collaborated in initiating patient-controlled analgesia and implements alternative methods of pain control Verifies allergies, administers prescribed medications and solutions, evaluates response to medications Entry 1 In PACU II 05/15/24 09:20:00 Discharge from PACU 05/15/24 10:50:00 II Outcomes Met? Yes Last Modified By: Mala Acevedo RN 05/15/24 10:55:35 Post-Care Text: The patient demonstrates knowledge of the expected response to the operative or invasive procedure The patient's care is consistent with the individualized perioperative plan of care The patient's right to privacy is maintained The patient's value system, lifestyle, ethnicity, and culture are considered, respected, and incorporated into the perioperative plan of care The patient participates in decisions affecting his or her perioperative plan of care. The patient is free from signs and symptoms of infection The patient has wound/tissue perfusion consistent with or improved from baseline levels established preoperatively The patient is at or returning to normothermia at the conclusion of the immediate postoperative period The patient's respiratory function is consistent with or improved from baseline levels established preoperatively The patient's cardiovascular status is consistent with or improved from baseline levels established preoperatively The patient's neurological status is consistent with or improved from baseline levels established preoperatively The patient demonstrates and/or reports adequate pain control throughout the perioperative period The patient received appropriate medication(s), safely administered during the perioperative period Finalized By: Mala Acevedo RN Document Signatures Signed By: Mala Acevedo RN 05/15/24 10:55 Normal [facility] Main OR Preoperative Recordo n 05-15-2024 Main OR Preoperative Record Main OR Preoperative Record PreOp Document Type FT Summary Primary Physician: Sun Quach MD Finalized Date/Time: 05/15/24 07:52:12 Pt. Name: STEVEN WALDEN Kike Guido/Sex: 1960 Male Med Rec #: [id number] Physician: Sun Quach MD Financial #: [id number] Pt. Type: A Room/Bed: [place] [address] Admit/Disch: 05/15/24 05:30:19 - Institution: Case Times PreOp FT Pre-Care Text: Verifies consent for planned procedure, identifies individual values and wishes concerning care, includes family members in perioperative teaching Entry 1 Patient Times. In Pre Surgery 05/15/24 05:50:00 Out Pre Surgery 05/15/24 07:32:00 Outcomes Met? Yes Last Modified By: Nadia Erickson Ii 05/15/24 07:52:10 Post-Care Text: The patient participates in decisions affecting his or her perioperative plan of care Finalized By: Nadia Erickson Ii Document Signatures Signed By: Nadia Erickson Ii 05/15/24 07:52 Normal [facility] Operative Reporton Operative Report Operative Report Patient: STEVEN WALDEN Age: 64 years Sex: Male : 1960 Associated Diagnoses: None Author: Sun Quach MD Procedure Procedure Date: 05/15/2024. Confirmed: patient, procedure, site, safety procedures followed. Performed by: Sun Quach MD, anesthesiologist ([facility]). Type of procedure: Dorsal slit . Informed consent: signed by patient. Indication: 64 year old male with longstanding severe phimosis with buried penis who presents today for dorsal slit to expose meatus to assist with urination. He was thoroughly counseled on the risks including but not limited to bleeding, pain, infection, damage to surrounding structures, recurrence of scarring, continued buried phallus, glans necrosis, skin separation, among others. . 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 Foreskin adherant to glans and garcia. Still unable to expose glans with just dorsal slit, secondary incisions were made at the 3 and 9 o clock positions to allow freely moving foreskin. Pale, scarred glans. Dense scar tissue pulled away easily and sent for pathology. Dorsal skin sutured to garcia due to lack of shaft skin. Ventral garcia/foreskin , left to heal via secondary intention. . Procedure tolerated: well. Specimen: sent to pathology, phimosis scar . Complications: none. Procedure description: Prior to the operating room, informed consent was obtained for the procedure as described above. The patient was then taken to the operating suite where a final time out was taken to confirm the patient and the procedure. General anesthesia LMA was administered, he received IV antibiotics and the patient was positioned in the supine position. He was sterilely prepped and draped in the standard fashion for this procedure. Local 1% lidocaine/marcaine 0.25% was injected for penile ring block. A straight hemostat was used to separate foreskin from glans. Midline dorsal skin was clamped. The needle tip cautery was then used to incise the foreskin in a sequential fashion until the phimosis band was released. The tight phimotic ring contined deep and was adherant to the garcia and glans. Still unable to expose glans with just dorsal slit, secondary incisions were made at the 3 and 9 o clock positions to allow freely moving foreskin. Dense scar tissue was pulled away easily and sent for pathology. Pale, scarred glans was noted, off center meatus. Pinpoint hemostasis was achieved. Dorsal skin was sutured to garcia using interrupted 4-0 monocryl sutures due to lack of shaft skin. Ventral garcia/foreskin during exposure of glans, left to heal via secondary intention to prevent circumferential scarring and recurrence of phimosis. Dorsal penile block was performed. Xeroform gauze, fluffs and scortal support were applied. Unable to wrap phallus circumferentially with gauze/coban. The patient tolerated the procedure well without complication. Patient Condition: stable Plan: Discharge home, wound instructions applying antibiotic ointment and xeroform gauze were provided. Prophylactic antibiotics and pain meds sent. Follow up in 2-3 weeks for wound check. . Impression and Plan Diagnosis Phimosis ([id number] N47.1, Discharge, Medical). Diagnosis Phimosis ([id number] N47.1, Discharge, Medical). Normal [facility] Comment on above: Result Comment: Elec tronically Signed By: Sun Quach MD\.br\Date and Time Signed: 05/15/24 09:09 EST Outpatient Surgery Discharge Instructionon 05-15-2024 Outpatient Surgery Discharge Instruction Outpatient Surgery Discharge Instruction [place] [id number] Patient Discharge Instructions PERSON INFORMATION Name: STEVEN WALDEN Date of : 1960 Current Date: 05/15/2024 08:53:23 PHYSICIANS Admitting Physician: Sun Quach MD Discharge Diagnosis: Phimosis STEVEN WALDEN has been given the following list of follow-up instructions, prescriptions, and patient education materials: PATIENT FOLLOW-UP INFORMATION Diet: Regular Discharge Activity: Ambulate as tolerated, Expect mild pain, Expect minimal amount of drainage and/or bleeding, Activity as tolerated Discharge Restrictions: No driving for 24 hrs Call Your Doctor For: Persistent or heavy bleeding, Temperature above 101.5 degrees, Redness, swelling, or pus at operative site, Severe pain at the operative site, Persistent vomiting Additional Instructions: Keep incision wrapped with xeroform gauze daily. Apply polysporin to incision twice a day. Gauze twice a day to help protect clothing. OK to shower after 24 hours. No soaking in tubs, pools. IF UNABLE TO CONTACT YOUR PHYSICIAN AND YOU FEEL IT IS AN EMERGENCY, GO TO THE NEAREST EMERGENCY ROOM OR CALL 911 WIN Jean MARK R, have received the attached patient education materials/instruction s and have verbalized understanding: May we do a follow up call? Yes No I was present when discharge instructions were given Patient Signature Date Clinican/Nurse Signature Date Follow up: With: Address: When: Sun Quach [address] [place], [place] [address] [id number] [phone] Business (1) Comments: Call for followup appointment in 2-3 weeks for postop check Pharmacy Information: You may receive a survey from [employer] asking you to rate your care experience. Your feedback is important and will help us understand what we do well and how we can improve the quality of care we provide to you, your loved ones and our community. It???s an honor to serve you. Thank you for choosing [facility] HERE ARE THE MEDICATION CHANGES THAT OCCURRED DURING YOUR HOSPITAL STAY New Medications [id number], [address] [place], [place] [id number], [phone] acetaminophen-hydroco done ([place] 325 mg-5 mg oral tablet) 1 Tablets By Mouth every 6 hours as needed for severe pain for 3 Days. Refills: 0. cephalexin (Keflex 500 mg Cap) 1 Capsules By Mouth every 12 hours. postop. Refills: 0. Medications to Continue with No Changes Other Medications allopurinol (allopurinol 100 mg Tab) 1 Tablets By Mouth every day., Responsible Provider: DARION RANDLE atorvastatin (atorvastatin 20 mg Tab) 1 Tablets By Mouth every day. 90 EA, 0 Refill(s), TAKE 1 TABLET BY MOUTH AT BEDTIME., Responsible Provider: MEKA RUIZ dulaglutide (Trulicity 1.5 mg/0.5 mL subcutaneous solution) On Mondays. ferrous sulfate (ferrous sulfate 325 mg Tab) 1 Tablets By Mouth every day. 180 EA, 0 Refill(s), TAKE 1 TABLET BY MOUTH TWICE A DAY., Responsible Provider: FANI DILL folic acid (folic acid 1 mg Tab) 1 Tablets By Mouth every day. furosemide (furosemide 40 mg Tab) 1 Tablets By Mouth every day. 90 EA, 0 Refill(s), TAKE 1 TABLET BY MOUTH DAILY., Responsible Provider: FANI DILL insulin regular (HumuLIN R KwikPen (Concentrated) human recombinant 500 units/mL subcutaneous solution) 30 mL, 0 Refill(s), INJECT 30 - 40 - 50 UNITS SUBCUTANEOUSLY TWICE A DAY DIRECTED (EXPECT DOSE OF 150 UNITS DAILY)., Responsible Provider: FRANCISCO HOUSER magnesium oxide 400 Milligram By Mouth every day. Oral, 0 Refill(s). midodrine (midodrine 2.5 mg oral tablet) 1 Tablets By Mouth every day. 90 EA, 0 Refill(s), TAKE 1 TABLET BY MOUTH 3 TIMES DAILY WITH MEALS hypotension., Responsible Provider: NATALIYA DUNN [facility] Prescription (#####) 0. 200 EA, 0 Refill(s), USE DIRECTED UNDER THE SKIN TWICE DAILY., Responsible Provider: DARION RANDLE omeprazole (omeprazole 40 mg Cap-DR) 1 Capsules By Mouth every day. 14 EA, 0 Refill(s), TAKE 1 CAPSULE BY MOUTH IN THE MORNING BEFORE MEAL *MUST MAKE APPOINTMENT*., Responsible Provider: DARION RANDLE potassium chloride (potassium chloride 20 mEq ER Tab) 1 Tablets By Mouth every day. Oral, 0 Refill(s). quetiapine (quetiapine 200 mg Tab) 1 Tablets By Mouth at bedtime. sertraline (sertraline 100 mg Tab) 1 Tablets By Mouth 2 times a day., Responsible Provider: LEXIS KEEN sodium bicarbonate (sodium bicarbonate 650 mg Tab) 2 Tablets By Mouth 2 times a day. 360 EA, 0 Refill(s), TAKE 2 TABLETS BY MOUTH TWICE A DAY., Responsible Provider: FANI DILL tadalafil (tadalafil 5 (more content not included)... Normal [facility] Glucose (Bld) [Mass/Vol]on 0 05-10-2024 Glucose Blood, POC 96 mg/dL [facility] Interpretation and review of laboratory results Normal [facility] HbA1c (Bld) [Mass fraction]o n 05-10-2024 Interpretation and review of laboratory results Abnormal [facility] Laboratory - Hematology and Cell countson 05-10-2024 HbA1c (Bld) [Mass fraction] 8.1 % [facility] No Panel Informationon 05-10 [facility] C Urineon 05-05-2024 Bacteria identified Cx [facility] (U) Microbiology PROCEDURE: Urine Culture [R1] SOURCE: U CleanCatch BODY SITE: COLLECTED DATE/TIME: 05/03/2024 08:45 EST RECEIVED DATE/TIME: 05/03/2024 13:57 EST START DATE/TIME: 05/03/2024 13:57 EST FREE TEXT SOURCE: Main ROMERO, Sun Quach MD, Sun Bright FINAL REPORTS Final Report [] Verified Date/Time: 05/05/2024 09:28 EST 3,000 cfu/ml Mixed skin contaminants Performing Locations R1: This test was performed at: [facility], [address] [place] [address], [id number] , [place], Normal [facility] Comment on above: Performed By: #### 2 [id number] #### [facility] [address] [place] [address] BMPon 05-03-2024 Anion gap [Moles/Vol] 15 mmol/L Normal 6-16 [facility] Comment on above: Performed By: #### 2 [id number] #### [facility] [address] [place] [address] Calcium [Mass/Vol] 9.5 mg/dL Normal 8.9-11.1 [facility] Comment on above: Performed By: #### 2 [id number] #### [facility] [address] [place] [address] Chloride [Moles/Vol] 103 mmol/L Normal 101-111 [facility] Comment on above: Performed By: #### 2 [id number] #### [facility] [address] [place] [address] CO2 [Moles/Vol] 20 mmol/L Low 21-31 [facility] Comment on above: Performed By: #### 2 [id number] #### [facility] [address] [place] [address] Creatinine [Mass/Vol] 2.2 mg/dL High 0.5-1.3 [facility] Comment on above: Performed By: #### 2 [id number] #### [facility] [address] [place] [address] Glucose [Mass/Vol] 130 mg/dL Normal 55-199 [facility] Comment on above: Performed By: #### 2 [id number] #### [facility] [address] [place] [address] Potassium [Moles/Vol] 3.5 mmol/L Normal 3.5-5.3 [facility] Comment on above: Performed By: #### 2 [id number] #### [facility] [address] [place] [address] Sodium [Moles/Vol] 134 mmol/L Low 135-145 [facility] Comment on above: Performed By: #### 2 [id number] #### [facility] [address] [place] [address] Urea nitrogen [Mass/Vol] 45 mg/dL High 5-21 [facility] Comment on above: Performed By: #### 2 [id number] #### [facility] [address] [place] [address] Urea nitrogen/Creatinine [Mass ratio] 20 No Units Normal 10-20 [facility] Comment on above: Performed By: #### 2 [id number] #### [facility] [address] [place] [address] CBC w/ Auto Diffon 5 Basophils/100 WBC (Bld) 0.8 % Normal 0.0-2.0 [facility] Comment on above: Performed By: #### 2 [id number] #### [facility] [address] [place] [address] Basophils/Leukocytes Auto (Bld) [Pure # fraction] 0.1 E9/L Normal 0.0-0.2 [facility] Comment on above: Performed By: #### 2 [id number] #### [facility] [address] [place] [address] Eosinophils (Bld) [#/Vol] 0.3 E9/L Normal 0.0-0.5 [facility] Comment on above: Performed By: #### 2 [id number] #### [facility] [address] [place] [address] Eosinophils/100 WBC (Bld) 3.3 % Normal 0.0-8.0 [facility] Comment on above: Performed By: #### 2 [id number] #### [facility] [address] [place] [address] Erythrocyte distribution width (RBC) [Ratio] 13.8 % Normal 10.9-14.2 [facility] Comment on above: Performed By: #### 2 [id number] #### [facility] [address] [place] [address] Hematocrit (Bld) [Volume fraction] 43.1 % Normal 37.7-49.0 [facility] Comment on above: Performed By: #### 2 [id number] #### [facility] [address] [place] [address] Hemoglobin (Bld) [Mass/Vol] 15.1 g/dL Normal 13.5-17.5 [facility] Comment on above: Performed By: #### 2 [id number] #### [facility] [address] [place] [address] Lymphocytes (Bld) [#/Vol] 3.0 E9/L Normal 1.0-4.0 [facility] Comment on above: Performed By: #### 2 [id number] #### [facility] [address] [place] [address] Lymphocytes/100 WBC (Bld) 28.8 % Normal 14.0-50.0 [facility] Comment on above: Performed By: #### 2 [id number] #### [facility] [address] [place] [address] MCH (RBC) [Entitic mass] 30.4 pg Normal 27.0-34.0 [facility] Comment on above: Performed By: #### 2 [id number] #### [facility] [address] [place] [address] MCHC (RBC) [Mass/Vol] 35.1 g/dL Normal 31.4-36.0 [facility] Comment on above: Performed By: #### 2 [id number] #### [facility] [address] [place] [address] MCV (RBC) [Entitic vol] 86.6 fL Normal 80.0-100.0 [facility] Comment on above: Performed By: #### 2 [id number] #### [facility] [address] [place] [address] Monocytes (Bld) [#/Vol] 0.9 E9/L Normal 0.2-1.0 [facility] Comment on above: Performed By: #### 2 [id number] #### [facility] [address] [place] [address] Neutrophils (Bld) [#/Vol] 6.1 E9/L Normal 2.0-7.5 [facility] Comment on above: Performed By: #### 2 [id number] #### [facility] [address] [place] [address] Neutrophils/100 WBC (Bld) 58.2 % Normal 36.0-75.0 [facility] Comment on above: Performed By: #### 2 974179 #### [facility] [address] [place] [address] Platelet 270.0 E9/L Normal 150.0-500.0 [facility] Comment on above: Performed By: #### 2 [id number] #### [facility] [address] [place] [address] Platelet mean volume (Bld) [Entitic vol] 7.9 fL Normal 6.4-10.8 [facility] Comment on above: Performed By: #### 2 [id number] #### [facility] [address] [place] [address] RBC (Bld) [#/Vol] 5.0 E12/L Normal 4.3-5.9 [facility] Comment on above: Performed By: #### 2 [id number] #### [facility] [address] [place] [address] WBC corrected for nucl RBC Auto (Bld) [#/Vol] 10.5 E9/L Normal 4.0-11.0 [facility] Comment on above: Performed By: #### 2 [id number] #### [facility] [address] [place] [address] CHEMISTRYOrdered By: SYSTEM SYSTEM on 05-03-2024 Anion gap [Moles/Vol] 15 mmol/L Normal 6 - 16 mEq/L R emisol Chem Calcium [Mass/Vol] 9.5 mg/dL Normal 8.9 - 11. 1 mg/dL [facility] Chloride [Moles/Vol] 103 mmol/L Normal 101 - 1 11 mmol/L [facility] CO2 [Moles/Vol] 20 mmol/L Low 21 - 31 mmol/L [facility] Creatinine [Mass/Vol] 2.2 mg/dL High 0.5 - 1.3 mg/dL [facility] eGFR 33 mL/min/1.73 m2 Low >=59mL/min /1. 73 m2 [facility] Glucose [Mass/Vol] 130 mg/dL Normal 55 - 199 mg/dL [facility] Potassium [Moles/Vol] 3.5 mmol/L Normal 3.5 - 5.3 mmol/L [facility] Sodium [Moles/Vol] 134 mmol/L Low 135 - 145 mmol/L [facility] Urea nitrogen [Mass/Vol] 45 mg/dL High 5 - 21 mg/dL [facility] Urea nitrogen/Creatinine [Mass ratio] 20 mg/mg Normal 10 - 20 [facility] COAGULATIONOrdered By: Lowell Solorzano on 05-03-2024 aPTT Coag (PPP) [Time] 30.5 s Normal 25.1 - 36.5 second(s) [facility] Comment on above: Interpretive Data: Juju bird 15 days - 4 weeks 1 - 5 months 6 - 11 months 1 - 5 years 6 - 10 years 11 - 17 years PTT Mean: 35.4 (27.6-45.6) Mean: 33.5 (24.8-40.7) Mean: 32.4 (25.1-40.7) Mean: 31.6 (24.0-39.2) Mean: 31.6 (26.9-38.7) Mean: 31.0 (24.6-38.4) Pediatric Reference ranges were obtained from a study by Ron Deshpande et al. prepared from 1437 samples obtained at 7 different centers using the same coagulation reagent and instrumentation as [facility]. Currently there are no coagulation studies available worldwide for children to 14 days, and no normal ranges. Heparin therapeutic range (represented by Anti-Factor Xa activity of 0.2 - 0.4 U/mL) corresponds to PTT of 56.6 - 109.0 sec. INR Coag (PPP) [Relative time] 1.04 {INR} Invalid Interpretation Code [facility] Comment on above: Interpretive Data: I NR results are specifically intended to assess patients stabilized on long-term Anticoagulation therapy suggested INR s Less Intensive Anticoagulation 2.0 3.0 Conventional Range 3.0 4.5 PT Coag (PPP) [Time] 11.7 s Normal 9.4 - 1 2.5 second(s) [facility] Comment on above: Interpretive Data: 1 5 days - 4 weeks 1 - 5 months 6 -11 months 1-5 years 6-10 years 11 -17 years Mean: 11.2 (9.5-12.6) Mean: 11.0 (9.7-12.8) Mean: 11.0 (9.8-13.0) Mean: 11.3 (9.9-13.4) Mean: 11.7 (10.0-14.6) Mean: 11.8 (10.0 - 14.1) Pediatric Reference ranges were obtained from a study by Ron Deshpande et al. prepared from 1437 samples obtained at 7 different centers using the same coagulation reagent and instrumentation as [facility]. Currently there are no coagulation studies available worldwide for children to 14 days, and no normal ranges. HEMATOLOGYOrdered By: SYSTEM SYSTEM on 05-03-2024 Basophils/100 WBC (Bld) 0.8 % Normal 0.0 - 2.0 % Remisol Heme Basophils/Leukocytes Auto (Bld) [Pure # fraction] 0.1 E9/L Normal 0.0 - 0.2 E9/L [facility]e Eosinophils (Bld) [#/Vol] 0.3 E9/L Normal 0.0 - 0.5 E9/L [facility] Eosinophils/100 WBC (Bld) 3.3 % Normal 0.0 - 8.0 % [facility] Erythrocyte distribution width (RBC) [Ratio] 13.8 % Normal 10.9 - 14.2 % [facility] Hematocrit (Bld) [Volume fraction] 43.1 % Normal 37.7 - 49.0 % [facility] Hemoglobin (Bld) [Mass/Vol] 15.1 g/dL Normal 13.5 - 17.5 gm/dL [facility] Lymphocytes (Bld) [#/Vol] 3.0 E9/L Normal 1.0 - 4.0 E9/L [facility] Lymphocytes/100 WBC (Bld) 28.8 % Normal 14.0 - 50.0 % [facility] MCH (RBC) [Entitic mass] 30.4 pg Normal 27.0 - 34.0 pg Rem[facility]e MCHC (RBC) [Mass/Vol] 35.1 g/dL Normal 31.4 - 36.0 gm/dL [facility] MCV (RBC) [Entitic vol] 86.6 fL Normal 80.0 - 100.0 fL [facility] Monocytes (Bld) [#/Vol] 0.9 E9/L Normal 0.2 - 1.0 E9/L [facility] Monocytes/100 WBC (Bld) 8.9 % Normal 4.0 - 14.0 % [facility] Neutrophils (Bld) [#/Vol] 6.1 E9/L Normal 2.0 - 7.5 E9/L [facility] Neutrophils/100 WBC (Bld) 58.2 % Normal 36.0 - 75.0 % [facility] Platelet 270.0 E9/L Normal 150.0 - 500.0 E9/L [facility] Platelet mean volume (Bld) [Entitic vol] 7.9 fL Normal 6.4 - 10.8 fL [facility] RBC (Bld) [#/Vol] 5.0 E12/L Normal 4.3 - 5.9 E12/L [facility] WBC corrected for nucl RBC Auto (Bld) [#/Vol] 10.5 E9/L Normal 4.0 - 11.0 E9/L Rem[facility]e PT & PTTon 05-03-2024 aPTT Coag (PPP) [Time] 30.5 second(s) Normal 25.1-36.5 [facility] Comment on above: Result Comment: Para meter 15 days - 4 weeks 1 - 5 months 6 - 11 months 1 - 5 years 6 - 10 years 11 - 17 years PTT Mean: 35.4 (27.6-45.6) Mean: 33.5 (24.8-40.7) Mean: 32.4 (25.1-40.7) Mean: 31.6 (24.0-39.2) Mean: 31.6 (26.9-38.7) Mean: 31.0 (24.6-38.4) Pediatric Reference ranges were obtained from a study by aziza Karimi al. prepared from 1437 samples obtained at 7 different centers using the same coagulation reagent and instrumentation as [facility]. Currently there are no coagulation studies available worldwide for children to 14 days, and no normal ranges. Heparin therapeutic range (represented by Anti-Factor Xa activity of 0.2 - 0.4 U/mL) corresponds to PTT of 56.6 - 109.0 sec. Performed By: #### 1 [id number] #### [facility] [address] [place] [address] INR Coag (PPP) [Relative time] 1.04 {INR} Invalid Interpretation Code [facility] Comment on above: Result Comment: INR results are specifically intended to assess patients stabilized on long-term Anticoagulation therapy suggested INR???s ???Less Intensive Anticoagulation??? 2.0 ??? 3.0 Conventional Range 3.0 ??? 4.5 Performed By: #### 1 [id number] #### [facility] [address] [place] [address] PT Coag (PPP) [Time] 11.7 second(s) Normal 9.4-12.5 [facility] Comment on above: Result Comment: 15 d ays - 4 weeks 1 - 5 months 6 -11 months 1- 5 years 6-10 years 11 -17 years Mean: 11.2 (9.5-12.6) Mean: 11.0 (9.7-12.8) Mean: 11.0 (9.8-13.0) Mean: 11.3 (9.9-13.4) Mean: 11.7 (10.0-14.6) Mean: 11.8 (10.0 - 14.1) Pediatric Reference ranges were obtained from a study by aziza Karimi al. prepared from 1437 samples obtained at 7 different centers using the same coagulation reagent and instrumentation as [facility]. Currently there are no coagulation studies available worldwide for children to 14 days, and no normal ranges. Performed By: #### 1 [id number] #### [facility] [address] [place] [address] UA with Cult Rflxon 05-03-19 Bacteria Auto Ql (U) Trace Normal Trace Fish er [facility] Comment on above: Performed By: #### 4 [id number] #### [facility] [address] [place] [address] Bilirubin Ql (U) Negative Normal Negative [facility] Comment on above: Performed By: #### 4 [id number] #### [facility] [address] [place] [address] Clarity (U) Turbid Abnormal Clear [facility] Comment on above: Performed By: #### 4 [id number] #### [facility] [address] [place] [address] Color (U) Light-Yellow Normal Yellow [facility] Comment on above: Result Comment: Micr oscopic readings are only performed on those samples that meet specific criteria set forth by [facility]. Performed By: #### 4 [id number] #### [facility] [address] [place] [address] Epithelial cells.squamous Auto (Urine sed) [#/Area] 3-4 Invalid Interpretation Code [facility] Comment on above: Performed By: #### 4 [id number] #### [facility] [address] [place] [address] Glucose Ql (U) Negative Normal Negative [facility] Comment on above: Performed By: #### 4 [id number] #### [facility] [address] [place] [address] Hemoglobin Auto test strip (U) [Mass/Vol] Trace Abnormal Negative [facility] Comment on above: Performed By: #### 4 [id number] #### [facility] [address] [place] [address] Ketones Auto test strip Ql (U) Negative Normal Negative [facility] Comment on above: Performed By: #### 4 [id number] #### [facility] [address] [place] [address] Leukocyte esterase Auto test strip Ql (U) 500 Aguila/uL Abnormal Negative [facility] Comment on above: Performed By: #### 4 [id number] #### [facility] [address] [place] [address] Mucus Auto Ql (U) Negative Normal Negative [facility] Comment on above: Performed By: #### 4 [id number] #### [facility] [address] [place] [address] Nitrite Auto test strip Ql (U) Negative Normal Negative [facility] Comment on above: Performed By: #### 4 [id number] #### [facility] [address] [place] [address] pH (U) 5.5 [pH] Invalid Interpretation Code 5.0-9.0 [facility] Comment on above: Performed By: #### 4 [id number] #### [facility] [address] [place] [address] Protein Ql (U) Negative Normal Negative [facility] Comment on above: Performed By: #### 4 [id number] #### [facility] [address] [place] [address] RBC Ql (U) 4-20 Abnormal 0-3 [facility] Comment on above: Performed By: #### 4 [id number] #### [facility] [address] [place] [address] Specific gravity (U) [Rel density] 1.011 Invalid Interpretation Code 1.005-1.030 [facility] Comment on above: Performed By: #### 4 [id number] #### [facility] [address] [place] [address] Urobilinogen (U) [Mass/Vol] Negative Normal Negative [facility] Comment on above: Performed By: #### 4 [id number] #### [facility] [address] [place] [address] WBC Auto (Urine sed) [#/Area] 31-75 Abnormal 0-5 [facility] Comment on above: Performed By: #### 4 [id number] #### [facility] [address] [place] [address] Type of Urine collection method Clean Catch Normal [facility] Comment on above: Performed By: #### 4 [id number] #### [facility] [address] [place] [address] URINALYSISOrdered By: SYSTEM SYSTEM on 05-03-2024 Bacteria Auto Ql (U) Trace /HPF Normal Trace/HPF [facility] UA Auto SS Bilirubin Ql (U) Negative Normal Negativemg/dL [facility] UA Auto SS Clarity (U) Turbid *ABN* (05/03/24 8:45 AM) Invalid Interpretation Code Clear [facility] UA Auto SS Color (U) Light-Yellow 1 (05/03/24 8:45 AM) Normal Yellow [facility] UA Auto SS Comment on above: Interpretive Data: M icroscopic readings are only performed on those samples that meet specific criteria set forth by [facility]. Epithelial cells.squamous Auto (Urine sed) [#/Area] 3-4 graded/HPF Invalid Interpretation Code [facility] UA Auto SS Glucose Ql (U) Negative Normal Negativemg/dL [facility] UA Auto SS Hemoglobin Auto test strip (U) [Mass/Vol] Trace mg/dL Invalid Interpretation Code Negativemg/dL [facility] UA Auto SS Ketones Auto test strip Ql (U) Negative Normal Negativemg/dL [facility] UA Auto SS Leukocyte esterase Auto test strip Ql (U) 500 Aguila/uL Aguila/uL Invalid Interpretation Code NegativeLeu/u L [facility] UA Auto SS Mucus Auto Ql (U) Negative Normal Negativegr janell d/LPF [facility] UA Auto SS Nitrite Auto test strip Ql (U) Negative Normal Negativemg/dL [facility] UA Auto SS pH (U) 5.5 *NA* (05/03/24 8:45 AM) Invalid Interpretation Code 5.0 - 9.0 [facility] UA Auto SS Protein Ql (U) Negative Normal Negativemg/dL [facility] UA Auto SS RBC Ql (U) 4-20 graded/HPF Invalid Interpretation Code 0-3graded/HPF [facility] UA Auto SS Specific gravity (U) [Rel density] 1.011 *NA* (05/03/24 8:45 AM) Invalid Interpretation Code 1.005 - 1.030 [facility] UA Auto SS Urobilinogen (U) [Mass/Vol] Negative Normal Negativemg/dL [facility] UA Auto SS WBC Auto (Urine sed) [#/Area] 31-75 graded/HPF Invalid Interpretation Code 0-5graded/HPF [facility] UA Auto SS URINALYSISOrdered By: Nic Acevedo on 05-03-2024 UA Spec Desc Clean Catch (05/03/24 8:45 AM) Normal [facility] UA Auto SS XR Chest 2 Viewson XR Chest 2 Views Exam Date/Time: 05/03/2024 09:15 EST Reason for Exam: P.A.T. Report IMPRESSION: NO RADIOGRAPHIC EVIDENCE OF ACUTE INTRATHORACIC PROCESS. EXAMINATION: XR Chest 2 Views HISTORY: Preoperative evaluation TECHNIQUE: Frontal and lateral views of the chest. COMPARISON: None available FINDINGS: Cardiomediastinal silhouette is within normal limits. No pneumothorax, pleural effusion, or consolidation. Calcified lung granulomas are noted. No acute osseous abnormality. Ordering Provider: Channing Galvan FINAL REPORT Dictated: 05/03/2024 4:08 pm Mynor Walton DO Signed (Electronic Signature): 05/03/2024 4:08 pm Signed by: Mynor Walton DO Transcribed by: GAYLE Technologist: VIC Technical Comments Radiation Dose: Ka,r in mGy = na DAP = na Normal [facility] eGFRon 05-03-2024 eGFR 33 mL/min/1.73 m2 Low >=59 [facility] Comment on above: Performed By: #### 1 [id number] #### [facility] [address] [place] [address] NM Kidney Imaging w/ Flow w/ Pharmon 05-02-2024 NM Kidney Imaging w/ Flow w/ Pharm Exam Date/Time: 05/01/2024 13:58 EST Reason for Exam: Right renal atrophy;Other (please specify) Report IMPRESSION: RIGHT RENAL ATROPHY. DILATED NONOBSTRUCTED RIGHT UPPER URINARY TRACT. NORMAL LEFT KIDNEY AND UPPER URINARY TRACT. EXAM: NM Kidney Imaging w/ Flow w/ Pharm DATE: 05/01/2024 8:25 AM CLINICAL HISTORY: Right renal atrophy. COMPARISON: CT abdomen and pelvis 05/01/2024. TECHNIQUE: Sequential posterior planar images were obtained of the abdomen and pelvis after the intravenous administration of approximately 8.6 mCi of technetium 99m MAG3. 40 mg of IV furosemide was administered approximately 20 minutes into the study. Time activity curves and split renal function analysis was performed in the usual fashion. FINDINGS: Split renal function calculated at 80.8% on the left and 19.2% on the right. There is delayed peak and half emptying times of the right kidney with a positive response to diuretic, consistent with a combination of renal atrophy and a dilated nonobstructed upper urinary tract. Peak and half-emptying times of the right kidney are within normal limits, with positive diuretic response. Ordering Provider: Sun Quach FINAL REPORT Dictated: 05/02/2024 4:47 pm Alfred Correa MD Signed (Electronic Signature): 05/02/2024 4:47 pm Signed by: Alfred Correa MD Transcribed by: GAYLE Technologist: ROHIT Technical Comments Dose: (mCi Tc99m Mag3) 8.6 Dose Furosemide (mg): 40 Right Peak (min): 20 Right T1/2 (min): 32.4 Technical Comments Right Uptake (%): 19.2 Left Peak (min): 4 Left T1/2 (min): 19.3 Left Uptake (%): 80.[address] [facility] [address] Abdomen/Pelvis w/o Contra ston 05-01-2024 CT Abdomen/Pelvis w/o Contrast Exam Date/Time: 05/01/2024 10:00 EST Reason for Exam: Kidney stones;Other (please specify) Report IMPRESSION: NONOBSTRUCTING APPROXIMATELY 1.5 CM CALCULUS WITHIN THE RIGHT RENAL PELVIS. MODERATE RIGHT RENAL ATROPHY. APPROXIMATELY 1.2 CM POSSIBLE HYPERDENSE CYST OR SOLID PARTIALLY EXOPHYTIC LEFT UPPER POLE RENAL NODULE. A FOLLOW-UP ULTRASOUND IN 6 MONTHS IS SUGGESTED; UNLESS OUTSIDE IMAGING CAN BE MADE AVAILABLE FOR DIRECT COMPARISON. CHRONIC FINDINGS, NOTED. CLINICAL HISTORY: Kidney stones. COMPARISON: None available. TECHNIQUE: Spiral unenhanced images were obtained from above the kidneys through the urinary bladder without contrast. All CT scans at this facility use dose modulation, iterative reconstruction, and/or weight based dosing when appropriate to reduce radiation dose to as low as reasonably achievable. Unless otherwise stated, incidental findings identified in this report do not require routine follow-up imaging. FINDINGS: Liver: No enlargement, significant fatty infiltration, suspicious mass or lesion of the visualized segments. Biliary: The gallbladder has been removed. No abnormal biliary ductal dilatation. Pancreas: No mass, organized fluid collection, or abnormal pancreatic ductal dilatation. Spleen: Unremarkable. Adrenals: Unremarkable. Kidneys: Moderate to marked right renal atrophy with an approximately 1.5 x 1 cm calculus within the mildly dilated right renal pelvis (average Hounsfield units of approximately 700). No significant caliectasis, hydroureter, or other significant urinary tract calculi. Approximately 1.2 cm partially exophytic isodense nodule arising from the posterior aspect of the upper pole of an otherwise unremarkable-appearin g unenhanced left kidney. GI tract: No abnormal dilation or wall thickening. Mild sigmoid diverticulosis. Normal appendix. Lymph nodes: No pathologically enlarged lymph nodes. A few mildly prominent iliac lymph nodes, probably reactive. The largest measures approximately 7 mm in short axis (image 111 - axial series 2). Vasculature: No aneurysm. Minimal calcified atherosclerotic plaquing. Report Mesentery/peritoneum/ retroperitoneum: No ascites, organized fluid collection, inflammatory changes, or suspicious mass. Pelvis: The minimally distended urinary bladder is otherwise unremarkable. The prostate is normal in size measuring approximately 2.6 x 4.0 x 4.0 cm in aggregate dimension 22 mL. Bones/soft tissue: No acute osseous findings identified. Mild to moderate degenerative changes, predominantly at L1-2 with moderate to marked central spinal stenosis and neural foraminal narrowing. Mild ill-defined density just deep to the skin surface in the right lower quadrant subcutaneous fat, possibly related to subdermal injections. No organized fluid collection. Lower thorax: Noncontributory. Ordering Provider: Sun Quach FINAL REPORT Dictated: 05/01/2024 10:25 am Alfred Correa MD Signed (Electronic Signature): 05/01/2024 10:25 am Signed by: Alfred Correa MD Transcribed by: GAYLE Technologist: YOSI Technical Comments Rectal Contrast Given? No Oral contrast amount in ml's: 0 Normal [facility] Ambulatory Visit Summaryon 0 04-18-2024 Ambulatory Visit Summary Ambulatory Visit Summary STEVEN WALDEN :1960 Visit Date:04/18/2024 Ambulatory Visit Instructions Your Diagnosis Kidney stone Renal atrophy CKD (chronic kidney disease) BPH with urinary obstruction Phimosis Your Care Team Attending Physician - Sun Quach MD M. Primary Care Physician - DARION RANDLE MD Referring Physician - FUENTES ROMERO, FANI This Is Your Medications List tadalafil (Cialis 5 mg oral tablet) triamcinolone topical (triamcinolone Top 0.1% Crm 15 gram) Contact prescribing physician if questions or concerns Misc Prescription (#####) allopurinol (allopurinol 100 mg Tab) atorvastatin (atorvastatin 20 mg Tab) ferrous sulfate (ferrous sulfate 325 mg Tab) furosemide (furosemide 40 mg Tab) insulin regular (HumuLIN R KwikPen (Concentrated) human recombinant 500 units/mL subcutaneous solution) magnesium oxide magnesium oxide (magnesium oxide 400 mg Tab) midodrine (midodrine 2.5 mg oral tablet) omeprazole (omeprazole 40 mg Cap-DR) potassium chloride (potassium chloride 20 mEq ER Tab) quetiapine (quetiapine 200 mg Tab) quetiapine (quetiapine 25 mg Tab) sertraline (sertraline 100 mg Tab) sodium bicarbonate (sodium bicarbonate 650 mg Tab) thiamine valbenazine (Ingrezza 60 mg oral capsule) Discharge Vitals Temperature (Oral) 37 ???C Heart Rate (Peripheral) 72 Blood Pressure 112/82 Height 184 cm Height 72 in Weight 160 kg Weight 352.739 lb BMI 47.26 What to do next Scheduled Follow-Up Appointments Tuesday 9:00 AM EST Where: [facility] Tuesday 10:00 AM EST Where: [facility] 2024 8:30 AM EST Where: [facility] Tuesday 8:00 AM EST Where: [facility] You Need to Schedule the Following Appointments Follow Up with Main ROMERO, Sun Bright, URL, URO When: Where: You Need to Complete the Following CT Abdomen/Pelvis w/o Contrast, 05/01/24, Routine, Order for future visit, Transport Mode: Ambulatory, Reason: Other (please specify), Reason: Kidney stones, No, No, Kidney stone, Stone protocol, pp_set_radiology_subs pecialty, Not Required, [facility] w/ Flow w/ Pharm, 05/01/24, Routine, Order for Future Visit, Transport Mode: Ambulatory, Reason: Other (please specify), Reason: Right renal atrophy, Renal atrophy, No, pp_set_radiology_subs pecialty, Not Required, Gonzalez - Joshua Medications What How Much When Why Instructions New tadalafil (Cialis 5 mg oral tablet) 1 Tablets By Mouth Every day BPH with urinary obstruction Refills: 3 Pickup at [facility]/pharmacy #[id number] New triamcinolone topical (triamcinolone Top 0.1% Crm 15 gram) 1 Application Topical 2 times a day Phimosis Duration: 2 Weeks Refills: 1 apply a thin film to penile head skin twice a day for 2 weeks Pickup at [facility]/pharmacy #[id number] Unchanged allopurinol (allopurinol 100 mg Tab) 14 EA, 0 Refill(s), TAKE 1 TABLET BY MOUTH EVERY DAY IN THE MORNING Contact prescribing physician if questions or concerns Unchanged atorvastatin (atorvastatin 20 mg Tab) 90 EA, 0 Refill(s), TAKE 1 TABLET BY MOUTH AT BEDTIME Contact prescribing physician if questions or concerns Unchanged ferrous sulfate (ferrous sulfate 325 mg Tab) 180 EA, 0 Refill(s), TAKE 1 TABLET BY MOUTH TWICE A DAY Contact prescribing physician if questions or concerns Unchanged furosemide (furosemide 40 mg Tab) 90 EA, 0 Refill(s), TAKE 1 TABLET BY MOUTH DAILY Contact prescribing physician if questions or concerns Unchanged insulin regular (HumuLIN R KwikPen (Concentrated) human recombinant 500 units/ mL subcutaneous solution) 30 mL, 0 Refill(s), INJECT 30 - 40 - 50 UNITS SUBCUTANEOUSLY TWICE A DAY DIRECTED (EXPECT DOSE OF 150 UNITS DAILY) Contact prescribing physician if questions or concerns Unchanged magnesium oxide Oral, 0 Refill(s) Contact prescribing physician if questions or concerns Unchanged magnesium oxide (magnesium oxide 400 mg Tab) 90 EA, 0 Refill(s), TAKE 1 TABLET BY MOUTH EVERY DAY Contact prescribing physician if questions or concerns Unchanged midodrine (midodrine 2.5 mg oral tablet) 90 EA, 0 Refill(s), TAKE 1 TABLET BY MOUTH 3 TIMES DAILY WITH MEALS Contact prescribing physician if questions or concerns Unchanged Misc Prescription (#####) 0 200 EA, 0 Refill(s), USE DIRECTED UNDER THE SKIN TWICE DAILY Contact prescribing physician if questions or concerns Unchanged omeprazole (omeprazole 40 mg Cap-DR) 14 EA, 0 Refill(s), TAKE 1 CAPSULE BY MOUTH IN THE MORNING BEFORE MEAL *MUST MAKE APPOINTMENT* Contact prescribing physician if questions or concerns Unchanged potassium chloride (potassium chloride 20 mEq ER Tab) Oral, 0 Refill(s) Contact prescribing physician if questions or concerns Unchanged quetiapine (quetiapine 200 mg Tab) 1 Tablets Contact prescribing physician if questions or concerns Unchanged quetiapine (quetiapine 25 mg Tab) 60 EA, 0 Refill(s), TAKE 1 T (more content not included)... Normal [facility] CBC WITH PLATELET NO DI FFERENTIALon 02-29-2024 Erythrocyte distribution width (RBC) [Ratio] 12.5 % 11.0 - 15.0 % [facility] Hematocrit (Bld) [Volume fraction] 41.6 % Low 42.0 - 54.0 % [facility] Hemoglobin (Bld) [Mass/Vol] 14.4 g/dL 14.0 - 18.0 g/dL [facility] Interpretation and review of laboratory results Abnormal [facility] MCH (RBC) [Entitic mass] 29.8 pg 25.9 - 34.0 pg [facility] MCHC (RBC) [Mass/Vol] 34.6 g/dL 29.9 - 35.2 g/dL [facility] MCV (RBC) [Entitic vol] 86 fL 80.0 - 94.0 fL [facility] Platelet mean volume (Bld) [Entitic vol] 10.3 fL 9.5 - 13.5 fL [facility] TB PLT 220 [facility] RBC 4.84 [facility] WBC 9.4 [facility] Office Visiton 02-29-2024 Follow-up visit [id number] Steven Walden 1960 M Date Provider Department Center 02/29/2024 MEKA GIBSON WENDY Pfeiffer Family History Family history unknown: Yes Level of Service:56426 [place] OFFICE/OUTPATIENT ESTABLISHED MOD MDM 30 MIN Normal [facility] Glucose (Bld) [Mass/Vol]on 0 01-05-2024 Glucose Blood, POC 176 mg/dL [facility] - Hematology and Cell countson 01-05-2024 HbA1c (Bld) [Mass fraction] 8.2 % [facility] No Panel Informationon 01-04 Interpretation and review of laboratory results Abnormal [facility] 36on 09-07-2023 36 His labs looked good . 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 Liver function looks good. Cholesterol levels look good as well. If he is doing okay, recommend continuing current cardiac meds. Thanks Normal [facility] Erythrocyte distribution wid th Auto (RBC) [Ratio]on 09-02-2023 Erythrocyte distribution width (RBC) [Ratio] 12.3 % 11.0-15.0 [facility] Estimated glomerular filtrat ion rate (GFR) non- Americanon 09-02-2023 GFR/1.73 sq M.predicted among non-blacks MDRD (S/P/Bld) [Vol rate/Area] 33 mL/min/{1.73_m2} >=60 [facility] Globulin Calc (S) [Mass/Vol] on 09-02-2023 Globulin (S) [Mass/Vol] 4.2 g/dL [facility] Hematocrit Auto (Bld) [Volum e fraction]on 09-02-2023 Hematocrit (Bld) [Volume fraction] 39.3 % 42.0-54.0 [facility] Hemoglobin [Mass/volume] in Bloodon 09-02-2023 Hemoglobin (Bld) [Mass/Vol] 13.3 g/dL 14.0-18.0 [facility] Iron binding capacity [Mass/ volume] in Serum or Plasmaon 09-02-2023 Iron binding capacity [Mass/Vol] 395.0 ug/dL 250.0-450.0 [facility] Iron saturation [Mass Fracti on] in Serum or Plasmaon 09-02-2023 Iron saturation [Mass fraction] 17.0 % [facility] - Chemistry and C hemistry - challengeon 09-02-2023 Albumin [Mass/Vol] 3.6 g/dL 3.4-5.0 [facility] ALP [Catalytic activity/Vol] 132 U/L 46-116 [facility] ALT [Catalytic activity/Vol] 46 U/L 16-63 [facility] AST [Catalytic activity/Vol] 29 U/L 15-37 [facility] Bilirubin [Mass/Vol] 0.3 mg/dL 0.2-1.0 [facility] Calcium [Mass/Vol] 9.0 mg/dL 8.5-10.1 [facility] Chloride [Moles/Vol] 104 mmol/L 98-107 [facility] CO2 [Moles/Vol] 18.8 mmol/L 21.0-32.0 [facility] Creatinine [Mass/Vol] 2.04 mg/dL 0.70-1.30 [facility] Ferritin [Mass/Vol] 65.0 ng/mL 26.0-388.0 [facility] GFR/1.73 sq M.predicted MDRD (S/P/Bld) [Vol rate/Area] 40 mL/min/{1.73_m2} >=60 [facility] Glucose [Mass/Vol] 165 mg/dL 74-106 [facility] Iron [Mass/Vol] 67.0 ug/dL 65.0-175.0 [facility] Magnesium [Mass/Vol] 2.2 mg/dL 1.8-2.4 [facility] Potassium [Moles/Vol] 3.8 mmol/L 3.5-5.1 [facility] Protein [Mass/Vol] 7.8 g/dL 6.4-8.2 [facility] Sodium [Moles/Vol] 139 mmol/L 136-145 [facility] Urate [Mass/Vol] 6.9 mg/dL 3.5-7.2 [facility] Urea nitrogen [Mass/Vol] 60.0 mg/dL 7.0-18.0 [facility] Urea nitrogen/Creatinine [Mass ratio] 29.4 mg/mg [facility] Bilirubin Ql (U) Negative NEGATIVE [facility] Glucose (U) [Mass/Vol] Negative NEGATIVE [facility] Ketones Ql (U) Negative NEGATIVE [facility] pH (U) 6.0 [pH] 5.0-9.0 [facility] Specific gravity (U) [Rel density] 1.015 1.005-1.025 [facility] Urobilinogen Qn (U) 0.2 {Naresh'U}/dL 0.2-1.0 [facility] - Specimen inform ationon 09-02-2023 Appearance (U) CLEAR CLEAR [facility] Color (U) LT. YELLOW YELLOW [facility] - Urinalysison Leukocyte esterase Test strip Ql (U) MODERATE NEGATIVE [facility] Nitrite Ql (U) Negative NEGATIVE [facility] Protein (U) [Mass/Vol] 30.6 mg/dL <=11.9 [facility] Protein Ql (U) Negative NEG/TRACE [facility] Leukocytes [#/volume] correc heather for nucleated erythrocytes in Blood by Automated counon 09-02-2023 WBC corrected for nucl RBC Auto (Bld) [#/Vol] 8.4 10 3/uL 4.0-11.0 [facility] MCH Auto (RBC) [Entitic mass ]on 09-02-2023 MCH (RBC) [Entitic mass] 30.0 pg 25.9-34.0 [facility] MCHC Auto (RBC) [Mass/Vol]on 09-02-2023 MCHC (RBC) [Mass/Vol] 33.8 g/dL 29.9-35.2 [facility] MCV Auto (RBC) [Entitic vol] on 09-02-2023 MCV (RBC) [Entitic vol] 88.7 fL 80.0-94.0 [facility] [facility] No Panel Informationon 09-01 25-Hydroxy Vitamin D Total 20.4 ng/mL [facility] Comment on above: <20 ng/mL Vit D defi cient20-<30 ng/mL Vit D xddieeopidsy02-921 ng/mL Vit D sufficient>100 ng/mL Potential Toxicity Folate 24.20 ng/mL 8.60-58.90 [facility] Parathyroid Hormone (Intact) 143 pg/mL 15-65 [facility] Comment on above: Performed at: - [address] [id number] Director: James Marina PhD, Phone: [phone] Phosphorus Level 4.1 mg/dL 2.6-4.7 [facility] Urine Occult Blood SMALL NEGATIVE [facility] Urine Random Creatinine 81.86 mg/dL 20.00-300.00 [facility] Orders Onlyon 09-02-2023 Orders Only [id number] Steven Walden 1960 [facility] Provider Department Center 09/02/2023 [id number], HISTORICAL [facility] Family History Family history unknown: Yes Normal [facility] Platelet mean volume Auto (B ld) [Entitic vol]on 09-02-2023 Platelet mean volume (Bld) [Entitic vol] 10.1 fL 9.5-13.5 [facility] Platelets Auto (Bld) [#/Vol] on 09-02-2023 Platelets (Bld) [#/Vol] 217 10 3/uL 150-450 [facility] RBC Auto (Bld) [#/Vol]on RBC (Bld) [#/Vol] 4.43 10 6/uL 4.70-6.10 [facility] Serum or plasma albumin/glob ulin mass ratioon 09-02-2023 Albumin/Globulin [Mass ratio] 0.9 {ratio} [facility] Serum or plasma anion gap de terminationon 09-02-2023 Anion gap [Moles/Vol] 20.0 mmol/L [facility] Urine protein/creatinine rat ioon 09-02-2023 Protein/Creatinine (U) [Ratio] 0.37 [facility] Orders Onlyon 07-27-2023 Orders Only [id number] Steven Walden 1960 [facility] 07/27/2023 3204-ZUNILDA VILLATORO WENDY Pfeiffer Family History Family history unknown: Yes Normal [facility] 36on 07-21-2023 36 I added a CK to his follow-up labs with LFTs/lipids in 6 weeks. Please make sure [facility] has this as well. Thanks! Normal [facility] Telephoneon 07-21-2023 Telephone [id number] Steven Walden 1960 [facility] Provider Department Center 07/21/2023 [place] Family History Family history unknown: Yes Normal [facility] Office Visiton 07-19-2023 Follow-up visit [id number] Steven Walden 1960 M Date Provider Department Center 07/19/2023 SONDRA DAN Anisa [facility] Family History Family history unknown: Yes Level of Service:64158 [place] OFFICE/OUTPATIENT ESTABLISHED MOD MDM 30 MIN Normal [facility] Glucose,Whole Bloodon 2023 Glucose [Mass/Vol] 137 mg/dL High 75-110 [facility] Glucose,Whole Bloodon 2023 Glucose [Mass/Vol] 274 mg/dL High 75-110 [facility] Glucose [Mass/Vol] 229 mg/dL High 75-110 [facility] Glucose [Mass/Vol] 188 mg/dL High 75-110 [facility] Glucose [Mass/Vol] 163 mg/dL High 75-110 [facility] Glucose,Whole Bloodon 2023 Glucose [Mass/Vol] 275 mg/dL High 75-110 [facility] Glucose [Mass/Vol] 162 mg/dL High 75-110 [facility] Glucose [Mass/Vol] 250 mg/dL High 75-110 [facility] Glucose [Mass/Vol] 150 mg/dL High 75-110 [facility] Glucose,Whole Bloodon 2023 Glucose [Mass/Vol] 213 mg/dL High 75-110 [facility] Glucose [Mass/Vol] 142 mg/dL High 75-110 [facility] Glucose [Mass/Vol] 126 mg/dL High 75-110 [facility] Glucose [Mass/Vol] 141 mg/dL High 75-110 [facility] Glucose,Whole Bloodon 2023 Glucose [Mass/Vol] 274 mg/dL High 75-110 [facility] Glucose [Mass/Vol] 229 mg/dL High 75-110 [facility] Glucose [Mass/Vol] 154 mg/dL High 75-110 [facility] Glucose [Mass/Vol] 161 mg/dL High 75-110 [facility] Cult,Urineon 05-20-2023 Cult,Urine Specimen Description .CLEAN CATCH URINE Culture NO SIGNIFICANT GROWTH Report Status FINAL 05/20/2023 Normal [facility] Comment on above: Performed By: #### B MP, CBC #### [facility] [address] [place] [address] Yard Switch Operator: You Bro DO Glucose,Whole Bloodon 2023 Glucose [Mass/Vol] 336 mg/dL High 75-110 [facility] Glucose [Mass/Vol] 193 mg/dL High 75-110 [facility] Glucose [Mass/Vol] 200 mg/dL High 75-110 [facility] Glucose [Mass/Vol] 150 mg/dL High 75-110 [facility] MHPT CULT,URINEon 05-20-2023 MHPT CULT,URINE Specimen Description .CLEAN CATCH URINE [facility] MHPT CULT,URINE Culture NO SIGNIFICANT GROWTH [facility] MHPT CULT,URINE Report Status FINAL 05/20/2023 [facility] Healthcare Original Ordering Provider: NATALIYA DUNN [facility] B12/Folate Panelon Cobalamin (Vitamin B12) [Mass/Vol] 426 pg/mL Normal 232-1245 [facility] Comment on above: Performed By: #### B 12FOL #### [facility] [address] [place] [address] Yard Switch Operator: Rodrick Jones MD Folic Acid 15.3 ng/mL Normal >4.8 [facility] Comment on above: Performed By: #### B 12FOL #### [facility] [address] [place] [address] Yard Switch Operator: Rodrick Jones MD Comp Metabolic Profon 2023 Albumin [Mass/Vol] 4.3 g/dL Normal 3.5-5.2 [facility] Comment on above: Performed By: #### L IPR, TSHX, CP ####[facility] Tph[address]52 [facility] [place] [address] Lab Director: You Bro DO Alkaline Phos 165 U/L High 40-129 [facility] Comment on above: Performed By: #### L GINO, TSHX, CP ####[facility] [address] [facility] [place] [address] Lab Director: You Bro DO ALT [Catalytic activity/Vol] 13 U/L Normal 5-41 [facility] Comment on above: Performed By: #### L GINO, TSHX, CP ####[facility] Tni[address]32 [facility] [place] [address] lab Director: You Bro DO Anion gap [Moles/Vol] 13 mmol/L Normal 9-17 [facility] Comment on above: Performed By: #### L GINO, TSHX, CP ####[facility] Lpm6482 [facility] [place] [address] Lab Director: You Bro DO AST [Catalytic activity/Vol] 17 U/L Normal <40 [facility] Comment on above: Performed By: #### L GINO, TSHX, CP ####[facility] Uro[address] [facility] [place] [address] Lab Director: You Bro DO Bilirubin [Mass/Vol] 0.3 mg/dL Normal 0.3-1.2 [facility] Comment on above: Performed By: #### L GINO, TSHX, CP ####[facility] Bqz24[address] [facility] [place] [address] Lab Director: You Bro DO Calcium [Mass/Vol] 10.0 mg/dL Normal 8.6-10.4 [facility] Comment on above: Performed By: #### L IPR, TSHX, CP ####[facility] Neq49[address] [facility] [place] [address] Lab Director: Fanelly, You, DO Chloride [Moles/Vol] 103 mmol/L Normal 98-107 [facility] Comment on above: Performed By: #### L IPR, TSHX, CP ####[facility] Cmw5967 [facility] [place] [address] Lab Director: You Bro DO CO2 [Moles/Vol] 22 mmol/L Normal 20-31 [facility] Comment on above: Performed By: #### L IPR, TSHX, CP ####[facility] Gzz4416 [facility] [place] [address] Lab Director: You Bro DO Creatinine [Mass/Vol] 2.3 mg/dL High 0.7-1.2 [facility] Comment on above: Performed By: #### L IPR, TSHX, CP ####[address] [place] [address] Lab Director: You Bro DO GFR/1.73 sq M.predicted among non-blacks MDRD (S/P/Bld) [Vol rate/Area] 32 mL/min/{1.73_m2} Low >60 [facility] Comment on above: Result Comment: These [...] Performed By: #### L IPR, TSHX, CP ####[facility] Hjr[address] [facility] [place] [address] Lab Director: You Bro DO Glucose [Mass/Vol] 207 mg/dL High 70-99 [facility] Comment on above: Performed By: #### L IPR, TSHX, CP ####[facility] Hia2892 [facility] [place] [address] Lab Director: You Bro DO Potassium [Moles/Vol] 4.2 mmol/L Normal 3.7-5.3 [facility] Comment on above: Performed By: #### L IPR, TSHX, CP ####[facility] Dmh0827 [facility] [place] [address] Lab Director: You Bro DO Protein [Mass/Vol] 8.7 g/dL High 6.4-8.3 [facility] Comment on above: Performed By: #### L IPR, TSHX, CP ####[facility] Rdg7167 [facility] [place] [address] lab Director: You Bro DO Sodium [Moles/Vol] 138 mmol/L Normal 135-144 [facility] Comment on above: Performed By: #### L IPR, TSHX, CP ####[facility] Alc8182 [facility] [place] [address] Lab Director: You Bro DO Urea nitrogen [Mass/Vol] 48 mg/dL High 8-23 [facility] Comment on above: Performed By: #### L IPR, TSHX, CP ####[facility] Wed5767 [facility] [place] [address] Lab Director: You Bro DO Glucose,Whole Bloodon 2023 Glucose [Mass/Vol] 280 mg/dL High 75-110 [facility] Glucose [Mass/Vol] 219 mg/dL High 75-110 [facility] Glucose [Mass/Vol] 178 mg/dL High 75-110 [facility] Glucose [Mass/Vol] 148 mg/dL High 75-110 [facility] Hemoglobin A1Con 05-19-2023 Glucose [Mass/Vol] 160 mg/dL Normal [facility] Comment on above: Result Comment: The ADA and AACC recommend providing the estimated average glucose result to permit better patient understanding of their HBA1c result. Performed By: #### G LYHGB #### [facility] [address] [place] [address] Yard Switch Operator: Rodrick Jones MD HbA1c (Bld) [Mass fraction] 7.2 % High 4.0-6.0 [facility] Comment on above: Performed By: #### G LYHGB #### [facility] [address] [place] [address] Yard Switch Operator: Rodrick Jones MD Lipid Profileon 05-19-2023 Cholesterol [Mass/Vol] 189 mg/dL Normal <200 [facility] Comment on above: Result Comment: Cholesterol Guidelines: <200 Desirable 200-240 Borderline >240 Undesirable Performed By: #### L IPR, TSHX, CP ####[facility] [address] [place] [address] [facility] Director: You Bro DO Cholesterol in HDL [Mass/Vol] 31 mg/dL Low >40 [facility] Comment on above: Result Comment: HDL Guidelines: <40 Undesirable 40-59 Borderline >59 Desirable Performed By: #### L IPR, TSHX, CP ####[facility] Pjk[address] [place] [address] Lab Director: You Bro DO Cholesterol in LDL [Mass/Vol] 117 mg/dL Normal 0-130 [facility] Comment on above: Result Comment: LDL Guidelines: <100 Desirable 100-129 Near to/above Desirable 130-159 Borderline >159 Undesirable Direct (measured) LDL and calculated LDL are not interchangeable tests. Performed By: #### L IPR, TSHX, CP ####[facility] Uvj[address] [place] [address] Lab Director: You Bro DO Cholesterol.total/Chol esterol in HDL [Mass ratio] 6.1 {ratio} High <5 [facility] Comment on above: Performed By: #### L IPR, TSHX, CP ####[facility] Qia0226 [facility] [place] [address] Lab Director: You Bro DO Triglyceride [Mass/Vol] 204 mg/dL High <150 [facility] Comment on above: Result Comment: Triglyceride Guidelines: <150 Desirable 150-199 Borderline 200-499 High >499 Very high Based on AHA Guidelines for fasting triglyceride, January 2012. Performed By: #### L IPR, TSHX, CP ####[facility] [address] [place] [address] Lab Director: You Bro DO TSH w/reflex to FT4on 2023 Thyroid Stim. Horm. 2.38 uIU/mL Normal 0.30-5.00 [facility] Comment on above: Performed By: #### L IPR, TSHX, CP ####[facility] Duz[address] [place] [address] Lab Director: You Bro DO Glucose,Whole Bloodon 3 Glucose [Mass/Vol] 270 mg/dL High 75-110 [facility] Glucose [Mass/Vol] 192 mg/dL High 75-110 [facility] UA w/Reflex Cultureon 2023 Bilirubin, SemiQt,Ur Negative Normal NEG [facility] Comment on above: Performed By: #### B MP, CBC #### [facility] [address] [facility] [place] [address] Yard Switch Operator: You Bro DO Blood, Urine Negative Normal NEG [facility] Comment on above: Performed By: #### B MP, CBC #### [facility] [address] [place] [address] Yard Switch Operator: You Bro DO Clarity (U) Clear Normal CLEAR [facility] Comment on above: Performed By: #### B MP, CBC #### [facility] [address] [place] [address] [place] [address] Yard Switch Operator: You Bro DO Color (U) Yellow Normal YEL [facility] Comment on above: Performed By: #### B MP, CBC #### [facility] [address] [place] [address] Yard Switch Operator: You Bro DO Glucose Ql (U) Negative Normal NEG [facility] Comment on above: Performed By: #### B MP, CBC #### [facility] [address] [place] [address] Yard Switch Operator: You Bro DO Ketones Ql (U) Negative Normal NEG [facility] Comment on above: Performed By: #### B MP, CBC #### [facility] [address] [place] [address] Yard Switch Operator: You Bro DO Leukocyte esterase Test strip Ql (U) SMALL Abnormal NEG [facility] Comment on above: Performed By: #### B MP, CBC #### [facility] [address] [place] [address]. [place] [address] Yard Switch Operator: You Bro DO Nitrite,Ur Negative Normal NEG [facility] Comment on above: Performed By: #### B MP, CBC #### [facility] [address] [place] [address]. [place] [address] Yard Switch Operator: You Bro DO PH,Ur 5.0 Normal 5.0-8.0 [facility] Comment on above: Performed By: #### B MP, CBC #### [facility] [address] [place] [address] Yard Switch Operator: You Bro DO Protein Ql (U) Negative Normal NEG [facility] Comment on above: Performed By: #### B MP, CBC #### [facility] [address] [place] [address] Yard Switch Operator: You Bro DO Spec. [place],Ur 1.011 Normal 1.000-1.030 [facility] Comment on above: Performed By: #### B MP, CBC #### [facility] [address] [place] [address] Yard Switch Operator: You Bro DO Urobilinogen,Ur Normal Normal 0.0-1.0 [facility] Comment on above: Performed By: #### B CECY, CBC #### [facility] [address] [place] [address] Yard Switch Operator: You Bro DO Urinalysis,Microon 4 Bacteria None Normal NONE [facility] Comment on above: Performed By: #### B CECY, CBC #### [facility] [address] [place] [address] Yard Switch Operator: You Bro DO Casts 0 TO 2 Abnormal NONE [facility] Comment on above: Performed By: #### B CECY, CBC #### [facility] [address] [place] [address] Yard Switch Operator: You Bro DO Epithelial cells LM Ql (Urine sed) 0 TO 2 Normal [facility] Comment on above: Performed By: #### B CECY, CBC #### [facility] [address] [place] [address] Yard Switch Operator: You Bro DO Urine RBC's 3 to 5 Abnormal 2 [facility] Comment on above: Performed By: #### B CECY, CBC #### [facility] [address] [place] [address] Yard Switch Operator: You Bro DO Urine WBC's 6 TO 9 Abnormal R05 [facility] Comment on above: Performed By: #### B MP, CBC #### [facility] [address] [place] [address] Yard Switch Operator: You Bro DO CBC with Diffon 05-17-2023 Abs. Basophil 0.10 k/uL Normal 0.0-0.2 [facility] Comment on above: Performed By: #### Julia Christina, CP, ALCB, CDP ####[facility] [address], [place] [phone] Director: You Bro DO Abs.Neutrophil (Seg) 6.90 k/uL Normal 1.3-9.1 [facility] Comment on above: Performed By: #### Julia Christina, CP, ALCB, CDP ####[facility] [address] [place] [facility], [place] [phone] Director: You Bro DO Basophils/100 WBC (Bld) 1 % Normal 0-2 [facility] Comment on above: Performed By: #### Julia Christina, CP, ALCB, CDP ####[facility] Kkv4896 [facility], [place] [phone] Director: You Bro DO Eosinophils (Bld) [#/Vol] 0.40 10*3/uL Normal 0.0-0.4 [facility] Comment on above: Performed By: #### uJlia Christina, CP, ALCB, CDP ####[facility] [address] [place] [facility], [place] [phone])[phone] Director: You Bro DO Eosinophils/100 WBC (Bld) 4 % Normal 0-4 [facility] Comment on above: Performed By: #### Julia Christina, CP, ALCB, CDP ####[facility] [address] [facility] [place] [address] Lab Director: You Bro DO Erythrocyte distribution width (RBC) [Ratio] 14.3 % Normal 11.5-14.9 [facility] Comment on above: Performed By: #### Julia Christina, DIANE, ALCB, CDP ####[facility] [address], [place] [phone] Director: You Bro DO Hematocrit (Bld) [Volume fraction] 39.5 % Low 41-53 [facility] Comment on above: Performed By: #### Julia Christina, CP, ALCB, CDP ####[facility] [address], [place] [phone] Director: You Bro DO Hemoglobin (Bld) [Mass/Vol] 13.5 g/dL Normal 13.5-17.5 [facility] Comment on above: Performed By: #### Julia Christina, DIANE, ALCB, CDP ####[facility] [address], [place] [phone] Director: You Bro DO Lymphocytes (Bld) [#/Vol] 2.70 10*3/uL Normal 1.0-4.8 [facility] Comment on above: Performed By: #### Julia Christina, DIANE, ALCB, CDP ####[facility] Fis[address], [place] [phone] Director: You Bro DO Lymphocytes/100 WBC (Bld) 25 % Normal 24-44 [facility] Comment on above: Performed By: #### Julia Christina, CP, ALCB, CDP ####[facility] [address], [place] [phone] Director: You Bro DO MCH (RBC) [Entitic mass] 31.3 pg Normal 26-34 [facility] Comment on above: Performed By: #### Julia Christina, CP, ALCB, CDP ####[facility] [address], [place] [phone] Director: You Bro DO MCHC (RBC) [Mass/Vol] 34.1 g/dL Normal 31-37 [facility] Comment on above: Performed By: #### Julia Christina, CP, ALCB, CDP ####[facility] [address], [place] [phone] Director: You Bro DO MCV (RBC) [Entitic vol] 91.9 fL Normal 80-100 [facility] Comment on above: Performed By: #### Julia Christina, CP, ALCB, CDP ####[facility] [address] [place] [facility], [place] [phone] Director: You Bro DO Monocytes (Bld) [#/Vol] 0.70 10*3/uL Normal 0.1-1.3 [facility] Comment on above: Performed By: #### Julia Christina, CP, ALCB, CDP ####[facility] [address] [facility], [place] [phone] Director: You Bro DO Monocytes/100 WBC (Bld) 6 % Normal 1-7 [facility] Comment on above: Performed By: #### Julia Christina, CP, ALCB, CDP ####[facility] [address] [place] [address].[place], [place] [phone] Director: You Bro DO Neutrophil (Seg) 64 % Normal 36-66 [facility] Comment on above: Performed By: #### Julia Christina, CP, ALCB, CDP ####[facility] [address] [place] [facility], [place] [phone] Director: You Bro DO Platelet mean volume (Bld) [Entitic vol] 7.7 fL Normal 6.0-12.0 [facility] Comment on above: Performed By: #### M G, CP, ALCB, CDP ####[facility] [address], [place] [phone] Director: You Bro DO Platelets (Bld) [#/Vol] 332 10*3/uL Normal 150-450 [facility] Comment on above: Performed By: #### M G, CP, ALCB, CDP ####[facility] [address], [place] [phone] Director: You Bro DO RBC (Bld) [#/Vol] 4.30 10*6/uL Low 4.5-5.9 [facility] Comment on above: Performed By: #### M G, CP, ALCB, CDP ####[facility] [id number], [place] [phone] Director: You Bro DO WBC (Bld) [#/Vol] 10.8 10*3/uL Normal 3.5-11.0 [facility] Comment on above: Performed By: #### M Carri, CP, ALCB, CDP ####[facility] [address], [place] [phone])[phone] Director: You Bro DO Comp Metabolic Profon 2023 Albumin [Mass/Vol] 4.3 g/dL Normal 3.5-5.2 [facility] Comment on above: Performed By: #### C DP, LIVP, BMPX #### [facility] [address] [place] [address] Yard Switch Operator: You Bro DO Alkaline Phos 162 U/L High 40-129 [facility] Comment on above: Performed By: #### C DP, LIVP, BMPX #### [facility] [address] [place] [address] Yard Switch Operator: Fanelly, You, DO ALT [Catalytic activity/Vol] 12 U/L Normal 5-41 [facility] Comment on above: Performed By: #### C DP, LIVP, BMPX #### [facility] [address] [place] [address] Yard Switch Operator: You Bro DO Anion gap [Moles/Vol] 16 mmol/L Normal 9-17 [facility] Comment on above: Performed By: #### C DP, LIVP, BMPX #### [facility] [address] [place] [address] Yard Switch Operator: You Bro DO AST [Catalytic activity/Vol] 17 U/L Normal <40 [facility] Comment on above: Performed By: #### C DP, LIVP, BMPX #### [facility] [place] [address] Yard Switch Operator: You Bro DO Bilirubin [Mass/Vol] 0.3 mg/dL Normal 0.3-1.2 [facility] Comment on above: Performed By: #### C DP, LIVP, BMPX #### [facility] [address] [place] [address] Yard Switch Operator: You Bro DO Calcium [Mass/Vol] 9.5 mg/dL Normal 8.6-10.4 [facility] Comment on above: Performed By: #### C DP, LIVP, BMPX #### [facility] [address] [place] [address] Yard Switch Operator: You Bro DO Chloride [Moles/Vol] 102 mmol/L Normal 98-107 [facility] Comment on above: Performed By: #### C DP, LIVP, BMPX #### [facility] [place] [address] Yard Switch Operator: You Bro DO CO2 [Moles/Vol] 17 mmol/L Low 20-31 [facility] Comment on above: Performed By: #### C DP, LIVP, BMPX #### [facility] [address] [facility] [place] [address] Yard Switch Operator: You Bro DO Creatinine [Mass/Vol] 2.5 mg/dL High 0.7-1.2 [facility] Comment on above: Performed By: #### C DP, LIVP, BMPX #### [facility] [address] [facility] [place] [address] Yard Switch Operator: You Bro DO GFR/1.73 sq M.predicted among non-blacks MDRD (S/P/Bld) [Vol rate/Area] 29 mL/min/{1.73_m2} Low >60 [facility] Comment on above: Result Comment: These [...] By: #### C DP, LIVP, BMPX #### [facility] [address] [facility] [place] [address] Yard Switch Operator: You Bro DO Glucose [Mass/Vol] 177 mg/dL High 70-99 [facility] Comment on above: Performed By: #### C DP, LIVP, BMPX #### [facility] [address] [facility] [place] [address] Yard Switch Operator: You Bro DO Potassium [Moles/Vol] 4.0 mmol/L Normal 3.7-5.3 [facility] Comment on above: Performed By: #### C DP, LIVP, BMPX #### [facility] [address] [place] [address] Yard Switch Operator: You Bro DO Protein [Mass/Vol] 8.3 g/dL Normal 6.4-8.3 [facility] Comment on above: Performed By: #### C DP, LIVP, BMPX #### [facility] [address] [place] [address] Yard Switch Operator: You Bro DO Sodium [Moles/Vol] 135 mmol/L Normal 135-144 [facility] Comment on above: Performed By: #### C DP, LIVP, BMPX #### [facility] [address] [place] [address] Yard Switch Operator: You Bro DO Urea nitrogen [Mass/Vol] 53 mg/dL High 8-23 [facility] Comment on above: Performed By: #### C DP, LIVP, BMPX #### [facility] [address] [place] [address] Yard Switch Operator: You Bro DO Drug Scr, Abuse, Uron 2023 Amphetamine(s),Ur Negative Normal NEG [facility] Comment on above: Result Comment: (Positive cutoff 1000 ng/mL) Performed By: #### B MP, CBC #### [facility] [address] [place] [address] Yard Switch Operator: You Bro DO Barbiturate(s),Ur Positive Abnormal NEG [facility] Comment on above: Result Comment: (Positive cutoff 200 ng/mL) Performed By: #### B MP, CBC #### [facility] [address] [place] [address] Yard Switch Operator: You Bro DO Benzodiazepine(s) Negative Normal NEG [facility] Comment on above: Result Comment: (Positive cutoff 200 ng/mL) Performed By: #### B MP, CBC #### [facility] [address] [place] [address] Yard Switch Operator: You Bro DO Cannabinoid(s),Ur Negative Normal [facility] Comment on above: Result Comment: (Positive cutoff 50 ng/mL) Performed By: #### B MP, CBC #### [facility] [address] [place] [address] Yard Switch Operator: You Bro DO Cocaine Metabolite Negative [facility] Comment on above: Result Comment: (Positive cutoff 300 ng/mL) Performed By: #### B MP, CBC #### [facility] [address] [place] [address] Yard Switch Operator: You Bro DO Fentanyl, Urine Negative [facility] Comment on above: Result Comment: (Positive cutoff 5 ng/ml) Performed By: #### B MP, CBC #### [facility] [address] [place] [address] Yard Switch Operator: You Bro DO Interpretive Info Assay provides medical screening only. The absence of expected drug(s) and/or Normal [facility] Comment on above: Result Comment: meta bolite(s) may indicate diluted or adulterated urine, limitations of testing or timing of collection. Testing for legal purposes should be confirmed by another method. To request confirmation of test result, please call the lab within 7 days of sample submission. Performed By: #### B MP, CBC #### [facility] [address] [place] [address] Yard Switch Operator: You Bro DO Methadone Ql (U) Negative [facility] Comment on above: Result Comment: (Positive cutoff 300 ng/mL) Performed By: #### B MP, CBC #### [facility] [address] [place] [address] Yard Switch Operator: You Bro DO Opiate(s), Ur Negative Normal NEG [facility] Comment on above: Result Comment: (Positive cutoff 300 ng/mL) Performed By: #### B MP, CBC #### [facility] [address] [place] [address] Yard Switch Operator: You Bro DO Oxycodone, Urine Negative Normal NEG [facility] Comment on above: Result Comment: (Positive cutoff 100 ng/mL) Performed By: #### B MP, CBC #### [facility] [address] [place] [address] Yard Switch Operator: You Bro DO Phencyclidine, Ur Negative Normal NEG [facility] Comment on above: Result Comment: (Positive cutoff 25 ng/mL) Performed By: #### B MP, CBC #### [facility] [address] [place] [address] Yard Switch Operator: You Bro DO Ethanol Alcoholon 05-17-2023 Ethanol [Mass/Vol] mg/dL Normal <10 [facility] Comment on above: Performed By: #### M G, CP, ALCB, CDP ####[facility] [address] [place], [place] [phone] Director: You Bro DO Ethanol percent <0.010 Normal [facility] Comment on above: Performed By: #### M G, CP, ALCB, CDP ####[facility] [address] [place] [address] Lab Director: You Bro DO Magnesiumon 05-17-2023 Magnesium [Mass/Vol] 2.2 mg/dL Normal 1.6-2.6 [facility] Comment on above: Performed By: #### C DP, LIVP, BMPX #### [facility] [address] [place] [address] Yard Switch Operator: You Bro DO Alanine aminotransferase [En zymatic activity/volume] in Serum or PlasmaOrdered By: Saturnino Ballard on 02-22-2023 ALT [Catalytic activity/Vol] 18 U/L 7-52 [facility] Albumin [Mass/volume] in Ser um or Plasma by Bromocresol green (BCG) dye binding methoOrdered By: Saturnino Ballard on 02-22-2023 Albumin BCG dye [Mass/Vol] 4.4 g/dL 3.5-5.7 [facility] Alkaline phosphatase [Enzyma tic activity/volume] in Serum or PlasmaOrdered By: Saturnino Ballard on 02-22-2023 ALP [Catalytic activity/Vol] 109 U/L 34-104 [facility] Amphetamine Screen Ql (U)Ord ered By: Saturnino Ballard on 02-22-2023 Amphetamines Ql (U) Negative Negative [facility] Aspartate aminotransferase [ Enzymatic activity/volume] in Serum or PlasmaOrdered By: Saturnino Ballard on 02-22-2023 AST [Catalytic activity/Vol] 19 U/L 13-39 [facility] Automated erythrocytes count in urine sediment (number/area)Ordered By: Saturnino Ballard on 02-22-2023 RBC Auto (Urine sed) [#/Area] 1-2 [HPF] 0-4 [facility] Automated leukocytes count i n urine sediment (number/area)Ordered By: Saturnino Ballard on 02-22-2023 WBC Auto (Urine sed) [#/Area] Innumerable [HPF] 0-4 [facility] Barbiturates [Presence] in U rine by Screen methodOrdered By: Saturnino Ballard on 02-22-2023 Barbiturates Screen Ql (U) Negative Negative [facility] Basophils Auto (Bld) [#/Vol] Ordered By: Saturnino Ballard on 02-22-2023 Basophils (Bld) [#/Vol] 0.1 10*3/uL 0.0-0.2 [facility] Basophils/100 WBC Auto (Bld) Ordered By: Saturnino Ballard on 02-22-2023 Basophils/100 WBC (Bld) 0.7 % . [facility] Benzodiazepines Screen Ql (U )Ordered By: Saturnino Ballard on 02-22-2023 Benzodiazepines Ql (U) Negative Negative [facility] Benzoylecgonine [Presence] i n Urine by Screen methodOrdered By: Saturnino Ballard on 02-22-2023 Benzoylecgonine Screen Ql (U) Negative Negative [facility] Beta hydroxybutyrate [Moles/ volume] in Serum or PlasmaOrdered By: Saturnino Ballard on 02-22-2023 Beta hydroxybutyrate [Moles/Vol] 0.30 mmol/L 0.02-0.27 [facility] Bilirubin Test strip Ql (U)O rdered By: Saturnino Ballard on 02-22-2023 Bilirubin Ql (U) Negative Negative [facility] Bilirubin.total [Mass/volume ] in Serum or PlasmaOrdered By: Saturnino Ballard on 02-22-2023 Bilirubin [Mass/Vol] 0.6 mg/dL 0.3-1.0 [facility] Calcium [Mass/volume] in Ser um or PlasmaOrdered By: Saturnino Ballard on 02-22-2023 Calcium [Mass/Vol] 9.8 mg/dL 8.6-10.3 [facility] Cannabinoids [Presence] in U rine by Screen methodOrdered By: Saturnino Ballard on 02-22-2023 Cannabinoids Screen Ql (U) Negative Negative [facility] Comment on above: These are unconfirme d results and should not be used for legal purposes. Drug Cut-Off Concentration: AMPH 1000 ng/mL WILMER 200 ng/mL FELICIA 200 ng/mL COCM 300 ng/mL OP 300 ng/mL PCP 25 ng/mL THC 20 ng/mL Carbon dioxide, total [Moles /volume] in Serum or PlasmaOrdered By: Saturnino Ballard on 02-22-2023 CO2 [Moles/Vol] 14.9 mmol/L 21.0-31.0 [facility] Chloride [Moles/volume] in S russ or PlasmaOrdered By: Saturnino Ballard on 02-22-2023 Chloride [Moles/Vol] 106 mmol/L 98-107 [facility] Color Auto (U)Ordered By: Vish Ballard on 02-22-2023 Color (U) Yellow Yellow [facility] Creatinine [Mass/volume] in Serum or PlasmaOrdered By: Saturnino Ballard on 02-22-2023 Creatinine [Mass/Vol] 2.50 mg/dL 0.70-1.30 [facility] Eosinophils Auto (Bld) [#/Vo l]Ordered By: Saturnino Ballard on 02-22-2023 Eosinophils (Bld) [#/Vol] 0.2 10*3/uL 0.0-0.45 [facility] Eosinophils/100 WBC Auto (Bl d)Ordered By: Saturnino Ballard on 02-22-2023 Eosinophils/100 WBC (Bld) 2.0 % . [facility] Erythrocyte distribution wid th Auto (RBC) [Ratio]Ordered By: Saturnino Ballard on 02-22-2023 Erythrocyte distribution width (RBC) [Ratio] 14.7 % 12.0-14.8 [facility] Ethanol [Mass/volume] in Ser um or PlasmaOrdered By: Saturnino Ballard on 02-22-2023 Ethanol [Mass/Vol] mg/dL [facility] Ethanol [Mass/Vol] TNP [facility] Comment on above: Test not performed Globulin Calc (S) [Mass/Vol] Ordered By: Saturnino Ballard on 02-22-2023 Globulin (S) [Mass/Vol] 4.1 g/dL [facility] Glucose [Mass/volume] in Ser um or PlasmaOrdered By: Saturnino Ballard on 02-22-2023 Glucose [Mass/Vol] 196 mg/dL 70-100 [facility] Comment on above: ADA recommended refe rence rangeRandom Glucose Reference Range is dependent on time and content of last meal. Glucose of more than 200 mg/dL in a nonstressed, ambulatory subject supports the diagnosis of Diabetes Mellitus. Hematocrit Auto (Bld) [Volum e fraction]Ordered By: Saturnino Ballard on 02-22-2023 Hematocrit (Bld) [Volume fraction] 38.4 % 38.8-50.0 [facility] Hemoglobin [Mass/volume] in BloodOrdered By: Saturnino Ballard on 02-22-2023 Hemoglobin (Bld) [Mass/Vol] 13.0 g/dL 13.0-17.0 [facility] Ketones Auto test strip (U) [Mass/Vol]Ordered By: Saturnino Ballard on 02-22-2023 Ketones (U) [Mass/Vol] Negative Negative [facility] - UrinalysisOrder ed By: Saturnino Ballard on 02-22-2023 Hyaline casts LM Ql (Urine sed) 0-8 [LPF] 0-8 [facility] Leukocytes [#/volume] correc heather for nucleated erythrocytes in Blood by Automated counOrdered By: Saturnino Ballard on 02-22-2023 WBC corrected for nucl RBC Auto (Bld) [#/Vol] 11.8 10*3/uL 4.1-10.5 [facility] Lymphocytes Auto (Bld) [#/Vo l]Ordered By: Saturnino Ballard on 02-22-2023 Lymphocytes (Bld) [#/Vol] 3.7 10*3/uL 1.00-4.8 [facility] Lymphocytes/100 WBC Auto (Bl d)Ordered By: Saturnino Ballard on 02-22-2023 Lymphocytes/100 WBC (Bld) 31.4 % . [facility] MCH Auto (RBC) [Entitic mass ]Ordered By: Saturnino Ballard on 02-22-2023 MCH (RBC) [Entitic mass] 29.7 pg 27.5-35.2 [facility] MCHC Auto (RBC) [Mass/Vol]Or dered By: Saturnino Ballard on 02-22-2023 MCHC (RBC) [Mass/Vol] 33.9 g/dL 32.5-35.6 [facility] MCV Auto (RBC) [Entitic vol] Ordered By: Saturnino Ballard on 02-22-2023 MCV (RBC) [Entitic vol] 87.6 fL 83.5-101 [facility] Monocyte distribution width [Entitic volume] in Blood by AutomatedOrdered By: Saturnino Ballard on 02-22-2023 Monocyte distribution width Auto (Bld) [Entitic vol] 19.65 % 0.00-20.00 [facility] Monocytes Auto (Bld) [#/Vol] Ordered By: Saturnino Ballard on 02-22-2023 Monocytes (Bld) [#/Vol] 1.0 10*3/uL 0.0-0.8 [facility] Monocytes/100 WBC Auto (Bld) Ordered By: Saturnino Ballard on 02-22-2023 Monocytes/100 WBC (Bld) 8.5 % . [facility] Neutrophils Auto (Bld) [#/Vo l]Ordered By: Saturnino Ballard on 02-22-2023 Neutrophils (Bld) [#/Vol] 6.8 10*3/uL 1.8-7.7 [facility] Neutrophils/100 WBC Auto (Bl d)Ordered By: Saturnino Ballard on 02-22-2023 Neutrophils/100 WBC (Bld) 57.4 % . [facility] Nitrite Test strip Ql (U)Ord ered By: Saturnino Ballard on 02-22-2023 Nitrite Ql (U) Negative Negative [facility] No Panel InformationOrdered By: Saturnino Ballard on 02-22-2023 Estimated GFR (CKD-EPI) 28.516 mL/Min [facility] Creatinine Clearance (Chem 47.49 [facility] Nucleated erythrocytes [Pres ence] in Blood by Automated countOrdered By: Saturnino Ballard on 02-22-2023 Nucleated RBC Auto Ql (Bld) 0.1 /100{WBC} 0-0.5 [facility] Opiates [Presence] in Urine by Screen methodOrdered By: Saturnino Ballard on 02-22-2023 Opiates Screen Ql (U) Negative Negative [facility] Phencyclidine Screen Ql (U)O rdered By: Saturnino Ballard on 02-22-2023 Phencyclidine Ql (U) Negative Negative [facility] Platelet mean volume Auto (B ld) [Entitic vol]Ordered By: Saturnino Ballard on 02-22-2023 Platelet mean volume (Bld) [Entitic vol] 8.6 fL 6.6-10.1 [facility] Platelets Auto (Bld) [#/Vol] Ordered By: Saturnino Ballard on 02-22-2023 Platelets (Bld) [#/Vol] 333 10*3/uL 150-450 [facility] Potassium [Moles/volume] in Serum or PlasmaOrdered By: Saturnino Ballard on 02-22-2023 Potassium [Moles/Vol] 3.3 mmol/L 3.5-5.1 [facility] Protein Auto test strip (U) [Mass/Vol]Ordered By: Saturnino Ballard on 02-22-2023 Protein (U) [Mass/Vol] 30 mg/dL Negative [facility] Protein [Mass/volume] in Ser um or PlasmaOrdered By: Saturnino Ballard on 02-22-2023 Protein [Mass/Vol] 8.5 g/dL 6.4-8.9 [facility] RBC Auto (Bld) [#/Vol]Ordere d By: Saturnino Ballard on 02-22-2023 RBC (Bld) [#/Vol] 4.39 10*6/uL 3.90-5.60 [facility] Serum or plasma albumin/glob ulin mass ratioOrdered By: Saturnino Ballard on 02-22-2023 Albumin/Globulin [Mass ratio] 1.1 {ratio} [facility] Serum or plasma anion gap de terminationOrdered By: Satunrino Ballard on 02-22-2023 Anion gap [Moles/Vol] 19.4 mmol/L 6.0-15.0 [facility] Sodium [Moles/volume] in Ser um or PlasmaOrdered By: Saturnino Ballard on 02-22-2023 Sodium [Moles/Vol] 137 mmol/L 136-145 [facility] Specific gravity Auto test s trip (U) [Rel density]Ordered By: Saturnino Ballard on 02-22-2023 Specific gravity (U) [Rel density] 1.016 1.001-1.030 [facility] Squamous epithelial cells de tection in urine sediment by light microscopyOrdered By: Saturnino Ballard on 02-22-2023 Epithelial cells.squamous LM Ql (Urine sed) 3-4 [HPF] 0-2 [facility] Troponin I.cardiac [Mass/vol ume] in Serum or Plasma by Detection limit <= 0.01 ng/Ordered By: Saturnino Ballard on 02-22-2023 Troponin I.cardiac DL <= 0.01 ng/mL [Mass/Vol] 4.4 pg/mL 0.0-20.0 [facility] Urea nitrogen [Mass/volume] in Serum or PlasmaOrdered By: Saturnino Ballard on 02-22-2023 Urea nitrogen [Mass/Vol] 46 mg/dL 7-25 [facility] Urine bacteria detection by automated methodOrdered By: Saturnino Ballard on 02-22-2023 Bacteria Auto Ql (U) None seen None Seen [facility] Urine clarity by refractomet ry automatedOrdered By: Saturnino Ballard on 02-22-2023 Clarity Refractometry automated (U) Cloudy Clear [facility] Urine glucose measurement by automated test strip (mass/volume)Ordered By: Saturnino Ballard on 02-22-2023 Glucose Auto test strip (U) [Mass/Vol] Normal mg/dL Normal [facility] Urine hemoglobin detection b y automated test stripOrdered By: Saturnino Ballard on 02-22-2023 Hemoglobin Auto test strip Ql (U) 1+ Negative [facility] Urine leukocyte esterase det ection by automated test stripOrdered By: Saturnino Ballard on 02-22-2023 Leukocyte esterase Auto test strip Ql (U) 4+ Negative [facility] Urobilinogen Auto test strip (U) [Mass/Vol]Ordered By: Saturnino Ballard on 02-22-2023 Urobilinogen (U) [Mass/Vol] Normal mg/dL Normal [facility] WBC Auto (Bld) [#/Vol]Ordere d By: Saturnino Ballard on 02-22-2023 WBC (Bld) [#/Vol] 11.8 10*3/uL 4.1-10.5 [facility] pH Auto test strip (U)Ordere d By: Saturnino Ballard on 02-22-2023 pH (U) 5.5 [pH] 5.0-9.0 [facility] Glucose Glucometer (BldC) [M ass/Vol]Ordered By: Arash Henry on 02-13-2023 Glucose [Mass/Vol] 224 mg/dL [facility] Comment on above: Random Glucose Refer ence Range is dependent on time and content of last meal. Glucose of more than 200 mg/dL in a nonstressed, ambulatory subject supports the diagnosis of Diabetes Mellitus. Calcium [Mass/volume] in Ser um or PlasmaOrdered By: Arash Henry on 02-09-2023 Calcium [Mass/Vol] 9.1 mg/dL 8.6-10.3 [facility] Carbon dioxide, total [Moles /volume] in Serum or PlasmaOrdered By: Arash Henry on 02-09-2023 CO2 [Moles/Vol] 22.5 mmol/L 21.0-31.0 [facility] Chloride [Moles/volume] in S russ or PlasmaOrdered By: Arash Henry on 02-09-2023 Chloride [Moles/Vol] 108 mmol/L 98-107 [facility] Creatinine [Mass/volume] in Serum or PlasmaOrdered By: Arash Henry on 02-09-2023 Creatinine [Mass/Vol] 2.68 mg/dL 0.70-1.30 [facility] Glucose [Mass/volume] in Ser um or PlasmaOrdered By: Arash Henry on 02-09-2023 Glucose [Mass/Vol] 162 mg/dL 70-100 [facility] Comment on above: ADA recommended refe rence rangeRandom Glucose Reference Range is dependent on time and content of last meal. Glucose of more than 200 mg/dL in a nonstressed, ambulatory subject supports the diagnosis of Diabetes Mellitus. No Panel InformationOrdered By: Arash Henry on 02-09-2023 Estimated GFR (CKD-EPI) 26.234 mL/Min [facility] Creatinine Clearance (Chem 44.00 [facility] Potassium [Moles/volume] in Serum or PlasmaOrdered By: Arash Henry on 02-09-2023 Potassium [Moles/Vol] 3.7 mmol/L 3.5-5.1 [facility] Serum or plasma anion gap de terminationOrdered By: Arash Henry on 02-09-2023 Anion gap [Moles/Vol] 13.2 mmol/L 6.0-15.0 [facility] Sodium [Moles/volume] in Ser um or PlasmaOrdered By: Arash Henry on 02-09-2023 Sodium [Moles/Vol] 140 mmol/L 136-145 [facility] Urea nitrogen [Mass/volume] in Serum or PlasmaOrdered By: Arash Henry on 02-09-2023 Urea nitrogen [Mass/Vol] 39 mg/dL 7-25 [facility] Basophils Auto (Bld) [#/Vol] Ordered By: Arash Henry on 02-08-2023 Basophils (Bld) [#/Vol] 0.1 10*3/uL 0.0-0.2 [facility] Basophils/100 WBC Auto (Bld) Ordered By: Arash Henry on 02-08-2023 Basophils/100 WBC (Bld) 0.8 % . [facility] Eosinophils Auto (Bld) [#/Vo l]Ordered By: Arash Henry on 02-08-2023 Eosinophils (Bld) [#/Vol] 0.4 10*3/uL 0.0-0.45 [facility] Eosinophils/100 WBC Auto (Bl d)Ordered By: Arash Henry on 02-08-2023 Eosinophils/100 WBC (Bld) 3.8 % . [facility] Erythrocyte distribution wid th Auto (RBC) [Ratio]Ordered By: Arash Henry on 02-08-2023 Erythrocyte distribution width (RBC) [Ratio] 14.4 % 12.0-14.8 [facility] Hematocrit Auto (Bld) [Volum e fraction]Ordered By: Arash Henry on 02-08-2023 Hematocrit (Bld) [Volume fraction] 37.5 % 38.8-50.0 [facility] Hemoglobin [Mass/volume] in BloodOrdered By: Arash Henry on 02-08-2023 Hemoglobin (Bld) [Mass/Vol] 12.9 g/dL 13.0-17.0 [facility] Leukocytes [#/volume] correc heather for nucleated erythrocytes in Blood by Automated counOrdered By: Arash Henry on 02-08-2023 WBC corrected for nucl RBC Auto (Bld) [#/Vol] 9.3 10*3/uL 4.1-10.5 [facility] Lymphocytes Auto (Bld) [#/Vo l]Ordered By: Arash eHnry on 02-08-2023 Lymphocytes (Bld) [#/Vol] 2.7 10*3/uL 1.00-4.8 [facility] Lymphocytes/100 WBC Auto (Bl d)Ordered By: Arash Henry on 02-08-2023 Lymphocytes/100 WBC (Bld) 28.9 % . [facility] MCH Auto (RBC) [Entitic mass ]Ordered By: Arash Henry on 02-08-2023 MCH (RBC) [Entitic mass] 30.1 pg 27.5-35.2 [facility] MCHC Auto (RBC) [Mass/Vol]Or dered By: Arash Henry on 02-08-2023 MCHC (RBC) [Mass/Vol] 34.5 g/dL 32.5-35.6 [facility] MCV Auto (RBC) [Entitic vol] Ordered By: Arash Henry on 02-08-2023 MCV (RBC) [Entitic vol] 87.2 fL 83.5-101 [facility] Monocytes Auto (Bld) [#/Vol] Ordered By: Arash Henry on 02-08-2023 Monocytes (Bld) [#/Vol] 0.7 10*3/uL 0.0-0.8 [facility] Monocytes/100 WBC Auto (Bld) Ordered By: Arash Henry on 02-08-2023 Monocytes/100 WBC (Bld) 7.3 % . [facility] Neutrophils Auto (Bld) [#/Vo l]Ordered By: Arash Henry on 02-08-2023 Neutrophils (Bld) [#/Vol] 5.5 10*3/uL 1.8-7.7 [facility] Neutrophils/100 WBC Auto (Bl d)Ordered By: Arash Henry on 02-08-2023 Neutrophils/100 WBC (Bld) 59.2 % . [facility] Nucleated erythrocytes [Pres ence] in Blood by Automated countOrdered By: Arash Henry on 02-08-2023 Nucleated RBC Auto Ql (Bld) 0.1 /100{WBC} 0-0.5 [facility] Platelet mean volume Auto (B ld) [Entitic vol]Ordered By: Arash Henry on 02-08-2023 Platelet mean volume (Bld) [Entitic vol] 8.1 fL 6.6-10.1 [facility] Platelets Auto (Bld) [#/Vol] Ordered By: Arash Henry on 02-08-2023 Platelets (Bld) [#/Vol] 302 10*3/uL 150-450 [facility] RBC Auto (Bld) [#/Vol]Ordere d By: Arash Henry on 02-08-2023 RBC (Bld) [#/Vol] 4.30 10*6/uL 3.90-5.60 [facility] WBC Auto (Bld) [#/Vol]Ordere d By: Arash Carl on 02-08-2023 WBC (Bld) [#/Vol] 9.3 10*3/uL 4.1-10.5 [facility] Alanine aminotransferase [En zymatic activity/volume] in Serum or PlasmaOrdered By: Ewa Kim on 02-07-2023 ALT [Catalytic activity/Vol] 10 U/L 7-52 [facility] Albumin [Mass/volume] in Ser um or Plasma by Bromocresol green (BCG) dye binding methoOrdered By: Ewa Kim on 02-07-2023 Albumin BCG dye [Mass/Vol] 4.3 g/dL 3.5-5.7 [facility] Alkaline phosphatase [Enzyma tic activity/volume] in Serum or PlasmaOrdered By: Ewa Kim on 02-07-2023 ALP [Catalytic activity/Vol] 123 U/L 34-104 [facility] Amphetamine Screen Ql (U)Ord ered By: Ewa Kim on 02-07-2023 Amphetamines Ql (U) Negative Negative [facility] Aspartate aminotransferase [ Enzymatic activity/volume] in Serum or PlasmaOrdered By: Ewa [place] on 02-07-2023 AST [Catalytic activity/Vol] 15 U/L 13-39 [facility] Automated erythrocytes count in urine sediment (number/area)Ordered By: Ewa Kim on 02-07-2023 RBC Auto (Urine sed) [#/Area] 0-1 [HPF] 0-4 [facility] Automated leukocytes count i n urine sediment (number/area)Ordered By: Ewa Kim on 02-07-2023 WBC Auto (Urine sed) [#/Area] Innumerable [HPF] 0-4 [facility] Barbiturates [Presence] in U rine by Screen methodOrdered By: Ewa Kim on 02-07-2023 Barbiturates Screen Ql (U) Negative Negative [facility] Basophils Auto (Bld) [#/Vol] Ordered By: Ewa Bullimore on 02-07-2023 Basophils (Bld) [#/Vol] 0.1 10*3/uL 0.0-0.2 [facility] Basophils/100 WBC Auto (Bld) Ordered By: Ewa Bullimore on 02-07-2023 Basophils/100 WBC (Bld) 0.9 % . [facility] Benzodiazepines Screen Ql (U )Ordered By: Ewa Bullimore on 02-07-2023 Benzodiazepines Ql (U) Negative Negative [facility] Benzoylecgonine [Presence] i n Urine by Screen methodOrdered By: Ewa Bullimore on 02-07-2023 Benzoylecgonine Screen Ql (U) Negative Negative [facility] Bilirubin Test strip Ql (U)O rdered By: Ewa Bullimore on 02-07-2023 Bilirubin Ql (U) Negative Negative [facility] Bilirubin.total [Mass/volume ] in Serum or PlasmaOrdered By: Ewa Bullimore on 02-07-2023 Bilirubin [Mass/Vol] 0.7 mg/dL 0.3-1.0 [facility] Calcium [Mass/volume] in Ser um or PlasmaOrdered By: Ewa Bullimore on 02-07-2023 Calcium [Mass/Vol] 9.8 mg/dL 8.6-10.3 [facility] Cannabinoids [Presence] in U rine by Screen methodOrdered By: Ewa Stevenimore on 02-07-2023 Cannabinoids Screen Ql (U) Negative Negative [facility] Comment on above: These are unconfirme d results and should not be used for legal purposes. Drug Cut-Off Concentration: AMPH 1000 ng/mL WILMER 200 ng/mL FELICIA 200 ng/mL COCM 300 ng/mL OP 300 ng/mL PCP 25 ng/mL THC 20 ng/mL Carbon dioxide, total [Moles /volume] in Serum or PlasmaOrdered By: Ewa Stevenimore on 02-07-2023 CO2 [Moles/Vol] 18.4 mmol/L 21.0-31.0 [facility] Chloride [Moles/volume] in S russ or PlasmaOrdered By: Ewa Bullimore on 02-07-2023 Chloride [Moles/Vol] 102 mmol/L 98-107 [facility] Cholesterol [Mass/volume] in Serum or PlasmaOrdered By: Arash Henry on 02-07-2023 Cholesterol [Mass/Vol] 142 mg/dL 140-200 [facility] Comment on above: Chol less than 200 m g/dl low riskChol 201-239 mg/dl borderline riskChol 240 mg/dl and greater high risk Cholesterol in LDL Calc [Mas s/Vol]Ordered By: Arash Henry on 02-07-2023 Cholesterol in LDL [Mass/Vol] 58 mg/dL 0-100 [facility] Comment on above: LDL ATP III CLASSIFI CATIONLDL less than 100 mg/dL OptimalLDL 100-129 mg/dL Near or above optimalLDL 130-159 mg/dL Borderline highLDL 160-189 mg/dL HighLDL greater than 189 mg/dL Very high Cholesterol in VLDL Calc [Ma ss/Vol]Ordered By: Arash Henry on 02-07-2023 Cholesterol in VLDL [Mass/Vol] 53 mg/dL [facility] Color Auto (U)Ordered By: Jailyn Kim on 02-07-2023 Color (U) Yellow Yellow [facility] Creatinine [Mass/volume] in Serum or PlasmaOrdered By: Ewa Kim on 02-07-2023 Creatinine [Mass/Vol] 2.87 mg/dL 0.70-1.30 [facility] Eosinophils Auto (Bld) [#/Vo l]Ordered By: Ewa Stevenimore on 02-07-2023 Eosinophils (Bld) [#/Vol] 0.3 10*3/uL 0.0-0.45 [facility] Eosinophils/100 WBC Auto (Bl d)Ordered By: Ewa Bullimore on 02-07-2023 Eosinophils/100 WBC (Bld) 2.1 % . [facility] Erythrocyte distribution wid th Auto (RBC) [Ratio]Ordered By: Ewa iKm on 02-07-2023 Erythrocyte distribution width (RBC) [Ratio] 14.2 % 12.0-14.8 [facility] Ethanol [Mass/volume] in Ser um or PlasmaOrdered By: Ewa Bullimore on 02-07-2023 Ethanol [Mass/Vol] mg/dL [facility] Ethanol [Mass/Vol] TNP [facility] Comment on above: Test not performed Globulin Calc (S) [Mass/Vol] Ordered By: Ewa Kim on 02-07-2023 Globulin (S) [Mass/Vol] 3.8 g/dL [facility] Glucose [Mass/volume] in Ser um or PlasmaOrdered By: Ewa Kim on 02-07-2023 Glucose [Mass/Vol] 63 mg/dL 70-100 [facility] Comment on above: ADA recommended refe rence rangeRandom Glucose Reference Range is dependent on time and content of last meal. Glucose of more than 200 mg/dL in a nonstressed, ambulatory subject supports the diagnosis of Diabetes Mellitus. Hematocrit Auto (Bld) [Volum e fraction]Ordered By: Ewa Kim on 02-07-2023 Hematocrit (Bld) [Volume fraction] 37.7 % 38.8-50.0 [facility] Hemoglobin [Mass/volume] in BloodOrdered By: Ewa Kim on 02-07-2023 Hemoglobin (Bld) [Mass/Vol] 13.3 g/dL 13.0-17.0 [facility] Ketones Auto test strip (U) [Mass/Vol]Ordered By: Ewa Kim on 02-07-2023 Ketones (U) [Mass/Vol] Negative Negative [facility] Laboratory - UrinalysisOrder ed By: Ewa Kim on 02-07-2023 Hyaline casts LM Ql (Urine sed) 0-8 [LPF] 0-8 [facility] Leukocytes [#/volume] correc heather for nucleated erythrocytes in Blood by Automated counOrdered By: Ewa Kim on 02-07-2023 WBC corrected for nucl RBC Auto (Bld) [#/Vol] 12.4 10*3/uL 4.1-10.5 [facility] Lymphocytes Auto (Bld) [#/Vo l]Ordered By: Ewa Kim on 02-07-2023 Lymphocytes (Bld) [#/Vol] 4.0 10*3/uL 1.00-4.8 [facility] Lymphocytes/100 WBC Auto (Bl d)Ordered By: Ewa Bullimore on 02-07-2023 Lymphocytes/100 WBC (Bld) 32.2 % . [facility] MCH Auto (RBC) [Entitic mass ]Ordered By: Ewa Bullimore on 02-07-2023 MCH (RBC) [Entitic mass] 30.2 pg 27.5-35.2 [facility] MCHC Auto (RBC) [Mass/Vol]Or dered By: Ewa Bullimore on 02-07-2023 MCHC (RBC) [Mass/Vol] 35.2 g/dL 32.5-35.6 [facility] MCV Auto (RBC) [Entitic vol] Ordered By: Ewa Bullimore on 02-07-2023 MCV (RBC) [Entitic vol] 85.7 fL 83.5-101 [facility] Monocyte distribution width [Entitic volume] in Blood by AutomatedOrdered By: Ewa Bullimore on 02-07-2023 Monocyte distribution width Auto (Bld) [Entitic vol] 17.26 % 0.00-20.00 [facility] Monocytes Auto (Bld) [#/Vol] Ordered By: Ewa Bullimore on 02-07-2023 Monocytes (Bld) [#/Vol] 1.2 10*3/uL 0.0-0.8 [facility] Monocytes/100 WBC Auto (Bld) Ordered By: Ewa Bullimore on 02-07-2023 Monocytes/100 WBC (Bld) 9.4 % . [facility] Neutrophils Auto (Bld) [#/Vo l]Ordered By: Ewa Bullimore on 02-07-2023 Neutrophils (Bld) [#/Vol] 6.8 10*3/uL 1.8-7.7 [facility] Neutrophils/100 WBC Auto (Bl d)Ordered By: Ewa Bullimore on 02-07-2023 Neutrophils/100 WBC (Bld) 55.4 % . [facility] Nitrite Test strip Ql (U)Ord ered By: Ewa Stevenimore on 02-07-2023 Nitrite Ql (U) Negative Negative [facility] No Panel InformationOrdered By: Ewa Bullimore on 02-07-2023 Estimated GFR (CKD-EPI) 24.164 mL/Min [facility] Creatinine Clearance (Chem 41.08 [facility] Nucleated erythrocytes [Pres ence] in Blood by Automated countOrdered By: Ewa Stevenimore on 02-07-2023 Nucleated RBC Auto Ql (Bld) 0.0 /100{WBC} 0-0.5 [facility] Opiates [Presence] in Urine by Screen methodOrdered By: Ewa Bullimore on 02-07-2023 Opiates Screen Ql (U) Negative Negative [facility] Phencyclidine Screen Ql (U)O rdered By: Ewa Bullimore on 02-07-2023 Phencyclidine Ql (U) Negative Negative [facility] Platelet mean volume Auto (B ld) [Entitic vol]Ordered By: Ewa Stevenimore on 02-07-2023 Platelet mean volume (Bld) [Entitic vol] 8.4 fL 6.6-10.1 [facility] Platelets Auto (Bld) [#/Vol] Ordered By: Ewa Stevenimore on 02-07-2023 Platelets (Bld) [#/Vol] 332 10*3/uL 150-450 [facility] Potassium [Moles/volume] in Serum or PlasmaOrdered By: Ewa Stevenimore on 02-07-2023 Potassium [Moles/Vol] 2.8 mmol/L 3.5-5.1 [facility] Comment on above: Critical Result Call ed to and read back by: IONA HIGGINBOTHAM at: 02/07/2023 14:36:39 by:[id number] Protein Auto test strip (U) [Mass/Vol]Ordered By: Ewa Kim on 02-07-2023 Protein (U) [Mass/Vol] Trace mg/dL Negative F [facility] Protein [Mass/volume] in Ser um or PlasmaOrdered By: Ewa Bullimore on 02-07-2023 Protein [Mass/Vol] 8.1 g/dL 6.4-8.9 [facility] RBC Auto (Bld) [#/Vol]Ordere d By: Ewa Bullimore on 02-07-2023 RBC (Bld) [#/Vol] 4.40 10*6/uL 3.90-5.60 [facility] Serum or plasma albumin/glob ulin mass ratioOrdered By: Ewa Kim on 02-07-2023 Albumin/Globulin [Mass ratio] 1.1 {ratio} [facility] Serum or plasma anion gap de terminationOrdered By: Ewa Kim on 02-07-2023 Anion gap [Moles/Vol] 17.4 mmol/L 6.0-15.0 [facility] Serum or plasma high density lipoprotein (HDL) cholesterol measurementOrdered By: Arash Henry on 02-07-2023 Cholesterol in HDL [Mass/Vol] 31 mg/dL 23-92 [facility] Comment on above: HDL CHOL ATP-III CLA SSIFICATION Cardiovascular RiskHDL > or equal to 60 mg/dL LOWHDL < 40 mg/dL HIGH Serum or plasma total choles terol/high density lipoprotein (HDL) cholesterol mass ratOrdered By: Arash Henry on 02-07-2023 Cholesterol.total/Chol esterol in HDL [Mass ratio] 4.6 {ratio} <5.0 [facility] Sodium [Moles/volume] in Ser um or PlasmaOrdered By: Ewa Kim on 02-07-2023 Sodium [Moles/Vol] 135 mmol/L 136-145 [facility] Specific gravity Auto test s trip (U) [Rel density]Ordered By: Ewa Kim on 02-07-2023 Specific gravity (U) [Rel density] 1.012 1.001-1.030 [facility] Squamous epithelial cells de tection in urine sediment by light microscopyOrdered By: Ewa Kim on 02-07-2023 Epithelial cells.squamous LM Ql (Urine sed) 3-4 [HPF] 0-2 [facility] Thyrotropin [Units/volume] i n Serum or PlasmaOrdered By: Ewa Kim on 02-07-2023 TSH Qn 4.29 m[IU]/L 0.45-5.33 [facility] Triglyceride [Mass/volume] i n Serum or PlasmaOrdered By: Arash Henry on 02-07-2023 Triglyceride [Mass/Vol] 265 mg/dL 0-149 [facility] Comment on above: TRIG ATP III CLASSIF ICATIONTRIG less than 150 mg/dL NormalTRIG 150-199 mg/dL Borderline highTRIG 200-500 mg/dL High TRIG greater than 500 mg/dL Very highStandard traceable to the Center for Disease Conrtrol and Prevention (CDC) test method. Urea nitrogen [Mass/volume] in Serum or PlasmaOrdered By: Eaw Kim on 02-07-2023 Urea nitrogen [Mass/Vol] 50 mg/dL 7- [facility] Urine bacteria detection by automated methodOrdered By: Ewa Kim on 02-07-2023 Bacteria Auto Ql (U) 2+ None Seen [facility] Urine clarity by refractomet ry automatedOrdered By: Ewa Kim on 02-07-2023 Clarity Refractometry automated (U) Cloudy Clear [facility] Urine culture routineOrdered By: Ewa Kim on 02-07-2023 Bacteria identified Cx Nom (U) Nida albicans [facility] Urine glucose measurement by automated test strip (mass/volume)Ordered By: Ewa Kim on 02-07-2023 Glucose Auto test strip (U) [Mass/Vol] Normal mg/dL Normal [facility] Urine hemoglobin detection b y automated test stripOrdered By: Ewa Kim on 02-07-2023 Hemoglobin Auto test strip Ql (U) Trace Negative [facility] Urine leukocyte esterase det ection by automated test stripOrdered By: Eaw Kim on 02-07-2023 Leukocyte esterase Auto test strip Ql (U) 4+ Negative [facility] Urobilinogen Auto test strip (U) [Mass/Vol]Ordered By: Ewa iKm on 02-07-2023 Urobilinogen (U) [Mass/Vol] Normal mg/dL Normal [facility] Vitamin D+Metabolites [Mass/ volume] in Serum or PlasmaOrdered By: Ewa Kim on 02-07-2023 Vitamin D+Metabolites [Mass/Vol] 27.2 ng/mL 30-100 [facility] Comment on above: VITAMIN D STATUS 25( [place])VITAMIN D RANGE (ng/mL) Deficient <20 Insufficient 20 to <30Sufficient 30 to 100Reference: Patricia MF,Arron NC, Elizabeth CARBAJAL, et al. Evaluation,treatment, and prevention of vitamin D deficiency; an Endocrine Society clinical practice guideline. JCEM. 2010; 96(7):1911-30. WBC Auto (Bld) [#/Vol]Ordere d By: Ewa Bullimore on 02-07-2023 WBC (Bld) [#/Vol] 12.4 10*3/uL 4.1-10.5 [facility] pH Auto test strip (U)Ordere d By: Ewa Stevenimore on 02-07-2023 pH (U) 5.5 [pH] 5.0-9.0 [facility] Basophils Auto (Bld) [#/Vol] Ordered By: Cody Black on 01-23-2023 Basophils (Bld) [#/Vol] 0.1 10*3/uL 0.0-0.2 [facility] Basophils/100 WBC Auto (Bld) Ordered By: Cody Black on 01-23-2023 Basophils/100 WBC (Bld) 0.9 % . [facility] Calcium [Mass/volume] in Ser um or PlasmaOrdered By: Cody Black on 01-23-2023 Calcium [Mass/Vol] 9.7 mg/dL 8.6-10.3 [facility] Carbon dioxide, total [Moles /volume] in Serum or PlasmaOrdered By: Cody Black on 01-23-2023 CO2 [Moles/Vol] 15.4 mmol/L 21.0-31.0 [facility] Chloride [Moles/volume] in S russ or PlasmaOrdered By: Cody Black on 01-23-2023 Chloride [Moles/Vol] 104 mmol/L 98-107 [facility] Creatinine [Mass/volume] in Serum or PlasmaOrdered By: Cody Black on 01-23-2023 Creatinine [Mass/Vol] 2.90 mg/dL 0.70-1.30 [facility] Eosinophils Auto (Bld) [#/Vo l]Ordered By: Cody Black on 01-23-2023 Eosinophils (Bld) [#/Vol] 0.3 10*3/uL 0.0-0.45 [facility] Eosinophils/100 WBC Auto (Bl d)Ordered By: Cody Black on 01-23-2023 Eosinophils/100 WBC (Bld) 2.6 % . [facility] Erythrocyte distribution wid th Auto (RBC) [Ratio]Ordered By: Cody Black on 01-23-2023 Erythrocyte distribution width (RBC) [Ratio] 14.1 % 12.0-14.8 [facility] Glucose [Mass/volume] in Ser um or PlasmaOrdered By: Cody Black on 01-23-2023 Glucose [Mass/Vol] 203 mg/dL 70-100 [facility] Comment on above: ADA recommended refe rence rangeRandom Glucose Reference Range is dependent on time and content of last meal. Glucose of more than 200 mg/dL in a nonstressed, ambulatory subject supports the diagnosis of Diabetes Mellitus. Hematocrit Auto (Bld) [Volum e fraction]Ordered By: Cody Black on 01-23-2023 Hematocrit (Bld) [Volume fraction] 39.6 % 38.8-50.0 [facility] Hemoglobin [Mass/volume] in BloodOrdered By: Cody Black on 01-23-2023 Hemoglobin (Bld) [Mass/Vol] 13.4 g/dL 13.0-17.0 [facility] Laboratory - Chemistry and C hemistry - challengeOrdered By: Cody Black on 01-23-2023 CO2 [Moles/Vol] 16.1 mmol/L 24.0-29.0 [facility] HCO3 (Bld) [Moles/Vol] 15.6 mmol/L 23.0-29.0 [facility] Leukocytes [#/volume] correc heather for nucleated erythrocytes in Blood by Automated counOrdered By: Cody Black on 01-23-2023 WBC corrected for nucl RBC Auto (Bld) [#/Vol] 11.7 10*3/uL 4.1-10.5 [facility] Lymphocytes Auto (Bld) [#/Vo l]Ordered By: Cody Black on 01-23-2023 Lymphocytes (Bld) [#/Vol] 3.7 10*3/uL 1.00-4.8 [facility] Lymphocytes/100 WBC Auto (Bl d)Ordered By: Cody Black on 01-23-2023 Lymphocytes/100 WBC (Bld) 31.2 % . [facility] MCH Auto (RBC) [Entitic mass ]Ordered By: Cody Blcak on 01-23-2023 MCH (RBC) [Entitic mass] 29.4 pg 27.5-35.2 [facility] MCHC Auto (RBC) [Mass/Vol]Or dered By: Cody Black on 01-23-2023 MCHC (RBC) [Mass/Vol] 33.9 g/dL 32.5-35.6 [facility] MCV Auto (RBC) [Entitic vol] Ordered By: Cody Black on 01-23-2023 MCV (RBC) [Entitic vol] 86.9 fL 83.5-101 [facility] Monocyte distribution width [Entitic volume] in Blood by AutomatedOrdered By: Cody Black on 01-23-2023 Monocyte distribution width Auto (Bld) [Entitic vol] 20.47 % 0.00-20.00 [facility] Comment on above: For adults in ED, MD W > 20.0 may be associated with a higher risk of sepsis during the first 12 hrs of hospital admission Monocytes Auto (Bld) [#/Vol] Ordered By: Cody Black on 01-23-2023 Monocytes (Bld) [#/Vol] 1.1 10*3/uL 0.0-0.8 [facility] Monocytes/100 WBC Auto (Bld) Ordered By: Cody Black on 01-23-2023 Monocytes/100 WBC (Bld) 9.1 % . [facility] Natriuretic peptide B [Mass/ Vol]Ordered By: Cody Black on 01-23-2023 Natriuretic peptide B (Bld) [Mass/Vol] 43.0 pg/mL 5-100 [facility] Neutrophils Auto (Bld) [#/Vo l]Ordered By: Cody Black on 01-23-2023 Neutrophils (Bld) [#/Vol] 6.6 10*3/uL 1.8-7.7 [facility] Neutrophils/100 WBC Auto (Bl d)Ordered By: Cody Black on 01-23-2023 Neutrophils/100 WBC (Bld) 56.2 % . [facility] No Panel InformationOrdered By: Cody Black on 01-23-2023 Blood Gas Critical Value See comment [facility] Comment on above: Critical Value vicente d on: 01/23/2023 at 17:09 Blood Gas Sample Site Venous [facility] FiO2 21 % [facility] Venous Blood Base Excess -2.8 mmol/L -3.0-3.0 [facility] Venous Blood Oxygen Content 6.2 mmol/L 6.6-9.7 [facility] Venous Blood Oxygen Saturation 74.5 % 73.0-76.0 [facility] Venous Blood Partial Pressure CO2 15.9 mm[Hg] 38.0-50.0 [facility] Venous Blood Partial Pressure O2 32.5 mm[Hg] 35.0-45.0 [facility] Venous Blood pH 7.61 7.32-7.43 [facility] Estimated GFR (CKD-EPI) 23.864 mL/Min [facility] Creatinine Clearance (Chem 40.73 [facility] Nucleated erythrocytes [Pres ence] in Blood by Automated countOrdered By: Cody Black on 01-23-2023 Nucleated RBC Auto Ql (Bld) 0.1 /100{WBC} 0-0.5 [facility] Platelet mean volume Auto (B ld) [Entitic vol]Ordered By: Cody Black on 01-23-2023 Platelet mean volume (Bld) [Entitic vol] 8.4 fL 6.6-10.1 [facility] Platelets Auto (Bld) [#/Vol] Ordered By: Cody Black on 01-23-2023 Platelets (Bld) [#/Vol] 315 10*3/uL 150-450 [facility] Potassium [Moles/volume] in Serum or PlasmaOrdered By: Cody Black on 01-23-2023 Potassium [Moles/Vol] 3.1 mmol/L 3.5-5.1 [facility] RBC Auto (Bld) [#/Vol]Ordere d By: Cody Black on 01-23-2023 RBC (Bld) [#/Vol] 4.56 10*6/uL 3.90-5.60 [facility] Serum or plasma anion gap de terminationOrdered By: Cody Black on 01-23-2023 Anion gap [Moles/Vol] 21.7 mmol/L 6.0-15.0 [facility] Sodium [Moles/volume] in Ser um or PlasmaOrdered By: Cody Black on 01-23-2023 Sodium [Moles/Vol] 138 mmol/L 136-145 [facility] Troponin I.cardiac [Mass/vol ume] in Serum or Plasma by Detection limit <= 0.01 ng/Ordered By: Cody Black on 01-23-2023 Troponin I.cardiac DL <= 0.01 ng/mL [Mass/Vol] 7.3 pg/mL 0.0-20.0 [facility] Urea nitrogen [Mass/volume] in Serum or PlasmaOrdered By: Cody Black on 01-23-2023 Urea nitrogen [Mass/Vol] 42 mg/dL 11-02 [facility] WBC Auto (Bld) [#/Vol]Ordere d By: Cody Black on 01-23-2023 WBC (Bld) [#/Vol] 11.7 10*3/uL 4.1-10.5 [facility] PROF CHEM 8 (BAS METB)on Anion gap [Moles/Vol] 16.6 mmol/L Normal [facility] Comment on above: Performed By: #### C BC #### [facility] [address] [address] [address] Kalie Rodas Calcium [Mass/Vol] 9.2 mg/dL Normal 8.5-10.1 [facility] Comment on above: Performed By: #### C BC #### [facility] [address] [address] [address] Kalie Rodas Chloride [Moles/Vol] 101 mmol/L Normal 98-107 [facility] Comment on above: Performed By: #### C BC #### [facility] [address] [address] [address] Kalie Rodas CO2 [Moles/Vol] 26.0 mmol/L Normal 21.0-32.0 [facility] Comment on above: Performed By: #### C BC #### [facility] [address] [address] [address] Kalie Rodas Creatinine [Mass/Vol] 3.76 mg/dL Critically high 0.70-1.30 [facility] Comment on above: Performed By: #### C BC #### [facility] [address] [address] [address] Kalie Rodas EGFR-AF NEW ZEALANDER 20 mL/min/1.73m2 Critically low >=60 [facility] Comment on above: Performed By: #### C BC #### [facility] [address] [address] [address] Kalie Rodas EGFR-NON AF NEW ZEALANDER 17 mL/min/1.73m2 Critically low >=60 [facility] Comment on above: Performed By: #### C BC #### [facility] [address] [place] [address] Dr. Kalie Rodas Glucose [Mass/Vol] 244 mg/dL Critically high 74-106 [facility] Comment on above: Performed By: #### C BC #### [facility] [address] [place] [address] Dr. Kalie Rodas Potassium [Moles/Vol] 3.6 mmol/L Normal 3.5-5.1 [facility] Comment on above: Performed By: #### C BC #### [facility] [address] [place] [address] Dr. Kalie Rodas Sodium [Moles/Vol] 140 mmol/L Normal 136-145 [facility] Comment on above: Performed By: #### C BC #### [facility] [address] [place] [address] Dr. Kalie Rodas Urea nitrogen [Mass/Vol] 53.0 mg/dL Critically high 7.0-18.0 [facility] Comment on above: Performed By: #### C BC #### [facility] [address] [place] [address] Dr. Kalie Rodas Urea nitrogen/Creatinine [Mass ratio] 14.1 mg/mg Normal [facility] Comment on above: Performed By: #### C BC #### [facility] [address] [place] [address] Dr. Kalie Rodas Cult,Bloodon 07-20-2022 Cult,Blood Specimen Description .BLOOD Special Requests R HAND 10ML Culture NO GROWTH 5 DAYS Report Status FINAL 07/20/2022 Normal [facility] Comment on above: Performed By: #### B MP, CBC #### [address] [address] Yard Switch Operator: Rodrick Jones MD Cult,Blood Specimen Description .BLOOD Culture NO GROWTH 5 DAYS Report Status FINAL 07/20/2022 [facility] Comment on above: Performed By: #### B MP, CBC #### [address] [address] Yard Switch Operator: Rodrick Jones MD Cult,Blood Specimen Description .BLOOD Special Requests RIGHT FOREARM 2ML Culture NO GROWTH 5 DAYS Report Status FINAL 07/20/2022 [facility] Comment on above: Performed By: #### B MP, CBC #### [address] [address] Yard Switch Operator: Rodrick Jones MD Cult,Blood Specimen Description .BLOOD Special Requests RIGHT AC 3ML Culture NO GROWTH 5 DAYS Report Status FINAL 07/20/2022 [facility] Comment on above: Performed By: #### C RP, RENP, CBC, MG #### [facility] [employer] [address] [place] [id number] [employer] Switch Operator: Rodrick Jones MD CBCon 07-19-2022 Erythrocyte distribution width (RBC) [Ratio] 13.4 % Normal 11.8-14.4 [facility] Comment on above: Performed By: #### C RP, RENP, CBC, MG #### [facility] [employer] [address] [place] [address] [employer] Operator: Rodrick Jones MD Hematocrit (Bld) [Volume fraction] 36.4 % Low 40.7-50.3 [facility] Comment on above: Performed By: #### C RP, RENP, CBC, MG #### [facility] [employer] [address] [place] [address] [employer] Operator: Rodrick Jones MD Hemoglobin (Bld) [Mass/Vol] 11.4 g/dL Low 13.0-17.0 [facility] Comment on above: Performed By: #### C RP, RENP, CBC, MG #### [address] [address] [employer] Switch Operator: Rodrick Jones MD MCH (RBC) [Entitic mass] 31.1 pg Normal 25.2-33.5 [facility] Comment on above: Performed By: #### C RP, RENP, CBC, MG #### [address] [address] [employer] Switch Operator: Rodrick Jones MD MCHC (RBC) [Mass/Vol] 31.3 g/dL Normal 28.4-34.8 [facility] Comment on above: Performed By: #### C RP, RENP, CBC, MG #### [facility] [employer] [address] [place] [address] [employer] Operator: Rodrick Jones MD MCV (RBC) [Entitic vol] 99.5 fL Normal 82.6-102.9 [facility] Comment on above: Performed By: #### C RP, RENP, CBC, MG #### [address] [address] Yard Switch Operator: Rodrick Jones MD NRBC Automated 0.0 per 100 WBC Normal 0.0 [facility] Comment on above: Performed By: #### C RP, RENP, CBC, MG #### [facility] [employer] [address] [place] [address] Yard Switch Operator: Rodrick Jones MD Platelet mean volume (Bld) [Entitic vol] 10.7 fL Normal 8.1-13.5 [facility] Comment on above: Performed By: #### C RP, RENP, CBC, MG #### [facility] [address] [place] [address] Yard Switch Operator: Rodrick Jones MD Platelets (Bld) [#/Vol] 235 10*3/uL Normal 138-453 [facility] Comment on above: Performed By: #### C RP, RENP, CBC, MG #### [facility] [place] [address] Yard Switch Operator: Rodrick Jones MD RBC (Bld) [#/Vol] 3.66 10*6/uL Low 4.21-5.77 [facility] Comment on above: Performed By: #### C RP, RENP, CBC, MG #### [facility] [address] [place] [address] Yard Switch Operator: Rodrick Jones MD WBC (Bld) [#/Vol] 11.2 10*3/uL Normal 3.5-11.3 [facility] Comment on above: Performed By: #### C RP, RENP, CBC, MG #### [facility] [address] [place] [address] Yard Switch Operator: Rodrick Jones MD Hemoglobin A1Con 07-19-2022 Glucose [Mass/Vol] 180 mg/dL Normal [facility] Comment on above: Result Comment: The ADA and AACC recommend providing the estimated average glucose result to permit better patient understanding of their HBA1c result. Performed By: #### C RP, RENP, CBC, MG #### [facility] [place] [address] Yard Switch Operator: Rodrick Jones MD HbA1c (Bld) [Mass fraction] 7.9 % High 4.0-6.0 [facility] Comment on above: Performed By: #### C RP, RENP, CBC, MG #### [facility] [address] [place] [address] Yard Switch Operator: Rodrick Jones MD Magnesiumon 07-19-2022 Magnesium [Mass/Vol] 1.8 mg/dL Normal 1.6-2.6 [facility] Comment on above: Performed By: #### C RP, RENP, CBC, MG #### [facility] [address] [place] [address] Yard Switch Operator: Rodrick Jones MD Renal Function Panelon 07-19 Albumin [Mass/Vol] 3.4 g/dL Low 3.5-5.2 [facility] Comment on above: Performed By: #### C RP, RENP, CBC, MG #### [facility] [address] [place] [address] Yard Switch Operator: Rodrick Jones MD Anion gap [Moles/Vol] 18 mmol/L High 9-17 [facility] Comment on above: Performed By: #### C RP, RENP, CBC, MG #### [facility] [address] [place] [address] Yard Switch Operator: Rodrick Jones MD Calcium [Mass/Vol] 9.4 mg/dL Normal 8.6-10.4 [facility] Comment on above: Performed By: #### C RP, RENP, CBC, MG #### [facility] [address] [place] [address] Yard Switch Operator: Rodrick Jones MD Chloride [Moles/Vol] 101 mmol/L Normal 98-107 [facility] Comment on above: Performed By: #### C RP, RENP, CBC, MG #### [facility] [address] [place] [address] Yard Switch Operator: Rodrick Jones MD CO2 [Moles/Vol] 24 mmol/L Normal 20-31 [facility] Comment on above: Performed By: #### C RP, RENP, CBC, MG #### [facility] [address] [place] [address] Yard Switch Operator: Rodrick Jones MD Creatinine [Mass/Vol] 3.74 mg/dL High 0.70-1.20 [facility] Comment on above: Performed By: #### C RP, RENP, CBC, MG #### [facility] [address] [place] [address] Yard Switch Operator: Rodrick Jones MD GFR/1.73 sq M.predicted among non-blacks MDRD (S/P/Bld) [Vol rate/Area] 18 mL/min/{1.73_m2} Low >60 [facility] Comment on above: Result Comment: These results [...] #### C RP, RENP, CBC, MG #### [employer] [address] [place] [address] Yard Switch Operator: Rodrick Jones MD Glucose [Mass/Vol] 197 mg/dL High 70-99 [facility] Comment on above: Performed By: #### C RP, RENP, CBC, MG #### [employer] [address] [place] [address] Yard Switch Operator: Rodrick Jones MD Phosphorus, Inorg. 4.3 mg/dL Normal 2.5-4.5 [facility] Comment on above: Performed By: #### C RP, RENP, CBC, MG #### [facility] [address] [place] [address] Yard Switch Operator: Rodrick Jones MD Potassium [Moles/Vol] 4.7 mmol/L Normal 3.7-5.3 [facility] Comment on above: Performed By: #### C RP, RENP, CBC, MG #### [facility] [address] [place] [address] Yard Switch Operator: Rodrick Jones MD Sodium [Moles/Vol] 143 mmol/L Normal 135-144 [facility] Comment on above: Performed By: #### C RP, RENP, CBC, MG #### [address] [address] Yard Switch Operator: Rodrick Jones MD Urea nitrogen [Mass/Vol] 36 mg/dL High 12-01 [facility] Comment on above: Performed By: #### C RP, RENP, CBC, MG #### [address] [address] Yard Switch Operator: Rodrick Jones MD TSH w/reflex to FT4on 2022 Thyroid Stim. Horm. 1.72 uIU/mL Normal 0.30-5.00 [facility] Comment on above: Performed By: #### C RP, RENP, CBC, MG #### [facility] [employer] [address] [place] [address] Yard Switch Operator: Rodrick Jones MD CBCon 07-18-2022 Erythrocyte distribution width (RBC) [Ratio] 13.2 % Normal 11.8-14.4 [facility] Comment on above: Performed By: #### I FX, URI, C4, PE, FKLLC, C3, PTHNCA #### [facility] [employer] [address] [place] [address] Yard Switch Operator: Rodrick Jones MD Hematocrit (Bld) [Volume fraction] 34.3 % Low 40.7-50.3 [facility] Comment on above: Performed By: #### I FX, URI, C4, PE, FKLLC, C3, PTHNCA #### [address] [address] Yard Switch Operator: Rodrick Jones MD Hemoglobin (Bld) [Mass/Vol] 11.4 g/dL Low 13.0-17.0 [facility] Comment on above: Performed By: #### I FX, URI, C4, PE, FKLLC, C3, PTHNCA #### [address] [address] Yard Switch Operator: Rodrick Jones MD MCH (RBC) [Entitic mass] 30.6 pg Normal 25.2-33.5 [facility] Comment on above: Performed By: #### I FX, URI, C4, PE, FKLLC, C3, PTHNCA #### [place] [address] Yard Switch Operator: Rodrick Jones MD MCHC (RBC) [Mass/Vol] 33.2 g/dL Normal 28.4-34.8 [facility] Comment on above: Performed By: #### I FX, URI, C4, PE, FKLLC, C3, PTHNCA #### [place] [address] Yard Switch Operator: Rodrick Jones MD MCV (RBC) [Entitic vol] 92.2 fL Normal 82.6-102.9 [facility] Comment on above: Performed By: #### I FX, URI, C4, PE, FKLLC, C3, PTHNCA #### [place] [address] Yard Switch Operator: Rodrick Jones MD NRBC Automated 0.0 per 100 WBC Normal 0.0 [facility] Comment on above: Performed By: #### I FX, URI, C4, PE, FKLLC, C3, PTHNCA #### [address] [address] Yard Switch Operator: Rodrick Jones MD Platelet mean volume (Bld) [Entitic vol] 10.8 fL Normal 8.1-13.5 [facility] Comment on above: Performed By: #### I FX, URI, C4, PE, FKLLC, C3, PTHNCA #### [address] [address] Yard Switch Operator: Rodrick Jones MD Platelets (d) [#/Vol] 220 10*3/uL Normal 138-453 [facility] Comment on above: Performed By: #### I FX, URI, C4, PE, FKLLC, C3, PTHNCA #### [address] [address] Yard Switch Operator: Rodrick Jones MD RBC (d) [#/Vol] 3.72 10*6/uL Low 4.21-5.77 [facility] Comment on above: Performed By: #### I FX, URI, C4, PE, FKLLC, C3, PTHNCA #### [address] [address] Yard Switch Operator: Rodrick Jones MD WBC (d) [#/Vol] 11.1 10*3/uL Normal 3.5-11.3 [facility] Comment on above: Performed By: #### I FX, URI, C4, PE, FKLLC, C3, PTHNCA #### [address] [address] Yard Switch Operator: Rodrick Jones MD Magnesiumon 07-18-2022 Magnesium [Mass/Vol] 1.6 mg/dL Normal 1.6-2.6 [facility] Comment on above: Performed By: #### I FX, URI, C4, PE, FKLLC, C3, PTHNCA #### [address] [address] Yard Switch Operator: Rodrick Jones MD Renal Function Panelon 07-18 Albumin [Mass/Vol] 3.6 g/dL Normal 3.5-5.2 [facility] Comment on above: Performed By: #### I FX, URI, C4, PE, FKLLC, C3, PTHNCA #### [address] [address] Yard Switch Operator: Rodrick Jones MD Anion gap [Moles/Vol] 11 mmol/L Normal 9-17 [facility] Comment on above: Performed By: #### I FX, URI, C4, PE, FKLLC, C3, PTHNCA #### [address] [address] Yard Switch Operator: Rodrick Jones MD Calcium [Mass/Vol] 9.4 mg/dL Normal 8.6-10.4 [facility] Comment on above: Performed By: #### I FX, URI, C4, PE, FKLLC, C3, PTHNCA #### [address] [address] Yard Switch Operator: Rodrick Jones MD Chloride [Moles/Vol] 98 mmol/L Normal 98-107 [facility] Comment on above: Performed By: #### I FX, URI, C4, PE, FKLLC, C3, PTHNCA #### [address] [address] Yard Switch Operator: Rodrick Jones MD CO2 [Moles/Vol] 28 mmol/L Normal 20-31 [facility] Comment on above: Performed By: #### I FX, URI, C4, PE, FKLLC, C3, PTHNCA #### [address] [address] Yard Switch Operator: Rodrick Jones MD Creatinine [Mass/Vol] 3.43 mg/dL High 0.70-1.20 [facility] Comment on above: Performed By: #### I FX, URI, C4, PE, FKLLC, C3, PTHNCA #### [address] [address] Yard Switch Operator: Rodrick Jones MD GFR/1.73 sq M.predicted among non-blacks MDRD (S/P/Bld) [Vol rate/Area] 20 mL/min/{1.73_m2} Low >60 [facility] Comment on above: Result Comment: These results [...] URI, C4, PE, FKLLC, C3, PTHNCA #### [address] [address] Yard Switch Operator: Rodrick Jones MD Glucose [Mass/Vol] 205 mg/dL High 70-99 [facility] Comment on above: Performed By: #### I FX, URI, C4, PE, FKLLC, C3, PTHNCA #### [address] [address] Yard Switch Operator: Rodrick Jones MD Phosphorus, Inorg. 3.9 mg/dL Normal 2.5-4.5 [facility] Comment on above: Performed By: #### I FX, URI, C4, PE, FKLLC, C3, PTHNCA #### [address] [address] Yard Switch Operator: Rodrick Jones MD Potassium [Moles/Vol] 4.4 mmol/L Normal 3.7-5.3 [facility] Comment on above: Result Comment: SPEC IMEN SLIGHTLY HEMOLYZED, RESULTS MAY BE ADVERSELY AFFECTED. Performed By: #### I FX, URI, C4, PE, FKLLC, C3, PTHNCA #### [address] [address] Yard Switch Operator: Rodrick Jones MD Sodium [Moles/Vol] 137 mmol/L Normal 135-144 [facility] Comment on above: Performed By: #### I FX, URI, C4, PE, FKLLC, C3, PTHNCA #### [address] [address] Yard Switch Operator: Rodrick Jones MD Urea nitrogen [Mass/Vol] 30 mg/dL High 8-23 [facility] Comment on above: Performed By: #### I FX, URI, C4, PE, FKLLC, C3, PTHNCA #### [address] [address] Yard Switch Operator: Rodrick Jones MD CBCon 07-17-2022 Erythrocyte distribution width (RBC) [Ratio] 13.2 % Normal 11.8-14.4 [facility] Comment on above: Performed By: #### B MP, CBC #### [address] [address] Yard Switch Operator: Rodrick Jones MD Hematocrit (Bld) [Volume fraction] 34.2 % Low 40.7-50.3 [facility] Comment on above: Performed By: #### B MP, CBC #### [address] [address] Yard Switch Operator: Rodrick Jones MD Hemoglobin (Bld) [Mass/Vol] 11.0 g/dL Low 13.0-17.0 [facility] Comment on above: Performed By: #### B MP, CBC #### [address] [address] Yard Switch Operator: Rodrick Jones MD MCH (RBC) [Entitic mass] 30.6 pg Normal 25.2-33.5 [facility] Comment on above: Performed By: #### B MP, CBC #### [address] [place] [address] Yard Switch Operator: Rodrick Jones MD MCHC (RBC) [Mass/Vol] 32.2 g/dL Normal 28.4-34.8 [facility] Comment on above: Performed By: #### B MP, CBC #### [address] [address] Yard Switch Operator: Rodrick Jones MD MCV (RBC) [Entitic vol] 95.0 fL Normal 82.6-102.9 [facility] Comment on above: Performed By: #### B MP, CBC #### [address] [address] Yard Switch Operator: Rodrick Jones MD NRBC Automated 0.0 per 100 WBC Normal 0.0 [facility] Comment on above: Performed By: #### B MP, CBC #### [address] [address] Yard Switch Operator: Rodrick Jones MD Platelet mean volume (Bld) [Entitic vol] 10.9 fL Normal 8.1-13.5 [facility] Comment on above: Performed By: #### B MP, CBC #### [address] [address] Yard Switch Operator: Rodrick Jones MD Platelets (Bld) [#/Vol] 211 10*3/uL Normal 138-453 [facility] Comment on above: Performed By: #### B MP, CBC #### [address] [address] Yard Switch Operator: Rodrick Jones MD RBC (Bld) [#/Vol] 3.60 10*6/uL Low 4.21-5.77 [facility] Comment on above: Performed By: #### B MP, CBC #### [address] [address] Yard Switch Operator: Rodrick Jones MD WBC (Bld) [#/Vol] 9.7 10*3/uL Normal 3.5-11.3 [facility] Comment on above: Performed By: #### B MP, CBC #### [facility] [address] [place] [address] Yard Switch Operator: Rodrick Jones MD Magnesiumon 07-17-2022 Magnesium [Mass/Vol] 1.6 mg/dL Normal 1.6-2.6 [facility] Comment on above: Performed By: #### B MP, CBC #### [facility] [employer] [address] [place] [address] Yard Switch Operator: Rodrick Jones MD Renal Function Panelon 07-174 Albumin [Mass/Vol] 3.7 g/dL Normal 3.5-5.2 [facility] Comment on above: Performed By: #### B CECY, CBC #### [facility] [employer] [address] [place] [address] Yard Switch Operator: Rodrick Jones MD Anion gap [Moles/Vol] 13 mmol/L Normal 9-17 [facility] Comment on above: Performed By: #### B MP, CBC #### [facility] [address] [place] [address] Yard Switch Operator: Rodrick Jones MD Calcium [Mass/Vol] 9.1 mg/dL Normal 8.6-10.4 [facility] Comment on above: Performed By: #### B MP, CBC #### [facility] [address] [place] [address] Yard Switch Operator: Rodrick Jones MD Chloride [Moles/Vol] 96 mmol/L Low 98-107 [facility] Comment on above: Performed By: #### B MP, CBC #### [facility] [address] [place] [address] Yard Switch Operator: Rodrick Jones MD CO2 [Moles/Vol] 28 mmol/L Normal 20-31 [facility] Comment on above: Performed By: #### B MP, CBC #### [facility] [address] [place] [address] Yard Switch Operator: Rodrick Jones MD Creatinine [Mass/Vol] 2.91 mg/dL High 0.70-1.20 [facility] Comment on above: Performed By: #### B MP, CBC #### [address] [address] Yard Switch Operator: Rodrick Jones MD GFR/1.73 sq M.predicted among non-blacks MDRD (S/P/Bld) [Vol rate/Area] 24 mL/min/{1.73_m2} Low >60 [facility] Comment on above: Result Comment: These results [...] Performed By: #### B MP, CBC #### [address] [address] Yard Switch Operator: Rodrick Jones MD Glucose [Mass/Vol] 240 mg/dL High 70-99 [facility] Comment on above: Performed By: #### B MP, CBC #### [address] [address] Yard Switch Operator: Rodrick Jones MD Phosphorus, Inorg. 3.4 mg/dL Normal 2.5-4.5 [facility] Comment on above: Performed By: #### B MP, CBC #### [facility] [address] [place] [address] Yard Switch Operator: Rodrick Jones MD Potassium [Moles/Vol] 3.9 mmol/L Normal 3.7-5.3 [facility] Comment on above: Performed By: #### B MP, CBC #### [address] [address] Yard Switch Operator: Rodrick Jones MD Sodium [Moles/Vol] 137 mmol/L Normal 135-144 [facility] Comment on above: Performed By: #### B MP, CBC #### [address] [address] Yard Switch Operator: Rodrick Jones MD Urea nitrogen [Mass/Vol] 25 mg/dL High 8-23 [facility] Comment on above: Performed By: #### B MP, CBC #### [address] [address] Yard Switch Operator: Rodrick Jones MD CBCon 07-16-2022 Erythrocyte distribution width (RBC) [Ratio] 13.4 % Normal 11.8-14.4 [facility] Comment on above: Performed By: #### B MP, CBC #### [address] [address] Yard Switch Operator: Rodrick Jones MD Hematocrit (Bld) [Volume fraction] 36.2 % Low 40.7-50.3 [facility] Comment on above: Performed By: #### B MP, CBC #### [address] [address] Yard Switch Operator: Rodrick Jones MD Hemoglobin (Bld) [Mass/Vol] 11.3 g/dL Low 13.0-17.0 [facility] Comment on above: Performed By: #### B MP, CBC #### [address] [address] Yard Switch Operator: Rodrick Jones MD MCH (RBC) [Entitic mass] 31.1 pg Normal 25.2-33.5 [facility] Comment on above: Performed By: #### B MP, CBC #### [address] [address] Yard Switch Operator: Rodrick Jones MD MCHC (RBC) [Mass/Vol] 31.2 g/dL Normal 28.4-34.8 [facility] Comment on above: Performed By: #### B MP, CBC #### [address] [address] Yard Switch Operator: Rodrick Jones MD MCV (RBC) [Entitic vol] 99.7 fL Normal 82.6-102.9 [facility] Comment on above: Performed By: #### B MP, CBC #### [address] [address] Yard Switch Operator: Rodrick Jones MD NRBC Automated 0.0 per 100 WBC Normal 0.0 [facility] Comment on above: Performed By: #### B MP, CBC #### [address] [address] Yard Switch Operator: Rodrick Jones MD Platelet mean volume (Bld) [Entitic vol] 11.1 fL Normal 8.1-13.5 [facility] Comment on above: Performed By: #### B MP, CBC #### [address] [address] Yard Switch Operator: Rodrick Jones MD Platelets (Bld) [#/Vol] 202 10*3/uL Normal 138-453 [facility] Comment on above: Performed By: #### B MP, CBC #### [address] [address] Yard Switch Operator: Rodrick Jones MD RBC (Bld) [#/Vol] 3.63 10*6/uL Low 4.21-5.77 [facility] Comment on above: Performed By: #### B MP, CBC #### [address] [address] Yard Switch Operator: Rodrick Jones MD WBC (Bld) [#/Vol] 9.0 10*3/uL Normal 3.5-11.3 [facility] Comment on above: Performed By: #### B MP, CBC #### [address] [address] Yard Switch Operator: Rodrick Jones MD Cult,Urineon 07-16-2022 Cult,Urine Specimen Description .URINE Culture Nida albicans/dubliniensis 50 to 100,000 CFU/ML Report Status FINAL 07/16/2022 Normal [facility] Comment on above: Performed By: #### B CECY, CBC #### [address] [address] Yard Switch Operator: Rodrick Jones MD Magnesiumon 07-16-2022 Magnesium [Mass/Vol] 2.0 mg/dL Normal 1.6-2.6 [facility] Comment on above: Performed By: #### B CECY, CBC #### [address] [address] Yard Switch Operator: Rodrick Jones MD Renal Function Panelon 07-166 Albumin [Mass/Vol] 3.1 g/dL Low 3.5-5.2 [facility] Comment on above: Performed By: #### B CECY, CBC #### [address] [address] Yard Switch Operator: Rodrick Jones MD Anion gap [Moles/Vol] 15 mmol/L Normal 9-17 [facility] Comment on above: Performed By: #### B MP, CBC #### [address] [address] Yard Switch Operator: Rodrick Jones MD Calcium [Mass/Vol] 9.2 mg/dL Normal 8.6-10.4 [facility] Comment on above: Performed By: #### B MP, CBC #### [facility] [place] [address] Yard Switch Operator: Rodrick Jones MD Chloride [Moles/Vol] 102 mmol/L Normal 98-107 [facility] Comment on above: Performed By: #### B MP, CBC #### [facility] [address] [place] [address] Yard Switch Operator: Rodrick Jones MD CO2 [Moles/Vol] 19 mmol/L Low 20-31 [facility] Comment on above: Performed By: #### B MP, CBC #### [facility] [address] [place] [address] Yard Switch Operator: Rodrick Jones MD Creatinine [Mass/Vol] 3.48 mg/dL High 0.70-1.20 [facility] Comment on above: Performed By: #### B MP, CBC #### [address] [address] Yard Switch Operator: Rodrick Jones MD GFR/1.73 sq M.predicted among non-blacks MDRD (S/P/Bld) [Vol rate/Area] 19 mL/min/{1.73_m2} Low >60 [facility] Comment on above: Result Comment: These results [...] Performed By: #### B MP, CBC #### [facility] [employer] [address] [place] [address] Yard Switch Operator: Rodrick Jones MD Glucose [Mass/Vol] 207 mg/dL High 70-99 [facility] Comment on above: Performed By: #### B MP, CBC #### [facility] [address] [place] [address] Yard Switch Operator: Rodrick Jones MD Phosphorus, Inorg. 5.4 mg/dL High 2.5-4.5 [facility] Comment on above: Performed By: #### B MP, CBC #### [facility] [address] [place] [address] Yard Switch Operator: Rodrick Jones MD Potassium [Moles/Vol] 4.8 mmol/L Normal 3.7-5.3 [facility] Comment on above: Result Comment: SPEC IMEN MODERATELY HEMOLYZED, RESULTS MAY BE ADVERSELY AFFECTED ACCEPTED PER RN STEPH Performed By: #### B MP, CBC #### [facility] [address] [place] [address] Yard Switch Operator: Rodrick Jones MD Sodium [Moles/Vol] 136 mmol/L Normal 135-144 [facility] Comment on above: Performed By: #### B MP, CBC #### [facility] [address] [place] [address] Yard Switch Operator: Rodrick Jones MD Urea nitrogen [Mass/Vol] 35 mg/dL High 8-23 [facility] Comment on above: Performed By: #### B MP, CBC #### [facility] [address] [place] [address] Yard Switch Operator: Rodrick Jones MD Brain Natri. Peptideon 07-15 Natriuretic peptide B (Bld) [Mass/Vol] 368 pg/mL High <300 [facility] Comment on above: Result Comment: An age-independent cutoff point of 300 pg/ml has a 98% negative predictive value excluding acute heart failure. Performed By: #### B MP, CBC #### [facility] [address] [place] [address] Yard Switch Operator: Rodrick Jones MD CT ABDOMEN PELVIS WO [...] rectal stool burden. PELVIS: No acute findings. PERITONEUM/RETROPERIT ONEUM: No lymphadenopathy is noted. No free air [...] Gillian Watters MD 07/15/22 Final result Normal [facility] POINT OF CARE GLUCOSEon 04-0 Glucose [Mass/Vol] 158 mg/dL Critically high 74-106 [facility] Comment on above: Performed By: #### C MP, TSH #### [facility] [address] [address] [address] Kalie Rodas Renal Function Panelon 07-15 Albumin [Mass/Vol] 3.4 g/dL Low 3.5-5.2 [facility] Comment on above: Performed By: #### B MP, CBC #### [facility] [address] [place] [address] Yard Switch Operator: Rodrick Jones MD Anion gap [Moles/Vol] 20 mmol/L High 9-17 [facility] Comment on above: Performed By: #### B MP, CBC #### [facility] [address] [place] [address] Yard Switch Operator: Rodrick Jones MD Calcium [Mass/Vol] 9.2 mg/dL Normal 8.6-10.4 [facility] Comment on above: Performed By: #### B MP, CBC #### [facility] [employer] [address] [place] [address] Yard Switch Operator: Rodrick Jones MD Chloride [Moles/Vol] 94 mmol/L Low 98-107 [facility] Comment on above: Performed By: #### B MP, CBC #### [facility] [employer] [address] [place] [address] Yard Switch Operator: Rodrick Jones MD CO2 [Moles/Vol] 18 mmol/L Low 20-31 [facility] Comment on above: Performed By: #### B MP, CBC #### [facility] [employer] [address] [place] [address] Yard Switch Operator: Rodrick Jones MD Creatinine [Mass/Vol] 2.93 mg/dL High 0.70-1.20 [facility] Comment on above: Performed By: #### B MP, CBC #### [address] [address] Yard Switch Operator: Rodrick Jones MD GFR/1.73 sq M.predicted among non-blacks MDRD (S/P/Bld) [Vol rate/Area] 24 mL/min/{1.73_m2} Low >60 [facility] Comment on above: Result Comment: These results [...] Performed By: #### B MP, CBC #### [facility] [address] [place] [address] Yard Switch Operator: Rodrick Jones MD Glucose [Mass/Vol] 159 mg/dL High 70-99 [facility] Comment on above: Performed By: #### B MP, CBC #### [facility] [address] [place] [address] Yard Switch Operator: Rodrick Jones MD Phosphorus, Inorg. 4.2 mg/dL Normal 2.5-4.5 [facility] Comment on above: Performed By: #### B MP, CBC #### [facility] [address] [place] [address] Yard Switch Operator: Rodrick Jones MD Potassium [Moles/Vol] 3.5 mmol/L Low 3.7-5.3 [facility] Comment on above: Performed By: #### B MP, CBC #### [facility] [address] [place] [address] Yard Switch Operator: Rodrick Jones MD Sodium [Moles/Vol] 132 mmol/L Low 135-144 [facility] Comment on above: Performed By: #### B MP, CBC #### [facility] [employer] [address] [place] [address] [employer] Operator: Rodrick Jones MD Urea nitrogen [Mass/Vol] 30 mg/dL High 8-23 [facility] Comment on above: Performed By: #### B MP, CBC #### [facility] [employer] [address] [place] [address] [id number] [employer] Switch Operator: Rodrick Jones MD UA w/Reflex Cultureon 2022 Bilirubin, SemiQt,Ur Negative Normal NEG [facility] Comment on above: Performed By: #### B MP, CBC #### [facility] [address] [place] [address] [employer] Switch Operator: Rodrick Jones MD Blood, Urine LARGE Abnormal NEG [facility] Comment on above: Performed By: #### B MP, CBC #### [facility] [address] [place] [address] Yard Switch Operator: Rodrick Jones MD Clarity (U) Cloudy Abnormal CLEAR [facility] Comment on above: Performed By: #### B MP, CBC #### [address] [address] Yard Switch Operator: Rodrick Jones MD Color (U) Yellow Normal YEL [facility] Comment on above: Performed By: #### B MP, CBC #### [facility] [address] [place] [address] [employer] Switch Operator: Rodrick Jones MD Glucose Ql (U) Negative Normal NEG [facility] Comment on above: Performed By: #### B MP, CBC #### [address] [address] Yard Switch Operator: Rodrick Jones MD Ketones Ql (U) Negative Normal NEG [facility] Comment on above: Performed By: #### B MP, CBC #### [facility] [address] [place] [address] Yard Switch Operator: Rodrick Jones MD Leukocyte esterase Test strip Ql (U) SMALL Abnormal NEG [facility] Comment on above: Performed By: #### B MP, CBC #### [facility] [address] [place] [address] Yard Switch Operator: Rodrick Jones MD Nitrite,Ur Negative Normal NEG [facility] Comment on above: Performed By: #### B MP, CBC #### [address] [address] Yard Switch Operator: Rodrick Jones MD PH,Ur 5.0 Normal 5.0-8.0 [facility] Comment on above: Performed By: #### B MP, CBC #### [address] [address] Yard Switch Operator: Rodrick Jones MD Protein Ql (U) 2+ Abnormal NEG [facility] Comment on above: Performed By: #### B MP, CBC #### [address] [address] Yard Switch Operator: Rodrick Jones MD Spec. [place],Ur 1.014 Normal 1.005-1.030 [facility] Comment on above: Performed By: #### B MP, CBC #### [address] [address] Yard Switch Operator: Rodrick Jones MD Urobilinogen,Ur Normal Normal NORM [facility] Comment on above: Performed By: #### B MP, CBC #### [address] [address] Yard Switch Operator: Rodrick Jones MD Urinalysis,Microon 3 Casts 5 TO 10 Normal 0-2 [facility] Comment on above: Result Comment: HYAL INE Performed By: #### B MP, CBC #### [address] [address] Yard Switch Operator: Rodrick Jones MD Epithelial cells LM Ql (Urine sed) 2 TO 5 Normal 0-5 [facility] Comment on above: Performed By: #### B MP, CBC #### [address] [address] Yard Switch Operator: Rodrick Jones MD Urine RBC's 10 TO 20 Normal 0-2 [facility] Comment on above: Performed By: #### B MP, CBC #### [facility] [address] [place], [place] [phone] Yard Switch Operator: Rodrick Jones MD Urine WBC's 10 TO 20 Normal 0-5 [facility] Comment on above: Performed By: #### B MP, CBC #### [facility] [address] [place], [place] [phone] Yard Switch Operator: Rodrick Jones MD Yeast MODERATE Abnormal NONE [facility] Comment on above: Performed By: #### B MP, CBC #### [facility] [address] [place], [place] [phone] Yard Switch Operator: Rodrick Jones MD ACETONE SERUMon 8 ACETONE Negative Normal NEGATIVE [facility] Comment on above: Performed By: #### C VDTBH #### [facility] [address] [place] [address] Dr. Kalie Rodas CARDIAC STEVEN 3-6on 3 CK [Catalytic activity/Vol] 91 U/L Normal 39-308 [facility] Comment on above: Performed By: #### M ALBCRL #### [facility] [address] [address] [address] Kalie Rodas CK.MB [Mass/Vol] 1.78 ng/mL Normal <=3.60 [facility] Comment on above: Performed By: #### M ALBCRL #### [facility] [address] [address] [address] Kalie Rodas HSTROP 7.2 pg/mL Normal 4.0-76.1 [facility] Comment on above: Result Comment: CUT- OFF POINTS HAVE BEEN ESTABLISHED BASED ON THE FOURTH UNIVERSAL DEFINITIONS OF MYOCARDIAL INFARCTION. THE UPPER REFERENCE LIMIT (URL) OF TROPONIN, DEFINED THE 99TH PERCENTILE OF cTnI DISTRIBUTION IN A REFERENCE POPULATION, HAS BEEN CONFIRMED THE DECISION THRESHOLD FOR PR DIAGNOSIS. Performed By: #### M ALBCRL #### [facility] [address] [address] [address] Kalie Rodas CBC AUTO DIFFon 07-14-2022 BASO # 0.1 103/ul Normal 0.0-0.1 [facility] Comment on above: Performed By: #### C BC #### [facility] [address] [address] [address] Kalie Rodas Basophils/100 WBC (Bld) 0.7 % Normal 0.2-2.0 [facility] Comment on above: Performed By: #### C BC #### [facility] [address] [place] [address] Dr. Kalie Rodas EO # 0.4 103/ul Normal 0.0-0.7 [facility] Comment on above: Performed By: #### C BC #### [facility] [address] [place] [address] Dr. Kalie Rodas Eosinophils/100 WBC (Bld) 3.7 % Normal 0.9-7.0 [facility] Comment on above: Performed By: #### C BC #### [facility] [address] [place] [address] Dr. Kalie Rodas Erythrocyte distribution width (RBC) [Ratio] 13.2 % Normal 11.0-15.0 [facility] Comment on above: Performed By: #### C BC #### [facility] [address] [place] [address] Dr. Kalie Rodas Hematocrit (Bld) [Volume fraction] 34.5 % Critically low 42.0-54.0 [facility] Comment on above: Performed By: #### C BC #### [facility] [address] [place] [address] Dr. Kalie Rodas Hemoglobin (Bld) [Mass/Vol] 11.5 g/dL Critically low 14.0-18.0 [facility] Comment on above: Performed By: #### C BC #### [facility] [address] [place] [address] Dr. Kalie Rodas IG # 0.09 10e3/ul Critically high 0.00-0.03 [facility] Comment on above: Performed By: #### C BC #### [facility] [address] [place] [address] Dr. Kalie Rodas IG % 1.0 % Critically high 0.0-0.5 [facility] Comment on above: Performed By: #### C BC #### [facility] [address] [place] [address] Dr. Kalie Rodas LYMPH # 2.8 103/ul Normal 1.2-3.8 [facility] Comment on above: Performed By: #### C BC #### [facility] [address] [place] [address] Dr. Kalie Rodas Lymphocytes/100 WBC (Bld) 29.8 % Normal 20.5-60.0 [facility] Comment on above: Performed By: #### C BC #### [facility] [address] [place] [address] Dr. Kalie Rodas MANUAL DIFF REQ NO Normal [facility] Comment on above: Performed By: #### C BC #### [facility] [address] [place] [address] Dr. Kalie Rodas MCH (RBC) [Entitic mass] 30.3 pg Normal 25.9-34.0 [facility] Comment on above: Performed By: #### C BC #### [facility] [address] [place] [address] Dr. Kalie Rodas MCHC (RBC) [Mass/Vol] 33.3 g/dL Normal 29.9-35.2 [facility] Comment on above: Performed By: #### C BC #### [facility] [address] [place] [address] Dr. Kalie Rodas MCV (RBC) [Entitic vol] 91.0 fL Normal 80.0-94.0 [facility] Comment on above: Performed By: #### C BC #### [facility] [address] [place] [address] Dr. Kalie Rodas MONO # 0.9 103/ul Critically high 0.3-0.8 [facility] Comment on above: Performed By: #### C BC #### [facility] [address] [place] [address] Dr. Kalie Rodas Monocytes/100 WBC (Bld) 9.1 % Normal 1.7-12.0 [facility] Comment on above: Performed By: #### C BC #### [facility] [address] [place] [address] Dr. Kalie Rodas NEUT # 5.2 103/ul Normal 1.4-6.5 [facility] Comment on above: Performed By: #### C BC #### [facility] [address] [place] [address] Dr. Kalie Rodas Neutrophils/100 WBC (Bld) 55.7 % Normal 43.0-75.0 [facility] Comment on above: Performed By: #### C BC #### [facility] [address] [place] [address] Dr. Kalie Rodas Platelet mean volume (Bld) [Entitic vol] 10.5 fL Normal 9.5-13.5 [facility] Comment on above: Performed By: #### C BC #### [facility] [address] [place] [address] Dr. Kalie Rodas PLT 221 103/ul Normal 150-450 [facility] Comment on above: Performed By: #### C BC #### [facility] [address] [place] [address] Dr. Kalie Rodas RBC 3.79 106/ul Critically low 4.70-6.10 [facility] Comment on above: Performed By: #### C BC #### [facility] [address] [place] [address] Dr. Kalie Rodas WBC 9.4 103/ul Normal 4.0-11.0 [facility] Comment on above: Performed By: #### C BC #### [facility] [address] [place], [place] [phone] Dr. Kalie Rodas CT HEAD WO CONon [...] No acute intracranial abnormality. Electronically authenticated by: [employer] Date: 2022-07-14 18:48 Normal [facility] Covid-19 PCR (CVDTBH)on SARS-CoV-2 (COVID-19) RNA BENTLEY+probe Ql (Unsp spec) Not detected Normal NOT DETECTED [facility] Comment on above: Result Comment: When diagnostic [...] for this test is supported by the [employer] of [employer] and Human Service's declaration that [...] longer be used). Performed By: #### C VDTBH #### [facility] [address] [place] [address] Dr. Kalie Rodas ER URINE PROFILEon 3 Bilirubin Ql (U) Negative Normal NEGATIVE [facility] Comment on above: Performed By: #### C BC #### [facility] [phone] Kalie oRdas Clarity (U) CLOUDY Abnormal CLEAR [facility] Comment on above: Performed By: #### C BC #### [facility] [address] [place] [address] Dr. Kalie Rodas Color (U) LT. YELLOW Normal YELLOW [facility] Comment on above: Performed By: #### C BC #### [facility] [address] [place] [address] Dr. Kalie Rodas ERUAHD A micrscopic examination will be performed if indicated. Normal [facility] Comment on above: Performed By: #### C BC #### [facility] [address] [place] [address] Dr. Kalie Rodas Glucose Ql (U) Negative Normal NEGATIVE [facility] Comment on above: Performed By: #### C BC #### [facility] [address] [place] [address] Dr. Kalie Rodas Hemoglobin Ql (U) LARGE Abnormal NEGATIVE [facility] Comment on above: Performed By: #### C BC #### [facility] [address] [place] [address] Dr. Kalie Rodas Ketones Ql (U) Negative Normal NEGATIVE [facility] Comment on above: Performed By: #### C BC #### [facility] [address] [place] [address] Dr. Kalie Rodas LEUKOCYTES MODERATE Abnormal NEGATIVE [facility] Comment on above: Performed By: #### C BC #### [facility] [address] [place] [address] Dr. Kalie Rodas Nitrite Ql (U) Negative Normal NEGATIVE [facility] Comment on above: Performed By: #### C BC #### [facility] [address] [place] [address] Dr. Kalie Rodas pH (U) 5.5 [pH] Normal 5-9 [facility] Comment on above: Performed By: #### C BC #### [facility] [address] [place] [address] Dr. Kalie Rodas Protein (U) [Mass/Vol] 100 mg/dL Abnormal NEGAT HARISH/ TRACE [facility] Comment on above: Performed By: #### C BC #### [facility] [address] [place] [address] Dr. Klaie Rodas SPEC GRAVITY 1.025 Normal 1.005-<=1.025 [facility] Comment on above: Performed By: #### C BC #### [facility] [address] [address] [address] Kalie Rodas UR MICRO IND INDICATED Normal [facility] Comment on above: Performed By: #### C BC #### [facility] [address] [place] [address] Dr. Kalie Rodas Urobilinogen Qn (U) 0.2 {Naresh'U}/dL Normal 0.2 - 1. 0 [facility] Comment on above: Performed By: #### C BC #### [facility] [address] [place] [address] Dr. Kalie Rodas LACTATE/LACTIC ACIDon 2022 Lactate [Moles/Vol] 1.5 mmol/L Normal 0.4-2.0 [facility] Comment on above: Performed By: #### L ACT #### [facility] [address] [place] [address] Dr. Kalie Rodas Lactate [Moles/Vol] 2.2 mmol/L Critically high 0.4-2.0 [facility] Comment on above: Performed By: #### C MP, TSH #### [facility] [address] [place] [address] Dr. Kalie Rodas POINT OF CARE GLUCOSEon Glucose [Mass/Vol] 189 mg/dL Critically high 74-106 [facility] Comment on above: Performed By: #### M ALBCRL #### [facility] [address] [place] [address] Dr. Kalie Rodas PROF 14(COMP METB)on 023 Albumin [Mass/Vol] 3.2 g/dL Critically low 3.4-5.0 [facility] Comment on above: Performed By: #### C BC #### [facility] [address] [place] [address] Dr. Kalie Rodas Albumin/Globulin [Mass ratio] 0.6 {ratio} Normal [facility] Comment on above: Performed By: #### C BC #### [facility] [address] [place] [address] Dr. Kalie Rodas ALP [Catalytic activity/Vol] 124 U/L Critically high 46-116 [facility] Comment on above: Performed By: #### C BC #### [facility] [address] [address] [address] Kalie Rodas ALT [Catalytic activity/Vol] 31 U/L Normal 16-63 [facility] Comment on above: Performed By: #### C BC #### [facility] [address] [address] [address] Kalie Rodas Anion gap [Moles/Vol] 14.3 mmol/L Normal [facility] Comment on above: Performed By: #### C BC #### [facility] [address] [place] [address] Dr. Kalie Rodas AST [Catalytic activity/Vol] 30 U/L Normal 15-37 [facility] Comment on above: Performed By: #### C BC #### [facility] [address] [place] [address] Dr. Kalie Rodas Bilirubin [Mass/Vol] 0.6 mg/dL Normal 0.2-1.0 [facility] Comment on above: Performed By: #### C BC #### [facility] [address] [address] [address] Kalie Rodas Calcium [Mass/Vol] 8.9 mg/dL Normal 8.5-10.1 [facility] Comment on above: Performed By: #### C BC #### [facility] [address] [address] [address] Kalie Rodas Chloride [Moles/Vol] 98 mmol/L Normal 98-107 [facility] Comment on above: Performed By: #### C BC #### [facility] [address] [place] [address] Dr. Kalie Rodas CO2 [Moles/Vol] 25.2 mmol/L Normal 21.0-32.0 [facility] Comment on above: Performed By: #### C BC #### [facility] [address] [address] [address] Kalie Rodas Creatinine [Mass/Vol] 2.52 mg/dL Critically high 0.70-1.30 [facility] Comment on above: Performed By: #### C BC #### [facility] [address] [address] [address] Kalie Rodas EGFR-AF NEW ZEALANDER 32 mL/min/1.73m2 Critically low >=60 [facility] Comment on above: Performed By: #### C BC #### [facility] [address] [address] [address] Kalie Rodas EGFR-NON AF NEW ZEALANDER 26 mL/min/1.73m2 Critically low >=60 [facility] Comment on above: Performed By: #### C BC #### [facility] [address] [address] [address] Kalie Rodas Globulin (S) [Mass/Vol] 5.1 g/dL Normal [facility] Comment on above: Performed By: #### C BC #### [facility] [address] [address] [address] Kalie Rodas Glucose [Mass/Vol] 167 mg/dL Critically high 74-106 [facility] Comment on above: Performed By: #### C BC #### [facility] [address] [address] [address] Kalie Rdoas Potassium [Moles/Vol] 3.5 mmol/L Normal 3.5-5.1 [facility] Comment on above: Performed By: #### C BC #### [facility] [address] [address] [address] Kalie Rodas Protein [Mass/Vol] 8.3 g/dL Critically high 6.4-8.2 [facility] Comment on above: Performed By: #### C BC #### [facility] [address] [address] [address] Kalie Rodas Sodium [Moles/Vol] 134 mmol/L Critically low 136-145 [facility] Comment on above: Performed By: #### C BC #### [facility] [address] [place] [address] Dr. Kalie Rodas Urea nitrogen [Mass/Vol] 28.0 mg/dL Critically high 7.0-18.0 [facility] Comment on above: Performed By: #### C BC #### [facility] [address] [place] [address] Dr. Kalie Rodas Urea nitrogen/Creatinine [Mass ratio] 11.1 mg/mg Normal [facility] Comment on above: Performed By: #### C BC #### [facility] [address] [place] [address] Dr. Kalie Rodas PROTIMEon 07-14-2022 INR Coag (PPP) [Relative time] 1.03 {INR} Normal [facility] Comment on above: Performed By: #### M ALBCRL #### [facility] [address] [place] [address] Dr. Kalie Rodas INR GUIDELINES SEE BELOW Normal [facility] Comment on above: Result Comment: DENNIS RED INR: 2.0 - 3.0 CONDITIONS NOT LISTED BELOW 2.5 - 3.5 FOR PROSTHETIC HEART VALVE REPLACEMENT 2.5 - 3.5 RECURRENT THROMBOSIS Performed By: #### M ALBCRL #### [facility] [address] [place] [address] Dr. Kalie Rodas PT Coag (PPP) [Time] 10.9 s Normal 9.0-11.6 [facility] Comment on above: Performed By: #### M ALBCRL #### [facility] [address] [place] [address] Dr. Kalie Rodas PTTon 07-14-2022 aPTT Coag (Bld) [Time] 43.5 s Critically high 22.3-36. 2 [facility] Comment on above: Performed By: #### M ALBCRL #### [facility] [address] [place] [address] Dr. Kalie Rodas TROPONIN, HIGH SENSITIVITYon 07-14-2022 HSTROP 6.7 pg/mL Normal 4.0-76.1 [facility] Comment on above: Result Comment: CUT- OFF POINTS HAVE BEEN ESTABLISHED BASED ON THE FOURTH UNIVERSAL DEFINITIONS OF MYOCARDIAL INFARCTION. THE UPPER REFERENCE LIMIT (URL) OF TROPONIN, DEFINED THE 99TH PERCENTILE OF cTnI DISTRIBUTION IN A REFERENCE POPULATION, HAS BEEN CONFIRMED THE DECISION THRESHOLD FOR PR DIAGNOSIS. Performed By: #### C BC #### [facility] [address] [place] [address] Dr. Kalie Rodas TSHon 07-14-2022 TSH 1.760 uIU/mL Normal 0.358-3.740 [facility] Comment on above: Performed By: #### C MP, HSTROPN, TSH #### [facility] [address] [place] [address] Dr. Kalie Rodas URINE MICROSCOPIC ONLYon BACTERIA TRACE Abnormal NONE SEEN [facility] Comment on above: Performed By: #### C BC #### [facility] [address] [place] [address] Dr. Kalie Rodas Bacteria identified Cx Nom (U) INDICATED Normal [facility] Comment on above: Performed By: #### C BC #### [facility] [address] [place] [address] Dr. Kalie Rodas CAST NONE SEEN Normal NONE SEEN [facility] Comment on above: Performed By: #### C BC #### [facility] [address] [place] [address] Dr. Kalie Rodas Crystals LM Nom (Urine sed) NONE SEEN Normal NONE SEEN [facility] Comment on above: Performed By: #### C BC #### [facility] [address] [place] [address] Dr. Kalie Rodas Epithelial cells LM Ql (Urine sed) MANY Abnormal NONE SEEN /RARE [facility] Comment on above: Performed By: #### C BC #### [facility] [address] [place] [address] Dr. Kalie Rodas MUCOUS NONE SEEN Normal NONE SEEN [facility] Comment on above: Performed By: #### C BC #### [facility] [address] [place] [address] Dr. Kalie Rodas RBC 0-2 Normal 0-2 [facility] Comment on above: Performed By: #### C BC #### [facility] [address] [place], [place] [address] Dr. Kalie Rodas WBC 10-20 Abnormal NONE SEEN [facility] Comment on above: Performed By: #### C BC #### [facility] [address] [place], [place] [address] Dr. 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 COMPARISON: None. TECHNIQUE: Portable chest FINDINGS: The lung parenchyma is free of consolidation or infiltrate. No pneumothorax or pleural effusion. Right sided central venous access cath. The cardiac, mediastinal and hilar contours are normal. The visualized osseous structures exhibit no gross abnormality. IMPRESSION: No acute cardiopulmonary abnormality. Electronically authenticated by: MIRELA HUFFMAN Date: 2022-07-14 19:07 Normal [facility] Basic Metab w/rfx MGon 07-08 Anion gap [Moles/Vol] 13 mmol/L Normal 9-17 [facility] Comment on above: Performed By: #### B CECY, CBC #### [facility] [address] [facility] [place] [address] Yard Switch Operator: You Bro DO Calcium [Mass/Vol] 9.3 mg/dL Normal 8.6-10.4 [facility] Comment on above: Performed By: #### B CECY, CBC #### [facility] [address] [facility] [place] [address] Yard Switch Operator: You Bro DO Chloride [Moles/Vol] 100 mmol/L Normal 98-107 [facility] Comment on above: Performed By: #### B MP, CBC #### [facility] [address] [facility] [place] [address] Yard Switch Operator: You Bro, DO CO2 [Moles/Vol] 23 mmol/L Normal 20-31 [facility] Comment on above: Performed By: #### B MP, CBC #### [facility] [address] [facility] [place] [address] Yard Switch Operator: You Bro DO Creatinine [Mass/Vol] 3.50 mg/dL High 0.70-1.20 [facility] Comment on above: Performed By: #### B CECY, CBC #### [facility] [address] [facility] [place] [address] Yard Switch Operator: You Bro DO GFR/1.73 sq M.predicted among non-blacks MDRD (S/P/Bld) [Vol rate/Area] 19 mL/min/{1.73_m2} Low >60 [facility] Comment on above: Result Comment: These [...] Performed By: #### B CECY, CBC #### [facility] [address] [facility] [place] [address] Yard Switch Operator: You Bro DO Glucose [Mass/Vol] 176 mg/dL High 70-99 [facility] Comment on above: Performed By: #### B CECY, CBC #### [facility] [place] [address] Yard Switch Operator: You Bro DO Potassium [Moles/Vol] 4.7 mmol/L Normal 3.7-5.3 [facility] Comment on above: Performed By: #### B CECY, CBC #### [facility] [place] [address] Yard Switch Operator: You Bro DO Sodium [Moles/Vol] 136 mmol/L Normal 135-144 [facility] Comment on above: Performed By: #### B CECY CBC #### [facility] [address] [facility] [place] [address] Yard Switch Operator: You Bro DO Urea nitrogen [Mass/Vol] 56 mg/dL High 8-23 [facility] Comment on above: Performed By: #### B MP, CBC #### [facility] [address] [facility] [place] [address] Yard Switch Operator: You Bro DO Basic Metabolic Panel w/ Ref artis to MGon 07-08-2022 Anion gap [Moles/Vol] 13 mmol/L 9 - 17 mmol/L [facility] Calcium [Mass/Vol] 9.3 mg/dL 8.6 - 10. 4 mg/dL [facility] Chloride [Moles/Vol] 100 mmol/L 98 - 10 7 mmol/L [facility] CO2 [Moles/Vol] 23 mmol/L 20 - 31 mmol/L [facility] Creatinine [Mass/Vol] 3.5 mg/dL High 0.70 - 1.20 mg/dL [facility] GFR/1.73 sq M.predicted MDRD (S/P/Bld) [Vol rate/Area] 19 mL/min/{1.73_m2} Low - PINF [facility] Comment on above: These results are not [...] 176 mg/dL High 70 - 99 mg/dL [facility] Interpretation and review of laboratory results Abnormal [facility] [employer] Potassium [Moles/Vol] 4.7 mmol/L 3.7 - 5.3 mmol/L [facility] Sodium [Moles/Vol] 136 mmol/L 135 - 144 mmol/L [facility] Urea nitrogen [Mass/Vol] 56 mg/dL High 8 - 23 mg/dL [facility] CBC auto differentialon 06-11 Absolute Eos # 0.30 [facility] Absolute Lymph # 2.40 [facility] Absolute Dawson # 0.80 [facility] Basophils (Bld) [#/Vol] 0.10 10*3/uL [facility] Basophils/100 WBC (Bld) 1 % 0 - 2 % [facility] Eosinophils/100 WBC (Bld) 4 % 0 - 4 % [facility] Hematocrit (Bld) [Volume fraction] 34.0 % Low 41 - 53 % [facility] Hemoglobin (Bld) [Mass/Vol] 11.2 g/dL Low 13.5 - 17.5 g/dL [facility] Interpretation and review of laboratory results Abnormal [facility] Lymphocytes/100 WBC (Bld) 29 % 24 - 44 % [facility] MCH (RBC) [Entitic mass] 30.9 pg 26 - 34 pg [facility] MCHC (RBC) [Mass/Vol] 32.8 g/dL 31 - 37 g/dL B [facility] MCV (RBC) [Entitic vol] 94.3 fL 80 - 100 fL [facility] Monocytes/100 WBC (Bld) 9 % High 1 - 7 % [facility] Platelet distribution width (Bld) [Ratio] 14.2 % 11.5 - 14.9 % [facility] Platelet mean volume (Bld) [Entitic vol] 9.2 fL 6.0 - 12.0 fL [facility] Platelets (Bld) [#/Vol] 150 10*3/uL [facility] RBC (Bld) [#/Vol] 3.61 10*6/uL Low 4.5 - 5.9 m/uL [facility] Segmented neutrophils/100 WBC (Bld) 57 % 36 - 66 % [facility] Segs Absolute 4.80 [facility] WBC (Bld) [#/Vol] 8.4 10*3/uL [facility] CBC with Diffon 07-08-2022 Abs. Basophil 0.10 k/uL Normal 0.0-0.2 [facility] Comment on above: Performed By: #### B MP, CBC #### [facility] [address] [place] [address] Yard Switch Operator: You Bro DO Abs.Neutrophil (Seg) 4.80 k/uL Normal 1.3-9.1 [facility] Comment on above: Performed By: #### B MP, CBC #### [facility] [address] [facility] [place] [address] Yard Switch Operator: You Bro DO Basophils/100 WBC (Bld) 1 % Normal 0-2 [facility] Comment on above: Performed By: #### B MP, CBC #### [facility] [place] [address] Yard Switch Operator: You Bro DO Eosinophils (Bld) [#/Vol] 0.30 10*3/uL Normal 0.0-0.4 [facility] Comment on above: Performed By: #### B MP, CBC #### [facility] [facility] [place] [address] Yard Switch Operator: You Bro DO Eosinophils/100 WBC (Bld) 4 % Normal 0-4 [facility] Comment on above: Performed By: #### B MP, CBC #### [facility] [address] [facility] [place] [address] Yard Switch Operator: You Bro DO Erythrocyte distribution width (RBC) [Ratio] 14.2 % Normal 11.5-14.9 [facility] Comment on above: Performed By: #### B MP, CBC #### [facility] [address] [facility] [place] [address] Yard Switch Operator: You Bro DO Hematocrit (Bld) [Volume fraction] 34.0 % Low 41-53 [facility] Comment on above: Performed By: #### B MP, CBC #### [facility] [address] [place], [place] [address] [address] Yard Switch Operator: You Bro DO Hemoglobin (Bld) [Mass/Vol] 11.2 g/dL Low 13.5-17.5 [facility] Comment on above: Performed By: #### B MP, CBC #### [facility] [place] [address] Yard Switch Operator: You Bro DO Lymphocytes (Bld) [#/Vol] 2.40 10*3/uL Normal 1.0-4.8 [facility] Comment on above: Performed By: #### B MP, CBC #### [facility] [address] [place] [address] Yard Switch Operator: You Bro DO Lymphocytes/100 WBC (Bld) 29 % Normal 24-44 [facility] Comment on above: Performed By: #### B MP, CBC #### [facility] [address] [place] [address] Yard Switch Operator: You Bro DO MCH (RBC) [Entitic mass] 30.9 pg Normal 26-34 [facility] Comment on above: Performed By: #### B MP, CBC #### [facility] [address] [place] [address] Yard Switch Operator: You Bro DO MCHC (RBC) [Mass/Vol] 32.8 g/dL Normal 31-37 [facility] Comment on above: Performed By: #### B MP, CBC #### [facility] [address] [place] [address] Yard Switch Operator: Fanelly, You, DO MCV (RBC) [Entitic vol] 94.3 fL Normal 80-100 [facility] Comment on above: Performed By: #### B MP, CBC #### [facility] [address] [place] [address] Yard Switch Operator: You Bro DO Monocytes (Bld) [#/Vol] 0.80 10*3/uL Normal 0.1-1.3 [facility] Comment on above: Performed By: #### B MP, CBC #### [facility] [address] [place] [address] Yard Switch Operator: You Bro DO Monocytes/100 WBC (Bld) 9 % High 1-7 [facility] Comment on above: Performed By: #### B MP, CBC #### [facility] [address] [place] [address] Yard Switch Operator: You Bro DO Neutrophil (Seg) 57 % Normal 36-66 [facility] Comment on above: Performed By: #### B MP, CBC #### [facility] [address] [place] [address] Yard Switch Operator: You Bro DO Platelet mean volume (Bld) [Entitic vol] 9.2 fL Normal 6.0-12.0 [facility] Comment on above: Performed By: #### B MP, CBC #### [facility] [place] [address] Yard Switch Operator: You Bro DO Platelets (Bld) [#/Vol] 150 10*3/uL Normal 150-450 [facility] Comment on above: Performed By: #### B MP, CBC #### [facility] [place] [address] Yard Switch Operator: You Bro DO RBC (Bld) [#/Vol] 3.61 10*6/uL Low 4.5-5.9 [facility] Comment on above: Performed By: #### B MP, CBC #### [facility] [address] [facility] [place] [address] Yard Switch Operator: You Bro DO WBC (Bld) [#/Vol] 8.4 10*3/uL Normal 3.5-11.0 [facility] Comment on above: Performed By: #### B MP, CBC #### [facility] [address] [facility] [place] [address] Yard Switch Operator: You Bro DO POC Glucose Fingerstickon Glucose [Mass/Vol] 267 mg/dL High 75 - 110 mg/dL [facility] Interpretation and review of laboratory results Abnormal [facility] Glucose [Mass/Vol] 160 mg/dL High 75 - 110 mg/dL [facility] Interpretation and review of laboratory results Abnormal [facility] POC Glucose Fingerstickon Glucose [Mass/Vol] 210 mg/dL High 75 - 110 mg/dL [facility] Interpretation and review of laboratory results Abnormal [facility] Glucose [Mass/Vol] 173 mg/dL High 75 - 110 mg/dL [facility] Interpretation and review of laboratory results Abnormal [facility] Glucose [Mass/Vol] 247 mg/dL High 75 - 110 mg/dL [facility] Interpretation and review of laboratory results Abnormal [facility] Glucose [Mass/Vol] 158 mg/dL High 75 - 110 mg/dL [facility] Interpretation and review of laboratory results Abnormal [facility] Basic Metab w/rfx MGon 07-06 Anion gap [Moles/Vol] 15 mmol/L Normal 9-17 [facility] Comment on above: Performed By: #### B MPX ####[facility] [id number] [facility] [place] [address] Lab Director: You Bro DO Calcium [Mass/Vol] 9.4 mg/dL Normal 8.6-10.4 [facility] Comment on above: Performed By: #### B MPX ####[facility] [id number] [facility] [place] [address] Lab Director: You Bro DO Chloride [Moles/Vol] 101 mmol/L Normal 98-107 [facility] Comment on above: Performed By: #### B MPX ####[facility] [id number] [facility], [place] [phone] Director: You Bro DO CO2 [Moles/Vol] 22 mmol/L Normal 20-31 [facility] Comment on above: Performed By: #### B MPX ####[facility] [id number] [facility] [place] [address] Lab Director: You Bro DO Creatinine [Mass/Vol] 4.01 mg/dL High 0.70-1.20 [facility] Comment on above: Performed By: #### B MPX ####[facility] [id number] [facility], [place] [phone] Director: You Bro DO GFR/1.73 sq M.predicted among non-blacks MDRD (S/P/Bld) [Vol rate/Area] 16 mL/min/{1.73_m2} Low >60 [facility] Comment on above: Result Comment: These [...] tubular secretion. Performed By: #### B MPX ####[facility] [id number] [place] [facility] [place] [address] Lab Director: You Bro DO Glucose [Mass/Vol] 191 mg/dL High 70-99 [facility] Comment on above: Performed By: #### B MPX ####[facility] [id number] [facility] [place] [address] Lab Director: You Bro DO Potassium [Moles/Vol] 4.6 mmol/L Normal 3.7-5.3 [facility] Comment on above: Performed By: #### B MPX ####[facility] [id number] [facility] [place] [address] Lab Director: You Bro DO Sodium [Moles/Vol] 138 mmol/L Normal 135-144 [facility] Comment on above: Performed By: #### B MPX ####[facility] [id number] [facility] [place] [address] Lab Director: You Bro DO Urea nitrogen [Mass/Vol] 66 mg/dL High 8-23 [facility] Comment on above: Performed By: #### B MPX ####[facility] [id number] [facility] [place] [address] Lab Director: You Bro DO Basic Metabolic Panel w/ Ref artis to MGon 07-06-2022 Anion gap [Moles/Vol] 15 mmol/L 9 - 17 mmol/L [facility] Calcium [Mass/Vol] 9.4 mg/dL 8.6 - 10. 4 mg/dL [facility] Chloride [Moles/Vol] 101 mmol/L 98 - 10 7 mmol/L [facility] CO2 [Moles/Vol] 22 mmol/L 20 - 31 mmol/L [facility] Creatinine [Mass/Vol] 4.01 mg/dL High 0.70 - 1.20 mg/dL [facility] GFR/1.73 sq M.predicted MDRD (S/P/Bld) [Vol rate/Area] 16 mL/min/{1.73_m2} Low - PINF [facility] Comment on above: These results are not [...] 191 mg/dL High 70 - 99 mg/dL [facility] Interpretation and review of laboratory results Abnormal [facility] Potassium [Moles/Vol] 4.6 mmol/L 3.7 - 5.3 mmol/L [facility] Sodium [Moles/Vol] 138 mmol/L 135 - 144 mmol/L [facility] Urea nitrogen [Mass/Vol] 66 mg/dL High 8 - 23 mg/dL [facility] POC Glucose Fingerstickon Glucose [Mass/Vol] 261 mg/dL High 75 - 110 mg/dL [facility] Interpretation and review of laboratory results Abnormal [facility] Glucose [Mass/Vol] 181 mg/dL High 75 - 110 mg/dL [facility] Interpretation and review of laboratory results Abnormal [facility] Glucose [Mass/Vol] 228 mg/dL High 75 - 110 mg/dL [facility] Interpretation and review of laboratory results Abnormal [facility] Glucose [Mass/Vol] 163 mg/dL High 75 - 110 mg/dL [facility] Interpretation and review of laboratory results Abnormal [facility] Glucose Fingerstickon Glucose [Mass/Vol] 239 mg/dL High 75 - 110 mg/dL [facility] Interpretation and review of laboratory results Abnormal [facility] Glucose [Mass/Vol] 191 mg/dL High 75 - 110 mg/dL [facility] Interpretation and review of laboratory results Abnormal [facility] Glucose [Mass/Vol] 213 mg/dL High 75 - 110 mg/dL [facility] Interpretation and review of laboratory results Abnormal [facility] Glucose [Mass/Vol] 184 mg/dL High 75 - 110 mg/dL [facility] Interpretation and review of laboratory results Abnormal [facility] P[facility] Glucose Fingerstickon Glucose [Mass/Vol] 215 mg/dL High 75 - 110 mg/dL [facility] Interpretation and review of laboratory results Abnormal [facility] Glucose [Mass/Vol] 172 mg/dL High 75 - 110 mg/dL [facility] Interpretation and review of laboratory results Abnormal [facility] Glucose [Mass/Vol] 276 mg/dL High 75 - 110 mg/dL [facility] Interpretation and review of laboratory results Abnormal [facility] Glucose [Mass/Vol] 176 mg/dL High 75 - 110 mg/dL [facility] Interpretation and review of laboratory results Abnormal [facility] Basic Metabolic Panelon 06-10 Anion gap [Moles/Vol] 13 mmol/L 9 - 17 mmol/L [facility] Calcium [Mass/Vol] 9.5 mg/dL 8.6 - 10. 4 mg/dL [facility] Chloride [Moles/Vol] 100 mmol/L 98 - 10 7 mmol/L [facility] CO2 [Moles/Vol] 25 mmol/L 20 - 31 mmol/L [facility] Creatinine [Mass/Vol] 3.55 mg/dL High 0.70 - 1.20 mg/dL [facility] GFR/1.73 sq M.predicted MDRD (S/P/Bld) [Vol rate/Area] 19 mL/min/{1.73_m2} Low - PINF [facility] Comment on above: These results are not [...] 159 mg/dL High 70 - 99 mg/dL [facility] Interpretation and review of laboratory results Abnormal [facility] Potassium [Moles/Vol] 4.3 mmol/L 3.7 - 5.3 mmol/L [facility] Sodium [Moles/Vol] 138 mmol/L 135 - 144 mmol/L [facility] Urea nitrogen [Mass/Vol] 47 mg/dL High 8 - 23 mg/dL [facility] Basic Metabolic Profon 07-03 Anion gap [Moles/Vol] 13 mmol/L Normal 9-17 [facility] Comment on above: Performed By: #### B CECY CDP, MG ####[facility] [id number] [facility] [place] [address] Lab Director: You Bro DO Calcium [Mass/Vol] 9.5 mg/dL Normal 8.6-10.4 [facility] Comment on above: Performed By: #### B CECY, CDP, MG ####[facility] [id number] [facility] [place] [address] Lab Director: You Bro DO Chloride [Moles/Vol] 100 mmol/L Normal 98-107 [facility] Comment on above: Performed By: #### B CECY, CDP, MG ####[facility] [id number] [facility] [place] [address] Lab Director: You Bro DO CO2 [Moles/Vol] 25 mmol/L Normal 20-31 [facility] Comment on above: Performed By: #### B MP, CDP, MG ####[facility] [id number] [facility] [place] [address] Lab Director: You Bro DO Creatinine [Mass/Vol] 3.55 mg/dL High 0.70-1.20 [facility] Comment on above: Performed By: #### B MP CDP, MG ####[facility] [id number] [facility] [place] [address] Lab Director: You Bro DO GFR/1.73 sq M.predicted among non-blacks MDRD (S/P/Bld) [Vol rate/Area] 19 mL/min/{1.73_m2} Low >60 [facility] Comment on above: Result Comment: These [...] Performed By: #### B MP, CDP, MG ####[facility] [id number] [facility] [place] [address] Lab Director: You Bro DO Glucose [Mass/Vol] 159 mg/dL High 70-99 [facility] Comment on above: Performed By: #### B CECY CDP, MG ####[facility] [id number] [facility] [place] [address] Lab Director: You Bro DO Potassium [Moles/Vol] 4.3 mmol/L Normal 3.7-5.3 [facility] Comment on above: Performed By: #### B CECY CDP, MG ####[facility] [id number] [facility] [place] [address] Lab Director: You Bro DO Sodium [Moles/Vol] 138 mmol/L Normal 135-144 [facility] Comment on above: Performed By: #### B MP, CDP, MG ####[facility] [id number] [facility] [place] [address] Lab Director: You Bro DO Urea nitrogen [Mass/Vol] 47 mg/dL High 8- [facility] Comment on above: Performed By: #### B CECY, DARLINE, MG ####[facility] [id number] [facility] [place] [address] lab Director: You Bro DO CBC with Auto Differentialon 07-03-2022 Absolute Eos # 0.30 [facility] Absolute Lymph # 2.50 [facility] Absolute Dawson # 1.10 [facility] Basophils (Bld) [#/Vol] 0.10 10*3/uL [facility] Basophils/100 WBC (Bld) 1 % 0 - 2 % [facility] Eosinophils/100 WBC (Bld) 3 % 0 - 4 % [facility] Hematocrit (Bld) [Volume fraction] 33.8 % Low 41 - 53 % [facility] Hemoglobin (Bld) [Mass/Vol] 11.2 g/dL Low 13.5 - 17.5 g/dL [facility] Interpretation and review of laboratory results Abnormal [facility] Lymphocytes/100 WBC (Bld) 22 % Low 24 - 44 % [facility] MCH (RBC) [Entitic mass] 30.6 pg 26 - [address] [facility] MCHC (RBC) [Mass/Vol] 33.2 g/dL 31 - 37 g/dL [facility] MCV (RBC) [Entitic vol] 92.0 fL 80 - 100 fL [facility] Monocytes/100 WBC (Bld) 9 % High 1 - 7 % [facility] Platelet distribution width (Bld) [Ratio] 14.9 % 11.5 - 14.9 % [facility] Platelet mean volume (Bld) [Entitic vol] 8.2 fL 6.0 - 12.0 fL [facility] Platelets (Bld) [#/Vol] 243 10*3/uL [facility] RBC (Bld) [#/Vol] 3.67 10*6/uL Low 4.5 - 5.9 m/uL [facility] Segmented neutrophils/100 WBC (Bld) 65 % 36 - 66 % [facility] Segs Absolute 7.80 [facility] WBC (Bld) [#/Vol] 11.8 10*3/uL High [facility] CBC with Diffon 07-03-2022 Abs. Basophil 0.10 k/uL Normal 0.0-0.2 [facility] Comment on above: Performed By: #### B MP, CDP, MG ####[facility] [id number] [facility] [place] [address] Lab Director: You Bro DO Abs.Neutrophil (Seg) 7.80 k/uL Normal 1.3-9.1 [facility] Comment on above: Performed By: #### B MP, CDP, MG ####[facility] [id number] [facility] [place] [address] Lab Director: You Bro DO Basophils/100 WBC (Bld) 1 % Normal 0-2 [facility] Comment on above: Performed By: #### B MP, CDP, MG ####[facility] [id number] [facility] [place] [address] Lab Director: You Bro DO Eosinophils (Bld) [#/Vol] 0.30 10*3/uL Normal 0.0-0.4 [facility] Comment on above: Performed By: #### B MP, CDP, MG ####[facility] [id number] [facility] [place] [address] Lab Director: You Bro DO Eosinophils/100 WBC (Bld) 3 % Normal 0-4 [facility] [facility] Comment on above: Performed By: #### B MP, CDP, MG ####[facility] [address] [place] [address].[place] [address] Lab Director: You Bro DO Erythrocyte distribution width (RBC) [Ratio] 14.9 % Normal 11.5-14.9 [facility] Comment on above: Performed By: #### B MP, CDP, MG ####[facility] [id number] [facility] [place] [address] lab Director: You Bro DO Hematocrit (Bld) [Volume fraction] 33.8 % Low 41-53 [facility] Comment on above: Performed By: #### B CECY, CDP, MG ####[address] [place] [address] lab Director: You Bro DO Hemoglobin (Bld) [Mass/Vol] 11.2 g/dL Low 13.5-17.5 [facility] Comment on above: Performed By: #### B CECY, CDP, MG ####[place] [address] [facility] [place] [address] lab Director: You Bro DO Lymphocytes (Bld) [#/Vol] 2.50 10*3/uL Normal 1.0-4.8 [facility] Comment on above: Performed By: #### B MP, CDP, MG ####[address], [place] [phone] Director: You Bro DO Lymphocytes/100 WBC (Bld) 22 % Low 24-44 [facility] Comment on above: Performed By: #### B MP, CDP, MG ####[address] [place] [address] Lab Director: You Bro DO MCH (RBC) [Entitic mass] 30.6 pg Normal 26-34 [facility] Comment on above: Performed By: #### B MP, CDP, MG ####[facility] [id number] [place] [address] Lab Director: You Bro DO MCHC (RBC) [Mass/Vol] 33.2 g/dL Normal 31-37 [facility] Comment on above: Performed By: #### B MP, CDP, MG ####[facility] [id number] [facility], [place] [phone] Director: You Bro DO MCV (RBC) [Entitic vol] 92.0 fL Normal 80-100 [facility] Comment on above: Performed By: #### B MP, CDP, MG ####[address], [place] [phone] Director: You Bro DO Monocytes (Bld) [#/Vol] 1.10 10*3/uL Normal 0.1-1.3 [facility] Comment on above: Performed By: #### B MP, CDP, MG ####[facility] [id number] [facility], [place] [phone] Director: You Bro DO Monocytes/100 WBC (Bld) 9 % High 1-7 [facility] Comment on above: Performed By: #### B MP, CDP, MG ####[address], [place] [phone] Director: You Bro DO Neutrophil (Seg) 65 % Normal 36-66 [facility] Comment on above: Performed By: #### B MP, CDP, MG ####[facility] [id number] [facility], [place] [phone] Director: You Bro DO Platelet mean volume (Bld) [Entitic vol] 8.2 fL Normal 6.0-12.0 [facility] Comment on above: Performed By: #### B MP, CDP, MG ####[facility] [id number] [place] [address] Lab Director: You Bro DO Platelets (Bld) [#/Vol] 243 10*3/uL Normal 150-450 [facility] Comment on above: Performed By: #### B MP, CDP, MG ####[facility] [id number] [facility] [place] [address] Lab Director: You Bro DO RBC (Bld) [#/Vol] 3.67 10*6/uL Low 4.5-5.9 [facility] Comment on above: Performed By: #### B MP, CDP, MG ####[facility] [id number] [facility] [place] [address] Lab Director: You Bro DO WBC (Bld) [#/Vol] 11.8 10*3/uL High 3.5-11.0 [facility] Comment on above: Performed By: #### B MP, CDP, MG ####[facility] [id number] [facility] [place] [address] Lab Director: You Bro DO Magnesiumon 07-03-2022 Magnesium [Mass/Vol] 1.8 mg/dL Normal 1.6-2.6 [facility] Comment on above: Performed By: #### B MP, CDP, MG ####[facility] [id number] [facility] [place] [address] Lab Director: You Bro DO Magnesium [Mass/Vol] 1.8 mg/dL 1.6 - 2 .6 mg/dL [facility] No Panel Informationon 07-03 [facility] POC Glucose Fingerstickon Glucose [Mass/Vol] 248 mg/dL High 75 - 110 mg/dL [facility] Interpretation and review of laboratory results Abnormal [facility] Glucose [Mass/Vol] 168 mg/dL High 75 - 110 mg/dL [facility] Interpretation and review of laboratory results Abnormal [facility] Glucose [Mass/Vol] 214 mg/dL High 75 - 110 mg/dL [facility] Interpretation and review of laboratory results Abnormal [facility] Glucose [Mass/Vol] 151 mg/dL High 75 - 110 mg/dL [facility] Interpretation and review of laboratory results Abnormal [facility] POC Glucose Fingerstickon Glucose [Mass/Vol] 206 mg/dL High 75 - 110 mg/dL [facility] Interpretation and review of laboratory results Abnormal [facility] Glucose [Mass/Vol] 203 mg/dL High 75 - 110 mg/dL [facility] Interpretation and review of laboratory results Abnormal [facility] Glucose [Mass/Vol] 168 mg/dL High 75 - 110 mg/dL [facility] Interpretation and review of laboratory results Abnormal [facility] Basic Metab w/rfx MGon 07-01 Anion gap [Moles/Vol] 11 mmol/L Normal 9-17 [facility] Comment on above: Performed By: #### B MP, CBC #### [facility] [address] [place] [address] Yard Switch Operator: You Bro, DO Calcium [Mass/Vol] 9.2 mg/dL Normal 8.6-10.4 [facility] Comment on above: Performed By: #### B MP, CBC #### [facility] [address] [place] [address] Yard Switch Operator: You Bro, Chloride [Moles/Vol] 98 mmol/L Normal 98-107 [facility] Comment on above: Performed By: #### B MP, CBC #### [facility] [address] [place] [address] Yard Switch Operator: You Bro DO CO2 [Moles/Vol] 27 mmol/L Normal 20-31 [facility] Comment on above: Performed By: #### B MP, CBC #### [facility] [address] [facility] [place] [address] Yard Switch Operator: You Bro DO Creatinine [Mass/Vol] 4.26 mg/dL High 0.70-1.20 [facility] Comment on above: Performed By: #### B MP, CBC #### [facility] [address] [facility] [place] [address] Yard Switch Operator: You Bro DO GFR/1.73 sq M.predicted among non-blacks MDRD (S/P/Bld) [Vol rate/Area] 15 mL/min/{1.73_m2} Low >60 [facility] Comment on above: Result Comment: These [...] Performed By: #### B CECY, CBC #### [facility] [address] [facility] [place] [address] Yard Switch Operator: You Bro DO Glucose [Mass/Vol] 147 mg/dL High 70-99 [facility] Comment on above: Performed By: #### B MP, CBC #### [facility] [place] [address] Yard Switch Operator: You Bro DO Potassium [Moles/Vol] 3.9 mmol/L Normal 3.7-5.3 [facility] Comment on above: Performed By: #### B MP, CBC #### [facility] [address] [facility] [place] [address] Yard Switch Operator: You Bro DO Sodium [Moles/Vol] 136 mmol/L Normal 135-144 [facility] Comment on above: Performed By: #### B MP, CBC #### [facility] [address] [facility] [place] [address] Yard Switch Operator: You Bro DO Urea nitrogen [Mass/Vol] 44 mg/dL High - [facility] Comment on above: Performed By: #### B MP, CBC #### [facility] [address] [facility] [place] [address] Yard Switch Operator: You Bro DO Basic Metabolic Panel w/ Ref artis to MG 07-01-2022 Anion gap [Moles/Vol] 11 mmol/L 9 - 17 mmol/L [facility] Calcium [Mass/Vol] 9.2 mg/dL 8.6 - 10. 4 mg/dL [facility] Chloride [Moles/Vol] 98 mmol/L 98 - 10 7 mmol/L [facility] CO2 [Moles/Vol] 27 mmol/L 20 - 31 mmol/L [facility] Creatinine [Mass/Vol] 4.26 mg/dL High 0.70 - 1.20 mg/dL [facility] GFR/1.73 sq M.predicted MDRD (S/P/Bld) [Vol rate/Area] 15 mL/min/{1.73_m2} Low - PINF [facility] Comment on above: These results are not [...] 147 mg/dL High 70 - 99 mg/dL [facility] [employer] Potassium [Moles/Vol] 3.9 mmol/L 3.7 - 5.3 mmol/L [facility] Sodium [Moles/Vol] 136 mmol/L 135 - 144 mmol/L [facility] Urea nitrogen [Mass/Vol] 44 mg/dL High 8 - 23 mg/dL [facility] CBC auto differentialon 06-10 Absolute Eos # 0.40 [facility] Absolute Lymph [facility] 2[facility]30 [facility] Absolute Dawson # 1.10 [facility] RS [facility] Basophils (Bld) [#/Vol] 0.10 10*3/uL [facility] Basophils/100 WBC (Bld) 1 % 0 - 2 % [facility] Eosinophils/100 WBC (Bld) 3 % 0 - 4 % [facility] Hematocrit (Bld) [Volume fraction] 32.9 % Low 41 - 53 % [facility] Hemoglobin (Bld) [Mass/Vol] 11.0 g/dL Low 13.5 - 17.5 g/dL [facility] Interpretation and review of laboratory results Abnormal [facility] Lymphocytes/100 WBC (Bld) 19 % Low 24 - 44 % [facility] MCH (RBC) [Entitic mass] 30.9 pg 26 - 34 pg [facility] MCHC (RBC) [Mass/Vol] 33.5 g/dL 31 - 37 g/dL B [facility] MCV (RBC) [Entitic vol] 92.4 fL 80 - 100 fL [facility] Monocytes/100 WBC (Bld) 9 % High 1 - 7 % [facility] Platelet distribution width (Bld) [Ratio] 14.5 % 11.5 - 14.9 % [facility] Platelet mean volume (Bld) [Entitic vol] 8.0 fL 6.0 - 12.0 fL [facility] Platelets (Bld) [#/Vol] 285 10*3/uL [facility] RBC (Bld) [#/Vol] 3.56 10*6/uL Low 4.5 - 5.9 m/uL [facility] Segmented neutrophils/100 WBC (Bld) 68 % High 36 - 66 % [facility] Segs Absolute 8.70 [facility] WBC (Bld) [#/Vol] 12.6 10*3/uL High [facility] CBC with Diffon 07-01-2022 Abs. Basophil 0.10 k/uL Normal 0.0-0.2 [facility] Comment on above: Performed By: #### B MP, CBC #### [facility] [address] [place] [address] Yard Switch Operator: You Bro DO Abs.Neutrophil (Seg) 8.70 k/uL Normal 1.3-9.1 [facility] Comment on above: Performed By: #### B MP, CBC #### [facility] [place] [address] Yard Switch Operator: You Bro DO Basophils/100 WBC (Bld) 1 % Normal 0-2 [facility] Comment on above: Performed By: #### B MP, CBC #### [facility] [place] [address] Yard Switch Operator: You Bro DO Eosinophils (Bld) [#/Vol] 0.40 10*3/uL Normal 0.0-0.4 [facility] Comment on above: Performed By: #### B MP, CBC #### [facility] [place] [address] Yard Switch Operator: You Bro DO Eosinophils/100 WBC (Bld) 3 % Normal 0-4 [facility] Comment on above: Performed By: #### B MP, CBC #### [facility] [address] [place] [address] Yard Switch Operator: You Bro DO Erythrocyte distribution width (RBC) [Ratio] 14.5 % Normal 11.5-14.9 [facility] Comment on above: Performed By: #### B MP, CBC #### [facility] [place] [address] Yard Switch Operator: You Bro DO Hematocrit (Bld) [Volume fraction] 32.9 % Low 41-53 [facility] Comment on above: Performed By: #### B MP, CBC #### [facility] [address] [place] [address] Yard Switch Operator: You Bro DO Hemoglobin (Bld) [Mass/Vol] 11.0 g/dL Low 13.5-17.5 [facility] Comment on above: Performed By: #### B MP, CBC #### [facility] [address] [place] [address] Yard Switch Operator: You Bro DO Lymphocytes (Bld) [#/Vol] 2.30 10*3/uL Normal 1.0-4.8 [facility] Comment on above: Performed By: #### B MP, CBC #### [facility] [address] [place] [address] Yard Switch Operator: You Bro DO Lymphocytes/100 WBC (Bld) 19 % Low 24-44 [facility] Comment on above: Performed By: #### B MP, CBC #### [facility] [address] [place] [address] Yard Switch Operator: You Bro DO MCH (RBC) [Entitic mass] 30.9 pg Normal 26-34 [facility] Comment on above: Performed By: #### B MP, CBC #### [facility] [address] [place] [address] Yard Switch Operator: You Bro DO MCHC (RBC) [Mass/Vol] 33.5 g/dL Normal 31-37 [facility] Comment on above: Performed By: #### B MP, CBC #### [facility] [address] [place] [address] Yard Switch Operator: You Bro DO MCV (RBC) [Entitic vol] 92.4 fL Normal 80-100 [facility] Comment on above: Performed By: #### B MP, CBC #### [facility] [place] [address] Yard Switch Operator: You Bro DO Monocytes (Bld) [#/Vol] 1.10 10*3/uL Normal 0.1-1.3 [facility] Comment on above: Performed By: #### B MP, CBC #### [facility]0 [place] [facility] [place] [address] Yard Switch Operator: You Bro DO Monocytes/100 WBC (Bld) 9 % High 1-7 [facility] Comment on above: Performed By: #### B MP, CBC #### [facility] [place] [address] Yard Switch Operator: You Bro DO Neutrophil (Seg) 68 % High 36-66 [facility] Comment on above: Performed By: #### B MP, CBC #### [facility] [address] [place] [address]. [place] [address] Yard Switch Operator: You Bro DO Platelet mean volume (Bld) [Entitic vol] 8.0 fL Normal 6.0-12.0 [facility] Comment on above: Performed By: #### B MP, CBC #### [facility]0 [address] [facility] [place] [address] Yard Switch Operator: You Bro DO Platelets (Bld) [#/Vol] 285 10*3/uL Normal 150-450 [facility] Comment on above: Performed By: #### B MP, CBC #### [facility] [address] [facility] [place] [address] Yard Switch Operator: You Bro DO RBC (Bld) [#/Vol] 3.56 10*6/uL Low 4.5-5.9 [facility] Comment on above: Performed By: #### B MP, CBC #### [facility] [address] [facility] [place] [address] Yard Switch Operator: You Bro DO WBC (Bld) [#/Vol] 12.6 10*3/uL High 3.5-11.0 [facility] Comment on above: Performed By: #### B MP, CBC #### [facility] [address] [facility] [place] [address] Yard Switch Operator: You Bro DO Hepatic Function Panelon Albumin [Mass/Vol] 3.1 g/dL Low 3.5 - 5.2 g/dL [facility] ALP [Catalytic activity/Vol] 94 U/L 40 - 129 U/L [facility] ALT [Catalytic activity/Vol] 10 U/L 5 - 41 U/L [facility] AST [Catalytic activity/Vol] 19 U/L NINF - 40 U/L [facility] Bilirubin [Mass/Vol] 0.4 mg/dL 0.3 - 1 .2 mg/dL [facility] Bilirubin.direct [Mass/Vol] 0.1 mg/dL NINF - 0.3 mg/dL [facility] Bilirubin.indirect [Mass/Vol] 0.3 mg/dL 0.0 - 1.0 mg/dL [facility] Protein [Mass/Vol] 7.2 g/dL 6.4 - 8.3 g/dL [facility] Liver Profileon 07-01-2022 Albumin [Mass/Vol] 3.1 g/dL Low 3.5-5.2 [facility] Comment on above: Performed By: #### B MP, CBC #### [facility] [address] [facility] [place] [address] Yard Switch Operator: You Bro DO Alkaline Phos 94 U/L Normal 40-129 [facility] Comment on above: Performed By: #### B MP, CBC #### [facility] [address] [place] [address] Yard Switch Operator: You Bro DO ALT [Catalytic activity/Vol] 10 U/L Normal 5-41 [facility] Comment on above: Performed By: #### B MP, CBC #### [facility] [address] [place] [address] Yard Switch Operator: You Bro DO AST [Catalytic activity/Vol] 19 U/L Normal <40 [facility] Comment on above: Performed By: #### B CECY, CBC #### [facility] [address] [place] [address] Yard Switch Operator: You Bro DO Bilirubin [Mass/Vol] 0.4 mg/dL Normal 0.3-1.2 [facility] Comment on above: Performed By: #### B CECY, CBC #### [facility] [address] [place] [address] Yard Switch Operator: You Bro DO Bilirubin, Indirect 0.3 mg/dL Normal 0.0-1.0 [facility] Comment on above: Performed By: #### B MP, CBC #### [facility] [address] [place] [address] Yard Switch Operator: You Bro DO Bilirubin.indirect [Mass/Vol] 0.1 mg/dL Normal <0.3 [facility] Comment on above: Performed By: #### B MP, CBC #### [facility] [address] [place] [address] Yard Switch Operator: You Bro DO Protein [Mass/Vol] 7.2 g/dL Normal 6.4-8.3 [facility] Comment on above: Performed By: #### B MP, CBC #### [facility] [address] [place] [address] Yard Switch Operator: You Bro DO No Panel Informationon 07-01 Interpretation and review of laboratory results Abnormal [facility] POC Glucose Fingerstickon Glucose [Mass/Vol] 230 mg/dL High 75 - 110 mg/dL [facility] Interpretation and review of laboratory results Abnormal [facility] Glucose [Mass/Vol] 179 mg/dL High 75 - 110 mg/dL [facility] Interpretation and review of laboratory results Abnormal [facility] Glucose [Mass/Vol] 230 mg/dL High 75 - 110 mg/dL [facility] Interpretation and review of laboratory results Abnormal [facility] Stone Analysison 07-01-2022 Calculi description See Note Normal [facility] Comment on above: Result Comment: (NOT E) Specimen consists of one brown calculus. The total weight is 51 mg. Performed By: #### B MP, CBC #### [facility] [address] [place] [address] Yard Switch Operator: Rodrick Jones MD Composition See Note Normal [facility] Comment on above: Result Comment: (NOT E) [...] composition determined by FTIR analysis. Performed By: [employer] [address] [place] [id number] Warranty Administrator: Sandeep Paredes MD, PhD Performed By: #### B MP, CBC #### [facility] [address] [place], [place] [phone] Yard Switch Operator: Rodrick Jones MD Mass 51 mg Normal [facility] Comment on above: Performed By: #### B MP, CBC #### [facility] [address] [place], [place] [phone] Yard Switch Operator: Rodrick Jones MD Basic Metabolic Panelon 06-10 Anion gap [Moles/Vol] 13 mmol/L 9 - 17 mmol/L [facility] Calcium [Mass/Vol] 9.1 mg/dL 8.6 - 10. 4 mg/dL [facility] Chloride [Moles/Vol] 98 mmol/L 98 - 10 7 mmol/L [facility] CO2 [Moles/Vol] 26 mmol/L 20 - 31 mmol/L [facility] Creatinine [Mass/Vol] 3.7 mg/dL High 0.70 - 1.20 mg/dL [facility] GFR/1.73 sq M.predicted MDRD (S/P/Bld) [Vol rate/Area] 18 mL/min/{1.73_m2} Low - PINF [facility] Glucose [Mass/Vol] 209 mg/dL High 70 - 99 mg/dL [facility] Interpretation and review of laboratory results Abnormal [facility] Potassium [Moles/Vol] 3.7 mmol/L 3.7 - 5.3 mmol/L [facility] Sodium [Moles/Vol] 137 mmol/L 135 - 144 mmol/L [facility] Urea nitrogen [Mass/Vol] 32 mg/dL High 8 - 23 mg/dL [facility] Basic Metabolic Profon 06-30 Anion gap [Moles/Vol] 13 mmol/L Normal 9-17 [facility] Comment on above: Performed By: #### B CECY, CBC #### [facility] [address] [place] [address] Yard Switch Operator: Rodrick Jones MD Calcium [Mass/Vol] 9.1 mg/dL Normal 8.6-10.4 [facility] Comment on above: Performed By: #### B MP, CBC #### [facility] [address] [place] [address] Yard Switch Operator: Rodrick Jones MD Chloride [Moles/Vol] 98 mmol/L Normal 98-107 [facility] Comment on above: Performed By: #### B MP, CBC #### [facility] [address] [place] [address] Yard Switch Operator: Rodrick Jones MD CO2 [Moles/Vol] 26 mmol/L Normal 20-31 [facility] Comment on above: Performed By: #### B MP, CBC #### [facility] [address] [place] [address] Yard Switch Operator: Rodrick Jones MD Creatinine [Mass/Vol] 3.70 mg/dL High 0.70-1.20 [facility] Comment on above: Performed By: #### B MP, CBC #### [address] [address] Yard Switch Operator: Rodrick Jones MD GFR/1.73 sq M.predicted among non-blacks MDRD (S/P/Bld) [Vol rate/Area] 18 mL/min/{1.73_m2} Low >60 [facility] Comment on above: Result Comment: These results [...] Performed By: #### B MP, CBC #### [facility] [address] [place] [address] Yard Switch Operator: Rodrick Jones MD Glucose [Mass/Vol] 209 mg/dL High 70-99 [facility] Comment on above: Performed By: #### B MP, CBC #### [facility] [employer] [address] [place] [address] Yard Switch Operator: Rodrick Jones MD Potassium [Moles/Vol] 3.7 mmol/L Normal 3.7-5.3 [facility] Comment on above: Performed By: #### B MP, CBC #### [facility] [employer] [address] [place] [address] Yard Switch Operator: Rodrick Jones MD Sodium [Moles/Vol] 137 mmol/L Normal 135-144 [facility] Comment on above: Performed By: #### B MP, CBC #### [facility] [employer] [address] [place] [address] Yard Switch Operator: Rodrick Jones MD Urea nitrogen [Mass/Vol] 32 mg/dL High 8-23 [facility] Comment on above: Performed By: #### B MP, CBC #### [facility] [employer] [address] [place] [address] Yard Switch Operator: Rodrick Jones MD CBCon 06-30-2022 Erythrocyte distribution width (RBC) [Ratio] 13.7 % Normal 11.8-14.4 [facility] Comment on above: Performed By: #### B MP, CBC #### [facility] [employer] [address] [place] [address] Yard Switch Operator: Rodrick Jones MD Hematocrit (Bld) [Volume fraction] 36.0 % Low 40.7-50.3 [facility] Comment on above: Performed By: #### B MP, CBC #### [facility] [employer] [address] [place] [address] Yard Switch Operator: Rodrick Jones MD Hemoglobin (Bld) [Mass/Vol] 11.6 g/dL Low 13.0-17.0 [facility] Comment on above: Performed By: #### B MP, CBC #### [facility] [employer] [address] [place] [address] Yard Switch Operator: Rodrick Jones MD MCH (RBC) [Entitic mass] 30.9 pg Normal 25.2-33.5 [facility] Comment on above: Performed By: #### B MP, CBC #### [address] [address] Yard Switch Operator: Rodrick Jones MD MCHC (RBC) [Mass/Vol] 32.2 g/dL Normal 28.4-34.8 [facility] Comment on above: Performed By: #### B MP, CBC #### [address] [address] Yard Switch Operator: Rodrick Jones MD MCV (RBC) [Entitic vol] 95.7 fL Normal 82.6-102.9 [facility] Comment on above: Performed By: #### B MP, CBC #### [address] [address] Yard Switch Operator: Rodrick Jones MD NRBC Automated 0.0 per 100 WBC Normal 0.0 [facility] Comment on above: Performed By: #### B MP, CBC #### [address] [address] Yard Switch Operator: Rodrick Jones MD Platelet mean volume (Bld) [Entitic vol] 9.7 fL Normal 8.1-13.5 [facility] Comment on above: Performed By: #### B MP, CBC #### [address] [address] Yard Switch Operator: Rodrick Jones MD Platelets (Bld) [#/Vol] 276 10*3/uL Normal 138-453 [facility] Comment on above: Performed By: #### B MP, CBC #### [address] [address] Yard Switch Operator: Rodrick Jones MD RBC (Bld) [#/Vol] 3.76 10*6/uL Low 4.21-5.77 [facility] Comment on above: Performed By: #### B MP, CBC #### [facility] [address] [place], [place] [id number] Yard Switch Operator: Rodrick Jones MD WBC (Bld) [#/Vol] 13.6 10*3/uL High 3.5-11.3 [facility] Comment on above: Performed By: #### B MP, CBC #### [facility] [address] [place] [address] Yard Switch Operator: Rodrick Jones MD Hematocrit (Bld) [Volume fraction] 36.0 % Low 40.7 - 50.3 % [facility] Hemoglobin (Bld) [Mass/Vol] 11.6 g/dL Low 13.0 - 17.0 g/dL [facility] Interpretation and review of laboratory results Abnormal [facility] MCH (RBC) [Entitic mass] 30.9 pg 25.2 - 33.5 pg [facility] MCHC (RBC) [Mass/Vol] 32.2 g/dL 28.4 - 34.8 g/dL [facility] MCV (RBC) [Entitic vol] 95.7 fL 82.6 - 102.9 fL [facility] NRBC Automated 0.0 0.0 per 100 WBC [facility] Platelet distribution width (Bld) [Ratio] 13.7 % 11.8 - 14.4 % [facility] Platelet mean volume (Bld) [Entitic vol] 9.7 fL 8.1 - 13.5 fL [facility] Platelets (Bld) [#/Vol] 276 10*3/uL [facility] RBC (Bld) [#/Vol] 3.76 10*6/uL Low 4.21 - 5.7 7 m/uL [facility] WBC (Bld) [#/Vol] 13.6 10*3/uL High [facility] POC Glucose Fingerstickon Glucose [Mass/Vol] 223 mg/dL High 75 - 110 mg/dL [facility] Interpretation and review of laboratory results Abnormal [facility] Glucose [Mass/Vol] 180 mg/dL High 75 - 110 mg/dL [facility] Interpretation and review of laboratory results Abnormal [facility] Glucose [Mass/Vol] 216 mg/dL High 75 - 110 mg/dL [facility] Interpretation and review of laboratory results Abnormal [facility] Glucose [Mass/Vol] 174 mg/dL High 75 - 110 mg/dL [facility] Interpretation and review of laboratory results Abnormal [facility] Basic Metab w/rfx MGon 06-29 Anion gap [Moles/Vol] 11 mmol/L Normal 9-17 [facility] Comment on above: Performed By: #### B MP, CBC #### [address] [address] Yard Switch Operator: Rodrick Jones MD Calcium [Mass/Vol] 9.1 mg/dL Normal 8.6-10.4 [facility] Comment on above: Performed By: #### B MP, CBC #### [address] [address] Yard Switch Operator: Rodrick Jones MD Chloride [Moles/Vol] 103 mmol/L Normal 98-107 [facility] Comment on above: Performed By: #### B MP, CBC #### [facility] [employer] [address] [place] [address] Yard Switch Operator: Rodrick Jones MD CO2 [Moles/Vol] 24 mmol/L Normal 20-31 [facility] Comment on above: Performed By: #### B MP, CBC #### [facility] [employer] [address] [place] [address] Yard Switch Operator: Rodrick Jones MD Creatinine [Mass/Vol] 4.38 mg/dL High 0.70-1.20 [facility] Comment on above: Performed By: #### B CECY, CBC #### [facility] [employer] [address] [place] [address] Yard Switch Operator: Rodrick Jonse MD GFR/1.73 sq M.predicted among non-blacks MDRD (S/P/Bld) [Vol rate/Area] 15 mL/min/{1.73_m2} Low >60 [facility] Comment on above: Result Comment: These results [...] Performed By: #### B CECY, CBC #### [facility] [employer] [address] [place] [address] Yard Switch Operator: Rodrick Jones MD Glucose [Mass/Vol] 161 mg/dL High 70-99 [facility] Comment on above: Performed By: #### B CECY, CBC #### [facility] [employer] [address] [place] [address] Yard Switch Operator: Rodrick Jones MD Potassium [Moles/Vol] 4.0 mmol/L Normal 3.7-5.3 [facility] Comment on above: Performed By: #### B MP, CBC #### [facility] [address] [place] [address] Yard Switch Operator: Rodrick Jones MD Sodium [Moles/Vol] 138 mmol/L Normal 135-144 [facility] Comment on above: Performed By: #### B MP, CBC #### [facility] [employer] [address] [place] [address] Yard Switch Operator: Rodrick Jones MD Urea nitrogen [Mass/Vol] 43 mg/dL High 8-23 [facility] Comment on above: Performed By: #### B MP, CBC #### [facility] [address] [place] [address] Yard Switch Operator: Rodrick Jones MD Basic Metabolic Panel w/ Ref artis to MGon 06-29-2022 Anion gap [Moles/Vol] 11 mmol/L 9 - 17 mmol/L [facility] Calcium [Mass/Vol] 9.1 mg/dL 8.6 - 10. 4 mg/dL [facility] Chloride [Moles/Vol] 103 mmol/L 98 - 10 7 mmol/L [facility] CO2 [Moles/Vol] 24 mmol/L 20 - 31 mmol/L [facility] Creatinine [Mass/Vol] 4.38 mg/dL High 0.70 - 1.20 mg/dL [facility] GFR/1.73 sq M.predicted MDRD (S/P/Bld) [Vol rate/Area] 15 mL/min/{1.73_m2} Low - PINF [facility] Glucose [Mass/Vol] 161 mg/dL High 70 - 99 mg/dL [facility] Interpretation and review of laboratory results Abnormal [facility] Potassium [Moles/Vol] 4.0 mmol/L 3.7 - 5.3 mmol/L [facility] Sodium [Moles/Vol] 138 mmol/L 135 - 144 mmol/L [facility] Urea nitrogen [Mass/Vol] 43 mg/dL High 8 - 23 mg/dL [facility] CALCIUM, IONIC (POC)on 06-29 POC Ionized Calcium 1.13 mmol/L Low 1.15 - 1 .33 mmol/L [facility] CBCon 06-29-2022 Erythrocyte distribution width (RBC) [Ratio] 13.4 % Normal 11.8-14.4 [facility] Comment on above: Performed By: #### C RP, RENP, CBC, MG #### [facility] [address] [place] [address] Yard Switch Operator: Rodrick Jones MD Hematocrit (Bld) [Volume fraction] 35.4 % Low 40.7-50.3 [facility] Comment on above: Performed By: #### C RP, RENP, CBC, MG #### [facility] [address] [place] [address] Yard Switch Operator: Rodrick Jones MD Hemoglobin (Bld) [Mass/Vol] 11.4 g/dL Low 13.0-17.0 [facility] Comment on above: Performed By: #### C RP, RENP, CBC, MG #### [facility] [address] [place] [address] Yard Switch Operator: Rodrick Jones MD MCH (RBC) [Entitic mass] 30.3 pg Normal 25.2-33.5 [facility] Comment on above: Performed By: #### C RP, RENP, CBC, MG #### [facility] [employer] [address] [place] [address] Yard Switch Operator: Rodrick Jones MD MCHC (RBC) [Mass/Vol] 32.2 g/dL Normal 28.4-34.8 [facility] Comment on above: Performed By: #### C RP, RENP, CBC, MG #### [facility] [employer] [address] [place] [address] Yard Switch Operator: Rodrick Jones MD MCV (RBC) [Entitic vol] 94.1 fL Normal 82.6-102.9 [facility] Comment on above: Performed By: #### C RP, RENP, CBC, MG #### [facility] [employer] [address] [place] [address] Yard Switch Operator: Rodrick Jones MD NRBC Automated 0.0 per 100 WBC Normal 0.0 [facility] Comment on above: Performed By: #### C RP, RENP, CBC, MG #### [facility] [employer] [address] [place] [address] Yard Switch Operator: Rodrick Jones MD Platelet mean volume (Bld) [Entitic vol] 10.4 fL Normal 8.1-13.5 [facility] Comment on above: Performed By: #### C RP, RENP, CBC, MG #### [facility] [address] [place] [address] Yard Switch Operator: Rodrick Jones MD Platelets (Bld) [#/Vol] 357 10*3/uL Normal 138-453 [facility] Comment on above: Performed By: #### C RP, RENP, CBC, MG #### [facility] [employer] [facility] [place] [address] Yard Switch Operator: Rodrick Jones MD RBC (Bld) [#/Vol] 3.76 10*6/uL Low 4.21-5.77 [facility] Comment on above: Performed By: #### C RP, RENP, CBC, MG #### [facility] [place] [address] Yard Switch Operator: Rodrick Jones MD WBC (Bld) [#/Vol] 13.4 10*3/uL High 3.5-11.3 [facility] Comment on above: Performed By: #### C RP, RENP, CBC, MG #### [facility] [place] [address] Yard Switch Operator: Rodrick Jones MD Hematocrit (Bld) [Volume fraction] 35.4 % Low 40.7 - 50.3 % [facility] Hemoglobin (Bld) [Mass/Vol] 11.4 g/dL Low 13.0 - 17.0 g/dL [facility] Interpretation and review of laboratory results Abnormal [facility] MCH (RBC) [Entitic mass] 30.3 pg 25.2 - 33.5 pg [facility] MCHC (RBC) [Mass/Vol] 32.2 g/dL 28.4 - 34.8 g/dL [facility] MCV (RBC) [Entitic vol] 94.1 fL 82.6 - 102.9 fL [facility] NRBC Automated 0.0 0.0 per 100 WBC [facility] Platelet distribution width (Bld) [Ratio] 13.4 % 11.8 - 14.4 % [facility] Platelet mean volume (Bld) [Entitic vol] 10.4 fL 8.1 - 13.5 fL [facility] Platelets (Bld) [#/Vol] 357 10*3/uL [facility] RBC (Bld) [#/Vol] 3.76 10*6/uL Low 4.21 - 5.7 7 m/uL [facility] WBC (Bld) [#/Vol] 13.4 10*3/uL High [facility] CBC with Auto Differentialon 06-29-2022 Absolute Eos # 0.37 [facility] Absolute Immature Granulocyte 0.49 High [facility] Absolute Lymph # 2.09 [facility] Absolute Dawson # 1.01 [facility] Basophils (Bld) [#/Vol] 0.10 10*3/uL [facility] Basophils/100 WBC (Bld) 1 % 0 - 2 % [facility] Eosinophils/100 WBC (Bld) 3 % 1 - 4 % [facility] Hematocrit (Bld) [Volume fraction] 35.7 % Low 40.7 - 50.3 % [facility] Hemoglobin (Bld) [Mass/Vol] 11.4 g/dL Low 13.0 - 17.0 g/dL [facility] Immature granulocytes/100 WBC (Bld) 4 % High 0 [facility] Interpretation and review of laboratory results Abnormal [facility] Lymphocytes/100 WBC (Bld) 16 % Low 24 - 43 % [facility] MCH (RBC) [Entitic mass] 30.5 pg 25.2 - 33.5 pg [facility] MCHC (RBC) [Mass/Vol] 31.9 g/dL 28.4 - 34.8 g/dL [facility] MCV (RBC) [Entitic vol] 95.5 fL 82.6 - 102.9 fL [facility] Monocytes/100 WBC (Bld) 8 % 3 - 12 % [facility] NRBC Automated 0.0 0.0 per 100 WBC [facility] Platelet distribution width (Bld) [Ratio] 13.5 % 11.8 - 14.4 % [facility] Platelet mean volume (Bld) [Entitic vol] 9.7 fL 8.1 - 13.5 fL [facility] Platelets (Bld) [#/Vol] 301 10*3/uL [facility] RBC (Bld) [#/Vol] 3.74 10*6/uL Low 4.21 - 5.7 7 m/uL [facility] Seg Neutrophils 68 % High 36 - 65 % [facility] Segs Absolute 8.88 High [facility] WBC (Bld) [#/Vol] 12.9 10*3/uL High [facility] CBC with Diffon 06-29-2022 Abs. Basophil 0.10 k/uL Normal 0.00-0.20 [facility] Comment on above: Performed By: #### B MP, CBC #### [facility] [employer] [address] [place] [address] Yard Switch Operator: Rodrick Jones MD Abs.Imm.Granulocyte 0.49 k/uL High 0.00-0.30 [facility] Comment on above: Performed By: #### B MP, CBC #### [facility] [address] [place] [address] Yard Switch Operator: Rodrick Jones MD Abs.Neutrophil (Seg) 8.88 k/uL High 1.50-8.10 [facility] Comment on above: Performed By: #### B MP, CBC #### [facility] [address] [place] [address] Yard Switch Operator: Rodrick Jones MD Basophils/100 WBC (Bld) 1 % Normal 0-2 [facility] Comment on above: Performed By: #### B MP, CBC #### [address] [address] Yard Switch Operator: Rodrick Jones MD Eosinophils (Bld) [#/Vol] 0.37 10*3/uL Normal 0.00-0.44 [facility] Comment on above: Performed By: #### B MP, CBC #### [address] [address] Yard Switch Operator: Rodrick Jones MD Eosinophils/100 WBC (Bld) 3 % Normal 1-4 [facility] Comment on above: Performed By: #### B MP, CBC #### [address] [address] Yard Switch Operator: Rodrick Jones MD Erythrocyte distribution width (RBC) [Ratio] 13.5 % Normal 11.8-14.4 [facility] Comment on above: Performed By: #### B MP, CBC #### [address] [address] Yard Switch Operator: Rodrick Jones MD Hematocrit (Bld) [Volume fraction] 35.7 % Low 40.7-50.3 [facility] Comment on above: Performed By: #### B MP, CBC #### [facility] [address] [place] [address] Yard Switch Operator: Rodrick Jones MD Hemoglobin (Bld) [Mass/Vol] 11.4 g/dL Low 13.0-17.0 [facility] Comment on above: Performed By: #### B MP, CBC #### [address] [address] Yard Switch Operator: Rodrick Jones MD Immature granulocytes/100 WBC (Bld) 4 % High 0 [facility] Comment on above: Performed By: #### B MP, CBC #### [facility] [employer] [address] [place] [address] Yard Switch Operator: Rodrick Jones MD Lymphocytes (Bld) [#/Vol] 2.09 10*3/uL Normal 1.10-3.70 [facility] Comment on above: Performed By: #### B MP, CBC #### [address] [address] Yard Switch Operator: Rodrick Jones MD Lymphocytes/100 WBC (Bld) 16 % Low 24-43 [facility] Comment on above: Performed By: #### B MP, CBC #### [address] [address] Yard Switch Operator: Rodrick Jones MD MCH (RBC) [Entitic mass] 30.5 pg Normal 25.2-33.5 [facility] Comment on above: Performed By: #### B MP, CBC #### [place] [address] Yard Switch Operator: Rodrick Jones MD MCHC (RBC) [Mass/Vol] 31.9 g/dL Normal 28.4-34.8 [facility] Comment on above: Performed By: #### B MP, CBC #### [place] [address] Yard Switch Operator: Rodrick Jones MD MCV (RBC) [Entitic vol] 95.5 fL Normal 82.6-102.9 [facility] Comment on above: Performed By: #### B MP, CBC #### [address] [address] Yard Switch Operator: Rodrick Jones MD Monocytes (Bld) [#/Vol] 1.01 10*3/uL Normal 0.10-1.20 [facility] Comment on above: Performed By: #### B MP, CBC #### [address] [address] Yard Switch Operator: Rodrick Jones MD Monocytes/100 WBC (Bld) 8 % Normal 3-12 [facility] Comment on above: Performed By: #### B MP, CBC #### [address] [address] Yard Switch Operator: Rodrick Jones MD Neutrophil (Seg) 68 % High 36-65 [facility] Comment on above: Performed By: #### B MP, CBC #### [address] [address] Yard Switch Operator: Rodrick Jones MD NRBC Automated 0.0 per 100 WBC Normal 0.0 [facility] Comment on above: Performed By: #### B MP, CBC #### [address] [address] Yard Switch Operator: Rodrick Jones MD Platelet mean volume (Bld) [Entitic vol] 9.7 fL Normal 8.1-13.5 [facility] Comment on above: Performed By: #### B MP, CBC #### [address] [address] Yard Switch Operator: Rodrick Jones MD Platelets (Bld) [#/Vol] 301 10*3/uL Normal 138-453 [facility] Comment on above: Performed By: #### B MP, CBC #### [address] [address] Yard Switch Operator: Rodrick Jones MD RBC (Bld) [#/Vol] 3.74 10*6/uL Low 4.21-5.77 [facility] Comment on above: Performed By: #### B MP, CBC #### [address] [address] Yard Switch Operator: Rodrick Jones MD WBC (Bld) [#/Vol] 12.9 10*3/uL High 3.5-11.3 [facility] Comment on above: Performed By: #### B MP, CBC #### [employer] [address] [place] [address] Yard Switch Operator: Rodrick Jones MD Creatinine W/GFR Point of Ca reon 06-29-2022 Creatinine [Mass/Vol] 4.68 mg/dL High 0.51 - 1.19 mg/dL [facility] eGFR, POC 14 mL/min/1.73m2 [facility] Differentialon 06-29-2022 Abs. Basophil 0.13 k/uL Normal 0.0-0.2 [facility] Comment on above: Performed By: #### C RP, RENP, CBC, MG #### [employer] [address] [place] [address] Yard Switch Operator: Rodrick Jones MD Abs.Imm.Granulocyte 0.00 k/uL Normal 0.00-0.30 [facility] Comment on above: Performed By: #### C RP, RENP, CBC, MG #### [employer] [address] [place] [address] Yard Switch Operator: Rodrick Jones MD Abs.Neutrophil (Seg) 9.92 k/uL High 1.8-7.7 [facility] Comment on above: Performed By: #### C RP, RENP, CBC, MG #### [employer] [address] [place] [address] Yard Switch Operator: Rodrick Jones MD Basophils/100 WBC (Bld) 1 % Normal 0-2 [facility] Comment on above: Performed By: #### C RP, RENP, CBC, MG #### [employer] [address] [place] [address] Yard Switch Operator: Rodrick Jones MD Eosinophils (Bld) [#/Vol] 0.27 10*3/uL Normal 0.0-0.4 [facility] Comment on above: Performed By: #### C RP, RENP, CBC, MG #### [address] [address] Yard Switch Operator: Rodrick Jones MD Eosinophils/100 WBC (Bld) 2 % Normal 1-4 [facility] Comment on above: Performed By: #### C RP, RENP, CBC, MG #### [address] [address] Yard Switch Operator: Rodrick Jones MD Immature granulocytes/100 WBC (Bld) 0 % Normal 0 [facility] Comment on above: Performed By: #### C RP, RENP, CBC, MG #### [address] [address] Yard Switch Operator: Rodrick Jones MD Lymphocytes (Bld) [#/Vol] 2.14 10*3/uL Normal 1.0-4.8 [facility] Comment on above: Performed By: #### C RP, RENP, CBC, MG #### [address] [address] Yard Switch Operator: Rodrick Jones MD Lymphocytes/100 WBC (Bld) 16 % Low 24-44 [facility] Comment on above: Performed By: #### C RP, RENP, CBC, MG #### [address] [address] Yard Switch Operator: Rodrick Jones MD Monocytes (Bld) [#/Vol] 0.94 10*3/uL High 0.1-0.8 [facility] Comment on above: Performed By: #### C RP, RENP, CBC, MG #### [address] [address] Yard Switch Operator: Rodrick Jones MD Monocytes/100 WBC (Bld) 7 % Normal 1-7 [facility] Comment on above: Performed By: #### C RP, RENP, CBC, MG #### [facility] [address] [place], [place] [address], [place] [id number] Yard Switch Operator: Rodrick Jones MD Morphology Cale (Bld) [Interp] Normal Normal [facility] Comment on above: Performed By: #### C RP, RENP, CBC, MG #### [facility] [address] [place], [place] [id number] Yard Switch Operator: Rodrick Jones MD Neutrophil (Seg) 74 % High 36-66 [facility] Comment on above: Performed By: #### C RP, RENP, CBC, MG #### [facility] [address] [place], [place] [id number] Yard Switch Operator: Rodrick Jones MD Absolute Eos # 0.27 [facility] Absolute Immature Granulocyte 0.00 [facility] Absolute Lymph # 2.14 [facility] Absolute Dawson # 0.94 High [facility] Basophils (Bld) [#/Vol] 0.13 10*3/uL [facility] Basophils/100 WBC (Bld) 1 % 0 - 2 % [facility] Eosinophils/100 WBC (Bld) 2 % 1 - 4 % [facility] Immature granulocytes/100 WBC (Bld) 0 % 0 [facility] Interpretation and review of laboratory results Abnormal [facility] Lymphocytes/100 WBC (Bld) 16 % Low 24 - 44 % [facility] Monocytes/100 WBC (Bld) 7 % 1 - 7 % [facility] Morphology Cale (Bld) [Interp] Normal [facility] Seg Neutrophils 74 % High 36 - 66 % [facility] Segs Absolute 9.[address] [facility] ELECTROLYTES PLUSon 06-30-19 23 Anion gap [Moles/Vol] 14 mmol/L 7 - 16 mmol/L [facility] Chloride [Moles/Vol] 101 mmol/L 98 - 10 7 mmol/L [facility] CO2 [Moles/Vol] 26 mmol/L 22 - 30 mmol/L [facility] Potassium [Moles/Vol] 4.0 mmol/L 3.5 - 4.5 mmol/L [facility] Sodium [Moles/Vol] 140 mmol/L 138 - 146 mmol/L [facility] FLUORO FOR SURGICAL PROCEDUR ESon 06-29-2022 FLUORO FOR SURGICAL PROCEDURES Radiology exam is complete. No Radiologist dictation. Please follow up with ordering provider. Final result Normal [facility] RIS CONSOLIDATED Hemoglobin and hematocrit, b loodon 06-29-2022 Hematocrit (Bld) [Volume fraction] 36 % Low 41 - 53 % [facility] Hemoglobin (Bld) [Mass/Vol] 12.2 g/dL Low 13.5 - 17.5 g/dL [facility] [employer] No Panel Informationon 06-29 Interpretation and review of laboratory results Abnormal [facility] Franchisee GladiatorSELECT [facility] POC Glucose Fingerstickon Glucose [Mass/Vol] 208 mg/dL High 75 - 110 mg/dL [facility] Interpretation and review of laboratory results Abnormal [facility]AST[facility]cha.se [facility]ITALOxford GeneticsSELECT [facility] Glucose [Mass/Vol] 142 mg/dL High 75 - 110 mg/dL [facility] Interpretation and review of laboratory results Abnormal [facility] Glucose [Mass/Vol] 179 mg/dL High 75 - 110 mg/dL [facility] Interpretation and review of laboratory results Abnormal [facility] GladiatorSELECT [facility] Glucose [Mass/Vol] 157 mg/dL High 75 - 110 mg/dL [facility] Interpretation and review of laboratory results Abnormal [facility] Gladi[facility]SELECT [facility] Glucose [Mass/Vol] 163 mg/dL High 75 - 110 mg/dL [facility] Interpretation and review of laboratory results Abnormal [facility]atorCOMM[facility] SYSTEM[facility] Glucose [Mass/Vol] 145 mg/dL High 75 - 110 mg/dL [facility] GladiatorSELECT [facility] Interpretation and review of laboratory results Abnormal [facility] GladiatorAD[facility]LAND[facility] Franchise[employer] GladiatorSELECT [facility] POCT Glucoseon 06-29-2022 Glucose [Mass/Vol] 153 mg/dL High 74 - 100 mg/dL [facility] [employer] POCT urea (BUN)on 06-29-2022 Urea nitrogen [Mass/Vol] 49 mg/dL High 8 - 26 mg/dL [facility] Basic Metab w/rfx MGon 06-28 Anion gap [Moles/Vol] 14 mmol/L Normal 9-17 [facility] Comment on above: Performed By: #### C RP, RENP, CBC, MG #### [facility] [address] [place] [address] Yard Switch Operator: Rodrick Jones MD Calcium [Mass/Vol] 9.3 mg/dL Normal 8.6-10.4 [facility] Comment on above: Performed By: #### C RP, RENP, CBC, MG #### [facility] [address] [place] [address] 73461 Yard Switch Operator: Rodrick Jones MD Chloride [Moles/Vol] 98 mmol/L Normal 98-107 [facility] Comment on above: Performed By: #### C RP, RENP, CBC, MG #### [employer] [address] [place] [address] 40681 Yard Switch Operator: Rodrick Jones MD CO2 [Moles/Vol] 24 mmol/L Normal 20-31 [facility] Comment on above: Performed By: #### C RP, RENP, CBC, MG #### [employer] [address] [place] [address] 15382 Yard Switch Operator: Rodrick Jones MD Creatinine [Mass/Vol] 4.49 mg/dL High 0.70-1.20 [facility] Comment on above: Performed By: #### C RP, RENP, CBC, MG #### [facility] [employer] [address] [place] [address] 41303 Yard Switch Operator: Rodrick Jones MD GFR/1.73 sq M.predicted among non-blacks MDRD (S/P/Bld) [Vol rate/Area] 14 mL/min/{1.73_m2} Low >60 [facility] Comment on above: Result Comment: These results [...] #### C RP, RENP, CBC, MG #### [employer] [address] [place] [address] 54691 Yard Switch Operator: Rodrick Jones MD Glucose [Mass/Vol] 166 mg/dL High 70-99 [facility] Comment on above: Performed By: #### C RP, RENP, CBC, MG #### [facility] [employer] [address] [place] [address] 23544 Yard Switch Operator: Rodrick Jones MD Potassium [Moles/Vol] 3.9 mmol/L Normal 3.7-5.3 [facility] Comment on above: Performed By: #### C RP, RENP, CBC, MG #### [employer] [address] [place] [address] 00048 Yard Switch Operator: Rodrick Jones MD Sodium [Moles/Vol] 136 mmol/L Normal 135-144 [facility] Comment on above: Performed By: #### C RP, RENP, CBC, MG #### [employer] [address] [place] [address] 86851 Yard Switch Operator: Rodrick Jones MD Urea nitrogen [Mass/Vol] 42 mg/dL High 8-23 [facility] Comment on above: Performed By: #### C RP, RENP, CBC, MG #### [facility] [employer] [address] [place] [address] 40250 Yard [employer] Operator: Rodrick Jones MD Basic Metabolic Panelon 03-2 Anion gap [Moles/Vol] 15 mmol/L 9 - 17 mmol/L [facility] Calcium [Mass/Vol] 9.1 mg/dL 8.6 - 10. 4 mg/dL [facility] Chloride [Moles/Vol] 97 mmol/L Low 98 - 10 7 mmol/L [facility] CO2 [Moles/Vol] 24 mmol/L 20 - 31 mmol/L [facility] Creatinine [Mass/Vol] 4.44 mg/dL High 0.70 - 1.20 mg/dL [facility] [employer] GFR/1.73 sq M.predicted MDRD (S/P/Bld) [Vol rate/Area] 14 mL/min/{1.73_m2} Low - PINF [facility] Glucose [Mass/Vol] 184 mg/dL High 70 - 99 mg/dL [facility] Interpretation and review of laboratory results Abnormal [facility] Potassium [Moles/Vol] 3.7 mmol/L 3.7 - 5.3 mmol/L [facility] Sodium [Moles/Vol] 136 mmol/L 135 - 144 mmol/L [facility] Urea nitrogen [Mass/Vol] 42 mg/dL High 8 - 23 mg/dL [facility] Basic Metabolic Panel w/ Ref artis to MGon 06-28-2022 Anion gap [Moles/Vol] 14 mmol/L 9 - 17 mmol/L [facility] Calcium [Mass/Vol] 9.3 mg/dL 8.6 - 10. 4 mg/dL [facility] Chloride [Moles/Vol] 98 mmol/L 98 - 10 7 mmol/L [facility] CO2 [Moles/Vol] 24 mmol/L 20 - 31 mmol/L [facility] Creatinine [Mass/Vol] 4.49 mg/dL High 0.70 - 1.20 mg/dL [facility] GFR/1.73 sq M.predicted MDRD (S/P/Bld) [Vol rate/Area] 14 mL/min/{1.73_m2} Low - PINF [facility] Glucose [Mass/Vol] 166 mg/dL High 70 - 99 mg/dL [facility] Interpretation and review of laboratory results Abnormal [facility] Potassium [Moles/Vol] 3.9 mmol/L 3.7 - 5.3 mmol/L [facility] Sodium [Moles/Vol] 136 mmol/L 135 - 144 mmol/L [facility] Urea nitrogen [Mass/Vol] 42 mg/dL High 8 - 23 mg/dL [facility] Basic Metabolic Profon 06-28 Potassium [Moles/Vol] 3.7 mmol/L Normal 3.7-5.3 [facility] Comment on above: Performed By: #### C RP, RENP, CBC, MG #### [facility] [address] [place] [address] 83433 Yard Switch Operator: Rodrick Jones MD Anion gap [Moles/Vol] 15 mmol/L Normal 9-17 [facility] Comment on above: Performed By: #### C RP, RENP, CBC, MG #### [facility] [address] [place] [address] 70715 Yard Switch Operator: Rodrick Jones MD Calcium [Mass/Vol] 9.1 mg/dL Normal 8.6-10.4 [facility] Comment on above: Performed By: #### C RP, RENP, CBC, MG #### [facility] [address] [place] [address] [phone] Yard Switch Operator: Rodrick Jones MD Chloride [Moles/Vol] 97 mmol/L Low 98-107 [facility] Comment on above: Performed By: #### C RP, RENP, CBC, MG #### [facility] [employer] [address] [place] [address] 84491 Yard Switch Operator: Rodrick Jones MD CO2 [Moles/Vol] 24 mmol/L Normal 20-31 [facility] Comment on above: Performed By: #### C RP, RENP, CBC, MG #### [facility] [address] [place] [address] [phone] Yard Switch Operator: Rodrick Jones MD Creatinine [Mass/Vol] 4.44 mg/dL High 0.70-1.20 [facility] Comment on above: Performed By: #### C RP, RENP, CBC, MG #### [facility] [employer] [address] [place] [address] 93598 Yard Switch Operator: Rodrick Jones MD GFR/1.73 sq M.predicted among non-blacks MDRD (S/P/Bld) [Vol rate/Area] 14 mL/min/{1.73_m2} Low >60 [facility] Comment on above: Result Comment: These results [...] #### C RP, RENP, CBC, MG #### [facility] [employer] [address] [place] [address] 59115 Yard Switch Operator: Rodrick Jones MD Glucose [Mass/Vol] 184 mg/dL High 70-99 [facility] Comment on above: Performed By: #### C RP, RENP, CBC, MG #### [facility] [address] [place] [address] 65097 Yard Switch Operator: Rodrick Jones MD Sodium [Moles/Vol] 136 mmol/L Normal 135-144 [facility] Comment on above: Performed By: #### C RP, RENP, CBC, MG #### [facility] [address] [place] [address] 11836 Yard Switch Operator: Rodrick Jones MD Urea nitrogen [Mass/Vol] 42 mg/dL High 8-23 [facility] Comment on above: Performed By: #### C RP, RENP, CBC, MG #### [facility] [address] [place] [address] 35176 Yard Switch Operator: Rodrick Jones MD CBCon 06-28-2022 Erythrocyte distribution width (RBC) [Ratio] 13.5 % Normal 11.8-14.4 [facility] Comment on above: Performed By: #### C RP, RENP, CBC, MG #### [employer] [address] [place] [address] 14963 Yard Switch Operator: Rodrick Jones MD Hematocrit (Bld) [Volume fraction] 37.1 % Low 40.7-50.3 [facility] Comment on above: Performed By: #### C RP, RENP, CBC, MG #### [employer] [address] [place] [address] 92632 Yard Switch Operator: Rodrick Jones MD Hemoglobin (Bld) [Mass/Vol] 11.7 g/dL Low 13.0-17.0 [facility] Comment on above: Performed By: #### C RP, RENP, CBC, MG #### [employer] [address] [place] [address] 21508 Yard Switch Operator: Rodrick Jones MD MCH (RBC) [Entitic mass] 30.7 pg Normal 25.2-33.5 [facility] Comment on above: Performed By: #### C RP, RENP, CBC, MG #### [employer] [address] [place] [address] 33197 Yard Switch Operator: Rodrick Jones MD MCHC (RBC) [Mass/Vol] 31.5 g/dL Normal 28.4-34.8 [facility] Comment on above: Performed By: #### C RP, RENP, CBC, MG #### [facility] [address] [place] [address] 86236 Yard Switch Operator: Rodrick Jones MD MCV (RBC) [Entitic vol] 97.4 fL Normal 82.6-102.9 [facility] Comment on above: Performed By: #### C RP, RENP, CBC, MG #### [employer] [address] [place] [address] 47521 Yard Switch Operator: Rodrick Jones MD NRBC Automated 0.0 per 100 WBC Normal 0.0 [facility] Comment on above: Performed By: #### C RP, RENP, CBC, MG #### [facility] [address] [place] [address] 85764 Yard Switch Operator: Rodrick Jones MD Platelet mean volume (Bld) [Entitic vol] 9.9 fL Normal 8.1-13.5 [facility] Comment on above: Performed By: #### C RP, RENP, CBC, MG #### [facility] [employer] [address] [place] [address] 26907 Yard Switch Operator: Rodrick Jones MD Platelets (Bld) [#/Vol] 301 10*3/uL Normal 138-453 [facility] Comment on above: Performed By: #### C RP, RENP, CBC, MG #### [facility] [employer] [address] [place] [address] 47583 Yard Switch Operator: Rodrick Jones MD RBC (Bld) [#/Vol] 3.81 10*6/uL Low 4.21-5.77 [facility] Comment on above: Performed By: #### C RP, RENP, CBC, MG #### [facility] [employer] [address] [place] [address] 24147 Yard Switch Operator: Rodrick Jones MD WBC (Bld) [#/Vol] 13.5 10*3/uL High 3.5-11.3 [facility] Comment on above: Performed By: #### C RP, RENP, CBC, MG #### [facility] [employer] [address] [place] [address] 13842 Yard Switch Operator: Rodrick Jones MD Hematocrit (Bld) [Volume fraction] 37.1 % Low 40.7 - 50.3 % [facility] Hemoglobin (Bld) [Mass/Vol] 11.7 g/dL Low 13.0 - 17.0 g/dL [facility] [employer] Interpretation and review of laboratory results Abnormal [facility] [employer] MCH (RBC) [Entitic mass] 30.7 pg 25.2 - 33.5 pg [facility] MCHC (RBC) [Mass/Vol] 31.5 g/dL 28.4 - 34.8 g/dL [facility] MCV (RBC) [Entitic vol] 97.4 fL 82.6 - 102.9 fL [facility] [employer] NRBC Automated 0.0 0.0 per 100 WBC [facility] Platelet distribution width (Bld) [Ratio] 13.5 % 11.8 - 14.4 % [facility] Platelet mean volume (Bld) [Entitic vol] 9.9 fL 8.1 - 13.5 fL [facility] [employer] Platelets (Bld) [#/Vol] 301 10*3/uL [facility] RBC (Bld) [#/Vol] 3.81 10*6/uL Low 4.21 - 5.7 7 m/uL [facility] WBC (Bld) [#/Vol] 13.5 10*3/uL High [facility] [employer] IR TUNNELED CVC PLACE WO SQ PORT/PUMP > 5 YEARSon 06-28-2022 MHPN RIS CONSOLIDATED MHPN RIS CONSOLIDATED [facility] [employer] Work Phone: [facility] [employer] Work Phone: Radiology Study observation (narrative) [facility] [employer] Work Phone: POC Glucose Fingerstickon Glucose [Mass/Vol] 181 mg/dL High 75 - 110 mg/dL [facility] Interpretation and review of laboratory results Abnormal [facility] Glucose [Mass/Vol] 197 mg/dL High 75 - 110 mg/dL [facility] Interpretation and review of laboratory results Abnormal [facility] Glucose [Mass/Vol] 180 mg/dL High 75 - 110 mg/dL [facility] Interpretation and review of laboratory results Abnormal [facility] Glucose [Mass/Vol] 137 mg/dL High 75 - 110 mg/dL [facility] Interpretation and review of laboratory results Abnormal [facility] PTon 06-28-2022 INR Coag (PPP) [Relative time] 1.0 {INR} Normal [facility] Comment on above: Result Comment: Therapeutic Range: Moderate Anticoagulant Intensity: INR = 2.0-3.0 High Anticoagulant Intensity: INR = 2.5-3.5 Performed By: #### B CECY, CBC #### [employer] [address] [place] [address] [phone] Yard Switch Operator: Rodrick Jones MD PT Coag (PPP) [Time] 11.1 s Normal 9.1-12.3 [facility] Comment on above: Performed By: #### B CECY, CBC #### [employer] [address] [place] [address] [phone] Yard Switch Operator: Rodrick Jones MD Protime-INRon 5 INR Coag (PPP) [Relative time] 1.0 {INR} [facility] PT Coag (PPP) [Time] 11.1 s [facility] Basic Metab w/rfx MGon 06-27 Anion gap [Moles/Vol] 15 mmol/L Normal 9-17 [facility] Comment on above: Performed By: #### B CECY, CBC #### [employer] [address] [place] [address] [phone] Yard Switch Operator: Rodrick Jones MD Calcium [Mass/Vol] 9.2 mg/dL Normal 8.6-10.4 [facility] Comment on above: Performed By: #### B MP, CBC #### [facility] [employer] [address] [place] [address] [phone] Yard Switch Operator: Rodrick Jones MD Chloride [Moles/Vol] 100 mmol/L Normal 98-107 [facility] Comment on above: Performed By: #### B MP, CBC #### [facility] [address] [place] [address] 48834 Yard Switch Operator: Rodrick Jones MD CO2 [Moles/Vol] 25 mmol/L Normal 20-31 [facility] Comment on above: Performed By: #### B MP, CBC #### [facility] [address] [place] [address] 14875 Yard Switch Operator: Rodrick Jones MD Creatinine [Mass/Vol] 4.39 mg/dL High 0.70-1.20 [facility] Comment on above: Performed By: #### B MP, CBC #### [address] [address] Yard Switch Operator: Rodrick Jones MD GFR/1.73 sq M.predicted among non-blacks MDRD (S/P/Bld) [Vol rate/Area] 15 mL/min/{1.73_m2} Low >60 [facility] Comment on above: Result Comment: These results [...] Performed By: #### B MP, CBC #### [facility] [address] [place] [address] 40119 Yard Switch Operator: Rodrick Jones MD Glucose [Mass/Vol] 120 mg/dL High 70-99 [facility] Comment on above: Performed By: #### B MP, CBC #### [address] [address] Yard Switch Operator: Rodrick Jones MD Potassium [Moles/Vol] 3.7 mmol/L Normal 3.7-5.3 [facility] Comment on above: Performed By: #### B MP, CBC #### [facility] [address] [place], [place] [phone] Yard [employer] Operator: Rodrick Jones MD Sodium [Moles/Vol] 140 mmol/L Normal 135-144 [facility] Comment on above: Performed By: #### B MP, CBC #### [facility] [address] [place], [place] [phone] Yard Switch Operator: Rodrick Jones MD Urea nitrogen [Mass/Vol] 35 mg/dL High 8-23 [facility] Comment on above: Performed By: #### B MP, CBC #### [facility] [address] [place], [place] [phone] Yard Switch Operator: Rodrick Jones MD Basic Metabolic Panel w/ Ref artis to MG 06-27-2022 Anion gap [Moles/Vol] 15 mmol/L 9 - 17 mmol/L [facility] Calcium [Mass/Vol] 9.2 mg/dL 8.6 - 10. 4 mg/dL [facility] Chloride [Moles/Vol] 100 mmol/L 98 - 10 7 mmol/L [facility] CO2 [Moles/Vol] 25 mmol/L 20 - 31 mmol/L [facility] Creatinine [Mass/Vol] 4.39 mg/dL High 0.70 - 1.20 mg/dL [facility] GFR/1.73 sq M.predicted MDRD (S/P/Bld) [Vol rate/Area] 15 mL/min/{1.73_m2} Low - PINF [facility] Glucose [Mass/Vol] 120 mg/dL High 70 - 99 mg/dL [facility] Interpretation and review of laboratory results Abnormal [facility] Potassium [Moles/Vol] 3.7 mmol/L 3.7 - 5.3 mmol/L [facility] Sodium [Moles/Vol] 140 mmol/L 135 - 144 mmol/L [facility] Urea nitrogen [Mass/Vol] 35 mg/dL High 8 - 23 mg/dL [facility] CBC with Auto Differentialon 06-27-2022 Absolute Eos # 0.48 High [facility] Absolute Immature Granulocyte 0.47 High [facility] Absolute Lymph # 2.72 [facility] Absolute Dawson # 0.95 [facility] Basophils (Bld) [#/Vol] 0.15 10*3/uL [facility] Basophils/100 WBC (Bld) 1 % 0 - 2 % [facility] Eosinophils/100 WBC (Bld) 3 % 1 - 4 % [facility] Hematocrit (Bld) [Volume fraction] 34.5 % Low 40.7 - 50.3 % [facility] Hemoglobin (Bld) [Mass/Vol] 11.9 g/dL Low 13.0 - 17.0 g/dL [facility] Immature granulocytes/100 WBC (Bld) 3 % High 0 [facility] Interpretation and review of laboratory results Abnormal [facility] Lymphocytes/100 WBC (Bld) 19 % Low 24 - 43 % [facility] MCH (RBC) [Entitic mass] 33.3 pg 25.2 - 33.5 pg [facility] MCHC (RBC) [Mass/Vol] 34.5 g/dL 28.4 - 34.8 g/dL [facility] MCV (RBC) [Entitic vol] 96.6 fL 82.6 - 102.9 fL [facility] Monocytes/100 WBC (Bld) 7 % 3 - 12 % [facility] NRBC Automated 0.0 0.0 per 100 WBC [facility] Platelet distribution width (Bld) [Ratio] 14.1 % 11.8 - 14.4 % [facility] Platelet mean volume (Bld) [Entitic vol] 11.9 fL 8.1 - 13.5 fL [facility] Platelets (Bld) [#/Vol] 487 10*3/uL High [facility] RBC (Bld) [#/Vol] 3.57 10*6/uL Low 4.21 - 5.7 7 m/uL [facility] Seg Neutrophils 66 % High 36 - 65 % [facility] Segs Absolute 9.[address] [facility] [facility] WBC (Bld) [#/Vol] 14.1 10*3/uL High [facility] CBC with Diffon 06-27-2022 Abs. Basophil 0.15 k/uL Normal 0.00-0.20 [facility] Comment on above: Performed By: #### B MP, CBC #### [facility] [employer] [address] [place] [address] [phone] Yard Switch Operator: Rodrick Jones MD Abs.Imm.Granulocyte 0.47 k/uL High 0.00-0.30 [facility] Comment on above: Performed By: #### B MP, CBC #### [facility] [employer] [address] [place] [address] [phone] Yard [employer] Operator: Rodrick Jones MD Abs.Neutrophil (Seg) 9.37 k/uL High 1.50-8.10 [facility] Comment on above: Performed By: #### B MP, CBC #### [facility] [employer] [address] [place] [address] 77941 [employer] Operator: Rodrick Jones MD Basophils/100 WBC (Bld) 1 % Normal 0-2 [facility] Comment on above: Performed By: #### B MP, CBC #### [facility] [employer] [address] [place] [address] [phone] [employer] Operator: Rodrick Jones MD Eosinophils (Bld) [#/Vol] 0.48 10*3/uL High 0.00-0.44 [facility] Comment on above: Performed By: #### B MP, CBC #### [facility] [employer] [address] [place] [address] [phone] Yard [employer] Operator: Rodrick Jones MD Eosinophils/100 WBC (Bld) 3 % Normal 1-4 [facility] Comment on above: Performed By: #### B MP, CBC #### [employer] [address] [place] [address] 17983 Yard [employer] Operator: Rodrick Jones MD Erythrocyte distribution width (RBC) [Ratio] 14.1 % Normal 11.8-14.4 [facility] Comment on above: Performed By: #### B MP, CBC #### [address] [address] [employer] Operator: Rodrick Jones MD Hematocrit (Bld) [Volume fraction] 34.5 % Low 40.7-50.3 [facility] Comment on above: Performed By: #### B MP, CBC #### [address] [address] [employer] Operator: Rodrick Jones MD Hemoglobin (Bld) [Mass/Vol] 11.9 g/dL Low 13.0-17.0 [facility] Comment on above: Performed By: #### B MP, CBC #### [address] [address] [employer] Operator: Rodrick Jones MD Immature granulocytes/100 WBC (Bld) 3 % High 0 [facility] Comment on above: Performed By: #### B MP, CBC #### [address] [address] [employer] Operator: Rodrick Jones MD Lymphocytes (Bld) [#/Vol] 2.72 10*3/uL Normal 1.10-3.70 [facility] Comment on above: Performed By: #### B MP, CBC #### [address] [address] [employer] Operator: Rodrick Jonse MD Lymphocytes/100 WBC (Bld) 19 % Low 24-43 [facility] Comment on above: Performed By: #### B MP, CBC #### [address] [address] [employer] Operator: Rodrick Jones MD MCH (RBC) [Entitic mass] 33.3 pg Normal 25.2-33.5 [facility] Comment on above: Performed By: #### B MP, CBC #### [address] [address] Yard Switch Operator: Rodrick Jones MD MCHC (RBC) [Mass/Vol] 34.5 g/dL Normal 28.4-34.8 [facility] Comment on above: Performed By: #### B MP, CBC #### [address] [address] [employer] Operator: Rodrick Jones MD MCV (RBC) [Entitic vol] 96.6 fL Normal 82.6-102.9 [facility] Comment on above: Performed By: #### B MP, CBC #### [address] [address] [employer] Operator: Rodrick Jones MD Monocytes (Bld) [#/Vol] 0.95 10*3/uL Normal 0.10-1.20 [facility] Comment on above: Performed By: #### B MP, CBC #### [address] [address] [employer] Operator: Rodrick Jones MD Monocytes/100 WBC (Bld) 7 % Normal 3-12 [facility] Comment on above: Performed By: #### B MP, CBC #### [address] [address] [employer] Operator: Rodrick Jones MD Neutrophil (Seg) 66 % High 36-65 [facility] Comment on above: Performed By: #### B MP, CBC #### [address] [address] [employer] Operator: Rodrick Jones MD NRBC Automated 0.0 per 100 WBC Normal 0.0 [facility] Comment on above: Performed By: #### B MP, CBC #### [facility] [place] [address] Yard Switch Operator: Rodrick Jones MD Platelet mean volume (Bld) [Entitic vol] 11.9 fL Normal 8.1-13.5 [facility] Comment on above: Performed By: #### B MP, CBC #### [facility] [address] [place] [address] 73702 Yard [employer] Operator: Rodrick Jones MD Platelets (Bld) [#/Vol] 487 10*3/uL High 138-453 [facility] Comment on above: Performed By: #### B MP, CBC #### [facility] [address] [place] [address]35 Yard [employer] Operator: Rodrick Jones MD RBC (Bld) [#/Vol] 3.57 10*6/uL Low 4.21-5.77 [facility] Comment on above: Performed By: #### B MP, CBC #### [facility] [address] [place] [address] 15146 Yard [employer] Operator: Rodrick Jones MD WBC (Bld) [#/Vol] 14.1 10*3/uL High 3.5-11.3 [facility] Comment on above: Performed By: #### B MP, CBC #### [facility] [employer] [address] [place] [address] 10862 Yard [employer] Operator: Rodrick Jonse MD POC Glucose Fingerstickon Glucose [Mass/Vol] 167 mg/dL High 75 - 110 mg/dL [facility] [employer] Interpretation and review of laboratory results Abnormal [facility] Glucose [Mass/Vol] 171 mg/dL High 75 - 110 mg/dL [facility] Interpretation and review of laboratory results Abnormal [facility] Glucose [Mass/Vol] 196 mg/dL High 75 - 110 mg/dL [facility] Interpretation and review of laboratory results Abnormal [facility] Glucose [Mass/Vol] 117 mg/dL High 75 - 110 mg/dL [facility] Interpretation and review of laboratory results Abnormal [facility] Arterial Blood Gas, POCon [place] Test Positive [facility] FIO2 30.0 [facility] HCO3 (Bld) [Moles/Vol] 27.8 mmol/L 21.0 - 28.0 mmol/L [facility] Interpretation and review of laboratory results Abnormal [facility] Mode CPAP/PS [facility] O2 Device/Flow/% CPAP [facility] Oxygen saturation in Blood 96 % 94.0 - 98.0 % [facility] POC pCO2 42.6 [facility] POC pH 7.423 7.350 - 7.450 [facility] POC PO2 78.7 Low [facility] Positive Base Excess, Art 3 0.0 - 3.0 [facility] Sample Site Left Radial Artery [facility] Basic Metab w/rfx MGon 06-26 Anion gap [Moles/Vol] 15 mmol/L Normal 9-17 [facility] Comment on above: Performed By: #### B CECY, CBC #### [employer] [address] [place] [address]47 Yard [employer] Operator: Rodrick Jones MD Calcium [Mass/Vol] 9.0 mg/dL Normal 8.6-10.4 [facility] Comment on above: Performed By: #### B MP, CBC #### [employer] [address] [place], [place] [phone] Yard Switch Operator: Rodrick Jones MD Chloride [Moles/Vol] 100 mmol/L Normal 98-107 [facility] Comment on above: Performed By: #### B MP, CBC #### [employer] [facility] [place], [place] [phone] Yard Switch Operator: Rodrick Jones MD CO2 [Moles/Vol] 23 mmol/L Normal 20-31 [facility] Comment on above: Performed By: #### B CECY, CBC #### [facility] [address] [place] [phone] Yard Switch Operator: Rodrick Jones MD Creatinine [Mass/Vol] 3.79 mg/dL High 0.70-1.20 [facility] Comment on above: Performed By: #### B MP, CBC #### [address] [address] Yard Switch Operator: Rodrick Jones MD GFR/1.73 sq M.predicted among non-blacks MDRD (S/P/Bld) [Vol rate/Area] 17 mL/min/{1.73_m2} Low >60 [facility] Comment on above: Result Comment: These results [...] Performed By: #### B CECY, CBC #### [address] [address] Yard Switch Operator: Rodrick Jones MD Glucose [Mass/Vol] 130 mg/dL High 70-99 [facility] Comment on above: Performed By: #### B MP, CBC #### [facility] [employer] [address] [place] [address] Yard Switch Operator: Rodrick Jones MD Potassium [Moles/Vol] 3.6 mmol/L Low 3.7-5.3 [facility] Comment on above: Performed By: #### B CECY, CBC #### [facility] [employer] [address] [place] [address] Yard Switch Operator: Rodrick Jones MD Sodium [Moles/Vol] 138 mmol/L Normal 135-144 [facility] Comment on above: Performed By: #### B MP, CBC #### [employer] [address] [place], [place] [phone] Yard Switch Operator: Rodrick Jones MD Urea nitrogen [Mass/Vol] 31 mg/dL High 8-23 [facility] Comment on above: Performed By: #### B MP, CBC #### [employer] [address] [place], [place] [phone] Yard Switch Operator: Rodrick Jones MD Basic Metabolic Panel w/ Ref artis to MGon 06-26-2022 Anion gap [Moles/Vol] 15 mmol/L 9 - 17 mmol/L [facility] Calcium [Mass/Vol] 9.0 mg/dL 8.6 - 10. 4 mg/dL [facility] Chloride [Moles/Vol] 100 mmol/L 98 - 10 7 mmol/L [facility] CO2 [Moles/Vol] 23 mmol/L 20 - 31 mmol/L [facility] Creatinine [Mass/Vol] 3.79 mg/dL High 0.70 - 1.20 mg/dL [facility] GFR/1.73 sq M.predicted MDRD (S/P/Bld) [Vol rate/Area] 17 mL/min/{1.73_m2} Low - PINF [facility] Glucose [Mass/Vol] 130 mg/dL High 70 - 99 mg/dL [facility] Interpretation and review of laboratory results Abnormal [facility] Potassium [Moles/Vol] 3.6 mmol/L Low 3.7 - 5.3 mmol/L [facility] Sodium [Moles/Vol] 138 mmol/L 135 - 144 mmol/L [facility] Urea nitrogen [Mass/Vol] 31 mg/dL High 8 - 23 mg/[facility] Erythrocyte distribution width (RBC) [Ratio] 13.3 % Normal 11.8-14.4 [facility] Comment on above: Performed By: #### B MP, CBC #### [address] [address] Yard Switch Operator: Rodrick Jones MD Hematocrit (Bld) [Volume fraction] 37.5 % Low 40.7-50.3 [facility] Comment on above: Performed By: #### B MP, CBC #### [address] [address] Yard Switch Operator: Rodrick Jones MD Hemoglobin (Bld) [Mass/Vol] 12.1 g/dL Low 13.0-17.0 [facility] Comment on above: Performed By: #### B MP, CBC #### [address] [address] Yard Switch Operator: Rodrick Jones MD MCH (RBC) [Entitic mass] 30.8 pg Normal 25.2-33.5 [facility] Comment on above: Performed By: #### B MP, CBC #### [address] [address] Yard Switch Operator: Rodrick Jones MD MCHC (RBC) [Mass/Vol] 32.3 g/dL Normal 28.4-34.8 [facility] Comment on above: Performed By: #### B MP, CBC #### [address] [address] Yard Switch Operator: Rodrick Jones MD MCV (RBC) [Entitic vol] 95.4 fL Normal 82.6-102.9 [facility] Comment on above: Performed By: #### B MP, CBC #### [address] [address] Yard Switch Operator: Rodrick Jones MD NRBC Automated 0.0 per 100 WBC Normal 0.0 [facility] Comment on above: Performed By: #### B MP, CBC #### [address] [address] Yard Switch Operator: Rodrick Jones MD Platelet mean volume (Bld) [Entitic vol] 10.0 fL Normal 8.1-13.5 [facility] Comment on above: Performed By: #### B MP, CBC #### [facility] [place] [address] Yard Switch Operator: Rodrick Jones MD Platelets (Bld) [#/Vol] 299 10*3/uL Normal 138-453 [facility] Comment on above: Performed By: #### B MP, CBC #### [facility] [place], [place] [phone] Yard Switch Operator: Rodrick Jones MD RBC (Bld) [#/Vol] 3.93 10*6/uL Low 4.21-5.77 [facility] Comment on above: Performed By: #### B MP, CBC #### [address] [address] Yard Switch Operator: Rodrick Jones MD WBC (Bld) [#/Vol] 13.7 10*3/uL High 3.5-11.3 [facility] Comment on above: Performed By: #### B MP, CBC #### [address] [address] Yard Switch Operator: Rodrick Jones MD Hematocrit (Bld) [Volume fraction] 37.5 % Low 40.7 - 50.3 % [facility] Hemoglobin (Bld) [Mass/Vol] 12.1 g/dL Low 13.0 - 17.0 g/dL [facility] Interpretation and review of laboratory results Abnormal [facility] MCH (RBC) [Entitic mass] 30.8 pg 25.2 - 33.5 pg [facility] MCHC (RBC) [Mass/Vol] 32.3 g/dL 28.4 - 34.8 g/dL [facility] MCV (RBC) [Entitic vol] 95.4 fL 82.6 - 102.9 fL [facility] NRBC Automated 0.0 0.0 per 100 WBC [facility] Platelet distribution width (Bld) [Ratio] 13.3 % 11.8 - 14.4 % [facility] Platelet mean volume (Bld) [Entitic vol] 10.0 fL 8.1 - 13.5 fL [facility] Platelets (Bld) [#/Vol] 299 10*3/uL [facility] RBC (Bld) [#/Vol] 3.93 10*6/uL Low 4.21 - 5.7 7 m/uL [facility] WBC (Bld) [#/Vol] 13.7 10*3/uL High SOM S JENELLE [facility] HEAD WO CONTRASTon 2022 CT HEAD [...] Justin Villanueva DO 06/26/22 Final [facility] Work Phone: Radiology Study observation (narrative) [facility] Work Phone: CT HEAD WO CONTRASTOrdered B y: Justin Villanueva on 06-26-2022 [facility] [employer] Work Phone: Magnesiumon 06-26-2022 Magnesium [Mass/Vol] 2.0 mg/dL Normal 1.6-2.6 [facility] Comment on above: Performed By: #### B MP, CBC #### [facility] [address] [place] [address] Yard Switch Operator: Rodrick Jones MD Magnesium [Mass/Vol] 2.0 mg/dL 1.6 - 2 .6 mg/dL [facility] No Panel Informationon 06-26 [facility] [employer] POC Glucose Fingerstickon Glucose [Mass/Vol] 158 mg/dL High 75 - 110 mg/dL [facility] Interpretation and review of laboratory results Abnormal [facility] Glucose [Mass/Vol] 140 mg/dL High 75 - 110 mg/dL [facility] Interpretation and review of laboratory results Abnormal [facility] Glucose [Mass/Vol] 134 mg/dL High 75 - 110 mg/dL [facility] Interpretation and review of laboratory results Abnormal [facility] Glucose [Mass/Vol] 152 mg/dL High 75 - 110 mg/dL [facility] Interpretation and review of laboratory results Abnormal [facility] Glucose [Mass/Vol] 122 mg/dL High 75 - 110 mg/dL [facility] Interpretation and review of laboratory results Abnormal [facility] XR CHEST PORTABLEon 06-27-19 XR CHEST PORTABLE [...] Ankush Palomino MD 06/26/22 Final result Normal [facility]PN RIS CONSOLIDATED MHPN RIS CONSOLIDATED [facility] [employer] Phone: Radiology Study observation (narrative) [facility] Phone: XR CHEST PORTABLEOrdered By: Ankush Palomino on 06-26-2022 [facility] Phone: Basic Metab w/rfx MGon 06-25 Anion gap [Moles/Vol] 15 mmol/L Normal 9-17 [facility] Comment on above: Performed By: #### B MP, CBC #### [facility] [employer] [address] [place] [address] Yard Switch Operator: Rodrick Jones MD Calcium [Mass/Vol] 8.9 mg/dL Normal 8.6-10.4 [facility] Comment on above: Performed By: #### B MP, CBC #### [facility] [employer] [address] [place] [address] Yard Switch Operator: Rodrick Jones MD Chloride [Moles/Vol] 101 mmol/L Normal 98-107 [facility] Comment on above: Performed By: #### B MP, CBC #### [facility] [employer] [address] [place] [address] Yard Switch Operator: Rodrick Jones MD CO2 [Moles/Vol] 23 mmol/L Normal 20-31 [facility] Comment on above: Performed By: #### B MP, CBC #### [facility] [employer] [address] [place] [address] Yard Switch Operator: Rodrick Jones MD Creatinine [Mass/Vol] 4.65 mg/dL High 0.70-1.20 [facility] Comment on above: Performed By: #### B MP, CBC #### [employer] [address] [place] [address] Yard Switch Operator: Rodrick Jones MD GFR/1.73 sq M.predicted among non-blacks MDRD (S/P/Bld) [Vol rate/Area] 14 mL/min/{1.73_m2} Low >60 [facility] Comment on above: Result Comment: These results [...] Performed By: #### B CECY, CBC #### [employer] [address] [place] [address] Yard Switch Operator: Rodrick Jones MD Glucose [Mass/Vol] 205 mg/dL High 70-99 [facility] Comment on above: Performed By: #### B CECY, CBC #### [facility] [address] [place] [address] Yard Switch Operator: Rodrick Jones MD Potassium [Moles/Vol] 3.7 mmol/L Normal 3.7-5.3 [facility] Comment on above: Performed By: #### B CECY, CBC #### [facility] [address] [place] [address] Yard Switch Operator: Rodrick Jones MD Sodium [Moles/Vol] 139 mmol/L Normal 135-144 [facility] Comment on above: Performed By: #### B MP, CBC #### [employer] [address] [place] [address] Yard Switch Operator: Rodrick Jones MD Urea nitrogen [Mass/Vol] 41 mg/dL High 8-23 [facility] Comment on above: Performed By: #### B MP, CBC #### [facility] [address] [place] [address] Yard Switch Operator: Rodrick Jones MD Anion gap [Moles/Vol] 15 mmol/L Normal 9-17 [facility] Comment on above: Performed By: #### B MP, CBC #### [facility] [address] [place] [address] Yard Switch Operator: Rodrick Jones MD Chloride [Moles/Vol] 99 mmol/L Normal 98-107 [facility] Comment on above: Performed By: #### B MP, CBC #### [facility] [address] [place] [address] Yard Switch Operator: Rodrick Jones MD Potassium [Moles/Vol] 3.8 mmol/L Normal 3.7-5.3 [facility] Comment on above: Performed By: #### B CECY, CBC #### [facility] [address] [place] [address] Yard Switch Operator: Rodrick Jones MD Sodium [Moles/Vol] 137 mmol/L Normal 135-144 [facility] Comment on above: Performed By: #### B MP, CBC #### [facility] [address] [place] [address] Yard Switch Operator: Rodrick Jones MD Basic Metabolic Panel w/ Ref artis to MGon 06-25-2022 Anion gap [Moles/Vol] 15 mmol/L 9 - 17 mmol/L [facility] Calcium [Mass/Vol] 8.9 mg/dL 8.6 - 10. 4 mg/dL [facility] Chloride [Moles/Vol] 101 mmol/L 98 - 10 7 mmol/L [facility] CO2 [Moles/Vol] 23 mmol/L 20 - 31 mmol/L [facility] Creatinine [Mass/Vol] 4.65 mg/dL High 0.70 - 1.20 mg/dL [facility] GFR/1.73 sq M.predicted MDRD (S/P/Bld) [Vol rate/Area] 14 mL/min/{1.73_m2} Low - PINF [facility] Glucose [Mass/Vol] 205 mg/dL High 70 - 99 mg/dL [facility] Interpretation and review of laboratory results Abnormal [facility] Potassium [Moles/Vol] 3.7 mmol/L 3.7 - 5.3 mmol/L [facility] Sodium [Moles/Vol] 139 mmol/L 135 - 144 mmol/L [facility] Urea nitrogen [Mass/Vol] 41 mg/dL High 8 - 23 mg/dL [facility] CBCon 06-25-2022 Erythrocyte distribution width (RBC) [Ratio] 13.6 % Normal 11.8-14.4 [facility] Comment on above: Performed By: #### B MP, CBC #### [facility] [employer] [address] [place] [address] Yard Switch Operator: Rodrick Jones MD Hematocrit (Bld) [Volume fraction] 36.9 % Low 40.7-50.3 [facility] Comment on above: Performed By: #### B MP, CBC #### [facility] [employer] [address] [place] [address] Yard Switch Operator: Rodrick Jones MD Hemoglobin (Bld) [Mass/Vol] 12.0 g/dL Low 13.0-17.0 [facility] Comment on above: Performed By: #### B MP, CBC #### [facility] [employer] [address] [place], [place] [phone] Yard Switch Operator: Rodrick Jones MD MCH (RBC) [Entitic mass] 31.0 pg Normal 25.2-33.5 [facility] Comment on above: Performed By: #### B MP, CBC #### [facility] [address] [place] [address] [phone] Yard Switch Operator: Rodrick Jones MD MCHC (RBC) [Mass/Vol] 32.5 g/dL Normal 28.4-34.8 [facility] Comment on above: Performed By: #### B MP, CBC #### [address] [address] Yard Switch Operator: Rodrick Jones MD MCV (RBC) [Entitic vol] 95.3 fL Normal 82.6-102.9 [facility] Comment on above: Performed By: #### B MP, CBC #### [address] [address] Yard Switch Operator: Rodrick Jones MD NRBC Automated 0.0 per 100 WBC Normal 0.0 [facility] Comment on above: Performed By: #### B MP, CBC #### [address] [address] Yard Switch Operator: Rodrick Jones MD Platelet mean volume (Bld) [Entitic vol] 10.0 fL Normal 8.1-13.5 [facility] Comment on above: Performed By: #### B MP, CBC #### [address] [address] Yard Switch Operator: Rodrick Jones MD Platelets (Bld) [#/Vol] 283 10*3/uL Normal 138-453 [facility] Comment on above: Performed By: #### B MP, CBC #### [address] [address] Yard Switch Operator: Rodrick Jones MD RBC (Bld) [#/Vol] 3.87 10*6/uL Low 4.21-5.77 [facility] Comment on above: Performed By: #### B MP, CBC #### [address] [address] Yard Switch Operator: Rodrick Jones MD WBC (Bld) [#/Vol] 10.9 10*3/uL Normal 3.5-11.3 [facility] Comment on above: Performed By: #### B MP, CBC #### [employer] [address] [place], [place] [phone] Yard Switch Operator: Rodrick Jones MD Hematocrit (Bld) [Volume fraction] 36.9 % Low 40.7 - 50.3 % [facility] Hemoglobin (Bld) [Mass/Vol] 12.0 g/dL Low 13.0 - 17.0 g/dL [facility] Interpretation and review of laboratory results Abnormal [facility] MCH (RBC) [Entitic mass] 31.0 pg 25.2 - 33.5 pg [facility] MCHC (RBC) [Mass/Vol] 32.5 g/dL 28.4 - 34.8 g/dL [facility] MCV (RBC) [Entitic vol] 95.3 fL 82.6 - 102.9 fL [facility] NRBC Automated 0.0 0.0 per 100 WBC [facility] Platelet distribution width (Bld) [Ratio] 13.6 % 11.8 - 14.4 % [facility] Platelet mean volume (Bld) [Entitic vol] 10.0 fL 8.1 - 13.5 fL [facility] Platelets (Bld) [#/Vol] 283 10*3/uL [facility] RBC (Bld) [#/Vol] 3.87 10*6/uL Low 4.21 - 5.7 7 m/uL [facility] WBC (Bld) [#/Vol] 10.9 10*3/uL [facility] Cult,Bloodon 06-25-2022 Cult,Blood Specimen Description .BLOOD Special Requests RAC 10ML Culture NO GROWTH 5 DAYS Report Status FINAL 06/25/2022 [facility] Comment on above: Performed By: #### C RP, RENP, CBC, MG #### [employer] [address] [place], [place] [phone] Yard Switch Operator: Rodrick Jones MD Cult,Blood Specimen Description .BLOOD Special Requests LFA 10ML Culture NO GROWTH 5 DAYS Report Status FINAL 06/25/2022 [facility] Comment on above: Performed By: #### B MP, CBC #### [facility] [address] [place], [place] [phone] Yard Switch Operator: Rodrick Jones MD Culture, Blood 1on 3 Service comment (Unsp spec) [Interp] LFA 10ML [facility] Service comment (Unsp spec) [Interp] RAC 10ML [facility] Laboratoryon 06-25-2022 Microorganism identified Cx Nom (Unsp spec) NO GROWTH 5 DAYS [facility] Magnesiumon 06-25-2022 Magnesium [Mass/Vol] 1.9 mg/dL Normal 1.6-2.6 [facility] Comment on above: Performed By: #### B MP, CBC #### [facility] [address] [place], [place] [phone] Yard Switch Operator: Rodrick Jones MD Magnesium [Mass/Vol] 1.9 mg/dL 1.6 - 2 .6 mg/dL [facility] No Panel Informationon 06-25 [facility] Specimen Description .BLOOD [facility] POC Glucose Fingerstickon Glucose [Mass/Vol] 173 mg/dL High 75 - 110 mg/dL [facility] Interpretation and review of laboratory results Abnormal [facility] Glucose [Mass/Vol] 207 mg/dL High 75 - 110 mg/dL [facility] Interpretation and review of laboratory results Abnormal [facility] Glucose [Mass/Vol] 161 mg/dL High 75 - 110 mg/dL [facility] Interpretation and review of laboratory results Abnormal [facility] Glucose [Mass/Vol] 224 mg/dL High 75 - 110 mg/dL [facility] Interpretation and review of laboratory results Abnormal [facility] Glucose [Mass/Vol] 206 mg/dL High 75 - 110 mg/dL [facility] Interpretation and review of laboratory results Abnormal [facility] Basic Metab w/rfx MGon 06-24 Calcium [Mass/Vol] 8.3 mg/dL Low 8.6-10.4 [facility] Comment on above: Performed By: #### B MP, CBC #### [facility] [address] [place] [address] [employer] Operator: Rodrick Jones MD CO2 [Moles/Vol] 23 mmol/L Normal 20-31 [facility] Comment on above: Performed By: #### B MP, CBC #### [facility] [address] [place] [address] [employer] Operator: Rodrick Jones MD Creatinine [Mass/Vol] 4.24 mg/dL High 0.70-1.20 [facility] Comment on above: Performed By: #### B MP, CBC #### [address] [address] [employer] Operator: Rodrick Jones MD GFR/1.73 sq M.predicted among non-blacks MDRD (S/P/Bld) [Vol rate/Area] 15 mL/min/{1.73_m2} Low >60 [facility] Comment on above: Result Comment: These results [...] Performed By: #### B MP, CBC #### [facility] [employer] [address] [place] [address] Yard [employer] Operator: Rodrick Jones MD Glucose [Mass/Vol] 191 mg/dL High 70-99 [facility] Comment on above: Performed By: #### B MP, CBC #### [facility] [employer] [address] [place] [address] Yard [employer] Operator: Rodrick Jones MD Urea nitrogen [Mass/Vol] 39 mg/dL High 8-23 [facility] Comment on above: Performed By: #### B MP, CBC #### [employer] [address] [place] [address] [phone] [employer] Operator: Rodrick Jones MD Creatinine [Mass/Vol] 5.19 mg/dL Critically high 0.70-1.20 [facility] Comment on above: Result Comment: Prev ious Alert Value Reported Performed By: #### C RP, RENP, CBC, MG #### [employer] [address] [place] [address] [phone] [employer] Operator: Rodrick Jones MD GFR/1.73 sq M.predicted among non-blacks MDRD (S/P/Bld) [Vol rate/Area] 12 mL/min/{1.73_m2} Low >60 [facility] Comment on above: Result Comment: These results [...] #### C RP, RENP, CBC, MG #### [employer] [address] [place] [address] [employer] Operator: Rodrick Jones MD Anion gap [Moles/Vol] 14 mmol/L Normal 9-17 [facility] Comment on above: Performed By: #### C RP, RENP, CBC, MG #### [employer] [address] [place] [address] [phone] Yard [employer] Operator: Rodrick Jones MD Calcium [Mass/Vol] 8.8 mg/dL Normal 8.6-10.4 [facility] Comment on above: Performed By: #### C RP, RENP, CBC, MG #### [employer] [address] [place] [address] [employer] Operator: Rodrick Jones MD Chloride [Moles/Vol] 101 mmol/L Normal 98-107 [facility] Comment on above: Performed By: #### C RP, RENP, CBC, MG #### [facility] [address] [place] [address] Yard [employer] Operator: Rodrick Jones MD CO2 [Moles/Vol] 22 mmol/L Normal 20-31 [facility] Comment on above: Performed By: #### C RP, RENP, CBC, MG #### [facility] [employer] [address] [place] [address] Yard [employer] Operator: Rodrick Jones MD Glucose [Mass/Vol] 203 mg/dL High 70-99 [facility] Comment on above: Performed By: #### C RP, RENP, CBC, MG #### [facility] [employer] [address] [place] [address] Yard Switch Operator: Rodrick Jones MD Potassium [Moles/Vol] 3.9 mmol/L Normal 3.7-5.3 [facility] Comment on above: Performed By: #### C RP, RENP, CBC, MG #### [facility] [employer] [address] [place] [address] Yard [employer] Operator: Rodrick Jones MD Sodium [Moles/Vol] 137 mmol/L Normal 135-144 [facility] Comment on above: Performed By: #### C RP, RENP, CBC, MG #### [facility] [employer] [address] [place] [address] Yard Switch Operator: Rodrick Jones MD Urea nitrogen [Mass/Vol] 52 mg/dL High 8-23 [facility] Comment on above: Performed By: #### C RP, RENP, CBC, MG #### [facility] [employer] [address] [place] [address] [phone] [employer] Operator: Rodrick Jones MD Basic Metabolic Panel w/ Ref artis to MGon 06-24-2022 Anion gap [Moles/Vol] 15 mmol/L 9 - 17 mmol/L [facility] Calcium [Mass/Vol] 8.3 mg/dL Low 8.6 - 10. 4 mg/dL [facility] Chloride [Moles/Vol] 99 mmol/L 98 - 10 7 mmol/L [facility] CO2 [Moles/Vol] 23 mmol/L 20 - 31 mmol/L [facility] Creatinine [Mass/Vol] 4.24 mg/dL High 0.70 - 1.20 mg/dL [facility] GFR/1.73 sq M.predicted MDRD (S/P/Bld) [Vol rate/Area] 15 mL/min/{1.73_m2} Low - PINF [facility] Glucose [Mass/Vol] 191 mg/dL High 70 - 99 mg/dL [facility] [employer] Interpretation and review of laboratory results Abnormal [facility] Potassium [Moles/Vol] 3.8 mmol/L 3.7 - 5.3 mmol/L [facility] Sodium [Moles/Vol] 137 mmol/L 135 - 144 mmol/L [facility] Urea nitrogen [Mass/Vol] 39 mg/dL High 8 - 23 mg/dL [facility] Anion gap [Moles/Vol] 14 mmol/L 9 - 17 mmol/L [facility] Calcium [Mass/Vol] 8.8 mg/dL 8.6 - 10. 4 mg/dL [facility] Chloride [Moles/Vol] 101 mmol/L 98 - 10 7 mmol/L [facility] CO2 [Moles/Vol] 22 mmol/L 20 - 31 mmol/L [facility] Creatinine [Mass/Vol] 5.19 mg/dL Critically high 0.7 0 - 1.20 mg/dL [facility] GFR/1.73 sq M.predicted MDRD (S/P/Bld) [Vol rate/Area] 12 mL/min/{1.73_m2} Low - PINF [facility] Glucose [Mass/Vol] 203 mg/dL High 70 - 99 mg/dL [facility] Interpretation and review of laboratory results Abnormal [facility] Potassium [Moles/Vol] 3.9 mmol/L 3.7 - 5.3 mmol/L [facility] Sodium [Moles/Vol] 137 mmol/L 135 - 144 mmol/L [facility] Urea nitrogen [Mass/Vol] 52 mg/dL High 8 - 23 mg/dL [facility] CBCon 06-24-2022 Erythrocyte distribution width (RBC) [Ratio] 14.0 % Normal 11.8-14.4 [facility] Comment on above: Performed By: #### C RP, RENP, CBC, MG #### [facility] [employer] [address] [place] [phone] Yard [employer] Operator: Rodrick Jones MD Hematocrit (Bld) [Volume fraction] 35.9 % Low 40.7-50.3 [facility] Comment on above: Performed By: #### C RP, RENP, CBC, MG #### [facility] [address] [place] [phone] [employer] Operator: Rodrick Jones MD Hemoglobin (Bld) [Mass/Vol] 11.9 g/dL Low 13.0-17.0 [facility] Comment on above: Performed By: #### C RP, RENP, CBC, MG #### [facility] [address] [place] [address] [phone] [employer] Operator: Rodrick Jones MD MCH (RBC) [Entitic mass] 31.6 pg Normal 25.2-33.5 [facility] Comment on above: Performed By: #### C RP, RENP, CBC, MG #### [facility] [address] [place] [phone] Yard Switch Operator: Rodrick Jones MD MCHC (RBC) [Mass/Vol] 33.1 g/dL Normal 28.4-34.8 [facility] Comment on above: Performed By: #### C RP, RENP, CBC, MG #### [address] [address] Yard Switch Operator: Rodrick Jones MD MCV (RBC) [Entitic vol] 95.2 fL Normal 82.6-102.9 [facility] Comment on above: Performed By: #### C RP, RENP, CBC, MG #### [facility] [employer] [address] [place] [address] Yard Switch Operator: Rodrick Jones MD NRBC Automated 0.0 per 100 WBC Normal 0.0 [facility] Comment on above: Performed By: #### C RP, RENP, CBC, MG #### [place] [address] Yard Switch Operator: Rodrick Jones MD Platelet mean volume (Bld) [Entitic vol] 10.4 fL Normal 8.1-13.5 [facility] Comment on above: Performed By: #### C RP, RENP, CBC, MG #### [place] [address] Yard Switch Operator: Rodrick Jones MD Platelets (Bld) [#/Vol] 223 10*3/uL Normal 138-453 [facility] Comment on above: Performed By: #### C RP, RENP, CBC, MG #### [place] [address] Yard Switch Operator: Rodrick Jones MD RBC (Bld) [#/Vol] 3.77 10*6/uL Low 4.21-5.77 [facility] Comment on above: Performed By: #### C RP, RENP, CBC, MG #### [address] [address] Yard Switch Operator: Rodrick Jones MD WBC (Bld) [#/Vol] 10.1 10*3/uL Normal 3.5-11.3 [facility] Comment on above: Performed By: #### C RP, RENP, CBC, MG #### [facility] [employer] [address] [place] [address] Yard Switch Operator: Rodrick Jones MD Hematocrit (Bld) [Volume fraction] 35.9 % Low 40.7 - 50.3 % [facility] Hemoglobin (Bld) [Mass/Vol] 11.9 g/dL Low 13.0 - 17.0 g/dL [facility] Interpretation and review of laboratory results Abnormal [facility] MCH (RBC) [Entitic mass] 31.6 pg 25.2 - 33.5 pg [facility] MCHC (RBC) [Mass/Vol] 33.1 g/dL 28.4 - 34.8 g/dL [facility] [employer] MCV (RBC) [Entitic vol] 95.2 fL 82.6 - 102.9 fL [facility] [employer] NRBC Automated 0.0 0.0 per 100 WBC [facility] [employer] Platelet distribution width (Bld) [Ratio] 14.0 % 11.8 - 14.4 % [facility] [employer] Platelet mean volume (Bld) [Entitic vol] 10.4 fL 8.1 - 13.5 fL [facility] Platelets (Bld) [#/Vol] 223 10*3/uL [facility] RBC (Bld) [#/Vol] 3.77 10*6/uL Low 4.21 - 5.7 7 m/uL [facility] WBC (Bld) [#/Vol] 10.1 10*3/uL [facility] [employer] IR NON TUNNELED CATH WO PORT REPLACEMENTon 06-24-2022 MHPN RIS CONSOLIDATED MHPN RIS CONSOLIDATED [facility] [employer] Work Phone: Radiology Study observation (narrative) [facility] [employer] Work Phone: IR NON TUNNELED CATH WO PORT REPLACEMENTOrdered By: Cody Bolivar on 06-24-2022 [facility] [employer] Work Phone: Immunofixation urine random profileon 06-24-2022 Protein (U) [Mass/Vol] 187 mg/dL [facility] Urine IFX Interp IMMUNOFIXATION IS NEGATIVE FOR MONOCLONAL IMMUNOGLOBULIN. [facility] Urine IFX Specimen .Random Urine [facility] Immunofixation,Urineon 06-24 Ur. IFX-Interpret IMMUNOFIXATION IS NEGATIVE FOR MONOCLONAL IMMUNOGLOBULIN. Normal [facility] Comment on above: Performed By: #### C RP, RENP, CBC, MG #### [facility] [address] [place], [place] [phone] Yard Switch Operator: Rodrick Jones MD Magnesiumon 06-24-2022 Magnesium [Mass/Vol] 1.8 mg/dL Normal 1.6-2.6 [facility] Comment on above: Performed By: #### C RP, RENP, CBC, MG #### [employer] [address] [place], [place] [phone] Yard Switch Operator: Rodrick Jones MD Magnesium [Mass/Vol] 1.8 mg/dL 1.6 - 2 .6 mg/dL [facility] POC Glucose Fingerstickon Glucose [Mass/Vol] 179 mg/dL High 75 - 110 mg/dL [facility] Interpretation and review of laboratory results Abnormal [facility] Glucose [Mass/Vol] 179 mg/dL High 75 - 110 mg/dL [facility] Interpretation and review of laboratory results Abnormal [facility] Glucose [Mass/Vol] 173 mg/dL High 75 - 110 mg/dL [facility] Interpretation and review of laboratory results Abnormal [facility] Glucose [Mass/Vol] 227 mg/dL High 75 - 110 mg/dL [facility] Interpretation and review of laboratory results Abnormal [facility] Glucose [Mass/Vol] 186 mg/dL High 75 - 110 mg/dL [facility] Interpretation and review of laboratory results Abnormal [facility] PROTEIN ELECTROPHORESIS, URI NEon 06-24-2022 P E Interpretation, U ELEVATED PROTEIN CONCENTRATION. MOST SERUM PROTEINS ARE DETECTED IN THIS URINE. USUALLY OBSERVED WITH MARKEDLY INCREASED NON-SELECTIVE GLOMERULAR PERMEABILITY (i.e. SEVERE GLOMERULAR DISEASE), CONTAMINATION OF [facility] Pathologist ELECTRONICALLY SIGNED. KUSUM VILLAFANA M.D. [facility] Protein (U) [Mass/Vol] 187 mg/dL [facility] Specimen Type .Random Urine [facility] Prot. Electrophoresis, Uron 06-24-2022 Pathologist Review: ELECTRONICALLY SIGNED. KUSUM VILLAFANA M.D. Normal [facility] Comment on above: Performed By: #### I FX, URI, C4, PE, FKLLC, C3, PTHNCA #### [facility] [employer] [address] [place] [address] [phone] Yard Switch Operator: Rodrick Jones MD Ur.-Prot.Elect-Inter ELEVATED PROTEIN CONCENTRATION. MOST SERUM PROTEINS ARE DETECTED IN THIS URINE. Normal [facility] Comment on above: Result Comment: USUA LLY OBSERVED WITH MARKEDLY INCREASED NON-SELECTIVE GLOMERULAR PERMEABILITY (i.e. SEVERE GLOMERULAR DISEASE), CONTAMINATION OF URINE WITH BLOOD, OR A COMBINATION OF THESE. A DECREASE IN TUBULAR FUNCTION CANNOT BE RULED OUT. IMMUNOFIXATION IS NEGATIVE FOR MONOCLONAL IMMUNOGLOBULIN. SPECIMEN IS BLOODY. Performed By: #### I FX, URI, C4, PE, FKLLC, C3, PTHNCA #### [employer] [address] [place] [address] [phone] Yard Switch Operator: Rodrick Jones MD Basic Metab w/rfx MGon 06-234 Creatinine [Mass/Vol] 5.25 mg/dL Critically high 0.70-1.20 [facility] Comment on above: Result Comment: Prev ious Alert Value Reported Performed By: #### B MP, CBC #### [facility] [employer] [address] [place] [address] [phone] Yard Switch Operator: Rodrick Jones MD GFR/1.73 sq M.predicted among non-blacks MDRD (S/P/Bld) [Vol rate/Area] 12 mL/min/{1.73_m2} Low >60 [facility] Comment on above: Result Comment: These results [...] Performed By: #### B CECY, CBC #### [address] [address] Yard Switch Operator: Rodrick Jones MD Anion gap [Moles/Vol] 16 mmol/L Normal 9-17 [facility] Comment on above: Performed By: #### B MP, CBC #### [address] [address] Yard Switch Operator: Rodrick Jones MD Calcium [Mass/Vol] 8.8 mg/dL Normal 8.6-10.4 [facility] Comment on above: Performed By: #### B MP, CBC #### [facility] [employer] [address] [place] [address] Yard Switch Operator: Rodrick Jones MD Chloride [Moles/Vol] 100 mmol/L Normal 98-107 [facility] Comment on above: Performed By: #### B MP, CBC #### [facility] [employer] [address] [place] [address] Yard Switch Operator: Rodrick Jones MD CO2 [Moles/Vol] 20 mmol/L Normal 20-31 [facility] Comment on above: Performed By: #### B MP, CBC #### [facility] [employer] [address] [place] [address] Yard Switch Operator: Rodrick Jones MD Glucose [Mass/Vol] 249 mg/dL High 70-99 [facility] Comment on above: Performed By: #### B MP, CBC #### [facility] [address] [place] [address] Yard Switch Operator: Rodrick Jones MD Potassium [Moles/Vol] 4.5 mmol/L Normal 3.7-5.3 [facility] Comment on above: Performed By: #### B MP, CBC #### [facility] [address] [place] [address] Yard Switch Operator: Rodrick Jones MD Sodium [Moles/Vol] 136 mmol/L Normal 135-144 [facility] Comment on above: Performed By: #### B MP, CBC #### [facility] [address] [place] [address] Yard Switch Operator: Rodrick Jones MD Urea nitrogen [Mass/Vol] 53 mg/dL High 8-23 [facility] Comment on above: Performed By: #### B MP, CBC #### [facility] [address] [place] [address] Yard Switch Operator: Rodrick Jones MD Basic Metabolic Panel w/ Ref artis to MGon 06-23-2022 Anion gap [Moles/Vol] 16 mmol/L 9 - 17 mmol/L [facility] [employer] Calcium [Mass/Vol] 8.8 mg/dL 8.6 - 10. 4 mg/dL [facility] [employer] Chloride [Moles/Vol] 100 mmol/L 98 - 10 7 mmol/L [facility] [employer] CO2 [Moles/Vol] 20 mmol/L 20 - 31 mmol/L [facility] Creatinine [Mass/Vol] 5.25 mg/dL Critically high 0.7 0 - 1.20 mg/dL [facility] GFR/1.73 sq M.predicted MDRD (S/P/Bld) [Vol rate/Area] 12 mL/min/{1.73_m2} Low - PINF [facility] Glucose [Mass/Vol] 249 mg/dL High 70 - 99 mg/dL [facility] Interpretation and review of laboratory results Abnormal [facility] Potassium [Moles/Vol] 4.5 mmol/L 3.7 - 5.3 mmol/L [facility] Sodium [Moles/Vol] 136 mmol/L 135 - 144 mmol/L [facility] Urea nitrogen [Mass/Vol] 53 mg/dL High 8 - 23 mg/dL [facility] C-Reactive Proteinon 023 CRP [Mass/Vol] 111.5 mg/L High 0.0-5.0 [facility] Comment on above: Performed By: #### B MP, CBC #### [employer] [address] [place] [address] [phone] Yard Switch Operator: Rodrick Jones MD CRP High sensitivity method [Mass/Vol] 111.5 mg/L High 0.0 - 5.0 mg/L [facility] Interpretation and review of laboratory results Abnormal [facility] CBCon 06-23-2022 Erythrocyte distribution width (RBC) [Ratio] 14.2 % Normal 11.8-14.4 [facility] Comment on above: Performed By: #### B MP, CBC #### [employer] [address] [place] [address] Yard Switch Operator: Rodrick Jones MD Hematocrit (Bld) [Volume fraction] 36.4 % Low 40.7-50.3 [facility] Comment on above: Performed By: #### B MP, CBC #### [employer] [address] [place] [address] [phone] Yard Switch Operator: Rodrick Jones MD Hemoglobin (Bld) [Mass/Vol] 11.7 g/dL Low 13.0-17.0 [facility] Comment on above: Performed By: #### B MP, CBC #### [employer] [address] [place] [address] [phone] Yard Switch Operator: Rodrick Jones MD MCH (RBC) [Entitic mass] 30.5 pg Normal 25.2-33.5 [facility] Comment on above: Performed By: #### B MP, CBC #### [address] [address] Yard Switch Operator: Rodrick Jones MD MCHC (RBC) [Mass/Vol] 32.1 g/dL Normal 28.4-34.8 [facility] Comment on above: Performed By: #### B MP, CBC #### [address] [address] Yard Switch Operator: Rodrick Jones MD MCV (RBC) [Entitic vol] 95.0 fL Normal 82.6-102.9 [facility] Comment on above: Performed By: #### B MP, CBC #### [address] [address] Yard Switch Operator: Rodrick Jones MD NRBC Automated 0.0 per 100 WBC Normal 0.0 [facility] Comment on above: Performed By: #### B MP, CBC #### [address] [address] Yard Switch Operator: Rodrick Jones MD Platelet mean volume (Bld) [Entitic vol] 11.1 fL Normal 8.1-13.5 [facility] Comment on above: Performed By: #### B MP, CBC #### [address] [address] Yard Switch Operator: Rodrick Jones MD Platelets (Bld) [#/Vol] 216 10*3/uL Normal 138-453 [facility] Comment on above: Performed By: #### B MP, CBC #### [address] [address] Yard Switch Operator: Rodrick Jones MD RBC (Bld) [#/Vol] 3.83 10*6/uL Low 4.21-5.77 [facility] Comment on above: Performed By: #### B MP, CBC #### [facility] [address] [place], [place] [phone] Yard Switch Operator: Rodrick Jones MD WBC (Bld) [#/Vol] 9.7 10*3/uL Normal 3.5-11.3 [facility] Comment on above: Performed By: #### B MP, CBC #### [facility] [address] [place], [place] [phone] Yard Switch Operator: Rodrick Jones MD Hematocrit (Bld) [Volume fraction] 36.4 % Low 40.7 - 50.3 % [facility] Hemoglobin (Bld) [Mass/Vol] 11.7 g/dL Low 13.0 - 17.0 g/dL [facility] Interpretation and review of laboratory results Abnormal [facility] MCH (RBC) [Entitic mass] 30.5 pg 25.2 - 33.5 pg [facility] MCHC (RBC) [Mass/Vol] 32.1 g/dL 28.4 - 34.8 g/dL [facility] MCV (RBC) [Entitic vol] 95.0 fL 82.6 - 102.9 fL [facility] NRBC Automated 0.0 0.0 per 100 WBC [facility] Platelet distribution width (Bld) [Ratio] 14.2 % 11.8 - 14.4 % [facility] Platelet mean volume (Bld) [Entitic vol] 11.1 fL 8.1 - 13.5 fL [facility] Platelets (Bld) [#/Vol] 216 10*3/uL [facility] RBC (Bld) [#/Vol] 3.83 10*6/uL Low 4.21 - 5.7 7 m/uL [facility] WBC (Bld) [#/Vol] 9.7 10*3/uL [facility] CT ABDOMEN PELVIS WO CONTRAS Ton 06-23-2022 [...] No pathologically enlarged adenopathy or free fluid. Peritoneum/Retroperit oneum: The aorta is normal caliber with mild [...] perinephric and periureteral stranding suggestive of superimposed infection/inflammatio n. 2. 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 3. Nonobstructing bilateral renal calculi. Interpreted by: Radha Caceres MD Signed by: Radha Caceres MD 06/23/22 Final result Normal [facility] CT ABDOMEN PELVIS WO CONTRAS T Additional Contrast? Noneon 06-23-2022 PN RIS CONSOLIDATED PN RIS CONSOLIDATED [employer] Work Phone: [employer] Work Phone: CT HEAD WO CONTRASTon 2022 CT [...] Radha Caceres MD 06/23/22 Final result Normal [facility] RIS CONSOLIDATED [facility] RIS CONSOLIDATED [facility] [employer] Work Phone: [employer] Work Phone: EKG 12 Leadon 06-23-2022 Atrial Rate 85 BPM [employer] Work Phone: P Thoreau 15 degrees [employer] Work Phone: P-R Interval 190 ms BON [employer] Work Phone: Q-T Interval 382 ms [facility] [employer] Work Phone: QRS Duration 106 ms [facility] Work Phone: QTc Calculation (Bazett) 454 ms [employer] Work Phone: R Thoreau -18 degrees [facility] Work Phone: T Thoreau -11 degrees [facility] [employer] Work Phone: Ventricular Rate 85 BPM [facility] [employer] Work Phone: MHPN STV MUSE [employer] Work Phone: [employer] Work Phone: MHPN STV MUSE [employer] Work Phone: EKG 12 LeadOrdered By: Karely Ewing on 06-23-2022 Atrial Rate 89 BPM [employer] Work Phone: P Thoreau 49 degrees [employer] Work Phone: P-R Interval 178 ms [employer] Work Phone: Q-T Interval 380 ms [employer] Work Phone: QRS Duration 96 ms BON [employer] Work Phone: QTc Calculation (Bazett) 462 ms [facility] [employer] Work Phone: R Thoreau -12 degrees BON [employer] Work Phone: T [place]oreau -6 degrees [employer] [employer] Work Phone: Ventricular Rate 89 BPM [facility] [employer] Work Phone: BON [employer] Work Phone: Electrolyte Panelon 06-24-19 23 Anion gap [Moles/Vol] 14 mmol/L 9 - 17 mmol/L [facility] Chloride [Moles/Vol] 99 mmol/L 98 - 10 7 mmol/L [facility] CO2 [Moles/Vol] 22 mmol/L 20 - 31 mmol/L [facility] Potassium [Moles/Vol] 4.2 mmol/L 3.7 - 5.3 mmol/L [facility] Sodium [Moles/Vol] 135 mmol/L 135 - 144 mmol/L [facility] Electrolyteson 06-23-2022 Anion gap [Moles/Vol] 14 mmol/L Normal 9-17 [facility] Comment on above: Performed By: #### I FX, URI, C4, PE, FKLLC, C3, PTHNCA #### [address] [address] [employer] Operator: Rodrick Jones MD Chloride [Moles/Vol] 99 mmol/L Normal 98-107 [facility] Comment on above: Performed By: #### I FX, URI, C4, PE, FKLLC, C3, PTHNCA #### [facility] [address] [place] [address] Yard Switch Operator: Rodrick Jones MD CO2 [Moles/Vol] 22 mmol/L Normal 20-31 [facility] Comment on above: Performed By: #### I FX, URI, C4, PE, FKLLC, C3, PTHNCA #### [facility] [employer] [address] [place] [address] Yard Switch Operator: Rodrick Jones MD Potassium [Moles/Vol] 4.2 mmol/L Normal 3.7-5.3 [facility] Comment on above: Performed By: #### I FX, URI, C4, PE, FKLLC, C3, PTHNCA #### [facility] [employer] [address] [place] [address] [phone] Yard Switch Operator: Rodrick Jones MD Sodium [Moles/Vol] 135 mmol/L Normal 135-144 [facility] Comment on above: Performed By: #### I FX, URI, C4, PE, FKLLC, C3, PTHNCA #### [place] [place] [address] Yard [employer] Operator: Rodrick Jones MD Immunofixation,Urineon 06-23 Protein (U) [Mass/Vol] 187 mg/dL Normal [facility] Comment on above: Performed By: #### C RP, RENP, CBC, MG #### [facility] [place] [address] Yard Switch Operator: Rodrick Jones MD Type of Specimen .Random Urine Normal [facility] Comment on above: Performed By: #### C RP, RENP, CBC, MG #### [facility] [employer] [address] [place] [address] Yard Switch Operator: Rodrick Jones MD Magnesiumon 06-23-2022 Magnesium [Mass/Vol] 1.8 mg/dL Normal 1.6-2.6 [facility] Comment on above: Performed By: #### B MP, CBC #### [facility] [employer] [facility] [place] [address] Yard Switch Operator: Rodrick Jones MD Magnesium [Mass/Vol] 1.8 mg/dL 1.6 - 2 .6 mg/dL [facility] No Panel Informationon 06-23 [facility] POC Glucose Fingerstickon Glucose [Mass/Vol] 238 mg/dL High 75 - 110 mg/dL [facility] Interpretation and review of laboratory results Abnormal [facility] Glucose [Mass/Vol] 242 mg/dL High 75 - 110 mg/dL [facility] Interpretation and review of laboratory results Abnormal [facility] Glucose [Mass/Vol] 237 mg/dL High 75 - 110 mg/dL [facility] Interpretation and review of laboratory results Abnormal [facility] Glucose [Mass/Vol] 240 mg/dL High 75 - 110 mg/dL [facility] Interpretation and review of laboratory results Abnormal [facility] Glucose [Mass/Vol] 239 mg/dL High 75 - 110 mg/dL [facility] Interpretation and review of laboratory results Abnormal [facility] Basic Metabolic Panelon 06-09 Anion gap [Moles/Vol] 13 mmol/L 9 - 17 mmol/L [facility] Calcium [Mass/Vol] 8.5 mg/dL Low 8.6 - 10. 4 mg/dL [facility] Chloride [Moles/Vol] 99 mmol/L 98 - 10 7 mmol/L [facility] CO2 [Moles/Vol] 21 mmol/L 20 - 31 mmol/L [facility] Creatinine [Mass/Vol] 5.19 mg/dL Critically high 0.7 0 - 1.20 mg/dL [facility] GFR/1.73 sq M.predicted MDRD (S/P/Bld) [Vol rate/Area] 12 mL/min/{1.73_m2} Low - PINF [facility] Glucose [Mass/Vol] 280 mg/dL High 70 - 99 mg/dL [facility] Interpretation and review of laboratory results Abnormal [facility] Potassium [Moles/Vol] 4.5 mmol/L 3.7 - 5.3 mmol/L [facility] Sodium [Moles/Vol] 133 mmol/L Low 135 - 144 mmol/L [facility] Urea nitrogen [Mass/Vol] 53 mg/dL High 8 - 23 mg/dL [facility] Anion gap [Moles/Vol] 15 mmol/L 9 - 17 mmol/L [facility] Calcium [Mass/Vol] 8.5 mg/dL Low 8.6 - 10. 4 mg/dL [facility] Chloride [Moles/Vol] 98 mmol/L 98 - 10 7 mmol/L [facility] CO2 [Moles/Vol] 20 mmol/L 20 - 31 mmol/L [facility] Creatinine [Mass/Vol] 5.19 mg/dL Critically high 0.7 0 - 1.20 mg/dL [facility] GFR/1.73 sq M.predicted MDRD (S/P/Bld) [Vol rate/Area] 12 mL/min/{1.73_m2} Low - PINF [facility] Glucose [Mass/Vol] 284 mg/dL High 70 - 99 mg/dL [facility] Interpretation and review of laboratory results Abnormal [facility] Potassium [Moles/Vol] 4.3 mmol/L 3.7 - 5.3 mmol/L [facility] Sodium [Moles/Vol] 133 mmol/L Low 135 - 144 mmol/L [facility] Urea nitrogen [Mass/Vol] 53 mg/dL High 8 - 23 mg/dL [facility] Basic Metabolic Profon 06-22 Creatinine [Mass/Vol] 5.19 mg/dL Critically high 0.70-1.20 [facility] Comment on above: Result Comment: Prev ious Alert Value Reported Performed By: #### B MP, CBC #### [employer] [facility] [place] [address] Yard Switch Operator: Rodrick Jones MD GFR/1.73 sq M.predicted among non-blacks MDRD (S/P/Bld) [Vol rate/Area] 12 mL/min/{1.73_m2} Low >60 [facility] Comment on above: Result Comment: These results [...] Performed By: #### B MP, CBC #### [employer] [address] [place] [address] Yard Switch Operator: Rodrick Jones MD Anion gap [Moles/Vol] 13 mmol/L Normal 9-17 [facility] Comment on above: Performed By: #### B MP, CBC #### [address] [address] [employer] Switch Operator: Rodrick Jones MD Calcium [Mass/Vol] 8.5 mg/dL Low 8.6-10.4 [facility] Comment on above: Performed By: #### B MP, CBC #### [address] [address] Yard Switch Operator: Rodrick Jones MD Chloride [Moles/Vol] 99 mmol/L Normal 98-107 [facility] Comment on above: Performed By: #### B MP, CBC #### [address] [address] Yard Switch Operator: Rodrick Jones MD CO2 [Moles/Vol] 21 mmol/L Normal 20-31 [facility] Comment on above: Performed By: #### B MP, CBC #### [address] [address] [employer] Operator: Rodrick Jones MD Glucose [Mass/Vol] 280 mg/dL High 70-99 [facility] Comment on above: Performed By: #### B MP, CBC #### [address] [address] Yard Switch Operator: Rodrick Jones MD Potassium [Moles/Vol] 4.5 mmol/L Normal 3.7-5.3 [facility] Comment on above: Performed By: #### B MP, CBC #### [address] [address] Yard Switch Operator: Rodrick Jones MD Sodium [Moles/Vol] 133 mmol/L Low 135-144 [facility] Comment on above: Performed By: #### B MP, CBC #### [facility] [employer] [address] [place] [address] [phone] Yard Switch Operator: Rodrick Jones MD Urea nitrogen [Mass/Vol] 53 mg/dL High 8-23 [facility] Comment on above: Performed By: #### B MP, CBC #### [address] [place] [address] Yard Switch Operator: Rodrick Jones MD Creatinine [Mass/Vol] 5.19 mg/dL Critically high 0.70-1.20 [facility] Comment on above: Result Comment: Prev ious Alert Value Reported Performed By: #### C RP, RENP, CBC, MG #### [address] [address] [employer] Switch Operator: Rodrick Jones MD GFR/1.73 sq M.predicted among non-blacks MDRD (S/P/Bld) [Vol rate/Area] 12 mL/min/{1.73_m2} Low >60 [facility] Comment on above: Result Comment: These results [...] #### C RP, RENP, CBC, MG #### [address] [address] [employer] Operator: Rodrick Jones MD Anion gap [Moles/Vol] 15 mmol/L Normal 9-17 [facility] Comment on above: Performed By: #### C RP, RENP, CBC, MG #### [address] [address] [employer] Switch Operator: Rodrick Jones MD Calcium [Mass/Vol] 8.5 mg/dL Low 8.6-10.4 [facility] Comment on above: Performed By: #### C RP, RENP, CBC, MG #### [facility] [address] [place] [address] Yard [employer] Operator: Rodrick Jones MD Chloride [Moles/Vol] 98 mmol/L Normal 98-107 [facility] Comment on above: Performed By: #### C RP, RENP, CBC, MG #### [facility] [address] [place] [address] Yard Switch Operator: Rodrick Jones MD CO2 [Moles/Vol] 20 mmol/L Normal 20-31 [facility] Comment on above: Performed By: #### C RP, RENP, CBC, MG #### [facility] [employer] [address] [place] [address] Yard Switch Operator: Rodrick Jones MD Glucose [Mass/Vol] 284 mg/dL High 70-99 [facility] Comment on above: Performed By: #### C RP, RENP, CBC, MG #### [facility] [address] [place] [address] Yard Switch Operator: Rodrick Jones MD Potassium [Moles/Vol] 4.3 mmol/L Normal 3.7-5.3 [facility] Comment on above: Performed By: #### C RP, RENP, CBC, MG #### [facility] [employer] [address] [place] [address] Yard Switch Operator: Rodrick Jones MD Sodium [Moles/Vol] 133 mmol/L Low 135-144 [facility] Comment on above: Performed By: #### C RP, RENP, CBC, MG #### [facility] [address] [place] [address] Yard Switch Operator: Rodrick Jones MD Urea nitrogen [Mass/Vol] 53 mg/dL High 8-23 [facility] Comment on above: Performed By: #### C RP, RENP, CBC, MG #### [facility] [address] [place] [address] [phone] Yard Switch Operator: Rodrick Jones MD GFR/1.73 sq M.predicted among non-blacks MDRD (S/P/Bld) [Vol rate/Area] 12 mL/min/{1.73_m2} Low >60 [facility] Comment on above: Result Comment: These results [...] #### C RP, RENP, CBC, MG #### [address] [phone] Yard Switch Operator: Rodrick Jones MD CBCon 06-22-2022 Erythrocyte distribution width (RBC) [Ratio] 14.0 % Normal 11.8-14.4 [facility] Comment on above: Performed By: #### B MP, CBC #### [address] [address] Yard Switch Operator: Rodrick Jones MD Hematocrit (Bld) [Volume fraction] 36.9 % Low 40.7-50.3 [facility] Comment on above: Performed By: #### B MP, CBC #### [facility] [employer] [address] [place] [address] Yard Switch Operator: Rodrick Jones MD Hemoglobin (Bld) [Mass/Vol] 12.0 g/dL Low 13.0-17.0 [facility] Comment on above: Performed By: #### B MP, CBC #### [facility] [employer] [address] [place] [address] [phone] Yard Switch Operator: Rodrick Jones MD MCH (RBC) [Entitic mass] 30.5 pg Normal 25.2-33.5 [facility] Comment on above: Performed By: #### B MP, CBC #### [address] [address] Yard Switch Operator: Rodrick Jones MD MCHC (RBC) [Mass/Vol] 32.5 g/dL Normal 28.4-34.8 [facility] Comment on above: Performed By: #### B MP, CBC #### [address] [address] Yard Switch Operator: Rodrick Jones MD MCV (RBC) [Entitic vol] 93.9 fL Normal 82.6-102.9 [facility] Comment on above: Performed By: #### B MP, CBC #### [address] [address] Yard Switch Operator: Rodrick Jones MD NRBC Automated 0.0 per 100 WBC Normal 0.0 [facility] Comment on above: Performed By: #### B MP, CBC #### [address] [address] Yard Switch Operator: Rodrick Jones MD Platelet mean volume (Bld) [Entitic vol] 10.9 fL Normal 8.1-13.5 [facility] Comment on above: Performed By: #### B MP, CBC #### [address] [address] Yard Switch Operator: Rodrick Jones MD Platelets (Bld) [#/Vol] 163 10*3/uL Normal 138-453 [facility] Comment on above: Performed By: #### B MP, CBC #### [address] [address] Yard Switch Operator: Rodrick Jones MD RBC (Bld) [#/Vol] 3.93 10*6/uL Low 4.21-5.77 [facility] Comment on above: Performed By: #### B MP, CBC #### [employer] [address] [place] [address] Yard Switch Operator: Rodrick Jones MD WBC (Bld) [#/Vol] 8.7 10*3/uL Normal 3.5-11.3 [facility] Comment on above: Performed By: #### B MP, CBC #### [facility] [address] [place], [place] [phone] Yard Switch Operator: Rodrick Jones MD Hematocrit (Bld) [Volume fraction] 36.9 % Low 40.7 - 50.3 % [facility] Hemoglobin (Bld) [Mass/Vol] 12.0 g/dL Low 13.0 - 17.0 g/dL [facility] Interpretation and review of laboratory results Abnormal [facility] MCH (RBC) [Entitic mass] 30.5 pg 25.2 - 33.5 pg [facility] MCHC (RBC) [Mass/Vol] 32.5 g/dL 28.4 - 34.8 g/dL [facility] MCV (RBC) [Entitic vol] 93.9 fL 82.6 - 102.9 fL [facility] NRBC Automated 0.0 0.0 per 100 WBC [facility] Platelet distribution width (Bld) [Ratio] 14.0 % 11.8 - 14.4 % [facility] Platelet mean volume (Bld) [Entitic vol] 10.9 fL 8.1 - 13.5 fL [facility] Platelets (Bld) [#/Vol] 163 10*3/uL [facility] RBC (Bld) [#/Vol] 3.93 10*6/uL Low 4.21 - 5.7 7 m/uL [facility] WBC (Bld) [#/Vol] 8.7 10*3/uL [facility] Cult,Urineon 06-22-2022 Cult,Urine Specimen Description .CLEAN CATCH URINE Culture NO SIGNIFICANT GROWTH Identified as : VIRIDANS STREPTOCOCCUS GROUP <[id number] CFU/ML Report Status FINAL 06/22/2022 Normal [facility] Comment on above: Performed By: #### B MP, CBC #### [facility] [place], [place] [phone] Yard Switch Operator: Rodrick Jones MD Culture, Urineon 06-22-2022 Microorganism identified Cx Nom (Unsp spec) NO SIGNIFICANT GROWTH Identified as : VIRIDANS STREPTOCOCCUS GROUP <[id number] CFU/ML [facility] Specimen Description .CLEAN CATCH URINE [facility] Eosinophils, Urineon 023 Eosinophils, Urine NONE SEEN Normal NSN [facility] Comment on above: Performed By: #### I FX, URI, C4, PE, FKLLC, C3, PTHNCA #### [employer] [address] [place] [address] [phone] Yard Switch Operator: Rodrick Jones MD Magnesiumon 06-22-2022 Magnesium [Mass/Vol] 1.8 mg/dL Normal 1.6-2.6 [facility] Comment on above: Performed By: #### B MP, CBC #### [employer] [facility] [place], [place] [phone] Yard Switch Operator: Rodrick Jones MD Magnesium [Mass/Vol] 1.8 mg/dL 1.6 - 2 .6 mg/dL [facility] Magnesium [Mass/Vol] 1.8 mg/dL Normal 1.6-2.6 [facility] Comment on above: Performed By: #### C RP, RENP, CBC, MG #### [facility] [address] [place], [place] [phone] Yard Switch Operator: Rodrick Jones MD Magnesium [Mass/Vol] 1.8 mg/dL 1.6 - 2 .6 mg/dL [facility] No Panel Informationon 06-22 [facility] POC Glucose Fingerstickon Glucose [Mass/Vol] 292 mg/dL High 75 - 110 mg/dL [facility] Interpretation and review of laboratory results Abnormal [facility] Glucose [Mass/Vol] 250 mg/dL High 75 - 110 mg/dL [facility] Interpretation and review of laboratory results Abnormal [facility] Glucose [Mass/Vol] 270 mg/dL High 75 - 110 mg/dL [facility] Interpretation and review of laboratory results Abnormal [facility] Glucose [Mass/Vol] 248 mg/dL High 75 - 110 mg/dL [facility] Interpretation and review of laboratory results Abnormal [facility] Phosphoruson 06-22-2022 Interpretation and review of laboratory results Abnormal [facility] Phosphate [Mass/Vol] 5.2 mg/dL High 2.5 - 4 .5 mg/dL [facility] Phosphorus, Inorg.on 023 Phosphorus, Inorg. 5.2 mg/dL High 2.5-4.5 [facility] Comment on above: Performed By: #### C RP, RENP, CBC, MG #### [facility] [employer] [address] [place] [address] Yard Switch Operator: Rodrick Jones MD Prot. Electrophoresis, Uron 06-22-2022 Total Protein Conc. 187 mg/dL Normal [facility] Comment on above: Performed By: #### I FX, URI, C4, PE, FKLLC, C3, PTHNCA #### [facility] [employer] [facility] [place], [place] [phone] Yard Switch Operator: Rodrick Jones MD Basic Metabolic Panelon 06-09 Anion gap [Moles/Vol] 15 mmol/L 9 - 17 mmol/L [facility] Calcium [Mass/Vol] 8.2 mg/dL Low 8.6 - 10. 4 mg/dL [facility] Chloride [Moles/Vol] 96 mmol/L Low 98 - 10 7 mmol/L [facility] CO2 [Moles/Vol] 18 mmol/L Low 20 - 31 mmol/L [facility] GFR/1.73 sq M.predicted MDRD (S/P/Bld) [Vol rate/Area] 12 mL/min/{1.73_m2} Low - PINF [facility] Glucose [Mass/Vol] 348 mg/dL High 70 - 99 mg/dL [facility] Interpretation and review of laboratory results Abnormal [facility] Potassium [Moles/Vol] 4.4 mmol/L 3.7 - 5.3 mmol/L [facility] Sodium [Moles/Vol] 129 mmol/L Low 135 - 144 mmol/L [facility] Urea nitrogen [Mass/Vol] 50 mg/dL High 8 - 23 mg/dL [facility] Anion gap [Moles/Vol] 15 mmol/L 9 - 17 mmol/L [facility] Calcium [Mass/Vol] 8.1 mg/dL Low 8.6 - 10. 4 mg/dL [facility] Chloride [Moles/Vol] 94 mmol/L Low 98 - 10 7 mmol/L [facility] CO2 [Moles/Vol] 17 mmol/L Low 20 - 31 mmol/L [facility] Creatinine [Mass/Vol] 4.7 mg/dL High 0.70 - 1.20 mg/dL [facility] [employer] GFR/1.73 sq M.predicted MDRD (S/P/Bld) [Vol rate/Area] 13 mL/min/{1.73_m2} Low - PINF [facility] Glucose [Mass/Vol] 380 mg/dL High 70 - 99 mg/dL [facility] Potassium [Moles/Vol] 4.3 mmol/L 3.7 - 5.3 mmol/L [facility] Sodium [Moles/Vol] 126 mmol/L Low 135 - 144 mmol/L [facility] Urea nitrogen [Mass/Vol] 50 mg/dL High 8 - 23 mg/dL [facility] Basic Metabolic Profon 06-21 Anion gap [Moles/Vol] 15 mmol/L Normal 9-17 [facility] Comment on above: Performed By: #### C RP, RENP, CBC, MG #### [employer] [facility] [place] [address] Yard Switch Operator: Rodrick Jones MD Calcium [Mass/Vol] 8.2 mg/dL Low 8.6-10.4 [facility] Comment on above: Performed By: #### C RP, RENP, CBC, MG #### [facility] [address] [place] [address] Yard Switch Operator: Rodrick Jones MD Chloride [Moles/Vol] 96 mmol/L Low 98-107 [facility] Comment on above: Performed By: #### C RP, RENP, CBC, MG #### [facility] [address] [place] [address] Yard Switch Operator: Rodrick Jones MD CO2 [Moles/Vol] 18 mmol/L Low 20-31 [facility] Comment on above: Performed By: #### C RP, RENP, CBC, MG #### [facility] [address] [place] [address] Yard Switch Operator: Rodrick Jones MD Glucose [Mass/Vol] 348 mg/dL High 70-99 [facility] Comment on above: Performed By: #### C RP, RENP, CBC, MG #### [facility] [address] [place] [address] Yard Switch Operator: Rodrick Jones MD Potassium [Moles/Vol] 4.4 mmol/L Normal 3.7-5.3 [facility] Comment on above: Performed By: #### C RP, RENP, CBC, MG #### [facility] [address] [place] [address] Yard Switch Operator: Rodrick Jones MD Sodium [Moles/Vol] 129 mmol/L Low 135-144 [facility] Comment on above: Performed By: #### C RP, RENP, CBC, MG #### [facility] [address] [place] [address] Yard Switch Operator: Rodrick Jones MD Urea nitrogen [Mass/Vol] 50 mg/dL High 8-23 [facility] Comment on above: Performed By: #### C RP, RENP, CBC, MG #### [facility] [employer] [address] [place] [address] Yard Switch Operator: Rodrick Jones MD Creatinine [Mass/Vol] 5.13 mg/dL Critically high 0.70-1.20 [facility] Comment on above: Performed By: #### C RP, RENP, CBC, MG #### [facility] [employer] [address] [place] [address] Yard Switch Operator: Rodrick Jones MD Anion gap [Moles/Vol] 15 mmol/L Normal 9-17 [facility] Comment on above: Performed By: #### I FX, URI, C4, PE, FKLLC, C3, PTHNCA #### [address] [address] Yard Switch Operator: Rodrick Jones MD Calcium [Mass/Vol] 8.1 mg/dL Low 8.6-10.4 [facility] Comment on above: Performed By: #### I FX, URI, C4, PE, FKLLC, C3, PTHNCA #### [address] [address] Yard Switch Operator: Rodrick Jones MD Chloride [Moles/Vol] 94 mmol/L Low 98-107 [facility] Comment on above: Performed By: #### I FX, URI, C4, PE, FKLLC, C3, PTHNCA #### [address] [address] Yard Switch Operator: Rodrick Jones MD CO2 [Moles/Vol] 17 mmol/L Low 20-31 [facility] Comment on above: Performed By: #### I FX, URI, C4, PE, FKLLC, C3, PTHNCA #### [facility] [employer] [address] [place] [address] Yard Switch Operator: Rodrick Jones MD Creatinine [Mass/Vol] 4.70 mg/dL High 0.70-1.20 [facility] Comment on above: Performed By: #### I FX, URI, C4, PE, FKLLC, C3, PTHNCA #### [address] [address] Yard Switch Operator: Rodrick Jones MD GFR/1.73 sq M.predicted among non-blacks MDRD (S/P/Bld) [Vol rate/Area] 13 mL/min/{1.73_m2} Low >60 [facility] Comment on above: Result Comment: These results [...] URI, C4, PE, FKLLC, C3, PTHNCA #### [address] [address] Yard Switch Operator: Rodrick Jones MD Glucose [Mass/Vol] 380 mg/dL High 70-99 [facility] Comment on above: Performed By: #### I FX, URI, C4, PE, FKLLC, C3, PTHNCA #### [address] [address] Yard Switch Operator: Rodrick Jones MD Potassium [Moles/Vol] 4.3 mmol/L Normal 3.7-5.3 [facility] Comment on above: Performed By: #### I FX, URI, C4, PE, FKLLC, C3, PTHNCA #### [address] [address] Yard Switch Operator: Rodrick Jones MD Sodium [Moles/Vol] 126 mmol/L Low 135-144 [facility] Comment on above: Performed By: #### I FX, URI, C4, PE, FKLLC, C3, PTHNCA #### [address] [phone] Yard Switch Operator: Rodrick Jones MD Urea nitrogen [Mass/Vol] 50 mg/dL High 8-23 [facility] Comment on above: Performed By: #### I FX, URI, C4, PE, FKLLC, C3, PTHNCA #### [address] [phone] Yard Switch Operator: Rodrick Jones MD C-Reactive Proteinon 023 CRP [Mass/Vol] 163.6 mg/L High 0.0-5.0 [facility] Comment on above: Performed By: #### C RP, RENP, CBC, MG #### [address] [address] Yard Switch Operator: Rodrick Jones MD CRP High sensitivity method [Mass/Vol] 163.6 mg/L High 0.0 - 5.0 mg/L [facility] Interpretation and review of laboratory results Abnormal [facility] C3on 06-21-2022 C3 167 mg/dL Normal 90-180 [facility] Comment on above: Performed By: #### I FX, URI, C4, PE, FKLLC, C3, PTHNCA #### [address] [phone] Yard Switch Operator: Rodrick Jones MD C3 Complementon 06-21-2022 Complement C3 167 mg/dL 90 - 180 mg/dL [facility] C4on 06-21-2022 C4 58 mg/dL High 10-40 [facility] Comment on above: Performed By: #### I FX, URI, C4, PE, FKLLC, C3, PTHNCA #### [address] [address] Yard Switch Operator: Rodrick Jones MD C4 Complementon 06-21-2022 Complement C4 58 mg/dL High 10 - 40 mg/dL [facility] CBCon 06-21-2022 Erythrocyte distribution width (RBC) [Ratio] 13.7 % Normal 11.8-14.4 [facility] Comment on above: Performed By: #### C RP, RENP, CBC, MG #### [facility] [employer] [address] [place] [address] Yard Switch Operator: Rodrick Jones MD Hematocrit (Bld) [Volume fraction] 43.7 % Normal 40.7-50.3 [facility] Comment on above: Performed By: #### C RP, RENP, CBC, MG #### [facility] [employer] [address] [place] [address] Yard Switch Operator: Rodrick Jones MD Hemoglobin (Bld) [Mass/Vol] 15.2 g/dL Normal 13.0-17.0 [facility] Comment on above: Performed By: #### C RP, RENP, CBC, MG #### [facility] [employer] [address] [place] [address] Yard [employer] Operator: Rodrick Jones MD MCH (RBC) [Entitic mass] 30.9 pg Normal 25.2-33.5 [facility] Comment on above: Performed By: #### C RP, RENP, CBC, MG #### [facility] [employer] [address] [place] [address] Yard Switch Operator: Rodrick Jones MD MCHC (RBC) [Mass/Vol] 34.8 g/dL Normal 28.4-34.8 [facility] Comment on above: Performed By: #### C RP, RENP, CBC, MG #### [facility] [employer] [address] [place] [address] Yard Switch Operator: Rodrick Jones MD MCV (RBC) [Entitic vol] 88.8 fL Normal 82.6-102.9 [facility] Comment on above: Performed By: #### C RP, RENP, CBC, MG #### [address] [address] [employer] Operator: Rodrick Jones MD NRBC Automated 0.0 per 100 WBC Normal 0.0 [facility] Comment on above: Performed By: #### C RP, RENP, CBC, MG #### [address] [address] Yard Switch Operator: Rodrick Jones MD Platelet mean volume (Bld) [Entitic vol] 10.4 fL Normal 8.1-13.5 [facility] Comment on above: Performed By: #### C RP, RENP, CBC, MG #### [address] [address] [employer] Operator: Rodrick Jones MD Platelets (Bld) [#/Vol] 147 10*3/uL Normal 138-453 [facility] Comment on above: Performed By: #### C RP, RENP, CBC, MG #### [address] [address] [employer] Operator: Rodrick Jones MD RBC (Bld) [#/Vol] 4.92 10*6/uL Normal 4.21-5.77 [facility] Comment on above: Performed By: #### C RP, RENP, CBC, MG #### [address] [address] Yard Switch Operator: Rodrick Jones MD WBC (Bld) [#/Vol] 8.0 10*3/uL Normal 3.5-11.3 [facility] Comment on above: Performed By: #### C RP, RENP, CBC, MG #### [facility] [address] [place] [address], [place] [phone] [employer] Operator: Rodrick Jones MD Hematocrit (Bld) [Volume fraction] 43.7 % 40.7 - 50.3 % [facility] Hemoglobin (Bld) [Mass/Vol] 15.2 g/dL 13.0 - 17.0 g/dL [facility] MCH (RBC) [Entitic mass] 30.9 pg 25.2 - 33.5 pg [facility] MCHC (RBC) [Mass/Vol] 34.8 g/dL 28.4 - 34.8 g/dL [facility] MCV (RBC) [Entitic vol] 88.8 fL 82.6 - 102.9 fL [facility] NRBC Automated 0.0 0.0 per 100 WBC [facility] Platelet distribution width (Bld) [Ratio] 13.7 % 11.8 - 14.4 % [facility] Platelet mean volume (Bld) [Entitic vol] 10.4 fL 8.1 - 13.5 fL [facility] Platelets (Bld) [#/Vol] 147 10*3/uL [facility] RBC (Bld) [#/Vol] 4.92 10*6/uL 4.21 - 5.7 7 m/uL [facility] WBC (Bld) [#/Vol] 8.0 10*3/uL [facility] CREATININE, RANDOM URINEon 0 06-21-2022 Creatinine, Ur 99.0 mg/dL 39.0 - 259.0 mg/dL [facility] Creatinine,Random Uron 06-21 Creatinine [Mass/Vol] 99.0 mg/dL Normal 39.0-259.0 [facility] Comment on above: Performed By: #### I FX, URI, C4, PE, FKLLC, C3, PTHNCA #### [facility] [address] [place] [address] Yard Switch Operator: Rodrick Jones MD EKG 12 LeadOrdered By: Unkno wn Result on 06-21-2022 Atrial Rate 91 BPM [facility] P Thoreau 59 degrees [facility] P-R Interval 186 ms [facility] Q-T Interval 348 ms [facility] QRS Duration 92 ms [facility] QTc Calculation (Bazett) 428 ms [facility] R Thoreau -22 degrees [facility] T Thoreau 8 degrees [facility] Ventricular Rate 91 BPM [facility] EKG 12 Leadon 06-21-[address] M[address] [facility] Work Phone: EOSINOPHILS, URINEon 023 Eosinophil, Ur NONE SEEN NONE SEEN [facility] Hepatitis Acute [facility] 06-21 Hep A Ab,IgM Non-Reactive Normal [facility] Comment on above: Performed By: #### I FX, URI, C4, PE, FKLLC, C3, PTHNCA #### [facility] [employer] [address] [place] [address] Yard [employer] Operator: Rodrick Jones MD Hep B Core Ab,IgM Non-Reactive Normal [facility] Comment on above: Performed By: #### I FX, URI, C4, PE, FKLLC, C3, PTHNCA #### [facility] [employer] [address] [place] [address] Yard [employer] Operator: Rodrick Jones MD Hep B Surf Ag Non-Reactive Normal [facility] Comment on above: Performed By: #### I FX, URI, C4, PE, FKLLC, C3, PTHNCA #### [facility] [employer] [address] [place] [address] Yard Switch Operator: Rodrick Jones MD Hep C Ab Non-Reactive Normal [facility] Comment on above: Result Comment: The [...] URI, C4, PE, FKLLC, C3, PTHNCA #### [employer] [address] [place] [address] Yard Switch Operator: Rodrick Jones MD Hepatitis Panel, Acuteon HAV IgM Ql (S) Non-Reactive NONREACTIVE [facility] HBV core IgM Ql (S) Non-Reactive NONREACTIVE [facility] HBV surface Ag Ql (S) Non-Reactive NONREACTIVE [facility] HCV Ab Ql (S) Non-Reactive NONREACTIVE [facility] Magnesiumon 06-21-2022 Magnesium [Mass/Vol] 1.7 mg/dL Normal 1.6-2.6 [facility] Comment on above: Performed By: #### C RP, RENP, CBC, MG #### [employer] [address] [place] [address] Yard Switch Operator: Rodrick Jones MD Magnesium [Mass/Vol] 1.7 mg/dL 1.6 - 2 .6 mg/dL [facility] No Panel Informationon 06-21 [facility] Interpretation and review of laboratory results Abnormal [facility] OSMOLALITY, URINEon 06-22-19 23 Osmolality, Ur 361 [facility] Osmolality, Urineon 06-22-19 23 Osmolality - Urine 361 mOsm/kg Normal 80-1300 [facility] Comment on above: Performed By: #### I FX, URI, C4, PE, FKLLC, C3, PTHNCA #### [employer] [address] [place] [address] Yard Switch Operator: Rodrick Jones MD POC Glucose Fingerstickon Glucose [Mass/Vol] 326 mg/dL High 75 - 110 mg/dL [facility] Interpretation and review of laboratory results Abnormal [facility] Glucose [Mass/Vol] 330 mg/dL High 75 - 110 mg/dL [facility] Interpretation and review of laboratory results Abnormal [facility] Glucose [Mass/Vol] 273 mg/dL High 75 - 110 mg/dL [facility] Interpretation and review of laboratory results Abnormal [facility] Glucose [Mass/Vol] 248 mg/dL High 75 - 110 mg/dL [facility] Interpretation and review of laboratory results Abnormal [facility] POTASSIUM, URINE, RANDOMon 0 06-21-2022 Potassium, Ur 19.1 mmol/L [facility] Potassium,Random Uron 2022 Potassium [Moles/Vol] 19.1 mmol/L Normal [facility] Comment on above: Result Comment: No n ormal range established. Performed By: #### I FX, URI, C4, PE, FKLLC, C3, PTHNCA #### [address] [phone] [employer] Operator: Rodrick Jones MD Prot. Electrophoresis, Uron 06-21-2022 Type of Specimen .Random Urine Normal [facility] Comment on above: Performed By: #### I FX, URI, C4, PE, FKLLC, C3, PTHNCA #### [address] [phone] Yard Switch Operator: Rodrick Jones MD Renal Function Panelon 06-21 Albumin [Mass/Vol] 3.0 g/dL Low 3.5-5.2 [facility] Comment on above: Performed By: #### C RP, RENP, CBC, MG #### [address] [address] [employer] Operator: Rodrick Jones MD Anion gap [Moles/Vol] 17 mmol/L Normal 9-17 [facility] Comment on above: Performed By: #### C RP, RENP, CBC, MG #### [facility] [place] [address] Yard Switch Operator: Rodrick Jones MD Calcium [Mass/Vol] 8.6 mg/dL Normal 8.6-10.4 [facility] Comment on above: Performed By: #### C RP, RENP, CBC, MG #### [facility] [address] [place] [address] Yard Switch Operator: Rodrick Jones MD Chloride [Moles/Vol] 93 mmol/L Low 98-107 [facility] Comment on above: Performed By: #### C RP, RENP, CBC, MG #### [facility] [address] [place] [address] Yard Switch Operator: Rodrick Jones MD CO2 [Moles/Vol] 16 mmol/L Low 20-31 [facility] Comment on above: Performed By: #### C RP, RENP, CBC, MG #### [facility] [address] [place] [address] Yard Switch Operator: Rodrick Jones MD Creatinine [Mass/Vol] 4.50 mg/dL High 0.70-1.20 [facility] Comment on above: Performed By: #### C RP, RENP, CBC, MG #### [facility] [address] [place] [address] Yard [employer] Operator: Rodrick Jones MD GFR/1.73 sq M.predicted among non-blacks MDRD (S/P/Bld) [Vol rate/Area] 14 mL/min/{1.73_m2} Low >60 [facility] Comment on above: Result Comment: These results [...] #### C RP, RENP, CBC, MG #### [facility] [facility] [address] [place] [address] Yard Switch Operator: Rodrick Jones MD Glucose [Mass/Vol] 283 mg/dL High 70-99 [facility] Comment on above: Performed By: #### C RP, RENP, CBC, MG #### [facility] [address] [place] [address] Yard Switch Operator: Rodrick Jones MD Phosphorus, Inorg. 4.1 mg/dL Normal 2.5-4.5 [facility] Comment on above: Performed By: #### C RP, RENP, CBC, MG #### [facility] [employer] [address] [place] [address] Yard Switch Operator: Rodrick Jones MD Potassium [Moles/Vol] 5.1 mmol/L Normal 3.7-5.3 [facility] Comment on above: Performed By: #### C RP, RENP, CBC, MG #### [facility] [address] [place] [address] Yard Switch Operator: Rodrick Jones MD Sodium [Moles/Vol] 126 mmol/L Low 135-144 [facility] Comment on above: Performed By: #### C RP, RENP, CBC, MG #### [facility] [address] [place] [address] Yard Switch Operator: Rodrick Jones MD Urea nitrogen [Mass/Vol] 51 mg/dL High 8-23 [facility] Comment on above: Performed By: #### C RP, RENP, CBC, MG #### [facility] [address] [place] [address] Yard Switch Operator: Rodrick Jones MD Albumin [Mass/Vol] 3 g/dL Low 3.5 - 5.2 g/dL [facility] Anion gap [Moles/Vol] 17 mmol/L 9 - 17 mmol/L [facility] Calcium [Mass/Vol] 8.6 mg/dL 8.6 - 10. 4 mg/dL [facility] Chloride [Moles/Vol] 93 mmol/L Low 98 - 10 7 mmol/L [facility] CO2 [Moles/Vol] 16 mmol/L Low 20 - 31 mmol/L [facility] Creatinine [Mass/Vol] 4.5 mg/dL High 0.70 - 1.20 mg/dL [facility] GFR/1.73 sq M.predicted MDRD (S/P/Bld) [Vol rate/Area] 14 mL/min/{1.73_m2} Low - PINF [facility] Glucose [Mass/Vol] 283 mg/dL High 70 - 99 mg/dL [facility] Interpretation and review of laboratory results Abnormal [facility] Phosphate [Mass/Vol] 4.1 mg/dL 2.5 - 4 .5 mg/dL [facility] Potassium [Moles/Vol] 5.1 mmol/L 3.7 - 5.3 mmol/L [facility] Sodium [Moles/Vol] 126 mmol/L Low 135 - 144 mmol/L [facility] Urea nitrogen [Mass/Vol] 51 mg/dL High 8 - 23 mg/dL [facility] SODIUM, URINE, RANDOMon 06-09 Sodium (U) [Moles/Vol] 41 mmol/L [facility] Sodium, Random Uron 06-22-19 Sodium (U) [Moles/Vol] 41 mmol/L Normal [facility] Comment on above: Result Comment: No n ormal range established. Performed By: #### I FX, URI, C4, PE, FKLLC, C3, PTHNCA #### [facility] [employer] [facility] [place], [place] [id number] Yard Switch Operator: Rodrick Jones MD UA w/Reflex Cultureon 2022 Bilirubin, SemiQt,Ur Negative Normal NEG [facility] Comment on above: Performed By: #### B MP, CBC #### [address] [address] Yard Switch Operator: Rodrick Jones MD Blood, Urine LARGE Abnormal NEG [facility] Comment on above: Performed By: #### B MP, CBC #### [address] [address] Yard Switch Operator: Rodrick Jones MD Clarity (U) Cloudy Abnormal CLEAR [facility] Comment on above: Performed By: #### B MP, CBC #### [address] [address] Yard Switch Operator: Rodrick Jones MD Color (U) [place] Abnormal YEL [facility] Comment on above: Result Comment: INTE RPRET WITH CAUTION DUE TO INTENSE COLOR OF URINE. Performed By: #### B MP, CBC #### [address] [address] Yard Switch Operator: Rodrick Jones MD Glucose Ql (U) Negative Normal NEG [facility] Comment on above: Performed By: #### B MP, CBC #### [address] [address] Yard Switch Operator: Rodrick Jones MD Ketones Ql (U) Negative Normal NEG [facility] Comment on above: Performed By: #### B MP, CBC #### [address] [address] Yard Switch Operator: Rodrick Jones MD Leukocyte esterase Test strip Ql (U) SMALL Abnormal NEG [facility] Comment on above: Performed By: #### B MP, CBC #### [address] [address] Yard Switch Operator: Rodrick Jones MD Nitrite,Ur Negative Normal NEG [facility] Comment on above: Performed By: #### B MP, CBC #### [address] [place] [address] Yard Switch Operator: Rodrick Jones MD PH,Ur 5.5 Normal 5.0-8.0 [facility] Comment on above: Performed By: #### B MP, CBC #### [facility] [address] [place] [address] Yard Switch Operator: Rodrick Jones MD Protein Ql (U) 4+ Abnormal NEG [facility] Comment on above: Performed By: #### B MP, CBC #### [facility] [address] [place] [address] Yard Switch Operator: Rodrick Jones MD Spec. [place],Ur 1.010 Normal 1.005-1.030 [facility] Comment on above: Performed By: #### B MP, CBC #### [facility] [address] [place] [address] Yard Switch Operator: Rodrick Jones MD Urobilinogen,Ur Normal Normal NORM [facility] Comment on above: Performed By: #### B MP, CBC #### [facility] [address] [place] [address] Yard Switch Operator: Rodrick Jones MD Urinalysis,Microon 3 Bacteria FEW Abnormal NONE [facility] Comment on above: Performed By: #### B MP, CBC #### [facility] [address] [place] [address] Yard Switch Operator: Rodrick Jones MD Casts 0 TO 2 Normal 0-2 [facility] Comment on above: Result Comment: ALIS BALDWIN Performed By: #### B MP, CBC #### [facility] [address] [place] [address] Yard Switch Operator: Rodrick Jones MD Epithelial cells LM Ql (Urine sed) 5 TO 10 Normal 0-5 [facility] Comment on above: Performed By: #### B MP, CBC #### [employer] [address] [place], [place] [phone] Yard Switch Operator: Rodrick Jones MD Urine RBC's TOO NUMEROUS TO COUNT Normal 0-2 [facility] Comment on above: Performed By: #### B MP, CBC #### [facility] [address] [place], [place] [phone] Yard Switch Operator: Rodrick Jones MD Urine WBC's 5 TO 10 Normal 0-5 [facility] Comment on above: Performed By: #### B MP, CBC #### [facility] [address] [place], [place] [phone] Yard Switch Operator: Rodrick Jones MD Basic Metabolic Panelon 06-09 Anion gap [Moles/Vol] 19 mmol/L High 9 - 17 mmol/L [facility] Calcium [Mass/Vol] 9.0 mg/dL 8.6 - 10. 4 mg/dL [facility] Chloride [Moles/Vol] 93 mmol/L Low 98 - 10 7 mmol/L [facility] CO2 [Moles/Vol] 15 mmol/L Low 20 - 31 mmol/L [facility] Creatinine [Mass/Vol] 3.65 mg/dL High 0.70 - 1.20 mg/dL [facility] GFR/1.73 sq M.predicted MDRD (S/P/Bld) [Vol rate/Area] 18 mL/min/{1.73_m2} Low - PINF [facility] Glucose [Mass/Vol] 152 mg/dL High 70 - 99 mg/dL [facility] Interpretation and review of laboratory results Abnormal [facility] Potassium [Moles/Vol] 4.3 mmol/L 3.7 - 5.3 mmol/L [facility] Sodium [Moles/Vol] 127 mmol/L Low 135 - 144 mmol/L [facility] Urea nitrogen [Mass/Vol] 49 mg/dL High 8 - 23 mg/dL [facility] Basic Metabolic Profon 06-20 Anion gap [Moles/Vol] 19 mmol/L High 9-17 [facility] Comment on above: Performed By: #### I FX, URI, C4, PE, FKLLC, C3, PTHNCA #### [facility] [employer] [address] [place] [address] Yard Switch Operator: Rodrick Jones MD Calcium [Mass/Vol] 9.0 mg/dL Normal 8.6-10.4 [facility] Comment on above: Performed By: #### I FX, URI, C4, PE, FKLLC, C3, PTHNCA #### [facility] [employer] [address] [place] [address] Yard Switch Operator: Rodrick Jones MD Chloride [Moles/Vol] 93 mmol/L Low 98-107 [facility] Comment on above: Performed By: #### I FX, URI, C4, PE, FKLLC, C3, PTHNCA #### [facility] [employer] [address] [place] [address] Yard Switch Operator: Rodrick Jones MD CO2 [Moles/Vol] 15 mmol/L Low 20-31 [facility] Comment on above: Performed By: #### I FX, URI, C4, PE, FKLLC, C3, PTHNCA #### [facility] [employer] [address] [place] [address] Yard Switch Operator: Rodrick Jones MD Creatinine [Mass/Vol] 3.65 mg/dL High 0.70-1.20 [facility] Comment on above: Performed By: #### I FX, URI, C4, PE, FKLLC, C3, PTHNCA #### [address] [address] Yard Switch Operator: Rodrick Jones MD GFR/1.73 sq M.predicted among non-blacks MDRD (S/P/Bld) [Vol rate/Area] 18 mL/min/{1.73_m2} Low >60 [facility] Comment on above: Result Comment: These results [...] URI, C4, PE, FKLLC, C3, PTHNCA #### [address] [address] Yard Switch Operator: Rodrick Jones MD Glucose [Mass/Vol] 152 mg/dL High 70-99 [facility] Comment on above: Performed By: #### I FX, URI, C4, PE, FKLLC, C3, PTHNCA #### [address] [address] Yard Switch Operator: Rodrick Jones MD Potassium [Moles/Vol] 4.3 mmol/L Normal 3.7-5.3 [facility] Comment on above: Performed By: #### I FX, URI, C4, PE, FKLLC, C3, PTHNCA #### [address] [address] Yard Switch Operator: Rodrick Jones MD Sodium [Moles/Vol] 127 mmol/L Low 135-144 [facility] Comment on above: Performed By: #### I FX, URI, C4, PE, FKLLC, C3, PTHNCA #### [address] [address] Yard Switch Operator: Rodrick Jones MD Urea nitrogen [Mass/Vol] 49 mg/dL High 8-23 [facility] Comment on above: Performed By: #### I FX, URI, C4, PE, FKLLC, C3, PTHNCA #### [address] [address] Yard Switch Operator: Rodrick Jones MD CBC with Auto Differentialon 06-20-2022 Absolute Eos # 0.04 [facility] Absolute Immature Granulocyte 0.07 [facility] Absolute Lymph # 0.73 Low [facility] Absolute Dawson # 1.00 [facility] Basophils (Bld) [#/Vol] 0.07 10*3/uL [facility] Basophils/100 WBC (Bld) 1 % 0 - 2 % [facility] Eosinophils/100 WBC (Bld) 0 % Low 1 - 4 % [facility] Hematocrit (Bld) [Volume fraction] 42.2 % 40.7 - 50.3 % [facility] Hemoglobin (Bld) [Mass/Vol] 13.7 g/dL 13.0 - 17.0 g/dL [facility] Immature granulocytes/100 WBC (Bld) 1 % High 0 [facility] Interpretation and review of laboratory results Abnormal [facility] Lymphocytes/100 WBC (Bld) 6 % Low 24 - 43 % [facility] MCH (RBC) [Entitic mass] 30.4 pg 25.2 - 33.5 pg [facility] MCHC (RBC) [Mass/Vol] 32.5 g/dL 28.4 - 34.8 g/dL [facility] MCV (RBC) [Entitic vol] 93.6 fL 82.6 - 102.9 fL [facility] Monocytes/100 WBC (Bld) 8 % 3 - 12 % [facility] NRBC Automated 0.0 0.0 per 100 WBC [facility] Platelet distribution width (Bld) [Ratio] 13.8 % 11.8 - 14.4 % [facility] Platelet mean volume (Bld) [Entitic vol] 11.1 fL 8.1 - 13.5 fL [facility] Platelets (Bld) [#/Vol] 199 10*3/uL [facility] RBC (Bld) [#/Vol] 4.51 10*6/uL 4.21 - 5.7 7 m/uL [facility] Seg Neutrophils 85 % High 36 - 65 % [facility] Segs Absolute 10.[address] [facility] WBC (Bld) [#/Vol] 12.7 10*3/uL High [facility] CBC with Diffon 06-20-2022 Abs. Basophil 0.07 k/uL Normal 0.00-0.20 [facility] Comment on above: Performed By: #### I FX, URI, C4, PE, FKLLC, C3, PTHNCA #### [place] [address] Yard Switch Operator: Rodrick Jones MD Abs.Imm.Granulocyte 0.07 k/uL Normal 0.00-0.30 [facility] Comment on above: Performed By: #### I FX, URI, C4, PE, FKLLC, C3, PTHNCA #### [place] [address] Yard Switch Operator: Rodrick Jones MD Abs.Neutrophil (Seg) 10.81 k/uL High 1.50-8.10 [facility] Comment on above: Performed By: #### I FX, URI, C4, PE, FKLLC, C3, PTHNCA #### [place] [address] Yard Switch Operator: Rodrick Jones MD Basophils/100 WBC (Bld) 1 % Normal 0-2 [facility] Comment on above: Performed By: #### I FX, URI, C4, PE, FKLLC, C3, PTHNCA #### [place] [address] Yard Switch Operator: Rodrick Jones MD Eosinophils (Bld) [#/Vol] 0.04 10*3/uL Normal 0.00-0.44 [facility] Comment on above: Performed By: #### I FX, URI, C4, PE, FKLLC, C3, PTHNCA #### [address] [address] Yard Switch Operator: Rodrick Jones MD Eosinophils/100 WBC (Bld) 0 % Low 1-4 [facility] Comment on above: Performed By: #### I FX, URI, C4, PE, FKLLC, C3, PTHNCA #### [address] [address] Yard Switch Operator: Rodrick Jones MD Erythrocyte distribution width (RBC) [Ratio] 13.8 % Normal 11.8-14.4 [facility] Comment on above: Performed By: #### I FX, URI, C4, PE, FKLLC, C3, PTHNCA #### [address] [address] Yard Switch Operator: Rodrick Jones MD Hematocrit (Bld) [Volume fraction] 42.2 % Normal 40.7-50.3 [facility] Comment on above: Performed By: #### I FX, URI, C4, PE, FKLLC, C3, PTHNCA #### [address] [address] Yard Switch Operator: Rodrick Jones MD Hemoglobin (Bld) [Mass/Vol] 13.7 g/dL Normal 13.0-17.0 [facility] Comment on above: Performed By: #### I FX, URI, C4, PE, FKLLC, C3, PTHNCA #### [address] [address] Yard Switch Operator: Rodrick Jones MD Immature granulocytes/100 WBC (Bld) 1 % High 0 [facility] Comment on above: Performed By: #### I FX, URI, C4, PE, FKLLC, C3, PTHNCA #### [address] [phone] Yard Switch Operator: Rodrick Jones MD Lymphocytes (Bld) [#/Vol] 0.73 10*3/uL Low 1.10-3.70 [facility] Comment on above: Performed By: #### I FX, URI, C4, PE, FKLLC, C3, PTHNCA #### [address] [phone] Yard Switch Operator: Rodrick Jones MD Lymphocytes/100 WBC (Bld) 6 % Low 24-43 [facility] Comment on above: Performed By: #### I FX, URI, C4, PE, FKLLC, C3, PTHNCA #### [place] [address] Yard Switch Operator: Rodrick Jones MD MCH (RBC) [Entitic mass] 30.4 pg Normal 25.2-33.5 [facility] Comment on above: Performed By: #### I FX, URI, C4, PE, FKLLC, C3, PTHNCA #### [place] [address] Yard Switch Operator: Rodrick Jones MD MCHC (RBC) [Mass/Vol] 32.5 g/dL Normal 28.4-34.8 [facility] Comment on above: Performed By: #### I FX, URI, C4, PE, FKLLC, C3, PTHNCA #### [place] [address] Yard Switch Operator: Rodrick Jones MD MCV (RBC) [Entitic vol] 93.6 fL Normal 82.6-102.9 [facility] Comment on above: Performed By: #### I FX, URI, C4, PE, FKLLC, C3, PTHNCA #### [address] [address] Yard Switch Operator: Rodrick Jones MD Monocytes (Bld) [#/Vol] 1.00 10*3/uL Normal 0.10-1.20 [facility] Comment on above: Performed By: #### I FX, URI, C4, PE, FKLLC, C3, PTHNCA #### [address] [address] Yard Switch Operator: Rodrick Jones MD Monocytes/100 WBC (Bld) 8 % Normal 3-12 [facility] Comment on above: Performed By: #### I FX, URI, C4, PE, FKLLC, C3, PTHNCA #### [address] [address] Yard Switch Operator: Rodrick Jones MD Neutrophil (Seg) 85 % High 36-65 [facility] Comment on above: Performed By: #### I FX, URI, C4, PE, FKLLC, C3, PTHNCA #### [address] [address] Yard Switch Operator: Rodrick Jones MD NRBC Automated 0.0 per 100 WBC Normal 0.0 [facility] Comment on above: Performed By: #### I FX, URI, C4, PE, FKLLC, C3, PTHNCA #### [address] [address] Yard Switch Operator: Rodrick Jones MD Platelet mean volume (Bld) [Entitic vol] 11.1 fL Normal 8.1-13.5 [facility] Comment on above: Performed By: #### I FX, URI, C4, PE, FKLLC, C3, PTHNCA #### [address] [address] Yard Switch Operator: Rodrick Jones MD Platelets (Bld) [#/Vol] 199 10*3/uL Normal 138-453 [facility] Comment on above: Performed By: #### I FX, URI, C4, PE, FKLLC, C3, PTHNCA #### [address] [address] Yard Switch Operator: Rodrick Jones MD RBC (Bld) [#/Vol] 4.51 10*6/uL Normal 4.21-5.77 [facility] Comment on above: Performed By: #### I FX, URI, C4, PE, FKLLC, C3, PTHNCA #### [address] [place] [address] Yard Switch Operator: Rodrick Jones MD WBC (Bld) [#/Vol] 12.7 10*3/uL High 3.5-11.3 [facility] Comment on above: Performed By: #### I FX, URI, C4, PE, FKLLC, C3, PTHNCA #### [address] [place] [address] Yard Switch Operator: Rodrick Jones MD COVID-19, Rapidon 06-20-2022 SARS-CoV-2 (COVID-19) RdRp gene BENTLEY+probe Ql (Resp) Not detected Not Detected [facility] Specimen Description .NASOPHARYNGEAL SWAB [facility] Comp Metabolic Pr/rfx MGon 0 06-20-2022 Albumin [Mass/Vol] 3.5 g/dL Normal 3.5-5.2 [facility] Comment on above: Performed By: #### I FX, URI, C4, PE, FKLLC, C3, PTHNCA #### [facility] [employer] [facility] [place] [address] Yard Switch Operator: Rodrick Jones MD Albumin/Glob Ratio 0.8 Low 1.0-2.5 [facility] Comment on above: Performed By: #### I FX, URI, C4, PE, FKLLC, C3, PTHNCA #### [facility] [address] [place] [address] Yard Switch Operator: Rodrick Jones MD Alkaline Phos 93 U/L Normal 40-129 [facility] Comment on above: Performed By: #### I FX, URI, C4, PE, FKLLC, C3, PTHNCA #### [address] [address] Yard Switch Operator: Rodrick Jones MD ALT [Catalytic activity/Vol] 13 U/L Normal 5-41 [facility] Comment on above: Performed By: #### I FX, URI, C4, PE, FKLLC, C3, PTHNCA #### [address] [address] Yard Switch Operator: Rodrick Jones MD Anion gap [Moles/Vol] 17 mmol/L Normal 9-17 [facility] Comment on above: Performed By: #### I FX, URI, C4, PE, FKLLC, C3, PTHNCA #### [address] [address] Yard Switch Operator: Rodrick Jones MD AST [Catalytic activity/Vol] 21 U/L Normal <40 [facility] Comment on above: Performed By: #### I FX, URI, C4, PE, FKLLC, C3, PTHNCA #### [address] [address] Yard Switch Operator: Rodrick Jones MD Bilirubin [Mass/Vol] 0.7 mg/dL Normal 0.3-1.2 [facility] Comment on above: Performed By: #### I FX, URI, C4, PE, FKLLC, C3, PTHNCA #### [address] [address] Yard Switch Operator: Rodrick Jones MD Calcium [Mass/Vol] 9.1 mg/dL Normal 8.6-10.4 [facility] Comment on above: Performed By: #### I FX, URI, C4, PE, FKLLC, C3, PTHNCA #### [address] [address] Yard Switch Operator: Rodrick Jones MD Chloride [Moles/Vol] 92 mmol/L Low 98-107 [facility] Comment on above: Performed By: #### I FX, URI, C4, PE, FKLLC, C3, PTHNCA #### [facility] [place] [address] Yard Switch Operator: Rodrick Jones MD CO2 [Moles/Vol] 19 mmol/L Low 20-31 [facility] Comment on above: Performed By: #### I FX, URI, C4, PE, FKLLC, C3, PTHNCA #### [address] [address] Yard Switch Operator: Rodrick Jones MD Creatinine [Mass/Vol] 3.64 mg/dL High 0.70-1.20 [facility] Comment on above: Performed By: #### I FX, URI, C4, PE, FKLLC, C3, PTHNCA #### [address] [address] Yard Switch Operator: Rodrick Jones MD GFR/1.73 sq M.predicted among non-blacks MDRD (S/P/Bld) [Vol rate/Area] 18 mL/min/{1.73_m2} Low >60 [facility] Comment on above: Result Comment: These results [...] URI, C4, PE, FKLLC, C3, PTHNCA #### [address] [phone] Yard Switch Operator: Rodrick Jones MD Glucose [Mass/Vol] 145 mg/dL High 70-99 [facility] Comment on above: Performed By: #### I FX, URI, C4, PE, FKLLC, C3, PTHNCA #### [address] [address] Yard Switch Operator: Rodrick Jones MD Potassium [Moles/Vol] 4.3 mmol/L Normal 3.7-5.3 [facility] Comment on above: Performed By: #### I FX, URI, C4, PE, FKLLC, C3, PTHNCA #### [address] [address] Yard Switch Operator: Rodrick Jones MD Protein [Mass/Vol] 7.8 g/dL Normal 6.4-8.3 [facility] Comment on above: Performed By: #### I FX, URI, C4, PE, FKLLC, C3, PTHNCA #### [facility] [employer] [address] [place] [address] Yard Switch Operator: Rodrick Jones MD Sodium [Moles/Vol] 128 mmol/L Low 135-144 [facility] Comment on above: Performed By: #### I FX, URI, C4, PE, FKLLC, C3, PTHNCA #### [address] [address] Yard Switch Operator: Rodrick Jones MD Urea nitrogen [Mass/Vol] 47 mg/dL High 8-23 [facility] Comment on above: Performed By: #### I FX, URI, C4, PE, FKLLC, C3, PTHNCA #### [address] [address] Yard Switch Operator: Rodrick Jones MD Comprehensive Metabolic Pane l w/ Reflex to MGon 06-20-2022 Albumin [Mass/Vol] 3.5 g/dL 3.5 - 5.2 g/dL [facility] Albumin/Globulin [Mass ratio] 0.8 {ratio} Low 1.0 - 2.5 [facility] ALP [Catalytic activity/Vol] 93 U/L 40 - 129 U/L [facility] ALT [Catalytic activity/Vol] 13 U/L 5 - 41 U/L [facility] Anion gap [Moles/Vol] 17 mmol/L 9 - 17 mmol/L [facility] AST [Catalytic activity/Vol] 21 U/L NINF - 40 U/L [facility] Bilirubin [Mass/Vol] 0.7 mg/dL 0.3 - 1 .2 mg/dL [facility] Calcium [Mass/Vol] 9.1 mg/dL 8.6 - 10. 4 mg/dL [facility] Chloride [Moles/Vol] 92 mmol/L Low 98 - 10 7 mmol/L [facility] CO2 [Moles/Vol] 19 mmol/L Low 20 - 31 mmol/L [facility] Creatinine [Mass/Vol] 3.64 mg/dL High 0.70 - 1.20 mg/dL [facility] GFR/1.73 sq M.predicted MDRD (S/P/Bld) [Vol rate/Area] 18 mL/min/{1.73_m2} Low - PINF [facility] Glucose [Mass/Vol] 145 mg/dL High 70 - 99 mg/dL [facility] Interpretation and review of laboratory results Abnormal [facility] Potassium [Moles/Vol] 4.3 mmol/L 3.7 - 5.3 mmol/L [facility] Protein [Mass/Vol] 7.8 g/dL 6.4 - 8.3 g/dL [facility] Sodium [Moles/Vol] 128 mmol/L Low 135 - 144 mmol/L [facility] Urea nitrogen [Mass/Vol] 47 mg/dL High 8 - 23 mg/dL [facility] Flu A/B Ag Detectionon 06-20 Flu A Ag Detection Negative Normal NEG [facility] Comment on above: Result Comment: for Influenza A Antigen Performed By: #### C RP, RENP, CBC, MG #### [employer] [address] [place], [place] [id number] Yard Switch Operator: Rodrick Jones MD Flu B Ag Detection Negative Normal NEG [facility] Comment on above: Result Comment: for Influenza B Antigen. Performed By: #### C RP, RENP, CBC, MG #### [facility] [place], [place] [phone] Yard Switch Operator: Rodrick Jones MD Lactate, Sepsison 06-20-2022 Lactic Acid,Sep Wbld 1.1 mmol/L Normal 0.5-1.9 [facility] Comment on above: Performed By: #### C RP, RENP, CBC, MG #### [facility] [place], [place] [phone] Yard Switch Operator: Rodrick Jones MD Lactic Acid, Sepsis, Whole Blood 1.1 mmol/L 0.5 - 1.9 mmol/L [facility] Lactic Acid,Sep Wbld 2.1 mmol/L High 0.5-1.9 [facility] Comment on above: Performed By: #### I FX, URI, C4, PE, FKLLC, C3, PTHNCA #### [facility] [employer] [facility] [place], [place] [phone] Yard Switch Operator: Rodrick Jones MD Interpretation and review of laboratory results Abnormal [facility] Lactic Acid, Sepsis, Whole Blood 2.1 mmol/L High 0.5 - 1.9 mmol/L [facility] Microscopic Urinalysison Bacteria, UA FEW Abnormal None [facility] Casts UA 0 TO 2 [facility] Casts UA COARSELY GRANULAR [facility] Epithelial Cells UA 5 TO 10 [facility] Interpretation and review of laboratory results Abnormal [facility] RBC clumps Auto (Urine sed) [#/Area] TOO NUMEROUS TO COUNT [facility] WBC, UA 5 TO [address] [facility] Bacteria[facility] UA MANY Abnormal None [facility] Casts UA 0 TO 2 [facility] Casts UA COARSELY GRANULAR [facility] Epithelial Cells UA None [facility] Interpretation and review of laboratory results Abnormal [facility] RBC clumps Auto (Urine sed) [#/Area] TOO NUMEROUS TO COUNT [facility] WBC, UA 5 TO 10 [facility] No Panel Informationon 06-20 Radiology Study observation (narrative) [facility] Work Phone: POC Glucose Fingerstickon Glucose [Mass/Vol] 183 mg/dL High 75 - 110 mg/dL [facility] Interpretation and review of laboratory results Abnormal [facility] Glucose [Mass/Vol] 163 mg/dL High 75 - 110 mg/dL [facility] Interpretation and review of laboratory results Abnormal [facility] Glucose [Mass/Vol] 129 mg/dL High 75 - 110 mg/dL [facility] Interpretation and review of laboratory results Abnormal [facility] Glucose [Mass/Vol] 92 mg/dL 75 - 110 mg/dL [facility] RAPID INFLUENZA A/B ANTIGENS on 06-20-2022 FLUAV Ag Ql (Unsp spec) Negative NEGATIVE [facility] FLUBV Ag Ql (Unsp spec) Negative NEGATIVE [facility] [id number] 06-20-2022 SARS-CoV-2 (COVID-19) RNA BENTLEY+probe Ql (Unsp [...] management decisions. Fact sheet for Healthcare Providers: https://www.fda.gov/media/448902/download Fact sheet for Patients: https://www.fda.gov/media/973145/download Methodology: Isothermal Nucleic Acid Amplification Performed By: #### I FX, URI, C4, PE, FKLLC, C3, PTHNCA #### [employer] [address] [place] [phone] Yard Switch Operator: Rodrick Jones MD Troponinon 06-20-2022 Troponin, High Sens 51 ng/L High 0-22 [facility] Comment on above: Result Comment: High Sensitivity Troponin values cannot be compared with other Troponin methodologies. Performed By: #### I FX, URI, C4, PE, FKLLC, C3, PTHNCA #### [employer] [address] [place] [address] [phone] Yard Switch Operator: Rodrick Jones MD Troponin, High Sens 52 ng/L Critically high 022 [facility] Comment on above: Result Comment: High Sensitivity Troponin values cannot be compared with other Troponin methodologies. Performed By: #### I FX, URI, C4, PE, FKLLC, C3, PTHNCA #### [employer] [address] [place] [address] [phone] Yard Switch Operator: Rodrick Jones MD Interpretation and review of laboratory results Abnormal [facility] Troponin I.cardiac DL <= 0.01 ng/mL [Mass/Vol] 51 ng/L High 0 - 22 ng/L [facility] Interpretation and review of laboratory results Abnormal [facility] Troponin I.cardiac DL <= 0.01 ng/mL [Mass/Vol] 52 ng/L Critically high 0 - 22 ng/L [facility] UA w/Reflex Cultureon 2022 Bilirubin, SemiQt,Ur Negative Normal NEG [facility] Comment on above: Performed By: #### B MP, CBC #### [address] [address] Yard Switch Operator: Rodrick Jones MD Blood, Urine LARGE Abnormal NEG [facility] Comment on above: Performed By: #### B MP, CBC #### [address] [address] Yard Switch Operator: Rodrick Jones MD Clarity (U) Cloudy Abnormal CLEAR [facility] Comment on above: Performed By: #### B MP, CBC #### [address] [address] Yard Switch Operator: Rodrick Jones MD Color (U) Red Abnormal YEL [facility] Comment on above: Result Comment: INTE RPRET WITH CAUTION DUE TO INTENSE COLOR OF URINE. Performed By: #### B MP, CBC #### [address] [address] Yard Switch Operator: Rodrick Jones MD Glucose Ql (U) Negative Normal NEG [facility] Comment on above: Performed By: #### B MP, CBC #### [address] [address] Yard Switch Operator: Rodrick Jones MD Ketones Ql (U) Negative Normal NEG [facility] Comment on above: Performed By: #### B MP, CBC #### [address] [address] Yard Switch Operator: Rodrick Jones MD Leukocyte esterase Test strip Ql (U) SMALL Abnormal NEG [facility] Comment on above: Performed By: #### B MP, CBC #### [address] [address] Yard Switch Operator: Rodrick Jones MD Nitrite,Ur Positive Abnormal NEG [facility] Comment on above: Performed By: #### B MP, CBC #### [facility] [employer] [address] [place] [phone] Yard Switch Operator: Rodrick Jones MD PH,Ur 5.0 Normal 5.0-8.0 [facility] Comment on above: Performed By: #### B MP, CBC #### [facility] [employer] [address] [place] [address] Yard Switch Operator: Rodrick Jones MD Protein Ql (U) 4+ Abnormal NEG [facility] Comment on above: Performed By: #### B MP, CBC #### [facility] [employer] [address] [place] [phone] Yard Switch Operator: Rodrick Jones MD Spec. [place],Ur 1.015 Normal 1.005-1.030 [facility] Comment on above: Performed By: #### B MP, CBC #### [address] [address] Yard Switch Operator: Rodrick Jones MD Urobilinogen,Ur Normal Normal NORM [facility] Comment on above: Performed By: #### B MP, CBC #### [address] [address] Yard Switch Operator: Rodrick Jones MD Urinalysis with Reflex to Cu ltureon 06-20-2022 Bilirubin Urine Negative NEGATIVE [facility] Color, UA [place] Abnormal Yellow [facility] Glucose Auto test strip (U) [Mass/Vol] Negative NEGATIVE [facility] Interpretation and review of laboratory results Abnormal [facility] Ketones (U) [Mass/Vol] Negative NEGATIVE [facility] Leukocyte esterase Auto test strip Ql (U) SMALL Abnormal NEGATIVE [facility] Nitrite Auto test strip Ql (U) Negative NEGATIVE [facility] Protein (U) [Mass/Vol] 5.5 mg/dL 5.0 - 8.0 [facility] Protein (U) [Mass/Vol] 4+ Abnormal NEGATIVE [facility] Specific [place], UA 1.010 1.005 - 1.030 [facility] Turbidity UA Cloudy Abnormal Clear [facility] Urine Hgb LARGE Abnormal NEGATIVE [facility] Urobilinogen, Urine Normal Normal [facility] Bilirubin Urine Negative NEGATIVE [facility] Color, UA Red Abnormal Yellow [facility] Glucose Auto test strip (U) [Mass/Vol] Negative NEGATIVE [facility] Interpretation and review of laboratory results Abnormal [facility] Ketones (U) [Mass/Vol] Negative NEGATIVE [facility] Leukocyte esterase Auto test strip Ql (U) SMALL Abnormal NEGATIVE [facility] Nitrite Auto test strip Ql (U) Positive Abnormal NEGATIVE [facility] Protein (U) [Mass/Vol] 5.0 mg/dL 5.0 - 8.0 [facility] Protein (U) [Mass/Vol] 4+ Abnormal NEGATIVE [facility] Specific [place], UA 1.015 1.005 - 1.030 [facility] ON [facility] Turbidity UA Cloudy Abnormal Clear [facility] Urine Hgb LARGE Abnormal NEGATIVE [facility] Urobilinogen, Urine Normal Normal [facility] Urinalysis,Microon 3 Bacteria MANY Abnormal NONE [facility] Comment on above: Performed By: #### B MP, CBC #### [employer] [address] [place] [address] Yard Switch Operator: Rodrick Jones MD Casts 0 TO 2 Normal 0-2 [facility] Comment on above: Result Comment: COAR MEL BALDWIN Performed By: #### B MP, CBC #### [employer] [address] [phone] Yard Switch Operator: Rodrick Jones MD Epithelial cells LM Ql (Urine sed) None Normal 0-5 [facility] Comment on above: Performed By: #### B MP, CBC #### [facility] [address] [place] [address] Yard Switch Operator: Rodrick Jones MD Urine RBC's TOO NUMEROUS TO COUNT Normal 0-2 [facility] Comment on above: Performed By: #### B MP, CBC #### [facility] [address] [place], [place] [phone] Yard Switch Operator: Rodrick Jones MD Urine WBC's 5 TO 10 Normal 0-5 [facility] Comment on above: Performed By: #### B MP, CBC #### [facility] [address] [place] [address] [phone] Yard Switch Operator: Rodrick Jones MD XR CHEST PORTABLEon 06-21-19 [...] Radha Caceres MD 06/20/22 Final result Normal [facility]PN RIS CONSOLIDATED MHPN RIS CONSOLIDATED [facility] Work Phone: XR CHEST PORTABLEOrdered By: Radha Caceres on 06-20-2022 [facility] Work Phone: POC Glucose Fingerstickon Glucose [Mass/Vol] 269 mg/dL High 75 - 110 mg/dL [facility] Interpretation and review of laboratory results Abnormal [facility] Glucose [Mass/Vol] 248 mg/dL High 75 - 110 mg/dL [facility] Interpretation and review of laboratory results Abnormal [facility] Basic Metabolic Panelon Anion gap [Moles/Vol] 14 mmol/L 9 - 17 mmol/L [facility] Calcium [Mass/Vol] 9.4 mg/dL 8.6 - 10. 4 mg/dL [facility] Chloride [Moles/Vol] 103 mmol/L 98 - 10 7 mmol/L [facility] CO2 [Moles/Vol] 20 mmol/L 20 - 31 mmol/L [facility] Creatinine [Mass/Vol] 2.11 mg/dL High 0.70 - 1.20 mg/dL [facility] GFR/1.73 sq M.predicted MDRD (S/P/Bld) [Vol rate/Area] 35 mL/min/{1.73_m2} Low - PINF [facility] Comment on above: These results are not [...] 254 mg/dL High 70 - 99 mg/dL [facility] Interpretation and review of laboratory results Abnormal [facility] Potassium [Moles/Vol] 4.4 mmol/L 3.7 - 5.3 mmol/L [facility] Sodium [Moles/Vol] 137 mmol/L 135 - 144 mmol/L [facility] Urea nitrogen [Mass/Vol] 29 mg/dL High 8 - 23 mg/dL [facility] Basic Metabolic Profon 06-10 Anion gap [Moles/Vol] 14 mmol/L Normal 9-17 [facility] Comment on above: Performed By: #### B MP, CBC #### [facility] [address] [place] [address] Yard Switch Operator: You Bro DO Calcium [Mass/Vol] 9.4 mg/dL Normal 8.6-10.4 [facility] Comment on above: Performed By: #### B MP, CBC #### [facility] [address] [place] [address] Yard Switch Operator: You Bro DO Chloride [Moles/Vol] 103 mmol/L Normal 98-107 [facility] Comment on above: Performed By: #### B MP, CBC #### [facility] [address] [facility] [place] [address] Yard Switch Operator: You Bro DO CO2 [Moles/Vol] 20 mmol/L Normal 20-31 [facility] Comment on above: Performed By: #### B CECY, CBC #### [facility] [place] [address] Yard Switch Operator: You Bro DO Creatinine [Mass/Vol] 2.11 mg/dL High 0.70-1.20 [facility] Comment on above: Performed By: #### B CECY, CBC #### [facility] [place] [address] Yard Switch Operator: You Bro DO GFR/1.73 sq M.predicted among non-blacks MDRD (S/P/Bld) [Vol rate/Area] 35 mL/min/{1.73_m2} Low >60 [facility] Comment on above: Result Comment: These [...] Performed By: #### B MP, CBC #### [facility] [address] [facility] [place] [address] Yard Switch Operator: You rBo DO Glucose [Mass/Vol] 254 mg/dL High 70-99 [facility] Comment on above: Performed By: #### B MP, CBC #### [facility] [address] [place] [address] Yard Switch Operator: You Bro DO Potassium [Moles/Vol] 4.4 mmol/L Normal 3.7-5.3 [facility] Comment on above: Performed By: #### B MP, CBC #### [facility] [place] [address] Yard Switch Operator: You Bro DO Sodium [Moles/Vol] 137 mmol/L Normal 135-144 [facility] Comment on above: Performed By: #### B CECY, CBC #### [facility] [place] [address] Yard Switch Operator: You Bro DO Urea nitrogen [Mass/Vol] 29 mg/dL High 8-23 [facility] Comment on above: Performed By: #### B CECY, CBC #### [facility] [address] [place] [address] Yard Switch Operator: You Bro DO CBCon 06-10-2022 Erythrocyte distribution width (RBC) [Ratio] 15.0 % High 11.5-14.9 [facility] Comment on above: Performed By: #### B CECY, CBC #### [facility] [address] [place] [address] Yard Switch Operator: You Bro DO Hematocrit (Bld) [Volume fraction] 40.7 % Low 41-53 [facility] Comment on above: Performed By: #### B MP, CBC #### [facility] [place] [address] Yard Switch Operator: You Bro DO Hemoglobin (Bld) [Mass/Vol] 13.7 g/dL Normal 13.5-17.5 [facility] Comment on above: Performed By: #### B MP, CBC #### [facility] [address] [place] [address] Yard Switch Operator: You Bro DO MCH (RBC) [Entitic mass] 30.9 pg Normal 26-34 [facility] Comment on above: Performed By: #### B MP, CBC #### [facility] [address] [place] [address] Yard Switch Operator: You Bro DO MCHC (RBC) [Mass/Vol] 33.7 g/dL Normal 31-37 [facility] Comment on above: Performed By: #### B MP, CBC #### [facility] [address] [place] [address] Yard Switch Operator: You Bro DO MCV (RBC) [Entitic vol] 91.5 fL Normal 80-100 [facility] Comment on above: Performed By: #### B CECY, CBC #### [facility] [address] [place] [address] Yard Switch Operator: You Bro DO Platelet mean volume (Bld) [Entitic vol] 8.2 fL Normal 6.0-12.0 [facility] Comment on above: Performed By: #### B CECY, CBC #### [facility] [address] [place] [address] Yard Switch Operator: You Bro DO Platelets (Bld) [#/Vol] 312 10*3/uL Normal 150-450 [facility] Comment on above: Performed By: #### B MP, CBC #### [facility] [address] [place] [address] Yard Switch Operator: You Bro DO RBC (Bld) [#/Vol] 4.44 10*6/uL Low 4.5-5.9 [facility] Comment on above: Performed By: #### B MP, CBC #### [facility] [address] [facility] [place] [address] Yard Switch Operator: You Bro DO WBC (Bld) [#/Vol] 10.3 10*3/uL Normal 3.5-11.0 [facility] Comment on above: Performed By: #### B MP, CBC #### [facility] [address] [facility] [place] [address] Yard Switch Operator: You Bro DO Hematocrit (Bld) [Volume fraction] 40.7 % Low 41 - 53 % [facility] Hemoglobin (Bld) [Mass/Vol] 13.7 g/dL 13.5 - 17.5 g/dL [facility] Interpretation and review of laboratory results Abnormal [facility] MCH (RBC) [Entitic mass] 30.9 pg 26 - 34 pg [facility] MCHC (RBC) [Mass/Vol] 33.7 g/dL 31 - 37 g/dL B [facility] MCV (RBC) [Entitic vol] 91.5 fL 80 - 100 fL [facility] Platelet distribution width (Bld) [Ratio] 15.0 % High 11.5 - 14.9 % [facility] Platelet mean volume (Bld) [Entitic vol] 8.2 fL 6.0 - 12.0 fL [facility] Platelets (Bld) [#/Vol] 312 10*3/uL [facility] RBC (Bld) [#/Vol] 4.44 10*6/uL Low 4.5 - 5.9 m/uL [facility] WBC (Bld) [#/Vol] 10.3 10*3/uL [facility] Lamotrigineon 06-10-2022 Lamotrigine 3.3 ug/mL Normal 3.0-15.0 [facility] Comment on above: Result Comment: Neither [...] be needed. Performed By: #### L MERLIN ####[address] [place] [address] lab Director: Rodrick Jones MD POC Glucose Fingerstickon Glucose [Mass/Vol] 206 mg/dL High 75 - 110 mg/dL [facility] Interpretation and review of laboratory results Abnormal [facility] Franch[facility]e [facility]adiatorSELECT [facility] Glucose [Mass/Vol] 244 mg/dL High 75 - 110 mg/dL [facility] Interpretation and review of laboratory results Abnormal [facility]AD[facility]anch[facility]adiatorSELECT [facility] Glucose [Mass/Vol] 223 mg/dL High 75 - 110 mg/dL [facility] Interpretation and review of laboratory results Abnormal [facility]AD[facility] Glucose [Mass/Vol] 208 mg/dL High 75 - 110 mg/dL [facility] Interpretation and review of laboratory results Abnormal [facility]atorSELECT [facility] Lamotrigine Levelon 06-10-19 23 Lamotrigine Lvl 3.3 ug/mL 3.0 - 15.0 ug/mL [facility] [employer] Comment on above: Neither a therapeutic or [...] Multiple measurements of lamotrigine may be needed. [facility] [employer] POC Glucose Fingerstickon Glucose [Mass/Vol] 175 mg/dL High 75 - 110 mg/dL [facility] Interpretation and review of laboratory results Abnormal [facility] Glucose [Mass/Vol] 232 mg/dL High 75 - 110 mg/dL [facility] Interpretation and review of laboratory results Abnormal [facility] Glucose [Mass/Vol] 215 mg/dL High 75 - 110 mg/dL [facility] Interpretation and review of laboratory results Abnormal [facility] Glucose [Mass/Vol] 187 mg/dL High 75 - 110 mg/dL [facility] Interpretation and review of laboratory results Abnormal [facility] Glucose Fingerstickon Glucose [Mass/Vol] 202 mg/dL High 75 - 110 mg/dL [facility] Interpretation and review of laboratory results Abnormal [facility] Glucose [Mass/Vol] 216 mg/dL High 75 - 110 mg/dL [facility] Interpretation and review of laboratory results Abnormal [facility] Glucose [Mass/Vol] 248 mg/dL High 75 - 110 mg/dL [facility] Interpretation and review of laboratory results Abnormal [facility] Glucose [Mass/Vol] 175 mg/dL High 75 - 110 mg/dL [facility] Interpretation and review of laboratory results Abnormal [facility] POC Glucose Fingerstickon Glucose [Mass/Vol] 219 mg/dL High 75 - 110 mg/dL [facility] Interpretation and review of laboratory results Abnormal [facility] Glucose [Mass/Vol] 221 mg/dL High 75 - 110 mg/dL [facility] Interpretation and review of laboratory results Abnormal [facility] Glucose [Mass/Vol] 180 mg/dL High 75 - 110 mg/dL [facility] Interpretation and review of laboratory results Abnormal [facility] Glucose [Mass/Vol] 181 mg/dL High 75 - 110 mg/dL [facility] Interpretation and review of laboratory results Abnormal [facility] P[facility] Glucose Fingerstickon Glucose [Mass/Vol] 209 mg/dL High 75 - 110 mg/dL [facility] Interpretation and review of laboratory results Abnormal [facility] Glucose [Mass/Vol] 133 mg/dL High 75 - 110 mg/dL [facility] Interpretation and review of laboratory results Abnormal [facility] Glucose [Mass/Vol] 255 mg/dL High 75 - 110 mg/dL [facility] Interpretation and review of laboratory results Abnormal [facility] Glucose [Mass/Vol] 158 mg/dL High 75 - 110 mg/dL [facility] Interpretation and review of laboratory results Abnormal [facility] Basic Metab w/rfx MGon 06-05 Anion gap [Moles/Vol] 11 mmol/L Normal 9-17 [facility] Comment on above: Performed By: #### C DP, LIVP, BMPX #### [facility] [address] [place] [address] Yard Switch Operator: You Bro DO Calcium [Mass/Vol] 8.9 mg/dL Normal 8.6-10.4 [facility] Comment on above: Performed By: #### C DP, LIVP, BMPX #### [facility] [place] [address] Yard Switch Operator: You Bro DO Chloride [Moles/Vol] 105 mmol/L Normal 98-107 [facility] Comment on above: Performed By: #### C DP, LIVP, BMPX #### [facility] [place] [address] Yard Switch Operator: You Bro DO CO2 [Moles/Vol] 24 mmol/L Normal 20-31 [facility] Comment on above: Performed By: #### C DP, LIVP, BMPX #### [facility] [place] [address] Yard Switch Operator: You Bro DO Creatinine [Mass/Vol] 2.07 mg/dL High 0.70-1.20 [facility] Comment on above: Performed By: #### C DP, LIVP, BMPX #### [facility] [address] [facility] [place] [address] Yard Switch Operator: You Bro DO GFR/1.73 sq M.predicted among non-blacks MDRD (S/P/Bld) [Vol rate/Area] 36 mL/min/{1.73_m2} Low >60 [facility] Comment on above: Result Comment: These [...] By: #### C DP, LIVP, BMPX #### [facility] [place] [address] Yard Switch Operator: You Bro DO Glucose [Mass/Vol] 171 mg/dL High 70-99 [facility] Comment on above: Performed By: #### C DP, LIVP, BMPX #### [facility] [place] [address] Yard Switch Operator: You Bro DO Potassium [Moles/Vol] 3.7 mmol/L Normal 3.7-5.3 [facility] Comment on above: Performed By: #### C DP, LIVP, BMPX #### [facility] [place] [address] Yard Switch Operator: You Bro DO Sodium [Moles/Vol] 140 mmol/L Normal 135-144 [facility] Comment on above: Performed By: #### C DP, LIVP, BMPX #### [facility] [address] [place] [address] Yard Switch Operator: You Bro DO Urea nitrogen [Mass/Vol] 27 mg/dL High 8-23 [facility] Comment on above: Performed By: #### C DP, LIVP, BMPX #### [facility] [address] [place] [address] Yard Switch Operator: You Bro DO Basic Metabolic Panel w/ Ref artis to MGon 06-05-2022 Anion gap [Moles/Vol] 11 mmol/L 9 - 17 mmol/L [facility] Calcium [Mass/Vol] 8.9 mg/dL 8.6 - 10. 4 mg/dL [facility] Chloride [Moles/Vol] 105 mmol/L 98 - 10 7 mmol/L [facility] CO2 [Moles/Vol] 24 mmol/L 20 - 31 mmol/L [facility] Creatinine [Mass/Vol] 2.07 mg/dL High 0.70 - 1.20 mg/dL [facility] GFR/1.73 sq M.predicted MDRD (S/P/Bld) [Vol rate/Area] 36 mL/min/{1.73_m2} Low - PINF [facility] Comment on above: These results are not [...] 171 mg/dL High 70 - 99 mg/dL [facility] Potassium [Moles/Vol] 3.7 mmol/L 3.7 - 5.3 mmol/L [facility] Sodium [Moles/Vol] 140 mmol/L 135 - 144 mmol/L [facility] Urea nitrogen [Mass/Vol] 27 mg/dL High 8 - 23 mg/dL [facility] CBC auto differentialon 05-13 Absolute Eos # 0.52 High [facility] Absolute Lymph # 2.50 [facility] Absolute Dawson # 0.83 [facility] RS [facility] Basophils (Bld) [#/Vol] 0.10 10*3/uL [facility] Basophils/100 WBC (Bld) 1 % 0 - 2 % [facility] Eosinophils/100 WBC (Bld) 5 % High 0 - 4 % [facility] Hematocrit (Bld) [Volume fraction] 38.0 % Low 41 - 53 % [facility] Hemoglobin (Bld) [Mass/Vol] 12.5 g/dL Low 13.5 - 17.5 g/dL [facility] Interpretation and review of laboratory results Abnormal [facility] Lymphocytes/100 WBC (Bld) 24 % 24 - 44 % [facility] MCH (RBC) [Entitic mass] 31.1 pg 26 - 34 pg [facility] MCHC (RBC) [Mass/Vol] 33.1 g/dL 31 - 37 g/dL B [facility] MCV (RBC) [Entitic vol] 94.2 fL 80 - 100 fL [facility] Monocytes/100 WBC (Bld) 8 % High 1 - 7 % [facility] Morphology Cale (Bld) [Interp] ANISOCYTOSIS PRESENT [facility] Platelet distribution width (Bld) [Ratio] 14.3 % 11.5 - 14.9 % [facility] Platelet mean volume (Bld) [Entitic vol] 7.4 fL 6.0 - 12.0 fL [facility] Platelets (Bld) [#/Vol] 357 10*3/uL [facility] RBC (Bld) [#/Vol] 4.03 10*6/uL Low 4.5 - 5.9 m/uL [facility] Segmented neutrophils/100 WBC (Bld) 62 % 36 - 66 % [facility] Segs Absolute 6.45 [facility] WBC (Bld) [#/Vol] 10.4 10*3/uL [facility] with Diffon 06-05-2022 Abs. Basophil 0.10 k/uL Normal 0.0-0.2 [facility] Comment on above: Performed By: #### C DP, LIVP, BMPX #### [facility] [place] [facility] [place] [address] Yard Switch Operator: You Bro DO Abs.Neutrophil (Seg) 6.45 k/uL Normal 1.3-9.1 [facility] Comment on above: Performed By: #### C DP, LIVP, BMPX #### [facility] [place] [address] [employer] Operator: You Bro DO Basophils/100 WBC (Bld) 1 % Normal 0-2 [facility] Comment on above: Performed By: #### C DP, LIVP, BMPX #### [facility] [address] [place] [address] [employer] Operator: You Bro DO Eosinophils (Bld) [#/Vol] 0.52 10*3/uL High 0.0-0.4 [facility] Comment on above: Performed By: #### C DP, LIVP, BMPX #### [facility] [place] [address] Yard Switch Operator: You Bro DO Eosinophils/100 WBC (Bld) 5 % High 0-4 [facility] Comment on above: Performed By: #### C DP, LIVP, BMPX #### [facility] [place] [address] Yard Switch Operator: You Bro DO Lymphocytes (Bld) [#/Vol] 2.50 10*3/uL Normal 1.0-4.8 [facility] Comment on above: Performed By: #### C DP, LIVP, BMPX #### [facility] [address] [place] [address] Yard [employer] Operator: You Bro DO Lymphocytes/100 WBC (Bld) 24 % Normal 24-44 [facility] Comment on above: Performed By: #### C DP, LIVP, BMPX #### [facility] [address] [place] [address] Yard Switch Operator: You Bro DO Monocytes (Bld) [#/Vol] 0.83 10*3/uL Normal 0.1-1.3 [facility] Comment on above: Performed By: #### C DP, LIVP, BMPX #### [facility] [place] [address] Yard Switch Operator: You Bro DO Monocytes/100 WBC (Bld) 8 % High 1-7 [facility] Comment on above: Performed By: #### C DP, LIVP, BMPX #### [facility] [place] [facility] [place] [address] Yard Switch Operator: You Bro DO Morphology Cale (Bld) [Interp] ANISOCYTOSIS PRESENT Normal [facility] Comment on above: Performed By: #### C DP, LIVP, BMPX #### [facility] [place] [facility] [place] [address] Yard Switch Operator: You Bro DO Neutrophil (Seg) 62 % Normal 36-66 [facility] Comment on above: Performed By: #### C DP, LIVP, BMPX #### [facility] [place] [facility] [place] [address] Yard Switch Operator: You Bro DO Erythrocyte distribution width (RBC) [Ratio] 14.3 % Normal 11.5-14.9 [facility] Comment on above: Performed By: #### C DP, LIVP, BMPX #### [facility] [place] [address] Yard Switch Operator: You Bro DO Hematocrit (Bld) [Volume fraction] 38.0 % Low 41-53 [facility] Comment on above: Performed By: #### C DP, LIVP, BMPX #### [facility] [place] [address] Yard Switch Operator: You Bro DO Hemoglobin (Bld) [Mass/Vol] 12.5 g/dL Low 13.5-17.5 [facility] Comment on above: Performed By: #### C DP, LIVP, BMPX #### [facility] [address] [place] [address] Yard Switch Operator: You Bro DO MCH (RBC) [Entitic mass] 31.1 pg Normal 26-34 [facility] Comment on above: Performed By: #### C DP, LIVP, BMPX #### [facility] [address] [place] [address] Yard Switch Operator: You Bro DO MCHC (RBC) [Mass/Vol] 33.1 g/dL Normal 31-37 [facility] Comment on above: Performed By: #### C DP, LIVP, BMPX #### [facility] [address] [place] [address] Yard Switch Operator: You Bro DO MCV (RBC) [Entitic vol] 94.2 fL Normal 80-100 [facility] Comment on above: Performed By: #### C DP, LIVP, BMPX #### [facility] [address] [place] [address] Yard Switch Operator: You Bro DO Platelet mean volume (Bld) [Entitic vol] 7.4 fL Normal 6.0-12.0 [facility] Comment on above: Performed By: #### C DP, LIVP, BMPX #### [facility] [address] [place] [address] Yard Switch Operator: You Bro DO Platelets (Bld) [#/Vol] 357 10*3/uL Normal 150-450 [facility] Comment on above: Performed By: #### C DP, LIVP, BMPX #### [facility] [address] [place] [address] Yard Switch Operator: You Bro DO RBC (Bld) [#/Vol] 4.03 10*6/uL Low 4.5-5.9 [facility] Comment on above: Performed By: #### C DP, LIVP, BMPX #### [facility] [address] [place] [address] Yard Switch Operator: You Bro DO WBC (Bld) [#/Vol] 10.4 10*3/uL Normal 3.5-11.0 [facility] Comment on above: Performed By: #### C DP, LIVP, BMPX #### [facility] [address] [place] [facility] [place] [address] Yard Switch Operator: You Bro DO Hepatic function panelon Albumin [Mass/Vol] 3.4 g/dL Low 3.5 - 5.2 g/dL [facility] ALP [Catalytic activity/Vol] 92 U/L 40 - 129 U/L [facility] ALT [Catalytic activity/Vol] 33 U/L 5 - 41 U/L [facility] AST [Catalytic activity/Vol] 30 U/L NINF - 40 U/L [facility] Bilirubin [Mass/Vol] 0.4 mg/dL 0.3 - 1 .2 mg/dL [facility] Bilirubin.direct [Mass/Vol] 0.1 mg/dL NINF - 0.3 mg/dL [facility] Bilirubin.indirect [Mass/Vol] 0.3 mg/dL 0.0 - 1.0 mg/dL [facility] Protein [Mass/Vol] 7.2 g/dL 6.4 - 8.3 g/dL [facility] Liver Profileon 06-05-2022 Albumin [Mass/Vol] 3.4 g/dL Low 3.5-5.2 [facility] Comment on above: Performed By: #### C DP, LIVP, BMPX #### [facility] [address] [place] [address] Yard Switch Operator: You Bro DO Alkaline Phos 92 U/L Normal 40-129 [facility] Comment on above: Performed By: #### C DP, LIVP, BMPX #### [facility] [address] [place] [address] Yard Switch Operator: You Bro DO ALT [Catalytic activity/Vol] 33 U/L Normal 5-41 [facility] Comment on above: Performed By: #### C DP, LIVP, BMPX #### [facility] [address] [place] [address] Yard Switch Operator: You Bro DO AST [Catalytic activity/Vol] 30 U/L Normal <40 [facility] Comment on above: Performed By: #### C DP, LIVP, BMPX #### [facility] [place] [address] Yard Switch Operator: You Bro DO Bilirubin [Mass/Vol] 0.4 mg/dL Normal 0.3-1.2 [facility] Comment on above: Performed By: #### C DP, LIVP, BMPX #### [facility] [address] [place] [address] Yard Switch Operator: You Bro DO Bilirubin, Indirect 0.3 mg/dL Normal 0.0-1.0 [facility] Comment on above: Performed By: #### C DP, LIVP, BMPX #### [facility] [address] [facility] [place] [address] Yard Switch Operator: You Bro DO Bilirubin.indirect [Mass/Vol] 0.1 mg/dL Normal <0.3 [facility] Comment on above: Performed By: #### C DP, LIVP, BMPX #### [facility] [address] [facility] [place] [address] Yard Switch Operator: You Bro DO Protein [Mass/Vol] 7.2 g/dL Normal 6.4-8.3 [facility] Comment on above: Performed By: #### C DP, LIVP, BMPX #### [facility] [address] [facility] [place] [address] Yard Switch Operator: You Bro DO No Panel Informationon 06-05 Interpretation and review of laboratory results Abnormal [facility] POC Glucose Fingerstickon Glucose [Mass/Vol] 216 mg/dL High 75 - 110 mg/dL [facility] Interpretation and review of laboratory results Abnormal [facility] Glucose [Mass/Vol] 178 mg/dL High 75 - 110 mg/dL [facility] Interpretation and review of laboratory results Abnormal [facility] Glucose [Mass/Vol] 218 mg/dL High 75 - 110 mg/dL [facility] Interpretation and review of laboratory results Abnormal [facility] Glucose [Mass/Vol] 156 mg/dL High 75 - 110 mg/dL [facility] Interpretation and review of laboratory results Abnormal [facility] Basic Metabolic Panelon 05-13 Anion gap [Moles/Vol] 12 mmol/L 9 - 17 mmol/L [facility] Calcium [Mass/Vol] 9.0 mg/dL 8.6 - 10. 4 mg/dL [facility] Chloride [Moles/Vol] 111 mmol/L High 98 - 10 7 mmol/L [facility] CO2 [Moles/Vol] 20 mmol/L 20 - 31 mmol/L [facility] Creatinine [Mass/Vol] 2.23 mg/dL High 0.70 - 1.20 mg/dL [facility] GFR/1.73 sq M.predicted MDRD (S/P/Bld) [Vol rate/Area] 33 mL/min/{1.73_m2} Low - PINF [facility] Comment on above: These results are not [...] 56 mg/dL Low 70 - 99 mg/dL [facility] Interpretation and review of laboratory results Abnormal [facility] Potassium [Moles/Vol] 4.4 mmol/L 3.7 - 5.3 mmol/L [facility] Sodium [Moles/Vol] 143 mmol/L 135 - 144 mmol/L [facility] Urea nitrogen [Mass/Vol] 27 mg/dL High 8 - 23 mg/dL [facility] Basic Metabolic Profon 06-04 Glucose [Mass/Vol] 56 mg/dL Low 70-99 [facility] Comment on above: Performed By: #### B MP #### [employer] [address] [place], [place] [id number] Yard Switch Operator: Rodrick Jones MD Anion gap [Moles/Vol] 12 mmol/L Normal 9-17 [facility] Comment on above: Performed By: #### B MP #### [facility] [place] [phone] Yard Switch Operator: Rodrick Jones MD Calcium [Mass/Vol] 9.0 mg/dL Normal 8.6-10.4 [facility] Comment on above: Performed By: #### B MP #### [facility] [employer] [address] [place] [address] Yard Switch Operator: Rodrick Jones MD Chloride [Moles/Vol] 111 mmol/L High 98-107 [facility] Comment on above: Performed By: #### B MP #### [facility] [employer] [address] [place] [address] Yard Switch Operator: Rodrick Jones MD CO2 [Moles/Vol] 20 mmol/L Normal 20-31 [facility] Comment on above: Performed By: #### B MP #### [facility] [employer] [address] [place] [address] Yard Switch Operator: Rodrick Jones MD Creatinine [Mass/Vol] 2.23 mg/dL High 0.70-1.20 [facility] Comment on above: Performed By: #### B MP #### [address] [address] Yard Switch Operator: Rodrick Jones MD GFR/1.73 sq M.predicted among non-blacks MDRD (S/P/Bld) [Vol rate/Area] 33 mL/min/{1.73_m2} Low >60 [facility] Comment on above: Result Comment: These results [...] secretion. Performed By: #### B MP #### [facility] [employer] [address] [place] [address] Yard Switch Operator: Rodrick Jones MD Potassium [Moles/Vol] 4.4 mmol/L Normal 3.7-5.3 [facility] Comment on above: Performed By: #### B MP #### [address] [place] [address] Yard Switch Operator: Rodrick Jones MD Sodium [Moles/Vol] 143 mmol/L Normal 135-144 [facility] Comment on above: Performed By: #### B MP #### [facility] [address] [place], [place] [phone] Yard Switch Operator: Rodrick Jones MD Urea nitrogen [Mass/Vol] 27 mg/dL High 8-23 [facility] Comment on above: Performed By: #### B MP #### [facility] [address] [place], [place] [phone] Yard Switch Operator: Rodrick Jones MD POC Glucose Fingerstickon Glucose [Mass/Vol] 213 mg/dL High 75 - 110 mg/dL [facility] Interpretation and review of laboratory results Abnormal [facility] Glucose [Mass/Vol] 215 mg/dL High 75 - 110 mg/dL [facility] Interpretation and review of laboratory results Abnormal [facility] Glucose [Mass/Vol] 107 mg/dL 75 - 110 mg/dL [facility] Glucose [Mass/Vol] 79 mg/dL 75 - 110 mg/dL [facility] Basic Metabolic Panelon 05-13 Anion gap [Moles/Vol] 14 mmol/L 9 - 17 mmol/L [facility] Calcium [Mass/Vol] 8.8 mg/dL 8.6 - 10. 4 mg/dL [facility] Chloride [Moles/Vol] 105 mmol/L 98 - 10 7 mmol/L [facility] CO2 [Moles/Vol] 20 mmol/L 20 - 31 mmol/L [facility] Creatinine [Mass/Vol] 2.05 mg/dL High 0.70 - 1.20 mg/dL [facility] GFR/1.73 sq M.predicted MDRD (S/P/Bld) [Vol rate/Area] 36 mL/min/{1.73_m2} Low - PINF [facility] Comment on above: These results are not [...] 197 mg/dL High 70 - 99 mg/dL [facility] Interpretation and review of laboratory results Abnormal [facility] Potassium [Moles/Vol] 4.5 mmol/L 3.7 - 5.3 mmol/L [facility] Comment on above: SPECIMEN SLIGHTLY HE MOLYZED, RESULTS MAY BE ADVERSELY AFFECTED. Sodium [Moles/Vol] 139 mmol/L 135 - 144 mmol/L [facility] Urea nitrogen [Mass/Vol] 26 mg/dL High 8 - 23 mg/dL [facility] Basic Metabolic Profon 06-03 Anion gap [Moles/Vol] 14 mmol/L Normal 9-17 [facility] Comment on above: Performed By: #### C RP, RENP, CBC, MG #### [facility] [address] [place] [address] Yard Switch Operator: Rodrick Jones MD Calcium [Mass/Vol] 8.8 mg/dL Normal 8.6-10.4 [facility] Comment on above: Performed By: #### C RP, RENP, CBC, MG #### [employer] [address] [place] [address] [phone] Yard Switch Operator: Rodrick Jones MD Chloride [Moles/Vol] 105 mmol/L Normal 98-107 [facility] Comment on above: Performed By: #### C RP, RENP, CBC, MG #### [employer] [address] [place] [address] Yard Switch Operator: Rodrick Jones MD CO2 [Moles/Vol] 20 mmol/L Normal 20-31 [facility] Comment on above: Performed By: #### C RP, RENP, CBC, MG #### [address] [address] Yard Switch Operator: Rodrick Jones MD Creatinine [Mass/Vol] 2.05 mg/dL High 0.70-1.20 [facility] Comment on above: Performed By: #### C RP, RENP, CBC, MG #### [address] [address] Yard Switch Operator: Rodrick Jones MD GFR/1.73 sq M.predicted among non-blacks MDRD (S/P/Bld) [Vol rate/Area] 36 mL/min/{1.73_m2} Low >60 [facility] Comment on above: Result Comment: These results [...] #### C RP, RENP, CBC, MG #### [address] [address] Yard Switch Operator: Rodrick Jones MD Glucose [Mass/Vol] 197 mg/dL High 70-99 [facility] Comment on above: Performed By: #### C RP, RENP, CBC, MG #### [facility] [employer] [address] [place] [address] Yard Switch Operator: Rodrick Jones MD Potassium [Moles/Vol] 4.5 mmol/L Normal 3.7-5.3 [facility] Comment on above: Result Comment: SPEC IMEN SLIGHTLY HEMOLYZED, RESULTS MAY BE ADVERSELY AFFECTED. Performed By: #### C RP, RENP, CBC, MG #### [facility] [address] [place] [address], [place] [phone] Yard Switch Operator: Rodrick Jones MD Sodium [Moles/Vol] 139 mmol/L Normal 135-144 [facility] Comment on above: Performed By: #### C RP, RENP, CBC, MG #### [facility] [address] [place], [place] [phone] Yard Switch Operator: Rodrick Jones MD Urea nitrogen [Mass/Vol] 26 mg/dL High 8- [facility] Comment on above: Performed By: #### C RP, RENP, CBC, MG #### [facility] [address] [place] [address] [phone] Yard Switch Operator: Rodrick Jones MD POC Glucose Fingerstickon Glucose [Mass/Vol] 140 mg/dL High 75 - 110 mg/dL [facility] Interpretation and review of laboratory results Abnormal [facility] Glucose [Mass/Vol] 181 mg/dL High 75 - 110 mg/dL [facility] Interpretation and review of laboratory results Abnormal [facility] Glucose [Mass/Vol] 206 mg/dL High 75 - 110 mg/dL [facility] Interpretation and review of laboratory results Abnormal [facility] Glucose [Mass/Vol] 107 mg/dL 75 - 110 mg/dL [facility] Glucose [Mass/Vol] 96 mg/dL 75 - 110 mg/dL [facility] Glucose [Mass/Vol] 71 mg/dL Low 75 - 110 mg/dL [facility] Interpretation and review of laboratory results Abnormal [facility] Basic Metab w/rfx MGon 06-02 Anion gap [Moles/Vol] 13 mmol/L Normal 9-17 [facility] Comment on above: Performed By: #### C RP, RENP, CBC, MG #### [facility] [address] [place] [address] Yard Switch Operator: Rodrick Jones MD Calcium [Mass/Vol] 8.6 mg/dL Normal 8.6-10.4 [facility] Comment on above: Performed By: #### C RP, RENP, CBC, MG #### [facility] [place], [place] [phone] Yard Switch Operator: Rodrick Jones MD Chloride [Moles/Vol] 108 mmol/L High 98-107 [facility] Comment on above: Performed By: #### C RP, RENP, CBC, MG #### [facility] [address] [place] [address] [phone] Yard Switch Operator: Rodrick Jones MD CO2 [Moles/Vol] 20 mmol/L Normal 20-31 [facility] Comment on above: Performed By: #### C RP, RENP, CBC, MG #### [employer] [address] [place] [address] [phone] Yard Switch Operator: Rodrick Jones MD Creatinine [Mass/Vol] 2.22 mg/dL High 0.70-1.20 [facility] Comment on above: Performed By: #### C RP, RENP, CBC, MG #### [employer] [address] [place] [address] [phone] [employer] Switch Operator: Rodrick Jones MD GFR/1.73 sq M.predicted among non-blacks MDRD (S/P/Bld) [Vol rate/Area] 33 mL/min/{1.73_m2} Low >60 [facility] Comment on above: Result Comment: These results [...] #### C RP, RENP, CBC, MG #### [employer] [address] [place], [place] [phone] Yard Switch Operator: Rodrick Jones MD Glucose [Mass/Vol] 181 mg/dL High 70-99 [facility] Comment on above: Performed By: #### C RP, RENP, CBC, MG #### [facility] [place] [address] Yard Switch Operator: Rodrick Jones MD Potassium [Moles/Vol] 4.0 mmol/L Normal 3.7-5.3 [facility] Comment on above: Performed By: #### C RP, RENP, CBC, MG #### [facility] [place], [place] [phone] Yard Switch Operator: Rodrick Jones MD Sodium [Moles/Vol] 141 mmol/L Normal 135-144 [facility] Comment on above: Performed By: #### C RP, RENP, CBC, MG #### [facility] [address] [place] [address] [phone] Yard Switch Operator: Rodrick Jones MD Urea nitrogen [Mass/Vol] 31 mg/dL High 8-23 [facility] Comment on above: Performed By: #### C RP, RENP, CBC, MG #### [facility] [address] [place] [address] [phone] Yard Switch Operator: Rodrick Jones MD Basic Metabolic Panel w/ Ref artis to MGon 06-02-2022 Anion gap [Moles/Vol] 13 mmol/L 9 - 17 mmol/L [facility] Calcium [Mass/Vol] 8.6 mg/dL 8.6 - 10. 4 mg/dL [facility] Chloride [Moles/Vol] 108 mmol/L High 98 - 10 7 mmol/L [facility] CO2 [Moles/Vol] 20 mmol/L 20 - 31 mmol/L [facility] Creatinine [Mass/Vol] 2.22 mg/dL High 0.70 - 1.20 mg/dL [facility] GFR/1.73 sq M.predicted MDRD (S/P/Bld) [Vol rate/Area] 33 mL/min/{1.73_m2} Low - PINF [facility] Comment on above: These results are not [...] 181 mg/dL High 70 - 99 mg/dL [facility] Interpretation and review of laboratory results Abnormal [facility] [employer] Potassium [Moles/Vol] 4.0 mmol/L 3.7 - 5.3 mmol/L [facility] [employer] Sodium [Moles/Vol] 141 mmol/L 135 - 144 mmol/L [facility] [employer] Urea nitrogen [Mass/Vol] 31 mg/dL High 8 - 23 mg/dL [facility] [employer] [facility] [employer] CBCon 06-02-2022 Erythrocyte distribution width (RBC) [Ratio] 13.8 % Normal 11.8-14.4 [facility] Comment on above: Performed By: #### C RP, RENP, CBC, MG #### [employer] [facility] [place] [address] Yard Switch Operator: Rodrick Jones MD Hematocrit (Bld) [Volume fraction] 40.3 % Low 40.7-50.3 [facility] Comment on above: Performed By: #### C RP, RENP, CBC, MG #### [employer] [address] [place] [address] Yard Switch Operator: Rodrick Jones MD Hemoglobin (Bld) [Mass/Vol] 12.9 g/dL Low 13.0-17.0 [facility] Comment on above: Performed By: #### C RP, RENP, CBC, MG #### [employer] [address] [place] [address] Yard Switch Operator: Rodrick Jones MD MCH (RBC) [Entitic mass] 30.8 pg Normal 25.2-33.5 [facility] Comment on above: Performed By: #### C RP, RENP, CBC, MG #### [address] [address] Yard Switch Operator: Rodrick Jones MD MCHC (RBC) [Mass/Vol] 32.0 g/dL Normal 28.4-34.8 [facility] Comment on above: Performed By: #### C RP, RENP, CBC, MG #### [place] [address] Yard Switch Operator: Rodrick Jones MD MCV (RBC) [Entitic vol] 96.2 fL Normal 82.6-102.9 [facility] Comment on above: Performed By: #### C RP, RENP, CBC, MG #### [place] [address] Yard Switch Operator: Rodrick Jones MD NRBC Automated 0.0 per 100 WBC Normal 0.0 [facility] Comment on above: Performed By: #### C RP, RENP, CBC, MG #### [place] [address] Yard Switch Operator: Rodrick Jones MD Platelet mean volume (Bld) [Entitic vol] 10.3 fL Normal 8.1-13.5 [facility] Comment on above: Performed By: #### C RP, RENP, CBC, MG #### [place] [address] Yard Switch Operator: Rodrick Jones MD Platelets (Bld) [#/Vol] 336 10*3/uL Normal 138-453 [facility] Comment on above: Performed By: #### C RP, RENP, CBC, MG #### [address], [place] [phone] Yard Switch Operator: Rodrick Jones MD RBC (Bld) [#/Vol] 4.19 10*6/uL Low 4.21-5.77 [facility] Comment on above: Performed By: #### C RP, RENP, CBC, MG #### [facility] [address] [place], [place] [phone] Yard Switch Operator: Rodrick Jones MD WBC (Bld) [#/Vol] 10.4 10*3/uL Normal 3.5-11.3 [facility] Comment on above: Performed By: #### C RP, RENP, CBC, MG #### [facility] [place], [place] [phone] Yard Switch Operator: Rodrick Jones MD Hematocrit (Bld) [Volume fraction] 40.3 % Low 40.7 - 50.3 % [facility] Hemoglobin (Bld) [Mass/Vol] 12.9 g/dL Low 13.0 - 17.0 g/dL [facility] Interpretation and review of laboratory results Abnormal [facility] MCH (RBC) [Entitic mass] 30.8 pg 25.2 - 33.5 pg [facility] MCHC (RBC) [Mass/Vol] 32.0 g/dL 28.4 - 34.8 g/dL [facility] MCV (RBC) [Entitic vol] 96.2 fL 82.6 - 102.9 fL [facility] NRBC Automated 0.0 0.0 per 100 WBC [facility] Platelet distribution width (Bld) [Ratio] 13.8 % 11.8 - 14.4 % [facility] Platelet mean volume (Bld) [Entitic vol] 10.3 fL 8.1 - 13.5 fL [facility] Platelets (Bld) [#/Vol] 336 10*3/uL [facility] RBC (Bld) [#/Vol] 4.19 10*6/uL Low 4.21 - 5.7 7 m/uL [facility] WBC (Bld) [#/Vol] 10.4 10*3/uL [facility] Cult,Bloodon 06-02-2022 Cult,Blood Specimen Description .BLOOD Culture NO GROWTH 5 DAYS Report Status FINAL 06/02/2022 [facility] Comment on above: Performed By: #### B MP, CBC #### [facility] [employer] [address] [place], [place] [phone] Yard Switch Operator: Rodrick Jones MD Cult,Blood Specimen Description .BLOOD Culture NO GROWTH 5 DAYS Report Status FINAL 06/02/2022 [facility] Comment on above: Performed By: #### I FX, URI, C4, PE, FKLLC, C3, PTHNCA #### [facility] [address] [place] [address] Yard Switch Operator: Rodrick Jones MD Culture, Blood 1on 3 Microorganism identified Cx Nom (Unsp spec) NO GROWTH 5 DAYS [facility] Specimen Description .BLOOD [facility] Microorganism identified Cx Nom (Unsp spec) NO GROWTH 5 DAYS [facility] Specimen Description .BLOOD [facility] MRI BRAIN WO CONTRASTon 05-13 MRI BRAIN WO CONTRAST EXAMINATION: MRI OF THE BRAIN WITHOUT CONTRAST 06/02/2022 6:57 pm TECHNIQUE: Multiplanar multisequence MRI of the brain was performed without the administration of intravenous contrast. COMPARISON: None. HISTORY: ORDERING SYSTEM PROVIDED HISTORY: tremors TECHNOLOGIST PROVIDED HISTORY: tremors Reason for Exam: Tremors. FINDINGS: INTRACRANIAL STRUCTURES/VENTRICLES : There is no acute infarct. No mass [...] Vandana Tyson MD 06/02/22 Final result Normal [facility] 1. No acute intracranial abnormality. 2. Microangiopathic change. [facility] EXAMINATION: MRI OF THE BRAIN WITHOUT CONTRAST 06/02/2022 6:57 pm TECHNIQUE: Multiplanar multisequence MRI of the brain was performed without the administration of intravenous contrast. COMPARISON: None. HISTORY: ORDERING SYSTEM PROVIDED HISTORY: tremors TECHNOLOGIST PROVIDED HISTORY: tremors Reason for Exam: Tremors. FINDINGS: INTRACRANIAL STRUCTURES/VENTRICLES : There is no acute infarct. No mass [...] The soft tissues demonstrate no acute abnormality. [facility] Vandana Tyson MD - 06/02/2022 EXAMINATION: MRI OF THE BRAIN WITHOUT CONTRAST 06/02/2022 6:57 pm TECHNIQUE: Multiplanar multisequence MRI of the brain was performed without the administration of intravenous contrast. COMPARISON: None. HISTORY: ORDERING SYSTEM PROVIDED HISTORY: tremors TECHNOLOGIST PROVIDED HISTORY: tremors Reason for Exam: Tremors. FINDINGS: INTRACRANIAL STRUCTURES/VENTRICLES : There is no acute infarct. No mass [...] No acute intracranial abnormality. 2. Microangiopathic change. [employer] Work Phone: Radiology Study observation (narrative) [employer] Work Phone: MRI BRAIN WO CONTRASTOrdered By: Vandana Tyson on 06-02-2022 [employer] Work Phone: POC Glucose Fingerstickon Glucose [Mass/Vol] 89 mg/dL 75 - 110 mg/dL [facility] Glucose [Mass/Vol] 110 mg/dL 75 - 110 mg/dL [facility] Glucose [Mass/Vol] 75 mg/dL 75 - 110 mg/dL [facility] Glucose [Mass/Vol] 64 mg/dL Low 75 - 110 mg/dL [facility] Interpretation and review of laboratory results Abnormal [facility] Glucose [Mass/Vol] 85 mg/dL 75 - 110 mg/dL [facility] Glucose [Mass/Vol] 57 mg/dL Low 75 - 110 mg/dL [facility] Interpretation and review of laboratory results Abnormal [facility] Glucose [Mass/Vol] 49 mg/dL Low 75 - 110 mg/dL [facility] Interpretation and review of laboratory results Abnormal [facility] Glucose [Mass/Vol] 181 mg/dL High 75 - 110 mg/dL [facility] Interpretation and review of laboratory results Abnormal [facility] Glucose [Mass/Vol] 183 mg/dL High 75 - 110 mg/dL [facility] Interpretation and review of laboratory results Abnormal [facility] [employer] Basic Metab w/rfx MGon 06-01 Anion gap [Moles/Vol] 12 mmol/L Normal 9-17 [facility] Comment on above: Performed By: #### B MP, CBC #### [address] [address] Yard Switch Operator: Rodrick Jones MD Calcium [Mass/Vol] 8.6 mg/dL Normal 8.6-10.4 [facility] Comment on above: Performed By: #### B MP, CBC #### [address] [address] Yard Switch Operator: Rodrick Jones MD Chloride [Moles/Vol] 108 mmol/L High 98-107 [facility] Comment on above: Performed By: #### B MP, CBC #### [facility] [employer] [address] [place] [address] Yard Switch Operator: Rodrick Jones MD CO2 [Moles/Vol] 22 mmol/L Normal 20-31 [facility] Comment on above: Performed By: #### B MP, CBC #### [facility] [employer] [address] [place] [address] Yard Switch Operator: Rodrick Jones MD Creatinine [Mass/Vol] 2.52 mg/dL High 0.70-1.20 [facility] Comment on above: Performed By: #### B MP, CBC #### [facility] [employer] [address] [place] [address] Yard Switch Operator: Rodrick Jones MD GFR/1.73 sq M.predicted among non-blacks MDRD (S/P/Bld) [Vol rate/Area] 28 mL/min/{1.73_m2} Low >60 [facility] Comment on above: Result Comment: These results [...] Performed By: #### B CECY, CBC #### [facility] [address] [place] [address] Yard Switch Operator: Rodrick Jones MD Glucose [Mass/Vol] 74 mg/dL Normal 70-99 [facility] Comment on above: Performed By: #### B MP, CBC #### [facility] [employer] [address] [place] [address] Yard Switch Operator: Rodrick Jones MD Potassium [Moles/Vol] 3.6 mmol/L Low 3.7-5.3 [facility] Comment on above: Performed By: #### B CECY, CBC #### [facility] [employer] [address] [place] [address] Yard Switch Operator: Rodrick Jones MD Sodium [Moles/Vol] 142 mmol/L Normal 135-144 [facility] Comment on above: Performed By: #### B CECY, CBC #### [facility] [address] [place] [address] Yard Switch Operator: Rodrick Jones MD Urea nitrogen [Mass/Vol] 40 mg/dL High 8-23 [facility] Comment on above: Performed By: #### B CECY, CBC #### [facility] [address] [place] [address] Yard Switch Operator: Rodrick Jones MD Basic Metabolic Panel w/ Ref artis to MGon 06-01-2022 Anion gap [Moles/Vol] 12 mmol/L 9 - 17 mmol/L [facility] Calcium [Mass/Vol] 8.6 mg/dL 8.6 - 10. 4 mg/dL [facility] Chloride [Moles/Vol] 108 mmol/L High 98 - 10 7 mmol/L [facility] CO2 [Moles/Vol] 22 mmol/L 20 - 31 mmol/L [facility] Creatinine [Mass/Vol] 2.52 mg/dL High 0.70 - 1.20 mg/dL [facility] GFR/1.73 sq M.predicted MDRD (S/P/Bld) [Vol rate/Area] 28 mL/min/{1.73_m2} Low - PINF [facility] Comment on above: These results are not [...] [Mass/Vol] 74 mg/dL 70 - 99 mg/dL [facility] Interpretation and review of laboratory results Abnormal [facility] Potassium [Moles/Vol] 3.6 mmol/L Low 3.7 - 5.3 mmol/L [facility] Sodium [Moles/Vol] 142 mmol/L 135 - 144 mmol/L [facility] Urea nitrogen [Mass/Vol] 40 mg/dL High 8 - 23 mg/dL [facility] CBCon 06-01-2022 Erythrocyte distribution width (RBC) [Ratio] 14.3 % Normal 11.8-14.4 [facility] Comment on above: Performed By: #### B MP, CBC #### [employer] [address] [place] [address] Yard Switch Operator: Rodrick Jones MD Hematocrit (Bld) [Volume fraction] 38.3 % Low 40.7-50.3 [facility] Comment on above: Performed By: #### B MP, CBC #### [employer] [address] [place] [address] Yard Switch Operator: Rodrick Jones MD Hemoglobin (Bld) [Mass/Vol] 12.5 g/dL Low 13.0-17.0 [facility] Comment on above: Performed By: #### B MP, CBC #### [address] [address] Yard Switch Operator: Rodrick Jones MD MCH (RBC) [Entitic mass] 30.8 pg Normal 25.2-33.5 [facility] Comment on above: Performed By: #### B MP, CBC #### [address] [address] Yard Switch Operator: Rodrick Jones MD MCHC (RBC) [Mass/Vol] 32.6 g/dL Normal 28.4-34.8 [facility] Comment on above: Performed By: #### B MP, CBC #### [address] [address] Yard Switch Operator: Rodrick Jones MD MCV (RBC) [Entitic vol] 94.3 fL Normal 82.6-102.9 [facility] Comment on above: Performed By: #### B MP, CBC #### [address] [address] Yard Switch Operator: Rodrick Jones MD NRBC Automated 0.0 per 100 WBC Normal 0.0 [facility] Comment on above: Performed By: #### B MP, CBC #### [address] [address] Yard Switch Operator: Rodrick Jones MD Platelet mean volume (Bld) [Entitic vol] 11.0 fL Normal 8.1-13.5 [facility] Comment on above: Performed By: #### B MP, CBC #### [address] [address] Yard Switch Operator: Rodrick Jones MD Platelets (Bld) [#/Vol] 334 10*3/uL Normal 138-453 [facility] Comment on above: Performed By: #### B MP, CBC #### [address] [address] Yard Switch Operator: Rodrick Jones MD RBC (Bld) [#/Vol] 4.06 10*6/uL Low 4.21-5.77 [facility] Comment on above: Performed By: #### B MP, CBC #### [facility] [address] [place], [place] [phone] Yard Switch Operator: Rodrick Jones MD WBC (Bld) [#/Vol] 9.8 10*3/uL Normal 3.5-11.3 [facility] Comment on above: Performed By: #### B MP, CBC #### [facility] [address] [place] [address] Yard Switch Operator: Rodrick Jones MD Hematocrit (Bld) [Volume fraction] 38.3 % Low 40.7 - 50.3 % [facility] Hemoglobin (Bld) [Mass/Vol] 12.5 g/dL Low 13.0 - 17.0 g/dL [facility] Interpretation and review of laboratory results Abnormal [facility] MCH (RBC) [Entitic mass] 30.8 pg 25.2 - 33.5 pg [facility] MCHC (RBC) [Mass/Vol] 32.6 g/dL 28.4 - 34.8 g/dL [facility] MCV (RBC) [Entitic vol] 94.3 fL 82.6 - 102.9 fL [facility] NRBC Automated 0.0 0.0 per 100 WBC [facility] Platelet distribution width (Bld) [Ratio] 14.3 % 11.8 - 14.4 % [facility] Platelet mean volume (Bld) [Entitic vol] 11.0 fL 8.1 - 13.5 fL [facility] Platelets (Bld) [#/Vol] 334 10*3/uL [facility] RBC (Bld) [#/Vol] 4.06 10*6/uL Low 4.21 - 5.7 7 m/uL [facility] WBC (Bld) [#/Vol] 9.8 10*3/uL [facility] CULTURE BLOODon 06-01-2022 Microscopic examination of [...] 4 S F Oxacillin 2 R F Quinupristin/Dalfopri stin 0.5 S F Beta-Lactamase Pos POS F Rifampicin >=32 R F Tetracycline 2 S F Trimethoprim/Sulfamet hoxazole <=10 S F Vancomycin 1 S F ORGANISM 2 Staphylococcus epidermidis ANTIBIOTIC M.I.C RX STATUS Beta-Lactamase Pos POS F Benzylpenicillin 0.06 R F Oxacillin <=0.25 S F Gentamicin <=0.5 S F Ciprofloxacin <=0.5 S F Levofloxacin 0.25 S F Inducible Clindamycin Resistance Neg NEG F Erythromycin >=8 R F Clindamycin <=0.25 S F Quinupristin/Dalfopri stin <=0.25 S F Linezolid 4 S F Vancomycin 2 S F Tetracycline 8 I F Rifampicin <=0.5 S F Trimethoprim/Sulfamet hoxazole <=10 S F Normal [facility] Comment on above: Performed By: #### C #### [facility] [address] [place] [address] Dr. Kalie Rodas POC Glucose Fingerstickon Glucose [Mass/Vol] 171 mg/dL High 75 - 110 mg/dL [facility] Interpretation and review of laboratory results Abnormal [facility] Glucose [Mass/Vol] 236 mg/dL High 75 - 110 mg/dL [facility] Interpretation and review of laboratory results Abnormal [facility] Glucose [Mass/Vol] 269 mg/dL High 75 - 110 mg/dL [facility] Interpretation and review of laboratory results Abnormal [facility] Glucose [Mass/Vol] 203 mg/dL High 75 - 110 mg/dL [facility] Interpretation and review of laboratory results Abnormal [facility] Glucose [Mass/Vol] 94 mg/dL 75 - 110 mg/dL [facility] Glucose [Mass/Vol] 144 mg/dL High 75 - 110 mg/dL [facility] Interpretation and review of laboratory results Abnormal [facility] Glucose [Mass/Vol] 58 mg/dL Low 75 - 110 mg/dL [facility] Interpretation and review of laboratory results Abnormal [facility] Glucose [Mass/Vol] 70 mg/dL Low 75 - 110 mg/dL [facility] Interpretation and review of laboratory results Abnormal [facility] Glucose [Mass/Vol] 89 mg/dL 75 - 110 mg/dL [facility] Glucose [Mass/Vol] 59 mg/dL Low 75 - 110 mg/dL [facility] Interpretation and review of laboratory results Abnormal [facility] Glucose [Mass/Vol] 50 mg/dL Low 75 - 110 mg/dL [facility] Comment on above: Critical Noted Interpretation and review of laboratory results Abnormal [facility] Glucose [Mass/Vol] 60 mg/dL Low 75 - 110 mg/dL [facility] Interpretation and review of laboratory results Abnormal [facility] Basic Metab w/rfx MGon 05-31 Anion gap [Moles/Vol] 14 mmol/L Normal 9-17 [facility] Comment on above: Performed By: #### I FX, URI, C4, PE, FKLLC, C3, PTHNCA #### [facility] [address] [place] [address] Yard Switch Operator: Rodrick Jones MD Calcium [Mass/Vol] 8.4 mg/dL Low 8.6-10.4 [facility] Comment on above: Performed By: #### I FX, URI, C4, PE, FKLLC, C3, PTHNCA #### [address] [address] Yard Switch Operator: Rodrick Jones MD Chloride [Moles/Vol] 105 mmol/L Normal 98-107 [facility] Comment on above: Performed By: #### I FX, URI, C4, PE, FKLLC, C3, PTHNCA #### [address] [address] Yard Switch Operator: Rodrick Jones MD CO2 [Moles/Vol] 21 mmol/L Normal 20-31 [facility] Comment on above: Performed By: #### I FX, URI, C4, PE, FKLLC, C3, PTHNCA #### [address] [address] Yard Switch Operator: Rodrick Jones MD Creatinine [Mass/Vol] 3.07 mg/dL High 0.70-1.20 [facility] Comment on above: Performed By: #### I FX, URI, C4, PE, FKLLC, C3, PTHNCA #### [address] [address] Yard Switch Operator: Rodrick Jones MD GFR/1.73 sq M.predicted among non-blacks MDRD (S/P/Bld) [Vol rate/Area] 22 mL/min/{1.73_m2} Low >60 [facility] Comment on above: Result Comment: These results [...] URI, C4, PE, FKLLC, C3, PTHNCA #### [address] [address] Yard Switch Operator: Rodrick Jones MD Glucose [Mass/Vol] 183 mg/dL High 70-99 [facility] Comment on above: Performed By: #### I FX, URI, C4, PE, FKLLC, C3, PTHNCA #### [address] [address] Yard Switch Operator: Rodrick Jones MD Potassium [Moles/Vol] 3.8 mmol/L Normal 3.7-5.3 [facility] Comment on above: Performed By: #### I FX, URI, C4, PE, FKLLC, C3, PTHNCA #### [address] [address] Yard Switch Operator: Rodrick Jones MD Sodium [Moles/Vol] 140 mmol/L Normal 135-144 [facility] Comment on above: Performed By: #### I FX, URI, C4, PE, FKLLC, C3, PTHNCA #### [address] [address] Yard Switch Operator: Rodrick Jones MD Urea nitrogen [Mass/Vol] 54 mg/dL High 8-23 [facility] Comment on above: Performed By: #### I FX, URI, C4, PE, FKLLC, C3, PTHNCA #### [address] [address] Yard Switch Operator: Rodrick Jones MD Basic Metabolic Panel w/ Ref artis to MGon 05-31-2022 Anion gap [Moles/Vol] 14 mmol/L 9 - 17 mmol/L [facility] Calcium [Mass/Vol] 8.4 mg/dL Low 8.6 - 10. 4 mg/dL [facility] Chloride [Moles/Vol] 105 mmol/L 98 - 10 7 mmol/L [facility] CO2 [Moles/Vol] 21 mmol/L 20 - 31 mmol/L [facility] Creatinine [Mass/Vol] 3.07 mg/dL High 0.70 - 1.20 mg/dL [facility] GFR/1.73 sq M.predicted MDRD (S/P/Bld) [Vol rate/Area] 22 mL/min/{1.73_m2} Low - PINF [facility] Comment on above: These results are not [...] 183 mg/dL High 70 - 99 mg/dL [facility] Interpretation and review of laboratory results Abnormal [facility] Potassium [Moles/Vol] 3.8 mmol/L 3.7 - 5.3 mmol/L [facility] Sodium [Moles/Vol] 140 mmol/L 135 - 144 mmol/L [facility] Urea nitrogen [Mass/Vol] 54 mg/dL High 8 - 23 mg/dL [facility] CBCon 05-31-2022 Erythrocyte distribution width (RBC) [Ratio] 14.2 % Normal 11.8-14.4 [facility] Comment on above: Performed By: #### I FX, URI, C4, PE, FKLLC, C3, PTHNCA #### [employer] [facility] [place], [place] [phone] Yard Switch Operator: Rodrick Jones MD Hematocrit (Bld) [Volume fraction] 38.1 % Low 40.7-50.3 [facility] Comment on above: Performed By: #### I FX, URI, C4, PE, FKLLC, C3, PTHNCA #### [employer] [address] [place] [phone] Yard Switch Operator: Rodrick Jones MD Hemoglobin (Bld) [Mass/Vol] 12.5 g/dL Low 13.0-17.0 [facility] Comment on above: Performed By: #### I FX, URI, C4, PE, FKLLC, C3, PTHNCA #### [address] [address] Yard Switch Operator: Rodrick Jones MD MCH (RBC) [Entitic mass] 30.6 pg Normal 25.2-33.5 [facility] Comment on above: Performed By: #### I FX, URI, C4, PE, FKLLC, C3, PTHNCA #### [place] [address] Yard Switch Operator: Rodrick Jones MD MCHC (RBC) [Mass/Vol] 32.8 g/dL Normal 28.4-34.8 [facility] Comment on above: Performed By: #### I FX, URI, C4, PE, FKLLC, C3, PTHNCA #### [place] [address] Yard Switch Operator: Rodrick Jones MD MCV (RBC) [Entitic vol] 93.4 fL Normal 82.6-102.9 [facility] Comment on above: Performed By: #### I FX, URI, C4, PE, FKLLC, C3, PTHNCA #### [place] [address] Yard Switch Operator: Rodrick Jones MD NRBC Automated 0.0 per 100 WBC Normal 0.0 [facility] Comment on above: Performed By: #### I FX, URI, C4, PE, FKLLC, C3, PTHNCA #### [place] [address] Yard Switch Operator: Rodrick Jones MD Platelet mean volume (Bld) [Entitic vol] 10.2 fL Normal 8.1-13.5 [facility] Comment on above: Performed By: #### I FX, URI, C4, PE, FKLLC, C3, PTHNCA #### [facility] [employer] [address] [place] [address] Yard Switch Operator: Rodrick Jones MD Platelets (Bld) [#/Vol] 227 10*3/uL Normal 138-453 [facility] Comment on above: Performed By: #### I FX, URI, C4, PE, FKLLC, C3, PTHNCA #### [facility] [employer] [address] [place] [phone] Yard Switch Operator: Rodrick Jones MD RBC (Bld) [#/Vol] 4.08 10*6/uL Low 4.21-5.77 [facility] Comment on above: Performed By: #### I FX, URI, C4, PE, FKLLC, C3, PTHNCA #### [facility] [employer] [address] [place] [address] [phone] Yard Switch Operator: Rodrick Jones MD WBC (Bld) [#/Vol] 7.9 10*3/uL Normal 3.5-11.3 [facility] Comment on above: Performed By: #### I FX, URI, C4, PE, FKLLC, C3, PTHNCA #### [address] [phone] Yard Switch Operator: Rodrick Jones MD Hematocrit (Bld) [Volume fraction] 38.1 % Low 40.7 - 50.3 % [facility] Hemoglobin (Bld) [Mass/Vol] 12.5 g/dL Low 13.0 - 17.0 g/dL [facility] Interpretation and review of laboratory results Abnormal [facility] MCH (RBC) [Entitic mass] 30.6 pg 25.2 - 33.5 pg [facility] MCHC (RBC) [Mass/Vol] 32.8 g/dL 28.4 - 34.8 g/dL [facility] MCV (RBC) [Entitic vol] 93.4 fL 82.6 - 102.9 fL [facility] NRBC Automated 0.0 0.0 per 100 WBC [facility] Platelet distribution width (Bld) [Ratio] 14.2 % 11.8 - 14.4 % [facility] Platelet mean volume (Bld) [Entitic vol] 10.2 fL 8.1 - 13.5 fL [facility] Platelets (Bld) [#/Vol] 227 10*3/uL [facility] RBC (Bld) [#/Vol] 4.08 10*6/uL Low 4.21 - 5.7 7 m/uL [facility] WBC (Bld) [#/Vol] 7.9 10*3/uL [facility] EKG 12 LeadOrdered By: Unkno wn Result on 05-31-2022 Atrial Rate 82 BPM [facility] P-R Interval 186 ms [facility] Q-T Interval 396 ms [facility] QRS Duration 108 ms [facility] QTc Calculation (Bazett) 462 ms [facility] R [place] -155 degrees [facility] T [place] -172 degrees [facility] Ventricular Rate 82 BPM [facility] EKG 12 Leadon 05-31-2022 Normal sinus rhythm Right superior axis deviation T wave abnormality, consider inferior ischemia Abnormal ECG No previous ECGs available [facility] Result, Unknown Provider - 05/31/2022 Normal sinus rhythm Right superior axis deviation T wave abnormality, consider inferior ischemia Abnormal ECG No previous ECGs available [facility] Work Phone: Electrophoresis Protein, Ser umon 05-31-2022 Albumin % 51 % 45 - 65 % [facility] Albumin [Mass/Vol] 3.4 g/dL 3.2 - 5.2 g/dL [facility] Alpha 1 % 4 % 3 - 6 % [facility] Alpha 1 globulin Elph [Mass/Vol] 0.3 g/dL 0.1 - 0.4 g/dL [facility] Alpha 2 % 16 % High 6 - 13 % [facility] Alpha 2 globulin Elph [Mass/Vol] 1.1 g/dL High 0.5 - 0.9 g/dL [facility] Beta globulin Elph [Mass/Vol] 0.9 g/dL 0.5 - 1.1 g/dL [facility] Beta Percent 14 % 11 - 19 % [facility] Gamma Globulin % 15 % 9 - 20 % [facility] Gamma globulin Elph [Mass/Vol] 1 g/dL 0.5 - 1.5 g/dL [facility] Interpretation and review of laboratory results Abnormal [facility] Pathologist Cyto stain Nom (Cvx/Vag) [ID] ELECTRONICALLY SIGNED. KUSUM VILLAFANA M.D. [facility] Protein [Mass/Vol] 6.7 g/dL 6.4 - 8.3 g/dL [facility] Protein Electrophoresis, Serum ELEVATED ALPHA 2 GLOBULINS. MAY BE OBSERVED IN A VARIETY OF CONDITIONS ASSOCIATED WITH ACUTE TISSUE DAMAGE/NECROSIS AND/OR ACUTE INFECTION/INFLAMMATIO N, AND ALSO NEPHROTIC DISEASE. [facility] Comment on above: IMMUNOFIXATION IS NE GATIVE FOR MONOCLONAL IMMUNOGLOBULIN. Total Prot. Sum 6.7 g/dL 6.3 - 8.2 g/dL [facility] Total Prot. Sum,% 100 % 98 - 102 % [facility] Hemoglobin A1Con 05-31-2022 Glucose [Mass/Vol] 160 mg/dL Normal [facility] Comment on above: Result Comment: The ADA and AACC recommend providing the estimated average glucose result to permit better patient understanding of their HBA1c result. Performed By: #### B MP, CBC #### [employer] [address] [place] [address] Yard Switch Operator: Rodrick Jones MD HbA1c (Bld) [Mass fraction] 7.2 % High 4.0-6.0 [facility] Comment on above: Performed By: #### B MP, CBC #### [employer] [address] [place], [place] [phone] Yard Switch Operator: Rodrick Jones MD Average glucose Estimated from glycated hemoglobin (Bld) [Mass/Vol] 160 mg/dL [facility] Comment on above: The ADA and AACC rec ommend providing the estimated average glucose result to permit better patient understanding of their HBA1c result. HbA1c (Bld) [Mass fraction] 7.2 % High 4.0 - 6.0 % [facility] Interpretation and review of laboratory results Abnormal [facility] Immunofixation serum profile on 05-31-2022 Pathologist Cyto stain Nom (Cvx/Vag) [ID] ELECTRONICALLY SIGNED. KUSUM VILLAFANA M.D. [facility] Serum IFX Interp IMMUNOFIXATION IS NEGATIVE FOR MONOCLONAL IMMUNOGLOBULIN. [facility] Immunofixation,Bloodon 05-31 IFX - Interpret. IMMUNOFIXATION IS NEGATIVE FOR MONOCLONAL IMMUNOGLOBULIN. Normal [facility] Comment on above: Performed By: #### B MP, CBC #### [facility] [address] [place], [place] [phone] Yard Switch Operator: Rodrick Jones MD No Panel Informationon 05-31 Interpretation and review of laboratory results Abnormal [facility] POC Glucose Fingerstickon Glucose [Mass/Vol] 63 mg/dL Low 75 - 110 mg/dL [facility] Interpretation and review of laboratory results Abnormal [facility] Glucose [Mass/Vol] 81 mg/dL 75 - 110 mg/dL [facility] Glucose [Mass/Vol] 68 mg/dL Low 75 - 110 mg/dL [facility] Glucose [Mass/Vol] 135 mg/dL High 75 - 110 mg/dL [facility] Glucose [Mass/Vol] 57 mg/dL Low 75 - 110 mg/dL [facility] Comment on above: Critical Noted Interpretation and review of laboratory results Abnormal [facility] Glucose [Mass/Vol] 75 mg/dL 75 - 110 mg/dL [facility] Glucose [Mass/Vol] 218 mg/dL High 75 - 110 mg/dL [facility] Interpretation and review of laboratory results Abnormal [facility] Glucose [Mass/Vol] 238 mg/dL High 75 - 110 mg/dL [facility] Interpretation and review of laboratory results Abnormal [facility] Glucose [Mass/Vol] 169 mg/dL High 75 - 110 mg/dL [facility] Interpretation and review of laboratory results Abnormal [facility] Prot. Electroph, Blon 2022 Pathologist Review: ELECTRONICALLY SIGNED. KUSUM VILLAFANA M.D. Normal [facility] Comment on above: Performed By: #### B MP, CBC #### [facility] [employer] [address] [place] [address] [phone] Yard Switch Operator: Rodrick Jones MD Prot. Elect-Interp ELEVATED ALPHA 2 GLOBULINS. MAY BE OBSERVED IN A VARIETY OF CONDITIONS [facility] Comment on above: Result Comment: ASSO CIATED WITH ACUTE TISSUE DAMAGE/NECROSIS AND/OR ACUTE INFECTION/INFLAMMATION, AND ALSO NEPHROTIC DISEASE. IMMUNOFIXATION IS NEGATIVE FOR MONOCLONAL IMMUNOGLOBULIN. Performed By: #### B MP, CBC #### [facility] [address] [place] [phone] Yard Switch Operator: Rodrick Jones MD CBCon 7 Erythrocyte distribution width (RBC) [Ratio] 14.2 % Normal 11.8-14.4 [facility] Comment on above: Performed By: #### B MP, CBC #### [facility] [address] [place] [phone] Yard Switch Operator: Rodrick Jones MD Hematocrit (Bld) [Volume fraction] 41.1 % Normal 40.7-50.3 [facility] Comment on above: Performed By: #### B MP, CBC #### [employer] [address] [place] [address] [phone] Yard Switch Operator: Rodrick Jones MD Hemoglobin (Bld) [Mass/Vol] 13.2 g/dL Normal 13.0-17.0 [facility] Comment on above: Performed By: #### B MP, CBC #### [address] [address] Yard Switch Operator: Rodrick Jones MD MCH (RBC) [Entitic mass] 30.6 pg Normal 25.2-33.5 [facility] Comment on above: Performed By: #### B MP, CBC #### [address] [phone] Yard Switch Operator: Rodrick Jones MD MCHC (RBC) [Mass/Vol] 32.1 g/dL Normal 28.4-34.8 [facility] Comment on above: Performed By: #### B MP, CBC #### [address] [address] Yard Switch Operator: Rodrick Jones MD MCV (RBC) [Entitic vol] 95.1 fL Normal 82.6-102.9 [facility] Comment on above: Performed By: #### B MP, CBC #### [address] [address] Yard Switch Operator: Rodrick Jones MD NRBC Automated 0.0 per 100 WBC Normal 0.0 [facility] Comment on above: Performed By: #### B MP, CBC #### [address] [address] Yard Switch Operator: Rodrick Jones MD Platelet mean volume (Bld) [Entitic vol] 10.2 fL Normal 8.1-13.5 [facility] Comment on above: Performed By: #### B MP, CBC #### [address] [phone] Yard Switch Operator: Rodrick Jones MD Platelets (Bld) [#/Vol] 206 10*3/uL Normal 138-453 [facility] Comment on above: Performed By: #### B MP, CBC #### [facility] [address] [place], [place] [phone] Yard Switch Operator: Rodrick Jones MD RBC (Bld) [#/Vol] 4.32 10*6/uL Normal 4.21-5.77 [facility] Comment on above: Performed By: #### B MP, CBC #### [facility] [address] [place], [place] [phone] Yard Switch Operator: Rodrick Jones MD WBC (Bld) [#/Vol] 8.3 10*3/uL Normal 3.5-11.3 [facility] Comment on above: Performed By: #### B MP, CBC #### [facility] [place], [place] [phone] Yard Switch Operator: Rodrick Jones MD Hematocrit (Bld) [Volume fraction] 41.1 % 40.7 - 50.3 % [facility] Hemoglobin (Bld) [Mass/Vol] 13.2 g/dL 13.0 - 17.0 g/dL [facility] MCH (RBC) [Entitic mass] 30.6 pg 25.2 - 33.5 pg [facility] MCHC (RBC) [Mass/Vol] 32.1 g/dL 28.4 - 34.8 g/dL [facility] MCV (RBC) [Entitic vol] 95.1 fL 82.6 - 102.9 fL [facility] [employer] NRBC Automated 0.0 0.0 per 100 WBC [facility] Platelet distribution width (Bld) [Ratio] 14.2 % 11.8 - 14.4 % [facility] Platelet mean volume (Bld) [Entitic vol] 10.2 fL 8.1 - 13.5 fL [facility] Platelets (Bld) [#/Vol] 206 10*3/uL [facility] RBC (Bld) [#/Vol] 4.32 10*6/uL 4.21 - 5.7 7 m/uL [facility] WBC (Bld) [#/Vol] 8.3 10*3/uL [facility] Comp Metabolic Pr/rfx MGon 0 2- Albumin [Mass/Vol] 3.0 g/dL Low 3.5-5.2 [facility] Comment on above: Performed By: #### B MP, CBC #### [facility] [address] [place] [phone] Yard Switch Operator: Rodrick Jones MD Albumin/Glob Ratio 0.8 Low 1.0-2.5 [facility] Comment on above: Performed By: #### B MP, CBC #### [facility] [address] [place] [address] Yard Switch Operator: Rodrick Jones MD Alkaline Phos 97 U/L Normal 40-129 [facility] Comment on above: Performed By: #### B MP, CBC #### [facility] [address] [place] [phone] Yard Switch Operator: Rodrick Jones MD ALT [Catalytic activity/Vol] 19 U/L Normal 5-41 [facility] Comment on above: Performed By: #### B MP, CBC #### [facility] [address] [place] [address] Yard Switch Operator: Rodrick Jones MD Anion gap [Moles/Vol] 14 mmol/L Normal 9-17 [facility] Comment on above: Performed By: #### B MP, CBC #### [facility] [address] [place] [phone] Yard Switch Operator: Rodrick Jones MD AST [Catalytic activity/Vol] 24 U/L Normal <40 [facility] Comment on above: Performed By: #### B MP, CBC #### [facility] [employer] [address] [place] [address] Yard Switch Operator: Rodrick Jones MD Bilirubin [Mass/Vol] 0.3 mg/dL Normal 0.3-1.2 [facility] Comment on above: Performed By: #### B MP, CBC #### [facility] [address] [place] [address] Yard Switch Operator: Rodrick Jones MD Calcium [Mass/Vol] 8.6 mg/dL Normal 8.6-10.4 [facility] Comment on above: Performed By: #### B MP, CBC #### [facility] [address] [place] [address] Yard Switch Operator: Rodrick Jones MD Chloride [Moles/Vol] 109 mmol/L High 98-107 [facility] Comment on above: Performed By: #### B MP, CBC #### [facility] [address] [place] [address] Yard Switch Operator: Rodrick Jones MD CO2 [Moles/Vol] 20 mmol/L Normal 20-31 [facility] Comment on above: Performed By: #### B MP, CBC #### [facility] [address] [place] [address] Yard Switch Operator: Rodrick Jones MD Creatinine [Mass/Vol] 4.53 mg/dL High 0.70-1.20 [facility] Comment on above: Performed By: #### B MP, CBC #### [facility] [employer] [address] [place] [address] Yard Switch Operator: Rodrick Jones MD GFR/1.73 sq M.predicted among non-blacks MDRD (S/P/Bld) [Vol rate/Area] 14 mL/min/{1.73_m2} Low >60 [facility] Comment on above: Result Comment: These results [...] Performed By: #### B MP, CBC #### [facility] [address] [place] [address] Yard Switch Operator: Rodrick Jones MD Glucose [Mass/Vol] 189 mg/dL High 70-99 [facility] Comment on above: Performed By: #### B MP, CBC #### [facility] [address] [place] [address] Yard Switch Operator: Rodrick Jones MD Potassium [Moles/Vol] 4.3 mmol/L Normal 3.7-5.3 [facility] Comment on above: Performed By: #### B CECY, CBC #### [facility] [employer] [address] [place] [address] Yard Switch Operator: Rodrick Jones MD Protein [Mass/Vol] 6.6 g/dL Normal 6.4-8.3 [facility] Comment on above: Performed By: #### B MP, CBC #### [facility] [address] [place] [address] Yard Switch Operator: Rodrick Jones MD Sodium [Moles/Vol] 143 mmol/L Normal 135-144 [facility] Comment on above: Performed By: #### B MP, CBC #### [facility] [employer] [address] [place] [phone] Yard Switch Operator: Rodrick Jones MD Urea nitrogen [Mass/Vol] 71 mg/dL High 8-23 [facility] Comment on above: Performed By: #### B MP, CBC #### [facility] [address] [place] [address] Yard Switch Operator: Rodrick Jones MD Comprehensive Metabolic Pane l w/ Reflex to MGon 05-30-2022 Albumin [Mass/Vol] 3 g/dL Low 3.5 - 5.2 g/dL [facility] Albumin/Globulin [Mass ratio] 0.8 {ratio} Low 1.0 - 2.5 [facility] ALP [Catalytic activity/Vol] 97 U/L 40 - 129 U/L [facility] ALT [Catalytic activity/Vol] 19 U/L 5 - 41 U/L [facility] Anion gap [Moles/Vol] 14 mmol/L 9 - 17 mmol/L [facility] AST [Catalytic activity/Vol] 24 U/L NINF - 40 U/L [facility] Bilirubin [Mass/Vol] 0.3 mg/dL 0.3 - 1 .2 mg/dL [facility] Calcium [Mass/Vol] 8.6 mg/dL 8.6 - 10. 4 mg/dL [facility] Chloride [Moles/Vol] 109 mmol/L High 98 - 10 7 mmol/L [facility] CO2 [Moles/Vol] 20 mmol/L 20 - 31 mmol/L [facility] Creatinine [Mass/Vol] 4.53 mg/dL High 0.70 - 1.20 mg/dL [facility] GFR/1.73 sq M.predicted MDRD (S/P/Bld) [Vol rate/Area] 14 mL/min/{1.73_m2} Low - PINF [facility] Comment on above: These results are not [...] 189 mg/dL High 70 - 99 mg/dL [facility] Interpretation and review of laboratory results Abnormal [facility] Potassium [Moles/Vol] 4.3 mmol/L 3.7 - 5.3 mmol/L [facility] Protein [Mass/Vol] 6.6 g/dL 6.4 - 8.3 g/dL [facility] Sodium [Moles/Vol] 143 mmol/L 135 - 144 mmol/L [facility] Urea nitrogen [Mass/Vol] 71 mg/dL High 8 - 23 mg/dL [facility] Electrolyte Panelon 05-30-19 Anion gap [Moles/Vol] 13 mmol/L 9 - 17 mmol/L [facility] Chloride [Moles/Vol] 107 mmol/L 98 - 10 7 mmol/L [facility] CO2 [Moles/Vol] 21 mmol/L 20 - 31 mmol/L [facility] Potassium [Moles/Vol] 3.9 mmol/L 3.7 - 5.3 mmol/L [facility] Sodium [Moles/Vol] 141 mmol/L 135 - 144 mmol/L [facility] Anion gap [Moles/Vol] 16 mmol/L 9 - 17 mmol/L [facility] Chloride [Moles/Vol] 107 mmol/L 98 - 10 7 mmol/L [facility] CO2 [Moles/Vol] 20 mmol/L 20 - 31 mmol/L [facility] Interpretation and review of laboratory results Abnormal [facility] Potassium [Moles/Vol] 3.6 mmol/L Low 3.7 - 5.3 mmol/L [facility] Sodium [Moles/Vol] 143 mmol/L 135 - 144 mmol/L [facility] Electrolyteson 05-30-2022 Anion gap [Moles/Vol] 13 mmol/L Normal 9-17 [facility] Comment on above: Performed By: #### B MP, CBC #### [facility] [place] [phone] Yard Switch Operator: Rodrick Jones MD Chloride [Moles/Vol] 107 mmol/L Normal 98-107 [facility] Comment on above: Performed By: #### B MP, CBC #### [facility] [address] [place], [place] [phone] Yard Switch Operator: Rodrick Jones MD CO2 [Moles/Vol] 21 mmol/L Normal 20-31 [facility] Comment on above: Performed By: #### B MP, CBC #### [facility] [address] [place] [address] Yard Switch Operator: Rodrick Jones MD Potassium [Moles/Vol] 3.9 mmol/L Normal 3.7-5.3 [facility] Comment on above: Performed By: #### B MP, CBC #### [facility] [address] [place] [address] Yard Switch Operator: Rodrick Jones MD Sodium [Moles/Vol] 141 mmol/L Normal 135-144 [facility] Comment on above: Performed By: #### B MP, CBC #### [facility] [address] [place] [address] Yard Switch Operator: Rodrick Jones MD Anion gap [Moles/Vol] 16 mmol/L Normal 9-17 [facility] Comment on above: Performed By: #### B MP, CBC #### [facility] [address] [place] [address] Yard Switch Operator: Rodrick Jones MD Chloride [Moles/Vol] 107 mmol/L Normal 98-107 [facility] Comment on above: Performed By: #### B MP, CBC #### [facility] [address] [place] [address] Yard Switch Operator: Rodrick Jones MD CO2 [Moles/Vol] 20 mmol/L Normal 20-31 [facility] Comment on above: Performed By: #### B MP, CBC #### [facility] [address] [place] [address] Yard Switch Operator: Rodrick Jones MD Potassium [Moles/Vol] 3.6 mmol/L Low 3.7-5.3 [facility] Comment on above: Performed By: #### B MP, CBC #### [facility] [address] [place] [address] Yard Switch Operator: Rodrick Jones MD Sodium [Moles/Vol] 143 mmol/L Normal 135-144 [facility] Comment on above: Performed By: #### B MP, CBC #### [employer] [facility] [place], [place] [phone] Yard Switch Operator: Rodrick Jones MD Hemoglobin A1Con 1 Glucose [Mass/Vol] 160 mg/dL Normal [facility] Comment on above: Result Comment: The ADA and AACC recommend providing the estimated average glucose result to permit better patient understanding of their HBA1c result. Performed By: #### C RP, RENP, CBC, MG #### [employer] [address] [place] [address] [phone] Yard [employer] Operator: Rodrick Jones MD HbA1c (Bld) [Mass fraction] 7.2 % High 4.0-6.0 [facility] Comment on above: Performed By: #### C RPCRESCENCIO, CBC, MG #### [employer] [address] [place] [address] [phone] Yard Switch Operator: Rodrick Jones MD Average glucose Estimated from glycated hemoglobin (Bld) [Mass/Vol] 160 mg/dL [facility] [employer] Comment on above: The ADA and AACC rec ommend providing the estimated average glucose result to permit better patient understanding of their HBA1c result. HbA1c (Bld) [Mass fraction] 7.2 % High 4.0 - 6.0 % [facility] Interpretation and review of laboratory results Abnormal [facility] Magnesiumon 05-30-2022 Magnesium [Mass/Vol] 1.9 mg/dL Normal 1.6-2.6 [facility] Comment on above: Performed By: #### B MP, CBC #### [employer] [facility] [place], [place] [phone] Yard Switch Operator: Rodrick Jones MD Magnesium [Mass/Vol] 1.9 mg/dL 1.6 - 2 .6 mg/dL [facility] No Panel Informationon 05-30 [facility] P[facility] Glucose Fingerstickon Glucose [Mass/Vol] 197 mg/dL High 75 - 110 mg/dL [facility] Interpretation and review of laboratory results Abnormal [facility] Glucose [Mass/Vol] 189 mg/dL High 75 - 110 mg/dL [facility] Interpretation and review of laboratory results Abnormal [facility] Glucose [Mass/Vol] 146 mg/dL High 75 - 110 mg/dL [facility] Interpretation and review of laboratory results Abnormal [facility] Prot. Electroph, Blon 2022 Albumin [Mass/Vol] 3.4 g/dL Normal 3.2-5.2 [facility] Comment on above: Performed By: #### B MP, CBC #### [facility] [address] [place] [address] [phone] Yard Switch Operator: Rodrick Jones MD Albumin, % 51 % Normal 45-65 [facility] Comment on above: Performed By: #### B MP, CBC #### [facility] [address] [place] [address] Yard Switch Operator: Rodrick Jones MD [id number] 0.3 g/dL Normal 0.1-0.4 [facility] Comment on above: Performed By: #### B MP, CBC #### [facility] [address] [place] [address] [phone] Yard Switch Operator: Rodrick Jones MD [id number],% 4 % Normal 3-6 [facility] Comment on above: Performed By: #### B MP, CBC #### [facility] [address] [place] [address] Yard Switch Operator: Rodrick Jones MD [id number] 1.1 g/dL High 0.5-0.9 [facility] Comment on above: Performed By: #### B MP, CBC #### [facility] [place] [address] Yard Switch Operator: Rodrick Jones MD [id number],% 16 % High 6-13 [facility] Comment on above: Performed By: #### B MP, CBC #### [facility] [address] [place] [address] Yard Switch Operator: Rodrick Jones MD Beta-globulins 0.9 g/dL Normal 0.5-1.1 [facility] Comment on above: Performed By: #### B MP, CBC #### [facility] [address] [place] [address] Yard Switch Operator: Rodrick Jones MD Beta-globulins,% 14 % Normal 11-19 [facility] Comment on above: Performed By: #### B MP, CBC #### [facility] [address] [place] [address] Yard Switch Operator: Rodrick Jones MD Gamma-globulins 1.0 g/dL Normal 0.5-1.5 [facility] Comment on above: Performed By: #### B MP, CBC #### [address] [address] Yard Switch Operator: Rodrcik Jones MD Gamma-globulins,% 15 % Normal 9-20 [facility] Comment on above: Performed By: #### B MP, CBC #### [facility] [address] [place] [phone] Yard Switch Operator: Rodrick Jones MD Total Prot. Sum 6.7 g/dL Normal 6.3-8.2 [facility] Comment on above: Performed By: #### B MP, CBC #### [facility] [address] [place] [address] Yard Switch Operator: Rodirck Jones MD Total Prot. Sum,% 100 % Normal 98-102 [facility] Comment on above: Performed By: #### B MP, CBC #### [facility] [address] [place] [address] Yard Switch Operator: Rodrick Jones MD CULTURE URINEon 05-29-2022 CULTURE URINE Culture Observations : METHICILLIN RESISTANT STAPH EPIDERMIDIS ISOLATED. PLEASE FOLLOW APPROPRIATE ISOLATION PROCEDURES. Isolate 1 Staphylococcus epidermidis >100,000 cfu/mL of ORGANISM 1 Staphylococcus epidermidis ANTIBIOTIC M.I.C RX STATUS Beta-Lactamase Neg NEG F Cefoxitin Screen Neg NEG F Benzylpenicillin <=0.03 R F Oxacillin >=4 R F Ciprofloxacin <=0.5 S F Levofloxacin <=0.12 S F Inducible Clindamycin Resistance Neg NEG F Quinupristin/Dalfopri stin <=0.25 S F Linezolid 1 S F Vancomycin 1 S F Tetracycline <=1 S F Nitrofurantoin <=16 S F Rifampicin <=0.5 S F Trimethoprim/Sulfamet hoxazole <=10 S F Normal [facility] Comment on above: Performed By: #### C BC #### [facility] [address] [address] [address] Kalie Rodas Comp Metabolic Pr/rfx MGon 0 05-29-2022 GFR/1.73 sq M.predicted among non-blacks MDRD (S/P/Bld) [Vol rate/Area] 10 mL/min/{1.73_m2} Low >60 [facility] Comment on above: Result Comment: These results [...] Performed By: #### B MP, CBC #### [facility] [address] [place], [place] [phone] Yard Switch Operator: Rodrick Jones MD Albumin [Mass/Vol] 3.1 g/dL Low 3.5-5.2 [facility] Comment on above: Performed By: #### B MP, CBC #### [address] [address] Yard Switch Operator: Rodrick Jones MD Albumin/Glob Ratio 0.8 Low 1.0-2.5 [facility] Comment on above: Performed By: #### B MP, CBC #### [address] [address] Yard Switch Operator: Rodrick Jones MD Alkaline Phos 104 U/L Normal 40-129 [facility] Comment on above: Performed By: #### B MP, CBC #### [address] [address] Yard Switch Operator: Rodrick Jones MD ALT [Catalytic activity/Vol] 21 U/L Normal 5-41 [facility] Comment on above: Performed By: #### B MP, CBC #### [address] [address] Yard Switch Operator: Rodrick Jones MD Anion gap [Moles/Vol] 20 mmol/L High 9-17 [facility] Comment on above: Performed By: #### B MP, CBC #### [address] [address] Yard Switch Operator: Rodrick Jones MD AST [Catalytic activity/Vol] 32 U/L Normal <40 [facility] Comment on above: Performed By: #### B MP, CBC #### [facility] [address] [place] [address] Yard Switch Operator: Rodrick Jones MD Bilirubin [Mass/Vol] 0.4 mg/dL Normal 0.3-1.2 [facility] Comment on above: Performed By: #### B MP, CBC #### [address] [address] Yard Switch Operator: Rodrick Jones MD Calcium [Mass/Vol] 9.1 mg/dL Normal 8.6-10.4 [facility] Comment on above: Performed By: #### B MP, CBC #### [facility] [address] [place] [address] Yard Switch Operator: Rodrick Jones MD Chloride [Moles/Vol] 105 mmol/L Normal 98-107 [facility] Comment on above: Performed By: #### B MP, CBC #### [facility] [address] [place] [address] Yard Switch Operator: Rodrick Jones MD CO2 [Moles/Vol] 14 mmol/L Low 20-31 [facility] Comment on above: Performed By: #### B MP, CBC #### [facility] [address] [place] [address] Yard Switch Operator: Rodrick Jones MD Glucose [Mass/Vol] 187 mg/dL High 70-99 [facility] Comment on above: Performed By: #### B MP, CBC #### [facility] [address] [place] [address] Yard Switch Operator: Rodrick Jones MD Potassium [Moles/Vol] 4.6 mmol/L Normal 3.7-5.3 [facility] Comment on above: Performed By: #### B MP, CBC #### [facility] [address] [place] [address] Yard Switch Operator: Rodrick Jones MD Protein [Mass/Vol] 7.1 g/dL Normal 6.4-8.3 [facility] Comment on above: Performed By: #### B MP, CBC #### [facility] [address] [place] [address] Yard Switch Operator: Rodrick Jones MD Sodium [Moles/Vol] 139 mmol/L Normal 135-144 [facility] Comment on above: Performed By: #### B MP, CBC #### [facility] [address] [place], [place] [phone] Yard Switch Operator: Rodrick Jones MD Urea nitrogen [Mass/Vol] 78 mg/dL High 8-23 [facility] Comment on above: Performed By: #### B MP, CBC #### [facility] [address] [place], [place] [phone] Yard Switch Operator: Rodrick Jones MD Creatinine [Mass/Vol] 5.79 mg/dL Critically high 0.70-1.20 [facility] Comment on above: Previous Alert Value Reported Result Comment: Prev ious Alert Value Reported Performed By: #### B MP, CBC #### [facility] [address] [place], [place] [phone] Yard Switch Operator: Rodrick Jones MD Comprehensive Metabolic Pane l w/ Reflex to MGon 05-29-2022 Albumin [Mass/Vol] 3.1 g/dL Low 3.5 - 5.2 g/dL [facility] Albumin/Globulin [Mass ratio] 0.8 {ratio} Low 1.0 - 2.5 [facility] ALP [Catalytic activity/Vol] 104 U/L 40 - 129 U/L [facility] ALT [Catalytic activity/Vol] 21 U/L 5 - 41 U/L [facility] Anion gap [Moles/Vol] 20 mmol/L High 9 - 17 mmol/L [facility] AST [Catalytic activity/Vol] 32 U/L NINF - 40 U/L [facility] Bilirubin [Mass/Vol] 0.4 mg/dL 0.3 - 1 .2 mg/dL [facility] Calcium [Mass/Vol] 9.1 mg/dL 8.6 - 10. 4 mg/dL [facility] Chloride [Moles/Vol] 105 mmol/L 98 - 10 7 mmol/L [facility] CO2 [Moles/Vol] 14 mmol/L Low 20 - 31 mmol/L [facility] GFR/1.73 sq M.predicted MDRD (S/P/Bld) [Vol rate/Area] 10 mL/min/{1.73_m2} Low - PINF [facility] Comment on above: These results are not [...] 187 mg/dL High 70 - 99 mg/dL [facility] Interpretation and review of laboratory results Abnormal [facility] Potassium [Moles/Vol] 4.6 mmol/L 3.7 - 5.3 mmol/L [facility] Protein [Mass/Vol] 7.1 g/dL 6.4 - 8.3 g/dL [facility] Sodium [Moles/Vol] 139 mmol/L 135 - 144 mmol/L [facility] Urea nitrogen [Mass/Vol] 78 mg/dL High 8 - 23 mg/dL [facility] Cult,Urineon 05-29-2022 Cult,Urine Specimen Description .BLADDER URINE FROM CYSTOSCOPY Culture NO SIGNIFICANT GROWTH Report Status FINAL 05/29/2022 [facility] Comment on above: Performed By: #### B MP, CBC #### [employer] [address] [place], [place] [phone] Yard Switch Operator: Rodrick Jones MD Cult,Urine Specimen Description .CLEAN CATCH URINE Culture NO SIGNIFICANT GROWTH Report Status FINAL 05/29/2022 [facility] Comment on above: Performed By: #### B MP, CBC #### [employer] [address] [place], [place] [phone] Yard Switch Operator: Rodrick Jones MD Culture, Urineon 05-29-2022 Microorganism identified Cx Nom (Unsp spec) NO SIGNIFICANT GROWTH [facility] Specimen Description .BLADDER URINE FROM CYSTOSCOPY [facility] Microorganism identified Cx Nom (Unsp spec) NO SIGNIFICANT GROWTH [facility] Specimen Description .CLEAN CATCH URINE [facility] Electrolyte Panelon 05-29-19 Anion gap [Moles/Vol] 15 mmol/L 9 - 17 mmol/L [facility] Chloride [Moles/Vol] 106 mmol/L 98 - 10 7 mmol/L [facility] CO2 [Moles/Vol] 19 mmol/L Low 20 - 31 mmol/L [facility] Interpretation and review of laboratory results Abnormal [facility] Potassium [Moles/Vol] 4.0 mmol/L 3.7 - 5.3 mmol/L [facility] Sodium [Moles/Vol] 140 mmol/L 135 - 144 mmol/L [facility] Electrolyteson 05-29-2022 Anion gap [Moles/Vol] 15 mmol/L Normal 9-17 [facility] Comment on above: Performed By: #### C RP, RENP, CBC, MG #### [employer] [address] [place] [address] Yard Switch Operator: Rodrick Jones MD Chloride [Moles/Vol] 106 mmol/L Normal 98-107 [facility] Comment on above: Performed By: #### C RP, RENP, CBC, MG #### [facility] [address] [place] [address] Yard Switch Operator: Rodrick Jones MD CO2 [Moles/Vol] 19 mmol/L Low 20-31 [facility] Comment on above: Performed By: #### C RP, RENP, CBC, MG #### [facility] [address] [place] [address] Yard Switch Operator: Rodrick Jones MD Potassium [Moles/Vol] 4.0 mmol/L Normal 3.7-5.3 [facility] Comment on above: Performed By: #### C RP, RENP, CBC, MG #### [facility] [address] [place] [address] [phone] Yard Switch Operator: Rodrick Jones MD Sodium [Moles/Vol] 140 mmol/L Normal 135-144 [facility] Comment on above: Performed By: #### C RPDEBBIEP, CBC, MG #### [employer] [address] [place], [place] 1922708 Yard Switch Operator: Rodrick Jones MD [place] + Lambdaon 2022 [place] Lt Chains 7.89 mg/dL High 0.37-1.94 [facility] Comment on above: Performed By: #### B MP, CBC #### [employer] [facility] [place], [place] [phone] Yard Switch Operator: Rodrick Jones MD [place]/Lambda Rat 1.63 Normal 0.26-1.65 [facility] Comment on above: Performed By: #### B CECY, CBC #### [employer] [address] [place] [address] [phone] Yard Switch Operator: Rodrick Jones MD [place]/Lambda Quantitative Fr ee Light Chains, Serumon 05-29-2022 [place]/Lambda Ratio 1.63 0.26 - 1.65 [facility] Immunoglobulin light chains.kappa.free (S) [Mass/Vol] 7.89 mg/dL High 0.37 - 1.94 mg/dL [facility] Immunoglobulin light chains.lambda.free [Mass/Vol] 4.85 mg/dL High 0.57 - 2.63 mg/dL [facility] Interpretation and review of laboratory results Abnormal [facility] Magnesiumon 05-29-2022 Magnesium [Mass/Vol] 1.8 mg/dL Normal 1.6-2.6 [facility] Comment on above: Performed By: #### B MP, CBC #### [employer] [facility] [place], [place] [phone] Yard Switch Operator: Rodrick Jones MD Magnesium [Mass/Vol] 1.8 mg/dL 1.6 - 2 .6 mg/dL [facility] No Panel Informationon 05-29 [facility] POC Glucose Fingerstickon Glucose [Mass/Vol] 290 mg/dL High 75 - 110 mg/dL [facility] Interpretation and review of laboratory results Abnormal [facility] Glucose [Mass/Vol] 307 mg/dL High 75 - 110 mg/dL [facility] Interpretation and review of laboratory results Abnormal [facility] Glucose [Mass/Vol] 187 mg/dL High 75 - 110 mg/dL [facility] Interpretation and review of laboratory results Abnormal [facility] Glucose [Mass/Vol] 165 mg/dL High 75 - 110 mg/dL [facility] Interpretation and review of laboratory results Abnormal [facility] Phosphoruson 05-29-2022 Interpretation and review of laboratory results Abnormal [facility] Phosphate [Mass/Vol] 5.6 mg/dL High 2.5 - 4 .5 mg/dL [facility] Phosphorus, Inorg.on 023 Phosphorus, Inorg. 5.6 mg/dL High 2.5-4.5 [facility] Comment on above: Performed By: #### B MP, CBC #### [employer] [address] [place] [address] Yard Switch Operator: Rodrick Jones MD Prot. Electroph, Blon 2022 Protein [Mass/Vol] 6.7 g/dL Normal 6.4-8.3 [facility] Comment on above: Performed By: #### B MP, CBC #### [employer] [address] [place], [place] [phone] Yard Switch Operator: Rodrick Jones MD US RETROPERITONEAL COMPLETEo n [...] Franklin Barker MD 05/28/22 Final result Normal [facility] XR CHEST PORTABLEon 05-29-19 XR CHEST PORTABLE EXAMINATION: ONE XRAY VIEW OF THE CHEST 05/29/2022 6:03 am COMPARISON: None. HISTORY: ORDERING SYSTEM PROVIDED HISTORY: sob TECHNOLOGIST PROVIDED HISTORY: sob 62-year-old male with shortness of breath FINDINGS: Portable upright view of the chest stranding machine operator helper leads overlie the chest. Mild cardiomegaly. Mild [...] Jacob Garcia MD 05/29/22 Final result Normal [facility] 1. Mild cardiomegaly . Mild pulmonary vascular congestion. 2. Old granulomatous disease. 3. No confluent airspace consolidation. [facility] RIS CONSOLIDATED EXAMINATION: ONE XRAY VIEW OF THE CHEST 05/29/2022 6:03 am COMPARISON: None. HISTORY: ORDERING SYSTEM PROVIDED HISTORY: sob TECHNOLOGIST PROVIDED HISTORY: sob 62-year-old male with shortness of breath FINDINGS: Portable upright view of the chest stranding machine operator helper leads overlie the chest. Mild cardiomegaly. Mild [...] FINDINGS: Portable upright view of the chest stranding machine operator helper leads overlie the chest. Mild cardiomegaly. Mild pulmonary vascular congestion. No pneumothorax. Trachea midline. No confluent airspace consolidation or pleural effusions. Probable calcified granulomata projecting over the left lower lung zone. No acute osseous abnormality. IMPRESSION: 1. Mild cardiomegaly. Mild pulmonary vascular congestion. 2. Old granulomatous disease. 3. No confluent airspace consolidation. [employer] Phone: Radiology Study observation (narrative) [employer] Phone: XR CHEST PORTABLEOrdered By: Jacob Garcia on 05-29-2022 [facility] Phone: BLOOD CULTURE ID PANELon Bottle: Anaerobic Normal [facility] Comment on above: Performed By: #### C VDTB #### [facility] [address] [place] [address] Dr. Kalie Rodas Site: Right AC Normal [facility] Comment on above: Performed By: #### C VDTBH #### [facility] [address] [place] [address] Dr. Kalie Nayak/Casie Resist. Gene Not Applicable Normal NOT DETECTED [facility] Comment on above: Performed By: #### C VDTBH #### [facility] [address] [address] [address] Kalie Rodas Brain Natri. Peptideon 05-28 Natriuretic peptide B (Bld) [Mass/Vol] 2234 pg/mL High <300 [facility] Comment on above: Result Comment: An age-independent cutoff point of 300 pg/ml has a 98% negative predictive value excluding acute heart failure. Performed By: #### B MP, CBC #### [facility] [address] [place], [place] [phone] Yard Switch Operator: Rodrick Jones MD Brain Natriuretic Peptideon 05-28-2022 Natriuretic peptide B (Bld) [Mass/Vol] 2234 pg/mL High NINF - 300 pg/mL [facility] Comment on above: An age-independent cutoff point of 300 pg/ml has a 98% negative predictive value excluding acute heart failure. C3on 05-28-2022 C3 185 mg/dL High 90-180 [facility] Comment on above: Performed By: #### I FX, URI, C4, PE, FKLLC, C3, PTHNCA #### [facility] [address] [place] [address] [phone] Yard Switch Operator: Rodrick Jones MD C3 Complementon 05-28-2022 Complement C3 185 mg/dL High 90 - 180 mg/dL [facility] C4on 05-28-2022 C4 62 mg/dL High 10-40 [facility] Comment on above: Performed By: #### I FX, URI, C4, PE, FKLLC, C3, PTHNCA #### [facility] [employer] [address] [place] [address] [phone] Yard Switch Operator: Rodrick Jones MD C4 Complementon 05-28-2022 Complement C4 62 mg/dL High 10 - 40 mg/dL [facility] CBCon 05-28-2022 Erythrocyte distribution width (RBC) [Ratio] 14.4 % Normal 11.8-14.4 [facility] Comment on above: Performed By: #### C RP, RENP, CBC, MG #### [facility] [address] [place] [address] [phone] Yard Switch Operator: Rodrick Jones MD Hematocrit (Bld) [Volume fraction] 48.9 % Normal 40.7-50.3 [facility] Comment on above: Performed By: #### C RP, RENP, CBC, MG #### [employer] [address] [place] [address] [phone] Yard Switch Operator: Rodrick Jones MD Hemoglobin (Bld) [Mass/Vol] 14.6 g/dL Normal 13.0-17.0 [facility] Comment on above: Performed By: #### C RP, RENP, CBC, MG #### [address] [address] Yard Switch Operator: Rodrick Jones MD MCH (RBC) [Entitic mass] 30.9 pg Normal 25.2-33.5 [facility] Comment on above: Performed By: #### C RP, RENP, CBC, MG #### [address] [address] Yard Switch Operator: Rodrick Jones MD MCHC (RBC) [Mass/Vol] 29.9 g/dL Normal 28.4-34.8 [facility] Comment on above: Performed By: #### C RP, RENP, CBC, MG #### [address] [address] Yard Switch Operator: Rodrick Jones MD MCV (RBC) [Entitic vol] 103.4 fL High 82.6-102.9 [facility] Comment on above: Performed By: #### C RP, RENP, CBC, MG #### [facility] [address] [place] [address] Yard Switch Operator: Rodrick Jones MD NRBC Automated 0.0 per 100 WBC Normal 0.0 [facility] Comment on above: Performed By: #### C RP, RENP, CBC, MG #### [address] [address] Yard Switch Operator: Rodrick Jones MD Platelet mean volume (Bld) [Entitic vol] 9.8 fL Normal 8.1-13.5 [facility] Comment on above: Performed By: #### C RP, RENP, CBC, MG #### [facility] [employer] [address] [place] [address] Yard Switch Operator: Rodrick Jones MD Platelets (Bld) [#/Vol] 118 10*3/uL Low 138-453 [facility] Comment on above: Performed By: #### C RP, RENP, CBC, MG #### [employer] [address] [place], [place] [phone] Yard Switch Operator: Rodrick Jones MD RBC (Bld) [#/Vol] 4.73 10*6/uL Normal 4.21-5.77 [facility] Comment on above: Performed By: #### C RP, RENP, CBC, MG #### [facility] [address] [place], [place] [phone] Yard Switch Operator: Rodrick Jones MD WBC (Bld) [#/Vol] 7.2 10*3/uL Normal 3.5-11.3 [facility] Comment on above: Performed By: #### C RP, RENP, CBC, MG #### [employer] [address] [place], [place] [phone] Yard Switch Operator: Rodrick Jones MD Hematocrit (Bld) [Volume fraction] 48.9 % 40.7 - 50.3 % [facility] Hemoglobin (Bld) [Mass/Vol] 14.6 g/dL 13.0 - 17.0 g/dL [facility] Interpretation and review of laboratory results Abnormal [facility] MCH (RBC) [Entitic mass] 30.9 pg 25.2 - 33.5 pg [facility] MCHC (RBC) [Mass/Vol] 29.9 g/dL 28.4 - 34.8 g/dL [facility] MCV (RBC) [Entitic vol] 103.4 fL High 82.6 - 102.9 fL [facility] NRBC Automated 0.0 0.0 per 100 WBC [facility] Platelet distribution width (Bld) [Ratio] 14.4 % 11.8 - 14.4 % [facility] Platelet mean volume (Bld) [Entitic vol] 9.8 fL 8.1 - 13.5 fL [facility] Platelets (Bld) [#/Vol] 118 10*3/uL Low [facility] RBC (Bld) [#/Vol] 4.73 10*6/uL 4.21 - 5.7 7 m/uL [facility] WBC (Bld) [#/Vol] 7.2 10*3/uL [facility] CBC AUTO DIFFon 05-28-2022 BASO # 0.1 103/ul Normal 0.0-0.1 [facility] Comment on above: Performed By: #### M ALBCRL #### [facility] [address] [place] [address] Dr. Kalie Rodas Basophils/100 WBC (Bld) 0.7 % Normal 0.2-2.0 [facility] Comment on above: Performed By: #### M ALBCRL #### [facility] [address] [place] [address] Dr. Kalie Rodas EO # 0.1 103/ul Normal 0.0-0.7 [facility] Comment on above: Performed By: #### M ALBCRL #### [facility] [address] [place] [address] Dr. Kalie Rodas Eosinophils/100 WBC (Bld) 0.5 % Critically low 0.9-7.0 [facility] Comment on above: Performed By: #### M ALBCRL #### [facility] [address] [place] [address] Dr. Kalie Rodas Erythrocyte distribution width (RBC) [Ratio] 14.0 % Normal 11.0-15.0 [facility] Comment on above: Performed By: #### M ALBCRL #### [facility] [address] [place] [address] Dr. Kalie Rodas Hematocrit (Bld) [Volume fraction] 38.1 % Critically low 42.0-54.0 [facility] Comment on above: Performed By: #### M ALBCRL #### [facility] [address] [place] [address] Dr. Kalie Rodas Hemoglobin (Bld) [Mass/Vol] 12.9 g/dL Critically low 14.0-18.0 [facility] Comment on above: Performed By: #### M ALBCRL #### [facility] [address] [place] [address] Dr. Kalie Rodas IG # 0.06 10e3/ul Critically high 0.00-0.03 [facility] Comment on above: Performed By: #### M ALBCRL #### [facility] [address] [place] [address] Dr. Kalie Rodas IG % 0.6 % Critically high 0.0-0.5 [facility] Comment on above: Performed By: #### M ALBCRL #### [facility] [address] [address] [address] Kalie Rodas LYMPH # 1.5 103/ul Normal 1.2-3.8 [facility] Comment on above: Performed By: #### M ALBCRL #### [facility] [address] [place] [address] Dr. Kalie Rodas Lymphocytes/100 WBC (Bld) 14.4 % Critically low 20.5-60.0 [facility] Comment on above: Performed By: #### M ALBCRL #### [facility] [address] [place] [address] Dr. Kalie Rodas MANUAL DIFF REQ NO Normal [facility] Comment on above: Performed By: #### M ALBCRL #### [facility] [address] [place] [address] Dr. Kalie Rodas MCH (RBC) [Entitic mass] 30.4 pg Normal 25.9-34.0 [facility] Comment on above: Performed By: #### M ALBCRL #### [facility] [address] [place] [address] Dr. Kalie Rodas MCHC (RBC) [Mass/Vol] 33.9 g/dL Normal 29.9-35.2 [facility] Comment on above: Performed By: #### M ALBCRL #### [facility] [address] [place] [address] Dr. Kalie Rodas MCV (RBC) [Entitic vol] 89.9 fL Normal 80.0-94.0 [facility] Comment on above: Performed By: #### M ALBCRL #### [facility] [address] [place] [address] Dr. Kalie Rodas MONO # 1.5 103/ul Critically high 0.3-0.8 [facility] Comment on above: Performed By: #### M ALBCRL #### [facility] [address] [address] [address] Kalie Rodas Monocytes/100 WBC (Bld) 13.6 % Critically high 1.7-12.0 [facility] Comment on above: Performed By: #### M ALBCRL #### [facility] [address] [place] [address] Dr. Kalie Rodas NEUT # 7.5 103/ul Critically high 1.4-6.5 [facility] Comment on above: Performed By: #### M ALBCRL #### [facility] [address] [place] [address] Dr. Kalie Rodas Neutrophils/100 WBC (Bld) 70.2 % Normal 43.0-75.0 [facility] Comment on above: Performed By: #### M ALBCRL #### [facility] [address] [place] [address] Dr. Kalie Rodas Platelet mean volume (Bld) [Entitic vol] 9.8 fL Normal 9.5-13.5 [facility] Comment on above: Performed By: #### M ALBCRL #### [facility] [address] [place] [address] Dr. Kalie Rodas PLT 205 103/ul Normal 150-450 [facility] Comment on above: Performed By: #### M ALBCRL #### [facility] [address] [place] [address] Dr. Kalie Rodas RBC 4.24 106/ul Critically low 4.70-6.10 [facility] Comment on above: Performed By: #### M ALBCRL #### [facility] [address] [place] [address] Dr. Kalie Rodas WBC 10.6 103/ul Normal 4.0-11.0 [facility] Comment on above: Performed By: #### M ALBCRL #### [facility] [address] [place] [address] Dr. Kalie Rodas BASO # 0.1 103/ul Normal 0.0-0.1 [facility] Comment on above: Performed By: #### C VDTBH #### [facility] [address] [place] [address] Dr. Kalie Rodas Basophils/100 WBC (Bld) 0.5 % Normal 0.2-2.0 [facility] Comment on above: Performed By: #### C VDTBH #### [facility] [address] [place] [address] Dr. Kalie Rodas EO # 0.0 103/ul Normal 0.0-0.7 [facility] Comment on above: Performed By: #### C VDTBH #### [facility] [address] [place] [address] Dr. Kalie Rodas Eosinophils/100 WBC (Bld) 0.2 % Critically low 0.9-7.0 [facility] Comment on above: Performed By: #### C VDTBH #### [facility] [address] [place] [address] Dr. Kalie Rodas Erythrocyte distribution width (RBC) [Ratio] 14.0 % Normal 11.0-15.0 [facility] Comment on above: Performed By: #### C VDTBH #### [facility] [address] [place] [address] Dr. Kalie Rodas Hematocrit (Bld) [Volume fraction] 38.1 % Critically low 42.0-54.0 [facility] Comment on above: Performed By: #### C VDTBH #### [facility] [address] [place] [address] Dr. Kalie Rodas Hemoglobin (Bld) [Mass/Vol] 13.1 g/dL Critically low 14.0-18.0 [facility] Comment on above: Performed By: #### C VDTBH #### [facility] [address] [place] [address] Dr. Kalie Rodas IG # 0.04 10e3/ul Critically high 0.00-0.03 [facility] Comment on above: Performed By: #### C VDTBH #### [facility] [facility] [address] [place] [address] Dr. Kalie Rodas IG % 0.4 % Normal 0.0-0.5 [facility] Comment on above: Performed By: #### C VDTBH #### [facility] [address] [address] [address] Kalie Rodas LYMPH # 1.6 103/ul Normal 1.2-3.8 [facility] Comment on above: Performed By: #### C VDTBH #### [facility] [address] [place] [address] Dr. Kalie Rodas Lymphocytes/100 WBC (Bld) 14.5 % Critically low 20.5-60.0 [facility] Comment on above: Performed By: #### C VDTBH #### [facility] [address] [place] [address] Dr. Kalie Rodas MANUAL DIFF REQ NO Normal [facility] Comment on above: Performed By: #### C VDTBH #### [facility] [address] [place] [address] Dr. Kalie Rodas MCH (RBC) [Entitic mass] 30.8 pg Normal 25.9-34.0 [facility] Comment on above: Performed By: #### C VDTBH #### [facility] [address] [place] [address] Dr. Kalie Rodas MCHC (RBC) [Mass/Vol] 34.4 g/dL Normal 29.9-35.2 [facility] Comment on above: Performed By: #### C VDTBH #### [facility] [address] [place] [address] Dr. Kalie Rodas MCV (RBC) [Entitic vol] 89.4 fL Normal 80.0-94.0 [facility] Comment on above: Performed By: #### C VDTBH #### [facility] [address] [place] [address] Dr. Kalie Rodas MONO # 1.4 103/ul Critically high 0.3-0.8 [facility] Comment on above: Performed By: #### C VDTBH #### [facility] [address] [address] [address] Kalie Rodas Monocytes/100 WBC (Bld) 12.8 % Critically high 1.7-12.0 [facility] Comment on above: Performed By: #### C VDTBH #### [facility] [address] [address] [address] Kalie Rodas NEUT # 7.9 103/ul Critically high 1.4-6.5 [facility] Comment on above: Performed By: #### C VDTBH #### [facility] [address] [address] [address] Kalie Rodas Neutrophils/100 WBC (Bld) 71.6 % Normal 43.0-75.0 [facility] Comment on above: Performed By: #### C VDTBH #### [facility] [address] [place] [address] Dr. Kalie Rodas Platelet mean volume (Bld) [Entitic vol] 9.5 fL Normal 9.5-13.5 [facility] Comment on above: Performed By: #### C VDTBH #### [facility] [address] [place] [address] Dr. Kalie Rodas PLT 200 103/ul Normal 150-450 [facility] Comment on above: Performed By: #### C VDTBH #### [facility] [address] [place] [address] Dr. Kalie Rodas RBC 4.26 106/ul Critically low 4.70-6.10 [facility] Comment on above: Performed By: #### C VDTBH #### [facility] [address] [place] [address] Dr. Kalie Rodas WBC 11.1 103/ul Critically high 4.0-11.0 [facility] Comment on above: Performed By: #### C VDTBH #### [facility] [address] [place] [address] Dr. Kalie Rodas Comp Metabolic Pr/rfx MGon 0 05-28-2022 Albumin [Mass/Vol] 2.8 g/dL Low 3.5-5.2 [facility] Comment on above: Performed By: #### B MP, CBC #### [address] [address] Yard Switch Operator: Rodrick Jones MD Albumin/Glob Ratio 0.6 Low 1.0-2.5 [facility] Comment on above: Performed By: #### B MP, CBC #### [address] [address] Yard Switch Operator: Rodrick Jones MD Alkaline Phos 107 U/L Normal 40-129 [facility] Comment on above: Result Comment: SPEC IMEN SLIGHTLY HEMOLYZED, RESULTS MAY BE ADVERSELY AFFECTED. Performed By: #### B MP, CBC #### [address] [address] Yard Switch Operator: Rodrick Jones MD ALT [Catalytic activity/Vol] 23 U/L Normal 5-41 [facility] Comment on above: Result Comment: SPEC IMEN SLIGHTLY HEMOLYZED, RESULTS MAY BE ADVERSELY AFFECTED. Performed By: #### B MP, CBC #### [address] [address] Yard Switch Operator: Rodrick Jones MD Anion gap [Moles/Vol] 19 mmol/L High 9-17 [facility] Comment on above: Performed By: #### B MP, CBC #### [address] [address] Yard Switch Operator: Rodrick Jones MD AST [Catalytic activity/Vol] 44 U/L High <40 [facility] Comment on above: Result Comment: SPEC IMEN SLIGHTLY HEMOLYZED, RESULTS MAY BE ADVERSELY AFFECTED. Performed By: #### B MP, CBC #### [address] [address] Yard Switch Operator: Rodrick Jones MD Bilirubin [Mass/Vol] 0.5 mg/dL Normal 0.3-1.2 [facility] Comment on above: Performed By: #### B MP, CBC #### [facility] [address] [place] [address] Yard Switch Operator: Rodrick Jones MD Calcium [Mass/Vol] 9.0 mg/dL Normal 8.6-10.4 [facility] Comment on above: Performed By: #### B MP, CBC #### [facility] [address] [place] [phone] Yard Switch Operator: Rodrick Jones MD Chloride [Moles/Vol] 103 mmol/L Normal 98-107 [facility] Comment on above: Performed By: #### B MP, CBC #### [facility] [address] [place] [address] Yard Switch Operator: Rodrick Jones MD CO2 [Moles/Vol] 9 mmol/L Critically low 20-31 [facility] Comment on above: Performed By: #### B MP, CBC #### [facility] [address] [place] [address] Yard Switch Operator: Rodrick Jones MD Creatinine [Mass/Vol] 7.05 mg/dL Critically high 0.70-1.20 [facility] Comment on above: Performed By: #### B MP, CBC #### [address] [address] Yard Switch Operator: Rodrick Jones MD GFR/1.73 sq M.predicted among non-blacks MDRD (S/P/Bld) [Vol rate/Area] 8 mL/min/{1.73_m2} Low >60 [facility] Comment on above: Result Comment: These results [...] Performed By: #### B MP, CBC #### [facility] [address] [place] [address] Yard Switch Operator: Rodrick Jones MD Glucose [Mass/Vol] 153 mg/dL High 70-99 [facility] Comment on above: Performed By: #### B MP, CBC #### [facility] [address] [place] [address] Yard Switch Operator: Rodrick Jones MD Potassium [Moles/Vol] 5.6 mmol/L High 3.7-5.3 [facility] Comment on above: Result Comment: SPEC IMEN SLIGHTLY HEMOLYZED, RESULTS MAY BE ADVERSELY AFFECTED. Performed By: #### B MP, CBC #### [facility] [address] [place] [address] Yard Switch Operator: Rodrick Jones MD Protein [Mass/Vol] 7.2 g/dL Normal 6.4-8.3 [facility] Comment on above: Performed By: #### B MP, CBC #### [facility] [address] [place] [address] Yard Switch Operator: Rodrick Jones MD Sodium [Moles/Vol] 131 mmol/L Low 135-144 [facility] Comment on above: Performed By: #### B MP, CBC #### [facility] [address] [place] [address] Yard Switch Operator: Rodrick Jones MD Urea nitrogen [Mass/Vol] 85 mg/dL High 8-23 [facility] Comment on above: Performed By: #### B MP, CBC #### [facility] [address] [place] [phone] Yard Switch Operator: Rodrick Jones MD Comprehensive Metabolic Pane l w/ Reflex to MGon 05-28-2022 Albumin [Mass/Vol] 2.8 g/dL Low 3.5 - 5.2 g/dL [facility] Albumin/Globulin [Mass ratio] 0.6 {ratio} Low 1.0 - 2.5 [facility] [employer] ALP [Catalytic activity/Vol] 107 U/L 40 - 129 U/L [facility] [employer] Comment on above: SPECIMEN SLIGHTLY HE MOLYZED, RESULTS MAY BE ADVERSELY AFFECTED. ALT [Catalytic activity/Vol] 23 U/L 5 - 41 U/L [facility] Comment on above: SPECIMEN SLIGHTLY HE MOLYZED, RESULTS MAY BE ADVERSELY AFFECTED. Anion gap [Moles/Vol] 19 mmol/L High 9 - 17 mmol/L [facility] AST [Catalytic activity/Vol] 44 U/L High NINF - 40 U/L [facility] [employer] Comment on above: SPECIMEN SLIGHTLY HE MOLYZED, RESULTS MAY BE ADVERSELY AFFECTED. Bilirubin [Mass/Vol] 0.5 mg/dL 0.3 - 1 .2 mg/dL [facility] Calcium [Mass/Vol] 9.0 mg/dL 8.6 - 10. 4 mg/dL [facility] Chloride [Moles/Vol] 103 mmol/L 98 - 10 7 mmol/L [facility] CO2 [Moles/Vol] 9 mmol/L Critically low 20 - 31 mmol/L [facility] Creatinine [Mass/Vol] 7.05 mg/dL Critically high 0.7 0 - 1.20 mg/dL [facility] GFR/1.73 sq M.predicted MDRD (S/P/Bld) [Vol rate/Area] 8 mL/min/{1.73_m2} Low - PINF [facility] Comment on above: These results are not [...] 153 mg/dL High 70 - 99 mg/dL [facility] Potassium [Moles/Vol] 5.6 mmol/L High 3.7 - 5.3 mmol/L [facility] Comment on above: SPECIMEN SLIGHTLY HE MOLYZED, RESULTS MAY BE ADVERSELY AFFECTED. Protein [Mass/Vol] 7.2 g/dL 6.4 - 8.3 g/dL [facility] Sodium [Moles/Vol] 131 mmol/L Low 135 - 144 mmol/L [facility] Urea nitrogen [Mass/Vol] 85 mg/dL High 8 - 23 mg/dL [facility] Creatinine, urine, randomon 05-28-2022 Creatinine, Ur 82.7 mg/dL 39.0 - 259.0 mg/dL [facility] Creatinine,Random Uron 05-28 Creatinine [Mass/Vol] 82.7 mg/dL Normal 39.0-259.0 [facility] Comment on above: Performed By: #### C RP, RENP, CBC, MG #### [facility] [address] [place] [phone] Yard Switch Operator: Rodrick Jones MD FLUORO FOR SURGICAL PROCEDUR ESon 05-28-2022 FLUORO FOR SURGICAL PROCEDURES Radiology exam is complete. No Radiologist dictation. Please follow up with ordering provider. Final result Normal [facility] Radiology exam is complete. No Radiologist dictation. Please follow up with ordering provider. MHPN RIS CONSOLIDATED [employer] [place] + Lambdaon 2022 Free Lambda Lt Chains 4.85 mg/dL High 0.57-2.63 [facility] Comment on above: Performed By: #### B MP, CBC #### [employer] [address] [place], [place] [phone] Yard Switch Operator: Rodrick Jones MD K (Potassium)on 05-28-2022 Potassium [Moles/Vol] 5.4 mmol/L High 3.7-5.3 [facility] Comment on above: Performed By: #### C RP, RENP, CBC, MG #### [employer] [address] [place] [address] Yard Switch Operator: Rodrick Jones MD LACTATE/LACTIC ACIDon 2022 Lactate [Moles/Vol] 0.6 mmol/L Normal 0.4-1.9 [facility] Comment on above: Performed By: #### C MP, TSH #### [facility] [address] [place], [place] [address] Dr. Kalie Rodas Lactate [Moles/Vol] 0.6 mmol/L Normal 0.4-1.9 [facility] Comment on above: Performed By: #### C MP, TSH #### [facility] [address] [place], [place] [address] Dr. Kalie Rodas Magnesiumon 05-28-2022 Magnesium [Mass/Vol] 1.9 mg/dL Normal 1.6-2.6 [facility] Comment on above: Performed By: #### B MP, CBC #### [facility] [address] [place], [place] [phone] Yard Switch Operator: Rodrick Jones MD Magnesium [Mass/Vol] 1.9 mg/dL 1.6 - 2 .6 mg/dL [facility] No Panel Informationon 05-28 Interpretation and review of laboratory results Abnormal [facility] Interpretation and review of laboratory results Abnormal [facility] Osmolality, Urineon 05-28-19 23 Osmolality - Urine 317 mOsm/kg Normal 80-1300 [facility] Comment on above: Performed By: #### C RP, RENP, CBC, MG #### [facility] [address] [place] [address] Yard Switch Operator: Rodrick Jones MD Osmolality, urineon 05-28-19 23 Osmolality, Ur 317 [facility] P[facility] Glucose Fingerstickon Glucose [Mass/Vol] 187 mg/dL High 75 - 110 mg/dL [facility] Interpretation and review of laboratory results Abnormal [facility] Glucose [Mass/Vol] 160 mg/dL High 75 - 110 mg/dL [facility] Interpretation and review of laboratory results Abnormal [facility] Glucose [Mass/Vol] 126 mg/dL High 75 - 110 mg/dL [facility] Interpretation and review of laboratory results Abnormal [facility] POINT OF CARE GLUCOSEon 05-12 Glucose [Mass/Vol] 118 mg/dL Critically high 74-106 [facility] Comment on above: Performed By: #### C MP, TSH #### [facility] [address] [address] [address] Kalie Rodas PROF 14(COMP METB)on 023 Albumin [Mass/Vol] 2.6 g/dL Critically low 3.4-5.0 [facility] Comment on above: Performed By: #### C VDTBH #### [facility] [address] [place] [address] Dr. Kalie Rodas Albumin/Globulin [Mass ratio] 0.6 {ratio} Normal [facility] Comment on above: Performed By: #### C VDTBH #### [facility] [address] [place] [address] Dr. Kalie Rodas ALP [Catalytic activity/Vol] 106 U/L Normal 46-116 [facility] Comment on above: Performed By: #### C VDTBH #### [facility] [address] [place] [address] Dr. Kalie Rodas ALT [Catalytic activity/Vol] 29 U/L Normal 16-63 [facility] Comment on above: Performed By: #### C VDTBH #### [facility] [address] [address] [address] Kalie Rodas Anion gap [Moles/Vol] 21.6 mmol/L Normal [facility] Comment on above: Performed By: #### C VDTBH #### [facility] [address] [place] [address] Dr. Kalie Rodas AST [Catalytic activity/Vol] 45 U/L Critically high 15-37 [facility] Comment on above: Performed By: #### C VDTBH #### [facility] [address] [place] [address] Dr. Kalie Rodas Bilirubin [Mass/Vol] 0.4 mg/dL Normal 0.2-1.0 [facility] Comment on above: Performed By: #### C VDTBH #### [facility] [address] [place] [address] Dr. Kalie Rodas Calcium [Mass/Vol] 8.5 mg/dL Normal 8.5-10.1 [facility] Comment on above: Performed By: #### C VDTBH #### [facility] [address] [place] [address] Dr. Kalie Rodas Chloride [Moles/Vol] 101 mmol/L Normal 98-107 [facility] Comment on above: Performed By: #### C VDTBH #### [facility] [address] [place] [address] Dr. Kalie Rodas CO2 [Moles/Vol] 15.3 mmol/L Critically low 21.0-32.0 [facility] Comment on above: Performed By: #### C VDTBH #### [facility] [address] [place] [address] Dr. Kalie Rodas Creatinine [Mass/Vol] 8.78 mg/dL Critically high 0.70-1.30 [facility] Comment on above: Performed By: #### C VDTBH #### [facility] [address] [place] [address] Dr. Kalie Rodas EGFR-AF NEW ZEALANDER 8 mL/min/1.73m2 Critically low >=60 [facility] Comment on above: Performed By: #### C VDTBH #### [facility] [address] [place] [address] Dr. Kalie Rodas EGFR-NON AF NEW ZEALANDER 6 mL/min/1.73m2 Critically low >=60 [facility] Comment on above: Performed By: #### C VDTBH #### [facility] [address] [place] [address] Dr. Kalie Rodas Globulin (S) [Mass/Vol] 4.2 g/dL Normal [facility] Comment on above: Performed By: #### C VDTBH #### [facility] [address] [place] [address] Dr. Kalie Rodas Glucose [Mass/Vol] 112 mg/dL Critically high 74-106 [facility] Comment on above: Performed By: #### C VDTBH #### [facility] [address] [place] [address] Dr. Kalie Rodas Potassium [Moles/Vol] 4.9 mmol/L Normal 3.5-5.1 [facility] Comment on above: Performed By: #### C VDTBH #### [facility] [address] [place] [address] Dr. Kalie Rodas Protein [Mass/Vol] 6.8 g/dL Normal 6.4-8.2 [facility] Comment on above: Performed By: #### C VDTBH #### [facility] [address] [place] [address] Dr. Kalie Rodas Sodium [Moles/Vol] 133 mmol/L Critically low 136-[address] [facility] Comment on above: Performed By: #### C VDTBH #### [facility] [address] [place] [address] Dr. Kalie Rodas Urea nitrogen [Mass/Vol] 86.0 mg/dL Critically high 7.0-18.0 [facility] Comment on above: Performed By: #### C VDTBH #### [facility] [address] [place] [address] Dr. Kalie Rodas Urea nitrogen/Creatinine [Mass ratio] 9.8 mg/mg Normal [facility] Comment on above: Performed By: #### C VDTBH #### [facility] [address] [place] [address] Dr. Kalie Rodas Albumin [Mass/Vol] 2.7 g/dL Critically low 3.4-5.0 [facility] Comment on above: Performed By: #### C VDTBH #### [facility] [address] [place] [address] Dr. Kalie Rodas Albumin/Globulin [Mass ratio] 0.6 {ratio} Normal [facility] Comment on above: Performed By: #### C VDTBH #### [facility] [address] [place], [place] [phone] Dr. Kalie Rodas ALP [Catalytic activity/Vol] 100 U/L Normal 46-116 [facility] Comment on above: Performed By: #### C VDTBH #### [facility] [address] [place] [address] Dr. Kalie Rodas ALT [Catalytic activity/Vol] 30 U/L Normal 16-63 [facility] Comment on above: Performed By: #### C VDTBH #### [facility] [address] [place] [address] Dr. Kalie Rodas Anion gap [Moles/Vol] 21.1 mmol/L Normal [facility] Comment on above: Performed By: #### C VDTBH #### [facility] [address] [place] [address] Dr. Kalie Rodas AST [Catalytic activity/Vol] 46 U/L Critically high 15-37 [facility] Comment on above: Performed By: #### C VDTBH #### [facility] [address] [place] [address] Dr. Kalie Rodas Bilirubin [Mass/Vol] 0.4 mg/dL Normal 0.2-1.0 [facility] Comment on above: Performed By: #### C VDTBH #### [facility] [address] [place] [address] Dr. Kalie Rodas Calcium [Mass/Vol] 8.5 mg/dL Normal 8.5-10.1 [facility] Comment on above: Performed By: #### C VDTBH #### [facility] [address] [place] [address] Dr. Kalie Rodas Chloride [Moles/Vol] 103 mmol/L Normal 98-107 [facility] Comment on above: Performed By: #### C VDTBH #### [facility] [address] [place] [address] Dr. Kalie Rodas CO2 [Moles/Vol] 15.6 mmol/L Critically low 21.0-32.0 [facility] Comment on above: Performed By: #### C VDTBH #### [facility] [address] [place], [place] [phone] Dr. Kalie Rodas Creatinine [Mass/Vol] 8.52 mg/dL Critically high 0.70-1.30 [facility] Comment on above: Performed By: #### C VDTBH #### [facility] [address] [place] [address] Dr. Kalie Rodas EGFR-AF NEW ZEALANDER 8 mL/min/1.73m2 Critically low >=60 [facility] Comment on above: Performed By: #### C VDTBH #### [facility] [address] [place] [address] Dr. Kalie Rodas EGFR-NON AF NEW ZEALANDER 6 mL/min/1.73m2 Critically low >=60 [facility] Comment on above: Performed By: #### C VDTBH #### [facility] [address] [place] [address] Dr. Kalie Rodas Globulin (S) [Mass/Vol] 4.5 g/dL Normal [facility] Comment on above: Performed By: #### C VDTBH #### [facility] [address] [place] [address] Dr. Kalie Rodas Glucose [Mass/Vol] 98 mg/dL Normal 74-106 [facility] Comment on above: Performed By: #### C VDTBH #### [facility] [address] [place] [address] Dr. Kalie Rodas Potassium [Moles/Vol] 4.7 mmol/L Normal 3.5-5.1 [facility] Comment on above: Performed By: #### C VDTBH #### [facility] [address] [place] [address] Dr. Kalie Rodas Protein [Mass/Vol] 7.2 g/dL Normal 6.4-8.2 [facility] Comment on above: Performed By: #### C VDTBH #### [facility] [address] [place] [address] Dr. Kalie Rodas Sodium [Moles/Vol] 135 mmol/L Critically low 136-[address] [facility] Comment on above: Performed By: #### C VDTBH #### [facility] [address] [place], [place] [address] Dr. Kalie Rodas Urea nitrogen [Mass/Vol] 83.0 mg/dL Critically high 7.0-18.0 [facility] Comment on above: Performed By: #### C VDTBH #### [facility] [address] [place], [place] [address] Dr. Kalie Rodas Urea nitrogen/Creatinine [Mass ratio] 9.7 mg/mg Normal [facility] Comment on above: Performed By: #### C VDTB #### [facility] [address] [place], [place] [address] Dr. Kalie Rodas PTon 05-28-2022 INR Coag (PPP) [Relative time] 1.0 {INR} Normal [facility] Comment on above: Result Comment: Therapeutic Range: Moderate Anticoagulant Intensity: INR = 2.0-3.0 High Anticoagulant Intensity: INR = 2.5-3.5 Performed By: #### B CECY, CBC #### [facility] [address] [place] [phone] Yard Switch Operator: Rodrick Jones MD PT Coag (PPP) [Time] 11.1 s Normal 9.1-12.3 [facility] Comment on above: Performed By: #### B CECY, CBC #### [facility] [address] [place] [address] [phone] Yard Switch Operator: Rodrick Jones MD PTH, Intacton 05-28-2022 PTH, Intact 152.9 pg/mL High 14.0-72.0 [facility] Comment on above: Result Comment: SAMP LES FROM PATIENTS ROUTINELY RECEIVING HIGH DOSE BIOTIN THERAPY MAY SHOW FALSELY DEPRESSED RESULTS. ADDITIONAL INFORMATION MAY BE REQUIRED FOR DIAGNOSIS. Performed By: #### B MP, CBC #### [facility] [address] [place] [address] [phone] Yard Switch Operator: Rodrick Jones MD Interpretation and review of laboratory results Abnormal [facility] [facility] [employer] Parathyrin.intact [Mass/Vol] 152.9 pg/mL High 14.0 - 72.0 pg/mL [facility] Comment on above: SAMPLES FROM PATIENT S ROUTINELY RECEIVING HIGH DOSE BIOTIN THERAPY MAY SHOW FALSELY DEPRESSED RESULTS. ADDITIONAL INFORMATION MAY BE REQUIRED FOR DIAGNOSIS. [facility] Potassiumon 05-28-2022 Interpretation and review of laboratory results Abnormal [facility] Potassium [Moles/Vol] 5.4 mmol/L High 3.7 - 5.3 mmol/L [facility] Protein, urine, randomon Protein (U) [Mass/Vol] 67 mg/dL [facility] Comment on above: No normal range esta blished. Protein,Tot,[place] Uron 2022 Tot Prot. Conc. 67 mg/dL Normal [facility] Comment on above: Result Comment: No n ormal range established. Performed By: #### C RP, RENP, CBC, MG #### [employer] [address] [place] [address] Yard Switch Operator: Rodrick Jones MD Protime-INRon 05-28-2022 INR Coag (PPP) [Relative time] 1.0 {INR} [facility] Comment on above: Therapeutic Range: Moderate Anticoagulant Intensity: INR = 2.0-3.0 High Anticoagulant Intensity: INR = 2.5-3.5 PT Coag (PPP) [Time] 11.1 s [facility] Sodium, Random Uron 05-28-19 Sodium (U) [Moles/Vol] 61 mmol/L Normal [facility] Comment on above: Result Comment: No n ormal range established. Performed By: #### C RP, RENP, CBC, MG #### [employer] [address] [place] [address] Yard Switch Operator: Rodrick Jones MD Sodium, urine, randomon 05-12 Sodium (U) [Moles/Vol] 61 mmol/L [facility] Comment on above: No normal range esta blished. US RETROPERITONEAL COMPLETEo n 05-28-2022 No stone, mass or hydronephrosis within the kidneys. Kidneys have normal size. [facility] RIS CONSOLIDATED EXAMINATION: RETROPERITONEAL ULTRASOUND OF THE [...] evaluated due to presence of Carballo catheter RUST RIS CONSOLIDATED Franklin Barker MD - 05/28/2022 [...] within the kidneys. Kidneys have normal size. [employer] Phone: Radiology Study observation (narrative) [facility] [employer] Phone: US RETROPERITONEAL COMPLETEO rdered By: Franklin Barker on 05-28-2022 [facility] Phone: Uric Acidon 05-28-2022 Urate [Mass/Vol] 7.8 mg/dL High 3.4-7.0 [facility] Comment on above: Performed By: #### I FX, URI, C4, PE, FKLLC, C3, PTHNCA #### [facility] [address] [place] [address] Yard Switch Operator: Rodrick Jones MD Urate [Mass/Vol] 7.8 mg/dL High 3.4 - 7.0 mg/dL [facility] Urinalysis w/ Microon 2022 Bilirubin, SemiQt,Ur Negative Normal NEG [facility] Comment on above: Performed By: #### C RP, RENP, CBC, MG #### [address] [address] Yard Switch Operator: Rodrick Jones MD Blood, Urine LARGE Abnormal NEG [facility] Comment on above: Performed By: #### C RP, RENP, CBC, MG #### [address] [address] Yard Switch Operator: Rodrick Jones MD Casts 2 TO 5 HYALINE Normal 0-8 [facility] Comment on above: Result Comment: Refe rence range defined for non-centrifuged specimen. Performed By: #### C RP, RENP, CBC, MG #### [address] [address] Yard Switch Operator: Rodrick Jones MD Clarity (U) Clear Normal CLEAR [facility] Comment on above: Performed By: #### C RP, RENP, CBC, MG #### [address] [address] Yard Switch Operator: Rodrick Jones MD Color (U) Yellow Normal YEL [facility] Comment on above: Performed By: #### C RP, RENP, CBC, MG #### [address] [address] Yard Switch Operator: Rodrick Jones MD Epithelial cells LM Ql (Urine sed) None Normal 0-5 [facility] Comment on above: Performed By: #### C RP, RENP, CBC, MG #### [address] [address] Yard Switch Operator: Rodrick Jones MD Glucose Ql (U) Negative Normal NEG [facility] Comment on above: Performed By: #### C RP, RENP, CBC, MG #### [address] [address] Yard Switch Operator: Rodrick Jones MD Ketones Ql (U) Negative Normal NEG [facility] Comment on above: Performed By: #### C RP, RENP, CBC, MG #### [address] [address] Yard Switch Operator: Rodrick Jones MD Leukocyte esterase Test strip Ql (U) TRACE Abnormal NEG [facility] Comment on above: Performed By: #### C RP, RENP, CBC, MG #### [address] [address] Yard Switch Operator: Rodrick Jones MD Nitrite,Ur Negative Normal NEG [facility] Comment on above: Performed By: #### C RP, RENP, CBC, MG #### [address] [address] Yard Switch Operator: Rodrick Jones MD PH,Ur 5.5 Normal 5.0-8.0 [facility] Comment on above: Performed By: #### C RP, RENP, CBC, MG #### [address] [address] Yard Switch Operator: Rodrick Jones MD Protein Ql (U) 2+ Abnormal NEG [facility] Comment on above: Performed By: #### C RP, RENP, CBC, MG #### [facility] [employer] [address] [place] [address] Yard Switch Operator: Rodrick Jones MD Spec. [place],Ur 1.011 Normal 1.005-1.030 [facility] Comment on above: Performed By: #### C RP, RENP, CBC, MG #### [facility] [employer] [address] [place] [address] Yard Switch Operator: Rodrick Jones MD Urine RBC's TOO NUMEROUS TO COUNT Normal 0-4 Me [facility] Comment on above: Result Comment: Refe rence range defined for non-centrifuged specimen. Performed By: #### C RP, RENP, CBC, MG #### [facility] [address] [place] [address] Yard Switch Operator: Rodrick Jones MD Urine WBC's 10 TO 20 Normal 0-5 [facility] Comment on above: Performed By: #### C RP, RENP, CBC, MG #### [facility] [address] [place], [place] [id number] Yard Switch Operator: Rodrick Jones MD Urobilinogen,Ur Normal Normal NORM [facility] Comment on above: Performed By: #### C RP, RENP, CBC, MG #### [facility] [address] [place] [id number] Yard Switch Operator: Rodrick Jones MD Urinalysis with Microscopico n 05-28-2022 Bilirubin Urine Negative NEGATIVE [facility] [employer] Casts UA 2 TO 5 HYALINE Reference range defined for non-centrifuged specimen. [facility] [employer] Color, UA Yellow Yellow [facility] [employer] Epithelial Cells UA None [facility] [employer] Glucose Auto test strip (U) [Mass/Vol] Negative NEGATIVE [facility] [employer] Interpretation and review of laboratory results Abnormal [facility] [employer] Ketones (U) [Mass/Vol] Negative NEGATIVE [facility] [employer] Leukocyte esterase Auto test strip Ql (U) TRACE Abnormal NEGATIVE [facility] [employer] Nitrite Auto test strip Ql (U) Negative NEGATIVE [facility] [employer] Protein (U) [Mass/Vol] 5.5 mg/dL 5.0 - 8.0 [facility] [employer] Protein (U) [Mass/Vol] 2+ Abnormal NEGATIVE [facility] [employer] RBC clumps Auto (Urine sed) [#/Area] TOO NUMEROUS TO COUNT [facility] [employer] Comment on above: Reference range defi jay jay for non-centrifuged specimen. Specific [place], UA 1.011 1.005 - 1.030 B ON [facility] CAMPUSTransactis Turbidity UA Clear Clear [facility] Urine Hgb LARGE Abnormal NEGATIVE [facility] Urobilinogen, Urine Normal Normal [facility] WBC, UA 10 TO 20 [facility] XR CHEST 1 Von 05-28-2022 XR CHEST 1 V EXAMINATION: XR CHES T 1 V HISTORY: SHORTNESS OF BREATH COMPARISON: [...] JOSÉ SYLVESTER Date: 2022-05-28 12:48 Normal [facility] BLOOD CULTURE ID PANELon A. baumannii Not detected Normal NOT DETECTED [facility] Comment on above: Performed By: #### C VDTBH #### [facility] [address] [address] [address] Kalie Rodas Bacteriodes fragilis Not detected Normal NOT DETECTED [facility] Comment on above: Performed By: #### C VDTBH #### [facility] [address] [address] [address] Kalie CAMPBELLD CONTROLS PASSED Normal [facility] Comment on above: Performed By: #### C VDTBH #### [facility] [address] [address] [address] Kalie CAMPBELLDBTHD BLOOD CULTURE BOTTLE INFORMATION Normal [facility] Comment on above: Performed By: #### C VDTBH #### [facility] [address] [address] [address] Kalie Rodas BCIDHD1 ANTIMICROBIAL RESISTANCE GENES Normal [facility] Comment on above: Performed By: #### C VDTBH #### [facility] [address] [address] [address] Kalie CAMPBELLDHD2 SEE BELOW Normal [facility] Comment on above: Result Comment: Note : Antimicrobial resitance can occur via multiple mechanisms. A Not Detected result for the [employer] antomicrobial resistance gene assays does not indicate antimicrobial susceptibility. Subculturing is required for species identification and susceptibility testing of isolates. Performed By: #### C VDTBH #### [facility] [address] [place] [address] Dr. Kalie Rodas BCIDHD3 Positive Normal [facility] Comment on above: Performed By: #### C VDTBH #### [facility] [address] [place] [address] Dr. Kalie Rodas BCIDHD4 Negative Normal [facility] Comment on above: Performed By: #### C VDTBH #### [facility] [address] [place] [address] Dr. Kalie Rodas BCIDHD5 YEAST Normal [facility] Comment on above: Performed By: #### C VDTBH #### [facility] [address] [place] [address] Dr. Kalie Rodas Bottle Set: Set 1 Normal [facility] Comment on above: Performed By: #### C VDTBH #### [facility] [address] [place] [address] Dr. Kalie Rodas Bottle: Aerobic Normal [facility] Comment on above: Performed By: #### C VDTBH #### [facility] [address] [place] [address] Dr. Kalie Rodas C. neoformans/gattii Not detected Normal NOT DETECTED [facility] Comment on above: Performed By: #### C VDTBH #### [facility] [address] [place] [address] Dr. Kalie Rodas Nida albicans Not detected Normal NOT DETECTED [facility] Comment on above: Performed By: #### C VDTBH #### [facility] [address] [place] [address] Dr. Kalie Rodas Nida auris Not detected Normal NOT DETECTED [facility] Comment on above: Performed By: #### C VDTBH #### [facility] [address] [place] [address] Dr. Kalie Rodas Nida glabrata Not detected Normal NOT DETECTED [facility] Comment on above: Performed By: #### C VDTBH #### [facility] [address] [place] [address] Dr. Kalie Rodas Nida Krusei Not detected Normal NOT DETECTED [facility] Comment on above: Performed By: #### C VDTBH #### [facility] [address] [place] [address] Dr. Kalie Rodas Nida Parapsilosis Not detected Normal NOT DETECTED [facility] Comment on above: Performed By: #### C VDTBH #### [facility] [address] [place] [address] Dr. Kalie Rodas Nida Tropicalis Not detected Normal NOT DETECTED [facility] Comment on above: Performed By: #### C VDTBH #### [facility] [address] [place] [address] Dr. Kalie Rodas CTX-M Resistant Gene Not Applicable Normal NOT DETECTE [facility] Comment on above: Performed By: #### C VDTBH #### [facility] [address] [place] [address] Dr. Kalie Rodas E. Cloacae complex Not detected Normal NOT DETECTED [facility] Comment on above: Performed By: #### C VDTBH #### [facility] [address] [place] [address] Dr. Kalie Rodas E. faecalis Not detected Normal NOT DETECTED [facility] Comment on above: Performed By: #### C VDTBH #### [facility] [address] [place] [address] Dr. Kalie Rodas E. faecium Not detected Normal NOT DETECTED [facility] Comment on above: Performed By: #### C VDTBH #### [facility] [address] [place] [address] Dr. Kalie Rodas Enterobacteriaceae Not detected Normal NOT DETECTED [facility] Comment on above: Performed By: #### C VDTBH #### [facility] [address] [place] [address] Dr. Kalie Rodas Escherichia coli Not detected Normal NOT DETECTED [facility] Comment on above: Performed By: #### C VDTBH #### [facility] [address] [place] [address] Dr. Kalie Rodas H. influenzae Not detected Normal NOT DETECTED [facility] Comment on above: Performed By: #### C VDTBH #### [facility] [address] [place] [address] Dr. Kalie Rodas IMP Resistant Gene Not Applicable Normal NOT DETECTED [facility] Comment on above: Performed By: #### C VDTBH #### [facility] [address] [place] [address] Dr. Kalie Rodas K. oxytoca Not detected Normal NOT DETECTED [facility] Comment on above: Performed By: #### C VDTBH #### [facility] [address] [place] [address] Dr. Kalie Rodas K. pneumoniae Not detected Normal NOT DETECTED [facility] Comment on above: Performed By: #### C VDTBH #### [facility] [address] [place] [address] Dr. Kalie Rodas Klebsiella aerogenes Not detected Normal NOT DETECTED [facility] Comment on above: Performed By: #### C VDTBH #### [facility] [address] [place] [address] Dr. Kalie Rodas KPC Resistant Gene Not Applicable Normal NOT DETECTED [facility] Comment on above: Performed By: #### C VDTBH #### [facility] [address] [place] [address] Dr. Kalie Rodas List. monocytogenes Not detected Normal NOT DETECTED [facility] Comment on above: Performed By: #### C VDTBH #### [facility] [address] [place] [address] Dr. Kalie Rodas Mcr-1 Resistant Gene Not Applicable Normal NOT DETECTE D [facility] Comment on above: Performed By: #### C VDTBH #### [facility] [address] [place] [address] Dr. Kalie Rodas mecA/C Detected Abnormal NOT DETECTED [facility] Comment on above: Performed By: #### C VDTBH #### [facility] [address] [place] [address] Dr. Kalie Rodas mecA/C MREJ Not Applicable Normal NOT DETECTED [facility] Comment on above: Performed By: #### C VDTBH #### [facility] [address] [place] [address] Dr. Kalie Rodas N. meningitidis Not detected Normal NOT DETECTED [facility] Comment on above: Performed By: #### C VDTBH #### [facility] [address] [place] [address] Dr. Kalie Rodas NDM Resistant Gene Not Applicable Normal NOT DETECTED [facility] Comment on above: Performed By: #### C VDTBH #### [facility] [address] [place] [address] Dr. Kalie Rodas Oxa-48-like Not Applicable Normal NOT DETECTED [facility] Comment on above: Performed By: #### C VDTBH #### [facility] [address] [place] [address] Dr. Kalie Rodas Proteus Not detected Normal NOT DETECTED [facility] Comment on above: Performed By: #### C VDTBH #### [facility] [address] [place] [address] Dr. Kalie Rodas Pseud. aeruginosa Not detected Normal NOT DETECTED [facility] Comment on above: Performed By: #### C VDTBH #### [facility] [address] [place] [address] Dr. Kalie Rodas S. maltophilia Not detected Normal NOT DETECTED [facility] Comment on above: Performed By: #### C VDTBH #### [facility] [address] [place] [address] Dr. Kalie Rodas Salmonella Not detected Normal NOT DETECTED [facility] Comment on above: Performed By: #### C VDTBH #### [facility] [address] [place] [address] Dr. Kalie Rodas Seratia marcescens Not detected Normal NOT DETECTED [facility] Comment on above: Performed By: #### C VDTBH #### [facility] [address] [place] [address] Dr. Kalie Rodas Site: rt. hand Normal [facility] Comment on above: Performed By: #### C VDTBH #### [facility] [address] [place] [address] Dr. Kalie Rodas Staph. aureus Not detected Normal NOT DETECTED [facility] Comment on above: Performed By: #### C VDTBH #### [facility] [address] [place] [address] Dr. Kalie Rodas Stapsharla. epidermidis Detected Critically abnormal NOT DETECTED [facility] Comment on above: Performed By: #### C VDTBH #### [facility] [address] [place] [address] Dr. Kalie Rodas Stapsharla. lugdunensis Not detected Normal NOT DETECTED [facility] Comment on above: Performed By: #### C VDTBH #### [facility] [address] [place] [address] Dr. Kalie Rodas Staphylococcus Detected Critically abnormal NOT DETECTED [facility] Comment on above: Performed By: #### C VDTBH #### [facility] [address] [place] [address] Dr. Kalie Rodas Strep. agalactiae Not detected Normal NOT DETECTED [facility] Comment on above: Performed By: #### C VDTBH #### [facility] [address] [place] [address] Dr. Kalie Rodas Strep. pneumoniae Not detected Normal NOT DETECTED [facility] Comment on above: Performed By: #### C VDTBH #### [facility] [address] [place] [address] Dr. Kalie Rodas Strep. pyogenes Not detected Normal NOT DETECTED [facility] Comment on above: Performed By: #### C VDTBH #### [facility] [address] [place] [address] Dr. Kalie Rodas Streptococcus Not detected Normal NOT DETECTED [facility] Comment on above: Performed By: #### C VDTBH #### [facility] [address] [place] [address] Dr. Kalie Nayak/Casie Resist. Gene Not detected Normal NOT DETECTED [facility] Comment on above: Performed By: #### C VDTBH #### [facility] [address] [place] [address] Dr. Kalie Rodas VIM Resistant Gene Not Applicable Normal NOT DETECTED [facility] Comment on above: Performed By: #### C VDTBH #### [facility] [address] [place] [address] Dr. Kalie Rodas CBC AUTO DIFFon 05-27-2022 BASO # 0.0 103/ul Normal 0.0-0.1 [facility] Comment on above: Performed By: #### C VDTBH #### [facility] [address] [place] [address] Dr. Kalie Rodas Basophils/100 WBC (Bld) 0.4 % Normal 0.2-2.0 [facility] Comment on above: Performed By: #### C VDTBH #### [facility] [address] [place] [address] Dr. Kalie Rodas EO # 0.0 103/ul Normal 0.0-0.7 [facility] Comment on above: Performed By: #### C VDTBH #### [facility] [address] [place] [address] Dr. Kalie Rodas Eosinophils/100 WBC (Bld) 0.0 % Critically low 0.9-7.0 [facility] Comment on above: Performed By: #### C VDTBH #### [facility] [address] [place] [address] Dr. Kalie Rodas Erythrocyte distribution width (RBC) [Ratio] 13.9 % Normal 11.0-15.0 [facility] Comment on above: Performed By: #### C VDTBH #### [facility] [address] [place] [address] Dr. Kalie Rodas Hematocrit (Bld) [Volume fraction] 37.9 % Critically low 42.0-54.0 [facility] Comment on above: Performed By: #### C VDTBH #### [facility] [address] [address] [address] Kalie Rodas Hemoglobin (Bld) [Mass/Vol] 12.8 g/dL Critically low 14.0-18.0 [facility] Comment on above: Performed By: #### C VDTBH #### [facility] [address] [place] [address] Dr. Kalie Rodas IG # 0.05 10e3/ul Critically high 0.00-0.03 [facility] Comment on above: Performed By: #### C VDTBH #### [facility] [address] [place] [address] Dr. Kalie Rodas IG % 0.5 % Normal 0.0-0.5 [facility] Comment on above: Performed By: #### C VDTBH #### [facility] [address] [place] [address] Dr. Kalie Rodas LYMPH # 1.1 103/ul Critically low 1.2-3.8 [facility] Comment on above: Performed By: #### C VDTBH #### [facility] [address] [place] [address] Dr. Kalie Rodas Lymphocytes/100 WBC (Bld) 9.6 % Critically low 20.5-60.0 [facility] Comment on above: Performed By: #### C VDTBH #### [facility] [address] [place] [address] Dr. Kalie Rodas MANUAL DIFF REQ NO Normal [facility] Comment on above: Performed By: #### C VDTBH #### [facility] [address] [place] [address] Dr. Kalie Rodas MCH (RBC) [Entitic mass] 30.3 pg Normal 25.9-34.0 [facility] Comment on above: Performed By: #### C VDTBH #### [facility] [address] [place] [address] Dr. Kalie Rodas MCHC (RBC) [Mass/Vol] 33.8 g/dL Normal 29.9-35.2 [facility] Comment on above: Performed By: #### C VDTBH #### [facility] [address] [place] [address] Dr. Kalie Rodas MCV (RBC) [Entitic vol] 89.8 fL Normal 80.0-94.0 [facility] [facility] Comment on above: Performed By: #### C VDTBH #### [facility] [address] [place] [address] Dr. Kalie Rodas MONO # 1.1 103/ul Critically high 0.3-0.8 [facility] Comment on above: Performed By: #### C VDTBH #### [facility] [address] [place] [address] Dr. Kalie Rodas Monocytes/100 WBC (Bld) 10.1 % Normal 1.7-12.0 [facility] Comment on above: Performed By: #### C VDTBH #### [facility] [address] [place] [address] Dr. Kalie Rodas NEUT # 8.8 103/ul Critically high 1.4-6.5 [facility] Comment on above: Performed By: #### C VDTB #### [facility] [address] [place] [address] Dr. Kalie Rodas Neutrophils/100 WBC (Bld) 79.4 % Critically high 43.0-75.0 [facility] Comment on above: Performed By: #### C VDTBH #### [facility] [address] [place] [address] Dr. Kalie Rodas Platelet mean volume (Bld) [Entitic vol] 10.0 fL Normal 9.5-13.5 [facility] Comment on above: Performed By: #### C VDTBH #### [facility] [address] [place] [address] Dr. Kalie Rodas PLT 187 103/ul Normal 150-450 [facility] Comment on above: Performed By: #### C VDTBH #### [facility] [address] [place] [address] Dr. Kalie Rodas RBC 4.22 106/ul Critically low 4.70-6.10 [facility] Comment on above: Performed By: #### C VDTBH #### [facility] [address] [place] [address] Dr. Kalie Rodas WBC 11.0 103/ul Normal 4.0-11.0 [facility] Comment on above: Performed By: #### C VDTBH #### [facility] [address] [place] [address] Dr. Kalie Rodas CBC W MANUAL DIFFon 05-27-19 23 ATYPICAL LYMPH # Normal [facility] Comment on above: Performed By: #### C VDTBH #### [facility] [address] [place] [address] Dr. Kalie Rodas ATYPICAL LYMPH % Normal [facility] Comment on above: Performed By: #### C VDTBH #### [facility] [address] [place] [address] Dr. Kalie Rodas BAND # Normal 0.0-0.3 [facility] Comment on above: Performed By: #### C VDTBH #### [facility] [address] [place] [address] Dr. Kalie Rodas BAND % Normal 0-5 [facility] Comment on above: Performed By: #### C VDTBH #### [facility] [address] [place] [address] Dr. Kalie Rodas BASOM # 0.00 103/ul Normal 0.00-0.10 [facility] Comment on above: Performed By: #### C VDTBH #### [facility] [address] [place] [address] Dr. Kalie Rodas BASOM % 0.0 % Critically low 0.2-2.0 [facility] Comment on above: Performed By: #### C VDTBH #### [facility] [address] [place] [address] Dr. Kalie Rodas BLAST # Normal [facility] Comment on above: Performed By: #### C VDTBH #### [facility] [address] [place] [address] Dr. Kalie Rodas BLAST % Normal [facility] Comment on above: Performed By: #### C VDTBH #### [facility] [address] [address] [address] Kalie Rodas CORRECTED WBC Normal 4.0-11.0 [facility] Comment on above: Performed By: #### C VDTBH #### [facility] [address] [address] [address] Kalie Rodas EOS # 0.00 103/ul Normal 0.00-0.70 [facility] Comment on above: Performed By: #### C VDTBH #### [facility] [address] [address] [address] Kalie Rodas EOS% 0.0 % Critically low 0.9-7.0 [facility] Comment on above: Performed By: #### C VDTBH #### [facility] [address] [place] [address] Dr. Kalie Rodas HCT 40.1 % Critically low 42.0-54.0 [facility] Comment on above: Performed By: #### C VDTBH #### [facility] [address] [place] [address] Dr. Kalie Rodas HGB 13.9 g/dl Critically low 14.0-18.0 [facility] Comment on above: Performed By: #### C VDTBH #### [facility] [address] [place] [address] Dr. Kalie Rodas LYMPHM # 0.75 103/ul Critically low 1.20-3.80 [facility] Comment on above: Performed By: #### C VDTBH #### [facility] [address] [place] [address] Dr. Kalie Rodas LYMPHM% 5.0 % Critically low 20.5-60.0 [facility] Comment on above: Performed By: #### C VDTBH #### [facility] [address] [place] [address] Dr. Kalie Rodas MCH 30.8 pg Normal 25.9-34.0 [facility] Comment on above: Performed By: #### C VDTBH #### [facility] [address] [place] [address] Dr. Kalie Rodas MCHC 34.7 g/dl Normal 29.9-35.2 [facility] Comment on above: Performed By: #### C VDTBH #### [facility] [address] [place] [address] Dr. Kalie Rodas MCV 88.9 fL Normal 80.0-94.0 [facility] Comment on above: Performed By: #### C VDTBH #### [facility] [address] [place] [address] Dr. Kalie Rodas METAMYELOCYTE # Normal [facility] Comment on above: Performed By: #### C VDTBH #### [facility] [address] [place] [address] Dr. Kalie Rodas METAMYELOCYTE % Normal [facility] Comment on above: Performed By: #### C VDTBH #### [facility] [address] [place] [address] Dr. Kalie Rodas MONOM# 1.80 103/ul Critically high 0.30-0.80 [facility] Comment on above: Performed By: #### C VDTBH #### [facility] [address] [place] [address] Dr. Kalie Rodas MONOM% 12.0 % Normal 1.7-12.0 [facility] Comment on above: Performed By: #### C VDTBH #### [facility] [address] [place] [address] Dr. Kalie Rodas MPV 9.6 fL Normal 9.5-13.5 [facility] Comment on above: Performed By: #### C VDTBH #### [facility] [address] [place] [address] Dr. Kalie Rodas MYELOCYTE # Normal [facility] Comment on above: Performed By: #### C VDTBH #### [facility] [address] [place] [address] Dr. Kalie Rodas MYELOCYTE % Normal [facility] Comment on above: Performed By: #### C VDTBH #### [facility] [address] [place] [address] Dr. Kalie Rodas NRBC Normal [facility] Comment on above: Performed By: #### C VDTBH #### [facility] [address] [address] [address] Kalie Rodas PLT 236 103/ul Normal 150-450 [facility] Comment on above: Performed By: #### C VDTBH #### [facility] [address] [address] [address] Kalie Rodas RBC 4.51 106/ul Critically low 4.70-6.10 [facility] Comment on above: Performed By: #### C VDTBH #### [facility] [address] [address] [address] Kalie Rodas RDW 13.7 % Normal 11.0-15.0 [facility] Comment on above: Performed By: #### C VDTBH #### [facility] [address] [address] [address] Kalie Rodas SEG # 12.45 103/ul Critically high 1.40-6.50 [facility] Comment on above: Performed By: #### C VDTBH #### [facility] [address] [address] [address] Kalie Rodas SEG % 83.0 % Critically high 43.0-75.0 [facility] Comment on above: Performed By: #### C VDTBH #### [facility] [address] [address] [address] Kalie Rodas WBC 15.0 103/ul Critically high 4.0-11.0 [facility] Comment on above: Performed By: #### C VDTBH #### [facility] [address] [address] [address] ABD/PELVIS WO CONon [...] nonobstructive. The right kidney is severely atrophic. Gastrointestinal/Sada toneum: No acute abnormality. The appendix is unremarkable. [...] KASSIE TO Date: 2022-05-27 13:01 Normal [facility] CULTURE BLOODon 05-27-2022 Microscopic examination of blood, culture Culture Observations: Aerobic & Anaerobic bottles positive; BCID- Staphylococcus Epidermidis Culture Observations: Please refer to accession #[id number] for susceptibilities. Isolate 1 Staphylococcus epidermidis Growth of Isolate 2 Staphylococcus hominis Growth of Normal [facility] Comment on above: Performed By: #### C BC #### [facility] [address] [place] [address] Dr. Kalie Rodas Covid-19 PCR ([facility])on 05-12 SARS-CoV-2 (COVID-19) RNA BENTLEY+probe Ql (Unsp spec) Not detected Normal NOT DETECTED [facility] Comment on above: Result Comment: When diagnostic [...] for this test is supported by the [employer] and Human Service's declaration that [...] Performed By: #### C MP, TSH #### [facility] [address] [place] [address] Dr. Kalie Rodas ER URINE PROFILEon 3 Bilirubin Ql (U) Negative Normal NEGATIVE [facility] Comment on above: Performed By: #### M ALBCRL #### [facility] [address] [place] [address] Dr. Kalie Rodas Clarity (U) CLEAR Normal CLEAR [facility] Comment on above: Performed By: #### M ALBCRL #### [facility] [address] [place] [address] Dr. Kalie Rodas Color (U) LT. YELLOW Normal YELLOW [facility] Comment on above: Performed By: #### M ALBCRL #### [facility] [address] [place] [address] Dr. Kalie Rodas ERUAHD A micrscopic examination will be performed if indicated. Normal [facility] Comment on above: Performed By: #### M ALBCRL #### [facility] [address] [place] [address] Dr. Kalie Rodas Glucose Ql (U) Negative Normal NEGATIVE [facility] Comment on above: Performed By: #### M ALBCRL #### [facility] [address] [place] [address] Dr. Kalie Rodas Hemoglobin Ql (U) LARGE Abnormal NEGATIVE [facility] Comment on above: Performed By: #### M ALBCRL #### [facility] [address] [place] [address] Dr. Kalie Rodas Ketones Ql (U) Negative Normal NEGATIVE [facility] Comment on above: Performed By: #### M ALBCRL #### [facility] [address] [place] [address] Dr. Kalie Rodas LEUKOCYTES MODERATE Abnormal NEGATIVE [facility] Comment on above: Performed By: #### M ALBCRL #### [facility] [address] [place] [address] Dr. Kalie Rodas Nitrite Ql (U) Negative Normal NEGATIVE [facility] Comment on above: Performed By: #### M ALBCRL #### [facility] [address] [place] [address] Dr. Kalie Rodas pH (U) 6.0 [pH] Normal 5-9 [facility] Comment on above: Performed By: #### M ALBCRL #### [facility] [address] [place] [address] Dr. Kalie Rodas Protein (U) [Mass/Vol] 100 mg/dL Abnormal NEGAT HARISH/ TRACE [facility] Comment on above: Performed By: #### M ALBCRL #### [facility] [address] [place] [address] Dr. Kalie Rodas SPEC GRAVITY 1.015 Normal 1.005-<=1.025 [facility] Comment on above: Performed By: #### M ALBCRL #### [facility] [address] [place] [address] Dr. Kalie Rodas UR MICRO IND INDICATED Normal [facility] Comment on above: Performed By: #### M ALBCRL #### [facility] [address] [place] [address] Dr. Kalie Rodas Urobilinogen Qn (U) 0.2 {Naresh'U}/dL Normal 0.2 - 1. 0 [facility] Comment on above: Performed By: #### M ALBCRL #### [facility] [address] [place] [address] Dr. Kalie Rodas POINT OF CARE GLUCOSEon 05-12 Glucose [Mass/Vol] 109 mg/dL Critically high 74-106 [facility] Comment on above: Performed By: #### M ALBCRL #### [facility] [address] [place] [address] Dr. Kalie Rodas Glucose [Mass/Vol] 65 mg/dL Critically low 74-[address] [facility] Comment on above: Performed By: #### P OCGLUC #### [facility] [address] [place] [address] Dr. Kalie Rodas Performed By: #### C VDTBH #### [facility] [address] [place] [address] Dr. Kalie Rodas Glucose [Mass/Vol] 117 mg/dL Critically high 74-106 [facility] Comment on above: Performed By: #### M ALBCRL #### [facility] [address] [place] [address] Dr. Kalie Rodas Glucose [Mass/Vol] 62 mg/dL Critically low 74-[address] [facility] Comment on above: Performed By: #### C BC #### [facility] [address] [place] [address] Dr. Kalie Rodas PROF 14(COMP METB)on 023 Albumin [Mass/Vol] 3.1 g/dL Critically low 3.4-5.[address] [facility] Comment on above: Performed By: #### C VDTBH #### [facility] [address] [place] [address] Dr. Kalie Rodas Albumin/Globulin [Mass ratio] 0.6 {ratio} Normal [facility] Comment on above: Performed By: #### C VDTBH #### [facility] [address] [place] [address] Dr. Kalie Rodas ALP [Catalytic activity/Vol] 112 U/L Normal 46-116 [facility] Comment on above: Performed By: #### C VDTBH #### [facility] [address] [place] [address] Dr. Kalie Rodas ALT [Catalytic activity/Vol] 28 U/L Normal 16-63 [facility] Comment on above: Performed By: #### C VDTBH #### [facility] [address] [place] [address] Dr. Kalie Rodas Anion gap [Moles/Vol] 23.2 mmol/L Normal [facility] Comment on above: Performed By: #### C VDTBH #### [facility] [address] [place] [address] Dr. Kalie Rodas AST [Catalytic activity/Vol] 37 U/L Normal 15-37 [facility] Comment on above: Performed By: #### C VDTBH #### [facility] [address] [place] [address] Dr. Kalie Rodas Bilirubin [Mass/Vol] 0.4 mg/dL Normal 0.2-1.0 [facility] Comment on above: Performed By: #### C VDTBH #### [facility] [address] [place] [address] Dr. Kalie Rodas Calcium [Mass/Vol] 9.2 mg/dL Normal 8.5-10.1 [facility] Comment on above: Performed By: #### C VDTBH #### [facility] [address] [place] [address] Dr. Kalie Rodas Chloride [Moles/Vol] 100 mmol/L Normal 98-107 [facility] Comment on above: Performed By: #### C VDTBH #### [facility] [address] [place] [address] Dr. Kalie Rodas CO2 [Moles/Vol] 16.1 mmol/L Critically low 21.0-32.0 [facility] Comment on above: Performed By: #### C VDTBH #### [facility] [address] [place] [address] Dr. Kalie Rodas Creatinine [Mass/Vol] 8.75 mg/dL Critically high 0.70-1.30 [facility] Comment on above: Performed By: #### C VDTBH #### [facility] [address] [place] [address] Dr. Kalie Rodas EGFR-NON AF NEW ZEALANDER 6 mL/min/1.73m2 Critically low >=60 [facility] Comment on above: Performed By: #### C VDTBH #### [facility] [address] [place] [address] Dr. Kalie Rodas Globulin (S) [Mass/Vol] 5.1 g/dL Normal [facility] Comment on above: Performed By: #### C VDTBH #### [facility] [address] [place] [address] Dr. Kalie Rodas Potassium [Moles/Vol] 4.3 mmol/L Normal 3.5-5.1 [facility] Comment on above: Performed By: #### C VDTBH #### [facility] [address] [place] [address] Dr. Kalie Rodas Protein [Mass/Vol] 8.2 g/dL Normal 6.4-8.2 [facility] Comment on above: Performed By: #### C VDTBH #### [facility] [address] [place] [address] Dr. Kalie Rodas Sodium [Moles/Vol] 135 mmol/L Critically low 136-145 [facility] Comment on above: Performed By: #### C VDTBH #### [facility] [address] [place] [address] Dr. Kalie Rodas Urea nitrogen [Mass/Vol] 86.0 mg/dL Critically high 7.0-18.0 [facility] Comment on above: Performed By: #### C VDTBH #### [facility] [address] [place] [address] Dr. Kalie Rodas Urea nitrogen/Creatinine [Mass ratio] 9.8 mg/mg Normal [facility] Comment on above: Performed By: #### C VDTBH #### [facility] [address] [place] [address] Dr. Kalie Rodas PROF CHEM 8 (BAS METB)on Anion gap [Moles/Vol] 19.3 mmol/L Normal [facility] Comment on above: Performed By: #### M ALBCRL #### [facility] [address] [place] [address] Dr. Kalie Rodas Calcium [Mass/Vol] 8.6 mg/dL Normal 8.5-10.1 [facility] Comment on above: Performed By: #### M ALBCRL #### [facility] [address] [place] [address] Dr. Kalie Rodas Chloride [Moles/Vol] 101 mmol/L Normal 98-107 [facility] Comment on above: Performed By: #### M ALBCRL #### [facility] [address] [place] [address] Dr. Kalie Rodas CO2 [Moles/Vol] 17.1 mmol/L Critically low 21.0-32.0 [facility] Comment on above: Performed By: #### M ALBCRL #### [facility] [address] [place] [address] Dr. Kalie Rodas Creatinine [Mass/Vol] 8.07 mg/dL Critically high 0.70-1.30 [facility] Comment on above: Performed By: #### M ALBCRL #### [facility] [address] [place] [address] Dr. Kalie Rodas EGFR-AF NEW ZEALANDER 8 mL/min/1.73m2 Critically low >=60 [facility] Comment on above: Performed By: #### M ALBCRL #### [facility] [address] [place] [address] Dr. Kalie Rodas Performed By: #### C VDTBH #### [facility] [address] [place] [address] Dr. Kalie Rodas EGFR-NON AF NEW ZEALANDER 7 mL/min/1.73m2 Critically low >=60 [facility] Comment on above: Performed By: #### M ALBCRL #### [facility] [address] [place] [address] Dr. Kalie Rodas Glucose [Mass/Vol] 58 mg/dL Critically low 74-[address] [facility] Comment on above: Performed By: #### M ALBCRL #### [facility] [address] [place] [address] Dr. Kalie Rodas Potassium [Moles/Vol] 4.4 mmol/L Normal 3.5-5.1 [facility] Comment on above: Performed By: #### M ALBCRL #### [facility] [address] [place] [address] Dr. Kalie Rodas Sodium [Moles/Vol] 133 mmol/L Critically low 136-[address] [facility] Comment on above: Performed By: #### M ALBCRL #### [facility] [address] [place] [address] Dr. Kalie Rodas Urea nitrogen [Mass/Vol] 85.0 mg/dL Critically high 7.0-18.0 [facility] Comment on above: Performed By: #### M ALBCRL #### [facility] [address] [place] [address] Dr. Kalie Rodas Urea nitrogen/Creatinine [Mass ratio] 10.5 mg/mg Normal [facility] Comment on above: Performed By: #### M ALBCRL #### [facility] [address] [place] [address] Dr. Kalie Rodas URINE MICROSCOPIC ONLYon BACTERIA SMALL Abnormal NONE SEEN [facility] Comment on above: Performed By: #### M ALBCRL #### [facility] [address] [place] [address] Dr. Kalie Rodas Bacteria identified Cx Nom (U) INDICATED Normal [facility] Comment on above: Performed By: #### M ALBCRL #### [facility] [address] [place] [address] Dr. Kalie Rodas CAST SEEN Abnormal NONE SEEN [facility] Comment on above: Performed By: #### M ALBCRL #### [facility] [address] [place] [address] Dr. Kalie Rodas Crystals LM Nom (Urine sed) NONE SEEN Normal NONE SEEN [facility] Comment on above: Performed By: #### M ALBCRL #### [facility] [address] [place] [address] Dr. Kalie Rodas Epithelial cells LM Ql (Urine sed) FEW Abnormal NONE SEEN /RARE [facility] Comment on above: Performed By: #### M ALBCRL #### [facility] [address] [address] [address] Kalie Rodas HYALINE CAST RARE Normal [facility] Comment on above: Performed By: #### M ALBCRL #### [facility] [id number] Kalie Rodas MUCOUS NONE SEEN Normal NONE SEEN [facility] Comment on above: Performed By: #### M ALBCRL #### [facility] [address] [place] [address] Dr. Kalie Rodas RBC 10-20 Abnormal 0-2 [facility] Comment on above: Performed By: #### M ALBCRL #### [facility] [address] [place] [address] Dr. Kalie Rodas WBC 10-20 Abnormal NONE SEEN [facility] Comment on above: Performed By: #### M ALBCRL #### [facility] [address] [place] [address] Dr. Kalie Rodas XR CHEST 1 Von [...] GABRIELE RICE Date: 2022-05-27 18:52 Normal [facility] RESPIRATORY PANEL PLUSon Adenovirus Not detected Normal NOT DETECTED [facility] Comment on above: Performed By: #### C MP, TSH #### [facility] [address] [place] [address] Dr. Kalie Metcalf Parapertusis Not detected Normal NOT DETECTED [facility] Comment on above: Performed By: #### C MP, TSH #### [facility] [address] [place] [address] Dr. Kalie Metcalf Pertussis Not detected Normal NOT DETECTED [facility] Comment on above: Performed By: #### C MP, TSH #### [facility] [address] [place] [address] Dr. Kalie Rodas Chlamydia Pneumoniae Not detected Normal NOT DETECTED [facility] Comment on above: Performed By: #### C MP, TSH #### [facility] [address] [place] [address] Dr. Kalie Rodas Coronavirus 229E Not detected Normal NOT DETECTED [facility] Comment on above: Performed By: #### C MP, TSH #### [facility] [address] [place] [address] Dr. Kalie Rodas Coronavirus HKU1 Not detected Normal NOT DETECTED [facility] Comment on above: Performed By: #### C MP, TSH #### [facility] [address] [place] [address] Dr. Kalie Rodas Coronavirus NL63 Not detected Normal NOT DETECTED [facility] Comment on above: Performed By: #### C MP, TSH #### [facility] [address] [place] [address] Dr. Kalie Rodas Coronavirus OC43 Not detected Normal NOT DETECTED [facility] Comment on above: Performed By: #### C MP, TSH #### [facility] [address] [place] [address] Dr. Kalie Rodas Influenza A H1 2009 Not detected Normal NOT DETECTED [facility] Comment on above: Performed By: #### C MP, TSH #### [facility] [address] [place] [address] Dr. Kalie Rodas Influenza A H3 Not detected Normal NOT DETECTED [facility] Comment on above: Performed By: #### C MP, TSH #### [facility] [address] [place] [address] Dr. Kalie Rodas Influenza B Not detected Normal NOT DETECTED [facility] Comment on above: Performed By: #### C MP, TSH #### [facility] [address] [address] [address] Kalie Rodas Metapneumovirus Not detected Normal NOT DETECTED [facility] Comment on above: Performed By: #### C MP, TSH #### [facility] [address] [address] [address] Kalie Rodas Mycoplas. Pneumoniae Not detected Normal NOT DETECTED [facility] Comment on above: Performed By: #### C MP, TSH #### [facility] [address] [address] [address] Kalie Rodas Parainfluenza 1 Not detected Normal NOT DETECTED [facility] Comment on above: Performed By: #### C MP, TSH #### [facility] [address] [place] [address] Dr. Kalie Rodas Parainfluenza 2 Not detected Normal NOT DETECTED [facility] Comment on above: Performed By: #### C MP, TSH #### [facility] [address] [place] [address] Dr. Kalie Rodas Parainfluenza 3 Not detected Normal NOT DETECTED [facility] Comment on above: Performed By: #### C MP, TSH #### [facility] [address] [place] [address] Dr. Kalie Rodas Parainfluenza 4 Not detected Normal NOT DETECTED [facility] Comment on above: Performed By: #### C MP, TSH #### [facility] [address] [place] [address] Dr. Kalie Rodas Rhino/Enterovirus Not detected Normal NOT DETECTED [facility] Comment on above: Performed By: #### C MP, TSH #### [facility] [address] [place] [address] Dr. Kalie Rodas RP2 Header 1 RESPIRATORY PANEL: VIRUSES Normal [facility] Comment on above: Performed By: #### C MP, TSH #### [facility] [address] [address] [address] Kalie Rodas RP2 Header 2 RESPIRATORY PANEL: BACTERIA Normal [facility] Comment on above: Performed By: #### C MP, TSH #### [facility] [address] [place] [address] Dr. Kalie Rodas RSV Not detected Normal NOT DETECTED [facility] Comment on above: Performed By: #### C MP, TSH #### [facility] [address] [place] [address] Dr. Kalie Rodas SARS-CoV-2 (COVID-19) RNA BENTLEY+probe Ql (Unsp spec) Detected Critically abnormal NOT DETECTED [facility] Comment on above: Performed By: #### C MP, TSH #### [facility] [address] [place] [address] Dr. Kalie Rodas MICROALBUMIN/ CREATININE RAT IOon 11-26-2021 Albumin, Urine 136.7 ug/mL Normal Not Estab. [facility] Comment on above: Performed By: #### M ALBCRL #### [facility] [address] [place] [address] Dr. Kalie Rodas Albumin/ Creatinine Ratio 81 mg/g creat Critically high 0-29 [facility] Comment on above: Result Comment: Norm al: 0 - 29 Moderately increased: 30 - 300 Severely increased: >300 Performed By: #### M ALBCRL #### [facility] [address] [place] [address] Dr. Kalie Rodas Creatinine, Urine 169.4 mg/dL Normal Not Estab. [facility] Comment on above: Performed By: #### M ALBCRL #### [facility] [address] [place] [address] Dr. Kalie Rodas VIT D 25-OH LABCORPon 2021 Vitamin D, 25-Hydroxy 43.3 ng/mL Normal 30.0-100.0 [facility] Comment on above: Result Comment: Heather min D deficiency has been defined by the [place] of Medicine and an Endocrine Society practice guideline as a level of serum 25-OH vitamin D less than 20 ng/mL (1,2). The Endocrine Society went on to further define vitamin D insufficiency as a level between 21 and 29 ng/mL (2). 1. IOM ([place] of Medicine). 2010. Dietary reference intakes for calcium and D. [place]: The National Academies Press. 2. Patricia MF, Arron [place], Elizabeth CARBAJAL, et al. Evaluation, treatment, and prevention of vitamin D deficiency: an Endocrine Society clinical practice guideline. JCEM. 2010; 96(7):1911-30. Performed By: #### V ITADLC #### [facility] [address] [place] [address] Dr. Kalie Rodas CBC AUTO DIFFon 11-25-2021 BASO # 0.1 103/ul Normal 0.0-0.1 [facility] Comment on above: Performed By: #### C VDTBH #### [facility] [address] [place] [address] Dr. Kalie Rodas Basophils/100 WBC (Bld) 0.6 % Normal 0.2-2.0 [facility] Comment on above: Performed By: #### C VDTBH #### [facility] [address] [place] [address] Dr. Kalie Rodas EO # 0.3 103/ul Normal 0.0-0.7 [facility] Comment on above: Performed By: #### C VDTBH #### [facility] [address] [place] [address] Dr. Kalie Rodas Eosinophils/100 WBC (Bld) 3.1 % Normal 0.9-7.0 [facility] Comment on above: Performed By: #### C VDTBH #### [facility] [address] [place] [address] Dr. Kalie Rodas Erythrocyte distribution width (RBC) [Ratio] 13.4 % Normal 11.0-15.0 [facility] Comment on above: Performed By: #### C VDTBH #### [facility] [address] [place] [address] Dr. Kalie Rodas Hematocrit (Bld) [Volume fraction] 44.1 % Normal 42.0-54.0 [facility] Comment on above: Performed By: #### C VDTBH #### [facility] [address] [place] [address] Dr. Kalie Rodas Hemoglobin (Bld) [Mass/Vol] 15.0 g/dL Normal 14.0-18.0 [facility] Comment on above: Performed By: #### C VDTBH #### [facility] [address] [address] [address] Kalie Rodas IG # 0.05 10e3/ul Critically high 0.00-0.03 [facility] Comment on above: Performed By: #### C VDTBH #### [facility] [address] [place] [address] Dr. Kalie Rodas IG % 0.5 % Normal 0.0-0.5 [facility] Comment on above: Performed By: #### C VDTBH #### [facility] [address] [place] [address] Dr. Kalie Rodas LYMPH # 1.9 103/ul Normal 1.2-3.8 [facility] Comment on above: Performed By: #### C VDTBH #### [facility] [address] [place] [address] Dr. Kalie Rodas Lymphocytes/100 WBC (Bld) 20.0 % Critically low 20.5-60.0 [facility] Comment on above: Performed By: #### C VDTBH #### [facility] [address] [place] [address] Dr. Kalie Rodas MANUAL DIFF REQ NO Normal [facility] Comment on above: Performed By: #### C VDTBH #### [facility] [address] [address] [address] Kalie Rodas MCH (RBC) [Entitic mass] 31.1 pg Normal 25.9-34.0 [facility] Comment on above: Performed By: #### C VDTBH #### [facility] [address] [place] [address] Dr. Kalie Rodas MCHC (RBC) [Mass/Vol] 34.0 g/dL Normal 29.9-35.2 [facility] Comment on above: Performed By: #### C VDTBH #### [facility] [address] [address] [address] Kalie Rodas MCV (RBC) [Entitic vol] 91.3 fL Normal 80.0-94.0 [facility] Comment on above: Performed By: #### C VDTBH #### [facility] [address] [place] [address] Dr. Kalie Rodas MONO # 0.8 103/ul Normal 0.3-0.8 [facility] Comment on above: Performed By: #### C VDTBH #### [facility] [address] [place] [address] Dr. Kalie Rodas Monocytes/100 WBC (Bld) 8.4 % Normal 1.7-12.0 [facility] Comment on above: Performed By: #### C VDTBH #### [facility] [address] [place] [address] Dr. Kalie Rodas NEUT # 6.3 103/ul Normal 1.4-6.5 [facility] Comment on above: Performed By: #### C VDTB #### [facility] [address] [place] [address] Dr. Kalie Rodas Neutrophils/100 WBC (Bld) 67.4 % Normal 43.0-75.0 [facility] Comment on above: Performed By: #### C VDTBH #### [facility] [address] [place] [address] Dr. Kalie Rodas Platelet mean volume (Bld) [Entitic vol] 9.4 fL Critically low 9.5-13.5 [facility] Comment on above: Performed By: #### C VDTBH #### [facility] [address] [place] [address] Dr. Kalie Rodas PLT 264 103/ul Normal 150-450 [facility] Comment on above: Performed By: #### C VDTBH #### [facility] [address] [place] [address] Dr. Kalie Rodas RBC 4.83 106/ul Normal 4.70-6.10 [facility] Comment on above: Performed By: #### C VDTBH #### [facility] [address] [address] [address] Kalie Rodas WBC 9.3 103/ul Normal 4.0-11.0 [facility] Comment on above: Performed By: #### C VDTBH #### [facility] [address] [place] [address] Dr. Kalie Rodas FREE T4on 11-25-2021 Free T4 [Mass/Vol] 0.94 ng/dL Normal 0.76-1.46 [facility] Comment on above: Performed By: #### F T4 #### [facility] [address] [address] [address] Kalie Rodas LIPID PROFILEon 11-25-2021 CHOL-HDL RATIO NORM SEE BELOW Normal [facility] Comment on above: Result Comment: 3.3 - 4.4 LOW RISK 4.4 - 7.1 AVERAGE RISK 7.1 - 11.0 MODERATE RISK >11.0 HIGH RISK Performed By: #### C MP, TSH #### [facility] [address] [place] [address] Dr. Kalie Rodas Cholesterol [Mass/Vol] 179 mg/dL Normal <=200 [facility] Comment on above: Performed By: #### C MP, TSH #### [facility] [address] [place] [address] Dr. Kalie Rodas Cholesterol in HDL [Mass/Vol] 40 mg/dL Normal 40-60 [facility] Comment on above: Performed By: #### C MP, TSH #### [facility] [address] [address] [address] Kalie Rodas Cholesterol in LDL [Mass/Vol] 108.0 mg/dL Normal [facility] Comment on above: Performed By: #### C MP, TSH #### [facility] [address] [place] [address] Dr. Kalie Rodas Cholesterol.total/Chol esterol in HDL [Mass ratio] 4.5 {ratio} Normal [facility] Comment on above: Performed By: #### C MP, TSH #### [facility] [address] [address] [address] Kalie Rodas HDL NORMAL > or = 60 mg/dl - LO W CARDIOVASCULAR RISK <40 mg/dl - HIGH CARDIOVASCULAR RISK Normal [facility] Comment on above: Performed By: #### C MP, TSH #### [facility] [address] [address] [address] Kalie Rodas LDL CALC NORMAL SEE BELOW Normal [facility] Comment on above: Result Comment: <100 mg/dl OPTIMAL 100 - 129 mg/dl NEAR OR ABOVE OPTIMAL 130 - 159 mg/dl BORDERLINE HIGH 160 - 189 mg/dl HIGH >190 mg/dl VERY HIGH Performed By: #### C MP, TSH #### [facility] [address] [address] [address] Kalie Rodas Triglyceride [Mass/Vol] 155 mg/dL Critically high <=150 [facility] Comment on above: Performed By: #### C MP, TSH #### [facility] [address] [address] [address] Kalie Rodas VLDL CALC 31.0 mg/dL Normal [facility] Comment on above: Performed By: #### C MP, TSH #### [facility] [address] [address] [address] Kalie Rodas PHOSPHORUSon 11-25-2021 Phosphate [Mass/Vol] 2.5 mg/dL Critically low 2.6-4.7 [facility] Comment on above: Performed By: #### C MP, TSH #### [facility] [address] [address] [address] Kalie Rodas PROF 14(COMP METB)on 022 Albumin [Mass/Vol] 3.7 g/dL Normal 3.4-5.0 [facility] Comment on above: Performed By: #### C MP, TSH #### [facility] [address] [address] [address] Kalie Rodas Albumin/Globulin [Mass ratio] 0.9 {ratio} Normal [facility] Comment on above: Performed By: #### C MP, TSH #### [facility] [address] [address] [address] Kalie Rodas ALP [Catalytic activity/Vol] 106 U/L Normal 46-116 [facility] Comment on above: Performed By: #### C MP, TSH #### [facility] [address] [address] [address] Kalie Rodas ALT [Catalytic activity/Vol] 28 U/L Normal 16-63 [facility] Comment on above: Performed By: #### C MP, TSH #### [facility] [address] [address] [address] Kalie Rodas Anion gap [Moles/Vol] 14.9 mmol/L Normal [facility] Comment on above: Performed By: #### C MP, TSH #### [facility] [address] [address] [address] Kalie Rodas AST [Catalytic activity/Vol] 23 U/L Normal 15-37 [facility] Comment on above: Performed By: #### C MP, TSH #### [facility] [address] [address] [address] Kalie Rodas Bilirubin [Mass/Vol] 0.4 mg/dL Normal 0.2-1.0 [facility] Comment on above: Performed By: #### C MP, TSH #### [facility] [address] [address] [address] Kalie Rodas Calcium [Mass/Vol] 9.2 mg/dL Normal 8.5-10.1 [facility] Comment on above: Performed By: #### C MP, TSH #### [facility] [address] [address] [address] Kalie Rodas Chloride [Moles/Vol] 103 mmol/L Normal 98-107 [facility] Comment on above: Performed By: #### C MP, TSH #### [facility] [address] [address] [address] Kalie Rodas CO2 [Moles/Vol] 23.0 mmol/L Normal 21.0-32.0 [facility] Comment on above: Performed By: #### C MP, TSH #### [facility] [address] [address] [address] Kalie Rodas Creatinine [Mass/Vol] 1.51 mg/dL Critically high 0.70-1.30 [facility] Comment on above: Performed By: #### C MP, TSH #### [facility] [address] [address] [address] Kalie Rodas EGFR-AF NEW ZEALANDER 58 mL/min/1.73m2 Critically low >=60 [facility] Comment on above: Performed By: #### C MP, TSH #### [facility] [address] [address] [address] Kalie Rodas EGFR-NON AF NEW ZEALANDER 48 mL/min/1.73m2 Critically low >=60 [facility] Comment on above: Performed By: #### C MP, TSH #### [facility] [address] [address] [address] Kalie Rodas Globulin (S) [Mass/Vol] 4.3 g/dL Normal [facility] Comment on above: Performed By: #### C MP, TSH #### [facility] [address] [address] [address] Kalie Rodas Glucose [Mass/Vol] 148 mg/dL Critically high 74-106 [facility] Comment on above: Performed By: #### C MP, TSH #### [facility] [address] [place] [address] Dr. Kalie Rodas Potassium [Moles/Vol] 3.9 mmol/L Normal 3.5-5.1 [facility] Comment on above: Performed By: #### C MP, TSH #### [facility] [address] [address] [address] Kalie Rodas Protein [Mass/Vol] 8.0 g/dL Normal 6.4-8.2 [facility] Comment on above: Performed By: #### C MP, TSH #### [facility] [address] [address] [address] Kalie Rodas Sodium [Moles/Vol] 137 mmol/L Normal 136-145 [facility] Comment on above: Performed By: #### C MP, TSH #### [facility] [address] [place] [address] Dr. Kalie Rodas Urea nitrogen [Mass/Vol] 23.0 mg/dL Critically high 7.0-18.0 [facility] Comment on above: Performed By: #### C MP, TSH #### [facility] [address] [address] [address] Kalie Rodas Urea nitrogen/Creatinine [Mass ratio] 15.2 mg/mg Normal [facility] Comment on above: Performed By: #### C MP, TSH #### [facility] [address] [address] [address] Klaie Rodas TSHon 11-25-2021 TSH 1.820 uIU/mL Normal 0.358-3.740 [facility] Comment on above: Performed By: #### C MP, TSH #### [facility] [address] [address] [address] Kalie Rodas Vital Signs Date Time Vital Sign Value Performing Clinician Facility 12-19-2024 08:36-0400 Body height 190.5 cm Gordo Low MD Work Phone: [facility] 12-19-2024 08:36-0400 Body mass index (BMI) [Ratio] 38.37 kg/m2 Gordo Low MD Work Phone: [facility] 12-19-2024 08:36-0400 Body weight 139.25 kg Gordo Low MD Work Phone: [facility] 12-19-2024 08:36-0400 Diastolic blood pressure 78 mm[Hg] Gordo Low MD Work Phone: [facility] 12-19-2024 08:36-0400 Systolic blood pressure 116 mm[Hg] Gordo Low MD Work Phone: [facility] 12-05-2024 11:07-0400 Body mass index (BMI) [Ratio] 38.5 kg/m2 Lexis Keen [employer] Work Phone: [facility] 12-05-2024 11:07-0400 Body weight 139.71 kg Lexis Keen [employer] Work Phone: [facility] 12-05-2024 11:07-0400 Diastolic blood pressure 82 mm[Hg] Lexis Mac-Nossek [employer] Work Phone: [facility] 12-05-2024 11:07-0400 Heart rate 67 /min Lexis Finn-Nossek [employer] Work Phone: [facility] 12-05-2024 11:07-0400 Systolic blood pressure 108 mm[Hg] Lexis Finn-Nossek [employer] Work Phone: [facility] 11-30-2024 08:07-0400 Body temperature 97.39 [degF] Abhi Galicia MD Work Phone: [facility] 11-30-2024 08:07-0400 Diastolic blood pressure 81 mm[Hg] Abhi Galicia MD Work Phone: [facility] 11-30-2024 08:07-0400 Heart rate 67 /min Abhi Galicia MD Work Phone: [facility] 11-30-2024 08:07-0400 Systolic blood pressure 118 mm[Hg] Abhi Galicia MD Work Phone: [facility] 10-23-2024 10:59-0400 Body height 190.5 cm Pac 3 Work Phone: [facility] 10-23-2024 10:59-0400 Body mass index (BMI) [Ratio] 40.4 kg/m2 Pac 3 Work Phone: [facility] 10-23-2024 10:59-0400 Body temperature 97.59 [degF] Pac 3 Work Phone: [facility] 10-23-2024 10:59-0400 Body weight 146.6 kg Pacc 3 Work Phone: [facility] 10-23-2024 10:59-0400 Diastolic blood pressure 82 mm[Hg] Pac 3 Work Phone: [facility] 10-23-2024 10:59-0400 Heart rate 74 /min Pac 3 Work Phone: [facility] 10-23-2024 10:59-0400 SaO2% (BldA) [Mass fraction] 96 % Pacc 3 Work Phone: [facility] 10-23-2024 10:59-0400 Systolic blood pressure 124 mm[Hg] Pacc 3 Work Phone: [facility] 10-16-2024 10:57-0400 Body mass index (BMI) [Ratio] 40.12 kg/m2 Lexis Finn-Nossek [employer] Work Phone: [facility] 10-16-2024 10:57-0400 Body weight 145.6 kg Lexis Finn-Nossek [employer] Work Phone: [facility] 10-16-2024 10:57-0400 Diastolic blood pressure 72 mm[Hg] Lexis Finn-Nossek REVERBERATORY FURNACE SUPERVISOR[employer] Work Phone: [facility] 10-16-2024 10:57-0400 Heart rate 68 /min Lexis Finn-Nossek REVERBERATORY F[employer]NACE SUPERVISOR[employer] Work Phone: [facility] 10-16-2024 10:57-0400 Systolic blood pressure 106 mm[Hg] Lexis Finn-Nossek REVERBERATORY F[employer]NACE SUPERVISOR[employer] Work Phone: [facility] 08-28-2024 13:13-0400 Body height 190.5 cm Ivanna Dean PA Work Phone: [facility] 08-28-2024 13:13-0400 Body mass index (BMI) [Ratio] 39.57 kg/m2 Ivanna Bhagatmer PA Work Phone: [facility] 08-28-2024 13:13-0400 Body weight 143.61 kg Ivanna Bahgatmer PA Work Phone: [facility] 08-28-2024 13:13-0400 Diastolic blood pressure 74 mm[Hg] Vianna Hemmer PA Work Phone: [facility] 08-28-2024 13:13-0400 Heart rate 86 /min Ivanna Hemmer PA Work Phone: [facility] 08-28-2024 13:13-0400 Respiratory rate 16 /min Ivanna Hemmer PA Work Phone: [facility] 08-28-2024 13:13-0400 SaO2% (BldA) [Mass fraction] 97 % Ivanna Hemmer PA Work Phone: [facility] 08-28-2024 13:13-0400 Systolic blood pressure 102 mm[Hg] Ivanna Hemmer PA Work Phone: [facility] 08-09-2024 09:44-0400 Body height 190.5 cm Francisco Houser MD Work Phone: [facility] 08-09-2024 09:44-0400 Body mass index (BMI) [Ratio] 39.75 kg/m2 Francisco Houser MD Work Phone: [facility] 08-09-2024 09:44-0400 Body weight 144.24 kg Francisco Houser MD Work Phone: [facility] 08-09-2024 09:44-0400 Diastolic blood pressure 80 mm[Hg] Francisco Houser MD Work Phone: [facility] 08-09-2024 09:44-0400 Heart rate 68 /min Francisco Houser MD Work Phone: [facility] 08-09-2024 09:44-0400 Respiratory rate 18 /min Francisco Houser MD Work Phone: [facility] 08-09-2024 09:44-0400 SaO2% (BldA) [Mass fraction] 98 % Francisco Houser MD Work Phone: [facility] 08-09-2024 09:44-0400 Systolic blood pressure 118 mm[Hg] Francisco Houser MD Work Phone: [facility] 07-18-2024 13:06-0400 Body height 190.5 cm Abhi Galicia MD Work Phone: [facility] 07-18-2024 13:06-0400 Body mass index (BMI) [Ratio] 39.62 kg/m2 Abhi Galicia MD Work Phone: [facility] 07-18-2024 13:06-0400 Body temperature 97.5 [degF] Abhi Galicia MD Work Phone: [facility] 07-18-2024 13:06-0400 Body weight 143.79 kg Abhi Galicia MD Work Phone: [facility] 07-18-2024 13:06-0400 Diastolic blood pressure 76 mm[Hg] Abhi Galicia MD Work Phone: [facility] 07-18-2024 13:06-0400 Heart rate 83 /min Abhi Galicia MD Work Phone: [facility] 07-18-2024 13:06-0400 Systolic blood pressure 148 mm[Hg] Abhi Galicia MD Work Phone: [facility] 07-10-2024 09:29-0400 Body height 193.04 cm [facility] 07-10-2024 09:29-0400 Body mass index (BMI) [Ratio] 38.6 kg/m2 [facility] 07-10-2024 09:29-0400 Body weight 143.84 kg [facility] 07-10-2024 09:29-0400 Diastolic blood pressure 79 mm[Hg] [facility] 07-10-2024 09:29-0400 Heart rate 85 /min [facility] 07-10-2024 09:29-0400 Respiratory rate 18 /min [facility] 07-10-2024 09:29-0400 SaO2% (BldA) [Mass fraction] 98 % [facility] 07-10-2024 09:29-0400 Systolic blood pressure 115 mm[Hg] [facility] 06-28-2024 10:05-0400 Diastolic blood pressure 64 mm[Hg] Lexis Finn-Nossek [employer]BERATORY F[employer]NACE SUPERVISOR[employer] Work Phone: [facility] 06-28-2024 10:05-0400 Systolic blood pressure 118 mm[Hg] Lexis Finn-Nossek [employer]BERATORY F[employer]NACE SUPERVISOR[employer] Work Phone: [facility] 06-28-2024 09:57-0400 Body mass index (BMI) [Ratio] 39.62 kg/m2 Lexis Finn-Nossek RE[employer]BERATORY F[employer]NACE SUPERVISOR[employer] Work Phone: [facility] 06-28-2024 09:57-0400 Body weight 143.79 kg Lexis Finn-Nossek RE[employer]BERATORY F[employer]NACE SUPERVISOR[employer] Work Phone: [facility] 06-28-2024 09:57-0400 Heart rate 74 /min Lexis Finn-Nossek RE[employer]BERATORY F[employer]NACE SUPERVISOR[employer] Work Phone: [facility] 06-15-2024 12:58-0500 Body weight 143.8 kg Anibal Riepenhoff REVERBERATORY FURNACE SUPERVISOR.[employer] GRADER Work Phone: [facility] 06-15-2024 12:58-0500 Diastolic blood pressure 82 mm[Hg] Anibal Riepenhoff RE[employer]BERATORY FURNACE SUPERVISOR.[employer] GRADER Work Phone: [facility] 06-15-2024 12:58-0500 Heart rate 81 /min Anibal Riepenhoff REVERBERATORY FURNACE SUPERVISOR.[employer] GRADER Work Phone: [facility] 06-15-2024 12:58-0500 Systolic blood pressure 126 mm[Hg] Anibal Riepenhoff REVERBERATORY FURNACE SUPERVISOR.[employer] GRADER Work Phone: [facility] 05-30-2024 08:18-0500 Blood Pressure Location [facility] 05-30-2024 08:18-0500 Diastolic blood pressure 79 mm[Hg] [facility] 05-30-2024 08:18-0500 Heart rate 69 /min [facility] 05-30-2024 08:18-0500 Respiratory rate 18 /min [facility] 05-30-2024 08:18-0500 Systolic blood pressure 121 mm[Hg] [facility] 05-17-2024 12:50-0500 Body mass index (BMI) [Ratio] 39.62 kg/m2 Lexis Finn-Nossek REVERBERATORY F[employer]NACE SUPERVISOR[employer] Work Phone: [facility] 05-17-2024 12:50-0500 Body weight 143.79 kg Lexis Finn-Nossek REVERBERATORY F[employer]NACE SUPERVISOR[employer] Work Phone: [facility] 05-17-2024 12:50-0500 Diastolic blood pressure 78 mm[Hg] Lexis Finn-Nossek REVERBERATORY F[employer]NACE SUPERVISOR[employer] Work Phone: [facility] 05-17-2024 12:50-0500 Heart rate 82 /min Lexis Finn-Nossek REVERBERATORY F[employer]NACE SUPERVISOR[employer] Work Phone: [facility] 05-17-2024 12:50-0500 Systolic blood pressure 122 mm[Hg] Lexis Finn-Nossek REVERBERATORY F[employer]NACE SUPERVISOR[employer] Work Phone: [facility] 05-15-2024 10:41-0500 Heart rate 64 /min [facility] 05-15-2024 10:41-0500 SaO2% (BldA) [Mass fraction] 95 % [facility] 05-15-2024 10:41-0500 Diastolic blood pressure 87 mm[Hg] [facility] 05-15-2024 10:41-0500 Mean blood pressure 100 mm[Hg] [facility] 05-15-2024 10:41-0500 Systolic blood pressure 126 mm[Hg] [facility] 05-15-2024 10:41-0500 Respiratory rate 15 /min [facility] 05-15-2024 10:41-0500 Body temperature 97.52 [degF] [facility] 05-15-2024 09:19-0500 Heart rate 63 /min [facility] 05-15-2024 09:19-0500 SaO2% (BldA) [Mass fraction] 96 % [facility] 05-15-2024 09:19-0500 Respiratory rate 16 /min [facility] 05-15-2024 09:19-0500 Blood Pressure Location [facility] 05-15-2024 09:19-0500 Diastolic blood pressure 77 mm[Hg] [facility] 05-15-2024 09:19-0500 Mean blood pressure 91 mm[Hg] [facility] 05-15-2024 09:19-0500 Systolic blood pressure 118 mm[Hg] [facility] 05-15-2024 09:19-0500 Body temperature 97.7 [degF] [facility] 05-15-2024 09:10-0500 Blood Pressure Location [facility] 05-15-2024 09:10-0500 Body temperature 97.88 [degF] [facility] 05-15-2024 09:10-0500 Diastolic blood pressure 73 mm[Hg] [facility] 05-15-2024 09:10-0500 Heart rate 66 /min [facility] 05-15-2024 09:10-0500 Respiratory rate 6 /min [facility] 05-15-2024 09:10-0500 SaO2% (BldA) [Mass fraction] 94 % [facility] 05-15-2024 09:10-0500 Systolic blood pressure 116 mm[Hg] [facility] 05-15-2024 09:00-0500 Respiratory rate 12 /min [facility] 05-15-2024 08:55-0500 Respiratory rate 10 /min [facility] 05-15-2024 08:45-0500 Body temperature 97.16 [degF] [facility] 05-15-2024 08:40-0500 Respiratory rate 14 /min [facility] 05-15-2024 06:02-0500 Mean blood pressure 92 mm[Hg] [facility] 05-15-2024 06:01-0500 Heart rate 78 /min [facility] 05-15-2024 06:00-0500 Body temperature 98.24 [degF] [facility] 05-10-2024 09:25-0500 Body height 190.5 cm Francisco Houser MD Work Phone: [facility] 05-10-2024 09:25-0500 Body mass index (BMI) [Ratio] 40.25 kg/m2 Francisco Houser MD Work Phone: [facility] 05-10-2024 09:25-0500 Body weight 146.06 kg Francisco Houser MD Work Phone: [facility] 05-10-2024 09:25-0500 Diastolic blood pressure 70 mm[Hg] Francisco Houser MD Work Phone: [facility] 05-10-2024 09:25-0500 Heart rate 63 /min Francisco Houser MD Work Phone: [facility] 05-10-2024 09:25-0500 Respiratory rate 18 /min Francisco Houser MD Work Phone: [facility] 05-10-2024 09:25-0500 SaO2% (BldA) [Mass fraction] 99 % Francisco Houser MD Work Phone: [facility] 05-10-2024 09:25-0500 Systolic blood pressure 110 mm[Hg] Francisco Houser MD Work Phone: [facility] 05-03-2024 08:46-0500 Diastolic blood pressure 80 mm[Hg] [facility] 05-03-2024 08:46-0500 Heart rate 76 /min [facility] 05-03-2024 08:46-0500 Mean blood pressure 98 mm[Hg] [facility] 05-03-2024 08:46-0500 Systolic blood pressure 135 mm[Hg] [facility] 05-03-2024 08:46-0500 Heart rate 71 /min [facility] 05-03-2024 08:46-0500 SaO2% (BldA) [Mass fraction] 96 % [facility] 05-03-2024 08:46-0500 Diastolic blood pressure 72 mm[Hg] [facility] 05-03-2024 08:46-0500 Mean blood pressure 85 mm[Hg] [facility] 05-03-2024 08:46-0500 Systolic blood pressure 112 mm[Hg] [facility] 04-19-2024 14:05-0500 Body height 190.5 cm Ivanna Hemmer PA Work Phone: [facility] 04-19-2024 14:05-0500 Body mass index (BMI) [Ratio] 39.97 kg/m2 Ivanna Hemmer PA Work Phone: [facility] 04-19-2024 14:05-0500 Body weight 145.06 kg Ivanna Hemmer PA Work Phone: [facility] 04-19-2024 14:05-0500 Diastolic blood pressure 78 mm[Hg] Ivanna Hemmer PA Work Phone: [facility] 04-19-2024 14:05-0500 Heart rate 60 /min Ivanna Hemmer PA Work Phone: [facility] 04-19-2024 14:05-0500 Respiratory rate 16 /min Ivanna Hemmer PA Work Phone: [facility] 04-19-2024 14:05-0500 SaO2% (BldA) [Mass fraction] 99 % Ivanna LAW Work Phone: [facility] 04-19-2024 14:05-0500 Systolic blood pressure 104 mm[Hg] Ivanna LAW Work Phone: [facility] 04-18-2024 08:25-0500 Blood Pressure Location [facility] 04-18-2024 08:25-0500 Body temperature 98.6 [degF] [facility] 04-18-2024 08:25-0500 Diastolic blood pressure 82 mm[Hg] [facility] 04-18-2024 08:25-0500 Heart rate 72 /min [facility] 04-18-2024 08:25-0500 Systolic blood pressure 112 mm[Hg] [facility] 03-29-2024 09:26-0500 Body mass index (BMI) [Ratio] 39.37 kg/m2 Lexis Finn-Nossek REVERBERATORY F[employer]NACE SUPERVISOR[employer] Work Phone: [facility] 03-29-2024 09:26-0500 Body weight 142.88 kg Lexis Finn-Nossek REVERBERATORY FURNACE SUPERVISOR[employer] Work Phone: [facility] 03-29-2024 09:26-0500 Diastolic blood pressure 68 mm[Hg] Lexis Finn-Nossek REVERBERATORY FURNACE SUPERVISOR[employer] Work Phone: [facility] 03-29-2024 09:26-0500 Heart rate 98 /min Lexis Finn-Nossek REVERBERATORY FURNACE SUPERVISOR[employer] Work Phone: [facility] 03-29-2024 09:26-0500 Systolic blood pressure 116 mm[Hg] Lexis Finn-Nossek REVERBERATORY F[employer]NACE SUPERVISOR[employer] Work Phone: [facility] 02-23-2024 08:24-0500 Body height 190.5 cm Gordo Low MD Work Phone: [facility] 02-23-2024 08:24-0500 Body mass index (BMI) [Ratio] 39.25 kg/m2 Gordo Low MD Work Phone: [facility] 02-23-2024 08:24-0500 Body weight 142.43 kg Gordo Low MD Work Phone: [facility] 02-23-2024 08:24-0500 Diastolic blood pressure 86 mm[Hg] Gordo Low MD Work Phone: [facility] 02-23-2024 08:24-0500 Systolic blood pressure 130 mm[Hg] Gordo Low MD Work Phone: [facility] 02-09-2024 12:52-0400 Body mass index (BMI) [Ratio] 39.12 kg/m2 Lexis Finn-Nossek REVERBERATORY F[employer]NACE SUPERVISOR[employer] Work Phone: [facility] 02-09-2024 12:52-0400 Body weight 141.98 kg Lexis Finn-Nossek REVERBERATORY FURNACE SUPERVISOR[employer] Work Phone: [facility] 02-09-2024 12:52-0400 Diastolic blood pressure 92 mm[Hg] Lexis Finn-Nossek REVERBERATORY F[employer]NACE SUPERVISOR[employer] Work Phone: [facility] 02-09-2024 12:52-0400 Systolic blood pressure 142 mm[Hg] Lexis Finn-Nossek REVERBERATORY F[employer]NACE SUPERVISOR[employer] Work Phone: [facility] 01-05-2024 09:38-0400 Body height 190.5 cm Francisco Houser MD Work Phone: [facility] 01-05-2024 09:38-0400 Body mass index (BMI) [Ratio] 38.5 kg/m2 Francisco Houser MD Work Phone: [facility] 01-05-2024 09:38-0400 Body weight 139.71 kg Francisco Houser MD Work Phone: [facility] 01-05-2024 09:38-0400 Heart rate 72 /min Francisco Houser MD Work Phone: [facility] 01-05-2024 09:38-0400 Respiratory rate 18 /min Francisco Houser MD Work Phone: [facility] Comment on above: O2 SAT 97% 12-15-2023 12:56-0400 Body mass index (BMI) [Ratio] 38.37 kg/m2 Lexis Finn-Nossek RE[employer]BERATORY F[employer]NACE SUPERVISOR[employer] Work Phone: [facility] 12-15-2023 12:56-0400 Body weight 139.25 kg Lexis Finn-Nossek REVERBERATORY F[employer]NACE SUPERVISOR[employer] Work Phone: [facility] 12-15-2023 12:56-0400 Diastolic blood pressure 78 mm[Hg] Lexis Finn-Nossek REVERBERATORY F[employer]NACE SUPERVISOR[employer] Work Phone: [facility] 12-15-2023 12:56-0400 Heart rate 97 /min Lexis Finn-Nossek REVERBERATORY F[employer]NACE SUPERVISOR[employer] Work Phone: [facility] 12-15-2023 12:56-0400 Systolic blood pressure 118 mm[Hg] Lexis Finn-Nossek REVERBERATORY F[employer]NACE SUPERVISOR[employer] Work Phone: [facility] 09-07-2023 09:34-0400 Body height 190.5 cm [facility] 09-07-2023 09:34-0400 Body mass index (BMI) [Ratio] 36.9 kg/m2 [facility] 09-07-2023 09:34-0400 Body temperature 97.4 [degF] [facility] 09-07-2023 09:34-0400 Body weight 133.97 kg [facility] 09-07-2023 09:34-0400 Diastolic blood pressure 61 mm[Hg] [facility] 09-07-2023 09:34-0400 Heart rate 75 /min [facility] 09-07-2023 09:34-0400 Respiratory rate 18 /min [facility] 09-07-2023 09:34-0400 SaO2% (BldA) [Mass fraction] 99 % [facility] 09-07-2023 09:34-0400 Systolic blood pressure 97 mm[Hg] [facility] 02-22-2023 03:46-0500 Diastolic blood pressure 85 mm[Hg] [facility] 02-22-2023 03:46-0500 Heart rate 81 /min [facility] 02-22-2023 03:46-0500 Respiratory rate 20 /min [facility] 02-22-2023 03:46-0500 SaO2% (BldA) [Mass fraction] 98 % [facility] 02-22-2023 03:46-0500 Systolic blood pressure 124 mm[Hg] [facility] 02-21-2023 21:34-0500 Body height 190.5 cm [facility] 02-21-2023 21:34-0500 Body temperature 98.2 [degF] [facility] 02-21-2023 21:34-0500 Body weight 143.78 kg [facility] 02-13-2023 07:30-0500 Body temperature 98.4 [degF] [facility] 02-13-2023 07:30-0500 Diastolic blood pressure 76 mm[Hg] [facility] 02-13-2023 07:30-0500 Heart rate 73 /min [facility] 02-13-2023 07:30-0500 Respiratory rate 18 /min [facility] 02-13-2023 07:30-0500 SaO2% (BldA) [Mass fraction] 96 % [facility] 02-13-2023 07:30-0500 Systolic blood pressure 124 mm[Hg] [facility] 02-08-2023 14:53-0400 Body height 190.5 cm [facility] 02-07-2023 19:10-0400 Respiratory rate 18 /min [facility] 02-07-2023 16:04-0400 Heart rate 74 /min [facility] 02-07-2023 13:17-0400 Body height 190.5 cm [facility] 02-07-2023 13:17-0400 Body temperature 98.2 [degF] [facility] 02-07-2023 13:17-0400 Body weight 141.9 kg [facility] 02-07-2023 13:17-0400 Diastolic blood pressure 64 mm[Hg] [facility] 02-07-2023 13:17-0400 SaO2% (BldA) [Mass fraction] 100 % [facility] 02-07-2023 13:17-0400 Systolic blood pressure 128 mm[Hg] [facility] 01-23-2023 17:47-0400 Heart rate 84 /min [facility] 01-23-2023 17:44-0400 Diastolic blood pressure 90 mm[Hg] [facility] 01-23-2023 17:44-0400 Respiratory rate 18 /min [facility] 01-23-2023 17:44-0400 SaO2% (BldA) [Mass fraction] 98 % [facility] 01-23-2023 17:44-0400 Systolic blood pressure 121 mm[Hg] [facility] 01-23-2023 16:21-0400 Body height 190.5 cm [facility] 01-23-2023 16:21-0400 Body temperature 98 [degF] [facility] 01-23-2023 16:21-0400 Body weight 142.4 kg [facility] 12-21-2022 14:00-0400 Body height 190.5 cm Fani Dill Other [facility] [facility] Other 12-21-2022 14:00-0400 Body mass index (BMI) [Ratio] 40.59 kg/m2 Kashlessstephen Joinnussherry Other [facility] Other 12-21-2022 14:00-0400 Body temperature 96 [degF] Fani Dill Other [facility] Other 12-21-2022 14:00-0400 Body weight 147.33 kg Fani Dill Other [facility] Other 12-21-2022 14:00-0400 Diastolic blood pressure 87 mm[Hg] Fani Dill Other [facility] Other 12-21-2022 14:00-0400 Respiratory rate 20 /min Fani Dill Other [facility] Other 12-21-2022 14:00-0400 SaO2% (BldA) [Mass fraction] 99 % Fani Dill Other [facility] Other 12-21-2022 14:00-0400 Systolic blood pressure 135 mm[Hg] Fani Dill Other [facility] Other 09-08-2022 11:30-0400 Diastolic blood pressure 78 mm[Hg] Gillian Batista MD Work Phone: [facility] 09-08-2022 11:30-0400 Heart rate 76 /min Gillian Batista MD Work Phone: [facility] 09-08-2022 11:30-0400 Respiratory rate 16 /min Gillian Batista MD Work Phone: [facility] 09-08-2022 11:30-0400 SaO2% (BldA) [Mass fraction] 96 % Gillian Batista MD Work Phone: [facility] 09-08-2022 11:30-0400 Systolic blood pressure 126 mm[Hg] Gillian Batista MD Work Phone: [facility] 09-08-2022 10:06-0400 Body height 190.5 cm Gillian Batista MD Work Phone: [facility] 09-08-2022 10:06-0400 Body mass index (BMI) [Ratio] 40 kg/m2 Gillian Batista MD Work Phone: [facility] 09-08-2022 10:06-0400 Body temperature 97.7 [degF] Gillian Batista MD Work Phone: [facility] 09-08-2022 10:06-0400 Body weight 145.15 kg Gillian Batista MD Work Phone: [facility] 07-08-2022 05:42-0400 Body temperature 97.9 [degF] Sachin Mckeon MD Work Phone: [facility] 07-08-2022 05:42-0400 Diastolic blood pressure 67 mm[Hg] Sachin Mckeon MD Work Phone: [facility] 07-08-2022 05:42-0400 Heart rate 64 /min Sachin Mckeon MD Work Phone: [facility] 07-08-2022 05:42-0400 Respiratory rate 18 /min Sachin Mckoen MD Work Phone: [facility] 07-08-2022 05:42-0400 SaO2% (BldA) [Mass fraction] 97 % Sachin Mckeon MD Work Phone: [facility] 07-08-2022 05:42-0400 Systolic blood pressure 131 mm[Hg] Sachin Mckeon MD Work Phone: [facility] 07-07-2022 13:22-0400 Body height 195.6 cm Sachin Mckeon MD Work Phone: [facility] 07-07-2022 13:18-0400 Body mass index (BMI) [Ratio] 37.91 kg/m2 Sachin Mckeon MD Work Phone: [facility] 07-07-2022 13:18-0400 Body weight 145 kg Sachin Mckeon MD Work Phone: [facility] 06-30-2022 07:37-0400 Body temperature 97.5 [degF] Carlyle Gilmore MD Work Phone: [facility] 06-30-2022 07:37-0400 Diastolic blood pressure 84 mm[Hg] Carlyle Gilmore MD Work Phone: [facility] 06-30-2022 07:37-0400 Heart rate 84 /min Carlyle Gilmore MD Work Phone: [facility] 06-30-2022 07:37-0400 Respiratory rate 19 /min Carlyle Gilmore MD Work Phone: [facility] 06-30-2022 07:37-0400 SaO2% (BldA) [Mass fraction] 91 % Carlyle Gilmore MD Work Phone: [facility] 06-30-2022 07:37-0400 Systolic blood pressure 126 mm[Hg] Carlyle Gilmore MD Work Phone: [facility] 06-30-2022 05:12-0400 Body mass index (BMI) [Ratio] 40.08 kg/m2 Carlyle Gilmore MD Work Phone: [facility] 06-30-2022 05:12-0400 Body weight 153.3 kg Carlyle Gilmore MD Work Phone: [facility] 06-28-2022 13:25-0400 Body height 195.6 cm Carlyle Gilmore MD Work Phone: [facility] 06-11-2022 05:55-0500 Body temperature 97.7 [degF] Sachin Mckeon MD Work Phone: [facility] 06-11-2022 05:55-0500 Diastolic blood pressure 87 mm[Hg] Sachin Mckeon MD Work Phone: [facility] 06-11-2022 05:55-0500 Heart rate 79 /min Sachin Mckeon MD Work Phone: [facility] 06-11-2022 05:55-0500 Respiratory rate 16 /min Sachin Mckeon MD Work Phone: [facility] 06-11-2022 05:55-0500 SaO2% (BldA) [Mass fraction] 93 % Sachin Mckeon MD Work Phone: [facility] 06-11-2022 05:55-0500 Systolic blood pressure 132 mm[Hg] Sachin Mckeon MD Work Phone: [facility] 06-09-2022 10:01-0500 Body mass index (BMI) [Ratio] 42.82 kg/m2 Sachin Mckeon MD Work Phone: [facility] 06-09-2022 10:01-0500 Body weight 159.49 kg Sachin Mckeon MD Work Phone: [facility] 06-05-2022 10:18-0500 Body height 193 cm Sachin Mckeon MD Work Phone: [facility] 06-04-2022 16:31-0500 Body temperature 97.7 [degF] Stefani Orlop DO Work Phone: [facility] 06-04-2022 16:31-0500 Diastolic blood pressure 95 mm[Hg] Stefani Orlop DO Work Phone: [facility] 06-04-2022 16:31-0500 Heart rate 76 /min Stefani Orlop DO Work Phone: [facility] 06-04-2022 16:31-0500 Respiratory rate 18 /min Stefani Orlop DO Work Phone: [facility] 06-04-2022 16:31-0500 SaO2% (BldA) [Mass fraction] 96 % Stefani Orlop DO Work Phone: [facility] 06-04-2022 16:31-0500 Systolic blood pressure 146 mm[Hg] Stefani Orlop DO Work Phone: [facility] 06-04-2022 11:39-0500 Body height 193 cm Stefani Orlop DO Work Phone: [facility] 06-04-2022 05:50-0500 Body mass index (BMI) [Ratio] 43.85 kg/m2 Stefani Orlop DO Work Phone: [facility] 06-04-2022 05:50-0500 Body weight 163.3 kg Stefani Orlop DO Work Phone: [facility] [employer] Encounters Encounter Date Encounter Type Care Provider Facility Start: 12-19-2024 End: 12-19-2024 Emily Low MD Work Phone: [facility] Start: 12-19-2024 End: 12-19-2024 Emily Low MD Work Phone: [facility] Start: 12-19-2024 End: 12-19-2024 ambulatory GORDO LOW Not Available Start: 12-19-2024 End: 12-19-2024 Office outpatient visit 25 minutes Gordo Low MD Work Phone: [facility] Comment on above: Tardive dyskinesia ( Primary Dx); Tremor Start: 12-17-2024 End: 12-17-2024 Patient encounter procedure Van Gillis MD Work Phone: Urology Comment on above: Acquired buried peni s (Primary Dx) Start: 12-17-2024 End: 12-17-2024 ambulatory SELF Facility:[facility] Start: 12-06-2024 End: 12-07-2024 Telephone encounter Francisco Houser MD Work Phone: [facility] Endocrinology Comment on above: Medication Problem Start: 12-05-2024 End: 12-05-2024 Bamboo flowsheet Lexis Dumont Finn-Nossek REVERBERATORY FURNACE SUPERVISOR-CO PILOT Work Phone: [facility] Start: 12-05-2024 End: 12-05-2024 Bamboo flowsheet Lexis Dumont Finn-Nossek REVERBERATORY FURNACE SUPERVISOR-CO PILOT Work Phone: [facility] Start: 12-05-2024 End: 12-05-2024 ambulatory LEXIS Dumont FINN-NOSSEK Not Available Start: 12-05-2024 End: 12-05-2024 Office outpatient visit 40 minutes Lexis Dumont Finn-Nossek REVERBERATORY FURNACE SUPERVISOR-CO PILOT Work Phone: [facility] Comment on above: 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); Acquired buried penis Start: 11-19-2024 End: 11-19-2024 Telephone encounter Abhi Galicia MD Work Phone: Plastic Surgery Comment on above: Post Op Start: 11-18-2024 End: 11-18-2024 ambulatory Dave Kwon RN NURSE LEARNING SUPPORT SERVICES DIRECTOR Comment on above: Patient Update Start: 11-18-2024 End: 11-18-2024 Telephone encounter Mary Kate Banuelos MD Work Phone: Plastic Surgery Start: 11-14-2024 End: 11-14-2024 ambulatory SELF Facility:[facility] Start: 11-14-2024 End: 11-14-2024 ambulatory SELF Facility:[facility] Start: 11-06-2024 End: 11-08-2024 Evaluation and management of inpatient VAN BAJI Facility:[facility] Start: 10-30-2024 End: 10-30-2024 Telephone encounter Riki Long RN Urology Start: 10-23-2024 End: 10-23-2024 [facility] Start: 10-23-2024 End: 10-23-2024 [facility] Start: 10-23-2024 End: 10-23-2024 Admission to establishment Pacc Main 3 Work Phone: Pre Anesthesia Start: 10-23-2024 End: 10-23-2024 Anesthesia consultation Pacc Main 3 Work Phone: Pre Anesthesia Comment on above: Gastroesophageal ref lux disease, unspecified whether esophagitis present (Primary Dx); Type 2 diabetes mellitus with stage 4 chronic kidney disease, with long-term current use of insulin ([facility]); Morbid obesity (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); Orthostatic hypotension; CKD (chronic kidney disease) stage 4, GFR 15-29 ml/min ([facility]); Anxiety; Tardive dyskinesia; Ascending aorta dilatation Start: 10-16-2024 End: 10-16-2024 Bamboo flowsheet Lexis Keen REVERBERATORY FURNACE SUPERVISOR-CO PILOT Work Phone: [facility] Start: 10-16-2024 End: 10-16-2024 Bamboo flowsheet Lexis Keen REVERBERATORY FURNACE SUPERVISOR-CO PILOT Work Phone: [facility] Start: 10-16-2024 End: 10-16-2024 Office outpatient visit 40 minutes Lexis Keen REVERBERATORY FURNACE SUPERVISOR-CO PILOT Work Phone: [facility] Comment on above: Panic attack (Primar y Dx); BRITTANY (generalized anxiety disorder) Start: 10-16-2024 End: 10-16-2024 ambulatory LEXIS KEEN Not Available Start: 09-04-2024 End: 09-04-2024 Telephone encounter Ivanna LAW Work Phone: [facility] Start: 08-30-2024 End: 08-30-2024 ambulatory LEXIS Dumont FINNLILLI Not Available Start: 08-28-2024 End: 08-28-2024 Bamboo flowsheet Ivanna LAW Work Phone: [facility] Start: 08-28-2024 End: 08-28-2024 Bamboo flowsheet Ivanna LAW Work Phone: [facility] Start: 08-28-2024 End: 08-28-2024 Patient encounter procedure Ivanna LAW Work Phone: [facility] Comment on above: Medicare annual [facility] visit, initial (Primary Dx); ACP (advance care planning); Type 2 diabetes mellitus with diabetic neuropathic arthropathy, with long-term current use of insulin ([facility]); Primary hypertension ([facility]); Screening PSA (prostate specific antigen); Mixed hyperlipidemia ([facility]); Other problems related to lifestyle; Stage 5 chronic kidney disease ([facility]); Dysthymia ([facility]); Type 2 diabetes mellitus with diabetic polyneuropathy, with long-term current use of insulin ([facility]); Atrophy of right kidney; Bandemia; Calculus of ureter; Chronic gouty arthritis; Chest pain, unspecified type; Chronic idiopathic constipation; Coronary-myocardial bridge ([facility]/HCC); Debility; Dependent on hemodialysis ([facility]); Dizziness; Duodenal ulcer; Dyspnea on exertion; Localized edema; Emphysematous cystitis; History of anemia of chronic disease; BRITTANY (generalized anxiety disorder) ([facility]); History of hydronephrosis; Urinary tract obstruction by kidney stone; Hyponatremia; Primary insomnia; Lymphedema; [facility] (current) use of insulin ([facility]); Microalbuminuric diabetic nephropathy ([facility]); Migraine without aura, not refractory ([facility]); Orthostatic hypotension; Peripheral vascular disease ([facility]); Type 2 diabetes mellitus with hyperglycemia, with long-term current use of insulin ([facility]); Obstructive sleep apnea syndrome; Tremor; Syncope, unspecified syncope type; Panic attack ([facility]); Tardive dyskinesia; Confusion; Hyperparathyroid bone disease ([facility]); Folate deficiency; Hypokalemia; Major depressive disorder, recurrent severe without psychotic features ([facility]) ([facility]); Type 2 diabetes mellitus with other specified complication, with long-term current use of insulin; Nephrolithiasis; BPH with urinary obstruction; Type 2 diabetes mellitus with diabetic peripheral angiopathy without gangrene, with long-term current use of insulin ([facility]); Nodule of kidney; Disorder of nervous system due to type 2 diabetes mellitus ([facility]); Nephrosclerosis, stage 1 through stage 4 or unspecified chronic kidney disease; Chronic kidney disease, stage 4 (severe) ([facility]); Morbid (severe) obesity due to excess calories ([facility]); Type 2 diabetes mellitus with stage 4 chronic kidney disease, with long-term current use of insulin ([facility]); Anemia due to stage 4 chronic kidney disease ([facility]); BMI 39.0-39.9,adult; Acquired buried penis; Phimosis; Need for vaccination Start: 08-28-2024 End: 08-28-2024 ambulatory IVANNA DEAN Not Available Start: 08-09-2024 End: 08-09-2024 Bamboo flowsheet Francisco Houser MD Work Phone: [facility] Start: 08-09-2024 End: 08-09-2024 Bamboo flowsheet Frnacisco Houser MD Work Phone: [facility] Start: 08-09-2024 End: 08-09-2024 ambulatory FRANCISCO HOUSER Not Available Start: 08-09-2024 End: 08-09-2024 Office outpatient visit 25 minutes Francisco Houser MD Work Phone: [facility] Comment on above: 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) (Primary Dx); Primary hypertension ([facility]); Hyperlipemia, mixed ([facility]); Insulin long-term use ([facility]); Vitamin D deficiency; Encounter for dietary consultation; High risk medication use; Class 2 severe obesity due to excess calories with serious comorbidity and body mass index (BMI) of 39.0 to 39.9 in adult ([facility]) Start: 08-06-2024 End: 08-07-2024 Telephone encounter Riki Long RN Urology Start: 08-01-2024 End: 08-01-2024 ambulatory Sun Quach Facility:[facility] Start: 07-31-2024 End: 07-31-2024 Telephone encounter Gordo Low MD Work Phone: [facility] [address] Start: 07-18-2024 End: 07-18-2024 Patient encounter procedure Abhi Galicia MD Work Phone: Plastic Surgery Comment on above: Acquired buried peni s (Primary Dx) Start: 07-18-2024 End: 07-18-2024 ambulatory ABHI GALICIA Facility:[facility] Start: 07-10-2024 End: 07-10-2024 ambulatory NON STAFF [facility] Work Phone: Start: 07-10-2024 End: 07-10-2024 [facility] Work Phone: Start: 07-05-2024 End: 07-05-2024 ambulatory VAN GILLIS Facility:[facility] Start: 07-05-2024 End: 07-06-2024 Patient encounter procedure Van Gillis MD Work Phone: Urology Comment on above: Acquired buried peni s (Primary Dx); Erectile dysfunction of organic origin; Type 2 diabetes mellitus without complication, with long-term current use of insulin (HCC); Stage 3 chronic kidney disease, unspecified whether stage 3a or 3b CKD (HCC); Jock itch; Solitary kidney, acquired; Nephrolithiasis Jock itch (Primary D x) Start: 07-04-2024 End: 07-04-2024 Clinisync Result Encounter Generic External Data Provider [facility] External Department Unsolicited Start: 07-04-2024 End: 07-04-2024 Clinisync Result Encounter Generic External Data Provider [facility] External Department Unsolicited Start: 07-04-2024 Non-patient / Non-visit [facility] Work Phone: Start: 06-28-2024 End: 06-28-2024 Bamboo flowsheet Lexis Keen REVERBERATORY FURNACE SUPERVISOR-CO PILOT Work Phone: [facility] Start: 06-28-2024 End: 06-28-2024 Bamboo flowsheet Lexis Sinhasejayson REVERBERATORY FURNACE SUPERVISOR-CO PILOT Work Phone: [facility] Start: 06-28-2024 End: 06-28-2024 Office outpatient visit 40 minutes Lexis Mac-Stefaniasejayson REVERBERATORY FURNACE SUPERVISOR-CO PILOT Work Phone: [facility] Comment on above: Severe recurrent boogie or depression without psychotic features (HCC) ([facility]); BRITTANY (generalized anxiety disorder) ([facility]) Start: 06-28-2024 End: 06-28-2024 ambulatory LEXIS KEEN Not Available Start: 06-15-2024 End: 06-15-2024 ambulatory [facility] Facility:[facility] Start: 06-15-2024 End: 06-15-2024 Patient encounter procedure Anibal Brantley REVERBERATORY FURNACE SUPERVISOR.LINEN GRADER Work Phone: Urology Comment on above: Acquired buried peni s (Primary Dx); Encounter for screening for diabetes mellitus Start: 06-15-2024 End: 06-15-2024 [facility] Start: 06-14-2024 End: 06-14-2024 Bamboo flowsheet Gordo Low MD Work Phone: [facility] Start: 06-14-2024 End: 06-14-2024 Bamboo flowsheet Gordo Low MD Work Phone: [facility] Start: 06-14-2024 End: 06-14-2024 ambulatory GORDO LOW Not Available Start: 06-07-2024 Registered [facility] Credible Start: 05-30-2024 End: 05-30-2024 ambulatory Sun Quach Facility:[facility] Start: 05-30-2024 End: 05-30-2024 Patient encounter procedure Sun Quach [facility] Start: 05-17-2024 End: 05-17-2024 Office outpatient visit 25 minutes Lexis Keen REVERBERATORY FURNACE SUPERVISOR-CO PILOT Work Phone: [facility] Comment on above: Panic attack (CMS/HC C); Severe recurrent major depression without psychotic features (HCC) (CMS/HCC); BRITTANY (generalized anxiety disorder) (CMS/HCC) Start: 05-17-2024 End: 05-17-2024 ambulatory LEXIS KEEN Not Available Start: 05-15-2024 End: 05-15-2024 Admission to same day surgery center Sun Quach [facility] Start: 05-15-2024 End: 05-15-2024 ambulatory Sun Quach [facility] Start: 05-10-2024 End: 05-10-2024 Bamboo flowsheet Francisco Houser MD Work Phone: [facility] Start: 05-10-2024 End: 05-10-2024 Bamboo flowsheet Francisco Houser MD Work Phone: [facility] Start: 05-10-2024 End: 05-10-2024 Office outpatient visit 25 minutes Francisco Houser MD Work Phone: [facility] Comment on above: 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); Vitamin D deficiency; Encounter for dietary consultation; High risk medication use; Class 3 severe obesity due to excess calories with serious comorbidity and body mass index (BMI) of 40.0 to 44.9 in adult ([facility]) Start: 05-10-2024 End: 05-10-2024 ambulatory FRANCISCO HOUSER Not Available Start: 05-03-2024 End: 05-03-2024 ambulatory Sun Quach [facility] Start: 05-03-2024 End: 05-03-2024 Patient encounter procedure Sun Quach [facility] Start: 05-01-2024 End: 05-01-2024 ambulatory Sun Quach [facility] Start: 05-01-2024 End: 05-01-2024 Patient encounter procedure Sun Quach [facility] Start: 04-30-2024 End: 04-30-2024 Telephone encounter Lexis Keen REVERBERATORY FURNACE SUPERVISOR-CO PILOT Work Phone: [facility] Comment on above: Advice Only Start: 04-19-2024 End: 04-19-2024 Bamboo flowsheet Ivanna LAW Work Phone: [facility] Start: 04-19-2024 End: 04-19-2024 Bamboo flowsheet Ivanna LAW Work Phone: [facility] Start: 04-19-2024 End: 04-19-2024 Office outpatient visit 25 minutes Ivanna LAW Work Phone: [facility] Comment on above: Primary hypertension (CMS/HCC) (Primary Dx); Need for vaccination; Idiopathic chronic gout without tophus, unspecified site; Duodenal ulcer; Type 2 diabetes mellitus with diabetic chronic kidney disease (CMS/HCC); Chronic kidney disease, stage 4 (severe) (CMS/HCC); Type 2 diabetes mellitus with hyperglycemia (CMS/HCC); Type 2 diabetes mellitus with diabetic peripheral angiopathy without gangrene (CMS/HCC); Morbid (severe) obesity due to excess calories (CMS/HCC); Pure hyperglyceridemia (CMS/HCC); Body mass index (BMI) 39.0-39.9, adult; Type 2 diabetes mellitus with diabetic polyneuropathy (CMS/HCC); buttermaker (current) use of insulin (CMS/HCC); Type 2 diabetes mellitus with other specified complication (CMS/HCC); Mixed hyperlipidemia (CMS/HCC); Type 2 diabetes mellitus with diabetic neuropathic arthropathy (CMS/HCC); Major depressive disorder, recurrent severe without psychotic features (HCC) (CMS/HCC) Start: 04-19-2024 End: 04-19-2024 ambulatory IVANNA DEAN Not Available Start: 04-18-2024 ambulatory Sun Quach [facility] Start: 04-18-2024 End: 04-18-2024 ambulatory Sun Quach Facility:[facility] Start: 04-18-2024 End: 04-18-2024 Patient encounter procedure Sun Quach [facility] Start: 03-29-2024 End: 03-29-2024 Bamboo flowsheet Lexis Keen REVERBERATORY FURNACE SUPERVISOR-CO PILOT Work Phone: [facility] Start: 03-29-2024 End: 03-29-2024 Bamboo flowsheet Lexis Mac-Nossejayson REVERBERATORY FURNACE SUPERVISOR-CO PILOT Work Phone: [facility] Start: 03-29-2024 End: 03-29-2024 Office outpatient visit 25 minutes Lexis M Finn-Nossek REVERBERATORY FURNACE SUPERVISOR-CO PILOT Work Phone: [facility] Comment on above: BRITTANY (generalized anx iety disorder) (CMS/HCC); Severe recurrent major depression without psychotic features (HCC) (CMS/HCC) Start: 03-29-2024 End: 03-29-2024 ambulatory LEXIS Dumont FINN-NOSSEK Not Available Start: 03-13-2024 ambulatory Sun poppy Facility:[facility] Start: 02-29-2024 End: 02-29-2024 Clinisync Result Encounter Generic External Data Provider [facility] External Department Unsolicited Start: 02-29-2024 End: 02-29-2024 Clinisync Result Encounter Generic External Data Provider [facility] External Department Unsolicited Start: 02-29-2024 End: 02-29-2024 ambulatory [facility] Start: 02-23-2024 End: 02-23-2024 Bamboo flowsheet Grodo Low MD Work Phone: [facility] Start: 02-23-2024 End: 02-23-2024 Bamboo flowsheet Gordo Low MD Work Phone: [facility] Start: 02-23-2024 End: 02-23-2024 Office outpatient visit 25 minutes Gordo Low MD Work Phone: [facility] Comment on above: Tardive dyskinesia ( Primary Dx) Start: 02-23-2024 End: 02-23-2024 ambulatory GORDO LOW Not Available Start: 02-09-2024 End: 02-09-2024 Bamboo flowsheet Lexis Dumont Finn-Nossek REVERBERATORY FURNACE SUPERVISOR-CO PILOT Work Phone: [facility] Start: 02-09-2024 End: 02-09-2024 Bamboo flowsheet Lexis Dumont Finn-Nossek REVERBERATORY FURNACE SUPERVISOR-CO PILOT Work Phone: [facility] Start: 02-09-2024 End: 02-09-2024 Office outpatient visit 40 minutes Lexis Dumont Finn-Nossek REVERBERATORY FURNACE SUPERVISOR-CO PILOT Work Phone: [facility] Comment on above: Severe recurrent boogie or depression without psychotic features (HCC) (CMS/HCC); Major depressive disorder, single episode, moderate (HCC) (CMS/HCC); BRITTANY (generalized anxiety disorder) ([facility]/HCC) Start: 02-09-2024 End: 02-09-2024 ambulatory LEXIS Dumont FINN-NOSSEK Not Available Start: 01-05-2024 End: 01-05-2024 Bamboo flowsheet Francisco Houser MD Work Phone: [facility] Start: 01-05-2024 End: 01-05-2024 Bamboo [employer] [place] Che[employer] felipe Houser MD Work Phone: [facility] Start: 01-05-2024 End: 01-05-2024 ambulatory FRANCISCO HOUSER Not Available Start: 01-05-2024 End: 01-05-2024 Office outpatient visit 25 minutes Francisco Houser MD Work Phone: [facility] Comment on above: Diabetic neuropathy with neurologic complication ([facility]) (Primary Dx); Primary hypertension ([facility]); Hyperlipemia, mixed (CMS/HCC); Insulin long-term use ([facility]); Vitamin D deficiency; Encounter for dietary consultation; Class 2 severe obesity due to excess calories with serious comorbidity and body mass index (BMI) of 38.0 to 38.9 in adult ([facility]); High risk medication use Start: 12-15-2023 End: 12-15-2023 Bamboo flowsheet Lexis Dumont Finn-Nossek REVERBERATORY FURNACE SUPERVISOR-CO PILOT Work Phone: [facility] Start: 12-15-2023 End: 12-15-2023 Bamboo flowsheet Lexis Dumont Finn-Nossek REVERBERATORY FURNACE SUPERVISOR-CO PILOT Work Phone: [facility] Start: 12-15-2023 End: 12-15-2023 Office outpatient visit 40 minutes Lexis Dumont Finn-Nossek REVERBERATORY FURNACE SUPERVISOR-CO PILOT Work Phone: [facility] Comment on above: Major depressive dis order, recurrent, moderate (HCC) (CMS/HCC); Severe recurrent major depression without psychotic features (HCC) (CMS/HCC) Start: 09-07-2023 End: 09-07-2023 ambulatory NON STAFF [facility] Work Phone: Start: 09-07-2023 End: 09-07-2023 Patient encounter procedure [facility] Work Phone: Start: 09-02-2023 Non-patient / Non-visit [facility] [facility] [employer] Work Phone: Start: 08-24-2023 Registered Rec[facility]ring [facility] Credible Start: 07-19-2023 End: 07-19-2023 ambulatory [facility] Start: 05-18-2023 Chart abstracting Gordo herrera MD Work Phone: [facility] 210 Start: 05-17-2023 End: 05-25-2023 Evaluation and management of inpatient NATALIYA Stack [facility] Start: 05-17-2023 End: 05-17-2023 Office outpatient visit 40 minutes Lexis Keen REVERBERATORY FURNACE SUPERVISOR-CO PILOT Work Phone: [facility] Comment on above: Major depressive dis order, single episode, moderate (HCC) (CMS/HCC) Start: 05-17-2023 Clinisync Result Encounter Gen bessie External Data Provider [facility] External Department Unsolicited Start: 05-17-2023 Clinisync Result Encounter Gen bessie External Data Provider [facility] External Department Unsolicited Start: 02-21-2023 End: 02-22-2023 Emergency department patient visit [facility] Work Phone: Start: 02-15-2023 End: 02-15-2023 ambulatory Fani Dill Other [employer] Other Start: 02-15-2023 Telephone encounter Fani Dill [facility] Start: 02-07-2023 End: 02-13-2023 Evaluation and management of inpatient [facility] Work Phone: Start: 01-24-2023 End: 01-24-2023 ambulatory Azstephen Bakrupals Other [employer] Other Start: 01-24-2023 Telephone encounter Aziz Bakhous [facility] Start: 01-23-2023 End: 01-23-2023 Emergency department [facility] Work Phone: Start: 12-21-2022 End: 12-21-2022 ambulatory Aziz Bakhous Other [employer] Other Start: 12-21-2022 Office outpatient vi sit 25 minutes Aziz Bakhous [facility] Start: 09-08-2022 End: 09-08-2022 ambulatory AZIZ BAKHOUS [facility] Start: 09-08-2022 End: 09-08-2022 Subsequent hospital visit by physician Gillian Batista MD Work Phone: [facility] CHILD WELFARE WORKER Start: 09-03-2022 End: 09-03-2022 ambulatory Azstephen Bakhous Other [employer] Other Start: 09-03-2022 Telephone encounter Azstephen Angeleshous [facility] Start: 08-23-2022 End: 08-24-2022 ambulatory AZSTEPHEN BAKHOUS Facility:[facility] Start: 08-01-2022 End: 08-02-[address] DARION RANDLE Facility:[facility] Start: 07-26-[address] DARION RANDLE Facility: [facility] Start: 07-15-2022 End: 07-19-2022 Evaluation and management of inpatient JÚNIOR RYAN [facility] Start: 07-14-2022 End: 07-15-2022 ambulatory KENDELL RUBIO . Facility:[facility] Start: 06-30-2022 End: 07-08-2022 [facility] Start: 06-30-2022 End: 07-08-2022 Evaluation and management of inpatient Sachin Mckeon MD Work Phone: [facility] Acute Rehab Comment on above: Debility (Primary Dx ) Start: 06-20-2022 End: 06-30-2022 Evaluation and management of inpatient [facility] Start: 06-20-2022 End: 06-30-2022 Evaluation and management of inpatient Carlyle Gilmore MD Work Phone: [facility] Onc/Med Surg Start: 06-04-2022 End: 06-11-2022 Evaluation and management of inpatient [facility] Start: 06-04-2022 End: 06-11-2022 Evaluation and management of inpatient Sachin Mckeon MD Work Phone: [facility] Acute Rehab Comment on above: Stage 3a chronic kid nando disease (HCC) (Primary Dx); Type 2 diabetes mellitus with stage 3a chronic kidney disease, unspecified whether buttermaker insulin use (HCC); Physical deconditioning Start: 05-28-2022 End: 06-04-2022 Evaluation and management of inpatient STEFANI AUGUSTIN [facility] Start: 05-28-2022 End: 06-04-2022 Evaluation and management [...] HUSSEIN Facility:[facility]1 Start: 11-25-2021 End: 11-26-2021 ambulatory FRANCISCO HOUSER Facility:[facility]1 Start: 09-17-2016 End: 09-18-2016 Ambulatory DIONE GILLESPIE Facility:[facility] Procedures Date Procedure Procedure Detail Performing Clinician Start: 08-09-2024 Gluc bld gluc mntr d ev cleared fda spec home use Francisco Houser MD Work Phone: Start: 07-04-2024 [facility] URINE T PROTEIN CREAT RATIO Generic External Data Provider Start: 05-15-2024 Circumcision Sun Quach Start: 05-10-2024 Gluc bld gluc mntr d ev cleared fda spec home use Francisco Houser MD Work Phone: Start: 02-29-2024 [facility] CBC WITH PLATEL ET NO DIFFERENTIAL Generic External Data Provider Start: 01-05-2024 Gluc bld gluc mntr d ev cleared fda spec home use Francisco Houser MD Work Phone: Start: 05-17-2023 MHPT CULT,URINE Generic External Data [...] 06-24-2022 Rplcmt compl non-hernesto cvc w/o subq port/or nurse manager Angel Frazier MD Work Phone: Start: 06-24-2022 [...] Basic metabolic pane l calcium total Adrienne L Clary ROMERO Work Phone: Start: 06-22-2022 End: 06-22-2022 Ecg [...] et rgnt auto w/o microscopy Jose Raul C Sharp DO Work Phone: Start: 06-20-2022 COVID-19, [...] strip Rosales Singh MD Work Phone: Start: 1 End: 06-02-2022 Glucose blood reagent strip Rosales bowie MD Work Phone: Start: 06-02-2022 Glucose blood reagent strip Rosales Singh MD Work Phone: Start: 06-02-2022 BASIC METABOLIC PANE L W/ REFLEX TO MG FOR LOW K Yesenia Espino REVERBERATORY FURNACE SUPERVISOR - [employer] Work Phone: Start: 06-02-2022 End: 06-02-2022 Blood count complete automated Yesenia Espino REVERBERATORY FURNACE SUPERVISOR - [employer] Work Phone: Start: 06-01-2022 Glucose blood reagent [...] TO MG FOR LOW K Yesenia Espino REVERBERATORY FURNACE SUPERVISOR - [employer] Work Phone: Start: 06-01-2022 Blood count complete automated Yesenia Espino REVERBERATORY FURNACE SUPERVISOR - [employer] Work Phone: Start: 06-01-2022 Glucose blood reagent [...] TO MG FOR LOW K Yesenia Espino REVERBERATORY FURNACE SUPERVISOR - [employer] Work Phone: Start: 05-31-2022 End: 05-31-2022 Blood count complete automated Yesenia Espino REVERBERATORY FURNACE SUPERVISOR - [employer] Work Phone: Start: 05-30-2022 Glucose blood reagent [...] Stefani Augustin DO Work Phone: Start: 05-30-2022 Assay of magnesium Parminder Babb MD Work Phone: Start: 05-29-2022 Electrolyte panel Monique Triplett MD Work Phone: Start: 05-29-2022 Glucose blood reagent strip Stefani Augustin DO Work Phone: Start: 05-29-2022 Glucose blood reagent strip Stefani Augustin DO Work Phone: Start: 05-29-2022 Ecg routine ecg w/le ast 12 lds trcg only w/o i&r Yesenia Espino REVERBERATORY FURNACE SUPERVISOR - [employer] Work Phone: Start: 05-29-2022 Glucose blood reagent strip Stefani Kingshyann DO Work Phone: Start: 05-29-2022 Glucose blood reagent strip Stefani Hameedjuju DO Work Phone: Start: 05-29-2022 Hemoglobin glycosylated a1c Yesenia Espino REVERBERATORY FURNACE SUPERVISOR - [employer] Work Phone: Start: 05-29-2022 Radiologic exam ches t single view Yesenia Espino REVERBERATORY FURNACE SUPERVISOR - [employer] Work Phone: Start: 05-28-2022 Us retroperitoneal r eal time w/image complete Mirela Babb MD Work Phone: Start: 05-28-2022 End: 05-28-2022 Assay of parathormone Mane Bowie Work Phone: Start: 05-28-2022 Complement antigen e ach component Mane Triplett MD Work Phone: Start: 05-28-2022 IMMUNOFIXATION SERUM PROFILE Mane Triplett MD Work Phone: Start: 05-28-2022 Culture bacterial quanttative colony count urine Stefani Kingshyann DO Work Phone: Start: 05-28-2022 Fluoroscopy during operation Kevin Myles MD Work Phone: Start: 05-28-2022 End: 05-28-2022 Creatinine other source Yesenia Espino REVERBERATORY FURNACE SUPERVISOR - [employer] Work Phone: Start: 05-28-2022 End: 05-28-2022 CYSTOSCOPY URETERAL STENT INSERTION Kevin Myles MD Work Phone: Start: 05-28-2022 End: 05-28-2022 Culture bacterial quanttative colony count urine Yesenia Espino REVERBERATORY FURNACE SUPERVISOR - [employer] Work Phone: Start: 05-28-2022 CULTURE, BLOOD 1 Beba Gonzáles PA-C Work Phone: Start: 05-28-2022 End: 05-28-2022 Assay of magnesium Mirela Babb MD Work Phone: Start: 06-09-2018 Colonoscopy Stefani Or lop DO Work Phone: Cardiac catheterization Charley Quach Cholecystectomy Sun Quach Cystoscopy Sun Quach Open reduction of fr acture with internal fixation Sun Quach Removal of stent Sun Quach Plan of Treatment Date Care Activity Detail Author Start: 08-28-2029 Prostate specific antigen measurement Prostate Cancer Screening Discussion [facility] Start: 06-09-2028 Screening for malignant neoplasm of colon [facility] Start: 06-16-2027 Diabetes Screening Diabetes Screening [facility] Start: 05-10-2027 Diabetes Screening Diabetes Screening [facility] Start: 11-07-2025 Complete blood count Hemoglobin/Hematocrit [facility] Start: 11-07-2025 Creatinine measurement Serum Creatinine [facility] Start: 10-23-2025 Complete blood count Hemoglobin/Hematocrit [facility] Start: 10-23-2025 Creatinine measurement Serum Creatinine [facility] Start: 09-11-2025 Diabetic foot examination Diabetic Foot Exam [facility] Start: 08-28-2025 Medicare Annual Wellness (AWV) Medicare Annual Wellness (AWV) [facility] Start: 03-20-2025 End: 03-20-2025 Patient encounter procedure 03/20/2025 8:00 AM EST Office Visit [facility] [address] [place] [address] Gordo Low MD [address] [facility] [address] [place] [address] [facility] Start: 02-28-2025 Urine screening for protein Diabetes: Urine Protein Screening [facility] Start: 02-09-2025 Hemoglobin A1c measurement HbA1C [facility] Start: 01-30-2025 End: 01-30-2025 Patient encounter procedure 01/30/2025 8:30 AM EDT Office Visit [facility] [address] [facility] [address] [place] [phone] Lexis Keen, REVERBERATORY FURNACE SUPERVISOR-[employer] [address] [facility] [address] [place] [address] [facility] Start: 01-02-2025 End: 01-02-2025 Patient encounter procedure 01/02/2025 9:10 AM EDT Office Visit [facility] [address] [place] [phone] Francisco Houser MD [address] [place] [address] [facility] Start: 12-26-2024 End: 12-26-2024 Patient encounter procedure 12/26/2024 1:15 PM EDT Office Visit Plastic Surgery [address] [address] Abhi Galicia MD [address] [place] [id number] 3 week follow up Plastic Surgery Comment on above: 3 week follow up Start: 12-20-2024 End: 12-20-2024 Patient encounter procedure 12/20/2024 8:00 AM EDT Office Visit [facility] [address] [facility] [address] [place] [address] Gordo Low MD [address] [facility] [address] [id number] [facility] Start: 12-19-2024 End: 12-19-2024 Patient encounter procedure [facility] Start: 12-17-2024 End: 12-17-2024 Patient encounter procedure 12/17/2024 11:15 AM EDT Office Visit Urology [address] [address] Van Gillis MD [address] [place] [address] RESCHEDULED APPT TO 12/17/24 / COULD NOT REACH PT TO LET HIM KNOW / HIS PHONE WAS NOT WORKING Urology Comment on above: RESCHEDULED APPT TO 12/17/24 / COULD NOT REACH PT TO LET HIM KNOW / HIS PHONE WAS NOT WORKING Start: 12-11-2024 End: 12-11-2024 Patient encounter procedure [facility] Start: 12-10-2024 Influenza vaccination Influenza Vaccine (#1) [facility] Start: 12-05-2024 End: 12-05-2024 Patient encounter procedure 12/05/2024 11:00 AM EDT Office Visit [facility] [address] [facility] [address] [place] [phone] Lexis Keen, REVERBERATORY FURNACE SUPERVISOR-[facility] [address] [facility] [address] [place] [address] [facility] Start: 11-30-2024 End: 11-30-2024 Patient encounter procedure 11/30/2024 8:30 AM EDT Office Visit Plastic Surgery [address] [address] Abhi Galicia MD [address] [place] [address] follow up Plastic Surgery Comment on above: follow up Start: 11-26-2024 End: 11-26-2024 Patient encounter procedure 11/26/2024 9:30 AM EDT Office Visit Urology [address] [place] [address] Vna Gillis MD [address] [place], [place] [phone] post-buried penis exam / ok per dr gillis Urology Comment on above: post-buried penis exam / ok per dr gillis Start: 11-20-2024 End: 11-20-2024 Patient encounter procedure 11/20/2024 9:00 AM EDT Office Visit Urology [address] [address] Van Gillis MD [address] [place] [address] procedure complication follow up Urology Comment on above: procedure complication follow up Start: 11-09-2024 Hemoglobin A1c measurement Diabetes: Hemoglobin A1C [facility] Start: 11-06-2024 End: 11-06-2024 Adjnt tis trnsfr/reargmt any area 30.1-60 sq cm ADJACENT TISSUE TRANSFER / REARRANGEMENT ABDOMEN 30.1-60.0 SQCM Acquired buried penis 11/06/2024 10:22 AM EDT [facility] Start: 11-06-2024 End: 11-06-2024 Adjt tis trnsfr/reargmt defec ea addl 30 sqcm ADJACENT TISSUE TRANSFER / REARRANGEMENT ABDOMEN ADD'L < OR =30 SQCM SQCM Acquired buried penis 11/06/2024 10:22 AM EDT [facility] Start: 11-06-2024 End: 11-06-2024 Admission to same day surgery center 11/06/2024 10:22 AM EDT - 11/06/2024 3:26 PM EDT Surgery Admitting [address] [place] [address] Van Gillis MD [address] [place] [address] Excision, excessive skin and subcutaneous tissue (includes lipectomy); abdomen, infraumbilical panniculectomy Admitting Comment on above: Excision, excessive skin and subcutaneou s tissue (includes lipectomy); abdomen, infraumbilical panniculectomy Start: 11-06-2024 End: 11-06-2024 Excision skin abd infraumbilical panniculectomy PANNICULECTOMY Acquired buried penis 11/06/2024 10:22 AM EDT [facility] Start: 11-06-2024 End: 11-06-2024 Plastic rpr penis correct angulation PLASTIC OP ON PENIS TO CORRECT ANGULATION Acquired buried penis 11/06/2024 10:22 AM EDT [facility] Start: 11-06-2024 End: 11-06-2024 Scrotoplasty complicated SCROTOPLASTY COMPLICATED Acquired buried penis 11/06/2024 10:22 AM EDT [facility] Start: 11-06-2024 End: 11-06-2024 Split agrft f/s/n/h/f/g/m/d gt 1st 100 cm/1 % SPLIT-THICKNESS AUTOGRAFT MALE GENITALIA <100 SQ CM Acquired buried penis 11/06/2024 10:22 AM EDT [facility] Start: 11-06-2024 Subsequent hospital visit by physician 11/06/2024 10:22 AM EDT Hospital Encounter Admitting [address] [place] [address] Van Gillis MD [address] [place], [place] [id number] Acquired buried penis [N48.83] Admitting Comment on above: Acquired buried penis [N48.83] Start: 10-17-2024 End: 10-17-2024 Patient encounter procedure 10/17/2024 10:00 AM EDT Office Visit [facility] [address] [facility] [address] [place] [address] Lexis Keen, [facility] 112 [facility] [address] [place] [address] [facility] Start: 10-16-2024 End: 10-16-2024 Patient encounter procedure 10/16/2024 11:00 AM EDT Office Visit [facility] 112 [facility] 160 [place] [address] Lexis Keen, REVERBERATORY FURNACE SUPERVISOR-[employer] 112 [facility] 160 [place] [address] [facility] Comment on above: Arrived Start: 09-15-2024 Hemoglobin A1c measurement Diabetes: Hemoglobin A1C [facility] Start: 08-30-2024 End: 08-30-2024 Patient encounter procedure 08/30/2024 11:00 AM EDT Office Visit [facility] [address] [place] [address] Lexis Keen, REVERBERATORY FURNACE SUPERVISOR[facility] [address] [place] [address] [facility] Start: 08-28-2024 End: 08-28-2024 Patient encounter procedure 08/28/2024 1:00 PM EDT Office Visit [facility] [address] [place] [address] Ivanna Dean, PA [address] [place] [address] Arrived [facility] Comment on above: Arrived Start: 08-09-2024 End: 08-09-2024 Patient encounter procedure 08/09/2024 9:30 AM EDT Office Visit [facility] [address] [facility] [address] [place] [address] Francisco Houser MD [address] [place] [address] [facility] Start: 08-08-2024 Hemoglobin A1c measurement Diabetes: Hemoglobin A1C [facility] Start: 07-19-2024 End: 07-19-2024 Patient encounter procedure 07/19/2024 1:00 PM EDT Office Visit [facility] [address] [place] [address] Ivanna Dean PA [address] [place] [address] [facility] Start: 07-18-2024 End: 07-18-2024 Patient encounter procedure 07/18/2024 1:00 PM EDT Office Visit Plastic Surgery [address] [place] [phone] Abhi Galicia MD [address] [place] [address] consult per provider Plastic Surgery Comment on above: consult per provider Start: 07-05-2024 End: 07-05-2024 ambulatory 07/05/2024 8:20 AM EDT [facility] Urology [address] [place] [address] Van Gillis MD [address] [facility] [place] [address] vv per checkout Urology Comment on above: vv per checkout Start: 06-28-2024 End: 06-28-2024 Patient encounter procedure [facility] Comment on above: Arrived Start: 06-15-2024 End: 09-14-2024 Hemoglobin A1c in Blood [facility] Work Phone: Comment on above: Expected: 06/15/2024, Expires: Start: 06-14-2024 End: 06-14-2024 Patient encounter procedure [facility] Comment on above: Arrived Start: 05-17-2024 End: 05-17-2024 Patient encounter procedure 05/17/2024 9:00 AM EST Office Visit [facility] [address] [facility] [address] [place] [address] Lexis Keen, REVERBERATORY FURNACE SUPERVISOR-[facility] [address] [facility] [address] [place] [address] [facility] Start: 05-10-2024 End: 05-10-2024 Patient encounter procedure [facility] Comment on above: Arrived Start: 04-19-2024 End: 04-19-2024 Patient encounter procedure 04/19/2024 2:00 PM EST Office Visit [facility] [address] [facility] [address] [place] [address] Ivanna Dean, PA [address] [place] [address] Arrived [facility] Comment on above: Arrived Start: 04-05-2024 Hemoglobin A1c measurement Diabetes: Hemoglobin A1C [facility] Start: 03-29-2024 End: 03-29-2024 Patient encounter procedure [facility] Comment on above: Arrived Start: 02-23-2024 End: 02-23-2024 Patient encounter procedure 02/23/2024 8:20 AM EST Office Visit [facility] [address] [place] [phone] Gordo Low MD [address] [address] [facility] Start: 02-10-2024 Medicare Annual Wellness Visit Medicare Annual Wellness Visit [facility] Start: 02-09-2024 End: 02-09-2024 Patient encounter procedure [facility] Comment on above: Arrived Start: 01-05-2024 End: 01-05-2024 Patient encounter procedure 01/05/2024 9:10 AM EDT Office Visit [facility] [address] [place] [address] Francisco Houser MD [address] [place] [address] [facility] Start: 12-15-2023 End: 12-15-2023 Patient encounter procedure 12/15/2023 1:00 PM EDT Office Visit [facility] [address] [facility] [address] [place] [address] Lexis Keen, REVERBERATORY FURNACE SUPERVISOR-[employer] [address] [facility] [address] [place] [address] Arrived [facility] Comment on above: Arrived Start: 12-11-2023 Covid-19 Vaccine ( season) Covid-19 Vaccine ( season) [facility] Start: 12-11-2023 Influenza vaccination Influenza Vaccine (#1) [facility] Start: 12-07-2023 Medicare Annual Wellness (AWV) Medicare Annual Wellness (AWV) [facility] Start: 08-24-2023 Urine screening for protein Diabetes: Urine Protein Screening [facility] Start: 07-20-2023 Hemoglobin A1c measurement A1C test (Diabetic or Prediabetic) [facility] [employer] Start: 06-16-2023 End: 06-16-2023 Patient encounter procedure 06/16/2023 2:00 PM EST Office Visit [facility] [address] [facility] [address] [place] [address] Lexis Keen, REVERBERATORY FURNACE SUPERVISOR-[facility] [address] [facility] [address] [place] [address] [facility] Start: 06-11-2023 GFR test (Diabetes, CKD 3-4, OR last GFR 15-59) GFR test (Diabetes, CKD 3-4, OR last GFR 15-59) [facility] [employer] [facility] Start: 06-04-2023 GFR test (Diabetes, CKD 3-4, OR last GFR 15-59) GFR test (Diabetes, CKD 3-4, OR last GFR 15-59) [facility] [employer] Start: 05-30-2023 Hemoglobin A1c measurement [facility] [employer] Start: 05-19-2023 End: 05-19-2023 Patient encounter procedure 05/19/2023 8:00 AM EST Office Visit [facility] [address] [facility] [address] [place] [address] Gordo Low MD [address] [facility] [address] [address] [facility] Start: 03-03-2023 Hemoglobin A1c measurement Diabetes: Hemoglobin A1C [facility] Start: 02-22-2023 Bacteria identified in Urine by Culture Urine Culture [facility] Start: 02-22-2023 CT Abdomen and Pelvis WO contrast [facility] Start: 02-22-2023 CT of abdomen and pelvis without contrast CT abdomen pelvis wo con [facility] Start: 02-13-2023 [facility] Start: 02-07-[address] [facility] Start: 02-07-2023 Bacteria identified in Urine by Culture [facility] Start: 11-09-2022 Influenza vaccination Flu vaccine (Season Ended) [facility] Start: 08-30-2022 End: 08-30-2022 Patient encounter procedure 08/30/2022 Office Visit Physical Medicine and Rehab Marcus Yepez MD [address] [place] [address] [facility] Start: 08-30-2022 End: 08-30-2022 ambulatory [facility] Start: 08-19-2022 End: 08-19-2022 ambulatory [facility] Start: 08-19-2022 End: 08-19-2022 Patient encounter procedure 08/19/2022 Office Visit Urology Kevin Myles MD [address] [facility], [address] [place], [place] [id number] [facility] Start: 08-09-2022 End: 08-09-2022 ambulatory [facility] Start: 08-09-2022 End: 08-09-2022 Patient encounter procedure 08/09/2022 Office Visit Neurology Kayli Preciado MD [address] [place] [id number] [facility] Start: 08-03-2022 End: 08-03-2022 ambulatory [facility] Start: 08-03-2022 End: 08-03-2022 Patient encounter procedure 08/03/2022 Office Visit Nephrology Mane Triplett MD [address] [facility], [place] [address] [facility] Start: 06-15-2022 End: 06-15-2022 Admission to same day surgery center 06/15/2022 Surgery IP Unit Kevin Myles MD [address] [facility], [address] [place] [address] HOLMIUM, CYSTOSCOPY, URETEROSCOPY, STENT EXCHANGE [facility] Comment on above: HOLMIUM, CYSTOSCOPY, URETEROSCOPY, STENT EXCHANGE Start: 06-15-2022 End: 06-15-2022 Cysto/uretero w/lithotripsy &indwell stent insrt URETEROSCOPY STONE REMOVAL LASER Ureteral stone 06/15/2022 8:00 AM [facility] Start: 06-15-2022 Subsequent hospital visit by physician 06/15/2022 Hospital Encounter IP Unit Kevin Myles MD [address] [facility], [address] [place] [address] [facility] Start: 06-14-2022 End: 06-10-2023 Basic metabolic 2000 panel - Serum or Plasma Basic Metabolic Panel Lab Routine Type 2 diabetes mellitus with stage 3a chronic kidney disease, unspecified whether group home insulin use (HCC) Expected: 06/14/2022, Expires: 06/10/2023 [facility] Work Phone: Comment on above: Expected: 06/14/2022, Expires: Start: 2022 RSV Vaccine (1 - Risk 60-74 years 1-dose series) RSV Vaccine (1 - Risk 60-74 years 1-dose series) [facility] Start: 11-09-2021 Influenza vaccination Flu vaccine (#1) [facility] Start: 11-09-2021 [facility] Start: 10-30-2020 COVID-19 Vaccine (2 - Booster for [place] series) COVID-19 Vaccine (2 - Booster for [place] series) [facility] Start: 10-30-2020 [facility] Start: 05-19-2020 Glaucoma screening Diabetes: Retinopathy Screening [facility] Start: 06-10-2019 Screening for malignant neoplasm of colon [facility] Start: 10-11-2017 Prostate specific antigen measurement Prostate Cancer Screening Discussion [facility] Start: 01-20-2012 Pneumococcal Vaccine: 50+ (1 of 1 - PCV) Pneumococcal Vaccine: 50+ (1 of 1 - PCV) [facility] Start: 01-20-2012 Shingles vaccine (1 of 2) Shingles vaccine (1 of 2) [facility] [employer] Start: 01-20-2012 Shingrix Vaccine (1 of 2) Shingrix Vaccine (1 of 2) [facility] Start: 01-20-2012 [facility] Start: 2007 Prostate specific antigen measurement Prostate Cancer Screening Discussion [facility] Start: 2007 Screening for malignant neoplasm of colon [facility] [employer] Start: 1997 Lipid panel Lipid Screening [facility] Start: 1982 Hepatitis B vaccine (1 of 3 - Risk Dialysis 4-dose series) Hepatitis B vaccine (1 of 3 - Risk Dialysis 4-dose series) [facility] [employer] Start: 1982 [facility] Start: 1981 DTaP/Tdap/Td vaccine (1 - Tdap) DTaP/Tdap/Td vaccine (1 - Tdap) [facility] [employer] Start: 1981 Pneumococcal Vaccine: 50+ (1 of 2 - PCV) Pneumococcal Vaccine: 50+ (1 of 2 - PCV) [facility] Start: 1981 Shingles vaccine (1 of 2) Shingles vaccine (1 of 2) [facility] [employer] Start: 1981 Urine microalbumin profile DTaP,Tdap,Td Vaccine (1 - Tdap) [facility] Start: 1981 [facility] [employer] [facility] Start: 01-20-1980 Annual PCP Team Chronic Disease Visit Annual PCP Team Chronic Disease Visit [facility] Start: 01-20-1980 Anxiety Screening Anxiety Screening [facility] Start: 01-20-1980 Depression Screening Depression Screening [facility] Start: 01-20-1980 Glaucoma screening [facility] [employer] Start: 01-20-1980 Hepatitis B surface antibody level LDL Cholesterol [facility] Start: 01-20-1980 Hepatitis C screening [facility] [employer] Start: 01-20-1980 HIV screening HIV Screening [facility] Start: 01-20-1980 Urine screening for protein Diabetic Alb to Cr ratio (uACR) test [facility] [employer] Start: 1977 [facility] Start: 1974 Depression Monitoring Depression Monitoring [facility] Start: 1974 Depression Screen Depression Screen [facility] Start: 1974 [facility] Start: 01-20-1972 Diabetic foot examination [facility] Start: 01-20-1972 Glaucoma screening Dilated Retinal Exam [facility] Start: 01-20-1972 Hepatitis B screening Urine Albumin:Creatinine Ratio [facility] Start: 01-20-1972 [facility]: [facility]1968 Pneumococcal 0-64 years Vaccine (1 - PCV) Pneumococcal 0-64 years Vaccine (1 - PCV) [facility] Start: 01-20-1968 [facility] Start: 1960 Screening for malignant neoplasm of colon [facility] Adult NIV/Positive Airway Pressure [employer]let Phone: Adult NIV/Positive Airway Pressure Adult NIV/Positive Airway Pressure Respiratory Care Routine Every 4hr until discontinued starting 06/30/2022 [employer]let Phone: Comment on above: Every 4hr until discontinued starting Bacteria identified in Urine by Culture [facility] End: 07-01-2022 Basic metabolic 2000 panel - Serum or Plasma Basic Metabolic Panel Lab Routine Acute renal failure with acute cortical necrosis (HCC) Once a week for 3 Occurrences starting 06/03/2022 until 07/01/2022 [employer]let Phone: Comment on above: Once a week for 3 Occurrences starting 0 06/03/2022 until 07/01/2022 End: 07-22-2022 Basic Metabolic Panel w/ Reflex to MG Basic Metabolic Panel w/ Reflex to MG Lab Routine Weekly for 4 Occurrences starting 07/01/2022 until 07/22/2022, 2 completed e[employer]let Phone: Comment on above: Weekly for 4 Occurrences starting 2022 until 07/22/2022, 2 completed End: 07-27-2022 Basic Metabolic Panel w/ Reflex to MG Basic Metabolic Panel w/ Reflex to MG Lab Routine Weekly for 4 Occurrences starting 07/06/2022 until 07/27/2022, 1 completed e[employer]let Phone: Comment on above: Weekly for 4 Occurrences starting 2022 until 07/27/2022, 1 completed End: 07-31-2022 Basic Metabolic Panel w/ Reflex to MG Basic Metabolic Panel w/ Reflex to MG Lab Routine Weekly for 4 Occurrences starting 07/10/2022 until 07/31/2022 eCullet Phone: Comment on above: Weekly for 4 Occurrences starting 2022 until 07/31/2022 End: 07-22-2022 CBC W Auto Differential panel - Blood CBC auto differential Lab Routine Weekly for 4 Occurrences starting 07/01/2022 until 07/22/2022, 2 completed e[employer] Phone: Comment on above: Weekly for 4 Occurrences starting 2022 until 07/22/2022, 2 completed Continuous pulse oximetry Pulse oximetry, continuous Respiratory Care Routine Every 4hr until discontinued starting 05/29/2022 [employer]let Phone: Comment on above: Every 4hr until discontinued starting Continuous pulse oximetry Pulse oximetry, continuous Respiratory Care Routine Every 4hr until discontinued starting 06/30/2022 [employer] Phone: Comment on above: Every 4hr until discontinued starting Glucose [Mass/volume ] in Serum or Plasma [employer] Phone: Comment on above: 4X Daily (AC & HS) until discontinued st arting 05/29/2022 As Needed until disc ontinued starting 05/29/2022 Glucose [Mass/volume ] in Serum or Plasma [employer] Phone: Comment on above: 4X Daily (AC & HS) until discontinued st arting 06/04/2022 As Needed until disc ontinued starting 06/04/2022 Glucose [Mass/volume ] in Serum or Plasma [employer] Phone: Glucose [Mass/volume ] in Serum or Plasma [employer] Phone: Comment on above: 4X Daily (AC & HS) until discontinued st arting 06/30/2022 As Needed until disc ontinued starting 06/30/2022 End: 06-28-2022 Hemodialysis e[employer] Phone: Hemodialysis Hemodialysis Radha lysis Routine Once per day on Tue Sat until discontinued starting 07/03/2022 eCullet Phone: Comment on above: Once per day on Tue Sat until discon tinued starting 07/03/2022 End: 06-24-2022 Hemodialysis inpatient [employer] Phone: End: 06-25-2022 Hemodialysis inpatient [employer] Phone: End: 06-29-2022 Hemodialysis inpatient [employer] Phone: HEPATITIS C AB W/RFL RNS, PCR W/RFL GENOTYPE,LIPA HEPATITIS C AB W/RFL RNS, PCR W/RFL GENOTYPE,LIPA Lab Routine Medicare annual wellness visit, initial Other problems related to lifestyle Ordered: 08/28/2024 [facility] Comment on above: Ordered: 08/28/2024 Home BIPAP or CPAP Home BIPAP or CPAP Respiratory Care Routine Daily until discontinued starting 05/31/2022 eC[employer]let Phone: Comment on above: Daily until discontinued starting 2022 Home BIPAP or CPAP Home BIPAP or CPAP Respiratory Care Routine Daily until discontinued starting 06/05/2022 e[employer]ullet Phone: Comment on above: Daily until discontinued starting 2022 End: 05-28-2022 Insert/Change Carballo Catheter Insert/Change Carballo Catheter Procedure STAT One Time for 1 Occurrences starting 05/28/2022 until 05/28/2022 eCullet Phone: Comment on above: One Time for 1 Occurrences starting 05/12 until 05/28/2022 Intermittent pulse oximetry Pulse Oximetry Spot Check Respiratory Care Routine As Needed until discontinued starting 05/28/2022 eCullet Phone: Comment on above: As Needed until discontinued starting Intermittent pulse oximetry Pulse Oximetry Spot Check Respiratory Care Routine As Needed until discontinued starting 06/04/2022 eCullet Phone: Comment on above: As Needed until discontinued starting End: 06-20-2022 Intermittent pulse oximetry e[employer]let Phone: Intermittent pulse oximetry Pulse Oximetry Spot Check Respiratory Care Routine As Needed until discontinued starting 06/30/2022 eCullet Phone: Comment on above: As Needed until discontinued starting End: 07-02-2022 Intermittent pulse oximetry Pulse Oximetry Spot Check Respiratory Care Routine One Time for 1 Occurrences starting 07/02/2022 until 07/02/2022 eCullet Phone: Comment on above: One Time for 1 Occurrences starting 06/10 until 07/02/2022 End: 09-08-2022 IR REMOVE TUNNELED CVAD WO SQ PORT/PUMP IR REMOVE TUNNELED CVAD WO SQ PORT/PUMP Imaging Routine Once for 1 Occurrences starting 09/08/2022 until 09/08/2022 eCullet Phone: Comment on above: Once for 1 Occurrences starting 09/09/19 until 09/08/2022 Lipid 1996 panel - Serum or Plasma Lipid panel Lab Routine Medicare annual wellness visit, initial Type 2 diabetes mellitus with diabetic neuropathic arthropathy, with long-term current use of insulin (CMS/HCC) Mixed hyperlipidemia (CMS/HCC) Ordered: 08/28/2024 [employer] Work Phone: Comment on above: Ordered: 08/28/2024 Nasal Cannula Oxygen Nasal Cannu la Oxygen Respiratory Care Routine Daily until discontinued starting 05/29/2022 eCullet Phone: Comment on above: Daily until discontinued starting 2022 Nasal Cannula oxygen Nasal Cannu la oxygen Respiratory Care Routine As Needed until discontinued starting 06/04/2022 eCullet Phone: Comment on above: As Needed until discontinued starting Nasal Cannula oxygen Nasal Cannu la oxygen Respiratory Care Routine Daily until discontinued starting 06/30/2022 eCullet Phone: Comment on above: Daily until discontinued starting 2022 Oxygen therapy [Mini mum Data Set] Initiate Oxygen Therapy Protocol Respiratory Care Routine As Needed until discontinued starting 05/28/2022 eCullet Phone: Comment on above: As Needed until discontinued starting Oxygen therapy [Mini mum Data Set] eCullet Phone: Comment on above: As Needed until discontinued starting Daily until disconti nued starting 06/04/2022 Oxygen therapy [Mini mum Data Set] eCullet Phone: Oxygen therapy [Mini mum Data Set] Initiate Oxygen Therapy Protocol Respiratory Care Routine Daily until discontinued starting 06/30/2022 eCullet Phone: Comment on above: Daily until discontinued starting 2022 Oxygen therapy [Mini mum Data Set] Initiate Oxygen Therapy Protocol Respiratory Care Routine As Needed until discontinued starting 07/02/2022 eCullet Phone: Comment on above: As Needed until discontinued starting Patient Education [facility] Work Phone: Patient referral [facility] Work Phone: End: 06-29-2022 POCT POTASSIUM eCullet Phone: End: 06-30-2022 POCT POTASSIUM POCT POTASSIUM Point of Care Testing Routine One Time for 1 Occurrences starting 06/30/2022 until 06/30/2022 [employer] Work Phone: Comment on above: One Time for 1 Occurrences starting 06/10 until 06/30/2022 Prostate specific Ag [Mass/volume] in Serum or Plasma PSA Lab Routine Medicare annual wellness visit, initial Screening PSA (prostate specific antigen) Ordered: 08/28/2024 [facility] Comment on above: Ordered: 08/28/2024 Renal function 2000 panel - Serum or Plasma [facility] Renal function 2000 panel - Serum or Plasma [facility] Spirometry panel Incentive adrianna metry Respiratory Care Routine As Needed until discontinued starting 06/04/2022 [employer] Work Phone: Comment on above: As Needed until discontinued starting Spirometry panel Incentive adrianna metry Respiratory Care Routine As Needed until discontinued starting 06/30/2022 [employer] Work Phone: Comment on above: As Needed until discontinued starting [employer] Work Phone: [facility] Immunizations Immunization Date Immunization Notes Care Provider Sarahi shea 08-28-2024 zoster vaccine-recombinant adjuvanted (Shingrix) 50 MCG/0.5ML vaccine Ivanna LAW Work Phone: [facility] 04-25-2024 influenza, unspecifi ed formulation Sun Quach [facility] 04-19-2024 influenza virus vaccine, unspecified formulation Sun Quach [facility] 04-19-2024 influenza, injectabl e, quadrivalent, preservative free Ivanna LAW Work Phone: [facility] 02-09-2023 influenza, injectabl e, quadrivalent, preservative free [facility] 02-09-2023 influenza virus vaccine, unspecified formulation Lexis Keen [employer] Work Phone: [facility] 08-13-2022 hepatitis B vaccine, dialysis patient dosage Francisco Houser MD Work Phone: [facility] 07-21-2022 hepatitis B vaccine, dialysis patient dosage Francisco Houser MD Work Phone: [facility] 09-04-2020 SARS-CoV-2 (COVID-19 ) Ad26 vaccine, recombinant Sun Lue [facility] Comment on above: Result Comment: 2024: --SELECT TARGET POPULATION/OCCUPATION-- Payers Date Payer Category Payer Unknown [id number] 2024 Medicare [id number] 2024 Medicare [id number] 2022 Blue Cross Blue Shield [id number] 2022 Unknown BCBS BCBS [id number] 2022-Present [phone] [address] [place] [address] [id number]. [id number] 2022 Blue Cross Blue Shield [id number] 2022 Self-pay 2022 Medicaid [id number] [id number]. [id number] 1962 Unknown [id number] 2.16.840.1.253010.3.579.2.17 5 1962 Unknown [id number] 2.16.840.1.369404.3.579.2.17 5 1962 Unknown [id number] 2.16.840.1.337020.3.579.2.17 5 1962 Unknown [id number] 2.16.840.1.448452.3.579.2.59 3 1962 Unknown [id number] 2.16.840.1.247482.3.579.2.59 3 1962 Unknown [id number] 2.16.840.1.193150.3.579.2.59 3 1962 Unknown [id number] 2.16.840.1.272321.3.579.2.59 3 1962 Unknown [id number] 2.16.840.1.407922.3.579.2.59 3 1962 Unknown [id number] 2.16.840.1.296100.3.579.2.59 3 1962 Unknown [id number] 2.16.840.1.571498.3.579.2.59 3 1962 Unknown [id number] 2.16.840.1.098397.3.579.2.59 3 1962 Unknown [id number] 2.16.840.1.926491.3.579.2.59 3 1962 Unknown [id number] 2.16.840.1.745203.3.579.2.59 3 1962 Unknown [id number] 2.16.840.1.019050.3.579.2.59 3 1962 Unknown [id number] 2.16.840.1.928251.3.579.2.17 3 1962 Unknown [id number] 2.16.840.1.184876.3.579.2.17 6 1962 Unknown [id number] 2.16.840.1.443768.3.579.2.17 6 1962 Unknown [id number] 2.16.840.1.986653.3.579.2.17 6 1962 Unknown [id number] 2.16.840.1.109533.3.579.2.72 7 1962 Unknown [id number] 2.16.840.1.567441.3.579.2.72 7 1962 Unknown [id number] 2.16.840.1.831845.3.579.2.72 7 1962 Unknown [id number] 2.16.840.1.037078.3.579.2.72 7 1962 Unknown [id number] 2.16.840.1.396894.3.579.2.72 7 1962 Unknown [id number] 2.16.840.1.898735.3.579.2.72 7 1962 Unknown [id number] 2.16.840.1.848864.3.579.2.72 7 1962 Unknown [id number] 2.16.840.1.080329.3.579.2.72 7 1962 Unknown [id number] 2.16.840.1.851173.3.579.2.72 7 1962 Unknown [id number] 2.16.840.1.641392.3.579.2.12 59 1962 Unknown [id number] 2.16.840.1.098410.3.579.2.12 59 1962 Unknown [id number] 2.16.840.1.859438.3.579.2.12 59 1962 Unknown [id number] 2.16.840.1.870245.3.579.2.12 59 1962 Unknown [id number] 2.16.840.1.640882.3.579.2.12 59 1962 Unknown [id number] 2.16.840.1.653316.3.579.2.12 59 1962 Unknown [id number] 2.16.840.1.503604.3.579.2.12 59 1962 Unknown [id number] 2.16.840.1.661523.3.579.2.12 59 1962 Unknown [id number] 2.16.840.1.965657.3.579.2.12 59 1962 Unknown [id number] 2.16.840.1.824633.3.579.2.12 59 1962 Unknown [id number] 2.16.840.1.718182.3.579.2.12 59 1962 Unknown [id number] 2.16.840.1.069905.3.579.2.12 59 1962 Unknown [id number] 2.16.840.1.914623.3.579.2.12 59 1962 Unknown [id number] 2.16.840.1.566769.3.579.2.12 59 1962 Unknown [id number] 2.16.840.1.122777.3.579.2.12 59 1959 Unknown [id number] Unknown [id number] Unknown [id number] 2.16.840.1.782947.3.579.2.53 1 Social History Date Type Detail Facility Start: 05-29-2022 End: 08-31-2022 Tobacco smoking status [facility] Never smoked tobacco [employer] Start: 05-29-2022 End: 08-31-2022 Tobacco use and exposure Smokeless tobacco non-user e[employer] Phone: Start: 05-31-2022 End: 11-14-2024 Alcohol intake Current drinker of alcohol (finding) [employer] Phone: Start: 05-28-2022 History SDOH Alcohol Frequency 2 e[employer]let Phone: Start: 05-29-2022 Alcohol Comment less than 6 beers annually eC[employer]let Phone: Start: 1960 Sex Assigned At Not on file eCullet Phone: Start: 05-18-2022 End: 07-02-2022 Exposure to SARS-CoV-2 (event) Not sure eC[employer]let Phone: Start: 01-04-2023 End: 12-05-2024 Sex Assigned At [employer] Other Start: 1960 Sex Assigned At Male [facility] Start: 05-17-2023 End: 12-19-2024 Alcohol intake Ex-drinker (finding) [facility] Start: 01-04-2023 End: 12-05-2024 History of Social function [facility] Within [...] to buy more. Never true [facility] Start: 06-12-2024 In the past 12 months, has lack of transportation kept you from medical appointments or from getting medications? No [facility] Start: 04-18-2023 Alcohol Comment no caffiene; Caffeine Intake: More than 4 cups per day soda [facility] Start: 08-31-2022 Gender identity Identifies as male gender (finding) [facility] Start: 08-31-2022 Sexual orientation Choose not to disclose [facility] Start: 08-18-2023 Alcohol Comment no caffiene; [facility] Start: 02-09-2024 Education 16 [facility] Tobacco smoking stat us NHIS Tobacco smoking consumption unknown [facility] Start: 07-10-2024 Sex Male (finding) [facility] How often do you nee d to have someone help you when you read instructions, pamphlets, or other written material from your doctor or pharmacy [SILS] Rarely [facility] History of tobacco use Passive smoker [facility] Start: 10-23-2024 Alcohol Comment rare [facility] Medical Equipment Procedure Code Equipment Code Equipment Origin al Text Equipment Identifier Dates [id number] Start: 05-28-2022 [id number] Start: 06-29-2022 [id number] Start: 07-07-2022 USE DIRECTED THREE TIMES A DAY [id number] Start: 07-07-2022 OneTouch Verio t est strip [id number] Start: 03-15-2023 1 (one) time eac h day. [id number] Start: 07-08-2022 Inject under the skin 2 (two) times a day [id number] Start: 05-18-2023 USE DIRECTED UNDER THE SKIN TWICE DAILY [id number] Start: 07-20-2024 USE TO TEST 3 TI MES A DAY [id number] Start: 08-21-2024 Goals Date Patient Goal Desired Activity /State Functional Status Date Assessment Result Facility 12-05-2024 Patient Health Quest ionnaire 2 item (PHQ-2) [Reported] [facility] 12-05-2024 PHQ-9 quick depressi on assessment panel [Reported.PHQ] [facility] 08-28-2024 Patient Health Quest ionnaire 2 item (PHQ-2) [Reported] [facility] 05-30-2024 Functional Status N/A [facility] 05-03-2024 Functional Status No [facility] 04-18-2024 Functional Status N/A [facility] 02-13-2023 Functional status Patient at Baseline [facility] Work Phone: [facility] Mental Status Date Assessment Result Facility 02-13-2023 Cognitive function Cognitive Sta tus Patient at Baseline [facility] Work Phone: Clinical Notes 06-04-2022 to 12-19-2024 Gordo Low MD - 12/19/2024 8:20 AM EDVan Quezada MD - 12/17/2024 11:12 AM EDTTelephone Encounter - Mamadou Carmen - 12/06/2024 11:52 AM EDTPAbhi westfall MD - 11/30/2024 8:30 AM EDT Note Date & Type Note Facility 12-19-2024 History of Present illness Narrative Images from the original note were not included. CHIEF COMPLAINT REASON FOR VISIT : Patient here for a follow up for tardive dyskinesia. He has had more shakiness in his left hand. Patients spouse is concerned that the Ingrezza cannot be increased to due only having 33% kidney function. Subjective Steven Walden is a 64 y.o. male who presents for Tardive dyskinesia History of Present Illness The patient is a 64-year-old male with tardive dyskinesia who presents for evaluation of hand tremors. Over the past few months, he has noticed an increase in hand tremors, particularly when trying to sleep at night. These tremors are characterized by constant, moving, tapping, and writhing movements, which he can temporarily control by hyper-focusing on [...] He is currently taking Ingrezza 60 mg and may need a refill soon. He has stage [...] equal, round, and reactive to light and accommodation, both directly and consensually. Visual skaggs were full [...] in all four extremities, including at least screed operator, finger abductors, biceps, triceps, deltoid, toe flexors [...] and spasticity are not evident. Arm swing is normal. Toe, heel, and tandem walking are performed [...] prescription for amantadine will be sent to [facility] pharmacy. A refill for Ingrezza will be provided through [facility]. 2. Stage 4 kidney disease. He [...] medications. This clinical note was created utilizing [facility] documentation system. All information has been thoroughly reviewed, corrected as necessary, and authenticated by the provider to ensure accuracy and completeness. On occasion, [employer] documentation system erroneously drops words or replaces a spoken word with a similar sounding word. Please notify with any questions or concerns regarding this clinical note. documented in this encounter [facility] 12-17-2024 Note HNO ID: [id number] Author: VAN GILLIS MD Service: ? Author Type: Physician Type: Progress Notes Filed: 12/17/2024 11:16 Note Text: POST OP CHECK Doing well No pain Did 2 weeks self dilation with clobetasol Panniculectomy well healed Graft looks good, healing well Junction of graft and base of penis left sill with small open area, and ventrally at frenulum but both with good granulation tissue Scrotal incision well healed Meatus is patent but small Will see him in about 6 weeks Van Gillis MD Director, [facility] Staff, [facility] 12-17-2024 History of Present illness Narrative POST OP CHECK Doing well No pain Did 2 weeks self dilation with clobetasol Panniculectomy well healed Graft looks good, healing well Junction of graft and base of penis left sill with small open area, and ventrally at frenulum but both with good granulation tissue Scrotal incision well healed Meatus is patent but small Will see him in about 6 weeks Van Gillis MD Director, [facility] Staff, [facility] documented in this encounter [facility] 12-06-2024 Telephone encounter Note Pt was off trulicity for 3 weeks due to surgical procedure. Would like to know if he can just start right back or if he should go on a lower dose for a short amount of time. Please advise. Thank you! [facility] 12-06-2024 Miscellaneous Notes Pt was off trulicity for 3 weeks due to surgical procedure. Would like to know if he can just start right back or if he should go on a lower dose for a short amount of time. Please advise. Thank you! documented in this encounter [facility] 11-30-2024 History of Present illness Narrative Images from the original note were not included. Plastic Surgery Follow Up CC: Post op HPI: Steven is here for initial post op appointment following surgery. Patient had Split-thickness skin grafting shaft of the penis performed 11/06/2024 Time post op: 3 weeks Denies fevers, chills, erythema, induration, fluctuance, hematoma, seroma, purulent drainage, odor. He was having trouble urinating and followed up with Dr. Gillis on 11/20/24. He underwent meatal dilation and was prescribed clobetasol to apply to the area to prevent urethral closure. Patient reports he is using handheld urinal to urinate. His spouse uses a saline wound wash to cleanse the area if the dressing gets saturated with urine. He denies pain today, reports infrequent use of pain medications and is taking Tylenol as needed for pain. Surgical pathology/cultures: FINAL DIAGNOSIS A. Skin, penis, biopsy: - Scar-like tissue with minor chronic inflammation. - Negative for neoplasm. B. Skin, escutcheon, escutcheonectomy: - Benign skin and subcutaneous tissue with minor fibrosis. REVIEW OF SYSTEMS GENERAL: No weight loss, malaise or fevers SKIN: See HPI PMH: PAST MEDICAL HISTORY Diagnosis Date Anxiety 10/23/2024 Ascending aorta dilatation 10/23/2024 CKD (chronic kidney disease) stage 4, GFR 15-29 ml/min ([facility]) 10/23/2024 GERD (gastroesophageal reflux disease) 10/23/2024 Morbid obesity (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) 10/23/2024 PSH: PAST SURGICAL HISTORY Procedure Laterality Date PAST SURGICAL HISTORY OF 2011 cholecystectomy PAST SURGICAL HISTORY OF hand surgery PAST SURGICAL HISTORY OF circumcision MEDICATIONS: PAST MEDICAL HISTORY Diagnosis Date Anxiety 10/23/2024 Ascending aorta dilatation 10/23/2024 CKD (chronic kidney disease) stage 4, GFR 15-29 ml/min ([facility]) 10/23/2024 GERD (gastroesophageal reflux disease) 10/23/2024 Morbid obesity (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) 10/23/2024 PHYSICAL EXAM: BP 118/81 Pulse 67 Temp 36.3 C (97.4 F) (Temporal) GENERAL: Patient is a well-nourished , appearing stated age, resting comfortably, breathing regularly. No acute distress. WOUND: shaft of penis skin graft with good take, small sore area at tip of penis, right thigh donor site mostly healed with some small open areas ASSESSMENT/PLAN: Patient is 3 weeks s/p Split-thickness skin grafting shaft of the penis performed on 11/06/24 Expected post-operative course, 100% skin graft take -Ok to resume showering -Wound care instructions: May shower, gently wash surgical sites. Remove dressings when showering. Pat dry. To right thigh: continue applying Xeroform gauze until there are no more openings in the skin, cover and hold in place with ABD pad and tape. Change dressing daily after showering. To penis: apply a layer of antibiotic ointment to the sore area at the top of penis. Apply daily after showering. No need to cover penis with gauze at this point. -Can resume wearing regular underwear -Continue follow up with urology -Contact office with any questions/concerns/changes prior to next appointment Follow up in 3 weeks The patient is seen and examined by Dr. Abhi Galicia MD and the following reflects his service. Scribed by Leslie Ya RN Attending Note I have personally performed a face to face assessment of the patient and have reviewed the RN's note. I agree with the Chief Complaint, ROS, and Past Histories independently gathered by the clinical sales support assistant and the remaining scribed note accurately describes my personal service to the patient. SIGNATURE: Abhi Galicia MD DATE: December 02, 2024 TIME: 10:39 AM documented in this encounter [facility] 11-30-2024 Note HNO ID: [id number] Author: ABHI GALICIA MD Service: ? Author Type: Physician Type: Progress Notes Filed: 12/02/2024 10:40 Note Text: Plastic Surgery Follow Up CC: Post op HPI: Steven is here for initial post op appointment following surgery. Patient had Split-thickness skin grafting shaft of the penis performed 11/06/2024 Time post op: 3 weeks Denies fevers, chills, erythema, induration, fluctuance, hematoma, seroma, purulent drainage, odor. He was having trouble urinating and followed up with Dr. Gillis on 11/20/24. He underwent meatal dilation and was prescribed clobetasol to apply to the area to prevent urethral closure. Patient reports he is using handheld urinal to urinate. His spouse uses a saline wound wash to cleanse the area if the dressing gets saturated with urine. He denies pain today, reports infrequent use of pain medications and is taking Tylenol as needed for pain. Surgical pathology/cultures: FINAL DIAGNOSIS A. Skin, penis, biopsy: - Scar-like tissue with minor chronic inflammation. - Negative for neoplasm. B. Skin, escutcheon, escutcheonectomy: - Benign skin and subcutaneous tissue with minor fibrosis. REVIEW OF SYSTEMS GENERAL: No weight loss, malaise or fevers SKIN: See HPI PMH: PAST MEDICAL HISTORY Diagnosis Date Anxiety 10/23/2024 Ascending aorta dilatation 10/23/2024 CKD (chronic kidney disease) stage 4, GFR 15-29 ml/min ([facility]) 10/23/2024 GERD (gastroesophageal reflux disease) 10/23/2024 Morbid obesity (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) 10/23/2024 PSH: PAST SURGICAL HISTORY Procedure Laterality Date PAST SURGICAL HISTORY OF 2011 cholecystectomy PAST SURGICAL HISTORY OF hand surgery PAST SURGICAL HISTORY OF circumcision MEDICATIONS: PAST MEDICAL HISTORY Diagnosis Date Anxiety 10/23/2024 Ascending aorta dilatation 10/23/2024 CKD (chronic kidney disease) stage 4, GFR 15-29 ml/min ([facility]) 10/23/2024 GERD (gastroesophageal reflux disease) 10/23/2024 Morbid obesity (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) 10/23/2024 PHYSICAL EXAM: BP 118/81 Pulse 67 Temp 36.3 ?C (97.4 ?F) (Temporal) GENERAL: Patient is a well-nourished , appearing stated age, resting comfortably, breathing regularly. No acute distress. WOUND: shaft of penis skin graft with good take, small sore area at tip of penis, right thigh donor site mostly healed with some small open areas ASSESSMENT/PLAN: Patient is 3 weeks s/p Split-thickness skin grafting shaft of the penis performed on 11/06/24 Expected post-operative course, 100% skin graft take -Ok to resume showering -Wound care instructions: May shower, gently wash surgical sites. Remove dressings when showering. Pat dry. To right thigh: continue applying Xeroform gauze until there are no more openings in the skin, cover and hold in place with ABD pad and tape. Change dressing daily after showering. To penis: apply a layer of antibiotic ointment to the sore area at the top of penis. Apply daily after showering. No need to cover penis with gauze at this point. -Can resume wearing regular underwear -Continue follow up with urology -Contact office with any questions/concerns/changes prior to next appointment Follow up in 3 weeks The patient is seen and examined by Dr. Abhi Galicia MD and the following reflects his service. Scribed by Leslie Ya RN Attending Note I have personally performed a face to face assessment of the patient and have reviewed the RN's note. I agree with the Chief Complaint, ROS, and Past Histories independently gathered by the clinical sales support assistant and the remaining scribed note accurately describes my personal service to the patient. SIGNATURE: Abhi Galicia MD DATE: December 02, 2024 TIME: 10:[address] [facility] 11-20-2024 Note Addended by: VAN GILLIS on: 11/20/2024 01:51 PM Modules accepted: Orders [facility] 11-20-2024 Miscellaneous Notes Addended by: VAN GILLIS on: 11/20/2024 01:51 PM Modules accepted: Orders documented in this encounter [facility] 11-20-2024 Note HNO ID: [id number] Author: VAN GILLIS MD Service: ? Author Type: Physician Type: Progress Notes Filed: 11/20/2024 10:37 Note Text: POST OP CHECK Having trouble voiding Once gets stream started he's fine On exam his meatus is narrow with some surrounding inflammatory changes All wounds look great and healing well without dehiscence or infection. Showed patient how to use meatal dilator BID. He will use this with clobetasol for 2 weeks, and then we will see how he does. Will move follow up farther out since I was able to examine him today. Van Gillis MD Director[facility] [place] [facility] 11-20-2024 History of Present illness Narrative POST OP CHECK Having trouble voiding Once gets stream started he's fine On exam his meatus is narrow with some surrounding inflammatory changes All wounds look great and healing well without dehiscence or infection. Showed patient how to use meatal dilator BID. He will use this with clobetasol for 2 weeks, and then we will see how he does. Will move follow up farther out since I was able to examine him today. Van Gillis MD Director, [facility] [place] documented in this encounter [facility] 11-19-2024 Telephone encounter Note Spoke with Elidia. Patient to come in for carballo placement tomorrow at 9:30 am. If unable to void or bladder pain/pressure in the interim, pt to go to local ED. Riki Long RN [facility] 11-19-2024 Miscellaneous Notes Spoke with Elidia. Patient to come in for carballo placement tomorrow at 9:30 am. If unable to void or bladder pain/pressure in the interim, pt to go to local ED. Riki Long RN Received voicemail from patient's , Elidia, concerned about difficulty voiding. Steven Walden is s/p Buried Penis Repair with split thickness graft with Dr. Gillis and Dr. Galicia on 11/06/24. Patient c/o difficulty voiding since yesterday. Pushes to initiate urine flow and to finish voiding. Weak stream and takes longer to void. Reports emptying bladder. Reports burning on glans with voiding. Skin is raw on glans. Patient's spoke with Plastics yesterday and was advised to apply vaseline to penis to help with pain with voiding. Helped some. Home health nurse was unable to visualize the urethral meatus today. Patient's cleaned off clear yellow scab from meatus and meatus visualized. Patient has post-op with Dr. Gillis scheduled on 11/26/[address] Galicia on 11/30/24. Will send photo on [employer]. Message will be routed to Dr. Gillis. Riki Long RN [place] 11/14/[address] Gillis POST OP VISIT Doing well. Minimal drain output. Seeing plastics today. Pain well controlled. Carballo and Jps removed Escutcheonectomy dressing removed. Looks good. Prineo still on mostly. Can leave open to air. No need for any wound care there. Dry gauze applied to drain sites. Scrotal incision looks good Left shaft Coban on for plastics and also thigh dressing. To see plastics today for graft care instructions Whatever he does to shaft can also be done to scrotal incision RTC with me 2 weeks, admin to arrange. documented in this encounter [facility] 11-19-2024 Telephone encounter Note Patient reached out to urology. Urology addressed concern Brea Doss APRN.CNP [facility] Work Phone: 11-19-2024 Miscellaneous Notes Patient reached out to urology. Urology addressed concern Brea Doss APRN.CNP [facility] calling and states that patient is having a hard time urinating. They are having a hard time seeing the whole. RN states that it looks raw and a n abrasion. This was a combo case with urology and plastics Shilpa from [facility] [phone] documented in this encounter [facility] 11-19-2024 Telephone encounter Note Received voicemail from patient's , Elidia, concerned about difficulty voiding. Steven Walden is s/p Buried Penis Repair with split thickness graft with Dr. Gillis and Dr. Galicia on 11/06/24. Patient c/o difficulty voiding since yesterday. Pushes to initiate urine flow and to finish voiding. Weak stream and takes longer to void. Reports emptying bladder. Reports burning on glans with voiding. Skin is raw on glans. Patient's spoke with Plastics yesterday and was advised to apply vaseline to penis to help with pain with voiding. Helped some. Home health nurse was unable to visualize the urethral meatus today. Patient's cleaned off clear yellow scab from meatus and meatus visualized. Patient has post-op with Dr. Gillis scheduled on 11/26/[address] Galicia on 11/30/24. Will send photo on [employer]. Message will be routed to Dr. Gillis. Riki Long RN [place] 11/14/[address] Gillis POST OP VISIT Doing well. Minimal drain output. Seeing plastics today. Pain well controlled. Carballo and Jps removed Escutcheonectomy dressing removed. Looks good. Prineo still on mostly. Can leave open to air. No need for any wound care there. Dry gauze applied to drain sites. Scrotal incision looks good Left shaft Coban on for plastics and also thigh dressing. To see plastics today for graft care instructions Whatever he does to shaft can also be done to scrotal incision RTC with ar 2 weeks, admin to arrange. [facility] 11-19-2024 Telephone encounter Note [facility] calling and states that patient is having a hard time urinating. They are having a hard time seeing the whole. RN states that it looks raw and a n abrasion. 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 Galicia 11/06/24. Postop, patient had a mummy bandage around his penis. 11/14 bandage, LINDA, carballo removed. Since removal of the dressing, patient has noticed raw spots on the glans (away from the surgical site) where the dressing rubbed against it. Whenever he urinates, it hurts when the urine hits these raw spots. Today, his had to take a gauze and clean a scab off the uretheral opening in order to urinate. Denies fevers, chills, difficulty breathing, shortness of breath, diarrhea, increased pain or swelling at the incision site. Plan - Discussed with patient to try a thick occlusive barrier such as vaseline on the raw spots to prevent contact with urine before he goes to the bathroom. Clean the uretheral opening frequently to prevent buildup of occlusive ointment. - Continue wound care to the STSG site as directed - no concerns at the moment at the surgical site - Patient agreeable to plan at this time, all questions and concerns addressed. Patient encouraged to call back with any additional questions or concerns. Instructed on red-flag symptoms. 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 Galicia 11/06/24. Postop, patient had a mummy bandage around his penis. 11/14 bandage, LINDA, carballo removed. Since removal of the dressing, patient has noticed raw spots on the glans (away from the surgical site) where the dressing rubbed against it. Whenever he urinates, it hurts when the urine hits these raw spots. Today, his had to take a gauze and clean a scab off the uretheral opening in order to urinate. Denies fevers, chills, difficulty breathing, shortness of breath, diarrhea, increased pain or swelling at the incision site. Plan - Discussed with patient to try a thick occlusive barrier such as vaseline on the raw spots to prevent contact with urine before he goes to the bathroom. Clean the uretheral opening frequently to prevent buildup of occlusive ointment. - Continue wound care to the STSG site as directed - no concerns at the moment at the surgical site - Patient agreeable to plan at this time, all questions and concerns addressed. Patient encouraged to call back with any additional questions or concerns. Instructed on red-flag symptoms. - Upcoming followup appointment: 11/26 documented in this encounter [facility] 11-18-2024 Telephone encounter Note Patient calling regarding post-op questions. Conferenced to [facility] studio technician video operator to speak with provider online affiliate marketing manager for Plastic surgery, Dr. Abhi Galicia. [facility] 11-18-2024 Miscellaneous Notes Patient calling regarding post-op questions. Conferenced to [facility] studio technician video operator to speak with provider online affiliate marketing manager for Plastic surgery, Dr. Abhi Galicia. documented in this encounter [facility] 11-14-2024 Note HNO ID: [id number] Author: ABHI GALICIA MD Service: ? Author Type: Physician Type: Progress Notes Filed: 11/14/2024 14:07 Note Text: Plastic Surgery Follow Up CC: Post op HPI: Steven is here for initial post op appointment following surgery. Patient had Split-thickness skin grafting shaft of the penis performed 11/06/2024 Time post op: 1 week The patient was seen by urology today, and had both LINDA drains and his carballo catheter removed. He is taking keflex as prescribed, scheduled to complete course of 11/16/24. Denies fevers, chills, erythema, induration, fluctuance, hematoma, seroma, purulent drainage, odor. Surgical pathology/cultures: FINAL DIAGNOSIS A. Skin, penis, biopsy: - Scar-like tissue with minor chronic inflammation. - Negative for neoplasm. B. Skin, escutcheon, escutcheonectomy: - Benign skin and subcutaneous tissue with minor fibrosis. REVIEW OF SYSTEMS GENERAL: No weight loss, malaise or fevers SKIN: See HPI PMH: PAST MEDICAL HISTORY Diagnosis Date Anxiety 10/23/2024 Ascending aorta dilatation 10/23/2024 CKD (chronic kidney disease) stage 4, GFR 15-29 ml/min ([facility]) 10/23/2024 GERD (gastroesophageal reflux disease) 10/23/2024 Morbid obesity (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) 10/23/2024 PSH: PAST SURGICAL HISTORY Procedure Laterality Date PAST SURGICAL HISTORY OF 2011 cholecystectomy PAST SURGICAL HISTORY OF hand surgery PAST SURGICAL HISTORY OF circumcision MEDICATIONS: PAST MEDICAL HISTORY Diagnosis Date Anxiety 10/23/2024 Ascending aorta dilatation 10/23/2024 CKD (chronic kidney disease) stage 4, GFR 15-29 ml/min ([facility]) 10/23/2024 GERD (gastroesophageal reflux disease) 10/23/2024 Morbid obesity (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) 10/23/2024 PHYSICAL EXAM: BP 133/87 Pulse 83 Temp 36.2 ?C (97.1 ?F) (Temporal) SpO2 98% GENERAL: Patient is a well-nourished , appearing stated age, resting comfortably, breathing regularly. No acute distress. WOUND: shaft of penis skin graft with good take, donor site dressing on right thigh clean/dry/intact ASSESSMENT/PLAN: Patient is 8 days s/p Split-thickness skin grafting shaft of the penis performed on 11/06/24 Expected post-operative course, 100% skin graft take -Wound care instructions: Apply a Xeroform gauze around the penis skin graft, cover with a clean gauze. Wrap with a small Kerlix gauze to hold in place. Change daily. Do not shower for now, please sponge bathe only. Supplies given to patient for wound care, encouraged purchase of additional products in a drug store or online as needed. -Wear loose boxers only, avoid tight underwear -Contact office with any questions/concerns/changes prior to next appointment -If experiencing wound complications or have any questions or concerns during business hours call [phone], option 3 or after hours (after 5 pm or on the weekend) call [phone] and ask for the plastic surgery resident / fellow online affiliate marketing manager for further instructions. Follow up in 2 weeks The patient is seen and examined by Abhi Galicia M.D. and the following reflects his service. Scribed by Leslie Ya RN [facility] 11-14-2024 Note HNO ID: [id number] Author: VAN GILLIS MD Service: ? Author Type: Physician Type: Progress Notes Filed: 11/14/2024 08:45 Note Text: POST OP VISIT Doing well. Minimal drain output. Seeing plastics today. Pain well controlled. Carballo and Jps removed Escutcheonectomy dressing removed. Looks good. Prineo still on mostly. Can leave open to air. No need for any wound care there. Dry gauze applied to drain sites. Scrotal incision looks good Left shaft Coban on for plastics and also thigh dressing. To see plastics today for graft care instructions Whatever he does to shaft can also be done to scrotal incision RTC with me 2 weeks, admin to arrange. Van Gillis MD Director, [facility], [facility] [place] [facility] 11-08-2024 Note HNO ID: [id number] Author: SONDRA CARDENAS LSW Service: Care Management Author Type: Litigation Secretary Type: Care Mgt Progress Note Filed: 11/08/2024 15:39 Note Text: CARE MANAGEMENT DISCHARGE NOTE SERVICE DATE: November 08, 2024 SERVICE TIME: 3:37 PM Admission Date: 11/06/2024 LOS: 2 days Discharge Information Row Name Admission (Current) from 11/06/2024 in [facility] Facility Agency [facility] Care Pt has been medically cleared for dc today. Updated [facility]. Home Care will contact spouse directly to arrange visits. SIGNATURE: PAKO Domingo PATIENT NAME: Steven Walden DATE: November 08, 2024 TIME: 3:[address] [facility] 11-08-2024 Note HNO ID: [id number] Author: ADA PARIS ? Service: Pharmacy Author Type: Metal Tank Erector Type: Plan of Care Filed: 11/08/2024 14:47 Note Text: Insurance investigation completed Patient has active prescription insurance: Yes - Patient's insurance is in-network with [facility] Insurance loaded into [place]: Yes Test claim was completed to verify insurance is active: Successful Is patient eligible for [facility]? No Any questions, please reach out to your medication forest practices field coordinator. [facility] 11-08-2024 Note HNO ID: [id number] Author: ERICK SANTACRUZ RPh Service: Pharmacy Author Type: Pharmacist Type: Plan of Care Filed: 11/08/2024 14:38 Note Text: DISCHARGE MEDICATION REVIEW BY PHARMACY Patient Name: Steven Walden Account #: Data Unavailable Admission Date: 11/06/2024 Date of Contact: November 08, 2024 Time of Contact: 2:37 PM Medication list was reviewed by a Pharmacist for drug interactions or drug related problems:Yes Below is a summary of pharmacist recommendations discussed with LIP: No recommendations at this time from discharge medication list. Erick Santacruz RPh Pager: [phone] 11/08/2024 2:37 PM Medication List START taking these medications cephALEXin 500 mg capsule Commonly known as: KEFLEX Take 1 capsule by mouth three times a day for 8 days. docusate sodium 100 mg capsule Commonly known as: COLACE Take 1 capsule by mouth two times a day. oxyCODONE IR 5 mg immediate release tablet Commonly known as: ROXICODONE Take 1 tablet by mouth every 6 hours as needed for pain for up to 3 days. CONTINUE taking these medications allopurinol 100 mg tablet Commonly known as: ZYLOPRIM Amoxicillin 500 mg tablet atorvastatin 20 mg tablet Commonly known as: LIPITOR folic acid 1 mg tablet furosemide 40 mg tablet Commonly known as: LASIX HUMULIN R U-500 (CONC) INSULIN SQ hydrOXYzine pamoate 50 mg capsule Commonly known as: VISTARIL INGREZZA 60 mg capsule Generic drug: valbenazine Iron 325 mg (65 mg iron) tablet Generic drug: ferrous sulfate magnesium oxide 400 mg magnesium Tab midodrine 2.5 mg tablet Commonly known as: PROAMATINE omeprazole 40 mg capsule Commonly known as: PriLOSEC PARoxetine 20 mg tablet Commonly known as: PAXIL potassium chloride ER 20 mEq tablet Commonly known as: KLOR-CON * QUEtiapine 25 mg tablet Commonly known as: SEROquel * QUEtiapine 200 mg tablet Commonly known as: SEROquel SODIUM BICARB-TARTARIC ACID ORAL TRULICITY SQ VITAMIN B-1 100 mg tablet Generic drug: thiamine * This list has 2 medication(s) that are the same as other medications prescribed for you. Read the directions carefully, and ask your doctor or other care provider to review them with you. Where to Get Your Medications These medications were sent to e- [facility]/pharmacy [address] [phone] [place] [address] cephALEXin 500 mg capsule docusate sodium 100 mg capsule oxyCODONE IR [address] immediate release tablet [facility] 11-08-2024 Note HNO ID: [id number] Author: SONDRA CARDENAS LSW Service: Care Management Author Type: Litigation Secretary Type: Care Mgt Progress Note Filed: 11/08/2024 13:29 Note Text: CARE MANAGEMENT PROGRESS NOTE SERVICE DATE: 11/08/2024 SERVICE TIME: 1:25 PM LOS: 2 days DISCHARGE PLAN Discharge plan discussed with: pt, spouse, primary team Anticipated Discharge Plan: Home with Home Care, see below Anticipated Discharge Date: Within 24 hours DISCHARGE TRANSPORTATION Discharge Transportation: spouse Discharge Barriers: Spouse approached CM this am and asked for home care to be arranged. She spoke with pt and he is now agreeable. Home Care referrals sent. Pt has been accepted by 2. Once dc is known, CM will finalize arrangements. CM following. SIGNATURE: PAKO Domingo PATIENT NAME: Steven Walden DATE: November 08, 2024 TIME: 1:[address] [facility] 11-08-2024 Note HNO ID: [id number] Author: TITA BRADSHAW MD Service: Urology Author Type: Resident Type: Progress Notes Filed: 11/08/2024 07:16 Note Text: [facility] UROLOGY PROGRESS NOTE Name: Steven Walden Date: November 08, 2024 ASSESSMENT AND PLAN Steven Walden is a 64 year old male with history of lichen sclerosis acquired buried penis now s/p complex wound closure of escutcheonectomy defect, lysis of penile adhesions, scrotectomy, penopubic junction fixation with creation of penopubic and penoscrotal angle. Plastic surgery completed split thickness skin graft harvest from the thigh and application. INTERVAL/SUBJECTIVE - Pain well-controlled - Tolerating CC diet without n/v - Denies CP/SOB/F/C - Ambulated into hallway yesterday and sitting in chair yesterday Plan: - Neuro: multimodal pain regimen, scheduled tylenol, TID robaxin, PRN narcotic - Cardiac: midodrine daily - Respiratory: Continue IS, BPH - GI: CC diet, BID docusate, PRN Zofran, Tums, miralax - Renal: Hep locked. Strict I/Os. - Heme: No clinical evidence of bleeding - ID: periop ancef - Endo: U500 with meals BID per home meds, endocrinology recommendations pending - Activity: OOB, ambulate as able - Prophylaxis: SCDs, SQH - Dispo: Discharge today, pending home endocrinology optimization - Follow up: post op follow up 11/14 with plastics, urology scheduled Wound plan per plastics: Penis: Maintain adpatic, baci, sameer, coban wrap around penis. Do not soil. Right Thigh: Maintain xeroform, tegaderm. Expect oozing from donor site. Can pad with ABD, kym wrap. Activity: Limit shearing forces to penis to allow adherence of skin graft. Ok for ambulation. Active Problems Buried Penis POA - surgery scheduled for 11/06 Erectile Dysfunction POA - emphasized the importance of T2DM and the possibility of improvement after surgery Hx of Nephrolithiasis - encourage hydration to avoid stone formation GERD POA - continue omeprazole 40 mg T2DM POA - most recent A1C 7.1, resume home U500 with meals Morbid Obesity POA - encourage weight loss SHADE POA - encourage continued use of CPAP machine CKD IV with solitary right kidney POA - continue to trend Scr and avoid nephrotoxic medications Tardive Dyskinesia POA - continue valbenazine 60 mg Anxiety POA - continue paroxetine 20 mg Tita Bradshaw MD Resident PGY-2 Urology Pager: [phone] For weekend or after hours issues [place] [phone] Objective Labs - no labs Vitals: SBP 111-133, HR 63-84, SpO2 > 90% on CPAP overnight, Tmax 98.1 UOP: 3675cc/24hrs via 14Fr urethral carballo, LINDA Right 80cc/24hrs, LINDA Left 80cc/24hrs Culture: none Vital Signs BP 133/78 Pulse 64 Temp 36 ?C (96.8 ?F) (Oral) Resp 16 Ht 190.5 cm (6' 3 ) Wt (!) 146.5 kg (323 lb) SpO2 95% BMI 40.37 kg/m? Input and Output Intake/Output Summary (Last 24 hours) at 11/08/2024 0606 Last data filed at 11/08/2024 0550 Gross per 24 hour Intake 3225 ml Output 3835 ml Net -610 ml Physical Exam GEN: Alert, NAD EYES: Anicteric LUNGS: No increased WOB on RA HEART: Reg rate ABDOMEN: nontender, nondistended : escutcheonectomy incision on mons, dry and intact - covered in foam tape. Penis wrapped in coban - glans cap refill < 4 sec. R thigh graft site clean and dry - xeroform adherent. Penoscrotal incision with primapore, loosely adherent - xeroform underneath - wound CDI. LINDA bilateral SS. 14 Fr carballo draining clear yellow. Labs Recent Labs 11/07/24 0014 11/06/24 1321 WBC 14.38* 12.86* HB 13.5 13.7 HCT 39.3 39.6 PLT 227 194 NA 137 140 K 4.3 4.3 CHLOR 105 106 CO2 17* 18* BUN 24 29* CREAT 2.10* 2.13* GLUC 183* 213* CA 8.5 8.4* Imaging No orders to display [facility] 11-07-2024 Note HNO ID: [id number] Author: SONDRA CARDENAS LSW Service: Care Management Author Type: Litigation Secretary Type: Care Mgt Initial Assessment Filed: 11/07/2024 16:02 Note Text: CARE MANAGEMENT: ASSESSMENT AND DISCHARGE PLAN SERVICE DATE: November 07, 2024 SERVICE TIME: 4:00 PM PCP: No primary care provider on file. Primary Contact: Extended Emergency Contact Information Primary Emergency Contact: SANTO WALDEN Mobile Relation: Spouse Admission Status: Inpatient Insurance Provider: ZIA MURPHY FEP PPO Discharge Planning requested by: Per Department Practice Potential Transition Plans Home, No Services Indicated Advance Directives Current Advance Directive: None Volunteer Manager Attempted to Assist with AD Completion: Yes Action: Education Provided Current Living Arrangements and Support Lives with: Spouse/significant other Type of Residence: Private Residence (House) Support: Spouse/significant other How do you manage to accomplish the following: Independent: Ambulation, Bathe/Shower, Meals/Meal Prep, Going to the bathroom, Medication Management, Dress Current Services/Equipment Current Post-Acute Service(s): None Discharge Planning Patient Goal(s): General wellness [place] Explained: [place] Given: No Reason Not Given: No placements necessary Are you interested in bedside delivery of your medications? Yes Discharge Planning Participant(s): Patient, Spouse/significant other Patient/Family Comments: Spouse at bedside Caregiver Assessment: Caregiver is ready, willing and able to meet the patient's needs as recommended by the inter-professional team: Yes Name of Caregiver: Spouse Transport at Discharge: Transportation Arrangements: Car Needs Prior to Discharge: Needs Prior to Discharge: To Be Determined Post-Acute Discharge Plan: Met with pt at bedside. Spouse was also present. Pt is s/p complex wound closure of escutcheonectomy defect, lysis of penile adhesions, scrotectomy, penopubic junction fixation with creation of penopubic and penoscrotal angle. Plastic surgery completed split thickness skin graft harvest from the thigh and application. Discussed recommendation for home care. Pt reports he is very private and does not want anyone in the home. He feels spouse can manage. Spouse is willing to learn wound care. Offered to stop by tomorrow to check on pt. CM following. SIGNATURE: PAKO Domingo PATIENT NAME: Steven Walden DATE: November 07, 2024 TIME: 4:[address] [facility] 11-07-2024 Note HNO ID: [id number] Author: TITA BRADSHAW MD Service: Urology Author Type: Resident Type: Progress Notes Filed: 11/07/2024 06:41 Note Text: [facility] UROLOGY PROGRESS NOTE Name: Steven Walden Date: November 07, 2024 ASSESSMENT AND PLAN Steven Walden is a 64 year old male with history of lichen sclerosis acquired buried penis now s/p complex wound closure of escutcheonectomy defect, lysis of penile adhesions, scrotectomy, penopubic junction fixation with creation of penopubic and penoscrotal angle. Plastic surgery completed split thickness skin graft harvest from the thigh and application. INTERVAL/SUBJECTIVE - Pain well-controlled - Tolerating CLD without n/v - Denies CP/SOB/F/C Plan: - Neuro: multimodal pain regimen, scheduled tylenol, TID robaxin, PRN narcotic - Cardiac: midodrine daily - Respiratory: Continue IS, BPH - GI: CC diet, BID docusate, PRN Zofran, Tums, miralax - Renal: 125cc/hr IVF. Strict I/Os. Replete electrolytes prn. Lasix 40mg daily. - Heme: No clinical evidence of bleeding - ID: periop ancef - Endo: SSI2 - endo consult - Activity: OOB, ambulate as able - Prophylaxis: SCDs, SQH - Dispo: Continue RNF status Wound plan per plastics: Penis: Maintain adpatic, baci, sameer, coban wrap around penis. Do not soil. Right Thigh: Maintain xeroform, tegaderm. Expect oozing from donor site. Can pad with ABD, kym wrap. Activity: Limit shearing forces to penis to allow adherence of skin graft. Active Problems Buried Penis POA - surgery scheduled for 11/06 Erectile Dysfunction POA - emphasized the importance of T2DM and the possibility of improvement after surgery Hx of Nephrolithiasis - encourage hydration to avoid stone formation GERD POA - continue omeprazole 40 mg T2DM POA - most recent A1C 7.1, hold home antihyperglemics, SSI Morbid Obesity POA - encourage weight loss SHADE POA - encourage continued use of CPAP machine CKD IV with solitary right kidney POA - continue to trend Scr and avoid nephrotoxic medications Tardive Dyskinesia POA - continue valbenazine 60 mg Anxiety POA - continue paroxetine 20 mg Tita Bradshaw MD Resident PGY-2 Urology Pager: [phone] For weekend or after hours issues [place] [phone] Objective Labs: WC 14.38 (12.86), Hgb 13.5 (13.7), Plts 227 (194), Scr 2.10 (2.13) Vitals: SBP 87-162, HR 62-118, SpO2 > 90% on CPAP overnight, Tmax 98.6 UOP: 1950cc/24hrs, LINDA Right - 10, Left - 30 cc/24hrs Culture: Culture data - none Vital Signs BP 119/65 Pulse 84 Temp 36.3 ?C (97.3 ?F) (Oral) Resp 16 Ht 190.5 cm (6' 3 ) Wt (!) 146.5 kg (323 lb) SpO2 91% BMI 40.37 kg/m? Input and Output Intake/Output Summary (Last 24 hours) at 11/07/2024 0634 Last data filed at 11/07/2024 0632 Gross per 24 hour Intake 2945 ml Output 1990 ml Net 955 ml Physical Exam GEN: Alert, NAD EYES: Anicteric LUNGS: No increased WOB on RA HEART: Reg rate ABDOMEN: nontender, nondistended : escutcheonectomy incision on mons, dry and intact - covered in foam tape. Penis wrapped in coban - glans cap refill < 4 sec. R thigh graft site clean and dry - xeroform adherent. LINDA bilateral SS. 14 Fr carballo draining clear yellow urine. Labs Recent Labs 11/07/24 0014 11/06/24 1321 WBC 14.38* 12.86* HB 13.5 13.7 HCT 39.3 39.6 PLT 227 194 NA 137 140 K 4.3 4.3 CHLOR 105 106 CO2 17* 18* BUN 24 29* CREAT 2.10* 2.13* GLUC 183* 213* CA 8.5 8.4* Imaging No orders to display [facility] 11-06-2024 Note HNO ID: [id number] Author: TITA BRADSHAW MD Service: Urology Author Type: Resident Type: Progress Notes Filed: 11/06/2024 19:41 Note Text: [facility] UROLOGY PROGRESS NOTE Name: Steven Walden Date: November 06, 2024 ASSESSMENT AND PLAN Steven Walden is a 64 year old male with history of lichen sclerosis acquired buried penis now s/p complex wound closure of escutcheonectomy defect, lysis of penile adhesions, scrotectomy, penopubic junction fixation with creation of penopubic and penoscrotal angle. Plastic surgery completed split thickness skin graft harvest from the thigh and application. INTERVAL/SUBJECTIVE - Pain well-controlled - Tolerating CLD without n/v - Denies CP/SOB/F/C Plan: - Neuro: multimodal pain regimen, scheduled tylenol, TID robaxin, PRN narcotic - Cardiac: midodrine daily - Respiratory: Continue IS, BPH - GI: CLD diet. BID docusate, PRN Zofran, Tums, miralax - Renal: 125cc/hr IVF. Strict I/Os. Replete electrolytes prn. Lasix 40mg daily. - Heme: No clinical evidence of bleeding - ID: periop ancef - Endo: SSI 2 - Activity: OOB, ambulate as able - Prophylaxis: SCDs, SQH - Dispo: Continue RNF status Wound plan per plastics: Penis: Maintain adpatic, baci, sameer, coban wrap around penis. Do not soil. Right Thigh: Maintain xeroform, tegaderm. Expect oozing from donor site. Can pad with ABD, kym wrap. Activity: Limit shearing forces to penis to allow adherence of skin graft. Active Problems Buried Penis POA - surgery scheduled for 11/06 Erectile Dysfunction POA - emphasized the importance of T2DM and the possibility of improvement after surgery Hx of Nephrolithiasis - encourage hydration to avoid stone formation GERD POA - continue omeprazole 40 mg T2DM POA - most recent A1C 7.1, hold home antihyperglemics, SSI Morbid Obesity POA - encourage weight loss SHADE POA - encourage continued use of CPAP machine CKD IV with solitary right kidney POA - continue to trend Scr and avoid nephrotoxic medications Tardive Dyskinesia POA - continue valbenazine 60 mg Anxiety POA - continue paroxetine 20 mg Tita Bradshaw MD Resident PGY-2 Urology Pager: [phone] For weekend or after hours issues [place] [phone] Objective Labs: WC 12.86 (9.42), Hgb 13.7 (15.2), Plts 194 (241), Scr 2.13 (2.12) Vitals: SBP 87-162, HR 62-118, SpO2 > 90% on RA, Tmax 98.6 UOP: 500cc since OR, LINDA-right - 5cc, LINDA- left 5cc Culture data - none Labs: WC 12.86 (9.42), Hgb 13.7 (15.2), Plts 194 (241), Scr 2.13 (2.12) Vitals: SBP 87-162, HR 62-118, SpO2 > 90% on RA, Tmax 98.6 UOP: 500cc since OR, LINDA-right - 5cc, LINDA- left 5cc Culture data - none Vital Signs BP 120/76 Pulse 77 Temp 36.6 ?C (97.9 ?F) (Temporal) Resp 18 Ht 190.5 cm (6' 3 ) Wt (!) 146.5 kg (323 lb) SpO2 97% BMI 40.37 kg/m? Input and Output No intake or output data in the 24 hours ending 11/06/24 0629 Physical Exam GEN: Alert, NAD EYES: Anicteric LUNGS: No increased WOB on RA HEART: Reg rate ABDOMEN: nontender, nondistended : escutcheonectomy incision on mons, dry and intact - covered in foam tape. Penis wrapped in coban - glans cap refill < 4 sec. R thigh graft site clean and dry - xeroform adherent. LINDA bilateral SS. 14 Fr carballo draining clear yellow urine. Labs Recent Labs 11/06/24 1321 WBC 12.86* HB 13.7 HCT 39.6 PLT 194 NA 140 K 4.3 CHLOR 106 CO2 18* BUN 29* CREAT 2.13* GLUC 213* CA 8.4* Imaging No orders to display [facility] 11-06-2024 Note HNO ID: [id number] Author: BECKY FARRAR MD Service: Plastic Surgery Author Type: Resident Type: Plan of Care Filed: 11/06/2024 13:45 Note Text: PLASTIC SURGERY POSTOPERATIVE PLAN: 64 year old male s/p Escutcheonectomy for buried penis (Uro) AND STSG to penis (PRS) Plan: Surgical site(s)/Wound care: Wound care: Penis: Maintain adpatic, baci, sameer, coban wrap around penis. Do not soil. Right Thigh: Maintain xeroform, tegaderm. Expect oozing from donor site. Can pad with ABD, kym wrap. Activity: Limit shearing forces to penis to allow adherence of skin graft. Becky Farrar MD, MPH Plastic AND Reconstructive Surgery P: [phone] Ultrasonographer-Weekends and after 6pm: [id number] 11/06/2024 [facility] 11-06-2024 Note HNO ID: [id number] Author: CHELSEA MENDOZA APRN.FIELD FOREMAN Service: ? Author Type: Nurse Brilliandeer Lopper Type: Anesthesia Procedure Notes Filed: 11/06/2024 08:10 Note Text: ANESTHESIOLOGY PROCEDURE NOTE PIV General Information Procedure Start Time/Medication Administration: [...] Left Location: Hand Imaging Guidance Used: No SIGNATURE: Chelsea Mendoza APRN.FIELD FOREMAN PATIENT NAME: Steven Walden DATE: November 06, 2024 TIME: 8:10 AM CSN: [id number] [facility] 11-06-2024 Note HNO ID: [id number] Author: CHELSEA MENDOZA APRN.FIELD FOREMAN Service: ? Author Type: Nurse Brilliandeer Lopper Type: Anesthesia Procedure Notes Filed: 11/06/2024 08:09 Note Text: ANESTHESIOLOGY PROCEDURE NOTE Airway General Information Procedure Start Time/Medication Administration: 11/06/2024 7:31 AM Procedure End Time: 11/06/2024 7:36 AM Patient location during procedure: OR Timeout Performed Pre-procedure: timeout performed Consent Obtained: Yes Patient identity confirmed: arm band, care steam box hand and patient Staffing FIELD FOREMAN: Chelsea Mendoza APRN.FIELD FOREMAN Performed by: GUSTABO Indications and Patient Condition [...] Unrecognized esophageal intubation: no Airway not difficult SIGNATURE: Chelsea Mendoza APRN.CRNA PATIENT NAME: Steven Walden DATE: November 06, 2024 TIME: 8:08 AM CSN: [id number] [facility] 10-30-2024 Telephone encounter Note Images from the original note were not included. Spoke with Santo. Notified ok to proceed. HAYDE Duenas Petar, MD You13 minutes ago (1:54 PM) Ok to proceed [facility] 10-30-2024 Miscellaneous Notes Images from the original note were not included. Spoke with Santo. Notified ok to proceed. HAYDE Duenas Petar, MD You13 minutes ago (1:54 PM) Ok to proceed Pt's , Santo, called into office to report patient has infection in a molar. Asking if ok to proceed with upcoming surgery. Steven Walden is scheduled for buried penis repair next Tuesday11/06/[address] Gillis. Reports tooth pain for the last week. Denies swelling, fever. Saw dentist today and prescribed Amoxicillin for [address] Gillis will be notified and nurse will call back Santo at [phone] Dave Long RN documented in this encounter [facility] 10-30-2024 Telephone encounter Note Pt's , Santo, called into office to report patient has infection in a molar. Asking if ok to proceed with upcoming surgery. Steven Walden is scheduled for buried penis repair next Tuesday11/06/[address] Gillis. Reports tooth pain for the last week. Denies swelling, fever. Saw dentist today and prescribed Amoxicillin for [address] Gillis will be notified and nurse will call back Santo at [phone] Dave Long RN [facility] 10-23-2024 Instructions Cintia Salinas PA-C - 10/23/2024 11:19 AM EDT Images from the original note were not included. [facility] PATIENT PREOPERATIVE INSTRUCTIONS No ref. provider found has scheduled you for your procedure at this surgery center: [facility] Scheduling Office: [phone] --[address] [place] [address]. Please read below carefully for your personalized instructions. Dietary Restrictions: - No solid food after midnight. - You may have 12 ounces of clear liquids (water, clear juices such as apple juice or gatorade, carbonated beverages, clear tea, black coffee, jello) until 2 hours before scheduled arrival at facility. Medications: Unless instructed differently below, stay on all of your medications until your surgery. If you start any new medications after today's visit, please contact your surgeon. Pre-Surgery Med Instructions Medication Instructions hydrOXYzine pamoate (VISTARIL) 50 mg capsule If you normally take this medication in the morning, take the morning of surgery. (If needed) PARoxetine (PAXIL) 20 mg tablet If you normally take this medication in the morning, take the morning of surgery. allopurinol (ZYLOPRIM) 100 mg tablet Do not take the day of surgery folic acid 1 mg tablet Do not take the day of surgery furosemide (LASIX) 40 mg tablet Do not take the day of surgery omeprazole (PRILOSEC) 40 mg capsule If you normally take this medication in the morning, take the morning of surgery. midodrine (PROAMATINE) 2.5 mg tablet If you normally take this medication in the morning, take the morning of surgery. thiamine (VITAMIN B-1) 100 mg tablet Do not take the day of surgery potassium chloride ER (KLOR-CON) 20 mEq tablet If you normally take this medication in the morning, take the morning of surgery. QUEtiapine (SEROQUEL) 25 mg tablet Continue at night. QUEtiapine (SEROQUEL) 200 mg tablet Take day of surgery if needed. ferrous sulfate (IRON) 325 mg (65 mg iron) tablet Do not take the day of surgery simethicone/sod bicarb/tta (SODIUM BICARB-TARTARIC ACID ORAL) Do not take the day of surgery atorvastatin (LIPITOR) 20 mg tablet If you normally take this medication in the morning, take the morning of surgery. magnesium oxide 400 mg magnesium tab Do not take the day of surgery valbenazine (INGREZZA) 60 mg capsule Continue at night. insulin regular, human (HUMULIN R U-500, CONC, INSULIN SUBCUTANEOUS) Do not take the day of surgery dulaglutide (TRULICITY SUBCUTANEOUS) Hold 7 days before surgery. Last dose 10/23. If you take any medications for erectile dysfunction-Cialis (Tadalafil), Levitra, Staxyn (Vardenafil) Viagra (Sildenenafil please do not take these for 48 hours before surgery. If you start any new medications after today's visit, please contact the surgeon's office. If you are currently using a [id number] injectable or oral medication for diabetes or weight loss such as Dulaglutide (Trulicity), Exenatide (Byetta, Bydureon), Liraglutide (Victoza, Saxenda), Semaglutide (Ozempic, Wegovy, Rybelsus), or Tirzepatide (Mounjaro), the medicine should be stopped at least 7 days before surgery. These medicines can cause food to remain in your stomach for a very long time and increase the risks from surgery and anesthesia. Not stopping the medication for a long enough time may result in your surgery being rescheduled. Blood Thinning Medications: - Stop NSAIDS (Ibuprofen, Advil, Aleve, Motrin, Celebrex, Mobic, etc.) 7 days before surgery, as directed by your surgeon. - Stop Aspirin 7 days before surgery, as directed by your surgeon. - Stop ALL herbal and dietary supplements 7 days before surgery. - You may take Tylenol (Acetaminophen) or any of your pain medications that do not contain aspirin or NSAIDS as needed. Important Reminders: - If you use CPAP/BIPAP, bring the machine with you to the surgery center. - Candy, mints, and tobacco products are NOT permitted the morning of surgery. - Hearing aids, dentures and glasses may be worn the morning of surgery. - NO jewelry, body piercings, makeup, hairpins or contacts are to be worn the day of surgery. If you develop symptoms such as a fever, cold, or flu, or have other changes to your health within TWO DAYS of scheduled surgery or the morning of surgery, please contact the surgery center above. Personal Belongings: -Please have photo ID and insurance cards. -If you do not have a copy of advance directives on file with us, please bring a copy with you on the day of surgery. - Leave ALL valuables and money at home or with family members. - Please bring high-quality footwear, such as sneakers, to the hospital for ambulating post-surgery. For Outpatient Procedures: - YOU MUST HAVE A RESPONSIBLE MANAGER ORACLE RETAIL TAKE YOU HOME. A GRADES 1 THROUGH 6 TEACHER OR MEDICAL DELIVERY TECHNICIAN CANNOT BE MADE A RESPONSIBLE MANAGER ORACLE RETAIL. - We recommend that a responsible person stays with you overnight to take care of you. - You cannot stay in a hotel alone after outpatient surgery. You will not be permitted to have your surgery, if you do not have someone to take care of you. Arrival Time for Surgery: - To obtain your arrival time for surgery, call your physician's office the day before your surgery. - If you have received different instructions about finding out your arrival time from your surgeon, please follow those instructions. - If your surgery is scheduled for Tuesday, call the Tuesday before. Your surgeon s surgery scheduler will tell you what time to call the office. - If you have not reached the departmental surgery scheduler by 5 P.M., call [phone] after 5 P.M. the day before your surgery. Please be aware that emergency situations arise, which may delay or change your surgical time. If this happens, we will notify you as soon as possible and regret any inconvenience. If you already have an Advance Directive, please fax a copy to [phone] or email to for it to be added to your chart. If you do not have an Advance Directive, you can find the appropriate form and more information at [email or web address]. We recommend that you complete the Advance Directive form found on the website and bring it with you the day of your surgery. It can be witnessed and scanned into your chart that day. Cintia Salinas PA-C documented in this encounter [facility] 10-23-2024 History and physical note Images from the original note were not included. [facility] HISTORY AND PHYSICAL EXAMINATION SERVICE DATE: 10/23/2024 SERVICE TIME: 12:54 PM PRIMARY CARE PHYSICIAN: No primary care provider on file. Assessment Patient has the following medical conditions which may affect sada-operative course: GERD (gastroesophageal reflux disease) H/o duodenal ulcers. On Prilosec. Type 2 diabetes mellitus with kidney complication, with long-term current use of insulin (HCC) On Trulicity, Humulin R. FBS 140s HgA1C 7.0 on 08/09/2024. Morbid obesity ([facility]) Body mass index is 40.4 kg/m . On Trulicity, advised patient to stop 7 days prior to surgery. SHADE (obstructive sleep apnea) Compliant with CPAP. Myocardial bridge ([facility]) Cardiac cath with normal coronary arteries with mid LAD myocardial bridging in 2017. Follows with cardiology, last visit 02/29/2024. Orthostatic hypotension On midodrine. Denies syncope. BP 124/82 in office today. Follows with cardiology, last visit 02/29/2024. Denies new or worsening symptoms. CKD (chronic kidney disease) stage 4, GFR 15-29 ml/min (HCC) H/o DAISY requiring dialysis temporarily. Now with CKD stage 4 per patient. Follows with nephrology. BMP pending. Anxiety Severe anxiety, on Paxil, hydroxyzine, Seroquel. Tardive dyskinesia On Ingrezza. Follows with neurology. Ascending aorta dilatation Mildly dilated ascending aorta and aortic root 4.0 cm on 08/30/2022. ANESTHESIA FINDINGS: Intubation History: No history of difficult intubation Significant Anesthesia Considerations: hard stick - has better results with hand veins. Has needed US guidance once. potential difficult IV/vein access Airway History: No history of difficult airway Coles Activity Status Index: METS: Walk indoors, such as around the house (1.75 METs) Do light work around the house, such as dusting or washing dishes (2.70 METs) Take care of self; that is eating, dressing, bathing, using the toilet (2.75 METs) Climb a flight of stairs or walk up a hill (5.50 METs) DASI Score: 12.7 (Winded with walking long distances, housework. Has been going on for years, denies worsening. Able to climb one flight of stairs without symptoms.) Patient denies any chest pain or undue shortness of breath with the above physical activity. Clinical Frailty Scale: 3. Well, with treated comorbid disease STOP-Bang Score: BMI greater than 35 kg/m^2 Patient over 50 years old Has a large neck Male patient STOP-Bang Score: 4 (SHADE uses CPAP. ) [id number] Score: Diabetes history: Yes [id number] Score: I - PHYSICAL EVALUATION AIRWAY Patient intubated: No. Tracheostomy tube not present Mallampati: IV. TM distance: >3 FB. Neck ROM: full ROM without neurological symptoms. Mouth opening: adequate. Short neck: yes. Thick neck: yes Lip Bite Test: I DENTAL Dental findings: broken tooth. Additional comments: Crowns Broken molar . II - ANESTHESIA PLAN Anesthetic plan additional comments: *PACC/TCI - anesthesia choice. Beta Sapna Monitoring Plan Post Procedure Analgesic Plan Prepared for Surgery: optimally prepared for surgery, pending [see comment]. Labs and EKG. CONSULTS: Patient does not require consults for optimization at this time Planned Anesthetic: anesthesia choice The Following Tests/Procedures Have Been Initiated: Labs and EKG per surgical service. REASON FOR VISIT: Steven Walden is a 64 year old male who is scheduled for Procedure(s): Excision, excessive skin and subcutaneous tissue (includes lipectomy); abdomen, infraumbilical panniculectomy (N/A) ADJACENT TISSUE TRANSFER / REARRANGEMENT ABDOMEN 30.1-60.0 SQCM (N/A) SCROTOPLASTY COMPLICATED (Bilateral) ADJACENT TISSUE TRANSFER / REARRANGEMENT ABDOMEN ADD'L < OR =30 SQCM SQCM (N/A) PLASTIC OP ON PENIS TO CORRECT ANGULATION (N/A) SPLIT-THICKNESS AUTOGRAFT MALE GENITALIA <100 SQ CM (Pending) at the request of Van Baron MD for consultation. My final recommendation will be communicated back to the requesting physician by way of shared medical record or letter. Subjective The patient has the following: COVID-19 Immunization Status Current Care Gaps Covid-19 Vaccine (2023- season) Overdue since 12/11/2023 09/04/2020 Imm Admin: COVID-19 vaccine (Talkray) CHIEF COMPLAINT: Pre-op evaluation HPI: Patient is a 64 year old year old male who is scheduled for above case on 11/06/2024. Patient has buried penis causing difficulty with urination. He had a slit procedure by his local urologist which temporarily improved urine flow but the penis has retracted again. Denies any fevers, chills, nausea, vomiting, SOB or chest pain. REVIEW OF SYSTEMS: General: Negative for: weight loss >10% of BW in last 6 months, malaise and fever. Neurological: Negative for: delirium, dementia, headaches, seizures, TIA and strokes. Respiratory: Positive for: obstructive sleep apnea and CPAP/BiPAP compliant. Negative for: asthma, COPD, current cough, dyspnea, home oxygen, pneumonia within 6 weeks and tobacco use. Cardiovascular: Orthostatic hypotension Negative for: angina, arrhythmia, CAD, chest pain, CHF, DVT/PE, hypertension, recent PR, murmur/valvular heart disease and PVD. GI: Positive for: GERD Negative for: abdominal pain, hepatitis, inflammatory bowel disease, liver disease and ETOH >2 drinks/day. : See HPI. Positive for: renal failure (Stage 4). Negative for: on dialysis, dysuria, hematuria and nephrolithiasis. Endocrine: Positive for: diabetes mellitus. Negative for: hyperthyroidism, hypothyroidism and steroid for chronic problem. Hematology: Negative for: anemia, thrombocytopenia and chronic anti-coagulation/platelet meds. Oncology: No history of CA metastasis, chemo within 30 days, or radiotherapy within 90 days. No history of oncological symptoms or problems. Psych: Positive for: anxiety and depression. Musculoskeletal: Negative for joint pain or swelling, back pain or muscle pain. Skin: See HPI. PAST MEDICAL HISTORY Diagnosis Date Anxiety 10/23/2024 Ascending aorta dilatation 10/23/2024 CKD (chronic kidney disease) stage 4, GFR 15-29 ml/min ([facility]) 10/23/2024 GERD (gastroesophageal reflux disease) 10/23/2024 Morbid obesity (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) 10/23/2024 PAST SURGICAL HISTORY Procedure Laterality Date PAST SURGICAL HISTORY OF 2010 cholecystectomy PAST SURGICAL HISTORY OF hand surgery PAST SURGICAL HISTORY OF circumcision FAMILY HISTORY Problem Relation Age of Onset Anesthesia No Family History Social History Tobacco Use Smoking status: Never Passive exposure: Past Smokeless tobacco: Never Substance Use Topics Alcohol use: Yes Comment: rare Drug use: Never Prior to Admission medications as of 10/23/24 1109 Medication Sig Last Dose Taking hydrOXYzine pamoate (VISTARIL) 50 mg capsule Take 50 mg by mouth. Yes PARoxetine (PAXIL) 20 mg tablet Take 20 mg by mouth. Yes allopurinol (ZYLOPRIM) 100 mg tablet Take 100 mg by mouth once daily. Yes folic acid 1 mg tablet Take 1 mg by mouth once daily. Yes furosemide (LASIX) 40 mg tablet Take 40 mg by mouth once daily. Yes omeprazole (PRILOSEC) 40 mg capsule Take 40 mg by mouth once daily. Yes midodrine (PROAMATINE) 2.5 mg tablet Take 2.5 mg by mouth once daily. Yes thiamine (VITAMIN B-1) 100 mg tablet Take 100 mg by mouth once daily. Yes potassium chloride ER (KLOR-CON) 20 mEq tablet Take 20 mEq by mouth once daily. Yes QUEtiapine (SEROQUEL) 25 mg tablet Take 25 mg by mouth daily at bedtime. Yes QUEtiapine (SEROQUEL) 200 mg tablet Take 200 mg by mouth daily at bedtime. Yes ferrous sulfate (IRON) 325 mg (65 mg iron) tablet Take 325 mg by mouth once daily. Yes simethicone/sod bicarb/tta (SODIUM BICARB-TARTARIC ACID ORAL) Take 1,300 mg by mouth once daily. Yes atorvastatin (LIPITOR) 20 mg tablet Take 20 mg by mouth once daily. Yes magnesium oxide 400 mg magnesium tab Take 400 mg by mouth once daily. Yes valbenazine (INGREZZA) 60 mg capsule Take 60 mg by mouth once daily. Yes insulin regular, human (HUMULIN R U-500, CONC, INSULIN SUBCUTANEOUS) Inject subcutaneously. Sliding scale 30 to 50 units Yes dulaglutide (TRULICITY SUBCUTANEOUS) Inject subcutaneously one time a week. Mondays Yes No medication comments found. ALLERGIES No Known Allergies Objective PHYSICAL EXAM: General: alert and oriented and morbidly obese. Pertinent negatives noted - not distressed. Skin: normal color, no rash or lesions. HEENT: pupils equal round. Pertinent negatives noted - no carotid bruit. Cardiovascular: regular rate and rhythm, normal S1 and S2, no rub, murmurs, or gallop. Respiratory: normal breath sounds, no wheezes or crackles. Abdomen: Extremities: no deformity, no edema or tenderness, no joint swelling or clubbing. Neurological: normal cognition and motor skills. PAIN ASSESSMENT: VITALS: BP 124/82 Pulse 74 Temp (Src) 97.6 (Temporal) Ht 6' 3 (1.91m) Wt 323 lb 3.1 oz (146.6kg) SpO2 96% BMI 40.40 kg/(m^2). Diagnostic tests reviewed for today's visit: Lab Value Units Date High Low HB No results within date range. HCT No results within date range. WBC No results within date range. PLT No results within date range. NA No results within date range. K No results within date range. GLUC No results within date range. BUN No results within date range. CREAT No results within date range. PTSEC No results within date range. INR No results within date range. APTT No results within date range. ALT No results within date range. AST No results within date range. TBILI No results within date range. TSH No results within date range. Lab Value Units Date High Low HCGQT No results within date range. UHCG No results within date range. HCG, BODY* No results within date range. Lab Value Units Date High Low ABORHD No results within date range. ABSCREEN No results within date range. Hemoglobin A1C (%) Date Value 06/15/2024 7.1 Recent Results (from the past 8760 hours) ECG COMPLETE Collection Time: 10/23/24 12:00 PM Result Value Ventricular Rate 72 Atrial Rate 72 P-R Interval 186 QRS Duration 96 QT Interval 410 QTC Calculation (Bazett) 448 Calculated P Thoreau 67 Calculated R Thoreau -3 Calculated T Thoreau 24 Impression NORMAL SINUS RHYTHM NORMAL ECG No results found for this or any previous visit (from the past 00630 hours). Echocardiogram 08/30/2022: CONCLUSION: 1. Mild concentric left ventricular hypertrophy with normal ventricular systolic function. LVEF is 55 to 60%. 2. Normal right ventricular size and systolic function. 3. No significant valvular dysfunction. 4. Mildly dilated ascending aorta and aortic root. 5. Unable to assess right-sided pressures due to lack of measurable tricuspid regurgitation. Instructions Given to Patient: Instructions located in the after visit summary. Patient given verbal and written preop instructions and voices comprehension and compliance. SIGNATURE: Cintia Salinas PA-C PATIENT NAME: Steven Walden DATE: October 23, 2024 TIME: 10:56 AM PAGER/CONTACT #: T [facility] 10-23-2024 History and physical note Images from the original note were not included. [facility] HISTORY AND PHYSICAL EXAMINATION SERVICE DATE: 10/23/2024 SERVICE TIME: 12:54 PM PRIMARY CARE PHYSICIAN: No primary care provider on file. Assessment Patient has the following medical conditions which may affect sada-operative course: GERD (gastroesophageal reflux disease) H/o duodenal ulcers. On Prilosec. Type 2 diabetes mellitus with kidney complication, with long-term current use of insulin (HCC) On Trulicity, Humulin R. FBS 140s HgA1C 7.0 on 08/09/2024. Morbid obesity ([facility]) Body mass index is 40.4 kg/m . On Trulicity, advised patient to stop 7 days prior to surgery. SHADE (obstructive sleep apnea) Compliant with CPAP. Myocardial bridge ([facility]) Cardiac cath with normal coronary arteries with mid LAD myocardial bridging in 2017. Follows with cardiology, last visit 02/29/2024. Orthostatic hypotension On midodrine. Denies syncope. BP 124/82 in office today. Follows with cardiology, last visit 02/29/2024. Denies new or worsening symptoms. CKD (chronic kidney disease) stage 4, GFR 15-29 ml/min ([facility]) H/o DAISY requiring dialysis temporarily. Now with CKD stage 4 per patient. Follows with nephrology. BMP pending. Anxiety Severe anxiety, on Paxil, hydroxyzine, Seroquel. Tardive dyskinesia On Ingrezza. Follows with neurology. Ascending aorta dilatation Mildly dilated ascending aorta and aortic root 4.0 cm on 08/30/2022. ANESTHESIA FINDINGS: Intubation History: No history of difficult intubation Significant Anesthesia Considerations: hard stick - has better results with hand veins. Has needed US guidance once. potential difficult IV/vein access Airway History: No history of difficult airway Coles Activity Status Index: METS: Walk indoors, such as around the house (1.75 METs) Do light work around the house, such as dusting or washing dishes (2.70 METs) Take care of self; that is eating, dressing, bathing, using the toilet (2.75 METs) Climb a flight of stairs or walk up a hill (5.50 METs) DASI Score: 12.7 (Winded with walking long distances, housework. Has been going on for years, denies worsening. Able to climb one flight of stairs without symptoms.) Patient denies any chest pain or undue shortness of breath with the above physical activity. Clinical Frailty Scale: 3. Well, with treated comorbid disease STOP-Bang Score: BMI greater than 35 kg/m^2 Patient over 50 years old Has a large neck Male patient STOP-Bang Score: 4 (SHADE uses CPAP. ) [id number] Score: Diabetes history: Yes [id number] Score: I - PHYSICAL EVALUATION AIRWAY Patient intubated: No. Tracheostomy tube not present Mallampati: IV. TM distance: >3 FB. Neck ROM: full ROM without neurological symptoms. Mouth opening: adequate. Short neck: yes. Thick neck: yes Lip Bite Test: I DENTAL Dental findings: broken tooth. Additional comments: Crowns Broken molar . II - ANESTHESIA PLAN Anesthetic plan additional comments: *PACC/TCI - anesthesia choice. Beta Sapna Monitoring Plan Post Procedure Analgesic Plan Prepared for Surgery: optimally prepared for surgery, pending [see comment]. Labs and EKG. CONSULTS: Patient does not require consults for optimization at this time Planned Anesthetic: anesthesia choice The Following Tests/Procedures Have Been Initiated: Labs and EKG per surgical service. REASON FOR VISIT: Steven Walden is a 64 year old male who is scheduled for Procedure(s): Excision, excessive skin and subcutaneous tissue (includes lipectomy); abdomen, infraumbilical panniculectomy (N/A) ADJACENT TISSUE TRANSFER / REARRANGEMENT ABDOMEN 30.1-60.0 SQCM (N/A) SCROTOPLASTY COMPLICATED (Bilateral) ADJACENT TISSUE TRANSFER / REARRANGEMENT ABDOMEN ADD'L < OR =30 SQCM SQCM (N/A) PLASTIC OP ON PENIS TO CORRECT ANGULATION (N/A) SPLIT-THICKNESS AUTOGRAFT MALE GENITALIA <100 SQ CM (Pending) at the request of Van Baron MD for consultation. My final recommendation will be communicated back to the requesting physician by way of shared medical record or letter. Subjective The patient has the following: COVID-19 Immunization Status Current Care Gaps Covid-19 Vaccine ( season) Overdue since 12/11/2023 09/04/2020 Imm Admin: COVID-19 vaccine (Talk[facility]) CHIEF COMPLAINT: Pre-op evaluation HPI: Patient is a 64 year old year old male who is scheduled for above case on 11/06/2024. Patient has buried penis causing difficulty with urination. He had a slit procedure by his local urologist which temporarily improved urine flow but the penis has retracted again. Denies any fevers, chills, nausea, vomiting, SOB or chest pain. REVIEW OF SYSTEMS: General: Negative for: weight loss >10% of BW in last 6 months, malaise and fever. Neurological: Negative for: delirium, dementia, headaches, seizures, TIA and strokes. Respiratory: Positive for: obstructive sleep apnea and CPAP/BiPAP compliant. Negative for: asthma, COPD, current cough, dyspnea, home oxygen, pneumonia within 6 weeks and tobacco use. Cardiovascular: Orthostatic hypotension Negative for: angina, arrhythmia, CAD, chest pain, CHF, DVT/PE, hypertension, recent PR, murmur/valvular heart disease and PVD. GI: Positive for: GERD Negative for: abdominal pain, hepatitis, inflammatory bowel disease, liver disease and ETOH >2 drinks/day. : See HPI. Positive for: renal failure (Stage 4). Negative for: on dialysis, dysuria, hematuria and nephrolithiasis. Endocrine: Positive for: diabetes mellitus. Negative for: hyperthyroidism, hypothyroidism and steroid for chronic problem. Hematology: Negative for: anemia, thrombocytopenia and chronic anti-coagulation/platelet meds. Oncology: No history of CA metastasis, chemo within 30 days, or radiotherapy within 90 days. No history of oncological symptoms or problems. Psych: Positive for: anxiety and depression. Musculoskeletal: Negative for joint pain or swelling, back pain or muscle pain. Skin: See HPI. PAST MEDICAL HISTORY Diagnosis Date Anxiety 10/23/2024 Ascending aorta dilatation 10/23/2024 CKD (chronic kidney disease) stage 4, GFR 15-29 ml/min ([facility]) 10/23/2024 GERD (gastroesophageal reflux disease) 10/23/2024 Morbid obesity (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) 10/23/2024 PAST SURGICAL HISTORY Procedure Laterality Date PAST SURGICAL HISTORY OF 2010 cholecystectomy PAST SURGICAL HISTORY OF hand surgery PAST SURGICAL HISTORY OF circumcision FAMILY HISTORY Problem Relation Age of Onset Anesthesia No Family History Social History Tobacco Use Smoking status: Never Passive exposure: Past Smokeless tobacco: Never Substance Use Topics Alcohol use: Yes Comment: rare Drug use: Never Prior to Admission medications as of 10/23/24 1109 Medication Sig Last Dose Taking hydrOXYzine pamoate (VISTARIL) 50 mg capsule Take 50 mg by mouth. Yes PARoxetine (PAXIL) 20 mg tablet Take 20 mg by mouth. Yes allopurinol (ZYLOPRIM) 100 mg tablet Take 100 mg by mouth once daily. Yes folic acid 1 mg tablet Take 1 mg by mouth once daily. Yes furosemide (LASIX) 40 mg tablet Take 40 mg by mouth once daily. Yes omeprazole (PRILOSEC) 40 mg capsule Take 40 mg by mouth once daily. Yes midodrine (PROAMATINE) 2.5 mg tablet Take 2.5 mg by mouth once daily. Yes thiamine (VITAMIN B-1) 100 mg tablet Take 100 mg by mouth once daily. Yes potassium chloride ER (KLOR-CON) 20 mEq tablet Take 20 mEq by mouth once daily. Yes QUEtiapine (SEROQUEL) 25 mg tablet Take 25 mg by mouth daily at bedtime. Yes QUEtiapine (SEROQUEL) 200 mg tablet Take 200 mg by mouth daily at bedtime. Yes ferrous sulfate (IRON) 325 mg (65 mg iron) tablet Take 325 mg by mouth once daily. Yes simethicone/sod bicarb/tta (SODIUM BICARB-TARTARIC ACID ORAL) Take 1,300 mg by mouth once daily. Yes atorvastatin (LIPITOR) 20 mg tablet Take 20 mg by mouth once daily. Yes magnesium oxide 400 mg magnesium tab Take 400 mg by mouth once daily. Yes valbenazine (INGREZZA) 60 mg capsule Take 60 mg by mouth once daily. Yes insulin regular, human (HUMULIN R U-500, CONC, INSULIN SUBCUTANEOUS) Inject subcutaneously. Sliding scale 30 to 50 units Yes dulaglutide (TRULICITY SUBCUTANEOUS) Inject subcutaneously one time a week. Mondays Yes No medication comments found. ALLERGIES No Known Allergies Objective PHYSICAL EXAM: General: alert and oriented and morbidly obese. Pertinent negatives noted - not distressed. Skin: normal color, no rash or lesions. HEENT: pupils equal round. Pertinent negatives noted - no carotid bruit. Cardiovascular: regular rate and rhythm, normal S1 and S2, no rub, murmurs, or gallop. Respiratory: normal breath sounds, no wheezes or crackles. Abdomen: Extremities: no deformity, no edema or tenderness, no joint swelling or clubbing. Neurological: normal cognition and motor skills. PAIN ASSESSMENT: VITALS: BP 124/82 Pulse 74 Temp (Src) 97.6 (Temporal) Ht 6' 3 (1.91m) Wt 323 lb 3.1 oz (146.6kg) SpO2 96% BMI 40.40 kg/(m^2). Diagnostic tests reviewed for today's visit: Lab Value Units Date High Low HB No results within date range. HCT No results within date range. WBC No results within date range. PLT No results within date range. NA No results within date range. K No results within date range. GLUC No results within date range. BUN No results within date range. CREAT No results within date range. PTSEC No results within date range. INR No results within date range. APTT No results within date range. ALT No results within date range. AST No results within date range. TBILI No results within date range. TSH No results within date range. Lab Value Units Date High Low HCGQT No results within date range. UHCG No results within date range. HCG, BODY* No results within date range. Lab Value Units Date High Low ABORHD No results within date range. ABSCREEN No results within date range. Hemoglobin A1C (%) Date Value 06/15/2024 7.1 Recent Results (from the past 8760 hours) ECG COMPLETE Collection Time: 10/23/24 12:00 PM Result Value Ventricular Rate 72 Atrial Rate 72 P-R Interval 186 QRS Duration 96 QT Interval 410 QTC Calculation (Bazett) 448 Calculated P Thoreau 67 Calculated R Thoreau -3 Calculated T Thoreau 24 Impression NORMAL SINUS RHYTHM NORMAL ECG No results found for this or any previous visit (from the past 25262 hours). Echocardiogram 08/30/2022: CONCLUSION: 1. Mild concentric left ventricular hypertrophy with normal ventricular systolic function. LVEF is 55 to 60%. 2. Normal right ventricular size and systolic function. 3. No significant valvular dysfunction. 4. Mildly dilated ascending aorta and aortic root. 5. Unable to assess right-sided pressures due to lack of measurable tricuspid regurgitation. Instructions Given to Patient: Instructions located in the after visit summary. Patient given verbal and written preop instructions and voices comprehension and compliance. SIGNATURE: Cintia Salinas PA-C PATIENT NAME: Steven Walden DATE: October 23, 2024 TIME: 10:56 AM PAGER/CONTACT #: documented in this encounter [facility] 09-04-2024 Telephone encounter Note Patient notified [facility] 09-04-2024 Miscellaneous Notes Patient notified Please let pt know that his recent labs showed his good cholesterol was low and Triglycerides were mildly elevated. Encourage healthy diet. Limit simple sugars and carbohydrates. Otherwise labs looked good. documented in this encounter [facility] 09-04-2024 Telephone encounter Note Please let pt know that his recent labs showed his good cholesterol was low and Triglycerides were mildly elevated. Encourage healthy diet. Limit simple sugars and carbohydrates. Otherwise labs looked good. [facility] 08-28-2024 History of Present illness Narrative Images from the original note were not included. Subjective Patient ID: Steven Walden is a 64 y.o. male who presents for Medicare Annual Wellness Visit Initial. HPI Medicare Wellness Over the past 2 weeks, how often have you been bothered by any of the following problems? Little interest or pleasure in doing things: Not at all Feeling down, depressed, or hopeless: Not at all (currently on medication) Patient Health Questionnaire-2 Score: 0 Over the past 2 weeks, how often have you been bothered by any of the following problems? Trouble falling or staying asleep, or sleeping too much: Not at all Feeling tired or having little energy: Not at all Poor appetite or overeating: Not at all Feeling bad about yourself - or that you are a failure or have let yourself or your family down: Not at all Trouble concentrating on things, such as reading the newspaper or watching television: Not at all Moving or speaking so slowly that other people could have noticed? Or the opposite - being so fidgety or restless that you have been moving around a lot more than usual.: Not at all Thoughts that you would be better off or hurting yourself in some way: Not at all Patient Health Questionnaire-9 Score: 0 Love Fall Risk History of Falling, Immediate or Within 3 Months: No Health Risk Assessment Form Do you need help eating, bathing, using the toilet, dressing, or getting around your home?: No Can you prepare your own meals?: Yes Can you do your own housework without help?: Yes Can you shop for groceries or clothes without help?: No Do you exercise for about 20 minutes 3 or more days a week?: No How confident are you that you can control and manage most of your health problems?: Somewhat confident Can you mange your money, credit cards and accounts, pay bills and taxes?: No Vision Screening: Yes, no gross abnormalities Hearing Screening: Yes, no gross abnormalities Cognitive Screening Self Assessment: No overt cognitive deficiency is apparent by direct observation Three Word Registration: Apple, Watch, Prabha Clock Drawing: Normal Clock - 2 Three Word Recall: All 3 words correct - 3 Total Score (0-5 Points): 5 Pain Assessment Pain Score: 2 Advance Care Planning Do you have a living will?: Yes Do you have a medical power of compliance attorney?: No Current Outpatient Medications on File Prior to Visit Medication Sig Dispense Refill allopurinol (Zyloprim) 100 MG tablet Take 1 tablet (100 mg) by mouth in the morning. 90 tablet 3 atorvastatin (Lipitor) 20 MG tablet Take 1 tablet (20 mg) by mouth in the morning. 100 tablet 4 Dulaglutide (Trulicity) 3 MG/0.5ML solution auto-injector Inject 3 mg under the skin 1 (one) time per week 6 mL 1 ferrous sulfate 325 (65 Fe) MG tablet Take 1 tablet by mouth in the morning and 1 tablet before bedtime. folic acid (Folvite) 1 MG tablet Take 1 tablet by mouth Daily furosemide (Lasix) 40 MG tablet Take 40 mg by mouth Daily hydrOXYzine pamoate (Vistaril) 50 MG capsule Take 1 capsule (50 mg) by mouth 2 (two) times a day as needed for itching or anxiety 60 capsule 1 insulin pen needle (BD Pen Needle Micro U/F) 32G x 6 mm misc USE DIRECTED UNDER THE SKIN TWICE DAILY 100 each 3 insulin regular (HumuLIN R U-500 KWIKPEN) 500 UNIT/ML CONCENTRATED injection Inject 50 Units under the skin in the morning and 50 Units in the evening and 50 Units before bedtime. 50-80 units BID. 27 mL 1 Lancets (OneTouch Delica Plus [id number]) misc LORazepam (Ativan) 1 MG tablet Take 0.5 tablets (0.5 mg) by mouth every 8 (eight) hours if needed for anxiety 15 tablet 0 magnesium oxide (Mag-Ox) 400 (240 Mg) MG tablet Take 1 tablet (400 mg) by mouth Daily 90 tablet 3 midodrine (Proamatine) 2.5 MG tablet Take 2.5 mg by mouth Daily Daily in the morning, may take second dose if dizzy and BP is low omeprazole (PriLOSEC) [address] capsule Take 1 capsule (40 mg) by mouth in the morning. Do not crush or chew.. 90 capsule 3 [employer] Verio test strip USE TO TEST 3 TIMES A DAY 300 strip 2 PARoxetine (Paxil) 40 MG tablet TAKE 1 TABLET BY MOUTH EVERY DAY IN THE MORNING (Patient taking differently: Take 20 mg by mouth in the morning.) 90 tablet 0 potassium chloride CR (K-Tab) 20 MEQ ER tablet Take 20 mEq by mouth Daily QUEtiapine (SEROquel) 200 MG tablet Take 1 tablet (200 mg) by mouth at bedtime 30 tablet 2 QUEtiapine (SEROquel) 25 MG tablet Take 1 tablet (25 mg) by mouth 2 (two) times a day as needed (Anxiety) 60 tablet 2 sodium bicarbonate 650 MG tablet Take 650 mg by mouth in the morning and 650 mg before bedtime. thiamine (Vitamin B-1) 100 MG tablet Take 1 tablet (100 mg) by mouth Daily 90 tablet 3 Valbenazine Tosylate (Ingrezza) 60 MG capsule Take 60 mg by mouth Daily 90 capsule 3 No current facility-administered medications on file prior to visit. I have reviewed and reconciled the history and medication list with the patient today. No Known Allergies Social History Tobacco Use Smoking status: Never Smokeless tobacco: Never Vaping Use Vaping status: Never Used Substance Use Topics Alcohol use: Not Currently Comment: no caffiene; Drug use: Never Family History Problem Relation Name Age of Onset Other (Other) Mother Pacemaker MD2 Heart disease Mother Other (Other) Father Lungs deformed Depression Father Stroke Father Obesity Sister half sister Diabetes Sister half sister Kidney cancer Sister half sister Past Medical History: Diagnosis Date Acute idiopathic gout of left foot 12/05/2022 Acute kidney injury superimposed on CKD ([facility]) 05/28/2022 Acute respiratory alkalosis 07/19/2023 Adjustment disorder with depressed mood ([facility]) 08/10/2022 Anxiety Atrophy of right kidney 05/15/2018 Cholecystitis COVID 03/31/2022 CPAP (continuous positive airway pressure) dependence Depression ([facility]) Diabetes mellitus type 2, controlled, without complications Diverticulosis Encounter for long-term (current) use of high-risk medication Finger fracture, right 12/29/2021 5th digit fracture Gout H/O CT scan of abdomen 07/15/2022 Bilateral non obstructing renal calculi.Left double Jejunum ureter stennt is no longer present at the left and urethra stone is no longer visualize. History of being hospitalized 07/19/2022 [facility] - syncope after dalysis History of being hospitalized 05/27/2022 Acute Renal Failure History of being hospitalized 04/2018 Cellulitis and sepsis @ [facility] History of being hospitalized 06/[address] [facility] x7 [address] [facility] History of [place] [facility] [place] of psychiatric hospitalization May 2023 [facility] 1 week Hx of complete electrocardiogram 08/11/2016 echo EF 70% LV wall thickness is mildy increased. No Regional wall Motion abnormality Hx of CT scan of abdomen 02/01/2017 Non-obstructing right Nephrolithiasis and right Renal atrophy Hx of CT scan of head 06/26/2022 No acute intrcraial abnormality Hx of electrocardiogram 06/09/2021 Normal Ventricular LVEF is 65%-70%.No significant valvular dysfunction Normal right sided pressures, mildly diated ascending aorts. No pericardial effusion. Hypertension ([facility]) Kidney failure Kidney stones LVH (left ventricular hypertrophy) CONCLUSION: 1. Mild concentric left ventricular hypertrophy with normal ventricular systolic function. LVEF is 55 to 60%. 2. Normal right ventricular size and systolic function. 3. No significant valvular dysfunction. 4. Mildly dilated ascending aorta and aortic root. 5. Unable to assess right-sided pressures due to lack of measurable tricuspid regurgitation. Major depressive disorder, recurrent, moderate ([facility]) 06/07/2022 Metabolic acidosis 06/29/2022 Mixed hyperlipidemia (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) Phimosis 04/19/2024 Pyelonephritis of left kidney 06/20/2022 Renal atrophy Sleep apnea in adult 09/08/2022 stones Vitamin D deficiency Past Surgical History: Procedure Laterality Date CARDIAC CATHETERIZATION 08/2016 CHOLECYSTECTOMY 2010 COLONOSCOPY 06/2018 ESOPHAGOGASTRODUODENOSCOPY 06/2018 EYE EXAM 2013 EYE EXAM 2012 FINGER FRACTURE SURGERY Right 5thdigit; pins and plates at [facility] [place] CYSTOSCOPY,INSERT URETHRAL STENT 05/2022 TUNNEL DIALYSIS CATHETER EXCHANGE 06/28/2022 WISDOM TOOTH EXTRACTION 1980 Visit Vitals BP 102/74 Pulse 86 Resp 16 Ht 6' 3 Wt 316 lb 9.6 oz SpO2 97% BMI 39.57 kg/m Smoking Status Never BSA 2.76 m Review of Systems Constitutional: Negative for chills, fatigue and fever. HENT: Negative for congestion, ear pain, rhinorrhea, sinus pressure and sore throat. Eyes: Negative for pain, discharge and redness. Respiratory: Negative for cough, shortness of breath and wheezing. Cardiovascular: Negative for chest pain, palpitations and leg swelling. Gastrointestinal: Negative for abdominal pain, constipation, diarrhea, nausea and vomiting. Genitourinary: Negative for dysuria, frequency and urgency. Musculoskeletal: Negative for arthralgias and back pain. Skin: Negative for rash. Neurological: Negative for dizziness, numbness and headaches. Psychiatric/Behavioral: Negative for confusion, dysphoric mood and sleep disturbance. Objective Physical Exam Constitutional: General: He is not in acute distress. Appearance: He is obese. HENT: Head: Normocephalic and atraumatic. Right Ear: Tympanic membrane and ear canal normal. Left Ear: Tympanic membrane and ear canal normal. Nose: Nose normal. Mouth/Throat: Mouth: Mucous membranes are moist. Pharynx: Oropharynx is clear. Eyes: General: No scleral icterus. Extraocular Movements: Extraocular movements intact. Conjunctiva/sclera: Conjunctivae normal. Pupils: Pupils are equal, round, and reactive to light. Cardiovascular: Rate and Rhythm: Normal rate and regular rhythm. Pulses: Normal pulses. Pulmonary: Effort: Pulmonary effort is normal. Breath sounds: Normal breath sounds. No wheezing, rhonchi or rales. Abdominal: General: Abdomen is protuberant. Bowel sounds are normal. There is no distension. Palpations: Abdomen is soft. Tenderness: There is no abdominal tenderness. There is no guarding. Musculoskeletal: General: No swelling, tenderness, deformity or signs of injury. Normal range of motion. Cervical back: Normal range of motion. No tenderness. Right lower leg: Edema (Mild, non-pitting) present. Left lower leg: Edema (Trace, non-pitting) present. Lymphadenopathy: Cervical: No cervical adenopathy. Skin: General: Skin is warm and dry. Findings: No erythema. Neurological: General: No focal deficit present. Mental Status: He is alert and oriented to person, place, and time. Cranial Nerves: No cranial nerve deficit. Sensory: Sensation is intact. Motor: Tremor present. No weakness. Coordination: Coordination normal. Gait: Gait normal. Psychiatric: Mood and Affect: Affect is flat. Speech: Speech normal. Behavior: Behavior is withdrawn. Thought Content: Thought content normal. Judgment: Judgment normal. Comments: Limited eye contact, though improved today. Assessment & Plan 1. Medicare annual wellness visit, initial (Primary) Reviewed all relevant preventative screenings with the patient in detail. Medicare Wellness form completed and will be scanned into patient's chart. All needed testing was ordered. Will continue with yearly Medicare Wellness exams. - Lipid panel - PSA - HEPATITIS C AB W/RFL RNS, PCR W/RFL GENOTYPE,LIPA - zoster vaccine-recombinant adjuvanted (Shingrix) 50 MCG/0.5ML vaccine; Inject 0.5 mL (50 mcg) into the shoulder, thigh, or buttocks 1 (one) time for 1 dose Give two doses 2-6 months apart. Dispense: 1 mL; Refill: 0 2. ACP (advance care planning) Patient willing to discuss ACP. Pt has Living Will in place. 3. Type 2 diabetes mellitus with diabetic neuropathic arthropathy, with long-term current use of insulin (CMS/HCC) The patient is seeing a medical billing representative for this condition, treatment is deferred to that specialist. Correspondence from that specialist and any available testing were reviewed during today's visit. - Lipid panel 4. Primary hypertension (CMS/HCC) The patient is seeing a medical billing representative for this condition, treatment is deferred to that specialist. Correspondence from that specialist and any available testing were reviewed during today's visit. 5. Screening PSA (prostate specific antigen) Will obtain PSA with today's fasting labs. Will continue to monitor yearly. - PSA 6. Mixed hyperlipidemia (CMS/HCC) Will check cholesterol with today's fasting labs. Continue Atorvastatin as prescribed. - Lipid panel 7. Other problems related to lifestyle Patient was born in [birth year]. He is agreeable to Hep C screening. - HEPATITIS C AB W/RFL RNS, PCR W/RFL GENOTYPE,LIPA 8. Stage 5 chronic kidney disease (CMS/HCC) The patient is seeing a medical billing representative for this condition, treatment is deferred to that specialist. Correspondence from that specialist and any available testing were reviewed during today's visit. 9. Dysthymia (CMS/HCC) The patient is seeing a medical billing representative for this condition, treatment is deferred to that specialist. Correspondence from that specialist and any available testing were reviewed during today's visit. 10. Type 2 diabetes mellitus with diabetic polyneuropathy, with long-term current use of insulin ([facility]) The patient is seeing a medical billing representative for this condition, treatment is deferred to that specialist. Correspondence from that specialist and any available testing were reviewed during today's visit. 11. Atrophy of right kidney The patient is seeing a medical billing representative for this condition, treatment is deferred to that specialist. Correspondence from that specialist and any available testing were reviewed during today's visit. 12. Bandemia This is a chronic medical condition that is stable since last assessment. Continue to monitor with routine labs. 13. Calculus of ureter The patient is seeing a medical billing representative for this condition, treatment is deferred to that specialist. Correspondence from that specialist and any available testing were reviewed during today's visit. 14. Chronic gouty arthritis This is a chronic medical condition that is stable since last assessment. No changes in treatment are suggested at this time. Continue Allopurinol as prescribed. 15. Chest pain, unspecified type The patient is seeing a medical billing representative for this condition, treatment is deferred to that specialist. Correspondence from that specialist and any available testing were reviewed during today's visit. 16. Chronic idiopathic constipation This is a chronic medical condition that is stable since last assessment. OTC prn, stay hydrated. 17. Coronary-myocardial bridge ([facility]/HCC) The patient is seeing a medical billing representative for this condition, treatment is deferred to that specialist. Correspondence from that specialist and any available testing were reviewed during today's visit. 18. Debility This is a chronic medical condition that is stable since last assessment. No changes suggested at this time. 19. Dependent on hemodialysis ([facility]/HCC) The patient is seeing a medical billing representative for this condition, treatment is deferred to that specialist. Correspondence from that specialist and any available testing were reviewed during today's visit. 20. Dizziness The patient is seeing a medical billing representative for this condition, treatment is deferred to that specialist. Correspondence from that specialist and any available testing were reviewed during today's visit. 21. Duodenal ulcer This is a chronic medical condition that is stable since last assessment. No changes are suggested at this time. 22. Dyspnea on exertion The patient is seeing a medical billing representative for this condition, treatment is deferred to that specialist. Correspondence from that specialist and any available testing were reviewed during today's visit. 23. Localized edema This is a chronic medical condition that is stable since last assessment. No changes in treatment are suggested at this time. Continue Furosemide and Potassium. 24. Emphysematous cystitis The patient is seeing a medical billing representative for this condition, treatment is deferred to that specialist. Correspondence from that specialist and any available testing were reviewed during today's visit. 25. History of anemia of chronic disease The patient is seeing a medical billing representative for this condition, treatment is deferred to that specialist. Correspondence from that specialist and any available testing were reviewed during today's visit. 26. BRITTANY (generalized anxiety disorder) ([facility]) The patient is seeing a medical billing representative for this condition, treatment is deferred to that specialist. Correspondence from that specialist and any available testing were reviewed during today's visit. 27. History of hydronephrosis The patient is seeing a medical billing representative for this condition, treatment is deferred to that specialist. Correspondence from that specialist and any available testing were reviewed during today's visit. 28. Urinary tract obstruction by kidney stone The patient is seeing a medical billing representative for this condition, treatment is deferred to that specialist. Correspondence from that specialist and any available testing were reviewed during today's visit. 29. Hyponatremia This is a chronic medical condition that is stable since last assessment. Will continue to monitor with routine labs. 30. Primary insomnia The patient is seeing a medical billing representative for this condition, treatment is deferred to that specialist. Correspondence from that specialist and any available testing were reviewed during today's visit. 31. Lymphedema This is a chronic medical condition that is stable since last assessment. No changes in treatment are suggested at this time. Continue Furosemide and Potassium. 32. [facility] (current) use of insulin ([facility]/HCC) The patient is seeing a medical billing representative for this condition, treatment is deferred to that specialist. Correspondence from that specialist and any available testing were reviewed during today's visit. 33. Microalbuminuric diabetic nephropathy ([facility]) The patient is seeing a medical billing representative for this condition, treatment is deferred to that specialist. Correspondence from that specialist and any available testing were reviewed during today's visit. 34. Migraine without aura, not refractory ([facility]) This is a chronic medical condition that is stable since last assessment. No changes are suggested at this time. 35. Orthostatic hypotension The patient is seeing a medical billing representative for this condition, treatment is deferred to that specialist. Correspondence from that specialist and any available testing were reviewed during today's visit. 36. Peripheral vascular disease ([facility]) The patient is seeing a medical billing representative for this condition, treatment is deferred to that specialist. Correspondence from that specialist and any available testing were reviewed during today's visit. 37. Type 2 diabetes mellitus with hyperglycemia, with long-term current use of insulin ([facility]) The patient is seeing a medical billing representative for this condition, treatment is deferred to that specialist. Correspondence from that specialist and any available testing were reviewed during today's visit. 38. Obstructive sleep apnea syndrome Patient is compliant with CPAP usage and perceives benefit from treatment. Treatment has been effective in controlling the patient's symptoms of Sleep Apnea. Will continue to monitor with routine follow up appointments. 39. Tremor The patient is seeing a medical billing representative for this condition, treatment is deferred to that specialist. Correspondence from that specialist and any available testing were reviewed during today's visit. 40. Syncope, unspecified syncope type The patient is seeing a medical billing representative for this condition, treatment is deferred to that specialist. Correspondence from that specialist and any available testing were reviewed during today's visit. 41. Panic attack ([facility]) The patient is seeing a medical billing representative for this condition, treatment is deferred to that specialist. Correspondence from that specialist and any available testing were reviewed during today's visit. 42. Tardive dyskinesia The patient is seeing a medical billing representative for this condition, treatment is deferred to that specialist. Correspondence from that specialist and any available testing were reviewed during today's visit. 43. Confusion The patient is seeing a medical billing representative for this condition, treatment is deferred to that specialist. Correspondence from that specialist and any available testing were reviewed during today's visit. 44. Hyperparathyroid bone disease (CMS/HCC) The patient is seeing a medical billing representative for this condition, treatment is deferred to that specialist. Correspondence from that specialist and any available testing were reviewed during today's visit. 45. Folate deficiency The patient is seeing a medical billing representative for this condition, treatment is deferred to that specialist. Correspondence from that specialist and any available testing were reviewed during today's visit. 46. Hypokalemia This is a chronic medical condition that is stable since last assessment. No changes in treatment are suggested at this time. Continue Potassium supplement as prescribed. 47. Major depressive disorder, recurrent severe without psychotic features (HCC) (CMS/HCC) The patient is seeing a medical billing representative for this condition, treatment is deferred to that specialist. Correspondence from that specialist and any available testing were reviewed during today's visit. 48. Type 2 diabetes mellitus with other specified complication, with long-term current use of insulin The patient is seeing a medical billing representative for this condition, treatment is deferred to that specialist. Correspondence from that specialist and any available testing were reviewed during today's visit. 49. Nephrolithiasis The patient is seeing a medical billing representative for this condition, treatment is deferred to that specialist. Correspondence from that specialist and any available testing were reviewed during today's visit. 50. BPH with urinary obstruction The patient is seeing a medical billing representative for this condition, treatment is deferred to that specialist. Correspondence from that specialist and any available testing were reviewed during today's visit. 51. Type 2 diabetes mellitus with diabetic peripheral angiopathy without gangrene, with long-term current use of insulin ([facility]) The patient is seeing a medical billing representative for this condition, treatment is deferred to that specialist. Correspondence from that specialist and any available testing were reviewed during today's visit. 52. Nodule of kidney The patient is seeing a medical billing representative for this condition, treatment is deferred to that specialist. Correspondence from that specialist and any available testing were reviewed during today's visit. 53. Disorder of nervous system due to type 2 diabetes mellitus (CMS/HCC) The patient is seeing a medical billing representative for this condition, treatment is deferred to that specialist. Correspondence from that specialist and any available testing were reviewed during today's visit. 54. Nephrosclerosis, stage 1 through stage 4 or unspecified chronic kidney disease The patient is seeing a medical billing representative for this condition, treatment is deferred to that specialist. Correspondence from that specialist and any available testing were reviewed during today's visit. 55. Chronic kidney disease, stage 4 (severe) ([facility]) The patient is seeing a medical billing representative for this condition, treatment is deferred to that specialist. Correspondence from that specialist and any available testing were reviewed during today's visit. 56. Morbid (severe) obesity due to excess calories ([facility]) Encouraged portion control, decrease simple sugars and carbohydrates, gradually increase activity level. Aim for gradual steady weight loss. 57. Type 2 diabetes mellitus with stage 4 chronic kidney disease, with long-term current use of insulin ([facility]) The patient is seeing a medical billing representative for this condition, treatment is deferred to that specialist. Correspondence from that specialist and any available testing were reviewed during today's visit. 58. Anemia due to stage 4 chronic kidney disease ([facility]) The patient is seeing a medical billing representative for this condition, treatment is deferred to that specialist. Correspondence from that specialist and any available testing were reviewed during today's visit. 59. BMI 39.0-39.9,adult Encouraged portion control, decrease simple sugars and carbohydrates, gradually increase activity level. Aim for gradual steady weight loss. 60. Acquired buried penis The patient is seeing a medical billing representative for this condition, treatment is deferred to that specialist. Correspondence from that specialist and any available testing were reviewed during today's visit. 61. Phimosis The patient is seeing a medical billing representative for this condition, treatment is deferred to that specialist. Correspondence from that specialist and any available testing were reviewed during today's visit. 62. Need for vaccination Reviewed potential risks and benefits of the Shingrix vaccine. Advised it is a series of two injections, administered 2-6 months apart. Advised the vaccine decreases the likelihood that the patient will contract shingles, and if patient does contract shingles, the vaccine should help to decrease the intensity and duration of symptoms, as well as the potential for complications such as post-herpetic neuralgia. Prescription for Shingrix was sent to the patient's pharmacy. - zoster vaccine-recombinant adjuvanted (Shingrix) 50 MCG/0.5ML vaccine; Inject 0.5 mL (50 mcg) into the shoulder, thigh, or buttocks 1 (one) time for 1 dose Give two doses 2-6 months apart. Dispense: 1 mL; Refill: 0 Follow up in about 6 months (around 02/28/2025) for Hypertension. Ivanna Dean MSADRYAN, PADawoodC documented in this encounter [facility] 08-09-2024 History of Present illness Narrative Steven Walden is a 64 y.o. male Francisco Houser MD presents with chief complaint of Diabetes HPI: History of Present Illness The patient is a 64-year-old male who presents for evaluation of diabetes. He is currently on a regimen of U-500 insulin, administered at a dosage of 30 to 50 units twice daily. Additionally, he is taking Trulicity 3 mg once weekly. He has expressed a need for refills of these medications. Interim history: 04/2024 Follow-up visit on 05/10/2024, A1c 8.1, bg 96, on U-500 30-60 units bid, on Trulicity 3 mg weekly. GFR 33 ON 04/2024. Interim history: 12/2023 Follow-up visit on 01/05/2024, A1c 8.4, bg 277, on U-500 30-50 units bid, on Trulicity 3 mg weekly, meter 0-31-67 avg 200. Anxiety. Interim history: 08/2023 Follow-up visit on 09/08/2023, A1c 7.8, bg 221, on U-500 30-50 units bid, on Trulicity 3 mg weekly, meter 0-33-67 avg 208. anxiety +. lab cr 2.04, TC 167, TG 90 ,HDL 49, LDL 100, VIT D 20. Interim history: 03/2023. Follow-up visit on 03/16/2023, A1c 7.1, bg 226, on U-500 40-80 units bid, on Trulicity 3 mg weekly, meter 2-54-44 avg 175. very bad shape with shaking tremor Interim history: 11/2022. Follow-up visit on 12/01/2022 , A1c 8.4, bg 279, on U-500 60-80 units bid, on Trulicity 3 mg weekly, had new ESRD on HD off now, meter -32-67 avg 230 Interim history: 07/2022. Follow-up visit on 08/05/2022 , A1c 8.1, bg 292, off U-500 50 units tid. on Trulicity 3 mg weekly, had new ESRD on HD and they stop U-500 and started him on lantus 35 units only. Interim history: 06/2022. Follow-up visit on 06/17/2022 , U-500 50 units tid. Trulicity 3 mg weekly ( not sure still 0.75 in his log book), , bg 204, in the hospital they cut his U-500 and start him on farxia 10 mg and kreneda, meter 3-34-62 %, avg 192. Interim history: 04/2022. Follow-up visit on 04/21/2022 , U-500 150- 200 units tid. Trulicity 3 mg weekly, A1c in the office 7.8 , bg 108. Interim history: 11/2021. Follow-up visit on 11/30/2021, U-500 200 units tid. Trulicity 3 mg weekly, A1c in the office 7.8 , bg 140, meter 129-333 avg 234. lab TC 179, HDL 40 ,TG 155, LDL 108, CR 1.51, GFR 48, TSH 1.82, FT 0.94 (0.78-1.46). Interim history: 08/2021. Follow-up visit on 08/17/2021, U-500 200 units tid. truliciry 1.5 mg weekly, A1c in the office 9.8 , bg 138, meter 69-347 avg 192. Interim history: 05/2021. Follow-up visit on 06/08/2021, U-500 200 units tid. A1c in the office 10.2, bg 358, off metformin, off rybelsus not covered Interim history: 02/2021. Follow-up visit on 03/10/2021, U-500 200 units tid. A1c in the office 10.9, bg 321, off metformin, did not start rybelsus yet Interim history: 11/2020. Follow-up visit on 11/25/2020, U-500 200 units tid. A1c in the office 11, bg 268, he wants to stop metformin due to GI symptoms Interim history: 08/2020. Follow-up visit on 08/11/2020 He thinks that U-500 works better. he is on 150 units ac plus scale, last GFR 51 in , A1c in the office 12.2, bg 408 Interim history: 04/2020. Follow-up visit on 04/24/2020 He thinks that U-500 works better. he is on 150 units ac plus scale 1:5. Ozempic 1 mg. Labs still pending. Interim history: 01/2020. Follow-up visit on 01/17/2020 for CGM interpretation, average 237, 3% in low range, 16 in good range, 81 in high range. He thinks that U-500 works better. I told him to take 100 at breakfast, 100 at lunch, 125 plus scale 1:5. He used up to 150 twice a day and Ozempic 1 mg. Labs still pending. HPI: 12/2019 New Patient: 12/2019. New patient sent from Dr. Darion Randle for uncontrolled diabetes. A1c recently 13.2. He used to be on U-500 almost 50 units per pen, actual 3 times a day then switched to Levemir 100 twice a day, Humalog almost 60 twice a day so almost using 350 units daily plus Ozempic once weekly. Insurance does not cover , off metformin due to kidney issues and blood sugar in the office 367. He is morbidly obese. Body mass index greater than 46. He has some glaucoma and he has numbness and tingling in his feet. Denies coronary artery disease. SUBJECTIVE: MEDICATIONS: Current Outpatient Medications Medication Instructions allopurinol (ZYLOPRIM) 100 mg, Oral, Every morning atorvastatin (LIPITOR) 20 mg, Oral, Daily ferrous sulfate 325 (65 Fe) MG tablet 1 tablet, 2 times daily folic acid (Folvite) 1 MG tablet 1 tablet, Daily furosemide (LASIX) 40 mg, Daily hydrOXYzine pamoate (VISTARIL) 50 mg, Oral, 2 times daily PRN Ingrezza 60 mg, Oral, Daily insulin pen needle (BD Pen Needle Micro U/F) 32G x 6 mm misc USE DIRECTED UNDER THE SKIN TWICE DAILY Insulin Regular Human (HUMULIN R U-500 KWIKPEN SC) Inject under the skin 50-80 units BID Lancets (Freebeepayuch Delica Plus [id number]) misc LORazepam (ATIVAN) 0.5 mg, Oral, Every 8 hours PRN magnesium oxide (MAG-OX) 400 mg, Oral, Daily midodrine (PROAMATINE) 2.5 mg, Daily omeprazole (PRILOSEC) 40 mg, Oral, Daily RT, Do not crush or chew. OneTouch Verio test strip PARoxetine (PAXIL) 40 mg, Oral, Every morning potassium chloride CR (K-Tab) 20 MEQ ER tablet 20 mEq, Daily QUEtiapine (SEROQUEL) 25 mg, Oral, 2 times daily PRN QUEtiapine (SEROQUEL) 200 mg, Oral, Nightly sodium bicarbonate 650 mg, 2 times daily thiamine (VITAMIN B-1) 100 mg, Oral, Daily Trulicity 3 mg, Subcutaneous, Weekly ALLERGIES: No Known Allergies Past Medical History: Diagnosis Date Acute idiopathic gout of left foot 12/05/2022 Acute kidney injury superimposed on CKD ([facility]) 05/28/2022 Acute respiratory alkalosis 07/19/2023 Adjustment disorder with depressed mood ([facility]) 08/10/2022 Anxiety Atrophy of right kidney 05/15/2018 Cholecystitis COVID 03/31/2022 CPAP (continuous positive airway pressure) dependence Depression ([facility]) Diabetes mellitus type 2, controlled, without complications Diverticulosis Encounter for long-term (current) use of high-risk medication Finger fracture, right 12/29/2021 5th digit fracture Gout H/O CT scan of abdomen 07/15/2022 Bilateral non obstructing renal calculi.Left double Jejunum ureter stennt is no longer present at the left and urethra stone is no longer visualize. History of being hospitalized 07/19/2022 [facility] - syncope after dalysis History of being hospitalized 05/27/2022 Acute Renal Failure History of being hospitalized 04/2018 Cellulitis and sepsis @ [facility] History of being hospitalized 06/[address] [facility] x7 and 6 days [facility] History of [place]20[place] [facility] [place] of psychiatric hospitalization May 2023 [facility] X 1 week Hx of complete electrocardiogram 08/11/2016 echo EF 70% LV wall thickness is mildy increased. No Regional wall Motion abnormality Hx of CT scan of abdomen 02/01/2017 Non-obstructing right Nephrolithiasis and right Renal atrophy Hx of CT scan of head 06/26/2022 No acute intrcraial abnormality Hx of electrocardiogram 06/09/2021 Normal Ventricular LVEF is 65%-70%.No significant valvular dysfunction Normal right sided pressures, mildly diated ascending aorts. No pericardial effusion. Hypertension (CMS/HCC) Kidney failure Kidney stones LVH (left ventricular hypertrophy) CONCLUSION: 1. Mild concentric left ventricular hypertrophy with normal ventricular systolic function. LVEF is 55 to 60%. 2. Normal right ventricular size and systolic function. 3. No significant valvular dysfunction. 4. Mildly dilated ascending aorta and aortic root. 5. Unable to assess right-sided pressures due to lack of measurable tricuspid regurgitation. 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 Panic attack (CMS/HCC) Renal atrophy Sleep apnea in adult 09/08/2022 stones Vitamin D deficiency Past Surgical History: Procedure Laterality Date CARDIAC CATHETERIZATION 08/2016 CHOLECYSTECTOMY 2010 COLONOSCOPY 06/2018 ESOPHAGOGASTRODUODENOSCOPY 06/2018 EYE EXAM 2013 EYE EXAM 2012 FINGER FRACTURE SURGERY Right 5thdigit; pins and plates at [facility] [place] CYSTOSCOPY,INSERT URETHRAL STENT 05/2022 TUNNEL DIALYSIS CATHETER EXCHANGE 06/28/2022 WISDOM TOOTH EXTRACTION 1979 REVIEW OF SYMPTOMS: 14 POINT OF SYSTEM REVIEWED AND NEGATIVE OBJECTIVE: Constitutional: Afebrile @ home; no weakness or night sweats SKIN: No change in skin color; no itching, rash or lesions; no hair loss; HEENT: No HAs or injury; no dizziness; No difficulty with vision; no eye pain, discharge or lesions; no hearing loss or difficulty; no nasal discharge, NECK: No pain, limitation of motion, lumps or swollen glands RESP: No cough, wheezing or difficulty breathing. No CP with breathing; CARDIO: No CP , SOB or fatigue, No edema, palpitations or dyspnea with exertion GI: No N/V/D or abd. pain; good appetite with no recent change. No heart burn, liver or gallbladder disease; no rectal bleeding or pain : No urinary pain , frequency or odor. MUSCULOSKELETAL: No muscle pain or cramps; no extremity weakness.No joint pain, stiffness, swelling or limitation of movement NEUROLOGY: No H/O seizures, stroke or fainting. No weakness, tremors. Hematology: No bleeding problems or excessive bruising ENDOCRINE: No increase in hunger, thirst or urination; admits compliance to medical management plan Feet: numbness tingling yes , ulcers or skin break no Lab Results Component Value Date HGBA1C 7.0 08/09/2024 HGBA1C 8.1 05/10/2024 HGBA1C 8.2 01/05/2024 Lab Results Component Value Date GLU 96 08/09/2024 GLU 141 (H) 07/04/2024 GLU 96 05/10/2024 04/19/2024 2:05 PM 05/10/2024 9:25 AM 05/17/2024 12:50 PM 06/14/2024 8:30 AM 06/28/2024 9:57 AM 06/28/2024 10:05 AM 08/09/2024 9:44 AM Vitals BMI 39.97 kg/m2 40.25 kg/m2 39.62 kg/m2 40 kg/m2 39.62 kg/m2 39.75 kg/m2 BSA (m2) 2.77 m2 2.78 m2 2.76 m2 2.77 m2 2.76 m2 2.76 m2 Systolic 104 110 122 124 140 118 118 Diastolic 78 70 78 84 82 64 80 Heart Rate 60 63 82 74 68 SpO2 99 % 99 % 98 % Resp 16 18 18 Height (in) 6' 3 6' 3 6' 3 6' 3 Weight (lb) 319.8 322 317 320 317 318 Visit Report Report Report Report Report Report Report Report ASSESSMENT AND PLAN: Assessment/Plan Diagnoses and all orders for this visit: Type 2 diabetes mellitus with diabetic neuropathic arthropathy, with long-term current use of insulin ([facility]) - POCT glycosylated hemoglobin (Hb A1C) docked device - POCT glucose manually resulted - Dulaglutide (Trulicity) 3 MG/0.5ML solution auto-injector; Inject 3 mg under the skin 1 (one) time per week - insulin regular (HumuLIN R U-500 KWIKPEN) 500 UNIT/ML CONCENTRATED injection; Inject 50 Units under the skin in the morning and 50 Units in the evening and 50 Units before bedtime. 50-80 units BID. Primary hypertension (CMS/HCC) Hyperlipemia, mixed (CMS/HCC) Insulin long-term use (CMS/HCC) Vitamin D deficiency Encounter for dietary consultation High risk medication use Class 2 severe obesity due to excess calories with serious comorbidity and body mass index (BMI) of 39.0 to 39.9 in adult ([facility]) Diet and exercise reviewed with the patient Assessment & Plan 1. Diabetes mellitus. His A1c level has shown improvement, decreasing from 8.1 to 7. His blood sugar is 96. He is currently on U-500 insulin, taking 30-50 units twice a day, and Trulicity 3 mg once a week. A prescription for Trulicity 3 mg once a week for 90 days and U-500 insulin at a dosage of 50 units three times a day for 90 days will be sent to [facility]. Follow-up The patient will follow up in 4 months. documented in this encounter [facility] 08-07-2024 Telephone encounter Note Steven Walden accepts 11/06/24 surgical date at [facility] for Buried Penis Repair with skin graft with Dr. Gillis. Surgery schedulers will contact patient with pre-op appointments that are typically scheduled 7-10 days before surgery. Patient will find out arrival time the business day before surgery. Steven Walden verifies understanding. Riki Long RN [facility] 08-07-2024 Miscellaneous Notes Steven Walden accepts 11/06/24 surgical date at [facility] for Buried Penis Repair with skin graft with Dr. Gillis. Surgery schedulers will contact patient with pre-op appointments that are typically scheduled 7-10 days before surgery. Patient will find out arrival time the business day before surgery. Steven Walden verifies understanding. Riki Long RN Spoke with pt's . Nurse will call back tomorrow morning to talk with both patient and his about surgery an dates. Riki Long RN documented in this encounter [facility] 08-06-2024 Telephone encounter Note Spoke with pt's . Nurse will call back tomorrow morning to talk with both patient and his about surgery an dates. Riki Long RN [facility] 07-31-2024 Telephone encounter Note I called and psych started him on paxil from zoloft. Supposedly you are not supposed to take Paxil and Ingrezza? He is back down on Paxil 20 mg from 40 mg and itching is less. He has hydroxyzine to take as needed for itching and anxiety. She did not want to have him switch to [place]. [facility] Work Phone: 07-31-2024 Miscellaneous Notes I called and psych started him on paxil from zoloft. Supposedly you are not supposed to take Paxil and Ingrezza? He is back down on Paxil 20 mg from 40 mg and itching is less. He has hydroxyzine to take as needed for itching and anxiety. She did not want to have him switch to [place]. Isha he has been on this for awhile. We can change to [place] or just add Cyproheptadine 4 mg at bed for the itching and it should resolve Pt is calling today because pt's medication ns were changed and he is having a reactions to Ingrezia (itching) Please call pt [phone] documented in this encounter [facility] 07-31-2024 Telephone encounter Note Isha he has been on this for awhile. We can change to [place] or just add Cyproheptadine 4 mg at bed for the itching and it should resolve [facility] 07-31-2024 Telephone encounter Note Pt is calling today because pt's medication ns were changed and he is having a reactions to Ingrezia (itching) Please call pt [phone] [facility] 07-18-2024 History of Present illness Narrative Plastic Surgery Note CC: Buried penis HPI: Steven is a 64 year old male from [place], [place] who presents today for evaluation of a buried penis causing difficulty with urination. He recently underwent a slit procedure (05/12/2024) with his local urologist ([facility]) which provided only temporary relief. He reports he is currently able to urinate without issue. He has been working on weight loss, but reports his weight has remained stable ~317 lbs. At his heaviest he was around 380 lbs. He was evaluated by Dr. Gillis in urology on 07/05/2024, who recommended surgical intervention to expose the penis and remove scar tissue. Patient presents today to discuss PRS role in reconstruction. PMH: DM 2 (A1C 7.1% 06/15/24), non smoker. No history of PR/stents. Review of Systems: GENERAL: No weight loss, malaise or fevers. SKIN: See HPI PAIN ASSESSMENT: None presently No past medical history on file. No past surgical history on file. Current Outpatient Medications Medication Sig Dispense Refill nystatin (NYSTOP) powder Apply 1 application to affected area four times daily. 60 g 2 allopurinol (ZYLOPRIM) 100 mg tablet Take 100 mg by mouth once daily. folic acid 1 mg tablet Take 1 mg by mouth once daily. furosemide (LASIX) 40 mg tablet Take 40 mg by mouth once daily. omeprazole (PRILOSEC) 40 mg capsule Take 40 mg by mouth once daily. midodrine (PROAMATINE) 2.5 mg tablet Take 2.5 mg by mouth once daily. MEDICATION, NON-DATABASE Take 20 mg by mouth once daily. Paxel (Patient taking differently: Take 40 mg by mouth once daily. Paxel) thiamine (VITAMIN B-1) 100 mg tablet Take 100 mg by mouth once daily. potassium chloride ER (KLOR-CON) 20 mEq tablet Take 20 mEq by mouth once daily. QUEtiapine (SEROQUEL) 25 mg tablet Take 25 mg by mouth daily at bedtime. QUEtiapine (SEROQUEL) 200 mg tablet Take 200 mg by mouth daily at bedtime. ferrous sulfate (IRON) 325 mg (65 mg iron) tablet Take 325 mg by mouth once daily. simethicone/sod bicarb/tta (SODIUM BICARB-TARTARIC ACID ORAL) Take 1,300 mg by mouth once daily. atorvastatin (LIPITOR) 20 mg tablet Take 20 mg by mouth once daily. magnesium oxide 400 mg magnesium tab Take 400 mg by mouth once daily. valbenazine (INGREZZA) 60 mg capsule Take 60 mg by mouth once daily. insulin regular, human (HUMULIN R U-500, CONC, INSULIN SUBCUTANEOUS) Inject subcutaneously. Sliding scale 30 to 50 units dulaglutide (TRULICITY SUBCUTANEOUS) Inject subcutaneously one time a week. Mondays B cmplx 4/vit D3/C/folic/zinc (VITAL-D RX ORAL) Take 2,000 mg by mouth once daily. No current facility-administered medications for this visit. ALLERGIES No Known Allergies PE: BP 148/76 Pulse 83 Temp 36.4 C (97.5 F) (Temporal) Ht 190.5 cm (6' 3 ) Wt (!) 143.8 kg (317 lb) BMI 39.62 kg/m General: A&O x 3; NAD Abdomen/Groin: Buried penis / prominent mons Assessment: Steven is a 64 year old male who presents today for surgical evaluation of a buried penis. He was evaluated by urology with plans for excision/scar tissue removal, and reconstruction with a skin graft. Plan: - Photo taken and uploaded to patient's chart with verbal consent - Plan for surgical reconstruction with skin grafting - Discussed importance of DM control to promote wound healing - Reviewed post op care for skin graft, discussed a likely 2-3 day hospital stay post operatively - Pre op testing per urology team Follow up at the time of surgery The patient is seen and examined by Dr. Galicia and the following reflects his service. Scribed by Leslie Ya RN documented in this encounter [facility] 07-18-2024 Note HNO ID: [id number] Author: ABHI GALICIA MD Service: ? Author Type: Physician Type: Progress Notes Filed: 07/18/2024 14:18 Note Text: Plastic Surgery Note CC: Buried penis HPI: Steven is a 64 year old male from [place], [place] who presents today for evaluation of a buried penis causing difficulty with urination. He recently underwent a slit procedure (05/12/2024) with his local urologist ([facility]) which provided only temporary relief. He reports he is currently able to urinate without issue. He has been working on weight loss, but reports his weight has remained stable ~317 lbs. At his heaviest he was around 380 lbs. He was evaluated by Dr. Gillis in urology on 07/05/2024, who recommended surgical intervention to expose the penis and remove scar tissue. Patient presents today to discuss PRS role in reconstruction. PMH: DM 2 (A1C 7.1% 06/15/24), non smoker. No history of PR/stents. Review of Systems: GENERAL: No weight loss, malaise or fevers. SKIN: See HPI PAIN ASSESSMENT: None presently No past medical history on file. No past surgical history on file. Current Outpatient Medications Medication Sig Dispense Refill nystatin (NYSTOP) powder Apply 1 application to affected area four times daily. 60 g 2 allopurinol (ZYLOPRIM) 100 mg tablet Take 100 mg by mouth once daily. folic acid 1 mg tablet Take 1 mg by mouth once daily. furosemide (LASIX) 40 mg tablet Take 40 mg by mouth once daily. omeprazole (PRILOSEC) 40 mg capsule Take 40 mg by mouth once daily. midodrine (PROAMATINE) 2.5 mg tablet Take 2.5 mg by mouth once daily. MEDICATION, NON-DATABASE Take 20 mg by mouth once daily. Paxel (Patient taking differently: Take 40 mg by mouth once daily. Paxel) thiamine (VITAMIN B-1) 100 mg tablet Take 100 mg by mouth once daily. potassium chloride ER (KLOR-CON) 20 mEq tablet Take 20 mEq by mouth once daily. QUEtiapine (SEROQUEL) 25 mg tablet Take 25 mg by mouth daily at bedtime. QUEtiapine (SEROQUEL) 200 mg tablet Take 200 mg by mouth daily at bedtime. ferrous sulfate (IRON) 325 mg (65 mg iron) tablet Take 325 mg by mouth once daily. simethicone/sod bicarb/tta (SODIUM BICARB-TARTARIC ACID ORAL) Take 1,300 mg by mouth once daily. atorvastatin (LIPITOR) 20 mg tablet Take 20 mg by mouth once daily. magnesium oxide 400 mg magnesium tab Take 400 mg by mouth once daily. valbenazine (INGREZZA) 60 mg capsule Take 60 mg by mouth once daily. insulin regular, human (HUMULIN R U-500, CONC, INSULIN SUBCUTANEOUS) Inject subcutaneously. Sliding scale 30 to 50 units dulaglutide (TRULICITY SUBCUTANEOUS) Inject subcutaneously one time a week. Mondays B cmplx 4/vit D3/C/folic/zinc (VITAL-D RX ORAL) Take 2,000 mg by mouth once daily. No current facility-administered medications for this visit. ALLERGIES No Known Allergies PE: BP 148/76 Pulse 83 Temp 36.4 ?C (97.5 ?F) (Temporal) Ht 190.5 cm (6' 3 ) Wt (!) 143.8 kg (317 lb) BMI 39.62 kg/m? General: AANDO x 3; NAD Abdomen/Groin: Buried penis / prominent mons Assessment: Steven is a 64 year old male who presents today for surgical evaluation of a buried penis. He was evaluated by urology with plans for excision/scar tissue removal, and reconstruction with a skin graft. Plan: - Photo taken and uploaded to patient's chart with verbal consent - Plan for surgical reconstruction with skin grafting - Discussed importance of DM control to promote wound healing - Reviewed post op care for skin graft, discussed a likely 2-3 day hospital stay post operatively - Pre op testing per urology team Follow up at the time of surgery The patient is seen and examined by Dr. Galicia and the following reflects his service. Scribed by Leslie Ya RN [facility] 07-05-2024 Note HNO ID: [id number] Author: RIKI LONG RN Service: ? Author Type: Registered Nurse Type: Progress Notes Filed: 07/06/2024 08:02 Note Text: [facility] Spec, Riki Rosas RN Mark called- the medication discussed at his appt today was not sent to his pharmacy yest: Prescribed nystatin powder; transmitted prescription to patient's pharmacy [facility] [place] is confirmed pharmacy Please advise and thank you, Andrea [facility] 07-05-2024 History of Present illness Narrative Images from the original note were not included. [facility] Patient Service Spec, Riki Rosas RN Mark called- the medication discussed at his appt today was not sent to his pharmacy yest: Prescribed nystatin powder; transmitted prescription to patient's pharmacy [facility] [place] is confirmed pharmacy Please advise and thank you, Andrea documented in this encounter [facility] 07-05-2024 Instructions Van Gillis MD - 07/05/2024 8:31 AM EDT We discussed your buried penis and related concerns: - Your condition is causing difficulty with urination, and the area has significant scarring and inflammation. We discussed a surgical procedure to address this issue, which involves exposing the penis, removing scar tissue, and performing a skin graft if necessary. This would help improve urination and prevent further complications. - The procedure would involve removing the fatty tissue and skin above the penis (similar to a tummy tuck) and reconstructing the area to prevent the penis from retracting again. - If there is insufficient healthy skin to cover the penis, a skin graft from your thigh may be required. This would involve collaboration with a plastic surgeon. - Risks of the procedure include: - The skin graft may not heal properly, requiring additional procedures. - The wound from the hip-to-hip incision may partially open, requiring wound care at home. - Recovery will require significant activity restrictions: - No heavy lifting over 10 pounds for at least 4-6 weeks. - Avoid bending or squatting for the first few weeks. - Minimize movement and spend most of the first 1-2 weeks lying down with your legs elevated to reduce tension on the surgical site. - The procedure typically requires a 1-2 night hospital stay for close monitoring. - We tentatively discussed scheduling the surgery for August or September to allow time for further weight loss and a consultation with the plastic surgeon, Dr. Joey Amaya. We discussed your diabetes and kidney health: - Your diabetes is well controlled with a recent A1c of 7.1. Continue taking Trulicity as prescribed and maintain your current diet and lifestyle changes to support your health. - You have one functioning kidney with a creatinine level of 2.14. This is being monitored, and your current medications are adjusted to protect your kidney function. We discussed your weight loss: - You have lost nearly 100 pounds over the past year through dietary changes. This is excellent progress. Continue focusing on healthy eating and weight loss, as this will improve your surgical outcomes and overall health. We discussed your jock itch: - I prescribed nystatin powder to treat the fungal infection in your groin area. This has been sent to your regular pharmacy. Use it as directed. Next steps: - I will request an appointment with [facility] Galicia[facility] His evaluation is necessary to plan the procedure. - My nurse will follow up with you later this week to discuss scheduling the surgery if you decide to proceed. - Continue your current health efforts, including weight loss and diabetes management, to optimize your surgical outcomes. Please contact our office if you have any questions or concerns. documented in this encounter [facility] 07-05-2024 Note HNO ID: [id number] Author: VAN GILLIS MD Service: ? Author Type: Physician Type: Progress Notes Filed: 07/05/2024 08:35 Note Text: Urology Note Patient info Steven Garfield [id number] CC: The patient is a 64-year-old male with a history of diabetes mellitus and buried penis, presenting for further evaluation and management of his condition. HPI: The patient was referred by Anibal Marino and is accompanied by his . He has been experiencing difficulty with urination due to a buried penis. He was circumcised as a child and underwent a slit procedure by his local urologist in May, which temporarily improved urinary flow. However, the penis has retracted again, causing concern for future urinary difficulties. The patient reports that the area around the urethral meatus is scarred and rough following the procedure. The patient has a history of diabetes mellitus, with a recent hemoglobin A1c of 7.1 two weeks ago, indicating well-controlled diabetes. He is currently on Trulicity and insulin. He also reports weak erections. The patient has been managing his weight and has lost approximately 100 pounds over the past year, currently weighing around 317 pounds, down from nearly 400 pounds. He attributes his weight loss to dietary changes and denies the use of weight loss medications. He reports his weight has been consistent recently. The patient has a history of renal issues, with only one functioning kidney at approximately 33% capacity. He has a history of nephrolithiasis, which led to renal failure a few years ago. The right kidney is atrophied due to multiple stones. He is not a smoker. ROS: SENSITIVE EXAMINATION CONSENT: The sensitive examination was discussed with the Patient or Patient's Authorized Counselor Supervisor. As applicable, any other physician, advance practice provider, medical student, or other health professional student that will be observing or involved in the sensitive examination for educational or training purposes was discussed with the Patient or Authorized Counselor Supervisor. The Patient or Authorized Counselor Supervisor has agreed to proceed with the sensitive examination. (Sensitive examination includes inspection and/or palpation of the breasts, pelvis, prostate and anorectal regions) Exam: General: Alert AND oriented, no acute distress Skin: Tinea cruris bilaterally in groin creases Abdomen: Soft, non-tender, non-distended, obese with large pannus Genitourinary: Buried penis with large mobile escutcheon which is distinct from the pannus. There is a cicatrix of the surrounding penoscrotal skin which makes it impossible to deliver the penis. There is significant scarring and inflammation of the visualized shaft skin. The meatus is visible, and part of the glans, and there is no evidence of lichen sclerosus in this area. The scrotum is quite small and tethered upwards. Results: Labs: - Hemoglobin A1c: 7.1 - Hemoglobin A1c: 8.2 - Creatinine: 2.14 mg/dL A/P: 1. 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 Recent slit procedure by local urologist provided temporary relief but the condition has recurred. Examination reveals significant scarring and inflammation, making it difficult to visualize the penile shaft. - Discussed surgical intervention to expose the penis, remove scar tissue, and perform escutcheonectomy. - Explained potential need for scrotal flaps or skin graft from the thigh due to insufficient scrotal skin. - Discussed risks including graft failure and wound dehiscence. - Emphasized importance of weight loss and diabetes control to prevent recurrence. - Referred to Dr. Joey Galicia, plastic surgeon, for preoperative evaluation. - Scheduled surgery tentatively for August to September. 2. 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 - Addressed as part of overall management of diabetes and surgical intervention for buried penis. 3. Type 2 diabetes mellitus without complication, with long-term current use of insulin (HCC) (E11.9) Diabetes is well-controlled with recent HbA1c of 7.1%. Patient is on Trulicity and insulin therapy. - Continue current diabetes management. - Monitor blood glucose levels closely, especially postoperatively. 4. Stage 3 chronic kidney disease, unspecified whether stage 3a or 3b CKD (HCC) (N18.30) CKD stage 3 with a creatinine level of 2.14 mg/dL. Patient has a solitary functioning kidney. - Monitor renal function regularly. - Avoid nephrotoxic medications. 5. 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 - Prescribed nystatin powder; transmitted prescription to patient's pharmacy. 6. Solitary kidney, acquired (Z90.5) Patient has a solitary functioning kidney due to nephrolithiasis and atrophy (more content not included)... [facility] 07-05-2024 History of Present illness Narrative Urology Note Patient info Steven Win 1960 [id number] CC: The patient is a 64-year-old male with a history of diabetes mellitus and buried penis, presenting for further evaluation and management of his condition. HPI: The patient was referred by Anibal Marino and is accompanied by his . He has been experiencing difficulty with urination due to a buried penis. He was circumcised as a child and underwent a slit procedure by his local urologist in May, which temporarily improved urinary flow. However, the penis has retracted again, causing concern for future urinary difficulties. The patient reports that the area around the urethral meatus is scarred and rough following the procedure. The patient has a history of diabetes mellitus, with a recent hemoglobin A1c of 7.1 two weeks ago, indicating well-controlled diabetes. He is currently on Trulicity and insulin. He also reports weak erections. The patient has been managing his weight and has lost approximately 100 pounds over the past year, currently weighing around 317 pounds, down from nearly 400 pounds. He attributes his weight loss to dietary changes and denies the use of weight loss medications. He reports his weight has been consistent recently. The patient has a history of renal issues, with only one functioning kidney at approximately 33% capacity. He has a history of nephrolithiasis, which led to renal failure a few years ago. The right kidney is atrophied due to multiple stones. He is not a smoker. ROS: SENSITIVE EXAMINATION CONSENT: The sensitive examination was discussed with the Patient or Patient's Authorized Counselor Supervisor. As applicable, any other physician, advance practice provider, medical student, or other health professional student that will be observing or involved in the sensitive examination for educational or training purposes was discussed with the Patient or Authorized Counselor Supervisor. The Patient or Authorized Counselor Supervisor has agreed to proceed with the sensitive examination. (Sensitive examination includes inspection and/or palpation of the breasts, pelvis, prostate and anorectal regions) Exam: General: Alert & oriented, no acute distress Skin: Tinea cruris bilaterally in groin creases Abdomen: Soft, non-tender, non-distended, obese with large pannus Genitourinary: Buried penis with large mobile escutcheon which is distinct from the pannus. There is a cicatrix of the surrounding penoscrotal skin which makes it impossible to deliver the penis. There is significant scarring and inflammation of the visualized shaft skin. The meatus is visible, and part of the glans, and there is no evidence of lichen sclerosus in this area. The scrotum is quite small and tethered upwards. Results: Labs: - Hemoglobin A1c: 7.1 - Hemoglobin A1c: 8.2 - Creatinine: 2.14 mg/dL A/P: 1. 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 Recent slit procedure by local urologist provided temporary relief but the condition has recurred. Examination reveals significant scarring and inflammation, making it difficult to visualize the penile shaft. - Discussed surgical intervention to expose the penis, remove scar tissue, and perform escutcheonectomy. - Explained potential need for scrotal flaps or skin graft from the thigh due to insufficient scrotal skin. - Discussed risks including graft failure and wound dehiscence. - Emphasized importance of weight loss and diabetes control to prevent recurrence. - Referred to Dr. Joey Galicia, plastic surgeon, for preoperative evaluation. - Scheduled surgery tentatively for August to September. 2. 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 - Addressed as part of overall management of diabetes and surgical intervention for buried penis. 3. Type 2 diabetes mellitus without complication, with long-term current use of insulin (HCC) (E11.9) Diabetes is well-controlled with recent HbA1c of 7.1%. Patient is on Trulicity and insulin therapy. - Continue current diabetes management. - Monitor blood glucose levels closely, especially postoperatively. 4. Stage 3 chronic kidney disease, unspecified whether stage 3a or 3b CKD (HCC) (N18.30) CKD stage 3 with a creatinine level of 2.14 mg/dL. Patient has a solitary functioning kidney. - Monitor renal function regularly. - Avoid nephrotoxic medications. 5. 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 - Prescribed nystatin powder; transmitted prescription to patient's pharmacy. 6. Solitary kidney, acquired (Z90.5) Patient has a solitary functioning kidney due to nephrolithiasis and atrophy of the right kidney. - Monitor renal function. - Prevent further stone formation. 7. Nephrolithiasis (N20.0) History of recurrent kidney stones leading to renal failure and atrophy of the right kidney. - Encourage adequate hydration. - Monitor for signs of stone formation. Will refer to Dr. Galicia for consultation as skin graft will be required. We would schedule the patient for buried penis repair with escutcheonectomy, debridement of penile and penoscrotal skin and subcutaneous tissues, penopubic junction fixation, complex scrotoplasty, and split thickness skin graft from the thigh. The patient consented to the use of ambient Outbrain software for draft documentation of the visit consistent with [facility] s Notice of Privacy Practices. Visit complexity inherent to evaluation and management associated with medical care services that serve as the continuing focal point for all needed health care services and/or with medical care services that are part of ongoing care related to a patient s single, serious condition or a complex condition. Consultation requested by Anibal Brantley for an opinion regarding for buried penis. My final recommendations will be communicated back to the requesting physician by way of shared medical record or letter via US mail Van Gillis MD Director, [facility], [facility] documented in this encounter [facility] 06-28-2024 History of Present illness Narrative Images from the original note were not included. Steven Walden is a 64 y.o. male presents for Medication Management. HPI: Patient is here for medication follow up. Patient has improved since last appt. Has been much better went out twice. Mood is reported as depressed and rates 5 (10worst). Anxiety is 6 (10worst). Has not needed extra daytime. Sleeping 10-12 hours. Medication compliant. No reported side effects. Denies abuse of substances. Medical problems since last visit. Seeing urologist Psychosocial stressors include may have to put dog down. Possible penile surgery seeing Herminio. SUBJECTIVE: PAST MEDICAL HISTORY: Past Medical History: Diagnosis Date Acute idiopathic gout of left foot 12/05/2022 Acute kidney injury superimposed on CKD ([facility]) 05/28/2022 Acute respiratory alkalosis 07/19/2023 Adjustment disorder with depressed mood ([facility]/HCC) 08/10/2022 Anxiety Atrophy of right kidney 05/15/2018 Cholecystitis COVID 03/31/2022 CPAP (continuous positive airway pressure) dependence Depression ([facility]) Diabetes mellitus type 2, controlled, without complications ([facility]) Diverticulosis Encounter for long-term (current) use of high-risk medication Finger fracture, right 12/29/2021 5th digit fracture Gout H/O CT scan of abdomen 07/15/2022 Bilateral non obstructing renal calculi.Left double Jejunum ureter stennt is no longer present at the left and urethra stone is no longer visualize. History of being hospitalized 07/19/2022 [facility] - syncope after dalysis History of being hospitalized 05/27/2022 Acute Renal Failure History of being hospitalized 04/2018 Cellulitis and sepsis @ [facility] History of being hospitalized 06/[address] [facility] x7 [address] [facility] [place] of [place] [facility] [place] of psychiatric hospitalization May 2023 [facility] 1 week Hx of complete electrocardiogram 08/11/2016 echo EF 70% LV wall thickness is mildy increased. No Regional wall Motion abnormality Hx of CT scan of abdomen 02/01/2017 Non-obstructing right Nephrolithiasis and right Renal atrophy Hx of CT scan of head 06/26/2022 No acute intrcraial abnormality Hx of electrocardiogram 06/09/2021 Normal Ventricular LVEF is 65%-70%.No significant valvular dysfunction Normal right sided pressures, mildly diated ascending aorts. No pericardial effusion. Hypertension (CMS/HCC) Kidney failure Kidney stones LVH (left ventricular hypertrophy) CONCLUSION: 1. Mild concentric left ventricular hypertrophy with normal ventricular systolic function. LVEF is 55 to 60%. 2. Normal right ventricular size and systolic function. 3. No significant valvular dysfunction. 4. Mildly dilated ascending aorta and aortic root. 5. Unable to assess right-sided pressures due to lack of measurable tricuspid regurgitation. 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 Panic attack (CMS/HCC) Renal atrophy Sleep apnea in adult 09/08/2022 stones Vitamin D deficiency ALLERGIES: No Known Allergies SURGICAL HISTORY: Past Surgical History: Procedure Laterality Date CARDIAC CATHETERIZATION 08/2016 CHOLECYSTECTOMY 2010 COLONOSCOPY 06/2018 ESOPHAGOGASTRODUODENOSCOPY 06/2018 EYE EXAM 2013 EYE EXAM 2013 FINGER FRACTURE SURGERY Right 5thdigit; pins and plates at [facility] [place] CYSTOSCOPY,INSERT URETHRAL STENT 05/2022 TUNNEL DIALYSIS CATHETER EXCHANGE 06/28/2022 WISDOM TOOTH EXTRACTION 1979 FAMILY HISTORY: Family History Problem Relation Name Age of Onset Other (Other) Mother Pacemaker MD2 Heart disease Mother Other (Other) Father Lungs deformed Depression Father Stroke Father Obesity Sister half sister Diabetes Sister half sister Kidney cancer Sister half sister SOCIAL HISTORY: Social History Tobacco Use Smoking status: Never Smokeless tobacco: Never Vaping Use Vaping status: Never Used Substance Use Topics Alcohol use: Not Currently Comment: no caffiene; Drug use: Never REVIEW OF SYMPTOMS - MENTAL STATUS EXAM Appearance Appearance: Normal grooming and hygiene. Appears stated age. Dressed appropriately for weather. Behavior Calm, cooperative, pleasant. Good posture.. No abnormal movements. Speech Normal, clear, regular rate, rhythm and volume Affect Full range. Stable. Appropriate and congruent with mood. Mood Anxious and Depressed Thought Process Organized, logical, and goal directed Thought Content Denies suicidal and homicidal ideation Perception Denies auditory and visual hallucinations. No evidence of delusions. Orientation Appropriate to age, Person, Place, and Time Memory/Concentration Immediate, recent and remote memory intact Insight/Judgement Good. Able to make reasonable life decisions. OBJECTIVE: Visit Vitals Smoking Status Never No results found for: TSH Lab Results Component Value Date GLU 96 05/10/2024 CALCIUM 8.7 02/29/2024 NA 139 02/29/2024 K 3.8 02/29/2024 CO2 17.7 (L) 02/29/2024 BUN 40.0 (H) 02/29/2024 CREATININE 2.43 (H) 02/29/2024 Lab Results Component Value Date WBC 9.4 07/14/2022 No results found for: CHOL No results found for: HDL No results found for: LDLCALC Lab Results Component Value Date TRIG 204 (H) 05/19/2023 ASSESSMENT AND PLAN: Assessment/Plan Major Depression, recurrent severe without psychotic features BRITTANY R/O dysthymia Psych Medication List Seroquel 200mg po daily -target depression Seroquel 25mg bid off label Paxil 40mg po in am Ingrezza 60mg per day by Dr Low Ativan .5mg po q8 prn severe anxiety -while transitioning meds Continue with counseling Patient was seen Face to Face, Reviewed chart documents and documentation, Visit time : 40min F/U 8 weeks documented in this encounter [facility] 06-15-2024 Note HNO ID: [id number] Author: SANDIE PEREZ MA Service: ? Author Type: Commodity Manager Type: Progress Notes Filed: 06/15/2024 14:11 Note Text: Post Void Residual done on patient with 42ML residual volume remaining. notified. Sandie Perez MA [facility] 06-15-2024 History of Present illness Narrative Post Void Residual done on patient with 42ML residual volume remaining. notified. Sandie Perez MA Images from the original note were not included. [facility] MALE PATIENT - HISTORY AND PHYSICAL EXAMINATION PATIENT: Steven Walden Patient has been identified by name and date of : Yes PCP: No primary care provider on file. CHIEF COMPLAINT: buried penis HISTORY OF PRESENT ILLNESS: Steven Walden is a 64 year old male presenting today for: buried penis. Pt presents with his to today's visit. Never seen in urology at [facility]. Pt is followed by urology near where he lives. He has had buried penis for a couple of years, but recently had difficulty urinating due to this. He was re-circumcised last month with urology but already reports he is having excess skin regrowth. He has Dm and last A1C was 8.2. Denies any urinary concerns at this time. He has a strong stream. Not having erections. Review: Daytime frequency: Q 2-3 Hrs; Night time frequency: 1X Irritative (STORAGE) symptoms: - Bothersome frequency: No - Urgency: Yes- sometimes - Incontinence: Stress No / Urge No Obstructive symptoms: - Force of stream Good - Hesitancy Yes - Intermittency: No - Straining: Yes- slightly - Incomplete emptying: No - Double voiding: No - Postvoid dribbling: No Current Urinary Status: - Indwelling catheter: No - Current intermittent Catheterization: No - Gross hematuria: No - UTI: No PVR 42 ml REVIEW OF SYSTEMS: relevant updates noted in HPI PAST MEDICAL HISTORY: No past medical history on file. No past surgical history on file. No family history on file. MEDICATIONS: reviewed and confirmed with patient OFFICE DATA: labs reviewed OTHER DATA: Labs reviewed No results found for: PSA No results found for: TESTOST , TESTFREE No results found for: HBA1C No results found for: TSH No results found for: CREAT PHYSICAL EXAMINATION: The sensitive examination was discussed with the Patient or Patient's Authorized Counselor Supervisor. As applicable, any other physician, advance practice provider, medical student, or other health professional student that will be observing or involved in the sensitive examination for educational or training purposes was discussed with the Patient or Authorized Counselor Supervisor. The Patient or Authorized Counselor Supervisor has agreed to proceed with the sensitive examination. (Sensitive examination includes inspection and/or palpation of the breasts, pelvis, prostate and anorectal regions) General appearance: cooperative, pleasant, no acute distress, alert and oriented Neuro: normal affect, normal speech, gait is normal. Lungs/chest: no signs of respiratory distress, no audible wheezing Extremities: no edema, normal motor function. Back: no CVA tenderness Abdomen: no suprapubic distention Scrotum: non-erythematous, no lesions, no hydrocele Penis: buried penis, circumcised. ASSESSMENT: 1. 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 Encounter for screening for diabetes mellitus - ICD9: V77.1, ICD10: Z13.1 PLAN: 1. Acquired buried penis (Primary) -will refer to Dr. Gillis for buried penis repair surgery 2. Encounter for screening for diabetes mellitus - HEMOGLOBIN A1C; Future The results of tests will be communicated to patient via telephone. Patient verbalized understanding. Anibal Brantley APRN.CNP Location:[facility] documented in this encounter [facility] 06-15-2024 Note HNO ID: [id number] Author: ANIBAL BRANTLEY APRN.KARINA Service: ? Author Type: Nurse Practitioner Type: Progress Notes Filed: 06/17/2024 18:35 Note Text: [facility] MALE PATIENT - HISTORY AND PHYSICAL EXAMINATION PATIENT: Steven Walden Patient has been identified by name and date of : Yes PCP: No primary care provider on file. CHIEF COMPLAINT: buried penis HISTORY OF PRESENT ILLNESS: Steven Walden is a 64 year old male presenting today for: buried penis. Pt presents with his to today's visit. Never seen in urology at [facility]. Pt is followed by urology near where he lives. He has had buried penis for a couple of years, but recently had difficulty urinating due to this. He was re-circumcised last month with local urology but already reports he is having difficulty with the buried penis again. He has Dm and last A1C was 8.2. Denies any urinary concerns at this time. He has a strong stream. Not having erections. Review: Daytime frequency: Q 2-3 Hrs; Night time frequency: 1X Irritative (STORAGE) symptoms: - Bothersome frequency: No - Urgency: Yes- sometimes - Incontinence: Stress No / Urge No Obstructive symptoms: - Force of stream Good - Hesitancy Yes - Intermittency: No - Straining: Yes- slightly - Incomplete emptying: No - Double voiding: No - Postvoid dribbling: No Current Urinary Status: - Indwelling catheter: No - Current intermittent Catheterization: No - Gross hematuria: No - UTI: No PVR 42 ml REVIEW OF SYSTEMS: relevant updates noted in HPI PAST MEDICAL HISTORY: No past medical history on file. No past surgical history on file. No family history on file. MEDICATIONS: reviewed and confirmed with patient OFFICE DATA: labs reviewed OTHER DATA: Labs reviewed No results found for: PSA No results found for: TESTOST , TESTFREE No results found for: HBA1C No results found for: TSH No results found for: CREAT PHYSICAL EXAMINATION: The sensitive examination was discussed with the Patient or Patient's Authorized Counselor Supervisor. As applicable, any other physician, advance practice provider, medical student, or other health professional student that will be observing or involved in the sensitive examination for educational or training purposes was discussed with the Patient or Authorized Counselor Supervisor. The Patient or Authorized Counselor Supervisor has agreed to proceed with the sensitive examination. (Sensitive examination includes inspection and/or palpation of the breasts, pelvis, prostate and anorectal regions) General appearance: cooperative, pleasant, no acute distress, alert and oriented Neuro: normal affect, normal speech, gait is normal. Lungs/chest: no signs of respiratory distress, no audible wheezing Extremities: no edema, normal motor function. Back: no CVA tenderness Abdomen: no suprapubic distention Scrotum: non-erythematous, no lesions, no hydrocele Penis: buried penis, circumcised. ASSESSMENT: 1. 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 Encounter for screening for diabetes mellitus - ICD9: V77.1, ICD10: Z13.1 PLAN: 1. Acquired buried penis (Primary) -will refer to Dr. Gillis for buried penis repair 2. Encounter for screening for diabetes mellitus - HEMOGLOBIN A1C; Future The results of tests will be communicated to patient via telephone. Patient verbalized understanding. Anibal Brantley APRN.KARINA Location:[facility] 05-30-2024 Hospital Discharge instructions Patient Education 05/30/2024 08:48:31 BMI for Adults BMI for Adults Body mass index (BMI) is a number found using a person's weight and height. BMI can help tell how much of a person's weight is made up of fat. BMI does not measure body fat directly. It is used instead of tests that directly measure body fat, which can be difficult and expensive. What are BMI measurements used for? BMI is useful to: Find out if your weight puts you at higher risk for medical problems. Help recommend changes, such as in diet and exercise. This can help you reach a healthy weight. BMI screening can be done again to see if these changes are working. How is BMI calculated? Your height and weight are measured. The BMI is found from those numbers. This can be done with U.S. or metric measurements. Note that charts and online BMI calculators are available to help you find your BMI quickly and easily without doing these calculations. To calculate your BMI in U.S. measurements: 1.Measure your weight in pounds (lb). 2.Multiply the number of pounds by 703. So, for an adult who weighs 150 lb, multiply that number by 703: 150 x 703, which equals 105,450. 3.Measure your height in inches. Then multiply that number by itself to get a measurement called inches squared. So, for an adult who is 70 inches tall, the inches squared measurement is 70 inches x 70 inches, which equals 4,900 inches squared. 4.Divide the total from step 2 (number of lb x 703) by the total from step 3 (inches squared): 105,450 4,900 = 21.5. This is your BMI. To calculate your BMI in metric measurements: 1.Measure your weight in kilograms (kg). For this example, the weight is 70 kg. 2.Measure your height in meters (m). Then multiply that number by itself to get a measurement called meters squared. So, for an adult who is 1.75 m tall, the meters squared measurement is 1.75 m x 1.75 m, which equals 3.1 meters squared. 3.Divide the number of kilograms (your weight) by the meters squared number. In this example: 70 3.1 = 22.6. This is your BMI. What do the results mean? BMI charts are used to see if you are underweight, normal weight, overweight, or obese. The following guidelines will be used: Underweight: BMI less than 18.5. Normal weight: BMI between 18.5 and 24.9. Overweight: BMI between 25 and 29.9. Obese: BMI of 30 or above. BMI is a tool and cannot diagnose a condition. Talk with your health care provider about what your BMI means for you. Keep these notes in mind: Weight includes fat and muscle. Someone with a muscular build, such as an athlete, may have a BMI that is higher than 24.9. In cases like these, BMI is not a correct measure of body fat. If you have a BMI of 25 or higher, your provider may need to do more testing to find out if excess body fat is the cause. BMI is measured the same way for males and females. Females usually have more body fat than males of the same height and weight. Where to find more information For more information about BMI, including tools to quickly find your BMI, go to: Centers for Disease Control and Prevention: cdc.gov [employer] Heart Association: heart.org National Heart, Lung, and Blood [place]: nhlbi.nih.gov This information is not intended to replace advice given to you by your health care provider. Make sure you discuss any questions you have with your health care provider. Document Revised: 12/16/2022 Document Reviewed: 12/09/2022 [employer] Patient Education 2023 [employer] 05/30/2024 08:48:16 Paraphimosis Paraphimosis Paraphimosis is a serious condition that happens when the fold of skin that stretches over the tip of the penis (foreskin) becomes stuck when it is pulled back. This condition blocks blood from flowing away from the penis tip, and that causes swelling that gets worse and worse. Paraphimosis needs to be treated right away. What are the causes? This condition may be caused by: Leaving the foreskin pulled back after a procedure, such as after the placement of a catheter. A foreskin that is tighter than normal. A foreskin that has been pulled back for too long. A forceful pulling back of the foreskin. Infection under the foreskin. Trauma to the area, such as a hard hit to the tip of the penis. Having sex or masturbating. Hair or clothing that gets wrapped around the penis. What increases the risk? You are more likely to develop this condition if: You have not had all of your foreskin removed. You have had frequent procedures or surgeries on your urinary or reproductive organs. You have poor hygiene. You need help with daily hygiene from a caregiver. What are the signs or symptoms? Symptoms of this condition include: A foreskin that cannot be returned to its normal position. Pain, often at the tip of the penis. Swelling of the penis. Trouble urinating. Skin that is red or bluish at the tip of the penis. How is this diagnosed? This condition may be diagnosed based on your symptoms and a physical exam. How is this treated? This condition may be treated with: A procedure in which your health care provider manually moves the foreskin back into position over the tip of the penis. Swelling may first be reduced by: ?Applying ice to the area. ?Wrapping a bandage tightly around the penis. ?Using needles to drain any fluid, pus, or blood that is causing the swelling. ?Applying a gauze soaked with medicines or solutions. ?Applying granulated sugar to the area. ?Injecting medicine into the foreskin to reduce swelling. Medicine to relieve pain. Medicine may be given by mouth, through an IV, or by an injection to the base of the penis (nerve block). A procedure in which a small incision is made in the tightened foreskin to free it and allow it to be pulled back into place (dorsal slit procedure). Surgery to remove the foreskin (circumcision). This may be done if the foreskin cannot be moved back into place. Most of the time, treatment can be done in a clinic or a health care provider's office. Follow these instructions at home: Lifestyle Follow instructions from your health care provider about avoiding sexual activity. Wear loose undergarments to avoid applying pressure to the area. General instructions Take uwzf-hvs-[id number] and prescription medicines only as told by your health care provider. Apply any creams to the affected area only as told by your health care provider. Follow instructions from your health care provider about how to take care of your wound. Make sure you: ?Wash your hands with soap and water for at least 20 seconds before and after you change your bandage (dressing) if you were given one. If soap and water are not available, use hand concrete pipe machine operator. ?Ask when you should remove your dressing. ?Ask whether the area can get wet. Do not retract the foreskin for 1 week or as told by your health care provider. Keep all follow-up visits. This is important. Contact a health care provider if: The treated area of skin does not heal or it becomes more irritated, red, or bloody. Urination is difficult or painful. Pain in the penis continues, even after you take medicine for pain. You develop a fever. Get help right away if: The skin at the tip of the penis is red or bluish. You have severe pain. Summary Paraphimosis is a serious condition that happens when the fold of skin that stretches over the tip of the penis (foreskin) becomes stuck when it is pulled back. Paraphimosis needs to be treated right away. Take mlzf-tsp-rlczkdv and prescription medicines only as told by your health care provider. Apply any creams to the affected area only as told by your health care provider. Contact a health care provider if urination is difficult or painful, or if pain in the penis continues even after you take medicine for pain. Keep all follow-up visits. This is important. This information is not intended to replace advice given to you by your health care provider. Make sure you discuss any questions you have with your health care provider. Document Revised: 03/11/2022 Document Reviewed: 03/11/2022 [employer] Patient Education 2023 [employer] Follow Up Care 05/15/2024 12:45:49 With:Main ROMERO, HUSAM Corona, URO Address: When: Unknown [facility] 05-30-2024 Note Patient Education Nutrition BMI for Adults Body mass index (BMI) is a number found using a person's weight and height. BMI can help tell how much of a person's weight is made up of fat. BMI does not measure body fat directly. It is used instead of tests that directly measure body fat, which can be difficult and expensive. What are BMI measurements used for? BMI is useful to: ??? Find out if your weight puts you at higher risk for medical problems. ??? Help recommend changes, such as in diet and exercise. This can help you reach a healthy weight. BMI screening can be done again to see if these changes are working. How is BMI calculated? Your height and weight are measured. The BMI is found from those numbers. This can be done with U.S. or metric measurements. Note that charts and online BMI calculators are available to help you find your BMI quickly and easily without doing these calculations. To calculate your BMI in U.S. measurements: 1. Measure your weight in pounds (lb). 2. Multiply the number of pounds by 703. ??? So, for an adult who weighs 150 lb, multiply that number by 703: 150 x 703, which equals 105,450. 3. Measure your height in inches. Then multiply that number by itself to get a measurement called inches squared. ??? So, for an adult who is 70 inches tall, the inches squared measurement is 70 inches x 70 inches, which equals 4,900 inches squared. 4. Divide the total from step 2 (number of lb x 703) by the total from step 3 (inches squared): 105,450 ? 4,900 = 21.5. This is your BMI. To calculate your BMI in metric measurements: 1. Measure your weight in kilograms (kg). ??? For this example, the weight is 70 kg. 2. Measure your height in meters (m). Then multiply that number by itself to get a measurement called meters squared. ??? So, for an adult who is 1.75 m tall, the meters squared measurement is 1.75 m x 1.75 m, which equals 3.1 meters squared. 3. Divide the number of kilograms (your weight) by the meters squared number. In this example: 70 ? 3.1 = 22.6. This is your BMI. What do the results mean? BMI charts are used to see if you are underweight, normal weight, overweight, or obese. The following guidelines will be used: ??? Underweight: BMI less than 18.5. ??? Normal weight: BMI between 18.5 and 24.9. ??? Overweight: BMI between 25 and 29.9. ??? Obese: BMI of 30 or above. BMI is a tool and cannot diagnose a condition. Talk with your health care provider about what your BMI means for you. Keep these notes in mind: ??? Weight includes fat and muscle. Someone with a muscular build, such as an athlete, may have a BMI that is higher than 24.9. In cases like these, BMI is not a correct measure of body fat. ??? If you have a BMI of 25 or higher, your provider may need to do more testing to find out if excess body fat is the cause. ??? BMI is measured the same way for males and females. Females usually have more body fat than males of the same height and weight. Where to find more information For more information about BMI, including tools to quickly find your BMI, go to: ??? Centers for Disease Control and Prevention: cdc.gov ??? [employer] Heart Association: heart.org ??? National Heart, Lung, and Blood [place]: nhlbi.nih.gov This information is not intended to replace advice given to you by your health care provider. Make sure you discuss any questions you have with your health care provider. Document Revised: 12/16/2022 Document Reviewed: 12/09/2022 [employer] Patient Education ? 2023 [employer] Urology Paraphimosis Paraphimosis is a serious condition that happens when the fold of skin that stretches over the tip of the penis (foreskin) becomes stuck when it is pulled back. This condition blocks blood from flowing away from the penis tip, and that causes swelling that gets worse and worse. Paraphimosis needs to be treated right away. What are the causes? This condition may be caused by: ??? Leaving the foreskin pulled back after a procedure, such as after the placement of a catheter. ??? A foreskin that is tighter than normal. ??? A foreskin that has been pulled back for too long. ??? A forceful pulling back of the foreskin. ??? Infection under the foreskin. ??? Trauma to the area, such as a hard hit to the tip of the penis. ??? Having sex or masturbating. ??? Hair or clothing that gets wrapped around the penis. What increases the risk? You are more likely to develop this condition if: ??? You have not had all of your foreskin removed. ??? You have had frequent procedures or surgeries on your urinary or reproductive organs. ??? You have poor hygiene. ??? You need help with daily hygiene from a caregiver. What are the signs or symptoms? Symptoms of this condition include: ??? A foreskin that cannot be returned to its normal position. ??? Pain, often at the tip of the penis. ??? Swelling (more content not included)... [facility] 05-17-2024 History of Present illness Narrative Patient would like to discuss his anxiety. Patient has not seen a difference in anxiety with medication increase. Images from the original note were not included. Steven Walden is a 64 y.o. male presents for Medication Management. HPI: Patient is here for medication follow up. Patient has noticed worsening of anxiety. Mood is reported as depressed and rates 4 (10worst). Anxiety is 7 (10worst). Has difficulty normally in winter. Sleeping 10 hours. Three weeks ago had times where he didn't sleep went was 38 hours. Mind couldn't shut down. Medication compliant. No reported side effects. Denies abuse of substances. Medical problems since last visit. Had outpatient surgery. Psychosocial stressors include financial problems, chronic problems. Hasn't seen counselor I n 11-2 months due to insurance. SUBJECTIVE: PAST MEDICAL HISTORY: Past Medical History: Diagnosis Date Acute idiopathic gout of left foot 12/05/2022 Acute kidney injury superimposed on CKD ([facility]/HCC) 05/28/2022 Acute respiratory alkalosis 07/19/2023 Adjustment disorder with depressed mood (CMS/HCC) 08/10/2022 Anxiety Atrophy of right kidney 05/15/2018 Cholecystitis COVID 03/31/2022 CPAP (continuous positive airway pressure) dependence Depression (CMS/HCC) Diabetes mellitus type 2, controlled, without complications (CMS/HCC) Diverticulosis Encounter for long-term (current) use of high-risk medication Finger fracture, right 12/29/2021 5th digit fracture Gout H/O CT scan of abdomen 07/15/2022 Bilateral non obstructing renal calculi.Left double Jejunum ureter stennt is no longer present at the left and urethra stone is no longer visualize. History of being hospitalized 07/19/2022 [facility] - syncope after dalysis History of being hospitalized 05/27/2022 Acute Renal Failure History of being hospitalized 04/2018 Cellulitis and sepsis @ [facility] History of being hospitalized 06/[address] [facility] x7 [address] [facility] History of [place] [facility] [place] of psychiatric hospitalization May 2023 [facility] X 1 week Hx of complete electrocardiogram 08/11/2016 echo EF 70% LV wall thickness is mildy increased. No Regional wall Motion abnormality Hx of CT scan of abdomen 02/01/2017 Non-obstructing right Nephrolithiasis and right Renal atrophy Hx of CT scan of head 06/26/2022 No acute intrcraial abnormality Hx of electrocardiogram 06/09/2021 Normal Ventricular LVEF is 65%-70%.No significant valvular dysfunction Normal right sided pressures, mildly diated ascending aorts. No pericardial effusion. Hypertension (CMS/HCC) Kidney failure Kidney stones LVH (left ventricular hypertrophy) CONCLUSION: 1. Mild concentric left ventricular hypertrophy with normal ventricular systolic function. LVEF is 55 to 60%. 2. Normal right ventricular size and systolic function. 3. No significant valvular dysfunction. 4. Mildly dilated ascending aorta and aortic root. 5. Unable to assess right-sided pressures due to lack of measurable tricuspid regurgitation. 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 group home (current) drug therapy Panic attack (CMS/HCC) Renal atrophy Sleep apnea in adult 09/08/2022 stones Vitamin D deficiency ALLERGIES: No Known Allergies SURGICAL HISTORY: Past Surgical History: Procedure Laterality Date CARDIAC CATHETERIZATION 08/2016 CHOLECYSTECTOMY 2010 COLONOSCOPY 06/2018 ESOPHAGOGASTRODUODENOSCOPY 06/2018 EYE EXAM 2013 EYE EXAM 2012 FINGER FRACTURE SURGERY Right 5thdigit; pins and plates at [facility] [place] CYSTOSCOPY,INSERT URETHRAL STENT 05/2022 TUNNEL DIALYSIS CATHETER EXCHANGE 06/28/2022 WISDOM TOOTH EXTRACTION 1979 FAMILY HISTORY: Family History Problem Relation Name Age of Onset Other (Other) Mother Pacemaker MD2 Heart disease Mother Other (Other) Father Lungs deformed Depression Father Stroke Father Obesity Sister half sister Diabetes Sister half sister Kidney cancer Sister half sister SOCIAL HISTORY: Social History Tobacco Use Smoking status: Never Smokeless tobacco: Never Vaping Use Vaping status: Never Used Substance Use Topics Alcohol use: Not Currently Comment: no caffiene; Drug use: Never Depression: At risk (05/17/2024) PHQ-2 PHQ-2 Score: 5 REVIEW OF SYMPTOMS - MENTAL STATUS EXAM Appearance Appearance: Normal grooming and hygiene. Appears stated age. Dressed appropriately for weather. Behavior Calm, cooperative, pleasant. Good posture.. No abnormal movements. Speech Normal, clear, regular rate, rhythm and volume Affect constricted Mood Anxious and Depressed Thought Process Organized, logical, and goal directed Thought Content Denies suicidal and homicidal ideation Perception Denies auditory and visual hallucinations. No evidence of delusions. Orientation Appropriate to age, Person, Place, and Time Memory/Concentration Immediate, recent and remote memory intact/ Concentration able to watch a movie [employer] OBJECTIVE: Visit Vitals BP 122/78 (BP Location: Right arm, Patient Position: Sitting, BP Cuff Size: Adult) Pulse 82 Wt 317 lb BMI 39.62 kg/m Smoking Status Never BSA 2.76 m No results found for: TSH Lab Results Component Value Date GLU 96 05/10/2024 CALCIUM 8.7 02/29/2024 NA 139 02/29/2024 K 3.8 02/29/2024 CO2 17.7 (L) 02/29/2024 BUN 40.0 (H) 02/29/2024 CREATININE 2.43 (H) 02/29/2024 Lab Results Component Value Date WBC 9.4 07/14/2022 No results found for: CHOL No results found for: HDL No results found for: LDLCALC Lab Results Component Value Date TRIG 204 (H) 05/19/2023 ASSESSMENT AND PLAN: Assessment/Plan Major Depression, recurrent severe without psychotic features BRITTANY R/O dysthymia Psych Medication List Seroquel 200mg po daily -target depression Seroquel 25mg bid off label zoloft 100mg every day in pm for 5 days then stop -depression /anxiety Paxil 20mg po in am Ingrezza 60mg per day by Dr Low Ativan .5mg po q8 prn severe anxiety -while transitioning meds Continue with counseling Patient was seen Face to Face, Reviewed chart documents and documentation, Visit time : 30min Follow up -5 weeks documented in this encounter [facility] 05-15-2024 Note Progress Note-Physic brooks Patient: STEVEN WALDEN Age: 64 years Sex: Male : 1960 Associated Diagnoses: None Author: Channing Galvan MD Postoperative Information Postoperative disposition: Postoperative disposition: To PACU. Optimetrix number: Optimetrix number [id number]. Anesthetic utilized: General. Health Status Allergies: Allergic Reactions (Selected) No Known Allergies Physical Examination Vital Signs 05/15/2024 9:19 EST Heart Rate Monitored 63 bpm SpO2 96 % 05/15/2024 9:19 EST Respiratory Rate 16 br/min 05/15/2024 9:19 EST Systolic Blood Pressure 118 mmHg Diastolic Blood Pressure 77 mmHg Blood Pressure Location Left arm Mean Arterial Pressure, Monitered 91 mmHg 05/15/2024 9:19 EST Temperature Axillary 36.5 DegC Pain Assessment: Controlled. General: Awake, Appropriate. Respiratory: Adequate air exchange. Cardiovascular: Stable. Neurological Assessment Anesthetic outcome No anesthetic complications noted. Adequate pain relief. Review / Management Condition: Stable. Plan Transfer/Discharge: Transfer/Discharge Discharge when meets criteria ( To home ). [facility] Comment on above: Result Comment: Elec tronically Signed By: Channing Galvan MD\.br\Date and Time Signed: 05/15/24 14:14 EST 05-15-2024 Note Progress Note-Physic brooks Patient: STEVEN WALDEN Age: 64 years Sex: Male : 1960 Associated Diagnoses: None Author: Channing Galvan MD Preoperative Information Anesthesia Preop Info: Time patient last ate or drank 05/15/2024 00:00:00. Anesthesia history: Patient history: None. Family history+: None. Informed consent: Signed by patient. Re-evaluation prior to induction: Initial evaluation reviewed: No significant change. Review of Systems Eye Ear/Nose/Mouth/Throat Respiratory: No shortness of breath, No cough. 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 Gastrointestinal: No heartburn. Musculoskeletal Neurologic Health Status Allergies: Allergic Reactions (Selected) No Known Allergies, Allergies (1) Active Severity Reaction No Known Allergies None Documented Current medications: (Selected) Inpatient Medications Ordered Sodium Chloride 0.9% IV Radha 1000 mL 1,000 mL: 1,000 mL, IV, 150 mL/hr, Routine, Start date 05/15/24 6:00:00 EST, 6.7 hour(s), Total volume (mL): 1,000, 143 kg, 2.75, m2 Prescriptions Prescribed Keflex 500 mg Cap: 500 mg = 1 cap(s), Oral, q12hr, postop, # 20 cap(s), Refills(s) 0, Pharmacy: [facility]/pharmacy #[id number], 190, cm, 05/03/24 12:23:00 EST, Height/Length Dosing, 143, kg, 05/03/24 12:23:00 EST, Weight Dosing [place] 325 mg-5 mg oral tablet: 1 tab(s), Oral, q6hr for severe pain for 3 day(s), 12 tab(s), Refill(s) 0, [facility]/pharmacy #[id number], 190, cm, 05/03/24 12:23:00 EST, Height/Length Dosing, 143, kg, 05/03/24 12:23:00 EST, Weight Dosing tadalafil 5 mg oral tablet: 5 mg = 1 tab(s), Oral, q72hr, X 30 day(s), # 10 tab(s), Refills(s) 11, Pharmacy: [facility]/pharmacy #[id number], 190, cm, 05/03/24 12:23:00 EST, Height/Length Dosing, 143, kg, 05/03/24 12:23:00 EST, Weight Dosing Documented Medications Documented #####: 200 EA, 0 Refill(s), USE DIRECTED UNDER THE SKIN TWICE DAILY HumuLIN R [employer]Pen (Concentrated) human recombinant 500 units/mL subcutaneous solution: 30 mL, 0 Refill(s), INJECT 30 - 40 - 50 UNITS SUBCUTANEOUSLY TWICE A DAY DIRECTED (EXPECT DOSE OF 150 UNITS DAILY), Refills(s) 0, Blood glucose Ingrezza 60 mg oral capsule: 60 mg = 1 cap(s), Oral, Daily, 30 cap(s), 0 Refill(s) Tardive dyskinesia, Refills(s) 0, Other (see comment) Trulicity 1.5 mg/0.5 mL subcutaneous solution: See Instructions, On Mondays, Refills(s) 0 allopurinol 100 mg Tab: 100 mg = 1 tab(s), Oral, Daily, Refills(s) 0, Gout pain atorvastatin 20 mg Tab: 20 mg = 1 tab(s), Oral, Daily, 90 EA, 0 Refill(s), TAKE 1 TABLET BY MOUTH AT BEDTIME, Refills(s) 0, High cholesterol ferrous sulfate 325 mg Tab: 325 mg = 1 tab(s), Oral, Daily, 180 EA, 0 Refill(s), TAKE 1 TABLET BY MOUTH TWICE A DAY, Refills(s) 0, Prophylaxis folic acid 1 mg Tab: 1 mg = 1 tab(s), Oral, Daily, Refills(s) 0, Prophylaxis furosemide 40 mg Tab: 40 mg = 1 tab(s), Oral, Daily, 90 EA, 0 Refill(s), TAKE 1 TABLET BY MOUTH DAILY, Refills(s) 0, diuretic/water pill magnesium oxide: 400 mg, Oral, Daily, Oral, 0 Refill(s), Refills(s) 0, Prophylaxis midodrine 2.5 mg oral tablet: 2.5 mg = 1 tab(s), Oral, Daily, 90 EA, 0 Refill(s), TAKE 1 TABLET BY MOUTH 3 TIMES DAILY WITH MEALS hypotension, Refills(s) 0, Other (see comment) omeprazole 40 mg Cap-DR: 40 mg = 1 cap(s), Oral, Daily, 14 EA, 0 Refill(s), TAKE 1 CAPSULE BY MOUTH IN THE MORNING BEFORE MEAL *MUST MAKE APPOINTMENT*, Refills(s) 0, Control of stomach acid potassium chloride 20 mEq ER Tab: 20 mEq = 1 tab(s), Oral, Daily, Oral, 0 Refill(s), Refills(s) 0, Prophylaxis quetiapine 200 mg Tab: 200 mg = 1 tab(s), Oral, Bedtime, Refills(s) 0, Sleep sertraline 100 mg Tab: 100 mg = 1 tab(s), Oral, BID, Refills(s) 0, Depression sodium bicarbonate 650 mg Tab: 1,300 mg = 2 tab(s), Oral, BID, 360 EA, 0 Refill(s), TAKE 2 TABLETS BY MOUTH TWICE A DAY, Refills(s) 0, Prophylaxis, Home Medications (19) Active ##### 0 allopurinol 100 mg Tab 100 mg = 1 tab(s), Oral, Daily atorvastatin 20 mg Tab 20 mg = 1 tab(s), Oral, Daily ferrous sulfate 325 mg Tab 325 mg = 1 tab(s), Oral, Daily folic acid 1 mg Tab 1 mg = 1 tab(s), Oral, Daily furosemide 40 mg Tab 40 mg = 1 tab(s), Oral, Daily HumuLIN R KwikPen (Concentrated) human recombinant 500 units/mL subcutaneous solution Ingrezza 60 mg oral capsule 60 mg = 1 cap(s), Oral, Daily Keflex 500 mg Cap 500 mg = 1 cap(s), Oral, q12hr magnesium oxide 400 mg, Oral, Daily midodrine 2.5 mg oral tablet 2.5 mg = 1 tab(s), Oral, Daily [place] 325 mg-5 mg oral tablet 1 tab(s), PRN, Oral, q6hr omeprazole 40 mg Cap-DR 40 mg = 1 cap(s), Oral, Daily potassium chloride 20 mEq ER Tab 20 mEq = 1 tab(s), Oral, Daily quetiapine 200 mg Tab 200 mg = 1 tab(s), Oral, Bedtime sertraline 100 mg Tab 100 mg = 1 tab(s), Oral, BID sodium bicarbonate 650 mg Tab 1,300 mg = 2 tab(s), Oral, BID tadalafil 5 mg oral tablet 5 mg = 1 tab(s), Oral, q72hr Trulicity 1.5 mg/0.5 mL subcutaneous solution See Instructions , Medications (1) A (more content not included)... [facility] Comment on above: Result Comment: Elec tronically Signed By: Renny ROMERO, Channing Salvador\.br\Date and Time Signed: 05/15/24 14:13 EST 05-15-2024 Evaluation + Plan note Extrac heather from: Title:ANES Post-operative Note---General Author: Channing Galvan MD Date:05/15/24 Plan Transfer/Discharge: Transfer/Discharge Discharge when meets criteria ( To home ). Extracted from: Title:ANES Pre-operative Note 2022 Author:Channing Lynn Date:05/15/24 Plan [employer] (ASA) physical status classification: Class III. Anesthetic Preoperative Plan: Anesthesia General. Extracted from: Title:EU- Dorsal slit Author:Sun Quach MD Da te:05/15/24 Impression and Plan Diagnosis Phimosis ([id number]-ON N47.1, Discharge, Medical). Diagnosis Phimosis ([id number] N47.1, Discharge, Medical). Future Appointments Appointment Date:05/30/2024 08:15:00 AM Scheduled Provider:Sun Quach MD Location:[facility] Appointment Type:URO Office Visit [facility] 02-04-2025 Hospital Discharge instructions Patient Education 05/15/2024 09:16:19 Post Op Patient Instructions - FT (CUSTOM) 05/15/2024 08:53:22 Cook Post-Op Instructions for Circumcision (Custom) [facility] Post-Operative Instructions for Circumcision Wound * Multiple stitches will run along the length of your incision, with some knots * Expect some mild swelling, redness and drainage * There may be initial black and blue discoloration (bruising) on the penis, which may then turn yellowish-brown in color over time * Your stitches will begin to dissolve over time, or your urologist may want to remove some stitches at your follow up visit Wound Care * An ice pack may be placed over the penis for about 48 hours (15 minutes on and 15 minutes off). Frozen peas or ice in a plastic bag may also be used * The gauze may be removed and replaced as needed after 48 hours * You may shower 24 hours after surgery, patting the skin dry around the area * Antibiotic ointment may be applied after the first 1-2 weeks * Tub baths, swimming, or soaking the penis should be avoided for about two weeks Diet * You may resume your normal diet within 24 hours of your surgery, starting with a light meal the first evening Activity * You should restrict activities for the first 48 hours * Avoid heavy lifting (anything over 10 pounds) for about one week * Avoid strenuous exercise until the penis is no longer sore Medications * You may resume your home medications unless instructed otherwise. * Ok to resume aspirin, ibuprofen, Coumadin (warfarin) and other blood thinners after 24 hours * You will be given a pain medication and most likely an antibiotic * You may take acetaminophen (Tylenol) but keep in mind that some of your pain medicine may containacetaminophen *Take colace to prevent constipation from pain meds. Drink plenty of fluids *Apply polysporin to incision twice a day Things to watch for which would require an Emergency Room Visit or call 911 (This is not a completelist) *Fever over 101.5 degrees Fahrenheit, with or without chills, severe bleeding * Severe drug reactions, with itching, hives or rash, or severe flank pain * Tenderness or swelling of the calves, chest pain, or shortness of breath * Severe redness with increasing pain and swelling of the penis Please call the office to arrange for your post-operative appointment in 2-3 weeks [phone] or [phone] 05/15/2024 08:53:22 Circumcision, Adult, Care After Circumcision, Adult, Care After The following information offers guidance on how to care for yourself after your procedure. Your health care provider may also give you more specific instructions. If you have problems or questions, contact your health care provider. What can I expect after the procedure? After the procedure, it is common to have redness, swelling, and soreness in the incision area. Follow these instructions at home: Medicines Take or apply uhnx-[id number] and prescription medicines only as told by your health care provider. If you were prescribed an antibiotic medicine, use it as told by your health care provider. Do not stop using the antibiotic even if you start to feel better. Bathing Do not get your incision area wet for 24 hours after the procedure or as told by your health care provider. Do not take baths, swim, or use a hot tub until your health care provider approves. Ask your healthcare provider if you may take showers. You may only be allowed to take sponge baths. When you can shower, do not rub the incision area. Gently pat it dry. Incision care Follow instructions from your health care provider about how to take care of your incision. Make sure you: ?Wash your hands with soap and water for at least 20 seconds before and after you change your bandage (dressing). If soap and water are not available, use hand concrete pipe machine operator. ?Change your dressing as told by your health care provider. ?Leave stitches (sutures) in place. They will be absorbed over time. Check your incision area every day for signs of infection. Check for: ?More redness, swelling, or pain. ?Warmth. ?More fluid or blood. ?Pus or a bad smell. Managing pain and swelling If directed, put ice on the painful area. To do this: Put ice in a plastic bag. Place a towel between your skin and the bag. Leave the ice on for 20 minutes, 2 3 times a day. Remove the ice if your skin turns bright red. This is very important. If you cannot feel pain, heat, or cold, you have a greater risk of damage to the area. Activity If you were given a sedative during the procedure, it can affect you for several hours. Do not drive or operate machinery until your health care provider says that it is safe. You may have to avoid lifting. Ask your health care provider how much you can safely lift. Do not have sex until your health care provider approves. Rest as told by your health care provider. Return to your normal activities as told by your health care provider. Ask your health care provider what activities are safe for you. Avoid contact sports and biking until your health care provider approves. General instructions Do not use any products that contain nicotine or tobacco. These products include cigarettes, chewing tobacco, and vaping devices, such as e-cigarettes. These can delay incision healing after surgery.If you need help quitting, ask your health care provider. Drink enough fluid to keep your urine pale yellow. Keep all follow-up visits. This is important. Contact a health care provider if: You have a fever. Medicine does not help your pain. You have more redness, swelling, or pain around your incision. Your incision feels warm to the touch. You have more fluid or blood coming from your incision. You have pus or a bad smell coming from your incision. Your incision breaks open. Get help right away if: You cannot urinate, or you have pain when you urinate. Redness, swelling, and pain spread up to the shaft of your penis, thighs, or lower abdomen. You have bleeding that does not stop when you apply pressure. Summary After the procedure, it is common to have redness, swelling, and soreness around the incision area. Follow instructions from your health care provider about how to take care of your incision. Check your incision area every day for signs of infection. Do not have sex until your health care provider approves. This information is not intended to replace advice given to you by your health care provider. Make sure you discuss any questions you have with your health care provider. Document Revised: 03/29/2022 Document Reviewed: 03/29/2022 [employer] Patient Education 2023 [place]. Follow Up Care 04/18/2024 09:18:57 With:Sun Quach Address: [address] [place] [phone] Business (1) When: Unknown Comments:Call for followup appointment in 2-3 weeks for postop check [facility] 02-04-2025 NotePatient Education - Text [facility] Post-Operative Instructions for Circumcision Wound * Multiple stitches will run along the length of your incision, with some knots * Expect some mild swelling, redness and drainage * There may be initial black and blue discoloration (bruising) on the penis, which may then turn yellowish-brown in color over time * Your stitches will begin to dissolve over time, or your urologist may want to remove some stitches at your follow up visit Wound Care * An ice pack may be placed over the penis for about 48 hours (15 minutes on and 15 minutes off). Frozen peas or ice in a plastic bag may also be used * The gauze may be removed and replaced as needed after 48 hours * You may shower 24 hours after surgery, patting the skin dry around the area * Antibiotic ointment may be applied after the first 1-2 weeks * Tub baths, swimming, or soaking the penis should be avoided for about two weeks Diet * You may resume your normal diet within 24 hours of your surgery, starting with a light meal the first evening Activity * You should restrict activities for the first 48 hours * Avoid heavy lifting (anything over 10 pounds) for about one week * Avoid strenuous exercise until the penis is no longer sore Medications * You may resume your home medications unless instructed otherwise. * Ok to resume aspirin, ibuprofen, Coumadin (warfarin) and other blood thinners after 24 hours * You will be given a pain medication and most likely an antibiotic * You may take acetaminophen (Tylenol) but keep in mind that some of your pain medicine may containacetaminophen *Take colace to prevent constipation from pain meds. Drink plenty of fluids *Apply polysporin to incision twice a day Things to watch for which would require an Emergency Room Visit or call 911 (This is not a completelist) *Fever over 101.5 degrees Fahrenheit, with or without chills, severe bleeding * Severe drug reactions, with itching, hives or rash, or severe flank pain * Tenderness or swelling of the calves, chest pain, or shortness of breath * Severe redness with increasing pain and swelling of the penis Please call the office to arrange for your post-operative appointment in 2-3 weeks [phone] or [phone] Urology Circumcision, Adult, Care After The following information offers guidance on how to care for yourself after your procedure. Your health care provider may also give you more specific instructions. If you have problems or questions, contact your health care provider. What can I expect after the procedure? After the procedure, it is common to have redness, swelling, and soreness in the incision area. Follow these instructions at home: Medicines ??? Take or apply [id number]-cvqqkkm and prescription medicines only as told by your health care provider. ??? If you were prescribed an antibiotic medicine, use it as told by your health care provider. Do not stop using the antibiotic even if you start to feel better. Bathing ??? Do not get your incision area wet for 24 hours after the procedure or as told by your health care provider. ??? Do not take baths, swim, or use a hot tub until your health care provider approves. Ask your health care provider if you may take showers. You may only be allowed to take sponge baths. ??? When you can shower, do not rub the incision area. Gently pat it dry. Incision care ??? Follow instructions from your health care provider about how to take care of your incision. Make sure you: ? Wash your hands with soap and water for at least 20 seconds before and after you change your bandage (dressing). If soap and water are not available, use hand concrete pipe machine operator. ? Change your dressing as told by your health care provider. ? Leave stitches (sutures) in place. They will be absorbed over time. ??? Check your incision area every day for signs of infection. Check for: ? More redness, swelling, or pain. ? Warmth. ? More fluid or blood. ? Pus or a bad smell. Managing pain and swelling If directed, put ice on the painful area. To do this: ??? Put ice in a plastic bag. ??? Place a towel between your skin and the bag. ??? Leave the ice on for 20 minutes, 2?3 times a day. ??? Remove the ice if your skin turns bright red. This is very important. If you cannot feel pain, heat, or cold, you have a greater risk of damage to the area. Activity ??? If you were given a sedative during the procedure, it can affect you for several hours. Do not drive or operate machinery until your health care provider says that it is safe. ??? You may have to avoid lifting. Ask your health care provider how much you can safely lift. ??? Do not have sex until your health care provider approves. ??? Rest as told by your health (more content not included)...[facility]01-[facility]25 History of Present illness Narrative* Francisco Houser MD - 05/10/2024 9:30 AM EST Images from the original note were not included. Steven Walden is a 64 y.o. male No ref. provider found presents with chief complaint of Diabetes HPI: Interim history: 04/2024 Follow-up visit on 05/10/2024, A1c 8.1, bg 96, on U-500 30-60 units bid, on Trulicity 3 mg weekly. GFR 33 ON 04/2024. Interim history: 12/2023 Follow-up visit on 01/05/2024, A1c 8.4, bg 277, on U-500 30-50 units bid, on Trulicity 3 mg weekly, meter 0-31-67 avg 200. Anxiety. Interim history: 08/2023 Follow-up visit on 09/08/2023, A1c 7.8, bg 221, on U-500 30-50 units bid, on Trulicity 3 mg weekly, meter 0-33-67 avg 208. anxiety +. lab cr 2.04, TC 167, TG 90 ,HDL 49, LDL 100, VIT D 20. Interim history: 03/2023. Follow-up visit on 03/16/2023, A1c 7.1, bg 226, on U-500 40-80 units bid, on Trulicity 3 mg weekly, meter 2-54-44 avg 175. very bad shape with shaking tremor Interim history: 11/2022. Follow-up visit on 12/01/2022 , A1c 8.4, bg 279, on U-500 60-80 units bid, on Trulicity 3 mg weekly,had new ESRD on HD off now, meter -32-67 avg 230 Interim history: 07/2022. Follow-up visit on 08/05/2022 , A1c 8.1, bg 292, off U-500 50 units tid. on Trulicity 3 mg weekly, had new ESRD on HD and they stop U-500 and started him on lantus 35 units only. Interim history: 06/2022. Follow-up visit on 06/17/2022 , U-500 50 units tid. Trulicity 3 mg weekly ( not sure still 0.75 in his log book), , bg 204, in the hospital they cut his U-500 and start him on farxia 10 mg and kreneda,meter 3-34-62 %, avg 192. Interim history: 04/2022. Follow-up visit on 04/21/2022 , U-500 150- 200 units tid. Trulicity 3 mg weekly, A1c in the office 7.8 , bg 108. Interim history: 11/2021. Follow-up visit on 11/30/2021, U-500 200 units tid. Trulicity 3 mg weekly, A1c in the office 7.8 , bg 140, meter 129-333 avg 234. lab TC 179, HDL 40 ,TG 155, LDL 108, CR 1.51, GFR 48, TSH 1.82, FT 0.94 (0.78-1.46). Interim history: 08/2021. Follow-up visit on 08/17/2021, U-500 200 units tid. truliciry 1.5 mg weekly, A1c in the office 9.8 , bg 138, meter 69-347 avg 192. Interim history: 05/2021. Follow-up visit on 06/08/2021, U-500 200 units tid. A1c in the office 10.2, bg 358, off metformin, off rybelsus not covered Interim history: 02/2021. Follow-up visit on 03/10/2021, U-500 200 units tid. A1c in the office 10.9, bg 321, off metformin, did not start rybelsus yet Interim history: 11/2020. Follow-up visit on 11/25/2020, U-500 200 units tid. A1c in the office 11, bg 268, he wants to stop metformin due to GI symptoms Interim history: 08/2020. Follow-up visit on 08/11/2020 He thinks that U-500 works better. he is on 150 units ac plus scale, last GFR 51 in , A1c in the office 12.2, bg 408 Interim history: 04/2020. Follow-up visit on 04/24/2020 He thinks that U-500 works better. he is on 150 units ac plus scale 1:5. Ozempic 1 mg. Labs still pending. Interim history: 01/2020. Follow-up visit on 01/17/2020 for CGM interpretation, average 237, 3% in low range, 16 in good range, 81 in high range. He thinks that U-500 works better. I told him to take 100 at breakfast, 100 at lunch, 125 plus scale 1:5. He used up to 150 twice a day and Ozempic 1 mg. Labs still pending. HPI: 12/2019 New Patient: 12/2019. New patient sent from Dr. Darion Randle for uncontrolled diabetes. A1c recently 13.2. He used to be onU-500 almost 50 units per pen, actual 3 times a day then switched to Levemir 100 twice a day, Humalog almost 60 twice a day so almost using 350 units daily plus Ozempic once weekly. Insurance does not cover , off metformin due to kidney issues and blood sugar in the office 367. He is morbidly obese. Body mass index greater than 46. He has some glaucoma and he has numbness and tingling in hisfeet. Denies coronary artery disease. SUBJECTIVE: MEDICATIONS: Current Outpatient Medications Medication Instructions allopurinol (ZYLOPRIM) 100 mg, Oral, Every morning atorvastatin (LIPITOR) 20 mg, Oral, Daily ferrous sulfate 325 (65 Fe) MG tablet 1 tablet, 2 times daily folic acid (Folvite) 1 MG tablet 1 tablet, Daily furosemide (LASIX) 40 mg, Daily Ingrezza 60 mg, Oral, Daily Insulin Regular Human (HUMULIN R U-500 KWIKPEN SC) Inject under the skin. 50-80 units BID Lancets (Seplat Pet[employer] Development CompanyTouch Delica Plus [id number]) misc USE DIRECTED THREE TIMES A DAY LORazepam (ATIVAN) 1-2 mg, Oral, See admin instructions, Take 30 minutes prior to procedure. magnesium oxide (MAG-OX) 400 mg, Oral, Daily midodrine (PROAMATINE) 2.5 mg, Daily omeprazole (PRILOSEC) 40 mg, Oral, Daily RT, Do not crush or chew. [employer] Verio test strip pen needle 31G x 6 mm misc Subcutaneous, 2 times daily potassium chloride CR (K-Tab) 20 MEQ ER tablet 20 mEq, Daily QUEtiapine (SEROQUEL) 200 mg, Oral, Nightly QUEtiapine (SEROQUEL) 25 mg, Oral, 2 times daily PRN sertraline (ZOLOFT) 200 mg, Oral, Daily sodium bicarbonate 650 mg, 2 times daily tadalafil (CIALIS) 5 mg, Daily thiamine (VITAMIN B-1) 100 mg, Oral, Daily triamcinolone (Kenalog) 0.1 % cream 1 application , 2 times daily Trulicity 3 mg, Subcutaneous, Weekly ALLERGIES: No Known Allergies Past Medical History: Diagnosis Date Acute idiopathic gout of left foot 12/05/2022 Acute kidney injury superimposed on CKD ([facility]) 05/28/2022 Acute respiratory alkalosis 07/19/2023 Adjustment disorder with depressed mood (CMS/HCC) 08/10/2022 Anxiety Atrophy of right kidney 05/15/2018 Cholecystitis COVID 03/31/2022 CPAP (continuous positive airway pressure) dependence Depression (CMS/HCC) Diabetes mellitus type 2, controlled, without complications (CMS/HCC) Diverticulosis Encounter for long-term (current) use of high-risk medication Finger fracture, right 12/29/2021 5th digit fracture Gout H/O CT scan of abdomen 07/15/2022 Bilateral non obstructing renal calculi.Left double Jejunum ureter stennt is no longer present at the left and urethra stone is no longer visualize. History of being hospitalized 07/19/2022 [facility] - syncope after dalysis History of being hospitalized 05/27/2022 Acute Renal Failure History of being hospitalized 04/2018 Cellulitis and sepsis @ [facility] History of being hospitalized 06/[address] [facility] x7 [address] [facility] History of [place] [facility] [place] of psychiatric hospitalization May 2023 [facility] 1 week Hx of complete electrocardiogram 08/11/2016 echo EF 70% LV wall thickness is mildy increased. No Regional wall Motion abnormality Hx of CT scan of abdomen 02/01/2017 Non-obstructing right Nephrolithiasis and right Renal atrophy Hx of CT scan of head 06/26/2022 No acute intrcraial abnormality Hx of electrocardiogram 06/09/2021 Normal Ventricular LVEF is 65%-70%.No significant valvular dysfunction Normal right sided pressures, mildly diated ascending aorts. No pericardial effusion. Hypertension (CMS/HCC) Kidney failure Kidney stones LVH (left ventricular hypertrophy) CONCLUSION: 1. Mild concentric left ventricular hypertrophy with normal ventricular systolic function. LVEF is 55 to 60%. 2. Normal right ventricular size and systolic function. 3. No significant valvular dysfunction. 4. Mildly dilated ascending aorta and aortic root. 5. Unable to assess right-sided pressures due to lack of measurable tricuspid regurgitation. 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 Panic attack (CMS/HCC) Renal atrophy Sleep apnea in adult 09/08/2022 stones Vitamin D deficiency Past Surgical History: Procedure Laterality Date CARDIAC CATHETERIZATION 08/2016 CHOLECYSTECTOMY 2010 COLONOSCOPY 06/2018 ESOPHAGOGASTRODUODENOSCOPY 06/2018 EYE EXAM 2013 EYE EXAM 2012 FINGER FRACTURE SURGERY Right 5thdigit; pins and plates at [facility] [place] CYSTOSCOPY,INSERT URETHRAL STENT 05/2022 TUNNEL DIALYSIS CATHETER EXCHANGE 06/28/2022 WISDOM TOOTH EXTRACTION 1979 REVIEW OF SYMPTOMS: 14 POINT OF SYSTEM REVIEWED AND NEGATIVE OBJECTIVE: Constitutional: Afebrile @ home; no weakness or night sweats SKIN: No change in skin color; no itching, rash or lesions; no hair loss; HEENT: No HAs or injury; no dizziness; No difficulty with vision; no eye pain, discharge or lesions; no hearing loss or difficulty; no nasal discharge, NECK: No pain, limitation of motion, lumps or swollen glands RESP: No cough, wheezing or difficulty breathing. No CP with breathing; CARDIO: No CP , SOB or fatigue, No edema, palpitations or dyspnea with exertion GI: No N/V/D or abd. pain; good appetite with no recent change. No heart burn, liver or gallbladderdisease; no rectal bleeding or pain : No urinary pain , frequency or odor. MUSCULOSKELETAL: No muscle pain or cramps; no extremity weakness.No joint pain, stiffness, swellingor limitation of movement NEUROLOGY: No H/O seizures, stroke or fainting. No weakness, tremors. Hematology: No bleeding problems or excessive bruising ENDOCRINE: No increase in hunger, thirst or urination; admits compliance to medical management plan Feet: numbness tingling yes , ulcers or skin break no Lab Results Component Value Date HGBA1C 8.1 05/10/2024 HGBA1C 8.2 01/05/2024 HGBA1C 8.4 12/01/2022 Lab Results Component Value Date GLU 96 05/10/2024 GLU 275 (H) 02/29/2024 GLU 176 01/05/2024 12/15/2023 12:56 PM 01/05/2024 9:38 AM 02/09/2024 12:52 PM 02/23/2024 8:24 AM 03/29/2024 9:26 AM 04/19/2024 2:05 PM 05/10/2024 9:25 AM Vitals BMI 38.37 kg/m2 38.5 kg/m2 39.12 kg/m2 39.25 kg/m2 39.37 kg/m2 39.97 kg/m2 40.25 kg/m2 BSA (m2) 2.71 m2 2.72 m2 2.74 m2 2.74 m2 2.75 m2 2.77 m2 2.78 m2 Systolic 118 142 130 116 104 110 Diastolic 78 92 86 68 78 70 Heart Rate 97 72 98 60 63 SpO2 99 % 99 % Resp 18 16 18 Height (in) 6' 3 6' 3 6' 3 6' 3 Weight (lb) 307 308 313 314 315 319.8 322 Visit Report Report Report Report Report Report Report Report ASSESSMENT AND PLAN: Assessment/Plan Diagnoses and all orders for this visit: Type 2 diabetes mellitus with diabetic neuropathic arthropathy, with long-term current use of insulin (CMS/HCC) - POCT glycosylated hemoglobin (Hb A1C) docked device - POCT glucose manually resulted - Dulaglutide (Trulicity) 3 MG/0.5ML solution auto-injector; Inject 3 mg under the skin 1 (one) time per week Continue U-500 30-60 units every meal, Trulicity 3 mg once weekly. Primary hypertension (CMS/HCC) Hyperlipemia, mixed (CMS/HCC) Insulin long-term use (CMS/HCC) Vitamin D deficiency Encounter for dietary consultation Diet and exercise reviewed with the patient High risk medication use Class 3 severe obesity due to excess calories with serious comorbidity and body mass index (BMI) of40.0 to 44.9 in adult (CMS/HCC) He is on U-500 insulin Follow up in about 4 months (around 09/07/2024). documented in this encounterColumbia Regional [id number] Telephone encounter Note* Telephone Encounter - Dolores Coats - 04/30/2024 2:41 PM EST Patients called in letting us know that patient seen a urologist at [facility] and they wantto get a CT scan of patients kidneys. Patient is anxious about having the test done and still has some ativan 2mg left from last January. Patient would like to know if he can take one prior to test. I told patient I would send Lexis a message and contact them back with recommendations. [facility] [id number] Miscellaneous Notes* Telephone Encounter - Dolores Coats - 04/30/2024 2:41 PM EST Patients called in letting us know that patient seen a urologist at [facility] and they wantto get a CT scan of patients kidneys. Patient is anxious about having the test done and still has some ativan 2mg left from last January. Patient would like to know if he can take one prior to test. I told patient I would send Lexis a message and contact them back with recommendations. documented in this encounterColumbia Regional [id number] History of Present illness Narrative* THANH Haro - 04/19/2024 2:00 PM EST Images from the original note were not included. HPI Med Refill Additional comments: Omeprazole and Allopurinol Last edited by Alia Schilling LPN on 04/19/2024 2:02 PM. Subjective Patient ID: Steven Walden is a 64 y.o. male who presents for GERD Steven is present today for follow up GERD. He is currently on Omeprazole and is working well for him. Is scheduled for a procedure with Dr. Sun Quach in May. States his Tardive Dyskinesia symptoms have improved with the Ingrezza. Current Outpatient Medications on File Prior to Visit Medication Sig Dispense Refill ferrous sulfate 325 (65 Fe) MG tablet Take 1 tablet by mouth in the morning and 1 tablet before bedtime. tadalafil (Cialis) 5 MG tablet Take 5 mg by mouth Daily triamcinolone (Kenalog) 0.1 % cream Apply 1 application topically in the morning and 1 application before bedtime. atorvastatin (Lipitor) 20 MG tablet Take 1 tablet (20 mg) by mouth in the morning. 100 tablet 4 dulaglutide (Trulicity) 3 MG/0.5ML solution pen-injector Inject 3 mg under the skin 1 (one) time per week. folic acid (Folvite) 1 MG tablet Take 1 tablet by mouth Daily furosemide (Lasix) 40 MG tablet Take 40 mg by mouth in the morning. Insulin Regular Human (HUMULIN R U-500 KWIKPEN SC) Inject under the skin. 50-80 units BID Lancets (Seplat Pet[employer] Development CompanyTouch Delica Plus [id number]) misc USE DIRECTED THREE TIMES A DAY magnesium oxide (Mag-Ox) 400 (240 Mg) MG tablet Take 400 mg by mouth Daily midodrine (Proamatine) 2.5 MG tablet Take 2.5 mg by mouth Daily Daily in the morning, may take second dose if dizzy and BP is low OneTouch Verio test strip pen needle 31G x 6 mm misc Inject under the skin 2 (two) times a day 200 each 3 potassium chloride CR (K-Tab) 20 MEQ ER tablet Take 20 mEq by mouth Daily QUEtiapine (SEROquel) 200 MG tablet Take 1 tablet (200 mg) by mouth at bedtime 30 tablet 2 QUEtiapine (SEROquel) 25 MG tablet Take 1 tablet (25 mg) by mouth 2 (two) times a day as needed (Anxiety) 60 tablet 2 sertraline (Zoloft) 100 MG tablet Take 2 tablets (200 mg) by mouth Daily 60 tablet 2 sodium bicarbonate 650 MG tablet Take 650 mg by mouth in the morning and 650 mg before bedtime. thiamine (Vitamin B-1) 100 MG tablet Take 1 tablet (100 mg) by mouth Daily 90 tablet 3 Valbenazine Tosylate (Ingrezza) 60 MG capsule Take 60 mg by mouth Daily 90 capsule 3 [DISCONTINUED] allopurinol (Zyloprim) 100 MG tablet TAKE 1 TABLET BY MOUTH EVERY DAY IN THE [id number] tablet 0 [DISCONTINUED] biotin 10 MG tablet Take 1 tablet by mouth Daily (Patient not taking: Reported on 03/29/2024) [DISCONTINUED] magnesium oxide (Mag-Ox) 400 mg tablet Take 1 tablet (400 mg) by mouth Daily (Patient not taking: Reported on 03/29/2024) 90 tablet 3 [DISCONTINUED] omeprazole (PriLOSEC) [address] capsule TAKE 1 CAPSULE BY MOUTH IN THE MORNING BEFOREMEAL 14 capsule 0 [DISCONTINUED] QUEtiapine (SEROquel) 100 MG tablet Take 1.5 tablets (150 mg) by mouth at bedtime 45tablet 2 [DISCONTINUED] sertraline (Zoloft) 100 MG tablet Take 1.5 tablets (150 mg) by mouth Daily 45 tablet2 No current facility-administered medications on file prior to visit. I have reviewed and reconciled the history and medication list with the patient today. No Known Allergies Social History Tobacco Use Smoking status: Never Smokeless tobacco: Never Vaping Use Vaping status: Never Used Substance Use Topics Alcohol use: Not Currently Comment: no caffiene; Drug use: Never Family History Problem Relation Name Age of Onset Other (Other) Mother Pacemaker MD2 Heart disease Mother Other (Other) Father Lungs deformed Depression Father Stroke Father Obesity Sister half sister Diabetes Sister half sister Kidney cancer Sister half sister Past Medical History: Diagnosis Date Acute idiopathic gout of left foot 12/05/2022 Acute kidney injury superimposed on CKD ([facility]) 05/28/2022 Acute respiratory alkalosis 07/19/2023 Adjustment disorder with depressed mood ([facility]) 08/10/2022 Anxiety Atrophy of right kidney 05/15/2018 Cholecystitis COVID 03/31/2022 CPAP (continuous positive airway pressure) dependence Depression ([facility]) Diabetes mellitus type 2, controlled, without complications ([facility]) Diverticulosis Encounter for long-term (current) use of high-risk medication Finger fracture, right 12/29/2021 5th digit fracture Gout H/O CT scan of abdomen 07/15/2022 Bilateral non obstructing renal calculi.Left double Jejunum ureter stennt is no longer present at the left and urethra stone is no longer visualize. History of being hospitalized 07/19/2022 [facility] - syncope after dalysis History of being hospitalized 05/27/2022 Acute Renal Failure History of being hospitalized 04/2018 Cellulitis and sepsis @ [facility] History of being hospitalized 06/[address] [facility] x7 and 6 days [facility] [place] of [place] [facility] [place] of psychiatric hospitalization May 2023 [facility] 1 week Hx of complete electrocardiogram 08/11/2016 echo EF 70% LV wall thickness is mildy increased. No Regional wall Motion abnormality Hx of CT scan of abdomen 02/01/2017 Non-obstructing right Nephrolithiasis and right Renal atrophy Hx of CT scan of head 06/26/2022 No acute intrcraial abnormality Hx of electrocardiogram 06/09/2021 Normal Ventricular LVEF is 65%-70%.No significant valvular dysfunction Normal right sided pressures, mildly diated ascending aorts. No pericardial effusion. Hypertension (CMS/[facility]) Kidney failure Kidney stones LVH (left ventricular hypertrophy) CONCLUSION: 1. Mild concentric left ventricular hypertrophy with normal ventricular systolic function. LVEF is 55 to 60%. 2. Normal right ventricular size and systolic function. 3. No significant valvular dysfunction. 4. Mildly dilated ascending aorta and aortic root. 5. Unable to assess right-sided pressures due to lack of measurable tricuspid regurgitation. 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 Panic attack (CMS/HCC) Renal atrophy Sleep apnea in adult 09/08/2022 stones Vitamin D deficiency Past Surgical History: Procedure Laterality Date CARDIAC CATHETERIZATION 08/2016 CHOLECYSTECTOMY 2010 COLONOSCOPY 06/2018 ESOPHAGOGASTRODUODENOSCOPY 06/2018 EYE EXAM 2013 EYE EXAM 2012 FINGER FRACTURE SURGERY Right 5thdigit; pins and plates at [facility] [place] CYSTOSCOPY,INSERT URETHRAL STENT 05/2022 TUNNEL DIALYSIS CATHETER EXCHANGE 06/28/2022 WISDOM TOOTH EXTRACTION 1980 Visit Vitals BP 104/78 Pulse 60 Resp 16 Ht 6' 3 Wt 319 lb 12.8 oz SpO2 99% BMI 39.97 kg/m Smoking Status Never BSA 2.77 m Review of Systems Constitutional: Negative for chills, fatigue and fever. Respiratory: Negative for cough, shortness of breath and wheezing. Cardiovascular: Negative for chest pain, palpitations and leg swelling. Gastrointestinal: Negative for abdominal pain, constipation, diarrhea, nausea and vomiting. Skin: Negative for rash. Objective Physical Exam Constitutional: General: He is not in acute distress. Appearance: He is obese. HENT: Head: Normocephalic and atraumatic. Eyes: General: No scleral icterus. Cardiovascular: Rate and Rhythm: Normal rate and regular rhythm. Heart sounds: No murmur heard. Pulmonary: Effort: Pulmonary effort is normal. No respiratory distress. Breath sounds: Normal breath sounds. No wheezing, rhonchi or rales. Comments: Taking frequent deep breaths Musculoskeletal: General: No swelling. Skin: General: Skin is warm and dry. Neurological: General: No focal deficit present. Mental Status: He is alert and oriented to person, place, and time. Psychiatric: Mood and Affect: Mood is anxious and depressed. Affect is flat. Behavior: Behavior is withdrawn. Comments: Limited eye contact Assessment/Plan Diagnoses and all orders for this visit: Primary hypertension (CMS/HCC) Patient's blood pressure is currently well controlled. Continue with current medications and I willcontinue to monitor. Goal BP remains less than 130/80. Need for vaccination - influenza, injectable, quadrivalent, PF free ([id number]) (Fluzone / Fluarix / Alluria / Flulaval Quadrivalent) Provided pt with flu shot today, she tolerated this well. Idiopathic chronic gout without tophus, unspecified site - allopurinol (Zyloprim) 100 MG tablet; Take 1 tablet (100 mg) by mouth in the morning. Refill provided on the above. Pt states gets mild symptoms periodically, but overall feels his symptoms are well controlled. Duodenal ulcer - omeprazole (PriLOSEC) [address] capsule; Take 1 capsule (40 mg) by mouth in the morning. Do not crush or chew.. Symptoms stable at this time. Refill provided on the above. Type 2 diabetes mellitus with diabetic chronic kidney disease (CMS/HCC) The patient is seeing a medical billing representative for this condition, treatment is deferred to that specialist. Correspondence from that specialist and any available testing were reviewed during today's visit. Chronic kidney disease, stage 4 (severe) (CMS/HCC) The patient is seeing a medical billing representative for this condition, treatment is deferred to that specialist. Correspondence from that specialist and any available testing were reviewed during today's visit. Type 2 diabetes mellitus with hyperglycemia (CMS/HCC) The patient is seeing a medical billing representative for this condition, treatment is deferred to that specialist. Correspondence from that specialist and any available testing were reviewed during today's visit. Type 2 diabetes mellitus with diabetic peripheral angiopathy without gangrene (CMS/HCC) The patient is seeing a medical billing representative for this condition, treatment is deferred to that specialist. Correspondence from that specialist and any available testing were reviewed during today's visit. Morbid (severe) obesity due to excess calories (CMS/HCC) Encouraged portion control, decrease simple sugars and carbohydrates, gradually increase activity level. Aim for gradual steady weight loss. Pure hyperglyceridemia (CMS/HCC) The patient is seeing a medical billing representative for this condition, treatment is deferred to that specialist. Correspondence from that specialist and any available testing were reviewed during today's visit. Body mass index (BMI) 39.0-39.9, adult See above. Type 2 diabetes mellitus with diabetic polyneuropathy (CMS/HCC) The patient is seeing a medical billing representative for this condition, treatment is deferred to that specialist. Correspondence from that specialist and any available testing were reviewed during today's visit. [facility] (current) use of insulin (CMS/HCC) The patient is seeing a medical billing representative for this condition, treatment is deferred to that specialist. Correspondence from that specialist and any available testing were reviewed during today's visit. Type 2 diabetes mellitus with other specified complication (CMS/HCC) The patient is seeing a medical billing representative for this condition, treatment is deferred to that specialist. Correspondence from that specialist and any available testing were reviewed during today's visit. Mixed hyperlipidemia (CMS/HCC) Will continue to monitor with routine labs. Continue Atorvastatin as prescribed. Type 2 diabetes mellitus with diabetic neuropathic arthropathy (CMS/HCC) The patient is seeing a medical billing representative for this condition, treatment is deferred to that specialist. Correspondence from that specialist and any available testing were reviewed during today's visit. Major depressive disorder, recurrent severe without psychotic features (HCC) (CMS/HCC) The patient is seeing a medical billing representative for this condition, treatment is deferred to that specialist. Correspondence from that specialist and any available testing were reviewed during today's visit. Follow up in about 3 months (around 07/18/2024) for Medicare Wellness Visit. documented in this encounterColumbia Regional [id number] Hospital Discharge instructions Patient Education 04/18/2024 08:59:20 Benign Prostatic Hyperplasia Benign Prostatic Hyperplasia Benign prostatic hyperplasia (BPH) is an enlarged prostate gland that is caused by the normal agingprocess. The prostate may get bigger as a man gets older. The condition is not caused by cancer. The prostate is a walnut-sized gland that is involved in the production of semen. It is located in front of the rectum and below the bladder. The bladder stores urine. The urethra carries stored urine ou t of the body. An enlarged prostate can press on the urethra. This can make it harder to pass urine. The buildup of urine in the bladder can cause infection. Back pressure and infection may progress to bladder damage and kidney (renal) failure. What are the causes? This condition is part of the normal aging process. However, not all men develop problems from thiscondition. If the prostate enlarges away from the urethra, urine flow will not be blocked. If it enlarges toward the urethra and compresses it, there will be problems passing urine. What increases the risk? This condition is more likely to develop in men older than 50 years. What are the signs or symptoms? Symptoms of this condition include: Getting up often during the night to urinate. Needing to urinate frequently during the day. Difficulty starting urine flow. Decrease in size and strength of your urine stream. Leaking (dribbling) after urinating. Inability to pass urine. This needs immediate treatment. Inability to completely empty your bladder. Pain when you pass urine. This is more common if there is also an infection. Urinary tract infection (UTI). How is this diagnosed? This condition is diagnosed based on your medical history, a physical exam, and your symptoms. Tests will also be done, such as: A post-void bladder scan. This measures any amount of urine that may remain in your bladder after you finish urinating. A digital rectal exam. In a rectal exam, your health care provider checks your prostate by putting a lubricated, gloved finger into your rectum to feel the back of your prostate gland. This exam detects the size of your gland and any abnormal lumps or growths. An exam of your urine (urinalysis). A prostate specific antigen (PSA) screening. This is a blood test used to screen for prostate cancer. An ultrasound. This test uses sound waves to electronically produce a picture of your prostate gland. Your health care provider may refer you to a specialist in kidney and prostate diseases (urologist). How is this treated? Once symptoms begin, your health care provider will monitor your condition (active surveillance or watchful waiting). Treatment for this condition will depend on the severity of your condition. Treatment may include: Observation and yearly exams. This may be the only treatment needed if your condition and symptoms are mild. Medicines to relieve your symptoms, including: ?Medicines to shrink the prostate. ?Medicines to relax the muscle of the prostate. Surgery in severe cases. Surgery may include: ?Prostatectomy. In this procedure, the prostate tissue is removed completely through an open incision or with a laparoscope or robotics. ?Transurethral resection of the prostate (TURP). In this procedure, a tool is inserted through the opening at the tip of the penis (urethra). It is used to cut away tissue of the inner core of the prostate. The pieces are removed through the same opening of the penis. This removes the blockage. ?Transurethral incision (TUIP). In this procedure, small cuts are made in the prostate. This lessens the prostate's pressure on the urethra. ?Transurethral microwave thermotherapy (TUMT). This procedure uses microwaves to create heat. The heat destroys and removes a small amount of prostate tissue. ?Transurethral needle ablation (TUNA). This procedure uses radio frequencies to destroy and remove a small amount of prostate tissue. ?Interstitial laser coagulation (ILC). This procedure uses a laser to destroy and remove a small amount of prostate tissue. ?Transurethral electrovaporization (TUVP). This procedure uses electrodes to destroy and remove a small amount of prostate tissue. ?Prostatic urethral lift. This procedure inserts an implant to push the lobes of the prostate away from the urethra. Follow these instructions at home: Take kqxi-iiz-ntteptj and prescription medicines only as told by your health care provider. Monitor your symptoms for any changes. Contact your health care provider with any changes. Avoid drinking large amounts of liquid before going to bed or out in public. Avoid or reduce how much caffeine or alcohol you drink. Give yourself time when you urinate. Keep all follow-up visits. This is important. Contact a health care provider if: You have unexplained back pain. Your symptoms do not get better with treatment. You develop side effects from the medicine you are taking. Your urine becomes very dark or has a bad smell. Your lower abdomen becomes distended and you have trouble passing urine. Get help right away if: You have a fever or chills. You suddenly cannot urinate. You feel light-headed or very dizzy, or you faint. There are large amounts of blood or clots in your urine. Your urinary problems become hard to manage. You develop moderate to severe low back or flank pain. The flank is the side of your body between the ribs and the hip. These symptoms may be an emergency. Get help right away. Call 911. Do not wait to see if the symptoms will go away. Do not drive yourself to the hospital. Summary Benign prostatic hyperplasia (BPH) is an enlarged prostate that is caused by the normal aging process. It is not caused by cancer. An enlarged prostate can press on the urethra. This can make it hard to pass urine. This condition is more likely to develop in men older than 50 years. Get help right away if you suddenly cannot urinate. This information is not intended to replace advice given to you by your health care provider. Make sure you discuss any questions you have with your health care provider. Document Revised: 10/14/2021 Document Reviewed: 10/14/2021 [employer] Patient Education 2023 [place]. Follow Up Care 03/16/2024 15:09:21 With:Main ROMERO, Sun Bright, URL, URO Address: When: Unknown [facility] 01-08-2025 NoteUrology Office/Clinic Note Chief Complaint referral HPI Staff 64yr old male referred by Fani Dill MD for nephrolithiasis w/ KUB. KUB completed 04/12/24. Pt has CKD from history of DAISY from obstructive nephropathy. Pt was previously on dialysis. Pt also has right atrophic kidney. Dysuria: _yes Incomplete bladder emptying: _unsure Hematuria: _no Frequency: _q30-40 mins Urgency: _yes Nocturia: _2-3x Stream: weak, stop and go Leaking: _yes Post void dripping: _yes Wearing pads/ Depends: _no Urge incontinence: _yes Stress incontinence: _no Incontinence without Sensory Awareness: _no Abdominal pain: _occasional Flank pain: _no Sexual complaints: _ History of Present Illness Tests reviewed: reviewed UA, KUB, external records including notes, labs I have reviewed the previous health record information and history for this patient from external provider I have reviewed and verified the staff HPI to be accurate for this encounter. There have been no associated fever, chills, flank pain, or blood in the urine. Denies any urinary infections since last encounter. Review of Systems PHQ Score Initial Depression Screen Score: 6 SCORE Detailed Depression Screen Score: 18 Total Depression Screen Score: 24 ROS - Provider Constitutional: denies weight loss, denies hot flashes. Eyes: denies eye problems. Gastrointestinal: denies nausea, denies vomiting. Cardiovascular: denies chest pain or angina. Integumentary: no dryness Musculoskeletal: denies musculoskeletal symptoms. ENMT: denies otolaryngeal symptoms. Respiratory: no shortness of breath. Heme/Lymph: denies easy bleeding tendency, denies easy bruising tendency. Psychiatric: no confusion, no anxiety. Genitourinary: See HPI. Physical Exam Vitals & Measurements T: 37 ???C(Oral) HR: 72(Peripheral) BP: 112/82 HT: 72 in HT: 184 cm WT: 160 kg WT: 352.739 lb BMI: 47.26 General Appearance: alert, no distress, well nourished, well developed male. Head: normocephalic . Eyes: normal orbit and globe. ENMT: normal examination of external ears. Genitourinary: normal scrotum, normal testes, normal epididymis, normal vas deferens/spermatic cord. Penis: severe phimosis, near pin point opening. Buried phallus, suprapubic fat pad, obese Psychiatric: cooperative, affect anxious, normal judgement, euthymic mood. Assessment/Plan 64 yo male with hx of anxiety, diabetes, CKD, kidney stones, hyperparathyroidism referred by Dr. Fani Dill for nephrolithiasis. Pt accompanied by today. Denies hx of CVA or PR. Not on anticoagulation. PSH ~appendectomy. ANTONIO 0 1. Kidney stone (N20.0: Calculus of kidney) Admitted 06/2022 with DAISY and CKD requiring hemodialysis. DAISY secondary to obstructing left ureteral stone. S/p cysto and stent placement in [place]. Per referral notes, pt is no longer following withurology. CT [place]22[place] [facility] [place] There is asymmetrical atrophy of the right kidney when compared to theleft with a nonobstructing calculus involving the right renal pelvis measuring 12 mm in greatest axial dimension. KUB 04/13/24 [facility] - 1.3 cm R nephrolith. 2.2 cm left nephrolith. Labs 02/29/24 Uric acid - 6.4 (3.5-72) PTH - 162 (15-65) Pt does have hyperparathyroidism, taking OTC vitamin D supplement 2000 units qd. Taking Allopurinolfor hyperuricemia. Recommended repeating CT to analyze stones more thoroughly. Will treat any left sided stones to prevent renal failure in solitary kidney. Pt agrees with plan. -[place] CT [place] [facility] [place] -Cont hyperPTH care with nephrology 2. Renal atrophy (N26.1: Atrophy of kidney (terminal)) CT AP [place] con 02/22/23 [facility] [place] There is asymmetrical atrophy of the right kidney when compared to theleft. Reports he has been aware of renal atrophy since 2022. Occasional right sided flank pain. Pt states pain is not horrendous . Discussed NM renal scan to further eval overall renal function. Pt willing to proceed. -See #1 and 2 -Present to the ER with fever, chills, N/V, any signs of infection -[place] NM renal [place]/ [place] [facility] 3. CKD (chronic kidney disease) (N18.9: Chronic kidney disease, unspecified) Follows with Dr. Dill. CKD secondary to DAISY from obstructive uropathy. See #1. Renal function 02/29/24 - Cr 2.43, eGFR 27 -Cont care with nephrology -See #1 and 2 4. BPH with urinary obstruction (N40.1: Benign prostatic hyperplasia with lower urinary tract symptoms) CT AP wo con 02/22/23 [facility] [place] Prostate gland is normal in size. Per personal measurement, 30g. IPSS 20. PVR 158 mL UA today shows trace-intact blood and small leuks. Diabetic. Per pt, last A1c was around 8. Discussed how uncontrolled diabetes affects urination and overall bladder health. Pt reports he has had difficult catheterization in the past, told it was scar tissue. Mentions he did not tolerate this well. Could benefit from dilation in the future. Reports he is having dysuria, hesitancy, post void dribbli (more content not included)...[facility] HospitalComment on above:Result Comment: Electronically Signed By: Sun Quach MD\.br\Date and Time Signed: 04/18/24 09:27EST\.br\Electronically Co-Signed By: Eugenie Zabala.br\Date and Time Co-Signed: 04/18/24 09:14 [id number] NotePatient Education Urology Benign Prostatic Hyperplasia Benign prostatic hyperplasia (BPH) is an enlarged prostate gland that is caused by the normal agingprocess. The prostate may get bigger as a man gets older. The condition is not caused by cancer. The prostate is a walnut-sized gland that is involved in the production of semen. It is located in front of the rectum and below the bladder. The bladder stores urine. The urethra carries stored urine ou t of the body. An enlarged prostate can press on the urethra. This can make it harder to pass urine. The buildup of urine in the bladder can cause infection. Back pressure and infection may progress to bladder damage and kidney (renal) failure. What are the causes? This condition is part of the normal aging process. However, not all men develop problems from thiscondition. If the prostate enlarges away from the urethra, urine flow will not be blocked. If it enlarges toward the urethra and compresses it, there will be problems passing urine. What increases the risk? This condition is more likely to develop in men older than 50 years. What are the signs or symptoms? Symptoms of this condition include: ??? Getting up often during the night to urinate. ??? Needing to urinate frequently during the day. ??? Difficulty starting urine flow. ??? Decrease in size and strength of your urine stream. ??? Leaking (dribbling) after urinating. ??? Inability to pass urine. This needs immediate treatment. ??? Inability to completely empty your bladder. ??? Pain when you pass urine. This is more common if there is also an infection. ??? Urinary tract infection (UTI). How is this diagnosed? This condition is diagnosed based on your medical history, a physical exam, and your symptoms. Tests will also be done, such as: ??? A post-void bladder scan. This measures any amount of urine that may remain in your bladder after you finish urinating. ??? A digital rectal exam. In a rectal exam, your health care provider checks your prostate by putting a lubricated, gloved finger into your rectum to feel the back of your prostate gland. This exam detects the size of your gland and any abnormal lumps or growths. ??? An exam of your urine (urinalysis). ??? A prostate specific antigen (PSA) screening. This is a blood test used to screen for prostate cancer. ??? An ultrasound. This test uses sound waves to electronically produce a picture of your prostate gland. Your health care provider may refer you to a specialist in kidney and prostate diseases (urologist). How is this treated? Once symptoms begin, your health care provider will monitor your condition (active surveillance or watchful waiting). Treatment for this condition will depend on the severity of your condition. Treatment may include: ??? Observation and yearly exams. This may be the only treatment needed if your condition and symptoms are mild. ??? Medicines to relieve your symptoms, including: ? Medicines to shrink the prostate. ? Medicines to relax the muscle of the prostate. ??? Surgery in severe cases. Surgery may include: ? Prostatectomy. In this procedure, the prostate tissue is removed completely through an open incision or with a laparoscope or robotics. ? Transurethral resection of the prostate (TURP). In this procedure, a tool is inserted through theopening at the tip of the penis (urethra). It is used to cut away tissue of the inner core of the prostate. The pieces are removed through the same opening of the penis. This removes the blockage. ? Transurethral incision (TUIP). In this procedure, small cuts are made in the prostate. This lessens the prostate's pressure on the urethra. ? Transurethral microwave thermotherapy (TUMT). This procedure uses microwaves to create heat. The heat destroys and removes a small amount of prostate tissue. ? Transurethral needle ablation (TUNA). This procedure uses radio frequencies to destroy and removea small amount of prostate tissue. ? Interstitial laser coagulation (ILC). This procedure uses a laser to destroy and remove a small amount of prostate tissue. ? Transurethral electrovaporization (TUVP). This procedure uses electrodes to destroy and remove a small amount of prostate tissue. ? Prostatic urethral lift. This procedure inserts an implant to push the lobes of the prostate awayfrom the urethra. Follow these instructions at home: ??? Take glzk-dwe-sbpburd and prescription medicines only as told by your health care provider. ??? Monitor your symptoms for any changes. Contact your health care provider with any changes. ??? Avoid drinking large amounts of liquid before going to bed or out in public. ??? Avoid or reduce how much caffeine or alcohol you drink. ??? Give yourself time when you urinate. ??? Keep all follow-up visits. This is important. Contact a health care provider if: ??? You have unexplained back pain. ??? Your symptoms do not get (more content not included)...[facility] History of Present illness Narrative* Lexis Keen, REVERBERATORY FURNACE SUPERVISOR-[employer] - 03/29/2024 9:30 AM EST Images from the original note were not included. Steven Walden is a 64 y.o. male presents for Medication Management. HPI: Patient is here for medication follow up. Patient has decompensated since last appt. Patient states more sad at eugenio time. Mood is reported as depressed and rates 5 (10worst). Anxiety is 7 (10worst). Sleeping excessively 12 hours goes to bed 2am. Medication compliant. No reported side effects. Denies abuse of substances. Medical problems since last visit. Saw resistance welder and being referred to urologist. Also saw Dr Low. Psychosocial stressors include Holiday. Anxious about upcoming urology appt. Triggers to depression holidays. Holiday parties overwhelming. SUBJECTIVE: PAST MEDICAL HISTORY: Past Medical History: Diagnosis Date Adjustment disorder with depressed mood (CMS/HCC) 08/10/2022 Anxiety Atrophy of right kidney 05/15/2018 Cholecystitis COVID 03/31/2022 CPAP (continuous positive airway pressure) dependence Depression (CMS/HCC) Diabetes mellitus type 2, controlled, without complications (CMS/HCC) Diverticulosis Encounter for long-term (current) use of high-risk medication Finger fracture, right 12/29/2021 5th digit fracture Gout H/O CT scan of abdomen 07/15/2022 Bilateral non obstructing renal calculi.Left double Jejunum ureter stennt is no longer present at the left and urethra stone is no longer visualize. History of being hospitalized 07/19/2022 [facility] - syncope after dalysis History of being hospitalized 05/27/2022 Acute Renal Failure History of being hospitalized 04/2018 Cellulitis and sepsis @ [facility] History of being hospitalized 06/[address] [facility] [address] [facility] History of psychiatric hospitalization 02[place]20[place] [facility] History of psychiatric hospitalization May 2023 [facility] X 1 week Hx of complete electrocardiogram 08/11/2016 echo EF 70% LV wall thickness is mildy increased. No Regional wall Motion abnormality Hx of CT scan of abdomen 02/01/2017 Non-obstructing right Nephrolithiasis and right Renal atrophy Hx of CT scan of head 06/26/2022 No acute intrcraial abnormality Hx of electrocardiogram 06/09/2021 Normal Ventricular LVEF is 65%-70%.No significant valvular dysfunction Normal right sided pressures, mildly diated ascending aorts. No pericardial effusion. Hypertension (CMS/HCC) Kidney failure Kidney stones LVH (left ventricular hypertrophy) CONCLUSION: 1. Mild concentric left ventricular hypertrophy with normal ventricular systolic function. LVEF is 55 to 60%. 2. Normal right ventricular size and systolic function. 3. No significant valvular dysfunction. 4. Mildly dilated ascending aorta and aortic root. 5. Unable to assess right-sided pressures due to lack of measurable tricuspid regurgitation. 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 Panic attack (CMS/HCC) Renal atrophy Sleep apnea in adult 09/08/2022 stones Vitamin D deficiency ALLERGIES: No Known Allergies SURGICAL HISTORY: Past Surgical History: Procedure Laterality Date CARDIAC CATHETERIZATION 08/2016 CHOLECYSTECTOMY 2010 COLONOSCOPY 06/2018 ESOPHAGOGASTRODUODENOSCOPY 06/2018 EYE EXAM 2013 EYE EXAM 2012 FINGER FRACTURE SURGERY Right 5thdigit; pins and plates at [facility] [place] CYSTOSCOPY,INSERT URETHRAL STENT 05/2022 TUNNEL DIALYSIS CATHETER EXCHANGE 06/28/2022 WISDOM TOOTH EXTRACTION 1979 FAMILY HISTORY: Family History Problem Relation Name Age of Onset Other (Other) Mother Pacemaker MD2 Heart disease Mother Other (Other) Father Lungs deformed Depression Father Stroke Father Obesity Sister half sister Diabetes Sister half sister Kidney cancer Sister half sister SOCIAL HISTORY: Social History Tobacco Use Smoking status: Never Smokeless tobacco: Never Vaping Use Vaping status: Never Used Substance Use Topics Alcohol use: Not Currently Comment: no caffiene; Drug use: Never Depression: At risk (02/09/2024) PHQ-2 PHQ-2 Score: 4 REVIEW OF SYMPTOMS - MENTAL STATUS EXAM Appearance Appearance: Disheveled Attitude Attitude: Poor eye contact. Behavior Guarded. Speech Normal, clear, regular rate, rhythm and volume Affect Flat Mood Depressed and Anxious Thought Process Organized and Clear Thought Content No Suicidal Ideation and No Homicidal ideation Perception No perceptual abnormalities noted Orientation Appropriate to age, Person, Place, and Time Memory/Concentration Short term intact and group home intact Insight/Judgement Poor OBJECTIVE: Visit Vitals Smoking Status Never No results found for: TSH Lab Results Component Value Date GLU 275 (H) 02/29/2024 CALCIUM 8.7 02/29/2024 NA 139 02/29/2024 K 3.8 02/29/2024 CO2 17.7 (L) 02/29/2024 BUN 40.0 (H) 02/29/2024 CREATININE 2.43 (H) 02/29/2024 Lab Results Component Value Date WBC 9.4 07/14/2022 No results found for: CHOL No results found for: HDL No results found for: LDLCALC Lab Results Component Value Date TRIG 204 (H) 05/19/2023 ASSESSMENT AND PLAN: Assessment/Plan Major Depression, recurrent severe without psychotic features BRITTANY R/O dysthymia Psych Medication List Seroquel 200mg po daily -target depression Seroquel 25mg bid off label Increase zoloft 100mg bid -depression /anxiety Patient was seen Face to Face, Reviewed chart documents and documentation, Visit time : 35min Follow up 6 weeks * Dolores Coats - 03/29/2024 9:30 AM EST Patient reports increased anxiety. Patient reports night times are worse, patient stated he feels like the meds are not working. Patients reports patient has been crying a lot more than usual and is more irritable. Patient reports being easily triggered. documented in this encounterColumbia Regional [id number] NoteUT Cardiology - [facility] Subjective Steven Walden is a 64 y.o. year old male patient being seen for 6 mo follow up coronary myocardial bridge, hypertension, and hyperlipidemia. Had EKG and lipid panel a few months ago after last apt. He denies chest pain. Says his GA remains unchanged. Lightheadedness hasn't been as bad since he's off dialysis. Hasn't been taking midodrine as much. He sees Dr. Dill with [facility]. Denies palpitations and LE edema also. Patient Active Problem List Diagnosis Finger injury, right, initial encounter Acute kidney injury superimposed on CKD ([facility]) Adjustment disorder with depressed mood DAISY (acute kidney injury) ([facility]) Anxiety Atrophy of right kidney Bandemia Chest pain Chronic gouty arthritis Constipation Urinary tract obstruction by kidney stone Tremor Syncope Stage 3 chronic kidney disease ([facility]/HCC) Pyelonephritis of left kidney Pure hyperglyceridemia Primary gout Polyneuropathy due to type 2 diabetes mellitus ([facility]) Primary hypertension Orthostatic hypotension Obstructive sleep apnea syndrome Obesity Mononeuropathy of lower extremity Moderate major depression, single episode ([facility]) Migraine without aura, not refractory Metabolic acidosis Major depressive disorder, recurrent, moderate (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) Left ureteral stone Hyponatremia Hyperlipidemia History of hydronephrosis History of anemia of chronic disease BRITTANY (generalized anxiety disorder) ESRD (end stage renal disease) (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) Diabetic neuropathic arthropathy ([facility]) Diabetes mellitus type 2 in obese Diabetes mellitus ([facility]) Dependent on hemodialysis ([facility]) Debility Coronary-myocardial bridge Lymphedema Diabetes mellitus due to underlying condition, uncontrolled, with hyperglycemia ([facility]) Class 3 severe obesity due to excess calories with body mass index (BMI) of 40.0 to 44.9 in adult ([facility]) Peripheral vascular disease ([facility]) Acute cystitis without hematuria Acute respiratory alkalosis Benign prostatic hyperplasia Confusion Diabetic renal disease ([facility]) Hyperventilation Insomnia Microalbuminuric diabetic nephropathy ([facility]) Migraine headache Nephrosclerosis Panic attack Poorly controlled diabetes mellitus ([facility]) Screening PSA (prostate specific antigen) UTI (urinary tract infection) Anemia Folate deficiency Hyperparathyroid bone disease ([facility]) Hypokalemia Nephrolithiasis Severe recurrent major depression without psychotic features ([facility]) Tardive dyskinesia Family History Family history unknown: Yes Social History Tobacco Use Smoking status: Never Smokeless tobacco: Never Vaping Use Vaping status: Never Used Substance Use Topics Alcohol use: Never Drug use: Never HPI Steven is seen in follow-up. He is a 64-year-old man with prior history of diabetes, hypertension, Hyperlipidemia, PAD and leg cellulitis followed by vascular surgery. He has a history of chronic kidney disease. A in 2016 he was evaluated due to symptoms of chest pain and cardiac catheterization showed normal coronary arteries with mid LAD myocardial bridging. more recently has been having issues with tardive dyskinesia and he was started on Ingrezza. A follow-up ECG in July 2023 showed sinus rhythm with normal QTc. Today he reports that he has been about the same. No chest pain. He has some shortness of breath on exertion. He has still been dealing with a lot of anxiety issues. Review of Systems Constitutional: Positive for weight gain (33# since July 2023). Cardiovascular: Positive for dyspnea on exertion. Respiratory: Positive for snoring. Psychiatric/Behavioral: The patient is nervous/anxious. All other systems reviewed and are negative. Objective Visit Vitals BP 112/80 (BP Location: Right arm, Patient Position: Sitting) Pulse 86 Ht 1.905 m (6' 3 ) Wt (!) 144 kg (318 lb) SpO2 96% BMI 39.75 kg/m??? Smoking Status Never BSA 2.76 m??? Physical Exam Constitutional: Appearance: He is well-developed. He is obese. He is not ill-appearing. HENT: Head: Normocephalic and atraumatic. Nose: Nose normal. Eyes: General: No scleral icterus. Pupils: Pupils are equal, round, and reactive to light. Neck: Thyroid: No thyromegaly. Vascular: No JVD. Cardiovascular: Rate and Rhythm: Normal rate and regular rhythm. Pulses: Radial pulses are 2+ on the right side and 2+ on the left side. Heart sounds: Normal heart sounds. No murmur heard. No friction rub. No gallop. Pulmonary: Effort: Pulmonary effort is normal. No respiratory distress. Breath sounds: Normal breath sounds. No wheezing or rales. Chest: Chest wall: No tenderness. Abdomin (more content not included)...[facility] 02-23-2024 History of Present illness Narrative* Gordo Low MD - 02/23/2024 8:20 AM EST Images from the original note were not included. CHIEF COMPLAINT REASON FOR VISIT: Tardive Dyskinesia HPI: Steven Walden is a 64 y.o. male who presents for a follow up. He states he has been doing very well.He states he is a lot less shaky. No symptoms. But he does have some trouble sleeping. He will stayup all night and sleep all day, Appetite is good. He states that he has been a little more anxious than usual. HE states his A1C is a little elevated. But manages his sugars with trulicity. He does ge t some numbness and tingling. Denies any other concerns. CURRENT MEDICATIONS: ALLERGIES/DISCONTINUE MEDICATIONS Current Outpatient Medications Medication Instructions allopurinol (ZYLOPRIM) 100 mg, Oral, Every morning atorvastatin (LIPITOR) 20 mg, Oral, Daily biotin 10 MG tablet 1 tablet, Daily folic acid (Folvite) 1 MG tablet 1 tablet, Daily furosemide (LASIX) 40 mg, Daily Ingrezza 60 mg, Oral, Daily Insulin Regular Human (HUMULIN R U-500 KWIKPEN SC) Inject under the skin. 50-80 units BID Lancets (Freebeepayuch Delica Plus [id number]) misc USE DIRECTED THREE TIMES A DAY magnesium oxide (MAG-OX) 400 mg, Oral, Daily magnesium oxide (MAG-OX) 400 mg, Daily midodrine (PROAMATINE) 2.5 mg, Daily omeprazole (PRILOSEC) 40 mg, Oral, Daily before breakfast [employer] Verio test strip pen needle 31G x 6 mm misc Subcutaneous, 2 times daily potassium chloride CR (K-Tab) 20 MEQ ER tablet 20 mEq, Daily QUEtiapine (SEROQUEL) 150 mg, Oral, Nightly QUEtiapine (SEROQUEL) 25 mg, Oral, 2 times daily PRN sertraline (ZOLOFT) 150 mg, Oral, Daily sodium bicarbonate 650 mg, 2 times daily thiamine (VITAMIN B-1) 100 mg, Oral, Daily Trulicity 3 mg, Weekly No Known Allergies There are no discontinued medications. PAST MEDICAL HISTORY: SURGICAL/SOCIAL/FAMILY HISTORY DEPRESSION SCREEN: Past Medical History: Diagnosis Date Adjustment disorder with depressed mood ([facility]) 08/10/2022 Anxiety Atrophy of right kidney 05/15/2018 Cholecystitis COVID 03/31/2022 CPAP (continuous positive airway pressure) dependence Depression ([facility]) Diabetes mellitus type 2, controlled, without complications (CMS/[facility]) Diverticulosis Encounter for long-term (current) use of high-risk medication Finger fracture, right 12/29/2021 5th digit fracture Gout H/O CT scan of abdomen 07/15/2022 Bilateral non obstructing renal calculi.Left double Jejunum ureter stennt is no longer present at the left and urethra stone is no longer visualize. History of being hospitalized 07/19/2022 [facility] - syncope after dalysis History of being hospitalized 05/27/2022 Acute Renal Failure History of being hospitalized 04/2018 Cellulitis and sepsis @ [facility] History of being hospitalized 06/[address] [facility] x7 and [address] [facility] History of psychiatric hospitalization [place] [facility] History of psychiatric hospitalization May [address] [facility] X 1 week Hx of complete electrocardiogram 08/11/2016 echo EF 70% LV wall thickness is mildy increased. No Regional wall Motion abnormality Hx of CT scan of abdomen 02/01/2017 Non-obstructing right Nephrolithiasis and right Renal atrophy Hx of CT scan of head 06/26/2022 No acute intrcraial abnormality Hx of electrocardiogram 06/09/2021 Normal Ventricular LVEF is 65%-70%.No significant valvular dysfunction Normal right sided pressures, mildly diated ascending aorts. No pericardial effusion. Hypertension (CMS/HCC) Kidney failure Kidney stones LVH (left ventricular hypertrophy) CONCLUSION: 1. Mild concentric left ventricular hypertrophy with normal ventricular systolic function. LVEF is 55 to 60%. 2. Normal right ventricular size and systolic function. 3. No significant valvular dysfunction. 4. Mildly dilated ascending aorta and aortic root. 5. Unable to assess right-sided pressures due to lack of measurable tricuspid regurgitation. 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 Panic attack (CMS/HCC) Renal atrophy Sleep apnea in adult 09/08/2022 stones Vitamin D deficiency Past Surgical History: Procedure Laterality Date CARDIAC CATHETERIZATION 08/2016 CHOLECYSTECTOMY 2010 COLONOSCOPY 06/2018 ESOPHAGOGASTRODUODENOSCOPY 06/2018 EYE EXAM 2014 EYE EXAM 2013 FINGER FRACTURE SURGERY Right 5thdigit; pins and plates at [facility] [place],INSERT URETHRAL STENT 05/2022 TUNNEL DIALYSIS CATHETER EXCHANGE 06/28/2022 WISDOM TOOTH EXTRACTION 1979 Social History Tobacco Use Smoking status: Never Smokeless tobacco: Never Vaping Use Vaping status: Never Used Substance Use Topics Alcohol use: Not Currently Comment: no caffiene; Drug use: Never Family History Problem Relation Name Age of Onset Other (Other) Mother Pacemaker MD2 Heart disease Mother Other (Other) Father Lungs deformed Depression Father Stroke Father Obesity Sister half sister Diabetes Sister half sister Kidney cancer Sister half sister Depression: At risk (02/09/2024) PHQ-2 PHQ-2 Score: 4 REVIEW OF SYMPTOMS: Review of Systems Constitutional: Negative for chills, diaphoresis, fatigue and fever. HENT: Negative for ear pain, tinnitus and trouble swallowing. Eyes: Negative for photophobia and visual disturbance. Respiratory: Negative for cough and shortness of breath. Cardiovascular: Negative for palpitations and leg swelling. Gastrointestinal: Negative for abdominal pain and nausea. Genitourinary: Negative for difficulty urinating and urgency. Musculoskeletal: Negative for arthralgias, back pain, myalgias, neck pain and neck stiffness. Neurological: Positive for tremors. Negative for weakness, light-headedness and numbness. Psychiatric/Behavioral: Negative for agitation, confusion and suicidal ideas. OBJECTIVE: 02/23/2024 8:24 AM 02/09/2024 12:52 PM 01/05/2024 9:38 AM Vitals BMI 39.25 kg/m2 39.12 kg/m2 38.5 kg/m2 BSA (m2) 2.74 m2 2.74 m2 2.72 m2 Systolic 130 142 Diastolic 86 92 Heart Rate 72 Resp 18 Height (in) 6' 3 6' 3 Weight (lb) [phone] Visit Report Report Report Report EXAM: Neurological Exam Mental Status Awake, alert and oriented to person, place and time. Oriented to person, place and time. Recent andremote memory are intact. Speech is normal. Language is fluent with no aphasia. Attention and concentration are normal. Cranial Nerves CN II: Visual acuity is normal. Visual skaggs full to confrontation. CN III, IV, : Extraocular movements intact bilaterally. Normal lids and orbits bilaterally. Pupils equal round and reactive to light bilaterally. CN V: Facial sensation is normal. CN VII: Full and symmetric facial movement. CN VIII: Hearing is normal. CN XII: Tongue midline without atrophy or fasciculations. Motor Normal muscle bulk throughout. Normal muscle tone. Right Left Wrist flexion 5 5 Wrist extension 5 5 Right Left Deltoid 5 5 Biceps 5 5 Triceps 5 5 Wrist flexor 5 5 Wrist extensor 5 5 Glutei 5 5 Iliopsoas 5 5 Quadriceps 5 5 Gastrocnemius 5 5 Anterior tibialis 5 5 Posterior tibialis 5 5 Sensory Light touch is normal in upper and lower extremities. Pinprick is normal in upper and lower extremities. Vibration is normal in upper and lower extremities. Reflexes Right Left Brachioradialis 2+ 2+ Biceps 2+ 2+ Patellar 2+ 2+ Achilles 2+ 2+ Right Plantar: downgoing Left Plantar: downgoing Right pathological reflexes: Jez's absent. Ankle clonus absent. Left pathological reflexes: Jez's absent. Ankle clonus absent. Coordination [id number], rapid alternating movements and [id number] normal bilaterally without dysmetria. Gait Normal casual, toe, heel and tandem gait. Romberg is absent. PROCEDURE: NONE ASSESSMENT AND PLAN: Steven Walden is a 63 year old male who presents with tremor in the hands. Possible etiologies include benign essential tremor, extrapyramidal symptoms secondary to medications, or a neurodegenerativeprocess such as Parkinson's disease. An additional consideration would be tremor secondary to a metabolic process or a psychogenic tremor from stress. Diagnoses and all orders for this visit: Tardive dyskinesia Continue Valbenazine Tosylate (Ingrezza) 60 MG capsule; Take 60 mg by mouth Daily Continue magnesium oxide (Mag-Ox) 400 mg tablet; Take 1 tablet (400 mg) by mouth Daily Continue thiamine (Vitamin B-1) 100 MG tablet; Take 1 tablet (100 mg) by mouth Daily as it is good for overall brain and nerve health. I counseled the patient on the possible side effects and interactions of medications. Total time 20 minutes spent reviewing records, performing medically appropriate exam, counseling , education, ordering medication, tests, and/or procedures, documenting health information into the health record, communicating results to the patient, and coordinating care. Stable on current dosing of meds Follow up 3 months documented in this encounterColumbia Regional [id number] History of Present illness Narrative* Lexis Keen, [employer] SUPERVISOR-[employer] PIL[employer] - 02/09/2024 1:00 PM EDT Images from the original note were not included. Steven Walden is a 64 y.o. male presents for Medication Management. HPI: Patient is here for medication follow up. Here with his . Patient has decompensated since last appt. He's feeling more anxious. Mood is reported as depressed and rates 5 (10worst) Anxiety is 6 (10worst).Can be as much as a 7. Sleeping 8-9 hours. Medication compliant. No reported side effects. Denies abuse of substances. No new Medical problems since last visit. Psychosocial stressors include anxious when chaos. Dosnt go in any stores. Patient did get disability. No abnormal movement. Has nephrology appt and neuro. SUBJECTIVE: PAST MEDICAL HISTORY: Past Medical History: Diagnosis Date Adjustment disorder with depressed mood (CMS/HCC) 08/10/2022 Anxiety Atrophy of right kidney 05/15/2018 Cholecystitis COVID 03/31/2022 CPAP (continuous positive airway pressure) dependence Depression (CMS/[facility]) Diabetes mellitus type 2, controlled, without complications (CMS/HCC) Diverticulosis Encounter for long-term (current) use of high-risk medication Finger fracture, right 12/29/2021 5th digit fracture Gout H/O CT scan of abdomen 07/15/2022 Bilateral non obstructing renal calculi.Left double Jejunum ureter stennt is no longer present at the left and urethra stone is no longer visualize. History of being hospitalized 07/19/2022 [facility] syncope [facility] dalysis History of being hospitalized 05/27/2022 Acute Renal Failure History of being hospitalized 04/2018 Cellulitis and sepsis @ [facility] History of being hospitalized 06/[address] [facility] [address] [facility] History of psychiatric [place] [facility] [place] of psychiatric hospitalization May 2023 [facility] 1 week Hx of complete electrocardiogram 08/11/2016 echo EF 70% LV wall thickness is mildy increased. No Regional wall Motion abnormality Hx of CT scan of abdomen 02/01/2017 Non-obstructing right Nephrolithiasis and right Renal atrophy Hx of CT scan of head 06/26/2022 No acute intrcraial abnormality Hx of electrocardiogram 06/09/2021 Normal Ventricular LVEF is 65%-70%.No significant valvular dysfunction Normal right sided pressures, mildly diated ascending aorts. No pericardial effusion. Hypertension (CMS/HCC) Kidney failure Kidney stones LVH (left ventricular hypertrophy) CONCLUSION: 1. Mild concentric left ventricular hypertrophy with normal ventricular systolic function. LVEF is 55 to 60%. 2. Normal right ventricular size and systolic function. 3. No significant valvular dysfunction. 4. Mildly dilated ascending aorta and aortic root. 5. Unable to assess right-sided pressures due to lack of measurable tricuspid regurgitation. 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 Panic attack (CMS/HCC) Renal atrophy Sleep apnea in adult 09/08/2022 stones Vitamin D deficiency ALLERGIES: No Known Allergies SURGICAL HISTORY: Past Surgical History: Procedure Laterality Date CARDIAC CATHETERIZATION 08/2016 CHOLECYSTECTOMY 2011 COLONOSCOPY 06/2018 ESOPHAGOGASTRODUODENOSCOPY 06/2018 EYE EXAM 2013 EYE EXAM 2012 FINGER FRACTURE SURGERY Right 5thdigit; [place] at [facility] [place],INSERT URETHRAL STENT 05/2022 TUNNEL DIALYSIS CATHETER EXCHANGE 06/28/2022 WISDOM TOOTH EXTRACTION 1979 FAMILY HISTORY: Family History Problem Relation Name Age of Onset Other (Other) Mother Pacemaker MD2 Heart disease Mother Other (Other) Father Lungs deformed Depression Father Stroke Father Obesity Sister half sister Diabetes Sister half sister Kidney cancer Sister half sister SOCIAL HISTORY: Social History Tobacco Use Smoking status: Never Smokeless tobacco: Never Vaping Use Vaping status: Never Used Substance Use Topics Alcohol use: Not Currently Comment: no caffiene; Drug use: Never Depression: At risk (12/15/2023) PHQ-2 PHQ-2 Score: 5 REVIEW OF SYMPTOMS - MENTAL STATUS EXAM Appearance dissheveled, casually dressed. Attitude Attitude: Cooperative, conversant, engaged, and with good eye contact. Behavior Cooperative, conversant, engaged, and with good eye contact. Speech Normal, clear, regular rate, rhythm and volume Affect Blunted Mood Depressed, Anxious, and irritable Thought Process Thought blocking Thought Content No Suicidal Ideation and No Homicidal ideation Perception No perceptual abnormalities noted Orientation Appropriate to age, Person, Place, and Time Memory/Concentration Short term intact and buttermaker intact Insight/Judgement Good OBJECTIVE: Visit Vitals Smoking Status Never No results found for: TSH Lab Results Component Value Date GLU 176 01/05/2024 CALCIUM 9.0 09/02/2023 NA 139 09/02/2023 K 3.8 09/02/2023 CO2 18.8 (L) 09/02/2023 BUN 60.0 (H) 09/02/2023 CREATININE 2.04 (H) 09/02/2023 Lab Results Component Value Date WBC 9.4 07/14/2022 No results found for: CHOL No results found for: HDL No results found for: LDLCALC Lab Results Component Value Date TRIG 204 (H) 05/19/2023 ASSESSMENT AND PLAN: Assessment/Plan Major Depression, recurrent severe without psychotic features BRITTANY R/O dysthymia Psych Medication List seroquel 100mg 1 1/2 at night Seroquel 25mg twice a day prn anxiety Zoloft 150mg po daily (Ingrezza 60mg po every day) -ordered Dr Low Continue counseling. Follow up 7weeks assess anxiety late in day with med changes and change in routine Patient was seen Face to Face, Reviewed chart documents and documentation, Visit time :40min * Dolores Coats - 02/09/2024 1:00 PM EDT Patient would like to discuss having anxiety episodes during the evenings. documented in this encounterColumbia Regional [id number] History of Present illness Narrative* Francisco Houser MD - 01/05/2024 9:10 AM EDT Steven Walden is a 63 y.o. male Francisco Houser MD presents with chief complaint of Diabetes HPI: Interim history: 12/2023 Follow-up visit on 01/05/2024, A1c 8.4, bg 277, on U-500 30-50 units bid, on Trulicity 3 mg weekly, meter 0-31-67 avg 200. Anxiety. Interim history: 08/2023 Follow-up visit on 09/08/2023, A1c 7.8, bg 221, on U-500 30-50 units bid, on Trulicity 3 mg weekly, meter 0-33-67 avg 208. anxiety +. lab cr 2.04, TC 167, TG 90 ,HDL 49, LDL 100, VIT D 20. Interim history: 03/2023. Follow-up visit on 03/16/2023, A1c 7.1, bg 226, on U-500 40-80 units bid, on Trulicity 3 mg weekly, meter 2-54-44 avg 175. very bad shape with shaking tremor Interim history: 11/2022. Follow-up visit on 12/01/2022 , A1c 8.4, bg 279, on U-500 60-80 units bid, on Trulicity 3 mg weekly,had new ESRD on HD off now, meter -32-67 avg 230 Interim history: 07/2022. Follow-up visit on 08/05/2022 , A1c 8.1, bg 292, off U-500 50 units tid. on Trulicity 3 mg weekly, had new ESRD on HD and they stop U-500 and started him on lantus 35 units only. Interim history: 06/2022. Follow-up visit on 06/17/2022 , U-500 50 units tid. Trulicity 3 mg weekly ( not sure still 0.75 in his log book), , bg 204, in the hospital they cut his U-500 and start him on farxia 10 mg and kreneda,meter 3-34-62 %, avg 192. Interim history: 04/2022. Follow-up visit on 04/21/2022 , U-500 150- 200 units tid. Trulicity 3 mg weekly, A1c in the office 7.8 , bg 108. Interim history: 11/2021. Follow-up visit on 11/30/2021, U-500 200 units tid. Trulicity 3 mg weekly, A1c in the office 7.8 , bg 140, meter 129-333 avg 234. lab TC 179, HDL 40 ,TG 155, LDL 108, CR 1.51, GFR 48, TSH 1.82, FT 0.94 (0.78-1.46). Interim history: 08/2021. Follow-up visit on 08/17/2021, U-500 200 units tid. truliciry 1.5 mg weekly, A1c in the office 9.8 , bg 138, meter 69-347 avg 192. Interim history: 05/2021. Follow-up visit on 06/08/2021, U-500 200 units tid. A1c in the office 10.2, bg 358, off metformin, off rybelsus not covered Interim history: 02/2021. Follow-up visit on 03/10/2021, U-500 200 units tid. A1c in the office 10.9, bg 321, off metformin, did not start rybelsus yet Interim history: 11/2020. Follow-up visit on 11/25/2020, U-500 200 units tid. A1c in the office 11, bg 268, he wants to stop metformin due to GI symptoms Interim history: 08/2020. Follow-up visit on 08/11/2020 He thinks that U-500 works better. he is on 150 units ac plus scale, last GFR 51 in , A1c in the office 12.2, bg 408 Interim history: 04/2020. Follow-up visit on 04/24/2020 He thinks that U-500 works better. he is on 150 units ac plus scale 1:5. Ozempic 1 mg. Labs still pending. Interim history: 01/2020. Follow-up visit on 01/17/2020 for CGM interpretation, average 237, 3% in low range, 16 in good range, 81 in high range. He thinks that U-500 works better. I told him to take 100 at breakfast, 100 at lunch, 125 plus scale 1:5. He used up to 150 twice a day and Ozempic 1 mg. Labs still pending. HPI: 12/2019 New Patient: 12/2019. New patient sent from Dr. Darion Randle for uncontrolled diabetes. A1c recently 13.2. He used to be onU-500 almost 50 units per pen, actual 3 times a day then switched to Levemir 100 twice a day, Humalog almost 60 twice a day so almost using 350 units daily plus Ozempic once weekly. Insurance does not cover , off metformin due to kidney issues and blood sugar in the office 367. He is morbidly obese. Body mass index greater than 46. He has some glaucoma and he has numbness and tingling in hisfeet. Denies coronary artery disease. SUBJECTIVE: MEDICATIONS: Current Outpatient Medications Medication Instructions allopurinol (ZYLOPRIM) 100 mg, Oral, Every morning atorvastatin (LIPITOR) 20 mg, Oral, Daily biotin 10 MG tablet 1 tablet, Oral, Daily folic acid (Folvite) 1 MG tablet 1 tablet, Oral, Daily furosemide (LASIX) 40 mg, Oral, Daily Ingrezza 60 mg, Oral, Daily Insulin Regular Human (HUMULIN R U-500 KWIKPEN NV) Subcutaneous, 50-80 units BID Lancets (OneTouch Delica Plus [id number]) misc USE DIRECTED THREE TIMES A DAY magnesium oxide (MAG-OX) 400 mg, Oral, Daily midodrine (PROAMATINE) 2.5 mg, Oral, Daily, Daily in the morning, may take second dose if dizzy andBP is low omeprazole (PRILOSEC) 40 mg, Oral, Daily before breakfast [employer] Verio test strip pen needle 31G x 6 mm misc Subcutaneous, 2 times daily potassium chloride CR (K-Tab) 20 MEQ ER tablet 20 mEq, Oral, Daily QUEtiapine (SEROQUEL) 25 mg, Oral, 2 times daily PRN QUEtiapine (SEROQUEL) 100 mg, Oral, Nightly sertraline (ZOLOFT) 150 mg, Oral, Daily sodium bicarbonate 650 mg, Oral, 2 times daily thiamine (VITAMIN B-1) 100 mg, Oral, Daily Trulicity 3 mg, Subcutaneous, Weekly ALLERGIES: No Known Allergies Past Medical History: Diagnosis Date Adjustment disorder with depressed mood ([facility]) 08/10/2022 Anxiety Atrophy of right kidney 05/15/2018 Cholecystitis COVID 03/31/2022 CPAP (continuous positive airway pressure) dependence Depression (CMS/HCC) Diabetes mellitus type 2, controlled, without complications (CMS/[facility]) Diverticulosis Encounter for long-term (current) use of high-risk medication Finger fracture, right 12/29/2021 5th digit fracture Gout H/O CT scan of abdomen 07/15/2022 Bilateral non obstructing renal calculi.Left double Jejunum ureter stennt is no longer present at the left and urethra stone is no longer visualize. History of being hospitalized 07/19/2022 [facility] dalysis History of being hospitalized 05/27/2022 Acute Renal Failure History of being hospitalized 04/2018 Cellulitis and sepsis @ [facility] History of being hospitalized 06/[address] [facility] and 6 [facility] History of psychiatric [place] [facility] [place] of psychiatric hospitalization May 2023 [facility] X 1 week Hx of complete electrocardiogram 08/11/2016 echo EF 70% LV wall thickness is mildy increased. No Regional wall Motion abnormality Hx of CT scan of abdomen 02/01/2017 Non-obstructing right Nephrolithiasis and right Renal atrophy Hx of CT scan of head 06/26/2022 No acute intrcraial abnormality Hx of electrocardiogram 06/09/2021 Normal Ventricular LVEF is 65%-70%.No significant valvular dysfunction Normal right sided pressures, mildly diated ascending aorts. No pericardial effusion. Hypertension (CMS/HCC) Kidney failure Kidney stones LVH (left ventricular hypertrophy) CONCLUSION: 1. Mild concentric left ventricular hypertrophy with normal ventricular systolic function. LVEF is 55 to 60%. 2. Normal right ventricular size and systolic function. 3. No significant valvular dysfunction. 4. Mildly dilated ascending aorta and aortic root. 5. Unable to assess right-sided pressures due to lack of measurable tricuspid regurgitation. 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 Panic attack (CMS/HCC) Renal atrophy Sleep apnea in adult 09/08/2022 stones Vitamin D deficiency Past Surgical History: Procedure Laterality Date CARDIAC CATHETERIZATION 08/2016 CHOLECYSTECTOMY 2010 COLONOSCOPY 06/2018 ESOPHAGOGASTRODUODENOSCOPY 06/2018 EYE EXAM 2013 EYE EXAM 2012 FINGER FRACTURE SURGERY Right 5thdigit; [place] [facility] [place],INSERT URETHRAL STENT 05/2022 TUNNEL DIALYSIS CATHETER EXCHANGE 06/28/2022 WISDOM TOOTH EXTRACTION 1979 REVIEW OF SYMPTOMS: 14 POINT OF SYSTEM REVIEWED AND NEGATIVE OBJECTIVE: Constitutional: Afebrile @ home; no weakness or night sweats SKIN: No change in skin color; no itching, rash or lesions; no hair loss; HEENT: No HAs or injury; no dizziness; No difficulty with vision; no eye pain, discharge or lesions; no hearing loss or difficulty; no nasal discharge, NECK: No pain, limitation of motion, lumps or swollen glands RESP: No cough, wheezing or difficulty breathing. No CP with breathing; CARDIO: No CP , SOB or fatigue, No edema, palpitations or dyspnea with exertion GI: No N/V/D or abd. pain; good appetite with no recent change. No heart burn, liver or gallbladderdisease; no rectal bleeding or pain : No urinary pain , frequency or odor. MUSCULOSKELETAL: No muscle pain or cramps; no extremity weakness.No joint pain, stiffness, swellingor limitation of movement NEUROLOGY: No H/O seizures, stroke or fainting. No weakness, tremors. Hematology: No bleeding problems or excessive bruising ENDOCRINE: No increase in hunger, thirst or urination; admits compliance to medical management plan Feet: numbness tingling , ulcers or skin break Lab Results Component Value Date HGBA1C 8.2 01/05/2024 HGBA1C 8.4 12/01/2022 Lab Results Component Value Date GLU 176 01/05/2024 GLU 165 (H) 09/02/2023 GLU 137 (H) 05/25/2023 Visit Vitals Pulse 72 Resp 18 Comment: O2 SAT 97% Ht 6' 3 Wt 308 lb BMI 38.50 kg/m Smoking Status Never BSA 2.72 m ASSESSMENT AND PLAN: Assessment/Plan Diagnoses and all orders for this visit: Diabetic neuropathy with neurologic complication ([facility]/HCC) - POCT glycosylated hemoglobin (Hb A1C) docked device - POCT glucose manually resulted Continue U-500 30-50 units every meal, Trulicity 3 mg once weekly Primary hypertension ([facility]) Hyperlipemia, mixed ([facility]) Continue Lipitor 20 mg p.o. daily Insulin long-term use ([facility]) Vitamin D deficiency Encounter for dietary consultation Class 2 severe obesity due to excess calories with serious comorbidity and body mass index (BMI) of38.0 to 38.9 in adult ([facility]) Diet and exercise reviewed with the patient High risk medication use He is on U-500 insulin MG SWAB Follow up in about 4 months (around 05/06/2024). documented in this encounterColumbia Regional [id number] History of Present illness Narrative* Lexis Keen, BRODIE-[employer] PILOT - 12/15/2023 1:00 PM EDT Images from the original note were not included. Steven Walden is a 63 y.o. male presents for Medication Management. HPI: Patient is here for medication follow up. Patient has improved since last appt. Mood is reported as depressed and rates 5(10worst). Has not been motivated. Movements are improved. states he is walking better at home. Anxiety is 4(10worst). Patient feels this is good. Sleeping too much once asleep. AT times has slept excessively at least two. Showering two times a week. Medication compliant. Taking seroquel not as prn-automatically. Reported side effects -excessive sedation. Denies abuse of substances. Medical problems since last visit. On Midrodine. He does not leave the house due to working extra hours at [employer]. Psychosocial stressors include financial, difficulty going out. SUBJECTIVE: PAST MEDICAL HISTORY: Past Medical History: Diagnosis Date Adjustment disorder with depressed mood (CMS/HCC) 08/10/2022 Anxiety Atrophy of right kidney 05/15/2018 Cholecystitis COVID 03/31/2022 CPAP (continuous positive airway pressure) dependence Depression (CMS/HCC) Diabetes mellitus type 2, controlled, without complications (CMS/HCC) Diverticulosis Finger fracture, right 12/29/2021 5th digit fracture Gout H/O CT scan of abdomen 07/15/2022 Bilateral non obstructing renal calculi.Left double Jejunum ureter stennt is no longer present at the left and urethra stone is no longer visualize. History of being hospitalized 07/19/2022 [facility] dalysis History of being hospitalized 05/27/2022 Acute Renal Failure History of being hospitalized 04/2018 Cellulitis and sepsis @ [facility] History of being hospitalized 06/[address] [facility] x7 [address] [facility] History of psychiatric [place] [facility] [place] of psychiatric hospitalization May 2023 [facility] 1 week Hx of complete electrocardiogram 08/11/2016 echo EF 70% LV wall thickness is mildy increased. No Regional wall Motion abnormality Hx of CT scan of abdomen 02/01/2017 Non-obstructing right Nephrolithiasis and right Renal atrophy Hx of CT scan of head 06/26/2022 No acute intrcraial abnormality Hx of electrocardiogram 06/09/2021 Normal Ventricular LVEF is 65%-70%.No significant valvular dysfunction Normal right sided pressures, mildly diated ascending aorts. No pericardial effusion. Hypertension (CMS/HCC) Kidney failure Kidney stones LVH (left ventricular hypertrophy) CONCLUSION: 1. Mild concentric left ventricular hypertrophy with normal ventricular systolic function. LVEF is 55 to 60%. 2. Normal right ventricular size and systolic function. 3. No significant valvular dysfunction. 4. Mildly dilated ascending aorta and aortic root. 5. Unable to assess right-sided pressures due to lack of measurable tricuspid regurgitation. Major depressive disorder, recurrent, moderate (HCC) (CMS/HCC) 06/07/2022 Nephrolithiasis Panic attack ([facility]) Renal atrophy Sleep apnea in adult 09/08/2022 stones ALLERGIES: No Known Allergies SURGICAL HISTORY: Past Surgical History: Procedure Laterality Date CARDIAC CATHETERIZATION 08/2016 CHOLECYSTECTOMY 2010 COLONOSCOPY 06/2018 ESOPHAGOGASTRODUODENOSCOPY 06/2018 EYE EXAM 2013 EYE EXAM 2012 FINGER FRACTURE SURGERY Right 5thdigit; pins and plates at [facility] [place] CYSTOSCOPY,INSERT URETHRAL STENT 05/2022 TUNNEL DIALYSIS CATHETER EXCHANGE 06/28/2022 WISDOM TOOTH EXTRACTION 1979 FAMILY HISTORY: Family History Problem Relation Name Age of Onset Heart disease Mother Depression Father Obesity Sister Diabetes Sister SOCIAL HISTORY: Social History Tobacco Use Smoking status: Never Smokeless tobacco: Never Vaping Use Vaping status: Never Used Substance Use Topics Alcohol use: Not Currently Comment: no caffiene; Drug use: Never Depression: At risk (12/15/2023) PHQ-2 PHQ-2 Score: 5 REVIEW OF SYMPTOMS - MENTAL STATUS EXAM Appearance Appearance: Casual dress, normal grooming and hygiene Attitude Attitude: Cooperative, conversant, engaged, and with good eye contact. Behavior Cooperative, conversant, engaged, and with good eye contact. Speech Normal, clear, regular rate, rhythm and volume Affect Flat Mood Depressed and Anxious Thought Process -thought blocking Thought Content No Suicidal Ideation and No Homicidal ideation Perception No perceptual abnormalities noted Orientation Appropriate to age, Person, Place, and Time Memory/Concentration Short term intact and group home intact Insight/Judgement Fair OBJECTIVE: Visit Vitals BP 118/78 (BP Location: Left arm) Pulse 97 Wt 307 lb BMI 38.37 kg/m Smoking Status Never BSA 2.71 m No results found for: TSH Lab Results Component Value Date GLU 165 (H) 09/02/2023 CALCIUM 9.0 09/02/2023 NA 139 09/02/2023 K 3.8 09/02/2023 CO2 18.8 (L) 09/02/2023 BUN 60.0 (H) 09/02/2023 CREATININE 2.04 (H) 09/02/2023 Lab Results Component Value Date WBC 9.4 07/14/2022 No results found for: CHOL No results found for: HDL No results found for: LDLCALC No results found for: TRIG ASSESSMENT AND PLAN: Assessment/Plan Assess/Plan SmartLinks: Major Depression, recurrent severe without psychotic features BRITTANY R/O dysthymia Psych Medication List Decrease seroquel 100mg at night Seroquel 25mg twice a day prn anxiety Zoloft 150mg po daily (Ingrezza 60mg po every day) -ordered Dr Low Continue counseling. (Had disability hearing. Waiting results) Patient was seen Face to Face, Reviewed chart documents and documentation, Visit time : 45min F/U 8 weeks * Dolores Coats - 12/15/2023 1:00 PM EDT Patient stopped taking vistaril 50mg a couple months ago. Patient feels as though it was ineffective. Patient feels as though he is sleeping to much with the Seroquel dose increase. Patient is havingissues falling asleep however when he is asleep he feels as though he sleeps to much. Patient came in to the office stating today he feels very irritable. Patients said that he woke up very weepy and he stated to her that he didn't know why he felt this way. Patient came in today well kept and speaking very well. Patients said he was able to shower and shave yesterday. documented in this encounterColumbia Regional [id number] NotePatient here for 1 year follow up orthostatic hypotension, hypertension, and syncope. He's also here to discuss starting a psych medication called Ingrezza. He is no longer on dialysis. Denies chest pain, palpitations, and recurrent syncope. Gets SOB with anxiety and activity. Review of Systems Cardiovascular: Positive for dyspnea on exertion. Respiratory: Positive for snoring. Psychiatric/Behavioral: The patient is nervous/anxious. All other systems reviewed and are negative.[facility] 07-19-2023 NoteCardiovascular Medicine [facility] SUBJECTIVE No chief complaint on file. Steven Waldne is a 63 y.o. male here for follow-up. HPI PMHx: LAD myocardial bridging by cath in 2017, hypertension, CKD on dialysis. SHADE wears CPAP, PAD, leg cellulitis treated by vascular surgery 07/16/2023 No longer on dialysis. He follows with nephrology, Dr. Ruiz from [facility]. He is having issues with debilitating anxiety. [...] ago and is following with nephrology in [place]. He has since developed more pronounced lightheadedness especially following dialysis. He had a syncopal event about a month ago and was hospitalized at [facility] where he had a normal carotid duplex. He has continued to experience postural lightheadedness without recurrent syncope. He denies chest pain, palpitations, or dyspnea on exertion. Patient Active Problem List Diagnosis Finger injury, right, initial encounter Acute kidney injury superimposed on CKD ([facility]) Adjustment disorder with depressed mood DAISY (acute kidney injury) ([facility]) Anxiety Atrophy of right kidney Bandemia Chest pain Chronic gouty arthritis Constipation Urinary tract obstruction by kidney stone Tremor Syncope Stage 3 chronic kidney disease ([facility]) Pyelonephritis of left kidney Pure hyperglyceridemia Primary gout Polyneuropathy due to type 2 diabetes mellitus ([facility]) Primary hypertension Orthostatic hypotension Obstructive sleep apnea syndrome Obesity Mononeuropathy of lower extremity Moderate major depression, single episode ([facility]) Migraine without aura, not refractory Metabolic acidosis Major depressive disorder, recurrent, moderate ([facility]) Major depression [facility] current use of insulin ([facility]) Left ureteral stone Hyponatremia Hyperlipidemia History of hydronephrosis History of anemia of chronic disease BRITTANY (generalized anxiety disorder) ESRD (end stage renal disease) ([facility]) Emphysematous cystitis Edema Dyspnea Dizziness Duodenal ulcer Disorder of nervous system due to type 2 diabetes mellitus ([facility]/H[facility]) Diabetic neuropathic arthropathy ([facility]) Diabetes mellitus type 2 in obese Diabetes mellitus (CMS/HCC) Dependent on hemodialysis ([facility]) Debility Coronary-myocardial bridge Lymphedema Diabetes mellitus due to underlying condition, uncontrolled, with hyperglycemia ([facility]) Class 3 severe obesity due to excess calories with body mass index (BMI) of 40.0 to 44.9 in adult ([facility]) Peripheral vascular disease ([facility]) Acute cystitis without hematuria Acute respiratory alkalosis Benign prostatic hyperplasia Confusion Diabetic renal disease ([facility]) Hyperventilation Insomnia Microalbuminuric diabetic nephropathy ([facility]) Migraine headache Nephrosclerosis Panic attack Poorly controlled diabetes mellitus ([facility]) Screening PSA (prostate specific antigen) UTI (urinary tract infection) Past Medical History: Diagnosis Date Asthma Depression Diabetic acidosis, type II ([facility]) Kidney disease Neuropathy Sleep apnea Family History [...] if SBP seated 1 (more content not included)...[facility]02-06-2024 History of Present illness Narrative* Lexis Keen, REVERBERATORY FURNACE SUPERVISOR-CO PILOT - 05/17/2023 4:00 PM EST HPI Patient is here with his for [...] completed. Sched[place] counselor [place] [facility] - he was unable to talk. No [...] for movements as when consulted with PCP - determined med would be contraindicated with patient who [...] at hs -target sleep To attend counseling- [facility]-has not been able to meet with phone. [...] with patient and ./documentation/review of record= 60min * Adrianne Stout LPN - 05/17/2023 4:00 PM EST Since increase on Primidone to 300mg daily from Dr. Low he has worsened with movements in the mouth, vocalization has changed, memory, gait, and making noises. Santo reports he has fallen 2 times, denies injuries.. Taking Klonopin nightly. Reports hand tremors have improved but still having some movements. Breathing has a slowed down. This current state is pretty much all day. documented in this encounterColumbia Regional [id number] Hospital Discharge instructions Additional Instructions As we [...] looking at your CAT scan reports from [employer]. This seems to be unchanged from the past. The left side shows no stones. [facility] Work Phone: [phone]) 577-786809-12-2023 Evaluation note* Encounter Date Diagnosis Assessment Notes Treatment Notes Treatment Clinical Notes Dec, CKD (chronic kidney disease), stage IV (ICD-10 - N18.4) Patient has CKD likely from right atrophic kidney addition to possibly diabetes and obstructive nephropathy.Last creatinine is 2.6 with GFR 25 mm/minI [...] at 7.0. Will start folic acid supplement [employer] Other 05-31-2023 History of Present illness Narrative* Jessenia Lawrence RN - 09/08/2022 11:51 AM EDT Received to recovery per cart. Vital signs stable. No drainage noted to dressing. Discharge instructions reviewed with patient, voices understanding. Padded tegaderms sent with patient, directions given on how and when to change dressing. Dressed for home. Ambulates off department unaided, all belongings sent with patient. documented in this encounterBON DOCTOR'S HOSPITAL MONTCLAIR MEDICAL CENTERHello! Messenger Phone: [phone] Hospital Discharge instructions* Discharge Instructions* Jessenia Lawrence [...] or chest pain. documented in this encounterBON Power Liens Phone: 1(474) 500-686103-30-2023 History of Present illness Narrative* Ernestina Steve LPN - 07/08/2022 1:01 PM EDT Patient discharged from facility. Rn Pool reviewed discharge orders with patient and family member. All questions and concern addressed. Patient left with medication from pharmacy, patient to sampler pickup walker. All belongings packed with patient. Patient [...] 100mg Omeprazole 40mg Lantus Solostar 100unit/ml Pen Morrill [id number] Additional Documentation: Delivered Medication to Patients Room * Ernestina Steve LPN - 07/08/2022 7:06 AM EDT Images from the original note were not included. ACUTE INPATIENT REHABILITATION DISCHARGE [facility] Patient Name: Steven Walden Patient discharged in [...] goal/plan/treatment preferences. Belongings including Glasses, Tshirt,Pants, Cellphone, Casino Floor Supervisor, sent with patient/responsible republican. Home medications [...] Dias OT - 07/07/2022 3:41 PM EDT [facility] Acute Rehabilitation Occupational Therapy Daily Treatment Note Date: 07/07/22 Patient Name: Steven Walden Room: 2632/2632-01 Account: [id number] : 1960 (62 y.o.) Gender: male Referring [...] Skilled Clinical Factors: standing sinkside to cleanse sada area/buttocks, no loss of balance, unilateral support [...] on L from 44 to 36. improved screed operator strength on R from 44 to 67 [...] and mobility/met Short Term Goal 7: - Link Knitting Machine Operator Goals Time Frame for Link Knitting Machine Operator Goals : By discharge Intermediate Goal 1: Pt will perform BADLs mod I, using appropriate adaptive techniques/equipment, andGood safety/met Link Knitting Machine Operator Goal 2: Pt will perform functional transfers/mobility, using least restrictive device, mod I and Good safety/met Intermediate Goal 3: Pt will tolerate standing for 10+ minutes, participating in dynamic standing and reaching as tolerated, during self care/functional activity of choice/met Intermediate Goal 4: Pt will V/D use of energy conservation/work simplification techniques to increaseIND during daily routine/met Link Knitting Machine Operator Goal 5: Pt will V/D at least three fall prevention/home safety modifications that are applicable to his daily routine and home environment/met Link Knitting Machine Operator Goal 6: Pt will improve opening small containers during self-care tasks as evidenced by 5seconds improvement on 9 hole peg test and 5# improvement of screed operator strength/met pt improved RUE coordination from 43 to 31 and on L from 44 to 36. improved screed operator strength on R from 44 to 67 and on L from 47 to 69. Intermediate Goal 7: Pt will perform light housekeeping/simple meal preparation with supervision, using adaptive techniques as needed, and Good safety/ met and surpassed- mod indep. Plan Occupational Therapy Plan Times Per Week: 900 minutes between OT/PT/IT ASSOCIATE Current Treatment Recommendations: Strengthening, Balance training, ROM, [...] Anthropometric Measures: Height: 6' 5 (195.6 cm) [place] Body Weight (IBW): 208 lbs (95 kg) [...] Used for Energy Requirements: Admission Energy (kcal/day): 9585-0734 based on Morgan-St. Jeor with 1-1.1 factor Weight Used for Protein Requirements: [place] Protein (g/day): 124-133 basee on 1.3-1.4 gm [...] guard assistance Toileting Skilled Clinical Factors: Per PROFESSIONAL SHOPPER report- pt able to manage clothing, CGA [...] Contact guard assistance Toilet Transfers Comments: Per PROFESSIONAL SHOPPER report Speech Therapy Current Medications: Current Facility-Administered [...] 3B, previous follow-up with nephrology in the [facility] and had not seen his resistance welder in the last 6 years, with unknown baseline creatinine, chronic lower extremity edema, morbid obesity (BMI 41.5), essential hypertension, remote history of nephrolithiasis. He was recently discharged from [facility] 06/30/2022 after initially presenting on 06/20/2022 [...] Prognosis is guarded. Aleena Luis MD Attending Mop Worker * Alejandro Rios MD - 07/06/2022 4:06 [...] 3B, previous follow-up with nephrology in the [facility] and had not seen his resistance welder in the last 6 years, withunknown baseline creatinine, chronic lower extremity edema, morbid obesity (BMI 41.5), essential hypertension, remote history of nephrolithiasis. He was recently discharged from [facility] 06/30/2022 after initially presenting on 06/20/2022 [...] DILATION performed by Kevin Myles MD at [facility] OR CYSTOSCOPY Left 06/29/2022 CYSTOSCOPY, URETEROSCOPY, LEFT STENT REMOVAL, STONE BASKETING (Left) CYSTOSTOMY W/ STENT INSERTION Left 06/29/2022 Stent exchange HAND SURGERY Right 12/2021 IR TUNNELED CATHETER PLACEMENT GREATER THAN 5 YEARS 06/28/2022 IR TUNNELED CATHETER PLACEMENT GREATER THAN 5 YEARS 06/28/2022 Gillian Batista MD [facility] SPECIAL PROCEDURES URETER SURGERY Left 06/29/2022 CYSTOSCOPY, URETEROSCOPY, LEFT STENT REMOVAL, STONE BASKETING performed by Kevin Myles MD at [facility] OR Current Medications: heparin (porcine) injection [...] Heparin for DVT prophylaxis. Alejandro Rios MD Mop Worker * Ada Vizcarra OT - 07/06/2022 3:35 PM EDT Occupational Therapy [facility] Acute Rehabilitation Occupational Therapy Daily Treatment Note Date: 07/06/22 Patient Name: Steven Walden Room: 2632/2632-01 Account: [id number] : 1960 (62 y.o.) Gender: male Referring [...] Skilled Clinical Factors: standing sinkside to cleanse sada area/buttocks, no loss of balance, unilateral support [...] strength/endurance needed for ADLs/IADLs. Resistive Exercises: AM: Rn Pool provided pt with handout/HEP on hand strengthening [...] devices: (left pt in therapy gym with PROCESS CONSULTANT Joelle) Restraints Initially in place: No Goals [...] and mobility Short Term Goal 7: - Intermediate Goals Time Frame for Intermediate Goals : By discharge Link Knitting Machine Operator Goal 1: Pt will perform BADLs mod I, using appropriate adaptive techniques/equipment, andGood safety Intermediate Goal 2: Pt will perform functional transfers/mobility, using least restrictive device, mod I and Good safety Link Knitting Machine Operator Goal 3: Pt will tolerate standing for 10+ minutes, participating in dynamic standing and reaching as tolerated, during self care/functional activity of choice Intermediate Goal 4: Pt will V/D use of energy conservation/work simplification techniques to increaseIND during daily routine Link Knitting Machine Operator Goal 5: Pt will V/D at least three fall prevention/home safety modifications that are applicable to his daily routine and home environment Link Knitting Machine Operator Goal 6: Pt will improve opening small containers during self-care tasks as evidenced by 5seconds improvement on 9 hole peg test and 5# improvement of screed operator strength Intermediate Goal 7: Pt will perform light housekeeping/simple meal preparation with supervision, using adaptive techniques as needed, and Good safety Plan Occupational Therapy Plan Times Per Week: 900 minutes between OT/PT/IT ASSOCIATE Current Treatment Recommendations: Strengthening, Balance training, ROM, [...] guard assistance Toileting Skilled Clinical Factors: Per PROFESSIONAL SHOPPER report- pt able to manage clothing, CGA [...] Contact guard assistance Toilet Transfers Comments: Per PROFESSIONAL SHOPPER report Speech Therapy Current Medications: Current Facility-Administered [...] gait, upper body weakness, and inability to sampler pickup an ambulation device; and he can ambulate [...] 3B, previous follow-up with nephrology in the [facility] and had not seen his resistance welder in the last 6 years, withunknown baseline creatinine, chronic lower extremity edema, morbid obesity (BMI 41.5), essential hypertension, remote history of nephrolithiasis. He was recently discharged from [facility] 06/30/2022 after initially presenting on 06/20/2022 [...] DILATION performed by Kevin Myles MD at [facility] OR CYSTOSCOPY Left 06/29/2022 CYSTOSCOPY, URETEROSCOPY, LEFT STENT REMOVAL, STONE BASKETING (Left) CYSTOSTOMY W/ STENT INSERTION Left 06/29/2022 Stent exchange HAND SURGERY Right 12/2021 IR TUNNELED CATHETER PLACEMENT GREATER THAN 5 YEARS 06/28/2022 IR TUNNELED CATHETER PLACEMENT GREATER THAN 5 YEARS 06/28/2022 Gillian Batista MD [facility] SPECIAL PROCEDURES URETER SURGERY Left 06/29/2022 CYSTOSCOPY, URETEROSCOPY, LEFT STENT REMOVAL, STONE BASKETING performed by Kevin Myles MD at [facility] OR Current Medications: fluticasone (FLONASE) 50 [...] Heparin for DVT prophylaxis. Alejandro Rios MD Mop Worker * Janet Emmanuel, PROCESS CONSULTANT - 07/05/2022 4:04 PM EDT Physical Therapy Facility/Department: [facility]UTE [facility] Rehabilitation Physical Therapy Daily Treatment [...] cefepime with dialysis until 07/02/22. Admitted to [facility] 06/30/22. Family / Caregiver Present: No Referring [...] of the rollator fitting throughout his house. Rn Pool edu/encouraged his to ask his family to [...] nustep for increased endurance and speed, BUE/LE Link Knitting Machine Operator Goals Time Frame for Link Knitting Machine Operator Goals : by D/C Intermediate Goal 1: Pt to demo IND transfers from varied surface heights. Link Knitting Machine Operator Goal 2: Pt to amb 200' with least restrictive device on varied surfaces, MOD I Link Knitting Machine Operator Goal 3: Pt to ascend/descend at least 8 stairs per home entry, SBA. Link Knitting Machine Operator Goal 4: Pt to score at least a 24 on Tinetti to improve standing balance to GOOD and reduce risk of falls for safe D/C. Intermediate Goal 5: pt to improve BLE strength by 1/2 MMG. Additional Goals?: Yes buttermaker goal 6: Pt to complete 2MWT wtih distance of at least 175' with device, MOD I. [facility] goal 7: Pt to improve 5xSTS to [...] Out 1102 1400 Minutes 53 25 Janet mEmanuel PTA, 07/05/22 at 4:04 PM * SANCHEZ Ramey - 07/05/2022 3:45 PM EDT [facility] Acute Rehabilitation Occupational Therapy Daily Treatment Note Date: 07/05/22 Patient Name: Steven Walden Room: 2632/2632-01 Account: [id number] : 1960 (62 y.o.) Gender: male Referring [...] home environment to engage in ADLs safely Intermediate Goals Time Frame for Intermediate Goals : By discharge Link Knitting Machine Operator Goal 1: Pt will perform BADLs mod I, using appropriate adaptive techniques/equipment, andGood safety Intermediate Goal 2: Pt will perform functional transfers/mobility, using least restrictive device, mod I and Good safety Intermediate Goal 3: Pt will tolerate standing for 10+ minutes, participating in dynamic standing and reaching as tolerated, during self care/functional activity of choice Link Knitting Machine Operator Goal 4: Pt will V/D use of energy conservation/work simplification techniques to increaseIND during daily routine Intermediate Goal 5: Pt will V/D at least three fall prevention/home safety modifications that are applicable to his daily routine and home environment Intermediate Goal 6: Pt will improve opening small containers during self-care tasks as evidenced by 5seconds improvement on 9 hole peg test and 5# improvement of screed operator strength Link Knitting Machine Operator Goal 7: Pt will perform light housekeeping/simple meal preparation with supervision, using adaptive techniques as needed, and Good safety Plan Occupational Therapy Plan Times Per Week: 900 minutes between OT/PT/IT ASSOCIATE Current Treatment Recommendations: Strengthening, Balance training, ROM, [...] guard assistance Toileting Skilled Clinical Factors: Per PROFESSIONAL SHOPPER report- pt able to manage clothing, CGA [...] Contact guard assistance Toilet Transfers Comments: Per PROFESSIONAL SHOPPER report Speech Therapy Current Medications: Current Facility-Administered [...] - 07/05/2022 10:25 AM EDT Occupational Therapy [facility] Acute Rehabilitation Occupational Therapy Daily Treatment Note Date: 07/05/22 Patient Name: Steven Walden Room: 2632/2632-01 Account: [id number] : 1960 (62 y.o.) Gender: male Referring [...] Skilled Clinical Factors: standing sinkside to cleanse sada area/buttocks Upper Extremity Dressing Assistance Level: Set-up [...] break after. Activity done to promote functional screed operator strength in B hands needed for increased [...] of devices: (left pt in gym with PROCESS CONSULTANT Sofiya) Goals Patient Goals Patient goals : [...] home environment to engage in ADLs safely Intermediate Goals Time Frame for Link Knitting Machine Operator Goals : By discharge Intermediate Goal 1: Pt will perform BADLs mod I, using appropriate adaptive techniques/equipment, andGood safety Link Knitting Machine Operator Goal 2: Pt will perform functional transfers/mobility, using least restrictive device, mod I and Good safety Intermediate Goal 3: Pt will tolerate standing for 10+ minutes, participating in dynamic standing and reaching as tolerated, during self care/functional activity of choice Intermediate Goal 4: Pt will V/D use of energy conservation/work simplification techniques to increaseIND during daily routine Intermediate Goal 5: Pt will V/D at least three fall prevention/home safety modifications that are applicable to his daily routine and home environment Link Knitting Machine Operator Goal 6: Pt will improve opening small containers during self-care tasks as evidenced by 5seconds improvement on 9 hole peg test and 5# improvement of screed operator strength Intermediate Goal 7: Pt will perform light housekeeping/simple meal preparation with supervision, using adaptive techniques as needed, and Good safety Plan Occupational Therapy Plan Times Per Week: 900 minutes between OT/PT/IT ASSOCIATE Current Treatment Recommendations: Strengthening, Balance training, ROM, [...] - 07/04/2022 3:33 PM EDT Occupational Therapy [facility] Acute Rehabilitation Occupational Therapy Daily Treatment Note Date: 07/04/22 Patient Name: Steven Walden Room: 2632/2632-01 Account: [id number] : 1960 (62 y.o.) Gender: male Referring [...] Factors: CGA-SBA while standing sinkside to cleanse sada area/buttocks Upper Extremity Dressing Assistance Level: Set-up [...] requests to play game of checkers with filing writer, and standsat table top surface with [...] home environment to engage in ADLs safely Intermediate Goals Time Frame for Link Knitting Machine Operator Goals : By discharge Intermediate Goal 1: Pt will perform BADLs mod I, using appropriate adaptive techniques/equipment, andGood safety Intermediate Goal 2: Pt will perform functional transfers/mobility, using least restrictive device, mod I and Good safety Intermediate Goal 3: Pt will tolerate standing for 10+ minutes, participating in dynamic standing and reaching as tolerated, during self care/functional activity of choice Intermediate Goal 4: Pt will V/D use of energy conservation/work simplification techniques to increaseIND during daily routine Intermediate Goal 5: Pt will V/D at least three fall prevention/home safety modifications that are applicable to his daily routine and home environment Intermediate Goal 6: Pt will improve opening small containers during self-care tasks as evidenced by 5seconds improvement on 9 hole peg test and 5# improvement of screed operator strength Link Knitting Machine Operator Goal 7: Pt will perform light housekeeping/simple meal preparation with supervision, using adaptive techniques as needed, and Good safety Plan Occupational Therapy Plan Times Per Week: 900 minutes between OT/PT/IT ASSOCIATE Current Treatment Recommendations: Strengthening, Balance training, ROM, [...] guard assistance Toileting Skilled Clinical Factors: Per PROFESSIONAL SHOPPER report- pt able to manage clothing, CGA [...] Contact guard assistance Toilet Transfers Comments: Per PROFESSIONAL SHOPPER report Speech Therapy Current Medications: Current Facility-Administered [...] if orders NOT met, was physician notified:rogelio ACES flowsheet faxed to patient unit/ placed [...] 07/03/2022 4:00 PM EDT Physical Therapy Facility/Department: [facility] Rehabilitation Physical Therapy Daily Treatment [...] cefepime with dialysis until 07/02/22. Admitted to [facility] 06/30/22. Family / Caregiver Present: No Referring [...] nustep for increased endurance and speed, BUE/LE Link Knitting Machine Operator Goals Time Frame for Link Knitting Machine Operator Goals : by D/C Link Knitting Machine Operator Goal 1: Pt to demo IND transfers from varied surface heights. Link Knitting Machine Operator Goal 2: Pt to amb 200' with least restrictive device on varied surfaces, MOD I Intermediate Goal 3: Pt to ascend/descend at least 8 stairs per home entry, SBA. Intermediate Goal 4: Pt to score at least a 24 on Tinetti to improve standing balance to GOOD and reduce risk of falls for safe D/C. Intermediate Goal 5: pt to improve BLE strength by 1/2 MMG. Additional Goals?: Yes buttermaker goal 6: Pt to complete 2MWT wtih distance of at least 175' with device, MOD I. buttermaker goal 7: Pt to improve 5xSTS to [...] 1100 1404 Minutes 53 22 Janet Emmanuel, PROCESS CONSULTANT, 07/03/22 at 4:00 PM * Ada Vizcarra, OT - 07/03/2022 3:34 PM EDT Occupational Therapy [facility] Acute Rehabilitation Occupational Therapy Daily Treatment Note Date: 07/03/22 Patient Name: Steven Walden Room: 2632/2632-01 Account: [id number] : 1960 (62 y.o.) Gender: male Referring Practitioner: Sachin Mkceon MD Diagnosis: Debility Additional Pertinent Hx: 62-year-old [...] of devices: (left pt in gym with PROCESS CONSULTANT Sofiya present) Restraints Initially in place: No [...] home environment to engage in ADLs safely Intermediate Goals Time Frame for Link Knitting Machine Operator Goals : By discharge Intermediate Goal 1: Pt will perform BADLs mod I, using appropriate adaptive techniques/equipment, andGood safety Link Knitting Machine Operator Goal 2: Pt will perform functional transfers/mobility, using least restrictive device, mod I and Good safety Intermediate Goal 3: Pt will tolerate standing for 10+ minutes, participating in dynamic standing and reaching as tolerated, during self care/functional activity of choice Link Knitting Machine Operator Goal 4: Pt will V/D use of energy conservation/work simplification techniques to increaseIND during daily routine Intermediate Goal 5: Pt will V/D at least three fall prevention/home safety modifications that are applicable to his daily routine and home environment Link Knitting Machine Operator Goal 6: Pt will improve opening small containers during self-care tasks as evidenced by 5seconds improvement on 9 hole peg test and 5# improvement of screed operator strength Intermediate Goal 7: Pt will perform light housekeeping/simple meal preparation with supervision, using adaptive techniques as needed, and Good safety Plan Occupational Therapy Plan Times Per Week: 900 minutes between OT/PT/IT ASSOCIATE Current Treatment Recommendations: Strengthening, Balance training, ROM, [...] Jacki Davila - 07/03/2022 1:08 PM EDT Rn Pool responded to consult for spiritual care. Patient said he was in a much better frame of mind and processing his condition and current need for dialysis. He is hopeful that it will not be a intermediate need. Therapy, while intense and tiring, is going well. When asked, patient noted he is not very cheondoism and doesn't find prayer helpful but he [...] illness injury and it s impact;Discussed belief system/cheondoism practices/philippe;Explored/Affirmed feelings, thoughts, concerns;Sustaining Presence/Ministry ofpresence Outcome Engaged in conversation;Expressed feelings, needs, and concerns;Expressed Gratitude;Receptive * Shelely Huggins MD - 07/03/2022 10:42 AM EDT [...] guard assistance Toileting Skilled Clinical Factors: Per PROFESSIONAL SHOPPER report- pt able to manage clothing, CGA [...] Contact guard assistance Toilet Transfers Comments: Per PROFESSIONAL SHOPPER report Speech Therapy Current Medications: Current Facility-Administered [...] Jeanie Hunt - 07/02/2022 7:02 PM EDT Rn Pool received consult to see patient; patient attempting to rest and asked filing writer to come back tomorrow ; 07/02/22 1901 Encounter Summary Encounter Overview/Reason Spiritual/Emotional Needs Service Provided For: Patient Referral/Consult From: Nurse Last Encounter 07/02/22 Complexity of Encounter Low Spiritual/Emotional needs Type Spiritual Support Assessment/Intervention/Outcome Assessment Unable to assess Intervention Explored/Affirmed feelings, thoughts, concerns Outcome Expressed Gratitude;Engaged in conversation;Expressed feelings, needs, and concerns * Ada Vizcarra OT - 07/02/2022 2:51 PM EDT Occupational Therapy [facility] Acute Rehabilitation Occupational Therapy Daily Treatment Note Date: 07/02/22 Patient Name: Steven Walden Room: 2632/2632-01 Account: [id number] : 1960 (62 y.o.) Gender: male Referring [...] home environment to engage in ADLs safely Link Knitting Machine Operator Goals Time Frame for Intermediate Goals : By discharge Link Knitting Machine Operator Goal 1: Pt will perform BADLs mod I, using appropriate adaptive techniques/equipment, andGood safety Link Knitting Machine Operator Goal 2: Pt will perform functional transfers/mobility, using least restrictive device, mod I and Good safety Link Knitting Machine Operator Goal 3: Pt will tolerate standing for 10+ minutes, participating in dynamic standing and reaching as tolerated, during self care/functional activity of choice Link Knitting Machine Operator Goal 4: Pt will V/D use of energy conservation/work simplification techniques to increaseIND during daily routine Link Knitting Machine Operator Goal 5: Pt will V/D at least three fall prevention/home safety modifications that are applicable to his daily routine and home environment Link Knitting Machine Operator Goal 6: Pt will improve opening small containers during self-care tasks as evidenced by 5seconds improvement on 9 hole peg test and 5# improvement of screed operator strength Link Knitting Machine Operator Goal 7: Pt will perform light housekeeping/simple meal preparation with supervision, using adaptive techniques as needed, and Good safety Plan Occupational Therapy Plan Times Per Week: 900 minutes between OT/PT/IT ASSOCIATE Current Treatment Recommendations: Strengthening, Balance training, ROM, [...] Minutes 62 Minutes 30 Minutes * Janet Emmanuel PTA - 07/02/2022 2:09 PM EDT Physical Therapy Facility/Department: [facility] Rehabilitation Physical Therapy Daily Treatment [...] cefepime with dialysis until 07/02/22. [facility]. Family / Caregiver Present: No Referring [...] nustep for increased endurance and speed, BUE/LE Link Knitting Machine Operator Goals Time Frame for Intermediate Goals : by D/C Intermediate Goal 1: Pt to demo IND transfers from varied surface heights. Intermediate Goal 2: Pt to amb 200' with least restrictive device on varied surfaces, MOD I Intermediate Goal 3: Pt to ascend/descend at least 8 stairs per home entry, SBA. Link Knitting Machine Operator Goal 4: Pt to score at least a 24 on Tinetti to improve standing balance to GOOD and reduce risk of falls for safe D/C. Link Knitting Machine Operator Goal 5: pt to improve BLE strength by 1/2 MMG. Additional Goals?: Yes [facility] goal 6: Pt to complete 2MWT wtih distance of at least 175' with device, MOD I. buttermaker goal 7: Pt to improve 5xSTS to [...] time: 3 hours 28 minutes UltraFiltration Goal: 2656-2110 L as tolerated UltraFiltration Removed: 2000 ml [...] 07/01/2022 3:54 PM EDT Physical Therapy Facility/Department: [facility] Rehabilitation Physical Therapy Daily Treatment [...] cefepime with dialysis until 07/02/22. Admitted to [facility] 06/30/22. Family / Caregiver Present: No Referring [...] nustep for increased endurance and speed, BUE/LE Link Knitting Machine Operator Goals Time Frame for Link Knitting Machine Operator Goals : by D/C Link Knitting Machine Operator Goal 1: Pt to demo IND transfers from varied surface heights. Intermediate Goal 2: Pt to amb 200' with least restrictive device on varied surfaces, MOD I Link Knitting Machine Operator Goal 3: Pt to ascend/descend at least 8 stairs per home entry, SBA. Intermediate Goal 4: Pt to score at least a 24 on Tinetti to improve standing balance to GOOD and reduce risk of falls for safe D/C. Link Knitting Machine Operator Goal 5: pt to improve BLE strength by 1/2 MMG. Additional Goals?: Yes [facility] goal 6: Pt to complete 2MWT wtih distance of at least 175' with device, MOD I. [facility] goal 7: Pt to improve 5xSTS to [...] 07/01/2022 1:29 PM EDT Physical Therapy Facility/Department: [facility] Physical Therapy Initial Assessment Name: [...] cefepime with dialysis until 07/02/22. [facility]. 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 No therapy upon discharge from [facility]. Also has daughter who is [...] nustep for increased endurance and speed, BUE/LE Intermediate Goals Time Frame for Link Knitting Machine Operator Goals : by D/C Link Knitting Machine Operator Goal 1: Pt to demo IND transfers from varied surface heights. Link Knitting Machine Operator Goal 2: Pt to amb 200' with least restrictive device on varied surfaces, MOD I Intermediate Goal 3: Pt to ascend/descend at least 8 stairs per home entry, SBA. Link Knitting Machine Operator Goal 4: Pt to score at least a 24 on Tinetti to improve standing balance to GOOD and reduce risk of falls for safe D/C. Link Knitting Machine Operator Goal 5: pt to improve BLE strength by 1/2 MMG. Additional Goals?: Yes buttermaker goal 6: Pt to complete 2MWT wtih distance of at least 175' with device, MOD I. buttermaker goal 7: Pt to improve 5xSTS to [...] - 07/01/2022 1:17 PM EDT Occupational Therapy [facility] Acute Rehabilitation Occupational Therapy Evaluation Date: 07/01/22 Patient Name: Steven Walden Room: 2632/2632-01 Account: [id number] : 1960 (62 y.o.) Gender: male Referring [...] Okay for OT evaluation and treatment per PROFESSIONAL SHOPPER Vitor. 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 No therapy upon discharge from [facility]. Also has daughter who is [...] guard assistance Toileting Skilled Clinical Factors: Per PROFESSIONAL SHOPPER report- pt able to manage clothing, CGA [...] needed: Supervision or touching assistance Comment: Per PROFESSIONAL SHOPPER report CARE Score: 4 Discharge Goal: Independent [...] needed: Supervision or touching assistance Comment: Per PROFESSIONAL SHOPPER report CARE Score: 4 Discharge Goal: Independent UE Function LUE AROM (degrees) LUE AROM : WFL Tone RUE RUE Tone: Normotonic LUE Strength L Hand General: 4-/5 LUE Strength Comment: Overall 4-/5 Left Hand Strength - Wash Plant Operator (lbs) Handle Setting 3: 47# (50, 49, 42) (Impaired, Norm: 65-103#) RUE AROM (degrees) RUE AROM : WFL Right Hand AROM (degrees) Right Hand AROM: WFL Tone LUE LUE Tone: Normotonic RUE Strength R Hand General: 4-/5 RUE Strength Comment: Overall 4-/5 Right Hand Strength - Wash Plant Operator (lbs) Handle Setting 3: 44.33# (39, 45, [...] Contact guard assistance Toilet Transfers Comments: Per PROFESSIONAL SHOPPER report Functional mobility Functional Mobility Functional - [...] and independence with self care and mobility Intermediate Goals Time Frame for Link Knitting Machine Operator Goals : By discharge Intermediate Goal 1: Pt will perform BADLs mod I, using appropriate adaptive techniques/equipment, andGood safety Intermediate Goal 2: Pt will perform functional transfers/mobility, using least restrictive device, mod I and Good safety Link Knitting Machine Operator Goal 3: Pt will tolerate standing for 10+ minutes, participating in dynamic standing and reaching as tolerated, during self care/functional activity of choice Intermediate Goal 4: Pt will V/D use of energy conservation/work simplification techniques to increaseIND during daily routine Intermediate Goal 5: Pt will V/D at least three fall prevention/home safety modifications that are applicable to his daily routine and home environment Link Knitting Machine Operator Goal 6: Pt will improve opening small containers during self-care tasks as evidenced by 5seconds improvement on 9 hole peg test and 5# improvement of screed operator strength Intermediate Goal 7: Pt will perform light housekeeping/simple meal preparation with supervision, using adaptive techniques as needed, and Good safety Plan Occupational Therapy Plan Times Per Week: 900 minutes between OT/PT/IT ASSOCIATE Current Treatment Recommendations: Strengthening, Balance training, ROM, [...] were not included. ACUTE INPATIENT REHABILITATION ADMISSION [facility] Patient Name: Steven Walden Date of Admit: [...] following documents provided to patient/responsible republican: 1. [facility] Individualized Disclosure Statement 2. Data Collection Information Summary for Patients in Inpatient Rehabilitation Facilities 3. Privacy Act Statement - Health Care Records Care plan was created with patient/responsible republican input and goals were agreed upon. Please refer to the admission navigator for further information. documented [facility] [employer] Work Phone: 1(669) 722-336903-22-2023 Hospital Discharge instructions* Discharge Instructions* Tita Delgadillo RN - 06/30/2022 3:56 PM EDT Kevin Myles MD [address] [facility] [id number] Follow up in 6 week(s) for stone fu Darion Randle MD [address] [facility] [facility] [address] [facility] [address] Follow up Yo Batista MD [address] [facility] [id number] Follow up * Discharge Instr - SHAYNE* Tita Delgadillo RN - 07/07/2022 11:36 AM EDT Continuity of Care Form Patient Name: Steven Walden : 1960 Admit date: 06/30/2022 Discharge date: Code Status Order: Full Code Advance Directives: Admitting Physician: Sachin Mckeon MD PCP: Darion Randle MD Discharging Nurse: Discharging Hospital Unit/Room#: 2632/2632-01 Discharging Unit Phone Number: Emergency Contact: Extended Emergency Contact Information Primary Emergency Contact: Santo Walden Mobile Relation: Spouse Preferred language: Burmese Plastic Production Machine Setter needed? No Secondary Emergency Contact: Racheal Walden Mobile Relation: Child Preferred language: Burmese Plastic Production Machine Setter needed? No Past Surgical History: Past Surgical History: Procedure Laterality Date CHOLECYSTECTOMY 2010 CYSTOSCOPY Left 05/28/2022 CYSTOSCOPY, URETERAL STENT INSERTION, URETHRAL DILATION performed by Kevin Myles MD at [facility] OR CYSTOSCOPY Left 06/29/2022 CYSTOSCOPY, URETEROSCOPY, LEFT STENT REMOVAL, STONE BASKETING (Left) CYSTOSTOMY W/ STENT INSERTION Left 06/29/2022 Stent exchange HAND SURGERY Right 12/2021 IR TUNNELED CATHETER PLACEMENT GREATER THAN 5 YEARS 06/28/2022 IR TUNNELED CATHETER PLACEMENT GREATER THAN 5 YEARS 06/28/2022 Gillian Batista MD [facility] SPECIAL PROCEDURES URETER SURGERY Left 06/29/2022 CYSTOSCOPY, URETEROSCOPY, LEFT STENT REMOVAL, STONE BASKETING performed by Kevin Myles MD at [facility] OR Immunization History: Immunization History Administered Date(s) Administered COVID-19, J&J, (age 18y+), IM, 0.5 mL 09/04/2020 Active Problems: Patient Active Problem List Diagnosis Code DAISY (acute kidney injury) ([facility]) N17.9 Acute kidney injury superimposed on CKD ([facility]) N17.9, N18.9 Chronic kidney disease N18.9 Type 2 diabetes mellitus with stage 3a chronic kidney disease ([facility]) E11.22, N18.31 Hyperlipidemia E78.5 Primary hypertension I10 Urinary tract obstruction by kidney stone N20.0, N13.8 Hydronephrosis of left kidney N13.30 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 Left ureteral stone N20.1 Debility R53.81 BRITTANY (generalized anxiety disorder) F41.1 Major depressive disorder, recurrent, moderate (HCC) F33.1 Tremor R25.1 Bandemia D72.825 Pyelonephritis of [...] MENTAL STATUS:} IV Access: { SHAYNE IV ACCESS:538913270} Nursing Mobility/ADLs: Walking {CHP DME ADLs:434788151} Transfer {CHP DME ADLs:466247995} Bathing {CHP DME ADLs:046086733} Dressing {CHP DME ADLs:023408744} Toileting {CHP DME ADLs:679466092} Feeding {CHP DME ADLs:414708988} Television Presenter {CHP DME ADLs:043440374} Med Delivery { SHAYNE MED Delivery:159108383} Wound Care Documentation and Therapy: Elimination: Continence: Bowel: {YES / NO:} Bladder: {YES / NO:} Urinary Catheter: {Urinary Catheter:525326356} Colostomy/Ileostomy/Ileal Conduit: {YES / NO:} Date of Last BM: Intake/Output Summary (Last 24 hours) at 07/07/2022 1133 Last data filed at 07/06/2022 1800 Gross per 24 hour Intake 5860 ml Output 2500 ml Net 3360 ml I/O last 3 completed shifts: In: 6580 [P.O.:1080; I.V.:5000] Out: 2500 Safety Concerns: { SHAYNE Safety Concerns:988077285} Impairments/Disabilities: { SHAYNE Impairments/Disabilities:189472942} Nutrition Therapy: Current Nutrition Therapy: { SHAYNE Diet List:142988939} Routes of Feeding: {[facility] DME Other Feedings:704765770} Liquids: {[facility] liquid thickness:30092} Daily Fluid Restriction: {[facility] DME Yes amt example:307831200} Last Modified Barium Swallow with Video (Video Swallowing Test): {Done Not Done Date:} Treatments at the Time of Hospital Discharge: Respiratory Treatments: Oxygen Therapy: {Therapy; copd oxygen:15939} Ventilator: { CC Vent List:487261421} Rehab Therapies: {THERAPEUTIC INTERVENTION:9022556344} Weight Bearing Status/Restrictions: {[facility] Weight Bearin} Other Medical Equipment (for information only, NOT a DME order): {EQUIPMENT:092588503} Other Treatments: Patient's personal belongings (please select all that are sent with patient): {[facility] DME Belongings:397701925} RN SIGNATURE: {Esignature:738678417} CASE MANAGEMENT/SOCIAL WORK SECTION Inpatient Status Date: 06/30/2022 Readmission Risk Assessment Score: Readmission Risk Risk of Unplanned Readmission: 31 Discharging to Facility/ Agency Declined Home Health Care/ Will attend OP Therapy~ per patient Dialysis Facility (if applicable) [facility] [address] [place] [address] M W F treatment days. Patient needs to be at dialysis at 11 am on Tuesday07/09/22 Real Estate Financial Analyst/Litigation Secretary signature: PHYSICIAN SECTION Prognosis: {Prognosis:8650727340} Condition at Discharge: { Patient Condition:231847344} Rehab Potential (if transferring to Rehab): {Prognosis:8740852456} Recommended Labs or Other Treatments After Discharge: Physician Certification: I certify the above information and transfer of Steven Walden is necessary for the continuing treatment of the diagnosis listed and that he requires {Admit to Appropriate Level of Care:96432} for {GREATER/LESS:508498606} 30 days. Update Admission H&P: {CHP DME Changes in HandP:137422660} PHYSICIAN SIGNATURE: {Esignature:612023307} documented in this encounterBON [facility] [employer] Phone: 1(854) 713-760303-22-2023 History of Present illness Narrative* Betty Hess MD - 06/30/2022 1:24 PM EDT Physician Progress Note PATIENT: STEVEN WALDEN CSN #: [id number] : 1960 ADMIT DATE: 06/20/2022 1:58 AM [...] you, please contact me for any questions. Cody Alvarez RN, CDS cell- [phone] office hours - [id number] Options provided: -- sepsis due to pyeonephritis [...] and resolved was POA. Query created by: Cody Alvarez on 06/30/2022 12:43 PM Electronically signed [...] will be getting his outpatient dialysis at [facility]. HPI: 62-year-old male with a PMH significant of type II DM, diagnosed 15 years ago with vision compromise (no diagnosis of retinopathy), A1c has been fluctuating between 7 and 11 according to his family, CKD stage III, used to follow up at [facility] nephrology, has not seen resistance welder in the last 6 years, with unknown [...] Date/Time NITRU NEGATIVE 06/20/2022 08:30 AM COLORU [place] 06/20/2022 08:30 AM PHUR 5.5 06/20/2022 08:30 [...] will be getting his outpatient dialysis at [facility] upon discharge. Postop management per urology. Continue antibiotics as per GFR<15. Avoid nephrotoxin. Continue on renal diet. Okay to discharge from nephrology standpoint.. Please do not hesitate to call with questions. Yo Batista MD [facility] This note is created with the assistance of a speech-recognition program. While intending to generate a document that actually reflects the content of the visit, no guarantees can be provided that every mistake has been identified and corrected by editing. * Betty Hess MD - 06/30/2022 11:03 AM EDT Images from the original note were not included. [facility] Office: [phone] Chris Osman DO, Terrence Johns DO, Stefani Augustin DO, Jaspreet Mosley DO, Surekha Batista MD, Adrienne Means MD, Rosales Singh MD, Caitlyn Benz MD, Abdoul Camargo MD, Cathy Farooq MD, Chepe Cordova DO, Betty Hess MD, Deja Guevara DO, April Girard MD, Arvin Maya MD, Cody Osman DO, Shima Watson MD, Raphael Connor [...] SARA, Catie Cheema CNP, Chelsea Kulkarni CNP [facility] IN-PATIENT SERVICE [facility] Progress Note 06/30/2022 11:03 AM Name: Steven Walden Acct: [id number] Room: [address] [place] [address] IP Day: 10 Admit Date: 06/20/2022 1:58 AM [...] REMOVAL, STONE BASKETING Surgeon(s): Kevin Myles MD Assurance Analyst: * No surgical staff found * Anesthesia: [...] 01:49 PM PBEA 3 06/26/2022 01:49 PM [id number] 06/26/2022 01:49 PM FIO2 30.0 06/26/2022 01:49 PM Lab Results Component Value Date/Time SPECIAL RAC 10ML 06/20/2022 03:51 AM Lab Results Component Value Date/Time CULTURE 06/20/2022 08:28 AM NO SIGNIFICANT GROWTH Identified as : VIRIDANS STREPTOCOCCUS GROUP <[id number] CFU/ML Radiology: CT HEAD WO CONTRAST Result [...] POA * (Principal) DAISY (acute kidney injury) ([facility]) 06/20/2022 Yes Acute kidney injury superimposed on CKD ([facility]) 06/20/2022 Yes Chronic kidney disease 06/20/2022 Yes Type 2 diabetes mellitus with stage 3a chronic kidney disease ([facility]) 06/20/2022 Yes Hyperlipidemia 06/20/2022 Yes Primary hypertension 06/20/2022 Yes Left ureteral stone 06/20/2022 Yes BRITTANY (generalized anxiety disorder) 06/20/2022 Yes Major depressive disorder, recurrent, moderate ([facility]) 06/20/2022 Yes Bandemia 06/20/2022 Yes Pyelonephritis 06/29/2022 Yes 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 Yes Hyponatremia 06/21/2022 Yes Dependence on renal dialysis ([facility]) 06/29/2022 Yes Metabolic acidosis 06/29/2022 Yes Plan: [...] note were not included. Kevin Myles MD [facility] Urology Progress Note Subjective: S/p left ureteral [...] tech or 2 RNs Staff Names Jax Ariza and Kassandra Bowie [x] Identity of [...] from the original note were not included. [facility] Office: [phone] Chris Osman DO, Terrence Johns DO, Stefani Augustin DO, Jaspreet Mosley DO, Surekha Batista MD, Adrienne Means MD, Rosales Singh MD, Caitlyn Benz MD, Abdoul Camargo MD, Cathy Farooq MD, Chepe Cordova DO, Betty Hess MD, Deja Guevara DO, April Girard MD, Arvin Maya MD, Cody Osman DO, Shima Watson MD, Raphael Connor MD, Jerome Simon DO, Yoselyn Thakkar MD, Codi Self MD, Gilda Sousa MD, Sheyla Viveros MD, Vikki Adorno MD, Jarocho Real DO, Krishan Vogt MD, Radha William MD, Shaunna Freitas, KARINA, Prabha Hauser CNP, Shirlene Dacosta CNP, Favian Ji, KARINA, Yesenia Espino, TEJINDER, Ema Mason, LINEN GRADER, Calista Mendez, LINEN GRADER, Gunjan Ruiz, LINEN GRADER, Sharon Barry, LINEN GRADER, Sri Weiner, LINEN GRADER, Gillian Valles PA-C, Carleen Paiz, CO PILOT, Catie Cheema, LINEN GRADER, Chelsea Kulkarni, KARINA [facility] IN-PATIENT SERVICE [facility] Progress Note 06/29/2022 12:28 PM Name: Steven Walden Acct: [id number] Room: 0438/0438-01 Day: 9 Admit Date: 06/20/2022 1:58 AM [...] Major depressive disorder, Morbid obesity (HCC), Neuropathy, SAHDE (obstructive sleep apnea), and Peptic ulcer disease. [...] 01:49 PM PBEA 3 06/26/2022 01:49 PM [id number] 96 06/26/2022 01:49 PM FIO2 30.0 06/26/2022 01:49 PM Lab Results Component Value Date/Time SPECIAL RAC 10ML 06/20/2022 03:51 AM Lab Results Component Value Date/Time CULTURE 06/20/2022 08:28 AM NO SIGNIFICANT GROWTH Identified as : VIRIDANS STREPTOCOCCUS GROUP <[id number] CFU/ML Radiology: CT HEAD WO CONTRAST Result [...] POA * (Principal) DAISY (acute kidney injury) ([facility]) 06/20/2022 Yes Acute kidney injury superimposed on CKD ([facility]) 06/20/2022 Yes Chronic kidney disease 06/20/2022 Yes Type 2 diabetes mellitus with stage 3a chronic kidney disease ([facility]) 06/20/2022 Yes Hyperlipidemia 06/20/2022 Yes Primary hypertension 06/20/2022 Yes Left ureteral stone 06/20/2022 Yes BRITTANY (generalized anxiety disorder) 06/20/2022 Yes Major depressive disorder, recurrent, moderate ([facility]) 06/20/2022 Yes Bandemia 06/20/2022 Yes Pyelonephritis of [...] stage III, used to follow up at [facility] nephrology, has not seen resistance welder in the last 6 years, with unknown [...] (SYMBICORT) 80-4.5 MCG/ACT inhaler 2 puff, BID [JUN Hold] lamoTRIgine (LAMICTAL) tablet 200 mg, Daily [JUN Hold] mirtazapine (REMERON) tablet 30 mg, Nightly [JUN Hold] pantoprazole (PROTONIX) tablet 40 mg, QAM AC [JUN Hold] propranolol (INDERAL) tablet 20 mg, TID [JUN Hold] tamsulosin (FLOMAX) capsule 0.4 mg, Daily [JUN Hold] venlafaxine (EFFEXOR XR) extended release capsule 150 mg, Daily [JUN Hold] sodium chloride flush 0.9 % injection 5-40 mL, 2 times per day [JUN Hold] sodium chloride flush 0.9 % injection 5-40 mL, PRN [Jun] 0.9 % sodium chloride infusion, PRN [Jun] ondansetron (ZOFRAN-ODT) disintegrating tablet 4 mg, Q8H PRN Or [JUN Hold] ondansetron (ZOFRAN) injection 4 mg, Q6H PRN [JUN Hold] acetaminophen (TYLENOL) tablet 650 mg, Q6H PRN Or [JUN Hold] acetaminophen (TYLENOL) suppository 650 mg, Q6H PRN [JUN Hold] insulin lispro (HUMALOG) injection vial 0-8 Units, TID WC [JUN Hold] insulin lispro (HUMALOG) injection vial 0-4 Units, Nightly [JUN Hold] glucose chewable tablet 16 g, PRN [Jun] dextrose bolus 10% 125 mL, PRN Or [JUN Hold] dextrose bolus 10% 250 mL, PRN [JUN Hold] glucagon (rDNA) injection 1 mg, PRN [Jun] dextrose 10 % infusion, Continuous PRN [JUN Hold] lidocaine (XYLOCAINE) 2 % uro-jet, PRN [JUN [...] Date/Time NITRU NEGATIVE 06/20/2022 08:30 AM COLORU [place] 06/20/2022 08:30 AM PHUR 5.5 06/20/2022 08:30 [...] Continue on renal diet. BMP in AM. services clerk to help towards finding outpatient hemodialysis spot but might be getting discharged to [facility]. Will follow. Please do not hesitate to call with questions. Angel Frazier MD, MPH, PGY-2 Internal Medicine Resident [facility], [place], [place] Attending Physician Statement I have discussed the care of this patient, including pertinent history and exam findings, with the Resident/LINEN GRADER. I have reviewed and edited the [place] elements of all parts of the encounter with the Resident/LINEN GRADER. I agree with the assessment, plan and orders as documented by the Resident/LINEN GRADER. Yo Batista MD [facility] This note is created with the assistance [...] note were not included. Kevin Myles MD [facility] Urology Progress Note Subjective: S/p left ureteral [...] -1300 ml Recent Labs 06/27/22 0541 06/28/22 09 WBC 14.1* 13.5* HGB 11.9* 11.7* HCT [...] anxiety disorder) Major depressive disorder, recurrent, moderate ([facility]) Tremor Bandemia Pyelonephritis of left kidney Emphysematous cystitis Hyponatremia Plan: Maintain craballo catheter as needed for I/O monitoring Most [...] were not included. [facility] - Infectious diseases evaluation admission date 06/20/2022 reason for consultation: pyelonephritis Impression : Current: Left pyelonephritis Left ureteral stent for obstructing stone placed 2 weeks PROCESS CONSULTANT Emphysematous cystitis-strep low count bandemia Bilateral nonobstructive [...] procedure Ok for DC Infection Control Recommendations [place] Precautions Contact Isolation Antimicrobial Stewardship Recommendations Simplification [...] X2 NGTD 06/20 Urine culture 06/20 strep <51705 cfu/ml Imaging: CT abdomen and pelvis 06/20 [...] DILATION performed by Kevin Myles MD at [facility] OR HAND SURGERY Right 12/2021 Medications: [...] Eldon Mcallister Office: Perfect serve / office [phone] I have discussed the care of the patient, including pertinent history and exam findings, with the resident. I have seen and examined the patient and the [place] elements of all parts of the encounter have been performed by me. I agree with the assessment, plan and orders as documented by the resident. Allegra Scherer, Infectious Diseases * Toshiahattie Hammonds RD - 06/28/2022 1:40 PM EDT [...] 170-180 gm Weight Used for Protein Requirements: [place] Fluid (ml/day): Per MD Method Used for [...] soon to determine Toshia Hammonds RD Contact: [phone] * Lety Mcbride RN - 06/28/2022 10:00 [...] from the original note were not included. [facility] Office: [phone] Chris Osman DO, Terrence Johns DO, Stefani Augustin DO, Jaspreet Mosley DO, Surekha Batista MD, Adrienne Means MD, Rosales Singh MD, Caitlyn Benz MD, Abdoul Camargo MD, Cathy Farooq MD, Chepe Cordova DO, Betty Hess MD, Deja Guevara DO, April Girard MD, Arvin Maya MD, Cody Osman DO, Shima Watson MD, Raphael Connor [...] Weiner CNP, Gillian Valles PA-C, Carleen Paiz, CO PILOT, Catie Cheema, LINEN GRADER, Chelsea Kulkarni, LINEN GRADER [facility] IN-PATIENT SERVICE [facility] Progress Note 06/28/2022 9:14 AM Name: Steven Walden Acct: [id number] Room: [facility]0438[facility] Day: 8 Admit Date: 06/20/2022 1:58 AM [...] 01:49 PM PBEA 3 06/26/2022 01:49 PM [id number] 96 06/26/2022 01:49 PM FIO2 30.0 06/26/2022 01:49 PM Lab Results Component Value Date/Time SPECIAL RAC 10ML 06/20/2022 03:51 AM Lab Results Component Value Date/Time CULTURE 06/20/2022 08:28 AM NO SIGNIFICANT GROWTH Identified as : VIRIDANS STREPTOCOCCUS GROUP <[id number] CFU/ML Radiology: CT ABDOMEN PELVIS WO CONTRAST [...] POA * (Principal) DAISY (acute kidney injury) ([facility]) 06/20/2022 Yes Acute kidney injury superimposed on CKD ([facility]) 06/20/2022 Yes Chronic kidney disease 06/20/2022 Yes Type 2 diabetes mellitus with stage 3a chronic kidney disease ([facility]) 06/20/2022 Yes Hyperlipidemia 06/20/2022 Yes Primary hypertension 06/20/2022 Yes Left ureteral stone 06/20/2022 Yes BRITTANY (generalized anxiety disorder) 06/20/2022 Yes Major depressive disorder, recurrent, moderate ([facility]) 06/20/2022 Yes Bandemia 06/20/2022 Yes Pyelonephritis of [...] stage III, used to follow up at [facility] nephrology, has not seen resistance welder in the last 6 years, with unknown [...] Date/Time NITRU NEGATIVE 06/20/2022 08:30 AM COLORU [place] 06/20/2022 08:30 AM PHUR 5.5 06/20/2022 08:30 [...] Frazier MD, MPH, PGY-2 Internal Medicine Resident [facility], [place], [place] Attending Physician Statement I have discussed [...] MD Nephrology Attending Physician [facility] 06/28/2022 * Emiliano Leavitt MD - 06/28/2022 [...] -- -- -- -- 18 -- -- 03/20/23 0012 -- -- -- -- 15 -- [...] stage III, used to follow up at [facility] nephrology, has not seen resistance welder in the last 6 years, with unknown [...] 3.6* 3.7 CL 101 100 100 CO2 BUN 41* 31* 35* CREATININE 4.65* 3.79* [...] Date/Time NITRU NEGATIVE 06/20/2022 08:30 AM COLORU [place] 06/20/2022 08:30 AM PHUR 5.5 06/20/2022 08:30 [...] BAUTISTA APN 06/27/2022 2:30 PM [facility] Attending Physician Statement I have discussed the care of Steven Walden, including pertinent history and exam findings, with the LINEN GRADER. I have reviewed the [place] elements of all parts of the encounter with the LINEN GRADER. I agree with the assessment, plan and orders as documented. Ace Hanson MD MD, MRCP (), FACP 06/27/2022 3:45 PM [facility] * Carolina Jimmy, PROCESS CONSULTANT - 06/27/2022 10:43 AM EDT Physical Therapy Facility/Department: [address] ONC/MED SURG Physical Therapy Daily treatment [...] (ambulates with cane at home, CTA at [facility]) Patient Diagnosis(es): The primary encounter diagnosis [...] were not included. [facility] - Infectious diseases evaluation Progress Note admission date 06/20/2022 reason for consultation: pyelonephritis Impression : Left pyelonephritis Left ureteral stent for obstructing stone placed 2 weeks PROCESS CONSULTANT Emphysematous cystitis-strep low count bandemia Bilateral nonobstructive [...] with Dr Scherer for infection. Please call [phone] for appointment Infection Control Recommendations [place] Precautions Contact Isolation Antimicrobial Stewardship Recommendations Simplification [...] with Dr Scherer for infection. Please call [phone] for appointment Evaluated by Psychiatry for recurrent [...] DILATION performed by Kevin Myles MD at [facility] OR HAND SURGERY Right 12/2021 Medications: [...] Brooks MD Office: Perfect serve / office [phone] * Sheyla Viveros MD - 06/27/2022 7:58 AM EDT Images from the original note were not included. [facility] Office: [phone] Chris Osman DO, Terrence Johns DO, Stefani Augustin DO, Jaspreet Mosley DO, Surekha Batista MD, Adrienne Means MD, Rosales Singh MD, Caitlyn Benz MD, Abdoul Camargo MD, Cathy Farooq MD, Chepe CordovaDO, Betty Hess MD, Deja Guevara DO, April Girard MD, Arvin Maya MD, Cody Osman DO, Shima Watson MD, Raphael Connor MD, Jerome Simon, DO, Yoselyn Thakkar MD, Codi Self MD, Gilda Sousa MD, Sheyla Viveros MD, Vikki Adorno MD, Jarocho Real DO, Krishan Vogt MD, Radha William MD, Shaunna Freitas, KARINA, Prabha Hauser CNP, Shirlene Dacosta CNP, Favian Ji CNP, Yesenia Espino, TEJINDER, Ema Mason, LINEN GRADER, Calista Mendez, LINEN GRADER, Gunjan Ruiz, LINEN GRADER, Sharon Barry, LINEN GRADER, Sri Weiner, LINEN GRADER, Gillian Valles PA-C, Carleen Paiz, CO PILOT, Catie Cheema, LINEN GRADER, Chelsea Kulkarni, LINEN GRADER [facility] IN-PATIENT SERVICE [facility] Progress Note 06/27/2022 7:58 AM Name: Steven Walden Acct: [id number] Room: 0438/0438-01 Day: 7 Admit Date: 06/20/2022 [...] 01:49 PM PBEA 3 06/26/2022 01:49 PM [id number] 96 06/26/2022 01:49 PM FIO2 30.0 06/26/2022 01:49 PM Lab Results Component Value Date/Time SPECIAL RAC 10ML 06/20/2022 03:51 AM Lab Results Component Value Date/Time CULTURE 06/20/2022 08:28 AM NO SIGNIFICANT GROWTH Identified as : VIRIDANS STREPTOCOCCUS GROUP <[id number] CFU/ML Radiology: CT ABDOMEN PELVIS WO CONTRAST [...] POA * (Principal) DAISY (acute kidney injury) ([facility]) 06/20/2022 Yes Acute kidney injury superimposed on CKD ([facility]) 06/20/2022 Yes Chronic kidney disease 06/20/2022 Yes [...] from the original note were not included. [facility] Office: [phone] Chris Osman DO, Terrence Johns DO, Stefani Augustin DO, Jaspreet Mosley DO, Surekha Batista MD, Adrienne Means MD, Rosales Singh MD, Caitlyn Benz MD, Abdoul Camargo MD, Cathy Farooq MD, Chepe CordovaDO, Betty Hess MD, Deja Guevara DO, April Girard MD, Arvin Maya MD, Cody Osman DO, Shima Watson MD, Raphael Connor MD, Jerome Simon DO, Yoselyn Thakkar MD, Codi Self MD, Gilda Sousa MD, Sheyla Viveros MD, Vikki Adorno MD, Jarocho Real DO, Krishan Vogt MD, Radha William MD, Shaunna Freitas, LINEN GRADER, Prabha Hauser, LINEN GRADER, Shirlene Dacosta, LINEN GRADER, Favian Ji, LINEN GRADER, Yesenia Espino, DNP, Ema Mason, LINEN GRADER, Calista Mendez, LINEN GRADER, Gunjan Ruiz, LINEN GRADER, Sharon Barry, LINEN GRADER, Sri Weiner, LINEN GRADER, Gillian Valles PA-C, Carleen Paiz, CO PILOT, Catie Cheema, LINEN GRADER, Chelsea Kulkarni, LINEN GRADER [facility] IN-PATIENT SERVICE [facility] Second Visit Note For more detailed information please refer to the progress note of the day 06/27/2022 8:00 AM Name: Steven Walden Acct: [id number] Room: 0438/0438-01 Day: 7 Admit Date: 06/20/2022 [...] MD 06/27/2022 8:00 AM * Sailaja Schaefer RPH - 06/26/2022 12:51 PM EDT Pharmacy Note [...] stage III, used to follow up at [facility] nephrology, has not seen resistance welder in the last 6 years, with unknown [...] MPV 10.4 10.0 10.0 BMP: Recent Labs 06/24/22 2031 06/25/22 0630 06/26/22 0648 NA 137 139 138 [...] Date/Time NITRU NEGATIVE 06/20/2022 08:30 AM COLORU [place] 06/20/2022 08:30 AM PHUR 5.5 06/20/2022 08:30 [...] Frazier MD, MPH, PGY-2 Internal Medicine Resident [facility], [place], [place] Attending Physician Statement I have discussed the care of Steven Walden, including pertinent history and exam findings, with the Fellow/Residentt. I have reviewed the [place] elements of all parts of the encounter with the Fellow/ Resident. I agree with the assessment, plan and orders as documented by the resident. Ace Hanson MD MD, MRCP (), FACP 06/26/2022 12:28 PM [facility] * Sheyla Viveros MD - 06/26/2022 8:04 AM EDT Images from the original note were not included. [facility] Office: [phone] Chris Osman DO, Terrence Johns DO, Stefani Augustin DO, Jaspreet Mosley DO, Surekha Batista MD, Adrienne Means MD, Rosales Singh MD, Caitlyn Benz MD, Abdoul Camargo MD, Cathy Farooq MD, Chepe Cordova DO, Betty Hess MD, Deja Guevara DO, April Girard MD, Arvin Maya MD, Cody Osman DO, Shima Watson MD, Raphael Connor MD, Jerome Simon DO, Yoselyn Thakkar MD, Codi Self MD, Gilda Sousa MD, Sheyla Viveros MD, Vikki Adorno MD, Jarocho Real DO, Krishan Vogt MD, Radha William MD, Shaunna Freitas CNP, Prabha Hauser LINEN GRADER, Shirlene Dacosta, LINEN GRADER, Favian Ji, LINEN GRADER, Yesenia Espino, TEJINDER, Ema Mason, LINEN GRADER, Calista Mendez, LINEN GRADER, Gunjan Ruiz, LINEN GRADER, Sharon Barry, LINEN GRADER, Sri Weiner, LINEN GRADER, Gillian Valles PADawoodC, Carleen Paiz, CO PILOT, Catie Cheema, LINEN GRADER, Chelsea Kulkarni, LINEN GRADER [facility] IN-PATIENT SERVICE [facility] Progress Note 06/26/2022 8:04 AM Name: Steven Walden Acct: [id number] Room: [address] [place] [address] Day: 6 Admit Date: 06/20/2022 1:58 AM [...] results found for: POCPH, PHART, PH, POCPCO2, FPN8XAP, PCO2, POCPO2, PO2ART, PO2, POCHCO3, CAV5HLT, HCO3, NBEA, PBEA, BEART, BE, THGBART, THB, [id number], [id number], [id number], O2SAT, FIO2 Lab Results Component Value Date/Time SPECIAL RAC 10ML 06/20/2022 03:51 AM Lab Results Component Value Date/Time CULTURE 06/20/2022 08:28 AM NO SIGNIFICANT GROWTH Identified as : VIRIDANS STREPTOCOCCUS GROUP <[id number] CFU/ML Radiology: CT ABDOMEN PELVIS WO CONTRAST [...] POA * (Principal) DAISY (acute kidney injury) ([facility]) 06/20/2022 Yes Acute kidney injury superimposed on CKD ([facility]) 06/20/2022 Yes Chronic kidney disease 06/20/2022 Yes Type 2 diabetes mellitus with stage 3a chronic kidney disease ([facility]) 06/20/2022 Yes Hyperlipidemia 06/20/2022 Yes Primary hypertension 06/20/2022 Yes Left ureteral stone 06/20/2022 Yes BRITTANY (generalized anxiety disorder) 06/20/2022 Yes Major depressive disorder, recurrent, moderate ([facility]) 06/20/2022 Yes Bandemia 06/20/2022 Yes Pyelonephritis of [...] were not included. [facility] - Infectious diseases evaluation Progress Note admission date 06/20/2022 reason for consultation: pyelonephritis Impression : Left pyelonephritis Left ureteral stent for obstructing stone placed 2 weeks PROCESS CONSULTANT Emphysematous cystitis-strep low count bandemia Bilateral nonobstructive [...] with Dr Scherer for infection. Please call [phone] for appointment Infection Control Recommendations [place] Precautions Contact Isolation Antimicrobial Stewardship Recommendations Simplification [...] with Dr Scherer for infection. Please call [phone] for appointment Summary of relevant labs: 06/26/2022 [...] DILATION performed by Kevin Myles MD at [facility] OR HAND SURGERY Right 12/2021 Medications: [...] CL 101 99 101 CO2 22 23 BUN 52* 39* 41* CREATININE 5.19* [...] Brooks MD Office: Perfect serve / office [phone] * Carolina Jimmy, PROCESS CONSULTANT - 06/25/2022 4:15 PM EDT Physical Therapy Facility/Department: [address] ONC/MED SURG Physical Therapy Daily treatment [...] to participate and reassurance. Pt stated to PROCESS CONSULTANT that he wants to kill himself, and they took his tools away , PROCESS CONSULTANT immediately notified RN, and they followed SI [...] 30 mins CGA than SBA AM-PAC Score [facility] Inpatient Mobility Raw Score : 16 (06/25/221614) AM-[facility] Inpatient T-Scale Score : 40.78 (06/25/221614) [...] to follow. Sheyla Viveros MD * Brynn Rubio RN - 06/25/2022 3:01 PM EDT Pt [...] Type of access used=Temp catheter Length of hruluotfi=451 Patient tolerated second treatment well with no complaints. Treatment ended 20 mins early d/t machine clotting. lacquer dipping machine operator Zunilda notified. * Estela Hugo - 06/25/2022 9:50 [...] were not included. [facility] - Infectious diseases evaluation admission date 06/20/2022 reason for consultation: pyelonephritis Impression : Current: Left pyelonephritis Left ureteral stent for obstructing stone placed 2 weeks PROCESS CONSULTANT Emphysematous cystitis-strep low count bandemia Bilateral nonobstructive [...] antidepressants Ok for DC Infection Control Recommendations [place] Precautions Contact Isolation Antimicrobial Stewardship Recommendations Simplification [...] DILATION performed by Kevin Myles MD at [facility] OR HAND SURGERY Right 12/2021 Medications: [...] Chela Gonsalves Office: Perfect serve / office [phone] I have discussed the care of the [...] original note were not included. Occupational Therapy [facility] Occupational Therapy Not Seen Note DATE: 06/25/2022 NAME: Steven Walden : 1960 Patient not seen this date for Occupational Therapy due to: Hemodialysis: Next Scheduled Treatment: 06/26 * Sheyla Viveros MD - 06/25/2022 8:43 AM EDT Images from the original note were not included. [facility] Office: [phone] Chris Osman DO, Terrence Johns DO, Stefani Augustin DO, Jaspreet Mosley DO, Surekha Batista MD, Adrienne Means MD, Rosales Singh MD, Caitlyn Benz MD, Abdoul Camargo MD, Cathy Farooq MD, Chepe Cordova DO, Betty Hess MD, Deja Guevara DO, April Girard MD, Arvin Maya MD, Cody Osman DO, Shima Watson MD, Raphael Connor MD, Jerome Simon DO, Yoselyn Thakkar MD, Codi Self MD, Gilda Sousa MD, Sheyla Viveros MD, Vikki Adorno MD, Jarocho Real DO, Krishan Vogt MD, Radha William MD, Shaunna Freitas CNP, Prabha Hausre CNP, Shirlene Dacosta CNP, Favian Ji CNP, Yesenia Espino, TEJINDER, Ema Mason CNP, Calista Mendez CNP, Gunjan Ruiz LINEN GRADER, Sharon Barry CNP, Sri Weiner CNP, Gillian Valles PA-C, Carleen Paiz, SARA, Catie Cheema CNP, Chelsea Kulkarni, LINEN GRADER [facility] IN-PATIENT SERVICE [facility] Progress Note 06/25/2022 8:43 AM Name: Steven Walden Acct: [id number] Room: 0438/0438-01 Day: 5 Admit Date: 06/20/2022 [...] results found for: POCPH, PHART, PH, POCPCO2, [id number], PCO2, POCPO2, PO2ART, PO2, POCHCO3, GWO8AIQ, HCO3, NBEA, PBEA, BEART, BE, THGBART, THB, DUY3JDR, XPBC0GDD, [id number], O2SAT, FIO2 Lab Results Component Value Date/Time SPECIAL RAC 10ML 06/20/2022 03:51 AM Lab Results Component Value Date/Time CULTURE 06/20/2022 08:28 AM NO SIGNIFICANT GROWTH Identified as : VIRIDANS STREPTOCOCCUS GROUP <[id number] CFU/ML Radiology: CT ABDOMEN PELVIS WO CONTRAST [...] POA * (Principal) DAISY (acute kidney injury) ([facility]) 06/20/2022 Yes Acute kidney injury superimposed on CKD ([facility]) 06/20/2022 Yes Chronic kidney disease 06/20/2022 Yes Type 2 diabetes mellitus with stage 3a chronic kidney disease [facility] [facility] 06/20/2022 Yes Hyperlipidemia 06/20/2022 Yes Primary hypertension 06/20/2022 Yes Left ureteral stone 06/20/2022 Yes BRITTANY (generalized anxiety disorder) 06/20/2022 Yes Major depressive disorder, recurrent, moderate ([facility]) 06/20/2022 Yes Bandemia 06/20/2022 Yes Pyelonephritis of [...] GI prophylaxis-on Protonix Discharge planning-PT OT following. senior engineering manager to follow. Sheyla Viveros MD 06/25/2022 [...] stage III, used to follow up at [facility] nephrology, has not seen resistance welder in the last 6 years, with unknown [...] Date/Time NITRU NEGATIVE 06/20/2022 08:30 AM COLORU [place] 06/20/2022 08:30 AM PHUR 5.5 06/20/2022 08:30 [...] Frazier MD, MPH, PGY-2 Internal Medicine Resident [facility], [place], [place] Attending Physician Statement I have discussed the care of Steven Walden, including pertinent history and exam findings, with the Fellow/Residentt. I have reviewed the [place] elements of all parts of the encounter with the Fellow/ Resident. I agree with the assessment, plan and orders as documented by the resident. Ace Hanson MD MD, MRCP (), FACP 06/25/2022 10:25 AM [facility] * Albertina Pitts RN - 06/24/2022 6:26 [...] of access used= CVC Right Length of gghqptgdb=188 Pt completed 1st tx with no fluid [...] were not included. [facility] - Infectious diseases evaluation admission date 06/20/2022 reason for consultation: pyelonephritis Impression : Current: Left pyelonephritis Left ureteral stent for obstructing stone placed 2 weeks PROCESS CONSULTANT Emphysematous cystitis-strep low count bandemia Bilateral nonobstructive [...] cath Ok for DC Infection Control Recommendations Schoolcraft Precautions Contact Isolation Antimicrobial Stewardship Recommendations Simplification [...] DILATION performed by Kevin Myles MD at [facility] OR HAND SURGERY Right 12/2021 Medications: [...] Scherer MD Office: Perfect serve / office [phone] I have discussed the care of the [...] 06/24/2022 1:09 PM EDT Occupational Therapy Facility/Department: [address] ONC/MED SURG Occupational Therapy Initial Assessment Name: Steven Walden : 1960 Date of Service: 06/24/2022 Chief Complaint Patient presents with Fall Fever Flank Pain Discharge Recommendations: Patient would benefit from continued therapy after discharge OT Equipment Recommendations Equipment Needed: Yes Mobility Devices: ADL Assistive Devices ADL Assistive Devices: Toileting - Drop Arm Commode, Heavy Duty Drop Arm Commode;Solo Musician Patient Diagnosis(es): The primary encounter diagnosis was [...] Ambulation Assistance: Independent Transfer Assistance: Independent Active Director Engineering: No Mode of Transportation: Van, Family Occupation: [...] Hand Dominance Hand Dominance: Right AM-PAC Score AM-[facility] Inpatient Daily Activity Raw Score: 17 (06/24/22 131) AM-[facility] Inpatient ADL T-Scale Score : 37.26 (06/24/22 131) ADL Inpatient CMS 0-100% Score: 50.11 (06/24/22 [...] stage III, used to follow up at [facility] nephrology, has not seen resistance welder in the last 6 years, with unknown [...] Date/Time NITRU NEGATIVE 06/20/2022 08:30 AM COLORU [place] 06/20/2022 08:30 AM PHUR 5.5 06/20/2022 08:30 [...] Frazier MD, MPH, PGY-2 Internal Medicine Resident [facility], [place], [place] Attending Physician Statement I have discussed the care of Steven Walden, including pertinent history and exam findings, with the Fellow/Residentt. I have reviewed the [place] elements of all parts of the encounter with the Fellow/ Resident. I agree with the assessment, plan and orders as documented by the resident. Ace Hanson MD MD, MRCP (), FACP 06/24/2022 12:03 PM [facility] * Sheyla Viveros MD - 06/24/2022 7:25 AM EDT Images from the original note were not included. [facility] Office: [phone] Chris Osman DO, Terrence Johns DO, Stefani Augustin DO, Jaspreet Mosley DO, Surekha Batista MD, Adrienne Means MD, Rosales Singh MD, Caitlyn Benz MD, Abdoul Camargo MD, Cathy Farooq MD, Chepe Cordova DO, Betty Hess MD, Deja Guevara DO, April Girard MD, Arvin Maya MD, Cody Osman DO, Shima Watson MD, Rpahael Connor MD, Jerome Simon DO, Yoselyn Thakkar MD, Codi Self MD, Gilda Sousa MD, Sheyla Viveros MD, Vikki Adorno MD, Jarocho Real DO, Krishan Vogt MD, Radha William MD, Shaunna Freitas, KARINA, Prabha Hauser CNP, Shirlene Dacosta, LINEN GRADER, Favian Ji, LINEN GRADER, Yesenia Espino, TEJINDER, Ema Mason, LINEN GRADER, Calista Mendez, LINEN GRADER, Gunjan Ruiz, LINEN GRADER, Sharon Barry, LINEN GRADER, Sri Weiner, LINEN GRADER, Gillian Valles PA-C, Carleen Paiz, [facility], Catie Cheema, LINEN GRADER, Chelsea Kulkarni, LINEN GRADER [facility] IN-PATIENT SERVICE [facility] Progress Note 06/24/2022 7:25 AM Name: Steven Walden Acct: [id number] Room: 0438/0438-01 Day: 4 Admit Date: 06/20/2022 [...] results found for: POCPH, PHART, PH, POCPCO2, UZQ6JET, PCO2, POCPO2, PO2ART, PO2, POCHCO3, IWU6KVG, HCO3, NBEA, PBEA, BEART, BE, THGBART, THB, KHL1TPW, WPPR4PAW, B6OEJIBV, O2SAT, FIO2 Lab Results Component Value Date/Time SPECIAL RAC 10ML 06/20/2022 03:51 AM Lab Results Component Value Date/Time CULTURE 06/20/2022 08:28 AM NO SIGNIFICANT GROWTH Identified as : VIRIDANS STREPTOCOCCUS GROUP <[id number] CFU/ML Radiology: CT ABDOMEN PELVIS WO CONTRAST [...] POA * (Principal) DAISY (acute kidney injury) ([facility]) 06/20/2022 Yes Acute kidney injury superimposed on [...] GI prophylaxis-on Protonix Discharge planning-PT OT following. senior engineering manager to follow. Sheyla Viveros MD 06/24/2022 [...] stage III, used to follow up at [facility] nephrology, has not seen resistance welder in the last 6 years, with unknown [...] Date/Time NITRU NEGATIVE 06/20/2022 08:30 AM COLORU [place] 06/20/2022 08:30 AM PHUR 5.5 06/20/2022 08:30 [...] from the original note were not included. [facility] Office: [phone] Chris Osman DO, Terrence Johns DO, Stefani Augustin DO, Jaspreet Mosley DO, Surekha Batista MD, Adrienne Means MD, Rosales Singh MD, Caitlyn Benz MD, Abdoul Camargo MD, Cathy Farooq MD, Chepe Cordova DO, Betty Hess MD, Deja Guevara DO, April Girard MD, Arvin Maya MD, Cody Osman DO, Shima Watson MD, Raphael Connor MD, Jerome Simon DO, Yoselyn Thakkar MD, Codi Self MD, Gilda Sousa MD, Sheyla Viveros MD, Vikki Adorno MD, Jarocho Real DO, Krishan Vogt MD, Radha William MD, Shaunna Freitas CNP, Prabha Hauser CNP, Shirlene Dacosta CNP, Favian Ji CNP, Yesenia Espino TEJINDER, Ema Mason, KARINA, Calista Mendez, LINEN GRADER, Gunjan Ruiz, LINEN GRADER, Sharon Barry, LINEN GRADER, Sri Weiner, KARINA, Gillian Valles PA-C, Carleen Paiz, SARA, Catie Cheema, KARINA, Chelsea Kulkarni, LINEN GRADER [facility] IN-PATIENT SERVICE [facility] Progress Note 06/23/2022 8:44 AM Name: Steven Walden Acct: [id number] Room: Day: 3 Admit Date: 06/20/2022 1:58 [...] results found for: POCPH, PHART, PH, POCPCO2, GSE7LBP, PCO2, POCPO2, PO2ART, PO2, POCHCO3, PPC2QKY, HCO3, NBEA, PBEA, BEART, BE, THGBART, THB, QOA8PQY, PGIZ1PDE, I6DEJEEA, O2SAT, FIO2 Lab Results Component Value Date/Time SPECIAL RAC 10ML 06/20/2022 03:51 AM Lab Results Component Value Date/Time CULTURE 06/20/2022 08:28 AM NO SIGNIFICANT GROWTH Identified as : VIRIDANS STREPTOCOCCUS GROUP <[id number] CFU/ML Radiology: CT ABDOMEN PELVIS WO CONTRAST [...] POA * (Principal) DAISY (acute kidney injury) ([facility]) 06/20/2022 Yes Acute kidney injury superimposed on CKD ([facility]) 06/20/2022 Yes Chronic kidney disease 06/20/2022 Yes Type 2 diabetes mellitus with stage 3a chronic kidney disease ([facility]) 06/20/2022 Yes Hyperlipidemia 06/20/2022 Yes Primary hypertension 06/20/2022 Yes Left ureteral stone 06/20/2022 Yes BRITTANY (generalized anxiety disorder) 06/20/2022 Yes Major depressive disorder, recurrent, moderate ([facility]) 06/20/2022 Yes Bandemia 06/20/2022 Yes Pyelonephritis of [...] GI prophylaxis-on Protonix Discharge planning-PT OT eval. senior engineering manager to follow. Sheyla Viveros MD 06/23/2022 [...] stage III, used to follow up at [facility] nephrology, has not seen resistance welder in the last 6 years, with unknown [...] Date/Time NITRU NEGATIVE 06/20/2022 08:30 AM COL[place]U [place] 06/20/2022 08:30 AM PHUR 5.5 06/20/2022 08:30 [...] Frazier MD, MPH, PGY-2 Internal Medicine Resident [place], [place] Patient seen with resident. Known history [...] 8:58 AM EDT [facility] - Infectious diseases evaluation admission date 06/20/2022 reason for consultation: pyelonephritis Impression : Current: Left pyelonephritis Left ureteral stent for obstructing stone placed 2 weeks PROCESS CONSULTANT Emphysematous cystitis-strep low count bandemia Bilateral nonobstructive [...] cultures- disc w daughter Infection Control Recommendations Schoolcraft Precautions Contact Isolation Antimicrobial Stewardship Recommendations Simplification [...] DILATION performed by Kevin Myles MD at [facility] OR HAND SURGERY Right 12/2021 Medications: [...] BMP: Recent Labs 06/21/22 0830 06/21/22 1432 06/21/22203506/22/22 0643 NA 126* < > 129* 133* [...] Chela Gonsalves Office: Perfect serve / office [phone] I have discussed the care of the [...] from the original note were not included. [facility] Office: [phone] Chris Osman DO, Terrence Johns DO, Stefani Augustin DO, Jaspreet Mosley DO, Surekha Batista MD, Adrienne Means MD, Rosales Singh MD, Caitlyn Benz MD, Abdoul Camargo MD, Cathy Farooq MD, Chepe Cordova DO, Betty Hess MD, Deja Guevara DO, April Girard MD, Arvin Maya MD, Cody Osman DO, Shima Watson MD, Raphael Connor MD, Jerome Simon DO, Yoselyn Thakkar MD, Codi Self MD, Gilda Sousa MD, Sheyla Viveros MD, Vikki Adorno MD, Jarocho Real DO, Krishan Vogt MD, Radha William MD, Shaunna Freitas CNP, Prabha Hauser CNP, Shirlene Dacosta CNP, Favian Ji, LINEN GRADER, Yesenia Espino, TEJINDER, Ema Mason, KARINA, Calista Mendez CNP, Gunjan Ruiz LINEN GRADER, Sharon Barry CNP, Sri Weiner CNP, Gillian Valles PA-C, Carleen Paiz, [place] PILOT, Catie Cheema, LINEN GRADER, Chelsea Kulkarni, LINEN GRADER [facility] IN-PATIENT SERVICE [facility] Progress Note 06/22/2022 8:52 AM Name: Steven Walden Acct: [id number] Room: [address] [place] [address] Day: 2 Admit Date: 06/20/2022 1:58 AM [...] following.. Patient is continued on Zyvox at [facility] for UTI. Her kidney function continue to [...] C) Recent Labs 06/21/22 1121 06/21/22 1612 06/21/228 06/22/22 0728 POCGLU 273* 330* 326* 248* I/O [...] results found for: POCPH, PHART, PH, POCPCO2, EIY2KZA, PCO2, POCPO2, PO2ART, PO2, POCHCO3, WDQ6IOA, HCO3, NBEA, PBEA, BEART, BE, THGBART, THB, EXS3VOE, MWVJ7DYO, F4UKCDGO, O2SAT, FIO2 Lab Results Component Value Date/Time [...] POA * (Principal) DAISY (acute kidney injury) ([facility]) 06/20/2022 Yes Acute kidney injury superimposed on CKD ([facility]) 06/20/2022 Yes Chronic kidney disease 06/20/2022 Yes Type 2 diabetes mellitus with stage 3a chronic kidney disease ([facility]) 06/20/2022 Yes Hyperlipidemia 06/20/2022 Yes Primary hypertension 06/20/2022 Yes Left ureteral stone 06/20/2022 Yes BRITTANY (generalized anxiety disorder) 06/20/2022 Yes Major depressive disorder, recurrent, moderate ([facility]) 06/20/2022 Yes Bandemia 06/20/2022 Yes Pyelonephritis of [...] GI prophylaxis-on Protonix Discharge planning-PT OT eval. senior engineering manager to follow. Sheyla Viveros MD 06/22/2022 8:52 AM * Fanny Del Rosario, PT - 06/21/2022 12:35 PM EDT Physical Therapy Facility/Department: [facility] RENAL//MED SURG Physical Therapy Initial Assessment [...] Ambulation Assistance: Independent Transfer Assistance: Independent Active Director Engineering: No Mode of Transportation: Van, Family Occupation: [...] assess- pt seated in bedside chair upon filing writer's exit) Bed Mobility Comments: Assist provided [...] AM-PAC Inpatient T-Scale Score : 40.78 (06/21/22 1234) Mobility Inpatient CMS 0-100% Score: 54.16 (06/21/22 [facility]) Mobility Inpatient [facility] G-Code Modifier : CK (06/21/22 123) Goals Short Term Goals Time Frame for [...] from the original note were not included. [facility] Office: [phone] Chris Osman DO, Terrence Johns DO, Stefani Augustin DO, Jaspreet Mosley DO, Surekha Batista MD, Adrienne Means MD, Rosales Singh MD, Caitlyn Benz MD, Abdoul Camargo MD, Cathy Farooq MD, Chepe Cordova DO, Betty Hess MD, Deja Guevara DO, April Girard MD, Arvin Maya MD, Cody Osman DO, Shima Watson MD, Raphael Connor [...] SARA, Catie Cheema CNP, Chelsea Kulkarni, KARINA [facility] IN-PATIENT SERVICE [facility] Progress Note 06/21/2022 10:30 AM Name: Steven Walden Acct: [id number] Room: [facility] Day: 1 Admit Date: 06/20/2022 1:58 AM [...] BID insulin lispro 0-8 Units SubCUTAneous TID insulin [...] Max:100.9 F (38.3 C) Recent Labs 06/20/22 11506/20/22 1612 06/20/22200806/21/22 0707 POCGLU 129* 163* 183* 248* I/O [...] -- Recent Labs 06/20/22 03306/20/22 0905 06/20/22 1155 06/20/22 1612 06/20/22200806/21/22 0707 06/21/22 0830 PROT 7.8 [...] results found for: POCPH, PHART, PH, POCPCO2, LNZ8LYH, PCO2, POCPO2, PO2ART, PO2, POCHCO3, OIX9WUI, HCO3, NBEA, PBEA, BEART, BE, THGBART, THB, LVL8WIW, OBGJ6GVT, N0YPCTXD, O2SAT, FIO2 Lab Results Component Value Date/Time [...] POA * (Principal) DAISY (acute kidney injury) ([facility]) 06/20/2022 Yes Acute kidney injury superimposed on CKD ([facility]) 06/20/2022 Yes Chronic kidney disease 06/20/2022 Yes Type 2 diabetes mellitus with stage 3a chronic kidney disease ([facility]) 06/20/2022 Yes Hyperlipidemia 06/20/2022 Yes Primary hypertension 06/20/2022 Yes Left ureteral stone 06/20/2022 Yes BRITTANY (generalized anxiety disorder) 06/20/2022 Yes Major depressive disorder, recurrent, moderate ([facility]) 06/20/2022 Yes Bandemia 06/20/2022 Yes Pyelonephritis of [...] were not included. [facility] - Infectious diseases evaluation admission date 06/20/2022 reason for consultation: pyelonephritis Impression : Current: Left pyelonephritis Left ureteral stent for obstructing stone placed 2 weeks PROCESS CONSULTANT Emphysematous cystitis bandemia Bilateral nonobstructive kidney stones Diabetes mellitus, CKD 3, obesity Discussion / summary of stay / plan of care Recommendations Pending blood cultures and urine culture continue Zosyn, switch to Zyvox from vancomycin to protect the kidney Adjust antibiotics to final cultures- disc w daughter Infection Control Recommendations [place] Precautions Contact Isolation Antimicrobial Stewardship Recommendations Simplification [...] DILATION performed by Kevin Myles MD at [facility] OR HAND SURGERY Right 12/2021 Medications: [...] Chela Gonsalves Office: Perfect serve / office [phone] I have discussed the care of the [...] 3.64* 3.65* Recent Labs 06/20/22 0830 COLORU [place]* PHUR 5.5 WBCUA 5 TO 10 RBCUA [...] Medrano RPH - 06/20/2022 9:04 AM EDT [facility] Pharmacokinetic Monitoring Service - Vancomycin [...] 06/20/2022 9:02 AM documented [facility] Work Phone: 1(177) 153-514603-22-2023 Hospital course Narrative* Betty Hess MD - 06/30/2022 11:06 AM EDT Images from the original note were not included. [facility] Office: [phone] Chris Osman DO, Terrence Johns DO, Stefani Augustin DO, Jaspreet Mosley DO, Surekha Batista MD, Adrienne Means MD, Rosales Singh MD, Caitlyn Benz MD, Abdoul Camargo MD, Cathy Farooq MD, Chepe Cordova DO, Betty Hess MD, Deja Guevara DO, April Girard MD, Arvin Maya MD, Cody Osman DO, Shima Watson MD, Raphael Connor MD, Jerome Simon DO, Yoselyn Thakkar MD, Codi Self MD, Gilda Sousa MD, Sheyla Viveros MD, Vikki Adorno MD, Jarocho Real DO, Krishan Vogt MD, Radha William MD, Shaunna Freitas, LINEN GRADER, Prabha Hauser, LINEN GRADER, Shirlene Dacosta, LINEN GRADER, Favian Ji, LINEN GRADER, Yesenia Espino, TEJINDER, Ema Mason, LINEN GRADER, Calista Mendez, LINEN GRADER, Gunjan Ruiz, LINEN GRADER, Sharon Barry, LINEN GRADER, Sri Weiner, LINEN GRADER, Gillian Valles PA-C, Carleen Paiz, CO PILOT, Catie Cheema, LINEN GRADER, Chelsea Kulkarni, LINEN GRADER [facility] IN-PATIENT SERVICE [facility] Discharge Summary Patient ID: Steven Walden : 1960 ACCOUNT: [id number] Patient's PCP: Darion Randle MD Admit Date: [...] the management of DAISY (acute kidney injury) ([facility]) , presented to ER with Fall, Fever, [...] REMOVAL, STONE BASKETING Surgeon(s): Kevin Myles MD Assurance Analyst: * No surgical staff found * Anesthesia: [...] Physician Follow Up: Kevin Myles MD [address] [facility] [id number] Follow up in 6 week(s) for stone fu Darion Randle MD [address] [facility] [address] [facility] [address] Follow up Yo Batista MD [address] [facility] [address] Follow up Requiring Further Evaluation/Follow Up POST [...] capsule by mouth daily Vitamin D (Ergocalciferol) 94318 units Caps Take 50,000 Units by mouth [...] this patient's care. documented in this encounterBON Power Liens Phone: [phone] 230-391203-21-2023 Hospital Discharge instructions* Discharge Instructions* Miles Mitchell [...] directive for healthcare treatment Durable power of compliance attorney for health care;Health care treatment directive No, copy requested from family -- Santo Garfield [phone] Admitting Physician: Sheyla Viveros MD PCP: Darion Randle MD Discharging Nurse: Discharging Hospital Unit/Room#: 0438/0438-01 Discharging Unit Phone Number: Emergency Contact: Extended Emergency Contact Information Primary Emergency Contact: Santo Walden [employer] Relation: Spouse Preferred language: Burmese Plastic Production Machine Setter needed? No Secondary Emergency Contact: [employer] Relation: Child Preferred language: Burmese Plastic Production Machine Setter needed? No Past Surgical History: Past Surgical History: Procedure Laterality Date CHOLECYSTECTOMY 2011 CYSTOSCOPY Left 05/28/2022 CYSTOSCOPY, URETERAL STENT INSERTION, URETHRAL DILATION performed by Kevin Myles MD at [facility] OR CYSTOSCOPY Left 06/29/2022 CYSTOSCOPY, URETEROSCOPY, LEFT STENT REMOVAL, STONE BASKETING (Left) CYSTOSTOMY W/ STENT INSERTION Left 06/29/2022 Stent exchange HAND SURGERY Right 12/2021 IR TUNNELED CATHETER PLACEMENT GREATER THAN 5 YEARS 06/28/2022 IR TUNNELED CATHETER PLACEMENT GREATER THAN 5 YEARS 06/28/2022 Gillian Batista MD [facility] SPECIAL PROCEDURES Immunization History: Immunization History Administered Date(s) Administered COVID-19, J&J, (age 18y+), IM, 0.5 mL 09/04/2020 Active Problems: Patient Active Problem List Diagnosis Code DAISY (acute kidney injury) ([facility]) N17.9 Acute kidney injury superimposed on CKD ([facility]) N17.9, N18.9 Chronic kidney disease N18.9 Type 2 diabetes mellitus with stage 3a chronic kidney disease (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) F33.1 Tremor R25.1 Bandemia D72.825 Pyelonephritis N12 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 Hyponatremia E87.1 Dependence on renal dialysis ([facility]) Z99.2 Metabolic acidosis E87.20 Isolation/Infection: Isolation No [...] MENTAL STATUS:} IV Access: { SHAYNE IV ACCESS:581038876} Nursing Mobility/ADLs: Walking {CHP DME ADLs:347388201} Transfer {CHP DME ADLs:774219691} Bathing {CHP DME ADLs:159410530} Dressing {CHP DME ADLs:185872943} Toileting {CHP DME ADLs:332263663} Feeding {CHP DME ADLs:499673108} Television Presenter {CHP DME ADLs:870911581} Med Delivery { SHAYNE MED Delivery:437377507} Wound Care Documentation and Therapy: Elimination: Continence: Bowel: {YES / NO:} Bladder: {YES / NO:} Urinary Catheter: {Urinary Catheter:743298939} Colostomy/Ileostomy/Ileal Conduit: {YES / NO:} Date of Last BM: Intake/Output Summary (Last 24 hours) at 06/29/2022 1704 Last data filed at 06/29/2022 1001 Gross per 24 hour Intake 300 ml Output 1300 ml Net -1000 ml I/O last 3 completed shifts: In: 120 [P.O.:120] Out: 2124 [Urine:2124] Safety Concerns: { SHAYNE Safety Concerns:404902096} Impairments/Disabilities: { SHAYNE Impairments/Disabilities:535873008} Nutrition Therapy: Current Nutrition Therapy: { SHAYNE Diet List:028695915} Routes of Feeding: {[facility] DME Other Feedings:653525500} Liquids: {[facility] liquid thickness:49596} Daily Fluid Restriction: {P DME Yes amt example:472925253} Last Modified Barium Swallow with Video (Video Swallowing Test): {Done Not Done Date:} Treatments at the Time of Hospital Discharge: Respiratory Treatments: Oxygen Therapy: {Therapy; copd oxygen:93588} Ventilator: { CC Vent List:565981005} Rehab Therapies: {THERAPEUTIC INTERVENTION:2603718367} Weight Bearing Status/Restrictions: { CC Weight Bearin} Other Medical Equipment (for information only, NOT a DME order): {EQUIPMENT:189738138} Other Treatments: Patient's personal belongings (please select all that are sent with patient): {CHP DME Belongings:176702106} RN SIGNATURE: {Esignature:491913855} CASE MANAGEMENT/SOCIAL WORK SECTION Inpatient Status Date: Readmission Risk Assessment Score: Readmission Risk Risk of Unplanned Readmission: 29 Discharging to Facility/ Agency Name: Address: Phone: Fax: Dialysis Facility (if applicable) Name: Address: Dialysis Schedule: Phone: Fax: Real Estate Financial Analyst/Litigation Secretary signature: {Esignature:286149415} PHYSICIAN SECTION Prognosis: Guarded Condition at Discharge: [...] H&P PHYSICIAN SIGNATURE: documented in [facility] [employer] Work Phone: [phone] 890-281803-20-2023 NotePROCEDURE: ULTRASOUND GUIDED VASCULAR ACCESS. FLUOROSCOPY GUIDED [...] the infraclavicular region and a tunneled 14 Bulgarian x 28 cm split cath tunneled dialysis [...] Signed by: Gillian Batista MD 06/28/22 [facility]-2023 NotePROCEDURE: ULTRASOUND GUIDED VASCULAR ACCESS. FLUOROSCOPY GUIDED [...] the procedure including risks, benefits, and alternatives. Schoolcraft protocol was observed using maximum sterile barrier [...] the needle was removed and a 5 Bulgarian sheath was placed. The microwire was exchanged for an 0.035 stiff glide wire, and the tract was serially dilated up to 12 Bulgarian; attempted dilation up to 14 Bulgarian was initially unsuccessful. A 0.035 stiff Glidewire was exchanged for a 0.035 Amplatz wire, and the vessel was dilated with a 14 Bulgarian vessel dilator. Subsequently this allowed for accommodation of a 14 Bulgarian by 20 cm non tunneled [facility] hemodialysis [...] by: MD Jeff Borja PA Signed by: Cody Bolivar MD 06/24/22 Final result[facility]03-03-2023 History of Present illness Narrative* Gunjan Jackson [...] were not included. ACUTE INPATIENT REHABILITATION DISCHARGE [facility] Patient Name: Steven Walden Patient discharged in [...] including Glasses, C=PAP, clothes, cell phone and operater sent with patient/responsible republican. Home medications sent [...] strengthening, endurance, ADLs, and self care. Has [place] prn pain/has not been using discharge plan [...] day Internal medicine for medical management DC 3/ okay with internal medicine/gsbrxsusng-dkpeyv-ei with 1. Yoana Randle MD 2. Neurology [...] anxiety Interval History: The patient was seen gnuq-[id number]. We discussed that neurology had recommended weaning [...] 2.50 1.0 - 4.8 k/uL Final Absolute Dawson # 06/05/2022 0.83 0.1 - 1.3 k/uL [...] from the original note were not included. [facility] Neurology Specialist [address] [place] [address] PH: [phone] or [phone] FAX: [phone] Brief history: Steven Walden is a 62 [...] EAG 160 05/30/2022 No results found for: [id number] Neurological work up: Study Finding CT head [...] Mcdaniel RN - 06/10/2022 4:06 PM EST Rn Pool resumed care of patient at this time * Sahra Dumont - 06/10/2022 1:11 PM EST 06/10/22 1045 Encounter Summary Encounter Overview/Reason Spiritual/Emotional Needs Service Provided For: Patient Referral/Consult From: [employer] Spouse;Family members Last Encounter 06/10/22 Complexity of Encounter Low Begin Time 1045 End Time 1100 Total Time Calculated 15 min Spiritual/Emotional needs Type Spiritual Support Assessment/Intervention/Outcome Assessment Calm;Coping Intervention Active listening;Discussed illness injury and it s impact;Explored/Affirmed feelings, thoughts, concerns;Prayer (assurance of)/[place];Sustaining Presence/Ministry of presence Outcome Coping;Engaged in conversation;Expressed [...] strengthening, endurance, ADLs, and self care. Has [place] prn pain discharge plan 06/11 Carballo removed [...] Internal medicine for medical management DC 3 okay with internal medicine/auvpsasccx-gizmvz-jp with 1. Yoana Randle MD 2. Neurology [...] anxiety Interval History: The patient was seen ilgb-bg-gliy. He is sitting out of bed in [...] 2.50 1.0 - 4.8 k/uL Final Absolute Dawson # 06/05/2022 0.83 0.1 - 1.3 k/uL [...] in voice recognition technology. * Joelle Burks, PROCESS CONSULTANT - 06/09/2022 3:33 PM EST Physical Therapy Facility/Department: [facility] Rehabilitation Physical Therapy Progress Note NAME: Steven Walden : 1960 (62 y.o.) CODE STATUS: Full Code Date of Service: 06/09/22 Additional Pertinent Hx: Steven Walden is a 62 y.o. male with history of HTN, HLD, diabetes, CKD, peptic ulcer, gout, and depression admitted to [facility] on 05/28/2022. He initially presented to [facility] with flank pain and fever for 2 [...] on ramp 50 ft x 2, CGA Intermediate Goals Time Frame for Link Knitting Machine Operator Goals : By DC Link Knitting Machine Operator Goal 1: Mod-I transfers Link Knitting Machine Operator Goal 2: Mod-I gait withleast restricitive device distance of 150 ft on level as well as incline surfaces. Intermediate Goal 3: Pt able to go up and down 8 to 12 steps with 1 UE support at supervision level. Intermediate Goal 4: Improve 2MWT distance to atleast 150 ft to improve activity tolerance and gait speed. Link Knitting Machine Operator Goal 5: 5 X sit<>stand without UE [...] from the original note were not included. [facility] Neurology Specialist [address] [place] [address] PH: [phone] or [phone] FAX: [phone] Brief history: Steven Walden is a 62 [...] EAG 160 05/30/2022 No results found for: [id number] Neurological work up: Study Finding CT head [...] can be extrapolated by contextual derivation. * Chela RosalesgadeilSANCHEZ - 06/09/2022 3:25 PM EST [facility] Acute Rehabilitation Occupational Therapy Daily Treatment Note Date: 06/09/22 Patient Name: Steven Walden Room: 2609/2609-01 Account: [id number] : 1960 (62 y.o.) Gender: male Referring Practitioner: Sachin Mckeon MD Diagnosis: Debility Treatment Diagnosis: Impaired self-care status. Past Medical History: has a past medical history of Anxiety, Chronic kidney disease, Congenital heart defect, Diabetes mellitus (HCC), Gout, Hyperlipidemia, Hypertension, Major depressive disorder, Morbid obesity ([facility]), Neuropathy, SHADE (obstructive sleep apnea), and Peptic [...] w/c displaying trunk flexion, did not wash sada/buttock area this date Upper Extremity Dressing Assistance [...] needed OT Equipment Recommendations ADL Assistive Devices: Solo Musician;Sock-Aid Hard;Long-handled Shoe Horn Safety Devices Safety Devices [...] promote increased independence with self-care and mobility Link Knitting Machine Operator Goals Time Frame for Intermediate Goals : By discharge Link Knitting Machine Operator Goal 1: Patient will perform BADLs with modified independence and Good safety. Link Knitting Machine Operator Goal 2: Patient will perform functional mobility and transfers during self-care with modified independence, least restrictive mobility device, and good safety. Intermediate Goal 3: Patient will stand for 10+ minutes with 0-1 UE support, modified independence, and no LOB while engaging functional activity of choice. Link Knitting Machine Operator Goal 4: Patient will perform simple meal prep (i.e. breakfast sandwich) with modified independence. Link Knitting Machine Operator Goal 5: Patient will perform pet care (i.e. feeding his dog Pumpkin, taking her outside on leash) with stand by assist. Link Knitting Machine Operator Goal 6: Patient will perform self-care with improved bilateral fine motor control as evidenced by bilateral 5 second improvement in 9 hole peg test. Intermediate Goal 7: Patient will perform self-care with improved R hand screed operator strength as evidenced by10# improvement in dynamometer [...] strengthening, endurance, ADLs, and self care. Has [place] prn pain discharge plan 06/11 Carballo removed [...] management DC 3/3 if okay with internal medicine/ycgulumodv-vhfgiw-aw with 1. PCP 2. Neurology 3. Urology [...] contextual diversion * Adolph Romero APRN - LINEN GRADER - 06/08/2022 9:14 PM EST Department of [...] 2.50 1.0 - 4.8 k/uL Final Absolute Dawson # 06/05/2022 0.83 0.1 - 1.3 k/uL [...] strengthening, endurance, ADLs, and self care. Has [place] prn pain discharge plan 06/11 Carballo removed [...] management DC 06/11 if okay with internal medicine/tzripmrlpm-sisksq-yi with 1. PCP 2. Neurology 3. Urology [...] from the original note were not included. [facility] Neurology Specialist [address] [place] [address] [place] [address] PH: [phone] or [phone] FAX: [phone] Brief history: Steven Walden is a 62 [...] EAG 160 05/30/2022 No results found for: [id number] Neurological work up: Study Finding CT head [...] 06/08/2022 3:36 PM EST Physical Therapy Facility/Department: [facility] Rehabilitation Physical Therapy Progress Note NAME: Steven Walden : 1960 (62 y.o.) CODE STATUS: Full Code Date of Service: 06/08/22 Additional Pertinent Hx: Steven Walden is a 62 y.o. male with history of HTN, HLD, diabetes, CKD, peptic ulcer, gout, and depression admitted to [facility] on 05/28/2022. He initially presented to [facility] with flank pain and fever for 2 [...] on ramp 50 ft x 2, CGA Intermediate Goals Time Frame for Intermediate Goals : By DC Link Knitting Machine Operator Goal 1: Mod-I transfers Intermediate Goal 2: Mod-I gait withleast restricitive device distance of 150 ft on level as well as incline surfaces. Intermediate Goal 3: Pt able to go up and down 8 to 12 steps with 1 UE support at supervision level. Intermediate Goal 4: Improve 2MWT distance to atleast 150 ft to improve activity tolerance and gait speed. Link Knitting Machine Operator Goal 5: 5 X sit<>stand without UE [...] 06/07/2022 3:31 PM EST Physical Therapy Facility/Department: [facility] Rehabilitation Physical Therapy Progress Note NAME: Steven Walden : 1960 (62 y.o.) CODE STATUS: Full Code Date of Service: 06/07/22 Additional Pertinent Hx: Steven Walden is a 62 y.o. male with history of HTN, HLD, diabetes, CKD, peptic ulcer, gout, and depression admitted to [facility] on 05/28/2022. He initially presented to [facility] with flank pain and fever for 2 [...] on ramp 50 ft x 2, CGA Link Knitting Machine Operator Goals Time Frame for Intermediate Goals : By DC Link Knitting Machine Operator Goal 1: Mod-I transfers Link Knitting Machine Operator Goal 2: Mod-I gait withleast restricitive device distance of 150 ft on level as well as incline surfaces. Link Knitting Machine Operator Goal 3: Pt able to go up and down 8 to 12 steps with 1 UE support at supervision level. Intermediate Goal 4: Improve 2MWT distance to atleast 150 ft to improve activity tolerance and gait speed. Intermediate Goal 5: 5 X sit<>stand without UE [...] 1102 1442 Minutes 60 35 Joelle Burks, PROCESS CONSULTANT, 06/07/22 at 3:31 PM * Marcus Yepez [...] strengthening, endurance, ADLs, and self care. Has [place] prn pain Carballo removed 06/02 on Keflex [...] 06/06/2022 3:16 PM EST Physical Therapy Facility/Department: [facility] Rehabilitation Physical Therapy Daily Treatment [...] DILATION performed by Kevin Myles MD at [facility] OR HAND SURGERY Right 12/2021 Patient [...] BLE exs x 15-20. 2# cuffs and [place] tband Circulation/Endurance Exercises: UBE 4' FWD/RETRO Dynamic [...] on ramp 50 ft x 2, CGA Link Knitting Machine Operator Goals Time Frame for Intermediate Goals : By DC Link Knitting Machine Operator Goal 1: Mod-I transfers Link Knitting Machine Operator Goal 2: Mod-I gait withleast restricitive device distance of 150 ft on level as well as incline surfaces. Link Knitting Machine Operator Goal 3: Pt able to go up and down 8 to 12 steps with 1 UE support at supervision level. Intermediate Goal 4: Improve 2MWT distance to atleast 150 ft to improve activity tolerance and gait speed. Link Knitting Machine Operator Goal 5: 5 X sit<>stand without UE [...] Out 0859 1407 Minutes 59 33 Cathy Bai PROCESS CONSULTANT, 06/06/22 at 3:16 PM * Jose Raul Krause - 06/06/2022 1:42 PM EST [facility] PROGRESS NOTE Room # 2609/2609-01 Name: Steven Walden Reason for visit: nurse referred I visited the patient. Admit Date & Time: 06/04/2022 8:44 PM Assessment: Steven Walden is a 62 y.o. male in the hospital because debility. Upon entering the room pt was sitting in chair Intervention: I introduced myself and my title as professor of legal studies I offered space for pt to express feelings, needs, andconcerns and provided a ministry presence. Pt shared about his recent health challenges. Pt also shared about his family. Pt has good support from family. This filing writer engaged in conversation w/ pt actively listening to pt and providing emotional support. Pt appeared to be coping Outcome: Pt expressed gratitude for this professor of legal studies visit Plan: Chaplains will remain available to offer spiritual and emotional support as needed. . Spiritual Care Department [facility] 06/06/22 1340 Encounter Summary Service Provided [...] Johns, OT - 06/06/2022 12:51 PM EST [facility] Acute Rehabilitation Occupational Therapy Daily Treatment Note Date: 06/06/22 Patient Name: Steven Walden Room: 2609/2609-01 Account: [id number] : 1960 (62 y.o.) Gender: male Referring Practitioner: Sachin Mckeon MD Diagnosis: Debility Treatment Diagnosis: Impaired self-care status. Past Medical History: has a past medical history of Anxiety, Chronic kidney disease, Congenital heart defect, Diabetes mellitus (HCC), Gout, Hyperlipidemia, Hypertension, Major depressive disorder, Morbid obesity ([facility]), Neuropathy, SHADE (obstructive sleep apnea), and Peptic [...] promote increased independence with self-care and mobility Intermediate Goals Time Frame for Link Knitting Machine Operator Goals : By discharge Link Knitting Machine Operator Goal 1: Patient will perform BADLs with modified independence and Good safety. Link Knitting Machine Operator Goal 2: Patient will perform functional mobility and transfers during self-care with modified independence, least restrictive mobility device, and good safety. Link Knitting Machine Operator Goal 3: Patient will stand for 10+ minutes with 0-1 UE support, modified independence, and no LOB while engaging functional activity of choice. Link Knitting Machine Operator Goal 4: Patient will perform simple meal prep (i.e. breakfast sandwich) with modified independence. Intermediate Goal 5: Patient will perform pet care (i.e. feeding his dog Pumpkin, taking her outside on leash) with stand by assist. Intermediate Goal 6: Patient will perform self-care with improved bilateral fine motor control as evidenced by bilateral 5 second improvement in 9 hole peg test. Link Knitting Machine Operator Goal 7: Patient will perform self-care with improved R hand screed operator strength as evidenced by10# improvement in dynamometer [...] self care. On Keflex until 06/09/22. Has [place] prn pain DAISY on CKD III: Will [...] 06/05/2022 4:20 PM EST Physical Therapy Facility/Department: [facility] Rehabilitation Physical Therapy Progress Note NAME: Steven Walden : 1960 (62 y.o.) CODE STATUS: Full Code Date of Service: 06/05/22 Additional Pertinent Hx: Steven Walden is a 62 y.o. male with history of HTN, HLD, diabetes, CKD, peptic ulcer, gout, and depression admitted to [facility] on 05/28/2022. He initially presented to [facility] with flank pain and fever for 2 [...] on ramp 50 ft x 2, CGA Link Knitting Machine Operator Goals Time Frame for Link Knitting Machine Operator Goals : By DC Link Knitting Machine Operator Goal 1: Mod-I transfers Link Knitting Machine Operator Goal 2: Mod-I gait withleast restricitive device distance of 150 ft on level as well as incline surfaces. Intermediate Goal 3: Pt able to go up and down 8 to 12 steps with 1 UE support at supervision level. Link Knitting Machine Operator Goal 4: Improve 2MWT distance to atleast 150 ft to improve activity tolerance and gait speed. Link Knitting Machine Operator Goal 5: 5 X sit<>stand without UE support in < 20 seconds to improve fluidity for transfers/mobility buttermaker goal 6: Improve Tinetti balance score to [...] Time Out 1524 Minutes 33 Joelle Burks, PROCESS CONSULTANT, 06/05/22 at 4:21 PM * Virginia Caceres, PT - 06/05/2022 1:22 PM EST Physical Therapy Facility/Department: [facility] Rehabilitation Physical Therapy Initial Assessment [...] DILATION performed by Kevin Myles MD at [facility] OR HAND SURGERY Right 12/2021 Chart Reviewed: Yes Patient assessed for rehabilitation services?: Yes Additional Pertinent Hx: Steven Walden is a 62 y.o. male with history of HTN, HLD, diabetes, CKD, peptic ulcer, gout, and depression admitted to [facility] on 05/28/2022. 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 Intermediate Goal 3: Pt able to go up and down 8 to 12 steps with 1 UE support at supervision level. Intermediate Goal 4: Improve 2MWT distance to atleast 150 ft to improve activity tolerance and gait speed. Link Knitting Machine Operator Goal 5: 5 X sit<>stand without UE support in < 20 seconds to improve fluidity for transfers/mobility [facility] goal 6: Improve Tinetti balance score to [...] BRIAN Espinoza - 06/05/2022 12:30 PM EST [facility] Acute Rehabilitation Occupational Therapy Evaluation Date: 06/05/22 Patient Name: Steven Walden Room: 2609/2609-01 Account: [id number] : 1960 (62 y.o.) Gender: male Referring Practitioner: Sachin Mckeon MD Diagnosis: Debility Treatment Diagnosis: Impaired self-care status. Additional Pertinent Hx: Steven Walden is a 62 y.o. male with history of HTN, HLD, diabetes, CKD, peptic ulcer, gout, and depression admitted to [facility] on 05/28/2022. He initially presented to [facility] with flank pain and fever for 2 [...] and any other acute concerns. Admitted to [facility] In[facility] Rehabilitation Unit on 06/04/22 to maximize safety and independence with self-care and functional mobility fordischarge home. Past Medical History: has a past medical history of Anxiety, Chronic kidney disease, Congenital heart defect, Diabetes mellitus (HCC), Gout, Hyperlipidemia, Hypertension, Major depressive disorder, Morbid obesity (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 [...] Hand General: 4+/5 Left Hand Strength - Wash Plant Operator (lbs) Handle Setting 3: 75.33# (66#, 75#, 85#; norms: 65-103#) RUE AROM (degrees) RUE AROM : WFL Right Hand AROM (degrees) Right Hand AROM: WFL Tone LUE LUE Tone: Normotonic RUE Strength Gross RUE Strength: WFL R Hand General: 4/5 Right Hand Strength - Wash Plant Operator (lbs) Handle Setting 3: 56.33# (49#, 55#, [...] promote increased independence with self-care and mobility Link Knitting Machine Operator Goals Time Frame for Intermediate Goals : By discharge Link Knitting Machine Operator Goal 1: Patient will perform BADLs with modified independence and Good safety. Intermediate Goal 2: Patient will perform functional mobility and transfers during self-care with modified independence, least restrictive mobility device, and good safety. Link Knitting Machine Operator Goal 3: Patient will stand for 10+ minutes with 0-1 UE support, modified independence, and no LOB while engaging functional activity of choice. Link Knitting Machine Operator Goal 4: Patient will perform simple meal prep (i.e. breakfast sandwich) with modified independence. Link Knitting Machine Operator Goal 5: Patient will perform pet care (i.e. feeding his dog Pumpkin, taking her outside on leash) with stand by assist. Link Knitting Machine Operator Goal 6: Patient will perform self-care with improved bilateral fine motor control as evidenced by bilateral 5 second improvement in 9 hole peg test. Intermediate Goal 7: Patient will perform self-care with improved R hand screed operator strength as evidenced by10# improvement in dynamometer [...] were not included. ACUTE INPATIENT REHABILITATION ADMISSION [facility] Patient Name: Steven Walden Date of Admit: [...] Magana Nurse 2 Completing Skin Assessment Fercho Jason Active pressure injuries or complex wounds identified? [...] following documents provided to patient/responsible republican: 1. [facility] Inpatient Acute Rehabilitation [facility] Individualized Disclosure Statement 2. Data Collection Information Summary for Patients in Inpatient Rehabilitation Facilities 3. Privacy Act Statement - Health Care Records Care plan was created with patient/responsible republican input and goals were agreed upon. Please refer to the admission navigator for further information. documented in this encounterBON Power [facility] Phone: 1(860) 484-659403-03-2023 Evaluation note* Diagnosis Debility- Primary Debility, unspecified Stage 3a chronic kidney disease (HCC) Type 2 diabetes mellitus with stage 3a chronic kidney disease, unspecified whether group home insulin use (HCC) Physical deconditioning Debility, unspecified Major depressive disorder, recurrent, moderate (HCC) Major depressive disorder, recurrent episode, moderate Tremor Abnormal involuntary movements documented in this encounter [facility] [employer] Phone: [phone]) 577-344402-28-2023 Hospital Discharge instructions* Discharge Instr - SHAYNE* [...] Extended Emergency Contact Information Primary Emergency Contact: Santo Walden Mobile Relation: Spouse Preferred language: Burmese Plastic Production Machine Setter needed? No Secondary Emergency Contact: Racheal Walden Mobile Relation: Child Preferred language: Burmese Plastic Production Machine Setter needed? No Past Surgical History: Past Surgical History: Procedure Laterality Date CHOLECYSTECTOMY 2011 CYSTOSCOPY Left 05/28/2022 CYSTOSCOPY, URETERAL STENT INSERTION, URETHRAL DILATION performed by Kevin Myles MD at [facility] OR HAND SURGERY Right 12/2021 Immunization History: Immunization History Administered Date(s) Administered COVID-19, J&J, (age 18y+), IM, 0.5 mL 09/04/2020 Active Problems: Patient Active Problem List Diagnosis Code DAISY (acute kidney injury) ([facility]) N17.9 ARF (acute renal failure) ([facility]) N17.9 Chronic kidney disease N18.9 Type 2 diabetes mellitus with stage 3a chronic kidney disease (HCC) E11.22, N18.31 Hyperlipidemia E78.5 Primary hypertension I10 [...] Independent Dressing Independent Toileting Independent Feeding Independent Television Presenter Assisted Med Delivery none Wound Care Documentation [...] only, NOT a DME order): walker and spooling operator, grab bars Other Treatments: none Patient's personal belongings (please select all that are sent with patient): Isma ARIZA SIGNATURE: CASE MANAGEMENT/SOCIAL WORK SECTION Inpatient Status Date: Readmission Risk Assessment Score: Readmission Risk Risk of Unplanned Readmission: 15 Discharging to Facility/ Agency Dialysis Facility (if applicable) Name: Address: Dialysis Schedule: Phone: Fax: Real Estate Financial Analyst/Litigation Secretary signature: {Esignature:[id number]} PHYSICIAN SECTION Prognosis: {Prognosis:8846654554} Condition at Discharge: { Patient Condition:442667654} Rehab Potential (if transferring to Rehab): {Prognosis:9652339218} Recommended Labs or Other Treatments After Discharge: Physician Certification: I certify the above information and transfer of Steven Wadlen is necessary for the continuing treatment of the diagnosis listed and that he requires {Admit to Appropriate Level of Care:72337} for {GREATER/LESS:747360308} 30 days. Update Admission H&P: {CHP DME Changes in HandP:033709780} PHYSICIAN SIGNATURE: {Esignature:888589609} documented in this encounterB[facility] [employer] Work Phone: 1(138) 218-799602-24-2023 History of Present illness Narrative* Belgica Liriano RN - 06/04/2022 8:11 PM EST PT discharged to [facility] via transport with all of his belongings. Discharge instructions completed and report was called to [facility] by day shift nurse. * Rakesh Knutson RN - 06/04/2022 7:18 PM EST Report called to [facility]. All questions were answered at this time. * Rosales Singh MD - 06/04/2022 3:00 PM EST Images from the original note were not included. [facility] Office: [phone] Chris Osman DO, Terrence Johns DO, Stefani Augustin DO, Jaspreet Mosley DO, Surekha Batista MD, Adrienne Means MD, Rosales Singh MD, Caitlyn Benz MD, Abdoul Camargo MD, Cathy Farooq MD, Chepe Cordova DO, Betty Hess MD, Deja Guevara DO, April Girard MD, Arvin Maya MD, Cody Osman DO, Shima Watson MD, Raphael Connor MD, Jerome Simon DO, Yoselyn Thakkar MD, Codi Self MD, Gilda Sousa MD, Vikki Adorno MD, Jarocho Real DO, Krishan Vogt MD, Radha William MD, Shaunna Freitas, LINEN GRADER, Prabha Hauser LINEN GRADER, Shirlene Dacosta, LINEN GRADER, Favian Ji, [facility], Yesenia Espino, [facility] [facility], Ema Mason, LINEN GRADER, Calista Mendez, LINEN GRADER, Gunjan Ruiz, LINEN GRADER, Sharon Barry, [facility], Sri Weiner, [facility], THANH Sosa-C, Carleen Paiz, [facility], Catie Cheema, [facility], Chelsea Kulkarni, [facility] Daily Progress Note Admit Date: 05/28/2022 Bed/Room No. Admitting Physician : Rosales Singh MD Code Status :Full Code Hospital Day: LOS: 7 days Chief Complaint: Tremors Kidney failure Kidney stones Principal Problem: DAISY (acute kidney injury) ([facility]) Active Problems: ARF (acute renal failure) ([facility]) Chronic kidney disease Type 2 diabetes mellitus with stage 3a chronic kidney disease ([facility]) Hyperlipidemia Primary hypertension Urinary tract obstruction by [...] for treatment of DAISY (acute kidney injury) ([facility]). 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) Neuropathy SHADE (obstructive sleep apnea) 2002 Peptic [...] No results for input(s): PROT, LABALBU, LABA1C, F8LSNKL, O6XCUCE, FT4, TSH, AST, ALT, LDH, GGT, ALKPHOS, BILITOT, BILIDIR, AMMONIA, AMYLASE, LIPASE, LACTATE, CHOL, HDL, LDLCHOLESTEROL, CHOLHDLRATIO, TRIG, VLDL, BNP, TROPONINI, CKTOTAL, CKMB, CKMBINDEX, RF, AMY in the last 72 hours. Specific [place], [place] Date Value Ref Range Status 05/28/2022 [...] daughter ar bed side Plan discussed with canine service teacher (Please note that portions of this note [...] Remeron. Estimated Daily Nutrient Needs: Energy (kcal): 4031-1414 kcals/day Weight Used for Energy Requirements: Current Protein (g): 110-140 gm pro/day Weight Used for Protein Requirements: [place] Fluid (ml/day): per MD Method Used for [...] this time Trina Rueda RD, JOSE Contact: [phone] * Kevin Cunningham RCP - 06/03/2022 8:32 [...] 06/03/2022 3:09 PM EST Physical Therapy Facility/Department: [facility] CAR 2- STEPDOWN Physical Therapy Daily [...] from the original note were not included. [facility] Office: [phone] Chris Osman DO, Terrence Johns DO, Stefani Augustin DO, Jaspreet Mosley DO, Surekha Batista MD, Adrienne Means MD, Rosales Singh MD, Caitlyn Benz MD, Abdoul Camargo MD, Cathy Farooq MD, Chepe CordovaDO, Betty Hess MD, Deja Guevara DO, April Girard MD, Arvin Maya MD, Cody Osman DO, Shima Watson MD, Raphael Connor MD, Jerome Simon DO, Yoselyn Thakkar MD, Codi Self MD, Gilda Sousa MD, Vikki Adorno MD, Jarocho Real DO, Krishan Vogt MD, Radha William MD, Shaunna Freitas, LINEN GRADER, Prabha Hauser, LINEN GRADER, Shirlene Dacosta, LINEN GRADER, Favian Ji, LINEN GRADER, Yesenia Espino, [facility], Ema Mason, LINEN GRADER, Calista Mendez, LINEN GRADER, Gunjan Ruiz, LINEN GRADER, Sharon Barry, LINEN GRADER, Sri Weiner, LINEN GRADER, THANH Sosa-C, Carleen Paiz, [facility], Catie Cheema, LINEN GRADER, Chelsea Kulkarni, LINEN GRADER [facility] Daily Progress Note Admit Date: 05/28/2022 Bed/Room [...] for treatment of DAISY (acute kidney injury) ([facility]). 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) Neuropathy SHADE (obstructive sleep apnea) 2002 Peptic [...] output 06/01 1901 - 06/03 0700 In: 2010 [P.O.:2000; I.V.:10] Out: 2500 [Urine:2500] Physical Exam: [...] No results for input(s): PROT, LABALBU, LABA1C, Y7ATWKB, X7EHSQI, FT4, TSH, AST, ALT, LDH, GGT, ALKPHOS, BILITOT, BILIDIR, AMMONIA, AMYLASE, LIPASE, LACTATE, CHOL, HDL, LDLCHOLESTEROL, CHOLHDLRATIO, TRIG, VLDL, BNP, TROPONINI, CKTOTAL, CKMB, CKMBINDEX, RF, AMY in the last 72 hours. Specific [place], [place] Date Value Ref Range Status 05/28/2022 [...] daughter ar bed side Plan discussed with canine service teacher (Please note that portions of this note [...] 06/02/2022 3:06 PM EST Physical Therapy Facility/Department: [facility] CAR 2- STEPDOWN Physical Therapy Daily [...] from the original note were not included. [facility] Office: [phone] Chris Osman DO, Terrence Johns DO, Stefani Augustin DO, Jaspreet Mosley DO, Surekha Batista MD, Adrienne Means MD, Rosales Singh MD, Caitlyn Benz MD, Abdoul Camargo MD, Cathy Farooq MD, Chepe CordovaDO, Betty Hess MD, Deja Guevara DO, April Girard MD, Arvin Maya MD, Cody Osman DO, Shima Watson MD, Raphael Connor MD, Jerome Simon DO, Yoselyn Thakkar MD, Codi Self MD, Gilda Sousa MD, Vikki Adorno MD, Jarocho Real DO, Krishan Vogt MD, Radha William MD, Shaunna Freitas, KARINA, Prabha Hauser, LINEN GRADER, Shirlene Dacosta, LINEN GRADER, Favian Ji, LINEN GRADER, Yesenia Espino, [facility], Ema Mason, LINEN GRADER, Calista Mendez, LINEN GRADER, Gunjan Ruiz, [facility], Sharon Barry, [facility], Sri Weiner, [facility], MEGAN SosaC, Carleen Paiz, [facility], Catie Cheema, [facility], Chelsea Kulkarni, [facility] Daily Progress Note Admit Date: 05/28/2022 [...] kidney injury) (HCC). Patient was transferred from [facility] to [facility] where he presented with generalizedtremors , [...] 3.6* 4.0 CL 105 108* 108* CO2 22 20 GLUCOSE 183* 74 181* BUN 54* 40* 31* CREATININE 3.07* 2.52* 2.22* CALCIUM 8.4* 8.6 8.6 No results for input(s): PROT, LABALBU, LABA1C, D7BXCYD, O1QATZY, FT4, TSH, AST, ALT, LDH, GGT, ALKPHOS, BILITOT, BILIDIR, AMMONIA, AMYLASE, LIPASE, LACTATE, CHOL, HDL, LDLCHOLESTEROL, CHOLHDLRATIO, TRIG, VLDL, BNP, TROPONINI, CKTOTAL, CKMB, CKMBINDEX, RF, AMY in the last 72 hours. Specific [place], [place] Date Value Ref Range Status 05/28/2022 [...] daughter ar bed side Plan discussed with canine service teacher (Please note that portions of this note [...] is a 62 y.o. male admitted to [facility] on 05/28/2022. 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 He was taken to [place] ER was found to have a creatinine of 8. Imaging study showed atrophic right kidney and left hydronephrosis with left ureteral stone. He was then transferred to [facility]. Lab work initially showed a potassium [...] times daily vitamin D (ERGOCALCIFEROL) 1.25 MG (29770 UT) CAPS capsule, Take 50,000 Units by [...] 4. Patient should be seen in the [facility] clinic with Dr. Triplett within the next 3 to 4 weeks. Clinic number is [phone] 5. Expect continued renal recovery 6. If [...] MD Nephrology Attending Physician [facility] 05/31/2022 * Amanda Aguilera, PROCESS CONSULTANT - 06/01/2022 4:22 PM EST Physical Therapy Facility/Department: [facility] CAR 2- STEPDOWN Physical Therapy Daily [...] 29 Timed Code Treatment Minutes: 25 Minutes Amadna Aguilera PTA * Rosales Singh MD - 06/01/2022 4:18 PM EST Images from the original note were not included. [facility] Office: [phone] Chris Osman DO, Terrence Johns DO, Stefani Augustin DO, Jaspreet Mosley DO, Surekha Batista MD, Adrienne Means MD, Rosales Singh MD, Caitlyn Benz MD, Abdoul Camargo MD, Cathy Farooq MD, Chepe Cordova DO, Betty Hess MD, Deja Guevara DO, April Girard MD, Arvin Maya MD, Cody Osman DO, Shima Watson MD, Raphael Connor MD, Jerome Simon DO, Yoselyn Thakkar MD, Codi Self MD, Gilda Sousa MD, Vikki Adorno MD, Jarocho Real DO, Krishan Vogt MD, Radha William MD, Shaunna Freitas CNP, Prbaha Hauser CNP, Shirlene Dacosta CNP, Favian Ji CNP, Yesenia Espino DNP, Ema Mason, KARINA, Calista Mendez, KARINA, Gunjan Ruiz CNP, Sharon Barry CNP, Sri Weiner CNP, THANH Sosa-Seda, Carleen Paiz, SARA, Catie Cheema, LINEN GRADER, Chelsea Kulkarni, KARINA [facility] Daily Progress Note Admit Date: 05/28/2022 Bed/Room No. Admitting Physician : Rosales Singh MD Code Status :Full Code Hospital Day: LOS: 4 days Chief Complaint: Tremors Kidney failure Kidney stones Principal Problem: DAISY (acute kidney injury) ([facility]) Active Problems: ARF (acute renal failure) (HCC) [...] for treatment of DAISY (acute kidney injury) ([facility]). Patient was transferred from [facility] to [facility] where he presented with generalizedtremors , [...] 93 % -- Intake / output 05/30 1901 - 06/01 0700 In: 3121.4 [P.O.:1200; I.V.:1771.6] [...] ALKPHOS 97 -- BILITOT 0.3 -- Specific [place], [place] Date Value Ref Range Status 05/28/2022 [...] daughter ar bed side Plan discussed with canine service teacher (Please note that portions of this note were completed with a voice recognition program. Efforts were made to edit the dictations but occasionally words are mis-transcribed.) Rosales Singh MD 06/01/2022 * Desean Kitchen RN - 06/01/2022 1:00 AM EST Patient was hypoglycemic treated with the bolus doses of 10%Dextrose ,rechecked blood sugar and wasstill hypoglycemic notified online affiliate marketing manager KNOTTER HAND Carleen Paiz,as per the order,10%Dextrose 100ml/hr started. [...] times daily vitamin D (ERGOCALCIFEROL) 1.25 MG (24823 UT) CAPS capsule, Take 50,000 Units by [...] 4. Patient should be seen in the [facility] with Dr. Triplett within the next 3 to 4 weeks. Clinic number is [phone] 5. Expect continued renal recovery 6. If internal medicine could order weekly basic metabolic panel for the next 4 weeks with results to Dr. Triplett, nephrology would appreciate it Meseret Ballard MD Nephrology Attending Physician [facility] 05/31/2022 * Kevin Myles MD - 05/31/2022 7:51 AM EST Images from the original note were not included. Kevin Myles MD [facility] Urology Progress Note Subjective: Diet: No acute [...] from the original note were not included. [facility] Office: [phone] Chris Osman DO, Terrence Johns DO, Stefani Augustin DO, Jaspreet Mosley DO, Surekha Batista MD, Adrienne Means MD, Rosales Singh MD, Caitlyn Benz MD, Abdoul Camargo MD, Cathy Farooq MD, Chepe Cordova DO, Betty Hess MD, Deja Guevara DO, April Girard MD, Arvin Maya MD, Cody Osman DO, Shima Watson MD, Raphael Connor MD, Jerome Simon DO, Yoselyn Thakkar MD, Codi Self MD, Gilda Sousa MD, Vikki Adorno MD, Jarocho Real DO, Krishan Vogt MD, Radha William MD, Shaunna Freitas, LINEN GRADER, Prabha Hauser, LINEN GRADER, Shirlene Dacosta, LINEN GRADER, Favian Ji, LINEN GRADER, Yesenia Espino, [facility], Ema Mason, LINEN GRADER, Calista Mendez, LINEN GRADER, Gunjan Ruiz, LINEN GRADER, Sharon Barry, LINEN GRADER, Sri Weiner, LINEN GRADER, Gillian Valles PA-C, Carleen Paiz, [facility], Catie Cheema, LINEN GRADER, Chelsea Kulkarni, [facility] Daily Progress Note Admit Date: 05/28/2022 Bed/Room No. Admitting Physician : Rosales Singh MD Code Status :Full Code Hospital Day: LOS: 3 days Chief Complaint: Tremors Kidney failure Kidney stones Principal Problem: DAISY (acute kidney injury) ([facility]) Active Problems: ARF (acute renal failure) (HCC) [...] for treatment of DAISY (acute kidney injury) ([facility]). Patient was transferred from [facility] to [facility] where he presented with generalizedtremors , [...] 05/28/22 1655 05/28/22 2024 05/29/22 0701 05/29/22 20405/30/22 0308 05/30/22 0945 05/30/22 1501 05/31/22 0552 [...] interval not displayed. Recent Labs 05/28/22 1655 05/28/22204405/29/22 0701 05/30/22 0308 05/30/22 0945 PROT 7.2 6.7 7.1 6.6 -- LABALBU 2.8* -- 3.1* 3.0* -- LABA1C -- -- -- -- 7.2* AST 44* -- 32 24 -- ALT 23 -- 21 19 -- ALKPHOS 107 -- 104 97 -- BILITOT 0.5 -- 0.4 0.3 -- Specific [place], [place] Date Value Ref Range Status 05/28/2022 [...] daughter ar bed side Plan discussed with canine service teacher (Please note that portions of this note were completed with a voice recognition program. Efforts were made to edit the dictations but occasionally words are mis-transcribed.) Rosales Singh MD 05/31/2022 * Lety Segura - 05/30/2022 12:34 PM EST SPIRITUAL CARE DEPARTMENT - [facility] PROGRESS NOTE Shift date: 05/30/2022 Shift day: Tuesday Shift # 1 Room # Name: Steven Walden Referral: Routine Visit Admit Date & Time: 05/28/2022 4:25 PM Assessment: Steven Walden is a 62 y.o. male in the hospital. Upon entering the room filing writer observes the patient lying in bed in a dark room, appearing to be falling asleep. A visitor was bedside, reclined in a chair. The patient explained the day started hectic and they desired to rest and calm. Gas Generator Operator offered to return later or the next day. Intervention: Rn Pool introduced self and title as professor of legal studies Rn Pool offered space for the patient to express feelings, needs, and concerns and provided a ministry presence. Outcome: Expressed gratitude. Plan: Chaplains will remain available to offer spiritual and emotional support as needed. 05/30/22 1233 Encounter Summary Service Provided For: Patient Referral/Consult From: Rounding Support System Family members Last Encounter 05/30/22 Complexity of Encounter Low Begin Time 1032 End Time 1035 Total Time Calculated 3 min Assessment/Intervention/Outcome Assessment Calm;Coping;Other (Comment) (Tired) Intervention Sustaining Presence/Ministry of presence Outcome Expressed Gratitude . Spiritual Care Department [facility] [phone] * Meseret Ballard MD - 05/30/2022 9:07 [...] times daily vitamin D (ERGOCALCIFEROL) 1.25 MG (07859 UT) CAPS capsule, Take 50,000 Units by [...] 206 MPV 9.8 10.2 BMP: Recent Labs 05/28/22165405/28/22202305/29/2270005/29/22204505/30/22 0308 NA 131* -- 139 140 143 [...] 05/29/22 0701 PHOS 5.6* Magnesium: Recent Labs 05/28/22165405/29/2270005/30/22 0308 MG 1.9 1.8 1.9 Albumin: Recent Labs 05/28/22165405/29/2270005/30/22 0308 LABALBU 2.8* 3.1* 3.0* SPEP: Lab [...] to follow along with you. Elise Beach LINEN GRADER Attending Physician Statement I have discussed the care of Steven Walden, including pertinent history and exam findings with the LINEN GRADER. I have reviewed the [place] elements of all parts of the encounter with the LINEN GRADER. I have seen and examined the patient. I agree with the assessment and plan and status of the problem list as documented. Meseret Ballard MD Nephrology Attending Physician [facility] 05/30/2022 * Yesenia Espino, REVERBERATORY FURNACE SUPERVISOR - KNOTTER HAND - 05/30/2022 8:23 AM EST Images from the original note were not included. [facility] Office: [phone] Chris Osman DO, Terrence Johns DO, Stefani Augustin DO, Jaspreet Mosley DO, Surekha Batista MD, Adrienne Means MD, Rosales Singh MD, Caitlyn Benz MD, Abdoul Camargo MD, Cathy Farooq MD, Chepe Cordova DO, Betty Hess MD, Deja Guevara DO, April Girard MD, Arvin Maya MD, Cody Osman DO, Shima Watson MD, Raphael Connor MD, Jerome Simon, DO, Yoselyn Thakkar MD, Codi Self MD, Gilda Sousa MD, Vikki Adorno MD, Jarocho Real DO, Krishan Vogt MD, Radha William MD, Shaunna Freitas, LINEN GRADER, Prabha Hauser, LINEN GRADER, Shirlene Dacosta, LINEN GRADER, Favian Ji, LINEN GRADER, Yesenia Espino, TEJINDER, Ema Mason, LINEN GRADER, Calista Mendez, LINEN GRADER, Gunjan Ruiz, LINEN GRADER, Sharon Barry, LINEN GRADER, Sri Weiner, LINEN GRADER, Gillian Valles PA-C, Carleen Paiz, [facility], Catie Cheema, LINEN GRADER, Chelsea Kulkarni, [facility] IN-PATIENT SERVICE [facility] Progress Note 05/30/2022 8:23 AM Name: Steven Walden Acct: [id number] Room: IP Day: 2 Admit Date: 05/28/2022 [...] a 62-year-old male that is transferred to [facility] from [facility] for obstructing kidney stone with acute kidney [...] Net -815.57 ml Labs: Hematology: Recent Labs 05/28/22 16505/28/22165805/30/22 0308 WBC -- 7.2 8.3 RBC -- 4.73 4.32 HGB -- 14.6 13.2 HCT -- 48.9 41.1 MCV -- 103.4* 95.1 MCH -- 30.9 30.6 MCHC -- 29.9 32.1 RDW -- 14.4 14.2 PLT -- 118* 206 MPV -- 9.8 10.2 INR 1.0 -- -- Chemistry: Recent Labs 05/28/22 16505/28/22202305/29/22 0701 05/29/22204505/30/22 0308 NA 131* -- 139 [...] displayed. Recent Labs 05/28/22 1655 05/28/22 1904 05/28/22204305/28/22204405/29/22 0701 05/29/22 0810 05/29/22 1106 05/29/22 1621 [...] results found for: POCPH, PHART, PH, POCPCO2, YNR5OBY, PCO2, POCPO2, PO2ART, PO2, POCHCO3, YXT5TXT, HCO3, NBEA, PBEA, BEART, BE, THGBART, THB, YQC7XIL, IPKH0YYN, H5UFTOUJ, O2SAT, FIO2 No results found for: SPECIAL [...] POA * (Principal) DAISY (acute kidney injury) ([facility]) 05/28/2022 Yes ARF (acute renal failure) ([facility]) 05/28/2022 Yes Chronic kidney disease 05/28/2022 Yes Type 2 diabetes mellitus with stage 3a chronic kidney disease ([facility]) 05/28/2022 Yes Hyperlipidemia 05/28/2022 Yes Primary hypertension [...] note were not included. Kevin Myles MD [facility] Urology Progress Note Subjective: Diet: No acute [...] PLT 118* 206 Recent Labs 05/28/22 1655 05/28/22202305/29/22 0701 05/29/226 05/30/22 0308 NA 131* -- 139 140 [...] 05/29/2022 12:39 PM EST Physical Therapy Facility/Department: [facility] 2- STEPDOWN Physical Therapy Initial Assessment Name: Steven Walden : 1960 Date of Service: 05/29/2022 This is a 62-year-old male that is transferred to [facility] from [facility] for obstructing kidney stone with acute kidney [...] Ambulation Assistance: Independent Transfer Assistance: Independent Active Director Engineering: Yes 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 Carballo remains Work Up: Immunifixation pending. [place] Lambda ratio pending. Complement C3 - 185 [...] Diet/TF Electronically signed by Aguila Ramirez CNP, REVERBERATORY FURNACE SUPERVISOR - LINEN GRADER on 05/29/2022 at 8:51 AM [facility]. Attending Physician Statement I have discussed the care of Steven Walden, including pertinent history and exam findings with the LINEN GRADER. I have reviewed the [place] elements of all parts of the encounter with the LINEN GRADER. I have seen and examined the patient. I agree with the assessment and plan and status of the problem list as documented and have edited the documentation as appropriate. Addiitionally I anticipate further improvement in renal function and electrolyte and acid-base status. Meseret Ballard MD Nephrology Attending Physician [facility] 05/29/2022 * Kevin Myles MD - 05/29/2022 8:47 AM EST Images from the original note were not included. Kevin Myles MD [facility] Urology Progress Note Subjective: Diet: No acute [...] from the original note were not included. [facility] Office: [phone] Chris Osman DO, Terrence Johns DO, Stefani Augustin DO, Jaspreet Mosley DO, Surekha Batista MD, Adrienne Means MD, Rosales Singh MD, Caitlyn Benz MD, Abdoul Camargo MD, Cathy Farooq MD, Chepe Cordova DO, Betty Hess MD, Deja Guevara DO, April Girard MD, Arvin Maya MD, Cody Osman DO, Shima Watson MD, Raphael Connor MD, Jerome Simon DO, Yoselyn Thakkar MD, Codi Self MD, Gilda Sousa MD, Vikki Adorno MD, Jarocho Real DO, Krishan Vogt MD, Radha William MD, Shaunna Freitas, LINEN GRADER, Prabha Hauser, LINEN GRADER, Shirlene Dacosta, LINEN GRADER, Favian Ji, LINEN GRADER, Yesenia Espino, [facility], Ema Mason, LINEN GRADER, Calista Mendez, LINEN GRADER, Gunjan Ruiz, LINEN GRADER, Sharon Barry, LINEN GRADER, Sri Weiner, LINEN GRADER, Gillian Valles PA-C, Carleen Paiz, [facility], Catie Cheema, [facility], Chelsea Kulkarni, [facility] IN-PATIENT SERVICE [facility] Progress Note 05/29/2022 7:47 AM Name: Steven Walden Acct: [id number] Room: Day: 1 Admit Date: 05/28/2022 4:25 [...] a 62-year-old male that is transferred to [facility] from [facility] for obstructing kidney stone with acute kidney [...] -- PROBNP 2,234* -- Recent Labs 05/28/22164805/28/22165405/28/22 19005/28/22204305/28/222044 PROT -- 7.2 -- -- 6.7 LABALBU -- 2.8* -- -- -- AST -- 44* -- -- -- ALT -- 23 -- -- -- ALKPHOS -- 107 -- -- -- BILITOT -- 0.5 -- -- -- URICACID -- -- -- -- 7.8* POCGLU 126* -- 160* 187* -- ABG:No results found for: POCPH, PHART, PH, POCPCO2, DNC6PRN, PCO2, POCPO2, PO2ART, PO2, POCHCO3, URS8YMU, HCO3, NBEA, PBEA, BEART, BE, THGBART, THB, LTT2EIM, HLBP2PDS, V8YNRTBM, O2SAT, FIO2 No results found for: SPECIAL [...] POA * (Principal) DAISY (acute kidney injury) ([facility]) 05/28/2022 Yes ARF (acute renal failure) ([facility]) 05/28/2022 Yes Chronic kidney disease 05/28/2022 Yes Type 2 diabetes mellitus with stage 3a chronic kidney disease ([facility]) 05/28/2022 Yes Hyperlipidemia 05/28/2022 Yes Primary hypertension [...] 05/28/2022 5:08 PM EST Pt arrived from [facility] for obstructing kidney stone. Pt reports he went to the hospital for a fall and he was taken to the [facility] ER and found to have a BS of 46 per pt. [facility] [employer] Work Phone: [phone] 341-582002-24-2023 Hospital course Narrative* Rosales Singh MD - 06/04/2022 3:47 PM EST Images from the original note were not included. [facility] Office: [phone] Chris Osman DO, Terrence Johns DO, Stefani Augustin DO, Jaspreet Mosley DO, Surekha Batista MD, Adrienne Means MD, Rosales Signh MD, Caitlyn Benz MD, Kt Gay MD, Vikki Adorno MD, Abdoul Camargo MD, Cathy Farooq MD, Zhanna Portillo MD, Jarocho Real DO, Mark Cade MD, Julianna Wallace MD, Chepe Cordova DO, Betty Hess MD, Deja Guevara DO, Isiah Chavez MD, Orquidea Schneider MD, Shaunna Freitas LINEN GRADER, Sri Weiner LINEN GRADER, Chelsea Kulkarni LINEN GRADER, Carleen Paiz [employer], Crispin Bey LINEN GRADER, Edy LINEN GRADER, Catie Bryant LINEN GRADER, Shirlene Cha LINEN GRADER, Favian Ji LINEN GRADER, Gillian Valles PA-C, Yesenia Espino LINEN GRADER, Amanda Pina LINEN GRADER, Shana Ashford LINEN GRADER, Ema Mason LINEN GRADER, Karuna Moreira LINEN GRADER, Calista Mendez LINEN GRADER [facility] Discharge Summary Patient ID: Steven Walden : 1960 ACCOUNT: [id number] Patient Location : Patient's PCP: Darion Randle MD Admit Date: 05/28/2022 Discharge Date: 06/04/22 Length of Stay: 7 Code Status: Full Code Admitting Physician: No admitting provider for patient encounter. Discharge Physician: Rosales Singh MD Active Discharge Diagnosis : Primary Problem DAISY (acute kidney injury) ([facility]) Hospital Problems Active Hospital Problems Diagnosis Date [...] the management of DAISY (acute kidney injury) ([facility]) , presented to ER with tremors , renal failure Patient was transferred from [facility] to [facility] where he presented with generalizedtremors , [...] hold. KVO. 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 Type 2 diabetes mellitus - insulin dependent [...] discharge. Discharge plan: Disposition: Acute rehab at [place]. Physician Follow Up: Kevin Myles MD [address] [facility], [address] [facility] [address] Follow up in 1 week(s) follow up for definitive stone treatment Mane Trpilett MD [address] [facility] [facility] [id number] Schedule an appointment as soon as possible [...] albuterol sulfate HFA vitamin D 1.25 MG (61683 UT) Caps capsule Commonly known as: ERGOCALCIFEROL [...] Your Medications These medications were sent to [facility] [address] [place] [address] - [phone] - F [phone] [place] [id number] brexpiprazole 2 MG Tabs tablet propranolol 20 [...] this [facility]'s care. [facility]: [facility] + Plan note Future Appointments Appointment Date:05/01/2024 09:00:00 AM Scheduled Provider: Location:.[facility] Appointment Type:NM Kidney Imaging w/ Flow w/ Pharm (FT) Appointment Date:05/01/2024 10:00:00 AM Scheduled Provider: Location:.[facility]AN Appointment Type:CT Abdomen/Pelvis Combo (FT) Appointment Date:05/03/2024 08:30:00 AM Scheduled Provider: Location:[facility] Appointment Type:Surgical PAT FT Appointment Date:05/15/2024 08:00:00 AM Scheduled Provider: Location:[facility] Appointment Type:Surgery FT Future Scheduled Tests Radiology* CT Abdomen/Pelvis w/o Contrast 05/01/24 * NM Kidney Imaging w/ Flow w/ Pharm 05/01/[address] [facility] evaluation + Plan note Future Appointments Appointment Date:05/03/2024 08:30:00 AM Scheduled Provider: Location:[facility] Appointment Type:Surgical PAT FT Appointment Date:05/15/2024 08:00:00 AM Scheduled Provider: Location:[facility] Appointment Type:Surgery FT [facility] evaluation + Plan note Future Appointments Appointment Date:05/15/2024 08:00:00 AM Scheduled Provider: Location:[facility] Appointment Type:Surgery FT Diagnostic Tests Pending * Urine Culture 05/03/24 [facility] evaluation + Plan note Future Appointments Appointment Date:08/01/2024 08:00:00 AM Scheduled Provider:Sun Quach MD Location:[facility] Appointment Type:URO Office Visit [facility] evaluation note* Diagnosis DAISY (acute kidney injury) (HCC)- Primary Acute kidney failure, unspecified Left ureteral stone Acute renal failure with acute cortical necrosis (HCC) Acute kidney failure with lesion of renal cortical necrosis ARF (acute renal failure) (HCC) Acute kidney failure, unspecified Chronic kidney disease Chronic kidney disease, unspecified Type 2 diabetes mellitus with stage 3a chronic kidney disease ([facility]) Hyperlipidemia Other and unspecified hyperlipidemia Primary hypertension Unspecified essential hypertension Urinary tract obstruction by kidney stone Calculus of kidney Hydronephrosis of left kidney Hydronephrosis Atrophy of right kidney Renal sclerosis, unspecified Left ureteral stone Debility Debility, unspecified BRITTANY (generalized anxiety disorder) Generalized anxiety disorder Ureteral stone Calculus of ureter documented in this encounter [employer] Phone: evaluation note* Diagnosis DAISY (acute kidney injury) ([facility])- Primary Acute kidney failure, unspecified Acute kidney injury superimposed on CKD ([facility]) Pyelonephritis Pyelonephritis, unspecified Left ureteral stone Chronic kidney disease Chronic kidney disease, unspecified Type 2 diabetes mellitus with stage 3a chronic kidney disease (HCC) Hyperlipidemia Other and unspecified hyperlipidemia Primary hypertension Unspecified essential hypertension BRITTANY (generalized anxiety disorder) Generalized anxiety disorder Major depressive disorder, recurrent, moderate ([facility]) Major depressive disorder, recurrent episode, moderate Acute kidney injury superimposed on CKD ([facility]) Bandemia Pyelonephritis Pyelonephritis, unspecified Emphysematous cystitis Other specified types of cystitis Hyponatremia Hyposmolality and/or hyponatremia Dependence on renal dialysis ([facility]) Renal dialysis status Metabolic acidosis Acidosis documented in this encounter [employer] Phone: evalfxolim note* Diagnosis Debility- Primary Debility, unspecified Debility Debility, unspecified documented in this encounter [employer] Phone: [email or web address] noteNo InformationNort [employer] Other Evaluation noteNo assessment information available [facility] Work Phone: Evaluation note* Diagnosis Onset Date Resolution Status Acute anxiety acute [facility] Work Phone: Evaluation note* Diagnosis Onset Date Resolution Status Acute anxiety acute Major depression acute [facility] Work Phone: Evaluation note* Diagnosis Major depressive disorder, single episode, moderate ([facility]) (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 [facility] Work Phone: Evaluation note* Diagnosis DAISY (acute kidney injury) (CMS/HCC)- Primary Diabetic nephropathy associated with type 2 diabetes mellitus (HCC) (CMS/HCC) Screening PSA (prostate specific antigen) Special screening for malignant neoplasm of prostate Well adult health check Unspecified general medical examination Morbid obesity due to excess calories (CMS/HCC) Major depressive disorder, recurrent, moderate (CMS/HCC) Major depressive disorder, recurrent episode, moderate Panic attack (CMS/HCC)- Primary Panic disorder without agoraphobia Major depressive disorder, single episode, moderate (HCC) (CMS/HCC) Major depressive disorder, single episode, moderate Acute cystitis without hematuria Confusion Unspecified psychosis Severe recurrent major depression without psychotic features (HCC) (CMS/HCC) Major depressive disorder, recurrent episode, severe, without mention of psychotic behavior Major depressive disorder, single episode, moderate (HCC) (CMS/HCC) Major depressive disorder, single episode, moderate BRITTANY (generalized anxiety disorder) (CMS/HCC) Generalized anxiety disorder documented in this encounter [facility]* Diagnosis DAISY (acute kidney injury) (CMS/HCC)- Primary Diabetic nephropathy associated with type 2 diabetes mellitus (HCC) (CMS/HCC) Screening PSA (prostate specific antigen) Special screening for malignant neoplasm of prostate Well adult health check Unspecified general medical examination Morbid obesity due to excess calories (CMS/HCC) Major depressive disorder, recurrent, moderate (CMS/HCC) Major depressive disorder, recurrent episode, moderate Panic attack (CMS/HCC)- Primary Panic disorder without agoraphobia Major depressive disorder, single episode, moderate (HCC) (CMS/HCC) Major depressive disorder, single episode, moderate Acute cystitis without hematuria Confusion Unspecified psychosis Tardive dyskinesia- Primary Subacute dyskinesia due to drugs documented in this encounter [facility]* Diagnosis Major depressive disorder, recurrent, moderate (HCC) (CMS/HCC) Major depressive disorder, recurrent episode, moderate Severe recurrent major depression without psychotic features (HCC) (CMS/HCC) Major depressive disorder, recurrent episode, severe, without mention of psychotic behavior documented in this encounter [facility]* Diagnosis Diabetic neuropathy with neurologic complication ([facility])- Primary Type II or unspecified type diabetes mellitus with neurological manifestations, not stated as uncontrolled Primary hypertension ([facility]) Unspecified essential hypertension Hyperlipemia, mixed ([facility]) Mixed hyperlipidemia Insulin long-term use ([facility]) Encounter for long-term (current) use of insulin Vitamin D deficiency Encounter for dietary consultation Class 2 severe obesity due to excess calories with serious comorbidity and body mass index (BMI) of 38.0 to 38.9 in adult ([facility]) High risk medication use documented in this encounter [facility] HealthcareEvaluation note* Diagnosis DAISY (acute kidney injury) ([facility])- Primary Diabetic nephropathy associated with type 2 diabetes mellitus (HCC) ([facility]) Screening PSA (prostate specific antigen) Special screening for malignant neoplasm of prostate Well adult health check Unspecified general medical examination Morbid obesity due to excess calories ([facility]) Major depressive disorder, recurrent, moderate ([facility]) Major depressive disorder, recurrent episode, moderate Panic attack ([facility])- Primary Panic disorder without agoraphobia Major depressive disorder, single episode, moderate (HCC) ([facility]) Major depressive disorder, single episode, moderate Acute cystitis without hematuria Confusion Unspecified psychosis BRITTANY (generalized anxiety disorder) ([facility]) Generalized anxiety disorder Severe recurrent major depression without psychotic features ([facility]) ([facility]) Major depressive disorder, recurrent episode, severe, without mention of psychotic behavior documented in this encounter [facility] HealthcareEvaluation note* Diagnosis DAISY (acute kidney injury) ([facility])- Primary Diabetic nephropathy associated with type 2 diabetes mellitus (HCC) ([facility]) Screening PSA (prostate specific antigen) Special screening for malignant neoplasm of prostate Well adult health check Unspecified general medical examination Morbid obesity due to excess calories ([facility]) Major depressive disorder, recurrent, moderate ([facility]) Major depressive disorder, recurrent episode, moderate Panic attack ([facility])- Primary Panic disorder without agoraphobia Major depressive disorder, single episode, moderate (HCC) ([facility]) Major depressive disorder, single episode, moderate Acute cystitis without hematuria Confusion Unspecified psychosis Primary hypertension ([facility])- Primary Unspecified essential hypertension Need for vaccination Need for prophylactic vaccination and inoculation against unspecified single disease Idiopathic chronic gout without tophus, unspecified site Duodenal ulcer Type 2 diabetes mellitus with diabetic chronic kidney disease (CMS/HCC) Chronic kidney disease, stage 4 (severe) (CMS/HCC) Type 2 diabetes mellitus with hyperglycemia (CMS/HCC) Type 2 diabetes mellitus with diabetic peripheral angiopathy without gangrene (CMS/HCC) Morbid (severe) obesity due to excess calories (CMS/HCC) Pure hyperglyceridemia (CMS/HCC) Pure hyperglyceridemia Body mass index (BMI) 39.0-39.9, adult Type 2 diabetes mellitus with diabetic polyneuropathy (CMS/HCC) [facility] (current) use of insulin (CMS/HCC) Type 2 diabetes mellitus with other specified complication (CMS/HCC) Mixed hyperlipidemia (CMS/HCC) Mixed hyperlipidemia Type 2 diabetes mellitus with diabetic neuropathic arthropathy (CMS/HCC) Major depressive disorder, recurrent severe without psychotic features (HCC) (CMS/HCC) documented in this encounter [facility]* Diagnosis DAISY (acute kidney injury) (CMS/HCC)- Primary Diabetic nephropathy associated with type 2 diabetes mellitus (HCC) (CMS/HCC) Screening PSA (prostate specific antigen) Special screening for malignant neoplasm of prostate Well adult health check Unspecified general medical examination Morbid obesity due to excess calories (CMS/HCC) Major depressive disorder, recurrent, moderate (CMS/HCC) Major depressive disorder, recurrent episode, moderate Panic attack (CMS/HCC)- Primary Panic disorder without agoraphobia Major depressive disorder, single episode, moderate (HCC) (CMS/HCC) Major depressive disorder, single episode, moderate Acute cystitis without hematuria Confusion Unspecified psychosis Panic attack (CMS/HCC) Panic disorder without agoraphobia documented in this encounter [facility]* Diagnosis DAISY (acute kidney injury) (CMS/HCC)- Primary Diabetic nephropathy associated with type 2 diabetes mellitus (HCC) (CMS/HCC) Screening PSA (prostate specific antigen) Special screening for malignant neoplasm of prostate Well adult health check Unspecified general medical examination Morbid obesity due to excess calories (CMS/HCC) Major depressive disorder, recurrent, moderate (CMS/HCC) Major depressive disorder, recurrent episode, moderate Panic attack (CMS/HCC)- Primary Panic disorder without agoraphobia Major depressive disorder, single episode, moderate (HCC) (CMS/HCC) Major depressive disorder, single episode, moderate Acute cystitis without hematuria Confusion Unspecified psychosis Type 2 diabetes mellitus with diabetic neuropathic arthropathy, with long-term current use of insulin ([facility])- Primary Primary hypertension ([facility]) Unspecified essential hypertension Hyperlipemia, mixed ([facility]) Mixed hyperlipidemia Insulin long-term use ([facility]) Encounter for long-term (current) use of insulin Vitamin D deficiency Encounter for dietary consultation High risk medication use Class 3 severe obesity due to excess calories with serious comorbidity and body mass index (BMI) of 40.0 to 44.9 in adult ([facility]) documented in this encounter [facility] HealthcareEvaluation note* Diagnosis DAISY (acute kidney injury) ([facility])- Primary Diabetic nephropathy associated with type 2 diabetes mellitus (HCC) ([facility]) Screening PSA (prostate specific antigen) Special screening for malignant neoplasm of prostate Well adult health check Unspecified general medical examination Morbid obesity due to excess calories ([facility]) Major depressive disorder, recurrent, moderate ([facility]) Major depressive disorder, recurrent episode, moderate Panic attack ([facility])- Primary Panic disorder without agoraphobia Major depressive disorder, single episode, moderate (HCC) ([facility]) Major depressive disorder, single episode, moderate Acute cystitis without hematuria Confusion Unspecified psychosis Panic attack ([facility]) Panic disorder without agoraphobia Severe recurrent major depression without psychotic features (HCC) ([facility]) Major depressive disorder, recurrent episode, severe, without mention of psychotic behavior BRITTANY (generalized anxiety disorder) ([facility]) Generalized anxiety disorder documented in this encounter [facility] HealthcareEvaluation note* Diagnosis Acquired buried penis- Primary Other specified disorder of penis Encounter for screening for diabetes mellitus Screening for diabetes mellitus [facility] Diagnosis DAISY (acute kidney injury) ([facility]/HCC)- Primary Diabetic nephropathy associated with type 2 diabetes mellitus (HCC) ([facility]) Screening PSA (prostate specific antigen) Special screening for malignant neoplasm of prostate Well adult health check Unspecified general medical examination Morbid obesity due to excess calories ([facility]) Major depressive disorder, recurrent, moderate ([facility]/HCC) Major depressive disorder, recurrent episode, moderate Panic attack ([facility]/HCC)- Primary Panic disorder without agoraphobia Major depressive disorder, single episode, moderate (HCC) ([facility]) Major depressive disorder, single episode, moderate Acute cystitis without hematuria Confusion Unspecified psychosis Severe recurrent major depression without psychotic features (HCC) ([facility]) Major depressive disorder, recurrent episode, severe, without mention of psychotic behavior BRITTANY (generalized anxiety disorder) ([facility]) Generalized anxiety disorder [facility] Acquired buried penis- Primary Other specified disorder of penis Erectile dysfunction of organic origin Impotence of organic origin Type 2 diabetes mellitus without complication, with long-term current use of insulin (HCC) Stage 3 chronic kidney disease, unspecified whether stage 3a or 3b CKD ([facility]) Jock itch Dermatophytosis of groin and perianal area Solitary kidney, acquired Acquired absence of kidney Nephrolithiasis Calculus of kidney [facility] Diagnosis Jock itch- Primary Dermatophytosis of groin and perianal area [facility]* Diagnosis Onset Date Resolution Status Admit Date Anemia acute July 10 9:28am Chronic kidney disease, stag e IV (severe) acute July 10, 2024 9:28am Dribbling urine acute July 9:28am Folate deficiency acute July 102024 9:28am Hyperparathyroid bone disease acute July 10, 2024 9:28am Hyperuricemia acute July 10, 2024 9:28am Hypokalemia acute July 10 9:28am Hypomagnesemia acute July 10, 2024 9:28am Hypotension acute July 10 9:28am Metabolic acidosis acute July 10, 2024 9:28am Nephrolithiasis acute July 9:28am Obesity acute July 10 9:28am Type 2 diabetes mellitus wit h diabetic nephropathy acute July 10, 2024 9:28am [facility] Work Phone: Evaluation note* Diagnosis Acquired buried penis- Primary Other specified disorder of penis [facility]* Diagnosis DAISY (acute kidney injury) (CMS/HCC)- Primary Diabetic nephropathy associated with type 2 diabetes mellitus (HCC) (CMS/HCC) Screening PSA (prostate specific antigen) Special screening for malignant neoplasm of prostate Well adult health check Unspecified general medical examination Morbid obesity due to excess calories (CMS/HCC) Major depressive disorder, recurrent, moderate (CMS/HCC) Major depressive disorder, recurrent episode, moderate Panic attack (CMS/HCC)- Primary Panic disorder without agoraphobia Major depressive disorder, single episode, moderate (HCC) ([facility]) Major depressive disorder, single episode, moderate Acute cystitis without hematuria Confusion Unspecified psychosis Type 2 diabetes mellitus with diabetic neuropathic arthropathy, with long-term current use of insulin ([facility])- Primary Primary hypertension ([facility]) Unspecified essential hypertension Hyperlipemia, mixed ([facility]) Mixed hyperlipidemia Insulin long-term use ([facility]) Encounter for long-term (current) use of insulin Vitamin D deficiency Encounter for dietary consultation High risk medication use Class 2 severe obesity due to excess calories with serious comorbidity and body mass index (BMI) of 39.0 to 39.9 in adult ([facility]) documented in this encounter [facility] HealthcareEvaluation note* Diagnosis DAISY (acute kidney injury) ([facility])- Primary Diabetic nephropathy associated with type 2 diabetes mellitus (HCC) ([facility]) Screening PSA (prostate specific antigen) Special screening for malignant neoplasm of prostate Well adult health check Unspecified general medical examination Morbid obesity due to excess calories ([facility]) Major depressive disorder, recurrent, moderate ([facility]) Major depressive disorder, recurrent episode, moderate Panic attack ([facility])- Primary Panic disorder without agoraphobia Major depressive disorder, single episode, moderate (HCC) ([facility]) Major depressive disorder, single episode, moderate Acute cystitis without hematuria Confusion Unspecified psychosis Medicare annual wellness visit, initial- Primary ACP (advance care planning) Other specified counseling Type 2 diabetes mellitus with diabetic neuropathic arthropathy, with long-term current use of insulin ([facility]) Primary hypertension ([facility]) Unspecified essential hypertension Screening PSA (prostate specific antigen) Special screening for malignant neoplasm of prostate Mixed hyperlipidemia ([facility]) Mixed hyperlipidemia Other problems related to lifestyle Stage 5 chronic kidney disease ([facility]) Dysthymia ([facility]) Dysthymic disorder Type 2 diabetes mellitus with diabetic polyneuropathy, with long-term current use of insulin (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) Debility Unspecified debility Dependent on hemodialysis ([facility]) Dizziness Dizziness and giddiness Duodenal ulcer Dyspnea on exertion Other dyspnea and respiratory abnormality Localized edema Edema Emphysematous cystitis Other specified types of cystitis History of anemia of chronic disease BRITTANY (generalized anxiety disorder) (CMS/HCC) Generalized anxiety disorder History of hydronephrosis Personal history of other disorder of urinary system Urinary tract obstruction by kidney stone Hyponatremia Hyposmolality and/or hyponatremia Primary insomnia Persistent disorder of initiating or maintaining sleep Lymphedema Other noninfectious lymphedema [facility] (current) use of insulin (CMS/HCC) Microalbuminuric diabetic nephropathy (CMS/HCC) Migraine without aura, not refractory (CMS/HCC) Orthostatic hypotension Peripheral vascular disease (CMS/HCC) Unspecified peripheral vascular disease Type 2 diabetes mellitus with hyperglycemia, with long-term current use of insulin (CMS/HCC) Obstructive sleep apnea syndrome Obstructive sleep apnea (adult) (pediatric) Tremor Abnormal involuntary movements Syncope, unspecified syncope type Panic attack (CMS/HCC) Panic disorder without agoraphobia Tardive dyskinesia Subacute dyskinesia due to drugs Confusion Unspecified psychosis Hyperparathyroid bone disease (CMS/HCC) Primary hyperparathyroidism Folate deficiency Other B-complex deficiencies Hypokalemia Hypopotassemia Major depressive disorder, recurrent severe without psychotic features (HCC) (CMS/HCC) Type 2 diabetes mellitus with other specified complication, with long-term current use of insulin Nephrolithiasis Calculus of kidney BPH with urinary obstruction Hypertrophy of prostate with urinary obstruction and other lower urinary tract symptoms (LUTS) Type 2 diabetes mellitus with diabetic peripheral angiopathy without gangrene, with long-term current use of insulin (CMS/HCC) Nodule of kidney Disorder of nervous system due to type 2 diabetes mellitus (CMS/HCC) Nephrosclerosis, stage 1 through stage 4 or unspecified chronic kidney disease Chronic kidney disease, stage 4 (severe) (CMS/HCC) Morbid (severe) obesity due to excess calories (CMS/HCC) Anemia due to stage 4 chronic kidney disease (CMS/HCC) BMI 39.0-39.9,adult Acquired buried penis Phimosis Redundant prepuce and phimosis Need for vaccination Need for prophylactic vaccination and inoculation against unspecified single disease documented in this encounter [facility] HealthcareEvaluation note* Diagnosis DAISY (acute kidney injury)- Primary Diabetic nephropathy associated with type 2 diabetes mellitus (HCC) Screening PSA (prostate specific antigen) Special screening for malignant neoplasm of prostate Well adult health check Unspecified general medical examination Morbid obesity due to excess calories (CMS-HCC) Major depressive disorder, recurrent, moderate (HCC) Major depressive disorder, recurrent episode, moderate Panic attack- Primary Panic disorder without agoraphobia Major depressive disorder, single episode, moderate (HCC) Major depressive disorder, single episode, moderate Acute cystitis without hematuria Confusion Unspecified psychosis Panic attack- Primary Panic disorder without agoraphobia BRITTANY (generalized anxiety disorder) Generalized anxiety disorder documented in this encounter [facility] HealthcareEvaluation note* Diagnosis Gastroesophageal reflux disease, unspecified whether esophagitis present- Primary Type 2 diabetes mellitus with stage 4 chronic kidney disease, with long-term current use of insulin ([facility]) Morbid obesity ([facility]) Morbid obesity SHADE (obstructive sleep apnea) Obstructive sleep apnea (adult) (pediatric) Myocardial bridge ([facility]) Congenital coronary artery anomaly Orthostatic hypotension CKD (chronic kidney disease) stage 4, GFR 15-29 ml/min ([facility]) Chronic kidney disease, Stage IV (severe) Anxiety Anxiety state, unspecified Tardive dyskinesia Subacute dyskinesia due to drugs Ascending aorta dilatation Thoracic aortic ectasia Acquired buried penis Other specified disorder of penis * Assessment & Plan Note - Cintia Salinas PA-C - 10/23/2024 12:54 PM EDT Associated Problem(s): Ascending aorta dilatation Mildly dilated ascending aorta and aortic root 4.0 cm on 08/30/2022. * Assessment & Plan Note - Cintia Salinas PA-C - 10/23/2024 12:11 PM EDT Associated Problem(s): Tardive dyskinesia On Ingrezza. Follows with neurology. * Assessment & Plan Note - Cintia Salinas PA-C - 10/23/2024 12:10 PM EDT Associated Problem(s): Anxiety Severe anxiety, on Paxil, hydroxyzine, Seroquel. * Assessment & Plan Note - Cintia Salinas PA-C - 10/23/2024 12:09 PM EDT Associated Problem(s): CKD (chronic kidney disease) stage 4, GFR 15-29 ml/min (HCC) H/o DAISY requiring dialysis temporarily. Now with CKD stage 4 per patient. Follows with nephrology. BMP pending. * Assessment & Plan Note - Cintia Salinas PA-C - 10/23/2024 12:06 PM EDT Associated Problem(s): Orthostatic hypotension On midodrine. Denies syncope. BP 124/82 in office today. Follows with cardiology, last visit 02/29/2024. Denies new or worsening symptoms. * Assessment & Plan Note - Cintia Salinas PA-C - 10/23/2024 12:05 PM EDT Associated Problem(s): Myocardial bridge (HCC) Cardiac cath with normal coronary arteries with mid LAD myocardial bridging in 2017. Follows with cardiology, last visit 02/29/2024. * Assessment & Plan Note - Cintia Salinas PA-C - 10/23/2024 12:03 PM EDT Associated Problem(s): SHADE (obstructive sleep apnea) Compliant with CPAP. * Assessment & Plan Note - Cintia Salinas PA-C - 10/23/2024 12:03 PM EDT Associated Problem(s): Morbid obesity (HCC) Body mass index is 40.4 kg/m . On Trulicity, advised patient to stop 7 days prior to surgery. * Assessment & Plan Note - Cintia Salinas PA-C - 10/23/2024 11:18 AM EDT Associated Problem(s): Type 2 diabetes mellitus with kidney complication, with long-term current use of insulin (HCC) On Trulicity, Humulin R. FBS 140s HgA1C 7.0 on 08/09/2024. * Assessment & Plan Note - Cintia Salinas PA-C - 10/23/2024 11:17 AM EDT Associated Problem(s): GERD (gastroesophageal reflux disease) H/o duodenal ulcers. On Prilosec. 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 Orthostatic hypotension CKD (chronic kidney disease) stage 4, GFR 15-29 ml/min (HCC) Chronic kidney disease, Stage IV (severe) Anxiety Anxiety state, unspecified Tardive dyskinesia Subacute dyskinesia due to drugs Ascending aorta dilatation Thoracic aortic ectasia Other stricture of urethral meatus in male- Primary Acquired buried penis Other specified disorder of penis [facility]* Diagnosis Gastroesophageal reflux disease, unspecified whether esophagitis present- Primary Type 2 diabetes mellitus with stage 4 chronic kidney disease, with long-term current use of insulin (HCC) Morbid obesity (HCC) Morbid obesity SHADE (obstructive sleep apnea) Obstructive sleep apnea (adult) (pediatric) 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 Orthostatic hypotension CKD (chronic kidney disease) stage 4, GFR 15-29 ml/min (HCC) Chronic kidney disease, Stage IV (severe) Anxiety Anxiety state, unspecified Tardive dyskinesia Subacute dyskinesia due to drugs Ascending aorta dilatation Thoracic aortic ectasia Postoperative visit- Primary Other specified aftercare following surgery [facility]* Diagnosis DAISY (acute kidney injury)- Primary Diabetic nephropathy associated with type 2 diabetes mellitus (HCC) Screening PSA (prostate specific antigen) Special screening for malignant neoplasm of prostate Well adult health check Unspecified general medical examination Morbid obesity due to excess calories ([facility]) Major depressive disorder, recurrent, moderate (HCC) Major depressive disorder, recurrent episode, moderate Panic attack- Primary Panic disorder without agoraphobia Major depressive disorder, single episode, moderate (HCC) Major depressive disorder, single episode, moderate Acute cystitis without hematuria Confusion Unspecified psychosis Severe recurrent major depression without psychotic features (HCC) Major depressive disorder, recurrent episode, severe, without mention of psychotic behavior Type 2 diabetes mellitus with diabetic neuropathic arthropathy, with long-term current use of insulin ([facility]) documented in this encounter [facility] HealthcareEvaluation note* Diagnosis Gastroesophageal reflux disease, unspecified whether esophagitis present- Primary Type 2 diabetes mellitus with stage 4 chronic kidney disease, with long-term current use of insulin ([facility]) Morbid obesity ([facility]) Morbid obesity SHADE (obstructive sleep apnea) Obstructive sleep apnea (adult) (pediatric) Myocardial bridge ([facility]) Congenital coronary artery anomaly Orthostatic hypotension CKD (chronic kidney disease) stage 4, GFR 15-29 ml/min ([facility]) Chronic kidney disease, Stage IV (severe) Anxiety Anxiety state, unspecified Tardive dyskinesia Subacute dyskinesia due to drugs Ascending aorta dilatation Thoracic aortic ectasia Acquired buried penis- Primary Other specified disorder of penis [facility] Diagnosis DAISY (acute kidney injury)- Primary Diabetic nephropathy associated with type 2 diabetes mellitus (HCC) Screening PSA (prostate specific antigen) Special screening for malignant neoplasm of prostate Well adult health check Unspecified general medical examination Morbid obesity due to excess calories ([facility]-HCC) Major depressive disorder, recurrent, moderate (HCC) Major depressive disorder, recurrent episode, moderate Panic attack- Primary Panic disorder without agoraphobia Major depressive disorder, single episode, moderate (HCC) Major depressive disorder, single episode, moderate Acute cystitis without hematuria Confusion Unspecified psychosis Tardive dyskinesia- Primary Subacute dyskinesia due to drugs Tremor Abnormal involuntary movements documented in this encounter [facility] HealthcareHistory general Narrative - Reported* Type Description Date Medical History diabetes mellitus Medical History edema Medical History kidney disease, stage 3 Medical History hypertension Medical History Charcot foot Medical History Sleep apnea Medical History Kindey stone in 1989, passed Medical History KIDNEY FAILURE Medical History GOUT Medical History ASTHMA Surgical History heart catheterization at [place] 2016 Surgical History gallbladder 2011 Surgical History egd 2019 Surgical History colonoscopy 2019 Surgical History PORT IN CHEST 2022 Hospitalization History see above Hospitalization History [facility] 05/2022 [facility] Other History general Narrative - Reported* Type Description Date Medical History diabetes mellitus Medical History edema Medical History kidney disease, stage 3 Medical History hypertension Medical History Charcot foot Medical History Sleep apnea Medical History Kindey stone in 1989, passed Medical History KIDNEY FAILURE Medical History GOUT Medical History ASTHMA Surgical History heart catheterization [place] 2016 Surgical History gallbladder 2010 Surgical History egd 2019 Surgical History colonoscopy 2019 Surgical History PORT IN CHEST 2022 Hospitalization History see above Hospitalization History [facility] X3 TIMES 05/2022 [facility] Other Hospital course Narrative No data available for this section [facility] Hospital Discharge instructions No data available for this section [facility] Progress note No data available for this section [facility] Summary Purpose Family History No Family History Records Found Relationship Condition Age at Onset Recorded Date/T kirstie father History of stroke Unknown Unknown family member Unknown Not Specified Hypertension Unknown Heart disease Unknown sister Diabetes mellitus Unknown Relationship Condition Age at Onset Recorded Date/T kirstie father History of stroke Unknown Unknown family member Unknown mother Hypertension Unknown Heart disease Unknown sister Diabetes mellitus Unknown Advance Directives No Advanced Directives Records FoundLatest [...] Therapy Diagn[place] [address] [place] [address] [facility] Occupation Therapy [address] [place] [address] Referral ID Status Reason Start Date Expiration Date V isits Requested Visits Authorized [id number] Open Specialty Services Required 06/11/2022 06/11/2023 1 1 Scheduling Instructions [facility] at [facility] - Occupational Therapy [address] [place] [address] , [address] [place], [place] [id number] Please call within 48 hours to schedule [...] Diagnoses Physical deconditioning Marcus Yepez MD [address] [place] [address] [facility] [address] [facility] [place] [address] Referral ID Status Reason Start Date Expiration Date V isits Requested Visits Authorized [id number] Open Specialty Services Required 06/11/2022 06/11/2023 1 1 Scheduling Instructions [facility] Health Promotion at [facility] - Physical Therapy [address] [place] [address], , [address] [place] [address] Please call within 48 hours to schedule [...] Therapist Diagnoses Debility Shelley Huggins MD [address] [place] [address] Referral ID Status Reason Start Date Expiration Date V isits Requested Visits Authorized [id number] Open Specialty Services Required 07/08/2022 01/04/2023 1 1 Scheduling Instructions Patient with debility secondary to UTI and renal failure. [facility] Question Answer Reason For External Referral? Location Comments The patient can be scheduled with any member of the group, including the provider with the first available appointments. Chief Complaint and Reason for Visit Chief Complaint sob tremors Chief Complaint sob tremors anxiety Reason for Visit Acute anxiety Chief Complaint sob tremors anxiety Sent by Reason for Visit Acute anxiety Major depression Chief Complaint RENAL 4 month f/u Reason for Visit Anemia Chronic kidney disease, stage IV (severe) Folate deficiency Hyperparathyroid bone disease Hyperuricemia Hypokalemia Hypotension Metabolic acidosis Nephrolithiasis Obesity Type 2 diabetes mellitus with diabetic nephropathy Chief Complaint Admit Date June 07, 2024 10:07am RENAL 4 MONTH F/U July 10, 2024 9:28 am Reason for Visit Admit Date Anemia July 10, 2024 9:28 am Chronic kidney disease, stage IV (severe ) July 10, 2024 9:28am Dribbling urine July 10, 2024 9:28 am Folate deficiency July 10, 2024 9:28 am Hyperparathyroid bone disease July 10, 2024 9:28am Hyperuricemia July 10, 2024 9:28 am Hypokalemia July 10, 2024 9:28 am Hypomagnesemia July 10, 2024 9:28 am Hypotension July 10, 2024 9:28 am Metabolic acidosis July 10, 2024 9:28 am Nephrolithiasis July 10, 2024 9:28 am Obesity July 10, 2024 9:28 am Type 2 diabetes mellitus with diabetic n ephropathy July 10, 2024 9:28am Additional Source Comments (unrecognized sect ion and [...] section and content) DATE CREATED AUTHOR 09/28/2017 [facility] DATE CREATED AUTHOR AUTHOR'S ORGANIZ ATION 07/21/2022 [facility] DATE CREATED AUTHOR AUTHOR'S ORGANIZ ATION 08/23/2022 [facility] DATE CREATED AUTHOR AUTHOR'S ORGANIZ ATION 09/17/2022 [facility] DATE CREATED AUTHOR AUTHOR'S ORGANIZ ATION 05/25/2023 [facility] DATE CREATED AUTHOR AUTHOR'S ORGANIZ ATION 03/03/2024 [facility] DATE CREATED AUTHOR AUTHOR'S ORGANIZ ATION 05/05/2024 [facility] DATE CREATED AUTHOR AUTHOR'S ORGANIZ ATION 05/10/2024 [facility] DATE CREATED AUTHOR AUTHOR'S ORGANIZ ATION 05/16/2024 [facility] DATE CREATED AUTHOR AUTHOR'S ORGANIZ ATION 05/20/2024 [facility] DATE CREATED AUTHOR AUTHOR'S ORGANIZ ATION 05/31/2024 [facility] DATE CREATED AUTHOR AUTHOR'S ORGANIZ ATION 08/03/2024 [facility] DATE CREATED AUTHOR AUTHOR'S ORGANIZ ATION 09/07/2024 [facility] DATE CREATED AUTHOR AUTHOR'S ORGANIZ ATION 11/28/2024 [facility] DATE CREATED AUTHOR AUTHOR'S ORGANIZ ATION 12/21/2024 [facility] DATE CREATED AUTHOR AUTHOR'S ORGANIZ ATION 12/23/2024 [facility] Reason for Visit (unrecogniz ed section and content) Specialty Diagnoses / Procedures Referred By Mark t Referred To Contact Diagnoses Acute renal failure (ARF) (HCC) ARF (acute renal failure) (HCC) ARF [address] [place] [address] [address] [address] [place] [address] Referral ID Status Reason Start Date Expiration Date Visits Re quested Visits Authorized [id number] 1 1 Reason Comments Fall Fever Flank Pain Specialty Diagnoses / Procedures Referred By Contac t Referred To Contact Diagnoses Pyelonephritis DAISY (acute kidney injury) (HCC) Acute kidney injury superimposed on CKD (HCC) [address] Renal/Med Surg [address] [place] [address] [address] [address] [place] [address] Referral ID Status Reason Start Date Expiration Date Visits Re quested Visits Authorized [id number] 1 1 Reason Comments Med Management Follow-up Reason Comments Diabetes Reason Comments Med Refill Omeprazole and Allop urinol Reason Onset Date Comments Advice Only 04/30/2024 Reason Comments Diabetes Reason Comments Consult Reason Comments Established Patient Reason Comments Medicare Annual Wellness Visit Initial Reason Comments Pre-Op Visit Reason Comments Patient Update Reason Comments Post Op Reason Comments Established Patient Follow-Up Reason Onset Date Comments Medication Problem 12/06/2024 Reason Comments Follow Up Reason Comments Tardive dyskinesia Ordered Prescriptions (unrec ognized section and content) [...] 1 each 0 06/11/2022 Ergocalciferol (VITAMIN D) 23431 units CAPS Take 50,000 Units by mouth [...] Insulin Pen Needle 32G X 6 MM [facility] Use one needle for each insulin injection [...] 1000, Until Discontinued 0818 (Given - Provider: Amnada Celestin RN) 0904 (Given - Provider: Amanda [...] days 0830 (Given - Provider: Amanda Celestin RN)2133 (Given - Provider: Desean Kitchen RN) 0904 (Given - Provider: Amanda Celestin RN)2034 (Given - Provider: Kirk Street RN) 0835 (Given - Provider: Rakesh Knutson RN)2100 (Due) dextrose 50 % IV solution 25 g, IntraVENous, ONCE, 1 dose, On Tue05/28/22 at 1830 heparin (porcine) injection 5,000 Units 5,000 Units, SubCUTAneous, EVERY 8 HOURS SCHEDULED (3 times per day), First dose (after last modification) on 05/29/22 at 0600, Until Discontinued 0532 (Given - Provider: Lety Cox RN)1442 (Given - Provider: Amanda Celestin RN)2133 (Given - Provider: Desean Kitchen RN) 0614 (Given - Provider: Desean Kitchen RN)134 (Given - Provider: Amanda Celestin RN)2034 (Given - Provider: Kirk Street RN) 0602 (Given - Provider: Gina Pradhan RN)134 (Given - Provider: Rakesh Knutson RN)2200 (Due) insulin lispro (HUMALOG) injection vial 0-16 Units 0-16 Units, SubCUTAneous, 3 TIMES DAILY WITH MEALS, First dose on Tue05/29/22 at 1200, Until Discontinued, High Dose Corrective [...] modification) on Tue06/04/22 at 0900, Until Discontinued 0947 (Given - Provid er: Rakesh Knutson RN) metoprolol tartrate (LOPRESSOR) tablet 50 mg (CANCELED) 50 mg, Oral, 2 TIMES DAILY, First dose on Tue05/29/22 at 1000, Until Discontinued 0818 (Given - Provider: Amanda Celestin RN)2133 (Given [...] Oral, DAILY BEFORE BREAKFAST, First dose on 05/30/22 at 0700, Until Discontinued, Do not crush or break. 0533 (Given - Provider: Lety Cox RN) 902 (Given - Provider: Amanda Celestin RN) 08 (Given - Provider: Rakesh Knutson RN) potassium [...] Street, HAYDE) 0838 (Given - Provider: Rakesh Knutson, HAYDE)2099 (Due) sodium chloride flush 0.9 % injection [...] Amanda Celestin RN)2145 (Given - Provider: Desean Kitchen, HAYDE) 09 (Given - Provider: Amanda Celestin RN)2035 [...] Celestin RN) 0834 (Given - Provider: Rakesh Knutson, HAYDE) venlafaxine (EFFEXOR XR) extended release capsule 150 mg 150 mg, Oral, DAILY, First dose (after last modification) on Tue06/01/22 at 0900, Until Discontinued, Do not crush or break. 0819 (Given - Provider: Amanda Celestin, RN) 0903 (Given - Provider: Amanda Celestin [...] modification) on Tue06/04/22 at 2115, Until Discontinued 220 (Given - Provider: Priya Londono LPN) 2226 (Given - Provider: Priya Londono LPN) 2100 (Due) brexpiprazole (REXULTI) tablet 1 mg 1 mg, Oral, DAILY, First dose (after last modification) on Candace 06/10/22 at 0900, Until Discontinued 0739 (Given - Provider: Glenda Stinson RN)0850 (Canceled Entry - Provider: Glenda Stinson RN) 0819 (Given - Provider: Thea Montes, HAYDE) brexpiprazole (REXULTI) tablet 2 mg (CANCELED) 2 mg, Oral, DAILY, First dose (after last modification) on 06/05/22 at 0900, Until Discontinued 1251 (Given - Provider: Alba Miller RN) budesonide-formoterol (SYMBICORT) 80-4.5 MCG/ACT inhaler 2 puff 2 puff, Inhalation, 2 TIMES DAILY, First dose (after last modification) on 06/05/22 at 0800, Until Discontinued, Rinse mouth out with water (without swallowing) after every dose. 09 (Given - Provider: Marsha Soliz)2017 (Given - Provider: Agnes Powell RCP) 0700 (Given - Provider: Prabha Gomez RCP)195 (Given - Provider: Maddy Abarca RCP) 0947 (Not Given - Provider: Eugenie Rubio RCP - Reason: Patient not available)1999 (Due) cephALEXin (KEFLEX) capsule 500 mg (COMPLETED) 500 mg, Oral, EVERY 12 HOURS SCHEDULED (2 times per day), 10 doses, First dose (after last modification) on Tue06/04/22 at 2115, Last dose on Tue06/09/22 at 0900, Antimicrobial Indications: Urinary Tract Infection, UTI duration of therapy: 5 days 0712 (Given - Provider: Alba Miller, HAYDE) heparin (porcine) injection 5,000 Units 5,000 Units, SubCUTAneous, EVERY 8 HOURS SCHEDULED (3 times per day), First dose (after last modification) on Tue06/04/22 at 2200, Until Discontinued 0603 (Given - Provider: Gisselle Barry RN)1251 (Given - Provider: Alba Miller RN)2208 (Given - Provider: Priya Londono LPN) 0547 (Given - Provider: Stephania Corey, RN)1351 (Given - Provider: Glenda Stinson RN)2226 (Given - Provider: Priya Londono LPN) 0551 (Given - Provider: Priya Londono LPN)1240 (Not Given - Provider: Thea Montes RN - Reason: Other - Comment: discharge)2200 (Due) insulin lispro (HUMALOG) injection vial 0-16 [...] Over 349 4 Units and notify physician 205 (Not Given - Provider: Priya Londono LPN - Reason: Order parameters not met) 2226 (Given - Provider: Priya Londono LPN) [...] Provider: Glenda Stinson RN)2225 (Given - Provider: rPiya Londono LPN) 0819 (Given - Provider: Thea Montes, HAYDE)1247 (Given - Provider: Thea Montes, HAYDE)2100 (Due) tamsulosin (FLOMAX) capsule 0.4 mg 0.4 mg, Oral, DAILY, First dose (after last modification) on 06/05/22 at 0900, Until Discontinued, Do not crush or break. 0712 (Given - Provider: Alba Miller RN) 0740 (Given - Provider: Glenda Stinson RN) 0819 (Given - Provider: Thea Montes, RN) venlafaxine (EFFEXOR XR) extended release capsule 150 mg 150 mg, Oral, DAILY, First dose (after last modification) on Tue06/05/22 at 0900, Until Discontinued, Do not crush or break. 0712 (Given - Provider: Alba Miller RN) 0740 (Given - Provider: Glenda Stinson RN) 0819 (Given - Provider: Thea Montes, RN) vitamin D (ERGOCALCIFEROL) capsule 50,000 Units 50,000 Units, Oral, WEEKLY, First dose (after last modification) on Tue06/07/22 at 0900, Until Discontinued PRN Medication Order 06/09/2022 06/10/2022 06/11/2022 acetaminophen (TYLENOL) tablet 650 mg 650 mg, Oral, EVERY 4 HOURS PRN, Starting on Tue06/04/22 at 6, Until Discontinued, Pain Mild (1-3), Fever, Fever [...] Rectal, DAILY PRN, Starting on Tue06/04/22 at 210, Until Discontinued, Constipation, TO BE GIVEN AFTER [...] Until Discontinued 153 (Not Given - Provider: Cintia Metzger RN - Reason: Medication not available - Comment: Med not available and scheduled time. Patient in dialysis) 0723 (JUN Hold - Provider: Kaye Autohold - Reason: Unreviewed Transfer Orders)0900 (Automatically Held - Provider: Kaye Autohold)1112 (MAR Unhold - Provider: Jessenia Norton RN)180 (Given - Provider: Jessenia Norton RN) 0954 (Given - Provider: Cintia Metzger RN) atorvastatin (LIPITOR) tablet 20 mg [...] dose on 06/21/22 at 0900, Until Discontinued 1027 (Not Given - Provider: Cintia Metzger RN - Reason: Patient/family refused) 0723 (JUN Hold - Provider: Kaye Autohold - Reason: Unreviewed Transfer Orders)0900 (Automatically Held - Provider: Kaye Autohold)1112 (MAR Unhold - Provider: Jessenia Norton RN) 0954 (Not Given - Provider: Cintia Metzger RN - Reason: Patient/family refused) brexpiprazole (REXULTI) tablet 2 mg 2 mg, Oral, DAILY, First dose (after last modification) on Tue06/24/22 at 2330, Until Discontinued 1359 (Given - Provider: Cintia Metzger RN) 0723 (MAR Hold - Provider: Kaye Autohold - Reason: Unreviewed Transfer Orders)0900 (Automatically Held - Provider: Kaye Autohold)1112 (MAR Unhold - Provider: Jessenia Norton RN)1805 (Given - Provider: Jessenia Norton RN) 0954 (Given - Provider: Cintia Metzger RN) budesonide-formoterol (SYMBICORT) 80-4.5 MCG/ACT inhaler 2 puff 2 puff, Inhalation, 2 TIMES DAILY, First dose on Tue06/20/22 at 0800, Until Discontinued, Rinse mouth out with water (without swallowing) after every dose. 0920 (Given - Provider: Rayray Mack RCP)2112 (Given - Provider: Eldon Romero RCP) 0723 (MAR Hold - Provider: Kaye Autohold [...] dilute in syringe to 20 mL. 0723 (JUN Hold - Provider: Kaye Autohold - Reason: Unreviewed Transfer Orders)0900 (Automatically Held - Provider: Kaye Autohold)1112 ([facility] Unhold - Provider: Jessenia Norton RN)112 (Not Given - Provider: Jessenia Norton RN - Reason: Loss of IV access)1910 (Given - Provider: Jessenia Norton RN) gabapentin (NEURONTIN) capsule 300 mg 300 mg, Oral, DAILY, First dose (after last modification) on Tue06/27/22 at 1300, Until Discontinued 1359 (Given - Provider: Cintia Metzger RN) 0723 (JUN Hold - Provider: Kaye Autohold - Reason: Unreviewed Transfer Orders)111 ([facility] Unhold - Provider: Jessenia Norton RN)180 (Given - Provider: Jessenia Norton RN) 1318 (Given - Provider: Cintia Metzger RN) heparin (porcine) injection 5,000 Units 5,000 Units, SubCUTAneous, EVERY 8 HOURS SCHEDULED (3 times per day), First dose on Tue06/21/22 at 2200, Until Discontinued 0547 (Given - Provider: Lety Jones RN)1355 (Not Given - Provider: Cintia Metzger RN - Reason: Contraindicated - Comment: IR procedure)214 (Given - Provider: Levi Javier RN) 0553 (Given - Provider: Levi Javier RN)07 (MAR Hold - Provider: Kaye Autohold - Reason: Unreviewed Transfer Orders)111 ([facility] Unhold - Provider: Jessenia Norton RN)180 (Given - Provider: Jessenia Norton RN)215 (Not Given - Provider: Levi Javier RN - Reason: Other - Comment: given at 1806) 0549 (Given - Provider: Levi Javier, HAYDE)1400 (Due)2200 (Due) insulin glargine (LANTUS) injection vial 25 Units 25 Units, SubCUTAneous, NIGHTLY, First dose (after last modification) on Tue06/25/22 at 2100, Until Discontinued 2030 (Given - Provider: Levi Javier RN) 0723 (JUN Hold - Provider: Kaye Autohold - Reason: Unreviewed Transfer Orders)111 (MAR Unhold - Provider: Jessenia Norton RN)2102 [...] Orders)1112 (MAR Unhold - Provider: Jessenia Norton RN)2047 [...] notify physician 1025 (Not Given - Provider: Cintia Metzger RN - Reason: Order parameters not met)1401 (Not Given - Provider: Cintia Metzger RN - Reason: Order parameters not met)1746 (Not Given - Provider: Cintia Metzger RN - Reason: Order parameters not [...] not met) 0914 (Not Given - Provider: Cintia Metzger RN - Reason: Order parameters not met)1318 (Given - Provider: Cintia Metzger RN)1700 (Due) lamoTRIgine (LAMICTAL) tablet 200 mg 200 mg, Oral, DAILY, First dose on 06/20/22 at 0900, Until Discontinued 1359 (Given - Provider: Cintia Metzger RN) 0723 (MAR Hold - Provider: Kaye Autohold - Reason: Unreviewed Transfer Orders)0900 (Automatically Held - Provider: Kaye Autohold)1112 (MAR Unhold - Provider: Jessenia Norton RN)1804 (Given - Provider: Jessenia Norton RN) 1210 (Given - Provider: Cintia Metzger RN - Comment: medication not available [...] or break. 1025 (Not Given - Provider: Cintia Metzger RN - Reason: Patient not available) 0658 (Given - Provider: Levi Javier RN)0723 (MAR Hold - Provider: Kaye Autohold - Reason: Unreviewed Transfer Orders)1112 (MAR Unhold - Provider: Jessenia Norton RN)1804 (Given - Provider: Jessenia Norton RN) 0954 (Given - Provider: Cintia Metzger RN) polyethylene glycol (GLYCOLAX) packet 17 g 17 g, Oral, DAILY, First dose on 06/21/22 at 0900, Until Discontinued, Stir and dissolve one packet of powder (17 g) in any 4 to 8 ounces of beverage (cold, hot or room temperature) then drink 1026 (Not Given - Provider: Cintia Metzger RN - Reason: Patient/family refused) 0723 (MAR Hold - Provider: Kaye Autohold - Reason: Unreviewed Transfer Orders)0900 (Automatically Held - Provider: Kaye Autohold)1112 (MAR Unhold - Provider: Jessenia Norton RN) 0954 (Not Given - Provider: Cintia Metzger RN - Reason: Patient/family refused) propranolol (INDERAL) tablet 20 mg 20 mg, Oral, 3 TIMES DAILY, First dose on Tue06/20/22 at 0900, Until Discontinued 102 (Not Given - Provider: Cintia Metzger RN - Reason: Patient not available - Comment: Dialysis)1359 (Given - Provider: Cintia Blunt V RN)2008 (Given - Provider: Levi Javier RN) 0723 (MAR Hold - Provider: Kaye Autohold - Reason: Unreviewed Transfer Orders)0900 (Automatically Held - Provider: Kaye Autohold)111 (MAR Unhold - Provider: Jessenia Norton RN)180 (Given - Provider: Jessenia Norton RN)2120 (Not Given - Provider: Levi Javier RN - Reason: Other - Comment: given at 180) 0955 (Given - Provider: Cintia Metzger RN)1400 (Due)2099 (Due) scopolamine (TRANSDERM-SCOP) transdermal [...] Levi Javier RN - Reason: Patient/family refused) 07 (MAR Hold - Provider: Kaye Autohold - [...] = 20 mL/lumen 1359 (Given - Provider: Cintia Metzger RN)2030 (Given - Provider: Levi Javier RN) 0723 (MAR Hold - Provider: Mar Autohold - Reason: Unreviewed Transfer Orders)0900 (Automatically Held - Provider: Kaye Autohold)1112 (MAR Unhold - Provider: Jessenia Norton RN)1123 (Given - Provider: Jessenia Norton RN)2109 (Given - Provider: Levi Javier RN) 0954 (Given - Provider: Cintia Metzger RN)2100 (Due) tamsulosin (FLOMAX) capsule 0.4 mg 0.4 mg, Oral, DAILY, First dose on 06/20/22 at 0900, Until Discontinued, Do not crush or break. 1359 (Given - Provider: Cintia Metzger RN) 0723 (MAR Hold - Provider: Kaye Autohold - Reason: Unreviewed Transfer Orders)0900 (Automatically Held - Provider: Kaye Autohold)1112 (MAR Unhold - Provider: Jessenia Norton RN)1806 (Given - Provider: Jessenia Norton RN) 0954 (Given - Provider: Cintia Metzger RN) venlafaxine (EFFEXOR XR) extended release capsule 150 mg 150 mg, Oral, DAILY, First dose on 06/20/22 at 0900, Until Discontinued, Do not crush or break. 1359 (Given - Provider: Cintia Metzger RN) 0723 (MAR Hold - Provider: Kaye Autohold - Reason: Unreviewed Transfer Orders)0900 (Automatically Held - Provider: Kaye Autohold)1112 (MAR Unhold - Provider: Jessenia Norton RN)1805 (Given - Provider: Jessenia Norton RN) 0954 (Given - Provider: Cintia Metzger RN) Continuous Medication Order 06/28/2022 06/29/2022 [...] less into rate field of order. 0723 (JUN Hold - Provider: Kaye Autohold - Reason: Unreviewed Transfer Orders)1112 ([facility] Unhold - Provider: Jessenia Norton RN) acetaminophen (TYLENOL) suppository 650 mg(Linked Group 1) 650 mg, Rectal, EVERY 6 HOURS PRN, Starting on Tue06/20/22 at 0654, Until Discontinued, Pain Mild (1-3), Fever, For temp greater than 100.4 F (38 C), Administer if oral route cannot be used. 0723 (JUN Hold - Provider: Kaye Autohold - Reason: Unreviewed Transfer Orders)1112 ([facility] Unhold - Provider: Jessenia Norton RN) acetaminophen (TYLENOL) tablet 650 mg(Linked Group 1) 650 mg, Oral, EVERY 6 HOURS PRN, Starting on 06/20/22 at 0654, Until Discontinued, Pain Mild (1-3), Fever, For temp greater than 100.4 F (38 C), Maximum dose of acetaminophen is 4000 mg from all sources in 24 hours. 722 ([facility] Hold - Provider: Kaye Autohold - Reason: Unreviewed Transfer Orders)111 ([facility] Unhold - Provider: Jessenia Norton RN) albuterol sulfate HFA (PROVENTIL;VENTOLIN;PROAIR) 108 (90 Base) MCG/ACT inhaler 2 puff 2 puff, Inhalation, EVERY 6 HOURS PRN, Starting on 06/20/22 at 0654, Until Discontinued, Wheezing, Shortness of Breath, Initiate RT Bronchodilator Protocol: Yes - Inpatient Protocol 722 ([facility] Hold - Provider: [facility] Autohold - Reason: Unreviewed Transfer Orders)111 ([facility] Unhold - Provider: Jessenia Norton RN) ALPRAZolam (XANAX) tablet 0.5 mg 0.5 mg, Oral, 2 TIMES DAILY PRN, Starting on Tue06/25/22 at 1415, Until Discontinued, Anxiety 722 ([facility] Hold - Provider: [facility] Autohold - Reason: Unreviewed Transfer Orders)1111 ([facility] Unhold - Provider: Jessenia Norton RN) dextrose 10 % infusion IntraVENous, at 100 mL/hr, CONTINUOUS PRN, if blood glucose remains LESS THAN 70 mg/dL after 2 dextrose 10% intravenous boluses or administration of glucagon, Starting on Tue06/20/22 at 0654, If blood glucose fails to stabilize after 2 dextrose 10% intravenous boluses or glucagon administration, start dextrose 10% infusion at 100 mL/hour and repeat blood glucose at 30 and 60 minutes. If blood glucose is GREATER THAN 70 mg/dL after 60 minutes, discontinue dextrose 10% infusion. 722 ([facility] Hold - Provider: Kaye Autohold - Reason: Unreviewed Transfer Orders)1111 ([facility] Unhold - Provider: Jessenia Norton RN) dextrose bolus 10% 125 mL(Linked Group 2) 125 mL, IntraVENous, at 937.5 mL/hr, Administer over 8 Minutes, PRN, Other, Blood glucose 40 - 69 mg/dL and patient NOT ALERT or NPO, Starting on Tue06/20/22 at 0654, Repeat blood glucose in 15 minutes. If blood glucose remains LESS THAN 70 mg/dL, repeat treatment and recheck blood glucose in 15 minutes x 2. If using glycemic management system, dose as instructed per system. If blood glucose remains LESS THAN 70 mg/dL after 2 intravenous boluses start dextrose 10% at 100 mL/hour and notify provider. 0723 ([facility] Hold - Provider: [facility] Autohold - Reason: Unreviewed Transfer Orders)1112 ([facility] Unhold - Provider: Jessenia Norton [...] 100 mL/hour and notify provider. 0723 ([facility] Hold - Provider: [facility] Autohold - Reason: Unreviewed Transfer Orders)1112 ([facility] Unhold - Provider: Jessenia Norton [...] minutes x2 and notify provider. 0723 ([facility] Hold - Provider: [facility] Autohold - Reason: Unreviewed Transfer Orders)1112 ([facility] Unhold - Provider: Jessenia Norton [...] notify provider. 722 (JUN Hold - Provider: [facility] Autohold - Reason: Unreviewed Transfer Orders)1111 ([facility] Unhold - Provider: Jessenia Norton RN) heparin (porcine) injection 1,700 Units 1,700 Units, IntraCATHeter, PRN, Starting on Tue06/29/22 at 1655, Until Discontinued, Line Care, For installation into each catheter limb Arterial 1700 units To be given in Dialysis 165 (Given - Provider: Lety Mcbride RN) heparin (porcine) injection 1,800 Units 1,800 Units, IntraCATHeter, PRN, Starting on Tue06/29/22 at 1655, Until Discontinued, Line Care, For installation into each catheter limb Venous 1800 units To be given in Dialysis 165 (Given - Provider: Lety Mcbride RN) heparin [...] % uro-jet Topical, PRN, Pain, Starting on Tue06/20/22 at 0805 07 ([facility] Hold - Provider: [facility] Autohold - Reason: Unreviewed Transfer Orders)1111 ([facility] Unhold - Provider: Jessenia Norton RN) ondansetron (ZOFRAN) injection 4 mg(Linked Group 3) 4 mg, IntraVENous, EVERY 6 HOURS PRN, Starting on Tue06/20/22 at 0654, Until Discontinued, Nausea, Vomiting, Administer if oral route cannot be used. 722 ([facility] Hold - Provider: [facility] Autohold - Reason: Unreviewed Transfer Orders)1111 ([facility] Unhold - Provider: Jessenia Norton RN) ondansetron (ZOFRAN-ODT) disintegrating tablet 4 mg(Linked Group 3) 4 mg, Oral, EVERY 8 HOURS PRN, Starting on 06/20/22 at 0654, Until Discontinued, Nausea, Vomiting 0723 ([facility] Hold - Provider: Kaye Autohold - Reason: Unreviewed Transfer Orders)1112 ([facility] Unhold - Provider: Jessenia Norton, HAYDE) oxyCODONE (ROXICODONE) immediate release tablet 5 mg 5 mg, Oral, EVERY 4 HOURS PRN, Starting on 06/20/22 at 1322, Until Discontinued, Pain Severe (7-10) 0723 ([facility] Hold - Provider: Kaye Autohold - Reason: Unreviewed Transfer Orders)1112 ([facility] Unhold - Provider: Jessenia Norton [...] Central Line = 20 mL/lumen 0723 ([facility] Hold - Provider: Kaye Autohold - Reason: Unreviewed Transfer Orders)111 ([facility] Unhold - Provider: Jessenia Norton RN) sterile [...] cannot be used.
Scheduled Medication Order 07/06/2022 07/07/202207/0807/08/2022 allopurinol (ZYLOPRIM) tablet 100 mg 100 mg, [...] RCP) 1053 (Given - Provider: Karina Charles RCP)2018 (Given - Provider: Erica Pandya RCP) 1105 [...] modification) on Tue06/30/22 at 2100, Until Discontinued 213 (Given - Provider: Vitor Iniguez LPN) 213 [...] Over 349 4 Units and notify physician 213 (Not Given - Provider: Vitor Iniguez LPN - Reason: Order parameters not met - Comment: Blood sugar was 261.) 214 (Not Given - Provider: Quinn Vazquez LPN - Reason: Order parameters not met) 2100 [...] modification) on Tue06/30/22 at 2100, Until Discontinued 47 (Given - Provider: Sahra Cruz II, LPN)1225 (Given - Provider: Sahra Cruz II, LPN)2138 (Given - Provider: Vitor Iniguez LPN) 0740 (Given - Provider: Ernestina Steve LPN)1410 (Given - Provider: Ernestina Steve LPN)2138 (Given - Provider: Quinn Vazquez LPN) 0811 (Given - Provider: Ernestina Steve LPN)1400 (Due)2099 (Due) senna (SENOKOT) tablet 8.6 mg 8.6 [...] DAILY, First dose (after last modification) on Candcae 07/01/22 at 0900, Until Discontinued, Do not crush [...] MD Primary Care Provider Active Team Status: Active Member Role Status Dates NON STAFF Primary Care Provider Active Start: August 24, 2023 Gary Wiley MD Attending Provider Active Start: August 24, 2023 Team Status: Active Member Role Status Dates Darion Randle MD Primary Care Provider Active S tart: September 02, 2023 Fani Dill MD Attending Provider Active Star t: September 02, 2023 Team Status: Inactive Member Role Status Dates Darion Randle MD Primary Care Provider Active S tart: September 07, 2023 End: September 07, 2023 Fani Dill MD Attending Provider Active Star t: September 07, 2023 End: September 07, 2023 Team Status: Inactive Member Role Status Dates Ewa Kim [facility] Emergency Provider Active Darion Randle MD Primary Care Provider Active Arash Henry MD Admit Provider, Attending Provider Active Team Status: Inactive Member Role Status Dates Darion Randle MD Primary Care Provider Active Saturnino Ballard Jr, MD Emergency Provider Active Team Status: Inactive Member Role Status Dates NON STAFF Primary Care Provider Active Cody Black MD Emergency Provider Active [employer] Relationship Specialty Start Date End Date Darion Randle MD [address] [facility] [address] [place] [address] PCP - General Family Medicine 06/03/22 [employer] St[employer]cher Relationship Specialty Start Date End Date Darion Randle MD [address] [facility] [address] [place] [address] PCP - General Family Medicine 06/03/22 [employer] St[employer]cher Relationship Specialty Start Date End Date Darion Randle MD [address] [place] [address] PCP - General Family Medicine 06/03/22 S[employer] Tree Stitcher Relationship Specialty Start Date End Date Darion Randle MD [address] [place] [address] PCP - General Family Medicine 06/03/22 S[employer] Stitcher Relationship Specialty Start Date End Date Darion Randle MD [address] [facility] [address] [place] [address] PCP - General Family Medicine 06/03/22 Team Status: Active Member Role Status Dates NON STAFF Primary Care Provider Active Team Status: Active Member Role Status Dates Ewa Kim , [facility]- Emergency Provider Active Darion Randle MD Primary Care Provider Active Arash Henry MD Admit Provider, Attending Provider Active [employer] Stitcher Relationship Specialty Start Date End Date Darion Randle MD [address] [facility] [address] [place] [address] PCP - General Family Medicine 08/14/22 Lexis Keen, [employer]BER[employer]CE SUPERVISOR-[facility] [address] [facility] [address] [place] [address] PCP - [employer] 04/11/23 Saddle Tree Stitcher Relationship Specialty Start Date End Date Darion Randle MD [address] [facility] [address] [place] [address] PCP - General Family Medicine 08/14/22 Lexis Keen, REVERBERATORY FURNACE SUPERVISOR-[employer] [address] [facility] [address] [place] [address] PCP - [employer] 04/11/23 Saddle Tree Stitcher Relationship Specialty Start Date End Date Darion Randle MD [address] [facility] [address] [place] [address] PCP - General Family Medicine 08/14/22 Lexis Keen, REVERBERATORY [employer]NACE SUPERVISOR-[employer] [address] [facility] [address] [place] [address] PCP - [employer] 04/11/23 Saddle Tree Stitcher Relationship Specialty Start Date End Date Darion Randle MD [address] [facility] [address] [place] [address] PCP - General Family Medicine 08/14/22 Lexis Keen, REVERBERATORY F[employer]NACE SUPERVISOR[employer] [address] [facility] [address] [place] [address] PCP - [employer] 12/10/22 Saddle Tree Stitcher Relationship Specialty Start Date End Date Darion Randle MD [address] [facility] [address] [place] [address] PCP - General Family Medicine 08/14/22 Lexis Keen, REVERBERATORY [employer]CE SUPER[employer]OR[employer] [address] [facility] [address] [place] [address] PCP - [employer] 12/10/22 S[employer] Tree Stitcher Relationship Specialty Start Date End Date Darion Randle MD [address] [facility] [address] [place] [address] PCP - General Family Medicine 08/14/22 Lexis Keen, REVERBERATORY [employer]CE SUPER[employer]OR-[employer] [address] [facility] [address] [place] [address] PCP - [employer] 12/10/22 Saddle Tree Stitcher Relationship Specialty Start Date End Date Darion Randle MD [address] [facility] [address] [place] [address] PCP - General Family Medicine 08/14/22 Lexis Keen, REVERBERATORY [employer]CE SUPERVISOR-[employer] [address] [facility] [address] [place] [address] PCP - [employer] 12/10/22 Saddle Tree Stitcher Relationship Specialty Start Date End Date Darion Randle MD [address] [facility] [address] [place] [address] PCP - General Family Medicine 08/14/22 Lexis Keen, REVERBERATORY F[employer]NACE SUPERVISOR-[employer] [address] [facility] [address] [place] [address] PCP - [employer] 12/10/22 Saddle Tree Stitcher Relationship Specialty Start Date End Date Darion Randle MD [address] [facility] [address] [place] [address] PCP - General Family Medicine 08/14/22 Lexis Keen, REVERBERATORY [employer]CE SUPER[employer]OR-[employer] [address] [facility] [address] [place] [address] PCP - [employer] 12/10/22 Saddle Tree Stitcher Relationship Specialty Start Date End Date Darion Randle MD [address] [facility] [address] [place] [address] PCP - General Family Medicine 08/14/22 Lexis Keen, REVERBERATORY F[employer]NACE SUPERVISOR-[employer] [address] [facility] [address] [place] [address] PCP - [employer] 12/10/22 Saddle Tree Stitcher Relationship Specialty Start Date End Date Darion Randle MD [address] [facility] [address] [place] [address] PCP - General Family Medicine 08/14/22 Lexis Keen, REVERBERATORY [employer]CE SUPERVISOR-[employer] [address] [facility] [address] [place] [address] PCP - [employer] 12/10/22 Saddle Tree Stitcher Relationship Specialty Start Date End Date Darion Randle MD [address] [facility] [address] [place] [address] PCP - General Family Medicine 08/14/22 Lexis Keen, REVERBERATORY F[employer]NACE SUPERVISOR-[employer] [address] [facility] [address] [place] [address] PCP - [employer] 12/10/22 Saddle Tree Stitcher Relationship Specialty Start Date End Date Darion Randle MD [address] [facility] [address] [place] [address] PCP - General Family Medicine 08/14/22 FinnLexis Mitchell, REVERBERATORY F[employer]NACE SUPERVISOR-[employer] [address] [facility] [address] [place] [address] PCP - [employer] 12/10/22 S[employer] Stitcher Relationship Specialty Start Date End Date Darion Randle MD [address] [facility] [address] [place] [address] PCP - General Family Medicine 08/14/22 Lexis Keen, REVERBERATORY [employer]CE SUPER[employer]OR-[employer] [address] [facility] [address] [place] [address] PCP - [employer] 12/10/22 S[employer] Stitcher Relationship Specialty Start Date End Date Darion Randle MD [address] [facility] [address] [place] [address] PCP - General Family Medicine 08/14/22 Lexis Keen, REVERBERATORY F[employer]NACE SUPERVISOR-[employer] [address] [facility] [address] [place] [address] PCP - [employer] 12/10/22 S[employer] Stitcher Relationship Specialty Start Date End Date Darion Randle MD [address] [facility] [address] [place] [address] PCP - General Family Medicine 08/14/22 Lexis Keen, REVERBERATORY FURNACE SUPERVISOR-[employer] [address] [facility] [address] [place] [address] PCP - [place] [employer] 12/10/22 Saddle Tree Stitcher Relationship Specialty Start Date End Date Darion Randle MD [address] [facility] [address] [place] [address] PCP - General Family Medicine 08/14/22 Lexis Keen, REVERBERATORY FURNACE SUPERVISOR-[employer] [address] [facility] [address] [place] [address] PCP - [place] [employer] 12/10/22 Saddle Tree Stitcher Relationship Specialty Start Date End Date Darion Randle MD [address] [facility] [address] [place] [address] PCP - General Family Medicine 08/14/22 FinnLexis Lemus, REVERBERATORY FURNACE SUPERVISOR-[employer] [address] [facility] [address] [place] [address] PCP - [place] [employer] 12/10/22 Belgica Ayers RN Clinical Advocate Family Medicine 05/18/24 Saddle Tree Stitcher Relationship Specialty Start Date End Date Darion Randle MD [address] [facility] [address] [place] [address] PCP - General Family Medicine 08/14/22 Lexis Keen, REVERBERATORY FURNACE SUPERVISOR-[facility] [address] [facility] [address] [place] [address] PCP - [place] [employer] 12/10/22 Belgica Ayers, RN Clinical Advocate Family [facility] 05/18/24 Saddle Tree Stitcher Relationship Specialty Start Date End Date Darion Randle MD [address] [facility] [address] [place] [address] PCP - General Family Medicine 08/14/22 Lexis Keen, REVERBERATORY FURNACE SUPERVISOR-[employer] [address] [facility] [address] [place] [address] PCP - [place] [employer] 12/10/22 Belgica Ayers, RN Clinical Advocate Family Medicine 05/18/24 Saddle Tree Stitcher Relationship Specialty Start Date End Date Darion Randle MD [address] [facility] [address] [place] [address] PCP - General Family Medicine 08/14/22 Lexis Keen, REVERBERATORY FURNACE SUPERVISOR-[facility] [address] [facility] [address] [place] [address] PCP - [place] [employer] 12/10/22 Rachelle Monge LPN 06/29/24 Team Status: Active Member Role Status Dates NON STAFF Primary Care Provider Active Start: June 07, 2024 Gary Wiley MD Attending Provider Active Start: June 07, 2024 Team Status: Active Member Role Status Dates Darion Randle MD Primary Care Provider Active S tart: July 04, 2024 Fani Dill MD Attending Provider Active Star t: July 04, 2024 Team Status: Inactive Member Role Status Dates Darion Randle MD Primary Care Provider Active S tart: July 10, 2024 End: July 10, 2024 Fani Dill MD Attending Provider Active Star t: July 10, 2024 End: July 10, 2024 Saddle Tree Stitcher Relationship Specialty Start Date End Date Darion Randle MD [address] [facility] [address] [place] [address] PCP - General Family Medicine 08/14/22 Lexis Keen, [facility] [address] [facility] [address] [place] [address] PCP - [employer] [employer] 12/10/22 Rachelle Monge [facility] 06/29/24 Saddle Tree Stitcher Relationship Specialty Start Date End Date Darion Randle MD [address] [facility] [address] [place] [address] PCP - General Family Medicine 08/14/22 Lexis Keen, [facility] [address] [facility] [address] [place] [address] PCP - [employer] [employer] 12/10/22 Rachelle Monge [employer]ESSION[employer] 06/29/24 Saddle Tree Stitcher Relationship Specialty Start Date End Date Darion Randle MD [address] [facility] [address] [place] [address] PCP - General Family Medicine 08/14/22 Rachelle Monge PROFESSIONAL SHOPPER 06/29/24 Saddle Tree Stitcher Relationship Specialty Start Date End Date Darion Randle MD [address] [facility] [address] [place] [address] PCP - General Family Medicine 08/14/22 Rachelle Monge LPN 06/29/24 Saddle Tree Stitcher Relationship Specialty Start Date End Date Darion Randle MD [address] [facility] [address] [place] [address] PCP - General Family Medicine 08/14/22 Rachelle Monge LPN 06/29/24 Saddle Tree Stitcher Relationship Specialty Start Date End Date Darion Randle MD [address] [facility] [address] [place] [address] PCP - General Family Medicine 08/14/22 Rachelle Monge LPN [address] [facility] [address] [place] [address] 06/29/24 Saddle Tree Stitcher Relationship Specialty Start Date End Date Darion Randle MD [address] [facility] [address] [place] [address] PCP - General Family Medicine 08/14/22 Rachelle Monge LPN [address] [facility] [address] [place] [address] 06/29/24 Saddle Tree Stitcher Relationship Specialty Start Date End Date Darion Randle MD [address] [facility] [address] [place] [address] PCP - General Family Medicine 08/14/22 Rachelle Monge LPN [address] [facility] [address] [place] [address] 06/29/24 Saddle Tree Stitcher Relationship Specialty Start Date End Date Darion Randle MD [address] [facility] [address] [place] [address] PCP - General Family Medicine 08/14/22 Rachelle Monge LPN [address] [facility] [address] [place] [address] 06/29/24 Saddle Tree Stitcher Relationship Specialty Start Date End Date Darion Randle MD [address] [facility] [address] [place] [address] PCP - General Family Medicine 08/14/22 Rachelle Monge LPN [address] [facility] [address] [place] [address] 06/29/24 Saddle Tree Stitcher Relationship Specialty Start Date End Date Darion Randle MD [address] [facility] [address] [place] [address] PCP - General Family Medicine 08/14/22 Rachelle Monge LPN [address] [facility] [address] [place] [address] 06/29/24 Goals (unrecognized section and content) Goals may be documented in a n alternate section Source Comments (unrecognize d section and content) In the event this informatio n is protected by the Federal Confidentiality of Alcohol and Drug Abuse Patient Records regulations: The Federal rules restrict any use of the information to criminally investigate or prosecute any alcohol or drug abuse patient.[facility]bleIn the event this information is protected by the Federal Confidentiality of Alcohol and Drug Abuse Patient Records regulations: The Federal rules restrict any use of the information to criminally investigate or prosecute any alcohol or drug abuse patient.[facility]bleIn the event this information is protected by the Federal Confidentiality of Alcohol and Drug Abuse Patient Records regulations: The Federal rules restrict any use of the information to criminally investigate or prosecute any alcohol or drug abuse patient.[facility]bleIn the event this information is protected by the Federal Confidentiality of Alcohol and Drug Abuse Patient Records regulations: The Federal rules restrict any use of the information to criminally investigate or prosecute any alcohol or drug abuse patient.[facility]bleIn the event this information is protected by the Federal Confidentiality of Alcohol and Drug Abuse Patient Records regulations: The Federal rules restrict any use of the information to criminally investigate or prosecute any alcohol or drug abuse patient.[facility]bleIn the event this information is protected by the Federal Confidentiality of Alcohol and Drug Abuse Patient Records regulations: The Federal rules restrict any use of the information to criminally investigate or prosecute any alcohol or drug abuse patient.[facility]bleIn the event this information is protected by the Federal Confidentiality of Alcohol and Drug Abuse Patient Records regulations: The Federal rules restrict any use of the information to criminally investigate or prosecute any alcohol or drug abuse patient.[facility]bleIn the event this information is protected by the Federal Confidentiality of Alcohol and Drug Abuse Patient Records regulations: The Federal rules restrict any use of the information to criminally investigate or prosecute any alcohol or drug abuse patient.[facility]bleIn the event this information is protected by the Federal Confidentiality of Alcohol and Drug Abuse Patient Records regulations: The Federal rules restrict any use of the information to criminally investigate or prosecute any alcohol or drug abuse patient.[facility]bleIn the event this information is protected by the Federal Confidentiality of Alcohol and Drug Abuse Patient Records regulations: The Federal rules restrict any use of the information to criminally investigate or prosecute any alcohol or drug abuse patient.[facility]bleIn the event this information is protected by the Federal Confidentiality of Alcohol and Drug Abuse Patient Records regulations: The Federal rules restrict any use of the information to criminally investigate or prosecute any alcohol or drug abuse patient.[facility]bleIn the event this information is protected by the Federal Confidentiality of Alcohol and Drug Abuse Patient Records regulations: The Federal rules restrict any use of the information to criminally investigate or prosecute any alcohol or drug abuse patient.[facility]bleIn the event this information is protected by the Federal Confidentiality of Alcohol and Drug Abuse Patient Records regulations: The Federal rules restrict any use of the information to criminally investigate or prosecute any alcohol or drug abuse patient.[facility]bleIn the event this information is protected by the Federal Confidentiality of Alcohol and Drug Abuse Patient Records regulations: The Federal rules restrict any use of the information to criminally investigate or prosecute any alcohol or drug abuse patient.[facility] FOR RECORDS PERTAINING TO PATIENTS WHO ARE [...] BE BASED ON THE PRIMARY CLINICAL RECORDS. [facility]. provides no warranty or guarantee of the accuracy or completeness of information in this document.
[2024-12-26 13:49] LABS: Microalbum Creatinine Ratio Ur 27.0 mg/g (0.0-29.9); Protein Creatinine Ratio Urine 0.18; Total Protein Urine Random 9.9 mg/dL (<=11.9)
[2024-12-26 13:55] LABS: Albumin Level 3.6 g/dL (3.4-5.0); Anion Gap 14.6; Blood Urea Nitrogen 37.0 mg/dL (7.0-18.0); Calcium 8.9 mg/dL (8.5-10.1); Carbon Dioxide 20.8 mmol/L (21.0-32.0); Chloride 107 mmol/L (98-107); Estimated GFR (African America 39 (>=60 mL/min/1.73m^2); Estimated GFR (Non-African Ame 32 (>=60 mL/min/1.73m^2); Glucose 205 mg/dL (74-106); Magnesium 1.6 mg/dL (1.8-2.4); Potassium 3.4 mmol/L (3.5-5.1); Sodium 139 mmol/L (136-145); Uric Acid 7.1 mg/dL (3.5-7.2)
[2024-12-26 15:24] LABS: Hematocrit 40.3 % (42.0-54.0); Hemoglobin 14.3 g/dL (14.0-18.0); Mean Corpuscular HGB Conc 35.5 g/dL (29.9-35.2); Mean Corpuscular Hemoglobin 30.8 pg (25.9-34.0); Mean Corpuscular Volume 86.7 fL (80.0-94.0); Platelet Count 266 10^3/uL (150-450); Red Blood Count 4.65 10^6/uL (4.70-6.10); White Blood Count 8.8 10^3/uL (4.0-11.0)
== END 2024-12-26 13:11 | disposition home or self-care (01) ==
PROVIDERS: PCP Family Medicine; Visit Provider Internal Medicine Nephrology
DX: E83.42 Hypomagnesemia (principal); N39.43 Post-void dribbling; E87.20 Acidosis, unspecified; I95.9 Hypotension, unspecified; N20.0 Calculus of kidney; E87.6 Hypokalemia; E11.22 Type 2 diabetes mellitus with diabetic chronic kidney disease; D64.9 Anemia, unspecified; E66.9 Obesity, unspecified; N18.4 Chronic kidney disease, stage 4 (severe)
CPT/HCPCS: 36415; 80069; 82043; 82306; 82570; 83735; 83970; 84156; 84550; 85027